=== PATIENT | male | born 1955 | race Caucasian/White ===

== ENCOUNTER 2017-06-11 16:09 | Inpatient (IN) | payer BC ==
--- NOTE | 2017-06-11 16:47 | EKG ---
Test Date: 2017-06-11 Test Time: 16:30:48 Catalyst Recovery Operator: ALLISON MEASUREMENT RESULTS: Intervals: Rate: 144 WA: QRSD: 104 QT: 330 QTc: 510 [place]: P: WA: QRS: -12 T: 150 INTERPRETIVE STATEMENTS: Atrial fibrillation with rapid ventricular response Moderate voltage criteria for LVH, may be normal variant ST & T wave abnormality, consider lateral ischemia or digitalis effect Abnormal ECG Compared to ECG 11/07/2006 06:21:15 Possible ischemia now present Sinus rhythm no longer present Atrial premature complex(es) no longer present Prolonged QT interval no longer present ST (T wave) deviation still present Electronically Signed On 06-11-17 16:46:35 CDT by Ricardo Garcia
[2017-06-11] MEDS ORDERED: METOPROLOL TARTRATE 5 MG/5 ML INJ IV ONE (17:02)
[2017-06-11 17:13] LABS: Protime INR 1.41
[2017-06-11 17:23] LABS: Potassium 3.2 mEq/L (3.6-5.0)
[2017-06-11 17:29] LABS: Bilirubin Direct 1.4 mg/dL (0-0.2); Bilirubin Total 3.2 mg/dL (0.3-1.2); Magnesium 1.8 mg/dL (1.8-2.5)
[2017-06-11 17:32] LABS: CKMB Creatine Kinase MB 4.8 ng/ml (0.3-4.0)
[2017-06-11 17:59] LABS: Thyroid Stimulating Hormone 2.31 uIU/mL (0.34-5.60)
--- NOTE | 2017-06-11 18:02 | RAD REPORT ---
EXAM DESCRIPTION: RAD - Chest Single View - 06/11/2017 5:35 pm CLINICAL HISTORY: Chest pain COMPARISON: CT imaging April 2017 TECHNIQUE: AP portable chest image was obtained 1721 hours . FINDINGS: Small to moderate right pleural effusion is present similar to the April CT study. Trachea is midline. Right lung base atelectasis is present. Minimal infiltrate could be masked. Left lung fi eld is clear. Heart size within normal limits. No pneumothorax. No gross bony abnormality seen. No ac rahul aortic findings suspected. IMPRESSION: Small to moderate right pleural effusion and right base atelectasis are similar to a [facility] 16 CT chest.
--- NOTE | 2017-06-11 18:43 | ER ---
Nurse's Notes [facility] Name: Tex Vergara Age: 61 yrs Sex: Male : 1955 Arrival Date: 06/11/2017 Time: 16:11 Bed 6 Private MD: Diagnosis: Persistent atrial fibrillation;Dyspnea, unspecified Presentation: 06/11 16:17 Presenting complaint: Patient states: I had a EKG an my PCP on Sunday and my rate was la1 145, she told me to come in to the ER but I thought she meant that they would call me when I should come in so I am just making it now. Pt reports fatigue, dizziness at home. Transition of care: patient was not received from another setting of care. Onset of symptoms was June 11, 2017. Initial Sepsis Screen: Does the patient meet any 2 criteria? No. Patient's initial sepsis screen is negative. Does the patient have a suspected source of infection? No. Patient initial sepsis screen negative. Care prior to arrival: None. 16:17 Method Of Arrival: Ambulatory la1 16:17 Acuity: SUMMER 2 la1 Historical: - Allergies: 16:18 No Known Allergies; la1 - PMHx: 16:18 Hypertension; la1 - Immunization history:: Adult Immunizations up to date. - Social history:: Smoking status: Patient uses tobacco products, smokes one pack cigarettes per day. - Family history:: not pertinent. - Hospitalizations: : No recent hospitalization is reported. Screenin:40 Abuse screen: Denies threats or abuse. Denies injuries from another. Nutritional sg screening: No deficits noted. Tuberculosis screening: No symptoms or risk factors identified. Never had TB. Fall Risk None identified. Assessment: 16:40 General: Appears in no apparent distress. comfortable, well groomed, well developed, sg well nourished, Behavior is calm, cooperative, appropriate for age. Pain: Denies pain. Neuro: Level of Consciousness is awake, alert, obeys commands, Oriented to person, place, time, situation, Master Control Engineer are equal bilaterally Moves all extremities. Full function Speech is normal, Facial symmetry appears normal. Cardiovascular: Heart tones S1 S2 present Capillary refill is brisk in bilateral fingers Patient's skin is warm and dry. Chest pain is denied. Respiratory: Airway is patent Respiratory effort is even, unlabored, Respiratory pattern is regular, symmetrical, Breath sounds are clear. GI: No signs and/or symptoms were reported involving the gastrointestinal system. : No signs and/or symptoms were reported regarding the genitourinary system. EENT: No deficits noted. Derm: Skin is normal. Musculoskeletal: No signs and/or symptoms reported regarding the musculoskeletal system. 20:31 Reassessment: report given to Lisa MARQUEZ. bb Vital Signs: 16:19 BP 135 / 105; Pulse 146; Resp 19; Temp 98.9; Pulse Ox 100% on R/A; Weight 86.18 kg; la1 Height 5 ft. 8 in. (172.72 cm); 17:21 BP 143 / 103; Pulse 113 MON; Resp 18 S; Pulse Ox 99% on R/A; sg 18:08 BP 133 / 96; Pulse 102; Resp 18; Pulse Ox 100% on R/A; jb1 19:46 BP 135 / 93; Pulse 110; Resp 24; Temp 98.4; Pulse Ox 96% on R/A; Pain 0/10; ak1 16:19 Body Mass Index 28.89 (86.18 kg, 172.72 cm) la1 17:21 A fib sg ED Course: 16:11 Patient arrived in ED. as 16:18 Triage completed. la1 16:19 Arm band placed on right wrist. la1 16:22 Wale Concepcion MD is Attending Physician. rn 16:49 EKG done, by rail technician. reviewed by Wale Concepcion MD. at1 16:57 Nando Mobley, ALMA is Primary Nurse. sg 17:34 X-ray completed. Portable x-ray completed in exam room. Patient tolerated procedure mh1 well. 17:36 XRAY Chest (1 view) In Process Unspecified. EDMS 18:43 Avel Joyner MD is Hospitalizing Provider. rn 19:08 Urine collected: clean catch specimen, cloudy, tea colored. jb1 19:42 No provider procedures requiring assistance completed. IV is patent, 20g right AC tl1 placed prior to my care.. Patient admitted, IV remains in place. 19:47 Patient has correct armband on for positive identification. Placed in gown. Bed in low ak1 position. Call light in reach. Side rails up X 1. head of english on. Pulse ox on. NIBP on. Administered Medications: 16:55 Drug: Metoprolol 5 mg Route: IVP; Site: right antecubital; sg 17:21 Drug: Metoprolol 5 mg Route: IVP; Site: right antecubital; sg 17:45 Drug: Metoprolol 5 mg Route: IVP; Site: right antecubital; sg 19:00 Drug: Potassium Chloride 40 mEq Route: PO; tl1 Outcome: 18:43 Decision to Hospitalize by Provider. rn 19:47 Admitted to Tele accompanied by tech, family with patient, via wheelchair, with chart. ak1 19:47 Condition: stable 19:47 Instructed on the need for admit. 20:36 Patient left the ED. bb Signatures: Dispatcher [employer] EDMS Matt Brody jb1 Nando Mobley RN RN sg Leona Varghese 1 Alix Whitkaer Brenda, RN RN bb Wale Concepcion MD MD rn gonzales, Amanda, interior design program chair EKG Tat1 Kavon Kim RN RN la1 Jessica Barrera RN RN tl1 Kierra Rodriguez RN RN ak1
--- NOTE | 2017-06-11 18:43 | EDPHYS ---
Physician Documentation [facility] Name: Tex Vergara Age: 61 yrs Sex: Male : 1955 Arrival Date: 06/11/2017 Time: 16:11 Bed 6 Private MD: ED Physician Wale Concepcion HPI: 06/11 18:40 This 61 yrs old Male presents to ER via Ambulatory with complaints of rn Abnormal EKG. 18:40 The patient presents with a history of heart racing. Onset: The symptoms/episode rn began/occurred 4 day(s) ago. Modifying factors: The symptoms are aggravated by light activity. Severity of symptoms: At their worst the symptoms were moderate in the emergency department the symptoms are unchanged. The patient has not experienced similar symptoms in the past. States palpitations and heart racing, for 3-4 days, seen by pcp, told to come to ER last Sunday, patient was confused, so didn't come in, came in today, reports not any worse but hasn't gotten better, + dyspnea on exertion, no chest pain. . Historical: - Allergies: 16:18 No Known Allergies; la1 - PMHx: 16:18 Hypertension; la1 - Immunization history:: Adult Immunizations up to date. - Social history:: Smoking status: Patient uses tobacco products, smokes one pack cigarettes per day. - Family history:: not pertinent. - Hospitalizations: : No recent hospitalization is reported. ROS: 18:40 Constitutional: Negative for fever, chills, and weight loss, Eyes: Negative for injury, rn pain, redness, and discharge, Neck: Negative for injury, pain, and swelling, Cardiovascular: Negative for edema Respiratory: Negative for shortness of breath, cough, wheezing, and pleuritic chest pain, Abdomen/GI: Negative for abdominal pain, nausea, vomiting, diarrhea, and constipation, Back: Negative for injury and pain, MS/Extremity: Negative for injury and deformity, Skin: Negative for injury, rash, and discoloration, Neuro: Negative for headache, weakness, numbness, tingling, and seizure. Exam: 18:40 Constitutional: This is a well developed, well nourished patient who is awake, alert, rn and in no acute distress. Head/Face: Normocephalic, atraumatic. Eyes: Pupils equal round and reactive to light, extra-ocular motions intact. Lids and lashes normal. Conjunctiva and sclera are non-icteric and not injected. Cornea within normal limits. Periorbital areas with no swelling, redness, or edema. Neck: Trachea midline, no thyromegaly or masses palpated, and no cervical lymphadenopathy. Supple, full range of motion without nuchal rigidity, or vertebral point tenderness. No Meningismus. Cardiovascular: tachycardic, irregular, no murmur Respiratory: Lungs have equal breath sounds bilaterally, clear to auscultation and percussion. No rales, rhonchi or wheezes noted. No increased work of breathing, no retractions or nasal flaring. Abdomen/GI: Soft, non-tender, with normal bowel sounds. No distension or tympany. No guarding or rebound. No evidence of tenderness throughout. MS/ Extremity: Pulses equal, no cyanosis. Neurovascular intact. Full, normal range of motion. Equal circumference. Neuro: Awake and alert, GCS 15, oriented to person, place, time, and situation. Cranial nerves II-XII grossly intact. Motor strength 5/5 in all extremities. Sensory grossly intact. Cerebellar exam normal. Vital Signs: 16:19 BP 135 / 105; Pulse 146; Resp 19; Temp 98.9; Pulse Ox 100% on R/A; Weight 86.18 kg; la1 Height 5 ft. 8 in. (172.72 cm); 17:21 BP 143 / 103; Pulse 113 MON; Resp 18 S; Pulse Ox 99% on R/A; sg 18:08 BP 133 / 96; Pulse 102; Resp 18; Pulse Ox 100% on R/A; jb1 19:46 BP 135 / 93; Pulse 110; Resp 24; Temp 98.4; Pulse Ox 96% on R/A; Pain 0/10; ak1 16:19 Body Mass Index 28.89 (86.18 kg, 172.72 cm) la1 17:21 A fib sg MDM: 16:22 Patient medically screened. rn 18:40 Differential diagnosis: arrythmia, dehydration, stress disorder. Data reviewed: vital rn signs, nurses notes, lab test result(s), EKG, and as a result, I will admit patient. Counseling: I had a detailed discussion with the patient and/or guardian regarding: the historical points, exam findings, and any diagnostic results supporting the discharge/admit diagnosis, lab results, radiology results, the need for further work-up and treatment in the hospital. Response to treatment: the patient's symptoms have markedly improved after treatment, and as a result, I will admit patient. Admission orders: after a detailed discussion of the patient's condition and case, the admit orders are written by me. 06/11 16:35 Order name: Basic Metabolic Panel; Complete Time: 18:09 rn 06/11 16:35 Order name: CBC with Diff rn 06/11 16:35 Order name: Ckmb; Complete Time: 18:09 rn 06/11 16:35 Order name: CPK; Complete Time: 18:09 rn 06/11 16:35 Order name: LFT's; Complete Time: 18: rn 06/11 16:35 Order name: Magnesium; Complete Time: 18: rn 06/11 16:35 Order name: PT-INR; Complete Time: 17:37 rn 06/11 16:35 Order name: Ptt, Activated; Complete Time: 17:37 rn 06/11 16:35 Order name: Troponin (emerg Dept Use Only); Complete Time: 17:37 rn 06/11 16:35 Order name: TSH; Complete Time: 18:09 rn 06/11 16:35 Order name: T4 Free; Complete Time: 18: rn 06/11 18:53 Order name: Comprehensive Metabolic Panel EDMS 06/11 18:53 Order name: Comprehensive Metabolic Panel EDMS 06/11 16:35 Order name: XRAY Chest (1 view); Complete Time: 18:09 rn 06/11 16:35 Order name: EKG; Complete Time: 16:39 rn 06/11 18:53 Order name: CONS Pharmacy Consult EDMS 06/11 18:53 Order name: Comprehensive Metabolic Panel EDMS 06/11 18:53 Order name: Comprehensive Metabolic Panel EDMS 06/11 18:53 Order name: Magnesium EDMS 06/11 18:53 Order name: Magnesium EDMS 06/11 18:54 Order name: Urinalysis EDMS 06/11 18:54 Order name: CBC with Automated Diff EDMS 06/11 18:54 Order name: CBC with Automated Diff EDMS 06/11 18:54 Order name: CBC with Automated Diff EDMS 06/11 18:54 Order name: CBC with Automated Diff EDMS 06/11 19:13 Order name: Urine Dipstick--Ancillary (enter results) em1 06/11 19:20 Order name: Urine Dipstick-Ancillary EDSD 06/11 16:35 Order name: Cardiac monitoring; Complete Time: 16:56 rn 06/11 16:35 Order name: EKG - Nurse/Tech; Complete Time: 19:09 rn 06/11 16:35 Order name: IV Saline Lock; Complete Time: 16:56 rn 06/11 16:35 Order name: Labs collected and sent; Complete Time: 16:56 rn 06/11 16:35 Order name: O2 Per Protocol; Complete Time: 16:56 rn 06/11 16:35 Order name: O2 Sat Monitoring; Complete Time: 16:56 rn 06/11 16:35 Order name: Urine Dipstick-Ancillary (obtain specimen); Complete Time: 19:08 rn 06/11 18:53 Order name: CONS Physician Consult EDSD 06/11 18:54 Order name: Heart Healthy EDSD Administered Medications: 16:55 Drug: Metoprolol 5 mg Route: IVP; Site: right antecubital; sg 17:21 Drug: Metoprolol 5 mg Route: IVP; Site: right antecubital; sg 17:45 Drug: Metoprolol 5 mg Route: IVP; Site: right antecubital; sg 19:00 Drug: Potassium Chloride 40 mEq Route: PO; tl1 Disposition: 06/11/17 18:43 Hospitalization ordered by Avel Joyner for Inpatient Admission. Preliminary diagnosis are Persistent atrial fibrillation, Dyspnea, unspecified. - Bed requested for Telemetry/MedSurg (Inpatient). - Status is Inpatient Admission. bb - Condition is Stable. - Problem is new. - Symptoms have improved. UTI on Admission? No Signatures: Dispatcher [employer] EDSD Leona Mahan RN RN mw Gay, Steven RN ALMA sg Anyi Petersen RN RN bb Nieto, Roman, MD MD rn Attema, Lee, RN RN la1 Jessica Barrera RN RN tl1 Corrections: (The following items were deleted from the chart) 17:05 16:39 BNP+C.LAB.BRZ ordered. [facility] EDSD
[2017-06-11] MEDS ORDERED: ONDANSETRON 4 MG/2 ML VIAL IV PRN (18:49)
[2017-06-11] MEDS ORDERED: ACETAMINOPHEN 500 MG TAB PO PRN (18:49)
[2017-06-11] MEDS ORDERED: METOPROLOL TARTRATE 5 MG/5 ML INJ IV PRN (18:53)
[2017-06-11] MEDS ORDERED: POTASSIUM CL SA 10 MEQ TAB PO ONE (18:57)
[2017-06-11 18:58] LABS: Absolute Lymphocytes (CBC) 1.7 K/uL (0.7-4.9); Absolute Neutrophil 4.9 K/uL (1.8-8.0); Basophils % 1.2 % (0-1.3); Eosinophils % 2.2 % (0-4.4); Hematocrit 48.2 % (39.6-49.0); MCH 25.4 pg (27.0-35.0); MCV 77.4 fL (80-100); MPV 8.6 fL (7.6-11.3); Monocytes % 12.7 % (3.3-12.3); RBC Red Blood Cell Count 6.23 M/uL (4.33-5.43)
[2017-06-11] MEDS: NA CHLORIDE 0.9% 1,000 ML IV SCH ×2 (19:00→21:50)
[2017-06-11 19:20] LABS: Urine Blood 1+ (NEG); Urine Glucose NEGATIVE (NEG); Urine Protein 3+ (NEG); Urine Specific Gravity 1.025 (1.005-1.030); Urine pH 6.5 (5.0-7.0)
--- NOTE | 2017-06-11 20:33 | P.HP ---
Certification for Inpatient Patient admitted to: Inpatient With expected LOS: >2 Midnights Practitioner: I am a practitioner with admitting privileges, knowledge of patient current condition, hospital course, and medical plan of care. Services: Services provided to patient in accordance with Admission requirements found in Title 42 Section 412.3 of the Code of Federal Regulations Patient History Date of Service: 06/11/17 Reason for admission: new onset A.Fib History of Present Illness: Mr Vergara is a 61 years old man with history of HTN, who start about 3-4 weeks ago with palpitations. He has been feeling that his heart is racing with minimal exercise. He has had SOB as well, being worse in the last few days. He denied any fever or chills. He went to see his PCP last 3 days ago, and was referred to come to ED for evaluation. The patient was confused with the advise and came today. He denied any chest pain associated with his symptoms. Lab work is remarkable for elevated bilirubin, alk phos, elevated AST, TSH within normal limits. He drinks 5 or more beers on daily basis. He denied any abdominal pain. Allergies No Known Allergies Allergy (Unverified 06/11/17 20:11) - Past Medical/Surgical History -: HTN -: chronic back pain Past Surgical History: Reviewed- Non-Contributory - Family History Family History: Reviewed- Non-Contributory - Social History Smoking Status: Current every day smoker Counseled patient to stop smoking for: less than 10 minutes Smoking therapy provided: Yes Patient receptive to therapy: Yes Alcohol use: Yes CD- Drugs: No Place of Residence: Home Review of Systems 10-point ROS is otherwise unremarkable Physical Examination - Physical Exam General: Alert, In no apparent distress HEENT: PERRLA, Mucous membr. moist/pink, EOMI, Sclerae nonicteric Neck: Supple, 2+ carotid pulse no bruit, No LAD, Without JVD or thyroid abnormality Respiratory: Normal air movement, Diminished (right base) Cardiovascular: Regular rate/rhythm, Normal S1 S2 Gastrointestinal: Normal bowel sounds, Tenderness (mild tenderness to palpation RUQ) Musculoskeletal: No tenderness Integumentary: No rashes Neurological: Normal speech, Normal strength at 5/5 x4 extr, Normal tone, Normal affect Lymphatics: No axilla or inguinal lymphadenopathy - Studies Laboratory Data (last 24 hrs) 06/11/17 18:40: WBC 8.0, Hgb 15.8, Hct 48.2, Plt Count 229 06/11/17 16:50: PT 16.7 H, INR 1.41, APTT 22.1 L 06/11/17 16:50: B-Natriuretic Peptide Cancelled 06/11/17 16:50: Sodium 132 L, Potassium 3.2 L, BUN 18, Creatinine 1.28 H, Glucose 89, Magnesium 1.8, Total Bilirubin 3.2 H, AST 73 H, ALT 44, Alkaline Phosphatase 157 H Assessment and Plan - Problems (Diagnosis) (1) New onset atrial fibrillation Current Visit: Yes Status: Acute (2) HTN (hypertension) Current Visit: Yes Status: Acute Qualifiers: Hypertension type: essential hypertension Qualified Code(s): I10 - Essential (primary) hypertension (3) Abnormal liver function Current Visit: Yes Status: Acute (4) Chronic back pain Current Visit: Yes Status: Acute Qualifiers: Back pain location: back pain in unspecified location Back pain laterality : unspecified Qualified Code(s): M54.9 - Dorsalgia, unspecified; G89.29 - Other chronic pain; G89.29 - Other chronic pain (5) Tobacco abuse Current Visit: Yes Status: Acute - Plan Mr Vergara will be admitted to the hospital due to new onset atrial fibrillation. HR is about 120's at the moment, will add oral metoprolol, he has been started on lovenox full dose, for eventual RICO and CV, cardiology consulted. Will order abdominal US to evaluated biliary tree. - Advance Directives Does patient have a Living Will: No Does patient have a Durable POA for Healthcare: No - Code Status/Comfort Care Code Status Assessed: Yes Code Status: Full Code
[2017-06-11] MEDS ORDERED: ENOXAPARIN 100 MG/ML SYR SQ SCH (21:00)
[2017-06-11 21:17] VITALS: BMI 28.8
[2017-06-11] MEDS: METOPROLOL TAR 25 MG TAB PO SCH (22:00)
[2017-06-11 22:23] LABS: Urine Appearance CLEAR; Urine Color DK YELLOW; Urine Glucose NEGATIVE (NEG)
[2017-06-11 22:24] LABS: Urine Bilirubin 2+ (NEG); Urine Blood 2+ (NEG); Urine Protein 3+ (NEG)
[2017-06-11 22:25] LABS: Urine Microscopic Reflex ORDER UMIC
[2017-06-11 22:32] LABS: Urine Bacteria <20 /HPF (NONE SEEN); Urine RBC 20-50 /HPF (NONE SEEN)
[2017-06-11 22:33] LABS: Urine Culture Reflex Order NOT NEEDED
[2017-06-11] MEDS: ENOXAPARIN 100 MG/ML SYR SQ SCH (23:15)
[2017-06-12] MEDS: NA CHLORIDE 0.9% 1,000 ML IV SCH (05:58)
[2017-06-12] MEDS: METOPROLOL TAR 25 MG TAB PO SCH (05:58)
[2017-06-12 06:10] LABS: Absolute Lymphocytes (CBC) 1.4 K/uL (0.7-4.9); Absolute Monocytes 0.7 K/uL (0.1-1.3); Absolute Neutrophil 4.3 K/uL (1.8-8.0); Basophils % 1.3 % (0-1.3); Eosinophils % 1.3 % (0-4.4); Hematocrit 48.2 % (39.6-49.0); MCH 24.8 pg (27.0-35.0); MCV 78.6 fL (80-100); MPV 9.1 fL (7.6-11.3); Monocytes % 11.2 % (3.3-12.3); RBC Red Blood Cell Count 6.13 M/uL (4.33-5.43)
[2017-06-12 06:26] LABS: Albumin 2.5 g/dL (3.2-5.5); Bilirubin Total 3.8 mg/dL (0.3-1.2); Potassium 3.9 mEq/L (3.6-5.0); Protein, Total 6.1 g/dL (6.0-8.3)
[2017-06-12] MEDS ORDERED: POTASSIUM CL SA 10 MEQ TAB PO ONE (06:49)
[2017-06-12] MEDS: ENOXAPARIN 100 MG/ML SYR SQ SCH (08:57)
--- NOTE | 2017-06-12 09:15 | RAD REPORT ---
EXAM DESCRIPTION: US - Abdomen Exam Complete - 06/12/2017 7:50 am CLINICAL HISTORY: Abnormal liver function COMPARISON: CT chest May 11, CT abdomen March 15 FINDINGS: Gallbladder size is normal. Multiple small mobile gallstones are identified. No wall thick ening or pericholecystic fluid. Common bile duct is 5 mm, normal with no common duct stone identified . No focal lesion identified within the liver parenchyma. No capsular nodularity. Portal vein was dif ficult to evaluate. No portal vein thrombus identifiable. No splenomegaly or focal splenic process se en. The pancreas is obscured. No pancreatic abnormality seen on the February CT study. No hydronephrosis or suspicious mass in either kidney. A small 11 mm right renal cyst is identified. Aorta is too obscured for assessment. No aneurysm or acute finding in February. No bulky lymphadenopat hy. Right pleural effusion is identified only partially imaged. Small amount of ascites is identified. IMPRESSION: Pleural effusion incompletely assessed. Small quantity of ascites identified. No hepatosplenomegaly or focal lesions identified. No nodular liver capsule or other suspicious liver finding. Multiple small gallstones without acute gallbladder or biliary tree finding. Pancreas and aorta are obscured. No abnormalities were seen in February.
[2017-06-12 10:05] VITALS: O2SAT 94
[2017-06-12] MEDS ORDERED: TRAMADOL HCL 50 MG TAB PO PRN (10:45)
[2017-06-12] MEDS ORDERED: BENZONATATE 100 MG CAP PO PRN (11:00)
[2017-06-12] MEDS ORDERED: CELECOXIB 100 MG CAPSULE PO PRN (11:00)
--- NOTE | 2017-06-12 11:15 | PN ---
Date of Progress Note: 06/12/2017 Subjective: The patient is seen and examined, chart reviewed, and case discussed with RN. The patie nt states he feels about the same, still in atrial fibrillation. Review of Systems: Negative except as above. Medications: Reviewed. Physical Examination: Vital Signs: Temperature 98.3, heart rate 109, blood pressure 141/87, respirations 20, O2 94% on franco m air. General: Awake, alert, oriented x3. No acute distress. CV: S1, S2. Irregularly irregular. Peripheral pulses present. No murmurs. Respiratory: Moving air well bilaterally. No wheezing. Gastrointestinal: Abdomen is soft, nontender, and nondistended. Positive bowel sounds. Extremities: No clubbing, cyanosis, or edema. Neurologic: Nonfocal. Laboratory Data: Sodium 135, potassium 3.9, chloride 101, CO2 26, BUN 21, creatinine 1.11, glucose 7 5, calcium 8.6, magnesium 2. Total bilirubin 3.8, AST 74, ALT 42, alkaline phosphatase 136, albumin 2.5. WBC 6.7, H and H 15.2 and 48.2, platelets 259. Abdominal ultrasound shows pleural effusion inc ompletely assessed, small quantity of ascites identified. No hepatomegaly or splenomegaly or focal l esions identified. No nodular liver capsule or other suspicious liver finding. Multiple small galls tones without acute gallbladder or biliary tree finding. Pancreas and aorta are obscured. No abnorm alities were seen in February for comparison. Assessment And Plan: A 61-year-old male with: 1.New onset atrial fibrillation, now rate controlled. Initially was in rapid ventricular rate. We will continue beta-blockers. Echocardiogram is pending. Appreciate Dr. Monsalve's input. 2.Mild elevated troponin level secondary to new onset atrial fibrillation. No chest pain. 3.Essential hypertension. We will resume home medications. 4.Abnormal LFTs of unclear etiology. Ultrasound of the liver does not show any abnormalities. No b iliary tree dilation. 5.Acute kidney injury, resolved. We will continue with IV fluids. 6.Hypokalemia, corrected. We will continue to monitor. 7.Hyponatremia, improved. 8.Chronic back pain, midline with sciatica. We will continue pain medications. 9.Nicotine dependence with cigarette smoking. Counseled. 10.Osteoarthritis, generalized. 11.Gastrointestinal and deep venous thrombosis prophylaxis addressed with PPI and Lovenox. Plan: Continue Lovenox therapeutic dose. Follow up on echocardiogram. The patient will need to be switched to oral anticoagulants before discharge. We will follow up with Cardiology. NENA Voice ID: [id number] Report ID: [id number]
--- NOTE | 2017-06-12 12:15 | CON ---
Date of Consultation: 06/12/[address] Joyner service on 06/11/2017. Reason For Consultation: Atrial fibrillation. History Of Present Illness: Mr. Vergara is a 61-year-old white male. He actually has an appointment yoana chinchilla with Dr. Garcia. Has seen Dr. Garcia in the past for a possible aneurysm, but apparently workup did not show that he had one. He went to his physician yesterday because of sinus problem, was foun d to have atrial fibrillation that is asymptomatic, was sent to the emergency room and was admitted. He denied any heart symptoms. Past Medical History: Includes hypertension. Allergies: NONE. Review of Systems: Negative. Social History: Negative. Family History: Negative. The patient has been placed on metoprolol since he was admitted and in at rial fibrillation at a rate of 100. Physical Examination: Vital Signs: Stable. Afebrile. Atrial fibrillation at 144 when he came in. HEENT: Negative. Neck: Supple. No bruit. Chest: Clear. Cardiac: Revealed atrial fibrillation. Abdomen: Benign. Extremities: No clubbing, cyanosis, or edema. Diagnostic Data: Creatinine is 1.28. Chest x-ray showed a small pleural effusion. Potassium 3.2, t roponin of 0.04. Impression And Plan: 1.Atrial fibrillation. Agree with metoprolol. I think the patient can go home on beta-blockers and an anticoagulant, preferably Eliquis considering his renal insufficiency 5 mg b.i.d. He has an appo intment today with Dr. Garcia. I will cancel that for 2 weeks at which time I think we should have a n outpatient Lexiscan if he has not had one and if he does not convert with beta scarlett such as Beta pace we will consider cardioversion. 2.Hypertension, well controlled. 3.Renal insufficiency. 4.Small right pleural effusion. 5.Elevated troponin secondary to tachycardia. 6.Hypokalemia that needs to be corrected. I will discuss the case with Dr. Joyner. LAY/ELIUDL Voice ID: [id number] Report ID: [id number]
[2017-06-12 12:17] VITALS: BP 127/89; TEMP 98.4
--- NOTE | 2017-06-12 12:25 | ECHO ---
HEIGHT: 5 ft 8 in WEIGHT: 190 lb 0 oz DATE OF STUDY: 06/02/[address]: Dmitry Marmolejo MD 2-DIMENSIONAL: YES M.MODE: YES DOPPLER: YES COLOR FLOW: YES TDS: PORTABLE: DEFINITY: BUBBLE STUDY: DIAGNOSIS: ATRIAL FIBRILLATION CARDIAC HISTORY: CATHERIZATION: NO SURGERY: YES PROSTHETIC VALVE: YES PACEMAKER: NO MEASUREMENTS (cm) DIASTOLIC (NORMALS) SYSTOLIC (NORMALS) IVSd 0.9 (0.6-1.2) LA Diam 5.0 (1.9-4.0) LVEF 50-55% LVIDd 4.5 (3.5-5.7) LVIDs 3.6 (2.0-3.5) %FS 21% LVPWd 0.9 (0.6-1.2) Ao Diam 4.0 (2.0-3.7) 2 DIMENSIONAL ASSESSMENT: RIGHT ATRIUM: DILATED LEFT ATRIUM: DILATED RIGHT VENTRICLE: NORMAL LEFT VENTRICLE: NORMAL TRICUSPID VALVE: NORMAL MITRAL VALVE: THICKENED CALCIFIED RING, PROBABLE RING ANNULOPLASTY PULMONIC VALVE: NORMAL AORTIC VALVE: BIO-PROSTHETIC PERICARDIAL EFFUSION: NONE AORTIC ROOT: LEFT VENTRICULAR WALL MOTION: NORMAL (LOWER LIMIT OF NORMAL LEFT VENTRICULAR EJECTION FRACTION) DOPPLER/COLOR FLOW: MODERATE MITRAL REGURGITATION. MILD MITRAL AND TRICUSPID REGURGITATION. ESTIMATED RIGHT VENTRICULAR SYSTOLIC PRESSURE 40 mmHg (MILD PULMONARY HYPERTENSION). NO SIGNIFICANT AORTIC STENOSIS. COMMENTS: NORMAL LEFT VENTRICULAR EJECTION FRACTION. DILATED LEFT AND RIGHT ATRIUM. PROBABLE BIO-PROSTHETIC VALVE AORTIC VALVE WITH MILD AORTIC REGURGITATION. NO AORTIC STENOSIS. NO MITRAL STENOSIS. MILD MITRAL REGURGITATION. MILD TRICUSPID REGURGITATION. MILD PULMONARY HYPERTENSION. LARGE RIGHT PLEURAL EFFUSION. TECHNOLOGIST: KARINA PRETTY
[2017-06-12] MEDS ORDERED: GABAPENTIN 300 MG CAP PO SCH (14:00)
--- NOTE | 2017-06-12 16:13 | P.DS ---
Admission Date: 06/11/17 Discharge Date: 06/12/17 Disposition: ROUTINE DISCHARGE Discharge Condition: FAIR Reason for Admission: new onset A.Fib Consultations: Cardiology Dr. Monsalve - Problems (1) Abnormal liver function Onset Date: 06/12/17 Status: Acute (2) Chronic back pain Onset Date: 06/12/17 Status: Acute Qualifiers: Back pain location: back pain in unspecified location Back pain laterality : unspecified Qualified Code(s): M54.9 - Dorsalgia, unspecified; G89.29 - Other chronic pain; G89.29 - Other chronic pain (3) HTN (hypertension) Onset Date: 06/12/17 Status: Acute Qualifiers: Hypertension type: essential hypertension Qualified Code(s): I10 - Essential (primary) hypertension (4) New onset atrial fibrillation Onset Date: 06/12/17 Status: Acute (5) Tobacco abuse Onset Date: 06/12/17 Status: Acute Brief History of Present Illness: From H and P Mr Vergara is a 61 years old man with history of HTN, who start about 3-4 weeks ago with palpitations. He has been feeling that his heart is racing with minimal exercise. He has had SOB as well, being worse in the last few days. He denied any fever or chills. He went to see his PCP last 3 days ago, and was referred to come to ED for evaluation. The patient was confused with the advise and came today. He denied any chest pain associated with his symptoms. Lab work is remarkable for elevated bilirubin, alk phos, elevated AST, TSH within normal limits. He drinks 5 or more beers on daily basis. He denied any abdominal pain. Hospital Course: Patient is a 61-year-old male who was admitted to the hospital for AFib with RVR , new onset. Patient was started on beta-blockers which improved his rate however patient stayed in atrial fibrillation. Cardiology was consulted and patient was evaluated. Patient recently saw Dr. Garcia in his office and had a recent echocardiogram which was normal. Patient to the did not have any chest pain. Did have mild troponin elevation which was secondary to the a AFib. The patient was started on anticoagulation with Lovenox and was switched over to Eliquis as outpatient. Patient otherwise did well over the course of the hospital stay. Patient was then cleared for discharge from cardiology standpoint. Patient will follow up with Dr. Garcia in his office in 2 weeks to have outpatient stress test. Patient was counseled extensively regarding smoking cessation and alcohol cessation. Patient did have some mild electrolyte abnormalities which were corrected. His TSH level was normal. Patient did have some mild acute kidney injury which was corrected with IV fluids. Patient was instructed to stop his Celebrex. Vital Signs/Physical Exam: Temp Pulse Resp BP Pulse Ox 98.4 F 102 H 20 127/89 94 06/12/17 12:00 06/12/17 12:00 06/12/17 12:00 06/12/17 12:00 06/12/17 12:00 Other Physical/Emotional Findings: PLEASE SEE PROGRESS NOTE DICTATED ON DAY OF DISCHARGE FOR PHYSICAL EXAM FINDINGS Laboratory Data at Discharge: WBC 6.7 K/uL (4.3-10.9) D 06/12/17 05:23 Hgb 15.2 g/dL (13.6-17.9) 06/12/17 05:23 Hct 48.2 % (39.6-49.0) 06/12/17 05:23 Plt Count 259 K/uL (152-406) 06/12/17 05:23 PT 16.7 SECONDS (9.5-12.5) H 06/11/17 16:50 INR 1.41 06/11/17 16:50 APTT 22.1 SECONDS (24.3-36.9) L 06/11/17 16:50 Sodium 135 mEq/L (135-145) 06/12/17 05:23 Potassium 3.9 mEq/L (3.6-5.0) 06/12/17 05:23 BUN 21 mg/dL (6-20) H 06/12/17 05:23 Creatinine 1.11 mg/dL (0.61-1.24) 06/12/17 05:23 Glucose 75 mg/dL (65-120) 06/12/17 05:23 Magnesium 2.0 mg/dL (1.8-2.5) 06/12/17 05:23 Total Bilirubin 3.8 mg/dL (0.3-1.2) H 06/12/17 05:23 AST 74 IU/L (10-42) H 06/12/17 05:23 ALT 42 IU/L (10-60) 06/12/17 05:23 Alkaline Phosphatase 136 IU/L (42-121) H 06/12/17 05:23 B-Natriuretic Peptide Cancelled 06/11/17 16:50 Home Medications: Amoxicillin [Amoxil] 1 tab PO BID 06/12/17 Apixaban [Eliquis] 5 mg PO BID #60 tablet 06/12/17 Benzonatate 1 cap PO TIDP PRN 06/12/17 Cyanocobalamin [Vitamin B-12*] 500 mcg PO DAILY 06/12/17 Fluticasone Propionate [Flovent Diskus] 1 spray JELENA BID 06/12/17 Folic Acid 1 mg PO DAILY 06/12/17 Gabapentin [Gralise] 1 tab PO TID 06/12/17 Hydrochlorothiazide [Hydrochlorothiazide*] 12.5 mg PO DAILY 06/12/17 Lisinopril 1 tab PO DAILY 06/12/17 Metoprolol Tartrate 50 mg PO BID #60 tablet 06/12/17 Potassium Gluconate 550 mg PO DAILY 06/12/17 Tramadol HCl [Ultram] 1 tab PO BIDP PRN 06/12/17 New Medications: Apixaban [Eliquis] 5 mg PO BID #60 tablet Metoprolol Tartrate 50 mg PO BID #60 tablet Patient Discharge Instructions: Follow up with PCP in 3 3 days. Follow up with rehab tech Dr. Garcia in 2 weeks. Return to ER for worsening condition Diet: AHA Activity: Ad mara Time spent managing pt's care (in minutes): 37
[2017-06-12] MEDS ORDERED: HOME MED 1 EA UNK (Fluticasone Propionate [Flovent Diskus] 1 SPRAY) NAS SCH (21:00)
[2017-06-13] MEDS ORDERED: FOLIC ACID 1 MG TABLET PO SCH (09:00)
[2017-06-13] MEDS ORDERED: CYANOCOBALAMIN 1,000 MCG TAB PO SCH (09:00)
[2017-06-13] MEDS ORDERED: POTASSIUM GLUCONATE 550 MG PO SCH (09:00)
[2017-06-13] MEDS ORDERED: LISINOPRIL 10 MG TAB PO SCH (09:00)
== END 2017-06-12 14:33 | disposition home or self-care (01) | DRG 309 ==
LOC: ER 16:09 → ERHOLD 18:43 → 4TH 20:13
PROVIDERS: ADMIT Family Medicine; ATTEND Internal Medicine
DX: I48.91 Unspecified atrial fibrillation (principal); N17.9 Acute kidney failure, unspecified; E87.1 Hypo-osmolality and hyponatremia; I10 Essential (primary) hypertension; F17.210 Nicotine dependence, cigarettes, uncomplicated; R94.5 Abnormal results of liver function studies; M54.9 Dorsalgia, unspecified; E87.6 Hypokalemia; M54.30 Sciatica, unspecified side; M15.9 Polyosteoarthritis, unspecified
CPT/HCPCS: 36415; 71045; 76700; 80048; 80053; 80076; 81003; 81015; 82550; 82553; 83735; 84439; 84443; 84484; 85025; 85610; 85730; 93005; 93306; 94760; 96374; 99285; J1650; J7030

== ENCOUNTER 2017-06-14 08:26 | Emergency (ER) | payer BC ==
[2017-06-14] MEDS ORDERED: NA CHLORIDE 0.9% 500 ML ONE (08:57)
--- NOTE | 2017-06-14 09:14 | EKG ---
Test Date: 2017-06-14 Test Time: 08:52:12 Vat Washer: SILVIA MEASUREMENT RESULTS: Intervals: Rate: 98 DC: QRSD: 108 QT: 380 QTc: 485 [place]: P: DC: QRS: 1 T: 187 INTERPRETIVE STATEMENTS: Atrial fibrillation Minimal voltage criteria for LVH, may be normal variant ST & T wave abnormality, consider inferolateral ischemia Prolonged QT Abnormal ECG Compared to ECG 06/11/2017 16:30:48 Prolonged QT interval now present ST (T wave) deviation still present Possible ischemia still present Electronically Signed On 06-14-17 09:13:26 CDT by Gabriel Monsalve
[2017-06-14 09:30] LABS: Absolute Lymphocytes (CBC) 1.3 K/uL (0.7-4.9); Absolute Monocytes 0.9 K/uL (0.1-1.3); Absolute Neutrophil 3.9 K/uL (1.8-8.0); Eosinophils % 2.5 % (0-4.4); Hematocrit 50.5 % (39.6-49.0); Lymphocytes % 20.5 % (15.3-44.8); MCH 25.2 pg (27.0-35.0); MCV 77.5 fL (80-100); MPV 8.7 fL (7.6-11.3); Monocytes % 13.8 % (3.3-12.3); RBC Red Blood Cell Count 6.51 M/uL (4.33-5.43)
[2017-06-14 09:34] LABS: Protime INR 2.78
[2017-06-14 09:35] LABS: Potassium 4.1 mEq/L (3.6-5.0)
--- NOTE | 2017-06-14 09:41 | ER ---
Nurse's Notes [facility] Name: Tex Vergara Age: 61 yrs Sex: Male : 1955 Arrival Date: 06/14/2017 Time: 08:28 Bed 6 Private MD: out of town, doctor Diagnosis: Chronic obstructive pulmonary disease, unspecified;Chronic atrial fibrillation Presentation: 06/14 08:39 Presenting complaint: Patient states: shortness of breath x 2 weeks. Pt was seen in ER ss three days ago and admitted and then discharged the next day. Pt has follow up appointment tomorrow, but reports shortness of breath is just too bad to wait. Transition of care: patient was not received from another setting of care. Onset of symptoms was May 31, 2017. Initial Sepsis Screen: Does the patient meet any 2 criteria? HR > 90 bpm. Does the patient have a suspected source of infection? No. Patient's initial sepsis screen is negative. Care prior to arrival: None. 08:39 Method Of Arrival: Ambulatory ss 08:39 Acuity: SUMMER 3 ss Triage Assessment: 10:12 General: Appears in no apparent distress. Respiratory: Onset: The symptoms/episode tw2 began/occurred 2 weeks ago,see here 3 days ago, the patient has mild shortness of breath. Historical: - Allergies: 08:37 No Known Allergies; tw2 - Home Meds: 09:45 Eliquis 5 mg oral tab 1 tab 2 times per day [Active]; metoprolol tartrate 50 mg Oral tw2 tab 1 tab 2 times per day [Active]; amoxicillin 875 mg Oral tab 1 tab every 12 hours [Active]; benzonatate 200 mg oral cap 1 cap 3 times per day [Active]; fluticasone 50 mcg/actuation nasal spsn 2 sprays once daily [Active]; hydrochlorothiazide 12.5 mg Oral tab 1 tab once daily [Active]; Celebrex 200 mg Oral cap 1 cap 2 times per day [Active]; folic acid 1 mg Oral tab 1 tab once daily [Active]; lisinopril 10 mg Oral tab 1 tab once daily [Active]; gabapentin 300 mg oral cap 1 cap 3 times per day [Active]; Vitamin B-12 500 mcg Oral tab [Active]; - PMHx: 08:37 Hypertension; tw2 09:45 Atrial Fib; tw2 - Immunization history:: Adult Immunizations up to date. - Social history:: Smoking status: Patient uses tobacco products, smokes one pack cigarettes per day. Screenin:12 Abuse screen: Denies threats or abuse. Nutritional screening: No deficits noted. tw2 Tuberculosis screening: No symptoms or risk factors identified. Fall Risk None identified. Assessment: 08:42 General: Appears uncomfortable, Behavior is cooperative, appropriate for age. Pain: tw2 Denies pain. 09:53 Reassessment: Patient appears in no apparent distress at this time. No changes from tw2 previously documented assessment. Patient and/or family updated on plan of care and expected duration. Pain level reassessed. Patient is alert, oriented x 3, equal unlabored respirations, skin warm/dry/pink. 09:53 Neuro: Level of Consciousness is awake, alert, obeys commands, Oriented to person, tw2 place, time, situation. Cardiovascular: Denies chest pain, shortness of breath, Rhythm is atrial fibrillation. Respiratory: Reports shortness of breath at rest Airway is patent Respiratory effort is even, unlabored, Respiratory pattern is regular, symmetrical, Breath sounds are diminished bilaterally. GI: No signs and/or symptoms were reported involving the gastrointestinal system. Abdomen is flat, Bowel sounds present X 4 quads. : No signs and/or symptoms were reported regarding the genitourinary system. EENT: No signs and/or symptoms were reported regarding the EENT system. Derm: No signs and/or symptoms reported regarding the dermatologic system. Skin is intact, is healthy with good turgor, Skin temperature is warm. Musculoskeletal: Range of motion: intact in all extremities. Vital Signs: 08:39 BP 137 / 97; Pulse 103; Resp 21; Temp 97.4(TE); Pulse Ox 96% on R/A; Weight 86.18 kg; ss Height 5 ft. 8 in. (172.72 cm); Pain 0/10; 09:45 BP 140 / 96; Pulse 98; Resp 22; Pulse Ox 94% ; tw2 10:12 Pulse Ox 97% on 2 lpm NC; tw2 10:15 BP 143 / 98; Pulse 112; Resp 17; Pulse Ox 96% on R/A; tw2 11:12 BP 139 / 96; Pulse 95; Resp 17; Pulse Ox 95% on R/A; tw2 08:39 Body Mass Index 28.89 (86.18 kg, 172.72 cm) ss 09:45 pt placed on o2 via nc at this time, will continue to monitor. tw2 ED Course: 08:28 Patient arrived in ED. mr 08:28 out of town, doctor is Private Physician. mr 08:39 Arm band placed on right wrist. ss 08:40 Call light in reach. Adult w/ patient. monitor and storage bin tender on. Pulse ox on. NIBP on. Warm tw2 blanket given. 08:41 Triage completed. ss 08:42 Caroline Rondon, ALMA is Primary Nurse. tw2 08:42 Peter Peacock MD is Attending Physician. wendy 08:58 EKG done, by process engineering technician. reviewed by Peter Peacock MD. tc 09:11 No provider procedures requiring assistance completed. Inserted saline lock: 22 gauge tw2 in left antecubital area, using aseptic technique. Blood collected. 09:17 XRAY Chest (1 view) In Process Unspecified. EDMS 09:36 Blood Culture Adult (2) Sent. tw2 09:39 Valencia French MD is Hospitalizing Provider. wendy 10:54 Gabriel Monsalve MD is Referral Physician. rp3 10:55 Apolinar Pierre MD is Referral Physician. rp3 11:13 IV discontinued, intact, bleeding controlled, No redness/swelling at site. Pressure tw2 dressing applied. Administered Medications: 09:11 Drug: NS 0.9% 1000 ml Route: IV; Rate: 75 ml/hr; Site: left antecubital; tw2 11:11 Follow up: Response: No adverse reaction; IV Status: Order to discontinue infusion tw2 09:52 Drug: Lasix 20 mg Route: IVP; Site: left antecubital; tw2 11:11 Follow up: Response: No adverse reaction tw2 09:53 Drug: Lopressor (metoprolol TARTRATE) 50 mg Route: PO; tw2 11:11 Follow up: Response: No adverse reaction tw2 Outcome: 09:41 Decision to Hospitalize by Provider. wendy 10:56 Discharge ordered by . rp3 11:13 Discharged to home ambulatory, with significant other. tw2 11:13 Condition: stable 11:13 Discharge instructions given to patient, significant other, Instructed on discharge instructions, follow up and referral plans. medication usage, Demonstrated understanding of instructions, follow-up care, medications, Prescriptions given X 1. 11:14 Patient left the ED. tw2 Signatures: Dispatcher [employer] EDMS Peter Peacock MD MD cha Rivera, Maria mr Smirch, Shelby, ALMA RN Funmilayo Rubio, amusement park worker EKG Ttc Caroline Rondon RN RN tw2 Valencia French MD MD rp3 Corrections: (The following items were deleted from the chart) 09:54 08:42 General: Appears uncomfortable, Behavior is cooperative, appropriate for age, tw2 tw2
--- NOTE | 2017-06-14 09:41 | EDPHYS ---
Physician Documentation [facility] Name: Tex Vergara Age: 61 yrs Sex: Male : 1955 Arrival Date: 06/14/2017 Time: 08:28 Bed 6 Private MD: out of town, doctor ED Physician Peter Peacock HPI: 06/14 09:32 This 61 yrs old Male presents to ER via Ambulatory with complaints of wendy Breathing Difficulty. 09:32 The patient has shortness of breath at rest, with light activity. Onset: The wendy symptoms/episode began/occurred 2 day(s) ago. Duration: The symptoms are continuous, and are steadily getting worse. The patient's shortness of breath is aggravated by supine position, walking, is alleviated by rest, sitting up, application of supplemental oxygen. Associated signs and symptoms: The patient has no apparent associated signs or symptoms. Severity of symptoms: At their worst the symptoms were mild in the emergency department the symptoms are unchanged. The patient has not experienced similar symptoms in the past. Historical: - Allergies: 08:37 No Known Allergies; tw2 - Home Meds: 09:45 Eliquis 5 mg oral tab 1 tab 2 times per day [Active]; metoprolol tartrate 50 mg Oral tw2 tab 1 tab 2 times per day [Active]; amoxicillin 875 mg Oral tab 1 tab every 12 hours [Active]; benzonatate 200 mg oral cap 1 cap 3 times per day [Active]; fluticasone 50 mcg/actuation nasal spsn 2 sprays once daily [Active]; hydrochlorothiazide 12.5 mg Oral tab 1 tab once daily [Active]; Celebrex 200 mg Oral cap 1 cap 2 times per day [Active]; folic acid 1 mg Oral tab 1 tab once daily [Active]; lisinopril 10 mg Oral tab 1 tab once daily [Active]; gabapentin 300 mg oral cap 1 cap 3 times per day [Active]; Vitamin B-12 500 mcg Oral tab [Active]; - PMHx: 08:37 Hypertension; tw2 09:45 Atrial Fib; tw2 - Immunization history:: Adult Immunizations up to date. - Social history:: Smoking status: Patient uses tobacco products, smokes one pack cigarettes per day. ROS: 09:32 Constitutional: Negative for fever, chills, and weight loss, Eyes: Negative for injury, wendy pain, redness, and discharge, ENT: Negative for injury, pain, and discharge, Neck: Negative for injury, pain, and swelling, Cardiovascular: Negative for chest pain, palpitations, and edema, Abdomen/GI: Negative for abdominal pain, nausea, vomiting, diarrhea, and constipation, Back: Negative for injury and pain, : Negative for injury, bleeding, discharge, and swelling, Skin: Negative for injury, rash, and discoloration, Neuro: Negative for headache, weakness, numbness, tingling, and seizure, Psych: Negative for depression, anxiety, suicide ideation, homicidal ideation, and hallucinations, Allergy/Immunology: Negative for hives, rash, and allergies, Endocrine: Negative for neck swelling, polydipsia, polyuria, polyphagia, and marked weight changes, Hematologic/Lymphatic: Negative for swollen nodes, abnormal bleeding, and unusual bruising. 09:32 Respiratory: Positive for cough, orthopnea, shortness of breath. 09:32 MS/extremity: Positive for swelling, of the right leg and left leg. Exam: 09:32 Constitutional: This is a well developed, well nourished patient who is awake, alert, wendy and in no acute distress. Head/Face: Normocephalic, atraumatic. Eyes: Pupils equal round and reactive to light, extra-ocular motions intact. Lids and lashes normal. Conjunctiva and sclera are non-icteric and not injected. Cornea within normal limits. Periorbital areas with no swelling, redness, or edema. ENT: Nares patent. No nasal discharge, no septal abnormalities noted. Tympanic membranes are normal and external auditory canals are clear. Oropharynx with no redness, swelling, or masses, exudates, or evidence of obstruction, uvula midline. Mucous membranes moist. Neck: Trachea midline, no thyromegaly or masses palpated, and no cervical lymphadenopathy. Supple, full range of motion without nuchal rigidity, or vertebral point tenderness. No Meningismus. Chest/axilla: Normal chest wall appearance and motion. Nontender with no deformity. No lesions are appreciated. Cardiovascular: Regular rate and rhythm with a normal S1 and S2. No gallops, murmurs, or rubs. Normal PMI, no JVD. No pulse deficits. Abdomen/GI: Soft, non-tender, with normal bowel sounds. No distension or tympany. No guarding or rebound. No evidence of tenderness throughout. Back: No spinal tenderness. No costovertebral tenderness. Full range of motion. Male : Normal genitalia with no discharge or lesions. Skin: Warm, dry with normal turgor. Normal color with no rashes, no lesions, and no evidence of cellulitis. Neuro: Awake and alert, GCS 15, oriented to person, place, time, and situation. Cranial nerves II-XII grossly intact. Motor strength 5/5 in all extremities. Sensory grossly intact. Cerebellar exam normal. Normal gait. Psych: Awake, alert, with orientation to person, place and time. Behavior, mood, and affect are within normal limits. 09:32 Respiratory: the patient does not display signs of respiratory distress, Respirations: no acute changes, Breath sounds: rales, that are mild, are heard in the left posterior lower lobe, right posterior middle lobe and right posterior lower lobe, decreased breath sounds, rhonchi. Vital Signs: 08:39 BP 137 / 97; Pulse 103; Resp 21; Temp 97.4(TE); Pulse Ox 96% on R/A; Weight 86.18 kg; ss Height 5 ft. 8 in. (172.72 cm); Pain 0/10; 09:45 BP 140 / 96; Pulse 98; Resp 22; Pulse Ox 94% ; tw2 10:12 Pulse Ox 97% on 2 lpm NC; tw2 10:15 BP 143 / 98; Pulse 112; Resp 17; Pulse Ox 96% on R/A; tw2 11:12 BP 139 / 96; Pulse 95; Resp 17; Pulse Ox 95% on R/A; tw2 08:39 Body Mass Index 28.89 (86.18 kg, 172.72 cm) 09:45 pt placed on o2 via nc at this time, will continue to monitor. tw2 MDM: 08:42 Patient medically screened. [facility] 09:32 Data reviewed: vital signs, nurses notes, lab test result(s), EKG, radiologic studies, [facility] plain films. 06/14 08:44 Order name: Basic Metabolic Panel; Complete Time: 10:13 [facility] 06/14 08:44 Order name: BNP [facility] 06/14 08:44 Order name: CBC with Diff; Complete Time: 09:34 [facility] 06/14 08:44 Order name: Ckmb; Complete Time: 10:13 [facility] 06/14 08:44 Order name: CPK; Complete Time: 10:13 [facility] 06/14 08:44 Order name: LFT's; Complete Time: 10:13 [facility] 06/14 08:44 Order name: Magnesium; Complete Time: 10:13 06/14 08:44 Order name: PT-INR; Complete Time: 10:13 wendy 06/14 08:44 Order name: Ptt, Activated; Complete Time: 10:13 [facility] 06/14 08:44 Order name: Troponin (emerg Dept Use Only); Complete Time: 10:13 [facility] 06/14 08:44 Order name: Blood Culture Adult (2) 06/14 08:44 Order name: Lipase; Complete Time: 10:13 [facility] 06/14 08:44 Order name: Urine Culture 06/14 09:31 Order name: TSH 06/14 08:44 Order name: XRAY Chest (1 view) 06/14 08:44 Order name: EKG; Complete Time: 08:44 [facility] 06/14 08:44 Order name: Cardiac monitoring; Complete Time: 08:56 [facility] 06/14 08:44 Order name: EKG - Nurse/Tech; Complete Time: 08:56 [facility] 06/14 08:44 Order name: IV Saline Lock; Complete Time: 09:12 [facility] 06/14 08:44 Order name: Labs collected and sent; Complete Time: 09:12 [facility] 06/14 08:44 Order name: O2 Per Protocol; Complete Time: 08:56 [facility] 06/14 08:44 Order name: O2 Sat Monitoring; Complete Time: 08:56 [facility] 06/14 10:48 Order name: Urine Dipstick--Ancillary (enter results) mw2 Administered Medications: 09:11 Drug: NS 0.9% 1000 ml Route: IV; Rate: 75 ml/hr; Site: left antecubital; tw2 11:11 Follow up: Response: No adverse reaction; IV Status: Order to discontinue infusion tw2 09:52 Drug: Lasix 20 mg Route: IVP; Site: left antecubital; tw2 11:11 Follow up: Response: No adverse reaction tw2 09:53 Drug: Lopressor (metoprolol TARTRATE) 50 mg Route: PO; tw2 11:11 Follow up: Response: No adverse reaction tw2 Disposition: 04/19/18 10:56 Discharged to Home. Impression: Chronic obstructive pulmonary disease, unspecified, Chronic atrial fibrillation. - Condition is Stable. - Discharge Instructions: Chronic Obstructive Pulmonary Disease, Smoking Cessation. - Prescriptions for Spiriva with HandiHaler 18 mcg Inhalation capsule, w/inhalation device - inhale 1 capsule by INHALATION route once daily; 1 Cartridge. Xopenex HFA 45 mcg/actuation Inhalation HFA aerosol inhaler - inhale 2 puff by INHALATION route every 4 hours; 1 Cartridge. - Medication Reconciliation Form, Thank You Letter, Antibiotic Education, Prescription Opioid Use form. - Follow up: Gabriel Monsalve MD; When: 06/18/2017. Follow up: Apolinar Pierre MD; When: 1 week. - Problem is chronic. - Symptoms are resolved. Signatures: Dispatcher [employer] EDMS Peter Peacock MD MD cha Smirch, Shelby, RN RN ss Peter Luong PA PA cp Wise, Tara, RN RN tw2 Valencia French MD MD rp3 Corrections: (The following items were deleted from the chart) 09:39 09:31 EC Echo Doppler W/Color Flow+[id number] ordered. EDMS EDMS
[2017-06-14 09:42] LABS: Albumin 2.9 g/dL (3.2-5.5); Bilirubin Direct 1.9 mg/dL (0-0.2); Bilirubin Total 4.3 mg/dL (0.3-1.2); Magnesium 1.9 mg/dL (1.8-2.5); Protein, Total 6.9 g/dL (6.0-8.3)
[2017-06-14] MEDS ORDERED: FUROSEMIDE 20 MG/ 2ML VIAL ONE (09:47)
[2017-06-14] MEDS ORDERED: METOPROLOL TAR 50 MG TAB ONE (09:47)
--- NOTE | 2017-06-14 10:23 | RAD REPORT ---
EXAM DESCRIPTION: RAD - Chest Single View - 06/14/2017 9:20 am CLINICAL HISTORY: Cough SOB COMPARISON: 06/11/2017 FINDINGS: Portable technique limits examination quality. Right-sided pleural and parenchymal opacity appears unchanged. Trace left pleural fluid. Mild interst itial pulmonary edema is present. The heart is mildly enlarged in size with sternotomy wires present. No displaced fractures. IMPRESSION: No significant change in the appearance of the chest since 06/11/2017.
[2017-06-14 11:20] VITALS: TEMP 97.4
[2017-06-14 11:25] VITALS: BP 139/96; O2SAT 95
[2017-06-14 11:47] LABS: Urine Blood 2+ (NEG); Urine Glucose NEGATIVE (NEG); Urine Protein 2+ (NEG); Urine Specific Gravity 1.025 (1.005-1.030)
== END 2017-06-14 11:14 | disposition home or self-care (01) ==
LOC: ER 08:26 → ERHOLD 09:41 → UNDOADMIN 09:41 → ER 11:14
DX: J44.9 Chronic obstructive pulmonary disease, unspecified (principal); I48.2 Chronic atrial fibrillation; I10 Essential (primary) hypertension; F17.210 Nicotine dependence, cigarettes, uncomplicated; Z79.01 Long term (current) use of anticoagulants
CPT/HCPCS: 36415; 71045; 80048; 80076; 81003; 82550; 82553; 83690; 83735; 83880; 84443; 84484; 85025; 85610; 85730; 87040; 87086; 87088; 93005; 96361; 96374; 99285; J1940

== ENCOUNTER 2017-12-08 01:13 | Emergency (ER) | payer BC ==
[2017-12-08] MEDS ORDERED: KETOROLAC 30 MG/ML INJ ONE (01:40)
[2017-12-08] MEDS ORDERED: DIAZEPAM 10 MG/2 ML INJ SYRINGE ONE (01:42)
--- NOTE | 2017-12-08 02:30 | ER ---
Nurse's Notes [facility] Name: Tex Vergara Age: 62 yrs Sex: Male : 1955 Arrival Date: 12/08/2017 Time: 01:14 Bed 6 Private MD: Diagnosis: Sciatica, right side Presentation: 12/08 01:16 Presenting complaint: EMS states: they were toned out for report of pt having low back bb pain radiating down right leg pt states he had appointment on Sunday to have his back injected pt sees pain management and takes hydrocodone but pain got worse and he could not take it. Transition of care: patient was not received from another setting of care. Onset of symptoms was December 08, 2017. Risk Assessment: Do you want to hurt yourself or someone else? Patient reports no desire to harm self or others. Initial Sepsis Screen: Does the patient meet any 2 criteria? No. Patient's initial sepsis screen is negative. Does the patient have a suspected source of infection? No. Patient's initial sepsis screen is negative. Care prior to arrival: None. 01:16 Method Of Arrival: EMS: [facility] bb 01:16 Acuity: SUMMER 4 bb Historical: - Allergies: 01:24 No Known Allergies; bb - Home Meds: 01:24 Eliquis 5 mg Oral tab 1 tab 2 times per day [Active]; folic acid 1 mg Oral tab 1 tab bb once daily [Active]; gabapentin 300 mg Oral cap 1 cap 3 times per day [Active]; metoprolol tartrate 100 mg oral tab 1 tab 2 times per day [Active]; diltiazem HCl 120 mg Oral cpER 1 cap once daily [Active]; Vitamin B-12 500 mcg Oral tab [Active]; Multiple Vitamins oral oral [Active]; furosemide 40 mg Oral tab 1 tab 2 times per day [Active]; potassium chloride 20 mEq Oral TbER 1 tab once daily [Active]; hydrocodone-acetaminophen 7.5-325 mg Oral tab 1 tab every 4-6 hours [Active]; - PMHx: 01:24 Atrial Fib; Hypertension; bb 01:24 COPD; bb - PSHx: 01:24 CABG; bb - Immunization history:: Adult Immunizations unknown. - Social history:: Smoking status: Patient uses tobacco products, smokes one-half pack cigarettes per day, Patient/guardian denies using alcohol, street drugs, pt recently stopped drinking ETOH. - Ebola Screening: : No symptoms or risks identified at this time. - Family history:: not pertinent. - Hospitalizations: : No recent hospitalization is reported. Screenin:18 Abuse screen: Denies threats or abuse. Nutritional screening: No deficits noted. jd3 Tuberculosis screening: No symptoms or risk factors identified. Fall Risk Ambulatory Aid- None/Bed Rest/Nurse Assist (0 pts). Gait- Weak (10 pts.). Mental Status- Oriented to own ability (0 pts). Total Jason Fall Scale indicates No Risk (0-24 pts). Assessment: 01:15 General: Appears in no apparent distress. uncomfortable, Behavior is calm, cooperative, jd3 appropriate for age. Pain: Complains of pain in back Pain radiates to right leg Pain currently is 8 out of 10 on a pain scale. Quality of pain is described as sharp, shooting. Neuro: Level of Consciousness is awake, alert, obeys commands, Oriented to person, place, time, situation, Appropriate for age. Cardiovascular: Denies chest pain, Capillary refill < 3 seconds Patient's skin is warm and dry. Respiratory: Airway is patent Respiratory effort is even, unlabored, Respiratory pattern is regular, symmetrical, Denies shortness of breath. GI: Abdomen is round non-distended, Patient currently denies abdominal pain, diarrhea, nausea, vomiting. : No signs and/or symptoms were reported regarding the genitourinary system. EENT: No signs and/or symptoms were reported regarding the EENT system. Derm: Skin is intact, Skin is dry, Skin is normal, Skin temperature is warm. Musculoskeletal: Circulation, motion, and sensation intact. Range of motion: limited in right hip. 02:11 Reassessment: Patient appears in no apparent distress at this time. Patient and/or jd3 family updated on plan of care and expected duration. Pain level reassessed. Patient is alert, oriented x 3, equal unlabored respirations, skin warm/dry/pink. Patient states feeling better. Vital Signs: 01:24 BP 115 / 64; Pulse 86; Resp 16 S; Temp 97.9(O); Pulse Ox 97% on R/A; Weight 81.65 kg bb (R); Height 5 ft. 8 in. (172.72 cm); Pain 8/10; 02:11 BP 108 / 60; Pulse 77; Resp 16 S; Pulse Ox 97% on R/A; jd3 02:31 BP 123 / 84; Pulse 82; Resp 16; Pulse Ox 100% on R/A; ak1 01:24 Body Mass Index 27.37 (81.65 kg, 172.72 cm) ED Course: 01:14 Patient arrived in ED. jd3 01:17 Patient has correct armband on for positive identification. Bed in low position. Call jd3 light in reach. Side rails up X2. 01:18 Arm band placed on. jd3 01:19 Triage completed. 01:29 Raffi Tran MD is Attending Physician. ga 01:29 Peter Luong PA is PHCP. amarjit 01:29 Raheem Castillo RN is Primary Nurse. jd3 02:31 No provider procedures requiring assistance completed. Patient did not have IV access ak1 during this emergency room visit. Administered Medications: 01:43 Drug: TORadol 60 mg Route: IM; Site: left deltoid; jd3 02:14 Follow up: Response: No adverse reaction jd3 01:44 Drug: Valium 5 mg Route: IM; Site: right deltoid; jd3 02:14 Follow up: Response: No adverse reaction jd3 Outcome: 02:30 Discharge ordered by . 02:31 Condition: stable ak1 02:34 Discharged to home via wheelchair, with family. ak1 02:34 Discharge instructions given to patient, family, Instructed on discharge instructions, follow up and referral plans. no drinking with medication, no driving heavy equipment, medication usage, Demonstrated understanding of instructions, follow-up care, medications, Prescriptions given X 1. 02:44 Patient left the ED. jd3 Signatures: Anyi Petersen RN RN Kierra Castorena RN RN ak1 Peter Luong PA PA cp Appiah, William, MD MD wa Davies, Jonathon, RN RN jd3 Corrections: (The following items were deleted from the chart) 02:15 02:11 Reassessment: Patient appears in no apparent distress at this time. Patient jd3 and/or family updated on plan of care and expected duration. Pain level reassessed. Patient is alert, oriented x 3, equal unlabored respirations, skin warm/dry/pink. jd3
--- NOTE | 2017-12-08 02:30 | EDPHYS ---
Physician Documentation [facility] Name: Tex Vergara Age: 62 yrs Sex: Male : 1955 Arrival Date: 12/08/2017 Time: 01:14 Bed 6 Private MD: ED Physician Raffi Tran HPI: 12/08 02:24 This 62 yrs old Male presents to ER via EMS with complaints of R lower back wa pain that radiates down R leg. 02:24 The patient presents with pain that is chronic, with no known mechanism of injury. The wa symptoms are located in the right lower back. The pain radiates to the right leg. The problem was sustained from a chronic condition. Onset: The symptoms/episode began/occurred 6 month(s) ago, under pain management. states worse tonight. has appt to get "shots" in the back within the next 2 days. denies incontinence or fever. Modifying factors: The patient symptoms are alleviated by nothing, the patient symptoms are aggravated by nothing. Associated signs and symptoms: Pertinent negatives: abdominal pain, fever, nausea, numbness, tingling, vomiting, weakness. Severity of symptoms: At their worst the symptoms were moderate, in the emergency department the symptoms are actually worse. The patient has experienced similar episodes in the past. The patient has not recently seen a physician. Historical: - Allergies: 01:24 No Known Allergies; bb - Home Meds: 01:24 Eliquis 5 mg Oral tab 1 tab 2 times per day [Active]; folic acid 1 mg Oral tab 1 tab bb once daily [Active]; gabapentin 300 mg Oral cap 1 cap 3 times per day [Active]; metoprolol tartrate 100 mg oral tab 1 tab 2 times per day [Active]; diltiazem HCl 120 mg Oral cpER 1 cap once daily [Active]; Vitamin B-12 500 mcg Oral tab [Active]; Multiple Vitamins oral oral [Active]; furosemide 40 mg Oral tab 1 tab 2 times per day [Active]; potassium chloride 20 mEq Oral TbER 1 tab once daily [Active]; hydrocodone-acetaminophen 7.5-325 mg Oral tab 1 tab every 4-6 hours [Active]; - PMHx: 01:24 Atrial Fib; Hypertension; bb 01:24 COPD; bb - PSHx: 01:24 CABG; bb - Immunization history:: Adult Immunizations unknown. - Social history:: Smoking status: Patient uses tobacco products, smokes one-half pack cigarettes per day, Patient/guardian denies using alcohol, street drugs, pt recently stopped drinking ETOH. - Ebola Screening: : No symptoms or risks identified at this time. - Family history:: not pertinent. - Hospitalizations: : No recent hospitalization is reported. ROS: 02:27 Constitutional: Negative for fever, chills, and weight loss, Eyes: Negative for injury, wa pain, redness, and discharge, ENT: Negative for injury, pain, and discharge, Neck: Negative for injury, pain, and swelling, Cardiovascular: Negative for chest pain, palpitations, and edema, Respiratory: Negative for shortness of breath, cough, wheezing, and pleuritic chest pain, Abdomen/GI: Negative for abdominal pain, nausea, vomiting, diarrhea, and constipation, : Negative for injury, bleeding, discharge, and swelling, MS/Extremity: Negative for injury and deformity, Skin: Negative for injury, rash, and discoloration. Exam: 02:27 Constitutional: This is a well developed, well nourished patient who is awake, alert, wa and in no acute distress. Head/Face: Normocephalic, atraumatic. Eyes: Pupils equal round and reactive to light, extra-ocular motions intact. Lids and lashes normal. Conjunctiva and sclera are non-icteric and not injected. Cornea within normal limits. Periorbital areas with no swelling, redness, or edema. ENT: Nares patent. No nasal discharge, no septal abnormalities noted. Tympanic membranes are normal and external auditory canals are clear. Oropharynx with no redness, swelling, or masses, exudates, or evidence of obstruction, uvula midline. Mucous membranes moist. Neck: Trachea midline, no thyromegaly or masses palpated, and no cervical lymphadenopathy. Supple, full range of motion without nuchal rigidity, or vertebral point tenderness. No Meningismus. Chest/axilla: Normal chest wall appearance and motion. Nontender with no deformity. No lesions are appreciated. Cardiovascular: Regular rate and rhythm with a normal S1 and S2. No gallops, murmurs, or rubs. Normal PMI, no JVD. No pulse deficits. Respiratory: Lungs have equal breath sounds bilaterally, clear to auscultation and percussion. No rales, rhonchi or wheezes noted. No increased work of breathing, no retractions or nasal flaring. Abdomen/GI: Soft, non-tender, with normal bowel sounds. No distension or tympany. No guarding or rebound. No evidence of tenderness throughout. Back: No spinal tenderness. No costovertebral tenderness. Full range of motion. Skin: Warm, dry with normal turgor. Normal color with no rashes, no lesions, and no evidence of cellulitis. MS/ Extremity: Pulses equal, no cyanosis. Neurovascular intact. Full, normal range of motion. Psych: Awake, alert, with orientation to person, place and time. Behavior, mood, and affect are within normal limits. 02:27 Neuro: Mentation: is normal, Cranial nerves: grossly normal, Motor: is normal, noted positive R LE SLR. Vital Signs: 01:24 BP 115 / 64; Pulse 86; Resp 16 S; Temp 97.9(O); Pulse Ox 97% on R/A; Weight 81.65 kg bb (R); Height 5 ft. 8 in. (172.72 cm); Pain 8/10; 02:11 BP 108 / 60; Pulse 77; Resp 16 S; Pulse Ox 97% on R/A; jd3 02:31 BP 123 / 84; Pulse 82; Resp 16; Pulse Ox 100% on R/A; ak1 01:24 Body Mass Index 27.37 (81.65 kg, 172.72 cm) MDM: 01:29 Patient medically screened. wa 02:28 Differential diagnosis: sciatica, Herniated disc spinal stenosis., pt already had MRI wa and under pain management. no worrisome acute factors assoc with his pain. will treat symptoms and reassess. Data reviewed: vital signs, nurses notes. Administered Medications: 01:43 Drug: TORadol 60 mg Route: IM; Site: left deltoid; jd3 02:14 Follow up: Response: No adverse reaction jd3 01:44 Drug: Valium 5 mg Route: IM; Site: right deltoid; jd3 02:14 Follow up: Response: No adverse reaction jd3 Disposition: 12/08/17 02:30 Discharged to Home. Impression: Sciatica, right side. - Condition is Stable. - Discharge Instructions: Sciatica, [id number]. - Prescriptions for Valium 5 mg Oral Tablet - take 1 tablet by ORAL route At bedtime As needed; 6 tablet. - Medication Reconciliation Form, Thank You Letter, Antibiotic Education, Prescription Opioid Use form. - Follow up: Private Physician; When: 2 - 3 days; Reason: Recheck today's complaints. - Problem is new. - Symptoms have improved. - Notes: continue your medication as prescribed. follow up with your doctor as discussed for further evaluation Signatures: Anyi Petersen RN RN bb Raffi Tran MD MD wa Davies, Jonathon, RN RN jd3 Corrections: (The following items were deleted from the chart) 02:44 02:30 12/08/2017 02:30 Discharged to Home. Impression: Sciatica, right side. Condition jd3 is Stable. Forms are Medication Reconciliation Form, Thank You Letter, Antibiotic Education, Prescription Opioid Use. Follow up: Private Physician; When: 2 - 3 days; Reason: Recheck today's complaints. Problem is new. Symptoms have improved. heriberto
[2017-12-08 02:49] VITALS: TEMP 97.9
[2017-12-08 02:51] VITALS: BP 123/84; O2SAT 100
== END 2017-12-08 02:44 | disposition home or self-care (01) ==
LOC: ER 01:13
DX: M54.31 Sciatica, right side (principal); I10 Essential (primary) hypertension; J44.9 Chronic obstructive pulmonary disease, unspecified; I48.91 Unspecified atrial fibrillation; Z95.1 Presence of aortocoronary bypass graft
CPT/HCPCS: 96372; 99283; J3360

== ENCOUNTER 2018-05-16 06:21 | Day surgery (SDC) | payer BC ==
[2018-05-15 12:06] LABS: Absolute Lymphocytes (CBC) 1.8 K/uL (0.7-4.9); Absolute Neutrophil 3.5 K/uL (1.8-8.0); Basophils % 1.2 % (0-1.3); Eosinophils % 4.7 % (0-4.4); Hematocrit 45.4 % (39.6-49.0); Lymphocytes % 26.3 % (15.3-44.8); MPV 8.8 fL (7.6-11.3); RBC Red Blood Cell Count 5.97 M/uL (4.33-5.43)
[2018-05-15 12:08] LABS: Protime INR 1.35
[2018-05-15 12:14] LABS: Potassium 3.6 mmol/L (3.5-5.1)
--- NOTE | 2018-05-15 13:00 | RAD REPORT ---
EXAM DESCRIPTION: RAD - Chest Pa And Lat (2 Views) - 05/15/2018 12:48 pm CLINICAL HISTORY: preop Chest pain. COMPARISON: Chest Pa And Lat (2 Views) dated 09/12/2017; Chest Single View dated 06/14/2017; Chest Sin gle View dated 06/11/2017 FINDINGS: A moderate right pleural effusion is seen, larger than on the 2018 comparative study. A sm all left pleural effusion is present. Mild interstitial pulmonary edema seen. The heart is mildly enl arged in size with aortic atherosclerosis. Sternotomy wires present. IMPRESSION: Mild CHF with a small left and a moderate right pleural effusion.
--- OUTSIDE RECORDS SUMMARY | 2018-05-16 06:23 | XMS REPORT ---
:1955 [facility] Address [address] [place] [address] [address] Care Team Providers Name Role Phone Unavailable Unavailable Unavailable Problems This patient has no known problems. Allergies, Adverse Reactions, Alerts This patient has no known allergies or adverse reactions. Medications This patient has no known medications.
[2018-05-16] MEDS ORDERED: NA CHLORIDE 0.9% 500 ML ONE (07:12)
[2018-05-16] MEDS ORDERED: MIDAZOLAM HCL 5 MG/5 ML INJ ONE ×2 (07:40→08:06)
[2018-05-16 10:01] VITALS: BP 129/57; O2SAT 93
[2018-05-16 10:45] VITALS: TEMP 97.3
--- NOTE | 2018-05-16 16:42 | OP ---
Surgeon: Gabriel Monsalve MD Disc Inspector: Annamarie Gao. Indications For Procedure: This is a patient of 62, has a history of hypertension, congestive heart failure, neuropathy, and atrial fibrillation and coronary artery disease. His atrial fibrillation monae s been symptomatic on beta-blockers, Cardizem, and Eliquis, rate in the 110-130. Admitted today for cardioversion. Description Of Procedure: He was given 7 mg of Versed for sedation. One shock of 200 joules convert ed him to normal sinus rhythm. There were no blood loss. No complications. Final Diagnosis: Atrial fibrillation, status post successful cardioversion to sinus rhythm. Plan: We will continue his beta-scarlett, calcium scarlett, and Eliquis. He will come see me in the o ffice in the next 2-4 weeks. He will be going home today. Total conscious sedation was 30 minutes. LAY/ALICE Voice ID: [id number] Report ID: [id number]
--- NOTE | 2018-05-16 17:08 | EKG ---
Test Date: 2018-05-16 Test Time: 08:13:28 Professor Of Business Administration: ALLISON MEASUREMENT RESULTS: Intervals: Rate: 57 GA: 198 QRSD: 118 QT: 496 QTc: 482 [place]: P: 84 GA: 198 QRS: 11 T: 210 INTERPRETIVE STATEMENTS: Sinus bradycardia Left ventricular hypertrophy with QRS widening and repolarization abnormality Prolonged QT Abnormal ECG Compared to ECG 06/14/2017 08:52:12 Atrial fibrillation no longer present Electronically Signed On 05-16-18 17:07:32 CDT by Ricardo Garcia
== END 2018-05-16 10:45 | disposition home or self-care (01) ==
LOC: CCL 06:21
DX: I48.91 Unspecified atrial fibrillation (principal); I25.10 Atherosclerotic heart disease of native coronary artery without angina pectoris; I11.0 Hypertensive heart disease with heart failure; I50.30 Unspecified diastolic (congestive) heart failure; G62.9 Polyneuropathy, unspecified; Z79.01 Long term (current) use of anticoagulants; Z79.899 Other long term (current) drug therapy
CPT/HCPCS: 36415; 71046; 80048; 85025; 85610; 85730; 92960; 93005; J2250

== ENCOUNTER 2018-12-23 22:56 | Emergency (ER) | payer BC, SELFPAY ==
--- NOTE | 2018-12-24 00:08 | ER ---
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 pressure dressing applied. Transition of care: patient was not received from another setting of care. Onset of symptoms was December 23, 2018. Risk Assessment: Do you want to hurt yourself or someone else? Patient reports no desire to harm self or others. Initial Sepsis Screen: Does the patient meet any 2 criteria? No. Patient's initial sepsis screen is negative. Does the patient have a suspected source of infection? No. Patient's initial sepsis screen is negative. Care prior to arrival: None. 23:04 Method Of Arrival: EMS: [facility] ak1 23:04 Acuity: SUMMER 4 ak1 Triage Assessment: 23:06 General: Appears in no apparent distress. Behavior is calm, cooperative. Pain: Denies ak1 pain. EENT: No signs and/or symptoms were reported regarding the EENT system. Neuro: No deficits noted. Cardiovascular: No deficits noted. Respiratory: No deficits noted. GI: No signs and/or symptoms were reported involving the gastrointestinal system. : No signs and/or symptoms were reported regarding the genitourinary system. Derm: Wound noted right leg Other: bleeding controlled with pressure bandage. Musculoskeletal: No signs and/or symptoms reported regarding the musculoskeletal system. Historical: - Allergies: 23:06 No Known Allergies; ak1 - Home Meds: 23:06 diltiazem HCl 120 mg Oral cpER 1 cap once daily [Active]; Eliquis 5 mg Oral tab 1 tab 2 ak1 times per day [Active]; folic acid 1 mg Oral tab 1 tab once daily [Active]; furosemide 40 mg Oral tab 1 tab 2 times per day [Active]; gabapentin 300 mg Oral cap 1 cap 3 times per day [Active]; hydrocodone-acetaminophen 7.5-325 mg Oral tab 1 tab every 4-6 hours [Active]; metoprolol tartrate 100 mg Oral tab 1 tab 2 times per day [Active]; Multiple Vitamins Oral [Active]; potassium chloride 20 mEq Oral TbER 1 tab once daily [Active]; Vitamin B-12 500 mcg Oral tab [Active]; - PMHx: 23:06 Atrial Fib; Hypertension; COPD; ak1 - PSHx: 23:06 CABG; ak1 - Immunization history:: Adult Immunizations unknown. - Social history:: Smoking status: Patient uses tobacco products, smokes one-half pack cigarettes per day. - Ebola Screening: : No symptoms or risks identified at this time. Screenin:07 Abuse screen: Denies threats or abuse. Denies injuries from another. Nutritional ak1 screening: No deficits noted. Tuberculosis screening: No symptoms or risk factors identified. Fall Risk None identified. Assessment: 23:08 Reassessment: Patient appears in no apparent distress at this time. No changes from ak1 previously documented assessment. pt informed by Dr. Hooker of the wait for 30 minuets with pressure dressing to stop bleeding. will reassess in 30 minuets. 12/24 00:00 Reassessment: Patient appears in no apparent distress at this time. bleeding has ak1 stopped, pressure dressing removed and bandaid applied. Dr. Hooker notified. Patient states symptoms have improved. Vital Signs: 12/23 23:03 BP 118 / 72; Pulse 89; Resp 18; Temp 97.9; Pulse Ox 97% on R/A; Weight 86.18 kg (R); ak1 Height 5 ft. 9 in. (175.26 cm) (R); Pain 0/10; 23:27 BP 115 / 71; Pulse 84; Resp 18; Pulse Ox 96% ; ak1 12/24 00:01 BP 118 / 68; Pulse 79; Resp 16; Pulse Ox 96% on R/A; ak1 12/23 23:03 Body Mass Index 28.06 (86.18 kg, 175.26 cm) ak1 ED Course: 12/23 23:02 Patient arrived in ED. ak1 23:03 Benito Hooker MD is Attending Physician. tw4 23:03 Arm band placed on Patient placed in an exam room, on a stretcher, on pulse oximetry, ak1 Patient notified of wait time. 23:05 Triage completed. ak1 23:07 Patient has correct armband on for positive identification. Bed in low position. Call ak light in reach. Side rails up X 1. Side rails up X2. Pulse ox on. NIBP on. Door closed. Lights dimmed. Warm blanket given. 23:09 Kierra Rodriguez, RN is Primary Nurse. ak 12/24 00:23 No provider procedures requiring assistance completed. Patient did not have IV access [facility] during this emergency room visit. Administered Medications: No medications were administered Outcome: 00:06 Discharge ordered by . tw4 00:23 Discharged to home ambulatory, pt went to ER6 to sit with his who is also in the [facility] ER. 00:23 Condition: improved 00:23 Discharge instructions given to patient, Instructed on discharge instructions, follow up and referral plans. Demonstrated understanding of instructions, follow-up care. 00:24 Patient left the ED. [facility] Signatures: Kierra Rodriguez, RN RN [facility] Benito Hooker, MD [place]ER[place] tw4
--- NOTE | 2018-12-24 00:25 | EDPHYS ---
Physician Documentation [facility] Name: Tex Vergara Age: 63 yrs Sex: Male : 1955 Arrival Date: 12/23/2018 Time: 23:02 Bed 7 Private MD: ED Physician Benito Hooker HPI: 12/24 00:23 This 63 yrs old Male presents to ER via EMS with complaints of varicose vein tw4 bleeding. 00:23 The patient presents with an injury. The complaints affect the right leija. Context: The tw4 problem was sustained at home, resulted from an unknown cause. Onset: The symptoms/episode began/occurred just prior to arrival. Modifying factors: The symptoms are alleviated by nothing. the symptoms are aggravated by nothing. Treatment prior to arrival includes: laura wrap. The patient has not experienced similar symptoms in the past. Historical: - Allergies: 12/23 23:06 No Known Allergies; ak1 - Home Meds: 23:06 diltiazem HCl 120 mg Oral cpER 1 cap once daily [Active]; Eliquis 5 mg Oral tab 1 tab 2 ak1 times per day [Active]; folic acid 1 mg Oral tab 1 tab once daily [Active]; furosemide 40 mg Oral tab 1 tab 2 times per day [Active]; gabapentin 300 mg Oral cap 1 cap 3 times per day [Active]; hydrocodone-acetaminophen 7.5-325 mg Oral tab 1 tab every 4-6 hours [Active]; metoprolol tartrate 100 mg Oral tab 1 tab 2 times per day [Active]; Multiple Vitamins Oral [Active]; potassium chloride 20 mEq Oral TbER 1 tab once daily [Active]; Vitamin B-12 500 mcg Oral tab [Active]; - PMHx: 23:06 Atrial Fib; Hypertension; COPD; ak1 - PSHx: 23:06 CABG; ak1 - Immunization history:: Adult Immunizations unknown. - Social history:: Smoking status: Patient uses tobacco products, smokes one-half pack cigarettes per day. - Ebola Screening: : No symptoms or risks identified at this time. ROS: 12/24 00:23 Constitutional: Negative for fever, chills, and weight loss, Eyes: Negative for injury, tw4 pain, redness, and discharge, Cardiovascular: Negative for chest pain, palpitations, and edema, Respiratory: Negative for shortness of breath, cough, wheezing, and pleuritic chest pain, Abdomen/GI: Negative for abdominal pain, nausea, vomiting, diarrhea, and constipation, Skin: Negative for injury, rash, and discoloration, Neuro: Negative for headache, weakness, numbness, tingling, and seizure. MS/extremity: Positive for injury or acute deformity, abrasion, Negative for bite, contusion, deformity, ecchymosis, erythema, laceration, puncture, rash. Exam: 00:23 Constitutional: This is a well developed, well nourished patient who is awake, alert, tw4 and in no acute distress. Head/Face: Normocephalic, atraumatic. Chest/axilla: Normal chest wall appearance and motion. Nontender with no deformity. No lesions are appreciated. Cardiovascular: Regular rate and rhythm with a normal S1 and S2. No gallops, murmurs, or rubs. Normal PMI, no JVD. No pulse deficits. Respiratory: Lungs have equal breath sounds bilaterally, clear to auscultation and percussion. No rales, rhonchi or wheezes noted. No increased work of breathing, no retractions or nasal flaring. Abdomen/GI: Soft, non-tender, with normal bowel sounds. No distension or tympany. No guarding or rebound. No evidence of tenderness throughout. Back: No spinal tenderness. No costovertebral tenderness. Full range of motion. Neuro: Awake and alert, GCS 15, oriented to person, place, time, and situation. Cranial nerves II-XII grossly intact. Motor strength 5/5 in all extremities. Sensory grossly intact. Cerebellar exam normal. Normal gait. 00:23 Musculoskeletal/extremity: Extremities: noted in the right leija: abrasion, small amount of bleeding from varicose vein, ROM: no acute changes. Vital Signs: 12/23 23:03 BP 118 / 72; Pulse 89; Resp 18; Temp 97.9; Pulse Ox 97% on R/A; Weight 86.18 kg (R); ak1 Height 5 ft. 9 in. (175.26 cm) (R); Pain 0/10; 23:27 BP 115 / 71; Pulse 84; Resp 18; Pulse Ox 96% ; ak1 12/24 00:01 BP 118 / 68; Pulse 79; Resp 16; Pulse Ox 96% on R/A; ak1 12/23 23:03 Body Mass Index 28.06 (86.18 kg, 175.26 cm) ak1 MDM: 12/23 23:03 Patient medically screened. tw4 12/24 00:23 Differential diagnosis: dislocation, closed fracture. Data reviewed: vital signs, tw4 nurses notes. Data interpreted: Pulse oximetry: Interpretation: normal. Counseling: I had a detailed discussion with the patient and/or guardian regarding: the historical points, exam findings, and any diagnostic results supporting the discharge/admit diagnosis. 00:25 Special discussion: I discussed with the patient/guardian in detail that at this point tw4 there is no indication for admission to the hospital. It is understood, however, that if the symptoms persist or worsen the patient needs to return immediately for re-evaluation. ED course: no active bleeding noted after pressure dressing applied and removed. Administered Medications: No medications were administered Disposition: 12/24/18 00:06 Discharged to Home. 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 - Condition is Stable. - Discharge Instructions: Varicose Veins, Bleeding Varicose Veins. - Medication Reconciliation Form, Thank You Letter, Antibiotic Education, Prescription Opioid Use form. - Follow up: Private Physician; When: Upon discharge from the Emergency Department; Reason: Recheck today's complaints, Continuance of care. - Problem is new. - Symptoms have improved. Signatures: Kierra Rodriguez RN RN ak1 Benito Hooker MD MD tw4 Corrections: (The following items were deleted from the chart) 00:24 00:06 12/24/2018 00:06 Discharged to Home. Impression: Varicose veins of right lower ak1 extremities with other complications. Condition is Stable. Forms are Medication Reconciliation Form, Thank You Letter, Antibiotic Education, Prescription Opioid Use. Follow up: Private Physician; When: Upon discharge from the Emergency Department; Reason: Recheck today's complaints, Continuance of care. Problem is new. Symptoms have improved. tw4
[2018-12-24 00:48] VITALS: TEMP 97.9
[2018-12-24 00:49] VITALS: O2SAT 96
[2018-12-24 00:50] VITALS: BP 118/68
== END 2018-12-24 00:24 | disposition home or self-care (01) ==
LOC: ER 22:56
DX: I83.891 Varicose veins of right lower extremity with other complications (principal); I10 Essential (primary) hypertension; F17.210 Nicotine dependence, cigarettes, uncomplicated
CPT/HCPCS: 99283

== ENCOUNTER 2019-01-21 12:08 | Emergency (ER) | payer SELFPAY ==
--- OUTSIDE RECORDS SUMMARY | 2019-01-21 12:10 | XMS REPORT ---
:1955 [facility] Address [address] [place] [address] Dr. Neely[address] [place] [id number] Care Team Providers Name Role Phone Unavailable Unavailable Unavailable Problems This patient has no known problems. Allergies, Adverse Reactions, Alerts This patient has no known allergies or adverse reactions. Medications This patient has no known medications.
--- NOTE | 2019-01-21 12:27 | RAD REPORT ---
EXAM DESCRIPTION: CT - Ct Stroke Brain Wo Cont - 01/21/2019 12:21 pm CLINICAL HISTORY: APHASIA CVA symptomology COMPARISON: No comparisons TECHNIQUE: All CT scans are performed using dose optimization technique as appropriate and may inclu de automated exposure control or mA/KV adjustment according to patient size. FINDINGS: No intracranial hemorrhage, hydrocephalus or extra-axial fluid collection.Small area of gl iosis is noted right frontal region.No areas of brain edema or evidence of midline shift. The paranasal sinuses and mastoids are clear. The calvarium is intact. IMPRESSION: No acute intracranial abnormality. If there is continued clinical concern for CVA, MR i maging of the brain would be recommended. The findings were discussed with Dr. Pedro in the emergency room On 01/21/2019 at 12:19 p.m. by tel ephone.
[2019-01-21 12:33] LABS: Absolute Lymphocytes (CBC) 1.7 K/uL (0.7-4.9); Basophils % 1.3 % (0-1.3); Hematocrit 40.6 % (39.6-49.0); Lymphocytes % 21.4 % (15.3-44.8); MPV 8.1 fL (7.6-11.3); RBC Red Blood Cell Count 5.23 M/uL (4.33-5.43)
[2019-01-21 12:43] LABS: Protime INR 1.2
[2019-01-21 13:02] LABS: ALT/SGPT 43 U/L (12-78); AST/SGOT 31 U/L (15-37); Albumin 2.6 g/dL (3.4-5.0); Alkaline Phosphatase 229 U/L (45-117); BUN Blood Urea Nitrogen 11 mg/dL (7-18); Bicarbonate 35 mmol/L (21-32); Bilirubin Direct 0.9 mg/dL (0-0.2); Bilirubin Total 1.5 mg/dL (0.2-1.0); Glucose Level 87 mg/dL (74-106); Magnesium 1.9 mg/dL (1.8-2.4); Protein, Total 7.5 g/dL (6.4-8.2); Sodium Level 136 mmol/L (136-145); Troponin (Emerg Dept Use Only) < 0.02 ng/mL (0.0-0.045)
--- NOTE | 2019-01-21 13:16 | RAD REPORT ---
EXAM DESCRIPTION: RAD - Chest Single View - 01/21/2019 1:07 pm CLINICAL HISTORY: cva Chest pain. COMPARISON: Chest Pa And Lat (2 Views) dated 05/15/2018; Chest Pa And Lat (2 Views) dated 09/12/2017; Chest Single View dated 06/14/2017; Chest Single View dated 06/11/2017 FINDINGS: Portable technique limits examination quality. Small left and a moderate right pleural effusion is noted. Mild interstitial pulmonary edema seen. Th e heart is moderately enlarged with sternotomy wires present. No displaced fractures.
--- NOTE | 2019-01-21 13:23 | RAD REPORT ---
EXAM DESCRIPTION: CT - Head angio - 01/21/2019 1:13 pm CLINICAL HISTORY: cva Headache, CVA symptomology COMPARISON: Ct Stroke Brain Wo Cont dated 01/21/2019; Chest Pa And Lat (2 Views) dated 05/15/2018 TECHNIQUE: CT angiography of the head was performed with MIPs. All CT scans are performed using dose optimization technique as appropriate and may include automated exposure control or mA/KV adjustment according to patient size. FINDINGS: No evidence of aneurysm is detected. No flow-limiting stenosis or vascular malformation id entified. Antegrade flow is seen in the vertebral arteries. The vertebral arteries are codominant. The visualized dural venous sinuses are patent. IMPRESSION: No significant flow abnormality is detected.
--- NOTE | 2019-01-21 13:31 | RAD REPORT ---
EXAM DESCRIPTION: CT - Neck Angio - 01/21/2019 1:17 pm CLINICAL HISTORY: r/o large vessel occlusion CVA symptomology COMPARISON: No comparisons TECHNIQUE: CT angiography of the neck vessels was performed with MIPs. All CT scans are performed using dose optimization technique as appropriate and may include automated exposure control or mA/KV adjustment according to patient size. FINDINGS: A left aortic arch is identified with normal three vessel configuration of the great vesse ls. No significant flow abnormality is seen of the common carotid bilaterally. Heavy mixed plaquing is seen involving the proximal right internal carotid artery. There is evidence of significant stenosis of the right carotid bulb estimated at 90-95% based on NASCET criteria. Moderate hard plaquing is seen proximal left internal carotid artery. Stenosis is estimated at less t edward 50% involving the left carotid bulb. Normal flow is seen within both vertebral arteries. Bilateral pleural effusions noted. IMPRESSION: Significant stenosis (greater than 90%) is suspected involving the right carotid bulb re lated to prominent mixed plaquing.
--- NOTE | 2019-01-21 14:12 | ER ---
Nurse's Notes [facility] Name: Tex Vergara Age: 63 yrs Sex: Male : 1955 Arrival Date: 01/21/2019 Time: 12:09 Bed 7 Private MD: Diagnosis: Cerebral infarction Presentation: 01/21 12:33 Presenting complaint: Patient states: Woke up feeling completely normal, on the way to [facility] work and stopped at the store and was fumbling with trying to get his wallet out, didn't feel right and symptoms worsened. Pt now c/o right sided weakness, garbled speech noted, denies VILLAR, denies nausea. Pt reports being out of Eliquis for the past week or so. Transition of care: patient was not received from another setting of care. An acute neurological deficit is present. The charge nurse has been notified. Pre-hospital glucose is not applicable to this patient. Onset of symptoms was January 21, 2019 at 07:30. Risk Assessment: Do you want to hurt yourself or someone else? Patient reports no desire to harm self or others. Initial Sepsis Screen: Does the patient meet any 2 criteria? No. Patient's initial sepsis screen is negative. Does the patient have a suspected source of infection? No. Patient's initial sepsis screen is negative. Care prior to arrival: None. 12:33 Method Of Arrival: Ambulatory [facility] 12:33 Acuity: SUMMER 2 [facility] Triage Assessment: 12:30 The onset of the patients symptoms was January 21, 2019 at 07:30. General: Appears in jl7 no apparent distress. uncomfortable, Behavior is calm, cooperative, appropriate for age. Pain: Denies pain. Neuro: Level of Consciousness is awake, alert, obeys commands, Oriented to person, place, time, situation, Composition Roofer are weak on right Moves all extremities. Weakness in right Speech is slurred, with expressive aphasia noted, Facial droop on right, Intact Reports weakness. Cardiovascular: Denies chest pain, Heart tones present Patient's skin is warm and dry. Respiratory: Airway is patent Respiratory effort is even, unlabored, Respiratory pattern is regular, symmetrical, Breath sounds are clear bilaterally. Denies shortness of breath. GI: Abdomen is non-distended, Patient currently denies diarrhea, nausea, vomiting. : No signs and/or symptoms were reported regarding the genitourinary system. Derm: Skin is pink, warm \T\ dry. Stroke Activation: Symtpom onset >3 hours and < 6 hours Physician: Stroke Attending; Name: ; Notified At: ; Arrived At: Physician: Chief Stroke Resident; Name: ; Notified At: ; Arrived At: Physician: Stroke Resident; Name: ; Notified At: ; Arrived At: Physician: ED Attending; Name: Pedro; Notified At: ; Arrived At: Physician: ED Resident; Name: ; Notified At: ; Arrived At: Historical: - Allergies: 12:43 No Known Allergies; jl7 - Home Meds: 12:43 furosemide 40 mg Oral tab 1 tab 2 times per day [Active]; metoprolol tartrate 100 mg jl7 Oral tab 1 tab 2 times per day [Active]; diltiazem HCl 120 mg Oral cpER 1 cap once daily [Active]; folic acid 1 mg Oral tab 1 tab once daily [Active]; gabapentin 300 mg Oral cap 1 cap 3 times per day [Active]; Eliquis 5 mg Oral tab 1 tab 2 times per day [Active]; metolazone 5 mg oral tab [Active]; magnesium oxide 400 mg Oral cap [Active]; - PMHx: 12:43 Atrial Fib; COPD; Hypertension; jl7 - PSHx: 12:43 CABG; jl7 - Immunization history:: Adult Immunizations unknown. - Social history:: Smoking status: Patient uses tobacco products, smokes one-half pack cigarettes per day, Patient uses alcohol, on a daily basis. claims drinking about a 6 pack/day. - Ebola Screening: : No symptoms or risks identified at this time. Screenin:49 Abuse screen: Denies threats or abuse. Denies injuries from another. Nutritional jl7 screening: No deficits noted. Tuberculosis screening: No symptoms or risk factors identified. Fall Risk Secondary diagnosis (15 points) CVA, IV access (20 points). Assessment: 12:12 Reassessment: Pt to CT via wheelchair. jl7 12:20 VAN Scoring: Arm Drift: Minor drift Visual Disturbance: No visual disturbance noted. jl7 Aphasia: Expressive aphasia noted. Provider notified of +VAN scoring. The patient has not been NPO before screening. The patient is currently on the following diet: Regular The patient is alert, and able to follow commands. The patient exhibits slurred or garbled speech. Provider notified of the indication for Speech Therapy consult. The patient is exhibiting difficulty speaking. Provider notified of the indication for Speech Therapy consult. The patient does not exhibit difficulty understanding words. The patient is able to swallow own secretions with no drooling or need for suction. Patient tolerated one teaspoon of water. No drooling, immediate coughing, gurgling, or clearing of the throat was noted. The patient did not tolerate 90mL of water. Drooling, immediate coughing, gurgling, or clearing of the throat was noted. Bedside swallow screening discontinued. Patient kept NPO until cleared by Speech Therapy or Physician. The patient failed the bedside swallow screening. The patient will be kept NPO until cleared by Speech Therapy or Physician. Provider notified of bedside swallow screening results: Alessandro CHAMBERS. T-PA (Activase) Screening: Contraindications: Patient reports onset of signs and symptoms of stroke greater than 6 hours ago: No. 12:20 General: Appears uncomfortable, Behavior is calm, cooperative, appropriate for age. jl7 Pain: Denies pain. Neuro: Level of Consciousness is awake, alert, obeys commands, Oriented to person, place, time, situation, Composition Roofer are weak on right Speech is slurred, with expressive aphasia noted, Facial droop on right. Cardiovascular: Heart tones present Patient's skin is warm and dry. Respiratory: Airway is patent Respiratory effort is even, unlabored, Respiratory pattern is regular, symmetrical, Breath sounds are clear bilaterally. GI: No signs and/or symptoms were reported involving the gastrointestinal system. : No signs and/or symptoms were reported regarding the genitourinary system. Derm: Skin is pink, warm \T\ dry. 13:30 Reassessment: Patient appears in no apparent distress at this time. No changes from jl7 previously documented assessment. Patient and/or family updated on plan of care and expected duration. Pain level reassessed. Patient is alert, oriented x 3, equal unlabored respirations, skin warm/dry/pink. 14:30 Reassessment: Patient appears in no apparent distress at this time. No changes from jl7 previously documented assessment. Patient and/or family updated on plan of care and expected duration. Pain level reassessed. Patient is alert, oriented x 3, equal unlabored respirations, skin warm/dry/pink. 15:30 Reassessment: Patient appears in no apparent distress at this time. No changes from jl7 previously documented assessment. Patient and/or family updated on plan of care and expected duration. Pain level reassessed. Patient is alert, oriented x 3, equal unlabored respirations, skin warm/dry/pink. 16:35 Reassessment: Patient appears in no apparent distress at this time. No changes from jl7 previously documented assessment. Patient and/or family updated on plan of care and expected duration. Pain level reassessed. Patient is alert, oriented x 3, equal unlabored respirations, skin warm/dry/pink. 17:55 Reassessment: Patient appears in no apparent distress at this time. No changes from jl7 previously documented assessment. Patient and/or family updated on plan of care and expected duration. Pain level reassessed. Patient is alert, oriented x 3, equal unlabored respirations, skin warm/dry/pink. 18:00 Reassessment: [facility] at bedside to transport pt. jl7 Vital Signs: 12:30 BP 114 / 65; Pulse 86; Resp 16 S; Temp 98.9(O); Pulse Ox 95% on R/A; Pain 0/10; jl7 13:00 BP 113 / 69; Pulse 75; Resp 16 S; Pulse Ox 95% on R/A; jl7 13:30 BP 128 / 74; Pulse 77; Resp 16 S; Pulse Ox 95% on R/A; jl7 14:00 BP 126 / 73; Pulse 66; Resp 16 S; Pulse Ox 95% on R/A; jl7 14:30 BP 139 / 83; Pulse 66; Resp 16 S; Pulse Ox 95% on R/A; jl7 15:30 BP 125 / 59; Pulse 78; Resp 16 S; Pulse Ox 95% on R/A; jl7 16:35 BP 127 / 78; Pulse 73; Resp 16; Pulse Ox 94% on R/A; jl7 17:54 BP 135 / 79; Pulse 74; Resp 16 S; Pulse Ox 96% on R/A; jl7 NIH Stroke Scale Scores: 12:20 NIHSS Score: 7 jl7 12:24 NIHSS Score: 6 jr8 ED Course: 12:09 Patient arrived in ED. as 12:12 [facility] jr8 12:12 Edmund Pedro MD is Attending Physician. jr8 12:16 CT Stroke Brain w/o Contrast In Process Unspecified. EDMS 12:26 Ryan Patel, [facility] is Primary Nurse. jl7 12:30 Initial lab(s) drawn, by me, sent to lab. Inserted saline lock: 20 gauge in right jl7 antecubital area, using aseptic technique. Blood collected. 12:30 Arm band placed on right wrist. jl7 12:35 Inserted saline lock: 20 gauge in left forearm, using aseptic technique. jl7 12:38 EKG done, by technical engineer. reviewed by Alessandro CHAMBERS. sm3 12:40 Triage completed. jl7 12:49 Patient has correct armband on for positive identification. Placed in gown. Bed in low jl7 position. Call light in reach. Side rails up X2. manager monitoring on. Pulse ox on. NIBP on. Warm blanket given. 13:08 Stroke CXR 1 View In Process Unspecified. EDMS 13:14 CT Head Angio In Process Unspecified. EDMS 13:14 Neck Angio In Process Unspecified. EDMS 15:55 No provider procedures requiring assistance completed. jl7 15:55 Assisted with urinal. jl7 18:00 Patient transferred, IV remains in place. intact, No redness/swelling at site. jl7 Administered Medications: 14:41 Drug: Aspirin 81 mg {Note: Pt chewed medication per VO from ERP.} Route: PO; jl7 16:38 Follow up: Response: No adverse reaction jl7 Point of Care Testing: Blood Glucose: 12:30 Blood Glucose: 87 mg/dL; jl7 Ranges: Outcome: 14:12 ER care complete, transfer ordered by . jr8 18:00 Transferred by ground EMS to [facility], Transfer form completed. jl7 X-rays sent w/ patient. 18:00 Condition: stable 18:00 Discharge instructions given to patient, family, Instructed on the need for transfer, Demonstrated understanding of instructions. 18:01 Patient left the ED. jl7 NIH Stroke Scale - NIH Stroke Score Date: 01/21/2019 Time: 12:20 Total Score = 7 1a. Level of Consciousness (LOC) - 0(Alert) 1b. Level of Consciousness (LOC) (Year \T\ Age) - 0(Both) 1c. LOC Commands (Open \T\ Closes Eyes/Macroeconomics Professor) - 0(Both) 2. Best Gaze (Lateral Gaze Paresis) - 0(Normal) 3. Visual Field Loss - 0(No visual loss) 4. Facial Palsy - 1(Minor Paralysis) 5a. Left Arm: Motor (10-second hold) - 0(No drift) 5b. Right Arm: Motor (10-second hold) - 1(Drift) 6a. Left Leg: Motor (5-second hold - always test supine) - 0(No drift) 6b. Right Leg: Motor (5-second hold - always test supine) - 1(Drift) 7. Limb Ataxia (finger/nose \T\ heel/leija - test with eyes open) - 2(Present in two limbs) 8. Sensory Loss (pinprick arms/legs/face) - 0(Normal) 9. Best Language: Aphasia (description/naming/reading) - 1(Mild to moderate aphasia) 10. Dysarthria (speech clarity - read or repeat words) - 1(Mild to Moderate) 11. Extinction and Inattention (visual/tactile/auditory/spatial/personal) - 0(No abnormality) Initials: jl7 NIH Stroke Scale - NIH Stroke Score Date: 01/21/2019 Time: 12:24 Total Score = 6 1a. Level of Consciousness (LOC) - 0(Alert) 1b. Level of Consciousness (LOC) (Year \T\ Age) - 0(Both) 1c. LOC Commands (Open \T\ Closes Eyes/Macroeconomics Professor) - 0(Both) 2. Best Gaze (Lateral Gaze Paresis) - 0(Normal) 3. Visual Field Loss - 0(No visual loss) 4. Facial Palsy - 0(Normal) 5a. Left Arm: Motor (10-second hold) - 0(No drift) 5b. Right Arm: Motor (10-second hold) - 1(Drift) 6a. Left Leg: Motor (5-second hold - always test supine) - 0(No drift) 6b. Right Leg: Motor (5-second hold - always test supine) - 2(Drift, some effort against gravity) 7. Limb Ataxia (finger/nose \T\ heel/leija - test with eyes open) - 2(Present in two limbs) 8. Sensory Loss (pinprick arms/legs/face) - 0(Normal) 9. Best Language: Aphasia (description/naming/reading) - 0(No aphasia) 10. Dysarthria (speech clarity - read or repeat words) - 1(Mild to Moderate) 11. Extinction and Inattention (visual/tactile/auditory/spatial/personal) - 0(No abnormality) Initials: jr8 Signatures: Dispatcher [employer] Alix Holley Josh, PA PA jr8 Ryan Patel RN RN jl7 Lauren Parr 3
--- NOTE | 2019-01-21 14:13 | EDPHYS ---
Physician Documentation [facility] Name: Tex Vergara Age: 63 yrs Sex: Male : 1955 Arrival Date: 01/21/2019 Time: 12:09 Bed 7 Private MD: ED Physician Edmund Pedro HPI: 01/21 13:06 This 63 yrs old Male presents to ER via Ambulatory with complaints of jr8 Numbness, Slurred Speech, Leg Swelling. 13:06 The patient's problem is reported as dysphasia, slurred speech, weakness, in the right jr8 upper extremity, in the right lower extremity. Onset: The symptoms/episode began/occurred acutely, today, at 07:30. Duration: The episode is continuous. Context: the episode(s) was witnessed, by family. The symptoms are alleviated by nothing. The symptoms are aggravated by nothing. Associated signs and symptoms: The patient has no apparent associated signs or symptoms. Severity of symptoms: At their worst the symptoms were moderate in the emergency department the symptoms are unchanged. Patient's baseline: Neuro: alert and fully oriented, Motor: no deficits, Ambulation: walks without assistance, Speech: normal. The patient has not experienced similar symptoms in the past. The patient has not recently seen a physician. Patient came home from work this AM. Around 0730 noticed he was having hard time grasping things with right hand. Since then had developed with speech difficulty and weakness to right side. Had went to lay down for a while. Upon waking saw that it was worsening. Came to ED at that time. History of Atrial fib. Has been off of his eliquis for over a week . Historical: - Allergies: 12:43 No Known Allergies; jl7 - Home Meds: 12:43 furosemide 40 mg Oral tab 1 tab 2 times per day [Active]; metoprolol tartrate 100 mg jl7 Oral tab 1 tab 2 times per day [Active]; diltiazem HCl 120 mg Oral cpER 1 cap once daily [Active]; folic acid 1 mg Oral tab 1 tab once daily [Active]; gabapentin 300 mg Oral cap 1 cap 3 times per day [Active]; Eliquis 5 mg Oral tab 1 tab 2 times per day [Active]; metolazone 5 mg oral tab [Active]; magnesium oxide 400 mg Oral cap [Active]; - PMHx: 12:43 Atrial Fib; COPD; Hypertension; jl7 - PSHx: 12:43 CABG; jl7 - Immunization history:: Adult Immunizations unknown. - Social history:: Smoking status: Patient uses tobacco products, smokes one-half pack cigarettes per day, Patient uses alcohol, on a daily basis. claims drinking about a 6 pack/day. - Ebola Screening: : No symptoms or risks identified at this time. ROS: 13:09 Eyes: Negative for injury, pain, redness, and discharge, ENT: Negative for injury, jr8 pain, and discharge, Neck: Negative for injury, pain, and swelling, Cardiovascular: Negative for chest pain, palpitations, and edema, Respiratory: Negative for shortness of breath, cough, wheezing, and pleuritic chest pain, Abdomen/GI: Negative for abdominal pain, nausea, vomiting, diarrhea, and constipation, Back: Negative for injury and pain, MS/Extremity: Negative for injury and deformity, Skin: Negative for injury, rash, and discoloration. 13:09 Neuro: Positive for speech changes, weakness. Exam: 12:24 Eyes: Pupils equal round and reactive to light, extra-ocular motions intact. Lids and jr8 lashes normal. Conjunctiva and sclera are non-icteric and not injected. Cornea within normal limits. Periorbital areas with no swelling, redness, or edema. ENT: Nares patent. No nasal discharge, no septal abnormalities noted. Tympanic membranes are normal and external auditory canals are clear. Oropharynx with no redness, swelling, or masses, exudates, or evidence of obstruction, uvula midline. Mucous membranes moist. Neck: Trachea midline, no thyromegaly or masses palpated, and no cervical lymphadenopathy. Supple, full range of motion without nuchal rigidity, or vertebral point tenderness. No Meningismus. Cardiovascular: Regular rate and rhythm with a normal S1 and S2. No gallops, murmurs, or rubs. Normal PMI, no JVD. No pulse deficits. Respiratory: Lungs have equal breath sounds bilaterally, clear to auscultation and percussion. No rales, rhonchi or wheezes noted. No increased work of breathing, no retractions or nasal flaring. Abdomen/GI: Soft, non-tender, with normal bowel sounds. No distension or tympany. No guarding or rebound. No evidence of tenderness throughout. Back: No spinal tenderness. No costovertebral tenderness. Full range of motion. Skin: Warm, dry with normal turgor. Normal color with no rashes, no lesions, and no evidence of cellulitis. MS/ Extremity: Pulses equal, no cyanosis. Neurovascular intact. Full, normal range of motion. 12:24 Neuro: Orientation: to person, place \T\ time. Mentation: is normal, Memory: is normal, Cranial nerves: CN I not tested, CN II- XII are normal as tested, visual contreras are intact. extraocular movements are intact, Facial palsy and sensory deficits are absent. Speech is dysarthric, slurred, Tongue strength is normal, Cerebellar function: dysmetria is noted on the right, the patient is unable to track right heel to left leija, Motor: moves all fours, strength is 5/5 in the left hand, left foot, left arm and left leg, strength is 4/5 in the right hand and right arm, Strength is 3/5 in the right leg, Sensation: no obvious gross deficits, Gait: not tested. seizure activity, is not displayed by the patient, Abnormal movements: there are no abnormal movements. 12:27 Radiologist reports: Negative for acute findings jr8 Vital Signs: 12:30 BP 114 / 65; Pulse 86; Resp 16 S; Temp 98.9(O); Pulse Ox 95% on R/A; Pain 0/10; jl7 13:00 BP 113 / 69; Pulse 75; Resp 16 S; Pulse Ox 95% on R/A; jl7 13:30 BP 128 / 74; Pulse 77; Resp 16 S; Pulse Ox 95% on R/A; jl7 14:00 BP 126 / 73; Pulse 66; Resp 16 S; Pulse Ox 95% on R/A; jl7 14:30 BP 139 / 83; Pulse 66; Resp 16 S; Pulse Ox 95% on R/A; jl7 15:30 BP 125 / 59; Pulse 78; Resp 16 S; Pulse Ox 95% on R/A; jl7 16:35 BP 127 / 78; Pulse 73; Resp 16; Pulse Ox 94% on R/A; jl7 17:54 BP 135 / 79; Pulse 74; Resp 16 S; Pulse Ox 96% on R/A; jl7 NIH Stroke Scale Scores: 12:20 NIHSS Score: 7 jl7 12:24 NIHSS Score: 6 jr8 MDM: 12:12 Patient medically screened. [facility] 13:05 ED course: Patient outside tPA window as symptom onset was at 0730 this morning. Ruling jr8 out large vessel occlusion to determine if patient is thrombectomy candidate . 13:57 Data reviewed: vital signs, nurses notes, lab test result(s), EKG, radiologic studies, [facility] CT scan, plain films. Data interpreted: Pulse oximetry: on room air is 95 %. Interpretation: normal. Counseling: I had a detailed discussion with the patient and/or guardian regarding: the historical points, exam findings, and any diagnostic results supporting the discharge/admit diagnosis, lab results, radiology results, the need to transfer to another facility, for higher level of care. ED course: Discussed case with Dr. Morris. Would like to transfer to higher level of care based on carotid examination and significant stenosis to see if they could more urgently do endovascular stenting . 14:10 ED course: Dr. Bower called and accepted patient for neuro consult . [facility] 01/21 12:13 Order name: Hepatic Function; Complete Time: 13:04 [facility] 01/21 12:13 Order name: Troponin (emerg Dept Use Only); Complete Time: 13:04 [facility] 01/21 12:13 Order name: Magnesium; Complete Time: 13:04 [facility] 01/21 12:13 Order name: Basic Metabolic Panel; Complete Time: 13:04 [facility] 01/21 12:13 Order name: CBC with Diff; Complete Time: 12:47 [facility] 01/21 12:13 Order name: Protime (+inr); Complete Time: 12:50 [facility] 01/21 12:13 Order name: Ptt, Activated; Complete Time: 12:50 [facility] 01/21 12:13 Order name: CT Stroke Brain w/o Contrast; Complete Time: 12:30 [facility] 01/21 12:13 Order name: Stroke CXR 1 View; Complete Time: 13:19 [facility] 01/21 12:13 Order name: EKG; Complete Time: 12:14 [facility] 01/21 12:24 Order name: CT Head Angio; Complete Time: 13:51 [facility] 01/21 12:28 Order name: Neck Angio; Complete Time: 13:51 [facility] 01/21 12:33 Order name: Glucose, Ancillary Testing; Complete Time: 12:47 [facility] 01/21 12:13 Order name: Accucheck; Complete Time: 12:51 [facility] 01/21 12:13 Order name: Cardiac monitoring; Complete Time: 12:42 [facility] 01/21 12:13 Order name: EKG - Nurse/Tech; Complete Time: 12:42 8 01/21 12:13 Order name: IV Saline Lock; Complete Time: 12:50 [facility] 01/21 12:13 Order name: Labs collected and sent; Complete Time: 12:49 8 01/21 12:13 Order name: NPO; Complete Time: 12:49 8 01/21 12:13 Order name: O2 Per Protocol; Complete Time: 12:49 [facility] 01/21 12:13 Order name: O2 Sat Monitoring; Complete Time: 12:49 [facility] 01/21 12:13 Order name: Stroke Swallow Screen; Complete Time: 12:51 jr Administered Medications: 14:41 Drug: Aspirin 81 mg {Note: Pt chewed medication per VO from ERP.} Route: PO; [facility] 16:38 Follow up: Response: No adverse reaction [facility] Point of Care Testing: Blood Glucose: 12:30 Blood Glucose: 87 mg/dL; [facility] Ranges: Critical Glucose Levels:Adult <50 mg/dl or >400 mg/dl <40 mg/dl or >180 mg/dl Disposition: 01/21/19 14:12 Transfer ordered to [facility]. Diagnosis is Cerebral infarction. - Reason for transfer: Higher level of care. - Accepting physician is [facility]. - Condition is Stable. - Problem is new. - Symptoms have improved. NIH Stroke Scale - NIH Stroke Score Date: 01/21/2019 Time: 12:20 Total Score = 7 1a. Level of Consciousness (LOC) - 0(Alert) 1b. Level of Consciousness (LOC) (Year \T\ Age) - 0(Both) 1c. LOC Commands (Open \T\ Closes Eyes/Kiln Drawer) - 0(Both) 2. Best Gaze (Lateral Gaze Paresis) - 0(Normal) 3. Visual Field Loss - 0(No visual loss) 4. Facial Palsy - 1(Minor Paralysis) 5a. Left Arm: Motor (10-second hold) - 0(No drift) 5b. Right Arm: Motor (10-second hold) - 1(Drift) 6a. Left Leg: Motor (5-second hold - always test supine) - 0(No drift) 6b. Right Leg: Motor (5-second hold - always test supine) - 1(Drift) 7. Limb Ataxia (finger/nose \T\ heel/leija - test with eyes open) - 2(Present in two limbs) 8. Sensory Loss (pinprick arms/legs/face) - 0(Normal) 9. Best Language: Aphasia (description/naming/reading) - 1(Mild to moderate aphasia) 10. Dysarthria (speech clarity - read or repeat words) - 1(Mild to Moderate) 11. Extinction and Inattention (visual/tactile/auditory/spatial/personal) - 0(No abnormality) Initials: jl7 NIH Stroke Scale - NIH Stroke Score Date: 01/21/2019 Time: 12:24 Total Score = 6 1a. Level of Consciousness (LOC) - 0(Alert) 1b. Level of Consciousness (LOC) (Year \T\ Age) - 0(Both) 1c. LOC Commands (Open \T\ Closes Eyes/Kiln Drawer) - 0(Both) 2. Best Gaze (Lateral Gaze Paresis) - 0(Normal) 3. Visual Field Loss - 0(No visual loss) 4. Facial Palsy - 0(Normal) 5a. Left Arm: Motor (10-second hold) - 0(No drift) 5b. Right Arm: Motor (10-second hold) - 1(Drift) 6a. Left Leg: Motor (5-second hold - always test supine) - 0(No drift) 6b. Right Leg: Motor (5-second hold - always test supine) - 2(Drift, some effort against gravity) 7. Limb Ataxia (finger/nose \T\ heel/leija - test with eyes open) - 2(Present in two limbs) 8. Sensory Loss (pinprick arms/legs/face) - 0(Normal) 9. Best Language: Aphasia (description/naming/reading) - 0(No aphasia) 10. Dysarthria (speech clarity - read or repeat words) - 1(Mild to Moderate) 11. Extinction and Inattention (visual/tactile/auditory/spatial/personal) - 0(No abnormality) Initials: jr8 Addendum: 01/26/2019 17:35 Co-signature as Attending Physician, Edmund Pedro MD Did not see or evaluate ps1 the patient. Signing the chart for administrative purposes. Not an endorsement of care provided. . Signatures: Dispatcher [employer] Alessandro Del Valle PA PA jr8 Ryan Patel RN RN jl7 Edmund Pedro MD MD ps1 Corrections: (The following items were deleted from the chart) 01/21 18:01 14:12 01/21/2019 14:12 Transfer ordered to [facility]. jl7 Diagnosis is Cerebral infarction. Reason for transfer: Higher level of care. Accepting physician is [facility]. Condition is Stable. Problem is new. Symptoms have improved. jr8
--- NOTE | 2019-01-21 16:31 | EKG ---
Test Date: 2019-01-21 Test Time: 12:33:37 Doffer: MCKENZIE MEASUREMENT RESULTS: Intervals: Rate: 80 ME: QRSD: 114 QT: 464 QTc: 535 [place]: P: ME: QRS: 4 T: 3 INTERPRETIVE STATEMENTS: Atrial fibrillation Incomplete left bundle branch block Moderate voltage criteria for LVH, may be normal variant Nonspecific ST and T wave abnormality Prolonged QT Abnormal ECG Compared to ECG 05/16/2018 08:13:28 Left bundle-branch block now present ST (T wave) deviation now present Sinus bradycardia no longer present Early repolarization no longer present Electronically Signed On 01-21-19 16:30:06 AUDIO VISUAL TECHNICIAN by Gabriel Monsalve
[2019-01-21 18:19] VITALS: TEMP 98.9
[2019-01-21 18:29] VITALS: BP 135/79; O2SAT 96
== END 2019-01-21 18:01 | disposition short-term general hospital (02) ==
LOC: ER 12:08
DX: I63.9 Cerebral infarction, unspecified (principal); R29.707 NIHSS score 7; I10 Essential (primary) hypertension; I48.91 Unspecified atrial fibrillation; J44.9 Chronic obstructive pulmonary disease, unspecified; F17.210 Nicotine dependence, cigarettes, uncomplicated; Z79.01 Long term (current) use of anticoagulants; Z95.1 Presence of aortocoronary bypass graft
CPT/HCPCS: 36415; 70450; 70496; 70498; 71045; 80048; 80076; 82947; 83735; 84484; 85025; 85610; 85730; 93005; 99285; Q9967

== ENCOUNTER 2019-03-11 09:11 | Inpatient (IN) | payer OTHER, SELFPAY ==
--- OUTSIDE RECORDS SUMMARY | 2019-03-11 09:13 | XMS REPORT ---
:1955 Author Organization [facility] Address [address] [place] [address] Dr. [address] [place] [address] Care Team Providers Name Role Phone CAITY CHAUDHARI Unavailable Unavailable Problems This patient has no known problems. Allergies, Adverse Reactions, Alerts This patient has no known allergies or adverse reactions. Medications This patient has no known medications. Results Test Description Test Time Test Comments Text Results Atomic Results Result Comments MAGNESIUM 2019-01-24 09:16:00 Test Item Value Reference Range Comments MAGNESIUM (BEAKER) (test hfmu=224) 1.7 mg/dL 1.6-2.6 [id number] 09:16:00 Test Item Value Reference Range Comments PHOSPHORUS (BEAKER) (test wclm=708) 4.2 mg/dL 2.3-4.7 BASIC METABOLIC [id number] 05:44:00 Test Item Value Reference Range Comments SODIUM (BEAKER) (test 137 meq/L 136-145 apoz=640) POTASSIUM (BEAKER) (test 3.6 meq/L 3.5-5.1 tint=426) CHLORIDE (BEAKER) (test 101 meq/L 98-107 tkgf=794) CO2 (BEAKER) (test 31 meq/L 22-29 gxkb=121) BLOOD UREA NITROGEN 10 mg/dL 7-21 (BEAKER) (test qbks=312) CREATININE (BEAKER) (test 0.75 mg/dL 0.57-1.25 lfmf=967) GLUCOSE RANDOM (BEAKER) 79 mg/dL 70-105 (test qelf=604) CALCIUM (BEAKER) (test 9.6 mg/dL 8.4-10.2 iyfv=177) EGFR (BEAKER) (test 105 mL/min/1.73 sq m ESTIMATED GFR IS NOT mcpv=4205) ACCURATE CREATININE CLEARANCE IN PREDICTING GLOMERULAR FILTRATION RATE. ESTIMATED GFR IS NOT APPLICABLE FOR DIALYSIS PATIENTS. CBC W/PLT COUNT & AUTO [id number] 05:29:00 Test Item Value Reference Range Comments WHITE BLOOD CELL COUNT (BEAKER) (test qlve=716) 7.9 K/ L 3.5-10.5 RED BLOOD CELL COUNT (BEAKER) (test ynov=207) 5.45 M/ L 4.63-6.08 HEMOGLOBIN (BEAKER) (test cdoz=268) 13.9 GM/DL 13.7-17.5 HEMATOCRIT (BEAKER) (test arzp=433) 42.6 % 40.1-51.0 MEAN CORPUSCULAR VOLUME (BEAKER) (test wasc=567) 78.2 fL 79.0-92.2 MEAN CORPUSCULAR HEMOGLOBIN (BEAKER) (test 25.5 pg 25.7-32.2 atax=175) MEAN CORPUSCULAR HEMOGLOBIN CONC (BEAKER) (test 32.6 GM/DL 32.3-36.5 rsnn=274) RED CELL DISTRIBUTION WIDTH (BEAKER) (test 16.1 % 11.6-14.4 itrk=648) PLATELET COUNT (BEAKER) (test rzst=735) 400 K/CU MM 150-450 MEAN PLATELET VOLUME (BEAKER) (test rzag=016) 10.0 fL 9.4-12.4 NUCLEATED RED BLOOD CELLS (BEAKER) (test 0 /100 WBC 0-0 lsvm=123) NEUTROPHILS RELATIVE PERCENT (BEAKER) (test 58 % bixu=156) LYMPHOCYTES RELATIVE PERCENT (BEAKER) (test 23 % pzux=787) MONOCYTES RELATIVE PERCENT (BEAKER) (test 13 % idqw=298) EOSINOPHILS RELATIVE PERCENT (BEAKER) (test 4 % xsml=699) BASOPHILS RELATIVE PERCENT (BEAKER) (test 1 % opsq=277) NEUTROPHILS ABSOLUTE COUNT (BEAKER) (test 4.62 K/ L 1.78-5.38 atkl=849) LYMPHOCYTES ABSOLUTE COUNT (BEAKER) (test 1.85 K/ L 1.32-3.57 xtnl=527) MONOCYTES ABSOLUTE COUNT (BEAKER) (test 0.99 K/ L 0.30-0.82 jdmk=503) EOSINOPHILS ABSOLUTE COUNT (BEAKER) (test 0.33 K/ L 0.04-0.54 gqwv=735) BASOPHILS ABSOLUTE COUNT (BEAKER) (test 0.09 K/ L 0.01-0.08 yrwh=609) IMMATURE GRANULOCYTES-RELATIVE PERCENT (BEAKER) 0 % 0-1 (test vxhd=9034) TROPONIN [id number] 22:36:00 Test Item Value Reference Range Comments TROPONIN I (BEAKER) (test ujrj=784) 0.05 ng/mL 0.00-0.03 Troponin I (TnI) levels must be interpreted in the context of the presenting symptoms and the clinical findings. Elevated TnI levels indicate myocardial damage, but are not specific for ischemic heart disease. Elevated TnI levels are seen in patients with other cardiac conditions (including myocarditis and congestive heart failure), and slight TnI elevations occur in patients with other conditions, including sepsis, renal failure, acidosis, acute neurological disease, and persistent tachyarrhythmia.TROPONIN [id number] 16:36:00 Test Item Value Reference Range Comments TROPONIN I (BEAKER) (test andv=779) 0.02 ng/mL 0.00-0.03 Troponin I (TnI) levels must be interpreted in the context of the presenting symptoms and the clinical findings. Elevated TnI levels indicate myocardial damage, but are not specific for ischemic heart disease. Elevated TnI levels are seen in patients with other cardiac conditions (including myocarditis and congestive heart failure), and slight TnI elevations occur in patients with other conditions, including sepsis, renal failure, acidosis, acute neurological disease, and persistent tachyarrhythmia.TSH/FREE T4 IF [id number] 10:58 :00 Test Item Value Reference Range Comments THYROID STIMULATING HORMONE (BEAKER) (test 1.16 uIU/mL 0.35-4.94 ryrn=366) TROPONIN [id number] 10:44:00 Test Item Value Reference Range Comments TROPONIN I (BEAKER) (test zdxi=890) 0.02 ng/mL 0.00-0.03 Troponin I (TnI) levels must be interpreted in the context of the presenting symptoms and the clinical findings. Elevated TnI levels indicate myocardial damage, but are not specific for ischemic heart disease. Elevated TnI levels are seen in patients with other cardiac conditions (including myocarditis and congestive heart failure), and slight TnI elevations occur in patients with other conditions, including sepsis, renal failure, acidosis, acute neurological disease, and persistent tachyarrhythmia.B-TYPE NATRIURETIC FACTOR (BNP) 10:44:00 Test Item Value Reference Range Comments B-TYPE NATRIURETIC PEPTIDE (BEAKER) (test 597 pg/mL 0-100 bvyq=813) [id number] 10:05:00 Test Item Value Reference Range Comments MAGNESIUM (BEAKER) (test gvbg=915) 1.7 mg/dL 1.6-2.6 MR, MRA, BRAIN, WITHOUT [id number] 08:26:00FINAL REPORT MRV Head CLINICAL HISTORY:Stroke, follow upconcern for transverse sinus thrombosis, need MRV please TECHNIQUE: MRV of the head utilizing 2-D time- of-flight technique. COMPARISON: CTA 01/22/2019 FINDINGS: There is an irregular filling defect within the medial aspect of the left transverse sinus, corresponding with the abnormality seen on yesterday's CTA. The other major dural venous sinuses in the brain are patent. IMPRESSION: Filling defect within the medial aspect of the left transverse sinus remains concerning for venous thrombosis. Signed: Simran Rajan MDReport Verified Date/Time: 01/23/2019 08: 26:36 08: 26 AMBASIC METABOLIC [id number] 05:55:00 Test Item Value Reference Range Comments SODIUM (BEAKER) (test 137 meq/L 136-145 adxn=382) POTASSIUM (BEAKER) (test 3.2 meq/L 3.5-5.1 nwun=786) CHLORIDE (BEAKER) (test 100 meq/L 98-107 toji=471) CO2 (BEAKER) (test 30 meq/L 22-29 xbhn=537) BLOOD UREA NITROGEN 9 mg/dL 7-21 (BEAKER) (test njea=117) CREATININE (BEAKER) (test 0.80 mg/dL 0.57-1.25 eyng=201) GLUCOSE RANDOM (BEAKER) 93 mg/dL 70-105 (test ehln=812) CALCIUM (BEAKER) (test 9.3 mg/dL 8.4-10.2 upnd=003) EGFR (BEAKER) (test 97 mL/min/1.73 sq m ESTIMATED GFR IS NOT sudq=2556) ACCURATE CREATININE CLEARANCE IN PREDICTING GLOMERULAR FILTRATION RATE. ESTIMATED GFR IS NOT APPLICABLE FOR DIALYSIS PATIENTS. CBC W/PLT COUNT & AUTO [id number] 05:34:00 Test Item Value Reference Range Comments WHITE BLOOD CELL COUNT (BEAKER) (test zidi=537) 7.3 K/ L 3.5-10.5 RED BLOOD CELL COUNT (BEAKER) (test aiux=851) 5.34 M/ L 4.63-6.08 HEMOGLOBIN (BEAKER) (test lxqg=540) 13.4 GM/DL 13.7-17.5 HEMATOCRIT (BEAKER) (test pabc=897) 41.5 % 40.1-51.0 MEAN CORPUSCULAR VOLUME (BEAKER) (test zkgu=485) 77.7 fL 79.0-92.2 MEAN CORPUSCULAR HEMOGLOBIN (BEAKER) (test 25.1 pg 25.7-32.2 bxss=813) MEAN CORPUSCULAR HEMOGLOBIN CONC (BEAKER) (test 32.3 GM/DL 32.3-36.5 rzro=981) RED CELL DISTRIBUTION WIDTH (BEAKER) (test 15.6 % 11.6-14.4 kfqu=327) PLATELET COUNT (BEAKER) (test vxdi=079) 374 K/CU MM 150-450 MEAN PLATELET VOLUME (BEAKER) (test surc=191) 9.9 fL 9.4-12.4 NUCLEATED RED BLOOD CELLS (BEAKER) (test 0 /100 WBC 0-0 edhn=458) NEUTROPHILS RELATIVE PERCENT (BEAKER) (test 60 % rwfm=974) LYMPHOCYTES RELATIVE PERCENT (BEAKER) (test 23 % fqvx=531) MONOCYTES RELATIVE PERCENT (BEAKER) (test 11 % hjyi=473) EOSINOPHILS RELATIVE PERCENT (BEAKER) (test 4 % zfch=596) BASOPHILS RELATIVE PERCENT (BEAKER) (test 1 % ksbg=269) NEUTROPHILS ABSOLUTE COUNT (BEAKER) (test 4.38 K/ L 1.78-5.38 blzn=828) LYMPHOCYTES ABSOLUTE COUNT (BEAKER) (test 1.69 K/ L 1.32-3.57 qovd=035) MONOCYTES ABSOLUTE COUNT (BEAKER) (test 0.77 K/ L 0.30-0.82 idpi=662) EOSINOPHILS ABSOLUTE COUNT (BEAKER) (test 0.32 K/ L 0.04-0.54 vidz=370) BASOPHILS ABSOLUTE COUNT (BEAKER) (test 0.08 K/ L 0.01-0.08 ipin=175) IMMATURE GRANULOCYTES-RELATIVE PERCENT (BEAKER) 0 % 0-1 (test ijgk=2365) [id number] 20:49:00 Test Item Value Reference Range Comments POTASSIUM (BEAKER) (test jmey=947) 2.8 meq/L 3.5-5.1 MR, BRAIN, WITHOUT [id number] 19:25:00Reason for exam:->Ischemic Stroke EvaluationFINAL REPORT MR, BRAIN, WITHOUT CONTRAST INDICATION: Stroke, follow upIschemic Stroke Evaluation TECHNIQUE: Multiplanar, multisequence MR imaging of the brain without intravenouscontrast. COMPARISON: Same day CTA head and neck FINDINGS: Intracranial: There are multifocal areasof restricted diffusion within the left frontal, temporal, and parietal lobes. Scattered foci of T2 prolongation within the periventricular and subcortical white matter are a nonspecific finding commonly attributed to chronic small vessel ischemic disease. No intracranial hemorrhage. Generalized cerebral atrophy with ex vacuo dilatation of the ventricular system proportionate to sulci. No mass effect. No hydrocephalus. Visualized intracranial flow voids are of normal course and caliber. Sinuses: Mild mucosal thickening in the paranasal sinuses. Small right mastoid effusion. Orbits: Globes are intact. Calvarium \T\ scalp: Unremarkable. IMPRESSION:Multifocal acute infarcts within the left frontal, temporal, and parietal lobes.No acute intracranial hemorrhage. These findings were discussed with Dr.ALOK RICH on 01/22/2019 7:14 PM. Signed: Simran Rajan Verified Date/Time: 19:25:11 Electronically signed by: SIMRAN RAJAN MD on 07:25 PMCT, CTANGIO [id number] 19:16:00FINAL REPORT CLINICAL HISTORY: Neuro deficit, acute, stroke suspected TECHNIQUE: Initially, noncontrast head CT images were performed. Contiguous contrast- enhanced axial images through the neck followed by axial images through the head with coronal and sagittal reformations to assess the arterial circulation. 3-D reconstructions were performed using a volume rendered technique separately on a workstation. This exam was performed according to the departmental dose optimizationprogram which includes automated exposure control, adjustment of the mA and/or kV according to the patient size, and/or use of an iterative reconstruction technique. Stenosis evaluation reported in compliance with NASCET criteria. COMPARISON: None FINDINGS: CTA head:There is no CT evidence of acute infarct or hemorrhage. There is no hydrocephalus or midline shift. Scattered foci of hypoattenuation within the periventricular and subcortical white matter are a nonspecific finding commonly attributed to chronic small vessel ischemic disease. The skull is intact. No intracranial aneurysm, focal stenosis, or proximal branch vessel occlusion. There is an apparent filling defect within the medial aspect of the left transverse sinus. Remainder of the major dural venous sinuses are patent. CTA neck:Aorta: Aneurysmal ascending aorta measuring up to 4.9 cm in diameter. Great vessel origins: No occlusionor high-grade stenosis. Carotid arteries: Atherosclerosis at the right carotid bifurcation resultingin approximately 95% focal stenosis of the right ICA. Less than 50% focal stenosis of the left ICA. Vertebral arteries: No occlusion or high-grade stenosis. Moderate degenerative changes of the cervical spine. Cervical soft tissues are unremarkable. Moderate right and small left pleural effusions IMPRESSION:1.No CT evidence of acute intracranial hemorrhage or territorial infarct. Please see the separate report for the subsequent brain MRI.2.Filling defect within the medial aspect of the left transverse sinus concerning for venous thrombosis.3.Aneurysmal ascending aorta measuring at least 4.9 cm.4.Moderate right and small left pleural effusions. These findings were discussed with Dr. JOSUE RICH on 01/22/2019 7:14 PM. Signed: Simran Rajan MDRmer[facility] Verified Date/Time: 01/22/2019 19:16:06 CT, CAROTID, [id number] 19:16:00FINAL REPORT CLINICAL HISTORY: Neuro deficit, acute, stroke suspected TECHNIQUE: Initially, noncontrast head CT images were performed. Contiguous contrast-enhanced axial images through the neck followed by axial images through the head with coronal and sagittal reformations to assess the arterial circulation. 3-D reconstructions were performed using a volume rendered technique separately on a workstation. This exam was performed according to the departmental dose optimizationprogram which includes automated exposure control, adjustment of the mA and/or kV according to the patient size, and/or use of an iterative reconstruction technique. Stenosis evaluation reported in compliance with NASCET criteria. COMPARISON: None FINDINGS: CTA head :There is no CT evidence of acute infarct or hemorrhage. There is no hydrocephalus or midline shift. Scattered foci of hypoattenuation within the periventricular and subcortical white matter are a nonspecific finding commonly attributed to chronic small vessel ischemic disease. The skull is intact. No intracranial aneurysm, focal stenosis, or proximal branch vessel occlusion. There is an apparent filling defect within the medial aspect of the left transverse sinus. Remainder of the major dural venous sinuses are patent. CTA neck:Aorta: Aneurysmal ascending aorta measuring up to 4.9 cm in diameter. Great vessel origins: No occlusionor high-grade stenosis. Carotid arteries: Atherosclerosis at the right carotid bifurcation resultingin approximately 95% focal stenosis of the right ICA. Less than 50% focal stenosis of the left ICA. Vertebral arteries: No occlusion or high-grade stenosis. Moderate degenerative changes of the cervical spine. Cervical soft tissues are unremarkable. Moderate right and small left pleural effusions IMPRESSION:1.No CT evidence of acute intracranial hemorrhage or territorial infarct. Please see the separate report for the subsequent brain MRI.2.Filling defect within the medial aspect of the left transverse sinus concerning for venous thrombosis.3.Aneurysmal ascending aorta measuring at least 4.9 cm.4.Moderate right and small left pleural effusions. These findings were discussed with Dr. JOSUE RICH on 01/22/2019 7 :14 PM. Signed: Simran Rajan MDReport Verified Date/Time: 01/22/2019 19:16: 06 [id number] 11:47:00 Test Item Value Reference Range Comments RPR SCREEN (BEAKER) (test sluq=417) Nonreactive Nonreactive [id number] 08:23:00 Test Item Value Reference Range Comments MAGNESIUM (BEAKER) (test xjgi=317) 1.7 mg/dL 1.6-2.6 FastingHEMOGLOBIN [id number] 08:10:00 Test Item Value Reference Range Comments HEMOGLOBIN A1C (BEAKER) (test uzqk=163) 5.7 % 4.3-6.1 FastingLIPID [id number] 05:15:00 Test Item Value Reference Range Comments TRIGLYCERIDES (MACYAKER) (test xvju=909) 56 mg/dL CHOLESTEROL (BEAKER) (test zbbx=104) 79 mg/dL HDL CHOLESTEROL (BEAKER) (test xkzk=019) 23 mg/dL LDL CHOLESTEROL CALCULATED (MACYAKER) (test jbon=320) 45 mg/dL Triglyceride Reference Range: Low Risk <150 Borderline 150- 199 High Risk 200-499 Very High Risk >=500Cholesterol Reference Range: Low Risk <200 Borderline 200-239 High Risk > 240HDL Cholesterol Reference Range: Low Risk >=60 High Risk <40LDL Cholesterol Reference Range: Optimal <100 Near Optimal 100-129 Borderline 130-159 High 160-189 Very High >=190 FastingTROPONIN [id number] 05:11:00 Test Item Value Reference Range Comments TROPONIN I (BEAKER) (test dldc=802) 0.02 ng/mL 0.00-0.03 Troponin I (TnI) levels must be interpreted in the context of the presenting symptoms and the clinical findings. Elevated TnI levels indicate myocardial damage, but are not specific for ischemic heart disease. Elevated TnI levels are seen in patients with other cardiac conditions (including myocarditis and congestive heart failure), and slight TnI elevations occur in patients with other conditions, including sepsis, renal failure, acidosis, acute neurological disease, and persistent tachyarrhythmia.FastingVITAMIN B12 AND [id number] 04:01:00 Test Item Value Reference Range Comments VITAMIN B12 (BEAKER) (test ztxd=245) 1973 pg/mL 213-816 FOLATE (BEAKER) (test gsjm=400) 18.5 ng/mL >=7.0 TSH/FREE T4 IF [id number] 03:48:00 Test Item Value Reference Range Comments THYROID STIMULATING HORMONE (BEAKER) (test 1.38 uIU/mL 0.35-4.94 wdrx=114) TROPONIN [id number] 00:15:00 Test Item Value Reference Range Comments TROPONIN I (BEAKER) (test zypk=854) 0.02 ng/mL 0.00-0.03 Troponin I (TnI) levels must be interpreted in the context of the presenting symptoms and the clinical findings. Elevated TnI levels indicate myocardial damage, but are not specific for ischemic heart disease. Elevated TnI levels are seen in patients with other cardiac conditions (including myocarditis and congestive heart failure), and slight TnI elevations occur in patients with other conditions, including sepsis, renal failure, acidosis, acute neurological disease, and persistent tachyarrhythmia.BASIC METABOLIC [id number] 00:11:00 Test Item Value Reference Range Comments SODIUM (BEAKER) (test 133 meq/L 136-145 asjk=527) POTASSIUM (BEAKER) (test 2.7 meq/L 3.5-5.1 dkrq=002) CHLORIDE (BEAKER) (test 95 meq/L 98-107 picf=205) CO2 (BEAKER) (test 28 meq/L 22-29 qwjd=146) BLOOD UREA NITROGEN 9 mg/dL 7-21 (BEAKER) (test rqjt=778) CREATININE (BEAKER) (test 0.82 mg/dL 0.57-1.25 fjgp=084) GLUCOSE RANDOM (BEAKER) 139 mg/dL 70-105 (test llyp=072) CALCIUM (BEAKER) (test 9.3 mg/dL 8.4-10.2 sbxb=314) EGFR (BEAKER) (test 95 mL/min/1.73 sq m ESTIMATED GFR IS NOT cnzb=0739) ACCURATE CREATININE CLEARANCE IN PREDICTING GLOMERULAR FILTRATION RATE. ESTIMATED GFR IS NOT APPLICABLE FOR DIALYSIS PATIENTS. Specimen slightly ictericPROTHROMBIN TIME/[id number] 23:48:00 Test Item Value Reference Range Comments PROTIME (BEAKER) (test cusk=038) 14.8 seconds 11.9-14.2 INR (BEAKER) (test gyou=932) 1.2 <=5.9 Effective 07/24/2018: PT Reference Range ChangeNew: 11.9-14.2 Previous: 11.7- 14.7RECOMMENDED COUMADIN/WARFARIN INR THERAPY RANGESSTANDARD DOSE: 2.0-3.0 Includes: PROPHYLAXIS for venous thrombosis, systemic embolization; TREATMENT for venous thrombosis and/or pulmonary embolus.HIGH RISK: Target INR is2.5-3.5 for patients wiht mechanical heart valves.RAD, CHEST, 1 VIEW, NON [id number] 23:46:00Reason for exam:->strokeShould this be performed at the bedside?-& gt;YesFINAL REPORT INDICATION: stroke TECHNIQUE: Chest radiograph, single view, portable technique. FINDINGS / IMPRESSION: Patient is status post median sternotomy.Heart shadow is enlarged and there is a small right pleural effusion.No overt pulmonary edema, discrete pneumonia, or pneumothorax is demonstrated.Osseous structures unremarkable. Signed: Shyam Grant MDReport VerifiedDate/Time: 01/21/2019 23:46:27 Reading Location: [facility] [id number] Consult Reading Room CBC W/PLT COUNT & AUTO [id number] 23:39:00 Test Item Value Reference Range Comments WHITE BLOOD CELL COUNT (BEAKER) (test duqh=179) 8.0 K/ L 3.5-10.5 RED BLOOD CELL COUNT (BEAKER) (test izmz=258) 5.36 M/ L 4.63-6.08 HEMOGLOBIN (BEAKER) (test ultt=352) 13.5 GM/DL 13.7-17.5 HEMATOCRIT (BEAKER) (test aciu=995) 41.6 % 40.1-51.0 MEAN CORPUSCULAR VOLUME (BEAKER) (test fpbz=943) 77.6 fL 79.0-92.2 MEAN CORPUSCULAR HEMOGLOBIN (BEAKER) (test 25.2 pg 25.7-32.2 tfgf=362) MEAN CORPUSCULAR HEMOGLOBIN CONC (BEAKER) (test 32.5 GM/DL 32.3-36.5 muyl=173) RED CELL DISTRIBUTION WIDTH (BEAKER) (test 15.1 % 11.6-14.4 irha=738) PLATELET COUNT (BEAKER) (test bvsd=057) 376 K/CU MM 150-450 MEAN PLATELET VOLUME (BEAKER) (test kdth=894) 9.7 fL 9.4-12.4 NUCLEATED RED BLOOD CELLS (BEAKER) (test 0 /100 WBC 0-0 uevv=118) NEUTROPHILS RELATIVE PERCENT (BEAKER) (test 66 % ijjj=601) LYMPHOCYTES RELATIVE PERCENT (BEAKER) (test 19 % jqdu=161) MONOCYTES RELATIVE PERCENT (BEAKER) (test 10 % rliz=267) EOSINOPHILS RELATIVE PERCENT (BEAKER) (test 3 % huqo=602) BASOPHILS RELATIVE PERCENT (BEAKER) (test 1 % lcid=214) NEUTROPHILS ABSOLUTE COUNT (BEAKER) (test 5.30 K/ L 1.78-5.38 hgzv=860) LYMPHOCYTES ABSOLUTE COUNT (BEAKER) (test 1.52 K/ L 1.32-3.57 agyt=423) MONOCYTES ABSOLUTE COUNT (BEAKER) (test 0.78 K/ L 0.30-0.82 lymv=817) EOSINOPHILS ABSOLUTE COUNT (BEAKER) (test 0.24 K/ L 0.04-0.54 mozh=220) BASOPHILS ABSOLUTE COUNT (BEAKER) (test 0.08 K/ L 0.01-0.08 qeqd=890) IMMATURE GRANULOCYTES-RELATIVE PERCENT (BEAKER) 1 % 0-1 (test ymyc=0141)
[2019-03-11] MEDS ORDERED: DIGOXIN 0.25 MG/ML AMP ONE (09:43)
[2019-03-11] MEDS ORDERED: FUROSEMIDE 40 MG/4 ML VIAL ONE (09:43)
[2019-03-11 09:59] LABS: Absolute Lymphocytes (CBC) 1.1 K/uL (0.7-4.9); Basophils % 0.3 % (0-1.3); Hematocrit 40.5 % (39.6-49.0); Lymphocytes % 9.1 % (15.3-44.8); MPV 9.3 fL (7.6-11.3); RBC Red Blood Cell Count 5.38 M/uL (4.33-5.43)
[2019-03-11 10:04] LABS: Protime INR 2.2
--- NOTE | 2019-03-11 10:19 | RAD REPORT ---
EXAM DESCRIPTION: RAD - Chest Single View - 03/11/2019 9:43 am CLINICAL HISTORY: COUGH Chest pain. COMPARISON: Chest Single View dated 01/21/2019; Chest Pa And Lat (2 Views) dated 05/15/2018; Chest Pa And Lat (2 Views) dated 09/12/2017; Chest Single View dated 06/14/2017 FINDINGS: Portable technique limits examination quality. Mild interstitial pulmonary edema is seen. Moderate right pleural effusion. Trace left pleural effusi on. The heart is mildly enlarged in size. Aortic atherosclerosis. Sternotomy wires present.
[2019-03-11 10:34] LABS: Albumin 2.2 g/dL (3.4-5.0); Bilirubin Direct 3.7 mg/dL (0-0.2); Bilirubin Total 5.7 mg/dL (0.2-1.0); Magnesium 2.4 mg/dL (1.8-2.4); Thyroid Stimulating Hormone 1.19 uIU/mL (0.360-3.740); Troponin (Emerg Dept Use Only) 0.06 ng/mL (0.0-0.045)
[2019-03-11 10:36] LABS: Potassium 2.7 mmol/L (3.5-5.1)
[2019-03-11 11:10] LABS: Urine Blood 1+ (NEG); Urine Glucose NEGATIVE (NEG); Urine Protein TRACE (NEG); Urine Specific Gravity 1.005 (1.005-1.030)
[2019-03-11] MEDS ORDERED: METHYLPREDNISOLONE 125 MG INJ ONE (11:16)
[2019-03-11] MEDS ORDERED: LEVALBUTEROL 1.25 MG/3 ML NEB ONE (11:17)
[2019-03-11] MEDS ORDERED: KCL 20 MEQ/100 mL IVPB 20 MEQ/100 ML BAG IV ONE (11:17)
[2019-03-11] MEDS ORDERED: IPRATROPIUM BROM 0.5MG/2.5ML ONE (11:17)
[2019-03-11] MEDS ORDERED: POTASSIUM 25 MEQ EFFERV TAB ONE (11:17)
[2019-03-11] MEDS ORDERED: FAMOTIDINE 20 MG/2 ML VIAL IV ONE (11:17)
--- NOTE | 2019-03-11 12:02 | ER ---
Nurse's Notes [facility] Name: Tex Vergara Age: 63 yrs Sex: Male : 1955 Arrival Date: 03/11/2019 Time: : Bed 7 Private MD: Diagnosis: Dyspnea;Pleural effusion in conditions classified elsewhere;Atrial fibrillation and flutter-with rvr;Edema, unspecified;Unspecified combined systolic (congestive) and diastolic (congestive) heart failure;Unspecified kidney failure;Chronic obstructive pulmonary disease with (acute) exacerbation Presentation: 03/11 09:24 Presenting complaint: Patient states: was sent from Dr. Garcia's office for SOB, cough, iw leg swelling, takes lasix. Transition of care: patient was not received from another setting of care. Onset of symptoms was March 11, 2019. Risk Assessment: Do you want to hurt yourself or someone else? Patient reports no desire to harm self or others. Initial Sepsis Screen: Does the patient meet any 2 criteria?. Care prior to arrival: None. 09:24 Method Of Arrival: Wheelchair iw 09:24 Acuity: SUMMER 2 iw 09:24 Initial Sepsis Screen: Does the patient have a suspected source of infection? No. aa5 Patient's initial sepsis screen is negative. Historical: - Allergies: : No Known Allergies; iw - Home Meds: : diltiazem HCl 120 mg Oral cpER 1 cap once daily [Active]; Eliquis 5 mg Oral tab 1 tab 2 iw times per day [Active]; folic acid 1 mg Oral tab 1 tab once daily [Active]; furosemide 40 mg Oral tab 1 tab 2 times per day [Active]; gabapentin 300 mg Oral cap 1 cap 3 times per day [Active]; hydrocodone-acetaminophen 7.5-325 mg Oral tab 1 tab every 4-6 hours [Active]; magnesium oxide 400 mg Oral cap [Active]; metolazone 5 mg Oral tab [Active]; metoprolol tartrate 100 mg Oral tab 1 tab 2 times per day [Active]; Multiple Vitamins Oral [Active]; potassium chloride 20 mEq Oral TbER 1 tab once daily [Active]; Vitamin B-12 500 mcg Oral tab [Active]; - PMHx: : Atrial Fib; COPD; Hypertension; iw - PSHx: :27 CABG; iw - Immunization history:: Adult Immunizations up to date. - Social history:: Smoking status: Patient uses tobacco products, denies chronic smoking, but will smoke occasionally. - Ebola Screening: : Patient negative for fever greater than or equal to 101.5 degrees Fahrenheit, and additional compatible Ebola Virus Disease symptoms Patient denies exposure to infectious person Patient denies travel to an Ebola-affected area in the 21 days before illness onset No symptoms or risks identified at this time. - Family history:: not pertinent. Screenin:30 Abuse screen: Denies threats or abuse. Nutritional screening: No deficits noted. em Tuberculosis screening: No symptoms or risk factors identified. Fall Risk None identified. Assessment: 09:30 General: Appears in no apparent distress. uncomfortable, Behavior is calm, cooperative, em appropriate for age, Denies fever. Pain: Complains of pain in right leg and left leg Pain currently is 2 out of 10 on a pain scale. Neuro: Level of Consciousness is awake, alert, obeys commands, Oriented to person, place, time, situation, Appropriate for age. Cardiovascular: Reports shortness of breath, Denies chest pain, Capillary refill < 3 seconds Patient's skin is warm and dry. Edema is 3+ to left ankle, left foot, right ankle and right foot pitting to left ankle, left foot, right ankle and right foot Rhythm is atrial fibrillation with rapid ventricular response. Respiratory: Airway is patent Respiratory effort is even, shallow, Respiratory pattern is tachypnea Breath sounds are diminished bilaterally. Derm: Skin is intact, is healthy with good turgor, Skin is pink, warm \T\ dry. Musculoskeletal: Capillary refill < 3 seconds, Range of motion: intact in all extremities. 10:30 Reassessment: Patient appears in no apparent distress at this time. Patient and/or em family updated on plan of care and expected duration. Pain level reassessed. respirations even unlabored, tachypneic, skin pink warm and dry Patient states symptoms have improved. 11:30 Reassessment: Patient appears in no apparent distress at this time. respirations even em unlabored, tachypneic, skin pink warm and dry. 13:30 Reassessment: Patient appears in no apparent distress at this time. Patient and/or em family updated on plan of care and expected duration. Pain level reassessed. respirations even unlabored, tachypneic, skin pink warm and dry Patient states symptoms have improved. 14:33 Reassessment: Patient appears in no apparent distress at this time. Patient and/or em family updated on plan of care and expected duration. Pain level reassessed. Patient is alert, oriented x 3, equal unlabored respirations, skin warm/dry/pink. respirations even unlabored, tachypneic, skin pink warm and dry Patient denies pain at this time. Patient states feeling better. Vital Signs: 09:27 BP 98 / 84; Pulse 117; Resp 24 S; Temp 98.6(O); Pulse Ox 91% on R/A; Weight 79.38 kg; iw Height 5 ft. 8 in. (172.72 cm); Pain 2/10; 09:45 BP 134 / 85; Pulse 118; Resp 30; Pulse Ox 97% on 2 lpm NC; em 10:30 BP 107 / 59; Pulse 113; Resp 28; Pulse Ox 97% on 2 lpm NC; em 11:30 BP 125 / 74; Pulse 105; Resp 30; Pulse Ox 100% on Nebulizer Mask; em 12:23 BP 119 / 58; Pulse 117; Resp 27; Pulse Ox 94% on 2 lpm NC; em 13:30 BP 97 / 57; Pulse 117; Resp 26; Pulse Ox 99% on R/A; Pain 0/10; em 14:37 BP 111 / 68; Pulse 110; Resp 24; Pulse Ox 96% on 2 lpm NC; Pain 0/10; em 09:27 Body Mass Index 26.61 (79.38 kg, 172.72 cm) iw ED Course: 09:14 Patient arrived in ED. mr 09:25 Triage completed. iw 09:29 Peter Peacock MD is Attending Physician. wendy 09:30 Arm band placed on. iw 09:30 Patient has correct armband on for positive identification. Placed in gown. Bed in low em position. Call light in reach. Side rails up X2. classroom monitor on. Pulse ox on. NIBP on. 09:35 Lj Mills, RN is Primary Nurse. em 09:35 Initial lab(s) drawn, by me, sent to lab. Inserted saline lock: 20 gauge in right em antecubital area, using aseptic technique. Blood collected. 09:41 XRAY Chest (1 view) In Process Unspecified. EDMS 09:43 EKG done, by automotive paint technician. reviewed by Peter Peacock MD. at1 11:59 John Ramos MD is Hospitalizing Provider. [facility] 14:45 No provider procedures requiring assistance completed. Patient admitted, IV remains in em place. Administered Medications: 09:44 Drug: Lasix 40 mg Route: IVP; Site: right antecubital; em 10:41 Follow up: Response: No adverse reaction em 09:46 Drug: Digoxin 0.5 mg Route: IVP; Site: right antecubital; em 10:41 Follow up: Response: No adverse reaction; No change in condition em 11:22 Drug: Potassium Effervescent Tablet 50 mEq Route: PO; em 12:24 Follow up: Response: No adverse reaction em 11:25 Drug: Xopenex 2.5 mg Route: Inhalation; em 12:24 Follow up: Response: No adverse reaction; Marked relief of symptoms em 11:25 Drug: AtroVENT Aerosol 0.5 mg Route: Inhalation; em 12:24 Follow up: Response: No adverse reaction; Marked relief of symptoms em 11:26 Drug: SOLU-Medrol 125 mg Route: IVP; Site: right antecubital; em 12:24 Follow up: Response: No adverse reaction em 11:27 Drug: Pepcid 20 mg Route: IVP; Site: right antecubital; em 12:25 Follow up: Response: No adverse reaction em 11:30 Drug: Potassium Chloride 20 mEq Route: IV; Rate: per protocol; Site: right antecubital; em 14:38 Follow up: Response: No adverse reaction; IV Status: Completed infusion; IV Intake: 50mlem Intake: 14:38 IV: 50ml; Total: 50ml. em Output: 10:41 Urine: 300ml (Voided); Total: 300ml. em 14:37 Urine: 800ml (Voided); Total: 1100ml. em Outcome: 12:02 Decision to Hospitalize by Provider. [facility] 14:45 Admitted to Tele accompanied by tech, via wheelchair, room 402, Report called to shelly Schumacher RN 14:45 Condition: good 14:45 Instructed on the need for admit, Demonstrated understanding of instructions. 14:54 Patient left the ED. iw Signatures: Dispatcher [employer] Peter Prieto MD MD cha Rivera, Anna mr MillsLj, ALMA RN em Peggy Ruggiero RN RN iw Jo Vasquez RN RN aa5 Estella Young, product mgmt dev manager EKG Tat1 Corrections: (The following items were deleted from the chart) 11:11 10:30 BP 107 / 59; Pulse 28bpm; Resp 16bpm; Pulse Ox 97% 2 lpm Nasal Cannula; em em 12:09 09:30 Cardiovascular: Reports shortness of breath, Denies chest pain, Capillary refill em < 3 seconds Patient's skin is warm and dry. Rhythm is atrial fibrillation with rapid ventricular response em 14:43 11:30 Reassessment: Patient appears in no apparent distress at this time. respirations em even unlabored, tachypneic, skin pink warm and dry em
--- NOTE | 2019-03-11 12:02 | EDPHYS ---
Physician Documentation [facility] Name: Tex Vergara Age: 63 yrs Sex: Male : 1955 Arrival Date: 03/11/2019 Time: : Bed 7 Private MD: ED Physician Peter Peacock HPI: 03/11 11:06 This 63 yrs old Male presents to ER via Wheelchair with complaints of wendy Shortness Of Breath, Leg Swelling. 11:06 The patient has shortness of breath at rest, with light activity. Onset: The wendy symptoms/episode began/occurred 3 day(s) ago. Duration: The symptoms are continuous, and are steadily getting worse. The patient's shortness of breath has no apparent modifying factors. Associated signs and symptoms: Pertinent positives: non-productive cough. Severity of symptoms: At their worst the symptoms were mild moderate in the emergency department the symptoms are unchanged. The patient has not experienced similar symptoms in the past. Historical: - Allergies: : No Known Allergies; iw - Home Meds: diltiazem HCl 120 mg Oral cpER 1 cap once daily [Active]; Eliquis 5 mg Oral tab 1 tab 2 iw times per day [Active]; folic acid 1 mg Oral tab 1 tab once daily [Active]; furosemide 40 mg Oral tab 1 tab 2 times per day [Active]; gabapentin 300 mg Oral cap 1 cap 3 times per day [Active]; hydrocodone-acetaminophen 7.5-325 mg Oral tab 1 tab every 4-6 hours [Active]; magnesium oxide 400 mg Oral cap [Active]; metolazone 5 mg Oral tab [Active]; metoprolol tartrate 100 mg Oral tab 1 tab 2 times per day [Active]; Multiple Vitamins Oral [Active]; potassium chloride 20 mEq Oral TbER 1 tab once daily [Active]; Vitamin B-12 500 mcg Oral tab [Active]; - PMHx: Atrial Fib; COPD; Hypertension; iw - PSHx: CABG; iw - Immunization history:: Adult Immunizations up to date. - Social history:: Smoking status: Patient uses tobacco products, denies chronic smoking, but will smoke occasionally. - Ebola Screening: : Patient negative for fever greater than or equal to 101.5 degrees Fahrenheit, and additional compatible Ebola Virus Disease symptoms Patient denies exposure to infectious person Patient denies travel to an Ebola-affected area in the 21 days before illness onset No symptoms or risks identified at this time. - Family history:: not pertinent. ROS: 11:06 Constitutional: Negative for fever, chills, and weight loss, Eyes: Negative for injury, wendy pain, redness, and discharge, ENT: Negative for injury, pain, and discharge, Neck: Negative for injury, pain, and swelling, Abdomen/GI: Negative for abdominal pain, nausea, vomiting, diarrhea, and constipation, Back: Negative for injury and pain, : Negative for injury, bleeding, discharge, and swelling, Skin: Negative for injury, rash, and discoloration, Neuro: Negative for headache, weakness, numbness, tingling, and seizure. 11:06 Cardiovascular: Positive for palpitations. 11:06 Respiratory: Positive for cough, shortness of breath, wheezing, inspiratory, expiratory. 11:06 Abdomen/GI: Positive for abdominal distension. 11:06 MS/extremity: Positive for swelling, of the right leg and left leg. Exam: 11:06 Constitutional: This is a well developed, well nourished patient who is awake, alert, wendy and in no acute distress. Head/Face: Normocephalic, atraumatic. Eyes: Pupils equal round and reactive to light, extra-ocular motions intact. Lids and lashes normal. Conjunctiva and sclera are non-icteric and not injected. Cornea within normal limits. Periorbital areas with no swelling, redness, or edema. ENT: Nares patent. No nasal discharge, no septal abnormalities noted. Tympanic membranes are normal and external auditory canals are clear. Oropharynx with no redness, swelling, or masses, exudates, or evidence of obstruction, uvula midline. Mucous membranes moist. Neck: Trachea midline, no thyromegaly or masses palpated, and no cervical lymphadenopathy. Supple, full range of motion without nuchal rigidity, or vertebral point tenderness. No Meningismus. Chest/axilla: Normal chest wall appearance and motion. Nontender with no deformity. No lesions are appreciated. Back: No spinal tenderness. No costovertebral tenderness. Full range of motion. Male : Normal genitalia with no discharge or lesions. Skin: Warm, dry with normal turgor. Normal color with no rashes, no lesions, and no evidence of cellulitis. Neuro: Awake and alert, GCS 15, oriented to person, place, time, and situation. Cranial nerves II-XII grossly intact. Motor strength 5/5 in all extremities. Sensory grossly intact. Cerebellar exam normal. Normal gait. Psych: Awake, alert, with orientation to person, place and time. Behavior, mood, and affect are within normal limits. 11:06 Cardiovascular: Rate: tachycardic, Rhythm: irregularly irregular, Pulses: Pulses are 4+ in bilateral radial, brachial, femoral, popliteal, posterior tibial and and dorsalis pedis arteries.. Heart sounds: normal, Edema: 3+ edema to level of left midcalf and right midcalf, JVD: is noted bilaterally, to 2 cm. Vital Signs: 09:27 BP 98 / 84; Pulse 117; Resp 24 S; Temp 98.6(O); Pulse Ox 91% on R/A; Weight 79.38 kg; iw Height 5 ft. 8 in. (172.72 cm); Pain 2/10; 09:45 BP 134 / 85; Pulse 118; Resp 30; Pulse Ox 97% on 2 lpm NC; em 10:30 BP 107 / 59; Pulse 113; Resp 28; Pulse Ox 97% on 2 lpm NC; em 11:30 BP 125 / 74; Pulse 105; Resp 30; Pulse Ox 100% on Nebulizer Mask; em 12:23 BP 119 / 58; Pulse 117; Resp 27; Pulse Ox 94% on 2 lpm NC; em 13:30 BP 97 / 57; Pulse 117; Resp 26; Pulse Ox 99% on R/A; Pain 0/10; em 14:37 BP 111 / 68; Pulse 110; Resp 24; Pulse Ox 96% on 2 lpm NC; Pain 0/10; em 09:27 Body Mass Index 26.61 (79.38 kg, 172.72 cm) iw MDM: 09:29 Patient medically screened. [facility] 11:09 Data reviewed: vital signs, nurses notes, lab test result(s), EKG, radiologic studies, wendy plain films. 03/11 09:32 Order name: Basic Metabolic Panel [facility] 03/11 09:32 Order name: CBC with Diff; Complete Time: 11:09 [facility] 03/11 09:32 Order name: LFT's; Complete Time: 11: [facility] 03/11 09:32 Order name: Magnesium; Complete Time: 11:09 [facility] 03/11 09:32 Order name: NT PRO-BNP; Complete Time: 11:09 wendy 03/11 09:32 Order name: PT-INR; Complete Time: 11:09 [facility] 03/11 09:32 Order name: Troponin (emerg Dept Use Only); Complete Time: 11:09 [facility] 03/11 09:32 Order name: XRAY Chest (1 view); Complete Time: 11:09 wendy 03/11 09:32 Order name: TSH; Complete Time: 11:09 [facility] 03/11 09:32 Order name: Basic Metabolic Panel; Complete Time: 11:09 ED[facility] 03/11 10:40 Order name: Urine Dipstick--Ancillary (enter results); Complete Time: 11:56 03/11 11:04 Order name: AMMONIA [facility] 03/11 09:32 Order name: EKG; Complete Time: 09:33 [facility] 03/11 09:32 Order name: Cardiac monitoring; Complete Time: 09:35 [facility] 03/11 09:32 Order name: EKG - Nurse/Tech; Complete Time: 09:36 [facility] 03/11 09:32 Order name: IV Saline Lock; Complete Time: 09:36 [facility] 03/11 09:32 Order name: Labs collected and sent; Complete Time: 09:36 [facility] 03/11 09:32 Order name: O2 Per Protocol; Complete Time: 09:35 [facility] 03/11 09:32 Order name: O2 Sat Monitoring; Complete Time: 09:35 [facility] 03/11 09:32 Order name: Urine Dipstick-Ancillary (obtain specimen); Complete Time: 10:42 [facility] Administered Medications: 09:44 Drug: Lasix 40 mg Route: IVP; Site: right antecubital; em 10:41 Follow up: Response: No adverse reaction em 09:46 Drug: Digoxin 0.5 mg Route: IVP; Site: right antecubital; em 10:41 Follow up: Response: No adverse reaction; No change in condition em 11:22 Drug: Potassium Effervescent Tablet 50 mEq Route: PO; em 12:24 Follow up: Response: No adverse reaction em 11:25 Drug: Xopenex 2.5 mg Route: Inhalation; em 12:24 Follow up: Response: No adverse reaction; Marked relief of symptoms em 11:25 Drug: AtroVENT Aerosol 0.5 mg Route: Inhalation; em 12:24 Follow up: Response: No adverse reaction; Marked relief of symptoms em 11:26 Drug: SOLU-Medrol 125 mg Route: IVP; Site: right antecubital; em 12:24 Follow up: Response: No adverse reaction em 11:27 Drug: Pepcid 20 mg Route: IVP; Site: right antecubital; em 12:25 Follow up: Response: No adverse reaction em 11:30 Drug: Potassium Chloride 20 mEq Route: IV; Rate: per protocol; Site: right antecubital; em 14:38 Follow up: Response: No adverse reaction; IV Status: Completed infusion; IV Intake: 50mlem Disposition: 03/11/19 12:02 Hospitalization ordered by John Ramos for Inpatient Admission. Preliminary diagnosis are Dyspnea, Pleural effusion in conditions classified elsewhere, Atrial fibrillation and flutter - with rvr, Edema, unspecified, Unspecified combined systolic (congestive) and diastolic (congestive) heart failure, Unspecified kidney failure, Chronic obstructive pulmonary disease with (acute) exacerbation. - Bed requested for Telemetry/MedSurg (Inpatient). - Status is Inpatient Admission. iw - Condition is Stable. - Problem is new. - Symptoms have improved. UTI on Admission? No Signatures: Dispatcher [employer] Peter Prieto MD MD cha Munoz, Edgar, RN RN em Williams, Irene, RN RN Davin Ziegler RN RN ja1 Corrections: (The following items were deleted from the chart) 12:06 12:02 Hospitalization Ordered by John Ramos MD for Inpatient Admission. Preliminary wendy diagnosis is Dyspnea; Pleural effusion in conditions classified elsewhere; Atrial fibrillation and flutter - with rvr; Edema, unspecified; Unspecified combined systolic (congestive) and diastolic (congestive) heart failure; Unspecified kidney failure. Bed requested for Telemetry/MedSurg (Inpatient). Status is Inpatient Admission. Condition is Stable. Problem is new. Symptoms have improved. UTI on Admission? No. wendy 14:22 12:06 03/11/2019 12:02 Hospitalization Ordered by John Ramos MD for Inpatient ja1 Admission. Preliminary diagnosis is Dyspnea; Pleural effusion in conditions classified elsewhere; Atrial fibrillation and flutter - with rvr; Edema, unspecified; Unspecified combined systolic (congestive) and diastolic (congestive) heart failure; Unspecified kidney failure; Chronic obstructive pulmonary disease with (acute) exacerbation. Bed requested for Telemetry/MedSurg (Inpatient). Status is Inpatient Admission. Condition is Stable. Problem is new. Symptoms have improved. UTI on Admission? No. wendy 14:54 14:22 03/11/2019 12:02 Hospitalization Ordered by John Ramos MD for Inpatient iw Admission. Preliminary diagnosis is Dyspnea; Pleural effusion in conditions classified elsewhere; Atrial fibrillation and flutter - with rvr; Edema, unspecified; Unspecified combined systolic (congestive) and diastolic (congestive) heart failure; Unspecified kidney failure; Chronic obstructive pulmonary disease with (acute) exacerbation. Bed requested for Telemetry/MedSurg (Inpatient). Status is Inpatient Admission. Condition is Stable. Problem is new. Symptoms have improved. UTI on Admission? No. ja1
[2019-03-11] MEDS ORDERED: TRAMADOL HCL 50 MG TAB PO PRN (14:11)
--- NOTE | 2019-03-11 14:17 | P.HP ---
Patient History Date of Service: 03/11/19 Reason for admission: Bilateral lower extremities swelling and pain History of Present Illness: Mr. Vergara is a 63-year-old male with a history of CHF, AFib on no oral anti coagulation with presented to the ER for complaints of increasing bilateral lower extremity edema and pain. Patient is on Lasix had formal eye reports compliance. He has maintained a low-sodium diet,however not a fluid restriction. he is unable to remember that except for timing of the increase in swelling of pain. Patient has been driving to [place] daily and has a sedentary lifestyle. He also endorses shortness of breath, orthopnea, PND. He denies any chest pain. He has a mild nonproductive cough. He denies any fever nor chills. He drinks 3-4 cans of beer due on the daily basis. Denies any prior history of DTs. Allergies No Known Allergies Allergy (Verified 05/15/18 11:25) Home Medications: Amoxicillin [Amoxil] 1 tab PO BID 06/12/17 Apixaban [Eliquis] 5 mg PO BID #60 tablet 06/12/17 Benzonatate 1 cap PO TIDP PRN 06/12/17 Cyanocobalamin [Vitamin B-12*] 500 mcg PO DAILY 06/12/17 Fluticasone Propionate [Flovent Diskus] 1 spray JELENA BID 06/12/17 Folic Acid 1 mg PO DAILY 06/12/17 Gabapentin [Gralise] 1 tab PO TID 06/12/17 Metoprolol Tartrate 50 mg PO BID #60 tablet 06/12/17 Potassium Gluconate 550 mg PO DAILY 06/12/17 Tramadol HCl [Ultram] 1 tab PO BIDP PRN 06/12/17 hydroCHLOROthiazide [Hydrochlorothiazide*] 12.5 mg PO DAILY 06/12/17 lisinopriL [Lisinopril] 1 tab PO DAILY 06/12/17 - Past Medical/Surgical History Diabetic: No -: HTN -: chronic back pain -: CHF -: Afib on OAC -: back -: open heart sx - Family History Family History: Reviewed- Non-Contributory - Social History Smoking Status: Current every day smoker Alcohol use: Yes CD- Drugs: No Caffeine use: Yes Review of Systems 10-point ROS is otherwise unremarkable Respiratory: Cough, Shortness of Breath, SOB with Excertion Cardiovascular: Orthopnea, Paroxysmal Noc. Dyspnea, Edema Physical Examination - Physical Exam General: Alert, In no apparent distress HEENT: Atraumatic, Normocephalic, PERRLA Neck: Supple, 2+ carotid pulse no bruit, JVD distended Respiratory: Diminished, Crackles/rales, Inspiratory wheezes Cardiovascular: Normal S1 S2, No rubs, Edema (3+ b/l le) Gastrointestinal: Normal bowel sounds, Soft and benign, Distended Musculoskeletal: No clubbing, Swelling Integumentary: No rashes, No breakdown Neurological: Normal gait, Normal speech, Sensation intact, Normal affect - Studies Laboratory Data (last 24 hrs) 03/11/19 09:35: PT 25.2 H, INR 2.20 03/11/19 09:35: WBC 12.4 H, Hgb 13.2 L, Hct 40.5, Plt Count 266 03/11/19 09:35: Sodium 138, Potassium 2.7 L*, BUN 38 H, Creatinine 1.40 H, Glucose 91, Magnesium 2.4 D, Total Bilirubin 5.7 H*, AST 25, ALT 15, Alkaline Phosphatase 109 Imagings Data: Chest Xray- Mild interstitial pulmonary edema is seen. Moderate right pleural effusion. Trace left pleural effusion. The heart is mildly enlarged in size. Aortic atherosclerosis. Sternotomy wires present. Assessment and Plan - Plan Mr Vergara is a 63-year-old presented with bilateral lower extremity swelling and pain. #Acute decompensated congestive heart failure (unknown type)-elevated BNP, chest x-ray with pulmonary vascular congestion. Patient is noncompliant with fluid restriction at home. Continues to drink heavily. -initiate ICU Lasix 40 mg b.i.d.. -monitor strict I's and o's, fluid restriction, low-salt diet. -Echocardiogram. -Trop is borderline elevated, will trend. He denies any chest pain. -interventional tech on consult. #Moderate RL Pleural effusion-will attempt to use diuretics, if no improvement, consult IR for thoracentesis -continue supplemental oxygen. #Bilateral lower extremity swelling - very significant. Patient however is on oral anti coagulation. -given significant high risk, venous Doppler to rule out acute DVT. - close monitoring. #Atrial fibrillation-rate is currently uncontrolled, remains between 100 - 120. -continue on beta-scarlett -continue on oral anticoagulation given high chads Vasc score #Alcohol abuse-denies any history of alcohol withdrawal while. Intends to reduce alcohol use. -will place on CIWA protocol. -replace multivitamin. -alcohol use may be driving atrial fibrillation, discussed extensively with patient. # tobacco use-smoking cessation strongly advised. # Leukocytosis-rule out underlining pneumonia. -monitor vital signs. -trend leukocytosis. May be reactive. #Hypokalemia-replaced by recheck BMP. #Acute kidney injury- likely prerenal azotemia in the setting of decompensated heart failure. -creatinine currently 1.4. Continue Lasix. -monitor input and output -avoid nephrotoxins. -trend creatinine. DVT prophylaxis-patient is currently on Eliquis. Patient is full code. Disposition-inpatient admission. - Advance Directives Does patient have a Living Will: No Does patient have a Durable POA for Healthcare: No
[2019-03-11] MEDS ORDERED: POTASSIUM CL SA 10 MEQ TAB PO ONE (14:25)
[2019-03-11 15:32] VITALS: BMI 26.6
[2019-03-11 16:07] LABS: Absolute Lymphocytes (CBC) 0.4 K/uL (0.7-4.9); Basophils % 0.3 % (0-1.3); Hematocrit 37.7 % (39.6-49.0); Lymphocytes % 3.7 % (15.3-44.8); MPV 9.3 fL (7.6-11.3); RBC Red Blood Cell Count 5.06 M/uL (4.33-5.43)
[2019-03-11] MEDS: FUROSEMIDE 40 MG/4 ML VIAL IV SCH (16:09)
[2019-03-11 16:39] LABS: Magnesium 2.1 mg/dL (1.8-2.4); Troponin I 0.05 ng/mL (0.0-0.045)
[2019-03-11 16:46] LABS: Blood Morphology Comment NOTED (NOT SEEN); Platelet Estimate ADEQ; Urine White Blood Cell Casts OK
[2019-03-11 16:47] LABS: Poikilocytosis 1+
[2019-03-11 18:18] LABS: Potassium 3.1 mmol/L (3.5-5.1)
--- NOTE | 2019-03-11 18:35 | RAD REPORT ---
EXAM DESCRIPTION: US - Extrem Venous W Compress Mat - 03/11/2019 6:29 pm CLINICAL HISTORY: bilateral LE swelling Bilateral leg edema and swelling. COMPARISON: No comparisons TECHNIQUE: Real-time sonographic interrogation of the left and right lower extremity deep venous sys tems was performed. FINDINGS: Normal compressibility, flow augmentation, phasic flow and spontaneous flow is identified in both the left and right lower extremity deep venous systems. IMPRESSION: No sonographic evidence of left or right lower extremity deep venous thrombosis.
[2019-03-11] MEDS: HOME MED 1 EA UNK (Fluticasone Propionate [Flovent Diskus] 1 SPRAY) NAS SCH (20:41)
[2019-03-11] MEDS: GABAPENTIN 300 MG CAP PO SCH (20:42)
[2019-03-11] MEDS: APIXABAN 5 MG TABLET PO SCH (20:42)
--- NOTE | 2019-03-11 20:56 | EKG ---
Test Date: 2019-03-11 Test Time: 09:31:00 Claim Trainee: ALLISON MEASUREMENT RESULTS: Intervals: Rate: 117 HI: QRSD: 118 QT: 376 QTc: 524 [place]: P: HI: QRS: -3 T: 156 INTERPRETIVE STATEMENTS: Atrial fibrillation with rapid ventricular response with premature ventricular or aberrantly conducted complexes Left ventricular hypertrophy with QRS widening ST & T wave abnormality, consider lateral ischemia or digitalis effect Abnormal ECG Compared to ECG 01/21/2019 12:33:37 Ventricular premature complex(es) now present Possible ischemia now present Left bundle-branch block no longer present Prolonged QT interval no longer present ST (T wave) deviation still present Electronically Signed On 03-11-19 20:54:57 TOBACCO DRYING MACHINE OPERATOR by Gabriel Monsalve
[2019-03-11] MEDS ORDERED: METOPROLOL TAR 50 MG TAB PO SCH (21:00)
[2019-03-11] MEDS ORDERED: GABAPENTIN PO SCH (21:00)
[2019-03-12 04:23] LABS: Absolute Lymphocytes (CBC) 0.9 K/uL (0.7-4.9); Basophils % 0.1 % (0-1.3); Hematocrit 41.8 % (39.6-49.0); Lymphocytes % 5.6 % (15.3-44.8); MPV 9.4 fL (7.6-11.3); RBC Red Blood Cell Count 5.56 M/uL (4.33-5.43)
[2019-03-12 04:39] LABS: Magnesium 2.3 mg/dL (1.8-2.4); Potassium 3.4 mmol/L (3.5-5.1)
[2019-03-12] MEDS ORDERED: POTASSIUM CL SA 10 MEQ TAB PO ONE ×2 (08:18→21:29)
[2019-03-12] MEDS: FUROSEMIDE 40 MG/4 ML VIAL IV SCH ×2 (09:00→17:45)
[2019-03-12] MEDS: POTASSIUM GLUCONATE 550 MG PO SCH (09:00)
[2019-03-12] MEDS: HOME MED 1 EA UNK (Fluticasone Propionate [Flovent Diskus] 1 SPRAY) NAS SCH ×2 (09:00→21:00)
[2019-03-12 09:30] LABS: Arterial Blood Carboxyhemoglob 2.2 % (0-1.5); Blood Gas Oxyhemoglobin 89.5 % (94-97)
[2019-03-12] MEDS: METOPROLOL TAR 50 MG TAB PO SCH ×2 (10:05→21:18)
[2019-03-12] MEDS: APIXABAN 5 MG TABLET PO SCH ×2 (10:13→21:18)
[2019-03-12] MEDS: CYANOCOBALAMIN 1,000 MCG TAB PO SCH (10:13)
[2019-03-12] MEDS: GABAPENTIN 300 MG CAP PO SCH ×3 (10:13→21:18)
[2019-03-12] MEDS: FOLIC ACID 1 MG TABLET PO SCH (10:14)
[2019-03-12] MEDS: DILTIAZEM HCL 120 MG SR CAP PO SCH (10:24)
[2019-03-12] MEDS: CEFTRIAXONE/SWI 1gm 1 GM/10 ML SYR IV SCH (10:26)
[2019-03-12] MEDS: AZITHROMYCIN IV 500 MG in NA CHLORIDE 0.9% 250 ML IVPB SCH (10:26)
--- NOTE | 2019-03-12 11:56 | P.PN ---
Subjective Date of Service: 03/12/19 Chief Complaint: Bilateral lower extremities swelling and pain Improving. Less SOB. Off NC and tolerating. Physical Examination - Vital Signs Temperature: 97.0 F Blood Pressure: 111/64 Pulse: 90 Respirations: 28 Pulse Ox (%): 93 - Physical Exam General: Alert, In no apparent distress HEENT: Atraumatic, PERRLA, EOMI Neck: Supple, JVD not distended Respiratory: Diminished, Crackles/rales Cardiovascular: Regular rate/rhythm, Normal S1 S2, Edema Gastrointestinal: Normal bowel sounds, No tenderness Musculoskeletal: No tenderness, Swelling Integumentary: No rashes Neurological: Normal speech, Normal tone, Normal affect Lymphatics: No axilla or inguinal lymphadenopathy - Studies Laboratory Tests 03/12/19 03/12/19 03:41 03:41 WBC 16.2 H D RBC 5.56 H Hgb 13.7 Hct 41.8 MCV 75.3 L MCH 24.6 L Plt Count 341 D Sodium 141 Potassium 3.4 L Chloride 94 L Carbon Dioxide 43 H* Creatinine 1.35 H Glucose 138 H Medications List Reviewed: Yes Assessment And Plan - Plan Mr Vergara is a 63-year-old presented with bilateral lower extremity swelling and pain. #Acute decompensated congestive heart failure (unknown type)-elevated BNP, chest x-ray with pulmonary vascular congestion. Patient is noncompliant with fluid restriction at home. Continues to drink alcohol heavily. -Continue Lasix 40 mg IV b.i.d.. -monitor strict I's and o's, fluid restriction, low-salt diet. -Echocardiogram. -Trop is borderline elevated, will trend. He denies any chest pain. -boom crane operator on consult. #Moderate RL Pleural effusion-will attempt to use diuretics, if no improvement, consult IR for thoracentesis -continue supplemental oxygen. #Bilateral lower extremity swelling - ruled out DVT #Atrial fibrillation-rate is currently uncontrolled, remains between 100 - 120. -continue on beta-scarlett -continue on oral anticoagulation given high chads Vasc score #Alcohol abuse-denies any history of alcohol withdrawal. Intends to reduce alcohol use. -on CIWA protocol. -replace multivitamin. -alcohol use may be driving atrial fibrillation, discussed extensively with patient. # tobacco use-smoking cessation strongly advised. # CAP- leukocytosis. -Procal elevated -initiated on abx -duoneb, pulm toileting -monitor vital signs. #Hypokalemia-replaced. #Acute kidney injury- likely prerenal azotemia in the setting of decompensated heart failure. -creatinine currently 1.3. Continue Lasix. -monitor input and output -avoid nephrotoxins. -trend creatinine. DVT prophylaxis-patient is currently on Eliquis. Patient is full code. Disposition-pending clinical improvement.
--- NOTE | 2019-03-12 12:31 | ECHO ---
HEIGHT: 5 ft 8 in WEIGHT: 175 lb 0 oz DATE OF STUDY: 03/12/[address]: Gabriel Monsalve MD 2-DIMENSIONAL: YES M.MODE: YES DOPPLER: YES COLOR FLOW: YES TDS: YES PORTABLE: NO DEFINITY: NO BUBBLE STUDY: NO DIAGNOSIS: CONGESTIVE HEART FAILURE CARDIAC HISTORY: CATHERIZATION: NO SURGERY: YES PROSTHETIC VALVE: NO PACEMAKER: NO MEASUREMENTS (cm) DIASTOLIC (NORMALS) SYSTOLIC (NORMALS) IVSd 1.2 (0.6-1.2) LA Diam (1.9-4.0) LVEF 68% LVIDd 3.3 (3.5-5.7) LVIDs 2.1 (2.0-3.5) %FS 37% LVPWd 1.4 (0.6-1.2) Ao Diam 3.1 (2.0-3.7) 2 DIMENSIONAL ASSESSMENT: RIGHT ATRIUM: NORMAL LEFT ATRIUM: DILATED RIGHT VENTRICLE: NORMAL LEFT VENTRICLE: NORMAL TRICUSPID VALVE: NORMAL MITRAL VALVE: SEE COMMENTS PULMONIC VALVE: NORMAL AORTIC VALVE: BIOPROSTHETIC, SCLEROTIC PERICARDIAL EFFUSION: NONE AORTIC ROOT: NORMAL LEFT VENTRICULAR WALL MOTION: NORMAL. DOPPLER/COLOR FLOW: MILD TRICUSPID REGURGITATION. NORMAL RIGHT VENTRICULAR SYSTOLIC PRESSURE. NO AORTIC REGURGITATION OR AORTIC STENOSIS. COMMENTS: NORMAL LEFT VENTRICULAR EJECTION FRACTION. DILATED LEFT ATRIUM. MITRAL VALVE ANNULUS IS THICKENED, CONSISTENT WITH MITRAL ANNULAR RING SURGERY. BIOPROSTHETIC AORTIC VALVE WITH NO AORTIC STENOSIS OR AORTIC REGURGITATION. TECHNOLOGIST: RENNY BRIONES
--- NOTE | 2019-03-12 13:16 | CON ---
History Of Present Illness: Mr. Vergara came to the hospital with leg swelling and shortness of breath . Mr. Vergara has a history of chronic atrial fibrillation, history of bioprosthetic aortic valve repl acement, ring annuloplasty repair without bypasses sometime in the remote past. He has chronic heart failure and seems to be poorly compliant with medications. He gets Lasix doses and it does not soun d like he is following a low sodium diet. 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 He was a cigarette smoker in the past, presently not. Last time, we did an echocardiogram, it was in May 2017, it showed that the bioprosthetic aortic valve was good. Eject ion fraction was 5. He had a cardioversion in April 2017, but immediately went back into atrial fibr illation, so we consider chronic atrial fibrillation and is treated with Eliquis, diltiazem, and meto prolol to control the heart rate. He is on a low dose of oral Lasix 40 mg twice a day, but he still manages to get quite short of breath. Physical Examination: General: He is alert, oriented, comfortable, not in acute distress. Lungs: Reveal markedly decreased breath sounds on the right up in the apex. There are some crackles on the left. Heart: Irregularly irregular. There is an abnormal heart tone consistent with a bioprosthetic aorti c valve. No diastolic or systolic murmur is appreciated. Abdomen: Soft. Extremities: 2+ edema. Imaging: A chest x-ray reveals sternotomy wires reveal what I considered to be a large right pleural effusion, small left pleural effusion. No infiltrate. Assessment And Plan: I think the patient has a pleural effusion, probably from heart failure. I am going to ask that Dr. Pierre to see him and consider tapping that. I think if we given the right a mount of diuretics, it is unlikely were to recur, but it is really fairly sizable effusion. We will see what Dr. Pierre thinks of it, but I think it would help his respiratory problem, overall status to tap the fluid, but he needs to be on a significant diuresis long-term and follow a low-sodium t. Troponin of 0.05. He really does not like to be concerned that this is an acute coronary syndrom e, patient may have ST changes or chest pain reveal that to make us call this an PR. MITCHELL/ALICE Voice ID: [id number] Report ID: [id number]
[2019-03-12] MEDS: ALBUTEROL 2.5 MG/3 ML NEB SOL NEB SCH ×2 (13:52→22:00)
[2019-03-13] MEDS: ALBUTEROL 2.5 MG/3 ML NEB SOL NEB SCH ×4 (02:15→20:30)
[2019-03-13 04:33] LABS: Absolute Lymphocytes (CBC) 0.9 K/uL (0.7-4.9); Basophils % 0.1 % (0-1.3); Hematocrit 37.6 % (39.6-49.0); Lymphocytes % 5.4 % (15.3-44.8); MPV 9.6 fL (7.6-11.3); RBC Red Blood Cell Count 4.99 M/uL (4.33-5.43)
[2019-03-13 04:56] LABS: Potassium 3.5 mmol/L (3.5-5.1)
[2019-03-13 05:19] LABS: Blood Morphology Comment NOTED (NOT SEEN); Burr Cells 2+; Platelet Estimate ADEQ
[2019-03-13] MEDS: POTASSIUM GLUCONATE 550 MG PO SCH (07:29)
[2019-03-13] MEDS: HOME MED 1 EA UNK (Fluticasone Propionate [Flovent Diskus] 1 SPRAY) NAS SCH ×2 (07:29→20:35)
[2019-03-13] MEDS: APIXABAN 5 MG TABLET PO SCH (07:52)
[2019-03-13] MEDS: DILTIAZEM HCL 120 MG SR CAP PO SCH (07:52)
[2019-03-13] MEDS: FOLIC ACID 1 MG TABLET PO SCH (07:53)
[2019-03-13] MEDS: GABAPENTIN 300 MG CAP PO SCH ×3 (07:53→20:34)
[2019-03-13] MEDS: CEFTRIAXONE/SWI 1gm 1 GM/10 ML SYR IV SCH (07:54)
[2019-03-13] MEDS: AZITHROMYCIN IV 500 MG in NA CHLORIDE 0.9% 250 ML IVPB SCH (07:55)
[2019-03-13] MEDS: METOPROLOL TAR 50 MG TAB PO SCH ×2 (07:56→20:39)
[2019-03-13] MEDS: CYANOCOBALAMIN 1,000 MCG TAB PO SCH (08:00)
[2019-03-13] MEDS: FUROSEMIDE 40 MG/4 ML VIAL IV SCH ×2 (08:00→16:33)
--- NOTE | 2019-03-13 12:20 | P.PN ---
Subjective Date of Service: 03/13/19 Chief Complaint: Bilateral lower extremities swelling and pain No significant improvement in last 24 hours. Afebrile Physical Examination - Vital Signs Temperature: 97.9 F Blood Pressure: 108/64 Pulse: 87 Respirations: 18 Pulse Ox (%): 96 - Physical Exam General: Alert, In no apparent distress HEENT: Atraumatic, PERRLA, EOMI Neck: Supple, JVD not distended Respiratory: Diminished, Expiratory wheezes, Rhonchi/gurgles Cardiovascular: Regular rate/rhythm, Normal S1 S2, Edema Gastrointestinal: Normal bowel sounds, No tenderness Musculoskeletal: No swelling, No tenderness Integumentary: No rashes Neurological: Normal speech, Normal tone, Normal affect Lymphatics: No axilla or inguinal lymphadenopathy - Studies Medications List Reviewed: Yes Assessment And Plan - Plan Mr Vergara is a 63-year-old presented with bilateral lower extremity swelling and pain. #Acute decompensated congestive heart failure (unknown type)-elevated BNP, chest x-ray with pulmonary vascular congestion. Patient is noncompliant with fluid restriction at home. -Continue Lasix 40 mg IV b.i.d.. -monitor strict I's and o's, fluid restriction, low-salt diet. -Echocardiogram. -Trop is borderline elevated, will trend. He denies any chest pain. -car chaser on consult. #Moderate RL Pleural effusion- -continue supplemental oxygen. -Repeat Chest US today. hold eliquis - pulm on consult #Bilateral lower extremity swelling - ruled out DVT #Atrial fibrillation-rate is currently uncontrolled, remains between 100 - 120. -continue on beta-scarlett -hold on oral anticoagulation given high chads Vasc score #Alcohol abuse-denies any history of alcohol withdrawal. Intends to reduce alcohol use. -on CIWA protocol. -replace multivitamin. -alcohol use may be driving atrial fibrillation, discussed extensively with patient. # tobacco use-smoking cessation strongly advised. # CAP- leukocytosis. -Procal elevated -initiated on abx; will escalate given worsening leukocytosis -cher nichole toileting -monitor vital signs. #Hypokalemia-replaced. #Acute kidney injury- likely prerenal azotemia in the setting of decompensated heart failure. -improved. Continue Lasix. -monitor input and output -avoid nephrotoxins. -trend creatinine. DVT prophylaxis-SCD Patient is full code. Disposition-pending clinical improvement.
[2019-03-13] MEDS: VANCOMYCIN 1.5 GM in NA CHLORIDE 0.9% 500 ML IVPB SCH (13:00)
--- NOTE | 2019-03-13 13:34 | RAD REPORT ---
EXAM DESCRIPTION: US - Chest - 03/13/2019 1:28 pm CLINICAL HISTORY: evaluate pleural effusion COMPARISON: Chest Single View dated 03/11/2019 FINDINGS: Bilateral pleural effusions are present, small on the left and moderate on the right. Ther e are multiple thick septa throughout the effusions with atelectatic lung compatible with significant loculation. IMPRESSION: Significantly loculated pleural effusions are present, larger on the right.
[2019-03-13] MEDS: PIPER/TAZO/NS 3.375gm 3.375 GM/100 ML BAG IVPB SCH (16:00)
--- NOTE | 2019-03-13 20:55 | PN ---
Date of Progress Note: 03/13/2019 History: Mr. Vergara was admitted on March 11, 2019, with congestive heart failure. He is on calciu m channel blockers, beta blockers, Eliquis for atrial fibrillation. He has bilateral pleural effusio n, probably secondary to congestive heart failure. Echocardiogram showed normal ejection fraction, d iastolic dysfunction. He is status post bioprosthetic aortic valve replacement that appeared to be n ormal. He is on appropriate regimen from a CHF standpoint. Dr. Pierre's consult is pending. Ther e is a possibility that he may need thoracentesis. We will leave that up to Dr. Pierre. From a ca rdiac standpoint, we will continue present regimen. LAY/ALICE Voice ID: [id number] Report ID: [id number]
[2019-03-14] MEDS: ALBUTEROL 2.5 MG/3 ML NEB SOL NEB SCH ×2 (01:45→08:00)
[2019-03-14] MEDS: PIPER/TAZO/NS 3.375gm 3.375 GM/100 ML BAG IVPB SCH ×3 (01:55→17:21)
[2019-03-14 05:20] LABS: Potassium 3.1 mmol/L (3.5-5.1)
[2019-03-14] MEDS: VANCOMYCIN 1.5 GM in NA CHLORIDE 0.9% 500 ML IVPB SCH (07:58)
[2019-03-14] MEDS: POTASSIUM GLUCONATE 550 MG PO SCH (09:00)
[2019-03-14] MEDS: HOME MED 1 EA UNK (Fluticasone Propionate [Flovent Diskus] 1 SPRAY) NAS SCH ×2 (09:00→21:00)
[2019-03-14 09:33] LABS: Absolute Lymphocytes (CBC) 1.1 K/uL (0.7-4.9); Basophils % 0.5 % (0-1.3); Hematocrit 40.5 % (39.6-49.0); Lymphocytes % 7.4 % (15.3-44.8); MPV 9.3 fL (7.6-11.3); RBC Red Blood Cell Count 5.31 M/uL (4.33-5.43)
[2019-03-14] MEDS: FOLIC ACID 1 MG TABLET PO SCH (09:49)
[2019-03-14] MEDS: FUROSEMIDE 40 MG/4 ML VIAL IV SCH ×2 (09:49→17:21)
[2019-03-14] MEDS: GABAPENTIN 300 MG CAP PO SCH ×3 (09:49→20:49)
[2019-03-14] MEDS: DILTIAZEM HCL 120 MG SR CAP PO SCH (09:49)
[2019-03-14] MEDS: METOPROLOL TAR 50 MG TAB PO SCH ×2 (09:49→20:49)
[2019-03-14] MEDS: CYANOCOBALAMIN 1,000 MCG TAB PO SCH (09:51)
[2019-03-14] MEDS: METOLAZONE 5 MG TABLET PO SCH (09:53)
[2019-03-14 10:23] LABS: Anisocytosis 1+; Blood Morphology Comment NOTED (NOT SEEN); Platelet Estimate ADEQ; Poikilocytosis 1+; Target Cells 1+
--- NOTE | 2019-03-14 10:33 | P.PN ---
Subjective Date of Service: 03/14/19 Chief Complaint: Bilateral lower extremities swelling and pain Stable, slow improvement. Afebrile Physical Examination - Vital Signs Temperature: 97 F Blood Pressure: 110/62 Pulse: 102 Respirations: 18 Pulse Ox (%): 92 - Physical Exam General: Alert, In no apparent distress HEENT: Atraumatic, PERRLA, EOMI Neck: Supple, JVD not distended Respiratory: Diminished, Crackles/rales, Expiratory wheezes Cardiovascular: Normal S1 S2, Edema, Irregular heart rate/rhythm Gastrointestinal: Normal bowel sounds, No tenderness Musculoskeletal: No tenderness, Swelling Integumentary: No rashes Neurological: Normal speech, Normal tone, Normal affect Lymphatics: No axilla or inguinal lymphadenopathy - Studies Laboratory Tests 03/14/19 03/14/19 04:26 09:11 WBC 15.2 H Hgb 13.1 L MCV 76.2 L RDW 16.2 H Plt Count 386 Sodium 141 Potassium 3.1 L Carbon Dioxide 41 H* BUN 36 H Creatinine 1.06 Estimated GFR 70 L Calcium 8.1 L Microbiology Data (last 24 hrs): Microbiology 03/13/19 13:58 Blood - Blood Anaerobic Blood Culture - Final Medications List Reviewed: Yes Assessment And Plan - Plan Mr Vergara is a 63-year-old presented with bilateral lower extremity swelling and pain. #Acute decompensated congestive heart failure preserved EF-elevated BNP, chest x -ray with pulmonary vascular congestion. Patient is noncompliant with fluid restriction at home. -Continue Lasix 40 mg IV b.i.d.; metolazone -monitor strict I's and o's, fluid restriction, low-salt diet. -Echocardiogram report noted -Nursing not recording output accurately -Trop is borderline elevated. He denies any chest pain. -malt house kiln operator on consult. #Moderate RL Pleural effusion- -continue supplemental oxygen. -for thoracentesis, Eliquis is on hold - pulm on consult #Bilateral lower extremity swelling - ruled out DVT #Atrial fibrillation-rate is currently uncontrolled, remains between 100 - 120. -continue on beta-scarlett -hold on oral anticoagulation given high chads Vasc score #Alcohol abuse-denies any history of alcohol withdrawal. Intends to reduce alcohol use. -on CIWA protocol. -replace multivitamin. -alcohol use may be driving atrial fibrillation, discussed extensively with patient. # tobacco use-smoking cessation strongly advised. # CAP- leukocytosis. -Procal elevated -abx escalated to broad spectrum due to persistent leukocytosis, now improving -cher nichole toileting -monitor vital signs. #Hypokalemia-replaced. #Acute kidney injury- likely prerenal azotemia in the setting of decompensated heart failure. -improved. Continue Lasix. -monitor input and output -avoid nephrotoxins. -improved. #Metabolic alkalosis- compensatory for chronic resp acidosis. DVT prophylaxis-SCD Patient is full code. Disposition-pending clinical improvement.
--- NOTE | 2019-03-14 12:43 | P.CNS ---
Date of Consult: 03/14/19 Reason for Consult: Pleural effusion Chief Complaint: Bilateral lower extremities swelling and pain History of Present Illness: Patient is 63 years of age evaluated by me for a right-sided pleural effusion very poor historian he said he came to the emergency room as he felt funny this found to have lower extremity edema with significant right-sided pleural effusion denies any shortness of breath cough sputum hemoptysis chest pain no fever or chills Patient has atrial fibrillation is anti coagulated blood cultures are negative Allergies No Known Allergies Allergy (Verified 05/15/18 11:25) Home Medications: Apixaban [Eliquis] 5 mg PO BID 03/11/19 Cyanocobalamin (Vitamin B-12) [Vitamin B-12] 500 mcg PO DAILY 03/11/19 Folic Acid 1 mg PO DAILY 03/11/19 Furosemide 40 mg PO BID 03/11/19 Gabapentin 300 mg PO TID 03/11/19 Hydrocodone Bit/Acetaminophen [Hydrocodon-Acetaminoph 7.5-325] 1 tab PO Q6HP PRN 03/11/19 Magnesium Oxide 400 mg PO DAILY 03/11/19 Metoprolol Tartrate 100 mg PO BID 03/11/19 Multivitamin [Multivitamins] 1 cap PO DAILY 03/11/19 Potassium Chloride [K-Dur] 40 meq PO DAILY 03/11/19 dilTIAZem HCL [Diltiazem HCl] 120 mg PO DAILY 03/11/19 metOLazone [Metolazone] 5 mg PO SEECOM 03/11/19 - Past Medical/Surgical History Diabetic: No -: Hypertension -: Chronic back pain -: CHF -: Atrial Fibrillation -: Mild Stroke -: Back surgery -: CABG - Family History Mother Medical History: Heart disease Notes: Multiple strokes - Social History Smoking Status: Current some day smoker Alcohol use: Yes CD- Drugs: No Caffeine use: Yes Place of Residence: Home Review of Systems 10-point ROS is otherwise unremarkable General: Weakness Cardiovascular: Edema Physical Examination Temp Pulse Resp BP Pulse Ox 97 F 102 H 18 110/62 92 03/14/19 10:33 03/14/19 10:33 03/14/19 10:33 03/14/19 10:33 03/14/19 10:33 General: Alert, In no apparent distress Neck: Supple Respiratory: Diminished (Diminished air entry the right base) Cardiovascular: Normal pulses, Normal S1 S2, Edema Gastrointestinal: Normal bowel sounds, Soft and benign - Problems (1) Pleural effusion Current Visit: Yes Status: Acute Plan: Patient is 63 years of age admitted with worsening dyspnea lower extremity edema was found to have a worsening of his right-sided pleural effusion sick chronic pleural effusion shows multi loculation patient has a mild microcytic anemia white count is elevated vital signs stable no fever patient has had repair to was both his mitral and aortic valve hypoxic hypercapnic presumed underlying COPD blood cultures negative continue with the present antibiotics will need a thoracentesis patient is on Eliquis which will be placed on a hold he does have a multi loculated effusion by ultrasound and have radiology do ultrasound-guided thoracentesis planned for Sunday may have underlying COPD I have added schedule bronchodilators
[2019-03-14] MEDS ORDERED: ALBUTEROL 2.5 MG/3 ML NEB SOL NEB PRN (12:49)
[2019-03-14] MEDS ORDERED: POTASSIUM CL SA 10 MEQ TAB PO ONE (13:10)
[2019-03-14] MEDS: IPRATROPIUM BROM 0.5MG/2.5ML NEB SCH ×2 (15:55→23:30)
[2019-03-14] MEDS ORDERED: chlordiazePOXIDE HCl 25 MG CAP PO SCH (18:00)
[2019-03-14] MEDS: chlordiazePOXIDE HCl 5 MG CAP PO SCH (20:50)
[2019-03-14] MEDS: ARFORMOTEROL TARTRATE 15 MCG/2 ML VIAL.NEB NEB SCH (23:30)
[2019-03-15] MEDS: VANCOMYCIN 1.5 GM in NA CHLORIDE 0.9% 500 ML IVPB SCH ×2 (00:51→19:42)
[2019-03-15] MEDS: PIPER/TAZO/NS 3.375gm 3.375 GM/100 ML BAG IVPB SCH ×3 (00:51→17:00)
[2019-03-15 07:02] LABS: Potassium 3.4 mmol/L (3.5-5.1)
[2019-03-15] MEDS: IPRATROPIUM BROM 0.5MG/2.5ML NEB SCH ×2 (07:50→15:30)
[2019-03-15] MEDS: ARFORMOTEROL TARTRATE 15 MCG/2 ML VIAL.NEB NEB SCH ×2 (07:50→21:10)
[2019-03-15] MEDS: METOPROLOL TAR 50 MG TAB PO SCH ×2 (08:46→20:30)
[2019-03-15] MEDS: FUROSEMIDE 40 MG/4 ML VIAL IV SCH ×2 (08:46→17:16)
[2019-03-15] MEDS: CYANOCOBALAMIN 1,000 MCG TAB PO SCH (08:46)
[2019-03-15] MEDS: FOLIC ACID 1 MG TABLET PO SCH (08:46)
[2019-03-15] MEDS: GABAPENTIN 300 MG CAP PO SCH ×3 (08:46→20:30)
[2019-03-15] MEDS: DILTIAZEM HCL 120 MG SR CAP PO SCH (08:52)
[2019-03-15] MEDS: chlordiazePOXIDE HCl 5 MG CAP PO SCH ×2 (08:52→13:26)
[2019-03-15] MEDS: POTASSIUM GLUCONATE 550 MG PO SCH (08:53)
[2019-03-15] MEDS: HOME MED 1 EA UNK (Fluticasone Propionate [Flovent Diskus] 1 SPRAY) NAS SCH ×2 (08:53→20:30)
[2019-03-15 11:36] LABS: Absolute Lymphocytes (CBC) 0.9 K/uL (0.7-4.9); Basophils % 0.3 % (0-1.3); Hematocrit 42.6 % (39.6-49.0); MPV 9.1 fL (7.6-11.3)
[2019-03-15 11:55] LABS: Blood Morphology Comment NOT SEEN (NOT SEEN); Platelet Estimate ADEQ
--- NOTE | 2019-03-15 13:12 | P.PN ---
Subjective Date of Service: 03/15/19 Chief Complaint: Bilateral lower extremities swelling and pain Subjective: Other (more confused, fidgety) Disoriented. Confused, answered minimal question Physical Examination - Vital Signs Temperature: 97.8 F Blood Pressure: 160/80 Pulse: 72 Respirations: 20 Pulse Ox (%): 95 - Physical Exam General: Alert, Confused HEENT: Atraumatic, PERRLA, EOMI Neck: Supple, JVD distended Respiratory: Diminished, Crackles/rales, Inspiratory wheezes Cardiovascular: Normal S1 S2, Irregular heart rate/rhythm Gastrointestinal: Normal bowel sounds, No tenderness Musculoskeletal: No tenderness Integumentary: No rashes Neurological: Other (confused, tremors) Lymphatics: No axilla or inguinal lymphadenopathy - Studies Laboratory Tests 03/15/19 03/15/19 05:30 11:25 MCV 76.1 L MCH 24.5 L RDW 16.6 H Neutrophils % 83.5 H Sodium 142 Potassium 3.4 L Carbon Dioxide 42 H* Estimated GFR 76 L Calcium 8.1 L Medications List Reviewed: Yes Assessment And Plan - Plan Mr Vergara is a 63-year-old presented with bilateral lower extremity swelling and pain. #Acute decompensated congestive heart failure preserved EF-elevated BNP, chest x -ray with pulmonary vascular congestion. Patient was noncompliant with fluid restriction at home. -Continue Lasix 40 mg IV b.i.d.; metolazone -monitor strict I's and o's, fluid restriction, low-salt diet. -Echocardiogram report noted -Nursing not recording output accurately -Trop is borderline elevated. He denies any chest pain. 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 #Moderate RL Pleural effusion- -continue supplemental oxygen. -for thoracentesis, planned on sunday, Ramosis is on hold - pulm on consult #Bilateral lower extremity swelling - ruled out DVT #Atrial fibrillation-rate is currently controlled. -continue on beta-scarlett -hold on oral anticoagulation given high chads Vasc score #Alcohol abuse-denies any history of alcohol withdrawal. Intends to reduce alcohol use. -now on obvious withdrawal. On CIWA monitoring -Librium -replace multivitamin. -alcohol use may be driving atrial fibrillation, discussed extensively with patient. # tobacco use-smoking cessation strongly advised. # CAP- leukocytosis. -Procal elevated -abx escalated to broad spectrum due to persistent leukocytosis. suspect Pleural effusion may be parapneumonic -duoneb, pulm toileting -monitor vital signs. #Hypokalemia-replaced. #Acute kidney injury- likely prerenal azotemia in the setting of decompensated heart failure. -improved. Continue Lasix. -monitor input and output -avoid nephrotoxins. -improved. #Metabolic alkalosis- compensatory for chronic resp acidosis. -worsening. will give 1 dose of diamox. DVT prophylaxis-SCD Patient is full code. Disposition-pending clinical improvement.
[2019-03-15] MEDS ORDERED: ACETAZOLAMIDE 500 MG IV IV ONE (14:00)
[2019-03-15 18:32] LABS: Potassium 2.9 mmol/L (3.5-5.1)
[2019-03-15] MEDS: KCL 20 MEQ/100 mL IVPB 20 MEQ/100 ML BAG IV SCH ×2 (20:29→22:37)
[2019-03-15] MEDS: ENOXAPARIN 80 MG/0.8 ML SQ SCH (20:30)
[2019-03-15] MEDS ORDERED: NA CHLORIDE 0.9% 500 ML ONE (22:18)
[2019-03-15 23:42] LABS: Arterial Blood Carboxyhemoglob 2.1 % (0-1.5); Blood Gas Oxyhemoglobin 91.9 % (94-97); Blood O2 Saturation 94.4 % (92-98.5)
[2019-03-16] MEDS: KCL 20 MEQ/100 mL IVPB 20 MEQ/100 ML BAG IV SCH (00:36)
[2019-03-16] MEDS: PIPER/TAZO/NS 3.375gm 3.375 GM/100 ML BAG IVPB SCH ×3 (01:35→17:00)
[2019-03-16] MEDS: IPRATROPIUM BROM 0.5MG/2.5ML NEB SCH (01:45)
[2019-03-16 07:03] LABS: Potassium 2.9 mmol/L (3.5-5.1)
[2019-03-16] MEDS ORDERED: IPRATROPIUM BROM 0.5MG/2.5ML NEB PRN (07:47)
[2019-03-16] MEDS ORDERED: POTASSIUM PHOSPHATE 40 MEQ in NS 500 ML IV ONE (08:00)
[2019-03-16] MEDS: ENOXAPARIN 80 MG/0.8 ML SQ SCH (08:37)
[2019-03-16] MEDS: DILTIAZEM HCL 120 MG SR CAP PO SCH (08:37)
[2019-03-16] MEDS: FOLIC ACID 1 MG TABLET PO SCH (08:38)
[2019-03-16] MEDS: CYANOCOBALAMIN 1,000 MCG TAB PO SCH ×2 (08:38→09:51)
[2019-03-16] MEDS: METOPROLOL TAR 50 MG TAB PO SCH ×2 (08:39→21:05)
[2019-03-16] MEDS: POTASSIUM GLUCONATE 550 MG PO SCH (08:39)
[2019-03-16] MEDS: FUROSEMIDE 40 MG/4 ML VIAL IV SCH (08:40)
[2019-03-16] MEDS: HOME MED 1 EA UNK (Fluticasone Propionate [Flovent Diskus] 1 SPRAY) NAS SCH ×2 (08:40→21:00)
[2019-03-16] MEDS: GABAPENTIN 300 MG CAP PO SCH ×3 (08:40→21:05)
[2019-03-16] MEDS ORDERED: HOME MED 1 EA UNK (Multivitamin [Multivitamins] 1 CAP) PO SCH (09:00)
[2019-03-16] MEDS ORDERED: CYANOCOBALAMIN 500 MCG PO SCH (09:00)
[2019-03-16] MEDS: THIAMINE HCL 100 MG TABLET PO SCH (09:49)
[2019-03-16] MEDS: MULTIVITAMIN TAB PO SCH (09:49)
[2019-03-16] MEDS: MAGNESIUM OXIDE 400 MG TAB PO SCH (09:49)
[2019-03-16] MEDS: ARFORMOTEROL TARTRATE 15 MCG/2 ML VIAL.NEB NEB SCH ×2 (10:35→20:30)
--- NOTE | 2019-03-16 10:43 | RAD REPORT ---
EXAM DESCRIPTION: RAD - Chest Pa And Lat (2 Views) - 03/16/2019 9:25 am CLINICAL HISTORY: Large right pleural effusion COMPARISON: Chest Single View dated 03/11/2019; Chest Single View dated 01/21/2019; Chest dated 2019 Chest ultrasound March 13 TECHNIQUE: Frontal and lateral views of the chest were obtained. FINDINGS: The lungs are normal volume Large right pleural effusion again noted. This is stable in size from comparison. Small to moderate pleural effusion on the left. Both show no be loculated at so nography. Heart size normal. Vascular engorgement is present. No acute bony finding noted. No aortic abnormali ty. IMPRESSION: Small a moderate left pleural effusion and large right pleural effusion. Chest sonography showed a bilateral pleural effusions to be loculated. Vascular engorgement. Failure/volume overload not excluded.
--- NOTE | 2019-03-16 10:47 | P.PN ---
Subjective Date of Service: 03/16/19 Chief Complaint: Bilateral lower extremities swelling and pain Subjective: Other (Nurses report patient is doing better. Less agitation and tremors. Patient is more alert. Able to answer questions and is cooperative.) Physical Examination - Vital Signs Temperature: 97 F Blood Pressure: 141/92 Pulse: 94 Respirations: 18 Pulse Ox (%): 96 - Physical Exam General: Alert, Cooperative, Other (Mild tremors noted but stable.) HEENT: Atraumatic Neck: Supple Respiratory: Diminished (Decreased to the right side), Expiratory wheezes Cardiovascular: Normal pulses, Regular rate/rhythm Gastrointestinal: Normal bowel sounds, No tenderness, No masses, No rebound, No guarding Musculoskeletal: No erythema, No tenderness, No warmth Integumentary: No erythema, No warmth, No cyanosis Neurological: Normal speech, Normal strength at 5/5 x4 extr, Normal tone, Normal affect - Studies Medications List Reviewed: Yes Assessment & Plan Discharge Plan: Home Plan to discharge in: 24 Hours Physician Review Additional Text: Medical problem list: Edema to the lower extremity, shortness of breath secondary to acute on chronic diastolic CHF complicated with multi loculated right pleural effusion and possible right-sided pneumonia History of mitral annular reamed surgery and bioprosthetic aortic valve Atrial fibrillation on chronic anti coagulation therapy COPD Hypertension Acute renal injury with hyponatremia Alcohol abuse with possible withdrawal Tobacco abuse Mild protein malnutrition related to alcohol abuse Hyponatremia Plan: Edema to the lower extremity, shortness of breath secondary to acute on chronic diastolic CHF complicated with multi loculated right pleural effusion and possible right-sided pneumonia: Will check chest x-ray today. Pro calcitonin improved. Will adjust IV antibiotic therapy. Continue with diuresis. Discontinue IV fluids. Echocardiogram reviewed. Ultrasound-guided thoracentesis scheduled for tomorrow. Will discuss further with pulmonology. Will continue to monitor for alcohol withdrawal. Continue with thiamine and folic acid. Chronic anti coagulation held in preparation for thoracentesis. Will maintain sats above 93%. Continue COPD medication. Anticipate discharge in the next 24-48 hr with clinical improvement. History of mitral annular reamed surgery and bioprosthetic aortic valve: Continue with medications. Atrial fibrillation on chronic anti coagulation therapy: Continue with medication. Oral chronic anti coagulation therapy held in preparation for thoracentesis. Continue with Lovenox. Hypertension: Restart home medication. COPD: Continue with COPD medication. Patient may require oxygen at discharge. Acute renal injury with hyponatremia: Will replace electrolytes. Renal function now back to baseline. Alcohol abuse with possible withdrawal: Will monitor for withdrawal. Will continue with thiamine and folic acid. Alcohol cessation addressed in detail. Case discussed with family who was present today. Tobacco abuse: Will provide nicotine patch as needed. Mild protein malnutrition related to alcohol abuse: Encourage intake. Time Spent Managing Pts Care (In Minutes): 55
[2019-03-16] MEDS ORDERED: NA CHLORIDE 0.9% 100 ML with POTASSIUM CL 10 MEQ IV ONE ×2 (13:00)
[2019-03-16] MEDS: FUROSEMIDE 40 MG TABLET PO SCH (16:15)
[2019-03-16 19:11] LABS: Potassium 3.2 mmol/L (3.5-5.1)
[2019-03-16] MEDS ORDERED: HEPARIN/D5W 25,000 UNIT/500 ML BAG IV SCH (21:00)
[2019-03-16] MEDS ORDERED: POTASSIUM CL SA 10 MEQ TAB PO ONE (21:00)
[2019-03-16 21:30] LABS: Absolute Lymphocytes (CBC) 1.4 K/uL (0.7-4.9); Basophils % 0.5 % (0-1.3); Hematocrit 41.8 % (39.6-49.0); Lymphocytes % 7.4 % (15.3-44.8); MPV 9.2 fL (7.6-11.3); RBC Red Blood Cell Count 5.46 M/uL (4.33-5.43)
[2019-03-16 21:39] LABS: Protime INR 1.46
[2019-03-17] MEDS: PIPER/TAZO/NS 3.375gm 3.375 GM/100 ML BAG IVPB SCH ×3 (00:45→16:00)
[2019-03-17 02:30] LABS: Protime INR 1.41
[2019-03-17 05:09] LABS: Absolute Lymphocytes (CBC) 1.3 K/uL (0.7-4.9); Basophils % 0.1 % (0-1.3); Hematocrit 40.1 % (39.6-49.0); Lymphocytes % 7.5 % (15.3-44.8); MPV 9.2 fL (7.6-11.3); RBC Red Blood Cell Count 5.19 M/uL (4.33-5.43)
[2019-03-17 05:19] LABS: Magnesium 2.2 mg/dL (1.8-2.4); Potassium 3.1 mmol/L (3.5-5.1)
[2019-03-17 05:24] LABS: Albumin 1.7 g/dL (3.4-5.0); Bilirubin Direct 1.7 mg/dL (0-0.2); Bilirubin Total 2.4 mg/dL (0.2-1.0); Protein, Total 6.2 g/dL (6.4-8.2)
[2019-03-17] MEDS: KCL 20 MEQ/100 mL IVPB 20 MEQ/100 ML BAG IV SCH ×2 (06:12→08:01)
[2019-03-17] MEDS: MULTIVITAMIN TAB PO SCH (08:02)
[2019-03-17] MEDS: FOLIC ACID 1 MG TABLET PO SCH (08:02)
[2019-03-17] MEDS: METOPROLOL TAR 50 MG TAB PO SCH ×3 (08:02→21:26)
[2019-03-17] MEDS: MAGNESIUM OXIDE 400 MG TAB PO SCH (08:02)
[2019-03-17] MEDS: FUROSEMIDE 40 MG TABLET PO SCH ×2 (08:02→16:23)
[2019-03-17] MEDS: DILTIAZEM HCL 120 MG SR CAP PO SCH (08:03)
[2019-03-17] MEDS: THIAMINE HCL 100 MG TABLET PO SCH (08:03)
[2019-03-17] MEDS: CYANOCOBALAMIN 1,000 MCG TAB PO SCH ×2 (08:03)
[2019-03-17] MEDS: POTASSIUM GLUCONATE 550 MG PO SCH (08:03)
[2019-03-17] MEDS: HOME MED 1 EA UNK (Fluticasone Propionate [Flovent Diskus] 1 SPRAY) NAS SCH ×2 (08:03→21:00)
[2019-03-17] MEDS: ARFORMOTEROL TARTRATE 15 MCG/2 ML VIAL.NEB NEB SCH ×2 (08:20→21:00)
--- NOTE | 2019-03-17 08:59 | RAD REPORT ---
EXAM DESCRIPTION: CT - Head Brain Wo Cont - 03/17/2019 8:51 am CLINICAL HISTORY: AMS Headache, drowsiness COMPARISON: Head angio dated 01/21/2019; Ct Stroke Brain Wo Cont dated 01/21/2019 TECHNIQUE: All CT scans are performed using dose optimization technique as appropriate and may inclu de automated exposure control or mA/KV adjustment according to patient size. FINDINGS: No intracranial hemorrhage, hydrocephalus or extra-axial fluid collection.7 mm old right f rontal lobe area of gliosis, unchanged.No areas of brain edema or evidence of midline shift. The paranasal sinuses and mastoids are clear. The calvarium is intact. IMPRESSION: No acute intracranial abnormality.
--- NOTE | 2019-03-17 11:35 | P.PN ---
Subjective Date of Service: 03/17/19 Primary Care Provider: Unknown Chief Complaint: Bilateral lower extremities swelling and pain Subjective: Other (Patient with more fatigued. Patient scheduled to have ultrasound-guided thoracentesis.) Physical Examination - Vital Signs Temperature: 97.0 F Blood Pressure: 112/73 Pulse: 86 Respirations: 18 Pulse Ox (%): 96 - Physical Exam General: Alert, Other (Increased fatigue) HEENT: Atraumatic Neck: Supple Respiratory: Diminished (Diminished to the bases) Cardiovascular: Irregular heart rate/rhythm (a fib rate controlled. ) Gastrointestinal: Normal bowel sounds, Non-distended, No masses, No rebound, No guarding Integumentary: Tenderness/swelling (Edema noted to the lower extremity) Neurological: Normal speech, Normal strength at 5/5 x4 extr, Normal tone - Studies Medications List Reviewed: Yes Assessment & Plan Discharge Plan: Home Plan to discharge in: 24 Hours Physician Review Additional Text: Medical problem list: Edema to the lower extremity, shortness of breath secondary to acute on chronic diastolic CHF complicated with multi loculated right pleural effusion and possible right-sided pneumonia History of mitral annular reamed surgery and bioprosthetic aortic valve Atrial fibrillation on chronic anti coagulation therapy COPD Hypertension Acute renal injury with hyponatremia Alcohol abuse with possible withdrawal Tobacco abuse Mild protein malnutrition related to alcohol abuse Hyponatremia Plan: Edema to the lower extremity, shortness of breath secondary to acute on chronic diastolic CHF complicated with multi loculated right pleural effusion and possible right-sided pneumonia: Patient will have ultrasound-guided thoracentesis. Continue with IV antibiotic therapy. Continue with diuresis. Will discuss further with pulmonology. Echocardiogram reviewed. Will continue to monitor for alcohol withdrawal. Continue with thiamine and folic acid. Chronic anti coagulation held in preparation for thoracentesis. Will maintain sats above 93%. Continue COPD medication. Anticipate discharge in the next 24- 48 hr with clinical improvement. History of mitral annular reamed surgery and bioprosthetic aortic valve: Continue with medications. Atrial fibrillation on chronic anti coagulation therapy: Continue with medication. Oral chronic anti coagulation therapy held in preparation for thoracentesis. Continue with Lovenox. Hypertension: Continue home medication. COPD: Continue with COPD medication. Patient may require oxygen at discharge. Will discuss with pulmonology Acute renal injury with hyponatremia: Will continue to replace electrolytes. Renal function now back to baseline. Alcohol abuse with possible withdrawal: Will monitor for withdrawal. Will continue with thiamine and folic acid. Alcohol cessation addressed in detail. Case discussed with family who was present today. Tobacco abuse: Will provide nicotine patch as needed. Mild protein malnutrition related to alcohol abuse: Encourage intake. Time Spent Managing Pts Care (In Minutes): 55
--- NOTE | 2019-03-17 13:51 | RAD REPORT ---
EXAM DESCRIPTION: US - Chest - 03/17/2019 1:40 pm CLINICAL HISTORY: pleural effusion COMPARISON: Chest Pa And Lat (2 Views) dated 03/16/2019 FINDINGS: Real-time sonography was performed of the left and right chest to evaluate for possible th oracentesis procedure. Small to moderate pleural effusions are again seen bilaterally, however the pleural effusions demonst rate significant loculation with thickened septa and atelectatic lung. Because of this, ultrasound-gu ided thoracentesis was deferred. IMPRESSION: Significantly loculated small to moderate-sized bilateral pleural effusions are present.
[2019-03-17] MEDS ORDERED: FUROSEMIDE 20 MG TABLET PO ONE (17:09)
[2019-03-17] MEDS ORDERED: HEPARIN/D5W 25,000 UNIT/500 ML BAG IV SCH (19:00)
[2019-03-17 20:53] LABS: Basophils % 0.4 % (0-1.3); Hematocrit 40.6 % (39.6-49.0); Lymphocytes % 6.3 % (15.3-44.8); RBC Red Blood Cell Count 5.26 M/uL (4.33-5.43)
[2019-03-17 20:54] LABS: Protime INR 1.52
[2019-03-17 21:30] LABS: Blood Morphology Comment NOTED (NOT SEEN); Burr Cells 2+; Platelet Estimate ADEQ
[2019-03-17] MEDS: LORazepam 2 MG/ML VIAL IV PRN (21:40)
[2019-03-17] MEDS ORDERED: LORAZEPAM 0.5 MG TABLET PO PRN (21:58)
[2019-03-18] MEDS: PIPER/TAZO/NS 3.375gm 3.375 GM/100 ML BAG IVPB SCH ×3 (00:03→17:51)
[2019-03-18] MEDS ORDERED: LORazepam 2 MG/ML VIAL IV ONE (00:24)
[2019-03-18 06:25] LABS: Absolute Lymphocytes (CBC) 1.1 K/uL (0.7-4.9); Basophils % 0.3 % (0-1.3); Hematocrit 39.5 % (39.6-49.0); Lymphocytes % 7.7 % (15.3-44.8); MPV 9.2 fL (7.6-11.3); RBC Red Blood Cell Count 5.22 M/uL (4.33-5.43)
[2019-03-18] MEDS: ARFORMOTEROL TARTRATE 15 MCG/2 ML VIAL.NEB NEB SCH ×2 (07:50→20:25)
--- NOTE | 2019-03-18 08:47 | P.PN ---
Subjective Date of Service: 03/18/19 Primary Care Provider: Unknown Chief Complaint: Bilateral lower extremities swelling and pain Subjective: Other (Patient confused.) Physical Examination - Vital Signs Temperature: 97.9 F Blood Pressure: 130/72 Pulse: 122 Respirations: 20 Pulse Ox (%): 94 - Physical Exam General: Other (Patient confused. Difficult or row [place] likely from hypercapnia) HEENT: Atraumatic Neck: Supple Respiratory: Diminished (Bile a) Cardiovascular: Irregular heart rate/rhythm (AFib rate around 100) Gastrointestinal: Normal bowel sounds, Non-distended, No tenderness, No masses Musculoskeletal: No tenderness, No warmth Integumentary: No erythema, No warmth, No cyanosis Neurological: Other (Patient confuse. Mild tremors noted.) - Studies Medications List Reviewed: Yes Assessment & Plan Discharge Plan: Transfer Plan to discharge in: 24 Hours Physician Review Additional Text: Medical problem list: Encephalopathy with acute on chronic respiratory failure with hypercapnia likely secondary to multifactorial reasons: Acute on chronic systolic CHF, multi loculated right pleural effusions bilateral with pneumonia, and COPD exacerbation History of mitral annular reamed surgery and bioprosthetic aortic valve Atrial fibrillation on chronic anti coagulation therapy Hypertension Acute renal injury with hypernatremia and hypokalemia Alcohol abuse with possible withdrawal Tobacco abuse Mild protein malnutrition related to alcohol abuse Hyponatremia Plan: Encephalopathy with acute on chronic respiratory failure with hypercapnia likely secondary to multifactorial reasons: Acute on chronic systolic CHF, multi loculated right pleural effusions bilateral with pneumonia, and COPD exacerbation: Patient difficult to arouse this morning. Likely related to hypercapnia. Poor inspiration and expiration noted. Case discussed with pulmonology. Will transfer patient to the ICU. Will get ABG. Will start BiPAP. If his condition continues to decline patient may require intubation. Will continue to monitor closely. Will update transfer center. Case discussed at length with card of vascular surgery and hospitalist at [facility]. They agreed for transfer for VATS procedure. Will update transfer center and hospitalist. Respiratory to maintain sats above 93%. Continue to monitor closely. Await further recommendations from pulmonology. Case discussed with family. Acute renal injury with hypernatremia and hypokalemia: Patient likely with over diuresis. Will start IV fluids. Hold the diuretic therapy. Continue monitor closely. Will consult Nephrology to further monitor fluids. History of mitral annular reamed surgery and bioprosthetic aortic valve: Patient currently on heparin drip in preparation for likely VATS procedure. Oral anti coagulation has been held. Atrial fibrillation on chronic anti coagulation therapy: Patient on heparin drip in preparation for VATS procedure. Oral anti coagulation therapy held. Hypertension: Continue home medication. Alcohol abuse with possible withdrawal: Will monitor for withdrawal. Still with slight tremors. Will continue with thiamine and folic acid. Alcohol cessation addressed in detail. Tobacco abuse: Will provide nicotine patch as needed. Mild protein malnutrition related to alcohol abuse: Encourage intake. Time Spent Managing Pts Care (In Minutes): 55
[2019-03-18] MEDS: MAGNESIUM OXIDE 400 MG TAB PO SCH (09:00)
[2019-03-18] MEDS: DILTIAZEM HCL 120 MG SR CAP PO SCH (09:00)
[2019-03-18] MEDS: THIAMINE HCL 100 MG TABLET PO SCH (09:00)
[2019-03-18] MEDS: METOPROLOL TAR 50 MG TAB PO SCH (09:00)
[2019-03-18] MEDS: MULTIVITAMIN TAB PO SCH (09:00)
[2019-03-18] MEDS: FOLIC ACID 1 MG TABLET PO SCH (09:00)
[2019-03-18] MEDS: HOME MED 1 EA UNK (Fluticasone Propionate [Flovent Diskus] 1 SPRAY) NAS SCH ×2 (09:00→20:01)
[2019-03-18] MEDS: POTASSIUM GLUCONATE 550 MG PO SCH (09:00)
[2019-03-18] MEDS: CYANOCOBALAMIN 1,000 MCG TAB PO SCH ×2 (09:00)
[2019-03-18] MEDS: METOLAZONE 5 MG TABLET PO SCH (09:00)
[2019-03-18] MEDS: D5W 1,000 ML IV SCH ×2 (09:00→21:58)
[2019-03-18 09:08] LABS: Blood Gas Oxyhemoglobin 92.8 % (94-97); Blood O2 Saturation 95.1 % (92-98.5)
[2019-03-18] MEDS: METOPROLOL TARTRATE 5 MG/5 ML INJ IV SCH ×3 (10:30→21:57)
[2019-03-18] MEDS: MULTIVITAMINS IV SCH (10:30)
[2019-03-18] MEDS: FOLIC ACID IV SCH (10:30)
[2019-03-18] MEDS: THIAMINE HCL IV SCH (10:30)
[2019-03-18] MEDS: D5W IV SCH (10:30)
[2019-03-18] MEDS: KCL 20 MEQ/100 mL IVPB 20 MEQ/100 ML BAG IV SCH ×2 (10:31→12:34)
[2019-03-18] MEDS: ENOXAPARIN 100 MG/ML SYR SQ SCH (12:17)
[2019-03-18] MEDS ORDERED: HALOPERIDOL LACT 5 MG/ML INJ IV PRN (12:17)
[2019-03-18] MEDS ORDERED: Pharmacy Consult 1 EA XX PRN (12:18)
--- NOTE | 2019-03-18 12:18 | P.PN ---
Subjective Date of Service: 03/18/19 Primary Care Provider: Unknown Chief Complaint: AMS WOrse unresponsive. Tx to ICU. Pt delirious. Ativan last night. ETON withdrawal. Hypernatremia Review of Systems is unable to be obtained Physical Examination - Vital Signs Temperature: 97.9 F Blood Pressure: 118/67 Pulse: 113 Respirations: 20 Pulse Ox (%): 94 - Physical Exam General: Delirious, Unresponsive Neck: Supple Respiratory: Clear to auscultation bilaterally, Diminished (R side) Cardiovascular: Normal S1 S2, Edema - Studies Medications List Reviewed: Yes Assessment & Plan - Problems (Diagnosis) (1) Pleural effusion Current Visit: Yes Status: Acute Plan: Pt will needs VATS .procedure. Multiloculated effusion wiht elevated WBA. CW Zosyn and add Vanc Hypernatremia. D5 water. Dc Lasix. change ot Lovenox HAldol (2) Respiratory failure Current Visit: Yes Status: Acute Plan: probably has COPD. CW bronchodilators. Refusal to keep BIPAP. No change in Co2. Stable to transfer change to Lovenox Qualifiers: Chronicity: chronic Respiratory failure complication: hypoxia and hypercapnia Qualified Code(s): J96.11 - Chronic respiratory failure with hypoxia; J96.12 - Chronic respiratory failure with hypercapnia Physician Review Additional Text: Medical problem list: Encephalopathy with acute on chronic respiratory failure with hypercapnia likely secondary to multifactorial reasons: Acute on chronic systolic CHF, multi loculated right pleural effusions bilateral with pneumonia, and COPD exacerbation History of mitral annular reamed surgery and bioprosthetic aortic valve Atrial fibrillation on chronic anti coagulation therapy Hypertension Acute renal injury with hypernatremia and hypokalemia Alcohol abuse with possible withdrawal Tobacco abuse Mild protein malnutrition related to alcohol abuse Hyponatremia Plan: Encephalopathy with acute on chronic respiratory failure with hypercapnia likely secondary to multifactorial reasons: Acute on chronic systolic CHF, multi loculated right pleural effusions bilateral with pneumonia, and COPD exacerbation: Patient difficult to arouse this morning. Likely related to hypercapnia. Poor inspiration and expiration noted. Case discussed with pulmonology. Will transfer patient to the ICU. Will get ABG. Will start BiPAP. If his condition continues to decline patient may require intubation. Will continue to monitor closely. Will update transfer center. Case discussed at length with card of vascular surgery and hospitalist at [facility]. They agreed for transfer for VATS procedure. Will update transfer center and hospitalist. Respiratory to maintain sats above 93%. Continue to monitor closely. Await further recommendations from pulmonology. Case discussed with family. Acute renal injury with hypernatremia and hypokalemia: Patient likely with over diuresis. Will start IV fluids. Hold the diuretic therapy. Continue monitor closely. Will consult Nephrology to further monitor fluids. History of mitral annular reamed surgery and bioprosthetic aortic valve: Patient currently on heparin drip in preparation for likely VATS procedure. Oral anti coagulation has been held. Atrial fibrillation on chronic anti coagulation therapy: Patient on heparin drip in preparation for VATS procedure. Oral anti coagulation therapy held. Hypertension: Continue home medication. Alcohol abuse with possible withdrawal: Will monitor for withdrawal. Still with slight tremors. Will continue with thiamine and folic acid. Alcohol cessation addressed in detail. Tobacco abuse: Will provide nicotine patch as needed. Mild protein malnutrition related to alcohol abuse: Encourage intake.
[2019-03-18] MEDS: CYANOCOBALAMIN 1000MCG/ML INJ IM SCH (12:35)
[2019-03-18] MEDS: LORazepam 2 MG/ML VIAL IV PRN (13:36)
[2019-03-18] MEDS ORDERED: RSI MEDICATION KIT IV ONE (14:13)
[2019-03-18] MEDS ORDERED: propofoL 1,000 MG/100 ML VIAL IV ONE (14:14)
[2019-03-18] MEDS ORDERED: FENTANYL CITR 100 MCG/2 ML IV PRN (14:59)
[2019-03-18] MEDS ORDERED: MIDAZOLAM HCL 2 MG/2 ML INJ IV PRN (14:59)
[2019-03-18] MEDS ORDERED: propofoL 1,000 MG/100 ML VIAL IV PRN ×2 (14:59→20:08)
[2019-03-18] MEDS ORDERED: LORazepam 2 MG/ML VIAL IV PRN (14:59)
[2019-03-18] MEDS ORDERED: SUCCINYLCHOLINE 20 MG/ML (10 ML) IV ONE (15:12)
--- NOTE | 2019-03-18 15:33 | RAD REPORT ---
EXAM DESCRIPTION: RAD - Chest Single View - 03/18/2019 3:27 pm CLINICAL HISTORY: E-tube Placement Chest pain. COMPARISON: Chest Pa And Lat (2 Views) dated 03/16/2019; Chest Single View dated 03/11/2019; Chest Sin gle View dated 01/21/2019; Chest Pa And Lat (2 Views) dated 05/15/2018 FINDINGS: Portable technique limits examination quality. Tip of the ET tube is at the level of the shruthi. Enteric tube tip extends into the upper abdomen. Mi ld improvement in bilateral pleural effusion size seen.Cardiac size is mildly prominent with sternoto my wires present.
[2019-03-18] MEDS: VANCOMYCIN 1.5 GM in NA CHLORIDE 0.9% 500 ML IVPB SCH (15:51)
[2019-03-18] MEDS ORDERED: POTASSIUM 25 MEQ EFFERV TAB FT ONE (21:25)
[2019-03-19] MEDS: ENOXAPARIN 100 MG/ML SYR SQ SCH ×2 (00:06→10:27)
[2019-03-19] MEDS: PIPER/TAZO/NS 3.375gm 3.375 GM/100 ML BAG IVPB SCH ×3 (00:46→16:01)
[2019-03-19] MEDS: METOPROLOL TARTRATE 5 MG/5 ML INJ IV SCH ×3 (05:20→15:45)
[2019-03-19 05:30] LABS: Absolute Lymphocytes (CBC) 1.4 K/uL (0.7-4.9); Basophils % 0.7 % (0-1.3); Hematocrit 35.8 % (39.6-49.0); Lymphocytes % 9.5 % (15.3-44.8); MPV 9.1 fL (7.6-11.3); RBC Red Blood Cell Count 4.77 M/uL (4.33-5.43)
[2019-03-19 05:39] LABS: Magnesium 2.3 mg/dL (1.8-2.4); Potassium 3.2 mmol/L (3.5-5.1)
[2019-03-19 06:07] LABS: Arterial Blood Carboxyhemoglob 1.8 % (0-1.5); Blood Gas Oxyhemoglobin 95.4 % (94-97); Blood O2 Saturation 97.6 % (92-98.5)
[2019-03-19] MEDS: VANCOMYCIN 1.5 GM in NA CHLORIDE 0.9% 500 ML IVPB SCH (06:29)
--- NOTE | 2019-03-19 08:05 | RAD REPORT ---
EXAM DESCRIPTION: [place] Single View03/19/2019 5:54 am CLINICAL HISTORY: Pleural effusion COMPARISON: March 18 the FINDINGS: Endotracheal tube has its tip at the shruthi. Nasogastric tube is present the stomach. Moderate loculated pleural effusions without significant change. The bibasilar opacities could either represent a combination of atelectasis and pneumonia or atelecta sis.
--- NOTE | 2019-03-19 08:28 | P.PN ---
Subjective Date of Service: 03/19/19 Primary Care Provider: Unknown Chief Complaint: Respiratory failure Patient was intubated yesterday due to agitation stable awaiting transfer to a tertiary care hospital Review of Systems is unable to be obtained Physical Examination - Vital Signs Temperature: 97.5 F Blood Pressure: 104/58 Pulse: 100 Respirations: 20 Pulse Ox (%): 99 - Physical Exam General: Unresponsive Respiratory: Diminished (Diminished air entry right worse than the left) Cardiovascular: Regular rate/rhythm, Normal S1 S2, Edema - Studies Medications List Reviewed: Yes Assessment & Plan - Problems (Diagnosis) (1) Pleural effusion Current Visit: Yes Status: Acute Plan: Continue with the Zosyn and vancomycin waiting transfer (2) Respiratory failure Current Visit: Yes Status: Acute Plan: Patient intubated yesterday has bilateral pleural effusion Dc me that D5 water renal function has improved at spironolactone start tube feeds continue with IV thymine wean off propofol use Ativan history of alcohol withdrawal Qualifiers: Chronicity: chronic Respiratory failure complication: hypoxia and hypercapnia Qualified Code(s): J96.11 - Chronic respiratory failure with hypoxia; J96.12 - Chronic respiratory failure with hypercapnia Physician Review Additional Text: Medical problem list: Encephalopathy with acute on chronic respiratory failure with hypercapnia likely secondary to multifactorial reasons: Acute on chronic systolic CHF, multi loculated right pleural effusions bilateral with pneumonia, and COPD exacerbation History of mitral annular reamed surgery and bioprosthetic aortic valve Atrial fibrillation on chronic anti coagulation therapy Hypertension Acute renal injury with hypernatremia and hypokalemia Alcohol abuse with possible withdrawal Tobacco abuse Mild protein malnutrition related to alcohol abuse Hyponatremia Plan: Encephalopathy with acute on chronic respiratory failure with hypercapnia likely secondary to multifactorial reasons: Acute on chronic systolic CHF, multi loculated right pleural effusions bilateral with pneumonia, and COPD exacerbation: Patient difficult to arouse this morning. Likely related to hypercapnia. Poor inspiration and expiration noted. Case discussed with pulmonology. Will transfer patient to the ICU. Will get ABG. Will start BiPAP. If his condition continues to decline patient may require intubation. Will continue to monitor closely. Will update transfer center. Case discussed at length with card of vascular surgery and hospitalist at [facility]. They agreed for transfer for VATS procedure. Will update transfer center and hospitalist. Respiratory to maintain sats above 93%. Continue to monitor closely. Await further recommendations from pulmonology. Case discussed with family. Acute renal injury with hypernatremia and hypokalemia: Patient likely with over diuresis. Will start IV fluids. Hold the diuretic therapy. Continue monitor closely. Will consult Nephrology to further monitor fluids. History of mitral annular reamed surgery and bioprosthetic aortic valve: Patient currently on heparin drip in preparation for likely VATS procedure. Oral anti coagulation has been held. Atrial fibrillation on chronic anti coagulation therapy: Patient on heparin drip in preparation for VATS procedure. Oral anti coagulation therapy held. Hypertension: Continue home medication. Alcohol abuse with possible withdrawal: Will monitor for withdrawal. Still with slight tremors. Will continue with thiamine and folic acid. Alcohol cessation addressed in detail. Tobacco abuse: Will provide nicotine patch as needed. Mild protein malnutrition related to alcohol abuse: Encourage intake.
[2019-03-19] MEDS: ARFORMOTEROL TARTRATE 15 MCG/2 ML VIAL.NEB NEB SCH ×2 (08:36→19:35)
[2019-03-19] MEDS ORDERED: SPIRONOLACTONE 25 MG TABLET PO SCH (09:00)
[2019-03-19] MEDS ORDERED: THIAMINE 200 MG/2 ML INJ IVP SCH (09:00)
[2019-03-19] MEDS: HOME MED 1 EA UNK (Fluticasone Propionate [Flovent Diskus] 1 SPRAY) NAS SCH (09:00)
[2019-03-19] MEDS: POTASSIUM GLUCONATE 550 MG PO SCH (09:00)
[2019-03-19] MEDS: DILTIAZEM HCL 120 MG SR CAP PO SCH (09:00)
[2019-03-19] MEDS: D5W IV SCH (10:26)
[2019-03-19] MEDS: THIAMINE HCL IV SCH (10:26)
[2019-03-19] MEDS: MULTIVITAMINS IV SCH (10:26)
[2019-03-19] MEDS: FOLIC ACID IV SCH (10:26)
[2019-03-19] MEDS: CYANOCOBALAMIN 1000MCG/ML INJ IM SCH (10:28)
[2019-03-19] MEDS: MAGNESIUM OXIDE 400 MG TAB PO SCH (10:31)
[2019-03-19] MEDS ORDERED: POTASSIUM 25 MEQ EFFERV TAB PO ONE ×2 (10:39→18:27)
--- NOTE | 2019-03-19 11:40 | P.PN ---
Subjective Date of Service: 03/19/19 Primary Care Provider: Unknown Chief Complaint: Respiratory failure Subjective: Other (Patient remains intubated. Overall stable. Still waiting on bed for transfer to [facility].) Physical Examination - Vital Signs Temperature: 97.5 F Blood Pressure: 121/64 Pulse: 100 Respirations: 10 Pulse Ox (%): 97 - Physical Exam General: Other (Patient intubated and sedated) HEENT: Atraumatic Neck: Supple Respiratory: Crackles/rales (To the bases) Cardiovascular: Irregular heart rate/rhythm (AFib rate controlled) Gastrointestinal: Normal bowel sounds, Soft and benign, Non-distended Integumentary: Tenderness/swelling (Some edema to the lower extremities noted.) - Studies Medications List Reviewed: Yes Assessment & Plan Discharge Plan: Transfer Plan to discharge in: 24 Hours Physician Review Additional Text: Medical problem list: Encephalopathy with acute on chronic respiratory failure with hypercapnia likely secondary to multifactorial reasons: Acute on chronic systolic CHF, multi loculated right pleural effusions bilateral with pneumonia, and COPD exacerbation History of mitral annular reamed surgery and bioprosthetic aortic valve Atrial fibrillation on chronic anti coagulation therapy Hypertension Acute renal injury with hypernatremia and hypokalemia Alcohol abuse with possible withdrawal Tobacco abuse Mild protein malnutrition related to alcohol abuse Hyponatremia Plan: Encephalopathy with acute on chronic respiratory failure with hypercapnia likely secondary to multifactorial reasons: Acute on chronic systolic CHF, multi loculated right pleural effusions bilateral with pneumonia, COPD exacerbation, and medication: Patient was intubated yesterday due to worsening shortness of breath. Patient stable at this time. Patient remains sedated. Continue IV cefepime and vancomycin. Pharmacy to monitor and adjust. Pulmonology plans to wean off. Blood cultures still negative. Awaiting transfer to [facility]. Patient will require fax. Case discussed at length with CT surgery and corporate giving manager yesterday. Will continue to update. Anticipate transferred today once bed available. Acute renal injury with hypernatremia and hypokalemia: This has improved. Nephrology making adjustments to medications. History of mitral annular reamed surgery and bioprosthetic aortic valve: Patient now on Lovenox. Oral anti coagulation therapy has been held. This is in preparation for VATS procedure. Atrial fibrillation on chronic anti coagulation therapy: Patient on Lovenox in preparation for VATS procedure. Oral anti coagulation therapy held. Hypertension: IV medication initiated. Alcohol abuse with possible withdrawal: Patient intubated and sedated. Will continue with thiamine and folic acid. Alcohol cessation addressed in detail. Tobacco abuse: Will continue with nicotine patch as needed. Mild protein malnutrition related to alcohol abuse: Encourage intake. Will discuss with pulmonology on providing tube feeds. Time Spent Managing Pts Care (In Minutes): 55
[2019-03-19 15:37] VITALS: TEMP 97.7
--- NOTE | 2019-03-19 18:11 | P.DS ---
Admission Date: 03/11/19 Discharge Date: 03/19/19 Primary Care Provider: Unknown Disposition: TRANSFER TO [facility] Discharge Condition: FAIR Reason for Admission: Respiratory failure Consultations: Pulmonology-Dr. Pierre Cardiology-Dr. Garcia Procedures: CT head COMPARISON: Head angio dated 01/21/2019; Ct Stroke Brain Wo Cont dated 2018 TECHNIQUE: All CT scans are performed using dose optimization technique as appropriate and may include automated exposure control or mA/KV adjustment according to patient size. FINDINGS: No intracranial hemorrhage, hydrocephalus or extra-axial fluid collection.7 mm old right frontal lobe area of gliosis, unchanged.No areas of brain edema or evidence of midline shift. The paranasal sinuses and mastoids are clear. The calvarium is intact. IMPRESSION: No acute intracranial abnormality. Chest x-ray FINDINGS: The lungs are normal volume Large right pleural effusion again noted. This is stable in size from comparison. Small to moderate pleural effusion on the left. Both show no be loculated at sonography. Heart size normal. Vascular engorgement is present. No acute bony finding noted. No aortic abnormality. IMPRESSION: Small a moderate left pleural effusion and large right pleural effusion. Chest sonography showed a bilateral pleural effusions to be loculated. Vascular engorgement. Failure/volume overload not excluded. Follow up chest x-ray COMPARISON: March 18 the FINDINGS: Endotracheal tube has its tip at the shruthi. Nasogastric tube is present the stomach. Moderate loculated pleural effusions without significant change. The bibasilar opacities could either represent a combination of atelectasis and pneumonia or atelectasis. Chest Ultrasound COMPARISON: Chest Single View dated 03/11/2019 FINDINGS: Bilateral pleural effusions are present, small on the left and moderate on the right. There are multiple thick septa throughout the effusions with atelectatic lung compatible with significant loculation. 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 Patient found to have bilateral pleural effusions that appeared loculated with possible pneumonia. Patient was admitted for further evaluation. Hospital Course: Patient presented with encephalopathy. During the course of his stay, his progress was complicated. Patient was found to have multi loculated right pleural effusions with bilateral pneumonia. Patient was seen by pulmonology, cardiology. There was planned for thoracentesis. This was not able to be done due to the multiple loculations. Transfer process was initiated for VATS procedure. This was discussed with CT surgery and intensive this at [facility]. Patient accepted for transfer. Transfer was held due to lack of beds. During that time patient developed acute on chronic respiratory failure with hypercapnia likely related to acute on chronic systolic CHF, multi loculated pleural effusions with bilateral pneumonia and COPD exacerbation. The patient was intubated and stabilize. A bed was finally available. Patient will be transferred to [facility]. Patient will be further evaluated by CT surgery and diet assistant. Patient will likely have VATS procedure for further treatment. Other conditions treated included acute renal injury with hypernatremic and hypokalemia. Patient was seen by nephrology. Medications adjusted. Patient given IV fluids. This has remained stable with improvement. Patient has history of mitral annular ring knee surgery with bioprostatic aortic valve. Patient was seen by Cardiology during the course of his stay. Patient had been on chronic anti coagulation therapy. This was switched over to heparin and eventually Lovenox in preparation for thoracentesis which could not be done here. At discharge patient currently on Lovenox in preparation for VATS procedure. Patient with history of atrial fibrillation. As mentioned above patient currently on Lovenox at this time in preparation for VATS. Patient takes oral anti coagulation therapy as an outpatient. Patient will likely continue with medication at final discharge. Patient also with history of alcohol abuse. Patient likely had alcohol withdrawal. This led to his intubation due to increase agitation. Patient currently intubated at this time. Patient with protein malnutrition. Patient will need dietary evaluation at discharge. Vital Signs/Physical Exam: Temp Pulse Resp BP Pulse Ox 97.7 F 101 H 12 119/76 96 03/19/19 16:00 03/19/19 16:00 03/19/19 16:00 03/19/19 16:00 03/19/19 16:00 General: Other (Patient intubated and sedated) HEENT: Atraumatic Neck: Supple Respiratory: Crackles/rales Cardiovascular: Irregular heart rate/rhythm (AFib rate controlled) Gastrointestinal: Normal bowel sounds Laboratory Data at Discharge: WBC 14.2 K/uL (4.3-10.9) H 03/19/19 05:08 Hgb 11.8 g/dL (13.6-17.9) L 03/19/19 05:08 Hct 35.8 % (39.6-49.0) L 03/19/19 05:08 Plt Count 353 K/uL (152-406) 03/19/19 05:08 PT 17.7 SECONDS (9.5-12.5) H 03/17/19 20:34 INR 1.52 03/17/19 20:34 APTT 48.8 SECONDS (24.3-36.9) H 03/18/19 09:25 Sodium 145 mmol/L (136-145) 03/19/19 05:08 Potassium 2.7 mmol/L (3.5-5.1) L* 03/19/19 17:02 BUN 25 mg/dL (7-18) H 03/19/19 05:08 Creatinine 1.09 mg/dL (0.55-1.3) 03/19/19 05:08 Glucose 104 mg/dL (74-106) 03/19/19 05:08 Magnesium 2.3 mg/dL (1.8-2.4) 03/19/19 05:08 Total Bilirubin 2.4 mg/dL (0.2-1.0) H 03/17/19 04:25 AST 16 U/L (15-37) 03/17/19 04:25 ALT 14 U/L (12-78) 03/17/19 04:25 Alkaline Phosphatase 96 U/L (45-117) 03/17/19 04:25 Troponin I 0.05 ng/mL (0.0-0.045) H 03/11/19 15:44 Home Medications: Apixaban [Eliquis] 5 mg PO BID 03/11/19 Cyanocobalamin (Vitamin B-12) [Vitamin B-12] 500 mcg PO DAILY 03/11/19 Folic Acid 1 mg PO DAILY 03/11/19 Furosemide 40 mg PO BID 03/11/19 Gabapentin 300 mg PO TID 03/11/19 Hydrocodone Bit/Acetaminophen [Hydrocodon-Acetaminoph 7.5-325] 1 tab PO Q6HP PRN 03/11/19 Magnesium Oxide 400 mg PO DAILY 03/11/19 Metoprolol Tartrate 100 mg PO BID 03/11/19 Multivitamin [Multivitamins] 1 cap PO DAILY 03/11/19 Potassium Chloride [K-Dur] 40 meq PO DAILY 03/11/19 [id number] HCL [Diltiazem HCl] 120 mg PO DAILY 03/11/19 metOLazone [Metolazone] 5 mg PO SEECOM 03/11/19 Patient Discharge Instructions: Patient be transferred to [facility] for VATS procedure. Case discussed with diet assistant and CT surgery. Continue current medication. Patient currently intubated and sedated. Diet: NPO Activity: Bedrest Time spent managing pt's care (in minutes): 55
[2019-03-19 21:12] VITALS: BP 114/53
[2019-03-19 21:24] VITALS: O2SAT 98
== END 2019-03-19 21:45 | disposition short-term general hospital (02) | DRG 208 ==
LOC: ER 09:11 → ERHOLD 14:06 → 4TH 14:46 → 3RD-ICU 03-18 08:46
PROVIDERS: ADMIT Hospitalist; ATTEND Family Medicine
PROC: 0BH17EZ Insertion of Endotracheal Airway into Trachea, Via Natural or Artificial Opening (ICD-10-PCS; principal; 2019-03-18)
PROC: 5A1945Z Respiratory Ventilation, 24-96 Consecutive Hours (ICD-10-PCS; 2019-03-18)
DX: J96.22 Acute and chronic respiratory failure with hypercapnia (principal); I50.33 Acute on chronic diastolic (congestive) heart failure; J18.9 Pneumonia, unspecified organism; N17.9 Acute kidney failure, unspecified; E44.1 Mild protein-calorie malnutrition; E87.3 Alkalosis; F10.239 Alcohol dependence with withdrawal, unspecified; G93.40 Encephalopathy, unspecified; J44.1 Chronic obstructive pulmonary disease with (acute) exacerbation; E87.4 Mixed disorder of acid-base balance; I48.20 Chronic atrial fibrillation, unspecified; E87.1 Hypo-osmolality and hyponatremia; I11.0 Hypertensive heart disease with heart failure; E87.6 Hypokalemia; M54.9 Dorsalgia, unspecified; F17.210 Nicotine dependence, cigarettes, uncomplicated; Z68.28 Body mass index [BMI] 28.0-28.9, adult; Z79.01 Long term (current) use of anticoagulants
CPT/HCPCS: 36415; 70450; 71045; 71046; 76604; 80048; 80076; 80202; 81003; 82140; 82805; 83735; 83880; 84132; 84145; 84443; 84484; 85025; 85610; 85730; 87040; 87070; 87205; 93005; 93306; 93970; 94003; 94640; 94660; 96365; 96366; 96375; 97116; 97161; 97530; 99285; J0330; J0456; J0696; J1120; J1160; J1630; J1650; J1940; J2543; J2704; J2930; J3411; J3420; J7030; J7040; J7605

== ENCOUNTER 2019-05-30 12:35 | Emergency (ER) | payer OTHER ==
--- OUTSIDE RECORDS SUMMARY | 2019-05-30 12:50 | XMS REPORT ---
:1955 [facility] Smith [address] [place] [id number] Care Team Providers Name Role Phone BRITTON CARDONA Unavailable Unavailable CAITY CHAUDHARI Unavailable Unavailable Problems This patient has no known problems. Allergies, Adverse Reactions, Alerts This patient has no known allergies or adverse reactions. Medications This patient has no known medications. Results Test Description Test Time Test Comments Text Results Atomic Results Result Comments AFB CULTURE + SMEAR (NON-SPUTUM) 2019-05-26 15:52:00 Test Item Value Reference Range Comments CULTURE (BEAKER) (test ghqr=1751) No acid-fast bacilli isolated in 42 days AFB SMEAR (BEAKER) (test bdpm=189) No acid fast bacilli seen AFB CULTURE + SMEAR (NON-SPUTUM)2019-05-26 15:52:00 Test Item Value Reference Range Comments CULTURE (BEAKER) (test No acid-fast bacilli isolated emze=8029) in 42 days AFB SMEAR (BEAKER) (test No acid fast bacilli seen cibw=186) AFB CULTURE + SMEAR (NON-SPUTUM)2019-05-26 15:52:00 Test Item Value Reference Range Comments CULTURE (BEAKER) (test No acid-fast bacilli isolated kizk=4107) in 42 days AFB SMEAR (BEAKER) (test No acid fast bacilli seen qazl=958) AFB CULTURE + SMEAR (NON-SPUTUM)2019-05-26 15:52:00 Test Item Value Reference Range Comments CULTURE (BEAKER) (test No acid-fast bacilli isolated dxjw=3097) in 42 days AFB SMEAR (BEAKER) (test No acid fast bacilli seen mwwr=602) AFB CULTURE + SMEAR (NON-SPUTUM)2019-05-26 15:52:00 Test Item Value Reference Range Comments CULTURE (BEAKER) (test No acid-fast bacilli isolated gxyb=1873) in 42 days AFB SMEAR (BEAKER) (test No acid fast bacilli seen odaw=141) AFB CULTURE + SMEAR (NON-SPUTUM)2019-05-26 15:52:00 Test Item Value Reference Range Comments CULTURE (BEAKER) (test No acid-fast bacilli isolated woyv=7455) in 42 days AFB SMEAR (BEAKER) (test No acid fast bacilli seen xheh=702) FUNGUS CULTURE + [id number] 16:19:00 Test Item Value Reference Range Comments CULTURE (BEAKER) (test No fungus isolated in 28 days mhme=7558) FUNGUS SMEAR (BEAKER) (test No fungi seen waci=5052) FUNGUS CULTURE + [id number] 16:19:00 Test Item Value Reference Range Comments CULTURE (BEAKER) (test No fungus isolated in 28 days kbtr=2936) FUNGUS SMEAR (BEAKER) (test <1+ yeast toox=8395) FUNGUS CULTURE + [id number] 16:19:00 Test Item Value Reference Range Comments CULTURE (BEAKER) (test No fungus isolated in 28 days jtsg=9648) FUNGUS SMEAR (BEAKER) (test <1+ yeast hjpp=7930) FUNGUS CULTURE + [id number] 16:19:00 Test Item Value Reference Range Comments CULTURE (BEAKER) (test No fungus isolated in 28 days qrjm=3559) FUNGUS SMEAR (BEAKER) (test No fungi seen vcoq=9946) FUNGUS CULTURE + [id number] 16:19:00 Test Item Value Reference Range Comments CULTURE (BEAKER) (test No fungus isolated in 28 days imwj=0422) FUNGUS SMEAR (BEAKER) (test <1+ yeast efej=2566) RAD, CHEST, 2 [id number] 08:51:00Reason for Exam:->PLEURAL EFFUSIONFINAL REPORT EXAMINATION: PA and lateral views of the chest. COMPARISON: 04/25/2019 CLINICAL HISTORY: Follow-up pleural effusion, status post VATS. DISCUSSION: The lungs arewell inflated. Interval improvement in right basilar airspace disease relative to 04/25/2019. Large lucency in the right lower hemithorax may represent a bulla or pneumatocele. No new consolidations. Small bilateral pleural effusions, right larger than left, stable. Right lateral pleural thickening likely postsurgical. Cardiomediastinal contour is stable with atherosclerotic calcification of the thoracic aorta and multiple median sternotomy wires. No acute osseous abnormality. Gastrostomy catheter partially visualized projecting over the left upper quadrant. IMPRESSION: Interval improvement in rightlower lobe airspace disease with residual bulla or pneumatocele in the right lower chest. Stable small bilateral pleural effusions and probable reactive right pleural change. Signed: Fredi Hua MDReport Verified Date/Time: 05/09/2019 08:51:36 Reading Location: [facility] Reading Room [address] [place] [address] AFB CULTURE + SMEAR (NON-SPUTUM)2019-05-06 22:55:00 Test Item Value Reference Range Comments CULTURE (BEAKER) (test No acid-fast bacilli isolated qtsp=3235) in 42 days AFB SMEAR (BEAKER) (test No acid fast bacilli seen oqbg=040) AFB CULTURE + SMEAR (NON-SPUTUM)2019-05-06 22:55:00 Test Item Value Reference Range Comments CULTURE (BEAKER) (test No acid-fast bacilli isolated yxud=7388) in 42 days AFB SMEAR (BEAKER) (test No acid fast bacilli seen nixc=275) AFB CULTURE + SMEAR (NON-SPUTUM)2019-05-06 22:55:00 Test Item Value Reference Range Comments CULTURE (BEAKER) (test No acid-fast bacilli isolated szpq=0910) in 42 days AFB SMEAR (BEAKER) (test No acid fast bacilli seen kdmf=863) AFB CULTURE + SMEAR (NON-SPUTUM)2019-05-06 22:55:00 Test Item Value Reference Range Comments CULTURE (BEAKER) (test No acid-fast bacilli isolated szrk=0033) in 42 days AFB SMEAR (BEAKER) (test No acid fast bacilli seen hmbi=863) FUNGUS CULTURE + [id number] 17:35:00 Test Item Value Reference Range Comments CULTURE (BEAKER) (test nzxn=5736) <1+ Ana albicans FUNGUS SMEAR (BEAKER) (test No fungi seen eqej=7692) RAD, CHEST, 1 VIEW, NON [id number] 08:25:00Reason for exam:->s/p R VATSShould this be performed at the bedside?->YesFINAL REPORT RAD, CHEST, 1 VIEW, NON DEPT INDICATION: s/p R VATS COMPARISON: Prior day's exam FINDINGS: Portable frontal view of the chest. IMPRESSION: Limited by underpenetration.Support Lines: None. Lungs and pleura: Consolidative airspace disease and tracking effusion on the right are unchanged. There is a persistent trace left effusion. No pneumothorax.Heart and mediastinum: Stable contours. Stable surgical changes.Additional findings: None. Signed: JR Jara Robert MDReport Verified Date/Time: 04/25/2019 08:25:05 Reading Location: [facility] Radiology Reading Room CBC W/PLT COUNT & AUTO [id number] 07:17:00 Test Item Value Reference Range Comments WHITE BLOOD CELL COUNT (BEAKER) (test nldu=038) 10.6 K/ L 3.5-10.5 RED BLOOD CELL COUNT (BEAKER) (test lali=260) 3.46 M/ L 4.63-6.08 HEMOGLOBIN (BEAKER) (test nlux=306) 9.9 GM/DL 13.7-17.5 HEMATOCRIT (BEAKER) (test fqmw=337) 31.8 % 40.1-51.0 MEAN CORPUSCULAR VOLUME (BEAKER) (test kqhz=768) 91.9 fL 79.0-92.2 MEAN CORPUSCULAR HEMOGLOBIN (BEAKER) (test 28.6 pg 25.7-32.2 ssua=518) MEAN CORPUSCULAR HEMOGLOBIN CONC (BEAKER) (test 31.1 GM/DL 32.3-36.5 ctbe=362) RED CELL DISTRIBUTION WIDTH (BEAKER) (test 18.6 % 11.6-14.4 zetm=286) PLATELET COUNT (BEAKER) (test tfvc=792) 295 K/CU MM 150-450 MEAN PLATELET VOLUME (BEAKER) (test xzwu=592) 11.6 fL 9.4-12.4 NUCLEATED RED BLOOD CELLS (BEAKER) (test 0 /100 WBC 0-0 ykni=275) NEUTROPHILS RELATIVE PERCENT (BEAKER) (test 68 % ueqz=116) LYMPHOCYTES RELATIVE PERCENT (BEAKER) (test 17 % vlgd=239) MONOCYTES RELATIVE PERCENT (BEAKER) (test 10 % insd=395) EOSINOPHILS RELATIVE PERCENT (BEAKER) (test 4 % ovdw=753) BASOPHILS RELATIVE PERCENT (BEAKER) (test 1 % bgey=986) NEUTROPHILS ABSOLUTE COUNT (BEAKER) (test 7.18 K/ L 1.78-5.38 dlqm=530) LYMPHOCYTES ABSOLUTE COUNT (BEAKER) (test 1.77 K/ L 1.32-3.57 ouku=832) MONOCYTES ABSOLUTE COUNT (BEAKER) (test 1.06 K/ L 0.30-0.82 lbrm=772) EOSINOPHILS ABSOLUTE COUNT (BEAKER) (test 0.47 K/ L 0.04-0.54 ytnc=900) BASOPHILS ABSOLUTE COUNT (BEAKER) (test 0.05 K/ L 0.01-0.08 tsyi=126) IMMATURE GRANULOCYTES-RELATIVE PERCENT (BEAKER) 1 % 0-1 (test bxlg=8533) [id number] 06:30:00 Test Item Value Reference Range Comments PHOSPHORUS (BEAKER) (test zrqx=656) 2.6 mg/dL 2.3-4.7 Collection Development Librarian ID - PIBECKY [id number] 06:30:00 Test Item Value Reference Range Comments MAGNESIUM (BEAKER) (test vvbg=028) 1.7 mg/dL 1.6-2.6 Collection Development Librarian ID - EMILIE LBASIC METABOLIC [id number] 06:30:00 Test Item Value Reference Range Comments SODIUM (BEAKER) (test 144 meq/L 136-145 pamq=133) POTASSIUM (BEAKER) (test 3.3 meq/L 3.5-5.1 zrfr=199) CHLORIDE (BEAKER) (test 110 meq/L 98-107 wtyy=137) CO2 (BEAKER) (test 29 meq/L 22-29 hypm=571) BLOOD UREA NITROGEN 22 mg/dL 7-21 (BEAKER) (test lznn=352) CREATININE (BEAKER) (test 0.74 mg/dL 0.57-1.25 ludc=166) GLUCOSE RANDOM (BEAKER) 127 mg/dL 70-105 (test bvvx=826) CALCIUM (BEAKER) (test 7.7 mg/dL 8.4-10.2 itqx=586) EGFR (BEAKER) (test 106 mL/min/1.73 sq m ESTIMATED GFR IS NOT tnwd=7532) ACCURATE CREATININE CLEARANCE IN PREDICTING GLOMERULAR FILTRATION RATE. ESTIMATED GFR IS NOT APPLICABLE FOR DIALYSIS PATIENTS. Collection Development Librarian ANGELI PHAN LRAD, CHEST, 1 VIEW, NON [id number] 09:38:00Reason for exam:->s/p R VATSShould this be performed at the bedside?->YesFINAL REPORT TECHNIQUE: Single view of the chest. COMPARISON: Chest X-ray performed one day earlier FINDINGS: Right-sided pleural-parenchymal disease again noted, stable. There is a small left pleural effusion. Lungs otherwise grossly clear. No gross pneumothorax.No gross new lung parenchymal changes. Cardiac silhouette is enlarged. Postsurgical changes in the mediastinum noted. IMPRESSION: 1. No significant interval change. Signed: Aiden Greer MDReport Verified Date/Time: 04/24/2019 09:38:07 Reading Location: [facility] Radiology Reading Room Electronically signed by: AIDEN GREER M.D. on 09:38 AMBASIC METABOLIC [id number] 06:26:00 Test Item Value Reference Range Comments SODIUM (BEAKER) (test 143 meq/L 136-145 kksj=342) POTASSIUM (BEAKER) (test 3.4 meq/L 3.5-5.1 kiow=715) CHLORIDE (BEAKER) (test 110 meq/L 98-107 omiz=840) CO2 (BEAKER) (test 27 meq/L 22-29 bokk=204) BLOOD UREA NITROGEN 23 mg/dL 7-21 (BEAKER) (test sbxg=986) CREATININE (BEAKER) (test 0.77 mg/dL 0.57-1.25 tnya=820) GLUCOSE RANDOM (BEAKER) 115 mg/dL 70-105 (test ogwp=780) CALCIUM (BEAKER) (test 7.6 mg/dL 8.4-10.2 akkg=933) EGFR (BEAKER) (test 102 mL/min/1.73 sq m ESTIMATED GFR IS NOT uzug=8780) ACCURATE CREATININE CLEARANCE IN PREDICTING GLOMERULAR FILTRATION RATE. ESTIMATED GFR IS NOT APPLICABLE FOR DIALYSIS PATIENTS. Collection Development Librarian ANGELI Sultana PHAN LSpecimen slightly [id number] 06:19:00 Test Item Value Reference Range Comments PHOSPHORUS (BEAKER) (test toxx=711) 3.3 mg/dL 2.3-4.7 Collection Development Librarian ID - EMILIE [id number] 06:19:00 Test Item Value Reference Range Comments MAGNESIUM (BEAKER) (test dhdu=942) 1.8 mg/dL 1.6-2.6 Collection Development Librarian ID - EMILIE LCBC W/PLT COUNT & AUTO [id number] 04:39:00 Test Item Value Reference Range Comments WHITE BLOOD CELL COUNT (BEAKER) (test qhui=737) 10.8 K/ L 3.5-10.5 RED BLOOD CELL COUNT (BEAKER) (test kktp=148) 3.54 M/ L 4.63-6.08 HEMOGLOBIN (BEAKER) (test eype=430) 9.8 GM/DL 13.7-17.5 HEMATOCRIT (BEAKER) (test pfzb=065) 32.8 % 40.1-51.0 MEAN CORPUSCULAR VOLUME (BEAKER) (test gniu=355) 92.7 fL 79.0-92.2 MEAN CORPUSCULAR HEMOGLOBIN (BEAKER) (test 27.7 pg 25.7-32.2 pycl=106) MEAN CORPUSCULAR HEMOGLOBIN CONC (BEAKER) (test 29.9 GM/DL 32.3-36.5 pzif=122) RED CELL DISTRIBUTION WIDTH (BEAKER) (test 18.7 % 11.6-14.4 ptia=467) PLATELET COUNT (BEAKER) (test ihiz=151) 287 K/CU MM 150-450 MEAN PLATELET VOLUME (BEAKER) (test yjwv=862) 10.5 fL 9.4-12.4 NUCLEATED RED BLOOD CELLS (BEAKER) (test 0 /100 WBC 0-0 lntz=024) NEUTROPHILS RELATIVE PERCENT (BEAKER) (test 62 % zilk=553) LYMPHOCYTES RELATIVE PERCENT (BEAKER) (test 24 % iabq=003) MONOCYTES RELATIVE PERCENT (BEAKER) (test 9 % qcap=425) EOSINOPHILS RELATIVE PERCENT (BEAKER) (test 5 % zaxp=924) BASOPHILS RELATIVE PERCENT (BEAKER) (test 1 % hdcd=972) NEUTROPHILS ABSOLUTE COUNT (BEAKER) (test 6.66 K/ L 1.78-5.38 bwlc=004) LYMPHOCYTES ABSOLUTE COUNT (BEAKER) (test 2.53 K/ L 1.32-3.57 vlmr=097) MONOCYTES ABSOLUTE COUNT (BEAKER) (test 0.96 K/ L 0.30-0.82 qshs=258) EOSINOPHILS ABSOLUTE COUNT (BEAKER) (test 0.54 K/ L 0.04-0.54 muhr=491) BASOPHILS ABSOLUTE COUNT (BEAKER) (test 0.05 K/ L 0.01-0.08 vscs=269) IMMATURE GRANULOCYTES-RELATIVE PERCENT (BEAKER) 0 % 0-1 (test qpdh=4407) FL, ESOPH, SWALLOW FUNCTION, WITH CINE OR [id number] 14:55:00Reason for exam:->dysphagiaFINAL REPORT Modified barium swallow exam with speech pathology service CLINICAL HISTORY: dysphagia IMPRESSION: Please see the speech pathology service report for details. Barium contrast of multiple consistencies is given to the patient to swallow. Fluoroscopic observation is performed during swallowing. Small aspiration on honey consistency. Fluoro time: 0.9 minutes Number of images: 19 Signed: Maine Moncada Verified Date/Time: 04/23/2019 14:55:57 Reading Location: [address] RAD , CHEST, 1 VIEW, NON [id number] 14:41:00Reason for exam:->s/p ct removalShould this be performed at the bedside?->YesFINAL REPORT RAD, CHEST, 1 VIEW, NON DEPT INDICATION: s/p ct removal COMPARISON: 7 hours prior FINDINGS: Portable frontal view of the chest. IMPRESSION: Support Lines: Right thoracostomy tube has been removed. Lungs and pleura: Unchanged interstitial and pleural opacities. Novisible pneumothorax.Heart and mediastinum: Stable contours. Stable surgical changes.Additional findings: None. Signed: JR Jara Robert MDReport Verified Date/Time: 04/23/2019 14:41:23 Reading Location: [facility] Radiology Reading Room RAD, CHEST, 1 VIEW, NON [id number] 09:12:00Reason for exam:->s/p R VATSShould this be performed at the bedside?->YesFINAL REPORT RAD , CHEST, 1 VIEW, NON DEPT INDICATION: s/p R VATS COMPARISON: Prior day's exam FINDINGS: Portable frontal view of the chest. IMPRESSION: Support Lines: Basilar thoracostomy tube on the right is grossly unchanged given differences in patient positioning. Lungs and pleura: Coarsened interstitial markings again noted bilaterally, improved on the right but remain present. Small right effusion tracking laterally to the apex. No pneumothorax.Heart and mediastinum: Stable contours. Stable surgical changes.Additional findings: None. Signed: JR Jara Robert MDRepanni Verified Date/Time: 04/23/2019 09:12:53 Reading Location: [facility] Radiology Reading Room BASIC METABOLIC [id number] 05:25:00 Test Item Value Reference Range Comments SODIUM (BEAKER) (test 144 meq/L 136-145 xksg=903) POTASSIUM (BEAKER) (test 3.3 meq/L 3.5-5.1 myrr=207) CHLORIDE (BEAKER) (test 111 meq/L 98-107 npij=939) CO2 (BEAKER) (test 29 meq/L 22-29 vuhm=366) BLOOD UREA NITROGEN 24 mg/dL 7-21 (BEAKER) (test cftu=389) CREATININE (BEAKER) (test 0.78 mg/dL 0.57-1.25 gioo=746) GLUCOSE RANDOM (BEAKER) 118 mg/dL 70-105 (test stdd=437) CALCIUM (BEAKER) (test 7.5 mg/dL 8.4-10.2 lqdd=898) EGFR (BEAKER) (test 100 mL/min/1.73 sq m ESTIMATED GFR IS NOT sqsx=7512) ACCURATE CREATININE CLEARANCE IN PREDICTING GLOMERULAR FILTRATION RATE. ESTIMATED GFR IS NOT APPLICABLE FOR DIALYSIS PATIENTS. Collection Development Librarian ID - ELISSA [id number] 05:24:00 Test Item Value Reference Range Comments PREALBUMIN (BEAKER) (test dgzl=609) 7 mg/dL 14-45 Collection Development Librarian ID - ELISSA [id number] 05:23:00 Test Item Value Reference Range Comments PHOSPHORUS (BEAKER) (test fixz=997) 2.8 mg/dL 2.3-4.7 Collection Development Librarian ID - ELISSA [id number] 05:23:00 Test Item Value Reference Range Comments MAGNESIUM (BEAKER) (test jxle=047) 1.9 mg/dL 1.6-2.6 Collection Development Librarian ID - ELISSA MCBC W/PLT COUNT & AUTO [id number] 04:58:00 Test Item Value Reference Range Comments WHITE BLOOD CELL COUNT (BEAKER) (test myda=070) 11.1 K/ L 3.5-10.5 RED BLOOD CELL COUNT (BEAKER) (test uzrn=490) 3.34 M/ L 4.63-6.08 HEMOGLOBIN (BEAKER) (test skyj=499) 9.4 GM/DL 13.7-17.5 HEMATOCRIT (BEAKER) (test bonu=521) 30.7 % 40.1-51.0 MEAN CORPUSCULAR VOLUME (BEAKER) (test cuzj=354) 91.9 fL 79.0-92.2 MEAN CORPUSCULAR HEMOGLOBIN (BEAKER) (test 28.1 pg 25.7-32.2 bgpp=697) MEAN CORPUSCULAR HEMOGLOBIN CONC (BEAKER) (test 30.6 GM/DL 32.3-36.5 zagg=525) RED CELL DISTRIBUTION WIDTH (BEAKER) (test 19.0 % 11.6-14.4 ymqq=826) PLATELET COUNT (BEAKER) (test rtmb=343) 271 K/CU MM 150-450 MEAN PLATELET VOLUME (BEAKER) (test pcmu=903) 10.9 fL 9.4-12.4 NUCLEATED RED BLOOD CELLS (BEAKER) (test 0 /100 WBC 0-0 liwh=804) NEUTROPHILS RELATIVE PERCENT (BEAKER) (test 66 % hvmu=203) LYMPHOCYTES RELATIVE PERCENT (BEAKER) (test 19 % abdi=016) MONOCYTES RELATIVE PERCENT (BEAKER) (test 11 % unja=521) EOSINOPHILS RELATIVE PERCENT (BEAKER) (test 4 % wskl=429) BASOPHILS RELATIVE PERCENT (BEAKER) (test 1 % pegf=088) NEUTROPHILS ABSOLUTE COUNT (BEAKER) (test 7.29 K/ L 1.78-5.38 kass=137) LYMPHOCYTES ABSOLUTE COUNT (BEAKER) (test 2.15 K/ L 1.32-3.57 xdzd=487) MONOCYTES ABSOLUTE COUNT (BEAKER) (test 1.16 K/ L 0.30-0.82 qfyi=047) EOSINOPHILS ABSOLUTE COUNT (BEAKER) (test 0.40 K/ L 0.04-0.54 zhxg=460) BASOPHILS ABSOLUTE COUNT (BEAKER) (test 0.05 K/ L 0.01-0.08 zays=040) IMMATURE GRANULOCYTES-RELATIVE PERCENT (BEAKER) 1 % 0-1 (test uonj=3589) RAD, CHEST, 1 VIEW, NON [id number] 10:13:00Reason for exam:->s/p R VATSShould this be performed at the bedside?->YesFINAL REPORT RAD, CHEST, 1 VIEW, NON DEPT INDICATION: s/p R VATS COMPARISON: Prior day's exam FINDINGS: Portable frontal view of the chest. IMPRESSION: Support Lines: A singlethoracostomy tube on the right has been removed. Basilar tube remains in place. Lungs and pleura: Diffuse airspace and interstitial disease on the right again noted with decreased apical pleural capping compared to the prior day. Bilateral pleural effusions noted, greater on the right. No visible pneumothorax.Heart and mediastinum: Stable contours. Stable surgical changes.Additional findings: None. Signed: JR Jara Robert MDReport Verified Date/Time: 04/22/2019 10:13:43 Reading Location: [facility] Radiology Reading Room Electronically signed by: CHRISTIE JARA on 10:13 AMBASIC METABOLIC [id number] 04:59:00 Test Item Value Reference Range Comments SODIUM (BEAKER) (test 146 meq/L 136-145 nnsh=940) POTASSIUM (BEAKER) (test 4.0 meq/L 3.5-5.1 neth=135) CHLORIDE (BEAKER) (test 115 meq/L 98-107 jrfq=103) CO2 (BEAKER) (test 29 meq/L 22-29 yprd=873) BLOOD UREA NITROGEN 21 mg/dL 7-21 (BEAKER) (test envq=699) CREATININE (BEAKER) (test 0.74 mg/dL 0.57-1.25 fcfk=708) GLUCOSE RANDOM (BEAKER) 108 mg/dL 70-105 (test qafn=279) CALCIUM (BEAKER) (test 7.5 mg/dL 8.4-10.2 vsfx=868) EGFR (BEAKER) (test 106 mL/min/1.73 sq m ESTIMATED GFR IS NOT enme=6318) ACCURATE CREATININE CLEARANCE IN PREDICTING GLOMERULAR FILTRATION RATE. ESTIMATED GFR IS NOT APPLICABLE FOR DIALYSIS PATIENTS. Collection Development Librarian ID - ELISSA [id number] 04:57:00 Test Item Value Reference Range Comments PHOSPHORUS (BEAKER) (test jazn=479) 2.7 mg/dL 2.3-4.7 Collection Development Librarian ID - ELISSA [id number] 04:57:00 Test Item Value Reference Range Comments MAGNESIUM (BEAKER) (test ymoy=740) 1.9 mg/dL 1.6-2.6 Collection Development Librarian ID - ELISSA MCBC W/PLT COUNT & AUTO [id number] 03:33:00 Test Item Value Reference Range Comments WHITE BLOOD CELL COUNT (BEAKER) (test xhde=328) 10.5 K/ L 3.5-10.5 RED BLOOD CELL COUNT (BEAKER) (test kvov=055) 3.53 M/ L 4.63-6.08 HEMOGLOBIN (BEAKER) (test uqdr=316) 10.0 GM/DL 13.7-17.5 HEMATOCRIT (BEAKER) (test hgzt=059) 32.8 % 40.1-51.0 MEAN CORPUSCULAR VOLUME (BEAKER) (test ipmx=596) 92.9 fL 79.0-92.2 MEAN CORPUSCULAR HEMOGLOBIN (BEAKER) (test 28.3 pg 25.7-32.2 rxyk=456) MEAN CORPUSCULAR HEMOGLOBIN CONC (BEAKER) (test 30.5 GM/DL 32.3-36.5 kryi=213) RED CELL DISTRIBUTION WIDTH (BEAKER) (test 19.2 % 11.6-14.4 ywrp=555) PLATELET COUNT (BEAKER) (test omom=321) 272 K/CU MM 150-450 MEAN PLATELET VOLUME (BEAKER) (test mbil=788) 11.1 fL 9.4-12.4 NUCLEATED RED BLOOD CELLS (BEAKER) (test 0 /100 WBC 0-0 iguy=115) NEUTROPHILS RELATIVE PERCENT (BEAKER) (test 67 % kpiw=385) LYMPHOCYTES RELATIVE PERCENT (BEAKER) (test 18 % npyv=229) MONOCYTES RELATIVE PERCENT (BEAKER) (test 11 % gdrf=301) EOSINOPHILS RELATIVE PERCENT (BEAKER) (test 5 % jdec=281) BASOPHILS RELATIVE PERCENT (BEAKER) (test 1 % wjwi=232) NEUTROPHILS ABSOLUTE COUNT (BEAKER) (test 7.00 K/ L 1.78-5.38 hcuc=065) LYMPHOCYTES ABSOLUTE COUNT (BEAKER) (test 1.84 K/ L 1.32-3.57 wkqj=217) MONOCYTES ABSOLUTE COUNT (BEAKER) (test 1.10 K/ L 0.30-0.82 vxoo=846) EOSINOPHILS ABSOLUTE COUNT (BEAKER) (test 0.47 K/ L 0.04-0.54 kybz=845) BASOPHILS ABSOLUTE COUNT (BEAKER) (test 0.06 K/ L 0.01-0.08 zlee=306) IMMATURE GRANULOCYTES-RELATIVE PERCENT (BEAKER) 0 % 0-1 (test sanp=6381) ANAEROBIC [id number] 17:25:00 Test Item Value Reference Range Comments CULTURE (BEAKER) (test tqqx=3981) No anaerobes isolated ANAEROBIC [id number] 17:24:00 Test Item Value Reference Range Comments CULTURE (BEAKER) (test anyp=1253) No anaerobes isolated ANAEROBIC [id number] 17:24:00 Test Item Value Reference Range Comments CULTURE (BEAKER) (test nnza=7589) No anaerobes isolated ANAEROBIC [id number] 17:23:00 Test Item Value Reference Range Comments CULTURE (BEAKER) (test mpas=3451) No anaerobes isolated ANAEROBIC [id number] 17:23:00 Test Item Value Reference Range Comments CULTURE (BEAKER) (test ohuy=2825) No anaerobes isolated BASIC METABOLIC [id number] 12:47:00 Test Item Value Reference Range Comments SODIUM (BEAKER) (test 146 meq/L 136-145 mssk=740) POTASSIUM (BEAKER) (test 3.8 meq/L 3.5-5.1 Specimen slightly kksp=572) hemolyzed CHLORIDE (BEAKER) (test 111 meq/L 98-107 amqg=505) CO2 (BEAKER) (test 31 meq/L 22-29 aijn=824) BLOOD UREA NITROGEN 23 mg/dL 7-21 (BEAKER) (test utnv=507) CREATININE (BEAKER) (test 0.71 mg/dL 0.57-1.25 Specimen slightly ekgl=254) hemolyzed GLUCOSE RANDOM (BEAKER) 92 mg/dL 70-105 (test bpjf=522) CALCIUM (BEAKER) (test 7.5 mg/dL 8.4-10.2 xpiu=901) EGFR (BEAKER) (test 112 mL/min/1.73 sq m ESTIMATED GFR IS NOT prkx=1167) ACCURATE CREATININE CLEARANCE IN PREDICTING GLOMERULAR FILTRATION RATE. ESTIMATED GFR IS NOT APPLICABLE FOR DIALYSIS PATIENTS. Collection Development Librarian ID - SONIA [id number] 12:46:00 Test Item Value Reference Range Comments MAGNESIUM (BEAKER) (test 2.2 mg/dL 1.6-2.6 Specimen slightly hemolyzed gfhg=195) Collection Development Librarian ID Sultana SONIA FBASIC METABOLIC [id number] 05:36:00 Test Item Value Reference Range Comments SODIUM (BEAKER) (test 144 meq/L 136-145 wfvg=851) POTASSIUM (BEAKER) (test 3.4 meq/L 3.5-5.1 wcqv=024) CHLORIDE (BEAKER) (test 111 meq/L 98-107 rmtd=381) CO2 (BEAKER) (test 28 meq/L 22-29 exhu=218) BLOOD UREA NITROGEN 22 mg/dL 7-21 (BEAKER) (test eoqc=847) CREATININE (BEAKER) (test 0.71 mg/dL 0.57-1.25 yfgl=613) GLUCOSE RANDOM (BEAKER) 102 mg/dL 70-105 (test vwwi=405) CALCIUM (BEAKER) (test 7.4 mg/dL 8.4-10.2 nfgi=310) EGFR (BEAKER) (test 112 mL/min/1.73 sq m ESTIMATED GFR IS NOT pwjw=7993) ACCURATE CREATININE CLEARANCE IN PREDICTING GLOMERULAR FILTRATION RATE. ESTIMATED GFR IS NOT APPLICABLE FOR DIALYSIS PATIENTS. Collection Development Librarian ID Sultana FLORES [id number] 05:32:00 Test Item Value Reference Range Comments PHOSPHORUS (BEAKER) (test ergr=550) 3.4 mg/dL 2.3-4.7 Collection Development Librarian ID - SANDRA [id number] 05:32:00 Test Item Value Reference Range Comments MAGNESIUM (BEAKER) (test ceff=718) 2.0 mg/dL 1.6-2.6 Collection Development Librarian ID - SANDRA WCBC W/PLT COUNT & AUTO [id number] 05:07:00 Test Item Value Reference Range Comments WHITE BLOOD CELL COUNT (BEAKER) (test qykd=402) 7.3 K/ L 3.5-10.5 RED BLOOD CELL COUNT (BEAKER) (test srgb=367) 3.51 M/ L 4.63-6.08 HEMOGLOBIN (BEAKER) (test fgxk=848) 10.0 GM/DL 13.7-17.5 HEMATOCRIT (BEAKER) (test sxrn=654) 32.5 % 40.1-51.0 MEAN CORPUSCULAR VOLUME (BEAKER) (test qctd=319) 92.6 fL 79.0-92.2 MEAN CORPUSCULAR HEMOGLOBIN (BEAKER) (test 28.5 pg 25.7-32.2 twao=039) MEAN CORPUSCULAR HEMOGLOBIN CONC (BEAKER) (test 30.8 GM/DL 32.3-36.5 khup=240) RED CELL DISTRIBUTION WIDTH (BEAKER) (test 19.0 % 11.6-14.4 vcvo=686) PLATELET COUNT (BEAKER) (test lrbj=140) 221 K/CU MM 150-450 MEAN PLATELET VOLUME (BEAKER) (test icjm=604) 10.6 fL 9.4-12.4 NUCLEATED RED BLOOD CELLS (BEAKER) (test 0 /100 WBC 0-0 aggo=978) NEUTROPHILS RELATIVE PERCENT (BEAKER) (test 47 % giro=082) LYMPHOCYTES RELATIVE PERCENT (BEAKER) (test 32 % cuex=223) MONOCYTES RELATIVE PERCENT (BEAKER) (test 13 % iopi=491) EOSINOPHILS RELATIVE PERCENT (BEAKER) (test 7 % revu=260) BASOPHILS RELATIVE PERCENT (BEAKER) (test 1 % zsis=853) NEUTROPHILS ABSOLUTE COUNT (BEAKER) (test 3.43 K/ L 1.78-5.38 kzlw=467) LYMPHOCYTES ABSOLUTE COUNT (BEAKER) (test 2.31 K/ L 1.32-3.57 yome=309) MONOCYTES ABSOLUTE COUNT (BEAKER) (test 0.95 K/ L 0.30-0.82 fenw=732) EOSINOPHILS ABSOLUTE COUNT (BEAKER) (test 0.54 K/ L 0.04-0.54 mtmp=093) BASOPHILS ABSOLUTE COUNT (BEAKER) (test 0.04 K/ L 0.01-0.08 wyac=117) IMMATURE GRANULOCYTES-RELATIVE PERCENT (BEAKER) 0 % 0-1 (test vsrm=9927) RAD, CHEST, 1 VIEW, NON [id number] 04:30:00Reason for exam:->s/p R VATSShould this be performed at the bedside?->YesFINAL REPORT RAD, CHEST, 1 VIEW, NON DEPT INDICATION: s/p R VATS COMPARISON: Prior day's exam FINDINGS: Portable frontal view of the chest. IMPRESSION: Support Lines: A right chest tube has been removed. Other two right chest tubes are stable. Lungs and pleura: Unchanged right greater than left parenchymal opacities and small right pleural effusion. No discernible pneumothorax.Heart and mediastinum: Stable contours. Stable surgical changes.Additional findings: None. Signed:Tomasa Luque MDReport Verified Date/Time: 04/21/2019 04:30:21 BASIC METABOLIC [id number] 16:21:00 Test Item Value Reference Range Comments SODIUM (BEAKER) (test 146 meq/L 136-145 kudu=426) POTASSIUM (BEAKER) (test 3.6 meq/L 3.5-5.1 irpb=899) CHLORIDE (BEAKER) (test 111 meq/L 98-107 issp=043) CO2 (BEAKER) (test 32 meq/L 22-29 opcm=670) BLOOD UREA NITROGEN 22 mg/dL 7-21 (BEAKER) (test hohp=492) CREATININE (BEAKER) (test 0.74 mg/dL 0.57-1.25 hwfg=811) GLUCOSE RANDOM (BEAKER) 118 mg/dL 70-105 (test kzxq=348) CALCIUM (BEAKER) (test 7.7 mg/dL 8.4-10.2 ccud=118) EGFR (BEAKER) (test 106 mL/min/1.73 sq m ESTIMATED GFR IS NOT ezph=1558) ACCURATE CREATININE CLEARANCE IN PREDICTING GLOMERULAR FILTRATION RATE. ESTIMATED GFR IS NOT APPLICABLE FOR DIALYSIS PATIENTS. Collection Development Librarian ID - SONIA [id number] 15:52:00 Test Item Value Reference Range Comments PHOSPHORUS (BEAKER) (test jmlj=562) 2.7 mg/dL 2.3-4.7 Collection Development Librarian ID - SONIA [id number] 15:52:00 Test Item Value Reference Range Comments MAGNESIUM (BEAKER) (test ghpg=104) 2.0 mg/dL 1.6-2.6 Collection Development Librarian ID - SONIA FCBC W/PLT COUNT & AUTO [id number] 15:27: 00 Test Item Value Reference Range Comments WHITE BLOOD CELL COUNT (BEAKER) (test iouh=583) 8.5 K/ L 3.5-10.5 RED BLOOD CELL COUNT (BEAKER) (test pwcg=655) 3.26 M/ L 4.63-6.08 HEMOGLOBIN (BEAKER) (test rngr=798) 9.4 GM/DL 13.7-17.5 HEMATOCRIT (BEAKER) (test ehxl=246) 29.4 % 40.1-51.0 MEAN CORPUSCULAR VOLUME (BEAKER) (test owys=089) 90.2 fL 79.0-92.2 MEAN CORPUSCULAR HEMOGLOBIN (BEAKER) (test 28.8 pg 25.7-32.2 iknj=961) MEAN CORPUSCULAR HEMOGLOBIN CONC (BEAKER) (test 32.0 GM/DL 32.3-36.5 wfpk=764) RED CELL DISTRIBUTION WIDTH (BEAKER) (test 18.8 % 11.6-14.4 tyju=799) PLATELET COUNT (BEAKER) (test dccp=989) 244 K/CU MM 150-450 MEAN PLATELET VOLUME (BEAKER) (test cwhw=915) 10.6 fL 9.4-12.4 NUCLEATED RED BLOOD CELLS (BEAKER) (test 0 /100 WBC 0-0 eybo=803) NEUTROPHILS RELATIVE PERCENT (BEAKER) (test 60 % ysqn=852) LYMPHOCYTES RELATIVE PERCENT (BEAKER) (test 22 % xvkq=533) MONOCYTES RELATIVE PERCENT (BEAKER) (test 13 % xzaa=520) EOSINOPHILS RELATIVE PERCENT (BEAKER) (test 4 % rqhk=225) BASOPHILS RELATIVE PERCENT (BEAKER) (test 1 % jfnt=663) NEUTROPHILS ABSOLUTE COUNT (BEAKER) (test 5.10 K/ L 1.78-5.38 ivoc=588) LYMPHOCYTES ABSOLUTE COUNT (BEAKER) (test 1.84 K/ L 1.32-3.57 bwzc=506) MONOCYTES ABSOLUTE COUNT (BEAKER) (test 1.11 K/ L 0.30-0.82 oyah=035) EOSINOPHILS ABSOLUTE COUNT (BEAKER) (test 0.37 K/ L 0.04-0.54 gwbb=055) BASOPHILS ABSOLUTE COUNT (BEAKER) (test 0.04 K/ L 0.01-0.08 qlqy=018) IMMATURE GRANULOCYTES-RELATIVE PERCENT (BEAKER) 0 % 0-1 (test gvtm=9801) POCT-GLUCOSE [id number] 12:28:00 Test Item Value Reference Range Comments POC-GLUCOSE METER (BEAKER) 104 mg/dL 70-110 : TESTED AT [address] (test jelw=9411) [facility], [address]: Collection Development Librarian/Cloth Shrinker HH=[id number] for JON OLIVA RAD, CHEST, 1 VIEW, NON [id number] 08:05:00Reason for exam:->s/p R VATSShould this be performed at the bedside?->YesFINAL REPORT RAD, CHEST, 1 VIEW, NON DEPT INDICATION: s/p R VATS COMPARISON: Prior day's exam FINDINGS: Portable frontal view of the chest. IMPRESSION: Support Lines: Bilateral chest tubes and sternotomy wires are unchanged. Lungs and pleura: Layering effusions, pulmonary edema and trace right apical pneumothorax are unchanged Heart and mediastinum: Stable contours. Additional findings: None. Signed: Alicia Garcia MDRepanni Verified Date/Time: 04/20/2019 08:05:30 Reading Location: [facility] C013 Neuro Reading Room BASIC METABOLIC [id number] 05:14:00 Test Item Value Reference Range Comments SODIUM (BEAKER) (test 143 meq/L 136-145 xelc=281) POTASSIUM (BEAKER) (test 3.7 meq/L 3.5-5.1 grbw=528) CHLORIDE (BEAKER) (test 112 meq/L 98-107 bmhp=797) CO2 (BEAKER) (test 27 meq/L 22-29 fnhw=426) BLOOD UREA NITROGEN 24 mg/dL 7-21 (BEAKER) (test nyea=618) CREATININE (BEAKER) (test 0.70 mg/dL 0.57-1.25 grso=766) GLUCOSE RANDOM (BEAKER) 129 mg/dL 70-105 (test yhin=284) CALCIUM (BEAKER) (test 7.4 mg/dL 8.4-10.2 fehh=197) EGFR (BEAKER) (test 114 mL/min/1.73 sq m ESTIMATED GFR IS NOT egaj=0470) ACCURATE CREATININE CLEARANCE IN PREDICTING GLOMERULAR FILTRATION RATE. ESTIMATED GFR IS NOT APPLICABLE FOR DIALYSIS PATIENTS. Collection Development Librarian ID - [id number] 04:57:00 Test Item Value Reference Range Comments PHOSPHORUS (BEAKER) (test atqk=755) 3.9 mg/dL 2.3-4.7 Collection Development Librarian ID - [id number] 04:57:00 Test Item Value Reference Range Comments MAGNESIUM (BEAKER) (test ektb=844) 2.2 mg/dL 1.6-2.6 Collection Development Librarian ID - DBCBC W/PLT COUNT & AUTO [id number] 03:45:00 Test Item Value Reference Range Comments WHITE BLOOD CELL COUNT (BEAKER) (test zvdu=687) 7.0 K/ L 3.5-10.5 RED BLOOD CELL COUNT (BEAKER) (test hmhn=465) 3.09 M/ L 4.63-6.08 HEMOGLOBIN (BEAKER) (test txvg=136) 8.6 GM/DL 13.7-17.5 HEMATOCRIT (BEAKER) (test fphw=642) 28.5 % 40.1-51.0 MEAN CORPUSCULAR VOLUME (BEAKER) (test rtnx=901) 92.2 fL 79.0-92.2 MEAN CORPUSCULAR HEMOGLOBIN (BEAKER) (test 27.8 pg 25.7-32.2 hmgq=264) MEAN CORPUSCULAR HEMOGLOBIN CONC (BEAKER) (test 30.2 GM/DL 32.3-36.5 vhcs=825) RED CELL DISTRIBUTION WIDTH (BEAKER) (test 18.8 % 11.6-14.4 suoo=910) PLATELET COUNT (BEAKER) (test rsgr=226) 203 K/CU MM 150-450 MEAN PLATELET VOLUME (BEAKER) (test bilx=047) 10.7 fL 9.4-12.4 NUCLEATED RED BLOOD CELLS (BEAKER) (test 0 /100 WBC 0-0 ouzg=448) NEUTROPHILS RELATIVE PERCENT (BEAKER) (test 62 % yewk=111) LYMPHOCYTES RELATIVE PERCENT (BEAKER) (test 20 % fnor=057) MONOCYTES RELATIVE PERCENT (BEAKER) (test 12 % hmam=610) EOSINOPHILS RELATIVE PERCENT (BEAKER) (test 5 % pfxt=797) BASOPHILS RELATIVE PERCENT (BEAKER) (test 1 % uwyf=005) NEUTROPHILS ABSOLUTE COUNT (BEAKER) (test 4.33 K/ L 1.78-5.38 uger=038) LYMPHOCYTES ABSOLUTE COUNT (BEAKER) (test 1.43 K/ L 1.32-3.57 wudq=064) MONOCYTES ABSOLUTE COUNT (BEAKER) (test 0.86 K/ L 0.30-0.82 emje=770) EOSINOPHILS ABSOLUTE COUNT (BEAKER) (test 0.32 K/ L 0.04-0.54 smhg=198) BASOPHILS ABSOLUTE COUNT (BEAKER) (test 0.04 K/ L 0.01-0.08 zeua=536) IMMATURE GRANULOCYTES-RELATIVE PERCENT (BEAKER) 0 % 0-1 (test mybz=9189) POCT-GLUCOSE [id number] 00:19:00 Test Item Value Reference Range Comments POC-GLUCOSE METER (BEAKER) 115 mg/dL 70-110 : TESTED AT [facility] [address] [facility] (test lhzd=9902) [facility], [address]: Collection Development Librarian/Cloth Shrinker ET=[id number] for DANTE, SENORA FUNGUS CULTURE + [id number] 18:47:00 Test Item Value Reference Range Comments CULTURE (BEAKER) (test No fungus isolated in 28 days tapz=6289) FUNGUS SMEAR (BEAKER) (test No fungi seen tcfk=5308) FUNGUS CULTURE + [id number] 18:47:00 Test Item Value Reference Range Comments CULTURE (BEAKER) (test No fungus isolated in 28 days oukm=3796) FUNGUS SMEAR (BEAKER) (test No fungi seen cfdy=3498) FUNGUS CULTURE + [id number] 18:35:00 Test Item Value Reference Range Comments CULTURE (BEAKER) (test No fungus isolated in 28 days cwci=3942) FUNGUS SMEAR (BEAKER) (test No fungi seen rhlu=1287) [id number] 18:02:00 Test Item Value Reference Range Comments PHOSPHORUS (BEAKER) (test gpwh=398) 1.3 mg/dL 2.3-4.7 Collection Development Librarian ID - SONIA FBASIC METABOLIC [id number] 17:59:00 Test Item Value Reference Range Comments SODIUM (BEAKER) (test 144 meq/L 136-145 dywr=966) POTASSIUM (BEAKER) (test 3.7 meq/L 3.5-5.1 juwb=417) CHLORIDE (BEAKER) (test 111 meq/L 98-107 pmqv=127) CO2 (BEAKER) (test 30 meq/L 22-29 blgq=377) BLOOD UREA NITROGEN 24 mg/dL 7-21 (BEAKER) (test ivia=103) CREATININE (BEAKER) (test 0.71 mg/dL 0.57-1.25 xqxp=122) GLUCOSE RANDOM (BEAKER) 119 mg/dL 70-105 (test bmdn=999) CALCIUM (BEAKER) (test 7.8 mg/dL 8.4-10.2 cobh=157) EGFR (BEAKER) (test 112 mL/min/1.73 sq m ESTIMATED GFR IS NOT qfqq=0879) ACCURATE CREATININE CLEARANCE IN PREDICTING GLOMERULAR FILTRATION RATE. ESTIMATED GFR IS NOT APPLICABLE FOR DIALYSIS PATIENTS. Collection Development Librarian ID - SONIA [id number] 17:58:00 Test Item Value Reference Range Comments MAGNESIUM (BEAKER) (test momz=250) 2.1 mg/dL 1.6-2.6 Collection Development Librarian ID - SONIA FCBC W/PLT COUNT & AUTO [id number] 17:41: 00 Test Item Value Reference Range Comments WHITE BLOOD CELL COUNT (BEAKER) (test ufnf=295) 8.7 K/ L 3.5-10.5 RED BLOOD CELL COUNT (BEAKER) (test rilu=329) 3.36 M/ L 4.63-6.08 HEMOGLOBIN (BEAKER) (test swnq=631) 9.7 GM/DL 13.7-17.5 HEMATOCRIT (BEAKER) (test dscv=419) 29.9 % 40.1-51.0 MEAN CORPUSCULAR VOLUME (BEAKER) (test shfj=205) 89.0 fL 79.0-92.2 MEAN CORPUSCULAR HEMOGLOBIN (BEAKER) (test 28.9 pg 25.7-32.2 tfau=029) MEAN CORPUSCULAR HEMOGLOBIN CONC (BEAKER) (test 32.4 GM/DL 32.3-36.5 snyr=567) RED CELL DISTRIBUTION WIDTH (BEAKER) (test 18.6 % 11.6-14.4 idim=868) PLATELET COUNT (BEAKER) (test ljiq=680) 223 K/CU MM 150-450 MEAN PLATELET VOLUME (BEAKER) (test mpfn=649) 10.8 fL 9.4-12.4 NUCLEATED RED BLOOD CELLS (BEAKER) (test 0 /100 WBC 0-0 dkux=301) NEUTROPHILS RELATIVE PERCENT (BEAKER) (test 63 % umjs=073) LYMPHOCYTES RELATIVE PERCENT (BEAKER) (test 21 % dtnx=242) MONOCYTES RELATIVE PERCENT (BEAKER) (test 13 % eufu=583) EOSINOPHILS RELATIVE PERCENT (BEAKER) (test 2 % azzn=863) BASOPHILS RELATIVE PERCENT (BEAKER) (test 0 % gwil=457) NEUTROPHILS ABSOLUTE COUNT (BEAKER) (test 5.48 K/ L 1.78-5.38 vvtf=113) LYMPHOCYTES ABSOLUTE COUNT (BEAKER) (test 1.81 K/ L 1.32-3.57 bfib=469) MONOCYTES ABSOLUTE COUNT (BEAKER) (test 1.15 K/ L 0.30-0.82 lomt=103) EOSINOPHILS ABSOLUTE COUNT (BEAKER) (test 0.19 K/ L 0.04-0.54 vwvm=490) BASOPHILS ABSOLUTE COUNT (BEAKER) (test 0.03 K/ L 0.01-0.08 ftsz=222) IMMATURE GRANULOCYTES-RELATIVE PERCENT (BEAKER) 0 % 0-1 (test vfgb=1398) RAD, CHEST, 1 VIEW, NON [id number] 09:28:00Reason for exam:->s/p R VATSShould this be performed at the bedside?->YesFINAL REPORT RAD, CHEST, 1 VIEW, NON DEPT INDICATION: s/p R VATS COMPARISON: Prior day's exam FINDINGS: Portable frontal view of the chest. IMPRESSION: Support Lines: Two right-sided chest tubes and sternotomy wires Lungs and pleura: Layering right effusion, trace right apical pneumothorax and coarse interstitial opacities throughout the lungs are all unchanged Heart and mediastinum: Stable contours. Stable surgical changes.Additional findings: None. Signed: Alicia GarciaMDReport Verified Date/Time: 04/19/2019 09:28:51 Reading Location: [facility] C013V Neuro Reading Room BASIC METABOLIC [id number] 04:18:00 Test Item Value Reference Range Comments SODIUM (BEAKER) (test 144 meq/L 136-145 eldo=110) POTASSIUM (BEAKER) (test 3.7 meq/L 3.5-5.1 Specimen slightly vcur=430) hemolyzed CHLORIDE (BEAKER) (test 111 meq/L 98-107 vqwj=818) CO2 (BEAKER) (test 28 meq/L 22-29 cwtr=598) BLOOD UREA NITROGEN 26 mg/dL 7-21 (BEAKER) (test yrlk=103) CREATININE (BEAKER) (test 0.73 mg/dL 0.57-1.25 Specimen slightly mbub=154) hemolyzed GLUCOSE RANDOM (BEAKER) 116 mg/dL 70-105 (test myoa=610) CALCIUM (BEAKER) (test 7.7 mg/dL 8.4-10.2 frhr=443) EGFR (BEAKER) (test 108 mL/min/1.73 sq m ESTIMATED GFR IS NOT qqxh=6425) ACCURATE CREATININE CLEARANCE IN PREDICTING GLOMERULAR FILTRATION RATE. ESTIMATED GFR IS NOT APPLICABLE FOR DIALYSIS PATIENTS. Collection Development Librarian ID - ELISSA [id number] 04:16:00 Test Item Value Reference Range Comments MAGNESIUM (BEAKER) (test 1.8 mg/dL 1.6-2.6 Specimen slightly hemolyzed qzhu=450) Collection Development Librarian ID - ELISSA [id number] 04:16:00 Test Item Value Reference Range Comments PHOSPHORUS (BEAKER) (test 1.9 mg/dL 2.3-4.7 Specimen slightly hemolyzed npnx=588) Collection Development Librarian ID - ELISSA MCBC W/PLT COUNT & AUTO [id number] 03:48:00 Test Item Value Reference Range Comments WHITE BLOOD CELL COUNT (BEAKER) (test qweo=611) 7.9 K/ L 3.5-10.5 RED BLOOD CELL COUNT (BEAKER) (test xvrr=613) 3.01 M/ L 4.63-6.08 HEMOGLOBIN (BEAKER) (test ceqr=646) 8.5 GM/DL 13.7-17.5 HEMATOCRIT (BEAKER) (test qxpg=920) 26.6 % 40.1-51.0 MEAN CORPUSCULAR VOLUME (BEAKER) (test ncco=022) 88.4 fL 79.0-92.2 MEAN CORPUSCULAR HEMOGLOBIN (BEAKER) (test 28.2 pg 25.7-32.2 nqng=199) MEAN CORPUSCULAR HEMOGLOBIN CONC (BEAKER) (test 32.0 GM/DL 32.3-36.5 vvmg=852) RED CELL DISTRIBUTION WIDTH (BEAKER) (test 18.3 % 11.6-14.4 nbbp=769) PLATELET COUNT (BEAKER) (test aiwo=969) 196 K/CU MM 150-450 MEAN PLATELET VOLUME (BEAKER) (test njll=200) 11.5 fL 9.4-12.4 NUCLEATED RED BLOOD CELLS (BEAKER) (test 0 /100 WBC 0-0 derb=165) NEUTROPHILS RELATIVE PERCENT (BEAKER) (test 67 % tkdg=134) LYMPHOCYTES RELATIVE PERCENT (BEAKER) (test 18 % vxdj=946) MONOCYTES RELATIVE PERCENT (BEAKER) (test 12 % agew=089) EOSINOPHILS RELATIVE PERCENT (BEAKER) (test 3 % hdsa=368) BASOPHILS RELATIVE PERCENT (BEAKER) (test 0 % wook=267) NEUTROPHILS ABSOLUTE COUNT (BEAKER) (test 5.32 K/ L 1.78-5.38 npxr=927) LYMPHOCYTES ABSOLUTE COUNT (BEAKER) (test 1.39 K/ L 1.32-3.57 mqub=840) MONOCYTES ABSOLUTE COUNT (BEAKER) (test 0.97 K/ L 0.30-0.82 pacd=473) EOSINOPHILS ABSOLUTE COUNT (BEAKER) (test 0.21 K/ L 0.04-0.54 ormb=900) BASOPHILS ABSOLUTE COUNT (BEAKER) (test 0.03 K/ L 0.01-0.08 asjm=493) IMMATURE GRANULOCYTES-RELATIVE PERCENT (BEAKER) 0 % 0-1 (test atlc=8556) POCT-GLUCOSE [id number] 00:35:00 Test Item Value Reference Range Comments POC-GLUCOSE METER (BEAKER) 104 mg/dL 70-110 : TESTED AT [facility] [address] [facility] (test hgmf=2840) [facility], [address]: Collection Development Librarian/Cloth Shrinker [id number] for NEEL HOWELL BASIC METABOLIC [id number] 19:39:00 Test Item Value Reference Range Comments SODIUM (BEAKER) (test 142 meq/L 136-145 wcxu=726) POTASSIUM (BEAKER) (test 3.6 meq/L 3.5-5.1 abnq=747) CHLORIDE (BEAKER) (test 111 meq/L 98-107 zftr=140) CO2 (BEAKER) (test 26 meq/L 22-29 rsew=362) BLOOD UREA NITROGEN 28 mg/dL 7-21 (BEAKER) (test vgfc=838) CREATININE (BEAKER) (test 0.74 mg/dL 0.57-1.25 qpnb=201) GLUCOSE RANDOM (BEAKER) 112 mg/dL 70-105 (test jbva=026) CALCIUM (BEAKER) (test 7.7 mg/dL 8.4-10.2 rnra=812) EGFR (BEAKER) (test 106 mL/min/1.73 sq m ESTIMATED GFR IS NOT mepc=1947) ACCURATE CREATININE CLEARANCE IN PREDICTING GLOMERULAR FILTRATION RATE. ESTIMATED GFR IS NOT APPLICABLE FOR DIALYSIS PATIENTS. Collection Development Librarian ID - [id number] 19:37:00 Test Item Value Reference Range Comments PHOSPHORUS (BEAKER) (test buiw=461) 1.8 mg/dL 2.3-4.7 Collection Development Librarian ID - [id number] 19:37:00 Test Item Value Reference Range Comments MAGNESIUM (BEAKER) (test gmwn=894) 1.8 mg/dL 1.6-2.6 Collection Development Librarian ID - DBPOCT-GLUCOSE [id number] 18:39:00 Test Item Value Reference Range Comments POC-GLUCOSE METER (BEAKER) 115 mg/dL 70-110 : Notified RN/MD: TESTED AT (test zehp=2201) [facility] [address] [facility], [address]: Collection Development Librarian/Cloth Shrinker [id number] for Renetta Bates CBC W/PLT COUNT & AUTO [id number] 18:15:00 Test Item Value Reference Range Comments WHITE BLOOD CELL COUNT (BEAKER) (test ulfl=192) 8.7 K/ L 3.5-10.5 RED BLOOD CELL COUNT (BEAKER) (test hevg=733) 3.07 M/ L 4.63-6.08 HEMOGLOBIN (BEAKER) (test suga=909) 8.6 GM/DL 13.7-17.5 HEMATOCRIT (BEAKER) (test zrgb=181) 27.2 % 40.1-51.0 MEAN CORPUSCULAR VOLUME (BEAKER) (test puhr=083) 88.6 fL 79.0-92.2 MEAN CORPUSCULAR HEMOGLOBIN (BEAKER) (test 28.0 pg 25.7-32.2 sugf=361) MEAN CORPUSCULAR HEMOGLOBIN CONC (BEAKER) (test 31.6 GM/DL 32.3-36.5 pjva=684) RED CELL DISTRIBUTION WIDTH (BEAKER) (test 18.0 % 11.6-14.4 evvk=079) PLATELET COUNT (BEAKER) (test emsp=551) 170 K/CU MM 150-450 MEAN PLATELET VOLUME (BEAKER) (test jdtp=061) 10.9 fL 9.4-12.4 NUCLEATED RED BLOOD CELLS (BEAKER) (test 0 /100 WBC 0-0 foct=204) NEUTROPHILS RELATIVE PERCENT (BEAKER) (test 70 % ibnf=907) LYMPHOCYTES RELATIVE PERCENT (BEAKER) (test 17 % zjsu=789) MONOCYTES RELATIVE PERCENT (BEAKER) (test 12 % ixxj=496) EOSINOPHILS RELATIVE PERCENT (BEAKER) (test 2 % dios=382) BASOPHILS RELATIVE PERCENT (BEAKER) (test 0 % lhha=061) NEUTROPHILS ABSOLUTE COUNT (BEAKER) (test 6.07 K/ L 1.78-5.38 hdtk=226) LYMPHOCYTES ABSOLUTE COUNT (BEAKER) (test 1.43 K/ L 1.32-3.57 ikzw=099) MONOCYTES ABSOLUTE COUNT (BEAKER) (test 1.00 K/ L 0.30-0.82 cvxz=546) EOSINOPHILS ABSOLUTE COUNT (BEAKER) (test 0.13 K/ L 0.04-0.54 tvva=487) BASOPHILS ABSOLUTE COUNT (BEAKER) (test 0.02 K/ L 0.01-0.08 gahr=678) IMMATURE GRANULOCYTES-RELATIVE PERCENT (BEAKER) 1 % 0-1 (test wmhz=1283) SURGICALLY OBTAINED CULTURE + GRAM [id number] 16:40:00 Test Item Value Reference Range Comments CULTURE (BEAKER) (test pfnv=9098) No growth GRAM STAIN RESULT (BEAKER) (test 1+ WBCs vpmh=4705) GRAM STAIN RESULT (BEAKER) (test No organisms seen xkck=10982) SURGICALLY OBTAINED CULTURE + GRAM [id number] 16:40:00 Test Item Value Reference Range Comments CULTURE (BEAKER) (test dxjk=0150) No growth GRAM STAIN RESULT (BEAKER) (test 1+ WBCs awel=7345) GRAM STAIN RESULT (BEAKER) (test No organisms seen sqay=74027) SURGICALLY OBTAINED CULTURE + GRAM [id number] 16:40:00 Test Item Value Reference Range Comments CULTURE (BEAKER) (test mspl=2602) No growth GRAM STAIN RESULT (BEAKER) (test 1+ WBCs andj=1920) GRAM STAIN RESULT (BEAKER) (test No organisms seen jchf=99330) SURGICALLY OBTAINED CULTURE + GRAM [id number] 16:40:00 Test Item Value Reference Range Comments CULTURE (BEAKER) (test tbut=8015) No growth GRAM STAIN RESULT (BEAKER) (test 1+ WBCs mpfr=1782) GRAM STAIN RESULT (BEAKER) (test No organisms seen oydq=45012) SURGICALLY OBTAINED CULTURE + GRAM [id number] 16:40:00 Test Item Value Reference Range Comments CULTURE (BEAKER) (test nlxz=0973) No growth GRAM STAIN RESULT (BEAKER) (test 1+ WBCs sfwp=8326) GRAM STAIN RESULT (BEAKER) (test No organisms seen asil=84033) POCT-GLUCOSE [id number] 11:57:00 Test Item Value Reference Range Comments POC-GLUCOSE METER (BEAKER) 126 mg/dL 70-110 : Notified RN/MD: TESTED AT (test idir=7617) [facility] [address] [facility], [id number]: Collection Development Librarian/Cloth Shrinker FX=[id number] for Renetta Bates RAD, CHEST, 1 VIEW, NON [id number] 10:13:00Reason for exam:->s/p R VATSShould this be performed at the bedside?->YesFINAL REPORT CLINICAL HISTORY: s/p R VATS TECHNIQUE: 1 view of the chest. COMPARISON : 04/17/2019 IMPRESSION: The ETT and three right-sided chest tubes appear unchanged position. There is no pneumothorax. Right hemithorax pleural- parenchymal opacity is unchanged. Left lung base opacity and a small left pleural effusion are also unchanged. The cardiomediastinal silhouette is magnified by technique with sternotomy wires. Signed: Jenny Rosado MDReport Verified Date/Time: 04/18/2019 10:13:43 Reading Location: [facility] Radiology Reading Room Electronically signed by: JENNY ROSADO M.D. on 10:13 AMPOCT-GLUCOSE [id number] 06:07:00 Test Item Value Reference Range Comments POC-GLUCOSE METER (BEAKER) 136 mg/dL 70-110 : TESTED AT [facility] [address] [facility] (test uksg=0998) [facility], [id number]: Collection Development Librarian/Cloth Shrinker [id number] for John Gifford BASIC METABOLIC [id number] 03:23:00 Test Item Value Reference Range Comments SODIUM (BEAKER) (test 140 meq/L 136-145 zbjj=810) POTASSIUM (BEAKER) (test 4.1 meq/L 3.5-5.1 ntle=822) CHLORIDE (BEAKER) (test 112 meq/L 98-107 sdhg=032) CO2 (BEAKER) (test 23 meq/L 22-29 glnm=123) BLOOD UREA NITROGEN 31 mg/dL 7-21 (BEAKER) (test mgcx=098) CREATININE (BEAKER) (test 0.92 mg/dL 0.57-1.25 mepi=743) GLUCOSE RANDOM (BEAKER) 136 mg/dL 70-105 (test rpyg=745) CALCIUM (BEAKER) (test 7.6 mg/dL 8.4-10.2 vpzi=473) EGFR (BEAKER) (test 83 mL/min/1.73 sq m ESTIMATED GFR IS NOT sobq=2090) ACCURATE CREATININE CLEARANCE IN PREDICTING GLOMERULAR FILTRATION RATE. ESTIMATED GFR IS NOT APPLICABLE FOR DIALYSIS PATIENTS. Collection Development Librarian ID - ELISSA [id number] 03:09:00 Test Item Value Reference Range Comments PHOSPHORUS (BEAKER) (test zfxd=076) 2.9 mg/dL 2.3-4.7 Collection Development Librarian ID - ELISSA [id number] 03:09:00 Test Item Value Reference Range Comments MAGNESIUM (BEAKER) (test uvns=394) 2.0 mg/dL 1.6-2.6 Collection Development Librarian ID - ELISSA MBLOOD GAS, [id number] 02:53:00 Test Item Value Reference Range Comments PH ARTERIAL (BEAKER) (test uhen=067) 7.43 7.35-7.45 PCO2 ARTERIAL (BEAKER) (test jjuq=223) 39 mmHg 35-45 PO2 ARTERIAL (BEAKER) (test avqw=525) 165 mmHg 80-90 O2 SATURATION ARTERIAL (BEAKER) (test qzma=888) 99.1 % 96.0-97.0 HCO3 ARTERIAL (BEAKER) (test fnvi=625) 25 mmol/L 21-29 BASE EXCESS ARTERIAL (BEAKER) (test ebym=857) 0.6 mmol/L -2.0-3.0 PATIENT TEMPERATURE (BEAKER) (test dtbl=3773) 37.2 C FIO2 (BEAKER) (test vtwk=1261) 40.0 % CBC W/PLT COUNT & AUTO [id number] 02:51:00 Test Item Value Reference Range Comments WHITE BLOOD CELL COUNT (BEAKER) (test bhvb=549) 7.5 K/ L 3.5-10.5 RED BLOOD CELL COUNT (BEAKER) (test awny=365) 2.78 M/ L 4.63-6.08 HEMOGLOBIN (BEAKER) (test ruhb=593) 8.0 GM/DL 13.7-17.5 HEMATOCRIT (BEAKER) (test vheh=316) 24.8 % 40.1-51.0 MEAN CORPUSCULAR VOLUME (BEAKER) (test skwe=893) 89.2 fL 79.0-92.2 MEAN CORPUSCULAR HEMOGLOBIN (BEAKER) (test 28.8 pg 25.7-32.2 zoud=029) MEAN CORPUSCULAR HEMOGLOBIN CONC (BEAKER) (test 32.3 GM/DL 32.3-36.5 hheb=811) RED CELL DISTRIBUTION WIDTH (BEAKER) (test 18.1 % 11.6-14.4 rnvh=097) PLATELET COUNT (BEAKER) (test sshi=467) 125 K/CU MM 150-450 MEAN PLATELET VOLUME (BEAKER) (test ekrx=983) 11.9 fL 9.4-12.4 NUCLEATED RED BLOOD CELLS (BEAKER) (test 0 /100 WBC 0-0 kwzh=473) NEUTROPHILS RELATIVE PERCENT (BEAKER) (test 64 % opkz=583) LYMPHOCYTES RELATIVE PERCENT (BEAKER) (test 21 % tumd=249) MONOCYTES RELATIVE PERCENT (BEAKER) (test 11 % kruk=868) EOSINOPHILS RELATIVE PERCENT (BEAKER) (test 4 % dbbc=040) BASOPHILS RELATIVE PERCENT (BEAKER) (test 0 % konc=011) NEUTROPHILS ABSOLUTE COUNT (BEAKER) (test 4.79 K/ L 1.78-5.38 uvat=347) LYMPHOCYTES ABSOLUTE COUNT (BEAKER) (test 1.53 K/ L 1.32-3.57 rkjz=407) MONOCYTES ABSOLUTE COUNT (BEAKER) (test 0.84 K/ L 0.30-0.82 qliz=738) EOSINOPHILS ABSOLUTE COUNT (BEAKER) (test 0.27 K/ L 0.04-0.54 qcpi=132) BASOPHILS ABSOLUTE COUNT (BEAKER) (test 0.02 K/ L 0.01-0.08 ibsi=418) IMMATURE GRANULOCYTES-RELATIVE PERCENT (BEAKER) 0 % 0-1 (test yfuj=6027) POCT-GLUCOSE [id number] 00:31:00 Test Item Value Reference Range Comments POC-GLUCOSE METER (BEAKER) 121 mg/dL 70-110 : TESTED AT [facility] [address] [facility] (test dvjm=6395) [facility], [id number]: Collection Development Librarian/Cloth Shrinker GI=[id number] for CINDAJOCELINECHRISTINA CLARKE POCT-GLUCOSE [id number] 18:46:00 Test Item Value Reference Range Comments POC-GLUCOSE METER (BEAKER) 114 mg/dL 70-110 : TESTED AT [facility] [address] [facility] (test earv=9621) [facility], [address]: Collection Development Librarian/Cloth Shrinker [id number] for DRU BONILLA METABOLIC [id number] 17:17:00 Test Item Value Reference Range Comments SODIUM (BEAKER) (test 138 meq/L 136-145 wwqi=797) POTASSIUM (BEAKER) (test 4.1 meq/L 3.5-5.1 kbtv=534) CHLORIDE (BEAKER) (test 111 meq/L 98-107 qnpl=425) CO2 (BEAKER) (test 24 meq/L 22-29 zctg=066) BLOOD UREA NITROGEN 33 mg/dL 7-21 (BEAKER) (test dlnt=371) CREATININE (BEAKER) (test 1.02 mg/dL 0.57-1.25 uybe=205) GLUCOSE RANDOM (BEAKER) 104 mg/dL 70-105 (test nlso=518) CALCIUM (BEAKER) (test 7.7 mg/dL 8.4-10.2 ynxi=225) EGFR (BEAKER) (test 74 mL/min/1.73 sq m ESTIMATED GFR IS NOT xktd=8416) ACCURATE CREATININE CLEARANCE IN PREDICTING GLOMERULAR FILTRATION RATE. ESTIMATED GFR IS NOT APPLICABLE FOR DIALYSIS PATIENTS. Collection Development Librarian ID - BSSpecimen slightly [id number] 17:14:00 Test Item Value Reference Range Comments PHOSPHORUS (BEAKER) (test jbmp=591) 4.2 mg/dL 2.3-4.7 Collection Development Librarian ID - [id number] 17:14:00 Test Item Value Reference Range Comments MAGNESIUM (BEAKER) (test hzmi=926) 2.1 mg/dL 1.6-2.6 Collection Development Librarian ID - BSCBC W/PLT COUNT & AUTO [id number] 16:29:00 Test Item Value Reference Range Comments WHITE BLOOD CELL COUNT (BEAKER) (test zvla=812) 7.9 K/ L 3.5-10.5 RED BLOOD CELL COUNT (BEAKER) (test aimb=680) 2.96 M/ L 4.63-6.08 HEMOGLOBIN (BEAKER) (test kkew=443) 8.4 GM/DL 13.7-17.5 HEMATOCRIT (BEAKER) (test cpwt=768) 26.2 % 40.1-51.0 MEAN CORPUSCULAR VOLUME (BEAKER) (test tlje=829) 88.5 fL 79.0-92.2 MEAN CORPUSCULAR HEMOGLOBIN (BEAKER) (test 28.4 pg 25.7-32.2 gaeq=242) MEAN CORPUSCULAR HEMOGLOBIN CONC (BEAKER) (test 32.1 GM/DL 32.3-36.5 raxh=172) RED CELL DISTRIBUTION WIDTH (BEAKER) (test 17.8 % 11.6-14.4 iuqq=123) PLATELET COUNT (BEAKER) (test ktwa=472) 121 K/CU MM 150-450 MEAN PLATELET VOLUME (BEAKER) (test xoji=382) 11.0 fL 9.4-12.4 NUCLEATED RED BLOOD CELLS (BEAKER) (test 0 /100 WBC 0-0 eegp=773) NEUTROPHILS RELATIVE PERCENT (BEAKER) (test 68 % tttr=910) LYMPHOCYTES RELATIVE PERCENT (BEAKER) (test 18 % csxd=670) MONOCYTES RELATIVE PERCENT (BEAKER) (test 10 % putz=217) EOSINOPHILS RELATIVE PERCENT (BEAKER) (test 4 % cgde=077) BASOPHILS RELATIVE PERCENT (BEAKER) (test 0 % lrwb=633) NEUTROPHILS ABSOLUTE COUNT (BEAKER) (test 5.37 K/ L 1.78-5.38 snsb=614) LYMPHOCYTES ABSOLUTE COUNT (BEAKER) (test 1.39 K/ L 1.32-3.57 vinv=156) MONOCYTES ABSOLUTE COUNT (BEAKER) (test 0.81 K/ L 0.30-0.82 pcpe=602) EOSINOPHILS ABSOLUTE COUNT (BEAKER) (test 0.29 K/ L 0.04-0.54 myno=678) BASOPHILS ABSOLUTE COUNT (BEAKER) (test 0.01 K/ L 0.01-0.08 ytya=397) IMMATURE GRANULOCYTES-RELATIVE PERCENT (BEAKER) 0 % 0-1 (test pvbw=0137) BLOOD GAS, [id number] 16:23:00 Test Item Value Reference Range Comments PH ARTERIAL (BEAKER) (test eiuj=543) 7.41 7.35-7.45 PCO2 ARTERIAL (BEAKER) (test brig=176) 41 mmHg 35-45 PO2 ARTERIAL (BEAKER) (test laol=211) 174 mmHg 80-90 O2 SATURATION ARTERIAL (BEAKER) (test lirz=890) 99.2 % 96.0-97.0 HCO3 ARTERIAL (BEAKER) (test bdyb=006) 25 mmol/L 21-29 BASE EXCESS ARTERIAL (BEAKER) (test jjrb=126) 0.4 mmol/L -2.0-3.0 PATIENT TEMPERATURE (BEAKER) (test hrbi=3059) 37.0 C FIO2 (BEAKER) (test nqhv=9438) 40.0 % POCT-GLUCOSE [id number] 13:26:00 Test Item Value Reference Range Comments POC-GLUCOSE METER (BEAKER) 94 mg/dL 70-110 : TESTED AT [facility] [address] [facility] (test hqob=3666) [facility], [address]: Collection Development Librarian/Cloth Shrinker AO=[id number] for NATO RODRIGUEZ BRONCHIAL CULTURE + GRAM [id number] 11:54:00 Test Item Value Reference Range Comments CULTURE (BEAKER) (test jbzc=9870) No growth GRAM STAIN RESULT (BEAKER) (test 1+ WBCs mttn=3112) GRAM STAIN RESULT (BEAKER) (test No organisms seen avvy=69843) TISSUE [id number] 11:43:00Surgical Pathology Report Case: [id number] Authorizing Provider: Fernando Andrews MD Collected: 04/14/2019 1654 Ordering Location: [facility] Received: 04/15/2019 0933 PERIOPERATIVE SERVICES Pathologist: Gay Puentes MD Specimens: A) - Pleura, PARIETAL PLEURA B) -Lung, Right Lower Lobe, Right lower lobe C) - Lung, Right Middle Lobe, Right middle lobe D) - Lung,Right Upper Lobe, Right upper lobe A. PLEURA, RIGHT, PARIETALPLEURA, DECORTICATION: - CHRONIC FIBROSING PLEURITIS. - NEGATIVE FOR MALIGNANCYB. LUNG, RIGHT LOWER LOBE, DECORTICATION: - CHRONIC FIBROSING PLEURITIS WITH FOCAL ACUTE INFLAMMATION. - LUNG PARENCHYMA WITH FEATURES OF ORGANIZING PNEUMONIA. - NEGATIVE FOR MALIGNANCYC. LUNG, RIGHT MIDDLE LOBE, DECORTICATION: - CHRONIC FIBROSING PLEURITIS. - NEGATIVE FOR MALIGNANCY.D. LUNG, RIGHT UPPER LOBE, DECORTICATION: - CHRONIC FIBROSING PLEURITIS. - NEGATIVE FOR MALIGNANCY. - LUNG PARENCHYMA WITH NO SIGNIFICANT DIAGNOSTIC ALTERATION. Signing Pathologist Direct Phone Line: [phone] signed by Gay Puentes MD on 04/17/2019 at 11:43 [id number] X 4Empyema, right.A. Pleura. B. Lung, right lower lobe. C. Lung, right middle lobe. D. Lung, right upper lobe A. Received in formalin labeled with the patient's name, accession number and "parietal pleura" is a 1.5 x 0.8 x 0.1 cm portion of devlin-pink fibromembranous tissue, which is entirely submitted in A1.B. Received in formalin labeled with the patient's name, accession number and "right lower lobe" is a 4.0 x 3.0 x 0.3 cm portion of devlin-pink, focally hemorrhagic, fibromembranous tissue, which is entirely submitted in B1-B3. C. Received in formalin labeled with the patient's name, accession number and "lung, right middle lobe" is a 3.5 x 0.5 x 0.3 cm portion of devlin-pink fibromembranous tissue, which is entirely submittedin C1. D. Received in formalin labeled with the patient's name, accession number and "right upper lobe" is a 2.3 x 0.7 x 0.2 cm devlin-pink fibromembranous tissue, which is entirely submitted in D1. PA/ewPerformed.[facility], Department of Pathology, [address] [place] [address], [facility], [facility], [address] [place] [address], [facility], [facility] of Path[facility], [address] [place] [address], Tel RAD, CHEST, 1 VIEW, NON [id number] 10:13:00Reason for exam:->s/ p R VATSShould this be performed at the bedside?->YesFINAL REPORT History: Status post VATS Comparison: 04/16/2019 Findings: Right- sided chest tube remain in place, without evidence of a pneumothorax. Small right pleural effusion versus mild pleural reaction. There is persistent atelectasis in the lower right lung. There is mild interstitial pulmonary edema bilaterally. Minimal left pleural effusion. The cardiac shadow is partially obscured. Endotracheal tube tip is 5 cm proximal to the shruthi. Signed: Fredi Lucas MDReport Verified Date/Time: 04/17/2019 10:13:50 Reading Location: [facility] Radiology Reading Room Electronically signed by: FREDI LUCAS MD on 10:13 AMPOCT-GLUCOSE [id number] 05:44:00 Test Item Value Reference Range Comments POC-GLUCOSE METER (BEAKER) 99 mg/dL 70-110 : TESTED AT [facility] [address] [facility] (test uswq=0920) [facility], [address]: Collection Development Librarian/Cloth Shrinker [id number] for CLARKE FRAIRE BASIC METABOLIC [id number] 04:57:00 Test Item Value Reference Range Comments SODIUM (BEAKER) (test 138 meq/L 136-145 zxna=700) POTASSIUM (BEAKER) (test 4.4 meq/L 3.5-5.1 lymo=094) CHLORIDE (BEAKER) (test 112 meq/L 98-107 ylvb=276) CO2 (BEAKER) (test 21 meq/L 22-29 osto=243) BLOOD UREA NITROGEN 33 mg/dL 7-21 (BEAKER) (test ysnm=230) CREATININE (BEAKER) (test 1.12 mg/dL 0.57-1.25 reby=928) GLUCOSE RANDOM (BEAKER) 98 mg/dL 70-105 (test qygx=549) CALCIUM (BEAKER) (test 7.4 mg/dL 8.4-10.2 grgl=907) EGFR (BEAKER) (test 66 mL/min/1.73 sq m ESTIMATED GFR IS NOT nlrd=5123) ACCURATE CREATININE CLEARANCE IN PREDICTING GLOMERULAR FILTRATION RATE. ESTIMATED GFR IS NOT APPLICABLE FOR DIALYSIS PATIENTS. Collection Development Librarian ID - [id number] 04:36:00 Test Item Value Reference Range Comments PHOSPHORUS (BEAKER) (test kqos=331) 3.8 mg/dL 2.3-4.7 Collection Development Librarian ID - [id number] 04:36:00 Test Item Value Reference Range Comments MAGNESIUM (BEAKER) (test lyoc=231) 2.3 mg/dL 1.6-2.6 Collection Development Librarian ID - [id number] 04:08:00 Test Item Value Reference Range Comments PARTIAL THROMBOPLASTIN TIME (BEAKER) (test 41.6 seconds 22.5-36.0 vjcm=971) PROTHROMBIN [id number] 04:07:00 Test Item Value Reference Range Comments PROTIME (BEAKER) (test jola=779) 18.0 seconds 11.9-14.2 INR (BEAKER) (test yksp=465) 1.5 <=5.9 Effective 07/24/2018: PT Reference Range ChangeNew: 11.9-14.2 Previous: 11.7- 14.7RECOMMENDED COUMADIN/WARFARIN INR THERAPY RANGESSTANDARD DOSE: 2.0-3.0 Includes: PROPHYLAXIS for venous thrombosis, systemic embolization; TREATMENT for venous thrombosis and/or pulmonary embolus.HIGH RISK: Target INR is2.5-3.5 for patients wiht mechanical heart valves.BLOOD GAS, [id number] 04:02:00 Test Item Value Reference Range Comments PH ARTERIAL (BEAKER) (test ijrs=926) 7.53 7.35-7.45 PCO2 ARTERIAL (BEAKER) (test ciol=805) 30 mmHg 35-45 PO2 ARTERIAL (BEAKER) (test kxti=624) 183 mmHg 80-90 O2 SATURATION ARTERIAL (BEAKER) (test lzcy=794) 99.4 % 96.0-97.0 HCO3 ARTERIAL (BEAKER) (test jteq=382) 24 mmol/L 21-29 BASE EXCESS ARTERIAL (BEAKER) (test fjrh=119) 1.5 mmol/L -2.0-3.0 PATIENT TEMPERATURE (BEAKER) (test mncq=4248) 37.0 C FIO2 (BEAKER) (test mexj=7022) 40.0 % CBC W/PLT COUNT & AUTO [id number] 03:56:00 Test Item Value Reference Range Comments WHITE BLOOD CELL COUNT (BEAKER) (test nfqb=345) 8.0 K/ L 3.5-10.5 RED BLOOD CELL COUNT (BEAKER) (test ouiv=852) 2.56 M/ L 4.63-6.08 HEMOGLOBIN (BEAKER) (test bnhx=373) 7.2 GM/DL 13.7-17.5 HEMATOCRIT (BEAKER) (test jdft=286) 22.4 % 40.1-51.0 MEAN CORPUSCULAR VOLUME (BEAKER) (test wihb=273) 87.5 fL 79.0-92.2 MEAN CORPUSCULAR HEMOGLOBIN (BEAKER) (test 28.1 pg 25.7-32.2 klit=350) MEAN CORPUSCULAR HEMOGLOBIN CONC (BEAKER) (test 32.1 GM/DL 32.3-36.5 syon=000) RED CELL DISTRIBUTION WIDTH (BEAKER) (test 18.2 % 11.6-14.4 sqek=988) PLATELET COUNT (BEAKER) (test rfyb=997) 113 K/CU MM 150-450 MEAN PLATELET VOLUME (BEAKER) (test tmjm=452) 11.4 fL 9.4-12.4 NUCLEATED RED BLOOD CELLS (BEAKER) (test 0 /100 WBC 0-0 kkwg=371) NEUTROPHILS RELATIVE PERCENT (BEAKER) (test 65 % hupp=629) LYMPHOCYTES RELATIVE PERCENT (BEAKER) (test 20 % bfza=216) MONOCYTES RELATIVE PERCENT (BEAKER) (test 11 % qiqj=446) EOSINOPHILS RELATIVE PERCENT (BEAKER) (test 4 % fsxk=062) BASOPHILS RELATIVE PERCENT (BEAKER) (test 0 % yemh=823) NEUTROPHILS ABSOLUTE COUNT (BEAKER) (test 5.21 K/ L 1.78-5.38 wnml=817) LYMPHOCYTES ABSOLUTE COUNT (BEAKER) (test 1.59 K/ L 1.32-3.57 zrfq=293) MONOCYTES ABSOLUTE COUNT (BEAKER) (test 0.91 K/ L 0.30-0.82 kqzd=321) EOSINOPHILS ABSOLUTE COUNT (BEAKER) (test 0.28 K/ L 0.04-0.54 zfvt=740) BASOPHILS ABSOLUTE COUNT (BEAKER) (test 0.02 K/ L 0.01-0.08 edmy=318) IMMATURE GRANULOCYTES-RELATIVE PERCENT (BEAKER) 0 % 0-1 (test rkgn=1706) HEMOGLOBIN AND [id number] 00:46:00 Test Item Value Reference Range Comments HEMOGLOBIN (BEAKER) (test tuha=734) 7.7 GM/DL 13.7-17.5 HEMATOCRIT (BEAKER) (test toag=879) 23.6 % 40.1-51.0 Collection Development Librarian ID - [id number]-GLUCOSE [id number] 00:22:00 Test Item Value Reference Range Comments POC-GLUCOSE METER (BEAKER) 98 mg/dL 70-110 : TESTED AT [address] (test gzzk=6316) [facility], [address]: Collection Development Librarian/Cloth Shrinker PP=[id number] for SANDRA WILSON POCT-GLUCOSE [id number] 19:03:00 Test Item Value Reference Range Comments POC-GLUCOSE METER (BEAKER) 93 mg/dL 70-110 : TESTED AT [facility] [address] [facility] (test pcuw=7919) [facility], [address]: Collection Development Librarian/Cloth Shrinker JK=[id number] for DRU BONILLA BASIC METABOLIC [id number] 17:08:00 Test Item Value Reference Range Comments SODIUM (BEAKER) (test 139 meq/L 136-145 snnm=024) POTASSIUM (BEAKER) (test 4.9 meq/L 3.5-5.1 Specimen slightly gyqn=417) hemolyzed CHLORIDE (BEAKER) (test 113 meq/L 98-107 qduy=335) CO2 (BEAKER) (test 23 meq/L 22-29 pzsd=427) BLOOD UREA NITROGEN 31 mg/dL 7-21 (BEAKER) (test bhbf=377) CREATININE (BEAKER) (test 1.21 mg/dL 0.57-1.25 Specimen slightly yyml=939) hemolyzed GLUCOSE RANDOM (BEAKER) 96 mg/dL 70-105 (test erfk=624) CALCIUM (BEAKER) (test 7.7 mg/dL 8.4-10.2 xyup=364) EGFR (BEAKER) (test 60 mL/min/1.73 sq m ESTIMATED GFR IS NOT foya=0057) ACCURATE CREATININE CLEARANCE IN PREDICTING GLOMERULAR FILTRATION RATE. ESTIMATED GFR IS NOT APPLICABLE FOR DIALYSIS PATIENTS. Collection Development Librarian ID - [id number] 17:06:00 Test Item Value Reference Range Comments PHOSPHORUS (BEAKER) (test 4.5 mg/dL 2.3-4.7 Specimen slightly hemolyzed jasj=345) Collection Development Librarian ID - BSCBC W/PLT COUNT & AUTO [id number] 16:39:00 Test Item Value Reference Range Comments WHITE BLOOD CELL COUNT (BEAKER) (test xmbb=243) 9.5 K/ L 3.5-10.5 RED BLOOD CELL COUNT (BEAKER) (test eicu=261) 2.78 M/ L 4.63-6.08 HEMOGLOBIN (BEAKER) (test lmpu=051) 7.9 GM/DL 13.7-17.5 HEMATOCRIT (BEAKER) (test bvbo=010) 23.8 % 40.1-51.0 MEAN CORPUSCULAR VOLUME (BEAKER) (test nifi=150) 85.6 fL 79.0-92.2 MEAN CORPUSCULAR HEMOGLOBIN (BEAKER) (test 28.4 pg 25.7-32.2 ecgd=643) MEAN CORPUSCULAR HEMOGLOBIN CONC (BEAKER) (test 33.2 GM/DL 32.3-36.5 pobq=907) RED CELL DISTRIBUTION WIDTH (BEAKER) (test 17.8 % 11.6-14.4 vsot=433) PLATELET COUNT (BEAKER) (test awdf=227) 133 K/CU MM 150-450 MEAN PLATELET VOLUME (BEAKER) (test fwmn=676) 11.9 fL 9.4-12.4 NUCLEATED RED BLOOD CELLS (BEAKER) (test 0 /100 WBC 0-0 jock=158) NEUTROPHILS RELATIVE PERCENT (BEAKER) (test 66 % fmic=157) LYMPHOCYTES RELATIVE PERCENT (BEAKER) (test 18 % dvdi=405) MONOCYTES RELATIVE PERCENT (BEAKER) (test 13 % zrwp=040) EOSINOPHILS RELATIVE PERCENT (BEAKER) (test 3 % lfrp=681) BASOPHILS RELATIVE PERCENT (BEAKER) (test 0 % aowl=084) NEUTROPHILS ABSOLUTE COUNT (BEAKER) (test 6.31 K/ L 1.78-5.38 uste=723) LYMPHOCYTES ABSOLUTE COUNT (BEAKER) (test 1.66 K/ L 1.32-3.57 jrkk=467) MONOCYTES ABSOLUTE COUNT (BEAKER) (test 1.20 K/ L 0.30-0.82 unmy=740) EOSINOPHILS ABSOLUTE COUNT (BEAKER) (test 0.26 K/ L 0.04-0.54 ywiy=886) BASOPHILS ABSOLUTE COUNT (BEAKER) (test 0.03 K/ L 0.01-0.08 ipbz=690) IMMATURE GRANULOCYTES-RELATIVE PERCENT (BEAKER) 1 % 0-1 (test ptaw=9153) BLOOD GAS, [id number] 16:16:00 Test Item Value Reference Range Comments PH ARTERIAL (BEAKER) (test ppvn=570) 7.44 7.35-7.45 PCO2 ARTERIAL (BEAKER) (test trev=033) 35 mmHg 35-45 PO2 ARTERIAL (BEAKER) (test ckhu=650) 182 mmHg 80-90 O2 SATURATION ARTERIAL (BEAKER) (test tdiw=545) 99.3 % 96.0-97.0 HCO3 ARTERIAL (BEAKER) (test kfhu=890) 24 mmol/L 21-29 BASE EXCESS ARTERIAL (BEAKER) (test jrrr=422) -0.3 mmol/L -2.0-3.0 PATIENT TEMPERATURE (BEAKER) (test ttoa=5686) 37.0 C FIO2 (BEAKER) (test tmlk=4731) 40.0 % POCT-GLUCOSE [id number] 13:36:00 Test Item Value Reference Range Comments POC-GLUCOSE METER (BEAKER) 93 mg/dL 70-110 : TESTED AT [facility] [address] [facility] (test woor=6045) [facility], [address]: Collection Development Librarian/Cloth Shrinker DB=[id number] for MYLES BRITT HEMOGLOBIN AND [id number] 09:42:00 Test Item Value Reference Range Comments HEMOGLOBIN (BEAKER) (test tzuv=052) 8.0 GM/DL 13.7-17.5 HEMATOCRIT (BEAKER) (test zite=174) 24.1 % 40.1-51.0 Collection Development Librarian ID - [id number], CHEST, 1 VIEW, NON [id number] 06:37:00Reason for exam :->s/p R VATSShould this be performed at the bedside?->YesFINAL REPORT CLINICAL INDICATION: Postop Comparison: 04/15/2019 1353 hours The cardiomediastinal contours are stable. Central pulmonary vascular prominence and right greater thanleft parenchymal and pleural opacities are unchanged. There is no pneumothorax. Support lines are stable. Signed: Reji Tyler MDReport Verified Date/Time: 04/16/2019 06:37:16 BASIC METABOLIC [id number] 04:45:00 Test Item Value Reference Range Comments SODIUM (BEAKER) (test 139 meq/L 136-145 wzkv=193) POTASSIUM (BEAKER) (test 5.0 meq/L 3.5-5.1 zrvq=322) CHLORIDE (BEAKER) (test 112 meq/L 98-107 onuh=551) CO2 (BEAKER) (test 21 meq/L 22-29 ckzb=637) BLOOD UREA NITROGEN 25 mg/dL 7-21 (BEAKER) (test hhxr=264) CREATININE (BEAKER) (test 1.19 mg/dL 0.57-1.25 vdiz=528) GLUCOSE RANDOM (BEAKER) 119 mg/dL 70-105 (test ycim=347) CALCIUM (BEAKER) (test 7.5 mg/dL 8.4-10.2 vcfr=638) EGFR (BEAKER) (test 62 mL/min/1.73 sq m ESTIMATED GFR IS NOT mrwz=1082) ACCURATE CREATININE CLEARANCE IN PREDICTING GLOMERULAR FILTRATION RATE. ESTIMATED GFR IS NOT APPLICABLE FOR DIALYSIS PATIENTS. Collection Development Librarian ID - DBSpecimen slightly [id number] 04:26:00 Test Item Value Reference Range Comments PHOSPHORUS (BEAKER) (test ckzd=826) 5.1 mg/dL 2.3-4.7 Collection Development Librarian ID - [id number] 04:26:00 Test Item Value Reference Range Comments MAGNESIUM (BEAKER) (test qvpw=585) 2.2 mg/dL 1.6-2.6 Collection Development Librarian ID - [id number] 04:09:00 Test Item Value Reference Range Comments PARTIAL THROMBOPLASTIN TIME (BEAKER) (test 35.4 seconds 22.5-36.0 sxgd=440) PROTHROMBIN [id number] 04:08:00 Test Item Value Reference Range Comments PROTIME (BEAKER) (test mpsz=516) 17.5 seconds 11.9-14.2 INR (BEAKER) (test drdb=956) 1.5 <=5.9 Effective 07/24/2018: PT Reference Range ChangeNew: 11.9-14.2 Previous: 11.7- 14.7RECOMMENDED COUMADIN/WARFARIN INR THERAPY RANGESSTANDARD DOSE: 2.0-3.0 Includes: PROPHYLAXIS for venous thrombosis, systemic embolization; TREATMENT for venous thrombosis and/or pulmonary embolus.HIGH RISK: Target INR is2.5-3.5 for patients wiht mechanical heart valves.CBC W/PLT COUNT & AUTO [id number] 03:57:00 Test Item Value Reference Range Comments WHITE BLOOD CELL COUNT (BEAKER) (test lqbk=645) 9.4 K/ L 3.5-10.5 RED BLOOD CELL COUNT (BEAKER) (test asmt=624) 2.94 M/ L 4.63-6.08 HEMOGLOBIN (BEAKER) (test uvcj=956) 8.2 GM/DL 13.7-17.5 HEMATOCRIT (BEAKER) (test rffa=953) 24.9 % 40.1-51.0 MEAN CORPUSCULAR VOLUME (BEAKER) (test btkk=381) 84.7 fL 79.0-92.2 MEAN CORPUSCULAR HEMOGLOBIN (BEAKER) (test 27.9 pg 25.7-32.2 fasu=981) MEAN CORPUSCULAR HEMOGLOBIN CONC (BEAKER) (test 32.9 GM/DL 32.3-36.5 xucx=815) RED CELL DISTRIBUTION WIDTH (BEAKER) (test 17.6 % 11.6-14.4 btic=686) PLATELET COUNT (BEAKER) (test hcyl=318) 125 K/CU MM 150-450 MEAN PLATELET VOLUME (BEAKER) (test uefv=244) 11.6 fL 9.4-12.4 NUCLEATED RED BLOOD CELLS (BEAKER) (test 0 /100 WBC 0-0 mixg=288) NEUTROPHILS RELATIVE PERCENT (BEAKER) (test 63 % prwt=525) LYMPHOCYTES RELATIVE PERCENT (BEAKER) (test 20 % bzec=823) MONOCYTES RELATIVE PERCENT (BEAKER) (test 15 % wjtl=533) EOSINOPHILS RELATIVE PERCENT (BEAKER) (test 2 % hlow=589) BASOPHILS RELATIVE PERCENT (BEAKER) (test 0 % pnos=666) NEUTROPHILS ABSOLUTE COUNT (BEAKER) (test 5.94 K/ L 1.78-5.38 djmb=963) LYMPHOCYTES ABSOLUTE COUNT (BEAKER) (test 1.83 K/ L 1.32-3.57 zcoo=107) MONOCYTES ABSOLUTE COUNT (BEAKER) (test 1.38 K/ L 0.30-0.82 hupv=750) EOSINOPHILS ABSOLUTE COUNT (BEAKER) (test 0.17 K/ L 0.04-0.54 luwq=996) BASOPHILS ABSOLUTE COUNT (BEAKER) (test 0.03 K/ L 0.01-0.08 ucsg=980) IMMATURE GRANULOCYTES-RELATIVE PERCENT (BEAKER) 1 % 0-1 (test smkf=6658) CALCIUM, [id number] 03:44:00 Test Item Value Reference Range Comments CALCIUM IONIZED (BEAKER) (test retg=832) 1.09 mmol/L 1.12-1.27 PH, BLOOD (BEAKER) (test xlcf=3245) 7.44 BLOOD GAS, [id number] 03:44:00 Test Item Value Reference Range Comments PH ARTERIAL (BEAKER) (test gyva=696) 7.44 7.35-7.45 PCO2 ARTERIAL (BEAKER) (test acps=680) 35 mmHg 35-45 PO2 ARTERIAL (BEAKER) (test zntn=380) 159 mmHg 80-90 O2 SATURATION ARTERIAL (BEAKER) (test kuxf=383) 99.1 % 96.0-97.0 HCO3 ARTERIAL (BEAKER) (test mheu=989) 23 mmol/L 21-29 BASE EXCESS ARTERIAL (BEAKER) (test bykj=454) -1.1 mmol/L -2.0-3.0 PATIENT TEMPERATURE (BEAKER) (test dpqf=8531) 37.0 C FIO2 (BEAKER) (test mmxu=5154) 40.0 % POCT-GLUCOSE [id number] 23:26:00 Test Item Value Reference Range Comments POC-GLUCOSE METER (BEAKER) 117 mg/dL 70-110 : TESTED AT [facility] [address] [place] [address] (test yunh=3431) [facility], [id number]: Collection Development Librarian/Cloth Shrinker IH=[id number] for NEEL HOWELL CBC W/PLT COUNT & AUTO [id number] 23:13:00 Test Item Value Reference Range Comments WHITE BLOOD CELL COUNT (BEAKER) (test qocu=481) 8.6 K/ L 3.5-10.5 RED BLOOD CELL COUNT (BEAKER) (test wuwx=726) 2.40 M/ L 4.63-6.08 HEMOGLOBIN (BEAKER) (test wtqu=907) 6.7 GM/DL 13.7-17.5 HEMATOCRIT (BEAKER) (test szct=705) 20.6 % 40.1-51.0 MEAN CORPUSCULAR VOLUME (BEAKER) (test wmip=740) 85.8 fL 79.0-92.2 MEAN CORPUSCULAR HEMOGLOBIN (BEAKER) (test 27.9 pg 25.7-32.2 bfbe=962) MEAN CORPUSCULAR HEMOGLOBIN CONC (BEAKER) (test 32.5 GM/DL 32.3-36.5 gnkt=602) RED CELL DISTRIBUTION WIDTH (BEAKER) (test 18.2 % 11.6-14.4 azny=939) PLATELET COUNT (BEAKER) (test kymr=951) 128 K/CU MM 150-450 MEAN PLATELET VOLUME (BEAKER) (test mbfa=134) 12.0 fL 9.4-12.4 NUCLEATED RED BLOOD CELLS (BEAKER) (test 0 /100 WBC 0-0 syxu=415) NEUTROPHILS RELATIVE PERCENT (BEAKER) (test 65 % zxrq=117) LYMPHOCYTES RELATIVE PERCENT (BEAKER) (test 19 % qppv=786) MONOCYTES RELATIVE PERCENT (BEAKER) (test 14 % fcip=966) EOSINOPHILS RELATIVE PERCENT (BEAKER) (test 2 % uzzd=206) BASOPHILS RELATIVE PERCENT (BEAKER) (test 0 % fkqa=157) NEUTROPHILS ABSOLUTE COUNT (BEAKER) (test 5.56 K/ L 1.78-5.38 wlmw=128) LYMPHOCYTES ABSOLUTE COUNT (BEAKER) (test 1.66 K/ L 1.32-3.57 bwvi=094) MONOCYTES ABSOLUTE COUNT (BEAKER) (test 1.19 K/ L 0.30-0.82 rvhr=321) EOSINOPHILS ABSOLUTE COUNT (BEAKER) (test 0.15 K/ L 0.04-0.54 hngz=878) BASOPHILS ABSOLUTE COUNT (BEAKER) (test 0.03 K/ L 0.01-0.08 pdbh=121) IMMATURE GRANULOCYTES-RELATIVE PERCENT (BEAKER) 1 % 0-1 (test cnoh=7814) BASIC METABOLIC [id number] 16:33:00 Test Item Value Reference Range Comments SODIUM (BEAKER) (test 139 meq/L 136-145 vpqg=950) POTASSIUM (BEAKER) (test 4.6 meq/L 3.5-5.1 ifum=568) CHLORIDE (BEAKER) (test 112 meq/L 98-107 sqgt=965) CO2 (BEAKER) (test 21 meq/L 22-29 bqrs=669) BLOOD UREA NITROGEN 22 mg/dL 7-21 (BEAKER) (test qddx=453) CREATININE (BEAKER) (test 1.12 mg/dL 0.57-1.25 ktvh=493) GLUCOSE RANDOM (BEAKER) 133 mg/dL 70-105 (test gxzh=059) CALCIUM (BEAKER) (test 7.6 mg/dL 8.4-10.2 jvte=099) EGFR (BEAKER) (test 66 mL/min/1.73 sq m ESTIMATED GFR IS NOT mdql=0023) ACCURATE CREATININE CLEARANCE IN PREDICTING GLOMERULAR FILTRATION RATE. ESTIMATED GFR IS NOT APPLICABLE FOR DIALYSIS PATIENTS. Collection Development Librarian ID - JOSE [id number] 16:29:00 Test Item Value Reference Range Comments PHOSPHORUS (BEAKER) (test aazg=357) 5.0 mg/dL 2.3-4.7 Collection Development Librarian ID - JOSE EBLOOD GAS, [id number] 16:18:00 Test Item Value Reference Range Comments PH ARTERIAL (BEAKER) (test jtae=631) 7.38 7.35-7.45 PCO2 ARTERIAL (BEAKER) (test aqgf=050) 38 mmHg 35-45 PO2 ARTERIAL (BEAKER) (test gwho=564) 192 mmHg 80-90 O2 SATURATION ARTERIAL (BEAKER) (test jkbe=534) 99.3 % 96.0-97.0 HCO3 ARTERIAL (BEAKER) (test goct=446) 22 mmol/L 21-29 BASE EXCESS ARTERIAL (BEAKER) (test qudb=081) -2.9 mmol/L -2.0-3.0 PATIENT TEMPERATURE (BEAKER) (test qwnd=9030) 37.0 C FIO2 (BEAKER) (test ihlg=5032) 45.0 % CBC W/PLT COUNT & AUTO [id number] 16:17:00 Test Item Value Reference Range Comments WHITE BLOOD CELL COUNT (BEAKER) (test jgmk=578) 7.6 K/ L 3.5-10.5 RED BLOOD CELL COUNT (BEAKER) (test xhfa=602) 2.39 M/ L 4.63-6.08 HEMOGLOBIN (BEAKER) (test mjmt=068) 6.7 GM/DL 13.7-17.5 HEMATOCRIT (BEAKER) (test nzsh=467) 20.1 % 40.1-51.0 MEAN CORPUSCULAR VOLUME (BEAKER) (test avtm=673) 84.1 fL 79.0-92.2 MEAN CORPUSCULAR HEMOGLOBIN (BEAKER) (test 28.0 pg 25.7-32.2 phwp=223) MEAN CORPUSCULAR HEMOGLOBIN CONC (BEAKER) (test 33.3 GM/DL 32.3-36.5 kjor=269) RED CELL DISTRIBUTION WIDTH (BEAKER) (test 18.4 % 11.6-14.4 odei=220) PLATELET COUNT (BEAKER) (test xpfg=751) 121 K/CU MM 150-450 MEAN PLATELET VOLUME (BEAKER) (test dhii=198) 11.9 fL 9.4-12.4 NUCLEATED RED BLOOD CELLS (BEAKER) (test 0 /100 WBC 0-0 jilg=251) NEUTROPHILS RELATIVE PERCENT (BEAKER) (test 67 % bzeg=837) LYMPHOCYTES RELATIVE PERCENT (BEAKER) (test 18 % lusx=690) MONOCYTES RELATIVE PERCENT (BEAKER) (test 13 % xibs=158) EOSINOPHILS RELATIVE PERCENT (BEAKER) (test 1 % xzpk=395) BASOPHILS RELATIVE PERCENT (BEAKER) (test 1 % euch=237) NEUTROPHILS ABSOLUTE COUNT (BEAKER) (test 5.07 K/ L 1.78-5.38 ustz=947) LYMPHOCYTES ABSOLUTE COUNT (BEAKER) (test 1.36 K/ L 1.32-3.57 simo=016) MONOCYTES ABSOLUTE COUNT (BEAKER) (test 0.97 K/ L 0.30-0.82 ezap=066) EOSINOPHILS ABSOLUTE COUNT (BEAKER) (test 0.08 K/ L 0.04-0.54 jpsh=123) BASOPHILS ABSOLUTE COUNT (BEAKER) (test 0.04 K/ L 0.01-0.08 dpht=956) IMMATURE GRANULOCYTES-RELATIVE PERCENT (BEAKER) 1 % 0-1 (test cvfi=5487) RAD, CHEST, 1 VIEW, NON [id number] 14:28:00Reason for exam:-> hemothoraxShould this be performed at the bedside?->YesFINAL REPORT Chest, one view. HISTORY: hemothorax COMPARISON: Radiograph from 04/15/2019 IMPRESSION: The three right chest tubes are in place. The endotracheal tube is unchangedposition. The right pneumothorax has resolved. There is still some residual right lateral effusion. The right basilar atelectasis has decreased. Pulmonary venous congestion. The cardiac silhouette is unchanged. No acute bony abnormality. A gastrostomy tube overlies the gastric body. Signed: Dandre Cruz Verified Date/Time: 04/15/2019 14:28: 00 Reading Location: [facility] Radiology Reading Room SPIN/CONCENTRATION [id number] 14:00:00 Test Item Value Reference Range Comments CONCENTRATION CHARGED (BEAKER) (test rlan=7646) Done THROMBOELASTOGRAPH (TEG)2019-04-15 13:00:00 Test Item Value Reference Range Comments TEG ACTIVATED CLOTTING TIME (BEAKER) (test 5.0 minutes 4.0-7.0 uozv=3398) TEG FIBRINOGEN ACTIVITY (BEAKER) (test 75.9 degrees 61.0-73.0 tcvg=0118) TEG PLT. AGGREGATION (BEAKER) (test kutf=4543) 69.6 MM 55.0-65.0 TEG FIBRINOLYSIS (BEAKER) (test zkbk=2953) 0.1 % 0.0-5.0 TGH ACTIVATED CLOTTING TIME (BEAKER) (test 5.1 minutes 4.0-7.0 yaco=4470) TGH FIBRINOGEN ACTIVITY (BEAKER) (test 76.0 degrees 61.0-73.0 uqgt=2869) TGH PLT. AGGREGATION (BEAKER) (test oizm=9875) 65.7 MM 55.0-65.0 TGH FIBRINOLYSIS (BEAKER) (test lzvm=7040) 4.1 % 0.0-5.0 [id number] 11:47:00Medical Cytology Report Case: [id number] Authorizing Provider: Fernando Andrews MD Collected: 04/14/2019 1548 Ordering Location: [facility] Received: 04/15/2019 0913 PERIOPERATIVE SERVICES Pathologist: Sean Piedra MD Specimen: Pleural , Right, Multi loculated pleural effusions RIGHT PLEURAL FLUID (CYTOSPINS): - NEGATIVE FOR MALIGNANCY PREDOMINANTLY BLOOD Signing Pathologist Direct Phone Line: [phone] signed by Sean Piedra MD on 04/15/2019 at 11:47 [id number] multi loculated pleural effusions, pneumonia, acute respiratory failureRIGHT PLEURAL [id number] mls bloody; 4 cytospinsCollected: [id number]: [id number] [facility],Department of Pathology, [address] [place] [id number], [facility], Department of Path[facility], [address] [place] [address] , [facility], Department of [facility], [address] [place] [address], HIXQ-GLUCOSE [id number] 11:33:00 Test Item Value Reference Range Comments POC-GLUCOSE METER (BEAKER) 113 mg/dL 70-110 : TESTED AT [address] (test hnku=9396) [facility], [address]: Collection Development Librarian/Cloth Shrinker GO=[id number] for JIGNA PENN CBC W/PLT COUNT & AUTO [id number] 09:14:00 Test Item Value Reference Range Comments WHITE BLOOD CELL COUNT (BEAKER) (test gmwr=662) 6.3 K/ L 3.5-10.5 RED BLOOD CELL COUNT (BEAKER) (test ziez=753) 2.19 M/ L 4.63-6.08 HEMOGLOBIN (BEAKER) (test qmla=555) 6.0 GM/DL 13.7-17.5 HEMATOCRIT (BEAKER) (test gmfu=658) 18.5 % 40.1-51.0 MEAN CORPUSCULAR VOLUME (BEAKER) (test tpdh=042) 84.5 fL 79.0-92.2 MEAN CORPUSCULAR HEMOGLOBIN (BEAKER) (test 27.4 pg 25.7-32.2 znoq=437) MEAN CORPUSCULAR HEMOGLOBIN CONC (BEAKER) (test 32.4 GM/DL 32.3-36.5 kzub=538) RED CELL DISTRIBUTION WIDTH (BEAKER) (test 19.7 % 11.6-14.4 fmnt=869) PLATELET COUNT (BEAKER) (test gswh=811) 109 K/CU MM 150-450 MEAN PLATELET VOLUME (BEAKER) (test vipx=892) 11.5 fL 9.4-12.4 NUCLEATED RED BLOOD CELLS (BEAKER) (test 0 /100 WBC 0-0 bhys=382) NEUTROPHILS RELATIVE PERCENT (BEAKER) (test 65 % cmfb=336) LYMPHOCYTES RELATIVE PERCENT (BEAKER) (test 23 % ccvz=799) MONOCYTES RELATIVE PERCENT (BEAKER) (test 10 % ednf=938) EOSINOPHILS RELATIVE PERCENT (BEAKER) (test 1 % mwhv=131) BASOPHILS RELATIVE PERCENT (BEAKER) (test 0 % jfsh=610) NEUTROPHILS ABSOLUTE COUNT (BEAKER) (test 4.10 K/ L 1.78-5.38 nnyo=819) LYMPHOCYTES ABSOLUTE COUNT (BEAKER) (test 1.48 K/ L 1.32-3.57 ydjl=609) MONOCYTES ABSOLUTE COUNT (BEAKER) (test 0.63 K/ L 0.30-0.82 wetl=694) EOSINOPHILS ABSOLUTE COUNT (BEAKER) (test 0.07 K/ L 0.04-0.54 ebhx=498) BASOPHILS ABSOLUTE COUNT (BEAKER) (test 0.02 K/ L 0.01-0.08 etvi=802) IMMATURE GRANULOCYTES-RELATIVE PERCENT (BEAKER) 0 % 0-1 (test wlsx=1787) CALCIUM, [id number] 06:51:00 Test Item Value Reference Range Comments CALCIUM IONIZED (BEAKER) (test xppf=452) 1.11 mmol/L 1.12-1.27 PH, BLOOD (BEAKER) (test kguj=3555) 7.47 RAD, CHEST, 1 VIEW, NON [id number] 05:32:00Reason for exam:->s/p R VATSShould this be performed at the bedside?->YesFINAL REPORT CLINICAL INDICATION: Postop Comparison: 04/14/2019 2032 hours The cardiomediastinal contours are stable. Right-sided parenchymal and pleural opacities are similar toprevious. A small right pneumothorax is noted at the lateral mid to upper chest. Support lines are stable. Signed: Reji Tyler MDRepcox branson Verified Date/Time: 04/15/2019 05:32:15 BLOOD GAS, [id number] 05:01 :00 Test Item Value Reference Range Comments PH ARTERIAL (BEAKER) (test ccqt=513) 7.47 7.35-7.45 PCO2 ARTERIAL (BEAKER) (test wraw=777) 35 mmHg 35-45 PO2 ARTERIAL (BEAKER) (test ywfn=578) 200 mmHg 80-90 O2 SATURATION ARTERIAL (BEAKER) (test qhax=577) 99.4 % 96.0-97.0 HCO3 ARTERIAL (BEAKER) (test izyj=969) 25 mmol/L 21-29 BASE EXCESS ARTERIAL (BEAKER) (test blhm=043) 0.9 mmol/L -2.0-3.0 PATIENT TEMPERATURE (BEAKER) (test itaw=0213) 37.0 C FIO2 (BEAKER) (test mtlx=0644) 100.0 % BASIC METABOLIC [id number] 04:56:00 Test Item Value Reference Range Comments SODIUM (BEAKER) (test 139 meq/L 136-145 jzec=294) POTASSIUM (BEAKER) (test 4.7 meq/L 3.5-5.1 xgbp=152) CHLORIDE (BEAKER) (test 112 meq/L 98-107 yvcc=014) CO2 (BEAKER) (test 24 meq/L 22-29 xacv=903) BLOOD UREA NITROGEN 19 mg/dL 7-21 (BEAKER) (test obrp=566) CREATININE (BEAKER) (test 0.97 mg/dL 0.57-1.25 hqpj=599) GLUCOSE RANDOM (BEAKER) 115 mg/dL 70-105 (test bezh=160) CALCIUM (BEAKER) (test 7.7 mg/dL 8.4-10.2 uaxt=694) EGFR (BEAKER) (test 78 mL/min/1.73 sq m ESTIMATED GFR IS NOT rzrc=5933) ACCURATE CREATININE CLEARANCE IN PREDICTING GLOMERULAR FILTRATION RATE. ESTIMATED GFR IS NOT APPLICABLE FOR DIALYSIS PATIENTS. Collection Development Librarian ID - ELISSA MLACTIC ACID, [id number] 04:56:00 Test Item Value Reference Range Comments LACTATE BLOOD ARTERIAL (2) (BEAKER) (test 1.2 mmol/L 0.5-2.2 fftp=6142) Collection Development Librarian ID - ELISSA [id number] 04:53:00 Test Item Value Reference Range Comments PHOSPHORUS (BEAKER) (test uyxw=455) 4.3 mg/dL 2.3-4.7 Collection Development Librarian ID - ELISSA [id number] 04:53:00 Test Item Value Reference Range Comments MAGNESIUM (BEAKER) (test wnjm=249) 2.0 mg/dL 1.6-2.6 Collection Development Librarian ANGELI OBWERS [facility] W/PLT COUNT & AUTO [id number] 04:41:00 Test Item Value Reference Range Comments WHITE BLOOD CELL COUNT (BEAKER) (test thrt=952) 7.8 K/ L 3.5-10.5 RED BLOOD CELL COUNT (BEAKER) (test zgyg=791) 1.97 M/ L 4.63-6.08 HEMOGLOBIN (BEAKER) (test nofu=783) 5.2 GM/DL 13.7-17.5 HEMATOCRIT (BEAKER) (test fedi=948) 16.5 % 40.1-51.0 MEAN CORPUSCULAR VOLUME (BEAKER) (test xwry=492) 83.8 fL 79.0-92.2 MEAN CORPUSCULAR HEMOGLOBIN (BEAKER) (test 26.4 pg 25.7-32.2 vhrb=675) MEAN CORPUSCULAR HEMOGLOBIN CONC (BEAKER) (test 31.5 GM/DL 32.3-36.5 vjao=379) RED CELL DISTRIBUTION WIDTH (BEAKER) (test 20.7 % 11.6-14.4 tdli=043) PLATELET COUNT (BEAKER) (test qahy=464) 125 K/CU MM 150-450 MEAN PLATELET VOLUME (BEAKER) (test jzfr=329) 12.1 fL 9.4-12.4 NUCLEATED RED BLOOD CELLS (BEAKER) (test 0 /100 WBC 0-0 aojf=461) NEUTROPHILS RELATIVE PERCENT (BEAKER) (test 69 % ocup=243) LYMPHOCYTES RELATIVE PERCENT (BEAKER) (test 21 % vfcm=365) MONOCYTES RELATIVE PERCENT (BEAKER) (test 9 % xbob=880) EOSINOPHILS RELATIVE PERCENT (BEAKER) (test 1 % bjbj=184) BASOPHILS RELATIVE PERCENT (BEAKER) (test 0 % vmei=302) NEUTROPHILS ABSOLUTE COUNT (BEAKER) (test 5.36 K/ L 1.78-5.38 crsf=700) LYMPHOCYTES ABSOLUTE COUNT (BEAKER) (test 1.66 K/ L 1.32-3.57 xjfa=841) MONOCYTES ABSOLUTE COUNT (BEAKER) (test 0.67 K/ L 0.30-0.82 epqx=984) EOSINOPHILS ABSOLUTE COUNT (BEAKER) (test 0.06 K/ L 0.04-0.54 vuye=609) BASOPHILS ABSOLUTE COUNT (BEAKER) (test 0.01 K/ L 0.01-0.08 mstr=148) IMMATURE GRANULOCYTES-RELATIVE PERCENT (BEAKER) 0 % 0-1 (test appb=8253) [id number] 02:37:00 Test Item Value Reference Range Comments FIBRINOGEN LEVEL (BEAKER) (test leip=949) 177 mg/dl 225-434 PT/[id number] 02:37:00 Test Item Value Reference Range Comments PROTIME (BEAKER) (test yxgf=540) 19.8 seconds 11.9-14.2 INR (BEAKER) (test bbvj=191) 1.7 <=5.9 PARTIAL THROMBOPLASTIN TIME (BEAKER) (test 41.1 seconds 22.5-36.0 wnph=171) Effective 07/24/2018: PT Reference Range ChangeNew: 11.9-14.2 Previous: 11.7- 14.7RECOMMENDED COUMADIN/WARFARIN INR THERAPY RANGESSTANDARD DOSE: 2.0-3.0 Includes: PROPHYLAXIS for venous thrombosis, systemic embolization; TREATMENT for venous thrombosis and/or pulmonary embolus.HIGH RISK: Target INR is2.5-3.5 for patients wiht mechanical heart valves.[id number] 02:37:00 Test Item Value Reference Range Comments PARTIAL THROMBOPLASTIN TIME (BEAKER) (test 41.1 seconds 22.5-36.0 lcvx=556) PROTHROMBIN TIME/[id number] 02:36:00 Test Item Value Reference Range Comments PROTIME (BEAKER) (test mrhl=522) 19.8 seconds 11.9-14.2 INR (BEAKER) (test gbhd=829) 1.7 <=5.9 Effective 07/24/2018: PT Reference Range ChangeNew: 11.9-14.2 Previous: 11.7- 14.7RECOMMENDED COUMADIN/WARFARIN INR THERAPY RANGESSTANDARD DOSE: 2.0-3.0 Includes: PROPHYLAXIS for venous thrombosis, systemic embolization; TREATMENT for venous thrombosis and/or pulmonary embolus.HIGH RISK: Target INR is2.5-3.5 for patients wiht mechanical heart valves.CBC W/PLT COUNT & AUTO [id number] 01:17:00 Test Item Value Reference Range Comments WHITE BLOOD CELL COUNT (BEAKER) 10.9 K/ L 3.5-10.5 (test ewct=960) RED BLOOD CELL COUNT (BEAKER) 1.74 M/ L 4.63-6.08 (test pwka=724) HEMOGLOBIN (BEAKER) (test 4.4 GM/DL 13.7-17.5 Post surgery specimen per jcoe=997) [id number]. HEMATOCRIT (BEAKER) (test 14.6 % 40.1-51.0 djfc=310) MEAN CORPUSCULAR VOLUME 83.9 fL 79.0-92.2 (BEAKER) (test kfwf=676) MEAN CORPUSCULAR HEMOGLOBIN 25.3 pg 25.7-32.2 (BEAKER) (test lqfb=077) MEAN CORPUSCULAR HEMOGLOBIN 30.1 GM/DL 32.3-36.5 CONC (BEAKER) (test jfup=990) RED CELL DISTRIBUTION WIDTH 21.8 % 11.6-14.4 (BEAKER) (test gpso=501) PLATELET COUNT (BEAKER) (test 130 K/CU MM 150-450 hibu=151) MEAN PLATELET VOLUME (BEAKER) 11.9 fL 9.4-12.4 (test lwcb=836) NUCLEATED RED BLOOD CELLS 0 /100 WBC 0-0 (BEAKER) (test wiai=369) NEUTROPHILS RELATIVE PERCENT 79 % (BEAKER) (test lwex=683) LYMPHOCYTES RELATIVE PERCENT 14 % (BEAKER) (test ewhi=959) MONOCYTES RELATIVE PERCENT 7 % (BEAKER) (test dhnv=671) EOSINOPHILS RELATIVE PERCENT 0 % (BEAKER) (test dgdl=520) BASOPHILS RELATIVE PERCENT 0 % (BEAKER) (test bwqp=052) NEUTROPHILS ABSOLUTE COUNT 8.60 K/ L 1.78-5.38 (BEAKER) (test mvtz=038) LYMPHOCYTES ABSOLUTE COUNT 1.48 K/ L 1.32-3.57 (BEAKER) (test qcbg=094) MONOCYTES ABSOLUTE COUNT 0.73 K/ L 0.30-0.82 (BEAKER) (test onlb=463) EOSINOPHILS ABSOLUTE COUNT 0.04 K/ L 0.04-0.54 (BEAKER) (test lvcw=381) BASOPHILS ABSOLUTE COUNT 0.01 K/ L 0.01-0.08 (BEAKER) (test dzjo=567) IMMATURE GRANULOCYTES-RELATIVE 1 % 0-1 PERCENT (BEAKER) (test yaof=2207) [id number] 00:58:00 Test Item Value Reference Range Comments CORTISOL, TOTAL (BEAKER) (test beaq=0690) 10.6 ug/dL 3.7-19.4 Collection Development Librarian ID - BSPOCT-GLUCOSE [id number] 00:35:00 Test Item Value Reference Range Comments POC-GLUCOSE METER (BEAKER) 105 mg/dL 70-110 : TESTED AT [facility] [address] [facility] (test yizu=3220) [facility], [address]: Collection Development Librarian/Cloth Shrinker CI=[id number] for Yuli Powell, CHEST, 1 VIEW, NON [id number] 22:34:00On arrival to [facility] for exam :->s/p R VATS decorticationShould this be performed at the bedside?-> YesFINAL REPORT TECHNIQUE: Frontal view of the chest. INDICATION: s/p R VATS decortication COMPARISON:10 hours prior IMPRESSION:Lines and hardware: ET tube terminates 5.8 cm above the shruthi. Three right-sided chest tubes in place. Intact median sternotomy wires.Heart and mediastinum: Stable.Lungs and pleura: Scattered right atelectasis and postsurgical changes. Overall improved ventilation. Small right pleural effusion. Probable right lateral ex vacuo pneumothorax.Soft tissues and bones: No acute abnormality. Postsurgical right lateral chest soft tissue changes. Signed: Dav Garcia MDReport Verified Date/Time: 04/14/2019 22:34:49 Reading Location: [facility] B1 [id number] Consult Reading Room [id number] 20:24:00 Test Item Value Reference Range Comments PHOSPHORUS (BEAKER) (test xefy=184) 4.0 mg/dL 2.3-4.7 Collection Development Librarian ID - [id number] 20:24:00 Test Item Value Reference Range Comments MAGNESIUM (BEAKER) (test pybh=167) 1.8 mg/dL 1.6-2.6 Collection Development Librarian ID - BSBLOOD GAS, [id number] 20:22:00 Test Item Value Reference Range Comments PH ARTERIAL (BEAKER) (test kncc=010) 7.44 7.35-7.45 PCO2 ARTERIAL (BEAKER) (test detb=383) 39 mmHg 35-45 PO2 ARTERIAL (BEAKER) (test iezh=959) 220 mmHg 80-90 O2 SATURATION ARTERIAL (BEAKER) (test lqug=648) 99.5 % 96.0-97.0 HCO3 ARTERIAL (BEAKER) (test dzsc=613) 26 mmol/L 21-29 BASE EXCESS ARTERIAL (BEAKER) (test nqyq=012) 1.5 mmol/L -2.0-3.0 PATIENT TEMPERATURE (BEAKER) (test dcgw=8898) 36.8 C FIO2 (BEAKER) (test wyvk=4349) 80.0 % CALCIUM, [id number] 20:19:00 Test Item Value Reference Range Comments CALCIUM IONIZED (BEAKER) (test mpit=875) 1.23 mmol/L 1.12-1.27 PH, BLOOD (BEAKER) (test ftxc=1375) 7.44 COMPREHENSIVE METABOLIC [id number] 19:53:00 Test Item Value Reference Range Comments TOTAL PROTEIN (BEAKER) 5.5 gm/dL 6.0-8.3 (test yesg=691) ALBUMIN (BEAKER) (test 1.8 g/dL 3.5-5.0 iiiy=2394) ALKALINE PHOSPHATASE 157 U/L 40-150 (BEAKER) (test vcwc=626) BILIRUBIN TOTAL (BEAKER) 1.0 mg/dL 0.2-1.2 (test nmqm=788) SODIUM (BEAKER) (test 141 meq/L 136-145 hhea=504) POTASSIUM (BEAKER) (test 3.6 meq/L 3.5-5.1 ocef=202) CHLORIDE (BEAKER) (test 107 meq/L 98-107 xagg=155) CO2 (BEAKER) (test 25 meq/L 22-29 ixkz=307) BLOOD UREA NITROGEN 16 mg/dL 7-21 (BEAKER) (test sdjq=527) CREATININE (BEAKER) (test 0.88 mg/dL 0.57-1.25 gbbn=506) GLUCOSE RANDOM (BEAKER) 99 mg/dL 70-105 (test acmj=836) CALCIUM (BEAKER) (test 7.7 mg/dL 8.4-10.2 olox=501) AST (SGOT) (BEAKER) (test 38 U/L 5-34 nmyz=760) ALT (SGPT) (BEAKER) (test 30 U/L 6-55 gfpz=946) EGFR (BEAKER) (test 87 mL/min/1.73 sq m ESTIMATED GFR IS NOT aeta=7661) ACCURATE CREATININE CLEARANCE IN PREDICTING GLOMERULAR FILTRATION RATE. ESTIMATED GFR IS NOT APPLICABLE FOR DIALYSIS PATIENTS. Collection Development Librarian ID - BSBLOOD GAS, [id number] 17:56:00 Test Item Value Reference Range Comments PH ARTERIAL (BEAKER) (test cxnu=131) 7.48 7.35-7.45 PCO2 ARTERIAL (BEAKER) (test vxzb=548) 37 mmHg 35-45 PO2 ARTERIAL (BEAKER) (test dwvj=210) 391 mmHg 80-90 O2 SATURATION ARTERIAL (BEAKER) (test prpk=831) 99.8 % 96.0-97.0 HCO3 ARTERIAL (BEAKER) (test lgdh=383) 27 mmol/L 21-29 BASE EXCESS ARTERIAL (BEAKER) (test kahs=686) 2.8 mmol/L -2.0-3.0 PATIENT TEMPERATURE (BEAKER) (test pogz=1636) 36.0 C FIO2 (BEAKER) (test vfdi=5945) 100.0 % CALCIUM, [id number] 17:56:00 Test Item Value Reference Range Comments CALCIUM IONIZED (BEAKER) (test dflr=689) 1.30 mmol/L 1.12-1.27 PH, BLOOD (BEAKER) (test rlgm=1552) 7.46 POTASSIUM-STAT [id number] 17:56:00 Test Item Value Reference Range Comments POTASSIUM (BEAKER) (test xabu=681) 3.4 meq/L 3.6-5.5 HGB/HCT (H&H) - STAT [id number] 17:56:00 Test Item Value Reference Range Comments HEMOGLOBIN (BEAKER) (test fouq=782) 9.0 g/dL 13.0-16.8 HEMATOCRIT (BEAKER) (test azgq=835) 26.0 % 40.0-50.0 GLUCOSE-STAT [id number] 17:55:00 Test Item Value Reference Range Comments GLUCOSE RANDOM (BEAKER) (test zagx=687) 100 mg/dL 70-110 SODIUM NA-STAT [id number] 17:55:00 Test Item Value Reference Range Comments SODIUM (BEAKER) (test mphc=584) 138 meq/L 135-148 BLOOD GAS, [id number] 16:42:00 Test Item Value Reference Range Comments PH ARTERIAL (BEAKER) (test azti=748) 7.52 7.35-7.45 PCO2 ARTERIAL (BEAKER) (test jdcv=031) 35 mmHg 35-45 PO2 ARTERIAL (BEAKER) (test dpso=369) 263 mmHg 80-90 O2 SATURATION ARTERIAL (BEAKER) (test cooh=725) 99.7 % 96.0-97.0 HCO3 ARTERIAL (BEAKER) (test cjut=448) 28 mmol/L 21-29 BASE EXCESS ARTERIAL (BEAKER) (test awrl=270) 5.1 mmol/L -2.0-3.0 PATIENT TEMPERATURE (BEAKER) (test mzzv=1531) 36.2 C FIO2 (BEAKER) (test eqba=2104) 100.0 % POTASSIUM-STAT [id number] 16:42:00 Test Item Value Reference Range Comments POTASSIUM (BEAKER) (test yxcw=941) 3.4 meq/L 3.6-5.5 HGB/HCT (H&H) - STAT [id number] 16:42:00 Test Item Value Reference Range Comments HEMOGLOBIN (BEAKER) (test grhn=165) 10.1 g/dL 13.0-16.8 HEMATOCRIT (BEAKER) (test fvyc=209) 30.0 % 40.0-50.0 CALCIUM, [id number] 16:41:00 Test Item Value Reference Range Comments CALCIUM IONIZED (BEAKER) (test bjqe=101) 1.12 mmol/L 1.12-1.27 PH, BLOOD (BEAKER) (test rrvo=6052) 7.51 GLUCOSE-STAT [id number] 16:39:00 Test Item Value Reference Range Comments GLUCOSE RANDOM (BEAKER) (test vodh=807) 104 mg/dL 70-110 SODIUM NA-STAT [id number] 16:39:00 Test Item Value Reference Range Comments SODIUM (BEAKER) (test myuw=024) 137 meq/L 135-148 GLUCOSE-STAT [id number] 15:31:00 Test Item Value Reference Range Comments GLUCOSE RANDOM (BEAKER) (test ztcg=373) 92 mg/dL 70-110 SODIUM NA-STAT [id number] 15:31:00 Test Item Value Reference Range Comments SODIUM (BEAKER) (test cayt=939) 135 meq/L 135-148 CALCIUM, [id number] 15:31:00 Test Item Value Reference Range Comments CALCIUM IONIZED (BEAKER) (test atdd=775) 1.07 mmol/L 1.12-1.27 PH, BLOOD (BEAKER) (test cuuk=0258) 7.55 BLOOD GAS, [id number] 15:31:00 Test Item Value Reference Range Comments PH ARTERIAL (BEAKER) (test yqgj=844) 7.55 7.35-7.45 PCO2 ARTERIAL (BEAKER) (test jedy=883) 33 mmHg 35-45 PO2 ARTERIAL (BEAKER) (test qfyo=220) 390 mmHg 80-90 O2 SATURATION ARTERIAL (BEAKER) (test dqly=294) 99.9 % 96.0-97.0 HCO3 ARTERIAL (BEAKER) (test miqz=907) 28 mmol/L 21-29 BASE EXCESS ARTERIAL (BEAKER) (test wrjt=036) 5.3 mmol/L -2.0-3.0 PATIENT TEMPERATURE (BEAKER) (test ajnm=2804) 36.3 C FIO2 (BEAKER) (test pijg=8026) 100.0 % POTASSIUM-STAT [id number] 15:31:00 Test Item Value Reference Range Comments POTASSIUM (BEAKER) (test kyuf=804) 3.4 meq/L 3.6-5.5 HGB/HCT (H&H) - STAT [id number] 15:31:00 Test Item Value Reference Range Comments HEMOGLOBIN (BEAKER) (test ehxb=724) 10.2 g/dL 13.0-16.8 HEMATOCRIT (BEAKER) (test qkfc=521) 30.0 % 40.0-50.0 RAD, CHEST, 1 VIEW, NON [id number] 10:51:00Reason for exam:->eval pleural effusionsShould this be performed at the bedside?->YesFINAL REPORT EXAM: Frontal chest radiograph HISTORY PROVIDED: Evaluate pleural effusions COMPARISON: 04/13/2019 IMPRESSION:There is persistent near complete opacification of the right hemithorax which may be partially explained by a large pleural effusion as well as atelectasis and/or airspace disease. A small left pleural effusion persists. There are persistent interstitial opacities in the left lung which may reflect edema or atypical pneumonitis. No discernible pneumothorax.The cardiac silhouette remains partially obscured. There is atherosclerotic calcification of the aorta. Sternotomy wires are again noted. No acute osseous abnormality. A catheter remains projecting over the right upper quadrant of the abdomen. Signed: Fredi Maldonado MDReport Verified Date/Time: 04/14/2019 10:51:03 Reading Location: [facility] Electronically signed by: FREDI MALDONADO on 10:51 AMBASIC METABOLIC [id number] 01:52:00 Test Item Value Reference Range Comments SODIUM (BEAKER) (test 138 meq/L 136-145 ximn=318) POTASSIUM (BEAKER) (test 3.5 meq/L 3.5-5.1 wwzf=445) CHLORIDE (BEAKER) (test 105 meq/L 98-107 bydw=498) CO2 (BEAKER) (test 29 meq/L 22-29 wdyi=288) BLOOD UREA NITROGEN 16 mg/dL 7-21 (BEAKER) (test hfjt=671) CREATININE (BEAKER) (test 0.86 mg/dL 0.57-1.25 ltnw=560) GLUCOSE RANDOM (BEAKER) 109 mg/dL 70-105 (test idxj=455) CALCIUM (BEAKER) (test 7.6 mg/dL 8.4-10.2 aezx=880) EGFR (BEAKER) (test 90 mL/min/1.73 sq m ESTIMATED GFR IS NOT ayoi=8836) ACCURATE CREATININE CLEARANCE IN PREDICTING GLOMERULAR FILTRATION RATE. ESTIMATED GFR IS NOT APPLICABLE FOR DIALYSIS PATIENTS. Collection Development Librarian ID - PIAYA [id number] 01:51:00 Test Item Value Reference Range Comments PHOSPHORUS (BEAKER) (test ktqr=967) 2.8 mg/dL 2.3-4.7 Collection Development Librarian ID - EMILIE [id number] 01:51:00 Test Item Value Reference Range Comments MAGNESIUM (BEAKER) (test nfrg=574) 2.1 mg/dL 1.6-2.6 Collection Development Librarian ID [employer] PHAN LCBC W/PLT COUNT & AUTO [id number] 01:30:00 Test Item Value Reference Range Comments WHITE BLOOD CELL COUNT (BEAKER) (test pmiw=393) 6.4 K/ L 3.5-10.5 RED BLOOD CELL COUNT (BEAKER) (test okmc=578) 4.04 M/ L 4.63-6.08 HEMOGLOBIN (BEAKER) (test zuas=230) 10.4 GM/DL 13.7-17.5 HEMATOCRIT (BEAKER) (test dmwj=077) 33.4 % 40.1-51.0 MEAN CORPUSCULAR VOLUME (BEAKER) (test evko=759) 82.7 fL 79.0-92.2 MEAN CORPUSCULAR HEMOGLOBIN (BEAKER) (test 25.7 pg 25.7-32.2 ivhn=130) MEAN CORPUSCULAR HEMOGLOBIN CONC (BEAKER) (test 31.1 GM/DL 32.3-36.5 nili=603) RED CELL DISTRIBUTION WIDTH (BEAKER) (test 23.1 % 11.6-14.4 yzsu=143) PLATELET COUNT (BEAKER) (test fuvd=415) 183 K/CU MM 150-450 MEAN PLATELET VOLUME (BEAKER) (test ipnv=407) 11.9 fL 9.4-12.4 NUCLEATED RED BLOOD CELLS (BEAKER) (test 0 /100 WBC 0-0 ivlk=015) NEUTROPHILS RELATIVE PERCENT (BEAKER) (test 50 % sunq=770) LYMPHOCYTES RELATIVE PERCENT (BEAKER) (test 34 % lyzw=982) MONOCYTES RELATIVE PERCENT (BEAKER) (test 12 % nmhe=476) EOSINOPHILS RELATIVE PERCENT (BEAKER) (test 3 % pfzw=442) BASOPHILS RELATIVE PERCENT (BEAKER) (test 1 % xdpn=141) NEUTROPHILS ABSOLUTE COUNT (BEAKER) (test 3.19 K/ L 1.78-5.38 bcpu=376) LYMPHOCYTES ABSOLUTE COUNT (BEAKER) (test 2.13 K/ L 1.32-3.57 gecy=952) MONOCYTES ABSOLUTE COUNT (BEAKER) (test 0.77 K/ L 0.30-0.82 ihmd=443) EOSINOPHILS ABSOLUTE COUNT (BEAKER) (test 0.21 K/ L 0.04-0.54 mubx=474) BASOPHILS ABSOLUTE COUNT (BEAKER) (test 0.04 K/ L 0.01-0.08 oytf=523) IMMATURE GRANULOCYTES-RELATIVE PERCENT (BEAKER) 0 % 0-1 (test afld=3175) PROTHROMBIN TIME/[id number] 01:26:00 Test Item Value Reference Range Comments PROTIME (BEAKER) (test faox=302) 14.7 seconds 11.9-14.2 INR (BEAKER) (test uald=845) 1.2 <=5.9 Effective 07/24/2018: PT Reference Range ChangeNew: 11.9-14.2 Previous: 11.7- 14.7RECOMMENDED COUMADIN/WARFARIN INR THERAPY RANGESSTANDARD DOSE: 2.0-3.0 Includes: PROPHYLAXIS for venous thrombosis, systemic embolization; TREATMENT for venous thrombosis and/or pulmonary embolus.HIGH RISK: Target INR is2.5-3.5 for patients wiht mechanical heart valves.POCT-GLUCOSE [id number] 20:47:00 Test Item Value Reference Range Comments POC-GLUCOSE METER (BEAKER) 114 mg/dL 70-110 : TESTED AT [address] (test chpf=3104) [facility], [id number]: Collection Development Librarian/Cloth Shrinker IG=[id number] for ALBERTINA [place] POCT-GLUCOSE [id number] 17:43:00 Test Item Value Reference Range Comments POC-GLUCOSE METER (BEAKER) 117 mg/dL 70-110 : TESTED AT [address] (test nojs=9347) [facility], [address]: Collection Development Librarian/Cloth Shrinker [id number] for AMALIA COOPER POCT-GLUCOSE [id number] 12:16:00 Test Item Value Reference Range Comments POC-GLUCOSE METER (BEAKER) 111 mg/dL 70-110 : TESTED AT [address] (test hrat=5927) [facility], [address]: Collection Development Librarian/Cloth Shrinker [id number] for AMALIA COOPER RAD, CHEST, 1 VIEW, NON [id number] 08:47:00Reason for exam:->right pleural effusion s/p TPAShould this be performed at the bedside?->YesFINAL REPORT History: Right pleural effusion, status post TPA Comparison: 04/12/2019, 04/11/2019 Findings: Interval increase in opacity in the right hemithorax. While a portion ofthis may be due to an increase in the patient's right pleural effusion, some of this appears to be secondary to progressive right lung collapse. Minimal left pleural effusion. No pneumothorax. Mild vascular congestion. The cardiac shadow is partially obscured. Sternotomy wires are present. A catheter projects in the right upper quadrant of the abdomen. Signed: Fredi Lucas MDReport Verified Date/Time: 08:47:02 Reading Location: [address] Transitional Reading Room BASIC METABOLIC [id number] 06:13:00 Test Item Value Reference Range Comments SODIUM (BEAKER) (test 139 meq/L 136-145 dplq=380) POTASSIUM (BEAKER) (test 3.3 meq/L 3.5-5.1 grtr=086) CHLORIDE (BEAKER) (test 106 meq/L 98-107 oiir=614) CO2 (BEAKER) (test 28 meq/L 22-29 bhgc=932) BLOOD UREA NITROGEN 15 mg/dL 7-21 (BEAKER) (test amrg=618) CREATININE (BEAKER) (test 0.82 mg/dL 0.57-1.25 yhdi=858) GLUCOSE RANDOM (BEAKER) 98 mg/dL 70-105 (test vtvt=547) CALCIUM (BEAKER) (test 7.6 mg/dL 8.4-10.2 zavk=294) EGFR (BEAKER) (test 95 mL/min/1.73 sq m ESTIMATED GFR IS NOT jykr=9053) ACCURATE CREATININE CLEARANCE IN PREDICTING GLOMERULAR FILTRATION RATE. ESTIMATED GFR IS NOT APPLICABLE FOR DIALYSIS PATIENTS. Collection Development Librarian ID - [facility] [id number] 06:12:00 Test Item Value Reference Range Comments TOTAL PROTEIN (BEAKER) (test swve=889) 5.5 gm/dL 6.0-8.3 ALBUMIN (BEAKER) (test zlrl=2207) 1.8 g/dL 3.5-5.0 BILIRUBIN TOTAL (BEAKER) (test ybsb=388) 1.1 mg/dL 0.2-1.2 BILIRUBIN DIRECT (BEAKER) (test obuj=694) 0.7 mg/dL 0.1-0.5 ALKALINE PHOSPHATASE (BEAKER) (test rluf=771) 157 U/L 40-150 AST (SGOT) (BEAKER) (test jafa=831) 38 U/L 5-34 ALT (SGPT) (BEAKER) (test mtqs=454) 34 U/L 6-55 Collection Development Librarian ID - KENNPOCT-GLUCOSE [id number] 06:10:00 Test Item Value Reference Range Comments POC-GLUCOSE METER (BEAKER) 126 mg/dL 70-110 : TESTED AT [facility] [address] [facility] (test upon=8085) [facility], [address]: Collection Development Librarian/Cloth Shrinker [id number] for QUIQUE MOTLEY CBC W/PLT COUNT & AUTO [id number] 06:07:00 Test Item Value Reference Range Comments WHITE BLOOD CELL COUNT (BEAKER) (test bqke=415) 7.1 K/ L 3.5-10.5 RED BLOOD CELL COUNT (BEAKER) (test lpgh=379) 3.79 M/ L 4.63-6.08 HEMOGLOBIN (BEAKER) (test gyxo=007) 9.7 GM/DL 13.7-17.5 HEMATOCRIT (BEAKER) (test iaff=137) 31.6 % 40.1-51.0 MEAN CORPUSCULAR VOLUME (BEAKER) (test hzgl=126) 83.4 fL 79.0-92.2 MEAN CORPUSCULAR HEMOGLOBIN (BEAKER) (test 25.6 pg 25.7-32.2 gguo=848) MEAN CORPUSCULAR HEMOGLOBIN CONC (BEAKER) (test 30.7 GM/DL 32.3-36.5 zpht=243) RED CELL DISTRIBUTION WIDTH (BEAKER) (test 23.4 % 11.6-14.4 dtip=089) PLATELET COUNT (BEAKER) (test eygg=014) 171 K/CU MM 150-450 MEAN PLATELET VOLUME (BEAKER) (test lmoc=590) 12.2 fL 9.4-12.4 NUCLEATED RED BLOOD CELLS (BEAKER) (test 0 /100 WBC 0-0 fbrf=689) NEUTROPHILS RELATIVE PERCENT (BEAKER) (test 56 % abfu=086) LYMPHOCYTES RELATIVE PERCENT (BEAKER) (test 28 % khex=259) MONOCYTES RELATIVE PERCENT (BEAKER) (test 13 % rwkj=412) EOSINOPHILS RELATIVE PERCENT (BEAKER) (test 3 % eyky=005) BASOPHILS RELATIVE PERCENT (BEAKER) (test 0 % kzjf=339) NEUTROPHILS ABSOLUTE COUNT (BEAKER) (test 3.95 K/ L 1.78-5.38 vcea=405) LYMPHOCYTES ABSOLUTE COUNT (BEAKER) (test 1.96 K/ L 1.32-3.57 kkua=666) MONOCYTES ABSOLUTE COUNT (BEAKER) (test 0.90 K/ L 0.30-0.82 rind=760) EOSINOPHILS ABSOLUTE COUNT (BEAKER) (test 0.20 K/ L 0.04-0.54 wmvc=731) BASOPHILS ABSOLUTE COUNT (BEAKER) (test 0.03 K/ L 0.01-0.08 acpd=633) IMMATURE GRANULOCYTES-RELATIVE PERCENT (BEAKER) 0 % 0-1 (test csoy=8712) [id number] 06:07:00 Test Item Value Reference Range Comments PHOSPHORUS (BEAKER) (test cdat=599) 3.0 mg/dL 2.3-4.7 Collection Development Librarian ID - [id number] 06:07:00 Test Item Value Reference Range Comments MAGNESIUM (BEAKER) (test pfiy=420) 2.1 mg/dL 1.6-2.6 Collection Development Librarian ID - [id number] 05:52:00 Test Item Value Reference Range Comments PARTIAL THROMBOPLASTIN TIME (BEAKER) (test 32.7 seconds 22.5-36.0 oesq=070) POCT-GLUCOSE [id number] 17:32:00 Test Item Value Reference Range Comments POC-GLUCOSE METER (BEAKER) 83 mg/dL 70-110 : TESTED AT [facility] [address] [facility] (test dzrj=5852) [facility], [address]: Collection Development Librarian/Cloth Shrinker [id number] for MARQUIS LIZ BODY FLUID CULTURE + GRAM [id number] 14:07:00 Test Item Value Reference Range Comments CULTURE (BEAKER) (test oeyg=4347) No growth GRAM STAIN RESULT (BEAKER) (test <1+ WBCs dlrx=3296) GRAM STAIN RESULT (BEAKER) (test <1+ gram negative rods kgxg=16108) POCT-GLUCOSE [id number] 12:20:00 Test Item Value Reference Range Comments POC-GLUCOSE METER (BEAKER) 84 mg/dL 70-110 : TESTED AT [facility] [address] (test xwbk=5670) [facility], [address]: Collection Development Librarian/Cloth Shrinker [id number] for MARQUIS LIZ RAD, CHEST, 1 VIEW, NON [id number] 07:44:00Reason for exam:->eval pleural effusionsShould this be performed at the bedside?->YesFINAL REPORT TECHNIQUE: Frontal view of the chest. INDICATION: 63-year -old man with pleural effusions. COMPARISON: Chest radiograph 04/11/2019. FINDINGS: LINES/TUBES: Unchanged. LUNGS/PLEURA: Increased pleural and/or airspace opacities on the right. Persistent mild patchy airspace opacities in the left lower lung zone. Persistent central pulmonary venous congestion. No pneumothorax. HEART AND MEDIASTINUM: The cardiomediastinal silhouette is unchanged. Atherosclerotic calcifications in the thoracic aorta. SOFT TISSUES AND BONES: Unchanged median sternotomy wires. Soft tissuesare unremarkable. IMPRESSION:Worsened pleural and/or airspace opacities on the right. Otherwise, nosignificant change since 04/11/2019. Signed: Tonie Rivaseport Verified Date/Time: 04/12/201907:44:33 Reading Location: [address] Body Reading Room BASIC METABOLIC [id number] 06:46:00 Test Item Value Reference Range Comments SODIUM (BEAKER) (test 142 meq/L 136-145 pbrg=994) POTASSIUM (BEAKER) (test 3.2 meq/L 3.5-5.1 nnao=661) CHLORIDE (BEAKER) (test 107 meq/L 98-107 zycm=421) CO2 (BEAKER) (test 29 meq/L 22-29 nigh=064) BLOOD UREA NITROGEN 18 mg/dL 7-21 (BEAKER) (test hjvn=060) CREATININE (BEAKER) (test 0.89 mg/dL 0.57-1.25 pluw=084) GLUCOSE RANDOM (BEAKER) 80 mg/dL 70-105 (test wkns=292) CALCIUM (BEAKER) (test 7.4 mg/dL 8.4-10.2 dsjy=274) EGFR (BEAKER) (test 86 mL/min/1.73 sq m ESTIMATED GFR IS NOT pqcg=2650) ACCURATE CREATININE CLEARANCE IN PREDICTING GLOMERULAR FILTRATION RATE. ESTIMATED GFR IS NOT APPLICABLE FOR DIALYSIS PATIENTS. Collection Development Librarian ID - ELISSA [facility]BC W/PLT COUNT & AUTO [id number] 06:45:00 Test Item Value Reference Range Comments WHITE BLOOD CELL COUNT (BEAKER) (test cmku=384) 5.6 K/ L 3.5-10.5 RED BLOOD CELL COUNT (BEAKER) (test lzlm=028) 3.39 M/ L 4.63-6.08 HEMOGLOBIN (BEAKER) (test ktzh=047) 8.6 GM/DL 13.7-17.5 HEMATOCRIT (BEAKER) (test zgny=345) 28.2 % 40.1-51.0 MEAN CORPUSCULAR VOLUME (BEAKER) (test tkts=240) 83.2 fL 79.0-92.2 MEAN CORPUSCULAR HEMOGLOBIN (BEAKER) (test 25.4 pg 25.7-32.2 zvxe=347) MEAN CORPUSCULAR HEMOGLOBIN CONC (BEAKER) (test 30.5 GM/DL 32.3-36.5 aiak=427) RED CELL DISTRIBUTION WIDTH (BEAKER) (test 23.5 % 11.6-14.4 loig=860) PLATELET COUNT (BEAKER) (test unre=179) 171 K/CU MM 150-450 MEAN PLATELET VOLUME (BEAKER) (test aivk=836) 12.2 fL 9.4-12.4 NUCLEATED RED BLOOD CELLS (BEAKER) (test 0 /100 WBC 0-0 uouc=916) NEUTROPHILS RELATIVE PERCENT (BEAKER) (test 49 % unvt=361) LYMPHOCYTES RELATIVE PERCENT (BEAKER) (test 33 % vzmi=914) MONOCYTES RELATIVE PERCENT (BEAKER) (test 13 % qgkh=614) EOSINOPHILS RELATIVE PERCENT (BEAKER) (test 5 % edhu=344) BASOPHILS RELATIVE PERCENT (BEAKER) (test 1 % qsco=985) NEUTROPHILS ABSOLUTE COUNT (BEAKER) (test 2.74 K/ L 1.78-5.38 ufmo=894) LYMPHOCYTES ABSOLUTE COUNT (BEAKER) (test 1.82 K/ L 1.32-3.57 ajaz=095) MONOCYTES ABSOLUTE COUNT (BEAKER) (test 0.72 K/ L 0.30-0.82 eksc=806) EOSINOPHILS ABSOLUTE COUNT (BEAKER) (test 0.25 K/ L 0.04-0.54 nsjz=356) BASOPHILS ABSOLUTE COUNT (BEAKER) (test 0.03 K/ L 0.01-0.08 slwg=089) IMMATURE GRANULOCYTES-RELATIVE PERCENT (BEAKER) 0 % 0-1 (test mivl=6432) [id number] 06:45:00 Test Item Value Reference Range Comments PHOSPHORUS (BEAKER) (test dbqd=528) 3.8 mg/dL 2.3-4.7 Collection Development Librarian ID - ELISSA [id number] 06:45:00 Test Item Value Reference Range Comments MAGNESIUM (BEAKER) (test yvnj=384) 2.1 mg/dL 1.6-2.6 Collection Development Librarian ID - ELISSA MPOCT-GLUCOSE [id number] 05:33:00 Test Item Value Reference Range Comments POC-GLUCOSE METER (BEAKER) 78 mg/dL 70-110 : TESTED AT [address] (test bzql=7110) [facility], [address]: Collection Development Librarian/Cloth Shrinker [id number]=[id number] for SIOBHAN, BARI POCT-GLUCOSE [id number] 00:19:00 Test Item Value Reference Range Comments POC-GLUCOSE METER (BEAKER) 78 mg/dL 70-110 : Notified RN/MD: TESTED AT (test yvec=7278) [address], [address]: Collection Development Librarian/Cloth Shrinker [id number] for SIOBHAN, BARI POCT-GLUCOSE [id number] 17:51:00 Test Item Value Reference Range Comments POC-GLUCOSE METER (BEAKER) 89 mg/dL 70-110 : TESTED AT [address] (test cfqp=7202) [facility], [address]: Collection Development Librarian/Cloth Shrinker VG=[id number] for RADHA CLAROS RAD, CHEST, 1 VIEW, NON [id number] 13:20:00Reason for exam:->eval pleural effusionsShould this be performed at the bedside?->YesFINAL REPORT RAD, CHEST, 1 VIEW, NON DEPT INDICATION: eval pleural effusions COMPARISON: Prior day's exam FINDINGS: Portable frontal view of the chest. IMPRESSION: Support Lines: Feeding tube has been removed. Lungs and pleura: Unchanged airspace and pleural opacities. Pleural catheter is stable.Heart and mediastinum: Stable contours. Stable surgical changes.Additional findings: None. Signed: JR Jara Robert MDRepanni Verified Date/Time: 04/11/2019 13:20:58 ReadingLocation: [facility] Reading Room Electronically signed by: CHRISTIE JARA on 01:20 PMPOCT-GLUCOSE [id number] 12:21:00 Test Item Value Reference Range Comments POC-GLUCOSE METER (BEAKER) 82 mg/dL 70-110 : TESTED AT [address] (test aoyx=5285) [facility], [address]: Collection Development Librarian/Cloth Shrinker EB=[id number] for RADHA CLAROS POCT-GLUCOSE [id number] 10:51:00 Test Item Value Reference Range Comments POC-GLUCOSE METER (BEAKER) 84 mg/dL 70-110 : TESTED AT [address] (test sibs=8466) [facility], [address]: Collection Development Librarian/Cloth Shrinker [id number] for DUSTIN MKIE BASIC METABOLIC [id number] 08:47:00 Test Item Value Reference Range Comments SODIUM (BEAKER) (test 139 meq/L 136-145 djyg=163) POTASSIUM (BEAKER) (test 3.2 meq/L 3.5-5.1 ubjs=040) CHLORIDE (BEAKER) (test 105 meq/L 98-107 epio=407) CO2 (BEAKER) (test 27 meq/L 22-29 uddx=789) BLOOD UREA NITROGEN 23 mg/dL 7-21 (BEAKER) (test klxs=507) CREATININE (BEAKER) (test 0.88 mg/dL 0.57-1.25 zkpa=015) GLUCOSE RANDOM (BEAKER) 81 mg/dL 70-105 (test bmtx=574) CALCIUM (BEAKER) (test 7.0 mg/dL 8.4-10.2 fxxu=268) EGFR (BEAKER) (test 87 mL/min/1.73 sq m ESTIMATED GFR IS NOT pmhh=1067) ACCURATE CREATININE CLEARANCE IN PREDICTING GLOMERULAR FILTRATION RATE. ESTIMATED GFR IS NOT APPLICABLE FOR DIALYSIS PATIENTS. Collection Development Librarian ID - SONIA [id number] 08:46:00 Test Item Value Reference Range Comments PHOSPHORUS (BEAKER) (test jswl=136) 3.3 mg/dL 2.3-4.7 Collection Development Librarian ID - SONIA [id number] 08:46:00 Test Item Value Reference Range Comments MAGNESIUM (BEAKER) (test malh=571) 2.2 mg/dL 1.6-2.6 Collection Development Librarian ID - SONIA FPOCT-GLUCOSE [id number] 07:13:00 Test Item Value Reference Range Comments POC-GLUCOSE METER (BEAKER) 84 mg/dL 70-110 : TESTED AT [facility] [address] [facility] (test wojx=6789) [facility], [address]: Collection Development Librarian/Cloth Shrinker [id number] for MARÍA DERAS CBC W/PLT COUNT & AUTO [id number] 06:26:00 Test Item Value Reference Range Comments WHITE BLOOD CELL COUNT (BEAKER) (test jbmb=083) 5.6 K/ L 3.5-10.5 RED BLOOD CELL COUNT (BEAKER) (test zfxa=492) 3.50 M/ L 4.63-6.08 HEMOGLOBIN (BEAKER) (test ursd=545) 9.0 GM/DL 13.7-17.5 HEMATOCRIT (BEAKER) (test magd=116) 29.0 % 40.1-51.0 MEAN CORPUSCULAR VOLUME (BEAKER) (test vwtj=209) 82.9 fL 79.0-92.2 MEAN CORPUSCULAR HEMOGLOBIN (BEAKER) (test 25.7 pg 25.7-32.2 mcbq=295) MEAN CORPUSCULAR HEMOGLOBIN CONC (BEAKER) (test 31.0 GM/DL 32.3-36.5 tzih=756) RED CELL DISTRIBUTION WIDTH (BEAKER) (test 23.6 % 11.6-14.4 miot=901) PLATELET COUNT (BEAKER) (test urmg=710) 153 K/CU MM 150-450 MEAN PLATELET VOLUME (BEAKER) (test xdsu=413) 12.0 fL 9.4-12.4 NUCLEATED RED BLOOD CELLS (BEAKER) (test 0 /100 WBC 0-0 uirz=150) NEUTROPHILS RELATIVE PERCENT (BEAKER) (test 45 % ueny=070) LYMPHOCYTES RELATIVE PERCENT (BEAKER) (test 38 % uewx=443) MONOCYTES RELATIVE PERCENT (BEAKER) (test 11 % bjan=999) EOSINOPHILS RELATIVE PERCENT (BEAKER) (test 5 % qoyq=629) BASOPHILS RELATIVE PERCENT (BEAKER) (test 1 % zrfl=414) NEUTROPHILS ABSOLUTE COUNT (BEAKER) (test 2.52 K/ L 1.78-5.38 ypym=535) LYMPHOCYTES ABSOLUTE COUNT (BEAKER) (test 2.15 K/ L 1.32-3.57 uzye=469) MONOCYTES ABSOLUTE COUNT (BEAKER) (test 0.64 K/ L 0.30-0.82 yxcn=992) EOSINOPHILS ABSOLUTE COUNT (BEAKER) (test 0.28 K/ L 0.04-0.54 kotj=077) BASOPHILS ABSOLUTE COUNT (BEAKER) (test 0.03 K/ L 0.01-0.08 rdtq=874) IMMATURE GRANULOCYTES-RELATIVE PERCENT (BEAKER) 0 % 0-1 (test pbch=2992) PROTHROMBIN [id number] 06:22:00 Test Item Value Reference Range Comments PROTIME (BEAKER) (test bmnq=472) 14.4 seconds 11.9-14.2 INR (BEAKER) (test enot=058) 1.2 <=5.9 Effective 07/24/2018: PT Reference Range ChangeNew: 11.9-14.2 Previous: 11.7- 14.7RECOMMENDED COUMADIN/WARFARIN INR THERAPY RANGESSTANDARD DOSE: 2.0-3.0 Includes: PROPHYLAXIS for venous thrombosis, systemic embolization; TREATMENT for venous thrombosis and/or pulmonary embolus.HIGH RISK: Target INR is2.5-3.5 for patients wiht mechanical heart valves.POCT-GLUCOSE [id number] 00:28:00 Test Item Value Reference Range Comments POC-GLUCOSE METER (BEAKER) 97 mg/dL 70-110 : TESTED AT [address] (test xwoe=0955) [facility], [address]: Collection Development Librarian/Cloth Shrinker [id number] for MARÍA DERAS POCT-GLUCOSE [id number] 15:14:00 Test Item Value Reference Range Comments POC-GLUCOSE METER (BEAKER) 97 mg/dL 70-110 : TESTED AT [facility] [address] (test qorl=7163) [facility], [address]: Collection Development Librarian/Cloth Shrinker XD=[id number] for JAVIER CORTEZ RAD, CHEST, 1 VIEW, NON [id number] 09:36:00Reason for exam:->eval pleural effusionsShould this be performed at the bedside?->YesFINAL REPORT RAD, CHEST, 1 VIEW, NON DEPT INDICATION: eval pleural effusions COMPARISON: Prior day's exam FINDINGS: Portable frontal view of the chest. IMPRESSION: Support Lines: Visible portions of the feeding tube are intact. Lungs and pleura: Stable large right and small left pleural effusion superimposed over interstitial congestion. No pneumothorax.Heart and mediastinum : Stable contours. Stable surgical changes.Additional findings: None. Signed: JR Jara Robert MDReport Verified Date/Time: 04/10/2019 09:36:48 Reading Location: [facility] Radiology ReadingRoom BASIC METABOLIC [id number] 06:20:00 Test Item Value Reference Range Comments SODIUM (BEAKER) (test 140 meq/L 136-145 mwam=371) POTASSIUM (BEAKER) (test 3.5 meq/L 3.5-5.1 lalg=109) CHLORIDE (BEAKER) (test 106 meq/L 98-107 kqtd=831) CO2 (BEAKER) (test 31 meq/L 22-29 djqe=945) BLOOD UREA NITROGEN 25 mg/dL 7-21 (BEAKER) (test cppq=762) CREATININE (BEAKER) (test 0.80 mg/dL 0.57-1.25 jodn=504) GLUCOSE RANDOM (BEAKER) 113 mg/dL 70-105 (test rxpv=378) CALCIUM (BEAKER) (test 7.2 mg/dL 8.4-10.2 etld=930) EGFR (BEAKER) (test 97 mL/min/1.73 sq m ESTIMATED GFR IS NOT duvv=7757) ACCURATE CREATININE CLEARANCE IN PREDICTING GLOMERULAR FILTRATION RATE. ESTIMATED GFR IS NOT APPLICABLE FOR DIALYSIS PATIENTS. Collection Development Librarian ID - [id number] 06:06:00 Test Item Value Reference Range Comments PHOSPHORUS (BEAKER) (test fvhr=154) 3.7 mg/dL 2.3-4.7 Collection Development Librarian ID - [id number] 06:06:00 Test Item Value Reference Range Comments MAGNESIUM (BEAKER) (test xyqn=011) 2.0 mg/dL 1.6-2.6 Collection Development Librarian ID - LACBC W/PLT COUNT & AUTO [id number] 05:54:00 Test Item Value Reference Range Comments WHITE BLOOD CELL COUNT (BEAKER) (test eddk=005) 5.8 K/ L 3.5-10.5 RED BLOOD CELL COUNT (BEAKER) (test dnbv=858) 3.55 M/ L 4.63-6.08 HEMOGLOBIN (BEAKER) (test lbxy=241) 9.1 GM/DL 13.7-17.5 HEMATOCRIT (BEAKER) (test dubk=643) 29.4 % 40.1-51.0 MEAN CORPUSCULAR VOLUME (BEAKER) (test psyc=916) 82.8 fL 79.0-92.2 MEAN CORPUSCULAR HEMOGLOBIN (BEAKER) (test 25.6 pg 25.7-32.2 kxvj=401) MEAN CORPUSCULAR HEMOGLOBIN CONC (BEAKER) (test 31.0 GM/DL 32.3-36.5 zutz=194) RED CELL DISTRIBUTION WIDTH (BEAKER) (test 23.8 % 11.6-14.4 mdzi=050) PLATELET COUNT (BEAKER) (test kwpw=578) 161 K/CU MM 150-450 MEAN PLATELET VOLUME (BEAKER) (test nidk=304) 11.8 fL 9.4-12.4 NUCLEATED RED BLOOD CELLS (BEAKER) (test 0 /100 WBC 0-0 pedq=418) NEUTROPHILS RELATIVE PERCENT (BEAKER) (test 48 % afil=733) LYMPHOCYTES RELATIVE PERCENT (BEAKER) (test 35 % sfzm=778) MONOCYTES RELATIVE PERCENT (BEAKER) (test 12 % endh=029) EOSINOPHILS RELATIVE PERCENT (BEAKER) (test 4 % cebq=486) BASOPHILS RELATIVE PERCENT (BEAKER) (test 0 % bdwj=164) NEUTROPHILS ABSOLUTE COUNT (BEAKER) (test 2.79 K/ L 1.78-5.38 gtwk=180) LYMPHOCYTES ABSOLUTE COUNT (BEAKER) (test 2.02 K/ L 1.32-3.57 ryrh=563) MONOCYTES ABSOLUTE COUNT (BEAKER) (test 0.70 K/ L 0.30-0.82 qcjn=566) EOSINOPHILS ABSOLUTE COUNT (BEAKER) (test 0.24 K/ L 0.04-0.54 pqkb=470) BASOPHILS ABSOLUTE COUNT (BEAKER) (test 0.02 K/ L 0.01-0.08 cbni=200) IMMATURE GRANULOCYTES-RELATIVE PERCENT (BEAKER) 0 % 0-1 (test qfjg=3565) POCT-GLUCOSE [id number] 00:49:00 Test Item Value Reference Range Comments POC-GLUCOSE METER (BEAKER) 113 mg/dL 70-110 : TESTED AT [address] (test rwtn=7173) [facility], [address]: Collection Development Librarian/Cloth Shrinker [id number] for ALBERTINA COLLADO POCT-GLUCOSE [id number] 17:50:00 Test Item Value Reference Range Comments POC-GLUCOSE METER (BEAKER) 86 mg/dL 70-110 : TESTED AT [address] (test djow=5918) [facility], [address]: Collection Development Librarian/Cloth Shrinker [id number] for MARQUIS LIZ ESOPH, SWALLOW FUNCTION, WITH CINE OR [id number] 16:22:00Reason for exam:->dysphagia, on TFsFINAL REPORT Modified barium swallow exam with speech pathology service CLINICAL HISTORY: dysphagia, on TFs IMPRESSION: Please see the speech pathology service report for details. Barium contrast of multiple consistencies is given to the patient to swallow. Fluoroscopic observation is performed during swallowing. Small aspiration with residual within the proximal trachea on multiple consistencies. Fluoro time: 0.5 minutes Number of images: 8 Signed: Nova Salazarort Verified Date/ Time: 04/09/2019 16:22:18 Reading Location: [facility] Reading Room POCT-GLUCOSE [id number] 12:00:00 Test Item Value Reference Range Comments POC-GLUCOSE METER (BEAKER) 97 mg/dL 70-110 : TESTED AT [facility] [address] (test lslz=3896) [facility], [address]: Collection Development Librarian/Cloth Shrinker [id number] for PRISCILLA GARCIA POCT-GLUCOSE [id number] 09:53:00 Test Item Value Reference Range Comments POC-GLUCOSE METER (BEAKER) 102 mg/dL 70-110 : TESTED AT [address] (test niqs=4750) [facility], [address]: Collection Development Librarian/Cloth Shrinker [id number] for PRISCILLA GARCIA RAD, CHEST, 1 VIEW, NON [id number] 07:20:00Reason for exam:->eval pleural effusionsShould this be performed at the bedside?->YesFINAL REPORT RAD, CHEST, 1 VIEW, NON DEPT INDICATION: eval pleural effusions COMPARISON: Prior day's exam FINDINGS: Portable frontal view of the chest. IMPRESSION: Support Lines: Feeding tube is intact where visible. Right pigtail catheter demonstrates unchanged position.Lungs and pleura: Persistent coarsened interstitial markings. Trace left and moderate to large right effusions. No pneumothorax.Heart and mediastinum: Stable contours. Stable surgical changes.Additional findings: None. Signed: JR Jara Robert MDReport Verified Date/Time: 04/09/2019 07:20:55 Reading Location: [facility] Radiology Reading Room Electronically signed by: CHRISTIE Piña 04/09/2019 07:20 [id number] 06:48:00 Test Item Value Reference Range Comments PHOSPHORUS (BEAKER) (test yvtb=150) 2.8 mg/dL 2.3-4.7 Collection Development Librarian ID - [id number] 06:48:00 Test Item Value Reference Range Comments MAGNESIUM (BEAKER) (test ffff=257) 1.8 mg/dL 1.6-2.6 Collection Development Librarian ID - GALAPBASIC METABOLIC [id number] 06:48:00 Test Item Value Reference Range Comments SODIUM (BEAKER) (test 141 meq/L 136-145 cpwn=146) POTASSIUM (BEAKER) (test 3.3 meq/L 3.5-5.1 ttzp=321) CHLORIDE (BEAKER) (test 106 meq/L 98-107 yyua=795) CO2 (BEAKER) (test 31 meq/L 22-29 irzz=727) BLOOD UREA NITROGEN 27 mg/dL 7-21 (BEAKER) (test hhki=686) CREATININE (BEAKER) (test 0.73 mg/dL 0.57-1.25 ljkk=777) GLUCOSE RANDOM (BEAKER) 85 mg/dL 70-105 (test ffkm=591) CALCIUM (BEAKER) (test 7.2 mg/dL 8.4-10.2 zdhp=241) EGFR (BEAKER) (test 108 mL/min/1.73 sq m ESTIMATED GFR IS NOT bqzo=6771) ACCURATE CREATININE CLEARANCE IN PREDICTING GLOMERULAR FILTRATION RATE. ESTIMATED GFR IS NOT APPLICABLE FOR DIALYSIS PATIENTS. Collection Development Librarian ID - GALAPCBC W/PLT COUNT & AUTO [id number] 06:39:00 Test Item Value Reference Range Comments WHITE BLOOD CELL COUNT (BEAKER) (test enaf=824) 7.0 K/ L 3.5-10.5 RED BLOOD CELL COUNT (BEAKER) (test jski=142) 3.87 M/ L 4.63-6.08 HEMOGLOBIN (BEAKER) (test ugnv=259) 9.6 GM/DL 13.7-17.5 HEMATOCRIT (BEAKER) (test ffil=837) 32.3 % 40.1-51.0 MEAN CORPUSCULAR VOLUME (BEAKER) (test knhu=616) 83.5 fL 79.0-92.2 MEAN CORPUSCULAR HEMOGLOBIN (BEAKER) (test 24.8 pg 25.7-32.2 ukyx=243) MEAN CORPUSCULAR HEMOGLOBIN CONC (BEAKER) (test 29.7 GM/DL 32.3-36.5 gfjg=447) RED CELL DISTRIBUTION WIDTH (BEAKER) (test 24.4 % 11.6-14.4 cvso=443) PLATELET COUNT (BEAKER) (test uycp=621) 183 K/CU MM 150-450 MEAN PLATELET VOLUME (BEAKER) (test dqjj=391) 12.0 fL 9.4-12.4 NUCLEATED RED BLOOD CELLS (BEAKER) (test 0 /100 WBC 0-0 aydo=183) NEUTROPHILS RELATIVE PERCENT (BEAKER) (test 42 % okcp=357) LYMPHOCYTES RELATIVE PERCENT (BEAKER) (test 39 % uekn=962) MONOCYTES RELATIVE PERCENT (BEAKER) (test 13 % uigw=570) EOSINOPHILS RELATIVE PERCENT (BEAKER) (test 6 % rgfb=070) BASOPHILS RELATIVE PERCENT (BEAKER) (test 0 % xuxd=833) NEUTROPHILS ABSOLUTE COUNT (BEAKER) (test 2.91 K/ L 1.78-5.38 vgut=767) LYMPHOCYTES ABSOLUTE COUNT (BEAKER) (test 2.73 K/ L 1.32-3.57 ufqy=668) MONOCYTES ABSOLUTE COUNT (BEAKER) (test 0.88 K/ L 0.30-0.82 cjbb=574) EOSINOPHILS ABSOLUTE COUNT (BEAKER) (test 0.41 K/ L 0.04-0.54 epiz=134) BASOPHILS ABSOLUTE COUNT (BEAKER) (test 0.03 K/ L 0.01-0.08 pfnz=556) IMMATURE GRANULOCYTES-RELATIVE PERCENT (BEAKER) 0 % 0-1 (test odlw=9743) POCT-GLUCOSE [id number] 06:29:00 Test Item Value Reference Range Comments POC-GLUCOSE METER (BEAKER) 70 mg/dL 70-110 : TESTED AT [address] (test krnv=9189) [facility], [address]: Collection Development Librarian/Cloth Shrinker [id number] for SAURAV HENSON POCT-GLUCOSE [id number] 05:40:00 Test Item Value Reference Range Comments POC-GLUCOSE METER (BEAKER) 90 mg/dL 70-110 : TESTED AT [address] (test kogd=0052) [facility], [address]: Collection Development Librarian/Cloth Shrinker [id number] for AMIE GARCIA POCT-GLUCOSE [id number] 17:57:00 Test Item Value Reference Range Comments POC-GLUCOSE METER (BEAKER) 90 mg/dL 70-110 : TESTED AT [address] (test bbbh=0033) [facility], [address]: Collection Development Librarian/Cloth Shrinker [id number] for MARQUIS LIZ POCT-GLUCOSE [id number] 12:47:00 Test Item Value Reference Range Comments POC-GLUCOSE METER (BEAKER) 97 mg/dL 70-110 : TESTED AT [address] (test wgbd=3493) [facility], [address]: Collection Development Librarian/Cloth Shrinker [id number] for JAVIER CORTEZ RAD, CHEST, 1 VIEW, NON [id number] 07:33:00Reason for exam:->eval pleural effusionsShould this be performed at the bedside?->YesFINAL REPORT RAD, CHEST, 1 VIEW, NON DEPT INDICATION: eval pleural effusions COMPARISON: Prior day's exam FINDINGS: Portable frontal view of the chest. IMPRESSION: Support Lines: The feeding tube is intact where visible. Lungs and pleura: Increasing right effusion. Persistentbilateral interstitial congestion. Trace left effusion. No pneumothorax.Heart and mediastinum: Stable contours. Stable surgical changes.Additional findings: None. Signed: JR Jara Robert MDReport Verified Date/Time: 04/08/2019 07:33:22 Reading Location: [facility] Radiology Reading Room POCT-GLUCOSE [id number] 05: 33:00 Test Item Value Reference Range Comments POC-GLUCOSE METER (BEAKER) 97 mg/dL 70-110 : TESTED AT [address] (test apvv=9409) [facility], [address]: Collection Development Librarian/Cloth Shrinker [id number] for ELIAZAR GASTELUM BASIC METABOLIC [id number] 05:33:00 Test Item Value Reference Range Comments SODIUM (BEAKER) (test 145 meq/L 136-145 zovl=888) POTASSIUM (BEAKER) (test 3.5 meq/L 3.5-5.1 fcwy=930) CHLORIDE (BEAKER) (test 110 meq/L 98-107 uucq=069) CO2 (BEAKER) (test 32 meq/L 22-29 djph=027) BLOOD UREA NITROGEN 28 mg/dL 7-21 (BEAKER) (test avsd=184) CREATININE (BEAKER) (test 0.76 mg/dL 0.57-1.25 mowj=950) GLUCOSE RANDOM (BEAKER) 97 mg/dL 70-105 (test ldpl=504) CALCIUM (BEAKER) (test 7.5 mg/dL 8.4-10.2 ntui=663) EGFR (BEAKER) (test 103 mL/min/1.73 sq m ESTIMATED GFR IS NOT wull=6432) ACCURATE CREATININE CLEARANCE IN PREDICTING GLOMERULAR FILTRATION RATE. ESTIMATED GFR IS NOT APPLICABLE FOR DIALYSIS PATIENTS. Collection Development Librarian ID - [id number] 05:16:00 Test Item Value Reference Range Comments PHOSPHORUS (BEAKER) (test dzjy=244) 2.5 mg/dL 2.3-4.7 Collection Development Librarian ID - [id number] 05:16:00 Test Item Value Reference Range Comments MAGNESIUM (BEAKER) (test xrmd=904) 1.9 mg/dL 1.6-2.6 Collection Development Librarian ID - GALAPCBC W/PLT COUNT & AUTO [id number] 05:10:00 Test Item Value Reference Range Comments WHITE BLOOD CELL COUNT (BEAKER) (test crgg=158) 6.8 K/ L 3.5-10.5 RED BLOOD CELL COUNT (BEAKER) (test dydb=544) 4.00 M/ L 4.63-6.08 HEMOGLOBIN (BEAKER) (test bphy=477) 9.9 GM/DL 13.7-17.5 HEMATOCRIT (BEAKER) (test rpdx=833) 34.3 % 40.1-51.0 MEAN CORPUSCULAR VOLUME (BEAKER) (test mgok=922) 85.8 fL 79.0-92.2 MEAN CORPUSCULAR HEMOGLOBIN (BEAKER) (test 24.8 pg 25.7-32.2 fska=445) MEAN CORPUSCULAR HEMOGLOBIN CONC (BEAKER) (test 28.9 GM/DL 32.3-36.5 jfvq=022) RED CELL DISTRIBUTION WIDTH (BEAKER) (test 25.2 % 11.6-14.4 krip=005) PLATELET COUNT (BEAKER) (test hery=900) 190 K/CU MM 150-450 MEAN PLATELET VOLUME (BEAKER) (test thfw=028) 11.8 fL 9.4-12.4 NUCLEATED RED BLOOD CELLS (BEAKER) (test 0 /100 WBC 0-0 ylwb=738) NEUTROPHILS RELATIVE PERCENT (BEAKER) (test 44 % iuas=465) LYMPHOCYTES RELATIVE PERCENT (BEAKER) (test 36 % ftva=196) MONOCYTES RELATIVE PERCENT (BEAKER) (test 13 % chgp=396) EOSINOPHILS RELATIVE PERCENT (BEAKER) (test 7 % vfdg=897) BASOPHILS RELATIVE PERCENT (BEAKER) (test 0 % qbgd=917) NEUTROPHILS ABSOLUTE COUNT (BEAKER) (test 2.97 K/ L 1.78-5.38 mopz=105) LYMPHOCYTES ABSOLUTE COUNT (BEAKER) (test 2.40 K/ L 1.32-3.57 swgs=117) MONOCYTES ABSOLUTE COUNT (BEAKER) (test 0.87 K/ L 0.30-0.82 lipk=567) EOSINOPHILS ABSOLUTE COUNT (BEAKER) (test 0.48 K/ L 0.04-0.54 xbme=268) BASOPHILS ABSOLUTE COUNT (BEAKER) (test 0.02 K/ L 0.01-0.08 kfei=861) IMMATURE GRANULOCYTES-RELATIVE PERCENT (BEAKER) 0 % 0-1 (test elll=4092) POCT-GLUCOSE [id number] 00:34:00 Test Item Value Reference Range Comments POC-GLUCOSE METER (BEAKER) 111 mg/dL 70-110 : TESTED AT [address] (test sduj=5702) [facility], [address]: Collection Development Librarian/Cloth Shrinker [id number] for ELIAZAR GASTELUM BASIC METABOLIC [id number] 18:38:00 Test Item Value Reference Range Comments SODIUM (BEAKER) (test 150 meq/L 136-145 szyc=929) POTASSIUM (BEAKER) (test 3.7 meq/L 3.5-5.1 Specimen slightly xtru=642) hemolyzed CHLORIDE (BEAKER) (test 113 meq/L 98-107 pgeq=324) CO2 (BEAKER) (test 34 meq/L 22-29 fjbv=438) BLOOD UREA NITROGEN 30 mg/dL 7-21 (BEAKER) (test setc=507) CREATININE (BEAKER) (test 0.81 mg/dL 0.57-1.25 Specimen slightly grxl=745) hemolyzed GLUCOSE RANDOM (BEAKER) 100 mg/dL 70-105 (test fweg=387) CALCIUM (BEAKER) (test 7.8 mg/dL 8.4-10.2 dpfz=017) EGFR (BEAKER) (test 96 mL/min/1.73 sq m ESTIMATED GFR IS NOT qxep=5527) ACCURATE CREATININE CLEARANCE IN PREDICTING GLOMERULAR FILTRATION RATE. ESTIMATED GFR IS NOT APPLICABLE FOR DIALYSIS PATIENTS. Collection Development Librarian ID - BSPOCT-GLUCOSE [id number] 17:48:00 Test Item Value Reference Range Comments POC-GLUCOSE METER (BEAKER) 113 mg/dL 70-110 : TESTED AT [facility] [address] (test benu=5467) [facility], [address]: Collection Development Librarian/Cloth Shrinker YN=[id number] for MARQUIS LIZ FUNGUS CULTURE + [id number] 17:33:00 Test Item Value Reference Range Comments CULTURE (BEAKER) (test Same organism has been isolated eyvh=0905) from cultures(s) of the same body site and collection date. Repeat identification and susceptibility testing performed only after consultation with the clinical microbiology laboratory. FUNGUS SMEAR (BEAKER) No fungi seen (test kuyt=5358) Refer to previous culture of Ana albicansPOCT-GLUCOSE [id number] 11:47: 00 Test Item Value Reference Range Comments POC-GLUCOSE METER (BEAKER) 102 mg/dL 70-110 : TESTED AT [address] (test plff=8909) [facility], [address]: Collection Development Librarian/Cloth Shrinker [id number] for MARQUIS LIZ RAD, CHEST, 1 VIEW, NON [id number] 11:26:00Reason for exam:->S/p L chest tube removalFINAL REPORT RAD, CHEST, 1 VIEW, NON DEPT INDICATION: S/p L chest tube removal COMPARISON: One hour prior FINDINGS: Portable frontal view of the chest. IMPRESSION: Support Lines: S drainage tube is been removed. Remaining support hardware is stable. Left PICC again noted to terminate in the axillary region.Lungs and pleura: Unchanged airspace and pleural opacities. No pneumothorax.Heart and mediastinum: Stable contours. Stable surgical changes.Additional findings: None. Signed: JR Jara Robert MDReport Verified Date/Time: 04/07/2019 11:26:55 Reading Location: [facility] Radiology Reading Room RAD, CHEST, 1 VIEW, NON [id number] 10:15: 00Reason for exam:->eval pleural effusionsShould this be performed at the bedside?->YesFINAL REPORT RAD, CHEST, 1 VIEW, NON DEPT INDICATION: eval pleural effusions COMPARISON: Prior day's exam FINDINGS: Portable frontal view of the chest. IMPRESSION: Support Lines: Stable small caliber pigtail catheter is at the bases bilaterally. Lungs and pleura: Slightly decreased right effusion. No visible pneumothorax on either side. Scattered subsegmental atelectasis bilaterally.Heart and mediastinum: Stable contours. Stable surgical changes.Additional findings: None. Signed: JR Marek, Christie HEARNeport Verified Date/Time: 04/07/2019 10:15:23 Reading Location: [facility] Radiology Reading Room 10:15 [id number] 08:15:00 Test Item Value Reference Range Comments PHOSPHORUS (BEAKER) (test jwzs=172) 3.3 mg/dL 2.3-4.7 Collection Development Librarian ID - PHILIP [id number] 08:15:00 Test Item Value Reference Range Comments MAGNESIUM (BEAKER) (test ytic=435) 2.0 mg/dL 1.6-2.6 Collection Development Librarian ID - PHILIP CBASIC METABOLIC [id number] 08:15:00 Test Item Value Reference Range Comments SODIUM (BEAKER) (test 151 meq/L 136-145 fdna=897) POTASSIUM (BEAKER) (test 4.1 meq/L 3.5-5.1 nkai=066) CHLORIDE (BEAKER) (test 114 meq/L 98-107 msub=462) CO2 (BEAKER) (test 33 meq/L 22-29 wjiv=796) BLOOD UREA NITROGEN 31 mg/dL 7-21 (BEAKER) (test mtyl=334) CREATININE (BEAKER) (test 0.80 mg/dL 0.57-1.25 uydf=996) GLUCOSE RANDOM (BEAKER) 77 mg/dL 70-105 (test rihm=116) CALCIUM (BEAKER) (test 8.1 mg/dL 8.4-10.2 wijt=939) EGFR (BEAKER) (test 97 mL/min/1.73 sq m ESTIMATED GFR IS NOT vrms=8208) ACCURATE CREATININE CLEARANCE IN PREDICTING GLOMERULAR FILTRATION RATE. ESTIMATED GFR IS NOT APPLICABLE FOR DIALYSIS PATIENTS. Collection Development Librarian ID - PHILIP CCBC W/PLT COUNT & AUTO [id number] 07:40:00 Test Item Value Reference Range Comments WHITE BLOOD CELL COUNT (BEAKER) (test akso=977) 6.7 K/ L 3.5-10.5 RED BLOOD CELL COUNT (BEAKER) (test seel=151) 4.01 M/ L 4.63-6.08 HEMOGLOBIN (BEAKER) (test dgtj=532) 10.1 GM/DL 13.7-17.5 HEMATOCRIT (BEAKER) (test uwzd=675) 35.0 % 40.1-51.0 MEAN CORPUSCULAR VOLUME (BEAKER) (test jyvk=971) 87.3 fL 79.0-92.2 MEAN CORPUSCULAR HEMOGLOBIN (BEAKER) (test 25.2 pg 25.7-32.2 fmez=709) MEAN CORPUSCULAR HEMOGLOBIN CONC (BEAKER) (test 28.9 GM/DL 32.3-36.5 mxdq=402) RED CELL DISTRIBUTION WIDTH (BEAKER) (test 26.0 % 11.6-14.4 ahmp=966) PLATELET COUNT (BEAKER) (test pklg=697) 209 K/CU MM 150-450 MEAN PLATELET VOLUME (BEAKER) (test lgpz=685) 12.0 fL 9.4-12.4 NUCLEATED RED BLOOD CELLS (BEAKER) (test 0 /100 WBC 0-0 zwte=735) NEUTROPHILS RELATIVE PERCENT (BEAKER) (test 45 % dwfs=499) LYMPHOCYTES RELATIVE PERCENT (BEAKER) (test 31 % wrug=723) MONOCYTES RELATIVE PERCENT (BEAKER) (test 15 % tqjf=555) EOSINOPHILS RELATIVE PERCENT (BEAKER) (test 8 % qnpk=626) BASOPHILS RELATIVE PERCENT (BEAKER) (test 1 % sbwg=471) NEUTROPHILS ABSOLUTE COUNT (BEAKER) (test 3.00 K/ L 1.78-5.38 zfmg=367) LYMPHOCYTES ABSOLUTE COUNT (BEAKER) (test 2.08 K/ L 1.32-3.57 lfpa=273) MONOCYTES ABSOLUTE COUNT (BEAKER) (test 0.98 K/ L 0.30-0.82 pisj=685) EOSINOPHILS ABSOLUTE COUNT (BEAKER) (test 0.55 K/ L 0.04-0.54 efza=169) BASOPHILS ABSOLUTE COUNT (BEAKER) (test 0.03 K/ L 0.01-0.08 qphr=815) IMMATURE GRANULOCYTES-RELATIVE PERCENT (BEAKER) 0 % 0-1 (test lzgh=1868) POCT-GLUCOSE [id number] 06:50:00 Test Item Value Reference Range Comments POC-GLUCOSE METER (BEAKER) 92 mg/dL 70-110 : TESTED AT [address] (test pcit=9723) [facility], [address]: Collection Development Librarian/Cloth Shrinker [id number] for ELIAZAR GASTELUM POCT-GLUCOSE [id number] 00:17:00 Test Item Value Reference Range Comments POC-GLUCOSE METER (BEAKER) 109 mg/dL 70-110 : TESTED AT [address] (test bybb=3584) [facility], [address]: Collection Development Librarian/Cloth Shrinker VZ=[id number] for ELIAZAR GASTELUM POCT-GLUCOSE [id number] 18:05:00 Test Item Value Reference Range Comments POC-GLUCOSE METER (BEAKER) 100 mg/dL 70-110 : TESTED AT [address] (test fpso=2025) [facility], [address]: Collection Development Librarian/Cloth Shrinker [id number] for RICARDO LARSON POCT-GLUCOSE [id number] 18:05:00 Test Item Value Reference Range Comments POC-GLUCOSE METER (BEAKER) 90 mg/dL 70-110 : TESTED AT [address] (test lsuq=7802) [facility], [address]: Collection Development Librarian/Cloth Shrinker [id number] for EVANS ELLINGTON BASIC METABOLIC [id number] 17:33:00 Test Item Value Reference Range Comments SODIUM (BEAKER) (test 151 meq/L 136-145 jsvg=060) POTASSIUM (BEAKER) (test 3.3 meq/L 3.5-5.1 rmnc=455) CHLORIDE (BEAKER) (test 112 meq/L 98-107 vyde=954) CO2 (BEAKER) (test 36 meq/L 22-29 yvza=135) BLOOD UREA NITROGEN 30 mg/dL 7-21 (BEAKER) (test ditd=745) CREATININE (BEAKER) (test 0.85 mg/dL 0.57-1.25 fibb=997) GLUCOSE RANDOM (BEAKER) 102 mg/dL 70-105 (test mafj=908) CALCIUM (BEAKER) (test 8.0 mg/dL 8.4-10.2 szsd=088) EGFR (BEAKER) (test 91 mL/min/1.73 sq m ESTIMATED GFR IS NOT ihas=3384) ACCURATE CREATININE CLEARANCE IN PREDICTING GLOMERULAR FILTRATION RATE. ESTIMATED GFR IS NOT APPLICABLE FOR DIALYSIS PATIENTS. Collection Development Librarian ID - ALMA WRAD, CHEST, 1 VIEW, NON [id number] 08:21:00Reason for exam:->eval pleural effusionsShould this be performed at the bedside?-> YesFINAL REPORT RAD, CHEST, 1 VIEW, NON DEPT CLINICAL INDICATION: eval pleural effusions TECHNIQUE: AP view of the chest COMPARISON: Radiograph 04/05/2019 FINDINGS: Support devices are unchanged. Persistent small to moderate right pleural effusion and trace left pleural effusion, notsignificantly changed. No new focal consolidation or pneumothorax. Cardiomediastinal silhouette, ana lilia, and pulmonary vasculature are unchanged. IMPRESSION:No significant interval change. Signed: Simran Rajaneport Verified Date/Time: 04/06/2019 08:21:47 [id number] 07:38:00 Test Item Value Reference Range Comments PHOSPHORUS (BEAKER) (test xsps=634) 3.7 mg/dL 2.3-4.7 Collection Development Librarian ID - SONIA [id number] 07:38:00 Test Item Value Reference Range Comments MAGNESIUM (BEAKER) (test acqh=981) 2.1 mg/dL 1.6-2.6 Collection Development Librarian ID - SONIA FBASIC METABOLIC [id number] 07:38:00 Test Item Value Reference Range Comments SODIUM (BEAKER) (test 150 meq/L 136-145 bwaj=340) POTASSIUM (BEAKER) (test 3.6 meq/L 3.5-5.1 bqbl=292) CHLORIDE (BEAKER) (test 114 meq/L 98-107 kgry=284) CO2 (BEAKER) (test 32 meq/L 22-29 quhz=646) BLOOD UREA NITROGEN 31 mg/dL 7-21 (BEAKER) (test cehn=373) CREATININE (BEAKER) (test 0.88 mg/dL 0.57-1.25 ixca=776) GLUCOSE RANDOM (BEAKER) 88 mg/dL 70-105 (test uoqc=187) CALCIUM (BEAKER) (test 8.1 mg/dL 8.4-10.2 yoww=874) EGFR (BEAKER) (test 87 mL/min/1.73 sq m ESTIMATED GFR IS NOT qztu=6529) ACCURATE CREATININE CLEARANCE IN PREDICTING GLOMERULAR FILTRATION RATE. ESTIMATED GFR IS NOT APPLICABLE FOR DIALYSIS PATIENTS. Collection Development Librarian ID - SONIA FCBC W/PLT COUNT & AUTO [id number] 07:35: 00 Test Item Value Reference Range Comments WHITE BLOOD CELL COUNT (BEAKER) (test agco=516) 7.0 K/ L 3.5-10.5 RED BLOOD CELL COUNT (BEAKER) (test vdff=630) 3.98 M/ L 4.63-6.08 HEMOGLOBIN (BEAKER) (test mywe=116) 9.9 GM/DL 13.7-17.5 HEMATOCRIT (BEAKER) (test cxzt=757) 34.3 % 40.1-51.0 MEAN CORPUSCULAR VOLUME (BEAKER) (test ibin=929) 86.2 fL 79.0-92.2 MEAN CORPUSCULAR HEMOGLOBIN (BEAKER) (test 24.9 pg 25.7-32.2 gkie=896) MEAN CORPUSCULAR HEMOGLOBIN CONC (BEAKER) (test 28.9 GM/DL 32.3-36.5 mlni=846) RED CELL DISTRIBUTION WIDTH (BEAKER) (test 26.5 % 11.6-14.4 ohkb=505) PLATELET COUNT (BEAKER) (test jszn=152) 212 K/CU MM 150-450 MEAN PLATELET VOLUME (BEAKER) (test nqey=841) 11.4 fL 9.4-12.4 NUCLEATED RED BLOOD CELLS (BEAKER) (test 0 /100 WBC 0-0 ovrw=540) NEUTROPHILS RELATIVE PERCENT (BEAKER) (test 49 % htxc=763) LYMPHOCYTES RELATIVE PERCENT (BEAKER) (test 31 % msfe=951) MONOCYTES RELATIVE PERCENT (BEAKER) (test 12 % yuoq=068) EOSINOPHILS RELATIVE PERCENT (BEAKER) (test 8 % rpkb=786) BASOPHILS RELATIVE PERCENT (BEAKER) (test 0 % lhft=646) NEUTROPHILS ABSOLUTE COUNT (BEAKER) (test 3.41 K/ L 1.78-5.38 jgro=089) LYMPHOCYTES ABSOLUTE COUNT (BEAKER) (test 2.14 K/ L 1.32-3.57 teco=930) MONOCYTES ABSOLUTE COUNT (BEAKER) (test 0.86 K/ L 0.30-0.82 luai=486) EOSINOPHILS ABSOLUTE COUNT (BEAKER) (test 0.53 K/ L 0.04-0.54 yfeh=999) BASOPHILS ABSOLUTE COUNT (BEAKER) (test 0.02 K/ L 0.01-0.08 hlfk=893) IMMATURE GRANULOCYTES-RELATIVE PERCENT (BEAKER) 0 % 0-1 (test tbyj=7289) POCT-GLUCOSE [id number] 05:27:00 Test Item Value Reference Range Comments POC-GLUCOSE METER (BEAKER) 89 mg/dL 70-110 : TESTED AT [facility] [address] [facility] (test ghwz=1270) [facility], [address]: Collection Development Librarian/Cloth Shrinker GJ=[id number] for CANDIOD VILLATORO BASIC METABOLIC [id number] 17:09:00 Test Item Value Reference Range Comments SODIUM (BEAKER) (test 152 meq/L 136-145 erum=073) POTASSIUM (BEAKER) (test 3.5 meq/L 3.5-5.1 mkzg=592) CHLORIDE (BEAKER) (test 114 meq/L 98-107 vixd=937) CO2 (BEAKER) (test 34 meq/L 22-29 jhcq=419) BLOOD UREA NITROGEN 32 mg/dL 7-21 (BEAKER) (test ezce=061) CREATININE (BEAKER) (test 0.79 mg/dL 0.57-1.25 nqlm=028) GLUCOSE RANDOM (BEAKER) 85 mg/dL 70-105 (test mpll=056) CALCIUM (BEAKER) (test 8.1 mg/dL 8.4-10.2 rrcz=439) EGFR (BEAKER) (test 99 mL/min/1.73 sq m ESTIMATED GFR IS NOT vzjc=9167) ACCURATE CREATININE CLEARANCE IN PREDICTING GLOMERULAR FILTRATION RATE. ESTIMATED GFR IS NOT APPLICABLE FOR DIALYSIS PATIENTS. Collection Development Librarian ID - ELISSA MPOCT-GLUCOSE [id number] 11:34:00 Test Item Value Reference Range Comments POC-GLUCOSE METER (BEAKER) 104 mg/dL 70-110 : TESTED AT [facility] [address] (test seur=5220) [facility], [address]: Collection Development Librarian/Cloth Shrinker [id number] for JIGNA PENN BASIC METABOLIC [id number] 05:51:00 Test Item Value Reference Range Comments SODIUM (BEAKER) (test 150 meq/L 136-145 chbd=240) POTASSIUM (BEAKER) (test 3.5 meq/L 3.5-5.1 zblr=888) CHLORIDE (BEAKER) (test 115 meq/L 98-107 yasy=863) CO2 (BEAKER) (test 31 meq/L 22-29 mlgt=932) BLOOD UREA NITROGEN 35 mg/dL 7-21 (BEAKER) (test dfpk=325) CREATININE (BEAKER) (test 0.78 mg/dL 0.57-1.25 rrtr=387) GLUCOSE RANDOM (BEAKER) 86 mg/dL 70-105 (test tdut=375) CALCIUM (BEAKER) (test 7.9 mg/dL 8.4-10.2 idal=805) EGFR (BEAKER) (test 100 mL/min/1.73 sq m ESTIMATED GFR IS NOT iiax=8645) ACCURATE CREATININE CLEARANCE IN PREDICTING GLOMERULAR FILTRATION RATE. ESTIMATED GFR IS NOT APPLICABLE FOR DIALYSIS PATIENTS. Collection Development Librarian ID - ELISSA [id number] 05:43:00 Test Item Value Reference Range Comments PHOSPHORUS (BEAKER) (test vive=986) 3.5 mg/dL 2.3-4.7 Collection Development Librarian ID - ELISSA [id number] 05:43:00 Test Item Value Reference Range Comments MAGNESIUM (BEAKER) (test ntjk=752) 1.9 mg/dL 1.6-2.6 Collection Development Librarian ID - ELISSA MCBC W/PLT COUNT & AUTO [id number] 05:28:00 Test Item Value Reference Range Comments WHITE BLOOD CELL COUNT (BEAKER) (test rywm=974) 7.7 K/ L 3.5-10.5 RED BLOOD CELL COUNT (BEAKER) (test lynu=407) 3.54 M/ L 4.63-6.08 HEMOGLOBIN (BEAKER) (test nepc=652) 9.1 GM/DL 13.7-17.5 HEMATOCRIT (BEAKER) (test smrs=720) 29.8 % 40.1-51.0 MEAN CORPUSCULAR VOLUME (BEAKER) (test emyq=011) 84.2 fL 79.0-92.2 MEAN CORPUSCULAR HEMOGLOBIN (BEAKER) (test 25.7 pg 25.7-32.2 mept=623) MEAN CORPUSCULAR HEMOGLOBIN CONC (BEAKER) (test 30.5 GM/DL 32.3-36.5 cbrf=876) RED CELL DISTRIBUTION WIDTH (BEAKER) (test 26.5 % 11.6-14.4 sdwq=276) PLATELET COUNT (BEAKER) (test kxlf=621) 196 K/CU MM 150-450 MEAN PLATELET VOLUME (BEAKER) (test xkbz=894) 11.5 fL 9.4-12.4 NUCLEATED RED BLOOD CELLS (BEAKER) (test 0 /100 WBC 0-0 grxt=494) NEUTROPHILS RELATIVE PERCENT (BEAKER) (test 58 % idaq=319) LYMPHOCYTES RELATIVE PERCENT (BEAKER) (test 22 % yukp=285) MONOCYTES RELATIVE PERCENT (BEAKER) (test 12 % teny=472) EOSINOPHILS RELATIVE PERCENT (BEAKER) (test 7 % seaq=597) BASOPHILS RELATIVE PERCENT (BEAKER) (test 0 % aiwj=301) NEUTROPHILS ABSOLUTE COUNT (BEAKER) (test 4.49 K/ L 1.78-5.38 cgyc=134) LYMPHOCYTES ABSOLUTE COUNT (BEAKER) (test 1.71 K/ L 1.32-3.57 cwpc=555) MONOCYTES ABSOLUTE COUNT (BEAKER) (test 0.93 K/ L 0.30-0.82 ixeh=081) EOSINOPHILS ABSOLUTE COUNT (BEAKER) (test 0.53 K/ L 0.04-0.54 wowc=815) BASOPHILS ABSOLUTE COUNT (BEAKER) (test 0.02 K/ L 0.01-0.08 ugpf=208) IMMATURE GRANULOCYTES-RELATIVE PERCENT (BEAKER) 0 % 0-1 (test lyjw=8647) RAD, CHEST, 1 VIEW, NON [id number] 04:46:00Reason for exam:->eval pleural effusionsShould this be performed at the bedside?->YesFINAL REPORT RAD, CHEST, 1 VIEW, NON DEPT INDICATION: eval pleural effusions COMPARISON: April 04, 2019 FINDINGS: Portable frontal view of the chest. IMPRESSION: Support Lines: Enteric tube tip overlies the distal duodenum. Bilateral pigtail chest tubes are similar in appearance. Stable left axillary catheter.Lungs and pleura: Small right pleural effusion which appears loculated is stable. Suspected small left pleural effusion is unchanged. Stable interstitial opacities.Heart and mediastinum: Stable contours. Additional findings: None. Signed: Rashad Stiles MDReport Verified Date/Time: 2019 04:46:52 Electronically signed by: RASHAD STILES MD on 2019 04:46 AMPOCT-GLUCOSE [id number] 23:55:00 Test Item Value Reference Range Comments POC-GLUCOSE METER (BEAKER) 103 mg/dL 70-110 : TESTED AT [address] (test nepe=3242) [place] [id number]: Collection Development Librarian/Cloth Shrinker [id number] for ANN BOLDENTALISHA FUNGUS CULTURE + [id number] 18:09:00 Test Item Value Reference Range Comments CULTURE (BEAKER) (test pdiv=4914) 2+ Ana albicans FUNGUS SMEAR (BEAKER) (test No fungi seen hnon=9507) RAD, ABDOMEN/KUB, 1 VIEW [id number] 18:03:00Reason for exam:->TFFINAL REPORT Abdomen date 04/04/2019 Comment: Frontal view of the abdomen demonstrates a feeding tube present with tip noted in the descending duodenum. Signed: Tomasa Fosseport Verified Date/Time: 2019 18:03:16 Reading Location: [facility] [id number] Consult Reading Room POCT-GLUCOSE [id number] 17:54:00 Test Item Value Reference Range Comments POC-GLUCOSE METER (BEAKER) 82 mg/dL 70-110 : TESTED AT [address] (test hspn=3157) [facility], [facility]: Collection Development Librarian/Cloth Shrinker [id number] for ISABELA GILMORE BASIC METABOLIC [id number] 17:40:00 Test Item Value Reference Range Comments SODIUM (BEAKER) (test 149 meq/L 136-145 ixlv=604) POTASSIUM (BEAKER) (test 3.6 meq/L 3.5-5.1 Specimen slightly bnmu=556) hemolyzed CHLORIDE (BEAKER) (test 112 meq/L 98-107 ojeo=506) CO2 (BEAKER) (test 30 meq/L 22-29 jpgi=234) BLOOD UREA NITROGEN 38 mg/dL 7-21 (BEAKER) (test esgn=370) CREATININE (BEAKER) (test 0.95 mg/dL 0.57-1.25 Specimen slightly fdvr=534) hemolyzed GLUCOSE RANDOM (BEAKER) 90 mg/dL 70-105 (test ynct=378) CALCIUM (BEAKER) (test 8.2 mg/dL 8.4-10.2 kwne=646) EGFR (BEAKER) (test 80 mL/min/1.73 sq m ESTIMATED GFR IS NOT ojlm=3212) ACCURATE CREATININE CLEARANCE IN PREDICTING GLOMERULAR FILTRATION RATE. ESTIMATED GFR IS NOT APPLICABLE FOR DIALYSIS PATIENTS. Collection Development Librarian ID - [id number], ABDOMEN/KUB, 1 VIEW [id number] 15:46:00Reason for exam:-& gt;korpak placementFINAL REPORT RAD, ABDOMEN/KUB, 1 VIEW AP CLINICAL INDICATION: korpak placement COMPARISON: None TECHNIQUE: Single, frontal radiograph of the abdomen. FINDINGS: Feeding tube tip overlies the GE junction/proximal stomach. Chest tube projects over the right upper quadrant most likely within the dependent right pleural space. Correlation with clinical history may be obtained. The bowel gas pattern is nonspecific, but nonobstructive. The regional skeleton is intact. IMPRESSION: Nonspecific, nonobstructive bowel gas pattern. Signed: Alicia Garciaepcox [place] Verified Date /Time: 04/04/2019 15:46:45 Reading Location: [facility] Radiology Reading Room 03: 46 PMPOCT-GLUCOSE [id number] 12:21:00 Test Item Value Reference Range Comments POC-GLUCOSE METER (BEAKER) 94 mg/dL 70-110 : TESTED AT [facility] [address] [facility] (test xbxe=1950) [facility], [id number]: Collection Development Librarian/Cloth Shrinker [id number] for ISABELA GILMORE RAD, CHEST, 1 VIEW, NON [id number] 08:56:00Reason for exam:->eval pleural effusion, CT in placeShould this be performed at the bedside?-> YesFINAL REPORT RAD, CHEST, 1 VIEW, NON DEPT INDICATION: eval pleural effusion, CT in place COMPARISON: Prior day's exam FINDINGS: Portable frontal view of the chest. IMPRESSION:Support Lines: Stable. Lungs and pleura: Unchanged airspace and pleural opacities. No pneumothorax.Heart and mediastinum: Stable contours. Stable surgical changes.Additional findings: None. Signed: Alicia Garcia MDReport Verified Date/Time: 04/04/2019 08:56:32 Reading Location: [facility] Radiology Reading Room CBC W/PLT COUNT & AUTO [id number] 06:20:00 Test Item Value Reference Range Comments WHITE BLOOD CELL COUNT (BEAKER) (test fwtm=901) 9.9 K/ L 3.5-10.5 RED BLOOD CELL COUNT (BEAKER) (test hxem=758) 3.87 M/ L 4.63-6.08 HEMOGLOBIN (BEAKER) (test yrba=277) 9.7 GM/DL 13.7-17.5 HEMATOCRIT (BEAKER) (test weud=636) 32.8 % 40.1-51.0 MEAN CORPUSCULAR VOLUME (BEAKER) (test ddzh=431) 84.8 fL 79.0-92.2 MEAN CORPUSCULAR HEMOGLOBIN (BEAKER) (test 25.1 pg 25.7-32.2 scta=339) MEAN CORPUSCULAR HEMOGLOBIN CONC (BEAKER) (test 29.6 GM/DL 32.3-36.5 jjeo=421) RED CELL DISTRIBUTION WIDTH (BEAKER) (test 26.1 % 11.6-14.4 ikhi=615) PLATELET COUNT (BEAKER) (test slkn=265) 240 K/CU MM 150-450 MEAN PLATELET VOLUME (BEAKER) (test piyq=592) 12.4 fL 9.4-12.4 NUCLEATED RED BLOOD CELLS (BEAKER) (test 0 /100 WBC 0-0 sexd=036) NEUTROPHILS RELATIVE PERCENT (BEAKER) (test 65 % cyfb=212) LYMPHOCYTES RELATIVE PERCENT (BEAKER) (test 18 % ogix=678) MONOCYTES RELATIVE PERCENT (BEAKER) (test 10 % chty=914) EOSINOPHILS RELATIVE PERCENT (BEAKER) (test 7 % xlnr=423) BASOPHILS RELATIVE PERCENT (BEAKER) (test 0 % vocm=335) NEUTROPHILS ABSOLUTE COUNT (BEAKER) (test 6.40 K/ L 1.78-5.38 dyrd=180) LYMPHOCYTES ABSOLUTE COUNT (BEAKER) (test 1.80 K/ L 1.32-3.57 czcn=454) MONOCYTES ABSOLUTE COUNT (BEAKER) (test 1.00 K/ L 0.30-0.82 mgmv=400) EOSINOPHILS ABSOLUTE COUNT (BEAKER) (test 0.65 K/ L 0.04-0.54 mpdx=723) BASOPHILS ABSOLUTE COUNT (BEAKER) (test 0.03 K/ L 0.01-0.08 kimk=518) IMMATURE GRANULOCYTES-RELATIVE PERCENT (BEAKER) 0 % 0-1 (test qhfh=7866) POCT-GLUCOSE [id number] 05:41:00 Test Item Value Reference Range Comments POC-GLUCOSE METER (BEAKER) 107 mg/dL 70-110 : TESTED AT [facility] [address] [facility] (test abgx=4921) [facility], [address]: Collection Development Librarian/Cloth Shrinker [id number] for EDISON BENDER [id number] 05:17:00 Test Item Value Reference Range Comments PHOSPHORUS (BEAKER) (test tgkj=815) 4.2 mg/dL 2.3-4.7 Collection Development Librarian ID - ELISSA [id number] 05:17:00 Test Item Value Reference Range Comments MAGNESIUM (BEAKER) (test djmo=100) 1.9 mg/dL 1.6-2.6 Collection Development Librarian ID - ELISSA MBASIC METABOLIC [id number] 05:17:00 Test Item Value Reference Range Comments SODIUM (BEAKER) (test 148 meq/L 136-145 pcxh=423) POTASSIUM (BEAKER) (test 4.1 meq/L 3.5-5.1 sbzo=383) CHLORIDE (BEAKER) (test 115 meq/L 98-107 dwut=659) CO2 (BEAKER) (test 32 meq/L 22-29 pogs=556) BLOOD UREA NITROGEN 39 mg/dL 7-21 (BEAKER) (test iwqw=108) CREATININE (BEAKER) (test 0.90 mg/dL 0.57-1.25 ssez=498) GLUCOSE RANDOM (BEAKER) 121 mg/dL 70-105 (test hpnb=929) CALCIUM (BEAKER) (test 8.2 mg/dL 8.4-10.2 spsw=082) EGFR (BEAKER) (test 85 mL/min/1.73 sq m ESTIMATED GFR IS NOT gqrd=0517) ACCURATE CREATININE CLEARANCE IN PREDICTING GLOMERULAR FILTRATION RATE. ESTIMATED GFR IS NOT APPLICABLE FOR DIALYSIS PATIENTS. Collection Development Librarian ID - ELISSA MPOCT-GLUCOSE [id number] 00:06:00 Test Item Value Reference Range Comments POC-GLUCOSE METER (BEAKER) 109 mg/dL 70-110 : TESTED AT [address] (test zerc=9604) [facility], [address]: Collection Development Librarian/Cloth Shrinker [id number] for EDISON BENDER [id number] 20:00:00 Test Item Value Reference Range Comments MAGNESIUM (BEAKER) (test 1.9 mg/dL 1.6-2.6 Specimen slightly hemolyzed pjhe=364) Collection Development Librarian ID - BSPOCT-GLUCOSE [id number] 17:14:00 Test Item Value Reference Range Comments POC-GLUCOSE METER (BEAKER) 114 mg/dL 70-110 : TESTED AT [address] (test yfzy=2228) [facility], [address]: Collection Development Librarian/Cloth Shrinker [id number] for COLLIN GARNICA BASIC METABOLIC [id number] 16:17:00 Test Item Value Reference Range Comments SODIUM (BEAKER) (test 149 meq/L 136-145 gofd=996) POTASSIUM (BEAKER) (test 4.0 meq/L 3.5-5.1 Specimen slightly acuq=967) hemolyzed CHLORIDE (BEAKER) (test 114 meq/L 98-107 kaix=259) CO2 (BEAKER) (test 32 meq/L 22-29 rjcj=246) BLOOD UREA NITROGEN 40 mg/dL 7-21 (BEAKER) (test yqoh=599) CREATININE (BEAKER) (test 0.91 mg/dL 0.57-1.25 Specimen slightly bszu=284) hemolyzed GLUCOSE RANDOM (BEAKER) 107 mg/dL 70-105 (test ptqb=220) CALCIUM (BEAKER) (test 8.3 mg/dL 8.4-10.2 zmsg=995) EGFR (BEAKER) (test 84 mL/min/1.73 sq m ESTIMATED GFR IS NOT axef=8194) ACCURATE CREATININE CLEARANCE IN PREDICTING GLOMERULAR FILTRATION RATE. ESTIMATED GFR IS NOT APPLICABLE FOR DIALYSIS PATIENTS. Collection Development Librarian ID - BSPOCT-GLUCOSE [id number] 12:20:00 Test Item Value Reference Range Comments POC-GLUCOSE METER (BEAKER) 108 mg/dL 70-110 : TESTED AT [address] (test brge=2236) [facility], [address]: Collection Development Librarian/Cloth Shrinker [id number] for STEFANI LAWLER POCT-GLUCOSE [id number] 06:08:00 Test Item Value Reference Range Comments POC-GLUCOSE METER (BEAKER) 96 mg/dL 70-110 : TESTED AT [address] (test ftrv=2661) [facility], [address]: Collection Development Librarian/Cloth Shrinker [id number] for JACKSON BOLDEN RAD, CHEST, 1 VIEW, NON [id number] 05:49:00Reason for exam:->chest tubesShould this be performed at the bedside?->YesFINAL REPORT Chest one view. Clinical history: chest tubes Comparison: Chestradiograph 04/02/2019. Technique: A single frontal view of the chest was obtained. Findings: There has been interval removal of endotracheal tube.There is a pigtail catheter overlying the right lung base/right upper quadrant. There is a pigtail chest tube overlying the left lung base. There is a left axillary line. There is a feeding tube overlying the stomach. The cardiomediastinal contours are stable. There is pulmonary interstitial edema with small bilateral pleural effusions. There is no pneumothorax. Signed: Nakia Goldsteineport Verified Date/Time: 04/03/2019 05:49:51 [id number] 02:46:00 Test Item Value Reference Range Comments PHOSPHORUS (BEAKER) (test jeqb=151) 3.1 mg/dL 2.3-4.7 Collection Development Librarian ID - SANDRA [id number] 02:46:00 Test Item Value Reference Range Comments MAGNESIUM (BEAKER) (test qcdl=180) 1.8 mg/dL 1.6-2.6 Collection Development Librarian ANGELI FLORES WBASIC METABOLIC [id number] 02:46:00 Test Item Value Reference Range Comments SODIUM (BEAKER) (test 148 meq/L 136-145 navf=382) POTASSIUM (BEAKER) (test 3.3 meq/L 3.5-5.1 firb=237) CHLORIDE (BEAKER) (test 114 meq/L 98-107 dgqn=405) CO2 (BEAKER) (test 32 meq/L 22-29 zscy=412) BLOOD UREA NITROGEN 42 mg/dL 7-21 (BEAKER) (test qlig=047) CREATININE (BEAKER) (test 0.87 mg/dL 0.57-1.25 kssq=405) GLUCOSE RANDOM (BEAKER) 107 mg/dL 70-105 (test erjj=908) CALCIUM (BEAKER) (test 8.3 mg/dL 8.4-10.2 qhly=520) EGFR (BEAKER) (test 88 mL/min/1.73 sq m ESTIMATED GFR IS NOT shhq=3209) ACCURATE CREATININE CLEARANCE IN PREDICTING GLOMERULAR FILTRATION RATE. ESTIMATED GFR IS NOT APPLICABLE FOR DIALYSIS PATIENTS. Collection Development Librarian ANGELI FLORES WCBC W/PLT COUNT & AUTO [id number] 02:35:00 Test Item Value Reference Range Comments WHITE BLOOD CELL COUNT (BEAKER) (test rrwv=577) 10.4 K/ L 3.5-10.5 RED BLOOD CELL COUNT (BEAKER) (test gzwi=272) 3.64 M/ L 4.63-6.08 HEMOGLOBIN (BEAKER) (test ptth=641) 9.1 GM/DL 13.7-17.5 HEMATOCRIT (BEAKER) (test jmmt=756) 29.6 % 40.1-51.0 MEAN CORPUSCULAR VOLUME (BEAKER) (test xzdz=064) 81.3 fL 79.0-92.2 MEAN CORPUSCULAR HEMOGLOBIN (BEAKER) (test 25.0 pg 25.7-32.2 dxrh=870) MEAN CORPUSCULAR HEMOGLOBIN CONC (BEAKER) (test 30.7 GM/DL 32.3-36.5 ttyz=506) RED CELL DISTRIBUTION WIDTH (BEAKER) (test 25.7 % 11.6-14.4 byyk=317) PLATELET COUNT (BEAKER) (test naiu=495) 220 K/CU MM 150-450 MEAN PLATELET VOLUME (BEAKER) (test hyzj=705) 12.2 fL 9.4-12.4 NUCLEATED RED BLOOD CELLS (BEAKER) (test 0 /100 WBC 0-0 yxjs=458) NEUTROPHILS RELATIVE PERCENT (BEAKER) (test 64 % ahkn=504) LYMPHOCYTES RELATIVE PERCENT (BEAKER) (test 19 % zvru=633) MONOCYTES RELATIVE PERCENT (BEAKER) (test 10 % ljdm=554) EOSINOPHILS RELATIVE PERCENT (BEAKER) (test 6 % wsgv=756) BASOPHILS RELATIVE PERCENT (BEAKER) (test 0 % vtnl=937) NEUTROPHILS ABSOLUTE COUNT (BEAKER) (test 6.67 K/ L 1.78-5.38 jges=805) LYMPHOCYTES ABSOLUTE COUNT (BEAKER) (test 1.95 K/ L 1.32-3.57 gcth=342) MONOCYTES ABSOLUTE COUNT (BEAKER) (test 1.05 K/ L 0.30-0.82 zlgu=522) EOSINOPHILS ABSOLUTE COUNT (BEAKER) (test 0.63 K/ L 0.04-0.54 xqaz=917) BASOPHILS ABSOLUTE COUNT (BEAKER) (test 0.04 K/ L 0.01-0.08 mhga=121) IMMATURE GRANULOCYTES-RELATIVE PERCENT (BEAKER) 0 % 0-1 (test sjse=9353) POCT-GLUCOSE [id number] 00:12:00 Test Item Value Reference Range Comments POC-GLUCOSE METER (BEAKER) 87 mg/dL 70-110 : TESTED AT [address] (test deiv=4758) [facility], [address]: Collection Development Librarian/Cloth Shrinker [id number] for JACKSON BOLDEN [id number] 23:01:00 Test Item Value Reference Range Comments PARTIAL THROMBOPLASTIN TIME (BEAKER) (test 88.0 seconds 22.5-36.0 tncw=293) BASIC METABOLIC [id number] 18:04:00 Test Item Value Reference Range Comments SODIUM (BEAKER) (test 146 meq/L 136-145 wdhm=549) POTASSIUM (BEAKER) (test 4.5 meq/L 3.5-5.1 Specimen slightly lsld=312) hemolyzed CHLORIDE (BEAKER) (test 113 meq/L 98-107 yrot=609) CO2 (BEAKER) (test 26 meq/L 22-29 turg=169) BLOOD UREA NITROGEN 43 mg/dL 7-21 (BEAKER) (test pgwk=386) CREATININE (BEAKER) (test 1.01 mg/dL 0.57-1.25 Specimen slightly cjrg=770) hemolyzed GLUCOSE RANDOM (BEAKER) 93 mg/dL 70-105 (test oczc=087) CALCIUM (BEAKER) (test 8.7 mg/dL 8.4-10.2 tdck=056) EGFR (BEAKER) (test 74 mL/min/1.73 sq m ESTIMATED GFR IS NOT qcmz=0328) ACCURATE CREATININE CLEARANCE IN PREDICTING GLOMERULAR FILTRATION RATE. ESTIMATED GFR IS NOT APPLICABLE FOR DIALYSIS PATIENTS. Collection Development Librarian ID - [id number] 17:41:00 Test Item Value Reference Range Comments PARTIAL THROMBOPLASTIN TIME (BEAKER) (test 75.2 seconds 22.5-36.0 pzlf=690) POCT-GLUCOSE [id number] 17:38:00 Test Item Value Reference Range Comments POC-GLUCOSE METER (BEAKER) 100 mg/dL 70-110 : TESTED AT [address] (test nebc=7838) [facility], [address]: Collection Development Librarian/Cloth Shrinker [id number] for ELADIA GARCIA POCT-GLUCOSE [id number] 12:31:00 Test Item Value Reference Range Comments POC-GLUCOSE METER (BEAKER) 88 mg/dL 70-110 : TESTED AT [address] (test dnpm=1870) [facility], [address]: Collection Development Librarian/Cloth Shrinker [id number]=[id number] for ELADIA GARCIA RAD, CHEST, 1 VIEW, NON [id number] 09:47:00Reason for exam:->naShould this be performed at the bedside?->YesFINAL REPORT Comparison: 04/01/2019 TECHNIQUE: Single view of the chest FINDINGS: Patchy interstitial opacities and small pleural effusions, right greater than left are stable. No gross pneumothorax. Interval removal of right internal jugular central line. Remaining support lines and tubes are stable. Signed: Aiden Greer MDReport Verified Date/Time: 04/02/2019 09:47:11 Reading Location: [facility] Radiology Reading Room Electronically signed by: AIDEN GREER M.D. on 06/201909:47 [id number] 08:29:00 Test Item Value Reference Range Comments PARTIAL THROMBOPLASTIN TIME (BEAKER) (test 41.5 seconds 22.5-36.0 njjc=562) POCT-GLUCOSE [id number] 05:53:00 Test Item Value Reference Range Comments POC-GLUCOSE METER (BEAKER) 96 mg/dL 70-110 : TESTED AT [facility] [address] [facility] (test rlla=5918) [place] [id number]: Collection Development Librarian/Cloth Shrinker [id number] for ARIES BOLDENL [id number] 02:06:00 Test Item Value Reference Range Comments PARTIAL THROMBOPLASTIN TIME (BEAKER) (test 75.8 seconds 22.5-36.0 dwhn=277) [id number] 01:58:00 Test Item Value Reference Range Comments PHOSPHORUS (BEAKER) (test dwob=637) 3.3 mg/dL 2.3-4.7 Collection Development Librarian ID - [id number] 01:58:00 Test Item Value Reference Range Comments MAGNESIUM (BEAKER) (test igle=059) 1.8 mg/dL 1.6-2.6 Collection Development Librarian ID - ASBASIC METABOLIC [id number] 01:58:00 Test Item Value Reference Range Comments SODIUM (BEAKER) (test 146 meq/L 136-145 pbpn=288) POTASSIUM (BEAKER) (test 3.3 meq/L 3.5-5.1 gkdu=286) CHLORIDE (BEAKER) (test 112 meq/L 98-107 qwso=789) CO2 (BEAKER) (test 28 meq/L 22-29 uppk=428) BLOOD UREA NITROGEN 54 mg/dL 7-21 (BEAKER) (test sdry=465) CREATININE (BEAKER) (test 0.95 mg/dL 0.57-1.25 vban=756) GLUCOSE RANDOM (BEAKER) 101 mg/dL 70-105 (test kquw=038) CALCIUM (BEAKER) (test 8.2 mg/dL 8.4-10.2 oqxd=668) EGFR (BEAKER) (test 80 mL/min/1.73 sq m ESTIMATED GFR IS NOT fkxx=7278) ACCURATE CREATININE CLEARANCE IN PREDICTING GLOMERULAR FILTRATION RATE. ESTIMATED GFR IS NOT APPLICABLE FOR DIALYSIS PATIENTS. Collection Development Librarian ID - ASBLOOD GAS, [id number] 01:35:00 Test Item Value Reference Range Comments PH ARTERIAL (BEAKER) (test pulf=512) 7.56 7.35-7.45 PCO2 ARTERIAL (BEAKER) (test snsn=411) 35 mmHg 35-45 PO2 ARTERIAL (BEAKER) (test yshg=239) 90 mmHg 80-90 O2 SATURATION ARTERIAL (BEAKER) (test eywp=700) 97.9 % 96.0-97.0 HCO3 ARTERIAL (BEAKER) (test ppwu=060) 31 mmol/L 21-29 BASE EXCESS ARTERIAL (BEAKER) (test ierq=122) 7.7 mmol/L -2.0-3.0 PATIENT TEMPERATURE (BEAKER) (test fyyw=0723) 36.4 C FIO2 (BEAKER) (test kfiz=8743) 21.0 % CBC W/PLT COUNT & AUTO [id number] 01:35:00 Test Item Value Reference Range Comments WHITE BLOOD CELL COUNT (BEAKER) (test wseq=035) 12.2 K/ L 3.5-10.5 RED BLOOD CELL COUNT (BEAKER) (test xfmu=592) 3.47 M/ L 4.63-6.08 HEMOGLOBIN (BEAKER) (test hxyq=278) 8.9 GM/DL 13.7-17.5 HEMATOCRIT (BEAKER) (test svjr=212) 28.2 % 40.1-51.0 MEAN CORPUSCULAR VOLUME (BEAKER) (test ixwb=372) 81.3 fL 79.0-92.2 MEAN CORPUSCULAR HEMOGLOBIN (BEAKER) (test 25.6 pg 25.7-32.2 gxnj=639) MEAN CORPUSCULAR HEMOGLOBIN CONC (BEAKER) (test 31.6 GM/DL 32.3-36.5 iiyw=217) RED CELL DISTRIBUTION WIDTH (BEAKER) (test 26.0 % 11.6-14.4 bzee=341) PLATELET COUNT (BEAKER) (test klof=548) 218 K/CU MM 150-450 MEAN PLATELET VOLUME (BEAKER) (test azam=912) 12.4 fL 9.4-12.4 NUCLEATED RED BLOOD CELLS (BEAKER) (test 0 /100 WBC 0-0 ytiq=405) NEUTROPHILS RELATIVE PERCENT (BEAKER) (test 65 % gtnt=497) LYMPHOCYTES RELATIVE PERCENT (BEAKER) (test 19 % efdc=905) MONOCYTES RELATIVE PERCENT (BEAKER) (test 9 % aacw=798) EOSINOPHILS RELATIVE PERCENT (BEAKER) (test 6 % ghnm=380) BASOPHILS RELATIVE PERCENT (BEAKER) (test 0 % tmwj=300) NEUTROPHILS ABSOLUTE COUNT (BEAKER) (test 7.89 K/ L 1.78-5.38 zipk=909) LYMPHOCYTES ABSOLUTE COUNT (BEAKER) (test 2.30 K/ L 1.32-3.57 eqsn=801) MONOCYTES ABSOLUTE COUNT (BEAKER) (test 1.13 K/ L 0.30-0.82 esku=605) EOSINOPHILS ABSOLUTE COUNT (BEAKER) (test 0.76 K/ L 0.04-0.54 tfoa=005) BASOPHILS ABSOLUTE COUNT (BEAKER) (test 0.02 K/ L 0.01-0.08 hmjh=833) IMMATURE GRANULOCYTES-RELATIVE PERCENT (BEAKER) 1 % 0-1 (test amwh=4260) POCT-GLUCOSE [id number] 00:00:00 Test Item Value Reference Range Comments POC-GLUCOSE METER (BEAKER) 100 mg/dL 70-110 : TESTED AT [facility] [address] [facility] (test vzfc=4091) [facility], [address]: Collection Development Librarian/Cloth Shrinker [id number] for ANN BOLDENTXBecca BASIC METABOLIC [id number] 19:33:00 Test Item Value Reference Range Comments SODIUM (BEAKER) (test 148 meq/L 136-145 zsqx=024) POTASSIUM (BEAKER) (test 4.3 meq/L 3.5-5.1 Specimen slightly prcp=817) hemolyzed CHLORIDE (BEAKER) (test 113 meq/L 98-107 twuz=705) CO2 (BEAKER) (test 31 meq/L 22-29 wsfu=723) BLOOD UREA NITROGEN 52 mg/dL 7-21 (BEAKER) (test kije=918) CREATININE (BEAKER) (test 1.07 mg/dL 0.57-1.25 Specimen slightly xnti=859) hemolyzed GLUCOSE RANDOM (BEAKER) 98 mg/dL 70-105 (test baho=468) CALCIUM (BEAKER) (test 8.5 mg/dL 8.4-10.2 ogbh=968) EGFR (BEAKER) (test 70 mL/min/1.73 sq m ESTIMATED GFR IS NOT wtbz=9595) ACCURATE CREATININE CLEARANCE IN PREDICTING GLOMERULAR FILTRATION RATE. ESTIMATED GFR IS NOT APPLICABLE FOR DIALYSIS PATIENTS. Collection Development Librarian ID - [id number] 19:04:00 Test Item Value Reference Range Comments PARTIAL THROMBOPLASTIN TIME (BEAKER) (test 57.5 seconds 22.5-36.0 yfnm=806) POCT-GLUCOSE [id number] 18:18:00 Test Item Value Reference Range Comments POC-GLUCOSE METER (BEAKER) 105 mg/dL 70-110 : TESTED AT [address] (test ubed=0367) [facility], [address]: Collection Development Librarian/Cloth Shrinker [id number] for ELADIA GARCIA POCT-GLUCOSE [id number] 11:54:00 Test Item Value Reference Range Comments POC-GLUCOSE METER (BEAKER) 90 mg/dL 70-110 : TESTED AT [address] (test bprp=7032) [facility], [address]: Collection Development Librarian/Cloth Shrinker YI=[id number] for ELADIA GARCIA [id number] 11:32:00 Test Item Value Reference Range Comments PARTIAL THROMBOPLASTIN TIME (BEAKER) (test 70.7 seconds 22.5-36.0 hmik=291) RAD, CHEST, 1 VIEW, NON [id number] 10:46:00Reason for exam:->CT in placeShould this be performed at the bedside?->YesFINAL REPORT RAD, CHEST, 1 VIEW, NON DEPT INDICATION: CT in place COMPARISON:Prior day's exam FINDINGS: Portable frontal view of the chest. IMPRESSION: Support Lines: Bilateral pigtail catheters, right IJ catheter, ET tube, and NG tube are unchanged without evidence of malpositioning Lungs and pleura: Bilateral effusions are not significantly changed No pneumothorax.Heart and mediastinum: Stable contours. Stable surgical changes.Additional findings: None. Signed: Alicia Garcia Verified Date/Time: 04/01/2019 10:46:42 Reading Location: [facility] Reading Room LEGIONELLA [id number] 10:17: 00 Test Item Value Reference Range Comments CULTURE (BEAKER) (test No Legionella species isolated otts=7727) POCT-GLUCOSE [id number] 06:39:00 Test Item Value Reference Range Comments POC-GLUCOSE METER (BEAKER) 100 mg/dL 70-110 : TESTED AT [facility] [address] [facility] (test sqad=4076) [facility], [address]: Collection Development Librarian/Cloth Shrinker [id number] for SUGU, SHEENAMOL [id number] 04:13:00 Test Item Value Reference Range Comments PARTIAL THROMBOPLASTIN TIME (BEAKER) (test 108.7 seconds 22.5-36.0 sbxn=602) BLOOD GAS, [id number] 04:03:00 Test Item Value Reference Range Comments PH ARTERIAL (BEAKER) (test srgb=070) 7.54 7.35-7.45 PCO2 ARTERIAL (BEAKER) (test ooqv=108) 36 mmHg 35-45 PO2 ARTERIAL (BEAKER) (test bcvc=003) 79 mmHg 80-90 O2 SATURATION ARTERIAL (BEAKER) (test rxqt=358) 97.2 % 96.0-97.0 HCO3 ARTERIAL (BEAKER) (test omyt=980) 31 mmol/L 21-29 BASE EXCESS ARTERIAL (BEAKER) (test kpzl=453) 7.2 mmol/L -2.0-3.0 PATIENT TEMPERATURE (BEAKER) (test hkhl=3223) 36.0 C FIO2 (BEAKER) (test llqq=3327) 21.0 % [id number] 03:53:00 Test Item Value Reference Range Comments PHOSPHORUS (BEAKER) (test umeh=625) 3.9 mg/dL 2.3-4.7 Collection Development Librarian ID - ELISSA [id number] 03:53:00 Test Item Value Reference Range Comments MAGNESIUM (BEAKER) (test ncof=773) 2.1 mg/dL 1.6-2.6 Collection Development Librarian ID - ELISSA MBASIC METABOLIC [id number] 03:53:00 Test Item Value Reference Range Comments SODIUM (BEAKER) (test 147 meq/L 136-145 ylid=337) POTASSIUM (BEAKER) (test 3.8 meq/L 3.5-5.1 nmtb=240) CHLORIDE (BEAKER) (test 114 meq/L 98-107 qqpj=689) CO2 (BEAKER) (test 28 meq/L 22-29 ugvu=276) BLOOD UREA NITROGEN 56 mg/dL 7-21 (BEAKER) (test zgyf=885) CREATININE (BEAKER) (test 0.96 mg/dL 0.57-1.25 ekrj=196) GLUCOSE RANDOM (BEAKER) 112 mg/dL 70-105 (test cnyz=194) CALCIUM (BEAKER) (test 8.4 mg/dL 8.4-10.2 ogkr=138) EGFR (BEAKER) (test 79 mL/min/1.73 sq m ESTIMATED GFR IS NOT arjb=8360) ACCURATE CREATININE CLEARANCE IN PREDICTING GLOMERULAR FILTRATION RATE. ESTIMATED GFR IS NOT APPLICABLE FOR DIALYSIS PATIENTS. Collection Development Librarian ID - ELISSA [facility] W/PLT COUNT & AUTO [id number] 03:44:00 Test Item Value Reference Range Comments WHITE BLOOD CELL COUNT (BEAKER) (test aazy=936) 10.7 K/ L 3.5-10.5 RED BLOOD CELL COUNT (BEAKER) (test oqja=770) 3.62 M/ L 4.63-6.08 HEMOGLOBIN (BEAKER) (test gpqt=998) 9.0 GM/DL 13.7-17.5 HEMATOCRIT (BEAKER) (test uitq=932) 29.7 % 40.1-51.0 MEAN CORPUSCULAR VOLUME (BEAKER) (test eozz=900) 82.0 fL 79.0-92.2 MEAN CORPUSCULAR HEMOGLOBIN (BEAKER) (test 24.9 pg 25.7-32.2 irxe=867) MEAN CORPUSCULAR HEMOGLOBIN CONC (BEAKER) (test 30.3 GM/DL 32.3-36.5 lpoh=778) RED CELL DISTRIBUTION WIDTH (BEAKER) (test 25.5 % 11.6-14.4 iqvd=396) PLATELET COUNT (BEAKER) (test lbhz=743) 226 K/CU MM 150-450 MEAN PLATELET VOLUME (BEAKER) (test ftuf=866) 11.9 fL 9.4-12.4 NUCLEATED RED BLOOD CELLS (BEAKER) (test 0 /100 WBC 0-0 nzdy=414) NEUTROPHILS RELATIVE PERCENT (BEAKER) (test 72 % xjqk=205) LYMPHOCYTES RELATIVE PERCENT (BEAKER) (test 16 % jlpu=617) MONOCYTES RELATIVE PERCENT (BEAKER) (test 7 % zxlo=808) EOSINOPHILS RELATIVE PERCENT (BEAKER) (test 4 % nzxo=947) BASOPHILS RELATIVE PERCENT (BEAKER) (test 0 % fkjn=627) NEUTROPHILS ABSOLUTE COUNT (BEAKER) (test 7.72 K/ L 1.78-5.38 qvjf=867) LYMPHOCYTES ABSOLUTE COUNT (BEAKER) (test 1.69 K/ L 1.32-3.57 kpdb=676) MONOCYTES ABSOLUTE COUNT (BEAKER) (test 0.75 K/ L 0.30-0.82 tksm=613) EOSINOPHILS ABSOLUTE COUNT (BEAKER) (test 0.43 K/ L 0.04-0.54 ifgb=003) BASOPHILS ABSOLUTE COUNT (BEAKER) (test 0.03 K/ L 0.01-0.08 ewzh=490) IMMATURE GRANULOCYTES-RELATIVE PERCENT (BEAKER) 1 % 0-1 (test wvsx=2949) POCT-GLUCOSE [id number] 00:02:00 Test Item Value Reference Range Comments POC-GLUCOSE METER (BEAKER) 87 mg/dL 70-110 : TESTED AT [address] (test atak=0743) [place] [id number]: Collection Development Librarian/Cloth Shrinker [id number] for SUGU, SHEENAMOL [id number] 22:40:00 Test Item Value Reference Range Comments PARTIAL THROMBOPLASTIN TIME (BEAKER) (test 43.8 seconds 22.5-36.0 xymt=906) [id number] 20:55:00 Test Item Value Reference Range Comments PARTIAL THROMBOPLASTIN TIME (BEAKER) (test 115.9 seconds 22.5-36.0 zyfk=655) POCT-GLUCOSE [id number] 18:19:00 Test Item Value Reference Range Comments POC-GLUCOSE METER (BEAKER) 92 mg/dL 70-110 : TESTED AT [address] (test qkzi=6747) [place] [address]: Collection Development Librarian/Cloth Shrinker [id number] for ELADIA GARCIA [id number] 16:03:00Medical Cytology Report Case: [id number] Authorizing Provider: Jerald Bartlett Collected: 03/28/2019 08Kayli Whitney MD OrderingLocation: [place] [address] ICU Received: 2019 1332 Pathologist: Lexus Robbins MD Specimen: Pleural PLEURAL FLUID ( CYTOSPINS): - RARE REACTIVE MESOTHELIAL CELLS PRESENT IN A BACKGROUND OF ABUNDANT ACUTE INFLAMMATION Signing Pathologist Direct Phone Line: [phone] effusion; HFpEF, bioprosthetic valve, COPD, Afib, and chronic right pleural effusion who presented to OSH on 03/11 w/ respiratory failure and now bilateral pleural effusionsPLEURAL FLUID (LATERALITY NOT DESIGNATED) Received 20 ml dark orange fluidPrepared 4 cytospinsCollected: [id number]: [id number].[facility], Department of Pathology, [address] [place] [id number], [facility], [facility], [address] [place] [id number], [facility], [facility] of [facility], [address] [place] [address], [id number] 14:43:00 Test Item Value Reference Range Comments TROPONIN I (BEAKER) (test ngud=113) 0.20 ng/mL 0.00-0.03 Troponin I (TnI) levels must [...] failure, acidosis, acute neurological disease, and persistent tachyarrhythmia.Collection Development Librarian ID - SONIA FCOMPREHENSIVE METABOLIC [id number] 14:39:00 Test Item Value Reference Range Comments TOTAL PROTEIN (BEAKER) 5.3 gm/dL 6.0-8.3 (test ekyj=122) ALBUMIN (BEAKER) (test 1.7 g/dL 3.5-5.0 cfhq=4922) ALKALINE PHOSPHATASE 101 U/L 40-150 (BEAKER) (test awmm=259) BILIRUBIN TOTAL (BEAKER) 1.8 mg/dL 0.2-1.2 (test uaqg=149) SODIUM (BEAKER) (test 149 meq/L 136-145 cnba=225) POTASSIUM (BEAKER) (test 3.8 meq/L 3.5-5.1 rxkl=275) CHLORIDE (BEAKER) (test 113 meq/L 98-107 ppgg=388) CO2 (BEAKER) (test 30 meq/L 22-29 dkku=316) BLOOD UREA NITROGEN 54 mg/dL 7-21 (BEAKER) (test bcpf=999) CREATININE (BEAKER) (test 0.97 mg/dL 0.57-1.25 fysz=050) GLUCOSE RANDOM (BEAKER) 103 mg/dL 70-105 (test eexd=867) CALCIUM (BEAKER) (test 8.8 mg/dL 8.4-10.2 cyqv=328) AST (SGOT) (BEAKER) (test 45 U/L 5-34 xtij=550) ALT (SGPT) (BEAKER) (test 32 U/L 6-55 hujg=123) EGFR (BEAKER) (test 78 mL/min/1.73 sq m ESTIMATED GFR IS NOT gtzz=5209) ACCURATE CREATININE CLEARANCE IN PREDICTING GLOMERULAR FILTRATION RATE. ESTIMATED GFR IS NOT APPLICABLE FOR DIALYSIS PATIENTS. Collection Development Librarian ID [facility] [id number] 14:33:00 Test Item Value Reference Range Comments PHOSPHORUS (BEAKER) (test yyxe=712) 3.7 mg/dL 2.3-4.7 Collection Development Librarian ID [facility] [id number] 14:33:00 Test Item Value Reference Range Comments MAGNESIUM (BEAKER) (test emgk=497) 2.1 mg/dL 1.6-2.6 Collection Development Librarian ID [facility] FBASIC METABOLIC [id number] 14:33:00 Test Item Value Reference Range Comments SODIUM (BEAKER) (test 149 meq/L 136-145 gndm=081) POTASSIUM (BEAKER) (test 3.8 meq/L 3.5-5.1 tsbq=745) CHLORIDE (BEAKER) (test 113 meq/L 98-107 guwi=450) CO2 (BEAKER) (test 30 meq/L 22-29 orku=484) BLOOD UREA NITROGEN 54 mg/dL 7-21 (BEAKER) (test spgt=532) CREATININE (BEAKER) (test 0.97 mg/dL 0.57-1.25 ugpg=369) GLUCOSE RANDOM (BEAKER) 103 mg/dL 70-105 (test flxz=328) CALCIUM (BEAKER) (test 8.8 mg/dL 8.4-10.2 mfwa=330) EGFR (BEAKER) (test 78 mL/min/1.73 sq m ESTIMATED GFR IS NOT svjd=0685) ACCURATE CREATININE CLEARANCE IN PREDICTING GLOMERULAR FILTRATION RATE. ESTIMATED GFR IS NOT APPLICABLE FOR DIALYSIS PATIENTS. [id number] 14:31:00 Test Item Value Reference Range Comments PROTIME (BEAKER) (test oecm=883) 17.0 seconds 11.9-14.2 INR (BEAKER) (test vdcd=149) 1.4 <=5.9 PARTIAL THROMBOPLASTIN TIME (BEAKER) (test 68.3 seconds 22.5-36.0 zvnm=272) Effective 07/24/2018: PT Reference Range ChangeNew: 11.9-14.2 Previous: 11.7- 14.7RECOMMENDED COUMADIN/WARFARIN INR THERAPY RANGESSTANDARD DOSE: 2.0-3.0 Includes: PROPHYLAXIS for venous thrombosis, systemic embolization; TREATMENT for venous thrombosis and/or pulmonary embolus.HIGH RISK: Target INR is2.5-3.5 for patients wiht mechanical heart valves.[id number] 14:31:00 Test Item Value Reference Range Comments PARTIAL THROMBOPLASTIN TIME (BEAKER) (test 68.3 seconds 22.5-36.0 bgll=069) LACTIC ACID, [id number] 14:30:00 Test Item Value Reference Range Comments LACTATE BLOOD VENOUS (2) (BEAKER) (test 1.7 mmol/L 0.5-2.2 dilj=2707) Collection Development Librarian ID - SONIA THURMAN, CHEST, 1 VIEW, NON [id number] 12:14:00Reason for exam:->CT in placeShould this be performed at the bedside?->YesFINAL REPORT EXAM: Frontal chest radiograph HISTORY PROVIDED: Chest tube in place COMPARISON: 03/30/2019 IMPRESSION:Support lines and tubes are in unchanged position. No significant change is seen in the right greater than left small bilateral pleural effusions and pulmonary vascular congestion with bilateral interstitial and airspace opacities. No discernible pneumothorax. The cardiac silhouette remains enlarged. Sternotomy wires are again noted. No acute osseous abnormality. Signed: Fredi Maldonado Verified Date/Time: 12:14:06 Reading Location: [facility] Mammo Reading Room POCT- GLUCOSE [id number] 12:02:00 Test Item Value Reference Range Comments POC-GLUCOSE METER (Picture Production CompanySHAYLA) 97 mg/dL 70-110 : TESTED AT [address] (test kjdu=5736) [facility], [id number]: Collection Development Librarian/Cloth Shrinker [id number] for ELADIA GARCIA RAD, ABDOMEN/KUB, 1 VIEW [id number] 11:36:00Reason for exam:->NGT placementFINAL REPORT RAD, ABDOMEN/KUB, 1 VIEW AP INDICATION: NGT placement COMPARISON: None TECHNIQUE: Limited portable radiograph of the lower chest and upper abdomen was acquired for purposes of evaluating nasogastric tube placement FINDINGS:Nasogastric tube tip overlies the stomach Signed: Alicia Garcia Verified Date/Time: 03/31/2019 11: 36:59 Reading Location: [facility] Radiology Reading Room TROPONIN [id number] 10:05:00 Test Item Value Reference Range Comments TROPONIN I (BEAKER) (test pfym=686) 0.25 ng/mL 0.00-0.03 Troponin I (TnI) levels must [...] failure, acidosis, acute neurological disease, and persistent tachyarrhythmia.Collection Development Librarian ID - SONIA [id number] 07:11:00 Test Item Value Reference Range Comments PARTIAL THROMBOPLASTIN TIME (BEAKER) (test 44.8 seconds 22.5-36.0 scjx=441) BLOOD GAS, [id number] 06:56:00 Test Item Value Reference Range Comments PH ARTERIAL (BEAKER) (test zqky=964) 7.48 7.35-7.45 PCO2 ARTERIAL (BEAKER) (test swyq=257) 41 mmHg 35-45 PO2 ARTERIAL (BEAKER) (test tmlz=037) 186 mmHg 80-90 O2 SATURATION ARTERIAL (BEAKER) (test andm=577) 99.4 % 96.0-97.0 HCO3 ARTERIAL (BEAKER) (test qsvu=359) 30 mmol/L 21-29 BASE EXCESS ARTERIAL (BEAKER) (test sujd=426) 5.8 mmol/L -2.0-3.0 PATIENT TEMPERATURE (BEAKER) (test tfsy=9670) 36.5 C FIO2 (BEAKER) (test tvsq=9489) 40.0 % BASIC METABOLIC [id number] 06:08:00 Test Item Value Reference Range Comments SODIUM (BEAKER) (test 150 meq/L 136-145 tmrm=160) POTASSIUM (BEAKER) (test 4.1 meq/L 3.5-5.1 iedf=372) CHLORIDE (BEAKER) (test 116 meq/L 98-107 ctwv=283) CO2 (BEAKER) (test 29 meq/L 22-29 ujsm=891) BLOOD UREA NITROGEN 54 mg/dL 7-21 (BEAKER) (test tdpp=848) CREATININE (BEAKER) (test 1.02 mg/dL 0.57-1.25 ubst=110) GLUCOSE RANDOM (BEAKER) 95 mg/dL 70-105 (test rxms=775) CALCIUM (BEAKER) (test 9.0 mg/dL 8.4-10.2 wgme=733) EGFR (BEAKER) (test 74 mL/min/1.73 sq m ESTIMATED GFR IS NOT rjwt=6272) ACCURATE CREATININE CLEARANCE IN PREDICTING GLOMERULAR FILTRATION RATE. ESTIMATED GFR IS NOT APPLICABLE FOR DIALYSIS PATIENTS. Collection Development Librarian ID [employer] PHAN MARIVELOCT-GLUCOSE [id number] 05:52:00 Test Item Value Reference Range Comments POC-GLUCOSE METER (BEAKER) 89 mg/dL 70-110 : TESTED AT [facility] [address] (test bxmi=2071) [facility], [address]: Collection Development Librarian/Cloth Shrinker [id number]=[id number] for EDISON BENDER [id number] 05:29:00 Test Item Value Reference Range Comments PARTIAL THROMBOPLASTIN TIME (BEAKER) (test 111.7 seconds 22.5-36.0 hlcs=794) [id number] 05:27:00 Test Item Value Reference Range Comments PHOSPHORUS (BEAKER) (test xyqt=790) 3.6 mg/dL 2.3-4.7 Collection Development Librarian ID - PIAYA [id number] 05:27:00 Test Item Value Reference Range Comments MAGNESIUM (BEAKER) (test zjrd=897) 2.1 mg/dL 1.6-2.6 Collection Development Librarian ID - PIBECKY LLACTIC ACID, [id number] 04:56:00 Test Item Value Reference Range Comments LACTATE BLOOD VENOUS (2) (BEAKER) (test 1.8 mmol/L 0.5-2.2 puht=6947) Collection Development Librarian ID - EMILIE LCBC W/PLT COUNT & AUTO [id number] 04:41:00 Test Item Value Reference Range Comments WHITE BLOOD CELL COUNT 13.4 K/ L 3.5-10.5 (BEAKER) (test gyag=386) RED BLOOD CELL COUNT (BEAKER) 3.65 M/ L 4.63-6.08 (test kbdj=894) HEMOGLOBIN (BEAKER) (test 9.2 GM/DL 13.7-17.5 nrud=580) HEMATOCRIT (BEAKER) (test 29.6 % 40.1-51.0 vcyg=739) MEAN CORPUSCULAR VOLUME 81.1 fL 79.0-92.2 Discordant MCV results (BEAKER) (test qgbl=846) compared to previous results; clinical correlation required. MEAN CORPUSCULAR HEMOGLOBIN 25.2 pg 25.7-32.2 (BEAKER) (test ebvl=951) MEAN CORPUSCULAR HEMOGLOBIN 31.1 GM/DL 32.3-36.5 CONC (BEAKER) (test nljb=665) RED CELL DISTRIBUTION WIDTH 24.4 % 11.6-14.4 (BEAKER) (test qzvz=937) PLATELET COUNT (BEAKER) (test 226 K/CU MM 150-450 xcgv=661) MEAN PLATELET VOLUME (BEAKER) 12.8 fL 9.4-12.4 (test kubj=392) NUCLEATED RED BLOOD CELLS 0 /100 WBC 0-0 (BEAKER) (test xrmm=007) NEUTROPHILS RELATIVE PERCENT 82 % (BEAKER) (test gvuw=306) LYMPHOCYTES RELATIVE PERCENT 11 % (BEAKER) (test buxg=112) MONOCYTES RELATIVE PERCENT 6 % (BEAKER) (test jdjf=214) EOSINOPHILS RELATIVE PERCENT 1 % (BEAKER) (test vgcw=748) BASOPHILS RELATIVE PERCENT 0 % (BEAKER) (test htnq=508) NEUTROPHILS ABSOLUTE COUNT 10.95 K/ L 1.78-5.38 (BEAKER) (test ctct=310) LYMPHOCYTES ABSOLUTE COUNT 1.48 K/ L 1.32-3.57 (BEAKER) (test jbjz=363) MONOCYTES ABSOLUTE COUNT 0.80 K/ L 0.30-0.82 (BEAKER) (test efzy=170) EOSINOPHILS ABSOLUTE COUNT 0.07 K/ L 0.04-0.54 (BEAKER) (test svni=249) BASOPHILS ABSOLUTE COUNT 0.02 K/ L 0.01-0.08 (BEAKER) (test irqd=185) IMMATURE 1 % 0-1 GRANULOCYTES-RELATIVE PERCENT (BEAKER) (test nrda=2864) BLOOD GAS, [id number] 04:30:00 Test Item Value Reference Range Comments PH ARTERIAL (BEAKER) (test ehbd=685) 7.60 7.35-7.45 PCO2 ARTERIAL (BEAKER) (test ipri=039) 29 mmHg 35-45 PO2 ARTERIAL (BEAKER) (test dcxn=515) 198 mmHg 80-90 O2 SATURATION ARTERIAL (BEAKER) (test pijx=542) 99.5 % 96.0-97.0 HCO3 ARTERIAL (BEAKER) (test vofl=885) 27 mmol/L 21-29 BASE EXCESS ARTERIAL (BEAKER) (test gjed=559) 5.6 mmol/L -2.0-3.0 PATIENT TEMPERATURE (BEAKER) (test ysds=6487) 36.5 C FIO2 (BEAKER) (test opae=5659) 40.0 % CT, BRAIN, WITHOUT [id number] 04:20:00FINAL REPORT EXAM: CT, BRAIN, WITHOUT CONTRAST CLINICAL INDICATION: Cerebral hemorrhage suspected. TECHNIQUE: CT images from skull base to vertex without IV contrast. This exam was performed according to the departmental dose optimization program which includes automated exposure control, adjustment of the mA and/or kV according to the patient size, and/or use of an iterative reconstruction technique. COMPARISON: 03/24/2019 FINDINGS: Parenchyma: No evidence of acute infarction. Chronic lacunar infarction within the anterior right amador radiata adjacent to the right frontal horn, as before. No hemorrhage. Patchy areas of hypoattenuation are present in the cerebral white matter that are nonspecific but compatible with mild chronic microvascular ischemic changes. Extra-axial Collection: None Ventricular System: No hydrocephalus Osseous Structures: No acute osseous abnormality. Included Orbits: Normal Paranasal Sinuses: Predominantly clear. There is a small osteoma in the left frontal sinus. Tympanomastoid Cavities: Partial bilateral mastoid effusions, nonspecific in the setting of intubation. Other: None IMPRESSION: 1. No acute abnormality on CT head without contrast. 2. Remote lacunar infarction in the right amador radiata and background of mild chronic deep white matter ischemic changes. If there is persistent clinical concern for intracranial pathology, MR examination is recommended for further characterization. Signed: Tomasa Luque [facility] VerifiedDate/Time: 03/31/2019 04:20:24 TROPONIN [id number] 02:38:00 Test Item Value Reference Range Comments TROPONIN I (MACYAKER) (test tkpo=710) 0.22 ng/mL 0.00-0.03 Troponin I (TnI) levels must [...] failure, acidosis, acute neurological disease, and persistent tachyarrhythmia.Collection Development Librarian ID - PIAYA LB-TYPE NATRIURETIC FACTOR (BNP)2019-03-31 02:23:00 Test Item Value Reference Range Comments B-TYPE NATRIURETIC PEPTIDE (BEAKER) (test 1761 pg/mL 0-100 aphg=567) Collection Development Librarian ID - EMILIE LLACTIC ACID, [id number] 02:14:00 Test Item Value Reference Range Comments LACTATE BLOOD VENOUS (2) (BEAKER) (test 1.8 mmol/L 0.5-2.2 fhyr=1551) Collection Development Librarian ID - EMILIE LPOCT-GLUCOSE [id number] 00:30:00 Test Item Value Reference Range Comments POC-GLUCOSE METER (BEAKER) 94 mg/dL 70-110 : TESTED AT [facility] [address] [facility] (test mplr=7864) [facility], [address]: Collection Development Librarian/Cloth Shrinker [id number] for EDISON BENDER CT, CHEST WITH IV CONTRAST- PE TEST [id number] 00:25:00FINAL REPORT Comparison: CT chest dated 03/17/2019 Indication: 53-year -old male with acute chest pain, hypoxia, and shortness of breath clinically suspicious for acute pulmonary embolism. Technique: Precontrast axial images were obtained at pulmonary trunk level for the purpose of monitoring subsequent IV contrast. Postcontrast axial images of the chest were obtained from above the arch level to the lower chest at maximum enhancement of the pulmonary artery. This exam was performed according to the departmental dose optimization program which includes automated exposure control, adjustment of the mA and/or kV according to the patient size, and/or use of an iterative reconstruction technique. Findings: Vascular: The study is diagnostic to the level of the segmental pulmonary arteries. Pulmonary arteries: No evidence of acute or chronic pulmonary embolism. Specifically,the pulmonary arteries are widely patent, without evidence for filling defect or vascular cutoff. The pulmonary arteries are normal in size. Thoracic aorta: Aneurysmal dilatation of the ascending thoracic aorta measuring up to 4.9 cm. Pulmonary veins: Normal configuration. Coronary arteries: Normal configuration with mild atherosclerotic calcifications. Systemic veins: No identified thrombus. Right IJ central venous catheter with tip terminating in the SVC. Chest: Lungs/pleura : Moderate paraseptal and centrilobular emphysematous changes. Small right anterior pneumothorax. Trace gas in the left pleural space with bilateral pleural pigtail catheters noted. Bilateral lower lobe dependent atelectasis. Small bilateral pleural effusions. Tree-in-bud groundglass airspace opacities bilaterally however predominantly in the right lower lobe with bronchial wall thickening and scattered mucous plugging. Interlobular septal thickening. Findings may reflect sequela of aspiration however pneumonia should be excluded clinically. Mediastinum/ana lilia: Multiple prominent mediastinal lymph nodes, for example the left lower paratracheal lymph node measuring 1.3 cm in short axis, unchanged in the interval. The endotracheal tube terminates approximately 2.0 cm above the shruthi the level of the T5 vertebral body. Retained secretions in the bilateral bronchials and trachea.. Thyroid gland is unremarkable. The esophagus is normal in caliber. Heart: The cardiac chambers demonstrate normal atrioventricular and ventriculoarterial concordance, and systemic and pulmonary venous return. Global cardiomegaly. No pericardial effusion. Mitral annular calcifications. Underfilling of the left atrial appendage may be due to timing of contrast however correlate with echocardiogram to exclude thrombus. Mixing artifact in the right atrium limits evaluation for presence of thrombus. Axillae/subcutaneous soft tissues: Multiple prominent bilateral axillary lymph nodes may be reactive. Total body anasarca.. No suspicious subcutaneous nodules or fluid collections. Visualized upper abdomen: Enlarged perisplenic varices. Enteric tube is seen terminating in the gastric antrum. Nodular contour of the liver . Small volume intra-abdominal ascites. Bones: No aggressive osseous lesions or acute fractures. Multilevel degenerative changes in thoracic spine. Postsurgical changes of a median sternotomy. Acute right anterior lateral fourth through seventh rib fractures with fracture through the costochondral cartilage of the anterior eighth right rib. Impression: No evidence for acute or chronic pulmonary embolism. Ascending thoracic aortic aneurysm. Small right anterior pneumothorax and tiny focus of gas in the left pleural space with bilateral pleural pigtail catheters in place. Tree-in-bud groundglass airspace opacities bilaterally with bronchial wall thickening and scattered mucous plugging may reflect sequela of aspiration however pneumonia should be excluded clinically. Global cardiomegaly. Underfilling of the left atrial appendage may be due to timing of contrast however correlate with echocardiogram to exclude thrombus. Acute right anterior lateral fourth through seventh rib fractures with fracture through the costochondral cartilage of the anterior eighth right rib. Signed: Gunjan Hanson Verified Date/Time: 00:25:44 Electronically signed by: GUNJAN HANSON MD on 04/2019 12:25 [id number] 21:46:00 Test Item Value Reference Range Comments MAGNESIUM (BEAKER) (test ajrw=585) 2.1 mg/dL 1.6-2.6 Collection Development Librarian ID - KENNCOMPREHENSIVE METABOLIC [id number] 21:46:00 Test Item Value Reference Range Comments TOTAL PROTEIN (BEAKER) 4.4 gm/dL 6.0-8.3 (test mumh=242) ALBUMIN (BEAKER) (test 1.4 g/dL 3.5-5.0 siyn=4173) ALKALINE PHOSPHATASE 123 U/L 40-150 (BEAKER) (test spjc=146) BILIRUBIN TOTAL (BEAKER) 1.2 mg/dL 0.2-1.2 (test chyd=996) SODIUM (BEAKER) (test 148 meq/L 136-145 xpnp=400) POTASSIUM (BEAKER) (test 4.8 meq/L 3.5-5.1 vcrb=367) CHLORIDE (BEAKER) (test 119 meq/L 98-107 vqzk=028) CO2 (BEAKER) (test 27 meq/L 22-29 arad=770) BLOOD UREA NITROGEN 54 mg/dL 7-21 (BEAKER) (test kjiv=408) CREATININE (BEAKER) (test 1.12 mg/dL 0.57-1.25 cbpe=364) GLUCOSE RANDOM (BEAKER) 360 mg/dL 70-105 (test okmh=498) CALCIUM (BEAKER) (test 12.3 mg/dL 8.4-10.2 wcmd=753) AST (SGOT) (BEAKER) (test 38 U/L 5-34 mgkm=919) ALT (SGPT) (BEAKER) (test 24 U/L 6-55 yhkt=506) EGFR (BEAKER) (test 66 mL/min/1.73 sq m ESTIMATED GFR IS NOT nkpu=1900) ACCURATE CREATININE CLEARANCE IN PREDICTING GLOMERULAR FILTRATION RATE. ESTIMATED GFR IS NOT APPLICABLE FOR DIALYSIS PATIENTS. Collection Development Librarian ID - NTPOperator ID - KAUSHIKVENITA [id number] 21:23:00 Test Item Value Reference Range Comments TROPONIN I (BEAKER) (test uwhe=356) 0.11 ng/mL 0.00-0.03 Troponin I (TnI) levels must [...] failure, acidosis, acute neurological disease, and persistent tachyarrhythmia.Collection Development Librarian ID - [id number] 21 :21:00 Test Item Value Reference Range Comments PHOSPHORUS (BEAKER) (test mvum=965) 4.5 mg/dL 2.3-4.7 Collection Development Librarian ID - NTPLACTIC ACID, [id number] 21:15:00 Test Item Value Reference Range Comments LACTATE BLOOD VENOUS (2) (BEAKER) (test 4.5 mmol/L 0.5-2.2 fsho=8791) Collection Development Librarian ID - NTPRAD, CHEST, 1 VIEW, NON [id number] 21:13:00Reason for exam: ->cardiac arrestShould this be performed at the bedside?->YesFINAL REPORT RAD, CHEST, 1 VIEW, NON DEPT INDICATION: cardiac arrest COMPARISON: Prior day's exam FINDINGS: Portable frontal view of the chest. IMPRESSION: Support Lines: Interval intubation with endotracheal tube terminating 3.0 cm above the shruthi. Otherwise unchanged support apparatus. Lungs and pleura: Improved aeration of the right lung with persistent heterogeneous airspace opacities bilaterally, pulmonary vascular congestion and small right greater than left pleural effusion. No pneumothorax.Heart and mediastinum: Stable contours. Stable surgical changes.Additional findings: None. Signed: Gunjan Hansonanni Verified Date/Time: 03/30/2019 21:13 :13 POCT-CALCIUM [id number] 20:57:00 Test Item Value Reference Range Comments POC-CALCIUM IONIZED (BEAKER) 1.63 mmol/L 1.12-1.27 TESTED AT [address] (test qgzc=8940) [place] [address] [id number] 20:57:00 Test Item Value Reference Range Comments POC-HEMATOCRIT (BEAKER) (test 28 % 40-50 TESTED AT [address] ckvn=1326) [place] [address] [id number] 20:57:00 Test Item Value Reference Range Comments POC-HEMOGLOBIN (BEAKER) 9.5 g/dL 13.0-16.8 TESTED AT [address] (test gowd=9765) [place] [id number] AT [place] [address] POCT-BLOOD GASES, [id number] 20:56:00 Test Item Value Reference Range Comments TEMP, CELSIUS-POC (BEAKER) 36.1 (test fvfm=3488) FIO2-POC (BEAKER) (test 100 TESTED AT [address] bywk=2915) [place] [address] PH, ARTERIAL-POC (BEAKER) 7.320 7.350-7.450 (test kdcd=8454) PCO2, ARTERIAL-POC (BEAKER) 61.8 mm Hg 35.0-45.0 (test zasb=5964) PO2, ARTERIAL-POC (BEAKER) 409.0 mm Hg 80.0-90.0 (test johz=6442) SO2, ARTERIAL-POC (BEAKER) 100.0 % 96.0-97.0 (test vvav=1501) HCO3, ARTERIAL-POC (BEAKER) 32.2 meq/L 21.0-29.0 (test qacq=6258) BASE EXCESS, ARTERIAL-POC 6.0 meq/L -2.0-3.0 (BEAKER) (test cidu=0169) [id number] 20:56:00 Test Item Value Reference Range Comments POC-SODIUM (BEAKER) (test 147 meq/L 135-148 TESTED AT [address] wqpy=8700) [place] [address] [id number] 20:56:00 Test Item Value Reference Range Comments POC-POTASSIUM (BEAKER) (test 4.1 meq/L 3.6-5.5 TESTED AT [address] qurm=9913) [place] [address] [id number] 20:56:00 Test Item Value Reference Range Comments POC-GLUCOSE (BEAKER) (test 249 mg/dL 70-110 TESTED AT [address] rvif=4875) [place] [address] CBC W/PLT COUNT & AUTO [id number] 20:54:00 Test Item Value Reference Range Comments WHITE BLOOD CELL COUNT (BEAKER) (test zcrj=414) 12.9 K/ L 3.5-10.5 RED BLOOD CELL COUNT (BEAKER) (test wujc=083) 3.71 M/ L 4.63-6.08 HEMOGLOBIN (BEAKER) (test lqat=354) 9.4 GM/DL 13.7-17.5 HEMATOCRIT (BEAKER) (test iimh=905) 31.6 % 40.1-51.0 MEAN CORPUSCULAR VOLUME (BEAKER) (test xzdu=833) 85.2 fL 79.0-92.2 MEAN CORPUSCULAR HEMOGLOBIN (BEAKER) (test 25.3 pg 25.7-32.2 eqpy=214) MEAN CORPUSCULAR HEMOGLOBIN CONC (BEAKER) (test 29.7 GM/DL 32.3-36.5 ykhc=006) RED CELL DISTRIBUTION WIDTH (BEAKER) (test 24.5 % 11.6-14.4 lipq=459) PLATELET COUNT (BEAKER) (test bios=711) 226 K/CU MM 150-450 MEAN PLATELET VOLUME (BEAKER) (test lakm=962) 12.8 fL 9.4-12.4 NUCLEATED RED BLOOD CELLS (BEAKER) (test 1 /100 WBC 0-0 sjgk=947) NEUTROPHILS RELATIVE PERCENT (BEAKER) (test 60 % kyie=404) LYMPHOCYTES RELATIVE PERCENT (BEAKER) (test 28 % dbcb=783) MONOCYTES RELATIVE PERCENT (BEAKER) (test 7 % epty=371) EOSINOPHILS RELATIVE PERCENT (BEAKER) (test 2 % gmvm=365) BASOPHILS RELATIVE PERCENT (BEAKER) (test 0 % qzof=909) NEUTROPHILS ABSOLUTE COUNT (BEAKER) (test 7.74 K/ L 1.78-5.38 vofq=964) LYMPHOCYTES ABSOLUTE COUNT (BEAKER) (test 3.63 K/ L 1.32-3.57 kjrj=907) MONOCYTES ABSOLUTE COUNT (BEAKER) (test 0.90 K/ L 0.30-0.82 vvtd=270) EOSINOPHILS ABSOLUTE COUNT (BEAKER) (test 0.24 K/ L 0.04-0.54 nnrc=372) BASOPHILS ABSOLUTE COUNT (BEAKER) (test 0.04 K/ L 0.01-0.08 hesi=144) IMMATURE GRANULOCYTES-RELATIVE PERCENT (BEAKER) 3 % 0-1 (test jhmi=4693) [id number] 18:34:00 Test Item Value Reference Range Comments PARTIAL THROMBOPLASTIN TIME (BEAKER) (test 74.5 seconds 22.5-36.0 odew=094) POCT-GLUCOSE [id number] 18:06:00 Test Item Value Reference Range Comments POC-GLUCOSE METER (BEAKER) 123 mg/dL 70-110 : TESTED AT [address] (test bunv=2320) [facility], [address]: Collection Development Librarian/Cloth Shrinker [id number] for CRYSTAL LIZAMA BASIC METABOLIC [id number] 16:18:00 Test Item Value Reference Range Comments SODIUM (BEAKER) (test 149 meq/L 136-145 crqm=127) POTASSIUM (BEAKER) (test 4.5 meq/L 3.5-5.1 dpzf=132) CHLORIDE (BEAKER) (test 116 meq/L 98-107 aqau=928) CO2 (BEAKER) (test 30 meq/L 22-29 sbhs=840) BLOOD UREA NITROGEN 54 mg/dL 7-21 (BEAKER) (test onwc=768) CREATININE (BEAKER) (test 0.99 mg/dL 0.57-1.25 zcje=707) GLUCOSE RANDOM (BEAKER) 126 mg/dL 70-105 (test bpdj=666) CALCIUM (BEAKER) (test 8.2 mg/dL 8.4-10.2 fmgq=939) EGFR (BEAKER) (test 76 mL/min/1.73 sq m ESTIMATED GFR IS NOT pixq=4129) ACCURATE CREATININE CLEARANCE IN PREDICTING GLOMERULAR FILTRATION RATE. ESTIMATED GFR IS NOT APPLICABLE FOR DIALYSIS PATIENTS. Collection Development Librarian ID - [id number] 12:36:00 Test Item Value Reference Range Comments PARTIAL THROMBOPLASTIN TIME (BEAKER) (test 80.4 seconds 22.5-36.0 tfbu=729) POCT-GLUCOSE [id number] 12:00:00 Test Item Value Reference Range Comments POC-GLUCOSE METER (BEAKER) 116 mg/dL 70-110 : TESTED AT [facility] [address] [facility] (test xavf=7653) [facility], [id number]: Collection Development Librarian/Cloth Shrinker [id number] for ISABELA GILMORE BLOOD [id number] 11:00:00 Test Item Value Reference Range Comments CULTURE (BEAKER) (test kiue=2649) No growth in 5 days BLOOD [id number] 11:00:00 Test Item Value Reference Range Comments CULTURE (BEAKER) (test odyw=2341) No growth in 5 days RAD, CHEST, 1 VIEW, NON [id number] 10:31:00Reason for exam:->CT in placeShould this be performed at the bedside?->YesFINAL REPORT Comparison: 03/29/2019 TECHNIQUE: Single view of the chest FINDINGS: There is increased opacification in the right hemithorax when compared to the previous exam, whilesome of this could be artifactual, due to positioning and technique, worsening pleural effusion/consolidation is suspected. Prominent interstitial markings in the left lung are grossly stable. No pneumothorax. Support lines and tubes are stable. Signed: Aiden Greer MDReport Verified Date/ Time: 03/30/2019 10:31:51 Reading Location: [address] Transitional Reading Room [id number] 06:59:00 Test Item Value Reference Range Comments PARTIAL THROMBOPLASTIN TIME (BEAKER) (test 53.3 seconds 22.5-36.0 zhgh=519) POCT-GLUCOSE [id number] 06:06:00 Test Item Value Reference Range Comments POC-GLUCOSE METER (BEAKER) 103 mg/dL 70-110 : TESTED AT [address] (test yuni=4880) [facility], [address]: Collection Development Librarian/Cloth Shrinker [id number] for SILVIO STROUD [id number] 05:16:00 Test Item Value Reference Range Comments PHOSPHORUS (BEAKER) (test samq=626) 3.4 mg/dL 2.3-4.7 Collection Development Librarian ID - EMILIE [id number] 05:16:00 Test Item Value Reference Range Comments MAGNESIUM (BEAKER) (test fioo=533) 2.2 mg/dL 1.6-2.6 Collection Development Librarian ID - EMILIE LBASIC METABOLIC [id number] 05:16:00 Test Item Value Reference Range Comments SODIUM (BEAKER) (test 150 meq/L 136-145 vgta=070) POTASSIUM (BEAKER) (test 4.0 meq/L 3.5-5.1 tzhx=185) CHLORIDE (BEAKER) (test 118 meq/L 98-107 enam=826) CO2 (BEAKER) (test 29 meq/L 22-29 ccui=111) BLOOD UREA NITROGEN 51 mg/dL 7-21 (BEAKER) (test qmom=501) CREATININE (BEAKER) (test 0.90 mg/dL 0.57-1.25 rzgs=931) GLUCOSE RANDOM (BEAKER) 121 mg/dL 70-105 (test vuyu=431) CALCIUM (BEAKER) (test 8.2 mg/dL 8.4-10.2 zekm=865) EGFR (BEAKER) (test 85 mL/min/1.73 sq m ESTIMATED GFR IS NOT jvsx=8456) ACCURATE CREATININE CLEARANCE IN PREDICTING GLOMERULAR FILTRATION RATE. ESTIMATED GFR IS NOT APPLICABLE FOR DIALYSIS PATIENTS. Collection Development Librarian ID - PIAYA [id number] 05:13:00 Test Item Value Reference Range Comments PARTIAL THROMBOPLASTIN TIME (BEAKER) (test 118.9 seconds 22.5-36.0 iucv=269) CBC W/PLT COUNT & AUTO [id number] 04:58:00 Test Item Value Reference Range Comments WHITE BLOOD CELL COUNT (BEAKER) (test tjjg=724) 9.0 K/ L 3.5-10.5 RED BLOOD CELL COUNT (BEAKER) (test xqak=250) 3.85 M/ L 4.63-6.08 HEMOGLOBIN (BEAKER) (test fiui=090) 9.8 GM/DL 13.7-17.5 HEMATOCRIT (BEAKER) (test gyte=037) 31.6 % 40.1-51.0 MEAN CORPUSCULAR VOLUME (BEAKER) (test hxhj=276) 82.1 fL 79.0-92.2 MEAN CORPUSCULAR HEMOGLOBIN (BEAKER) (test 25.5 pg 25.7-32.2 zuuw=683) MEAN CORPUSCULAR HEMOGLOBIN CONC (BEAKER) (test 31.0 GM/DL 32.3-36.5 sygf=770) RED CELL DISTRIBUTION WIDTH (BEAKER) (test 24.5 % 11.6-14.4 aajp=885) PLATELET COUNT (BEAKER) (test igle=058) 224 K/CU MM 150-450 MEAN PLATELET VOLUME (BEAKER) (test ldpl=352) 11.9 fL 9.4-12.4 NUCLEATED RED BLOOD CELLS (BEAKER) (test 0 /100 WBC 0-0 guut=464) NEUTROPHILS RELATIVE PERCENT (BEAKER) (test 73 % agtj=792) LYMPHOCYTES RELATIVE PERCENT (BEAKER) (test 14 % wppo=745) MONOCYTES RELATIVE PERCENT (BEAKER) (test 9 % fcft=490) EOSINOPHILS RELATIVE PERCENT (BEAKER) (test 3 % brml=790) BASOPHILS RELATIVE PERCENT (BEAKER) (test 0 % gvwe=167) NEUTROPHILS ABSOLUTE COUNT (BEAKER) (test 6.58 K/ L 1.78-5.38 mohu=262) LYMPHOCYTES ABSOLUTE COUNT (BEAKER) (test 1.27 K/ L 1.32-3.57 jupe=937) MONOCYTES ABSOLUTE COUNT (BEAKER) (test 0.78 K/ L 0.30-0.82 jtev=631) EOSINOPHILS ABSOLUTE COUNT (BEAKER) (test 0.29 K/ L 0.04-0.54 qigt=670) BASOPHILS ABSOLUTE COUNT (BEAKER) (test 0.03 K/ L 0.01-0.08 mgbv=303) IMMATURE GRANULOCYTES-RELATIVE PERCENT (BEAKER) 0 % 0-1 (test dqnr=7889) POCT-GLUCOSE [id number] 00:28:00 Test Item Value Reference Range Comments POC-GLUCOSE METER (BEAKER) 108 mg/dL 70-110 : TESTED AT [address] (test kotw=4736) [facility], [address]: Collection Development Librarian/Cloth Shrinker [id number] for SILVIO STROUD POCT-GLUCOSE [id number] 18:26:00 Test Item Value Reference Range Comments POC-GLUCOSE METER (BEAKER) 90 mg/dL 70-110 : TESTED AT [facility] [address] [facility] (test wmds=0506) [facility], [address]: Collection Development Librarian/Cloth Shrinker [id number] for ISABELA GILMORE BASIC METABOLIC [id number] 12:56:00 Test Item Value Reference Range Comments SODIUM (BEAKER) (test 149 meq/L 136-145 xorh=034) POTASSIUM (BEAKER) (test 3.9 meq/L 3.5-5.1 wzcp=734) CHLORIDE (BEAKER) (test 116 meq/L 98-107 svoe=436) CO2 (BEAKER) (test 28 meq/L 22-29 rovs=270) BLOOD UREA NITROGEN 59 mg/dL 7-21 (BEAKER) (test nkdb=775) CREATININE (BEAKER) (test 1.00 mg/dL 0.57-1.25 ybmn=050) GLUCOSE RANDOM (BEAKER) 112 mg/dL 70-105 (test nnva=546) CALCIUM (BEAKER) (test 7.9 mg/dL 8.4-10.2 qbue=597) EGFR (BEAKER) (test 75 mL/min/1.73 sq m ESTIMATED GFR IS NOT kjiy=5010) ACCURATE CREATININE CLEARANCE IN PREDICTING GLOMERULAR FILTRATION RATE. ESTIMATED GFR IS NOT APPLICABLE FOR DIALYSIS PATIENTS. Collection Development Librarian ID - PIAYA LPOCT-GLUCOSE [id number] 12:30:00 Test Item Value Reference Range Comments POC-GLUCOSE METER (BEAKER) 109 mg/dL 70-110 : TESTED AT [address] (test kbcw=9332) [facility], [address]: Collection Development Librarian/Cloth Shrinker [id number] for ISABELA GILMORE RAD, CHEST, 1 VIEW, NON [id number] 09:49:00Reason for exam:->ETT, chest tubesShould this be performed at the bedside?->YesFINAL REPORT Comparison: 03/28/2019 TECHNIQUE: Single view of the chest FINDINGS: Exam is limited as the lower chest is partially outside of the field of view. Interval removal ofendotracheal tube. It is uncertain if the right-sided pleural drainage catheter is in place since this portion of the chest is outside of the field of view. Remaining support lines and tubes grossly appear to be stable. No other significant change. No gross pneumothorax. Interstitial opacities bilaterally along with pleural effusions are grossly stable. Signed: Aiden Greer MDReport Verified Date/Time: 03/29/2019 09:49:18 Reading Location: [address] Transitional Reading Room POCT-GLUCOSE [id number] 06:12:00 Test Item Value Reference Range Comments POC-GLUCOSE METER (BEAKER) 115 mg/dL 70-110 : TESTED AT [facility] [address] (test yyqe=2689) [place], [address]: Collection Development Librarian/Cloth Shrinker [id number] for JESSICA BUSBY BASIC METABOLIC [id number] 04:51:00 Test Item Value Reference Range Comments SODIUM (BEAKER) (test 150 meq/L 136-145 dskq=621) POTASSIUM (BEAKER) (test 4.1 meq/L 3.5-5.1 umbt=402) CHLORIDE (BEAKER) (test 117 meq/L 98-107 oinv=931) CO2 (BEAKER) (test 30 meq/L 22-29 qvkc=562) BLOOD UREA NITROGEN 66 mg/dL 7-21 (BEAKER) (test xuol=194) CREATININE (BEAKER) (test 1.16 mg/dL 0.57-1.25 fxxk=235) GLUCOSE RANDOM (BEAKER) 114 mg/dL 70-105 (test akbq=560) CALCIUM (BEAKER) (test 7.9 mg/dL 8.4-10.2 dkzv=005) EGFR (BEAKER) (test 63 mL/min/1.73 sq m ESTIMATED GFR IS NOT bksn=4097) ACCURATE CREATININE CLEARANCE IN PREDICTING GLOMERULAR FILTRATION RATE. ESTIMATED GFR IS NOT APPLICABLE FOR DIALYSIS PATIENTS. Collection Development Librarian ID - PIAYA LCBC W/PLT COUNT & AUTO [id number] 04:44:00 Test Item Value Reference Range Comments WHITE BLOOD CELL COUNT (BEAKER) (test lamm=233) 9.6 K/ L 3.5-10.5 RED BLOOD CELL COUNT (BEAKER) (test jglk=063) 3.63 M/ L 4.63-6.08 HEMOGLOBIN (BEAKER) (test kpnb=340) 9.1 GM/DL 13.7-17.5 HEMATOCRIT (BEAKER) (test whfr=153) 29.3 % 40.1-51.0 MEAN CORPUSCULAR VOLUME (BEAKER) (test bsid=567) 80.7 fL 79.0-92.2 MEAN CORPUSCULAR HEMOGLOBIN (BEAKER) (test 25.1 pg 25.7-32.2 sjpr=247) MEAN CORPUSCULAR HEMOGLOBIN CONC (BEAKER) (test 31.1 GM/DL 32.3-36.5 rouh=308) RED CELL DISTRIBUTION WIDTH (BEAKER) (test 22.9 % 11.6-14.4 iuye=190) PLATELET COUNT (BEAKER) (test buqy=158) 223 K/CU MM 150-450 MEAN PLATELET VOLUME (BEAKER) (test qxmh=160) 11.7 fL 9.4-12.4 NUCLEATED RED BLOOD CELLS (BEAKER) (test 0 /100 WBC 0-0 rltp=667) NEUTROPHILS RELATIVE PERCENT (BEAKER) (test 73 % bdva=306) LYMPHOCYTES RELATIVE PERCENT (BEAKER) (test 13 % wkir=029) MONOCYTES RELATIVE PERCENT (BEAKER) (test 9 % mbgh=053) EOSINOPHILS RELATIVE PERCENT (BEAKER) (test 4 % xldm=672) BASOPHILS RELATIVE PERCENT (BEAKER) (test 0 % bsng=973) NEUTROPHILS ABSOLUTE COUNT (BEAKER) (test 6.96 K/ L 1.78-5.38 cdxf=859) LYMPHOCYTES ABSOLUTE COUNT (BEAKER) (test 1.28 K/ L 1.32-3.57 rwmf=714) MONOCYTES ABSOLUTE COUNT (BEAKER) (test 0.81 K/ L 0.30-0.82 jlud=505) EOSINOPHILS ABSOLUTE COUNT (BEAKER) (test 0.41 K/ L 0.04-0.54 gvge=778) BASOPHILS ABSOLUTE COUNT (BEAKER) (test 0.03 K/ L 0.01-0.08 qdum=195) IMMATURE GRANULOCYTES-RELATIVE PERCENT (BEAKER) 1 % 0-1 (test qsqh=0538) [id number] 04:43:00 Test Item Value Reference Range Comments PHOSPHORUS (BEAKER) (test qitm=509) 4.4 mg/dL 2.3-4.7 Collection Development Librarian ID - LCBECKY [id number] 04:43:00 Test Item Value Reference Range Comments MAGNESIUM (BEAKER) (test wqcw=959) 2.2 mg/dL 1.6-2.6 Collection Development Librarian ID - EMILIE [id number] 04:39:00 Test Item Value Reference Range Comments PARTIAL THROMBOPLASTIN TIME (BEAKER) (test 83.9 seconds 22.5-36.0 bweq=558) POCT-GLUCOSE [id number] 00:34:00 Test Item Value Reference Range Comments POC-GLUCOSE METER (BEAKER) 112 mg/dL 70-110 : TESTED AT [facility] [address] [facility] (test pqhl=7740) [facility], [address]: Collection Development Librarian/Cloth Shrinker [id number] for JESSICA BUSBY VANCOMYCIN LEVEL, [id number] 23:23:00 Test Item Value Reference Range Comments VANCOMYCIN TROUGH (BEAKER) (test jire=999) 17.0 ug/mL 10.0-20.0 Collection Development Librarian ID - [id number] 21:15:00 Test Item Value Reference Range Comments PARTIAL THROMBOPLASTIN TIME (BEAKER) (test 84.7 seconds 22.5-36.0 wzdu=357) POCT-GLUCOSE [id number] 17:46:00 Test Item Value Reference Range Comments POC-GLUCOSE METER (BEAKER) 110 mg/dL 70-110 : TESTED AT [facility] [address] [facility] (test vxon=8025) [facility], [address]: Collection Development Librarian/Cloth Shrinker [id number] for SLIME GRIFFIN BASIC METABOLIC [id number] 16:41:00 Test Item Value Reference Range Comments SODIUM (BEAKER) (test 149 meq/L 136-145 ugpl=268) POTASSIUM (BEAKER) (test 4.4 meq/L 3.5-5.1 vcgb=651) CHLORIDE (BEAKER) (test 115 meq/L 98-107 ulpj=906) CO2 (BEAKER) (test 32 meq/L 22-29 dhqc=716) BLOOD UREA NITROGEN 68 mg/dL 7-21 (BEAKER) (test crvm=930) CREATININE (BEAKER) (test 1.25 mg/dL 0.57-1.25 jtva=978) GLUCOSE RANDOM (BEAKER) 116 mg/dL 70-105 (test naan=228) CALCIUM (BEAKER) (test 7.8 mg/dL 8.4-10.2 rint=211) EGFR (BEAKER) (test 58 mL/min/1.73 sq m ESTIMATED GFR IS NOT zoxc=6166) ACCURATE CREATININE CLEARANCE IN PREDICTING GLOMERULAR FILTRATION RATE. ESTIMATED GFR IS NOT APPLICABLE FOR DIALYSIS PATIENTS. Collection Development Librarian ID - AAHAMIDANG, DRAINAGE TUBE CHANGE (GASTRO, NEPHRO OR BILIARY)03-28 14:57:00Reason for exam:->Right chest tube no longer in pleural space, please replaceFINAL REPORT Fluoroscopic guided replacement of a right chest tube. History: Patient's right chest tube has been retracted and is poorly draining.. Modality: Fluoroscopy Sedation: None Anesthesia: Two percent Lidocaine without epinephrine. Approach: Existing right chest tube Estimated blood loss: < 5 cc. Specimen: None. still operator helper: Nato Dang MD. Mica Miner Blasting: Lauren. Fluoroscopy Time: 0.5 min.Reference Air Kerma (Ka, r): 17.2 mGy. Technique: Informed written consent was obtained. Discussion of risks, benefits, and alternativeswere made with the patient's family. The patient's family expressed understanding and agreed to proceed. A universal timeout was performed prior to starting the procedure. All elements maximal sterile barrier technique was utilized for this procedure, including utilization of sterile scrub solution for skin prep, a large sterile sheet to cover the areas of the patient that were not prepped, and hand hygiene, mask, head covering, and sterile gown for performing radiologist and scrub technologist. A guidewire was inserted through the patient's existing right chest tube under fluoroscopic control and into the right pleural space. The existing chest tube was then removed over the guidewire. A new 8.5 Argentine Cook multipurpose drainage catheter was advanced over the guidewire and into the right pleural space. The guidewire was removed and the pigtail was locked. Serosanguineous fluid was aspirated.The catheter was connected to a atrium pleura vac and secured to patient's skin with 2-0 silk. The patient tolerated the procedure well without evidence of immediate competition. Impression: Technically successful and uncomplicated fluoroscopic guided exchange of a right pleural pigtail drainage catheter. Signed: Nato Dang MDReport Verified Date/Time: 03/28/2019 14:57:26 Reading Location: [place] [address] Angio Body Reading Room Electronically signed by: NATO DANG on 2019 02:57 [id number] 14:39:00 Test Item Value Reference Range Comments PARTIAL THROMBOPLASTIN TIME (BEAKER) (test 77.6 seconds 22.5-36.0 rwkf=847) POCT-GLUCOSE [id number] 13:05:00 Test Item Value Reference Range Comments POC-GLUCOSE METER (BEAKER) 96 mg/dL 70-110 : TESTED AT [facility] [address] (test anwn=0228) [place], [address]: Collection Development Librarian/Cloth Shrinker [id number] for SLIME GRIFFIN RAD, CHEST, 1 VIEW, NON [id number] 06:59:00Reason for exam:->ETT, chest tubesShould this be performed at the bedside?->YesFINAL REPORT RAD, CHEST, 1 VIEW, NON DEPT INDICATION: ETT, chest tubes COMPARISON: Prior day's exam FINDINGS: Portable frontal view of the chest. IMPRESSION: Support Lines: Stable. Lungs and pleura: Unchanged airspace and pleural opacities. Questionable trace right pneumothorax. No pneumothorax is visible on the left.Heart and mediastinum: Stable contours. Stable surgical changes.Additional findings: None. Signed: JR Jara Robert MDReport Verified Date/Time: 03/28/2019 06:59:41 Reading Location: [facility] Radiology Reading Room Electronically signed by: CHRISTIE JRAA on 06:59 [id number] 06:54:00 Test Item Value Reference Range Comments PARTIAL THROMBOPLASTIN TIME (BEAKER) (test 36.3 seconds 22.5-36.0 gnul=899) [id number] 05:09:00 Test Item Value Reference Range Comments PARTIAL THROMBOPLASTIN TIME (BEAKER) (test 111.4 seconds 22.5-36.0 cwot=498) [id number] 05:05:00 Test Item Value Reference Range Comments PHOSPHORUS (BEAKER) (test wwcb=574) 5.0 mg/dL 2.3-4.7 Collection Development Librarian ID - SANDRA [id number] 05:05:00 Test Item Value Reference Range Comments MAGNESIUM (BEAKER) (test doki=330) 2.2 mg/dL 1.6-2.6 Collection Development Librarian ID - SANDRA WBASIC METABOLIC [id number] 05:05:00 Test Item Value Reference Range Comments SODIUM (BEAKER) (test 146 meq/L 136-145 abzx=677) POTASSIUM (BEAKER) (test 4.7 meq/L 3.5-5.1 kqtc=535) CHLORIDE (BEAKER) (test 114 meq/L 98-107 jgkw=972) CO2 (BEAKER) (test 29 meq/L 22-29 ibsk=848) BLOOD UREA NITROGEN 74 mg/dL 7-21 (BEAKER) (test gvrq=228) CREATININE (BEAKER) (test 1.40 mg/dL 0.57-1.25 enig=782) GLUCOSE RANDOM (BEAKER) 123 mg/dL 70-105 (test kwzx=971) CALCIUM (BEAKER) (test 7.9 mg/dL 8.4-10.2 fhmh=211) EGFR (BEAKER) (test 51 mL/min/1.73 sq m ESTIMATED GFR IS NOT wutl=1095) ACCURATE CREATININE CLEARANCE IN PREDICTING GLOMERULAR FILTRATION RATE. ESTIMATED GFR IS NOT APPLICABLE FOR DIALYSIS PATIENTS. Collection Development Librarian ID - SANDRA WCBC W/PLT COUNT & AUTO [id number] 05:01:00 Test Item Value Reference Range Comments WHITE BLOOD CELL COUNT (BEAKER) (test idhh=482) 14.5 K/ L 3.5-10.5 RED BLOOD CELL COUNT (BEAKER) (test njxc=563) 3.98 M/ L 4.63-6.08 HEMOGLOBIN (BEAKER) (test ugxs=157) 10.1 GM/DL 13.7-17.5 HEMATOCRIT (BEAKER) (test lrkk=971) 31.2 % 40.1-51.0 MEAN CORPUSCULAR VOLUME (BEAKER) (test bkqf=531) 78.4 fL 79.0-92.2 MEAN CORPUSCULAR HEMOGLOBIN (BEAKER) (test 25.4 pg 25.7-32.2 hpim=500) MEAN CORPUSCULAR HEMOGLOBIN CONC (BEAKER) (test 32.4 GM/DL 32.3-36.5 ncjm=745) RED CELL DISTRIBUTION WIDTH (BEAKER) (test 22.4 % 11.6-14.4 stgb=764) PLATELET COUNT (BEAKER) (test cjtu=152) 272 K/CU MM 150-450 MEAN PLATELET VOLUME (BEAKER) (test cjuc=090) 11.9 fL 9.4-12.4 NUCLEATED RED BLOOD CELLS (BEAKER) (test 0 /100 WBC 0-0 fugm=976) NEUTROPHILS RELATIVE PERCENT (BEAKER) (test 76 % tzfm=585) LYMPHOCYTES RELATIVE PERCENT (BEAKER) (test 13 % ouun=736) MONOCYTES RELATIVE PERCENT (BEAKER) (test 8 % jjyk=474) EOSINOPHILS RELATIVE PERCENT (BEAKER) (test 3 % jnww=820) BASOPHILS RELATIVE PERCENT (BEAKER) (test 0 % hira=528) NEUTROPHILS ABSOLUTE COUNT (BEAKER) (test 10.93 K/ L 1.78-5.38 gvsq=495) LYMPHOCYTES ABSOLUTE COUNT (BEAKER) (test 1.82 K/ L 1.32-3.57 iaxc=172) MONOCYTES ABSOLUTE COUNT (BEAKER) (test 1.18 K/ L 0.30-0.82 evvf=103) EOSINOPHILS ABSOLUTE COUNT (BEAKER) (test 0.36 K/ L 0.04-0.54 pfim=525) BASOPHILS ABSOLUTE COUNT (BEAKER) (test 0.05 K/ L 0.01-0.08 hyxy=380) IMMATURE GRANULOCYTES-RELATIVE PERCENT (BEAKER) 1 % 0-1 (test szye=6205) POCT-GLUCOSE [id number] 00:25:00 Test Item Value Reference Range Comments POC-GLUCOSE METER (BEAKER) 114 mg/dL 70-110 : TESTED AT [facility] [address] [facility] (test jufj=6362) [facility], [address]: Collection Development Librarian/Cloth Shrinker [id number] for EDISON BENDER POCT-GLUCOSE [id number] 17:52:00 Test Item Value Reference Range Comments POC-GLUCOSE METER (BEAKER) 111 mg/dL 70-110 : TESTED AT [place] [id number] [facility] (test ghmi=2507) [facility], [address]: Collection Development Librarian/Cloth Shrinker [id number] for ELADIA GARCIA BASIC METABOLIC [id number] 17:02:00 Test Item Value Reference Range Comments SODIUM (BEAKER) (test 147 meq/L 136-145 eymy=258) POTASSIUM (BEAKER) (test 4.6 meq/L 3.5-5.1 fkfp=566) CHLORIDE (BEAKER) (test 113 meq/L 98-107 wqkn=854) CO2 (BEAKER) (test 32 meq/L 22-29 blzp=667) BLOOD UREA NITROGEN 73 mg/dL 7-21 (BEAKER) (test prdp=017) CREATININE (BEAKER) (test 1.31 mg/dL 0.57-1.25 vglx=123) GLUCOSE RANDOM (BEAKER) 117 mg/dL 70-105 (test juvz=250) CALCIUM (BEAKER) (test 7.9 mg/dL 8.4-10.2 hykp=117) EGFR (BEAKER) (test 55 mL/min/1.73 sq m ESTIMATED GFR IS NOT dgha=2061) ACCURATE CREATININE CLEARANCE IN PREDICTING GLOMERULAR FILTRATION RATE. ESTIMATED GFR IS NOT APPLICABLE FOR DIALYSIS PATIENTS. Collection Development Librarian ID - [id number] 12:34:00 Test Item Value Reference Range Comments PARTIAL THROMBOPLASTIN TIME (BEAKER) (test 82.8 seconds 22.5-36.0 sxhc=655) SPUTUM CULTURE + GRAM [id number] 11:50:00 Test Item Value Reference Range Comments CULTURE (BEAKER) (test ljxb=2472) See comment GRAM STAIN RESULT (BEAKER) (test 4+ WBCs jjwx=3618) GRAM STAIN RESULT (BEAKER) (test 0-5 epithelial cells lgji=927596) GRAM STAIN RESULT (BEAKER) (test No organisms seen wjms=538036) 2+ YeastNo Normal respiratory rigo presentPOCT-GLUCOSE [id number] 11:42:00 Test Item Value Reference Range Comments POC-GLUCOSE METER (BEAKER) 117 mg/dL 70-110 : Pt. refused rpt tst: TESTED (test zurb=6851) AT [address], [address]: Collection Development Librarian/Cloth Shrinker [id number] for ELADIA GARCIA BLOOD [id number] 11:00:00 Test Item Value Reference Range Comments CULTURE (BEAKER) (test mjyp=0752) No growth in 5 days BLOOD [id number] 11:00:00 Test Item Value Reference Range Comments CULTURE (BEAKER) (test zctl=9675) No growth in 5 days RAD, CHEST, 1 VIEW, NON [id number] 06:18:00Reason for exam:->ETT, chest tubesShould this be performed at the bedside?->YesFINAL REPORT RAD, CHEST, 1 VIEW, NON DEPT INDICATION: ETT, chest tubes COMPARISON: Prior day's exam FINDINGS: Portable frontal view of the chest. IMPRESSION: Support Lines: Stable. Lungs and pleura: Unchanged bilateral small pleural effusions and scattered interstitial opacities. No pneumothorax.Heart and mediastinum: Stable contours. Stable surgical changes.Additional findings: None. Signed: Tomasa Luqueeport Verified Date/Time: 03/27/2019 06:18:48 [id number] 06:00:00 Test Item Value Reference Range Comments PARTIAL THROMBOPLASTIN TIME (BEAKER) (test 82.3 seconds 22.5-36.0 rttf=033) BASIC METABOLIC [id number] 05:35:00 Test Item Value Reference Range Comments SODIUM (BEAKER) (test 145 meq/L 136-145 swxj=019) POTASSIUM (BEAKER) (test 4.4 meq/L 3.5-5.1 vckx=089) CHLORIDE (BEAKER) (test 112 meq/L 98-107 xtfw=394) CO2 (BEAKER) (test 26 meq/L 22-29 gugu=674) BLOOD UREA NITROGEN 79 mg/dL 7-21 (BEAKER) (test yrtf=777) CREATININE (BEAKER) (test 1.39 mg/dL 0.57-1.25 xwcz=395) GLUCOSE RANDOM (BEAKER) 120 mg/dL 70-105 (test krtw=194) CALCIUM (BEAKER) (test 7.9 mg/dL 8.4-10.2 gfgm=920) EGFR (BEAKER) (test 51 mL/min/1.73 sq m ESTIMATED GFR IS NOT rubb=1655) ACCURATE CREATININE CLEARANCE IN PREDICTING GLOMERULAR FILTRATION RATE. ESTIMATED GFR IS NOT APPLICABLE FOR DIALYSIS PATIENTS. Collection Development Librarian ID - ELISSA MSpecimen slightly [id number] 05:33:00 Test Item Value Reference Range Comments PHOSPHORUS (BEAKER) (test fogm=317) 4.7 mg/dL 2.3-4.7 Collection Development Librarian ID - ELISSA [id number] 05:33:00 Test Item Value Reference Range Comments MAGNESIUM (BEAKER) (test gfog=811) 2.2 mg/dL 1.6-2.6 Collection Development Librarian ID - ELISSA [facility] W/PLT COUNT & AUTO [id number] 05:19:00 Test Item Value Reference Range Comments WHITE BLOOD CELL COUNT (BEAKER) (test mcxk=725) 15.8 K/ L 3.5-10.5 RED BLOOD CELL COUNT (BEAKER) (test lwcc=965) 4.00 M/ L 4.63-6.08 HEMOGLOBIN (BEAKER) (test ldlj=881) 9.9 GM/DL 13.7-17.5 HEMATOCRIT (BEAKER) (test hjwo=846) 31.5 % 40.1-51.0 MEAN CORPUSCULAR VOLUME (BEAKER) (test qels=555) 78.8 fL 79.0-92.2 MEAN CORPUSCULAR HEMOGLOBIN (BEAKER) (test 24.8 pg 25.7-32.2 xqku=629) MEAN CORPUSCULAR HEMOGLOBIN CONC (BEAKER) (test 31.4 GM/DL 32.3-36.5 bpdr=822) RED CELL DISTRIBUTION WIDTH (BEAKER) (test 21.5 % 11.6-14.4 tush=135) PLATELET COUNT (BEAKER) (test ngtb=370) 266 K/CU MM 150-450 MEAN PLATELET VOLUME (BEAKER) (test sqws=514) 11.7 fL 9.4-12.4 NUCLEATED RED BLOOD CELLS (BEAKER) (test 0 /100 WBC 0-0 kdpl=278) NEUTROPHILS RELATIVE PERCENT (BEAKER) (test 77 % ilkp=255) LYMPHOCYTES RELATIVE PERCENT (BEAKER) (test 12 % jzqc=023) MONOCYTES RELATIVE PERCENT (BEAKER) (test 8 % lnnb=322) EOSINOPHILS RELATIVE PERCENT (BEAKER) (test 2 % zglt=650) BASOPHILS RELATIVE PERCENT (BEAKER) (test 0 % lbqs=375) NEUTROPHILS ABSOLUTE COUNT (BEAKER) (test 12.15 K/ L 1.78-5.38 mnmg=892) LYMPHOCYTES ABSOLUTE COUNT (BEAKER) (test 1.94 K/ L 1.32-3.57 bwsl=645) MONOCYTES ABSOLUTE COUNT (BEAKER) (test 1.24 K/ L 0.30-0.82 tgjb=029) EOSINOPHILS ABSOLUTE COUNT (BEAKER) (test 0.28 K/ L 0.04-0.54 gfsf=706) BASOPHILS ABSOLUTE COUNT (BEAKER) (test 0.05 K/ L 0.01-0.08 uuqr=638) IMMATURE GRANULOCYTES-RELATIVE PERCENT (BEAKER) 1 % 0-1 (test socx=4676) POCT-GLUCOSE [id number] 05:17:00 Test Item Value Reference Range Comments POC-GLUCOSE METER (BEAKER) 118 mg/dL 70-110 : TESTED AT [facility] [id number] [facility] (test vino=6048) [facility], [id number]: Collection Development Librarian/Cloth Shrinker [id number] for NEDA TEIXEIRA [id number] 20:41:00 Test Item Value Reference Range Comments PARTIAL THROMBOPLASTIN TIME (BEAKER) (test 36.4 seconds 22.5-36.0 inrm=009) POCT-GLUCOSE [id number] 18:31:00 Test Item Value Reference Range Comments POC-GLUCOSE METER (BEAKER) 97 mg/dL 70-110 : TESTED AT [place] [id number] [facility] (test pdyg=7239) [facility], [id number]: Collection Development Librarian/Cloth Shrinker [id number] for ISABELA GILMORE BASIC METABOLIC [id number] 18:22:00 Test Item Value Reference Range Comments SODIUM (BEAKER) (test 146 meq/L 136-145 wcio=212) POTASSIUM (BEAKER) (test 4.4 meq/L 3.5-5.1 ykcb=600) CHLORIDE (BEAKER) (test 112 meq/L 98-107 jrna=144) CO2 (BEAKER) (test 31 meq/L 22-29 haaf=528) BLOOD UREA NITROGEN 79 mg/dL 7-21 (BEAKER) (test dler=482) CREATININE (BEAKER) (test 1.49 mg/dL 0.57-1.25 qiza=212) GLUCOSE RANDOM (BEAKER) 124 mg/dL 70-105 (test rykk=847) CALCIUM (BEAKER) (test 7.9 mg/dL 8.4-10.2 jmaw=504) EGFR (BEAKER) (test 47 mL/min/1.73 sq m ESTIMATED GFR IS NOT wmnn=7383) ACCURATE CREATININE CLEARANCE IN PREDICTING GLOMERULAR FILTRATION RATE. ESTIMATED GFR IS NOT APPLICABLE FOR DIALYSIS PATIENTS. Collection Development Librarian ID - BSSpecimen slightly [id number] 13:23:00 Test Item Value Reference Range Comments PARTIAL THROMBOPLASTIN TIME (BEAKER) (test 40.6 seconds 22.5-36.0 yopj=566) POCT-GLUCOSE [id number] 12:06:00 Test Item Value Reference Range Comments POC-GLUCOSE METER (BEAKER) 113 mg/dL 70-110 : TESTED AT [facility] [address] (test znar=3038) [facility], [address]: Collection Development Librarian/Cloth Shrinker [id number] for ISABELA GILMORE [id number] 10:59:00 Test Item Value Reference Range Comments PARTIAL THROMBOPLASTIN TIME (BEAKER) (test 61.4 seconds 22.5-36.0 lumb=322) POCT-GLUCOSE [id number] 06:53:00 Test Item Value Reference Range Comments POC-GLUCOSE METER (BEAKER) 112 mg/dL 70-110 : TESTED AT [address] (test xxsw=6267) [facility], [address]: Collection Development Librarian/Cloth Shrinker [id number] for FAUSTO MITCHELL, CHEST, 1 VIEW, NON [id number] 05:01:00Reason for exam:->intubated w / empyemaShould this be performed at the bedside?->YesFINAL REPORT Chest one view. Clinical history: intubated w/ empyema Comparison : Chest radiograph 03/25/2019, 402:00 PM. Technique: A single frontal view of the chest was obtained. Findings: There are median sternotomy wires. Support lines and tubes are in satisfactory positions. The cardiomediastinal contours are stable. There are small loculated bilateral pleural effusions, mildly decreased on the left. There are bibasilar opacities which may represent atelectasis/or pneumonia. There is pulmonary vessel congestion. There is no pneumothorax. Signed: Nakia Goldstein MDReportVerified Date/Time: 03/26/2019 05:01:34 05 :01 [id number] 03:48:00 Test Item Value Reference Range Comments PHOSPHORUS (BEAKER) (test liue=355) 3.9 mg/dL 2.3-4.7 Collection Development Librarian ID - ELISSA [id number] 03:48:00 Test Item Value Reference Range Comments MAGNESIUM (BEAKER) (test tomd=558) 2.1 mg/dL 1.6-2.6 Collection Development Librarian ID - ELISSA MBASIC METABOLIC [id number] 03:48:00 Test Item Value Reference Range Comments SODIUM (BEAKER) (test 147 meq/L 136-145 vmoq=937) POTASSIUM (BEAKER) (test 4.4 meq/L 3.5-5.1 fjee=118) CHLORIDE (BEAKER) (test 112 meq/L 98-107 zcwd=734) CO2 (BEAKER) (test 31 meq/L 22-29 pkoc=469) BLOOD UREA NITROGEN 74 mg/dL 7-21 (BEAKER) (test qkht=027) CREATININE (BEAKER) (test 1.40 mg/dL 0.57-1.25 sriz=220) GLUCOSE RANDOM (BEAKER) 120 mg/dL 70-105 (test ouyt=133) CALCIUM (BEAKER) (test 8.0 mg/dL 8.4-10.2 nwlo=754) EGFR (BEAKER) (test 51 mL/min/1.73 sq m ESTIMATED GFR IS NOT bcnw=0811) ACCURATE CREATININE CLEARANCE IN PREDICTING GLOMERULAR FILTRATION RATE. ESTIMATED GFR IS NOT APPLICABLE FOR DIALYSIS PATIENTS. Collection Development Librarian ID - ELISSA MSpecimen slightly [id number] 03:23:00 Test Item Value Reference Range Comments PARTIAL THROMBOPLASTIN TIME (BEAKER) (test 98.7 seconds 22.5-36.0 fdfh=488) BLOOD GAS, [id number] 03:22:00 Test Item Value Reference Range Comments PH ARTERIAL (BEAKER) (test qubk=712) 7.48 7.35-7.45 PCO2 ARTERIAL (BEAKER) (test gfoq=240) 42 mmHg 35-45 PO2 ARTERIAL (BEAKER) (test lyyn=393) 128 mmHg 80-90 O2 SATURATION ARTERIAL (BEAKER) (test rnse=199) 98.7 % 96.0-97.0 HCO3 ARTERIAL (BEAKER) (test xrso=615) 30 mmol/L 21-29 BASE EXCESS ARTERIAL (BEAKER) (test sdul=230) 6.4 mmol/L -2.0-3.0 PATIENT TEMPERATURE (BEAKER) (test wzop=7845) 37.6 C FIO2 (BEAKER) (test wtaz=4815) 30.0 % CBC W/PLT COUNT & AUTO [id number] 03:14:00 Test Item Value Reference Range Comments WHITE BLOOD CELL COUNT (BEAKER) (test fxxs=225) 16.5 K/ L 3.5-10.5 RED BLOOD CELL COUNT (BEAKER) (test ysou=539) 4.07 M/ L 4.63-6.08 HEMOGLOBIN (BEAKER) (test nbud=176) 10.2 GM/DL 13.7-17.5 HEMATOCRIT (BEAKER) (test hbeo=608) 31.5 % 40.1-51.0 MEAN CORPUSCULAR VOLUME (BEAKER) (test dfvx=368) 77.4 fL 79.0-92.2 MEAN CORPUSCULAR HEMOGLOBIN (BEAKER) (test 25.1 pg 25.7-32.2 cjbp=591) MEAN CORPUSCULAR HEMOGLOBIN CONC (BEAKER) (test 32.4 GM/DL 32.3-36.5 gfbo=610) RED CELL DISTRIBUTION WIDTH (BEAKER) (test 20.6 % 11.6-14.4 ebos=031) PLATELET COUNT (BEAKER) (test olhm=638) 265 K/CU MM 150-450 MEAN PLATELET VOLUME (BEAKER) (test bqxg=296) 12.0 fL 9.4-12.4 NUCLEATED RED BLOOD CELLS (BEAKER) (test 0 /100 WBC 0-0 vudd=632) NEUTROPHILS RELATIVE PERCENT (BEAKER) (test 76 % birc=842) LYMPHOCYTES RELATIVE PERCENT (BEAKER) (test 12 % tuip=530) MONOCYTES RELATIVE PERCENT (BEAKER) (test 9 % itko=146) EOSINOPHILS RELATIVE PERCENT (BEAKER) (test 2 % esuu=912) BASOPHILS RELATIVE PERCENT (BEAKER) (test 0 % qyhu=680) NEUTROPHILS ABSOLUTE COUNT (BEAKER) (test 12.53 K/ L 1.78-5.38 xbxq=876) LYMPHOCYTES ABSOLUTE COUNT (BEAKER) (test 2.00 K/ L 1.32-3.57 ollf=920) MONOCYTES ABSOLUTE COUNT (BEAKER) (test 1.49 K/ L 0.30-0.82 diug=599) EOSINOPHILS ABSOLUTE COUNT (BEAKER) (test 0.24 K/ L 0.04-0.54 wfzm=585) BASOPHILS ABSOLUTE COUNT (BEAKER) (test 0.05 K/ L 0.01-0.08 lbnw=099) IMMATURE GRANULOCYTES-RELATIVE PERCENT (BEAKER) 1 % 0-1 (test uzyz=9064) POCT-GLUCOSE [id number] 00:13:00 Test Item Value Reference Range Comments POC-GLUCOSE METER (BEAKER) 115 mg/dL 70-110 : TESTED AT [facility] [address] (test phrz=9699) [facility], [address]: Collection Development Librarian/Cloth Shrinker [id number] for Barbara Reid BASIC METABOLIC [id number] 20:31:00 Test Item Value Reference Range Comments SODIUM (BEAKER) (test 148 meq/L 136-145 lgzl=501) POTASSIUM (BEAKER) (test 4.3 meq/L 3.5-5.1 jzlk=789) CHLORIDE (BEAKER) (test 112 meq/L 98-107 gbev=861) CO2 (BEAKER) (test 32 meq/L 22-29 ndsb=440) BLOOD UREA NITROGEN 74 mg/dL 7-21 (BEAKER) (test cupp=528) CREATININE (BEAKER) (test 1.44 mg/dL 0.57-1.25 jomh=434) GLUCOSE RANDOM (BEAKER) 129 mg/dL 70-105 (test xxlj=248) CALCIUM (BEAKER) (test 8.2 mg/dL 8.4-10.2 lkgt=405) EGFR (BEAKER) (test 49 mL/min/1.73 sq m ESTIMATED GFR IS NOT ugey=1915) ACCURATE CREATININE CLEARANCE IN PREDICTING GLOMERULAR FILTRATION RATE. ESTIMATED GFR IS NOT APPLICABLE FOR DIALYSIS PATIENTS. Collection Development Librarian ID - BSSpecimen slightly ictericCT, CHEST, WITHOUT [id number] 18:26:00FINAL REPORT CT of the Chest, abdomen and pelvis dated 03/25/2019 COMPARISON:March 20, 2019 Clinical information: Pleural effusion Comment: Axial images of the chest, abdomen, and pelvis were obtained from thoracic inlet to the pubic symphysis without GI or intravenous contrast. This exam was performed according to our departmental dose- optimization program, which includes automated exposure control, adjustment of the mA and/or kV according to patient size and/or use of interactive reconstruction technique. Heart is normal in size. Ascending thoracic aorta is enlargedmeasuring 5.2 cm in size. Descending thoracic aorta measures 2.6 cm. Atherosclerotic calcification is seen in the thoracic aorta and coronary arteries. Great vessels are unremarkable. No adenopathy in the mediastinum or perihilar region. Trachea and mainstem bronchi are patent. There is small left pleural effusion and moderate right pleural effusion. A pigtail chest tube has been placed on the left.There is interval decrease in the amount of flow bilateral pleural effusion more pronounced on the left. Subsegmental atelectasis is seen in right and both lower lobes. The rest of the lungs are clear.Liver is normal in size. Spleen is minimally enlarged measuring 12.1 x 5.7 x 10.9 cm. Enlarged collateral veins are seen in the splenic hilum. There is splenorenal shunt. No focal lesion is seen in theliver or the spleen. Gallbladder is contracted. No gallstone or biliary dilatation is noted. Pancreas and adrenals are unremarkable. Both kidneys are normal in size. No hydronephrosis, hydroureter, orurolithiasis is noted. A 5 mm hemorrhagic cyst is seen in the upper pole right kidney. The small andlarge bowel are unremarkable. Appendix is not visualized. Prostate is normal in size. The urinary bladder is contracted. There is nonspecific soft tissue stranding in the presacral pelvis. Atherosclerotic calcification is seen in the abdominal aorta and bilateral iliac arteries. Impression: 1. Interval decrease in the amount of bilateral pleural effusion.2. Splenomegaly.3. Portal hypertension with splenorenal shunt.4. Soft tissue stranding in the presacral pelvis.5. No loculated fluid collection in the abdomen or pelvis to suggest abscess.5. Ascending thoracic aortic aneurysm. Signed: [facility] Verified Date/ Time: 03/25/2019 18:26:29 Reading Location: [facility] C013Y CT Body Reading Room CT, [id number] 18:26:00FINAL REPORT CT of the Chest, abdomen and pelvis dated 03/25/2019 COMPARISON:March 20, 2019 Clinical information: Pleural effusion Comment: Axial images of the chest, abdomen, and pelvis were obtained from thoracic inlet to the pubic symphysis without GI or intravenous contrast. This exam was performed according to our departmental dose-optimization program, which includes automated exposure control, adjustment of the mA and/or kV according to patient size and/or use of interactive reconstruction technique. Heart is normal in size. Ascending thoracic aorta is enlargedmeasuring 5.2 cm in size. Descending thoracic aorta measures 2.6 cm. Atherosclerotic calcification is seen in the thoracic aorta and coronary arteries. Great vessels are unremarkable. No adenopathy in the mediastinum or perihilar region. Trachea and mainstem bronchi are patent. There is small left pleural effusion and moderate right pleural effusion. A pigtail chest tube has been placed on the left.There is interval decrease in the amount of flow bilateral pleural effusion more pronounced on the left. Subsegmental atelectasis is seen in right and both lower lobes. The rest of the lungs are clear.Liver is normal in size. Spleen is minimally enlarged measuring 12.1 x 5.7 x 10.9 cm. Enlarged collateral veins are seen in the splenic hilum. There is splenorenal shunt. No focal lesion is seen in theliver or the spleen. Gallbladder is contracted. No gallstone or biliary dilatation is noted. Pancreas and adrenals are unremarkable. Both kidneys are normal in size. No hydronephrosis, hydroureter, orurolithiasis is noted. A 5 mm hemorrhagic cyst is seen in the upper pole right kidney. The small andlarge bowel are unremarkable. Appendix is not visualized. Prostate is normal in size. The urinary bladder is contracted. There is nonspecific soft tissue stranding in the presacral pelvis. Atherosclerotic calcification is seen in the abdominal aorta and bilateral iliac arteries. Impression: 1. Interval decrease in the amount of bilateral pleural effusion.2. Splenomegaly.3. Portal hypertension with splenorenal shunt.4. Soft tissue stranding in the presacral pelvis.5. No loculated fluid collection in the abdomen or pelvis to suggest abscess.5. Ascending thoracic aortic aneurysm. Signed: Tomasa Foss MDReport Verified Date/ Time: 03/25/2019 18:26:29 Reading Location: [facility] C013Y CT Body Reading Room POCT- GLUCOSE [id number] 18:22:00 Test Item Value Reference Range Comments POC-GLUCOSE METER (BEAKER) 95 mg/dL 70-110 : TESTED AT [address] (test uopc=7159) [facility], [address]: Collection Development Librarian/Cloth Shrinker [id number] for ISABELA GILMORE RAD, CHEST, 1 VIEW, NON [id number] 16:20:00Reason for exam:->Central Line PlacementShould this be performed at the bedside?->YesFINAL REPORT Chest, portable AP view History: Central line placement Comparison: Earlier the same day at four 3:00 AM IMPRESSION: There is been interval insertion of a right internal jugular central venous catheter. The catheter tip terminates over the distal SVC. The endotracheal tube is in good position with the distal tip terminating approximately 3.2 cm above the shruthi. There is no pneumothorax. The heart is stably enlarged. Bilateral pleural effusions are present, right greater than left. A left basilar pigtail chest tube is in place. Signed: Nato Dang MDReport Verified Date/Time: 2019 16:20:19 Reading Location: [address] Consult Reading Room [id number] 15:56:00 Test Item Value Reference Range Comments PARTIAL THROMBOPLASTIN TIME (BEAKER) (test 83.0 seconds 22.5-36.0 sfua=782) BRONCHIAL CULTURE + GRAM [id number] 12:23:00 Test Item Value Reference Range Comments CULTURE (BEAKER) (test See comment jvsi=3383) GRAM STAIN RESULT (BEAKER) (test 4+ WBCs kbme=4911) GRAM STAIN RESULT (BEAKER) (test <1+ yeast with pseudohyphae sefd=915629) 2+ Yeast with feetNo Normal respiratory rigo presentBASIC METABOLIC [id number] 12:08:00 Test Item Value Reference Range Comments SODIUM (BEAKER) (test 148 meq/L 136-145 xmeg=075) POTASSIUM (BEAKER) (test 4.3 meq/L 3.5-5.1 eafn=270) CHLORIDE (BEAKER) (test 113 meq/L 98-107 jnxy=641) CO2 (BEAKER) (test 31 meq/L 22-29 ybpr=918) BLOOD UREA NITROGEN 71 mg/dL 7-21 (BEAKER) (test evvb=767) CREATININE (BEAKER) (test 1.30 mg/dL 0.57-1.25 tgak=621) GLUCOSE RANDOM (BEAKER) 118 mg/dL 70-105 (test bfev=644) CALCIUM (BEAKER) (test 8.0 mg/dL 8.4-10.2 ctay=367) EGFR (BEAKER) (test 56 mL/min/1.73 sq m ESTIMATED GFR IS NOT pjwa=2014) ACCURATE CREATININE CLEARANCE IN PREDICTING GLOMERULAR FILTRATION RATE. ESTIMATED GFR IS NOT APPLICABLE FOR DIALYSIS PATIENTS. Collection Development Librarian ID - LENNY BALBIROOD GAS, [id number] 12:00:00 Test Item Value Reference Range Comments PH ARTERIAL (BEAKER) (test qmnq=304) 7.48 7.35-7.45 PCO2 ARTERIAL (BEAKER) (test dokg=602) 43 mmHg 35-45 PO2 ARTERIAL (BEAKER) (test yilk=764) 247 mmHg 80-90 O2 SATURATION ARTERIAL (BEAKER) (test xkxh=054) 99.6 % 96.0-97.0 HCO3 ARTERIAL (BEAKER) (test nuhv=585) 31 mmol/L 21-29 BASE EXCESS ARTERIAL (BEAKER) (test nrgy=645) 6.6 mmol/L -2.0-3.0 PATIENT TEMPERATURE (BEAKER) (test bvjp=5979) 37.3 C FIO2 (BEAKER) (test isen=3352) 30.0 % POCT-GLUCOSE [id number] 11:51:00 Test Item Value Reference Range Comments POC-GLUCOSE METER (BEAKER) 114 mg/dL 70-110 : TESTED AT [facility] [address] [facility] [facility] (test zsdd=0139) [facility], [address]: Collection Development Librarian/Cloth Shrinker [id number] for GILMORE, ISABELA BODY FLUID CULTURE + GRAM [id number] 10:54:00 Test Item Value Reference Range Comments CULTURE (BEAKER) (test fpgm=6119) No growth GRAM STAIN RESULT (BEAKER) (test 2+ WBCs ydfj=6757) GRAM STAIN RESULT (BEAKER) (test No organisms seen xowp=95381) BODY FLUID CULTURE + GRAM [id number] 10:54:00 Test Item Value Reference Range Comments CULTURE (BEAKER) (test vkgi=1464) No growth GRAM STAIN RESULT (BEAKER) (test 1+ WBCs ekbt=8074) GRAM STAIN RESULT (BEAKER) (test No organisms seen bmry=55366) URINALYSIS W/ REFLEX URINE [id number] 10:03:00 Test Item Value Reference Range Comments COLOR (BEAKER) (test kxwu=622) Yellow CLARITY (BEAKER) (test lotl=894) Hazy SPECIFIC GRAVITY UA (BEAKER) (test wvyq=930) 1.018 1.001-1.035 PH UA (BEAKER) (test rkun=164) 5.5 5.0-8.0 PROTEIN UA (BEAKER) (test fysj=841) 50 mg/dL Negative GLUCOSE UA (BEAKER) (test cplv=196) Negative Negative KETONES UA (BEAKER) (test abtt=279) Negative Negative BILIRUBIN UA (BEAKER) (test jsil=170) Negative Negative BLOOD UA (BEAKER) (test qlai=237) Small Negative NITRITE UA (BEAKER) (test lkxq=989) Negative Negative LEUKOCYTE ESTERASE UA (BEAKER) (test vfgp=390) Large Negative UROBILINOGEN UA (BEAKER) (test bdcu=574) 6.0 mg/dL 0.2-1.0 RBC UA (BEAKER) (test zxkt=441) < /HPF WBC UA (BEAKER) (test ejpu=151) 54 /HPF BACTERIA (BEAKER) (test nyam=261) Few MUCUS (BEAKER) (test umph=7149) Few SQUAMOUS EPITHELIAL (BEAKER) (test szcb=064) < /HPF HYALINE CASTS (BEAKER) (test sjtt=215) 1 /LPF SOURCE(BEAKER) (test lktd=6900) Collection Development Librarian ID - [auto]Collection Development Librarian ID - [id number] 09:58:00 Test Item Value Reference Range Comments PARTIAL THROMBOPLASTIN TIME (BEAKER) (test 83.1 seconds 22.5-36.0 ihik=312) BLOOD [id number] 07:00:00 Test Item Value Reference Range Comments CULTURE (BEAKER) (test sfyh=2245) No growth in 5 days RAD, CHEST, 1 VIEW, NON [id number] 06:48:00Reason for exam:->intubated w / empyemaShould this be performed at the bedside?->YesFINAL REPORT RAD, CHEST, 1 VIEW, NON DEPT INDICATION: intubated w/ empyema COMPARISON: Exam from 10 hours prior FINDINGS: Portable frontal view of the chest. IMPRESSION: Support Lines: Stable endotracheal tube and enteric tube. Stable pigtail chest catheter at the left chest base. Lungs and pleura: Unchanged right basilar airspace opacities and small pleural effusion. Unchanged trace left pleural effusion with adjacent atelectasis or airspace infiltrate. No pneumothorax.Heart and mediastinum: Stable contours. Stable surgical changes.Additional findings: None. Signed: Tomasa Luque MDReport Verified Date/Time: 03/25/2019 06:48:46 POCT-GLUCOSE [id number] 06:17:00 Test Item Value Reference Range Comments POC-GLUCOSE METER (BEAKER) 101 mg/dL 70-110 : TESTED AT [address] (test gayr=2199) [facility], [address]: Collection Development Librarian/Cloth Shrinker [id number] for JACKSON BOLDEN CBC W/PLT COUNT & AUTO [id number] 04:23:00 Test Item Value Reference Range Comments WHITE BLOOD CELL COUNT (BEAKER) (test ldri=203) 16.5 K/ L 3.5-10.5 RED BLOOD CELL COUNT (BEAKER) (test snyt=439) 4.28 M/ L 4.63-6.08 HEMOGLOBIN (BEAKER) (test nuch=523) 10.6 GM/DL 13.7-17.5 HEMATOCRIT (BEAKER) (test oorz=113) 33.2 % 40.1-51.0 MEAN CORPUSCULAR VOLUME (BEAKER) (test jtaf=719) 77.6 fL 79.0-92.2 MEAN CORPUSCULAR HEMOGLOBIN (BEAKER) (test 24.8 pg 25.7-32.2 qhon=355) MEAN CORPUSCULAR HEMOGLOBIN CONC (BEAKER) (test 31.9 GM/DL 32.3-36.5 xggv=949) RED CELL DISTRIBUTION WIDTH (BEAKER) (test 21.1 % 11.6-14.4 embm=969) PLATELET COUNT (BEAKER) (test fmxq=405) 230 K/CU MM 150-450 MEAN PLATELET VOLUME (BEAKER) (test ivan=000) 12.8 fL 9.4-12.4 NUCLEATED RED BLOOD CELLS (BEAKER) (test 0 /100 WBC 0-0 fpvo=004) NEUTROPHILS RELATIVE PERCENT (BEAKER) (test 79 % nssl=329) LYMPHOCYTES RELATIVE PERCENT (BEAKER) (test 10 % zrtj=243) MONOCYTES RELATIVE PERCENT (BEAKER) (test 8 % akms=828) EOSINOPHILS RELATIVE PERCENT (BEAKER) (test 2 % vhin=724) BASOPHILS RELATIVE PERCENT (BEAKER) (test 0 % lxgg=560) NEUTROPHILS ABSOLUTE COUNT (BEAKER) (test 12.98 K/ L 1.78-5.38 sjoo=993) LYMPHOCYTES ABSOLUTE COUNT (BEAKER) (test 1.72 K/ L 1.32-3.57 xxhv=557) MONOCYTES ABSOLUTE COUNT (BEAKER) (test 1.33 K/ L 0.30-0.82 gqpk=096) EOSINOPHILS ABSOLUTE COUNT (BEAKER) (test 0.29 K/ L 0.04-0.54 kmfu=981) BASOPHILS ABSOLUTE COUNT (BEAKER) (test 0.05 K/ L 0.01-0.08 tkhu=797) IMMATURE GRANULOCYTES-RELATIVE PERCENT (BEAKER) 1 % 0-1 (test vpzd=0268) BLOOD [id number] 04:02:00 Test Item Value Reference Range Comments CULTURE (BEAKER) (test agth=2758) No growth in 5 days BASIC METABOLIC [id number] 03:59:00 Test Item Value Reference Range Comments SODIUM (BEAKER) (test 146 meq/L 136-145 kecz=879) POTASSIUM (BEAKER) (test 4.3 meq/L 3.5-5.1 hbyc=057) CHLORIDE (BEAKER) (test 112 meq/L 98-107 acne=602) CO2 (BEAKER) (test 29 meq/L 22-29 kxly=172) BLOOD UREA NITROGEN 72 mg/dL 7-21 (BEAKER) (test xdlx=602) CREATININE (BEAKER) (test 1.29 mg/dL 0.57-1.25 zvdw=413) GLUCOSE RANDOM (BEAKER) 113 mg/dL 70-105 (test jabx=085) CALCIUM (BEAKER) (test 7.8 mg/dL 8.4-10.2 qqpl=778) EGFR (BEAKER) (test 56 mL/min/1.73 sq m ESTIMATED GFR IS NOT cdjm=5008) ACCURATE CREATININE CLEARANCE IN PREDICTING GLOMERULAR FILTRATION RATE. ESTIMATED GFR IS NOT APPLICABLE FOR DIALYSIS PATIENTS. Collection Development Librarian ID - ELISSA MSpecimen slightly [id number] 03:57:00 Test Item Value Reference Range Comments PHOSPHORUS (BEAKER) (test vebt=534) 2.8 mg/dL 2.3-4.7 Collection Development Librarian ID - ELISSA [id number] 03:57:00 Test Item Value Reference Range Comments MAGNESIUM (BEAKER) (test ufhg=603) 2.0 mg/dL 1.6-2.6 Collection Development Librarian ID - ELISSA [id number] 03:30:00 Test Item Value Reference Range Comments PARTIAL THROMBOPLASTIN TIME (BEAKER) (test 63.6 seconds 22.5-36.0 wbpk=335) POCT-GLUCOSE [id number] 00:15:00 Test Item Value Reference Range Comments POC-GLUCOSE METER (BEAKER) 110 mg/dL 70-110 : TESTED AT [address] (test geky=5770) [facility], [address]: Collection Development Librarian/Cloth Shrinker [id number] for SUGU, RENETTAENAMOL [id number] 21:11:00 Test Item Value Reference Range Comments PARTIAL THROMBOPLASTIN TIME (BEAKER) (test 68.8 seconds 22.5-36.0 qlqb=704) BASIC METABOLIC [id number] 21:09:00 Test Item Value Reference Range Comments SODIUM (BEAKER) (test 147 meq/L 136-145 syrw=862) POTASSIUM (BEAKER) (test 4.3 meq/L 3.5-5.1 hmga=592) CHLORIDE (BEAKER) (test 111 meq/L 98-107 ufvb=666) CO2 (BEAKER) (test 33 meq/L 22-29 asiz=864) BLOOD UREA NITROGEN 66 mg/dL 7-21 (BEAKER) (test vaus=763) CREATININE (BEAKER) (test 1.44 mg/dL 0.57-1.25 uezv=718) GLUCOSE RANDOM (BEAKER) 121 mg/dL 70-105 (test zwml=354) CALCIUM (BEAKER) (test 8.3 mg/dL 8.4-10.2 fyiy=191) EGFR (BEAKER) (test 49 mL/min/1.73 sq m ESTIMATED GFR IS NOT pumt=5891) ACCURATE CREATININE CLEARANCE IN PREDICTING GLOMERULAR FILTRATION RATE. ESTIMATED GFR IS NOT APPLICABLE FOR DIALYSIS PATIENTS. Collection Development Librarian ID - JOSE milton ictericRAD, ABDOMEN/KUB, 1 VIEW [id number] 19:29:00Reason for exam:->NGT fell outAddendum BeginsREPORT STATUS:A Two views were obtained. Signed: Nova Salazar MDReport Verified Date/Time: 03/24/2019 19:29:02 Reading Location: [address] Consult Reading RoomAddendum EndsFINAL REPORT Abdomen. HISTORY: Nasogastric tube fell out. COMPARISON STUDY: None available FINDINGS: A single supine view the abdomen demonstrates a nasogastric tube in place, the tip projecting over the distal stomach. No dilated loops of bowel are seen. Degenerative changes are noted. This film is insensitive for the detection of free air. Signed: Nova Salazar MDReport Verified Date/Time: 19:24:17 Reading Location: [facility] C0[facility] Consult Reading Room POCT- GLUCOSE [id number] 18:19:00 Test Item Value Reference Range Comments POC-GLUCOSE METER (BEAKER) 97 mg/dL 70-110 : TESTED AT [address] (test eukx=2994) [facility], [address]: Collection Development Librarian/Cloth Shrinker UX=[id number] for GILMORE, ISABELA RAD, CHEST, 1 VIEW, NON [id number] 18:11:00Reason for exam:->Chest tube placement, possible dislodgementShould this be performed at the bedside?-> YesFINAL REPORT Portable chest. CLINICAL HISTORY: Chest tube placement, possibledislodgement. COMPARISON STUDY: March 24, 2019. FINDINGS: The cardiac silhouette is enlarged. Sternotomy wires are seen. The pulmonary parenchyma demonstrates a mild to moderate right-sided pleural effusion with adjacent atelectasis or consolidation. A left pigtail catheter chest tube remains more medially situated but still projecting over the thorax on this single view. The nasogastric tube and endotracheal tube are unchanged. No pneumothorax is seen. Degenerative changes are noted. IMPRESSION: Left-sided pigtail catheter more medially situated than on previous but still projecting over the thorax on this single view. No other significant change. Signed: Nova Salazar MDReport Verified Date/Time: 03/24/2019 18:11:57 Reading Location: [address] Consult Reading Room BODY FLUID CULTURE + GRAM [id number] 16:09:00 Test Item Value Reference Range Comments CULTURE (BEAKER) (test pquc=2171) No growth GRAM STAIN RESULT (BEAKER) (test 1+ White blood cells seen gybi=1682) GRAM STAIN RESULT (BEAKER) (test No organisms seen jcsl=[id number]) BRONCHIAL CULTURE + GRAM [id number] 14:05:00 Test Item Value Reference Range Comments CULTURE (BEAKER) (test mmby=7968) No growth GRAM STAIN RESULT (BEAKER) (test <1+ WBCs mfxf=7412) GRAM STAIN RESULT (BEAKER) (test No organisms seen zwqz=[id number]) BASIC METABOLIC [id number] 13:09:00 Test Item Value Reference Range Comments SODIUM (BEAKER) (test 146 meq/L 136-145 rmej=886) POTASSIUM (BEAKER) (test 4.3 meq/L 3.5-5.1 ucik=532) CHLORIDE (BEAKER) (test 112 meq/L 98-107 mfuv=233) CO2 (BEAKER) (test 31 meq/L 22-29 lsjf=243) BLOOD UREA NITROGEN 63 mg/dL 7-21 (BEAKER) (test xhzx=132) CREATININE (BEAKER) (test 1.42 mg/dL 0.57-1.25 uiao=940) GLUCOSE RANDOM (BEAKER) 119 mg/dL 70-105 (test smnm=156) CALCIUM (BEAKER) (test 8.1 mg/dL 8.4-10.2 hnxh=633) EGFR (BEAKER) (test 50 mL/min/1.73 sq m ESTIMATED GFR IS NOT etyu=8927) ACCURATE CREATININE CLEARANCE IN PREDICTING GLOMERULAR FILTRATION RATE. ESTIMATED GFR IS NOT APPLICABLE FOR DIALYSIS PATIENTS. Collection Development Librarian ID - SONIA [id number] 13:04:00 Test Item Value Reference Range Comments PARTIAL THROMBOPLASTIN TIME (BEAKER) (test 58.9 seconds 22.5-36.0 yzys=622) EEG EXTENDED MONITORING, 40-60 [id number] 12:32:00For STAT EEG- after 5 PM weekdays, weekends and holidays, page the on-call EEG TechReason for exam:-& gt;Concern for Subclinical StatusShould this be performed at the bedside?-> YesDate(s) of EE03/24/2019 DATE OF REPORT: 03/24/2019ACC: [id number] Number: [id number] Location: Inpatient ICUStart time: 03/24/2019 10:42Stop time : 03/24/2019 11:23ICD-10: R56.9 CPT Code: 22648 HISTORY: 63 y.o. male with hypertension, diastolic heart failure, chronic kidney disease who was transferred to [facility] for effusions and remains altered with concern for subclinical status epilepticus. MEDICATIONS THAT COULD AFFECT EEG: Dexmedetomidine TECHNICAL SUMMARY: This is a digital video-EEG recorded with 32 input channels reviewed with bipolar and referential montages using the modified combinatorial system nomenclature. DESCRIPTION OF RECORD: During the maximally stimulated state, the background is symmetric and predominately populated with 2-6 Hz activity. There was no posterior dominant rhythm seen. The EEG background is spontaneously reactive and reactive to external stimulation. Poorly formed symmetric sleep structures are sporadically seen. There are occasional generalized broad based discharges with frontocentral predominance that occur with a periodic pattern of 1 to 1.5cycles per second. SIGNIFICANT VIDEO EVENTS: None SIGNIFICANT ELECTROCARDIOGRAM EVENTS: Irregularlyirregular, average HR 85. HV: Hyperventilation was not performed. PHOTIC STIMULATION: Photic stimulation was done from 1-33 Hz; no photic driving was seen; photoparoxysmal responses were absent. IMPRESSION: This is an abnormal video EEG due to: 1) Generalized slowing of background rhythms, mild-moderate. 2) Occasional, generalized periodic discharges (1 - 1.5 cycles per second) CLINICAL CORRELATION: Generalized slowing as seen in this record is consistent with an etiology non-specific mild to moderate encephalopathy. Generalized periodic discharges are a non-specific findings or cortical irritability and can be seen in the setting of ischemia, inflammation, aftermath of earlier seizure activity, other [employer] insult, or toxic- metabolic derangements. An EEG without epileptiform discharges does not exclude the possibility of epilepsy. If the clinical suspicion of epilepsy remains, consider additional EEG recordings. Nando Metz MDNeurophysiology Fellow Elia Martinez M.D., FARIDA, FAAN, FAESProfessor of Neurology, [facility]. Vincent Medical CenterDirector, [facility] Epilepsy CenterJohn Saab [facility] at [place], [place] POCT-GLUCOSE [id number] 12:29:00 Test Item Value Reference Range Comments POC-GLUCOSE METER (BEAKER) 109 mg/dL 70-110 : TESTED AT [address] (test ilin=7921) [facility], [address]: Collection Development Librarian/Cloth Shrinker [id number] for ISABELA GILMORE BLOOD GAS, [id number] 12:11:00 Test Item Value Reference Range Comments PH ARTERIAL (BEAKER) (test obqs=748) 7.47 7.35-7.45 PCO2 ARTERIAL (BEAKER) (test mnyh=486) 46 mmHg 35-45 PO2 ARTERIAL (BEAKER) (test mzcb=161) 96 mmHg 80-90 O2 SATURATION ARTERIAL (BEAKER) (test uuqj=544) 97.7 % 96.0-97.0 HCO3 ARTERIAL (BEAKER) (test qzxy=134) 33 mmol/L 21-29 BASE EXCESS ARTERIAL (BEAKER) (test tllg=312) 7.9 mmol/L -2.0-3.0 PATIENT TEMPERATURE (BEAKER) (test vhqj=8332) 36.8 C FIO2 (BEAKER) (test djbn=1255) 30.0 % POCT-GLUCOSE [id number] 06:09:00 Test Item Value Reference Range Comments POC-GLUCOSE METER (BEAKER) 122 mg/dL 70-110 : TESTED AT [address] (test dsnp=2257) [facility], [address]: Collection Development Librarian/Cloth Shrinker [id number] for EDISON BENDER BLOOD GAS, [id number] 05:35:00 Test Item Value Reference Range Comments PH ARTERIAL (BEAKER) (test nzlh=169) 7.50 7.35-7.45 PCO2 ARTERIAL (BEAKER) (test cphe=521) 40 mmHg 35-45 PO2 ARTERIAL (BEAKER) (test ofqu=157) 107 mmHg 80-90 O2 SATURATION ARTERIAL (BEAKER) (test hdek=026) 98.3 % 96.0-97.0 HCO3 ARTERIAL (BEAKER) (test tfvp=978) 31 mmol/L 21-29 BASE EXCESS ARTERIAL (BEAKER) (test ajbv=438) 6.9 mmol/L -2.0-3.0 PATIENT TEMPERATURE (BEAKER) (test pnhw=6857) 37.0 C FIO2 (BEAKER) (test gjmh=1418) 30.0 % [id number] 05:09:00 Test Item Value Reference Range Comments PHOSPHORUS (BEAKER) (test xmoc=177) 3.2 mg/dL 2.3-4.7 Collection Development Librarian ID - SANDRA [id number] 05:09:00 Test Item Value Reference Range Comments MAGNESIUM (BEAKER) (test rklk=751) 1.9 mg/dL 1.6-2.6 Collection Development Librarian ID - SANDRA WBASIC METABOLIC [id number] 05:09:00 Test Item Value Reference Range Comments SODIUM (BEAKER) (test 147 meq/L 136-145 rixx=463) POTASSIUM (BEAKER) (test 4.2 meq/L 3.5-5.1 bveh=414) CHLORIDE (BEAKER) (test 114 meq/L 98-107 byco=642) CO2 (BEAKER) (test 30 meq/L 22-29 htyz=126) BLOOD UREA NITROGEN 61 mg/dL 7-21 (BEAKER) (test wokw=084) CREATININE (BEAKER) (test 1.52 mg/dL 0.57-1.25 upib=915) GLUCOSE RANDOM (BEAKER) 120 mg/dL 70-105 (test wwqb=614) CALCIUM (BEAKER) (test 8.1 mg/dL 8.4-10.2 bhad=606) EGFR (BEAKER) (test 46 mL/min/1.73 sq m ESTIMATED GFR IS NOT lgph=9583) ACCURATE CREATININE CLEARANCE IN PREDICTING GLOMERULAR FILTRATION RATE. ESTIMATED GFR IS NOT APPLICABLE FOR DIALYSIS PATIENTS. Collection Development Librarian ID Sultana FLORES WSpecimen slightly [id number] 04:59:00 Test Item Value Reference Range Comments PARTIAL THROMBOPLASTIN TIME (BEAKER) (test 61.1 seconds 22.5-36.0 ahrd=817) CBC W/PLT COUNT & AUTO [id number] 04:52:00 Test Item Value Reference Range Comments WHITE BLOOD CELL COUNT (BEAKER) (test pkwl=281) 18.3 K/ L 3.5-10.5 RED BLOOD CELL COUNT (BEAKER) (test wugh=838) 4.19 M/ L 4.63-6.08 HEMOGLOBIN (BEAKER) (test qgme=476) 10.1 GM/DL 13.7-17.5 HEMATOCRIT (BEAKER) (test bfjz=548) 32.3 % 40.1-51.0 MEAN CORPUSCULAR VOLUME (BEAKER) (test inwx=306) 77.1 fL 79.0-92.2 MEAN CORPUSCULAR HEMOGLOBIN (BEAKER) (test 24.1 pg 25.7-32.2 hzqf=112) MEAN CORPUSCULAR HEMOGLOBIN CONC (BEAKER) (test 31.3 GM/DL 32.3-36.5 etlk=160) RED CELL DISTRIBUTION WIDTH (BEAKER) (test 19.8 % 11.6-14.4 ixym=886) PLATELET COUNT (BEAKER) (test chvf=541) 252 K/CU MM 150-450 MEAN PLATELET VOLUME (BEAKER) (test szmp=467) 12.2 fL 9.4-12.4 NUCLEATED RED BLOOD CELLS (BEAKER) (test 0 /100 WBC 0-0 rgxj=849) NEUTROPHILS RELATIVE PERCENT (BEAKER) (test 82 % uijk=074) LYMPHOCYTES RELATIVE PERCENT (BEAKER) (test 9 % sber=671) MONOCYTES RELATIVE PERCENT (BEAKER) (test 8 % ntwd=817) EOSINOPHILS RELATIVE PERCENT (BEAKER) (test 1 % kocd=809) BASOPHILS RELATIVE PERCENT (BEAKER) (test 0 % fiqc=701) NEUTROPHILS ABSOLUTE COUNT (BEAKER) (test 15.00 K/ L 1.78-5.38 skvp=426) LYMPHOCYTES ABSOLUTE COUNT (BEAKER) (test 1.56 K/ L 1.32-3.57 fxnx=381) MONOCYTES ABSOLUTE COUNT (BEAKER) (test 1.37 K/ L 0.30-0.82 qhzu=018) EOSINOPHILS ABSOLUTE COUNT (BEAKER) (test 0.17 K/ L 0.04-0.54 imld=725) BASOPHILS ABSOLUTE COUNT (BEAKER) (test 0.04 K/ L 0.01-0.08 tgit=994) IMMATURE GRANULOCYTES-RELATIVE PERCENT (BEAKER) 1 % 0-1 (test ocnl=8295) RAD, CHEST, 1 VIEW, NON [id number] 03:57:00Reason for exam:->intubated w / empyemaShould this be performed at the bedside?->YesFINAL REPORT RAD, CHEST, 1 VIEW, NON DEPT INDICATION: intubated w/ empyema COMPARISON: Prior day's exam FINDINGS: Portable frontal view of the chest. IMPRESSION: Support Lines: Stable. Lungs and pleura: Unchanged airspace and pleural opacities given variation in positioning. No pneumothorax.Heart and mediastinum: Stable contours. Additional findings: None. Signed: Tomasa Luque MDReport Verified Date/Time: 03/24/2019 03:57:49 VANCOMYCIN LEVEL, [id number] 01:53:00 Test Item Value Reference Range Comments VANCOMYCIN TROUGH (BEAKER) (test fljk=606) 17.9 ug/mL 10.0-20.0 Collection Development Librarian ID - SANDRA ALVAREZT, BRAIN, WITHOUT [id number] 01:31:00FINAL REPORT EXAM: CT head without contrast. CLINICAL HISTORY: acute encephalopathy COMPARISON: Head CT 01/22/2019 TECHNIQUE: CT images of the head were obtained without intravenous contrast. This exam was performed according to our departmental dose optimization program whichincludes automated exposure control, adjustment of the mA and/or kV according to patient's size and/or use of iterative reconstructive technique. FINDINGS: There is generalized parenchymal atrophy.There is a chronic lacunar infarct in the right centrum semiovale. There are mild white matter microvascular ischemic changes. There is intracranial calcific atherosclerosis.There is no acute intracranial hemorrhage , extra-axial fluid collection, mass effect, herniation, hydrocephalus or large demarcated acute territorial infarct. The basal cisterns are patent. The visualized orbits are normal. There areindwelling endotracheal and nasogastric tubes. There is mild sphenoid sinus mucosal thickening. Thevisualized tympanomastoid cavities are clear. The skull base and calvarium are intact. IMPRESSION:Mild white matter microvascular ischemic changes. Chronic right centrum semiovale lacunar infarct. No CT evidence of an acute intracranial process. MRI may be performed for further evaluation if clinical suspicion for acute intracranial pathology persists. Signed: Nakia Goldstein MDReport Verified Date/Time: 03/24/2019 01:31:09 POCT-GLUCOSE [id number] 00:17:00 Test Item Value Reference Range Comments POC-GLUCOSE METER (BEAKER) 122 mg/dL 70-110 : TESTED AT [facility] [address] (test zsac=1996) [facility], [address]: Collection Development Librarian/Cloth Shrinker [id number] for YUILA EDISON BASIC METABOLIC [id number] 21:04:00 Test Item Value Reference Range Comments SODIUM (BEAKER) (test 146 meq/L 136-145 eifg=957) POTASSIUM (BEAKER) (test 4.2 meq/L 3.5-5.1 ezuz=383) CHLORIDE (BEAKER) (test 111 meq/L 98-107 xyan=175) CO2 (BEAKER) (test 29 meq/L 22-29 hmun=101) BLOOD UREA NITROGEN 57 mg/dL 7-21 (BEAKER) (test sdye=872) CREATININE (BEAKER) (test 1.55 mg/dL 0.57-1.25 zxqi=820) GLUCOSE RANDOM (BEAKER) 116 mg/dL 70-105 (test nubl=320) CALCIUM (BEAKER) (test 7.8 mg/dL 8.4-10.2 kera=333) EGFR (BEAKER) (test 45 mL/min/1.73 sq m ESTIMATED GFR IS NOT pxyc=9666) ACCURATE CREATININE CLEARANCE IN PREDICTING GLOMERULAR FILTRATION RATE. ESTIMATED GFR IS NOT APPLICABLE FOR DIALYSIS PATIENTS. Collection Development Librarian ID - Nicholas milton ictericBASIC METABOLIC [id number] 16:30 :00 Test Item Value Reference Range Comments SODIUM (BEAKER) (test 148 meq/L 136-145 mpam=437) POTASSIUM (BEAKER) (test 4.2 meq/L 3.5-5.1 aasp=074) CHLORIDE (BEAKER) (test 111 meq/L 98-107 ztgp=892) CO2 (BEAKER) (test 32 meq/L 22-29 miow=480) BLOOD UREA NITROGEN 56 mg/dL 7-21 (BEAKER) (test qybx=412) CREATININE (BEAKER) (test 1.60 mg/dL 0.57-1.25 obbp=783) GLUCOSE RANDOM (BEAKER) 117 mg/dL 70-105 (test kzap=328) CALCIUM (BEAKER) (test 7.9 mg/dL 8.4-10.2 ialu=307) EGFR (BEAKER) (test 44 mL/min/1.73 sq m ESTIMATED GFR IS NOT xdxg=9628) ACCURATE CREATININE CLEARANCE IN PREDICTING GLOMERULAR FILTRATION RATE. ESTIMATED GFR IS NOT APPLICABLE FOR DIALYSIS PATIENTS. Collection Development Librarian ANGELI MARQUEZ WHEPATIC FUNCTION [id number] 16:22:00 Test Item Value Reference Range Comments TOTAL PROTEIN (BEAKER) (test tflb=977) 5.3 gm/dL 6.0-8.3 ALBUMIN (BEAKER) (test kjzd=3103) 2.4 g/dL 3.5-5.0 BILIRUBIN TOTAL (BEAKER) (test mvye=756) 2.6 mg/dL 0.2-1.2 BILIRUBIN DIRECT (BEAKER) (test jgjw=137) 1.7 mg/dL 0.1-0.5 ALKALINE PHOSPHATASE (BEAKER) (test yxam=162) 59 U/L 40-150 AST (SGOT) (BEAKER) (test gven=553) 24 U/L 5-34 ALT (SGPT) (BEAKER) (test yiix=841) 7 U/L 6-55 Collection Development Librarian ANGELI MARQUEZ [id number] 16:05:00 Test Item Value Reference Range Comments AMMONIA (BEAKER) (test owsp=646) 29 mol/L 18-72 Collection Development Librarian ANGELI MARQUEZ WMRSA [id number] 11:27:00 Test Item Value Reference Range Comments CULTURE (BEAKER) (test iwxv=7173) No MRSA isolated CBC W/PLT COUNT & AUTO [id number] 10:18:00 Test Item Value Reference Range Comments WHITE BLOOD CELL COUNT (BEAKER) (test bzkv=333) 24.4 K/ L 3.5-10.5 RED BLOOD CELL COUNT (BEAKER) (test jgeo=802) 4.32 M/ L 4.63-6.08 HEMOGLOBIN (BEAKER) (test nyjz=514) 10.4 GM/DL 13.7-17.5 HEMATOCRIT (BEAKER) (test jxiz=866) 33.1 % 40.1-51.0 MEAN CORPUSCULAR VOLUME (BEAKER) (test apem=206) 76.6 fL 79.0-92.2 MEAN CORPUSCULAR HEMOGLOBIN (BEAKER) (test 24.1 pg 25.7-32.2 vpfu=345) MEAN CORPUSCULAR HEMOGLOBIN CONC (BEAKER) (test 31.4 GM/DL 32.3-36.5 xvkg=837) RED CELL DISTRIBUTION WIDTH (BEAKER) (test 19.4 % 11.6-14.4 gbso=070) PLATELET COUNT (BEAKER) (test awsc=071) 250 K/CU MM 150-450 MEAN PLATELET VOLUME (BEAKER) (test inyc=461) 11.9 fL 9.4-12.4 NUCLEATED RED BLOOD CELLS (BEAKER) (test 0 /100 WBC 0-0 rxqr=218) (CELLAVISION MANUAL DIFF)[id number] 10:18:00 Test Item Value Reference Range Comments NEUTROPHILS - REL (CELLAVISION)(BEAKER) (test 93 % dsen=3156) LYMPHOCYTES - REL (CELLAVISION)(BEAKER) (test 4 % pdzn=4800) MONOCYTES - REL (CELLAVISION)(BEAKER) (test 2 % cpvu=7826) ATYPICAL LYMPHOCYTES - REL (CELLAVISION)(BEAKER) 1 % 0-0 (test xlle=0094) NEUTROPHILS - ABS (CELLAVISION)(BEAKER) (test 22.69 K/ul 1.78-5.38 zkss=6635) LYMPHOCYTES - ABS (CELLAVISION)(BEAKER) (test 0.98 K/ul 1.32-3.57 ooer=0174) MONOCYTES - ABS (CELLAVISION)(BEAKER) (test 0.49 K/uL 0.30-0.82 qrkp=4994) ATYPICAL LYMPHOCYTES - ABS (CELLAVISION)(BEAKER) 0.24 K/uL 0.00-0.00 (test ewsk=6039) TOTAL COUNTED (BEAKER) (test fbbm=8079) 100 WBC MORPHOLOGY (BEAKER) (test uxse=422) Normal PLT MORPHOLOGY (BEAKER) (test bvff=142) Normal ANISOCYTOSIS (BEAKER) (test ynpe=667) 1+ few POIKILOCYTES (BEAKER) (test hham=205) 1+ few OVALOCYTES (BEAKER) (test gdos=639) 1+ few BAN CELLS (BEAKER) (test bpfo=096) 1+ few ARTIFACT (CELLAVISION)(BEAKER) (test wmhw=7330) Present PLATELET CONCENTRATION (CELLAVISION)(BEAKER) Adequate (test cqut=0827) Collection Development Librarian ID - Mariela OverholtUser comments: Slide comments:SPIN/CONCENTRATION [id number] 10:03:00 Test Item Value Reference Range Comments CONCENTRATION CHARGED (BEAKER) (test gldf=0425) Done SPIN/CONCENTRATION [id number] 10:03:00 Test Item Value Reference Range Comments CONCENTRATION CHARGED (BEAKER) (test ihpz=7409) Done SPIN/CONCENTRATION [id number] 10:03:00 Test Item Value Reference Range Comments CONCENTRATION CHARGED (BEAKER) (test cwwh=7017) Done [id number] 07:00:00 Test Item Value Reference Range Comments PARTIAL THROMBOPLASTIN TIME (BEAKER) (test 70.1 seconds 22.5-36.0 ihil=577) [id number] 06:46:00 Test Item Value Reference Range Comments PHOSPHORUS (BEAKER) (test qtqt=556) 2.8 mg/dL 2.3-4.7 Collection Development Librarian ID - SANDRA [id number] 06:46:00 Test Item Value Reference Range Comments MAGNESIUM (BEAKER) (test sbqt=931) 1.9 mg/dL 1.6-2.6 Collection Development Librarian ID - SANDRA WBASIC METABOLIC [id number] 06:46:00 Test Item Value Reference Range Comments SODIUM (BEAKER) (test 146 meq/L 136-145 rmud=454) POTASSIUM (BEAKER) (test 3.7 meq/L 3.5-5.1 ywkv=241) CHLORIDE (BEAKER) (test 110 meq/L 98-107 ppeq=108) CO2 (BEAKER) (test 30 meq/L 22-29 jvgz=871) BLOOD UREA NITROGEN 51 mg/dL 7-21 (BEAKER) (test mpae=172) CREATININE (BEAKER) (test 1.50 mg/dL 0.57-1.25 hnvb=762) GLUCOSE RANDOM (BEAKER) 138 mg/dL 70-105 (test fnib=068) CALCIUM (BEAKER) (test 8.0 mg/dL 8.4-10.2 jjhj=654) EGFR (BEAKER) (test 47 mL/min/1.73 sq m ESTIMATED GFR IS NOT rmxn=5873) ACCURATE CREATININE CLEARANCE IN PREDICTING GLOMERULAR FILTRATION RATE. ESTIMATED GFR IS NOT APPLICABLE FOR DIALYSIS PATIENTS. Collection Development Librarian ID - SANDRA SEWELLlolananda slightly ictericBLOOD GAS, [id number] 06: 18:00 Test Item Value Reference Range Comments PH ARTERIAL (BEAKER) (test pqka=351) 7.53 7.35-7.45 PCO2 ARTERIAL (BEAKER) (test gndh=357) 38 mmHg 35-45 PO2 ARTERIAL (BEAKER) (test cfwl=313) 83 mmHg 80-90 O2 SATURATION ARTERIAL (BEAKER) (test qjub=367) 97.2 % 96.0-97.0 HCO3 ARTERIAL (BEAKER) (test ywfh=628) 31 mmol/L 21-29 BASE EXCESS ARTERIAL (BEAKER) (test nnsb=176) 7.8 mmol/L -2.0-3.0 PATIENT TEMPERATURE (BEAKER) (test xkak=3256) 37.0 C FIO2 (BEAKER) (test kgmu=7515) 30.0 % POCT-GLUCOSE [id number] 05:36:00 Test Item Value Reference Range Comments POC-GLUCOSE METER (BEAKER) 122 mg/dL 70-110 : TESTED AT [facility] [address] (test nrxm=1181) [facility], [address]: Collection Development Librarian/Cloth Shrinker XM=[id number] for EDISON BENDER [id number] 00:47:00 Test Item Value Reference Range Comments PARTIAL THROMBOPLASTIN TIME (BEAKER) (test 62.9 seconds 22.5-36.0 lpnn=620) POCT-GLUCOSE [id number] 00:39:00 Test Item Value Reference Range Comments POC-GLUCOSE METER (BEAKER) 131 mg/dL 70-110 : TESTED AT [facility] [address] (test kzwv=9369) [facility], [address]: Collection Development Librarian/Cloth Shrinker PL=[id number] for EDISON BENDER BASIC METABOLIC [id number] 20:51:00 Test Item Value Reference Range Comments SODIUM (BEAKER) (test 147 meq/L 136-145 lyrw=999) POTASSIUM (BEAKER) (test 4.2 meq/L 3.5-5.1 fnqu=206) CHLORIDE (BEAKER) (test 108 meq/L 98-107 ylki=212) CO2 (BEAKER) (test 35 meq/L 22-29 uwxw=962) BLOOD UREA NITROGEN 43 mg/dL 7-21 (BEAKER) (test uybh=134) CREATININE (BEAKER) (test 1.59 mg/dL 0.57-1.25 ohxm=979) GLUCOSE RANDOM (BEAKER) 133 mg/dL 70-105 (test uewj=985) CALCIUM (BEAKER) (test 8.2 mg/dL 8.4-10.2 mmec=322) EGFR (BEAKER) (test 44 mL/min/1.73 sq m ESTIMATED GFR IS NOT bqro=3257) ACCURATE CREATININE CLEARANCE IN PREDICTING GLOMERULAR FILTRATION RATE. ESTIMATED GFR IS NOT APPLICABLE FOR DIALYSIS PATIENTS. Collection Development Librarian ID - ELISSA MSpecimen slightly ictericPT/[id number] 17:40:00 Test Item Value Reference Range Comments PROTIME (BEAKER) (test bylb=423) 20.2 seconds 11.9-14.2 INR (BEAKER) (test funk=315) 1.8 <=5.9 PARTIAL THROMBOPLASTIN TIME (BEAKER) (test 38.3 seconds 22.5-36.0 knbo=874) Effective 07/24/2018: PT Reference Range ChangeNew: 11.9-14.2 Previous: 11.7- 14.7RECOMMENDED COUMADIN/WARFARIN INR THERAPY RANGESSTANDARD DOSE: 2.0-3.0 Includes: PROPHYLAXIS for venous thrombosis, systemic embolization; TREATMENT for venous thrombosis and/or pulmonary embolus.HIGH RISK: Target INR is2.5-3.5 for patients wiht mechanical heart valves.BODY FLUID CELL COUNT WITH [id number] 17:31:00 Test Item Value Reference Range Comments APPEARANCE FLUID (BEAKER) (test qlqx=357) Bloody Clear COLOR FLUID (BEAKER) (test zqes=128) Red Colorless, Straw RBC FLUID (BEAKER) (test yhmh=821) 17[address] /cu mm <=1 ADJUSTED WBC FLUID (BEAKER) (test irxh=7091) 8467 /cu mm <=5 LINING CELLS (BEAKER) (test nhoq=7098) 85 /cu mm <=1 NEUTROPHILS FLUID (BEAKER) (test inhf=8062) 94 % LYMPHS FLUID (BEAKER) (test zcrl=644) 4 % MONO/MACROPHAGE FLUID (BEAKER) (test utoh=366) 1 % EOSINOPHILS FLUID (BEAKER) (test ihdk=902) 1 % BASO FLUID (BEAKER) (test zvko=714) 0 % CONTAINER BODY FLUID (BEAKER) (test fmlr=0295) EDTA Tube BODY FLUID CELL COUNT WITH [id number] 17:22:00 Test Item Value Reference Range Comments APPEARANCE FLUID (BEAKER) (test unhs=006) Bloody Clear COLOR FLUID (BEAKER) (test dhud=277) Red Colorless, Straw RBC FLUID (BEAKER) (test jldd=095) 24455 /cu mm <=1 ADJUSTED WBC FLUID (BEAKER) (test kpwl=9319) 79699 /cu mm <=5 LINING CELLS (BEAKER) (test rlgh=5087) 364 /cu mm <=1 NEUTROPHILS FLUID (BEAKER) (test dysr=6237) 85 % LYMPHS FLUID (BEAKER) (test mlng=378) 4 % MONO/MACROPHAGE FLUID (BEAKER) (test vqgl=321) 10 % EOSINOPHILS FLUID (BEAKER) (test daot=615) 1 % BASO FLUID (BEAKER) (test vzty=454) 0 % CONTAINER BODY FLUID (BEAKER) (test neec=4505) EDTA Tube SPUTUM CULTURE + GRAM [id number] 13:08:00 Test Item Value Reference Range Comments CULTURE (BEAKER) (test khcb=5396) See comment GRAM STAIN RESULT (BEAKER) (test 2+ WBCs zlqe=2437) GRAM STAIN RESULT (BEAKER) (test 0-5 epithelial cells nqud=329924) GRAM STAIN RESULT (BEAKER) (test No organisms seen seeg=381821) <1+ YeastNo Normal respiratory rigo presentBASIC METABOLIC [id number] 10:04:00 Test Item Value Reference Range Comments SODIUM (BEAKER) (test 147 meq/L 136-145 znsw=396) POTASSIUM (BEAKER) (test 3.5 meq/L 3.5-5.1 drkl=352) CHLORIDE (BEAKER) (test 105 meq/L 98-107 hcss=723) CO2 (BEAKER) (test 34 meq/L 22-29 gupu=644) BLOOD UREA NITROGEN 39 mg/dL 7-21 (BEAKER) (test qgkp=856) CREATININE (BEAKER) (test 1.42 mg/dL 0.57-1.25 qkcm=852) GLUCOSE RANDOM (BEAKER) 101 mg/dL 70-105 (test boqa=656) CALCIUM (BEAKER) (test 8.6 mg/dL 8.4-10.2 prvm=844) EGFR (BEAKER) (test 50 mL/min/1.73 sq m ESTIMATED GFR IS NOT nuvf=1841) ACCURATE CREATININE CLEARANCE IN PREDICTING GLOMERULAR FILTRATION RATE. ESTIMATED GFR IS NOT APPLICABLE FOR DIALYSIS PATIENTS. Collection Development Librarian ID - ELISSA MSpecimen slightly [id number] 10:02:00 Test Item Value Reference Range Comments PARTIAL THROMBOPLASTIN TIME (BEAKER) (test 35.5 seconds 22.5-36.0 taaz=436) 6 hours after starting heparin infusion and as indicated per sliding scaleRAD, CHEST, 1 VIEW, NON [id number] 09:09:00Reason for exam:->intubated, bilateral chest tubesShould this be performed at the bedside?->YesFINAL REPORT Portable chest. CLINICAL HISTORY: intubated, bilateral chest tubes. COMPARISON STUDY: March 20, 2019. FINDINGS: The cardiac silhouette is enlarged. Sternotomy wires are seen. The pulmonary parenchyma demonstrates increased interstitial and airspace opacities with pulmonary venous congestion and bibasilar atelectasis or consolidation with a small left and mild to moderate right pleural effusion, similar to previous. The support lines and tubes are unchanged. No pneumothorax is seen. Degenerative changes are noted. IMPRESSION: No significant change. Signed: Nova Salazar MDReport Verified Date/Time: 03/22/2019 09:09:11 Reading Location: [facility] B1 C013X Ortho Consult Reading Room POCT-GLUCOSE [id number] 06:06: 00 Test Item Value Reference Range Comments POC-GLUCOSE METER (BEAKER) 105 mg/dL 70-110 : TESTED AT [facility] [address] [facility] (test ydtg=7126) [facility], [id number]: Collection Development Librarian/Cloth Shrinker CT=[id number] for EDISON BENDER VANCOMYCIN LEVEL, [id number] 02:59:00 Test Item Value Reference Range Comments VANCOMYCIN TROUGH (BEAKER) (test clzp=635) 15.2 ug/mL 10.0-20.0 Collection Development Librarian ID - JOSE [id number] 02:42:00 Test Item Value Reference Range Comments PHOSPHORUS (BEAKER) (test dult=275) 3.8 mg/dL 2.3-4.7 Collection Development Librarian ID - JOSE [id number] 02:42:00 Test Item Value Reference Range Comments MAGNESIUM (BEAKER) (test daap=472) 2.0 mg/dL 1.6-2.6 Collection Development Librarian ID - JOSE EBASIC METABOLIC [id number] 02:42:00 Test Item Value Reference Range Comments SODIUM (BEAKER) (test 144 meq/L 136-145 umwq=485) POTASSIUM (BEAKER) (test 4.2 meq/L 3.5-5.1 qyjx=553) CHLORIDE (BEAKER) (test 103 meq/L 98-107 pltj=871) CO2 (BEAKER) (test 35 meq/L 22-29 cxlf=859) BLOOD UREA NITROGEN 39 mg/dL 7-21 (BEAKER) (test yphi=178) CREATININE (BEAKER) (test 1.57 mg/dL 0.57-1.25 kzee=815) GLUCOSE RANDOM (BEAKER) 103 mg/dL 70-105 (test gqkf=883) CALCIUM (BEAKER) (test 8.5 mg/dL 8.4-10.2 auvh=308) EGFR (BEAKER) (test 45 mL/min/1.73 sq m ESTIMATED GFR IS NOT rmrc=8053) ACCURATE CREATININE CLEARANCE IN PREDICTING GLOMERULAR FILTRATION RATE. ESTIMATED GFR IS NOT APPLICABLE FOR DIALYSIS PATIENTS. Collection Development Librarian ID - JOSE milton ictericCBC W/PLT COUNT & AUTO [id number] 02:27:00 Test Item Value Reference Range Comments WHITE BLOOD CELL COUNT (BEAKER) (test xjae=608) 16.4 K/ L 3.5-10.5 RED BLOOD CELL COUNT (BEAKER) (test dmlh=237) 4.03 M/ L 4.63-6.08 HEMOGLOBIN (BEAKER) (test nqiz=431) 10.1 GM/DL 13.7-17.5 HEMATOCRIT (BEAKER) (test dpjc=215) 31.0 % 40.1-51.0 MEAN CORPUSCULAR VOLUME (BEAKER) (test apzb=042) 76.9 fL 79.0-92.2 MEAN CORPUSCULAR HEMOGLOBIN (BEAKER) (test 25.1 pg 25.7-32.2 ftdh=673) MEAN CORPUSCULAR HEMOGLOBIN CONC (BEAKER) (test 32.6 GM/DL 32.3-36.5 yejs=439) RED CELL DISTRIBUTION WIDTH (BEAKER) (test 18.8 % 11.6-14.4 hfde=303) PLATELET COUNT (BEAKER) (test jjss=025) 255 K/CU MM 150-450 MEAN PLATELET VOLUME (BEAKER) (test relu=168) 11.2 fL 9.4-12.4 NUCLEATED RED BLOOD CELLS (BEAKER) (test 0 /100 WBC 0-0 ohaj=050) NEUTROPHILS RELATIVE PERCENT (BEAKER) (test 79 % ehnk=620) LYMPHOCYTES RELATIVE PERCENT (BEAKER) (test 11 % pkxw=845) MONOCYTES RELATIVE PERCENT (BEAKER) (test 9 % aobo=895) EOSINOPHILS RELATIVE PERCENT (BEAKER) (test 1 % xqeh=483) BASOPHILS RELATIVE PERCENT (BEAKER) (test 0 % snjk=638) NEUTROPHILS ABSOLUTE COUNT (BEAKER) (test 12.95 K/ L 1.78-5.38 mvzx=834) LYMPHOCYTES ABSOLUTE COUNT (BEAKER) (test 1.77 K/ L 1.32-3.57 cfgh=557) MONOCYTES ABSOLUTE COUNT (BEAKER) (test 1.41 K/ L 0.30-0.82 kjer=231) EOSINOPHILS ABSOLUTE COUNT (BEAKER) (test 0.13 K/ L 0.04-0.54 olsa=701) BASOPHILS ABSOLUTE COUNT (BEAKER) (test 0.02 K/ L 0.01-0.08 atti=360) IMMATURE GRANULOCYTES-RELATIVE PERCENT (BEAKER) 1 % 0-1 (test kjxi=7772) POCT-GLUCOSE [id number] 00:42:00 Test Item Value Reference Range Comments POC-GLUCOSE METER (BEAKER) 95 mg/dL 70-110 : TESTED AT [facility] [address] [facility] (test xkwp=3497) [facility], [address]: Collection Development Librarian/Cloth Shrinker [id number] for EDISON BENDER BASIC METABOLIC [id number] 22:23:00 Test Item Value Reference Range Comments SODIUM (BEAKER) (test 146 meq/L 136-145 chxh=256) POTASSIUM (BEAKER) (test 3.3 meq/L 3.5-5.1 idzj=210) CHLORIDE (BEAKER) (test 104 meq/L 98-107 rsmv=256) CO2 (BEAKER) (test 34 meq/L 22-29 vlec=709) BLOOD UREA NITROGEN 37 mg/dL 7-21 (BEAKER) (test rkcc=360) CREATININE (BEAKER) (test 1.47 mg/dL 0.57-1.25 jtcg=149) GLUCOSE RANDOM (BEAKER) 98 mg/dL 70-105 (test gfft=153) CALCIUM (BEAKER) (test 7.8 mg/dL 8.4-10.2 slyt=328) EGFR (BEAKER) (test 48 mL/min/1.73 sq m ESTIMATED GFR IS NOT tnhj=7205) ACCURATE CREATININE CLEARANCE IN PREDICTING GLOMERULAR FILTRATION RATE. ESTIMATED GFR IS NOT APPLICABLE FOR DIALYSIS PATIENTS. Collection Development Librarian ID - BSSpecimen slightly ictericBODY FLUID CELL COUNT WITH [id number] 20:29:00 Test Item Value Reference Range Comments APPEARANCE FLUID (BEAKER) (test drrg=144) Hazy Clear COLOR FLUID (BEAKER) (test eaiq=972) Kierra Colorless, Straw RBC FLUID (BEAKER) (test acfj=964) 956[address] /cu mm <=1 ADJUSTED WBC FLUID (BEAKER) (test iucn=9854) 2461 /cu mm <=5 LINING CELLS (BEAKER) (test wvyt=5958) 0 /cu mm <=1 NEUTROPHILS FLUID (BEAKER) (test perp=6852) 66 % LYMPHS FLUID (BEAKER) (test rdks=920) 17 % MONO/MACROPHAGE FLUID (BEAKER) (test iofo=040) 17 % EOSINOPHILS FLUID (BEAKER) (test xqaz=524) 0 % BASO FLUID (BEAKER) (test iqyg=215) 0 % CONTAINER BODY FLUID (BEAKER) (test sjrh=3081) EDTA Tube U/S, DRAINAGE, CHEST, WITH TUBE [id number] 19:48:00Please place a 3- way stopcock on the pigtail chest tube so we can do dornase bid Reason for exam: ->large right sided loculated pleural effusion Anesthesia:->NoneFINAL REPORT Ultrasound guided insertion of bilateral pigtail chest tube catheters. History: Bilateral loculated pleural effusions. Modality: Ultrasound Sedation: None Anesthesia: Two percent Lidocaine without epinephrine. Approach: Bilateral mid axillary line Estimated blood loss: < 5 cc. Specimen: Left bedside. still operator helper: Nato Dang MD. Mica Miner Blasting: None. Technique: Informed written consent was obtained. Discussion of risks, benefits, and alternatives were made with the patient's family. The patient's family expressed understanding and agreed to proceed. A universal timeout was performed prior to starting the procedure. All elements maximal sterile barrier technique was utilized for this procedure, including utilization of sterile scrub solution for skin prep, a large sterile sheet to cover the areas of the patient that were not prepped, and hand hygiene, mask, head covering, and sterile gown for performing radiologist and scrub technologist. Ultrasound of the patient's right chest demonstrated a large loculated right pleural effusion. The right axillary line was marked, prepped with correcting, draped in the usual sterile fashion. After local anesthesia was achieved with lidocaine small skin incision was made along the right midaxillary line at a low intercostal space. Under direct ultrasound guidance an 8 Argentine skater pigtail drain was advanced into the right pleural effusion under direct ultrasound guidance. Once the drain was within the pleural space the catheter was advanced off the trocar and the pigtail was formed within the pleural fluid. The catheter was secured to the patient's skin with 2-0 silk and connected to a atrium pleura vac. Attention was then turned to the patient's left chest and an 8 Argentine skater pigtail drain was placed in a similar fashion and connected to the atrium pleura. The patient tolerated the procedure well without evidence of immediate competition. Impression: Technically successful and uncomplicated placement of bilateral pigtail chest tubes under ultrasound guidance. Signed: Nato Dang MDReport Verified Date/Time: 03/21/2019 19:48:47 Reading Location: [facility] [address] [facility] Body Reading Room Electronically signed by: NATO DANG on 2019 07:48 PMRESPIRATORY PANEL [id number] 12:39:00 Test Item Value Reference Range Comments HUMAN METAPNEUMOVIRUS (BEAKER) (test Not detected Not detected, Equivocal nlbb=8006) RHINOVIRUS (BEAKER) (test pjff=8247) Not detected Not detected, Equivocal INFLUENZA A (BEAKER) (test ungd=6507) Not detected Not detected, Equivocal INFLUENZA A (NO SUBTYPE) (test tvqq=0489) INFLUENZA A SUBTYPE H1 (BEAKER) (test xvrj=5461) INFLUENZA A SUBTYPE H3 (BEAKER) (test bddb=3304) INFLUENZA A SUBTYPE H1-2009 (BEAKER) (test slxg=7533) INFLUENZA B (BEAKER) (test dguf=0831) Not detected Not detected, Equivocal RESPIRATORY SYNCYTIAL VIRUS (BEAKER) Not detected Not detected, Equivocal (test kacd=8834) PARAINFLUENZA VIRUS 1 (BEAKER) (test Not detected Not detected, Equivocal yqyv=2770) PARAINFLUENZA VIRUS 2 (BEAKER) (test Not detected Not detected, Equivocal piar=1265) PARAINFLUENZA VIRUS 3 (BEAKER) (test Not detected Not detected, Equivocal qajr=2701) PARAINFLUENZA VIRUS 4 (BEAKER) (test Not detected Not detected, Equivocal ildf=8255) ADENOVIRUS (BEAKER) (test fzdm=4230) Not detected Not detected, Equivocal CORONAVIRUS 229E (BEAKER) (test Not detected Not detected, Equivocal gtek=3493) CORONAVIRUS HKU1 (BEAKER) (test Not detected Not detected, Equivocal snld=2704) CORONAVIRUS NL63 (BEAKER) (test Not detected Not detected, Equivocal djdk=4263) CORONAVIRUS OC43 (BEAKER) (test Not detected Not detected, Equivocal rggp=1273) BORDETELLA PERTUSSIS (BEAKER) (test Not detected Not detected, Equivocal nvqf=0424) CHLAMYDOPHILA PNEUMONIAE (BEAKER) (test Not detected Not detected, Equivocal zhax=1422) MYCOPLASMA PNEUMONIAE (BEAKER) (test Not detected Not detected, Equivocal vcam=6299) Other viruses and bacteria not targeted by this PCR panel cannot be excluded; therefore clinical correlation and follow up of serology, culture results, and other molecular studies is required. The results are not intended to be used as the sole means for clinical diagnosis or patient management decisions. This sample was tested at the [facility] Molecular Diagnostics Laboratory using the BioEx[employer] Specialty ProteinsArray Respiratory Panel. It is FDA cleared and has been verified and approved by the [facility] Molecular Diagnostics Laboratory for clinical use on nasopharyngeal swab specimens.The performance of the FilmArrayRP has not been established in individuals who received influenza vaccine. Recent administration ofa nasal influenza vaccine may cause false positive results for Influenza A and/orInfluenza B.VITAMIN B12 AND [id number] 10:20:00 Test Item Value Reference Range Comments VITAMIN B12 (BEAKER) (test jyqm=576) > pg/mL 213-816 FOLATE (BEAKER) (test hses=387) 17.3 ng/mL >=7.0 Collection Development Librarian ID - ELISSA [id number] 10:16:00 Test Item Value Reference Range Comments FERRITIN (BEAKER) (test cpid=210) 1076 ng/mL 5-275 Collection Development Librarian ID - ELISSA [id number] 09:41:00 Test Item Value Reference Range Comments MAGNESIUM (BEAKER) (test uhac=576) 2.0 mg/dL 1.6-2.6 Collection Development Librarian ID - ELISSA MBASIC METABOLIC [id number] 09:41:00 Test Item Value Reference Range Comments SODIUM (BEAKER) (test 144 meq/L 136-145 nwon=006) POTASSIUM (BEAKER) (test 3.9 meq/L 3.5-5.1 juio=095) CHLORIDE (BEAKER) (test 102 meq/L 98-107 ykqj=659) CO2 (BEAKER) (test 39 meq/L 22-29 yzxo=322) BLOOD UREA NITROGEN 34 mg/dL 7-21 (BEAKER) (test qgut=743) CREATININE (BEAKER) (test 1.36 mg/dL 0.57-1.25 ncnw=377) GLUCOSE RANDOM (BEAKER) 94 mg/dL 70-105 (test kunm=453) CALCIUM (BEAKER) (test 8.0 mg/dL 8.4-10.2 iefr=633) EGFR (BEAKER) (test 53 mL/min/1.73 sq m ESTIMATED GFR IS NOT nibk=1735) ACCURATE CREATININE CLEARANCE IN PREDICTING GLOMERULAR FILTRATION RATE. ESTIMATED GFR IS NOT APPLICABLE FOR DIALYSIS PATIENTS. Collection Development Librarian ID - ELISSA MSpecimen slightly ictericLACTATE DEHYDROGENASE (LDH) 09:41:00 Test Item Value Reference Range Comments LACTATE DEHYDROGENASE (BEAKER) (test pbdo=694) 300 U/L 125-220 Collection Development Librarian ID - ELISSA DANIELLE, TIBC, % SAT. (WITHOUT FERRITIN)2019-03-21 09:39:00 Test Item Value Reference Range Comments IRON (BEAKER) (test bhqq=358) 39.0 ug/dL 40.0-160.0 TOTAL IRON BINDING CAPACITY (BEAKER) (test 113 ug/dL 250-450 uqen=501) IRON % SATURATION (2) (BEAKER) (test nrei=3364) 35 % 20-55 Collection Development Librarian ID - ELISSA MRAPID INFLUENZA A&B [id number] 09:34:00 Test Item Value Reference Range Comments RAPID INFLUENZA A AG (BEAKER) (test Negative Negative, Inconclusive uhzn=8558) RAPID INFLUENZA B AG (BEAKER) (test Negative Negative, Inconclusive mbwq=9670) RETICULOCYTE [id number] 09:20:00 Test Item Value Reference Range Comments RETICULOCYTE COUNT PCT (BEAKER) (test ffjm=830) 1.9 % 0.5-1.8 Collection Development Librarian ID - 6000CBC W/PLT COUNT & AUTO [id number] 08:50:00 Test Item Value Reference Range Comments WHITE BLOOD CELL COUNT (BEAKER) (test ozfq=063) 17.8 K/ L 3.5-10.5 RED BLOOD CELL COUNT (BEAKER) (test ceck=537) 4.58 M/ L 4.63-6.08 HEMOGLOBIN (BEAKER) (test ycjd=173) 11.3 GM/DL 13.7-17.5 HEMATOCRIT (BEAKER) (test awcq=925) 35.2 % 40.1-51.0 MEAN CORPUSCULAR VOLUME (BEAKER) (test hqbl=106) 76.9 fL 79.0-92.2 MEAN CORPUSCULAR HEMOGLOBIN (BEAKER) (test 24.7 pg 25.7-32.2 xbgo=745) MEAN CORPUSCULAR HEMOGLOBIN CONC (BEAKER) (test 32.1 GM/DL 32.3-36.5 axro=040) RED CELL DISTRIBUTION WIDTH (BEAKER) (test 19.0 % 11.6-14.4 dfsy=151) PLATELET COUNT (BEAKER) (test gqlg=628) 339 K/CU MM 150-450 MEAN PLATELET VOLUME (BEAKER) (test mtbv=151) 11.1 fL 9.4-12.4 NUCLEATED RED BLOOD CELLS (BEAKER) (test 0 /100 WBC 0-0 kdrw=874) (CELLAVISION MANUAL DIFF)2019-03-21 08:50:00 Test Item Value Reference Range Comments NEUTROPHILS - REL (CELLAVISION)(BEAKER) (test 88 % mtvx=8051) LYMPHOCYTES - REL (CELLAVISION)(BEAKER) (test 1 % mami=7768) MONOCYTES - REL (CELLAVISION)(BEAKER) (test 5 % zaso=2161) EOSINOPHILS - REL (CELLAVISION)(BEAKER) (test 4 % vulb=5545) BANDS - REL (CELLAVISION)(BEAKER) (test 2 % 0-10 esnd=4302) NEUTROPHILS - ABS (CELLAVISION)(BEAKER) (test 15.66 K/ul 1.78-5.38 kfli=5792) LYMPHOCYTES - ABS (CELLAVISION)(BEAKER) (test 0.18 K/ul 1.32-3.57 vblr=6128) MONOCYTES - ABS (CELLAVISION)(BEAKER) (test 0.89 K/uL 0.30-0.82 cgvf=6287) EOSINOPHILS - ABS (CELLAVISION)(BEAKER) (test 0.71 K/uL 0.04-0.54 unlo=9364) BANDS - ABS (CELLAVISION)(BEAKER) (test 0.36 K/uL 0.00-0.80 xbua=1585) TOTAL COUNTED (BEAKER) (test csnx=5153) 100 WBC MORPHOLOGY (BEAKER) (test mlvz=302) Normal PLT MORPHOLOGY (BEAKER) (test nhyq=504) Normal POLYCHROMATOPHILLIC RBCS(BEAKER) (test mbrj=879) 1+ few ANISOCYTOSIS (BEAKER) (test glqa=061) 1+ few POIKILOCYTES (BEAKER) (test fhzu=879) 2+ moderate BAN CELLS (BEAKER) (test cmgb=308) 2+ moderate ARTIFACT (CELLAVISION)(BEAKER) (test bfyh=4370) Present PLATELET CONCENTRATION (CELLAVISION)(BEAKER) Adequate (test jlxf=4147) Collection Development Librarian ID - Mariela OverholtUser comments: Slide comments:POCT-GLUCOSE [id number] 05:45:00 Test Item Value Reference Range Comments POC-GLUCOSE METER (BEAKER) 89 mg/dL 70-110 : TESTED AT [facility] [address] [facility] (test trew=8836) [facility], [address]: Collection Development Librarian/Cloth Shrinker [id number] for EDISON BENDER U/S, ABDOMINAL, [id number] 05:36:00Abdomen limited area? Add comment if clarification is needed.->Right upper quadrantReason for exam:-> hyperbilirubinemiaShould this be performed at the bedside?->YesFINAL REPORT TECHNIQUE: Grayscale ultrasound of the right abdomen. INDICATION: hyperbilirubinemia. COMPARISON: None. FINDINGS: MIDLINE VASCULATURE : The visualized inferior vena cava is patent. Portal vein is patent. The maximum visualized aortic diameter is 2.2 cm. LIVER: Smooth liver contour. No focal lesions. The main portal vein measures 0.6 cm. BILIARY:Gallbladder: No gallstones or sludge. No gallbladder wall thickening, pericholecystic fluid, or distention. Negative sonographic Jonas sign.Common bile duct measures 0.4 cm, within normal limits. No intrahepatic biliary ductal dilatation. PANCREAS: Incompletely visualized due to overlying bowel gas. PERITONEUM: No free fluid. RIGHT KIDNEY: Normal in size. No hydronephrosis. No sonographically evident solid mass lesion. OTHER: Partially imaged right pleural effusion with septations. IMPRESSION:Right pleural effusion with septations. Otherwise, unremarkable ultrasound of the right upper quadrant. Signed: [facility]a [facility] Verified Date/Time: 03/21/2019 05:36:04 [id number] 03:16:00 Test Item Value Reference Range Comments MAGNESIUM (BEAKER) (test 2.1 mg/dL 1.6-2.6 Specimen slightly hemolyzed oadw=955) Collection Development Librarian ID - ELISSA [id number] 03:16:00 Test Item Value Reference Range Comments PHOSPHORUS (BEAKER) (test 4.4 mg/dL 2.3-4.7 Specimen slightly hemolyzed jeln=923) Collection Development Librarian ID - ELISSA [id number] 02:32:00 Test Item Value Reference Range Comments MAGNESIUM (BEAKER) (test 2.1 mg/dL 1.6-2.6 Specimen slightly hemolyzed guem=693) Collection Development Librarian ID - ALEM BBASIC METABOLIC [id number] 01:30:00 Test Item Value Reference Range Comments SODIUM (BEAKER) (test 141 meq/L 136-145 htrd=072) POTASSIUM (BEAKER) (test 3.7 meq/L 3.5-5.1 ykpx=361) CHLORIDE (BEAKER) (test 102 meq/L 98-107 cgzu=460) CO2 (BEAKER) (test 33 meq/L 22-29 bazv=339) BLOOD UREA NITROGEN 32 mg/dL 7-21 (BEAKER) (test qqkb=949) CREATININE (BEAKER) (test 1.28 mg/dL 0.57-1.25 ptfx=803) GLUCOSE RANDOM (BEAKER) 109 mg/dL 70-105 (test npqg=358) CALCIUM (BEAKER) (test 7.6 mg/dL 8.4-10.2 delf=516) EGFR (BEAKER) (test 57 mL/min/1.73 sq m ESTIMATED GFR IS NOT ogbj=8506) ACCURATE CREATININE CLEARANCE IN PREDICTING GLOMERULAR FILTRATION RATE. ESTIMATED GFR IS NOT APPLICABLE FOR DIALYSIS PATIENTS. Collection Development Librarian ID - ALEM BSpecimen slightly ictericPOCT-GLUCOSE [id number] 23:58: 00 Test Item Value Reference Range Comments POC-GLUCOSE METER (BEAKER) 114 mg/dL 70-110 : [facility] AT [facility] [address] [facility] (test luwc=6013) [facility], [address]: Collection Development Librarian/Cloth Shrinker [id number] for EDISON BENDER [id number] 20:21:00 Test Item Value Reference Range Comments MAGNESIUM (BEAKER) (test caag=837) 2.1 mg/dL 1.6-2.6 Collection Development Librarian ID - ALEM BPOCT-GLUCOSE [id number] 18:23:00 Test Item Value Reference Range Comments POC-GLUCOSE METER (BEAKER) 98 mg/dL 70-110 : TESTED AT [facility] [address] [facility] (test qctv=9569) [facility], [address]: Collection Development Librarian/Cloth Shrinker [id number] for ISABELA GILMORE BASIC METABOLIC [id number] 17:43:00 Test Item Value Reference Range Comments SODIUM (BEAKER) (test 142 meq/L 136-145 axuo=407) POTASSIUM (BEAKER) (test 3.3 meq/L 3.5-5.1 ozwl=273) CHLORIDE (BEAKER) (test 100 meq/L 98-107 xvjb=147) CO2 (BEAKER) (test 37 meq/L 22-29 zriu=305) BLOOD UREA NITROGEN 29 mg/dL 7-21 (BEAKER) (test qvgl=230) CREATININE (BEAKER) (test 1.22 mg/dL 0.57-1.25 beys=625) GLUCOSE RANDOM (BEAKER) 104 mg/dL 70-105 (test pwnj=576) CALCIUM (BEAKER) (test 8.0 mg/dL 8.4-10.2 icxg=392) EGFR (BEAKER) (test 60 mL/min/1.73 sq m ESTIMATED GFR IS NOT wyuu=2512) ACCURATE CREATININE CLEARANCE IN PREDICTING GLOMERULAR FILTRATION RATE. ESTIMATED GFR IS NOT APPLICABLE FOR DIALYSIS PATIENTS. Collection Development Librarian ID - AAHAMIDSpecimen slightly ictericBLOOD GAS, [id number] 16: 45:00 Test Item Value Reference Range Comments PH ARTERIAL (BEAKER) (test ixoq=544) 7.50 7.35-7.45 PCO2 ARTERIAL (BEAKER) (test efwh=617) 49 mmHg 35-45 PO2 ARTERIAL (BEAKER) (test jvdp=076) 87 mmHg 80-90 O2 SATURATION ARTERIAL (BEAKER) (test swmb=740) 97.0 % 96.0-97.0 HCO3 ARTERIAL (BEAKER) (test axob=695) 38 mmol/L 21-29 BASE EXCESS ARTERIAL (BEAKER) (test xuvl=208) 12.9 mmol/L -2.0-3.0 PATIENT TEMPERATURE (BEAKER) (test giyq=9024) 37.5 C FIO2 (BEAKER) (test gqyc=8940) 30.0 % CT, CHEST, WITHOUT [id number] 14:58:00FINAL REPORT CT of the Chest dated 03/20/2019 CLINICAL INFORMATION: Pleural effusion Comment: Axial images of the chest were obtained from thoracic inlet to the upper abdomen without intravenous contrast. This exam was performed according to our departmental dose-optimization program, which includes automated exposure control, adjustment of the mA and/or kV according to patient size and/or use of interactive reconstruction technique. Heart is in upper limits of normal in size. Ascending thoracic aorta is enlarged measuring 5.2 cm in diameter. Descending thoracic aorta measures 2.6 cm. Atherosclerotic calcification is seen in the thoracic aorta and coronary arteries. Great vessels are unremarkable. No adenopathy in the mediastinum or perihilar region. Trachea and mainstem bronchi are patent. There is moderate to large bilateral pleural effusion. Subsegmental atelectasis is seen in the lingula, right mid, and both lower lobes. The rest of the lungs are clear. No nodular, mass lesion, or airspace disease is seen. Visualized upper abdomen demonstrates no focal lesion.Impression: 1. Ascending thoracic with ascending thoracic aortic aneurysm. 2. Bilateral pleural effusion with lingula, right mid, and bibasilar compressive atelectasis. Signed: Tomasa Foss Verified Date/Time: 03/20 14:58:27 Reading Location: [facility] C013Y CT Body Reading Room VANCOMYCIN LEVEL, [id number] 13:36:00 Test Item Value Reference Range Comments VANCOMYCIN TROUGH (BEAKER) (test cept=987) 24.0 ug/mL 10.0-20.0 Collection Development Librarian ID - BSPOCT-GLUCOSE [id number] 12:46:00 Test Item Value Reference Range Comments POC-GLUCOSE METER (BEAKER) 87 mg/dL 70-110 : TESTED AT [address] (test hcnh=8850) [facility], [address]: Collection Development Librarian/Cloth Shrinker [id number] for ISABELA GILMORE HEMOGLOBIN [id number] 09:33:00 Test Item Value Reference Range Comments HEMOGLOBIN A1C (BEAKER) (test guro=336) 6.2 % 4.3-6.1 OSMOLALITY, [id number] 07:32:00 Test Item Value Reference Range Comments OSMOLALITY URINE (BEAKER) (test dfyo=511) 540 mOsm/kg 40-1,400 TROPONIN [id number] 06:34:00 Test Item Value Reference Range Comments TROPONIN I (BEAKER) (test yhdx=191) 0.03 ng/mL 0.00-0.03 Troponin I (TnI) levels must [...] failure, acidosis, acute neurological disease, and persistent tachyarrhythmia.Collection Development Librarian ID - SANDRA WLACTIC ACID, [id number] 06:14:00 Test Item Value Reference Range Comments LACTATE BLOOD VENOUS (2) (BEAKER) (test 2.0 mmol/L 0.5-2.2 dvrn=6983) Collection Development Librarian ID - SANDRA WSpecimen slightly ictericPOCT-GLUCOSE [id number] 05:56 :00 Test Item Value Reference Range Comments POC-GLUCOSE METER (AKER) 86 mg/dL 70-110 : TESTED AT [address] (test mjux=1671) [facility], [address]: Collection Development Librarian/Cloth Shrinker KZ=[id number] for CHARLEEN VILCHIS CBC W/PLT COUNT & AUTO [id number] 05:35:00 Test Item Value Reference Range Comments WHITE BLOOD CELL COUNT (BEAKER) (test xjcz=905) 14.8 K/ L 3.5-10.5 RED BLOOD CELL COUNT (BEAKER) (test hrxw=443) 5.03 M/ L 4.63-6.08 HEMOGLOBIN (BEAKER) (test tlrh=399) 12.3 GM/DL 13.7-17.5 HEMATOCRIT (BEAKER) (test tozj=945) 37.7 % 40.1-51.0 MEAN CORPUSCULAR VOLUME (BEAKER) (test icsq=915) 75.0 fL 79.0-92.2 MEAN CORPUSCULAR HEMOGLOBIN (BEAKER) (test 24.5 pg 25.7-32.2 bxks=389) MEAN CORPUSCULAR HEMOGLOBIN CONC (BEAKER) (test 32.6 GM/DL 32.3-36.5 rrtk=065) RED CELL DISTRIBUTION WIDTH (BEAKER) (test 18.7 % 11.6-14.4 dyyr=205) PLATELET COUNT (BEAKER) (test nzle=181) 357 K/CU MM 150-450 MEAN PLATELET VOLUME (BEAKER) (test tkhv=247) 11.4 fL 9.4-12.4 NUCLEATED RED BLOOD CELLS (BEAKER) (test 0 /100 WBC 0-0 unmz=734) NEUTROPHILS RELATIVE PERCENT (BEAKER) (test 78 % nles=594) LYMPHOCYTES RELATIVE PERCENT (BEAKER) (test 12 % zzpb=444) MONOCYTES RELATIVE PERCENT (BEAKER) (test 8 % ebzy=713) EOSINOPHILS RELATIVE PERCENT (BEAKER) (test 1 % khrx=484) BASOPHILS RELATIVE PERCENT (BEAKER) (test 0 % ahjt=880) NEUTROPHILS ABSOLUTE COUNT (BEAKER) (test 11.57 K/ L 1.78-5.38 lvix=449) LYMPHOCYTES ABSOLUTE COUNT (BEAKER) (test 1.70 K/ L 1.32-3.57 aztk=843) MONOCYTES ABSOLUTE COUNT (BEAKER) (test 1.25 K/ L 0.30-0.82 nrss=930) EOSINOPHILS ABSOLUTE COUNT (BEAKER) (test 0.14 K/ L 0.04-0.54 wcey=502) BASOPHILS ABSOLUTE COUNT (BEAKER) (test 0.02 K/ L 0.01-0.08 cmle=139) IMMATURE GRANULOCYTES-RELATIVE PERCENT (BEAKER) 1 % 0-1 (test ygmz=8754) URINALYSIS W/ REFLEX URINE [id number] 04:38:00 Test Item Value Reference Range Comments COLOR (BEAKER) (test cwiv=381) Dark Yellow CLARITY (BEAKER) (test rscu=097) Clear SPECIFIC GRAVITY UA (BEAKER) (test ybla=288) 1.024 1.001-1.035 PH UA (BEAKER) (test osam=975) 8.0 5.0-8.0 PROTEIN UA (BEAKER) (test dgti=817) 50 mg/dL Negative GLUCOSE UA (BEAKER) (test uxoo=423) Negative Negative KETONES UA (BEAKER) (test odne=856) Negative Negative BILIRUBIN UA (BEAKER) (test cwmt=580) Positive Negative BLOOD UA (BEAKER) (test anxn=530) Negative Negative NITRITE UA (BEAKER) (test vxzb=705) Negative Negative LEUKOCYTE ESTERASE UA (BEAKER) (test oddp=248) Moderate Negative UROBILINOGEN UA (BEAKER) (test jdee=180) > mg/dL 0.2-1.0 RBC UA (BEAKER) (test jsht=206) 10 /HPF WBC UA (BEAKER) (test rpid=710) 18 /HPF SQUAMOUS EPITHELIAL (BEAKER) (test xmlt=432) < /HPF SOURCE(BEAKER) (test cttu=8367) Collection Development Librarian ID - [auto]Collection Development Librarian ID - techRAD, CHEST, 1 VIEW, NON [id number] 04: 29:00Reason for exam:->pneumonia, COPD exac, CHF exacShould this be performed at the bedside?->YesFINAL REPORT Chest one view. Clinical history: pneumonia, COPD exac, CHF exac Comparison: Chest radiograph 01/21/2019. Technique: A single frontal view of the chest was obtained. Findings:The patient is status post median sternotomy. Endotracheal and feeding tubes are in satisfactory positions. There is stable enlargement of the cardiac silhouette. There are small to moderatebilateral pleural effusions with associated compressive atelectasis; superimposed pneumonia cannot be excluded. There are bilateral congestive changes. There is no pneumothorax. Signed: Nakia Goldsteineport Verified Date/Time: 03/20/2019 04:29:54 BLOOD GAS, [id number] 04:12:00 Test Item Value Reference Range Comments PH ARTERIAL (BEAKER) (test vezu=697) 7.53 7.35-7.45 PCO2 ARTERIAL (BEAKER) (test ryxg=376) 44 mmHg 35-45 PO2 ARTERIAL (BEAKER) (test ryhk=861) 81 mmHg 80-90 O2 SATURATION ARTERIAL (BEAKER) (test nzgy=485) 96.9 % 96.0-97.0 HCO3 ARTERIAL (BEAKER) (test qewe=361) 36 mmol/L 21-29 BASE EXCESS ARTERIAL (BEAKER) (test oicb=964) 11.3 mmol/L -2.0-3.0 PATIENT TEMPERATURE (BEAKER) (test qpbn=7346) 37.0 C FIO2 (BEAKER) (test dyle=2399) 30.0 % TSH/FREE T4 IF [id number] 04:07:00 Test Item Value Reference Range Comments THYROID STIMULATING HORMONE (BEAKER) (test 3.06 uIU/mL 0.35-4.94 hbmh=159) Collection Development Librarian ID - BSTROPONIN [id number] 03:57:00 Test Item Value Reference Range Comments TROPONIN I (BEAKER) (test datu=386) 0.05 ng/mL 0.00-0.03 Troponin I (TnI) levels [...] failure, acidosis, acute neurological disease, and persistent tachyarrhythmia.Collection Development Librarian ID - SANDRA WB-TYPE NATRIURETIC FACTOR (BNP)2019-03-20 03:53:00 Test Item Value Reference Range Comments B-TYPE NATRIURETIC PEPTIDE (BEAKER) (test 907 pg/mL 0-100 vmps=995) Collection Development Librarian ID - BSBASIC METABOLIC [id number] 03:52:00 Test Item Value Reference Range Comments SODIUM (BEAKER) (test 142 meq/L 136-145 sapd=765) POTASSIUM (BEAKER) (test 3.6 meq/L 3.5-5.1 Specimen slightly byha=109) hemolyzed CHLORIDE (BEAKER) (test 100 meq/L 98-107 gmlq=873) CO2 (BEAKER) (test 35 meq/L 22-29 edtd=050) BLOOD UREA NITROGEN 24 mg/dL 7-21 (BEAKER) (test tfvh=543) CREATININE (BEAKER) (test 0.90 mg/dL 0.57-1.25 Specimen slightly pxmm=741) hemolyzed GLUCOSE RANDOM (BEAKER) 86 mg/dL 70-105 (test kdfo=813) CALCIUM (BEAKER) (test 7.7 mg/dL 8.4-10.2 ymhc=198) EGFR (BEAKER) (test 85 mL/min/1.73 sq m ESTIMATED GFR IS NOT ipyk=1096) ACCURATE CREATININE CLEARANCE IN PREDICTING GLOMERULAR FILTRATION RATE. ESTIMATED GFR IS NOT APPLICABLE FOR DIALYSIS PATIENTS. Collection Development Librarian ID Sultana Christiansen slightly ictericHEPATIC FUNCTION [id number] 03:52:00 Test Item Value Reference Range Comments TOTAL PROTEIN (BEAKER) (test 5.9 gm/dL 6.0-8.3 Specimen slightly hemolyzed kneh=139) ALBUMIN (BEAKER) (test 1.7 g/dL 3.5-5.0 Specimen slightly hemolyzed vjiu=4681) BILIRUBIN TOTAL (BEAKER) (test 3.2 mg/dL 0.2-1.2 Specimen slightly hemolyzed ptje=878) BILIRUBIN DIRECT (BEAKER) (test 2.1 mg/dL 0.1-0.5 Specimen slightly hemolyzed krri=184) ALKALINE PHOSPHATASE (BEAKER) 100 U/L 40-150 (test cnwp=695) AST (SGOT) (BEAKER) (test 31 U/L 5-34 Specimen slightly hemolyzed gkfy=726) ALT (SGPT) (BEAKER) (test 12 U/L 6-55 Specimen slightly hemolyzed hiii=230) Collection Development Librarian ID Sultana Christiansen slightly ictericLIPID [id number] 03:52:00 Test Item Value Reference Range Comments TRIGLYCERIDES (BEAKER) (test 60 mg/dL Specimen slightly hemolyzed domh=894) CHOLESTEROL (BEAKER) (test 55 mg/dL Specimen slightly hemolyzed dqfq=254) HDL CHOLESTEROL (BEAKER) (test 15 mg/dL njkk=023) LDL CHOLESTEROL CALCULATED 28 mg/dL (BEAKER) (test nhtc=936) Triglyceride Reference Range: Low Risk <150 Borderline 150- 199 High Risk 200-499 Very High Risk >=500Cholesterol Reference Range: Low Risk <200 Borderline 200-239 High Risk > 240HDL Cholesterol Reference Range: Low Risk >=60 High Risk <40LDL Cholesterol Reference Range: Optimal <100 Near Optimal 100-129 Borderline 130-159 High 160-189 Very High >=190 Collection Development Librarian ID - CHRISTINEpecimecely slightly ictericVANCOMYCIN LEVEL, [id number] 03:51:00 Test Item Value Reference Range Comments VANCOMYCIN RANDOM (BEAKER) (test zfpg=203) 52.3 ug/mL Reference Range: No NormalsOperator ID - SANDRA [id number] 03:49:00 Test Item Value Reference Range Comments MAGNESIUM (BEAKER) (test 2.1 mg/dL 1.6-2.6 Specimen slightly hemolyzed bewi=285) Collection Development Librarian ID - SANDRA [id number] 03:49:00 Test Item Value Reference Range Comments PHOSPHORUS (BEAKER) (test 3.0 mg/dL 2.3-4.7 Specimen slightly hemolyzed vkyz=974) Collection Development Librarian ID - SANDRA [id number] 03:36:00 Test Item Value Reference Range Comments FIBRINOGEN LEVEL (BEAKER) (test bxpl=363) 492 mg/dl 225-434 [id number] 03:36:00 Test Item Value Reference Range Comments PROTIME (BEAKER) (test snyz=547) 17.9 seconds 11.9-14.2 INR (BEAKER) (test ngel=303) 1.5 <=5.9 PARTIAL THROMBOPLASTIN TIME (BEAKER) (test 37.6 seconds 22.5-36.0 isdy=723) Effective 07/24/2018: PT Reference Range ChangeNew: 11.9-14.2 Previous: 11.7- 14.7RECOMMENDED COUMADIN/WARFARIN INR THERAPY RANGESSTANDARD DOSE: 2.0-3.0 Includes: PROPHYLAXIS for venous thrombosis, systemic embolization; TREATMENT for venous thrombosis and/or pulmonary embolus.HIGH RISK: Target INR is2.5-3.5 for patients wiht mechanical heart valves.PROTHROMBIN [id number] 03:35: 00 Test Item Value Reference Range Comments PROTIME (BEAKER) (test skku=866) 17.9 seconds 11.9-14.2 INR (BEAKER) (test bpxw=495) 1.5 <=5.9 Effective 07/24/2018: PT Reference Range ChangeNew: 11.9-14.2 Previous: 11.7- 14.7RECOMMENDED COUMADIN/WARFARIN INR THERAPY RANGESSTANDARD DOSE: 2.0-3.0 Includes: PROPHYLAXIS for venous thrombosis, systemic embolization; TREATMENT for venous thrombosis and/or pulmonary embolus.HIGH RISK: Target INR is2.5-3.5 for patients wiht mechanical heart valves.SODIUM, RANDOM [id number] 03:33: 00 Test Item Value Reference Range Comments SODIUM URINE (BEAKER) (test seux=192) < meq/L Reference Range: No NormalsOperator ID - BSCHLORIDE, RANDOM [id number] 03: 33:00 Test Item Value Reference Range Comments CHLORIDE URINE (BEAKER) (test nniw=685) < meq/L Reference Range: No NormalsOperator ID - BSCREATININE, RANDOM [id number] 03 :32:00 Test Item Value Reference Range Comments CREATININE URINE (BEAKER) (test elsm=681) 120.7 mg/dL Reference Range: No NormalsOperator ID - BSPROTEIN, RANDOM [id number] 03:32 :00 Test Item Value Reference Range Comments PROTEIN, URINE (BEAKER) (test gbkc=4919) 72 mg/dL 0-14 Collection Development Librarian ID - BSUREA NITROGEN, RANDOM [id number] 03:32:00 Test Item Value Reference Range Comments UREA NITROGEN URINE (BEAKER) (test laxa=805) 915 mg/dL Reference Range: No NormalsOperator ID - BSSTREP PNEUMONIAE [id number] 03 :31:00 Test Item Value Reference Range Comments STREP PNEUMONIAE ANTIGEN Presumptive negative for Presumptive negative for (BEAKER) (test pneumococcal pneumonia - pneumococcal pneumonia - gyir=2802) see comment see commen Presumptive negative for pneumococcal pneumonia, suggesting no current or recent pneumococcal infection. Infection due to S. pneumoniae cannot be ruled out since the antigen present in the sample may be below the detection limit of the test.LEGIONELLA ANTIGEN, [id number] 03:30:00 Test Item Value Reference Range Comments L. PNEUMOPHILA SEROGP 1 Negative - see Negative for L. UR AG (BEAKER) (test comment pneumophila serogroup 1 qnef=8379) antigen, suggesting no recent or current infection with this serogroup. Legionellosis cannot be ruled out since other serogroups and species may cause disease. POCT-GLUCOSE [id number] 00:50:00 Test Item Value Reference Range Comments POC-GLUCOSE METER (BEAKER) 87 mg/dL 70-110 : TESTED AT [facility] [address] (test ukxp=9053) [facility], [id number]: Collection Development Librarian/Cloth Shrinker LV=[id number] for CHARLEEN VILCHIS [id number] 09:16:00 Test Item Value Reference Range Comments MAGNESIUM (BEAKER) (test rcce=916) 1.7 mg/dL 1.6-2.6 [id number] 09:16:00 Test Item Value Reference Range Comments PHOSPHORUS (BEAKER) (test scvh=297) 4.2 mg/dL 2.3-4.7 BASIC METABOLIC [id number] 05:44:00 Test Item Value Reference Range Comments SODIUM (BEAKER) (test 137 meq/L 136-145 zlva=104) POTASSIUM (BEAKER) (test 3.6 meq/L 3.5-5.1 xgyz=986) CHLORIDE (BEAKER) (test 101 meq/L 98-107 rmbi=616) CO2 (BEAKER) (test 31 meq/L 22-29 lzec=504) BLOOD UREA NITROGEN 10 mg/dL 7-21 (BEAKER) (test nurn=465) CREATININE (BEAKER) (test 0.75 mg/dL 0.57-1.25 ofus=722) GLUCOSE RANDOM (BEAKER) 79 mg/dL 70-105 (test mqey=292) CALCIUM (BEAKER) (test 9.6 mg/dL 8.4-10.2 ovhy=051) EGFR (BEAKER) (test 105 mL/min/1.73 sq m ESTIMATED GFR IS NOT ktkz=9862) ACCURATE CREATININE CLEARANCE IN PREDICTING GLOMERULAR FILTRATION RATE. ESTIMATED GFR IS NOT APPLICABLE FOR DIALYSIS PATIENTS. CBC W/PLT COUNT & AUTO [id number] 05:29:00 Test Item Value Reference Range Comments WHITE BLOOD CELL COUNT (BEAKER) (test ltdx=266) 7.9 K/ L 3.5-10.5 RED BLOOD CELL COUNT (BEAKER) (test jopt=732) 5.45 M/ L 4.63-6.08 HEMOGLOBIN (BEAKER) (test hquu=753) 13.9 GM/DL 13.7-17.5 HEMATOCRIT (BEAKER) (test sshr=460) 42.6 % 40.1-51.0 MEAN CORPUSCULAR VOLUME (BEAKER) (test oefj=713) 78.2 fL 79.0-92.2 MEAN CORPUSCULAR HEMOGLOBIN (BEAKER) (test 25.5 pg 25.7-32.2 jcyb=281) MEAN CORPUSCULAR HEMOGLOBIN CONC (BEAKER) (test 32.6 GM/DL 32.3-36.5 hqxh=118) RED CELL DISTRIBUTION WIDTH (BEAKER) (test 16.1 % 11.6-14.4 lpmw=990) PLATELET COUNT (BEAKER) (test pprl=453) 400 K/CU MM 150-450 MEAN PLATELET VOLUME (BEAKER) (test huli=699) 10.0 fL 9.4-12.4 NUCLEATED RED BLOOD CELLS (BEAKER) (test 0 /100 WBC 0-0 aavf=336) NEUTROPHILS RELATIVE PERCENT (BEAKER) (test 58 % bpxx=843) LYMPHOCYTES RELATIVE PERCENT (BEAKER) (test 23 % fffj=128) MONOCYTES RELATIVE PERCENT (BEAKER) (test 13 % cqje=050) EOSINOPHILS RELATIVE PERCENT (BEAKER) (test 4 % sfqe=152) BASOPHILS RELATIVE PERCENT (BEAKER) (test 1 % wrte=017) NEUTROPHILS ABSOLUTE COUNT (BEAKER) (test 4.62 K/ L 1.78-5.38 bmbm=644) LYMPHOCYTES ABSOLUTE COUNT (BEAKER) (test 1.85 K/ L 1.32-3.57 rnjy=087) MONOCYTES ABSOLUTE COUNT (BEAKER) (test 0.99 K/ L 0.30-0.82 lagk=809) EOSINOPHILS ABSOLUTE COUNT (BEAKER) (test 0.33 K/ L 0.04-0.54 iiff=006) BASOPHILS ABSOLUTE COUNT (BEAKER) (test 0.09 K/ L 0.01-0.08 tmmb=319) IMMATURE GRANULOCYTES-RELATIVE PERCENT (BEAKER) 0 % 0-1 (test upfr=0539) TROPONIN [id number] 22:36:00 Test Item Value Reference Range Comments TROPONIN I (BEAKER) (test joev=699) 0.05 ng/mL 0.00-0.03 Troponin I (TnI) levels [...] acidosis, acute neurological disease, and persistent tachyarrhythmia.TROPONIN [id number] 16:36:00 Test Item Value Reference Range Comments TROPONIN I (BEAKER) (test fzix=966) 0.02 ng/mL 0.00-0.03 Troponin I (TnI) levels [...] neurological disease, and persistent tachyarrhythmia.TSH/FREE T4 IF [id number] 10:58 :00 Test Item Value Reference Range Comments THYROID STIMULATING HORMONE (BEAKER) (test 1.16 uIU/mL 0.35-4.94 fowj=472) TROPONIN [id number] 10:44:00 Test Item Value Reference Range Comments TROPONIN I (BEAKER) (test ohmp=602) 0.02 ng/mL 0.00-0.03 Troponin I (TnI) levels [...] NATRIURETIC PEPTIDE (BEAKER) (test 597 pg/mL 0-100 xqxj=316) [id number] 10:05:00 Test Item Value Reference Range Comments MAGNESIUM (BEAKER) (test pdvx=169) 1.7 mg/dL 1.6-2.6 MR, MRA, BRAIN, WITHOUT [id number] 08:26:00FINAL REPORT MRV Head CLINICAL HISTORY:Stroke, follow [...] remains concerning for venous thrombosis. Signed: Simran Rajaneport Verified Date/Time: 01/23/2019 08: 26:36 08: 26 AMBASIC METABOLIC [id number] 05:55:00 Test Item Value Reference Range Comments SODIUM (BEAKER) (test 137 meq/L 136-145 vjvg=264) POTASSIUM (BEAKER) (test 3.2 meq/L 3.5-5.1 axqg=494) CHLORIDE (BEAKER) (test 100 meq/L 98-107 ekqi=191) CO2 (BEAKER) (test 30 meq/L 22-29 gosu=188) BLOOD UREA NITROGEN 9 mg/dL 7-21 (BEAKER) (test sqyu=492) CREATININE (BEAKER) (test 0.80 mg/dL 0.57-1.25 omdy=860) GLUCOSE RANDOM (BEAKER) 93 mg/dL 70-105 (test jjpr=335) CALCIUM (BEAKER) (test 9.3 mg/dL 8.4-10.2 pdfg=247) EGFR (BEAKER) (test 97 mL/min/1.73 sq m ESTIMATED GFR IS NOT uysy=6189) ACCURATE CREATININE CLEARANCE IN PREDICTING GLOMERULAR FILTRATION RATE. ESTIMATED GFR IS NOT APPLICABLE FOR DIALYSIS PATIENTS. CBC W/PLT COUNT & AUTO [id number] 05:34:00 Test Item Value Reference Range Comments WHITE BLOOD CELL COUNT (BEAKER) (test dmhz=741) 7.3 K/ L 3.5-10.5 RED BLOOD CELL COUNT (BEAKER) (test sxba=725) 5.34 M/ L 4.63-6.08 HEMOGLOBIN (BEAKER) (test fhuw=766) 13.4 GM/DL 13.7-17.5 HEMATOCRIT (BEAKER) (test ljpj=522) 41.5 % 40.1-51.0 MEAN CORPUSCULAR VOLUME (BEAKER) (test pepr=494) 77.7 fL 79.0-92.2 MEAN CORPUSCULAR HEMOGLOBIN (BEAKER) (test 25.1 pg 25.7-32.2 ecoq=242) MEAN CORPUSCULAR HEMOGLOBIN CONC (BEAKER) (test 32.3 GM/DL 32.3-36.5 fkta=108) RED CELL DISTRIBUTION WIDTH (BEAKER) (test 15.6 % 11.6-14.4 vleu=272) PLATELET COUNT (BEAKER) (test oqve=272) 374 K/CU MM 150-450 MEAN PLATELET VOLUME (BEAKER) (test xnxt=904) 9.9 fL 9.4-12.4 NUCLEATED RED BLOOD CELLS (BEAKER) (test 0 /100 WBC 0-0 goeo=063) NEUTROPHILS RELATIVE PERCENT (BEAKER) (test 60 % zfpd=431) LYMPHOCYTES RELATIVE PERCENT (BEAKER) (test 23 % ekwr=601) MONOCYTES RELATIVE PERCENT (BEAKER) (test 11 % npcg=552) EOSINOPHILS RELATIVE PERCENT (BEAKER) (test 4 % pkjx=734) BASOPHILS RELATIVE PERCENT (BEAKER) (test 1 % gucv=858) NEUTROPHILS ABSOLUTE COUNT (BEAKER) (test 4.38 K/ L 1.78-5.38 irny=696) LYMPHOCYTES ABSOLUTE COUNT (BEAKER) (test 1.69 K/ L 1.32-3.57 tcxq=822) MONOCYTES ABSOLUTE COUNT (BEAKER) (test 0.77 K/ L 0.30-0.82 udhv=084) EOSINOPHILS ABSOLUTE COUNT (BEAKER) (test 0.32 K/ L 0.04-0.54 svag=324) BASOPHILS ABSOLUTE COUNT (BEAKER) (test 0.08 K/ L 0.01-0.08 hkdm=355) IMMATURE GRANULOCYTES-RELATIVE PERCENT (BEAKER) 0 % 0-1 (test setp=7169) [id number] 20:49:00 Test Item Value Reference Range Comments POTASSIUM (BEAKER) (test eonx=649) 2.8 meq/L 3.5-5.1 MR, BRAIN, WITHOUT [id number] 19:25:00Reason for exam:->Ischemic Stroke EvaluationFINAL REPORT MR, [...] mastoid effusion. Orbits: Globes are intact. Calvarium \\T\\ scalp: Unremarkable. IMPRESSION:Multifocal acute infarcts within the left frontal, temporal, and parietal lobes.No acute intracranial hemorrhage. These findings were discussed with Dr.ALOK RICH on 01/22/2019 7:14 PM. Signed: Simran Rajan Verified Date/Time: 19:25:11 Electronically signed by: SIMRAN RAJAN MD on 07:25 [facility], [facility] [id number] 19:16:00FINAL REPORT CLINICAL HISTORY: Neuro deficit, acute, [...] on 01/22/2019 7:14 PM. Signed: Simran Rajan MDReport Verified Date/Time: 01/22/2019 19:16:06 AS B. [facility]AN CENTERT, CAROTID, [id number] 19:16:00FINAL REPORT CLINICAL HISTORY: Neuro deficit, [...] Rajan MDReport Verified Date/Time: 01/22/2019 19:16: 06 [id number] 11:47:00 Test Item Value Reference Range Comments RPR SCREEN (BEAKER) (test cfvv=359) Nonreactive Nonreactive [id number] 08:23:00 Test Item Value Reference Range Comments MAGNESIUM (BEAKER) (test ildb=867) 1.7 mg/dL 1.6-2.6 FastingHEMOGLOBIN [id number] 08:10:00 Test Item Value Reference Range Comments HEMOGLOBIN A1C (BEAKER) (test tpis=785) 5.7 % 4.3-6.1 FastingLIPID [id number] 05:15:00 Test Item Value Reference Range Comments TRIGLYCERIDES (BEAKER) (test tjyc=156) 56 mg/dL CHOLESTEROL (BEAKER) (test avuk=760) 79 mg/dL HDL CHOLESTEROL (BEAKER) (test ncma=837) 23 mg/dL LDL CHOLESTEROL CALCULATED (BEAKER) (test rdnp=230) 45 mg/dL Triglyceride Reference Range: Low Risk <150 Borderline 150- 199 High Risk 200-499 Very High Risk >=500Cholesterol Reference Range: Low Risk <200 Borderline 200-239 High Risk > 240HDL Cholesterol Reference Range: Low Risk >=60 High Risk <40LDL Cholesterol Reference Range: Optimal <100 Near Optimal 100-129 Borderline 130-159 High 160-189 Very High >=190 FastingTROPONIN [id number] 05:11:00 Test Item Value Reference Range Comments TROPONIN I (BEAKER) (test cvim=135) 0.02 ng/mL 0.00-0.03 Troponin I (TnI) levels [...] neurological disease, and persistent tachyarrhythmia.FastingVITAMIN B12 AND [id number] 04:01:00 Test Item Value Reference Range Comments VITAMIN B12 (BEAKER) (test aezg=736) 1973 pg/mL 213-816 FOLATE (BEAKER) (test luop=410) 18.5 ng/mL >=7.0 TSH/FREE T4 IF [id number] 03:48:00 Test Item Value Reference Range Comments THYROID STIMULATING HORMONE (BEAKER) (test 1.38 uIU/mL 0.35-4.94 yrpu=021) TROPONIN [id number] 00:15:00 Test Item Value Reference Range Comments TROPONIN I (BEAKER) (test lhtd=129) 0.02 ng/mL 0.00-0.03 Troponin I (TnI) levels [...] acute neurological disease, and persistent tachyarrhythmia.BASIC METABOLIC [id number] 00:11:00 Test Item Value Reference Range Comments SODIUM (BEAKER) (test 133 meq/L 136-145 euyr=459) POTASSIUM (BEAKER) (test 2.7 meq/L 3.5-5.1 eskj=592) CHLORIDE (BEAKER) (test 95 meq/L 98-107 whbi=771) CO2 (BEAKER) (test 28 meq/L 22-29 qrrh=794) BLOOD UREA NITROGEN 9 mg/dL 7-21 (BEAKER) (test oicx=538) CREATININE (BEAKER) (test 0.82 mg/dL 0.57-1.25 dsvf=514) GLUCOSE RANDOM (BEAKER) 139 mg/dL 70-105 (test ujkc=336) CALCIUM (BEAKER) (test 9.3 mg/dL 8.4-10.2 mdpu=745) EGFR (BEAKER) (test 95 mL/min/1.73 sq m ESTIMATED GFR IS NOT esia=2349) ACCURATE CREATININE CLEARANCE IN PREDICTING GLOMERULAR FILTRATION RATE. ESTIMATED GFR IS NOT APPLICABLE FOR DIALYSIS PATIENTS. Specimen slightly ictericPROTHROMBIN [id number] 23:48:00 Test Item Value Reference Range Comments PROTIME (BEAKER) (test rnth=503) 14.8 seconds 11.9-14.2 INR (BEAKER) (test hxlx=175) 1.2 <=5.9 Effective 07/24/2018: PT Reference Range ChangeNew: 11.9-14.2 Previous: 11.7- 14.7RECOMMENDED COUMADIN/WARFARIN INR THERAPY RANGESSTANDARD DOSE: 2.0-3.0 Includes: PROPHYLAXIS for venous thrombosis, systemic embolization; TREATMENT for venous thrombosis and/or pulmonary embolus.HIGH RISK: Target INR is2.5-3.5 for patients wiht mechanical heart valves.RAD, CHEST, 1 VIEW, NON [id number] 23:46:00Reason for exam:->strokeShould this be performed at the bedside?-& gt;YesFINAL REPORT INDICATION: stroke TECHNIQUE: Chest radiograph, single view, portable technique. FINDINGS / IMPRESSION: Patient is status post median sternotomy.Heart shadow is enlarged and there is a small right pleural effusion.No overt pulmonary edema, discrete pneumonia, or pneumothorax is demonstrated.Osseous structures unremarkable. Signed: Shyam Granteport VerifiedDate/Time: 01/21/2019 23:46:27 Reading Location: [facility] B1 [id number] Consult Reading Room CBC W/PLT COUNT & AUTO [id number] 23:39:00 Test Item Value Reference Range Comments WHITE BLOOD CELL COUNT (BEAKER) (test ttek=409) 8.0 K/ L 3.5-10.5 RED BLOOD CELL COUNT (BEAKER) (test jdzs=815) 5.36 M/ L 4.63-6.08 HEMOGLOBIN (BEAKER) (test bobz=587) 13.5 GM/DL 13.7-17.5 HEMATOCRIT (BEAKER) (test jkrt=949) 41.6 % 40.1-51.0 MEAN CORPUSCULAR VOLUME (BEAKER) (test xbkt=100) 77.6 fL 79.0-92.2 MEAN CORPUSCULAR HEMOGLOBIN (BEAKER) (test 25.2 pg 25.7-32.2 gyol=661) MEAN CORPUSCULAR HEMOGLOBIN CONC (BEAKER) (test 32.5 GM/DL 32.3-36.5 bgev=531) RED CELL DISTRIBUTION WIDTH (BEAKER) (test 15.1 % 11.6-14.4 ycwr=837) PLATELET COUNT (BEAKER) (test bceu=649) 376 K/CU MM 150-450 MEAN PLATELET VOLUME (BEAKER) (test tyag=257) 9.7 fL 9.4-12.4 NUCLEATED RED BLOOD CELLS (BEAKER) (test 0 /100 WBC 0-0 tuaf=380) NEUTROPHILS RELATIVE PERCENT (BEAKER) (test 66 % uibq=052) LYMPHOCYTES RELATIVE PERCENT (BEAKER) (test 19 % iowf=567) MONOCYTES RELATIVE PERCENT (BEAKER) (test 10 % okxm=518) EOSINOPHILS RELATIVE PERCENT (BEAKER) (test 3 % ifbx=526) BASOPHILS RELATIVE PERCENT (BEAKER) (test 1 % ghmq=171) NEUTROPHILS ABSOLUTE COUNT (BEAKER) (test 5.30 K/ L 1.78-5.38 wxea=082) LYMPHOCYTES ABSOLUTE COUNT (BEAKER) (test 1.52 K/ L 1.32-3.57 fwoy=516) MONOCYTES ABSOLUTE COUNT (BEAKER) (test 0.78 K/ L 0.30-0.82 pnoq=625) EOSINOPHILS ABSOLUTE COUNT (BEAKER) (test 0.24 K/ L 0.04-0.54 sikd=337) BASOPHILS ABSOLUTE COUNT (BEAKER) (test 0.08 K/ L 0.01-0.08 hipl=966) IMMATURE GRANULOCYTES-RELATIVE PERCENT (BEAKER) 1 % 0-1 (test hbcy=9322)
--- OUTSIDE RECORDS SUMMARY | 2019-05-30 12:50 | XMS REPORT | Summary of Care ---
:1955 Author Organization [facility] Address [address] [place] [address] Care Team Providers Name Role Phone Kinjal Edmond MD Primary Care Provider Reason for Visit Reason Comments Refill Request Encounter Details Date Type Department Care Team Description 05/26/2019 Refill [facility] Family Medicine Kinjal Edmond MD Refill Request - [address] [place] [phone] [place] [address] Allergies No Known Allergiesdocumented as of this encounter (statuses as of 05/26/2019) Medications Medication Sig Dispensed Refills Start Date End Date Status vitamin B-12 Take 1,000 0 Active (VITAMIN B-12) mcg by mouth 1,000 mcg tablet daily. apixaban (ELIQUIS) Take 1 tablet 60 tablet 5 11/12/2018 Active 5 mg by mouth 2 tabletIndications: (two) times Chronic atrial daily. fibrillation metOLazone 5 mg 1 tablet PO 10 tablet 5 11/12/2018 Active tabletIndications: TWICE WEEKLY Medication refill ON TU AND SUN magnesium oxide 400 Take 1 tablet 30 tablet 11/12/2018 Active mg (241.3 mg by mouth magnesium) daily. tabletIndications: Medication refill KCL 20 mEq Take 1 tablet 30 tablet 11/12/2018 Active tabletIndications: by mouth Medication refill daily. FOLIC ACID 1 mg TAKE ONE 30 tablet 5 12/06/2018 Active tabletIndications: TABLET BY Folate deficiency MOUTH DAILY FLUTICASONE SPRAY 2 16 g 0 12/24/2018 Active PROPIONATE 50 SPRAYS INTO mcg/actuation nasal EACH NOSTRIL sprayIndications: EVERY DAY Medication refill gabapentin 300 mg TAKE ONE 90 capsule 1 12/24/2018 Active capsuleIndications: CAPSULE BY Medication refill MOUTH THREE TIMES A DAY diltiazem 120 mg 24 Take 1 90 capsule 1 01/15/2019 Active hr capsule by capsuleIndications: mouth daily. Essential hypertension metoprolol Take 1 tablet 180 tablet 0 02/21/2019 Active succinate XL 100 mg by mouth 2 24 hr (two) times tabletIndications: daily. Medication refill FUROSEMIDE 40 mg TAKE 1 TABLET 180 tablet 1 05/26/2019 Active tabletIndications: BY MOUTH Medication refill EVERY MORNING AND 1 TABLET EVERY EVENING furosemide (LASIX) Take 1 tablet 180 tablet 1 01/15/2019 05/26/2019 Discontinued 40 mg by mouth tabletIndications: every morning Medication refill and evening. documented as of this encounter (statuses as of 05/26/2019) Active Problems Problem Noted Date Low TSH level 11/13/2018 Cholelithiasis 06/04/2018 Fatty liver 06/04/2018 Pleural effusion on right 06/04/2018 Nephrolithiasis 06/04/2018 Alcohol use 05/13/2018 Red eyes 05/13/2018 Hypokalemia 10/11/2017 Acute on chronic diastolic congestive heart failure 10/10/2017 Hypotension 09/24/2017 COPD (chronic obstructive pulmonary disease) 07/19/2017 Atrial fibrillation with RVR 06/11/2017 Bilateral renal cysts 10/07/2016 Renal insufficiency 10/04/2016 Pulmonary nodules 04/12/2016 Overview: DUE FOR FOLLOW-UP SCREENING CHEST CT 03/2017. Aortic aneurysm, thoracic 04/12/2016 Heart disease 04/12/2016 Erythrocytosis 12/27/2015 Essential hypertension 12/24/2015 Chronic low back pain, unspecified back pain laterality, with sciatica 2015 presence unspecified Chronic pain of both knees 12/24/2015 Tobacco use 12/24/2015 B12 deficiency Folic acid deficiency Abnormal LFTs documented as of this encounter (statuses as of 05/26/2019) Social History Tobacco Use Types Packs/Day Years Used Date Current Every Day Smoker 1.5 30 Smokeless Tobacco: Never Used Alcohol Use Drinks/Week oz/Week Comments Yes 7 Cans of beer 7.0 0 Standard drinks or equivalent Sex Assigned at Date Recorded Not on file Job Start Date Occupation Industry Not on file Not on file Not on file Travel History Travel Start Travel End No recent travel history available. documented as of this encounter Last Filed Vital Signs Not on filedocumented in this encounter Plan of Treatment Health Maintenance Due Date Last Done Comments PNEUMOCOCCAL 0-64 YEARS COMBINED SERIES (1 of 1 - 1960 PPSV23) DTaP,Tdap,and Td Vaccines (1 - Tdap) 1965 COLONOSCOPY 2004 Zoster Recombinant Vaccine (SHINGRIX) (1 of 2) 2004 LUNG CANCER SCREEN: Recommended for age 55-80 with 30 04/07/2017 04/07/2016 + pack year history INFLUENZA VACCINE (#1) 2018 HEPATITIS C (HCV) SCREEN Completed 03/28/2016 documented as of this encounter Goals Goal Patient Goal Associated Recent Patient-Stated? Author Type Problems Progress Quit using Tobacco Use No [place], tobacco Wondiful A, (cigarettes, MD smokeless, etc) documented as of this encounter Results Not on filedocumented in this encounter Visit Diagnoses Diagnosis Medication refill Issue of repeat prescriptions documented in this encounter Insurance Payer Benefit Plan / Group Subscriber ID Effective Dates Phone Address Type MULTIPLAN MULTIPL[employer]IC [id number] 2018-Present PPO documented as of this encounter
--- OUTSIDE RECORDS SUMMARY | 2019-05-30 12:50 | XMS REPORT | Summary of Care ---
:1955 Author Organization [facility] [place] [address] Care Team Providers Name Role Phone Betsy Carvalho MD Primary Care Provider Reason for Visit Reason Comments Follow Up Consult, Test & Treat (Routine) Status Reason Specialty Diagnoses / Referred By Referred To Procedures Contact Contact Incomplete Thoracic Surgery Diagnoses POV w CXR - s/w [facility] at [facility] [place] Referral, Self Fernando Andrews, Procedures [place] OFFICE CONSULTATION NEW/ESTAB PATIENT 15 MIN POST OP [address] [place] [address] [address] [place] [address] Encounter Details Date Type Department Care Team Description 05/08/2019 Office Visit [facility] Fernando Andrews MD Follow Up Thoracic Surgery [address] [place] [address] [address] 6[address] Floor, [address] [place] [address] [place] [address] [phone] Allergies No Known Allergiesdocumented as of this encounter (statuses as of 05/09/2019) Medications Medication Sig Dispensed Refills Start Date End Date Status amoxicillin (AMOXIL) 875 Take 875 mg 0 Active MG tablet by mouth daily. Apixaban (ELIQUIS) 5 MG Take 5 mg by 0 Active TABS mouth daily. hydrochlorothiazide Take 12.5 mg 0 Active (MICROZIDE) 12.5 MG by mouth capsule daily. gabapentin (NEURONTIN) 300 Take 300 mg 0 Active MG capsule by mouth daily. lisinopril (PRINIVIL, Take 10 mg 0 Active ZESTRIL) 10 MG tablet by mouth daily. amiodarone (PACERONE) 400 Take 400 mg 0 04/26/2019 07/25/2019 Active MG tablet by mouth daily. fluconazole (DIFLUCAN) 200 Take 200 mg 0 04/26/2019 Active MG tablet by mouth daily. atorvastatin (LIPITOR) 80 Take 80 mg 0 04/26/2019 Active MG tablet by mouth daily. quetiapine (SEROQUEL) 25 Take 25 mg 0 04/26/2019 Active MG tablet by mouth daily. Night metoprolol (LOPRESSOR) 25 Take 25 mg 0 04/26/2019 Active MG tablet by mouth daily. furosemide (LASIX) 40 MG Take 40 mg 0 04/26/2019 Active tablet by mouth daily. folic acid (FOLVITE) 1 MG Take 1 mg by 0 04/26/2019 Active tablet mouth daily. potassium chloride SA 0 04/26/2019 Active (K-DUR, KLOR-CON M20) 20 MEQ tablet midodrine (PROAMATINE) 5 Take 5 mg by 0 04/26/2019 Active MG tablet mouth daily. pantoprazole (PROTONIX) 40 Take 40 mg 0 04/26/2019 Active MG tablet by mouth daily. documented as of this encounter (statuses as of 05/09/2019) Active Problems Not on filedocumented as of this encounter (statuses as of 05/09/2019) Social History Tobacco Use Types Packs/Day Years Used Date Never Assessed Sex Assigned at Date Recorded Not on file Job Start Date Occupation Industry Not on file Not on file Not on file Travel History Travel Start Travel End No recent travel history available. documented as of this encounter Last Filed Vital Signs Vital Sign Reading Time Taken Comments Blood Pressure 99/62 05/08/2019 10:52 AM CDT Pulse 92 05/08/2019 10:52 AM CDT Temperature 37.2 C (98.9 F) 05/08/2019 10:52 AM CDT Respiratory Rate - - Oxygen Saturation - - Inhaled Oxygen Concentration - - Weight 70.8 kg (156 lb) 05/08/2019 10:52 AM CDT Height 172.7 cm (5' 8") 05/08/2019 10:52 AM CDT Body Mass Index 23.72 05/08/2019 10:52 AM CDT documented in this encounter Progress Notes Fernando Andrews MD - 05/08/2019 11:30 AM CDTThoracic Surgery Attending Note I, Dr. Fernando Andrews, personally performed the services described in this documentation, ascribed by Adelaide Lambert, Thoracic Surgery GEOSCIENTIST, in my presence, and it is both accurate and complete. In brief, he is a 63 year old man who was admitted from an outside hospital on with bilateral pleural effusions. His left effusion resolved with pleural drainage. His right sided effusion failed fibrinolytics and a repeat pleural fluid analysis was positive for Gram negative rods. Consequently, on , I performed a right VATS decortication. Cultures were negative. Pathology demonstrated chronic fibrosing pleuritis; there was no evidence of malignancy. He was discharged to a SNF and returns for his postoperative visit. He denies pain, fevers, chills, cough, dyspnea or other complaints. He states he would like to go home. He remains on tube feeds. His chest tube stitch was removed. A chest xray was obtained today. The images were reviewed by me. A stable postoperative appearanceis noted. In summary, Mr. Vergara is doing well 3 weeks after a right VATS decortication for a loculated effusion. He will followup with me on an as needed basis. Fernando Andrews M.D. Adelaide Rodriguez NP-C - 05/08/2019 11:30 AM CDT [facility] THORACIC SURGERY CLINIC FOLLOW UP SUBJECTIVE: Tex Vergara is a 63 y.o. male who presents today for 2 week follow-up s/p flexible bronchoscopy, right thoracoscopic total lung decortication and washout conducted on 04/14/19. Briefly, Mr. Vergara was admitted to an outside hospital for multifocal pneumonia and worsening bilateral pleural effusions. He was transferred to [facility] on 03/20/[address] chest revealing bilateral pleural effusions. Bilateral pleural pigtail catheters along with thrombolytics through a RT-sidedchest tube helped his drainage, but due to his recurrent right-sided pleural effusions and gram stain that returned positive for gram-negative rods it was recommended by Dr. Andrews to proceed with decortication and washout. He returns today after surgery and hospital stay, stating that he is doing well. Path reports revealed samples from the right parietal pleura, RUL, RML and RLL are chronic fibrosing pleuritis. He is not currently taking any pain medications and is still being tube fed. He wants to know when he can leave his SNF; he would like to go home to his family. He denies any cough, fever, chills , skin changes,shortness of breath or any additional complaints at this time. REVIEW OF SYSTEMS: 14 point review of symptoms is negative except for the complaints noted above. PHYSICAL EXAM: Blood pressure 99/62, pulse 92, temperature 98.9 F (37.2 C), temperature source Oral, height 5' 8" (1.727 m), weight 156 lb (70.8 kg). Body mass index is 23.72 kg/m. Overall well-appearing, comfortable, and in no distress. No difficulty in climbing upon the exam room table. Sclera are anicteric and mucous membrane are moist. No evidence of cervical, supraclavicular, or axillary lymphadenopathy. Symmetric bilateral chest excursion, with no chest wall tenderness. Clear breath sounds in all posterior bilateral lung contreras. Normal cardiac examination without murmurs or rubs. Right thoracoscopic incisions well Approximated and healed. No redness or drainage noted. Abdomen is soft, nontender, and non distended. No upper extremity swelling or clubbing. No lower extremity edema. Skin exam is normal. Neurologic exam is nonfocal and gait is normal. PROCEDURE: 04/14/2019 1. Bronchoscopy and bronchoalveolar lavage. 2. Right thoracoscopic total lung decortication and washout PATHOLOGY: 04/14/19: DIAGNOSIS A. PLEURA, RIGHT, PARIETAL PLEURA, DECORTICATION: - CHRONIC FIBROSING PLEURITIS. - NEGATIVE FOR MALIGNANCY B. LUNG, RIGHT LOWER LOBE, DECORTICATION: - CHRONIC FIBROSING PLEURITIS WITH FOCAL ACUTE INFLAMMATION. - LUNG PARENCHYMA WITH FEATURES OF ORGANIZING PNEUMONIA. - NEGATIVE FOR MALIGNANCY C. LUNG, RIGHT MIDDLE LOBE, DECORTICATION: - CHRONIC FIBROSING PLEURITIS. - NEGATIVE FOR MALIGNANCY. D. LUNG, RIGHT UPPER LOBE, DECORTICATION: - CHRONIC FIBROSING PLEURITIS. - NEGATIVE FOR MALIGNANCY. - LUNG PARENCHYMA WITH NO SIGNIFICANT DIAGNOSTIC ALTERATION. Signing Pathologist Direct Phone Line: [phone] RIM STUDIES: CXR (05/08/19): Stable postoperative apperance IMPRESSION & RECOMMENDATIONS: Tex Vergara is a 63 y.o. male here for 2 week follow-up s/p flexible bronchoscopy, right thoracoscopic total lung decortication and washout conducted on 04/14/19. Patient was seen and assessed today in clinic. He is doing well since surgery and states that he is not currently experiencing any pain. Sutures were removed today at his chest tube sites. The incisionsites are healing well and show no signs of infection. An order for a chest x-ray was given to him; he is going downstairs to receive the x-ray after the clinic visit. Additionally, he is instructed tofollow-up with the physician in charge of the SNF placement to coordinate discharge from the facility. He is instructed to return to the clinic here on an as needed basis and call if any additional symptoms or concerns arise. He verbalized agreement with treatment plan and has no additional concerns at this time. IAdelaide NP-C, am scribing for, and in the presence of, Dr. Andrews. LYLY Ledezma Thoracic Surgery documented in this encounter Plan of Treatment Health Maintenance Due Date Last Done Comments COLON CANCER SCREENING: COLONOSCOPY 1955 TETANUS SHOT (ADULT) 1969 HEPATITIS C SCREENING 1972 HIV SCREENING 1972 FLU VACCINE > 6 MONTHS 09/26/2018 documented as of this encounter Results Not on filedocumented in this encounter Visit Diagnoses Diagnosis Pleural effusion - Primary Unspecified pleural effusion documented in this encounter Insurance Payer Benefit Plan / Subscriber ID Effective Dates Phone Address Type Group [facility] - xxxxxxxxxxx 2019-Presen [address] [place] [address] documented as of this encounter
--- OUTSIDE RECORDS SUMMARY | 2019-05-30 12:51 | XMS REPORT | Summary of Care ---
:1955 Author Organization [facility] Address [address] [place] [address] Care Team Providers Name Role Phone Kinjal Edmond MD Primary Care Provider Reason for Visit Reason Comments Refill Request Encounter Details Date Type Department Care Team Description 05/27/[address] [facility] Family Medicine Kinjal Edmond MD Refill Request - [address] [place] [address] [place] [address] Allergies No Known Allergiesdocumented as of this encounter (statuses as of 05/27/2019) Medications Medication Sig Dispensed Refills Start Date End Date Status vitamin B-12 (VITAMIN Take 1,000 mcg by 0 Active B-12) 1,000 mcg tablet mouth daily. apixaban (ELIQUIS) 5 Take 1 tablet by 60 tablet 5 11/12/2018 Active mg tabletIndications: mouth 2 (two) Chronic atrial times daily. fibrillation metOLazone 5 mg 1 tablet PO TWICE 10 tablet 5 11/12/2018 Active tabletIndications: WEEKLY ON Medication refill AND FRI magnesium oxide 400 mg Take 1 tablet by 30 tablet 11/12/2018 Active (241.3 mg magnesium) mouth daily. tabletIndications: Medication refill KCL 20 mEq Take 1 tablet by 30 tablet 11/12/2018 Active tabletIndications: mouth daily. Medication refill FOLIC ACID 1 mg TAKE ONE TABLET 30 tablet 5 12/06/2018 Active tabletIndications: BY MOUTH DAILY Folate deficiency FLUTICASONE PROPIONATE SPRAY 2 SPRAYS 16 g 0 12/24/2018 Active 50 mcg/actuation nasal INTO EACH NOSTRIL sprayIndications: EVERY DAY Medication refill gabapentin 300 mg TAKE ONE CAPSULE 90 capsule 1 12/24/2018 Active capsuleIndications: BY MOUTH THREE Medication refill TIMES A DAY diltiazem 120 mg 24 hr Take 1 capsule by 90 capsule 1 01/15/2019 Active capsuleIndications: mouth daily. Essential hypertension metoprolol succinate Take 1 tablet by 180 tablet 0 02/21/2019 Active XL 100 mg 24 hr mouth 2 (two) tabletIndications: times daily. Medication refill FUROSEMIDE 40 mg TAKE 1 TABLET BY 180 tablet 1 05/26/2019 Active tabletIndications: MOUTH EVERY Medication refill MORNING AND 1 TABLET EVERY EVENING documented as of this encounter (statuses as of 05/27/2019) Active Problems Problem Noted Date Low TSH [...] as of this encounter (statuses as of 05/27/2019) Social History Tobacco Use Types Packs/Day Years [...] filedocumented in this encounter Plan of Treatment Date Type Specialty Care Team Description 05/27/2019 Telemedicine Visit Family Medicine Kinjal Edmond MD [address] [place] [phone] Health Maintenance Due Date Last Done Comments [...] Problems Progress Quit using Tobacco Use No neftali Edmond, (cigarettes, smokeless, etc) documented as of this encounter Results Not on filedocumented in this encounter Visit Diagnoses Diagnosis Medication refill Issue of repeat prescriptions documented in this encounter Insurance Payer Benefit Plan / Group Subscriber ID Effective Dates Phone Address Type MULTIPLAN MULTIPL[employer] GENERIC [id number] 2018-Present PPO documented as of this encounter
--- OUTSIDE RECORDS SUMMARY | 2019-05-30 12:51 | XMS REPORT | Summary of Care ---
:1955 Author Organization [facility] Address [address] [place] [address] Care Team Providers Name Role Phone Dominic Sanchez Primary Care Provider Reason for Visit Reason Comments Erroneous encounter-disregard Encounter Details Date Type Department Care Team Description 05/27/2019 Telemedicine Visit [facility] Feli Joshrhys ERRONEOUS Pediatric and Adult MD Thanh ENCOUNTER--DISREGAR Primary Care- [facility] [address] [facility] [place] (Primary Dx) [place] [address] [facility] [address] , [address] [place], [place] [phone] [address] (Fax) [phone] Allergies No Known Allergiesdocumented as of this encounter (statuses as of 05/27/2019) Medications Medication Sig Dispensed Refills Start Date End Date Status vitamin B-12 (VITAMIN Take 1,000 mcg by 0 Active B-12) 1,000 mcg tablet mouth daily. apixaban (ELIQUIS) 5 Take 1 tablet by 60 tablet 11/12/2018 Active mg tabletIndications: mouth 2 (two) Chronic atrial times daily. fibrillation metOLazone 5 mg 1 tablet PO TWICE 10 tablet 11/12/2018 Active tabletIndications: WEEKLY ON Medication refill AND FRI magnesium oxide 400 mg Take 1 tablet by 30 tablet 11/12/2018 Active (241.3 mg magnesium) mouth daily. tabletIndications: Medication refill KCL 20 mEq Take 1 tablet by 30 tablet 11/12/2018 Active tabletIndications: mouth daily. Medication refill FOLIC ACID 1 mg TAKE ONE TABLET 30 tablet 12/06/2018 Active tabletIndications: BY MOUTH DAILY Folate [...] Signs Not on filedocumented in this encounter Progress Notes Kinjal Edmond MD - 05/27/2019 3:30 PM CDTPatient has new PCP: Dominic Sanchez MD in [place] (Internal Medicine), so he declined hospital follow-up telehealth visit and is seeing Dr. Sanchez later this week. PCP updated in [facility]. Appointment cancelled. documented in this encounter Plan of Treatment [...] filedocumented in this encounter Visit Diagnoses Diagnosis ERRONEOUS ENCOUNTER--DISREGARD - Primary documented in this encounter documented as of this encounter
--- OUTSIDE RECORDS SUMMARY | 2019-05-30 12:51 | XMS REPORT | Summary of Care ---
:1955 Author Organization [facility] Address [address] [place] [id number] Care Team Providers Name Role Phone Dominic Sanchez Primary Care Provider Reason for Visit Reason Comments Refill Request Encounter Details Date Type Department Care Team Description 05/29/2019 Refill [facility] Family Medicine Kinjal Edmond MD Refill Request - [address] [address] [place] [address] Allergies No Known Allergiesdocumented as of this encounter (statuses as of 05/29/2019) Medications Medication Sig Dispensed Refills Start Date [...] as of this encounter (statuses as of 05/29/2019) Active Problems Problem Noted Date Low TSH [...] as of this encounter (statuses as of 05/29/2019) Social History Tobacco Use Types Packs/Day Years [...] Problems Progress Quit using Tobacco Use No [place], tobacco Wondiful A, (cigarettes, MD smokeless, etc) documented as of this encounter Results Not on filedocumented in this encounter Visit Diagnoses Diagnosis Medication refill Issue of repeat prescriptions documented in this encounter Insurance Payer Benefit Plan / Group Subscriber ID Effective Dates Phone Address Type MULTIPLAN MULTIPLAN GENERIC [id number] 2018-Present PPO documented as of this encounter
[2019-05-30 13:03] LABS: Absolute Lymphocytes (CBC) 1.7 K/uL (0.7-4.9); Basophils % 0.7 % (0-1.3); Hematocrit 36.3 % (39.6-49.0); Lymphocytes % 12.1 % (15.3-44.8); MPV 9.1 fL (7.6-11.3); RBC Red Blood Cell Count 4.39 M/uL (4.33-5.43)
[2019-05-30 13:10] LABS: Protime INR 1.31
[2019-05-30] MEDS ORDERED: FUROSEMIDE 40 MG/4 ML VIAL ONE (13:10)
[2019-05-30] MEDS ORDERED: FUROSEMIDE 20 MG/ 2ML VIAL ONE (13:10)
[2019-05-30 13:30] LABS: Urine Blood 2+ (NEG); Urine Glucose NEGATIVE (NEG); Urine Protein NEGATIVE (NEG); Urine pH 6.5 (5.0-7.0)
--- NOTE | 2019-05-30 13:39 | RAD REPORT ---
EXAM DESCRIPTION: RAD - Chest Single View - 05/30/2019 1:16 pm CLINICAL HISTORY: DYSPNEA COMPARISON: Portable chest March 19, ultrasound March 17 TECHNIQUE: AP portable chest image was obtained 05/30/2019 1:16 pm . FINDINGS: A 6-8 centimeter cystic cavity has developed in the right lung base. Pleural effusion is s till present. Prior ultrasound showed loculation of pleural effusions. It is unknown if the patient u nderwent any interventional procedure at an outside facility. There are no imaging studies at this [facility] to indicate an interventional procedure. Right base cystic cavity could be from a pneumothorax . Cystic cavity of the lung parenchyma related to infectious/inflammatory process is possible. There may be communication between a loculated pleural cystic cavity in the lung parenchyma. Trachea remains midline. Small left pleural effusion is present. Central vasculature and lung marking s are mildly prominent. Heart size is upper normal. Patient likely has right middle lobe atelectasis. No left-sided pneumothorax. No acute bony abnormality seen. No acute aortic findings suspected. IMPRESSION: Large cystic cavity has developed in the right lung base. No history available regarding possible intervention of previously detailed loculated right base pleural effusion. The cystic cavity could be a contain pneumothorax. Communication between the lung parenchyma and a lo culated pleural cavity could account for the development of air. Central vasculature and lung markings are prominent. Patient may have a component of failure or volum e overload. Right middle lobe atelectasis.
[2019-05-30 13:40] LABS: Albumin 1.4 g/dL (3.4-5.0); Bilirubin Direct 0.5 mg/dL (0-0.2); Bilirubin Total 0.9 mg/dL (0.2-1.0); Protein, Total 6.8 g/dL (6.4-8.2); Troponin (Emerg Dept Use Only) 0.06 ng/mL (0.0-0.045)
[2019-05-30 13:43] LABS: Urine Bacteria <20 /HPF (NONE SEEN); Urine Culture Reflex Order REFLEXED; Urine RBC <5 /HPF (NONE SEEN)
[2019-05-30] MEDS ORDERED: CEFTRIAXONE/SWI 1gm 1 GM/10 ML SYR ONE (13:45)
[2019-05-30] MEDS ORDERED: VANCOMYCIN/NS 1 gm 1 GM/250 ML BAG IVPB ONE ×2 (13:45→14:00)
[2019-05-30 13:46] LABS: Potassium 2.7 mmol/L (3.5-5.1)
[2019-05-30 14:08] LABS: Anisocytosis 1+; Blood Morphology Comment NOTED (NOT SEEN); Platelet Estimate ADEQ; Urine White Blood Cell Casts OK
[2019-05-30] MEDS ORDERED: LACTULOSE 20 GM/30 ML UCUP ONE (14:15)
[2019-05-30] MEDS ORDERED: KCL 20 MEQ/100 mL IVPB 20 MEQ/100 ML BAG IV ONE (14:15)
[2019-05-30] MEDS ORDERED: ALBUMIN HUMAN 25% 100 ML IV ONE (14:21)
--- NOTE | 2019-05-30 14:41 | RAD REPORT ---
EXAM DESCRIPTION: CT - Chest Abdomen Pelvis W Cont - 05/30/2019 2:07 pm CLINICAL HISTORY: Abdominal distention;Dyspnea COMPARISON: Chest dated 03/17/2019; Chest Single View dated 05/30/2019; Chest Single View dated 03/18/19; Chest Pa And Lat (2 Views) dated 03/16/2019 TECHNIQUE: Following dynamic enhancement using 100 milliliters nonionic IV contrast, axial imaging o f the chest, abdomen and pelvis was performed. Biphasic technique was utilized through the abdomen. Oral contrast administered. All CT scans are performed using dose optimization technique as appropriate and may include automated exposure control or mA/KV adjustment according to patient size. FINDINGS: No focal abnormality in the left lung field. A small left pleural effusion is present. No left-sided pneumothorax. Borderline to mild cardiomegaly is present without pericardial effusion. Mil d fibrotic stranding present in the left lung field. Right apex emphysematous changes are present. No acute infiltrate of the right upper lobe. There is c omplete right lower lobe and right middle lobe atelectasis. Patient has a large hydropneumothorax in the lower right lung field. This measures 14 centimeter CC x 18 cm AP x 10 cm TR. Slightly thickened and irregular pleura present. There is a small amount of air in the deep subcutaneous soft tissues ne ar the chest wall at the anterior right fifth intercostal space. No midline shift. It is unknown what if any interventional procedure may have been performed. Loculated right base pleural effusion was p reviously diagnosed in this patient. No significant aortic or pulmonary arterial tree finding. Mediastinal and hilar regions show no mass or abnormal lymphadenopathy. No chest wall mass or axillary lymphadenopathy. Fluid retention is seen in the subcutaneous fatty tissues of the lower chest. This fluid retention in the subcu fat continues into the abdomen and pelvis. The liver, spleen and pancreas show no suspicious findings. Gallbladder and biliary tree are without acute finding. A gallstone is present. Gallstones can be occult on CT imaging. Symmetric renal funct ion is seen with no mass or hydronephrosis. No adrenal abnormalities. Urinary bladder is contracted a round a Martinez catheter. No dilated bowel loops or focal bowel wall thickening. No acute GI findings seen. PEG tube is in plac e. No acute gastric finding. No peritoneal or retroperitoneal free air. No pneumatosis. Trace amount of free fluid is present in t he dependent portion of the pelvis. No acute or destructive bony process. No significant vascular findings. IMPRESSION: Large 14 cm CC x 18 cm AP x 10 cm TR hydropneumothorax mid and lower right lung field. T here is complete right middle lobe and right lower lobe atelectasis. Small left pleural effusion. Small amount of air is seen in the deep subcutaneous tissues near the right fifth inner costal space. It is uncertain what interventional procedure if any may have been performed at this facility or at an outside facility. The subcu air may be related to prior chest tube placement. Pneumothorax may bee n related to chest tube. Hydropneumothorax related to a lung parenchymal rent or tear cannot be exclu ded. Empyema not excluded but felt to be on likely. No acute for signet finding in the abdomen or pelvis.
--- NOTE | 2019-05-30 16:01 | EDPHYS ---
Physician Documentation [facility] Name: Tex Vergara Age: 63 yrs Sex: Male : 1955 Arrival Date: 05/30/2019 Time: 12:37 Bed 5 Private MD: ED Physician Wale Concepcion HPI: 05/29 16:24 This 63 yrs old Male presents to ER via EMS with complaints of Altered Mental jr8 Status. 16:24 The patient presents with confusion, decreased mental status. Onset: The jr8 symptoms/episode began/occurred acutely, today. Possible causes: unknown. Associated signs and symptoms: Pertinent positives: edema. Current symptoms: In the emergency department the patient's symptoms are unchanged from the initial presentation. Patient's baseline: Neuro: alert and fully oriented, Motor: no deficits, Ambulation: walks without assistance, Speech: normal. The patient has not experienced similar symptoms in the past. The patient has not recently seen a physician. Family stated that he was released end of March after being in [facility] for pneumonia, pleural effusion. Stated that they had to do VATS procedure on him. Started running fever and arrested. Was successfully resuscitated and recovered. Sent home. Over the past several days noticed increased swelling but now having confusion. Denies Liver disease history or renal problems . Historical: - Allergies: 12:42 No Known Allergies; jl7 - Home Meds: 12:42 diltiazem HCl 120 mg Oral cpER 1 cap once daily [Active]; Eliquis 5 mg Oral tab 1 tab 2 jl7 times per day [Active]; folic acid 1 mg Oral tab 1 tab once daily [Active]; furosemide 40 mg Oral tab 1 tab 2 times per day [Active]; gabapentin 300 mg Oral cap 1 cap 3 times per day [Active]; hydrocodone-acetaminophen 7.5-325 mg Oral tab 1 tab every 4-6 hours [Active]; magnesium oxide 400 mg Oral cap [Active]; metolazone 5 mg Oral tab [Active]; metoprolol tartrate 100 mg Oral tab 1 tab 2 times per day [Active]; potassium chloride 20 mEq Oral TbER 1 tab once daily [Active]; Multiple Vitamins Oral [Active]; Vitamin B-12 500 mcg Oral tab [Active]; - PMHx: 12:42 Atrial Fib; COPD; Hypertension; TIA; CHF; jl7 - PSHx: 12:42 CABG; feeding tube; jl7 - Immunization history:: Adult Immunizations unknown. - Social history:: Smoking status: unknown. ROS: 16:24 Unable to obtain ROS due to altered mental status. jr8 Exam: 16:24 Eyes: Pupils equal round and reactive to light, extra-ocular motions intact. Lids and jr8 lashes normal. Conjunctiva and sclera are icteric but not injected. Cornea within normal limits. Periorbital areas with no swelling, redness, or edema. ENT: Nares patent. No nasal discharge, no septal abnormalities noted. Tympanic membranes are normal and external auditory canals are clear. Oropharynx with no redness, swelling, or masses, exudates, or evidence of obstruction, uvula midline. Mucous membranes moist. Neck: Trachea midline, no thyromegaly or masses palpated, and no cervical lymphadenopathy. Supple, full range of motion without nuchal rigidity, or vertebral point tenderness. No Meningismus. Cardiovascular: Irregularly irregluar rhythm with normal rate with a normal S1 and S2. No gallops, murmurs, or rubs. Normal PMI, no JVD. No pulse deficits. 3+ pitting edema from lower extremities to mid abdomen Respiratory: Patient with absent breath sounds right lower and mid lobe. Normal breath sounds left side. No increase work of breathing or tachypnea present Abdomen/GI: Soft, non-tender, with normal bowel sounds. Obese in appearance with pitting edema. G-Tube in place. Patent and without discharge or erythema Skin: Warm, dry with normal turgor. Normal color with no rashes, no lesions, and no evidence of cellulitis. MS/ Extremity: Pulses equal, no cyanosis. Neurovascular intact. Full, normal range of motion. 16:24 Neuro: Orientation: to person, place, Not oriented to time, situation, Mentation: able to follow commands, slow to respond, confused, Memory: immediate memory is intact, remote memory is impaired, recent memory is impaired, Cranial nerves: CN I not tested, CN II- XII are normal as tested, extraocular movements are intact, Speech is slowed, Tongue strength is normal, Motor: moves all fours, Sensation: no obvious gross deficits, seizure activity, is not displayed by the patient, Abnormal movements: resting tremor, is located in the right arm and left arm. Vital Signs: 12:37 BP 108 / 65; Pulse 74; Resp 19 S; Temp 97.8(O); Pulse Ox 98% on R/A; jl7 13:50 BP 108 / 68; Pulse 85; Resp 18; Pulse Ox 100% on R/A; em 14:59 BP 108 / 72; Pulse 92; Resp 18; Pulse Ox 96% on R/A; em 15:32 BP 118 / 63; Pulse 86; Resp 16; Pulse Ox 95% on R/A; em 16:47 BP 113 / 63; Pulse 87; Resp 20 S; Pulse Ox 97% on R/A; em 13:50 A fib em Sienna Coma Score: 16:24 Eye Response: spontaneous(4). Verbal Response: confused(4). Motor Response: obeys jr commands(6). Total: 14. MDM: 12:37 Patient medically screened. jr8 15:54 Data reviewed: vital signs, nurses notes, lab test result(s), EKG, radiologic studies, jr8 CT scan, plain films. Data interpreted: Pulse oximetry: on room air is 96 %. Interpretation: normal. Counseling: I had a detailed discussion with the patient and/or guardian regarding: the historical points, exam findings, and any diagnostic results supporting the discharge/admit diagnosis, lab results, radiology results, the need to transfer to another facility, for higher level of care, [facility] does not immediately have the required specialist. 05/29 12:38 Order name: Basic Metabolic Panel; Complete Time: 13:48 05/29 12:38 Order name: Blood Culture Adult (2) 05/29 12:38 Order name: CBC with Diff; Complete Time: 14:11 05/29 12:38 Order name: CPK; Complete Time: 13:48 jr8 05/29 12:38 Order name: Lactate; Complete Time: 13:32 jr8 05/29 12:38 Order name: LFT's; Complete Time: 13:48 jr8 05/29 12:38 Order name: Lipase; Complete Time: 13:48 jr8 05/29 12:38 Order name: Procalcitonin; Complete Time: 13:38 8 05/29 12:38 Order name: Protime (+inr); Complete Time: 13:32 jr8 05/29 12:38 Order name: Ptt, Activated; Complete Time: 13:32 8 05/29 12:38 Order name: Troponin (emerg Dept Use Only); Complete Time: 13:48 8 05/29 12:38 Order name: Urine Microscopic Only; Complete Time: 13:45 8 05/29 12:38 Order name: AMMONIA; Complete Time: 13:16 8 05/29 13:05 Order name: Glucose, Ancillary Testing; Complete Time: 13:10 [facility] 05/29 12:38 Order name: Chest Single View XRAY; Complete Time: 13:43 8 05/29 12:38 Order name: Accucheck; Complete Time: 13:00 8 05/29 12:38 Order name: Cardiac monitoring; Complete Time: 13:00 8 05/29 12:38 Order name: EKG - Nurse/Tech; Complete Time: 13:00 8 05/29 13:25 Order name: Urine Dipstick--Ancillary (enter results); Complete Time: 13:32 05/29 13:45 Order name: Urine Culture [facility] 05/29 13:53 Order name: CT Chest, Abdomen, Pelvis - W/Contrast; Complete Time: 14:46 8 05/29 15:23 Interpretation: Abnormal. [facility] 05/29 14:08 Order name: CBC Smear Scan; Complete Time: 14:11 [facility] 05/29 16:00 Order name: Lactate Sepsis 2 HR Follow-up; Complete Time: 16:07 EDMS 05/29 16:15 Order name: CT Head Brain wo Cont; Complete Time: 16:53 8 05/29 12:38 Order name: IV Saline Lock - Large Bore; Complete Time: 13:00 8 05/29 12:38 Order name: Labs collected and sent; Complete Time: 13:00 8 05/29 12:38 Order name: O2 Per Protocol; Complete Time: 13:00 8 05/29 12:38 Order name: O2 Sat Monitoring; Complete Time: 13:00 [facility] 05/29 12:38 Order name: Urine Dipstick-Ancillary (obtain specimen); Complete Time: 13:27 8 05/29 13:21 Order name: Amrtinez; Complete Time: 13:21 em Administered Medications: 13:19 Drug: Lasix 60 mg Route: IVP; Site: left antecubital; em 13:48 Follow up: Response: No adverse reaction em 13:45 Drug: Rocephin 1 grams Route: IV; Rate: calculated rate; Site: left antecubital; em 13:50 Follow up: Response: No adverse reaction; IV Status: Completed infusion; IV Intake: 10mlem 13:55 Drug: vancoMYCIN 1 grams Route: IVPB; Infused Over: 2 hrs; Site: left antecubital; em 16:32 Follow up: Response: No adverse reaction; IV Status: Completed infusion; IV Intake: em 250ml 14:36 Drug: Albumin 25 grams Volume: 100 ml; Route: IVPB; Site: right wrist; em 15:36 Follow up: Response: No adverse reaction; IV Status: Completed infusion; IV Intake: 50mlem 14:45 Drug: Lactulose 30 grams {Note: given via G-tube, aspirated and returned GI contents, em flushed with 15 cc of tap water.} Volume: 45 ml; Route: PO; 15:34 Follow up: Response: No adverse reaction em 15:37 Drug: Potassium Chloride 20 mEq Route: IV; Rate: calculated rate; Site: right wrist; em Point of Care Testing: Blood Glucose: 13:49 Blood Glucose: 82 mg/dL; em Ranges: Critical Glucose Levels:Adult <50 mg/dl or >400 mg/dl <40 mg/dl or >180 mg/dl Disposition: 05/30 07:08 Co-signature as Attending Physician, Wale Concepcion MD. rn Disposition: 05/30/19 16:01 Transfer ordered to [facility]. Diagnosis are Altered mental status, unspecified, Hepatic Encephalopathy, Acute and subacute hepatic failure, Hydropneumothorax. - Reason for transfer: Higher level of care. - Accepting physician is Dr. Meredith. - Condition is Fair. - Problem is new. - Symptoms are unchanged. Signatures: Dispatcher [employer] Lj Hall RN RN Wale Phillip MD MD rn Roszak, Josh, PA PA jr8 Ryan Patel RN RN jl7 Dayana Muir Corrections: (The following items were deleted from the chart) 05/29 16:32 16:01 05/30/2019 16:01 Transfer ordered to [facility]. jr8 Diagnosis is Altered mental status, unspecified; Hepatic Encephalopathy; Acute and subacute hepatic failure; Hydropneumothorax. Reason for transfer: Higher level of care. Accepting physician is [facility] . Condition is Fair. Problem is new. Symptoms are unchanged. jr8 18:04 16:32 05/30/2019 16:01 Transfer ordered to [facility]. eb Diagnosis is Altered mental status, unspecified; Hepatic Encephalopathy; Acute and subacute hepatic failure; Hydropneumothorax. Reason for transfer: Higher level of care. Accepting physician is Dr. Meredith. Condition is Fair. Problem is new. Symptoms are unchanged. jr8
--- NOTE | 2019-05-30 16:01 | ER ---
Nurse's Notes [facility] Name: Tex Vergara Age: 63 yrs Sex: Male : 1955 Arrival Date: 05/30/2019 Time: 12:37 Bed 5 Private MD: Diagnosis: Altered mental status, unspecified;Hepatic Encephalopathy;Acute and subacute hepatic failure;Hydropneumothorax Presentation: 05/29 12:37 Chief complaint: EMS states: Toned out by family reporting he's not acting right; on jl7 arrival pt tried to drink his own urine a couple times, pt is oriented to person and place. Coronavirus screen: Patient denies fever greater than 100.4F, cough, shortness of breath, or difficulty breathing. Proceed with normal triage process. Ebola Screen: No symptoms or risks identified at this time. Initial Sepsis Screen: Does the patient meet any 2 criteria? No. Patient's initial sepsis screen is negative. Does the patient have a suspected source of infection? No. Patient's initial sepsis screen is negative. Risk Assessment: Do you want to hurt yourself or someone else? Patient reports no desire to harm self or others. Onset of symptoms is unknown. Care prior to arrival: None. 12:37 Method Of Arrival: EMS: [facility] 7 12:37 Acuity: [facility] 3 jl7 Triage Assessment: 12:42 General: Appears in no apparent distress. uncomfortable, ill, Behavior is cooperative. jl7 Pain: Denies pain. Neuro: Level of Consciousness is awake, alert, obeys commands, confused, Oriented to person, place. Historical: - Allergies: 12:42 No Known Allergies; jl7 - Home Meds: 12:42 diltiazem HCl 120 mg Oral cpER 1 cap once daily [Active]; Eliquis 5 mg Oral tab 1 tab 2 jl7 times per day [Active]; folic acid 1 mg Oral tab 1 tab once daily [Active]; furosemide 40 mg Oral tab 1 tab 2 times per day [Active]; gabapentin 300 mg Oral cap 1 cap 3 times per day [Active]; hydrocodone-acetaminophen 7.5-325 mg Oral tab 1 tab every 4-6 hours [Active]; magnesium oxide 400 mg Oral cap [Active]; metolazone 5 mg Oral tab [Active]; metoprolol tartrate 100 mg Oral tab 1 tab 2 times per day [Active]; potassium chloride 20 mEq Oral TbER 1 tab once daily [Active]; Multiple Vitamins Oral [Active]; Vitamin B-12 500 mcg Oral tab [Active]; - PMHx: 12:42 Atrial Fib; COPD; Hypertension; TIA; CHF; jl7 - PSHx: 12:42 CABG; feeding tube; jl7 - Immunization history:: Adult Immunizations unknown. - Social history:: Smoking status: unknown. Screenin:50 Abuse screen: Denies threats or abuse. Nutritional screening: No deficits noted. em Tuberculosis screening: No symptoms or risk factors identified. Fall Risk Secondary diagnosis (15 points) TIA, IV access (20 points). Mental Status- Overestimates/Forgets Limitations (15 pts.). Total Jason Fall Scale indicates High Risk Score (45 or more points). Assessment: 12:37 General: Appears in no apparent distress. comfortable, Behavior is calm, drowsy, Denies em fever. Pain: Denies pain. Neuro: Level of Consciousness is awake, alert, obeys commands, Oriented to person, place, situation, Deputy Director Of Finance are equal bilaterally Moves all extremities. Speech is normal, Facial symmetry appears normal. Cardiovascular: Denies chest pain, shortness of breath, Capillary refill < 3 seconds Patient's skin is warm and dry. Edema pitting to waist, pubic area, left upper thigh, left lower thigh, left midcalf, left ankle, left foot, left toes, right upper thigh, right lower thigh, right midcalf, right ankle, right foot and right toes Rhythm is atrial fibrillation. Respiratory: Airway is patent Respiratory effort is even, unlabored, Respiratory pattern is regular, symmetrical, Breath sounds are diminished bilaterally. Denies cough, shortness of breath. GI: Abdomen is flat, PEG tube in place, clamped. Site clean. Site with drainage. Patient currently denies abdominal pain. Derm: Skin is intact, is fragile, is thin, Skin is pink, warm \T\ dry. Musculoskeletal: Capillary refill < 3 seconds, Range of motion: intact in all extremities. 13:15 Reassessment: Patient appears in no apparent distress at this time. symptoms have not em improved. 14:03 Reassessment: Patient appears in no apparent distress at this time. wheeled to CT via em stretcher. 15:11 Reassessment: Patient appears in no apparent distress at this time. pt alert to verbal em stimuli, denies pain, resting comfortable with eyes closed, pt symptoms have not improved. 15:30 Reassessment: repeat lactate sent to lab. em 16:28 Reassessment: transferring hospital request head CT then will be transferred, pt em wheeled to CT. 17:08 Reassessment: report given to ALMA Begum at [facility], pending EMS transportation. em 17:50 Reassessment: Patient appears in no apparent distress at this time. report given to em EMS. Vital Signs: 12:37 BP 108 / 65; Pulse 74; Resp 19 S; Temp 97.8(O); Pulse Ox 98% on R/A; jl7 13:50 BP 108 / 68; Pulse 85; Resp 18; Pulse Ox 100% on R/A; em 14:59 BP 108 / 72; Pulse 92; Resp 18; Pulse Ox 96% on R/A; em 15:32 BP 118 / 63; Pulse 86; Resp 16; Pulse Ox 95% on R/A; em 16:47 BP 113 / 63; Pulse 87; Resp 20 S; Pulse Ox 97% on R/A; em 13:50 A fib em Reading Coma Score: 16:24 Eye Response: spontaneous(4). Verbal Response: confused(4). Motor Response: obeys jr8 commands(6). Total: 14. ED Course: 12:37 Patient arrived in ED. jl7 12:37 [facility] jr8 12:37 Wale Concepcion MD is Attending Physician. jr8 12:39 Triage completed. jl7 12:42 Arm band placed on right wrist. jl7 12:52 Inserted saline lock: 20 gauge in left antecubital area, using aseptic technique. Blood em collected. 12:52 Initial lab(s) drawn, by me, sent to lab. First set of blood cultures drawn by me. em 12:58 Lj Mills, ALMA is Primary Nurse. em 12:59 Patient has correct armband on for positive identification. Bed in low position. Call em light in reach. Side rails up X2. awake overnight monitor on. Pulse ox on. NIBP on. 13:15 Second set of blood cultures drawn by me. em 13:15 Martinez cath inserted, using sterile technique, 14 Fr., by me, balloon inflated, returned em clear yellow urine. Patient tolerated well. 13:16 Chest Single View XRAY In Process Unspecified. EDMS 13:33 EKG done, by refrigerating technician. reviewed by Alessandro CHAMBERS. at1 14:[address] via stretcher. md1 14:07 CT Chest, Abdomen, Pelvis - W/Contrast In Process Unspecified. EDMS 14:35 Inserted saline lock: 20 gauge in right wrist, using aseptic technique. em 15:14 initiated a transfer with Dayana Pteersen from the [facility]. eb 15:30 Repeat lab(s) drawn. by me, sent to lab. dh3 15:44 connected the GI radiation control technician for [facility] with Alessandro CHAMBERS for patient transfer eb consultation. 16:[address] Meredith the hospitalist radiation control technician for [facility] with Alessandro CHAMBERS for eb patient transfer consultation. 16:28 15 minute extension requested by Malini from the [facility]. eb 16:30 administrative approval given by Rocio Gifford/ patient has been accepted to [facility] 7 [address] Aretha rm 27/ Dr. Meredith has accepted the patient in transfer/ report to be called to [phone]. 16:46 CT Head Brain wo Cont In Process Unspecified. EDMS 17:50 No provider procedures requiring assistance completed. Patient transferred, IV remains em in place. Administered Medications: 13:19 Drug: Lasix 60 mg Route: IVP; Site: left antecubital; em 13:48 Follow up: Response: No adverse reaction em 13:45 Drug: Rocephin 1 grams Route: IV; Rate: calculated rate; Site: left antecubital; em 13:50 Follow up: Response: No adverse reaction; IV Status: Completed infusion; IV Intake: 10mlem 13:55 Drug: vancoMYCIN 1 grams Route: IVPB; Infused Over: 2 hrs; Site: left antecubital; em 16:32 Follow up: Response: No adverse reaction; IV Status: Completed infusion; IV Intake: em 250ml 14:36 Drug: Albumin 25 grams Volume: 100 ml; Route: IVPB; Site: right wrist; em 15:36 Follow up: Response: No adverse reaction; IV Status: Completed infusion; IV Intake: 50mlem 14:45 Drug: Lactulose 30 grams {Note: given via G-tube, aspirated and returned GI contents, em flushed with 15 cc of tap water.} Volume: 45 ml; Route: PO; 15:34 Follow up: Response: No adverse reaction em 15:37 Drug: Potassium Chloride 20 mEq Route: IV; Rate: calculated rate; Site: right wrist; em Point of Care Testing: Blood Glucose: 13:49 Blood Glucose: 82 mg/dL; em Ranges: Intake: 13:50 IV: 10ml; Total: 10ml. em 15:36 IV: 50ml; Total: 60ml. em 16:32 IV: 250ml; Total: 310ml. em Output: 14:59 Urine: 1000ml (Martinez); Total: 1000ml. em 16:47 Urine: 650ml (Martinez); Total: 1650ml. em Outcome: 16:01 ER care complete, transfer ordered by MD. huerta 17:50 Transferred by ground EMS to [facility], Transfer form completed. em X-rays sent w/ patient. 17:50 Condition: stable 17:50 Instructed on the need for transfer, Demonstrated understanding of instructions. 18:04 Patient left the ED. eb Signatures: Dispatcher [employer] Lj Hall RN RN em Alessandro Garcia PA PA jr8 Estella Young, fishing tackle repairer EKG Tat1 Ryan Patel RN RN jl7 Britany Carvajal 3 Dayana Muir Mikaela md1 Corrections: (The following items were deleted from the chart) 13:49 12:55 Blood Glucose: Blood Glucose Reading=81 mg/dL. em em 15:17 14:45 Lactulose 30 grams 45 ml PO 45 ml em em 16:13 15:44 connected the senior engineering manager radiation control technician for [facility] with Alessandro CHAMBERS for patient eb transfer consultation. eb 17:39 15:11 Reassessment: Patient appears in no apparent distress at this time. pt alert to em verbal stimuli, denies pain, resting comfortable with eyes closed Patient states symptoms have not improved. em
--- NOTE | 2019-05-30 16:58 | RAD REPORT ---
EXAM DESCRIPTION: CT - Head Brain Wo Cont - 05/30/2019 4:46 pm CLINICAL HISTORY: MENTAL STATUS CHANGE, transient alteration of awareness COMPARISON: Head Brain Wo Cont dated 03/17/2019 TECHNIQUE: Axial 5 mm thick images of the head were obtained without IV contrast. All CT scans are performed using dose optimization technique as appropriate and may include automated exposure control or mA/KV adjustment according to patient size. FINDINGS: No intracranial hemorrhage, mass, edema or shift of mid-line structures. No acute cortical based infarction. No cortical edema or sulcal effacement. Volume loss is minimal. Ventricles are in proportion. Patchy chronic ischemic changes again noted. Focal 7 mm area of diminished attenuation in the right frontal lobe white matter has not changed over this relatively short interval. Contrast is present from a prior contrast CT study. Mastoid air cells and visualized portions of the paranasal sinuses are clear. No acute bony findings. IMPRESSION: Negative non-contrast CT head examination. No significant change from the March 17 study.
[2019-05-30 18:23] VITALS: TEMP 97.8
[2019-05-30 18:28] VITALS: BP 113/63; O2SAT 97
--- NOTE | 2019-06-01 14:24 | EKG ---
Test Date: 2019-05-30 Test Time: 13:27:23 Rehabilitation Specialist: ALLISON MEASUREMENT RESULTS: Intervals: Rate: 95 IA: QRSD: 128 QT: 388 QTc: 487 [place]: P: IA: QRS: 16 T: 179 INTERPRETIVE STATEMENTS: Atrial fibrillation Left ventricular hypertrophy with QRS widening Nonspecific T wave abnormality, probably digitalis effect Abnormal ECG Compared to ECG 03/11/2019 09:31:00 T-wave abnormality now present Ventricular premature complex(es) no longer present ST (T wave) deviation no longer present Possible ischemia no longer present Electronically Signed On 06-01-19 14:22:54 CDT by Gabriel Monsalve
== END 2019-05-30 18:04 | disposition short-term general hospital (02) ==
LOC: ER 12:35
DX: K72.00 Acute and subacute hepatic failure without coma (principal); J94.8 Other specified pleural conditions; I10 Essential (primary) hypertension; I48.91 Unspecified atrial fibrillation; J44.9 Chronic obstructive pulmonary disease, unspecified; I50.9 Heart failure, unspecified; Z79.01 Long term (current) use of anticoagulants; Z95.1 Presence of aortocoronary bypass graft
CPT/HCPCS: 96365; 96368; 87040 ×2; 85025; 87086; 80048; 36415; 82140; 82550; 85610; 82947; 80076; 83605 ×2; 85730; 84484; 83690; 84145; 70450; 71260; 74177; 71045; 51702; 96375; 99285; 96366; Q9967; J1940 ×2; J3370; J0696; P9047; 81003; 81015; 87088; 93005

== ENCOUNTER 2019-07-04 17:45 | Emergency (ER) | payer OTHER ==
--- OUTSIDE RECORDS SUMMARY | 2019-07-04 18:04 | XMS REPORT ---
:1955 Author Organization [facility] t Address [address] [place] [address] [place] [address] Care Team Providers Name Role Phone Mukesh PALAFOX Unavailable Unavailable EDILMA CARDONA Unavailable Unavailable FARA Unavailable Unavailable Problems This patient has no known problems. Allergies, Adverse Reactions, Alerts This patient has no known allergies or adverse reactions. Medications This patient has no known medications. Results Test Description Test Time Test Comments Text Results Atomic Results Result Comments POCT-GLUCOSE METER 2019-06-09 18:49:00 Test Item Value Reference Range Comments POC-GLUCOSE METER (BEAKER) 72 mg/dL 70-110 : HEIDI JACOBS AT [facility] [address] [facility] (test code = 1538) [place], [address]: Op erator/Research Intern ID = [id number] for RYAN AVILA POCT-GLUCOSE [id number] 13:07:00 Test Item Value Reference Range Comments POC-GLUCOSE METER (BEAKER) 83 mg/dL 70-110 : HEIDI ANNIE AT [facility] [address] [facility] (test code = 1538) [place], [address]: Billing Auditor/Technic juana ID = [id number] for HOUSTON ECHOLS COMPREHENSIVE METABOLIC [id number] 12:12:00 Test Item Value Reference Range Comments TOTAL PROTEIN (BEAKER) 6.7 gm/dL 6.0-8.3 Specimen slightly (test code = 770) hemolyzed ALBUMIN (BEAKER) (test 2.1 g/dL 3.5-5.0 Specimen slightly code = 1145) hemolyzed ALKALINE PHOSPHATASE 202 U/L 40-150 (BEAKER) (test code = 346) BILIRUBIN TOTAL (BEAKER) 1.2 mg/dL 0.2-1.2 Specime n slightly (test code = 377) hemolyzed SODIUM (BEAKER) (test code 142 meq/L 136-145 = 381) POTASSIUM (BEAKER) (test 4.4 meq/L 3.5-5.1 Specime n slightly code = 379) hemolyzed CHLORIDE (BEAKER) (test 107 meq/L 98-107 code = 382) CO2 (BEAKER) (test code = 30 meq/L 22-29 355) BLOOD UREA NITROGEN 25 mg/dL 7-21 (BEAKER) (test code = 354) CREATININE (BEAKER) (test 0.76 mg/dL 0.57-1.25 Specim en slightly code = 358) hemolyzed GLUCOSE RANDOM (BEAKER) 108 mg/dL 70-105 (test code = 652) CALCIUM (BEAKER) (test 7.9 mg/dL 8.4-10.2 code = 697) AST (SGOT) (BEAKER) (test 77 U/L 5-34 Specim en slightly code = 353) hemolyzed ALT (SGPT) (BEAKER) (test 86 U/L 6-55 Specim en slightly code = 347) hemolyzed EGFR (BEAKER) (test code = 103 mL/min/1.73 sq ES TIMATED GFR IS NOT 1092) m ACCURATE CREA TININE CLEARANCE IN PRE DICTING GLOMERULAR FILTR ATION RATE. ESTIMATED GFR IS NOT APPLICABLE F OR DIALYSIS PATIENT S. Billing Auditor ID - ELISSA MPOCT-GLUCOSE [id number] 06:17:00 Test Item Value Reference Range Comments POC-GLUCOSE METER (BEAKER) 105 mg/dL 70-110 : HEIDI ANNIE AT [address] (test code = 1538) [facility], [address]: Billing Auditor/Technic juana ID = [id number] for BERRIOS, V ICTORIA POCT-GLUCOSE [id number] 23:52:00 Test Item Value Reference Range Comments POC-GLUCOSE METER (BEAKER) 97 mg/dL 70-110 : HEIDI ANNIE AT [address] (test code = 1538) [facility], [address]: Billing Auditor/Technic juana ID = [id number] for BERRIOS, V ICTORIA POCT-GLUCOSE [id number] 18:31:00 Test Item Value Reference Range Comments POC-GLUCOSE METER (BEAKER) 102 mg/dL 70-110 : HEIDI ANNIE AT [address] (test code = 1538) [facility], [address]: Billing Auditor/Technic juana ID = [id number] for CARRILLO JESUS POCT-GLUCOSE [id number] 17:27:00 Test Item Value Reference Range Comments POC-GLUCOSE METER (BEAKER) 106 mg/dL 70-110 : HEIDI ANNIE AT [address] (test code = 1538) [facility], [address]: Billing Auditor/Technic juana ID = [id number] for BRENDON KEY POCT-GLUCOSE [id number] 23:31:00 Test Item Value Reference Range Comments POC-GLUCOSE METER (BEAKER) 101 mg/dL 70-110 : HEIDI ANNIE AT [address] (test code = 1538) [facility], [address]: Billing Auditor/Technic juana ID = [id number] for BRENDON KEY ALAN POCT-GLUCOSE [id number] 18:53:00 Test Item Value Reference Range Comments POC-GLUCOSE METER (BEAKER) 89 mg/dL 70-110 : HEIDI ANNIE AT [address] (test code = 1538) [facility], [address]: Billing Auditor/Technic juana ID = [id number] for JAX ORTIZ POCT-GLUCOSE [id number] 17:25:00 Test Item Value Reference Range Comments POC-GLUCOSE METER (BEAKER) 67 mg/dL 70-110 : HEIDI ANNIE AT [address] (test code = 1538) [facility], [address]: Billing Auditor/Technic juana ID = [id number] for DE LA ROSA-SMI TH, KIRSTEN POCT-GLUCOSE [id number] 14:28:00 Test Item Value Reference Range Comments POC-GLUCOSE METER (BEAKER) 88 mg/dL 70-110 : HEIDI ANNIE AT [address] (test code = 1538) [facility], [address]: Billing Auditor/Technic juana ID = [id number] for DE LA ROSA-SMI TH, KIRSTEN POCT-GLUCOSE [id number] 06:27:00 Test Item Value Reference Range Comments POC-GLUCOSE METER (BEAKER) 101 mg/dL 70-110 : HEIDI ANNIE AT [address] (test code = 1538) [facility], [address]: Billing Auditor/Technic juana ID = [id number] for BRENDON KEY POCT-GLUCOSE [id number] 23:55:00 Test Item Value Reference Range Comments POC-GLUCOSE METER (BEAKER) 97 mg/dL 70-110 : HEIDI ANNIE AT [address] (test code = 1538) [facility], [address]: Billing Auditor/Technic juana ID = [id number] for BRENDON KEY POCT-GLUCOSE [id number] 17:59:00 Test Item Value Reference Range Comments POC-GLUCOSE METER (BEAKER) 92 mg/dL 70-110 : HEIDI ANNIE AT [address] (test code = 1538) [facility], [address]: Billing Auditor/Technic juana ID = [id number] for Leeanna Norwood POCT-GLUCOSE [id number] 12:15:00 Test Item Value Reference Range Comments POC-GLUCOSE METER (BEAKER) 103 mg/dL 70-110 : HEIDI ANNIE AT [address] (test code = 1538) [facility], [address]: Billing Auditor/Technic juana ID = [id number] for Leeanna Norwood POCT-GLUCOSE [id number] 05:55:00 Test Item Value Reference Range Comments POC-GLUCOSE METER (BEAKER) 105 mg/dL 70-110 : HEIDI ANNIE AT [address] (test code = 1538) [facility], [address]: Billing Auditor/Technic juana ID = [id number] for CHARLIE AHMET COMPREHENSIVE METABOLIC [id number] 04:31:00 Test Item Value Reference Range Comments TOTAL PROTEIN (BEAKER) 6.0 gm/dL 6.0-8.3 (test code = 770) ALBUMIN (BEAKER) (test 1.9 g/dL 3.5-5.0 code = 1145) ALKALINE PHOSPHATASE 179 U/L 40-150 (BEAKER) (test code = 346) BILIRUBIN TOTAL (BEAKER) 1.0 mg/dL 0.2-1.2 (test code = 377) SODIUM (BEAKER) (test code 145 meq/L 136-145 = 381) POTASSIUM (BEAKER) (test 3.7 meq/L 3.5-5.1 code = 379) CHLORIDE (BEAKER) (test 103 meq/L 98-107 code = 382) CO2 (BEAKER) (test code = 36 meq/L 22-29 355) BLOOD UREA NITROGEN 28 mg/dL 7-21 (BEAKER) (test code = 354) CREATININE (BEAKER) (test 0.90 mg/dL 0.57-1.25 code = 358) GLUCOSE RANDOM (BEAKER) 95 mg/dL 70-105 (test code = 652) CALCIUM (BEAKER) (test 7.8 mg/dL 8.4-10.2 code = 697) AST (SGOT) (BEAKER) (test 80 U/L 5-34 code = 353) ALT (SGPT) (BEAKER) (test 116 U/L 6-55 code = 347) EGFR (BEAKER) (test code = 85 mL/min/1.73 sq m E STIMATED GFR IS NOT 1092) ACCURATE CREA TININE CLEARANCE IN PRE DICTING GLOMERULAR FILTR ATION RATE. ESTIMATED GFR IS NOT APPLICABLE F OR DIALYSIS PATIENT S. Billing Auditor ID - SANDRA WPOCT-GLUCOSE [id number] 00:14:00 Test Item Value Reference Range Comments POC-GLUCOSE METER (BEAKER) 106 mg/dL 70-110 : HEIDI ANNIE AT [address] (test code = 1538) [facility], [address]: Billing Auditor/Technic juana ID = [id number] for UEMARU, AHMET POCT-GLUCOSE [id number] 19:00:00 Test Item Value Reference Range Comments POC-GLUCOSE METER (BEAKER) 111 mg/dL 70-110 : HEIDI ANNIE AT [address] (test code = 1538) [facility], [address]: Billing Auditor/Technic juana ID = [id number] for JESUS, ABIG AIL POCT-GLUCOSE [id number] 17:05:00 Test Item Value Reference Range Comments POC-GLUCOSE METER (BEAKER) 101 mg/dL 70-110 : HEIDI ANNIE AT [address] (test code = 1538) [facility], [address]: Billing Auditor/Technic juana ID = [id number] for JESUS, ABIG AIL [id number] 17:03:00 Test Item Value Reference Range Comments POTASSIUM (BEAKER) (test code = 379) 3.9 meq/L 3.5-5.1 Billing Auditor ID - BSBLOOD [id number] 10:00:00 Test Item Value Reference Range Comments CULTURE (BEAKER) (test code = 1095) No growth in 5 days BASIC METABOLIC [id number] 06:28:00 Test Item Value Reference Range Comments SODIUM (BEAKER) (test 145 meq/L 136-145 code = 381) POTASSIUM (BEAKER) (test 3.0 meq/L 3.5-5.1 code = 379) CHLORIDE (BEAKER) (test 101 meq/L 98-107 code = 382) CO2 (BEAKER) (test code = 38 meq/L 22-29 355) BLOOD UREA NITROGEN 28 mg/dL 7-21 (BEAKER) (test code = 354) CREATININE (BEAKER) (test 0.87 mg/dL 0.57-1.25 code = 358) GLUCOSE RANDOM (BEAKER) 110 mg/dL 70-105 (test code = 652) CALCIUM (BEAKER) (test 7.9 mg/dL 8.4-10.2 code = 697) EGFR (BEAKER) (test code 88 mL/min/1.73 sq m EST IMATED GFR IS NOT = 1092) ACCURATE CREA TININE CLEARANCE IN PRE DICTING GLOMERULAR FILTR ATION RATE. ESTIMATED GFR IS NOT APPLICABLE F OR DIALYSIS PATIENT S. Billing Auditor ID - PIAYA LPOCT-GLUCOSE [id number] 06:13:00 Test Item Value Reference Range Comments POC-GLUCOSE METER (BEAKER) 119 mg/dL 70-110 : HEIDI ANNIE AT [address] (test code = 1538) [facility], [address]: Billing Auditor/Technic juana ID = [id number] for UEMARU, AHMET BLOOD [id number] 03:01:00 Test Item Value Reference Range Comments CULTURE (BEAKER) (test code = 1095) No growth in 5 days POCT-GLUCOSE [id number] 00:16:00 Test Item Value Reference Range Comments POC-GLUCOSE METER (BEAKER) 92 mg/dL 70-110 : HEIDI ANNIE AT [address] (test code = 1538) [facility], [address]: Billing Auditor/Technic juana ID = [id number] for UEMARU, AHMET POCT-GLUCOSE [id number] 17:55:00 Test Item Value Reference Range Comments POC-GLUCOSE METER (BEAKER) 104 mg/dL 70-110 : HEIDI ANNIE AT [address] (test code = 1538) [facility], [address]: Billing Auditor/Technic juana ID = [id number] for SANAZ ALONSOL A FL, AMAURYOPH, SWALLOW FUNCTION, WITH CINE OR [id number] 15:08:00Reason for exam:->dysphagiaFINAL REPORT EXAMINATION: Modified barium swallow study INDICATION: Dysphagia. COMPARISON: Modified barium swallow of 04/22/2019. TECHNIQUE: The examination was performed in conjunction with speech pathology. Varying consistencies of barium was administered under lateral fluoroscopic observation. Fluoroscopy time: 1.4 minutesNumber of images: 4 IMPRESSION: There was some degree of laryngeal penetration and aspiration with all of the textures of the administered barium. Please refer to speech pathologist's note from same date for further description. Signed: Fredi Lucas MDReport Verified Date/Time: 06/04/2019 15:08:42 Reading Location: [address] Transitional Reading Room POCT-GLUCOSE [id number] 11:56:00 Test Item Value Reference Range Comments POC-GLUCOSE METER (BEAKER) 111 mg/dL 70-110 : HEDII ANNIE AT [address] (test code = 1538) [facility], [address]: Billing Auditor/Technic juana ID = [id number] for STEPAN ALONSO A POCT-GLUCOSE [id number] 06:18:00 Test Item Value Reference Range Comments POC-GLUCOSE METER (BEAKER) 110 mg/dL 70-110 : HEIDI ANNIE AT [address] (test code = 1538) [facility], [address]: Billing Auditor/Technic juana ID = [id number] for Marisela BERRIOS COMPREHENSIVE METABOLIC [id number] 05:51:00 Test Item Value Reference Range Comments TOTAL PROTEIN (BEAKER) 6.1 gm/dL 6.0-8.3 (test code = 770) ALBUMIN (BEAKER) (test 2.0 g/dL 3.5-5.0 code = 1145) ALKALINE PHOSPHATASE 176 U/L 40-150 (BEAKER) (test code = 346) BILIRUBIN TOTAL (BEAKER) 1.0 mg/dL 0.2-1.2 (test code = 377) SODIUM (BEAKER) (test code 144 meq/L 136-145 = 381) POTASSIUM (BEAKER) (test 2.8 meq/L 3.5-5.1 code = 379) CHLORIDE (BEAKER) (test 98 meq/L 98-107 code = 382) CO2 (BEAKER) (test code = 40 meq/L 22-29 355) BLOOD UREA NITROGEN 26 mg/dL 7-21 (BEAKER) (test code = 354) CREATININE (BEAKER) (test 0.98 mg/dL 0.57-1.25 code = 358) GLUCOSE RANDOM (BEAKER) 114 mg/dL 70-105 (test code = 652) CALCIUM (BEAKER) (test 8.4 mg/dL 8.4-10.2 code = 697) AST (SGOT) (BEAKER) (test 90 U/L 5-34 code = 353) ALT (SGPT) (BEAKER) (test 151 U/L 6-55 code = 347) EGFR (BEAKER) (test code = 77 mL/min/1.73 sq m E STIMATED GFR IS NOT 1092) ACCURATE CREA TININE CLEARANCE IN PRE DICTING GLOMERULAR FILTR ATION RATE. ESTIMATED GFR IS NOT APPLICABLE F OR DIALYSIS PATIENT S. Billing Auditor ID - ELISSA MCBC W/PLT COUNT & AUTO [id number] 05:29:00 Test Item Value Reference Range Comments WHITE BLOOD CELL COUNT (BEAKER) (test code = 13.3 K/ L 3.5 -10.5 775) RED BLOOD CELL COUNT (BEAKER) (test code = 761) 4.12 M/ L 4.63-6.08 HEMOGLOBIN (BEAKER) (test code = 410) 10.8 GM/DL 13.7-17.5 HEMATOCRIT (BEAKER) (test code = 411) 35.6 % 40.1-51.0 MEAN CORPUSCULAR VOLUME (BEAKER) (test code = 86.4 fL 79 .0-92.2 753) MEAN CORPUSCULAR HEMOGLOBIN (BEAKER) (test code 26.2 pg 25.7-32.2 = 751) MEAN CORPUSCULAR HEMOGLOBIN CONC (BEAKER) (test 30.3 GM/DL 32.3-36.5 code = 752) RED CELL DISTRIBUTION WIDTH (BEAKER) (test code 20.1 % 11.6-14.4 = 412) PLATELET COUNT (BEAKER) (test code = 756) 240 K/CU MM 150-45 0 MEAN PLATELET VOLUME (BEAKER) (test code = 754) 12.3 fL 9.4-12.4 NUCLEATED RED BLOOD CELLS (BEAKER) (test code = 0 /100 WBC 0-0 413) NEUTROPHILS RELATIVE PERCENT (BEAKER) (test code 71 % = 429) LYMPHOCYTES RELATIVE PERCENT (BEAKER) (test code 16 % = 430) MONOCYTES RELATIVE PERCENT (BEAKER) (test code = 9 % 431) EOSINOPHILS RELATIVE PERCENT (BEAKER) (test code 3 % = 432) BASOPHILS RELATIVE PERCENT (BEAKER) (test code = 1 % 437) NEUTROPHILS ABSOLUTE COUNT (BEAKER) (test code = 9.45 K/ L 1.78-5.38 670) LYMPHOCYTES ABSOLUTE COUNT (BEAKER) (test code = 2.08 K/ L 1.32-3.57 414) MONOCYTES ABSOLUTE COUNT (BEAKER) (test code = 1.24 K/ L 0 .30-0.82 415) EOSINOPHILS ABSOLUTE COUNT (BEAKER) (test code = 0.43 K/ L 0.04-0.54 416) BASOPHILS ABSOLUTE COUNT (BEAKER) (test code = 0.07 K/ L 0 .01-0.08 417) IMMATURE GRANULOCYTES-RELATIVE PERCENT (BEAKER) 0 % 0-1 (test code = 2801) U/S, ABDOMINAL, [id number] 04:00:00Abdomen limited area? Add comment if clarification is needed.->LiverReason for exam:->elevatedLFTsFINAL REPORT History: Elevated LFTs Abdominal ultrasound dated 06/04/2019 Comparison: 03/20/2019 Comment: Real-time transabdominal ultrasound of the right upper quadrant abdomen was performed. Liver: 14.1 cm , normal. Normal echogenicity. No focal lesions. Gallbladder: No gallstones. No gallbladder wall thickening. No perocholecystic fluid.. No sonographic Jonas's sign. Biliary tree: No intrahepatic ductal dilatation. CBD: 5 mm. MPV: 8 mm Pancreas: Unremarkable. Right kidney: 11.1 x 6.2 x 5.5 cm. Normal echogenicity. No ascites is present in the abdomen. The visualized abdominal aorta is normal in caliber. The IVC and Hepatic veins are patent. Impression: No ultrasound abn ormality to explain the patient's elevated LFTs. Signed: Reji Tyler MDReport Verified Date/Time:06/04/2019 04:00:37 POCT-GLUCOSE [id number] 23:50:00 Test Item Value Reference Range Comments POC-GLUCOSE METER (BEAKER) 115 mg/dL 70-110 : HEIDI ANNIE AT [address] (test code = 1538) [facility], [address]: Billing Auditor/Technic juana ID = [id number] for AGUSTINA Marisela ICTORIA POCT-GLUCOSE [id number] 18:03:00 Test Item Value Reference Range Comments POC-GLUCOSE METER (BEAKER) 126 mg/dL 70-110 : HEIDI ANNIE AT [address] (test code = 1538) [facility], [address]: Billing Auditor/Technic juana ID = [id number] for DRU BONILLA [id number] 15:27:00 Test Item Value Reference Range Comments AMMONIA (BEAKER) (test code = 348) 82 mol/L 18-72 Billing Auditor ID - BSMRSA [id number] 12:47:00 Test Item Value Reference Range Comments CULTURE (BEAKER) (test code = 1095) No MRSA isolated POCT-GLUCOSE [id number] 12:25:00 Test Item Value Reference Range Comments POC-GLUCOSE METER (BEAKER) 123 mg/dL 70-110 : HEIDI ANNIE AT [address] (test code = 1538) [facility], [address]: Billing Auditor/Technic juana ID = [id number] for DRU BONILLA POCT-GLUCOSE [id number] 06:32:00 Test Item Value Reference Range Comments POC-GLUCOSE METER (BEAKER) 106 mg/dL 70-110 : HEIDI ANNIE AT [address] (test code = 1538) [facility], [address]: Billing Auditor/Technic juana ID = [id number] for Marisela BERRIOS [id number] 06:13:00 Test Item Value Reference Range Comments MAGNESIUM (BEAKER) (test code = 2.2 mg/dL 1.6-2.6 Specimen slightly hemolyzed 627) Billing Auditor ID - BSCOMPREHENSIVE METABOLIC [id number] 06:13:00 Test Item Value Reference Range Comments TOTAL PROTEIN (BEAKER) 6.4 gm/dL 6.0-8.3 Specimen slightly (test code = 770) hemolyzed ALBUMIN (BEAKER) (test 2.1 g/dL 3.5-5.0 Specimen slightly code = 1145) hemolyzed ALKALINE PHOSPHATASE 176 U/L 40-150 (BEAKER) (test code = 346) BILIRUBIN TOTAL (BEAKER) 1.0 mg/dL 0.2-1.2 Specime n slightly (test code = 377) hemolyzed SODIUM (BEAKER) (test code 143 meq/L 136-145 = 381) POTASSIUM (BEAKER) (test 3.5 meq/L 3.5-5.1 Specime n slightly code = 379) hemolyzed CHLORIDE (BEAKER) (test 97 meq/L 98-107 code = 382) CO2 (BEAKER) (test code = 39 meq/L 22-29 355) BLOOD UREA NITROGEN 26 mg/dL 7-21 (BEAKER) (test code = 354) CREATININE (BEAKER) (test 1.03 mg/dL 0.57-1.25 Specim en slightly code = 358) hemolyzed GLUCOSE RANDOM (BEAKER) 114 mg/dL 70-105 (test code = 652) CALCIUM (BEAKER) (test 8.6 mg/dL 8.4-10.2 code = 697) AST (SGOT) (BEAKER) (test 129 U/L 5-34 Specim en slightly code = 353) hemolyzed ALT (SGPT) (BEAKER) (test 183 U/L 6-55 Specim en slightly code = 347) hemolyzed EGFR (BEAKER) (test code = 73 mL/min/1.73 sq m E STIMATED GFR IS NOT 1092) ACCURATE CREA TININE CLEARANCE IN PRE DICTING GLOMERULAR FILTR ATION RATE. ESTIMATED GFR IS NOT APPLICABLE F OR DIALYSIS PATIENT S. Billing Auditor ID - BSCBC W/PLT COUNT & AUTO [id number] 05:58:00 Test Item Value Reference Range Comments WHITE BLOOD CELL COUNT (BEAKER) (test code = 13.4 K/ L 3.5 -10.5 775) RED BLOOD CELL COUNT (BEAKER) (test code = 761) 4.21 M/ L 4.63-6.08 HEMOGLOBIN (BEAKER) (test code = 410) 10.6 GM/DL 13.7-17.5 HEMATOCRIT (BEAKER) (test code = 411) 35.7 % 40.1-51.0 MEAN CORPUSCULAR VOLUME (BEAKER) (test code = 84.8 fL 79 .0-92.2 753) MEAN CORPUSCULAR HEMOGLOBIN (BEAKER) (test code 25.2 pg 25.7-32.2 = 751) MEAN CORPUSCULAR HEMOGLOBIN CONC (BEAKER) (test 29.7 GM/DL 32.3-36.5 code = 752) RED CELL DISTRIBUTION WIDTH (BEAKER) (test code 20.0 % 11.6-14.4 = 412) PLATELET COUNT (BEAKER) (test code = 756) 241 K/CU MM 150-45 0 MEAN PLATELET VOLUME (BEAKER) (test code = 754) 11.6 fL 9.4-12.4 NUCLEATED RED BLOOD CELLS (BEAKER) (test code = 0 /100 WBC 0-0 413) NEUTROPHILS RELATIVE PERCENT (BEAKER) (test code 74 % = 429) LYMPHOCYTES RELATIVE PERCENT (BEAKER) (test code 12 % = 430) MONOCYTES RELATIVE PERCENT (BEAKER) (test code = 11 % 431) EOSINOPHILS RELATIVE PERCENT (BEAKER) (test code 2 % = 432) BASOPHILS RELATIVE PERCENT (BEAKER) (test code = 1 % 437) NEUTROPHILS ABSOLUTE COUNT (BEAKER) (test code = 9.92 K/ L 1.78-5.38 670) LYMPHOCYTES ABSOLUTE COUNT (BEAKER) (test code = 1.61 K/ L 1.32-3.57 414) MONOCYTES ABSOLUTE COUNT (BEAKER) (test code = 1.50 K/ L 0 .30-0.82 415) EOSINOPHILS ABSOLUTE COUNT (BEAKER) (test code = 0.28 K/ L 0.04-0.54 416) BASOPHILS ABSOLUTE COUNT (BEAKER) (test code = 0.08 K/ L 0 .01-0.08 417) IMMATURE GRANULOCYTES-RELATIVE PERCENT (BEAKER) 0 % 0-1 (test code = 2801) POCT-GLUCOSE [id number] 00:22:00 Test Item Value Reference Range Comments POC-GLUCOSE METER (BEAKER) 133 mg/dL 70-110 : HEIDI ANNIE AT [facility] [address] [place] (test code = 1538) [facility], [address]: Billing Auditor/Technic juana ID = [id number] for Marisela BERRIOS POCT-GLUCOSE [id number] 18:09:00 Test Item Value Reference Range Comments POC-GLUCOSE METER (BEAKER) 129 mg/dL 70-110 : HEIDI ANNIE AT [address] (test code = 1538) [facility], [address]: Billing Auditor/Technic juana ID = [id number] for HOUSTON ECHOLS BASIC METABOLIC [id number] 16:10:00 Test Item Value Reference Range Comments SODIUM (BEAKER) (test 145 meq/L 136-145 code = 381) POTASSIUM (BEAKER) (test 4.4 meq/L 3.5-5.1 Specime n moderately code = 379) hemolyzed CHLORIDE (BEAKER) (test 94 meq/L 98-107 code = 382) CO2 (BEAKER) (test code = 43 meq/L 22-29 355) BLOOD UREA NITROGEN 27 mg/dL 7-21 (BEAKER) (test code = 354) CREATININE (BEAKER) (test 1.30 mg/dL 0.57-1.25 Specim en moderately code = 358) hemolyzed GLUCOSE RANDOM (BEAKER) 108 mg/dL 70-105 (test code = 652) CALCIUM (BEAKER) (test 9.1 mg/dL 8.4-10.2 code = 697) EGFR (BEAKER) (test code 56 mL/min/1.73 sq m EST IMATED GFR IS NOT = 1092) ACCURATE CREA TININE CLEARANCE IN PRE DICTING GLOMERULAR FILTR ATION RATE. ESTIMATED GFR IS NOT APPLICABLE F OR DIALYSIS PATIENT S. Billing Auditor ID - BSPOCT-GLUCOSE [id number] 12:41:00 Test Item Value Reference Range Comments POC-GLUCOSE METER (BEAKER) 120 mg/dL 70-110 : HEIDI ANNIE AT [facility] [address], [place] (test code = 1538) [facility]: Billing Auditor/Technic juana ID = [id number] for [place] ECHOLS BLOOD GAS, [id number] 08:24:00 Test Item Value Reference Range Comments PH ARTERIAL (BEAKER) (test code = 383) 7.57 7.35-7.45 PCO2 ARTERIAL (BEAKER) (test code = 384) 50 mmHg 35-45 PO2 ARTERIAL (BEAKER) (test code = 385) 68 mmHg 80-90 O2 SATURATION ARTERIAL (BEAKER) (test code = 95.6 % 96. 0-97.0 386) HCO3 ARTERIAL (BEAKER) (test code = 388) 45 mmol/L 21-29 BASE EXCESS ARTERIAL (BEAKER) (test code = 387) 20.4 mmol/L -2.0-3.0 PATIENT TEMPERATURE (BEAKER) (test code = 1818) 36.7 C FIO2 (BEAKER) (test code = 1819) 21.0 % POCT-GLUCOSE [id number] 08:22:00 Test Item Value Reference Range Comments POC-GLUCOSE METER (BEAKER) 143 mg/dL 70-110 : HEIDI ANNIE AT [facility] [address], [place] (test code = 1538) [facility]: Billing Auditor/Technic juana ID = [id number] for MSIBI, MNCED JODI [id number] 03:10:00 Test Item Value Reference Range Comments MAGNESIUM (BEAKER) (test code = 627) 1.9 mg/dL 1.6-2.6 Billing Auditor ID - SANDRA WCOMPREHENSIVE METABOLIC [id number] 02:30:00 Test Item Value Reference Range Comments TOTAL PROTEIN (BEAKER) 6.2 gm/dL 6.0-8.3 (test code = 770) ALBUMIN (BEAKER) (test 1.9 g/dL 3.5-5.0 code = 1145) ALKALINE PHOSPHATASE 169 U/L 40-150 (BEAKER) (test code = 346) BILIRUBIN TOTAL (BEAKER) 1.2 mg/dL 0.2-1.2 (test code = 377) SODIUM (BEAKER) (test code 145 meq/L 136-145 = 381) POTASSIUM (BEAKER) (test 2.6 meq/L 3.5-5.1 code = 379) CHLORIDE (BEAKER) (test 95 meq/L 98-107 code = 382) CO2 (BEAKER) (test code = 42 meq/L 22-29 355) BLOOD UREA NITROGEN 31 mg/dL 7-21 (BEAKER) (test code = 354) CREATININE (BEAKER) (test 1.09 mg/dL 0.57-1.25 code = 358) GLUCOSE RANDOM (BEAKER) 112 mg/dL 70-105 (test code = 652) CALCIUM (BEAKER) (test 8.7 mg/dL 8.4-10.2 code = 697) AST (SGOT) (BEAKER) (test 136 U/L 5-34 code = 353) ALT (SGPT) (BEAKER) (test 186 U/L 6-55 code = 347) EGFR (BEAKER) (test code = 68 mL/min/1.73 sq m E STIMATED GFR IS NOT 1092) ACCURATE CREA TININE CLEARANCE IN PRE DICTING GLOMERULAR FILTR ATION RATE. ESTIMATED GFR IS NOT APPLICABLE F OR DIALYSIS PATIENT S. Billing Auditor ID - SANDRA WVANCOMYCIN LEVEL, [id number] 02:22:00 Test Item Value Reference Range Comments VANCOMYCIN TROUGH (BEAKER) (test code = 522) 32.2 ug/mL 10. 0-20.0 Billing Auditor ID - SANDRA WCBC W/PLT COUNT & AUTO [id number] 02:07:00 Test Item Value Reference Range Comments WHITE BLOOD CELL COUNT (BEAKER) (test code = 12.0 K/ L 3.5 -10.5 775) RED BLOOD CELL COUNT (BEAKER) (test code = 761) 4.11 M/ L 4.63-6.08 HEMOGLOBIN (BEAKER) (test code = 410) 10.7 GM/DL 13.7-17.5 HEMATOCRIT (BEAKER) (test code = 411) 34.6 % 40.1-51.0 MEAN CORPUSCULAR VOLUME (BEAKER) (test code = 84.2 fL 79 .0-92.2 753) MEAN CORPUSCULAR HEMOGLOBIN (BEAKER) (test code 26.0 pg 25.7-32.2 = 751) MEAN CORPUSCULAR HEMOGLOBIN CONC (BEAKER) (test 30.9 GM/DL 32.3-36.5 code = 752) RED CELL DISTRIBUTION WIDTH (BEAKER) (test code 20.0 % 11.6-14.4 = 412) PLATELET COUNT (BEAKER) (test code = 756) 238 K/CU MM 150-45 0 MEAN PLATELET VOLUME (BEAKER) (test code = 754) 11.2 fL 9.4-12.4 NUCLEATED RED BLOOD CELLS (BEAKER) (test code = 0 /100 WBC 0-0 413) NEUTROPHILS RELATIVE PERCENT (BEAKER) (test code 75 % = 429) LYMPHOCYTES RELATIVE PERCENT (BEAKER) (test code 13 % = 430) MONOCYTES RELATIVE PERCENT (BEAKER) (test code = 10 % 431) EOSINOPHILS RELATIVE PERCENT (BEAKER) (test code 1 % = 432) BASOPHILS RELATIVE PERCENT (BEAKER) (test code = 1 % 437) NEUTROPHILS ABSOLUTE COUNT (BEAKER) (test code = 8.96 K/ L 1.78-5.38 670) LYMPHOCYTES ABSOLUTE COUNT (BEAKER) (test code = 1.50 K/ L 1.32-3.57 414) MONOCYTES ABSOLUTE COUNT (BEAKER) (test code = 1.21 K/ L 0 .30-0.82 415) EOSINOPHILS ABSOLUTE COUNT (BEAKER) (test code = 0.17 K/ L 0.04-0.54 416) BASOPHILS ABSOLUTE COUNT (BEAKER) (test code = 0.06 K/ L 0 .01-0.08 417) IMMATURE GRANULOCYTES-RELATIVE PERCENT (BEAKER) 0 % 0-1 (test code = 2801) POCT-GLUCOSE [id number] 23:29:00 Test Item Value Reference Range Comments POC-GLUCOSE METER (BEAKER) 93 mg/dL 70-110 : HEIDI ANNIE AT [address] (test code = 1538) [facility], [address]: Billing Auditor/Technic juana ID = [id number] for MSIBI, MNCED JODI POCT-GLUCOSE [id number] 18:01:00 Test Item Value Reference Range Comments POC-GLUCOSE METER (BEAKER) 80 mg/dL 70-110 : HEIDI ANNIE AT [address] (test code = 1538) [facility], [address]: Billing Auditor/Technic juana ID = [id number] for STEPAN ALONSO A POCT-GLUCOSE [id number] 12:05:00 Test Item Value Reference Range Comments POC-GLUCOSE METER (BEAKER) 77 mg/dL 70-110 : HEIDI ANNIE AT [facility] [address] (test code = 1538) [place], [address]: Billing Auditor/Technic juana ID = [id number] for STEPAN ALONSO BASIC METABOLIC [id number] 11:33:00 Test Item Value Reference Range Comments SODIUM (BEAKER) (test 147 meq/L 136-145 code = 381) POTASSIUM (BEAKER) (test 2.5 meq/L 3.5-5.1 code = 379) CHLORIDE (BEAKER) (test 97 meq/L 98-107 code = 382) CO2 (BEAKER) (test code = 41 meq/L 22-29 355) BLOOD UREA NITROGEN 32 mg/dL 7-21 (BEAKER) (test code = 354) CREATININE (BEAKER) (test 1.07 mg/dL 0.57-1.25 code = 358) GLUCOSE RANDOM (BEAKER) 89 mg/dL 70-105 (test code = 652) CALCIUM (BEAKER) (test 9.0 mg/dL 8.4-10.2 code = 697) EGFR (BEAKER) (test code 70 mL/min/1.73 sq m EST IMATED GFR IS NOT = 1092) ACCURATE CREA TININE CLEARANCE IN PRE DICTING GLOMERULAR FILTR ATION RATE. ESTIMATED GFR IS NOT APPLICABLE F OR DIALYSIS PATIENT S. Billing Auditor ID Sultana SCOTT [id number] 11:30:00 Test Item Value Reference Range Comments PHOSPHORUS (BEAKER) (test code = 604) 4.3 mg/dL 2.3-4.7 Billing Auditor ID Sultana SCOTT [id number] 11:30:00 Test Item Value Reference Range Comments MAGNESIUM (BEAKER) (test code = 627) 1.7 mg/dL 1.6-2.6 Billing Auditor ID Sultana SCOTT FCBC W/PLT COUNT & AUTO [id number] 11:20:00 Test Item Value Reference Range Comments WHITE BLOOD CELL COUNT (BEAKER) (test code = 11.1 K/ L 3.5 -10.5 775) RED BLOOD CELL COUNT (BEAKER) (test code = 761) 4.03 M/ L 4.63-6.08 HEMOGLOBIN (BEAKER) (test code = 410) 10.7 GM/DL 13.7-17.5 HEMATOCRIT (BEAKER) (test code = 411) 34.4 % 40.1-51.0 MEAN CORPUSCULAR VOLUME (BEAKER) (test code = 85.4 fL 79 .0-92.2 753) MEAN CORPUSCULAR HEMOGLOBIN (BEAKER) (test code 26.6 pg 25.7-32.2 = 751) MEAN CORPUSCULAR HEMOGLOBIN CONC (BEAKER) (test 31.1 GM/DL 32.3-36.5 code = 752) RED CELL DISTRIBUTION WIDTH (BEAKER) (test code 20.2 % 11.6-14.4 = 412) PLATELET COUNT (BEAKER) (test code = 756) 230 K/CU MM 150-45 0 MEAN PLATELET VOLUME (BEAKER) (test code = 754) 12.0 fL 9.4-12.4 NUCLEATED RED BLOOD CELLS (BEAKER) (test code = 0 /100 WBC 0-0 413) NEUTROPHILS RELATIVE PERCENT (BEAKER) (test code 73 % = 429) LYMPHOCYTES RELATIVE PERCENT (BEAKER) (test code 14 % = 430) MONOCYTES RELATIVE PERCENT (BEAKER) (test code = 12 % 431) EOSINOPHILS RELATIVE PERCENT (BEAKER) (test code 1 % = 432) BASOPHILS RELATIVE PERCENT (BEAKER) (test code = 1 % 437) NEUTROPHILS ABSOLUTE COUNT (BEAKER) (test code = 8.08 K/ L 1.78-5.38 670) LYMPHOCYTES ABSOLUTE COUNT (BEAKER) (test code = 1.55 K/ L 1.32-3.57 414) MONOCYTES ABSOLUTE COUNT (BEAKER) (test code = 1.28 K/ L 0 .30-0.82 415) EOSINOPHILS ABSOLUTE COUNT (BEAKER) (test code = 0.12 K/ L 0.04-0.54 416) BASOPHILS ABSOLUTE COUNT (BEAKER) (test code = 0.05 K/ L 0 .01-0.08 417) IMMATURE GRANULOCYTES-RELATIVE PERCENT (BEAKER) 0 % 0-1 (test code = 2801) POCT-GLUCOSE [id number] 07:42:00 Test Item Value Reference Range Comments POC-GLUCOSE METER (BEAKER) 82 mg/dL 70-110 : HEIDI ANNIE AT [address] (test code = 1538) [facility], [address]: Billing Auditor/Technic juana ID = [id number] for BRENDON KEY POCT-GLUCOSE [id number] 23:33:00 Test Item Value Reference Range Comments POC-GLUCOSE METER (BEAKER) 90 mg/dL 70-110 : HEIDI ANNIE AT [address] (test code = 1538) [facility], [address]: Billing Auditor/Technic juana ID = [id number] for BRENDON KEY ALAN POCT-GLUCOSE [id number] 18:34:00 Test Item Value Reference Range Comments POC-GLUCOSE METER (BEAKER) 83 mg/dL 70-110 : HEIDI ANNIE AT [address] (test code = 1538) [facility], [address]: Billing Auditor/Technic juana ID = [id number] for ALONSO, STEPAN A POCT-GLUCOSE [id number] 18:27:00 Test Item Value Reference Range Comments POC-GLUCOSE METER (BEAKER) 88 mg/dL 70-110 : HEIDI ANNIE AT [address] (test code = 1538) [facility], [address]: Billing Auditor/Technic juana ID = [id number] for ALONSO, STEPAN A POCT-GLUCOSE [id number] 18:22:00 Test Item Value Reference Range Comments POC-GLUCOSE METER (BEAKER) 84 mg/dL 70-110 : HEIDI ANNIE AT [address] (test code = 1538) [facility], [address]: Billing Auditor/Technic juana ID = [id number] for Marisela BERRIOS PROTHROMBIN [id number] 11:01:00 Test Item Value Reference Range Comments PROTIME (BEAKER) (test code = 759) 17.8 seconds 11.9-14.2 INR (BEAKER) (test code = 370) 1.5 <=5.9 Effective 07/24/2018: PT Reference Range ChangeNew: 11.9-14.2 Previous: 11.7- 14.7RECOMMENDED COUMADIN/WARFARIN INR THERAPY RANGESSTANDARD DOSE: 2.0-3.0 Includes: PROPHYLAXIS for venous thrombosis, systemic embolization; TREATMENT for venous thrombosis and/or pulmonary embolus.HIGH RISK: Target INR is2.5-3.5 for patients wiht mechanical heart valves.HEPATITIS PANEL, [id number] 09:24:00 Test Item Value Reference Range Comments HEPATITIS A IGM ANTIBODY (BEAKER) (test code = Reactive N onreactive 498) HEPATITIS B CORE IGM ANTIBODY (BEAKER) (test Nonreactive Non reactive code = 645) HEPATITIS C ANTIBODY (BEAKER) (test code = 367) Nonreactive Nonreactive HEPATITIS B SURFACE ANTIGEN (2) (BEAKER) (test Nonreactive N onreactive code = 2585) Billing Auditor ID - SONIA FB-TYPE NATRIURETIC FACTOR (BNP)2019-05-31 09:06:00 Test Item Value Reference Range Comments B-TYPE NATRIURETIC PEPTIDE (BEAKER) (test code = 1536 pg/mL 0-100 700) Billing Auditor ID - [place] WCOMPREHENSIVE METABOLIC [id number] 09:02:00 Test Item Value Reference Range Comments TOTAL PROTEIN (BEAKER) 6.7 gm/dL 6.0-8.3 Specimen moderately (test code = 770) hemolyzed ALBUMIN (BEAKER) (test 2.2 g/dL 3.5-5.0 Specimen moderately code = 1145) hemolyzed ALKALINE PHOSPHATASE 190 U/L 40-150 (BEAKER) (test code = 346) BILIRUBIN TOTAL (BEAKER) 1.3 mg/dL 0.2-1.2 Specime n moderately (test code = 377) hemolyzed SODIUM (BEAKER) (test code 143 meq/L 136-145 = 381) POTASSIUM (BEAKER) (test 3.8 meq/L 3.5-5.1 Specime n moderately code = 379) hemolyzed CHLORIDE (BEAKER) (test 99 meq/L 98-107 code = 382) CO2 (BEAKER) (test code = 35 meq/L 22-29 355) BLOOD UREA NITROGEN 42 mg/dL 7-21 (BEAKER) (test code = 354) CREATININE (BEAKER) (test 1.10 mg/dL 0.57-1.25 Specim en moderately code = 358) hemolyzed GLUCOSE RANDOM (BEAKER) 84 mg/dL 70-105 (test code = 652) CALCIUM (BEAKER) (test 8.9 mg/dL 8.4-10.2 code = 697) AST (SGOT) (BEAKER) (test 231 U/L 5-34 Specim en moderately code = 353) hemolyzed ALT (SGPT) (BEAKER) (test 254 U/L 6-55 Specim en moderately code = 347) hemolyzed EGFR (BEAKER) (test code = 67 mL/min/1.73 sq m E STIMATED GFR IS NOT 1092) ACCURATE CREA TININE CLEARANCE IN PRE DICTING GLOMERULAR FILTR ATION RATE. ESTIMATED GFR IS NOT APPLICABLE F OR DIALYSIS PATIENT S. Billing Auditor ID - [place] WVANCOMYCIN LEVEL, [id number] 08:59:00 Test Item Value Reference Range Comments VANCOMYCIN RANDOM (BEAKER) (test code = 523) 18.6 ug/mL Reference Range: No NormalsOperator ID - [place] WCBC W/PLT COUNT & AUTO [id number] 08:43:00 Test Item Value Reference Range Comments WHITE BLOOD CELL COUNT (BEAKER) (test code = 12.0 K/ L 3.5 -10.5 775) RED BLOOD CELL COUNT (BEAKER) (test code = 761) 4.13 M/ L 4.63-6.08 HEMOGLOBIN (BEAKER) (test code = 410) 10.9 GM/DL 13.7-17.5 HEMATOCRIT (BEAKER) (test code = 411) 35.9 % 40.1-51.0 MEAN CORPUSCULAR VOLUME (BEAKER) (test code = 86.9 fL 79 .0-92.2 753) MEAN CORPUSCULAR HEMOGLOBIN (BEAKER) (test code 26.4 pg 25.7-32.2 = 751) MEAN CORPUSCULAR HEMOGLOBIN CONC (BEAKER) (test 30.4 GM/DL 32.3-36.5 code = 752) RED CELL DISTRIBUTION WIDTH (BEAKER) (test code 20.0 % 11.6-14.4 = 412) PLATELET COUNT (BEAKER) (test code = 756) 167 K/CU MM 150-45 0 MEAN PLATELET VOLUME (BEAKER) (test code = 754) 11.6 fL 9.4-12.4 NUCLEATED RED BLOOD CELLS (BEAKER) (test code = 0 /100 WBC 0-0 413) NEUTROPHILS RELATIVE PERCENT (BEAKER) (test code 74 % = 429) LYMPHOCYTES RELATIVE PERCENT (BEAKER) (test code 16 % = 430) MONOCYTES RELATIVE PERCENT (BEAKER) (test code = 9 % 431) EOSINOPHILS RELATIVE PERCENT (BEAKER) (test code 1 % = 432) BASOPHILS RELATIVE PERCENT (BEAKER) (test code = 1 % 437) NEUTROPHILS ABSOLUTE COUNT (BEAKER) (test code = 8.78 K/ L 1.78-5.38 670) LYMPHOCYTES ABSOLUTE COUNT (BEAKER) (test code = 1.85 K/ L 1.32-3.57 414) MONOCYTES ABSOLUTE COUNT (BEAKER) (test code = 1.08 K/ L 0 .30-0.82 415) EOSINOPHILS ABSOLUTE COUNT (BEAKER) (test code = 0.13 K/ L 0.04-0.54 416) BASOPHILS ABSOLUTE COUNT (BEAKER) (test code = 0.07 K/ L 0 .01-0.08 417) IMMATURE GRANULOCYTES-RELATIVE PERCENT (BEAKER) 0 % 0-1 (test code = 2801) CREATININE, RANDOM [id number] 05:47:00 Test Item Value Reference Range Comments CREATININE URINE (BEAKER) (test code = 375) 24.9 mg/dL Reference Range: No NormalsOperator ID - PIAYA LSODIUM, RANDOM [id number] 05:47:00 Test Item Value Reference Range Comments SODIUM URINE (BEAKER) (test code = 243) 59 meq/L Reference Range: No NormalsOperator ID - PIAYA LUREA NITROGEN, RANDOM URINE 2019-05-31 05:47:00 Test Item Value Reference Range Comments UREA NITROGEN URINE (BEAKER) (test code = 538) 332 mg/dL Reference Range: No NormalsOperator ID - PIAYA LPOCT-GLUCOSE [id number] 00:03:00 Test Item Value Reference Range Comments POC-GLUCOSE METER (BEAKER) 89 mg/dL 70-110 : HEIDI ANNIE AT [facility] [address] [place] (test code = 1538) [place], [address]: Billing Auditor/Technic juana ID = [id number] for Marisela BERRIOS RAD, CHEST, 1 VIEW, NON [id number] 22:00:00Reason for exam:->Pt with noted OSH R sided effusion. Need portable image to compare with our last image. pt with prior surgery.Should this be performed at the bedside?->YesFINAL REPORT History: Right-sided effusion noted on outside imaging. Comparison: 05/08/2019 Findings: A single view of the chest is submitted. The cardiac silhouette is within normal limits for size. There is atherosclerotic calcification of the aorta. Sternotomy wires are in place. There is central vascular engorgement and bilateral interstitial and patchy airspace opacity, similar to previous and suggest a combination of atelectasis, edema and scarring. Pneumonitis should be excluded clinically. There is a moderately sized, loculated hydropneumothorax on the right, which appears similar when compared to previous. A small left pleural effusion is present. There is no acute bony abnormality. A gastrostomy tube bulb overlies the left upper quadrant. Signed: Reji Tyler MDReport Verified Date/Time: 05/30/2019 22:00:23 COMPREHENSIVE METABOLIC [id number] 21:22:00 Test Item Value Reference Range Comments TOTAL PROTEIN (BEAKER) 6.3 gm/dL 6.0-8.3 (test code = 770) ALBUMIN (BEAKER) (test 2.2 g/dL 3.5-5.0 code = 1145) ALKALINE PHOSPHATASE 195 U/L 40-150 (BEAKER) (test code = 346) BILIRUBIN TOTAL (BEAKER) 1.1 mg/dL 0.2-1.2 (test code = 377) SODIUM (BEAKER) (test code 142 meq/L 136-145 = 381) POTASSIUM (BEAKER) (test 2.8 meq/L 3.5-5.1 code = 379) CHLORIDE (BEAKER) (test 97 meq/L 98-107 code = 382) CO2 (BEAKER) (test code = 37 meq/L 22-29 355) BLOOD UREA NITROGEN 43 mg/dL 7-21 (BEAKER) (test code = 354) CREATININE (BEAKER) (test 1.09 mg/dL 0.57-1.25 code = 358) GLUCOSE RANDOM (BEAKER) 89 mg/dL 70-105 (test code = 652) CALCIUM (BEAKER) (test 8.5 mg/dL 8.4-10.2 code = 697) AST (SGOT) (BEAKER) (test 215 U/L 5-34 code = 353) ALT (SGPT) (BEAKER) (test 250 U/L 6-55 code = 347) EGFR (BEAKER) (test code = 68 mL/min/1.73 sq m E STIMATED GFR IS NOT 1092) ACCURATE CREA TININE CLEARANCE IN PRE DICTING GLOMERULAR FILTR ATION RATE. ESTIMATED GFR IS NOT APPLICABLE F OR DIALYSIS PATIENT S. Billing Auditor ID - CDPPROTHROMBIN TIME/[id number] 21:14:00 Test Item Value Reference Range Comments PROTIME (BEAKER) (test code = 759) 17.7 seconds 11.9-14.2 INR (BEAKER) (test code = 370) 1.5 <=5.9 Effective 07/24/2018: PT Reference Range ChangeNew: 11.9-14.2 Previous: 11.7- 14.7RECOMMENDED COUMADIN/WARFARIN INR THERAPY RANGESSTANDARD DOSE: 2.0-3.0 Includes: PROPHYLAXIS for venous thrombosis, systemic embolization; TREATMENT for venous thrombosis and/or pulmonary embolus.HIGH RISK: Target INR is2.5-3.5 for patients wiht mechanical heart valves.CBC W/PLT COUNT & AUTO [id number] 21:08:00 Test Item Value Reference Range Comments WHITE BLOOD CELL COUNT (BEAKER) (test code = 13.5 K/ L 3.5 -10.5 775) RED BLOOD CELL COUNT (BEAKER) (test code = 761) 3.99 M/ L 4.63-6.08 HEMOGLOBIN (BEAKER) (test code = 410) 10.3 GM/DL 13.7-17.5 HEMATOCRIT (BEAKER) (test code = 411) 33.7 % 40.1-51.0 MEAN CORPUSCULAR VOLUME (BEAKER) (test code = 84.5 fL 79 .0-92.2 753) MEAN CORPUSCULAR HEMOGLOBIN (BEAKER) (test code 25.8 pg 25.7-32.2 = 751) MEAN CORPUSCULAR HEMOGLOBIN CONC (BEAKER) (test 30.6 GM/DL 32.3-36.5 code = 752) RED CELL DISTRIBUTION WIDTH (BEAKER) (test code 19.8 % 11.6-14.4 = 412) PLATELET COUNT (BEAKER) (test code = 756) 208 K/CU MM 150-45 0 MEAN PLATELET VOLUME (BEAKER) (test code = 754) 11.1 fL 9.4-12.4 NUCLEATED RED BLOOD CELLS (BEAKER) (test code = 0 /100 WBC 0-0 413) NEUTROPHILS RELATIVE PERCENT (BEAKER) (test code 80 % = 429) LYMPHOCYTES RELATIVE PERCENT (BEAKER) (test code 10 % = 430) MONOCYTES RELATIVE PERCENT (BEAKER) (test code = 8 % 431) EOSINOPHILS RELATIVE PERCENT (BEAKER) (test code 1 % = 432) BASOPHILS RELATIVE PERCENT (BEAKER) (test code = 0 % 437) NEUTROPHILS ABSOLUTE COUNT (BEAKER) (test code = 10.80 K/ L 1.78-5.38 670) LYMPHOCYTES ABSOLUTE COUNT (BEAKER) (test code = 1.40 K/ L 1.32-3.57 414) MONOCYTES ABSOLUTE COUNT (BEAKER) (test code = 1.02 K/ L 0 .30-0.82 415) EOSINOPHILS ABSOLUTE COUNT (BEAKER) (test code = 0.14 K/ L 0.04-0.54 416) BASOPHILS ABSOLUTE COUNT (BEAKER) (test code = 0.06 K/ L 0 .01-0.08 417) IMMATURE GRANULOCYTES-RELATIVE PERCENT (BEAKER) 0 % 0-1 (test code = 2801) AFB CULTURE + SMEAR (NON-SPUTUM)2019-05-26 15:52:00 Test Item Value Reference Range Comments CULTURE (BEAKER) (test code = No acid-fast bacilli isolated 1095) in 42 days AFB SMEAR (BEAKER) (test code No acid fast bacilli seen = 994) AFB CULTURE + SMEAR (NON-SPUTUM)2019-05-26 15:52:00 Test Item Value Reference Range Comments CULTURE (BEAKER) (test code = No acid-fast bacilli isolated 1095) in 42 days AFB SMEAR (BEAKER) (test code No acid fast bacilli seen = 994) AFB CULTURE + SMEAR (NON-SPUTUM)2019-05-26 15:52:00 Test Item Value Reference Range Comments CULTURE (BEAKER) (test code = No acid-fast bacilli isolated 1095) in 42 days AFB SMEAR (BEAKER) (test code No acid fast bacilli seen = 994) AFB CULTURE + SMEAR (NON-SPUTUM)2019-05-26 15:52:00 Test Item Value Reference Range Comments CULTURE (BEAKER) (test code = No acid-fast bacilli isolated 1095) in 42 days AFB SMEAR (BEAKER) (test code No acid fast bacilli seen = 994) AFB CULTURE + SMEAR (NON-SPUTUM)2019-05-26 15:52:00 Test Item Value Reference Range Comments CULTURE (BEAKER) (test code = No acid-fast bacilli isolated 1095) in 42 days AFB SMEAR (BEAKER) (test code No acid fast bacilli seen = 994) AFB CULTURE + SMEAR (NON-SPUTUM)2019-05-26 15:52:00 Test Item Value Reference Range Comments CULTURE (BEAKER) (test code = No acid-fast bacilli isolated 1095) in 42 days AFB SMEAR (BEAKER) (test code No acid fast bacilli seen = 994) FUNGUS CULTURE + [id number] 16:19:00 Test Item Value Reference Range Comments CULTURE (BEAKER) (test code = No fungus isolated in 28 days 1095) FUNGUS SMEAR (BEAKER) (test No fungi seen code = 1406) FUNGUS CULTURE + [id number] 16:19:00 Test Item Value Reference Range Comments CULTURE (BEAKER) (test code = No fungus isolated in 28 days 1095) FUNGUS SMEAR (BEAKER) (test <1+ yeast code = 1406) FUNGUS CULTURE + [id number] 16:19:00 Test Item Value Reference Range Comments CULTURE (BEAKER) (test code = No fungus isolated in 28 days 1095) FUNGUS SMEAR (BEAKER) (test <1+ yeast code = 1406) FUNGUS CULTURE + [id number] 16:19:00 Test Item Value Reference Range Comments CULTURE (BEAKER) (test code = No fungus isolated in 28 days 1095) FUNGUS SMEAR (BEAKER) (test No fungi seen code = 1406) FUNGUS CULTURE + [id number] 16:19:00 Test Item Value Reference Range Comments CULTURE (BEAKER) (test code = No fungus isolated in 28 days 1095) FUNGUS SMEAR (BEAKER) (test <1+ yeast code = 1406) RAD, CHEST, 2 [id number] 08:51:00Reason for Exam:->PLEURAL EFFUSIONFINAL REPORT EXAMINATION: PA [...] reactive right pleural change. Signed: Fredi Hua Verified Date/Time: 05/09/2019 08:51:36 Reading Location: [facility] Reading Room [address] [place] [address] AFB CULTURE + SMEAR (NON-SPUTUM)2019-05-06 22:55:00 Test Item Value Reference Range Comments CULTURE (BEAKER) (test code = No acid-fast bacilli isolated 1095) in 42 days AFB SMEAR (BEAKER) (test code No acid fast bacilli seen = 994) AFB CULTURE + SMEAR (NON-SPUTUM)2019-05-06 22:55:00 Test Item Value Reference Range Comments CULTURE (BEAKER) (test code = No acid-fast bacilli isolated 1095) in 42 days AFB SMEAR (BEAKER) (test code No acid fast bacilli seen = 994) AFB CULTURE + SMEAR (NON-SPUTUM)2019-05-06 22:55:00 Test Item Value Reference Range Comments CULTURE (BEAKER) (test code = No acid-fast bacilli isolated 1095) in 42 days AFB SMEAR (BEAKER) (test code No acid fast bacilli seen = 994) AFB CULTURE + SMEAR (NON-SPUTUM)2019-05-06 22:55:00 Test Item Value Reference Range Comments CULTURE (BEAKER) (test code = No acid-fast bacilli isolated 1095) in 42 days AFB SMEAR (BEAKER) (test code No acid fast bacilli seen = 994) FUNGUS CULTURE + [id number] 17:35:00 Test Item Value Reference Range Comments CULTURE (BEAKER) (test code = <1 + Ana albicans 1095) FUNGUS SMEAR (BEAKER) (test code = No fungi seen 1406) RAD, CHEST, 1 VIEW, NON [id number] 08:25:00Reason for exam:->s/p R VATSShould this be [...] MDReport Verified Date/Time: 04/25/2019 08:25:05 Reading Location: [facility] Radiology Reading Room CBC W/PLT COUNT & AUTO [id number] 07:17:00 Test Item Value Reference Range Comments WHITE BLOOD CELL COUNT (BEAKER) (test code = 10.6 K/ L 3.5 -10.5 775) RED BLOOD CELL COUNT (BEAKER) (test code = 761) 3.46 M/ L 4.63-6.08 HEMOGLOBIN (BEAKER) (test code = 410) 9.9 GM/DL 13.7-17.5 HEMATOCRIT (BEAKER) (test code = 411) 31.8 % 40.1-51.0 MEAN CORPUSCULAR VOLUME (BEAKER) (test code = 91.9 fL 79 .0-92.2 753) MEAN CORPUSCULAR HEMOGLOBIN (BEAKER) (test code 28.6 pg 25.7-32.2 = 751) MEAN CORPUSCULAR HEMOGLOBIN CONC (BEAKER) (test 31.1 GM/DL 32.3-36.5 code = 752) RED CELL DISTRIBUTION WIDTH (BEAKER) (test code 18.6 % 11.6-14.4 = 412) PLATELET COUNT (BEAKER) (test code = 756) 295 K/CU MM 150-45 0 MEAN PLATELET VOLUME (BEAKER) (test code = 754) 11.6 fL 9.4-12.4 NUCLEATED RED BLOOD CELLS (BEAKER) (test code = 0 /100 WBC 0-0 413) NEUTROPHILS RELATIVE PERCENT (BEAKER) (test code 68 % = 429) LYMPHOCYTES RELATIVE PERCENT (BEAKER) (test code 17 % = 430) MONOCYTES RELATIVE PERCENT (BEAKER) (test code = 10 % 431) EOSINOPHILS RELATIVE PERCENT (BEAKER) (test code 4 % = 432) BASOPHILS RELATIVE PERCENT (BEAKER) (test code = 1 % 437) NEUTROPHILS ABSOLUTE COUNT (BEAKER) (test code = 7.18 K/ L 1.78-5.38 670) LYMPHOCYTES ABSOLUTE COUNT (BEAKER) (test code = 1.77 K/ L 1.32-3.57 414) MONOCYTES ABSOLUTE COUNT (BEAKER) (test code = 1.06 K/ L 0 .30-0.82 415) EOSINOPHILS ABSOLUTE COUNT (BEAKER) (test code = 0.47 K/ L 0.04-0.54 416) BASOPHILS ABSOLUTE COUNT (BEAKER) (test code = 0.05 K/ L 0 .01-0.08 417) IMMATURE GRANULOCYTES-RELATIVE PERCENT (BEAKER) 1 % 0-1 (test code = 2801) [id number] 06:30:00 Test Item Value Reference Range Comments PHOSPHORUS (BEAKER) (test code = 604) 2.6 mg/dL 2.3-4.7 Billing Auditor ID - PIAYA [id number] 06:30:00 Test Item Value Reference Range Comments MAGNESIUM (BEAKER) (test code = 627) 1.7 mg/dL 1.6-2.6 Billing Auditor ID - PIAYA LBASIC METABOLIC [id number] 06:30:00 Test Item Value Reference Range Comments SODIUM (BEAKER) (test 144 meq/L 136-145 code = 381) POTASSIUM (BEAKER) (test 3.3 meq/L 3.5-5.1 code = 379) CHLORIDE (BEAKER) (test 110 meq/L 98-107 code = 382) CO2 (BEAKER) (test code = 29 meq/L 22-29 355) BLOOD UREA NITROGEN 22 mg/dL 7-21 (BEAKER) (test code = 354) CREATININE (BEAKER) (test 0.74 mg/dL 0.57-1.25 code = 358) GLUCOSE RANDOM (BEAKER) 127 mg/dL 70-105 (test code = 652) CALCIUM (BEAKER) (test 7.7 mg/dL 8.4-10.2 code = 697) EGFR (BEAKER) (test code 106 mL/min/1.73 sq m ES TIMATED GFR IS NOT = 1092) ACCURATE CREA TININE CLEARANCE IN PRE DICTING GLOMERULAR FILTR ATION RATE. ESTIMATED GFR IS NOT APPLICABLE F OR DIALYSIS PATIENT S. Billing Auditor ID - EMILIE LRAD, CHEST, 1 VIEW, NON [id number] 09:38:00Reason for exam:->s/p R VATSShould this be [...] 1. No significant interval change. Signed: Aiden Willett MDReport Verified Date/Time: 04/24/2019 09:38:07 Reading Location: [facility] Radiology Reading Room BASIC METABOLIC [id number] 06:26:00 Test Item Value Reference Range Comments SODIUM (BEAKER) (test 143 meq/L 136-145 code = 381) POTASSIUM (BEAKER) (test 3.4 meq/L 3.5-5.1 code = 379) CHLORIDE (BEAKER) (test 110 meq/L 98-107 code = 382) CO2 (BEAKER) (test code = 27 meq/L 22-29 355) BLOOD UREA NITROGEN 23 mg/dL 7-21 (BEAKER) (test code = 354) CREATININE (BEAKER) (test 0.77 mg/dL 0.57-1.25 code = 358) GLUCOSE RANDOM (BEAKER) 115 mg/dL 70-105 (test code = 652) CALCIUM (BEAKER) (test 7.6 mg/dL 8.4-10.2 code = 697) EGFR (BEAKER) (test code 102 mL/min/1.73 sq m ES TIMATED GFR IS NOT = 1092) ACCURATE CREA TININE CLEARANCE IN PRE DICTING GLOMERULAR FILTR ATION RATE. ESTIMATED GFR IS NOT APPLICABLE F OR DIALYSIS PATIENT S. Billing Auditor ID - EMILIE LSpecimen slightly [id number] 06:19:00 Test Item Value Reference Range Comments PHOSPHORUS (BEAKER) (test code = 604) 3.3 mg/dL 2.3-4.7 Billing Auditor ID - EMILIE [id number] 06:19:00 Test Item Value Reference Range Comments MAGNESIUM (BEAKER) (test code = 627) 1.8 mg/dL 1.6-2.6 Billing Auditor ID - EMILIE LCBC W/PLT COUNT & AUTO [id number] 04:39:00 Test Item Value Reference Range Comments WHITE BLOOD CELL COUNT (BEAKER) (test code = 10.8 K/ L 3.5 -10.5 775) RED BLOOD CELL COUNT (BEAKER) (test code = 761) 3.54 M/ L 4.63-6.08 HEMOGLOBIN (BEAKER) (test code = 410) 9.8 GM/DL 13.7-17.5 HEMATOCRIT (BEAKER) (test code = 411) 32.8 % 40.1-51.0 MEAN CORPUSCULAR VOLUME (BEAKER) (test code = 92.7 fL 79 .0-92.2 753) MEAN CORPUSCULAR HEMOGLOBIN (BEAKER) (test code 27.7 pg 25.7-32.2 = 751) MEAN CORPUSCULAR HEMOGLOBIN CONC (BEAKER) (test 29.9 GM/DL 32.3-36.5 code = 752) RED CELL DISTRIBUTION WIDTH (BEAKER) (test code 18.7 % 11.6-14.4 = 412) PLATELET COUNT (BEAKER) (test code = 756) 287 K/CU MM 150-45 0 MEAN PLATELET VOLUME (BEAKER) (test code = 754) 10.5 fL 9.4-12.4 NUCLEATED RED BLOOD CELLS (BEAKER) (test code = 0 /100 WBC 0-0 413) NEUTROPHILS RELATIVE PERCENT (BEAKER) (test code 62 % = 429) LYMPHOCYTES RELATIVE PERCENT (BEAKER) (test code 24 % = 430) MONOCYTES RELATIVE PERCENT (BEAKER) (test code = 9 % 431) EOSINOPHILS RELATIVE PERCENT (BEAKER) (test code 5 % = 432) BASOPHILS RELATIVE PERCENT (BEAKER) (test code = 1 % 437) NEUTROPHILS ABSOLUTE COUNT (BEAKER) (test code = 6.66 K/ L 1.78-5.38 670) LYMPHOCYTES ABSOLUTE COUNT (BEAKER) (test code = 2.53 K/ L 1.32-3.57 414) MONOCYTES ABSOLUTE COUNT (BEAKER) (test code = 0.96 K/ L 0 .30-0.82 415) EOSINOPHILS ABSOLUTE COUNT (BEAKER) (test code = 0.54 K/ L 0.04-0.54 416) BASOPHILS ABSOLUTE COUNT (BEAKER) (test code = 0.05 K/ L 0 .01-0.08 417) IMMATURE GRANULOCYTES-RELATIVE PERCENT (BEAKER) 0 % 0-1 (test code = 2801) FL, ESOPH, SWALLOW FUNCTION, WITH CINE OR [id number] 14:55:00Reason for exam:->dysphagiaFINAL REPORT Modified barium swallow exam with speech pathology service CLINICAL HISTORY: dysphagia IMPRESSION: Please see the speech pathology service report for details. Barium contrast of multiple consistencies is given to the patient to swallow. Fluoroscopic observation is performed during swallowing. Small aspiration on honey consistency. Fluoro time: 0.9 minutes Number of images: 19 Signed: Maien Moncada MDRort Verified Date/Time: 04/23/2019 14:55:57 Reading Location: [address] , CHEST, 1 VIEW, NON [id number] 14:41:00Reason for exam:->s/p ct removalShould this be [...] MDReport Verified Date/Time: 04/23/2019 14:41:23 Reading Location: [facility] Radiology Reading Room RAD, CHEST, 1 VIEW, NON [id number] 09:12:00Reason for exam:->s/p R VATSShould this be [...] JR Jara Robert MDReport Verified Date/Time: 04/23/2019 09:12:53 Reading Location: [facility] Radiology Reading Room BASIC METABOLIC [id number] 05:25:00 Test Item Value Reference Range Comments SODIUM (BEAKER) (test 144 meq/L 136-145 code = 381) POTASSIUM (BEAKER) (test 3.3 meq/L 3.5-5.1 code = 379) CHLORIDE (BEAKER) (test 111 meq/L 98-107 code = 382) CO2 (BEAKER) (test code = 29 meq/L 22-29 355) BLOOD UREA NITROGEN 24 mg/dL 7-21 (BEAKER) (test code = 354) CREATININE (BEAKER) (test 0.78 mg/dL 0.57-1.25 code = 358) GLUCOSE RANDOM (BEAKER) 118 mg/dL 70-105 (test code = 652) CALCIUM (BEAKER) (test 7.5 mg/dL 8.4-10.2 code = 697) EGFR (BEAKER) (test code 100 mL/min/1.73 sq m ES TIMATED GFR IS NOT = 1092) ACCURATE CREA TININE CLEARANCE IN PRE DICTING GLOMERULAR FILTR ATION RATE. ESTIMATED GFR IS NOT APPLICABLE F OR DIALYSIS PATIENT S. Billing Auditor ID - ELISSA [id number] 05:24:00 Test Item Value Reference Range Comments PREALBUMIN (BEAKER) (test code = 586) 7 mg/dL 14-45 Billing Auditor ID - ELISSA [id number] 05:23:00 Test Item Value Reference Range Comments PHOSPHORUS (BEAKER) (test code = 604) 2.8 mg/dL 2.3-4.7 Billing Auditor ID - ELISSA [id number] 05:23:00 Test Item Value Reference Range Comments MAGNESIUM (BEAKER) (test code = 627) 1.9 mg/dL 1.6-2.6 Billing Auditor ID - ELISSA MCBC W/PLT COUNT & AUTO [id number] 04:58:00 Test Item Value Reference Range Comments WHITE BLOOD CELL COUNT (BEAKER) (test code = 11.1 K/ L 3.5 -10.5 775) RED BLOOD CELL COUNT (BEAKER) (test code = 761) 3.34 M/ L 4.63-6.08 HEMOGLOBIN (BEAKER) (test code = 410) 9.4 GM/DL 13.7-17.5 HEMATOCRIT (BEAKER) (test code = 411) 30.7 % 40.1-51.0 MEAN CORPUSCULAR VOLUME (BEAKER) (test code = 91.9 fL 79 .0-92.2 753) MEAN CORPUSCULAR HEMOGLOBIN (BEAKER) (test code 28.1 pg 25.7-32.2 = 751) MEAN CORPUSCULAR HEMOGLOBIN CONC (BEAKER) (test 30.6 GM/DL 32.3-36.5 code = 752) RED CELL DISTRIBUTION WIDTH (BEAKER) (test code 19.0 % 11.6-14.4 = 412) PLATELET COUNT (BEAKER) (test code = 756) 271 K/CU MM 150-45 0 MEAN PLATELET VOLUME (BEAKER) (test code = 754) 10.9 fL 9.4-12.4 NUCLEATED RED BLOOD CELLS (BEAKER) (test code = 0 /100 WBC 0-0 413) NEUTROPHILS RELATIVE PERCENT (BEAKER) (test code 66 % = 429) LYMPHOCYTES RELATIVE PERCENT (BEAKER) (test code 19 % = 430) MONOCYTES RELATIVE PERCENT (BEAKER) (test code = 11 % 431) EOSINOPHILS RELATIVE PERCENT (BEAKER) (test code 4 % = 432) BASOPHILS RELATIVE PERCENT (BEAKER) (test code = 1 % 437) NEUTROPHILS ABSOLUTE COUNT (BEAKER) (test code = 7.29 K/ L 1.78-5.38 670) LYMPHOCYTES ABSOLUTE COUNT (BEAKER) (test code = 2.15 K/ L 1.32-3.57 414) MONOCYTES ABSOLUTE COUNT (BEAKER) (test code = 1.16 K/ L 0 .30-0.82 415) EOSINOPHILS ABSOLUTE COUNT (BEAKER) (test code = 0.40 K/ L 0.04-0.54 416) BASOPHILS ABSOLUTE COUNT (BEAKER) (test code = 0.05 K/ L 0 .01-0.08 417) IMMATURE GRANULOCYTES-RELATIVE PERCENT (BEAKER) 1 % 0-1 (test code = 2801) RAD, CHEST, 1 VIEW, NON [id number] 10:13:00Reason for exam:->s/p R VATSShould this be [...] MDReport Verified Date/Time: 04/22/2019 10:13:43 Reading Location: [facility] Radiology Reading Room 10:13 AMBASIC METABOLIC [id number] 04:59:00 Test Item Value Reference Range Comments SODIUM (BEAKER) (test 146 meq/L 136-145 code = 381) POTASSIUM (BEAKER) (test 4.0 meq/L 3.5-5.1 code = 379) CHLORIDE (BEAKER) (test 115 meq/L 98-107 code = 382) CO2 (BEAKER) (test code = 29 meq/L 22-29 355) BLOOD UREA NITROGEN 21 mg/dL 7-21 (BEAKER) (test code = 354) CREATININE (BEAKER) (test 0.74 mg/dL 0.57-1.25 code = 358) GLUCOSE RANDOM (BEAKER) 108 mg/dL 70-105 (test code = 652) CALCIUM (BEAKER) (test 7.5 mg/dL 8.4-10.2 code = 697) EGFR (BEAKER) (test code 106 mL/min/1.73 sq m ES TIMATED GFR IS NOT = 1092) ACCURATE CREA TININE CLEARANCE IN PRE DICTING GLOMERULAR FILTR ATION RATE. ESTIMATED GFR IS NOT APPLICABLE F OR DIALYSIS PATIENT S. Billing Auditor ID - ELISSA [id number] 04:57:00 Test Item Value Reference Range Comments PHOSPHORUS (BEAKER) (test code = 604) 2.7 mg/dL 2.3-4.7 Billing Auditor ID - ELISSA [id number] 04:57:00 Test Item Value Reference Range Comments MAGNESIUM (BEAKER) (test code = 627) 1.9 mg/dL 1.6-2.6 Billing Auditor ID - ELISSA MCBC W/PLT COUNT & AUTO [id number] 03:33:00 Test Item Value Reference Range Comments WHITE BLOOD CELL COUNT (BEAKER) (test code = 10.5 K/ L 3.5 -10.5 775) RED BLOOD CELL COUNT (BEAKER) (test code = 761) 3.53 M/ L 4.63-6.08 HEMOGLOBIN (BEAKER) (test code = 410) 10.0 GM/DL 13.7-17.5 HEMATOCRIT (BEAKER) (test code = 411) 32.8 % 40.1-51.0 MEAN CORPUSCULAR VOLUME (BEAKER) (test code = 92.9 fL 79 .0-92.2 753) MEAN CORPUSCULAR HEMOGLOBIN (BEAKER) (test code 28.3 pg 25.7-32.2 = 751) MEAN CORPUSCULAR HEMOGLOBIN CONC (BEAKER) (test 30.5 GM/DL 32.3-36.5 code = 752) RED CELL DISTRIBUTION WIDTH (BEAKER) (test code 19.2 % 11.6-14.4 = 412) PLATELET COUNT (BEAKER) (test code = 756) 272 K/CU MM 150-45 0 MEAN PLATELET VOLUME (BEAKER) (test code = 754) 11.1 fL 9.4-12.4 NUCLEATED RED BLOOD CELLS (BEAKER) (test code = 0 /100 WBC 0-0 413) NEUTROPHILS RELATIVE PERCENT (BEAKER) (test code 67 % = 429) LYMPHOCYTES RELATIVE PERCENT (BEAKER) (test code 18 % = 430) MONOCYTES RELATIVE PERCENT (BEAKER) (test code = 11 % 431) EOSINOPHILS RELATIVE PERCENT (BEAKER) (test code 5 % = 432) BASOPHILS RELATIVE PERCENT (BEAKER) (test code = 1 % 437) NEUTROPHILS ABSOLUTE COUNT (BEAKER) (test code = 7.00 K/ L 1.78-5.38 670) LYMPHOCYTES ABSOLUTE COUNT (BEAKER) (test code = 1.84 K/ L 1.32-3.57 414) MONOCYTES ABSOLUTE COUNT (BEAKER) (test code = 1.10 K/ L 0 .30-0.82 415) EOSINOPHILS ABSOLUTE COUNT (BEAKER) (test code = 0.47 K/ L 0.04-0.54 416) BASOPHILS ABSOLUTE COUNT (BEAKER) (test code = 0.06 K/ L 0 .01-0.08 417) IMMATURE GRANULOCYTES-RELATIVE PERCENT (BEAKER) 0 % 0-1 (test code = 2801) ANAEROBIC [id number] 17:25:00 Test Item Value Reference Range Comments CULTURE (BEAKER) (test code = 1095) No anaerobes isolated ANAEROBIC [id number] 17:24:00 Test Item Value Reference Range Comments CULTURE (BEAKER) (test code = 1095) No anaerobes isolated ANAEROBIC [id number] 17:24:00 Test Item Value Reference Range Comments CULTURE (BEAKER) (test code = 1095) No anaerobes isolated ANAEROBIC [id number] 17:23:00 Test Item Value Reference Range Comments CULTURE (BEAKER) (test code = 1095) No anaerobes isolated ANAEROBIC [id number] 17:23:00 Test Item Value Reference Range Comments CULTURE (BEAKER) (test code = 1095) No anaerobes isolated BASIC METABOLIC [id number] 12:47:00 Test Item Value Reference Range Comments SODIUM (BEAKER) (test 146 meq/L 136-145 code = 381) POTASSIUM (BEAKER) (test 3.8 meq/L 3.5-5.1 Specime n slightly code = 379) hemolyzed CHLORIDE (BEAKER) (test 111 meq/L 98-107 code = 382) CO2 (BEAKER) (test code = 31 meq/L 22-29 355) BLOOD UREA NITROGEN 23 mg/dL 7-21 (BEAKER) (test code = 354) CREATININE (BEAKER) (test 0.71 mg/dL 0.57-1.25 Specim en slightly code = 358) hemolyzed GLUCOSE RANDOM (BEAKER) 92 mg/dL 70-105 (test code = 652) CALCIUM (BEAKER) (test 7.5 mg/dL 8.4-10.2 code = 697) EGFR (BEAKER) (test code 112 mL/min/1.73 sq m ES TIMATED GFR IS NOT = 1092) ACCURATE CREA TININE CLEARANCE IN PRE DICTING GLOMERULAR FILTR ATION RATE. ESTIMATED GFR IS NOT APPLICABLE F OR DIALYSIS PATIENT S. Billing Auditor ID Sultana SCOTT [id number] 12:46:00 Test Item Value Reference Range Comments MAGNESIUM (BEAKER) (test code = 2.2 mg/dL 1.6-2.6 Specimen slightly hemolyzed 627) Billing Auditor ID Sultana SCOTT FBASIC METABOLIC [id number] 05:36:00 Test Item Value Reference Range Comments SODIUM (BEAKER) (test 144 meq/L 136-145 code = 381) POTASSIUM (BEAKER) (test 3.4 meq/L 3.5-5.1 code = 379) CHLORIDE (BEAKER) (test 111 meq/L 98-107 code = 382) CO2 (BEAKER) (test code = 28 meq/L 22-29 355) BLOOD UREA NITROGEN 22 mg/dL 7-21 (BEAKER) (test code = 354) CREATININE (BEAKER) (test 0.71 mg/dL 0.57-1.25 code = 358) GLUCOSE RANDOM (BEAKER) 102 mg/dL 70-105 (test code = 652) CALCIUM (BEAKER) (test 7.4 mg/dL 8.4-10.2 code = 697) EGFR (BEAKER) (test code 112 mL/min/1.73 sq m ES TIMATED GFR IS NOT = 1092) ACCURATE CREA TININE CLEARANCE IN PRE DICTING GLOMERULAR FILTR ATION RATE. ESTIMATED GFR IS NOT APPLICABLE F OR DIALYSIS PATIENT S. Billing Auditor ID - SANDRA [id number] 05:32:00 Test Item Value Reference Range Comments PHOSPHORUS (BEAKER) (test code = 604) 3.4 mg/dL 2.3-4.7 Billing Auditor ID - SANDRA [id number] 05:32:00 Test Item Value Reference Range Comments MAGNESIUM (BEAKER) (test code = 627) 2.0 mg/dL 1.6-2.6 Billing Auditor ID - SANDRA WCBC W/PLT COUNT & AUTO [id number] 05:07:00 Test Item Value Reference Range Comments WHITE BLOOD CELL COUNT (BEAKER) (test code = 7.3 K/ L 3.5 -10.5 775) RED BLOOD CELL COUNT (BEAKER) (test code = 761) 3.51 M/ L 4.63-6.08 HEMOGLOBIN (BEAKER) (test code = 410) 10.0 GM/DL 13.7-17.5 HEMATOCRIT (BEAKER) (test code = 411) 32.5 % 40.1-51.0 MEAN CORPUSCULAR VOLUME (BEAKER) (test code = 92.6 fL 79 .0-92.2 753) MEAN CORPUSCULAR HEMOGLOBIN (BEAKER) (test code 28.5 pg 25.7-32.2 = 751) MEAN CORPUSCULAR HEMOGLOBIN CONC (BEAKER) (test 30.8 GM/DL 32.3-36.5 code = 752) RED CELL DISTRIBUTION WIDTH (BEAKER) (test code 19.0 % 11.6-14.4 = 412) PLATELET COUNT (BEAKER) (test code = 756) 221 K/CU MM 150-45 0 MEAN PLATELET VOLUME (BEAKER) (test code = 754) 10.6 fL 9.4-12.4 NUCLEATED RED BLOOD CELLS (BEAKER) (test code = 0 /100 WBC 0-0 413) NEUTROPHILS RELATIVE PERCENT (BEAKER) (test code 47 % = 429) LYMPHOCYTES RELATIVE PERCENT (BEAKER) (test code 32 % = 430) MONOCYTES RELATIVE PERCENT (BEAKER) (test code = 13 % 431) EOSINOPHILS RELATIVE PERCENT (BEAKER) (test code 7 % = 432) BASOPHILS RELATIVE PERCENT (BEAKER) (test code = 1 % 437) NEUTROPHILS ABSOLUTE COUNT (BEAKER) (test code = 3.43 K/ L 1.78-5.38 670) LYMPHOCYTES ABSOLUTE COUNT (BEAKER) (test code = 2.31 K/ L 1.32-3.57 414) MONOCYTES ABSOLUTE COUNT (BEAKER) (test code = 0.95 K/ L 0 .30-0.82 415) EOSINOPHILS ABSOLUTE COUNT (BEAKER) (test code = 0.54 K/ L 0.04-0.54 416) BASOPHILS ABSOLUTE COUNT (BEAKER) (test code = 0.04 K/ L 0 .01-0.08 417) IMMATURE GRANULOCYTES-RELATIVE PERCENT (BEAKER) 0 % 0-1 (test code = 2801) RAD, CHEST, 1 VIEW, NON [id number] 04:30:00Reason for exam:->s/p R VATSShould this be [...] Stable surgical changes.Additional findings: None. Signed:Tomasa Luque MDRepcrittenton behavioral health Verified Date/Time: 04/21/2019 04:30:21 BASIC METABOLIC [id number] 16:21:00 Test Item Value Reference Range Comments SODIUM (BEAKER) (test 146 meq/L 136-145 code = 381) POTASSIUM (BEAKER) (test 3.6 meq/L 3.5-5.1 code = 379) CHLORIDE (BEAKER) (test 111 meq/L 98-107 code = 382) CO2 (BEAKER) (test code = 32 meq/L 22-29 355) BLOOD UREA NITROGEN 22 mg/dL 7-21 (BEAKER) (test code = 354) CREATININE (BEAKER) (test 0.74 mg/dL 0.57-1.25 code = 358) GLUCOSE RANDOM (BEAKER) 118 mg/dL 70-105 (test code = 652) CALCIUM (BEAKER) (test 7.7 mg/dL 8.4-10.2 code = 697) EGFR (BEAKER) (test code 106 mL/min/1.73 sq m ES TIMATED GFR IS NOT = 1092) ACCURATE CREA TININE CLEARANCE IN PRE DICTING GLOMERULAR FILTR ATION RATE. ESTIMATED GFR IS NOT APPLICABLE F OR DIALYSIS PATIENT S. Billing Auditor ID Sultana SCOTT [id number] 15:52:00 Test Item Value Reference Range Comments PHOSPHORUS (BEAKER) (test code = 604) 2.7 mg/dL 2.3-4.7 Billing Auditor ID Sultana SCOTT [id number] 15:52:00 Test Item Value Reference Range Comments MAGNESIUM (BEAKER) (test code = 627) 2.0 mg/dL 1.6-2.6 Billing Auditor ID Sultana SCOTT FCBC W/PLT COUNT & AUTO [id number] 15:27:00 Test Item Value Reference Range Comments WHITE BLOOD CELL COUNT (BEAKER) (test code = 8.5 K/ L 3.5 -10.5 775) RED BLOOD CELL COUNT (BEAKER) (test code = 761) 3.26 M/ L 4.63-6.08 HEMOGLOBIN (BEAKER) (test code = 410) 9.4 GM/DL 13.7-17.5 HEMATOCRIT (BEAKER) (test code = 411) 29.4 % 40.1-51.0 MEAN CORPUSCULAR VOLUME (BEAKER) (test code = 90.2 fL 79 .0-92.2 753) MEAN CORPUSCULAR HEMOGLOBIN (BEAKER) (test code 28.8 pg 25.7-32.2 = 751) MEAN CORPUSCULAR HEMOGLOBIN CONC (BEAKER) (test 32.0 GM/DL 32.3-36.5 code = 752) RED CELL DISTRIBUTION WIDTH (BEAKER) (test code 18.8 % 11.6-14.4 = 412) PLATELET COUNT (BEAKER) (test code = 756) 244 K/CU MM 150-45 0 MEAN PLATELET VOLUME (BEAKER) (test code = 754) 10.6 fL 9.4-12.4 NUCLEATED RED BLOOD CELLS (BEAKER) (test code = 0 /100 WBC 0-0 413) NEUTROPHILS RELATIVE PERCENT (BEAKER) (test code 60 % = 429) LYMPHOCYTES RELATIVE PERCENT (BEAKER) (test code 22 % = 430) MONOCYTES RELATIVE PERCENT (BEAKER) (test code = 13 % 431) EOSINOPHILS RELATIVE PERCENT (BEAKER) (test code 4 % = 432) BASOPHILS RELATIVE PERCENT (BEAKER) (test code = 1 % 437) NEUTROPHILS ABSOLUTE COUNT (BEAKER) (test code = 5.10 K/ L 1.78-5.38 670) LYMPHOCYTES ABSOLUTE COUNT (BEAKER) (test code = 1.84 K/ L 1.32-3.57 414) MONOCYTES ABSOLUTE COUNT (BEAKER) (test code = 1.11 K/ L 0 .30-0.82 415) EOSINOPHILS ABSOLUTE COUNT (BEAKER) (test code = 0.37 K/ L 0.04-0.54 416) BASOPHILS ABSOLUTE COUNT (BEAKER) (test code = 0.04 K/ L 0 .01-0.08 417) IMMATURE GRANULOCYTES-RELATIVE PERCENT (BEAKER) 0 % 0-1 (test code = 2801) POCT-GLUCOSE [id number] 12:28:00 Test Item Value Reference Range Comments POC-GLUCOSE METER (BEAKER) 104 mg/dL 70-110 : HEIDI ANNIE AT [facility] [address] (test code = 1538) [place], [address]: Billing Auditor/Technic juana ID = [id number] for PJ, JON RAD, CHEST, 1 VIEW, NON [id number] 08:05:00Reason for exam:->s/p R VATSShould this be [...] Stable contours. Additional findings: None. Signed: Alicia Garciaeport Verified Date/Time: 04/20/2019 08:05:30 Reading Location: [facility] C013V Neuro Reading Room BASIC METABOLIC PANEL 2019-04-20 05:14:00 Test Item Value Reference Range Comments SODIUM (BEAKER) (test 143 meq/L 136-145 code = 381) POTASSIUM (BEAKER) (test 3.7 meq/L 3.5-5.1 code = 379) CHLORIDE (BEAKER) (test 112 meq/L 98-107 code = 382) CO2 (BEAKER) (test code = 27 meq/L 22-29 355) BLOOD UREA NITROGEN 24 mg/dL 7-21 (BEAKER) (test code = 354) CREATININE (BEAKER) (test 0.70 mg/dL 0.57-1.25 code = 358) GLUCOSE RANDOM (BEAKER) 129 mg/dL 70-105 (test code = 652) CALCIUM (BEAKER) (test 7.4 mg/dL 8.4-10.2 code = 697) EGFR (BEAKER) (test code 114 mL/min/1.73 sq m ES TIMATED GFR IS NOT = 1092) ACCURATE CREA TININE CLEARANCE IN PRE DICTING GLOMERULAR FILTR ATION RATE. ESTIMATED GFR IS NOT APPLICABLE F OR DIALYSIS PATIENT S. Billing Auditor ID - [id number] 04:57:00 Test Item Value Reference Range Comments PHOSPHORUS (BEAKER) (test code = 604) 3.9 mg/dL 2.3-4.7 Billing Auditor ID - [id number] 04:57:00 Test Item Value Reference Range Comments MAGNESIUM (BEAKER) (test code = 627) 2.2 mg/dL 1.6-2.6 Billing Auditor ID - DBCBC W/PLT COUNT & AUTO [id number] 03:45:00 Test Item Value Reference Range Comments WHITE BLOOD CELL COUNT (BEAKER) (test code = 7.0 K/ L 3.5 -10.5 775) RED BLOOD CELL COUNT (BEAKER) (test code = 761) 3.09 M/ L 4.63-6.08 HEMOGLOBIN (BEAKER) (test code = 410) 8.6 GM/DL 13.7-17.5 HEMATOCRIT (BEAKER) (test code = 411) 28.5 % 40.1-51.0 MEAN CORPUSCULAR VOLUME (BEAKER) (test code = 92.2 fL 79 .0-92.2 753) MEAN CORPUSCULAR HEMOGLOBIN (BEAKER) (test code 27.8 pg 25.7-32.2 = 751) MEAN CORPUSCULAR HEMOGLOBIN CONC (BEAKER) (test 30.2 GM/DL 32.3-36.5 code = 752) RED CELL DISTRIBUTION WIDTH (BEAKER) (test code 18.8 % 11.6-14.4 = 412) PLATELET COUNT (BEAKER) (test code = 756) 203 K/CU MM 150-45 0 MEAN PLATELET VOLUME (BEAKER) (test code = 754) 10.7 fL 9.4-12.4 NUCLEATED RED BLOOD CELLS (BEAKER) (test code = 0 /100 WBC 0-0 413) NEUTROPHILS RELATIVE PERCENT (BEAKER) (test code 62 % = 429) LYMPHOCYTES RELATIVE PERCENT (BEAKER) (test code 20 % = 430) MONOCYTES RELATIVE PERCENT (BEAKER) (test code = 12 % 431) EOSINOPHILS RELATIVE PERCENT (BEAKER) (test code 5 % = 432) BASOPHILS RELATIVE PERCENT (BEAKER) (test code = 1 % 437) NEUTROPHILS ABSOLUTE COUNT (BEAKER) (test code = 4.33 K/ L 1.78-5.38 670) LYMPHOCYTES ABSOLUTE COUNT (BEAKER) (test code = 1.43 K/ L 1.32-3.57 414) MONOCYTES ABSOLUTE COUNT (BEAKER) (test code = 0.86 K/ L 0 .30-0.82 415) EOSINOPHILS ABSOLUTE COUNT (BEAKER) (test code = 0.32 K/ L 0.04-0.54 416) BASOPHILS ABSOLUTE COUNT (BEAKER) (test code = 0.04 K/ L 0 .01-0.08 417) IMMATURE GRANULOCYTES-RELATIVE PERCENT (BEAKER) 0 % 0-1 (test code = 2801) POCT-GLUCOSE [id number] 00:19:00 Test Item Value Reference Range Comments POC-GLUCOSE METER (BEAKER) 115 mg/dL 70-110 : [facility] [address] [facility] (test code = 1538[facility] [place], [address]: Billing Auditor/Technic juana ID = [id number] for DANTE, SENORA FUNGUS CULTURE + [id number] 18:47:00 Test Item Value Reference Range Comments CULTURE (BEAKER) (test code = No fungus isolated in 28 days 1095) FUNGUS SMEAR (BEAKER) (test No fungi seen code = 1406) FUNGUS CULTURE + [id number] 18:47:00 Test Item Value Reference Range Comments CULTURE (BEAKER) (test code = No fungus isolated in 28 days 1095) FUNGUS SMEAR (BEAKER) (test No fungi seen code = 1406) FUNGUS CULTURE + [id number] 18:35:00 Test Item Value Reference Range Comments CULTURE (BEAKER) (test code = No fungus isolated in 28 days 1095) FUNGUS SMEAR (BEAKER) (test No fungi seen code = 1406) [id number] 18:02:00 Test Item Value Reference Range Comments PHOSPHORUS (BEAKER) (test code = 604) 1.3 mg/dL 2.3-4.7 Billing Auditor ID - SONIA FBASIC METABOLIC [id number] 17:59:00 Test Item Value Reference Range Comments SODIUM (BEAKER) (test 144 meq/L 136-145 code = 381) POTASSIUM (BEAKER) (test 3.7 meq/L 3.5-5.1 code = 379) CHLORIDE (BEAKER) (test 111 meq/L 98-107 code = 382) CO2 (BEAKER) (test code = 30 meq/L 22-29 355) BLOOD UREA NITROGEN 24 mg/dL 7-21 (BEAKER) (test code = 354) CREATININE (BEAKER) (test 0.71 mg/dL 0.57-1.25 code = 358) GLUCOSE RANDOM (BEAKER) 119 mg/dL 70-105 (test code = 652) CALCIUM (BEAKER) (test 7.8 mg/dL 8.4-10.2 code = 697) EGFR (BEAKER) (test code 112 mL/min/1.73 sq m ES TIMATED GFR IS NOT = 1092) ACCURATE CREA TININE CLEARANCE IN PRE DICTING GLOMERULAR FILTR ATION RATE. ESTIMATED GFR IS NOT APPLICABLE F OR DIALYSIS PATIENT S. Billing Auditor ID - SONIA [id number] 17:58:00 Test Item Value Reference Range Comments MAGNESIUM (BEAKER) (test code = 627) 2.1 mg/dL 1.6-2.6 Billing Auditor ID - SONIA FCBC W/PLT COUNT & AUTO [id number] 17:41:00 Test Item Value Reference Range Comments WHITE BLOOD CELL COUNT (BEAKER) (test code = 8.7 K/ L 3.5 -10.5 775) RED BLOOD CELL COUNT (BEAKER) (test code = 761) 3.36 M/ L 4.63-6.08 HEMOGLOBIN (BEAKER) (test code = 410) 9.7 GM/DL 13.7-17.5 HEMATOCRIT (BEAKER) (test code = 411) 29.9 % 40.1-51.0 MEAN CORPUSCULAR VOLUME (BEAKER) (test code = 89.0 fL 79 .0-92.2 753) MEAN CORPUSCULAR HEMOGLOBIN (BEAKER) (test code 28.9 pg 25.7-32.2 = 751) MEAN CORPUSCULAR HEMOGLOBIN CONC (BEAKER) (test 32.4 GM/DL 32.3-36.5 code = 752) RED CELL DISTRIBUTION WIDTH (BEAKER) (test code 18.6 % 11.6-14.4 = 412) PLATELET COUNT (BEAKER) (test code = 756) 223 K/CU MM 150-45 0 MEAN PLATELET VOLUME (BEAKER) (test code = 754) 10.8 fL 9.4-12.4 NUCLEATED RED BLOOD CELLS (BEAKER) (test code = 0 /100 WBC 0-0 413) NEUTROPHILS RELATIVE PERCENT (BEAKER) (test code 63 % = 429) LYMPHOCYTES RELATIVE PERCENT (BEAKER) (test code 21 % = 430) MONOCYTES RELATIVE PERCENT (BEAKER) (test code = 13 % 431) EOSINOPHILS RELATIVE PERCENT (BEAKER) (test code 2 % = 432) BASOPHILS RELATIVE PERCENT (BEAKER) (test code = 0 % 437) NEUTROPHILS ABSOLUTE COUNT (BEAKER) (test code = 5.48 K/ L 1.78-5.38 670) LYMPHOCYTES ABSOLUTE COUNT (BEAKER) (test code = 1.81 K/ L 1.32-3.57 414) MONOCYTES ABSOLUTE COUNT (BEAKER) (test code = 1.15 K/ L 0 .30-0.82 415) EOSINOPHILS ABSOLUTE COUNT (BEAKER) (test code = 0.19 K/ L 0.04-0.54 416) BASOPHILS ABSOLUTE COUNT (BEAKER) (test code = 0.03 K/ L 0 .01-0.08 417) IMMATURE GRANULOCYTES-RELATIVE PERCENT (BEAKER) 0 % 0-1 (test code = 2801) RAD, CHEST, 1 VIEW, NON [id number] 09:28:00Reason for exam:->s/p R VATSShould this be [...] GarciaMDReport Verified Date/Time: 04/19/2019 09:28:51 Reading Location: [address] Neuro Reading Room BASIC METABOLIC [id number] 04:18:00 Test Item Value Reference Range Comments SODIUM (BEAKER) (test 144 meq/L 136-145 code = 381) POTASSIUM (BEAKER) (test 3.7 meq/L 3.5-5.1 Specime n slightly code = 379) hemolyzed CHLORIDE (BEAKER) (test 111 meq/L 98-107 code = 382) CO2 (BEAKER) (test code = 28 meq/L 22-29 355) BLOOD UREA NITROGEN 26 mg/dL 7-21 (BEAKER) (test code = 354) CREATININE (BEAKER) (test 0.73 mg/dL 0.57-1.25 Specim en slightly code = 358) hemolyzed GLUCOSE RANDOM (BEAKER) 116 mg/dL 70-105 (test code = 652) CALCIUM (BEAKER) (test 7.7 mg/dL 8.4-10.2 code = 697) EGFR (BEAKER) (test code 108 mL/min/1.73 sq m ES TIMATED GFR IS NOT = 1092) ACCURATE CREA TININE CLEARANCE IN PRE DICTING GLOMERULAR FILTR ATION RATE. ESTIMATED GFR IS NOT APPLICABLE F OR DIALYSIS PATIENT S. Billing Auditor ID - ELISSA [id number] 04:16:00 Test Item Value Reference Range Comments MAGNESIUM (BEAKER) (test code = 1.8 mg/dL 1.6-2.6 Specimen slightly hemolyzed 627) Billing Auditor ID - ELISSA [id number] 04:16:00 Test Item Value Reference Range Comments PHOSPHORUS (BEAKER) (test code 1.9 mg/dL 2.3-4.7 S pecimen slightly hemolyzed = 604) Billing Auditor ID - ELISSA MCBC W/PLT COUNT & AUTO [id number] 03:48:00 Test Item Value Reference Range Comments WHITE BLOOD CELL COUNT (BEAKER) (test code = 7.9 K/ L 3.5 -10.5 775) RED BLOOD CELL COUNT (BEAKER) (test code = 761) 3.01 M/ L 4.63-6.08 HEMOGLOBIN (BEAKER) (test code = 410) 8.5 GM/DL 13.7-17.5 HEMATOCRIT (BEAKER) (test code = 411) 26.6 % 40.1-51.0 MEAN CORPUSCULAR VOLUME (BEAKER) (test code = 88.4 fL 79 .0-92.2 753) MEAN CORPUSCULAR HEMOGLOBIN (BEAKER) (test code 28.2 pg 25.7-32.2 = 751) MEAN CORPUSCULAR HEMOGLOBIN CONC (BEAKER) (test 32.0 GM/DL 32.3-36.5 code = 752) RED CELL DISTRIBUTION WIDTH (BEAKER) (test code 18.3 % 11.6-14.4 = 412) PLATELET COUNT (BEAKER) (test code = 756) 196 K/CU MM 150-45 0 MEAN PLATELET VOLUME (BEAKER) (test code = 754) 11.5 fL 9.4-12.4 NUCLEATED RED BLOOD CELLS (BEAKER) (test code = 0 /100 WBC 0-0 413) NEUTROPHILS RELATIVE PERCENT (BEAKER) (test code 67 % = 429) LYMPHOCYTES RELATIVE PERCENT (BEAKER) (test code 18 % = 430) MONOCYTES RELATIVE PERCENT (BEAKER) (test code = 12 % 431) EOSINOPHILS RELATIVE PERCENT (BEAKER) (test code 3 % = 432) BASOPHILS RELATIVE PERCENT (BEAKER) (test code = 0 % 437) NEUTROPHILS ABSOLUTE COUNT (BEAKER) (test code = 5.32 K/ L 1.78-5.38 670) LYMPHOCYTES ABSOLUTE COUNT (BEAKER) (test code = 1.39 K/ L 1.32-3.57 414) MONOCYTES ABSOLUTE COUNT (BEAKER) (test code = 0.97 K/ L 0 .30-0.82 415) EOSINOPHILS ABSOLUTE COUNT (BEAKER) (test code = 0.21 K/ L 0.04-0.54 416) BASOPHILS ABSOLUTE COUNT (BEAKER) (test code = 0.03 K/ L 0 .01-0.08 417) IMMATURE GRANULOCYTES-RELATIVE PERCENT (BEAKER) 0 % 0-1 (test code = 2801) POCT-GLUCOSE [id number] 00:35:00 Test Item Value Reference Range Comments POC-GLUCOSE METER (BEAKER) 104 mg/dL 70-110 : HEIDI ANNIE AT [facility] [address], [place] (test code = 1538) [facility], [address]: Billing Auditor/Technic juana ID = [id number] for MESATANESHAORRTANNA BASIC METABOLIC [id number] 19:39:00 Test Item Value Reference Range Comments SODIUM (BEAKER) (test 142 meq/L 136-145 code = 381) POTASSIUM (BEAKER) (test 3.6 meq/L 3.5-5.1 code = 379) CHLORIDE (BEAKER) (test 111 meq/L 98-107 code = 382) CO2 (BEAKER) (test code = 26 meq/L 22-29 355) BLOOD UREA NITROGEN 28 mg/dL 7-21 (BEAKER) (test code = 354) CREATININE (BEAKER) (test 0.74 mg/dL 0.57-1.25 code = 358) GLUCOSE RANDOM (BEAKER) 112 mg/dL 70-105 (test code = 652) CALCIUM (BEAKER) (test 7.7 mg/dL 8.4-10.2 code = 697) EGFR (BEAKER) (test code 106 mL/min/1.73 sq m ES TIMATED GFR IS NOT = 1092) ACCURATE CREA TININE CLEARANCE IN PRE DICTING GLOMERULAR FILTR ATION RATE. ESTIMATED GFR IS NOT APPLICABLE F OR DIALYSIS PATIENT S. Billing Auditor ID - [id number] 19:37:00 Test Item Value Reference Range Comments PHOSPHORUS (BEAKER) (test code = 604) 1.8 mg/dL 2.3-4.7 Billing Auditor ID - [id number] 19:37:00 Test Item Value Reference Range Comments MAGNESIUM (BEAKER) (test code = 627) 1.8 mg/dL 1.6-2.6 Billing Auditor ID - DBPOCT-GLUCOSE [id number] 18:39:00 Test Item Value Reference Range Comments POC-GLUCOSE METER (BEAKER) 115 mg/dL 70-110 : Not ified RN/MD: TESTED AT (test code = 1538) [facility] [address] [facility], [address]: Billing Auditor/ Research Intern ID = [id number] for Simmo ns, Renetta CBC W/PLT COUNT & AUTO [id number] 18:15:00 Test Item Value Reference Range Comments WHITE BLOOD CELL COUNT (BEAKER) (test code = 8.7 K/ L 3.5 -10.5 775) RED BLOOD CELL COUNT (BEAKER) (test code = 761) 3.07 M/ L 4.63-6.08 HEMOGLOBIN (BEAKER) (test code = 410) 8.6 GM/DL 13.7-17.5 HEMATOCRIT (BEAKER) (test code = 411) 27.2 % 40.1-51.0 MEAN CORPUSCULAR VOLUME (BEAKER) (test code = 88.6 fL 79 .0-92.2 753) MEAN CORPUSCULAR HEMOGLOBIN (BEAKER) (test code 28.0 pg 25.7-32.2 = 751) MEAN CORPUSCULAR HEMOGLOBIN CONC (BEAKER) (test 31.6 GM/DL 32.3-36.5 code = 752) RED CELL DISTRIBUTION WIDTH (BEAKER) (test code 18.0 % 11.6-14.4 = 412) PLATELET COUNT (BEAKER) (test code = 756) 170 K/CU MM 150-45 0 MEAN PLATELET VOLUME (BEAKER) (test code = 754) 10.9 fL 9.4-12.4 NUCLEATED RED BLOOD CELLS (BEAKER) (test code = 0 /100 WBC 0-0 413) NEUTROPHILS RELATIVE PERCENT (BEAKER) (test code 70 % = 429) LYMPHOCYTES RELATIVE PERCENT (BEAKER) (test code 17 % = 430) MONOCYTES RELATIVE PERCENT (BEAKER) (test code = 12 % 431) EOSINOPHILS RELATIVE PERCENT (BEAKER) (test code 2 % = 432) BASOPHILS RELATIVE PERCENT (BEAKER) (test code = 0 % 437) NEUTROPHILS ABSOLUTE COUNT (BEAKER) (test code = 6.07 K/ L 1.78-5.38 670) LYMPHOCYTES ABSOLUTE COUNT (BEAKER) (test code = 1.43 K/ L 1.32-3.57 414) MONOCYTES ABSOLUTE COUNT (BEAKER) (test code = 1.00 K/ L 0 .30-0.82 415) EOSINOPHILS ABSOLUTE COUNT (BEAKER) (test code = 0.13 K/ L 0.04-0.54 416) BASOPHILS ABSOLUTE COUNT (BEAKER) (test code = 0.02 K/ L 0 .01-0.08 417) IMMATURE GRANULOCYTES-RELATIVE PERCENT (BEAKER) 1 % 0-1 (test code = 2801) SURGICALLY OBTAINED CULTURE + GRAM [id number] 16:40:00 Test Item Value Reference Range Comments CULTURE (BEAKER) (test code = 1095) No growth GRAM STAIN RESULT (BEAKER) (test code = 1+ WBCs 1123) GRAM STAIN RESULT (BEAKER) (test code = No organisms seen 54286) SURGICALLY OBTAINED CULTURE + GRAM [id number] 16:40:00 Test Item Value Reference Range Comments CULTURE (BEAKER) (test code = 1095) No growth GRAM STAIN RESULT (BEAKER) (test code = 1+ WBCs 1123) GRAM STAIN RESULT (BEAKER) (test code = No organisms seen 82093) SURGICALLY OBTAINED CULTURE + GRAM [id number] 16:40:00 Test Item Value Reference Range Comments CULTURE (BEAKER) (test code = 1095) No growth GRAM STAIN RESULT (BEAKER) (test code = 1+ WBCs 1123) GRAM STAIN RESULT (BEAKER) (test code = No organisms seen 70734) SURGICALLY OBTAINED CULTURE + GRAM [id number] 16:40:00 Test Item Value Reference Range Comments CULTURE (BEAKER) (test code = 1095) No growth GRAM STAIN RESULT (BEAKER) (test code = 1+ WBCs 1123) GRAM STAIN RESULT (BEAKER) (test code = No organisms seen 03284) SURGICALLY OBTAINED CULTURE + GRAM [id number] 16:40:00 Test Item Value Reference Range Comments CULTURE (BEAKER) (test code = 1095) No growth GRAM STAIN RESULT (BEAKER) (test code = 1+ WBCs 1123) GRAM STAIN RESULT (BEAKER) (test code = No organisms seen 79431) POCT-GLUCOSE [id number] 11:57:00 Test Item Value Reference Range Comments POC-GLUCOSE METER (BEAKER) 126 mg/dL 70-110 : Not ified RN/MD: TESTED AT (test code = 1538) [facility] [address] [facility], [address]: Billing Auditor/ Research Intern ID = [id number] for Keaton cordero, Renetta RAD, CHEST, 1 VIEW, NON [id number] 10:13:00Reason for exam:->s/p R VATSShould this be performed at the bedside?->YesFINAL REPORT CLINICAL HISTORY: s/p R VATS TECHNIQUE: 1 view of the chest. COMP ARISON: 04/17/2019 IMPRESSION: The ETT and three right-sided chest tubes appear unchanged position. There is no pneumothorax. Right hemithorax pleural- parenchymal opacity is unchanged. Left lung base opacity and a small left pleural effusion are also unchanged. The cardiomediastinal silhouette is magnif ied by technique with sternotomy wires. Signed: Jenny Rosado MDReport Verified Date/Time: 04/18/2019 10:13:43 Reading Location: [facility] Radiology Reading Room POCT-GLUCOSE [id number] 06:07:00 Test Item Value Reference Range Comments POC-GLUCOSE METER (BEAKER) 136 mg/dL 70-110 : HEIDI JACOBS AT [facility] [address] (test code = 1538) [place], [address]: Billing Auditor/Technic juana ID = [id number] for Chris Gifford BASIC METABOLIC [id number] 03:23:00 Test Item Value Reference Range Comments SODIUM (BEAKER) (test 140 meq/L 136-145 code = 381) POTASSIUM (BEAKER) (test 4.1 meq/L 3.5-5.1 code = 379) CHLORIDE (BEAKER) (test 112 meq/L 98-107 code = 382) CO2 (BEAKER) (test code = 23 meq/L 22-29 355) BLOOD UREA NITROGEN 31 mg/dL 7-21 (BEAKER) (test code = 354) CREATININE (BEAKER) (test 0.92 mg/dL 0.57-1.25 code = 358) GLUCOSE RANDOM (BEAKER) 136 mg/dL 70-105 (test code = 652) CALCIUM (BEAKER) (test 7.6 mg/dL 8.4-10.2 code = 697) EGFR (BEAKER) (test code 83 mL/min/1.73 sq m EST IMATED GFR IS NOT = 1092) ACCURATE CREA TININE CLEARANCE IN PRE DICTING GLOMERULAR FILTR ATION RATE. ESTIMATED GFR IS NOT APPLICABLE F OR DIALYSIS PATIENT S. Billing Auditor ID - ELISSA [id number] 03:09:00 Test Item Value Reference Range Comments PHOSPHORUS (BEAKER) (test code = 604) 2.9 mg/dL 2.3-4.7 Billing Auditor ID - ELISSA [id number] 03:09:00 Test Item Value Reference Range Comments MAGNESIUM (BEAKER) (test code = 627) 2.0 mg/dL 1.6-2.6 Billing Auditor ID - ELISSA MBLOOD GAS, [id number] 02:53:00 Test Item Value Reference Range Comments PH ARTERIAL (BEAKER) (test code = 383) 7.43 7.35-7.45 PCO2 ARTERIAL (BEAKER) (test code = 384) 39 mmHg 35-45 PO2 ARTERIAL (BEAKER) (test code = 385) 165 mmHg 80-90 O2 SATURATION ARTERIAL (BEAKER) (test code = 386) 99.1 % 96.0-97.0 HCO3 ARTERIAL (BEAKER) (test code = 388) 25 mmol/L 21-29 BASE EXCESS ARTERIAL (BEAKER) (test code = 387) 0.6 mmol/L -2.0-3.0 PATIENT TEMPERATURE (BEAKER) (test code = 1818) 37.2 C FIO2 (BEAKER) (test code = 1819) 40.0 % CBC W/PLT COUNT & AUTO [id number] 02:51:00 Test Item Value Reference Range Comments WHITE BLOOD CELL COUNT (BEAKER) (test code = 7.5 K/ L 3.5 -10.5 775) RED BLOOD CELL COUNT (BEAKER) (test code = 761) 2.78 M/ L 4.63-6.08 HEMOGLOBIN (BEAKER) (test code = 410) 8.0 GM/DL 13.7-17.5 HEMATOCRIT (BEAKER) (test code = 411) 24.8 % 40.1-51.0 MEAN CORPUSCULAR VOLUME (BEAKER) (test code = 89.2 fL 79 .0-92.2 753) MEAN CORPUSCULAR HEMOGLOBIN (BEAKER) (test code 28.8 pg 25.7-32.2 = 751) MEAN CORPUSCULAR HEMOGLOBIN CONC (BEAKER) (test 32.3 GM/DL 32.3-36.5 code = 752) RED CELL DISTRIBUTION WIDTH (BEAKER) (test code 18.1 % 11.6-14.4 = 412) PLATELET COUNT (BEAKER) (test code = 756) 125 K/CU MM 150-45 0 MEAN PLATELET VOLUME (BEAKER) (test code = 754) 11.9 fL 9.4-12.4 NUCLEATED RED BLOOD CELLS (BEAKER) (test code = 0 /100 WBC 0-0 413) NEUTROPHILS RELATIVE PERCENT (BEAKER) (test code 64 % = 429) LYMPHOCYTES RELATIVE PERCENT (BEAKER) (test code 21 % = 430) MONOCYTES RELATIVE PERCENT (BEAKER) (test code = 11 % 431) EOSINOPHILS RELATIVE PERCENT (BEAKER) (test code 4 % = 432) BASOPHILS RELATIVE PERCENT (BEAKER) (test code = 0 % 437) NEUTROPHILS ABSOLUTE COUNT (BEAKER) (test code = 4.79 K/ L 1.78-5.38 670) LYMPHOCYTES ABSOLUTE COUNT (BEAKER) (test code = 1.53 K/ L 1.32-3.57 414) MONOCYTES ABSOLUTE COUNT (BEAKER) (test code = 0.84 K/ L 0 .30-0.82 415) EOSINOPHILS ABSOLUTE COUNT (BEAKER) (test code = 0.27 K/ L 0.04-0.54 416) BASOPHILS ABSOLUTE COUNT (BEAKER) (test code = 0.02 K/ L 0 .01-0.08 417) IMMATURE GRANULOCYTES-RELATIVE PERCENT (BEAKER) 0 % 0-1 (test code = 2801) POCT-GLUCOSE [id number] 00:31:00 Test Item Value Reference Range Comments POC-GLUCOSE METER (BEAKER) 121 mg/dL 70-110 : HEIDI JACOBS AT [address] (test code = 1538) [facility], [address]: Billing Auditor/Technic juana ID = [id number] for CLARKE FRAIRE POCT-GLUCOSE [id number] 18:46:00 Test Item Value Reference Range Comments POC-GLUCOSE METER (BEAKER) 114 mg/dL 70-110 : HEIDI ANNIE AT [address] (test code = 1538) [facility], [address]: Billing Auditor/Technic juana ID = [id number] for DRU BONILLA BASIC METABOLIC [id number] 17:17:00 Test Item Value Reference Range Comments SODIUM (BEAKER) (test 138 meq/L 136-145 code = 381) POTASSIUM (BEAKER) (test 4.1 meq/L 3.5-5.1 code = 379) CHLORIDE (BEAKER) (test 111 meq/L 98-107 code = 382) CO2 (BEAKER) (test code = 24 meq/L 22-29 355) BLOOD UREA NITROGEN 33 mg/dL 7-21 (BEAKER) (test code = 354) CREATININE (BEAKER) (test 1.02 mg/dL 0.57-1.25 code = 358) GLUCOSE RANDOM (BEAKER) 104 mg/dL 70-105 (test code = 652) CALCIUM (BEAKER) (test 7.7 mg/dL 8.4-10.2 code = 697) EGFR (BEAKER) (test code 74 mL/min/1.73 sq m EST IMATED GFR IS NOT = 1092) ACCURATE CREA TININE CLEARANCE IN PRE DICTING GLOMERULAR FILTR ATION RATE. ESTIMATED GFR IS NOT APPLICABLE F OR DIALYSIS PATIENT S. Billing Auditor ID - BSSpecimen slightly [id number] 17:14:00 Test Item Value Reference Range Comments PHOSPHORUS (BEAKER) (test code = 604) 4.2 mg/dL 2.3-4.7 Billing Auditor ID - [id number] 17:14:00 Test Item Value Reference Range Comments MAGNESIUM (BEAKER) (test code = 627) 2.1 mg/dL 1.6-2.6 Billing Auditor ID - BSCBC W/PLT COUNT & AUTO [id number] 16:29:00 Test Item Value Reference Range Comments WHITE BLOOD CELL COUNT (BEAKER) (test code = 7.9 K/ L 3.5 -10.5 775) RED BLOOD CELL COUNT (BEAKER) (test code = 761) 2.96 M/ L 4.63-6.08 HEMOGLOBIN (BEAKER) (test code = 410) 8.4 GM/DL 13.7-17.5 HEMATOCRIT (BEAKER) (test code = 411) 26.2 % 40.1-51.0 MEAN CORPUSCULAR VOLUME (BEAKER) (test code = 88.5 fL 79 .0-92.2 753) MEAN CORPUSCULAR HEMOGLOBIN (BEAKER) (test code 28.4 pg 25.7-32.2 = 751) MEAN CORPUSCULAR HEMOGLOBIN CONC (BEAKER) (test 32.1 GM/DL 32.3-36.5 code = 752) RED CELL DISTRIBUTION WIDTH (BEAKER) (test code 17.8 % 11.6-14.4 = 412) PLATELET COUNT (BEAKER) (test code = 756) 121 K/CU MM 150-45 0 MEAN PLATELET VOLUME (BEAKER) (test code = 754) 11.0 fL 9.4-12.4 NUCLEATED RED BLOOD CELLS (BEAKER) (test code = 0 /100 WBC 0-0 413) NEUTROPHILS RELATIVE PERCENT (BEAKER) (test code 68 % = 429) LYMPHOCYTES RELATIVE PERCENT (BEAKER) (test code 18 % = 430) MONOCYTES RELATIVE PERCENT (BEAKER) (test code = 10 % 431) EOSINOPHILS RELATIVE PERCENT (BEAKER) (test code 4 % = 432) BASOPHILS RELATIVE PERCENT (BEAKER) (test code = 0 % 437) NEUTROPHILS ABSOLUTE COUNT (BEAKER) (test code = 5.37 K/ L 1.78-5.38 670) LYMPHOCYTES ABSOLUTE COUNT (BEAKER) (test code = 1.39 K/ L 1.32-3.57 414) MONOCYTES ABSOLUTE COUNT (BEAKER) (test code = 0.81 K/ L 0 .30-0.82 415) EOSINOPHILS ABSOLUTE COUNT (BEAKER) (test code = 0.29 K/ L 0.04-0.54 416) BASOPHILS ABSOLUTE COUNT (BEAKER) (test code = 0.01 K/ L 0 .01-0.08 417) IMMATURE GRANULOCYTES-RELATIVE PERCENT (BEAKER) 0 % 0-1 (test code = 2801) BLOOD GAS, [id number] 16:23:00 Test Item Value Reference Range Comments PH ARTERIAL (BEAKER) (test code = 383) 7.41 7.35-7.45 PCO2 ARTERIAL (BEAKER) (test code = 384) 41 mmHg 35-45 PO2 ARTERIAL (BEAKER) (test code = 385) 174 mmHg 80-90 O2 SATURATION ARTERIAL (BEAKER) (test code = 386) 99.2 % 96.0-97.0 HCO3 ARTERIAL (BEAKER) (test code = 388) 25 mmol/L 21-29 BASE EXCESS ARTERIAL (BEAKER) (test code = 387) 0.4 mmol/L -2.0-3.0 PATIENT TEMPERATURE (BEAKER) (test code = 1818) 37.0 C FIO2 (BEAKER) (test code = 1819) 40.0 % POCT-GLUCOSE [id number] 13:26:00 Test Item Value Reference Range Comments POC-GLUCOSE METER (BEAKER) 94 mg/dL 70-110 : HEIDI ANNIE AT [facility] [address] (test code = 1538) [place], [address]: Billing Auditor/Technic juana ID = [id number] for JOSIAH RODRIGUEZ SA BRONCHIAL CULTURE + GRAM [id number] 11:54:00 Test Item Value Reference Range Comments CULTURE (BEAKER) (test code = 1095) No growth GRAM STAIN RESULT (BEAKER) (test code = 1+ WBCs 1123) GRAM STAIN RESULT (BEAKER) (test code = No organisms seen 05397) TISSUE [id number] 11:43:00Surgical Pathology Report Case: [id number] Authorizing Provider: Fernando Andrews MD Collected: 04/14/2019 1654 Ordering Location: [facility] Received: 04/15/2019 0933 PERIOPERATIVE SERVICES Pathologist: Gay [...] PLEURITIS WITH FOCAL ACUTE INFLAMMATION. - LUNG P ARENCHYMA WITH FEATURES OF ORGANIZING PNEUMONIA. - NEGATIVE FOR MALIGNANCYC. LUNG, RIGHT MIDDLE LOBE, DECORTICATION: - CHRONIC FIBROSING PLEURITIS. - NEGATIVE FOR MALIGNANCY.D. LUNG, RIGHT UPPER LOBE, DECORTICATION: - CHRONIC FIBROSING PLEURITIS. - NEGATIVE FOR MALIGNANCY. - LUNG PARENCHYMA WITH NO SIGNIFICANT DIAGNOSTIC ALTERATION. Signing Pathologist Direct Phone Line: [phone] signed by Gay Puentes MD on 04/17/2019 at 11:43 [id number] X 4Empyema, right.A. Pleura. B. Lung, right [...] patient's name, accession number and "right upper lob e" is a 2.3 x 0.7 x 0.2 cm devlin-pink fibromembranous tissue, which is entirely submitted in D1. PA/ewPerformed.[facility], Department of Pathology, [address] [place] [address], [facility], [facility], [address] [place] [address], [facility], [facility] of [facility], [address] [place] [address], YHL, CHEST, 1 VIEW, NON [id number] 10:13:00Reason for exam:->s/p R VATSShould this be performed at the bedside?->YesFINAL REPORT History: Status post VATS Comparison: 04/16/2019 Findings: Right-sided chest tube remain in place, without evidence of a pneumothorax. Small right pleural effusion ve rsus mild pleural reaction. There is persistent atelectasis in the lower right lung. There is mild interstitial pulmonary edema bilaterally. Minimal left pleural effusion. The cardiac shadow is partially obscured. Endotracheal tube tip is 5 cm proximal to the shruthi. Signed: Fredi Lucas MDReport Verified Date/Time: 04/17/2019 10:13:50 Reading Location: [facility] Radiology Reading Room POCT- GLUCOSE [id number] 05:44:00 Test Item Value Reference Range Comments POC-GLUCOSE METER (BEAKER) 99 mg/dL 70-110 : HEIDI ANNIE AT [address] (test code = 1538) [facility], [address]: Billing Auditor/Technic juana ID = [id number] for ARHUNMWUNDE, OSAZE BASIC METABOLIC [id number] 04:57:00 Test Item Value Reference Range Comments SODIUM (BEAKER) (test 138 meq/L 136-145 code = 381) POTASSIUM (BEAKER) (test 4.4 meq/L 3.5-5.1 code = 379) CHLORIDE (BEAKER) (test 112 meq/L 98-107 code = 382) CO2 (BEAKER) (test code = 21 meq/L 22-29 355) BLOOD UREA NITROGEN 33 mg/dL 7-21 (BEAKER) (test code = 354) CREATININE (BEAKER) (test 1.12 mg/dL 0.57-1.25 code = 358) GLUCOSE RANDOM (BEAKER) 98 mg/dL 70-105 (test code = 652) CALCIUM (BEAKER) (test 7.4 mg/dL 8.4-10.2 code = 697) EGFR (BEAKER) (test code 66 mL/min/1.73 sq m EST IMATED GFR IS NOT = 1092) ACCURATE CREA TININE CLEARANCE IN PRE DICTING GLOMERULAR FILTR ATION RATE. ESTIMATED GFR IS NOT APPLICABLE F OR DIALYSIS PATIENT S. Billing Auditor ID - [id number] 04:36:00 Test Item Value Reference Range Comments PHOSPHORUS (BEAKER) (test code = 604) 3.8 mg/dL 2.3-4.7 Billing Auditor ID - [id number] 04:36:00 Test Item Value Reference Range Comments MAGNESIUM (BEAKER) (test code = 627) 2.3 mg/dL 1.6-2.6 Billing Auditor ID - [id number] 04:08:00 Test Item Value Reference Range Comments PARTIAL THROMBOPLASTIN TIME (BEAKER) (test code 41.6 seconds 22.5-36.0 = 760) PROTHROMBIN TIME/[id number] 04:07:00 Test Item Value Reference Range Comments PROTIME (BEAKER) (test code = 759) 18.0 seconds 11.9-14.2 INR (BEAKER) (test code = 370) 1.5 <=5.9 Effective 07/24/2018: PT Reference Range ChangeNew: 11.9-14.2 Previous: 11.7- 14.7RECOMMENDED COUMADIN/WARFARIN INR THERAPY RANGESSTANDARD DOSE: 2.0-3.0 Includes: PROPHYLAXIS for venous thrombosis, systemic embolization; TREATMENT for venous thrombosis and/or pulmonary embolus.HIGH RISK: Target INR is2.5-3.5 for patients wiht mechanical heart valves.BLOOD GAS, [id number] 04:02:00 Test Item Value Reference Range Comments PH ARTERIAL (BEAKER) (test code = 383) 7.53 7.35-7.45 PCO2 ARTERIAL (BEAKER) (test code = 384) 30 mmHg 35-45 PO2 ARTERIAL (BEAKER) (test code = 385) 183 mmHg 80-90 O2 SATURATION ARTERIAL (BEAKER) (test code = 386) 99.4 % 96.0-97.0 HCO3 ARTERIAL (BEAKER) (test code = 388) 24 mmol/L 21-29 BASE EXCESS ARTERIAL (BEAKER) (test code = 387) 1.5 mmol/L -2.0-3.0 PATIENT TEMPERATURE (BEAKER) (test code = 1818) 37.0 C FIO2 (BEAKER) (test code = 1819) 40.0 % CBC W/PLT COUNT & AUTO [id number] 03:56:00 Test Item Value Reference Range Comments WHITE BLOOD CELL COUNT (BEAKER) (test code = 8.0 K/ L 3.5 -10.5 775) RED BLOOD CELL COUNT (BEAKER) (test code = 761) 2.56 M/ L 4.63-6.08 HEMOGLOBIN (BEAKER) (test code = 410) 7.2 GM/DL 13.7-17.5 HEMATOCRIT (BEAKER) (test code = 411) 22.4 % 40.1-51.0 MEAN CORPUSCULAR VOLUME (BEAKER) (test code = 87.5 fL 79 .0-92.2 753) MEAN CORPUSCULAR HEMOGLOBIN (BEAKER) (test code 28.1 pg 25.7-32.2 = 751) MEAN CORPUSCULAR HEMOGLOBIN CONC (BEAKER) (test 32.1 GM/DL 32.3-36.5 code = 752) RED CELL DISTRIBUTION WIDTH (BEAKER) (test code 18.2 % 11.6-14.4 = 412) PLATELET COUNT (BEAKER) (test code = 756) 113 K/CU MM 150-45 0 MEAN PLATELET VOLUME (BEAKER) (test code = 754) 11.4 fL 9.4-12.4 NUCLEATED RED BLOOD CELLS (BEAKER) (test code = 0 /100 WBC 0-0 413) NEUTROPHILS RELATIVE PERCENT (BEAKER) (test code 65 % = 429) LYMPHOCYTES RELATIVE PERCENT (BEAKER) (test code 20 % = 430) MONOCYTES RELATIVE PERCENT (BEAKER) (test code = 11 % 431) EOSINOPHILS RELATIVE PERCENT (BEAKER) (test code 4 % = 432) BASOPHILS RELATIVE PERCENT (BEAKER) (test code = 0 % 437) NEUTROPHILS ABSOLUTE COUNT (BEAKER) (test code = 5.21 K/ L 1.78-5.38 670) LYMPHOCYTES ABSOLUTE COUNT (BEAKER) (test code = 1.59 K/ L 1.32-3.57 414) MONOCYTES ABSOLUTE COUNT (BEAKER) (test code = 0.91 K/ L 0 .30-0.82 415) EOSINOPHILS ABSOLUTE COUNT (BEAKER) (test code = 0.28 K/ L 0.04-0.54 416) BASOPHILS ABSOLUTE COUNT (BEAKER) (test code = 0.02 K/ L 0 .01-0.08 417) IMMATURE GRANULOCYTES-RELATIVE PERCENT (BEAKER) 0 % 0-1 (test code = 2801) HEMOGLOBIN AND [id number] 00:46:00 Test Item Value Reference Range Comments HEMOGLOBIN (BEAKER) (test code = 410) 7.7 GM/DL 13.7-17.5 HEMATOCRIT (BEAKER) (test code = 411) 23.6 % 40.1-51.0 Billing Auditor ID - [id number]-GLUCOSE [id number] 00:22:00 Test Item Value Reference Range Comments POC-GLUCOSE METER (BEAKER) 98 mg/dL 70-110 : HEIDI ANNIE AT [address] (test code = 1538) [facility], [facility] 30: Billing Auditor/Technic juana ID = [id number] for SANDRA WILSON POCT-GLUCOSE [id number] 19:03:00 Test Item Value Reference Range Comments POC-GLUCOSE METER (BEAKER) 93 mg/dL 70-110 : HEIDI ANNIE AT [place] [id number] [facility] [place] (test code = 1538) [facility], [facility] 30: Billing Auditor/Technic juana ID = [id number] for DRU BONILLA BASIC METABOLIC [id number] 17:08:00 Test Item Value Reference Range Comments SODIUM (BEAKER) (test 139 meq/L 136-145 code = 381) POTASSIUM (BEAKER) (test 4.9 meq/L 3.5-5.1 Specime n slightly code = 379) hemolyzed CHLORIDE (BEAKER) (test 113 meq/L 98-107 code = 382) CO2 (BEAKER) (test code = 23 meq/L 22-29 355) BLOOD UREA NITROGEN 31 mg/dL 7-21 (BEAKER) (test code = 354) CREATININE (BEAKER) (test 1.21 mg/dL 0.57-1.25 Specim en slightly code = 358) hemolyzed GLUCOSE RANDOM (BEAKER) 96 mg/dL 70-105 (test code = 652) CALCIUM (BEAKER) (test 7.7 mg/dL 8.4-10.2 code = 697) EGFR (BEAKER) (test code 60 mL/min/1.73 sq m EST IMATED GFR IS NOT = 1092) ACCURATE CREA TININE CLEARANCE IN PRE DICTING GLOMERULAR FILTR ATION RATE. ESTIMATED GFR IS NOT APPLICABLE F OR DIALYSIS PATIENT S. Billing Auditor ID - [id number] 17:06:00 Test Item Value Reference Range Comments PHOSPHORUS (BEAKER) (test code 4.5 mg/dL 2.3-4.7 S pecimen slightly hemolyzed = 604) Billing Auditor ID - BSCBC W/PLT COUNT & AUTO [id number] 16:39:00 Test Item Value Reference Range Comments WHITE BLOOD CELL COUNT (BEAKER) (test code = 9.5 K/ L 3.5 -10.5 775) RED BLOOD CELL COUNT (BEAKER) (test code = 761) 2.78 M/ L 4.63-6.08 HEMOGLOBIN (BEAKER) (test code = 410) 7.9 GM/DL 13.7-17.5 HEMATOCRIT (BEAKER) (test code = 411) 23.8 % 40.1-51.0 MEAN CORPUSCULAR VOLUME (BEAKER) (test code = 85.6 fL 79 .0-92.2 753) MEAN CORPUSCULAR HEMOGLOBIN (BEAKER) (test code 28.4 pg 25.7-32.2 = 751) MEAN CORPUSCULAR HEMOGLOBIN CONC (BEAKER) (test 33.2 GM/DL 32.3-36.5 code = 752) RED CELL DISTRIBUTION WIDTH (BEAKER) (test code 17.8 % 11.6-14.4 = 412) PLATELET COUNT (BEAKER) (test code = 756) 133 K/CU MM 150-45 0 MEAN PLATELET VOLUME (BEAKER) (test code = 754) 11.9 fL 9.4-12.4 NUCLEATED RED BLOOD CELLS (BEAKER) (test code = 0 /100 WBC 0-0 413) NEUTROPHILS RELATIVE PERCENT (BEAKER) (test code 66 % = 429) LYMPHOCYTES RELATIVE PERCENT (BEAKER) (test code 18 % = 430) MONOCYTES RELATIVE PERCENT (BEAKER) (test code = 13 % 431) EOSINOPHILS RELATIVE PERCENT (BEAKER) (test code 3 % = 432) BASOPHILS RELATIVE PERCENT (BEAKER) (test code = 0 % 437) NEUTROPHILS ABSOLUTE COUNT (BEAKER) (test code = 6.31 K/ L 1.78-5.38 670) LYMPHOCYTES ABSOLUTE COUNT (BEAKER) (test code = 1.66 K/ L 1.32-3.57 414) MONOCYTES ABSOLUTE COUNT (BEAKER) (test code = 1.20 K/ L 0 .30-0.82 415) EOSINOPHILS ABSOLUTE COUNT (BEAKER) (test code = 0.26 K/ L 0.04-0.54 416) BASOPHILS ABSOLUTE COUNT (BEAKER) (test code = 0.03 K/ L 0 .01-0.08 417) IMMATURE GRANULOCYTES-RELATIVE PERCENT (BEAKER) 1 % 0-1 (test code = 2801) BLOOD GAS, [id number] 16:16:00 Test Item Value Reference Range Comments PH ARTERIAL (BEAKER) (test code = 383) 7.44 7.35-7.45 PCO2 ARTERIAL (BEAKER) (test code = 384) 35 mmHg 35-45 PO2 ARTERIAL (BEAKER) (test code = 385) 182 mmHg 80-90 O2 SATURATION ARTERIAL (BEAKER) (test code = 99.3 % 96. 0-97.0 386) HCO3 ARTERIAL (BEAKER) (test code = 388) 24 mmol/L 21-29 BASE EXCESS ARTERIAL (BEAKER) (test code = 387) -0.3 mmol/L -2.0-3.0 PATIENT TEMPERATURE (BEAKER) (test code = 1818) 37.0 C FIO2 (BEAKER) (test code = 1819) 40.0 % POCT-GLUCOSE [id number] 13:36:00 Test Item Value Reference Range Comments POC-GLUCOSE METER (BEAKER) 93 mg/dL 70-110 : HEIDI ANNIE AT [facility] [id number] (test code = 1538) [place] [place], [address]: Billing Auditor/Technic juana ID = [id number] for MARISOL BRITT HEMOGLOBIN AND [id number] 09:42:00 Test Item Value Reference Range Comments HEMOGLOBIN (BEAKER) (test code = 410) 8.0 GM/DL 13.7-17.5 HEMATOCRIT (BEAKER) (test code = 411) 24.1 % 40.1-51.0 Billing Auditor ID - [id number], CHEST, 1 VIEW, NON [id number] 06:37:00Reason for exam:->s/p R VATSShould this be performed at the bedside?->YesFINAL REPORT CLINICAL INDICATION: Postop Comparison: 04/15/2019 1353 hours The cardiomediastinal contours are stable. Central pulmonary vascular prominence and right greater thanleft parenchymal and pleural opacities are unchanged. There is no pneumothorax. Support lines are stable. Signed: Reji Tyler MDReport Verified Date/Time: 04/16/2019 06:37:16 Electronically sig lalita by: REJI TYLER M.D. on 04/16/2019 06:37 AMBASIC METABOLIC PANEL 2019-04-16 04:45:00 Test Item Value Reference Range Comments SODIUM (BEAKER) (test 139 meq/L 136-145 code = 381) POTASSIUM (BEAKER) (test 5.0 meq/L 3.5-5.1 code = 379) CHLORIDE (BEAKER) (test 112 meq/L 98-107 code = 382) CO2 (BEAKER) (test code = 21 meq/L 22-29 355) BLOOD UREA NITROGEN 25 mg/dL 7-21 (BEAKER) (test code = 354) CREATININE (BEAKER) (test 1.19 mg/dL 0.57-1.25 code = 358) GLUCOSE RANDOM (BEAKER) 119 mg/dL 70-105 (test code = 652) CALCIUM (BEAKER) (test 7.5 mg/dL 8.4-10.2 code = 697) EGFR (BEAKER) (test code 62 mL/min/1.73 sq m EST IMATED GFR IS NOT = 1092) ACCURATE CREA TININE CLEARANCE IN PRE DICTING GLOMERULAR FILTR ATION RATE. ESTIMATED GFR IS NOT APPLICABLE F OR DIALYSIS PATIENT S. Billing Auditor ID - DBSpecimen slightly [id number] 04:26:00 Test Item Value Reference Range Comments PHOSPHORUS (BEAKER) (test code = 604) 5.1 mg/dL 2.3-4.7 Billing Auditor ID - [id number] 04:26:00 Test Item Value Reference Range Comments MAGNESIUM (BEAKER) (test code = 627) 2.2 mg/dL 1.6-2.6 Billing Auditor ID - [id number] 04:09:00 Test Item Value Reference Range Comments PARTIAL THROMBOPLASTIN TIME (BEAKER) (test code 35.4 seconds 22.5-36.0 = 760) PROTHROMBIN TIME/[id number] 04:08:00 Test Item Value Reference Range Comments PROTIME (BEAKER) (test code = 759) 17.5 seconds 11.9-14.2 INR (BEAKER) (test code = 370) 1.5 <=5.9 Effective 07/24/2018: PT Reference Range ChangeNew: 11.9-14.2 Previous: 11.7- 14.7RECOMMENDED COUMADIN/WARFARIN INR THERAPY RANGESSTANDARD DOSE: 2.0-3.0 Includes: PROPHYLAXIS for venous thrombosis, systemic embolization; TREATMENT for venous thrombosis and/or pulmonary embolus.HIGH RISK: Target INR is2.5-3.5 for patients wiht mechanical heart valves.CBC W/PLT COUNT & AUTO [id number] 03:57:00 Test Item Value Reference Range Comments WHITE BLOOD CELL COUNT (BEAKER) (test code = 9.4 K/ L 3.5 -10.5 775) RED BLOOD CELL COUNT (BEAKER) (test code = 761) 2.94 M/ L 4.63-6.08 HEMOGLOBIN (BEAKER) (test code = 410) 8.2 GM/DL 13.7-17.5 HEMATOCRIT (BEAKER) (test code = 411) 24.9 % 40.1-51.0 MEAN CORPUSCULAR VOLUME (BEAKER) (test code = 84.7 fL 79 .0-92.2 753) MEAN CORPUSCULAR HEMOGLOBIN (BEAKER) (test code 27.9 pg 25.7-32.2 = 751) MEAN CORPUSCULAR HEMOGLOBIN CONC (BEAKER) (test 32.9 GM/DL 32.3-36.5 code = 752) RED CELL DISTRIBUTION WIDTH (BEAKER) (test code 17.6 % 11.6-14.4 = 412) PLATELET COUNT (BEAKER) (test code = 756) 125 K/CU MM 150-45 0 MEAN PLATELET VOLUME (BEAKER) (test code = 754) 11.6 fL 9.4-12.4 NUCLEATED RED BLOOD CELLS (BEAKER) (test code = 0 /100 WBC 0-0 413) NEUTROPHILS RELATIVE PERCENT (BEAKER) (test code 63 % = 429) LYMPHOCYTES RELATIVE PERCENT (BEAKER) (test code 20 % = 430) MONOCYTES RELATIVE PERCENT (BEAKER) (test code = 15 % 431) EOSINOPHILS RELATIVE PERCENT (BEAKER) (test code 2 % = 432) BASOPHILS RELATIVE PERCENT (BEAKER) (test code = 0 % 437) NEUTROPHILS ABSOLUTE COUNT (BEAKER) (test code = 5.94 K/ L 1.78-5.38 670) LYMPHOCYTES ABSOLUTE COUNT (BEAKER) (test code = 1.83 K/ L 1.32-3.57 414) MONOCYTES ABSOLUTE COUNT (BEAKER) (test code = 1.38 K/ L 0 .30-0.82 415) EOSINOPHILS ABSOLUTE COUNT (BEAKER) (test code = 0.17 K/ L 0.04-0.54 416) BASOPHILS ABSOLUTE COUNT (BEAKER) (test code = 0.03 K/ L 0 .01-0.08 417) IMMATURE GRANULOCYTES-RELATIVE PERCENT (BEAKER) 1 % 0-1 (test code = 2801) CALCIUM, [id number] 03:44:00 Test Item Value Reference Range Comments CALCIUM IONIZED (BEAKER) (test code = 698) 1.09 mmol/L 1.12- 1.27 PH, BLOOD (BEAKER) (test code = 1810) 7.44 BLOOD GAS, [id number] 03:44:00 Test Item Value Reference Range Comments PH ARTERIAL (BEAKER) (test code = 383) 7.44 7.35-7.45 PCO2 ARTERIAL (BEAKER) (test code = 384) 35 mmHg 35-45 PO2 ARTERIAL (BEAKER) (test code = 385) 159 mmHg 80-90 O2 SATURATION ARTERIAL (BEAKER) (test code = 99.1 % 96. 0-97.0 386) HCO3 ARTERIAL (BEAKER) (test code = 388) 23 mmol/L 21-29 BASE EXCESS ARTERIAL (BEAKER) (test code = 387) -1.1 mmol/L -2.0-3.0 PATIENT TEMPERATURE (BEAKER) (test code = 1818) 37.0 C FIO2 (BEAKER) (test code = 1819) 40.0 % POCT-GLUCOSE [id number] 23:26:00 Test Item Value Reference Range Comments POC-GLUCOSE METER (BEAKER) 117 mg/dL 70-110 : HEIDI ANNIE AT [facility] [address], [place] (test code = 1538) [facility], [address]: Billing Auditor/Technic juana ID = [id number] for DANTE, NEEL CBC W/PLT COUNT & AUTO [id number] 23:13:00 Test Item Value Reference Range Comments WHITE BLOOD CELL COUNT (BEAKER) (test code = 8.6 K/ L 3.5 -10.5 775) RED BLOOD CELL COUNT (BEAKER) (test code = 761) 2.40 M/ L 4.63-6.08 HEMOGLOBIN (BEAKER) (test code = 410) 6.7 GM/DL 13.7-17.5 HEMATOCRIT (BEAKER) (test code = 411) 20.6 % 40.1-51.0 MEAN CORPUSCULAR VOLUME (BEAKER) (test code = 85.8 fL 79 .0-92.2 753) MEAN CORPUSCULAR HEMOGLOBIN (BEAKER) (test code 27.9 pg 25.7-32.2 = 751) MEAN CORPUSCULAR HEMOGLOBIN CONC (BEAKER) (test 32.5 GM/DL 32.3-36.5 code = 752) RED CELL DISTRIBUTION WIDTH (BEAKER) (test code 18.2 % 11.6-14.4 = 412) PLATELET COUNT (BEAKER) (test code = 756) 128 K/CU MM 150-45 0 MEAN PLATELET VOLUME (BEAKER) (test code = 754) 12.0 fL 9.4-12.4 NUCLEATED RED BLOOD CELLS (BEAKER) (test code = 0 /100 WBC 0-0 413) NEUTROPHILS RELATIVE PERCENT (BEAKER) (test code 65 % = 429) LYMPHOCYTES RELATIVE PERCENT (BEAKER) (test code 19 % = 430) MONOCYTES RELATIVE PERCENT (BEAKER) (test code = 14 % 431) EOSINOPHILS RELATIVE PERCENT (BEAKER) (test code 2 % = 432) BASOPHILS RELATIVE PERCENT (BEAKER) (test code = 0 % 437) NEUTROPHILS ABSOLUTE COUNT (BEAKER) (test code = 5.56 K/ L 1.78-5.38 670) LYMPHOCYTES ABSOLUTE COUNT (BEAKER) (test code = 1.66 K/ L 1.32-3.57 414) MONOCYTES ABSOLUTE COUNT (BEAKER) (test code = 1.19 K/ L 0 .30-0.82 415) EOSINOPHILS ABSOLUTE COUNT (BEAKER) (test code = 0.15 K/ L 0.04-0.54 416) BASOPHILS ABSOLUTE COUNT (BEAKER) (test code = 0.03 K/ L 0 .01-0.08 417) IMMATURE GRANULOCYTES-RELATIVE PERCENT (BEAKER) 1 % 0-1 (test code = 2801) BASIC METABOLIC [id number] 16:33:00 Test Item Value Reference Range Comments SODIUM (BEAKER) (test 139 meq/L 136-145 code = 381) POTASSIUM (BEAKER) (test 4.6 meq/L 3.5-5.1 code = 379) CHLORIDE (BEAKER) (test 112 meq/L 98-107 code = 382) CO2 (BEAKER) (test code = 21 meq/L 22-29 355) BLOOD UREA NITROGEN 22 mg/dL 7-21 (BEAKER) (test code = 354) CREATININE (BEAKER) (test 1.12 mg/dL 0.57-1.25 code = 358) GLUCOSE RANDOM (BEAKER) 133 mg/dL 70-105 (test code = 652) CALCIUM (BEAKER) (test 7.6 mg/dL 8.4-10.2 code = 697) EGFR (BEAKER) (test code 66 mL/min/1.73 sq m EST IMATED GFR IS NOT = 1092) ACCURATE CREA TININE CLEARANCE IN PRE DICTING GLOMERULAR FILTR ATION RATE. ESTIMATED GFR IS NOT APPLICABLE F OR DIALYSIS PATIENT S. Billing Auditor ID - JOSE [id number] 16:29:00 Test Item Value Reference Range Comments PHOSPHORUS (BEAKER) (test code = 604) 5.0 mg/dL 2.3-4.7 Billing Auditor ID - JOSE EBLOOD GAS, [id number] 16:18:00 Test Item Value Reference Range Comments PH ARTERIAL (BEAKER) (test code = 383) 7.38 7.35-7.45 PCO2 ARTERIAL (BEAKER) (test code = 384) 38 mmHg 35-45 PO2 ARTERIAL (BEAKER) (test code = 385) 192 mmHg 80-90 O2 SATURATION ARTERIAL (BEAKER) (test code = 99.3 % 96. 0-97.0 386) HCO3 ARTERIAL (BEAKER) (test code = 388) 22 mmol/L 21-29 BASE EXCESS ARTERIAL (BEAKER) (test code = 387) -2.9 mmol/L -2.0-3.0 PATIENT TEMPERATURE (BEAKER) (test code = 1818) 37.0 C FIO2 (BEAKER) (test code = 1819) 45.0 % CBC W/PLT COUNT & AUTO [id number] 16:17:00 Test Item Value Reference Range Comments WHITE BLOOD CELL COUNT (BEAKER) (test code = 7.6 K/ L 3.5 -10.5 775) RED BLOOD CELL COUNT (BEAKER) (test code = 761) 2.39 M/ L 4.63-6.08 HEMOGLOBIN (BEAKER) (test code = 410) 6.7 GM/DL 13.7-17.5 HEMATOCRIT (BEAKER) (test code = 411) 20.1 % 40.1-51.0 MEAN CORPUSCULAR VOLUME (BEAKER) (test code = 84.1 fL 79 .0-92.2 753) MEAN CORPUSCULAR HEMOGLOBIN (BEAKER) (test code 28.0 pg 25.7-32.2 = 751) MEAN CORPUSCULAR HEMOGLOBIN CONC (BEAKER) (test 33.3 GM/DL 32.3-36.5 code = 752) RED CELL DISTRIBUTION WIDTH (BEAKER) (test code 18.4 % 11.6-14.4 = 412) PLATELET COUNT (BEAKER) (test code = 756) 121 K/CU MM 150-45 0 MEAN PLATELET VOLUME (BEAKER) (test code = 754) 11.9 fL 9.4-12.4 NUCLEATED RED BLOOD CELLS (BEAKER) (test code = 0 /100 WBC 0-0 413) NEUTROPHILS RELATIVE PERCENT (BEAKER) (test code 67 % = 429) LYMPHOCYTES RELATIVE PERCENT (BEAKER) (test code 18 % = 430) MONOCYTES RELATIVE PERCENT (BEAKER) (test code = 13 % 431) EOSINOPHILS RELATIVE PERCENT (BEAKER) (test code 1 % = 432) BASOPHILS RELATIVE PERCENT (BEAKER) (test code = 1 % 437) NEUTROPHILS ABSOLUTE COUNT (BEAKER) (test code = 5.07 K/ L 1.78-5.38 670) LYMPHOCYTES ABSOLUTE COUNT (BEAKER) (test code = 1.36 K/ L 1.32-3.57 414) MONOCYTES ABSOLUTE COUNT (BEAKER) (test code = 0.97 K/ L 0 .30-0.82 415) EOSINOPHILS ABSOLUTE COUNT (BEAKER) (test code = 0.08 K/ L 0.04-0.54 416) BASOPHILS ABSOLUTE COUNT (BEAKER) (test code = 0.04 K/ L 0 .01-0.08 417) IMMATURE GRANULOCYTES-RELATIVE PERCENT (BEAKER) 1 % 0-1 (test code = 2801) RAD, CHEST, 1 VIEW, NON [id number] 14:28:00Reason for exam:- >hemothoraxShould this be performed at the bedside?->YesFINAL REPORT [...] body. Signed: Dandre Cruz Verified Date/Time: 04/15/2019 14:28:00 Reading Location: [facility] Radiology Reading Room SPIN/CONCENTRATION CHARGE 2019-04-15 14:00:00 Test Item Value Reference Range Comments CONCENTRATION CHARGED (BEAKER) (test code = 2657) Done THROMBOELASTOGRAPH (TEG)2019-04-15 13:00:00 Test Item Value Reference Range Comments TEG ACTIVATED CLOTTING TIME (BEAKER) (test code 5.0 minutes 4.0-7.0 = 1407) TEG FIBRINOGEN ACTIVITY (BEAKER) (test code = 75.9 degrees 61 .0-73.0 1408) TEG PLT. AGGREGATION (BEAKER) (test code = 69.6 MM 55.0- 65.0 1409) TEG FIBRINOLYSIS (BEAKER) (test code = 1410) 0.1 % 0.0 -5.0 TGH ACTIVATED CLOTTING TIME (BEAKER) (test code 5.1 minutes 4.0-7.0 = 1411) TGH FIBRINOGEN ACTIVITY (BEAKER) (test code = 76.0 degrees 61 .0-73.0 1412) TGH PLT. AGGREGATION (BEAKER) (test code = 65.7 MM 55.0- 65.0 1413) TGH FIBRINOLYSIS (BEAKER) (test code = 1414) 4.1 % 0.0 -5.0 [id number] 11:47:00Medical Cytology Report Case: [id number] Authorizing Provider: Fernando Andrews MD Collected: 04/14/2019 1548 Ordering Location: [facility] Received: 04/15/2019 0913 PERIOPERATIVE SERVICES Pathologist: Sean Piedra MD Specimen: Pleural, Right, Multi loculated pleural effusions RIGHT PLEURAL FLUID (CYTOSPINS): - NEGATIVE FOR MALIGNANCY PREDOMINANTLY BLOOD Signing Pathologist Direct Phone Line: [phone] signed by Sean Piedra MD on 04/15/2019 at 11:47 [id number] multi loculated pleural effusions, pneumonia, acute respiratory failureRIGHT PLEURAL [id number] mls bloody; 4 cytospinsCollected: [id number]: [id number]ll Children's Hospital,Department of Pathology, [address] [place] [id number], [facility], [facility], [address] [place] [address], [facility], [facility], [address] [place] [address], [place] [address], PBUW-GLUCOSE [id number] 11:33:00 Test Item Value Reference Range Comments POC-GLUCOSE METER (BEAKER) 113 mg/dL 70-110 : HEIID ANNIE AT [facility] [address] [place] [address] (test code = 1538) [facility], 7 [address]: Billing Auditor/Technic juana ID = [id number] for CAMERON PENN Thanh CBC W/PLT COUNT & AUTO [id number] 09:14:00 Test Item Value Reference Range Comments WHITE BLOOD CELL COUNT (BEAKER) (test code = 6.3 K/ L 3.5 -10.5 775) RED BLOOD CELL COUNT (BEAKER) (test code = 761) 2.19 M/ L 4.63-6.08 HEMOGLOBIN (BEAKER) (test code = 410) 6.0 GM/DL 13.7-17.5 HEMATOCRIT (BEAKER) (test code = 411) 18.5 % 40.1-51.0 MEAN CORPUSCULAR VOLUME (BEAKER) (test code = 84.5 fL 79 .0-92.2 753) MEAN CORPUSCULAR HEMOGLOBIN (BEAKER) (test code 27.4 pg 25.7-32.2 = 751) MEAN CORPUSCULAR HEMOGLOBIN CONC (BEAKER) (test 32.4 GM/DL 32.3-36.5 code = 752) RED CELL DISTRIBUTION WIDTH (BEAKER) (test code 19.7 % 11.6-14.4 = 412) PLATELET COUNT (BEAKER) (test code = 756) 109 K/CU MM 150-45 0 MEAN PLATELET VOLUME (BEAKER) (test code = 754) 11.5 fL 9.4-12.4 NUCLEATED RED BLOOD CELLS (BEAKER) (test code = 0 /100 WBC 0-0 413) NEUTROPHILS RELATIVE PERCENT (BEAKER) (test code 65 % = 429) LYMPHOCYTES RELATIVE PERCENT (BEAKER) (test code 23 % = 430) MONOCYTES RELATIVE PERCENT (BEAKER) (test code = 10 % 431) EOSINOPHILS RELATIVE PERCENT (BEAKER) (test code 1 % = 432) BASOPHILS RELATIVE PERCENT (BEAKER) (test code = 0 % 437) NEUTROPHILS ABSOLUTE COUNT (BEAKER) (test code = 4.10 K/ L 1.78-5.38 670) LYMPHOCYTES ABSOLUTE COUNT (BEAKER) (test code = 1.48 K/ L 1.32-3.57 414) MONOCYTES ABSOLUTE COUNT (BEAKER) (test code = 0.63 K/ L 0 .30-0.82 415) EOSINOPHILS ABSOLUTE COUNT (BEAKER) (test code = 0.07 K/ L 0.04-0.54 416) BASOPHILS ABSOLUTE COUNT (BEAKER) (test code = 0.02 K/ L 0 .01-0.08 417) IMMATURE GRANULOCYTES-RELATIVE PERCENT (BEAKER) 0 % 0-1 (test code = 2801) CALCIUM, [id number] 06:51:00 Test Item Value Reference Range Comments CALCIUM IONIZED (BEAKER) (test code = 698) 1.11 mmol/L 1.12- 1.27 PH, BLOOD (BEAKER) (test code = 1810) 7.47 RAD, CHEST, 1 VIEW, NON [id number] 05:32:00Reason for exam:->s/p R VATSShould this be performed at the bedside?->YesFINAL REPORT CLINICAL INDICATION: Postop Comparison: 04/14/2019 2032 hours The cardiomediastinal contours are stable. Right-sided parenchymal and pleural opacities are similar toprevious. A small right pneumothorax is noted at the lateral mid to upper chest. Support lines are stable. Signed: Reji Tyler MDReport Verified Date/Time: 04/15/2019 05:32:15 BLOOD GAS, [id number] 05:01:00 Test Item Value Reference Range Comments PH ARTERIAL (BEAKER) (test code = 383) 7.47 7.35-7.45 PCO2 ARTERIAL (BEAKER) (test code = 384) 35 mmHg 35-45 PO2 ARTERIAL (BEAKER) (test code = 385) 200 mmHg 80-90 O2 SATURATION ARTERIAL (BEAKER) (test code = 386) 99.4 % 96.0-97.0 HCO3 ARTERIAL (BEAKER) (test code = 388) 25 mmol/L 21-29 BASE EXCESS ARTERIAL (BEAKER) (test code = 387) 0.9 mmol/L -2.0-3.0 PATIENT TEMPERATURE (BEAKER) (test code = 1818) 37.0 C FIO2 (BEAKER) (test code = 1819) 100.0 % BASIC METABOLIC [id number] 04:56:00 Test Item Value Reference Range Comments SODIUM (BEAKER) (test 139 meq/L 136-145 code = 381) POTASSIUM (BEAKER) (test 4.7 meq/L 3.5-5.1 code = 379) CHLORIDE (BEAKER) (test 112 meq/L 98-107 code = 382) CO2 (BEAKER) (test code = 24 meq/L 22-29 355) BLOOD UREA NITROGEN 19 mg/dL 7-21 (BEAKER) (test code = 354) CREATININE (BEAKER) (test 0.97 mg/dL 0.57-1.25 code = 358) GLUCOSE RANDOM (BEAKER) 115 mg/dL 70-105 (test code = 652) CALCIUM (BEAKER) (test 7.7 mg/dL 8.4-10.2 code = 697) EGFR (BEAKER) (test code 78 mL/min/1.73 sq m EST IMATED GFR IS NOT = 1092) ACCURATE CREA TININE CLEARANCE IN PRE DICTING GLOMERULAR FILTR ATION RATE. ESTIMATED GFR IS NOT APPLICABLE F OR DIALYSIS PATIENT S. Billing Auditor ID - ELISSA MLACTIC ACID, [id number] 04:56:00 Test Item Value Reference Range Comments LACTATE BLOOD ARTERIAL (2) (BEAKER) (test code = 1.2 mmol/L 0.5-2.2 2874) Billing Auditor ID - ELISSA [id number] 04:53:00 Test Item Value Reference Range Comments PHOSPHORUS (BEAKER) (test code = 604) 4.3 mg/dL 2.3-4.7 Billing Auditor ID - ELISSA [id number] 04:53:00 Test Item Value Reference Range Comments MAGNESIUM (BEAKER) (test code = 627) 2.0 mg/dL 1.6-2.6 Billing Auditor ID - ELISSA MCBC W/PLT COUNT & AUTO [id number] 04:41:00 Test Item Value Reference Range Comments WHITE BLOOD CELL COUNT (BEAKER) (test code = 7.8 K/ L 3.5 -10.5 775) RED BLOOD CELL COUNT (BEAKER) (test code = 761) 1.97 M/ L 4.63-6.08 HEMOGLOBIN (BEAKER) (test code = 410) 5.2 GM/DL 13.7-17.5 HEMATOCRIT (BEAKER) (test code = 411) 16.5 % 40.1-51.0 MEAN CORPUSCULAR VOLUME (BEAKER) (test code = 83.8 fL 79 .0-92.2 753) MEAN CORPUSCULAR HEMOGLOBIN (BEAKER) (test code 26.4 pg 25.7-32.2 = 751) MEAN CORPUSCULAR HEMOGLOBIN CONC (BEAKER) (test 31.5 GM/DL 32.3-36.5 code = 752) RED CELL DISTRIBUTION WIDTH (BEAKER) (test code 20.7 % 11.6-14.4 = 412) PLATELET COUNT (BEAKER) (test code = 756) 125 K/CU MM 150-45 0 MEAN PLATELET VOLUME (BEAKER) (test code = 754) 12.1 fL 9.4-12.4 NUCLEATED RED BLOOD CELLS (BEAKER) (test code = 0 /100 WBC 0-0 413) NEUTROPHILS RELATIVE PERCENT (BEAKER) (test code 69 % = 429) LYMPHOCYTES RELATIVE PERCENT (BEAKER) (test code 21 % = 430) MONOCYTES RELATIVE PERCENT (BEAKER) (test code = 9 % 431) EOSINOPHILS RELATIVE PERCENT (BEAKER) (test code 1 % = 432) BASOPHILS RELATIVE PERCENT (BEAKER) (test code = 0 % 437) NEUTROPHILS ABSOLUTE COUNT (BEAKER) (test code = 5.36 K/ L 1.78-5.38 670) LYMPHOCYTES ABSOLUTE COUNT (BEAKER) (test code = 1.66 K/ L 1.32-3.57 414) MONOCYTES ABSOLUTE COUNT (BEAKER) (test code = 0.67 K/ L 0 .30-0.82 415) EOSINOPHILS ABSOLUTE COUNT (BEAKER) (test code = 0.06 K/ L 0.04-0.54 416) BASOPHILS ABSOLUTE COUNT (BEAKER) (test code = 0.01 K/ L 0 .01-0.08 417) IMMATURE GRANULOCYTES-RELATIVE PERCENT (BEAKER) 0 % 0-1 (test code = 2801) [id number] 02:37:00 Test Item Value Reference Range Comments FIBRINOGEN LEVEL (BEAKER) (test code = 658) 177 mg/dl 225- 434 [id number] 02:37:00 Test Item Value Reference Range Comments PROTIME (BEAKER) (test code = 759) 19.8 seconds 11.9-14.2 INR (BEAKER) (test code = 370) 1.7 <=5.9 PARTIAL THROMBOPLASTIN TIME (BEAKER) (test code 41.1 seconds 22.5-36.0 = 760) Effective 07/24/2018: PT Reference Range ChangeNew: 11.9-14.2 Previous: 11.7- 14.7RECOMMENDED COUMADIN/WARFARIN INR THERAPY RANGESSTANDARD DOSE: 2.0-3.0 Includes: PROPHYLAXIS for venous thrombosis, systemic embolization; TREATMENT for venous thrombosis and/or pulmonary embolus.HIGH RISK: Target INR is2.5-3.5 for patients wiht mechanical heart valves.[id number] 02:37:00 Test Item Value Reference Range Comments PARTIAL THROMBOPLASTIN TIME (BEAKER) (test code 41.1 seconds 22.5-36.0 = 760) PROTHROMBIN [id number] 02:36:00 Test Item Value Reference Range Comments PROTIME (BEAKER) (test code = 759) 19.8 seconds 11.9-14.2 INR (BEAKER) (test code = 370) 1.7 <=5.9 Effective 07/24/2018: PT Reference Range ChangeNew: 11.9-14.2 Previous: 11.7- 14.7RECOMMENDED COUMADIN/WARFARIN INR THERAPY RANGESSTANDARD DOSE: 2.0-3.0 Includes: PROPHYLAXIS for venous thrombosis, systemic embolization; TREATMENT for venous thrombosis and/or pulmonary embolus.HIGH RISK: Target INR is2.5-3.5 for patients wiht mechanical heart valves.CBC W/PLT COUNT & AUTO [id number] 01:17:00 Test Item Value Reference Range Comments WHITE BLOOD CELL COUNT (BEAKER) 10.9 K/ L 3.5-10.5 (test code = 775) RED BLOOD CELL COUNT (BEAKER) 1.74 M/ L 4.63-6.08 (test code = 761) HEMOGLOBIN (BEAKER) (test code 4.4 GM/DL 13.7-17.5 P ost surgery specimen per = 410) [id number]. HEMATOCRIT (BEAKER) (test code 14.6 % 40.1-51.0 = 411) MEAN CORPUSCULAR VOLUME 83.9 fL 79.0-92.2 (BEAKER) (test code = 753) MEAN CORPUSCULAR HEMOGLOBIN 25.3 pg 25.7-32.2 (BEAKER) (test code = 751) MEAN CORPUSCULAR HEMOGLOBIN 30.1 GM/DL 32.3-36.5 CONC (BEAKER) (test code = 752) RED CELL DISTRIBUTION WIDTH 21.8 % 11.6-14.4 (BEAKER) (test code = 412) PLATELET COUNT (BEAKER) (test 130 K/CU MM 150-450 code = 756) MEAN PLATELET VOLUME (BEAKER) 11.9 fL 9.4-12.4 (test code = 754) NUCLEATED RED BLOOD CELLS 0 /100 WBC 0-0 (BEAKER) (test code = 413) NEUTROPHILS RELATIVE PERCENT 79 % (BEAKER) (test code = 429) LYMPHOCYTES RELATIVE PERCENT 14 % (BEAKER) (test code = 430) MONOCYTES RELATIVE PERCENT 7 % (BEAKER) (test code = 431) EOSINOPHILS RELATIVE PERCENT 0 % (BEAKER) (test code = 432) BASOPHILS RELATIVE PERCENT 0 % (BEAKER) (test code = 437) NEUTROPHILS ABSOLUTE COUNT 8.60 K/ L 1.78-5.38 (BEAKER) (test code = 670) LYMPHOCYTES ABSOLUTE COUNT 1.48 K/ L 1.32-3.57 (BEAKER) (test code = 414) MONOCYTES ABSOLUTE COUNT 0.73 K/ L 0.30-0.82 (BEAKER) (test code = 415) EOSINOPHILS ABSOLUTE COUNT 0.04 K/ L 0.04-0.54 (BEAKER) (test code = 416) BASOPHILS ABSOLUTE COUNT 0.01 K/ L 0.01-0.08 (BEAKER) (test code = 417) IMMATURE GRANULOCYTES-RELATIVE 1 % 0-1 PERCENT (BEAKER) (test code = 2801) [id number] 00:58:00 Test Item Value Reference Range Comments CORTISOL, TOTAL (BEAKER) (test code = 2755) 10.6 ug/dL 3.7- 19.4 Billing Auditor ID - BSPOCT-GLUCOSE [id number] 00:35:00 Test Item Value Reference Range Comments POC-GLUCOSE METER (BEAKER) 105 mg/dL 70-110 : HEIDI ANNIE AT [facility] [id number] (test code = 1538) [facility], 7 30: Billing Auditor/Technic juana ID = [id number] for Juan M Powell RAD, CHEST, 1 VIEW, NON [id number] 22:34:00On arrival to [facility] for exam:->s/p R VATS decorticationShould this be performed at the doctors' hospital e?->YesFINAL REPORT TECHNIQUE: Frontal view of the chest. [...] MDReport Verified Date/Time: 04/14/2019 22:34:49 Reading Location: [facility] Consult Reading Room [id number] 20:24:00 Test Item Value Reference Range Comments PHOSPHORUS (BEAKER) (test code = 604) 4.0 mg/dL 2.3-4.7 Billing Auditor ID - [id number] 20:24:00 Test Item Value Reference Range Comments MAGNESIUM (BEAKER) (test code = 627) 1.8 mg/dL 1.6-2.6 Billing Auditor ID - BSBLOOD GAS, [id number] 20:22:00 Test Item Value Reference Range Comments PH ARTERIAL (BEAKER) (test code = 383) 7.44 7.35-7.45 PCO2 ARTERIAL (BEAKER) (test code = 384) 39 mmHg 35-45 PO2 ARTERIAL (BEAKER) (test code = 385) 220 mmHg 80-90 O2 SATURATION ARTERIAL (BEAKER) (test code = 386) 99.5 % 96.0-97.0 HCO3 ARTERIAL (BEAKER) (test code = 388) 26 mmol/L 21-29 BASE EXCESS ARTERIAL (BEAKER) (test code = 387) 1.5 mmol/L -2.0-3.0 PATIENT TEMPERATURE (BEAKER) (test code = 1818) 36.8 C FIO2 (BEAKER) (test code = 1819) 80.0 % CALCIUM, [id number] 20:19:00 Test Item Value Reference Range Comments CALCIUM IONIZED (BEAKER) (test code = 698) 1.23 mmol/L 1.12- 1.27 PH, BLOOD (BEAKER) (test code = 1810) 7.44 COMPREHENSIVE METABOLIC [id number] 19:53:00 Test Item Value Reference Range Comments TOTAL PROTEIN (BEAKER) 5.5 gm/dL 6.0-8.3 (test code = 770) ALBUMIN (BEAKER) (test 1.8 g/dL 3.5-5.0 code = 1145) ALKALINE PHOSPHATASE 157 U/L 40-150 (BEAKER) (test code = 346) BILIRUBIN TOTAL (BEAKER) 1.0 mg/dL 0.2-1.2 (test code = 377) SODIUM (BEAKER) (test code 141 meq/L 136-145 = 381) POTASSIUM (BEAKER) (test 3.6 meq/L 3.5-5.1 code = 379) CHLORIDE (BEAKER) (test 107 meq/L 98-107 code = 382) CO2 (BEAKER) (test code = 25 meq/L 22-29 355) BLOOD UREA NITROGEN 16 mg/dL 7-21 (BEAKER) (test code = 354) CREATININE (BEAKER) (test 0.88 mg/dL 0.57-1.25 code = 358) GLUCOSE RANDOM (BEAKER) 99 mg/dL 70-105 (test code = 652) CALCIUM (BEAKER) (test 7.7 mg/dL 8.4-10.2 code = 697) AST (SGOT) (BEAKER) (test 38 U/L 5-34 code = 353) ALT (SGPT) (BEAKER) (test 30 U/L 6-55 code = 347) EGFR (BEAKER) (test code = 87 mL/min/1.73 sq m E STIMATED GFR IS NOT 1092) ACCURATE CREA TININE CLEARANCE IN PRE DICTING GLOMERULAR FILTR ATION RATE. ESTIMATED GFR IS NOT APPLICABLE F OR DIALYSIS PATIENT S. Billing Auditor ID - BSBLOOD GAS, [id number] 17:56:00 Test Item Value Reference Range Comments PH ARTERIAL (BEAKER) (test code = 383) 7.48 7.35-7.45 PCO2 ARTERIAL (BEAKER) (test code = 384) 37 mmHg 35-45 PO2 ARTERIAL (BEAKER) (test code = 385) 391 mmHg 80-90 O2 SATURATION ARTERIAL (BEAKER) (test code = 386) 99.8 % 96.0-97.0 HCO3 ARTERIAL (BEAKER) (test code = 388) 27 mmol/L 21-29 BASE EXCESS ARTERIAL (BEAKER) (test code = 387) 2.8 mmol/L -2.0-3.0 PATIENT TEMPERATURE (BEAKER) (test code = 1818) 36.0 C FIO2 (BEAKER) (test code = 1819) 100.0 % CALCIUM, [id number] 17:56:00 Test Item Value Reference Range Comments CALCIUM IONIZED (BEAKER) (test code = 698) 1.30 mmol/L 1.12- 1.27 PH, BLOOD (BEAKER) (test code = 1810) 7.46 POTASSIUM-STAT [id number] 17:56:00 Test Item Value Reference Range Comments POTASSIUM (BEAKER) (test code = 379) 3.4 meq/L 3.6-5.5 HGB/HCT (H&H) - STAT [id number] 17:56:00 Test Item Value Reference Range Comments HEMOGLOBIN (BEAKER) (test code = 410) 9.0 g/dL 13.0-16.8 HEMATOCRIT (BEAKER) (test code = 411) 26.0 % 40.0-50.0 GLUCOSE-STAT [id number] 17:55:00 Test Item Value Reference Range Comments GLUCOSE RANDOM (BEAKER) (test code = 652) 100 mg/dL 70-110 SODIUM NA-STAT [id number] 17:55:00 Test Item Value Reference Range Comments SODIUM (BEAKER) (test code = 381) 138 meq/L 135-148 BLOOD GAS, [id number] 16:42:00 Test Item Value Reference Range Comments PH ARTERIAL (BEAKER) (test code = 383) 7.52 7.35-7.45 PCO2 ARTERIAL (BEAKER) (test code = 384) 35 mmHg 35-45 PO2 ARTERIAL (BEAKER) (test code = 385) 263 mmHg 80-90 O2 SATURATION ARTERIAL (BEAKER) (test code = 386) 99.7 % 96.0-97.0 HCO3 ARTERIAL (BEAKER) (test code = 388) 28 mmol/L 21-29 BASE EXCESS ARTERIAL (BEAKER) (test code = 387) 5.1 mmol/L -2.0-3.0 PATIENT TEMPERATURE (BEAKER) (test code = 1818) 36.2 C FIO2 (BEAKER) (test code = 1819) 100.0 % POTASSIUM-STAT [id number] 16:42:00 Test Item Value Reference Range Comments POTASSIUM (BEAKER) (test code = 379) 3.4 meq/L 3.6-5.5 HGB/HCT (H&H) - STAT [id number] 16:42:00 Test Item Value Reference Range Comments HEMOGLOBIN (BEAKER) (test code = 410) 10.1 g/dL 13.0-16.8 HEMATOCRIT (BEAKER) (test code = 411) 30.0 % 40.0-50.0 CALCIUM, [id number] 16:41:00 Test Item Value Reference Range Comments CALCIUM IONIZED (BEAKER) (test code = 698) 1.12 mmol/L 1.12- 1.27 PH, BLOOD (BEAKER) (test code = 1810) 7.51 GLUCOSE-STAT [id number] 16:39:00 Test Item Value Reference Range Comments GLUCOSE RANDOM (BEAKER) (test code = 652) 104 mg/dL 70-110 SODIUM NA-STAT [id number] 16:39:00 Test Item Value Reference Range Comments SODIUM (BEAKER) (test code = 381) 137 meq/L 135-148 GLUCOSE-STAT [id number] 15:31:00 Test Item Value Reference Range Comments GLUCOSE RANDOM (BEAKER) (test code = 652) 92 mg/dL 70-110 SODIUM NA-STAT [id number] 15:31:00 Test Item Value Reference Range Comments SODIUM (BEAKER) (test code = 381) 135 meq/L 135-148 CALCIUM, [id number] 15:31:00 Test Item Value Reference Range Comments CALCIUM IONIZED (BEAKER) (test code = 698) 1.07 mmol/L 1.12- 1.27 PH, BLOOD (BEAKER) (test code = 1810) 7.55 BLOOD GAS, [id number] 15:31:00 Test Item Value Reference Range Comments PH ARTERIAL (BEAKER) (test code = 383) 7.55 7.35-7.45 PCO2 ARTERIAL (BEAKER) (test code = 384) 33 mmHg 35-45 PO2 ARTERIAL (BEAKER) (test code = 385) 390 mmHg 80-90 O2 SATURATION ARTERIAL (BEAKER) (test code = 386) 99.9 % 96.0-97.0 HCO3 ARTERIAL (BEAKER) (test code = 388) 28 mmol/L 21-29 BASE EXCESS ARTERIAL (BEAKER) (test code = 387) 5.3 mmol/L -2.0-3.0 PATIENT TEMPERATURE (BEAKER) (test code = 1818) 36.3 C FIO2 (BEAKER) (test code = 1819) 100.0 % POTASSIUM-STAT [id number] 15:31:00 Test Item Value Reference Range Comments POTASSIUM (BEAKER) (test code = 379) 3.4 meq/L 3.6-5.5 HGB/HCT (H&H) - STAT [id number] 15:31:00 Test Item Value Reference Range Comments HEMOGLOBIN (BEAKER) (test code = 410) 10.2 g/dL 13.0-16.8 HEMATOCRIT (BEAKER) (test code = 411) 30.0 % 40.0-50.0 RAD, CHEST, 1 VIEW, NON [id number] 10:51:00Reason for exam:->eval pleural effusionsShould this be [...] MDReport Verified Date/Time: 04/14/2019 10:51:03 Reading Location: [facility] Women BASIC METABOLIC [id number] 01:52:00 Test Item Value Reference Range Comments SODIUM (BEAKER) (test 138 meq/L 136-145 code = 381) POTASSIUM (BEAKER) (test 3.5 meq/L 3.5-5.1 code = 379) CHLORIDE (BEAKER) (test 105 meq/L 98-107 code = 382) CO2 (BEAKER) (test code = 29 meq/L 22-29 355) BLOOD UREA NITROGEN 16 mg/dL 7-21 (BEAKER) (test code = 354) CREATININE (BEAKER) (test 0.86 mg/dL 0.57-1.25 code = 358) GLUCOSE RANDOM (BEAKER) 109 mg/dL 70-105 (test code = 652) CALCIUM (BEAKER) (test 7.6 mg/dL 8.4-10.2 code = 697) EGFR (BEAKER) (test code 90 mL/min/1.73 sq m EST IMATED GFR IS NOT = 1092) ACCURATE CREA TININE CLEARANCE IN PRE DICTING GLOMERULAR FILTR ATION RATE. ESTIMATED GFR IS NOT APPLICABLE F OR DIALYSIS PATIENT S. Billing Auditor ID - PIBECKY [id number] 01:51:00 Test Item Value Reference Range Comments PHOSPHORUS (BEAKER) (test code = 604) 2.8 mg/dL 2.3-4.7 Billing Auditor ID - EMILIE [id number] 01:51:00 Test Item Value Reference Range Comments MAGNESIUM (BEAKER) (test code = 627) 2.1 mg/dL 1.6-2.6 Billing Auditor ID - EMILIE LCBC W/PLT COUNT & AUTO [id number] 01:30:00 Test Item Value Reference Range Comments WHITE BLOOD CELL COUNT (BEAKER) (test code = 6.4 K/ L 3.5 -10.5 775) RED BLOOD CELL COUNT (BEAKER) (test code = 761) 4.04 M/ L 4.63-6.08 HEMOGLOBIN (BEAKER) (test code = 410) 10.4 GM/DL 13.7-17.5 HEMATOCRIT (BEAKER) (test code = 411) 33.4 % 40.1-51.0 MEAN CORPUSCULAR VOLUME (BEAKER) (test code = 82.7 fL 79 .0-92.2 753) MEAN CORPUSCULAR HEMOGLOBIN (BEAKER) (test code 25.7 pg 25.7-32.2 = 751) MEAN CORPUSCULAR HEMOGLOBIN CONC (BEAKER) (test 31.1 GM/DL 32.3-36.5 code = 752) RED CELL DISTRIBUTION WIDTH (BEAKER) (test code 23.1 % 11.6-14.4 = 412) PLATELET COUNT (BEAKER) (test code = 756) 183 K/CU MM 150-45 0 MEAN PLATELET VOLUME (BEAKER) (test code = 754) 11.9 fL 9.4-12.4 NUCLEATED RED BLOOD CELLS (BEAKER) (test code = 0 /100 WBC 0-0 413) NEUTROPHILS RELATIVE PERCENT (BEAKER) (test code 50 % = 429) LYMPHOCYTES RELATIVE PERCENT (BEAKER) (test code 34 % = 430) MONOCYTES RELATIVE PERCENT (BEAKER) (test code = 12 % 431) EOSINOPHILS RELATIVE PERCENT (BEAKER) (test code 3 % = 432) BASOPHILS RELATIVE PERCENT (BEAKER) (test code = 1 % 437) NEUTROPHILS ABSOLUTE COUNT (BEAKER) (test code = 3.19 K/ L 1.78-5.38 670) LYMPHOCYTES ABSOLUTE COUNT (BEAKER) (test code = 2.13 K/ L 1.32-3.57 414) MONOCYTES ABSOLUTE COUNT (BEAKER) (test code = 0.77 K/ L 0 .30-0.82 415) EOSINOPHILS ABSOLUTE COUNT (BEAKER) (test code = 0.21 K/ L 0.04-0.54 416) BASOPHILS ABSOLUTE COUNT (BEAKER) (test code = 0.04 K/ L 0 .01-0.08 417) IMMATURE GRANULOCYTES-RELATIVE PERCENT (BEAKER) 0 % 0-1 (test code = 2801) PROTHROMBIN [id number] 01:26:00 Test Item Value Reference Range Comments PROTIME (BEAKER) (test code = 759) 14.7 seconds 11.9-14.2 INR (BEAKER) (test code = 370) 1.2 <=5.9 Effective 07/24/2018: PT Reference Range ChangeNew: 11.9-14.2 Previous: 11.7- 14.7RECOMMENDED COUMADIN/WARFARIN INR THERAPY RANGESSTANDARD DOSE: 2.0-3.0 Includes: PROPHYLAXIS for venous thrombosis, systemic embolization; TREATMENT for venous thrombosis and/or pulmonary embolus.HIGH RISK: Target INR is2.5-3.5 for patients wiht mechanical heart valves.POCT-GLUCOSE [id number] 20:47:00 Test Item Value Reference Range Comments POC-GLUCOSE METER (BEAKER) 114 mg/dL 70-110 : HEIDI ANNIE AT [address] (test code = 1538) [facility], [address]: Billing Auditor/Technic juana ID = [id number] for MANUEL COLLADO POCT-GLUCOSE [id number] 17:43:00 Test Item Value Reference Range Comments POC-GLUCOSE METER (BEAKER) 117 mg/dL 70-110 : HEIDI ANNIE AT [address] (test code = 1538) [facility], [address]: Billing Auditor/Technic juana ID = [id number] for FREDERICK COOPER POCT-GLUCOSE [id number] 12:16:00 Test Item Value Reference Range Comments POC-GLUCOSE METER (BEAKER) 111 mg/dL 70-110 : HEIDI ANNIE AT [address] (test code = 1538) [facility], [address]: Billing Auditor/Technic juana ID = [id number] for FREDERICK COOPER RAD, CHEST, 1 VIEW, NON [id number] 08:47:00Reason for exam:->right pleural effusion s/p TPAShould [...] abdomen. Signed: Fredi Lucas MDReport Verified Date/Time: 04/13/2019 08:47:02 Reading Location: [facility] C013T Transitional Reading Room Electronically s igned by: FREDI LUCAS MD on 04/13/2019 08:47 AMBASIC METABOLIC PANEL 2019-04-13 06:13:00 Test Item Value Reference Range Comments SODIUM (BEAKER) (test 139 meq/L 136-145 code = 381) POTASSIUM (BEAKER) (test 3.3 meq/L 3.5-5.1 code = 379) CHLORIDE (BEAKER) (test 106 meq/L 98-107 code = 382) CO2 (BEAKER) (test code = 28 meq/L 22-29 355) BLOOD UREA NITROGEN 15 mg/dL 7-21 (BEAKER) (test code = 354) CREATININE (BEAKER) (test 0.82 mg/dL 0.57-1.25 code = 358) GLUCOSE RANDOM (BEAKER) 98 mg/dL 70-105 (test code = 652) CALCIUM (BEAKER) (test 7.6 mg/dL 8.4-10.2 code = 697) EGFR (BEAKER) (test code 95 mL/min/1.73 sq m EST IMATED GFR IS NOT = 1092) ACCURATE CREA TININE CLEARANCE IN PRE DICTING GLOMERULAR FILTR ATION RATE. ESTIMATED GFR IS NOT APPLICABLE F OR DIALYSIS PATIENT S. Billing Auditor ID - [facility] [id number] 06:12:00 Test Item Value Reference Range Comments TOTAL PROTEIN (BEAKER) (test code = 770) 5.5 gm/dL 6.0-8.3 ALBUMIN (BEAKER) (test code = 1145) 1.8 g/dL 3.5-5.0 BILIRUBIN TOTAL (BEAKER) (test code = 377) 1.1 mg/dL 0.2-1 .2 BILIRUBIN DIRECT (BEAKER) (test code = 706) 0.7 mg/dL 0.1- 0.5 ALKALINE PHOSPHATASE (BEAKER) (test code = 346) 157 U/L 40-150 AST (SGOT) (BEAKER) (test code = 353) 38 U/L 5-34 ALT (SGPT) (BEAKER) (test code = 347) 34 U/L 6-55 Billing Auditor ID - KENNPOCT-GLUCOSE [id number] 06:10:00 Test Item Value Reference Range Comments POC-GLUCOSE METER (BEAKER) 126 mg/dL 70-110 : HEIDI ANNIE AT [facility] [address] (test code = 1538) [place], [address]: Billing Auditor/Technic juana ID = [id number] for NORRIS MOTLEY ON CBC W/PLT COUNT & AUTO [id number] 06:07:00 Test Item Value Reference Range Comments WHITE BLOOD CELL COUNT (BEAKER) (test code = 7.1 K/ L 3.5 -10.5 775) RED BLOOD CELL COUNT (BEAKER) (test code = 761) 3.79 M/ L 4.63-6.08 HEMOGLOBIN (BEAKER) (test code = 410) 9.7 GM/DL 13.7-17.5 HEMATOCRIT (BEAKER) (test code = 411) 31.6 % 40.1-51.0 MEAN CORPUSCULAR VOLUME (BEAKER) (test code = 83.4 fL 79 .0-92.2 753) MEAN CORPUSCULAR HEMOGLOBIN (BEAKER) (test code 25.6 pg 25.7-32.2 = 751) MEAN CORPUSCULAR HEMOGLOBIN CONC (BEAKER) (test 30.7 GM/DL 32.3-36.5 code = 752) RED CELL DISTRIBUTION WIDTH (BEAKER) (test code 23.4 % 11.6-14.4 = 412) PLATELET COUNT (BEAKER) (test code = 756) 171 K/CU MM 150-45 0 MEAN PLATELET VOLUME (BEAKER) (test code = 754) 12.2 fL 9.4-12.4 NUCLEATED RED BLOOD CELLS (BEAKER) (test code = 0 /100 WBC 0-0 413) NEUTROPHILS RELATIVE PERCENT (BEAKER) (test code 56 % = 429) LYMPHOCYTES RELATIVE PERCENT (BEAKER) (test code 28 % = 430) MONOCYTES RELATIVE PERCENT (BEAKER) (test code = 13 % 431) EOSINOPHILS RELATIVE PERCENT (BEAKER) (test code 3 % = 432) BASOPHILS RELATIVE PERCENT (BEAKER) (test code = 0 % 437) NEUTROPHILS ABSOLUTE COUNT (BEAKER) (test code = 3.95 K/ L 1.78-5.38 670) LYMPHOCYTES ABSOLUTE COUNT (BEAKER) (test code = 1.96 K/ L 1.32-3.57 414) MONOCYTES ABSOLUTE COUNT (BEAKER) (test code = 0.90 K/ L 0 .30-0.82 415) EOSINOPHILS ABSOLUTE COUNT (BEAKER) (test code = 0.20 K/ L 0.04-0.54 416) BASOPHILS ABSOLUTE COUNT (BEAKER) (test code = 0.03 K/ L 0 .01-0.08 417) IMMATURE GRANULOCYTES-RELATIVE PERCENT (BEAKER) 0 % 0-1 (test code = 2801) [id number] 06:07:00 Test Item Value Reference Range Comments PHOSPHORUS (BEAKER) (test code = 604) 3.0 mg/dL 2.3-4.7 Billing Auditor ID - [id number] 06:07:00 Test Item Value Reference Range Comments MAGNESIUM (BEAKER) (test code = 627) 2.1 mg/dL 1.6-2.6 Billing Auditor ID - [id number] 05:52:00 Test Item Value Reference Range Comments PARTIAL THROMBOPLASTIN TIME (BEAKER) (test code 32.7 seconds 22.5-36.0 = 760) POCT-GLUCOSE [id number] 17:32:00 Test Item Value Reference Range Comments POC-GLUCOSE METER (BEAKER) 83 mg/dL 70-110 : HEIDI ANNIE AT [facility] [address] (test code = 1538) [place], [address]: Billing Auditor/Technic juana ID = [id number] for SHALONDA SOFIA A BODY FLUID CULTURE + GRAM [id number] 14:07:00 Test Item Value Reference Range Comments CULTURE (BEAKER) (test code = 1095) No growth GRAM STAIN RESULT (BEAKER) (test code <1+ WBCs = 1123) GRAM STAIN RESULT (BEAKER) (test code <1+ gram negative rods = 51754) POCT-GLUCOSE [id number] 12:20:00 Test Item Value Reference Range Comments POC-GLUCOSE METER (BEAKER) 84 mg/dL 70-110 : HEIDI ANNIE AT [facility] [address] (test code = 1538) [facility], [address]: Billing Auditor/Technic juana ID = [id number] for SOFIA LIZ RAD, CHEST, 1 VIEW, NON [id number] 07:44:00Reason for exam:->eval pleural effusionsShould this be performed at the bedside?->YesFINAL REPORT TECHNIQUE: Frontal view of the chest. INDICATION: 63-year-old man with pleural effusions. COMPARISON: Chest radiograph 04/11/2019. FINDINGS: LINES/TUBES: Unchanged. LUNGS/PLEURA: Increased pleural and/or airspace opacities on the right. Persistent mild patchy airspace opacities in the left lower lung zone. Persistent central pulmonary venous congestion. No pneumotho rax. HEART AND MEDIASTINUM: The cardiomediastinal silhouette is unchanged. Atherosclerotic calcifications in the thoracic aorta. SOFT TISSUES AND BONES: Unchanged median sternotomy wires. Soft tissuesare unremarkable. IMPRESSION:Worsened pleural and/or airspace opacities on the right. Otherwise, nosignificant change since 04/11/2019. Signed: Tonie Rivas Verified Date/Time: 04/12/201907:44:33 Reading Location: [address] Body Reading Room BASIC METABOLIC [id number] 06:46:00 Test Item Value Reference Range Comments SODIUM (BEAKER) (test 142 meq/L 136-145 code = 381) POTASSIUM (BEAKER) (test 3.2 meq/L 3.5-5.1 code = 379) CHLORIDE (BEAKER) (test 107 meq/L 98-107 code = 382) CO2 (BEAKER) (test code = 29 meq/L 22-29 355) BLOOD UREA NITROGEN 18 mg/dL 7-21 (BEAKER) (test code = 354) CREATININE (BEAKER) (test 0.89 mg/dL 0.57-1.25 code = 358) GLUCOSE RANDOM (BEAKER) 80 mg/dL 70-105 (test code = 652) CALCIUM (BEAKER) (test 7.4 mg/dL 8.4-10.2 code = 697) EGFR (BEAKER) (test code 86 mL/min/1.73 sq m EST IMATED GFR IS NOT = 1092) ACCURATE CREA TININE CLEARANCE IN PRE DICTING GLOMERULAR FILTR ATION RATE. ESTIMATED GFR IS NOT APPLICABLE F OR DIALYSIS PATIENT S. Billing Auditor ID - ELISSA MCBC W/PLT COUNT & AUTO [id number] 06:45:00 Test Item Value Reference Range Comments WHITE BLOOD CELL COUNT (BEAKER) (test code = 5.6 K/ L 3.5 -10.5 775) RED BLOOD CELL COUNT (BEAKER) (test code = 761) 3.39 M/ L 4.63-6.08 HEMOGLOBIN (BEAKER) (test code = 410) 8.6 GM/DL 13.7-17.5 HEMATOCRIT (BEAKER) (test code = 411) 28.2 % 40.1-51.0 MEAN CORPUSCULAR VOLUME (BEAKER) (test code = 83.2 fL 79 .0-92.2 753) MEAN CORPUSCULAR HEMOGLOBIN (BEAKER) (test code 25.4 pg 25.7-32.2 = 751) MEAN CORPUSCULAR HEMOGLOBIN CONC (BEAKER) (test 30.5 GM/DL 32.3-36.5 code = 752) RED CELL DISTRIBUTION WIDTH (BEAKER) (test code 23.5 % 11.6-14.4 = 412) PLATELET COUNT (BEAKER) (test code = 756) 171 K/CU MM 150-45 0 MEAN PLATELET VOLUME (BEAKER) (test code = 754) 12.2 fL 9.4-12.4 NUCLEATED RED BLOOD CELLS (BEAKER) (test code = 0 /100 WBC 0-0 413) NEUTROPHILS RELATIVE PERCENT (BEAKER) (test code 49 % = 429) LYMPHOCYTES RELATIVE PERCENT (BEAKER) (test code 33 % = 430) MONOCYTES RELATIVE PERCENT (BEAKER) (test code = 13 % 431) EOSINOPHILS RELATIVE PERCENT (BEAKER) (test code 5 % = 432) BASOPHILS RELATIVE PERCENT (BEAKER) (test code = 1 % 437) NEUTROPHILS ABSOLUTE COUNT (BEAKER) (test code = 2.74 K/ L 1.78-5.38 670) LYMPHOCYTES ABSOLUTE COUNT (BEAKER) (test code = 1.82 K/ L 1.32-3.57 414) MONOCYTES ABSOLUTE COUNT (BEAKER) (test code = 0.72 K/ L 0 .30-0.82 415) EOSINOPHILS ABSOLUTE COUNT (BEAKER) (test code = 0.25 K/ L 0.04-0.54 416) BASOPHILS ABSOLUTE COUNT (BEAKER) (test code = 0.03 K/ L 0 .01-0.08 417) IMMATURE GRANULOCYTES-RELATIVE PERCENT (BEAKER) 0 % 0-1 (test code = 2801) [id number] 06:45:00 Test Item Value Reference Range Comments PHOSPHORUS (BEAKER) (test code = 604) 3.8 mg/dL 2.3-4.7 Billing Auditor ID - ELISSA [id number] 06:45:00 Test Item Value Reference Range Comments MAGNESIUM (BEAKER) (test code = 627) 2.1 mg/dL 1.6-2.6 Billing Auditor ID - ELISSA MPOCT-GLUCOSE [id number] 05:33:00 Test Item Value Reference Range Comments POC-GLUCOSE METER (BEAKER) 78 mg/dL 70-110 : HEIDI JACOBS AT [address] (test code = 1538) [facility], [address]: Billing Auditor/Technic juana ID = [id number] for DESMOND MCCANN POCT-GLUCOSE [id number] 00:19:00 Test Item Value Reference Range Comments POC-GLUCOSE METER (BEAKER) 78 mg/dL 70-110 : Not ified RN/MD: TESTED AT (test code = 1538) [place] [address] [facility], [address]: Billing Auditor/ Research Intern ID = [id number] for BARI STAUFFER POCT-GLUCOSE [id number] 17:51:00 Test Item Value Reference Range Comments POC-GLUCOSE METER (BEAKER) 89 mg/dL 70-110 : HEIDI JACOBS AT [address] (test code = 1538) [facility], [address]: Billing Auditor/Technic juana ID = [id number] for RADHA CLAROS RAD, CHEST, 1 VIEW, NON [id number] 13:20:00Reason for exam:->eval pleural effusionsShould this be performed at the bedside?->YesFINAL REPORT RAD, CHEST, 1 VIEW, NON DEPT INDICATION: eval pleural effusions C OMPARISON: Prior day's exam FINDINGS: Portable frontal view of the chest. IMPRESSION: Support Lines: Feeding tube has been removed. Lungs and pleura: Unchanged airspace and pleural opacities. Pleural catheter is stable.Heart and mediastinum: Stable contours. Stable surgical changes.Additional findings: None. Signed: JR Jara Robert MDReport Verified Date/Time: 04/11/2019 13:20:58 ReadingLocation: [facility] Reading Room POCT-GLUCOSE METER 2019-04-11 12:21:00 Test Item Value Reference Range Comments POC-GLUCOSE METER (BEAKER) 82 mg/dL 70-110 : HEIDI ANNIE AT [address] (test code = 1538) [facility], [address]: Billing Auditor/Technic juana ID = [id number] for RADHA CLAROS POCT-GLUCOSE [id number] 10:51:00 Test Item Value Reference Range Comments POC-GLUCOSE METER (BEAKER) 84 mg/dL 70-110 : HEIDI ANNIE AT [address] (test code = 1538) [facility], [address]: Billing Auditor/Technic juana ID = [id number] for MKIE CHAN BASIC METABOLIC [id number] 08:47:00 Test Item Value Reference Range Comments SODIUM (BEAKER) (test 139 meq/L 136-145 code = 381) POTASSIUM (BEAKER) (test 3.2 meq/L 3.5-5.1 code = 379) CHLORIDE (BEAKER) (test 105 meq/L 98-107 code = 382) CO2 (BEAKER) (test code = 27 meq/L 22-29 355) BLOOD UREA NITROGEN 23 mg/dL 7-21 (BEAKER) (test code = 354) CREATININE (BEAKER) (test 0.88 mg/dL 0.57-1.25 code = 358) GLUCOSE RANDOM (BEAKER) 81 mg/dL 70-105 (test code = 652) CALCIUM (BEAKER) (test 7.0 mg/dL 8.4-10.2 code = 697) EGFR (BEAKER) (test code 87 mL/min/1.73 sq m EST IMATED GFR IS NOT = 1092) ACCURATE CREA TININE CLEARANCE IN PRE DICTING GLOMERULAR FILTR ATION RATE. ESTIMATED GFR IS NOT APPLICABLE F OR DIALYSIS PATIENT S. Billing Auditor ID - SONIA [id number] 08:46:00 Test Item Value Reference Range Comments PHOSPHORUS (BEAKER) (test code = 604) 3.3 mg/dL 2.3-4.7 Billing Auditor ID - SONIA [id number] 08:46:00 Test Item Value Reference Range Comments MAGNESIUM (BEAKER) (test code = 627) 2.2 mg/dL 1.6-2.6 Billing Auditor ID - SONIA FPOCT-GLUCOSE [id number] 07:13:00 Test Item Value Reference Range Comments POC-GLUCOSE METER (BEAKER) 84 mg/dL 70-110 : HEIDI ANNIE [facility] [address] [facility] (test code = 1538[facility] [place], [address]: Billing Auditor/Technic juana ID = [id number] for PAZ DERAS CBC W/PLT COUNT & AUTO [id number] 06:26:00 Test Item Value Reference Range Comments WHITE BLOOD CELL COUNT (BEAKER) (test code = 5.6 K/ L 3.5 -10.5 775) RED BLOOD CELL COUNT (BEAKER) (test code = 761) 3.50 M/ L 4.63-6.08 HEMOGLOBIN (BEAKER) (test code = 410) 9.0 GM/DL 13.7-17.5 HEMATOCRIT (BEAKER) (test code = 411) 29.0 % 40.1-51.0 MEAN CORPUSCULAR VOLUME (BEAKER) (test code = 82.9 fL 79 .0-92.2 753) MEAN CORPUSCULAR HEMOGLOBIN (BEAKER) (test code 25.7 pg 25.7-32.2 = 751) MEAN CORPUSCULAR HEMOGLOBIN CONC (BEAKER) (test 31.0 GM/DL 32.3-36.5 code = 752) RED CELL DISTRIBUTION WIDTH (BEAKER) (test code 23.6 % 11.6-14.4 = 412) PLATELET COUNT (BEAKER) (test code = 756) 153 K/CU MM 150-45 0 MEAN PLATELET VOLUME (BEAKER) (test code = 754) 12.0 fL 9.4-12.4 NUCLEATED RED BLOOD CELLS (BEAKER) (test code = 0 /100 WBC 0-0 413) NEUTROPHILS RELATIVE PERCENT (BEAKER) (test code 45 % = 429) LYMPHOCYTES RELATIVE PERCENT (BEAKER) (test code 38 % = 430) MONOCYTES RELATIVE PERCENT (BEAKER) (test code = 11 % 431) EOSINOPHILS RELATIVE PERCENT (BEAKER) (test code 5 % = 432) BASOPHILS RELATIVE PERCENT (BEAKER) (test code = 1 % 437) NEUTROPHILS ABSOLUTE COUNT (BEAKER) (test code = 2.52 K/ L 1.78-5.38 670) LYMPHOCYTES ABSOLUTE COUNT (BEAKER) (test code = 2.15 K/ L 1.32-3.57 414) MONOCYTES ABSOLUTE COUNT (BEAKER) (test code = 0.64 K/ L 0 .30-0.82 415) EOSINOPHILS ABSOLUTE COUNT (BEAKER) (test code = 0.28 K/ L 0.04-0.54 416) BASOPHILS ABSOLUTE COUNT (BEAKER) (test code = 0.03 K/ L 0 .01-0.08 417) IMMATURE GRANULOCYTES-RELATIVE PERCENT (BEAKER) 0 % 0-1 (test code = 2801) PROTHROMBIN TIME/[id number] 06:22:00 Test Item Value Reference Range Comments PROTIME (BEAKER) (test code = 759) 14.4 seconds 11.9-14.2 INR (BEAKER) (test code = 370) 1.2 <=5.9 Effective 07/24/2018: PT Reference Range ChangeNew: 11.9-14.2 Previous: 11.7- 14.7RECOMMENDED COUMADIN/WARFARIN INR THERAPY RANGESSTANDARD DOSE: 2.0-3.0 Includes: PROPHYLAXIS for venous thrombosis, systemic embolization; TREATMENT for venous thrombosis and/or pulmonary embolus.HIGH RISK: Target INR is2.5-3.5 for patients wiht mechanical heart valves.POCT-GLUCOSE [id number] 00:28:00 Test Item Value Reference Range Comments POC-GLUCOSE METER (BEAKER) 97 mg/dL 70-110 : HEIDI JACOBS AT [facility] [address], [place] (test code = 1538) [facility], [address] [facility]: Billing Auditor/Technic juana ID = [id number] for PAZ DERAS POCT-GLUCOSE [id number] 15:14:00 Test Item Value Reference Range Comments POC-GLUCOSE METER (BEAKER) 97 mg/dL 70-110 : HEIDI JACOBS AT [facility] [address], [place] (test code = 1538) [facility], [address]: Billing Auditor/Technic juana ID = [id number] for TERESA CORTEZ RAD, CHEST, 1 VIEW, NON [id number] 09:36:00Reason for exam:->eval pleural effusionsShould this be performed at the bedside?->YesFINAL REPORT RAD, CHEST, 1 VIEW, NON DEPT INDICATION: eval pleural effusions C OMPARISON: Prior day's exam FINDINGS: Portable frontal view of the chest. IMPRESSION: Support Lines: Visible portions of the feeding tube are intact. Lungs and pleura: Stable large right and small left pleural effusion superimposed over interstitial congestion. No pneumothorax.Heart and mediastinum: Stable contours. Stable surgical changes.Additional findings: None. Signed: JR Jara Robert MDReport Verified Date/Time: 04/10/2019 09:36:48 Reading Location: [facility] Radiology ReadingRoom BASIC METABOLIC PANEL 2019-04-10 06:20:00 Test Item Value Reference Range Comments SODIUM (BEAKER) (test 140 meq/L 136-145 code = 381) POTASSIUM (BEAKER) (test 3.5 meq/L 3.5-5.1 code = 379) CHLORIDE (BEAKER) (test 106 meq/L 98-107 code = 382) CO2 (BEAKER) (test code = 31 meq/L 22-29 355) BLOOD UREA NITROGEN 25 mg/dL 7-21 (BEAKER) (test code = 354) CREATININE (BEAKER) (test 0.80 mg/dL 0.57-1.25 code = 358) GLUCOSE RANDOM (BEAKER) 113 mg/dL 70-105 (test code = 652) CALCIUM (BEAKER) (test 7.2 mg/dL 8.4-10.2 code = 697) EGFR (BEAKER) (test code 97 mL/min/1.73 sq m EST IMATED GFR IS NOT = 1092) ACCURATE CREA TININE CLEARANCE IN PRE DICTING GLOMERULAR FILTR ATION RATE. ESTIMATED GFR IS NOT APPLICABLE F OR DIALYSIS PATIENT S. Billing Auditor ID - [id number] 06:06:00 Test Item Value Reference Range Comments PHOSPHORUS (BEAKER) (test code = 604) 3.7 mg/dL 2.3-4.7 Billing Auditor ID - [id number] 06:06:00 Test Item Value Reference Range Comments MAGNESIUM (BEAKER) (test code = 627) 2.0 mg/dL 1.6-2.6 Billing Auditor ID - LACBC W/PLT COUNT & AUTO [id number] 05:54:00 Test Item Value Reference Range Comments WHITE BLOOD CELL COUNT (BEAKER) (test code = 5.8 K/ L 3.5 -10.5 775) RED BLOOD CELL COUNT (BEAKER) (test code = 761) 3.55 M/ L 4.63-6.08 HEMOGLOBIN (BEAKER) (test code = 410) 9.1 GM/DL 13.7-17.5 HEMATOCRIT (BEAKER) (test code = 411) 29.4 % 40.1-51.0 MEAN CORPUSCULAR VOLUME (BEAKER) (test code = 82.8 fL 79 .0-92.2 753) MEAN CORPUSCULAR HEMOGLOBIN (BEAKER) (test code 25.6 pg 25.7-32.2 = 751) MEAN CORPUSCULAR HEMOGLOBIN CONC (BEAKER) (test 31.0 GM/DL 32.3-36.5 code = 752) RED CELL DISTRIBUTION WIDTH (BEAKER) (test code 23.8 % 11.6-14.4 = 412) PLATELET COUNT (BEAKER) (test code = 756) 161 K/CU MM 150-45 0 MEAN PLATELET VOLUME (BEAKER) (test code = 754) 11.8 fL 9.4-12.4 NUCLEATED RED BLOOD CELLS (BEAKER) (test code = 0 /100 WBC 0-0 413) NEUTROPHILS RELATIVE PERCENT (BEAKER) (test code 48 % = 429) LYMPHOCYTES RELATIVE PERCENT (BEAKER) (test code 35 % = 430) MONOCYTES RELATIVE PERCENT (BEAKER) (test code = 12 % 431) EOSINOPHILS RELATIVE PERCENT (BEAKER) (test code 4 % = 432) BASOPHILS RELATIVE PERCENT (BEAKER) (test code = 0 % 437) NEUTROPHILS ABSOLUTE COUNT (BEAKER) (test code = 2.79 K/ L 1.78-5.38 670) LYMPHOCYTES ABSOLUTE COUNT (BEAKER) (test code = 2.02 K/ L 1.32-3.57 414) MONOCYTES ABSOLUTE COUNT (BEAKER) (test code = 0.70 K/ L 0 .30-0.82 415) EOSINOPHILS ABSOLUTE COUNT (BEAKER) (test code = 0.24 K/ L 0.04-0.54 416) BASOPHILS ABSOLUTE COUNT (BEAKER) (test code = 0.02 K/ L 0 .01-0.08 417) IMMATURE GRANULOCYTES-RELATIVE PERCENT (BEAKER) 0 % 0-1 (test code = 2801) POCT-GLUCOSE [id number] 00:49:00 Test Item Value Reference Range Comments POC-GLUCOSE METER (BEAKER) 113 mg/dL 70-110 : HEIDI ANNIE AT [address] (test code = 1538) [facility], [address]: Billing Auditor/Technic juana ID = [id number] for MANUEL COLLADO POCT-GLUCOSE [id number] 17:50:00 Test Item Value Reference Range Comments POC-GLUCOSE METER (BEAKER) 86 mg/dL 70-110 : HEIDI ANNIE AT [address] (test code = 1538) [facility], [address]: Billing Auditor/Technic juana ID = [id number] for SHALONDA, NAD A FL, ESOPH, SWALLOW FUNCTION, WITH CINE OR [id number] 16:22:00Reason for exam:->dysphagia, on TFsFINAL REPORT Modified [...] minutes Number of images: 8 Signed: Nova Salazareport Verified Date/Time: 04/09/2019 16:22:18 Reading Location: [facility] Radiology Reading Room POCT-GLUCOSE [id number] 12:00:00 Test Item Value Reference Range Comments POC-GLUCOSE METER (BEAKER) 97 mg/dL 70-110 : HEIDI ANNIE AT [address] (test code = 1538) [facility], [address]: Billing Auditor/Technic juana ID = [id number] for GARCIA, PRISCILLA POCT-GLUCOSE [id number] 09:53:00 Test Item Value Reference Range Comments POC-GLUCOSE METER (BEAKER) 102 mg/dL 70-110 : HEIDI ANNIE AT [address] (test code = 1538) [facility], [address]: Billing Auditor/Technic juana ID = [id number] for GARCIA, PRISCILLA RAD, CHEST, 1 VIEW, NON [id number] 07:20:00Reason for exam:->eval pleural effusionsShould this be performed at the bedside?->YesFINAL REPORT RAD, CHEST, 1 VIEW, NON DEPT INDICATION: eval pleural effusions C OMPARISON: Prior day's exam FINDINGS: Portable frontal view of the chest. IMPRESSION: Support Lines: Feeding tube is intact where visible. Right pigtail catheter demonstrates unchanged position.Lungs and pleura: Persistent coarsened interstitial markings. Trace left and moderate to large right effusions. No pneumothorax.Heart and mediastinum: Stable contours. Stable surgical changes.Additional findings: None. Signed: JR Jara Robert MDReport Verified Date/Time: 04/09/2019 07:20:55 Reading Location: [facility] Radiology Reading Room Electronically signed by: CHRISTIE Piña 04/09/2019 07:20 [id number] 06:48:00 Test Item Value Reference Range Comments PHOSPHORUS (BEAKER) (test code = 604) 2.8 mg/dL 2.3-4.7 Billing Auditor ID - [id number] 06:48:00 Test Item Value Reference Range Comments MAGNESIUM (BEAKER) (test code = 627) 1.8 mg/dL 1.6-2.6 Billing Auditor ID - VIRGINIEAPBASIC METABOLIC [id number] 06:48:00 Test Item Value Reference Range Comments SODIUM (BEAKER) (test 141 meq/L 136-145 code = 381) POTASSIUM (BEAKER) (test 3.3 meq/L 3.5-5.1 code = 379) CHLORIDE (BEAKER) (test 106 meq/L 98-107 code = 382) CO2 (BEAKER) (test code = 31 meq/L 22-29 355) BLOOD UREA NITROGEN 27 mg/dL 7-21 (BEAKER) (test code = 354) CREATININE (BEAKER) (test 0.73 mg/dL 0.57-1.25 code = 358) GLUCOSE RANDOM (BEAKER) 85 mg/dL 70-105 (test code = 652) CALCIUM (BEAKER) (test 7.2 mg/dL 8.4-10.2 code = 697) EGFR (BEAKER) (test code 108 mL/min/1.73 sq m ES TIMATED GFR IS NOT = 1092) ACCURATE CREA TININE CLEARANCE IN PRE DICTING GLOMERULAR FILTR ATION RATE. ESTIMATED GFR IS NOT APPLICABLE F OR DIALYSIS PATIENT S. Billing Auditor ID - GALAPCBC W/PLT COUNT & AUTO [id number] 06:39:00 Test Item Value Reference Range Comments WHITE BLOOD CELL COUNT (BEAKER) (test code = 7.0 K/ L 3.5 -10.5 775) RED BLOOD CELL COUNT (BEAKER) (test code = 761) 3.87 M/ L 4.63-6.08 HEMOGLOBIN (BEAKER) (test code = 410) 9.6 GM/DL 13.7-17.5 HEMATOCRIT (BEAKER) (test code = 411) 32.3 % 40.1-51.0 MEAN CORPUSCULAR VOLUME (BEAKER) (test code = 83.5 fL 79 .0-92.2 753) MEAN CORPUSCULAR HEMOGLOBIN (BEAKER) (test code 24.8 pg 25.7-32.2 = 751) MEAN CORPUSCULAR HEMOGLOBIN CONC (BEAKER) (test 29.7 GM/DL 32.3-36.5 code = 752) RED CELL DISTRIBUTION WIDTH (BEAKER) (test code 24.4 % 11.6-14.4 = 412) PLATELET COUNT (BEAKER) (test code = 756) 183 K/CU MM 150-45 0 MEAN PLATELET VOLUME (BEAKER) (test code = 754) 12.0 fL 9.4-12.4 NUCLEATED RED BLOOD CELLS (BEAKER) (test code = 0 /100 WBC 0-0 413) NEUTROPHILS RELATIVE PERCENT (BEAKER) (test code 42 % = 429) LYMPHOCYTES RELATIVE PERCENT (BEAKER) (test code 39 % = 430) MONOCYTES RELATIVE PERCENT (BEAKER) (test code = 13 % 431) EOSINOPHILS RELATIVE PERCENT (BEAKER) (test code 6 % = 432) BASOPHILS RELATIVE PERCENT (BEAKER) (test code = 0 % 437) NEUTROPHILS ABSOLUTE COUNT (BEAKER) (test code = 2.91 K/ L 1.78-5.38 670) LYMPHOCYTES ABSOLUTE COUNT (BEAKER) (test code = 2.73 K/ L 1.32-3.57 414) MONOCYTES ABSOLUTE COUNT (BEAKER) (test code = 0.88 K/ L 0 .30-0.82 415) EOSINOPHILS ABSOLUTE COUNT (BEAKER) (test code = 0.41 K/ L 0.04-0.54 416) BASOPHILS ABSOLUTE COUNT (BEAKER) (test code = 0.03 K/ L 0 .01-0.08 417) IMMATURE GRANULOCYTES-RELATIVE PERCENT (BEAKER) 0 % 0-1 (test code = 2801) POCT-GLUCOSE [id number] 06:29:00 Test Item Value Reference Range Comments POC-GLUCOSE METER (BEAKER) 70 mg/dL 70-110 : HEIDI ANNIE AT [address] (test code = 1538) [facility], [address]: Billing Auditor/Technic juana ID = [id number] for SHANON HENSON POCT-GLUCOSE [id number] 05:40:00 Test Item Value Reference Range Comments POC-GLUCOSE METER (BEAKER) 90 mg/dL 70-110 : HEIDI ANNIE AT [place] [id number] [facility] [place] (test code = 1538) [facility], [address]: Billing Auditor/Technic juana ID = [id number] for KENNY GARCIA POCT-GLUCOSE [id number] 17:57:00 Test Item Value Reference Range Comments POC-GLUCOSE METER (BEAKER) 90 mg/dL 70-110 : HEIDI JACOBS AT [facility] [address] [facility] [place] (test code = 1538) [facility], [address]: Billing Auditor/Technic juana ID = [id number] for SOFIA LIZ POCT-GLUCOSE [id number] 12:47:00 Test Item Value Reference Range Comments POC-GLUCOSE METER (BEAKER) 97 mg/dL 70-110 : HEIDI JACOBS AT [address] (test code = 1538) [facility], [address]: Billing Auditor/Technic juana ID = [id number] for TERESA CORTEZ RAD, CHEST, 1 VIEW, NON [id number] 07:33:00Reason for exam:->eval pleural effusionsShould this be performed at the bedside?->YesFINAL REPORT RAD, CHEST, 1 VIEW, NON DEPT INDICATION: eval pleural effusions C OMPARISON: Prior day's exam FINDINGS: Portable frontal view of the chest. IMPRESSION: Support Lines: The feeding tube is intact where visible. Lungs and pleura: Increasing right effusion. Persistentbilateral interstitial congestion. Trace left effusion. No pneumothorax.Heart and mediastinum: Stable contours. Stable surgical changes.Additional findings: None. Signed: JR Jara Robert MDReport Verified Date/Time: 04/08/2019 07:33:22 Reading Location: [facility] Radiology Reading Room POCT-GLUCOSE [id number] 05:33:00 Test Item Value Reference Range Comments POC-GLUCOSE METER (BEAKER) 97 mg/dL 70-110 : HEIDI JACOBS AT [address] (test code = 1538) [facility], [address]: Billing Auditor/Technic juana ID = [id number] for BIANKA GASTELUM LUCRECIA BASIC METABOLIC [id number] 05:33:00 Test Item Value Reference Range Comments SODIUM (BEAKER) (test 145 meq/L 136-145 code = 381) POTASSIUM (BEAKER) (test 3.5 meq/L 3.5-5.1 code = 379) CHLORIDE (BEAKER) (test 110 meq/L 98-107 code = 382) CO2 (BEAKER) (test code = 32 meq/L 22-29 355) BLOOD UREA NITROGEN 28 mg/dL 7-21 (BEAKER) (test code = 354) CREATININE (BEAKER) (test 0.76 mg/dL 0.57-1.25 code = 358) GLUCOSE RANDOM (BEAKER) 97 mg/dL 70-105 (test code = 652) CALCIUM (BEAKER) (test 7.5 mg/dL 8.4-10.2 code = 697) EGFR (BEAKER) (test code 103 mL/min/1.73 sq m ES TIMATED GFR IS NOT = 1092) ACCURATE CREA TININE CLEARANCE IN PRE DICTING GLOMERULAR FILTR ATION RATE. ESTIMATED GFR IS NOT APPLICABLE F OR DIALYSIS PATIENT S. Billing Auditor ID - [id number] 05:16:00 Test Item Value Reference Range Comments PHOSPHORUS (BEAKER) (test code = 604) 2.5 mg/dL 2.3-4.7 Billing Auditor ID - [id number] 05:16:00 Test Item Value Reference Range Comments MAGNESIUM (BEAKER) (test code = 627) 1.9 mg/dL 1.6-2.6 Billing Auditor ID - GALAPCBC W/PLT COUNT & AUTO [id number] 05:10:00 Test Item Value Reference Range Comments WHITE BLOOD CELL COUNT (BEAKER) (test code = 6.8 K/ L 3.5 -10.5 775) RED BLOOD CELL COUNT (BEAKER) (test code = 761) 4.00 M/ L 4.63-6.08 HEMOGLOBIN (BEAKER) (test code = 410) 9.9 GM/DL 13.7-17.5 HEMATOCRIT (BEAKER) (test code = 411) 34.3 % 40.1-51.0 MEAN CORPUSCULAR VOLUME (BEAKER) (test code = 85.8 fL 79 .0-92.2 753) MEAN CORPUSCULAR HEMOGLOBIN (BEAKER) (test code 24.8 pg 25.7-32.2 = 751) MEAN CORPUSCULAR HEMOGLOBIN CONC (BEAKER) (test 28.9 GM/DL 32.3-36.5 code = 752) RED CELL DISTRIBUTION WIDTH (BEAKER) (test code 25.2 % 11.6-14.4 = 412) PLATELET COUNT (BEAKER) (test code = 756) 190 K/CU MM 150-45 0 MEAN PLATELET VOLUME (BEAKER) (test code = 754) 11.8 fL 9.4-12.4 NUCLEATED RED BLOOD CELLS (BEAKER) (test code = 0 /100 WBC 0-0 413) NEUTROPHILS RELATIVE PERCENT (BEAKER) (test code 44 % = 429) LYMPHOCYTES RELATIVE PERCENT (BEAKER) (test code 36 % = 430) MONOCYTES RELATIVE PERCENT (BEAKER) (test code = 13 % 431) EOSINOPHILS RELATIVE PERCENT (BEAKER) (test code 7 % = 432) BASOPHILS RELATIVE PERCENT (BEAKER) (test code = 0 % 437) NEUTROPHILS ABSOLUTE COUNT (BEAKER) (test code = 2.97 K/ L 1.78-5.38 670) LYMPHOCYTES ABSOLUTE COUNT (BEAKER) (test code = 2.40 K/ L 1.32-3.57 414) MONOCYTES ABSOLUTE COUNT (BEAKER) (test code = 0.87 K/ L 0 .30-0.82 415) EOSINOPHILS ABSOLUTE COUNT (BEAKER) (test code = 0.48 K/ L 0.04-0.54 416) BASOPHILS ABSOLUTE COUNT (BEAKER) (test code = 0.02 K/ L 0 .01-0.08 417) IMMATURE GRANULOCYTES-RELATIVE PERCENT (BEAKER) 0 % 0-1 (test code = 2801) POCT-GLUCOSE [id number] 00:34:00 Test Item Value Reference Range Comments POC-GLUCOSE METER (BEAKER) 111 mg/dL 70-110 : HEIDI ANNIE AT [facility] [address] [facility] [place] (test code = 1538) [place], [address]: Billing Auditor/Technic juana ID = [id number] for BIANKA GASTELUM LUCRECIA BASIC METABOLIC [id number] 18:38:00 Test Item Value Reference Range Comments SODIUM (BEAKER) (test 150 meq/L 136-145 code = 381) POTASSIUM (BEAKER) (test 3.7 meq/L 3.5-5.1 Specime n slightly code = 379) hemolyzed CHLORIDE (BEAKER) (test 113 meq/L 98-107 code = 382) CO2 (BEAKER) (test code = 34 meq/L 22-29 355) BLOOD UREA NITROGEN 30 mg/dL 7-21 (BEAKER) (test code = 354) CREATININE (BEAKER) (test 0.81 mg/dL 0.57-1.25 Specim en slightly code = 358) hemolyzed GLUCOSE RANDOM (BEAKER) 100 mg/dL 70-105 (test code = 652) CALCIUM (BEAKER) (test 7.8 mg/dL 8.4-10.2 code = 697) EGFR (BEAKER) (test code 96 mL/min/1.73 sq m EST IMATED GFR IS NOT = 1092) ACCURATE CREA TININE CLEARANCE IN PRE DICTING GLOMERULAR FILTR ATION RATE. ESTIMATED GFR IS NOT APPLICABLE F OR DIALYSIS PATIENT S. Billing Auditor ID - BSPOCT-GLUCOSE [id number] 17:48:00 Test Item Value Reference Range Comments POC-GLUCOSE METER (BEAKER) 113 mg/dL 70-110 : HEIDI ANNIE AT [facility] [address] [facility] [place] (test code = 1538) [facility], [address]: Billing Auditor/Technic juana ID = [id number] for STOMILADYSIC, NAD A FUNGUS CULTURE + [id number] 17:33:00 Test Item Value Reference Range Comments CULTURE (BEAKER) (test Same orga nism has been isolated code = 1095) from cultures(s) of the same body site and co llection date. Repeat identific ation and susceptibility t esting performed only a fter consultation wit h the clinical microbiology lab oratory. FUNGUS SMEAR (BEAKER) No fungi seen (test code = 1406) Refer to previous culture of Ana albicansPOCT-GLUCOSE [id number] 11:47:00 Test Item Value Reference Range Comments POC-GLUCOSE METER (BEAKER) 102 mg/dL 70-110 : HEIDI ANNIE AT [facility] [address] [facility] [place] (test code = 1538) [facility], [address]: Billing Auditor/Technic juana ID = [id number] for STOJCIC, NAD A RAD, CHEST, 1 VIEW, NON [id number] 11:26:00Reason for exam:->S/p L chest tube removalFINAL [...] MDReport Verified Date/Time: 04/07/2019 11:26:55 Reading Location: [facility] Radiology Reading Room RAD, CHEST, 1 VIEW, NON [id number] 10:15:00Reason for exam:->eval pleural effusionsShould this be performed [...] JR Jara Robert MDReport Verified Date/Time: 04/07/2019 10:15:23 Reading Location: [facility] Radiology Reading Room 10:15 [id number] 08:15:00 Test Item Value Reference Range Comments PHOSPHORUS (BEAKER) (test code = 604) 3.3 mg/dL 2.3-4.7 Billing Auditor ID - PHILIP [id number] 08:15:00 Test Item Value Reference Range Comments MAGNESIUM (BEAKER) (test code = 627) 2.0 mg/dL 1.6-2.6 Billing Auditor ID - PHILIP CBASIC METABOLIC [id number] 08:15:00 Test Item Value Reference Range Comments SODIUM (BEAKER) (test 151 meq/L 136-145 code = 381) POTASSIUM (BEAKER) (test 4.1 meq/L 3.5-5.1 code = 379) CHLORIDE (BEAKER) (test 114 meq/L 98-107 code = 382) CO2 (BEAKER) (test code = 33 meq/L 22-29 355) BLOOD UREA NITROGEN 31 mg/dL 7-21 (BEAKER) (test code = 354) CREATININE (BEAKER) (test 0.80 mg/dL 0.57-1.25 code = 358) GLUCOSE RANDOM (BEAKER) 77 mg/dL 70-105 (test code = 652) CALCIUM (BEAKER) (test 8.1 mg/dL 8.4-10.2 code = 697) EGFR (BEAKER) (test code 97 mL/min/1.73 sq m EST IMATED GFR IS NOT = 1092) ACCURATE CREA TININE CLEARANCE IN PRE DICTING GLOMERULAR FILTR ATION RATE. ESTIMATED GFR IS NOT APPLICABLE F OR DIALYSIS PATIENT S. Billing Auditor - PHILIP CCBC W/PLT COUNT & AUTO [id number] 07:40:00 Test Item Value Reference Range Comments WHITE BLOOD CELL COUNT (BEAKER) (test code = 6.7 K/ L 3.5 -10.5 775) RED BLOOD CELL COUNT (BEAKER) (test code = 761) 4.01 M/ L 4.63-6.08 HEMOGLOBIN (BEAKER) (test code = 410) 10.1 GM/DL 13.7-17.5 HEMATOCRIT (BEAKER) (test code = 411) 35.0 % 40.1-51.0 MEAN CORPUSCULAR VOLUME (BEAKER) (test code = 87.3 fL 79 .0-92.2 753) MEAN CORPUSCULAR HEMOGLOBIN (BEAKER) (test code 25.2 pg 25.7-32.2 = 751) MEAN CORPUSCULAR HEMOGLOBIN CONC (BEAKER) (test 28.9 GM/DL 32.3-36.5 code = 752) RED CELL DISTRIBUTION WIDTH (BEAKER) (test code 26.0 % 11.6-14.4 = 412) PLATELET COUNT (BEAKER) (test code = 756) 209 K/CU MM 150-45 0 MEAN PLATELET VOLUME (BEAKER) (test code = 754) 12.0 fL 9.4-12.4 NUCLEATED RED BLOOD CELLS (BEAKER) (test code = 0 /100 WBC 0-0 413) NEUTROPHILS RELATIVE PERCENT (BEAKER) (test code 45 % = 429) LYMPHOCYTES RELATIVE PERCENT (BEAKER) (test code 31 % = 430) MONOCYTES RELATIVE PERCENT (BEAKER) (test code = 15 % 431) EOSINOPHILS RELATIVE PERCENT (BEAKER) (test code 8 % = 432) BASOPHILS RELATIVE PERCENT (BEAKER) (test code = 1 % 437) NEUTROPHILS ABSOLUTE COUNT (BEAKER) (test code = 3.00 K/ L 1.78-5.38 670) LYMPHOCYTES ABSOLUTE COUNT (BEAKER) (test code = 2.08 K/ L 1.32-3.57 414) MONOCYTES ABSOLUTE COUNT (BEAKER) (test code = 0.98 K/ L 0 .30-0.82 415) EOSINOPHILS ABSOLUTE COUNT (BEAKER) (test code = 0.55 K/ L 0.04-0.54 416) BASOPHILS ABSOLUTE COUNT (BEAKER) (test code = 0.03 K/ L 0 .01-0.08 417) IMMATURE GRANULOCYTES-RELATIVE PERCENT (BEAKER) 0 % 0-1 (test code = 2801) POCT-GLUCOSE [id number] 06:50:00 Test Item Value Reference Range Comments POC-GLUCOSE METER (BEAKER) 92 mg/dL 70-110 : HEIDI ANNIE AT [address] (test code = 1538) [facility], [address]: Billing Auditor/Technic juana ID = [id number] for ORIANA, BIANKA IA POCT-GLUCOSE [id number] 00:17:00 Test Item Value Reference Range Comments POC-GLUCOSE METER (BEAKER) 109 mg/dL 70-110 : HEIDI ANNIE AT [address] (test code = 1538) [facility], [address]: Billing Auditor/Technic juana ID = [id number] for ORIANA, BIANKA [place] POCT-GLUCOSE [id number] 18:05:00 Test Item Value Reference Range Comments POC-GLUCOSE METER (BEAKER) 100 mg/dL 70-110 : HEIDI ANNIE AT [address] (test code = 1538) [facility], [address]: Billing Auditor/Technic juana ID = [id number] for PHILIP LARSON POCT-GLUCOSE [id number] 18:05:00 Test Item Value Reference Range Comments POC-GLUCOSE METER (BEAKER) 90 mg/dL 70-110 : HEIDI ANNIE AT [facility] [address] (test code = 1538) [place], [address]: Billing Auditor/Technic juana ID = [id number] for SHAILESH ELLINGTON BASIC METABOLIC [id number] 17:33:00 Test Item Value Reference Range Comments SODIUM (BEAKER) (test 151 meq/L 136-145 code = 381) POTASSIUM (BEAKER) (test 3.3 meq/L 3.5-5.1 code = 379) CHLORIDE (BEAKER) (test 112 meq/L 98-107 code = 382) CO2 (BEAKER) (test code = 36 meq/L 22-29 355) BLOOD UREA NITROGEN 30 mg/dL 7-21 (BEAKER) (test code = 354) CREATININE (BEAKER) (test 0.85 mg/dL 0.57-1.25 code = 358) GLUCOSE RANDOM (BEAKER) 102 mg/dL 70-105 (test code = 652) CALCIUM (BEAKER) (test 8.0 mg/dL 8.4-10.2 code = 697) EGFR (BEAKER) (test code 91 mL/min/1.73 sq m EST IMATED GFR IS NOT = 1092) ACCURATE CREA TININE CLEARANCE IN PRE DICTING GLOMERULAR FILTR ATION RATE. ESTIMATED GFR IS NOT APPLICABLE F OR DIALYSIS PATIENT S. Billing Auditor ID - ALMA MITCHELL, CHEST, 1 VIEW, NON [id number] 08:21:00Reason for exam:->eval pleural effusionsShould this be performed at the bedside?->Yes FINAL REPORT RAD, CHEST, 1 VIEW, NON DEPT CLINICAL INDICATION: eval pleural effusions TECHNIQUE: AP view of the chest COMPARISON: Radiograph 04/05/2019 FINDINGS: Support devices are unchanged. Persistent small to moderate right pleural effusion and trace left pleural effusion, not significantly changed. No new focal consolidation or pneumothorax. Cardiomediastinal silhouette, ana lilia, and pulmonary vasculature are unchanged. IMPRESSION:No significant interval change. Signed: Simran Rajan Verified Date/Time: 04/06/2019 08:21:47 [id number] 07:38:00 Test Item Value Reference Range Comments PHOSPHORUS (BEAKER) (test code = 604) 3.7 mg/dL 2.3-4.7 Billing Auditor ID Sultana SCOTT [id number] 07:38:00 Test Item Value Reference Range Comments MAGNESIUM (BEAKER) (test code = 627) 2.1 mg/dL 1.6-2.6 Billing Auditor ID Sultana SCOTT FBASIC METABOLIC [id number] 07:38:00 Test Item Value Reference Range Comments SODIUM (BEAKER) (test 150 meq/L 136-145 code = 381) POTASSIUM (BEAKER) (test 3.6 meq/L 3.5-5.1 code = 379) CHLORIDE (BEAKER) (test 114 meq/L 98-107 code = 382) CO2 (BEAKER) (test code = 32 meq/L 22-29 355) BLOOD UREA NITROGEN 31 mg/dL 7-21 (BEAKER) (test code = 354) CREATININE (BEAKER) (test 0.88 mg/dL 0.57-1.25 code = 358) GLUCOSE RANDOM (BEAKER) 88 mg/dL 70-105 (test code = 652) CALCIUM (BEAKER) (test 8.1 mg/dL 8.4-10.2 code = 697) EGFR (BEAKER) (test code 87 mL/min/1.73 sq m EST IMATED GFR IS NOT = 1092) ACCURATE CREA TININE CLEARANCE IN PRE DICTING GLOMERULAR FILTR ATION RATE. ESTIMATED GFR IS NOT APPLICABLE F OR DIALYSIS PATIENT S. Billing Auditor ANGELI SCOTT FCBC W/PLT COUNT & AUTO [id number] 07:35:00 Test Item Value Reference Range Comments WHITE BLOOD CELL COUNT (BEAKER) (test code = 7.0 K/ L 3.5 -10.5 775) RED BLOOD CELL COUNT (BEAKER) (test code = 761) 3.98 M/ L 4.63-6.08 HEMOGLOBIN (BEAKER) (test code = 410) 9.9 GM/DL 13.7-17.5 HEMATOCRIT (BEAKER) (test code = 411) 34.3 % 40.1-51.0 MEAN CORPUSCULAR VOLUME (BEAKER) (test code = 86.2 fL 79 .0-92.2 753) MEAN CORPUSCULAR HEMOGLOBIN (BEAKER) (test code 24.9 pg 25.7-32.2 = 751) MEAN CORPUSCULAR HEMOGLOBIN CONC (BEAKER) (test 28.9 GM/DL 32.3-36.5 code = 752) RED CELL DISTRIBUTION WIDTH (BEAKER) (test code 26.5 % 11.6-14.4 = 412) PLATELET COUNT (BEAKER) (test code = 756) 212 K/CU MM 150-45 0 MEAN PLATELET VOLUME (BEAKER) (test code = 754) 11.4 fL 9.4-12.4 NUCLEATED RED BLOOD CELLS (BEAKER) (test code = 0 /100 WBC 0-0 413) NEUTROPHILS RELATIVE PERCENT (BEAKER) (test code 49 % = 429) LYMPHOCYTES RELATIVE PERCENT (BEAKER) (test code 31 % = 430) MONOCYTES RELATIVE PERCENT (BEAKER) (test code = 12 % 431) EOSINOPHILS RELATIVE PERCENT (BEAKER) (test code 8 % = 432) BASOPHILS RELATIVE PERCENT (BEAKER) (test code = 0 % 437) NEUTROPHILS ABSOLUTE COUNT (BEAKER) (test code = 3.41 K/ L 1.78-5.38 670) LYMPHOCYTES ABSOLUTE COUNT (BEAKER) (test code = 2.14 K/ L 1.32-3.57 414) MONOCYTES ABSOLUTE COUNT (BEAKER) (test code = 0.86 K/ L 0 .30-0.82 415) EOSINOPHILS ABSOLUTE COUNT (BEAKER) (test code = 0.53 K/ L 0.04-0.54 416) BASOPHILS ABSOLUTE COUNT (BEAKER) (test code = 0.02 K/ L 0 .01-0.08 417) IMMATURE GRANULOCYTES-RELATIVE PERCENT (BEAKER) 0 % 0-1 (test code = 2801) POCT-GLUCOSE [id number] 05:27:00 Test Item Value Reference Range Comments POC-GLUCOSE METER (BEAKER) 89 mg/dL 70-110 : HEID[facility] ANN[facility] [address] [facility] (test code = 1538) [facility] [address]: Billing Auditor/Technic juana ID = [id number] for BONY VILLATORO [facility] [employer] [id number] 17:09:00 Test Item Value Reference Range Comments SODIUM (BEAKER) (test 152 meq/L 136-145 code = 381) POTASSIUM (BEAKER) (test 3.5 meq/L 3.5-5.1 code = 379) CHLORIDE (BEAKER) (test 114 meq/L 98-107 code = 382) CO2 (BEAKER) (test code = 34 meq/L 22-29 355) BLOOD UREA NITROGEN 32 mg/dL 7-21 (BEAKER) (test code = 354) CREATININE (BEAKER) (test 0.79 mg/dL 0.57-1.25 code = 358) GLUCOSE RANDOM (BEAKER) 85 mg/dL 70-105 (test code = 652) CALCIUM (BEAKER) (test 8.1 mg/dL 8.4-10.2 code = 697) EGFR (BEAKER) (test code 99 mL/min/1.73 sq m EST IMATED GFR IS NOT = 1092) ACCURATE CREA TININE CLEARANCE IN PRE DICTING GLOMERULAR FILTR ATION RATE. ESTIMATED GFR IS NOT APPLICABLE F OR DIALYSIS PATIENT S. Billing Auditor ID - ELISSA MPOCT-GLUCOSE [id number] 11:34:00 Test Item Value Reference Range Comments POC-GLUCOSE METER (BEAKER) 104 mg/dL 70-110 : HEIDI ANNIE AT [facility] [address] [facility] (test code = 1538) [place], [address]: Billing Auditor/Technic juana ID = [id number] for [facility] [employer] [id number] 05:51:00 Test Item Value Reference Range Comments SODIUM (BEAKER) (test 150 meq/L 136-145 code = 381) POTASSIUM (BEAKER) (test 3.5 meq/L 3.5-5.1 code = 379) CHLORIDE (BEAKER) (test 115 meq/L 98-107 code = 382) CO2 (BEAKER) (test code = 31 meq/L 22-29 355) BLOOD UREA NITROGEN 35 mg/dL 7-21 (BEAKER) (test code = 354) CREATININE (BEAKER) (test 0.78 mg/dL 0.57-1.25 code = 358) GLUCOSE RANDOM (BEAKER) 86 mg/dL 70-105 (test code = 652) CALCIUM (BEAKER) (test 7.9 mg/dL 8.4-10.2 code = 697) EGFR (BEAKER) (test code 100 mL/min/1.73 sq m ES TIMATED GFR IS NOT = 1092) ACCURATE CREA TININE CLEARANCE IN PRE DICTING GLOMERULAR FILTR ATION RATE. ESTIMATED GFR IS NOT APPLICABLE F OR DIALYSIS PATIENT S. Billing Auditor ID - ELISSA [id number] 05:43:00 Test Item Value Reference Range Comments PHOSPHORUS (BEAKER) (test code = 604) 3.5 mg/dL 2.3-4.7 Billing Auditor ID - ELISSA [id number] 05:43:00 Test Item Value Reference Range Comments MAGNESIUM (BEAKER) (test code = 627) 1.9 mg/dL 1.6-2.6 Billing Auditor ID - ELISSA MCBC W/PLT COUNT & AUTO [id number] 05:28:00 Test Item Value Reference Range Comments WHITE BLOOD CELL COUNT (BEAKER) (test code = 7.7 K/ L 3.5 -10.5 775) RED BLOOD CELL COUNT (BEAKER) (test code = 761) 3.54 M/ L 4.63-6.08 HEMOGLOBIN (BEAKER) (test code = 410) 9.1 GM/DL 13.7-17.5 HEMATOCRIT (BEAKER) (test code = 411) 29.8 % 40.1-51.0 MEAN CORPUSCULAR VOLUME (BEAKER) (test code = 84.2 fL 79 .0-92.2 753) MEAN CORPUSCULAR HEMOGLOBIN (BEAKER) (test code 25.7 pg 25.7-32.2 = 751) MEAN CORPUSCULAR HEMOGLOBIN CONC (BEAKER) (test 30.5 GM/DL 32.3-36.5 code = 752) RED CELL DISTRIBUTION WIDTH (BEAKER) (test code 26.5 % 11.6-14.4 = 412) PLATELET COUNT (BEAKER) (test code = 756) 196 K/CU MM 150-45 0 MEAN PLATELET VOLUME (BEAKER) (test code = 754) 11.5 fL 9.4-12.4 NUCLEATED RED BLOOD CELLS (BEAKER) (test code = 0 /100 WBC 0-0 413) NEUTROPHILS RELATIVE PERCENT (BEAKER) (test code 58 % = 429) LYMPHOCYTES RELATIVE PERCENT (BEAKER) (test code 22 % = 430) MONOCYTES RELATIVE PERCENT (BEAKER) (test code = 12 % 431) EOSINOPHILS RELATIVE PERCENT (BEAKER) (test code 7 % = 432) BASOPHILS RELATIVE PERCENT (BEAKER) (test code = 0 % 437) NEUTROPHILS ABSOLUTE COUNT (BEAKER) (test code = 4.49 K/ L 1.78-5.38 670) LYMPHOCYTES ABSOLUTE COUNT (BEAKER) (test code = 1.71 K/ L 1.32-3.57 414) MONOCYTES ABSOLUTE COUNT (BEAKER) (test code = 0.93 K/ L 0 .30-0.82 415) EOSINOPHILS ABSOLUTE COUNT (BEAKER) (test code = 0.53 K/ L 0.04-0.54 416) BASOPHILS ABSOLUTE COUNT (BEAKER) (test code = 0.02 K/ L 0 .01-0.08 417) IMMATURE GRANULOCYTES-RELATIVE PERCENT (BEAKER) 0 % 0-1 (test code = 2801) RAD, CHEST, 1 VIEW, NON [id number] 04:46:00Reason for exam:->eval pleural effusionsShould this be performed at the bedside?->YesFINAL REPORT RAD, CHEST, 1 VIEW, NON DEPT INDICATION: eval pleural effusions C OMPARISON: April 04, 2019 FINDINGS: Portable frontal view [...] None. Signed: Rashad Stiles MDReport Verified Date/Time: 04/05/2019 04:46:52 POCT-GLUCOSE [id number] 23:55:00 Test Item Value Reference Range Comments POC-GLUCOSE METER (BEAKER) 103 mg/dL 70-110 : [facility] AT [facility] [address], [place] (test code = 1538) [facility], [address]: Billing Auditor/Technic juana ID = [id number] for ANN BOLDEN MOL FUNGUS CULTURE + [id number] 18:09:00 Test Item Value Reference Range Comments CULTURE (BEAKER) (test code = 1095) 2+ Ana albicans FUNGUS SMEAR (BEAKER) (test code = No fungi seen 1406) RAD, ABDOMEN/KUB, 1 VIEW [id number] 18:03:00Reason for exam:->TFFINAL REPORT Abdomen date 04/04/2019 Comment: Frontal view of the abdomen demonstrates a feeding tube present with tip noted in the descending duodenum. Signed: Tomasa Foss MDReport Verified Date/Time: 04/04/2019 18:03:16 Reading Location: [facility] [id number] Consult Reading Room POCT-GLUCOSE [id number] 17:54:00 Test Item Value Reference Range Comments POC-GLUCOSE METER (BEAKER) 82 mg/dL 70-110 : [facility] AT [facility] [address] [place] (test code = 1538) [facility], [address]: Billing Auditor/Technic juana ID = [id number] for YAMIL GILMORE OE BASIC METABOLIC [id number] 17:40:00 Test Item Value Reference Range Comments SODIUM (BEAKER) (test 149 meq/L 136-145 code = 381) POTASSIUM (BEAKER) (test 3.6 meq/L 3.5-5.1 Specime n slightly code = 379) hemolyzed CHLORIDE (BEAKER) (test 112 meq/L 98-107 code = 382) CO2 (BEAKER) (test code = 30 meq/L 22-29 355) BLOOD UREA NITROGEN 38 mg/dL 7-21 (BEAKER) (test code = 354) CREATININE (BEAKER) (test 0.95 mg/dL 0.57-1.25 Specim en slightly code = 358) hemolyzed GLUCOSE RANDOM (BEAKER) 90 mg/dL 70-105 (test code = 652) CALCIUM (BEAKER) (test 8.2 mg/dL 8.4-10.2 code = 697) EGFR (BEAKER) (test code 80 mL/min/1.73 sq m EST IMATED GFR IS NOT = 1092) ACCURATE CREA TININE CLEARANCE IN PRE DICTING GLOMERULAR FILTR ATION RATE. ESTIMATED GFR IS NOT APPLICABLE F OR DIALYSIS PATIENT S. Billing Auditor ID - BSRAD, ABDOMEN/KUB, 1 VIEW [id number] 15:46:00Reason for exam:- >korpak placementFINAL REPORT RAD, ABDOMEN/KUB, 1 VIEW AP [...] Nonspecific, nonobstructive bowel gas pattern. Signed: Alicia Garcia Verified Date/Time: 04/04/2019 15:46:45 Reading Location: [facility] Radiology Reading Room POCT-GLUCOSE [id number] 12:21:00 Test Item Value Reference Range Comments POC-GLUCOSE METER (BEAKER) 94 mg/dL 70-110 : [facility] ANNIE AT [facility] [address] [place] [address] (test code = 1538) [facility], [address]: Billing Auditor/Technic juana ID = [id number] for YAMIL GILMORE OE RAD, CHEST, 1 VIEW, NON [id number] 08:56:00Reason for exam:->eval pleural effusion, CT in placeShould this be performed at the bedside?->YesFINAL REPORT RAD, CHEST, 1 VIEW, NON DEPT INDICATION: eval pleural effusion, CT in place COMPARISON: Prior day's exam FINDINGS: Portable frontal view of the chest. IMPRESSION:Support Lines: Stable. Lungs and pleura: Unchanged airspace and pleural opacities. No pneumothorax.Heart and mediastinum: Stable contours. Stable surgical changes.Additional findings: None. Signed: Alicia Infante Verified Date/Time: 04/04/2019 08:56:32 Reading Location: [facility] Radiology Reading Room CBC W/PLT COUNT & AUTO DIFFERENTIAL 2019-04-04 06:20:00 Test Item Value Reference Range Comments WHITE BLOOD CELL COUNT (BEAKER) (test code = 9.9 K/ L 3.5 -10.5 775) RED BLOOD CELL COUNT (BEAKER) (test code = 761) 3.87 M/ L 4.63-6.08 HEMOGLOBIN (BEAKER) (test code = 410) 9.7 GM/DL 13.7-17.5 HEMATOCRIT (BEAKER) (test code = 411) 32.8 % 40.1-51.0 MEAN CORPUSCULAR VOLUME (BEAKER) (test code = 84.8 fL 79 .0-92.2 753) MEAN CORPUSCULAR HEMOGLOBIN (BEAKER) (test code 25.1 pg 25.7-32.2 = 751) MEAN CORPUSCULAR HEMOGLOBIN CONC (BEAKER) (test 29.6 GM/DL 32.3-36.5 code = 752) RED CELL DISTRIBUTION WIDTH (BEAKER) (test code 26.1 % 11.6-14.4 = 412) PLATELET COUNT (BEAKER) (test code = 756) 240 K/CU MM 150-45 0 MEAN PLATELET VOLUME (BEAKER) (test code = 754) 12.4 fL 9.4-12.4 NUCLEATED RED BLOOD CELLS (BEAKER) (test code = 0 /100 WBC 0-0 413) NEUTROPHILS RELATIVE PERCENT (BEAKER) (test code 65 % = 429) LYMPHOCYTES RELATIVE PERCENT (BEAKER) (test code 18 % = 430) MONOCYTES RELATIVE PERCENT (BEAKER) (test code = 10 % 431) EOSINOPHILS RELATIVE PERCENT (BEAKER) (test code 7 % = 432) BASOPHILS RELATIVE PERCENT (BEAKER) (test code = 0 % 437) NEUTROPHILS ABSOLUTE COUNT (BEAKER) (test code = 6.40 K/ L 1.78-5.38 670) LYMPHOCYTES ABSOLUTE COUNT (BEAKER) (test code = 1.80 K/ L 1.32-3.57 414) MONOCYTES ABSOLUTE COUNT (BEAKER) (test code = 1.00 K/ L 0 .30-0.82 415) EOSINOPHILS ABSOLUTE COUNT (BEAKER) (test code = 0.65 K/ L 0.04-0.54 416) BASOPHILS ABSOLUTE COUNT (BEAKER) (test code = 0.03 K/ L 0 .01-0.08 417) IMMATURE GRANULOCYTES-RELATIVE PERCENT (BEAKER) 0 % 0-1 (test code = 2801) POCT-GLUCOSE [id number] 05:41:00 Test Item Value Reference Range Comments POC-GLUCOSE METER (BEAKER) 107 mg/dL 70-110 : [facility] AT [facility] [address], [place] (test code = 1538) [facility], [address]: Billing Auditor/Technic juana ID = [id number] for RAVI BENDER [id number] 05:17:00 Test Item Value Reference Range Comments PHOSPHORUS (BEAKER) (test code = 604) 4.2 mg/dL 2.3-4.7 Billing Auditor ID - ELISSA [id number] 05:17:00 Test Item Value Reference Range Comments MAGNESIUM (BEAKER) (test code = 627) 1.9 mg/dL 1.6-2.6 Billing Auditor ID - ELISSA MBASIC METABOLIC [id number] 05:17:00 Test Item Value Reference Range Comments SODIUM (BEAKER) (test 148 meq/L 136-145 code = 381) POTASSIUM (BEAKER) (test 4.1 meq/L 3.5-5.1 code = 379) CHLORIDE (BEAKER) (test 115 meq/L 98-107 code = 382) CO2 (BEAKER) (test code = 32 meq/L 22-29 355) BLOOD UREA NITROGEN 39 mg/dL 7-21 (BEAKER) (test code = 354) CREATININE (BEAKER) (test 0.90 mg/dL 0.57-1.25 code = 358) GLUCOSE RANDOM (BEAKER) 121 mg/dL 70-105 (test code = 652) CALCIUM (BEAKER) (test 8.2 mg/dL 8.4-10.2 code = 697) EGFR (BEAKER) (test code 85 mL/min/1.73 sq m EST IMATED GFR IS NOT = 1092) ACCURATE CREA TININE CLEARANCE IN PRE DICTING GLOMERULAR FILTR ATION RATE. ESTIMATED GFR IS NOT APPLICABLE F OR DIALYSIS PATIENT S. Billing Auditor ID - ELISSA MPOCT-GLUCOSE [id number] 00:06:00 Test Item Value Reference Range Comments POC-GLUCOSE METER (BEAKER) 109 mg/dL 70-110 : [facility] ANN[facility] AT [facility] [address] [place] (test code = 1538) [facility], [address]: Billing Auditor/Technic juana ID = [id number] for RAVI BENDER [id number] 20:00:00 Test Item Value Reference Range Comments MAGNESIUM (BEAKER) (test code = 1.9 mg/dL 1.6-2.6 Specimen slightly hemolyzed 627) Billing Auditor ID - BSPOCT-GLUCOSE [id number] 17:14:00 Test Item Value Reference Range Comments POC-GLUCOSE METER (BEAKER) 114 mg/dL 70-110 : [facility] ANNIE AT [facility] [address] [place] (test code = 1538) [facility], [address]: Billing Auditor/Technic juana ID = [id number] for ELOISA GARNICA BASIC METABOLIC [id number] 16:17:00 Test Item Value Reference Range Comments SODIUM (BEAKER) (test 149 meq/L 136-145 code = 381) POTASSIUM (BEAKER) (test 4.0 meq/L 3.5-5.1 Specime n slightly code = 379) hemolyzed CHLORIDE (BEAKER) (test 114 meq/L 98-107 code = 382) CO2 (BEAKER) (test code = 32 meq/L 22-29 355) BLOOD UREA NITROGEN 40 mg/dL 7-21 (BEAKER) (test code = 354) CREATININE (BEAKER) (test 0.91 mg/dL 0.57-1.25 Specim en slightly code = 358) hemolyzed GLUCOSE RANDOM (BEAKER) 107 mg/dL 70-105 (test code = 652) CALCIUM (BEAKER) (test 8.3 mg/dL 8.4-10.2 code = 697) EGFR (BEAKER) (test code 84 mL/min/1.73 sq m EST IMATED GFR IS NOT = 1092) ACCURATE CREA TININE CLEARANCE IN PRE DICTING GLOMERULAR FILTR ATION RATE. ESTIMATED GFR IS NOT APPLICABLE F OR DIALYSIS PATIENT S. Billing Auditor ID - BSPOCT-GLUCOSE [id number] 12:20:00 Test Item Value Reference Range Comments POC-GLUCOSE METER (BEAKER) 108 mg/dL 70-110 : [facility] AT [facility] [address] [place] (test code = 1538) [facility], [address]: Billing Auditor/Technic juana ID = [id number] for CATHRYN LAWLER TO POCT-GLUCOSE [id number] 06:08:00 Test Item Value Reference Range Comments POC-GLUCOSE METER (BEAKER) 96 mg/dL 70-110 : [facility] AT [facility] [address] (test code = 1538) [place], [address]: Billing Auditor/Technic juana ID = [id number] for ANN BOLDEN, CHEST, 1 VIEW, NON [id number] 05:49:00Reason for exam:->chest tubesShould this be performed at the bedside?->YesFINAL REPORT Chest one view. Clinical history: chest tubes Comparison: Chest radiograph 04/02/2019. Technique: A single frontal view of [...] effusions. There is no pneumothorax. Signed: Nakia Goldsteinepc[facility] Verified Date/Time: 04/03/2019 05:49:51 [id number] 02:46:00 Test Item Value Reference Range Comments PHOSPHORUS (BEAKER) (test code = 604) 3.1 mg/dL 2.3-4.7 Billing Auditor ID - SANDRA [id number] 02:46:00 Test Item Value Reference Range Comments MAGNESIUM (BEAKER) (test code = 627) 1.8 mg/dL 1.6-2.6 Billing Auditor ID - SANDRA WBASIC METABOLIC [id number] 02:46:00 Test Item Value Reference Range Comments SODIUM (BEAKER) (test 148 meq/L 136-145 code = 381) POTASSIUM (BEAKER) (test 3.3 meq/L 3.5-5.1 code = 379) CHLORIDE (BEAKER) (test 114 meq/L 98-107 code = 382) CO2 (BEAKER) (test code = 32 meq/L 22-29 355) BLOOD UREA NITROGEN 42 mg/dL 7-21 (BEAKER) (test code = 354) CREATININE (BEAKER) (test 0.87 mg/dL 0.57-1.25 code = 358) GLUCOSE RANDOM (BEAKER) 107 mg/dL 70-105 (test code = 652) CALCIUM (BEAKER) (test 8.3 mg/dL 8.4-10.2 code = 697) EGFR (BEAKER) (test code 88 mL/min/1.73 sq m EST IMATED GFR IS NOT = 1092) ACCURATE CREA TININE CLEARANCE IN PRE DICTING GLOMERULAR FILTR ATION RATE. ESTIMATED GFR IS NOT APPLICABLE F OR DIALYSIS PATIENT S. Billing Auditor ID - SANDRA WCBC W/PLT COUNT & AUTO [id number] 02:35:00 Test Item Value Reference Range Comments WHITE BLOOD CELL COUNT (BEAKER) (test code = 10.4 K/ L 3.5 -10.5 775) RED BLOOD CELL COUNT (BEAKER) (test code = 761) 3.64 M/ L 4.63-6.08 HEMOGLOBIN (BEAKER) (test code = 410) 9.1 GM/DL 13.7-17.5 HEMATOCRIT (BEAKER) (test code = 411) 29.6 % 40.1-51.0 MEAN CORPUSCULAR VOLUME (BEAKER) (test code = 81.3 fL 79 .0-92.2 753) MEAN CORPUSCULAR HEMOGLOBIN (BEAKER) (test code 25.0 pg 25.7-32.2 = 751) MEAN CORPUSCULAR HEMOGLOBIN CONC (BEAKER) (test 30.7 GM/DL 32.3-36.5 code = 752) RED CELL DISTRIBUTION WIDTH (BEAKER) (test code 25.7 % 11.6-14.4 = 412) PLATELET COUNT (BEAKER) (test code = 756) 220 K/CU MM 150-45 0 MEAN PLATELET VOLUME (BEAKER) (test code = 754) 12.2 fL 9.4-12.4 NUCLEATED RED BLOOD CELLS (BEAKER) (test code = 0 /100 WBC 0-0 413) NEUTROPHILS RELATIVE PERCENT (BEAKER) (test code 64 % = 429) LYMPHOCYTES RELATIVE PERCENT (BEAKER) (test code 19 % = 430) MONOCYTES RELATIVE PERCENT (BEAKER) (test code = 10 % 431) EOSINOPHILS RELATIVE PERCENT (BEAKER) (test code 6 % = 432) BASOPHILS RELATIVE PERCENT (BEAKER) (test code = 0 % 437) NEUTROPHILS ABSOLUTE COUNT (BEAKER) (test code = 6.67 K/ L 1.78-5.38 670) LYMPHOCYTES ABSOLUTE COUNT (BEAKER) (test code = 1.95 K/ L 1.32-3.57 414) MONOCYTES ABSOLUTE COUNT (BEAKER) (test code = 1.05 K/ L 0 .30-0.82 415) EOSINOPHILS ABSOLUTE COUNT (BEAKER) (test code = 0.63 K/ L 0.04-0.54 416) BASOPHILS ABSOLUTE COUNT (BEAKER) (test code = 0.04 K/ L 0 .01-0.08 417) IMMATURE GRANULOCYTES-RELATIVE PERCENT (BEAKER) 0 % 0-1 (test code = 2801) POCT-GLUCOSE [id number] 00:12:00 Test Item Value Reference Range Comments POC-GLUCOSE METER (BEAKER) 87 mg/dL 70-110 : [facility] AT [facility] [address] [place] (test code = 1538) [facility], [address]: Billing Auditor/Technic juana ID = [id number] for ANN BOLDEN [id number] 23:01:00 Test Item Value Reference Range Comments PARTIAL THROMBOPLASTIN TIME (BEAKER) (test code 88.0 seconds 22.5-36.0 = 760) BASIC METABOLIC [id number] 18:04:00 Test Item Value Reference Range Comments SODIUM (BEAKER) (test 146 meq/L 136-145 code = 381) POTASSIUM (BEAKER) (test 4.5 meq/L 3.5-5.1 Specime n slightly code = 379) hemolyzed CHLORIDE (BEAKER) (test 113 meq/L 98-107 code = 382) CO2 (BEAKER) (test code = 26 meq/L 22-29 355) BLOOD UREA NITROGEN 43 mg/dL 7-21 (BEAKER) (test code = 354) CREATININE (BEAKER) (test 1.01 mg/dL 0.57-1.25 Specim en slightly code = 358) hemolyzed GLUCOSE RANDOM (BEAKER) 93 mg/dL 70-105 (test code = 652) CALCIUM (BEAKER) (test 8.7 mg/dL 8.4-10.2 code = 697) EGFR (BEAKER) (test code 74 mL/min/1.73 sq m EST IMATED GFR IS NOT = 1092) ACCURATE CREA TININE CLEARANCE IN PRE DICTING GLOMERULAR FILTR ATION RATE. ESTIMATED GFR IS NOT APPLICABLE F OR DIALYSIS PATIENT S. Billing Auditor ID - [id number] 17:41:00 Test Item Value Reference Range Comments PARTIAL THROMBOPLASTIN TIME (BEAKER) (test code 75.2 seconds 22.5-36.0 = 760) POCT-GLUCOSE [id number] 17:38:00 Test Item Value Reference Range Comments POC-GLUCOSE METER (BEAKER) 100 mg/dL 70-110 : HEIDI ANNIE AT [address] (test code = 1538) [facility], [address]: Billing Auditor/Technic juana ID = [id number] for COURTNEY GARCIA POCT-GLUCOSE [id number] 12:31:00 Test Item Value Reference Range Comments POC-GLUCOSE METER (BEAKER) 88 mg/dL 70-110 : HEIDI ANNIE AT [address] (test code = 1538) [facility], [address]: Billing Auditor/Technic juana ID = [id number] for COURTNEY GARCIA RAD, CHEST, 1 VIEW, NON [id number] 09:47:00Reason for exam:->naShould this be performed at the bedside?->YesFINAL REPORT Comparison: 04/01/2019 TECHNIQUE: Single view of the chest FINDINGS: Patchy interstitial opacities and small pleural effusions, right greater than left are stable. No gross pneumothorax. Interval removal of right internal jugular central line. Remaining support lines and tubes are stable. Signed: Aiden Willett MDReport Verified Date/Time: 04/02/2019 09:47:11 Reading Location: [facility] Radiology Reading Room 09:47 [id number] 08:29:00 Test Item Value Reference Range Comments PARTIAL THROMBOPLASTIN TIME (BEAKER) (test code 41.5 seconds 22.5-36.0 = 760) POCT-GLUCOSE [id number] 05:53:00 Test Item Value Reference Range Comments POC-GLUCOSE METER (BEAKER) 96 mg/dL 70-110 : [facility]ID[facility] ANNIE AT [facility] [address] (test code = 1538) [place], [address]: Billing Auditor/Technic juana ID = [id number] for ANN BOLDEN [id number] 02:06:00 Test Item Value Reference Range Comments PARTIAL THROMBOPLASTIN TIME (BEAKER) (test code 75.8 seconds 22.5-36.0 = 760) [id number] 01:58:00 Test Item Value Reference Range Comments PHOSPHORUS (BEAKER) (test code = 604) 3.3 mg/dL 2.3-4.7 Billing Auditor ID - [id number] 01:58:00 Test Item Value Reference Range Comments MAGNESIUM (BEAKER) (test code = 627) 1.8 mg/dL 1.6-2.6 Billing Auditor ID - ASBASIC METABOLIC [id number] 01:58:00 Test Item Value Reference Range Comments SODIUM (BEAKER) (test 146 meq/L 136-145 code = 381) POTASSIUM (BEAKER) (test 3.3 meq/L 3.5-5.1 code = 379) CHLORIDE (BEAKER) (test 112 meq/L 98-107 code = 382) CO2 (BEAKER) (test code = 28 meq/L 22-29 355) BLOOD UREA NITROGEN 54 mg/dL 7-21 (BEAKER) (test code = 354) CREATININE (BEAKER) (test 0.95 mg/dL 0.57-1.25 code = 358) GLUCOSE RANDOM (BEAKER) 101 mg/dL 70-105 (test code = 652) CALCIUM (BEAKER) (test 8.2 mg/dL 8.4-10.2 code = 697) EGFR (BEAKER) (test code 80 mL/min/1.73 sq m EST IMATED GFR IS NOT = 1092) ACCURATE CREA TININE CLEARANCE IN PRE DICTING GLOMERULAR FILTR ATION RATE. ESTIMATED GFR IS NOT APPLICABLE F OR DIALYSIS PATIENT S. Billing Auditor ID - ASBLOOD GAS, [id number] 01:35:00 Test Item Value Reference Range Comments PH ARTERIAL (BEAKER) (test code = 383) 7.56 7.35-7.45 PCO2 ARTERIAL (BEAKER) (test code = 384) 35 mmHg 35-45 PO2 ARTERIAL (BEAKER) (test code = 385) 90 mmHg 80-90 O2 SATURATION ARTERIAL (BEAKER) (test code = 386) 97.9 % 96.0-97.0 HCO3 ARTERIAL (BEAKER) (test code = 388) 31 mmol/L 21-29 BASE EXCESS ARTERIAL (BEAKER) (test code = 387) 7.7 mmol/L -2.0-3.0 PATIENT TEMPERATURE (BEAKER) (test code = 1818) 36.4 C FIO2 (BEAKER) (test code = 1819) 21.0 % CBC W/PLT COUNT & AUTO [id number] 01:35:00 Test Item Value Reference Range Comments WHITE BLOOD CELL COUNT (BEAKER) (test code = 12.2 K/ L 3.5 -10.5 775) RED BLOOD CELL COUNT (BEAKER) (test code = 761) 3.47 M/ L 4.63-6.08 HEMOGLOBIN (BEAKER) (test code = 410) 8.9 GM/DL 13.7-17.5 HEMATOCRIT (BEAKER) (test code = 411) 28.2 % 40.1-51.0 MEAN CORPUSCULAR VOLUME (BEAKER) (test code = 81.3 fL 79 .0-92.2 753) MEAN CORPUSCULAR HEMOGLOBIN (BEAKER) (test code 25.6 pg 25.7-32.2 = 751) MEAN CORPUSCULAR HEMOGLOBIN CONC (BEAKER) (test 31.6 GM/DL 32.3-36.5 code = 752) RED CELL DISTRIBUTION WIDTH (BEAKER) (test code 26.0 % 11.6-14.4 = 412) PLATELET COUNT (BEAKER) (test code = 756) 218 K/CU MM 150-45 0 MEAN PLATELET VOLUME (BEAKER) (test code = 754) 12.4 fL 9.4-12.4 NUCLEATED RED BLOOD CELLS (BEAKER) (test code = 0 /100 WBC 0-0 413) NEUTROPHILS RELATIVE PERCENT (BEAKER) (test code 65 % = 429) LYMPHOCYTES RELATIVE PERCENT (BEAKER) (test code 19 % = 430) MONOCYTES RELATIVE PERCENT (BEAKER) (test code = 9 % 431) EOSINOPHILS RELATIVE PERCENT (BEAKER) (test code 6 % = 432) BASOPHILS RELATIVE PERCENT (BEAKER) (test code = 0 % 437) NEUTROPHILS ABSOLUTE COUNT (BEAKER) (test code = 7.89 K/ L 1.78-5.38 670) LYMPHOCYTES ABSOLUTE COUNT (BEAKER) (test code = 2.30 K/ L 1.32-3.57 414) MONOCYTES ABSOLUTE COUNT (BEAKER) (test code = 1.13 K/ L 0 .30-0.82 415) EOSINOPHILS ABSOLUTE COUNT (BEAKER) (test code = 0.76 K/ L 0.04-0.54 416) BASOPHILS ABSOLUTE COUNT (BEAKER) (test code = 0.02 K/ L 0 .01-0.08 417) IMMATURE GRANULOCYTES-RELATIVE PERCENT (BEAKER) 1 % 0-1 (test code = 2801) POCT-GLUCOSE [id number] 00:00:00 Test Item Value Reference Range Comments POC-GLUCOSE METER (BEAKER) 100 mg/dL 70-110 : [facility]IDI ANN[facility] [address] [facility]test code = 1538) [facility] Billing Auditor/Technic juana ID = [id number] for ANN BOLDEN BASIC METABOLIC [id number] 19:33:00 Test Item Value Reference Range Comments SODIUM (BEAKER) (test 148 meq/L 136-145 code = 381) POTASSIUM (BEAKER) (test 4.3 meq/L 3.5-5.1 Specime n slightly code = 379) hemolyzed CHLORIDE (BEAKER) (test 113 meq/L 98-107 code = 382) CO2 (BEAKER) (test code = 31 meq/L 22-29 355) BLOOD UREA NITROGEN 52 mg/dL 7-21 (BEAKER) (test code = 354) CREATININE (BEAKER) (test 1.07 mg/dL 0.57-1.25 Specim en slightly code = 358) hemolyzed GLUCOSE RANDOM (BEAKER) 98 mg/dL 70-105 (test code = 652) CALCIUM (BEAKER) (test 8.5 mg/dL 8.4-10.2 code = 697) EGFR (BEAKER) (test code 70 mL/min/1.73 sq m EST IMATED GFR IS NOT = 1092) ACCURATE CREA TININE CLEARANCE IN PRE DICTING GLOMERULAR FILTR ATION RATE. ESTIMATED GFR IS NOT APPLICABLE F OR DIALYSIS PATIENT S. Billing Auditor ID - [id number] 19:04:00 Test Item Value Reference Range Comments PARTIAL THROMBOPLASTIN TIME (BEAKER) (test code 57.5 seconds 22.5-36.0 = 760) POCT-GLUCOSE [id number] 18:18:00 Test Item Value Reference Range Comments POC-GLUCOSE METER (BEAKER) 105 mg/dL 70-110 : HEIDI ANNIE AT [address] (test code = 1538) [facility] Billing Auditor/Technic juana ID = [id number] for COURTNEY GARCIA POCT-GLUCOSE [id number] 11:54:00 Test Item Value Reference Range Comments POC-GLUCOSE METER (BEAKER) 90 mg/dL 70-110 : HEIDI ANNIE AT [address] (test code = 1538) [facility]: Billing Auditor/Technic juana ID = [id number] for COURTNEY GARCIA [id number] 11:32:00 Test Item Value Reference Range Comments PARTIAL THROMBOPLASTIN TIME (BEAKER) (test code 70.7 seconds 22.5-36.0 = 760) RAD, CHEST, 1 VIEW, NON [id number] 10:46:00Reason for exam:->CT in placeShould this be [...] Garcia Verified Date/Time: 04/01/2019 10:46:42 Reading Location: [facility] Radiology Reading Room LEGIONELLA [id number] 10:17:00 Test Item Value Reference Range Comments CULTURE (BEAKER) (test code = No Legionella species isolated 1095) POCT-GLUCOSE [id number] 06:39:00 Test Item Value Reference Range Comments POC-GLUCOSE METER (BEAKER) 100 mg/dL 70-110 : HEIDI ANNIE AT [facility] [address] (test code = 1538) [place], [address]: Billing Auditor/Technic juana ID = [id number] for ANN BOLDEN [id number] 04:13:00 Test Item Value Reference Range Comments PARTIAL THROMBOPLASTIN TIME (BEAKER) (test 108.7 seconds 22.5- 36.0 code = 760) BLOOD GAS, [id number] 04:03:00 Test Item Value Reference Range Comments PH ARTERIAL (BEAKER) (test code = 383) 7.54 7.35-7.45 PCO2 ARTERIAL (BEAKER) (test code = 384) 36 mmHg 35-45 PO2 ARTERIAL (BEAKER) (test code = 385) 79 mmHg 80-90 O2 SATURATION ARTERIAL (BEAKER) (test code = 386) 97.2 % 96.0-97.0 HCO3 ARTERIAL (BEAKER) (test code = 388) 31 mmol/L 21-29 BASE EXCESS ARTERIAL (BEAKER) (test code = 387) 7.2 mmol/L -2.0-3.0 PATIENT TEMPERATURE (BEAKER) (test code = 1818) 36.0 C FIO2 (BEAKER) (test code = 1819) 21.0 % [id number] 03:53:00 Test Item Value Reference Range Comments PHOSPHORUS (BEAKER) (test code = 604) 3.9 mg/dL 2.3-4.7 Billing Auditor ID - ELISSA [id number] 03:53:00 Test Item Value Reference Range Comments MAGNESIUM (BEAKER) (test code = 627) 2.1 mg/dL 1.6-2.6 Billing Auditor ID - ELISSA MBASIC METABOLIC [id number] 03:53:00 Test Item Value Reference Range Comments SODIUM (BEAKER) (test 147 meq/L 136-145 code = 381) POTASSIUM (BEAKER) (test 3.8 meq/L 3.5-5.1 code = 379) CHLORIDE (BEAKER) (test 114 meq/L 98-107 code = 382) CO2 (BEAKER) (test code = 28 meq/L 22-29 355) BLOOD UREA NITROGEN 56 mg/dL 7-21 (BEAKER) (test code = 354) CREATININE (BEAKER) (test 0.96 mg/dL 0.57-1.25 code = 358) GLUCOSE RANDOM (BEAKER) 112 mg/dL 70-105 (test code = 652) CALCIUM (BEAKER) (test 8.4 mg/dL 8.4-10.2 code = 697) EGFR (BEAKER) (test code 79 mL/min/1.73 sq m EST IMATED GFR IS NOT = 1092) ACCURATE CREA TININE CLEARANCE IN PRE DICTING GLOMERULAR FILTR ATION RATE. ESTIMATED GFR IS NOT APPLICABLE F OR DIALYSIS PATIENT S. Billing Auditor ID - ELISSA MCBC W/PLT COUNT & AUTO [id number] 03:44:00 Test Item Value Reference Range Comments WHITE BLOOD CELL COUNT (BEAKER) (test code = 10.7 K/ L 3.5 -10.5 775) RED BLOOD CELL COUNT (BEAKER) (test code = 761) 3.62 M/ L 4.63-6.08 HEMOGLOBIN (BEAKER) (test code = 410) 9.0 GM/DL 13.7-17.5 HEMATOCRIT (BEAKER) (test code = 411) 29.7 % 40.1-51.0 MEAN CORPUSCULAR VOLUME (BEAKER) (test code = 82.0 fL 79 .0-92.2 753) MEAN CORPUSCULAR HEMOGLOBIN (BEAKER) (test code 24.9 pg 25.7-32.2 = 751) MEAN CORPUSCULAR HEMOGLOBIN CONC (BEAKER) (test 30.3 GM/DL 32.3-36.5 code = 752) RED CELL DISTRIBUTION WIDTH (BEAKER) (test code 25.5 % 11.6-14.4 = 412) PLATELET COUNT (BEAKER) (test code = 756) 226 K/CU MM 150-45 0 MEAN PLATELET VOLUME (BEAKER) (test code = 754) 11.9 fL 9.4-12.4 NUCLEATED RED BLOOD CELLS (BEAKER) (test code = 0 /100 WBC 0-0 413) NEUTROPHILS RELATIVE PERCENT (BEAKER) (test code 72 % = 429) LYMPHOCYTES RELATIVE PERCENT (BEAKER) (test code 16 % = 430) MONOCYTES RELATIVE PERCENT (BEAKER) (test code = 7 % 431) EOSINOPHILS RELATIVE PERCENT (BEAKER) (test code 4 % = 432) BASOPHILS RELATIVE PERCENT (BEAKER) (test code = 0 % 437) NEUTROPHILS ABSOLUTE COUNT (BEAKER) (test code = 7.72 K/ L 1.78-5.38 670) LYMPHOCYTES ABSOLUTE COUNT (BEAKER) (test code = 1.69 K/ L 1.32-3.57 414) MONOCYTES ABSOLUTE COUNT (BEAKER) (test code = 0.75 K/ L 0 .30-0.82 415) EOSINOPHILS ABSOLUTE COUNT (BEAKER) (test code = 0.43 K/ L 0.04-0.54 416) BASOPHILS ABSOLUTE COUNT (BEAKER) (test code = 0.03 K/ L 0 .01-0.08 417) IMMATURE GRANULOCYTES-RELATIVE PERCENT (BEAKER) 1 % 0-1 (test code = 2801) POCT-GLUCOSE [id number] 00:02:00 Test Item Value Reference Range Comments POC-GLUCOSE METER (BEAKER) 87 mg/dL 70-110 : HEIDI ANNIE AT [address] (test code = 1538) [facility], [address]: Billing Auditor/Technic juana ID = [id number] for ANN BOLDEN [id number] 22:40:00 Test Item Value Reference Range Comments PARTIAL THROMBOPLASTIN TIME (BEAKER) (test code 43.8 seconds 22.5-36.0 = 760) [id number] 20:55:00 Test Item Value Reference Range Comments PARTIAL THROMBOPLASTIN TIME (BEAKER) (test 115.9 seconds 22.5- 36.0 code = 760) POCT-GLUCOSE [id number] 18:19:00 Test Item Value Reference Range Comments POC-GLUCOSE METER (BEAKER) 92 mg/dL 70-110 : HEIDI ANNIE AT [address] (test code = 1538) [facility], 7 [address]: Billing Auditor/Technic juana ID = [id number] for COURTNEY GARCIA [id number] 16:03:00Medical Cytology Report Case: [id number] Authorizing Provider: Jerald Bartlett Collected: 03/28/2019 08Kayli Whitney MD Ordering Location: [place] [address] ICU Received: 03/28/2019 1332 Pathologist: Lexus Robbins MD Specimen: Pleural PLEURAL FLUID (CYTOSPINS): - RARE REACTIVE MESOTHELIAL CELLS PRESENT IN A BACKGROUND OF ABUNDANT ACUTE INFLAMMATION Signing Pathologist Direct Phone Line: [phone] signed by Lexus Robbins MD on 03/31/2019 at 4:03 [id number] effusion; HFpEF, bioprosthetic valve, COPD, Afib, and chronic right pleural effusion who presented to OSH on 03/11 w/ respiratory failure and now bilateral pleural effusionsPLEURAL FLUID (LATERALITY NOT DESIGNATED)Received 20 ml dark orange fluidPrepared 4 cytospinsCollected: [id number]: [id number].[facility], Department of Pa thology, [address] [place] [address], [facility], [facility], [address] [place] [address], [facility], Department of [facility]ology, [address] [place] [address], [id number] 2019-03-31 14:43:00 Test Item Value Reference Range Comments TROPONIN I (BEAKER) (test code = 397) 0.20 ng/mL 0.00-0.03 Troponin I (TnI) levels [...] failure, acidosis, acute neurological disease, and persistent tachyarrhythmia.Billing Auditor ID - [facility] FCOMPREHENSIVE METABOLIC [id number] 14:39:00 Test Item Value Reference Range Comments TOTAL PROTEIN (BEAKER) 5.3 gm/dL 6.0-8.3 (test code = 770) ALBUMIN (BEAKER) (test 1.7 g/dL 3.5-5.0 code = 1145) ALKALINE PHOSPHATASE 101 U/L 40-150 (BEAKER) (test code = 346) BILIRUBIN TOTAL (BEAKER) 1.8 mg/dL 0.2-1.2 (test code = 377) SODIUM (BEAKER) (test code 149 meq/L 136-145 = 381) POTASSIUM (BEAKER) (test 3.8 meq/L 3.5-5.1 code = 379) CHLORIDE (BEAKER) (test 113 meq/L 98-107 code = 382) CO2 (BEAKER) (test code = 30 meq/L 22-29 355) BLOOD UREA NITROGEN 54 mg/dL 7-21 (BEAKER) (test code = 354) CREATININE (BEAKER) (test 0.97 mg/dL 0.57-1.25 code = 358) GLUCOSE RANDOM (BEAKER) 103 mg/dL 70-105 (test code = 652) CALCIUM (BEAKER) (test 8.8 mg/dL 8.4-10.2 code = 697) AST (SGOT) (BEAKER) (test 45 U/L 5-34 code = 353) ALT (SGPT) (BEAKER) (test 32 U/L 6-55 code = 347) EGFR (BEAKER) (test code = 78 mL/min/1.73 sq m E STIMATED GFR IS NOT 1092) ACCURATE CREA TININE CLEARANCE IN PRE DICTING GLOMERULAR FILTR ATION RATE. ESTIMATED GFR IS NOT APPLICABLE F OR DIALYSIS PATIENT S. Billing Auditor ID Sultana SCOTT [id number] 14:33:00 Test Item Value Reference Range Comments PHOSPHORUS (BEAKER) (test code = 604) 3.7 mg/dL 2.3-4.7 Billing Auditor ID Sultana SCOTT [id number] 14:33:00 Test Item Value Reference Range Comments MAGNESIUM (BEAKER) (test code = 627) 2.1 mg/dL 1.6-2.6 Billing Auditor ID Sultana SCOTT FBASIC METABOLIC [id number] 14:33:00 Test Item Value Reference Range Comments SODIUM (BEAKER) (test 149 meq/L 136-145 code = 381) POTASSIUM (BEAKER) (test 3.8 meq/L 3.5-5.1 code = 379) CHLORIDE (BEAKER) (test 113 meq/L 98-107 code = 382) CO2 (BEAKER) (test code = 30 meq/L 22-29 355) BLOOD UREA NITROGEN 54 mg/dL 7-21 (BEAKER) (test code = 354) CREATININE (BEAKER) (test 0.97 mg/dL 0.57-1.25 code = 358) GLUCOSE RANDOM (BEAKER) 103 mg/dL 70-105 (test code = 652) CALCIUM (BEAKER) (test 8.8 mg/dL 8.4-10.2 code = 697) EGFR (BEAKER) (test code 78 mL/min/1.73 sq m EST IMATED GFR IS NOT = 1092) ACCURATE CREA TININE CLEARANCE IN PRE DICTING GLOMERULAR FILTR ATION RATE. ESTIMATED GFR IS NOT APPLICABLE F OR DIALYSIS PATIENT S. PT/[id number] 14:31:00 Test Item Value Reference Range Comments PROTIME (BEAKER) (test code = 759) 17.0 seconds 11.9-14.2 INR (BEAKER) (test code = 370) 1.4 <=5.9 PARTIAL THROMBOPLASTIN TIME (BEAKER) (test code 68.3 seconds 22.5-36.0 = 760) Effective 07/24/2018: PT Reference Range ChangeNew: 11.9-14.2 Previous: 11.7- 14.7RECOMMENDED COUMADIN/WARFARIN INR THERAPY RANGESSTANDARD DOSE: 2.0-3.0 Includes: PROPHYLAXIS for venous thrombosis, systemic embolization; TREATMENT for venous thrombosis and/or pulmonary embolus.HIGH RISK: Target INR is2.5-3.5 for patients wiht mechanical heart valves.[id number] 14:31:00 Test Item Value Reference Range Comments PARTIAL THROMBOPLASTIN TIME (BEAKER) (test code 68.3 seconds 22.5-36.0 = 760) LACTIC ACID, [id number] 14:30:00 Test Item Value Reference Range Comments LACTATE BLOOD VENOUS (2) (BEAKER) (test code = 1.7 mmol/L 0 .5-2.2 9790) Billing Auditor ID - SONIA THURMAN, CHEST, 1 VIEW, NON [id number] 12:14:00Reason for exam:->CT in placeShould this be [...] osseous abnormality. Signed: Fredi Maldonado Verified Date/Time: 03/31/2019 12:14:06 Reading Location: [facility] Mammo Reading Room POCT-GLUCOSE [id number] 12:02:00 Test Item Value Reference Range Comments POC-GLUCOSE METER (Intrinsic LifeSciencesAKER) 97 mg/dL 70-110 : HEIDI ANNIE AT [facility] [address] [place] [address] (test code = 1538) [facility], [address]: Billing Auditor/Technic juana ID = [id number] for COURTNEY GARCIA RAD, ABDOMEN/KUB, 1 VIEW [id number] 11:36:00Reason for exam:->NGT placement FINAL REPORT RAD, ABDOMEN/KUB, 1 VIEW AP INDICATION: NGT placement COMPARISON: None TECHNIQUE: Limited portable radiograph of the lower chest and upper abdomen was acquired for purposes of evaluating nasogastric tube placement FINDINGS:Nasogastric tube tip overlies the stomach Signed: Alicia Garcia Verified Date/Time: 03/31/2019 11:36:59 Reading Location: [facility] Radiology Reading Room TROPONIN [id number] 10:05:00 Test Item Value Reference Range Comments TROPONIN I (BEAKER) (test code = 397) 0.25 ng/mL 0.00-0.03 Troponin I (TnI) levels [...] failure, acidosis, acute neurological disease, and persistent tachyarrhythmia.Billing Auditor ID - SONIA [id number] 07:11:00 Test Item Value Reference Range Comments PARTIAL THROMBOPLASTIN TIME (BEAKER) (test code 44.8 seconds 22.5-36.0 = 760) BLOOD GAS, [id number] 06:56:00 Test Item Value Reference Range Comments PH ARTERIAL (BEAKER) (test code = 383) 7.48 7.35-7.45 PCO2 ARTERIAL (BEAKER) (test code = 384) 41 mmHg 35-45 PO2 ARTERIAL (BEAKER) (test code = 385) 186 mmHg 80-90 O2 SATURATION ARTERIAL (BEAKER) (test code = 386) 99.4 % 96.0-97.0 HCO3 ARTERIAL (BEAKER) (test code = 388) 30 mmol/L 21-29 BASE EXCESS ARTERIAL (BEAKER) (test code = 387) 5.8 mmol/L -2.0-3.0 PATIENT TEMPERATURE (BEAKER) (test code = 1818) 36.5 C FIO2 (BEAKER) (test code = 1819) 40.0 % BASIC METABOLIC [id number] 06:08:00 Test Item Value Reference Range Comments SODIUM (BEAKER) (test 150 meq/L 136-145 code = 381) POTASSIUM (BEAKER) (test 4.1 meq/L 3.5-5.1 code = 379) CHLORIDE (BEAKER) (test 116 meq/L 98-107 code = 382) CO2 (BEAKER) (test code = 29 meq/L 22-29 355) BLOOD UREA NITROGEN 54 mg/dL 7-21 (BEAKER) (test code = 354) CREATININE (BEAKER) (test 1.02 mg/dL 0.57-1.25 code = 358) GLUCOSE RANDOM (BEAKER) 95 mg/dL 70-105 (test code = 652) CALCIUM (BEAKER) (test 9.0 mg/dL 8.4-10.2 code = 697) EGFR (BEAKER) (test code 74 mL/min/1.73 sq m EST IMATED GFR IS NOT = 1092) ACCURATE CREA TININE CLEARANCE IN PRE DICTING GLOMERULAR FILTR ATION RATE. ESTIMATED GFR IS NOT APPLICABLE F OR DIALYSIS PATIENT S. Billing Auditor ID - PIAYA LPOCT-GLUCOSE [id number] 05:52:00 Test Item Value Reference Range Comments POC-GLUCOSE METER (BEAKER) 89 mg/dL 70-110 : HEIDI ANNIE AT [facility] [address] (test code = 1538) [place], [address]: Billing Auditor/Technic juana ID = [id number] for RAVI BENDER [id number] 05:29:00 Test Item Value Reference Range Comments PARTIAL THROMBOPLASTIN TIME (BEAKER) (test 111.7 seconds 22.5- 36.0 code = 760) [id number] 05:27:00 Test Item Value Reference Range Comments PHOSPHORUS (BEAKER) (test code = 604) 3.6 mg/dL 2.3-4.7 Billing Auditor ID - PIAYA [id number] 05:27:00 Test Item Value Reference Range Comments MAGNESIUM (BEAKER) (test code = 627) 2.1 mg/dL 1.6-2.6 Billing Auditor ID - PIAYA LLACTIC ACID, [id number] 04:56:00 Test Item Value Reference Range Comments LACTATE BLOOD VENOUS (2) (BEAKER) (test code = 1.8 mmol/L 0 .5-2.2 6382) Billing Auditor ID - PIBECKY LCBC W/PLT COUNT & AUTO [id number] 04:41:00 Test Item Value Reference Range Comments WHITE BLOOD CELL COUNT 13.4 K/ L 3.5-10.5 (BEAKER) (test code = 775) RED BLOOD CELL COUNT (BEAKER) 3.65 M/ L 4.63-6.08 (test code = 761) HEMOGLOBIN (BEAKER) (test 9.2 GM/DL 13.7-17.5 code = 410) HEMATOCRIT (BEAKER) (test 29.6 % 40.1-51.0 code = 411) MEAN CORPUSCULAR VOLUME 81.1 fL 79.0-92.2 Discorda nt MCV results (BEAKER) (test code = 753) aiden red to previous results; clinica l correlation requ ired. MEAN CORPUSCULAR HEMOGLOBIN 25.2 pg 25.7-32.2 (BEAKER) (test code = 751) MEAN CORPUSCULAR HEMOGLOBIN 31.1 GM/DL 32.3-36.5 CONC (BEAKER) (test code = 752) RED CELL DISTRIBUTION WIDTH 24.4 % 11.6-14.4 (BEAKER) (test code = 412) PLATELET COUNT (BEAKER) (test 226 K/CU MM 150-450 code = 756) MEAN PLATELET VOLUME (BEAKER) 12.8 fL 9.4-12.4 (test code = 754) NUCLEATED RED BLOOD CELLS 0 /100 WBC 0-0 (BEAKER) (test code = 413) NEUTROPHILS RELATIVE PERCENT 82 % (BEAKER) (test code = 429) LYMPHOCYTES RELATIVE PERCENT 11 % (BEAKER) (test code = 430) MONOCYTES RELATIVE PERCENT 6 % (BEAKER) (test code = 431) EOSINOPHILS RELATIVE PERCENT 1 % (BEAKER) (test code = 432) BASOPHILS RELATIVE PERCENT 0 % (BEAKER) (test code = 437) NEUTROPHILS ABSOLUTE COUNT 10.95 K/ L 1.78-5.38 (BEAKER) (test code = 670) LYMPHOCYTES ABSOLUTE COUNT 1.48 K/ L 1.32-3.57 (BEAKER) (test code = 414) MONOCYTES ABSOLUTE COUNT 0.80 K/ L 0.30-0.82 (BEAKER) (test code = 415) EOSINOPHILS ABSOLUTE COUNT 0.07 K/ L 0.04-0.54 (BEAKER) (test code = 416) BASOPHILS ABSOLUTE COUNT 0.02 K/ L 0.01-0.08 (BEAKER) (test code = 417) IMMATURE 1 % 0-1 GRANULOCYTES-RELATIVE PERCENT (BEAKER) (test code = 2801) BLOOD GAS, [id number] 04:30:00 Test Item Value Reference Range Comments PH ARTERIAL (BEAKER) (test code = 383) 7.60 7.35-7.45 PCO2 ARTERIAL (BEAKER) (test code = 384) 29 mmHg 35-45 PO2 ARTERIAL (BEAKER) (test code = 385) 198 mmHg 80-90 O2 SATURATION ARTERIAL (BEAKER) (test code = 386) 99.5 % 96.0-97.0 HCO3 ARTERIAL (BEAKER) (test code = 388) 27 mmol/L 21-29 BASE EXCESS ARTERIAL (BEAKER) (test code = 387) 5.6 mmol/L -2.0-3.0 PATIENT TEMPERATURE (BEAKER) (test code = 1818) 36.5 C FIO2 (BEAKER) (test code = 1819) 40.0 % CT, BRAIN, WITHOUT [id number] 04:20:00FINAL REPORT EXAM: CT, BRAIN, WITHOUT CONTRAST CLINICAL INDICATION: Cerebral h emorrhage suspected. TECHNIQUE: CT images from skull base [...] of hypoattenuation are present in the cerebral whi te matter that are nonspecific but compatible with [...] recommended for further characterization. Signed: Tomasa Luque [facility] VerifiedDate/Time: 03/31/2019 04:20:24 TROPONIN I 2019-03-31 02:38:00 Test Item Value Reference Range Comments TROPONIN I (YELITZA) (test code = 397) 0.22 ng/mL 0.00-0.03 Troponin I (TnI) levels [...] failure, acidosis, acute neurological disease, and persistent tachyarrhythmia.Billing Auditor ID - PIAYA LB-TYPE NATRIURETIC FACTOR (BNP)2019-03-31 02:23:00 Test Item Value Reference Range Comments B-TYPE NATRIURETIC PEPTIDE (BEAKER) (test code = 1761 pg/mL 0-100 700) Billing Auditor ID - EMILIE LLACTIC ACID, [id number] 02:14:00 Test Item Value Reference Range Comments LACTATE BLOOD VENOUS (2) (YELITZA) (test code = 1.8 mmol/L 0 .5-2.2 2872) Billing Auditor ID - EMILIE LPOCT-GLUCOSE [id number] 00:30:00 Test Item Value Reference Range Comments POC-GLUCOSE METER (YELITZA) 94 mg/dL 70-110 : HEIDI ANNIE AT [facility] [address], [place] (test code = 1538) [facility], [address]: Billing Auditor/Technic juana ID = [id number] for RAVI BENDERCely CT, CHEST WITH IV CONTRAST- PE TEST [id number] 00:25:00FINAL REPORT Comparison: CT chest dated 03/17/2019 Indication: 53-year-old male with acute chest pain, hypoxia, and [...] with tip terminating in the SVC. Chest: Lungs/pleura: Moderate paraseptal and centrilobular emphysematous changes. Small [...] anterior eighth right rib. Signed: Gunjan Hanson MDReport Verified Date/Time: 03/31/2019 00:25:44 [id number] 21:46:00 Test Item Value Reference Range Comments MAGNESIUM (BEAKER) (test code = 627) 2.1 mg/dL 1.6-2.6 Billing Auditor ID - KENNCOMPREHENSIVE METABOLIC [id number] 21:46:00 Test Item Value Reference Range Comments TOTAL PROTEIN (BEAKER) 4.4 gm/dL 6.0-8.3 (test code = 770) ALBUMIN (BEAKER) (test 1.4 g/dL 3.5-5.0 code = 1145) ALKALINE PHOSPHATASE 123 U/L 40-150 (BEAKER) (test code = 346) BILIRUBIN TOTAL (BEAKER) 1.2 mg/dL 0.2-1.2 (test code = 377) SODIUM (BEAKER) (test code 148 meq/L 136-145 = 381) POTASSIUM (BEAKER) (test 4.8 meq/L 3.5-5.1 code = 379) CHLORIDE (BEAKER) (test 119 meq/L 98-107 code = 382) CO2 (BEAKER) (test code = 27 meq/L 22-29 355) BLOOD UREA NITROGEN 54 mg/dL 7-21 (BEAKER) (test code = 354) CREATININE (BEAKER) (test 1.12 mg/dL 0.57-1.25 code = 358) GLUCOSE RANDOM (BEAKER) 360 mg/dL 70-105 (test code = 652) CALCIUM (BEAKER) (test 12.3 mg/dL 8.4-10.2 code = 697) AST (SGOT) (BEAKER) (test 38 U/L 5-34 code = 353) ALT (SGPT) (BEAKER) (test 24 U/L 6-55 code = 347) EGFR (BEAKER) (test code = 66 mL/min/1.73 sq m E STIMATED GFR IS NOT 1092) ACCURATE CREA TININE CLEARANCE IN PRE DICTING GLOMERULAR FILTR ATION RATE. ESTIMATED GFR IS NOT APPLICABLE F OR DIALYSIS PATIENT S. Billing Auditor ID - NTPOperator ID - KAUSHIKVENITA [id number] 21:23:00 Test Item Value Reference Range Comments TROPONIN I (BEAKER) (test code = 397) 0.11 ng/mL 0.00-0.03 Troponin I (TnI) levels [...] failure, acidosis, acute neurological disease, and persistent tachyarrhythmia.Billing Auditor ID - [id number] 21:21:00 Test Item Value Reference Range Comments PHOSPHORUS (BEAKER) (test code = 604) 4.5 mg/dL 2.3-4.7 Billing Auditor ID - NTPLACTIC ACID, [id number] 21:15:00 Test Item Value Reference Range Comments LACTATE BLOOD VENOUS (2) (BEAKER) (test code = 4.5 mmol/L 0 .5-2.2 2872) Billing Auditor ID - NTPRAD, CHEST, 1 VIEW, NON [id number] 21:13:00Reason for exam:->cardiac arrestShould this be performed at the bedside?->YesFINAL [...] Stable surgical changes.Additional findings: None. Signed: Gunjan Hanson [facility] Verified Date/Time: 03/30/2019 21:13:13 -CALCIUM [id number] 20:57:00 Test Item Value Reference Range Comments POC-CALCIUM IONIZED (BEAKER) 1.63 mmol/L 1.12-1.27 HEIDI ANNIE AT [facility] [address] (test code = 1536) [place] [address] [id number] 20:57:00 Test Item Value Reference Range Comments POC-HEMATOCRIT (BEAKER) (test 28 % 40-50 TE STED AT [address] code = 1857) [facility] [address] [id number] 20:57:00 Test Item Value Reference Range Comments POC-HEMOGLOBIN (BEAKER) 9.5 g/dL 13.0-16.8 TESTED A T [address] (test code = 1856) [facility] [address] [place] [address] POCT-BLOOD GASES, [id number] 20:56:00 Test Item Value Reference Range Comments TEMP, CELSIUS-POC (BEAKER) 36.1 (test code = 1834) FIO2-POC (BEAKER) (test 100 TESTED A T [address] code = 1835) [facility] [address] PH, ARTERIAL-POC (BEAKER) 7.320 7.350-7.450 (test code = 1836) PCO2, ARTERIAL-POC (BEAKER) 61.8 mm Hg 35.0-45.0 (test code = 1837) PO2, ARTERIAL-POC (BEAKER) 409.0 mm Hg 80.0-90.0 (test code = 1838) SO2, ARTERIAL-POC (BEAKER) 100.0 % 96.0-97.0 (test code = 1839) HCO3, ARTERIAL-POC (BEAKER) 32.2 meq/L 21.0-29.0 (test code = 1840) BASE EXCESS, ARTERIAL-POC 6.0 meq/L -2.0-3.0 (BEAKER) (test code = 1841) [id number] 20:56:00 Test Item Value Reference Range Comments POC-SODIUM (BEAKER) (test 147 meq/L 135-148 TESTED AT [address] code = 1542) [facility] [address] [id number] 20:56:00 Test Item Value Reference Range Comments POC-POTASSIUM (BEAKER) (test 4.1 meq/L 3.6-5.5 HEIDI ANNIE AT [address] code = 1540) [place] [id number] 20:56:00 Test Item Value Reference Range Comments POC-GLUCOSE (BEAKER) (test 249 mg/dL 70-110 TESTE D AT [facility] [address] code = 1855) [place] [address] CBC W/PLT COUNT & AUTO [id number] 20:54:00 Test Item Value Reference Range Comments WHITE BLOOD CELL COUNT (BEAKER) (test code = 12.9 K/ L 3.5 -10.5 775) RED BLOOD CELL COUNT (BEAKER) (test code = 761) 3.71 M/ L 4.63-6.08 HEMOGLOBIN (BEAKER) (test code = 410) 9.4 GM/DL 13.7-17.5 HEMATOCRIT (BEAKER) (test code = 411) 31.6 % 40.1-51.0 MEAN CORPUSCULAR VOLUME (BEAKER) (test code = 85.2 fL 79 .0-92.2 753) MEAN CORPUSCULAR HEMOGLOBIN (BEAKER) (test code 25.3 pg 25.7-32.2 = 751) MEAN CORPUSCULAR HEMOGLOBIN CONC (BEAKER) (test 29.7 GM/DL 32.3-36.5 code = 752) RED CELL DISTRIBUTION WIDTH (BEAKER) (test code 24.5 % 11.6-14.4 = 412) PLATELET COUNT (BEAKER) (test code = 756) 226 K/CU MM 150-45 0 MEAN PLATELET VOLUME (BEAKER) (test code = 754) 12.8 fL 9.4-12.4 NUCLEATED RED BLOOD CELLS (BEAKER) (test code = 1 /100 WBC 0-0 413) NEUTROPHILS RELATIVE PERCENT (BEAKER) (test code 60 % = 429) LYMPHOCYTES RELATIVE PERCENT (BEAKER) (test code 28 % = 430) MONOCYTES RELATIVE PERCENT (BEAKER) (test code = 7 % 431) EOSINOPHILS RELATIVE PERCENT (BEAKER) (test code 2 % = 432) BASOPHILS RELATIVE PERCENT (BEAKER) (test code = 0 % 437) NEUTROPHILS ABSOLUTE COUNT (BEAKER) (test code = 7.74 K/ L 1.78-5.38 670) LYMPHOCYTES ABSOLUTE COUNT (BEAKER) (test code = 3.63 K/ L 1.32-3.57 414) MONOCYTES ABSOLUTE COUNT (BEAKER) (test code = 0.90 K/ L 0 .30-0.82 415) EOSINOPHILS ABSOLUTE COUNT (BEAKER) (test code = 0.24 K/ L 0.04-0.54 416) BASOPHILS ABSOLUTE COUNT (BEAKER) (test code = 0.04 K/ L 0 .01-0.08 417) IMMATURE GRANULOCYTES-RELATIVE PERCENT (BEAKER) 3 % 0-1 (test code = 2801) [id number] 18:34:00 Test Item Value Reference Range Comments PARTIAL THROMBOPLASTIN TIME (BEAKER) (test code 74.5 seconds 22.5-36.0 = 760) POCT-GLUCOSE [id number] 18:06:00 Test Item Value Reference Range Comments POC-GLUCOSE METER (BEAKER) 123 mg/dL 70-110 : HEIDI ANNIE AT [facility] [address] (test code = 1538) [place], [address]: Billing Auditor/Technic juana ID = [id number] for CRYSTAL LIZAMA BASIC METABOLIC [id number] 16:18:00 Test Item Value Reference Range Comments SODIUM (BEAKER) (test 149 meq/L 136-145 code = 381) POTASSIUM (BEAKER) (test 4.5 meq/L 3.5-5.1 code = 379) CHLORIDE (BEAKER) (test 116 meq/L 98-107 code = 382) CO2 (BEAKER) (test code = 30 meq/L 22-29 355) BLOOD UREA NITROGEN 54 mg/dL 7-21 (BEAKER) (test code = 354) CREATININE (BEAKER) (test 0.99 mg/dL 0.57-1.25 code = 358) GLUCOSE RANDOM (BEAKER) 126 mg/dL 70-105 (test code = 652) CALCIUM (BEAKER) (test 8.2 mg/dL 8.4-10.2 code = 697) EGFR (BEAKER) (test code 76 mL/min/1.73 sq m EST IMATED GFR IS NOT = 1092) ACCURATE CREA TININE CLEARANCE IN PRE DICTING GLOMERULAR FILTR ATION RATE. ESTIMATED GFR IS NOT APPLICABLE F OR DIALYSIS PATIENT S. Billing Auditor ID - [id number] 12:36:00 Test Item Value Reference Range Comments PARTIAL THROMBOPLASTIN TIME (BEAKER) (test code 80.4 seconds 22.5-36.0 = 760) POCT-GLUCOSE [id number] 12:00:00 Test Item Value Reference Range Comments POC-GLUCOSE METER (BEAKER) 116 mg/dL 70-110 : HEIDI ANNIE AT [facility] [address] [place] (test code = 1538) [facility], [address]: Billing Auditor/Technic juana ID = [id number] for YAMIL GILMORE BLOOD [id number] 11:00:00 Test Item Value Reference Range Comments CULTURE (BEAKER) (test code = 1095) No growth in 5 days BLOOD [id number] 11:00:00 Test Item Value Reference Range Comments CULTURE (BEAKER) (test code = 1095) No growth in 5 days RAD, CHEST, 1 VIEW, NON [id number] 10:31:00Reason for exam:->CT in placeShould this be [...] lines and tubes are stable. Signed: Aiden Willett MDReport Verified Date/Time: 03/30/2019 10:31:51 Reading Location: [address] Transitional Reading Room [id number] 06:59:00 Test Item Value Reference Range Comments PARTIAL THROMBOPLASTIN TIME (BEAKER) (test code 53.3 seconds 22.5-36.0 = 760) POCT-GLUCOSE [id number] 06:06:00 Test Item Value Reference Range Comments POC-GLUCOSE METER (BEAKER) 103 mg/dL 70-110 : HEIDI ANNIE AT [facility] [address] [place] (test code = 1538) [facility] [address]: Billing Auditor/Technic juana ID = [id number] for ADALID STROUD MMA [id number] 05:16:00 Test Item Value Reference Range Comments PHOSPHORUS (BEAKER) (test code = 604) 3.4 mg/dL 2.3-4.7 Billing Auditor ID - EMILIE [id number] 05:16:00 Test Item Value Reference Range Comments MAGNESIUM (BEAKER) (test code = 627) 2.2 mg/dL 1.6-2.6 Billing Auditor ID Sultana AWANASIC METABOLIC [id number] 05:16:00 Test Item Value Reference Range Comments SODIUM (BEAKER) (test 150 meq/L 136-145 code = 381) POTASSIUM (BEAKER) (test 4.0 meq/L 3.5-5.1 code = 379) CHLORIDE (BEAKER) (test 118 meq/L 98-107 code = 382) CO2 (BEAKER) (test code = 29 meq/L 22-29 355) BLOOD UREA NITROGEN 51 mg/dL 7-21 (BEAKER) (test code = 354) CREATININE (BEAKER) (test 0.90 mg/dL 0.57-1.25 code = 358) GLUCOSE RANDOM (BEAKER) 121 mg/dL 70-105 (test code = 652) CALCIUM (BEAKER) (test 8.2 mg/dL 8.4-10.2 code = 697) EGFR (BEAKER) (test code 85 mL/min/1.73 sq m EST IMATED GFR IS NOT = 1092) ACCURATE CREA TININE CLEARANCE IN PRE DICTING GLOMERULAR FILTR ATION RATE. ESTIMATED GFR IS NOT APPLICABLE F OR DIALYSIS PATIENT S. Billing Auditor ID Sultana PHAN [id number] 05:13:00 Test Item Value Reference Range Comments PARTIAL THROMBOPLASTIN TIME (BEAKER) (test 118.9 seconds 22.5- 36.0 code = 760) CBC W/PLT COUNT & AUTO [id number] 04:58:00 Test Item Value Reference Range Comments WHITE BLOOD CELL COUNT (BEAKER) (test code = 9.0 K/ L 3.5 -10.5 775) RED BLOOD CELL COUNT (BEAKER) (test code = 761) 3.85 M/ L 4.63-6.08 HEMOGLOBIN (BEAKER) (test code = 410) 9.8 GM/DL 13.7-17.5 HEMATOCRIT (BEAKER) (test code = 411) 31.6 % 40.1-51.0 MEAN CORPUSCULAR VOLUME (BEAKER) (test code = 82.1 fL 79 .0-92.2 753) MEAN CORPUSCULAR HEMOGLOBIN (BEAKER) (test code 25.5 pg 25.7-32.2 = 751) MEAN CORPUSCULAR HEMOGLOBIN CONC (BEAKER) (test 31.0 GM/DL 32.3-36.5 code = 752) RED CELL DISTRIBUTION WIDTH (BEAKER) (test code 24.5 % 11.6-14.4 = 412) PLATELET COUNT (BEAKER) (test code = 756) 224 K/CU MM 150-45 0 MEAN PLATELET VOLUME (BEAKER) (test code = 754) 11.9 fL 9.4-12.4 NUCLEATED RED BLOOD CELLS (BEAKER) (test code = 0 /100 WBC 0-0 413) NEUTROPHILS RELATIVE PERCENT (BEAKER) (test code 73 % = 429) LYMPHOCYTES RELATIVE PERCENT (BEAKER) (test code 14 % = 430) MONOCYTES RELATIVE PERCENT (BEAKER) (test code = 9 % 431) EOSINOPHILS RELATIVE PERCENT (BEAKER) (test code 3 % = 432) BASOPHILS RELATIVE PERCENT (BEAKER) (test code = 0 % 437) NEUTROPHILS ABSOLUTE COUNT (BEAKER) (test code = 6.58 K/ L 1.78-5.38 670) LYMPHOCYTES ABSOLUTE COUNT (BEAKER) (test code = 1.27 K/ L 1.32-3.57 414) MONOCYTES ABSOLUTE COUNT (BEAKER) (test code = 0.78 K/ L 0 .30-0.82 415) EOSINOPHILS ABSOLUTE COUNT (BEAKER) (test code = 0.29 K/ L 0.04-0.54 416) BASOPHILS ABSOLUTE COUNT (BEAKER) (test code = 0.03 K/ L 0 .01-0.08 417) IMMATURE GRANULOCYTES-RELATIVE PERCENT (BEAKER) 0 % 0-1 (test code = 2801) POCT-GLUCOSE [id number] 00:28:00 Test Item Value Reference Range Comments POC-GLUCOSE METER (BEAKER) 108 mg/dL 70-110 : HEIDI JACOBS AT [address] (test code = 1538) [facility], [address]: Billing Auditor/Technic juana ID = [id number] for ADALID STROUD POCT-GLUCOSE [id number] 18:26:00 Test Item Value Reference Range Comments POC-GLUCOSE METER (BEAKER) 90 mg/dL 70-110 : HEIDI JACOBS AT [place] [id number] [facility] [place] (test code = 1538) [facility], [address]: Billing Auditor/Technic juana ID = [id number] for YAMIL GILMORE BASIC METABOLIC [id number] 12:56:00 Test Item Value Reference Range Comments SODIUM (BEAKER) (test 149 meq/L 136-145 code = 381) POTASSIUM (BEAKER) (test 3.9 meq/L 3.5-5.1 code = 379) CHLORIDE (BEAKER) (test 116 meq/L 98-107 code = 382) CO2 (BEAKER) (test code = 28 meq/L 22-29 355) BLOOD UREA NITROGEN 59 mg/dL 7-21 (BEAKER) (test code = 354) CREATININE (BEAKER) (test 1.00 mg/dL 0.57-1.25 code = 358) GLUCOSE RANDOM (BEAKER) 112 mg/dL 70-105 (test code = 652) CALCIUM (BEAKER) (test 7.9 mg/dL 8.4-10.2 code = 697) EGFR (BEAKER) (test code 75 mL/min/1.73 sq m EST IMATED GFR IS NOT = 1092) ACCURATE CREA TININE CLEARANCE IN PRE DICTING GLOMERULAR FILTR ATION RATE. ESTIMATED GFR IS NOT APPLICABLE F OR DIALYSIS PATIENT S. Billing Auditor ID - PIAYA LPOCT-GLUCOSE [id number] 12:30:00 Test Item Value Reference Range Comments POC-GLUCOSE METER (BEAKER) 109 mg/dL 70-110 : HIEDI ANNIE AT [facility] [address] [facility] [place] (test code = 1538) [facility], [address]: Billing Auditor/Technic juana ID = [id number] for YAMIL GILMORE RAD, CHEST, 1 VIEW, NON [id number] 09:49:00Reason for exam:->ETT, chest tubesShould this be [...] significant change. No gross pneumothorax. Interstitial opacities bilatera lly along with pleural effusions are grossly stable. Signed: Aiden Willett MDReport Verified Date/Time: 03/29/2019 09:49:18 Reading Location: [address] Transitional Reading Room POCT-GLUCOSE [id number] 06:12:00 Test Item Value Reference Range Comments POC-GLUCOSE METER (BEAKER) 115 mg/dL 70-110 : HEIDI ANNIE AT [facility] [address] [facility] [place] (test code = 1538) [place], [address]: Billing Auditor/Technic juana ID = [id number] for GAYLE BUSBY [facility] BASIC METABOLIC [id number] 04:51:00 Test Item Value Reference Range Comments SODIUM (BEAKER) (test 150 meq/L 136-145 code = 381) POTASSIUM (BEAKER) (test 4.1 meq/L 3.5-5.1 code = 379) CHLORIDE (BEAKER) (test 117 meq/L 98-107 code = 382) CO2 (BEAKER) (test code = 30 meq/L 22-29 355) BLOOD UREA NITROGEN 66 mg/dL 7-21 (BEAKER) (test code = 354) CREATININE (BEAKER) (test 1.16 mg/dL 0.57-1.25 code = 358) GLUCOSE RANDOM (BEAKER) 114 mg/dL 70-105 (test code = 652) CALCIUM (BEAKER) (test 7.9 mg/dL 8.4-10.2 code = 697) EGFR (BEAKER) (test code 63 mL/min/1.73 sq m EST IMATED GFR IS NOT = 1092) ACCURATE CREA TININE CLEARANCE IN PRE DICTING GLOMERULAR FILTR ATION RATE. ESTIMATED GFR IS NOT APPLICABLE F OR DIALYSIS PATIENT S. Billing Auditor ID - PIAYA LCBC W/PLT COUNT & AUTO [id number] 04:44:00 Test Item Value Reference Range Comments WHITE BLOOD CELL COUNT (BEAKER) (test code = 9.6 K/ L 3.5 -10.5 775) RED BLOOD CELL COUNT (BEAKER) (test code = 761) 3.63 M/ L 4.63-6.08 HEMOGLOBIN (BEAKER) (test code = 410) 9.1 GM/DL 13.7-17.5 HEMATOCRIT (BEAKER) (test code = 411) 29.3 % 40.1-51.0 MEAN CORPUSCULAR VOLUME (BEAKER) (test code = 80.7 fL 79 .0-92.2 753) MEAN CORPUSCULAR HEMOGLOBIN (BEAKER) (test code 25.1 pg 25.7-32.2 = 751) MEAN CORPUSCULAR HEMOGLOBIN CONC (BEAKER) (test 31.1 GM/DL 32.3-36.5 code = 752) RED CELL DISTRIBUTION WIDTH (BEAKER) (test code 22.9 % 11.6-14.4 = 412) PLATELET COUNT (BEAKER) (test code = 756) 223 K/CU MM 150-45 0 MEAN PLATELET VOLUME (BEAKER) (test code = 754) 11.7 fL 9.4-12.4 NUCLEATED RED BLOOD CELLS (BEAKER) (test code = 0 /100 WBC 0-0 413) NEUTROPHILS RELATIVE PERCENT (BEAKER) (test code 73 % = 429) LYMPHOCYTES RELATIVE PERCENT (BEAKER) (test code 13 % = 430) MONOCYTES RELATIVE PERCENT (BEAKER) (test code = 9 % 431) EOSINOPHILS RELATIVE PERCENT (BEAKER) (test code 4 % = 432) BASOPHILS RELATIVE PERCENT (BEAKER) (test code = 0 % 437) NEUTROPHILS ABSOLUTE COUNT (BEAKER) (test code = 6.96 K/ L 1.78-5.38 670) LYMPHOCYTES ABSOLUTE COUNT (BEAKER) (test code = 1.28 K/ L 1.32-3.57 414) MONOCYTES ABSOLUTE COUNT (BEAKER) (test code = 0.81 K/ L 0 .30-0.82 415) EOSINOPHILS ABSOLUTE COUNT (BEAKER) (test code = 0.41 K/ L 0.04-0.54 416) BASOPHILS ABSOLUTE COUNT (BEAKER) (test code = 0.03 K/ L 0 .01-0.08 417) IMMATURE GRANULOCYTES-RELATIVE PERCENT (BEAKER) 1 % 0-1 (test code = 2801) [id number] 04:43:00 Test Item Value Reference Range Comments PHOSPHORUS (BEAKER) (test code = 604) 4.4 mg/dL 2.3-4.7 Billing Auditor ID - LCBECKY [id number] 04:43:00 Test Item Value Reference Range Comments MAGNESIUM (BEAKER) (test code = 627) 2.2 mg/dL 1.6-2.6 Billing Auditor ID - LCBECKY [id number] 04:39:00 Test Item Value Reference Range Comments PARTIAL THROMBOPLASTIN TIME (BEAKER) (test code 83.9 seconds 22.5-36.0 = 760) POCT-GLUCOSE [id number] 00:34:00 Test Item Value Reference Range Comments POC-GLUCOSE METER (BEAKER) 112 mg/dL 70-110 : HEIDI ANNIE AT [address] (test code = 1538) [facility], [address]: Billing Auditor/Technic juana ID = [id number] for GAYLE BUSBY VANCOMYCIN LEVEL, [id number] 23:23:00 Test Item Value Reference Range Comments VANCOMYCIN TROUGH (BEAKER) (test code = 522) 17.0 ug/mL 10. 0-20.0 Billing Auditor ID - [id number] 21:15:00 Test Item Value Reference Range Comments PARTIAL THROMBOPLASTIN TIME (BEAKER) (test code 84.7 seconds 22.5-36.0 = 760) POCT-GLUCOSE [id number] 17:46:00 Test Item Value Reference Range Comments POC-GLUCOSE METER (BEAKER) 110 mg/dL 70-110 : HEIDI ANNIE AT [address] (test code = 1538) [facility], [address]: Billing Auditor/Technic juana ID = [id number] for CELIA GRIFFIN BASIC METABOLIC [id number] 16:41:00 Test Item Value Reference Range Comments SODIUM (BEAKER) (test 149 meq/L 136-145 code = 381) POTASSIUM (BEAKER) (test 4.4 meq/L 3.5-5.1 code = 379) CHLORIDE (BEAKER) (test 115 meq/L 98-107 code = 382) CO2 (BEAKER) (test code = 32 meq/L 22-29 355) BLOOD UREA NITROGEN 68 mg/dL 7-21 (BEAKER) (test code = 354) CREATININE (BEAKER) (test 1.25 mg/dL 0.57-1.25 code = 358) GLUCOSE RANDOM (BEAKER) 116 mg/dL 70-105 (test code = 652) CALCIUM (BEAKER) (test 7.8 mg/dL 8.4-10.2 code = 697) EGFR (BEAKER) (test code 58 mL/min/1.73 sq m EST IMATED GFR IS NOT = 1092) ACCURATE CREA TININE CLEARANCE IN PRE DICTING GLOMERULAR FILTR ATION RATE. ESTIMATED GFR IS NOT APPLICABLE F OR DIALYSIS PATIENT S. Billing Auditor ID - AAHAMIDANG, DRAINAGE TUBE CHANGE (GASTRO, NEPHRO OR BILIARY) 2019-03-28 14:57:00Reason for exam:->Right chest tube no longer in pleural space, please replaceFINAL REPORT Fluoroscopic guided replacement of a right chest tube. History: Patient's right chest tube has been retracted and is poorly draining.. Modality: Fluoroscopy Sedation: None Anesthesi a: Two percent Lidocaine without epinephrine. Approach: Existing right chest tube Estimated blood loss: < 5 cc. Specimen: None. molded goods operator: Nato Dang MD. Track Sweeper: Lauren. Fluoroscopy Time: 0.5 min.Reference Air Kerma [...] removed over the guidewire. A new 8.5 Malay Cook multipurpose drainage catheter was advanced over [...] pleural pigtail drainage catheter. Signed: Nato Dang Verified Date/Time: 03/28/2019 14:57:26 Reading Location: [facility] P048 Angio Body Reading Room APTT 2019-03-28 14:39:00 Test Item Value Reference Range Comments PARTIAL THROMBOPLASTIN TIME (BEAKER) (test code 77.6 seconds 22.5-36.0 = 760) POCT-GLUCOSE [id number] 13:05:00 Test Item Value Reference Range Comments POC-GLUCOSE METER (BEAKER) 96 mg/dL 70-110 : HEIDI ANNIE AT [facility] [address] [facility] [place] (test code = 1538) [facility], 7 [address]: Billing Auditor/Technic juana ID = [id number] for CELIA GRIFFIN RAD, CHEST, 1 VIEW, NON [id number] 06:59:00Reason for exam:->ETT, chest tubesShould this be performed at the bedside?->YesFINAL REPORT RAD, CHEST, 1 VIEW, NON DEPT INDICATION: ETT, chest tubes COMPARISON: Prior day's exam FINDINGS: Portable frontal view of the chest. IMPRESSION: Support Lines: Stable. Lungs and pleura: Unchanged airspace and pleural opacities. Questionable trace right pneumothorax. No pneumothorax is visible on the left.Heart and mediastinum: Stable contours. Stable surgical wendy nges.Additional findings: None. Signed: JR Jara Robert MDReport Verified Date/Time: 03/28/2019 06:59:41 Reading Location: [facility] Radiology Reading Room [id number] 06:54:00 Test Item Value Reference Range Comments PARTIAL THROMBOPLASTIN TIME (BEAKER) (test code 36.3 seconds 22.5-36.0 = 760) [id number] 05:09:00 Test Item Value Reference Range Comments PARTIAL THROMBOPLASTIN TIME (BEAKER) (test 111.4 seconds 22.5- 36.0 code = 760) [id number] 05:05:00 Test Item Value Reference Range Comments PHOSPHORUS (BEAKER) (test code = 604) 5.0 mg/dL 2.3-4.7 Billing Auditor ID - SANDRA [id number] 05:05:00 Test Item Value Reference Range Comments MAGNESIUM (BEAKER) (test code = 627) 2.2 mg/dL 1.6-2.6 Billing Auditor ID Sultana FLORES WBASIC METABOLIC [id number] 05:05:00 Test Item Value Reference Range Comments SODIUM (BEAKER) (test 146 meq/L 136-145 code = 381) POTASSIUM (BEAKER) (test 4.7 meq/L 3.5-5.1 code = 379) CHLORIDE (BEAKER) (test 114 meq/L 98-107 code = 382) CO2 (BEAKER) (test code = 29 meq/L 22-29 355) BLOOD UREA NITROGEN 74 mg/dL 7-21 (BEAKER) (test code = 354) CREATININE (BEAKER) (test 1.40 mg/dL 0.57-1.25 code = 358) GLUCOSE RANDOM (BEAKER) 123 mg/dL 70-105 (test code = 652) CALCIUM (BEAKER) (test 7.9 mg/dL 8.4-10.2 code = 697) EGFR (BEAKER) (test code 51 mL/min/1.73 sq m EST IMATED GFR IS NOT = 1092) ACCURATE CREA TININE CLEARANCE IN PRE DICTING GLOMERULAR FILTR ATION RATE. ESTIMATED GFR IS NOT APPLICABLE F OR DIALYSIS PATIENT S. Billing Auditor ID Sultana FLORES WCBC W/PLT COUNT & AUTO [id number] 05:01:00 Test Item Value Reference Range Comments WHITE BLOOD CELL COUNT (BEAKER) (test code = 14.5 K/ L 3.5 -10.5 775) RED BLOOD CELL COUNT (BEAKER) (test code = 761) 3.98 M/ L 4.63-6.08 HEMOGLOBIN (BEAKER) (test code = 410) 10.1 GM/DL 13.7-17.5 HEMATOCRIT (BEAKER) (test code = 411) 31.2 % 40.1-51.0 MEAN CORPUSCULAR VOLUME (BEAKER) (test code = 78.4 fL 79 .0-92.2 753) MEAN CORPUSCULAR HEMOGLOBIN (BEAKER) (test code 25.4 pg 25.7-32.2 = 751) MEAN CORPUSCULAR HEMOGLOBIN CONC (BEAKER) (test 32.4 GM/DL 32.3-36.5 code = 752) RED CELL DISTRIBUTION WIDTH (BEAKER) (test code 22.4 % 11.6-14.4 = 412) PLATELET COUNT (BEAKER) (test code = 756) 272 K/CU MM 150-45 0 MEAN PLATELET VOLUME (BEAKER) (test code = 754) 11.9 fL 9.4-12.4 NUCLEATED RED BLOOD CELLS (BEAKER) (test code = 0 /100 WBC 0-0 413) NEUTROPHILS RELATIVE PERCENT (BEAKER) (test code 76 % = 429) LYMPHOCYTES RELATIVE PERCENT (BEAKER) (test code 13 % = 430) MONOCYTES RELATIVE PERCENT (BEAKER) (test code = 8 % 431) EOSINOPHILS RELATIVE PERCENT (BEAKER) (test code 3 % = 432) BASOPHILS RELATIVE PERCENT (BEAKER) (test code = 0 % 437) NEUTROPHILS ABSOLUTE COUNT (BEAKER) (test code = 10.93 K/ L 1.78-5.38 670) LYMPHOCYTES ABSOLUTE COUNT (BEAKER) (test code = 1.82 K/ L 1.32-3.57 414) MONOCYTES ABSOLUTE COUNT (BEAKER) (test code = 1.18 K/ L 0 .30-0.82 415) EOSINOPHILS ABSOLUTE COUNT (BEAKER) (test code = 0.36 K/ L 0.04-0.54 416) BASOPHILS ABSOLUTE COUNT (BEAKER) (test code = 0.05 K/ L 0 .01-0.08 417) IMMATURE GRANULOCYTES-RELATIVE PERCENT (BEAKER) 1 % 0-1 (test code = 2801) POCT-GLUCOSE [id number] 00:25:00 Test Item Value Reference Range Comments POC-GLUCOSE METER (BEAKER) 114 mg/dL 70-110 : HEIDI JACOBS AT [facility] [address] (test code = 1538) [facility], [address]: Billing Auditor/Technic juana ID = [id number] for RAVI BENDER KRYSTLE POCT-GLUCOSE [id number] 17:52:00 Test Item Value Reference Range Comments POC-GLUCOSE METER (BEAKER) 111 mg/dL 70-110 : HEIDI JACOBS AT [facility] [address] [facility] [place] (test code = 1538) [facility], [address]: Billing Auditor/Technic juana ID = [id number] for COURTNEY GARCIA BASIC METABOLIC [id number] 17:02:00 Test Item Value Reference Range Comments SODIUM (BEAKER) (test 147 meq/L 136-145 code = 381) POTASSIUM (BEAKER) (test 4.6 meq/L 3.5-5.1 code = 379) CHLORIDE (BEAKER) (test 113 meq/L 98-107 code = 382) CO2 (BEAKER) (test code = 32 meq/L 22-29 355) BLOOD UREA NITROGEN 73 mg/dL 7-21 (BEAKER) (test code = 354) CREATININE (BEAKER) (test 1.31 mg/dL 0.57-1.25 code = 358) GLUCOSE RANDOM (BEAKER) 117 mg/dL 70-105 (test code = 652) CALCIUM (BEAKER) (test 7.9 mg/dL 8.4-10.2 code = 697) EGFR (BEAKER) (test code 55 mL/min/1.73 sq m EST IMATED GFR IS NOT = 1092) ACCURATE CREA TININE CLEARANCE IN PRE DICTING GLOMERULAR FILTR ATION RATE. ESTIMATED GFR IS NOT APPLICABLE F OR DIALYSIS PATIENT S. Billing Auditor ID - [id number] 12:34:00 Test Item Value Reference Range Comments PARTIAL THROMBOPLASTIN TIME (BEAKER) (test code 82.8 seconds 22.5-36.0 = 760) SPUTUM CULTURE + GRAM [id number] 11:50:00 Test Item Value Reference Range Comments CULTURE (BEAKER) (test code = 1095) See comment GRAM STAIN RESULT (BEAKER) (test code = 4+ WBCs 1123) GRAM STAIN RESULT (BEAKER) (test code = 0-5 epithelial cells [id number]) GRAM STAIN RESULT (BEAKER) (test code = No organisms seen [id number]) 2+ YeastNo Normal respiratory rigo presentPOCT-GLUCOSE [id number] 11:42:00 Test Item Value Reference Range Comments POC-GLUCOSE METER (BEAKER) 117 mg/dL 70-110 : Pt. refused rpt tst: TESTED (test code = 1538) AT [facility] [address] [facility], [address]: Opera tor/Research Intern ID = [id number] for ELADIA GARCIA BLOOD [id number] 11:00:00 Test Item Value Reference Range Comments CULTURE (BEAKER) (test code = 1095) No growth in 5 days BLOOD [id number] 11:00:00 Test Item Value Reference Range Comments CULTURE (BEAKER) (test code = 1095) No growth in 5 days RAD, CHEST, 1 VIEW, NON [id number] 06:18:00Reason for exam:->ETT, chest tubesShould this be [...] None. Signed: Tomasa Luque MDReport Verified Date/Time: 03/27/2019 06:18:48 [id number] 06:00:00 Test Item Value Reference Range Comments PARTIAL THROMBOPLASTIN TIME (BEAKER) (test code 82.3 seconds 22.5-36.0 = 760) BASIC METABOLIC [id number] 05:35:00 Test Item Value Reference Range Comments SODIUM (BEAKER) (test 145 meq/L 136-145 code = 381) POTASSIUM (BEAKER) (test 4.4 meq/L 3.5-5.1 code = 379) CHLORIDE (BEAKER) (test 112 meq/L 98-107 code = 382) CO2 (BEAKER) (test code = 26 meq/L 22-29 355) BLOOD UREA NITROGEN 79 mg/dL 7-21 (BEAKER) (test code = 354) CREATININE (BEAKER) (test 1.39 mg/dL 0.57-1.25 code = 358) GLUCOSE RANDOM (BEAKER) 120 mg/dL 70-105 (test code = 652) CALCIUM (BEAKER) (test 7.9 mg/dL 8.4-10.2 code = 697) EGFR (BEAKER) (test code 51 mL/min/1.73 sq m EST IMATED GFR IS NOT = 1092) ACCURATE CREA TININE CLEARANCE IN PRE DICTING GLOMERULAR FILTR ATION RATE. ESTIMATED GFR IS NOT APPLICABLE F OR DIALYSIS PATIENT S. Billing Auditor ID - ELISSA MSpecimen slightly [id number] 05:33:00 Test Item Value Reference Range Comments PHOSPHORUS (BEAKER) (test code = 604) 4.7 mg/dL 2.3-4.7 Billing Auditor ID - ELISSA [id number] 05:33:00 Test Item Value Reference Range Comments MAGNESIUM (BEAKER) (test code = 627) 2.2 mg/dL 1.6-2.6 Billing Auditor ID - ELISSA MCBC W/PLT COUNT & AUTO [id number] 05:19:00 Test Item Value Reference Range Comments WHITE BLOOD CELL COUNT (BEAKER) (test code = 15.8 K/ L 3.5 -10.5 775) RED BLOOD CELL COUNT (BEAKER) (test code = 761) 4.00 M/ L 4.63-6.08 HEMOGLOBIN (BEAKER) (test code = 410) 9.9 GM/DL 13.7-17.5 HEMATOCRIT (BEAKER) (test code = 411) 31.5 % 40.1-51.0 MEAN CORPUSCULAR VOLUME (BEAKER) (test code = 78.8 fL 79 .0-92.2 753) MEAN CORPUSCULAR HEMOGLOBIN (BEAKER) (test code 24.8 pg 25.7-32.2 = 751) MEAN CORPUSCULAR HEMOGLOBIN CONC (BEAKER) (test 31.4 GM/DL 32.3-36.5 code = 752) RED CELL DISTRIBUTION WIDTH (BEAKER) (test code 21.5 % 11.6-14.4 = 412) PLATELET COUNT (BEAKER) (test code = 756) 266 K/CU MM 150-45 0 MEAN PLATELET VOLUME (BEAKER) (test code = 754) 11.7 fL 9.4-12.4 NUCLEATED RED BLOOD CELLS (BEAKER) (test code = 0 /100 WBC 0-0 413) NEUTROPHILS RELATIVE PERCENT (BEAKER) (test code 77 % = 429) LYMPHOCYTES RELATIVE PERCENT (BEAKER) (test code 12 % = 430) MONOCYTES RELATIVE PERCENT (BEAKER) (test code = 8 % 431) EOSINOPHILS RELATIVE PERCENT (BEAKER) (test code 2 % = 432) BASOPHILS RELATIVE PERCENT (BEAKER) (test code = 0 % 437) NEUTROPHILS ABSOLUTE COUNT (BEAKER) (test code = 12.15 K/ L 1.78-5.38 670) LYMPHOCYTES ABSOLUTE COUNT (BEAKER) (test code = 1.94 K/ L 1.32-3.57 414) MONOCYTES ABSOLUTE COUNT (BEAKER) (test code = 1.24 K/ L 0 .30-0.82 415) EOSINOPHILS ABSOLUTE COUNT (BEAKER) (test code = 0.28 K/ L 0.04-0.54 416) BASOPHILS ABSOLUTE COUNT (BEAKER) (test code = 0.05 K/ L 0 .01-0.08 417) IMMATURE GRANULOCYTES-RELATIVE PERCENT (BEAKER) 1 % 0-1 (test code = 2801) POCT-GLUCOSE [id number] 05:17:00 Test Item Value Reference Range Comments POC-GLUCOSE METER (BEAKER) 118 mg/dL 70-110 : HEIDI ANNIE AT [address] (test code = 1538) [facility], [address]: Billing Auditor/Technic juana ID = [id number] for OSCAR TEIXEIRA [id number] 20:41:00 Test Item Value Reference Range Comments PARTIAL THROMBOPLASTIN TIME (BEAKER) (test code 36.4 seconds 22.5-36.0 = 760) POCT-GLUCOSE [id number] 18:31:00 Test Item Value Reference Range Comments POC-GLUCOSE METER (BEAKER) 97 mg/dL 70-110 : HEIDI ANNIE AT [place] [id number] [facility] [place] (test code = 1538) [facility], [address]: Billing Auditor/Technic juana ID = [id number] for GILMOREYAMIL BASIC METABOLIC [id number] 18:22:00 Test Item Value Reference Range Comments SODIUM (BEAKER) (test 146 meq/L 136-145 code = 381) POTASSIUM (BEAKER) (test 4.4 meq/L 3.5-5.1 code = 379) CHLORIDE (BEAKER) (test 112 meq/L 98-107 code = 382) CO2 (BEAKER) (test code = 31 meq/L 22- 355) BLOOD UREA NITROGEN 79 mg/dL 7-21 (BEAKER) (test code = 354) CREATININE (BEAKER) (test 1.49 mg/dL 0.57-1.25 code = 358) GLUCOSE RANDOM (BEAKER) 124 mg/dL 70-105 (test code = 652) CALCIUM (BEAKER) (test 7.9 mg/dL 8.4-10.2 code = 697) EGFR (BEAKER) (test code 47 mL/min/1.73 sq m EST IMATED GFR IS NOT = 1092) ACCURATE CREA TININE CLEARANCE IN PRE DICTING GLOMERULAR FILTR ATION RATE. ESTIMATED GFR IS NOT APPLICABLE F OR DIALYSIS PATIENT S. Billing Auditor ID - BSSpecimen slightly [id number] 13:23:00 Test Item Value Reference Range Comments PARTIAL THROMBOPLASTIN TIME (BEAKER) (test code 40.6 seconds 22.5-36.0 = 760) POCT-GLUCOSE [id number] 12:06:00 Test Item Value Reference Range Comments POC-GLUCOSE METER (BEAKER) 113 mg/dL 70-110 : HEIDI ANNIE AT [facility] [address], [place] (test code = 1538) [facility], [address]: Billing Auditor/Technic juana ID = [id number] for YAMIL GILMORE SVITLANA [id number] 10:59:00 Test Item Value Reference Range Comments PARTIAL THROMBOPLASTIN TIME (BEAKER) (test code 61.4 seconds 22.5-36.0 = 760) POCT-GLUCOSE [id number] 06:53:00 Test Item Value Reference Range Comments POC-GLUCOSE METER (BEAKER) 112 mg/dL 70-110 : HEIDI ANNIE AT [place] [id number], [place] (test code = 1538) [facility], [address]: Billing Auditor/Technic juana ID = [id number] for ELSIE MITCHELL RAD, CHEST, 1 VIEW, NON [id number] 05:01:00Reason for exam:->intubated w/ empyemaShould this be performed at the bedside?->YesFINAL REPORT Chest one view. Clinical history: intubated w/ empyema Comparison: Chest radiograph 03/25/2019, 402:00 PM. Technique: A [...] Signed: Nakia Goldstein MDReportVerified Date/Time: 03/26/2019 05:01:34 [id number] 03:48:00 Test Item Value Reference Range Comments PHOSPHORUS (BEAKER) (test code = 604) 3.9 mg/dL 2.3-4.7 Billing Auditor ID - ELISSA [id number] 03:48:00 Test Item Value Reference Range Comments MAGNESIUM (BEAKER) (test code = 627) 2.1 mg/dL 1.6-2.6 Billing Auditor ID - ELISSA MBASIC METAB[employer]IC [id number] 03:48:00 Test Item Value Reference Range Comments SODIUM (BEAKER) (test 147 meq/L 136-145 code = 381) POTASSIUM (BEAKER) (test 4.4 meq/L 3.5-5.1 code = 379) CHLORIDE (BEAKER) (test 112 meq/L 98-107 code = 382) CO2 (BEAKER) (test code = 31 meq/L 22-29 355) BLOOD UREA NITROGEN 74 mg/dL 7-21 (BEAKER) (test code = 354) CREATININE (BEAKER) (test 1.40 mg/dL 0.57-1.25 code = 358) GLUCOSE RANDOM (BEAKER) 120 mg/dL 70-105 (test code = 652) CALCIUM (BEAKER) (test 8.0 mg/dL 8.4-10.2 code = 697) EGFR (BEAKER) (test code 51 mL/min/1.73 sq m EST IMATED GFR IS NOT = 1092) ACCURATE CREA TININE CLEARANCE IN PRE DICTING GLOMERULAR FILTR ATION RATE. ESTIMATED GFR IS NOT APPLICABLE F OR DIALYSIS PATIENT S. Billing Auditor ID - ELISSA MSpecimen slightly [id number] 03:23:00 Test Item Value Reference Range Comments PARTIAL THROMBOPLASTIN TIME (BEAKER) (test code 98.7 seconds 22.5-36.0 = 760) BLOOD GAS, [id number] 03:22:00 Test Item Value Reference Range Comments PH ARTERIAL (BEAKER) (test code = 383) 7.48 7.35-7.45 PCO2 ARTERIAL (BEAKER) (test code = 384) 42 mmHg 35-45 PO2 ARTERIAL (BEAKER) (test code = 385) 128 mmHg 80-90 O2 SATURATION ARTERIAL (BEAKER) (test code = 386) 98.7 % 96.0-97.0 HCO3 ARTERIAL (BEAKER) (test code = 388) 30 mmol/L 21-29 BASE EXCESS ARTERIAL (BEAKER) (test code = 387) 6.4 mmol/L -2.0-3.0 PATIENT TEMPERATURE (BEAKER) (test code = 1818) 37.6 C FIO2 (BEAKER) (test code = 1819) 30.0 % CBC W/PLT COUNT & AUTO [id number] 03:14:00 Test Item Value Reference Range Comments WHITE BLOOD CELL COUNT (BEAKER) (test code = 16.5 K/ L 3.5 -10.5 775) RED BLOOD CELL COUNT (BEAKER) (test code = 761) 4.07 M/ L 4.63-6.08 HEMOGLOBIN (BEAKER) (test code = 410) 10.2 GM/DL 13.7-17.5 HEMATOCRIT (BEAKER) (test code = 411) 31.5 % 40.1-51.0 MEAN CORPUSCULAR VOLUME (BEAKER) (test code = 77.4 fL 79 .0-92.2 753) MEAN CORPUSCULAR HEMOGLOBIN (BEAKER) (test code 25.1 pg 25.7-32.2 = 751) MEAN CORPUSCULAR HEMOGLOBIN CONC (BEAKER) (test 32.4 GM/DL 32.3-36.5 code = 752) RED CELL DISTRIBUTION WIDTH (BEAKER) (test code 20.6 % 11.6-14.4 = 412) PLATELET COUNT (BEAKER) (test code = 756) 265 K/CU MM 150-45 0 MEAN PLATELET VOLUME (BEAKER) (test code = 754) 12.0 fL 9.4-12.4 NUCLEATED RED BLOOD CELLS (BEAKER) (test code = 0 /100 WBC 0-0 413) NEUTROPHILS RELATIVE PERCENT (BEAKER) (test code 76 % = 429) LYMPHOCYTES RELATIVE PERCENT (BEAKER) (test code 12 % = 430) MONOCYTES RELATIVE PERCENT (BEAKER) (test code = 9 % 431) EOSINOPHILS RELATIVE PERCENT (BEAKER) (test code 2 % = 432) BASOPHILS RELATIVE PERCENT (BEAKER) (test code = 0 % 437) NEUTROPHILS ABSOLUTE COUNT (BEAKER) (test code = 12.53 K/ L 1.78-5.38 670) LYMPHOCYTES ABSOLUTE COUNT (BEAKER) (test code = 2.00 K/ L 1.32-3.57 414) MONOCYTES ABSOLUTE COUNT (BEAKER) (test code = 1.49 K/ L 0 .30-0.82 415) EOSINOPHILS ABSOLUTE COUNT (BEAKER) (test code = 0.24 K/ L 0.04-0.54 416) BASOPHILS ABSOLUTE COUNT (BEAKER) (test code = 0.05 K/ L 0 .01-0.08 417) IMMATURE GRANULOCYTES-RELATIVE PERCENT (BEAKER) 1 % 0-1 (test code = 2801) POCT-GLUCOSE [id number] 00:13:00 Test Item Value Reference Range Comments POC-GLUCOSE METER (BEAKER) 115 mg/dL 70-110 : HEIDI ANNIE AT [facility] [address] [place] (test code = 1538) [facility], [address]: Billing Auditor/Technic juana ID = [id number] for Aguilar Reid BASIC METABOLIC [id number] 20:31:00 Test Item Value Reference Range Comments SODIUM (BEAKER) (test 148 meq/L 136-145 code = 381) POTASSIUM (BEAKER) (test 4.3 meq/L 3.5-5.1 code = 379) CHLORIDE (BEAKER) (test 112 meq/L 98-107 code = 382) CO2 (BEAKER) (test code = 32 meq/L 22-29 355) BLOOD UREA NITROGEN 74 mg/dL 7-21 (BEAKER) (test code = 354) CREATININE (BEAKER) (test 1.44 mg/dL 0.57-1.25 code = 358) GLUCOSE RANDOM (BEAKER) 129 mg/dL 70-105 (test code = 652) CALCIUM (BEAKER) (test 8.2 mg/dL 8.4-10.2 code = 697) EGFR (MACYAKER) (test code 49 mL/min/1.73 sq m EST IMATED GFR IS NOT = 1092) ACCURATE CREA TININE CLEARANCE IN PRE DICTING GLOMERULAR FILTR ATION RATE. ESTIMATED GFR IS NOT APPLICABLE F OR DIALYSIS PATIENT S. Billing Auditor ID - BSSpecimen slightly ictericCT, CHEST, WITHOUT [id number] 18:26:00FINAL REPORT CT of the Chest, abdomen [...] aortic aneurysm. Signed: Tomasa Foss MDReport Verified Date/Time: 03/25/2019 18:26:29 Reading Location: [facility] B1 C013Y CT Body Reading Room CT, [id number] 18:26:00FINAL REPORT CT of the Chest, abdomen [...] aortic aneurysm. Signed: Tomasa Foss MDReport Verified Date/Time: 03/25/2019 18:26:29 Reading Location: [facility] C013Y CT Body Reading Room POCT-GLUCOSE [id number] 18:22:00 Test Item Value Reference Range Comments POC-GLUCOSE METER (BEAKER) 95 mg/dL 70-110 : HEIDI ANNIE AT [address] (test code = 1538) [facility], [address]: Billing Auditor/Technic juana ID = [id number] for GILMORE, CHL OE RAD, CHEST, 1 VIEW, NON [id number] 16:20:00Reason for exam:->Central Line PlacementShould this be performed at the bedside?->YesFINAL REPORT Chest, portable AP view History: Central line placement Compariso n: Earlier the same day at four 3:00 [...] tube is in place. Signed: Nato Dang MDRmercyort Verified Date/Time: 03/25/2019 16:20:19 Reading Location: [facility] C013W Consult Reading Room [id number] 15:56:00 Test Item Value Reference Range Comments PARTIAL THROMBOPLASTIN TIME (BEAKER) (test code 83.0 seconds 22.5-36.0 = 760) BRONCHIAL CULTURE + GRAM [id number] 12:23:00 Test Item Value Reference Range Comments CULTURE (BEAKER) (test code = See comment 1095) GRAM STAIN RESULT (BEAKER) (test 4+ WBCs code = 1123) GRAM STAIN RESULT (BEAKER) (test <1+ yeast with pseudohyphae code = 206103) 2+ Yeast with feetNo Normal respiratory rigo presentBASIC METABOLIC PANEL 2019-03-25 12:08:00 Test Item Value Reference Range Comments SODIUM (BEAKER) (test 148 meq/L 136-145 code = 381) POTASSIUM (BEAKER) (test 4.3 meq/L 3.5-5.1 code = 379) CHLORIDE (BEAKER) (test 113 meq/L 98-107 code = 382) CO2 (BEAKER) (test code = 31 meq/L 22-29 355) BLOOD UREA NITROGEN 71 mg/dL 7-21 (BEAKER) (test code = 354) CREATININE (BEAKER) (test 1.30 mg/dL 0.57-1.25 code = 358) GLUCOSE RANDOM (BEAKER) 118 mg/dL 70-105 (test code = 652) CALCIUM (BEAKER) (test 8.0 mg/dL 8.4-10.2 code = 697) EGFR (BEAKER) (test code 56 mL/min/1.73 sq m EST IMATED GFR IS NOT = 1092) ACCURATE CREA TININE CLEARANCE IN PRE DICTING GLOMERULAR FILTR ATION RATE. ESTIMATED GFR IS NOT APPLICABLE F OR DIALYSIS PATIENT S. Billing Auditor ID - LENNY MBLOOD GAS, [id number] 12:00:00 Test Item Value Reference Range Comments PH ARTERIAL (BEAKER) (test code = 383) 7.48 7.35-7.45 PCO2 ARTERIAL (BEAKER) (test code = 384) 43 mmHg 35-45 PO2 ARTERIAL (BEAKER) (test code = 385) 247 mmHg 80-90 O2 SATURATION ARTERIAL (BEAKER) (test code = 386) 99.6 % 96.0-97.0 HCO3 ARTERIAL (BEAKER) (test code = 388) 31 mmol/L 21-29 BASE EXCESS ARTERIAL (BEAKER) (test code = 387) 6.6 mmol/L -2.0-3.0 PATIENT TEMPERATURE (BEAKER) (test code = 1818) 37.3 C FIO2 (BEAKER) (test code = 1819) 30.0 % POCT-GLUCOSE [id number] 11:51:00 Test Item Value Reference Range Comments POC-GLUCOSE METER (BEAKER) 114 mg/dL 70-110 : HIEDI ANNIE AT [facility] [address], [place] (test code = 1538) [facility], [address]: Billing Auditor/Technic juana ID = [id number] for GILMORE, CHL OE BODY FLUID CULTURE + GRAM [id number] 10:54:00 Test Item Value Reference Range Comments CULTURE (BEAKER) (test code = 1095) No growth GRAM STAIN RESULT (BEAKER) (test code = 2+ WBCs 1123) GRAM STAIN RESULT (BEAKER) (test code = No organisms seen 33320) BODY FLUID CULTURE + GRAM [id number] 10:54:00 Test Item Value Reference Range Comments CULTURE (BEAKER) (test code = 1095) No growth GRAM STAIN RESULT (BEAKER) (test code = 1+ WBCs 1123) GRAM STAIN RESULT (BEAKER) (test code = No organisms seen 65836) URINALYSIS W/ REFLEX URINE [id number] 10:03:00 Test Item Value Reference Range Comments COLOR (BEAKER) (test code = 470) Yellow CLARITY (BEAKER) (test code = 469) Hazy SPECIFIC GRAVITY UA (BEAKER) (test code = 468) 1.018 1 .001-1.035 PH UA (BEAKER) (test code = 467) 5.5 5.0-8.0 PROTEIN UA (BEAKER) (test code = 464) 50 mg/dL Negative GLUCOSE UA (BEAKER) (test code = 365) Negative Negative KETONES UA (BEAKER) (test code = 371) Negative Negative BILIRUBIN UA (BEAKER) (test code = 462) Negative Negative BLOOD UA (BEAKER) (test code = 461) Small Negative NITRITE UA (BEAKER) (test code = 465) Negative Negative LEUKOCYTE ESTERASE UA (BEAKER) (test code = 466) Large Negative UROBILINOGEN UA (BEAKER) (test code = 463) 6.0 mg/dL 0.2-1 .0 RBC UA (BEAKER) (test code = 519) < /HPF WBC UA (BEAKER) (test code = 520) 54 /HPF BACTERIA (BEAKER) (test code = 517) Few MUCUS (BEAKER) (test code = 1574) Few SQUAMOUS EPITHELIAL (BEAKER) (test code = 516) < /HPF HYALINE CASTS (BEAKER) (test code = 514) 1 /LPF SOURCE(BEAKER) (test code = 2795) Billing Auditor ID - [auto]Billing Auditor ID - [id number] 09:58:00 Test Item Value Reference Range Comments PARTIAL THROMBOPLASTIN TIME (BEAKER) (test code 83.1 seconds 22.5-36.0 = 760) BLOOD [id number] 07:00:00 Test Item Value Reference Range Comments CULTURE (BEAKER) (test code = 1095) No growth in 5 days RAD, CHEST, 1 VIEW, NON [id number] 06:48:00Reason for exam:->intubated w/ empyemaShould this be performed at the bedside?->YesFINAL REPORT RAD, CHEST, 1 VIEW, NON DEPT INDICATION: intubated w/ empyema COM PARISON: Exam from 10 hours prior FINDINGS: Portable [...] Stable surgical changes.Additional findings: None. Signed: Tomasa Luqueepanni Verified Date/Time: 03/25/2019 06:48:46 POCT-GLUCOSE [id number] 06:17:00 Test Item Value Reference Range Comments POC-GLUCOSE METER (BEAKER) 101 mg/dL 70-110 : HEIDI ANNIE AT [facility] [address] [place] (test code = 1538) [place], [address]: Billing Auditor/Technic juana ID = [id number] for ANN BOLDEN CBC W/PLT COUNT & AUTO [id number] 04:23:00 Test Item Value Reference Range Comments WHITE BLOOD CELL COUNT (BEAKER) (test code = 16.5 K/ L 3.5 -10.5 775) RED BLOOD CELL COUNT (BEAKER) (test code = 761) 4.28 M/ L 4.63-6.08 HEMOGLOBIN (BEAKER) (test code = 410) 10.6 GM/DL 13.7-17.5 HEMATOCRIT (BEAKER) (test code = 411) 33.2 % 40.1-51.0 MEAN CORPUSCULAR VOLUME (BEAKER) (test code = 77.6 fL 79 .0-92.2 753) MEAN CORPUSCULAR HEMOGLOBIN (BEAKER) (test code 24.8 pg 25.7-32.2 = 751) MEAN CORPUSCULAR HEMOGLOBIN CONC (BEAKER) (test 31.9 GM/DL 32.3-36.5 code = 752) RED CELL DISTRIBUTION WIDTH (BEAKER) (test code 21.1 % 11.6-14.4 = 412) PLATELET COUNT (BEAKER) (test code = 756) 230 K/CU MM 150-45 0 MEAN PLATELET VOLUME (BEAKER) (test code = 754) 12.8 fL 9.4-12.4 NUCLEATED RED BLOOD CELLS (BEAKER) (test code = 0 /100 WBC 0-0 413) NEUTROPHILS RELATIVE PERCENT (BEAKER) (test code 79 % = 429) LYMPHOCYTES RELATIVE PERCENT (BEAKER) (test code 10 % = 430) MONOCYTES RELATIVE PERCENT (BEAKER) (test code = 8 % 431) EOSINOPHILS RELATIVE PERCENT (BEAKER) (test code 2 % = 432) BASOPHILS RELATIVE PERCENT (BEAKER) (test code = 0 % 437) NEUTROPHILS ABSOLUTE COUNT (BEAKER) (test code = 12.98 K/ L 1.78-5.38 670) LYMPHOCYTES ABSOLUTE COUNT (BEAKER) (test code = 1.72 K/ L 1.32-3.57 414) MONOCYTES ABSOLUTE COUNT (BEAKER) (test code = 1.33 K/ L 0 .30-0.82 415) EOSINOPHILS ABSOLUTE COUNT (BEAKER) (test code = 0.29 K/ L 0.04-0.54 416) BASOPHILS ABSOLUTE COUNT (BEAKER) (test code = 0.05 K/ L 0 .01-0.08 417) IMMATURE GRANULOCYTES-RELATIVE PERCENT (BEAKER) 1 % 0-1 (test code = 2801) BLOOD [id number] 04:02:00 Test Item Value Reference Range Comments CULTURE (BEAKER) (test code = 1095) No growth in 5 days BASIC METABOLIC [id number] 03:59:00 Test Item Value Reference Range Comments SODIUM (BEAKER) (test 146 meq/L 136-145 code = 381) POTASSIUM (BEAKER) (test 4.3 meq/L 3.5-5.1 code = 379) CHLORIDE (BEAKER) (test 112 meq/L 98-107 code = 382) CO2 (BEAKER) (test code = 29 meq/L 22-29 355) BLOOD UREA NITROGEN 72 mg/dL 7-21 (BEAKER) (test code = 354) CREATININE (BEAKER) (test 1.29 mg/dL 0.57-1.25 code = 358) GLUCOSE RANDOM (BEAKER) 113 mg/dL 70-105 (test code = 652) CALCIUM (BEAKER) (test 7.8 mg/dL 8.4-10.2 code = 697) EGFR (BEAKER) (test code 56 mL/min/1.73 sq m EST IMATED GFR IS NOT = 1092) ACCURATE CREA TININE CLEARANCE IN PRE DICTING GLOMERULAR FILTR ATION RATE. ESTIMATED GFR IS NOT APPLICABLE F OR DIALYSIS PATIENT S. Billing Auditor ID - ELISSA MSpecimen slightly [id number] 03:57:00 Test Item Value Reference Range Comments PHOSPHORUS (BEAKER) (test code = 604) 2.8 mg/dL 2.3-4.7 Billing Auditor ID - ELISSA [id number] 03:57:00 Test Item Value Reference Range Comments MAGNESIUM (BEAKER) (test code = 627) 2.0 mg/dL 1.6-2.6 Billing Auditor ID - ELISSA [id number] 03:30:00 Test Item Value Reference Range Comments PARTIAL THROMBOPLASTIN TIME (BEAKER) (test code 63.6 seconds 22.5-36.0 = 760) POCT-GLUCOSE [id number] 00:15:00 Test Item Value Reference Range Comments POC-GLUCOSE METER (BEAKER) 110 mg/dL 70-110 : HEIDI ANNIE AT [facility] [address] (test code = 1538) [place], [address]: Billing Auditor/Technic juana ID = [id number] for ANN BOLDEN [id number] 21:11:00 Test Item Value Reference Range Comments PARTIAL THROMBOPLASTIN TIME (BEAKER) (test code 68.8 seconds 22.5-36.0 = 760) BASIC METABOLIC [id number] 21:09:00 Test Item Value Reference Range Comments SODIUM (BEAKER) (test 147 meq/L 136-145 code = 381) POTASSIUM (BEAKER) (test 4.3 meq/L 3.5-5.1 code = 379) CHLORIDE (BEAKER) (test 111 meq/L 98-107 code = 382) CO2 (BEAKER) (test code = 33 meq/L 22-29 355) BLOOD UREA NITROGEN 66 mg/dL 7-21 (BEAKER) (test code = 354) CREATININE (BEAKER) (test 1.44 mg/dL 0.57-1.25 code = 358) GLUCOSE RANDOM (BEAKER) 121 mg/dL 70-105 (test code = 652) CALCIUM (BEAKER) (test 8.3 mg/dL 8.4-10.2 code = 697) EGFR (BEAKER) (test code 49 mL/min/1.73 sq m EST IMATED GFR IS NOT = 1092) ACCURATE CREA TININE CLEARANCE IN PRE DICTING GLOMERULAR FILTR ATION RATE. ESTIMATED GFR IS NOT APPLICABLE F OR DIALYSIS PATIENT S. Billing Auditor ID - JOSE Castellano slightly ictericRAD, ABDOMEN/KUB, 1 VIEW AP 2019-03-24 19:29:00Reason for exam:->NGT fell outAddendum BeginsREPORT STATUS:A Two views were obtained. Signed: Nova Salazar MDReport Verified Date/Time: 03/24/2019 19:29:02 Reading Location: [address] Consult Reading RoomAddendum EndsFINAL REPORT Abdomen. HISTORY: Nasogastric tube fell out. COMPARISON STUDY: None available FINDINGS: A single supine view the abdomen demonstrates a nasogastric tube in place, the tip projecting over the distal stomach. No dilated loops of bowel are seen. Degenerative changes are noted. This film is insensitive for the detection of free air. Signed: Nova Salazar MDReport Verified Date/Time: 03/24/2019 19:24:17 Reading Location: [facility] C013 Consult Reading Room POCT- GLUCOSE [id number] 18:19:00 Test Item Value Reference Range Comments POC-GLUCOSE METER (BEAKER) 97 mg/dL 70-110 : HEIDI ANNIE AT [facility] [address] [facility]test code = 1538[facility], [address]: Billing Auditor/Technic juana ID = [id number] for GILMORE, CHL OE RAD, CHEST, 1 VIEW, NON [id number] 18:11:00Reason for exam:->Chest tube placement, possible dislodgementShould this be performed at the bedside?->Yes FINAL REPORT Portable chest. CLINICAL HISTORY: Chest tube [...] MDReport Verified Date/Time: 03/24/2019 18:11:57 Reading Location: [facility] C013 Consult Reading Room BODY FLUID CULTURE + GRAM [id number] 16:09:00 Test Item Value Reference Range Comments CULTURE (BEAKER) (test code = No growth 1095) GRAM STAIN RESULT (BEAKER) (test 1+ White blood cells seen code = 1123) GRAM STAIN RESULT (BEAKER) (test No organisms seen code = 17866) BRONCHIAL CULTURE + GRAM [id number] 14:05:00 Test Item Value Reference Range Comments CULTURE (BEAKER) (test code = 1095) No growth GRAM STAIN RESULT (BEAKER) (test code = <1+ WBCs 1123) GRAM STAIN RESULT (BEAKER) (test code = No organisms seen 70078) BASIC METABOLIC [id number] 13:09:00 Test Item Value Reference Range Comments SODIUM (BEAKER) (test 146 meq/L 136-145 code = 381) POTASSIUM (BEAKER) (test 4.3 meq/L 3.5-5.1 code = 379) CHLORIDE (BEAKER) (test 112 meq/L 98-107 code = 382) CO2 (BEAKER) (test code = 31 meq/L 22-29 355) BLOOD UREA NITROGEN 63 mg/dL 7-21 (BEAKER) (test code = 354) CREATININE (BEAKER) (test 1.42 mg/dL 0.57-1.25 code = 358) GLUCOSE RANDOM (BEAKER) 119 mg/dL 70-105 (test code = 652) CALCIUM (BEAKER) (test 8.1 mg/dL 8.4-10.2 code = 697) EGFR (BEAKER) (test code 50 mL/min/1.73 sq m EST IMATED GFR IS NOT = 1092) ACCURATE CREA TININE CLEARANCE IN PRE DICTING GLOMERULAR FILTR ATION RATE. ESTIMATED GFR IS NOT APPLICABLE F OR DIALYSIS PATIENT S. Billing Auditor ID - SONIA [id number] 13:04:00 Test Item Value Reference Range Comments PARTIAL THROMBOPLASTIN TIME (BEAKER) (test code 58.9 seconds 22.5-36.0 = 760) EEG EXTENDED MONITORING, 40-60 [id number] 12:32:00For STAT EEG- after 5 PM weekdays, weekends and holidays, page the on-call EEG TechReason for exam:-& gt;Concern for Subclinical StatusShould this be performed at the bedside?->YesDate(s) of EE03/24/2019 DATE OF REPORT: 03/24/2019ACC: [id number] Number: [id number] Location: Inpatient ICUStart time: 03/24/2019 10:42Stop time: 03/24/2019 11:23ICD-10: R56.9 CPT Code: 54717 HISTORY: 63 y.o. male with hypertension, diastolic heart failure, chronic kidney disease who was transferred to [facility] for effusions and remains altered with concern for subclinical status epilepticus. MEDICATIONS THAT COULD AFFECT EEG: Dexmedetomidine TECHNICAL SUMMARY: This is a digital video-EEG recorded with 32 input channels reviewed with bipolar and referential montages using the modifie d combinatorial system nomenclature. DESCRIPTION OF RECORD: During [...] to: 1) Generalized slowing of background rhythms, mild- moderate. 2) Occasional, generalized periodic discharges (1 - 1.5 cycles per second) CLINICAL CORRELATION: Generalized slowing as seen in this record is consistent with an etiology non-specific mild to moderate encephalopathy. Generalized periodic discharges are a non-specific findings or cortical irritability and can be seen in the setting of ischemia, inflammation, aftermath of earlier seizure activity, other ALUM OPERATOR insult, or toxic-metabolic derangements. An EEG without epileptiform discharges does not exclude the possibility of epilepsy. If the clinical suspicion of epilepsy remains, consider additional EEG recordings. Nando Metz MDNeurophysiology Fellow Elia Martinez M.D., FACNS, FAAN, FAESProfessor of Neurology, [facility] College of MedicineDirector, [facility] Comprehensive Epilepsy CenterJohn Saab [facility]phys[facility] at [place], [place] -GLUCOSE [id number] 12:29:00 Test Item Value Reference Range Comments POC-GLUCOSE METER (BEAKER) 109 mg/dL 70-110 : HEIDI ANNIE AT [facility] [address] [place] (test code = 1538) [facility], [address]: Billing Auditor/Technic juana ID = [id number] for YAMIL GILMORE BLOOD GAS, [id number] 12:11:00 Test Item Value Reference Range Comments PH ARTERIAL (BEAKER) (test code = 383) 7.47 7.35-7.45 PCO2 ARTERIAL (BEAKER) (test code = 384) 46 mmHg 35-45 PO2 ARTERIAL (BEAKER) (test code = 385) 96 mmHg 80-90 O2 SATURATION ARTERIAL (BEAKER) (test code = 386) 97.7 % 96.0-97.0 HCO3 ARTERIAL (BEAKER) (test code = 388) 33 mmol/L 21-29 BASE EXCESS ARTERIAL (BEAKER) (test code = 387) 7.9 mmol/L -2.0-3.0 PATIENT TEMPERATURE (BEAKER) (test code = 1818) 36.8 C FIO2 (BEAKER) (test code = 1819) 30.0 % POCT-GLUCOSE [id number] 06:09:00 Test Item Value Reference Range Comments POC-GLUCOSE METER (BEAKER) 122 mg/dL 70-110 : HEIDI ANNIE AT [facility] [address] [place] (test code = 1538) [facility], [address]: Billing Auditor/Technic juana ID = [id number] for RAVI BENDER BLOOD GAS, [id number] 05:35:00 Test Item Value Reference Range Comments PH ARTERIAL (BEAKER) (test code = 383) 7.50 7.35-7.45 PCO2 ARTERIAL (BEAKER) (test code = 384) 40 mmHg 35-45 PO2 ARTERIAL (BEAKER) (test code = 385) 107 mmHg 80-90 O2 SATURATION ARTERIAL (BEAKER) (test code = 386) 98.3 % 96.0-97.0 HCO3 ARTERIAL (BEAKER) (test code = 388) 31 mmol/L 21-29 BASE EXCESS ARTERIAL (BEAKER) (test code = 387) 6.9 mmol/L -2.0-3.0 PATIENT TEMPERATURE (BEAKER) (test code = 1818) 37.0 C FIO2 (BEAKER) (test code = 1819) 30.0 % [id number] 05:09:00 Test Item Value Reference Range Comments PHOSPHORUS (BEAKER) (test code = 604) 3.2 mg/dL 2.3-4.7 Billing Auditor ID - SANDRA [id number] 05:09:00 Test Item Value Reference Range Comments MAGNESIUM (BEAKER) (test code = 627) 1.9 mg/dL 1.6-2.6 Billing Auditor ID - SANDRA WBASIC METABOLIC [id number] 05:09:00 Test Item Value Reference Range Comments SODIUM (BEAKER) (test 147 meq/L 136-145 code = 381) POTASSIUM (BEAKER) (test 4.2 meq/L 3.5-5.1 code = 379) CHLORIDE (BEAKER) (test 114 meq/L 98-107 code = 382) CO2 (BEAKER) (test code = 30 meq/L 22-29 355) BLOOD UREA NITROGEN 61 mg/dL 7-21 (BEAKER) (test code = 354) CREATININE (BEAKER) (test 1.52 mg/dL 0.57-1.25 code = 358) GLUCOSE RANDOM (BEAKER) 120 mg/dL 70-105 (test code = 652) CALCIUM (BEAKER) (test 8.1 mg/dL 8.4-10.2 code = 697) EGFR (BEAKER) (test code 46 mL/min/1.73 sq m EST IMATED GFR IS NOT = 1092) ACCURATE CREA TININE CLEARANCE IN PRE DICTING GLOMERULAR FILTR ATION RATE. ESTIMATED GFR IS NOT APPLICABLE F OR DIALYSIS PATIENT S. Billing Auditor ID Sultana FLORES WSpecimen slightly [id number] 04:59:00 Test Item Value Reference Range Comments PARTIAL THROMBOPLASTIN TIME (BEAKER) (test code 61.1 seconds 22.5-36.0 = 760) CBC W/PLT COUNT & AUTO [id number] 04:52:00 Test Item Value Reference Range Comments WHITE BLOOD CELL COUNT (BEAKER) (test code = 18.3 K/ L 3.5 -10.5 775) RED BLOOD CELL COUNT (BEAKER) (test code = 761) 4.19 M/ L 4.63-6.08 HEMOGLOBIN (BEAKER) (test code = 410) 10.1 GM/DL 13.7-17.5 HEMATOCRIT (BEAKER) (test code = 411) 32.3 % 40.1-51.0 MEAN CORPUSCULAR VOLUME (BEAKER) (test code = 77.1 fL 79 .0-92.2 753) MEAN CORPUSCULAR HEMOGLOBIN (BEAKER) (test code 24.1 pg 25.7-32.2 = 751) MEAN CORPUSCULAR HEMOGLOBIN CONC (BEAKER) (test 31.3 GM/DL 32.3-36.5 code = 752) RED CELL DISTRIBUTION WIDTH (BEAKER) (test code 19.8 % 11.6-14.4 = 412) PLATELET COUNT (BEAKER) (test code = 756) 252 K/CU MM 150-45 0 MEAN PLATELET VOLUME (BEAKER) (test code = 754) 12.2 fL 9.4-12.4 NUCLEATED RED BLOOD CELLS (BEAKER) (test code = 0 /100 WBC 0-0 413) NEUTROPHILS RELATIVE PERCENT (BEAKER) (test code 82 % = 429) LYMPHOCYTES RELATIVE PERCENT (BEAKER) (test code 9 % = 430) MONOCYTES RELATIVE PERCENT (BEAKER) (test code = 8 % 431) EOSINOPHILS RELATIVE PERCENT (BEAKER) (test code 1 % = 432) BASOPHILS RELATIVE PERCENT (BEAKER) (test code = 0 % 437) NEUTROPHILS ABSOLUTE COUNT (BEAKER) (test code = 15.00 K/ L 1.78-5.38 670) LYMPHOCYTES ABSOLUTE COUNT (BEAKER) (test code = 1.56 K/ L 1.32-3.57 414) MONOCYTES ABSOLUTE COUNT (BEAKER) (test code = 1.37 K/ L 0 .30-0.82 415) EOSINOPHILS ABSOLUTE COUNT (BEAKER) (test code = 0.17 K/ L 0.04-0.54 416) BASOPHILS ABSOLUTE COUNT (BEAKER) (test code = 0.04 K/ L 0 .01-0.08 417) IMMATURE GRANULOCYTES-RELATIVE PERCENT (BEAKER) 1 % 0-1 (test code = 2801) RAD, CHEST, 1 VIEW, NON [id number] 03:57:00Reason for exam:->intubated w/ empyemaShould this be performed at the bedside?->YesFINAL REPORT RAD, CHEST, 1 VIEW, NON DEPT INDICATION: intubated w/ empyema COM PARISON: Prior day's exam FINDINGS: Portable frontal view of the chest. IMPRESSION: Support Lines: Stable. Lungs and pleura: Unchanged airspace and pleural opacities given variation in positioning. No pneumothorax.Heart and mediastinum: Stable contours. Additional findings: None. Signed: Tomasa Luque Verified Date/Time: 03/24/2019 03:57:49 VANCOMYCIN LEVEL, [id number] 01:53:00 Test Item Value Reference Range Comments VANCOMYCIN TROUGH (BEAKER) (test code = 522) 17.9 ug/mL 10. 0-20.0 Billing Auditor ID - SANDRA KIMT, BRAIN, WITHOUT [id number] 01:31:00FINAL REPORT EXAM: CT head without contrast. [...] intracranial calcific atherosclerosis.There is no acute intracranial hemorrhage, extra-axial fluid collection, mass effect, herniation, hydrocephalus [...] for acute intracranial pathology persists. Signed: Nakia Goldsteinort Verified Date/Time: 03/24/2019 01:31:09 POCT-GLUCOSE [id number] 00:17:00 Test Item Value Reference Range Comments POC-GLUCOSE METER (BEAKER) 122 mg/dL 70-110 : HEIDI ANNIE AT [facility] [address] (test code = 1538) [place], [address]: Billing Auditor/Technic juana ID = [id number] for RAVI BENDER BASIC METABOLIC [id number] 21:04:00 Test Item Value Reference Range Comments SODIUM (BEAKER) (test 146 meq/L 136-145 code = 381) POTASSIUM (BEAKER) (test 4.2 meq/L 3.5-5.1 code = 379) CHLORIDE (BEAKER) (test 111 meq/L 98-107 code = 382) CO2 (BEAKER) (test code = 29 meq/L 22-29 355) BLOOD UREA NITROGEN 57 mg/dL 7-21 (BEAKER) (test code = 354) CREATININE (BEAKER) (test 1.55 mg/dL 0.57-1.25 code = 358) GLUCOSE RANDOM (BEAKER) 116 mg/dL 70-105 (test code = 652) CALCIUM (BEAKER) (test 7.8 mg/dL 8.4-10.2 code = 697) EGFR (BEAKER) (test code 45 mL/min/1.73 sq m EST IMATED GFR IS NOT = 1092) ACCURATE CREA TININE CLEARANCE IN PRE DICTING GLOMERULAR FILTR ATION RATE. ESTIMATED GFR IS NOT APPLICABLE F OR DIALYSIS PATIENT S. Billing Auditor ID - KENNSpecimen slightly ictericBASIC METABOLIC [id number] 16:30:00 Test Item Value Reference Range Comments SODIUM (BEAKER) (test 148 meq/L 136-145 code = 381) POTASSIUM (BEAKER) (test 4.2 meq/L 3.5-5.1 code = 379) CHLORIDE (BEAKER) (test 111 meq/L 98-107 code = 382) CO2 (BEAKER) (test code = 32 meq/L 22-29 355) BLOOD UREA NITROGEN 56 mg/dL 7-21 (BEAKER) (test code = 354) CREATININE (BEAKER) (test 1.60 mg/dL 0.57-1.25 code = 358) GLUCOSE RANDOM (BEAKER) 117 mg/dL 70-105 (test code = 652) CALCIUM (BEAKER) (test 7.9 mg/dL 8.4-10.2 code = 697) EGFR (BEAKER) (test code 44 mL/min/1.73 sq m EST IMATED GFR IS NOT = 1092) ACCURATE CREA TININE CLEARANCE IN PRE DICTING GLOMERULAR FILTR ATION RATE. ESTIMATED GFR IS NOT APPLICABLE F OR DIALYSIS PATIENT S. Billing Auditor ID Sultana MARQUEZ WHEPATIC FUNCTION [id number] 16:22:00 Test Item Value Reference Range Comments TOTAL PROTEIN (BEAKER) (test code = 770) 5.3 gm/dL 6.0-8.3 ALBUMIN (BEAKER) (test code = 1145) 2.4 g/dL 3.5-5.0 BILIRUBIN TOTAL (BEAKER) (test code = 377) 2.6 mg/dL 0.2-1 .2 BILIRUBIN DIRECT (BEAKER) (test code = 706) 1.7 mg/dL 0.1- 0.5 ALKALINE PHOSPHATASE (BEAKER) (test code = 346) 59 U/L 40-150 AST (SGOT) (BEAKER) (test code = 353) 24 U/L 5-34 ALT (SGPT) (BEAKER) (test code = 347) 7 U/L 6-55 Billing Auditor ID - ALMA [id number] 16:05:00 Test Item Value Reference Range Comments AMMONIA (BEAKER) (test code = 348) 29 mol/L 18-72 Billing Auditor ID Sultana MARQUEZ WMRSA [id number] 11:27:00 Test Item Value Reference Range Comments CULTURE (BEAKER) (test code = 1095) No MRSA isolated CBC W/PLT COUNT & AUTO [id number] 10:18:00 Test Item Value Reference Range Comments WHITE BLOOD CELL COUNT (BEAKER) (test code = 24.4 K/ L 3.5 -10.5 775) RED BLOOD CELL COUNT (BEAKER) (test code = 761) 4.32 M/ L 4.63-6.08 HEMOGLOBIN (BEAKER) (test code = 410) 10.4 GM/DL 13.7-17.5 HEMATOCRIT (BEAKER) (test code = 411) 33.1 % 40.1-51.0 MEAN CORPUSCULAR VOLUME (BEAKER) (test code = 76.6 fL 79 .0-92.2 753) MEAN CORPUSCULAR HEMOGLOBIN (BEAKER) (test code 24.1 pg 25.7-32.2 = 751) MEAN CORPUSCULAR HEMOGLOBIN CONC (BEAKER) (test 31.4 GM/DL 32.3-36.5 code = 752) RED CELL DISTRIBUTION WIDTH (BEAKER) (test code 19.4 % 11.6-14.4 = 412) PLATELET COUNT (BEAKER) (test code = 756) 250 K/CU MM 150-45 0 MEAN PLATELET VOLUME (BEAKER) (test code = 754) 11.9 fL 9.4-12.4 NUCLEATED RED BLOOD CELLS (BEAKER) (test code = 0 /100 WBC 0-0 413) (CELLAVISION MANUAL DIFF)2019-03-23 10:18:00 Test Item Value Reference Range Comments NEUTROPHILS - REL (CELLAVISION)(BEAKER) (test 93 % code = 2816) LYMPHOCYTES - REL (CELLAVISION)(BEAKER) (test 4 % code = 2817) MONOCYTES - REL (CELLAVISION)(BEAKER) (test code 2 % = 2818) ATYPICAL LYMPHOCYTES - REL (CELLAVISION)(BEAKER) 1 % 0-0 (test code = 2829) NEUTROPHILS - ABS (CELLAVISION)(BEAKER) (test 22.69 K/ul 1. 78-5.38 code = 2830) LYMPHOCYTES - ABS (CELLAVISION)(BEAKER) (test 0.98 K/ul 1. 32-3.57 code = 2831) MONOCYTES - ABS (CELLAVISION)(BEAKER) (test code 0.49 K/uL 0.30-0.82 = 2832) ATYPICAL LYMPHOCYTES - ABS (CELLAVISION)(BEAKER) 0.24 K/uL 0.00-0.00 (test code = 2858) TOTAL COUNTED (BEAKER) (test code = 1351) 100 WBC MORPHOLOGY (BEAKER) (test code = 487) Normal PLT MORPHOLOGY (BEAKER) (test code = 486) Normal ANISOCYTOSIS (BEAKER) (test code = 961) 1+ few POIKILOCYTES (BEAKER) (test code = 966) 1+ few OVALOCYTES (BEAKER) (test code = 477) 1+ few BAN CELLS (BEAKER) (test code = 474) 1+ few ARTIFACT (CELLAVISION)(BEAKER) (test code = 3432) Present PLATELET CONCENTRATION (CELLAVISION)(BEAKER) Adequate (test code = 3438) Billing Auditor ID Sultana Sierra OverholtUser comments: Slide comments:SPIN/CONCENTRATION [id number] 10:03:00 Test Item Value Reference Range Comments CONCENTRATION CHARGED (BEAKER) (test code = 2657) Done SPIN/CONCENTRATION [id number] 10:03:00 Test Item Value Reference Range Comments CONCENTRATION CHARGED (BEAKER) (test code = 2657) Done SPIN/CONCENTRATION [id number] 10:03:00 Test Item Value Reference Range Comments CONCENTRATION CHARGED (BEAKER) (test code = 2657) Done [id number] 07:00:00 Test Item Value Reference Range Comments PARTIAL THROMBOPLASTIN TIME (BEAKER) (test code 70.1 seconds 22.5-36.0 = 760) [id number] 06:46:00 Test Item Value Reference Range Comments PHOSPHORUS (BEAKER) (test code = 604) 2.8 mg/dL 2.3-4.7 Billing Auditor ID - SANDRA [id number] 06:46:00 Test Item Value Reference Range Comments MAGNESIUM (BEAKER) (test code = 627) 1.9 mg/dL 1.6-2.6 Billing Auditor ID - SANDRA WBASIC METABOLIC [id number] 06:46:00 Test Item Value Reference Range Comments SODIUM (BEAKER) (test 146 meq/L 136-145 code = 381) POTASSIUM (BEAKER) (test 3.7 meq/L 3.5-5.1 code = 379) CHLORIDE (BEAKER) (test 110 meq/L 98-107 code = 382) CO2 (BEAKER) (test code = 30 meq/L 22-29 355) BLOOD UREA NITROGEN 51 mg/dL 7-21 (BEAKER) (test code = 354) CREATININE (BEAKER) (test 1.50 mg/dL 0.57-1.25 code = 358) GLUCOSE RANDOM (BEAKER) 138 mg/dL 70-105 (test code = 652) CALCIUM (BEAKER) (test 8.0 mg/dL 8.4-10.2 code = 697) EGFR (BEAKER) (test code 47 mL/min/1.73 sq m EST IMATED GFR IS NOT = 1092) ACCURATE CREA TININE CLEARANCE IN PRE DICTING GLOMERULAR FILTR ATION RATE. ESTIMATED GFR IS NOT APPLICABLE F OR DIALYSIS PATIENT S. Billing Auditor ID - SANDRA WSpecimecely slightly ictericBLOOD GAS, [id number] 06:18:00 Test Item Value Reference Range Comments PH ARTERIAL (BEAKER) (test code = 383) 7.53 7.35-7.45 PCO2 ARTERIAL (BEAKER) (test code = 384) 38 mmHg 35-45 PO2 ARTERIAL (BEAKER) (test code = 385) 83 mmHg 80-90 O2 SATURATION ARTERIAL (BEAKER) (test code = 386) 97.2 % 96.0-97.0 HCO3 ARTERIAL (BEAKER) (test code = 388) 31 mmol/L 21-29 BASE EXCESS ARTERIAL (BEAKER) (test code = 387) 7.8 mmol/L -2.0-3.0 PATIENT TEMPERATURE (BEAKER) (test code = 1818) 37.0 C FIO2 (BEAKER) (test code = 1819) 30.0 % POCT-GLUCOSE [id number] 05:36:00 Test Item Value Reference Range Comments POC-GLUCOSE METER (BEAKER) 122 mg/dL 70-110 : HEIDI ANNIE AT [address] (test code = 1538) [facility] [address]: Billing Auditor/Technic juana ID = [id number] for RAVI BENDER [id number] 00:47:00 Test Item Value Reference Range Comments PARTIAL THROMBOPLASTIN TIME (BEAKER) (test code 62.9 seconds 22.5-36.0 = 760) POCT-GLUCOSE [id number] 00:39:00 Test Item Value Reference Range Comments POC-GLUCOSE METER (BEAKER) 131 mg/dL 70-110 : HEIDI ANNIE AT [address] (test code = 1538) [facility] [address]: Billing Auditor/Technic juana ID = [id number] for RAVI BENDER BASIC METABOLIC [id number] 20:51:00 Test Item Value Reference Range Comments SODIUM (BEAKER) (test 147 meq/L 136-145 code = 381) POTASSIUM (BEAKER) (test 4.2 meq/L 3.5-5.1 code = 379) CHLORIDE (BEAKER) (test 108 meq/L 98-107 code = 382) CO2 (BEAKER) (test code = 35 meq/L 22-29 355) BLOOD UREA NITROGEN 43 mg/dL 7-21 (BEAKER) (test code = 354) CREATININE (BEAKER) (test 1.59 mg/dL 0.57-1.25 code = 358) GLUCOSE RANDOM (BEAKER) 133 mg/dL 70-105 (test code = 652) CALCIUM (BEAKER) (test 8.2 mg/dL 8.4-10.2 code = 697) EGFR (BEAKER) (test code 44 mL/min/1.73 sq m EST IMATED GFR IS NOT = 1092) ACCURATE CREA TININE CLEARANCE IN PRE DICTING GLOMERULAR FILTR ATION RATE. ESTIMATED GFR IS NOT APPLICABLE F OR DIALYSIS PATIENT S. Billing Auditor ID - ELISSA MSpecimen slightly ictericPT/[id number] 17:40:00 Test Item Value Reference Range Comments PROTIME (BEAKER) (test code = 759) 20.2 seconds 11.9-14.2 INR (BEAKER) (test code = 370) 1.8 <=5.9 PARTIAL THROMBOPLASTIN TIME (BEAKER) (test code 38.3 seconds 22.5-36.0 = 760) Effective 07/24/2018: PT Reference Range ChangeNew: 11.9-14.2 Previous: 11.7- 14.7RECOMMENDED COUMADIN/WARFARIN INR THERAPY RANGESSTANDARD DOSE: 2.0-3.0 Includes: PROPHYLAXIS for venous thrombosis, systemic embolization; TREATMENT for venous thrombosis and/or pulmonary embolus.HIGH RISK: Target INR is2.5-3.5 for patients wiht mechanical heart valves.BODY FLUID CELL COUNT WITH [id number] 17:31:00 Test Item Value Reference Range Comments APPEARANCE FLUID (BEAKER) (test code = 510) Bloody Laurita r COLOR FLUID (BEAKER) (test code = 511) Red Colorless , Straw RBC FLUID (BEAKER) (test code = 513) 55848 /cu mm <=1 ADJUSTED WBC FLUID (BEAKER) (test code = 1691) 8467 /cu mm < =5 LINING CELLS (BEAKER) (test code = 1590) 85 /cu mm <=1 NEUTROPHILS FLUID (BEAKER) (test code = 1656) 94 % LYMPHS FLUID (BEAKER) (test code = 488) 4 % MONO/MACROPHAGE FLUID (BEAKER) (test code = 1 % 489) EOSINOPHILS FLUID (BEAKER) (test code = 491) 1 % BASO FLUID (BEAKER) (test code = 492) 0 % CONTAINER BODY FLUID (BEAKER) (test code = EDTA Tube 2873) BODY FLUID CELL COUNT WITH [id number] 17:22:00 Test Item Value Reference Range Comments APPEARANCE FLUID (BEAKER) (test code = 510) Bloody Laurita r COLOR FLUID (BEAKER) (test code = 511) Red Colorless , Straw RBC FLUID (BEAKER) (test code = 513) 43443 /cu mm <=1 ADJUSTED WBC FLUID (BEAKER) (test code = 1691) 75235 /cu mm < =5 LINING CELLS (BEAKER) (test code = 1590) 364 /cu mm <=1 NEUTROPHILS FLUID (BEAKER) (test code = 1656) 85 % LYMPHS FLUID (BEAKER) (test code = 488) 4 % MONO/MACROPHAGE FLUID (BEAKER) (test code = 10 % 489) EOSINOPHILS FLUID (BEAKER) (test code = 491) 1 % BASO FLUID (BEAKER) (test code = 492) 0 % CONTAINER BODY FLUID (BEAKER) (test code = EDTA Tube 2873) SPUTUM CULTURE + GRAM [id number] 13:08:00 Test Item Value Reference Range Comments CULTURE (BEAKER) (test code = 1095) See comment GRAM STAIN RESULT (BEAKER) (test code = 2+ WBCs 1123) GRAM STAIN RESULT (BEAKER) (test code = 0-5 epithelial cells [id number]) GRAM STAIN RESULT (BEAKER) (test code = No organisms seen 246618) <1+ YeastNo Normal respiratory rigo presentBASIC METABOLIC [id number] 10:04:00 Test Item Value Reference Range Comments SODIUM (BEAKER) (test 147 meq/L 136-145 code = 381) POTASSIUM (BEAKER) (test 3.5 meq/L 3.5-5.1 code = 379) CHLORIDE (BEAKER) (test 105 meq/L 98-107 code = 382) CO2 (BEAKER) (test code = 34 meq/L 22-29 355) BLOOD UREA NITROGEN 39 mg/dL 7-21 (BEAKER) (test code = 354) CREATININE (BEAKER) (test 1.42 mg/dL 0.57-1.25 code = 358) GLUCOSE RANDOM (BEAKER) 101 mg/dL 70-105 (test code = 652) CALCIUM (BEAKER) (test 8.6 mg/dL 8.4-10.2 code = 697) EGFR (BEAKER) (test code 50 mL/min/1.73 sq m EST IMATED GFR IS NOT = 1092) ACCURATE CREA TININE CLEARANCE IN PRE DICTING GLOMERULAR FILTR ATION RATE. ESTIMATED GFR IS NOT APPLICABLE F OR DIALYSIS PATIENT S. Billing Auditor ID - ELISSA MSpecimen slightly [id number] 10:02:00 Test Item Value Reference Range Comments PARTIAL THROMBOPLASTIN TIME (BEAKER) (test code 35.5 seconds 22.5-36.0 = 760) 6 hours after starting heparin infusion and as indicated per sliding scaleRAD, CHEST, 1 VIEW, NON [id number] 09:09:00Reason for exam:->intubated, bilateral chest tubesShould this [...] noted. IMPRESSION: No significant change. Signed: Nova Salazareport Verified Date/Time: 03/22/2019 09:09:11 Reading Location: [facility] [id number] Ortho Consult Reading Room POCT-GLUCOSE [id number] 06:06:00 Test Item Value Reference Range Comments POC-GLUCOSE METER (BEAKER) 105 mg/dL 70-110 : HEIDI ANNIE AT [facility] [address] (test code = 1538) [place], [address]: Billing Auditor/Technic juana ID = [id number] for RAVI BENDER VANCOMYCIN LEVEL, [id number] 02:59:00 Test Item Value Reference Range Comments VANCOMYCIN TROUGH (BEAKER) (test code = 522) 15.2 ug/mL 10. 0-20.0 Billing Auditor ID - JOSE [id number] 02:42:00 Test Item Value Reference Range Comments PHOSPHORUS (BEAKER) (test code = 604) 3.8 mg/dL 2.3-4.7 Billing Auditor ID - JOSE [id number] 02:42:00 Test Item Value Reference Range Comments MAGNESIUM (BEAKER) (test code = 627) 2.0 mg/dL 1.6-2.6 Billing Auditor ID - JOSE EBASIC METABOLIC [id number] 02:42:00 Test Item Value Reference Range Comments SODIUM (BEAKER) (test 144 meq/L 136-145 code = 381) POTASSIUM (BEAKER) (test 4.2 meq/L 3.5-5.1 code = 379) CHLORIDE (BEAKER) (test 103 meq/L 98-107 code = 382) CO2 (BEAKER) (test code = 35 meq/L 22-29 355) BLOOD UREA NITROGEN 39 mg/dL 7-21 (BEAKER) (test code = 354) CREATININE (BEAKER) (test 1.57 mg/dL 0.57-1.25 code = 358) GLUCOSE RANDOM (BEAKER) 103 mg/dL 70-105 (test code = 652) CALCIUM (BEAKER) (test 8.5 mg/dL 8.4-10.2 code = 697) EGFR (BEAKER) (test code 45 mL/min/1.73 sq m EST IMATED GFR IS NOT = 1092) ACCURATE CREA TININE CLEARANCE IN PRE DICTING GLOMERULAR FILTR ATION RATE. ESTIMATED GFR IS NOT APPLICABLE F OR DIALYSIS PATIENT S. Billing Auditor ID - JOSE ESpecimen slightly ictericCBC W/PLT COUNT & AUTO [id number] 02:27:00 Test Item Value Reference Range Comments WHITE BLOOD CELL COUNT (BEAKER) (test code = 16.4 K/ L 3.5 -10.5 775) RED BLOOD CELL COUNT (BEAKER) (test code = 761) 4.03 M/ L 4.63-6.08 HEMOGLOBIN (BEAKER) (test code = 410) 10.1 GM/DL 13.7-17.5 HEMATOCRIT (BEAKER) (test code = 411) 31.0 % 40.1-51.0 MEAN CORPUSCULAR VOLUME (BEAKER) (test code = 76.9 fL 79 .0-92.2 753) MEAN CORPUSCULAR HEMOGLOBIN (BEAKER) (test code 25.1 pg 25.7-32.2 = 751) MEAN CORPUSCULAR HEMOGLOBIN CONC (BEAKER) (test 32.6 GM/DL 32.3-36.5 code = 752) RED CELL DISTRIBUTION WIDTH (BEAKER) (test code 18.8 % 11.6-14.4 = 412) PLATELET COUNT (BEAKER) (test code = 756) 255 K/CU MM 150-45 0 MEAN PLATELET VOLUME (BEAKER) (test code = 754) 11.2 fL 9.4-12.4 NUCLEATED RED BLOOD CELLS (BEAKER) (test code = 0 /100 WBC 0-0 413) NEUTROPHILS RELATIVE PERCENT (BEAKER) (test code 79 % = 429) LYMPHOCYTES RELATIVE PERCENT (BEAKER) (test code 11 % = 430) MONOCYTES RELATIVE PERCENT (BEAKER) (test code = 9 % 431) EOSINOPHILS RELATIVE PERCENT (BEAKER) (test code 1 % = 432) BASOPHILS RELATIVE PERCENT (BEAKER) (test code = 0 % 437) NEUTROPHILS ABSOLUTE COUNT (BEAKER) (test code = 12.95 K/ L 1.78-5.38 670) LYMPHOCYTES ABSOLUTE COUNT (BEAKER) (test code = 1.77 K/ L 1.32-3.57 414) MONOCYTES ABSOLUTE COUNT (BEAKER) (test code = 1.41 K/ L 0 .30-0.82 415) EOSINOPHILS ABSOLUTE COUNT (BEAKER) (test code = 0.13 K/ L 0.04-0.54 416) BASOPHILS ABSOLUTE COUNT (BEAKER) (test code = 0.02 K/ L 0 .01-0.08 417) IMMATURE GRANULOCYTES-RELATIVE PERCENT (BEAKER) 1 % 0-1 (test code = 2801) POCT-GLUCOSE [id number] 00:42:00 Test Item Value Reference Range Comments POC-GLUCOSE METER (BEAKER) 95 mg/dL 70-110 : HEIDI JACOBS AT [facility] [address] (test code = 1538) [place], [address]: Billing Auditor/Technic juana ID = [id number] for RAVI BENDER BASIC METABOLIC [id number] 22:23:00 Test Item Value Reference Range Comments SODIUM (BEAKER) (test 146 meq/L 136-145 code = 381) POTASSIUM (BEAKER) (test 3.3 meq/L 3.5-5.1 code = 379) CHLORIDE (BEAKER) (test 104 meq/L 98-107 code = 382) CO2 (BEAKER) (test code = 34 meq/L 22-29 355) BLOOD UREA NITROGEN 37 mg/dL 7-21 (BEAKER) (test code = 354) CREATININE (BEAKER) (test 1.47 mg/dL 0.57-1.25 code = 358) GLUCOSE RANDOM (BEAKER) 98 mg/dL 70-105 (test code = 652) CALCIUM (BEAKER) (test 7.8 mg/dL 8.4-10.2 code = 697) EGFR (BEAKER) (test code 48 mL/min/1.73 sq m EST IMATED GFR IS NOT = 1092) ACCURATE CREA TININE CLEARANCE IN PRE DICTING GLOMERULAR FILTR ATION RATE. ESTIMATED GFR IS NOT APPLICABLE F OR DIALYSIS PATIENT S. Billing Auditor ID - BSSpecimen slightly ictericBODY FLUID CELL COUNT WITH DIFFERENTIAL 2019-03-21 20:29:00 Test Item Value Reference Range Comments APPEARANCE FLUID (BEAKER) (test code = 510) Hazy Laurita r COLOR FLUID (BEAKER) (test code = 511) Kierra Colorless , Straw RBC FLUID (BEAKER) (test code = 513) 99815 /cu mm <=1 ADJUSTED WBC FLUID (BEAKER) (test code = 1691) 2461 /cu mm < =5 LINING CELLS (BEAKER) (test code = 1590) 0 /cu mm <=1 NEUTROPHILS FLUID (BEAKER) (test code = 1656) 66 % LYMPHS FLUID (BEAKER) (test code = 488) 17 % MONO/MACROPHAGE FLUID (BEAKER) (test code = 17 % 489) EOSINOPHILS FLUID (BEAKER) (test code = 491) 0 % BASO FLUID (BEAKER) (test code = 492) 0 % CONTAINER BODY FLUID (BEAKER) (test code = EDTA Tube 2873) U/S, DRAINAGE, CHEST, WITH TUBE [id number] 19:48:00Please place a 3-way stopcock on the pigtail chest tube so we can do dornase bid Reason for exam:->large right sided loculated pleural effusion Anesthesia:->NoneFINAL REPORT Ultrasound guided insertion of bilateral pigtail chest tube catheters. History: Bilateral loculated pleural effusions. Modality: Ultrasound Sedation: None Anesthesia: Two percent Lidocaine without epinephrine. Approach: Bilateral mid axillary line Estimated blood loss: < 5 cc. Specimen: Left bedside. molded goods operator: Nato Dang MD. Track Sweeper: None. Technique: Informed written consent was obtained. [...] space. Under direct ultrasound guidance an 8 Malay skater pigtail drain was advanced into the [...] the patient's left chest and an 8 Malay skater pigtail drain was placed in a similar fashion and connected to the atrium pleura. The patient tolerated the procedure well without evidence of immediate competition. Impression: Te chnically successful and uncomplicated placement of bilateral pigtail chest tubes under ultrasound guidance. Signed: Nato Dang MDReport Verified Date/Time: 03/21/2019 19:48:47 Reading Location: [address] Body Reading Room RESPIRATORY PANEL [id number] 12:39:00 Test Item Value Reference Range Comments HUMAN METAPNEUMOVIRUS (BEAKER) (test Not detected Not detecte d, Equivocal code = 2683) RHINOVIRUS (BEAKER) (test code = 2684) Not detected Not detec annie, Equivocal INFLUENZA A (BEAKER) (test code = 2685) Not detected Not dete cted, Equivocal INFLUENZA A (NO SUBTYPE) (test code = 3606) INFLUENZA A SUBTYPE H1 (BEAKER) (test code = 2686) INFLUENZA A SUBTYPE H3 (BEAKER) (test code = 2687) INFLUENZA A SUBTYPE H1-2009 (BEAKER) (test code = 3198) INFLUENZA B (BEAKER) (test code = 2688) Not detected Not dete cted, Equivocal RESPIRATORY SYNCYTIAL VIRUS (BEAKER) Not detected Not detecte d, Equivocal (test code = 3199) PARAINFLUENZA VIRUS 1 (BEAKER) (test Not detected Not detecte d, Equivocal code = 2691) PARAINFLUENZA VIRUS 2 (BEAKER) (test Not detected Not detecte d, Equivocal code = 2692) PARAINFLUENZA VIRUS 3 (BEAKER) (test Not detected Not detecte d, Equivocal code = 2693) PARAINFLUENZA VIRUS 4 (BEAKER) (test Not detected Not detecte d, Equivocal code = 3200) ADENOVIRUS (BEAKER) (test code = 2694) Not detected Not detec annie, Equivocal CORONAVIRUS 229E (BEAKER) (test code = Not detected Not detec annie, Equivocal 3201) CORONAVIRUS HKU1 (BEAKER) (test code = Not detected Not detec annie, Equivocal 3202) CORONAVIRUS NL63 (BEAKER) (test code = Not detected Not detec annie, Equivocal 3203) CORONAVIRUS OC43 (BEAKER) (test code = Not detected Not detec annie, Equivocal 3204) BORDETELLA PERTUSSIS (BEAKER) (test Not detected Not detected , Equivocal code = 3205) CHLAMYDOPHILA PNEUMONIAE (BEAKER) (test Not detected Not dete cted, Equivocal code = 3206) MYCOPLASMA PNEUMONIAE (BEAKER) (test Not detected Not detecte d, Equivocal code = 3207) Other viruses and bacteria not targeted by this PCR panel cannot be excluded; therefore clinical correlation and follow up of serology, culture results, and other molecular studies is required. The results are not intended to be used as the sole means for clinical diagnosis or patient management decisions. This sample was tested at the [facility] using the [employer] Service[employer] Respiratory Panel. It is FDA cleared and has been verified and approved by the [facility] for clinical use on nasopharyngeal swab specimens.The performance of the FilmArrayRP has not been established in individuals who received influenza vaccine. Recent administration ofa nasal influenza vaccine may cause false positive results for Influenza A and/orInfluenza B.VITAMIN B12 AND [id number] 10:20:00 Test Item Value Reference Range Comments VITAMIN B12 (BEAKER) (test code = 774) > pg/mL 213-816 FOLATE (BEAKER) (test code = 362) 17.3 ng/mL >=7.0 Billing Auditor ID - ELISSA [id number] 10:16:00 Test Item Value Reference Range Comments FERRITIN (BEAKER) (test code = 361) 1076 ng/mL 5-275 Billing Auditor ID - ELISSA [id number] 09:41:00 Test Item Value Reference Range Comments MAGNESIUM (BEAKER) (test code = 627) 2.0 mg/dL 1.6-2.6 Billing Auditor ID - ELISSA MBASIC METABOLIC [id number] 09:41:00 Test Item Value Reference Range Comments SODIUM (BEAKER) (test 144 meq/L 136-145 code = 381) POTASSIUM (BEAKER) (test 3.9 meq/L 3.5-5.1 code = 379) CHLORIDE (BEAKER) (test 102 meq/L 98-107 code = 382) CO2 (BEAKER) (test code = 39 meq/L 22-29 355) BLOOD UREA NITROGEN 34 mg/dL 7-21 (BEAKER) (test code = 354) CREATININE (BEAKER) (test 1.36 mg/dL 0.57-1.25 code = 358) GLUCOSE RANDOM (BEAKER) 94 mg/dL 70-105 (test code = 652) CALCIUM (BEAKER) (test 8.0 mg/dL 8.4-10.2 code = 697) EGFR (BEAKER) (test code 53 mL/min/1.73 sq m EST IMATED GFR IS NOT = 1092) ACCURATE CREA TININE CLEARANCE IN PRE DICTING GLOMERULAR FILTR ATION RATE. ESTIMATED GFR IS NOT APPLICABLE F OR DIALYSIS PATIENT S. Billing Auditor ID - ELISSA MSpecimen slightly ictericLACTATE DEHYDROGENASE (LDH) 2019-03-21 09:41:00 Test Item Value Reference Range Comments LACTATE DEHYDROGENASE (BEAKER) (test code = 635) 300 U/L 125-220 Billing Auditor ID - ELISSA DANIELLE, TIBC, % SAT. (WITHOUT FERRITIN)2019-03-21 09:39:00 Test Item Value Reference Range Comments IRON (BEAKER) (test code = 547) 39.0 ug/dL 40.0-160.0 TOTAL IRON BINDING CAPACITY (BEAKER) (test code = 113 ug/dL 250-450 769) IRON % SATURATION (2) (BEAKER) (test code = 2590) 35 % 20-55 Billing Auditor ID - ELISSA MRAPID INFLUENZA A&B [id number] 09:34:00 Test Item Value Reference Range Comments RAPID INFLUENZA A AG (BEAKER) (test code = Negative Negat azra, Inconclusive 1622) RAPID INFLUENZA B AG (BEAKER) (test code = Negative Negat azra, Inconclusive 1623) RETICULOCYTE [id number] 09:20:00 Test Item Value Reference Range Comments RETICULOCYTE COUNT PCT (BEAKER) (test code = 575) 1.9 % 0.5-1.8 Billing Auditor ID - [id number] W/PLT COUNT & AUTO [id number] 08:50:00 Test Item Value Reference Range Comments WHITE BLOOD CELL COUNT (BEAKER) (test code = 17.8 K/ L 3.5 -10.5 775) RED BLOOD CELL COUNT (BEAKER) (test code = 761) 4.58 M/ L 4.63-6.08 HEMOGLOBIN (BEAKER) (test code = 410) 11.3 GM/DL 13.7-17.5 HEMATOCRIT (BEAKER) (test code = 411) 35.2 % 40.1-51.0 MEAN CORPUSCULAR VOLUME (BEAKER) (test code = 76.9 fL 79 .0-92.2 753) MEAN CORPUSCULAR HEMOGLOBIN (BEAKER) (test code 24.7 pg 25.7-32.2 = 751) MEAN CORPUSCULAR HEMOGLOBIN CONC (BEAKER) (test 32.1 GM/DL 32.3-36.5 code = 752) RED CELL DISTRIBUTION WIDTH (BEAKER) (test code 19.0 % 11.6-14.4 = 412) PLATELET COUNT (BEAKER) (test code = 756) 339 K/CU MM 150-45 0 MEAN PLATELET VOLUME (BEAKER) (test code = 754) 11.1 fL 9.4-12.4 NUCLEATED RED BLOOD CELLS (BEAKER) (test code = 0 /100 WBC 0-0 413) (CELLAVISION MANUAL DIFF)2019-03-21 08:50:00 Test Item Value Reference Range Comments NEUTROPHILS - REL (CELLAVISION)(BEAKER) (test 88 % code = 2816) LYMPHOCYTES - REL (CELLAVISION)(BEAKER) (test 1 % code = 2817) MONOCYTES - REL (CELLAVISION)(BEAKER) (test code 5 % = 2818) EOSINOPHILS - REL (CELLAVISION)(BEAKER) (test 4 % code = 2819) BANDS - REL (CELLAVISION)(BEAKER) (test code = 2 % 0 -10 2826) NEUTROPHILS - ABS (CELLAVISION)(BEAKER) (test 15.66 K/ul 1. 78-5.38 code = 2830) LYMPHOCYTES - ABS (CELLAVISION)(BEAKER) (test 0.18 K/ul 1. 32-3.57 code = 2831) MONOCYTES - ABS (CELLAVISION)(BEAKER) (test code 0.89 K/uL 0.30-0.82 = 2832) EOSINOPHILS - ABS (CELLAVISION)(BEAKER) (test 0.71 K/uL 0. 04-0.54 code = 2834) BANDS - ABS (CELLAVISION)(BEAKER) (test code = 0.36 K/uL 0 .00-0.80 2840) TOTAL COUNTED (BEAKER) (test code = 1351) 100 WBC MORPHOLOGY (BEAKER) (test code = 487) Normal PLT MORPHOLOGY (BEAKER) (test code = 486) Normal POLYCHROMATOPHILLIC RBCS(BEAKER) (test code = 1+ few 478) ANISOCYTOSIS (BEAKER) (test code = 961) 1+ few POIKILOCYTES (BEAKER) (test code = 966) 2+ moderate BAN CELLS (BEAKER) (test code = 474) 2+ moderate ARTIFACT (CELLAVISION)(BEAKER) (test code = Present 3432) PLATELET CONCENTRATION (CELLAVISION)(BEAKER) Adequate (test code = 3438) Billing Auditor ID - Mariela OverholtUser comments: Slide comments:POCT-GLUCOSE METER 2019-03-21 05:45:00 Test Item Value Reference Range Comments POC-GLUCOSE METER (BEAKER) 89 mg/dL 70-110 : HEIDI ANNIE AT [facility] [address], [place] (test code = 1538) [facility], [address]30: Billing Auditor/Technic juana ID = [id number] for RAVI BENDER U/S, ABDOMINAL, [id number] 05:36:00Abdomen limited area? Add comment if clarification is needed.->Right upper quadrantReason for exam:- >hyperbilirubinemiaShould this be performed at the bedside?->YesFINAL REPORT TECHNIQUE: Grayscale ultrasound of the right abdomen. INDICATION: hyperbilirubinemia. COMPARISON: None. FINDINGS: MIDLINE VASCULATURE: The visualized inferior vena cava is patent. [...] ultrasound of the right upper quadrant. Signed: Rebel, Tomasa MD Report Verified Date/Time: 03/21/2019 05:36:04 [id number] 03:16:00 Test Item Value Reference Range Comments MAGNESIUM (BEAKER) (test code = 2.1 mg/dL 1.6-2.6 Specimen slightly hemolyzed 627) Billing Auditor ID - ELISSA [id number] 03:16:00 Test Item Value Reference Range Comments PHOSPHORUS (BEAKER) (test code 4.4 mg/dL 2.3-4.7 S pecimen slightly hemolyzed = 604) Billing Auditor ID - ELISSA [id number] 02:32:00 Test Item Value Reference Range Comments MAGNESIUM (BEAKER) (test code = 2.1 mg/dL 1.6-2.6 Specimen slightly hemolyzed 627) Billing Auditor ID - ALEM BBASIC METABOLIC [id number] 01:30:00 Test Item Value Reference Range Comments SODIUM (BEAKER) (test 141 meq/L 136-145 code = 381) POTASSIUM (BEAKER) (test 3.7 meq/L 3.5-5.1 code = 379) CHLORIDE (BEAKER) (test 102 meq/L 98-107 code = 382) CO2 (BEAKER) (test code = 33 meq/L 22-29 355) BLOOD UREA NITROGEN 32 mg/dL 7-21 (BEAKER) (test code = 354) CREATININE (BEAKER) (test 1.28 mg/dL 0.57-1.25 code = 358) GLUCOSE RANDOM (BEAKER) 109 mg/dL 70-105 (test code = 652) CALCIUM (BEAKER) (test 7.6 mg/dL 8.4-10.2 code = 697) EGFR (BEAKER) (test code 57 mL/min/1.73 sq m EST IMATED GFR IS NOT = 1092) ACCURATE CREA TININE CLEARANCE IN PRE DICTING GLOMERULAR FILTR ATION RATE. ESTIMATED GFR IS NOT APPLICABLE F OR DIALYSIS PATIENT S. Billing Auditor ID - ALEM BSpecimen slightly ictericPOCT-GLUCOSE [id number] 23:58:00 Test Item Value Reference Range Comments POC-GLUCOSE METER (BEAKER) 114 mg/dL 70-110 : [facility] AT [facility] [address] [facility] (test code = 1538) [facility], [address]: Billing Auditor/Technic juana ID = [id number] for RAVI BENDER [id number] 20:21:00 Test Item Value Reference Range Comments MAGNESIUM (BEAKER) (test code = 627) 2.1 mg/dL 1.6-2.6 Billing Auditor ID - ALEM BPOCT-GLUCOSE [id number] 18:23:00 Test Item Value Reference Range Comments POC-GLUCOSE METER (BEAKER) 98 mg/dL 70-110 : [facility] AT [facility] [address] [facility] (test code = 1538) [facility], [address]: Billing Auditor/Technic juana ID = [id number] for YAMIL GILMORE BASIC METABOLIC [id number] 17:43:00 Test Item Value Reference Range Comments SODIUM (BEAKER) (test 142 meq/L 136-145 code = 381) POTASSIUM (BEAKER) (test 3.3 meq/L 3.5-5.1 code = 379) CHLORIDE (BEAKER) (test 100 meq/L 98-107 code = 382) CO2 (BEAKER) (test code = 37 meq/L 22-29 355) BLOOD UREA NITROGEN 29 mg/dL 7-21 (BEAKER) (test code = 354) CREATININE (BEAKER) (test 1.22 mg/dL 0.57-1.25 code = 358) GLUCOSE RANDOM (BEAKER) 104 mg/dL 70-105 (test code = 652) CALCIUM (BEAKER) (test 8.0 mg/dL 8.4-10.2 code = 697) EGFR (BEAKER) (test code 60 mL/min/1.73 sq m EST IMATED GFR IS NOT = 1092) ACCURATE CREA TININE CLEARANCE IN PRE DICTING GLOMERULAR FILTR ATION RATE. ESTIMATED GFR IS NOT APPLICABLE F OR DIALYSIS PATIENT S. Billing Auditor ID - AAHAMIDSpecimen slightly ictericBLOOD GAS, [id number] 16:45:00 Test Item Value Reference Range Comments PH ARTERIAL (BEAKER) (test code = 383) 7.50 7.35-7.45 PCO2 ARTERIAL (BEAKER) (test code = 384) 49 mmHg 35-45 PO2 ARTERIAL (BEAKER) (test code = 385) 87 mmHg 80-90 O2 SATURATION ARTERIAL (BEAKER) (test code = 97.0 % 96. 0-97.0 386) HCO3 ARTERIAL (BEAKER) (test code = 388) 38 mmol/L 21-29 BASE EXCESS ARTERIAL (BEAKER) (test code = 387) 12.9 mmol/L -2.0-3.0 PATIENT TEMPERATURE (BEAKER) (test code = 1818) 37.5 C FIO2 (BEAKER) (test code = 1819) 30.0 % CT, CHEST, WITHOUT [id number] 14:58:00FINAL REPORT CT of the Chest dated [...] seen. Visualized upper abdomen demonstrates no focal lesion. Impression: 1. Ascending thoracic with ascending thoracic aortic aneurysm. 2. Bilateral pleural effusion with lingula, right mid, and bibasilar compressive atelectasis. Signed: Tomasa [place] Verified Date/Time: 03/20/2019 14:58:27 Reading Location: [facility] C013Y CT Body Reading Room VANCOMYCIN LEVEL, TROUGH 2019-03-20 13:36:00 Test Item Value Reference Range Comments VANCOMYCIN TROUGH (BEAKER) (test code = 522) 24.0 ug/mL 10. 0-20.0 Billing Auditor ID - BSPOCT-GLUCOSE [id number] 12:46:00 Test Item Value Reference Range Comments POC-GLUCOSE METER (BEAKER) 87 mg/dL 70-110 : HEIDI ANNIE AT [address] (test code = 1538) [facility], [address]: Billing Auditor/Technic ujana ID = [id number] for YAMIL GILMORE HEMOGLOBIN [id number] 09:33:00 Test Item Value Reference Range Comments HEMOGLOBIN A1C (BEAKER) (test code = 368) 6.2 % 4.3-6. 1 OSMOLALITY, [id number] 07:32:00 Test Item Value Reference Range Comments OSMOLALITY URINE (BEAKER) (test code = 614) 540 mOsm/kg 40-1 ,400 TROPONIN [id number] 06:34:00 Test Item Value Reference Range Comments TROPONIN I (BEAKER) (test code = 397) 0.03 ng/mL 0.00-0.03 Troponin I (TnI) levels [...] failure, acidosis, acute neurological disease, and persistent tachyarrhythmia.Billing Auditor ID - SANDRA WLACTIC ACID, VENOUS 2019-03-20 06:14:00 Test Item Value Reference Range Comments LACTATE BLOOD VENOUS (2) (BEAKER) (test code = 2.0 mmol/L 0 .5-2.2 2872) Billing Auditor ID - SANDRA WSpecimen slightly ictericPOCT-GLUCOSE [id number] 05:56:00 Test Item Value Reference Range Comments POC-GLUCOSE METER (BEAKER) 86 mg/dL 70-110 : HEIDI ANNIE AT [address] (test code = 1538) [facility], [address]: Billing Auditor/Technic juana ID = [id number] for SONAM VILCHIS CBC W/PLT COUNT & AUTO [id number] 05:35:00 Test Item Value Reference Range Comments WHITE BLOOD CELL COUNT (BEAKER) (test code = 14.8 K/ L 3.5 -10.5 775) RED BLOOD CELL COUNT (BEAKER) (test code = 761) 5.03 M/ L 4.63-6.08 HEMOGLOBIN (BEAKER) (test code = 410) 12.3 GM/DL 13.7-17.5 HEMATOCRIT (BEAKER) (test code = 411) 37.7 % 40.1-51.0 MEAN CORPUSCULAR VOLUME (BEAKER) (test code = 75.0 fL 79 .0-92.2 753) MEAN CORPUSCULAR HEMOGLOBIN (BEAKER) (test code 24.5 pg 25.7-32.2 = 751) MEAN CORPUSCULAR HEMOGLOBIN CONC (BEAKER) (test 32.6 GM/DL 32.3-36.5 code = 752) RED CELL DISTRIBUTION WIDTH (BEAKER) (test code 18.7 % 11.6-14.4 = 412) PLATELET COUNT (BEAKER) (test code = 756) 357 K/CU MM 150-45 0 MEAN PLATELET VOLUME (BEAKER) (test code = 754) 11.4 fL 9.4-12.4 NUCLEATED RED BLOOD CELLS (BEAKER) (test code = 0 /100 WBC 0-0 413) NEUTROPHILS RELATIVE PERCENT (BEAKER) (test code 78 % = 429) LYMPHOCYTES RELATIVE PERCENT (BEAKER) (test code 12 % = 430) MONOCYTES RELATIVE PERCENT (BEAKER) (test code = 8 % 431) EOSINOPHILS RELATIVE PERCENT (BEAKER) (test code 1 % = 432) BASOPHILS RELATIVE PERCENT (BEAKER) (test code = 0 % 437) NEUTROPHILS ABSOLUTE COUNT (BEAKER) (test code = 11.57 K/ L 1.78-5.38 670) LYMPHOCYTES ABSOLUTE COUNT (BEAKER) (test code = 1.70 K/ L 1.32-3.57 414) MONOCYTES ABSOLUTE COUNT (BEAKER) (test code = 1.25 K/ L 0 .30-0.82 415) EOSINOPHILS ABSOLUTE COUNT (BEAKER) (test code = 0.14 K/ L 0.04-0.54 416) BASOPHILS ABSOLUTE COUNT (BEAKER) (test code = 0.02 K/ L 0 .01-0.08 417) IMMATURE GRANULOCYTES-RELATIVE PERCENT (BEAKER) 1 % 0-1 (test code = 2801) URINALYSIS W/ REFLEX URINE [id number] 04:38:00 Test Item Value Reference Range Comments COLOR (BEAKER) (test code = 470) Dark Yellow CLARITY (BEAKER) (test code = 469) Clear SPECIFIC GRAVITY UA (BEAKER) (test code = 468) 1.024 1 .001-1.035 PH UA (BEAKER) (test code = 467) 8.0 5.0-8.0 PROTEIN UA (BEAKER) (test code = 464) 50 mg/dL Negative GLUCOSE UA (BEAKER) (test code = 365) Negative Negative KETONES UA (BEAKER) (test code = 371) Negative Negative BILIRUBIN UA (BEAKER) (test code = 462) Positive Negative BLOOD UA (BEAKER) (test code = 461) Negative Negative NITRITE UA (BEAKER) (test code = 465) Negative Negative LEUKOCYTE ESTERASE UA (BEAKER) (test code = 466) Moderate Negative UROBILINOGEN UA (BEAKER) (test code = 463) > mg/dL 0.2-1 .0 RBC UA (BEAKER) (test code = 519) 10 /HPF WBC UA (BEAKER) (test code = 520) 18 /HPF SQUAMOUS EPITHELIAL (BEAKER) (test code = 516) < /HPF SOURCE(BEAKER) (test code = 2795) Billing Auditor ID - [auto]Billing Auditor ID - techRAD, CHEST, 1 VIEW, NON [id number] 04:29:00Reason for exam:->pneumonia, COPD exac, CHF exacShould this [...] changes. There is no pneumothorax. Signed: Nakia Goldstein Verified Date/Time: 03/20/2019 04:29:54 BLOOD GAS, [id number] 04:12:00 Test Item Value Reference Range Comments PH ARTERIAL (BEAKER) (test code = 383) 7.53 7.35-7.45 PCO2 ARTERIAL (BEAKER) (test code = 384) 44 mmHg 35-45 PO2 ARTERIAL (BEAKER) (test code = 385) 81 mmHg 80-90 O2 SATURATION ARTERIAL (BEAKER) (test code = 96.9 % 96. 0-97.0 386) HCO3 ARTERIAL (BEAKER) (test code = 388) 36 mmol/L 21-29 BASE EXCESS ARTERIAL (BEAKER) (test code = 387) 11.3 mmol/L -2.0-3.0 PATIENT TEMPERATURE (BEAKER) (test code = 1818) 37.0 C FIO2 (BEAKER) (test code = 1819) 30.0 % TSH/FREE T4 IF [id number] 04:07:00 Test Item Value Reference Range Comments THYROID STIMULATING HORMONE (BEAKER) (test code 3.06 uIU/mL 0.35-4.94 = 772) Billing Auditor ID - BSTROPONIN [id number] 03:57:00 Test Item Value Reference Range Comments TROPONIN I (BEAKER) (test code = 397) 0.05 ng/mL 0.00-0.03 Troponin I (TnI) levels [...] failure, acidosis, acute neurological disease, and persistent tachyarrhythmia.Billing Auditor ID - SANDRA WB-TYPE NATRIURETIC FACTOR (BNP)2019-03-20 03:53:00 Test Item Value Reference Range Comments B-TYPE NATRIURETIC PEPTIDE (BEAKER) (test code = 907 pg/mL 0-100 700) Billing Auditor ID - BSBASIC METABOLIC [id number] 03:52:00 Test Item Value Reference Range Comments SODIUM (BEAKER) (test 142 meq/L 136-145 code = 381) POTASSIUM (BEAKER) (test 3.6 meq/L 3.5-5.1 Specime n slightly code = 379) hemolyzed CHLORIDE (BEAKER) (test 100 meq/L 98-107 code = 382) CO2 (BEAKER) (test code = 35 meq/L 22-29 355) BLOOD UREA NITROGEN 24 mg/dL 7-21 (BEAKER) (test code = 354) CREATININE (BEAKER) (test 0.90 mg/dL 0.57-1.25 Specim en slightly code = 358) hemolyzed GLUCOSE RANDOM (BEAKER) 86 mg/dL 70-105 (test code = 652) CALCIUM (BEAKER) (test 7.7 mg/dL 8.4-10.2 code = 697) EGFR (BEAKER) (test code 85 mL/min/1.73 sq m EST IMATED GFR IS NOT = 1092) ACCURATE CREA TININE CLEARANCE IN PRE DICTING GLOMERULAR FILTR ATION RATE. ESTIMATED GFR IS NOT APPLICABLE F OR DIALYSIS PATIENT S. Billing Auditor ID - SANDRA Christiansen slightly ictericHEPATIC FUNCTION [id number] 03:52:00 Test Item Value Reference Range Comments TOTAL PROTEIN (BEAKER) (test 5.9 gm/dL 6.0-8.3 Spe cimen slightly hemolyzed code = 770) ALBUMIN (BEAKER) (test code = 1.7 g/dL 3.5-5.0 Sp ecimen slightly hemolyzed 1145) BILIRUBIN TOTAL (BEAKER) (test 3.2 mg/dL 0.2-1.2 S pecimen slightly hemolyzed code = 377) BILIRUBIN DIRECT (BEAKER) (test 2.1 mg/dL 0.1-0.5 Specimen slightly hemolyzed code = 706) ALKALINE PHOSPHATASE (BEAKER) 100 U/L 40-150 (test code = 346) AST (SGOT) (BEAKER) (test code 31 U/L 5-34 S pecimen slightly hemolyzed = 353) ALT (SGPT) (BEAKER) (test code 12 U/L 6-55 S pecimen slightly hemolyzed = 347) Billing Auditor ID - SANDRA Kuldip slightly ictericLIPID [id number] 03:52:00 Test Item Value Reference Range Comments TRIGLYCERIDES (BEAKER) (test 60 mg/dL Spe cimen slightly hemolyzed code = 540) CHOLESTEROL (BEAKER) (test code 55 mg/dL Specimen slightly hemolyzed = 631) HDL CHOLESTEROL (BEAKER) (test 15 mg/dL code = 976) LDL CHOLESTEROL CALCULATED 28 mg/dL (BEAKER) (test code = 633) Triglyceride Reference Range: Low Risk <150 Borderline 150-199 High Risk 200-499 Very High Risk >=500Cholesterol Reference Range: Low Risk <200 Borderline 200-239 High Risk >240HDL Cholesterol Reference Range: Low Risk >=60 High Risk <40LDL Cholesterol Reference Range: Optimal <100 Near Optimal 100-129 Borderline 130-159 High 160-189 Very High >=190 Billing Auditor ID - SANDRAWSpecimecely slightly ictericVANCOMYCIN LEVEL, RANDOM 2019-03-20 03:51:00 Test Item Value Reference Range Comments VANCOMYCIN RANDOM (BEAKER) (test code = 523) 52.3 ug/mL Reference Range: No NormalsOperator ID Sultana FLORES [id number] 03:49:00 Test Item Value Reference Range Comments MAGNESIUM (BEAKER) (test code = 2.1 mg/dL 1.6-2.6 Specimen slightly hemolyzed 627) Billing Auditor ID - SANDRA [id number] 03:49:00 Test Item Value Reference Range Comments PHOSPHORUS (BEAKER) (test code 3.0 mg/dL 2.3-4.7 S pecimen slightly hemolyzed = 604) Billing Auditor ID - SANDRA [id number] 03:36:00 Test Item Value Reference Range Comments FIBRINOGEN LEVEL (BEAKER) (test code = 658) 492 mg/dl 225- 434 PT/[id number] 03:36:00 Test Item Value Reference Range Comments PROTIME (BEAKER) (test code = 759) 17.9 seconds 11.9-14.2 INR (BEAKER) (test code = 370) 1.5 <=5.9 PARTIAL THROMBOPLASTIN TIME (BEAKER) (test code 37.6 seconds 22.5-36.0 = 760) Effective 07/24/2018: PT Reference Range ChangeNew: 11.9-14.2 Previous: 11.7- 14.7RECOMMENDED COUMADIN/WARFARIN INR THERAPY RANGESSTANDARD DOSE: 2.0-3.0 Includes: PROPHYLAXIS for venous thrombosis, systemic embolization; TREATMENT for venous thrombosis and/or pulmonary embolus.HIGH RISK: Target INR is2.5-3.5 for patients wiht mechanical heart valves.PROTHROMBIN [id number] 03:35:00 Test Item Value Reference Range Comments PROTIME (BEAKER) (test code = 759) 17.9 seconds 11.9-14.2 INR (BEAKER) (test code = 370) 1.5 <=5.9 Effective 07/24/2018: PT Reference Range ChangeNew: 11.9-14.2 Previous: 11.7- 14.7RECOMMENDED COUMADIN/WARFARIN INR THERAPY RANGESSTANDARD DOSE: 2.0-3.0 Includes: PROPHYLAXIS for venous thrombosis, systemic embolization; TREATMENT for venous thrombosis and/or pulmonary embolus.HIGH RISK: Target INR is2.5-3.5 for patients wiht mechanical heart valves.SODIUM, RANDOM [id number] 03:33:00 Test Item Value Reference Range Comments SODIUM URINE (BEAKER) (test code = 243) < meq/L Reference Range: No NormalsOperator ID - BSCHLORIDE, RANDOM [id number] 03:33:00 Test Item Value Reference Range Comments CHLORIDE URINE (BEAKER) (test code = 682) < meq/L Reference Range: No NormalsOperator ID - BSCREATININE, RANDOM [id number] 03:32:00 Test Item Value Reference Range Comments CREATININE URINE (BEAKER) (test code = 375) 120.7 mg/dL Reference Range: No NormalsOperator ID - BSPROTEIN, RANDOM [id number] 03:32:00 Test Item Value Reference Range Comments PROTEIN, URINE (BEAKER) (test code = 1569) 72 mg/dL 0-14 Billing Auditor ID - BSUREA NITROGEN, RANDOM [id number] 03:32:00 Test Item Value Reference Range Comments UREA NITROGEN URINE (BEAKER) (test code = 538) 915 mg/dL Reference Range: No NormalsOperator ID - BSSTREP PNEUMONIAE [id number] 03:31:00 Test Item Value Reference Range Comments STREP PNEUMONIAE ANTIGEN Presumptive negative for Presumptive ne gative for (BEAKER) (test code = pneumococcal pneumonia - pneumococcal pneu monia - 1615) see comment see commen Presumptive negative for pneumococcal pneumonia, suggesting no current or recent pneumococcal infection. Infection due to S. pneumoniae cannot be ruled out since the antigen present in the sample may be below the detection limit of the test.LEGIONELLA ANTIGEN, [id number] 03:30:00 Test Item Value Reference Range Comments L. PNEUMOPHILA SEROGP 1 Negative - see Negative for L. UR AG (BEAKER) (test comment pneumophila serogroup 1 code = 1156) antigen, suggest ing no recent or curren t infection with t his serogroup. Legio nellosis cannot be ruled out since other serogroups and species may caus e disease. POCT-GLUCOSE [id number] 00:50:00 Test Item Value Reference Range Comments POC-GLUCOSE METER (BEAKER) 87 mg/dL 70-110 : [facility]IE AT [facility] [address] [facility] [place] (test code = 1538) [facility], [address]: Billing Auditor/Technic juana ID = [id number] for SONAM VILCHIS [id number] 09:16:00 Test Item Value Reference Range Comments MAGNESIUM (BEAKER) (test code = 627) 1.7 mg/dL 1.6-2.6 [id number] 09:16:00 Test Item Value Reference Range Comments PHOSPHORUS (BEAKER) (test code = 604) 4.2 mg/dL 2.3-4.7 BASIC METABOLIC [id number] 05:44:00 Test Item Value Reference Range Comments SODIUM (BEAKER) (test 137 meq/L 136-145 code = 381) POTASSIUM (BEAKER) (test 3.6 meq/L 3.5-5.1 code = 379) CHLORIDE (BEAKER) (test 101 meq/L 98-107 code = 382) CO2 (BEAKER) (test code = 31 meq/L 22-29 355) BLOOD UREA NITROGEN 10 mg/dL 7-21 (BEAKER) (test code = 354) CREATININE (BEAKER) (test 0.75 mg/dL 0.57-1.25 code = 358) GLUCOSE RANDOM (BEAKER) 79 mg/dL 70-105 (test code = 652) CALCIUM (BEAKER) (test 9.6 mg/dL 8.4-10.2 code = 697) EGFR (BEAKER) (test code 105 mL/min/1.73 sq m ES TIMATED GFR IS NOT = 1092) ACCURATE CREA TININE CLEARANCE IN PRE DICTING GLOMERULAR FILTR ATION RATE. ESTIMATED GFR IS NOT APPLICABLE F OR DIALYSIS PATIENT S. CBC W/PLT COUNT & AUTO [id number] 05:29:00 Test Item Value Reference Range Comments WHITE BLOOD CELL COUNT (BEAKER) (test code = 7.9 K/ L 3.5 -10.5 775) RED BLOOD CELL COUNT (BEAKER) (test code = 761) 5.45 M/ L 4.63-6.08 HEMOGLOBIN (BEAKER) (test code = 410) 13.9 GM/DL 13.7-17.5 HEMATOCRIT (BEAKER) (test code = 411) 42.6 % 40.1-51.0 MEAN CORPUSCULAR VOLUME (BEAKER) (test code = 78.2 fL 79 .0-92.2 753) MEAN CORPUSCULAR HEMOGLOBIN (BEAKER) (test code 25.5 pg 25.7-32.2 = 751) MEAN CORPUSCULAR HEMOGLOBIN CONC (BEAKER) (test 32.6 GM/DL 32.3-36.5 code = 752) RED CELL DISTRIBUTION WIDTH (BEAKER) (test code 16.1 % 11.6-14.4 = 412) PLATELET COUNT (BEAKER) (test code = 756) 400 K/CU MM 150-45 0 MEAN PLATELET VOLUME (BEAKER) (test code = 754) 10.0 fL 9.4-12.4 NUCLEATED RED BLOOD CELLS (BEAKER) (test code = 0 /100 WBC 0-0 413) NEUTROPHILS RELATIVE PERCENT (BEAKER) (test code 58 % = 429) LYMPHOCYTES RELATIVE PERCENT (BEAKER) (test code 23 % = 430) MONOCYTES RELATIVE PERCENT (BEAKER) (test code = 13 % 431) EOSINOPHILS RELATIVE PERCENT (BEAKER) (test code 4 % = 432) BASOPHILS RELATIVE PERCENT (BEAKER) (test code = 1 % 437) NEUTROPHILS ABSOLUTE COUNT (BEAKER) (test code = 4.62 K/ L 1.78-5.38 670) LYMPHOCYTES ABSOLUTE COUNT (BEAKER) (test code = 1.85 K/ L 1.32-3.57 414) MONOCYTES ABSOLUTE COUNT (BEAKER) (test code = 0.99 K/ L 0 .30-0.82 415) EOSINOPHILS ABSOLUTE COUNT (BEAKER) (test code = 0.33 K/ L 0.04-0.54 416) BASOPHILS ABSOLUTE COUNT (BEAKER) (test code = 0.09 K/ L 0 .01-0.08 417) IMMATURE GRANULOCYTES-RELATIVE PERCENT (BEAKER) 0 % 0-1 (test code = 2801) TROPONIN [id number] 22:36:00 Test Item Value Reference Range Comments TROPONIN I (BEAKER) (test code = 397) 0.05 ng/mL 0.00-0.03 Troponin I (TnI) levels [...] acidosis, acute neurological disease, and persistent tachyarrhythmia.TROPONIN [id number] 16:36:00 Test Item Value Reference Range Comments TROPONIN I (BEAKER) (test code = 397) 0.02 ng/mL 0.00-0.03 Troponin I (TnI) levels [...] neurological disease, and persistent tachyarrhythmia.TSH/FREE T4 IF [id number] 10:58:00 Test Item Value Reference Range Comments THYROID STIMULATING HORMONE (BEAKER) (test code 1.16 uIU/mL 0.35-4.94 = 772) TROPONIN [id number] 10:44:00 Test Item Value Reference Range Comments TROPONIN I (BEAKER) (test code = 397) 0.02 ng/mL 0.00-0.03 Troponin I (TnI) levels [...] disease, and persistent tachyarrhythmia.B-TYPE NATRIURETIC FACTOR (BNP) 2019-01-23 10:44:00 Test Item Value Reference Range Comments B-TYPE NATRIURETIC PEPTIDE (BEAKER) (test code = 597 pg/mL 0-100 700) [id number] 10:05:00 Test Item Value Reference Range Comments MAGNESIUM (BEAKER) (test code = 627) 1.7 mg/dL 1.6-2.6 MR, MRA, BRAIN, WITHOUT [id number] 08:26:00FINAL REPORT MRV Head CLINICAL HISTORY:Stroke, follow upconcern for transverse sinus thrombosis, need MRV please TECHNIQUE: MRV of the head utilizing 2-D wobf-cn-nvcnhx technique. COMPARISON: CTA 01/22/2019 FINDINGS: There is an irregular filling defect within the medial aspect of the left transverse sinus, corresponding with the abnormality seen on yesterday's CTA. The other major dural venous sinuses in the brain are patent. IMPRESSION: Filling defect within the medial aspect of the left transverse sinus remains concerning for venous thrombosis. Signed: [facility] Verified Date/Time: 01/23/2019 08:26:36 BASIC METABOLIC [id number] 05:55:00 Test Item Value Reference Range Comments SODIUM (BEAKER) (test 137 meq/L 136-145 code = 381) POTASSIUM (BEAKER) (test 3.2 meq/L 3.5-5.1 code = 379) CHLORIDE (BEAKER) (test 100 meq/L 98-107 code = 382) CO2 (BEAKER) (test code = 30 meq/L 22-29 355) BLOOD UREA NITROGEN 9 mg/dL 7-21 (BEAKER) (test code = 354) CREATININE (BEAKER) (test 0.80 mg/dL 0.57-1.25 code = 358) GLUCOSE RANDOM (BEAKER) 93 mg/dL 70-105 (test code = 652) CALCIUM (BEAKER) (test 9.3 mg/dL 8.4-10.2 code = 697) EGFR (BEAKER) (test code 97 mL/min/1.73 sq m EST IMATED GFR IS NOT = 1092) ACCURATE CREA TININE CLEARANCE IN PRE DICTING GLOMERULAR FILTR ATION RATE. ESTIMATED GFR IS NOT APPLICABLE F OR DIALYSIS PATIENT S. CBC W/PLT COUNT & AUTO [id number] 05:34:00 Test Item Value Reference Range Comments WHITE BLOOD CELL COUNT (BEAKER) (test code = 7.3 K/ L 3.5 -10.5 775) RED BLOOD CELL COUNT (BEAKER) (test code = 761) 5.34 M/ L 4.63-6.08 HEMOGLOBIN (BEAKER) (test code = 410) 13.4 GM/DL 13.7-17.5 HEMATOCRIT (BEAKER) (test code = 411) 41.5 % 40.1-51.0 MEAN CORPUSCULAR VOLUME (BEAKER) (test code = 77.7 fL 79 .0-92.2 753) MEAN CORPUSCULAR HEMOGLOBIN (BEAKER) (test code 25.1 pg 25.7-32.2 = 751) MEAN CORPUSCULAR HEMOGLOBIN CONC (BEAKER) (test 32.3 GM/DL 32.3-36.5 code = 752) RED CELL DISTRIBUTION WIDTH (BEAKER) (test code 15.6 % 11.6-14.4 = 412) PLATELET COUNT (BEAKER) (test code = 756) 374 K/CU MM 150-45 0 MEAN PLATELET VOLUME (BEAKER) (test code = 754) 9.9 fL 9.4-12.4 NUCLEATED RED BLOOD CELLS (BEAKER) (test code = 0 /100 WBC 0-0 413) NEUTROPHILS RELATIVE PERCENT (BEAKER) (test code 60 % = 429) LYMPHOCYTES RELATIVE PERCENT (BEAKER) (test code 23 % = 430) MONOCYTES RELATIVE PERCENT (BEAKER) (test code = 11 % 431) EOSINOPHILS RELATIVE PERCENT (BEAKER) (test code 4 % = 432) BASOPHILS RELATIVE PERCENT (BEAKER) (test code = 1 % 437) NEUTROPHILS ABSOLUTE COUNT (BEAKER) (test code = 4.38 K/ L 1.78-5.38 670) LYMPHOCYTES ABSOLUTE COUNT (BEAKER) (test code = 1.69 K/ L 1.32-3.57 414) MONOCYTES ABSOLUTE COUNT (BEAKER) (test code = 0.77 K/ L 0 .30-0.82 415) EOSINOPHILS ABSOLUTE COUNT (BEAKER) (test code = 0.32 K/ L 0.04-0.54 416) BASOPHILS ABSOLUTE COUNT (BEAKER) (test code = 0.08 K/ L 0 .01-0.08 417) IMMATURE GRANULOCYTES-RELATIVE PERCENT (BEAKER) 0 % 0-1 (test code = 2801) [id number] 20:49:00 Test Item Value Reference Range Comments POTASSIUM (BEAKER) (test code = 379) 2.8 meq/L 3.5-5.1 MR, BRAIN, WITHOUT [id number] 19:25:00Reason for exam:->Ischemic Stroke EvaluationFINAL REPORT MR, [...] 7:14 PM. Signed: Simran Rajan Verified Date/Time: 01/22/2019 19:25:11 [facility] CTANGIO [id number] 19:16:00FINAL REPORT CLINICAL HISTORY: Neuro deficit, acute, [...] Moderate right and small left pleural effusions IM PRESSION:1.No CT evidence of acute intracranial hemorrhage or territorial infarct. Please see the separate report for the subsequent brain MRI.2.Filling defect within the medial aspect of the left transverse sinus concerning for venous thrombosis.3.Aneurysmal ascending aorta measuring at least 4.9 cm.4 .Moderate right and small left pleural effusions. These findings were discussed with Dr. JOSUE RICH on 01/22/2019 7:14 PM. Signed: Simran Rajan Verified Date/Time: 01/22/2019 19:16:06 CT, CAROTID, [id number] 19:16:00 FINAL REPORT CLINICAL HISTORY: Neuro deficit, acute, stroke suspected TECHNIQUE: Initially, noncontrast head CT images were performed. Contiguous contrast-enhanced axial images through the neck followed by axial images through the head with coronal and sagittal reformations to as sess the arterial circulation. 3-D reconstructions were performed [...] 50% focal stenosis of the left ICA. V ertebral arteries: No occlusion or high-grade stenosis. Moderate [...] Simran Rajan MDReport Verified Date/Time: 01/22/2019 19:16:06 [id number] 11:47:00 Test Item Value Reference Range Comments RPR SCREEN (BEAKER) (test code = 420) Nonreactive Nonreactiv e [id number] 08:23:00 Test Item Value Reference Range Comments MAGNESIUM (BEAKER) (test code = 627) 1.7 mg/dL 1.6-2.6 FastingHEMOGLOBIN [id number] 08:10:00 Test Item Value Reference Range Comments HEMOGLOBIN A1C (BEAKER) (test code = 368) 5.7 % 4.3-6. 1 FastingLIPID [id number] 05:15:00 Test Item Value Reference Range Comments TRIGLYCERIDES (BEAKER) (test code = 540) 56 mg/dL CHOLESTEROL (BEAKER) (test code = 631) 79 mg/dL HDL CHOLESTEROL (BEAKER) (test code = 976) 23 mg/dL LDL CHOLESTEROL CALCULATED (BEAKER) (test code = 45 mg/dL 633) Triglyceride Reference Range: Low Risk <150 Borderline 150-199 High Risk 200-499 Very High Risk >=500Cholesterol Reference Range: Low Risk <200 Borderline 200-239 High Risk >240HDL Cholesterol Reference Range: Low Risk >=60 High Risk <40LDL Cholesterol Reference Range: Optimal <100 Near Optimal 100-129 Borderline 130-159 High 160-189 Very High >=190 FastingTROPONIN [id number] 05:11:00 Test Item Value Reference Range Comments TROPONIN I (BEAKER) (test code = 397) 0.02 ng/mL 0.00-0.03 Troponin I (TnI) levels [...] neurological disease, and persistent tachyarrhythmia.FastingVITAMIN B12 AND [id number] 04:01:00 Test Item Value Reference Range Comments VITAMIN B12 (BEAKER) (test code = 774) 1973 pg/mL 213-816 FOLATE (BEAKER) (test code = 362) 18.5 ng/mL >=7.0 TSH/FREE T4 IF [id number] 03:48:00 Test Item Value Reference Range Comments THYROID STIMULATING HORMONE (BEAKER) (test code 1.38 uIU/mL 0.35-4.94 = 772) TROPONIN [id number] 00:15:00 Test Item Value Reference Range Comments TROPONIN I (BEAKER) (test code = 397) 0.02 ng/mL 0.00-0.03 Troponin I (TnI) levels [...] acute neurological disease, and persistent tachyarrhythmia.BASIC METABOLIC [id number] 00:11:00 Test Item Value Reference Range Comments SODIUM (BEAKER) (test 133 meq/L 136-145 code = 381) POTASSIUM (BEAKER) (test 2.7 meq/L 3.5-5.1 code = 379) CHLORIDE (BEAKER) (test 95 meq/L 98-107 code = 382) CO2 (BEAKER) (test code = 28 meq/L 22-29 355) BLOOD UREA NITROGEN 9 mg/dL 7-21 (BEAKER) (test code = 354) CREATININE (BEAKER) (test 0.82 mg/dL 0.57-1.25 code = 358) GLUCOSE RANDOM (BEAKER) 139 mg/dL 70-105 (test code = 652) CALCIUM (BEAKER) (test 9.3 mg/dL 8.4-10.2 code = 697) EGFR (BEAKER) (test code 95 mL/min/1.73 sq m EST IMATED GFR IS NOT = 1092) ACCURATE CREA TININE CLEARANCE IN PRE DICTING GLOMERULAR FILTR ATION RATE. ESTIMATED GFR IS NOT APPLICABLE F OR DIALYSIS PATIENT S. Specimen slightly ictericPROTHROMBIN TIME/[id number] 23:48:00 Test Item Value Reference Range Comments PROTIME (BEAKER) (test code = 759) 14.8 seconds 11.9-14.2 INR (BEAKER) (test code = 370) 1.2 <=5.9 Effective 07/24/2018: PT Reference Range ChangeNew: 11.9-14.2 Previous: 11.7- 14.7RECOMMENDED COUMADIN/WARFARIN INR THERAPY RANGESSTANDARD DOSE: 2.0-3.0 Includes: PROPHYLAXIS for venous thrombosis, systemic embolization; TREATMENT for venous thrombosis and/or pulmonary embolus.HIGH RISK: Target INR is2.5-3.5 for patients wiht mechanical heart valves.RAD, CHEST, 1 VIEW, NON [id number] 23:46:00Reason for exam:->strokeShould this be performed at the bedside?->YesFINAL REPORT INDICATION: stroke TECHNIQUE: Chest radiograph, single view, portable technique. FINDINGS / IMPRESSION: Patient is status post median sternotomy.Heart shadow is enlarged and there is a small right pleural effusion.No overt pulmonary edema, discrete pneumonia, or pneumothorax is demonstrated.Osseous structures unremarkable. Signed: Shyam Grant VerifiedDate/Time: 01/21/2019 23:46:27 Reading Location: [address] Consult Reading Room CBC W/PLT COUNT & AUTO [id number] 23:39:00 Test Item Value Reference Range Comments WHITE BLOOD CELL COUNT (BEAKER) (test code = 8.0 K/ L 3.5 -10.5 775) RED BLOOD CELL COUNT (BEAKER) (test code = 761) 5.36 M/ L 4.63-6.08 HEMOGLOBIN (BEAKER) (test code = 410) 13.5 GM/DL 13.7-17.5 HEMATOCRIT (BEAKER) (test code = 411) 41.6 % 40.1-51.0 MEAN CORPUSCULAR VOLUME (BEAKER) (test code = 77.6 fL 79 .0-92.2 753) MEAN CORPUSCULAR HEMOGLOBIN (BEAKER) (test code 25.2 pg 25.7-32.2 = 751) MEAN CORPUSCULAR HEMOGLOBIN CONC (BEAKER) (test 32.5 GM/DL 32.3-36.5 code = 752) RED CELL DISTRIBUTION WIDTH (BEAKER) (test code 15.1 % 11.6-14.4 = 412) PLATELET COUNT (BEAKER) (test code = 756) 376 K/CU MM 150-45 0 MEAN PLATELET VOLUME (BEAKER) (test code = 754) 9.7 fL 9.4-12.4 NUCLEATED RED BLOOD CELLS (BEAKER) (test code = 0 /100 WBC 0-0 413) NEUTROPHILS RELATIVE PERCENT (BEAKER) (test code 66 % = 429) LYMPHOCYTES RELATIVE PERCENT (BEAKER) (test code 19 % = 430) MONOCYTES RELATIVE PERCENT (BEAKER) (test code = 10 % 431) EOSINOPHILS RELATIVE PERCENT (BEAKER) (test code 3 % = 432) BASOPHILS RELATIVE PERCENT (BEAKER) (test code = 1 % 437) NEUTROPHILS ABSOLUTE COUNT (BEAKER) (test code = 5.30 K/ L 1.78-5.38 670) LYMPHOCYTES ABSOLUTE COUNT (BEAKER) (test code = 1.52 K/ L 1.32-3.57 414) MONOCYTES ABSOLUTE COUNT (BEAKER) (test code = 0.78 K/ L 0 .30-0.82 415) EOSINOPHILS ABSOLUTE COUNT (BEAKER) (test code = 0.24 K/ L 0.04-0.54 416) BASOPHILS ABSOLUTE COUNT (BEAKER) (test code = 0.08 K/ L 0 .01-0.08 417) IMMATURE GRANULOCYTES-RELATIVE PERCENT (BEAKER) 1 % 0-1 (test code = 2801)
--- OUTSIDE RECORDS SUMMARY | 2019-07-04 18:05 | XMS REPORT | Summary of Care ---
:1955 Author Organization [facility] - [facility] Address [address] [place] [id number] Care Team Providers Name Role Phone Dominic Sanchez Primary Care Provider Kinjal Edmond MD Primary Care Provider Reason for Visit Reason Comments Appointment 1wk hosp fu appt Encounter Details Date Type Department Care Team Description 06/18/2019 Telephone [facility] Family Kinjal Edmond A ppointment (1wk [facility] fu appt) [address] [place] [address] [place] [phone] Allergies No Known Allergiesdocumented as of this encounter (statuses as of 06/20/2019) Medications Medication Sig Dispensed Refills Start Date [...] Take 1 tablet by 30 tablet 11/12/2018 A ctive tabletIndications: mouth daily. Medication refill FOLIC ACID [...] Take 1 capsule by 90 capsule 1 01/16/20 19 Active capsuleIndications: mouth daily. Essential hypertension metoprolol succinate Take 1 tablet by 180 tablet 0 02/21/2019 Active XL 100 mg 24 hr mouth 2 (two) tabletIndications: times daily. Medication refill FUROSEMIDE 40 mg TAKE 1 TABLET BY 180 tablet 1 05/26/2019 Active tabletIndications: MOUTH EVERY Medication refill MORNING AND 1 TABLET EVERY EVENING documented as of this encounter (statuses as of 06/20/2019) Active Problems Problem Noted Date Low TSH level 11/13/2018 Cholelithiasis 06/04/2018 Fatty liver 06/04/2018 Pleural effusion on right 06/04/2018 Nephrolithiasis 06/04/2018 Alcohol use 05/13/2018 Red eyes 05/13/2018 Hypokalemia 10/11/2017 Acute on chronic diastolic congestive heart failure Hypotension 09/24/2017 COPD (chronic obstructive pulmonary disease) 8 Atrial fibrillation with RVR 06/11/2017 Bilateral renal cysts 10/07/2016 Renal insufficiency 10/04/2016 Pulmonary nodules 04/12/2016 Overview: DUE FOR FOLLOW-UP SCREENING CHEST CT 03/30 018. Aortic aneurysm, thoracic 04/12/2016 Heart disease 04/12/2016 Erythrocytosis 12/27/2015 Essential hypertension 12/24/2015 Chronic low back pain, unspecified back pain lateralit y, with sciatica 12/24/2015 presence unspecified Chronic pain of both knees 12/24/2015 Tobacco use 12/24/2015 B12 deficiency Folic acid deficiency Abnormal LFTs documented as of this encounter (statuses as of 06/20/2019) Social History Tobacco Use Types Packs/Day Years [...] Treatment Date Type Specialty Care Team Description 06/23/2019 Telemedicine Visit Family Medicine Irina Edmond MD [address] [phone] Health Maintenance Due Date Last Done Comments [...] Problems Progress Quit using Tobacco Use No Feli, tobacco Kinjal Law, (cigarettes, smokeless, etc) documented as of this encounter Results Not on filedocumented in this encounter Insurance Payer Benefit Plan / Group Subscriber ID Effective Dates Phone Address Type [employer] [id number] 2018-Present PPO documented as of this encounter
--- NOTE | 2019-07-04 19:06 | RAD REPORT ---
EXAM DESCRIPTION: RAD - Hand Right 3 View - 07/04/2019 6:56 pm CLINICAL HISTORY: Right hand pain status post injury FINDINGS: Bandage overlies the fifth digit obscuring detail. No gross fracture or dislocation
[2019-07-04] MEDS ORDERED: BUPIVACAINE 0.5% PF 10 ML VIAL ONE (19:26)
[2019-07-04] MEDS ORDERED: LIDOCAINE 1% 20 ML MDV ONE (19:26)
--- NOTE | 2019-07-04 20:33 | EDPHYS ---
Physician Documentation [facility] Name: Tex Vergara Age: 63 yrs Sex: Male : 1955 Arrival Date: 07/04/2019 Time: 17:47 Bed 15 Private MD: ED Physician Gopal Rasmussen HPI: 07/03 19:00 This 63 yrs old Male presents to ER via Wheelchair with complaints of Finger cp laceration. Historical: - Allergies: 18:00 No Known Allergies; sv - PMHx: 18:00 Atrial Fib; CHF; COPD; Hypertension; TIA; sv - PSHx: 18:00 CABG; feeding tube; sv ROS: 19:05 Skin: Positive for laceration(s), of the distal phalanx collins side right small finger. cp 19:05 Constitutional: Negative for fever. cp 19:05 Neck: Negative for pain with movement, pain at rest. 19:05 Cardiovascular: Negative for chest pain. 19:05 Respiratory: Negative for shortness of breath. 19:05 Abdomen/GI: Negative for abdominal pain. 19:05 Neuro: Negative for altered mental status, loss of consciousness, syncope. 19:05 All other systems are negative. Exam: 19:15 Constitutional: The patient appears in no acute distress, alert, awake, non-toxic, well cp developed, frail. 19:15 Head/Face: Normocephalic, atraumatic. cp 19:15 Musculoskeletal/extremity: Extremities: grossly normal except: noted in the distal phalanx right small finger: ecchymosis, laceration, pain, swelling, tenderness, Perfusion: the extremity is pink, with brisk capillary refill, Sensation intact. Vital Signs: 18:00 BP 142 / 64; Pulse 64; Resp 16; Temp 97.7(O); Pulse Ox 95% ; Height 5 ft. 8 in. (172.72 sv cm); 21:00 BP 136 / 68; Pulse 84; Resp 16; Pulse Ox 97% on R/A; Pain 0/10; jb4 Laceration: 20:20 Wound Repair of 2.5cm ( 1.0in ) subcutaneous laceration to distal phalanx collins side cp right small finger. Irregularly shaped.. Distal neuro/vascular/tendon intact. Anesthesia: Digital block administered with 5 mls of Lido/Marcaine. Wound prep: Moderate cleansing by me, Wound irrigation by me. Skin closed with 10 5-0 Prolene using simple sutures and sterile technique. Dressed with tube gauze, finger splint. Patient tolerated well. MDM: 18:49 Patient medically screened. [facility] 19:00 Differential diagnosis: dislocation, open fracture, contusion, laceration. cp 20:32 Data reviewed: vital signs, nurses notes, radiologic studies, plain films. cp 20:32 Counseling: I had a detailed discussion with the patient and/or guardian regarding: the cp historical points, exam findings, and any diagnostic results supporting the discharge/admit diagnosis, radiology results, the need for outpatient follow up, a family practitioner, to return to the emergency department if symptoms worsen or persist or if there are any questions or concerns that arise at home. Response to treatment: the patient's symptoms have markedly improved after treatment, and as a result, I will discharge patient. 07/03 18:05 Order name: Hand Right 3 View XRAY; Complete Time: 19:09 sv 07/03 19:09 Interpretation: Report reviewed. 07/03 19:10 Order name: Dressing - Wound; Complete Time: 21:01 cp 07/03 19:10 Order name: Gloves, Sterile; Complete Time: 19:25 cp 07/03 19:10 Order name: Setup Suture Tray; Complete Time: 19:24 cp Administered Medications: 19:50 Drug: Lidocaine (1 %) 10 ml {Note: Addministered by ER provider .} Volume: 20 ml; jb4 Route: Infiltration; 20:20 Follow up: Response: No adverse reaction jb4 19:50 Drug: Marcaine (0.5 %) 10 ml {Note: Administered by ER provider..} Volume: 10 ml; jb4 Route: Infiltration; 20:20 Follow up: Response: No adverse reaction jb4 Disposition: 20:45 Chart complete. 07/04 04:01 Co-signature as Attending Physician, Gopal Rasmussen MD. pkl Disposition: 07/04/19 20:33 Discharged to Home. Impression: Laceration without foreign body of finger without damage to nail - right fifth finger. - Condition is Stable. - Discharge Instructions: Laceration Care, Adult. - Prescriptions for Keflex 500 mg Oral Capsule - take 1 capsule by ORAL route every 8 hours for 10 days; 30 capsule. Tramadol 50 mg Oral Tablet - take 1 tablet by ORAL route every 8 hours as needed; 12 tablet. - Medication Reconciliation Form, Thank You Letter, Antibiotic Education, Prescription Opioid Use form. - Follow up: Private Physician; When: 10 - 14 days; Reason: Staple/Suture removal. - Problem is new. - Symptoms have improved. Signatures: Dispatcher [employer] Lyn Fragsoo RN RN sv Anderson, Corey, MD MD cha Lam, Pin, MD MD pkl Page, Corey, PA PA Brett Rodríguez RN RN jb4 Corrections: (The following items were deleted from the chart) 07/03 20:19 20:15 Dressing - Wound ordered. cp jb4 21:01 20:33 07/04/2019 20:33 Discharged to Home. Impression: Laceration without foreign body jb4 of finger without damage to nail - right fifth finger. Condition is Stable. Forms are Medication Reconciliation Form, Thank You Letter, Antibiotic Education, Prescription Opioid Use. Follow up: Private Physician; When: 10 - 14 days; Reason: Staple/Suture removal. Problem is new. Symptoms have improved. cp
--- NOTE | 2019-07-04 20:33 | ER ---
Nurse's Notes [facility] Name: Tex Vergara Age: 63 yrs Sex: Male : 1955 Arrival Date: 07/04/2019 Time: 17:47 Bed 15 Private MD: Diagnosis: Laceration without foreign body of finger without damage to nail-right fifth finger Presentation: 07/03 17:53 Chief complaint: Patient states: right 5th digit laceration after falling this morning sv at 0300 and got it caught in between furniture at home. Pt is on Eliquis. Coronavirus screen: Proceed with normal triage. Patient denies a cough. Patient denies shortness of breath or difficulty breathing. Patient denies measured and/or subjective temperature greater than 100.4F prior to today's visit. Patient denies travel on a cruise ship or to a country the [facility] currently lists as an affected area. Patient denies contact with known and/or suspected case of COVID-19. Ebola Screen: No symptoms or risks identified at this time. Risk Assessment: Do you want to hurt yourself or someone else? Patient reports no desire to harm self or others. Onset of symptoms was July 04, 2019 at 03:00. 17:53 Method Of Arrival: Wheelchair sv 17:53 Acuity: SUMMER 3 sv 18:00 Initial Sepsis Screen: Does the patient meet any 2 criteria? No. Patient's initial sv sepsis screen is negative. Does the patient have a suspected source of infection? No. Patient's initial sepsis screen is negative. Triage Assessment: 18:05 General: Appears in no apparent distress. comfortable, Behavior is calm, cooperative, sv appropriate for age. Pain: Complains of pain in right little finger. Neuro: Level of Consciousness is awake, alert, obeys commands. Respiratory: Respiratory effort is even, unlabored. Injury Description: Laceration sustained to right little finger is 0.5 to 2.5 cm long, was sustained 12-24 hours ago. a small amount of bleeding noted at this time. Historical: - Allergies: 18:00 No Known Allergies; sv - PMHx: 18:00 Atrial Fib; CHF; COPD; Hypertension; TIA; sv - PSHx: 18:00 CABG; feeding tube; sv Screenin:00 Abuse screen: Denies threats or abuse. Nutritional screening: No deficits noted. jb4 Tuberculosis screening: No symptoms or risk factors identified. Fall Risk Secondary diagnosis (15 points) impaired mobility, Gait- Weak (10 pts.). Total Jason Fall Scale indicates Low Risk Score (25-44 pts). Fall prevention measures have been instituted. Side Rails Up X 2 Placed close to Nursing Station Frequent Obs/Assesments occuring Family Present and informed to notify staff if they need to leave bedside As available Patient and Family Educated on Fall Prevention Program and strategies. Assessment: 19:00 General: Appears in no apparent distress. comfortable, Behavior is calm, cooperative, jb4 appropriate for age. Pain: Denies pain. Neuro: Level of Consciousness is awake, alert, obeys commands, Oriented to person, place, time, situation. Cardiovascular: Patient's skin is warm and dry. Respiratory: Airway is patent Respiratory effort is even, unlabored, Respiratory pattern is regular, symmetrical. GI: No signs and/or symptoms were reported involving the gastrointestinal system. : No signs and/or symptoms were reported regarding the genitourinary system. EENT: No signs and/or symptoms were reported regarding the EENT system. Derm: Skin is pink, warm \T\ dry. Musculoskeletal: Circulation, motion, and sensation intact. Range of motion: intact in all extremities. Injury Description: Laceration sustained to right little finger. 20:00 Reassessment: Patient appears in no apparent distress at this time. Patient and/or jb4 family updated on plan of care and expected duration. Pain level reassessed. Patient is alert, oriented x 3, equal unlabored respirations, skin warm/dry/pink. 21:00 Reassessment: Patient appears in no apparent distress at this time. Patient and/or jb4 family updated on plan of care and expected duration. Pain level reassessed. Patient is alert, oriented x 3, equal unlabored respirations, skin warm/dry/pink. Vital Signs: 18:00 BP 142 / 64; Pulse 64; Resp 16; Temp 97.7(O); Pulse Ox 95% ; Height 5 ft. 8 in. (172.72 sv cm); 21:00 BP 136 / 68; Pulse 84; Resp 16; Pulse Ox 97% on R/A; Pain 0/10; jb4 ED Course: 17:47 Patient arrived in ED. mr 17:53 Bandage applied. sv 17:59 Triage completed. sv 18:00 Arm band placed on. sv 18:45 Peter Luong PA is PHCP. cp 18:45 Peter Peacock MD is Attending Physician. cp 18:50 Lj Mills, RN is Primary Nurse. em 18:56 Hand Right 3 View XRAY In Process Unspecified. EDMS 19:00 Patient has correct armband on for positive identification. Bed in low position. Call jb4 light in reach. Side rails up X 1. Pulse ox on. NIBP on. 19:20 Gopal Rasmussen MD is Attending Physician. cp 19:50 Assist provider with laceration repair on right little finger that was 2.5 cm. or less jb4 using sutures. Set up tray. Performed by Peter CHAMBERS Dressed with Kerlix, Patient tolerated well. 21:00 Patient did not have IV access during this emergency room visit. jb4 Administered Medications: 19:50 Drug: Lidocaine (1 %) 10 ml {Note: Addministered by ER provider .} Volume: 20 ml; jb4 Route: Infiltration; 20:20 Follow up: Response: No adverse reaction jb4 19:50 Drug: Marcaine (0.5 %) 10 ml {Note: Administered by ER provider..} Volume: 10 ml; jb4 Route: Infiltration; 20:20 Follow up: Response: No adverse reaction jb4 Outcome: 20:33 Discharge ordered by MD. cp 21:00 Discharged to home via wheelchair, with family. jb4 21:00 Condition: stable 21:00 Discharge instructions given to patient, family, Instructed on discharge instructions, follow up and referral plans. medication usage, Demonstrated understanding of instructions, follow-up care, medications, Prescriptions given X 2. 21:01 Patient left the ED. jb4 Signatures: Dispatcher [employer] Lyn Fragoso RN RN Anna Fong mr Lj Mills, RN RN Peter Luong PA PA cp Bryson, James, ALMA RN jb4 Corrections: (The following items were deleted from the chart) 18:07 17:53 Chief complaint: Patient states: right 5th digit laceration after falling this sv morning and got it caught in between furniture at home. sv
[2019-07-04 21:27] VITALS: BP 142/64; TEMP 97.7; O2SAT 95
== END 2019-07-04 21:01 | disposition home or self-care (01) ==
LOC: ER 17:45
PROC: 0JQJ0ZZ Repair Right Hand Subcutaneous Tissue and Fascia, Open Approach (ICD-10-PCS; principal; 2019-07-04)
DX: S61.216A Laceration without foreign body of right little finger without damage to nail, initial encounter (principal); W19.XXXA Unspecified fall, initial encounter; Y93.9 Activity, unspecified; Y92.009 Unspecified place in unspecified non-institutional (private) residence as the place of occurrence of the external cause; I10 Essential (primary) hypertension; Z95.1 Presence of aortocoronary bypass graft
CPT/HCPCS: 99284

== ENCOUNTER 2019-07-16 14:13 | Emergency (ER) | payer OTHER ==
--- NOTE | 2019-07-16 14:55 | ER ---
Nurse's Notes [facility] Name: Tex Vergara Age: 63 yrs Sex: Male : 1955 Arrival Date: 07/16/2019 Time: 14:14 Bed 11 Private MD: Diagnosis: Encounter for removal of sutures Presentation: 07/15 14:51 Chief complaint: Patient states: need to get sutures removed from finger that were dm5 placed on 07/04/19. Coronavirus screen: Proceed with normal triage. Patient denies a cough. Patient denies shortness of breath or difficulty breathing. Patient denies measured and/or subjective temperature greater than 100.4F prior to today's visit. Patient denies travel on a cruise ship or to a country the [facility] currently lists as an affected area. Patient denies contact with known and/or suspected case of COVID-19. Ebola Screen: Patient negative for fever greater than or equal to 101.5 degrees Fahrenheit, and additional compatible Ebola Virus Disease symptoms Patient denies exposure to infectious person. Patient denies travel to an Ebola-affected area in the 21 days before illness onset. No symptoms or risks identified at this time. Initial Sepsis Screen: Does the patient meet any 2 criteria? No. Patient's initial sepsis screen is negative. Does the patient have a suspected source of infection? No. Patient's initial sepsis screen is negative. Risk Assessment: Do you want to hurt yourself or someone else? Patient reports no desire to harm self or others. Onset of symptoms was July 04, 2019. 14:51 Method Of Arrival: Ambulatory dm5 14:51 Acuity: SUMMER 5 dm5 Historical: - Allergies: 14:54 No Known Allergies; dm5 - PMHx: 14:54 Atrial Fib; CHF; COPD; Hypertension; TIA; dm5 - PSHx: 14:54 CABG; dm5 - Immunization history:: Adult Immunizations up to date. - Social history:: Smoking status: unknown. Screenin:16 Abuse screen: Denies threats or abuse. Denies injuries from another. Nutritional iw screening: No deficits noted. Tuberculosis screening: No symptoms or risk factors identified. Fall Risk Fall in past 12 months (25 points). Assessment: 15:00 General: Appears in no apparent distress. Behavior is calm, cooperative. Pain: Denies iw pain. Neuro: Level of Consciousness is awake, alert, obeys commands, Oriented to person, place, time, situation, Moves all extremities. Cardiovascular: Patient's skin is warm and dry. Respiratory: Respiratory effort is even, unlabored, Respiratory pattern is regular. Derm: Skin is fragile, is thin. Musculoskeletal: Range of motion: intact in all extremities. Injury Description: lac repair to right pinky finger, sutures removed by TANIA Dey, wound dressed. Vital Signs: 15:00 BP 134 / 75; Pulse 84; Resp 16; Temp 98.1; Pulse Ox 100% on R/A; Pain 0/10; iw ED Course: 14:14 Patient arrived in ED. ag5 14:34 Yissel Díaz FNP-C is [facility]. kb 14:34 Carlos Olivier MD is Attending Physician. kb 14:51 Evelin Doll, RN is Primary Nurse. dm5 14:53 Triage completed. dm5 14:57 Arm band placed on right wrist. dm5 15:00 Patient has correct armband on for positive identification. iw 15:16 No provider procedures requiring assistance completed. Patient did not have IV access iw during this emergency room visit. Administered Medications: No medications were administered Outcome: 14:54 Discharge ordered by MD. kb 15:16 Discharged to home via wheelchair. iw 15:16 Condition: good 15:16 Discharge instructions given to patient, Instructed on discharge instructions, follow up and referral plans. Demonstrated understanding of instructions, follow-up care. 15:16 No charge visit due to suture removal. 15:17 Patient left the ED. iw Signatures: Yissel Díaz FNP-C FNP-Ckb Markwardt, Deana, RN RN 5 Peggy Ruggiero RN RN Marco A Bañuelos ag5
--- NOTE | 2019-07-16 14:55 | EDPHYS ---
Physician Documentation [facility] Name: Tex Vergara Age: 63 yrs Sex: Male : 1955 Arrival Date: 07/16/2019 Time: 14:14 Bed 11 Private MD: ED Physician Carlos Olivier HPI: 07/15 14:55 This 63 yrs old Male presents to ER via Ambulatory with complaints of Suture kb Removal. 14:54 The patient has The patient has sutures on the palmar aspect of distal phalanx of right kb little finger. The patient has not experienced similar symptoms in the past. The patient has not recently seen a physician. 14:55 Previous treatment: The patient was initially treated 12 day(s) ago, the care was kb rendered at [facility], Treatment type: The patient's original treatment included sutures. Sutures/leighann progress: The patient has no c/o's. The wound is well-healing with no redness, swelling, discharge, or dehiscence reported. Historical: - Allergies: 14:54 No Known Allergies; dm5 - PMHx: 14:54 Atrial Fib; CHF; COPD; Hypertension; TIA; dm5 - PSHx: 14:54 CABG; dm5 - Immunization history:: Adult Immunizations up to date. - Social history:: Smoking status: unknown. ROS: 14:55 Constitutional: Negative for fever, chills, and weight loss, Cardiovascular: Negative kb for chest pain, palpitations, and edema, Respiratory: Negative for shortness of breath, cough, wheezing, and pleuritic chest pain, Abdomen/GI: Negative for abdominal pain, nausea, vomiting, diarrhea, and constipation, MS/Extremity: Negative for injury and deformity, Neuro: Negative for headache, weakness, numbness, tingling, and seizure. 14:55 Skin: Positive for sutures in place. Exam: 14:55 Constitutional: This is a well developed, well nourished patient who is awake, alert, kb and in no acute distress. Head/Face: Normocephalic, atraumatic. Chest/axilla: Normal chest wall appearance and motion. Nontender with no deformity. No lesions are appreciated. Cardiovascular: Regular rate and rhythm with a normal S1 and S2. No gallops, murmurs, or rubs. Normal PMI, no JVD. No pulse deficits. Respiratory: Lungs have equal breath sounds bilaterally, clear to auscultation and percussion. No rales, rhonchi or wheezes noted. No increased work of breathing, no retractions or nasal flaring. Abdomen/GI: Soft, non-tender, with normal bowel sounds. No distension or tympany. No guarding or rebound. No evidence of tenderness throughout. MS/ Extremity: Pulses equal, no cyanosis. Neurovascular intact. Full, normal range of motion. Neuro: Awake and alert, GCS 15, oriented to person, place, time, and situation. Cranial nerves II-XII grossly intact. Motor strength 5/5 in all extremities. Sensory grossly intact. Cerebellar exam normal. Normal gait. 14:55 Skin: Wound recheck: Suture laceration closure: the wound is healing well, the edges are well approximated, no evidence of dehiscence, no drainage, no erythema, no swelling. Vital Signs: 15:00 BP 134 / 75; Pulse 84; Resp 16; Temp 98.1; Pulse Ox 100% on R/A; Pain 0/10; iw Procedures: 14:55 Suture/Staple removal: Removed 10 sutures, from palmar aspect of distal phalanx of kb right little finger, site appears well healed, Patient tolerated well. MDM: 14:37 Patient medically screened. kb 14:58 Data reviewed: vital signs, nurses notes. Data interpreted: Pulse oximetry: on room air kb is 100 %. Interpretation: normal. Counseling: I had a detailed discussion with the patient and/or guardian regarding: the historical points, exam findings, and any diagnostic results supporting the discharge/admit diagnosis, the need for outpatient follow up, a family practitioner, to return to the emergency department if symptoms worsen or persist or if there are any questions or concerns that arise at home. Administered Medications: No medications were administered Disposition: 07/16 09:15 Co-signature as Attending Physician, Carlos Olivier MD I agree with the assessment and kdr plan of care. Disposition: 07/16/19 14:54 Discharged to Home. Impression: Encounter for removal of sutures. - Condition is Stable. - Discharge Instructions: Suture Removal, Care After. - Medication Reconciliation Form, Thank You Letter, Antibiotic Education, Prescription Opioid Use form. - Follow up: Emergency Department; When: As needed; Reason: Worsening of condition. Follow up: Private Physician; When: 2 - 3 days; Reason: Recheck today's complaints, Continuance of care, Re-evaluation by your physician. Signatures: Yissel Díaz FNP-C FNP-Evelin Olmstead, RN RN dm5 Carlos Olivier MD MD kdr Peggy Ruggiero RN RN iw Corrections: (The following items were deleted from the chart) 07/15 14:56 14:54 The patient has kb kb 15:17 14:54 07/16/2019 14:54 Discharged to Home. Impression: Encounter for removal of iw sutures. Condition is Stable. Forms are Medication Reconciliation Form, Thank You Letter, Antibiotic Education, Prescription Opioid Use. Follow up: Emergency Department; When: As needed; Reason: Worsening of condition. Follow up: Private Physician; When: 2 - 3 days; Reason: Recheck today's complaints, Continuance of care, Re-evaluation by your physician. kb
[2019-07-16 15:23] VITALS: BP 134/75; TEMP 98.1; O2SAT 100
--- OUTSIDE RECORDS SUMMARY | 2019-07-16 15:25 | XMS REPORT | Clinical Summary ---
:1955 Author Organization [facility] Address [address] [place] [address] Care Team Providers Name Role Phone Pcp, No Primary Care Provider Unavailable Allergies No Known Allergies Medications Medication Sig Dispensed Refills Start Date End Date Status furosemide (LASIX) Take 40 mg by 0 Active 40 MG tablet mouth 2 (two) times daily. folic acid Take 1 mg by 0 Active (FOLVITE) 1 MG mouth daily. tablet amiodarone Take 1 tablet 90 tablet 0 04/26/2019 07/25/2019 Act azra (PACERONE) 400 MG (400 mg tablet total) by mouth daily for 90 days. apixaban (ELIQUIS) Take 1 tablet 180 tablet 0 04/25/201907/23 Active 5 mg Tab tablet (5 mg total) by mouth 2 (two) times daily for 90 days. aspirin 81 MG Take 1 tablet 90 tablet 0 04/26/2019 07/25/2019 Active chewable tablet (81 mg total) by mouth daily for 90 days. metoprolol tartrate Take 1 tablet 180 tablet 0 04/25/201906/27 Active (LOPRESSOR) 25 MG (25 mg total) tablet by mouth 2 (two) times daily for 90 days. midodrine Take 1 tablet 270 tablet 0 04/25/2019 07/24/2019 Act azra (PROAMATINE) 5 MG (5 mg total) tablet by mouth 3 (three) times daily for 90 days. atorvastatin Take 0.5 15 tablet 11 06/09/2019 06/08/2020 Activ e (LIPITOR) 80 MG tablets (40 tablet mg total) by mouth nightly. potassium chloride Take 1 tablet 30 tablet 11 06/09/20192020 Active SA (K-DUR,KLOR-CON) (20 mEq 20 MEQ tablet total) by mouth daily. thiamine 100 MG Take 1 tablet 30 tablet 11 06/09/2019 1 Active tablet (100 mg total) by mouth daily. lactulose 30 mLs (20 g 0 06/09/2019 Active (CHRONULAC) 20 total) by gram/30 mL solution G-tube route daily as needed (constipation ). dilTIAZem Take 120 mg 0 04/25/2019 Discont inued (CARDIZEM) 120 MG by mouth tablet daily. metOLazone Take 5 mg by 0 04/25/2019 Disco ntinued (ZAROXOLYN) 5 MG mouth twice a tabletIndications: week. hypertension, takes it Sunday and Sunday magnesium oxide Take 400 mg 0 04/25/2019 D iscontinued (MAG-OX) 400 mg by mouth (241.3 mg daily. magnesium) tablet gabapentin Take 300 mg 0 04/25/2019 Discon tinued (NEURONTIN) 300 MG by mouth 3 capsule (three) times daily. metoprolol Take 100 mg 0 04/25/2019 Discon tinued (TOPROL-XL) 100 MG by mouth 2 24 hr (two) times tabletIndications: daily. hypertension apixaban (ELIQUIS) Take 1 tablet 60 tablet 1 01/24/20192018 5 mg Tab tablet (5 mg total) by mouth 2 (two) times daily for 30 days. nicotine (NICODERM Place 1 patch 28 patch 0 01/25/20192018 CQ) 14 mg/24 hr onto the skin patch daily for 30 days. thiamine 100 MG Take 1 tablet 30 tablet 11 01/25/2019 0 Discontinued tablet (100 mg total) by mouth daily. atorvastatin Take 1 tablet 30 tablet 11 01/24/2019 06/09/2019 D iscontinued (LIPITOR) 80 MG (80 mg total) tablet by mouth nightly. potassium chloride Take 2 60 tablet 11 01/25/2019 06/09/2019 Discontinued SA (K-DUR,KLOR-CON) tablets (40 20 MEQ tablet mEq total) by mouth daily. pantoprazole Take 1 tablet 90 tablet 0 04/26/2019 06/02/2019 D iscontinued (PROTONIX) 40 MG (40 mg total) tablet by mouth daily for 90 days. QUEtiapine Take 1 tablet 30 tablet 0 04/25/2019 05/25/2019 Exp ired (SEROQUEL) 25 MG (25 mg total) tablet by mouth nightly for 30 days. fluconazole Take 1 tablet 4 tablet 0 04/25/2019 04/29/2019 Ex pired (DIFLUCAN) 200 MG (200 mg tablet total) by mouth daily for 4 days. metOLazone Take 5 mg by 0 06/09/2019 Disco ntinued (ZAROXOLYN) 5 MG mouth twice a tablet week On Sunday and Sunday . QUEtiapine Take 12.5 mg 0 06/09/2019 Disco ntinued (SEROQUEL) 25 MG by mouth tablet nightly. dilTIAZem (DILACOR Take 120 mg 0 0 Discontinued XR) 120 MG 24 hr by mouth capsule daily. gabapentin Take 300 mg 0 06/09/2019 Discon tinued (NEURONTIN) 300 MG by mouth 3 capsule (three) times daily. magnesium oxide Take 400 mg 0 06/09/2019 D iscontinued (MAG-OX) 400 mg by mouth (241.3 mg daily. magnesium) tablet Active Problems Problem Noted Date Volume overload 05/30/2019 Delirium 04/20/2019 Dysphagia 04/19/2019 Severe protein-calorie malnutrition 04/19/2019 COPD (chronic obstructive pulmonary disease) 0 CKD (chronic kidney disease) stage 2, GFR 60-89 ml/min 04/19/2019 Atelectasis 04/04/2019 Acute on chronic diastolic CHF (congestive heart failu re), NYHA class 4 03/21/2019 Atrial fibrillation 03/21/2019 Pneumonia 03/21/2019 Hydropneumothorax 03/21/2019 Acute metabolic encephalopathy 03/20/2019 Acute respiratory failure with hypoxia and hypercapnia 03/19/2019 Hypovolemic shock Resolved Problems Problem Noted Date Resolved Date History of alcohol use disorder 04/19/2019 05/30/19 20 Stroke (cerebrum) 01/21/2019 05/30/2019 Encounters Date Type Specialty Care Team Description 05/31/2019 Orders Only General Internal Medicine 05/30/2019 Hospital Encounter Intensive Care Serafin Meredith Acute metabolic encephalopathy; Sultana Mayorga MD Acute on chronic diastolic CHF (congesti ve heart failure), NYHA class 4 (HCC); 06/09/2019 Liza Ray Chronic atrial fibrillation; Simran Licona, Dysphagia, u nspecified type; Hydropneumothorax; Alberto, Chimkama Acute respirat ory failure with hypoxia and hypercapnia (HCC); MD Ammy Simple chronic bronchitis (HCC); France Drake History of alcohol use disorder; MD Leonor Severe protein- calorie malnutrition (HCC); Metabolic alkal osis; Elevated liver function tests 05/30/2019 Telephone Critical Care Petrona Fountain, Gjql-[id number] Call Medicine 05/08/2019 Hospital Encounter Radiology Manoje, [place] Pleural effusion Nia 05/08/2019 Outside Orders Central Scheduling Manoje, Adelaide Pleura l effusion Nia (Primary Dx) 04/23/2019 Travel 04/14/2019 Surgery Fernando Andrews THORACOSCOPY MD Bob (VATS),DECORTIC ATION 04/14/2019 Anesthesia Event Elham Holguin MD 04/11/2019 Anesthesia Event Gastroenterology Quiana Chavez, [employer] 04/11/2019 Surgery Gastroenterology Gabriel Peña UPPER END OSCOPYGARRICK MD 03/20/2019 Orders Only General Internal Medicine 03/19/2019 Hospital Encounter Cardiology Robb, Hypovolem ic shock (HCC) (Primary Dx); - Britton Acute hypercapn ic respiratory failure (HCC); 04/25/2019 MD Johnnie Cerebrovascular accident (CVA), unspecif ied mechanism (HCC); Tomer Lora Acute metaboli c encephalopathy; MD Evelyn Longstanding persistent atrial fibrillat ion; Laya Tabares, Moderate pr otein-calorie malnutrition (HCC); Jerald Whitney, Acute on chr onic diastolic CHF (congestive heart failure), NYHA class 4 (HCC); Atrial fibrillation with RVR (HCC); Jean Marie, Leukocytosis, u nspecified type; Britton Other specified hypotension; MD Irineo Chronic pleural effusion; Areli Hong MD Bilateral pleural effusion; Nalvíctor, Yahaira Acute respirato ry failure with hypoxia and hypercapnia (HCC); MD Sangita Aspiration pneumonia, unspecified aspira tion pneumonia type, unspecified laterality, unspecified part of lung (HCC); Bharti Kamara MD Acute on chronic respiratory failure wit h hypoxia and hypercapnia (HCC); Fernando Andrews Cardiac arrest (HCC); MD Bob Pleural effusio n; Oropharyngeal d ysphagia; Encounter for P EG (percutaneous endoscopic gastrostomy) (HCC); Acute hypoxemic respiratory failure (HCC); Other shock (HC C); Paroxysmal atri al fibrillation (HCC); Acute blood los s anemia; Hypophosphatemi a; Acute pulmonary edema (HCC) 03/18/2019 Telephone Critical Care Robb, transfer Medicine Britton Blair MD 01/22/2019 Travel 01/21/2019 Hospital Encounter General Internal Lynn, Stefania rovascular accident (CVA), unspecified mechanism (HCC) (Primary Dx); - Medicine MD Inna PAF (paroxysmal atrial fibrillation) (HC C); 01/24/2019 Yesenia Hamilton of CABG MD Isabel Mora Alok, MD 01/21/2019 Documentation Internal Medicine Inna Bailey MD after 07/15/2018 Family History Medical History Relation Name Comments Hypertension Father Diabetes Mother Relation Name Status Comments Father Mother Social History Tobacco Use Types Packs/Day Years Used Date Current Every Day Smoker Cigarettes 2 52 Sta rted: 01/21/1967 Smokeless Tobacco: Never Used Tobacco Cessation: Ready to Quit: No; Co unseling Given: Yes Comments: patient not ready to quit smok ing Alcohol Use Drinks/Week oz/Week Comments Yes 28 Cans of beer 16.8 4 cans of beer e very evening Alcohol Habits Answer Date Recorded How often do you have a drink containing 4 or more times a w douglas 01/21/2019 alcohol? How many drinks containing alcohol do you have 3 or 4 01/21/2019 on a typical day when you are drinking? How often do you have six or more drinks on one Not asked occasion? Sex Assigned at Date Recorded Not on file Job Start Date Occupation Industry Not on file Not on file Not on file Travel History Travel Start Travel End No recent travel history available. Last Filed Vital Signs Vital Sign Reading Time Taken Blood Pressure 134/89 06/09/2019 8:05 PM CDT Pulse 90 06/09/2019 8:05 PM CDT Temperature 36.6 C (97.9 F) 06/09/2019 8:00 PM CDT Respiratory Rate 22 06/09/2019 8:00 PM CDT Oxygen Saturation 98% 06/09/2019 8:00 PM CDT Inhaled Oxygen Concentration 21% 06/02/2019 8:10 AM CDT Weight 71.1 kg (156 lb 12 oz) 06/09/2019 6:00 AM CDT Height 175.3 cm (5' 9") 06/02/2019 6:00 AM CDT Body Mass Index 23.15 06/09/2019 6:00 AM CDT Plan of Treatment Health Maintenance Due Date Last Done Comments COLON CANCER SCREENING COLONOSCOPY 1955 PNEUMOCOCCAL VACCINE 2-64 YEARS AT RISK (1 of - 1960 PPSV23) INFLUENZA VACCINE (Season Ended) 2019 Procedures Procedure Name Priority Date/Time Associated Comments Diagnosis RHYTHM STRIP - SCAN 07/02/2019 12:50 PM CDT REPORT OF PROCEDURE - 07/02/2019 12:50 ENDOSCOPY SCAN PM CDT RHYTHM STRIP - SCAN 06/12/2019 2:00 PM CDT RHYTHM STRIP - SCAN 06/12/2019 2:00 PM CDT POCT-GLUCOSE METER Routine 06/09/2019 6:23 Resul ts for PM CDT this procedure are in the results section. POCT-GLUCOSE METER Routine 06/09/2019 12:40 Resul ts for PM CDT this procedure are in the results section. COMPREHENSIVE METABOLIC Routine 06/09/2019 11:30 Results for PANEL AM CDT this procedure are in the results section. POCT-GLUCOSE METER Routine 06/09/2019 5:42 Resul ts for AM CDT this procedure are in the results section. POCT-GLUCOSE METER Routine 06/08/2019 11:32 Resul ts for PM CDT this procedure are in the results section. POCT-GLUCOSE METER Routine 06/08/2019 6:13 Resul ts for PM CDT this procedure are in the results section. POCT-GLUCOSE METER Routine 06/08/2019 5:26 Resul ts for AM CDT this procedure are in the results section. POCT-GLUCOSE METER Routine 06/07/2019 11:19 Resul ts for PM CDT this procedure are in the results section. POCT-GLUCOSE METER Routine 06/07/2019 6:41 Resul ts for PM CDT this procedure are in the results section. POCT-GLUCOSE METER Routine 06/07/2019 5:14 Resul ts for PM CDT this procedure are in the results section. POCT-GLUCOSE METER Routine 06/07/2019 2:17 Resul ts for PM CDT this procedure are in the results section. POCT-GLUCOSE METER Routine 06/07/2019 6:16 Resul ts for AM CDT this procedure are in the results section. POCT-GLUCOSE METER Routine 06/06/2019 11:38 Resul ts for PM CDT this procedure are in the results section. POCT-GLUCOSE METER Routine 06/06/2019 5:48 Resul ts for PM CDT this procedure are in the results section. POCT-GLUCOSE METER Routine 06/06/2019 12:00 Resul ts for PM CDT this procedure are in the results section. POCT-GLUCOSE METER Routine 06/06/2019 5:44 Resul ts for AM CDT this procedure are in the results section. COMPREHENSIVE METABOLIC Routine 06/06/2019 3:50 Results for PANEL AM CDT this procedure are in the results section. POCT-GLUCOSE METER Routine 06/05/2019 11:58 Resul ts for PM CDT this procedure are in the results section. POCT-GLUCOSE METER Routine 06/05/2019 4:45 Resul ts for PM CDT this procedure are in the results section. POTASSIUM Routine 06/05/2019 4:31 Results for PM CDT this procedure are in the results section. POCT-GLUCOSE METER Routine 06/05/2019 12:17 Resul ts for PM CDT this procedure are in the results section. POCT-GLUCOSE METER Routine 06/05/2019 6:01 Resul ts for AM CDT this procedure are in the results section. BASIC METABOLIC PANEL (7) Routine 06/05/2019 6:01 Results for AM CDT this procedure are in the results section. POCT-GLUCOSE METER Routine 06/05/2019 12:03 Resul ts for AM CDT this procedure are in the results section. POCT-GLUCOSE METER Routine 06/04/2019 5:43 Resul ts for PM CDT this procedure are in the results section. XR ESOPH SWALLOW FUNCTION Routine 06/04/2019 2:45 Results for W/CINE VIDEO PM CDT this procedure are in the results section. POCT-GLUCOSE METER Routine 06/04/2019 11:44 Resul ts for AM CDT this procedure are in the results section. POCT-GLUCOSE METER Routine 06/04/2019 6:06 Resul ts for AM CDT this procedure are in the results section. CBC W/PLT COUNT & AUTO Routine 06/04/2019 5:15 R esults for DIFFERENTIAL AM CDT this procedure are in the results section. COMPREHENSIVE METABOLIC Routine 06/04/2019 5:15 Results for PANEL AM CDT this procedure are in the results section. CBC W/PLT COUNT & AUTO Routine 06/04/2019 5:15 R esults for DIFFERENTIAL AM CDT this procedure are in the results section. US ABDOMEN LIMITED Routine 06/04/2019 2:10 Resul ts for AM CDT this procedure are in the results section. POCT-GLUCOSE METER Routine 06/03/2019 11:38 Resul ts for PM CDT this procedure are in the results section. POCT-GLUCOSE METER Routine 06/03/2019 5:47 Resul ts for PM CDT this procedure are in the results section. AMMONIA CHRISSIE 06/03/2019 2:56 Results for PM CDT this procedure are in the results section. POCT-GLUCOSE METER Routine 06/03/2019 12:09 Resul ts for PM CDT this procedure are in the results section. POCT-GLUCOSE METER Routine 06/03/2019 6:21 Resul ts for AM CDT this procedure are in the results section. CBC W/PLT COUNT & AUTO Routine 06/03/2019 5:25 R esults for DIFFERENTIAL AM CDT this procedure are in the results section. MAGNESIUM Routine 06/03/2019 5:25 Results for AM CDT this procedure are in the results section. COMPREHENSIVE METABOLIC Routine 06/03/2019 5:25 Results for PANEL AM CDT this procedure are in the results section. CBC W/PLT COUNT & AUTO Routine 06/03/2019 5:25 R esults for DIFFERENTIAL AM CDT this procedure are in the results section. POCT-GLUCOSE METER Routine 06/03/2019 12:10 Resul ts for AM CDT this procedure are in the results section. POCT-GLUCOSE METER Routine 06/02/2019 5:53 Resul ts for PM CDT this procedure are in the results section. BASIC METABOLIC PANEL (7) Routine 06/02/2019 3:03 Results for PM CDT this procedure are in the results section. POCT-GLUCOSE METER Routine 06/02/2019 12:29 Resul ts for PM CDT this procedure are in the results section. BLOOD GAS, ARTERIAL Routine 06/02/2019 8:15 Resu lts for AM CDT this procedure are in the results section. POCT-GLUCOSE METER Routine 06/02/2019 5:38 Resul ts for AM CDT this procedure are in the results section. CBC W/PLT COUNT & AUTO Routine 06/02/2019 1:24 R esults for DIFFERENTIAL AM CDT this procedure are in the results section. MAGNESIUM STAT Add-on 06/02/2019 1:24 Results for AM CDT this procedure are in the results section. COMPREHENSIVE METABOLIC Routine 06/02/2019 1:24 Results for PANEL AM CDT this procedure are in the results section. CBC W/PLT COUNT & AUTO Routine 06/02/2019 1:24 R esults for DIFFERENTIAL AM CDT this procedure are in the results section. VANCOMYCIN LEVEL, TROUGH Timed 06/02/2019 1:24 Results for AM CDT this procedure are in the results section. POCT-GLUCOSE METER Routine 06/01/2019 11:14 Resul ts for PM CDT this procedure are in the results section. ECHOCARDIOGRAM REPORT - 06/01/2019 9:20 SCAN PM CDT POCT-GLUCOSE METER Routine 06/01/2019 5:49 Resul ts for PM CDT this procedure are in the results section. 2D ECHO W/ DOPPLER Routine 06/01/2019 2:50 Resul ts for (CW/PW/COLOR) PM CDT this procedure are in the results section. POCT-GLUCOSE METER Routine 06/01/2019 11:54 Resul ts for AM CDT this procedure are in the results section. MRSA SCREEN Routine 06/01/2019 10:47 Results for AM CDT this procedure are in the results section. CBC W/PLT COUNT & AUTO Routine 06/01/2019 10:46 R esults for DIFFERENTIAL AM CDT this procedure are in the results section. PHOSPHORUS Routine 06/01/2019 10:46 Results for AM CDT this procedure are in the results section. MAGNESIUM Routine 06/01/2019 10:46 Results for AM CDT this procedure are in the results section. BASIC METABOLIC PANEL (7) Routine 06/01/2019 10:46 Results for AM CDT this procedure are in the results section. CBC W/PLT COUNT & AUTO Routine 06/01/2019 10:46 R esults for DIFFERENTIAL AM CDT this procedure are in the results section. POCT-GLUCOSE METER Routine 06/01/2019 5:37 Resul ts for AM CDT this procedure are in the results section. POCT-GLUCOSE METER Routine 05/31/2019 11:21 Resul ts for PM CDT this procedure are in the results section. POCT-GLUCOSE METER Routine 05/31/2019 5:44 Resul ts for PM CDT this procedure are in the results section. POCT-GLUCOSE METER Routine 05/31/2019 11:21 Resul ts for AM CDT this procedure are in the results section. PROTHROMBIN TIME/INR Routine 05/31/2019 10:31 Res ults for AM CDT this procedure are in the results section. HEPATITIS PANEL, ACUTE Routine 05/31/2019 8:24 R esults for AM CDT this procedure are in the results section. CBC W/PLT COUNT & AUTO Routine 05/31/2019 8:23 R esults for DIFFERENTIAL AM CDT this procedure are in the results section. CBC W/PLT COUNT & AUTO Routine 05/31/2019 8:23 R esults for DIFFERENTIAL AM CDT this procedure are in the results section. B-TYPE NATRIURETIC FACTOR Routine 05/31/2019 8:23 Results for (BNP) AM CDT this procedure are in the results section. COMPREHENSIVE METABOLIC Routine 05/31/2019 8:23 Results for PANEL AM CDT this procedure are in the results section. VANCOMYCIN LEVEL, RANDOM Routine 05/31/2019 8:23 Results for AM CDT this procedure are in the results section. BLOOD CULTURE Routine 05/31/2019 8:22 Results fo r AM CDT this procedure are in the results section. ECG 12-LEAD Routine 05/31/2019 7:21 Results for AM CDT this procedure are in the results section. POCT-GLUCOSE METER Routine 05/31/2019 5:54 Resul ts for AM CDT this procedure are in the results section. CREATININE, RANDOM URINE Routine 05/31/2019 3:26 Results for AM CDT this procedure are in the results section. UREA NITROGEN, RANDOM Routine 05/31/2019 3:26 Re sults for URINE AM CDT this procedure are in the results section. SODIUM, RANDOM URINE Routine 05/31/2019 3:26 Res ults for AM CDT this procedure are in the results section. BLOOD CULTURE Routine 05/31/2019 12:25 Results fo r AM CDT this procedure are in the results section. POCT-GLUCOSE METER Routine 05/30/2019 11:51 Resul ts for PM CDT this procedure are in the results section. XR CHEST 1 VIEW Routine 05/30/2019 9:03 Results for PORTABLE/BEDSIDE PM CDT this proced ure are in the results section. CBC W/PLT COUNT & AUTO Routine 05/30/2019 8:55 R esults for DIFFERENTIAL PM CDT this procedure are in the results section. PROTHROMBIN TIME/INR Routine 05/30/2019 8:55 Res ults for PM CDT this procedure are in the results section. COMPREHENSIVE METABOLIC Routine 05/30/2019 8:55 Results for PANEL PM CDT this procedure are in the results section. CBC W/PLT COUNT & AUTO Routine 05/30/2019 8:55 R esults for DIFFERENTIAL PM CDT this procedure are in the results section. ECG 12-LEAD Routine 05/30/2019 7:25 Results for PM CDT this procedure are in the results section. XR CHEST 2 VIEWS Routine 05/08/2019 12:14 Pleural effusion Res ults for PM CDT this procedure are in the results section. RHYTHM STRIP - SCAN 05/01/2019 5:29 PM [employer] RHYTHM STRIP - SCAN 04/28/2019 3:01 PM [employer] RHYTHM STRIP - SCAN 04/28/2019 3:01 PM [employer] XR CHEST 1 VIEW Routine 04/25/2019 6:45 Results for PORTABLE/BEDSIDE AM [employer] this proced ure are in the results section. CBC W/PLT COUNT & AUTO Routine 04/25/2019 4:52 R esults for DIFFERENTIAL AM [employer] this procedure are in the results section. PHOSPHORUS Routine 04/25/2019 4:52 Results for AM [employer] this procedure are in the results section. MAGNESIUM Routine 04/25/2019 4:52 Results for AM [employer] this procedure are in the results section. CBC W/PLT COUNT & AUTO Routine 04/25/2019 4:52 R esults for DIFFERENTIAL AM [employer] this procedure are in the results section. BASIC METABOLIC PANEL (7) Routine 04/25/2019 4:52 Results for AM [employer] this procedure are in the results section. XR CHEST 1 VIEW Routine 04/24/2019 6:56 Results for PORTABLE/BEDSIDE AM [employer] this proced ure are in the results section. CBC W/PLT COUNT & AUTO Routine 04/24/2019 4:11 R esults for DIFFERENTIAL AM [employer] this procedure are in the results section. PHOSPHORUS Routine 04/24/2019 4:11 Results for AM [employer] this procedure are in the results section. MAGNESIUM Routine 04/24/2019 4:11 Results for AM [employer] this procedure are in the results section. CBC W/PLT COUNT & AUTO Routine 04/24/2019 4:11 R esults for DIFFERENTIAL AM [employer] this procedure are in the results section. BASIC METABOLIC PANEL (7) Routine 04/24/2019 4:11 Results for AM [employer] this procedure are in the results section. XR CHEST 1 VIEW Routine 04/23/2019 1:57 Results for PORTABLE/BEDSIDE PM [employer] this proced ure are in the results section. XR CHEST 1 VIEW Routine 04/23/2019 6:31 Results for PORTABLE/BEDSIDE AM [employer] this proced ure are in the results section. CBC W/PLT COUNT & AUTO Routine 04/23/2019 3:53 R esults for DIFFERENTIAL AM [employer] this procedure are in the results section. PREALBUMIN Routine 04/23/2019 3:53 Results for AM [employer] this procedure are in the results section. PHOSPHORUS Routine 04/23/2019 3:53 Results for AM [employer] this procedure are in the results section. MAGNESIUM Routine 04/23/2019 3:53 Results for AM [employer] this procedure are in the results section. CBC W/PLT COUNT & AUTO Routine 04/23/2019 3:53 R esults for DIFFERENTIAL AM [employer] this procedure are in the results section. BASIC METABOLIC PANEL (7) Routine 04/23/2019 3:53 Results for AM [employer] this procedure are in the results section. XR ESOPH SWALLOW FUNCTION Routine 04/22/2019 2:30 Results for W/CINE VIDEO PM [employer] this procedure are in the results section. XR CHEST 1 VIEW Routine 04/22/2019 5:49 Results for PORTABLE/BEDSIDE AM [employer] this proced ure are in the results section. PHOSPHORUS Routine 04/22/2019 4:02 Results for AM [employer] this procedure are in the results section. MAGNESIUM Routine 04/22/2019 4:02 Results for AM [employer] this procedure are in the results section. BASIC METABOLIC PANEL (7) Routine 04/22/2019 4:02 Results for AM [employer] this procedure are in the results section. CBC W/PLT COUNT & AUTO Routine 04/22/2019 3:23 R esults for DIFFERENTIAL AM [employer] this procedure are in the results section. CBC W/PLT COUNT & AUTO Routine 04/22/2019 3:23 R esults for DIFFERENTIAL AM [employer] this procedure are in the results section. MAGNESIUM Routine 04/21/2019 12:23 Results for PM [employer] this procedure are in the results section. BASIC METABOLIC PANEL (7) Routine 04/21/2019 12:23 Results for PM [employer] this procedure are in the results section. XR CHEST 1 VIEW Routine 04/21/2019 3:59 Results for PORTABLE/BEDSIDE AM [employer] this proced ure are in the results section. PHOSPHORUS Routine 04/21/2019 3:43 Results for AM [employer] this procedure are in the results section. MAGNESIUM Routine 04/21/2019 3:43 Results for AM [employer] this procedure are in the results section. BASIC METABOLIC PANEL (7) Routine 04/21/2019 3:43 Results for AM [employer] this procedure are in the results section. CBC W/PLT COUNT & AUTO Routine 04/21/2019 3:42 R esults for DIFFERENTIAL AM [employer] this procedure are in the results section. CBC W/PLT COUNT & AUTO Routine 04/21/2019 3:42 R esults for DIFFERENTIAL AM [employer] this procedure are in the results section. CBC W/PLT COUNT & AUTO Routine 04/20/2019 3:19 R esults for DIFFERENTIAL PM [employer] this procedure are in the results section. MAGNESIUM Routine 04/20/2019 3:19 Results for PM [employer] this procedure are in the results section. CBC W/PLT COUNT & AUTO Routine 04/20/2019 3:19 R esults for DIFFERENTIAL PM [employer] this procedure are in the results section. PHOSPHORUS Routine 04/20/2019 3:19 Results for PM [employer] this procedure are in the results section. BASIC METABOLIC PANEL (7) Routine 04/20/2019 3:19 Results for PM [employer] this procedure are in the results section. POCT-GLUCOSE METER Routine 04/20/2019 12:17 Resul ts for PM [employer] this procedure are in the results section. XR CHEST 1 VIEW Routine 04/20/2019 5:50 Results for PORTABLE/BEDSIDE AM [employer] this proced ure are in the results section. CBC W/PLT COUNT & AUTO Routine 04/20/2019 3:21 R esults for DIFFERENTIAL AM [employer] this procedure are in the results section. MAGNESIUM Routine 04/20/2019 3:21 Results for AM [employer] this procedure are in the results section. CBC W/PLT COUNT & AUTO Routine 04/20/2019 3:21 R esults for DIFFERENTIAL AM [employer] this procedure are in the results section. PHOSPHORUS Routine 04/20/2019 3:21 Results for AM [employer] this procedure are in the results section. BASIC METABOLIC PANEL (7) Routine 04/20/2019 3:21 Results for AM [employer] this procedure are in the results section. POCT-GLUCOSE METER Routine 04/20/2019 12:07 Resul ts for AM [employer] this procedure are in the results section. TRANSFUSION SERVICE 04/19/2019 6:02 REPORT - SCAN PM [employer] CBC W/PLT COUNT & AUTO Routine 04/19/2019 5:34 R esults for DIFFERENTIAL PM [employer] this procedure are in the results section. MAGNESIUM Routine 04/19/2019 5:34 Results for PM [employer] this procedure are in the results section. CBC W/PLT COUNT & AUTO Routine 04/19/2019 5:34 R esults for DIFFERENTIAL PM [employer] this procedure are in the results section. PHOSPHORUS Routine 04/19/2019 5:34 Results for PM [employer] this procedure are in the results section. BASIC METABOLIC PANEL (7) Routine 04/19/2019 5:34 Results for PM [employer] this procedure are in the results section. XR CHEST 1 VIEW Routine 04/19/2019 5:48 Results for PORTABLE/BEDSIDE AM [employer] this proced ure are in the results section. CBC W/PLT COUNT & AUTO Routine 04/19/2019 3:26 R esults for DIFFERENTIAL AM [employer] this procedure are in the results section. MAGNESIUM Routine 04/19/2019 3:26 Results for AM [employer] this procedure are in the results section. CBC W/PLT COUNT & AUTO Routine 04/19/2019 3:26 R esults for DIFFERENTIAL AM [employer] this procedure are in the results section. PHOSPHORUS Routine 04/19/2019 3:26 Results for AM [employer] this procedure are in the results section. BASIC METABOLIC PANEL (7) Routine 04/19/2019 3:26 Results for AM [employer] this procedure are in the results section. POCT-GLUCOSE METER Routine 04/19/2019 12:23 Resul ts for AM [employer] this procedure are in the results section. PREPARE LEUKO-REDUCED RBC Routine 04/18/2019 11:54 Results for PM [employer] this procedure are in the results section. POCT-GLUCOSE METER Routine 04/18/2019 6:27 Resul ts for PM [employer] this procedure are in the results section. TRANSFUSION SERVICE 04/18/2019 6:02 REPORT - SCAN PM [employer] CBC W/PLT COUNT & AUTO Routine 04/18/2019 6:02 R esults for DIFFERENTIAL PM [employer] this procedure are in the results section. MAGNESIUM Routine 04/18/2019 6:02 Results for PM [employer] this procedure are in the results section. CBC W/PLT COUNT & AUTO Routine 04/18/2019 6:02 R esults for DIFFERENTIAL PM [employer] this procedure are in the results section. PHOSPHORUS Routine 04/18/2019 6:02 Results for PM [employer] this procedure are in the results section. BASIC METABOLIC PANEL (7) Routine 04/18/2019 6:02 Results for PM [employer] this procedure are in the results section. POCT-GLUCOSE METER Routine 04/18/2019 11:46 Resul ts for AM [employer] this procedure are in the results section. POCT-GLUCOSE METER Routine 04/18/2019 5:54 Resul ts for AM [employer] this procedure are in the results section. XR CHEST 1 VIEW Routine 04/18/2019 5:36 Results for PORTABLE/BEDSIDE AM [employer] this proced ure are in the results section. BLOOD GAS, ARTERIAL Routine 04/18/2019 2:37 Resu lts for AM [employer] this procedure are in the results section. CBC W/PLT COUNT & AUTO Routine 04/18/2019 2:36 R esults for DIFFERENTIAL AM [employer] this procedure are in the results section. MAGNESIUM Routine 04/18/2019 2:36 Results for AM [employer] this procedure are in the results section. CBC W/PLT COUNT & AUTO Routine 04/18/2019 2:36 R esults for DIFFERENTIAL AM [employer] this procedure are in the results section. PHOSPHORUS Routine 04/18/2019 2:36 Results for AM [employer] this procedure are in the results section. BASIC METABOLIC PANEL (7) Routine 04/18/2019 2:36 Results for AM [employer] this procedure are in the results section. POCT-GLUCOSE METER Routine 04/18/2019 12:19 Resul ts for AM [employer] this procedure are in the results section. POCT-GLUCOSE METER Routine 04/17/2019 6:30 Resul ts for PM [employer] this procedure are in the results section. TRANSFUSION SERVICE 04/17/2019 5:52 REPORT - SCAN PM [employer] BLOOD GAS, ARTERIAL Routine 04/17/2019 4:17 Resu lts for PM [employer] this procedure are in the results section. CBC W/PLT COUNT & AUTO Routine 04/17/2019 4:16 R esults for DIFFERENTIAL PM [employer] this procedure are in the results section. MAGNESIUM Routine 04/17/2019 4:16 Results for PM [employer] this procedure are in the results section. CBC W/PLT COUNT & AUTO Routine 04/17/2019 4:16 R esults for DIFFERENTIAL PM [employer] this procedure are in the results section. PHOSPHORUS Routine 04/17/2019 4:16 Results for PM [employer] this procedure are in the results section. BASIC METABOLIC PANEL (7) Routine 04/17/2019 4:16 Results for PM [employer] this procedure are in the results section. POCT-GLUCOSE METER Routine 04/17/2019 1:14 Resul ts for PM [employer] this procedure are in the results section. TRANSFUSE LEUKO-REDUCED Routine 04/17/2019 11:41 RED BLOOD CELLS AM [employer] XR CHEST 1 VIEW Routine 04/17/2019 6:07 Results for PORTABLE/BEDSIDE AM [employer] this proced ure are in the results section. POCT-GLUCOSE METER Routine 04/17/2019 5:32 Resul ts for AM [employer] this procedure are in the results section. CBC W/PLT COUNT & AUTO Routine 04/17/2019 3:30 R esults for DIFFERENTIAL AM [employer] this procedure are in the results section. MAGNESIUM Routine 04/17/2019 3:30 Results for AM [employer] this procedure are in the results section. APTT Routine 04/17/2019 3:30 Results for AM [employer] this procedure are in the results section. PROTHROMBIN TIME/INR Routine 04/17/2019 3:30 Res ults for AM [employer] this procedure are in the results section. CBC W/PLT COUNT & AUTO Routine 04/17/2019 3:30 R esults for DIFFERENTIAL AM [employer] this procedure are in the results section. PHOSPHORUS Routine 04/17/2019 3:30 Results for AM [employer] this procedure are in the results section. BASIC METABOLIC PANEL (7) Routine 04/17/2019 3:30 Results for AM [employer] this procedure are in the results section. BLOOD GAS, ARTERIAL Routine 04/17/2019 3:30 Resu lts for AM [employer] this procedure are in the results section. HEMOGLOBIN AND HEMATOCRIT STAT 04/17/2019 12:27 Results for AM [employer] this procedure are in the results section. POCT-GLUCOSE METER Routine 04/17/2019 12:10 Resul ts for AM [employer] this procedure are in the results section. PREPARE LEUKO-REDUCED RBC STAT 04/16/2019 11:54 Results for PM [employer] this procedure are in the results section. PREPARE LEUKO-REDUCED RBC STAT 04/16/2019 11:54 Results for PM [employer] this procedure are in the results section. PREPARE LEUKO-REDUCED RBC STAT 04/16/2019 11:54 Results for PM [employer] this procedure are in the results section. PREPARE PLASMA STAT 04/16/2019 11:54 Results f or PM [employer] this procedure are in the results section. PREPARE CRYOPRECIPITATE Routine 04/16/2019 11:54 Results for PM [employer] this procedure are in the results section. PREPARE LEUKO-REDUCED RBC Routine 04/16/2019 11:54 Results for PM [employer] this procedure are in the results section. PREPARE LEUKO-REDUCED RBC Routine 04/16/2019 11:54 Results for PM [employer] this procedure are in the results section. PERIPHERAL VASCULAR 04/16/2019 9:23 REPORT - SCAN PM [employer] POCT-GLUCOSE METER Routine 04/16/2019 6:48 Resul ts for PM [employer] this procedure are in the results section. TRANSFUSION SERVICE 04/16/2019 5:52 REPORT - SCAN PM [employer] CBC W/PLT COUNT & AUTO Routine 04/16/2019 4:02 R esults for DIFFERENTIAL PM [employer] this procedure are in the results section. BASIC METABOLIC PANEL (7) Routine 04/16/2019 4:02 Results for PM [employer] this procedure are in the results section. CBC W/PLT COUNT & AUTO Routine 04/16/2019 4:02 R esults for DIFFERENTIAL PM [employer] this procedure are in the results section. PHOSPHORUS Routine 04/16/2019 4:02 Results for PM [employer] this procedure are in the results section. BLOOD GAS, ARTERIAL Routine 04/16/2019 4:02 Resu lts for PM [employer] this procedure are in the results section. POCT-GLUCOSE METER Routine 04/16/2019 1:24 Resul ts for PM [employer] this procedure are in the results section. HEMOGLOBIN AND HEMATOCRIT Routine 04/16/2019 9:09 Results for AM [employer] this procedure are in the results section. XR CHEST 1 VIEW Routine 04/16/2019 3:46 Results for PORTABLE/BEDSIDE AM [employer] this proced ure are in the results section. CBC W/PLT COUNT & AUTO Routine 04/16/2019 3:28 R esults for DIFFERENTIAL AM [employer] this procedure are in the results section. CALCIUM, IONIZED STAT 04/16/2019 3:28 Results for AM [employer] this procedure are in the results section. APTT Routine 04/16/2019 3:28 Results for AM [employer] this procedure are in the results section. PROTHROMBIN TIME/INR Routine 04/16/2019 3:28 Res ults for AM [employer] this procedure are in the results section. CBC W/PLT COUNT & AUTO Routine 04/16/2019 3:28 R esults for DIFFERENTIAL AM [employer] this procedure are in the results section. PHOSPHORUS Routine 04/16/2019 3:28 Results for AM [employer] this procedure are in the results section. BASIC METABOLIC PANEL (7) Routine 04/16/2019 3:28 Results for AM [employer] this procedure are in the results section. MAGNESIUM Routine 04/16/2019 3:28 Results for AM [employer] this procedure are in the results section. BLOOD GAS, ARTERIAL Routine 04/16/2019 3:24 Resu lts for AM [employer] this procedure are in the results section. TRANSFUSE LEUKO-REDUCED Routine 04/16/2019 1:54 RED BLOOD CELLS AM [employer] POCT-GLUCOSE METER Routine 04/15/2019 11:14 Resul ts for PM [employer] this procedure are in the results section. CBC W/PLT COUNT & AUTO Routine 04/15/2019 10:51 R esults for DIFFERENTIAL PM [employer] this procedure are in the results section. CBC W/PLT COUNT & AUTO Routine 04/15/2019 10:51 R esults for DIFFERENTIAL PM [employer] this procedure are in the results section. TRANSFUSE LEUKO-REDUCED Routine 04/15/2019 9:45 RED BLOOD CELLS PM [employer] TRANSFUSION SERVICE 04/15/2019 6:08 REPORT - SCAN PM [employer] US GUIDE, VASCULAR ACCESS Routine 04/15/2019 5:48 Hypovolemic shock Results for PM [employer] (HCC) this procedure are in the results section. INSERT NON-TUNNEL CV CATH Routine 04/15/2019 5:48 Hypovolemic shock Results for PM [employer] (HCC) this procedure are in the results section. BLOOD GAS, ARTERIAL Routine 04/15/2019 4:04 Resu lts for PM [employer] this procedure are in the results section. CBC W/PLT COUNT & AUTO Routine 04/15/2019 4:03 R esults for DIFFERENTIAL PM [employer] this procedure are in the results section. CBC W/PLT COUNT & AUTO Routine 04/15/2019 4:03 R esults for DIFFERENTIAL PM [employer] this procedure are in the results section. PHOSPHORUS Routine 04/15/2019 4:03 Results for PM [employer] this procedure are in the results section. BASIC METABOLIC PANEL (7) Routine 04/15/2019 4:03 Results for PM [employer] this procedure are in the results section. TRANSFUSE LEUKO-REDUCED STAT 04/15/2019 2:21 RED BLOOD CELLS PM [employer] XR CHEST 1 VIEW STAT 04/15/2019 2:01 Results for PORTABLE/BEDSIDE PM [employer] this proced ure are in the results section. VENOUS DOPPLER ARM, LEFT CHRISSIE 04/15/2019 11:30 Results for AM [employer] this procedure are in the results section. THROMBOELASTOGRAPH (TEG) STAT 04/15/2019 11:28 Results for AM [employer] this procedure are in the results section. POCT-GLUCOSE METER Routine 04/15/2019 11:22 Resul ts for AM [employer] this procedure are in the results section. TRANSFUSE PLASMA Routine 04/15/2019 11:03 AM [employer] ECG 12-LEAD Routine 04/15/2019 10:36 AM [employer] Procedure Note - Interface, External Ris In - 04/15/2019 10:41 AM [employer] Ventricular Rate 51 BPM Atrial Rate 51 BPM QRS Duration 118 ms Q-T Interval 492 ms QTC Calculation(Bazett) 453 ms P [place] 63 degrees R [place] 23 degrees T [place] 5 degrees Sinus bradycardia Septal infarct , age undeter mined Abnormal ECG When compared with ECG of 12:19, Septal infarct is now Presen t Nonspecific T wave abnormali ty now evident in Lateral leads ECG 12-LEAD STAT 04/15/2019 10:36 AM Results for this [employer] procedure are i n the results section. ECG 12-LEAD Routine 04/15/2019 10:35 AM Results for this [employer] procedure are i n the results section. TRANSFUSE Routine 04/15/2019 9:22 AM CRYOPRECIPITATE [employer] CBC W/PLT COUNT & AUTO STAT 04/15/2019 8:52 AM Results for this DIFFERENTIAL [employer] procedure are i n the results section. CBC W/PLT COUNT & AUTO STAT 04/15/2019 8:52 AM Results for this DIFFERENTIAL [employer] procedure are i n the results section. TRANSFUSE LEUKO-REDUCED Routine 04/15/2019 7:56 AM RED BLOOD CELLS [employer] TRANSFUSE LEUKO-REDUCED Routine 04/15/2019 6:24 AM RED BLOOD CELLS [employer] XR CHEST 1 VIEW Routine 04/15/2019 4:38 AM Resul ts for this PORTABLE/BEDSIDE [employer] procedure a re in the results section. BLOOD GAS, ARTERIAL Routine 04/15/2019 4:07 AM R esults for this [employer] procedure are i n the results section. CBC W/PLT COUNT & AUTO Routine 04/15/2019 4:05 AM Results for this DIFFERENTIAL [employer] procedure are i n the results section. CBC W/PLT COUNT & AUTO Routine 04/15/2019 4:05 AM Results for this DIFFERENTIAL [employer] procedure are i n the results section. CALCIUM, IONIZED Routine 04/15/2019 4:05 AM Resu lts for this [employer] procedure are i n the results section. LACTIC ACID, ARTERIAL Routine 04/15/2019 4:05 AM Results for this [employer] procedure are i n the results section. PHOSPHORUS Routine 04/15/2019 4:05 AM Results for this [employer] procedure are i n the results section. BASIC METABOLIC PANEL Routine 04/15/2019 4:05 AM Results for this (7) [employer] procedure are i n the results section. MAGNESIUM Routine 04/15/2019 4:05 AM Results for this [employer] procedure are i n the results section. TRANSFUSE LEUKO-REDUCED Routine 04/15/2019 3:39 AM RED BLOOD CELLS [employer] TRANSFUSE LEUKO-REDUCED Routine 04/15/2019 2:17 AM RED BLOOD CELLS [employer] FIBRINOGEN Routine 04/15/2019 1:58 AM Results for this [employer] procedure are i n the results section. PT/APTT STAT 04/15/2019 1:58 AM Results for this [employer] procedure are i n the results section. APTT Routine 04/15/2019 1:58 AM Results for this [employer] procedure are i n the results section. PROTHROMBIN TIME/INR Routine 04/15/2019 1:58 AM Results for this [employer] procedure are i n the results section. POCT-GLUCOSE METER Routine 04/15/2019 12:23 AM Re sults for this [employer] procedure are i n the results section. CBC W/PLT COUNT & AUTO Routine 04/15/2019 12:07 AM Results for this DIFFERENTIAL [employer] procedure are i n the results section. CBC W/PLT COUNT & AUTO Routine 04/15/2019 12:07 AM Results for this DIFFERENTIAL [employer] procedure are i n the results section. CORTISOL Routine 04/15/2019 12:07 AM Results for this [employer] procedure are i n the results section. XR CHEST 1 VIEW STAT 04/14/2019 8:32 PM Resul ts for this PORTABLE/BEDSIDE [employer] procedure a re in the results section. BLOOD GAS, ARTERIAL STAT 04/14/2019 8:00 PM R esults for this [employer] procedure are i n the results section. CALCIUM, IONIZED Routine 04/14/2019 7:57 PM Resu lts for this [employer] procedure are i n the results section. PHOSPHORUS Routine 04/14/2019 7:57 PM Results for this [employer] procedure are i n the results section. MAGNESIUM Routine 04/14/2019 7:57 PM Results for this [employer] procedure are i n the results section. AFB CULTURE + SMEAR Routine 04/14/2019 6:48 PM R esults for this (NON-SPUTUM) [employer] procedure are i n the results section. FUNGUS CULTURE + SMEAR Routine 04/14/2019 6:48 PM Results for this [employer] procedure are i n the results section. SPIN/CONCENTRATION Routine 04/14/2019 6:48 PM Re sults for this CHARGE [employer] procedure are i n the results section. BRONCHIAL CULTURE + GRAM Routine 04/14/2019 6:48 PM Results for this STAIN [employer] procedure are i n the results section. HGB/HCT (H&H) - STAT LAB STAT 04/14/2019 5:49 PM Results for this [employer] procedure are i n the results section. GLUCOSE-STAT LAB STAT 04/14/2019 5:49 PM Resu lts for this [employer] procedure are i n the results section. POTASSIUM-STAT LAB STAT 04/14/2019 5:49 PM Re sults for this [employer] procedure are i n the results section. SODIUM NA-STAT LAB STAT 04/14/2019 5:49 PM Re sults for this [employer] procedure are i n the results section. BLOOD GAS, ARTERIAL STAT 04/14/2019 5:49 PM R esults for this [employer] procedure are i n the results section. CALCIUM, IONIZED STAT 04/14/2019 5:49 PM Resu lts for this [employer] procedure are i n the results section. RRL CRITICAL LABS STAT 04/14/2019 5:49 PM Res ults for this (ABG,NA,K,H&H,GLUCOSE) [employer] proce dure are in the results section. SURGICALLY OBTAINED Routine 04/14/2019 5:15 PM R esults for this CULTURE + GRAM STAIN [employer] procedu re are in the results section. FUNGUS CULTURE + SMEAR Routine 04/14/2019 5:15 PM Results for this [employer] procedure are i n the results section. ANAEROBIC CULTURE Routine 04/14/2019 5:15 PM Res ults for this [employer] procedure are i n the results section. AFB CULTURE + SMEAR Routine 04/14/2019 5:15 PM R esults for this (NON-SPUTUM) [employer] procedure are i n the results section. SURGICALLY OBTAINED Routine 04/14/2019 5:10 PM R esults for this CULTURE + GRAM STAIN [employer] procedu re are in the results section. FUNGUS CULTURE + SMEAR Routine 04/14/2019 5:10 PM Results for this [employer] procedure are i n the results section. ANAEROBIC CULTURE Routine 04/14/2019 5:10 PM Res ults for this [employer] procedure are i n the results section. AFB CULTURE + SMEAR Routine 04/14/2019 5:10 PM R esults for this (NON-SPUTUM) [employer] procedure are i n the results section. FUNGUS CULTURE + SMEAR Routine 04/14/2019 5:08 PM Results for this [employer] procedure are i n the results section. SURGICALLY OBTAINED Routine 04/14/2019 5:08 PM R esults for this CULTURE + GRAM STAIN [employer] procedu re are in the results section. ANAEROBIC CULTURE Routine 04/14/2019 5:08 PM Res ults for this [employer] procedure are i n the results section. AFB CULTURE + SMEAR Routine 04/14/2019 5:08 PM R esults for this (NON-SPUTUM) [employer] procedure are i n the results section. SURGICALLY OBTAINED Routine 04/14/2019 5:00 PM R esults for this CULTURE + GRAM STAIN [employer] procedu re are in the results section. FUNGUS CULTURE + SMEAR Routine 04/14/2019 5:00 PM Results for this [employer] procedure are i n the results section. ANAEROBIC CULTURE Routine 04/14/2019 5:00 PM Res ults for this [employer] procedure are i n the results section. AFB CULTURE + SMEAR Routine 04/14/2019 5:00 PM R esults for this (NON-SPUTUM) [employer] procedure are i n the results section. TISSUE EXAM AP Routine 04/14/2019 4:54 PM Results for this [employer] procedure are i n the results section. HGB/HCT (H&H) - STAT LAB STAT 04/14/2019 4:30 PM Results for this [employer] procedure are i n the results section. GLUCOSE-STAT LAB STAT 04/14/2019 4:30 PM Resu lts for this [employer] procedure are i n the results section. POTASSIUM-STAT LAB STAT 04/14/2019 4:30 PM Re sults for this [employer] procedure are i n the results section. SODIUM NA-STAT LAB STAT 04/14/2019 4:30 PM Re sults for this [employer] procedure are i n the results section. BLOOD GAS, ARTERIAL STAT 04/14/2019 4:30 PM R esults for this [employer] procedure are i n the results section. CALCIUM, IONIZED STAT 04/14/2019 4:30 PM Resu lts for this [employer] procedure are i n the results section. RRL CRITICAL LABS STAT 04/14/2019 4:30 PM Res ults for this (ABG,NA,K,H&H,GLUCOSE) [employer] proce dure are in the results section. CYTOLOGY AP Routine 04/14/2019 3:48 PM Results for this [employer] procedure are i n the results section. ANAEROBIC CULTURE Routine 04/14/2019 3:41 PM Res ults for this [employer] procedure are i n the results section. FUNGUS CULTURE + SMEAR Routine 04/14/2019 3:41 PM Results for this [employer] procedure are i n the results section. AFB CULTURE + SMEAR Routine 04/14/2019 3:41 PM R esults for this (NON-SPUTUM) [employer] procedure are i n the results section. SURGICALLY OBTAINED Routine 04/14/2019 3:41 PM R esults for this CULTURE + GRAM STAIN [employer] procedu re are in the results section. HGB/HCT (H&H) - STAT LAB STAT 04/14/2019 3:24 PM Results for this [employer] procedure are i n the results section. GLUCOSE-STAT LAB STAT 04/14/2019 3:24 PM Resu lts for this [employer] procedure are i n the results section. POTASSIUM-STAT LAB STAT 04/14/2019 3:24 PM Re sults for this [employer] procedure are i n the results section. SODIUM NA-STAT LAB STAT 04/14/2019 3:24 PM Re sults for this [employer] procedure are i n the results section. BLOOD GAS, ARTERIAL STAT 04/14/2019 3:24 PM R esults for this [employer] procedure are i n the results section. CALCIUM, IONIZED STAT 04/14/2019 3:24 PM Resu lts for this [employer] procedure are i n the results section. RRL CRITICAL LABS STAT 04/14/2019 3:24 PM Res ults for this (ABG,NA,K,H&H,GLUCOSE) [employer] proce dure are in the results section. BRONCHOSCOPY 04/14/2019 1:25 PM Empyema, right [employer] (HCC) THORACOSCOPY 04/14/2019 1:25 PM Empyema, right (VATS),DECORTICATION [employer] (HCC) ECG 12-LEAD Routine 04/14/2019 12:19 PM [employer] Procedure Note - Interface, External Ris In - 04/14/2019 12:20 PM [employer] Ventricular Rate 45 BPM Atrial Rate 45 BPM P-R Interval 178 ms QRS Duration 118 ms Q-T Interval 542 ms QTC Calculation(Bazett) 468 ms P [place] 67 degrees R [place] 20 degrees T [place] -1 degrees Sinus bradycardia Left ventricular hypertrophy with QRS widening Nonspecific ST abnormality Abnormal ECG When compared with ECG of 08:09, Sinus rhythm has replaced At rial fibrillation Vent. rate has decreased BY [address] now depressed in Anterior leads T wave inversion now evident in Inferior leads Nonspecific T wave abnormali ty no longer evident in Lateral leads ECG 12-LEAD STAT 04/14/2019 12:19 Results for this PM [employer] procedure are i n the results section. XR CHEST 1 VIEW Routine 04/14/2019 10:05 Results for this PORTABLE/BEDSIDE AM [employer] procedure a re in the results section. CBC W/PLT COUNT & AUTO Routine 04/14/2019 1:01 R esults for this DIFFERENTIAL AM [employer] procedure are i n the results section. TYPE AND SCREEN, Routine 04/14/2019 1:01 Results for this AUTOMATED AM [employer] procedure are i n the results section. COMPREHENSIVE Add-On 04/14/2019 1:01 Results fo r this METABOLIC PANEL AM [employer] procedure ar e in the results section. PROTHROMBIN TIME/INR Routine 04/14/2019 1:01 Res ults for this AM [employer] procedure are i n the results section. BASIC METABOLIC PANEL Routine 04/14/2019 1:01 Re sults for this (7) AM [employer] procedure are i n the results section. PHOSPHORUS Routine 04/14/2019 1:01 Results for this AM [employer] procedure are i n the results section. MAGNESIUM Routine 04/14/2019 1:01 Results for this AM [employer] procedure are i n the results section. CBC W/PLT COUNT & AUTO Routine 04/14/2019 1:01 R esults for this DIFFERENTIAL AM [employer] procedure are i n the results section. POCT-GLUCOSE METER Routine 04/13/2019 7:57 Resul ts for this PM [employer] procedure are i n the results section. POCT-GLUCOSE METER Routine 04/13/2019 5:17 Resul ts for this PM [employer] procedure are i n the results section. POCT-GLUCOSE METER Routine 04/13/2019 11:52 Resul ts for this AM [employer] procedure are i n the results section. XR CHEST 1 VIEW Routine 04/13/2019 8:26 Results for this PORTABLE/BEDSIDE AM [employer] procedure a re in the results section. POCT-GLUCOSE METER Routine 04/13/2019 5:58 Resul ts for this AM [employer] procedure are i n the results section. CBC W/PLT COUNT & AUTO Routine 04/13/2019 4:50 R esults for this DIFFERENTIAL AM [employer] procedure are i n the results section. CBC W/PLT COUNT & AUTO Routine 04/13/2019 4:50 R esults for this DIFFERENTIAL AM [employer] procedure are i n the results section. HEPATIC FUNCTION PANEL Routine 04/13/2019 4:39 R esults for this AM [employer] procedure are i n the results section. BASIC METABOLIC PANEL Routine 04/13/2019 4:39 Re sults for this (7) AM [employer] procedure are i n the results section. PHOSPHORUS Routine 04/13/2019 4:39 Results for this AM [employer] procedure are i n the results section. MAGNESIUM Routine 04/13/2019 4:39 Results for this AM [employer] procedure are i n the results section. APTT Routine 04/13/2019 4:29 Results for this AM [employer] procedure are i n the results section. POCT-GLUCOSE METER Routine 04/12/2019 5:20 Resul ts for this PM [employer] procedure are i n the results section. POCT-GLUCOSE METER Routine 04/12/2019 12:05 Resul ts for this PM [employer] procedure are i n the results section. XR CHEST 1 VIEW Routine 04/12/2019 6:43 Results for this PORTABLE/BEDSIDE AM [employer] procedure a re in the results section. POCT-GLUCOSE METER Routine 04/12/2019 5:21 Resul ts for this AM [employer] procedure are i n the results section. CBC W/PLT COUNT & AUTO Routine 04/12/2019 5:17 R esults for this DIFFERENTIAL AM [employer] procedure are i n the results section. BASIC METABOLIC PANEL Routine 04/12/2019 5:17 Re sults for this (7) AM [employer] procedure are i n the results section. PHOSPHORUS Routine 04/12/2019 5:17 Results for this AM [employer] procedure are i n the results section. MAGNESIUM Routine 04/12/2019 5:17 Results for this AM [employer] procedure are i n the results section. CBC W/PLT COUNT & AUTO Routine 04/12/2019 5:17 R esults for this DIFFERENTIAL AM [employer] procedure are i n the results section. POCT-GLUCOSE METER Routine 04/12/2019 12:04 Resul ts for this AM [employer] procedure are i n the results section. POCT-GLUCOSE METER Routine 04/11/2019 5:35 Resul ts for this PM [employer] procedure are i n the results section. XR CHEST 1 VIEW Routine 04/11/2019 1:04 Results for this PORTABLE/BEDSIDE PM [employer] procedure a re in the results section. POCT-GLUCOSE METER Routine 04/11/2019 12:09 Resul ts for this PM [employer] procedure are i n the results section. POCT-GLUCOSE METER Routine 04/11/2019 10:39 Resul ts for this AM [employer] procedure are i n the results section. REPORT OF PROCEDURE - 04/11/2019 10:15 ENDOSCOPY URL AM [employer] UPPER ENDOSCOPY,PEG 04/11/2019 9:00 Dysphagia, AM [employer] unspecified type POCT-GLUCOSE METER Routine 04/11/2019 7:01 Resul ts for this AM [employer] procedure are i n the results section. CBC W/PLT COUNT & AUTO Routine 04/11/2019 5:28 R esults for this DIFFERENTIAL AM [employer] procedure are i n the results section. PROTHROMBIN TIME/INR Routine 04/11/2019 5:28 Res ults for this AM [employer] procedure are i n the results section. BASIC METABOLIC PANEL Routine 04/11/2019 5:28 Re sults for this (7) AM [employer] procedure are i n the results section. PHOSPHORUS Routine 04/11/2019 5:28 Results for this AM [employer] procedure are i n the results section. MAGNESIUM Routine 04/11/2019 5:28 Results for this AM [employer] procedure are i n the results section. CBC W/PLT COUNT & AUTO Routine 04/11/2019 5:28 R esults for this DIFFERENTIAL AM [employer] procedure are i n the results section. POCT-GLUCOSE METER Routine 04/11/2019 12:16 Resul ts for this AM [employer] procedure are i n the results section. POCT-GLUCOSE METER Routine 04/10/2019 2:51 Resul ts for this PM [employer] procedure are i n the results section. XR CHEST 1 VIEW Routine 04/10/2019 9:16 Results for this PORTABLE/BEDSIDE AM [employer] procedure a re in the results section. CBC W/PLT COUNT & AUTO Routine 04/10/2019 4:41 R esults for this DIFFERENTIAL AM [employer] procedure are i n the results section. BASIC METABOLIC PANEL Routine 04/10/2019 4:41 Re sults for this (7) AM [employer] procedure are i n the results section. PHOSPHORUS Routine 04/10/2019 4:41 Results for this AM [employer] procedure are i n the results section. MAGNESIUM Routine 04/10/2019 4:41 Results for this AM [employer] procedure are i n the results section. CBC W/PLT COUNT & AUTO Routine 04/10/2019 4:41 R esults for this DIFFERENTIAL AM [employer] procedure are i n the results section. POCT-GLUCOSE METER Routine 04/10/2019 12:37 Resul ts for this AM [employer] procedure are i n the results section. POCT-GLUCOSE METER Routine 04/09/2019 5:19 Resul ts for this PM [employer] procedure are i n the results section. XR ESOPH SWALLOW Routine 04/09/2019 1:56 Results for this FUNCTION W/CINE VIDEO PM [employer] proced ure are in the results section. BODY FLUID CULTURE + CHRISSIE 04/09/2019 12:10 Res ults for this GRAM STAIN PM [employer] procedure are i n the results section. POCT-GLUCOSE METER Routine 04/09/2019 11:47 Resul ts for this AM [employer] procedure are i n the results section. POCT-GLUCOSE METER Routine 04/09/2019 9:21 Resul ts for this AM [employer] procedure are i n the results section. XR CHEST 1 VIEW Routine 04/09/2019 6:51 Results for this PORTABLE/BEDSIDE AM [employer] procedure a re in the results section. POCT-GLUCOSE METER Routine 04/09/2019 6:16 Resul ts for this AM [employer] procedure are i n the results section. CBC W/PLT COUNT & AUTO Routine 04/09/2019 5:32 R esults for this DIFFERENTIAL AM [employer] procedure are i n the results section. BASIC METABOLIC PANEL Routine 04/09/2019 5:32 Re sults for this (7) AM [employer] procedure are i n the results section. PHOSPHORUS Routine 04/09/2019 5:32 Results for this AM [employer] procedure are i n the results section. MAGNESIUM Routine 04/09/2019 5:32 Results for this AM [employer] procedure are i n the results section. CBC W/PLT COUNT & AUTO Routine 04/09/2019 5:32 R esults for this DIFFERENTIAL AM [employer] procedure are i n the results section. POCT-GLUCOSE METER Routine 04/09/2019 1:56 Resul ts for this AM [employer] procedure are i n the results section. POCT-GLUCOSE METER Routine 04/08/2019 5:45 Resul ts for this PM [employer] procedure are i n the results section. POCT-GLUCOSE METER Routine 04/08/2019 12:36 Resul ts for this PM [employer] procedure are i n the results section. XR CHEST 1 VIEW Routine 04/08/2019 6:25 Results for this PORTABLE/BEDSIDE AM [employer] procedure a re in the results section. POCT-GLUCOSE METER Routine 04/08/2019 5:17 Resul ts for this AM [employer] procedure are i n the results section. CBC W/PLT COUNT & AUTO Routine 04/08/2019 4:12 R esults for this DIFFERENTIAL AM [employer] procedure are i n the results section. BASIC METABOLIC PANEL Routine 04/08/2019 4:12 Re sults for this (7) AM [employer] procedure are i n the results section. PHOSPHORUS Routine 04/08/2019 4:12 Results for this AM [employer] procedure are i n the results section. MAGNESIUM Routine 04/08/2019 4:12 Results for this AM [employer] procedure are i n the results section. CBC W/PLT COUNT & AUTO Routine 04/08/2019 4:12 R esults for this DIFFERENTIAL AM [employer] procedure are i n the results section. POCT-GLUCOSE METER Routine 04/08/2019 12:22 Resul ts for this AM [employer] procedure are i n the results section. BASIC METABOLIC PANEL Routine 04/07/2019 6:08 Re sults for this (7) PM [employer] procedure are i n the results section. POCT-GLUCOSE METER Routine 04/07/2019 5:36 Resul ts for this PM [employer] procedure are i n the results section. POCT-GLUCOSE METER Routine 04/07/2019 11:35 Resul ts for this AM [employer] procedure are i n the results section. XR CHEST 1 VIEW STAT 04/07/2019 11:21 Results for this PORTABLE/BEDSIDE AM [employer] procedure a re in the results section. XR CHEST 1 VIEW Routine 04/07/2019 9:52 Results for this PORTABLE/BEDSIDE AM [employer] procedure a re in the results section. POCT-GLUCOSE METER Routine 04/07/2019 6:38 Resul ts for this AM [employer] procedure are i n the results section. CBC W/PLT COUNT & AUTO Routine 04/07/2019 6:07 R esults for this DIFFERENTIAL AM [employer] procedure are i n the results section. BASIC METABOLIC PANEL Routine 04/07/2019 6:07 Re sults for this (7) AM [employer] procedure are i n the results section. PHOSPHORUS Routine 04/07/2019 6:07 Results for this AM [employer] procedure are i n the results section. MAGNESIUM Routine 04/07/2019 6:07 Results for this AM [employer] procedure are i n the results section. CBC W/PLT COUNT & AUTO Routine 04/07/2019 6:07 R esults for this DIFFERENTIAL AM [employer] procedure are i n the results section. POCT-GLUCOSE METER Routine 04/06/2019 11:48 Resul ts for this PM [employer] procedure are i n the results section. POCT-GLUCOSE METER Routine 04/06/2019 5:17 Resul ts for this PM [employer] procedure are i n the results section. BASIC METABOLIC PANEL Routine 04/06/2019 4:40 Re sults for this (7) PM [employer] procedure are i n the results section. POCT-GLUCOSE METER Routine 04/06/2019 12:37 Resul ts for this PM [employer] procedure are i n the results section. XR CHEST 1 VIEW Routine 04/06/2019 6:49 Results for this PORTABLE/BEDSIDE AM [employer] procedure a re in the results section. CBC W/PLT COUNT & AUTO Routine 04/06/2019 6:33 R esults for this DIFFERENTIAL AM [employer] procedure are i n the results section. BASIC METABOLIC PANEL Routine 04/06/2019 6:33 Re sults for this (7) AM [employer] procedure are i n the results section. PHOSPHORUS Routine 04/06/2019 6:33 Results for this AM [employer] procedure are i n the results section. MAGNESIUM Routine 04/06/2019 6:33 Results for this AM [employer] procedure are i n the results section. CBC W/PLT COUNT & AUTO Routine 04/06/2019 6:33 R esults for this DIFFERENTIAL AM [employer] procedure are i n the results section. POCT-GLUCOSE METER Routine 04/06/2019 5:15 Resul ts for this AM [employer] procedure are i n the results section. BASIC METABOLIC PANEL Routine 04/05/2019 4:43 Re sults for this (7) PM [employer] procedure are i n the results section. POCT-GLUCOSE METER Routine 04/05/2019 11:21 Resul ts for this AM [employer] procedure are i n the results section. CBC W/PLT COUNT & AUTO Routine 04/05/2019 4:50 R esults for this DIFFERENTIAL AM [employer] procedure are i n the results section. BASIC METABOLIC PANEL Routine 04/05/2019 4:50 Re sults for this (7) AM [employer] procedure are i n the results section. PHOSPHORUS Routine 04/05/2019 4:50 Results for this AM [employer] procedure are i n the results section. MAGNESIUM Routine 04/05/2019 4:50 Results for this AM [employer] procedure are i n the results section. CBC W/PLT COUNT & AUTO Routine 04/05/2019 4:50 R esults for this DIFFERENTIAL AM [employer] procedure are i n the results section. XR CHEST 1 VIEW Routine 04/05/2019 1:58 Results for this PORTABLE/BEDSIDE AM [employer] procedure a re in the results section. POCT-GLUCOSE METER Routine 04/04/2019 11:42 Resul ts for this PM [employer] procedure are i n the results section. POCT-GLUCOSE METER Routine 04/04/2019 5:43 Resul ts for this PM [employer] procedure are i n the results section. BASIC METABOLIC PANEL Routine 04/04/2019 4:28 Re sults for this (7) PM [employer] procedure are i n the results section. XR ABDOMEN / KUB 1 STAT 04/04/2019 3:58 Resul ts for this VIEW PM [employer] procedure are i n the results section. XR ABDOMEN / KUB 1 STAT 04/04/2019 3:39 Resul ts for this VIEW PM [employer] procedure are i n the results section. POCT-GLUCOSE METER Routine 04/04/2019 12:09 Resul ts for this PM [employer] procedure are i n the results section. XR CHEST 1 VIEW STAT 04/04/2019 8:30 Results for this PORTABLE/BEDSIDE AM [employer] procedure a re in the results section. POCT-GLUCOSE METER Routine 04/04/2019 5:29 Resul ts for this AM [employer] procedure are i n the results section. CBC W/PLT COUNT & AUTO Routine 04/04/2019 4:42 R esults for this DIFFERENTIAL AM [employer] procedure are i n the results section. BASIC METABOLIC PANEL Routine 04/04/2019 4:42 Re sults for this (7) AM [employer] procedure are i n the results section. PHOSPHORUS Routine 04/04/2019 4:42 Results for this AM [employer] procedure are i n the results section. MAGNESIUM Routine 04/04/2019 4:42 Results for this AM [employer] procedure are i n the results section. CBC W/PLT COUNT & AUTO Routine 04/04/2019 4:42 R esults for this DIFFERENTIAL AM [employer] procedure are i n the results section. POCT-GLUCOSE METER Routine 04/03/2019 11:54 Resul ts for this PM [employer] procedure are i n the results section. POCT-GLUCOSE METER Routine 04/03/2019 5:02 Resul ts for this PM [employer] procedure are i n the results section. MAGNESIUM Add-On 04/03/2019 3:27 Results for this PM [employer] procedure are i n the results section. BASIC METABOLIC PANEL Routine 04/03/2019 3:27 Re sults for this (7) PM [employer] procedure are i n the results section. POCT-GLUCOSE METER Routine 04/03/2019 12:07 Resul ts for this PM [employer] procedure are i n the results section. POCT-GLUCOSE METER Routine 04/03/2019 5:53 Resul ts for this AM [employer] procedure are i n the results section. XR CHEST 1 VIEW CHRSISIE 04/03/2019 5:14 Results for this PORTABLE/BEDSIDE AM [employer] procedure a re in the results section. CBC W/PLT COUNT & AUTO Routine 04/03/2019 2:13 R esults for this DIFFERENTIAL AM [employer] procedure are i n the results section. BASIC METABOLIC PANEL Routine 04/03/2019 2:13 Re sults for this (7) AM [employer] procedure are i n the results section. PHOSPHORUS Routine 04/03/2019 2:13 Results for this AM [employer] procedure are i n the results section. MAGNESIUM Routine 04/03/2019 2:13 Results for this AM [employer] procedure are i n the results section. CBC W/PLT COUNT & AUTO Routine 04/03/2019 2:13 R esults for this DIFFERENTIAL AM [employer] procedure are i n the results section. POCT-GLUCOSE METER Routine 04/02/2019 11:54 Resul ts for this PM [employer] procedure are i n the results section. APTT Routine 04/02/2019 10:44 Results for this PM [employer] procedure are i n the results section. POCT-GLUCOSE METER Routine 04/02/2019 5:26 Resul ts for this PM [employer] procedure are i n the results section. APTT Routine 04/02/2019 4:42 Results for this PM [employer] procedure are i n the results section. BASIC METABOLIC PANEL Routine 04/02/2019 4:42 Re sults for this (7) PM [employer] procedure are i n the results section. POCT-GLUCOSE METER Routine 04/02/2019 12:20 Resul ts for this PM [employer] procedure are i n the results section. APTT Routine 04/02/2019 8:12 Results for this AM [employer] procedure are i n the results section. XR CHEST 1 VIEW Routine 04/02/2019 6:02 Results for this PORTABLE/BEDSIDE AM [employer] procedure a re in the results section. POCT-GLUCOSE METER Routine 04/02/2019 5:34 Resul ts for this AM [employer] procedure are i n the results section. APTT Routine 04/02/2019 1:20 Results for this AM [employer] procedure are i n the results section. BLOOD GAS, ARTERIAL Routine 04/02/2019 1:19 Resu lts for this AM [employer] procedure are i n the results section. CBC W/PLT COUNT & AUTO Routine 04/02/2019 1:18 R esults for this DIFFERENTIAL AM [employer] procedure are i n the results section. BASIC METABOLIC PANEL Routine 04/02/2019 1:18 Re sults for this (7) AM [employer] procedure are i n the results section. PHOSPHORUS Routine 04/02/2019 1:18 Results for this AM [employer] procedure are i n the results section. MAGNESIUM Routine 04/02/2019 1:18 Results for this AM [employer] procedure are i n the results section. CBC W/PLT COUNT & AUTO Routine 04/02/2019 1:18 R esults for this DIFFERENTIAL AM [employer] procedure are i n the results section. POCT-GLUCOSE METER Routine 04/01/2019 11:48 Resul ts for this PM [employer] procedure are i n the results section. BASIC METABOLIC PANEL Routine 04/01/2019 7:06 Re sults for this (7) PM [employer] procedure are i n the results section. APTT Routine 04/01/2019 6:47 Results for this PM [employer] procedure are i n the results section. POCT-GLUCOSE METER Routine 04/01/2019 5:51 Resul ts for this PM [employer] procedure are i n the results section. POCT-GLUCOSE METER Routine 04/01/2019 11:41 Resul ts for this AM [employer] procedure are i n the results section. APTT Routine 04/01/2019 11:07 Results for this AM [employer] procedure are i n the results section. POCT-GLUCOSE METER Routine 04/01/2019 6:26 Resul ts for this AM [employer] procedure are i n the results section. XR CHEST 1 VIEW Routine 04/01/2019 5:07 Results for this PORTABLE/BEDSIDE AM [employer] procedure a re in the results section. BLOOD GAS, ARTERIAL Routine 04/01/2019 3:25 Resu lts for this AM [employer] procedure are i n the results section. CBC W/PLT COUNT & AUTO Routine 04/01/2019 3:23 R esults for this DIFFERENTIAL AM [employer] procedure are i n the results section. APTT Routine 04/01/2019 3:23 Results for this AM [employer] procedure are i n the results section. BASIC METABOLIC PANEL Routine 04/01/2019 3:23 Re sults for this (7) AM [employer] procedure are i n the results section. PHOSPHORUS Routine 04/01/2019 3:23 Results for this AM [employer] procedure are i n the results section. MAGNESIUM Routine 04/01/2019 3:23 Results for this AM [employer] procedure are i n the results section. CBC W/PLT COUNT & AUTO Routine 04/01/2019 3:23 R esults for this DIFFERENTIAL AM [employer] procedure are i n the results section. POCT-GLUCOSE METER Routine 03/31/2019 11:51 Resul ts for this PM [employer] procedure are i n the results section. APTT Routine 03/31/2019 10:13 Results for this PM [employer] procedure are i n the results section. APTT Routine 03/31/2019 7:52 Results for this PM [employer] procedure are i n the results section. POCT-GLUCOSE METER Routine 03/31/2019 6:08 Resul ts for this PM [employer] procedure are i n the results section. APTT Routine 03/31/2019 1:59 Results for this PM [employer] procedure are i n the results section. BASIC METABOLIC PANEL Routine 03/31/2019 1:59 Re sults for this (7) PM [employer] procedure are i n the results section. LACTIC ACID, VENOUS Routine 03/31/2019 1:59 Resu lts for this PM [employer] procedure are i n the results section. PHOSPHORUS STAT 03/31/2019 1:59 Results for this PM [employer] procedure are i n the results section. MAGNESIUM STAT 03/31/2019 1:59 Results for this PM [employer] procedure are i n the results section. PT/APTT STAT 03/31/2019 1:59 Results for this PM [employer] procedure are i n the results section. COMPREHENSIVE STAT 03/31/2019 1:59 Results fo r this METABOLIC PANEL PM [employer] procedure ar e in the results section. TROPONIN I STAT 03/31/2019 1:59 Results for this PM [facility] [employer]ISH[employer] procedure are i n the results section. POCT-GLUCOSE METER Routine 03/31/2019 11:50 Resul ts for this AM [employer] [employer] procedure are i n the results section. XR ABDOMEN / KUB 1 STAT 03/31/2019 11:33 Resul ts for this VIEW [employer] [employer] procedure are i n the results section. TROPONIN I Routine 03/31/2019 9:12 Results for this [employer] procedure are i n the results section. APTT Routine 03/31/2019 6:42 Results for this [employer] procedure are i n the results section. BLOOD GAS, ARTERIAL Routine 03/31/2019 6:42 Resu lts for this [employer] procedure are i n the results section. POCT-GLUCOSE METER Routine 03/31/2019 5:40 Resul ts for this [employer] procedure are i n the results section. XR CHEST 1 VIEW Routine 03/31/2019 5:29 Results for this PORTABLE/BEDSIDE [employer] [employer] procedure a re in the results section. APTT Routine 03/31/2019 4:20 Results for this [employer] procedure are i n the results section. BLOOD GAS, ARTERIAL Routine 03/31/2019 3:52 Resu lts for this [employer] procedure are i n the results section. CBC W/PLT COUNT & AUTO Routine 03/31/2019 3:51 R esults for this DIFFERENTIAL [employer] procedure are i n the results section. BASIC METABOLIC PANEL Routine 03/31/2019 3:51 Re sults for this (7) [employer] procedure are i n the results section. PHOSPHORUS Routine 03/31/2019 3:51 Results for this [employer] procedure are i n the results section. MAGNESIUM Routine 03/31/2019 3:51 Results for this [employer] procedure are i n the results section. CBC W/PLT COUNT & AUTO Routine 03/31/2019 3:51 R esults for this DIFFERENTIAL [employer] procedure are i n the results section. LACTIC ACID, VENOUS STAT 03/31/2019 3:51 Resu lts for this [employer] procedure are i n the results section. TROPONIN I Routine 03/31/2019 1:30 Results for this [employer] procedure are i n the results section. LACTIC ACID, VENOUS Routine 03/31/2019 1:30 Resu lts for this [employer] procedure are i n the results section. B-TYPE NATRIURETIC STAT 03/31/2019 1:30 Resul ts for this FACTOR (BNP) [employer] [facility] [employer] procedure are i n the results section. POCT-GLUCOSE METER Routine 03/31/2019 12:17 Resul ts for this [employer] procedure are i n the results section. CT BRAIN WITHOUT IV Routine 03/30/2019 11:54 Resu lts for this CONTRAST [facility] [employer] [employer] procedure are i n the results section. CT CHEST PE TEST Routine 03/30/2019 11:54 Results for this DESIGN [employer] [employer] procedure are i n the results section. POCT-HEMOGLOBIN Routine 03/30/2019 8:53 Results for this [employer] procedure are i n the results section. POCT-HEMATOCRIT Routine 03/30/2019 8:53 Results for this [employer] procedure are i n the results section. POCT-CALCIUM IONIZED Routine 03/30/2019 8:53 Res ults for this [employer] procedure are i n the results section. POCT-GLUCOSE Routine 03/30/2019 8:53 Results for this [employer] procedure are i n the results section. POCT-POTASSIUM Routine 03/30/2019 8:53 Results f or this [employer] procedure are i n the results section. POCT-SODIUM Routine 03/30/2019 8:53 Results for this [employer] procedure are i n the results section. POCT-BLOOD GASES, Routine 03/30/2019 8:53 Result s for this ARTERIAL [employer] [employer] procedure are i n the results section. CBC W/PLT COUNT & AUTO STAT 03/30/2019 8:44 R esults for this DIFFERENTIAL [employer] procedure are i n the results section. LACTIC ACID, VENOUS Routine 03/30/2019 8:44 Resu lts for this [employer] procedure are i n the results section. PHOSPHORUS STAT 03/30/2019 8:44 Results for this [employer] procedure are i n the results section. MAGNESIUM STAT 03/30/2019 8:44 Results for this [employer] procedure are i n the results section. TROPONIN I STAT 03/30/2019 8:44 Results for this [employer] procedure are i n the results section. COMPREHENSIVE STAT 03/30/2019 8:44 Results fo r this METABOLIC PANEL [employer] procedure ar e in the results section. CBC W/PLT COUNT & AUTO STAT 03/30/2019 8:44 R esults for this DIFFERENTIAL [employer] procedure are i n the results section. XR CHEST 1 VIEW STAT 03/30/2019 8:34 Results for this PORTABLE/BEDSIDE [employer] procedure a re in the results section. APTT Routine 03/30/2019 5:57 Results for this [employer] procedure are i n the results section. POCT-GLUCOSE METER Routine 03/30/2019 5:54 Resul ts for this [employer] procedure are i n the results section. BASIC METABOLIC PANEL Routine 03/30/2019 3:46 Re sults for this (7) [employer] procedure are i n the results section. APTT Routine 03/30/2019 12:08 Results for this [employer] procedure are i n the results section. POCT-GLUCOSE METER Routine 03/30/2019 11:49 Resul ts for this [employer] procedure are i n the results section. XR CHEST 1 VIEW Routine 03/30/2019 7:47 Results for this PORTABLE/BEDSIDE [employer] [employer] procedure a re in the results section. APTT Routine 03/30/2019 6:32 Results for this [employer] procedure are i n the results section. POCT-GLUCOSE METER Routine 03/30/2019 5:55 Resul ts for this [employer] procedure are i n the results section. CBC W/PLT COUNT & AUTO Routine 03/30/2019 4:31 R esults for this DIFFERENTIAL [employer] procedure are i n the results section. APTT Routine 03/30/2019 4:31 Results for this [employer] procedure are i n the results section. BASIC METABOLIC PANEL Routine 03/30/2019 4:31 Re sults for this (7) [employer] procedure are i n the results section. PHOSPHORUS Routine 03/30/2019 4:31 Results for this [employer] procedure are i n the results section. MAGNESIUM Routine 03/30/2019 4:31 Results for this [employer] procedure are i n the results section. CBC W/PLT COUNT & AUTO Routine 03/30/2019 4:31 R esults for this DIFFERENTIAL [employer] procedure are i n the results section. POCT-GLUCOSE METER Routine 03/30/2019 12:16 Resul ts for this [employer] procedure are i n the results section. POCT-GLUCOSE METER Routine 03/29/2019 6:14 Resul ts for this [employer] procedure are i n the results section. BASIC METABOLIC PANEL Routine 03/29/2019 12:20 Re sults for this (7) [employer] procedure are i n the results section. POCT-GLUCOSE METER Routine 03/29/2019 12:18 Resul ts for this [employer] procedure are i n the results section. POCT-GLUCOSE METER Routine 03/29/2019 6:00 Resul ts for this [employer] procedure are i n the results section. XR CHEST 1 VIEW Routine 03/29/2019 4:42 Results for this PORTABLE/BEDSIDE [employer] procedure a re in the results section. APTT Routine 03/29/2019 3:33 Results for this [employer] procedure are i n the results section. CBC W/PLT COUNT & AUTO Routine 03/29/2019 3:30 R esults for this DIFFERENTIAL [employer] procedure are i n the results section. BASIC METABOLIC PANEL Routine 03/29/2019 3:30 Re sults for this (7) [employer] procedure are i n the results section. PHOSPHORUS Routine 03/29/2019 3:30 Results for this [employer] procedure are i n the results section. MAGNESIUM Routine 03/29/2019 3:30 Results for this [employer] procedure are i n the results section. CBC W/PLT COUNT & AUTO Routine 03/29/2019 3:30 R esults for this DIFFERENTIAL [employer] procedure are i n the results section. POCT-GLUCOSE METER Routine 03/29/2019 12:23 Resul ts for this [employer] procedure are i n the results section. APTT Routine 03/28/2019 8:25 Results for this [employer] procedure are i n the results section. VANCOMYCIN LEVEL, Timed 03/28/2019 8:25 Result s for this TROUGH [employer] procedure are i n the results section. POCT-GLUCOSE METER Routine 03/28/2019 5:33 Resul ts for this [employer] procedure are i n the results section. BASIC METABOLIC PANEL Routine 03/28/2019 4:03 Re sults for this (7) [employer] procedure are i n the results section. APTT Routine 03/28/2019 2:03 Results for this [employer] procedure are i n the results section. POCT-GLUCOSE METER Routine 03/28/2019 12:26 Resul ts for this [employer] procedure are i n the results section. CYTOLOGY AP Routine 03/28/2019 8:03 Results for this [employer] procedure are i n the results section. APTT Routine 03/28/2019 6:30 Results for this [employer] procedure are i n the results section. CBC W/PLT COUNT & AUTO Routine 03/28/2019 4:21 R esults for this DIFFERENTIAL [employer] procedure are i n the results section. APTT Routine 03/28/2019 4:21 Results for this [employer] procedure are i n the results section. BASIC METABOLIC PANEL Routine 03/28/2019 4:21 Re sults for this (7) [employer] procedure are i n the results section. PHOSPHORUS Routine 03/28/2019 4:21 Results for this [employer] procedure are i n the results section. MAGNESIUM Routine 03/28/2019 4:21 Results for this [employer] procedure are i n the results section. CBC W/PLT COUNT & AUTO Routine 03/28/2019 4:21 R esults for this DIFFERENTIAL [employer] procedure are i n the results section. XR CHEST 1 VIEW Routine 03/28/2019 3:24 Results for this PORTABLE/BEDSIDE [employer] procedure a re in the results section. POCT-GLUCOSE METER Routine 03/28/2019 12:13 Resul ts for this [employer] procedure are i n the results section. POCT-GLUCOSE METER Routine 03/27/2019 5:40 Resul ts for this [employer] procedure are i n the results section. BASIC METABOLIC PANEL Routine 03/27/2019 4:05 Re sults for this (7) [employer] procedure are i n the results section. APTT Routine 03/27/2019 12:05 Results for this [employer] procedure are i n the results section. POCT-GLUCOSE METER Routine 03/27/2019 11:31 Resul ts for this [employer] procedure are i n the results section. APTT Routine 03/27/2019 5:34 Results for this [employer] procedure are i n the results section. POCT-GLUCOSE METER Routine 03/27/2019 5:05 Resul ts for this [employer] procedure are i n the results section. CBC W/PLT COUNT & AUTO Routine 03/27/2019 4:32 R esults for this DIFFERENTIAL [employer] procedure are i n the results section. BASIC METABOLIC PANEL Routine 03/27/2019 4:32 Re sults for this (7) [employer] procedure are i n the results section. PHOSPHORUS Routine 03/27/2019 4:32 Results for this [employer] procedure are i n the results section. MAGNESIUM Routine 03/27/2019 4:32 Results for this [employer] procedure are i n the results section. CBC W/PLT COUNT & AUTO Routine 03/27/2019 4:32 R esults for this DIFFERENTIAL [employer] procedure are i n the results section. XR CHEST 1 VIEW Routine 03/27/2019 3:54 Results for this PORTABLE/BEDSIDE [employer] procedure a re in the results section. ECHOCARDIOGRAM REPORT 03/26/2019 9:11 - SCAN [employer] APTT Routine 03/26/2019 8:13 Results for this [employer] procedure are i n the results section. IR DRAINAGE CATHETER CHRISSIE 03/26/2019 7:30 Res ults for this CHANGE [employer] procedure are i n the results section. POCT-GLUCOSE METER Routine 03/26/2019 6:20 Resul ts for this [employer] procedure are i n the results section. BASIC METABOLIC PANEL Routine 03/26/2019 5:33 Re sults for this (7) [employer] procedure are i n the results section. APTT Routine 03/26/2019 12:53 Results for this [employer] procedure are i n the results section. POCT-GLUCOSE METER Routine 03/26/2019 11:54 Resul ts for this [employer] procedure are i n the results section. APTT Routine 03/26/2019 10:27 Results for this [employer] procedure are i n the results section. POCT-GLUCOSE METER Routine 03/26/2019 6:42 Resul ts for this [employer] procedure are i n the results section. XR CHEST 1 VIEW Routine 03/26/2019 3:58 Results for this PORTABLE/BEDSIDE [employer] procedure a re in the results section. BLOOD GAS, ARTERIAL Routine 03/26/2019 3:08 Resu lts for this [employer] procedure are i n the results section. CBC W/PLT COUNT & AUTO Routine 03/26/2019 3:00 R esults for this DIFFERENTIAL [employer] procedure are i n the results section. APTT Routine 03/26/2019 3:00 Results for this [employer] procedure are i n the results section. BASIC METABOLIC PANEL Routine 03/26/2019 3:00 Re sults for this (7) [employer] procedure are i n the results section. PHOSPHORUS Routine 03/26/2019 3:00 Results for this [employer] procedure are i n the results section. MAGNESIUM Routine 03/26/2019 3:00 Results for this [employer] procedure are i n the results section. CBC W/PLT COUNT & AUTO Routine 03/26/2019 3:00 R esults for this DIFFERENTIAL [employer] procedure are i n the results section. POCT-GLUCOSE METER Routine 03/26/2019 12:02 Resul ts for this [employer] procedure are i n the results section. BASIC METABOLIC PANEL Routine 03/25/2019 8:05 Re sults for this (7) [employer] procedure are i n the results section. 2D ECHO W/ DOPPLER STAT 03/25/2019 7:04 Resul ts for this (CW/PW/COLOR) [employer] procedure are in the results section. POCT-GLUCOSE METER Routine 03/25/2019 6:10 Resul ts for this [employer] procedure are i n the results section. CT ABDOMEN/PELVIS STAT 03/25/2019 6:00 Result s for this WITHOUT IV CONTRAST [employer] procedur e are in the results section. CT CHEST WITHOUT IV STAT 03/25/2019 6:00 Resu lts for this CONTRAST [employer] procedure are i n the results section. XR CHEST 1 VIEW STAT 03/25/2019 4:10 Results for this PORTABLE/BEDSIDE [employer] procedure a re in the results section. APTT Routine 03/25/2019 3:30 Results for this [employer] procedure are i n the results section. BASIC METABOLIC PANEL Routine 03/25/2019 11:46 Re sults for this (7) [employer] procedure are i n the results section. BLOOD GAS, ARTERIAL Routine 03/25/2019 11:43 Resu lts for this [employer] procedure are i n the results section. POCT-GLUCOSE METER Routine 03/25/2019 11:40 Resul ts for this [employer] procedure are i n the results section. APTT Routine 03/25/2019 9:33 Results for this [employer] procedure are i n the results section. BLOOD CULTURE Routine 03/25/2019 9:32 Results fo r this [employer] procedure are i n the results section. BLOOD CULTURE Routine 03/25/2019 9:32 Results fo r this [employer] procedure are i n the results section. URINALYSIS W/ REFLEX Routine 03/25/2019 9:08 Res ults for this URINE CULTURE [employer] procedure are in the results section. URINE CULTURE Routine 03/25/2019 9:08 Results fo r this [employer] procedure are i n the results section. SPUTUM CULTURE + GRAM Routine 03/25/2019 9:08 Re sults for this STAIN [employer] procedure are i n the results section. ECG 12-LEAD STAT 03/25/2019 8:09 Results for this [employer] procedure are i n the results section. POCT-GLUCOSE METER Routine 03/25/2019 6:06 Resul ts for this [employer] procedure are i n the results section. XR CHEST 1 VIEW Routine 03/25/2019 4:03 Results for this PORTABLE/BEDSIDE [employer] procedure a re in the results section. BASIC METABOLIC PANEL Routine 03/25/2019 3:30 Re sults for this (7) [employer] procedure are i n the results section. PHOSPHORUS Routine 03/25/2019 3:30 Results for this [employer] procedure are i n the results section. MAGNESIUM Routine 03/25/2019 3:30 Results for this [employer] procedure are i n the results section. CBC W/PLT COUNT & AUTO Routine 03/25/2019 3:09 R esults for this DIFFERENTIAL [employer] procedure are i n the results section. APTT Routine 03/25/2019 3:09 Results for this [employer] procedure are i n the results section. CBC W/PLT COUNT & AUTO Routine 03/25/2019 3:09 R esults for this DIFFERENTIAL [employer] procedure are i n the results section. POCT-GLUCOSE METER Routine 03/25/2019 12:01 Resul ts for this [employer] procedure are i n the results section. APTT Routine 03/24/2019 8:31 Results for this [employer] procedure are i n the results section. BASIC METABOLIC PANEL Routine 03/24/2019 8:31 Re sults for this (7) [employer] procedure are i n the results section. POCT-GLUCOSE METER Routine 03/24/2019 6:07 Resul ts for this [employer] procedure are i n the results section. XR ABDOMEN / KUB 1 STAT 03/24/2019 5:12 Resul ts for this VIEW [employer] procedure are i n the results section. XR CHEST 1 VIEW STAT 03/24/2019 5:12 Results for this PORTABLE/BEDSIDE [employer] procedure a re in the results section. APTT Routine 03/24/2019 12:36 Results for this [employer] procedure are i n the results section. BASIC METABOLIC PANEL Routine 03/24/2019 12:36 Re sults for this (7) [employer] procedure are i n the results section. POCT-GLUCOSE METER Routine 03/24/2019 12:17 Resul ts for this [employer] procedure are i n the results section. BLOOD GAS, ARTERIAL Routine 03/24/2019 12:04 Resu lts for this [employer] procedure are i n the results section. EEG EXTENDED STAT 03/24/2019 11:23 Results for this MONITORING 40 - 60 [employer] procedure are in MINUTES the results section. POCT-GLUCOSE METER Routine 03/24/2019 5:58 Resul ts for this [employer] procedure are i n the results section. BLOOD GAS, ARTERIAL STAT 03/24/2019 4:29 Resu lts for this [employer] procedure are i n the results section. APTT Routine 03/24/2019 4:25 Results for this [employer] procedure are i n the results section. CBC W/PLT COUNT & AUTO Routine 03/24/2019 4:10 R esults for this DIFFERENTIAL [employer] procedure are i n the results section. BASIC METABOLIC PANEL Routine 03/24/2019 4:10 Re sults for this (7) [employer] procedure are i n the results section. PHOSPHORUS Routine 03/24/2019 4:10 Results for this [employer] procedure are i n the results section. MAGNESIUM Routine 03/24/2019 4:10 Results for this [employer] procedure are i n the results section. CBC W/PLT COUNT & AUTO Routine 03/24/2019 4:10 R esults for this DIFFERENTIAL [employer] procedure are i n the results section. XR CHEST 1 VIEW Routine 03/24/2019 3:00 Results for this PORTABLE/BEDSIDE [employer] procedure a re in the results section. CT BRAIN WITHOUT IV Routine 03/24/2019 1:12 Resu lts for this CONTRAST [employer] procedure are i n the results section. POCT-GLUCOSE METER Routine 03/24/2019 12:05 Resul ts for this [employer] procedure are i n the results section. VANCOMYCIN LEVEL, Timed 03/23/2019 11:59 Result s for this TROUGH [employer] procedure are i n the results section. BASIC METABOLIC PANEL Routine 03/23/2019 7:44 Re sults for this (7) [employer] procedure are i n the results section. AMMONIA STAT 03/23/2019 3:55 Results for this [employer] procedure are i n the results section. HEPATIC FUNCTION PANEL Routine 03/23/2019 3:55 R esults for this [employer] procedure are i n the results section. BASIC METABOLIC PANEL Routine 03/23/2019 3:55 Re sults for this (7) [employer] procedure are i n the results section. (CELLAVISION MANUAL Routine 03/23/2019 5:58 Resu lts for this DIFF) [employer] procedure are i n the results section. CBC W/PLT COUNT & AUTO Routine 03/23/2019 5:58 R esults for this DIFFERENTIAL [employer] procedure are i n the results section. BLOOD GAS, ARTERIAL Routine 03/23/2019 5:58 Resu lts for this [employer] procedure are i n the results section. APTT Routine 03/23/2019 5:58 Results for this [employer] procedure are i n the results section. BASIC METABOLIC PANEL Routine 03/23/2019 5:58 Re sults for this (7) [employer] procedure are i n the results section. PHOSPHORUS Routine 03/23/2019 5:58 Results for this [employer] procedure are i n the results section. MAGNESIUM Routine 03/23/2019 5:58 Results for this [employer] procedure are i n the results section. CBC W/PLT COUNT & AUTO Routine 03/23/2019 5:58 R esults for this DIFFERENTIAL [employer] procedure are i n the results section. POCT-GLUCOSE METER Routine 03/23/2019 5:24 Resul ts for this [employer] procedure are i n the results section. POCT-GLUCOSE METER Routine 03/23/2019 12:09 Resul ts for this [employer] procedure are i n the results section. APTT Routine 03/22/2019 11:35 Results for this [employer] procedure are i n the results section. BASIC METABOLIC PANEL Routine 03/22/2019 8:05 Re sults for this (7) [employer] procedure are i n the results section. PT/APTT Routine 03/22/2019 5:15 Results for this [employer] procedure are i n the results section. SPIN/CONCENTRATION Routine 03/22/2019 2:37 Resul ts for this CHARGE [employer] procedure are i n the results section. FUNGUS CULTURE + Routine 03/22/2019 2:37 Results for this SMEAR [employer] procedure are i n the results section. BODY FLUID CELL COUNT Routine 03/22/2019 2:37 Re sults for this WITH DIFFERENTIAL [employer] procedure are in the results section. AFB CULTURE + SMEAR Routine 03/22/2019 2:37 Resu lts for this (NON-SPUTUM) [employer] procedure are i n the results section. TRIGLYCERIDES, PLEURAL Routine 03/22/2019 2:36 R esults for this FLUID [employer] procedure are i n the results section. PROTEIN, TOTAL, Routine 03/22/2019 2:36 Results for this PLEURAL FLUID [employer] procedure are in the results section. PH, BODY FLUID Routine 03/22/2019 2:36 Results f or this [employer] procedure are i n the results section. LACTATE DEHYDROGENASE Routine 03/22/2019 2:36 Re sults for this (LD), PLEURAL FLUID [employer] procedur e are in the results section. GLUCOSE PLEURAL FLUID Routine 03/22/2019 2:36 Re sults for this [employer] procedure are i n the results section. BODY FLUID CULTURE + Routine 03/22/2019 2:36 Res ults for this GRAM STAIN [employer] procedure are i n the results section. ADENOSINE DEAMINASE, Routine 03/22/2019 2:36 Res ults for this FLUID [employer] procedure are i n the results section. TRIGLYCERIDES, PLEURAL Routine 03/22/2019 2:35 R esults for this FLUID [employer] procedure are i n the results section. PH, BODY FLUID Routine 03/22/2019 2:35 Results f or this [employer] procedure are i n the results section. PROTEIN, TOTAL, Routine 03/22/2019 2:35 Results for this PLEURAL FLUID PM [employer] procedure are in the results section. LACTATE DEHYDROGENASE Routine 03/22/2019 2:35 Re sults for this (LD), PLEURAL FLUID [employer] procedur e are in the results section. GLUCOSE PLEURAL FLUID Routine 03/22/2019 2:35 Re sults for this PM [employer] procedure are i n the results section. FUNGUS CULTURE + Routine 03/22/2019 2:35 Results for this SMEAR [employer] procedure are i n the results section. BODY FLUID CULTURE + Routine 03/22/2019 2:35 Res ults for this GRAM STAIN PM [employer] procedure are i n the results section. BODY FLUID CELL COUNT Routine 03/22/2019 2:35 Re sults for this WITH DIFFERENTIAL PM [employer] procedure are in the results section. ALBUMIN PLEURAL FLUID Routine 03/22/2019 2:35 Re sults for this PM [employer] procedure are i n the results section. AFB CULTURE + SMEAR Routine 03/22/2019 2:35 Resu lts for this (NON-SPUTUM) PM [employer] procedure are i n the results section. ADENOSINE DEAMINASE, Routine 03/22/2019 2:35 Res ults for this FLUID [employer] procedure are i n the results section. SPIN/CONCENTRATION Routine 03/22/2019 2:32 Resul ts for this CHARGE [employer] procedure are i n the results section. SPIN/CONCENTRATION Routine 03/22/2019 2:32 Resul ts for this CHARGE [employer] procedure are i n the results section. AFB CULTURE + SMEAR CHRISSIE 03/22/2019 2:32 Resu lts for this (NON-SPUTUM) [employer] procedure are i n the results section. LEGIONELLA CULTURE Routine 03/22/2019 2:32 Resul ts for this [employer] procedure are i n the results section. FUNGUS CULTURE + CHRISSIE 03/22/2019 2:32 Results for this SMEAR [employer] procedure are i n the results section. BRONCHIAL CULTURE + CHRISSIE 03/22/2019 2:32 Resu lts for this GRAM STAIN [employer] procedure are i n the results section. FUNGUS CULTURE + Routine 03/22/2019 2:32 Results for this SMEAR [employer] procedure are i n the results section. AFB CULTURE + SMEAR Routine 03/22/2019 2:32 Resu lts for this (NON-SPUTUM) [employer] procedure are i n the results section. BRONCHIAL CULTURE + Routine 03/22/2019 2:32 Resu lts for this GRAM STAIN [employer] procedure are i n the results section. APTT Routine 03/22/2019 9:35 Results for this AM [employer] procedure are i n the results section. BASIC METABOLIC PANEL Routine 03/22/2019 9:35 Re sults for this (7) [employer] procedure are i n the results section. BLOOD CULTURE Routine 03/22/2019 9:35 Results fo r this AM [employer] procedure are i n the results section. BLOOD CULTURE Routine 03/22/2019 9:35 Results fo r this [employer] procedure are i n the results section. XR CHEST 1 VIEW Routine 03/22/2019 8:09 Results for this PORTABLE/BEDSIDE AM [employer] procedure a re in the results section. POCT-GLUCOSE METER Routine 03/22/2019 5:53 Resul ts for this [employer] procedure are i n the results section. CBC W/PLT COUNT & AUTO Routine 03/22/2019 1:58 R esults for this DIFFERENTIAL AM [employer] procedure are i n the results section. BASIC METABOLIC PANEL Routine 03/22/2019 1:58 Re sults for this (7) [employer] procedure are i n the results section. PHOSPHORUS Routine 03/22/2019 1:58 Results for this AM [employer] procedure are i n the results section. CBC W/PLT COUNT & AUTO Routine 03/22/2019 1:58 R esults for this DIFFERENTIAL AM [employer] procedure are i n the results section. MAGNESIUM STAT 03/22/2019 1:58 Results for this AM [employer] procedure are i n the results section. VANCOMYCIN LEVEL, Routine 03/22/2019 1:58 Result s for this TROUGH [employer] procedure are i n the results section. POCT-GLUCOSE METER Routine 03/22/2019 12:30 Resul ts for this AM [employer] procedure are i n the results section. BASIC METABOLIC PANEL Routine 03/21/2019 9:52 Re sults for this (7) PM [employer] procedure are i n the results section. TRANSFUSION SERVICE 03/21/2019 9:06 REPORT - SCAN PM [employer] BODY FLUID CULTURE + Routine 03/21/2019 7:34 Res ults for this GRAM STAIN [employer] procedure are i n the results section. TRIGLYCERIDES, PLEURAL Routine 03/21/2019 7:10 R esults for this FLUID [employer] procedure are i n the results section. PROTEIN, TOTAL, Routine 03/21/2019 7:10 Results for this PLEURAL FLUID PM [employer] procedure are in the results section. PH, BODY FLUID Routine 03/21/2019 7:10 Results f or this PM [employer] procedure are i n the results section. FUNGUS CULTURE + Routine 03/21/2019 7:10 Results for this SMEAR [employer] procedure are i n the results section. BODY FLUID CELL COUNT Routine 03/21/2019 7:10 Re sults for this WITH DIFFERENTIAL PM [employer] procedure are in the results section. LACTATE DEHYDROGENASE Routine 03/21/2019 7:09 Re sults for this (LD), PLEURAL FLUID [employer] procedur e are in the results section. GLUCOSE PLEURAL FLUID Routine 03/21/2019 7:09 Re sults for this [employer] procedure are i n the results section. ALBUMIN PLEURAL FLUID Routine 03/21/2019 7:09 Re sults for this [employer] procedure are i n the results section. US DRAINAGE CHEST WITH STAT 03/21/2019 6:25 R esults for this TUBE INSERTION PM [employer] procedure are in the results section. RETICULOCYTE COUNT Routine 03/21/2019 8:50 Resul ts for this AM [employer] procedure are i n the results section. RESPIRATORY PANEL SLHS Routine 03/21/2019 8:50 R esults for this AM [employer] procedure are i n the results section. RAPID INFLUENZA A&B STAT 03/21/2019 8:50 Resu lts for this SCREEN [employer] procedure are i n the results section. MRSA SCREEN STAT 03/21/2019 8:50 Results for this [employer] procedure are i n the results section. MAGNESIUM Add-On 03/21/2019 8:49 Results for this [employer] procedure are i n the results section. BASIC METABOLIC PANEL Routine 03/21/2019 8:49 Re sults for this (7) [employer] procedure are i n the results section. VITAMIN B12 AND FOLATE Routine 03/21/2019 8:49 R esults for this [employer] procedure are i n the results section. LACTATE DEHYDROGENASE Routine 03/21/2019 8:49 Re sults for this (LDH) AM [employer] procedure are i n the results section. IRON, TIBC, % SAT. Routine 03/21/2019 8:49 Resul ts for this (WITHOUT FERRITIN) [employer] procedure are in the results section. FERRITIN Routine 03/21/2019 8:49 Results for this [employer] procedure are i n the results section. POCT-GLUCOSE METER Routine 03/21/2019 5:34 Resul ts for this [employer] procedure are i n the results section. US ABDOMEN LIMITED Routine 03/21/2019 3:55 Resul ts for this [employer] procedure are i n the results section. (CELLAVISION MANUAL Routine 03/21/2019 2:03 Resu lts for this DIFF) [employer] procedure are i n the results section. CBC W/PLT COUNT & AUTO Routine 03/21/2019 2:03 R esults for this DIFFERENTIAL AM [employer] procedure are i n the results section. PHOSPHORUS Routine 03/21/2019 2:03 Results for this [employer] procedure are i n the results section. MAGNESIUM Routine 03/21/2019 2:03 Results for this [employer] procedure are i n the results section. CBC W/PLT COUNT & AUTO Routine 03/21/2019 2:03 R esults for this DIFFERENTIAL AM [employer] procedure are i n the results section. MAGNESIUM STAT Add-on 03/21/2019 12:18 Results for this [employer] procedure are i n the results section. BASIC METABOLIC PANEL Routine 03/21/2019 12:18 Re sults for this (7) [employer] procedure are i n the results section. POCT-GLUCOSE METER Routine 03/20/2019 11:46 Resul ts for this PM [employer] procedure are i n the results section. ECHOCARDIOGRAM REPORT 03/20/2019 9:22 - SCAN [employer] POCT-GLUCOSE METER Routine 03/20/2019 6:11 Resul ts for this [employer] procedure are i n the results section. BLOOD GAS, ARTERIAL STAT 03/20/2019 4:34 Resu lts for this [employer] procedure are i n the results section. MAGNESIUM STAT Add-on 03/20/2019 4:33 Results for this [employer] procedure are i n the results section. BASIC METABOLIC PANEL Routine 03/20/2019 4:33 Re sults for this (7) [employer] procedure are i n the results section. VANCOMYCIN LEVEL, STAT 03/20/2019 12:58 Result s for this TROUGH [employer] procedure are i n the results section. ECG 12-LEAD Routine 03/20/2019 12:42 PM [employer] Procedure Note - Interface, External Ris In - 03/20/2019 1:04 PM [employer] Ventricular Rate 95 BPM Atrial Rate 326 BPM QRS Duration 106 ms Q-T Interval 362 ms QTC Calculation(Bazett) 454 ms R [place] 15 degrees T [place] 134 degrees Atrial fibrillation Minimal voltage criteria for LVH, may be normal variant Nonspecific ST and T wave ab normality , probably digitalis effect Abnormal ECG When compared with ECG of 00:28, T wave inversion no longer e vident in Anterior leads ECG 12-LEAD Routine 03/20/2019 12:42 PM [employer] Resu lts for this procedure are i n the results section . POCT-GLUCOSE METER Routine 03/20/2019 12:14 PM [employer] Results for this procedure are i n the results section . 2D ECHO W/ DOPPLER STAT 03/20/2019 11:05 AM [employer] Results for this (CW/PW/COLOR) procedure are in the results section . CT CHEST WITHOUT IV STAT 03/20/2019 10:45 AM [employer] Results for this CONTRAST procedure are i n the results section . SPUTUM CULTURE + GRAM STAIN Routine 03/20/2019 6:31 AM [employer] Results for this procedure are i n the results section . TROPONIN I Routine 03/20/2019 5:49 AM [employer] Resu lts for this procedure are i n the results section . ABORH, MANUAL STAT 03/20/2019 5:48 AM [employer] Res ults for this procedure are i n the results section . POCT-GLUCOSE METER Routine 03/20/2019 5:44 AM [employer] Results for this procedure are i n the results section . XR CHEST 1 VIEW STAT 03/20/2019 4:05 AM [employer] R esults for this PORTABLE/BEDSIDE procedure a re in the results section . BLOOD GAS, ARTERIAL STAT 03/20/2019 3:14 AM [employer] Results for this procedure are i n the results section . BLOOD CULTURE Routine 03/20/2019 3:08 AM [employer] Res ults for this procedure are i n the results section . BLOOD CULTURE Routine 03/20/2019 3:08 AM [employer] Res ults for this procedure are i n the results section . TYPE AND SCREEN, AUTOMATED STAT 03/20/2019 3:00 AM [employer] Results for this procedure are i n the results section . FIBRINOGEN STAT 03/20/2019 3:00 AM [employer] Resu lts for this procedure are i n the results section . LACTIC ACID, VENOUS STAT 03/20/2019 3:00 AM [employer] Results for this procedure are i n the results section . PT/APTT Routine 03/20/2019 3:00 AM [employer] Resu lts for this procedure are i n the results section . PROTHROMBIN TIME/INR Routine 03/20/2019 3:00 AM [employer] Results for this procedure are i n the results section . TSH/FREE T4 IF INDICATED Routine 03/20/2019 3:00 AM [employer] Results for this procedure are i n the results section . HEMOGLOBIN A1C Routine 03/20/2019 3:00 AM [employer] Re sults for this procedure are i n the results section . B-TYPE NATRIURETIC FACTOR STAT 03/20/2019 3:00 AM [employer] Results for this (BNP) procedure are i n the results section . VANCOMYCIN LEVEL, RANDOM Routine 03/20/2019 3:00 AM [employer] Results for this procedure are i n the results section . CBC W/PLT COUNT & AUTO Routine 03/20/2019 2:59 AM [employer] Results for this DIFFERENTIAL procedure are i n the results section . CBC W/PLT COUNT & AUTO Routine 03/20/2019 2:59 AM [employer] Results for this DIFFERENTIAL procedure are i n the results section . LIPID PANEL Routine 03/20/2019 2:59 AM [employer] Resu lts for this procedure are i n the results section . TROPONIN I Routine 03/20/2019 2:59 AM [employer] Resu lts for this procedure are i n the results section . PHOSPHORUS STAT 03/20/2019 2:59 AM [employer] Resu lts for this procedure are i n the results section . MAGNESIUM STAT 03/20/2019 2:59 AM [employer] Resu lts for this procedure are i n the results section . HEPATIC FUNCTION PANEL STAT 03/20/2019 2:59 AM [employer] Results for this procedure are i n the results section . BASIC METABOLIC PANEL (7) STAT 03/20/2019 2:59 AM [employer] Results for this procedure are i n the results section . LEGIONELLA URINE ANTIGEN Routine 03/20/2019 2:23 AM [employer] Results for this procedure are i n the results section . STREP PNEUMONIAE ANTIGEN Routine 03/20/2019 2:23 AM [employer] Results for this procedure are i n the results section . URINALYSIS W/ REFLEX URINE Routine 03/20/2019 2:22 AM [employer] Results for this CULTURE procedure are i n the results section . OSMOLALITY, URINE Routine 03/20/2019 2:22 AM [employer] Results for this procedure are i n the results section . PROTEIN, RANDOM URINE Routine 03/20/2019 2:22 AM [employer] Results for this procedure are i n the results section . UREA NITROGEN, RANDOM URINE Routine 03/20/2019 2:22 AM [employer] Results for this procedure are i n the results section . CREATININE, RANDOM URINE Routine 03/20/2019 2:22 AM [employer] Results for this procedure are i n the results section . CHLORIDE, RANDOM URINE Routine 03/20/2019 2:22 AM [employer] Results for this procedure are i n the results section . SODIUM, RANDOM URINE Routine 03/20/2019 2:22 AM [employer] Results for this procedure are i n the results section . URINE CULTURE Routine 03/20/2019 2:22 AM [employer] Res ults for this procedure are i n the results section . POCT-GLUCOSE METER Routine 03/20/2019 12:39 AM [employer] Results for this procedure are i n the results section . ECG 12-LEAD Routine 03/20/2019 12:28 AM [employer] Procedure Note - Interface, External Ris In - 03/20/2019 1:55 [employer] Ventricular Rate 125 BPM Atrial Rate 129 BPM QRS Duration 106 ms Q-T Interval 356 ms QTC Calculation(Bazett) 513 ms R [place] 15 degrees T [place] 168 degrees Atrial fibrillation with rap id ventricular response with premature ventricular or aberrantly conducted complexes ST & T wave abnormality, con gut dropper anterolateral ischemia or digitalis effect Abnormal ECG When compared with ECG of 09:00, ST now depressed in Anterior leads Nonspecific T wave abnormali ty has replaced inverted T waves in Inferior leads T wave inversion now evident in Anterior leads ECG 12-LEAD Routine 03/20/2019 12:28 AM [employer] Resu lts for this procedure are i n the results section . REPORT OF PROCEDURE - 01/28/2019 1:40 PM [employer] ENDOSCOPY SCAN RHYTHM STRIP - SCAN 01/28/2019 1:40 PM [employer] CBC W/PLT COUNT & AUTO Routine 01/24/2019 4:31 AM [employer] Results for this DIFFERENTIAL procedure are i n the results section . PHOSPHORUS STAT Add-on 01/24/2019 4:31 AM [employer] Resu lts for this procedure are i n the results section . MAGNESIUM STAT Add-on 01/24/2019 4:31 AM [employer] Resu lts for this procedure are i n the results section . BASIC METABOLIC PANEL (7) Routine 01/24/2019 4:31 AM [employer] Results for this procedure are i n the results section . CBC W/PLT COUNT & AUTO Routine 01/24/2019 4:31 AM [employer] Results for this DIFFERENTIAL procedure are i n the results section . TROPONIN I STAT 01/23/2019 9:59 PM [employer] Resu lts for this procedure are i n the results section . ECHOCARDIOGRAM REPORT - 01/23/2019 9:21 PM [employer] SCAN TROPONIN I STAT 01/23/2019 4:02 PM [employer] Resu lts for this procedure are i n the results section . B-TYPE NATRIURETIC FACTOR STAT 01/23/2019 10:13 AM [employer] Results for this (BNP) procedure are i n the results section . TROPONIN I STAT 01/23/2019 10:13 AM [employer] Resu lts for this procedure are i n the results section . TSH/FREE T4 IF INDICATED CHRISSIE 01/23/2019 10:13 AM [employer] Results for this procedure are i n the results section . ECG 12-LEAD STAT 01/23/2019 9:00 AM [employer] Resu lts for this procedure are i n the results section . MRA HEAD WITHOUT IV STAT 01/23/2019 8:01 AM [employer] Results for this CONTRAST procedure are i n the results section . CBC W/PLT COUNT & AUTO Routine 01/23/2019 4:59 AM [employer] Results for this DIFFERENTIAL procedure are i n the results section . MAGNESIUM STAT Add-on 01/23/2019 4:59 AM [employer] Resu lts for this procedure are i n the results section . BASIC METABOLIC PANEL (7) Routine 01/23/2019 4:59 AM [employer] Results for this procedure are i n the results section . CBC W/PLT COUNT & AUTO Routine 01/23/2019 4:59 AM [employer] Results for this DIFFERENTIAL procedure are i n the results section . POTASSIUM Routine 01/22/2019 7:43 PM [employer] Resu lts for this procedure are i n the results section . MR BRAIN WITHOUT IV Routine 01/22/2019 6:11 PM [employer] Results for this CONTRAST procedure are i n the results section . CT/CTA CAROTID Routine 01/22/2019 4:59 PM [employer] Re sults for this procedure are i n the results section . CTA BRAIN Routine 01/22/2019 4:59 PM [employer] Resu lts for this procedure are i n the results section . 2D ECHO W/ DOPPLER Routine 01/22/2019 1:16 PM [employer] Results for this (CW/PW/COLOR) procedure are in the results section . MAGNESIUM STAT Add-on 01/22/2019 4:17 AM [employer] Resu lts for this procedure are i n the results section . TROPONIN I Routine 01/22/2019 4:17 AM [employer] Resu lts for this procedure are i n the results section . HEMOGLOBIN A1C Routine 01/22/2019 4:17 AM [employer] Re sults for this procedure are i n the results section . LIPID PANEL Routine 01/22/2019 4:17 AM [employer] Resu lts for this procedure are i n the results section . CBC W/PLT COUNT & AUTO Routine 01/21/2019 11:26 PM [employer] Results for this DIFFERENTIAL procedure are i n the results section . PROTHROMBIN TIME/INR Routine 01/21/2019 11:26 PM [employer] Results for this procedure are i n the results section . VITAMIN B12 AND FOLATE Routine 01/21/2019 11:26 PM [employer] Results for this procedure are i n the results section . RPR Routine 01/21/2019 11:26 PM [employer] Resu lts for this procedure are i n the results section . TSH/FREE T4 IF INDICATED Routine 01/21/2019 11:26 PM [employer] Results for this procedure are i n the results section . TROPONIN I Routine 01/21/2019 11:26 PM [employer] Resu lts for this procedure are i n the results section . CBC W/PLT COUNT & AUTO Routine 01/21/2019 11:26 PM [employer] Results for this DIFFERENTIAL procedure are i n the results section . BASIC METABOLIC PANEL (7) Routine 01/21/2019 11:26 PM [employer] Results for this procedure are i n the results section . XR CHEST 1 VIEW Routine 01/21/2019 11:19 PM [employer] R esults for this PORTABLE/BEDSIDE procedure a re in the results section . after 07/15/2018 Results RHYTHM STRIP - SCAN (07/02/2019 12:50 PM CDT)Only the most recent of7 results within the time period is included. Narrative Performed At This result has an attachment that is no t available. EKG-SCANNED (07/02/2019 12:50 PM CDT)Only the most recent of2 resultswithin the time period is included. Narrative Performed At This result has an attachment that is no t available. POC-Glucose meter (06/09/2019 6:23 PM CDT)Only the most recent of145 results within the time period is included. POC-Glucose Meter 72Comment: : TESTED AT 70 - 110 mg/dL [facility] [address] [facility], [id number]: General Forecaster/Burial Agent ID = [id number] for RYAN ECHOLS Specimen Blood Performing Organization Address City/State/Zipcode Phone Number [address] [address] [place] Comprehensive metabolic panel (06/09/2019 11:30 AM CDT)Only the most recent of10 resultswithin the time period is included. Protein, Total 6.7Comment: Specimen 6.0 - 8.3 gm/dL [facility] slightly hemolyzed [facility] Albumin 2.1 (L)Comment: Specimen 3.5 - 5.0 g/dL [facility] slightly hemolyzed [facility] Alkaline Phosphatase 202 (H) 40 - 150 U/L [facility] MED[facility] ER Total Bilirubin 1.2Comment: Specimen 0.2 - 1.2 mg/dL [facility] slightly hemolyzed [facility] Sodium 142 136 - 145 meq/L [facility] ALTH [facility] MEDICAL [facility] ER Potassium 4.4Comment: Specimen 3.5 - 5.1 meq/L [facility] slightly hemolyzed [facility] Chloride 107 98 - 107 meq/L [facility] MEDICAL [facility] ER CO2 30 (H) 22 - 29 meq/L [facility] ALTH [facility] MEDICAL [facility] ER BUN 25 (H) 7 - 21 mg/dL [facility] ALTH [facility] MEDICAL [facility] ER Creatinine 0.76Comment: Specimen 0.57 - 1.25 mg/dL [facility] slightly hemolyzed [facility] Glucose 108 (H) 70 - 105 mg/dL [facility] ALTH [facility] MEDICAL [facility] ER Calcium 7.9 (L) 8.4 - 10.2 mg/dL [facility] MEDICAL [facility] ER AST 77 (H)Comment: Specimen 5 - 34 U/L [facility] slightly hemolyzed [facility] ALT 86 (H)Comment: Specimen 6 - 55 U/L [facility] slightly hemolyzed [facility] C [facility] EGFR 103Comment: ESTIMATED mL/min/1.73 sq m [facility] GFR IS NOT ACCURATE [facility] CREATININE CLEARANCE IN PREDICTING GLOMERULAR FILTRATION RATE. ESTIMATED GFR IS NOT APPLICABLE FOR DIALYSIS PATIENTS. Specimen Blood Narrative Performed At General Forecaster ID - ELISSA M [facility] Performing Organization Address City/[facility]/Zipcode Phone Number [address] [address] CENTER Potassium (06/05/2019 4:31 PM CDT)Only the most recent of2 resultswithin the time period is included. Potassium 3.9 3.5 - 5.1 meq/L [facility] Specimen Blood Narrative Performed At General Forecaster ID - BS [facility] Performing Organization Address City/[facility]/Zipcode Phone Number [address] [address] CENTER Basic Metabolic Panel (06/05/2019 6:01 AM CDT)Only the most recent of74 results within the time period is included. Sodium 145 136 - 145 meq/L [facility] Potassium 3.0 (L) 3.5 - 5.1 meq/L [facility] Chloride 101 98 - 107 meq/L [facility] CO2 38 (H) 22 - 29 meq/L [facility] BUN 28 (H) 7 - 21 mg/dL [facility] Creatinine 0.87 0.57 - 1.25 mg/dL [facility] Glucose 110 (H) 70 - 105 mg/dL [facility] Calcium 7.9 (L) 8.4 - 10.2 mg/dL [facility] EGFR 88Comment: ESTIMATED GFR IS mL/min/1.73 sq m [facility] NOT ACCURATE CREATININE [facility] CLEARANCE IN PREDICTING GLOMERULAR FILTRATION RATE. ESTIMATED GFR IS NOT APPLICABLE FOR DIALYSIS PATIENTS. Specimen Blood Narrative Performed At General Forecaster ID - PIAYA L [facility] Performing Organization Address City/State/Zipcode Phone Number [facility] [address] [place] [address] [facility] esoph swallow funct with cine video (06/04/2019 2:45 PM CDT)Only the most recent of3 resultswithin the time period is included. Specimen Narrative Performed At FINAL REPORT RIS EXAMINATION: Modified barium swallow juan carlos dy INDICATION: Dysphagia. COMPARISON: Modified barium swallow of . TECHNIQUE: The examination was performed in conjunction with speech pathology. Varying consistencies of vira um was administered under lateral fluoroscopic observation. Fluoroscopy time: 1.4 minutes Number of images: 4 IMPRESSION: There was some degree of lar yngeal penetration and aspiration with all of the textures of t he administered barium. Please refer to speech pathologist's not e from same date for further description. Signed: Fredi Lucas MD Report Verified Date/Time:06/04/2019 15:08:42 Reading Location: [address] Reading Room Procedure Note Interface, External Ris In - 06/09/2019 4:56 PM CDT FINAL REPORT EXAMINATION: Modified barium swallow juan carlos dy INDICATION: Dysphagia. COMPARISON: Modified barium swallow of . TECHNIQUE: The examination was performed in conjunction with speech pathology. Varying consistencies of vira um was administered under lateral fluoroscopic observation. Fluoroscopy time: 1.4 minutes Number of images: 4 IMPRESSION: There was some degree of lar yngeal penetration and aspiration with all of the textures of t he administered barium. Please refer to speech pathologist's not e from same date for further description. Signed: Fredi Lucas MD Report Verified Date/Time: 06/04/2019 1 5:08:42 Reading Location: [address] Reading Room Performing Organization Address City/State/Zipcode Phone Number GE RIS CBC with platelet count + automated diff (06/04/2019 5:15 AM CDT)Only the most recent of56 resultswithin the time period is included. WBC 13.3 (H) 3.5 - 10.5 K/L [facility] RBC 4.12 (L) 4.63 - 6.08 M/L [facility] Hemoglobin 10.8 (L) 13.7 - 17.5 GM/DL [facility] Hematocrit 35.6 (L) 40.1 - 51.0 % [facility] MCV 86.4 79.0 - 92.[address] [facility] MCH 26.2 25.7 - 32.[address] [facility] MCHC 30.3 (L) 32.3 - 36.5 GM/DL [facility] RDW 20.1 (H) 11.6 - 14.4 % [facility] Platelets 240 150 - 450 K/CU MM [facility] MPV 12.3 9.4 - 12.[address] [facility] nRBC 0 0 - 0 /100 WBC [facility] % Neutros 71 % [facility] % Lymphs 16 % [facility] % Monos 9 % [facility] % Eos 3 % [facility] % Baso 1 % [facility] # Neutros 9.45 (H) 1.78 - 5.38 K/L [facility] # Lymphs 2.08 1.32 - 3.57 K/L [facility] # Monos 1.24 (H) 0.30 - 0.82 K/L [facility] # Eos 0.43 0.04 - 0.54 K/L [facility] # Baso 0.07 0.01 - 0.08 K/L [facility] Immature Granulocytes-Relative 0 0 - 1 % C [facility] Specimen Blood Performing Organization Address City/State/Zipcode Phone Number [facility] [address] [place] [address] [place] US abdomen limited (06/04/2019 2:10 AM CDT)Only the most recent of2 results within the time period is included. Specimen Narrative Performed At FINAL REPORT H-art (WPP) History: Elevated LFTs Abdominal ultrasound dated 06/04/2019 Comparison: 03/20/2019 Comment:Real-time transabdominal ult rasound of the right upper quadrant abdomen was performed. Liver: 14.1 cm , normal. Normal echogeni city. No focal lesions. Gallbladder: No gallstones. No gallbladd er wall thickening. No perocholecystic fluid.. No sonographic M urphy's sign. Biliary tree: No intrahepatic ductal dil atation. CBD: 5 mm. MPV: 8 mm Pancreas: Unremarkable. Right kidney: 11.1 x 6.2 x 5.5 cm. Viviana l echogenicity. No ascites is present in the abdomen. The visualized abdominal aorta is normal in caliber. The IVC and Hepatic veins are patent. Impression: No ultrasound abnormality to explain the patient's elevated LFTs. Signed: Reji Tyler MD Report Verified Date/Time:06/04/2019 04:00:37 Procedure Note Interface, External Ris In - 06/04/2019 4:02 AM CDT FINAL REPORT History: Elevated LFTs Abdominal ultrasound dated 06/04/2019 Comparison: 03/20/2019 Comment: Real-time transabdominal ultra sound of the right upper quadrant abdomen was performed. Liver: 14.1 cm , normal. Normal echogeni city. No focal lesions. Gallbladder: No gallstones. No gallbladd er wall thickening. No perocholecystic fluid.. No sonographic M urphy's sign. Biliary tree: No intrahepatic ductal dil atation. CBD: 5 mm. MPV: 8 mm Pancreas: Unremarkable. Right kidney: 11.1 x 6.2 x 5.5 cm. Viviana l echogenicity. No ascites is present in the abdomen. The visualized abdominal aorta is normal in caliber. The IVC and Hepatic veins are patent. Impression: No ultrasound abnormality to explain the patient's elevated LFTs. Signed: Reji Tyler MD Report Verified Date/Time: 06/04/2019 0 4:00:37 Performing Organization Address City/[facility] Phone Number RIS Ammonia (06/03/2019 2:56 PM CDT)Only the most recent of2 resultswithin the time period is included. Ammonia 82 (H) 18 - 72 mol/L [facility] Specimen Blood Narrative Performed At General Forecaster ID - BS [facility] Performing Organization Address City/[facility]/Zipcode Phone Number [facility] [address] [place] [address] CENTER Magnesium (06/03/2019 5:25 AM CDT)Only the most recent of55 resultswithin the time period is included. Magnesium 2.2Comment: Specimen slightly 1.6 - 2.6 mg/dL [facility] hemolyzed [facility] Specimen Blood Narrative Performed At General Forecaster ID - BS [facility] Performing Organization Address [facility]/Zipcode Phone Number [place] [phone] [place] [address] [place] Blood gas, arterial (06/02/2019 8:15 AM CDT)Only the most recent of23 results within the time period is included. pH, Arterial 7.57 (H) 7.35 - 7.45 [facility] pCO2, Arterial 50 (H) 35 - 45 mmHg [facility] pO2, Arterial 68 (L) 80 - 90 mmHg [facility] O2 Sat, Arterial 95.6 (L) 96.0 - 97.0 % [facility] HCO3, Arterial 45 (HH) 21 - 29 mmol/L [facility] Base Excess, Arterial 20.4 (H) -2.0 - 3.0 mmol/L [facility] Patient Temperature 36.7 C [facility] FIO2 21.0 % [facility] Specimen Blood, Arterial Performing Organization Address City/State/Zipcode Phone Number [address] [address] [place] Vancomycin level, trough (06/02/2019 1:24 AM CDT)Only the most recent of5 resultswithin the time period is included. Vancomycin Tr 32.2 (HH) 10.0 - 20.0 ug/mL [facility] Specimen Blood Narrative Performed At General Forecaster ID - SANDRA Richards [facility] Performing Organization Address City/State/Zipcode Phone Number [address] [address] [place] ECHOCARDIOGRAM REPORT - SCAN (06/01/2019 9:20 PM CDT) Narrative Performed At This result has an attachment that is no t available. 2D Echo W/Doppler(CW/PW/Color) (06/01/2019 2:50 PM CDT) Ejection Fraction [facility] ECHO HEAR TLAB [facility] Specimen Narrative Performed At Transthoracic Echocardiography Report (T TE) [facility] ECHO HEARTLAB [facility] Demographics Patient Roya Valdes of Study06/01/2019 Male Visit [id number] Unknown Room [id number] Number Date of 1955Referring PhysicianOle Dominguez MD Age 63 year(s)Rechecker Isael Middleton Statistician Mathematical Aliya Yee Interpreting Stephan Conklin MD Procedure Type of Study TTE procedure:2DECHO W DOPPLER(CW/PW/COLOR) (Routine) Indications:Shortness of breath. Clinical History HGB 10.7 HCT 34.4 % AFIB COPD HTN CORONARY ARTERY BYPASS GRAFT MITRAL VALVULOPLASTY TISSUE AVR Contrast Medium: Definity. Amount - 2 ml Height: 69 inches Weight: 73.94 kg (163 lbs) BSA: 1.89 m^2 BMI: 24.07 kg/m^2 HR: 94 bpm BP: 135/70 mmHg Summary The left ventricle is chamber size (by vol index) is normal (male - LVED vol - 34-74ml/m2). All of the LV segments contract normally . Septal motion is paradoxical post cardiac surgery. LVEF by Palumbo's method of disk assessment is normal (>60%) . Degree of diastolic dysfunction (LAP assessment) is inconclusive due to MV annuloplasty . A biologic tissue AoV prosthesis is vis ualized . A trace of aortic regurgitation. The prosthetic AoV appears well-seated with normal function by Doppler. AoV dimensionless obstructive index (DOI)) is 0.83 . Peak Grad 4.86mmHg ,Mean Grad 2.43mmHg . No significant pericardial effusion is visualized. MV annuloplasty ring is present . Trace mitral regurgitation. Acceptable MV inflow gradients s/p MV annuloplasty. Mean 5.16mmHg. Unable to estimate peak systolic PA pressure; inadequate TR velocity signal. Signature Findings Left Ventricle The left ventricle is chamber size (by vol index) is normal (male - LVED vol - 34-74ml/m2). No rmal LV wall thickness. Al l of the LV segments contract normally . Gl obal LV systolic function normal . LV EF by Palumbo's method of disk assessmen t is no rmal (>60%) . Th e LVEF was measured using Palumbo's bi-p josé luis me thod of disk . LV endocardium is adequately visualized wit h IV ul trasound enhancing agent. De gree of diastolic dysfunction (LAP asses sment) is in conclusive due to MV annuloplasty . Left AtriumLA size is severely enlarged (>48 ml/m2) . Right VentricleRV is partially visualized. Th e right ventricular chamber size and sys tolic fu nction appears within normal limits. Right Atrium RA cavity size is normal . Aortic Valve A biologic tissue AoV prosthesis is visualized . A trace of aortic regurgitation. Th e prosthetic AoV appears well-seated wit h normal fu nction by Doppler. Ao V dimensionless obstructive index (DOI)) is 0.83 . Peak Grad 4.86mmHg ,Mean Grad 2.43mmHg . Mitral Valve MV annuloplasty ring is present . Tr laura mitral regurgitation. Ac ceptable MV inflow gradients s/p MV joel loplasty. Me an 5.16mmHg. Tricuspid ValveUnable to estimate peak systolic PA pressure; in adequate TR velocity signal. Pulmonic Valve Normal PV structure and function. AortaAortic root size (Sinus of Valsalva diameter) i s mi ldly dilated. 3.8 cm. PericardiumNo significant pericardial effusion is visualized. IVC/SVC/PA/PV/PleuralThe estimated RA pressure by IVC dynamics 16-20mmHg . Chambers/Structures Left Atrium LA Volume: 97.09 ml LA Area: 29.78 cm^2 LA Vol. Index: 51 ml/m^2 Left Ventricle LVIDd: 4.53 cm LVEDV:143.73 ml LV Septum Diastolic: 0.91 cm LV PW Diastolic: 0.99 cm LVEDV Palumbo's:87.32 ml LVESV Palumbo's:28.71 ml LVEF Palumbo's: 67.1 % LVEDVI: 46 ml/m^2 LVESVI: 15 ml/m^2 LVOT Diameter: 2.01 cm Right Atrium RA Vol. (Sngl Plane): 4 6.78 ml Right Ventricle RVOT VTI: 14.02 cm Aorta Ao Root S of Isabell.: 3.79 cm Doppler/Quantitative Measurements Mitral Valve Mean Velocity: 1.01 m/s Mean Gradient: 5.16 mmHgArea (continuity): 1.5 cm^2 MV VTI: 34.79 cm MV Jordin. Peak: 1.83 m/s Aortic Valve Peak Velocity: 1.1 m/s Mean Velocity: 0.71 m/s Peak Gradient: 4.86 mmHg Mean Gradient: 2.43 mmHg AV Area (continuity): 2.62 cm^2 AV VTI: 19.91 cm AV DVI: 0.83 LVOT Peak Velocity: 0.96 m/s Peak Gradient: 3.65 mmHg Mean Velocity: 0.62 m/s Mean Gradient: 1.84 mmHg LVOT Diameter: 2.01 cmLVOT VTI: 16.43 cm LVOT Area: 3.17 cm^2LVOT SV:52.11 ml LVOT CO: 4.9 l/minLVOT CI: 2.59 l/min/m^2 Procedure Note Interface, External Ris In - 06/01/2019 5:21 PM CDT Transthoracic Echocardiography Report (TTE) Demographics Patient Name JOHN VERGARA Date of Study 06/01/2019 Gender Male Visit Number [id number] Race Unknown Room [facility] [id number] Number Date of 1955 Referri Physician Ole Dominguez MD Age 63 year(s) Sonogra pher Abed Kane Statistician Mathematical Aliya Yee Interpr eting Isaac Gonzalez MD Procedure Type of Study TTE procedure:2DECHO W DOPPLE R(CW/PW/COLOR) (Routine) Indications:Shortness of breath. Clinical History HGB 10.7 HCT 34.4 % AFIB COPD HTN CORONARY ARTERY BYPASS GRAFT MITRAL VALVULOPLASTY TISSUE AVR Contrast Medium: Definity. Amount - 2 ml Height: 69 inches Weight: 73.94 kg (163 lbs) BSA: 1.89 m^2 BMI: 24.07 kg/m^2 HR: 94 bpm BP: 135/70 mmHg Summary The left ventricle is chamber size (by vol index) is normal (male - LVED vol - 34-74ml/m2). All of the LV segments contract normall y . Septal motion is paradoxical post cardiac surgery. LVEF by Palumbo's method of disk assessment is normal (>60%) . Degree of diastolic dysfunction (LAP as sessment) is inconclusive due to MV annuloplasty . A biologic tissue AoV prosthesis is vis ualized . A trace of aortic regurgitation. The prosthetic AoV appears well-seated with normal function by Doppler. AoV dimensionless obstructive index (DO I)) is 0.83 . Peak Grad 4.86mmHg ,Mean Grad 2.43mmHg . No significant pericardial effusion is visualized. MV annuloplasty ring is present . Trace mitral regurgitation. Acceptable MV inflow gradients s/p MV a nnuloplasty. Mean 5.16mmHg. Unable to estimate peak systolic PA pre ssure; inadequate TR velocity signal. Signature Findings Left Ventricle The left ventric le is chamber size (by vol index) is normal (male - LVED vol - 34-74ml/m2). Normal LV wall t hickness. All of the LV se gments contract normally . Global LV systol ic function normal . LVEF by Palumbo' s method of disk assessment is normal (>60%) . The LVEF was nichole sured using Palumbo's bi-plane method of disk . LV endocardium i s adequately visualized with IV ultrasound enhan cing agent. Degree of diasto lic dysfunction (LAP assessment) is inconclusive due to MV annuloplasty . Left Atrium LA size is sever laine enlarged (>48 ml/m2) . Right Ventricle RV is partially visualized. The right ventri cular chamber size and systolic function appears within normal limits. Right Atrium RA cavity size i s normal . Aortic Valve A biologic tissu e AoV prosthesis is visualized . A trace of aorti c regurgitation. The prosthetic A oV appears well-seated with normal function by Dopp ler. AoV dimensionles s obstructive index (DOI)) is 0.83 . Peak Grad 4.86 mmHg ,Mean Grad 2.43mmHg . Mitral Valve MV annuloplasty ring is present . Trace mitral reg urgitation. Acceptable MV in flow gradients s/p MV annuloplasty. Mean 5.16mmHg. Tricuspid Valve Unable to estima te peak systolic PA pressure; inadequate TR ve locity signal. Pulmonic Valve Normal PV struct ure and function. Aorta Aortic root size (Sinus of Valsalva diameter) is mildly dilated. 3.8 cm. Pericardium No significant p ericardial effusion is visualized. IVC/SVC/PA/PV/Pleural The estimated RA pressure by IVC dynamics 16-20mmHg . Chambers/Structures Left Atrium LA Volume: 97.09 ml LA Area: 29.78 cm^2 LA Vol. Index: 51 ml/m^2 Left Ventricle LVIDd: 4.53 cm LVEDV:143.73 ml LV Septum Diastolic: 0.91 cm LV PW Diastolic: 0.99 cm LVEDV Palumbo's:87.32 ml LVESV Palumbo's:28.71 ml LVEF Plaumbo's: 67.1 % LVEDVI: 46 ml/m^2 LVESVI: 15 ml/m^2 LVOT Diameter: 2.01 cm Right Atrium RA Vol. (Sngl Plane): 46.78 ml Right Ventricle RVOT VTI: 14.02 cm Aorta Ao Root S of Isabell.: 3.79 cm Doppler/Quantitative Measurements Mitral Valve Mean Velocity: 1.01 m/s Mean Gradient: 5.16 mmHg Are a (continuity): 1.5 cm^2 MV VTI: 34.79 cm MV Jordin. Peak: 1.83 m/s Aortic Valve Peak Velocity: 1.1 m/s Mean Velocity: 0.71 m/s Peak Gradient: 4.86 mmHg Mean Gradient: 2.43 mmHg AV Area (continuity): 2.62 cm^2 AV VTI: 19.91 cm AV DVI: 0.83 LVOT Peak Velocity: 0.96 m/s Pea k Gradient: 3.65 mmHg Mean Velocity: 0.62 m/s Nichole n Gradient: 1.84 mmHg LVOT Diameter: 2.01 cm LVO T VTI: 16.43 cm LVOT Area: 3.17 cm^2 LVO T SV:52.11 ml LVOT CO: 4.9 l/min LVO T CI: 2.59 l/min/m^2 Performing Organization Address City/[facility]/Zipcode Phone Number [facility] ECHO HEARTLAB MKCKESSON CPACS MRSA screen (06/01/2019 10:47 AM CDT)Only the most recent of2 resultswithin the time period is included. Result No MRSA isolated [facility] Specimen Nasal Performing Organization Address [facility] Phone Number [address] [address] CENTER Phosphorus (06/01/2019 10:46 AM CDT)Only the most recent of48 resultswithin the time period is included. Phosphorus 4.3 2.3 - 4.7 mg/dL [facility] Specimen Blood Narrative Performed At General Forecaster ID - CAR[place] F [facility] Performing Organization Address [facility] Phone Number [address] [address] [facility] Prothrombin time/INR (05/31/2019 10:31 AM CDT)Only the most recent of9 results within the time period is included. Protime 17.8 (H) 11.9 - 14.2 seconds [facility] INR 1.5 <=5.9 [facility] Specimen Blood Narrative Performed At Effective 07/24/2018: PT Reference Range [facility] Change New: 11.9-14.2Previous: 11.7-14.7 RECOMMENDED COUMADIN/WARFARIN INR THERAPY RANGES STANDARD DOSE: 2.0-3.0Includes: PROPHYLAXIS for venous thrombosis, systemic embolization; TREATMENT for venous thrombosis and/or pulmonary embolus. HIGH RISK: Target INR is 2.5-3.5 for patients wiht mechanical heart valves. Performing Organization Address City/State/Zipcode Phone Number [address] [address] CENTER Hepatitis panel, acute (05/31/2019 8:24 AM CDT) Hep A IgM Reactive (A) Nonreactive [facility] Hep B C IgM Nonreactive Nonreactive [facility] Hepatitis C Ab Nonreactive Nonreactive [facility] HBsAg Screen Nonreactive Nonreactive [facility] Specimen Blood Narrative Performed At General Forecaster ID - SONIA Lloyd [facility] Performing Organization Address City/[facility] Phone Number [address] [address] C[facility] B-type Natriuretic Factor (BNP) (05/31/2019 8:23 AM CDT)Only the most recent of 4 resultswithin the time period is included. BNP 1,536 (H) 0 - 100 pg/mL [facility] Specimen Blood Narrative Performed At General Forecaster ID - ALMA Richards [facility] Performing Organization Address City/[facility] Phone Number [address] [address] CENTER Vancomycin level, random (05/31/2019 8:23 AM CDT)Only the most recent of2 resultswithin the time period is included. Vancomycin Rm 18.6 ug/mL [facility] Specimen Blood Narrative Performed At Reference Range: No Normals [facility] General Forecaster ID - ALMA Richards Performing Organization Address City/[facility]/Zipcode Phone Number [facility] [address] [place] [address] [place] Blood Culture - Routine (Right Venipuncture) (05/31/2019 8:22 AM CDT)Only the most recent of8 resultswithin the time period is included. Result No growth in 5 days [facility] Specimen Blood Performing Organization Address [facility] Phone Number [facility] [address] [place] [address] [place] ECG 12 lead (05/31/2019 7:21 AM CDT)Only the most recent of9 resultswithin the time period is included. Specimen Narrative Performed At Ventricular Rate 83 BPM GE MUSE Atrial Rate 76 BPM QRS Duration 122 ms Q-T Interval 376 ms QTC Calculation(Bazett) 441 ms R [place] 9 degrees T [place] 168 degrees Atrial fibrillation Left ventricular hypertrophy with QRS wi dening Nonspecific ST and T wave abnormality Abnormal ECG When compared with ECG of 30-MAY-2019 19 :25, No significant change was found Confirmed by MD SANAZ, GETACHEW ([id number]) on 06/02/2019 7 :02:10 AM Procedure Note Interface, External Ris In - 06/02/2019 7:02 AM CDT Ventricular Rate 83 BPM Atrial Rate 76 BPM QRS Duration 122 ms Q-T Interval 376 ms QTC Calculation(Bazett) 441 ms R [place] 9 degrees T [place] 168 degrees Atrial fibrillation Left ventricular hypertrophy with QRS wi dening Nonspecific ST and T wave abnormality Abnormal ECG When compared with ECG of 30-MAY-2019 19 :25, No significant change was found Confirmed by MD YO YOCHAI ([id number]) on 06/02/2019 7:02:10 AM Performing Organization Address City/State/Zipcode Phone Number GE MUSE Urea Nitrogen, random urine (05/31/2019 3:26 AM CDT)Only the most recent of2 resultswithin the time period is included. Urea Nitrogen, Ur 332 mg/dL [facility] Specimen Urine Narrative Performed At Reference Range: No Normals [facility] General Forecaster ID - PIAYA L Performing Organization Address [facility]/Zipcode Phone Number [address] [address] [place] Sodium, random urine (05/31/2019 3:26 AM CDT)Only the most recent of2 results within the time period is included. Sodium Urine 59 meq/L [facility] Specimen Urine Narrative Performed At Reference Range: No Normals [facility] General Forecaster ID - PIAYA L Performing Organization Address [facility] [address] [place] Creatinine, random urine (05/31/2019 3:26 AM CDT)Only the most recent of2 resultswithin the time period is included. Creatinine, Ur 24.9 mg/dL [facility] Specimen Urine Narrative Performed At Reference Range: No Normals [facility] [facility] General Forecaster ID - PIAYA L Performing Organization Address [facility] Phone Number [address] [address] CENTER XR chest 1 view portable / bedside (05/30/2019 9:03 PM CDT)Only the most recent of44 resultswithin the time period is included. Specimen Narrative Performed At FINAL REPORT [facility] History: Right-sided effusion noted on o utside imaging. Comparison: 05/08/2019 Findings: A single view of the chest is submitted. The cardiac silhouette is within normal limits for size. There is atherosclerotic calcification of the aor ta. Sternotomy wires are in place. There is central vascular engorgement an d bilateral interstitial and patchy airspace opacity, similar to prev ious and suggest a combination of atelectasis, edema and sc arring. Pneumonitis should be excluded clinically. There is a moderately sized, loculated h ydropneumothorax on the right, which appears similar when compar ed to previous. A small left pleural effusion is present . There is no acute bony abnormality. A gastrostomy tube bulb overlies the lef t upper quadrant. Signed: Reji Tyler MD Report Verified Date/Time:05/30/2019 22:00:23 Procedure Note Interface, External Ris In - 05/30/2019 10:02 PM CDT FINAL REPORT History: Right-sided effusion noted on o utside imaging. Comparison: 05/08/2019 Findings: A single view of the chest is submitted. The cardiac silhouette is within normal limits for size. There is atherosclerotic calcification of the aor ta. Sternotomy wires are in place. There is central vascular engorgement an d bilateral interstitial and patchy airspace opacity, similar to prev ious and suggest a combination of atelectasis, edema and sc arring. Pneumonitis should be excluded clinically. There is a moderately sized, loculated h ydropneumothorax on the right, which appears similar when compar ed to previous. A small left pleural effusion is present . There is no acute bony abnormality. A gastrostomy tube bulb overlies the lef t upper quadrant. Signed: Reji Tyler MD Report Verified Date/Time: 05/30/2019 2 2:00:23 Performing Organization Address City/State/Zipcode Phone Number [facility]) XR chest 2 views (05/08/2019 12:14 PM CDT) Specimen Narrative Performed At FINAL REPORT [facility] ([facility]) EXAMINATION: PA and lateral views of the chest. COMPARISON: 04/25/2019 CLINICAL HISTORY:Follow-up pleural e ffusion, status post VATS. DISCUSSION: The lungs are well inflated. Interval im provement in right basilar airspace disease relative to 04/25/2019. Large lucency in the right lower hemithorax may represent a bulla o r pneumatocele. No new consolidations. Small bilateral pleural effusions, right larger than left, stable. Right lateral pleural thic kening likely postsurgical. Cardiomediastinal contour is stable with atherosclerotic calcification of the thoracic aorta and multiple median sternotomy wires. No acute osseous abnormality. Gastrostomy catheter partially visualize d projecting over the left upper quadrant. IMPRESSION: Interval improvement in right lower lobe airspace disease with residual bulla or pneumatocele in the ri ght lower chest. Stable small bilateral pleural effusions and probable reactive right pleural change. Signed: Fredi Hua MD Report Verified Date/Time:05/09/2019 08:51:36 Reading Location: [facility] Dennise rodrigo 1 - B01.627 Procedure Note Interface, External Ris In - 05/09/2019 8:53 AM CDT FINAL REPORT EXAMINATION: PA and lateral views of the chest. COMPARISON: 04/25/2019 CLINICAL HISTORY: Follow-up pleural eff usion, status post VATS. DISCUSSION: The lungs are well inflated. Interval im provement in right basilar airspace disease relative to 04/25/2019. Large lucency in the right lower hemithorax may represent a bulla o r pneumatocele. No new consolidations. Small bilateral pleural effusions, right larger than left, stable. Right lateral pleural thic kening likely postsurgical. Cardiomediastinal contour is stable with atherosclerotic calcification of the thoracic aorta and multiple median sternotomy wires. No acute osseous abnormality. Gastrostomy catheter partially visualize d projecting over the left upper quadrant. IMPRESSION: Interval improvement in right lower lobe airspace disease with residual bulla or pneumatocele in the ri ght lower chest. Stable small bilateral pleural effusions and probable reactive right pleural change. Signed: Fredi Hua MD Report Verified Date/Time: 05/09/2019 0 8:51:36 Reading Location: [facility] Dennise wallace 1 - B01.627 Performing Organization Address City/State/Zipcode Phone Number [facility] Prealbumin (04/23/2019 3:53 AM HARDWOOD FLOOR FINISHER) Prealbumin 7 (L) 14 - 45 mg/dL [facility] [place] Specimen Blood Narrative Performed At General Forecaster ID - ELISSA Wallace [facility] Performing Organization Address City/State/Zipcode Phone Number [address] [phone] [place] TRANSFUSION SERVICE REPORT - SCAN (04/19/2019 6:02 PM HARDWOOD FLOOR FINISHER)Only the most recent of6 resultswithin the time period is included. Narrative Performed At This result has an attachment that is no t available. Prepare Leuko-Red RBC (04/18/2019 11:54 PM HARDWOOD FLOOR FINISHER)Only the most recent of6 results within the time period is included. CROSSMATCH COMPATIBLE SAFETRACE TX Unit ABO A Neg SAFETRACE TX UNIT NUMBER [id number] SAFETRACE TX Status TX_TIMEINCHART S[place] Blood Bank Product RED BLOOD CELLS SAFETRACE [place] PRODUCT CODE [id number] [place] Specimen Other Performing Organization Address [facility] Phone Number [place] Transfuse Leuko-Red RBC (04/17/2019 11:41 AM HARDWOOD FLOOR FINISHER)Only the most recent of14 resultswithin the time period is included.aPTT (04/17/2019 3:30 AM HARDWOOD FLOOR FINISHER)Only the most recent of40 resultswithin the time period is included. PTT 41.6 (H) 22.5 - 36.0 seconds [facility] Specimen Blood Performing Organization Address [facility] Phone Number [address] [address] [place] Hemoglobin and hematocrit (04/17/2019 12:27 AM HARDWOOD FLOOR FINISHER)Only the most recent of2 resultswithin the time period is included. Hemoglobin 7.7 (L) 13.7 - 17.5 GM/DL [facility] Hematocrit 23.6 (L) 40.1 - 51.0 % [facility] Specimen Blood Narrative Performed At General Forecaster ID - [id number] [facility] Performing Organization Address [facility]/Zipcode Phone Number [address] [address] [place] Prepare plasma (04/16/2019 11:54 PM HARDWOOD FLOOR FINISHER) Unit ABO A Pos SAFETRACE TX UNIT NUMBER [id number] SAFETRACE TX Status TX_TIMEINCHART SAFETRACE TX Blood Bank Product FFP SAFETRACE TX PRODUCT CODE [id number] SAF[place]ACE [place] Specimen Blood Performing Organization Address [facility] Phone Number SAFETRACE [place] Prepare cryoprecipitate (04/16/2019 11:54 PM HARDWOOD FLOOR FINISHER) Unit ABO A Pos SAFETRACE TX UNIT NUMBER [id number] SAFETRACE TX Status TX_TIMEINCHART SAFETRACE TX Blood Bank Product CRYOPRECIPITATE SAFETRACE TX PRODUCT CODE [id number] SAFETRACE [place] Specimen Blood Performing Organization Address City/[facility] Phone Number S[place] PERIPHERAL VASCULAR REPORT - SCAN (04/16/2019 9:23 PM HARDWOOD FLOOR FINISHER) Narrative Performed At This result has an attachment that is no t available. Calcium, Ionized (04/16/2019 3:28 AM HARDWOOD FLOOR FINISHER)Only the most recent of6 resultswithin the time period is included. Calcium, Ion 1.09 (L) 1.12 - 1.27 mmol/L [facility] pH, Blood 7.44 [facility] Specimen Blood Performing Organization Address [facility] Phone Number [facility] [address] [place] [address] CENTER Central Line (04/15/2019 5:48 PM HARDWOOD FLOOR FINISHER) Narrative Performed At Enoch Chung NP 5:50 PM Central Line Date/Time: 04/15/2019 5:48 PM Performed by: Enoch Chung NP Authorized by: Enoch Chung NP Consent: The procedure was performed in an emergent situation. Site marked: the operative site was iman ed Imaging studies: imaging studies availab le (Ultrasound) Required items: required blood products, implants, devices, and special equipment available Patient identity confirmed: arm band, pr ovided demographic data, hospital-assigned identification number and anonymous protocol, patient vented/unresponsive Time out: Immediately prior to procedure a "time out" was called to verify the correct patient, procedure, equipmen t, academic support specialist and site/side marked as required. Indications: vascular access Preparation: skin prepped with 2% chlorh exidine Skin prep agent dried: skin prep agent completely drie d prior to procedure Sterile barriers: all five maximum steri le barriers used - cap, mask, sterile gown, sterile gloves, and large sterile sheet Hand hygiene: hand hygiene performed dami or to central venous catheter insertion Location details: right femoral Site selection rationale: Vascular acces s for blood and vasopressors suddenly lost, had to place line emergen tly for access Catheter type: triple lumen Catheter size: 7 Fr Pre-procedure: landmarks identified Ultrasound guidance: yes Sterile ultrasound techniques: sterile gel and sterile probe covers were used Number of attempts: 1 Successful placement: yes Post-procedure: line sutured Assessment: blood return through all por ts and free fluid flow Patient tolerance: Patient tolerated the procedure wel l with no immediate complications Immediate Post-Procedure Note Date/Time: 04/15/2019 8:00 AM Assistants to the procedure: None Pre-procedure diagnosis: Hypovolemic Corina ck Post-procedure diagnosis: Hypovolemic sh ock Procedures Performed: Central Line Specimens removed: None Estimated blood loss (mL): None Complications: None Type of anesthesia: None Grafts or Implants: None Venous doppler arm, left (04/15/2019 11:30 AM HARDWOOD FLOOR FINISHER) [facility] ECHO HEAR TLAB [facility] Specimen Impressions Performed At [facility] Left Impression 1. There is total deep venous obstruction in the brachial veins. 2. There is partial deep venous obstruction in the subclavian and axillary veins. 3. There is no deep venous obstruction in the jugular, radial or ulnar veins. 4. There is total superficial venous obstruction in the cephalic vein. 5. The basilic vein could not be visualized due to a line placement. Conclusions Summary Venous duplex imaging and compression of the left upper extremity was performed. The veins were adequately visualized. The left deep venous system was positive with acute thrombosis. The left superficial venous system was positive with acute thrombus . Signature Velocities are measured in cm/s ; Diameters are measured in cm Narrative Performed At LAB - Upper Extremities Veins [facility] Demographics Patient Name JOHN VERGARA Date of Study04/15/2019 [id number] Visit Number [id number] Gender Male Accession Number [id number] Date of Birth1955 [facility] Room [id number] TANIA Patten SonographerAidee Ruggiero, RVTInterpreting Alyssa Cabrera Procedure Type of Study: Veins: Upper Extremities Veins, VENOUS DOPPLER ARM, LEFT. Indications for Study:LUE swelling . Patient Status:CHRISSIE. Study Location:Portable. Technical Quality:Technically Difficult. - Results were reported to:DR DEVYN KUMAR. Risk Factors History of Disease + +----+ + !Diagnosis !Date!Comments ! + +----+ + !History/Risk Factors: !!CHF, AFIB, stroke, COPD, HTN! + +----+ + Procedure Note Interface, External Ris In - 04/16/2019 10:57 AM HARDWOOD FLOOR FINISHER PV LAB - Upper Extremities Veins Demographics Patient Name JOHN VERGARA ate of Study 04/15/2019 A [employer] 63 Visit Number [id number] G amalia Male Accession Number [id number] D ate of 1955 Referring Alicia howard Number [id number] Physician TANIA Mccracken Rechecker Aidee Ruggiero, SABRINAT I nterpreting Pearl Cabrera MD Procedure Type of Study: Veins: Upper Extremities Veins, VENOUS DOPPLER ARM, LEFT. Indications for Study:LUE swelling . Patient Status:CHRISSIE. Study Location:Portable. Technical Quality:Technically Difficult. - Results were reported to:DR CHUNG . Risk Factors History of Disease + +----+------- + !Diagnosis !Date!Comment s ! + +----+------- + !History/Risk Factors: ! !CHF, AF IB, stroke, COPD, HTN ! + +----+------- + Impressions Left Impression 1. There is total deep venous obstructio n in the brachial veins. 2. There is partial deep venous obstruct ion in the subclavian and axillary veins. 3. There is no deep venous obstruction i n the jugular, radial or ulnar veins. 4. There is total superficial venous obs truction in the cephalic vein. 5. The basilic vein could not be visuali zed due to a line placement. Conclusions Summary Venous duplex imaging and compression o f the left upper extremity was performed. The veins were adequately vi sualized. The left deep venous system was positive with acute thrombos is. The left superficial venous system was positive with acute thrombus . Signature Velocities are measured in cm/s ; Diamet ers are measured in cm Performing Organization Address City/State/Zipcode Phone Number [facility] Thromboelastograph (TEG) (04/15/2019 11:28 AM HARDWOOD FLOOR FINISHER) TEG Activated Clotting Time 5.0 4.0 - 7.0 minutes [facility] TEG Fibrinogen Activity 75.9 (H) 61.0 - 73.0 degrees [facility] TEG Platelet Aggregation 69.6 (H) 55.0 - 65.0 MM [facility] TEG Fibrinolysis 0.1 0.0 - 5.0 % [facility] TEG-H Activated Clotting Time 5.1 4.0 - 7.0 minutes [facility] TEG-H Fibrinogen Activity 76.0 (H) 61.0 - 73.0 degrees [facility] TEG-H Platelet Aggregation 65.7 (H) 55.0 - 65.0 MM [facility] TEG-H Fibrinolysis 4.1 0.0 - 5.0 % [facility] Specimen Blood Performing Organization Address City/[facility]/Zipcode Phone Number [place] [phone] [place] [address] CENTER Transfuse plasma (04/15/2019 11:03 AM HARDWOOD FLOOR FINISHER)Only the most recent of2 resultswithin the time period is included.Transfuse cryoprecipitate (04/15/2019 9:22 AM HARDWOOD FLOOR FINISHER) Only the most recent of2 resultswithin the time period is included.Lactic Acid, Arterial (04/15/2019 4:05 AM HARDWOOD FLOOR FINISHER) Lactate, Art 1.2 0.5 - 2.2 mmol/L [facility] Specimen Blood, Arterial Narrative Performed At General Forecaster ANGELI - ELISSA Wallace [facility] Performing Organization Address [facility] Phone Number [address] [address] CENTER PT/aPTT (04/15/2019 1:58 AM HARDWOOD FLOOR FINISHER)Only the most recent of4 resultswithin the time period is included. Protime 19.8 (H) 11.9 - 14.2 seconds [facility] INR 1.7 <=5.9 [facility] PTT 41.1 (H) 22.5 - 36.0 seconds [facility] Specimen Blood Narrative Performed At Effective 07/24/2018: PT Reference Range [facility] Change New: 11.9-14.2Previous: 11.7-14.7 RECOMMENDED COUMADIN/WARFARIN INR THERAPY RANGES STANDARD DOSE: 2.0-3.0Includes: PROPHYLAXIS for venous thrombosis, systemic embolization; TREATMENT for venous thrombosis and/or pulmonary embolus. HIGH RISK: Target INR is 2.5-3.5 for patients wiht mechanical heart valves. Performing Organization Address City/[facility] Phone Number [address] [address] CENTER Fibrinogen (04/15/2019 1:58 AM HARDWOOD FLOOR FINISHER)Only the most recent of2 resultswithin the time period is included. Fibrinogen 177 (L) 225 - 434 mg/dl [facility] Specimen Blood Performing Organization Address [facility] Phone Number [address] [address] CENTER Cortisol (04/15/2019 12:07 AM HARDWOOD FLOOR FINISHER) Cortisol, Total 10.6 3.7 - 19.4 ug/dL [facility] Specimen Blood Narrative Performed At General Forecaster ID - BS [facility] Performing Organization Address [facility] Phone Number [address] [address] CENTER AFB culture + smear (non-sputum) (04/14/2019 6:48 PM HARDWOOD FLOOR FINISHER)Only the most recent of10 resultswithin the time period is included. Result No acid-fast bacilli isolated in [facility] 42 days CENTER AFB Smear No acid fast bacilli seen [facility] Specimen BAL Performing Organization Address [facility] Phone Number [address] [address] CENTER Fungus culture + smear (04/14/2019 6:48 PM HARDWOOD FLOOR FINISHER)Only the most recent of11 resultswithin the time period is included. Result <1+ Ana albicans (A) [facility] Fungus Smear No fungi seen [facility] Specimen BAL Performing Organization Address [facility] Phone Number [address] [address] CENTER SPIN/CONCENTRATION CHARGE (04/14/2019 6:48 PM HARDWOOD FLOOR FINISHER)Only the most recent of4 resultswithin the time period is included. Concentration charged Done [facility] Specimen BAL Performing Organization Address [facility] Phone Number [address] [address] [place] Bronchial culture + gram stain (04/14/2019 6:48 PM HARDWOOD FLOOR FINISHER)Only the most recent of3 resultswithin the time period is included. Result No growth [facility] Gram Stain Result 1+ WBCs [facility] Gram Stain Result No organisms seen [facility] Specimen BAL Performing Organization Address [facility] Phone Number [address] [address] [place] Potassium-Stat Lab (04/14/2019 5:49 PM HARDWOOD FLOOR FINISHER)Only the most recent of3 results within the time period is included. Potassium 3.4 (L) 3.6 - 5.5 meq/L [facility] Specimen Blood, Arterial Performing Organization Address [facility] Phone Number [address] [address] [place] Sodium Na-Stat Lab (04/14/2019 5:49 PM HARDWOOD FLOOR FINISHER)Only the most recent of3 results within the time period is included. Sodium 138 135 - 148 meq/L [facility] Specimen Blood, Arterial Performing Organization Address [facility] Phone Number [address] [address] [place] Glucose-Stat Lab (04/14/2019 5:49 PM HARDWOOD FLOOR FINISHER)Only the most recent of3 resultswithin the time period is included. Glucose 100 70 - 110 mg/dL [facility] Specimen Blood, Arterial Performing Organization Address City[facility] Phone Number [address] [address] [place] HGB/HCT (H&H)-Stat Lab (04/14/2019 5:49 PM HARDWOOD FLOOR FINISHER)Only the most recent of3 resultswithin the time period is included. Hemoglobin 9.0 (L) 13.0 - 16.8 g/dL [facility] Hematocrit 26.0 (L) 40.0 - 50.0 % [facility] Specimen Blood, Arterial Performing Organization Address [facility] Phone Number [address] [address] [place] Anaerobic culture (04/14/2019 5:15 PM HARDWOOD FLOOR FINISHER)Only the most recent of5 results within the time period is included. Result No anaerobes isolated [facility] Specimen Tissue Performing Organization Address [facility] Phone Number [address] [address] [place] Surgically obtained culture + gram stain (04/14/2019 5:15 PM HARDWOOD FLOOR FINISHER)Only the most recent of5 resultswithin the time period is included. Result No growth [facility] Gram Stain Result 1+ WBCs [facility] Gram Stain Result No organisms seen [facility] Specimen Tissue Performing Organization Address [facility] Phone Number [address] [address] [place] Tissue Exam (04/14/2019 4:54 PM HARDWOOD FLOOR FINISHER) Case Report Surgical Pathology Report Case: [id number] [facility] Authorizing Provider:Fernando Esquivel MD Collected: 04/14/[address] [place] [address] [facility] Received:04/15/2019 0933 PERIOPERATIVE SERVICES Pathologist: Gay Puentes MD Specimens: A) - Pleura, PARIETAL PLEURA B) - Lung, Right Lower Lobe, Right lower lobe C) - Lung, Right Middle Lobe, Right middle lobe D) - Lung, Right Upper Lobe, Right upper lobe DIAGNOSIS [facility] ALTH A. PLEURA, RIGHT, PARIETAL PLEURA, DECORTICATION : [facility] - CHRONIC FIBROSING PLEURITIS. - NEGATIVE FOR MALIGNANCY B. LUNG, RIGHT LOWER LOBE, DECORTICATION: - CHRONIC FIBROSING PLEURITIS WITH FOCAL ACU TE INFLAMMATION. - LUNG PARENCHYMA WITH FEATURES OF ORGANIZIN G PNEUMONIA. - NEGATIVE FOR MALIGNANCY C. LUNG, RIGHT MIDDLE LOBE, DECORTICATION: - CHRONIC FIBROSING PLEURITIS. - NEGATIVE FOR MALIGNANCY. D. LUNG, RIGHT UPPER LOBE, DECORTICATION: - CHRONIC FIBROSING PLEURITIS. - NEGATIVE FOR MALIGNANCY. - LUNG PARENCHYMA WITH NO SIGNIFICANT DIAGNO STIC ALTERATION. Signing Pathologist Direct Phone Line: CPT Code(s) 40050 X 4 [facility] ALTH [facility] CLINICAL HISTORY Empyema, right. [facility] SPECIMEN SOURCE A. Pleura. B. Lung, right [facility] lower lobe. C. Lung, right [facility] middle lobe. D. Lung, right upper lobe GROSS DESCRIPTION A. Received in formalin labe led with the patient's name, accession number and "parietal pleura" is a 1.5 x 0.8 x 0.1 cm portion of devlin- pink fibromembranous tissue, which is entirely submitted in A1. [facility] B. Received in formalin labe led with the patient's name, accession number and "right lower lobe" is a 4.0 x 3.0 x 0.3 cm portion of devlin-pink, focally hemorrhagic, fibromembranous tissue, which is entirely submitted in B1-B3. C. Received in formalin labe led with the patient's name, accession number and "lung, right middle lobe" is a 3.5 x 0.5 x 0.3 cm portion of devlin-pink fibromembranous tissue, which is entirely submitted in C1. D. Received in formalin labe led with the patient's name, accession number and "right upper lobe" is a 2.3 x 0.7 x 0.2 cm devlin-pink fibromembranous tissue, which is entirely submitted in D1. PA/ew MICROSCOPIC DESCRIPTION Performed. [facility] ER Gross assessment was [facility] performed at [place], Department of [facility] Pathology, [address] [place] [id number], Technical component was [facility] performed at [place], Department of [facility] Pathology, [address] [place] [id number], Professional component [facility] was performed at [place], Department of [facility] Pathology, [address] [place] [address], Specimen Tissue Tissue - Structure of lower lobe of righ t lung (body structure) Tissue - Structure of middle lobe of rig ht lung (body structure) Tissue - Structure of upper lobe of righ t lung (body structure) Performing Organization Address City/State/Zipcode Phone Number [address] [phone] [place] Cytology (04/14/2019 3:48 PM [employer] FLOOR FINISHER)Only the most recent of2 resultswithin the time period is included. Case Report Medical Cytology Report Case: [id number] [facility] Authorizing Provider:Fernando Esquivel MD Collected: 04/14/2019 1548 [facility] Ordering Location: [facility] Received:04/15/2019 0913 [facility] Pathologist: Sean Piedra MD Specimen:Pleural, Ri ght, Multi loculated pleural effusions DIAGNOSIS RIGHT PLEURAL FLUID (CYTOSPINS): [facility] - NEGATIVE FOR MALIGNANCY [facility] PREDOMINANTLY BLOOD Signing Pathologist Direct Phone Line: CPT Code(s) 39802 [facility] CLINICAL DATA Right multi loculated [facility] pleural effusions, [facility] pneumonia, acute respiratory failure SPECIMEN SOURCE RIGHT PLEURAL FLUID [facility] GROSS DESCRIPTION 750 mls bloody; 4 cytospins CH I [facility] Collected: [id number] [facility] MEDICAL CE NTER Received: [id number] STATEMENT OF ADEQUACY Satisfactory [facility] ER Gross assessment was [facility] performed at [place], Department of [facility] Pathology, [address] [place] [address], Technical component was [facility] performed at [place], Department of [facility] Pathology, [address] [place] [address], Professional component was [facility] performed at [place], Department of [facility] Pathology, [address] [place] [address], Specimen Body Fluid Narrative Performed At This result has an attachment that is no t available. Performing Organization Address City/[facility] Phone Number [address] [address] CENTER Type and screen, automated (04/14/2019 1:01 AM [employer] FLOOR FINISHER)Only the most recent of2 resultswithin the time period is included. ABO/RH AUTOMATED (BEAKER) A NEGATIVE [facility] Ab Scrn NEGATIVE [facility] Specimen Blood Performing Organization Address City/[facility] Phone Number [address] [address] Hepatic function panel (04/13/2019 4:39 AM [employer] FLOOR FINISHER)Only the most recent of3 results within the time period is included. Protein, Total 5.5 (L) 6.0 - 8.3 gm/dL [facility] Albumin 1.8 (L) 3.5 - 5.0 g/dL [facility] Total Bilirubin 1.1 0.2 - 1.2 mg/dL [facility] Bilirubin, Direct 0.7 (H) 0.1 - 0.5 mg/dL [facility] Alkaline Phosphatase 157 (H) 40 - 150 U/L [facility] AST 38 (H) 5 - 34 U/L [facility] ALT 34 6 - 55 U/L [facility] Specimen Blood Narrative Performed At General Forecaster ID - CHELSEY [facility] Performing Organization Address City/[facility]/Zipcode Phone Number [address] [address] CENTER REPORT OF PROCEDURE - ENDOSCOPY URL (04/11/2019 10:15 AM [employer] FLOOR FINISHER) Narrative Performed At This result has an attachment that is no t available. Body fluid culture + gram stain (04/09/2019 12:10 PM [employer] FLOOR FINISHER)Only the most recent of 4 resultswithin the time period is included. Result No growth [facility] Gram Stain Result <1+ WBCs [facility] Gram Stain Result <1+ gram negative rods [facility] Specimen Body Fluid Performing Organization Address City/[facility]/Zipcode Phone Number [address] [address] CENTER XR abdomen / KUB 1 view (04/04/2019 3:58 PM [employer] FLOOR FINISHER)Only the most recent of4 resultswithin the time period is included. Specimen Narrative Performed At FINAL REPORT GE RIS Abdomen date 04/04/2019 Comment:Frontal view of the abdomen demonstrates a feeding tube present with tip noted in the descending duodenum. Signed: Tomasa Foss MD Report Verified Date/Time:04/04/2019 18:03:16 Reading Location: [address] Procedure Note Interface, External Ris In - 04/04/2019 6:05 PM H[employer] FLOOR FINISHER FINAL REPORT Abdomen date 04/04/2019 Comment: Frontal view of the abdomen de monstrates a feeding tube present with tip noted in the descending duodenum. Signed: Tomasa Foss MD Report Verified Date/Time: 04/04/2019 1 8:03:16 Reading Location: [facility] [address] [place] [address] Performing Organization Address City/[facility]/Zipcode Phone Number GE RIS Troponin I (03/31/2019 1:59 PM [employer] FLOOR FINISHER)Only the most recent of11 resultswithin the time period is included. Troponin I 0.20 (HH) 0.00 - 0.03 ng/mL [facility] Specimen Blood Narrative Performed At Troponin I (TnI) levels must be interpreted [facility] in the context of the presenting symptoms and the clinical findings. Elevated TnI levels indicate myocardial damage, but are not specific for ischemic heart disease. Elevated TnI levels are seen in patients with other cardiac conditions (including myocarditis and congestive heart failure), and slight TnI elevations occur in patients with other conditions, including sepsis, renal failure, acidosis, acute neurological disease, and persistent tachyarrhythmia. General Forecaster ID - SONIA Lloyd Performing Organization Address [facility] Phone Number [address] [address] CENTER Lactic acid, venous (03/31/2019 1:59 PM [employer] FLOOR FINISHER)Only the most recent of5 results within the time period is included. Lactate, Venous 1.7 0.5 - 2.2 mmol/L [facility] Specimen Blood Narrative Performed At General Forecaster ID - SONIA Lloyd [facility] Performing Organization Address [facility]/Zipcode Phone Number [address] chest for pulmonary embolus (03/30/2019 11:54 PM [employer] FLOOR FINISHER) Specimen Narrative Performed At FINAL REPORT GE RIS Comparison: CT chest dated 03/17/2019 Indication: 53-year-old male with acute chest pain, hypoxia, and shortness of breath clinically suspiciou s for acute pulmonary embolism. Technique: Precontrast axial images were obtained a t pulmonary trunk level for the purpose of monitoring subsequent IV contrast.Postcontrast axial images of the chest were obtained from a gold the arch level to the lower chest at maximum enhancement of th e pulmonary artery. This exam was performed according to the [facility] dose optimization program which includes automated exposure contro l, adjustment of the mA and/or kV according to the patient size, and/or use of an iterative reconstruction technique. Findings: Vascular: The study is diagnostic to the level of the segmental pulmonary arteries. Pulmonary arteries: No evidence of acute or chronic pulmonary embolism.Specifically, the pulmonary arteries are widely patent, without evidence for filling defect or v ascular cutoff. The pulmonary arteries are normal in size. Thoracic aorta: Aneurysmal dilatation of the ascending thoracic aorta measuring up to 4.9 cm. Pulmonary veins: Normal configuration. Coronary arteries: Normal configuration with mild atherosclerotic calcifications. Systemic veins: No identified thrombus. Right IJ central venous catheter with tip terminating in the SVC . Chest: Lungs/pleura: Moderate paraseptal and ce ntrilobular emphysematous changes. Small right anterior pneumothor ax. Trace gas in the left pleural space with bilateral pleural pig tail catheters noted. Bilateral lower lobe dependent atelectas is. Small bilateral pleural effusions. Tree-in-bud groundglass airsp laura opacities bilaterally however predominantly in the right lower lobe with bronchial wall thickening and scattered mucous plugging . Interlobular septal thickening. Findings may reflect sequela of aspiration however pneumonia should be excluded clinically. Mediastinum/ana lilia: Multiple prominent med iastinal lymph nodes, for example the left lower paratracheal lymp h node measuring 1.3 cm in short axis, unchanged in the interval. T he endotracheal tube terminates approximately 2.0 cm above th e shruthi the level of the T5 vertebral body. Retained secretions in t he bilateral bronchials and trachea.. Thyroid gland is unremarkable. The esophagus is normal in caliber. Heart: The cardiac chambers demonstr ate normal atrioventricular and ventriculoarterial concordance, and syst emic and pulmonary venous return. Global cardiomegaly.No peric ardial effusion. Mitral annular calcifications. Underfilling of the left atrial appendage may be due to timing of contrast however correlate with echocardiogram to exclude thrombus. Mixing artifact in the right atrium limits evaluation for presence of thrombus. Axillae/subcutaneous soft tissues: Multi ple prominent bilateral axillary lymph nodes may be reactive. To cayla body anasarca.. No suspicious subcutaneous nodules or fluid collections. Visualized upper abdomen: Enlarged peris plenic varices. Enteric tube is seen terminating in the gastric antru m. Nodular contour of the liver . Small volume intra-abdominal asc ites. Bones: No aggressive osseous lesions or acute fractures. Multilevel degenerative changes in thoracic spine. Postsurgical changes of a median sternotomy. Acute right anterior lateral fourth through seventh rib fractures with fracture thro ugh the costochondral cartilage of the anterior eighth right r ib. Impression: No evidence for acute or chronic pulmona ry embolism. Ascending thoracic aortic aneurysm. Small right anterior pneumothorax and ti ny focus of gas in the left pleural space with bilateral pleural pig tail catheters in place. Tree-in-bud groundglass airspace opaciti es bilaterally with bronchial wall thickening and scattered mucous plu gging may reflect sequela of aspiration however pneumonia should be e xcluded clinically. Global cardiomegaly. Underfilling of the left atrial appendag e may be due to timing of contrast however correlate with echocard iogram to exclude thrombus. Acute right anterior lateral fourth thr ough seventh rib fractures with fracture through the costochondral cartilage of the anterior eighth right rib. Signed: Gunjan Hanson MD Report Verified Date/Time:03/31/2019 00:25:44 Procedure Note Interface, External Ris In - 03/31/2019 12:29 AM [employer] FLOOR FINISHER FINAL REPORT Comparison: CT chest dated 03/17/2019 Indication: 53-year-old male with acute chest pain, hypoxia, and shortness of breath clinically suspiciou s for acute pulmonary embolism. Technique: Precontrast axial images were obtained a t pulmonary trunk level for the purpose of monitoring subsequent IV contrast. Postcontrast axial images of the chest were obtained from a gold the arch level to the lower chest at maximum enhancement of th e pulmonary artery. This exam was performed according to the [facility] dose optimization program which includes automated exposure contro l, adjustment of the mA and/or kV according to the patient size, and/or use of an iterative reconstruction technique. Findings: Vascular: The study is diagnostic to the level of the segmental pulmonary arteries. Pulmonary arteries: No evidence of acute or chronic pulmonary embolism. Specifically, the pulmonary a rteries are widely patent, without evidence for filling defect or v ascular cutoff. The pulmonary arteries are normal in size. Thoracic aorta: Aneurysmal dilatation of the ascending thoracic aorta measuring up to 4.9 cm. Pulmonary veins: Normal configuration. Coronary arteries: Normal configuration with mild atherosclerotic calcifications. Systemic veins: No identified thrombus. Right IJ central venous catheter with tip terminating in the SVC . Chest: Lungs/pleura: Moderate paraseptal and ce ntrilobular emphysematous changes. Small right anterior pneumothor ax. Trace gas in the left pleural space with bilateral pleural pig tail catheters noted. Bilateral lower lobe dependent atelectas is. Small bilateral pleural effusions. Tree-in-bud groundglass airsp laura opacities bilaterally however predominantly in the right lower lobe with bronchial wall thickening and scattered mucous plugging . Interlobular septal thickening. Findings may reflect sequela of aspiration however pneumonia should be excluded clinically. Mediastinum/ana lilia: Multiple prominent med iastinal lymph nodes, for example the left lower paratracheal lymp h node measuring 1.3 cm in short axis, unchanged in the interval. T he endotracheal tube terminates approximately 2.0 cm above th e shruthi the level of the T5 vertebral body. Retained secretions in t he bilateral bronchials and trachea.. Thyroid gland is unremarkable. The esophagus is normal in caliber. Heart: The cardiac chambers demonstrat e normal atrioventricular and ventriculoarterial concordance, and syst emic and pulmonary venous return. Global cardiomegaly. No pericar dial effusion. Mitral annular calcifications. Underfilling of the left atrial appendage may be due to timing of contrast however correlate with echocardiogram to exclude thrombus. Mixing artifact in the right atrium limits evaluation for presence of thrombus. Axillae/subcutaneous soft tissues: Multi ple prominent bilateral axillary lymph nodes may be reactive. To cayla body anasarca.. No suspicious subcutaneous nodules or fluid collections. Visualized upper abdomen: Enlarged peris plenic varices. Enteric tube is seen terminating in the gastric antru m. Nodular contour of the liver . Small volume intra-abdominal asc ites. Bones: No aggressive osseous lesions or acute fractures. Multilevel degenerative changes in thoracic spine. Postsurgical changes of a median sternotomy. Acute right anterior lateral fourth through seventh rib fractures with fracture thro ugh the costochondral cartilage of the anterior eighth right r ib. Impression: No evidence for acute or chronic pulmona ry embolism. Ascending thoracic aortic aneurysm. Small right anterior pneumothorax and ti ny focus of gas in the left pleural space with bilateral pleural pig tail catheters in place. Tree-in-bud groundglass airspace opaciti es bilaterally with bronchial wall thickening and scattered mucous plu gging may reflect sequela of aspiration however pneumonia should be e xcluded clinically. Global cardiomegaly. Underfilling of the left atrial appendag e may be due to timing of contrast however correlate with echocard iogram to exclude thrombus. Acute right anterior lateral fourth thr ough seventh rib fractures with fracture through the costochondral cartilage of the anterior eighth right rib. Signed: Gunjan Hanson MD Report Verified Date/Time: 03/31/2019 0 0:25:44 Performing Organization Address City/State/Zipcode Phone Number H-art ([facility]) CT brain without IV contrast (03/30/2019 11:54 PM [employer] FLOOR FINISHER)Only the most recent of2 resultswithin the time period is included. Specimen Narrative Performed At FINAL REPORT [facility] ([facility]) EXAM: CT, BRAIN, WITHOUT CONTRAST CLINICAL INDICATION: Cerebral hemorrhage suspected. TECHNIQUE:CT images from skull base to vertex without IV contrast. This exam was performed according to the departmental dose optimization program which includes auto mated exposure control, adjustment of the mA and/or kV according to the patient size, and/or use of an iterative reconstruction techn ique. COMPARISON: 03/24/2019 FINDINGS: Parenchyma: No evidence of acute infarct ion. Chronic lacunar infarction within the anterior right cor tatyana radiata adjacent to the right frontal horn, as before. No hemorr darwin. Patchy areas of hypoattenuation are present in the cereb ral white matter that are nonspecific but compatible with mild chr onic microvascular ischemic changes. Extra-axial Collection:None Ventricular System:No hydrocephalus Osseous Structures:No acute osseous abnormality. Included Orbits: Normal Paranasal Sinuses:Predominantly shital r. There is a small osteoma in the left frontal sinus. Tympanomastoid Cavities:Partial bila teral mastoid effusions, nonspecific in the setting of intubation . Other:None IMPRESSION: 1. No acute abnormality on CT head witho ut contrast. 2. Remote lacunar infarction in the righ t amador radiata and background of mild chronic deep white ma tter ischemic changes. If there is persistent clinical concern for intracranial pathology, MR examination is recommended for furthe r characterization. Signed: Tomasa Luque MD Report Verified Date/Time:03/31/2019 04:20:24 Procedure Note Interface, External Ris In - 03/31/2019 4:22 AM [employer] FLOOR FINISHER FINAL REPORT EXAM: CT, BRAIN, WITHOUT CONTRAST CLINICAL INDICATION: Cerebral hemorrhage suspected. TECHNIQUE: CT images from skull base to vertex without IV contrast. This exam was performed according to the departmental dose optimization program which includes auto mated exposure control, adjustment of the mA and/or kV according to the patient size, and/or use of an iterative reconstruction techn ique. COMPARISON: 03/24/2019 FINDINGS: Parenchyma: No evidence of acute infarct ion. Chronic lacunar infarction within the anterior right cor tatyana radiata adjacent to the right frontal horn, as before. No hemorr darwin. Patchy areas of hypoattenuation are present in the cereb ral white matter that are nonspecific but compatible with mild chr onic microvascular ischemic changes. Extra-axial Collection: None Ventricular System: No hydrocephalus Osseous Structures: No acute osseous ab normality. Included Orbits: Normal Paranasal Sinuses: Predominantly clear. There is a small osteoma in the left frontal sinus. Tympanomastoid Cavities: Partial bilate ral mastoid effusions, nonspecific in the setting of intubation . Other: None IMPRESSION: 1. No acute abnormality on CT head witho ut contrast. 2. Remote lacunar infarction in the righ t amador radiata and background of mild chronic deep white ma tter ischemic changes. If there is persistent clinical concern for intracranial pathology, MR examination is recommended for furthe r characterization. Signed: Tomasa Luque MD Report Verified Date/Time: 03/31/2019 0 4:20:24 Performing Organization Address City/State/Zipcode Phone Number [facility] POCT-HEMATOCRIT (03/30/2019 8:53 PM H[employer] FLOOR FINISHER) POC-Hematocrit 28 (L)Comment: TESTED AT 40 - 50 % [facility] [address] [facility] [address] Specimen Blood Performing Organization Address City/[facility]/Zipcode Phone Number [address] [address] [place] POCT-HEMOGLOBIN (03/30/2019 8:53 PM HARDWOOD FLOOR FINISHER) POC-Hemoglobin 9.5 (L)Comment: TESTED AT 13.0 - 16.8 g/dL [address] [address]SFPWPZ AT [address] [address] Specimen Blood Performing Organization Address City/[facility]/Zipcode Phone Number [address] [address] [place] POCT-GLUCOSE (03/30/2019 8:53 PM HARD[employer] FLOOR FINISHER) POC-Glucose 249 (H)Comment: TESTED AT 70 - 110 mg/dL [address] [address] Specimen Blood Performing Organization Address [facility] Phone Number [address] [address] [place] POC-Sodium (03/30/2019 8:53 PM HARDWOOD FLOOR FINISHER) POC-Sodium 147Comment: TESTED AT [facility] 135 - 148 meq/L [address] [address] Specimen Blood Performing Organization Address City/[facility]/Zipcode Phone Number [address] [address] [place] POC-Potassium (03/30/2019 8:53 PM HARDWOOD FLOOR FINISHER) POC-Potassium 4.1Comment: TESTED AT [facility] 3.6 - 5.5 meq/L [address] [address] Specimen Blood Performing Organization Address [facility]/Zipcode Phone Number [address] [address] [place] POC-Calcium ionized (03/30/2019 8:53 PM HARDWOOD FLOOR FINISHER) POC-Calcium Ionized 1.63 ()Comment: 1.12 - 1.27 mmol/L [facility] TESTED AT [address] [address] Specimen Blood Performing Organization Address [facility] Phone Number [address] [address] [place] POC-Blood gases, arterial (03/30/2019 8:53 PM HARDWOOD FLOOR FINISHER) Temp. Celsius-POC 36.1 [facility] FIO2-POC 100Comment: TESTED AT [address] [address] pH, Arterial-POC 7.320 (L) 7.350 - 7.450 [facility] PCO2, Arterial-POC 61.8 (H) 35.0 - 45.0 mm Hg [facility] PO2, Arterial-POC 409.0 (H) 80.0 - 90.0 mm Hg [facility] SO2, Arterial-POC 100.0 (H) 96.0 - 97.0 % [facility] HCO3, Arterilal-POC 32.2 (H) 21.0 - 29.0 meq/L [facility] BE, Arterial-POC 6.0 (H) -2.0 - 3.0 meq/L [facility] Specimen Blood Performing Organization Address City/[facility]/Zipcode Phone Number [address] [address] [place] ECHOCARDIOGRAM REPORT - SCAN (03/26/2019 9:11 PM HARDWO[employer] FLOOR FINISHER) Narrative Performed At This result has an attachment that is no t available. IR Drainage Catheter Change (03/26/2019 7:30 PM HARDWO[employer] FLOOR FINISHER) Specimen Narrative Performed At FINAL REPORT Cerelink Fluoroscopic guided replacement of a right chest tube. History: Patient's right chest tube has been retracted and is poorly draining.. Modality: Fluoroscopy Sedation: None Anesthesia:Two percent Lidocaine without epinephrine. Approach:Existing right chest tube Estimated blood loss:< 5 cc. Specimen: None. header set up operator: Nato Dang MD. Senior Service Aide: Lauren. Fluoroscopy Time: 0.5 min. Reference Air Kerma (Ka, r): 17.2 mGy. Technique: Informed written consent was obtained. D iscussion of risks, benefits, and alternatives were made with the kevin ent's family. The patient's family expressed understanding and agree d to proceed.A universal timeout was performed prior to starting the procedure.All elements maximal sterile barrier technique was ut ilized for this procedure, including utilization of sterile scrub s olution for skin prep, a large sterile sheet to cover the areas o f the patient that were not prepped, and hand hygiene, mask, head co vering, and sterile gown for performing radiologist and scrub technol ogist. A guidewire was inserted through the pat ient's existing right chest tube under fluoroscopic control and into the right pleural space. The existing chest tube was then removed ove r the guidewire. A new 8.5 [place] Cook multipurpose drainage cathet er was advanced over the guidewire and into the right pleural spa ce. The guidewire was removed and the pigtail was locked. Serosanguine ous fluid was aspirated. The catheter was connected to a atrium pleur a vac and secured to patient's skin with 2-0 silk. The patien t tolerated the procedure well without evidence of immediate compe tition. Impression: Technically successful and uncomplicated fluoroscopic guided exchange of a right pleural pigtail drainage catheter. Signed: Nato Dang MD Report Verified Date/Time:03/28/2019 14:57:26 Reading Location: [place] [address] Angio Body Reading Room Procedure Note Interface, External Ris In - 03/28/2019 2:59 PM [employer] FINISHER FINAL REPORT Fluoroscopic guided replacement of a ri ght chest tube. History: Patient's right chest tube has been retracted and is poorly draining.. Modality: Fluoroscopy Sedation: None Anesthesia: Two percent Lidocaine witho ut epinephrine. Approach: Existing right chest tube Estimated blood loss: < 5 cc. Specimen: None. header set up operator: Nato Dang MD. Senior Service Aide[facility]. Fluoroscopy Time: 0.5 min. Reference Air Kerma (Ka, r): 17.2 mGy. Technique: Informed written consent was obtained. D iscussion of risks, benefits, and alternatives were made with the kevin ent's family. The patient's family expressed understanding and agree d to proceed. A universal timeout was performed prior to starting the procedure. All elements maximal sterile barrier technique was ut ilized for this procedure, including utilization of sterile scrub s olution for skin prep, a large sterile sheet to cover the areas o f the patient that were not prepped, and hand hygiene, mask, head co vering, and sterile gown for performing radiologist and scrub technol ogist. A guidewire was inserted through the pat ient's existing right chest tube under fluoroscopic control and into the right pleural space. The existing chest tube was then removed ove r the guidewire. A new 8.5 [place] Cook multipurpose drainage cathet er was advanced over the guidewire and into the right pleural spa ce. The guidewire was removed and the pigtail was locked. Serosanguine ous fluid was aspirated. The catheter was connected to a atrium pleur a vac and secured to patient's skin with 2-0 silk. The patien t tolerated the procedure well without evidence of immediate compe tition. Impression: Technically successful and uncomplicated fluoroscopic guided exchange of a right pleural pigtail drainage cath eter. Signed: Nato Dang MD Report Verified Date/Time: 03/28/2019 1 4:57:26 Reading Location: [facility] B1 P048 Angio Body Reading Room Performing Organization Address City/State/Zipcode Phone Number [facility] ([facility]) 2D Echo W/Doppler(CW/PW/Color) (03/25/2019 7:04 PM [employer]OR FINISHER) Ejection Fraction [facility] ECHO HEAR TLAB [employer] [facility] Specimen Narrative Performed At Transthoracic Echocardiography Report (T TE) [facility] ECHO HEARTLAB MKCKSellbr[facility]ON [facility] Demographics Patient JOHN Valdes Date of Study03/25/2019 Gender Male Visit [id number] Race Luis Carlos tran [id number] Number Date of 1955 Referring PhysicianJerald Christensen Age 63 year(s) SonographerAbimael muro Interpreting Carlos Alberto Estrada MD Physician Procedure Type of Study TTE procedure:2DECHO W DOPPLER(CW/PW/COLOR) (STAT) Indications:Hypotension or hemodynamic instability. Clinical History HGB 10.6 HCT 33.2 % AFIB, COPD, HTN, BYPASS 1970, MV VALVULOPLASTY, AVR (TISSUE), HFpEF, CHRONIC PLEURAL EFFUSION, BILATERAL CHEST TUBES, INTUBATED AND SUPINE Contrast Medium: Definity. Amount - 3 ml Height: 69 inches Weight: 107.05 kg (236 lbs) BSA: 2.22 m^2 BMI: 34.85 kg/m^2 HR: 109 bpm BP: 90/58 mmHg Summary 1. The left ventricle is chamber size (by vol index) is normal with no evidence of LV hypertrophy. All of the LV segments are hyperkinetic . LVEF by Palumbo's method of disk assessment is increased (>70%) . LV diastolic function is indeterminate. 2. RV not well visualized. Normal size and function in limited views. 3. LA size is moderately enlarged . 4. s/p bioprosthetic AVR well seated with expected gradients (peak velocity 1.2 m/s, mean gradient 2 mmHg). Trace aortic regurgitation. 5. Moderate mitral annular calcification. Mitral valve mean gradient 5 mmHg at heart rate of 120 bpm. 6. Unable to estimate peak systolic PA pressure; inadequate TR velocity signal. Previous Study In comparison with the prior exam on 03/20/2019 there are no significant changes. Signature Findings Rhythm/BPIrregular rhythm during the exam. Left Ventricle The left ventricle is chamber size (by vol index) is normal. No evidence of LV hypertrophy. Al l of the LV segments are hyperkinetic . LV EF by Palumbo's method of disk assessmen t is in creased (>70%) . LV diastolic function is indeterminate. Left AtriumLA size is moderately enlarged . Right VentricleRV not well visualized. Normal size and function in li mited views. Right Atrium RA size is normal. Aortic Valve s/p bioprosthetic AVR well seated with expec annie gr adients (peak velocity 1.2 m/s, mean gra dient 2 mm Hg). Trace aortic regurgitation. Mitral Valve Moderate mitral annular calcification. Mi tral valve mean gradient 5 mmHg at heart rate of 12 0 bpm. Tricuspid ValveThe tricuspid valve is not well visualized. Un able to estimate peak systolic PA pressu re; in adequate TR velocity signal. Pulmonic Valve PV is not well visualized. A trace of pulmonary regurgitation. No evidence of PV stenosis. AortaAortic root size (SInus of Valsalva diameter) i s no rmal . PericardiumNo significant pericardial effusion is visualized. IVC/SVC/PA/PV/PleuralThe inferior vena cava size is increased . Chambers/Structures Left Atrium LA Volume: 94.64 ml LA Area: 27.88 cm^2 LA Vol. Index: 43 ml/m^2 Left Ventricle LVIDd: 3.88 cm LVEDV:97.2 ml LV Septum Diastolic: 0.99 cm LV PW Diastolic: 0.95 cm LVEDV Palumbo's:53.37 ml LVESV Palumbo's:11.86 ml LVEF Palumbo's: 77.8 % LVEDVI: 24 ml/m^2 LVES : 5 ml/m^2 LVOT Diameter: 2.02 cm Right Atrium RA Area: 15 .25 cm^2 Vena Cava IVC Expirium: 2.49 cm Doppler/Quantitative Measurements Mitral Valve Mean Velocity: 1.1 m/s Mean Gradient: 5.7 mmHgArea (continuity): 1.73 cm^2 MV VTI: 34 .75 cm MV Jordin. Peak: 1.67 m/s Tissue Doppler E' Lateral Velocity: 0.08 m/s Aortic Valve Peak Velocity: 1.21 m/sMean Velocity: 0.73 m/s Peak Gradient: 5.86 mmHg Mean Gradient: 2.63 mmHg AV Area (continuity): 3.1 cm^2 AV VTI: 19.37 cm AV DVI: 0.97 LVOT Peak Velocity: 1.04 m/s Peak Gradient: 4.34 mmHg Mean Velocity: 0.74 m/s Mean Gradient: 2.43 mmHg LVOT Diameter: 2.02 cmLVOT VTI: 18.77 cm LVOT Area: 3.2 cm^2 LVOT SV:60.12 ml LVOT CO: 6.55 l/min LVOT CI: 2.95 l/min/m^2 Tricuspid Valve Procedure Note Interface, External Ris In - 03/26/2019 8:35 AM [employer] FINISHER Transthoracic Echocardiography Report (TTE) Demographics Patient Name JOHN VERGARA Date of Study 03/25/2019 Gender Male Visit Number [id number] Race Unknown Room Num [facility] 7102 Number Date of 1955 Eileen perdomo Physician Jerald Christensen Age 63 year(s) Sonograp her Abimael Jimenez [facility] dyan Carlos Alberto Estrada MD Physicia n Procedure Type of Study TTE procedure:2DECHO W DOPPLE R(CW/PW/COLOR) (STAT) Indications:Hypotension or hemodynamic i nstability. Clinical History HGB 10.6 HCT 33.2 % AFIB, COPD, HTN, BYPASS 1970, MV VALVULO PLASTY, AVR (TISSUE), HFpEF, CHRONIC PLEURAL EFFUSION, BILATERAL CHEST TUBES, INTUBATED AND SUPINE Contrast Medium: Definity. Amount - 3 ml Height: 69 inches Weight: 107.05 kg (236 lbs) BSA: 2.22 m^2 BMI: 34.85 kg/m^2 HR: 109 bpm BP: 90/58 mmHg Summary 1. The left ventricle is chamber size ( by vol index) is normal with no evidence of LV hypertrophy. All of the LV segments are hyperkinetic . LVEF by Palumbo's method of disk assess ment is increased (>70%) . LV diastolic function is indeterminate. 2. RV not well visualized. Normal size and function in limited views. 3. LA size is moderately enlarged . 4. s/p bioprosthetic AVR well seated wi th expected gradients (peak velocity 1.2 m/s, mean gradient 2 mmHg) . Trace aortic regurgitation. 5. Moderate mitral annular calcificatio n. Mitral valve mean gradient 5 mmHg at heart rate of 120 bpm. 6. Unable to estimate peak systolic PA pressure; inadequate TR velocity signal. Previous Study In comparison with the prior exam on there are no significant changes. Signature Findings Rhythm/BP Irregular rhythm during the exam. Left Ventricle The left ventric le is chamber size (by vol index) is normal. No evidence of L V hypertrophy. All of the LV se gments are hyperkinetic . LVEF by Palumbo' s method of disk assessment is increased (>70%) . LV diastolic fun ction is indeterminate. Left Atrium LA size is moder ately enlarged . Right Ventricle RV not well visu alized. Normal size and function in limited views. Right Atrium RA size is viviana l. Aortic Valve s/p bioprostheti c AVR well seated with expected gradients (peak velocity 1.2 m/s, mean gradient 2 mmHg). Trace aor tic regurgitation. Mitral Valve Moderate mitral annular calcification. Mitral valve nichole n gradient 5 mmHg at heart rate of 120 bpm. Tricuspid Valve The tricuspid va lve is not well visualized. Unable to estima te peak systolic PA pressure; inadequate TR ve locity signal. Pulmonic Valve PV is not well v isualized. A trace of pulmo nary regurgitation. No evidence of P V stenosis. Aorta Aortic root size (SInus of Valsalva diameter) is normal . Pericardium No significant p ericardial effusion is visualized. IVC/SVC/PA/PV/Pleural The inferior kali a cava size is increased . Chambers/Structures Left Atrium LA Volume: 94.64 ml LA Area: 27.88 cm^2 LA Vol. Index: 43 ml/m^2 Left Ventricle LVIDd: 3.88 cm LVEDV:97.2 ml LV Septum Diastolic: 0.99 cm LV PW Diastolic: 0.95 cm LVEDV Palumbo's:53.37 ml LVESV Palumbo's:11.86 ml LVEF Palumbo's: 77.8 % LVEDVI: 24 ml/m^2 LVESVI: 5 ml/m^2 LVOT Diameter: 2.02 cm Right Atrium RA Area: 15.25 cm^2 Vena Cava IVC Expirium: 2.49 cm Doppler/Quantitative Measurements Mitral Valve Mean Velocity: 1.1 m/s Mean Gradient: 5.7 mmHg Area (continuity): 1.73 cm^2 MV VTI: 34.75 cm MV Jordin. Peak: 1.67 m/s Tissue Doppler E' Lateral Velocity: 0.08 m/s Aortic Valve Peak Velocity: 1.21 m/s Mean Velocity: 0.73 m/s Peak Gradient: 5.86 mmHg Mean Gradient: 2.63 mmHg AV Area (continuity): 3.1 cm^2 AV VTI: 19.37 cm AV DVI: 0.97 LVOT Peak Velocity: 1.04 m/s Pea k Gradient: 4.34 mmHg Mean Velocity: 0.74 m/s Nichole n Gradient: 2.43 mmHg LVOT Diameter: 2.02 cm LVO T VTI: 18.77 cm LVOT Area: 3.2 cm^2 LVO T SV:60.12 ml LVOT CO: 6.55 l/min LVO T CI: 2.95 l/min/m^2 Tricuspid Valve Performing Organization Address City/State/Zipcode Phone Number [facility] ECHO HEARTLAB [facility] CT chest without IV contrast (03/25/2019 6:00 PM [employer]LOOR FINISHER)Only the most recent of2 resultswithin the time period is included. Specimen Narrative Performed At FINAL REPORT [facility] ([facility]) CT of the Chest, abdomen and pelvis date d 03/25/2019 COMPARISON: March 20, 2019 Clinical information: Pleural effusion Comment:Axial images of the chest, a bdomen, and pelvis were obtained from thoracic inlet to the pubi c symphysis without GI or intravenous contrast. This exam was performed according to our departmental dose-optimization program, which include s automated exposure control, adjustment of the mA and/or kV according to patient size and/or use of interactive reconstruction technique. Heart is normal in size. Ascending thora cic aorta is enlarged measuring 5.2 cm in size. Descending tho racic aorta measures 2.6 cm. Atherosclerotic calcification is seen in the thoracic aorta and coronary arteries. Great vessels are unr emarkable. No adenopathy in the mediastinum or perihilar region. Tra becky and mainstem bronchi are patent. There is small left pleural effusion and moderate right pleural effusion. A pigtail chest tube has been placed on the left. There is interval decrease in the amount of flow bilateral pleural effusion more pronounced on the left. Subsegmental atelectasis is seen in righ t and both lower lobes. The rest of the lungs are clear. Liver is normal in size. Spleen is minim ally enlarged measuring 12.1 x 5.7 x 10.9 cm. Enlarged collateral vei ns are seen in the splenic hilum. There is splenorenal shunt. No fo saleem lesion is seen in the liver or the spleen. Gallbladder is cont racted. No gallstone or biliary dilatation is noted. Pancreas an d adrenals are unremarkable. Both kidneys are normal in size.No h ydronephrosis, hydroureter, or urolithiasis is noted. A 5 mm hemorrhagi c cyst is seen in the upper pole right kidney. The small and large bowel are unremarkab le. Appendix is not visualized. Prostate is normal in size. The urinary bladder is contracted. There is nonspecific soft tissue strandi ng in the presacral pelvis. Atherosclerotic calcification is seen in the abdominal aorta and bilateral iliac arteries. Impression: 1. Interval decrease in the amount of bi lateral pleural effusion. 2. Splenomegaly. 3. Portal hypertension with splenorenal shunt. 4. Soft tissue stranding in the presacra l pelvis. 5. No loculated fluid collection in the abdomen or pelvis to suggest abscess. 5. Ascending thoracic aortic aneurysm. Signed: Tomasa Foss MD Report Verified Date/Time:03/25/2019 18:26:29 Reading Location: [facility] C013Y CT Body R [facility] Room Procedure Note Interface, External Ris In - 03/25/2019 6:29 PM [employer] F[employer] FINISHER FINAL REPORT CT of the Chest, abdomen and pelvis date d 03/25/2019 COMPARISON: March 20, 2019 Clinical information: Pleural effusion Comment: Axial images of the chest, abd omen, and pelvis were obtained from thoracic inlet to the pubi c symphysis without GI or intravenous contrast. This exam was performed according to our departmental dose-optimization program, which include s automated exposure control, adjustment of the mA and/or kV according to patient size and/or use of interactive reconstruction technique. Heart is normal in size. Ascending thora cic aorta is enlarged measuring 5.2 cm in size. Descending tho racic aorta measures 2.6 cm. Atherosclerotic calcification is seen in the thoracic aorta and coronary arteries. Great vessels are unr emarkable. No adenopathy in the mediastinum or perihilar region. Tra becky and mainstem bronchi are patent. There is small left pleural effusion and moderate right pleural effusion. A pigtail chest tube has been placed on the left. There is interval decrease in the amount of flow bilateral pleural effusion more pronounced on the left. Subsegmental atelectasis is seen in righ t and both lower lobes. The rest of the lungs are clear. Liver is normal in size. Spleen is minim ally enlarged measuring 12.1 x 5.7 x 10.9 cm. Enlarged collateral vei ns are seen in the splenic hilum. There is splenorenal shunt. No fo saleem lesion is seen in the liver or the spleen. Gallbladder is cont racted. No gallstone or biliary dilatation is noted. Pancreas an d adrenals are unremarkable. Both kidneys are normal in size. No hyd ronephrosis, hydroureter, or urolithiasis is noted. A 5 mm hemorrhagi c cyst is seen in the upper pole right kidney. The small and large bowel are unremarkab le. Appendix is not visualized. Prostate is normal in size. The urinary bladder is contracted. There is nonspecific soft tissue strandi ng in the presacral pelvis. Atherosclerotic calcification is seen in the abdominal aorta and bilateral iliac arteries. Impression: 1. Interval decrease in the amount of bi lateral pleural effusion. 2. Splenomegaly. 3. Portal hypertension with splenorenal shunt. 4. Soft tissue stranding in the presacra l pelvis. 5. No loculated fluid collection in the abdomen or pelvis to suggest abscess. 5. Ascending thoracic aortic aneurysm. Signed: Tomasa Foss MD Report Verified Date/Time: 03/25/2019 1 8:26:29 Reading Location: [facility] B1 C013Y CT Body R eading Room Performing Organization Address City/State/Zipcode Phone Number [facility] ([facility]) CT abdomen/pelvis without iv contrast (03/25/2019 6:00 PM H[employer] FLOOR FINISHER) Specimen Narrative Performed At FINAL REPORT [facility] ([facility]) CT of the Chest, abdomen and pelvis date d 03/25/2019 COMPARISON: March 20, 2019 Clinical information: Pleural effusion Comment:Axial images of the chest, a bdomen, and pelvis were obtained from thoracic inlet to the pubi c symphysis without GI or intravenous contrast. This exam was performed according to our departmental dose-optimization program, which include s automated exposure control, adjustment of the mA and/or kV according to patient size and/or use of interactive reconstruction technique. Heart is normal in size. Ascending thora cic aorta is enlarged measuring 5.2 cm in size. Descending tho racic aorta measures 2.6 cm. Atherosclerotic calcification is seen in the thoracic aorta and coronary arteries. Great vessels are unr emarkable. No adenopathy in the mediastinum or perihilar region. Tra becky and mainstem bronchi are patent. There is small left pleural effusion and moderate right pleural effusion. A pigtail chest tube has been placed on the left. There is interval decrease in the amount of flow bilateral pleural effusion more pronounced on the left. Subsegmental atelectasis is seen in righ t and both lower lobes. The rest of the lungs are clear. Liver is normal in size. Spleen is minim ally enlarged measuring 12.1 x 5.7 x 10.9 cm. Enlarged collateral vei ns are seen in the splenic hilum. There is splenorenal shunt. No fo saleem lesion is seen in the liver or the spleen. Gallbladder is cont racted. No gallstone or biliary dilatation is noted. Pancreas an d adrenals are unremarkable. Both kidneys are normal in size.No h ydronephrosis, hydroureter, or urolithiasis is noted. A 5 mm hemorrhagi c cyst is seen in the upper pole right kidney. The small and large bowel are unremarkab le. Appendix is not visualized. Prostate is normal in size. The urinary bladder is contracted. There is nonspecific soft tissue strandi ng in the presacral pelvis. Atherosclerotic calcification is seen in the abdominal aorta and bilateral iliac arteries. Impression: 1. Interval decrease in the amount of bi lateral pleural effusion. 2. Splenomegaly. 3. Portal hypertension with splenorenal shunt. 4. Soft tissue stranding in the presacra l pelvis. 5. No loculated fluid collection in the abdomen or pelvis to suggest abscess. 5. Ascending thoracic aortic aneurysm. Signed: Tomasa Foss MD Report Verified Date/Time:03/25/2019 18:26:29 Reading Location: [facility] C013Y CT Body R eading Room Procedure Note Interface, External Ris In - 03/25/2019 6:29 PM H[employer] FLOOR FINISHER FINAL REPORT CT of the Chest, abdomen and pelvis date d 03/25/2019 COMPARISON: March 20, 2019 Clinical information: Pleural effusion Comment: Axial images of the chest, abd omen, and pelvis were obtained from thoracic inlet to the pubi c symphysis without GI or intravenous contrast. This exam was performed according to our departmental dose-optimization program, which include s automated exposure control, adjustment of the mA and/or kV according to patient size and/or use of interactive reconstruction technique. Heart is normal in size. Ascending thora cic aorta is enlarged measuring 5.2 cm in size. Descending tho racic aorta measures 2.6 cm. Atherosclerotic calcification is seen in the thoracic aorta and coronary arteries. Great vessels are unr emarkable. No adenopathy in the mediastinum or perihilar region. Tra becky and mainstem bronchi are patent. There is small left pleural effusion and moderate right pleural effusion. A pigtail chest tube has been placed on the left. There is interval decrease in the amount of flow bilateral pleural effusion more pronounced on the left. Subsegmental atelectasis is seen in righ t and both lower lobes. The rest of the lungs are clear. Liver is normal in size. Spleen is minim ally enlarged measuring 12.1 x 5.7 x 10.9 cm. Enlarged collateral vei ns are seen in the splenic hilum. There is splenorenal shunt. No fo saleem lesion is seen in the liver or the spleen. Gallbladder is cont racted. No gallstone or biliary dilatation is noted. Pancreas an d adrenals are unremarkable. Both kidneys are normal in size. No hyd ronephrosis, hydroureter, or urolithiasis is noted. A 5 mm hemorrhagi c cyst is seen in the upper pole right kidney. The small and large bowel are unremarkab le. Appendix is not visualized. Prostate is normal in size. The urinary bladder is contracted. There is nonspecific soft tissue strandi ng in the presacral pelvis. Atherosclerotic calcification is seen in the abdominal aorta and bilateral iliac arteries. Impression: 1. Interval decrease in the amount of bi lateral pleural effusion. 2. Splenomegaly. 3. Portal hypertension with splenorenal shunt. 4. Soft tissue stranding in the presacra l pelvis. 5. No loculated fluid collection in the abdomen or pelvis to suggest abscess. 5. Ascending thoracic aortic aneurysm. Signed: Tomasa Foss MD Report Verified Date/Time: 03/25/2019 1 8:26:29 Reading Location: [facility] B1 C013Y CT Body R ding Room Performing Organization Address City/State/Zipcode Phone Number GE RIS Urinalysis w/Microscopic + Reflex to Culture (03/25/2019 9:08 AM [employer] F[employer]OR FINISHER)Only the most recent of2 resultswithin the time period is included. Color, UA Yellow [facility] Clarity, UA Hazy [facility] Specific [place], UA 1.018 1.001 - 1.035 [facility] pH, UA 5.5 5.0 - 8.0 [facility] Protein, UA 50 mg/dL (A) Negative [facility] Glucose, UA Negative Negative [facility] Ketones, UA Negative Negative [facility] Bilirubin, UA Negative Negative [facility] Blood, UA Small (A) Negative [facility] Nitrite, UA Negative Negative [facility] Leukocytes, UA Large (A) Negative [facility] Urobilinogen, UA 6.0 (H) 0.2 - 1.0 mg/dL [facility] RBC, UA <1 /HPF [facility] WBC, UA 54 /HPF [facility] Bacteria, UA Few [facility] Mucus Few [facility] Squam Epithel, UA <1 /HPF [facility] Hyaline Casts, UA 1 /LPF [facility] Specimen Source [facility] Specimen Urine Narrative Performed At General Forecaster ID - [[id number]] [facility] General Forecaster ID - [email or web address] Performing Organization Address City/[facility]/Zipcode Phone Number [address] [address] [place] Sputum Culture + Gram Stain (03/25/2019 9:08 AM [employer]OR FINISHER)Only the most recent of2 resultswithin the time period is included. Result See comment [facility] Gram Stain Result 4+ WBCs [facility] Gram Stain Result 0-5 epithelial cells [facility] Gram Stain Result No organisms seen [facility] Specimen Sputum Narrative Performed At 2+ Yeast [facility] No Normal respiratory rigo present Performing Organization Address City/State/Zipcode Phone Number [address] [id number] [place] Urine culture (03/25/2019 9:08 AM HARDWOOD FLOOR FINISHER)Only the most recent of2 resultswithin the time period is included. Result No growth [facility] Specimen Urine Performing Organization Address City/State/Zipcode Phone Number [facility] [address] [place] [address] CENTER EEG EXTENDED MONITORING 40 - 60 MINUTES (03/24/2019 11:23 AM HARDWOOD FLOOR FINISHER) Specimen Narrative Performed At Date(s) of EE03/24/2019 GE RIS DATE OF REPORT:03/24/2019 ACC: [id number] EEG Number: [id number] Test Location: Inpatient ICU Start time: 03/24/2019 10:42 Stop time: 03/24/2019 11:23 ICD-10: R56.9 CPT Code: 80838 HISTORY: 63 y.o. male with hypertens ion, diastolic heart failure, chronic kidney disease who was transferr ed to [facility] for effusions and remains altered with concern for subclin ical status epilepticus. MEDICATIONS THAT COULD AFFECT EEG:De xmedetomidine TECHNICAL SUMMARY: This is a digital video-EEG recorded wit h 32 input channels reviewed with bipolar and referential montages us ing the modified combinatorial system nomenclature. DESCRIPTION OF RECORD: During the maximally stimulated state, t he background is symmetric and predominately populated with 2-6 Hz activity. There was no posterior dominant rhythm seen. The EEG background is spontaneously reactive and reactive to external stimul ation. Poorly formed symmetric sleep structures are sporadica lly seen. There are occasional generalized broad based disch arges with frontocentral predominance that occur with a periodic pattern of 1 to 1.5 cycles per second. SIGNIFICANT VIDEO EVENTS: None SIGNIFICANT ELECTROCARDIOGRAM EVENTS: Ir regularly irregular, average HR 85. HV: Hyperventilation was not performed. PHOTIC STIMULATION: Photic stimulation w as done from 1-33 Hz; no photic driving was seen; photoparoxysmal responses were absent. IMPRESSION: This is an abnormal video EE G due to: 1) Generalized s lowing of background rhythms, mild-moderate. 2) Occasional, generalized per iodic discharges (1 - 1.5 cycles per second) CLINICAL CORRELATION: Generalized slowin g as seen in this record is consistent with an etiology non-specific mild to moderate encephalopathy. Generalized periodic dis charges are a non-specific findings or cortical irritability and ca n be seen in the setting of ischemia, inflammation, aftermath of ear lier seizure activity, other BOWLING ALLEY ATTENDANT insult, or toxic-metabolic derangeme nts. An EEG without epileptiform discharges does not exclude the possibili ty of epilepsy. If the clinical suspicion of epilepsy re spencer, consider additional EEG recordings. Nando Metz MD Neurophysiology Fellow Elia Martinez M.D., FACNS, FAAN, CALIN Syed Professor of Neurology, [facility] Medicine Director, [facility] Comprehensiv e Epilepsy Center Head, [facility] at [place], [place] Procedure Note Interface, External Ris In - 03/24/2019 12:32 PM HARDWOOD FLOOR FINISHER Date(s) of EE03/24/2019 DATE OF REPORT: 03/24/2019 ACC: [id number] EEG Number: [id number] Test Location: Inpatient ICU Start time: 03/24/2019 10:42 Stop time: 03/24/2019 11:23 ICD-10: R56.9 CPT Code: 13947 HISTORY: 63 y.o. male with hypertensio n, diastolic heart failure, chronic kidney disease who was transferr ed to [facility] for effusions and remains altered with concern for subclin ical status epilepticus. MEDICATIONS THAT COULD AFFECT EEG: Dexm edetomidine TECHNICAL SUMMARY: This is a digital video-EEG recorded wit h 32 input channels reviewed with bipolar and referential montages us ing the modified combinatorial system nomenclature. DESCRIPTION OF RECORD: During the maximally stimulated state, t he background is symmetric and predominately populated with 2-6 Hz activity. There was no posterior dominant rhythm seen. The EEG background is spontaneously reactive and reactive to external stimul ation. Poorly formed symmetric sleep structures are sporadica lly seen. There are occasional generalized broad based disch arges with frontocentral predominance that occur with a periodic pattern of 1 to 1.5 cycles per second. SIGNIFICANT VIDEO EVENTS: None SIGNIFICANT ELECTROCARDIOGRAM EVENTS: Ir regularly irregular, average HR 85. HV: Hyperventilation was not performed. PHOTIC STIMULATION: Photic stimulation w as done from 1-33 Hz; no photic driving was seen; photoparoxysmal responses were absent. IMPRESSION: This is an abnormal video EE G due to: 1) Generalized slowing of ba ckground rhythms, mild-moderate. 2) Occasional, generalized p eriodic discharges (1 - 1.5 cycles per second) CLINICAL CORRELATION: Generalized slowin g as seen in this record is consistent with an etiology non-specific mild to moderate encephalopathy. Generalized periodic dis charges are a non-specific findings or cortical irritability and ca n be seen in the setting of ischemia, inflammation, aftermath of ear lier seizure activity, other BOWLING ALLEY ATTENDANT insult, or toxic-metabolic derangeme nts. An EEG without epileptiform discharges does not exclude the possibility of epilepsy. If the clinical suspicion of epilepsy re spencer, consider additional EEG recordings. Nando Metz MD Neurophysiology Fellow Elia Martinez M.D., FACNS, FAAN, CALIN S Professor of Neurology, [facility] Director, [facility] Head, [facility] at [place], [place] Performing Organization Address City/State/Zipcode Phone Number GE RIS Manual Differential (03/23/2019 5:58 AM HARDWOOD FLOOR FINISHER)Only the most recent of2 results within the time period is included. % Neutros 93 % [facility] % Lymphs 4 % [facility] % Monos 2 % [facility] % Atypical Lymphs 1 (H) 0 - 0 % [facility] # Neutros 22.69 (H) 1.78 - 5.38 K/ul [facility] # Lymphs 0.98 (L) 1.32 - 3.57 K/ul [facility] # Monos 0.49 0.30 - 0.82 K/uL [facility] # Atypical Lymphs 0.24 (H) 0.00 - 0.00 K/uL [facility] Total Counted 100 [facility] WBC Morphology Normal [facility] Platelet Morphology Normal [facility] Anisocytosis 1+ few [facility] Poikilocytes 1+ few [facility] Oval[facility] 1+ few [facility] Rei Cells 1+ few [facility] Artifact Present [facility] Platelet Conc Adequate [facility] Specimen Blood Narrative Performed At General Forecaster ID - Mariela Overholt [facility] User comments: Slide comments: Performing Organization Address City/State/[facility] Phone Number [facility] [address] [place] [phone] [address] Body fluid cell count with differential (03/22/2019 2:37 PM HARDWOOD FLOOR FINISHER)Only the most recent of3 resultswithin the time period is included. Appearance Bloody (A) Clear [facility] Color Red (A) Colorless, Straw [facility] RBCs 88,000 (H) <=1 /cu mm [facility] Adjusted WBC Count 36,367 (H) <=5 /cu mm [facility] Lining Cells 364 (H) <=1 /cu mm [facility] % Segs 85 % [facility] % Lymphs 4 % [facility] % Monos 10 % [facility] % Eos 1 % [facility] % Baso 0 % [facility] Container Body Fluid EDTA Tube [facility] Specimen Body Fluid Performing Organization Address City/State/Zipcode Phone Number [facility] [address] [place] [address] [address] Triglycerides, Pleural Fluid (03/22/2019 2:36 PM HARDWOOD FLOOR FINISHER)Only the most recent of3 resultswithin the time period is included. TRIGLYCERIDES, PLEURAL 35 See Note: mg/dL [facility] FLUID Comment: INCORPORATED Reference Range: CHYLOUS: >110 NONCHYLOUS:<50 SAMPLE SLIGHTLY LIPEMIC. SAMPLE MODERATELY HEMOLYZED. Specimen Body Fluid Narrative Performed At Performing Lab [facility] E[facility] [employer] [address] [place] [address] Alia Luna MD, PhD, SOTO Performing Organization Address [facility] Phone Number [facility] [employer] [place], [place] [address] INCORPORATED [address] Protein, Total, Pleural Fluid (03/22/2019 2:36 PM HARDWOOD FLOOR FINISHER)Only the most recent of3 resultswithin the time period is included. PROTEIN, TOTAL, PLEURAL FLUID 2.6 [facility] Specimen Body Fluid Performing Organization Address [facility] [place] [address] [place] [address] [address] Lactate Dehydrogenase (LD), Pleural Fluid (03/22/2019 2:36 PM HARDWOOD FLOOR FINISHER)Only the most recent of3 resultswithin the time period is included. Lactate Dehydrogenase >1300 See Note: U/L [facility] (LD), Pleural Fluid Comment: INCORPORATED Reference Range: TRANSUDATE:<113 EXUDATE: >113 SAMPLE SLIGHTLY LIPEMIC. SAMPLE MODERATELY HEMOLYZED. This fluid sample was received hemolyzed in the laboratory. Even minimal hemolysis causes significant increase in LD due to high levels of this enzyme in red cells. Please interpret result with cauti on. RESULTS CONFIRMED BY REPEAT ANALYSIS. Specimen Body Fluid Narrative Performed At Performing Lab [facility] [employer] [address] [address] [place] [address] Alia Luna MD, PhD, SOTO Performing Organization Address [facility] Phone Number [facility] [employer] [place] [address] [employer]ORPORATED [address] [address] Glucose Pleural Fluid (03/22/2019 2:36 PM HARDWOOD FLOOR FINISHER)Only the most recent of3 results within the time period is included. Glucose, Pleural Fluid 29 mg/dL [facility] Comment: INCORPORATED SAMPLE SLIGHTLY LIPEMIC. SAMPLE MODERATELY HEMOLYZED. Reference range approximates that found in serum . Specimen Body Fluid Narrative Performed At Performing Lab [facility] E[facility] [employer] [facility] [place] [address] [address] [place] [address] Alia Luna MD, PhD, SOTO Performing Organization Address City/[facility] Phone Number [facility] [place] [address] pH, body fluid (03/22/2019 2:36 PM HARDWOOD FLOOR FINISHER)Only the most recent of3 resultswithin the time period is included. pH, Body Fluid 7.5 [facility] PH FLUID TYPE Body fluid [facility] Comment: Reference range: Reference ranges have not been established on is type of fluid for this test. Specimen Body Fluid Narrative Performed At Performing Lab [facility] *RYLEY Prong [place] [employer] [place], [address] [place] [address] Dr. GuillenHOMEWORTH, [place] Pearl Kent MD, PhD Performing Organization Address [facility] Phone Number [facility] [place] [address] [employer]OR[employer]ATED [address] [address] Adenosine Deaminase, Fluid (03/22/2019 2:36 PM HARDWOOD FLOOR FINISHER)Only the most recent of2 resultswithin the time period is included. Adenosine Deaminase 39.6 (H) <9.2 U/L [facility] Comment: INCORPORATED REFERENCE INTERVAL: ADENOSINE DEAMINASE Tuberculosismean 92 .1 U/L Metastatic malignancies mean 23.3 U/L Mesotheliomas mean 34.9 U/L Pulmonary embolismmean 23.8 U/L Lymphomamea n 64.3 U/L This test was performed using a kit that has not been cleared or approved by the FDA.The analytical performance characteristics of this test have been determined by [facility] [place]This test s hould not be used for diagnosis without confirmation b y other medically established means. Specimen Body Fluid Narrative Performed At Performing Lab [employer] [facility] [address] [employer] [place], [address] [place] [address] Dr. Guillen [place] Pearl Kent MD, PhD Performing Organization Address [facility] Phone Number [facility] [place] [address] INCORPORATED [address] [address] Albumin Pleural Fluid (03/22/2019 2:35 PM HARDWOOD FLOOR FINISHER)Only the most recent of2 results within the time period is included. Albumin, Pleural Fluid 0.8 [facility] Specimen Body Fluid Performing Organization Address City/State/Zipcode Phone Number [facility], [place], [place] [address] INCORPORATED [address] [facility] Legionella culture (03/22/2019 2:32 PM HARDWOOD FLOOR FINISHER) Result No Legionella species isolated C [facility] Specimen BAL Performing Organization Address City/State/Zipcode Phone Number [facility] [address] [place] [address] CENTER US drainage chest with tube insertion (03/21/2019 6:25 PM HARDWOOD FLOOR FINISHER) Specimen Narrative Performed At FINAL REPORT [facility] Ultrasound guided insertion of bilatera l pigtail chest tube catheters. History: Bilateral loculated pleural effusions. Modality: Ultrasound Sedation: None Anesthesia:Two percent Lidocaine without epinephrine. Approach:Bilateral mid axillary line Estimated blood loss:< 5 cc. Specimen: Left bedside. header set up operator: Nato Dang MD. Senior Service Aide: None. Technique: Informed written consent was obtained. D iscussion of risks, benefits, and alternatives were made with the kevin ent's family. The patient's family expressed understanding and agree d to proceed.A universal timeout was performed prior to starting the procedure.All elements maximal sterile barrier technique was ut ilized for this procedure, including utilization of sterile scrub s olution for skin prep, a large sterile sheet to cover the areas o f the patient that were not prepped, and hand hygiene, mask, head co vering, and sterile gown for performing radiologist and scrub technol ogist. Ultrasound of the patient's right chest demonstrated a large loculated right pleural effusion. The [facility] axillary line was marked, prepped with correcting, draped in the u sual sterile fashion. After local anesthesia was achieved with lidoc tiera small skin incision was made along the right midaxillary line at a low intercostal space. Under direct ultrasound guidance an [address] [facility] pigtail drain was advanced into the right pleural effusion under direct ultrasound guidance. Once the drain was within the pleural space the catheter was advanced off the trocar and the pigt ail was formed within the pleural fluid. The catheter was secured to the patient's skin with 2-0 silk and connected to a atrium pleur a vac. Attention was then turned to the patient 's left chest and an 8 [place] skater pigtail drain was placed in a sim ilar fashion and connected to the atrium pleura. The patient tolerated the procedure well without evidence of immediate competition. Impression: Technically successful and uncomplicated placement of bilateral pigtail chest tubes under ultrasound guidance. Signed: Nato Dang MD Report Verified Date/Time:03/21/2019 19:48:47 Reading Location: [place] [address] Angio Body Reading Room Procedure Note Interface, External Ris In - 03/21/2019 7:50 PM HARDWOOD FLOOR FINISHER FINAL REPORT Ultrasound guided insertion of bilatera l pigtail chest tube catheters. History: Bilateral loculated pleural eff usions. Modality: Ultrasound Sedation: None Anesthesia: Two percent Lidocaine witho ut epinephrine. Approach: Bilateral mid axillary line Estimated blood loss: < 5 cc. Specimen: Left bedside. header set up operator: Nato Dang MD. Senior Service Aide: None. Technique: Informed written consent was obtained. D iscussion of risks, benefits, and alternatives were made with the kevin ent's family. The patient's family expressed understanding and agree d to proceed. A universal timeout was performed prior to starting the procedure. All elements maximal sterile barrier technique was ut ilized for this procedure, including utilization of sterile scrub s olution for skin prep, a large sterile sheet to cover the areas o f the patient that were not prepped, and hand hygiene, mask, head co vering, and sterile gown for performing radiologist and scrub technol ogist. Ultrasound of the patient's right chest demonstrated a large loculated right pleural effusion. The [facility] axillary line was marked, prepped with correcting, draped in the u sual sterile fashion. After local anesthesia was achieved with lidoc tiera small skin incision was made along the right midaxillary line at a low intercostal space. Under direct ultrasound guidance an 8 Fr ench skater pigtail drain was advanced into the right pleural effusion under direct ultrasound guidance. Once the drain was within the pleural space the catheter was advanced off the trocar and the pigt ail was formed within the pleural fluid. The catheter was secured to the patient's skin with 2-0 silk and connected to a atrium pleur a vac. Attention was then turned to the patient 's left chest and an 8 [place] skater pigtail drain was placed in a sim ilar fashion and connected to the atrium pleura. The patient tolerated the procedure well without evidence of immediate competition. Impression: Technically successful and uncomplicated placement of bilateral pigtail chest tubes under ultrasound es dance. Signed: Nato Dang MD Report Verified Date/Time: 03/21/2019 1 9:48:47 Reading Location: [facility] B1 P048 Angio Body Reading Room Performing Organization Address City/State/Zipcode Phone Number RIS Respiratory Panel [facility] (03/21/2019 8:50 AM HARDWOOD FLOOR FINISHER) Human Metapneumovirus Not detected Not detected, [facility] [employer] [facility] Rhinovirus Not detected Not detected, [facility] [employer] [facility] Influenza A Not detected Not detected, [facility] [employer] [facility] INFLUENZA A (NO SUBTYPE) [facility] Influenza [facility] subtype H1 [facility] Influenza A Subtype H3 [facility] Influenza A Subtype H1-2009 [facility] Influenza B Not detected Not detected, [facility] [employer] [facility] Respiratory Syncytial Virus Not detected Not detected, [facility] Equivocal [facility] Parainfluenza Virus 1 Not detected Not detected, [facility] Equivocal [facility] Parainfluenza Virus 2 Not detected Not detected, [facility] Equ[employer] [facility] Parainfluenza virus 3 Not detected Not detected, [facility] Equ[employer] [facility] Parainfluenza Virus 4 Not detected Not detected, [facility] [employer] [facility] Adenovirus Not detected Not detected, [facility] [employer] [facility] Coronavirus 229E Not detected Not detected, [facility] Equ[employer]ocal [facility] Coronavirus HKU1 Not detected Not detected, [facility] [facility] Coronavirus NL63 Not detected Not detected, [facility] Equ[employer] [facility] Coronavirus OC43 Not detected Not detected, [facility] Equivocal [facility] Bordetella Pertussis Not detected Not detected, [facility] Equivocal [facility] Chlamydophila Pneumoniae Not detected Not detected, [facility] Equivocal [facility] Mycoplasma Pneumoniae Not detected Not detected, [facility] Equ[employer] [facility] Specimen Nasopharyngeal Narrative Performed At Other viruses and bacteria not targeted by [facility] this PCR panel cannot be excluded; therefore clinical correlation and follow up of serology, culture results, and other molecular studies is required. The results are not intended to be used as the sole means for clinical diagnosis or patient management decisions. This sample was tested at the [facility] using the [employer] FilmArray Respiratory Panel. It is FDA cleared and has been verified and approved by the [facility] for clinical use on nasopharyngeal swab specimens. The performance of the FilmArray RP has not been established in individuals who received influenza vaccine.Recent administration of a nasal influenza vaccine may cause false positive results for Influenza A and/or Influenza B. Performing Organization Address City/[facility]/Zipcode Phone Number [address] [address] CENTER Reticulocyte count (03/21/2019 8:50 AM HARDWOOD FLOOR FINISHER) % Retic 1.9 (H) 0.5 - 1.8 % [facility] Specimen Blood Narrative Performed At General Forecaster ID - [id number] [facility] ICAL CENTER Performing Organization Address City/[facility]/Zipcode Phone Number [address] [address] CENTER Rapid Influenza A&B Screen (03/21/2019 8:50 AM HARDWOOD FLOOR FINISHER) Rapid Influenza A Antigen Negative Negative, Inconclusive [facility] Rapid influenza B Antigen Negative Negative, Inconclusive [facility] Specimen Nasal Performing Organization Address City/[facility] Phone Number [address] [address] CENTER Vitamin B12 and Folate (03/21/2019 8:49 AM HARDWOOD FLOOR FINISHER)Only the most recent of2 results within the time period is included. Vitamin B12 >2000 (H) 213 - 816 pg/mL [facility] Folate 17.3 >=7.0 ng/mL [facility] Specimen Blood Narrative Performed At General Forecaster ID - ELISSA Wallace [facility] Performing Organization Address [facility] Phone Number [address] [address] CENTER Iron, TIBC, % sat. (without ferritin) (03/21/2019 8:49 AM HARDWOOD FLOOR FINISHER) Iron 39.0 (L) 40.0 - 160.0 ug/dL [facility] [facility] [place] TIBC 113 (L) 250 - 450 ug/dL [facility] Iron % Saturation 35 20 - 55 % [facility] [place] Specimen Blood Narrative Performed At General Forecaster ID - ELISSA Wallace [facility] Performing Organization Address City[facility] Phone Number [address] [address] CENTER Lactate dehydrogenase (LDH) (03/21/2019 8:49 AM [employer] FLOOR FINISHER) LDH 300 (H) 125 - 220 U/L [facility] Specimen Blood Narrative Performed At General Forecaster ID - ELISSA Wallace [facility] Performing Organization Address City/[facility]/Zipcode Phone Number [address] [address] [place] Ferritin (03/21/2019 8:49 AM [employer] FLOOR FINISHER) Ferritin 1,076 (H) 5 - 275 ng/mL [facility] Specimen Blood Narrative Performed At General Forecaster ID - ELISSA Wallace [facility] Performing Organization Address City/State/Zipcode Phone Number [facility] [address] [place] [address] [place] ECHOCARDIOGRAM REPORT - SCAN (03/20/2019 9:22 PM [employer] FLOOR FINISHER) Narrative Performed At This result has an attachment that is no t available. 2D Echo W/Doppler(CW/PW/Color) (03/20/2019 11:05 AM [employer]OR FINISHER) Ejection Fraction [facility] ECHO HEAR TLAB [facility] Specimen Narrative Performed At Transthoracic Echocardiography Report (T TE) [facility] ECHO HEARTLAB [facility] Demographics Patient JOHN Valdes Date of Study03/20/2019 Gender Male Visit [id number] Race Unk nown [id number] Number Date of 1955 Referring Physician Age 63 year(s) SonographNapoleon alvarado RDCS Interpreting Ziyad Bentley MD Physician Procedure Type of Study TTE procedure:2DECHO W DOPPLER(CW/PW/COLOR) (STAT) Indications:Sustained or non sustained Afib, SVT or VT. Clinical History AFIB;COPD;HTN;BYPASS 1970;MV VALVULOPLASTY;AVR(TISSUE) Height: 69 inches Weight: 92.08 kg (203 lbs) BSA: 2.08 m^2 BMI: 29.98 kg/m^2 HR: 110 bpm BP: 118/78 mmHg Summary The left ventricle is chamber size (by PSLAX dimension) is normal (male - LVIDd 4.2-5.8cm) . Septal motion is abnormal, likely related to prior cardiac surgery . All of the other LV segments contract normally . Estimated LVEF by qualitative assessment is normal (>60%) . Degree of diastolic dysfunction (LAP assessment) is inconclusive due to annular calcification . Mild aortic stenosis. AoV area at rest by continuity equation is in the range of 1.7cm2. Preserved stroke volum e. There is mild aortic regurgitation. Mild mitral regurgitation. 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 MV area by continuity is in the range of 2.0 cm2 Unable to estimate peak systolic PA pressure; inadequate TR velocity signal. Previous Study In comparison with the prior exam on 01/22/2019 there are no significant changes. Signature Findings Left Ventricle The left ventricle is chamber size (by PSLAX di mension) is normal (male - LVIDd 4.2-5.8 cm) . Mi ld septal hypertrophy. Se ptal motion is abnormal, likely related to prior ca rdiac surgery . All of the other LV segm ents co ntract normally . Gl obal LV systolic function normal . Es timated LVEF by qualitative assessment i s normal (> 60%) . De gree of diastolic dysfunction (LAP asses sment) is in conclusive due to annular calcification . Left AtriumLA size is moderately enlarged (42-48 ml/m2) . Right VentricleNormal RV size and function. Right Atrium RA cavity size is enlarged but severity assessment is unreliable . Aortic Valve [id number] AoV cusp calcification. Mi ld aortic stenosis. AoV area at rest by co ntinuity equation is in the range of 1.7 cm2. Pr eserved stroke volume. Th ere is mild aortic regurgitation. Mitral Valve Mild MV leaflet thickening. Se giles mitral annular and subvalvular ca lcification. Mi ld mitral regurgitation. Mi ld mitral stenosis secondary to MAC. MV area by co ntinuity is in the range of 2.0 cm2 Tricuspid ValveTV is not well visualized. Un able to estimate peak systolic PA pressu re; in adequate TR velocity signal. Pulmonic Valve Normal PV structure and function. PericardiumNo significant pericardial effusion is visualized. IVC/SVC/PA/PV/PleuralThe estimated RA pressure by IVC dynamics 16-20mmHg . A left pleural effusion is noted. Chambers/Structures Left Atrium LA Volume: 96.7 mlLA Area: 23.47 cm^2 LA Vol. Index: 46 ml/m^2 Left Ventricle LVIDd: 4.11 cm LVEDV:74.5 ml LVIDs: 3.06 cm LVESV:28.77 ml LV Septum Diastolic: 1.18 cm LVEF 2D Cube: 58.5 % LV PW Diastolic: 1.07 cm LV FS: 25.6 % LVOT Diameter: 1.94 cm LVEF: 61.4 % Doppler/Quantitative Measurements Mitral Valve Mean Velocity: 1.18 m/s Mean Gradient: 6.42 mmHg Area (continuity): 2.01 cm^2 MV VTI: 32.85 cm MV Jordin. Peak: 1.74 m/s Aortic Valve Peak Velocity: 2.13 m/sMean Velocity: 1.42 m/s Peak Gradient: 18.16 mmHgMean Gradient: 9.51 mmHg AV Area (continuity): 1.66 cm^2 AV VTI: 39.87 cm AV DVI: 0.56 LVOT Peak Velocity: 1.26 m/s Peak Gradient: 6.31 mmHg Mean Velocity: 0.82 m/s Mean Gradient: 3.29 mmHg LVOT Diameter: 1.94 cmLVOT VTI: 22.39 cm LVOT Area: 2.96 cm^2LVOT SV:66.15 ml LVOT CO: 7.28 l/min LVOT CI: 3.5 l/min/m^2 Procedure Note Interface, External Ris In - 03/20/2019 3:29 PM [employer] FINISHER Transthoracic Echocardiography Report (TTE) Demographics Patient Name JOHN VERGARA Date of Study 03/20/2019 Gender Male Visit Number [id number] Race Unknown Room Num [facility] 7102 Number Date of 1955 Referrin conor Physician Age 63 year(s) Sonograp her Gabrielle Melhem RDCS [facility] Ziyad Bentley MD Physicia n Procedure Type of Study TTE procedure:2DECHO W LIANG R(CW/PW/COLOR) (STAT) Indications:Sustained or non sustained A fib, SVT or VT. Clinical History AFIB;COPD;HTN;BYPASS 1970;MV VALVULOPLAS TY;AVR(TISSUE) Height: 69 inches Weight: 92.08 kg (203 lbs) BSA: 2.08 m^2 BMI: 29.98 kg/m^2 HR: 110 bpm BP: 118/78 mmHg Summary The left ventricle is chamber size (by PSLAX dimension) is normal (male - LVIDd 4.2-5.8cm) . Septal motion is abn ormal, likely related to prior cardiac surgery . All of the other LV s egments contract normally . Estimated LVEF by qualitative assessmen t is normal (>60%) . Degree of diastolic dysfunction (LAP as sessment) is inconclusive due to annular calcification . Mild aortic stenosis. AoV area at rest by continuity equation is in the range of 1.7cm2. Preserved stroke volum e. There is mild aortic regurgitation. Mild mitral regurgitation. 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 MV area by continuity is in the range of 2.0 cm2 Unable to estimate peak systolic PA pre ssure; inadequate TR velocity signal. Previous Study In comparison with the prior exam on there are no significant changes. Signature Findings Left Ventricle The left ventric le is chamber size (by PSLAX dimension) is no rmal (male - LVIDd 4.2-5.8cm) . Mild septal hype rtrophy. Septal motion is abnormal, likely related to prior cardiac surgery . All of the other LV segments contract normall y . Global LV systol ic function normal . Estimated LVEF b y qualitative assessment is normal (>60%) . Degree of diasto lic dysfunction (LAP assessment) is inconclusive due to annular calcification . Left Atrium LA size is moder ately enlarged (42-48 ml/m2) . Right Ventricle Normal RV size a nd function. Right Atrium RA cavity size i s enlarged but severity assessment is unreliable . Aortic Valve [id number] AoV cusp calcification. Mild aortic sten osis. AoV area at rest by continuity equat ion is in the range of 1.7cm2. Preserved stroke volume. There is mild ao rtic regurgitation. Mitral Valve Mild MV leaflet thickening. Severe mitral an nular and subvalvular calcification. Mild mitral regu rgitation. Mild mitral sten osis secondary to MAC. MV area by continuity is in the range of 2.0 cm2 Tricuspid Valve TV is not well v isualized. Unable to estima te peak systolic PA pressure; inadequate TR ve locity signal. Pulmonic Valve Normal PV struct ure and function. Pericardium No significant p ericardial effusion is visualized. IVC/SVC/PA/PV/Pleural The estimated RA pressure by IVC dynamics 16-20mmHg . A left pleural e ffusion is noted. Chambers/Structures Left Atrium LA Volume: 96.7 ml LA Area: 23.47 cm^2 LA Vol. Index: 46 ml/m^2 Left Ventricle LVIDd: 4.11 cm LVEDV:74.5 ml LVIDs: 3.06 cm LVESV:28.77 ml LV Septum Diastolic: 1.18 cm LVEF 2D Cube: 58.5 % LV PW Diastolic: 1.07 cm LV FS: 25.6 % LVOT Diameter: 1.94 cm LVEF: 61.4 % Doppler/Quantitative Measurements Mitral Valve Mean Velocity: 1.18 m/s Mean Gradient: 6.42 mmHg Area (continuity): 2.01 cm^2 MV V TI: 32.85 cm MV Jordin. Peak: 1.74 m/s Aortic Valve Peak Velocity: 2.13 m/s Mean Velocity: 1.42 m/s Peak Gradient: 18.16 mmHg Mean Gradient: 9.51 mmHg AV Area (continuity): 1.66 cm^2 AV VTI: 39.87 cm AV DVI: 0.56 LVOT Peak Velocity: 1.26 m/s Pea k Gradient: 6.31 mmHg Mean Velocity: 0.82 m/s Nichole n Gradient: 3.29 mmHg LVOT Diameter: 1.94 cm LVO T VTI: 22.39 cm LVOT Area: 2.96 cm^2 LVO T SV:66.15 ml LVOT CO: 7.28 l/min LVO T CI: 3.5 l/min/m^2 Performing Organization Address City/[facility]/Zipcode Phone Number [facility] ECHO HEARTLAB [facility], manual (03/20/2019 5:48 AM [employer] FLOOR FINISHER) ABO Grouping [facility] Rh Factor NEG [facility] Specimen Blood Performing Organization Address [facility] Phone Number [address] [address] TSH/Free T4 If Indicated (03/20/2019 3:00 AM [employer] F[employer]OR FINISHER)Only the most recent of3 resultswithin the time period is included. TSH 3.06 0.35 - 4.94 uIU/mL [facility] [place] Specimen Blood Narrative Performed At General Forecaster ID - BS [facility] Performing Organization Address [facility] Phone Number [address] [address] CENTER Hemoglobin A1c (03/20/2019 3:00 AM [employer] FLOOR FINISHER)Only the most recent of2 resultswithin the time period is included. Hemoglobin A1C 6.2 (H) 4.3 - 6.1 % [facility] Specimen Blood Performing Organization Address [facility] Phone Number [address] [address] CENTER Lipid panel (03/20/2019 2:59 AM [employer] FLOOR FINISHER)Only the most recent of2 resultswithin the time period is included. Triglycerides 60Comment: Specimen slightly mg/dL [facility] hemolyzed [facility] [place] Cholesterol 55Comment: Specimen slightly mg/dL [facility] hemolyzed [facility] HDL 15 mg/dL [facility] LDL Calculated 28 mg/dL [facility] Specimen Blood Narrative Performed At Triglyceride Reference Range: [facility] Low Risk <150 [id number] High Risk 200-499 Very High Risk>=500 Cholesterol Reference Range: Low Risk <200 [id number] High Risk>240 HDL Cholesterol Reference Range: Low Risk >=60 High Risk <40 LDL Cholesterol Reference Range: Optimal<100 Near [id number] [id number] Cpux201-857 Very High >=190 General Forecaster ID - SANDRA Richards Specimen slightly icteric Performing Organization Address City/[facility]/Zipcode Phone Number [address] [address] [place] Strep pneumoniae antigen (03/20/2019 2:23 AM [employer] FLOOR FINISHER) Strep pneumoniae Presumptive negative Presumptive negative [facility] Antigen for pneumococcal for pneumococcal [facility] pneumonia - see comment pneumonia - see CENTER comment, Presumptive negative for pneumococcal meningitis - see comment Specimen Urine Narrative Performed At Presumptive negative for pneumococcal [facility] pneumonia, suggesting no current or recent pneumococcal infection. Infection due to S. pneumoniae cannot be ruled out since the antigen present in the sample may be below the detection limit of the test. Performing Organization Address City/[facility] Phone Number [address] [address] [place] Legionella antigen, urine (03/20/2019 2:23 AM [employer] FLOOR FINISHER) Legionella Urine Antigen Negative - see [facility] commentComment: Negative [facility] for L. pneumophila serogroup 1 antigen, suggesting no recent or current infection with this serogroup. Legionellosis cannot be ruled out since other serogroups and species may cause disease. Specimen Urine Performing Organization Address [facility]/Zipcode Phone Number [address] [address] CENTER Protein, random urine (03/20/2019 2:22 AM [employer] FLOOR FINISHER) Protein, Urine 72 (H) 0 - 14 mg/dL [facility] Specimen Urine Narrative Performed At General Forecaster ID - BS [facility] Performing Organization Address [facility]/Zipcode Phone Number [address] [phone] [place] Osmolality, urine (03/20/2019 2:22 AM [employer] FLOOR FINISHER) Osmolality, Ur 540 40-1,400 mOsm/kg [facility] Specimen Urine Performing Organization Address [facility]/Zipcode Phone Number [address] [address] [place] Chloride, random urine (03/20/2019 2:22 AM [employer] FLOOR FINISHER) ChlorideUr <20 meq/L [facility] Specimen Urine Narrative Performed At Reference Range: No Normals [facility] [place] General Forecaster ID - BS Performing Organization Address [facility] Phone Number [address] [address] [place] ECHOCARDIOGRAM REPORT - SCAN (01/23/2019 9:21 PM [employer] FLOOR FINISHER) Narrative Performed At This result has an attachment that is no t available. MRA head without IV contrast (01/23/2019 8:01 AM [employer] FLOOR FINISHER) Specimen Narrative Performed At FINAL REPORT [facility] MRV Head CLINICAL HISTORY:Stroke, follow up concern for transverse sinus thrombosis, need MRV please TECHNIQUE: MRV of the head utilizing 2-D [id number]-[id number] technique. COMPARISON: CTA 01/22/2019 FINDINGS: There is an irregular filling defect wit hin the medial aspect of the left transverse sinus, corresponding wit h the abnormality seen on yesterday's CTA. The other major dural v enous sinuses in the brain are patent. IMPRESSION: Filling defect within the medial aspect of the left transverse sinus remains concerning for venous thrombosis . Signed: Simran Rajan MD Report Verified Date/Time:01/23/2019 08:26:36 Procedure Note Interface, External Ris In - 01/23/2019 8:29 AM [employer] FLOOR FINISHER FINAL REPORT MRV Head CLINICAL HISTORY:Stroke, follow up concern for transverse sinus thrombosis, need MRV please TECHNIQUE: MRV of the head utilizing 2-D [id number] technique. COMPARISON: CTA 01/22/2019 FINDINGS: There is an irregular filling defect wit hin the medial aspect of the left transverse sinus, corresponding wit h the abnormality seen on yesterday's CTA. The other major dural v enous sinuses in the brain are patent. IMPRESSION: Filling defect within the medial aspect of the left transverse sinus remains concerning for venous thrombosis . Signed: Simran Rajan MD Report Verified Date/Time: 01/23/2019 0 8:26:36 Performing Organization Address City/State/Zipcode Phone Number [facility] ([facility]) MR brain without IV contrast (01/22/2019 6:11 PM [employer] FLOOR FINISHER) Specimen Narrative Performed At FINAL REPORT [facility] ([facility]) MR, BRAIN, WITHOUT CONTRAST INDICATION: Stroke, follow up Ischemic Stroke Evaluation TECHNIQUE: Multiplanar, multisequence MR imaging of the brain without intravenous contrast. COMPARISON: Same day CTA head and neck FINDINGS: Intracranial: There are multifocal areas of restricted diffusion within the left frontal, temporal, and p arietal lobes. Scattered foci of T2 prolongation within the periventri cular and subcortical white matter are a nonspecific finding commonl y attributed to chronic small vessel ischemic disease. No intracranial hemorrhage. Generalized cerebral atrophy with ex vacuo dilatatio n of the ventricular system proportionate to sulci. No mass effect. No hydrocephalus. Visualized intracranial flow voids are of normal co urse and caliber. Sinuses: Mild mucosal thickening in the paranasal sinuses. Small right mastoid effusion. Orbits: Globes are intact. Calvarium \\T\\ scalp: Unremarkable. IMPRESSION: Multifocal acute infarcts within the lef t frontal, temporal, and parietal lobes. No acute intracranial hemorrhage. These findings were discussed with Dr. Thanh RICH on 01/22/2019 7:14 PM. Signed: Simran Rajan MD Report Verified Date/Time:01/22/2019 19:25:11 Procedure Note Interface, External Ris In - 01/22/2019 7:28 PM [employer] FLOOR FINISHER FINAL REPORT MR, BRAIN, WITHOUT CONTRAST INDICATION: Stroke, follow up Ischemic Stroke Evaluation TECHNIQUE: Multiplanar, multisequence MR imaging of the brain without intravenous contrast. COMPARISON: Same day CTA head and neck FINDINGS: Intracranial: There are multifocal areas of restricted diffusion within the left frontal, temporal, and p arietal lobes. Scattered foci of T2 prolongation within the periventri cular and subcortical white matter are a nonspecific finding commonl y attributed to chronic small vessel ischemic disease. No intracranial hemorrhage. Generalized cerebral atrophy with ex vacuo dilatatio n of the ventricular system proportionate to sulci. No mass effect. No hydrocephalus. Visualized intracranial flow voids are of normal co urse and caliber. Sinuses: Mild mucosal thickening in the paranasal sinuses. Small right mastoid effusion. Orbits: Globes are intact. Calvarium \\T\\ scalp: Unremarkable. IMPRESSION: Multifocal acute infarcts within the lef t frontal, temporal, and parietal lobes. No acute intracranial hemorrhage. These findings were discussed with Dr. Thanh RICH on 01/22/2019 7:14 PM. Signed: Simran Rajan MD Report Verified Date/Time: 01/22/2019 1 9:25:11 Performing Organization Address City/State/Zipcode Phone Number [facility] ([facility]) CTA carotid (01/22/2019 4:59 PM [employer] FLOOR FINISHER) Specimen Narrative Performed At FINAL REPORT [facility] ([facility]) CLINICAL HISTORY: Neuro deficit, acute, stroke suspected TECHNIQUE: Initially, noncontrast head C T images were performed. Contiguous contrast-enhanced axial image s through the neck followed by axial images through the head with co elina and sagittal reformations to assess the arterial circ ulation. 3-D reconstructions were performed using a volume rendered t echnique separately on a workstation. This exam was performed according to the departmental dose optimization program which includes auto mated exposure control, adjustment of the mA and/or kV according to the patient size, and/or use of an iterative reconstruction techn ique. Stenosis evaluation reported in complian ce with NASCET criteria. COMPARISON: None FINDINGS: CTA head: There is no CT evidence of acute infarct or hemorrhage. There is no hydrocephalus or midline shift. Scattere d foci of hypoattenuation within the periventricular and subcortic al white matter are a nonspecific finding commonly attributed to chronic small vessel ischemic disease. The skull is intact. No intracranial aneurysm, focal stenosis , or proximal branch vessel occlusion. There is an apparent filling defect with in the medial aspect of the left transverse sinus. Remainder of the major dural venous sinuses are patent. CTA neck: Aorta: Aneurysmal ascending aorta measur ing up to 4.9 cm in diameter. Great vessel origins: No occlusion or hi gh-grade stenosis. Carotid arteries: Atherosclerosis at the right carotid bifurcation resulting in approximately 95% focal alcon nosis of the right ICA. Less than 50% focal stenosis of the left ICA. Vertebral arteries: No occlusion or high -grade stenosis. Moderate degenerative changes of the cer vical spine. Cervical soft tissues are unremarkable. Moderate right and small left pleural effusions IMPRESSION: 1.No CT evidence of acute intracranial h emorrhage or territorial infarct. Please see the separate report for the subsequent brain MRI. 2.Filling defect within the medial aspec t of the left transverse sinus concerning for venous thrombosis. 3.Aneurysmal ascending aorta measuring a t least 4.9 cm. 4.Moderate right and small left pleural effusions. These findings were discussed with Dr. Thanh RICH on 01/22/2019 7:14 PM. Signed: Simran Rajan MD Report Verified Date/Time:01/22/2019 19:16:06 Procedure Note Interface, External Ris In - 01/24/2019 2:56 PM [employer] FLOOR FINISHER FINAL REPORT CLINICAL HISTORY: Neuro deficit, acute, stroke suspected TECHNIQUE: Initially, noncontrast head C T images were performed. Contiguous contrast-enhanced axial image s through the neck followed by axial images through the head with co elnia and sagittal reformations to assess the arterial circ ulation. 3-D reconstructions were performed using a volume rendered t echnique separately on a workstation. This exam was performed according to the departmental dose optimization program which includes auto mated exposure control, adjustment of the mA and/or kV according to the patient size, and/or use of an iterative reconstruction techn ique. Stenosis evaluation reported in complian ce with NASCET criteria. COMPARISON: None FINDINGS: CTA head: There is no CT evidence of acute infarct or hemorrhage. There is no hydrocephalus or midline shift. Scattere d foci of hypoattenuation within the periventricular and subcortic al white matter are a nonspecific finding commonly attributed to chronic small vessel ischemic disease. The skull is intact. No intracranial aneurysm, focal stenosis , or proximal branch vessel occlusion. There is an apparent filling defect with in the medial aspect of the left transverse sinus. Remainder of the major dural venous sinuses are patent. CTA neck: Aorta: Aneurysmal ascending aorta measur ing up to 4.9 cm in diameter. Great vessel origins: No occlusion or hi gh-grade stenosis. Carotid arteries: Atherosclerosis at the right carotid bifurcation resulting in approximately 95% focal alcon nosis of the right ICA. Less than 50% focal stenosis of the left ICA. Vertebral arteries: No occlusion or high -grade stenosis. Moderate degenerative changes of the cer vical spine. Cervical soft tissues are unremarkable. Moderate right and small left pleural effusions IMPRESSION: 1.No CT evidence of acute intracranial h emorrhage or territorial infarct. Please see the separate report for the subsequent brain MRI. 2.Filling defect within the medial aspec t of the left transverse sinus concerning for venous thrombosis. 3.Aneurysmal ascending aorta measuring a t least 4.9 cm. 4.Moderate right and small left pleural effusions. These findings were discussed with Dr. Thanh RICH on 01/22/2019 7:14 PM. Signed: Simran Rajan MD Report Verified Date/Time: 01/22/2019 1 9:16:06 Performing Organization Address City/State/Zipcode Phone Number [facility] ([facility]) CTA brain (01/22/2019 4:59 PM [employer] FLOOR FINISHER) Specimen Narrative Performed At FINAL REPORT [facility] ([facility]) CLINICAL HISTORY: Neuro deficit, acute, stroke suspected TECHNIQUE: Initially, noncontrast head C T images were performed. Contiguous contrast-enhanced axial image s through the neck followed by axial images through the head with co elina and sagittal reformations to assess the arterial circ ulation. 3-D reconstructions were performed using a volume rendered t echnique separately on a workstation. This exam was performed according to the departmental dose optimization program which includes auto mated exposure control, adjustment of the mA and/or kV according to the patient size, and/or use of an iterative reconstruction techn ique. Stenosis evaluation reported in complian ce with NASCET criteria. COMPARISON: None FINDINGS: CTA head: There is no CT evidence of acute infarct or hemorrhage. There is no hydrocephalus or midline shift. Scattere d foci of hypoattenuation within the periventricular and subcortic al white matter are a nonspecific finding commonly attributed to chronic small vessel ischemic disease. The skull is intact. No intracranial aneurysm, focal stenosis , or proximal branch vessel occlusion. There is an apparent filling defect with in the medial aspect of the left transverse sinus. Remainder of the major dural venous sinuses are patent. CTA neck: Aorta: Aneurysmal ascending aorta measur ing up to 4.9 cm in diameter. Great vessel origins: No occlusion or hi gh-grade stenosis. Carotid arteries: Atherosclerosis at the right carotid bifurcation resulting in approximately 95% focal alcon nosis of the right ICA. Less than 50% focal stenosis of the left ICA. Vertebral arteries: No occlusion or high -grade stenosis. Moderate degenerative changes of the cer vical spine. Cervical soft tissues are unremarkable. Moderate right and small left pleural effusions IMPRESSION: 1.No CT evidence of acute intracranial h emorrhage or territorial infarct. Please see the separate report for the subsequent brain MRI. 2.Filling defect within the medial aspec t of the left transverse sinus concerning for venous thrombosis. 3.Aneurysmal ascending aorta measuring a t least 4.9 cm. 4.Moderate right and small left pleural effusions. These findings were discussed with Dr. Thanh RICH on 01/22/2019 7:14 PM. Signed: Simran Rajan MD Report Verified Date/Time:01/22/2019 19:16:06 Procedure Note Interface, External Ris In - 01/22/2019 7:18 PM [employer] FINAL REPORT CLINICAL HISTORY: Neuro deficit, acute, stroke suspected TECHNIQUE: Initially, noncontrast head C T images were performed. Contiguous contrast-enhanced axial image s through the neck followed by axial images through the head with co elina and sagittal reformations to assess the arterial circ ulation. 3-D reconstructions were performed using a volume rendered t echnique separately on a workstation. This exam was performed according to the departmental dose optimization program which includes auto mated exposure control, adjustment of the mA and/or kV according to the patient size, and/or use of an iterative reconstruction techn ique. Stenosis evaluation reported in complian ce with NASCET criteria. COMPARISON: None FINDINGS: CTA head: There is no CT evidence of acute infarct or hemorrhage. There is no hydrocephalus or midline shift. Scattere d foci of hypoattenuation within the periventricular and subcortic al white matter are a nonspecific finding commonly attributed to chronic small vessel ischemic disease. The skull is intact. No intracranial aneurysm, focal stenosis , or proximal branch vessel occlusion. There is an apparent filling defect with in the medial aspect of the left transverse sinus. Remainder of the major dural venous sinuses are patent. CTA neck: Aorta: Aneurysmal ascending aorta measur ing up to 4.9 cm in diameter. Great vessel origins: No occlusion or hi gh-grade stenosis. Carotid arteries: Atherosclerosis at the right carotid bifurcation resulting in approximately 95% focal alcon nosis of the right ICA. Less than 50% focal stenosis of the left ICA. Vertebral arteries: No occlusion or high -grade stenosis. Moderate degenerative changes of the cer vical spine. Cervical soft tissues are unremarkable. Moderate right and small left pleural effusions IMPRESSION: 1.No CT evidence of acute intracranial h emorrhage or territorial infarct. Please see the separate report for the subsequent brain MRI. 2.Filling defect within the medial aspec t of the left transverse sinus concerning for venous thrombosis. 3.Aneurysmal ascending aorta measuring a t least 4.9 cm. 4.Moderate right and small left pleural effusions. These findings were discussed with Dr. Thanh RICH on 01/22/2019 7:14 PM. Signed: Simran Rajan MD Report Verified Date/Time: 01/22/2019 1 9:16:06 Performing Organization Address City/State/Zipcode Phone Number [facility] ([facility]) Transthoracic 2D echo w/ doppler (cw/pw/color) (01/22/2019 1:16 PM [employer]) Ejection Fraction [facility] ECHO HEAR TLAB MKCKESSON CPACS Specimen Narrative Performed At Transthoracic Echocardiography Report (T TE) [facility] ECHO HEARTLAB [facility] Demographics Patient JOHN Valdes Date of Study01/22/2019 Gender Male Visit [id number] Race Unknown [id number] Number Date of 1955 ReferringCHRISTOPHER HAMILTON Physician Age 63 year(s) SonographerCity of Hope, [place] Fredi Eller NB, RDCS,RVT,RDMS Statistician Mathematical Aliya YeeInterpreting Lyn Mike MD [facility] Physician Procedure Type of Study TTE procedure:2DECHO W DOPPLER(CW/PW/COLOR) Indications:Suspected cardiac source of emboli. Clinical History A-FIB,COPD,HTN,CABG GRAFT (1969) Height: 69 inches Weight: 85.73 kg (189 lbs) BSA: 2.02 m^2 BMI: 27.91 kg/m^2 HR: 74 bpm BP: 135/67 mmHg Summary 1. Normal LV size and function. Estimated LVEF is normal (>60%) . 2. Normal RV size and function. 3. Mild aortic stenosis. AoV area at rest by continuity equation is in the range of 1.82 cm2. 4. Mild mitral regurgitation. 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 5. Aortic root size (Sinus of Valsalva diameter) is mildly dilated 3.6 cm. Proximal ascending aorta size moderately dilated . 4.2 cm Previous Study No prior exam available for comparison. Signature Findings Rhythm/BPAtrial fibrillation with rapid ventricular re sponse. Left Ventricle The left ventricle is chamber size (by PSLAX di mension) is normal (male - LVIDd 4.2-5.8 cm) . Mi ld concentric LV hypertrophy. Se ptal motion is abnormal, likely related to prior ca rdiac surgery . All of the other LV segm ents co ntract normally . Gl obal LV systolic function normal . Es timated LVEF by qualitative assessment i s normal (> 60%) . De gree of diastolic dysfunction (LAP asses sment) is in conclusive due to annular calcification . Left AtriumLA size is severely enlarged (>48 ml/m2) . Right VentricleNormal RV size and function. Right Atrium RA cavity size is enlarged but severity assessment is unreliable . Aortic Valve Knsl-gq-jfdcrpmj AoV cusp calcification. Mi ld aortic stenosis. Ao V area at rest by continuity equation is in the ra nge of 1.82 cm2. Preserved stroke volume . Mitral Valve Mild MV leaflet thickening. Se giles mitral annular and subvalvular ca lcification. Mi ld mitral regurgitation. Mi cl-ln-muegeapa mitral stenosis secondary to MAC. MV area by planimetry is in the range of 1. 49 cm2 MV area by continuity is 1.5 cm2 Tricuspid ValveTV is not well visualized. Pulmonic Valve Normal PV structure and function. AortaAortic root size (Sinus of Valsalva diameter) i s mi ldly dilated 3.6 cm. Proximal ascending aorta si ze moderately dilated . 4.2 cm PericardiumNo significant pericardial effusion is visualized. IVC/SVC/PA/PV/PleuralThe inferior vena cava size is increased . Th e estimated RA pressure by IVC dynamics 11-15mmHg . Chambers/Structures Left Atrium LA Volume: 106.86 mlLA Area: 29.39 cm^2 LA Vol. Index: 53 ml/m^2 Left Ventricle LVIDd: 4.7 cm LV Septum Diastolic: 1.18 cm LV PW Diastolic: 1.19 cm LVOT Diameter: 2.05 cm Aorta Ao Root S of Isabell.: 3.6 cmAscending Aorta: 4.19 cm Doppler/Quantitative Measurements Mitral Valve P1/2t: 148 msec Mean Velocity: 0.9 m/s Mean Gradient: 4.07 mmHg Area (continuity): 1.35 cm^2 MV Area (PHT): 1.49 cm^2 MV VTI: 48.94 cm MV Jordin. Peak: 1.6 m/s Aortic Valve Peak Velocity: 1.74 m/s Mean Velocity: 1.23 m/s Peak Gradient: 12.11 mmHg Mean Gradient: 6.7 mmHg AV Area (continuity): 1.82 cm^2 AV VTI: 36.24 cm AV DVI: 0.55 LVOT Peak Velocity: 0.93 m/s Peak Gradient: 3.42 mmHg Mean Velocity: 0.67 m/s Mean Gradient: 2.09 mmHg LVOT Diameter: 2.05 cmLVOT VTI: 20.02 cm LVOT Area: 3.3 cm^2 LVOT SV:66.05 ml LVOT CO: 4.89 l/min LVOT CI: 2.42 l/min/m^2 Procedure Note Interface, External Ris In - 01/23/2019 10:36 AM [employer] Transthoracic Echocardiography Report (TTE) Demographics Patient Name JOHN VERGARA Date of St udy 01/22/2019 Gender Male Visit Number [id number] Race Unknown [place] [id number] Number Date of 1955 Referring BRITTON HAMILTON Physician Age 63 year(s) Sonographe r Johnny [facility] Fredi Eller, NB, RDCS,RVT,RDMS Statistician Mathematical MD Isaac Espinosa Physician Procedure Type of Study TTE procedure:2DECHO W DOPPLE R(CW/PW/COLOR) Indications:Suspected cardiac source of emboli. Clinical History A-FIB,COPD,HTN,CABG GRAFT (1969) Height: 69 inches Weight: 85.73 kg (189 lbs) BSA: 2.02 m^2 BMI: 27.91 kg/m^2 HR: 74 bpm BP: 135/67 mmHg Summary 1. Normal LV size and function. Estimat ed LVEF is normal (>60%) . 2. Normal RV size and function. 3. Mild aortic stenosis. AoV area at re st by continuity equation is in the range of 1.82 cm2. 4. Mild mitral regurgitation. Mild-to-m oderate mitral stenosis secondary to MAC. 5. Aortic root size (Sinus of Valsalva diameter) is mildly dilated 3.6 cm. Proximal ascending aorta size moderatel y dilated . 4.2 cm Previous Study No prior exam available for comparison. Signature Findings Rhythm/BP Atrial fibrillat ion with rapid ventricular response. Left Ventricle The left ventric le is chamber size (by PSLAX dimension) is no rmal (male - LVIDd 4.2-5.8cm) . Mild concentric LV hypertrophy. Septal motion is abnormal, likely related to prior cardiac surgery . All of the other LV segments contract normall y . Global LV systol ic function normal . Estimated LVEF b y qualitative assessment is normal (>60%) . Degree of diasto lic dysfunction (LAP assessment) is inconclusive due to annular calcification . Left Atrium LA size is sever laine enlarged (>48 ml/m2) . Right Ventricle Normal RV size a nd function. Right Atrium RA cavity size i s enlarged but severity assessment is unreliable . Aortic Valve Xbwo-qw-myaxechp AoV cusp calcification. Mild aortic sten osis. AoV area at rest by continuity equation is in the range of 1.82 cm 2. Preserved stroke volume. Mitral Valve Mild MV leaflet thickening. Severe mitral an nular and subvalvular calcification. Mild mitral regu rgitation. Gqym-gq-xbphardx mitral stenosis secondary to MAC. MV area by plani metry is in the range of 1.49 cm2 MV area by edna nuity is 1.5 cm2 Tricuspid Valve TV is not well v isualized. Pulmonic Valve Normal PV struct ure and function. Aorta Aortic root size (Sinus of Valsalva diameter) is mildly dilated 3 .6 cm. Proximal ascending aorta size moderately dilated . 4.2 cm Pericardium No significant p ericardial effusion is visualized. IVC/SVC/PA/PV/Pleural The inferior kali a cava size is increased . The estimated RA pressure by IVC dynamics 11-15mmHg . Chambers/Structures Left Atrium LA Volume: 106.86 ml LA Area: 29.39 cm^2 LA Vol. Index: 53 ml/m^2 Left Ventricle LVIDd: 4.7 cm LV Septum Diastolic: 1.18 cm LV PW Diastolic: 1.19 cm LVOT Diameter: 2.05 cm Aorta Ao Root S of Isabell.: 3.6 cm Ascending Aorta: 4.19 cm Doppler/Quantitative Measurements Mitral Valve P1/2t: 148 msec Mean Velocity: 0.9 m/s Mean Gradient: 4.07 mmHg Area (continuity): 1.35 cm^2 MV Area (PHT): 1.49 cm^2 MV V TI: 48.94 cm MV Jordin. Peak: 1.6 m/s Aortic Valve Peak Velocity: 1.74 m/s Mean Velocity: 1.23 m/s Peak Gradient: 12.11 mmHg Mean Gradient: 6.7 mmHg AV Area (continuity): 1.82 cm^2 AV VTI: 36.24 cm AV DVI: 0.55 LVOT Peak Velocity: 0.93 m/s Pea k Gradient: 3.42 mmHg Mean Velocity: 0.67 m/s Nichole n Gradient: 2.09 mmHg LVOT Diameter: 2.05 cm LVO T VTI: 20.02 cm LVOT Area: 3.3 cm^2 LVO T SV:66.05 ml LVOT CO: 4.89 l/min LVO T CI: 2.42 l/min/m^2 Performing Organization Address City/[facility]/Zipcode Phone Number [facility] ECHO HEARTLAB [facility] (01/21/2019 11:26 PM [employer]) RPR Nonreactive Nonreactive [facility] Specimen Blood Performing Organization Address City/[facility]/Zipcode Phone Number [address] [address] CENTER after 07/15/2018 Insurance Payer Benefit Plan / Group Subscriber ID Type Phone A nena DAIGLE xxxxxxxxxxx Advance Directives For more information, please contact:[address] [phone] Code Status Date Activated Date Inactivated Comments Full Code 05/30/2019 8:01 PM 06/09/2019 10:53 PM This code status was determined by: Patient Full Code 03/19/2019 11:39 PM 04/25/2019 7:15 PM This code status was determined by: Patient Full Code 01/21/2019 8:37 PM 01/24/2019 4:42 PM This code status was determined by: Patient
--- OUTSIDE RECORDS SUMMARY | 2019-07-16 15:37 | XMS REPORT ---
:1955 Author Organization [facility] t Address [address] [place] [address] Care Team Providers Name Role Phone Thnah Edmond MD Attending Clinician Mukesh PALAFOX Attending Clinician Unavailable Darryl CAMERON Attending Clinician EDILMA CARDONA Attending Clinician Unavailable FARA Attending Clinician Unavailable Doctor Unassigned, Name Attending Clinician Unavailable SIMRAN HORNE Admitting Clinician Unavailable EDILMA CARDONA Admitting Clinician Unavailable HILARIO Admitting Clinician Unavailable Problems This patient has no known problems. Allergies, Adverse Reactions, Alerts This patient has no known allergies or adverse reactions. Medications This patient has no known medications. Procedures This patient has no known procedures. Encounters Start End Encounter Admission Attending Care Care Encounter Source Date/Time Date/Time Type Type Clinicians Facility Department ID 2019-07-14 2019-07-14 [facility] [id number] 00:00:00 00:00:00 [facility] [id number] [place] [id number] Professio [phone] nal [address] 2019-06-18 2019-06-18 Telephone [facility] [id number] 00:00:00 00:00:00 [facility] [id number] [place] [id number] Professio [phone] nal [address] One 2019-05-29 2019-05-29 [facility] 1.2.840.114 [id number] 00:00:00 00:00:00 [facility] [id number] [place] [id number] Professio [phone] [address] 2019-05-27 2019-05-27 Telemedici [facility] 1.2.840.114 [id number] 15:30:00 15:50:00 ne Visit [facility] [place] 350.1.13.10 [place] [id number] Professio [phone] [address] 2019-05-27 2019-05-27 [facility] 1.2.840.114 [id number] 00:00:00 00:00:00 [facility] [id number] [place] [id number] Professio [phone] [address] 2019-05-26 2019-05-26 [facility] 1.2.840.114 [id number] 00:00:00 00:00:00 [facility] 350.1.13.10 [place] [id number] Professio [phone] [address] 2019-05-08 2019-05-08 Office Darryl, [facility] 1.2.840.114 [id number] 10:44:48 16:34:59 Visit Fernando AMBULATOR 350.1.13.21 Y 0.2.7.2.686 [id number] [id number] 2018-11-12 2018-11-12 Orders Doctor HYACINTH 1.2.840.114 [id number] 00:00:00 00:00:00 Only Unassigned, MARIO 350.1.13.10 [place] [facility] [phone] [id number] 2018-11-06 2018-11-06 Telephone [facility] 1.2.840.114 [id number] 00:00:00 00:00:00 [facility] 350.1.13.10 [place] [id number] Professio [phone] nal 0[address] One 2018-10-29 2018-10-29 Telephone [facility] 1.2.840.114 [id number] 00:00:00 00:00:00 [facility] 350.1.13.10 [place] 4.2.7.2.686 Professio [phone] nal [facility] Office Building One 2018-09-19 2018-09-19 Refill [facility] 1.2.840.114 [id number] 00:00:00 00:00:00 [facility] 350.1.13.10 [place] 4.2.7.2.686 Professio [phone] [place] [address] [address] One Results Test Description Test Time Test Comments Results Result Comments Source POCT-GLUCOSE METER 2019-06-09 18:49:00 Test Item Value Reference Range Interpretation Comme nts POC-GLUCOSE METER ([facility]) 72 mg/dL 70-110 : TESTED AT [facility] 67[address] [facility] (test code = 1538) [facility], [address]: Metal Tube Cutter/Techni aaron ID = [id number] for RYAN ECHOLS POCT-GLUCOSE [id number] 13:07:00 Test Item Value Reference Range Interpretation Comments POC-GLUCOSE METER 83 mg/dL 70-110 : TESTED A [facility] 67[facility] (test code = ILDA Calvert [facility], 1538) [address]: Metal Tube Cutter/Techni aaron ID = [id number] for RYAN NICE COMPREHENSIVE METABOLIC [id number] 12:12:00 Test Item Value Reference Range Interpretation Comments TOTAL PROTEIN 6.7 gm/dL 6.0-8.3 Specimen sligh tly (BEAKER) (test code = hemoly zed 770) ALBUMIN (BEAKER) 2.1 g/dL 3.5-5.0 L Specimen sl ightly (test code = 1145) hemolyzed ALKALINE PHOSPHATASE 202 U/L 40-150 H (BEAKER) (test code = 346) BILIRUBIN TOTAL 1.2 mg/dL 0.2-1.2 Specimen sli ghtly (BEAKER) (test code = hemoly zed 377) SODIUM (BEAKER) (test 142 meq/L 136-145 code = 381) POTASSIUM (BEAKER) 4.4 meq/L 3.5-5.1 Specimen slightly (test code = 379) hemolyzed CHLORIDE (BEAKER) 107 meq/L 98-107 (test code = 382) CO2 (BEAKER) (test 30 meq/L 22-29 H code = 355) BLOOD UREA NITROGEN 25 mg/dL 7-21 H (BEAKER) (test code = 354) CREATININE (BEAKER) 0.76 mg/dL 0.57-1.25 Specimen slightly (test code = 358) hemolyzed GLUCOSE RANDOM 108 mg/dL 70-105 H (BEAKER) (test code = 652) CALCIUM (BEAKER) 7.9 mg/dL 8.4-10.2 L (test code = 697) AST (SGOT) (BEAKER) 77 U/L 5-34 H Specimen slightly (test code = 353) hemolyzed ALT (SGPT) (BEAKER) 86 U/L 6-55 H Specimen slightly (test code = 347) hemolyzed EGFR (BEAKER) (test 103 ESTIMATE D GFR IS code = 1092) mL/min/1.73 sq NOT ACCURA TE m CREATININE CLEARANCE IN PREDICTING GLOMERULAR FILTRATION RATE . ESTIMATED GFR I S NOT APPLICABLE FOR DIALYSIS PATIEN TS. Metal Tube Cutter ID - ELISSA MPOCT-GLUCOSE [id number] 06:17:00 Test Item Value Reference Range Interpretation Comments POC-GLUCOSE METER 105 mg/dL 70-110 : TESTED A T [facility] 6720 (BEAKER) (test code = [facility], 153) [address]: Metal Tube Cutter/Techni aaron ID = [id number] for ELIDIA VALDES POCT-GLUCOSE [id number] 23:52:00 Test Item Value Reference Range Interpretation Comments POC-GLUCOSE METER 97 mg/dL 70-110 : TESTED A T [facility] 6720 (BEAKER) (test code = [facility], 1538) [address]: Metal Tube Cutter/Techni aaron ID = [id number] for ELIDIA BLACKWOOD POCT-GLUCOSE [id number] 18:31:00 Test Item Value Reference Range Interpretation Comments POC-GLUCOSE METER 102 mg/dL 70-110 : TESTED A T [facility] 6720 (BEAKER) (test code = [facility], 1538) [address]: Metal Tube Cutter/Techni aaron ID = [id number] for CO RTEZ, JOSY POCT-GLUCOSE [id number] 17:27:00 Test Item Value Reference Range Interpretation Comments POC-GLUCOSE METER 106 mg/dL 70-110 : TESTED A T [facility] 6720 (BEAKER) (test code = [facility], 153) [address]: Metal Tube Cutter/Techni aaron ID = [id number] for RA GLAND, LATOYA POCT-GLUCOSE [id number] 23:31:00 Test Item Value Reference Range Interpretation Comments POC-GLUCOSE METER 101 mg/dL 70-110 : TESTED A T [facility] 6720 (BEAKER) (test code = [facility], 153) [address]: Metal Tube Cutter/Techni aaron ID = [id number] for RA GLAND, LATOYA POCT-GLUCOSE [id number] 18:53:00 Test Item Value Reference Range Interpretation Comments POC-GLUCOSE METER 89 mg/dL 70-110 : TESTED A T [facility] 6720 (BEAKER) (test code [facility], [address]: = 1538) Metal Tube Cutter/Techni aaron ID = [id number] for VALORIE HONG, JAX POCT-GLUCOSE [id number] 17:25:00 Test Item Value Reference Range Interpretation Comments POC-GLUCOSE METER 67 mg/dL 70-110 L : TESTED A T [facility] 6720 (BEAKER) (test code = [facility], 153) [address]: Metal Tube Cutter/Techni aaron ID = [id number] for DE LA ROSA-DELUNA, KIRSTEN POCT-GLUCOSE [id number] 14:28:00 Test Item Value Reference Range Interpretation Comments POC-GLUCOSE METER 88 mg/dL 70-110 : TESTED A T [facility] 6720 (BEAKER) (test code = [facility], 153) [address]: Metal Tube Cutter/Techni aaron ID = [id number] for DE LA ROSA-DELUNA, KIRSTEN POCT-GLUCOSE [id number] 06:27:00 Test Item Value Reference Range Interpretation Comments POC-GLUCOSE METER 101 mg/dL 70-110 : TESTED A T [facility] 6720 (BEAKER) (test code = [facility], 1538) [address]: Metal Tube Cutter/Techni aaron ID = [id number] for RA GLAND, LATOYA POCT-GLUCOSE [id number] 23:55:00 Test Item Value Reference Range Interpretation Comments POC-GLUCOSE METER 97 mg/dL 70-110 : TESTED A T [facility] 6720 (BEAKER) (test code = [facility], 153) [address]: Metal Tube Cutter/Techni aaron ID = [id number] for RAGL AND, LATOYA POCT-GLUCOSE [id number] 17:59:00 Test Item Value Reference Range Interpretation Comments POC-GLUCOSE METER 92 mg/dL 70-110 : TESTED A T [facility] 6720 (BEAKER) (test code = [facility], 1538) [address]: Metal Tube Cutter/Techni aaron ID = [id number] for Cuco, Leeanna POCT-GLUCOSE [id number] 12:15:00 Test Item Value Reference Range Interpretation Comments POC-GLUCOSE METER 103 mg/dL 70-110 : TESTED A T [facility] 6720 (BEAKER) (test code = [facility], [facility]8) [address]: Metal Tube Cutter/Techni aaron ID = [id number] for Ree d, Leeanna POCT-GLUCOSE [id number] 05:55:00 Test Item Value Reference Range Interpretation Comments POC-GLUCOSE METER 105 mg/dL 70-110 : TESTED A T [facility] 6720 (BEAKER) (test code = [facility], [facility]8) [address]: Metal Tube Cutter/Techni aaron ID = [id number] for AHMET CASTELLANOS COMPREHENSIVE METABOLIC [id number] 04:31:00 Test Item Value Reference Range Interpretation Comments TOTAL PROTEIN 6.0 gm/dL 6.0-8.3 (BEAKER) (test code = 770) ALBUMIN (BEAKER) 1.9 g/dL 3.5-5.0 L (test code = 1145) ALKALINE PHOSPHATASE 179 U/L 40-150 H (BEAKER) (test code = 346) BILIRUBIN TOTAL 1.0 mg/dL 0.2-1.2 (BEAKER) (test code = 377) SODIUM (BEAKER) (test 145 meq/L 136-145 code = 381) POTASSIUM (BEAKER) 3.7 meq/L 3.5-5.1 (test code = 379) CHLORIDE (BEAKER) 103 meq/L 98-107 (test code = 382) CO2 (BEAKER) (test 36 meq/L 22-29 H code = 355) BLOOD UREA NITROGEN 28 mg/dL 7-21 H (BEAKER) (test code = 354) CREATININE (BEAKER) 0.90 mg/dL 0.57-1.25 (test code = 358) GLUCOSE RANDOM 95 mg/dL 70-105 (BEAKER) (test code = 652) CALCIUM (BEAKER) 7.8 mg/dL 8.4-10.2 L (test code = 697) AST (SGOT) (BEAKER) 80 U/L 5-34 H (test code = 353) ALT (SGPT) (BEAKER) 116 U/L 6-55 H (test code = 347) EGFR (BEAKER) (test 85 mL/min/1.73 ESTIMA ARLENE GFR IS code = 1092) sq m NOT ACCURATE CREATININE CLEARANCE IN PREDICTING GLOMERULAR FILTRATION RATE . ESTIMATED GFR I S NOT APPLICABLE FOR DIALYSIS PATIEN TS. Metal Tube Cutter ID - SANDRA WPOCT-GLUCOSE [id number] 00:14:00 Test Item Value Reference Range Interpretation Comments POC-GLUCOSE METER 106 mg/dL 70-110 : TESTED A T [facility] 6720 (BEAKER) (test code = [facility], 153) [address]: Metal Tube Cutter/Techni aaron ID = [id number] for UE COSME, AHMET POCT-GLUCOSE [id number] 19:00:00 Test Item Value Reference Range Interpretation Comments POC-GLUCOSE METER 111 mg/dL 70-110 H : TESTED A T [facility] 6720 (BEAKER) (test code = [facility], 1538) [address]: Metal Tube Cutter/Techni aaron ID = [id number] for CO RTEZ, JOSY POCT-GLUCOSE [id number] 17:05:00 Test Item Value Reference Range Interpretation Comments POC-GLUCOSE METER 101 mg/dL 70-110 : TESTED A T [facility] 6720 (BEAKER) (test code = [facility], 1538) [address]: Metal Tube Cutter/Techni aaron ID = [id number] for CO RTEZ, JOSY [id number] 17:03:00 Test Item Value Reference Range Interpretation Comments POTASSIUM (BEAKER) (test code = 3.9 meq/L 3.5-5.1 379) Metal Tube Cutter ID - BSBLOOD [id number] 10:00:00 Test Item Value Reference Range Interpretation Comments CULTURE (BEAKER) (test No growth in 5 days code = 1095) BASIC METABOLIC [id number] 06:28:00 Test Item Value Reference Range Interpretation Comments SODIUM (BEAKER) 145 meq/L 136-145 (test code = 381) POTASSIUM (BEAKER) 3.0 meq/L 3.5-5.1 L (test code = 379) CHLORIDE (BEAKER) 101 meq/L 98-107 (test code = 382) CO2 (BEAKER) (test 38 meq/L 22-29 H code = 355) BLOOD UREA NITROGEN 28 mg/dL 7-21 H (BEAKER) (test code = 354) CREATININE (BEAKER) 0.87 mg/dL 0.57-1.25 (test code = 358) GLUCOSE RANDOM 110 mg/dL 70-105 H (BEAKER) (test code = 652) CALCIUM (BEAKER) 7.9 mg/dL 8.4-10.2 L (test code = 697) EGFR (BEAKER) (test 88 mL/min/1.73 ESTIMA ARLENE GFR IS code = 1092) sq m NOT ACCURATE CREATININE CLEARANCE IN PREDICTING GLOMERULAR FILTRATION RATE . ESTIMATED GFR I S NOT APPLICABLE FOR DIALYSIS PATIEN TS. Metal Tube Cutter ID - PIAYA LPOCT-GLUCOSE [id number] 06:13:00 Test Item Value Reference Range Interpretation Comments POC-GLUCOSE METER 119 mg/dL 70-110 H : TESTED A T [facility] 6720 (BEAKER) (test code = [facility] [employer] [facility], 1538) [address]: Metal Tube Cutter/Techni aaron ID = [id number] for UE COSME, AHMET BLOOD [id number] 03:01:00 Test Item Value Reference Range Interpretation Comments CULTURE (BEAKER) (test No growth in 5 days code = 1095) POCT-GLUCOSE [id number] 00:16:00 Test Item Value Reference Range Interpretation Comments POC-GLUCOSE METER 92 mg/dL 70-110 : TESTED A T [facility] 6720 (BEAKER) (test code = [facility] [employer] [facility], 1538) [address]: Metal Tube Cutter/Techni aaron ID = [id number] for UEMA RU, AHMET POCT-GLUCOSE [id number] 17:55:00 Test Item Value Reference Range Interpretation Comments POC-GLUCOSE METER 104 mg/dL 70-110 : TESTED A T [facility] 6720 (BEAKER) (test code = DOROTANC [employer] [facility], 1538) [address]: Metal Tube Cutter/Techni aaron ID = [id number] for AN GEM [place] FL, ESOPH, SWALLOW FUNCTION, WITH CINE OR [id number] 15:08:00Reason for exam:->dysphagiaFINAL REPORT EXAMINATION: Modified barium [...] same date for further description. Signed: Fredi Lucasort Verified Date/Time: 06/04/2019 15:08:42 Reading Location: [address] Reading Room POCT-GLUCOSE [id number] 11:56:00 Test Item Value Reference Range Interpretation Comments POC-GLUCOSE METER 111 mg/dL 70-110 H : TESTED A T [facility] 6720 (BEAKER) (test code = [facility], 153) [address]: Metal Tube Cutter/Techni aaron ID = [id number] for AN GEM CUMMINGS POCT-GLUCOSE [id number] 06:18:00 Test Item Value Reference Range Interpretation Comments POC-GLUCOSE METER 110 mg/dL 70-110 : TESTED A T [facility] 6720 (BEAKER) (test code = [facility], 153) 117[address]: Metal Tube Cutter/Techni aaron ID = [id number] for DO SIMS ELIDIA COMPREHENSIVE METABOLIC [id number] 05:51:00 Test Item Value Reference Range Interpretation Comments TOTAL PROTEIN 6.1 gm/dL 6.0-8.3 (BEAKER) (test code = 770) ALBUMIN (BEAKER) 2.0 g/dL 3.5-5.0 L (test code = 1145) ALKALINE PHOSPHATASE 176 U/L 40-150 H (BEAKER) (test code = 346) BILIRUBIN TOTAL 1.0 mg/dL 0.2-1.2 (BEAKER) (test code = 377) SODIUM (BEAKER) (test 144 meq/L 136-145 code = 381) POTASSIUM (BEAKER) 2.8 meq/L 3.5-5.1 L (test code = 379) CHLORIDE (BEAKER) 98 meq/L 98-107 (test code = 382) CO2 (BEAKER) (test 40 meq/L 22-29 HH code = 355) BLOOD UREA NITROGEN 26 mg/dL 7-21 H (BEAKER) (test code = 354) CREATININE (BEAKER) 0.98 mg/dL 0.57-1.25 (test code = 358) GLUCOSE RANDOM 114 mg/dL 70-105 H (BEAKER) (test code = 652) CALCIUM (BEAKER) 8.4 mg/dL 8.4-10.2 (test code = 697) AST (SGOT) (BEAKER) 90 U/L 5-34 H (test code = 353) ALT (SGPT) (BEAKER) 151 U/L 6-55 H (test code = 347) EGFR (BEAKER) (test 77 mL/min/1.73 ESTIMA ARLENE GFR IS code = 1092) sq m NOT ACCURATE CREATININE CLEARANCE IN PREDICTING GLOMERULAR FILTRATION RATE . ESTIMATED GFR I S NOT APPLICABLE FOR DIALYSIS PATIEN TS. Metal Tube Cutter ID - ELISSA [facility] W/PLT COUNT & AUTO [id number] 05:29:00 Test Item Value Reference Range Interpretation Comments WHITE BLOOD CELL COUNT (BEAKER) 13.3 K/ L 3.5-10.5 H (test code = 775) RED BLOOD CELL COUNT (BEAKER) 4.12 M/ L 4.63-6.08 L (test code = 761) HEMOGLOBIN (BEAKER) (test code = 10.8 GM/DL 13.7-17.5 L 410) HEMATOCRIT (BEAKER) (test code = 35.6 % 40.1-51.0 L 411) MEAN CORPUSCULAR VOLUME (BEAKER) 86.4 fL 79.0-92.2 (test code = 753) MEAN CORPUSCULAR HEMOGLOBIN 26.2 pg 25.7-32.2 (BEAKER) (test code = 751) MEAN CORPUSCULAR HEMOGLOBIN CONC 30.3 GM/DL 32.3-36.5 L (BEAKER) (test code = 752) RED CELL DISTRIBUTION WIDTH 20.1 % 11.6-14.4 H (BEAKER) (test code = 412) PLATELET COUNT (BEAKER) (test 240 K/CU MM 150-450 code = 756) MEAN PLATELET VOLUME (BEAKER) 12.3 fL 9.4-12.4 (test code = 754) NUCLEATED RED BLOOD CELLS 0 /100 WBC 0-0 (BEAKER) (test code = 413) NEUTROPHILS RELATIVE PERCENT 71 % (BEAKER) (test code = 429) LYMPHOCYTES RELATIVE PERCENT 16 % (BEAKER) (test code = 430) MONOCYTES RELATIVE PERCENT 9 % (BEAKER) (test code = 431) EOSINOPHILS RELATIVE PERCENT 3 % (BEAKER) (test code = 432) BASOPHILS RELATIVE PERCENT 1 % (BEAKER) (test code = 437) NEUTROPHILS ABSOLUTE COUNT 9.45 K/ L 1.78-5.38 H (BEAKER) (test code = 670) LYMPHOCYTES ABSOLUTE COUNT 2.08 K/ L 1.32-3.57 (BEAKER) (test code = 414) MONOCYTES ABSOLUTE COUNT (BEAKER) 1.24 K/ L 0.30-0.82 H (test code = 415) EOSINOPHILS ABSOLUTE COUNT 0.43 K/ L 0.04-0.54 (BEAKER) (test code = 416) BASOPHILS ABSOLUTE COUNT (BEAKER) 0.07 K/ L 0.01-0.08 (test code = 417) IMMATURE GRANULOCYTES-RELATIVE 0 % 0-1 PERCENT (BEAKER) (test code = 2801) U/S, ABDOMINAL, [id number] 04:00:00Abdomen limited area? Add comment if clarification [...] Reji Tyler MDReport Verified Date/Time:06/04/2019 04:00:37 POCT-GLUCOSE [id number] 23:50:00 Test Item Value Reference Range Interpretation Comments POC-GLUCOSE METER 115 mg/dL 70-110 H : TESTED A T [facility] 6720 (BEAKER) (test code = [facility], 1538) 90[address]: Metal Tube Cutter/Techni aaron ID = [id number] for ELIDIA VALDES POCT-GLUCOSE [id number] 18:03:00 Test Item Value Reference Range Interpretation Comments POC-GLUCOSE METER 126 mg/dL 70-110 H : TESTED A T [facility] 6720 (BEAKER) (test code = [facility], 1538) 300[address]: Metal Tube Cutter/Techni aaron ID = [id number] for BRENDON BONILLA [id number] 15:27:00 Test Item Value Reference Range Interpretation Comments AMMONIA (BEAKER) (test code = 348) 82 mol/L 18-72 H Metal Tube Cutter ID - BSMRSA [id number] 12:47:00 Test Item Value Reference Range Interpretation Comments CULTURE (BEAKER) (test code No MRSA isolated = 1095) POCT-GLUCOSE [id number] 12:25:00 Test Item Value Reference Range Interpretation Comments POC-GLUCOSE METER 123 mg/dL 70-110 H : TESTED A T [facility] 6720 (BEAKER) (test code = [facility], 1538) 19466: Metal Tube Cutter/Techni aaron ID = [id number] for BRENDON BONILLA POCT-GLUCOSE [id number] 06:32:00 Test Item Value Reference Range Interpretation Comments POC-GLUCOSE METER 106 mg/dL 70-110 : TESTED [facility] T [facility] 6720 (BEAKER) (test code = [place], 1538) [address]: Metal Tube Cutter/Techni aaron ID = [id number] for ELIDIA VALDES [id number] 06:13:00 Test Item Value Reference Range Interpretation Comments MAGNESIUM (BEAKER) 2.2 mg/dL 1.6-2.6 Specimen slightly (test code = 627) hemolyzed Metal Tube Cutter ID - BSCOMPREHENSIVE METABOLIC [id number] 06:13:00 Test Item Value Reference Range Interpretation Comments TOTAL PROTEIN 6.4 gm/dL 6.0-8.3 Specimen sligh tly (BEAKER) (test code = hemoly zed 770) ALBUMIN (BEAKER) 2.1 g/dL 3.5-5.0 L Specimen sl ightly (test code = 1145) hemolyzed ALKALINE PHOSPHATASE 176 U/L 40-150 H (BEAKER) (test code = 346) BILIRUBIN TOTAL 1.0 mg/dL 0.2-1.2 Specimen sli ghtly (BEAKER) (test code = hemoly zed 377) SODIUM (BEAKER) (test 143 meq/L 136-145 code = 381) POTASSIUM (BEAKER) 3.5 meq/L 3.5-5.1 Specimen slightly (test code = 379) hemolyzed CHLORIDE (BEAKER) 97 meq/L 98-107 L (test code = 382) CO2 (BEAKER) (test 39 meq/L 22-29 H code = 355) BLOOD UREA NITROGEN 26 mg/dL 7-21 H (BEAKER) (test code = 354) CREATININE (BEAKER) 1.03 mg/dL 0.57-1.25 Specimen slightly (test code = 358) hemolyzed GLUCOSE RANDOM 114 mg/dL 70-105 H (BEAKER) (test code = 652) CALCIUM (BEAKER) 8.6 mg/dL 8.4-10.2 (test code = 697) AST (SGOT) (BEAKER) 129 U/L 5-34 H Specimen slightly (test code = 353) hemolyzed ALT (SGPT) (BEAKER) 183 U/L 6-55 H Specimen slightly (test code = 347) hemolyzed EGFR (BEAKER) (test 73 mL/min/1.73 ESTIMA ARLENE GFR IS code = 1092) sq m NOT ACCURATE CREATININE CLEARANCE IN PREDICTING GLOMERULAR FILTRATION RATE . ESTIMATED GFR I S NOT APPLICABLE FOR DIALYSIS PATIEN TS. Metal Tube Cutter ID - BSCBC W/PLT COUNT & AUTO [id number] 05:58:00 Test Item Value Reference Range Interpretation Comments WHITE BLOOD CELL COUNT (BEAKER) 13.4 K/ L 3.5-10.5 H (test code = 775) RED BLOOD CELL COUNT (BEAKER) 4.21 M/ L 4.63-6.08 L (test code = 761) HEMOGLOBIN (BEAKER) (test code = 10.6 GM/DL 13.7-17.5 L 410) HEMATOCRIT (BEAKER) (test code = 35.7 % 40.1-51.0 L 411) MEAN CORPUSCULAR VOLUME (BEAKER) 84.8 fL 79.0-92.2 (test code = 753) MEAN CORPUSCULAR HEMOGLOBIN 25.2 pg 25.7-32.2 L (BEAKER) (test code = 751) MEAN CORPUSCULAR HEMOGLOBIN CONC 29.7 GM/DL 32.3-36.5 L (BEAKER) (test code = 752) RED CELL DISTRIBUTION WIDTH 20.0 % 11.6-14.4 H (BEAKER) (test code = 412) PLATELET COUNT (BEAKER) (test 241 K/CU MM 150-450 code = 756) MEAN PLATELET VOLUME (BEAKER) 11.6 fL 9.4-12.4 (test code = 754) NUCLEATED RED BLOOD CELLS 0 /100 WBC 0-0 (BEAKER) (test code = 413) NEUTROPHILS RELATIVE PERCENT 74 % (BEAKER) (test code = 429) LYMPHOCYTES RELATIVE PERCENT 12 % (BEAKER) (test code = 430) MONOCYTES RELATIVE PERCENT 11 % (BEAKER) (test code = 431) EOSINOPHILS RELATIVE PERCENT 2 % (BEAKER) (test code = 432) BASOPHILS RELATIVE PERCENT 1 % (BEAKER) (test code = 437) NEUTROPHILS ABSOLUTE COUNT 9.92 K/ L 1.78-5.38 H (BEAKER) (test code = 670) LYMPHOCYTES ABSOLUTE COUNT 1.61 K/ L 1.32-3.57 (BEAKER) (test code = 414) MONOCYTES ABSOLUTE COUNT (BEAKER) 1.50 K/ L 0.30-0.82 H (test code = 415) EOSINOPHILS ABSOLUTE COUNT 0.28 K/ L 0.04-0.54 (BEAKER) (test code = 416) BASOPHILS ABSOLUTE COUNT (BEAKER) 0.08 K/ L 0.01-0.08 (test code = 417) IMMATURE GRANULOCYTES-RELATIVE 0 % 0-1 PERCENT (BEAKER) (test code = 2801) POCT-GLUCOSE [id number] 00:22:00 Test Item Value Reference Range Interpretation Comments POC-GLUCOSE METER 133 mg/dL 70-110 H : TESTED A T [facility] 6720 (BEAKER) (test code = [facility], 1538) [id number]: Metal Tube Cutter/Techni aaron ID = [id number] for ELIDIA VALDES POCT-GLUCOSE [id number] 18:09:00 Test Item Value Reference Range Interpretation Comments POC-GLUCOSE METER 129 mg/dL 70-110 H : TESTED A T [facility] 6720 (BEAKER) (test code = [facility] [place], 1538) [id number]: Metal Tube Cutter/Techni aaron ID = [id number] for [place]ON MALLORYLEY BASIC METABOLIC [id number] 16:10:00 Test Item Value Reference Range Interpretation Comments SODIUM (BEAKER) 145 meq/L 136-145 (test code = 381) POTASSIUM (BEAKER) 4.4 meq/L 3.5-5.1 Specimen moderately (test code = 379) hemolyzed CHLORIDE (BEAKER) 94 meq/L 98-107 L (test code = 382) CO2 (BEAKER) (test 43 meq/L 22-29 HH code = 355) BLOOD UREA NITROGEN 27 mg/dL 7-21 H (BEAKER) (test code = 354) CREATININE (BEAKER) 1.30 mg/dL 0.57-1.25 H Specimen moderately (test code = 358) hemolyzed GLUCOSE RANDOM 108 mg/dL 70-105 H (BEAKER) (test code = 652) CALCIUM (BEAKER) 9.1 mg/dL 8.4-10.2 (test code = 697) EGFR (BEAKER) (test 56 mL/min/1.73 ESTIMA ARLENE GFR IS code = 1092) sq m NOT ACCURATE CREATININE CLEARANCE IN PREDICTING GLOMERULAR FILTRATION RATE . ESTIMATED GFR I S NOT APPLICABLE FOR DIALYSIS PATIEN TS. Metal Tube Cutter ID - BSPOCT-GLUCOSE [id number] 12:41:00 Test Item Value Reference Range Interpretation Comments POC-GLUCOSE METER 120 mg/dL 70-110 H : TESTED A T [facility] 6720 (BEAKER) (test code = [facility], 1538) [id number]: Metal Tube Cutter/Techni aaron ID = [id number] for RYAN MALLORY BLOOD GAS, [id number] 08:24:00 Test Item Value Reference Range Interpretation Comments PH ARTERIAL (BEAKER) (test code = 7.57 7.35-7.45 H 383) PCO2 ARTERIAL (BEAKER) (test code 50 mmHg 35-45 H = 384) PO2 ARTERIAL (BEAKER) (test code 68 mmHg 80-90 L = 385) O2 SATURATION ARTERIAL (BEAKER) 95.6 % 96.0-97.0 L (test code = 386) HCO3 ARTERIAL (BEAKER) (test code 45 mmol/L 21-29 HH = 388) BASE EXCESS ARTERIAL (BEAKER) 20.4 mmol/L -2.0-3.0 H (test code = 387) PATIENT TEMPERATURE (BEAKER) 36.7 C (test code = 1818) FIO2 (BEAKER) (test code = 1819) 21.0 % POCT-GLUCOSE [id number] 08:22:00 Test Item Value Reference Range Interpretation Comments POC-GLUCOSE METER 143 mg/dL 70-110 H : TESTED A T [facility] 6720 (BEAKER) (test code = [facility], 1538) 113[address]: Metal Tube Cutter/Techni aaron ID = [id number] for SELENE LERMA [id number] 03:10:00 Test Item Value Reference Range Interpretation Comments MAGNESIUM (BEAKER) (test code = 1.9 mg/dL 1.6-2.6 627) Metal Tube Cutter ID - SANDRA WCOMPREHENSIVE METABOLIC [id number] 02:30:00 Test Item Value Reference Range Interpretation Comments TOTAL PROTEIN 6.2 gm/dL 6.0-8.3 (BEAKER) (test code = 770) ALBUMIN (BEAKER) 1.9 g/dL 3.5-5.0 L (test code = 1145) ALKALINE PHOSPHATASE 169 U/L 40-150 H (BEAKER) (test code = 346) BILIRUBIN TOTAL 1.2 mg/dL 0.2-1.2 (BEAKER) (test code = 377) SODIUM (BEAKER) (test 145 meq/L 136-145 code = 381) POTASSIUM (BEAKER) 2.6 meq/L 3.5-5.1 LL (test code = 379) CHLORIDE (BEAKER) 95 meq/L 98-107 L (test code = 382) CO2 (BEAKER) (test 42 meq/L 22-29 HH code = 355) BLOOD UREA NITROGEN 31 mg/dL 7-21 H (BEAKER) (test code = 354) CREATININE (BEAKER) 1.09 mg/dL 0.57-1.25 (test code = 358) GLUCOSE RANDOM 112 mg/dL 70-105 H (BEAKER) (test code = 652) CALCIUM (BEAKER) 8.7 mg/dL 8.4-10.2 (test code = 697) AST (SGOT) (BEAKER) 136 U/L 5-34 H (test code = 353) ALT (SGPT) (BEAKER) 186 U/L 6-55 H (test code = 347) EGFR (BEAKER) (test 68 mL/min/1.73 ESTIMA ARLENE GFR IS code = 1092) sq m NOT ACCURATE CREATININE CLEARANCE IN PREDICTING GLOMERULAR FILTRATION RATE . ESTIMATED GFR I S NOT APPLICABLE FOR DIALYSIS PATIEN TS. Metal Tube Cutter ID Sultana FLORES WVANCOMYCIN LEVEL, [id number] 02:22:00 Test Item Value Reference Range Interpretation Comments VANCOMYCIN TROUGH (BEAKER) (test 32.2 ug/mL 10.0-20.0 HH code = 522) Metal Tube Cutter ID - SANDRA WCBC W/PLT COUNT & AUTO [id number] 02:07:00 Test Item Value Reference Range Interpretation Comments WHITE BLOOD CELL COUNT (BEAKER) 12.0 K/ L 3.5-10.5 H (test code = 775) RED BLOOD CELL COUNT (BEAKER) 4.11 M/ L 4.63-6.08 L (test code = 761) HEMOGLOBIN (BEAKER) (test code = 10.7 GM/DL 13.7-17.5 L 410) HEMATOCRIT (BEAKER) (test code = 34.6 % 40.1-51.0 L 411) MEAN CORPUSCULAR VOLUME (BEAKER) 84.2 fL 79.0-92.2 (test code = 753) MEAN CORPUSCULAR HEMOGLOBIN 26.0 pg 25.7-32.2 (BEAKER) (test code = 751) MEAN CORPUSCULAR HEMOGLOBIN CONC 30.9 GM/DL 32.3-36.5 L (BEAKER) (test code = 752) RED CELL DISTRIBUTION WIDTH 20.0 % 11.6-14.4 H (BEAKER) (test code = 412) PLATELET COUNT (BEAKER) (test 238 K/CU MM 150-450 code = 756) MEAN PLATELET VOLUME (BEAKER) 11.2 fL 9.4-12.4 (test code = 754) NUCLEATED RED BLOOD CELLS 0 /100 WBC 0-0 (BEAKER) (test code = 413) NEUTROPHILS RELATIVE PERCENT 75 % (BEAKER) (test code = 429) LYMPHOCYTES RELATIVE PERCENT 13 % (BEAKER) (test code = 430) MONOCYTES RELATIVE PERCENT 10 % (BEAKER) (test code = 431) EOSINOPHILS RELATIVE PERCENT 1 % (BEAKER) (test code = 432) BASOPHILS RELATIVE PERCENT 1 % (BEAKER) (test code = 437) NEUTROPHILS ABSOLUTE COUNT 8.96 K/ L 1.78-5.38 H (BEAKER) (test code = 670) LYMPHOCYTES ABSOLUTE COUNT 1.50 K/ L 1.32-3.57 (BEAKER) (test code = 414) MONOCYTES ABSOLUTE COUNT (BEAKER) 1.21 K/ L 0.30-0.82 H (test code = 415) EOSINOPHILS ABSOLUTE COUNT 0.17 K/ L 0.04-0.54 (BEAKER) (test code = 416) BASOPHILS ABSOLUTE COUNT (BEAKER) 0.06 K/ L 0.01-0.08 (test code = 417) IMMATURE GRANULOCYTES-RELATIVE 0 % 0-1 PERCENT (BEAKER) (test code = 2801) POCT-GLUCOSE [id number] 23:29:00 Test Item Value Reference Range Interpretation Comments POC-GLUCOSE METER 93 mg/dL 70-110 : TESTED A T [facility] 6720 (BEAKER) (test code = [facility] [place], 1538) 47470: Metal Tube Cutter/Techni aaron ID = [id number] for MSIB I, MNCEDISI POCT-GLUCOSE [id number] 18:01:00 Test Item Value Reference Range Interpretation Comments POC-GLUCOSE METER 80 mg/dL 70-110 : TESTED A T [facility] 6720 (BEAKER) (test code = [facility], 1538) 69949: Metal Tube Cutter/Techni aaron ID = [id number] for GEM MOREJON POCT-GLUCOSE [id number] 12:05:00 Test Item Value Reference Range Interpretation Comments POC-GLUCOSE METER 77 mg/dL 70-110 : TESTED A T [facility] 6720 (BEAKER) (test code = [facility], 1538) 82610: Metal Tube Cutter/Techni aaron ID = [id number] for GEM MOREJON BASIC METABOLIC [id number] 11:33:00 Test Item Value Reference Range Interpretation Comments SODIUM (BEAKER) 147 meq/L 136-145 H (test code = 381) POTASSIUM (BEAKER) 2.5 meq/L 3.5-5.1 LL (test code = 379) CHLORIDE (BEAKER) 97 meq/L 98-107 L (test code = 382) CO2 (BEAKER) (test 41 meq/L 22-29 HH code = 355) BLOOD UREA NITROGEN 32 mg/dL 7-21 H (BEAKER) (test code = 354) CREATININE (BEAKER) 1.07 mg/dL 0.57-1.25 (test code = 358) GLUCOSE RANDOM 89 mg/dL 70-105 (BEAKER) (test code = 652) CALCIUM (BEAKER) 9.0 mg/dL 8.4-10.2 (test code = 697) EGFR (BEAKER) (test 70 mL/min/1.73 ESTIMA ARLENE GFR IS code = 1092) sq m NOT ACCURATE CREATININE CLEARANCE IN PREDICTING GLOMERULAR FILTRATION RATE . ESTIMATED GFR I S NOT APPLICABLE FOR DIALYSIS PATIEN TS. Metal Tube Cutter ID - SONIA [id number] 11:30:00 Test Item Value Reference Range Interpretation Comments PHOSPHORUS (BEAKER) (test code = 4.3 mg/dL 2.3-4.7 604) Metal Tube Cutter ID Sultana SCOTT [id number] 11:30:00 Test Item Value Reference Range Interpretation Comments MAGNESIUM (BEAKER) (test code = 1.7 mg/dL 1.6-2.6 627) Metal Tube Cutter ID - SONIA FCBC W/PLT COUNT & AUTO [id number] 11:20:00 Test Item Value Reference Range Interpretation Comments WHITE BLOOD CELL COUNT (BEAKER) 11.1 K/ L 3.5-10.5 H (test code = 775) RED BLOOD CELL COUNT (BEAKER) 4.03 M/ L 4.63-6.08 L (test code = 761) HEMOGLOBIN (BEAKER) (test code = 10.7 GM/DL 13.7-17.5 L 410) HEMATOCRIT (BEAKER) (test code = 34.4 % 40.1-51.0 L 411) MEAN CORPUSCULAR VOLUME (BEAKER) 85.4 fL 79.0-92.2 (test code = 753) MEAN CORPUSCULAR HEMOGLOBIN 26.6 pg 25.7-32.2 (BEAKER) (test code = 751) MEAN CORPUSCULAR HEMOGLOBIN CONC 31.1 GM/DL 32.3-36.5 L (BEAKER) (test code = 752) RED CELL DISTRIBUTION WIDTH 20.2 % 11.6-14.4 H (BEAKER) (test code = 412) PLATELET COUNT (BEAKER) (test 230 K/CU MM 150-450 code = 756) MEAN PLATELET VOLUME (BEAKER) 12.0 fL 9.4-12.4 (test code = 754) NUCLEATED RED BLOOD CELLS 0 /100 WBC 0-0 (BEAKER) (test code = 413) NEUTROPHILS RELATIVE PERCENT 73 % (BEAKER) (test code = 429) LYMPHOCYTES RELATIVE PERCENT 14 % (BEAKER) (test code = 430) MONOCYTES RELATIVE PERCENT 12 % (BEAKER) (test code = 431) EOSINOPHILS RELATIVE PERCENT 1 % (BEAKER) (test code = 432) BASOPHILS RELATIVE PERCENT 1 % (BEAKER) (test code = 437) NEUTROPHILS ABSOLUTE COUNT 8.08 K/ L 1.78-5.38 H (BEAKER) (test code = 670) LYMPHOCYTES ABSOLUTE COUNT 1.55 K/ L 1.32-3.57 (BEAKER) (test code = 414) MONOCYTES ABSOLUTE COUNT (BEAKER) 1.28 K/ L 0.30-0.82 H (test code = 415) EOSINOPHILS ABSOLUTE COUNT 0.12 K/ L 0.04-0.54 (BEAKER) (test code = 416) BASOPHILS ABSOLUTE COUNT (AKER) 0.05 K/ L 0.01-0.08 (test code = 417) IMMATURE GRANULOCYTES-RELATIVE 0 % 0-1 PERCENT (BEAKER) (test code = 2801) POCT-GLUCOSE [id number] 07:42:00 Test Item Value Reference Range Interpretation Comments POC-GLUCOSE METER 82 mg/dL 70-110 : [facility] (test code = [facility], [facility]8) 22542: Metal Tube Cutter/Techni aaron ID = [id number] for RAGL AND, LATOYA POCT-GLUCOSE [id number] 23:33:00 Test Item Value Reference Range Interpretation Comments POC-GLUCOSE METER 90 mg/dL 70-110 : TESTED A T [facility] 6720 (BEAKER) (test code = [facility], [facility]8) 36709: Metal Tube Cutter/Techni aaron ID = [id number] for RAGL AND, LATOYA POCT-GLUCOSE [id number] 18:34:00 Test Item Value Reference Range Interpretation Comments POC-GLUCOSE METER 83 mg/dL 70-110 : TESTED A T [facility] 6720 (BEAKER) (test code = [facility], 1538) 94083: Metal Tube Cutter/Techni aaron ID = [id number] for ANGU LO, GEM POCT-GLUCOSE [id number] 18:27:00 Test Item Value Reference Range Interpretation Comments POC-GLUCOSE METER 88 mg/dL 70-110 : [facility] 67[facility] (test code = [facility], 1538) 08286: Metal Tube Cutter/Techni aaron ID = [id number] for ANGU LO, GEM POCT-GLUCOSE [id number] 18:22:00 Test Item Value Reference Range Interpretation Comments POC-GLUCOSE METER 84 mg/dL 70-110 : TESTED A T [facility] 6720 (BEAKER) (test code = [facility], 1538) 54626: Metal Tube Cutter/Techni aaron ID = [id number] for ELIDAI BLACKWOOD PROTHROMBIN [id number] 11:01:00 Test Item Value Reference Range Interpretation Comments PROTIME (BEAKER) (test code = 17.8 seconds 11.9-14.2 H 759) INR (BEAKER) (test code = 370) 1.5 <=5.9 Effective 07/24/2018: PT Reference Range ChangeNew: 11.9-14.2 Previous: 11.7- 14.7RECOMMENDED COUMADIN/WARFARIN INR THERAPY RANGESSTANDARD DOSE: 2.0-3.0 Includes: PROPHYLAXIS for venous thrombosis, systemic embolization; TREATMENT for venous thrombosis and/or pulmonary embolus.HIGH RISK: Target INR is2.5-3.5 for patients wiht mechanical heart valves.HEPATITIS PANEL, [id number] 09:24:00 Test Item Value Reference Range Interpretation Comments HEPATITIS A IGM ANTIBODY (BEAKER) Reactive Nonreactive A (test code = 498) HEPATITIS B CORE IGM ANTIBODY Nonreactive Nonreactive (BEAKER) (test code = 645) HEPATITIS C ANTIBODY (BEAKER) Nonreactive Nonreactive (test code = 367) HEPATITIS B SURFACE ANTIGEN (2) Nonreactive Nonreactive (BEAKER) (test code = 2585) Metal Tube Cutter ID - SONIA FB-TYPE NATRIURETIC FACTOR (BNP)2019-05-31 09:06:00 Test Item Value Reference Range Interpretation Comments B-TYPE NATRIURETIC PEPTIDE 1536 pg/mL 0-100 H (BEAKER) (test code = 700) Metal Tube Cutter ID - ALMA WCOMPREHENSIVE METABOLIC [id number] 09:02:00 Test Item Value Reference Range Interpretation Comments TOTAL PROTEIN 6.7 gm/dL 6.0-8.3 Specimen moder ately (BEAKER) (test code = hemoly zed 770) ALBUMIN (BEAKER) 2.2 g/dL 3.5-5.0 L Specimen mo derately (test code = 1145) hemolyzed ALKALINE PHOSPHATASE 190 U/L 40-150 H (BEAKER) (test code = 346) BILIRUBIN TOTAL 1.3 mg/dL 0.2-1.2 H Specimen mod erately (BEAKER) (test code = hemoly zed 377) SODIUM (BEAKER) (test 143 meq/L 136-145 code = 381) POTASSIUM (BEAKER) 3.8 meq/L 3.5-5.1 Specimen moderately (test code = 379) hemolyzed CHLORIDE (BEAKER) 99 meq/L 98-107 (test code = 382) CO2 (BEAKER) (test 35 meq/L 22-29 H code = 355) BLOOD UREA NITROGEN 42 mg/dL 7-21 H (BEAKER) (test code = 354) CREATININE (BEAKER) 1.10 mg/dL 0.57-1.25 Specimen moderately (test code = 358) hemolyzed GLUCOSE RANDOM 84 mg/dL 70-105 (BEAKER) (test code = 652) CALCIUM (BEAKER) 8.9 mg/dL 8.4-10.2 (test code = 697) AST (SGOT) (BEAKER) 231 U/L 5-34 H Specimen moderately (test code = 353) hemolyzed ALT (SGPT) (BEAKER) 254 U/L 6-55 H Specimen moderately (test code = 347) hemolyzed EGFR (BEAKER) (test 67 mL/min/1.73 ESTIMA ARLENE GFR IS code = 1092) sq m NOT ACCURATE CREATININE CLEARANCE IN PREDICTING GLOMERULAR FILTRATION RATE . ESTIMATED GFR I S NOT APPLICABLE FOR DIALYSIS PATIEN TS. Metal Tube Cutter ID - ALMA WVANCOMYCIN LEVEL, [id number] 08:59:00 Test Item Value Reference Range Interpretation Comments VANCOMYCIN RANDOM (BEAKER) (test 18.6 ug/mL code = 523) Reference Range: No NormalsOperator ID - ALMA WCBC W/PLT COUNT & AUTO [id number] 08:43:00 Test Item Value Reference Range Interpretation Comments WHITE BLOOD CELL COUNT (BEAKER) 12.0 K/ L 3.5-10.5 H (test code = 775) RED BLOOD CELL COUNT (BEAKER) 4.13 M/ L 4.63-6.08 L (test code = 761) HEMOGLOBIN (BEAKER) (test code = 10.9 GM/DL 13.7-17.5 L 410) HEMATOCRIT (BEAKER) (test code = 35.9 % 40.1-51.0 L 411) MEAN CORPUSCULAR VOLUME (BEAKER) 86.9 fL 79.0-92.2 (test code = 753) MEAN CORPUSCULAR HEMOGLOBIN 26.4 pg 25.7-32.2 (BEAKER) (test code = 751) MEAN CORPUSCULAR HEMOGLOBIN CONC 30.4 GM/DL 32.3-36.5 L (BEAKER) (test code = 752) RED CELL DISTRIBUTION WIDTH 20.0 % 11.6-14.4 H (BEAKER) (test code = 412) PLATELET COUNT (BEAKER) (test 167 K/CU MM 150-450 code = 756) MEAN PLATELET VOLUME (BEAKER) 11.6 fL 9.4-12.4 (test code = 754) NUCLEATED RED BLOOD CELLS 0 /100 WBC 0-0 (BEAKER) (test code = 413) NEUTROPHILS RELATIVE PERCENT 74 % (BEAKER) (test code = 429) LYMPHOCYTES RELATIVE PERCENT 16 % (BEAKER) (test code = 430) MONOCYTES RELATIVE PERCENT 9 % (BEAKER) (test code = 431) EOSINOPHILS RELATIVE PERCENT 1 % (BEAKER) (test code = 432) BASOPHILS RELATIVE PERCENT 1 % (BEAKER) (test code = 437) NEUTROPHILS ABSOLUTE COUNT 8.78 K/ L 1.78-5.38 H (BEAKER) (test code = 670) LYMPHOCYTES ABSOLUTE COUNT 1.85 K/ L 1.32-3.57 (BEAKER) (test code = 414) MONOCYTES ABSOLUTE COUNT (BEAKER) 1.08 K/ L 0.30-0.82 H (test code = 415) EOSINOPHILS ABSOLUTE COUNT 0.13 K/ L 0.04-0.54 (BEAKER) (test code = 416) BASOPHILS ABSOLUTE COUNT (BEAKER) 0.07 K/ L 0.01-0.08 (test code = 417) IMMATURE GRANULOCYTES-RELATIVE 0 % 0-1 PERCENT (BEAKER) (test code = 2801) CREATININE, RANDOM [id number] 05:47:00 Test Item Value Reference Range Interpretation Comments CREATININE URINE (BEAKER) (test 24.9 mg/dL code = 375) Reference Range: No NormalsOperator ID - PIAYA LSODIUM, RANDOM [id number] 05:47:00 Test Item Value Reference Range Interpretation Comments SODIUM URINE (BEAKER) (test code = 59 meq/L 243) Reference Range: No NormalsOperator ID - PIAYA LUREA NITROGEN, RANDOM URINE 2019-05-31 05:47:00 Test Item Value Reference Range Interpretation Comments UREA NITROGEN URINE (BEAKER) (test 332 mg/dL code = 538) Reference Range: No NormalsOperator ID - PIAYA LPOCT-GLUCOSE [id number] 00:03:00 Test Item Value Reference Range Interpretation Comments POC-GLUCOSE METER 89 mg/dL 70-110 : TESTED A T [facility] 6720 (BEAKER) (test code = [facility] [place], 1538) 08180: Metal Tube Cutter/Techni aaron ID = [id number] for ELIDIA BLACKWOOD RAD, CHEST, 1 VIEW, NON [id number] 22:00:00Reason for exam:->Pt with noted OSH R [...] MDReport Verified Date/Time: 05/30/2019 22:00:23 COMPREHENSIVE METABOLIC [id number] 21:22:00 Test Item Value Reference Range Interpretation Comments TOTAL PROTEIN 6.3 gm/dL 6.0-8.3 (BEAKER) (test code = 770) ALBUMIN (BEAKER) 2.2 g/dL 3.5-5.0 L (test code = 1145) ALKALINE PHOSPHATASE 195 U/L 40-150 H (BEAKER) (test code = 346) BILIRUBIN TOTAL 1.1 mg/dL 0.2-1.2 (BEAKER) (test code = 377) SODIUM (BEAKER) (test 142 meq/L 136-145 code = 381) POTASSIUM (BEAKER) 2.8 meq/L 3.5-5.1 L (test code = 379) CHLORIDE (BEAKER) 97 meq/L 98-107 L (test code = 382) CO2 (BEAKER) (test 37 meq/L 22-29 H code = 355) BLOOD UREA NITROGEN 43 mg/dL 7-21 H (BEAKER) (test code = 354) CREATININE (BEAKER) 1.09 mg/dL 0.57-1.25 (test code = 358) GLUCOSE RANDOM 89 mg/dL 70-105 (BEAKER) (test code = 652) CALCIUM (BEAKER) 8.5 mg/dL 8.4-10.2 (test code = 697) AST (SGOT) (BEAKER) 215 U/L 5-34 H (test code = 353) ALT (SGPT) (BEAKER) 250 U/L 6-55 H (test code = 347) EGFR (BEAKER) (test 68 mL/min/1.73 ESTIMA ARLENE GFR IS code = 1092) sq m NOT ACCURATE CREATININE CLEARANCE IN PREDICTING GLOMERULAR FILTRATION RATE . ESTIMATED GFR I S NOT APPLICABLE FOR DIALYSIS PATIEN TS. Metal Tube Cutter ID - CDPPROTHROMBIN [id number] 21:14:00 Test Item Value Reference Range Interpretation Comments PROTIME (BEAKER) (test code = 17.7 seconds 11.9-14.2 H 759) INR (BEAKER) (test code = 370) 1.5 <=5.9 Effective 07/24/2018: PT Reference Range ChangeNew: 11.9-14.2 Previous: 11.7- 14.7RECOMMENDED COUMADIN/WARFARIN INR THERAPY RANGESSTANDARD DOSE: 2.0-3.0 Includes: PROPHYLAXIS for venous thrombosis, systemic embolization; TREATMENT for venous thrombosis and/or pulmonary embolus.HIGH RISK: Target INR is2.5-3.5 for patients wiht mechanical heart valves.CBC W/PLT COUNT & AUTO [id number] 21:08:00 Test Item Value Reference Range Interpretation Comments WHITE BLOOD CELL COUNT (BEAKER) 13.5 K/ L 3.5-10.5 H (test code = 775) RED BLOOD CELL COUNT (BEAKER) 3.99 M/ L 4.63-6.08 L (test code = 761) HEMOGLOBIN (BEAKER) (test code = 10.3 GM/DL 13.7-17.5 L 410) HEMATOCRIT (BEAKER) (test code = 33.7 % 40.1-51.0 L 411) MEAN CORPUSCULAR VOLUME (BEAKER) 84.5 fL 79.0-92.2 (test code = 753) MEAN CORPUSCULAR HEMOGLOBIN 25.8 pg 25.7-32.2 (BEAKER) (test code = 751) MEAN CORPUSCULAR HEMOGLOBIN CONC 30.6 GM/DL 32.3-36.5 L (BEAKER) (test code = 752) RED CELL DISTRIBUTION WIDTH 19.8 % 11.6-14.4 H (BEAKER) (test code = 412) PLATELET COUNT (BEAKER) (test 208 K/CU MM 150-450 code = 756) MEAN PLATELET VOLUME (BEAKER) 11.1 fL 9.4-12.4 (test code = 754) NUCLEATED RED BLOOD CELLS 0 /100 WBC 0-0 (BEAKER) (test code = 413) NEUTROPHILS RELATIVE PERCENT 80 % (BEAKER) (test code = 429) LYMPHOCYTES RELATIVE PERCENT 10 % (BEAKER) (test code = 430) MONOCYTES RELATIVE PERCENT 8 % (BEAKER) (test code = 431) EOSINOPHILS RELATIVE PERCENT 1 % (BEAKER) (test code = 432) BASOPHILS RELATIVE PERCENT 0 % (BEAKER) (test code = 437) NEUTROPHILS ABSOLUTE COUNT 10.80 K/ L 1.78-5.38 H (BEAKER) (test code = 670) LYMPHOCYTES ABSOLUTE COUNT 1.40 K/ L 1.32-3.57 (BEAKER) (test code = 414) MONOCYTES ABSOLUTE COUNT (BEAKER) 1.02 K/ L 0.30-0.82 H (test code = 415) EOSINOPHILS ABSOLUTE COUNT 0.14 K/ L 0.04-0.54 (BEAKER) (test code = 416) BASOPHILS ABSOLUTE COUNT (BEAKER) 0.06 K/ L 0.01-0.08 (test code = 417) IMMATURE GRANULOCYTES-RELATIVE 0 % 0-1 PERCENT (BEAKER) (test code = 2801) AFB CULTURE + SMEAR (NON-SPUTUM)2019-05-26 15:52:00 Test Item Value Reference Range Interpretation Comments CULTURE (BEAKER) (test No acid-fast bacilli code = 1095) isolated in 42 days AFB SMEAR (BEAKER) No acid fast bacilli (test code = 994) seen AFB CULTURE + SMEAR (NON-SPUTUM)2019-05-26 15:52:00 Test Item Value Reference Range Interpretation Comments CULTURE (BEAKER) (test No acid-fast bacilli code = 1095) isolated in 42 days AFB SMEAR (BEAKER) No acid fast bacilli (test code = 994) seen AFB CULTURE + SMEAR (NON-SPUTUM)2019-05-26 15:52:00 Test Item Value Reference Range Interpretation Comments CULTURE (BEAKER) (test No acid-fast bacilli code = 1095) isolated in 42 days AFB SMEAR (BEAKER) No acid fast bacilli (test code = 994) seen AFB CULTURE + SMEAR (NON-SPUTUM)2019-05-26 15:52:00 Test Item Value Reference Range Interpretation Comments CULTURE (BEAKER) (test No acid-fast bacilli code = 1095) isolated in 42 days AFB SMEAR (BEAKER) No acid fast bacilli (test code = 994) seen AFB CULTURE + SMEAR (NON-SPUTUM)2019-05-26 15:52:00 Test Item Value Reference Range Interpretation Comments CULTURE (BEAKER) (test No acid-fast bacilli code = 1095) isolated in 42 days AFB SMEAR (BEAKER) No acid fast bacilli (test code = 994) seen AFB CULTURE + SMEAR (NON-SPUTUM)2019-05-26 15:52:00 Test Item Value Reference Range Interpretation Comments CULTURE (BEAKER) (test No acid-fast bacilli code = 1095) isolated in 42 days AFB SMEAR (BEAKER) No acid fast bacilli (test code = 994) seen FUNGUS CULTURE + [id number] 16:19:00 Test Item Value Reference Range Interpretation Comments CULTURE (BEAKER) (test No fungus isolated in code = 1095) 28 days FUNGUS SMEAR (BEAKER) No fungi seen (test code = 1406) FUNGUS CULTURE + [id number] 16:19:00 Test Item Value Reference Range Interpretation Comments CULTURE (BEAKER) (test No fungus isolated in code = 1095) 28 days FUNGUS SMEAR (BEAKER) <1+ yeast (test code = 1406) FUNGUS CULTURE + [id number] 16:19:00 Test Item Value Reference Range Interpretation Comments CULTURE (BEAKER) (test No fungus isolated in code = 1095) 28 days FUNGUS SMEAR (BEAKER) <1+ yeast (test code = 1406) FUNGUS CULTURE + [id number] 16:19:00 Test Item Value Reference Range Interpretation Comments CULTURE (BEAKER) (test No fungus isolated in code = 1095) 28 days FUNGUS SMEAR (BEAKER) No fungi seen (test code = 1406) FUNGUS CULTURE + [id number] 16:19:00 Test Item Value Reference Range Interpretation Comments CULTURE (BEAKER) (test No fungus isolated in code = 1095) 28 days FUNGUS SMEAR (BEAKER) <1+ yeast (test code = 1406) RAD, CHEST, 2 [id number] 08:51:00Reason for Exam:->PLEURAL EFFUSIONFINAL REPORT EXAMINATION: PA [...] reactive right pleural change. Signed: Fredi Hua MDRepkansas city [facility] medical center Verified Date/Time: 05/09/2019 08:51:36 Reading Location: [facility] Reading Room [address] [place] [address] AFB CULTURE + SMEAR (NON-SPUTUM)2019-05-06 22:55:00 Test Item Value Reference Range Interpretation Comments CULTURE (BEAKER) (test No acid-fast bacilli code = 1095) isolated in 42 days AFB SMEAR (BEAKER) No acid fast bacilli (test code = 994) seen AFB CULTURE + SMEAR (NON-SPUTUM)2019-05-06 22:55:00 Test Item Value Reference Range Interpretation Comments CULTURE (BEAKER) (test No acid-fast bacilli code = 1095) isolated in 42 days AFB SMEAR (BEAKER) No acid fast bacilli (test code = 994) seen AFB CULTURE + SMEAR (NON-SPUTUM)2019-05-06 22:55:00 Test Item Value Reference Range Interpretation Comments CULTURE (BEAKER) (test No acid-fast bacilli code = 1095) isolated in 42 days AFB SMEAR (BEAKER) No acid fast bacilli (test code = 994) seen AFB CULTURE + SMEAR (NON-SPUTUM)2019-05-06 22:55:00 Test Item Value Reference Range Interpretation Comments CULTURE (BEAKER) (test No acid-fast bacilli code = 1095) isolated in 42 days AFB SMEAR (BEAKER) No acid fast bacilli (test code = 994) seen FUNGUS CULTURE + [id number] 17:35:00 Test Item Value Reference Range Interpretation Comments CULTURE (BEAKER) A <1+ Ana albicans (test code = 1095) FUNGUS SMEAR No fungi seen (BEAKER) (test code = 1406) RAD, CHEST, 1 VIEW, NON [id number] 08:25:00Reason for exam:->s/p R VATSShould this be [...] MDReport Verified Date/Time: 04/25/2019 08:25:05 Reading Location: [facility] Radiology Reading Room CBC W/PLT COUNT & AUTO [id number] 07:17:00 Test Item Value Reference Range Interpretation Comments WHITE BLOOD CELL COUNT (BEAKER) 10.6 K/ L 3.5-10.5 H (test code = 775) RED BLOOD CELL COUNT (BEAKER) 3.46 M/ L 4.63-6.08 L (test code = 761) HEMOGLOBIN (BEAKER) (test code = 9.9 GM/DL 13.7-17.5 L 410) HEMATOCRIT (BEAKER) (test code = 31.8 % 40.1-51.0 L 411) MEAN CORPUSCULAR VOLUME (BEAKER) 91.9 fL 79.0-92.2 (test code = 753) MEAN CORPUSCULAR HEMOGLOBIN 28.6 pg 25.7-32.2 (BEAKER) (test code = 751) MEAN CORPUSCULAR HEMOGLOBIN CONC 31.1 GM/DL 32.3-36.5 L (BEAKER) (test code = 752) RED CELL DISTRIBUTION WIDTH 18.6 % 11.6-14.4 H (BEAKER) (test code = 412) PLATELET COUNT (BEAKER) (test 295 K/CU MM 150-450 code = 756) MEAN PLATELET VOLUME (BEAKER) 11.6 fL 9.4-12.4 (test code = 754) NUCLEATED RED BLOOD CELLS 0 /100 WBC 0-0 (BEAKER) (test code = 413) NEUTROPHILS RELATIVE PERCENT 68 % (BEAKER) (test code = 429) LYMPHOCYTES RELATIVE PERCENT 17 % (BEAKER) (test code = 430) MONOCYTES RELATIVE PERCENT 10 % (BEAKER) (test code = 431) EOSINOPHILS RELATIVE PERCENT 4 % (BEAKER) (test code = 432) BASOPHILS RELATIVE PERCENT 1 % (BEAKER) (test code = 437) NEUTROPHILS ABSOLUTE COUNT 7.18 K/ L 1.78-5.38 H (BEAKER) (test code = 670) LYMPHOCYTES ABSOLUTE COUNT 1.77 K/ L 1.32-3.57 (BEAKER) (test code = 414) MONOCYTES ABSOLUTE COUNT (BEAKER) 1.06 K/ L 0.30-0.82 H (test code = 415) EOSINOPHILS ABSOLUTE COUNT 0.47 K/ L 0.04-0.54 (BEAKER) (test code = 416) BASOPHILS ABSOLUTE COUNT (BEAKER) 0.05 K/ L 0.01-0.08 (test code = 417) IMMATURE GRANULOCYTES-RELATIVE 1 % 0-1 PERCENT (BEAKER) (test code = 2801) [id number] 06:30:00 Test Item Value Reference Range Interpretation Comments PHOSPHORUS (BEAKER) (test code = 2.6 mg/dL 2.3-4.7 604) Metal Tube Cutter ID - EMILIE [id number] 06:30:00 Test Item Value Reference Range Interpretation Comments MAGNESIUM (BEAKER) (test code = 1.7 mg/dL 1.6-2.6 627) Metal Tube Cutter ID - EMILIE LBASIC METABOLIC [id number] 06:30:00 Test Item Value Reference Range Interpretation Comments SODIUM (BEAKER) 144 meq/L 136-145 (test code = 381) POTASSIUM (BEAKER) 3.3 meq/L 3.5-5.1 L (test code = 379) CHLORIDE (BEAKER) 110 meq/L 98-107 H (test code = 382) CO2 (BEAKER) (test 29 meq/L 22-29 code = 355) BLOOD UREA NITROGEN 22 mg/dL 7-21 H (BEAKER) (test code = 354) CREATININE (BEAKER) 0.74 mg/dL 0.57-1.25 (test code = 358) GLUCOSE RANDOM 127 mg/dL 70-105 H (BEAKER) (test code = 652) CALCIUM (BEAKER) 7.7 mg/dL 8.4-10.2 L (test code = 697) EGFR (BEAKER) (test 106 mL/min/1.73 ESTIM ATED GFR IS code = 1092) sq m NOT ACCURATE CREATININE CLEARANCE IN PREDICTING GLOMERULAR FILTRATION RATE . ESTIMATED GFR I S NOT APPLICABLE FOR DIALYSIS PATIEN TS. Metal Tube Cutter ID - EMILIE LRAD, CHEST, 1 VIEW, NON [id number] 09:38:00Reason for exam:->s/p R VATSShould this be [...] MDReport Verified Date/Time: 04/24/2019 09:38:07 Reading Location: [facility] Radiology Reading Room BASIC METABOLIC [id number] 06:26:00 Test Item Value Reference Range Interpretation Comments SODIUM (BEAKER) 143 meq/L 136-145 (test code = 381) POTASSIUM (BEAKER) 3.4 meq/L 3.5-5.1 L (test code = 379) CHLORIDE (BEAKER) 110 meq/L 98-107 H (test code = 382) CO2 (BEAKER) (test 27 meq/L 22-29 code = 355) BLOOD UREA NITROGEN 23 mg/dL 7-21 H (BEAKER) (test code = 354) CREATININE (BEAKER) 0.77 mg/dL 0.57-1.25 (test code = 358) GLUCOSE RANDOM 115 mg/dL 70-105 H (BEAKER) (test code = 652) CALCIUM (BEAKER) 7.6 mg/dL 8.4-10.2 L (test code = 697) EGFR (BEAKER) (test 102 mL/min/1.73 ESTIM ATED GFR IS code = 1092) sq m NOT ACCURATE CREATININE CLEARANCE IN PREDICTING GLOMERULAR FILTRATION RATE . ESTIMATED GFR I S NOT APPLICABLE FOR DIALYSIS PATIEN TS. Metal Tube Cutter ID - EMILIE LSpecimen slightly [id number] 06:19:00 Test Item Value Reference Range Interpretation Comments PHOSPHORUS (BEAKER) (test code = 3.3 mg/dL 2.3-4.7 604) Metal Tube Cutter ID - EMILIE [id number] 06:19:00 Test Item Value Reference Range Interpretation Comments MAGNESIUM (BEAKER) (test code = 1.8 mg/dL 1.6-2.6 627) Metal Tube Cutter ID - EMILIE LCBC W/PLT COUNT & AUTO [id number] 04:39:00 Test Item Value Reference Range Interpretation Comments WHITE BLOOD CELL COUNT (BEAKER) 10.8 K/ L 3.5-10.5 H (test code = 775) RED BLOOD CELL COUNT (BEAKER) 3.54 M/ L 4.63-6.08 L (test code = 761) HEMOGLOBIN (BEAKER) (test code = 9.8 GM/DL 13.7-17.5 L 410) HEMATOCRIT (BEAKER) (test code = 32.8 % 40.1-51.0 L 411) MEAN CORPUSCULAR VOLUME (BEAKER) 92.7 fL 79.0-92.2 H (test code = 753) MEAN CORPUSCULAR HEMOGLOBIN 27.7 pg 25.7-32.2 (BEAKER) (test code = 751) MEAN CORPUSCULAR HEMOGLOBIN CONC 29.9 GM/DL 32.3-36.5 L (BEAKER) (test code = 752) RED CELL DISTRIBUTION WIDTH 18.7 % 11.6-14.4 H (BEAKER) (test code = 412) PLATELET COUNT (BEAKER) (test 287 K/CU MM 150-450 code = 756) MEAN PLATELET VOLUME (BEAKER) 10.5 fL 9.4-12.4 (test code = 754) NUCLEATED RED BLOOD CELLS 0 /100 WBC 0-0 (BEAKER) (test code = 413) NEUTROPHILS RELATIVE PERCENT 62 % (BEAKER) (test code = 429) LYMPHOCYTES RELATIVE PERCENT 24 % (BEAKER) (test code = 430) MONOCYTES RELATIVE PERCENT 9 % (BEAKER) (test code = 431) EOSINOPHILS RELATIVE PERCENT 5 % (BEAKER) (test code = 432) BASOPHILS RELATIVE PERCENT 1 % (BEAKER) (test code = 437) NEUTROPHILS ABSOLUTE COUNT 6.66 K/ L 1.78-5.38 H (BEAKER) (test code = 670) LYMPHOCYTES ABSOLUTE COUNT 2.53 K/ L 1.32-3.57 (BEAKER) (test code = 414) MONOCYTES ABSOLUTE COUNT (BEAKER) 0.96 K/ L 0.30-0.82 H (test code = 415) EOSINOPHILS ABSOLUTE COUNT 0.54 K/ L 0.04-0.54 (BEAKER) (test code = 416) BASOPHILS ABSOLUTE COUNT (BEAKER) 0.05 K/ L 0.01-0.08 (test code = 417) IMMATURE GRANULOCYTES-RELATIVE 0 % 0-1 PERCENT (BEAKER) (test code = 2801) FL, ESOPH, SWALLOW FUNCTION, WITH CINE OR [id number] 14:55:00Reason for exam:->dysphagiaFINAL REPORT Modified barium swallow [...] [place] Verified Date/Time: 04/23/2019 14:55:57 [facility] [address] [facility] [place] [facility] [place] [place], NON [id number] 14:41:00Reason for exam:->s/p ct removalShould this be [...] MDReport Verified Date/Time: 04/23/2019 14:41:23 Reading Location: [facility] Reading Room RAD, CHEST, 1 VIEW, NON [id number] 09:12:00Reason for exam:->s/p R VATSShould this be [...] MDReport Verified Date/Time: 04/23/2019 09:12:53 Reading Location: [facility] Radiology Reading Room BASIC METABOLIC [id number] 05:25:00 Test Item Value Reference Range Interpretation Comments SODIUM (BEAKER) 144 meq/L 136-145 (test code = 381) POTASSIUM (BEAKER) 3.3 meq/L 3.5-5.1 L (test code = 379) CHLORIDE (BEAKER) 111 meq/L 98-107 H (test code = 382) CO2 (BEAKER) (test 29 meq/L 22-29 code = 355) BLOOD UREA NITROGEN 24 mg/dL 7-21 H (BEAKER) (test code = 354) CREATININE (BEAKER) 0.78 mg/dL 0.57-1.25 (test code = 358) GLUCOSE RANDOM 118 mg/dL 70-105 H (BEAKER) (test code = 652) CALCIUM (BEAKER) 7.5 mg/dL 8.4-10.2 L (test code = 697) EGFR (BEAKER) (test 100 mL/min/1.73 ESTIM ATED GFR IS code = 1092) sq m NOT ACCURATE CREATININE CLEARANCE IN PREDICTING GLOMERULAR FILTRATION RATE . ESTIMATED GFR I S NOT APPLICABLE FOR DIALYSIS PATIEN TS. Metal Tube Cutter ID - ELISSA [id number] 05:24:00 Test Item Value Reference Range Interpretation Comments PREALBUMIN (BEAKER) (test code = 586) 7 mg/dL 14-45 L Metal Tube Cutter ID - ELISSA [id number] 05:23:00 Test Item Value Reference Range Interpretation Comments PHOSPHORUS (BEAKER) (test code = 2.8 mg/dL 2.3-4.7 604) Metal Tube Cutter ID - ELISSA [id number] 05:23:00 Test Item Value Reference Range Interpretation Comments MAGNESIUM (BEAKER) (test code = 1.9 mg/dL 1.6-2.6 627) Metal Tube Cutter ID - ELISSA MCBC W/PLT COUNT & AUTO [id number] 04:58:00 Test Item Value Reference Range Interpretation Comments WHITE BLOOD CELL COUNT (BEAKER) 11.1 K/ L 3.5-10.5 H (test code = 775) RED BLOOD CELL COUNT (BEAKER) 3.34 M/ L 4.63-6.08 L (test code = 761) HEMOGLOBIN (BEAKER) (test code = 9.4 GM/DL 13.7-17.5 L 410) HEMATOCRIT (BEAKER) (test code = 30.7 % 40.1-51.0 L 411) MEAN CORPUSCULAR VOLUME (BEAKER) 91.9 fL 79.0-92.2 (test code = 753) MEAN CORPUSCULAR HEMOGLOBIN 28.1 pg 25.7-32.2 (BEAKER) (test code = 751) MEAN CORPUSCULAR HEMOGLOBIN CONC 30.6 GM/DL 32.3-36.5 L (BEAKER) (test code = 752) RED CELL DISTRIBUTION WIDTH 19.0 % 11.6-14.4 H (BEAKER) (test code = 412) PLATELET COUNT (BEAKER) (test 271 K/CU MM 150-450 code = 756) MEAN PLATELET VOLUME (BEAKER) 10.9 fL 9.4-12.4 (test code = 754) NUCLEATED RED BLOOD CELLS 0 /100 WBC 0-0 (BEAKER) (test code = 413) NEUTROPHILS RELATIVE PERCENT 66 % (BEAKER) (test code = 429) LYMPHOCYTES RELATIVE PERCENT 19 % (BEAKER) (test code = 430) MONOCYTES RELATIVE PERCENT 11 % (BEAKER) (test code = 431) EOSINOPHILS RELATIVE PERCENT 4 % (BEAKER) (test code = 432) BASOPHILS RELATIVE PERCENT 1 % (BEAKER) (test code = 437) NEUTROPHILS ABSOLUTE COUNT 7.29 K/ L 1.78-5.38 H (BEAKER) (test code = 670) LYMPHOCYTES ABSOLUTE COUNT 2.15 K/ L 1.32-3.57 (BEAKER) (test code = 414) MONOCYTES ABSOLUTE COUNT (BEAKER) 1.16 K/ L 0.30-0.82 H (test code = 415) EOSINOPHILS ABSOLUTE COUNT 0.40 K/ L 0.04-0.54 (BEAKER) (test code = 416) BASOPHILS ABSOLUTE COUNT (BEAKER) 0.05 K/ L 0.01-0.08 (test code = 417) IMMATURE GRANULOCYTES-RELATIVE 1 % 0-1 PERCENT (BEAKER) (test code = 2801) RAD, CHEST, 1 VIEW, NON [id number] 10:13:00Reason for exam:->s/p R VATSShould this be [...] Signed: JR Jara Robert MDRepanni Verified Date/Time: 04/22/2019 10:13:43 Reading Location: [facility] Radiology Reading Room 10:13 AMBASIC METABOLIC [id number] 04:59:00 Test Item Value Reference Range Interpretation Comments SODIUM (BEAKER) 146 meq/L 136-145 H (test code = 381) POTASSIUM (BEAKER) 4.0 meq/L 3.5-5.1 (test code = 379) CHLORIDE (BEAKER) 115 meq/L 98-107 H (test code = 382) CO2 (BEAKER) (test 29 meq/L 22-29 code = 355) BLOOD UREA NITROGEN 21 mg/dL 7-21 (BEAKER) (test code = 354) CREATININE (BEAKER) 0.74 mg/dL 0.57-1.25 (test code = 358) GLUCOSE RANDOM 108 mg/dL 70-105 H (BEAKER) (test code = 652) CALCIUM (BEAKER) 7.5 mg/dL 8.4-10.2 L (test code = 697) EGFR (BEAKER) (test 106 mL/min/1.73 ESTIM ATED GFR IS code = 1092) sq m NOT ACCURATE CREATININE CLEARANCE IN PREDICTING GLOMERULAR FILTRATION RATE . ESTIMATED GFR I S NOT APPLICABLE FOR DIALYSIS PATIEN TS. Metal Tube Cutter ID - ELISSA [id number] 04:57:00 Test Item Value Reference Range Interpretation Comments PHOSPHORUS (BEAKER) (test code = 2.7 mg/dL 2.3-4.7 604) Metal Tube Cutter ID - ELISSA [id number] 04:57:00 Test Item Value Reference Range Interpretation Comments MAGNESIUM (BEAKER) (test code = 1.9 mg/dL 1.6-2.6 627) Metal Tube Cutter ID - ELISSA MCBC W/PLT COUNT & AUTO [id number] 03:33:00 Test Item Value Reference Range Interpretation Comments WHITE BLOOD CELL COUNT (BEAKER) 10.5 K/ L 3.5-10.5 (test code = 775) RED BLOOD CELL COUNT (BEAKER) 3.53 M/ L 4.63-6.08 L (test code = 761) HEMOGLOBIN (BEAKER) (test code = 10.0 GM/DL 13.7-17.5 L 410) HEMATOCRIT (BEAKER) (test code = 32.8 % 40.1-51.0 L 411) MEAN CORPUSCULAR VOLUME (BEAKER) 92.9 fL 79.0-92.2 H (test code = 753) MEAN CORPUSCULAR HEMOGLOBIN 28.3 pg 25.7-32.2 (BEAKER) (test code = 751) MEAN CORPUSCULAR HEMOGLOBIN CONC 30.5 GM/DL 32.3-36.5 L (BEAKER) (test code = 752) RED CELL DISTRIBUTION WIDTH 19.2 % 11.6-14.4 H (BEAKER) (test code = 412) PLATELET COUNT (BEAKER) (test 272 K/CU MM 150-450 code = 756) MEAN PLATELET VOLUME (BEAKER) 11.1 fL 9.4-12.4 (test code = 754) NUCLEATED RED BLOOD CELLS 0 /100 WBC 0-0 (BEAKER) (test code = 413) NEUTROPHILS RELATIVE PERCENT 67 % (BEAKER) (test code = 429) LYMPHOCYTES RELATIVE PERCENT 18 % (BEAKER) (test code = 430) MONOCYTES RELATIVE PERCENT 11 % (BEAKER) (test code = 431) EOSINOPHILS RELATIVE PERCENT 5 % (BEAKER) (test code = 432) BASOPHILS RELATIVE PERCENT 1 % (BEAKER) (test code = 437) NEUTROPHILS ABSOLUTE COUNT 7.00 K/ L 1.78-5.38 H (BEAKER) (test code = 670) LYMPHOCYTES ABSOLUTE COUNT 1.84 K/ L 1.32-3.57 (BEAKER) (test code = 414) MONOCYTES ABSOLUTE COUNT (BEAKER) 1.10 K/ L 0.30-0.82 H (test code = 415) EOSINOPHILS ABSOLUTE COUNT 0.47 K/ L 0.04-0.54 (BEAKER) (test code = 416) BASOPHILS ABSOLUTE COUNT (BEAKER) 0.06 K/ L 0.01-0.08 (test code = 417) IMMATURE GRANULOCYTES-RELATIVE 0 % 0-1 PERCENT (BEAKER) (test code = 2801) ANAEROBIC [id number] 17:25:00 Test Item Value Reference Range Interpretation Comments CULTURE (BEAKER) (test No anaerobes isolated code = 1095) ANAEROBIC [id number] 17:24:00 Test Item Value Reference Range Interpretation Comments CULTURE (BEAKER) (test No anaerobes isolated code = 1095) ANAEROBIC [id number] 17:24:00 Test Item Value Reference Range Interpretation Comments CULTURE (BEAKER) (test No anaerobes isolated code = 1095) ANAEROBIC [id number] 17:23:00 Test Item Value Reference Range Interpretation Comments CULTURE (BEAKER) (test No anaerobes isolated code = 1095) ANAEROBIC [id number] 17:23:00 Test Item Value Reference Range Interpretation Comments CULTURE (BEAKER) (test No anaerobes isolated code = 1095) BASIC METABOLIC [id number] 12:47:00 Test Item Value Reference Range Interpretation Comments SODIUM (BEAKER) 146 meq/L 136-145 H (test code = 381) POTASSIUM (BEAKER) 3.8 meq/L 3.5-5.1 Specimen slightly (test code = 379) hemolyzed CHLORIDE (BEAKER) 111 meq/L 98-107 H (test code = 382) CO2 (BEAKER) (test 31 meq/L 22-29 H code = 355) BLOOD UREA NITROGEN 23 mg/dL 7-21 H (BEAKER) (test code = 354) CREATININE (BEAKER) 0.71 mg/dL 0.57-1.25 Specimen slightly (test code = 358) hemolyzed GLUCOSE RANDOM 92 mg/dL 70-105 (BEAKER) (test code = 652) CALCIUM (BEAKER) 7.5 mg/dL 8.4-10.2 L (test code = 697) EGFR (BEAKER) (test 112 mL/min/1.73 ESTIM ATED GFR IS code = 1092) sq m NOT ACCURATE CREATININE CLEARANCE IN PREDICTING GLOMERULAR FILTRATION RATE . ESTIMATED GFR I S NOT APPLICABLE FOR DIALYSIS PATIEN TS. Metal Tube Cutter ID Sultana SCOTT [id number] 12:46:00 Test Item Value Reference Range Interpretation Comments MAGNESIUM (BEAKER) 2.2 mg/dL 1.6-2.6 Specimen slightly (test code = 627) hemolyzed Metal Tube Cutter ID Sultana SCOTT FBASIC METABOLIC [id number] 05:36:00 Test Item Value Reference Range Interpretation Comments SODIUM (BEAKER) 144 meq/L 136-145 (test code = 381) POTASSIUM (BEAKER) 3.4 meq/L 3.5-5.1 L (test code = 379) CHLORIDE (BEAKER) 111 meq/L 98-107 H (test code = 382) CO2 (BEAKER) (test 28 meq/L 22-29 code = 355) BLOOD UREA NITROGEN 22 mg/dL 7-21 H (BEAKER) (test code = 354) CREATININE (BEAKER) 0.71 mg/dL 0.57-1.25 (test code = 358) GLUCOSE RANDOM 102 mg/dL 70-105 (BEAKER) (test code = 652) CALCIUM (BEAKER) 7.4 mg/dL 8.4-10.2 L (test code = 697) EGFR (BEAKER) (test 112 mL/min/1.73 ESTIM ATED GFR IS code = 1092) sq m NOT ACCURATE CREATININE CLEARANCE IN PREDICTING GLOMERULAR FILTRATION RATE . ESTIMATED GFR I S NOT APPLICABLE FOR DIALYSIS PATIEN TS. Metal Tube Cutter ID Sultana FLORES [id number] 05:32:00 Test Item Value Reference Range Interpretation Comments PHOSPHORUS (BEAKER) (test code = 3.4 mg/dL 2.3-4.7 604) Metal Tube Cutter ID Sultana FLORES [id number] 05:32:00 Test Item Value Reference Range Interpretation Comments MAGNESIUM (BEAKER) (test code = 2.0 mg/dL 1.6-2.6 627) Metal Tube Cutter ID Sultana FLORES WCBC W/PLT COUNT & AUTO [id number] 05:07:00 Test Item Value Reference Range Interpretation Comments WHITE BLOOD CELL COUNT (BEAKER) 7.3 K/ L 3.5-10.5 (test code = 775) RED BLOOD CELL COUNT (BEAKER) 3.51 M/ L 4.63-6.08 L (test code = 761) HEMOGLOBIN (BEAKER) (test code = 10.0 GM/DL 13.7-17.5 L 410) HEMATOCRIT (BEAKER) (test code = 32.5 % 40.1-51.0 L 411) MEAN CORPUSCULAR VOLUME (BEAKER) 92.6 fL 79.0-92.2 H (test code = 753) MEAN CORPUSCULAR HEMOGLOBIN 28.5 pg 25.7-32.2 (BEAKER) (test code = 751) MEAN CORPUSCULAR HEMOGLOBIN CONC 30.8 GM/DL 32.3-36.5 L (BEAKER) (test code = 752) RED CELL DISTRIBUTION WIDTH 19.0 % 11.6-14.4 H (BEAKER) (test code = 412) PLATELET COUNT (BEAKER) (test 221 K/CU MM 150-450 code = 756) MEAN PLATELET VOLUME (BEAKER) 10.6 fL 9.4-12.4 (test code = 754) NUCLEATED RED BLOOD CELLS 0 /100 WBC 0-0 (BEAKER) (test code = 413) NEUTROPHILS RELATIVE PERCENT 47 % (BEAKER) (test code = 429) LYMPHOCYTES RELATIVE PERCENT 32 % (BEAKER) (test code = 430) MONOCYTES RELATIVE PERCENT 13 % (BEAKER) (test code = 431) EOSINOPHILS RELATIVE PERCENT 7 % (BEAKER) (test code = 432) BASOPHILS RELATIVE PERCENT 1 % (BEAKER) (test code = 437) NEUTROPHILS ABSOLUTE COUNT 3.43 K/ L 1.78-5.38 (BEAKER) (test code = 670) LYMPHOCYTES ABSOLUTE COUNT 2.31 K/ L 1.32-3.57 (BEAKER) (test code = 414) MONOCYTES ABSOLUTE COUNT (BEAKER) 0.95 K/ L 0.30-0.82 H (test code = 415) EOSINOPHILS ABSOLUTE COUNT 0.54 K/ L 0.04-0.54 (BEAKER) (test code = 416) BASOPHILS ABSOLUTE COUNT (BEAKER) 0.04 K/ L 0.01-0.08 (test code = 417) IMMATURE GRANULOCYTES-RELATIVE 0 % 0-1 PERCENT (BEAKER) (test code = 2801) RAD, CHEST, 1 VIEW, NON [id number] 04:30:00Reason for exam:->s/p R VATSShould this be [...] MDReport Verified Date/Time: 04/21/2019 04:30:21 BASIC METABOLIC [id number] 16:21:00 Test Item Value Reference Range Interpretation Comments SODIUM (BEAKER) 146 meq/L 136-145 H (test code = 381) POTASSIUM (BEAKER) 3.6 meq/L 3.5-5.1 (test code = 379) CHLORIDE (BEAKER) 111 meq/L 98-107 H (test code = 382) CO2 (BEAKER) (test 32 meq/L 22-29 H code = 355) BLOOD UREA NITROGEN 22 mg/dL 7-21 H (BEAKER) (test code = 354) CREATININE (BEAKER) 0.74 mg/dL 0.57-1.25 (test code = 358) GLUCOSE RANDOM 118 mg/dL 70-105 H (BEAKER) (test code = 652) CALCIUM (BEAKER) 7.7 mg/dL 8.4-10.2 L (test code = 697) EGFR (BEAKER) (test 106 mL/min/1.73 ESTIM ATED GFR IS code = 1092) sq m NOT ACCURATE CREATININE CLEARANCE IN PREDICTING GLOMERULAR FILTRATION RATE . ESTIMATED GFR I S NOT APPLICABLE FOR DIALYSIS PATIEN TS. Metal Tube Cutter ID - SONIA [id number] 15:52:00 Test Item Value Reference Range Interpretation Comments PHOSPHORUS (BEAKER) (test code = 2.7 mg/dL 2.3-4.7 604) Metal Tube Cutter ID - SONIA [id number] 15:52:00 Test Item Value Reference Range Interpretation Comments MAGNESIUM (BEAKER) (test code = 2.0 mg/dL 1.6-2.6 627) Metal Tube Cutter ID - SONIA FCBC W/PLT COUNT & AUTO [id number] 15:27:00 Test Item Value Reference Range Interpretation Comments WHITE BLOOD CELL COUNT (BEAKER) 8.5 K/ L 3.5-10.5 (test code = 775) RED BLOOD CELL COUNT (BEAKER) 3.26 M/ L 4.63-6.08 L (test code = 761) HEMOGLOBIN (BEAKER) (test code = 9.4 GM/DL 13.7-17.5 L 410) HEMATOCRIT (BEAKER) (test code = 29.4 % 40.1-51.0 L 411) MEAN CORPUSCULAR VOLUME (BEAKER) 90.2 fL 79.0-92.2 (test code = 753) MEAN CORPUSCULAR HEMOGLOBIN 28.8 pg 25.7-32.2 (BEAKER) (test code = 751) MEAN CORPUSCULAR HEMOGLOBIN CONC 32.0 GM/DL 32.3-36.5 L (BEAKER) (test code = 752) RED CELL DISTRIBUTION WIDTH 18.8 % 11.6-14.4 H (BEAKER) (test code = 412) PLATELET COUNT (BEAKER) (test 244 K/CU MM 150-450 code = 756) MEAN PLATELET VOLUME (BEAKER) 10.6 fL 9.4-12.4 (test code = 754) NUCLEATED RED BLOOD CELLS 0 /100 WBC 0-0 (BEAKER) (test code = 413) NEUTROPHILS RELATIVE PERCENT 60 % (BEAKER) (test code = 429) LYMPHOCYTES RELATIVE PERCENT 22 % (BEAKER) (test code = 430) MONOCYTES RELATIVE PERCENT 13 % (BEAKER) (test code = 431) EOSINOPHILS RELATIVE PERCENT 4 % (BEAKER) (test code = 432) BASOPHILS RELATIVE PERCENT 1 % (BEAKER) (test code = 437) NEUTROPHILS ABSOLUTE COUNT 5.10 K/ L 1.78-5.38 (BEAKER) (test code = 670) LYMPHOCYTES ABSOLUTE COUNT 1.84 K/ L 1.32-3.57 (BEAKER) (test code = 414) MONOCYTES ABSOLUTE COUNT (BEAKER) 1.11 K/ L 0.30-0.82 H (test code = 415) EOSINOPHILS ABSOLUTE COUNT 0.37 K/ L 0.04-0.54 (BEAKER) (test code = 416) BASOPHILS ABSOLUTE COUNT (BEAKER) 0.04 K/ L 0.01-0.08 (test code = 417) IMMATURE GRANULOCYTES-RELATIVE 0 % 0-1 PERCENT (BEAKER) (test code = 2801) POCT-GLUCOSE [id number] 12:28:00 Test Item Value Reference Range Interpretation Comments POC-GLUCOSE METER 104 mg/dL 70-110 : TESTED A T BSC 6720 (BEAKER) (test code = [place], 1538) [address]: Metal Tube Cutter/Techni aaron ID = [id number] for [facility] RAD, CHEST, 1 VIEW, NON [id number] 08:05:00Reason for exam:->s/p R VATSShould this be [...] contours. Additional findings: None. Signed: Alicia Garcia Verified Date/Time: 04/20/2019 08:05:30 Reading Location: [address] Neuro Reading Room BASIC METABOLIC PANEL 2019-04-20 05:14:00 Test Item Value Reference Range Interpretation Comments SODIUM (BEAKER) 143 meq/L 136-145 (test code = 381) POTASSIUM (BEAKER) 3.7 meq/L 3.5-5.1 (test code = 379) CHLORIDE (BEAKER) 112 meq/L 98-107 H (test code = 382) CO2 (BEAKER) (test 27 meq/L 22-29 code = 355) BLOOD UREA NITROGEN 24 mg/dL 7-21 H (BEAKER) (test code = 354) CREATININE (BEAKER) 0.70 mg/dL 0.57-1.25 (test code = 358) GLUCOSE RANDOM 129 mg/dL 70-105 H (BEAKER) (test code = 652) CALCIUM (BEAKER) 7.4 mg/dL 8.4-10.2 L (test code = 697) EGFR (BEAKER) (test 114 mL/min/1.73 ESTIM ATED GFR IS code = 1092) sq m NOT ACCURATE CREATININE CLEARANCE IN PREDICTING GLOMERULAR FILTRATION RATE . ESTIMATED GFR I S NOT APPLICABLE FOR DIALYSIS PATIEN TS. Metal Tube Cutter ID - [id number] 04:57:00 Test Item Value Reference Range Interpretation Comments PHOSPHORUS (BEAKER) (test code = 3.9 mg/dL 2.3-4.7 604) Metal Tube Cutter ID - [id number] 04:57:00 Test Item Value Reference Range Interpretation Comments MAGNESIUM (BEAKER) (test code = 2.2 mg/dL 1.6-2.6 627) Metal Tube Cutter ID - DBCBC W/PLT COUNT & AUTO [id number] 03:45:00 Test Item Value Reference Range Interpretation Comments WHITE BLOOD CELL COUNT (BEAKER) 7.0 K/ L 3.5-10.5 (test code = 775) RED BLOOD CELL COUNT (BEAKER) 3.09 M/ L 4.63-6.08 L (test code = 761) HEMOGLOBIN (BEAKER) (test code = 8.6 GM/DL 13.7-17.5 L 410) HEMATOCRIT (BEAKER) (test code = 28.5 % 40.1-51.0 L 411) MEAN CORPUSCULAR VOLUME (BEAKER) 92.2 fL 79.0-92.2 (test code = 753) MEAN CORPUSCULAR HEMOGLOBIN 27.8 pg 25.7-32.2 (BEAKER) (test code = 751) MEAN CORPUSCULAR HEMOGLOBIN CONC 30.2 GM/DL 32.3-36.5 L (BEAKER) (test code = 752) RED CELL DISTRIBUTION WIDTH 18.8 % 11.6-14.4 H (BEAKER) (test code = 412) PLATELET COUNT (BEAKER) (test 203 K/CU MM 150-450 code = 756) MEAN PLATELET VOLUME (BEAKER) 10.7 fL 9.4-12.4 (test code = 754) NUCLEATED RED BLOOD CELLS 0 /100 WBC 0-0 (BEAKER) (test code = 413) NEUTROPHILS RELATIVE PERCENT 62 % (BEAKER) (test code = 429) LYMPHOCYTES RELATIVE PERCENT 20 % (BEAKER) (test code = 430) MONOCYTES RELATIVE PERCENT 12 % (BEAKER) (test code = 431) EOSINOPHILS RELATIVE PERCENT 5 % (BEAKER) (test code = 432) BASOPHILS RELATIVE PERCENT 1 % (BEAKER) (test code = 437) NEUTROPHILS ABSOLUTE COUNT 4.33 K/ L 1.78-5.38 (BEAKER) (test code = 670) LYMPHOCYTES ABSOLUTE COUNT 1.43 K/ L 1.32-3.57 (BEAKER) (test code = 414) MONOCYTES ABSOLUTE COUNT (BEAKER) 0.86 K/ L 0.30-0.82 H (test code = 415) EOSINOPHILS ABSOLUTE COUNT 0.32 K/ L 0.04-0.54 (BEAKER) (test code = 416) BASOPHILS ABSOLUTE COUNT (BEAKER) 0.04 K/ L 0.01-0.08 (test code = 417) IMMATURE GRANULOCYTES-RELATIVE 0 % 0-1 PERCENT (BEAKER) (test code = 2801) POCT-GLUCOSE [id number] 00:19:00 Test Item Value Reference Range Interpretation Comments POC-GLUCOSE METER 115 mg/dL 70-110 H : TESTED A T [facility] 6720 (BEAKER) (test code = ILDA Calvert [facility], 1538) [address]: Metal Tube Cutter/Techni aaron ID = [id number] for SD MS, SENORA FUNGUS CULTURE + [id number] 18:47:00 Test Item Value Reference Range Interpretation Comments CULTURE (BEAKER) (test No fungus isolated in code = 1095) 28 days FUNGUS SMEAR (BEAKER) No fungi seen (test code = 1406) FUNGUS CULTURE + [id number] 18:47:00 Test Item Value Reference Range Interpretation Comments CULTURE (BEAKER) (test No fungus isolated in code = 1095) 28 days FUNGUS SMEAR (BEAKER) No fungi seen (test code = 1406) FUNGUS CULTURE + [id number] 18:35:00 Test Item Value Reference Range Interpretation Comments CULTURE (BEAKER) (test No fungus isolated in code = 1095) 28 days FUNGUS SMEAR (BEAKER) No fungi seen (test code = 1406) [id number] 18:02:00 Test Item Value Reference Range Interpretation Comments PHOSPHORUS (BEAKER) (test code = 1.3 mg/dL 2.3-4.7 LL 604) [employer] T[employer] ANGELI SCOTT FBASIC METABOLIC [id number] 17:59:00 Test Item Value Reference Range Interpretation Comments SODIUM (BEAKER) 144 meq/L 136-145 (test code = 381) POTASSIUM (BEAKER) 3.7 meq/L 3.5-5.1 (test code = 379) CHLORIDE (BEAKER) 111 meq/L 98-107 H (test code = 382) CO2 (BEAKER) (test 30 meq/L 22-29 H code = 355) BLOOD UREA NITROGEN 24 mg/dL 7-21 H (BEAKER) (test code = 354) CREATININE (BEAKER) 0.71 mg/dL 0.57-1.25 (test code = 358) GLUCOSE RANDOM 119 mg/dL 70-105 H (BEAKER) (test code = 652) CALCIUM (BEAKER) 7.8 mg/dL 8.4-10.2 L (test code = 697) EGFR (BEAKER) (test 112 mL/min/1.73 ESTIM ATED GFR IS code = 1092) sq m NOT ACCURATE CREATININE CLEARANCE IN PREDICTING GLOMERULAR FILTRATION RATE . ESTIMATED GFR I S NOT APPLICABLE FOR DIALYSIS PATIEN TS. [employer] ANGELI SCOTT [id number] 17:58:00 Test Item Value Reference Range Interpretation Comments MAGNESIUM (BEAKER) (test code = 2.1 mg/dL 1.6-2.6 627) [employer] T[employer] ANGELI SCOTT FCBC W/PLT COUNT & AUTO [id number] 17:41:00 Test Item Value Reference Range Interpretation Comments WHITE BLOOD CELL COUNT (BEAKER) 8.7 K/ L 3.5-10.5 (test code = 775) RED BLOOD CELL COUNT (BEAKER) 3.36 M/ L 4.63-6.08 L (test code = 761) HEMOGLOBIN (BEAKER) (test code = 9.7 GM/DL 13.7-17.5 L 410) HEMATOCRIT (BEAKER) (test code = 29.9 % 40.1-51.0 L 411) MEAN CORPUSCULAR VOLUME (BEAKER) 89.0 fL 79.0-92.2 (test code = 753) MEAN CORPUSCULAR HEMOGLOBIN 28.9 pg 25.7-32.2 (BEAKER) (test code = 751) MEAN CORPUSCULAR HEMOGLOBIN CONC 32.4 GM/DL 32.3-36.5 (BEAKER) (test code = 752) RED CELL DISTRIBUTION WIDTH 18.6 % 11.6-14.4 H (BEAKER) (test code = 412) PLATELET COUNT (BEAKER) (test 223 K/CU MM 150-450 code = 756) MEAN PLATELET VOLUME (BEAKER) 10.8 fL 9.4-12.4 (test code = 754) NUCLEATED RED BLOOD CELLS 0 /100 WBC 0-0 (BEAKER) (test code = 413) NEUTROPHILS RELATIVE PERCENT 63 % (BEAKER) (test code = 429) LYMPHOCYTES RELATIVE PERCENT 21 % (BEAKER) (test code = 430) MONOCYTES RELATIVE PERCENT 13 % (BEAKER) (test code = 431) EOSINOPHILS RELATIVE PERCENT 2 % (BEAKER) (test code = 432) BASOPHILS RELATIVE PERCENT 0 % (BEAKER) (test code = 437) NEUTROPHILS ABSOLUTE COUNT 5.48 K/ L 1.78-5.38 H (BEAKER) (test code = 670) LYMPHOCYTES ABSOLUTE COUNT 1.81 K/ L 1.32-3.57 (BEAKER) (test code = 414) MONOCYTES ABSOLUTE COUNT (BEAKER) 1.15 K/ L 0.30-0.82 H (test code = 415) EOSINOPHILS ABSOLUTE COUNT 0.19 K/ L 0.04-0.54 (BEAKER) (test code = 416) BASOPHILS ABSOLUTE COUNT (BEAKER) 0.03 K/ L 0.01-0.08 (test code = 417) IMMATURE GRANULOCYTES-RELATIVE 0 % 0-1 PERCENT (BEAKER) (test code = 2801) RAD, CHEST, 1 VIEW, NON [id number] 09:28:00Reason for exam:->s/p R VATSShould this be [...] GarciaMDReport Verified Date/Time: 04/19/2019 09:28:51 Reading Location: [facility] C013V Neuro Reading Room BASIC METABOLIC [id number] 04:18:00 Test Item Value Reference Range Interpretation Comments SODIUM (BEAKER) 144 meq/L 136-145 (test code = 381) POTASSIUM (BEAKER) 3.7 meq/L 3.5-5.1 Specimen slightly (test code = 379) hemolyzed CHLORIDE (BEAKER) 111 meq/L 98-107 H (test code = 382) CO2 (BEAKER) (test 28 meq/L 22-29 code = 355) BLOOD UREA NITROGEN 26 mg/dL 7-21 H (BEAKER) (test code = 354) CREATININE (BEAKER) 0.73 mg/dL 0.57-1.25 Specimen slightly (test code = 358) hemolyzed GLUCOSE RANDOM 116 mg/dL 70-105 H (BEAKER) (test code = 652) CALCIUM (BEAKER) 7.7 mg/dL 8.4-10.2 L (test code = 697) EGFR (BEAKER) (test 108 mL/min/1.73 ESTIM ATED GFR IS code = 1092) sq m NOT ACCURATE CREATININE CLEARANCE IN PREDICTING GLOMERULAR FILTRATION RATE . ESTIMATED GFR I S NOT APPLICABLE FOR DIALYSIS PATIEN TS. Metal Tube Cutter ID - ELISSA [id number] 04:16:00 Test Item Value Reference Range Interpretation Comments MAGNESIUM (BEAKER) 1.8 mg/dL 1.6-2.6 Specimen slightly (test code = 627) hemolyzed Metal Tube Cutter ID - ELISSA [id number] 04:16:00 Test Item Value Reference Range Interpretation Comments PHOSPHORUS (BEAKER) 1.9 mg/dL 2.3-4.7 L Specimen slightly (test code = 604) hemolyzed Metal Tube Cutter ID - ELISSA MCBC W/PLT COUNT & AUTO [id number] 03:48:00 Test Item Value Reference Range Interpretation Comments WHITE BLOOD CELL COUNT (BEAKER) 7.9 K/ L 3.5-10.5 (test code = 775) RED BLOOD CELL COUNT (BEAKER) 3.01 M/ L 4.63-6.08 L (test code = 761) HEMOGLOBIN (BEAKER) (test code = 8.5 GM/DL 13.7-17.5 L 410) HEMATOCRIT (BEAKER) (test code = 26.6 % 40.1-51.0 L 411) MEAN CORPUSCULAR VOLUME (BEAKER) 88.4 fL 79.0-92.2 (test code = 753) MEAN CORPUSCULAR HEMOGLOBIN 28.2 pg 25.7-32.2 (BEAKER) (test code = 751) MEAN CORPUSCULAR HEMOGLOBIN CONC 32.0 GM/DL 32.3-36.5 L (BEAKER) (test code = 752) RED CELL DISTRIBUTION WIDTH 18.3 % 11.6-14.4 H (BEAKER) (test code = 412) PLATELET COUNT (BEAKER) (test 196 K/CU MM 150-450 code = 756) MEAN PLATELET VOLUME (BEAKER) 11.5 fL 9.4-12.4 (test code = 754) NUCLEATED RED BLOOD CELLS 0 /100 WBC 0-0 (BEAKER) (test code = 413) NEUTROPHILS RELATIVE PERCENT 67 % (BEAKER) (test code = 429) LYMPHOCYTES RELATIVE PERCENT 18 % (BEAKER) (test code = 430) MONOCYTES RELATIVE PERCENT 12 % (BEAKER) (test code = 431) EOSINOPHILS RELATIVE PERCENT 3 % (BEAKER) (test code = 432) BASOPHILS RELATIVE PERCENT 0 % (BEAKER) (test code = 437) NEUTROPHILS ABSOLUTE COUNT 5.32 K/ L 1.78-5.38 (BEAKER) (test code = 670) LYMPHOCYTES ABSOLUTE COUNT 1.39 K/ L 1.32-3.57 (BEAKER) (test code = 414) MONOCYTES ABSOLUTE COUNT (BEAKER) 0.97 K/ L 0.30-0.82 H (test code = 415) EOSINOPHILS ABSOLUTE COUNT 0.21 K/ L 0.04-0.54 (BEAKER) (test code = 416) BASOPHILS ABSOLUTE COUNT (BEAKER) 0.03 K/ L 0.01-0.08 (test code = 417) IMMATURE GRANULOCYTES-RELATIVE 0 % 0-1 PERCENT (BEAKER) (test code = 2801) POCT-GLUCOSE [id number] 00:35:00 Test Item Value Reference Range Interpretation Comments POC-GLUCOSE METER 104 mg/dL 70-110 : TESTED [facility] (BEAKER) (test code = [place], 1538) [address]: Metal Tube Cutter/Techni aaron ID = [id number] for SD MS, SENORA BASIC METABOLIC [id number] 19:39:00 Test Item Value Reference Range Interpretation Comments SODIUM (BEAKER) 142 meq/L 136-145 (test code = 381) POTASSIUM (BEAKER) 3.6 meq/L 3.5-5.1 (test code = 379) CHLORIDE (BEAKER) 111 meq/L 98-107 H (test code = 382) CO2 (BEAKER) (test 26 meq/L 22-29 code = 355) BLOOD UREA NITROGEN 28 mg/dL 7-21 H (BEAKER) (test code = 354) CREATININE (BEAKER) 0.74 mg/dL 0.57-1.25 (test code = 358) GLUCOSE RANDOM 112 mg/dL 70-105 H (BEAKER) (test code = 652) CALCIUM (BEAKER) 7.7 mg/dL 8.4-10.2 L (test code = 697) EGFR (BEAKER) (test 106 mL/min/1.73 ESTIM ATED GFR IS code = 1092) sq m NOT ACCURATE CREATININE CLEARANCE IN PREDICTING GLOMERULAR FILTRATION RATE . ESTIMATED GFR I S NOT APPLICABLE FOR DIALYSIS PATIEN TS. Metal Tube Cutter ID - [id number] 19:37:00 Test Item Value Reference Range Interpretation Comments PHOSPHORUS (BEAKER) (test code = 1.8 mg/dL 2.3-4.7 L 604) Metal Tube Cutter ID - [id number] 19:37:00 Test Item Value Reference Range Interpretation Comments MAGNESIUM (BEAKER) (test code = 1.8 mg/dL 1.6-2.6 627) Metal Tube Cutter ID - DBPOCT-GLUCOSE [id number] 18:39:00 Test Item Value Reference Range Interpretation Comments POC-GLUCOSE METER 115 mg/dL 70-110 H : Notified RN/MD: (BEAKER) (test code = TESTED AT [facility] 67[facility] 1538) [facility], [address]: Metal Tube Cutter/Techni aaron ID = [id number] for Renetta Guerrier CBC W/PLT COUNT & AUTO [id number] 18:15:00 Test Item Value Reference Range Interpretation Comments WHITE BLOOD CELL COUNT (BEAKER) 8.7 K/ L 3.5-10.5 (test code = 775) RED BLOOD CELL COUNT (BEAKER) 3.07 M/ L 4.63-6.08 L (test code = 761) HEMOGLOBIN (BEAKER) (test code = 8.6 GM/DL 13.7-17.5 L 410) HEMATOCRIT (BEAKER) (test code = 27.2 % 40.1-51.0 L 411) MEAN CORPUSCULAR VOLUME (BEAKER) 88.6 fL 79.0-92.2 (test code = 753) MEAN CORPUSCULAR HEMOGLOBIN 28.0 pg 25.7-32.2 (BEAKER) (test code = 751) MEAN CORPUSCULAR HEMOGLOBIN CONC 31.6 GM/DL 32.3-36.5 L (BEAKER) (test code = 752) RED CELL DISTRIBUTION WIDTH 18.0 % 11.6-14.4 H (BEAKER) (test code = 412) PLATELET COUNT (BEAKER) (test 170 K/CU MM 150-450 code = 756) MEAN PLATELET VOLUME (BEAKER) 10.9 fL 9.4-12.4 (test code = 754) NUCLEATED RED BLOOD CELLS 0 /100 WBC 0-0 (BEAKER) (test code = 413) NEUTROPHILS RELATIVE PERCENT 70 % (BEAKER) (test code = 429) LYMPHOCYTES RELATIVE PERCENT 17 % (BEAKER) (test code = 430) MONOCYTES RELATIVE PERCENT 12 % (BEAKER) (test code = 431) EOSINOPHILS RELATIVE PERCENT 2 % (BEAKER) (test code = 432) BASOPHILS RELATIVE PERCENT 0 % (BEAKER) (test code = 437) NEUTROPHILS ABSOLUTE COUNT 6.07 K/ L 1.78-5.38 H (BEAKER) (test code = 670) LYMPHOCYTES ABSOLUTE COUNT 1.43 K/ L 1.32-3.57 (BEAKER) (test code = 414) MONOCYTES ABSOLUTE COUNT (BEAKER) 1.00 K/ L 0.30-0.82 H (test code = 415) EOSINOPHILS ABSOLUTE COUNT 0.13 K/ L 0.04-0.54 (BEAKER) (test code = 416) BASOPHILS ABSOLUTE COUNT (BEAKER) 0.02 K/ L 0.01-0.08 (test code = 417) IMMATURE GRANULOCYTES-RELATIVE 1 % 0-1 PERCENT (BEAKER) (test code = 2801) SURGICALLY OBTAINED CULTURE + GRAM [id number] 16:40:00 Test Item Value Reference Range Interpretation Comments CULTURE (BEAKER) (test code No growth = 1095) GRAM STAIN RESULT (BEAKER) 1+ WBCs (test code = 1123) GRAM STAIN RESULT (BEAKER) No organisms seen (test code = 76335) SURGICALLY OBTAINED CULTURE + GRAM [id number] 16:40:00 Test Item Value Reference Range Interpretation Comments CULTURE (BEAKER) (test code No growth = 1095) GRAM STAIN RESULT (BEAKER) 1+ WBCs (test code = 1123) GRAM STAIN RESULT (BEAKER) No organisms seen (test code = 57627) SURGICALLY OBTAINED CULTURE + GRAM [id number] 16:40:00 Test Item Value Reference Range Interpretation Comments CULTURE (BEAKER) (test code No growth = 1095) GRAM STAIN RESULT (BEAKER) 1+ WBCs (test code = 1123) GRAM STAIN RESULT (BEAKER) No organisms seen (test code = 27565) SURGICALLY OBTAINED CULTURE + GRAM [id number] 16:40:00 Test Item Value Reference Range Interpretation Comments CULTURE (BEAKER) (test code No growth = 1095) GRAM STAIN RESULT (BEAKER) 1+ WBCs (test code = 1123) GRAM STAIN RESULT (BEAKER) No organisms seen (test code = 68470) SURGICALLY OBTAINED CULTURE + GRAM [id number] 16:40:00 Test Item Value Reference Range Interpretation Comments CULTURE (BEAKER) (test code No growth = 1095) GRAM STAIN RESULT (BEAKER) 1+ WBCs (test code = 1123) GRAM STAIN RESULT (BEAKER) No organisms seen (test code = 83501) POCT-GLUCOSE [id number] 11:57:00 Test Item Value Reference Range Interpretation Comments POC-GLUCOSE METER 126 mg/dL 70-110 H : Notified RN/MD: (BEAKER) (test code = TESTED AT [facility] 67[facility] 1538) [facility], [address]: Metal Tube Cutter/Techni aaron ID = [id number] for Si Renetta cain RAD, CHEST, 1 VIEW, NON [id number] 10:13:00Reason for exam:->s/p R VATSShould this be [...] by technique with sternotomy wires. Signed: Jenny Rosadoort Verified Date/Time: 04/18/2019 10:13:43 Reading Location: [facility] Radiology Reading Room POCT-GLUCOSE [id number] 06:07:00 Test Item Value Reference Range Interpretation Comments POC-GLUCOSE METER 136 mg/dL 70-110 H : TESTED A T [facility] (BEAKER) (test code = ILDA Calvert [facility], 1538) [address]: Metal Tube Cutter/Techni aaron ID = [id number] for Ed wards, John BASIC METABOLIC [id number] 03:23:00 Test Item Value Reference Range Interpretation Comments SODIUM (BEAKER) 140 meq/L 136-145 (test code = 381) POTASSIUM (BEAKER) 4.1 meq/L 3.5-5.1 (test code = 379) CHLORIDE (BEAKER) 112 meq/L 98-107 H (test code = 382) CO2 (BEAKER) (test 23 meq/L 22-29 code = 355) BLOOD UREA NITROGEN 31 mg/dL 7-21 H (BEAKER) (test code = 354) CREATININE (BEAKER) 0.92 mg/dL 0.57-1.25 (test code = 358) GLUCOSE RANDOM 136 mg/dL 70-105 H (BEAKER) (test code = 652) CALCIUM (BEAKER) 7.6 mg/dL 8.4-10.2 L (test code = 697) EGFR (BEAKER) (test 83 mL/min/1.73 ESTIMA ARLENE GFR IS code = 1092) sq m NOT ACCURATE CREATININE CLEARANCE IN PREDICTING GLOMERULAR FILTRATION RATE . ESTIMATED GFR I S NOT APPLICABLE FOR DIALYSIS PATIEN TS. Metal Tube Cutter ID - ELISSA [id number] 03:09:00 Test Item Value Reference Range Interpretation Comments PHOSPHORUS (BEAKER) (test code = 2.9 mg/dL 2.3-4.7 604) Metal Tube Cutter ID - ELISSA [id number] 03:09:00 Test Item Value Reference Range Interpretation Comments MAGNESIUM (BEAKER) (test code = 2.0 mg/dL 1.6-2.6 627) Metal Tube Cutter ID - ELISSA MBLOOD GAS, [id number] 02:53:00 Test Item Value Reference Range Interpretation Comments PH ARTERIAL (BEAKER) (test code = 7.43 7.35-7.45 383) PCO2 ARTERIAL (BEAKER) (test code 39 mmHg 35-45 = 384) PO2 ARTERIAL (BEAKER) (test code = 165 mmHg 80-90 H 385) O2 SATURATION ARTERIAL (BEAKER) 99.1 % 96.0-97.0 H (test code = 386) HCO3 ARTERIAL (BEAKER) (test code 25 mmol/L 21-29 = 388) BASE EXCESS ARTERIAL (BEAKER) 0.6 mmol/L -2.0-3.0 (test code = 387) PATIENT TEMPERATURE (BEAKER) (test 37.2 C code = 1818) FIO2 (BEAKER) (test code = 1819) 40.0 % CBC W/PLT COUNT & AUTO [id number] 02:51:00 Test Item Value Reference Range Interpretation Comments WHITE BLOOD CELL COUNT (BEAKER) 7.5 K/ L 3.5-10.5 (test code = 775) RED BLOOD CELL COUNT (BEAKER) 2.78 M/ L 4.63-6.08 L (test code = 761) HEMOGLOBIN (BEAKER) (test code = 8.0 GM/DL 13.7-17.5 L 410) HEMATOCRIT (BEAKER) (test code = 24.8 % 40.1-51.0 L 411) MEAN CORPUSCULAR VOLUME (BEAKER) 89.2 fL 79.0-92.2 (test code = 753) MEAN CORPUSCULAR HEMOGLOBIN 28.8 pg 25.7-32.2 (BEAKER) (test code = 751) MEAN CORPUSCULAR HEMOGLOBIN CONC 32.3 GM/DL 32.3-36.5 (BEAKER) (test code = 752) RED CELL DISTRIBUTION WIDTH 18.1 % 11.6-14.4 H (BEAKER) (test code = 412) PLATELET COUNT (BEAKER) (test 125 K/CU MM 150-450 L code = 756) MEAN PLATELET VOLUME (BEAKER) 11.9 fL 9.4-12.4 (test code = 754) NUCLEATED RED BLOOD CELLS 0 /100 WBC 0-0 (BEAKER) (test code = 413) NEUTROPHILS RELATIVE PERCENT 64 % (BEAKER) (test code = 429) LYMPHOCYTES RELATIVE PERCENT 21 % (BEAKER) (test code = 430) MONOCYTES RELATIVE PERCENT 11 % (BEAKER) (test code = 431) EOSINOPHILS RELATIVE PERCENT 4 % (BEAKER) (test code = 432) BASOPHILS RELATIVE PERCENT 0 % (BEAKER) (test code = 437) NEUTROPHILS ABSOLUTE COUNT 4.79 K/ L 1.78-5.38 (BEAKER) (test code = 670) LYMPHOCYTES ABSOLUTE COUNT 1.53 K/ L 1.32-3.57 (BEAKER) (test code = 414) MONOCYTES ABSOLUTE COUNT (BEAKER) 0.84 K/ L 0.30-0.82 H (test code = 415) EOSINOPHILS ABSOLUTE COUNT 0.27 K/ L 0.04-0.54 (BEAKER) (test code = 416) BASOPHILS ABSOLUTE COUNT (BEAKER) 0.02 K/ L 0.01-0.08 (test code = 417) IMMATURE GRANULOCYTES-RELATIVE 0 % 0-1 PERCENT (BEAKER) (test code = 2801) POCT-GLUCOSE [id number] 00:31:00 Test Item Value Reference Range Interpretation Comments POC-GLUCOSE METER 121 mg/dL 70-110 H : TESTED [facility] (BEAKER) (test code = ILDA [place], 1538) [address]: Metal Tube Cutter/Techni aaron ID = [id number] for ARHUNMWUNDE, OS AZE POCT-GLUCOSE [id number] 18:46:00 Test Item Value Reference Range Interpretation Comments POC-GLUCOSE METER 114 mg/dL 70-110 H : TESTED A T [facility] [address] (BEAKER) (test code = ILDA [place], 1538) [address]: Metal Tube Cutter/Techni aaron ID = [id number] for BRENDON BONILLA BASIC METABOLIC [id number] 17:17:00 Test Item Value Reference Range Interpretation Comments SODIUM (BEAKER) 138 meq/L 136-145 (test code = 381) POTASSIUM (BEAKER) 4.1 meq/L 3.5-5.1 (test code = 379) CHLORIDE (BEAKER) 111 meq/L 98-107 H (test code = 382) CO2 (BEAKER) (test 24 meq/L 22-29 code = 355) BLOOD UREA NITROGEN 33 mg/dL 7-21 H (BEAKER) (test code = 354) CREATININE (BEAKER) 1.02 mg/dL 0.57-1.25 (test code = 358) GLUCOSE RANDOM 104 mg/dL 70-105 (BEAKER) (test code = 652) CALCIUM (BEAKER) 7.7 mg/dL 8.4-10.2 L (test code = 697) EGFR (BEAKER) (test 74 mL/min/1.73 ESTIMA ARLENE GFR IS code = 1092) sq m NOT ACCURATE CREATININE CLEARANCE IN PREDICTING GLOMERULAR FILTRATION RATE . ESTIMATED GFR I S NOT APPLICABLE FOR DIALYSIS PATIEN TS. Metal Tube Cutter ID - BSSpecimen slightly [id number] 17:14:00 Test Item Value Reference Range Interpretation Comments PHOSPHORUS (BEAKER) (test code = 4.2 mg/dL 2.3-4.7 604) Metal Tube Cutter ID - [id number] 17:14:00 Test Item Value Reference Range Interpretation Comments MAGNESIUM (BEAKER) (test code = 2.1 mg/dL 1.6-2.6 627) Metal Tube Cutter ID - BSCBC W/PLT COUNT & AUTO [id number] 16:29:00 Test Item Value Reference Range Interpretation Comments WHITE BLOOD CELL COUNT (BEAKER) 7.9 K/ L 3.5-10.5 (test code = 775) RED BLOOD CELL COUNT (BEAKER) 2.96 M/ L 4.63-6.08 L (test code = 761) HEMOGLOBIN (BEAKER) (test code = 8.4 GM/DL 13.7-17.5 L 410) HEMATOCRIT (BEAKER) (test code = 26.2 % 40.1-51.0 L 411) MEAN CORPUSCULAR VOLUME (BEAKER) 88.5 fL 79.0-92.2 (test code = 753) MEAN CORPUSCULAR HEMOGLOBIN 28.4 pg 25.7-32.2 (BEAKER) (test code = 751) MEAN CORPUSCULAR HEMOGLOBIN CONC 32.1 GM/DL 32.3-36.5 L (BEAKER) (test code = 752) RED CELL DISTRIBUTION WIDTH 17.8 % 11.6-14.4 H (BEAKER) (test code = 412) PLATELET COUNT (BEAKER) (test 121 K/CU MM 150-450 L code = 756) MEAN PLATELET VOLUME (BEAKER) 11.0 fL 9.4-12.4 (test code = 754) NUCLEATED RED BLOOD CELLS 0 /100 WBC 0-0 (BEAKER) (test code = 413) NEUTROPHILS RELATIVE PERCENT 68 % (BEAKER) (test code = 429) LYMPHOCYTES RELATIVE PERCENT 18 % (BEAKER) (test code = 430) MONOCYTES RELATIVE PERCENT 10 % (BEAKER) (test code = 431) EOSINOPHILS RELATIVE PERCENT 4 % (BEAKER) (test code = 432) BASOPHILS RELATIVE PERCENT 0 % (BEAKER) (test code = 437) NEUTROPHILS ABSOLUTE COUNT 5.37 K/ L 1.78-5.38 (BEAKER) (test code = 670) LYMPHOCYTES ABSOLUTE COUNT 1.39 K/ L 1.32-3.57 (BEAKER) (test code = 414) MONOCYTES ABSOLUTE COUNT (BEAKER) 0.81 K/ L 0.30-0.82 (test code = 415) EOSINOPHILS ABSOLUTE COUNT 0.29 K/ L 0.04-0.54 (BEAKER) (test code = 416) BASOPHILS ABSOLUTE COUNT (BEAKER) 0.01 K/ L 0.01-0.08 (test code = 417) IMMATURE GRANULOCYTES-RELATIVE 0 % 0-1 PERCENT (BEAKER) (test code = 2801) BLOOD GAS, [id number] 16:23:00 Test Item Value Reference Range Interpretation Comments PH ARTERIAL (BEAKER) (test code = 7.41 7.35-7.45 383) PCO2 ARTERIAL (BEAKER) (test code 41 mmHg 35-45 = 384) PO2 ARTERIAL (BEAKER) (test code = 174 mmHg 80-90 H 385) O2 SATURATION ARTERIAL (BEAKER) 99.2 % 96.0-97.0 H (test code = 386) HCO3 ARTERIAL (BEAKER) (test code 25 mmol/L 21-29 = 388) BASE EXCESS ARTERIAL (BEAKER) 0.4 mmol/L -2.0-3.0 (test code = 387) PATIENT TEMPERATURE (BEAKER) (test 37.0 C code = 1818) FIO2 (BEAKER) (test code = 1819) 40.0 % POCT-GLUCOSE [id number] 13:26:00 Test Item Value Reference Range Interpretation Comments POC-GLUCOSE METER 94 mg/dL 70-110 : TESTED A T [facility] (BEAKER) (test code = ILDA Calvert [facility], 1538) [address]: Metal Tube Cutter/Techni aaron ID = [id number] for SIBA I, ANNESSA BRONCHIAL CULTURE + GRAM [id number] 11:54:00 Test Item Value Reference Range Interpretation Comments CULTURE (BEAKER) (test code No growth = 1095) GRAM STAIN RESULT (BEAKER) 1+ WBCs (test code = 1123) GRAM STAIN RESULT (BEAKER) No organisms seen (test code = 51791) TISSUE [id number] 11:43:00Surgical Pathology Report Case: [id number] Authorizing Provider: Fernando Andrews MD Collected: 04/14/2019 4744 Ordering Location: [facility] Received: 04/15/2019 0924 PERIOPERATIVE SERVICES Pathologist: Gay Puentes MD Specimens: [...] DIAGNOSTIC ALTERATION. Signing Pathologist Direct Phone Line: [phone] signed by Gay Puentes MD on 04/17/2019 at 11:43 [id number] X 4Empyema, right.A. Pleura. B. Lung, right [...] tissue, which is entirely submitted in D1. PA/ewPerformed.[facility], Department of Pathology, [address] [place] [address], [facility], [address] [place] [address], [facility], [facility], [address] [place] [address], OLC, CHEST, 1 VIEW, NON [id number] 10:13:00Reason for exam:->s/p R VATSShould this be [...] MDReport Verified Date/Time: 04/17/2019 10:13:50 Reading Location: [facility] Radiology Reading Room POCT- GLUCOSE [id number] 05:44:00 Test Item Value Reference Range Interpretation Comments POC-GLUCOSE METER 99 mg/dL 70-110 : TESTED A T [facility] (BEAKER) (test code = ILDA Cal[place], 1538) [address]: Metal Tube Cutter/Techni aaron ID = [id number] for CLARKE RILEY BASIC METABOLIC [id number] 04:57:00 Test Item Value Reference Range Interpretation Comments SODIUM (BEAKER) 138 meq/L 136-145 (test code = 381) POTASSIUM (BEAKER) 4.4 meq/L 3.5-5.1 (test code = 379) CHLORIDE (BEAKER) 112 meq/L 98-107 H (test code = 382) CO2 (BEAKER) (test 21 meq/L 22-29 L code = 355) BLOOD UREA NITROGEN 33 mg/dL 7-21 H (BEAKER) (test code = 354) CREATININE (BEAKER) 1.12 mg/dL 0.57-1.25 (test code = 358) GLUCOSE RANDOM 98 mg/dL 70-105 (BEAKER) (test code = 652) CALCIUM (BEAKER) 7.4 mg/dL 8.4-10.2 L (test code = 697) EGFR (BEAKER) (test 66 mL/min/1.73 ESTIMA ARLENE GFR IS code = 1092) sq m NOT ACCURATE CREATININE CLEARANCE IN PREDICTING GLOMERULAR FILTRATION RATE . ESTIMATED GFR I S NOT APPLICABLE FOR DIALYSIS PATIEN TS. Metal Tube Cutter ID - [id number] 04:36:00 Test Item Value Reference Range Interpretation Comments PHOSPHORUS (BEAKER) (test code = 3.8 mg/dL 2.3-4.7 604) Metal Tube Cutter ID - [id number] 04:36:00 Test Item Value Reference Range Interpretation Comments MAGNESIUM (BEAKER) (test code = 2.3 mg/dL 1.6-2.6 627) Metal Tube Cutter ID - [id number] 04:08:00 Test Item Value Reference Range Interpretation Comments PARTIAL THROMBOPLASTIN TIME 41.6 seconds 22.5-36.0 H (BEAKER) (test code = 760) PROTHROMBIN [id number] 04:07:00 Test Item Value Reference Range Interpretation Comments PROTIME (BEAKER) (test code = 18.0 seconds 11.9-14.2 H 759) INR (BEAKER) (test code = 370) 1.5 <=5.9 Effective 07/24/2018: PT Reference Range ChangeNew: 11.9-14.2 Previous: 11.7- 14.7RECOMMENDED COUMADIN/WARFARIN INR THERAPY RANGESSTANDARD DOSE: 2.0-3.0 Includes: PROPHYLAXIS for venous thrombosis, systemic embolization; TREATMENT for venous thrombosis and/or pulmonary embolus.HIGH RISK: Target INR is2.5-3.5 for patients wiht mechanical heart valves.BLOOD GAS, [id number] 04:02:00 Test Item Value Reference Range Interpretation Comments PH ARTERIAL (BEAKER) (test code = 7.53 7.35-7.45 H 383) PCO2 ARTERIAL (BEAKER) (test code 30 mmHg 35-45 L = 384) PO2 ARTERIAL (BEAKER) (test code = 183 mmHg 80-90 H 385) O2 SATURATION ARTERIAL (BEAKER) 99.4 % 96.0-97.0 H (test code = 386) HCO3 ARTERIAL (BEAKER) (test code 24 mmol/L 21-29 = 388) BASE EXCESS ARTERIAL (BEAKER) 1.5 mmol/L -2.0-3.0 (test code = 387) PATIENT TEMPERATURE (BEAKER) (test 37.0 C code = 1818) FIO2 (BEAKER) (test code = 1819) 40.0 % CBC W/PLT COUNT & AUTO [id number] 03:56:00 Test Item Value Reference Range Interpretation Comments WHITE BLOOD CELL COUNT (BEAKER) 8.0 K/ L 3.5-10.5 (test code = 775) RED BLOOD CELL COUNT (BEAKER) 2.56 M/ L 4.63-6.08 L (test code = 761) HEMOGLOBIN (BEAKER) (test code = 7.2 GM/DL 13.7-17.5 L 410) HEMATOCRIT (BEAKER) (test code = 22.4 % 40.1-51.0 L 411) MEAN CORPUSCULAR VOLUME (BEAKER) 87.5 fL 79.0-92.2 (test code = 753) MEAN CORPUSCULAR HEMOGLOBIN 28.1 pg 25.7-32.2 (BEAKER) (test code = 751) MEAN CORPUSCULAR HEMOGLOBIN CONC 32.1 GM/DL 32.3-36.5 L (BEAKER) (test code = 752) RED CELL DISTRIBUTION WIDTH 18.2 % 11.6-14.4 H (BEAKER) (test code = 412) PLATELET COUNT (BEAKER) (test 113 K/CU MM 150-450 L code = 756) MEAN PLATELET VOLUME (BEAKER) 11.4 fL 9.4-12.4 (test code = 754) NUCLEATED RED BLOOD CELLS 0 /100 WBC 0-0 (BEAKER) (test code = 413) NEUTROPHILS RELATIVE PERCENT 65 % (BEAKER) (test code = 429) LYMPHOCYTES RELATIVE PERCENT 20 % (BEAKER) (test code = 430) MONOCYTES RELATIVE PERCENT 11 % (BEAKER) (test code = 431) EOSINOPHILS RELATIVE PERCENT 4 % (BEAKER) (test code = 432) BASOPHILS RELATIVE PERCENT 0 % (BEAKER) (test code = 437) NEUTROPHILS ABSOLUTE COUNT 5.21 K/ L 1.78-5.38 (BEAKER) (test code = 670) LYMPHOCYTES ABSOLUTE COUNT 1.59 K/ L 1.32-3.57 (BEAKER) (test code = 414) MONOCYTES ABSOLUTE COUNT (BEAKER) 0.91 K/ L 0.30-0.82 H (test code = 415) EOSINOPHILS ABSOLUTE COUNT 0.28 K/ L 0.04-0.54 (BEAKER) (test code = 416) BASOPHILS ABSOLUTE COUNT (BEAKER) 0.02 K/ L 0.01-0.08 (test code = 417) IMMATURE GRANULOCYTES-RELATIVE 0 % 0-1 PERCENT (BEAKER) (test code = 2801) HEMOGLOBIN AND [id number] 00:46:00 Test Item Value Reference Range Interpretation Comments HEMOGLOBIN (BEAKER) (test code = 7.7 GM/DL 13.7-17.5 L 410) HEMATOCRIT (BEAKER) (test code = 23.6 % 40.1-51.0 L 411) Metal Tube Cutter ID - [id number] 00:22:00 Test Item Value Reference Range Interpretation Comments POC-GLUCOSE METER 98 mg/dL 70-110 : TESTED A T [facility] 6720 (BEAKER) (test code = [facility], 1538) [address]: Metal Tube Cutter/Techni aaron ID = [id number] for SANDRA FERNANDEZ POCT-GLUCOSE [id number] 19:03:00 Test Item Value Reference Range Interpretation Comments POC-GLUCOSE METER 93 mg/dL 70-110 : TESTED A T [facility] 6720 (BEAKER) (test code = [facility] Fer[facility]ics [facility], 1538) [address]: Metal Tube Cutter/Techni aaron ID = [id number] for DRU MONTE BASIC METABOLIC [id number] 17:08:00 Test Item Value Reference Range Interpretation Comments SODIUM (BEAKER) 139 meq/L 136-145 (test code = 381) POTASSIUM (BEAKER) 4.9 meq/L 3.5-5.1 Specimen slightly (test code = 379) hemolyzed CHLORIDE (BEAKER) 113 meq/L 98-107 H (test code = 382) CO2 (BEAKER) (test 23 meq/L 22-29 code = 355) BLOOD UREA NITROGEN 31 mg/dL 7-21 H (BEAKER) (test code = 354) CREATININE (BEAKER) 1.21 mg/dL 0.57-1.25 Specimen slightly (test code = 358) hemolyzed GLUCOSE RANDOM 96 mg/dL 70-105 (BEAKER) (test code = 652) CALCIUM (BEAKER) 7.7 mg/dL 8.4-10.2 L (test code = 697) EGFR (BEAKER) (test 60 mL/min/1.73 ESTIMA ARLENE GFR IS code = 1092) sq m NOT ACCURATE CREATININE CLEARANCE IN PREDICTING GLOMERULAR FILTRATION RATE . ESTIMATED GFR I S NOT APPLICABLE FOR DIALYSIS PATIEN TS. Metal Tube Cutter ID - [id number] 17:06:00 Test Item Value Reference Range Interpretation Comments PHOSPHORUS (BEAKER) 4.5 mg/dL 2.3-4.7 Specimen slightly (test code = 604) hemolyzed Metal Tube Cutter ID - BSCBC W/PLT COUNT & AUTO [id number] 16:39:00 Test Item Value Reference Range Interpretation Comments WHITE BLOOD CELL COUNT (BEAKER) 9.5 K/ L 3.5-10.5 (test code = 775) RED BLOOD CELL COUNT (BEAKER) 2.78 M/ L 4.63-6.08 L (test code = 761) HEMOGLOBIN (BEAKER) (test code = 7.9 GM/DL 13.7-17.5 L 410) HEMATOCRIT (BEAKER) (test code = 23.8 % 40.1-51.0 L 411) MEAN CORPUSCULAR VOLUME (BEAKER) 85.6 fL 79.0-92.2 (test code = 753) MEAN CORPUSCULAR HEMOGLOBIN 28.4 pg 25.7-32.2 (BEAKER) (test code = 751) MEAN CORPUSCULAR HEMOGLOBIN CONC 33.2 GM/DL 32.3-36.5 (BEAKER) (test code = 752) RED CELL DISTRIBUTION WIDTH 17.8 % 11.6-14.4 H (BEAKER) (test code = 412) PLATELET COUNT (BEAKER) (test 133 K/CU MM 150-450 L code = 756) MEAN PLATELET VOLUME (BEAKER) 11.9 fL 9.4-12.4 (test code = 754) NUCLEATED RED BLOOD CELLS 0 /100 WBC 0-0 (BEAKER) (test code = 413) NEUTROPHILS RELATIVE PERCENT 66 % (BEAKER) (test code = 429) LYMPHOCYTES RELATIVE PERCENT 18 % (BEAKER) (test code = 430) MONOCYTES RELATIVE PERCENT 13 % (BEAKER) (test code = 431) EOSINOPHILS RELATIVE PERCENT 3 % (BEAKER) (test code = 432) BASOPHILS RELATIVE PERCENT 0 % (BEAKER) (test code = 437) NEUTROPHILS ABSOLUTE COUNT 6.31 K/ L 1.78-5.38 H (BEAKER) (test code = 670) LYMPHOCYTES ABSOLUTE COUNT 1.66 K/ L 1.32-3.57 (BEAKER) (test code = 414) MONOCYTES ABSOLUTE COUNT (BEAKER) 1.20 K/ L 0.30-0.82 H (test code = 415) EOSINOPHILS ABSOLUTE COUNT 0.26 K/ L 0.04-0.54 (BEAKER) (test code = 416) BASOPHILS ABSOLUTE COUNT (BEAKER) 0.03 K/ L 0.01-0.08 (test code = 417) IMMATURE GRANULOCYTES-RELATIVE 1 % 0-1 PERCENT (BEAKER) (test code = 2801) BLOOD GAS, [id number] 16:16:00 Test Item Value Reference Range Interpretation Comments PH ARTERIAL (BEAKER) (test code = 7.44 7.35-7.45 383) PCO2 ARTERIAL (BEAKER) (test code 35 mmHg 35-45 = 384) PO2 ARTERIAL (BEAKER) (test code 182 mmHg 80-90 H = 385) O2 SATURATION ARTERIAL (BEAKER) 99.3 % 96.0-97.0 H (test code = 386) HCO3 ARTERIAL (BEAKER) (test code 24 mmol/L 21-29 = 388) BASE EXCESS ARTERIAL (BEAKER) -0.3 mmol/L -2.0-3.0 (test code = 387) PATIENT TEMPERATURE (BEAKER) 37.0 C (test code = 1818) FIO2 (BEAKER) (test code = 1819) 40.0 % POCT-GLUCOSE [id number] 13:36:00 Test Item Value Reference Range Interpretation Comments POC-GLUCOSE METER 93 mg/dL 70-110 : TESTED A T [facility] (BEAKER) (test code = ILDA [place], 1538) [id number]: Metal Tube Cutter/Techni aaron ID = [id number] for BLOU NT, MYLES HEMOGLOBIN AND [id number] 09:42:00 Test Item Value Reference Range Interpretation Comments HEMOGLOBIN (BEAKER) (test code = 8.0 GM/DL 13.7-17.5 L 410) HEMATOCRIT (BEAKER) (test code = 24.1 % 40.1-51.0 L 411) Metal Tube Cutter ID - [id number], CHEST, 1 VIEW, NON [id number] 06:37:00Reason for exam:->s/p R VATSShould this be [...] 2019-04-16 04:45:00 Test Item Value Reference Range Interpretation Comments SODIUM (BEAKER) 139 meq/L 136-145 (test code = 381) POTASSIUM (BEAKER) 5.0 meq/L 3.5-5.1 (test code = 379) CHLORIDE (BEAKER) 112 meq/L 98-107 H (test code = 382) CO2 (BEAKER) (test 21 meq/L 22-29 L code = 355) BLOOD UREA NITROGEN 25 mg/dL 7-21 H (BEAKER) (test code = 354) CREATININE (BEAKER) 1.19 mg/dL 0.57-1.25 (test code = 358) GLUCOSE RANDOM 119 mg/dL 70-105 H (BEAKER) (test code = 652) CALCIUM (BEAKER) 7.5 mg/dL 8.4-10.2 L (test code = 697) EGFR (BEAKER) (test 62 mL/min/1.73 ESTIMA ARLENE GFR IS code = 1092) sq m NOT ACCURATE CREATININE CLEARANCE IN PREDICTING GLOMERULAR FILTRATION RATE . ESTIMATED GFR I S NOT APPLICABLE FOR DIALYSIS PATIEN TS. Metal Tube Cutter ID - DBSpecimen slightly [id number] 04:26:00 Test Item Value Reference Range Interpretation Comments PHOSPHORUS (BEAKER) (test code = 5.1 mg/dL 2.3-4.7 H 604) Metal Tube Cutter ID - [id number] 04:26:00 Test Item Value Reference Range Interpretation Comments MAGNESIUM (BEAKER) (test code = 2.2 mg/dL 1.6-2.6 627) Metal Tube Cutter ID - [id number] 04:09:00 Test Item Value Reference Range Interpretation Comments PARTIAL THROMBOPLASTIN TIME 35.4 seconds 22.5-36.0 (BEAKER) (test code = 760) PROTHROMBIN TIME/[id number] 04:08:00 Test Item Value Reference Range Interpretation Comments PROTIME (BEAKER) (test code = 17.5 seconds 11.9-14.2 H 759) INR (BEAKER) (test code = 370) 1.5 <=5.9 Effective 07/24/2018: PT Reference Range ChangeNew: 11.9-14.2 Previous: 11.7- 14.7RECOMMENDED COUMADIN/WARFARIN INR THERAPY RANGESSTANDARD DOSE: 2.0-3.0 Includes: PROPHYLAXIS for venous thrombosis, systemic embolization; TREATMENT for venous thrombosis and/or pulmonary embolus.HIGH RISK: Target INR is2.5-3.5 for patients wiht mechanical heart valves.CBC W/PLT COUNT & AUTO [id number] 03:57:00 Test Item Value Reference Range Interpretation Comments WHITE BLOOD CELL COUNT (BEAKER) 9.4 K/ L 3.5-10.5 (test code = 775) RED BLOOD CELL COUNT (BEAKER) 2.94 M/ L 4.63-6.08 L (test code = 761) HEMOGLOBIN (BEAKER) (test code = 8.2 GM/DL 13.7-17.5 L 410) HEMATOCRIT (BEAKER) (test code = 24.9 % 40.1-51.0 L 411) MEAN CORPUSCULAR VOLUME (BEAKER) 84.7 fL 79.0-92.2 (test code = 753) MEAN CORPUSCULAR HEMOGLOBIN 27.9 pg 25.7-32.2 (BEAKER) (test code = 751) MEAN CORPUSCULAR HEMOGLOBIN CONC 32.9 GM/DL 32.3-36.5 (BEAKER) (test code = 752) RED CELL DISTRIBUTION WIDTH 17.6 % 11.6-14.4 H (BEAKER) (test code = 412) PLATELET COUNT (BEAKER) (test 125 K/CU MM 150-450 L code = 756) MEAN PLATELET VOLUME (BEAKER) 11.6 fL 9.4-12.4 (test code = 754) NUCLEATED RED BLOOD CELLS 0 /100 WBC 0-0 (BEAKER) (test code = 413) NEUTROPHILS RELATIVE PERCENT 63 % (BEAKER) (test code = 429) LYMPHOCYTES RELATIVE PERCENT 20 % (BEAKER) (test code = 430) MONOCYTES RELATIVE PERCENT 15 % (BEAKER) (test code = 431) EOSINOPHILS RELATIVE PERCENT 2 % (BEAKER) (test code = 432) BASOPHILS RELATIVE PERCENT 0 % (BEAKER) (test code = 437) NEUTROPHILS ABSOLUTE COUNT 5.94 K/ L 1.78-5.38 H (BEAKER) (test code = 670) LYMPHOCYTES ABSOLUTE COUNT 1.83 K/ L 1.32-3.57 (BEAKER) (test code = 414) MONOCYTES ABSOLUTE COUNT (BEAKER) 1.38 K/ L 0.30-0.82 H (test code = 415) EOSINOPHILS ABSOLUTE COUNT 0.17 K/ L 0.04-0.54 (BEAKER) (test code = 416) BASOPHILS ABSOLUTE COUNT (BEAKER) 0.03 K/ L 0.01-0.08 (test code = 417) IMMATURE GRANULOCYTES-RELATIVE 1 % 0-1 PERCENT (BEAKER) (test code = 2801) CALCIUM, [id number] 03:44:00 Test Item Value Reference Range Interpretation Comments CALCIUM IONIZED (BEAKER) (test 1.09 mmol/L 1.12-1.27 L code = 698) PH, BLOOD (BEAKER) (test code = 7.44 1810) BLOOD GAS, [id number] 03:44:00 Test Item Value Reference Range Interpretation Comments PH ARTERIAL (BEAKER) (test code = 7.44 7.35-7.45 383) PCO2 ARTERIAL (BEAKER) (test code 35 mmHg 35-45 = 384) PO2 ARTERIAL (BEAKER) (test code 159 mmHg 80-90 H = 385) O2 SATURATION ARTERIAL (BEAKER) 99.1 % 96.0-97.0 H (test code = 386) HCO3 ARTERIAL (BEAKER) (test code 23 mmol/L 21-29 = 388) BASE EXCESS ARTERIAL (BEAKER) -1.1 mmol/L -2.0-3.0 (test code = 387) PATIENT TEMPERATURE (BEAKER) 37.0 C (test code = 1818) FIO2 (BEAKER) (test code = 1819) 40.0 % POCT-GLUCOSE [id number] 23:26:00 Test Item Value Reference Range Interpretation Comments POC-GLUCOSE METER 117 mg/dL 70-110 H : TESTED A T [facility] (BEAKER) (test code = ILDA [place], 1538) [id number]: Metal Tube Cutter/Techni aaron ID = [id number] for NEEL DAVALOS MS CBC W/PLT COUNT & AUTO [id number] 23:13:00 Test Item Value Reference Range Interpretation Comments WHITE BLOOD CELL COUNT (BEAKER) 8.6 K/ L 3.5-10.5 (test code = 775) RED BLOOD CELL COUNT (BEAKER) 2.40 M/ L 4.63-6.08 L (test code = 761) HEMOGLOBIN (BEAKER) (test code = 6.7 GM/DL 13.7-17.5 L 410) HEMATOCRIT (BEAKER) (test code = 20.6 % 40.1-51.0 L 411) MEAN CORPUSCULAR VOLUME (BEAKER) 85.8 fL 79.0-92.2 (test code = 753) MEAN CORPUSCULAR HEMOGLOBIN 27.9 pg 25.7-32.2 (BEAKER) (test code = 751) MEAN CORPUSCULAR HEMOGLOBIN CONC 32.5 GM/DL 32.3-36.5 (BEAKER) (test code = 752) RED CELL DISTRIBUTION WIDTH 18.2 % 11.6-14.4 H (BEAKER) (test code = 412) PLATELET COUNT (BEAKER) (test 128 K/CU MM 150-450 L code = 756) MEAN PLATELET VOLUME (BEAKER) 12.0 fL 9.4-12.4 (test code = 754) NUCLEATED RED BLOOD CELLS 0 /100 WBC 0-0 (BEAKER) (test code = 413) NEUTROPHILS RELATIVE PERCENT 65 % (BEAKER) (test code = 429) LYMPHOCYTES RELATIVE PERCENT 19 % (BEAKER) (test code = 430) MONOCYTES RELATIVE PERCENT 14 % (BEAKER) (test code = 431) EOSINOPHILS RELATIVE PERCENT 2 % (BEAKER) (test code = 432) BASOPHILS RELATIVE PERCENT 0 % (BEAKER) (test code = 437) NEUTROPHILS ABSOLUTE COUNT 5.56 K/ L 1.78-5.38 H (BEAKER) (test code = 670) LYMPHOCYTES ABSOLUTE COUNT 1.66 K/ L 1.32-3.57 (BEAKER) (test code = 414) MONOCYTES ABSOLUTE COUNT (BEAKER) 1.19 K/ L 0.30-0.82 H (test code = 415) EOSINOPHILS ABSOLUTE COUNT 0.15 K/ L 0.04-0.54 (BEAKER) (test code = 416) BASOPHILS ABSOLUTE COUNT (BEAKER) 0.03 K/ L 0.01-0.08 (test code = 417) IMMATURE GRANULOCYTES-RELATIVE 1 % 0-1 PERCENT (BEAKER) (test code = 2801) BASIC METABOLIC [id number] 16:33:00 Test Item Value Reference Range Interpretation Comments SODIUM (BEAKER) 139 meq/L 136-145 (test code = 381) POTASSIUM (BEAKER) 4.6 meq/L 3.5-5.1 (test code = 379) CHLORIDE (BEAKER) 112 meq/L 98-107 H (test code = 382) CO2 (BEAKER) (test 21 meq/L 22-29 L code = 355) BLOOD UREA NITROGEN 22 mg/dL 7-21 H (BEAKER) (test code = 354) CREATININE (BEAKER) 1.12 mg/dL 0.57-1.25 (test code = 358) GLUCOSE RANDOM 133 mg/dL 70-105 H (BEAKER) (test code = 652) CALCIUM (BEAKER) 7.6 mg/dL 8.4-10.2 L (test code = 697) EGFR (BEAKER) (test 66 mL/min/1.73 ESTIMA ARLENE GFR IS code = 1092) sq m NOT ACCURATE CREATININE CLEARANCE IN PREDICTING GLOMERULAR FILTRATION RATE . ESTIMATED GFR I S NOT APPLICABLE FOR DIALYSIS PATIEN TS. Metal Tube Cutter ID - JOSE [id number] 16:29:00 Test Item Value Reference Range Interpretation Comments PHOSPHORUS (BEAKER) (test code = 5.0 mg/dL 2.3-4.7 H 604) Metal Tube Cutter ID - JOSE EBLOOD GAS, [id number] 16:18:00 Test Item Value Reference Range Interpretation Comments PH ARTERIAL (BEAKER) (test code = 7.38 7.35-7.45 383) PCO2 ARTERIAL (BEAKER) (test code 38 mmHg 35-45 = 384) PO2 ARTERIAL (BEAKER) (test code 192 mmHg 80-90 H = 385) O2 SATURATION ARTERIAL (BEAKER) 99.3 % 96.0-97.0 H (test code = 386) HCO3 ARTERIAL (BEAKER) (test code 22 mmol/L 21-29 = 388) BASE EXCESS ARTERIAL (BEAKER) -2.9 mmol/L -2.0-3.0 L (test code = 387) PATIENT TEMPERATURE (BEAKER) 37.0 C (test code = 1818) FIO2 (BEAKER) (test code = 1819) 45.0 % CBC W/PLT COUNT & AUTO [id number] 16:17:00 Test Item Value Reference Range Interpretation Comments WHITE BLOOD CELL COUNT (BEAKER) 7.6 K/ L 3.5-10.5 (test code = 775) RED BLOOD CELL COUNT (BEAKER) 2.39 M/ L 4.63-6.08 L (test code = 761) HEMOGLOBIN (BEAKER) (test code = 6.7 GM/DL 13.7-17.5 L 410) HEMATOCRIT (BEAKER) (test code = 20.1 % 40.1-51.0 L 411) MEAN CORPUSCULAR VOLUME (BEAKER) 84.1 fL 79.0-92.2 (test code = 753) MEAN CORPUSCULAR HEMOGLOBIN 28.0 pg 25.7-32.2 (BEAKER) (test code = 751) MEAN CORPUSCULAR HEMOGLOBIN CONC 33.3 GM/DL 32.3-36.5 (BEAKER) (test code = 752) RED CELL DISTRIBUTION WIDTH 18.4 % 11.6-14.4 H (BEAKER) (test code = 412) PLATELET COUNT (BEAKER) (test 121 K/CU MM 150-450 L code = 756) MEAN PLATELET VOLUME (BEAKER) 11.9 fL 9.4-12.4 (test code = 754) NUCLEATED RED BLOOD CELLS 0 /100 WBC 0-0 (BEAKER) (test code = 413) NEUTROPHILS RELATIVE PERCENT 67 % (BEAKER) (test code = 429) LYMPHOCYTES RELATIVE PERCENT 18 % (BEAKER) (test code = 430) MONOCYTES RELATIVE PERCENT 13 % (BEAKER) (test code = 431) EOSINOPHILS RELATIVE PERCENT 1 % (BEAKER) (test code = 432) BASOPHILS RELATIVE PERCENT 1 % (BEAKER) (test code = 437) NEUTROPHILS ABSOLUTE COUNT 5.07 K/ L 1.78-5.38 (BEAKER) (test code = 670) LYMPHOCYTES ABSOLUTE COUNT 1.36 K/ L 1.32-3.57 (BEAKER) (test code = 414) MONOCYTES ABSOLUTE COUNT (BEAKER) 0.97 K/ L 0.30-0.82 H (test code = 415) EOSINOPHILS ABSOLUTE COUNT 0.08 K/ L 0.04-0.54 (BEAKER) (test code = 416) BASOPHILS ABSOLUTE COUNT (BEAKER) 0.04 K/ L 0.01-0.08 (test code = 417) IMMATURE GRANULOCYTES-RELATIVE 1 % 0-1 PERCENT (BEAKER) (test code = 2801) RAD, CHEST, 1 VIEW, NON [id number] 14:28:00Reason for exam:- >hemothoraxShould this be performed [...] Cruz Verified Date/Time: 04/15/2019 14:28:00 Reading Location: [facility] Radiology Reading Room SPIN/CONCENTRATION CHARGE 2019-04-15 14:00:00 Test Item Value Reference Range Interpretation Comments CONCENTRATION CHARGED (BEAKER) (test Done code = 2657) THROMBOELASTOGRAPH (TEG)2019-04-15 13:00:00 Test Item Value Reference Range Interpretation Comments TEG ACTIVATED CLOTTING TIME 5.0 minutes 4.0-7.0 (BEAKER) (test code = 1407) TEG FIBRINOGEN ACTIVITY (BEAKER) 75.9 degrees 61.0-73.0 H (test code = 1408) TEG PLT. AGGREGATION (BEAKER) 69.6 MM 55.0-65.0 H (test code = 1409) TEG FIBRINOLYSIS (BEAKER) (test 0.1 % 0.0-5.0 code = 1410) TGH ACTIVATED CLOTTING TIME 5.1 minutes 4.0-7.0 (BEAKER) (test code = 1411) TGH FIBRINOGEN ACTIVITY (BEAKER) 76.0 degrees 61.0-73.0 H (test code = 1412) TGH PLT. AGGREGATION (BEAKER) 65.7 MM 55.0-65.0 H (test code = 1413) TGH FIBRINOLYSIS (BEAKER) (test 4.1 % 0.0-5.0 code = 1414) [id number] 11:47:00Medical Cytology Report Case: [id number] Authorizing Provider: Fernando Andrews MD Collected: 04/14/2019 1548 Ordering Location: [facility] Received: 04/15/2019 0913 PERIOPERATIVE SERVICES Pathologist: Sean Piedra MD Specimen: Pleural, Right, Multi loculated pleural effusions RIGHT PLEURAL FLUID (CYTOSPINS): - NEGATIVE FOR MALIGNANCY PREDOMINANTLY BLOOD Signing Pathologist Direct Phone Line: [phone] signed by Sean Piedra MD on 04/15/2019 at 11:47 [id number] multi loculated pleural effusions, pneumonia, acute respiratory failureRIGHT PLEURAL [id number] mls bloody; 4 cytospinsCollected: [id number]: [id number] [facility],Department of [facility]ology, [address] [place] [address], [facility], Department of Pathology, [address] [place] [address], [facility]Mar[facility], Department of Pathology, [address] [place] [address], GSBZ-GLUCOSE [id number] 11:33:00 Test Item Value Reference Range Interpretation Comments POC-GLUCOSE METER 113 mg/dL 70-110 H : TESTED A T [facility] (BEAKER) (test code = ILDA Calvert [facility], 1538) [address]: Metal Tube Cutter/Techni aaron ID = [id number] for JIGNA ALEJANDRE CBC W/PLT COUNT & AUTO [id number] 09:14:00 Test Item Value Reference Range Interpretation Comments WHITE BLOOD CELL COUNT (BEAKER) 6.3 K/ L 3.5-10.5 (test code = 775) RED BLOOD CELL COUNT (BEAKER) 2.19 M/ L 4.63-6.08 L (test code = 761) HEMOGLOBIN (BEAKER) (test code = 6.0 GM/DL 13.7-17.5 LL 410) HEMATOCRIT (BEAKER) (test code = 18.5 % 40.1-51.0 L 411) MEAN CORPUSCULAR VOLUME (BEAKER) 84.5 fL 79.0-92.2 (test code = 753) MEAN CORPUSCULAR HEMOGLOBIN 27.4 pg 25.7-32.2 (BEAKER) (test code = 751) MEAN CORPUSCULAR HEMOGLOBIN CONC 32.4 GM/DL 32.3-36.5 (BEAKER) (test code = 752) RED CELL DISTRIBUTION WIDTH 19.7 % 11.6-14.4 H (BEAKER) (test code = 412) PLATELET COUNT (BEAKER) (test 109 K/CU MM 150-450 L code = 756) MEAN PLATELET VOLUME (BEAKER) 11.5 fL 9.4-12.4 (test code = 754) NUCLEATED RED BLOOD CELLS 0 /100 WBC 0-0 (BEAKER) (test code = 413) NEUTROPHILS RELATIVE PERCENT 65 % (BEAKER) (test code = 429) LYMPHOCYTES RELATIVE PERCENT 23 % (BEAKER) (test code = 430) MONOCYTES RELATIVE PERCENT 10 % (BEAKER) (test code = 431) EOSINOPHILS RELATIVE PERCENT 1 % (BEAKER) (test code = 432) BASOPHILS RELATIVE PERCENT 0 % (BEAKER) (test code = 437) NEUTROPHILS ABSOLUTE COUNT 4.10 K/ L 1.78-5.38 (BEAKER) (test code = 670) LYMPHOCYTES ABSOLUTE COUNT 1.48 K/ L 1.32-3.57 (BEAKER) (test code = 414) MONOCYTES ABSOLUTE COUNT (BEAKER) 0.63 K/ L 0.30-0.82 (test code = 415) EOSINOPHILS ABSOLUTE COUNT 0.07 K/ L 0.04-0.54 (BEAKER) (test code = 416) BASOPHILS ABSOLUTE COUNT (BEAKER) 0.02 K/ L 0.01-0.08 (test code = 417) IMMATURE GRANULOCYTES-RELATIVE 0 % 0-1 PERCENT (BEAKER) (test code = 2801) CALCIUM, [id number] 06:51:00 Test Item Value Reference Range Interpretation Comments CALCIUM IONIZED (BEAKER) (test 1.11 mmol/L 1.12-1.27 L code = 698) PH, BLOOD (BEAKER) (test code = 7.47 1810) RAD, CHEST, 1 VIEW, NON [id number] 05:32:00Reason for exam:->s/p R VATSShould this be performed at the bedside?->YesFINAL REPORT CLINICAL INDICATION: Postop Comparison: 04/14/20192 hours The cardiomediastinal contours are stable. Right-sided parenchymal and pleural opacities are similar toprevious. A small right pneumothorax is noted at the lateral mid to upper chest. Support lines are stable. Signed: Reji Tyler MDReport Verified Date/Time: 04/15/2019 05:32:15 BLOOD GAS, [id number] 05:01:00 Test Item Value Reference Range Interpretation Comments PH ARTERIAL (BEAKER) (test code = 7.47 7.35-7.45 H 383) PCO2 ARTERIAL (BEAKER) (test code 35 mmHg 35-45 = 384) PO2 ARTERIAL (BEAKER) (test code = 200 mmHg 80-90 H 385) O2 SATURATION ARTERIAL (BEAKER) 99.4 % 96.0-97.0 H (test code = 386) HCO3 ARTERIAL (BEAKER) (test code 25 mmol/L 21-29 = 388) BASE EXCESS ARTERIAL (BEAKER) 0.9 mmol/L -2.0-3.0 (test code = 387) PATIENT TEMPERATURE (BEAKER) (test 37.0 C code = 1818) FIO2 (BEAKER) (test code = 1819) 100.0 % BASIC METABOLIC [id number] 04:56:00 Test Item Value Reference Range Interpretation Comments SODIUM (BEAKER) 139 meq/L 136-145 (test code = 381) POTASSIUM (BEAKER) 4.7 meq/L 3.5-5.1 (test code = 379) CHLORIDE (BEAKER) 112 meq/L 98-107 H (test code = 382) CO2 (BEAKER) (test 24 meq/L 22-29 code = 355) BLOOD UREA NITROGEN 19 mg/dL 7-21 (BEAKER) (test code = 354) CREATININE (BEAKER) 0.97 mg/dL 0.57-1.25 (test code = 358) GLUCOSE RANDOM 115 mg/dL 70-105 H (BEAKER) (test code = 652) CALCIUM (BEAKER) 7.7 mg/dL 8.4-10.2 L (test code = 697) EGFR (BEAKER) (test 78 mL/min/1.73 ESTIMA ARLENE GFR IS code = 1092) sq m NOT ACCURATE CREATININE CLEARANCE IN PREDICTING GLOMERULAR FILTRATION RATE . ESTIMATED GFR I S NOT APPLICABLE FOR DIALYSIS PATIEN TS. Metal Tube Cutter ID - ELISSA MLACTIC ACID, [id number] 04:56:00 Test Item Value Reference Range Interpretation Comments LACTATE BLOOD ARTERIAL (2) 1.2 mmol/L 0.5-2.2 (BEAKER) (test code = 2874) Metal Tube Cutter ID - ELISSA [id number] 04:53:00 Test Item Value Reference Range Interpretation Comments PHOSPHORUS (BEAKER) (test code = 4.3 mg/dL 2.3-4.7 604) Metal Tube Cutter ID - ELISSA [id number] 04:53:00 Test Item Value Reference Range Interpretation Comments MAGNESIUM (BEAKER) (test code = 2.0 mg/dL 1.6-2.6 627) Metal Tube Cutter ID - ELISSA MCBC W/PLT COUNT & AUTO [id number] 04:41:00 Test Item Value Reference Range Interpretation Comments WHITE BLOOD CELL COUNT (BEAKER) 7.8 K/ L 3.5-10.5 (test code = 775) RED BLOOD CELL COUNT (BEAKER) 1.97 M/ L 4.63-6.08 L (test code = 761) HEMOGLOBIN (BEAKER) (test code = 5.2 GM/DL 13.7-17.5 LL 410) HEMATOCRIT (BEAKER) (test code = 16.5 % 40.1-51.0 L 411) MEAN CORPUSCULAR VOLUME (BEAKER) 83.8 fL 79.0-92.2 (test code = 753) MEAN CORPUSCULAR HEMOGLOBIN 26.4 pg 25.7-32.2 (BEAKER) (test code = 751) MEAN CORPUSCULAR HEMOGLOBIN CONC 31.5 GM/DL 32.3-36.5 L (BEAKER) (test code = 752) RED CELL DISTRIBUTION WIDTH 20.7 % 11.6-14.4 H (BEAKER) (test code = 412) PLATELET COUNT (BEAKER) (test 125 K/CU MM 150-450 L code = 756) MEAN PLATELET VOLUME (BEAKER) 12.1 fL 9.4-12.4 (test code = 754) NUCLEATED RED BLOOD CELLS 0 /100 WBC 0-0 (BEAKER) (test code = 413) NEUTROPHILS RELATIVE PERCENT 69 % (BEAKER) (test code = 429) LYMPHOCYTES RELATIVE PERCENT 21 % (BEAKER) (test code = 430) MONOCYTES RELATIVE PERCENT 9 % (BEAKER) (test code = 431) EOSINOPHILS RELATIVE PERCENT 1 % (BEAKER) (test code = 432) BASOPHILS RELATIVE PERCENT 0 % (BEAKER) (test code = 437) NEUTROPHILS ABSOLUTE COUNT 5.36 K/ L 1.78-5.38 (BEAKER) (test code = 670) LYMPHOCYTES ABSOLUTE COUNT 1.66 K/ L 1.32-3.57 (BEAKER) (test code = 414) MONOCYTES ABSOLUTE COUNT (BEAKER) 0.67 K/ L 0.30-0.82 (test code = 415) EOSINOPHILS ABSOLUTE COUNT 0.06 K/ L 0.04-0.54 (BEAKER) (test code = 416) BASOPHILS ABSOLUTE COUNT (BEAKER) 0.01 K/ L 0.01-0.08 (test code = 417) IMMATURE GRANULOCYTES-RELATIVE 0 % 0-1 PERCENT (BEAKER) (test code = 2801) [id number] 02:37:00 Test Item Value Reference Range Interpretation Comments FIBRINOGEN LEVEL (BEAKER) (test 177 mg/dl 225-434 L code = 658) [id number] 02:37:00 Test Item Value Reference Range Interpretation Comments PROTIME (BEAKER) (test code = 19.8 seconds 11.9-14.2 H 759) INR (BEAKER) (test code = 370) 1.7 <=5.9 PARTIAL THROMBOPLASTIN TIME 41.1 seconds 22.5-36.0 H (BEAKER) (test code = 760) Effective 07/24/2018: PT Reference Range ChangeNew: 11.9-14.2 Previous: 11.7- 14.7RECOMMENDED COUMADIN/WARFARIN INR THERAPY RANGESSTANDARD DOSE: 2.0-3.0 Includes: PROPHYLAXIS for venous thrombosis, systemic embolization; TREATMENT for venous thrombosis and/or pulmonary embolus.HIGH RISK: Target INR is2.5-3.5 for patients wiht mechanical heart valves.[id number] 02:37:00 Test Item Value Reference Range Interpretation Comments PARTIAL THROMBOPLASTIN TIME 41.1 seconds 22.5-36.0 H (BEAKER) (test code = 760) PROTHROMBIN [id number] 02:36:00 Test Item Value Reference Range Interpretation Comments PROTIME (BEAKER) (test code = 19.8 seconds 11.9-14.2 H 759) INR (BEAKER) (test code = 370) 1.7 <=5.9 Effective 07/24/2018: PT Reference Range ChangeNew: 11.9-14.2 Previous: 11.7- 14.7RECOMMENDED COUMADIN/WARFARIN INR THERAPY RANGESSTANDARD DOSE: 2.0-3.0 Includes: PROPHYLAXIS for venous thrombosis, systemic embolization; TREATMENT for venous thrombosis and/or pulmonary embolus.HIGH RISK: Target INR is2.5-3.5 for patients wiht mechanical heart valves.CBC W/PLT COUNT & AUTO [id number] 01:17:00 Test Item Value Reference Range Interpretation Comments WHITE BLOOD CELL COUNT 10.9 K/ L 3.5-10.5 H (BEAKER) (test code = 775) RED BLOOD CELL COUNT 1.74 M/ L 4.63-6.08 L (BEAKER) (test code = 761) HEMOGLOBIN (BEAKER) 4.4 GM/DL 13.7-17.5 LL [facility] (test code = 410) specimen p er [id number]. HEMATOCRIT (BEAKER) 14.6 % 40.1-51.0 L (test code = 411) MEAN CORPUSCULAR VOLUME 83.9 fL 79.0-92.2 (BEAKER) (test code = 753) MEAN CORPUSCULAR 25.3 pg 25.7-32.2 L HEMOGLOBIN (BEAKER) (test code = 751) MEAN CORPUSCULAR 30.1 GM/DL 32.3-36.5 L HEMOGLOBIN CONC (BEAKER) (test code = 752) RED CELL DISTRIBUTION 21.8 % 11.6-14.4 H WIDTH (BEAKER) (test code = 412) PLATELET COUNT (BEAKER) 130 K/CU MM 150-450 L (test code = 756) MEAN PLATELET VOLUME 11.9 fL 9.4-12.4 (BEAKER) (test code = 754) NUCLEATED RED BLOOD 0 /100 WBC 0-0 CELLS (BEAKER) (test code = 413) NEUTROPHILS RELATIVE 79 % PERCENT (BEAKER) (test code = 429) LYMPHOCYTES RELATIVE 14 % PERCENT (BEAKER) (test code = 430) MONOCYTES RELATIVE 7 % PERCENT (BEAKER) (test code = 431) EOSINOPHILS RELATIVE 0 % PERCENT (BEAKER) (test code = 432) BASOPHILS RELATIVE 0 % PERCENT (BEAKER) (test code = 437) NEUTROPHILS ABSOLUTE 8.60 K/ L 1.78-5.38 H COUNT (BEAKER) (test code = 670) LYMPHOCYTES ABSOLUTE 1.48 K/ L 1.32-3.57 COUNT (BEAKER) (test code = 414) MONOCYTES ABSOLUTE 0.73 K/ L 0.30-0.82 COUNT (BEAKER) (test code = 415) EOSINOPHILS ABSOLUTE 0.04 K/ L 0.04-0.54 COUNT (BEAKER) (test code = 416) BASOPHILS ABSOLUTE 0.01 K/ L 0.01-0.08 COUNT (BEAKER) (test code = 417) IMMATURE 1 % 0-1 GRANULOCYTES-RELATIVE PERCENT (BEAKER) (test code = 2801) [id number] 00:58:00 Test Item Value Reference Range Interpretation Comments CORTISOL, TOTAL (BEAKER) (test 10.6 ug/dL 3.7-19.4 code = 2755) Metal Tube Cutter ID - BSPOCT-GLUCOSE [id number] 00:35:00 Test Item Value Reference Range Interpretation Comments POC-GLUCOSE METER 105 mg/dL 70-110 : [facility] ([facility] (test code = ILDA ROBLERO [place], 1538) [address]: Metal Tube Cutter/Techni aaron ID = [id number] for Yuli Conklin RAD, CHEST, 1 VIEW, NON [id number] 22:34:00On arrival to [facility] for exam:->s/p R VATS decorticationShould this [facility]?->YesFINAL REPORT TECHNIQUE: Frontal view of the [...] MDReport Verified Date/Time: 04/14/2019 22:34:49 Reading Location: [address] Consult Reading Room [id number] 20:24:00 Test Item Value Reference Range Interpretation Comments PHOSPHORUS (BEAKER) (test code = 4.0 mg/dL 2.3-4.7 604) Metal Tube Cutter ID - [id number] 20:24:00 Test Item Value Reference Range Interpretation Comments MAGNESIUM (BEAKER) (test code = 1.8 mg/dL 1.6-2.6 627) Metal Tube Cutter ID - BSBLOOD GAS, [id number] 20:22:00 Test Item Value Reference Range Interpretation Comments PH ARTERIAL (BEAKER) (test code = 7.44 7.35-7.45 383) PCO2 ARTERIAL (BEAKER) (test code 39 mmHg 35-45 = 384) PO2 ARTERIAL (BEAKER) (test code = 220 mmHg 80-90 H 385) O2 SATURATION ARTERIAL (BEAKER) 99.5 % 96.0-97.0 H (test code = 386) HCO3 ARTERIAL (BEAKER) (test code 26 mmol/L 21-29 = 388) BASE EXCESS ARTERIAL (BEAKER) 1.5 mmol/L -2.0-3.0 (test code = 387) PATIENT TEMPERATURE (BEAKER) (test 36.8 C code = 1818) FIO2 (BEAKER) (test code = 1819) 80.0 % CALCIUM, [id number] 20:19:00 Test Item Value Reference Range Interpretation Comments CALCIUM IONIZED (BEAKER) (test 1.23 mmol/L 1.12-1.27 code = 698) PH, BLOOD (BEAKER) (test code = 7.44 1810) COMPREHENSIVE METABOLIC [id number] 19:53:00 Test Item Value Reference Range Interpretation Comments TOTAL PROTEIN 5.5 gm/dL 6.0-8.3 L (BEAKER) (test code = 770) ALBUMIN (BEAKER) 1.8 g/dL 3.5-5.0 L (test code = 1145) ALKALINE PHOSPHATASE 157 U/L 40-150 H (BEAKER) (test code = 346) BILIRUBIN TOTAL 1.0 mg/dL 0.2-1.2 (BEAKER) (test code = 377) SODIUM (BEAKER) (test 141 meq/L 136-145 code = 381) POTASSIUM (BEAKER) 3.6 meq/L 3.5-5.1 (test code = 379) CHLORIDE (BEAKER) 107 meq/L 98-107 (test code = 382) CO2 (BEAKER) (test 25 meq/L 22-29 code = 355) BLOOD UREA NITROGEN 16 mg/dL 7-21 (BEAKER) (test code = 354) CREATININE (BEAKER) 0.88 mg/dL 0.57-1.25 (test code = 358) GLUCOSE RANDOM 99 mg/dL 70-105 (BEAKER) (test code = 652) CALCIUM (BEAKER) 7.7 mg/dL 8.4-10.2 L (test code = 697) AST (SGOT) (BEAKER) 38 U/L 5-34 H (test code = 353) ALT (SGPT) (BEAKER) 30 U/L 6-55 (test code = 347) EGFR (BEAKER) (test 87 mL/min/1.73 ESTIMA ARLENE GFR IS code = 1092) sq m NOT ACCURATE CREATININE CLEARANCE IN PREDICTING GLOMERULAR FILTRATION RATE . ESTIMATED GFR I S NOT APPLICABLE FOR DIALYSIS PATIEN TS. Metal Tube Cutter ID - BSBLOOD GAS, [id number] 17:56:00 Test Item Value Reference Range Interpretation Comments PH ARTERIAL (BEAKER) (test code = 7.48 7.35-7.45 H 383) PCO2 ARTERIAL (BEAKER) (test code 37 mmHg 35-45 = 384) PO2 ARTERIAL (BEAKER) (test code = 391 mmHg 80-90 H 385) O2 SATURATION ARTERIAL (BEAKER) 99.8 % 96.0-97.0 H (test code = 386) HCO3 ARTERIAL (BEAKER) (test code 27 mmol/L 21-29 = 388) BASE EXCESS ARTERIAL (BEAKER) 2.8 mmol/L -2.0-3.0 (test code = 387) PATIENT TEMPERATURE (BEAKER) (test 36.0 C code = 1818) FIO2 (BEAKER) (test code = 1819) 100.0 % CALCIUM, [id number] 17:56:00 Test Item Value Reference Range Interpretation Comments CALCIUM IONIZED (BEAKER) (test 1.30 mmol/L 1.12-1.27 H code = 698) PH, BLOOD (BEAKER) (test code = 7.46 1810) POTASSIUM-STAT [id number] 17:56:00 Test Item Value Reference Range Interpretation Comments POTASSIUM (BEAKER) (test code = 3.4 meq/L 3.6-5.5 L 379) HGB/HCT (H&H) - STAT [id number] 17:56:00 Test Item Value Reference Range Interpretation Comments HEMOGLOBIN (BEAKER) (test code = 9.0 g/dL 13.0-16.8 L 410) HEMATOCRIT (BEAKER) (test code = 26.0 % 40.0-50.0 L 411) GLUCOSE-STAT [id number] 17:55:00 Test Item Value Reference Range Interpretation Comments GLUCOSE RANDOM (BEAKER) (test code 100 mg/dL 70-110 = 652) SODIUM NA-STAT [id number] 17:55:00 Test Item Value Reference Range Interpretation Comments SODIUM (BEAKER) (test code = 381) 138 meq/L 135-148 BLOOD GAS, [id number] 16:42:00 Test Item Value Reference Range Interpretation Comments PH ARTERIAL (BEAKER) (test code = 7.52 7.35-7.45 H 383) PCO2 ARTERIAL (BEAKER) (test code 35 mmHg 35-45 = 384) PO2 ARTERIAL (BEAKER) (test code = 263 mmHg 80-90 H 385) O2 SATURATION ARTERIAL (BEAKER) 99.7 % 96.0-97.0 H (test code = 386) HCO3 ARTERIAL (BEAKER) (test code 28 mmol/L 21-29 = 388) BASE EXCESS ARTERIAL (BEAKER) 5.1 mmol/L -2.0-3.0 H (test code = 387) PATIENT TEMPERATURE (BEAKER) (test 36.2 C code = 1818) FIO2 (BEAKER) (test code = 1819) 100.0 % POTASSIUM-STAT [id number] 16:42:00 Test Item Value Reference Range Interpretation Comments POTASSIUM (BEAKER) (test code = 3.4 meq/L 3.6-5.5 L 379) HGB/HCT (H&H) - STAT [id number] 16:42:00 Test Item Value Reference Range Interpretation Comments HEMOGLOBIN (BEAKER) (test code = 10.1 g/dL 13.0-16.8 L 410) HEMATOCRIT (BEAKER) (test code = 30.0 % 40.0-50.0 L 411) CALCIUM, [id number] 16:41:00 Test Item Value Reference Range Interpretation Comments CALCIUM IONIZED (BEAKER) (test 1.12 mmol/L 1.12-1.27 code = 698) PH, BLOOD (BEAKER) (test code = 7.51 1810) GLUCOSE-STAT [id number] 16:39:00 Test Item Value Reference Range Interpretation Comments GLUCOSE RANDOM (BEAKER) (test code 104 mg/dL 70-110 = 652) SODIUM NA-STAT [id number] 16:39:00 Test Item Value Reference Range Interpretation Comments SODIUM (BEAKER) (test code = 381) 137 meq/L 135-148 GLUCOSE-STAT [id number] 15:31:00 Test Item Value Reference Range Interpretation Comments GLUCOSE RANDOM (BEAKER) (test code = 92 mg/dL 70-110 652) SODIUM NA-STAT [id number] 15:31:00 Test Item Value Reference Range Interpretation Comments SODIUM (BEAKER) (test code = 381) 135 meq/L 135-148 CALCIUM, [id number] 15:31:00 Test Item Value Reference Range Interpretation Comments CALCIUM IONIZED (BEAKER) (test 1.07 mmol/L 1.12-1.27 L code = 698) PH, BLOOD (BEAKER) (test code = 7.55 1810) BLOOD GAS, [id number] 15:31:00 Test Item Value Reference Range Interpretation Comments PH ARTERIAL (BEAKER) (test code = 7.55 7.35-7.45 H 383) PCO2 ARTERIAL (BEAKER) (test code 33 mmHg 35-45 L = 384) PO2 ARTERIAL (BEAKER) (test code = 390 mmHg 80-90 H 385) O2 SATURATION ARTERIAL (BEAKER) 99.9 % 96.0-97.0 H (test code = 386) HCO3 ARTERIAL (BEAKER) (test code 28 mmol/L 21-29 = 388) BASE EXCESS ARTERIAL (BEAKER) 5.3 mmol/L -2.0-3.0 H (test code = 387) PATIENT TEMPERATURE (BEAKER) (test 36.3 C code = 1818) FIO2 (BEAKER) (test code = 1819) 100.0 % POTASSIUM-STAT [id number] 15:31:00 Test Item Value Reference Range Interpretation Comments POTASSIUM (BEAKER) (test code = 3.4 meq/L 3.6-5.5 L 379) HGB/HCT (H&H) - STAT [id number] 15:31:00 Test Item Value Reference Range Interpretation Comments HEMOGLOBIN (BEAKER) (test code = 10.2 g/dL 13.0-16.8 L 410) HEMATOCRIT (BEAKER) (test code = 30.0 % 40.0-50.0 L 411) RAD, CHEST, 1 VIEW, NON [id number] 10:51:00Reason for exam:->eval pleural effusionsShould this be [...] right upper quadrant of the abdomen. Signed: Frdei Maldonado MDReport Verified Date/Time: 04/14/2019 10:51:03 Reading Location: [facility] Women BASIC METABOLIC [id number] 01:52:00 Test Item Value Reference Range Interpretation Comments SODIUM (BEAKER) 138 meq/L 136-145 (test code = 381) POTASSIUM (BEAKER) 3.5 meq/L 3.5-5.1 (test code = 379) CHLORIDE (BEAKER) 105 meq/L 98-107 (test code = 382) CO2 (BEAKER) (test 29 meq/L 22-29 code = 355) BLOOD UREA NITROGEN 16 mg/dL 7-21 (BEAKER) (test code = 354) CREATININE (BEAKER) 0.86 mg/dL 0.57-1.25 (test code = 358) GLUCOSE RANDOM 109 mg/dL 70-105 H (BEAKER) (test code = 652) CALCIUM (BEAKER) 7.6 mg/dL 8.4-10.2 L (test code = 697) EGFR (BEAKER) (test 90 mL/min/1.73 ESTIMA ARLENE GFR IS code = 1092) sq m NOT ACCURATE CREATININE CLEARANCE IN PREDICTING GLOMERULAR FILTRATION RATE . ESTIMATED GFR I S NOT APPLICABLE FOR DIALYSIS PATIEN TS. Metal Tube Cutter ID - PIBECKY [id number] 01:51:00 Test Item Value Reference Range Interpretation Comments PHOSPHORUS (BEAKER) (test code = 2.8 mg/dL 2.3-4.7 604) Metal Tube Cutter ID - PIBECKY [id number] 01:51:00 Test Item Value Reference Range Interpretation Comments MAGNESIUM (BEAKER) (test code = 2.1 mg/dL 1.6-2.6 627) Metal Tube Cutter ID - EMILIE LCBC W/PLT COUNT & AUTO [id number] 01:30:00 Test Item Value Reference Range Interpretation Comments WHITE BLOOD CELL COUNT (BEAKER) 6.4 K/ L 3.5-10.5 (test code = 775) RED BLOOD CELL COUNT (BEAKER) 4.04 M/ L 4.63-6.08 L (test code = 761) HEMOGLOBIN (BEAKER) (test code = 10.4 GM/DL 13.7-17.5 L 410) HEMATOCRIT (BEAKER) (test code = 33.4 % 40.1-51.0 L 411) MEAN CORPUSCULAR VOLUME (BEAKER) 82.7 fL 79.0-92.2 (test code = 753) MEAN CORPUSCULAR HEMOGLOBIN 25.7 pg 25.7-32.2 (BEAKER) (test code = 751) MEAN CORPUSCULAR HEMOGLOBIN CONC 31.1 GM/DL 32.3-36.5 L (BEAKER) (test code = 752) RED CELL DISTRIBUTION WIDTH 23.1 % 11.6-14.4 H (BEAKER) (test code = 412) PLATELET COUNT (BEAKER) (test 183 K/CU MM 150-450 code = 756) MEAN PLATELET VOLUME (BEAKER) 11.9 fL 9.4-12.4 (test code = 754) NUCLEATED RED BLOOD CELLS 0 /100 WBC 0-0 (BEAKER) (test code = 413) NEUTROPHILS RELATIVE PERCENT 50 % (BEAKER) (test code = 429) LYMPHOCYTES RELATIVE PERCENT 34 % (BEAKER) (test code = 430) MONOCYTES RELATIVE PERCENT 12 % (BEAKER) (test code = 431) EOSINOPHILS RELATIVE PERCENT 3 % (BEAKER) (test code = 432) BASOPHILS RELATIVE PERCENT 1 % (BEAKER) (test code = 437) NEUTROPHILS ABSOLUTE COUNT 3.19 K/ L 1.78-5.38 (BEAKER) (test code = 670) LYMPHOCYTES ABSOLUTE COUNT 2.13 K/ L 1.32-3.57 (BEAKER) (test code = 414) MONOCYTES ABSOLUTE COUNT (BEAKER) 0.77 K/ L 0.30-0.82 (test code = 415) EOSINOPHILS ABSOLUTE COUNT 0.21 K/ L 0.04-0.54 (BEAKER) (test code = 416) BASOPHILS ABSOLUTE COUNT (BEAKER) 0.04 K/ L 0.01-0.08 (test code = 417) IMMATURE GRANULOCYTES-RELATIVE 0 % 0-1 PERCENT (BEAKER) (test code = 2801) PROTHROMBIN [id number] 01:26:00 Test Item Value Reference Range Interpretation Comments PROTIME (BEAKER) (test code = 14.7 seconds 11.9-14.2 H 759) INR (BEAKER) (test code = 370) 1.2 <=5.9 Effective 07/24/2018: PT Reference Range ChangeNew: 11.9-14.2 Previous: 11.7- 14.7RECOMMENDED COUMADIN/WARFARIN INR THERAPY RANGESSTANDARD DOSE: 2.0-3.0 Includes: PROPHYLAXIS for venous thrombosis, systemic embolization; TREATMENT for venous thrombosis and/or pulmonary embolus.HIGH RISK: Target INR is2.5-3.5 for patients wiht mechanical heart valves.POCT-GLUCOSE [id number] 20:47:00 Test Item Value Reference Range Interpretation Comments POC-GLUCOSE METER 114 mg/dL 70-110 H : TESTED A T [facility] 6720 (BEAKER) (test code = ILDA Calvert [facility], 1538) 137[address]: Metal Tube Cutter/Techni aaron ID = [id number] for CL ARK, ALBERTINA POCT-GLUCOSE [id number] 17:43:00 Test Item Value Reference Range Interpretation Comments POC-GLUCOSE METER 117 mg/dL 70-110 H : TESTED A T [facility] 6720 (BEAKER) (test code [facility], = 1538) [address]: Metal Tube Cutter/Techni aaron ID = [id number] for LEWI S, LATANDRIA POCT-GLUCOSE [id number] 12:16:00 Test Item Value Reference Range Interpretation Comments POC-GLUCOSE METER 111 mg/dL 70-110 H : TESTED A T [facility] 6720 (BEAKER) (test code [facility], = 1538) [address]: Metal Tube Cutter/Techni aaron ID = [id number] for LEWI S, [place] RAD, CHEST, 1 VIEW, NON [id number] 08:47:00Reason for exam:->right pleural effusion s/p TPAShould [...] MDReport Verified Date/Time: 04/13/2019 08:47:02 Reading Location: [address] Transitional Reading Room Electronically s igned by: FREDI LUCAS MD on 04/13/2019 08:47 AMBASIC METABOLIC PANEL 2019-04-13 06:13:00 Test Item Value Reference Range Interpretation Comments SODIUM (BEAKER) 139 meq/L 136-145 (test code = 381) POTASSIUM (BEAKER) 3.3 meq/L 3.5-5.1 L (test code = 379) CHLORIDE (BEAKER) 106 meq/L 98-107 (test code = 382) CO2 (BEAKER) (test 28 meq/L 22-29 code = 355) BLOOD UREA NITROGEN 15 mg/dL 7-21 (BEAKER) (test code = 354) CREATININE (BEAKER) 0.82 mg/dL 0.57-1.25 (test code = 358) GLUCOSE RANDOM 98 mg/dL 70-105 (BEAKER) (test code = 652) CALCIUM (BEAKER) 7.6 mg/dL 8.4-10.2 L (test code = 697) EGFR (BEAKER) (test 95 mL/min/1.73 ESTIMA ARLENE GFR IS code = 1092) sq m NOT ACCURATE CREATININE CLEARANCE IN PREDICTING GLOMERULAR FILTRATION RATE . ESTIMATED GFR I S NOT APPLICABLE FOR DIALYSIS PATIEN TS. Metal Tube Cutter ID - [facility] [id number] 06:12:00 Test Item Value Reference Range Interpretation Comments TOTAL PROTEIN (BEAKER) (test code = 5.5 gm/dL 6.0-8.3 L 770) ALBUMIN (BEAKER) (test code = 1145) 1.8 g/dL 3.5-5.0 L BILIRUBIN TOTAL (BEAKER) (test code 1.1 mg/dL 0.2-1.2 = 377) BILIRUBIN DIRECT (BEAKER) (test 0.7 mg/dL 0.1-0.5 H code = 706) ALKALINE PHOSPHATASE (BEAKER) (test 157 U/L 40-150 H code = 346) AST (SGOT) (BEAKER) (test code = 38 U/L 5-34 H 353) ALT (SGPT) (BEAKER) (test code = 34 U/L 6-55 347) Metal Tube Cutter ID - KENNPOCT-GLUCOSE [id number] 06:10:00 Test Item Value Reference Range Interpretation Comments POC-GLUCOSE METER 126 mg/dL 70-110 H : TESTED A T [facility] 6720 (BEAKER) (test code = [place], 1538) [address]: Metal Tube Cutter/Techni aaron ID = [id number] for CH UA, HENRISON CBC W/PLT COUNT & AUTO [id number] 06:07:00 Test Item Value Reference Range Interpretation Comments WHITE BLOOD CELL COUNT (BEAKER) 7.1 K/ L 3.5-10.5 (test code = 775) RED BLOOD CELL COUNT (BEAKER) 3.79 M/ L 4.63-6.08 L (test code = 761) HEMOGLOBIN (BEAKER) (test code = 9.7 GM/DL 13.7-17.5 L 410) HEMATOCRIT (BEAKER) (test code = 31.6 % 40.1-51.0 L 411) MEAN CORPUSCULAR VOLUME (BEAKER) 83.4 fL 79.0-92.2 (test code = 753) MEAN CORPUSCULAR HEMOGLOBIN 25.6 pg 25.7-32.2 L (BEAKER) (test code = 751) MEAN CORPUSCULAR HEMOGLOBIN CONC 30.7 GM/DL 32.3-36.5 L (BEAKER) (test code = 752) RED CELL DISTRIBUTION WIDTH 23.4 % 11.6-14.4 H (BEAKER) (test code = 412) PLATELET COUNT (BEAKER) (test 171 K/CU MM 150-450 code = 756) MEAN PLATELET VOLUME (BEAKER) 12.2 fL 9.4-12.4 (test code = 754) NUCLEATED RED BLOOD CELLS 0 /100 WBC 0-0 (BEAKER) (test code = 413) NEUTROPHILS RELATIVE PERCENT 56 % (BEAKER) (test code = 429) LYMPHOCYTES RELATIVE PERCENT 28 % (BEAKER) (test code = 430) MONOCYTES RELATIVE PERCENT 13 % (BEAKER) (test code = 431) EOSINOPHILS RELATIVE PERCENT 3 % (BEAKER) (test code = 432) BASOPHILS RELATIVE PERCENT 0 % (BEAKER) (test code = 437) NEUTROPHILS ABSOLUTE COUNT 3.95 K/ L 1.78-5.38 (BEAKER) (test code = 670) LYMPHOCYTES ABSOLUTE COUNT 1.96 K/ L 1.32-3.57 (BEAKER) (test code = 414) MONOCYTES ABSOLUTE COUNT (BEAKER) 0.90 K/ L 0.30-0.82 H (test code = 415) EOSINOPHILS ABSOLUTE COUNT 0.20 K/ L 0.04-0.54 (BEAKER) (test code = 416) BASOPHILS ABSOLUTE COUNT (BEAKER) 0.03 K/ L 0.01-0.08 (test code = 417) IMMATURE GRANULOCYTES-RELATIVE 0 % 0-1 PERCENT (BEAKER) (test code = 2801) [id number] 06:07:00 Test Item Value Reference Range Interpretation Comments PHOSPHORUS (BEAKER) (test code = 3.0 mg/dL 2.3-4.7 604) Metal Tube Cutter ID - [id number] 06:07:00 Test Item Value Reference Range Interpretation Comments MAGNESIUM (BEAKER) (test code = 2.1 mg/dL 1.6-2.6 627) Metal Tube Cutter ID - [id number] 05:52:00 Test Item Value Reference Range Interpretation Comments PARTIAL THROMBOPLASTIN TIME 32.7 seconds 22.5-36.0 (BEAKER) (test code = 760) POCT-GLUCOSE [id number] 17:32:00 Test Item Value Reference Range Interpretation Comments POC-GLUCOSE METER 83 mg/dL 70-110 : TESTED A T [facility] 6720 (BEAKER) (test code = [facility], 1538) 42[address]: Metal Tube Cutter/Techni aaron ID = [id number] for STOJ CIC, NADA BODY FLUID CULTURE + GRAM [id number] 14:07:00 Test Item Value Reference Range Interpretation Comments CULTURE (BEAKER) (test No growth code = 1095) GRAM STAIN RESULT <1+ WBCs (BEAKER) (test code = 1123) GRAM STAIN RESULT <1+ gram negative rods (BEAKER) (test code = 84808) POCT-GLUCOSE [id number] 12:20:00 Test Item Value Reference Range Interpretation Comments POC-GLUCOSE METER 84 mg/dL 70-110 : TESTED A T [facility] 67[facility] (BEAKER) (test code = [place], 1538) [address]: Metal Tube Cutter/Techni aaron ID = [id number] for MARQUIS DE ANDA CIC RAD, CHEST, 1 VIEW, NON [id number] 07:44:00Reason for exam:->eval pleural effusionsShould this be [...] nosignificant change since 04/11/2019. Signed: Tonie Rivas MDReport Verified Date/Time: 04/12/201907:44:33 Reading Location: [facility] C013Y CT Body Reading Room BASIC METABOLIC [id number] 06:46:00 Test Item Value Reference Range Interpretation Comments SODIUM (BEAKER) 142 meq/L 136-145 (test code = 381) POTASSIUM (BEAKER) 3.2 meq/L 3.5-5.1 L (test code = 379) CHLORIDE (BEAKER) 107 meq/L 98-107 (test code = 382) CO2 (BEAKER) (test 29 meq/L 22-29 code = 355) BLOOD UREA NITROGEN 18 mg/dL 7-21 (BEAKER) (test code = 354) CREATININE (BEAKER) 0.89 mg/dL 0.57-1.25 (test code = 358) GLUCOSE RANDOM 80 mg/dL 70-105 (BEAKER) (test code = 652) CALCIUM (BEAKER) 7.4 mg/dL 8.4-10.2 L (test code = 697) EGFR (BEAKER) (test 86 mL/min/1.73 ESTIMA ARLENE GFR IS code = 1092) sq m NOT ACCURATE CREATININE CLEARANCE IN PREDICTING GLOMERULAR FILTRATION RATE . ESTIMATED GFR I S NOT APPLICABLE FOR DIALYSIS PATIEN TS. Metal Tube Cutter ID - ELISSA MCBC W/PLT COUNT & AUTO [id number] 06:45:00 Test Item Value Reference Range Interpretation Comments WHITE BLOOD CELL COUNT (BEAKER) 5.6 K/ L 3.5-10.5 (test code = 775) RED BLOOD CELL COUNT (BEAKER) 3.39 M/ L 4.63-6.08 L (test code = 761) HEMOGLOBIN (BEAKER) (test code = 8.6 GM/DL 13.7-17.5 L 410) HEMATOCRIT (BEAKER) (test code = 28.2 % 40.1-51.0 L 411) MEAN CORPUSCULAR VOLUME (BEAKER) 83.2 fL 79.0-92.2 (test code = 753) MEAN CORPUSCULAR HEMOGLOBIN 25.4 pg 25.7-32.2 L (BEAKER) (test code = 751) MEAN CORPUSCULAR HEMOGLOBIN CONC 30.5 GM/DL 32.3-36.5 L (BEAKER) (test code = 752) RED CELL DISTRIBUTION WIDTH 23.5 % 11.6-14.4 H (BEAKER) (test code = 412) PLATELET COUNT (BEAKER) (test 171 K/CU MM 150-450 code = 756) MEAN PLATELET VOLUME (BEAKER) 12.2 fL 9.4-12.4 (test code = 754) NUCLEATED RED BLOOD CELLS 0 /100 WBC 0-0 (BEAKER) (test code = 413) NEUTROPHILS RELATIVE PERCENT 49 % (BEAKER) (test code = 429) LYMPHOCYTES RELATIVE PERCENT 33 % (BEAKER) (test code = 430) MONOCYTES RELATIVE PERCENT 13 % (BEAKER) (test code = 431) EOSINOPHILS RELATIVE PERCENT 5 % (BEAKER) (test code = 432) BASOPHILS RELATIVE PERCENT 1 % (BEAKER) (test code = 437) NEUTROPHILS ABSOLUTE COUNT 2.74 K/ L 1.78-5.38 (BEAKER) (test code = 670) LYMPHOCYTES ABSOLUTE COUNT 1.82 K/ L 1.32-3.57 (BEAKER) (test code = 414) MONOCYTES ABSOLUTE COUNT (BEAKER) 0.72 K/ L 0.30-0.82 (test code = 415) EOSINOPHILS ABSOLUTE COUNT 0.25 K/ L 0.04-0.54 (BEAKER) (test code = 416) BASOPHILS ABSOLUTE COUNT (BEAKER) 0.03 K/ L 0.01-0.08 (test code = 417) IMMATURE GRANULOCYTES-RELATIVE 0 % 0-1 PERCENT (BEAKER) (test code = 2801) [id number] 06:45:00 Test Item Value Reference Range Interpretation Comments PHOSPHORUS (BEAKER) (test code = 3.8 mg/dL 2.3-4.7 604) Metal Tube Cutter ID - ELISSA [id number] 06:45:00 Test Item Value Reference Range Interpretation Comments MAGNESIUM (BEAKER) (test code = 2.1 mg/dL 1.6-2.6 627) Metal Tube Cutter ID - ELISSA MPOCT-GLUCOSE [id number] 05:33:00 Test Item Value Reference Range Interpretation Comments POC-GLUCOSE METER 78 mg/dL 70-110 : TESTED A T [facility] 6720 (BEAKER) (test code = [facility] [employer] [facility], 1538) [address]: Metal Tube Cutter/Techni aaron ID = [id number] for LEGA SPI, BARI POCT-GLUCOSE [id number] 00:19:00 Test Item Value Reference Range Interpretation Comments POC-GLUCOSE METER 78 mg/dL 70-110 : Notified RN/MD: TESTED (BEAKER) (test code = AT [facility] 67[address] [facility] 1538) [facility], 7[address]: Metal Tube Cutter/Techni aaron ID = [id number] for LEGA SPI, BARI POCT-GLUCOSE [id number] 17:51:00 Test Item Value Reference Range Interpretation Comments POC-GLUCOSE METER 89 mg/dL 70-110 : TESTED A T [facility] 6720 (BEAKER) (test code = [facility], 1538) [address]: Metal Tube Cutter/Techni aaron ID = [id number] for RADHA CLAROS RAD, CHEST, 1 VIEW, NON [id number] 13:20:00Reason for exam:->eval pleural effusionsShould this be [...] 2019-04-11 12:21:00 Test Item Value Reference Range Interpretation Comments POC-GLUCOSE METER 82 mg/dL 70-110 : TESTED A T [facility] 6720 (BEAKER) (test code = [employer] [facility], 1538) [address]: Metal Tube Cutter/Techni aaron ID = [id number] for RADHA CLAROS POCT-GLUCOSE [id number] 10:51:00 Test Item Value Reference Range Interpretation Comments POC-GLUCOSE METER 84 mg/dL 70-110 : TESTED A T [facility] 6720 (BEAKER) (test code = [employer] [place], 1538) 31740: Metal Tube Cutter/Techni aaron ID = [id number] for MIKE DAVIDSON BASIC METABOLIC [id number] 08:47:00 Test Item Value Reference Range Interpretation Comments SODIUM (BEAKER) 139 meq/L 136-145 (test code = 381) POTASSIUM (BEAKER) 3.2 meq/L 3.5-5.1 L (test code = 379) CHLORIDE (BEAKER) 105 meq/L 98-107 (test code = 382) CO2 (BEAKER) (test 27 meq/L 22-29 code = 355) BLOOD UREA NITROGEN 23 mg/dL 7-21 H (BEAKER) (test code = 354) CREATININE (BEAKER) 0.88 mg/dL 0.57-1.25 (test code = 358) GLUCOSE RANDOM 81 mg/dL 70-105 (BEAKER) (test code = 652) CALCIUM (BEAKER) 7.0 mg/dL 8.4-10.2 L (test code = 697) EGFR (BEAKER) (test 87 mL/min/1.73 ESTIMA ARLENE GFR IS code = 1092) sq m NOT ACCURATE CREATININE CLEARANCE IN PREDICTING GLOMERULAR FILTRATION RATE . ESTIMATED GFR I S NOT APPLICABLE FOR DIALYSIS PATIEN TS. Metal Tube Cutter ID - SONIA [id number] 08:46:00 Test Item Value Reference Range Interpretation Comments PHOSPHORUS (BEAKER) (test code = 3.3 mg/dL 2.3-4.7 604) Metal Tube Cutter ID - SONIA [id number] 08:46:00 Test Item Value Reference Range Interpretation Comments MAGNESIUM (BEAKER) (test code = 2.2 mg/dL 1.6-2.6 627) Metal Tube Cutter ID - SONIA FPOCT-GLUCOSE [id number] 07:13:00 Test Item Value Reference Range Interpretation Comments POC-GLUCOSE METER 84 mg/dL 70-110 : TESTED A T [facility] 67[facility] (BEAKER) (test code = [place], 1538) [id number]: Metal Tube Cutter/Techni aaron ID = [id number] for SUBL ET, MARÍA CBC W/PLT COUNT & AUTO [id number] 06:26:00 Test Item Value Reference Range Interpretation Comments WHITE BLOOD CELL COUNT (BEAKER) 5.6 K/ L 3.5-10.5 (test code = 775) RED BLOOD CELL COUNT (BEAKER) 3.50 M/ L 4.63-6.08 L (test code = 761) HEMOGLOBIN (BEAKER) (test code = 9.0 GM/DL 13.7-17.5 L 410) HEMATOCRIT (BEAKER) (test code = 29.0 % 40.1-51.0 L 411) MEAN CORPUSCULAR VOLUME (BEAKER) 82.9 fL 79.0-92.2 (test code = 753) MEAN CORPUSCULAR HEMOGLOBIN 25.7 pg 25.7-32.2 (BEAKER) (test code = 751) MEAN CORPUSCULAR HEMOGLOBIN CONC 31.0 GM/DL 32.3-36.5 L (BEAKER) (test code = 752) RED CELL DISTRIBUTION WIDTH 23.6 % 11.6-14.4 H (BEAKER) (test code = 412) PLATELET COUNT (BEAKER) (test 153 K/CU MM 150-450 code = 756) MEAN PLATELET VOLUME (BEAKER) 12.0 fL 9.4-12.4 (test code = 754) NUCLEATED RED BLOOD CELLS 0 /100 WBC 0-0 (BEAKER) (test code = 413) NEUTROPHILS RELATIVE PERCENT 45 % (BEAKER) (test code = 429) LYMPHOCYTES RELATIVE PERCENT 38 % (BEAKER) (test code = 430) MONOCYTES RELATIVE PERCENT 11 % (BEAKER) (test code = 431) EOSINOPHILS RELATIVE PERCENT 5 % (BEAKER) (test code = 432) BASOPHILS RELATIVE PERCENT 1 % (BEAKER) (test code = 437) NEUTROPHILS ABSOLUTE COUNT 2.52 K/ L 1.78-5.38 (BEAKER) (test code = 670) LYMPHOCYTES ABSOLUTE COUNT 2.15 K/ L 1.32-3.57 (BEAKER) (test code = 414) MONOCYTES ABSOLUTE COUNT (BEAKER) 0.64 K/ L 0.30-0.82 (test code = 415) EOSINOPHILS ABSOLUTE COUNT 0.28 K/ L 0.04-0.54 (BEAKER) (test code = 416) BASOPHILS ABSOLUTE COUNT (BEAKER) 0.03 K/ L 0.01-0.08 (test code = 417) IMMATURE GRANULOCYTES-RELATIVE 0 % 0-1 PERCENT (BEAKER) (test code = 2801) PROTHROMBIN TIME/[id number] 06:22:00 Test Item Value Reference Range Interpretation Comments PROTIME (BEAKER) (test code = 14.4 seconds 11.9-14.2 H 759) INR (BEAKER) (test code = 370) 1.2 <=5.9 Effective 07/24/2018: PT Reference Range ChangeNew: 11.9-14.2 Previous: 11.7- 14.7RECOMMENDED COUMADIN/WARFARIN INR THERAPY RANGESSTANDARD DOSE: 2.0-3.0 Includes: PROPHYLAXIS for venous thrombosis, systemic embolization; TREATMENT for venous thrombosis and/or pulmonary embolus.HIGH RISK: Target INR is2.5-3.5 for patients wiht mechanical heart valves.POCT-GLUCOSE [id number] 00:28:00 Test Item Value Reference Range Interpretation Comments POC-GLUCOSE METER 97 mg/dL 70-110 : TESTED Thanh T [facility] 6720 (BEAKER) (test code = ILDA Calvert [facility], 1538) [id number]: Metal Tube Cutter/Techni aaron ID = [id number] for MARÍA DON POCT-GLUCOSE [id number] 15:14:00 Test Item Value Reference Range Interpretation Comments POC-GLUCOSE METER 97 mg/dL 70-110 : TESTED A T [facility] 6720 (BEAKER) (test code = ILDA Calvert [facility], 1538) [id number]: Metal Tube Cutter/Techni aaron ID = [id number] for JAVIER IVY RAD, CHEST, 1 VIEW, NON [id number] 09:36:00Reason for exam:->eval pleural effusionsShould this be [...] MDReport Verified Date/Time: 04/10/2019 09:36:48 Reading Location: [facility] Radiology ReadingRoom BASIC METABOLIC PANEL 2019-04-10 06:20:00 Test Item Value Reference Range Interpretation Comments SODIUM (BEAKER) 140 meq/L 136-145 (test code = 381) POTASSIUM (BEAKER) 3.5 meq/L 3.5-5.1 (test code = 379) CHLORIDE (BEAKER) 106 meq/L 98-107 (test code = 382) CO2 (BEAKER) (test 31 meq/L 22-29 H code = 355) BLOOD UREA NITROGEN 25 mg/dL 7-21 H (BEAKER) (test code = 354) CREATININE (BEAKER) 0.80 mg/dL 0.57-1.25 (test code = 358) GLUCOSE RANDOM 113 mg/dL 70-105 H (BEAKER) (test code = 652) CALCIUM (BEAKER) 7.2 mg/dL 8.4-10.2 L (test code = 697) EGFR (BEAKER) (test 97 mL/min/1.73 ESTIMA ARLENE GFR IS code = 1092) sq m NOT ACCURATE CREATININE CLEARANCE IN PREDICTING GLOMERULAR FILTRATION RATE . ESTIMATED GFR I S NOT APPLICABLE FOR DIALYSIS PATIEN TS. Metal Tube Cutter ID - [id number] 06:06:00 Test Item Value Reference Range Interpretation Comments PHOSPHORUS (BEAKER) (test code = 3.7 mg/dL 2.3-4.7 604) Metal Tube Cutter ID - [id number] 06:06:00 Test Item Value Reference Range Interpretation Comments MAGNESIUM (BEAKER) (test code = 2.0 mg/dL 1.6-2.6 627) Metal Tube Cutter ID - LACBC W/PLT COUNT & AUTO [id number] 05:54:00 Test Item Value Reference Range Interpretation Comments WHITE BLOOD CELL COUNT (BEAKER) 5.8 K/ L 3.5-10.5 (test code = 775) RED BLOOD CELL COUNT (BEAKER) 3.55 M/ L 4.63-6.08 L (test code = 761) HEMOGLOBIN (BEAKER) (test code = 9.1 GM/DL 13.7-17.5 L 410) HEMATOCRIT (BEAKER) (test code = 29.4 % 40.1-51.0 L 411) MEAN CORPUSCULAR VOLUME (BEAKER) 82.8 fL 79.0-92.2 (test code = 753) MEAN CORPUSCULAR HEMOGLOBIN 25.6 pg 25.7-32.2 L (BEAKER) (test code = 751) MEAN CORPUSCULAR HEMOGLOBIN CONC 31.0 GM/DL 32.3-36.5 L (BEAKER) (test code = 752) RED CELL DISTRIBUTION WIDTH 23.8 % 11.6-14.4 H (BEAKER) (test code = 412) PLATELET COUNT (BEAKER) (test 161 K/CU MM 150-450 code = 756) MEAN PLATELET VOLUME (BEAKER) 11.8 fL 9.4-12.4 (test code = 754) NUCLEATED RED BLOOD CELLS 0 /100 WBC 0-0 (BEAKER) (test code = 413) NEUTROPHILS RELATIVE PERCENT 48 % (BEAKER) (test code = 429) LYMPHOCYTES RELATIVE PERCENT 35 % (BEAKER) (test code = 430) MONOCYTES RELATIVE PERCENT 12 % (BEAKER) (test code = 431) EOSINOPHILS RELATIVE PERCENT 4 % (BEAKER) (test code = 432) BASOPHILS RELATIVE PERCENT 0 % (BEAKER) (test code = 437) NEUTROPHILS ABSOLUTE COUNT 2.79 K/ L 1.78-5.38 (BEAKER) (test code = 670) LYMPHOCYTES ABSOLUTE COUNT 2.02 K/ L 1.32-3.57 (BEAKER) (test code = 414) MONOCYTES ABSOLUTE COUNT (BEAKER) 0.70 K/ L 0.30-0.82 (test code = 415) EOSINOPHILS ABSOLUTE COUNT 0.24 K/ L 0.04-0.54 (BEAKER) (test code = 416) BASOPHILS ABSOLUTE COUNT (BEAKER) 0.02 K/ L 0.01-0.08 (test code = 417) IMMATURE GRANULOCYTES-RELATIVE 0 % 0-1 PERCENT (BEAKER) (test code = 2801) POCT-GLUCOSE [id number] 00:49:00 Test Item Value Reference Range Interpretation Comments POC-GLUCOSE METER 113 mg/dL 70-110 H : TESTED A T [facility] 6720 (BEAKER) (test code = [facility], 1538) 26937: Metal Tube Cutter/Techni aaron ID = [id number] for ALBERTINA MEADE POCT-GLUCOSE [id number] 17:50:00 Test Item Value Reference Range Interpretation Comments POC-GLUCOSE METER 86 mg/dL 70-110 : TESTED A T [facility] 6720 (BEAKER) (test code = Meludia [facility], 1538) 00294: Metal Tube Cutter/Techni aaron ID = [id number] for STOJ CIC, NADA FL, ESOPH, SWALLOW FUNCTION, WITH CINE OR [id number] 16:22:00Reason for exam:->dysphagia, on TFsFINAL REPORT Modified [...] minutes Number of images: 8 Signed: Nova Salazar Verified Date/Time: 04/09/2019 16:22:18 Reading Location: [facility] Radiology Reading Room POCT-GLUCOSE [id number] 12:00:00 Test Item Value Reference Range Interpretation Comments POC-GLUCOSE METER 97 mg/dL 70-110 : TESTED A T [facility] 6720 ([facility]) (test code = [facility], 1538) 95381: Metal Tube Cutter/Techni aaron ID = [id number] for DUON G, PRISCILLA POCT-GLUCOSE [id number] 09:53:00 Test Item Value Reference Range Interpretation Comments POC-GLUCOSE METER 102 mg/dL 70-110 : [facility] (test code = DOROTANE Enrike [facility], 1538) 34189: Metal Tube Cutter/Techni aaron ID = [id number] for DU GILBERTO, PRISCILLA RAD, CHEST, 1 VIEW, NON [id number] 07:20:00Reason for exam:->eval pleural effusionsShould this be [...] MDReport Verified Date/Time: 04/09/2019 07:20:55 Reading Location: [facility] Radiology Reading Room Electronically signed by: CHRISTIE Piña 04/09/2019 07:20 [id number] 06:48:00 Test Item Value Reference Range Interpretation Comments PHOSPHORUS (BEAKER) (test code = 2.8 mg/dL 2.3-4.7 604) Metal Tube Cutter ID - [id number] 06:48:00 Test Item Value Reference Range Interpretation Comments MAGNESIUM (BEAKER) (test code = 1.8 mg/dL 1.6-2.6 627) Metal Tube Cutter ID - GALAPBASIC METABOLIC [id number] 06:48:00 Test Item Value Reference Range Interpretation Comments SODIUM (BEAKER) 141 meq/L 136-145 (test code = 381) POTASSIUM (BEAKER) 3.3 meq/L 3.5-5.1 L (test code = 379) CHLORIDE (BEAKER) 106 meq/L 98-107 (test code = 382) CO2 (BEAKER) (test 31 meq/L 22-29 H code = 355) BLOOD UREA NITROGEN 27 mg/dL 7-21 H (BEAKER) (test code = 354) CREATININE (BEAKER) 0.73 mg/dL 0.57-1.25 (test code = 358) GLUCOSE RANDOM 85 mg/dL 70-105 (BEAKER) (test code = 652) CALCIUM (BEAKER) 7.2 mg/dL 8.4-10.2 L (test code = 697) EGFR (BEAKER) (test 108 mL/min/1.73 ESTIM ATED GFR IS code = 1092) sq m NOT ACCURATE CREATININE CLEARANCE IN PREDICTING GLOMERULAR FILTRATION RATE . ESTIMATED GFR I S NOT APPLICABLE FOR DIALYSIS PATIEN TS. Metal Tube Cutter ID - GALAPCBC W/PLT COUNT & AUTO [id number] 06:39:00 Test Item Value Reference Range Interpretation Comments WHITE BLOOD CELL COUNT (BEAKER) 7.0 K/ L 3.5-10.5 (test code = 775) RED BLOOD CELL COUNT (BEAKER) 3.87 M/ L 4.63-6.08 L (test code = 761) HEMOGLOBIN (BEAKER) (test code = 9.6 GM/DL 13.7-17.5 L 410) HEMATOCRIT (BEAKER) (test code = 32.3 % 40.1-51.0 L 411) MEAN CORPUSCULAR VOLUME (BEAKER) 83.5 fL 79.0-92.2 (test code = 753) MEAN CORPUSCULAR HEMOGLOBIN 24.8 pg 25.7-32.2 L (BEAKER) (test code = 751) MEAN CORPUSCULAR HEMOGLOBIN CONC 29.7 GM/DL 32.3-36.5 L (BEAKER) (test code = 752) RED CELL DISTRIBUTION WIDTH 24.4 % 11.6-14.4 H (BEAKER) (test code = 412) PLATELET COUNT (BEAKER) (test 183 K/CU MM 150-450 code = 756) MEAN PLATELET VOLUME (BEAKER) 12.0 fL 9.4-12.4 (test code = 754) NUCLEATED RED BLOOD CELLS 0 /100 WBC 0-0 (BEAKER) (test code = 413) NEUTROPHILS RELATIVE PERCENT 42 % (BEAKER) (test code = 429) LYMPHOCYTES RELATIVE PERCENT 39 % (BEAKER) (test code = 430) MONOCYTES RELATIVE PERCENT 13 % (BEAKER) (test code = 431) EOSINOPHILS RELATIVE PERCENT 6 % (BEAKER) (test code = 432) BASOPHILS RELATIVE PERCENT 0 % (BEAKER) (test code = 437) NEUTROPHILS ABSOLUTE COUNT 2.91 K/ L 1.78-5.38 (BEAKER) (test code = 670) LYMPHOCYTES ABSOLUTE COUNT 2.73 K/ L 1.32-3.57 (BEAKER) (test code = 414) MONOCYTES ABSOLUTE COUNT (BEAKER) 0.88 K/ L 0.30-0.82 H (test code = 415) EOSINOPHILS ABSOLUTE COUNT 0.41 K/ L 0.04-0.54 (BEAKER) (test code = 416) BASOPHILS ABSOLUTE COUNT (BEAKER) 0.03 K/ L 0.01-0.08 (test code = 417) IMMATURE GRANULOCYTES-RELATIVE 0 % 0-1 PERCENT (BEAKER) (test code = 2801) POCT-GLUCOSE [id number] 06:29:00 Test Item Value Reference Range Interpretation Comments POC-GLUCOSE METER 70 mg/dL 70-110 : TESTED A T [facility] 6720 (BEAKER) (test code = [facility], 1538) 77379: Metal Tube Cutter/Techni aaron ID = [id number] for SAURAV GRIMM POCT-GLUCOSE [id number] 05:40:00 Test Item Value Reference Range Interpretation Comments POC-GLUCOSE METER 90 mg/dL 70-110 : TESTED A T [facility] 6720 (BEAKER) (test code = [facility], 1538) 53672: Metal Tube Cutter/Techni aaron ID = [id number] for AMIE KEARNEY POCT-GLUCOSE [id number] 17:57:00 Test Item Value Reference Range Interpretation Comments POC-GLUCOSE METER 90 mg/dL 70-110 : TESTED A T [facility] 6720 (BEAKER) (test code = ILDA Calvert [facility], 153) 49375: Metal Tube Cutter/Techni aaron ID = [id number] for MARQUIS DE ANDA CIC POCT-GLUCOSE [id number] 12:47:00 Test Item Value Reference Range Interpretation Comments POC-GLUCOSE METER 97 mg/dL 70-110 : TESTED A T [facility] 6720 (BEAKER) (test code = DOROTANC Enrike [facility], 153) 45966: Metal Tube Cutter/Techni aaron ID = [id number] for JAVIER IVY RAD, CHEST, 1 VIEW, NON [id number] 07:33:00Reason for exam:->eval pleural effusionsShould this be [...] MDReport Verified Date/Time: 04/08/2019 07:33:22 Reading Location: [facility] Radiology Reading Room POCT-GLUCOSE [id number] 05:33:00 Test Item Value Reference Range Interpretation Comments POC-GLUCOSE METER 97 mg/dL 70-110 : TESTED A T [facility] 6720 (BEAKER) (test code = ILDA Calvert [facility], 153) 10296: Metal Tube Cutter/Techni aaron ID = [id number] for ELIAZAR DEY BASIC METABOLIC [id number] 05:33:00 Test Item Value Reference Range Interpretation Comments SODIUM (BEAKER) 145 meq/L 136-145 (test code = 381) POTASSIUM (BEAKER) 3.5 meq/L 3.5-5.1 (test code = 379) CHLORIDE (BEAKER) 110 meq/L 98-107 H (test code = 382) CO2 (BEAKER) (test 32 meq/L 22-29 H code = 355) BLOOD UREA NITROGEN 28 mg/dL 7-21 H (BEAKER) (test code = 354) CREATININE (BEAKER) 0.76 mg/dL 0.57-1.25 (test code = 358) GLUCOSE RANDOM 97 mg/dL 70-105 (BEAKER) (test code = 652) CALCIUM (BEAKER) 7.5 mg/dL 8.4-10.2 L (test code = 697) EGFR (BEAKER) (test 103 mL/min/1.73 ESTIM ATED GFR IS code = 1092) sq m NOT ACCURATE CREATININE CLEARANCE IN PREDICTING GLOMERULAR FILTRATION RATE . ESTIMATED GFR I S NOT APPLICABLE FOR DIALYSIS PATIEN TS. Metal Tube Cutter ID - [id number] 05:16:00 Test Item Value Reference Range Interpretation Comments PHOSPHORUS (BEAKER) (test code = 2.5 mg/dL 2.3-4.7 604) Metal Tube Cutter ID - [id number] 05:16:00 Test Item Value Reference Range Interpretation Comments MAGNESIUM (BEAKER) (test code = 1.9 mg/dL 1.6-2.6 627) Metal Tube Cutter ID - GALAPCBC W/PLT COUNT & AUTO [id number] 05:10:00 Test Item Value Reference Range Interpretation Comments WHITE BLOOD CELL COUNT (BEAKER) 6.8 K/ L 3.5-10.5 (test code = 775) RED BLOOD CELL COUNT (BEAKER) 4.00 M/ L 4.63-6.08 L (test code = 761) HEMOGLOBIN (BEAKER) (test code = 9.9 GM/DL 13.7-17.5 L 410) HEMATOCRIT (BEAKER) (test code = 34.3 % 40.1-51.0 L 411) MEAN CORPUSCULAR VOLUME (BEAKER) 85.8 fL 79.0-92.2 (test code = 753) MEAN CORPUSCULAR HEMOGLOBIN 24.8 pg 25.7-32.2 L (BEAKER) (test code = 751) MEAN CORPUSCULAR HEMOGLOBIN CONC 28.9 GM/DL 32.3-36.5 L (BEAKER) (test code = 752) RED CELL DISTRIBUTION WIDTH 25.2 % 11.6-14.4 H (BEAKER) (test code = 412) PLATELET COUNT (BEAKER) (test 190 K/CU MM 150-450 code = 756) MEAN PLATELET VOLUME (BEAKER) 11.8 fL 9.4-12.4 (test code = 754) NUCLEATED RED BLOOD CELLS 0 /100 WBC 0-0 (BEAKER) (test code = 413) NEUTROPHILS RELATIVE PERCENT 44 % (BEAKER) (test code = 429) LYMPHOCYTES RELATIVE PERCENT 36 % (BEAKER) (test code = 430) MONOCYTES RELATIVE PERCENT 13 % (BEAKER) (test code = 431) EOSINOPHILS RELATIVE PERCENT 7 % (BEAKER) (test code = 432) BASOPHILS RELATIVE PERCENT 0 % (BEAKER) (test code = 437) NEUTROPHILS ABSOLUTE COUNT 2.97 K/ L 1.78-5.38 (BEAKER) (test code = 670) LYMPHOCYTES ABSOLUTE COUNT 2.40 K/ L 1.32-3.57 (BEAKER) (test code = 414) MONOCYTES ABSOLUTE COUNT (BEAKER) 0.87 K/ L 0.30-0.82 H (test code = 415) EOSINOPHILS ABSOLUTE COUNT 0.48 K/ L 0.04-0.54 (BEAKER) (test code = 416) BASOPHILS ABSOLUTE COUNT (BEAKER) 0.02 K/ L 0.01-0.08 (test code = 417) IMMATURE GRANULOCYTES-RELATIVE 0 % 0-1 PERCENT (BEAKER) (test code = 2801) POCT-GLUCOSE [id number] 00:34:00 Test Item Value Reference Range Interpretation Comments POC-GLUCOSE METER 111 mg/dL 70-110 H : [facility] (test code = [place], 1538) 20273: Metal Tube Cutter/Techni aaron ID = [id number] for ELIAZAR ANAND BASIC METABOLIC [id number] 18:38:00 Test Item Value Reference Range Interpretation Comments SODIUM (BEAKER) 150 meq/L 136-145 H (test code = 381) POTASSIUM (BEAKER) 3.7 meq/L 3.5-5.1 Specimen slightly (test code = 379) hemolyzed CHLORIDE (BEAKER) 113 meq/L 98-107 H (test code = 382) CO2 (BEAKER) (test 34 meq/L 22-29 H code = 355) BLOOD UREA NITROGEN 30 mg/dL 7-21 H (BEAKER) (test code = 354) CREATININE (BEAKER) 0.81 mg/dL 0.57-1.25 Specimen slightly (test code = 358) hemolyzed GLUCOSE RANDOM 100 mg/dL 70-105 (BEAKER) (test code = 652) CALCIUM (BEAKER) 7.8 mg/dL 8.4-10.2 L (test code = 697) EGFR (BEAKER) (test 96 mL/min/1.73 ESTIMA ARLENE GFR IS code = 1092) sq m NOT ACCURATE CREATININE CLEARANCE IN PREDICTING GLOMERULAR FILTRATION RATE . ESTIMATED GFR I S NOT APPLICABLE FOR DIALYSIS PATIEN TS. Metal Tube Cutter ID - BSPOCT-GLUCOSE [id number] 17:48:00 Test Item Value Reference Range Interpretation Comments POC-GLUCOSE METER 113 mg/dL 70-110 H : TESTED A T [facility] 6720 ([employer]) (test code = [employer] [facility], 1538) 92761: Metal Tube Cutter/Techni aaron ID = [id number] for MARQUIS SMITH FUNGUS CULTURE + [id number] 17:33:00 Test Item Value Reference Range Interpretation Comments CULTURE (BEAKER) A Same organi sm has been (test code = isolated from 1095) cultures(s) of the same body site and collection date . Repeat identification and susceptibility testing performed only after consultation wi th the clinical microb iology laboratory. FUNGUS SMEAR No fungi seen (BEAKER) (test code = 1406) Refer to previous culture of Ana albicansPOCT-GLUCOSE [id number] 11:47:00 Test Item Value Reference Range Interpretation Comments POC-GLUCOSE METER 102 mg/dL 70-110 : TESTED A T [facility] 6720 ([place]) (test code = [facility] [employer] [facility], 1538) 28176: Metal Tube Cutter/Techni aaron ID = [id number] ST ELZA, NADA RAD, CHEST, 1 VIEW, NON [id number] 11:26:00Reason for exam:->S/p L chest tube removalFINAL [...] MDReport Verified Date/Time: 04/07/2019 11:26:55 Reading Location: [facility] Radiology Reading Room RAD, CHEST, 1 VIEW, NON [id number] 10:15:00Reason for exam:->eval pleural effusionsShould this be [...] MDReport Verified Date/Time: 04/07/2019 10:15:23 Reading Location: [facility] Radiology Reading Room 10:15 [id number] 08:15:00 Test Item Value Reference Range Interpretation Comments PHOSPHORUS (BEAKER) (test code = 3.3 mg/dL 2.3-4.7 604) Metal Tube Cutter ID - PHILIP [id number] 08:15:00 Test Item Value Reference Range Interpretation Comments MAGNESIUM (BEAKER) (test code = 2.0 mg/dL 1.6-2.6 627) Metal Tube Cutter ID - PHILIP CBASIC METABOLIC [id number] 08:15:00 Test Item Value Reference Range Interpretation Comments SODIUM (BEAKER) 151 meq/L 136-145 H (test code = 381) POTASSIUM (BEAKER) 4.1 meq/L 3.5-5.1 (test code = 379) CHLORIDE (BEAKER) 114 meq/L 98-107 H (test code = 382) CO2 (BEAKER) (test 33 meq/L 22-29 H code = 355) BLOOD UREA NITROGEN 31 mg/dL 7-21 H (BEAKER) (test code = 354) CREATININE (BEAKER) 0.80 mg/dL 0.57-1.25 (test code = 358) GLUCOSE RANDOM 77 mg/dL 70-105 (BEAKER) (test code = 652) CALCIUM (BEAKER) 8.1 mg/dL 8.4-10.2 L (test code = 697) EGFR (BEAKER) (test 97 mL/min/1.73 ESTIMA ARLENE GFR IS code = 1092) sq m NOT ACCURATE CREATININE CLEARANCE IN PREDICTING GLOMERULAR FILTRATION RATE . ESTIMATED GFR I S NOT APPLICABLE FOR DIALYSIS PATIEN TS. Metal Tube Cutter ID - FEB CCBC W/PLT COUNT & AUTO [id number] 07:40:00 Test Item Value Reference Range Interpretation Comments WHITE BLOOD CELL COUNT (BEAKER) 6.7 K/ L 3.5-10.5 (test code = 775) RED BLOOD CELL COUNT (BEAKER) 4.01 M/ L 4.63-6.08 L (test code = 761) HEMOGLOBIN (BEAKER) (test code = 10.1 GM/DL 13.7-17.5 L 410) HEMATOCRIT (BEAKER) (test code = 35.0 % 40.1-51.0 L 411) MEAN CORPUSCULAR VOLUME (BEAKER) 87.3 fL 79.0-92.2 (test code = 753) MEAN CORPUSCULAR HEMOGLOBIN 25.2 pg 25.7-32.2 L (BEAKER) (test code = 751) MEAN CORPUSCULAR HEMOGLOBIN CONC 28.9 GM/DL 32.3-36.5 L (BEAKER) (test code = 752) RED CELL DISTRIBUTION WIDTH 26.0 % 11.6-14.4 H (BEAKER) (test code = 412) PLATELET COUNT (BEAKER) (test 209 K/CU MM 150-450 code = 756) MEAN PLATELET VOLUME (BEAKER) 12.0 fL 9.4-12.4 (test code = 754) NUCLEATED RED BLOOD CELLS 0 /100 WBC 0-0 (BEAKER) (test code = 413) NEUTROPHILS RELATIVE PERCENT 45 % (BEAKER) (test code = 429) LYMPHOCYTES RELATIVE PERCENT 31 % (BEAKER) (test code = 430) MONOCYTES RELATIVE PERCENT 15 % (BEAKER) (test code = 431) EOSINOPHILS RELATIVE PERCENT 8 % (BEAKER) (test code = 432) BASOPHILS RELATIVE PERCENT 1 % (BEAKER) (test code = 437) NEUTROPHILS ABSOLUTE COUNT 3.00 K/ L 1.78-5.38 (BEAKER) (test code = 670) LYMPHOCYTES ABSOLUTE COUNT 2.08 K/ L 1.32-3.57 (BEAKER) (test code = 414) MONOCYTES ABSOLUTE COUNT (BEAKER) 0.98 K/ L 0.30-0.82 H (test code = 415) EOSINOPHILS ABSOLUTE COUNT 0.55 K/ L 0.04-0.54 H (BEAKER) (test code = 416) BASOPHILS ABSOLUTE COUNT (BEAKER) 0.03 K/ L 0.01-0.08 (test code = 417) IMMATURE GRANULOCYTES-RELATIVE 0 % 0-1 PERCENT (BEAKER) (test code = 2801) POCT-GLUCOSE [id number] 06:50:00 Test Item Value Reference Range Interpretation Comments POC-GLUCOSE METER 92 mg/dL 70-110 : TESTED A T [facility] 6720 (BEAKER) (test code = [facility], 153) 75535: Metal Tube Cutter/Techni aaron ID = [id number] for MORENITA KUMAR, ELIAZAR POCT-GLUCOSE [id number] 00:17:00 Test Item Value Reference Range Interpretation Comments POC-GLUCOSE METER 109 mg/dL 70-110 : TESTED A T [facility] 6720 (BEAKER) (test code = [facility], 1538) 14431: Metal Tube Cutter/Techni aaron ID = [id number] for CHASEAmi, ELIAZAR POCT-GLUCOSE [id number] 18:05:00 Test Item Value Reference Range Interpretation Comments POC-GLUCOSE METER 100 mg/dL 70-110 : TESTED A T [facility] 6720 (BEAKER) (test code = [facility], 1538) 19486: Metal Tube Cutter/Techni aaron ID = [id number] for RICARDO KEMP POCT-GLUCOSE [id number] 18:05:00 Test Item Value Reference Range Interpretation Comments POC-GLUCOSE METER 90 mg/dL 70-110 : TESTED A T [facility] 6720 (BEAKER) (test code = [facility] [place], 1538) 03631: Metal Tube Cutter/Techni aaron ID = [id number] for EVANS MYERS BASIC METABOLIC [id number] 17:33:00 Test Item Value Reference Range Interpretation Comments SODIUM (BEAKER) 151 meq/L 136-145 H (test code = 381) POTASSIUM (BEAKER) 3.3 meq/L 3.5-5.1 L (test code = 379) CHLORIDE (BEAKER) 112 meq/L 98-107 H (test code = 382) CO2 (BEAKER) (test 36 meq/L 22-29 H code = 355) BLOOD UREA NITROGEN 30 mg/dL 7-21 H (BEAKER) (test code = 354) CREATININE (BEAKER) 0.85 mg/dL 0.57-1.25 (test code = 358) GLUCOSE RANDOM 102 mg/dL 70-105 (BEAKER) (test code = 652) CALCIUM (BEAKER) 8.0 mg/dL 8.4-10.2 L (test code = 697) EGFR (BEAKER) (test 91 mL/min/1.73 ESTIMA ARLENE GFR IS code = 1092) sq m NOT ACCURATE CREATININE CLEARANCE IN PREDICTING GLOMERULAR FILTRATION RATE . ESTIMATED GFR I S NOT APPLICABLE FOR DIALYSIS PATIEN TS. Metal Tube Cutter ID - ALMA STEPHEN, CHEST, 1 VIEW, NON [id number] 08:21:00Reason for exam:->eval pleural effusionsShould this be [...] are unchanged. IMPRESSION:No significant interval change. Signed: Meservy, Simran MDReport Verified Date/Time: 04/06/2019 08:21:47 [id number] 07:38:00 Test Item Value Reference Range Interpretation Comments PHOSPHORUS (BEAKER) (test code = 3.7 mg/dL 2.3-4.7 604) Metal Tube Cutter ID Sultana SONIA [id number] 07:38:00 Test Item Value Reference Range Interpretation Comments MAGNESIUM (BEAKER) (test code = 2.1 mg/dL 1.6-2.6 627) Metal Tube Cutter ID - SONIA FBASIC METABOLIC [id number] 07:38:00 Test Item Value Reference Range Interpretation Comments SODIUM (BEAKER) 150 meq/L 136-145 H (test code = 381) POTASSIUM (BEAKER) 3.6 meq/L 3.5-5.1 (test code = 379) CHLORIDE (BEAKER) 114 meq/L 98-107 H (test code = 382) CO2 (BEAKER) (test 32 meq/L 22-29 H code = 355) BLOOD UREA NITROGEN 31 mg/dL 7-21 H (BEAKER) (test code = 354) CREATININE (BEAKER) 0.88 mg/dL 0.57-1.25 (test code = 358) GLUCOSE RANDOM 88 mg/dL 70-105 (BEAKER) (test code = 652) CALCIUM (BEAKER) 8.1 mg/dL 8.4-10.2 L (test code = 697) EGFR (BEAKER) (test 87 mL/min/1.73 ESTIMA ARLENE GFR IS code = 1092) sq m NOT ACCURATE CREATININE CLEARANCE IN PREDICTING GLOMERULAR FILTRATION RATE . ESTIMATED GFR I S NOT APPLICABLE FOR DIALYSIS PATIEN TS. Metal Tube [employer]utter ID [employer] SONIA FCBC W/PLT COUNT & AUTO [id number] 07:35:00 Test Item Value Reference Range Interpretation Comments WHITE BLOOD CELL COUNT (BEAKER) 7.0 K/ L 3.5-10.5 (test code = 775) RED BLOOD CELL COUNT (BEAKER) 3.98 M/ L 4.63-6.08 L (test code = 761) HEMOGLOBIN (BEAKER) (test code = 9.9 GM/DL 13.7-17.5 L 410) HEMATOCRIT (BEAKER) (test code = 34.3 % 40.1-51.0 L 411) MEAN CORPUSCULAR VOLUME (BEAKER) 86.2 fL 79.0-92.2 (test code = 753) MEAN CORPUSCULAR HEMOGLOBIN 24.9 pg 25.7-32.2 L (BEAKER) (test code = 751) MEAN CORPUSCULAR HEMOGLOBIN CONC 28.9 GM/DL 32.3-36.5 L (BEAKER) (test code = 752) RED CELL DISTRIBUTION WIDTH 26.5 % 11.6-14.4 H (BEAKER) (test code = 412) PLATELET COUNT (BEAKER) (test 212 K/CU MM 150-450 code = 756) MEAN PLATELET VOLUME (BEAKER) 11.4 fL 9.4-12.4 (test code = 754) NUCLEATED RED BLOOD CELLS 0 /100 WBC 0-0 (BEAKER) (test code = 413) NEUTROPHILS RELATIVE PERCENT 49 % (BEAKER) (test code = 429) LYMPHOCYTES RELATIVE PERCENT 31 % (BEAKER) (test code = 430) MONOCYTES RELATIVE PERCENT 12 % (BEAKER) (test code = 431) EOSINOPHILS RELATIVE PERCENT 8 % (BEAKER) (test code = 432) BASOPHILS RELATIVE PERCENT 0 % (BEAKER) (test code = 437) NEUTROPHILS ABSOLUTE COUNT 3.41 K/ L 1.78-5.38 (BEAKER) (test code = 670) LYMPHOCYTES ABSOLUTE COUNT 2.14 K/ L 1.32-3.57 (BEAKER) (test code = 414) MONOCYTES ABSOLUTE COUNT (BEAKER) 0.86 K/ L 0.30-0.82 H (test code = 415) EOSINOPHILS ABSOLUTE COUNT 0.53 K/ L 0.04-0.54 (BEAKER) (test code = 416) BASOPHILS ABSOLUTE COUNT (BEAKER) 0.02 K/ L 0.01-0.08 (test code = 417) IMMATURE GRANULOCYTES-RELATIVE 0 % 0-1 PERCENT (BEAKER) (test code = 2801) POCT-GLUCOSE [id number] 05:27:00 Test Item Value Reference Range Interpretation Comments POC-GLUCOSE METER 89 mg/dL 70-110 : TESTED A T [facility] (BEAKER) (test code = ILDA [place], 1538) [id number]: Metal Tube Cutter/Techni aaron ID = [id number] for CANDIDO LEMUS BAS[employer] METABOLIC [id number] 17:09:00 Test Item Value Reference Range Interpretation Comments SODIUM (BEAKER) 152 meq/L 136-145 H (test code = 381) POTASSIUM (BEAKER) 3.5 meq/L 3.5-5.1 (test code = 379) CHLORIDE (BEAKER) 114 meq/L 98-107 H (test code = 382) CO2 (BEAKER) (test 34 meq/L 22-29 H code = 355) BLOOD UREA NITROGEN 32 mg/dL 7-21 H (BEAKER) (test code = 354) CREATININE (BEAKER) 0.79 mg/dL 0.57-1.25 (test code = 358) GLUCOSE RANDOM 85 mg/dL 70-105 (BEAKER) (test code = 652) CALCIUM (BEAKER) 8.1 mg/dL 8.4-10.2 L (test code = 697) EGFR (BEAKER) (test 99 mL/min/1.73 ESTIMA ARLENE GFR IS code = 1092) sq m NOT ACCURATE CREATININE CLEARANCE IN PREDICTING GLOMERULAR FILTRATION RATE . ESTIMATED GFR I S NOT APPLICABLE FOR DIALYSIS PATIEN TS. Metal Tube Cutter ID - ELISSA MPOCT-GLUCOSE [id number] 11:34:00 Test Item Value Reference Range Interpretation Comments POC-GLUCOSE METER 104 mg/dL 70-110 : TESTED A T [facility] (BEAKER) (test code = ILDA Calvert [facility], 1538) [id number]: Metal Tube Cutter/Techni aaron ID = [id number] for JIGNA ALEJANDRE [employer] MET[employer] [id number] 05:51:00 Test Item Value Reference Range Interpretation Comments SODIUM (BEAKER) 150 meq/L 136-145 H (test code = 381) POTASSIUM (BEAKER) 3.5 meq/L 3.5-5.1 (test code = 379) CHLORIDE (BEAKER) 115 meq/L 98-107 H (test code = 382) CO2 (BEAKER) (test 31 meq/L 22-29 H code = 355) BLOOD UREA NITROGEN 35 mg/dL 7-21 H (BEAKER) (test code = 354) CREATININE (BEAKER) 0.78 mg/dL 0.57-1.25 (test code = 358) GLUCOSE RANDOM 86 mg/dL 70-105 (BEAKER) (test code = 652) CALCIUM (BEAKER) 7.9 mg/dL 8.4-10.2 L (test code = 697) EGFR (BEAKER) (test 100 mL/min/1.73 ESTIM ATED GFR IS code = 1092) sq m NOT ACCURATE CREATININE CLEARANCE IN PREDICTING GLOMERULAR FILTRATION RATE . ESTIMATED GFR I S NOT APPLICABLE FOR DIALYSIS PATIEN TS. Metal Tube Cutter ID - ELISSA [id number] 05:43:00 Test Item Value Reference Range Interpretation Comments PHOSPHORUS (BEAKER) (test code = 3.5 mg/dL 2.3-4.7 604) Metal Tube Cutter ID - ELISSA [id number] 05:43:00 Test Item Value Reference Range Interpretation Comments MAGNESIUM (BEAKER) (test code = 1.9 mg/dL 1.6-2.6 627) Metal Tube Cutter ID - ELISSA MCBC W/PLT COUNT & AUTO [id number] 05:28:00 Test Item Value Reference Range Interpretation Comments WHITE BLOOD CELL COUNT (BEAKER) 7.7 K/ L 3.5-10.5 (test code = 775) RED BLOOD CELL COUNT (BEAKER) 3.54 M/ L 4.63-6.08 L (test code = 761) HEMOGLOBIN (BEAKER) (test code = 9.1 GM/DL 13.7-17.5 L 410) HEMATOCRIT (BEAKER) (test code = 29.8 % 40.1-51.0 L 411) MEAN CORPUSCULAR VOLUME (BEAKER) 84.2 fL 79.0-92.2 (test code = 753) MEAN CORPUSCULAR HEMOGLOBIN 25.7 pg 25.7-32.2 (BEAKER) (test code = 751) MEAN CORPUSCULAR HEMOGLOBIN CONC 30.5 GM/DL 32.3-36.5 L (BEAKER) (test code = 752) RED CELL DISTRIBUTION WIDTH 26.5 % 11.6-14.4 H (BEAKER) (test code = 412) PLATELET COUNT (BEAKER) (test 196 K/CU MM 150-450 code = 756) MEAN PLATELET VOLUME (BEAKER) 11.5 fL 9.4-12.4 (test code = 754) NUCLEATED RED BLOOD CELLS 0 /100 WBC 0-0 (BEAKER) (test code = 413) NEUTROPHILS RELATIVE PERCENT 58 % (BEAKER) (test code = 429) LYMPHOCYTES RELATIVE PERCENT 22 % (BEAKER) (test code = 430) MONOCYTES RELATIVE PERCENT 12 % (BEAKER) (test code = 431) EOSINOPHILS RELATIVE PERCENT 7 % (BEAKER) (test code = 432) BASOPHILS RELATIVE PERCENT 0 % (BEAKER) (test code = 437) NEUTROPHILS ABSOLUTE COUNT 4.49 K/ L 1.78-5.38 (BEAKER) (test code = 670) LYMPHOCYTES ABSOLUTE COUNT 1.71 K/ L 1.32-3.57 (BEAKER) (test code = 414) MONOCYTES ABSOLUTE COUNT (BEAKER) 0.93 K/ L 0.30-0.82 H (test code = 415) EOSINOPHILS ABSOLUTE COUNT 0.53 K/ L 0.04-0.54 (BEAKER) (test code = 416) BASOPHILS ABSOLUTE COUNT (BEAKER) 0.02 K/ L 0.01-0.08 (test code = 417) IMMATURE GRANULOCYTES-RELATIVE 0 % 0-1 PERCENT (BEAKER) (test code = 2801) RAD, CHEST, 1 VIEW, NON [id number] 04:46:00Reason for exam:->eval pleural effusionsShould this be [...] contours. Additional findings: None. Signed: Rashad Stiles Verified Date/Time: 04/05/2019 04:46:52 POCT-GLUCOSE [id number] 23:55:00 Test Item Value Reference Range Interpretation Comments POC-GLUCOSE METER 103 mg/dL 70-110 : TESTED A T [facility] (BEAKER) (test code [facility], = 1538) [address]: Metal Tube Cutter/Techni aaron ID = [id number] for JACKSON BOLDEN FUNGUS CULTURE + [id number] 18:09:00 Test Item Value Reference Range Interpretation Comments CULTURE (BEAKER) A 2+ Ana albicans (test code = 1095) FUNGUS SMEAR No fungi seen (BEAKER) (test code = 1406) RAD, ABDOMEN/KUB, 1 VIEW [id number] 18:03:00Reason for exam:->TFFINAL REPORT Abdomen date 04/04/2019 Comment: Frontal view of the abdomen demonstrates a feeding tube present with tip noted in the descending duodenum. Signed: Tomasa Foss MDReport Verified Date/Time: 04/04/2019 18:03:16 Reading Location: [address] Consult Reading Room POCT-GLUCOSE [id number] 17:54:00 Test Item Value Reference Range Interpretation Comments POC-GLUCOSE METER 82 mg/dL 70-110 : TESTED A T [facility] 6720 (BEAKER) (test code = ILDA Calvert [facility], 1538) 16[address]: Metal Tube Cutter/Techni aaron ID = [id number] for ISABELA LE BASIC METABOLIC [id number] 17:40:00 Test Item Value Reference Range Interpretation Comments SODIUM (BEAKER) 149 meq/L 136-145 H (test code = 381) POTASSIUM (BEAKER) 3.6 meq/L 3.5-5.1 Specimen slightly (test code = 379) hemolyzed CHLORIDE (BEAKER) 112 meq/L 98-107 H (test code = 382) CO2 (BEAKER) (test 30 meq/L 22-29 H code = 355) BLOOD UREA NITROGEN 38 mg/dL 7-21 H (BEAKER) (test code = 354) CREATININE (BEAKER) 0.95 mg/dL 0.57-1.25 Specimen slightly (test code = 358) hemolyzed GLUCOSE RANDOM 90 mg/dL 70-105 (BEAKER) (test code = 652) CALCIUM (BEAKER) 8.2 mg/dL 8.4-10.2 L (test code = 697) EGFR (BEAKER) (test 80 mL/min/1.73 ESTIMA ARLENE GFR IS code = 1092) sq m NOT ACCURATE CREATININE CLEARANCE IN PREDICTING GLOMERULAR FILTRATION RATE . ESTIMATED GFR I S NOT APPLICABLE FOR DIALYSIS PATIEN TS. Metal Tube Cutter ID - BSRAD, ABDOMEN/KUB, 1 VIEW [id number] 15:46:00Reason for exam:- >korpak placementFINAL REPORT RAD, [...] Garcia Verified Date/Time: 04/04/2019 15:46:45 Reading Location: [facility] Radiology Reading Room POCT-GLUCOSE [id number] 12:21:00 Test Item Value Reference Range Interpretation Comments POC-GLUCOSE METER 94 mg/dL 70-110 : TESTED [facility] T [facility] (test code = [place], 1538) 40912: Metal Tube Cutter/Techni aaron ID = [id number] for SAND ERS, ISABELA RAD, CHEST, 1 VIEW, NON [id number] 08:56:00Reason for exam:->eval pleural effusion, CT in [...] Infante Verified Date/Time: 04/04/2019 08:56:32 Reading Location: [facility] Radiology Reading Room CBC W/PLT COUNT & AUTO DIFFERENTIAL 2019-04-04 06:20:00 Test Item Value Reference Range Interpretation Comments WHITE BLOOD CELL COUNT (BEAKER) 9.9 K/ L 3.5-10.5 (test code = 775) RED BLOOD CELL COUNT (BEAKER) 3.87 M/ L 4.63-6.08 L (test code = 761) HEMOGLOBIN (BEAKER) (test code = 9.7 GM/DL 13.7-17.5 L 410) HEMATOCRIT (BEAKER) (test code = 32.8 % 40.1-51.0 L 411) MEAN CORPUSCULAR VOLUME (BEAKER) 84.8 fL 79.0-92.2 (test code = 753) MEAN CORPUSCULAR HEMOGLOBIN 25.1 pg 25.7-32.2 L (BEAKER) (test code = 751) MEAN CORPUSCULAR HEMOGLOBIN CONC 29.6 GM/DL 32.3-36.5 L (BEAKER) (test code = 752) RED CELL DISTRIBUTION WIDTH 26.1 % 11.6-14.4 H (BEAKER) (test code = 412) PLATELET COUNT (BEAKER) (test 240 K/CU MM 150-450 code = 756) MEAN PLATELET VOLUME (BEAKER) 12.4 fL 9.4-12.4 (test code = 754) NUCLEATED RED BLOOD CELLS 0 /100 WBC 0-0 (BEAKER) (test code = 413) NEUTROPHILS RELATIVE PERCENT 65 % (BEAKER) (test code = 429) LYMPHOCYTES RELATIVE PERCENT 18 % (BEAKER) (test code = 430) MONOCYTES RELATIVE PERCENT 10 % (BEAKER) (test code = 431) EOSINOPHILS RELATIVE PERCENT 7 % (BEAKER) (test code = 432) BASOPHILS RELATIVE PERCENT 0 % (BEAKER) (test code = 437) NEUTROPHILS ABSOLUTE COUNT 6.40 K/ L 1.78-5.38 H (BEAKER) (test code = 670) LYMPHOCYTES ABSOLUTE COUNT 1.80 K/ L 1.32-3.57 (BEAKER) (test code = 414) MONOCYTES ABSOLUTE COUNT (BEAKER) 1.00 K/ L 0.30-0.82 H (test code = 415) EOSINOPHILS ABSOLUTE COUNT 0.65 K/ L 0.04-0.54 H (BEAKER) (test code = 416) BASOPHILS ABSOLUTE COUNT (BEAKER) 0.03 K/ L 0.01-0.08 (test code = 417) IMMATURE GRANULOCYTES-RELATIVE 0 % 0-1 PERCENT (BEAKER) (test code = 2801) POCT-GLUCOSE [id number] 05:41:00 Test Item Value Reference Range Interpretation Comments POC-GLUCOSE METER 107 mg/dL 70-110 : TESTED A T [facility] (BEAKER) (test code = IL[place], 1538) [address]87[address]: Metal Tube Cutter/Techni aaron ID = [id number] for EDISON BELTRAN [id number] 05:17:00 Test Item Value Reference Range Interpretation Comments PHOSPHORUS (BEAKER) (test code = 4.2 mg/dL 2.3-4.7 604) Metal Tube Cutter ID - ELISSA [id number] 05:17:00 Test Item Value Reference Range Interpretation Comments MAGNESIUM (BEAKER) (test code = 1.9 mg/dL 1.6-2.6 627) Metal Tube Cutter ID - ELISSA MBASIC METABOLIC [id number] 05:17:00 Test Item Value Reference Range Interpretation Comments SODIUM (BEAKER) 148 meq/L 136-145 H (test code = 381) POTASSIUM (BEAKER) 4.1 meq/L 3.5-5.1 (test code = 379) CHLORIDE (BEAKER) 115 meq/L 98-107 H (test code = 382) CO2 (BEAKER) (test 32 meq/L 22-29 H code = 355) BLOOD UREA NITROGEN 39 mg/dL 7-21 H (BEAKER) (test code = 354) CREATININE (BEAKER) 0.90 mg/dL 0.57-1.25 (test code = 358) GLUCOSE RANDOM 121 mg/dL 70-105 H (BEAKER) (test code = 652) CALCIUM (BEAKER) 8.2 mg/dL 8.4-10.2 L (test code = 697) EGFR (BEAKER) (test 85 mL/min/1.73 ESTIMA ARLENE GFR IS code = 1092) sq m NOT ACCURATE CREATININE CLEARANCE IN PREDICTING GLOMERULAR FILTRATION RATE . ESTIMATED GFR I S NOT APPLICABLE FOR DIALYSIS PATIEN TS. Metal Tube Cutter ID - ELISSA MPOCT-GLUCOSE [id number] 00:06:00 Test Item Value Reference Range Interpretation Comments POC-GLUCOSE METER 109 mg/dL 70-110 : TESTED A T [facility] 6720 (BEAKER) (test code = [facility], 1538) 54724: Metal Tube Cutter/Techni aaron ID = [id number] for EDISON BELTRAN [id number] 20:00:00 Test Item Value Reference Range Interpretation Comments MAGNESIUM (BEAKER) 1.9 mg/dL 1.6-2.6 Specimen slightly (test code = 627) hemolyzed Metal Tube Cutter ID - BSPOCT-GLUCOSE [id number] 17:14:00 Test Item Value Reference Range Interpretation Comments POC-GLUCOSE METER 114 mg/dL 70-110 H : TESTED A T [facility] 6720 (BEAKER) (test code = [facility], 1538) 61144: Metal Tube Cutter/Techni aaron ID = [id number] for COLLIN ESCOBAR BASIC METABOLIC [id number] 16:17:00 Test Item Value Reference Range Interpretation Comments SODIUM (BEAKER) 149 meq/L 136-145 H (test code = 381) POTASSIUM (BEAKER) 4.0 meq/L 3.5-5.1 Specimen slightly (test code = 379) hemolyzed CHLORIDE (BEAKER) 114 meq/L 98-107 H (test code = 382) CO2 (BEAKER) (test 32 meq/L 22-29 H code = 355) BLOOD UREA NITROGEN 40 mg/dL 7-21 H (BEAKER) (test code = 354) CREATININE (BEAKER) 0.91 mg/dL 0.57-1.25 Specimen slightly (test code = 358) hemolyzed GLUCOSE RANDOM 107 mg/dL 70-105 H (BEAKER) (test code = 652) CALCIUM (BEAKER) 8.3 mg/dL 8.4-10.2 L (test code = 697) EGFR (BEAKER) (test 84 mL/min/1.73 ESTIMA ARLENE GFR IS code = 1092) sq m NOT ACCURATE CREATININE CLEARANCE IN PREDICTING GLOMERULAR FILTRATION RATE . ESTIMATED GFR I S NOT APPLICABLE FOR DIALYSIS PATIEN TS. Metal Tube Cutter ID - BSPOCT-GLUCOSE [id number] 12:20:00 Test Item Value Reference Range Interpretation Comments POC-GLUCOSE METER 108 mg/dL 70-110 : TESTED A T [facility] 6720 (BEAKER) (test code = ILDA Calvert [place], 1538) 095[address]: Metal Tube Cutter/Techni aaron ID = [id number] for STEFANI FARMER POCT-GLUCOSE [id number] 06:08:00 Test Item Value Reference Range Interpretation Comments POC-GLUCOSE METER 96 mg/dL 70-110 : TESTED A T [facility] 6720 (BEAKER) (test code = ILDA Calvert [facility], 1538) 86552: Metal Tube Cutter/Techni aaron ID = [id number] for SUGU ANNMOL RAD, CHEST, 1 VIEW, NON [id number] 05:49:00Reason for exam:->chest tubesShould this be performed [...] effusions. There is no pneumothorax. Signed: Nakia Goldstein MDRepk[facility] Verified Date/Time: 04/03/2019 05:49:51 [id number] 02:46:00 Test Item Value Reference Range Interpretation Comments PHOSPHORUS (BEAKER) (test code = 3.1 mg/dL 2.3-4.7 604) Metal Tube Cutter ID - SANDRA [id number] 02:46:00 Test Item Value Reference Range Interpretation Comments MAGNESIUM (BEAKER) (test code = 1.8 mg/dL 1.6-2.6 627) Metal Tube Cutter ID - SANDRA WBASIC METABOLIC [id number] 02:46:00 Test Item Value Reference Range Interpretation Comments SODIUM (BEAKER) 148 meq/L 136-145 H (test code = 381) POTASSIUM (BEAKER) 3.3 meq/L 3.5-5.1 L (test code = 379) CHLORIDE (BEAKER) 114 meq/L 98-107 H (test code = 382) CO2 (BEAKER) (test 32 meq/L 22-29 H code = 355) BLOOD UREA NITROGEN 42 mg/dL 7-21 H (BEAKER) (test code = 354) CREATININE (BEAKER) 0.87 mg/dL 0.57-1.25 (test code = 358) GLUCOSE RANDOM 107 mg/dL 70-105 H (BEAKER) (test code = 652) CALCIUM (BEAKER) 8.3 mg/dL 8.4-10.2 L (test code = 697) EGFR (BEAKER) (test 88 mL/min/1.73 ESTIMA ARLENE GFR IS code = 1092) sq m NOT ACCURATE CREATININE CLEARANCE IN PREDICTING GLOMERULAR FILTRATION RATE . ESTIMATED GFR I S NOT APPLICABLE FOR DIALYSIS PATIEN TS. Metal Tube Cutter ID - SANDRA WCBC W/PLT COUNT & AUTO [id number] 02:35:00 Test Item Value Reference Range Interpretation Comments WHITE BLOOD CELL COUNT (BEAKER) 10.4 K/ L 3.5-10.5 (test code = 775) RED BLOOD CELL COUNT (BEAKER) 3.64 M/ L 4.63-6.08 L (test code = 761) HEMOGLOBIN (BEAKER) (test code = 9.1 GM/DL 13.7-17.5 L 410) HEMATOCRIT (BEAKER) (test code = 29.6 % 40.1-51.0 L 411) MEAN CORPUSCULAR VOLUME (BEAKER) 81.3 fL 79.0-92.2 (test code = 753) MEAN CORPUSCULAR HEMOGLOBIN 25.0 pg 25.7-32.2 L (BEAKER) (test code = 751) MEAN CORPUSCULAR HEMOGLOBIN CONC 30.7 GM/DL 32.3-36.5 L (BEAKER) (test code = 752) RED CELL DISTRIBUTION WIDTH 25.7 % 11.6-14.4 H (BEAKER) (test code = 412) PLATELET COUNT (BEAKER) (test 220 K/CU MM 150-450 code = 756) MEAN PLATELET VOLUME (BEAKER) 12.2 fL 9.4-12.4 (test code = 754) NUCLEATED RED BLOOD CELLS 0 /100 WBC 0-0 (BEAKER) (test code = 413) NEUTROPHILS RELATIVE PERCENT 64 % (BEAKER) (test code = 429) LYMPHOCYTES RELATIVE PERCENT 19 % (BEAKER) (test code = 430) MONOCYTES RELATIVE PERCENT 10 % (BEAKER) (test code = 431) EOSINOPHILS RELATIVE PERCENT 6 % (BEAKER) (test code = 432) BASOPHILS RELATIVE PERCENT 0 % (BEAKER) (test code = 437) NEUTROPHILS ABSOLUTE COUNT 6.67 K/ L 1.78-5.38 H (BEAKER) (test code = 670) LYMPHOCYTES ABSOLUTE COUNT 1.95 K/ L 1.32-3.57 (BEAKER) (test code = 414) MONOCYTES ABSOLUTE COUNT (BEAKER) 1.05 K/ L 0.30-0.82 H (test code = 415) EOSINOPHILS ABSOLUTE COUNT 0.63 K/ L 0.04-0.54 H (BEAKER) (test code = 416) BASOPHILS ABSOLUTE COUNT (BEAKER) 0.04 K/ L 0.01-0.08 (test code = 417) IMMATURE GRANULOCYTES-RELATIVE 0 % 0-1 PERCENT (BEAKER) (test code = 2801) POCT-GLUCOSE [id number] 00:12:00 Test Item Value Reference Range Interpretation Comments POC-GLUCOSE METER 87 mg/dL 70-110 : TESTED A T [facility] (BEAKER) (test code = DOROTAJAVI Calvert [facility], 1538) 12354: Metal Tube Cutter/Techni aaron ID = [id number] for SUGU , SHEENAMOL [id number] 23:01:00 Test Item Value Reference Range Interpretation Comments PARTIAL THROMBOPLASTIN TIME 88.0 seconds 22.5-36.0 H (BEAKER) (test code = 760) BASIC METABOLIC [id number] 18:04:00 Test Item Value Reference Range Interpretation Comments SODIUM (BEAKER) 146 meq/L 136-145 H (test code = 381) POTASSIUM (BEAKER) 4.5 meq/L 3.5-5.1 Specimen slightly (test code = 379) hemolyzed CHLORIDE (BEAKER) 113 meq/L 98-107 H (test code = 382) CO2 (BEAKER) (test 26 meq/L 22-29 code = 355) BLOOD UREA NITROGEN 43 mg/dL 7-21 H (BEAKER) (test code = 354) CREATININE (BEAKER) 1.01 mg/dL 0.57-1.25 Specimen slightly (test code = 358) hemolyzed GLUCOSE RANDOM 93 mg/dL 70-105 (BEAKER) (test code = 652) CALCIUM (BEAKER) 8.7 mg/dL 8.4-10.2 (test code = 697) EGFR (BEAKER) (test 74 mL/min/1.73 ESTIMA ARLENE GFR IS code = 1092) sq m NOT ACCURATE CREATININE CLEARANCE IN PREDICTING GLOMERULAR FILTRATION RATE . ESTIMATED GFR I S NOT APPLICABLE FOR DIALYSIS PATIEN TS. Metal Tube Cutter ID - [id number] 17:41:00 Test Item Value Reference Range Interpretation Comments PARTIAL THROMBOPLASTIN TIME 75.2 seconds 22.5-36.0 H (BEAKER) (test code = 760) POCT-GLUCOSE [id number] 17:38:00 Test Item Value Reference Range Interpretation Comments POC-GLUCOSE METER 100 mg/dL 70-110 : TESTED A T [facility] 6720 ([facility]) (test code = [facility], 1538) 83721: Metal Tube Cutter/Techni aaron ID = [id number] for [place] ELADIA DICKENS POCT-GLUCOSE [id number] 12:31:00 Test Item Value Reference Range Interpretation Comments POC-GLUCOSE METER 88 mg/dL 70-110 : TESTED A T [facility] 6720 ([facility]) (test code = [facility], 1538) 50779: Metal Tube Cutter/Techni aaron ID = [id number] for WILL IAMS, ELADIA RAD, CHEST, 1 VIEW, NON [id number] 09:47:00Reason for exam:->naShould this be performed at the bedside?->YesFINAL REPORT Comparison: 04/01/2019 TECHNIQUE: Single view of the chest FINDINGS: Patchy interstitial opacities and small pleural effusions, right greater than left are stable. No gross pneumothorax. Interval removal of right internal jugular central line. Remaining support lines and tubes are stable. Signed: Aiden Willett MDReport Verified Date/Time: 04/02/2019 09:47:11 Reading Location: [facility] Radiology Reading Room 09:47 [id number] 08:29:00 Test Item Value Reference Range Interpretation Comments PARTIAL THROMBOPLASTIN TIME 41.5 seconds 22.5-36.0 H (BEAKER) (test code = 760) POCT-GLUCOSE [id number] 05:53:00 Test Item Value Reference Range Interpretation Comments POC-GLUCOSE METER 96 mg/dL 70-110 : TESTED A T [facility] (BEAKER) (test code = [place], 1538) 838[address]: Metal Tube Cutter/Techni aaron ID = [id number] for SUGU , SHEENAMOL [id number] 02:06:00 Test Item Value Reference Range Interpretation Comments PARTIAL THROMBOPLASTIN TIME 75.8 seconds 22.5-36.0 H (BEAKER) (test code = 760) [id number] 01:58:00 Test Item Value Reference Range Interpretation Comments PHOSPHORUS (BEAKER) (test code = 3.3 mg/dL 2.3-4.7 604) Metal Tube Cutter ID - [id number] 01:58:00 Test Item Value Reference Range Interpretation Comments MAGNESIUM (BEAKER) (test code = 1.8 mg/dL 1.6-2.6 627) Metal Tube Cutter ID - ASBASIC METABOLIC [id number] 01:58:00 Test Item Value Reference Range Interpretation Comments SODIUM (BEAKER) 146 meq/L 136-145 H (test code = 381) POTASSIUM (BEAKER) 3.3 meq/L 3.5-5.1 L (test code = 379) CHLORIDE (BEAKER) 112 meq/L 98-107 H (test code = 382) CO2 (BEAKER) (test 28 meq/L 22-29 code = 355) BLOOD UREA NITROGEN 54 mg/dL 7-21 H (BEAKER) (test code = 354) CREATININE (BEAKER) 0.95 mg/dL 0.57-1.25 (test code = 358) GLUCOSE RANDOM 101 mg/dL 70-105 (BEAKER) (test code = 652) CALCIUM (BEAKER) 8.2 mg/dL 8.4-10.2 L (test code = 697) EGFR (BEAKER) (test 80 mL/min/1.73 ESTIMA ARLENE GFR IS code = 1092) sq m NOT ACCURATE CREATININE CLEARANCE IN PREDICTING GLOMERULAR FILTRATION RATE . ESTIMATED GFR I S NOT APPLICABLE FOR DIALYSIS PATIEN TS. Metal Tube Cutter ID - ASBLOOD GAS, [id number] 01:35:00 Test Item Value Reference Range Interpretation Comments PH ARTERIAL (BEAKER) (test code = 7.56 7.35-7.45 H 383) PCO2 ARTERIAL (BEAKER) (test code 35 mmHg 35-45 = 384) PO2 ARTERIAL (BEAKER) (test code = 90 mmHg 80-90 385) O2 SATURATION ARTERIAL (BEAKER) 97.9 % 96.0-97.0 H (test code = 386) HCO3 ARTERIAL (BEAKER) (test code 31 mmol/L 21-29 H = 388) BASE EXCESS ARTERIAL (BEAKER) 7.7 mmol/L -2.0-3.0 H (test code = 387) PATIENT TEMPERATURE (BEAKER) (test 36.4 C code = 1818) FIO2 (BEAKER) (test code = 1819) 21.0 % CBC W/PLT COUNT & AUTO [id number] 01:35:00 Test Item Value Reference Range Interpretation Comments WHITE BLOOD CELL COUNT (BEAKER) 12.2 K/ L 3.5-10.5 H (test code = 775) RED BLOOD CELL COUNT (BEAKER) 3.47 M/ L 4.63-6.08 L (test code = 761) HEMOGLOBIN (BEAKER) (test code = 8.9 GM/DL 13.7-17.5 L 410) HEMATOCRIT (BEAKER) (test code = 28.2 % 40.1-51.0 L 411) MEAN CORPUSCULAR VOLUME (BEAKER) 81.3 fL 79.0-92.2 (test code = 753) MEAN CORPUSCULAR HEMOGLOBIN 25.6 pg 25.7-32.2 L (BEAKER) (test code = 751) MEAN CORPUSCULAR HEMOGLOBIN CONC 31.6 GM/DL 32.3-36.5 L (BEAKER) (test code = 752) RED CELL DISTRIBUTION WIDTH 26.0 % 11.6-14.4 H (BEAKER) (test code = 412) PLATELET COUNT (BEAKER) (test 218 K/CU MM 150-450 code = 756) MEAN PLATELET VOLUME (BEAKER) 12.4 fL 9.4-12.4 (test code = 754) NUCLEATED RED BLOOD CELLS 0 /100 WBC 0-0 (BEAKER) (test code = 413) NEUTROPHILS RELATIVE PERCENT 65 % (BEAKER) (test code = 429) LYMPHOCYTES RELATIVE PERCENT 19 % (BEAKER) (test code = 430) MONOCYTES RELATIVE PERCENT 9 % (BEAKER) (test code = 431) EOSINOPHILS RELATIVE PERCENT 6 % (BEAKER) (test code = 432) BASOPHILS RELATIVE PERCENT 0 % (BEAKER) (test code = 437) NEUTROPHILS ABSOLUTE COUNT 7.89 K/ L 1.78-5.38 H (BEAKER) (test code = 670) LYMPHOCYTES ABSOLUTE COUNT 2.30 K/ L 1.32-3.57 (BEAKER) (test code = 414) MONOCYTES ABSOLUTE COUNT (BEAKER) 1.13 K/ L 0.30-0.82 H (test code = 415) EOSINOPHILS ABSOLUTE COUNT 0.76 K/ L 0.04-0.54 H (BEAKER) (test code = 416) BASOPHILS ABSOLUTE COUNT (BEAKER) 0.02 K/ L 0.01-0.08 (test code = 417) IMMATURE GRANULOCYTES-RELATIVE 1 % 0-1 PERCENT (BEAKER) (test code = 2801) POCT-GLUCOSE [id number] 00:00:00 Test Item Value Reference Range Interpretation Comments POC-GLUCOSE METER 100 mg/dL 70-110 : [facility] (test code [facility], = 1538) 29553: Metal Tube Cutter/Techni aaron ID = [id number] for JACKSON BOLDEN BASIC METABOLIC [id number] 19:33:00 Test Item Value Reference Range Interpretation Comments SODIUM (BEAKER) 148 meq/L 136-145 H (test code = 381) POTASSIUM (BEAKER) 4.3 meq/L 3.5-5.1 Specimen slightly (test code = 379) hemolyzed CHLORIDE (BEAKER) 113 meq/L 98-107 H (test code = 382) CO2 (BEAKER) (test 31 meq/L 22-29 H code = 355) BLOOD UREA NITROGEN 52 mg/dL 7-21 H (BEAKER) (test code = 354) CREATININE (BEAKER) 1.07 mg/dL 0.57-1.25 Specimen slightly (test code = 358) hemolyzed GLUCOSE RANDOM 98 mg/dL 70-105 (BEAKER) (test code = 652) CALCIUM (BEAKER) 8.5 mg/dL 8.4-10.2 (test code = 697) EGFR (BEAKER) (test 70 mL/min/1.73 ESTIMA ARLENE GFR IS code = 1092) sq m NOT ACCURATE CREATININE CLEARANCE IN PREDICTING GLOMERULAR FILTRATION RATE . ESTIMATED GFR I S NOT APPLICABLE FOR DIALYSIS PATIEN TS. Metal Tube Cutter ID - [id number] 19:04:00 Test Item Value Reference Range Interpretation Comments PARTIAL THROMBOPLASTIN TIME 57.5 seconds 22.5-36.0 H (BEAKER) (test code = 760) POCT-GLUCOSE [id number] 18:18:00 Test Item Value Reference Range Interpretation Comments POC-GLUCOSE METER 105 mg/dL 70-110 : TESTED A T [facility] 67[address] ([place]) (test code = [facility], 1538) [address]: Metal Tube Cutter/Techni aaron ID = [id number] for [place] LLIAMS, ELADIA POCT-GLUCOSE [id number] 11:54:00 Test Item Value Reference Range Interpretation Comments POC-GLUCOSE METER 90 mg/dL 70-110 : TESTED A T [facility] [address] ([place]) (test code = [facility], 1538) [address]: Metal Tube Cutter/Techni aaron ID = [id number] for WILL IAMS, ELADIA [id number] 11:32:00 Test Item Value Reference Range Interpretation Comments PARTIAL THROMBOPLASTIN TIME 70.7 seconds 22.5-36.0 H ([facility]) (test code = 760) RAD, CHEST, 1 VIEW, NON [id number] 10:46:00Reason for exam:->CT in placeShould this be [...] None. Signed: Alicia Garcia MDReport Verified Date/Time: 04/01/2019 10:46:42 Reading Location: [facility] Radiology Reading Room LEGIONELLA [id number] 10:17:00 Test Item Value Reference Range Interpretation Comments CULTURE (BEAKER) No Legionella species (test code = 1095) isolated POCT-GLUCOSE [id number] 06:39:00 Test Item Value Reference Range Interpretation Comments POC-GLUCOSE METER 100 mg/dL 70-110 : [facility] (test code [facility], = 1538) [id number]: Metal Tube Cutter/Techni aaron ID = [id number] for SUGU , SHEENAMOL [id number] 04:13:00 Test Item Value Reference Range Interpretation Comments PARTIAL THROMBOPLASTIN TIME 108.7 seconds 22.5-36.0 H (BEAKER) (test code = 760) BLOOD GAS, [id number] 04:03:00 Test Item Value Reference Range Interpretation Comments PH ARTERIAL (BEAKER) (test code = 7.54 7.35-7.45 H 383) PCO2 ARTERIAL (BEAKER) (test code 36 mmHg 35-45 = 384) PO2 ARTERIAL (BEAKER) (test code = 79 mmHg 80-90 L 385) O2 SATURATION ARTERIAL (BEAKER) 97.2 % 96.0-97.0 H (test code = 386) HCO3 ARTERIAL (BEAKER) (test code 31 mmol/L 21-29 H = 388) BASE EXCESS ARTERIAL (BEAKER) 7.2 mmol/L -2.0-3.0 H (test code = 387) PATIENT TEMPERATURE (BEAKER) (test 36.0 C code = 1818) FIO2 (BEAKER) (test code = 1819) 21.0 % [id number] 03:53:00 Test Item Value Reference Range Interpretation Comments PHOSPHORUS (BEAKER) (test code = 3.9 mg/dL 2.3-4.7 604) Metal Tube Cutter ID - ELISSA [id number] 03:53:00 Test Item Value Reference Range Interpretation Comments MAGNESIUM (BEAKER) (test code = 2.1 mg/dL 1.6-2.6 627) Metal Tube Cutter ID - ELISSA MBASIC METABOLIC [id number] 03:53:00 Test Item Value Reference Range Interpretation Comments SODIUM (BEAKER) 147 meq/L 136-145 H (test code = 381) POTASSIUM (BEAKER) 3.8 meq/L 3.5-5.1 (test code = 379) CHLORIDE (BEAKER) 114 meq/L 98-107 H (test code = 382) CO2 (BEAKER) (test 28 meq/L 22-29 code = 355) BLOOD UREA NITROGEN 56 mg/dL 7-21 H (BEAKER) (test code = 354) CREATININE (BEAKER) 0.96 mg/dL 0.57-1.25 (test code = 358) GLUCOSE RANDOM 112 mg/dL 70-105 H (BEAKER) (test code = 652) CALCIUM (BEAKER) 8.4 mg/dL 8.4-10.2 (test code = 697) EGFR (BEAKER) (test 79 mL/min/1.73 ESTIMA ARLENE GFR IS code = 1092) sq m NOT ACCURATE CREATININE CLEARANCE IN PREDICTING GLOMERULAR FILTRATION RATE . ESTIMATED GFR I S NOT APPLICABLE FOR DIALYSIS PATIEN TS. Metal Tube Cutter ID - ELISSA MCBC W/PLT COUNT & AUTO [id number] 03:44:00 Test Item Value Reference Range Interpretation Comments WHITE BLOOD CELL COUNT (BEAKER) 10.7 K/ L 3.5-10.5 H (test code = 775) RED BLOOD CELL COUNT (BEAKER) 3.62 M/ L 4.63-6.08 L (test code = 761) HEMOGLOBIN (BEAKER) (test code = 9.0 GM/DL 13.7-17.5 L 410) HEMATOCRIT (BEAKER) (test code = 29.7 % 40.1-51.0 L 411) MEAN CORPUSCULAR VOLUME (BEAKER) 82.0 fL 79.0-92.2 (test code = 753) MEAN CORPUSCULAR HEMOGLOBIN 24.9 pg 25.7-32.2 L (BEAKER) (test code = 751) MEAN CORPUSCULAR HEMOGLOBIN CONC 30.3 GM/DL 32.3-36.5 L (BEAKER) (test code = 752) RED CELL DISTRIBUTION WIDTH 25.5 % 11.6-14.4 H (BEAKER) (test code = 412) PLATELET COUNT (BEAKER) (test 226 K/CU MM 150-450 code = 756) MEAN PLATELET VOLUME (BEAKER) 11.9 fL 9.4-12.4 (test code = 754) NUCLEATED RED BLOOD CELLS 0 /100 WBC 0-0 (BEAKER) (test code = 413) NEUTROPHILS RELATIVE PERCENT 72 % (BEAKER) (test code = 429) LYMPHOCYTES RELATIVE PERCENT 16 % (BEAKER) (test code = 430) MONOCYTES RELATIVE PERCENT 7 % (BEAKER) (test code = 431) EOSINOPHILS RELATIVE PERCENT 4 % (BEAKER) (test code = 432) BASOPHILS RELATIVE PERCENT 0 % (BEAKER) (test code = 437) NEUTROPHILS ABSOLUTE COUNT 7.72 K/ L 1.78-5.38 H (BEAKER) (test code = 670) LYMPHOCYTES ABSOLUTE COUNT 1.69 K/ L 1.32-3.57 (BEAKER) (test code = 414) MONOCYTES ABSOLUTE COUNT (BEAKER) 0.75 K/ L 0.30-0.82 (test code = 415) EOSINOPHILS ABSOLUTE COUNT 0.43 K/ L 0.04-0.54 (BEAKER) (test code = 416) BASOPHILS ABSOLUTE COUNT (BEAKER) 0.03 K/ L 0.01-0.08 (test code = 417) IMMATURE GRANULOCYTES-RELATIVE 1 % 0-1 PERCENT (BEAKER) (test code = 2801) POCT-GLUCOSE [id number] 00:02:00 Test Item Value Reference Range Interpretation Comments POC-GLUCOSE METER 87 mg/dL 70-110 : TESTED A T [facility] 6720 (BEAKER) (test code = ILDA Calvert [facility], 1538) [id number]: Metal Tube Cutter/Techni aaron ID = [id number] for SUGU , SHEENAMOL [id number] 22:40:00 Test Item Value Reference Range Interpretation Comments PARTIAL THROMBOPLASTIN TIME 43.8 seconds 22.5-36.0 H (BEAKER) (test code = 760) [id number] 20:55:00 Test Item Value Reference Range Interpretation Comments PARTIAL THROMBOPLASTIN TIME 115.9 seconds 22.5-36.0 H (BEAKER) (test code = 760) POCT-GLUCOSE [id number] 18:19:00 Test Item Value Reference Range Interpretation Comments POC-GLUCOSE METER 92 mg/dL 70-110 : TESTED A T [facility] 67[facility] (YELITZA) (test code = ILDA Calvert [facility], 1538) [id number]: Metal Tube Cutter/Techni aaron ID = [id number] for ELADIA KEARNEY [id number] 16:03:00Medical Cytology Report Case: [id number] Authorizing Provider: Jerald Bartlett Collected: 03/28/2019 08Kayli Whitney MD Ordering Location: [place] [address] ICU Received: 03/28/2019 1332 Pathologist: Lexus Robbins MD Specimen: Pleural PLEURAL FLUID (CYTOSPINS): - RARE REACTIVE MESOTHELIAL CELLS PRESENT IN A BACKGROUND OF ABUNDANT ACUTE INFLAMMATION Signing Pathologist Direct Phone Line: [phone] signed by Lexus Robbins MD on 03/31/2019 at 4:03 [id number] effusion; HFpEF, bioprosthetic valve, COPD, Afib, and chronic right pleural effusion who presented to OSH on 03/11 w/ respiratory failure and now bilateral pleural effusionsPLEURAL FLUID (LATERALITY NOT DESIGNATED)Received 20 ml dark orange fluidPrepared 4 cytospinsCollected: [id number]: [id number].[facility], Department of Pa thology, [address] [place] [address], [facility]bMar[facility], Department of Pathology, [address] [place] [address], NcamwwMarinHealth [facility], Department of Pathology, [address] [place] [address], DJDPYSCU I 2019-03-31 14:43:00 Test Item Value Reference Range Interpretation Comments TROPONIN I (YELITZA) (test code = 0.20 ng/mL 0.00-0.03 [facility]) Troponin I (TnI) levels must be interpreted [...] failure, acidosis, acute neurological disease, and persistent tachyarrhythmia.Metal Tube Cutter ID Sultana SCOTT FCOMPREHENSIVE METABOLIC [id number] 14:39:00 Test Item Value Reference Range Interpretation Comments TOTAL PROTEIN 5.3 gm/dL 6.0-8.3 L (BEAKER) (test code = 770) ALBUMIN (BEAKER) 1.7 g/dL 3.5-5.0 L (test code = 1145) ALKALINE PHOSPHATASE 101 U/L 40-150 (BEAKER) (test code = 346) BILIRUBIN TOTAL 1.8 mg/dL 0.2-1.2 H (BEAKER) (test code = 377) SODIUM (BEAKER) (test 149 meq/L 136-145 H code = 381) POTASSIUM (BEAKER) 3.8 meq/L 3.5-5.1 (test code = 379) CHLORIDE (BEAKER) 113 meq/L 98-107 H (test code = 382) CO2 (BEAKER) (test 30 meq/L 22-29 H code = 355) BLOOD UREA NITROGEN 54 mg/dL 7-21 H (BEAKER) (test code = 354) CREATININE (BEAKER) 0.97 mg/dL 0.57-1.25 (test code = 358) GLUCOSE RANDOM 103 mg/dL 70-105 (BEAKER) (test code = 652) CALCIUM (BEAKER) 8.8 mg/dL 8.4-10.2 (test code = 697) AST (SGOT) (BEAKER) 45 U/L 5-34 H (test code = 353) ALT (SGPT) (BEAKER) 32 U/L 6-55 (test code = 347) EGFR (BEAKER) (test 78 mL/min/1.73 ESTIMA ARLENE GFR IS code = 1092) sq m NOT ACCURATE CREATININE CLEARANCE IN PREDICTING GLOMERULAR FILTRATION RATE . ESTIMATED GFR I S NOT APPLICABLE FOR DIALYSIS PATIEN TS. Metal Tube Cutter ANGELI SCOTT [id number] 14:33:00 Test Item Value Reference Range Interpretation Comments PHOSPHORUS (BEAKER) (test code = 3.7 mg/dL 2.3-4.7 604) Metal Tube Cutter ID Sultana SCOTT [id number] 14:33:00 Test Item Value Reference Range Interpretation Comments MAGNESIUM (BEAKER) (test code = 2.1 mg/dL 1.6-2.6 627) Metal Tube Cutter ANGELI MELGARASIC METABOLIC [id number] 14:33:00 Test Item Value Reference Range Interpretation Comments SODIUM (BEAKER) 149 meq/L 136-145 H (test code = 381) POTASSIUM (BEAKER) 3.8 meq/L 3.5-5.1 (test code = 379) CHLORIDE (BEAKER) 113 meq/L 98-107 H (test code = 382) CO2 (BEAKER) (test 30 meq/L 22-29 H code = 355) BLOOD UREA NITROGEN 54 mg/dL 7-21 H (BEAKER) (test code = 354) CREATININE (BEAKER) 0.97 mg/dL 0.57-1.25 (test code = 358) GLUCOSE RANDOM 103 mg/dL 70-105 (BEAKER) (test code = 652) CALCIUM (BEAKER) 8.8 mg/dL 8.4-10.2 (test code = 697) EGFR (BEAKER) (test 78 mL/min/1.73 ESTIMA ARLENE GFR IS code = 1092) sq m NOT ACCURATE CREATININE CLEARANCE IN PREDICTING GLOMERULAR FILTRATION RATE . ESTIMATED GFR I S NOT APPLICABLE FOR DIALYSIS PATIEN TS. [id number] 14:31:00 Test Item Value Reference Range Interpretation Comments PROTIME (BEAKER) (test code = 17.0 seconds 11.9-14.2 H 759) INR (BEAKER) (test code = 370) 1.4 <=5.9 PARTIAL THROMBOPLASTIN TIME 68.3 seconds 22.5-36.0 H (BEAKER) (test code = 760) Effective 07/24/2018: PT Reference Range ChangeNew: 11.9-14.2 Previous: 11.7- 14.7RECOMMENDED COUMADIN/WARFARIN INR THERAPY RANGESSTANDARD DOSE: 2.0-3.0 Includes: PROPHYLAXIS for venous thrombosis, systemic embolization; TREATMENT for venous thrombosis and/or pulmonary embolus.HIGH RISK: Target INR is2.5-3.5 for patients wiht mechanical heart valves.[id number] 14:31:00 Test Item Value Reference Range Interpretation Comments PARTIAL THROMBOPLASTIN TIME 68.3 seconds 22.5-36.0 H (BEAKER) (test code = 760) LACTIC ACID, [id number] 14:30:00 Test Item Value Reference Range Interpretation Comments LACTATE BLOOD VENOUS (2) (BEAKER) 1.7 mmol/L 0.5-2.2 (test code = 2872) Metal Tube Cutter ID - SONIA THURMAN, CHEST, 1 VIEW, NON [id number] 12:14:00Reason for exam:->CT in placeShould this be [...] Maldonado Verified Date/Time: 03/31/2019 12:14:06 Reading Location: [facility] Mammo Reading Room POCT-GLUCOSE [id number] 12:02:00 Test Item Value Reference Range Interpretation Comments POC-GLUCOSE METER 97 mg/dL 70-110 : [facility] (test code = IL[place], 1538) [address]: Metal Tube Cutter/Techni aaron ID = [id number] for WILL IAMS, ELADIA RAD, ABDOMEN/KUB, 1 VIEW [id number] 11:36:00Reason for exam:->NGT placement FINAL REPORT RAD, ABDOMEN/KUB, 1 VIEW AP INDICATION: NGT placement COMPARISON: None TECHNIQUE: Limited portable radiograph of the lower chest and upper abdomen was acquired for purposes of evaluating nasogastric tube placement FINDINGS:Nasogastric tube tip overlies the stomach Signed: Alicia Garcia Verified Date/Time: 03/31/2019 11:36:59 Reading Location: [facility] Radiology Reading Room TROPOLAVERNEN [id number] 10:05:00 Test Item Value Reference Range Interpretation Comments TROPONIN I (BEAKER) (test code = 0.25 ng/mL 0.00-0.03 HH 397) Troponin I (TnI) levels must be interpreted [...] failure, acidosis, acute neurological disease, and persistent tachyarrhythmia.Metal Tube Cutter ID - SONIA [id number] 07:11:00 Test Item Value Reference Range Interpretation Comments PARTIAL THROMBOPLASTIN TIME 44.8 seconds 22.5-36.0 H (BEAKER) (test code = 760) BLOOD GAS, [id number] 06:56:00 Test Item Value Reference Range Interpretation Comments PH ARTERIAL (BEAKER) (test code = 7.48 7.35-7.45 H 383) PCO2 ARTERIAL (BEAKER) (test code 41 mmHg 35-45 = 384) PO2 ARTERIAL (BEAKER) (test code = 186 mmHg 80-90 H 385) O2 SATURATION ARTERIAL (BEAKER) 99.4 % 96.0-97.0 H (test code = 386) HCO3 ARTERIAL (BEAKER) (test code 30 mmol/L 21-29 H = 388) BASE EXCESS ARTERIAL (BEAKER) 5.8 mmol/L -2.0-3.0 H (test code = 387) PATIENT TEMPERATURE (BEAKER) (test 36.5 C code = 1818) FIO2 (BEAKER) (test code = 1819) 40.0 % BASIC METABOLIC [id number] 06:08:00 Test Item Value Reference Range Interpretation Comments SODIUM (BEAKER) 150 meq/L 136-145 H (test code = 381) POTASSIUM (BEAKER) 4.1 meq/L 3.5-5.1 (test code = 379) CHLORIDE (BEAKER) 116 meq/L 98-107 H (test code = 382) CO2 (BEAKER) (test 29 meq/L 22-29 code = 355) BLOOD UREA NITROGEN 54 mg/dL 7-21 H (BEAKER) (test code = 354) CREATININE (BEAKER) 1.02 mg/dL 0.57-1.25 (test code = 358) GLUCOSE RANDOM 95 mg/dL 70-105 (BEAKER) (test code = 652) CALCIUM (BEAKER) 9.0 mg/dL 8.4-10.2 (test code = 697) EGFR (BEAKER) (test 74 mL/min/1.73 ESTIMA ARLENE GFR IS code = 1092) sq m NOT ACCURATE CREATININE CLEARANCE IN PREDICTING GLOMERULAR FILTRATION RATE . ESTIMATED GFR I S NOT APPLICABLE FOR DIALYSIS PATIEN TS. Metal Tube Cutter ID - EMILIE LPOCT-GLUCOSE [id number] 05:52:00 Test Item Value Reference Range Interpretation Comments POC-GLUCOSE METER 89 mg/dL 70-110 : TESTED A T [facility] (BEAKER) (test code = ILDA [place], 1538) 10[address]: Metal Tube Cutter/Techni aaron ID = [id number] for EDISON CALDWELL [id number] 05:29:00 Test Item Value Reference Range Interpretation Comments PARTIAL THROMBOPLASTIN TIME 111.7 seconds 22.5-36.0 H (BEAKER) (test code = 760) [id number] 05:27:00 Test Item Value Reference Range Interpretation Comments PHOSPHORUS (BEAKER) (test code = 3.6 mg/dL 2.3-4.7 604) Metal Tube Cutter ID - EMILIE [id number] 05:27:00 Test Item Value Reference Range Interpretation Comments MAGNESIUM (BEAKER) (test code = 2.1 mg/dL 1.6-2.6 627) Metal Tube Cutter ID Sultana PHAN LLACTIC ACID, [id number] 04:56:00 Test Item Value Reference Range Interpretation Comments LACTATE BLOOD VENOUS (2) (BEAKER) 1.8 mmol/L 0.5-2.2 (test code = 2872) Metal Tube Cutter ID Sultana PHAN LCBC W/PLT COUNT & AUTO [id number] 04:41:00 Test Item Value Reference Range Interpretation Comments WHITE BLOOD CELL COUNT 13.4 K/ L 3.5-10.5 H (BEAKER) (test code = 775) RED BLOOD CELL COUNT 3.65 M/ L 4.63-6.08 L (BEAKER) (test code = 761) HEMOGLOBIN (BEAKER) 9.2 GM/DL 13.7-17.5 L (test code = 410) HEMATOCRIT (BEAKER) 29.6 % 40.1-51.0 L (test code = 411) MEAN CORPUSCULAR 81.1 fL 79.0-92.2 Discordant MCV VOLUME (BEAKER) (test result s compared to code = 753) previous result s; clinical correl ation required. MEAN CORPUSCULAR 25.2 pg 25.7-32.2 L HEMOGLOBIN (BEAKER) (test code = 751) MEAN CORPUSCULAR 31.1 GM/DL 32.3-36.5 L HEMOGLOBIN CONC (BEAKER) (test code = 752) RED CELL DISTRIBUTION 24.4 % 11.6-14.4 H WIDTH (BEAKER) (test code = 412) PLATELET COUNT 226 K/CU MM 150-450 (BEAKER) (test code = 756) MEAN PLATELET VOLUME 12.8 fL 9.4-12.4 H (BEAKER) (test code = 754) NUCLEATED RED BLOOD 0 /100 WBC 0-0 CELLS (BEAKER) (test code = 413) NEUTROPHILS RELATIVE 82 % PERCENT (BEAKER) (test code = 429) LYMPHOCYTES RELATIVE 11 % PERCENT (BEAKER) (test code = 430) MONOCYTES RELATIVE 6 % PERCENT (BEAKER) (test code = 431) EOSINOPHILS RELATIVE 1 % PERCENT (BEAKER) (test code = 432) BASOPHILS RELATIVE 0 % PERCENT (BEAKER) (test code = 437) NEUTROPHILS ABSOLUTE 10.95 K/ L 1.78-5.38 H COUNT (BEAKER) (test code = 670) LYMPHOCYTES ABSOLUTE 1.48 K/ L 1.32-3.57 COUNT (BEAKER) (test code = 414) MONOCYTES ABSOLUTE 0.80 K/ L 0.30-0.82 COUNT (BEAKER) (test code = 415) EOSINOPHILS ABSOLUTE 0.07 K/ L 0.04-0.54 COUNT (BEAKER) (test code = 416) BASOPHILS ABSOLUTE 0.02 K/ L 0.01-0.08 COUNT (BEAKER) (test code = 417) IMMATURE 1 % 0-1 GRANULOCYTES-RELATIVE PERCENT (BEAKER) (test code = 2801) BLOOD GAS, [id number] 04:30:00 Test Item Value Reference Range Interpretation Comments PH ARTERIAL (BEAKER) (test code = 7.60 7.35-7.45 HH 383) PCO2 ARTERIAL (BEAKER) (test code 29 mmHg 35-45 L = 384) PO2 ARTERIAL (BEAKER) (test code = 198 mmHg 80-90 H 385) O2 SATURATION ARTERIAL (BEAKER) 99.5 % 96.0-97.0 H (test code = 386) HCO3 ARTERIAL (BEAKER) (test code 27 mmol/L 21-29 = 388) BASE EXCESS ARTERIAL (BEAKER) 5.6 mmol/L -2.0-3.0 H (test code = 387) PATIENT TEMPERATURE (BEAKER) (test 36.5 C code = 1818) FIO2 (BEAKER) (test code = 1819) 40.0 % CT, BRAIN, WITHOUT [id number] 04:20:00FINAL REPORT EXAM: CT, BRAIN, WITHOUT CONTRAST [...] recommended for further characterization. Signed: Tomasa Luque VerifiedDate/Time: 03/31/2019 04:20:24 TROPONIN I 2019-03-31 02:38:00 Test Item Value Reference Range Interpretation Comments TROPONIN I ([facility]) (test code = 0.22 ng/mL 0.00-0.03 397) Troponin I (TnI) levels must be interpreted [...] failure, acidosis, acute neurological disease, and persistent tachyarrhythmia.Metal Tube Cutter ID - EMILIE LB-TYPE NATRIURETIC FACTOR (BNP)2019-03-31 02:23:00 Test Item Value Reference Range Interpretation Comments B-TYPE NATRIURETIC PEPTIDE 1761 pg/mL 0-100 H ([facility]) (test code = 700) Metal Tube Cutter ID - LCBECKY LLACTIC ACID, [id number] 02:14:00 Test Item Value Reference Range Interpretation Comments LACTATE BLOOD VENOUS (2) ([facility]) 1.8 mmol/L 0.5-2.2 (test code = 2872) Metal Tube Cutter ID - EMILIE LPOCT-GLUCOSE [id number] 00:30:00 Test Item Value Reference Range Interpretation Comments POC-GLUCOSE METER 94 mg/dL 70-110 : [facility]) (test code = ILDA Calvert [facility], 1538) [address]: Metal Tube Cutter/Techni aaron ID = [id number] for OLENA Syed EDISON CT, CHEST WITH IV CONTRAST- PE TEST [id number] 00:25:00FINAL REPORT Comparison: CT chest dated 03/17/2019 [...] Gunjan Hanson MDReport Verified Date/Time: 03/31/2019 00:25:44 [id number] 21:46:00 Test Item Value Reference Range Interpretation Comments MAGNESIUM (BEAKER) (test code = 2.1 mg/dL 1.6-2.6 627) Metal Tube Cutter ID - KENNCOMPREHENSIVE METABOLIC [id number] 21:46:00 Test Item Value Reference Range Interpretation Comments TOTAL PROTEIN 4.4 gm/dL 6.0-8.3 L (BEAKER) (test code = 770) ALBUMIN (BEAKER) 1.4 g/dL 3.5-5.0 L (test code = 1145) ALKALINE PHOSPHATASE 123 U/L 40-150 (BEAKER) (test code = 346) BILIRUBIN TOTAL 1.2 mg/dL 0.2-1.2 (BEAKER) (test code = 377) SODIUM (BEAKER) (test 148 meq/L 136-145 H code = 381) POTASSIUM (BEAKER) 4.8 meq/L 3.5-5.1 (test code = 379) CHLORIDE (BEAKER) 119 meq/L 98-107 H (test code = 382) CO2 (BEAKER) (test 27 meq/L 22-29 code = 355) BLOOD UREA NITROGEN 54 mg/dL 7-21 H (BEAKER) (test code = 354) CREATININE (BEAKER) 1.12 mg/dL 0.57-1.25 (test code = 358) GLUCOSE RANDOM 360 mg/dL 70-105 H (BEAKER) (test code = 652) CALCIUM (BEAKER) 12.3 mg/dL 8.4-10.2 H (test code = 697) AST (SGOT) (BEAKER) 38 U/L 5-34 H (test code = 353) ALT (SGPT) (BEAKER) 24 U/L 6-55 (test code = 347) EGFR (BEAKER) (test 66 mL/min/1.73 ESTIMA ARLENE GFR IS code = 1092) sq m NOT ACCURATE CREATININE CLEARANCE IN PREDICTING GLOMERULAR FILTRATION RATE . ESTIMATED GFR I S NOT APPLICABLE FOR DIALYSIS PATIEN TS. Metal Tube Cutter ID - NTPOperator ID - KAUSHIKNTROPONIN [id number] 21:23:00 Test Item Value Reference Range Interpretation Comments TROPONIN I (BEAKER) (test code = 0.11 ng/mL 0.00-0.03 H 397) Troponin I (TnI) levels must be interpreted [...] failure, acidosis, acute neurological disease, and persistent tachyarrhythmia.Metal Tube Cutter ID - [id number] 21:21:00 Test Item Value Reference Range Interpretation Comments PHOSPHORUS (BEAKER) (test code = 4.5 mg/dL 2.3-4.7 604) Metal Tube Cutter ID - NTPLACTIC ACID, [id number] 21:15:00 Test Item Value Reference Range Interpretation Comments LACTATE BLOOD VENOUS (2) (BEAKER) 4.5 mmol/L 0.5-2.2 H (test code = 2872) Metal Tube Cutter ID - NTPRAD, CHEST, 1 VIEW, NON [id number] 21:13:00Reason for exam:->cardiac arrestShould this be performed [...] surgical changes.Additional findings: None. Signed: Gunjan Hanson Verified Date/Time: 03/30/2019 21:13:13 -CALCIUM [id number] 20:57:00 Test Item Value Reference Range Interpretation Comments POC-CALCIUM IONIZED 1.63 mmol/L 1.12-1.27 HH TESTED A T [place] [address] ([facility]) (test code = [facility] 1536) [address] [id number] 20:57:00 Test Item Value Reference Range Interpretation Comments POC-HEMATOCRIT 28 % 40-50 L TESTED AT [place] [address] ([facility]) (test code = [facility] [address] 1857) [id number] 20:57:00 Test Item Value Reference Range Interpretation Comments POC-HEMOGLOBIN 9.5 g/dL 13.0-16.8 L TESTED AT [place] [address] ([facility] (test code = [facility] 1856) [id number] AT [place] [id number] [place] [address] POCT-BLOOD GASES, [id number] 20:56:00 Test Item Value Reference Range Interpretation Comments TEMP, CELSIUS-POC 36.1 (BEAKER) (test code = 1834) FIO2-POC (BEAKER) 100 TESTED AT [place] [address] (test code = 1835) [facility] [place] [address] PH, ARTERIAL-POC 7.320 7.350-7.450 L (BEAKER) (test code = 1836) PCO2, ARTERIAL-POC 61.8 mm Hg 35.0-45.0 H (BEAKER) (test code = 1837) PO2, ARTERIAL-POC 409.0 mm Hg 80.0-90.0 H (BEAKER) (test code = 1838) SO2, ARTERIAL-POC 100.0 % 96.0-97.0 H (BEAKER) (test code = 1839) HCO3, ARTERIAL-POC 32.2 meq/L 21.0-29.0 H (BEAKER) (test code = 1840) BASE EXCESS, 6.0 meq/L -2.0-3.0 H ARTERIAL-POC (BEAKER) (test code = 1841) [id number] 20:56:00 Test Item Value Reference Range Interpretation Comments POC-SODIUM (BEAKER) 147 meq/L 135-[address] [facility] (test code = 1542) [facility] [place] [address] [id number] 20:56:00 Test Item Value Reference Range Interpretation Comments POC-POTASSIUM 4.1 meq/L 3.6-5.5 TESTED AT [facility] 67 (BEAKER) ([place] [address] = 1540) [id number] 20:56:00 Test Item Value Reference Range Interpretation Comments POC-GLUCOSE (BEAKER) 249 mg/dL 70-[address] [facility] (test code = 1855) [facility] [place] [address] CBC W/PLT COUNT & AUTO [id number] 20:54:00 Test Item Value Reference Range Interpretation Comments WHITE BLOOD CELL COUNT (BEAKER) 12.9 K/ L 3.5-10.5 H (test code = 775) RED BLOOD CELL COUNT (BEAKER) 3.71 M/ L 4.63-6.08 L (test code = 761) HEMOGLOBIN (BEAKER) (test code = 9.4 GM/DL 13.7-17.5 L 410) HEMATOCRIT (BEAKER) (test code = 31.6 % 40.1-51.0 L 411) MEAN CORPUSCULAR VOLUME (BEAKER) 85.2 fL 79.0-92.2 (test code = 753) MEAN CORPUSCULAR HEMOGLOBIN 25.3 pg 25.7-32.2 L (BEAKER) (test code = 751) MEAN CORPUSCULAR HEMOGLOBIN CONC 29.7 GM/DL 32.3-36.5 L (BEAKER) (test code = 752) RED CELL DISTRIBUTION WIDTH 24.5 % 11.6-14.4 H (BEAKER) (test code = 412) PLATELET COUNT (BEAKER) (test 226 K/CU MM 150-450 code = 756) MEAN PLATELET VOLUME (BEAKER) 12.8 fL 9.4-12.4 H (test code = 754) NUCLEATED RED BLOOD CELLS 1 /100 WBC 0-0 H (BEAKER) (test code = 413) NEUTROPHILS RELATIVE PERCENT 60 % (BEAKER) (test code = 429) LYMPHOCYTES RELATIVE PERCENT 28 % (BEAKER) (test code = 430) MONOCYTES RELATIVE PERCENT 7 % (BEAKER) (test code = 431) EOSINOPHILS RELATIVE PERCENT 2 % (BEAKER) (test code = 432) BASOPHILS RELATIVE PERCENT 0 % (BEAKER) (test code = 437) NEUTROPHILS ABSOLUTE COUNT 7.74 K/ L 1.78-5.38 H (BEAKER) (test code = 670) LYMPHOCYTES ABSOLUTE COUNT 3.63 K/ L 1.32-3.57 H (BEAKER) (test code = 414) MONOCYTES ABSOLUTE COUNT (BEAKER) 0.90 K/ L 0.30-0.82 H (test code = 415) EOSINOPHILS ABSOLUTE COUNT 0.24 K/ L 0.04-0.54 (BEAKER) (test code = 416) BASOPHILS ABSOLUTE COUNT (BEAKER) 0.04 K/ L 0.01-0.08 (test code = 417) IMMATURE GRANULOCYTES-RELATIVE 3 % 0-1 H PERCENT (BEAKER) (test code = 2801) [id number] 18:34:00 Test Item Value Reference Range Interpretation Comments PARTIAL THROMBOPLASTIN TIME 74.5 seconds 22.5-36.0 H (BEAKER) (test code = 760) POCT-GLUCOSE [id number] 18:06:00 Test Item Value Reference Range Interpretation Comments POC-GLUCOSE METER 123 mg/dL 70-110 H : TESTED A T [facility] 6720 (BEAKER) (test code = [facility], 1538) 39541: Metal Tube Cutter/Techni aaron ID = [id number] for VILLAR YES, CRYSTAL BASIC METABOLIC [id number] 16:18:00 Test Item Value Reference Range Interpretation Comments SODIUM (BEAKER) 149 meq/L 136-145 H (test code = 381) POTASSIUM (BEAKER) 4.5 meq/L 3.5-5.1 (test code = 379) CHLORIDE (BEAKER) 116 meq/L 98-107 H (test code = 382) CO2 (BEAKER) (test 30 meq/L 22-29 H code = 355) BLOOD UREA NITROGEN 54 mg/dL 7-21 H (BEAKER) (test code = 354) CREATININE (BEAKER) 0.99 mg/dL 0.57-1.25 (test code = 358) GLUCOSE RANDOM 126 mg/dL 70-105 H (BEAKER) (test code = 652) CALCIUM (BEAKER) 8.2 mg/dL 8.4-10.2 L (test code = 697) EGFR (BEAKER) (test 76 mL/min/1.73 ESTIMA ARLENE GFR IS code = 1092) sq m NOT ACCURATE CREATININE CLEARANCE IN PREDICTING GLOMERULAR FILTRATION RATE . ESTIMATED GFR I S NOT APPLICABLE FOR DIALYSIS PATIEN TS. Metal Tube Cutter ID - [id number] 12:36:00 Test Item Value Reference Range Interpretation Comments PARTIAL THROMBOPLASTIN TIME 80.4 seconds 22.5-36.0 H (BEAKER) (test code = 760) POCT-GLUCOSE [id number] 12:00:00 Test Item Value Reference Range Interpretation Comments POC-GLUCOSE METER 116 mg/dL 70-110 H : TESTED A T [facility] 6720 (BEAKER) (test code = [facility], 1538) 170[address]: Metal Tube Cutter/Techni aaron ID = [id number] for SA NDEDAISY, ISABELA BLOOD [id number] 11:00:00 Test Item Value Reference Range Interpretation Comments CULTURE (BEAKER) (test No growth in 5 days code = 1095) BLOOD [id number] 11:00:00 Test Item Value Reference Range Interpretation Comments CULTURE (BEAKER) (test No growth in 5 days code = 1095) RAD, CHEST, 1 VIEW, NON [id number] 10:31:00Reason for exam:->CT in placeShould this be [...] MDReport Verified Date/Time: 03/30/2019 10:31:51 Reading Location: [address] Transitional Reading Room [id number] 06:59:00 Test Item Value Reference Range Interpretation Comments PARTIAL THROMBOPLASTIN TIME 53.3 seconds 22.5-36.0 H (BEAKER) (test code = 760) POCT-GLUCOSE [id number] 06:06:00 Test Item Value Reference Range Interpretation Comments POC-GLUCOSE METER 103 mg/dL 70-110 : TESTED A T [facility] 6720 (BEAKER) (test code = [facility], 1538) [address]: Metal Tube Cutter/Techni aaron ID = [id number] for SILVIO BARRETT [id number] 05:16:00 Test Item Value Reference Range Interpretation Comments PHOSPHORUS (BEAKER) (test code = 3.4 mg/dL 2.3-4.7 604) Metal Tube Cutter ID [employer] PHAN [id number] 05:16:00 Test Item Value Reference Range Interpretation Comments MAGNESIUM (BEAKER) (test code = 2.2 mg/dL 1.6-2.6 627) Metal Tube Cutter ID - EMILIE LBASIC METABOLIC [id number] 05:16:00 Test Item Value Reference Range Interpretation Comments SODIUM (BEAKER) 150 meq/L 136-145 H (test code = 381) POTASSIUM (BEAKER) 4.0 meq/L 3.5-5.1 (test code = 379) CHLORIDE (BEAKER) 118 meq/L 98-107 H (test code = 382) CO2 (BEAKER) (test 29 meq/L 22-29 code = 355) BLOOD UREA NITROGEN 51 mg/dL 7-21 H (BEAKER) (test code = 354) CREATININE (BEAKER) 0.90 mg/dL 0.57-1.25 (test code = 358) GLUCOSE RANDOM 121 mg/dL 70-105 H (BEAKER) (test code = 652) CALCIUM (BEAKER) 8.2 mg/dL 8.4-10.2 L (test code = 697) EGFR (BEAKER) (test 85 mL/min/1.73 ESTIMA ARLENE GFR IS code = 1092) sq m NOT ACCURATE CREATININE CLEARANCE IN PREDICTING GLOMERULAR FILTRATION RATE . ESTIMATED GFR I S NOT APPLICABLE FOR DIALYSIS PATIEN TS. Metal Tube Cutter ID - PIAYA [id number] 05:13:00 Test Item Value Reference Range Interpretation Comments PARTIAL THROMBOPLASTIN TIME 118.9 seconds 22.5-36.0 H (BEAKER) (test code = 760) CBC W/PLT COUNT & AUTO [id number] 04:58:00 Test Item Value Reference Range Interpretation Comments WHITE BLOOD CELL COUNT (BEAKER) 9.0 K/ L 3.5-10.5 (test code = 775) RED BLOOD CELL COUNT (BEAKER) 3.85 M/ L 4.63-6.08 L (test code = 761) HEMOGLOBIN (BEAKER) (test code = 9.8 GM/DL 13.7-17.5 L 410) HEMATOCRIT (BEAKER) (test code = 31.6 % 40.1-51.0 L 411) MEAN CORPUSCULAR VOLUME (BEAKER) 82.1 fL 79.0-92.2 (test code = 753) MEAN CORPUSCULAR HEMOGLOBIN 25.5 pg 25.7-32.2 L (BEAKER) (test code = 751) MEAN CORPUSCULAR HEMOGLOBIN CONC 31.0 GM/DL 32.3-36.5 L (BEAKER) (test code = 752) RED CELL DISTRIBUTION WIDTH 24.5 % 11.6-14.4 H (BEAKER) (test code = 412) PLATELET COUNT (BEAKER) (test 224 K/CU MM 150-450 code = 756) MEAN PLATELET VOLUME (BEAKER) 11.9 fL 9.4-12.4 (test code = 754) NUCLEATED RED BLOOD CELLS 0 /100 WBC 0-0 (BEAKER) (test code = 413) NEUTROPHILS RELATIVE PERCENT 73 % (BEAKER) (test code = 429) LYMPHOCYTES RELATIVE PERCENT 14 % (BEAKER) (test code = 430) MONOCYTES RELATIVE PERCENT 9 % (BEAKER) (test code = 431) EOSINOPHILS RELATIVE PERCENT 3 % (BEAKER) (test code = 432) BASOPHILS RELATIVE PERCENT 0 % (BEAKER) (test code = 437) NEUTROPHILS ABSOLUTE COUNT 6.58 K/ L 1.78-5.38 H (BEAKER) (test code = 670) LYMPHOCYTES ABSOLUTE COUNT 1.27 K/ L 1.32-3.57 L (BEAKER) (test code = 414) MONOCYTES ABSOLUTE COUNT (BEAKER) 0.78 K/ L 0.30-0.82 (test code = 415) EOSINOPHILS ABSOLUTE COUNT 0.29 K/ L 0.04-0.54 (BEAKER) (test code = 416) BASOPHILS ABSOLUTE COUNT (BEAKER) 0.03 K/ L 0.01-0.08 (test code = 417) IMMATURE GRANULOCYTES-RELATIVE 0 % 0-1 PERCENT (BEAKER) (test code = 2801) POCT-GLUCOSE [id number] 00:28:00 Test Item Value Reference Range Interpretation Comments POC-GLUCOSE METER 108 mg/dL 70-110 : TESTED A T [facility] 6720 (BEAKER) (test code = [facility], 1538) [address]: Metal Tube Cutter/Techni aaron ID = [id number] for SILVIO BARRETT POCT-GLUCOSE [id number] 18:26:00 Test Item Value Reference Range Interpretation Comments POC-GLUCOSE METER 90 mg/dL 70-110 : TESTED A T [facility] 6720 (BEAKER) (test code = [facility] [employer] [facility], 1538) [address]: Metal Tube Cutter/Techni aaron ID = [id number] for ISABELA LE BASIC METABOLIC [id number] 12:56:00 Test Item Value Reference Range Interpretation Comments SODIUM (BEAKER) 149 meq/L 136-145 H (test code = 381) POTASSIUM (BEAKER) 3.9 meq/L 3.5-5.1 (test code = 379) CHLORIDE (BEAKER) 116 meq/L 98-107 H (test code = 382) CO2 (BEAKER) (test 28 meq/L 22-29 code = 355) BLOOD UREA NITROGEN 59 mg/dL 7-21 H (BEAKER) (test code = 354) CREATININE (BEAKER) 1.00 mg/dL 0.57-1.25 (test code = 358) GLUCOSE RANDOM 112 mg/dL 70-105 H (BEAKER) (test code = 652) CALCIUM (BEAKER) 7.9 mg/dL 8.4-10.2 L (test code = 697) EGFR (BEAKER) (test 75 mL/min/1.73 ESTIMA ARLENE GFR IS code = 1092) sq m NOT ACCURATE CREATININE CLEARANCE IN PREDICTING GLOMERULAR FILTRATION RATE . ESTIMATED GFR I S NOT APPLICABLE FOR DIALYSIS PATIEN TS. Metal Tube Cutter ID - PIAYA LPOCT-GLUCOSE [id number] 12:30:00 Test Item Value Reference Range Interpretation Comments POC-GLUCOSE METER 109 mg/dL 70-110 : TESTED A T [facility] 6720 (BEAKER) (test code = ILDA Calvert [facility], 1538) 859[address]: Metal Tube Cutter/Techni aaron ID = [id number] for SA NDERS, ISABELA RAD, CHEST, 1 VIEW, NON [id number] 09:49:00Reason for exam:->ETT, chest tubesShould this be [...] MDReport Verified Date/Time: 03/29/2019 09:49:18 Reading Location: [address] Transitional Reading Room POCT-GLUCOSE [id number] 06:12:00 Test Item Value Reference Range Interpretation Comments POC-GLUCOSE METER 115 mg/dL 70-110 H : TESTED A T [facility] 6720 (BEAKER) (test code = ILDA Calvert [facility], 1538) 40[address]: Metal Tube Cutter/Techni aaron ID = [id number] for EJSSICA KULKARNI BASIC METABOLIC [id number] 04:51:00 Test Item Value Reference Range Interpretation Comments SODIUM (BEAKER) 150 meq/L 136-145 H (test code = 381) POTASSIUM (BEAKER) 4.1 meq/L 3.5-5.1 (test code = 379) CHLORIDE (BEAKER) 117 meq/L 98-107 H (test code = 382) CO2 (BEAKER) (test 30 meq/L 22-29 H code = 355) BLOOD UREA NITROGEN 66 mg/dL 7-21 H (BEAKER) (test code = 354) CREATININE (BEAKER) 1.16 mg/dL 0.57-1.25 (test code = 358) GLUCOSE RANDOM 114 mg/dL 70-105 H (BEAKER) (test code = 652) CALCIUM (BEAKER) 7.9 mg/dL 8.4-10.2 L (test code = 697) EGFR (BEAKER) (test 63 mL/min/1.73 ESTIMA ARLENE GFR IS code = 1092) sq m NOT ACCURATE CREATININE CLEARANCE IN PREDICTING GLOMERULAR FILTRATION RATE . ESTIMATED GFR I S NOT APPLICABLE FOR DIALYSIS PATIEN TS. Metal Tube Cutter ID - PIAYA LCBC W/PLT COUNT & AUTO [id number] 04:44:00 Test Item Value Reference Range Interpretation Comments WHITE BLOOD CELL COUNT (BEAKER) 9.6 K/ L 3.5-10.5 (test code = 775) RED BLOOD CELL COUNT (BEAKER) 3.63 M/ L 4.63-6.08 L (test code = 761) HEMOGLOBIN (BEAKER) (test code = 9.1 GM/DL 13.7-17.5 L 410) HEMATOCRIT (BEAKER) (test code = 29.3 % 40.1-51.0 L 411) MEAN CORPUSCULAR VOLUME (BEAKER) 80.7 fL 79.0-92.2 (test code = 753) MEAN CORPUSCULAR HEMOGLOBIN 25.1 pg 25.7-32.2 L (BEAKER) (test code = 751) MEAN CORPUSCULAR HEMOGLOBIN CONC 31.1 GM/DL 32.3-36.5 L (BEAKER) (test code = 752) RED CELL DISTRIBUTION WIDTH 22.9 % 11.6-14.4 H (BEAKER) (test code = 412) PLATELET COUNT (BEAKER) (test 223 K/CU MM 150-450 code = 756) MEAN PLATELET VOLUME (BEAKER) 11.7 fL 9.4-12.4 (test code = 754) NUCLEATED RED BLOOD CELLS 0 /100 WBC 0-0 (BEAKER) (test code = 413) NEUTROPHILS RELATIVE PERCENT 73 % (BEAKER) (test code = 429) LYMPHOCYTES RELATIVE PERCENT 13 % (BEAKER) (test code = 430) MONOCYTES RELATIVE PERCENT 9 % (BEAKER) (test code = 431) EOSINOPHILS RELATIVE PERCENT 4 % (BEAKER) (test code = 432) BASOPHILS RELATIVE PERCENT 0 % (BEAKER) (test code = 437) NEUTROPHILS ABSOLUTE COUNT 6.96 K/ L 1.78-5.38 H (BEAKER) (test code = 670) LYMPHOCYTES ABSOLUTE COUNT 1.28 K/ L 1.32-3.57 L (BEAKER) (test code = 414) MONOCYTES ABSOLUTE COUNT (BEAKER) 0.81 K/ L 0.30-0.82 (test code = 415) EOSINOPHILS ABSOLUTE COUNT 0.41 K/ L 0.04-0.54 (BEAKER) (test code = 416) BASOPHILS ABSOLUTE COUNT (BEAKER) 0.03 K/ L 0.01-0.08 (test code = 417) IMMATURE GRANULOCYTES-RELATIVE 1 % 0-1 PERCENT (BEAKER) (test code = 2801) [id number] 04:43:00 Test Item Value Reference Range Interpretation Comments PHOSPHORUS (BEAKER) (test code = 4.4 mg/dL 2.3-4.7 604) Metal Tube Cutter ID - LCBECKY [id number] 04:43:00 Test Item Value Reference Range Interpretation Comments MAGNESIUM (BEAKER) (test code = 2.2 mg/dL 1.6-2.6 627) Metal Tube Cutter ID - LCBECKY [id number] 04:39:00 Test Item Value Reference Range Interpretation Comments PARTIAL THROMBOPLASTIN TIME 83.9 seconds 22.5-36.0 H (BEAKER) (test code = 760) POCT-GLUCOSE [id number] 00:34:00 Test Item Value Reference Range Interpretation Comments POC-GLUCOSE METER 112 mg/dL 70-110 H : TESTED A T [facility] 6720 (BEAKER) (test code = [place], 1538) [address]: Metal Tube Cutter/Techni aaron ID = [id number] for AUNG HILARIOJESSICA Rojo VANCOMYCIN LEVEL, [id number] 23:23:00 Test Item Value Reference Range Interpretation Comments VANCOMYCIN TROUGH (BEAKER) (test 17.0 ug/mL 10.0-20.0 code = 522) Metal Tube Cutter ID - [id number] 21:15:00 Test Item Value Reference Range Interpretation Comments PARTIAL THROMBOPLASTIN TIME 84.7 seconds 22.5-36.0 H (BEAKER) (test code = 760) POCT-GLUCOSE [id number] 17:46:00 Test Item Value Reference Range Interpretation Comments POC-GLUCOSE METER 110 mg/dL 70-110 : TESTED A T [facility] 6720 (BEAKER) (test code = [facility] [place], 1538) [address]: Metal Tube Cutter/Techni aaron ID = [id number] for SLIME COLEY BASIC METABOLIC [id number] 16:41:00 Test Item Value Reference Range Interpretation Comments SODIUM (BEAKER) 149 meq/L 136-145 H (test code = 381) POTASSIUM (BEAKER) 4.4 meq/L 3.5-5.1 (test code = 379) CHLORIDE (BEAKER) 115 meq/L 98-107 H (test code = 382) CO2 (BEAKER) (test 32 meq/L 22-29 H code = 355) BLOOD UREA NITROGEN 68 mg/dL 7-21 H (BEAKER) (test code = 354) CREATININE (BEAKER) 1.25 mg/dL 0.57-1.25 (test code = 358) GLUCOSE RANDOM 116 mg/dL 70-105 H (BEAKER) (test code = 652) CALCIUM (BEAKER) 7.8 mg/dL 8.4-10.2 L (test code = 697) EGFR (BEAKER) (test 58 mL/min/1.73 ESTIMA ARLENE GFR IS code = 1092) sq m NOT ACCURATE CREATININE CLEARANCE IN PREDICTING GLOMERULAR FILTRATION RATE . ESTIMATED GFR I S NOT APPLICABLE FOR DIALYSIS PATIEN TS. Metal Tube Cutter ID - AAHAMIDANG, DRAINAGE TUBE CHANGE (GASTRO, [...] blood loss: < 5 cc. Specimen: None. tread tuber machine operator: Nato Dang MD. Hemodialysis Charge Nurse: Lauren. Fluoroscopy Time: 0.5 min.Reference Air Kerma [...] removed over the guidewire. A new 8.5 Icelandic Cook multipurpose drainage catheter was advanced over [...] pleural pigtail drainage catheter. Signed: Nato Dang [facility] Verified Date/Time: 03/28/2019 14:57:26 Reading Location: [place] [address] Angio Body Reading Room APTT 2019-03-28 14:39:00 Test Item Value Reference Range Interpretation Comments PARTIAL THROMBOPLASTIN TIME 77.6 seconds 22.5-36.0 H [facility] (test code = 760) POCT-GLUCOSE [id number] 13:05:00 Test Item Value Reference Range Interpretation Comments POC-GLUCOSE METER 96 mg/dL 70-110 : TESTED A T [facility] 6720 ([facility]) (test code = [facility] [place], 1538) [address]: Metal Tube Cutter/Techni aaron ID = [id number] for ASAEL N, SLIME RAD, CHEST, 1 VIEW, NON [id number] 06:59:00Reason for exam:->ETT, chest tubesShould this be [...] MDReport Verified Date/Time: 03/28/2019 06:59:41 Reading Location: [facility] Radiology Reading Room [id number] 06:54:00 Test Item Value Reference Range Interpretation Comments PARTIAL THROMBOPLASTIN TIME 36.3 seconds 22.5-36.0 H (BEAKER) (test code = 760) [id number] 05:09:00 Test Item Value Reference Range Interpretation Comments PARTIAL THROMBOPLASTIN TIME 111.4 seconds 22.5-36.0 H (BEAKER) (test code = 760) [id number] 05:05:00 Test Item Value Reference Range Interpretation Comments PHOSPHORUS (BEAKER) (test code = 5.0 mg/dL 2.3-4.7 H 604) Metal Tube Cutter ID - SANDRA [id number] 05:05:00 Test Item Value Reference Range Interpretation Comments MAGNESIUM (BEAKER) (test code = 2.2 mg/dL 1.6-2.6 627) Metal Tube Cutter ID - SANDRA WBASIC METABOLIC [id number] 05:05:00 Test Item Value Reference Range Interpretation Comments SODIUM (BEAKER) 146 meq/L 136-145 H (test code = 381) POTASSIUM (BEAKER) 4.7 meq/L 3.5-5.1 (test code = 379) CHLORIDE (BEAKER) 114 meq/L 98-107 H (test code = 382) CO2 (BEAKER) (test 29 meq/L 22-29 code = 355) BLOOD UREA NITROGEN 74 mg/dL 7-21 H (BEAKER) (test code = 354) CREATININE (BEAKER) 1.40 mg/dL 0.57-1.25 H (test code = 358) GLUCOSE RANDOM 123 mg/dL 70-105 H (BEAKER) (test code = 652) CALCIUM (BEAKER) 7.9 mg/dL 8.4-10.2 L (test code = 697) EGFR (BEAKER) (test 51 mL/min/1.73 ESTIMA ARLENE GFR IS code = 1092) sq m NOT ACCURATE CREATININE CLEARANCE IN PREDICTING GLOMERULAR FILTRATION RATE . ESTIMATED GFR I S NOT APPLICABLE FOR DIALYSIS PATIEN TS. Metal Tube Cutter ID - SANDRA WCBC W/PLT COUNT & AUTO [id number] 05:01:00 Test Item Value Reference Range Interpretation Comments WHITE BLOOD CELL COUNT (BEAKER) 14.5 K/ L 3.5-10.5 H (test code = 775) RED BLOOD CELL COUNT (BEAKER) 3.98 M/ L 4.63-6.08 L (test code = 761) HEMOGLOBIN (BEAKER) (test code = 10.1 GM/DL 13.7-17.5 L 410) HEMATOCRIT (BEAKER) (test code = 31.2 % 40.1-51.0 L 411) MEAN CORPUSCULAR VOLUME (BEAKER) 78.4 fL 79.0-92.2 L (test code = 753) MEAN CORPUSCULAR HEMOGLOBIN 25.4 pg 25.7-32.2 L (BEAKER) (test code = 751) MEAN CORPUSCULAR HEMOGLOBIN CONC 32.4 GM/DL 32.3-36.5 (BEAKER) (test code = 752) RED CELL DISTRIBUTION WIDTH 22.4 % 11.6-14.4 H (BEAKER) (test code = 412) PLATELET COUNT (BEAKER) (test 272 K/CU MM 150-450 code = 756) MEAN PLATELET VOLUME (BEAKER) 11.9 fL 9.4-12.4 (test code = 754) NUCLEATED RED BLOOD CELLS 0 /100 WBC 0-0 (BEAKER) (test code = 413) NEUTROPHILS RELATIVE PERCENT 76 % (BEAKER) (test code = 429) LYMPHOCYTES RELATIVE PERCENT 13 % (BEAKER) (test code = 430) MONOCYTES RELATIVE PERCENT 8 % (BEAKER) (test code = 431) EOSINOPHILS RELATIVE PERCENT 3 % (BEAKER) (test code = 432) BASOPHILS RELATIVE PERCENT 0 % (BEAKER) (test code = 437) NEUTROPHILS ABSOLUTE COUNT 10.93 K/ L 1.78-5.38 H (BEAKER) (test code = 670) LYMPHOCYTES ABSOLUTE COUNT 1.82 K/ L 1.32-3.57 (BEAKER) (test code = 414) MONOCYTES ABSOLUTE COUNT (BEAKER) 1.18 K/ L 0.30-0.82 H (test code = 415) EOSINOPHILS ABSOLUTE COUNT 0.36 K/ L 0.04-0.54 (BEAKER) (test code = 416) BASOPHILS ABSOLUTE COUNT (BEAKER) 0.05 K/ L 0.01-0.08 (test code = 417) IMMATURE GRANULOCYTES-RELATIVE 1 % 0-1 PERCENT (BEAKER) (test code = 2801) POCT-GLUCOSE [id number] 00:25:00 Test Item Value Reference Range Interpretation Comments POC-GLUCOSE METER 114 mg/dL 70-110 H : TESTED A T [facility] 6720 (BEAKER) (test code = [facility], 1538) [address]: Metal Tube Cutter/Techni aaron ID = [id number] for EDISON BELTRAN POCT-GLUCOSE [id number] 17:52:00 Test Item Value Reference Range Interpretation Comments POC-GLUCOSE METER 111 mg/dL 70-110 H : TESTED A T [facility] 6720 (BEAKER) (test code = [facility], 1538) [address]252: Metal Tube Cutter/Techni aaron ID = [id number] for ELADIA WHELAN BASIC METABOLIC [id number] 17:02:00 Test Item Value Reference Range Interpretation Comments SODIUM (BEAKER) 147 meq/L 136-145 H (test code = 381) POTASSIUM (BEAKER) 4.6 meq/L 3.5-5.1 (test code = 379) CHLORIDE (BEAKER) 113 meq/L 98-107 H (test code = 382) CO2 (BEAKER) (test 32 meq/L 22-29 H code = 355) BLOOD UREA NITROGEN 73 mg/dL 7-21 H (BEAKER) (test code = 354) CREATININE (BEAKER) 1.31 mg/dL 0.57-1.25 H (test code = 358) GLUCOSE RANDOM 117 mg/dL 70-105 H (BEAKER) (test code = 652) CALCIUM (BEAKER) 7.9 mg/dL 8.4-10.2 L (test code = 697) EGFR (BEAKER) (test 55 mL/min/1.73 ESTIMA ARLENE GFR IS code = 1092) sq m NOT ACCURATE CREATININE CLEARANCE IN PREDICTING GLOMERULAR FILTRATION RATE . ESTIMATED GFR I S NOT APPLICABLE FOR DIALYSIS PATIEN TS. Metal Tube Cutter ID - [id number] 12:34:00 Test Item Value Reference Range Interpretation Comments PARTIAL THROMBOPLASTIN TIME 82.8 seconds 22.5-36.0 H (BEAKER) (test code = 760) SPUTUM CULTURE + GRAM [id number] 11:50:00 Test Item Value Reference Range Interpretation Comments CULTURE (BEAKER) (test See comment code = 1095) GRAM STAIN RESULT 4+ WBCs (BEAKER) (test code = 1123) GRAM STAIN RESULT 0-5 epithelial cells (BEAKER) (test code = 689177) GRAM STAIN RESULT No organisms seen (BEAKER) (test code = 633916) 2+ YeastNo Normal respiratory rigo presentPOCT-GLUCOSE [id number] 11:42:00 Test Item Value Reference Range Interpretation Comments POC-GLUCOSE METER 117 mg/dL 70-110 H : Pt. refu sed rpt tst: (BEAKER) (test code = TESTED AT [facility] 0215 7318) [facility], [address]: Metal Tube Cutter/Techni aaron ID = [id number] for ELADIA WHELAN BLOOD [id number] 11:00:00 Test Item Value Reference Range Interpretation Comments CULTURE (BEAKER) (test No growth in 5 days code = 1095) BLOOD [id number] 11:00:00 Test Item Value Reference Range Interpretation Comments CULTURE (BEAKER) (test No growth in 5 days code = 1095) RAD, CHEST, 1 VIEW, NON [id number] 06:18:00Reason for exam:->ETT, chest tubesShould this be [...] Signed: Tomasa [place] Verified Date/Time: 03/27/2019 06:18:48 [id number] 06:00:00 Test Item Value Reference Range Interpretation Comments PARTIAL THROMBOPLASTIN TIME 82.3 seconds 22.5-36.0 H (BEAKER) (test code = 760) BASIC METABOLIC [id number] 05:35:00 Test Item Value Reference Range Interpretation Comments SODIUM (BEAKER) 145 meq/L 136-145 (test code = 381) POTASSIUM (BEAKER) 4.4 meq/L 3.5-5.1 (test code = 379) CHLORIDE (BEAKER) 112 meq/L 98-107 H (test code = 382) CO2 (BEAKER) (test 26 meq/L 22-29 code = 355) BLOOD UREA NITROGEN 79 mg/dL 7-21 H (BEAKER) (test code = 354) CREATININE (BEAKER) 1.39 mg/dL 0.57-1.25 H (test code = 358) GLUCOSE RANDOM 120 mg/dL 70-105 H (BEAKER) (test code = 652) CALCIUM (BEAKER) 7.9 mg/dL 8.4-10.2 L (test code = 697) EGFR (BEAKER) (test 51 mL/min/1.73 ESTIMA ARLENE GFR IS code = 1092) sq m NOT ACCURATE CREATININE CLEARANCE IN PREDICTING GLOMERULAR FILTRATION RATE . ESTIMATED GFR I S NOT APPLICABLE FOR DIALYSIS PATIEN TS. Metal Tube Cutter ID - ELISSA MSpecimen slightly [id number] 05:33:00 Test Item Value Reference Range Interpretation Comments PHOSPHORUS (BEAKER) (test code = 4.7 mg/dL 2.3-4.7 604) Metal Tube Cutter ID - ELISSA [id number] 05:33:00 Test Item Value Reference Range Interpretation Comments MAGNESIUM (BEAKER) (test code = 2.2 mg/dL 1.6-2.6 627) Metal Tube Cutter ID - ELISSA MCBC W/PLT COUNT & AUTO [id number] 05:19:00 Test Item Value Reference Range Interpretation Comments WHITE BLOOD CELL COUNT (BEAKER) 15.8 K/ L 3.5-10.5 H (test code = 775) RED BLOOD CELL COUNT (BEAKER) 4.00 M/ L 4.63-6.08 L (test code = 761) HEMOGLOBIN (BEAKER) (test code = 9.9 GM/DL 13.7-17.5 L 410) HEMATOCRIT (BEAKER) (test code = 31.5 % 40.1-51.0 L 411) MEAN CORPUSCULAR VOLUME (BEAKER) 78.8 fL 79.0-92.2 L (test code = 753) MEAN CORPUSCULAR HEMOGLOBIN 24.8 pg 25.7-32.2 L (BEAKER) (test code = 751) MEAN CORPUSCULAR HEMOGLOBIN CONC 31.4 GM/DL 32.3-36.5 L (BEAKER) (test code = 752) RED CELL DISTRIBUTION WIDTH 21.5 % 11.6-14.4 H (BEAKER) (test code = 412) PLATELET COUNT (BEAKER) (test 266 K/CU MM 150-450 code = 756) MEAN PLATELET VOLUME (BEAKER) 11.7 fL 9.4-12.4 (test code = 754) NUCLEATED RED BLOOD CELLS 0 /100 WBC 0-0 (BEAKER) (test code = 413) NEUTROPHILS RELATIVE PERCENT 77 % (BEAKER) (test code = 429) LYMPHOCYTES RELATIVE PERCENT 12 % (BEAKER) (test code = 430) MONOCYTES RELATIVE PERCENT 8 % (BEAKER) (test code = 431) EOSINOPHILS RELATIVE PERCENT 2 % (BEAKER) (test code = 432) BASOPHILS RELATIVE PERCENT 0 % (BEAKER) (test code = 437) NEUTROPHILS ABSOLUTE COUNT 12.15 K/ L 1.78-5.38 H (BEAKER) (test code = 670) LYMPHOCYTES ABSOLUTE COUNT 1.94 K/ L 1.32-3.57 (BEAKER) (test code = 414) MONOCYTES ABSOLUTE COUNT (BEAKER) 1.24 K/ L 0.30-0.82 H (test code = 415) EOSINOPHILS ABSOLUTE COUNT 0.28 K/ L 0.04-0.54 (BEAKER) (test code = 416) BASOPHILS ABSOLUTE COUNT (BEAKER) 0.05 K/ L 0.01-0.08 (test code = 417) IMMATURE GRANULOCYTES-RELATIVE 1 % 0-1 PERCENT (BEAKER) (test code = 2801) POCT-GLUCOSE [id number] 05:17:00 Test Item Value Reference Range Interpretation Comments POC-GLUCOSE METER 118 mg/dL 70-110 H : TESTED A T [facility] 6720 (BEAKER) (test code = [facility], 1538) [address]: Metal Tube Cutter/Techni aaron ID = [id number] for NEDA GARLAND [id number] 20:41:00 Test Item Value Reference Range Interpretation Comments PARTIAL THROMBOPLASTIN TIME 36.4 seconds 22.5-36.0 H (BEAKER) (test code = 760) POCT-GLUCOSE [id number] 18:31:00 Test Item Value Reference Range Interpretation Comments POC-GLUCOSE METER 97 mg/dL 70-110 : TESTED A T [facility] 6720 (BEAKER) (test code = [facility], 1538) [address]: Metal Tube Cutter/Techni aaron ID = [id number] for ISABELA LE BASIC METABOLIC [id number] 18:22:00 Test Item Value Reference Range Interpretation Comments SODIUM (BEAKER) 146 meq/L 136-145 H (test code = 381) POTASSIUM (BEAKER) 4.4 meq/L 3.5-5.1 (test code = 379) CHLORIDE (BEAKER) 112 meq/L 98-107 H (test code = 382) CO2 (BEAKER) (test 31 meq/L 22-29 H code = 355) BLOOD UREA NITROGEN 79 mg/dL 7-21 H (BEAKER) (test code = 354) CREATININE (BEAKER) 1.49 mg/dL 0.57-1.25 H (test code = 358) GLUCOSE RANDOM 124 mg/dL 70-105 H (BEAKER) (test code = 652) CALCIUM (BEAKER) 7.9 mg/dL 8.4-10.2 L (test code = 697) EGFR (BEAKER) (test 47 mL/min/1.73 ESTIMA ARLENE GFR IS code = 1092) sq m NOT ACCURATE CREATININE CLEARANCE IN PREDICTING GLOMERULAR FILTRATION RATE . ESTIMATED GFR I S NOT APPLICABLE FOR DIALYSIS PATIEN TS. Metal Tube Cutter ID - BSSpecimen slightly [id number] 13:23:00 Test Item Value Reference Range Interpretation Comments PARTIAL THROMBOPLASTIN TIME 40.6 seconds 22.5-36.0 H (BEAKER) (test code = 760) POCT-GLUCOSE [id number] 12:06:00 Test Item Value Reference Range Interpretation Comments POC-GLUCOSE METER 113 mg/dL 70-110 H : TESTED A T [facility] 6720 (BEAKER) (test code = ILDA Calvert [facility], 1538) 00134: Metal Tube Cutter/Techni aaron ID = [id number] for IS[address] [id number] 10:59:00 Test Item Value Reference Range Interpretation Comments PARTIAL THROMBOPLASTIN TIME 61.4 seconds 22.5-36.0 H (BEAKER) (test code = 760) POCT-GLUCOSE [id number] 06:53:00 Test Item Value Reference Range Interpretation Comments POC-GLUCOSE METER 112 mg/dL 70-110 H : TESTED A T [facility] 6720 (BEAKER) (test code = ILAD Calvert [facility], 1538) [address]: Metal Tube Cutter/Techni aaron ID = [id number] for FAUSTO CAMPBELL RAD, CHEST, 1 VIEW, NON [id number] 05:01:00Reason for exam:->intubated w/ empyemaShould this be [...] Signed: Nakia Goldstein MDReportVerified Date/Time: 03/26/2019 05:01:34 [id number] 03:48:00 Test Item Value Reference Range Interpretation Comments PHOSPHORUS (BEAKER) (test code = 3.9 mg/dL 2.3-4.7 604) Metal Tube Cutter ID - ELISSA [id number] 03:48:00 Test Item Value Reference Range Interpretation Comments MAGNESIUM (BEAKER) (test code = 2.1 mg/dL 1.6-2.6 627) Metal Tube Cutter ID - ELISSA MBASIC METABOLIC [id number] 03:48:00 Test Item Value Reference Range Interpretation Comments SODIUM (BEAKER) 147 meq/L 136-145 H (test code = 381) POTASSIUM (BEAKER) 4.4 meq/L 3.5-5.1 (test code = 379) CHLORIDE (BEAKER) 112 meq/L 98-107 H (test code = 382) CO2 (BEAKER) (test 31 meq/L 22-29 H code = 355) BLOOD UREA NITROGEN 74 mg/dL 7-21 H (BEAKER) (test code = 354) CREATININE (BEAKER) 1.40 mg/dL 0.57-1.25 H (test code = 358) GLUCOSE RANDOM 120 mg/dL 70-105 H (BEAKER) (test code = 652) CALCIUM (BEAKER) 8.0 mg/dL 8.4-10.2 L (test code = 697) EGFR (BEAKER) (test 51 mL/min/1.73 ESTIMA ARLENE GFR IS code = 1092) sq m NOT ACCURATE CREATININE CLEARANCE IN PREDICTING GLOMERULAR FILTRATION RATE . ESTIMATED GFR I S NOT APPLICABLE FOR DIALYSIS PATIEN TS. Metal Tube Cutter ID - ELISSA MSpecimen slightly [id number] 03:23:00 Test Item Value Reference Range Interpretation Comments PARTIAL THROMBOPLASTIN TIME 98.7 seconds 22.5-36.0 H (BEAKER) (test code = 760) BLOOD GAS, [id number] 03:22:00 Test Item Value Reference Range Interpretation Comments PH ARTERIAL (BEAKER) (test code = 7.48 7.35-7.45 H 383) PCO2 ARTERIAL (BEAKER) (test code 42 mmHg 35-45 = 384) PO2 ARTERIAL (BEAKER) (test code = 128 mmHg 80-90 H 385) O2 SATURATION ARTERIAL (BEAKER) 98.7 % 96.0-97.0 H (test code = 386) HCO3 ARTERIAL (BEAKER) (test code 30 mmol/L 21-29 H = 388) BASE EXCESS ARTERIAL (BEAKER) 6.4 mmol/L -2.0-3.0 H (test code = 387) PATIENT TEMPERATURE (BEAKER) (test 37.6 C code = 1818) FIO2 (BEAKER) (test code = 1819) 30.0 % CBC W/PLT COUNT & AUTO [id number] 03:14:00 Test Item Value Reference Range Interpretation Comments WHITE BLOOD CELL COUNT (BEAKER) 16.5 K/ L 3.5-10.5 H (test code = 775) RED BLOOD CELL COUNT (BEAKER) 4.07 M/ L 4.63-6.08 L (test code = 761) HEMOGLOBIN (BEAKER) (test code = 10.2 GM/DL 13.7-17.5 L 410) HEMATOCRIT (BEAKER) (test code = 31.5 % 40.1-51.0 L 411) MEAN CORPUSCULAR VOLUME (BEAKER) 77.4 fL 79.0-92.2 L (test code = 753) MEAN CORPUSCULAR HEMOGLOBIN 25.1 pg 25.7-32.2 L (BEAKER) (test code = 751) MEAN CORPUSCULAR HEMOGLOBIN CONC 32.4 GM/DL 32.3-36.5 (BEAKER) (test code = 752) RED CELL DISTRIBUTION WIDTH 20.6 % 11.6-14.4 H (BEAKER) (test code = 412) PLATELET COUNT (BEAKER) (test 265 K/CU MM 150-450 code = 756) MEAN PLATELET VOLUME (BEAKER) 12.0 fL 9.4-12.4 (test code = 754) NUCLEATED RED BLOOD CELLS 0 /100 WBC 0-0 (BEAKER) (test code = 413) NEUTROPHILS RELATIVE PERCENT 76 % (BEAKER) (test code = 429) LYMPHOCYTES RELATIVE PERCENT 12 % (BEAKER) (test code = 430) MONOCYTES RELATIVE PERCENT 9 % (BEAKER) (test code = 431) EOSINOPHILS RELATIVE PERCENT 2 % (BEAKER) (test code = 432) BASOPHILS RELATIVE PERCENT 0 % (BEAKER) (test code = 437) NEUTROPHILS ABSOLUTE COUNT 12.53 K/ L 1.78-5.38 H (BEAKER) (test code = 670) LYMPHOCYTES ABSOLUTE COUNT 2.00 K/ L 1.32-3.57 (BEAKER) (test code = 414) MONOCYTES ABSOLUTE COUNT (BEAKER) 1.49 K/ L 0.30-0.82 H (test code = 415) EOSINOPHILS ABSOLUTE COUNT 0.24 K/ L 0.04-0.54 (BEAKER) (test code = 416) BASOPHILS ABSOLUTE COUNT (BEAKER) 0.05 K/ L 0.01-0.08 (test code = 417) IMMATURE GRANULOCYTES-RELATIVE 1 % 0-1 PERCENT (BEAKER) (test code = 2801) POCT-GLUCOSE [id number] 00:13:00 Test Item Value Reference Range Interpretation Comments POC-GLUCOSE METER 115 mg/dL 70-110 H : [facility] ([facility]) (test code = IL[place], 1538) [address]: Metal Tube Cutter/Techni aaron ID = [id number] for Barbara Grigsby BASIC METABOLIC [id number] 20:31:00 Test Item Value Reference Range Interpretation Comments SODIUM (BEAKER) 148 meq/L 136-145 H (test code = 381) POTASSIUM (BEAKER) 4.3 meq/L 3.5-5.1 (test code = 379) CHLORIDE (BEAKER) 112 meq/L 98-107 H (test code = 382) CO2 (BEAKER) (test 32 meq/L 22-29 H code = 355) BLOOD UREA NITROGEN 74 mg/dL 7-21 H (BEAKER) (test code = 354) CREATININE (BEAKER) 1.44 mg/dL 0.57-1.25 H (test code = 358) GLUCOSE RANDOM 129 mg/dL 70-105 H (BEAKER) (test code = 652) CALCIUM (BEAKER) 8.2 mg/dL 8.4-10.2 L (test code = 697) EGFR (BEAKER) (test 49 mL/min/1.73 ESTIMA ARLENE GFR IS code = 1092) sq m NOT ACCURATE CREATININE CLEARANCE IN PREDICTING GLOMERULAR FILTRATION RATE . ESTIMATED GFR I S NOT APPLICABLE FOR DIALYSIS PATIEN TS. Metal Tube Cutter ID - BSSpecimen slightly ictericCT, CHEST, WITHOUT [id number] 18:26:00FINAL REPORT CT of the Chest, abdomen [...] abscess.5. Ascending thoracic aortic aneurysm. Signed: Tomasa Fossort Verified Date/Time: 03/25/2019 18:26:29 Reading Location: [facility] C013Y CT Body Reading Room CT, [id number] 18:26:00FINAL REPORT CT of the Chest, abdomen [...] MDReport Verified Date/Time: 03/25/2019 18:26:29 Reading Location: [facility] C013Y CT Body Reading Room POCT-GLUCOSE [id number] 18:22:00 Test Item Value Reference Range Interpretation Comments POC-GLUCOSE METER 95 mg/dL 70-110 : TESTED A T [facility] 6720 (BEAKER) (test code = IL[place], 1538) [address]: Metal Tube Cutter/Techni aaron ID = [id number] for SAND ERS, ISABELA RAD, CHEST, 1 VIEW, NON [id number] 16:20:00Reason for exam:->Central Line PlacementShould this be [...] place. Signed: Nato Dang MDReport Verified Date/Time: 03/25/2019 16:20:19 Reading Location: [facility] C013W Consult Reading Room [id number] 15:56:00 Test Item Value Reference Range Interpretation Comments PARTIAL THROMBOPLASTIN TIME 83.0 seconds 22.5-36.0 H (BEAKER) (test code = 760) BRONCHIAL CULTURE + GRAM [id number] 12:23:00 Test Item Value Reference Range Interpretation Comments CULTURE (BEAKER) See comment (test code = 1095) GRAM STAIN RESULT 4+ WBCs (BEAKER) (test code = 1123) GRAM STAIN RESULT <1+ yeast with (BEAKER) (test code pseudohyphae = 762224) 2+ Yeast with feetNo Normal respiratory rigo presentBASIC METABOLIC PANEL 2019-03-25 12:08:00 Test Item Value Reference Range Interpretation Comments SODIUM (BEAKER) 148 meq/L 136-145 H (test code = 381) POTASSIUM (BEAKER) 4.3 meq/L 3.5-5.1 (test code = 379) CHLORIDE (BEAKER) 113 meq/L 98-107 H (test code = 382) CO2 (BEAKER) (test 31 meq/L 22-29 H code = 355) BLOOD UREA NITROGEN 71 mg/dL 7-21 H (BEAKER) (test code = 354) CREATININE (BEAKER) 1.30 mg/dL 0.57-1.25 H (test code = 358) GLUCOSE RANDOM 118 mg/dL 70-105 H (BEAKER) (test code = 652) CALCIUM (BEAKER) 8.0 mg/dL 8.4-10.2 L (test code = 697) EGFR (BEAKER) (test 56 mL/min/1.73 ESTIMA ARLENE GFR IS code = 1092) sq m NOT ACCURATE CREATININE CLEARANCE IN PREDICTING GLOMERULAR FILTRATION RATE . ESTIMATED GFR I S NOT APPLICABLE FOR DIALYSIS PATIEN TS. Metal Tube Cutter ID - LENNY MBLOOD GAS, [id number] 12:00:00 Test Item Value Reference Range Interpretation Comments PH ARTERIAL (BEAKER) (test code = 7.48 7.35-7.45 H 383) PCO2 ARTERIAL (BEAKER) (test code 43 mmHg 35-45 = 384) PO2 ARTERIAL (BEAKER) (test code = 247 mmHg 80-90 H 385) O2 SATURATION ARTERIAL (BEAKER) 99.6 % 96.0-97.0 H (test code = 386) HCO3 ARTERIAL (BEAKER) (test code 31 mmol/L 21-29 H = 388) BASE EXCESS ARTERIAL (BEAKER) 6.6 mmol/L -2.0-3.0 H (test code = 387) PATIENT TEMPERATURE (BEAKER) (test 37.3 C code = 1818) FIO2 (BEAKER) (test code = 1819) 30.0 % POCT-GLUCOSE [id number] 11:51:00 Test Item Value Reference Range Interpretation Comments POC-GLUCOSE METER 114 mg/dL 70-110 H : TESTED [facility] 6720 (BEAKER) (test code = IL[place]ERO [place], 1538) [address]: Metal Tube Cutter/Techni aaron ID = [id number] for SA NDERS, ISABELA BODY FLUID CULTURE + GRAM [id number] 10:54:00 Test Item Value Reference Range Interpretation Comments CULTURE (BEAKER) (test code No growth = 1095) GRAM STAIN RESULT (BEAKER) 2+ WBCs (test code = 1123) GRAM STAIN RESULT (BEAKER) No organisms seen (test code = 82225) BODY FLUID CULTURE + GRAM [id number] 10:54:00 Test Item Value Reference Range Interpretation Comments CULTURE (BEAKER) (test code No growth = 1095) GRAM STAIN RESULT (BEAKER) 1+ WBCs (test code = 1123) GRAM STAIN RESULT (BEAKER) No organisms seen (test code = 21488) URINALYSIS W/ REFLEX URINE [id number] 10:03:00 Test Item Value Reference Range Interpretation Comments COLOR (BEAKER) (test code = 470) Yellow CLARITY (BEAKER) (test code = 469) Hazy SPECIFIC GRAVITY UA (BEAKER) (test 1.018 1.001-1.035 code = 468) PH UA (BEAKER) (test code = 467) 5.5 5.0-8.0 PROTEIN UA (BEAKER) (test code = 50 mg/dL Negative A 464) GLUCOSE UA (BEAKER) (test code = Negative Negative 365) KETONES UA (BEAKER) (test code = Negative Negative 371) BILIRUBIN UA (BEAKER) (test code = Negative Negative 462) BLOOD UA (BEAKER) (test code = 461) Small Negative A NITRITE UA (BEAKER) (test code = Negative Negative 465) LEUKOCYTE ESTERASE UA (BEAKER) Large Negative A (test code = 466) UROBILINOGEN UA (BEAKER) (test code 6.0 mg/dL 0.2-1.0 H = 463) RBC UA (BEAKER) (test code = 519) < /HPF WBC UA (BEAKER) (test code = 520) 54 /HPF BACTERIA (BEAKER) (test code = 517) Few MUCUS (BEAKER) (test code = 1574) Few SQUAMOUS EPITHELIAL (BEAKER) (test < /HPF code = 516) HYALINE CASTS (BEAKER) (test code = 1 /LPF 514) SOURCE(BEAKER) (test code = 2795) Metal Tube Cutter ID - [auto]Metal Tube Cutter ID - [id number] 09:58:00 Test Item Value Reference Range Interpretation Comments PARTIAL THROMBOPLASTIN TIME 83.1 seconds 22.5-36.0 H (BEAKER) (test code = 760) BLOOD [id number] 07:00:00 Test Item Value Reference Range Interpretation Comments CULTURE (BEAKER) (test No growth in 5 days code = 1095) RAD, CHEST, 1 VIEW, NON [id number] 06:48:00Reason for exam:->intubated w/ empyemaShould this be [...] Stable surgical changes.Additional findings: None. Signed: [facility] Verified Date/Time: 03/25/2019 06:48:46 POCT-GLUCOSE [id number] 06:17:00 Test Item Value Reference Range Interpretation Comments POC-GLUCOSE METER 101 mg/dL 70-110 : TESTED A T [facility] 6720 (BEAKER) (test code [facility], = 1538) [address]: Metal Tube Cutter/Techni aaron ID = [id number] for SUGU , SHEENAMOL CBC W/PLT COUNT & AUTO [id number] 04:23:00 Test Item Value Reference Range Interpretation Comments WHITE BLOOD CELL COUNT (BEAKER) 16.5 K/ L 3.5-10.5 H (test code = 775) RED BLOOD CELL COUNT (BEAKER) 4.28 M/ L 4.63-6.08 L (test code = 761) HEMOGLOBIN (BEAKER) (test code = 10.6 GM/DL 13.7-17.5 L 410) HEMATOCRIT (BEAKER) (test code = 33.2 % 40.1-51.0 L 411) MEAN CORPUSCULAR VOLUME (BEAKER) 77.6 fL 79.0-92.2 L (test code = 753) MEAN CORPUSCULAR HEMOGLOBIN 24.8 pg 25.7-32.2 L (BEAKER) (test code = 751) MEAN CORPUSCULAR HEMOGLOBIN CONC 31.9 GM/DL 32.3-36.5 L (BEAKER) (test code = 752) RED CELL DISTRIBUTION WIDTH 21.1 % 11.6-14.4 H (BEAKER) (test code = 412) PLATELET COUNT (BEAKER) (test 230 K/CU MM 150-450 code = 756) MEAN PLATELET VOLUME (BEAKER) 12.8 fL 9.4-12.4 H (test code = 754) NUCLEATED RED BLOOD CELLS 0 /100 WBC 0-0 (BEAKER) (test code = 413) NEUTROPHILS RELATIVE PERCENT 79 % (BEAKER) (test code = 429) LYMPHOCYTES RELATIVE PERCENT 10 % (BEAKER) (test code = 430) MONOCYTES RELATIVE PERCENT 8 % (BEAKER) (test code = 431) EOSINOPHILS RELATIVE PERCENT 2 % (BEAKER) (test code = 432) BASOPHILS RELATIVE PERCENT 0 % (BEAKER) (test code = 437) NEUTROPHILS ABSOLUTE COUNT 12.98 K/ L 1.78-5.38 H (BEAKER) (test code = 670) LYMPHOCYTES ABSOLUTE COUNT 1.72 K/ L 1.32-3.57 (BEAKER) (test code = 414) MONOCYTES ABSOLUTE COUNT (BEAKER) 1.33 K/ L 0.30-0.82 H (test code = 415) EOSINOPHILS ABSOLUTE COUNT 0.29 K/ L 0.04-0.54 (BEAKER) (test code = 416) BASOPHILS ABSOLUTE COUNT (BEAKER) 0.05 K/ L 0.01-0.08 (test code = 417) IMMATURE GRANULOCYTES-RELATIVE 1 % 0-1 PERCENT (BEAKER) (test code = 2801) BLOOD [id number] 04:02:00 Test Item Value Reference Range Interpretation Comments CULTURE (BEAKER) (test No growth in 5 days code = 1095) BASIC METABOLIC [id number] 03:59:00 Test Item Value Reference Range Interpretation Comments SODIUM (BEAKER) 146 meq/L 136-145 H (test code = 381) POTASSIUM (BEAKER) 4.3 meq/L 3.5-5.1 (test code = 379) CHLORIDE (BEAKER) 112 meq/L 98-107 H (test code = 382) CO2 (BEAKER) (test 29 meq/L 22-29 code = 355) BLOOD UREA NITROGEN 72 mg/dL 7-21 H (BEAKER) (test code = 354) CREATININE (BEAKER) 1.29 mg/dL 0.57-1.25 H (test code = 358) GLUCOSE RANDOM 113 mg/dL 70-105 H (BEAKER) (test code = 652) CALCIUM (BEAKER) 7.8 mg/dL 8.4-10.2 L (test code = 697) EGFR (BEAKER) (test 56 mL/min/1.73 ESTIMA ARLENE GFR IS code = 1092) sq m NOT ACCURATE CREATININE CLEARANCE IN PREDICTING GLOMERULAR FILTRATION RATE . ESTIMATED GFR I S NOT APPLICABLE FOR DIALYSIS PATIEN TS. Metal Tube Cutter ID - ELISSA MSpecimen slightly [id number] 03:57:00 Test Item Value Reference Range Interpretation Comments PHOSPHORUS (BEAKER) (test code = 2.8 mg/dL 2.3-4.7 604) Metal Tube Cutter ID - ELISSA [id number] 03:57:00 Test Item Value Reference Range Interpretation Comments MAGNESIUM (BEAKER) (test code = 2.0 mg/dL 1.6-2.6 627) Metal Tube Cutter ID - ELISSA [id number] 03:30:00 Test Item Value Reference Range Interpretation Comments PARTIAL THROMBOPLASTIN TIME 63.6 seconds 22.5-36.0 H (BEAKER) (test code = 760) POCT-GLUCOSE [id number] 00:15:00 Test Item Value Reference Range Interpretation Comments POC-GLUCOSE METER 110 mg/dL 70-110 : TESTED A T [facility] 6720 (BEAKER) (test code [facility], = 1538) [address]: Metal Tube Cutter/Techni aaron ID = [id number] for SUGU , SHEENAMOL [id number] 21:11:00 Test Item Value Reference Range Interpretation Comments PARTIAL THROMBOPLASTIN TIME 68.8 seconds 22.5-36.0 H (BEAKER) (test code = 760) BASIC METABOLIC [id number] 21:09:00 Test Item Value Reference Range Interpretation Comments SODIUM (BEAKER) 147 meq/L 136-145 H (test code = 381) POTASSIUM (BEAKER) 4.3 meq/L 3.5-5.1 (test code = 379) CHLORIDE (BEAKER) 111 meq/L 98-107 H (test code = 382) CO2 (BEAKER) (test 33 meq/L 22-29 H code = 355) BLOOD UREA NITROGEN 66 mg/dL 7-21 H (BEAKER) (test code = 354) CREATININE (BEAKER) 1.44 mg/dL 0.57-1.25 H (test code = 358) GLUCOSE RANDOM 121 mg/dL 70-105 H (BEAKER) (test code = 652) CALCIUM (BEAKER) 8.3 mg/dL 8.4-10.2 L (test code = 697) EGFR (BEAKER) (test 49 mL/min/1.73 ESTIMA ARLENE GFR IS code = 1092) sq m NOT ACCURATE CREATININE CLEARANCE IN PREDICTING GLOMERULAR FILTRATION RATE . ESTIMATED GFR I S NOT APPLICABLE FOR DIALYSIS PATIEN TS. Metal Tube Cutter ID - JOSE Nona slightly ictericRAD, ABDOMEN/KUB, 1 VIEW AP 2019-03-24 19:29:00Reason for exam:->NGT fell outAddendum BeginsREPORT STATUS:A Two views were obtained. Signed: Nova Salazareport Verified Date/Time: 03/24/2019 19:29:02 Reading Location: [address] Consult Reading RoomAddendum EndsFINAL REPORT Abdomen. [...] MDReport Verified Date/Time: 03/24/2019 19:24:17 Reading Location: [address] Consult Reading Room POCT- GLUCOSE [id number] 18:19:00 Test Item Value Reference Range Interpretation Comments POC-GLUCOSE METER 97 mg/dL 70-110 : [facility] ([facility]ER[facility] (test code = IL[place], 1538) [address]: Metal Tube Cutter/Techni aaron ID = [id number] for SAND ERS, ISABELA RAD, CHEST, 1 VIEW, NON [id number] 18:11:00Reason for exam:->Chest tube placement, possible dislodgementShould [...] MDReport Verified Date/Time: 03/24/2019 18:11:57 Reading Location: [address] Consult Reading Room BODY FLUID CULTURE + GRAM [id number] 16:09:00 Test Item Value Reference Range Interpretation Comments CULTURE (BEAKER) (test No growth code = 1095) GRAM STAIN RESULT 1+ White blood cells (BEAKER) (test code = seen 1123) GRAM STAIN RESULT No organisms seen (BEAKER) (test code = 99857) BRONCHIAL CULTURE + GRAM [id number] 14:05:00 Test Item Value Reference Range Interpretation Comments CULTURE (BEAKER) (test code No growth = 1095) GRAM STAIN RESULT (BEAKER) <1+ WBCs (test code = 1123) GRAM STAIN RESULT (BEAKER) No organisms seen (test code = 23726) BASIC METABOLIC [id number] 13:09:00 Test Item Value Reference Range Interpretation Comments SODIUM (BEAKER) 146 meq/L 136-145 H (test code = 381) POTASSIUM (BEAKER) 4.3 meq/L 3.5-5.1 (test code = 379) CHLORIDE (BEAKER) 112 meq/L 98-107 H (test code = 382) CO2 (BEAKER) (test 31 meq/L 22-29 H code = 355) BLOOD UREA NITROGEN 63 mg/dL 7-21 H (BEAKER) (test code = 354) CREATININE (BEAKER) 1.42 mg/dL 0.57-1.25 H (test code = 358) GLUCOSE RANDOM 119 mg/dL 70-105 H (BEAKER) (test code = 652) CALCIUM (BEAKER) 8.1 mg/dL 8.4-10.2 L (test code = 697) EGFR (BEAKER) (test 50 mL/min/1.73 ESTIMA ARLENE GFR IS code = 1092) sq m NOT ACCURATE CREATININE CLEARANCE IN PREDICTING GLOMERULAR FILTRATION RATE . ESTIMATED GFR I S NOT APPLICABLE FOR DIALYSIS PATIEN TS. Metal Tube Cutter ID - SONIA [id number] 13:04:00 Test Item Value Reference Range Interpretation Comments PARTIAL THROMBOPLASTIN TIME 58.9 seconds 22.5-36.0 H (BEAKER) (test code = 760) EEG EXTENDED MONITORING, 40-60 [id number] 12:32:00For STAT EEG- after 5 PM weekdays, weekends and holidays, page the on-call EEG TechReason for exam:-& gt;Concern for Subclinical StatusShould this be performed at the bedside?->YesDate(s) of EE03/24/2019 DATE OF REPORT: 03/24/2019ACC: [id number] Number: [id number] Location: Inpatient ICUStart time: 03/24/2019 10:42Stop time: 03/24/2019 11:23ICD-10: R56.9 CPT Code: 31471 HISTORY: 63 y.o. male with hypertension, diastolic heart failure, chronic kidney disease who was transferred to [facility] for effusions and [...] inflammation, aftermath of earlier seizure activity, other FRONT OFFICE ASSISTANT insult, or toxic-metabolic derangements. An EEG without epileptiform discharges does not exclude the possibility of epilepsy. If the clinical suspicion of epilepsy remains, consider additional EEG recordings. Nando Metz MDNeurophysiology Fellow Elia Martinez M.D., FACDEB, FAAN, FAESProfessor of Neurology, [facility] [place]Director, [facility] Epilepsy CenterJohn Saab Neurophysiology Lab at [place], [place] -GLUCOSE [id number] 12:29:00 Test Item Value Reference Range Interpretation Comments POC-GLUCOSE METER 109 mg/dL 70-110 : TESTED A T [facility] 6720 (YELITZA) (test code = ILDA [place]BL[place], 1538) [address]: Metal Tube Cutter/Techni aaron ID = [id number] for SA ISABELA MONTILLA BLOOD GAS, [id number] 12:11:00 Test Item Value Reference Range Interpretation Comments PH ARTERIAL (YELITZA) (test code = 7.47 7.35-7.45 H 383) PCO2 ARTERIAL (BEAKER) (test code 46 mmHg 35-45 H = 384) PO2 ARTERIAL (BEAKER) (test code = 96 mmHg 80-90 H 385) O2 SATURATION ARTERIAL (BEAKER) 97.7 % 96.0-97.0 H (test code = 386) HCO3 ARTERIAL (BEAKER) (test code 33 mmol/L 21-29 H = 388) BASE EXCESS ARTERIAL (BEAKER) 7.9 mmol/L -2.0-3.0 H (test code = 387) PATIENT TEMPERATURE (BEAKER) (test 36.8 C code = 1818) FIO2 (BEAKER) (test code = 1819) 30.0 % POCT-GLUCOSE [id number] 06:09:00 Test Item Value Reference Range Interpretation Comments POC-GLUCOSE METER 122 mg/dL 70-110 H : [facility] ([facility] (test code = ILDA [place], 1538) [address]: Metal Tube Cutter/Techni aaron ID = [id number] for EDISON BELTRAN BLOOD GAS, [id number] 05:35:00 Test Item Value Reference Range Interpretation Comments PH ARTERIAL (BEAKER) (test code = 7.50 7.35-7.45 H 383) PCO2 ARTERIAL (BEAKER) (test code 40 mmHg 35-45 = 384) PO2 ARTERIAL (BEAKER) (test code = 107 mmHg 80-90 H 385) O2 SATURATION ARTERIAL (BEAKER) 98.3 % 96.0-97.0 H (test code = 386) HCO3 ARTERIAL (BEAKER) (test code 31 mmol/L 21-29 H = 388) BASE EXCESS ARTERIAL (BEAKER) 6.9 mmol/L -2.0-3.0 H (test code = 387) PATIENT TEMPERATURE (BEAKER) (test 37.0 C code = 1818) FIO2 (BEAKER) (test code = 1819) 30.0 % [id number] 05:09:00 Test Item Value Reference Range Interpretation Comments PHOSPHORUS (BEAKER) (test code = 3.2 mg/dL 2.3-4.7 604) Metal Tube Cutter ID - SANDRA [id number] 05:09:00 Test Item Value Reference Range Interpretation Comments MAGNESIUM (BEAKER) (test code = 1.9 mg/dL 1.6-2.6 627) Metal Tube Cutter ID Sultana FLORES WBASIC METABOLIC [id number] 05:09:00 Test Item Value Reference Range Interpretation Comments SODIUM (BEAKER) 147 meq/L 136-145 H (test code = 381) POTASSIUM (BEAKER) 4.2 meq/L 3.5-5.1 (test code = 379) CHLORIDE (BEAKER) 114 meq/L 98-107 H (test code = 382) CO2 (BEAKER) (test 30 meq/L 22-29 H code = 355) BLOOD UREA NITROGEN 61 mg/dL 7-21 H (BEAKER) (test code = 354) CREATININE (BEAKER) 1.52 mg/dL 0.57-1.25 H (test code = 358) GLUCOSE RANDOM 120 mg/dL 70-105 H (BEAKER) (test code = 652) CALCIUM (BEAKER) 8.1 mg/dL 8.4-10.2 L (test code = 697) EGFR (BEAKER) (test 46 mL/min/1.73 ESTIMA ARLENE GFR IS code = 1092) sq m NOT ACCURATE CREATININE CLEARANCE IN PREDICTING GLOMERULAR FILTRATION RATE . ESTIMATED GFR I S NOT APPLICABLE FOR DIALYSIS PATIEN TS. Metal Tube Cutter ID Sultana FLORES WSpecimen slightly [id number] 04:59:00 Test Item Value Reference Range Interpretation Comments PARTIAL THROMBOPLASTIN TIME 61.1 seconds 22.5-36.0 H (BEAKER) (test code = 760) CBC W/PLT COUNT & AUTO [id number] 04:52:00 Test Item Value Reference Range Interpretation Comments WHITE BLOOD CELL COUNT (BEAKER) 18.3 K/ L 3.5-10.5 H (test code = 775) RED BLOOD CELL COUNT (BEAKER) 4.19 M/ L 4.63-6.08 L (test code = 761) HEMOGLOBIN (BEAKER) (test code = 10.1 GM/DL 13.7-17.5 L 410) HEMATOCRIT (BEAKER) (test code = 32.3 % 40.1-51.0 L 411) MEAN CORPUSCULAR VOLUME (BEAKER) 77.1 fL 79.0-92.2 L (test code = 753) MEAN CORPUSCULAR HEMOGLOBIN 24.1 pg 25.7-32.2 L (BEAKER) (test code = 751) MEAN CORPUSCULAR HEMOGLOBIN CONC 31.3 GM/DL 32.3-36.5 L (BEAKER) (test code = 752) RED CELL DISTRIBUTION WIDTH 19.8 % 11.6-14.4 H (BEAKER) (test code = 412) PLATELET COUNT (BEAKER) (test 252 K/CU MM 150-450 code = 756) MEAN PLATELET VOLUME (BEAKER) 12.2 fL 9.4-12.4 (test code = 754) NUCLEATED RED BLOOD CELLS 0 /100 WBC 0-0 (BEAKER) (test code = 413) NEUTROPHILS RELATIVE PERCENT 82 % (BEAKER) (test code = 429) LYMPHOCYTES RELATIVE PERCENT 9 % (BEAKER) (test code = 430) MONOCYTES RELATIVE PERCENT 8 % (BEAKER) (test code = 431) EOSINOPHILS RELATIVE PERCENT 1 % (BEAKER) (test code = 432) BASOPHILS RELATIVE PERCENT 0 % (BEAKER) (test code = 437) NEUTROPHILS ABSOLUTE COUNT 15.00 K/ L 1.78-5.38 H (BEAKER) (test code = 670) LYMPHOCYTES ABSOLUTE COUNT 1.56 K/ L 1.32-3.57 (BEAKER) (test code = 414) MONOCYTES ABSOLUTE COUNT (BEAKER) 1.37 K/ L 0.30-0.82 H (test code = 415) EOSINOPHILS ABSOLUTE COUNT 0.17 K/ L 0.04-0.54 (BEAKER) (test code = 416) BASOPHILS ABSOLUTE COUNT (BEAKER) 0.04 K/ L 0.01-0.08 (test code = 417) IMMATURE GRANULOCYTES-RELATIVE 1 % 0-1 PERCENT (BEAKER) (test code = 2801) RAD, CHEST, 1 VIEW, NON [id number] 03:57:00Reason for exam:->intubated w/ empyemaShould this be [...] MDReport Verified Date/Time: 03/24/2019 03:57:49 VANCOMYCIN LEVEL, [id number] 01:53:00 Test Item Value Reference Range Interpretation Comments VANCOMYCIN TROUGH (BEAKER) (test 17.9 ug/mL 10.0-20.0 code = 522) Metal Tube Cutter ID - SANDRA WCT, BRAIN, WITHOUT [id number] 01:31:00FINAL REPORT EXAM: CT head without contrast. [...] Goldstein MDReport Verified Date/Time: 03/24/2019 01:31:09 POCT-GLUCOSE [id number] 00:17:00 Test Item Value Reference Range Interpretation Comments POC-GLUCOSE METER 122 mg/dL 70-110 H : TESTED A T [facility] (BEAKER) (test code = DOROTAJAVI ROBLERO ND, 1538) [address]59: Metal Tube Cutter/Techni aaron ID = [id number] for EDISON BELTRAN BASIC METABOLIC [id number] 21:04:00 Test Item Value Reference Range Interpretation Comments SODIUM (BEAKER) 146 meq/L 136-145 H (test code = 381) POTASSIUM (BEAKER) 4.2 meq/L 3.5-5.1 (test code = 379) CHLORIDE (BEAKER) 111 meq/L 98-107 H (test code = 382) CO2 (BEAKER) (test 29 meq/L 22-29 code = 355) BLOOD UREA NITROGEN 57 mg/dL 7-21 H (BEAKER) (test code = 354) CREATININE (BEAKER) 1.55 mg/dL 0.57-1.25 H (test code = 358) GLUCOSE RANDOM 116 mg/dL 70-105 H (BEAKER) (test code = 652) CALCIUM (BEAKER) 7.8 mg/dL 8.4-10.2 L (test code = 697) EGFR (BEAKER) (test 45 mL/min/1.73 ESTIMA ARLENE GFR IS code = 1092) sq m NOT ACCURATE CREATININE CLEARANCE IN PREDICTING GLOMERULAR FILTRATION RATE . ESTIMATED GFR I S NOT APPLICABLE FOR DIALYSIS PATIEN TS. Metal Tube Cutter ID - KENNSleana milton ictericBASIC METABOLIC [id number] 16:30:00 Test Item Value Reference Range Interpretation Comments SODIUM (BEAKER) 148 meq/L 136-145 H (test code = 381) POTASSIUM (BEAKER) 4.2 meq/L 3.5-5.1 (test code = 379) CHLORIDE (BEAKER) 111 meq/L 98-107 H (test code = 382) CO2 (BEAKER) (test 32 meq/L 22-29 H code = 355) BLOOD UREA NITROGEN 56 mg/dL 7-21 H (BEAKER) (test code = 354) CREATININE (BEAKER) 1.60 mg/dL 0.57-1.25 H (test code = 358) GLUCOSE RANDOM 117 mg/dL 70-105 H (BEAKER) (test code = 652) CALCIUM (BEAKER) 7.9 mg/dL 8.4-10.2 L (test code = 697) EGFR (BEAKER) (test 44 mL/min/1.73 ESTIMA ARLENE GFR IS code = 1092) sq m NOT ACCURATE CREATININE CLEARANCE IN PREDICTING GLOMERULAR FILTRATION RATE . ESTIMATED GFR I S NOT APPLICABLE FOR DIALYSIS PATIEN TS. Metal Tube Cutter ID - ALMA WHEPATIC FUNCTION [id number] 16:22:00 Test Item Value Reference Range Interpretation Comments TOTAL PROTEIN (BEAKER) (test code = 5.3 gm/dL 6.0-8.3 L 770) ALBUMIN (BEAKER) (test code = 1145) 2.4 g/dL 3.5-5.0 L BILIRUBIN TOTAL (BEAKER) (test code 2.6 mg/dL 0.2-1.2 H = 377) BILIRUBIN DIRECT (BEAKER) (test 1.7 mg/dL 0.1-0.5 H code = 706) ALKALINE PHOSPHATASE (BEAKER) (test 59 U/L 40-150 code = 346) AST (SGOT) (BEAKER) (test code = 24 U/L 5-34 353) ALT (SGPT) (BEAKER) (test code = 7 U/L 6-55 347) Metal Tube Cutter ID - ALMA [id number] 16:05:00 Test Item Value Reference Range Interpretation Comments AMMONIA (BEAKER) (test code = 348) 29 mol/L 18-72 Metal Tube Cutter ID - ALMA WMRSA [id number] 11:27:00 Test Item Value Reference Range Interpretation Comments CULTURE (BEAKER) (test code No MRSA isolated = 1095) CBC W/PLT COUNT & AUTO [id number] 10:18:00 Test Item Value Reference Range Interpretation Comments WHITE BLOOD CELL COUNT (BEAKER) 24.4 K/ L 3.5-10.5 H (test code = 775) RED BLOOD CELL COUNT (BEAKER) 4.32 M/ L 4.63-6.08 L (test code = 761) HEMOGLOBIN (BEAKER) (test code = 10.4 GM/DL 13.7-17.5 L 410) HEMATOCRIT (BEAKER) (test code = 33.1 % 40.1-51.0 L 411) MEAN CORPUSCULAR VOLUME (BEAKER) 76.6 fL 79.0-92.2 L (test code = 753) MEAN CORPUSCULAR HEMOGLOBIN 24.1 pg 25.7-32.2 L (BEAKER) (test code = 751) MEAN CORPUSCULAR HEMOGLOBIN CONC 31.4 GM/DL 32.3-36.5 L (BEAKER) (test code = 752) RED CELL DISTRIBUTION WIDTH 19.4 % 11.6-14.4 H (BEAKER) (test code = 412) PLATELET COUNT (BEAKER) (test 250 K/CU MM 150-450 code = 756) MEAN PLATELET VOLUME (BEAKER) 11.9 fL 9.4-12.4 (test code = 754) NUCLEATED RED BLOOD CELLS 0 /100 WBC 0-0 (BEAKER) (test code = 413) (CELLAVISION MANUAL DIFF)2019-03-23 10:18:00 Test Item Value Reference Range Interpretation Comments NEUTROPHILS - REL 93 % (CELLAVISION)(BEAKER) (test code = 2816) LYMPHOCYTES - REL 4 % (CELLAVISION)(BEAKER) (test code = 2817) MONOCYTES - REL 2 % (CELLAVISION)(BEAKER) (test code = 2818) ATYPICAL LYMPHOCYTES - REL 1 % 0-0 H (CELLAVISION)(BEAKER) (test code = 2829) NEUTROPHILS - ABS 22.69 K/ul 1.78-5.38 H (CELLAVISION)(BEAKER) (test code = 2830) LYMPHOCYTES - ABS 0.98 K/ul 1.32-3.57 L (CELLAVISION)(BEAKER) (test code = 2831) MONOCYTES - ABS 0.49 K/uL 0.30-0.82 (CELLAVISION)(BEAKER) (test code = 2832) ATYPICAL LYMPHOCYTES - ABS 0.24 K/uL 0.00-0.00 H (CELLAVISION)(BEAKER) (test code = 2858) TOTAL COUNTED (BEAKER) (test code 100 = 1351) WBC MORPHOLOGY (BEAKER) (test code Normal = 487) PLT MORPHOLOGY (BEAKER) (test code Normal = 486) ANISOCYTOSIS (BEAKER) (test code = 1+ few 961) POIKILOCYTES (BEAKER) (test code = 1+ few 966) OVALOCYTES (BEAKER) (test code = 1+ few 477) BAN CELLS (BEAKER) (test code = 1+ few 474) ARTIFACT (CELLAVISION)(BEAKER) Present (test code = 3432) PLATELET CONCENTRATION Adequate (CELLAVISION)(BEAKER) (test code = 3438) Metal Tube Cutter ID Sultana Sierra OverholtUser comments: Slide comments:SPIN/CONCENTRATION [id number] 10:03:00 Test Item Value Reference Range Interpretation Comments CONCENTRATION CHARGED (BEAKER) (test Done code = 2657) SPIN/CONCENTRATION [id number] 10:03:00 Test Item Value Reference Range Interpretation Comments CONCENTRATION CHARGED (BEAKER) (test Done code = 2657) SPIN/CONCENTRATION [id number] 10:03:00 Test Item Value Reference Range Interpretation Comments CONCENTRATION CHARGED (BEAKER) (test Done code = 2657) [id number] 07:00:00 Test Item Value Reference Range Interpretation Comments PARTIAL THROMBOPLASTIN TIME 70.1 seconds 22.5-36.0 H (BEAKER) (test code = 760) [id number] 06:46:00 Test Item Value Reference Range Interpretation Comments PHOSPHORUS (BEAKER) (test code = 2.8 mg/dL 2.3-4.7 604) Metal Tube Cutter ID Sultana FLORES [id number] 06:46:00 Test Item Value Reference Range Interpretation Comments MAGNESIUM (BEAKER) (test code = 1.9 mg/dL 1.6-2.6 627) Metal Tube Cutter ID Sultana FLORES WBASIC METABOLIC [id number] 06:46:00 Test Item Value Reference Range Interpretation Comments SODIUM (BEAKER) 146 meq/L 136-145 H (test code = 381) POTASSIUM (BEAKER) 3.7 meq/L 3.5-5.1 (test code = 379) CHLORIDE (BEAKER) 110 meq/L 98-107 H (test code = 382) CO2 (BEAKER) (test 30 meq/L 22-29 H code = 355) BLOOD UREA NITROGEN 51 mg/dL 7-21 H (BEAKER) (test code = 354) CREATININE (BEAKER) 1.50 mg/dL 0.57-1.25 H (test code = 358) GLUCOSE RANDOM 138 mg/dL 70-105 H (BEAKER) (test code = 652) CALCIUM (BEAKER) 8.0 mg/dL 8.4-10.2 L (test code = 697) EGFR (BEAKER) (test 47 mL/min/1.73 ESTIMA ARLENE GFR IS code = 1092) sq m NOT ACCURATE CREATININE CLEARANCE IN PREDICTING GLOMERULAR FILTRATION RATE . ESTIMATED GFR I S NOT APPLICABLE FOR DIALYSIS PATIEN TS. Metal Tube Cutter ID - SANDRA Christiansen slightly ictericBLOOD GAS, [id number] 06:18:00 Test Item Value Reference Range Interpretation Comments PH ARTERIAL (BEAKER) (test code = 7.53 7.35-7.45 H 383) PCO2 ARTERIAL (BEAKER) (test code 38 mmHg 35-45 = 384) PO2 ARTERIAL (BEAKER) (test code = 83 mmHg 80-90 385) O2 SATURATION ARTERIAL (BEAKER) 97.2 % 96.0-97.0 H (test code = 386) HCO3 ARTERIAL (BEAKER) (test code 31 mmol/L 21-29 H = 388) BASE EXCESS ARTERIAL (BEAKER) 7.8 mmol/L -2.0-3.0 H (test code = 387) PATIENT TEMPERATURE (BEAKER) (test 37.0 C code = 1818) FIO2 (BEAKER) (test code = 1819) 30.0 % POCT-GLUCOSE [id number] 05:36:00 Test Item Value Reference Range Interpretation Comments POC-GLUCOSE METER 122 mg/dL 70-110 H : TESTED A T [facility] 6720 (BEAKER) (test code = [facility], 1538) [id number]: Metal Tube Cutter/Techni aaron ID = [id number] for EDISON BELTRAN [id number] 00:47:00 Test Item Value Reference Range Interpretation Comments PARTIAL THROMBOPLASTIN TIME 62.9 seconds 22.5-36.0 H (BEAKER) (test code = 760) POCT-GLUCOSE [id number] 00:39:00 Test Item Value Reference Range Interpretation Comments POC-GLUCOSE METER 131 mg/dL 70-110 H : TESTED A T [facility] 6720 (BEAKER) (test code = [facility] [employer] [facility], 1538) [id number]: Metal Tube Cutter/Techni aaron ID = [id number] for EDISON BELTRAN BASIC METABOLIC [id number] 20:51:00 Test Item Value Reference Range Interpretation Comments SODIUM (BEAKER) 147 meq/L 136-145 H (test code = 381) POTASSIUM (BEAKER) 4.2 meq/L 3.5-5.1 (test code = 379) CHLORIDE (BEAKER) 108 meq/L 98-107 H (test code = 382) CO2 (BEAKER) (test 35 meq/L 22-29 H code = 355) BLOOD UREA NITROGEN 43 mg/dL 7-21 H (BEAKER) (test code = 354) CREATININE (BEAKER) 1.59 mg/dL 0.57-1.25 H (test code = 358) GLUCOSE RANDOM 133 mg/dL 70-105 H (BEAKER) (test code = 652) CALCIUM (BEAKER) 8.2 mg/dL 8.4-10.2 L (test code = 697) EGFR (BEAKER) (test 44 mL/min/1.73 ESTIMA ARLENE GFR IS code = 1092) sq m NOT ACCURATE CREATININE CLEARANCE IN PREDICTING GLOMERULAR FILTRATION RATE . ESTIMATED GFR I S NOT APPLICABLE FOR DIALYSIS PATIEN TS. Metal Tube Cutter ID - ELISSA MSpecimen slightly ictericPT/[id number] 17:40:00 Test Item Value Reference Range Interpretation Comments PROTIME (BEAKER) (test code = 20.2 seconds 11.9-14.2 H 759) INR (BEAKER) (test code = 370) 1.8 <=5.9 PARTIAL THROMBOPLASTIN TIME 38.3 seconds 22.5-36.0 H (BEAKER) (test code = 760) Effective 07/24/2018: PT Reference Range ChangeNew: 11.9-14.2 Previous: 11.7- 14.7RECOMMENDED COUMADIN/WARFARIN INR THERAPY RANGESSTANDARD DOSE: 2.0-3.0 Includes: PROPHYLAXIS for venous thrombosis, systemic embolization; TREATMENT for venous thrombosis and/or pulmonary embolus.HIGH RISK: Target INR is2.5-3.5 for patients wiht mechanical heart valves.BODY FLUID CELL COUNT WITH [id number] 17:31:00 Test Item Value Reference Range Interpretation Comments APPEARANCE FLUID (BEAKER) (test Bloody Clear A code = 510) COLOR FLUID (BEAKER) (test code Red Colorless, Straw A = 511) RBC FLUID (BEAKER) (test code = 31783 /cu mm <=1 H 513) ADJUSTED WBC FLUID (BEAKER) 8467 /cu mm <=5 H (test code = 1691) LINING CELLS (BEAKER) (test 85 /cu mm <=1 H code = 1590) NEUTROPHILS FLUID (BEAKER) 94 % (test code = 1656) LYMPHS FLUID (BEAKER) (test 4 % code = 488) MONO/MACROPHAGE FLUID (BEAKER) 1 % (test code = 489) EOSINOPHILS FLUID (BEAKER) 1 % (test code = 491) BASO FLUID (BEAKER) (test code 0 % = 492) CONTAINER BODY FLUID (BEAKER) EDTA Tube (test code = 2873) BODY FLUID CELL COUNT WITH [id number] 17:22:00 Test Item Value Reference Range Interpretation Comments APPEARANCE FLUID (BEAKER) (test Bloody Clear A code = 510) COLOR FLUID (BEAKER) (test code Red Colorless, Straw A = 511) RBC FLUID (BEAKER) (test code = 83046 /cu mm <=1 H 513) ADJUSTED WBC FLUID (BEAKER) 47983 /cu mm <=5 H (test code = 1691) LINING CELLS (BEAKER) (test 364 /cu mm <=1 H code = 1590) NEUTROPHILS FLUID (BEAKER) 85 % (test code = 1656) LYMPHS FLUID (BEAKER) (test 4 % code = 488) MONO/MACROPHAGE FLUID (BEAKER) 10 % (test code = 489) EOSINOPHILS FLUID (BEAKER) 1 % (test code = 491) BASO FLUID (BEAKER) (test code 0 % = 492) CONTAINER BODY FLUID (BEAKER) EDTA Tube (test code = 2873) SPUTUM CULTURE + GRAM [id number] 13:08:00 Test Item Value Reference Range Interpretation Comments CULTURE (BEAKER) (test See comment code = 1095) GRAM STAIN RESULT 2+ WBCs (BEAKER) (test code = 1123) GRAM STAIN RESULT 0-5 epithelial cells (BEAKER) (test code = 866136) GRAM STAIN RESULT No organisms seen (BEAKER) (test code = 056995) <1+ YeastNo Normal respiratory rigo presentBASIC METABOLIC [id number] 10:04:00 Test Item Value Reference Range Interpretation Comments SODIUM (BEAKER) 147 meq/L 136-145 H (test code = 381) POTASSIUM (BEAKER) 3.5 meq/L 3.5-5.1 (test code = 379) CHLORIDE (BEAKER) 105 meq/L 98-107 (test code = 382) CO2 (BEAKER) (test 34 meq/L 22-29 H code = 355) BLOOD UREA NITROGEN 39 mg/dL 7-21 H (BEAKER) (test code = 354) CREATININE (BEAKER) 1.42 mg/dL 0.57-1.25 H (test code = 358) GLUCOSE RANDOM 101 mg/dL 70-105 (BEAKER) (test code = 652) CALCIUM (BEAKER) 8.6 mg/dL 8.4-10.2 (test code = 697) EGFR (BEAKER) (test 50 mL/min/1.73 ESTIMA ARLENE GFR IS code = 1092) sq m NOT ACCURATE CREATININE CLEARANCE IN PREDICTING GLOMERULAR FILTRATION RATE . ESTIMATED GFR I S NOT APPLICABLE FOR DIALYSIS PATIEN TS. Metal Tube Cutter ID - ELISSA MSpecimen slightly [id number] 10:02:00 Test Item Value Reference Range Interpretation Comments PARTIAL THROMBOPLASTIN TIME 35.5 seconds 22.5-36.0 (BEAKER) (test code = 760) 6 hours after starting heparin infusion and as indicated per sliding scaleRAD, CHEST, 1 VIEW, NON [id number] 09:09:00Reason for exam:->intubated, bilateral chest tubesShould this [...] IMPRESSION: No significant change. Signed: Nova Salazar Verified Date/Time: 03/22/2019 09:09:11 Reading Location: [facility] [id number] [facility] Consult Reading Room POCT-GLUCOSE [id number] 06:06:00 Test Item Value Reference Range Interpretation Comments POC-GLUCOSE METER 105 mg/dL 70-110 : [facility] (test code = [place], 1538) [id number]: Metal Tube Cutter/Techni aaron ID = [id number] for EDISON BELTRAN VANCOMYCIN LEVEL, [id number] 02:59:00 Test Item Value Reference Range Interpretation Comments VANCOMYCIN TROUGH (BEAKER) (test 15.2 ug/mL 10.0-20.0 code = 522) Metal Tube Cutter ID - JOSE [id number] 02:42:00 Test Item Value Reference Range Interpretation Comments PHOSPHORUS (BEAKER) (test code = 3.8 mg/dL 2.3-4.7 604) Metal Tube Cutter ID - JOSE [id number] 02:42:00 Test Item Value Reference Range Interpretation Comments MAGNESIUM (BEAKER) (test code = 2.0 mg/dL 1.6-2.6 627) Metal Tube Cutter ID - JOSE EBASIC METABOLIC [id number] 02:42:00 Test Item Value Reference Range Interpretation Comments SODIUM (BEAKER) 144 meq/L 136-145 (test code = 381) POTASSIUM (BEAKER) 4.2 meq/L 3.5-5.1 (test code = 379) CHLORIDE (BEAKER) 103 meq/L 98-107 (test code = 382) CO2 (BEAKER) (test 35 meq/L 22-29 H code = 355) BLOOD UREA NITROGEN 39 mg/dL 7-21 H (BEAKER) (test code = 354) CREATININE (BEAKER) 1.57 mg/dL 0.57-1.25 H (test code = 358) GLUCOSE RANDOM 103 mg/dL 70-105 (BEAKER) (test code = 652) CALCIUM (BEAKER) 8.5 mg/dL 8.4-10.2 (test code = 697) EGFR (BEAKER) (test 45 mL/min/1.73 ESTIMA ARLENE GFR IS code = 1092) sq m NOT ACCURATE CREATININE CLEARANCE IN PREDICTING GLOMERULAR FILTRATION RATE . ESTIMATED GFR I S NOT APPLICABLE FOR DIALYSIS PATIEN TS. Metal Tube Cutter ID - JOSE Rose Mariecely slightly ictericCBC W/PLT COUNT & AUTO [id number] 02:27:00 Test Item Value Reference Range Interpretation Comments WHITE BLOOD CELL COUNT (BEAKER) 16.4 K/ L 3.5-10.5 H (test code = 775) RED BLOOD CELL COUNT (BEAKER) 4.03 M/ L 4.63-6.08 L (test code = 761) HEMOGLOBIN (BEAKER) (test code = 10.1 GM/DL 13.7-17.5 L 410) HEMATOCRIT (BEAKER) (test code = 31.0 % 40.1-51.0 L 411) MEAN CORPUSCULAR VOLUME (BEAKER) 76.9 fL 79.0-92.2 L (test code = 753) MEAN CORPUSCULAR HEMOGLOBIN 25.1 pg 25.7-32.2 L (BEAKER) (test code = 751) MEAN CORPUSCULAR HEMOGLOBIN CONC 32.6 GM/DL 32.3-36.5 (BEAKER) (test code = 752) RED CELL DISTRIBUTION WIDTH 18.8 % 11.6-14.4 H (BEAKER) (test code = 412) PLATELET COUNT (BEAKER) (test 255 K/CU MM 150-450 code = 756) MEAN PLATELET VOLUME (BEAKER) 11.2 fL 9.4-12.4 (test code = 754) NUCLEATED RED BLOOD CELLS 0 /100 WBC 0-0 (BEAKER) (test code = 413) NEUTROPHILS RELATIVE PERCENT 79 % (BEAKER) (test code = 429) LYMPHOCYTES RELATIVE PERCENT 11 % (BEAKER) (test code = 430) MONOCYTES RELATIVE PERCENT 9 % (BEAKER) (test code = 431) EOSINOPHILS RELATIVE PERCENT 1 % (BEAKER) (test code = 432) BASOPHILS RELATIVE PERCENT 0 % (BEAKER) (test code = 437) NEUTROPHILS ABSOLUTE COUNT 12.95 K/ L 1.78-5.38 H (BEAKER) (test code = 670) LYMPHOCYTES ABSOLUTE COUNT 1.77 K/ L 1.32-3.57 (BEAKER) (test code = 414) MONOCYTES ABSOLUTE COUNT (BEAKER) 1.41 K/ L 0.30-0.82 H (test code = 415) EOSINOPHILS ABSOLUTE COUNT 0.13 K/ L 0.04-0.54 (BEAKER) (test code = 416) BASOPHILS ABSOLUTE COUNT (BEAKER) 0.02 K/ L 0.01-0.08 (test code = 417) IMMATURE GRANULOCYTES-RELATIVE 1 % 0-1 PERCENT (BEAKER) (test code = 2801) POCT-GLUCOSE [id number] 00:42:00 Test Item Value Reference Range Interpretation Comments POC-GLUCOSE METER 95 mg/dL 70-110 : [facility] (test code = [place], 1538) [id number]: Metal Tube Cutter/Techni aaron ID = [id number] for EDISON CALDWELL BASIC METABOLIC [id number] 22:23:00 Test Item Value Reference Range Interpretation Comments SODIUM (BEAKER) 146 meq/L 136-145 H (test code = 381) POTASSIUM (BEAKER) 3.3 meq/L 3.5-5.1 L (test code = 379) CHLORIDE (BEAKER) 104 meq/L 98-107 (test code = 382) CO2 (BEAKER) (test 34 meq/L 22-29 H code = 355) BLOOD UREA NITROGEN 37 mg/dL 7-21 H (BEAKER) (test code = 354) CREATININE (BEAKER) 1.47 mg/dL 0.57-1.25 H (test code = 358) GLUCOSE RANDOM 98 mg/dL 70-105 (BEAKER) (test code = 652) CALCIUM (BEAKER) 7.8 mg/dL 8.4-10.2 L (test code = 697) EGFR (BEAKER) (test 48 mL/min/1.73 ESTIMA ARLENE GFR IS code = 1092) sq m NOT ACCURATE CREATININE CLEARANCE IN PREDICTING GLOMERULAR FILTRATION RATE . ESTIMATED GFR I S NOT APPLICABLE FOR DIALYSIS PATIEN TS. Metal Tube Cutter ID - BSSpecimen slightly ictericBODY FLUID CELL COUNT WITH DIFFERENTIAL 2019-03-21 20:29:00 Test Item Value Reference Range Interpretation Comments APPEARANCE FLUID (BEAKER) (test Hazy Clear A code = 510) COLOR FLUID (BEAKER) (test code Kierra Colorless, Straw A = 511) RBC FLUID (BEAKER) (test code = 93220 /cu mm <=1 H 513) ADJUSTED WBC FLUID (BEAKER) 2461 /cu mm <=5 H (test code = 1691) LINING CELLS (BEAKER) (test 0 /cu mm <=1 code = 1590) NEUTROPHILS FLUID (BEAKER) 66 % (test code = 1656) LYMPHS FLUID (BEAKER) (test 17 % code = 488) MONO/MACROPHAGE FLUID (BEAKER) 17 % (test code = 489) EOSINOPHILS FLUID (BEAKER) 0 % (test code = 491) BASO FLUID (BEAKER) (test code 0 % = 492) CONTAINER BODY FLUID (BEAKER) EDTA Tube (test code = 2873) U/S, DRAINAGE, CHEST, WITH TUBE [id number] 19:48:00Please place a 3-way stopcock on the [...] loss: < 5 cc. Specimen: Left bedside. tread tuber machine operator: Nato Dang MD. Hemodialysis Charge Nurse: None. Technique: Informed written consent was obtained. [...] space. Under direct ultrasound guidance an 8 Icelandic skater pigtail drain was advanced into the [...] the patient's left chest and an 8 Icelandic skater pigtail drain was placed in a similar fashion and connected to the atrium pleura. The patient tolerated the procedure well without evidence of immediate competition. Impression: Te chnically successful and uncomplicated placement of bilateral pigtail chest tubes under ultrasound guidance. Signed: Nato Dang MDReport Verified Date/Time: 03/21/2019 19:48:47 Reading Location: [facility] [address] [employer] Body Reading Room RESPIRATORY PANEL [id number] 12:39:00 Test Item Value Reference Range Interpretation Comments HUMAN METAPNEUMOVIRUS Not detected Not detected, (BEAKER) (test code = 2683) Equivocal RHINOVIRUS (BEAKER) (test Not detected Not detected, code = 2684) Equivocal INFLUENZA A (BEAKER) (test Not detected Not detected, code = 2685) Equivocal INFLUENZA A (NO SUBTYPE) (test code = 3606) INFLUENZA A SUBTYPE H1 (BEAKER) (test code = 2686) INFLUENZA A SUBTYPE H3 (BEAKER) (test code = 2687) INFLUENZA A SUBTYPE H1-2009 (BEAKER) (test code = 3198) INFLUENZA B (BEAKER) (test Not detected Not detected, code = 2688) Equivocal RESPIRATORY SYNCYTIAL VIRUS Not detected Not detected, (BEAKER) (test code = 3199) Equivocal PARAINFLUENZA VIRUS 1 Not detected Not detected, (BEAKER) (test code = 2691) Equivocal PARAINFLUENZA VIRUS 2 Not detected Not detected, (BEAKER) (test code = 2692) Equivocal PARAINFLUENZA VIRUS 3 Not detected Not detected, (BEAKER) (test code = 2693) Equivocal PARAINFLUENZA VIRUS 4 Not detected Not detected, (BEAKER) (test code = 3200) Equivocal ADENOVIRUS (BEAKER) (test Not detected Not detected, code = 2694) Equivocal CORONAVIRUS 229E (BEAKER) Not detected Not detected, (test code = 3201) Equivocal CORONAVIRUS HKU1 (BEAKER) Not detected Not detected, (test code = 3202) Equivocal CORONAVIRUS NL63 (BEAKER) Not detected Not detected, (test code = 3203) Equivocal CORONAVIRUS OC43 (BEAKER) Not detected Not detected, (test code = 3204) Equivocal BORDETELLA PERTUSSIS Not detected Not detected, (BEAKER) (test code = 3205) Equivocal CHLAMYDOPHILA PNEUMONIAE Not detected Not detected, (BEAKER) (test code = 3206) Equivocal MYCOPLASMA PNEUMONIAE Not detected Not detected, (BEAKER) (test code = 3207) Equivocal Other viruses and bacteria not targeted by this PCR panel cannot be excluded; therefore clinical correlation and follow up of serology, culture results, and other molecular studies is required. The results are not intended to be used as the sole means for clinical diagnosis or patient management decisions. This sample was tested at the [facility] using the R + B GroupArray Respiratory Panel. It is FDA cleared and has been verified and approved by the [facility] for clinical use on nasopharyngeal swab specimens.The performance of the FilmArrayRP has not been established in individuals who received influenza vaccine. Recent administration ofa nasal influenza vaccine may cause false positive results for Influenza A and/orInfluenza B.VITAMIN B12 AND [id number] 10:20:00 Test Item Value Reference Range Interpretation Comments VITAMIN B12 (BEAKER) (test code = > pg/mL 213-816 H 774) FOLATE (BEAKER) (test code = 362) 17.3 ng/mL >=7.0 Metal Tube Cutter ID - ELISSA [id number] 10:16:00 Test Item Value Reference Range Interpretation Comments FERRITIN (BEAKER) (test code = 1076 ng/mL 5-275 H 361) Metal Tube Cutter ID - ELISSA [id number] 09:41:00 Test Item Value Reference Range Interpretation Comments MAGNESIUM (BEAKER) (test code = 2.0 mg/dL 1.6-2.6 627) Metal Tube Cutter ID - ELISSA MBASIC METABOLIC [id number] 09:41:00 Test Item Value Reference Range Interpretation Comments SODIUM (BEAKER) 144 meq/L 136-145 (test code = 381) POTASSIUM (BEAKER) 3.9 meq/L 3.5-5.1 (test code = 379) CHLORIDE (BEAKER) 102 meq/L 98-107 (test code = 382) CO2 (BEAKER) (test 39 meq/L 22-29 H code = 355) BLOOD UREA NITROGEN 34 mg/dL 7-21 H (BEAKER) (test code = 354) CREATININE (BEAKER) 1.36 mg/dL 0.57-1.25 H (test code = 358) GLUCOSE RANDOM 94 mg/dL 70-105 (BEAKER) (test code = 652) CALCIUM (BEAKER) 8.0 mg/dL 8.4-10.2 L (test code = 697) EGFR (BEAKER) (test 53 mL/min/1.73 ESTIMA ARLENE GFR IS code = 1092) sq m NOT ACCURATE CREATININE CLEARANCE IN PREDICTING GLOMERULAR FILTRATION RATE . ESTIMATED GFR I S NOT APPLICABLE FOR DIALYSIS PATIEN TS. Metal Tube Cutter ID - ELISSA MSpecimen slightly ictericLACTATE DEHYDROGENASE (LDH) 2019-03-21 09:41:00 Test Item Value Reference Range Interpretation Comments LACTATE DEHYDROGENASE (BEAKER) (test 300 U/L 125-220 H code = 635) Metal Tube Cutter ID - ELISSA DANIELLE, TIBC, % SAT. (WITHOUT FERRITIN)2019-03-21 09:39:00 Test Item Value Reference Range Interpretation Comments IRON (BEAKER) (test code = 547) 39.0 ug/dL 40.0-160.0 L TOTAL IRON BINDING CAPACITY 113 ug/dL 250-450 L (BEAKER) (test code = 769) IRON % SATURATION (2) (BEAKER) 35 % 20-55 (test code = 2590) Metal Tube Cutter ID - ELISSA MRAPID INFLUENZA A&B [id number] 09:34:00 Test Item Value Reference Range Interpretation Comments RAPID INFLUENZA A AG (BEAKER) Negative Negative, Inconclusive (test code = 1622) RAPID INFLUENZA B AG (BEAKER) Negative Negative, Inconclusive (test code = 1623) RETICULOCYTE [id number] 09:20:00 Test Item Value Reference Range Interpretation Comments RETICULOCYTE COUNT PCT (BEAKER) (test 1.9 % 0.5-1.8 H code = 575) Metal Tube Cutter ID - [id number] W/PLT COUNT & AUTO [id number] 08:50:00 Test Item Value Reference Range Interpretation Comments WHITE BLOOD CELL COUNT (BEAKER) 17.8 K/ L 3.5-10.5 H (test code = 775) RED BLOOD CELL COUNT (BEAKER) 4.58 M/ L 4.63-6.08 L (test code = 761) HEMOGLOBIN (BEAKER) (test code = 11.3 GM/DL 13.7-17.5 L 410) HEMATOCRIT (BEAKER) (test code = 35.2 % 40.1-51.0 L 411) MEAN CORPUSCULAR VOLUME (BEAKER) 76.9 fL 79.0-92.2 L (test code = 753) MEAN CORPUSCULAR HEMOGLOBIN 24.7 pg 25.7-32.2 L (BEAKER) (test code = 751) MEAN CORPUSCULAR HEMOGLOBIN CONC 32.1 GM/DL 32.3-36.5 L (BEAKER) (test code = 752) RED CELL DISTRIBUTION WIDTH 19.0 % 11.6-14.4 H (BEAKER) (test code = 412) PLATELET COUNT (BEAKER) (test 339 K/CU MM 150-450 code = 756) MEAN PLATELET VOLUME (BEAKER) 11.1 fL 9.4-12.4 (test code = 754) NUCLEATED RED BLOOD CELLS 0 /100 WBC 0-0 (BEAKER) (test code = 413) (CELLAVISION MANUAL DIFF)2019-03-21 08:50:00 Test Item Value Reference Range Interpretation Comments NEUTROPHILS - REL 88 % (CELLAVISION)(BEAKER) (test code = 2816) LYMPHOCYTES - REL 1 % (CELLAVISION)(BEAKER) (test code = 2817) MONOCYTES - REL 5 % (CELLAVISION)(BEAKER) (test code = 2818) EOSINOPHILS - REL 4 % (CELLAVISION)(BEAKER) (test code = 2819) BANDS - REL (CELLAVISION)(BEAKER) 2 % 0-10 (test code = 2826) NEUTROPHILS - ABS 15.66 K/ul 1.78-5.38 H (CELLAVISION)(BEAKER) (test code = 2830) LYMPHOCYTES - ABS 0.18 K/ul 1.32-3.57 L (CELLAVISION)(BEAKER) (test code = 2831) MONOCYTES - ABS 0.89 K/uL 0.30-0.82 H (CELLAVISION)(BEAKER) (test code = 2832) EOSINOPHILS - ABS 0.71 K/uL 0.04-0.54 H (CELLAVISION)(BEAKER) (test code = 2834) BANDS - ABS (CELLAVISION)(BEAKER) 0.36 K/uL 0.00-0.80 (test code = 2840) TOTAL COUNTED (BEAKER) (test code 100 = 1351) WBC MORPHOLOGY (BEAKER) (test Normal code = 487) PLT MORPHOLOGY (BEAKER) (test Normal code = 486) POLYCHROMATOPHILLIC RBCS(BEAKER) 1+ few (test code = 478) ANISOCYTOSIS (BEAKER) (test code 1+ few = 961) POIKILOCYTES (BEAKER) (test code 2+ moderate = 966) BAN CELLS (BEAKER) (test code = 2+ moderate 474) ARTIFACT (CELLAVISION)(BEAKER) Present (test code = 3432) PLATELET CONCENTRATION Adequate (CELLAVISION)(BEAKER) (test code = 3438) Metal Tube Cutter ID - Mariela OverholtUser comments: Slide comments:POCT-GLUCOSE METER 2019-03-21 05:45:00 Test Item Value Reference Range Interpretation Comments POC-GLUCOSE METER 89 mg/dL 70-110 : TESTED A T BSC 6720 (BEAKER) (test code = ILDA Calvert [facility], 1538) [address]: Metal Tube Cutter/Techni aaron ID = [id number] for EDISON CALDWELL U/S, ABDOMINAL, [id number] 05:36:00Abdomen limited area? Add comment if clarification [...] of the right upper quadrant. Signed: Tomasa Luque MD Report Verified Date/Time: 03/21/2019 05:36:04 [id number] 03:16:00 Test Item Value Reference Range Interpretation Comments MAGNESIUM (BEAKER) 2.1 mg/dL 1.6-2.6 Specimen slightly (test code = 627) hemolyzed Metal Tube Cutter ID - ELISSA [id number] 03:16:00 Test Item Value Reference Range Interpretation Comments PHOSPHORUS (BEAKER) 4.4 mg/dL 2.3-4.7 Specimen slightly (test code = 604) hemolyzed Metal Tube Cutter ID - ELISSA [id number] 02:32:00 Test Item Value Reference Range Interpretation Comments MAGNESIUM (BEAKER) 2.1 mg/dL 1.6-2.6 Specimen slightly (test code = 627) hemolyzed Metal Tube Cutter ID - ALEM BBASIC METABOLIC [id number] 01:30:00 Test Item Value Reference Range Interpretation Comments SODIUM (BEAKER) 141 meq/L 136-145 (test code = 381) POTASSIUM (BEAKER) 3.7 meq/L 3.5-5.1 (test code = 379) CHLORIDE (BEAKER) 102 meq/L 98-107 (test code = 382) CO2 (BEAKER) (test 33 meq/L 22-29 H code = 355) BLOOD UREA NITROGEN 32 mg/dL 7-21 H (BEAKER) (test code = 354) CREATININE (BEAKER) 1.28 mg/dL 0.57-1.25 H (test code = 358) GLUCOSE RANDOM 109 mg/dL 70-105 H (BEAKER) (test code = 652) CALCIUM (BEAKER) 7.6 mg/dL 8.4-10.2 L (test code = 697) EGFR (BEAKER) (test 57 mL/min/1.73 ESTIMA ARLENE GFR IS code = 1092) sq m NOT ACCURATE CREATININE CLEARANCE IN PREDICTING GLOMERULAR FILTRATION RATE . ESTIMATED GFR I S NOT APPLICABLE FOR DIALYSIS PATIEN TS. Metal Tube Cutter ID - ALEM BSpecimen slightly ictericPOCT-GLUCOSE [id number] 23:58:00 Test Item Value Reference Range Interpretation Comments POC-GLUCOSE METER 114 mg/dL 70-110 H : TESTED A T [facility] 6720 (BEAKER) (test code = [facility], 1538) [id number]: Metal Tube Cutter/Techni aaron ID = [id number] for EDISON BELTRAN [id number] 20:21:00 Test Item Value Reference Range Interpretation Comments MAGNESIUM (BEAKER) (test code = 2.1 mg/dL 1.6-2.6 627) Metal Tube Cutter ID - ALEM BPOCT-GLUCOSE [id number] 18:23:00 Test Item Value Reference Range Interpretation Comments POC-GLUCOSE METER 98 mg/dL 70-110 : TESTED A T [facility] 6720 (BEAKER) (test code = [facility] [place], 1538) [id number]: Metal Tube Cutter/Techni aaron ID = [id number] for ISABELA LE BASIC METABOLIC [id number] 17:43:00 Test Item Value Reference Range Interpretation Comments SODIUM (BEAKER) 142 meq/L 136-145 (test code = 381) POTASSIUM (BEAKER) 3.3 meq/L 3.5-5.1 L (test code = 379) CHLORIDE (BEAKER) 100 meq/L 98-107 (test code = 382) CO2 (BEAKER) (test 37 meq/L 22-29 H code = 355) BLOOD UREA NITROGEN 29 mg/dL 7-21 H (BEAKER) (test code = 354) CREATININE (BEAKER) 1.22 mg/dL 0.57-1.25 (test code = 358) GLUCOSE RANDOM 104 mg/dL 70-105 (BEAKER) (test code = 652) CALCIUM (BEAKER) 8.0 mg/dL 8.4-10.2 L (test code = 697) EGFR (BEAKER) (test 60 mL/min/1.73 ESTIMA ARLENE GFR IS code = 1092) sq m NOT ACCURATE CREATININE CLEARANCE IN PREDICTING GLOMERULAR FILTRATION RATE . ESTIMATED GFR I S NOT APPLICABLE FOR DIALYSIS PATIEN TS. Metal Tube Cutter ID - AAHAMIDSpecimen slightly ictericBLOOD GAS, [id number] 16:45:00 Test Item Value Reference Range Interpretation Comments PH ARTERIAL (BEAKER) (test code = 7.50 7.35-7.45 H 383) PCO2 ARTERIAL (BEAKER) (test code 49 mmHg 35-45 H = 384) PO2 ARTERIAL (BEAKER) (test code 87 mmHg 80-90 = 385) O2 SATURATION ARTERIAL (BEAKER) 97.0 % 96.0-97.0 (test code = 386) HCO3 ARTERIAL (BEAKER) (test code 38 mmol/L 21-29 H = 388) BASE EXCESS ARTERIAL (BEAKER) 12.9 mmol/L -2.0-3.0 H (test code = 387) PATIENT TEMPERATURE (BEAKER) 37.5 C (test code = 1818) FIO2 (BEAKER) (test code = 1819) 30.0 % CT, CHEST, WITHOUT [id number] 14:58:00FINAL REPORT CT of the Chest dated [...] [place] Verified Date/Time: 03/20/2019 14:58:27 Reading Location: [facility] C013Y CT Body Reading Room VANCOMYCIN LEVEL, TROUGH 2019-03-20 13:36:00 Test Item Value Reference Range Interpretation Comments VANCOMYCIN TROUGH (BEAKER) (test 24.0 ug/mL 10.0-20.0 H code = 522) Metal Tube Cutter ID - BSPOCT-GLUCOSE [id number] 12:46:00 Test Item Value Reference Range Interpretation Comments POC-GLUCOSE METER 87 mg/dL 70-110 : TESTED A T [facility] 6720 (BEAKER) (test code = [facility], 1538) [id number]: Metal Tube Cutter/Techni aaron ID = [id number] for ISABELA LE HEMOGLOBIN [id number] 09:33:00 Test Item Value Reference Range Interpretation Comments HEMOGLOBIN A1C (BEAKER) (test code = 6.2 % 4.3-6.1 H 368) OSMOLALITY, [id number] 07:32:00 Test Item Value Reference Range Interpretation Comments OSMOLALITY URINE (BEAKER) (test 540 mOsm/kg 40-1,400 code = 614) TROPONIN [id number] 06:34:00 Test Item Value Reference Range Interpretation Comments TROPONIN I (BEAKER) (test code = 0.03 ng/mL 0.00-0.03 397) Troponin I (TnI) levels must be interpreted [...] failure, acidosis, acute neurological disease, and persistent tachyarrhythmia.Metal Tube Cutter ID - SANDRA WLACTIC ACID, VENOUS 2019-03-20 06:14:00 Test Item Value Reference Range Interpretation Comments LACTATE BLOOD VENOUS (2) (BEAKER) 2.0 mmol/L 0.5-2.2 (test code = 2872) Metal Tube Cutter ID - SANDRA WSpecimen slightly ictericPOCT-GLUCOSE [id number] 05:56:00 Test Item Value Reference Range Interpretation Comments POC-GLUCOSE METER 86 mg/dL 70-110 : TESTED A T [facility] 6720 (BEAKER) (test code = IL[facility], 1538) [id number]: Metal Tube Cutter/Techni aaron ID = [id number] for RENEE LAMDCHARLEEN CBC W/PLT COUNT & AUTO [id number] 05:35:00 Test Item Value Reference Range Interpretation Comments WHITE BLOOD CELL COUNT (BEAKER) 14.8 K/ L 3.5-10.5 H (test code = 775) RED BLOOD CELL COUNT (BEAKER) 5.03 M/ L 4.63-6.08 (test code = 761) HEMOGLOBIN (BEAKER) (test code = 12.3 GM/DL 13.7-17.5 L 410) HEMATOCRIT (BEAKER) (test code = 37.7 % 40.1-51.0 L 411) MEAN CORPUSCULAR VOLUME (BEAKER) 75.0 fL 79.0-92.2 L (test code = 753) MEAN CORPUSCULAR HEMOGLOBIN 24.5 pg 25.7-32.2 L (BEAKER) (test code = 751) MEAN CORPUSCULAR HEMOGLOBIN CONC 32.6 GM/DL 32.3-36.5 (BEAKER) (test code = 752) RED CELL DISTRIBUTION WIDTH 18.7 % 11.6-14.4 H (BEAKER) (test code = 412) PLATELET COUNT (BEAKER) (test 357 K/CU MM 150-450 code = 756) MEAN PLATELET VOLUME (BEAKER) 11.4 fL 9.4-12.4 (test code = 754) NUCLEATED RED BLOOD CELLS 0 /100 WBC 0-0 (BEAKER) (test code = 413) NEUTROPHILS RELATIVE PERCENT 78 % (BEAKER) (test code = 429) LYMPHOCYTES RELATIVE PERCENT 12 % (BEAKER) (test code = 430) MONOCYTES RELATIVE PERCENT 8 % (BEAKER) (test code = 431) EOSINOPHILS RELATIVE PERCENT 1 % (BEAKER) (test code = 432) BASOPHILS RELATIVE PERCENT 0 % (BEAKER) (test code = 437) NEUTROPHILS ABSOLUTE COUNT 11.57 K/ L 1.78-5.38 H (BEAKER) (test code = 670) LYMPHOCYTES ABSOLUTE COUNT 1.70 K/ L 1.32-3.57 (BEAKER) (test code = 414) MONOCYTES ABSOLUTE COUNT (BEAKER) 1.25 K/ L 0.30-0.82 H (test code = 415) EOSINOPHILS ABSOLUTE COUNT 0.14 K/ L 0.04-0.54 (BEAKER) (test code = 416) BASOPHILS ABSOLUTE COUNT (BEAKER) 0.02 K/ L 0.01-0.08 (test code = 417) IMMATURE GRANULOCYTES-RELATIVE 1 % 0-1 PERCENT (BEAKER) (test code = 2801) URINALYSIS W/ REFLEX URINE [id number] 04:38:00 Test Item Value Reference Range Interpretation Comments COLOR (BEAKER) (test code = 470) Dark Yellow CLARITY (BEAKER) (test code = Clear 469) SPECIFIC GRAVITY UA (BEAKER) 1.024 1.001-1.035 (test code = 468) PH UA (BEAKER) (test code = 467) 8.0 5.0-8.0 PROTEIN UA (BEAKER) (test code = 50 mg/dL Negative A 464) GLUCOSE UA (BEAKER) (test code = Negative Negative 365) KETONES UA (BEAKER) (test code = Negative Negative 371) BILIRUBIN UA (BEAKER) (test code Positive Negative A = 462) BLOOD UA (BEAKER) (test code = Negative Negative 461) NITRITE UA (BEAKER) (test code = Negative Negative 465) LEUKOCYTE ESTERASE UA (BEAKER) Moderate Negative A (test code = 466) UROBILINOGEN UA (BEAKER) (test > mg/dL 0.2-1.0 H code = 463) RBC UA (BEAKER) (test code = 519) 10 /HPF WBC UA (BEAKER) (test code = 520) 18 /HPF SQUAMOUS EPITHELIAL (BEAKER) < /HPF (test code = 516) SOURCE(BEAKER) (test code = 2795) Metal Tube Cutter ID - [auto]Metal Tube Cutter ID - techRAD, CHEST, 1 VIEW, NON [id number] 04:29:00Reason for exam:->pneumonia, COPD exac, CHF exacShould [...] There is no pneumothorax. Signed: Nakia Goldstein [facility] Verified Date/Time: 03/20/2019 04:29:54 BLOOD GAS, [id number] 04:12:00 Test Item Value Reference Range Interpretation Comments PH ARTERIAL (BEAKER) (test code = 7.53 7.35-7.45 H 383) PCO2 ARTERIAL (BEAKER) (test code 44 mmHg 35-45 = 384) PO2 ARTERIAL (BEAKER) (test code 81 mmHg 80-90 = 385) O2 SATURATION ARTERIAL (BEAKER) 96.9 % 96.0-97.0 (test code = 386) HCO3 ARTERIAL (BEAKER) (test code 36 mmol/L 21-29 H = 388) BASE EXCESS ARTERIAL (BEAKER) 11.3 mmol/L -2.0-3.0 H (test code = 387) PATIENT TEMPERATURE (BEAKER) 37.0 C (test code = 1818) FIO2 (BEAKER) (test code = 1819) 30.0 % TSH/FREE T4 IF [id number] 04:07:00 Test Item Value Reference Range Interpretation Comments THYROID STIMULATING HORMONE 3.06 uIU/mL 0.35-4.94 (BEAKER) (test code = 772) Metal Tube Cutter ID - BSTROPONIN [id number] 03:57:00 Test Item Value Reference Range Interpretation Comments TROPONIN I (BEAKER) (test code = 0.05 ng/mL 0.00-0.03 H 397) Troponin I (TnI) levels must be interpreted [...] failure, acidosis, acute neurological disease, and persistent tachyarrhythmia.Metal Tube Cutter ID - SANDRA WB-TYPE NATRIURETIC FACTOR (BNP)2019-03-20 03:53:00 Test Item Value Reference Range Interpretation Comments B-TYPE NATRIURETIC PEPTIDE (BEAKER) 907 pg/mL 0-100 H (test code = 700) Metal Tube Cutter ID - BSBASIC METABOLIC [id number] 03:52:00 Test Item Value Reference Range Interpretation Comments SODIUM (BEAKER) 142 meq/L 136-145 (test code = 381) POTASSIUM (BEAKER) 3.6 meq/L 3.5-5.1 Specimen slightly (test code = 379) hemolyzed CHLORIDE (BEAKER) 100 meq/L 98-107 (test code = 382) CO2 (BEAKER) (test 35 meq/L 22-29 H code = 355) BLOOD UREA NITROGEN 24 mg/dL 7-21 H (BEAKER) (test code = 354) CREATININE (BEAKER) 0.90 mg/dL 0.57-1.25 Specimen slightly (test code = 358) hemolyzed GLUCOSE RANDOM 86 mg/dL 70-105 (BEAKER) (test code = 652) CALCIUM (BEAKER) 7.7 mg/dL 8.4-10.2 L (test code = 697) EGFR (BEAKER) (test 85 mL/min/1.73 ESTIMA ARLENE GFR IS code = 1092) sq m NOT ACCURATE CREATININE CLEARANCE IN PREDICTING GLOMERULAR FILTRATION RATE . ESTIMATED GFR I S NOT APPLICABLE FOR DIALYSIS PATIEN TS. Metal Tube Cutter ID - SANDRA WSpecimen slightly ictericHEPATIC FUNCTION [id number] 03:52:00 Test Item Value Reference Range Interpretation Comments TOTAL PROTEIN (BEAKER) 5.9 gm/dL 6.0-8.3 L Speci men slightly (test code = 770) hemolyzed ALBUMIN (BEAKER) (test 1.7 g/dL 3.5-5.0 L Speci men slightly code = 1145) hemolyzed BILIRUBIN TOTAL 3.2 mg/dL 0.2-1.2 H Specimen sli ghtly (BEAKER) (test code = hemoly zed 377) BILIRUBIN DIRECT 2.1 mg/dL 0.1-0.5 H Specimen sl ightly (BEAKER) (test code = hemoly zed 706) ALKALINE PHOSPHATASE 100 U/L 40-150 (BEAKER) (test code = 346) AST (SGOT) (BEAKER) 31 U/L 5-34 Specimen slightly (test code = 353) hemolyzed ALT (SGPT) (BEAKER) 12 U/L 6-55 Specimen slightly (test code = 347) hemolyzed Metal Tube Cutter ID - SANDRA SEWELLpecimen slightly ictericLIPID [id number] 03:52:00 Test Item Value Reference Range Interpretation Comments TRIGLYCERIDES (BEAKER) 60 mg/dL Speci men slightly (test code = 540) hemolyzed CHOLESTEROL (BEAKER) 55 mg/dL Specime n slightly (test code = 631) hemolyzed HDL CHOLESTEROL (BEAKER) 15 mg/dL (test code = 976) LDL CHOLESTEROL 28 mg/dL CALCULATED (BEAKER) (test code = 633) Triglyceride Reference Range: Low Risk <150 Borderline 150-199 High Risk 200-499 Very High Risk >=500Cholesterol Reference Range: Low Risk <200 Borderline 200-239 High Risk >240HDL Cholesterol Reference Range: Low Risk >=60 High Risk <40LDL Cholesterol Reference Range: Optimal <100 Near Optimal 100-129 Borderline 130-159 High 160-189 Very High >=190 Metal Tube Cutter ID - SANDRAWSpecimen slightly ictericVANCOMYCIN LEVEL, RANDOM 2019-03-20 03:51:00 Test Item Value Reference Range Interpretation Comments VANCOMYCIN RANDOM (BEAKER) (test 52.3 ug/mL code = 523) Reference Range: No NormalsOperator ID Sultana FLORES [id number] 03:49:00 Test Item Value Reference Range Interpretation Comments MAGNESIUM (BEAKER) 2.1 mg/dL 1.6-2.6 Specimen slightly (test code = 627) hemolyzed Metal Tube Cutter ID - SANDRA [id number] 03:49:00 Test Item Value Reference Range Interpretation Comments PHOSPHORUS (BEAKER) 3.0 mg/dL 2.3-4.7 Specimen slightly (test code = 604) hemolyzed Metal Tube Cutter ID - SANDRA [id number] 03:36:00 Test Item Value Reference Range Interpretation Comments FIBRINOGEN LEVEL (BEAKER) (test 492 mg/dl 225-434 H code = 658) PT/[id number] 03:36:00 Test Item Value Reference Range Interpretation Comments PROTIME (BEAKER) (test code = 17.9 seconds 11.9-14.2 H 759) INR (BEAKER) (test code = 370) 1.5 <=5.9 PARTIAL THROMBOPLASTIN TIME 37.6 seconds 22.5-36.0 H (BEAKER) (test code = 760) Effective 07/24/2018: PT Reference Range ChangeNew: 11.9-14.2 Previous: 11.7- 14.7RECOMMENDED COUMADIN/WARFARIN INR THERAPY RANGESSTANDARD DOSE: 2.0-3.0 Includes: PROPHYLAXIS for venous thrombosis, systemic embolization; TREATMENT for venous thrombosis and/or pulmonary embolus.HIGH RISK: Target INR is2.5-3.5 for patients wiht mechanical heart valves.PROTHROMBIN TIME/[id number] 03:35:00 Test Item Value Reference Range Interpretation Comments PROTIME (BEAKER) (test code = 17.9 seconds 11.9-14.2 H 759) INR (BEAKER) (test code = 370) 1.5 <=5.9 Effective 07/24/2018: PT Reference Range ChangeNew: 11.9-14.2 Previous: 11.7- 14.7RECOMMENDED COUMADIN/WARFARIN INR THERAPY RANGESSTANDARD DOSE: 2.0-3.0 Includes: PROPHYLAXIS for venous thrombosis, systemic embolization; TREATMENT for venous thrombosis and/or pulmonary embolus.HIGH RISK: Target INR is2.5-3.5 for patients wiht mechanical heart valves.SODIUM, RANDOM [id number] 03:33:00 Test Item Value Reference Range Interpretation Comments SODIUM URINE (BEAKER) (test code = < meq/L 243) Reference Range: No NormalsOperator ID - BSCHLORIDE, RANDOM [id number] 03:33:00 Test Item Value Reference Range Interpretation Comments CHLORIDE URINE (BEAKER) (test code = < meq/L 682) Reference Range: No NormalsOperator ID - BSCREATININE, RANDOM [id number] 03:32:00 Test Item Value Reference Range Interpretation Comments CREATININE URINE (BEAKER) (test 120.7 mg/dL code = 375) Reference Range: No NormalsOperator ID - BSPROTEIN, RANDOM [id number] 03:32:00 Test Item Value Reference Range Interpretation Comments PROTEIN, URINE (BEAKER) (test code = 72 mg/dL 0-14 H 1569) Metal Tube Cutter ID - BSUREA NITROGEN, RANDOM [id number] 03:32:00 Test Item Value Reference Range Interpretation Comments UREA NITROGEN URINE (BEAKER) (test 915 mg/dL code = 538) Reference Range: No NormalsOperator ID - BSSTREP PNEUMONIAE [id number] 03:31:00 Test Item Value Reference Range Interpretation Comments STREP PNEUMONIAE Presumptive negative Presumptive negative ANTIGEN (BEAKER) for pneumococcal for pneumococcal (test code = 1615) pneumonia - see pneumonia - see comment commen Presumptive negative for pneumococcal pneumonia, suggesting no current or recent pneumococcal infection. Infection due to S. pneumoniae cannot be ruled out since the antigen present in the sample may be below the detection limit of the test.LEGIONELLA ANTIGEN, [id number] 03:30:00 Test Item Value Reference Range Interpretation Comments L. PNEUMOPHILA Negative - see Negative fo r L. SEROGP 1 UR AG comment pneumophila (BEAKER) (test code serogrou p 1 antigen, = 1156) suggesting no r ecent or current infe ction with this serog roup. Legionellosis c annot be ruled out si nce other serogroup s and species may cau se disease. POCT-GLUCOSE [id number] 00:50:00 Test Item Value Reference Range Interpretation Comments POC-GLUCOSE METER 87 mg/dL 70-110 : TESTED A T [facility] 6720 (BEAKER) (test code = [place], 1538) [address]: Metal Tube Cutter/Techni aaron ID = [id number] for CHARLEEN OLIVER [id number] 09:16:00 Test Item Value Reference Range Interpretation Comments MAGNESIUM (BEAKER) (test code = 1.7 mg/dL 1.6-2.6 627) [id number] 09:16:00 Test Item Value Reference Range Interpretation Comments PHOSPHORUS (BEAKER) (test code = 4.2 mg/dL 2.3-4.7 604) BASIC METABOLIC [id number] 05:44:00 Test Item Value Reference Range Interpretation Comments SODIUM (BEAKER) 137 meq/L 136-145 (test code = 381) POTASSIUM (BEAKER) 3.6 meq/L 3.5-5.1 (test code = 379) CHLORIDE (BEAKER) 101 meq/L 98-107 (test code = 382) CO2 (BEAKER) (test 31 meq/L 22-29 H code = 355) BLOOD UREA NITROGEN 10 mg/dL 7-21 (BEAKER) (test code = 354) CREATININE (BEAKER) 0.75 mg/dL 0.57-1.25 (test code = 358) GLUCOSE RANDOM 79 mg/dL 70-105 (BEAKER) (test code = 652) CALCIUM (BEAKER) 9.6 mg/dL 8.4-10.2 (test code = 697) EGFR (BEAKER) (test 105 mL/min/1.73 ESTIM ATED GFR IS code = 1092) sq m NOT ACCURATE CREATININE CLEARANCE IN PREDICTING GLOMERULAR FILTRATION RATE . ESTIMATED GFR I S NOT APPLICABLE FOR DIALYSIS PATIEN TS. CBC W/PLT COUNT & AUTO [id number] 05:29:00 Test Item Value Reference Range Interpretation Comments WHITE BLOOD CELL COUNT (BEAKER) 7.9 K/ L 3.5-10.5 (test code = 775) RED BLOOD CELL COUNT (BEAKER) 5.45 M/ L 4.63-6.08 (test code = 761) HEMOGLOBIN (BEAKER) (test code = 13.9 GM/DL 13.7-17.5 410) HEMATOCRIT (BEAKER) (test code = 42.6 % 40.1-51.0 411) MEAN CORPUSCULAR VOLUME (BEAKER) 78.2 fL 79.0-92.2 L (test code = 753) MEAN CORPUSCULAR HEMOGLOBIN 25.5 pg 25.7-32.2 L (BEAKER) (test code = 751) MEAN CORPUSCULAR HEMOGLOBIN CONC 32.6 GM/DL 32.3-36.5 (BEAKER) (test code = 752) RED CELL DISTRIBUTION WIDTH 16.1 % 11.6-14.4 H (BEAKER) (test code = 412) PLATELET COUNT (BEAKER) (test 400 K/CU MM 150-450 code = 756) MEAN PLATELET VOLUME (BEAKER) 10.0 fL 9.4-12.4 (test code = 754) NUCLEATED RED BLOOD CELLS 0 /100 WBC 0-0 (BEAKER) (test code = 413) NEUTROPHILS RELATIVE PERCENT 58 % (BEAKER) (test code = 429) LYMPHOCYTES RELATIVE PERCENT 23 % (BEAKER) (test code = 430) MONOCYTES RELATIVE PERCENT 13 % (BEAKER) (test code = 431) EOSINOPHILS RELATIVE PERCENT 4 % (BEAKER) (test code = 432) BASOPHILS RELATIVE PERCENT 1 % (BEAKER) (test code = 437) NEUTROPHILS ABSOLUTE COUNT 4.62 K/ L 1.78-5.38 (BEAKER) (test code = 670) LYMPHOCYTES ABSOLUTE COUNT 1.85 K/ L 1.32-3.57 (BEAKER) (test code = 414) MONOCYTES ABSOLUTE COUNT (BEAKER) 0.99 K/ L 0.30-0.82 H (test code = 415) EOSINOPHILS ABSOLUTE COUNT 0.33 K/ L 0.04-0.54 (BEAKER) (test code = 416) BASOPHILS ABSOLUTE COUNT (BEAKER) 0.09 K/ L 0.01-0.08 H (test code = 417) IMMATURE GRANULOCYTES-RELATIVE 0 % 0-1 PERCENT (BEAKER) (test code = 2801) TROPONIN [id number] 22:36:00 Test Item Value Reference Range Interpretation Comments TROPONIN I (BEAKER) (test code = 0.05 ng/mL 0.00-0.03 H 397) Troponin I (TnI) levels must be interpreted [...] acidosis, acute neurological disease, and persistent tachyarrhythmia.TROPONIN [id number] 16:36:00 Test Item Value Reference Range Interpretation Comments TROPONIN I (BEAKER) (test code = 0.02 ng/mL 0.00-0.03 397) Troponin I (TnI) levels must be interpreted [...] neurological disease, and persistent tachyarrhythmia.TSH/FREE T4 IF [id number] 10:58:00 Test Item Value Reference Range Interpretation Comments THYROID STIMULATING HORMONE 1.16 uIU/mL 0.35-4.94 (BEAKER) (test code = 772) TROPONIN [id number] 10:44:00 Test Item Value Reference Range Interpretation Comments TROPONIN I (BEAKER) (test code = 0.02 ng/mL 0.00-0.03 397) Troponin I (TnI) levels must be interpreted [...] 2019-01-23 10:44:00 Test Item Value Reference Range Interpretation Comments B-TYPE NATRIURETIC PEPTIDE (BEAKER) 597 pg/mL 0-100 H (test code = 700) [id number] 10:05:00 Test Item Value Reference Range Interpretation Comments MAGNESIUM (BEAKER) (test code = 1.7 mg/dL 1.6-2.6 627) MR, MRA, BRAIN, WITHOUT [id number] 08:26:00FINAL REPORT MRV Head CLINICAL HISTORY:Stroke, follow upconcern for transverse sinus thrombosis, need MRV please TECHNIQUE: MRV of the head utilizing 2-D nkcq-gp-kogvoh technique. COMPARISON: CTA 01/22/2019 FINDINGS: There is an irregular filling defect within the medial aspect of the left transverse sinus, corresponding with the abnormality seen on yesterday's CTA. The other major dural venous sinuses in the brain are patent. IMPRESSION: Filling defect within the medial aspect of the left transverse sinus remains concerning for venous thrombosis. Signed: Simran Rajan [facility] Verified Date/Time: 01/23/2019 08:26:36 BASIC METABOLIC [id number] 05:55:00 Test Item Value Reference Range Interpretation Comments SODIUM (BEAKER) 137 meq/L 136-145 (test code = 381) POTASSIUM (BEAKER) 3.2 meq/L 3.5-5.1 L (test code = 379) CHLORIDE (BEAKER) 100 meq/L 98-107 (test code = 382) CO2 (BEAKER) (test 30 meq/L 22-29 H code = 355) BLOOD UREA NITROGEN 9 mg/dL 7-21 (BEAKER) (test code = 354) CREATININE (BEAKER) 0.80 mg/dL 0.57-1.25 (test code = 358) GLUCOSE RANDOM 93 mg/dL 70-105 (BEAKER) (test code = 652) CALCIUM (BEAKER) 9.3 mg/dL 8.4-10.2 (test code = 697) EGFR (BEAKER) (test 97 mL/min/1.73 ESTIMA ARLENE GFR IS code = 1092) sq m NOT ACCURATE CREATININE CLEARANCE IN PREDICTING GLOMERULAR FILTRATION RATE . ESTIMATED GFR I S NOT APPLICABLE FOR DIALYSIS PATIEN TS. CBC W/PLT COUNT & AUTO [id number] 05:34:00 Test Item Value Reference Range Interpretation Comments WHITE BLOOD CELL COUNT (BEAKER) 7.3 K/ L 3.5-10.5 (test code = 775) RED BLOOD CELL COUNT (BEAKER) 5.34 M/ L 4.63-6.08 (test code = 761) HEMOGLOBIN (BEAKER) (test code = 13.4 GM/DL 13.7-17.5 L 410) HEMATOCRIT (BEAKER) (test code = 41.5 % 40.1-51.0 411) MEAN CORPUSCULAR VOLUME (BEAKER) 77.7 fL 79.0-92.2 L (test code = 753) MEAN CORPUSCULAR HEMOGLOBIN 25.1 pg 25.7-32.2 L (BEAKER) (test code = 751) MEAN CORPUSCULAR HEMOGLOBIN CONC 32.3 GM/DL 32.3-36.5 (BEAKER) (test code = 752) RED CELL DISTRIBUTION WIDTH 15.6 % 11.6-14.4 H (BEAKER) (test code = 412) PLATELET COUNT (BEAKER) (test 374 K/CU MM 150-450 code = 756) MEAN PLATELET VOLUME (BEAKER) 9.9 fL 9.4-12.4 (test code = 754) NUCLEATED RED BLOOD CELLS 0 /100 WBC 0-0 (BEAKER) (test code = 413) NEUTROPHILS RELATIVE PERCENT 60 % (BEAKER) (test code = 429) LYMPHOCYTES RELATIVE PERCENT 23 % (BEAKER) (test code = 430) MONOCYTES RELATIVE PERCENT 11 % (BEAKER) (test code = 431) EOSINOPHILS RELATIVE PERCENT 4 % (BEAKER) (test code = 432) BASOPHILS RELATIVE PERCENT 1 % (BEAKER) (test code = 437) NEUTROPHILS ABSOLUTE COUNT 4.38 K/ L 1.78-5.38 (BEAKER) (test code = 670) LYMPHOCYTES ABSOLUTE COUNT 1.69 K/ L 1.32-3.57 (BEAKER) (test code = 414) MONOCYTES ABSOLUTE COUNT (BEAKER) 0.77 K/ L 0.30-0.82 (test code = 415) EOSINOPHILS ABSOLUTE COUNT 0.32 K/ L 0.04-0.54 (BEAKER) (test code = 416) BASOPHILS ABSOLUTE COUNT (BEAKER) 0.08 K/ L 0.01-0.08 (test code = 417) IMMATURE GRANULOCYTES-RELATIVE 0 % 0-1 PERCENT (BEAKER) (test code = 2801) [id number] 20:49:00 Test Item Value Reference Range Interpretation Comments POTASSIUM (BEAKER) (test code = 2.8 meq/L 3.5-5.1 L 379) MR, BRAIN, WITHOUT [id number] 19:25:00Reason for exam:->Ischemic Stroke EvaluationFINAL REPORT MR, [...] Signed: Simran Rajan MDReport Verified Date/Time: 01/22/2019 19:25:11 CT, [facility] [id number] 19:16:00FINAL REPORT CLINICAL HISTORY: Neuro deficit, acute, [...] Simran Rajan MDReport Verified Date/Time: 01/22/2019 19:16:06 CT, [facility], [id number] 19:16:00 FINAL REPORT CLINICAL HISTORY: Neuro deficit, [...] Simran Rajan MDReport Verified Date/Time: 01/22/2019 19:16:06 [id number] 11:47:00 Test Item Value Reference Range Interpretation Comments RPR SCREEN (BEAKER) (test code = Nonreactive Nonreactive 420) [id number] 08:23:00 Test Item Value Reference Range Interpretation Comments MAGNESIUM (BEAKER) (test code = 1.7 mg/dL 1.6-2.6 627) FastingHEMOGLOBIN [id number] 08:10:00 Test Item Value Reference Range Interpretation Comments HEMOGLOBIN A1C (BEAKER) (test code = 5.7 % 4.3-6.1 368) FastingLIPID [id number] 05:15:00 Test Item Value Reference Range Interpretation Comments TRIGLYCERIDES (BEAKER) (test code = 56 mg/dL 540) CHOLESTEROL (BEAKER) (test code = 79 mg/dL 631) HDL CHOLESTEROL (BEAKER) (test code 23 mg/dL = 976) LDL CHOLESTEROL CALCULATED (BEAKER) 45 mg/dL (test code = 633) Triglyceride Reference Range: Low Risk <150 Borderline 150-199 High Risk 200-499 Very High Risk >=500Cholesterol Reference Range: Low Risk <200 Borderline 200-239 High Risk >240HDL Cholesterol Reference Range: Low Risk >=60 High Risk <40LDL Cholesterol Reference Range: Optimal <100 Near Optimal 100-129 Borderline 130-159 High 160-189 Very High >=190 FastingTROPONIN [id number] 05:11:00 Test Item Value Reference Range Interpretation Comments TROPONIN I (BEAKER) (test code = 0.02 ng/mL 0.00-0.03 397) Troponin I (TnI) levels must be interpreted [...] neurological disease, and persistent tachyarrhythmia.FastingVITAMIN B12 AND [id number] 04:01:00 Test Item Value Reference Range Interpretation Comments VITAMIN B12 (BEAKER) (test code = 1973 pg/mL 213-816 H 774) FOLATE (BEAKER) (test code = 362) 18.5 ng/mL >=7.0 TSH/FREE T4 IF [id number] 03:48:00 Test Item Value Reference Range Interpretation Comments THYROID STIMULATING HORMONE 1.38 uIU/mL 0.35-4.94 (BEAKER) (test code = 772) TROPONIN [id number] 00:15:00 Test Item Value Reference Range Interpretation Comments TROPONIN I (BEAKER) (test code = 0.02 ng/mL 0.00-0.03 397) Troponin I (TnI) levels must be interpreted [...] acute neurological disease, and persistent tachyarrhythmia.BASIC METABOLIC [id number] 00:11:00 Test Item Value Reference Range Interpretation Comments SODIUM (BEAKER) 133 meq/L 136-145 L (test code = 381) POTASSIUM (BEAKER) 2.7 meq/L 3.5-5.1 L (test code = 379) CHLORIDE (BEAKER) 95 meq/L 98-107 L (test code = 382) CO2 (BEAKER) (test 28 meq/L 22-29 code = 355) BLOOD UREA NITROGEN 9 mg/dL 7-21 (BEAKER) (test code = 354) CREATININE (BEAKER) 0.82 mg/dL 0.57-1.25 (test code = 358) GLUCOSE RANDOM 139 mg/dL 70-105 H (BEAKER) (test code = 652) CALCIUM (BEAKER) 9.3 mg/dL 8.4-10.2 (test code = 697) EGFR (BEAKER) (test 95 mL/min/1.73 ESTIMA ARLENE GFR IS code = 1092) sq m NOT ACCURATE CREATININE CLEARANCE IN PREDICTING GLOMERULAR FILTRATION RATE . ESTIMATED GFR I S NOT APPLICABLE FOR DIALYSIS PATIEN TS. Specimen slightly ictericPROTHROMBIN [id number] 23:48:00 Test Item Value Reference Range Interpretation Comments PROTIME (BEAKER) (test code = 14.8 seconds 11.9-14.2 H 759) INR (BEAKER) (test code = 370) 1.2 <=5.9 Effective 07/24/2018: PT Reference Range ChangeNew: 11.9-14.2 Previous: 11.7- 14.7RECOMMENDED COUMADIN/WARFARIN INR THERAPY RANGESSTANDARD DOSE: 2.0-3.0 Includes: PROPHYLAXIS for venous thrombosis, systemic embolization; TREATMENT for venous thrombosis and/or pulmonary embolus.HIGH RISK: Target INR is2.5-3.5 for patients wiht mechanical heart valves.RAD, CHEST, 1 VIEW, NON [id number] 23:46:00Reason for exam:->strokeShould this be performed at the bedside?->YesFINAL REPORT INDICATION: stroke TECHNIQUE: Chest radiograph, single view, portable technique. FINDINGS / IMPRESSION: Patient is status post median sternotomy.Heart shadow is enlarged and there is a small right pleural effusion.No overt pulmonary edema, discrete pneumonia, or pneumothorax is demonstrated.Osseous structures unremarkable. Signed: Shyam Grant MDReport VerifiedDate/Time: 01/21/2019 23:46:27 Reading Location: [address] Consult Reading Room CBC W/PLT COUNT & AUTO [id number] 23:39:00 Test Item Value Reference Range Interpretation Comments WHITE BLOOD CELL COUNT (BEAKER) 8.0 K/ L 3.5-10.5 (test code = 775) RED BLOOD CELL COUNT (BEAKER) 5.36 M/ L 4.63-6.08 (test code = 761) HEMOGLOBIN (BEAKER) (test code = 13.5 GM/DL 13.7-17.5 L 410) HEMATOCRIT (BEAKER) (test code = 41.6 % 40.1-51.0 411) MEAN CORPUSCULAR VOLUME (BEAKER) 77.6 fL 79.0-92.2 L (test code = 753) MEAN CORPUSCULAR HEMOGLOBIN 25.2 pg 25.7-32.2 L (BEAKER) (test code = 751) MEAN CORPUSCULAR HEMOGLOBIN CONC 32.5 GM/DL 32.3-36.5 (BEAKER) (test code = 752) RED CELL DISTRIBUTION WIDTH 15.1 % 11.6-14.4 H (BEAKER) (test code = 412) PLATELET COUNT (BEAKER) (test 376 K/CU MM 150-450 code = 756) MEAN PLATELET VOLUME (BEAKER) 9.7 fL 9.4-12.4 (test code = 754) NUCLEATED RED BLOOD CELLS 0 /100 WBC 0-0 (BEAKER) (test code = 413) NEUTROPHILS RELATIVE PERCENT 66 % (BEAKER) (test code = 429) LYMPHOCYTES RELATIVE PERCENT 19 % (BEAKER) (test code = 430) MONOCYTES RELATIVE PERCENT 10 % (BEAKER) (test code = 431) EOSINOPHILS RELATIVE PERCENT 3 % (BEAKER) (test code = 432) BASOPHILS RELATIVE PERCENT 1 % (BEAKER) (test code = 437) NEUTROPHILS ABSOLUTE COUNT 5.30 K/ L 1.78-5.38 (BEAKER) (test code = 670) LYMPHOCYTES ABSOLUTE COUNT 1.52 K/ L 1.32-3.57 (BEAKER) (test code = 414) MONOCYTES ABSOLUTE COUNT (BEAKER) 0.78 K/ L 0.30-0.82 (test code = 415) EOSINOPHILS ABSOLUTE COUNT 0.24 K/ L 0.04-0.54 (BEAKER) (test code = 416) BASOPHILS ABSOLUTE COUNT (BEAKER) 0.08 K/ L 0.01-0.08 (test code = 417) IMMATURE GRANULOCYTES-RELATIVE 1 % 0-1 PERCENT (BEAKER) (test code = 2513)
--- OUTSIDE RECORDS SUMMARY | 2019-07-16 15:38 | XMS REPORT | Summary of Care ---
:1955 Author Organization [facility] Address [address] [place] [id number] Care Team Providers Name Role Phone Dominic Sanchez Unavailable Reason for Visit Reason Comments Refill Request Encounter Details Date Type Department Care Team Description 07/14/2019 Refill [facility] Kinjal Snell MD Refill Request - [address] [place] [address] [place] [phone] Allergies No Known Allergiesdocumented as of this encounter (statuses as of 07/14/2019) Medications Medication Sig Dispensed Refills Start Date [...] as of this encounter (statuses as of 07/14/2019) Active Problems Problem Noted Date Low TSH [...] as of this encounter (statuses as of 07/14/2019) Social History Tobacco Use Types Packs/Day Years [...] 04/07/2016 + pack year history INFLUENZA VACCINE (Season Ended) 2019 HEPATITIS C (HCV) SCREEN Completed 03/28/2016 documented as of this encounter Goals Goal Patient Goal Associated Recent Patient-Stated? Author Type Problems Progress Quit using Tobacco Use No Feli, tobacco Wondiful A, (cigarettes, MD smokeless, etc) documented as of this encounter Results Not on filedocumented in this encounter Insurance Payer Benefit Plan / Group Subscriber ID Effective Dates Phone Address Type [employer] [id number] 2018-Present PPO documented as of this encounter
== END 2019-07-16 15:17 | disposition home or self-care (01) ==
LOC: ER 14:13
DX: Z48.02 Encounter for removal of sutures (principal)

== ENCOUNTER 2019-08-21 18:39 | Inpatient (IN) | payer OTHER ==
--- OUTSIDE RECORDS SUMMARY | 2019-08-21 18:52 | XMS REPORT | Clinical Summary ---
:1955 Author Organization [facility] Address [address] [place] [address] Care Team Providers Name Role Phone Pcp, No Primary Care Provider Unavailable Allergies No Known Allergies Medications Medication Sig Dispensed Refills Start Date End Date Status furosemide (LASIX) Take 40 mg by 0 Active 40 MG tablet mouth 2 (two) times daily. folic acid Take 1 mg by 0 Active (FOLVITE) 1 MG mouth daily. tablet atorvastatin Take 0.5 15 tablet 11 06/09/2019 [...] 5 MG mouth twice a tabletIndications: week. high blood pressure, takes it Sunday and Sunday magnesium oxide Take 400 mg 0 04/25/2019 D iscontinued (MAG-OX) 400 mg by mouth (241.3 mg daily. magnesium) tablet gabapentin Take 300 mg 0 04/25/2019 Discon tinued (NEURONTIN) 300 MG by mouth 3 capsule (three) times daily. metoprolol Take 100 mg 0 04/25/2019 Discon tinued (TOPROL-XL) 100 MG by mouth 2 24 hr (two) times tabletIndications: daily. high blood pressure apixaban (ELIQUIS) Take 1 tablet 60 tablet [...] MEQ tablet mEq total) by mouth daily. amiodarone Take 1 tablet 90 tablet 0 04/26/2019 07/25/2019 Exp ired (PACERONE) 400 MG (400 mg tablet total) by mouth daily for 90 days. apixaban (ELIQUIS) Take 1 tablet 180 tablet 0 04/25/201907/23 5 mg Tab tablet (5 mg total) by mouth 2 (two) times daily for 90 days. aspirin 81 MG Take 1 tablet 90 tablet 0 04/26/2019 07/25/2019 chewable tablet (81 mg total) by mouth daily for 90 days. metoprolol tartrate Take 1 tablet 180 tablet 0 04/25/201906/27 (LOPRESSOR) 25 MG (25 mg total) tablet by mouth 2 (two) times daily for 90 days. midodrine Take 1 tablet 270 tablet 0 04/25/2019 07/24/2019 Exp ired (PROAMATINE) 5 MG (5 mg total) tablet by mouth 3 (three) times daily for 90 days. pantoprazole Take 1 tablet 90 tablet 0 [...] heart failure), NYHA class 4 (HCC); 06/09/2019 Liaz Ray Chronic atrial fibrillation; Simran Licona, Dysphagia, u nspecified type; Hydropneumothorax; Alberto, [place] Acute respirat ory failure with hypoxia and hypercapnia (HCC); MD Ammy Simple chronic bronchitis ([facility]); France Drake History of alcohol use disorder; MD Leonor Severe protein- calorie malnutrition (HCC); Metabolic alkal osis; Elevated liver function tests 05/30/2019 Telephone Critical Care Petrona Fountain, [id number] Call Medicine 05/08/2019 Hospital Encounter Radiology Manoje, [place] Pleural effusion Nia 05/08/2019 Outside Orders Central Scheduling Manoje, [place] Pleura l effusion Nia (Primary Dx) 04/23/2019 Travel 04/14/2019 Surgery Fernando Andrews THORACOSCOPY MD Bob (VATS),DECORTIC ATION 04/14/2019 Anesthesia Event Elham Holguin MD 04/11/2019 Anesthesia Event Gastroenterology Quiana Chavez, ONLINE COMMUNICATIONS SPECIALIST 04/11/2019 Surgery Gastroenterology Gabriel Peña UPPER END OSCOPY,PEG MD Kadeem 03/20/2019 Orders Only General Internal Medicine 03/19/2019 Hospital Encounter Cardiology Robb, Hypovolem ic shock (HCC) (Primary Dx); - Britton Acute hypercapn ic respiratory failure (HCC); 04/25/2019 MD Johnnie Cerebrovascular accident (CVA), unspecif ied mechanism ([facility]); Tomer Lora Acute metaboli c encephalopathy; MD Evelyn Longstanding persistent atrial fibrillat ion; Laya Tabares, Moderate pr otein-calorie malnutrition (HCC); Jerald Whitney, Acute on chr onic diastolic CHF (congestive heart failure), NYHA class 4 ([facility]); Atrial fibrillation with RVR ([facility]); Jean Marie Leukocytosis, u nspecified type; Britton Other specified hypotension; MD Irineo Chronic pleural effusion; Areli Hong MD Bilateral pleural effusion; Nalam, Yahaira Acute respirato ry failure with hypoxia and hypercapnia ([facility]); MD Sangita Aspiration pneumonia, unspecified aspira tion pneumonia type, unspecified laterality, unspecified part of lung ([facility]); Bharti Kamara MD Acute on chronic respiratory [...] PAF (paroxysmal atrial fibrillation) (HC C); 01/24/2019 Joy, Hx of CABG MD Isabel Mora Alok, MD 01/21/2019 Documentation Internal Medicine Inna Bailey MD after 08/20/2018 Family History Medical History Relation Name Comments [...] containing 4 or more times a w [place] 01/21/2019 alcohol? How many drinks containing alcohol [...] RHYTHM STRIP - SCAN 05/01/2019 5:29 PM WET MILLING WHEEL OPERATOR RHYTHM STRIP - SCAN 04/28/2019 3:01 PM WET MILLING WHEEL OPERATOR RHYTHM STRIP - SCAN 04/28/2019 3:01 PM WET MILLING WHEEL OPERATOR XR CHEST 1 VIEW Routine 04/25/2019 6:45 Results for PORTABLE/BEDSIDE AM WET MILLING WHEEL OPERATOR this proced ure are in the results section. CBC W/PLT COUNT & AUTO Routine 04/25/2019 4:52 R esults for DIFFERENTIAL AM WET MILLING WHEEL OPERATOR this procedure are in the results section. PHOSPHORUS Routine 04/25/2019 4:52 Results for AM WET MILLING WHEEL OPERATOR this procedure are in the results section. MAGNESIUM Routine 04/25/2019 4:52 Results for AM WET MILLING WHEEL OPERATOR this procedure are in the results section. CBC W/PLT COUNT & AUTO Routine 04/25/2019 4:52 R esults for DIFFERENTIAL AM WET MILLING WHEEL OPERATOR this procedure are in the results section. BASIC METABOLIC PANEL (7) Routine 04/25/2019 4:52 Results for AM WET MILLING WHEEL OPERATOR this procedure are in the results section. XR CHEST 1 VIEW Routine 04/24/2019 6:56 Results for PORTABLE/BEDSIDE AM WET MILLING WHEEL OPERATOR this proced ure are in the results section. CBC W/PLT COUNT & AUTO Routine 04/24/2019 4:11 R esults for DIFFERENTIAL AM WET MILLING WHEEL OPERATOR this procedure are in the results section. PHOSPHORUS Routine 04/24/2019 4:11 Results for AM WET MILLING WHEEL OPERATOR this procedure are in the results section. MAGNESIUM Routine 04/24/2019 4:11 Results for AM WET MILLING WHEEL OPERATOR this procedure are in the results section. CBC W/PLT COUNT & AUTO Routine 04/24/2019 4:11 R esults for DIFFERENTIAL AM WET MILLING WHEEL OPERATOR this procedure are in the results section. BASIC METABOLIC PANEL (7) Routine 04/24/2019 4:11 Results for AM WET MILLING WHEEL OPERATOR this procedure are in the results section. XR CHEST 1 VIEW Routine 04/23/2019 1:57 Results for PORTABLE/BEDSIDE PM WET MILLING WHEEL OPERATOR this proced ure are in the results section. XR CHEST 1 VIEW Routine 04/23/2019 6:31 Results for PORTABLE/BEDSIDE AM WET MILLING WHEEL OPERATOR this proced ure are in the results section. CBC W/PLT COUNT & AUTO Routine 04/23/2019 3:53 R esults for DIFFERENTIAL AM WET MILLING WHEEL OPERATOR this procedure are in the results section. PREALBUMIN Routine 04/23/2019 3:53 Results for AM WET MILLING WHEEL OPERATOR this procedure are in the results section. PHOSPHORUS Routine 04/23/2019 3:53 Results for AM WET MILLING WHEEL OPERATOR this procedure are in the results section. MAGNESIUM Routine 04/23/2019 3:53 Results for AM WET MILLING WHEEL OPERATOR this procedure are in the results section. CBC W/PLT COUNT & AUTO Routine 04/23/2019 3:53 R esults for DIFFERENTIAL AM WET MILLING WHEEL OPERATOR this procedure are in the results section. BASIC METABOLIC PANEL (7) Routine 04/23/2019 3:53 Results for AM WET MILLING WHEEL OPERATOR this procedure are in the results section. XR ESOPH SWALLOW FUNCTION Routine 04/22/2019 2:30 Results for W/CINE VIDEO PM W[employer] MILLING WHEEL OPERATOR this procedure are in the results section. XR CHEST 1 VIEW Routine 04/22/2019 5:49 Results for PORTABLE/BEDSIDE AM WET MILLING WHEEL OPERATOR this proced ure are in the results section. PHOSPHORUS Routine 04/22/2019 4:02 Results for AM WET MILLING WHEEL OPERATOR this procedure are in the results section. MAGNESIUM Routine 04/22/2019 4:02 Results for AM WET MILLING WHEEL OPERATOR this procedure are in the results section. BASIC METABOLIC PANEL (7) Routine 04/22/2019 4:02 Results for AM WET MILLING WHEEL OPERATOR this procedure are in the results section. CBC W/PLT COUNT & AUTO Routine 04/22/2019 3:23 R esults for DIFFERENTIAL AM WET MILLING WHEEL OPERATOR this procedure are in the results section. CBC W/PLT COUNT & AUTO Routine 04/22/2019 3:23 R esults for DIFFERENTIAL AM WET MILLING WHEEL OPERATOR this procedure are in the results section. MAGNESIUM Routine 04/21/2019 12:23 Results for PM WET MILLING WHEEL OPERATOR this procedure are in the results section. BASIC METABOLIC PANEL (7) Routine 04/21/2019 12:23 Results for PM WET MILLING WHEEL OPERATOR this procedure are in the results section. XR CHEST 1 VIEW Routine 04/21/2019 3:59 Results for PORTABLE/BEDSIDE AM WET MILLING WHEEL OPERATOR this proced ure are in the results section. PHOSPHORUS Routine 04/21/2019 3:43 Results for AM WET MILLING WHEEL OPERATOR this procedure are in the results section. MAGNESIUM Routine 04/21/2019 3:43 Results for AM WET MILLING WHEEL OPERATOR this procedure are in the results section. BASIC METABOLIC PANEL (7) Routine 04/21/2019 3:43 Results for AM WET MILLING WHEEL OPERATOR this procedure are in the results section. CBC W/PLT COUNT & AUTO Routine 04/21/2019 3:42 R esults for DIFFERENTIAL AM WET MILLING WHEEL OPERATOR this procedure are in the results section. CBC W/PLT COUNT & AUTO Routine 04/21/2019 3:42 R esults for DIFFERENTIAL AM WET MILLING WHEEL OPERATOR this procedure are in the results section. CBC W/PLT COUNT & AUTO Routine 04/20/2019 3:19 R esults for DIFFERENTIAL PM WET MILLING WHEEL OPERATOR this procedure are in the results section. MAGNESIUM Routine 04/20/2019 3:19 Results for PM WET MILLING WHEEL OPERATOR this procedure are in the results section. CBC W/PLT COUNT & AUTO Routine 04/20/2019 3:19 R esults for DIFFERENTIAL PM WET MILLING WHEEL OPERATOR this procedure are in the results section. PHOSPHORUS Routine 04/20/2019 3:19 Results for PM WET MILLING WHEEL OPERATOR this procedure are in the results section. BASIC METABOLIC PANEL (7) Routine 04/20/2019 3:19 Results for PM WET MILLING WHEEL OPERATOR this procedure are in the results section. POCT-GLUCOSE METER Routine 04/20/2019 12:17 Resul ts for PM WET MILLING WHEEL OPERATOR this procedure are in the results section. XR CHEST 1 VIEW Routine 04/20/2019 5:50 Results for PORTABLE/BEDSIDE AM WET MILLING WHEEL OPERATOR this proced ure are in the results section. CBC W/PLT COUNT & AUTO Routine 04/20/2019 3:21 R esults for DIFFERENTIAL AM WET MILLING WHEEL OPERATOR this procedure are in the results section. MAGNESIUM Routine 04/20/2019 3:21 Results for AM WET MILLING WHEEL OPERATOR this procedure are in the results section. CBC W/PLT COUNT & AUTO Routine 04/20/2019 3:21 R esults for DIFFERENTIAL AM WET MILLING WHEEL OPERATOR this procedure are in the results section. PHOSPHORUS Routine 04/20/2019 3:21 Results for AM WET MILLING WHEEL OPERATOR this procedure are in the results section. BASIC METABOLIC PANEL (7) Routine 04/20/2019 3:21 Results for AM WET MILLING WHEEL OPERATOR this procedure are in the results section. POCT-GLUCOSE METER Routine 04/20/2019 12:07 Resul ts for AM WET MILLING WHEEL OPERATOR this procedure are in the results section. TRANSFUSION SERVICE 04/19/2019 6:02 REPORT - SCAN PM WET MILLING WHEEL OPERATOR CBC W/PLT COUNT & AUTO Routine 04/19/2019 5:34 R esults for DIFFERENTIAL PM WET MILLING WHEEL OPERATOR this procedure are in the results section. MAGNESIUM Routine 04/19/2019 5:34 Results for PM WET MILLING WHEEL OPERATOR this procedure are in the results section. CBC W/PLT COUNT & AUTO Routine 04/19/2019 5:34 R esults for DIFFERENTIAL PM WET MILLING WHEEL OPERATOR this procedure are in the results section. PHOSPHORUS Routine 04/19/2019 5:34 Results for PM WET MILLING WHEEL OPERATOR this procedure are in the results section. BASIC METABOLIC PANEL (7) Routine 04/19/2019 5:34 Results for PM WET MILLING WHEEL OPERATOR this procedure are in the results section. XR CHEST 1 VIEW Routine 04/19/2019 5:48 Results for PORTABLE/BEDSIDE AM WET MILLING WHEEL OPERATOR this proced ure are in the results section. CBC W/PLT COUNT & AUTO Routine 04/19/2019 3:26 R esults for DIFFERENTIAL AM WET MILLING WHEEL OPERATOR this procedure are in the results section. MAGNESIUM Routine 04/19/2019 3:26 Results for AM WET MILLING WHEEL OPERATOR this procedure are in the results section. CBC W/PLT COUNT & AUTO Routine 04/19/2019 3:26 R esults for DIFFERENTIAL AM WET MILLING WHEEL OPERATOR this procedure are in the results section. PHOSPHORUS Routine 04/19/2019 3:26 Results for AM WET MILLING WHEEL OPERATOR this procedure are in the results section. BASIC METABOLIC PANEL (7) Routine 04/19/2019 3:26 Results for AM WET MILLING WHEEL OPERATOR this procedure are in the results section. POCT-GLUCOSE METER Routine 04/19/2019 12:23 Resul ts for AM WET MILLING WHEEL OPERATOR this procedure are in the results section. PREPARE LEUKO-REDUCED RBC Routine 04/18/2019 11:54 Results for PM WET MILLING WHEEL OPERATOR this procedure are in the results section. POCT-GLUCOSE METER Routine 04/18/2019 6:27 Resul ts for PM WET MILLING WHEEL OPERATOR this procedure are in the results section. TRANSFUSION SERVICE 04/18/2019 6:02 REPORT - SCAN PM WET MILLING WHEEL OPERATOR CBC W/PLT COUNT & AUTO Routine 04/18/2019 6:02 R esults for DIFFERENTIAL PM WET MILLING WHEEL OPERATOR this procedure are in the results section. MAGNESIUM Routine 04/18/2019 6:02 Results for PM WET MILLING WHEEL OPERATOR this procedure are in the results section. CBC W/PLT COUNT & AUTO Routine 04/18/2019 6:02 R esults for DIFFERENTIAL PM WET MILLING WHEEL OPERATOR this procedure are in the results section. PHOSPHORUS Routine 04/18/2019 6:02 Results for PM WET MILLING WHEEL OPERATOR this procedure are in the results section. BASIC METABOLIC PANEL (7) Routine 04/18/2019 6:02 Results for PM WET MILLING WHEEL OPERATOR this procedure are in the results section. POCT-GLUCOSE METER Routine 04/18/2019 11:46 Resul ts for AM WET MILLING WHEEL OPERATOR this procedure are in the results section. POCT-GLUCOSE METER Routine 04/18/2019 5:54 Resul ts for AM WET MILLING WHEEL OPERATOR this procedure are in the results section. XR CHEST 1 VIEW Routine 04/18/2019 5:36 Results for PORTABLE/BEDSIDE AM WET MILLING WHEEL OPERATOR this proced ure are in the results section. BLOOD GAS, ARTERIAL Routine 04/18/2019 2:37 Resu lts for AM WET MILLING WHEEL OPERATOR this procedure are in the results section. CBC W/PLT COUNT & AUTO Routine 04/18/2019 2:36 R esults for DIFFERENTIAL AM WET MILLING WHEEL OPERATOR this procedure are in the results section. MAGNESIUM Routine 04/18/2019 2:36 Results for AM WET MILLING WHEEL OPERATOR this procedure are in the results section. CBC W/PLT COUNT & AUTO Routine 04/18/2019 2:36 R esults for DIFFERENTIAL AM WET MILLING WHEEL OPERATOR this procedure are in the results section. PHOSPHORUS Routine 04/18/2019 2:36 Results for AM WET MILLING WHEEL OPERATOR this procedure are in the results section. BASIC METABOLIC PANEL (7) Routine 04/18/2019 2:36 Results for AM WET MILLING WHEEL OPERATOR this procedure are in the results section. POCT-GLUCOSE METER Routine 04/18/2019 12:19 Resul ts for AM WET MILLING WHEEL OPERATOR this procedure are in the results section. POCT-GLUCOSE METER Routine 04/17/2019 6:30 Resul ts for PM WET MILLING WHEEL OPERATOR this procedure are in the results section. TRANSFUSION SERVICE 04/17/2019 5:52 REPORT - SCAN PM WET MILLING WHEEL OPERATOR BLOOD GAS, ARTERIAL Routine 04/17/2019 4:17 Resu lts for PM WET MILLING WHEEL OPERATOR this procedure are in the results section. CBC W/PLT COUNT & AUTO Routine 04/17/2019 4:16 R esults for DIFFERENTIAL PM WET MILLING WHEEL OPERATOR this procedure are in the results section. MAGNESIUM Routine 04/17/2019 4:16 Results for PM WET MILLING WHEEL OPERATOR this procedure are in the results section. CBC W/PLT COUNT & AUTO Routine 04/17/2019 4:16 R esults for DIFFERENTIAL PM WET MILLING WHEEL OPERATOR this procedure are in the results section. PHOSPHORUS Routine 04/17/2019 4:16 Results for PM WET MILLING WHEEL OPERATOR this procedure are in the results section. BASIC METABOLIC PANEL (7) Routine 04/17/2019 4:16 Results for PM WET MILLING WHEEL OPERATOR this procedure are in the results section. POCT-GLUCOSE METER Routine 04/17/2019 1:14 Resul ts for PM WET MILLING WHEEL OPERATOR this procedure are in the results section. TRANSFUSE LEUKO-REDUCED Routine 04/17/2019 11:41 RED BLOOD CELLS AM WET MILLING WHEEL OPERATOR XR CHEST 1 VIEW Routine 04/17/2019 6:07 Results for PORTABLE/BEDSIDE AM WET MILLING WHEEL OPERATOR this proced ure are in the results section. POCT-GLUCOSE METER Routine 04/17/2019 5:32 Resul ts for AM WET MILLING WHEEL OPERATOR this procedure are in the results section. CBC W/PLT COUNT & AUTO Routine 04/17/2019 3:30 R esults for DIFFERENTIAL AM WET MILLING WHEEL OPERATOR this procedure are in the results section. MAGNESIUM Routine 04/17/2019 3:30 Results for AM WET MILLING WHEEL OPERATOR this procedure are in the results section. APTT Routine 04/17/2019 3:30 Results for AM WET MILLING WHEEL OPERATOR this procedure are in the results section. PROTHROMBIN TIME/INR Routine 04/17/2019 3:30 Res ults for AM WET MILLING WHEEL OPERATOR this procedure are in the results section. CBC W/PLT COUNT & AUTO Routine 04/17/2019 3:30 R esults for DIFFERENTIAL AM WET MILLING WHEEL OPERATOR this procedure are in the results section. PHOSPHORUS Routine 04/17/2019 3:30 Results for AM WET MILLING WHEEL OPERATOR this procedure are in the results section. BASIC METABOLIC PANEL (7) Routine 04/17/2019 3:30 Results for AM WET MILLING WHEEL OPERATOR this procedure are in the results section. BLOOD GAS, ARTERIAL Routine 04/17/2019 3:30 Resu lts for AM WET MILLING WHEEL OPERATOR this procedure are in the results section. HEMOGLOBIN AND HEMATOCRIT STAT 04/17/2019 12:27 Results for AM WET MILLING WHEEL OPERATOR this procedure are in the results section. POCT-GLUCOSE METER Routine 04/17/2019 12:10 Resul ts for AM WET MILLING WHEEL OPERATOR this procedure are in the results section. PREPARE LEUKO-REDUCED RBC STAT 04/16/2019 11:54 Results for PM W[employer] MILLING WHEEL OPERATOR this procedure are in the results section. PREPARE LEUKO-REDUCED RBC STAT 04/16/2019 11:54 Results for PM WET MILLING WHEEL OPERATOR this procedure are in the results section. PREPARE LEUKO-REDUCED RBC STAT 04/16/2019 11:54 Results for PM WET MILLING WHEEL OPERATOR this procedure are in the results section. PREPARE PLASMA STAT 04/16/2019 11:54 Results f or PM WET MILLING WHEEL OPERATOR this procedure are in the results section. PREPARE CRYOPRECIPITATE Routine 04/16/2019 11:54 Results for PM WET MILLING WHEEL OPERATOR this procedure are in the results section. PREPARE LEUKO-REDUCED RBC Routine 04/16/2019 11:54 Results for PM WET MILLING WHEEL OPERATOR this procedure are in the results section. PREPARE LEUKO-REDUCED RBC Routine 04/16/2019 11:54 Results for PM WET MILLING WHEEL OPERATOR this procedure are in the results section. PERIPHERAL VASCULAR 04/16/2019 9:23 REPORT - SCAN PM WET MILLING WHEEL OPERATOR POCT-GLUCOSE METER Routine 04/16/2019 6:48 Resul ts for PM WET MILLING WHEEL OPERATOR this procedure are in the results section. TRANSFUSION SERVICE 04/16/2019 5:52 REPORT - SCAN PM WET MILLING WHEEL OPERATOR CBC W/PLT COUNT & AUTO Routine 04/16/2019 4:02 R esults for DIFFERENTIAL PM W[employer] MILLING WHEEL OPERATOR this procedure are in the results section. BASIC METABOLIC PANEL (7) Routine 04/16/2019 4:02 Results for PM WET MILLING WHEEL OPERATOR this procedure are in the results section. CBC W/PLT COUNT & AUTO Routine 04/16/2019 4:02 R esults for DIFFERENTIAL PM WET MILLING WHEEL OPERATOR this procedure are in the results section. PHOSPHORUS Routine 04/16/2019 4:02 Results for PM WET MILLING WHEEL OPERATOR this procedure are in the results section. BLOOD GAS, ARTERIAL Routine 04/16/2019 4:02 Resu lts for PM WET MILLING WHEEL OPERATOR this procedure are in the results section. POCT-GLUCOSE METER Routine 04/16/2019 1:24 Resul ts for PM WET MILLING WHEEL OPERATOR this procedure are in the results section. HEMOGLOBIN AND HEMATOCRIT Routine 04/16/2019 9:09 Results for AM WET MILLING WHEEL OPERATOR this procedure are in the results section. XR CHEST 1 VIEW Routine 04/16/2019 3:46 Results for PORTABLE/BEDSIDE AM WET MILLING WHEEL OPERATOR this proced ure are in the results section. CBC W/PLT COUNT & AUTO Routine 04/16/2019 3:28 R esults for DIFFERENTIAL AM WET MILLING WHEEL OPERATOR this procedure are in the results section. CALCIUM, IONIZED STAT 04/16/2019 3:28 Results for AM WET MILLING WHEEL OPERATOR this procedure are in the results section. APTT Routine 04/16/2019 3:28 Results for AM WET MILLING WHEEL OPERATOR this procedure are in the results section. PROTHROMBIN TIME/INR Routine 04/16/2019 3:28 Res ults for AM WET MILLING WHEEL OPERATOR this procedure are in the results section. CBC W/PLT COUNT & AUTO Routine 04/16/2019 3:28 R esults for DIFFERENTIAL AM WET MILLING WHEEL OPERATOR this procedure are in the results section. PHOSPHORUS Routine 04/16/2019 3:28 Results for AM WET MILLING WHEEL OPERATOR this procedure are in the results section. BASIC METABOLIC PANEL (7) Routine 04/16/2019 3:28 Results for AM WET MILLING WHEEL OPERATOR this procedure are in the results section. MAGNESIUM Routine 04/16/2019 3:28 Results for AM WET MILLING WHEEL OPERATOR this procedure are in the results section. BLOOD GAS, ARTERIAL Routine 04/16/2019 3:24 Resu lts for AM WET MILLING WHEEL OPERATOR this procedure are in the results section. TRANSFUSE LEUKO-REDUCED Routine 04/16/2019 1:54 RED BLOOD CELLS AM WET MILLING WHEEL OPERATOR POCT-GLUCOSE METER Routine 04/15/2019 11:14 Resul ts for PM WET MILLING WHEEL OPERATOR this procedure are in the results section. CBC W/PLT COUNT & AUTO Routine 04/15/2019 10:51 R esults for DIFFERENTIAL PM WET MILLING WHEEL OPERATOR this procedure are in the results section. CBC W/PLT COUNT & AUTO Routine 04/15/2019 10:51 R esults for DIFFERENTIAL PM WET MILLING WHEEL OPERATOR this procedure are in the results section. TRANSFUSE LEUKO-REDUCED Routine 04/15/2019 9:45 RED BLOOD CELLS PM WET MILLING WHEEL OPERATOR TRANSFUSION SERVICE 04/15/2019 6:08 REPORT - SCAN PM WET MILLING WHEEL OPERATOR US GUIDE, VASCULAR ACCESS Routine 04/15/2019 5:48 Hypovolemic shock Results for PM WET MILLING WHEEL OPERATOR (HCC) this procedure are in the results section. INSERT NON-TUNNEL CV CATH Routine 04/15/2019 5:48 Hypovolemic shock Results for PM WET MILLING WHEEL OPERATOR (HCC) this procedure are in the results section. BLOOD GAS, ARTERIAL Routine 04/15/2019 4:04 Resu lts for PM WET MILLING WHEEL OPERATOR this procedure are in the results section. CBC W/PLT COUNT & AUTO Routine 04/15/2019 4:03 R esults for DIFFERENTIAL PM WET MILLING WHEEL OPERATOR this procedure are in the results section. CBC W/PLT COUNT & AUTO Routine 04/15/2019 4:03 R esults for DIFFERENTIAL PM WET MILLING WHEEL OPERATOR this procedure are in the results section. PHOSPHORUS Routine 04/15/2019 4:03 Results for PM WET MILLING WHEEL OPERATOR this procedure are in the results section. BASIC METABOLIC PANEL (7) Routine 04/15/2019 4:03 Results for PM WET MILLING WHEEL OPERATOR this procedure are in the results section. TRANSFUSE LEUKO-REDUCED STAT 04/15/2019 2:21 RED BLOOD CELLS PM WET MILLING WHEEL OPERATOR XR CHEST 1 VIEW STAT 04/15/2019 2:01 Results for PORTABLE/BEDSIDE PM WET MILLING WHEEL OPERATOR this proced ure are in the results section. VENOUS DOPPLER ARM, LEFT CHRISSIE 04/15/2019 11:30 Results for AM WET MILLING WHEEL OPERATOR this procedure are in the results section. THROMBOELASTOGRAPH (TEG) STAT 04/15/2019 11:28 Results for AM WET MILLING WHEEL OPERATOR this procedure are in the results section. POCT-GLUCOSE METER Routine 04/15/2019 11:22 Resul ts for AM WET MILLING WHEEL OPERATOR this procedure are in the results section. TRANSFUSE PLASMA Routine 04/15/2019 11:03 AM WET MILLING WHEEL OPERATOR ECG 12-LEAD Routine 04/15/2019 10:36 AM WET MILLING WHEEL OPERATOR Procedure Note - Interface, External Ris In - 04/15/2019 10:41 AM WET MILLING WHEEL OPERATOR Ventricular Rate 51 BPM Atrial Rate 51 BPM QRS Duration 118 ms Q-T Interval 492 ms QTC Calculation(Bazett) 453 ms P [place] 63 degrees R [place] 23 degrees T [place] 5 degrees Sinus bradycardia Septal infarct , age undeter mined Abnormal ECG When compared with ECG of 12:19, Septal infarct is now Presen t Nonspecific T wave abnormali ty now evident in Lateral leads ECG 12-LEAD STAT 04/15/2019 10:36 AM Results for this WET MILLING WHEEL OPERATOR procedure are i n the results section. ECG 12-LEAD Routine 04/15/2019 10:35 AM Results for this WET MILLING WHEEL OPERATOR procedure are i n the results section. TRANSFUSE Routine 04/15/2019 9:22 AM CRYOPRECIPITATE WET MILLING WHEEL OPERATOR CBC W/PLT COUNT & AUTO STAT 04/15/2019 8:52 AM Results for this DIFFERENTIAL WET MILLING WHEEL OPERATOR procedure are i n the results section. CBC W/PLT COUNT & AUTO STAT 04/15/2019 8:52 AM Results for this DIFFERENTIAL WET MILLING WHEEL OPERATOR procedure are i n the results section. TRANSFUSE LEUKO-REDUCED Routine 04/15/2019 7:56 AM RED BLOOD CELLS WET MILLING WHEEL OPERATOR TRANSFUSE LEUKO-REDUCED Routine 04/15/2019 6:24 AM RED BLOOD CELLS WET MILLING WHEEL OPERATOR XR CHEST 1 VIEW Routine 04/15/2019 4:38 AM Resul ts for this PORTABLE/BEDSIDE WET MILLING WHEEL OPERATOR procedure a re in the results section. BLOOD GAS, ARTERIAL Routine 04/15/2019 4:07 AM R esults for this WET MILLING WHEEL OPERATOR procedure are i n the results section. CBC W/PLT COUNT & AUTO Routine 04/15/2019 4:05 AM Results for this DIFFERENTIAL WET MILLING WHEEL OPERATOR procedure are i n the results section. CBC W/PLT COUNT & AUTO Routine 04/15/2019 4:05 AM Results for this DIFFERENTIAL WET MILLING WHEEL OPERATOR procedure are i n the results section. CALCIUM, IONIZED Routine 04/15/2019 4:05 AM Resu lts for this W[employer] M[employer]ING WHEEL OPERATOR procedure are i n the results section. LACTIC ACID, ARTERIAL Routine 04/15/2019 4:05 AM Results for this W[employer] MILLING WHEEL OPERATOR procedure are i n the results section. PHOSPHORUS Routine 04/15/2019 4:05 AM Results for this WET MILLING WHEEL OPERATOR procedure are i n the results section. BASIC METABOLIC PANEL Routine 04/15/2019 4:05 AM Results for this (7) WET M[employer]ING WHEEL OPERATOR procedure are i n the results section. MAGNESIUM Routine 04/15/2019 4:05 AM Results for this WET MILLING WHEEL OPERATOR procedure are i n the results section. TRANSFUSE LEUKO-REDUCED Routine 04/15/2019 3:39 AM RED BLOOD CELLS WET MILLING WHEEL OPERATOR TRANSFUSE LEUKO-REDUCED Routine 04/15/2019 2:17 AM RED BLOOD CELLS WET MILLING WHEEL OPERATOR FIBRINOGEN Routine 04/15/2019 1:58 AM Results for this WET MILLING WHEEL OPERATOR procedure are i n the results section. PT/APTT STAT 04/15/2019 1:58 AM Results for this WET MILLING WHEEL OPERATOR procedure are i n the results section. APTT Routine 04/15/2019 1:58 AM Results for this W[employer] MILLING WHEEL OPERATOR procedure are i n the results section. PROTHROMBIN TIME/INR Routine 04/15/2019 1:58 AM Results for this WET MILLING WHEEL OPERATOR procedure are i n the results section. POCT-GLUCOSE METER Routine 04/15/2019 12:23 AM Re sults for this W[employer] MILLING WHEEL OPERATOR procedure are i n the results section. CBC W/PLT COUNT & AUTO Routine 04/15/2019 12:07 AM Results for this DIFFERENTIAL WET MILLING WHEEL OPERATOR procedure are i n the results section. CBC W/PLT COUNT & AUTO Routine 04/15/2019 12:07 AM Results for this DIFFERENTIAL W[employer] MILLING WHEEL OPERATOR procedure are i n the results section. CORTISOL Routine 04/15/2019 12:07 AM Results for this W[employer] M[employer]ING WHEEL OPERATOR procedure are i n the results section. XR CHEST 1 VIEW STAT 04/14/2019 8:32 PM Resul ts for this PORTABLE/BEDSIDE WET MILLING WHEEL OPERATOR procedure a re in the results section. BLOOD GAS, ARTERIAL STAT 04/14/2019 8:00 PM R esults for this W[employer] M[employer]ING WHEEL OPERATOR procedure are i n the results section. CALCIUM, IONIZED Routine 04/14/2019 7:57 PM Resu lts for this W[employer] M[employer]ING WHEEL OPERATOR procedure are i n the results section. PHOSPHORUS Routine 04/14/2019 7:57 PM Results for this WET M[employer]ING WHEEL OPERATOR procedure are i n the results section. MAGNESIUM Routine 04/14/2019 7:57 PM Results for this W[employer] MILLING WHEEL OPERATOR procedure are i n the results section. AFB CULTURE + SMEAR Routine 04/14/2019 6:48 PM R esults for this (NON-SPUTUM) WET M[employer]ING WHEEL OPERATOR procedure are i n the results section. FUNGUS CULTURE + SMEAR Routine 04/14/2019 6:48 PM Results for this WET M[employer]ING WHEEL OPERATOR procedure are i n the results section. SPIN/CONCENTRATION Routine 04/14/2019 6:48 PM Re sults for this CHARGE W[employer] M[employer]ING WHEEL OPERATOR procedure are i n the results section. BRONCHIAL CULTURE + GRAM Routine 04/14/2019 6:48 PM Results for this STAIN WET M[employer]ING WHEEL OPERATOR procedure are i n the results section. HGB/HCT (H&H) - STAT LAB STAT 04/14/2019 5:49 PM Results for this W[employer] M[employer]ING WHEEL OPERATOR procedure are i n the results section. GLUCOSE-STAT LAB STAT 04/14/2019 5:49 PM Resu lts for this W[employer] M[employer]ING WHEEL OPERATOR procedure are i n the results section. POTASSIUM-STAT LAB STAT 04/14/2019 5:49 PM Re sults for this W[employer] M[employer]ING WHEEL OPERATOR procedure are i n the results section. SODIUM NA-STAT LAB STAT 04/14/2019 5:49 PM Re sults for this WET M[employer]ING WHEEL OPERATOR procedure are i n the results section. BLOOD GAS, ARTERIAL STAT 04/14/2019 5:49 PM R esults for this WET MILLING WHEEL OPERATOR procedure are i n the results section. CALCIUM, IONIZED STAT 04/14/2019 5:49 PM Resu lts for this W[employer] M[employer]ING WHEEL OPERATOR procedure are i n the results section. RRL CRITICAL LABS STAT 04/14/2019 5:49 PM Res ults for this (ABG,NA,K,H&H,GLUCOSE) WET M[employer]ING WHEEL OPERATOR proce dure are in the results section. SURGICALLY OBTAINED Routine 04/14/2019 5:15 PM R esults for this CULTURE + GRAM STAIN W[employer] M[employer]ING WHEEL OPERATOR procedu re are in the results section. FUNGUS CULTURE + SMEAR Routine 04/14/2019 5:15 PM Results for this W[employer] M[employer]ING WHEEL OPERATOR procedure are i n the results section. ANAEROBIC CULTURE Routine 04/14/2019 5:15 PM Res ults for this W[employer] M[employer]ING WHEEL OPERATOR procedure are i n the results section. AFB CULTURE + SMEAR Routine 04/14/2019 5:15 PM R esults for this (NON-SPUTUM) WET MILLING WHEEL OPERATOR procedure are i n the results section. SURGICALLY OBTAINED Routine 04/14/2019 5:10 PM R esults for this CULTURE + GRAM STAIN W[employer] M[employer]ING WHEEL OPERATOR procedu re are in the results section. FUNGUS CULTURE + SMEAR Routine 04/14/2019 5:10 PM Results for this W[employer] M[employer]ING WHEEL OPERATOR procedure are i n the results section. ANAEROBIC CULTURE Routine 04/14/2019 5:10 PM Res ults for this W[employer] M[employer]ING WHEEL OPERATOR procedure are i n the results section. AFB CULTURE + SMEAR Routine 04/14/2019 5:10 PM R esults for this (NON-SPUTUM) WET MILLING WHEEL OPERATOR procedure are i n the results section. FUNGUS CULTURE + SMEAR Routine 04/14/2019 5:08 PM Results for this W[employer] M[employer]ING WHEEL OPERATOR procedure are i n the results section. SURGICALLY OBTAINED Routine 04/14/2019 5:08 PM R esults for this CULTURE + GRAM STAIN W[employer] M[employer]ING WHEEL OPERATOR procedu re are in the results section. ANAEROBIC CULTURE Routine 04/14/2019 5:08 PM Res ults for this WET MILLING WHEEL OPERATOR procedure are i n the results section. AFB CULTURE + SMEAR Routine 04/14/2019 5:08 PM R esults for this (NON-SPUTUM) WET MILLING WHEEL OPERATOR procedure are i n the results section. SURGICALLY OBTAINED Routine 04/14/2019 5:00 PM R esults for this CULTURE + GRAM STAIN W[employer] M[employer]ING WHEEL OPERATOR procedu re are in the results section. FUNGUS CULTURE + SMEAR Routine 04/14/2019 5:00 PM Results for this W[employer] M[employer]ING WHEEL OPERATOR procedure are i n the results section. ANAEROBIC CULTURE Routine 04/14/2019 5:00 PM Res ults for this W[employer] M[employer]ING WHEEL OPERATOR procedure are i n the results section. AFB CULTURE + SMEAR Routine 04/14/2019 5:00 PM R esults for this (NON-SPUTUM) WET MILLING WHEEL OPERATOR procedure are i n the results section. TISSUE EXAM AP Routine 04/14/2019 4:54 PM Results for this W[employer]ING WHEEL OPERATOR procedure are i n the results section. HGB/HCT (H&H) - STAT LAB STAT 04/14/2019 4:30 PM Results for this W[employer]ING WHEEL OPERATOR procedure are i n the results section. GLUCOSE-STAT LAB STAT 04/14/2019 4:30 PM Resu lts for this W[employer] M[employer]ING WHEEL OPERATOR procedure are i n the results section. POTASSIUM-STAT LAB STAT 04/14/2019 4:30 PM Re sults for this W[employer] M[employer]ING WHEEL OPERATOR procedure are i n the results section. SODIUM NA-STAT LAB STAT 04/14/2019 4:30 PM Re sults for this W[employer] M[employer]ING WHEEL OPERATOR procedure are i n the results section. BLOOD GAS, ARTERIAL STAT 04/14/2019 4:30 PM R esults for this W[employer] M[employer]ING WHEEL OPERATOR procedure are i n the results section. CALCIUM, IONIZED STAT 04/14/2019 4:30 PM Resu lts for this W[employer] M[employer]ING WHEEL OPERATOR procedure are i n the results section. RRL CRITICAL LABS STAT 04/14/2019 4:30 PM Res ults for this (ABG,NA,K,H&H,GLUCOSE) WET M[employer]ING WHEEL OPERATOR proce dure are in the results section. CYTOLOGY AP Routine 04/14/2019 3:48 PM Results for this W[employer] M[employer]ING WHEEL OPERATOR procedure are i n the results section. ANAEROBIC CULTURE Routine 04/14/2019 3:41 PM Res ults for this W[employer] M[employer]ING WHEEL OPERATOR procedure are i n the results section. FUNGUS CULTURE + SMEAR Routine 04/14/2019 3:41 PM Results for this W[employer] M[employer]ING WHEEL OPERATOR procedure are i n the results section. AFB CULTURE + SMEAR Routine 04/14/2019 3:41 PM R esults for this (NON-SPUTUM) WET MILLING WHEEL OPERATOR procedure are i n the results section. SURGICALLY OBTAINED Routine 04/14/2019 3:41 PM R esults for this CULTURE + GRAM STAIN W[employer] M[employer]ING WHEEL OPERATOR procedu re are in the results section. HGB/HCT (H&H) - STAT LAB STAT 04/14/2019 3:24 PM Results for this W[employer] M[employer]ING WHEEL OPERATOR procedure are i n the results section. GLUCOSE-STAT LAB STAT 04/14/2019 3:24 PM Resu lts for this W[employer] M[employer]ING WHEEL OPERATOR procedure are i n the results section. POTASSIUM-STAT LAB STAT 04/14/2019 3:24 PM Re sults for this W[employer] M[employer]ING WHEEL OPERATOR procedure are i n the results section. SODIUM NA-STAT LAB STAT 04/14/2019 3:24 PM Re sults for this W[employer] MILLING WHEEL OPERATOR procedure are i n the results section. BLOOD GAS, ARTERIAL STAT 04/14/2019 3:24 PM R esults for this W[employer] M[employer]ING WHEEL OPERATOR procedure are i n the results section. CALCIUM, IONIZED STAT 04/14/2019 3:24 PM Resu lts for this W[employer] M[employer]ING WHEEL OPERATOR procedure are i n the results section. RRL CRITICAL LABS STAT 04/14/2019 3:24 PM Res ults for this (ABG,NA,K,H&H,GLUCOSE) WET M[employer]ING WHEEL OPERATOR proce dure are in the results section. BRONCHOSCOPY 04/14/2019 1:25 PM Empyema, right WET MILLING WHEEL OPERATOR (HCC) THORACOSCOPY 04/14/2019 1:25 PM Empyema, right (VATS),DECORTICATION WET MILLING WHEEL OPERATOR (HCC) ECG 12-LEAD Routine 04/14/2019 12:19 PM WET MILLING WHEEL OPERATOR Procedure Note - Interface, External Ris In - 04/14/2019 12:20 PM WET MILLING WHEEL OPERATOR Ventricular Rate 45 BPM Atrial Rate 45 BPM P-R Interval 178 ms QRS Duration 118 ms Q-T Interval 542 ms QTC Calculation(Bazett) 468 ms P [place] 67 degrees R [place] 20 degrees T [place] -1 degrees Sinus bradycardia Left ventricular hypertrophy [...] STAT 04/14/2019 12:19 Results for this PM W[employer] M[employer]ING WHEEL OPERATOR procedure are i n the results section. XR CHEST 1 VIEW Routine 04/14/2019 10:05 Results for this PORTABLE/BEDSIDE AM W[employer] MILLING WHEEL OPERATOR procedure a re in the results section. CBC W/PLT COUNT & AUTO Routine 04/14/2019 1:01 R esults for this DIFFERENTIAL AM W[employer] M[employer]ING WHEEL OPERATOR procedure are i n the results section. TYPE AND SCREEN, Routine 04/14/2019 1:01 Results for this AUTOMATED AM W[employer] M[employer]ING WHEEL OPERATOR procedure are i n the results section. COMPREHENSIVE Add-On 04/14/2019 1:01 Results fo r this METABOLIC PANEL AM W[employer] M[employer]ING WHEEL OPERATOR procedure ar e in the results section. PROTHROMBIN TIME/INR Routine 04/14/2019 1:01 Res ults for this AM W[employer] M[employer]ING WHEEL OPERATOR procedure are i n the results section. BASIC METABOLIC PANEL Routine 04/14/2019 1:01 Re sults for this (7) AM W[employer] M[employer]ING WHEEL OPERATOR procedure are i n the results section. PHOSPHORUS Routine 04/14/2019 1:01 Results for this AM W[employer] M[employer]ING WHEEL OPERATOR procedure are i n the results section. MAGNESIUM Routine 04/14/2019 1:01 Results for this AM W[employer] M[employer]ING WHEEL OPERATOR procedure are i n the results section. CBC W/PLT COUNT & AUTO Routine 04/14/2019 1:01 R esults for this DIFFERENTIAL AM W[employer] M[employer]ING WHEEL OPERATOR procedure are i n the results section. POCT-GLUCOSE METER Routine 04/13/2019 7:57 Resul ts for this PM W[employer] M[employer]ING WHEEL OPERATOR procedure are i n the results section. POCT-GLUCOSE METER Routine 04/13/2019 5:17 Resul ts for this PM W[employer] M[employer]ING WHEEL OPERATOR procedure are i n the results section. POCT-GLUCOSE METER Routine 04/13/2019 11:52 Resul ts for this AM W[employer] M[employer]ING WHEEL OPERATOR procedure are i n the results section. XR CHEST 1 VIEW Routine 04/13/2019 8:26 Results for this PORTABLE/BEDSIDE AM W[employer] MILLING WHEEL OPERATOR procedure a re in the results section. POCT-GLUCOSE METER Routine 04/13/2019 5:58 Resul ts for this AM W[employer] M[employer]ING WHEEL OPERATOR procedure are i n the results section. CBC W/PLT COUNT & AUTO Routine 04/13/2019 4:50 R esults for this DIFFERENTIAL AM W[employer] M[employer]ING WHEEL OPERATOR procedure are i n the results section. CBC W/PLT COUNT & AUTO Routine 04/13/2019 4:50 R esults for this DIFFERENTIAL AM W[employer] M[employer]ING WHEEL OPERATOR procedure are i n the results section. HEPATIC FUNCTION PANEL Routine 04/13/2019 4:39 R esults for this AM W[employer] M[employer]ING WHEEL OPERATOR procedure are i n the results section. BASIC METABOLIC PANEL Routine 04/13/2019 4:39 Re sults for this (7) AM W[employer] M[employer]ING WHEEL OPERATOR procedure are i n the results section. PHOSPHORUS Routine 04/13/2019 4:39 Results for this AM W[employer] M[employer]ING WHEEL OPERATOR procedure are i n the results section. MAGNESIUM Routine 04/13/2019 4:39 Results for this AM W[employer] M[employer]ING WHEEL OPERATOR procedure are i n the results section. APTT Routine 04/13/2019 4:29 Results for this AM W[employer] M[employer]ING WHEEL OPERATOR procedure are i n the results section. POCT-GLUCOSE METER Routine 04/12/2019 5:20 Resul ts for this PM W[employer] M[employer]ING WHEEL OPERATOR procedure are i n the results section. POCT-GLUCOSE METER Routine 04/12/2019 12:05 Resul ts for this PM W[employer] M[employer]ING WHEEL OPERATOR procedure are i n the results section. XR CHEST 1 VIEW Routine 04/12/2019 6:43 Results for this PORTABLE/BEDSIDE AM W[employer] MILLING WHEEL OPERATOR procedure a re in the results section. POCT-GLUCOSE METER Routine 04/12/2019 5:21 Resul ts for this AM W[employer] MILLING WHEEL OPERATOR procedure are i n the results section. CBC W/PLT COUNT & AUTO Routine 04/12/2019 5:17 R esults for this DIFFERENTIAL AM W[employer] MILLING WHEEL OPERATOR procedure are i n the results section. BASIC METABOLIC PANEL Routine 04/12/2019 5:17 Re sults for this (7) AM W[employer] M[employer]ING WHEEL OPERATOR procedure are i n the results section. PHOSPHORUS Routine 04/12/2019 5:17 Results for this AM W[employer] MILLING WHEEL OPERATOR procedure are i n the results section. MAGNESIUM Routine 04/12/2019 5:17 Results for this AM W[employer] MILLING WHEEL OPERATOR procedure are i n the results section. CBC W/PLT COUNT & AUTO Routine 04/12/2019 5:17 R esults for this DIFFERENTIAL AM W[employer] MILLING WHEEL OPERATOR procedure are i n the results section. POCT-GLUCOSE METER Routine 04/12/2019 12:04 Resul ts for this AM W[employer] MILLING WHEEL OPERATOR procedure are i n the results section. POCT-GLUCOSE METER Routine 04/11/2019 5:35 Resul ts for this PM W[employer] MILLING WHEEL OPERATOR procedure are i n the results section. XR CHEST 1 VIEW Routine 04/11/2019 1:04 Results for this PORTABLE/BEDSIDE PM W[employer] MILLING WHEEL OPERATOR procedure a re in the results section. POCT-GLUCOSE METER Routine 04/11/2019 12:09 Resul ts for this PM W[employer] MILLING WHEEL OPERATOR procedure are i n the results section. POCT-GLUCOSE METER Routine 04/11/2019 10:39 Resul ts for this AM W[employer] M[employer]ING WHEEL OPERATOR procedure are i n the results section. REPORT OF PROCEDURE - 04/11/2019 10:15 ENDOSCOPY URL AM WET MILLING WHEEL OPERATOR UPPER ENDOSCOPY,PEG 04/11/2019 9:00 Dysphagia, AM WET MILLING WHEEL OPERATOR unspecified type POCT-GLUCOSE METER Routine 04/11/2019 7:01 Resul ts for this AM W[employer] MILLING WHEEL OPERATOR procedure are i n the results section. CBC W/PLT COUNT & AUTO Routine 04/11/2019 5:28 R esults for this DIFFERENTIAL AM W[employer] MILLING WHEEL OPERATOR procedure are i n the results section. PROTHROMBIN TIME/INR Routine 04/11/2019 5:28 Res ults for this AM W[employer] M[employer]ING WHEEL OPERATOR procedure are i n the results section. BASIC METABOLIC PANEL Routine 04/11/2019 5:28 Re sults for this (7) AM WET M[employer]ING WHEEL OPERATOR procedure are i n the results section. PHOSPHORUS Routine 04/11/2019 5:28 Results for this AM W[employer] MILLING WHEEL OPERATOR procedure are i n the results section. MAGNESIUM Routine 04/11/2019 5:28 Results for this AM W[employer] MILLING WHEEL OPERATOR procedure are i n the results section. CBC W/PLT COUNT & AUTO Routine 04/11/2019 5:28 R esults for this DIFFERENTIAL AM W[employer] MILLING WHEEL OPERATOR procedure are i n the results section. POCT-GLUCOSE METER Routine 04/11/2019 12:16 Resul ts for this AM W[employer] MILLING WHEEL OPERATOR procedure are i n the results section. POCT-GLUCOSE METER Routine 04/10/2019 2:51 Resul ts for this PM W[employer] M[employer]ING WHEEL OPERATOR procedure are i n the results section. XR CHEST 1 VIEW Routine 04/10/2019 9:16 Results for this PORTABLE/BEDSIDE AM WET MILLING WHEEL OPERATOR procedure a re in the results section. CBC W/PLT COUNT & AUTO Routine 04/10/2019 4:41 R esults for this DIFFERENTIAL AM W[employer] MILLING WHEEL OPERATOR procedure are i n the results section. BASIC METABOLIC PANEL Routine 04/10/2019 4:41 Re sults for this (7) AM WET MILLING WHEEL OPERATOR procedure are i n the results section. PHOSPHORUS Routine 04/10/2019 4:41 Results for this AM W[employer] MILLING WHEEL OPERATOR procedure are i n the results section. MAGNESIUM Routine 04/10/2019 4:41 Results for this AM W[employer] MILLING WHEEL OPERATOR procedure are i n the results section. CBC W/PLT COUNT & AUTO Routine 04/10/2019 4:41 R esults for this DIFFERENTIAL AM WET MILLING WHEEL OPERATOR procedure are i n the results section. POCT-GLUCOSE METER Routine 04/10/2019 12:37 Resul ts for this AM W[employer] M[employer]ING WHEEL OPERATOR procedure are i n the results section. POCT-GLUCOSE METER Routine 04/09/2019 5:19 Resul ts for this PM W[employer] M[employer]ING WHEEL OPERATOR procedure are i n the results section. XR ESOPH SWALLOW Routine 04/09/2019 1:56 Results for this FUNCTION W/CINE VIDEO PM WET MILLING WHEEL OPERATOR proced ure are in the results section. BODY FLUID CULTURE + CHRISSIE 04/09/2019 12:10 Res ults for this GRAM STAIN PM W[employer] MILLING WHEEL OPERATOR procedure are i n the results section. POCT-GLUCOSE METER Routine 04/09/2019 11:47 Resul ts for this AM W[employer] M[employer]ING WHEEL OPERATOR procedure are i n the results section. POCT-GLUCOSE METER Routine 04/09/2019 9:21 Resul ts for this AM W[employer] MILLING WHEEL OPERATOR procedure are i n the results section. XR CHEST 1 VIEW Routine 04/09/2019 6:51 Results for this PORTABLE/BEDSIDE AM WET MILLING WHEEL OPERATOR procedure a re in the results section. POCT-GLUCOSE METER Routine 04/09/2019 6:16 Resul ts for this AM W[employer] MILLING WHEEL OPERATOR procedure are i n the results section. CBC W/PLT COUNT & AUTO Routine 04/09/2019 5:32 R esults for this DIFFERENTIAL AM W[employer] MILLING WHEEL OPERATOR procedure are i n the results section. BASIC METABOLIC PANEL Routine 04/09/2019 5:32 Re sults for this (7) AM W[employer] M[employer]ING WHEEL OPERATOR procedure are i n the results section. PHOSPHORUS Routine 04/09/2019 5:32 Results for this AM W[employer] MILLING WHEEL OPERATOR procedure are i n the results section. MAGNESIUM Routine 04/09/2019 5:32 Results for this AM W[employer] MILLING WHEEL OPERATOR procedure are i n the results section. CBC W/PLT COUNT & AUTO Routine 04/09/2019 5:32 R esults for this DIFFERENTIAL AM W[employer] MILLING WHEEL OPERATOR procedure are i n the results section. POCT-GLUCOSE METER Routine 04/09/2019 1:56 Resul ts for this AM W[employer] MILLING WHEEL OPERATOR procedure are i n the results section. POCT-GLUCOSE METER Routine 04/08/2019 5:45 Resul ts for this PM W[employer] MILLING WHEEL OPERATOR procedure are i n the results section. POCT-GLUCOSE METER Routine 04/08/2019 12:36 Resul ts for this PM W[employer] MILLING WHEEL OPERATOR procedure are i n the results section. XR CHEST 1 VIEW Routine 04/08/2019 6:25 Results for this PORTABLE/BEDSIDE AM WET MILLING WHEEL OPERATOR procedure a re in the results section. POCT-GLUCOSE METER Routine 04/08/2019 5:17 Resul ts for this AM W[employer] MILLING WHEEL OPERATOR procedure are i n the results section. CBC W/PLT COUNT & AUTO Routine 04/08/2019 4:12 R esults for this DIFFERENTIAL AM W[employer] MILLING WHEEL OPERATOR procedure are i n the results section. BASIC METABOLIC PANEL Routine 04/08/2019 4:12 Re sults for this (7) AM W[employer] MILLING WHEEL OPERATOR procedure are i n the results section. PHOSPHORUS Routine 04/08/2019 4:12 Results for this AM W[employer] MILLING WHEEL OPERATOR procedure are i n the results section. MAGNESIUM Routine 04/08/2019 4:12 Results for this AM W[employer] MILLING WHEEL OPERATOR procedure are i n the results section. CBC W/PLT COUNT & AUTO Routine 04/08/2019 4:12 R esults for this DIFFERENTIAL AM W[employer] MILLING WHEEL OPERATOR procedure are i n the results section. POCT-GLUCOSE METER Routine 04/08/2019 12:22 Resul ts for this AM W[employer] MILLING WHEEL OPERATOR procedure are i n the results section. BASIC METABOLIC PANEL Routine 04/07/2019 6:08 Re sults for this (7) PM W[employer] MILLING WHEEL OPERATOR procedure are i n the results section. POCT-GLUCOSE METER Routine 04/07/2019 5:36 Resul ts for this PM W[employer] MILLING WHEEL OPERATOR procedure are i n the results section. POCT-GLUCOSE METER Routine 04/07/2019 11:35 Resul ts for this AM W[employer] MILLING WHEEL OPERATOR procedure are i n the results section. XR CHEST 1 VIEW STAT 04/07/2019 11:21 Results for this PORTABLE/BEDSIDE AM WET MILLING WHEEL OPERATOR procedure a re in the results section. XR CHEST 1 VIEW Routine 04/07/2019 9:52 Results for this PORTABLE/BEDSIDE AM WET MILLING WHEEL OPERATOR procedure a re in the results section. POCT-GLUCOSE METER Routine 04/07/2019 6:38 Resul ts for this AM W[employer] MILLING WHEEL OPERATOR procedure are i n the results section. CBC W/PLT COUNT & AUTO Routine 04/07/2019 6:07 R esults for this DIFFERENTIAL AM W[employer] MILLING WHEEL OPERATOR procedure are i n the results section. BASIC METABOLIC PANEL Routine 04/07/2019 6:07 Re sults for this (7) AM W[employer] MILLING WHEEL OPERATOR procedure are i n the results section. PHOSPHORUS Routine 04/07/2019 6:07 Results for this AM W[employer] MILLING WHEEL OPERATOR procedure are i n the results section. MAGNESIUM Routine 04/07/2019 6:07 Results for this AM W[employer] MILLING WHEEL OPERATOR procedure are i n the results section. CBC W/PLT COUNT & AUTO Routine 04/07/2019 6:07 R esults for this DIFFERENTIAL AM W[employer] MILLING WHEEL OPERATOR procedure are i n the results section. POCT-GLUCOSE METER Routine 04/06/2019 11:48 Resul ts for this PM W[employer] MILLING WHEEL OPERATOR procedure are i n the results section. POCT-GLUCOSE METER Routine 04/06/2019 5:17 Resul ts for this PM W[employer] MILLING WHEEL OPERATOR procedure are i n the results section. BASIC METABOLIC PANEL Routine 04/06/2019 4:40 Re sults for this (7) PM WET MILLING WHEEL OPERATOR procedure are i n the results section. POCT-GLUCOSE METER Routine 04/06/2019 12:37 Resul ts for this PM W[employer] MILLING WHEEL OPERATOR procedure are i n the results section. XR CHEST 1 VIEW Routine 04/06/2019 6:49 Results for this PORTABLE/BEDSIDE AM WET MILLING WHEEL OPERATOR procedure a re in the results section. CBC W/PLT COUNT & AUTO Routine 04/06/2019 6:33 R esults for this DIFFERENTIAL AM WET MILLING WHEEL OPERATOR procedure are i n the results section. BASIC METABOLIC PANEL Routine 04/06/2019 6:33 Re sults for this (7) AM WET MILLING WHEEL OPERATOR procedure are i n the results section. PHOSPHORUS Routine 04/06/2019 6:33 Results for this AM W[employer] MILLING WHEEL OPERATOR procedure are i n the results section. MAGNESIUM Routine 04/06/2019 6:33 Results for this AM WET MILLING WHEEL OPERATOR procedure are i n the results section. CBC W/PLT COUNT & AUTO Routine 04/06/2019 6:33 R esults for this DIFFERENTIAL AM WET MILLING WHEEL OPERATOR procedure are i n the results section. POCT-GLUCOSE METER Routine 04/06/2019 5:15 Resul ts for this AM WET MILLING WHEEL OPERATOR procedure are i n the results section. BASIC METABOLIC PANEL Routine 04/05/2019 4:43 Re sults for this (7) PM [employer]ING WHEEL [employer]PERATOR procedure are i n the results section. POCT-GLUCOSE METER Routine 04/05/2019 11:21 Resul ts for this AM [employer] M[employer]ING WHEEL OPERATOR procedure are i n the results section. CBC W/PLT COUNT & AUTO Routine 04/05/2019 4:50 R esults for this DIFFERENTIAL AM [employer]ING WHEEL OPERATOR procedure are i n the results section. BASIC METABOLIC PANEL Routine 04/05/2019 4:50 Re sults for this (7) AM [employer] WHEEL OPERATOR procedure are i n the results section. PHOSPHORUS Routine 04/05/2019 4:50 Results for this AM [employer]ING WHEEL OPERATOR procedure are i n the results section. MAGNESIUM Routine 04/05/2019 4:50 Results for this AM [employer] M[employer]ING WHEEL OPERATOR procedure are i n the results section. CBC W/PLT COUNT & AUTO Routine 04/05/2019 4:50 R esults for this DIFFERENTIAL AM [employer] WHEEL OPERATOR procedure are i n the results section. XR CHEST 1 VIEW Routine 04/05/2019 1:58 Results for this PORTABLE/BEDSIDE AM [employer]ING WHEEL OPERATOR procedure a re in the results section. POCT-GLUCOSE METER Routine 04/04/2019 11:42 Resul ts for this PM [employer]ING WHEEL OPERATOR procedure are i n the results section. POCT-GLUCOSE METER Routine 04/04/2019 5:43 Resul ts for this PM [employer]ING WHEEL OPERATOR procedure are i n the results section. BASIC METABOLIC PANEL Routine 04/04/2019 4:28 Re sults for this (7) PM [employer] WHEEL OPERATOR procedure are i n the results section. XR ABDOMEN / KUB 1 STAT 04/04/2019 3:58 Resul ts for this VIEW PM [employer]ING WHEEL OPERATOR procedure are i n the results section. XR ABDOMEN / KUB 1 STAT 04/04/2019 3:39 Resul ts for this VIEW PM [employer] M[employer]ING WHEEL OPERATOR procedure are i n the results section. POCT-GLUCOSE METER Routine 04/04/2019 12:09 Resul ts for this PM [employer]ING WHEEL OPERATOR procedure are i n the results section. XR CHEST 1 VIEW STAT 04/04/2019 8:30 Results for this PORTABLE/BEDSIDE AM [employer]ING WHEEL OPERATOR procedure a re in the results section. POCT-GLUCOSE METER Routine 04/04/2019 5:29 Resul ts for this AM [employer]ING WHEEL OPERATOR procedure are i n the results section. CBC W/PLT COUNT & AUTO Routine 04/04/2019 4:42 R esults for this DIFFERENTIAL AM [employer] WHEEL OPERATOR procedure are i n the results section. BASIC METABOLIC PANEL Routine 04/04/2019 4:42 Re sults for this (7) AM [employer] M[employer]ING WHEEL OPERATOR procedure are i n the results section. PHOSPHORUS Routine 04/04/2019 4:42 Results for this AM [employer] M[employer]ING WHEEL OPERATOR procedure are i n the results section. MAGNESIUM Routine 04/04/2019 4:42 Results for this AM [employer] M[employer]ING WHEEL OPERATOR procedure are i n the results section. CBC W/PLT COUNT & AUTO Routine 04/04/2019 4:42 R esults for this DIFFERENTIAL AM [employer] WHEEL OPERATOR procedure are i n the results section. POCT-GLUCOSE METER Routine 04/03/2019 11:54 Resul ts for this PM [employer]ING WHEEL OPERATOR procedure are i n the results section. POCT-GLUCOSE METER Routine 04/03/2019 5:02 Resul ts for this PM [employer] WHEEL OPERATOR procedure are i n the results section. MAGNESIUM Add-On 04/03/2019 3:27 Results for this PM [employer] M[employer]ING WHEEL OPERATOR procedure are i n the results section. BASIC METABOLIC PANEL Routine 04/03/2019 3:27 Re sults for this (7) PM [employer] WHEEL OPERATOR procedure are i n the results section. POCT-GLUCOSE METER Routine 04/03/2019 12:07 Resul ts for this PM [employer]ING WHEEL OPERATOR procedure are i n the results section. POCT-GLUCOSE METER Routine 04/03/2019 5:53 Resul ts for this AM [employer]ING WHEEL OPERATOR procedure are i n the results section. XR CHEST 1 VIEW CHRISSIE 04/03/2019 5:14 Results for this PORTABLE/BEDSIDE AM [employer]ING WHEEL OPERATOR procedure a re in the results section. CBC W/PLT COUNT & AUTO Routine 04/03/2019 2:13 R esults for this DIFFERENTIAL AM [employer] WHEEL OPERATOR procedure are i n the results section. BASIC METABOLIC PANEL Routine 04/03/2019 2:13 Re sults for this (7) AM [employer] WHEEL OPERATOR procedure are i n the results section. PHOSPHORUS Routine 04/03/2019 2:13 Results for this AM [employer]ING WHEEL OPERATOR procedure are i n the results section. MAGNESIUM Routine 04/03/2019 2:13 Results for this AM [employer]ING WHEEL OPERATOR procedure are i n the results section. CBC W/PLT COUNT & AUTO Routine 04/03/2019 2:13 R esults for this DIFFERENTIAL AM [employer] WHEEL OPERATOR procedure are i n the results section. POCT-GLUCOSE METER Routine 04/02/2019 11:54 Resul ts for this PM [employer] WHEEL OPERATOR procedure are i n the results section. APTT Routine 04/02/2019 10:44 Results for this PM [employer] WHEEL OPERATOR procedure are i n the results section. POCT-GLUCOSE METER Routine 04/02/2019 5:26 Resul ts for this PM [employer]ING WHEEL OPERATOR procedure are i n the results section. APTT Routine 04/02/2019 4:42 Results for this PM [employer]ING WHEEL OPERATOR procedure are i n the results section. BASIC METABOLIC PANEL Routine 04/02/2019 4:42 Re sults for this (7) PM [employer] WHEEL OPERATOR procedure are i n the results section. POCT-GLUCOSE METER Routine 04/02/2019 12:20 Resul ts for this PM [employer] WHEEL OPERATOR procedure are i n the results section. APTT Routine 04/02/2019 8:12 Results for this AM [employer]ING WHEEL OPERATOR procedure are i n the results section. XR CHEST 1 VIEW Routine 04/02/2019 6:02 Results for this PORTABLE/BEDSIDE AM [employer]ING WHEEL OPERATOR procedure a re in the results section. POCT-GLUCOSE METER Routine 04/02/2019 5:34 Resul ts for this AM [employer] WHEEL OPERATOR procedure are i n the results section. APTT Routine 04/02/2019 1:20 Results for this AM [employer]ING WHEEL OPERATOR procedure are i n the results section. BLOOD GAS, ARTERIAL Routine 04/02/2019 1:19 Resu lts for this AM [employer] WHE[employer] OPERATOR procedure are i n the results section. CBC W/PLT COUNT & AUTO Routine 04/02/2019 1:18 R esults for this DIFFERENTIAL AM [employer] WHEEL OPERATOR procedure are i n the results section. BASIC METABOLIC PANEL Routine 04/02/2019 1:18 Re sults for this (7) AM [employer] WHE[employer] OPERATOR procedure are i n the results section. PHOSPHORUS Routine 04/02/2019 1:18 Results for this AM [employer] WHEEL OPERATOR procedure are i n the results section. MAGNESIUM Routine 04/02/2019 1:18 Results for this AM [employer] WHEEL OPERATOR procedure are i n the results section. CBC W/PLT COUNT & AUTO Routine 04/02/2019 1:18 R esults for this DIFFERENTIAL AM [employer] WHEEL OPERATOR procedure are i n the results section. POCT-GLUCOSE METER Routine 04/01/2019 11:48 Resul ts for this PM [employer] WHEEL OPERATOR procedure are i n the results section. BASIC METABOLIC PANEL Routine 04/01/2019 7:06 Re sults for this (7) PM [employer] WHE[employer] OPERATOR procedure are i n the results section. APTT Routine 04/01/2019 6:47 Results for this PM [employer] WHEEL OPERATOR procedure are i n the results section. POCT-GLUCOSE METER Routine 04/01/2019 5:51 Resul ts for this PM [employer] WHEEL OPERATOR procedure are i n the results section. POCT-GLUCOSE METER Routine 04/01/2019 11:41 Resul ts for this AM [employer] WHEEL OPERATOR procedure are i n the results section. APTT Routine 04/01/2019 11:07 Results for this AM [employer] WHE[employer] OPERATOR procedure are i n the results section. POCT-GLUCOSE METER Routine 04/01/2019 6:26 Resul ts for this AM [employer] WHEEL OPERATOR procedure are i n the results section. XR CHEST 1 VIEW Routine 04/01/2019 5:07 Results for this PORTABLE/BEDSIDE AM [employer]ING WHEEL OPERATOR procedure a re in the results section. BLOOD GAS, ARTERIAL Routine 04/01/2019 3:25 Resu lts for this AM [employer] WHE[employer] OPERATOR procedure are i n the results section. CBC W/PLT COUNT & AUTO Routine 04/01/2019 3:23 R esults for this DIFFERENTIAL AM [employer] WHE[employer] OPERATOR procedure are i n the results section. APTT Routine 04/01/2019 3:23 Results for this AM [employer]ING WHEEL OPERATOR procedure are i n the results section. BASIC METABOLIC PANEL Routine 04/01/2019 3:23 Re sults for this (7) AM [employer] WHE[employer] OPERATOR procedure are i n the results section. PHOSPHORUS Routine 04/01/2019 3:23 Results for this AM [employer] WHE[employer] OPERATOR procedure are i n the results section. MAGNESIUM Routine 04/01/2019 3:23 Results for this AM [employer]ING WHEEL OPERATOR procedure are i n the results section. CBC W/PLT COUNT & AUTO Routine 04/01/2019 3:23 R esults for this DIFFERENTIAL AM [employer] WHEEL OPERATOR procedure are i n the results section. POCT-GLUCOSE METER Routine 03/31/2019 11:51 Resul ts for this PM [employer] WHE[employer] OPERATOR procedure are i n the results section. APTT Routine 03/31/2019 10:13 Results for this PM [employer]ING WHEEL OPERATOR procedure are i n the results section. APTT Routine 03/31/2019 7:52 Results for this PM [employer]ING WHEEL OPERATOR procedure are i n the results section. POCT-GLUCOSE METER Routine 03/31/2019 6:08 Resul ts for this PM [employer] WHE[employer] OPERATOR procedure are i n the results section. APTT Routine 03/31/2019 1:59 Results for this PM [employer]ING WHE[employer] OPERATOR procedure are i n the results section. BASIC METABOLIC PANEL Routine 03/31/2019 1:59 Re sults for this (7) PM [employer] WHE[employer] OPERATOR procedure are i n the results section. LACTIC ACID, VENOUS Routine 03/31/2019 1:59 Resu lts for this PM [employer] WHE[employer] OPERATOR procedure are i n the results section. PHOSPHORUS STAT 03/31/2019 1:59 Results for this PM [employer] WHEEL OPERATOR procedure are i n the results section. MAGNESIUM STAT 03/31/2019 1:59 Results for this PM [employer]ING WHEEL OPERATOR procedure are i n the results section. PT/APTT STAT 03/31/2019 1:59 Results for this PM [employer]ING WHEEL OPERATOR procedure are i n the results section. COMPREHENSIVE STAT 03/31/2019 1:59 Results fo r this METABOLIC PANEL PM [employer] WHEEL OPERATOR procedure ar e in the results section. TROPONIN I STAT 03/31/2019 1:59 Results for this PM [employer]ING WHEEL OPERATOR procedure are i n the results section. POCT-GLUCOSE METER Routine 03/31/2019 11:50 Resul ts for this AM [employer] WHE[employer] OPERATOR procedure are i n the results section. XR ABDOMEN / KUB 1 STAT 03/31/2019 11:33 Resul ts for this VIEW AM [employer] WHE[employer] OPERATOR procedure are i n the results section. TROPONIN I Routine 03/31/2019 9:12 Results for this AM [employer] WHEEL OPERATOR procedure are i n the results section. APTT Routine 03/31/2019 6:42 Results for this AM [employer]ING WHEEL OPERATOR procedure are i n the results section. BLOOD GAS, ARTERIAL Routine 03/31/2019 6:42 Resu lts for this AM [employer] WHE[employer] OPERATOR procedure are i n the results section. POCT-GLUCOSE METER Routine 03/31/2019 5:40 Resul ts for this AM [employer] WHEEL OPERATOR procedure are i n the results section. XR CHEST 1 VIEW Routine 03/31/2019 5:29 Results for this PORTABLE/BEDSIDE AM [employer] WHEEL OPERATOR procedure a re in the results section. APTT Routine 03/31/2019 4:20 Results for this AM [employer] WHEEL OPERATOR procedure are i n the results section. BLOOD GAS, ARTERIAL Routine 03/31/2019 3:52 Resu lts for this AM [employer] WHE[employer] OPERATOR procedure are i n the results section. CBC W/PLT COUNT & AUTO Routine 03/31/2019 3:51 R esults for this DIFFERENTIAL AM [employer] WHE[employer] OPERATOR procedure are i n the results section. BASIC METABOLIC PANEL Routine 03/31/2019 3:51 Re sults for this (7) AM [employer] WHE[employer] OPER[employer] procedure are i n the results section. PHOSPHORUS Routine 03/31/2019 3:51 Results for this AM [employer] WHE[employer] OPERATOR procedure are i n the results section. MAGNESIUM Routine 03/31/2019 3:51 Results for this AM [employer] WHEEL OPERATOR procedure are i n the results section. CBC W/PLT COUNT & AUTO Routine 03/31/2019 3:51 R esults for this DIFFERENTIAL AM [employer] WHE[employer] OPERATOR procedure are i n the results section. LACTIC ACID, VENOUS STAT 03/31/2019 3:51 Resu lts for this AM [employer] WHE[employer] OPERATOR procedure are i n the results section. TROPONIN I Routine 03/31/2019 1:30 Results for this AM [employer] WHE[employer] OPERATOR procedure are i n the results section. LACTIC ACID, VENOUS Routine 03/31/2019 1:30 Resu lts for this AM [employer] WHE[employer] OPERATOR procedure are i n the results section. B-TYPE NATRIURETIC STAT 03/31/2019 1:30 Resul ts for this FACTOR (BNP) AM [employer]ING WHEEL OPERATOR procedure are i n the results section. POCT-GLUCOSE METER Routine 03/31/2019 12:17 Resul ts for this AM [employer] WHE[employer] OPERATOR procedure are i n the results section. CT BRAIN WITHOUT IV Routine 03/30/2019 11:54 Resu lts for this CONTRAST PM [employer] WHE[employer] OPERATOR procedure are i n the results section. CT CHEST PE TEST Routine 03/30/2019 11:54 Results for this DESIGN PM [employer] WHE[employer] OPERATOR procedure are i n the results section. POCT-HEMOGLOBIN Routine 03/30/2019 8:53 Results for this PM [employer] WHE[employer] OPERATOR procedure are i n the results section. POCT-HEMATOCRIT Routine 03/30/2019 8:53 Results for this PM [employer] WHE[employer] OPERATOR procedure are i n the results section. POCT-CALCIUM IONIZED Routine 03/30/2019 8:53 Res ults for this PM [employer] WHE[employer] OPERATOR procedure are i n the results section. POCT-GLUCOSE Routine 03/30/2019 8:53 Results for this PM [employer] WHE[employer] OPERATOR procedure are i n the results section. POCT-POTASSIUM Routine 03/30/2019 8:53 Results f or this PM [employer] WHE[employer] OPERATOR procedure are i n the results section. POCT-SODIUM Routine 03/30/2019 8:53 Results for this PM [employer] WHEEL OPERATOR procedure are i n the results section. POCT-BLOOD GASES, Routine 03/30/2019 8:53 Result s for this ARTERIAL PM [employer] WHE[employer] OPERATOR procedure are i n the results section. CBC W/PLT COUNT & AUTO STAT 03/30/2019 8:44 R esults for this DIFFERENTIAL PM [employer] WHE[employer] OPERATOR procedure are i n the results section. LACTIC ACID, VENOUS Routine 03/30/2019 8:44 Resu lts for this PM [employer] WHE[employer] OPERATOR procedure are i n the results section. PHOSPHORUS STAT 03/30/2019 8:44 Results for this PM [employer]ING WHEEL OPERATOR procedure are i n the results section. MAGNESIUM STAT 03/30/2019 8:44 Results for this PM [employer]ING WHEEL OPERATOR procedure are i n the results section. TROPONIN I STAT 03/30/2019 8:44 Results for this PM [employer]ING WHEEL OPERATOR procedure are i n the results section. COMPREHENSIVE STAT 03/30/2019 8:44 Results fo r this METABOLIC PANEL PM [employer]ING WHEEL OPERATOR procedure ar e in the results section. CBC W/PLT COUNT & AUTO STAT 03/30/2019 8:44 R esults for this DIFFERENTIAL PM [employer]ING WHEEL OPERATOR procedure are i n the results section. XR CHEST 1 VIEW STAT 03/30/2019 8:34 Results for this PORTABLE/BEDSIDE PM [employer]ING WHEEL OPERATOR procedure a re in the results section. APTT Routine 03/30/2019 5:57 Results for this PM [employer] WHEEL OPERATOR procedure are i n the results section. POCT-GLUCOSE METER Routine 03/30/2019 5:54 Resul ts for this PM [employer] WHEEL OPERATOR procedure are i n the results section. BASIC METABOLIC PANEL Routine 03/30/2019 3:46 Re sults for this (7) PM [employer] WHEEL OPERATOR procedure are i n the results section. APTT Routine 03/30/2019 12:08 Results for this PM [employer]ING WHEEL OPERATOR procedure are i n the results section. POCT-GLUCOSE METER Routine 03/30/2019 11:49 Resul ts for this AM [employer]ING WHEEL OPERATOR procedure are i n the results section. XR CHEST 1 VIEW Routine 03/30/2019 7:47 Results for this PORTABLE/BEDSIDE AM [employer]ING WHEEL OPERATOR procedure a re in the results section. APTT Routine 03/30/2019 6:32 Results for this AM [employer] M[employer]ING WHEEL OPERATOR procedure are i n the results section. POCT-GLUCOSE METER Routine 03/30/2019 5:55 Resul ts for this AM [employer] M[employer]ING WHEEL OPERATOR procedure are i n the results section. CBC W/PLT COUNT & AUTO Routine 03/30/2019 4:31 R esults for this DIFFERENTIAL AM [employer]ING WHEEL OPERATOR procedure are i n the results section. APTT Routine 03/30/2019 4:31 Results for this AM W[employer] M[employer]ING WHEEL OPERATOR procedure are i n the results section. BASIC METABOLIC PANEL Routine 03/30/2019 4:31 Re sults for this (7) AM [employer] WHEEL OPERATOR procedure are i n the results section. PHOSPHORUS Routine 03/30/2019 4:31 Results for this AM [employer] M[employer]ING WHEEL OPERATOR procedure are i n the results section. MAGNESIUM Routine 03/30/2019 4:31 Results for this AM W[employer] M[employer]ING WHEEL OPERATOR procedure are i n the results section. CBC W/PLT COUNT & AUTO Routine 03/30/2019 4:31 R esults for this DIFFERENTIAL AM [employer] WHEEL OPERATOR procedure are i n the results section. POCT-GLUCOSE METER Routine 03/30/2019 12:16 Resul ts for this AM [employer]ING WHEEL OPERATOR procedure are i n the results section. POCT-GLUCOSE METER Routine 03/29/2019 6:14 Resul ts for this PM [employer]ING WHEEL OPERATOR procedure are i n the results section. BASIC METABOLIC PANEL Routine 03/29/2019 12:20 Re sults for this (7) PM [employer] WHEEL OPERATOR procedure are i n the results section. POCT-GLUCOSE METER Routine 03/29/2019 12:18 Resul ts for this PM [employer]ING WHEEL OPERATOR procedure are i n the results section. POCT-GLUCOSE METER Routine 03/29/2019 6:00 Resul ts for this AM [employer]ING WHEEL OPERATOR procedure are i n the results section. XR CHEST 1 VIEW Routine 03/29/2019 4:42 Results for this PORTABLE/BEDSIDE AM [employer]ING WHEEL OPERATOR procedure a re in the results section. APTT Routine 03/29/2019 3:33 Results for this AM [employer]ING WHEEL OPERATOR procedure are i n the results section. CBC W/PLT COUNT & AUTO Routine 03/29/2019 3:30 R esults for this DIFFERENTIAL AM [employer]ING WHEEL OPERATOR procedure are i n the results section. BASIC METABOLIC PANEL Routine 03/29/2019 3:30 Re sults for this (7) AM [employer] WHEEL OPERATOR procedure are i n the results section. PHOSPHORUS Routine 03/29/2019 3:30 Results for this AM [employer]ING WHEEL OPERATOR procedure are i n the results section. MAGNESIUM Routine 03/29/2019 3:30 Results for this AM [employer] M[employer]ING WHEEL OPERATOR procedure are i n the results section. CBC W/PLT COUNT & AUTO Routine 03/29/2019 3:30 R esults for this DIFFERENTIAL AM [employer]ING WHEEL OPERATOR procedure are i n the results section. POCT-GLUCOSE METER Routine 03/29/2019 12:23 Resul ts for this AM [employer] WHEEL OPERATOR procedure are i n the results section. APTT Routine 03/28/2019 8:25 Results for this PM [employer]ING WHEEL OPERATOR procedure are i n the results section. VANCOMYCIN LEVEL, Timed 03/28/2019 8:25 Result s for this TROUGH PM [employer] WHEEL OPERATOR procedure are i n the results section. POCT-GLUCOSE METER Routine 03/28/2019 5:33 Resul ts for this PM [employer] WHEEL OPERATOR procedure are i n the results section. BASIC METABOLIC PANEL Routine 03/28/2019 4:03 Re sults for this (7) PM [employer] WHEEL OPERATOR procedure are i n the results section. APTT Routine 03/28/2019 2:03 Results for this PM [employer]ING WHEEL OPERATOR procedure are i n the results section. POCT-GLUCOSE METER Routine 03/28/2019 12:26 Resul ts for this PM [employer] WHEEL OPERATOR procedure are i n the results section. CYTOLOGY AP Routine 03/28/2019 8:03 Results for this AM [employer] WHEEL OPERATOR procedure are i n the results section. APTT Routine 03/28/2019 6:30 Results for this AM [employer]ING WHEEL OPERATOR procedure are i n the results section. CBC W/PLT COUNT & AUTO Routine 03/28/2019 4:21 R esults for this DIFFERENTIAL AM [employer] WHEEL OPERATOR procedure are i n the results section. APTT Routine 03/28/2019 4:21 Results for this AM [employer] WHEEL OPERATOR procedure are i n the results section. BASIC METABOLIC PANEL Routine 03/28/2019 4:21 Re sults for this (7) AM [employer] WHEEL OPERATOR procedure are i n the results section. PHOSPHORUS Routine 03/28/2019 4:21 Results for this AM [employer]ING WHEEL OPERATOR procedure are i n the results section. MAGNESIUM Routine 03/28/2019 4:21 Results for this AM [employer]ING WHEEL OPERATOR procedure are i n the results section. CBC W/PLT COUNT & AUTO Routine 03/28/2019 4:21 R esults for this DIFFERENTIAL AM [employer]ING WHEEL OPERATOR procedure are i n the results section. XR CHEST 1 VIEW Routine 03/28/2019 3:24 Results for this PORTABLE/BEDSIDE AM [employer]ING WHEEL OPERATOR procedure a re in the results section. POCT-GLUCOSE METER Routine 03/28/2019 12:13 Resul ts for this AM [employer] WHEEL OPERATOR procedure are i n the results section. POCT-GLUCOSE METER Routine 03/27/2019 5:40 Resul ts for this PM [employer]ING WHEEL OPERATOR procedure are i n the results section. BASIC METABOLIC PANEL Routine 03/27/2019 4:05 Re sults for this (7) PM [employer]ING WHEEL OPERATOR procedure are i n the results section. APTT Routine 03/27/2019 12:05 Results for this PM [employer] M[employer]ING WHEEL OPERATOR procedure are i n the results section. POCT-GLUCOSE METER Routine 03/27/2019 11:31 Resul ts for this AM [employer]ING WHEEL OPERATOR procedure are i n the results section. APTT Routine 03/27/2019 5:34 Results for this AM [employer] M[employer]ING WHEEL OPERATOR procedure are i n the results section. POCT-GLUCOSE METER Routine 03/27/2019 5:05 Resul ts for this AM [employer]ING WHEEL OPERATOR procedure are i n the results section. CBC W/PLT COUNT & AUTO Routine 03/27/2019 4:32 R esults for this DIFFERENTIAL AM [employer]ING WHEEL OPERATOR procedure are i n the results section. BASIC METABOLIC PANEL Routine 03/27/2019 4:32 Re sults for this (7) AM [employer]ING WHEEL OPERATOR procedure are i n the results section. PHOSPHORUS Routine 03/27/2019 4:32 Results for this AM [employer] M[employer]ING WHEEL OPERATOR procedure are i n the results section. MAGNESIUM Routine 03/27/2019 4:32 Results for this AM [employer] M[employer]ING WHEEL OPERATOR procedure are i n the results section. CBC W/PLT COUNT & AUTO Routine 03/27/2019 4:32 R esults for this DIFFERENTIAL AM [employer]ING WHEEL OPERATOR procedure are i n the results section. XR CHEST 1 VIEW Routine 03/27/2019 3:54 Results for this PORTABLE/BEDSIDE AM [employer] M[employer]ING WHEEL OPERATOR procedure a re in the results section. ECHOCARDIOGRAM REPORT 03/26/2019 9:11 - SCAN PM [employer]ING WHEEL OPERATOR APTT Routine 03/26/2019 8:13 Results for this PM [employer] M[employer]ING WHEEL OPERATOR procedure are i n the results section. IR DRAINAGE CATHETER CHRISSIE 03/26/2019 7:30 Res ults for this CHANGE PM [employer]ING WHEEL OPERATOR procedure are i n the results section. POCT-GLUCOSE METER Routine 03/26/2019 6:20 Resul ts for this PM [employer]ING WHEEL OPERATOR procedure are i n the results section. BASIC METABOLIC PANEL Routine 03/26/2019 5:33 Re sults for this (7) PM [employer]ING WHEEL OPERATOR procedure are i n the results section. APTT Routine 03/26/2019 12:53 Results for this PM [employer] M[employer]ING WHEEL OPERATOR procedure are i n the results section. POCT-GLUCOSE METER Routine 03/26/2019 11:54 Resul ts for this AM [employer]ING WHEEL OPERATOR procedure are i n the results section. APTT Routine 03/26/2019 10:27 Results for this AM [employer] M[employer]ING WHEEL OPERATOR procedure are i n the results section. POCT-GLUCOSE METER Routine 03/26/2019 6:42 Resul ts for this AM W[employer] M[employer]ING WHEEL OPERATOR procedure are i n the results section. XR CHEST 1 VIEW Routine 03/26/2019 3:58 Results for this PORTABLE/BEDSIDE AM W[employer] M[employer]ING WHEEL OPERATOR procedure a re in the results section. BLOOD GAS, ARTERIAL Routine 03/26/2019 3:08 Resu lts for this AM W[employer] M[employer]ING WHEEL OPERATOR procedure are i n the results section. CBC W/PLT COUNT & AUTO Routine 03/26/2019 3:00 R esults for this DIFFERENTIAL AM [employer] WHEEL OPERATOR procedure are i n the results section. APTT Routine 03/26/2019 3:00 Results for this AM W[employer] M[employer]ING WHEEL OPERATOR procedure are i n the results section. BASIC METABOLIC PANEL Routine 03/26/2019 3:00 Re sults for this (7) AM [employer] M[employer]ING WHEEL OPERATOR procedure are i n the results section. PHOSPHORUS Routine 03/26/2019 3:00 Results for this AM [employer] M[employer]ING WHEEL OPERATOR procedure are i n the results section. MAGNESIUM Routine 03/26/2019 3:00 Results for this AM W[employer] M[employer]ING WHEEL OPERATOR procedure are i n the results section. CBC W/PLT COUNT & AUTO Routine 03/26/2019 3:00 R esults for this DIFFERENTIAL AM [employer] M[employer]ING WHEEL OPERATOR procedure are i n the results section. POCT-GLUCOSE METER Routine 03/26/2019 12:02 Resul ts for this AM WET MILLING WHEEL OPERATOR procedure are i n the results section. BASIC METABOLIC PANEL Routine 03/25/2019 8:05 Re sults for this (7) PM WET MILLING WHEEL OPERATOR procedure are i n the results section. 2D ECHO W/ DOPPLER STAT 03/25/2019 7:04 Resul ts for this (CW/PW/COLOR) PM WET MILLING WHEEL OPERATOR procedure are in the results section. POCT-GLUCOSE METER Routine 03/25/2019 6:10 Resul ts for this PM WET MILLING WHEEL OPERATOR procedure are i n the results section. CT ABDOMEN/PELVIS STAT 03/25/2019 6:00 Result s for this WITHOUT IV CONTRAST PM W[employer] MILLING WHEEL OPERATOR procedur e are in the results section. CT CHEST WITHOUT IV STAT 03/25/2019 6:00 Resu lts for this CONTRAST PM W[employer] MILLING WHEEL OPERATOR procedure are i n the results section. XR CHEST 1 VIEW STAT 03/25/2019 4:10 Results for this PORTABLE/BEDSIDE PM WET MILLING WHEEL OPERATOR procedure a re in the results section. APTT Routine 03/25/2019 3:30 Results for this PM W[employer] MILLING WHEEL OPERATOR procedure are i n the results section. BASIC METABOLIC PANEL Routine 03/25/2019 11:46 Re sults for this (7) AM WET MILLING WHEEL OPERATOR procedure are i n the results section. BLOOD GAS, ARTERIAL Routine 03/25/2019 11:43 Resu lts for this AM W[employer] MILLING WHEEL OPERATOR procedure are i n the results section. POCT-GLUCOSE METER Routine 03/25/2019 11:40 Resul ts for this AM W[employer] M[employer]ING WHEEL OPERATOR procedure are i n the results section. APTT Routine 03/25/2019 9:33 Results for this AM W[employer] MILLING WHEEL OPERATOR procedure are i n the results section. BLOOD CULTURE Routine 03/25/2019 9:32 Results fo r this AM W[employer] MILLING WHEEL OPERATOR procedure are i n the results section. BLOOD CULTURE Routine 03/25/2019 9:32 Results fo r this AM W[employer] MILLING WHEEL OPERATOR procedure are i n the results section. URINALYSIS W/ REFLEX Routine 03/25/2019 9:08 Res ults for this URINE CULTURE AM WET MILLING WHEEL OPERATOR procedure are in the results section. URINE CULTURE Routine 03/25/2019 9:08 Results fo r this AM W[employer] MILLING WHEEL OPERATOR procedure are i n the results section. SPUTUM CULTURE + GRAM Routine 03/25/2019 9:08 Re sults for this STAIN AM [employer] MILLING WHEEL OPERATOR procedure are i n the results section. ECG 12-LEAD STAT 03/25/2019 8:09 Results for this AM W[employer] MILLING WHEEL OPERATOR procedure are i n the results section. POCT-GLUCOSE METER Routine 03/25/2019 6:06 Resul ts for this AM W[employer] MILLING WHEEL OPERATOR procedure are i n the results section. XR CHEST 1 VIEW Routine 03/25/2019 4:03 Results for this PORTABLE/BEDSIDE AM W[employer] MILLING WHEEL OPERATOR procedure a re in the results section. BASIC METABOLIC PANEL Routine 03/25/2019 3:30 Re sults for this (7) AM W[employer] MILLING WHEEL OPERATOR procedure are i n the results section. PHOSPHORUS Routine 03/25/2019 3:30 Results for this AM W[employer] MILLING WHEEL OPERATOR procedure are i n the results section. MAGNESIUM Routine 03/25/2019 3:30 Results for this AM W[employer] MILLING WHEEL OPERATOR procedure are i n the results section. CBC W/PLT COUNT & AUTO Routine 03/25/2019 3:09 R esults for this DIFFERENTIAL AM W[employer] M[employer]ING WHEEL OPERATOR procedure are i n the results section. APTT Routine 03/25/2019 3:09 Results for this AM W[employer] M[employer]ING WHEEL OPERATOR procedure are i n the results section. CBC W/PLT COUNT & AUTO Routine 03/25/2019 3:09 R esults for this DIFFERENTIAL AM W[employer] M[employer]ING WHEEL OPERATOR procedure are i n the results section. POCT-GLUCOSE METER Routine 03/25/2019 12:01 Resul ts for this AM W[employer] M[employer]ING WHEEL OPERATOR procedure are i n the results section. APTT Routine 03/24/2019 8:31 Results for this PM W[employer] MILLING WHEEL OPERATOR procedure are i n the results section. BASIC METABOLIC PANEL Routine 03/24/2019 8:31 Re sults for this (7) PM W[employer] MILLING WHEEL OPERATOR procedure are i n the results section. POCT-GLUCOSE METER Routine 03/24/2019 6:07 Resul ts for this PM W[employer] MILLING WHEEL OPERATOR procedure are i n the results section. XR ABDOMEN / KUB 1 STAT 03/24/2019 5:12 Resul ts for this VIEW PM W[employer] MILLING WHEEL OPERATOR procedure are i n the results section. XR CHEST 1 VIEW STAT 03/24/2019 5:12 Results for this PORTABLE/BEDSIDE PM WET MILLING WHEEL OPERATOR procedure a re in the results section. APTT Routine 03/24/2019 12:36 Results for this PM W[employer] MILLING WHEEL OPERATOR procedure are i n the results section. BASIC METABOLIC PANEL Routine 03/24/2019 12:36 Re sults for this (7) PM W[employer] MILLING WHEEL OPERATOR procedure are i n the results section. POCT-GLUCOSE METER Routine 03/24/2019 12:17 Resul ts for this PM W[employer] MILLING WHEEL OPERATOR procedure are i n the results section. BLOOD GAS, ARTERIAL Routine 03/24/2019 12:04 Resu lts for this PM W[employer] MILLING WHEEL OPERATOR procedure are i n the results section. EEG EXTENDED STAT 03/24/2019 11:23 Results for this MONITORING 40 - 60 AM WET MILLING WHEEL OPERATOR procedure are in MINUTES the results section. POCT-GLUCOSE METER Routine 03/24/2019 5:58 Resul ts for this AM W[employer] MILLING WHEEL OPERATOR procedure are i n the results section. BLOOD GAS, ARTERIAL STAT 03/24/2019 4:29 Resu lts for this AM W[employer] MILLING WHEEL OPERATOR procedure are i n the results section. APTT Routine 03/24/2019 4:25 Results for this AM W[employer] MILLING WHEEL OPERATOR procedure are i n the results section. CBC W/PLT COUNT & AUTO Routine 03/24/2019 4:10 R esults for this DIFFERENTIAL AM W[employer] MILLING WHEEL OPERATOR procedure are i n the results section. BASIC METABOLIC PANEL Routine 03/24/2019 4:10 Re sults for this (7) AM W[employer] M[employer]ING WHEEL OPERATOR procedure are i n the results section. PHOSPHORUS Routine 03/24/2019 4:10 Results for this AM W[employer] MILLING WHEEL OPERATOR procedure are i n the results section. MAGNESIUM Routine 03/24/2019 4:10 Results for this AM W[employer] MILLING WHEEL OPERATOR procedure are i n the results section. CBC W/PLT COUNT & AUTO Routine 03/24/2019 4:10 R esults for this DIFFERENTIAL AM W[employer] MILLING WHEEL OPERATOR procedure are i n the results section. XR CHEST 1 VIEW Routine 03/24/2019 3:00 Results for this PORTABLE/BEDSIDE AM WET MILLING WHEEL OPERATOR procedure a re in the results section. CT BRAIN WITHOUT IV Routine 03/24/2019 1:12 Resu lts for this CONTRAST AM W[employer] M[employer]ING WHEEL OPERATOR procedure are i n the results section. POCT-GLUCOSE METER Routine 03/24/2019 12:05 Resul ts for this AM W[employer] MILLING WHEEL OPERATOR procedure are i n the results section. VANCOMYCIN LEVEL, Timed 03/23/2019 11:59 Result s for this TROUGH PM W[employer] MILLING WHEEL OPERATOR procedure are i n the results section. BASIC METABOLIC PANEL Routine 03/23/2019 7:44 Re sults for this (7) PM W[employer] M[employer]ING WHEEL OPERATOR procedure are i n the results section. AMMONIA STAT 03/23/2019 3:55 Results for this PM W[employer] MILLING WHEEL OPERATOR procedure are i n the results section. HEPATIC FUNCTION PANEL Routine 03/23/2019 3:55 R esults for this PM W[employer] MILLING WHEEL OPERATOR procedure are i n the results section. BASIC METABOLIC PANEL Routine 03/23/2019 3:55 Re sults for this (7) PM W[employer] MILLING WHEEL OPERATOR procedure are i n the results section. (CELLAVISION MANUAL Routine 03/23/2019 5:58 Resu lts for this DIFF) AM W[employer] MILLING WHEEL OPERATOR procedure are i n the results section. CBC W/PLT COUNT & AUTO Routine 03/23/2019 5:58 R esults for this DIFFERENTIAL AM W[employer] M[employer]ING WHEEL OPERATOR procedure are i n the results section. BLOOD GAS, ARTERIAL Routine 03/23/2019 5:58 Resu lts for this AM W[employer] M[employer]ING WHEEL OPERATOR procedure are i n the results section. APTT Routine 03/23/2019 5:58 Results for this AM W[employer] MILLING WHEEL OPERATOR procedure are i n the results section. BASIC METABOLIC PANEL Routine 03/23/2019 5:58 Re sults for this (7) AM W[employer] M[employer]ING WHEEL OPERATOR procedure are i n the results section. PHOSPHORUS Routine 03/23/2019 5:58 Results for this AM W[employer] MILLING WHEEL OPERATOR procedure are i n the results section. MAGNESIUM Routine 03/23/2019 5:58 Results for this AM W[employer] MILLING WHEEL OPERATOR procedure are i n the results section. CBC W/PLT COUNT & AUTO Routine 03/23/2019 5:58 R esults for this DIFFERENTIAL AM W[employer] MILLING WHEEL OPERATOR procedure are i n the results section. POCT-GLUCOSE METER Routine 03/23/2019 5:24 Resul ts for this AM W[employer] MILLING WHEEL OPERATOR procedure are i n the results section. POCT-GLUCOSE METER Routine 03/23/2019 12:09 Resul ts for this AM W[employer] M[employer]ING WHEEL OPERATOR procedure are i n the results section. APTT Routine 03/22/2019 11:35 Results for this PM W[employer] MILLING WHEEL OPERATOR procedure are i n the results section. BASIC METABOLIC PANEL Routine 03/22/2019 8:05 Re sults for this (7) PM W[employer] M[employer]ING WHEEL OPERATOR procedure are i n the results section. PT/APTT Routine 03/22/2019 5:15 Results for this PM W[employer] MILLING WHEEL OPERATOR procedure are i n the results section. SPIN/CONCENTRATION Routine 03/22/2019 2:37 Resul ts for this CHARGE PM W[employer] MILLING WHEEL OPERATOR procedure are i n the results section. FUNGUS CULTURE + Routine 03/22/2019 2:37 Results for this SMEAR PM [employer] M[employer]ING WHEEL OPERATOR procedure are i n the results section. BODY FLUID CELL COUNT Routine 03/22/2019 2:37 Re sults for this WITH DIFFERENTIAL PM W[employer] MILLING WHEEL OPERATOR procedure are in the results section. AFB CULTURE + SMEAR Routine 03/22/2019 2:37 Resu lts for this (NON-SPUTUM) PM WET MILLING WHEEL OPERATOR procedure are i n the results section. TRIGLYCERIDES, PLEURAL Routine 03/22/2019 2:36 R esults for this FLUID PM WET MILLING WHEEL OPERATOR procedure are i n the results section. PROTEIN, TOTAL, Routine 03/22/2019 2:36 Results for this PLEURAL FLUID PM WET MILLING WHEEL OPERATOR procedure are in the results section. PH, BODY FLUID Routine 03/22/2019 2:36 Results f or this PM W[employer] MILLING WHEEL OPERATOR procedure are i n the results section. LACTATE DEHYDROGENASE Routine 03/22/2019 2:36 Re sults for this (LD), PLEURAL FLUID PM WET MILLING WHEEL OPERATOR procedur e are in the results section. GLUCOSE PLEURAL FLUID Routine 03/22/2019 2:36 Re sults for this PM WET MILLING WHEEL OPERATOR procedure are i n the results section. BODY FLUID CULTURE + Routine 03/22/2019 2:36 Res ults for this GRAM STAIN PM W[employer] MILLING WHEEL OPERATOR procedure are i n the results section. ADENOSINE DEAMINASE, Routine 03/22/2019 2:36 Res ults for this FLUID PM WET MILLING WHEEL OPERATOR procedure are i n the results section. TRIGLYCERIDES, PLEURAL Routine 03/22/2019 2:35 R esults for this FLUID PM WET MILLING WHEEL OPERATOR procedure are i n the results section. PH, BODY FLUID Routine 03/22/2019 2:35 Results f or this PM W[employer] MILLING WHEEL OPERATOR procedure are i n the results section. PROTEIN, TOTAL, Routine 03/22/2019 2:35 Results for this PLEURAL FLUID PM WET MILLING WHEEL OPERATOR procedure are in the results section. LACTATE DEHYDROGENASE Routine 03/22/2019 2:35 Re sults for this (LD), PLEURAL FLUID PM WET MILLING WHEEL OPERATOR procedur e are in the results section. GLUCOSE PLEURAL FLUID Routine 03/22/2019 2:35 Re sults for this PM W[employer] MILLING WHEEL OPERATOR procedure are i n the results section. FUNGUS CULTURE + Routine 03/22/2019 2:35 Results for this SMEAR PM W[employer] MILLING WHEEL OPERATOR procedure are i n the results section. BODY FLUID CULTURE + Routine 03/22/2019 2:35 Res ults for this GRAM STAIN PM W[employer] MILLING WHEEL OPERATOR procedure are i n the results section. BODY FLUID CELL COUNT Routine 03/22/2019 2:35 Re sults for this WITH DIFFERENTIAL PM W[employer] MILLING WHEEL OPERATOR procedure are in the results section. ALBUMIN PLEURAL FLUID Routine 03/22/2019 2:35 Re sults for this PM W[employer] MILLING WHEEL OPERATOR procedure are i n the results section. AFB CULTURE + SMEAR Routine 03/22/2019 2:35 Resu lts for this (NON-SPUTUM) PM W[employer] MILLING WHEEL OPERATOR procedure are i n the results section. ADENOSINE DEAMINASE, Routine 03/22/2019 2:35 Res ults for this FLUID PM W[employer] MILLING WHEEL OPERATOR procedure are i n the results section. SPIN/CONCENTRATION Routine 03/22/2019 2:32 Resul ts for this CHARGE PM W[employer] MILLING WHEEL OPERATOR procedure are i n the results section. SPIN/CONCENTRATION Routine 03/22/2019 2:32 Resul ts for this CHARGE PM W[employer] MILLING WHEEL OPERATOR procedure are i n the results section. AFB CULTURE + SMEAR CHRISSIE 03/22/2019 2:32 Resu lts for this (NON-SPUTUM) PM W[employer] MILLING WHEEL OPERATOR procedure are i n the results section. LEGIONELLA CULTURE Routine 03/22/2019 2:32 Resul ts for this PM W[employer] MILLING WHEEL OPERATOR procedure are i n the results section. FUNGUS CULTURE + CHRISSIE 03/22/2019 2:32 Results for this SMEAR PM W[employer] M[employer]ING WHEEL OPERATOR procedure are i n the results section. BRONCHIAL CULTURE + CHRISSIE 03/22/2019 2:32 Resu lts for this GRAM STAIN PM WET MILLING WHEEL OPERATOR procedure are i n the results section. FUNGUS CULTURE + Routine 03/22/2019 2:32 Results for this SMEAR PM W[employer] M[employer]ING WHEEL OPERATOR procedure are i n the results section. AFB CULTURE + SMEAR Routine 03/22/2019 2:32 Resu lts for this (NON-SPUTUM) PM W[employer] MILLING WHEEL OPERATOR procedure are i n the results section. BRONCHIAL CULTURE + Routine 03/22/2019 2:32 Resu lts for this GRAM STAIN PM W[employer] MILLING WHEEL OPERATOR procedure are i n the results section. APTT Routine 03/22/2019 9:35 Results for this AM W[employer] M[employer]ING WHEEL OPERATOR procedure are i n the results section. BASIC METABOLIC PANEL Routine 03/22/2019 9:35 Re sults for this (7) AM W[employer] M[employer]ING WHEEL OPERATOR procedure are i n the results section. BLOOD CULTURE Routine 03/22/2019 9:35 Results fo r this AM W[employer] M[employer]ING WHEEL OPERATOR procedure are i n the results section. BLOOD CULTURE Routine 03/22/2019 9:35 Results fo r this AM W[employer] M[employer]ING WHEEL OPERATOR procedure are i n the results section. XR CHEST 1 VIEW Routine 03/22/2019 8:09 Results for this PORTABLE/BEDSIDE AM W[employer] MILLING WHEEL OPERATOR procedure a re in the results section. POCT-GLUCOSE METER Routine 03/22/2019 5:53 Resul ts for this AM W[employer] MILLING WHEEL OPERATOR procedure are i n the results section. CBC W/PLT COUNT & AUTO Routine 03/22/2019 1:58 R esults for this DIFFERENTIAL AM W[employer] M[employer]ING WHEEL OPERATOR procedure are i n the results section. BASIC METABOLIC PANEL Routine 03/22/2019 1:58 Re sults for this (7) AM W[employer] M[employer]ING WHEEL OPERATOR procedure are i n the results section. PHOSPHORUS Routine 03/22/2019 1:58 Results for this AM W[employer] MILLING WHEEL OPERATOR procedure are i n the results section. CBC W/PLT COUNT & AUTO Routine 03/22/2019 1:58 R esults for this DIFFERENTIAL AM W[employer] M[employer]ING WHEEL OPERATOR procedure are i n the results section. MAGNESIUM STAT 03/22/2019 1:58 Results for this AM WET MILLING WHEEL OPERATOR procedure are i n the results section. VANCOMYCIN LEVEL, Routine 03/22/2019 1:58 Result s for this TROUGH AM W[employer] M[employer]ING WHEEL OPERATOR procedure are i n the results section. POCT-GLUCOSE METER Routine 03/22/2019 12:30 Resul ts for this AM W[employer] MILLING WHEEL OPERATOR procedure are i n the results section. BASIC METABOLIC PANEL Routine 03/21/2019 9:52 Re sults for this (7) PM W[employer] MILLING WHEEL OPERATOR procedure are i n the results section. TRANSFUSION SERVICE 03/21/2019 9:06 REPORT - SCAN PM WET MILLING WHEEL OPERATOR BODY FLUID CULTURE + Routine 03/21/2019 7:34 Res ults for this GRAM STAIN PM W[employer] MILLING WHEEL OPERATOR procedure are i n the results section. TRIGLYCERIDES, PLEURAL Routine 03/21/2019 7:10 R esults for this FLUID PM W[employer] MILLING WHEEL OPERATOR procedure are i n the results section. PROTEIN, TOTAL, Routine 03/21/2019 7:10 Results for this PLEURAL FLUID PM WET MILLING WHEEL OPERATOR procedure are in the results section. PH, BODY FLUID Routine 03/21/2019 7:10 Results f or this PM W[employer] MILLING WHEEL OPERATOR procedure are i n the results section. FUNGUS CULTURE + Routine 03/21/2019 7:10 Results for this SMEAR PM W[employer] M[employer]ING WHEEL OPERATOR procedure are i n the results section. BODY FLUID CELL COUNT Routine 03/21/2019 7:10 Re sults for this WITH DIFFERENTIAL PM W[employer] MILLING WHEEL OPERATOR procedure are in the results section. LACTATE DEHYDROGENASE Routine 03/21/2019 7:09 Re sults for this (LD), PLEURAL FLUID PM WET MILLING WHEEL OPERATOR procedur e are in the results section. GLUCOSE PLEURAL FLUID Routine 03/21/2019 7:09 Re sults for this PM W[employer] MILLING WHEEL OPERATOR procedure are i n the results section. ALBUMIN PLEURAL FLUID Routine 03/21/2019 7:09 Re sults for this PM W[employer] MILLING WHEEL OPERATOR procedure are i n the results section. US DRAINAGE CHEST WITH STAT 03/21/2019 6:25 R esults for this TUBE INSERTION PM W[employer] MILLING WHEEL OPERATOR procedure are in the results section. RETICULOCYTE COUNT Routine 03/21/2019 8:50 Resul ts for this AM W[employer] MILLING WHEEL OPERATOR procedure are i n the results section. RESPIRATORY PANEL [facility] Routine 03/21/2019 8:50 R esults for this AM W[employer] MILLING WHEEL OPERATOR procedure are i n the results section. RAPID INFLUENZA A&B STAT 03/21/2019 8:50 Resu lts for this SCREEN AM W[employer] M[employer]ING WHEEL OPERATOR procedure are i n the results section. MRSA SCREEN STAT 03/21/2019 8:50 Results for this AM W[employer] MILLING WHEEL OPERATOR procedure are i n the results section. MAGNESIUM Add-On 03/21/2019 8:49 Results for this AM W[employer] MILLING WHEEL OPERATOR procedure are i n the results section. BASIC METABOLIC PANEL Routine 03/21/2019 8:49 Re sults for this (7) AM W[employer] M[employer]ING WHEEL OPERATOR procedure are i n the results section. VITAMIN B12 AND FOLATE Routine 03/21/2019 8:49 R esults for this AM W[employer] MILLING WHEEL OPERATOR procedure are i n the results section. LACTATE DEHYDROGENASE Routine 03/21/2019 8:49 Re sults for this (LDH) AM WET MILLING WHEEL OPERATOR procedure are i n the results section. IRON, TIBC, % SAT. Routine 03/21/2019 8:49 Resul ts for this (WITHOUT FERRITIN) AM WET MILLING WHEEL OPERATOR procedure are in the results section. FERRITIN Routine 03/21/2019 8:49 Results for this AM WET MILLING WHEEL OPERATOR procedure are i n the results section. POCT-GLUCOSE METER Routine 03/21/2019 5:34 Resul ts for this AM W[employer] MILLING WHEEL OPERATOR procedure are i n the results section. US ABDOMEN LIMITED Routine 03/21/2019 3:55 Resul ts for this AM W[employer] MILLING WHEEL OPERATOR procedure are i n the results section. (CELLAVISION MANUAL Routine 03/21/2019 2:03 Resu lts for this DIFF) AM W[employer] MILLING WHEEL OPERATOR procedure are i n the results section. CBC W/PLT COUNT & AUTO Routine 03/21/2019 2:03 R esults for this DIFFERENTIAL AM W[employer] M[employer]ING WHEEL OPERATOR procedure are i n the results section. PHOSPHORUS Routine 03/21/2019 2:03 Results for this AM W[employer] MILLING WHEEL OPERATOR procedure are i n the results section. MAGNESIUM Routine 03/21/2019 2:03 Results for this AM WET MILLING WHEEL OPERATOR procedure are i n the results section. CBC W/PLT COUNT & AUTO Routine 03/21/2019 2:03 R esults for this DIFFERENTIAL AM W[employer] M[employer]ING WHEEL OPERATOR procedure are i n the results section. MAGNESIUM STAT Add-on 03/21/2019 12:18 Results for this AM W[employer] MILLING WHEEL OPERATOR procedure are i n the results section. BASIC METABOLIC PANEL Routine 03/21/2019 12:18 Re sults for this (7) AM W[employer] M[employer]ING WHEEL OPERATOR procedure are i n the results section. POCT-GLUCOSE METER Routine 03/20/2019 11:46 Resul ts for this PM W[employer] MILLING WHEEL OPERATOR procedure are i n the results section. ECHOCARDIOGRAM REPORT 03/20/2019 9:22 - SCAN PM W[employer] MILLING WHEEL OPERATOR POCT-GLUCOSE METER Routine 03/20/2019 6:11 Resul ts for this PM W[employer] M[employer]ING WHEEL OPERATOR procedure are i n the results section. BLOOD GAS, ARTERIAL STAT 03/20/2019 4:34 Resu lts for this PM W[employer] MILLING WHEEL OPERATOR procedure are i n the results section. MAGNESIUM STAT Add-on 03/20/2019 4:33 Results for this PM W[employer] MILLING WHEEL OPERATOR procedure are i n the results section. BASIC METABOLIC PANEL Routine 03/20/2019 4:33 Re sults for this (7) PM W[employer] MILLING WHEEL OPERATOR procedure are i n the results section. VANCOMYCIN LEVEL, STAT 03/20/2019 12:58 Result s for this TROUGH PM W[employer] M[employer]ING WHEEL OPERATOR procedure are i n the results section. ECG 12-LEAD Routine 03/20/2019 12:42 PM WET MILLING WHEEL OPERATOR Procedure Note - Interface, External Ris In - 03/20/2019 1:04 PM WET MILLING WHEEL OPERATOR Ventricular Rate 95 BPM Atrial Rate 326 BPM QRS Duration 106 ms Q-T Interval 362 ms QTC Calculation(Bazett) 454 ms R [place] 15 degrees T [place] 134 degrees Atrial fibrillation Minimal voltage criteria for LVH, may be normal variant Nonspecific ST and T wave ab normality , probably digitalis effect Abnormal ECG When compared with ECG of 00:28, T wave inversion no longer e vident in Anterior leads ECG 12-LEAD Routine 03/20/2019 12:42 PM WET MILLING WHEEL OPERATOR Resu lts for this procedure are i n the results section . POCT-GLUCOSE METER Routine 03/20/2019 12:14 PM WET MILLING WHEEL OPERATOR Results for this procedure are i n the results section . 2D ECHO W/ DOPPLER STAT 03/20/2019 11:05 AM WET MILLING WHEEL OPERATOR Results for this (CW/PW/COLOR) procedure are in the results section . CT CHEST WITHOUT IV STAT 03/20/2019 10:45 AM WET MILLING WHEEL OPERATOR Results for this CONTRAST procedure are i n the results section . SPUTUM CULTURE + GRAM STAIN Routine 03/20/2019 6:31 AM WET MILLING WHEEL OPERATOR Results for this procedure are i n the results section . TROPONIN I Routine 03/20/2019 5:49 AM WET MILLING WHEEL OPERATOR Resu lts for this procedure are i n the results section . ABORH, MANUAL STAT 03/20/2019 5:48 AM WET MILLING WHEEL OPERATOR Res ults for this procedure are i n the results section . POCT-GLUCOSE METER Routine 03/20/2019 5:44 AM WET MILLING WHEEL OPERATOR Results for this procedure are i n the results section . XR CHEST 1 VIEW STAT 03/20/2019 4:05 AM WET MILLING WHEEL OPERATOR R esults for this PORTABLE/BEDSIDE procedure a re in the results section . BLOOD GAS, ARTERIAL STAT 03/20/2019 3:14 AM WET MILLING WHEEL OPERATOR Results for this procedure are i n the results section . BLOOD CULTURE Routine 03/20/2019 3:08 AM WET MILLING WHEEL OPERATOR Res ults for this procedure are i n the results section . BLOOD CULTURE Routine 03/20/2019 3:08 AM WET MILLING WHEEL OPERATOR Res ults for this procedure are i n the results section . TYPE AND SCREEN, AUTOMATED STAT 03/20/2019 3:00 AM WET MILLING WHEEL OPERATOR Results for this procedure are i n the results section . FIBRINOGEN STAT 03/20/2019 3:00 AM WET MILLING WHEEL OPERATOR Resu lts for this procedure are i n the results section . LACTIC ACID, VENOUS STAT 03/20/2019 3:00 AM WET MILLING WHEEL OPERATOR Results for this procedure are i n the results section . PT/APTT Routine 03/20/2019 3:00 AM WET MILLING WHEEL OPERATOR Resu lts for this procedure are i n the results section . PROTHROMBIN TIME/INR Routine 03/20/2019 3:00 AM WET MILLING WHEEL OPERATOR Results for this procedure are i n the results section . TSH/FREE T4 IF INDICATED Routine 03/20/2019 3:00 AM WET MILLING WHEEL OPERATOR Results for this procedure are i n the results section . HEMOGLOBIN A1C Routine 03/20/2019 3:00 AM WET MILLING WHEEL OPERATOR Re sults for this procedure are i n the results section . B-TYPE NATRIURETIC FACTOR STAT 03/20/2019 3:00 AM WET MILLING WHEEL OPERATOR Results for this (BNP) procedure are i n the results section . VANCOMYCIN LEVEL, RANDOM Routine 03/20/2019 3:00 AM WET MILLING WHEEL OPERATOR Results for this procedure are i n the results section . CBC W/PLT COUNT & AUTO Routine 03/20/2019 2:59 AM WET MILLING WHEEL OPERATOR Results for this DIFFERENTIAL procedure are i n the results section . CBC W/PLT COUNT & AUTO Routine 03/20/2019 2:59 AM WET MILLING WHEEL OPERATOR Results for this DIFFERENTIAL procedure are i n the results section . LIPID PANEL Routine 03/20/2019 2:59 AM WET MILLING WHEEL OPERATOR Resu lts for this procedure are i n the results section . TROPONIN I Routine 03/20/2019 2:59 AM WET MILLING WHEEL OPERATOR Resu lts for this procedure are i n the results section . PHOSPHORUS STAT 03/20/2019 2:59 AM WET MILLING WHEEL OPERATOR Resu lts for this procedure are i n the results section . MAGNESIUM STAT 03/20/2019 2:59 AM WET MILLING WHEEL OPERATOR Resu lts for this procedure are i n the results section . HEPATIC FUNCTION PANEL STAT 03/20/2019 2:59 AM WET MILLING WHEEL OPERATOR Results for this procedure are i n the results section . BASIC METABOLIC PANEL (7) STAT 03/20/2019 2:59 AM WET MILLING WHEEL OPERATOR Results for this procedure are i n the results section . LEGIONELLA URINE ANTIGEN Routine 03/20/2019 2:23 AM WET MILLING WHEEL OPERATOR Results for this procedure are i n the results section . STREP PNEUMONIAE ANTIGEN Routine 03/20/2019 2:23 AM WET MILLING WHEEL OPERATOR Results for this procedure are i n the results section . URINALYSIS W/ REFLEX URINE Routine 03/20/2019 2:22 AM WET MILLING WHEEL OPERATOR Results for this CULTURE procedure are i n the results section . OSMOLALITY, URINE Routine 03/20/2019 2:22 AM WET MILLING WHEEL OPERATOR Results for this procedure are i n the results section . PROTEIN, RANDOM URINE Routine 03/20/2019 2:22 AM WET MILLING WHEEL OPERATOR Results for this procedure are i n the results section . UREA NITROGEN, RANDOM URINE Routine 03/20/2019 2:22 AM WET MILLING WHEEL OPERATOR Results for this procedure are i n the results section . CREATININE, RANDOM URINE Routine 03/20/2019 2:22 AM WET MILLING WHEEL OPERATOR Results for this procedure are i n the results section . CHLORIDE, RANDOM URINE Routine 03/20/2019 2:22 AM WET MILLING WHEEL OPERATOR Results for this procedure are i n the results section . SODIUM, RANDOM URINE Routine 03/20/2019 2:22 AM WET MILLING WHEEL OPERATOR Results for this procedure are i n the results section . URINE CULTURE Routine 03/20/2019 2:22 AM WET MILLING WHEEL OPERATOR Res ults for this procedure are i n the results section . POCT-GLUCOSE METER Routine 03/20/2019 12:39 AM WET MILLING WHEEL OPERATOR Results for this procedure are i n the results section . ECG 12-LEAD Routine 03/20/2019 12:28 AM WET MILLING WHEEL OPERATOR Procedure Note - Interface, External Ris In - 03/20/2019 1:55 AM WET MILLING WHEEL OPERATOR Ventricular Rate 125 BPM Atrial Rate 129 BPM QRS Duration 106 ms Q-T Interval 356 ms QTC Calculation(Bazett) 513 ms R [place] 15 degrees T [place] 168 degrees Atrial fibrillation with rap id ventricular response with premature ventricular or aberrantly conducted complexes ST & T wave abnormality, con shelter director anterolateral ischemia or digitalis effect Abnormal ECG When compared with ECG of 09:00, ST now depressed in Anterior leads Nonspecific T wave abnormali ty has replaced inverted T waves in Inferior leads T wave inversion now evident in Anterior leads ECG 12-LEAD Routine 03/20/2019 12:28 AM WET MILLING WHEEL OPERATOR Resu lts for this procedure are i n the results section . REPORT OF PROCEDURE - 01/28/2019 1:40 PM WET MILLING WHEEL OPERATOR ENDOSCOPY SCAN RHYTHM STRIP - SCAN 01/28/2019 1:40 PM WET MILLING WHEEL OPERATOR CBC W/PLT COUNT & AUTO Routine 01/24/2019 4:31 AM WET MILLING WHEEL OPERATOR Results for this DIFFERENTIAL procedure are i n the results section . PHOSPHORUS STAT Add-on 01/24/2019 4:31 AM WET MILLING WHEEL OPERATOR Resu lts for this procedure are i n the results section . MAGNESIUM STAT Add-on 01/24/2019 4:31 AM WET MILLING WHEEL OPERATOR Resu lts for this procedure are i n the results section . BASIC METABOLIC PANEL (7) Routine 01/24/2019 4:31 AM WET MILLING WHEEL OPERATOR Results for this procedure are i n the results section . CBC W/PLT COUNT & AUTO Routine 01/24/2019 4:31 AM WET MILLING WHEEL OPERATOR Results for this DIFFERENTIAL procedure are i n the results section . TROPONIN I STAT 01/23/2019 9:59 PM WET MILLING WHEEL OPERATOR Resu lts for this procedure are i n the results section . ECHOCARDIOGRAM REPORT - 01/23/2019 9:21 PM WET MILLING WHEEL OPERATOR SCAN TROPONIN I STAT 01/23/2019 4:02 PM WET MILLING WHEEL OPERATOR Resu lts for this procedure are i n the results section . B-TYPE NATRIURETIC FACTOR STAT 01/23/2019 10:13 AM WET MILLING WHEEL OPERATOR Results for this (BNP) procedure are i n the results section . TROPONIN I STAT 01/23/2019 10:13 AM WET MILLING WHEEL OPERATOR Resu lts for this procedure are i n the results section . TSH/FREE T4 IF INDICATED CHRISSIE 01/23/2019 10:13 AM WET MILLING WHEEL OPERATOR Results for this procedure are i n the results section . ECG 12-LEAD STAT 01/23/2019 9:00 AM WET MILLING WHEEL OPERATOR Resu lts for this procedure are i n the results section . MRA HEAD WITHOUT IV STAT 01/23/2019 8:01 AM WET MILLING WHEEL OPERATOR Results for this CONTRAST procedure are i n the results section . CBC W/PLT COUNT & AUTO Routine 01/23/2019 4:59 AM WET MILLING WHEEL OPERATOR Results for this DIFFERENTIAL procedure are i n the results section . MAGNESIUM STAT Add-on 01/23/2019 4:59 AM WET MILLING WHEEL OPERATOR Resu lts for this procedure are i n the results section . BASIC METABOLIC PANEL (7) Routine 01/23/2019 4:59 AM WET MILLING WHEEL OPERATOR Results for this procedure are i n the results section . CBC W/PLT COUNT & AUTO Routine 01/23/2019 4:59 AM WET MILLING WHEEL OPERATOR Results for this DIFFERENTIAL procedure are i n the results section . POTASSIUM Routine 01/22/2019 7:43 PM WET MILLING WHEEL OPERATOR Resu lts for this procedure are i n the results section . MR BRAIN WITHOUT IV Routine 01/22/2019 6:11 PM WET MILLING WHEEL OPERATOR Results for this CONTRAST procedure are i n the results section . CT/CTA CAROTID Routine 01/22/2019 4:59 PM WET MILLING WHEEL OPERATOR Re sults for this procedure are i n the results section . CTA BRAIN Routine 01/22/2019 4:59 PM WET MILLING WHEEL OPERATOR Resu lts for this procedure are i n the results section . 2D ECHO W/ DOPPLER Routine 01/22/2019 1:16 PM WET MILLING WHEEL OPERATOR Results for this (CW/PW/COLOR) procedure are in the results section . MAGNESIUM STAT Add-on 01/22/2019 4:17 AM WET MILLING WHEEL OPERATOR Resu lts for this procedure are i n the results section . TROPONIN I Routine 01/22/2019 4:17 AM WET MILLING WHEEL OPERATOR Resu lts for this procedure are i n the results section . HEMOGLOBIN A1C Routine 01/22/2019 4:17 AM WET MILLING WHEEL OPERATOR Re sults for this procedure are i n the results section . LIPID PANEL Routine 01/22/2019 4:17 AM WET MILLING WHEEL OPERATOR Resu lts for this procedure are i n the results section . CBC W/PLT COUNT & AUTO Routine 01/21/2019 11:26 PM WET MILLING WHEEL OPERATOR Results for this DIFFERENTIAL procedure are i n the results section . PROTHROMBIN TIME/INR Routine 01/21/2019 11:26 PM WET MILLING WHEEL OPERATOR Results for this procedure are i n the results section . VITAMIN B12 AND FOLATE Routine 01/21/2019 11:26 PM WET MILLING WHEEL OPERATOR Results for this procedure are i n the results section . RPR Routine 01/21/2019 11:26 PM WET MILLING WHEEL OPERATOR Resu lts for this procedure are i n the results section . TSH/FREE T4 IF INDICATED Routine 01/21/2019 11:26 PM WET MILLING WHEEL OPERATOR Results for this procedure are i n the results section . TROPONIN I Routine 01/21/2019 11:26 PM WET MILLING WHEEL OPERATOR Resu lts for this procedure are i n the results section . CBC W/PLT COUNT & AUTO Routine 01/21/2019 11:26 PM WET MILLING WHEEL OPERATOR Results for this DIFFERENTIAL procedure are i n the results section . BASIC METABOLIC PANEL (7) Routine 01/21/2019 11:26 PM WET MILLING WHEEL OPERATOR Results for this procedure are i n the results section . XR CHEST 1 VIEW Routine 01/21/2019 11:19 PM WET MILLING WHEEL OPERATOR R esults for this PORTABLE/BEDSIDE procedure a re in the results section . after 08/20/2018 Results RHYTHM STRIP - SCAN (07/02/2019 12:50 [...] : TESTED AT 70 - 110 mg/dL [facility] [address] [facility], [id number]: Curriculum Assistant Principal/Machine Cloth Examiner ID = [id number] for RYAN ECHOLS Specimen Blood Performing Organization Address City/State/Zipcode Phone Number [address] [address] C[place] Comprehensive metabolic panel (06/09/2019 11:30 AM CDT)Only the most recent of10 resultswithin the time period is included. Protein, Total 6.7Comment: Specimen 6.0 - 8.3 gm/dL [facility] slightly hemolyzed [facility] Albumin 2.1 (L)Comment: Specimen 3.5 - 5.0 g/dL [facility] slightly hemolyzed [facility] Alkaline Phosphatase 202 (H) 40 - 150 U/L [facility] ER Total Bilirubin 1.2Comment: Specimen 0.2 - 1.2 mg/dL [facility] slightly hemolyzed [facility] Sodium 142 136 - 145 meq/L [facility] Potassium 4.4Comment: Specimen 3.5 - 5.1 meq/L [facility] slightly hemolyzed [facility] Chloride 107 98 - 107 meq/L [facility] ER CO2 30 (H) 22 - 29 meq/L [facility] BUN 25 (H) 7 - 21 mg/dL [facility] ER Creatinine 0.76Comment: Specimen 0.57 - 1.25 mg/dL [facility] slightly hemolyzed [facility] Glucose 108 (H) 70 - 105 mg/dL [facility] ER Calcium 7.9 (L) 8.4 - 10.2 mg/dL [facility] ER AST 77 (H)Comment: Specimen 5 - 34 U/L [facility] slightly hemolyzed [facility] ALT 86 (H)Comment: Specimen 6 - 55 U/L [facility] slightly hemolyzed [facility] EGFR 103Comment: ESTIMATED mL/min/1.73 sq [facility] GFR IS NOT ACCURATE [facility] CREATININE CLEARANCE IN PREDICTING GLOMERULAR FILTRATION RATE. ESTIMATED GFR IS NOT APPLICABLE FOR DIALYSIS PATIENTS. Specimen Blood Narrative Performed At Curriculum Assistant Principal ID - ELISSA M [facility] Performing Organization Address City/State/Zipcode Phone Number [address] [address] [place] Potassium (06/05/2019 4:31 PM CDT)Only the most recent of2 resultswithin the time period is included. Potassium 3.9 3.5 - 5.1 meq/L [facility] [place] Specimen Blood Narrative Performed At Curriculum Assistant Principal ID - BS [facility] Performing Organization Address City/State/Zipcode Phone Number [address] [address] [place] Basic Metabolic Panel (06/05/2019 6:01 AM CDT)Only the most recent of74 results within the time period is included. Sodium 145 136 - 145 meq/L [facility] [place] Potassium 3.0 (L) 3.5 - 5.1 meq/L [facility] [place] Chloride 101 98 - 107 meq/L [facility] [place] CO2 38 (H) 22 - 29 meq/L [facility] [place] BUN 28 (H) 7 - 21 mg/dL [facility] [place] Creatinine 0.87 0.57 - 1.25 mg/dL [facility] Glucose 110 (H) 70 - 105 mg/dL [facility] [place] Calcium 7.9 (L) 8.4 - 10.2 mg/dL [facility] EGFR 88Comment: ESTIMATED GFR IS mL/min/1.73 sq m [facility] NOT ACCURATE CREATININE [facility] CLEARANCE IN PREDICTING GLOMERULAR FILTRATION RATE. ESTIMATED GFR IS NOT APPLICABLE FOR DIALYSIS PATIENTS. Specimen Blood Narrative Performed At Curriculum Assistant Principal ID - PIAYA L [facility] Performing Organization Address City/State/Zipcode Phone Number [place] [phone] [place] [address] [facility] esoph swallow funct with cine video (06/04/2019 2:45 PM CDT)Only the most recent of3 resultswithin the time period is included. Specimen Narrative Performed At FINAL REPORT GE RIS EXAMINATION: Modified barium swallow juan carlos [...] Report Verified Date/Time:06/04/2019 15:08:42 Reading Location: [address] Reading Room Procedure Note Interface, External [...] Verified Date/Time: 06/04/2019 1 5:08:42 Reading Location: [facility] [id number] [facility] Reading Room Performing Organization Address City/State/Zipcode Phone Number GE RIS CBC with platelet count + automated diff (06/04/2019 5:15 AM CDT)Only the most recent of56 resultswithin the time period is included. WBC 13.3 (H) 3.5 - 10.5 K/L [facility] RBC 4.12 (L) 4.63 - 6.08 M/L [facility] Hemoglobin 10.8 (L) 13.7 - 17.5 GM/DL [facility] Hematocrit 35.6 (L) 40.1 - 51.0 % [facility] [place] MCV 86.4 79.0 - 92.[address] [facility] [place] MCH 26.2 25.7 - 32.[address] [facility] [place] MCHC 30.3 (L) 32.3 - 36.5 GM/DL [facility] RDW 20.1 (H) 11.6 - 14.4 % [facility] Platelets 240 150 - 450 K/CU MM [facility] MPV 12.3 9.4 - 12.4 fL [facility] nRBC 0 0 - 0 /100 WBC [facility] % Neutros 71 % [facility] % Lymphs 16 % [facility] % Monos 9 % [facility] % Eos 3 % [facility] % Baso 1 % [facility] # Neutros 9.45 (H) 1.78 - 5.38 K/L [facility] # Lymphs 2.08 1.32 - 3.57 K/L [facility] # Monos 1.24 (H) 0.30 - 0.82 K/L [facility] # Eos 0.43 0.04 - 0.54 K/L [facility] # Baso 0.07 0.01 - 0.08 K/L [facility] Immature Granulocytes-Relative 0 0 - 1 % C HI [facility] Specimen Blood Performing Organization Address City/State/Zipcode Phone Number [facility] [address] [place] [address] [place] US abdomen limited (06/04/2019 2:10 AM CDT)Only the most recent of2 results within the time period is included. Specimen Narrative Performed At FINAL REPORT ibabybox History: Elevated LFTs Abdominal ultrasound dated 06/04/2019 [...] Date/Time: 06/04/2019 0 4:00:37 Performing Organization Address [facility] Phone Number RIS Ammonia (06/03/2019 2:56 PM CDT)Only the most recent of2 resultswithin the time period is included. Ammonia 82 (H) 18 - 72 mol/L [facility] [place] Specimen Blood Narrative Performed At Curriculum Assistant Principal ID - BS [facility] Performing Organization Address [facility] Phone Number [facility] [address] [place] [phone] [place] Magnesium (06/03/2019 5:25 AM CDT)Only the most recent of55 resultswithin the time period is included. Magnesium 2.2Comment: Specimen slightly 1.6 - 2.6 mg/dL [facility] hemolyzed [facility] Specimen Blood Narrative Performed At Curriculum Assistant Principal ID - BS [facility] Performing Organization Address City/State/Zipcode Phone Number [facility] [address] [place] [address] CENTER Blood gas, arterial (06/02/2019 8:15 AM CDT)Only the most recent of23 results within the time period is included. pH, Arterial 7.57 (H) 7.35 - 7.[address] [facility] [place] pCO2, Arterial 50 (H) 35 - [address] [facility] [place] pO2, Arterial 68 (L) 80 - [address] [facility] [place] O2 Sat, Arterial 95.6 (L) 96.0 - 97.0 % [facility] HCO3, Arterial 45 (HH) 21 - 29 mmol/L [facility] [place] Base Excess, Arterial 20.4 (H) -2.0 - 3.0 mmol/L [facility] Patient Temperature 36.7 C [facility] FIO2 21.0 % [facility] [place] Specimen Blood, Arterial Performing Organization Address City/[facility] Cent[facility]ode Phone Number [facility] [address] [place] [address] [place] Vancomycin level, trough (06/02/2019 1:24 AM CDT)Only the most recent of5 resultswithin the time period is included. Vancomycin Tr 32.2 (HH) 10.0 - 20.0 ug/mL [facility] Specimen Blood Narrative Performed At Curriculum Assistant Principal ID - SANDRA Richards [facility] Performing Organization Address City/State/Zipcode Phone Number [place] [phone] [place] [address] [place] ECHOCARDIOGRAM REPORT - SCAN (06/01/2019 9:20 PM CDT) Narrative Performed At This result has an attachment that is no t available. 2D Echo W/Doppler(CW/PW/Color) (06/01/2019 2:50 PM CDT) Ejection Fraction [facility] ECHO HEAR TLAB [facility] Specimen Narrative Performed At Transthoracic Echocardiography Report (T TE) [facility] ECHO HEARTLAB [facility] Demographics Patient Roya Valdes of Study06/01/2019 Male Visit [id number] Unknown Room [id number] Number Date of 1955Referring PhysicianOle Dominguez MD Age 63 year(s)Tunneling Machine Operator Isael Middleton Bias Cutting Machine Operator Aliya Yee Interpreting Stephan Conklin MD Procedure [...] of Study 06/01/2019 Gender Male Visit Number [id number] Race Unknown [facility] C724 Number Date of 1955 Referri Physician Ole Dominguez MD Age 63 year(s) Sonogra pher Abed Kane Bias Cutting Machine Operator Izumesh Yee Interpr eting Isaac Gonzalez MD Procedure [...] T CI: 2.59 l/min/m^2 Performing Organization Address City/[facility] Centercode Phone Number [facility] ECHO HEARTLAB MKCKESSON CPACS MRSA screen (06/01/2019 10:47 AM CDT)Only the most recent of2 resultswithin the time period is included. Result No MRSA isolated [facility] Specimen Nasal Performing Organization Address City/[facility] Phone Number [address] [address] [place] Phosphorus (06/01/2019 10:46 AM CDT)Only the most recent of48 resultswithin the time period is included. Phosphorus 4.3 2.3 - 4.7 mg/dL [facility] [place] Specimen Blood Narrative Performed At Curriculum Assistant Principal ID - CAROLINA F [facility] Performing Organization Address [facility] Medical Centercode Phone Number [address] [address] [place] Prothrombin time/INR (05/31/2019 10:31 AM CDT)Only the most recent of9 results within the time period is included. Protime 17.8 (H) 11.9 - 14.2 seconds [facility] INR 1.5 <=5.[address] [facility] [place] Specimen Blood Narrative Performed At Effective 07/24/2018: PT Reference Range [facility] Change New: 11.9-14.2Previous: 11.7-14.7 RECOMMENDED COUMADIN/WARFARIN INR THERAPY RANGES STANDARD DOSE: 2.0-3.0Includes: PROPHYLAXIS for venous thrombosis, systemic embolization; TREATMENT for venous thrombosis and/or pulmonary embolus. HIGH RISK: Target INR is 2.5-3.5 for patients wiht mechanical heart valves. Performing Organization Address City/State/Zipcode Phone Number [address] [address] [place] Hepatitis panel, acute (05/31/2019 8:24 AM CDT) Hep A IgM Reactive (A) Nonreactive [facility] [place] Hep B C IgM Nonreactive Nonreactive [facility] [place] Hepatitis C Ab Nonreactive Nonreactive [facility] [place] HBsAg Screen Nonreactive Nonreactive [facility] [place] Specimen Blood Narrative Performed At Curriculum Assistant Principal ID - SONIA Lloyd [facility] Performing Organization Address City/[facility] Medical Centercode Phone Number [address] [address] [place] B-type Natriuretic Factor (BNP) (05/31/2019 8:23 AM CDT)Only the most recent of 4 resultswithin the time period is included. BNP 1,536 (H) 0 - 100 pg/mL [facility] [place] Specimen Blood Narrative Performed At Curriculum Assistant Principal ID - ALMA Richards [facility] Performing Organization Address City/[facility] Medical Centercode Phone Number [address] [address] [place] Vancomycin level, random (05/31/2019 8:23 AM CDT)Only the most recent of2 resultswithin the time period is included. Vancomycin Rm 18.6 ug/mL [facility] [place] Specimen Blood Narrative Performed At Reference Range: No Normals [facility] Curriculum Assistant Principal ID - ALMA Richards Performing Organization Address City/State/Zipcode Phone Number [facility] [address] [place] [address] [place] Blood Culture - Routine (Right Venipuncture) (05/31/2019 8:22 AM CDT)Only the most recent of8 resultswithin the time period is included. Result No growth in 5 days [facility] Specimen Blood Performing Organization Address [facility] Phone Number [facility] [address] [place] [address] [place] ECG 12 lead (05/31/2019 7:21 AM CDT)Only the most recent of9 resultswithin the time period is included. Specimen Narrative Performed At Ventricular Rate 83 BPM GE MUSE Atrial Rate 76 BPM QRS Duration 122 ms Q-T Interval 376 ms QTC Calculation(Bazett) 441 ms R [place] 9 degrees T [place] 168 degrees Atrial fibrillation Left ventricular hypertrophy with QRS wi dening Nonspecific ST and T wave abnormality Abnormal ECG When compared with ECG of 30-MAY-2019 19 :25, No significant change was found Confirmed by MD YO YOCHAI ([id number]) on 06/02/2019 7 :02:10 AM Procedure Note Interface, External Ris In - 06/02/2019 7:02 AM CDT Ventricular Rate 83 BPM Atrial Rate 76 BPM QRS Duration 122 ms Q-T Interval 376 ms QTC Calculation(Bazett) 441 ms R [place] 9 degrees T [place] 168 degrees Atrial fibrillation Left ventricular hypertrophy with QRS wi dening Nonspecific ST and T wave abnormality Abnormal ECG When compared with ECG of 30-MAY-2019 19 :25, No significant change was found Confirmed by MD YO YOCHAI ([id number]) on 06/02/2019 7:02:10 AM Performing Organization Address City/[facility]/Zipcode Phone Number GE MUSE Urea Nitrogen, random urine (05/31/2019 3:26 AM CDT)Only the most recent of2 resultswithin the time period is included. Urea Nitrogen, Ur 332 mg/dL [facility] Specimen Urine Narrative Performed At Reference Range: No Normals [facility] Curriculum Assistant Principal ID - PIAYA L Performing Organization Address [facility] Centercode Phone Number [address] [address] [place] Sodium, random urine (05/31/2019 3:26 AM CDT)Only the most recent of2 results within the time period is included. Sodium Urine 59 meq/L [facility] [place] Specimen Urine Narrative Performed At Reference Range: No Normals [facility] Curriculum Assistant Principal ID - PIAYA L Performing Organization Address [facility] [facility] Phone Number [address] [address] [place] Creatinine, random urine (05/31/2019 3:26 AM CDT)Only the most recent of2 resultswithin the time period is included. Creatinine, Ur 24.9 mg/dL [facility] [place] Specimen Urine Narrative Performed At Reference Range: No Normals [facility] Curriculum Assistant Principal ID - PIAYA L Performing Organization Address [facility] Phone Number [address] [address] [place] XR chest 1 view portable / bedside (05/30/2019 9:03 PM CDT)Only the most recent of44 resultswithin the time period is included. Specimen Narrative Performed At FINAL REPORT [facility] History: Right-sided effusion noted on o utside [...] 2:00:23 Performing Organization Address City/State/Zipcode Phone Number [facility] XR chest 2 views (05/08/2019 12:14 PM CDT) Specimen Narrative Performed At FINAL REPORT [facility] EXAMINATION: PA and lateral views of the [...] Verified Date/Time: 05/09/2019 0 8:51:36 Reading Location: Grid2020 Rad Reading Dennise wallace 1 - B01.627 Performing Organization Address City/[facility] Phone Number GE RIS Prealbumin (04/23/2019 3:53 AM WET MILLING WHEEL OPERATOR) Prealbumin 7 (L) 14 - 45 mg/dL [facility] [place] Specimen Blood Narrative Performed At Curriculum Assistant Principal ID - ELISSA Wallace [facility] Performing Organization Address City/[facility]/Zipcode Phone Number [address] [address] [place] TRANSFUSION SERVICE REPORT - SCAN (04/19/2019 6:02 PM WET MILLING WHEEL OPERATOR)Only the most recent of6 resultswithin the time period is included. Narrative Performed At This result has an attachment that is no t available. Prepare Leuko-Red RBC (04/18/2019 11:54 PM WET MILLING WHEEL OPERATOR)Only the most recent of6 results within the time period is included. CROSSMATCH COMPATIBLE SAFETRACE TX Unit ABO A Neg SAFETRACE TX UNIT NUMBER [id number] SAFET[place]ACE TX Status TX_TIMEINCHART [place] Blood Bank Product RED BLOOD CELLS SAF[place]ACE [place] PRODUCT CODE [id number] [place] Specimen Other Performing Organization Address [facility] Phone Number [place] Transfuse Leuko-Red RBC (04/17/2019 11:41 AM WET MILLING WHEEL OPERATOR)Only the most recent of14 resultswithin the time period is included.aPTT (04/17/2019 3:30 AM WET MILLING WHEEL OPERATOR)Only the most recent of40 resultswithin the time period is included. PTT 41.6 (H) 22.5 - 36.0 seconds [facility] Specimen Blood Performing Organization Address [facility] Phone Number [address] [address] [place] Hemoglobin and hematocrit (04/17/2019 12:27 AM WET MILLING WHEEL OPERATOR)Only the most recent of2 resultswithin the time period is included. Hemoglobin 7.7 (L) 13.7 - 17.5 GM/DL [facility] Hematocrit 23.6 (L) 40.1 - 51.0 % [facility] [place] Specimen Blood Narrative Performed At Curriculum Assistant Principal ID - [id number] [facility] Performing Organization Address [facility]/Zipcode Phone Number [address] [address] [place] Prepare plasma (04/16/2019 11:54 PM WET MILLING WHEEL OPERATOR) Unit ABO A Pos SAFETRACE [place] UNIT NUMBER [id number] SAFETRACE TX Status TX_TIMEINCHART [place]AF[place] Blood Bank Product FFP SAF[place]ACE [place] PRODUCT CODE [id number] [place] Specimen Blood Performing Organization Address [facility] Phone Number S[place] Prepare cryoprecipitate (04/16/2019 11:54 PM WET MILLING WHEEL OPERATOR) Unit ABO A Pos [place] UNIT NUMBER [id number] SAFETRACE [place] Status TX_TIMEINCHART [place] Blood Bank Product CRYOPRECIPITATE SAFETRACE [place] PRODUCT CODE [id number] [place] Specimen Blood Performing Organization Address City/[facility] Phone Number [place] PERIPHERAL VASCULAR REPORT - SCAN (04/16/2019 9:23 PM WET MILLING WHEEL OPERATOR) Narrative Performed At This result has an attachment that is no t available. Calcium, Ionized (04/16/2019 3:28 AM WET MILLING WHEEL OPERATOR)Only the most recent of6 resultswithin the time period is included. Calcium, Ion 1.09 (L) 1.12 - 1.27 mmol/L [facility] pH, Blood [address] [facility] [place] Specimen Blood Performing Organization Address City/[facility] Phone Number [facility] [address] [place] [address] CENTER Central Line (04/15/2019 5:48 PM WET MILLING WHEEL OPERATOR) Narrative Performed At Enoch Chung NP 5:50 [...] verify the correct patient, procedure, equipmen t, sales support coordinator and site/side marked as required. Indications: vascular [...] Venous doppler arm, left (04/15/2019 11:30 AM WET MILLING WHEEL OPERATOR) [facility] Specimen Impressions Performed At [facility] ECHO [facility]ART[facility] Left Impression 1. There is total deep [...] Upper Extremities Veins SLE ECHO HEART[facility] Demographics Patient Name JOHN VERGARA Date of Study04/15/2019 [id number] [id number] Visit Number [id number] Gender Male Accession Number [id number] Date of Birth1955 [facility] Room [id number] TANIA Patten SonographerAidee Ruggiero, RVTInterpreting Alyssa Cabrera [...] External Ris In - 04/16/2019 10:57 AM WET MILLING WHEEL OPERATOR PV LAB - Upper Extremities Veins Demographics Patient Name JOHN VERGARA ate of Study 04/15/2019 A Bux180 63 Visit Number [id number] G amalia Male Accession Number [id number] ate of 1955 Referring Alicia howard Number [id number] Physician TANIA Mccracken Tunneling Machine Operator Aidee Ruggiero, RVT I nterpreting Pearl Cabrera MD Procedure Type [...] City/State/Zipcode Phone Number [facility] ECHO HEART[facility] Thromboelastograph (TEG) (04/15/2019 11:28 AM WET MILLING WHEEL OPERATOR) TEG Activated Clotting Time 5.0 4.0 - 7.[address] [facility] TEG Fibrinogen Activity 75.9 (H) 61.0 - 73.0 degrees [facility] TEG Platelet Aggregation 69.6 (H) 55.0 - 65.0 MM [facility] TEG Fibrinolysis 0.1 0.0 - 5.0 % [facility] TEG-H Activated Clotting Time 5.1 4.0 - 7.0 minutes [facility] TEG-H Fibrinogen Activity 76.0 (H) 61.0 - 73.[address] [facility] TEG-H Platelet Aggregation 65.7 (H) 55.0 - 65.0 MM [facility] TEG-H Fibrinolysis 4.1 0.0 - 5.0 % [facility] Specimen Blood Performing Organization Address City/[facility]/Zipcode Phone Number [facility] [address] [place], [place] [id number] CENTER Transfuse plasma (04/15/2019 11:03 AM WET MILLING WHEEL OPERATOR)Only the most recent of2 resultswithin the time period is included.Transfuse cryoprecipitate (04/15/2019 9:22 AM WET MILLING WHEEL OPERATOR) Only the most recent of2 resultswithin the time period is included.Lactic Acid, Arterial (04/15/2019 4:05 AM WET MILLING WHEEL OPERATOR) Lactate, Art 1.2 0.5 - 2.2 mmol/L [facility] Specimen Blood, Arterial Narrative Performed At Curriculum Assistant Principal ANGELI Wallace [facility] Performing Organization Address [facility] Cent[facility]ode Phone Number [facility] [address] [place] [address] CENTER PT/aPTT (04/15/2019 1:58 AM WET MILLING WHEEL OPERATOR)Only the most recent of4 resultswithin the time period is included. Protime 19.8 (H) 11.9 - 14.2 seconds [facility] INR 1.7 <=5.[address] [facility] [place] PTT 41.1 (H) 22.5 - 36.0 seconds [facility] Specimen Blood Narrative Performed At Effective 07/24/2018: PT Reference Range [facility] Change New: 11.9-14.2Previous: 11.7-14.7 RECOMMENDED COUMADIN/WARFARIN INR THERAPY RANGES STANDARD DOSE: 2.0-3.0Includes: PROPHYLAXIS for venous thrombosis, systemic embolization; TREATMENT for venous thrombosis and/or pulmonary embolus. HIGH RISK: Target INR is 2.5-3.5 for patients wiht mechanical heart valves. Performing Organization Address City/[facility] Centercode Phone Number [facility] [address] [address] [place] Fibrinogen (04/15/2019 1:58 AM WET MILLING WHEEL OPERATOR)Only the most recent of2 resultswithin the time period is included. Fibrinogen 177 (L) 225 - 434 mg/dl [facility] [place] Specimen Blood Performing Organization Address [facility] Phone Number [address] [address] [place] Cortisol (04/15/2019 12:07 AM WET MILLING WHEEL OPERATOR) Cortisol, Total 10.6 3.7 - 19.4 ug/dL [facility] Specimen Blood Narrative Performed At Curriculum Assistant Principal ID - BS [facility] Performing Organization Address [facility] Phone Number [address] [address] [place] AFB culture + smear (non-sputum) (04/14/2019 6:48 PM WET MILLING WHEEL OPERATOR)Only the most recent of10 resultswithin the time period is included. Result No acid-fast bacilli isolated in [facility] 42 days CENTER AFB Smear No acid fast bacilli seen [facility] Specimen BAL Performing Organization Address [facility] Phone Number [address] [address] [place] Fungus culture + smear (04/14/2019 6:48 PM WET MILLING WHEEL OPERATOR)Only the most recent of11 resultswithin the time period is included. Result <1+ Ana albicans (A) [facility] Fungus Smear No fungi seen [facility] [place] Specimen BAL Performing Organization Address [facility] Phone Number [address] [address] [place] SPIN/CONCENTRATION CHARGE (04/14/2019 6:48 PM WET MILLING WHEEL OPERATOR)Only the most recent of4 resultswithin the time period is included. Concentration charged Done [facility] Specimen BAL Performing Organization Address City/[facility] Centercode Phone Number [address] [address] [place] Bronchial culture + gram stain (04/14/2019 6:48 PM WET MILLING WHEEL OPERATOR)Only the most recent of3 resultswithin the time period is included. Result No growth [facility] [place] Gram Stain Result 1+ WBCs [facility] Gram Stain Result No organisms seen [facility] Specimen BAL Performing Organization Address [facility] Phone Number [address] [address] [place] Potassium-Stat Lab (04/14/2019 5:49 PM WET MILLING WHEEL OPERATOR)Only the most recent of3 results within the time period is included. Potassium 3.4 (L) 3.6 - 5.5 meq/L [facility] [place] Specimen Blood, Arterial Performing Organization Address [facility] Phone Number [address] [address] [place] Sodium Na-Stat Lab (04/14/2019 5:49 PM WET MILLING WHEEL OPERATOR)Only the most recent of3 results within the time period is included. Sodium 138 135 - 148 meq/L [facility] [place] Specimen Blood, Arterial Performing Organization Address City/[facility] Centercode Phone Number [address] [address] [place] Glucose-Stat Lab (04/14/2019 5:49 PM WET MILLING WHEEL OPERATOR)Only the most recent of3 resultswithin the time period is included. Glucose 100 70 - 110 mg/dL [facility] [place] Specimen Blood, Arterial Performing Organization Address City/[facility]/Zipcode Phone Number [address] [address] [place] HGB/HCT (H&H)-Stat Lab (04/14/2019 5:49 PM WET MILLING WHEEL OPERATOR)Only the most recent of3 resultswithin the time period is included. Hemoglobin 9.0 (L) 13.0 - 16.8 g/dL [facility] Hematocrit 26.0 (L) 40.0 - 50.0 % [facility] [place] Specimen Blood, Arterial Performing Organization Address [facility] Phone Number [address] [address] [place] Anaerobic culture (04/14/2019 5:15 PM WET MILLING WHEEL OPERATOR)Only the most recent of5 results within the time period is included. Result No anaerobes isolated [facility] Specimen Tissue Performing Organization Address [facility] Phone Number [address] [address] [place] Surgically obtained culture + gram stain (04/14/2019 5:15 PM WET MILLING WHEEL OPERATOR)Only the most recent of5 resultswithin the time period is included. Result No growth [facility] [place] Gram Stain Result 1+ WBCs [facility] Gram Stain Result No organisms seen [facility] Specimen Tissue Performing Organization Address [facility] Phone Number [address] [address] [place] Tissue Exam (04/14/2019 4:54 PM WET MILLING WHEEL OPERATOR) Case Report Surgical Pathology Report Case: [id number] [facility] Authorizing Provider:Fernando Esquivel MD Collected: 04/14/[address] [place] [address] Ordering Location: [facility] Received:04/15/2019 0933 PERIOPERATIVE SERVICES Pathologist: Gay Puentes MD Specimens: A) - Pleura, PARIETAL PLEURA B) - Lung, Right Lower Lobe, Right lower lobe C) - Lung, Right Middle Lobe, Right middle lobe D) - Lung, Right Upper Lobe, Right upper lobe DIAGNOSIS [facility] A. PLEURA, RIGHT, PARIETAL PLEURA, DECORTICATION : [facility] - CHRONIC FIBROSING PLEURITIS. - NEGATIVE [...] STIC ALTERATION. Signing Pathologist Direct Phone Line: [phone] CPT Code(s) 42692 X 4 [facility] HE ALTH [facility] CLINICAL HISTORY Empyema, right. [facility] H [facility]ALTH [facility] SPECIMEN SOURCE A. Pleura. B. Lung, right [facility] lower lobe. C. Lung, right [facility] middle lobe. D. Lung, right upper lobe GROSS DESCRIPTION A. Received in formalin labe led with the patient's name, accession number and "parietal pleura" is a 1.5 x 0.8 x 0.1 cm portion of devlin- pink fibromembranous tissue, which is entirely submitted in A1. [facility] ER B. Received in formalin labe led with [...] submitted in D1. PA/ew MICROSCOPIC DESCRIPTION Performed. [facility] Gross assessment was [facility] HI [facility] performed at [place], Department of [facility] Pathology, [address] [place] [address], Technical component was [facility] performed at [place], Department of [facility] Pathology, [address] [place] [address], Professional component [facility] was performed at [place], Department of [facility] Pathology, [address] [place] [address], Specimen Tissue Tissue - Structure of lower lobe of righ t lung (body structure) Tissue - Structure of middle lobe of rig ht lung (body structure) Tissue - Structure of upper lobe of righ t lung (body structure) Performing Organization Address City/State/Zipcode Phone Number [address] [address] [place] Cytology (04/14/2019 3:48 PM WET MILLING WHEEL OPERATOR)Only the most recent of2 resultswithin the time period is included. Case Report Medical Cytology Report Case: [id number] [facility] Authorizing Provider:Fernando Esquivel MD Collected: 04/14/2019 1548 [facility] Ordering Location: [facility] Received:04/15/2019 0913 PERIOPERATIVE SERVICES Pathologist: Sean Piedra MD Specimen:Pleural, Ri ght, Multi loculated pleural effusions DIAGNOSIS RIGHT PLEURAL FLUID (CYTOSPINS): [facility] - NEGATIVE FOR MALIGNANCY [facility] PREDOMINANTLY BLOOD Signing Pathologist Direct Phone Line: CPT Code(s) 35291 [facility] ALTH [facility] CLINICAL DATA Right multi loculated [facility] pleural effusions, [facility] pneumonia, acute respiratory failure SPECIMEN SOURCE RIGHT PLEURAL FLUID [facility] GROSS DESCRIPTION 750 mls bloody; 4 cytospins [facility] Collected: [id number] [facility]ICAL [facility] Received: [id number] STATEMENT OF ADEQUACY Satisfactory [facility] ER Gross assessment was [facility] C [facility] performed at [place], Department of [facility] Pathology, [address] [place] [address], Technical component was [facility] performed at [place], Department of [facility] Pathology, [address] [place] [phone], Professional component was [facility] performed at [place], Department of [facility] Pathology, [address] [place] [address], Specimen Body Fluid Narrative Performed At This result has an attachment that is no t available. Performing Organization Address City/[facility] Centercode Phone Number [address] [address] CENTER Type and screen, automated (04/14/2019 1:01 AM WET MILLING WHEEL OPERATOR)Only the most recent of2 resultswithin the time period is included. ABO/RH AUTOMATED (BEAKER) A NEGATIVE [facility] Ab Scrn NEGATIVE [facility] Specimen Blood Performing Organization Address City/[facility] Centercode Phone Number [address] [address] Hepatic function panel (04/13/2019 4:39 AM WET MILLING WHEEL OPERATOR)Only the most recent of3 results within the time period is included. Protein, Total 5.5 (L) 6.0 - 8.3 gm/dL [facility] [place] Albumin 1.8 (L) 3.5 - 5.0 g/dL [facility] [place] Total Bilirubin 1.1 0.2 - 1.2 mg/dL [facility] Bilirubin, Direct 0.7 (H) 0.1 - 0.5 mg/dL [facility] Alkaline Phosphatase 157 (H) 40 - 150 U/L [facility] AST 38 (H) 5 - 34 U/L [facility] [place] ALT 34 6 - 55 U/L [facility] [place] Specimen Blood Narrative Performed At Curriculum Assistant Principal ID - CHELSEY [facility] Performing Organization Address City/[facility]/Zipcode Phone Number [facility] [address] [place] [address] CENTER REPORT OF PROCEDURE - ENDOSCOPY URL (04/11/2019 10:15 AM WET MILLING WHEEL OPERATOR) Narrative Performed At This result has an attachment that is no t available. Body fluid culture + gram stain (04/09/2019 12:10 PM WET MILLING WHEEL OPERATOR)Only the most recent of 4 resultswithin the time period is included. Result No growth [facility] [place] Gram Stain Result <1+ WBCs [facility] Gram Stain Result <1+ gram negative rods [facility] Specimen Body Fluid Performing Organization Address City/[facility]/Zipcode Phone Number [address] [address] CENTER XR abdomen / KUB 1 view (04/04/2019 3:58 PM WET MILLING WHEEL OPERATOR)Only the most recent of4 resultswithin the time period is included. Specimen Narrative Performed At FINAL REPORT GE RIS Abdomen date 04/04/2019 Comment:Frontal view of the abdomen demonstrates a feeding tube present with tip noted in the descending duodenum. Signed: Tomasa Foss MD Report Verified Date/Time:04/04/2019 18:03:16 Reading Location: [facility] C[facility] Procedure Note Interface, External Ris In - 04/04/2019 6:05 PM WET MILLING WHEEL OPERATOR FINAL REPORT Abdomen date 04/04/2019 Comment: Frontal view of the abdomen de monstrates a feeding tube present with tip noted in the descending duodenum. Signed: Tomasa Foss MD Report Verified Date/Time: 04/04/2019 1 8:03:16 Reading Location: [facility] C[facility] Performing Organization Address City/State/Zipcode Phone Number GE RIS Troponin I (03/31/2019 1:59 PM WET MILLING WHEEL OPERATOR)Only the most recent of11 resultswithin the time period is included. Troponin I 0.20 (HH) 0.00 - 0.03 ng/mL [facility] Specimen Blood Narrative Performed At Troponin I (TnI) levels must be interpreted [facility] in the context of the presenting symptoms and the clinical findings. Elevated TnI levels indicate myocardial damage, but are not specific for ischemic heart disease. Elevated TnI levels are seen in patients with other cardiac conditions (including myocarditis and congestive heart failure), and slight TnI elevations occur in patients with other conditions, including sepsis, renal failure, acidosis, acute neurological disease, and persistent tachyarrhythmia. Curriculum Assistant Principal ID - SONIA Lloyd Performing Organization Address City/[facility]/[place] [address] [place] Lactic acid, venous (03/31/2019 1:59 PM WET MILLING WHEEL OPERATOR)Only the most recent of5 results within the time period is included. Lactate, Venous 1.7 0.5 - 2.2 mmol/L [facility] Specimen Blood Narrative Performed At Curriculum Assistant Principal ID - SONIA Lloyd [facility] Performing Organization Address City/[facility]/Zipcode Phone Number [address] [address] chest for pulmonary embolus (03/30/2019 11:54 PM WET MILLING WHEEL OPERATOR) Specimen Narrative Performed At FINAL REPORT GE [...] This exam was performed according to the [facility] dose optimization program which includes automated [...] External Ris In - 03/31/2019 12:29 AM WET MILLING WHEEL OPERATOR FINAL REPORT Comparison: CT chest dated 03/17/2019 [...] This exam was performed according to the [facility] dose optimization program which includes automated [...] 0:25:44 Performing Organization Address City/State/Zipcode Phone Number ibabybox CT brain without IV contrast (03/30/2019 11:54 PM WET MILLING WHEEL OPERATOR)Only the most recent of2 resultswithin the time period is included. Specimen Narrative Performed At FINAL REPORT ibabybox EXAM: CT, BRAIN, WITHOUT CONTRAST CLINICAL INDICATION: [...] External Ris In - 03/31/2019 4:22 AM WET MILLING WHEEL OPERATOR FINAL REPORT EXAM: CT, BRAIN, WITHOUT CONTRAST [...] 4:20:24 Performing Organization Address City/State/Zipcode Phone Number [facility] POCT-HEMATOCRIT (03/30/2019 8:53 PM WET MILLING WHEEL OPERATOR) POC-Hematocrit 28 (L)Comment: TESTED AT 40 - 50 % [address] [facility] [address] Specimen Blood Performing Organization Address City/[facility]/Zipcode Phone Number [address] [address] [place] POCT-HEMOGLOBIN (03/30/2019 8:53 PM WET MILLING WHEEL OPERATOR) POC-Hemoglobin 9.5 (L)Comment: TESTED AT 13.0 - 16.8 g/dL [address] [place] [address]AHDYBG AT [address] [address] Specimen Blood Performing Organization Address [facility] Cent[facility]ode Phone Number [address] [address] [place] POCT-GLUCOSE (03/30/2019 8:53 PM WET MILLING WHEEL OPERATOR) POC-Glucose 249 (H)Comment: TESTED AT 70 - 110 mg/dL [address] [address] Specimen Blood Performing Organization Address [facility] Centercoma Phone Number [address] [address] [place] POC-Sodium (03/30/2019 8:53 PM WET MILLING WHEEL OPERATOR) POC-Sodium 147Comment: TESTED AT [facility] 135 - 148 meq/L [address] [address] Specimen Blood Performing Organization Address City/[facility] Medical Centercode Phone Number [address] [address] CENTER POC-Potassium (03/30/2019 8:53 PM WET MILLING WHEEL OPERATOR) POC-Potassium 4.1Comment: TESTED AT [facility] 3.6 - 5.5 meq/L [address] [address] Specimen Blood Performing Organization Address City/[facility]/Zipcode Phone Number [address] [address] [place] POC-Calcium ionized (03/30/2019 8:53 PM WET MILLING WHEEL OPERATOR) POC-Calcium Ionized 1.63 ()Comment: 1.12 - 1.27 mmol/L [facility] TESTED AT [address] [address] Specimen Blood Performing Organization Address [facility]/Zipcode Phone Number [address] [address] [place] POC-Blood gases, arterial (03/30/2019 8:53 PM WET MILLING WHEEL OPERATOR) Temp. Celsius-POC 36.1 [facility] FIO2-POC 100Comment: TESTED AT [address] [address] pH, Arterial-POC 7.320 (L) 7.350 - 7.450 [facility] PCO2, Arterial-POC 61.8 (H) 35.0 - 45.0 mm Hg [facility] PO2, Arterial-POC 409.0 (H) 80.0 - 90.0 mm Hg [facility] SO2, Arterial-POC 100.0 (H) 96.0 - 97.0 % [facility] HCO3, Arterilal-POC 32.2 (H) 21.0 - 29.0 meq/L [facility] BE, Arterial-POC 6.0 (H) -2.0 - 3.0 meq/L [facility] Specimen Blood Performing Organization Address City/[facility]/Zipcode Phone Number [address] [address] [place] ECHOCARDIOGRAM REPORT - SCAN (03/26/2019 9:11 PM WET MILLING WHEEL OPERATOR) Narrative Performed At This result has an attachment that is no t available. IR Drainage Catheter Change (03/26/2019 7:30 PM WET MILLING WHEEL OPERATOR) Specimen Narrative Performed At FINAL REPORT ibabybox Fluoroscopic guided replacement of a right chest tube. History: Patient's right chest tube has been retracted and is poorly draining.. Modality: Fluoroscopy Sedation: None Anesthesia:Two percent Lidocaine without epinephrine. Approach:Existing right chest tube Estimated blood loss:< 5 cc. Specimen: None. bulk system operator: Nato Dang MD. Enamel Finisher: Lauren. Fluoroscopy Time: 0.5 min. Reference Air [...] ove r the guidewire. A new 8.5 [place] Cook multipurpose drainage cathet er was advanced [...] MD Report Verified Date/Time:03/28/2019 14:57:26 Reading Location: [place] [address] Angio Body Reading Room Procedure Note Interface, External Ris In - 03/28/2019 2:59 PM WET MILLING WHEEL OPERATOR FINAL REPORT Fluoroscopic guided replacement of a ri ght chest tube. History: Patient's right chest tube has been retracted and is poorly draining.. Modality: Fluoroscopy Sedation: None Anesthesia: Two percent Lidocaine witho ut epinephrine. Approach: Existing right chest tube Estimated blood loss: < 5 cc. Specimen: None. bulk system operator: Nato Dang MD. Enamel Finisher: Lauren. Fluoroscopy Time: 0.5 min. Reference Air [...] ove r the guidewire. A new 8.5 [place] Cook multipurpose drainage cathet er was advanced [...] Verified Date/Time: 03/28/2019 1 4:57:26 Reading Location: [facility] B1 P048 Angio Body Reading Room Performing Organization Address City/State/Zipcode Phone Number [facility] 2D Echo W/Doppler(CW/PW/Color) (03/25/2019 7:04 PM WET MILLING WHEEL OPERATOR) Ejection Fraction [facility] ECHO HEAR TLAB MKCKIQzoneON CPA Specimen Narrative Performed At Transthoracic Echocardiography Report (T TE) [facility] ECHO HEARTLAB MKCKESSON CPACS Demographics Patient JOHN Valdes Date of Study03/25/2019 Gender Male Visit [id number] Race Luis Carlos tran [id number] Number Date of 1955 Referring PhysicianJerald Christensen [...] External Ris In - 03/26/2019 8:35 AM WET MILLING WHEEL OPERATOR Transthoracic Echocardiography Report (TTE) Demographics Patient Name JOHN VERGARA Date of Study 03/25/2019 Gender Male Visit Number [id number] Race Unknown Room [place] [address] Number Date of 1955 Refermatthias perdomo Physician Jerald Christensen Age 63 year(s) Sonograp her Abimael Estrada MD Physicia n Procedure Type of [...] cm LV PW Diastolic: 0.95 cm LVEDV Paulmbo's:53.37 ml LVESV Palumbo's:11.86 ml LVEF Palumbo's: 77.8 [...] City/State/Zipcode Phone Number [facility] ECHO HEARTLAB MKCKESSON [facility] CT chest without IV contrast (03/25/2019 6:00 PM WET MILLING WHEEL OPERATOR)Only the most recent of2 resultswithin the time period is included. Specimen Narrative Performed At FINAL REPORT ibabybox CT of the Chest, abdomen and pelvis [...] MD Report Verified Date/Time:03/25/2019 18:26:29 Reading Location: [facility] B1 C013Y CT Body R [facility] Procedure Note Interface, External Ris In - 03/25/2019 6:29 PM WET MILLING WHEEL OPERATOR FINAL REPORT CT of the Chest, abdomen [...] Verified Date/Time: 03/25/2019 1 8:26:29 Reading Location: [facility] B1 C013Y CT Body R eading Room Performing Organization Address City/State/Zipcode Phone Number [employer] CT abdomen/pelvis without iv contrast (03/25/2019 6:00 PM WET MILLING WHEEL OPERATOR) Specimen Narrative Performed At FINAL REPORT ibabybox CT of the Chest, abdomen and pelvis [...] MD Report Verified Date/Time:03/25/2019 18:26:29 Reading Location: [facility] C013Y CT Body R eading Room Procedure Note Interface, External Ris In - 03/25/2019 6:29 PM WET MILLING WHEEL OPERATOR FINAL REPORT CT of the Chest, abdomen [...] Verified Date/Time: 03/25/2019 1 8:26:29 Reading Location: [facility] B1 C013Y CT Body R ding Room Performing Organization Address City/State/Zipcode Phone Number GE RIS Urinalysis w/Microscopic + Reflex to Culture (03/25/2019 9:08 AM WET MILLING WHEEL OPERATOR)Only the most recent of2 resultswithin the time period is included. Color, UA Yellow [facility] [place] Clarity, UA Hazy [facility] Specific [place], UA 1.018 1.001 - 1.035 [facility] pH, UA 5.5 5.0 - 8.[address] [facility] [place] Protein, UA 50 mg/dL (A) Negative [facility] [place] Glucose, UA Negative Negative [facility] [place] Ketones, UA Negative Negative [facility] [place] Bilirubin, UA Negative Negative [facility] [place] Blood, UA Small (A) Negative [facility] Nitrite, UA Negative Negative [facility] Leukocytes, UA Large (A) Negative [facility] Urobilinogen, UA 6.0 (H) 0.2 - 1.0 mg/dL [facility] RBC, UA <1 /HPF [facility] WBC, UA 54 /HPF [facility] Bacteria, UA Few [facility] Mucus Few [facility] Squam Epithel, UA <1 /HPF [facility] Hyaline Casts, UA 1 /LPF [facility] Specimen Source [facility] [place] Specimen Urine Narrative Performed At Curriculum Assistant Principal ID - [auto] [facility] Curriculum Assistant Principal ID - [email or web address] Performing Organization Address City/[facility]/Zipcode Phone Number [address] [address] [place] Sputum Culture + Gram Stain (03/25/2019 9:08 AM WET MILLING WHEEL OPERATOR)Only the most recent of2 resultswithin the time period is included. Result See comment [facility] [place] Gram Stain Result 4+ WBCs [facility] Gram Stain Result 0-[address] [facility] Gram Stain Result No organisms seen [facility] Specimen Sputum Narrative Performed At 2+ Yeast [facility] No Normal respiratory rigo present Performing Organization Address City/State/Zipcode Phone Number [address] [address] [place] Urine culture (03/25/2019 9:08 AM WET MILLING WHEEL OPERATOR)Only the most recent of2 resultswithin the time period is included. Result No growth [facility] [place] Specimen Urine Performing Organization Address City/State/Zipcode Phone Number [facility] [address] [place] [address] CENTER EEG EXTENDED MONITORING 40 - 60 MINUTES (03/24/2019 11:23 AM WET MILLING WHEEL OPERATOR) Specimen Narrative Performed At Date(s) of EE03/24/2019 GE RIS DATE OF REPORT:03/24/2019 ACC: [id number] EEG Number: [id number] Test Location: Inpatient ICU Start time: 03/24/2019 10:42 Stop time: 03/24/2019 11:23 ICD-10: R56.9 CPT Code: 52698 HISTORY: 63 y.o. male with hypertens ion, diastolic heart failure, chronic kidney disease who was transferr ed to [facility] for effusions and remains altered with concern [...] aftermath of ear lier seizure activity, other PRODUCT SAFETY ADMINISTRATOR insult, or toxic-metabolic derangeme nts. An EEG without epileptiform discharges does not exclude the possibili ty of epilepsy. If the clinical suspicion of epilepsy re spencer, consider additional EEG recordings. Nando Metz MD Neurophysiology Fellow Elia Martinez M.D., FACDEB, FAAN, CALIN Syed Professor of Neurology, [facility] Medicine Director, [facility] Comprehensiv e Epilepsy Center Head, [facility] at [place], [place] Procedure Note Interface, External Ris In - 03/24/2019 12:32 PM WET MILLING WHEEL OPERATOR Date(s) of EE03/24/2019 DATE OF REPORT: 03/24/2019 ACC: [id number] EEG Number: [id number] Test Location: Inpatient ICU Start time: 03/24/2019 10:42 Stop time: 03/24/2019 11:23 ICD-10: R56.9 CPT Code: 51162 HISTORY: 63 y.o. male with hypertensio n, diastolic heart failure, chronic kidney disease who was transferr ed to [facility] for effusions and remains altered with concern [...] aftermath of ear lier seizure activity, other PRODUCT SAFETY ADMINISTRATOR insult, or toxic-metabolic derangeme nts. An EEG without epileptiform discharges does not exclude the possibility of epilepsy. If the clinical suspicion of epilepsy re spencer, consider additional EEG recordings. Nando Metz MD Neurophysiology Fellow Elia Martinez M.D., FACNS, FAAN, CALIN S Professor of Neurology, [facility] Director, [facility] Epilepsy Center Head, [facility] at [place], [place] Performing Organization Address City/State/Zipcode Phone Number GE RIS Manual Differential (03/23/2019 5:58 AM WET MILLING WHEEL OPERATOR)Only the most recent of2 results within the time period is included. % Neutros 93 % [facility] [place] % Lymphs 4 % [facility] [place] % Monos 2 % [facility] [place] % Atypical Lymphs 1 (H) 0 - 0 % [facility] # Neutros 22.69 (H) 1.78 - 5.38 K/ul [facility] # Lymphs 0.98 (L) 1.32 - 3.57 K/ul [facility] # Monos 0.49 0.30 - 0.82 K/uL [facility] # Atypical Lymphs 0.24 (H) 0.00 - 0.00 K/uL [facility] Total Counted [address] [facility] WBC Morphology Normal [facility] [place] Platelet Morphology Normal [facility] Anisocytosis 1+ few [facility] Poikilocytes 1+ few [facility] Ovalocytes 1+ few [facility] [place] Cells 1+ few [facility] Artifact Present [facility] Platelet Conc Adequate [facility] Specimen Blood Narrative Performed At Curriculum Assistant Principal ID - Mariela Overholt [facility] User comments: Slide comments: Performing Organization Address City/State/Zipcode Phone Number [facility] [address] [place] [address] CENTER Body fluid cell count with differential (03/22/2019 2:37 PM WET MILLING WHEEL OPERATOR)Only the most recent of3 resultswithin the time period is included. Appearance Bloody (A) Clear [facility] Color Red (A) Colorless, Straw [facility] RBCs 88,000 (H) <=1 /cu mm [facility] Adjusted WBC Count 36,367 (H) <=5 /cu mm [facility] Lining Cells 364 (H) <=1 /cu mm [facility] % Segs 85 % [facility] % Lymphs 4 % [facility] % Monos 10 % [facility] % Eos 1 % [facility] % Baso 0 % [facility] Container Body Fluid EDTA Tube [facility] Specimen Body Fluid Performing Organization Address City/State/Zipcode Phone Number [facility] [address] [place] [address] CENTER Triglycerides, Pleural Fluid (03/22/2019 2:36 PM WET MILLING WHEEL OPERATOR)Only the most recent of3 resultswithin the time period is included. TRIGLYCERIDES, PLEURAL 35 See Note: mg/dL [facility] FLUID Comment: INCORPORATED Reference Range: CHYLOUS: >110 NONCHYLOUS:<50 SAMPLE SLIGHTLY LIPEMIC. SAMPLE MODERATELY HEMOLYZED. Specimen Body Fluid Narrative Performed At Performing Lab [facility] EZ [facility] [address] [address] [place] [address] Alia Luna MD, PhD, SOTO Performing Organization Address [facility] Number [facility] [place] [address] INCORPORATED [address] [address] Protein, Total, Pleural Fluid (03/22/2019 2:36 PM WET MILLING WHEEL OPERATOR)Only the most recent of3 resultswithin the time period is included. PROTEIN, TOTAL, PLEURAL FLUID 2.6 [facility] Specimen Body Fluid Performing Organization Address [facility] [place], [place] [address] INCOR[place]ATED [address] [facility]moccas[facility] Lactate Dehydrogenase (LD), Pleural Fluid (03/22/2019 2:36 PM WET MILLING WHEEL OPERATOR)Only the most recent of3 resultswithin the time [...] Lab [facility] [address] [address] [place] [address] Alia Luna MD, PhD, SOTO Performing Organization Address [facility] Phone Number [employer] [place] [address] INCORPORATED [address] [address] Glucose Pleural Fluid (03/22/2019 2:36 PM WET MILLING WHEEL OPERATOR)Only the most recent of3 results within the time period is included. Glucose, Pleural Fluid 29 mg/dL [facility] Comment: INCORPORATED SAMPLE SLIGHTLY LIPEMIC. SAMPLE MODERATELY HEMOLYZED. Reference range approximates that found in serum . Specimen Body Fluid Narrative Performed At Performing Lab [employer] [facility] EZ [employer] [address] [address] [place] [address] Alia Lnua MD, PhD, SOTO Performing Organization Address City/[facility] Cent[facility]ode Phone Number [facility] [place] [address] [address] [facility] pH, body fluid (03/22/2019 2:36 PM WET MILLING WHEEL OPERATOR)Only the most recent of3 resultswithin the time period is included. pH, Body Fluid 7.5 [facility] PH FLUID TYPE Body fluid [facility] Comment: Reference range: Reference ranges have not been established on is type of fluid for this test. Specimen Body Fluid Narrative Performed At Performing Lab [employer] [facility] *[place] [employer] [facility] [place], [address] [place] [address] Dr. Guillen[place]ADY, [place] Pearl Kent MD, PhD Performing Organization Address [facility] Phone Number [employer] [place], [place] [address] [address] [facility] Adenosine Deaminase, Fluid (03/22/2019 2:36 PM WET MILLING WHEEL OPERATOR)Only the most recent of2 resultswithin the time [...] of this test have been determined by [place], [place].This test s hould not be used for diagnosis without confirmation b y other medically established means. Specimen Body Fluid Narrative Performed At Performing Lab [facility] [address] [employer] Cent[facility] [place], [address] [facility] Dr. Guillen [place] Pearl Kent MD, PhD Performing Organization Address [facility] Centercode Phone Number [place] [address] [address] [facility] Albumin Pleural Fluid (03/22/2019 2:35 PM WET MILLING WHEEL OPERATOR)Only the most recent of2 results within the time period is included. Albumin, Pleural Fluid 0.8 [facility] Specimen Body Fluid Performing Organization Address City/State/Zipcode Phone Number [facility], [place] [address] [address] [facility] Legionella culture (03/22/2019 2:32 PM WET MILLING WHEEL OPERATOR) Result No Legionella species isolated C HI [facility] Specimen BAL Performing Organization Address City/State/Zipcode Phone Number [place] [phone] [place] [address] CENTER US drainage chest with tube insertion (03/21/2019 6:25 PM WET MILLING WHEEL OPERATOR) Specimen Narrative Performed At FINAL REPORT [facility] Ultrasound guided insertion of bilatera l pigtail chest tube catheters. History: Bilateral loculated pleural effusions. Modality: Ultrasound Sedation: None Anesthesia:Two percent Lidocaine without epinephrine. Approach:Bilateral mid axillary line Estimated blood loss:< 5 cc. Specimen: Left bedside. bulk system operator: Nato Dang MD. Enamel Finisher: None. Technique: Informed written consent was obtained. [...] a large loculated right pleural effusion. The [facility] axillary line was marked, prepped with correcting, draped in the u sual sterile fashion. After local anesthesia was achieved with lidoc tiera small skin incision was made along the right midaxillary line at a low intercostal space. Under direct ultrasound guidance an 8 Fr [facility] skater pigtail drain was advanced into the [...] patient 's left chest and an 8 Yakut skater pigtail drain was placed in a sim ilar fashion and connected to the atrium pleura. The patient tolerated the procedure well without evidence of immediate competition. Impression: Technically successful and uncomplicated placement of bilateral pigtail chest tubes under ultrasound guidance. Signed: Nato Dang MD Report Verified Date/Time:03/21/2019 19:48:47 Reading Location: [place] [address] Angio Body Reading Room Procedure Note Interface, External Ris In - 03/21/2019 7:50 PM WET MILLING WHEEL OPERATOR FINAL REPORT Ultrasound guided insertion of bilatera l pigtail chest tube catheters. History: Bilateral loculated pleural eff usions. Modality: Ultrasound Sedation: None Anesthesia: Two percent Lidocaine witho ut epinephrine. Approach: Bilateral mid axillary line Estimated blood loss: < 5 cc. Specimen: Left bedside. bulk system operator: Nato Dang MD. Enamel Finisher: None. Technique: Informed written consent was obtained. [...] a large loculated right pleural effusion. The [facility] axillary line was marked, prepped with [...] patient 's left chest and an 8 Yakut skater pigtail drain was placed in a sim ilar fashion and connected to the atrium pleura. The patient tolerated the procedure well without evidence of immediate competition. Impression: Technically successful and uncomplicated placement of bilateral pigtail chest tubes under ultrasound es dance. Signed: Nato Dang MD Report Verified Date/Time: 03/21/2019 1 9:48:47 Reading Location: [facility] B1 P048 Angio Body Reading Room Performing Organization Address City/State/Zipcode Phone Number [facility] Respiratory Panel [facility] (03/21/2019 8:50 AM WET MILLING WHEEL OPERATOR) Human Metapneumovirus Not detected Not detected, [facility] [employer] [facility] Rhinovirus Not detected Not detected, [facility] [employer] [facility] Influenza A Not detected Not detected, [facility] [employer] [facility] INFLUENZA A (NO SUBTYPE) [facility] Influenza A subtype H1 [facility] ER Influenza A Subtype H3 [facility] Influenza A Subtype H1-2009 [facility] ER Influenza B Not detected Not detected, [facility] [employer] [facility] Respiratory Syncytial Virus Not detected Not detected, [facility] [employer] [facility] Parainfluenza Virus 1 Not detected Not detected, [facility] [employer] [facility] Parainfluenza Virus 2 Not detected Not detected, [facility] [employer] [facility] Parainfluenza virus 3 Not detected Not detected, [facility] [employer] [facility] Parainfluenza Virus 4 Not detected Not detected, [facility] [employer] [facility] Adenovirus Not detected Not detected, [facility] [facility] Coronavirus 229E Not detected Not detected, [facility]ocal [facility] Coronavirus HKU1 Not detected Not detected, [facility] Coronavirus NL63 Not detected Not detected, [facility] Coronavirus OC43 Not detected Not detected, [facility] Equ[facility]ocal [facility] Bordetella Pertussis Not detected Not detected, [facility] Equ[facility]ocal [facility] Chlamydophila Pneumoniae Not detected Not detected, [facility]ocal [facility] Mycoplasma Pneumoniae Not detected Not detected, [facility] Specimen Nasopharyngeal Narrative Performed At Other viruses and bacteria not targeted by [facility] this PCR panel cannot be excluded; therefore clinical correlation and follow up of serology, culture results, and other molecular studies is required. The results are not intended to be used as the sole means for clinical diagnosis or patient management decisions. This sample was tested at the [facility] using the [employer] FilmArray Respiratory Panel. It is FDA cleared and has been verified and approved by the [facility] for clinical use on nasopharyngeal swab specimens. The performance of the FilmArray RP has not been established in individuals who received influenza vaccine.Recent administration of a nasal influenza vaccine may cause false positive results for Influenza A and/or Influenza B. Performing Organization Address City/[facility] Cent[facility]ode Phone Number [address] [address] CENTER Reticulocyte count (03/21/2019 8:50 AM WET MILLING WHEEL OPERATOR) % Retic 1.9 (H) 0.5 - 1.8 % [facility] [place] Specimen Blood Narrative Performed At Curriculum Assistant Principal ID - [id number] [facility] Performing Organization Address [facility]/Zipcode Phone Number [address] [address] [place] Rapid Influenza A&B Screen (03/21/2019 8:50 AM WET MILLING WHEEL OPERATOR) Rapid Influenza A Antigen Negative Negative, Inconclusive [facility] Rapid influenza B Antigen Negative Negative, Inconclusive [facility] Specimen Nasal Performing Organization Address City/[facility] Medical Centercode Phone Number [address] [address] CENTER Vitamin B12 and Folate (03/21/2019 8:49 AM WET MILLING WHEEL OPERATOR)Only the most recent of2 results within the time period is included. Vitamin B12 >2000 (H) 213 - 816 pg/mL [facility] [place] Folate 17.3 >=7.0 ng/mL [facility] [place] Specimen Blood Narrative Performed At Curriculum Assistant Principal ID - ELISSA Wallace [facility] Performing Organization Address [facility] Centercoma Phone Number [address] [address] CENTER Iron, TIBC, % sat. (without ferritin) (03/21/2019 8:49 AM WET MILLING WHEEL OPERATOR) Iron 39.0 (L) 40.0 - 160.0 ug/dL [facility] TIBC 113 (L) 250 - 450 ug/dL [facility] [place] Iron % Saturation 35 20 - 55 % [facility] Specimen Blood Narrative Performed At Curriculum Assistant Principal ID - ELISSA Wallace [facility] Performing Organization Address City/[facility] Centercode Phone Number [address] [address] CENTER Lactate dehydrogenase (LDH) (03/21/2019 8:49 AM WET MILLING WHEEL OPERATOR) LDH 300 (H) 125 - 220 U/L [facility] [place] Specimen Blood Narrative Performed At Curriculum Assistant Principal ID - ELISSA Wallace [facility] Performing Organization Address City/[facility] Centercode Phone Number [address] [address] CENTER Ferritin (03/21/2019 8:49 AM WET MILLING WHEEL OPERATOR) Ferritin 1,076 (H) 5 - 275 ng/mL [facility] [place] Specimen Blood Narrative Performed At Curriculum Assistant Principal ID - ELISSA Wallace [facility] Performing Organization Address City/State/Zipcode Phone Number [address] [address] [place] ECHOCARDIOGRAM REPORT - SCAN (03/20/2019 9:22 PM WET MILLING WHEEL OPERATOR) Narrative Performed At This result has an attachment that is no t available. 2D Echo W/Doppler(CW/PW/Color) (03/20/2019 11:05 AM WET MILLING WHEEL OPERATOR) Ejection Fraction [facility] ECHO HEAR TLAB MKInRiverON [facility] Specimen Narrative Performed At Transthoracic Echocardiography Report (T TE) [facility] ECHO HEARTLAB MKCKESSON [facility] Demographics Patient JOHN Valdes Date of Study03/20/2019 Gender Male Visit [id number] Race Unk nown [id number] Number Date of 1955 Referring Physician Age [...] severity assessment is unreliable . Aortic Valve Stqg-ve-rtziwuej AoV cusp calcification. Mi ld aortic stenosis. [...] External Ris In - 03/20/2019 3:29 PM WET MILLING WHEEL OPERATOR Transthoracic Echocardiography Report (TTE) Demographics Patient Name JOHN VERGARA Date of Study 03/20/2019 Gender Male Visit Number [id number] Race Unknown Room Num [facility] 7102 Number Date of 1955 Eileen perdomo Physician Age 63 year(s) Sonograp her Gabrielle Mel[facility] Ziyad Bentley MD Physicia n Procedure [...] severity assessment is unreliable . Aortic Valve Slzd-ts-qpuormui AoV cusp calcification. Mild aortic sten osis. [...] T CI: 3.5 l/min/m^2 Performing Organization Address City/[facility]/Zipcode Phone Number [facility] ECHO HEARTLAB MKCKESSON CPACS ABORH, manual (03/20/2019 5:48 AM WET MILLING WHEEL OPERATOR) ABO Grouping A [facility] Rh Factor NEG [facility] Specimen Blood Performing Organization Address [facility] Center[facility] Phone Number [address] [address] TSH/Free T4 If Indicated (03/20/2019 3:00 AM WET MILLING WHEEL OPERATOR)Only the most recent of3 resultswithin the time period is included. TSH 3.06 0.35 - 4.94 uIU/mL [facility] Specimen Blood Narrative Performed At Curriculum Assistant Principal ID - BS [facility] Performing Organization Address [facility] Phone Number [address] [address] CENTER Hemoglobin A1c (03/20/2019 3:00 AM WET MILLING WHEEL OPERATOR)Only the most recent of2 resultswithin the time period is included. Hemoglobin A1C 6.2 (H) 4.3 - 6.1 % [facility] [place] Specimen Blood Performing Organization Address [facility] Centercode Phone Number [address] [address] CENTER Lipid panel (03/20/2019 2:59 AM WET MILLING WHEEL OPERATOR)Only the most recent of2 resultswithin the time period is included. Triglycerides 60Comment: Specimen slightly mg/dL [facility] hemolyzed [facility] [place] Cholesterol 55Comment: Specimen slightly mg/dL [facility] hemolyzed [facility] HDL 15 mg/dL [facility] [place] LDL Calculated 28 mg/dL [facility] [place] Specimen Blood Narrative Performed At Triglyceride Reference Range: [facility] Low Risk <150 [id number] High Risk 200-499 Very High Risk>=500 Cholesterol Reference Range: Low Risk <200 [id number] High Risk>240 HDL Cholesterol Reference Range: Low Risk >=60 High Risk <40 LDL Cholesterol Reference Range: Optimal<100 Near Ubwysae833-603 Uuouvyiuqk106-579 Vhin520-253 Very High >=190 Curriculum Assistant Principal ID - SANDRA Richards Specimen slightly icteric Performing Organization Address City/[facility]/Zipcode Phone Number [address] [address] CENTER Strep pneumoniae antigen (03/20/2019 2:23 AM WET MILLING WHEEL OPERATOR) Strep pneumoniae Presumptive negative Presumptive negative [facility] Antigen for pneumococcal for pneumococcal [facility] pneumonia - see comment pneumonia - see CENTER comment, Presumptive negative for pneumococcal meningitis - see comment Specimen Urine Narrative Performed At Presumptive negative for pneumococcal [facility] [place] pneumonia, suggesting no current or recent pneumococcal infection. Infection due to S. pneumoniae cannot be ruled out since the antigen present in the sample may be below the detection limit of the test. Performing Organization Address City/[facility] Centercode Phone Number [address] [address] [place] Legionella antigen, urine (03/20/2019 2:23 AM WET MILLING WHEEL OPERATOR) Legionella Urine Antigen Negative - see [facility] commentComment: Negative [facility] for L. pneumophila serogroup 1 antigen, suggesting no recent or current infection with this serogroup. Legionellosis cannot be ruled out since other serogroups and species may cause disease. Specimen Urine Performing Organization Address City/[facility]/Zipcode Phone Number [address] [address] CENTER Protein, random urine (03/20/2019 2:22 AM WET MILLING WHEEL OPERATOR) Protein, Urine 72 (H) 0 - 14 mg/dL [facility] [place] Specimen Urine Narrative Performed At Curriculum Assistant Principal ID - BS [facility] [place] Performing Organization Address City/[facility]/Zipcode Phone Number [address] [phone] [place] Osmolality, urine (03/20/2019 2:22 AM WET MILLING WHEEL OPERATOR) Osmolality, Ur 540 40-1,400 mOsm/kg [facility] Specimen Urine Performing Organization Address [facility] Centercode Phone Number [address] [address] [place] Chloride, random urine (03/20/2019 2:22 AM WET MILLING WHEEL OPERATOR) ChlorideUr <20 meq/L [facility] [place] Specimen Urine Narrative Performed At Reference Range: No Normals [facility] Curriculum Assistant Principal ID - BS Performing Organization Address City/[facility] Centercode Phone Number [address] [address] [place] ECHOCARDIOGRAM REPORT - SCAN (01/23/2019 9:21 PM WET MILLING WHEEL OPERATOR) Narrative Performed At This result has an attachment that is no t available. MRA head without IV contrast (01/23/2019 8:01 AM WET MILLING WHEEL OPERATOR) Specimen Narrative Performed At FINAL REPORT [facility] MRV Head CLINICAL HISTORY:Stroke, follow up concern for transverse sinus thrombosis, need MRV please TECHNIQUE: MRV of the head utilizing 2-D joeh-pm-gwevmr technique. COMPARISON: CTA 01/22/2019 FINDINGS: There is [...] External Ris In - 01/23/2019 8:29 AM WET MILLING WHEEL OPERATOR FINAL REPORT MRV Head CLINICAL HISTORY:Stroke, follow up concern for transverse sinus thrombosis, need MRV please TECHNIQUE: MRV of the head utilizing 2-D kuvx-dp-oxorkl technique. COMPARISON: CTA 01/22/2019 FINDINGS: There is [...] 8:26:36 Performing Organization Address City/State/Zipcode Phone Number [facility] MR brain without IV contrast (01/22/2019 6:11 PM WET MILLING WHEEL OPERATOR) Specimen Narrative Performed At FINAL REPORT [facility] MR, BRAIN, WITHOUT CONTRAST INDICATION: Stroke, follow [...] External Ris In - 01/22/2019 7:28 PM WET MILLING WHEEL OPERATOR FINAL REPORT MR, BRAIN, WITHOUT CONTRAST INDICATION: [...] 9:25:11 Performing Organization Address City/State/Zipcode Phone Number [employer] CTA carotid (01/22/2019 4:59 PM WET MILLING WHEEL OPERATOR) Specimen Narrative Performed At FINAL REPORT [employer] CLINICAL HISTORY: Neuro deficit, acute, stroke suspected [...] External Ris In - 01/24/2019 2:56 PM WET MILLING WHEEL OPERATOR FINAL REPORT CLINICAL HISTORY: Neuro deficit, acute, [...] 9:16:06 Performing Organization Address City/State/Zipcode Phone Number [facility] CTA brain (01/22/2019 4:59 PM WET MILLING WHEEL OPERATOR) Specimen Narrative Performed At FINAL REPORT [facility] CLINICAL HISTORY: Neuro deficit, acute, stroke suspected [...] External Ris In - 01/22/2019 7:18 PM WET MILLING WHEEL OPERATOR FINAL REPORT CLINICAL HISTORY: Neuro deficit, acute, [...] 9:16:06 Performing Organization Address City/State/Zipcode Phone Number [employer] Transthoracic 2D echo w/ doppler (cw/pw/color) (01/22/2019 1:16 PM WET MILLING WHEEL OPERATOR) Ejection Fraction [facility] E[facility] HEAR TLAB [facility] Specimen Narrative Performed At Transthoracic Echocardiography Report (T TE) [facility] ECHO HEARTLAB MKCKESSON [facility] Demographics Patient JOHN Valdes Date of Study01/22/2019 Gender Male Visit [id number] Race Unknown [id number] Number Date of 1955 ReferringCHRISTOPHER GOODRICH Physician Age 63 year(s) SonographerJohnny [facility] Fredi Eller, NB, RDCS,RVT,RDMS Bias Cutting Machine Operator Aliya YeeInterpreting Lyn Mike MD Ciolacely Physician Procedure Type of Study TTE procedure:2DECHO [...] of 1.82 cm2. 4. Mild mitral regurgitation. 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 5. Aortic [...] severity assessment is unreliable . Aortic Valve Jjop-hb-hbtsxzwm AoV cusp calcification. Mi ld aortic stenosis. Ao V area at rest by continuity equation is in the ra nge of 1.82 cm2. Preserved stroke volume . Mitral Valve Mild MV leaflet thickening. Se giles mitral annular and subvalvular ca lcification. Mi ld mitral regurgitation. Mi mj-xs-mgvsuaui mitral stenosis secondary to MAC. MV area [...] External Ris In - 01/23/2019 10:36 AM WET MILLING WHEEL OPERATOR Transthoracic Echocardiography Report (TTE) Demographics Patient Name JOHN VERGARA Date of St udy 01/22/2019 Gender Male Visit Number [id number] Race Unknown [place] [address] Number Date of 1955 Referring BRITTON GOODRICH Physician Age 63 year(s) Sonographe gracie Eller, NB, RDCS,RVT,RDMS Bias Cutting Machine Operator MD Isaac Espinosa Physician Procedure Type of [...] severity assessment is unreliable . Aortic Valve Pxjl-sr-bcjwxpag AoV cusp calcification. Mild aortic sten osis. AoV area at rest by continuity equation is in the range of 1.82 cm 2. Preserved stroke volume. Mitral Valve Mild MV leaflet thickening. Severe mitral an nular and subvalvular calcification. Mild mitral regu rgitation. Hbae-wj-embyxahe mitral stenosis secondary to MAC. MV area [...] T CI: 2.42 l/min/m^2 Performing Organization Address City/State/Zipcode Phone Number [facility] ECHO HEARTLAB MKCKESSON [facility] RPR (01/21/2019 11:26 PM WET MILLING WHEEL OPERATOR) RPR Nonreactive Nonreactive [facility] [place] Specimen Blood Performing Organization Address City/State/Zipcode Phone Number [facility] [address] [place] [address] CENTER after 08/20/2018 Insurance Payer Benefit Plan / Group Subscriber ID Type Phone A nena DAIGLE xxxxxxxxxxx Advance Directives For more information, please contact:[address] [phone] Code Status Date Activated Date Inactivated Comments Full Code 05/30/2019 8:01 PM 06/09/2019 10:53 PM This code status was determined by: Patient Full Code 03/19/2019 11:39 PM 04/25/2019 7:15 PM This code status was determined by: Patient Full Code 01/21/2019 8:37 PM 01/24/2019 4:42 PM This code status was determined by: Patient
--- OUTSIDE RECORDS SUMMARY | 2019-08-21 19:25 | XMS REPORT | Continuity of Care Document ---
:1955 Author Organization [facility] t Address [address] [place]. [address] [place] [id number] Care Team Providers Name Role Phone Pcp Primary Care Physician Unavailable Thanh Edmond MD Attending Clinician Doctor Unassigned, Name Attending Clinician Unavailable Mukesh Palafox MD Attending Clinician Delaney Horne MD Attending Clinician Ammy Dominguez MD Attending Clinician Leonor Drake MD Attending Clinician Mukesh PALAFOX Attending Clinician Unavailable Essie CAMERON Attending Clinician Nia Lambert Attending Clinician Darryl CAMERON Attending Clinician EDILMA ZAMUDIO Attending Clinician Unavailable Edilma Zamudio MD Attending Clinician Evelyn Lora MD Attending Clinician Laya Tabares MD, Devonte Attending Clinician [phone] Irineo Aj MD Attending Clinician Hal CAMERON Attending Clinician Sangita Breaux MD Attending Clinician Anh CAMERON Attending Clinician Bob Andrews MD Attending Clinician Checo Holguin MD Attending Clinician Miranda Chavez CRNA Attending Clinician [phone] Kadeem Peña MD Attending Clinician Fara CAMERON Attending Clinician Ricardo Hamilton MD Attending Clinician Hilario CAMERON Attending Clinician FARA Attending Clinician Unavailable DELANEY HORNE Admitting Clinician Unavailable EDILMA ZAMUDIO Admitting Clinician Unavailable HILARIO Admitting Clinician Unavailable Payers Payer Name Policy Policy Number Effective Expiration Source Type Date Date AMBETTERAMBETTER xxxxxxxxxxx [facility] Problems Condition Condition Condition Status Onset Resolution Last Treating Co mments Source Name Details Category Date Date Treatment Clinician Date Volume Volume Disease Active 2020-[address] [facility] overload overload 4-03 [facility]: Medical 00 [place] Delirium Delirium Disease Active 2020- [facility] Medical 00 [place] Dysphagia Dysphagia Disease Active 2020-[address] [facility] 2-22 [facility] - 00:00: Medical 00 [place] Severe Severe Disease Active 2020-[address] [facility] [address] protein-ca protein-ca 2-22 [facility] - mk mk 00:00: Medical malnutriti malnutriti 00 Ce nter on on COPD COPD Disease Active 2020-[address] [facility] (chronic (chronic 2-22 [facility] - obstructiv obstructiv 00:00: Me dical e e 00 Center pulmonary pulmonary disease) disease) CKD CKD Disease Active 2020-[address] [facility] (chronic (chronic 2-22 [facility] - kidney kidney 00:00: Medical disease) disease) 00 Center stage 2, stage 2, GFR 60-89 GFR 60-89 ml/min ml/min Atelectasi Atelectasi Disease Active 2020-[address] [facility] s 2-07 [facility] - 00:00: Medical 00 Center Acute on Acute on Disease Active 2020-0 [facility] chronic chronic 1-24 [facility] - diastolic diastolic 00:00: Medi saleem CHF CHF 00 Center (congestiv (congestiv e heart e heart failure), failure), NYHA class NYHA class 4 4 Atrial Atrial Disease Active [facility] fibrillati fibrillati -24 [facility] - on on 00:00: Medical 00 Center Pneumonia Pneumonia Disease Active [facility] -24 [facility] - 00:00: Medical 00 [place] Hydropneum Hydropneum Disease Active [facility] othorax othorax 24 [facility] - 00:00: Medical 00 Center Acute Acute Disease Active [facility] metabolic metabolic - [facility] - encephalop encephalop 00:00: Me dical athy athy 00 Center Acute Acute Disease Active [facility] respirator respirator 03-19 [facility] - y failure y failure 00:00: Medi saleem with with 00 Center hypoxia hypoxia and and hypercapni hypercapni a a Hypovolemi Hypovolemi Disease Active [facility] c shock c shock [facility] History of Past Illness Condition Condition Condition Status Onset Resolution Last Treating Co mments Source Name Details Category Date Date Treatment Clinician Date History of History of Disease Resolve 2019-05-30 2019-05-[address] [facility] alcohol alcohol d 2- 00:00:00 21:53:29 [facility] - use use 00:00: Medical disorder disorder 00 Center Stroke Stroke Disease Resolve 2018-022019-05-30 2019-05-[address] [facility] (cerebrum) (cerebrum) d - 00:00:00 21:53:21 [facility] - 00:[facility]: Medical 00 Center Allergies, Adverse Reactions, Alerts This patient has no known allergies or adverse reactions. Family History Family Member Diagnosis Comments Start Date Stop Date Source Natural father Hypertension [facility] Natural mother Diabetes [facility] Social History Social Habit Start Date Stop Date Quantity Comments Source History of tobacco 1967-01-[address] [facility] - use 00:00:00 day smoker Medical Center History [facility] - Alcohol Binge Medical [address] Sex Assigned At [facility] Center Cigarettes smoked 2019-04-14 2019-04-[address] [facility] - current (pack per 00:00:00 00:00:00 Medical Center day) - Reported Cigarette 2019-04-14 2019-04-[address] [facility] - pack-years 00:00:00 00:00:00 [facility] Alcohol Comment 2019-03-20 2019-03-20 4 cans of beer [facility] - 00:[facility]:00 00:00:00 every evening [facility] [address] History [facility] 2019-01-21 2019-01-[address] [facility] - Alcohol Frequency 00:00:00 00:00:00 Medical Center History [facility] 2019-01-21 2019-01-[address] [facility] - Alcohol Std Drinks 00:00:00 00:00:00 Medica l [place] Tobacco Comment 2019-01-21 2019-01-[address] [facility] - 00:00:00 00:00:00 ready to quit Medical [address] smoking Smoking Status Start Date Stop Date Source Current every day smoker 2019-04-14 00:00:00 [facility] Medications Ordered Filled Start Stop Current Ordering Indication Dosage Frequency Signature Comments Components Source Medication Medication Date Date Medication? Clinician (SIG) Name Name gabapentin 2019- No 300mg [id number] Take [address] (NEURONTIN) 4-13 04-13 [id number] mg by [facility] - 300 MG 17:03: 00:00 3D mouth 3 Medical capsule 56 :00 (three) Center times daily. magnesium 2019- No 400mg QD Take [address] oxide - 04-13 mg by [facility] - (MAG-OX) 17:03: 00:00 mouth Medical 400 mg 56 :00 daily. [place] (241.3 mg magnesium) tablet metOLazone 2019- No 5mg Q.5W Take [address] (ZAROXOLYN) - 04-13 by mouth Melvina es - 5 MG tablet 17:03: 00:00 twice a Me dical 55 :00 week On [place] Sunday and Sunday . QUEtiapine 2019- No 12.5mg QD Take 12.[address] (SEROQUEL) 4-13 04-13 mg by [facility] - 25 MG 17:03: 00:00 mouth Medical tablet 55 :00 nightly. [place] dilTIAZem 2020- No 120mg QD Take [address] (DILACOR 4-13 04-13 mg by [facility] - XR) 120 MG 17:03: 00:00 mouth Medic al 24 hr 55 :00 daily. Center capsule lactulose Yes 20g 30 mLs ([address] (CHRONULAC) 4-13 g total) [facility] - 20 gram/30 00:00: by G-tube Me dical mL solution 00 route Center daily as needed (constipat ion). atorvastati 2020- Yes 40mg QD Take 0.[address] n (LIPITOR) 06-08- tablets [facility] - 80 MG 00:00: 23:59 (40 mg Medical tablet 00 :00 total) by Center mouth nightly. potassium 2020- Yes 20meq QD Take [address] chloride SA 06-08 tablet (20 L ukes - (K-DUR,KLOR 00:00: 23:59 mEq total) Medical -CON) 20 00 :00 by mouth Center MEQ tablet daily. thiamine 2020- Yes 100mg QD Take 1 [facility] 100 MG 06-08 tablet [facility] - tablet 00:00: 23:59 (100 mg Medical 00 :00 total) by Center mouth daily. amiodarone 2019- No 400mg QD Take [address] (PACERONE) 2- 05-29 tablet [facility] - 400 MG 00:00: 23:59 (400 mg Medical tablet 00 :00 total) by Center mouth daily for 90 days. aspirin 81 2019- No 81mg QD Take [address] MG chewable - 05-29 tablet (81 L ukes - tablet 00:00: 23:59 mg total) Medic al 00 :00 by mouth Center daily for 90 days. pantoprazol 2019- No 40mg QD Take [address] e 2- 04-06 tablet (40 [facility] - (PROTONIX) 00:00: 00:00 mg total) M edical 40 MG 00 :00 by mouth Center tablet daily for 90 days. dilTIAZem 2019- No 120mg QD Take [address] (CARDIZEM) 2-28 02-28 mg by [facility] - 120 MG 14:21: 00:00 mouth Medical tablet 16 :00 daily. Center metOLazone 2019- No high blood 5mg Q.5W Take [address] (ZAROXOLYN) 2-28 02-28 pressure by mouth [facility] - 5 MG tablet 14:21: 00:00 twice a Me dical 16 :00 week. Center magnesium 2019- No 400mg QD Take [address] oxide 04-25 mg by [facility] - (MAG-OX) 14:21: 00:00 mouth Medical 400 mg 16 :00 daily. Center (241.3 mg magnesium) tablet gabapentin No 300mg [id number] Take [address] (NEURONTIN) 04-25 [id number] mg by [facility] - 300 MG 14:21: 00:00 3D mouth 3 Medical capsule 16 :00 (three) Center times daily. metoprolol 2019- No high blood 100mg Q.5D Take [address] (TOPROL-XL) 04-25 pressure mg by E[facility]ie kes - 100 MG 24 14:21: 00:00 mouth 2 Medi saleem hr tablet 16 :00 (two) Center times daily. apixaban 2019- No 5mg Q.5D Take [address] (ELIQUIS) 5 04-25 tablet (5 [facility]ie kes - mg Tab 00:00: 23:59 mg total) Medic al tablet 00 :00 by mouth 2 Center (two) times daily for 90 days. metoprolol 2019- No 25mg Q.5D Take [address] tartrate 04-25 tablet (25 [facility] - (LOPRESSOR) 00:00: 23:59 mg total) Medical 25 MG 00 :00 by mouth 2 Center tablet (two) times daily for 90 days. midodrine 2019- No 5mg Q.[id number] Take [address] (PROAMATINE 04-25 [id number] tablet (5 [facility] - ) 5 MG 00:00: 23:59 3D mg total) Medic al tablet 00 :00 by mouth 3 Center (three) times daily for 90 days. QUEtiapine 2019- No 25mg QD Take [address] (SEROQUEL) 04-25 tablet (25 E[facility]ie kes - 25 MG 00:00: 23:59 mg total) Medica l tablet 00 :00 by mouth Center nightly for 30 days. fluconazole 2019- No 200mg QD Take [address] (DIFLUCAN) 04-25 03-03 tablet [facility] - 200 MG 00:00: 23:59 (200 mg Medical tablet 00 :00 total) by Center mouth daily for 4 days. potassium 2018-02- No 40meq QD Take [address] chloride SA 03-27 04-13 tablets [facility] - (K-DUR,KLOR 00:00: 00:00 (40 mEq Me dical -CON) 20 00 :00 total) by Center MEQ tablet mouth daily. thiamine 2018-02- No 100mg QD Take 1 [facility] 100 MG 03-27 04-06 tablet [facility] - tablet 00:00: 00:00 (100 mg Medical 00 :00 total) by Center mouth daily. nicotine 2018-02- 1{patch QD Place [address] (NICODERM 03-27 } patch onto Melvina es - CQ) 14 00:00: 23:59 the skin Medica l mg/24 hr 00 :00 daily for Center patch 30 days. atorvastati 2018-02- No 80mg QD Take [address] n (LIPITOR) 03-26- tablet (80 L ukes - 80 MG 00:00: 00:00 mg total) Medica l tablet 00 :00 by mouth Center nightly. apixaban 2018-02- No 5mg Q.5D Take [address] (ELIQUIS) 5 03-26 tablet (5 [facility]ie kes - mg Tab 00:00: 23:59 mg total) Medic al tablet 00 :00 by mouth 2 Center (two) times daily for 30 days. folic acid 2018-02 Yes 1mg QD Take [address] (FOLVITE) 1 03-23 by mouth [facility] - MG tablet 20:21: daily. Medica l 24 Center furosemide 2018-02 Yes 40mg Q.5D Take [address] (LASIX) 40 03-23 by mouth 2 Melvina es - MG tablet 20:21: (two) Medical 23 times Center daily. Vital Signs Vital Name Observation Time Observation Value Comments Source Systolic blood 2019-06-09 20:05:00 134 mm[Hg] [facility] Diastolic blood 2019-06-09 20:05:00 89 mm[Hg] [facility] Heart rate 2019-06-09 20:05:00 90 /min [facility] Body temperature 2019-06-09 20:00:00 36.61 Stephanie [facility] Respiratory rate 2019-06-09 20:00:00 22 /min [facility] Oxygen saturation in 2019-06-09 20:00:00 98 /min [facility] Arterial blood by Medical Ce nter Pulse oximetry Body weight Measured 2019-06-09 06:00:00 71.1 kg [facility] BMI 2019-06-09 06:00:00 23.15 kg/m2 [facility] Body height 2019-06-02 06:00:00 175.3 cm [facility] Procedures Procedure Date / Time Performing Clinician Source Performed RHYTHM STRIP - SCAN 2019-07-02 12:50:08 Provider, [facility] REPORT OF PROCEDURE - 2019-07-02 12:50:05 Provider, [facility] RHYTHM STRIP - SCAN 2019-06-12 14:00:10 Provider, [facility] RHYTHM STRIP - SCAN 2019-06-12 14:00:08 Provider, [facility] POCT-GLUCOSE METER 2019-06-09 18:23:00 France Drake [facility] POCT-GLUCOSE METER 2019-06-09 12:40:00 France Drake [facility] COMPREHENSIVE METABOLIC 2019-06-09 11:30:00 France Drake [facility] POCT-GLUCOSE METER 2019-06-09 05:42:00 France Drake [facility] POCT-GLUCOSE METER 2019-06-08 23:32:00 France Drake [facility] POCT-GLUCOSE METER 2019-06-08 18:13:00 France Drake [facility] POCT-GLUCOSE METER 2019-06-08 05:26:00 France Drake [facility] POCT-GLUCOSE METER 2019-06-07 23:19:00 Vidal France Galvez [facility] POCT-GLUCOSE METER 2019-06-07 18:41:00 Vidal, France [facility] POCT-GLUCOSE METER 2019-06-07 17:14:00 Vidal, France Galvez [facility] POCT-GLUCOSE METER 2019-06-07 14:17:00 Vidal, France Galvez [facility] POCT-GLUCOSE METER 2019-06-07 06:16:00 Vidal, France Galvez [facility] POCT-GLUCOSE METER 2019-06-06 23:38:00 Vidal, France [facility] POCT-GLUCOSE METER 2019-06-06 17:48:00 Vidal, France [facility] POCT-GLUCOSE METER 2019-06-06 12:00:00 Vidal France [facility] POCT-GLUCOSE METER 2019-06-06 05:44:00 Vidal France Galvez [facility] COMPREHENSIVE METABOLIC 2019-06-06 03:50:00 Vidal France Galvez [facility] POCT-GLUCOSE METER 2019-06-05 23:58:00 Vidal, France [facility] POCT-GLUCOSE METER 2019-06-05 16:45:00 Vidal France [facility] POTASSIUM 2019-06-05 16:31:00 Vidal France Galvez [facility] POCT-GLUCOSE METER 2019-06-05 12:17:00 Vidal France Galvez [facility] BASIC METABOLIC PANEL (7) 2019-06-05 06:01:00 France Drake [facility] POCT-GLUCOSE METER 2019-06-05 06:01:00 Vidal France [facility] POCT-GLUCOSE METER 2019-06-05 00:03:00 Vidal [facility] POCT-GLUCOSE METER 2019-06-04 17:43:00 Vidal [facility] XR ESOPH SWALLOW FUNCTION 2019-06-04 14:45:00 Serafin Palafox [facility] POCT-GLUCOSE METER 2019-06-04 11:44:00 Vidal [facility] POCT-GLUCOSE METER 2019-06-04 06:06:00 Vidal [facility] COMPREHENSIVE METABOLIC 2019-06-04 05:15:00 Alberto, Lawsondaniel Ammy [facility] CBC W/PLT COUNT & AUTO 2019-06-04 05:15:00 Alberto, Ole Welleri C [facility] US ABDOMEN LIMITED 2019-06-04 02:10:00 Vidal [facility] POCT-GLUCOSE METER 2019-06-03 23:38:00 Vidal [facility] POCT-GLUCOSE METER 2019-06-03 17:47:00 Vidal [facility] AMMONIA 2019-06-03 14:56:00 Vidal [facility] POCT-GLUCOSE METER 2019-06-03 12:09:00 Vidal [facility] POCT-GLUCOSE METER 2019-06-03 06:21:00 Serafin Palafox [facility] COMPREHENSIVE METABOLIC 2019-06-03 05:25:00 AlbertoOle savage [facility] MAGNESIUM 2019-06-03 05:25:00 Serafin Palafox [facility] CBC W/PLT COUNT & AUTO 2019-06-03 05:25:00 Alberto, Lawsondaniel Ammy [facility] POCT-GLUCOSE METER 2019-06-03 00:10:00 Serafin Palafox [facility] POCT-GLUCOSE METER 2019-06-02 17:53:00 Serafin Palafox [facility] BASIC METABOLIC PANEL (7) 2019-06-02 15:03:00 Serafin Palafox [facility] POCT-GLUCOSE METER 2019-06-02 12:29:00 Serafin Palafox [facility] BLOOD GAS, ARTERIAL 2019-06-02 08:15:00 Serafin Palafox [facility] POCT-GLUCOSE METER 2019-06-02 05:38:00 Serafin Palafox [facility] VANCOMYCIN LEVEL, TROUGH 2019-06-02 01:24:00 Val Mohr [facility] COMPREHENSIVE METABOLIC 2019-06-02 01:24:00 [facility] 2019-06-02 01:24:[address] [facility] CBC W/PLT COUNT & AUTO 2019-06-02 01:24:00 Alberto, Ole Boyd [facility] POCT-GLUCOSE METER 2019-06-01 23:14:00 Alberto, [facility] ECHOCARDIOGRAM REPORT - SCAN 2019-06-01 21:20:04 ProviderUday lt [facility] POCT-GLUCOSE METER 2019-06-01 17:49:00 Alberto, [facility] 2D ECHO W/ DOPPLER 2019-06-01 14:50:21 Alberto, [facility] [place]/PW/COLOR) [facility] POCT-GLUCOSE METER 2019-06-01 11:54:00 Alberto, [facility] MRSA SCREEN 2019-06-01 10:47:00 Val Mohr [facility] BASIC METABOLIC PANEL (7) 2019-06-01 10:46:00 Alberto, [facility] MAGNESIUM 2019-06-01 10:46:00 [facility] 2019-06-01 10:46:00 Alberto, [facility] CBC W/PLT COUNT & AUTO 2019-06-01 10:46:00 Alberto, [facility] POCT-GLUCOSE METER 2019-06-01 05:37:00 Alberto, [facility] POCT-GLUCOSE METER 2019-05-31 23:21:00 Alberto, [facility] POCT-GLUCOSE METER 2019-05-31 17:44:00 Alberto, [facility] POCT-GLUCOSE METER 2019-05-31 11:21:00 Alberto, [facility] PROTHROMBIN TIME/INR 2019-05-31 10:31:00 Manolo [facility] HEPATITIS PANEL, ACUTE 2019-05-31 08:24:00 Manolo [facility] VANCOMYCIN LEVEL, RANDOM 2019-05-31 08:23:00 John Mendenhall [facility] COMPREHENSIVE METABOLIC 2019-05-31 08:23:00 Manolo [facility] PANEL [facility] B-TYPE NATRIURETIC FACTOR 2019-05-31 08:23:00 Manolo [facility] (BNP) [facility] CBC W/PLT COUNT & AUTO 2019-05-31 08:23:00 Manolo [facility] DIFFERENTIAL [facility] BLOOD CULTURE 2019-05-31 08:22:00 Manolo [facility] ECG 12-LEAD 2019-05-31 07:21:40 Manolo [facility] POCT-GLUCOSE METER 2019-05-31 05:54:00 Liza Horne [facility] SODIUM, RANDOM URINE 2019-05-31 03:26:00 Manolo [facility] UREA NITROGEN, RANDOM URINE 2019-05-31 03:26:00 Manolo [facility] CREATININE, RANDOM URINE 2019-05-31 03:26:00 Manolo [facility] BLOOD CULTURE 2019-05-31 00:25:00 French [facility] POCT-GLUCOSE METER 2019-05-30 23:51:00 Liza Horne [facility] XR CHEST 1 VIEW 2019-05-30 21:03:00 French, [facility] PORTABLE/BEDSIDE [facility] COMPREHENSIVE METABOLIC 2019-05-30 20:55:00 French [facility] PANEL [facility] PROTHROMBIN TIME/INR 2019-05-30 20:55:00 French [facility] CBC W/PLT COUNT & AUTO 2019-05-30 20:55:00 French [facility] DIFFERENTIAL [facility] ECG 12-LEAD 2019-05-30 19:25:56 Unknown, H[facility] Doctor [facility] XR CHEST 2 VIEWS 2019-05-08 12:14:00 Adelaide Lambert [facility] RHYTHM STRIP - SCAN 2019-05-01 17:29:28 Provider, [facility] RHYTHM STRIP - SCAN 2019-04-28 15:01:14 Provider, [facility] RHYTHM STRIP - SCAN 2019-04-28 15:01:12 Provider, [facility] XR CHEST 1 VIEW 2019-04-25 06:45:00 Zhao Moreno [facility] PORTABLE/BEDSIDE [facility] BASIC METABOLIC PANEL (7) 2019-04-25 04:52:00 Gustavo George [facility] MAGNESIUM 2019-04-25 04:52:00 Gustavo George [facility] PHOSPHORUS 2019-04-25 04:52:00 Gustavo George [facility] CBC W/PLT COUNT & AUTO 2019-04-25 04:52:00 Gustavo George [facility] XR CHEST 1 VIEW 2019-04-24 06:56:00 Josh, [facility] PORTABLE/BEDSIDE Medical [place] BASIC METABOLIC PANEL (7) 2019-04-24 04:11:00 Gustavo George [facility] MAGNESIUM 2019-04-24 04:11:00 Gustavo George [facility] PHOSPHORUS 2019-04-24 04:11:00 Gustavo George [facility] CBC W/PLT COUNT & AUTO 2019-04-24 04:11:00 Gustavo George [facility] XR CHEST 1 VIEW 2019-04-23 13:57:00 [facility] PORTABLE/BEDSIDE [facility] XR CHEST 1 VIEW 2019-04-23 06:31:00 Josh [facility] BASIC METABOLIC PANEL (7) 2019-04-23 03:53:00 Gustavo George [facility] MAGNESIUM 2019-04-23 03:53:00 Gustavo George [facility] PHOSPHORUS 2019-04-23 03:53:00 Gustavo George [facility] PREALBUMIN 2019-04-23 03:53:00 [facility] W/PLT COUNT & AUTO 2019-04-23 03:53:00 Gustavo George [facility] XR ESOPH SWALLOW FUNCTION 2019-04-22 14:30:00 Yonathan Mccracken [facility] - W/CINE VIDEO [facility] XR CHEST 1 VIEW 2019-04-22 05:49:00 Josh [facility] BASIC METABOLIC PANEL (7) 2019-04-22 04:02:00 Gustavo George [facility] MAGNESIUM 2019-04-22 04:02:00 Gustavo George [facility] PHOSPHORUS 2019-04-22 04:02:00 Gustavo George [facility] CBC W/PLT COUNT & AUTO 2019-04-22 03:23:00 Gustavo George [facility] BASIC METABOLIC PANEL (7) 2019-04-21 12:23:[address] [facility] MAGNESIUM 2019-04-21 12:23:[address] [facility] XR CHEST 1 VIEW 2019-04-21 03:59:00 JoshZhao [facility] PORTABLE/BEDSIDE Medical [place] BASIC METABOLIC PANEL (7) 2019-04-21 03:43:00 Gustavo George Christie [facility] MAGNESIUM 2019-04-21 03:43:00 Gustavo George Christie [facility] PHOSPHORUS 2019-04-21 03:43:00 Gustavo George Christie [facility] CBC W/PLT COUNT & AUTO 2019-04-21 03:42:00 Gustavo George Christie VEN[facility] BASIC METABOLIC PANEL (7) 2019-04-20 15:19:00 Zhao Moreno [facility] PHOSPHORUS 2019-04-20 15:19:00 [facility] MAGNESIUM 2019-04-20 15:19:00 Sheldon [facility] CBC W/PLT COUNT & AUTO 2019-04-20 15:19:00 Zhao Moreno [facility] POCT-GLUCOSE METER 2019-04-20 12:17:00 Fernando Andrews [facility] XR CHEST 1 VIEW 2019-04-20 05:50:00 Zhao Moreno [facility] PORTABLE/BEDSIDE [facility] BASIC METABOLIC PANEL (7) 2019-04-20 03:21:00 Zhao Moreno [facility] PHOSPHORUS 2019-04-20 03:21:00 [facility] 2019-04-20 03:21:00 Sheldon [facility] CBC W/PLT COUNT & AUTO 2019-04-20 03:21:00 [facility] POCT-GLUCOSE METER 2019-04-20 00:07:00 Fernando Andrews [facility] TRANSFUSION SERVICE REPORT - 2019-04-19 18:02:04 Provider, Uday macias [facility] BASIC METABOLIC PANEL (7) 2019-04-19 17:34:00 Josh, Zhao [facility] PHOSPHORUS 2019-04-19 17:34:00 [facility] MAGNESIUM 2019-04-19 17:34:00 Sheldon [facility] CBC W/PLT COUNT & AUTO 2019-04-19 17:34:00 [facility] XR CHEST 1 VIEW 2019-04-19 05:48:00 [facility] PORTABLE/BEDSIDE [facility] BASIC METABOLIC PANEL (7) 2019-04-19 03:26:00 Zhao Moreno [facility] PHOSPHORUS 2019-04-19 03:26:00 [facility] MAGNESIUM 2019-04-19 03:26[facility]00 [facility] W[facility]T [facility] & AUTO 2019-04-19 03:26:00 [facility] POCT-GLUCOSE METER 2019-04-19 00:23:00 Fernando Andrews [facility] PREPARE LEUKO-REDUCED RBC 2019-04-18 23:54:[address] [facility] POCT-GLUCOSE METER 2019-04-18 18:27:00 Fernando Andrews [facility] TRANSFUSION SERVICE REPORT - 2019-04-18 18:02:42 Provider, Uday macias [facility] [facility] BASIC METABOLIC PANEL (7) 2019-04-18 18:02:00 Zhao Moreno [facility] PHOSPHORUS 2019-04-18 18:02:00 [facility] MAGNESIUM 2019-04-18 18:02:00 [facility] W[facility]PLT COUNT & AUTO 2019-04-18 18:02:00 Josh Zhao [facility] POCT-GLUCOSE METER 2019-04-18 11:46:00 Fernando Andrews [facility] POCT-GLUCOSE METER 2019-04-18 05:54:00 Fernando Andrews [facility] XR CHEST 1 VIEW 2019-04-18 05:36:[address] [facility] PORTABLE/BEDSIDE Medical Center BLOOD GAS, ARTERIAL 2019-04-18 02:37:00 Josh [facility] BASIC METABOLIC PANEL (7) 2019-04-18 02:36:00 [facility] 2019-04-18 02:36:00 Josh [facility] MAGNESIUM 2019-04-18 02:36:00 [facility] CBC W/PLT COUNT & AUTO 2019-04-18 02:36:00 Josh [facility] POCT-GLUCOSE METER 2019-04-18 00:19:00 Fernando Andrews [facility] POCT-GLUCOSE METER 2019-04-17 18:30:00 Fernando Andrews [facility] TRANSFUSION SERVICE REPORT - 2019-04-17 17:52:04 Uday Wilkes lt [facility] BLOOD GAS, ARTERIAL 2019-04-17 16:17:00 Josh [facility] BASIC METABOLIC PANEL (7) 2019-04-17 16:16:00 Josh Zhao [facility] PHOSPHORUS 2019-04-17 16:16:00 Josh[facility] MAGNESIUM 2019-04-17 16:16:00 Sheldon [facility] CBC W/PLT COUNT & AUTO 2019-04-17 16:16:00 [facility] POCT-GLUCOSE METER 2019-04-17 13:14:00 Fernando Andrews [facility] TRANSFUSE LEUKO-REDUCED RED 2019-04-17 11:41:31 Yonathan Mccracken [facility] BLOOD CELLS [facility] XR CHEST 1 VIEW 2019-04-17 06:07:00 Josh [facility]/BEDSIDE [facility] POCT-GLUCOSE METER 2019-04-17 05:32:00 Fernando Andrews [facility] BLOOD GAS, ARTERIAL 2019-04-17 03:30:00 [facility] BASIC METABOLIC PANEL (7) 2019-04-17 03:30:00 Josh [facility] PHOSPHORUS 2019-04-17 03:30:00 [facility] PROTHROMBIN TIME/INR 2019-04-17 03:30:00 [facility] APTT 2019-04-17 03:30:00 Josh [facility] MAGNESIUM 2019-04-17 03:30:[address] [facility] CBC W/PLT COUNT & AUTO 2019-04-17 03:30:00 [facility] HEMOGLOBIN AND HEMATOCRIT 2019-04-17 00:27:00 Celestina Estrada [facility] POCT-GLUCOSE METER 2019-04-17 00:10:00 Fernando Andrews [facility] PREPARE CRYOPRECIPITATE 2019-04-16 23:54:00 Sean [facility] PREPARE PLASMA 2019-04-16 23:54:00 Sean [facility] PREPARE LEUKO-REDUCED RBC 2019-04-16 23:54:[address] [facility] PERIPHERAL VASCULAR REPORT - 2019-04-16 21:23:26 Uday Wilkes lt [facility] POCT-GLUCOSE METER 2019-04-16 18:48:00 Fernando Andrews [facility] TRANSFUSION SERVICE REPORT - 2019-04-16 17:52:48 Uday Wilkes lt [facility] BLOOD GAS, ARTERIAL 2019-04-16 16:02:00 [facility] PHOSPHORUS 2019-04-16 16:02:00 [facility] BASIC METABOLIC PANEL (7) 2019-04-16 16:02:[address] [facility] CBC W/PLT COUNT & AUTO 2019-04-16 16:02:00 [facility] POCT-GLUCOSE METER 2019-04-16 13:24:00 Fernando Andrews [facility] HEMOGLOBIN AND HEMATOCRIT 2019-04-16 09:09:00 Sean [facility] XR CHEST 1 VIEW 2019-04-16 03:46:00 [facility] PORTABLE/BEDSIDE Medical Center MAGNESIUM 2019-04-16 03:28:00 Antonio Grace [facility] BASIC METABOLIC PANEL (7) 2019-04-16 03:28:00 [facility] PHOSPHORUS 2019-04-16 03:28:00 [facility] PROTHROMBIN TIME/INR 2019-04-16 03:28:00 [facility] APTT 2019-04-16 03:28:00 [facility] CALCIUM, IONIZED 2019-04-16 03:28:[address] [facility] CBC W/PLT COUNT & AUTO 2019-04-16 03:28:00 [facility] BLOOD GAS, ARTERIAL 2019-04-16 03:24:00 [facility] TRANSFUSE LEUKO-REDUCED RED 2019-04-16 01:54:16 Sean [facility] BLOOD CELLS [facility] POCT-GLUCOSE METER 2019-04-15 23:14:00 Fernando Andrews [facility] CBC W/PLT COUNT & AUTO 2019-04-15 22:51:00 Ceelstina Estrada [facility] TRANSFUSE LEUKO-REDUCED RED 2019-04-15 21:45:24 Yonathan Mccracken [facility] TRANSFUSION SERVICE REPORT - 2019-04-15 18:08:22 Provider, Uday macias [facility] US GUIDE, VASCULAR ACCESS 2019-04-15 17:48:[address] [facility] BLOOD GAS, ARTERIAL 2019-04-15 16:04:00 [facility] BASIC METABOLIC PANEL (7) 2019-04-15 16:03:00 Zhao Moreno [facility] PHOSPHORUS 2019-04-15 16:03:00 Zhao Moreno [facility] CBC W/PLT COUNT & AUTO 2019-04-15 16:03:00 Zhao Moreno Kunal [facility] TRANSFUSE LEUKO-REDUCED RED 2019-04-15 14:21:08 Enoch Chung [facility] XR CHEST 1 VIEW 2019-04-15 14:01:00 Enoch Chung [facility]/BEDSIDE [facility] VENOUS DOPPLER ARM, LEFT 2019-04-15 11:30:[address] [facility] THROMBOELASTOGRAPH (TEG) 2019-04-15 11:28:00 Enoch Chung [facility] POCT-GLUCOSE METER 2019-04-15 11:22:00 Fernando Andrews [facility] TRANSFUSE PLASMA 2019-04-15 11:03:06 Celestina Estrada [facility] ECG 12-LEAD 2019-04-15 10:36:36 Unknown, Hl7 Doctor [facility] ECG 12-LEAD 2019-04-15 10:35:51 Lucio Guillory [facility] TRANSFUSE CRYOPRECIPITATE 2019-04-15 09:22:40 Celestina Estrada [facility] CBC W/PLT COUNT & AUTO 2019-04-15 08:52:00 Enoch Chung [facility] TRANSFUSE LEUKO-REDUCED RED 2019-04-15 07:56:15 [facility]-REDUCED RED 2019-04-15 06:24:32 [facility] 2019-04-15 04:38:[address] [facility] PORTABLE/BEDSIDE Medical Center BLOOD GAS, ARTERIAL 2019-04-15 04:07:00 Josh [facility] MAGNESIUM 2019-04-15 04:05:00 Antonio Grace [facility] BASIC METABOLIC PANEL (7) 2019-04-15 04:05:00 AparnaamYahaira Sangita [facility] PHOSPHORUS 2019-04-15 04:05:00 [facility] LACTIC ACID, ARTERIAL 2019-04-15 04:05:00 Sean [facility] CALCIUM, IONIZED 2019-04-15 04:05:[address] [facility] CBC W/PLT COUNT & AUTO 2019-04-15 04:05:00 [facility] TRANSFUSE LEUKO-REDUCED RED 2019-04-15 03:39:[address] [facility] TRANSFUSE LEUKO-REDUCED RED 2019-04-15 02:17:[address] PROTHROMBIN TIME/INR 2019-04-15 01:58:00 [facility] PT/APTT 2019-04-15 01:58:00 Sean [facility] FIBRINOGEN 2019-04-15 01:58:00 [facility] POCT-GLUCOSE METER 2019-04-15 00:23:00 Bharti Kamara [facility] CORTISOL 2019-04-15 00:07:[address] [facility] CBC W/PLT COUNT & AUTO 2019-04-15 00:07:00 TerryJude S [facility] DIFFERENTIAL [facility] XR CHEST 1 VIEW 2019-04-14 20:32:[address] [facility] PORTABLE/BEDSIDE Medical Center BLOOD GAS, ARTERIAL 2019-04-14 20:00:00 lEma Estradanya [facility] MAGNESIUM 2019-04-14 19:57:00 [facility] PHOSPHORUS 2019-04-14 19:57:00 [facility] CALCIUM, IONIZED 2019-04-14 19:57:00 [facility] FUNGUS CULTURE + SMEAR 2019-04-14 18:48:03 DarrylFernando [facility] AFB CULTURE + SMEAR 2019-04-14 18:48:03 DarrylFernando [facility] (NON-SPUTUM) [facility] BRONCHIAL CULTURE + GRAM 2019-04-14 18:48:[address] [facility] SPIN/CONCENTRATION CHARGE 2019-04-14 18:48:00 Fernando Andrews [facility] CALCIUM, IONIZED 2019-04-14 17:49:02 Elham Holguin [facility] BLOOD GAS, ARTERIAL 2019-04-14 17:49:02 Elham Holguin [facility] SODIUM NA-STAT LAB 2019-04-14 17:49:02 Elham Holguin [facility] POTASSIUM-STAT LAB 2019-04-14 17:49:02 Elham Holguin [facility] GLUCOSE-STAT LAB 2019-04-14 17:49:02 Elham Holguin [facility] HGB/HCT (H&H) - STAT LAB 2019-04-14 17:49:02 Elham Holguin [facility] AFB CULTURE + SMEAR 2019-04-14 17:15:20 Darryl, Fernando [facility] (NON-SPUTUM) [facility] ANAEROBIC CULTURE 2019-04-14 17:15:20 [facility] FUNGUS CULTURE + SMEAR 2019-04-14 17:15:20 [facility] SURGICALLY OBTAINED CULTURE 2019-04-14 17:15:20 [facility] + GRAM STAIN [facility] AFB CULTURE + SMEAR 2019-04-14 17:10:41 [facility] (NON-SPUTUM) [facility] ANAEROBIC CULTURE 2019-04-14 17:10:41 [facility] FUNGUS CULTURE + SMEAR 2019-04-14 17:10:41 [facility] SURGICALLY OBTAINED CULTURE 2019-04-14 17:10:41 [facility] + GRAM STAIN [facility] AFB CULTURE + SMEAR 2019-04-14 17:08:01 DarrylFernando [facility] (NON-SPUTUM) [facility] ANAEROBIC CULTURE 2019-04-14 17:08:01 [facility] OB[facility] CULTURE 2019-04-14 17:08:01 Fernando Andrews [facility] + GRAM STAIN [facility] FUNGUS CULTURE + SMEAR 2019-04-14 17:08:01 DarrylFernando [facility] AFB CULTURE + SMEAR 2019-04-14 17:00:33 [facility] ([facility] ANAEROBIC CULTURE 2019-04-14 17:00:33 DarrylAlanwn [facility] FUNGUS CULTURE + SMEAR 2019-04-14 17:00:33 DarrylFernando [facility] SURGICALLY OBTAINED CULTURE 2019-04-14 17:00:33 DarrylFernando [facility] - + GRAM STAIN [facility] TISSUE EXAM 2019-04-14 16:54:00 Fernando Andrews [facility] CALCIUM, IONIZED 2019-04-14 16:30:09 Elham Holguin [facility] BLOOD GAS, ARTERIAL 2019-04-14 16:30:09 Elham Holguin [facility] SODIUM NA-STAT LAB 2019-04-14 16:30:09 Elham Holguin [facility] POTASSIUM-STAT LAB 2019-04-14 16:30:09 Elham Holguin [facility] GLUCOSE-STAT LAB 2019-04-14 16:30:09 Elham Holguin [facility] HGB/HCT (H&H) - STAT LAB 2019-04-14 16:30:09 Elham Holguin [facility] CYTOLOGY 2019-04-14 15:48:00 Fernando Andrews [facility] SURGICALLY OBTAINED CULTURE 2019-04-14 15:41:33 Fernando Andrews [facility] - + GRAM STAIN [facility] AFB CULTURE + SMEAR 2019-04-14 15:41:33 [facility] [place] FUNGUS CULTURE + SMEAR 2019-04-14 15:41:33 Alan Andrewswn [facility] ANAEROBIC CULTURE 2019-04-14 15:41:33 [facility], IONIZED 2019-04-14 15:24:34 Elham Holguin [facility] BLOOD GAS, ARTERIAL 2019-04-14 15:24:34 Elham Holguin [facility] SODIUM NA-STAT LAB 2019-04-14 15:24:34 Elham Holguin [facility] POTASSIUM-STAT LAB 2019-04-14 15:24:34 Elham Holguin [facility] GLUCOSE-STAT LAB 2019-04-14 15:24:34 Elham Holguin [facility] HGB/HCT (H&H) - STAT LAB 2019-04-14 15:24:34 Elham Holguin [facility] THORACOSCOPY 2019-04-14 13:25:00 Fernando Andrews [facility] (VATS),DECORTICATION Medical [address] BRONCHOSCOPY 2019-04-14 13:25:00 Fernando Andrews [facility] ECG 12-LEAD 2019-04-14 12:19:58 Unknown, Hl7 Doctor [facility] XR CHEST 1 VIEW 2019-04-14 10:05:00 Yonathan Mccracken [facility] PORTABLE/BEDSIDE [facility] MAGNESIUM 2019-04-14 01:01:00 Antonio Grace [facility] PHOSPHORUS 2019-04-14 01:01:00 Antonio Grace [facility] BASIC METABOLIC PANEL (7) 2019-04-14 01:01:00 Aparna [facility] PROTHROMBIN TIME/INR 2019-04-14 01:01:00 Aparna [facility] COMPREHENSIVE METABOLIC 2019-04-14 01:01:00 Zhao Moreno [facility] TYPE AND SCREEN, AUTOMATED 2019-04-14 01:01:00 Aparna [facility] CBC W/PLT COUNT & AUTO 2019-04-14 01:01:00 Antonio Grace [facility] POCT-GLUCOSE METER 2019-04-13 19:57:00 Nalam [facility] POCT-GLUCOSE METER 2019-04-13 17:17:00 Nalam, [facility] POCT-GLUCOSE METER 2019-04-13 11:52:00 [facility], [facility] XR CHEST 1 VIEW 2019-04-13 08:26:00 Jude Stewart [facility] PORTABLE/BEDSIDE [facility] POCT-GLUCOSE METER 2019-04-13 05:58:00 Nal, [facility] CBC W/PLT COUNT & AUTO 2019-04-13 04:50:00 Antonio Grace [facility] MAGNESIUM 2019-04-13 04:39:00 Antonio Grace [facility] PHOSPHORUS 2019-04-13 04:39:00 Antonio Grace [facility] BASIC METABOLIC PANEL (7) 2019-04-13 04:39:00 Nalam, [facility] HEPATIC FUNCTION PANEL 2019-04-13 04:39:00 Nalam, [facility] APTT 2019-04-13 04:29:00 Britton Renee [facility] POCT-GLUCOSE METER 2019-04-12 17:20:00 Nalam, [facility] POCT-GLUCOSE METER 2019-04-12 12:05:00 [facility], [facility] XR CHEST 1 VIEW 2019-04-12 06:43:00 Yonathan Mccracken [facility] - PORTABLE/BEDSIDE [facility] POCT-GLUCOSE METER 2019-04-12 05:21:00 Nalam, [facility] MAGNESIUM 2019-04-12 05:17:00 Antonio Grace [facility] PHOSPHORUS 2019-04-12 05:17:00 Sanjay Antonio Vladislav [facility] BASIC METABOLIC PANEL (7) 2019-04-12 05:17:00 [facility] CBC W/PLT COUNT & AUTO 2019-04-12 05:17:00 Antonio Grace [facility] POCT-GLUCOSE METER 2019-04-12 00:04:00 Nalam, [facility] POCT-GLUCOSE METER 2019-04-11 17:35:00 [facility], [facility] XR CHEST 1 VIEW 2019-04-11 13:04:00 Yonathan Mccracken [facility] - PORTABLE/BEDSIDE [facility] POCT-GLUCOSE METER 2019-04-11 12:09:00 Nalam, [facility] POCT-GLUCOSE METER 2019-04-11 10:39:00 [facility] REPORT OF PROCEDURE - 2019-04-11 10:15:36 Mariana [facility] UPPER [facility]OS[facility],PEG 2019-04-11 09:00:00 Gabriel Pe[facility] POCT-GLUCOSE METER 2019-04-11 07:01:00 [facility] 2019-04-11 05:28:00 Antonio Grace [facility] PHOSPHORUS 2019-04-11 05:28:00 Antonio Grace [facility] BASIC METABOLIC PANEL (7) 2019-04-11 05:28:00 [facility] PROTHROMBIN TIME/INR 2019-04-11 05:28:00 Reena Mayorga [facility] CBC W/PLT COUNT & AUTO 2019-04-11 05:28:[address] [facility] POCT-GLUCOSE METER 2019-04-11 00:16:00 Namita [facility] POCT-GLUCOSE METER 2019-04-10 14:51:00 [facility] CHEST 1 VIEW 2019-04-10 09:16:00 Yonathan Mccracken [facility] - PORTABLE/BEDSIDE [facility] MAGNESIUM 2019-04-10 04:41:00 Antonio Grace [facility] PHOSPHORUS 2019-04-10 04:41:00 Antonio Grace [facility] BASIC METABOLIC PANEL (7) 2019-04-10 04:41:00 Namita [facility] CBC W/PLT COUNT & AUTO 2019-04-10 04:41:[address] [facility] POCT-GLUCOSE METER 2019-04-10 00:37:00 Aparnaam [facility] POCT-GLUCOSE METER 2019-04-09 17:19:00 Aparna, [facility] XR ESOPH SWALLOW FUNCTION 2019-04-09 13:56:00 [facility] - /CINE [facility] BODY FLUID CULTURE + GRAM 2019-04-09 12:10:00 Yonathan Mccracken [facility] POCT-GLUCOSE METER 2019-04-09 11:47:00 Nalam, [facility] POCT-GLUCOSE METER 2019-04-09 09:21:00 Nalam, [facility] XR CHEST 1 VIEW 2019-04-09 06:51:00 Yonathan Mccracken [facility] POCT-GLUCOSE METER 2019-04-09 06:16:00 Aparnaam, [facility] MAGNESIUM 2019-04-09 05:32:00 Sanjay [facility] PHOSPHORUS 2019-04-09 05:32:00 Sanjay [facility] BASIC METABOLIC PANEL (7) 2019-04-09 05:32:00 [facility] CBC W/PLT COUNT & AUTO 2019-04-09 05:32:[address] [facility] POCT-GLUCOSE METER 2019-04-09 01:56:00 [facility]SE [facility] 2019-04-08 17:45:00 [facility] POCT-GLUCOSE METER 2019-04-08 12:36:00 [facility] XR CHEST 1 VIEW 2019-04-08 06:25:00 Yonathan Mccracken [facility] PORTABLE/[facility] POCT-GLUCOSE METER 2019-04-08 05:17:00 Nalam, [facility] MAGNESIUM 2019-04-08 04:12:00 Sanjay [facility] PHOSPHORUS 2019-04-08 04:12:00 Antonio Grace [facility] BASIC METABOLIC PANEL (7) 2019-04-08 04:12:00 [facility] W/PLT COUNT & AUTO 2019-04-08 04:12:00 Antonio Grace [facility] POCT-GLUCOSE METER 2019-04-08 00:22:00 Nalam [facility] BASIC METABOLIC PANEL (7) 2019-04-07 18:08:00 Sean Bates [facility] POCT-GLUCOSE METER 2019-04-07 17:36:00 Nalam, [facility] POCT-GLUCOSE METER 2019-04-07 11:35:00 Nalam, [facility] XR CHEST 1 VIEW 2019-04-07 11:21:00 Britton Dixon [facility] - PORTABLE/BEDSIDE [facility] XR CHEST 1 VIEW 2019-04-07 09:52:00 Yonathan Mccracken [facility] - PORTABLE/BEDSIDE [facility] POCT-GLUCOSE METER 2019-04-07 06:38:00 Nalam, [facility] MAGNESIUM 2019-04-07 06:07:00 Antonio Grace [facility] PHOSPHORUS 2019-04-07 06:07:00 Antonio Grace [facility] BASIC METABOLIC PANEL (7) 2019-04-07 06:07:00 Sean Bates [facility] CBC W/PLT COUNT & AUTO 2019-04-07 06:07:00 LisacarlitaAntonio yañez [facility] POCT-GLUCOSE METER 2019-04-06 23:48:00 Hal, [facility] POCT-GLUCOSE METER 2019-04-06 17:17:00 Hal, [facility] BASIC METABOLIC PANEL (7) 2019-04-06 16:40:00 Sean Bates [facility] POCT-GLUCOSE METER 2019-04-06 12:37:00 Hal, [facility] XR CHEST 1 VIEW 2019-04-06 06:49:00 [facility]BEDSIDE [facility] MAGNESIUM 2019-04-06 06:33:00 CombithsAntonio [facility] PHOSPHORUS 2019-04-06 06:33:00 Combiths [facility] BASIC METABOLIC PANEL (7) 2019-04-06 06:33:00 Jana [facility] CBC W/PLT COUNT & AUTO 2019-04-06 06:33:[address] [facility] POCT-GLUCOSE METER 2019-04-06 05:15:00 Hal, [facility] BASIC METABOLIC PANEL (7) 2019-04-05 16:43:00 Jana, [facility] POCT-GLUCOSE METER 2019-04-05 11:21:00 Hal, [facility] MAGNESIUM 2019-04-05 04:50:00 Combiths [facility] PHOSPHORUS 2019-04-05 04:50:00 Combiths [facility] BASIC METABOLIC PANEL (7) 2019-04-05 04:50:00 Jana [facility] CBC W/PLT COUNT & AUTO 2019-04-05 04:50:[address] [facility] XR CHEST 1 VIEW 2019-04-05 01:58:00 Nawaf [facility] PORTABLE/BEDSIDE [facility] POCT-GLUCOSE METER 2019-04-04 23:42:00 Hal, [facility] POCT-GLUCOSE METER 2019-04-04 17:43:00 Hal, [facility] BASIC METABOLIC PANEL (7) 2019-04-04 16:28:00 Jana, [facility] XR ABDOMEN / KUB 1 VIEW 2019-04-04 15:58:[address] [facility] XR ABDOMEN / KUB 1 VIEW 2019-04-04 15:39:[address] [facility] POCT-GLUCOSE METER 2019-04-04 12:09:00 Hal, [facility] XR CHEST 1 VIEW 2019-04-04 08:30:00 Yonathan Mccracken [facility] PORTABLE/BEDSIDE [facility] POCT-GLUCOSE METER 2019-04-04 05:29:00 Hal, [facility] MAGNESIUM 2019-04-04 04:42:00 Antonio Grace [facility] PHOSPHORUS 2019-04-04 04:42:00 Antonio Grace [facility] BASIC METABOLIC PANEL (7) 2019-04-04 04:42:00 Sean Bates [facility] CBC W/PLT COUNT & AUTO 2019-04-04 04:42:00 Antonio Grace [facility] POCT-GLUCOSE METER 2019-04-03 23:54:00 Hal, [facility] POCT-GLUCOSE METER 2019-04-03 17:02:00 Hal, [facility] BASIC METABOLIC PANEL (7) 2019-04-03 15:27:00 Sean Bates [facility] MAGNESIUM 2019-04-03 15:27:00 Carlos Alberto Caraballo [facility] POCT-GLUCOSE METER 2019-04-03 12:07:00 Jean Marie [facility] POCT-GLUCOSE METER 2019-04-03 05:53:00 Jean Marie [facility] XR CHEST 1 VIEW 2019-04-03 05:14:00 David Sellers [facility] PORTABLE/BEDSIDE [facility] MAGNESIUM 2019-04-03 02:13:00 Antonio Grace [facility] PHOSPHORUS 2019-04-03 02:13:00 Antonio Grace [facility] BASIC METABOLIC PANEL (7) 2019-04-03 02:13:00 Jana, Sean Jamie [facility] CBC W/PLT COUNT & AUTO 2019-04-03 02:13:00 Antonio Grace [facility] POCT-GLUCOSE METER 2019-04-02 23:54:00 Jean Marie [facility] APTT 2019-04-02 22:44:00 [facility] POCT-GLUCOSE METER 2019-04-02 17:26:00 Jean Marie [facility] BASIC METABOLIC PANEL (7) 2019-04-02 16:42:00 Sean Bates [facility] APTT 2019-04-02 16:42:00 [facility] POCT-GLUCOSE METER 2019-04-02 12:20:00 Jean Marie [facility] APTT 2019-04-02 08:12:00 [facility] XR CHEST 1 VIEW 2019-04-02 06:02:00 Carlos Alberto Caraballo [facility] - PORTABLE/BEDSIDE [facility] POCT-GLUCOSE METER 2019-04-02 05:34:00 Jean Marie [facility] APTT 2019-04-02 01:20:00 [facility] BLOOD GAS, ARTERIAL 2019-04-02 01:19:00 Lucio Guillory [facility] MAGNESIUM 2019-04-02 01:18:00 Antonio Grace [facility] PHOSPHORUS 2019-04-02 01:18:00 Antonio Grace [facility] BASIC METABOLIC PANEL (7) 2019-04-02 01:18:00 Sean Bates [facility] CBC W/PLT COUNT & AUTO 2019-04-02 01:18:00 Antonio Grace [facility] POCT-GLUCOSE METER 2019-04-01 23:48:00 Jean Marie [facility] BASIC METABOLIC PANEL (7) 2019-04-01 19:06:00 Sean Bates [facility] APTT 2019-04-01 18:47:00 Thelma [facility] Mackey [facility] POCT-GLUCOSE METER 2019-04-01 17:51:00 [facility] 2019-04-01 11:41:00 Jean Marie [facility]lorraine [facility] APTT 2019-04-01 11:07:00 Britton Renee [facility] POCT-GLUCOSE METER 2019-04-01 06:26:00 Jean Marie [facility] XR CHEST 1 VIEW 2019-04-01 05:07:00 Buddy Ford [facility] PORTABLE/BEDSIDE [facility] BLOOD GAS, ARTERIAL 2019-04-01 03:25:00 Lucio Guillory [facility] MAGNESIUM 2019-04-01 03:23:00 Antonio Grace [facility] PHOSPHORUS 2019-04-01 03:23:00 Antonio Grace [facility] BASIC METABOLIC PANEL (7) 2019-04-01 03:23:00 Sean Bates [facility] APTT 2019-04-01 03:23:00 Thelma [facility]lorraine Mackey [facility] CBC W/PLT COUNT & AUTO 2019-04-01 03:23:00 Antonio Grace [facility] POCT-GLUCOSE METER 2019-03-31 23:51:00 Jean Marie [facility] APTT 2019-03-31 22:13:00 Nemdeion [facility] Foundationhiwot Mackey [facility] APTT 2019-03-31 19:52:00 Thelma [facility]lorraine [facility] POCT-GLUCOSE METER 2019-03-31 18:08:00 [facility] TROPONIN I 2019-03-31 13:59:00 Carrol Burroughs [facility] COMPREHENSIVE METABOLIC 2019-03-31 13:59:00 Carrol Burroughs [facility] PT/APTT 2019-03-31 13:59:00 Carrol Burroughs [facility] MAGNESIUM 2019-03-31 13:59:00 NoCarrol moreau [facility] PHOSPHORUS 2019-03-31 13:59:00 NooriCarrol mckeon [facility] LACTIC ACID, VENOUS 2019-03-31 13:59:00 Lucio Guillory [facility] BASIC METABOLIC PANEL (7) 2019-03-31 13:59:00 Sean Bates [facility] APTT 2019-03-31 13:59:00 Britton Renee [facility] POCT-GLUCOSE METER 2019-03-31 11:50:00 Laya Tabares [facility] XR ABDOMEN / KUB 1 VIEW 2019-03-31 11:33:00 Britton Renee [facility] TROPONIN I 2019-03-31 09:12:00 Lucio Guillory [facility] BLOOD GAS, ARTERIAL 2019-03-31 06:42:00 Lucio Guillory [facility] APTT 2019-03-31 06:42:00 Britton Renee [facility] POCT-GLUCOSE METER 2019-03-31 05:40:00 Laya Tabares [facility] XR CHEST 1 VIEW 2019-03-31 05:29:00 Buddy Ford [facility] PORTABLE/BEDSIDE [facility] APTT 2019-03-31 04:20:00 Britton Renee [facility] BLOOD GAS, ARTERIAL 2019-03-31 03:52:00 Lucio Guillory [facility] LACTIC ACID, VENOUS 2019-03-31 03:51:00 Carrol Burroughs [facility] MAGNESIUM 2019-03-31 03:51:00 Antonio Grace [facility] PHOSPHORUS 2019-03-31 03:51:00 SanjayAntonio [facility] BASIC METABOLIC PANEL (7) 2019-03-31 03:51:00 Sean Bates [facility] CBC W/PLT COUNT & AUTO 2019-03-31 03:51:00 SanjayAntonio Vladislav [facility] B-TYPE NATRIURETIC FACTOR 2019-03-31 01:30:00 Carrol Burroughs [facility] ([facility]NP) [facility] LACTIC ACID, VENOUS 2019-03-31 01:30:00 [facility] 2019-03-31 01:30:00 Pastora [facility] POCT-GLUCOSE METER 2019-03-31 00:17:00 [facility] PE TEST DESIGN 2019-03-30 23:54:00 [facility] WITHOUT IV CONTRAST 2019-03-30 23:54:00 Lucio Guillory [facility] POCT-BLOOD GASES, ARTERIAL 2019-03-30 20:53:[address] [facility] POCT-SODIUM 2019-03-30 20:53:00 [facility] POCT-POTASSIUM 2019-03-30 20:53:00 Laya Tabares [facility] POCT-GLUCOSE 2019-03-30 20:53:00 [facility] POCT-CALCIUM IONIZED 2019-03-30 20:53:[address] [facility] POCT-HEMATOCRIT 2019-03-30 20:53:00 [facility] POCT-HEMOGLOBIN 2019-03-30 20:53:00 [facility] COMPREHENSIVE METABOLIC 2019-03-30 20:44:00 Carrol Burroughs [facility] TROPONIN I 2019-03-30 20:44:00 Manjeet Carrol Stephesn [facility] MAGNESIUM 2019-03-30 20:44:00 Manjeet Carrol Stephens [facility] PHOSPHORUS 2019-03-30 20:44:00 [facility]ID, VENOUS 2019-03-30 20:44:00 Britton Zamudio [facility] CBC W/PLT COUNT & AUTO 2019-03-30 20:44:00 Manjeet Carrol Stephens [facility] XR CHEST 1 VIEW 2019-03-30 20:34:00 Manjeet Carrol Stephens [facility] PORTABLE/BEDSIDE [facility] APTT 2019-03-30 17:57:00 Britton Renee [facility] POCT-GLUCOSE METER 2019-03-30 17:54:00 [facility] BASIC METABOLIC PANEL (7) 2019-03-30 15:46:00 Sean Bates [facility] APTT 2019-03-30 12:08:00 Britton Renee [facility] POCT-GLUCOSE METER 2019-03-30 11:49:[address] [facility] XR CHEST 1 VIEW 2019-03-30 07:47:00 Buddy Ford [facility] PORTABLE/BEDSIDE [facility] APTT 2019-03-30 06:32:00 Britton Renee [facility] POCT-GLUCOSE METER 2019-03-30 05:55:00 [facility]ESIUM 2019-03-30 04:31:00 Antonio Grace [facility] PHOSPHORUS 2019-03-30 04:31:00 Antonio Grace [facility] BASIC METABOLIC PANEL (7) 2019-03-30 04:31:00 Sean Bates eph [facility] APTT 2019-03-30 04:31:00 Britton Renee [facility] CBC W/PLT COUNT & AUTO 2019-03-30 04:31:00 Antonio Grace [facility] POCT-GLUCOSE METER 2019-03-30 00:16:00 [facility] POCT-GLUCOSE METER 2019-03-29 18:14:00 [facility] BASIC METABOLIC PANEL (7) 2019-03-29 12:20:00 Buddy Ford [facility] POCT-GLUCOSE METER 2019-03-29 12:18:00 [facility] POCT-GLUCOSE METER 2019-03-29 06:00:00 [facility]ST 1 VIEW 2019-03-29 04:42:00 Sean Bates [facility] PORTABLE/BEDSIDE [facility] APTT 2019-03-29 03:33:00 Britton Renee [facility] MAGNESIUM 2019-03-29 03:30:00 Antonio Grace [facility] PHOSPHORUS 2019-03-29 03:30:00 Antonio Grace [facility] BASIC METABOLIC PANEL (7) 2019-03-29 03:30:00 Sean Bates [facility] CBC W/PLT COUNT & AUTO 2019-03-29 03:30:00 Antonio Grace [facility] POCT-GLUCOSE METER 2019-03-29 00:23:00 [facility] VANCOMYCIN LEVEL, TROUGH 2019-03-28 20:25:00 Alexandrea Hoffman [facility] APTT 2019-03-28 20:25:00 Britton Renee [facility] POCT-GLUCOSE METER 2019-03-28 17:33:00 [facility] BASIC METABOLIC PANEL (7) 2019-03-28 16:03:00 Sean Bates [facility] APTT 2019-03-28 14:03:00 Britton Renee [facility] POCT-GLUCOSE METER 2019-03-28 12:26:00 Laya Tabares [facility] CYTOLOGY 2019-03-28 08:03:00 Britton Renee [facility] APTT 2019-03-28 06:30:00 Britton Renee [facility] MAGNESIUM 2019-03-28 04:21:00 Antonio Grace [facility] PHOSPHORUS 2019-03-28 04:21:00 Antonio Grace [facility] BASIC METABOLIC PANEL (7) 2019-03-28 04:21:00 Sean Bates [facility] APTT 2019-03-28 04:21:00 Britton Renee [facility] CBC W/PLT COUNT & AUTO 2019-03-28 04:21:00 Antonio Grace [facility] XR CHEST 1 VIEW 2019-03-28 03:24:00 [facility] POCT-GLUCOSE METER 2019-03-28 00:13:00 Laya Tabares [facility] POCT-GLUCOSE METER 2019-03-27 17:40:00 Laya Tabares [facility] BASIC METABOLIC PANEL (7) 2019-03-27 16:05:00 Sean Bates [facility] APTT 2019-03-27 12:05:00 Britton Renee [facility] POCT-GLUCOSE METER 2019-03-27 11:31:00 Laya Tabares [facility] APTT 2019-03-27 05:34:00 Britton Renee [facility] POCT-GLUCOSE METER 2019-03-27 05:05:00 Laya Tabares [facility] MAGNESIUM 2019-03-27 04:32:00 Antonio Grace [facility] PHOSPHORUS 2019-03-27 04:32:00 Antonio Grace [facility] BASIC METABOLIC PANEL (7) 2019-03-27 04:32:00 Sean Bates [facility] CBC W/PLT COUNT & AUTO 2019-03-27 04:32:00 Antonio Grace [facility] XR CHEST 1 VIEW 2019-03-27 03:54:00 Sean B[facility]es [facility] ECHOCARDIOGRAM REPORT - SCAN 2019-03-26 21:11:42 Uday Wilkes lt [facility] APTT 2019-03-26 20:13:00 Britton Renee [facility] IR DRAINAGE CATHETER CHANGE 2019-03-26 19:30:[address] [facility] POCT-GLUCOSE METER 2019-03-26 18:20:00 Laya Tabares [facility] BASIC METABOLIC PANEL (7) 2019-03-26 17:33:00 Britton Renee [facility] APTT 2019-03-26 12:53:00 Britton Renee [facility] POCT-GLUCOSE METER 2019-03-26 11:54:00 Laya Tabares [facility] APTT 2019-03-26 10:27:00 Britton Renee [facility] POCT-GLUCOSE METER 2019-03-26 06:42:00 Laya Tabares [facility] XR CHEST 1 VIEW 2019-03-26 03:58:00 Artur Ariza [facility] BLOOD GAS, ARTERIAL 2019-03-26 03:08:00 Antonio Grace [facility] MAGNESIUM 2019-03-26 03:00:00 Antonio Grace [facility] PHOSPHORUS 2019-03-26 03:00:00 Antonio Grace [facility] BASIC METABOLIC PANEL (7) 2019-03-26 03:00:00 Tomer Lora [facility] APTT 2019-03-26 03:00:00 Britton Renee [facility] CBC W/PLT COUNT & AUTO 2019-03-26 03:00:00 Antonio Grace [facility] POCT-GLUCOSE METER 2019-03-26 00:02:00 Laya Tabares [facility] BASIC METABOLIC PANEL (7) 2019-03-25 20:05:00 Tomer Lora [facility] 2D ECHO W/ DOPPLER 2019-03-25 19:04:43 [facility] (CW/PW/COLOR) [facility] POCT-GLUCOSE METER 2019-03-25 18:10:00 Laya Tabares [facility] CT CHEST WITHOUT IV CONTRAST 2019-03-25 18:00:00 [facility] Cely [facility] CT ABDOMEN/PELVIS WITHOUT IV 2019-03-25 18:00:00 [facility] XR CHEST 1 VIEW 2019-03-25 16:10:00 GucciBritton [facility] APTT 2019-03-25 15:30:00 [facility] Health[facility]on [facility] BASIC METABOLIC PANEL (7) 2019-03-25 11:46:00 Tomer Lora [facility] BLOOD GAS, ARTERIAL 2019-03-25 11:43:00 Broderick Nieto I [facility] POCT-GLUCOSE METER 2019-03-25 11:40:00 Laya Tabares [facility] APTT 2019-03-25 09:33:00 GucciBritton [facility] BLOOD CULTURE 2019-03-25 09:32:00 [facility] Mackey [facility] SPUTUM CULTURE + GRAM STAIN 2019-03-25 09:08:00 Dread Renee [facility] URINE CULTURE 2019-03-25 09:08:00 Britton Renee [facility] URINALYSIS W/ REFLEX URINE 2019-03-25 09:08:00 Steve Renee [facility] ECG 12-LEAD 2019-03-25 08:09:17 Britton Renee [facility] POCT-GLUCOSE METER 2019-03-25 06:06:00 Laya Tabares [facility] XR CHEST 1 VIEW 2019-03-25 04:03:00 Artur Ariza [facility] MAGNESIUM 2019-03-25 03:30:00 Antonio Grace [facility] PHOSPHORUS 2019-03-25 03:30:00 Antonio Grace [facility] BASIC METABOLIC PANEL (7) 2019-03-25 03:30:00 Tomer Lora [facility] APTT 2019-03-25 03:09:00 Britton Renee [facility] CBC W/PLT COUNT & AUTO 2019-03-25 03:09:00 Antonio Grace [facility] POCT-GLUCOSE METER 2019-03-25 00:01:00 Laya Tabares [facility] BASIC METABOLIC PANEL (7) 2019-03-24 20:31:00 Tomer Lora [facility] APTT 2019-03-24 20:31:00 Britton Renee [facility] POCT-GLUCOSE METER 2019-03-24 18:07:00 Laya Tabares [facility] XR CHEST 1 VIEW 2019-03-24 17:12:00 Aurelio Cassidy [facility] XR ABDOMEN / KUB 1 VIEW 2019-03-24 17:12:00 Aurelio Cassidy [facility] BASIC METABOLIC PANEL (7) 2019-03-24 12:36:00 Tomer Lora [facility] APTT 2019-03-24 12:36:00 Britton Renee [facility] POCT-GLUCOSE METER 2019-03-24 12:17:00 Laya Tabares [facility] BLOOD GAS, ARTERIAL 2019-03-24 12:04:00 Gerson Vonnierocio Ponce [facility] I [facility] EEG EXTENDED MONITORING 40 - 2019-03-24 11:23:00 NemehAden [facility] 60 MINUTES [facility] POCT-GLUCOSE METER 2019-03-24 05:58:00 Tomer Lora [facility] BLOOD GAS, ARTERIAL 2019-03-24 04:29:00 Fredi Acosta [facility] APTT 2019-03-24 04:25:00 Britton Renee [facility] MAGNESIUM 2019-03-24 04:10:00 Antonio Grace [facility] PHOSPHORUS 2019-03-24 04:10:00 Antonio Grace [facility] BASIC METABOLIC PANEL (7) 2019-03-24 04:10:00 Tomer Lora [facility] CBC W/PLT COUNT & AUTO 2019-03-24 04:10:00 Antonio Grace [facility] XR CHEST 1 VIEW 2019-03-24 03:00:00 Artur Ariza [facility] CT BRAIN WITHOUT IV CONTRAST 2019-03-24 01:12:00 Fredi Acosta [facility] POCT-GLUCOSE METER 2019-03-24 00:05:00 Tomer Lora [facility] VANCOMYCIN LEVEL, TROUGH 2019-03-23 23:59:00 Lina Adkins [facility] BASIC METABOLIC PANEL (7) 2019-03-23 19:44:00 Tomer Lora [facility] BASIC METABOLIC PANEL (7) 2019-03-23 15:55:00 Tomer Lora [facility] HEPATIC FUNCTION PANEL 2019-03-23 15:55:00 Tomer Lora [facility] AMMONIA 2019-03-23 15:55:00 Artur Ariza [facility] MAGNESIUM 2019-03-23 05:58:00 Antonio Grace [facility] PHOSPHORUS 2019-03-23 05:58:00 Antonio Grace [facility] BASIC METABOLIC PANEL (7) 2019-03-23 05:58:00 Tomer Lora [facility] APTT 2019-03-23 05:58:00 [facility] BLOOD GAS, ARTERIAL 2019-03-23 05:58:00 [facility] CBC W/PLT COUNT & AUTO 2019-03-23 05:58:00 Antonio Grace [facility] (CELLAVISION MANUAL DIFF) 2019-03-23 05:58:00 Antonio Grace [facility] POCT-GLUCOSE METER 2019-03-23 05:24:00 Tomer Lora [facility] POCT-GLUCOSE METER 2019-03-23 00:09:00 Tomer Lora [facility] APTT 2019-03-22 23:35:00 Britton Renee [facility] BASIC METABOLIC PANEL (7) 2019-03-22 20:05:00 Tomer Lora [facility] PT/APTT 2019-03-22 17:15:00 Tomer Lora [facility] AFB CULTURE + SMEAR 2019-03-22 14:37:00 Tomer Lora [facility] (NON-SPUTUM) [facility] BODY FLUID CELL COUNT WITH 2019-03-22 14:37:00 Tomer Lora [facility] FUNGUS CULTURE + SMEAR 2019-03-22 14:37:00 Tomer Lora [facility] SPIN/CONCENTRATION CHARGE 2019-03-22 14:37:00 Tomer Lora [facility] ADENOSINE DEAMINASE, FLUID 2019-03-22 14:36:00 Tomer Lora [facility] BODY FLUID CULTURE + GRAM 2019-03-22 14:36:[address] [facility] GLUCOSE PLEURAL FLUID 2019-03-22 14:36:00 Tomer Lora [facility] LACTATE DEHYDROGENASE (LD), 2019-03-22 14:36:00 Tomer Lora Ba [facility] PH, BODY FLUID 2019-03-22 14:36:00 Tomer Lora [facility] PROTEIN, TOTAL, PLEURAL 2019-03-22 14:36:00 Tomer Lora [facility] TRIGLYCERIDES, PLEURAL FLUID 2019-03-22 14:36:00 Tomer Lora [facility] ADENOSINE DEAMINASE, FLUID 2019-03-22 14:35:00 Tomer Lora [facility] AFB CULTURE + SMEAR 2019-03-22 14:35:00 Tomer Loar [facility] (NON-SPUTUM) [facility] ALBUMIN PLEURAL FLUID 2019-03-22 14:35:00 Tomer Lora [facility] BODY FLUID CELL COUNT WITH 2019-03-22 14:35:00 Tomer Lora [facility] BODY FLUID CULTURE + GRAM 2019-03-22 14:35:[address] [facility] FUNGUS CULTURE + SMEAR 2019-03-22 14:35:00 Tomer Lora [facility] GLUCOSE PLEURAL FLUID 2019-03-22 14:35:00 Tomer Lora [facility] LACTATE DEHYDROGENASE (LD), 2019-03-22 14:35:00 Tomer Lora Ba [facility] PROTEIN, TOTAL, PLEURAL 2019-03-22 14:35:00 Tomer Lora [facility] PH, BODY FLUID 2019-03-22 14:35:00 Tomer Lora [facility] TRIGLYCERIDES, PLEURAL FLUID 2019-03-22 14:35:00 Tomer Lora [facility] BRONCHIAL CULTURE + GRAM 2019-03-22 14:32:[address] [facility] FUNGUS CULTURE + SMEAR 2019-03-22 14:32:00 Tomer Lora [facility] LEGIONELLA CULTURE 2019-03-22 14:32:00 Tomer Lora [facility] AFB CULTURE + SMEAR 2019-03-22 14:32:00 Tomer Lora CH, I [facility] (NON-SPUTUM) [facility] SPIN/CONCENTRATION CHARGE 2019-03-22 14:32:00 Tomer Lora [facility] BLOOD CULTURE 2019-03-22 09:35:00 Britton Renee [facility] BASIC METABOLIC PANEL (7) 2019-03-22 09:35:00 Tomer Lora [facility] APTT 2019-03-22 09:35:00 Britton Renee [facility] XR CHEST 1 VIEW 2019-03-22 08:09:00 Antonio Grace [facility] PORTABLE/BEDSIDE Medical Center POCT-GLUCOSE METER 2019-03-22 05:53:00 Tomer Lora [facility] VANCOMYCIN LEVEL, TROUGH 2019-03-22 01:58:00 Josh Keri [facility] MAGNESIUM 2019-03-22 01:58:00 Antonio Grace [facility] PHOSPHORUS 2019-03-22 01:58:00 Antonio Grace [facility] BASIC METABOLIC PANEL (7) 2019-03-22 01:58:00 Tomer Lora [facility] CBC W/PLT COUNT & AUTO 2019-03-22 01:58:00 Antonio Grace [facility] POCT-GLUCOSE METER 2019-03-22 00:30:00 Tomer Lora [facility] BASIC METABOLIC PANEL (7) 2019-03-21 21:52:00 Tomer Lora [facility] TRANSFUSION SERVICE REPORT - 2019-03-21 21:06:03 Provider, Uday macias [facility] BODY FLUID CULTURE + GRAM 2019-03-21 19:34:00 Broderick Nieto [facility] BODY FLUID CELL COUNT WITH 2019-03-21 19:10:00 [facility] FUNGUS CULTURE + SMEAR 2019-03-21 19:10:00 Kishore [facility]ietomedisys health networkrocio [facility] PH, BODY FLUID 2019-03-21 19:10:00 Kishore Nietomedisys health networkrocio [facility] PROTEIN, TOTAL, PLEURAL 2019-03-21 19:10:00 [facility] TRIGLYCERIDES, PLEURAL FLUID 2019-03-21 19:10:00 Patricia Nieto [facility] ALBUMIN PLEURAL FLUID 2019-03-21 19:09:00 Kishore Nietomedisys health networkrocio [facility] GLUCOSE PLEURAL FLUID 2019-03-21 19:09:00 Kishore [facility]ietomedisys health networkrocio [facility] LACTATE DEHYDROGENASE (LD), 2019-03-21 19:09:00 Devon Nieto [facility] US DRAINAGE CHEST WITH TUBE 2019-03-21 18:25:00 Tomer Lora Ba [facility] MRSA SCREEN 2019-03-21 08:50:00 Britton Renee [facility] RAPID INFLUENZA A&B SCREEN 2019-03-21 08:50:00 Tomer Lora [facility] RESPIRATORY PANEL [facility] 2019-03-21 08:50:00 Tomer Lora [facility] RETICULOCYTE COUNT 2019-03-21 08:50:00 Tomer Lora [facility] FERRITIN 2019-03-21 08:49:00 Tomer Lora [facility] IRON, TIBC, % SAT. (WITHOUT 2019-03-21 08:49:00 Tomer Lora Baara [facility] LACTATE DEHYDROGENASE (LDH) 2019-03-21 08:49:00 [facility] FOLATE 2019-03-21 08:49:00 Tomer Lora [facility] BASIC METABOLIC PANEL (7) 2019-03-21 08:49:00 Tmoer Lora [facility] MAGNESIUM 2019-03-21 08:49:00 Tomer Lora [facility] POCT-GLUCOSE METER 2019-03-21 05:34:00 Tomer Lora [facility] US ABDOMEN LIMITED 2019-03-21 03:55:00 Antonio Grace [facility] MAGNESIUM 2019-03-21 02:03:00 Antonio Grace [facility] PHOSPHORUS 2019-03-21 02:03:00 Antonio Grace [facility] CBC W/PLT COUNT & AUTO 2019-03-21 02:03:00 Antonio Grace [facility] (CELLAVISION MANUAL DIFF) 2019-03-21 02:03:00 Antonio Grace [facility] BASIC METABOLIC PANEL (7) 2019-03-21 00:18:00 Broderick Nieto [facility] MAGNESIUM 2019-03-21 00:18:00 Antonio Grace [facility] POCT-GLUCOSE METER 2019-03-20 23:46:00 Tomer Lora [facility] ECHOCARDIOGRAM REPORT - SCAN 2019-03-20 21:22:37 Uday Wilkes lt [facility] POCT-GLUCOSE METER 2019-03-20 18:11:00 Tomer Lora [facility] BLOOD GAS, ARTERIAL 2019-03-20 16:34:00 Britton Renee [facility] BASIC METABOLIC PANEL (7) 2019-03-20 16:33:00 Broderick Nieto [facility] MAGNESIUM 2019-03-20 16:33:00 Antonio Grace [facility] VANCOMYCIN LEVEL, TROUGH 2019-03-20 12:58:00 Britton Renee [facility] ECG 12-LEAD 2019-03-20 12:42:24 Unknown, Hl7 Doctor [facility] POCT-GLUCOSE METER 2019-03-20 12:14:00 Guido Tomer [facility] 2D ECHO W/ DOPPLER 2019-03-20 11:05:52 Tomer Lora [facility] (CW/PW/COLOR) [facility] CT CHEST WITHOUT IV CONTRAST 2019-03-20 10:45:00 Aden Renee [facility] SPUTUM CULTURE + GRAM STAIN 2019-03-20 06:31:00 Antonio Grace [facility] TROPONIN I 2019-03-20 05:49:00 Antonio Grace [facility] ABORH, MANUAL 2019-03-20 05:48:00 Trista Salmeron [facility] POCT-GLUCOSE METER 2019-03-20 05:44:00 Tomer Lora [facility] XR CHEST 1 VIEW 2019-03-20 04:05:00 Antonio Grace [facility] BLOOD GAS, ARTERIAL 2019-03-20 03:14:00 Sanjay [facility] BLOOD CULTURE 2019-03-20 03:08:00 Sanjay Antonio Vladislva [facility] VANCOMYCIN LEVEL, RANDOM 2019-03-20 03:00:00 Antonio Grace [facility] B-TYPE NATRIURETIC FACTOR 2019-03-20 03:00:00 Antonio Grace [facility] (BNP) [facility] HEMOGLOBIN A1C 2019-03-20 03:00:00 Sanjay [facility] TSH/FREE T4 IF INDICATED 2019-03-20 03:00:00 Sanjay Antonio Vladislav [facility] PROTHROMBIN TIME/INR 2019-03-20 03:00:00 Sanjay [facility] PT/APTT 2019-03-20 03:00:00 Combiths [facility] LACTIC ACID, VENOUS 2019-03-20 03:00:00 Combiths, [facility] FIBRINOGEN 2019-03-20 03:00:00 Carlees [facility] TYPE AND SCREEN, AUTOMATED 2019-03-20 03:00:00 Sanjay [facility] BASIC METABOLIC PANEL (7) 2019-03-20 02:59:00 [facility] HEPATIC FUNCTION PANEL 2019-03-20 02:59:00 [facility], [facility] MAGNESIUM 2019-03-20 02:59:00 [facility] PHOSPHORUS 2019-03-20 02:59:00 [facility] TROPONIN I 2019-03-20 02:59:00 [facility] LIPID PANEL 2019-03-20 02:59:00 [facility] CBC W/PLT COUNT & AUTO 2019-03-20 02:59:[address] [facility] LEGIONELLA URINE ANTIGEN 2019-03-20 02:23:00 [facility] URINE CULTURE 2019-03-20 02:22:00 Sanjay [facility] SODIUM, RANDOM URINE 2019-03-20 02:22:00 [facility] CHLORIDE, RANDOM URINE 2019-03-20 02:22:00 [facility] CREATININE, RANDOM URINE 2019-03-20 02:22:00 [facility] UREA NITROGEN, RANDOM URINE 2019-03-20 02:22:00 [facility] PROTEIN, RANDOM URINE 2019-03-20 02:22:00 [facility] OSMOLALITY, URINE 2019-03-20 02:22:00 [facility] Antonio M [facility] URINALYSIS W/ REFLEX URINE 2019-03-20 02:22:00 Antonio Grace [facility] POCT-GLUCOSE METER 2019-03-20 00:39:00 Tomer Lora [facility] ECG 12-LEAD 2019-03-20 00:28:11 Unknown, Hl7 Doctor [facility] REPORT OF PROCEDURE - 2019-01-28 13:40:05 Provider, Default [facility] ENDOSCOPY SCAN Scanning [facility] RHYTHM STRIP - SCAN 2019-01-28 13:40:02 Provider, Formerly [facility] BASIC METABOLIC PANEL (7) 2019-01-24 04:31:00 Josue Rich [facility] MAGNESIUM 2019-01-24 04:31:00 Jose [facility] PHOSPHORUS 2019-01-24 04:31:00 Jose [facility] CBC W/PLT COUNT & AUTO 2019-01-24 04:31:00 Josue Rich [facility] TROPONIN I 2019-01-23 21:59:00 [facility] - SCAN 2019-01-23 21:21:25 ProviderUday [facility] TROPONIN I 2019-01-23 16:02:00 Josue Rich [facility] TSH/FREE T4 IF INDICATED 2019-01-23 10:13:00 [facility] 2019-01-23 10:13:00 Josue Rich [facility] B-TYPE NATRIURETIC FACTOR 2019-01-23 10:13:00 Josue Rich [facility] (BNP) [facility] ECG 12-LEAD 2019-01-23 09:00:25 Hilario [facility] MRA HEAD WITHOUT IV CONTRAST 2019-01-23 08:01:00 Josue Rich [facility] BASIC METABOLIC PANEL (7) 2019-01-23 04:59:00 Josue Rich CH, I [facility] MAGNESIUM 2019-01-23 04:59:00 Josue Rich [facility] CBC W/PLT COUNT & AUTO 2019-01-23 04:59:00 Josue Rich S [facility] POTASSIUM 2019-01-22 19:43:00 Josue Rich [facility] MR BRAIN WITHOUT IV CONTRAST 2019-01-22 18:11:00 Aden Hamilton [facility] CTA BRAIN 2019-01-22 16:59[facility] 2019-01-22 16:59:00 Laureano [facility] 2D ECHO W/ DOPPLER 2019-01-22 13:16:11 [facility] LIPID PANEL 2019-01-22 04:17:00 [facility] HEMOGLOBIN A1C 2019-01-22 04:17:00 [facility] TROPONIN I 2019-01-22 04:17:00 [facility] MAGNESIUM 2019-01-22 04:17:00 Hilario Josue [facility] BASIC METABOLIC PANEL (7) 2019-01-21 23:26:00 [facility] TROPONIN I 2019-01-21 23:26:00 [facility] TSH/FREE T4 IF INDICATED 2019-01-21 23:26:00 Iris Freeman [facility] RPR 2019-01-21 23:26:00 Iris Freeman [facility] VITAMIN B12 AND FOLATE 2019-01-21 23:26:00 Iris Freeman [facility] PROTHROMBIN TIME/INR 2019-01-21 23:26:00 Iris Freeman [facility] CBC W/PLT COUNT & AUTO 2019-01-21 23:26:00 Britton Hamilton CH I [facility] XR CHEST 1 VIEW 2019-01-21 23:19:00 Iris Freeman [facility] Plan of Care Planned Activity Planned Date Details Comments Source Future Scheduled 2019-10-28 [facility]00 (Season Ended) [code = Medic al Center INFLUENZA VACCINE (Season Ended)] Future Scheduled 1961 PNEUMOCOCCAL VACCINE [facility] - Test 00:00:00 2-64 YEARS AT RISK (1 Medica l Center of 1 - PPSV23) [code = PNEUMOCOCCAL VACCINE 2-64 YEARS AT RISK (1 of 1 - PPSV23)] Future Scheduled 1955 COLON CANCER SCREENING C [facility] - Test 00:00:00 COLONOSCOPY [code = [facility] COLON CANCER SCREENING COLONOSCOPY] Encounters Start End Encounter Admission Attending Care Care Encounter Source Date/Time Date/Time Type Type Clinicians Facility Department ID 2019-08-20 2019-08-20 [facility] [id number] 00:00:00 00:00:00 Kinjal Figueroa 350.1.13.10 [place] 4[facility]2.7.2.686 [id number] [address] 2019-08-08 2019-08-08 Orders Doctor HYACINTH [id number] 00:00:00 00:00:00 Only Unassigned, MARIO 350.1.13.10 [place] [facility] 4.2.7.2.686 [id number] 2019-08-07 2019-08-07 Office Feli [facility] [id number] 13:49:25 22:20:07 Visit Kinjal Figueroa 350.1.13.10 [place] 4.2.7.2.686 Professlili [id number] [address] 2019-05-08 2019-05-08 Office CORNELL Andrews [id number] 10:44:48 16:34:59 Visit Fernando AMBULATOR 350.1.13.21 Y 0.2.7.2.686 [id number] Results Test Description Test Time Test Comments Results Result Comments Source POC-Glucose meter 2019-06-09 18:49:00 Test Item Value Reference Range Interpretation Comme nts POC-Glucose Meter (test code = 72 mg/dL 70-110 : TESTED AT [facility] [address] [facility] 1538) [facility], 770 30: Senior It Security Analyst/Techni aaron ID = [id number] for RYAN ECHOLS Lab Interpretation (test code = Normal 43325-4) [facility] [id number] 18:49:00 Test Item Value Reference Range Interpretation Comments POC-GLUCOSE METER 72 mg/dL 70-110 : TESTED A T [facility] (BEAKER) (test code = [facility] Enrike [facility], 1538) 99782: Senior It Security Analyst/Techni aaron ID = [id number] for RYAN NICE POCT-GLUCOSE [id number] 13:07:00 Test Item Value Reference Range Interpretation Comments POC-GLUCOSE METER 83 mg/dL 70-110 : TESTED A T [facility] (BEAKER) (test code = [facility] Enrike [facility], 1538) 78231: Senior It Security Analyst/Techni aaron ID = [id number] for RYAN NICE Comprehensive metabolic [id number] 12:12:00 Test Item Value Reference Range Interpretation Comments Protein, Total (test 6.7 6.0- 8.3 gm/dL Speci men slightly code = 2885-2) hemolyzed Albumin (test code = 2.1 g/dL 3.5-5 L Specime n slightly 52487-3) hemolyzed Alkaline Phosphatase 202 U/L 40-150 H (test code = 6768-6) Total Bilirubin (test 1.2 mg/dL 0.2-1.2 Specim en slightly code = 1975-2) hemolyzed Sodium (test code = 142 meq/L 047-088 5547-2) Potassium (test code = 4.4 meq/L 3.5-5.1 Speci men slightly 2823-3) hemolyzed Chloride (test code = 107 meq/L 98-107 5-0) CO2 (test code = 30 meq/L 22-29 H 2028-9) BUN (test code = 25 mg/dL 7-21 H 3094-0) Creatinine (test code 0.76 mg/dL 0.57-1.25 Specim en slightly = 2160-0) hemolyzed Glucose (test code = 108 mg/dL 70-105 H 2345-7) Calcium (test code = 7.9 mg/dL 8.4-10.2 L 55527-7) AST (test code = 77 U/L 5-34 H Specimen sl ightly 1920-8) hemolyzed ALT (test code = 86 U/L 6-55 H Specimen sl ightly 1742-6) hemolyzed EGFR (test code = 103 mL/min/1.73 [place] [address]-4) NOT ACCURATE CREATININE CLEARANCE IN PREDICTING GLOMERULAR FILTRATION RATE . ESTIMATED GFR I S NOT APPLICABLE FOR DIALYSIS PATIENTS. DORI (test code = DORI) Senior It Security Analyst ID - ELISSA M Lab Interpretation Abnormal (test code = 70427-7) [facility] [id number] 12:12:00 Test Item Value Reference Range Interpretation [...] S NOT APPLICABLE FOR DIALYSIS PATIEN TS. Senior It Security Analyst ID - ELISSA MPOCT-GLUCOSE [id number] 06:17:00 Test Item Value Reference Range Interpretation Comments POC-GLUCOSE METER 105 mg/dL 70-110 : TESTED A T [facility] 67[address] ([facility]) (test code = [facility], [facility]) 57974: Senior It Security Analyst/Techni aaron ID = [id number] for DO MINGUEZ, ELIDIA POCT-GLUCOSE [id number] 23:52:00 Test Item Value Reference Range Interpretation Comments POC-GLUCOSE METER 97 mg/dL 70-110 : TESTED A T [facility] 67[address] ([facility]) (test code = [facility], [facility]) 08657: Senior It Security Analyst/Techni aaron ID = [id number] for DULCE BELLO, ELIDIA POCT-GLUCOSE [id number] 18:31:00 Test Item Value Reference Range Interpretation Comments POC-GLUCOSE METER 102 mg/dL 70-110 : TESTED A T [facility] [address] ([facility]) (test code = [facility], [facility]) 97769: Senior It Security Analyst/Techni aaron ID = [id number] for CO RTEZ, JOSY POCT-GLUCOSE [id number] 17:27:00 Test Item Value Reference Range Interpretation Comments POC-GLUCOSE METER 106 mg/dL 70-110 : TESTED A T [facility] [address] ([facility]) (test code = [facility], [facility]8) 81177: Senior It Security Analyst/Techni aaron ID = [id number] for RA JANY, LATOYA POCT-GLUCOSE [id number] 23:31:00 Test Item Value Reference Range Interpretation Comments POC-GLUCOSE METER 101 mg/dL 70-110 : TESTED A T [facility] 67[address] (BEAKER) (test code = [facility], 153) 81186: Senior It Security Analyst/Techni aaron ID = [id number] for RA GLAND, LATOYA POCT-GLUCOSE [id number] 18:53:00 Test Item Value Reference Range Interpretation Comments POC-GLUCOSE METER 89 mg/dL 70-110 : TESTED A T [facility] 6720 (BEAKER) (test code [facility], [address]: = 1538) Senior It Security Analyst/Techni aaron ID = [id number] for JAX CARDOSO POCT-GLUCOSE [id number] 17:25:00 Test Item Value Reference Range Interpretation Comments POC-GLUCOSE METER 67 mg/dL 70-110 L : TESTED A T [facility] 67[address] (BEAKER) (test code = [facility], 153) 03679: Senior It Security Analyst/Techni aaron ID = [id number] for DE L AROSA-DELUNA, KIRSTEN POCT-GLUCOSE [id number] 14:28:00 Test Item Value Reference Range Interpretation Comments POC-GLUCOSE METER 88 mg/dL 70-110 : TESTED A T [facility] 67[address] (BEAKER) (test code = [facility], 153) 88149: Senior It Security Analyst/Techni aaron ID = [id number] for DE LA ROSA-DELUNA, KIRSTEN POCT-GLUCOSE [id number] 06:27:00 Test Item Value Reference Range Interpretation Comments POC-GLUCOSE METER 101 mg/dL 70-110 : TESTED A T [facility] 67[address] (BEAKER) (test code = [facility], 1538) 19305: Senior It Security Analyst/Techni aaron ID = [id number] for RA GLAND, LATOYA POCT-GLUCOSE [id number] 23:55:00 Test Item Value Reference Range Interpretation Comments POC-GLUCOSE METER 97 mg/dL 70-110 : TESTED A T [facility] [address] (BEAKER) (test code = [facility], 153) 09839: Senior It Security Analyst/Techni aaron ID = [id number] for RAGL AND, LATOYA POCT-GLUCOSE [id number] 17:59:00 Test Item Value Reference Range Interpretation Comments POC-GLUCOSE METER 92 mg/dL 70-110 : TESTED A T [facility] [address] (BEAKER) (test code = [facility], 153) 83139: Senior It Security Analyst/Techni aaron ID = [id number] for Leeanna Norwood POCT-GLUCOSE [id number] 12:15:00 Test Item Value Reference Range Interpretation Comments POC-GLUCOSE METER 103 mg/dL 70-110 : TESTED A T [facility] [address] (BEAKER) (test code = [facility], 153) 45061: Senior It Security Analyst/Techni aaron ID = [id number] for Leeanna Kelley POCT-GLUCOSE [id number] 05:55:00 Test Item Value Reference Range Interpretation Comments POC-GLUCOSE METER 105 mg/dL 70-110 : TESTED A T [facility] [address] (BEAKER) (test code = [facility], 153) 41936: Senior It Security Analyst/Techni aaron ID = [id number] for AHMET CASTELLANOS COMPREHENSIVE METABOLIC [id number] 04:31:00 Test Item Value Reference Range Interpretation [...] S NOT APPLICABLE FOR DIALYSIS PATIEN TS. Senior It Security Analyst ID - SANDRA WPOCT-GLUCOSE [id number] 00:14:00 Test Item Value Reference Range Interpretation Comments POC-GLUCOSE METER 106 mg/dL 70-110 : TESTED A T [facility] [address] (BEAKER) (test code = [facility], 1538) 75937: Senior It Security Analyst/Techni aaron ID = [id number] for UE COSME, AHMET POCT-GLUCOSE [id number] 19:00:00 Test Item Value Reference Range Interpretation Comments POC-GLUCOSE METER 111 mg/dL 70-110 H : TESTED A T [facility] [address] (BEAKER) (test code = [facility], 1538) 55093: Senior It Security Analyst/Techni aaron ID = [id number] for CO RTEZ, JOSY POCT-GLUCOSE [id number] 17:05:00 Test Item Value Reference Range Interpretation Comments POC-GLUCOSE METER 101 mg/dL 70-110 : TESTED A T [facility] [address] (BEAKER) (test code = [facility], 1538) 01939: Senior It Security Analyst/Techni aaron ID = [id number] for CO RTEZ, JOSY [id number] 17:03:00 Test Item Value Reference Range Interpretation Comments Potassium (test code = 3.9 meq/L 3.5-5.1 2823-3) DORI (test code = DORI) Senior It Security Analyst ID - BS Lab Interpretation (test Normal code = 90575-3) [facility]2020-[facility] 17:03:00 Test Item Value Reference Range Interpretation Comments POTASSIUM (BEAKER) (test code = 3.9 meq/L 3.5-5.1 379) Senior It Security Analyst ID - BSBlood Culture - Routine (Right Venipuncture)2019-06-05 10:00:00 Test Item Value Reference Range Interpretation Comments Result (test code = No growth in 5 days 6463-4) [facility]BLOOD [id number] 10:00:00 Test Item Value Reference Range Interpretation Comments CULTURE (BEAKER) (test No growth in 5 days code = 1095) Basic Metabolic [id number] 06:28:00 Test Item Value Reference Range Interpretation Comments Sodium (test code = 145 meq/L 856-389 3142-2) Potassium (test code = 3.0 meq/L 3.5-5.1 L 2823-3) Chloride (test code = 101 meq/L 98-107 2075-0) CO2 (test code = 38 meq/L 22-29 H 2028-9) BUN (test code = 28 mg/dL 7-21 H 3094-0) Creatinine (test code 0.87 mg/dL 0.57-1.25 = 2160-0) Glucose (test code = 110 mg/dL 70-105 H 2345-7) Calcium (test code = 7.9 mg/dL 8.4-10.2 L 16203-7) EGFR (test code = 88 mL/min/1.73 [place] [address]-9) NOT ACCURATE CREATININE CLEARANCE IN PREDICTING GLOMERULAR FILTRATION RATE . ESTIMATED GFR I S NOT APPLICABLE FOR DIALYSIS PATIENTS. DORI (test code = DORI) Senior It Security Analyst ID - PIAYA L Lab Interpretation Abnormal (test code = 12133-1) [facility]BASIC [facility]OLIC [id number] 06:28:00 Test Item Value Reference Range Interpretation [...] S NOT APPLICABLE FOR DIALYSIS PATIEN TS. Senior It Security Analyst ID - PIAYA LPOCT-GLUCOSE [id number] 06:13:00 Test Item Value Reference Range Interpretation Comments POC-GLUCOSE METER 119 mg/dL 70-110 H : TESTED A T [facility] 67[address] (BEAKER) (test code = [facility], 1538) 11756: Senior It Security Analyst/Techni aaron ID = [id number] for UE COSME, AHMET BLOOD [id number] 03:01:00 Test Item Value Reference Range Interpretation Comments CULTURE ([employer]) (test No growth in 5 days code = 1095) POCT-GLUCOSE [id number] 00:16:00 Test Item Value Reference Range Interpretation Comments POC-GLUCOSE METER 92 mg/dL 70-110 : TESTED A T [facility] 67[address] ([place]) (test code = [facility], 1538) 44637: Senior It Security Analyst/Techni aaron ID = [id number] for UEMA RU, AHMET POCT-GLUCOSE [id number] 17:55:00 Test Item Value Reference Range Interpretation Comments POC-GLUCOSE METER 104 mg/dL 70-110 : TESTED A T [facility] 67[address] ([place]) (test code = [facility], 1538) 00005: Senior It Security Analyst/Techni aaron ID = [id number] for AN GULO, GEM FL, ESOPH, SWALLOW FUNCTION, WITH CINE OR [id number] 15:08:00Reason for exam:->dysphagiaFINAL REPORT EXAMINATION: Modified barium [...] date for further description. Signed: Fredi Lucas Verified Date/Time: 06/04/2019 15:08:42 Reading Location: [address] Transitional Reading Room [place] esoph swallow funct with cine [id number] 15:08:00 Interface, External Ris In - 06/09/2019 4:56 PM CDTFINAL REPORT EXAMINATION:Modified barium swallow study INDICATION: Dysphagia. COMPARISON: Modified [...] date for further description. Signed: Fredi Lucas Verified Date/Time: 06/04/2019 15:08:42 Reading Location: [address] Transitional Reading Room Electronically signed by: FREDI LUCAS MDon 06/04/2019 03:08 [facility] [id number] 11:56:00 Test Item Value Reference Range Interpretation Comments POC-GLUCOSE METER 111 mg/dL 70-110 H : TESTED A T [facility] 67[address] (BEAKER) (test code = [facility], 1538) 30008: Senior It Security Analyst/Techni aaron ID = [id number] for AN GEM CUMMINGS POCT-GLUCOSE [id number] 06:18:00 Test Item Value Reference Range Interpretation Comments POC-GLUCOSE METER 110 mg/dL 70-110 : TESTED A T [facility] [address] (BEAKER) (test code = [facility], 1538) 70476: Senior It Security Analyst/Techni aaron ID = [id number] for ELIDIA VALDES COMPREHENSIVE METABOLIC [id number] 05:51:00 Test Item Value Reference Range Interpretation [...] S NOT APPLICABLE FOR DIALYSIS PATIEN TS. Senior It Security Analyst ID - ELISSA MCBC with platelet count + automated [id number] 05:29:00 Test Item Value Reference Range Interpretation Comments WBC (test code = 6690-2) 13.3 3.5- 10.5 K/L H RBC (test code = 789-8) 4.12 4.63- 6.08 M/L L MCHC (test code = 786-4) 30.3 32.3- 36.5 GM/DL L Hematocrit (test code = 4544-3) 35.6 % 40.1-51 L MCV (test code = 787-2) 86.4 fL 79-92.2 MCH (test code = 785-6) 26.2 pg 25.7-32.2 RDW (test code = 788-0) 20.1 % 11.6-14.4 H Platelets (test code = 777-3) 240 150- 450 K/CU MM MPV (test code = 24938-2) 12.3 fL 9.4-12.4 nRBC (test code = 413) 0 0- 0 /100 WBC % Neutros (test code = 429) 71 % % Lymphs (test code = 430) 16 % % Monos (test code = 431) 9 % % Eos (test code = 432) 3 % % Baso (test code = 437) 1 % # Neutros (test code = 670) 9.45 1.78- 5.38 K/L H # Lymphs (test code = 414) 2.08 1.32- 3.57 K/L # Monos (test code = 415) 1.24 0.30- 0.82 K/L H # Eos (test code = 416) 0.43 0.04- 0.54 K/L # Baso (test code = 417) 0.07 0.01- 0.08 K/L Immature Granulocytes-Relative 0 % 0-1 (test code = 2801) Lab Interpretation (test code = Abnormal 25244-1) [facility] W/PLT COUNT & AUTO [id number] 05:29:00 Test Item Value Reference Range Interpretation [...] (BEAKER) (test code = 2801) U/S, ABDOMINAL, [id number] 04:00:00Abdomen limited area? Add comment if clarification [...] Signed: Reji Tyler MDReport Verified Date/Time:06/04/2019 04:00:37 US abdomen [id number] 04:00:00 Interface, External Ris In - 06/04/2019 4:02 AM CDTFINAL REPORT History: Elevated LFTs Abdominal ultrasound dated 06/04/2019 Comparison: 03/20/2019 Comment: Real-time transabdominal ultrasound of the right upper quadrant abdomen was performed. Liver: 14.1 cm , normal. Normal echogenicity. No focal lesions. Gallbladder: No gallstones. No gallbladder wall thickening. No perocholecystic fluid.. No sonographic Jonas's sign. Biliary tree: No intrahepatic ductal dilatation. CBD: 5mm. MPV: 8 mm Pancreas: Unremarkable. Right kidney: 11.1 x 6.2 x 5.5 cm. Normal echogenicity. No ascites is present in the abdomen. The visualized abdominal aorta is normal in caliber. The IVC and Hepatic veins are patent. Impression: No ultrasound abnormality to explain the patient's elevated LFTs.Signed: Reji Tyler Verified Date/Time: 06/04/2019 04:00:37 [facility] [id number] 23:50:00 Test Item Value Reference Range Interpretation Comments POC-GLUCOSE METER 115 mg/dL 70-110 H : TESTED A T [facility] 6720 (BEAKER) (test code = [facility], 1538) 97276: Senior It Security Analyst/Techni aaron ID = [id number] for CHANIELIDIA MACDONALD POCT-GLUCOSE [id number] 18:03:00 Test Item Value Reference Range Interpretation Comments POC-GLUCOSE METER 126 mg/dL 70-110 H : TESTED A T [facility] 67[address] (BEAKER) (test code = [facility], 1538) 46375: Senior It Security Analyst/Techni aaron ID = [id number] for CHAD, ALAN LIZETTE [id number] 15:27:00 Test Item Value Reference Range Interpretation Comments Ammonia (test code = 82 18- 72 mol/L H 92405-4) DORI (test code = DORI) Senior It Security Analyst ID - BS Lab Interpretation (test Abnormal code = 69192-6) [facility]2020-[facility] 15:27:00 Test Item Value Reference Range Interpretation Comments AMMONIA (BEAKER) (test code = 348) 82 mol/L 18-72 H Senior It Security Analyst ID - BSMRSA [id number] 12:47:00 Test Item Value Reference Range Interpretation Comments Result (test code = 6463-4) No MRSA isolated [facility] HospitalMR[facility] [id number] 12:47:00 Test Item Value Reference Range Interpretation Comments CULTURE (BEAKER) (test code No MRSA isolated = 1095) POCT-GLUCOSE [id number] 12:25:00 Test Item Value Reference Range Interpretation Comments POC-GLUCOSE METER 123 mg/dL 70-110 H : TESTED A T [facility] 6720 (BEAKER) (test code = [facility], 1538) 79133: Senior It Security Analyst/Techni aaron ID = [id number] for ALAN BONILLA POCT-GLUCOSE [id number] 06:32:00 Test Item Value Reference Range Interpretation Comments POC-GLUCOSE METER 106 mg/dL 70-110 : TESTED A T [facility] 6720 (BEAKER) (test code = [facility], 1538) 52633: Senior It Security Analyst/Techni aaron ID = [id number] for ELIDIA VALDES [id number] 06:13:00 Test Item Value Reference Range Interpretation Comments Magnesium (test code = 2.2 mg/dL 1.6-2.6 Speci men 86769-8) slightly hemolyzed DORI (test code = DORI) Senior It Security Analyst ID - BS Lab Interpretation Normal (test code = 75175-7) [facility]UM2020-04-07 06:13:00 Test Item Value Reference Range Interpretation Comments MAGNESIUM (BEAKER) 2.2 mg/dL 1.6-2.6 Specimen slightly (test code = 627) hemolyzed Senior It Security Analyst ID - BSCOMPREHENSIVE METABOLIC [id number] 06:13:00 Test Item Value Reference Range Interpretation [...] S NOT APPLICABLE FOR DIALYSIS PATIEN TS. Senior It Security Analyst ID - BSCBC W/PLT COUNT & AUTO [id number] 05:58:00 Test Item Value Reference Range Interpretation [...] PERCENT (BEAKER) (test code = 2801) POCT-GLUCOSE [id number] 00:22:00 Test Item Value Reference Range Interpretation Comments POC-GLUCOSE METER 133 mg/dL 70-110 H : TESTED A T [facility] 6720 (BEAKER) (test code = [facility] Enrike [facility], 1538) 78765: Senior It Security Analyst/Techni aaron ID = [id number] for ELIDIA VALDES POCT-GLUCOSE [id number] 18:09:00 Test Item Value Reference Range Interpretation Comments POC-GLUCOSE METER 129 mg/dL 70-110 H : TESTED A T [facility] 6720 (BEAKER) (test code = [facility], 1538) [address]: Senior It Security Analyst/Techni aaron ID = [id number] for DE NNIS, [place] BASIC METABOLIC [id number] 16:10:00 Test Item Value Reference Range Interpretation [...] S NOT APPLICABLE FOR DIALYSIS PATIEN TS. Senior It Security Analyst ID - BSPOCT-GLUCOSE [id number] 12:41:00 Test Item Value Reference Range Interpretation Comments POC-GLUCOSE METER 120 mg/dL 70-110 H : TESTED A T [facility] 6720 (BEAKER) (test code = [facility], 1538) [address]: Senior It Security Analyst/Techni aaron ID = [id number] for DE NNIS, RYAN Blood gas, [id number] 08:24:00 Test Item Value Reference Range Interpretation Comments pH, Arterial (test code = 2744-1) 7.57 7.35-7.45 H pCO2, Arterial (test code = 50 35- 45 mmHg H 2018-8) pO2, Arterial (test code = 68 80- 90 mmHg L 2703-7) O2 Sat, Arterial (test code = 95.6 % 96-97 L 2708-6) HCO3, Arterial (test code = 45 mmol/L 21-29 HH 1960-4) Base Excess, Arterial (test code 20.4 mmol/L -2-3 H = 1925-7) Patient Temperature (test code = 36.7 C 8310-5) FIO2 (test code = 1819) 21 % Lab Interpretation (test code = Abnormal 20514-3) [facility], [id number] 08:24:00 Test Item Value Reference Range Interpretation [...] (test code = 1819) 21.0 % POCT-GLUCOSE [id number] 08:22:00 Test Item Value Reference Range Interpretation Comments POC-GLUCOSE METER 143 mg/dL 70-110 H : TESTED A T [facility] 6720 (BEAKER) (test code = ILDA [place], 1538) [address]: Senior It Security Analyst/Techni aaron ID = [id number] for MS IBGENEVIEVE RojoISI ECG 12 [id number] 07:02:11Interface, External Ris In - 06/02/2019 7:02 AM CDTVentricular Rate 83 BPMAtrial Rate 76 BPMQRS Duration 122 msQ-T Interval 376 msQTC Calculation(Bazett) 441 msR [place] 9 degreesT [place] 168 degreesAtrial fibrillationLeft ventricular hypertrophy with QRS wideningNonspecific ST and T wave abnormalityAbnormal ECGWhen compared with ECG of 30-MAY-2019 19:25,No significant change was foundConfirmed by MD SANAZ, GETACHEW ([id number]) on 06/02/2019 7:02:10 [facility] 03:10:00 Test Item Value Reference Range Interpretation Comments MAGNESIUM (BEAKER) (test code = 1.9 mg/dL 1.6-2.6 627) Senior It Security Analyst ANGELI FLORES WCOMPREHENSIVE METABOLIC [id number] 02:30:00 Test Item Value Reference Range Interpretation [...] S NOT APPLICABLE FOR DIALYSIS PATIEN TS. Senior It Security Analyst ID - SANDRA WVancomycin level, [id number] 02:22:00 Test Item Value Reference Range Interpretation Comments Vancomycin Tr (test code = 32.2 ug/mL 10-20 4092-3) DORI (test code = DORI) Senior It Security Analyst ID - SANDRA W Lab Interpretation (test Abnormal code = 87062-6) [facility] HospitalVANCOMYCIN LEVEL, [id number] 02:22:00 Test Item Value Reference Range Interpretation Comments VANCOMYCIN TROUGH (BEAKER) (test 32.2 ug/mL 10.0-20.0 HH code = 522) Senior It Security Analyst ID - SANDRA WCBC W/PLT COUNT & AUTO [id number] 02:07:00 Test Item Value Reference Range Interpretation [...] PERCENT (BEAKER) (test code = 2801) POCT-GLUCOSE [id number] 23:29:00 Test Item Value Reference Range Interpretation Comments POC-GLUCOSE METER 93 mg/dL 70-110 : TESTED A T [facility] 6720 (BEAKER) (test code = [facility], 1538) 51882: Senior It Security Analyst/Techni aaron ID = [id number] for MSIB I, MNCEDISI POCT-GLUCOSE [id number] 18:01:00 Test Item Value Reference Range Interpretation Comments POC-GLUCOSE METER 80 mg/dL 70-110 : TESTED A T [facility] 6720 (BEAKER) (test code = [facility], 1538) 01781: Senior It Security Analyst/Techni aaron ID = [id number] for GEM MOREJON 2D Echo W/Doppler(CW/PW/Color)2019-06-01 17:21:41Ejection FractionSLEH ECHO HEARTLAB MKCKESSON CPACSInterface, External Ris In - 06/01/2019 5:21 PM C DTTransthoracic Echocardiography Report (TTE) Demographics Patient Name JOHN DELUNA Date of Study 06/01/2019 Gender Male Visit Number [id number] Race Unknown Room Number C724 Number Date of 1955 Referring Physician Ole Dominguez MD Age 63 year(s) 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 Amount - 2 mlHeight: 69 inches Weight: 73.94 kg (163 lbs) BSA: 1.89 m^2 BMI: 24.07 kg/m^2HR: 94 bpm BP: 135/70 mmHg Summary The left ventricle is chamber size (by vol index) is normal (male - LVED vol - 34-74ml/m2). All of the LVsegments contract normally . Septal motion is paradoxical post cardiac surgery. LVEF by Palumbo's method of disk assessment is normal (>60%) . Degree of diastolic dysfunction (LAP assessment) is inconclusive due to MV annuloplasty . A biologic tissue AoV prosthesis is visualized . A trace of aorticregurgitation. The prosthetic AoV appears well-seated with normal [...] LVED vol - 34-74ml/m2). Normal LV wall thickness. All of the LV segments contract normally . Global LV systolic function normal . LVEF by Palumbo's method of disk assessment is normal (>60%) . The LVEF was measured using Palumbo's bi-plane method of disk . LV endocardium is adequately visualized with IV ultrasound enhancing agent. Degree of diastolic dysfunction (LAP assessment) is inconclusive due to MV annuloplasty . Left Atrium LA size is severely enlarged (>48 ml/m2) . Right Ventricle RV is partially visualized. The right ventricular chamber size and systolic function appears within normal limits. Right Atrium RA cavity size is normal . Aortic Valve A biologic tissue AoV prosthesis is visualized . A trace of aortic regurgitation. The prosthetic AoV appears well-seated with normal functionby Doppler. AoV dimensionless obstructive index (DOI)) is 0.83 . Peak Grad 4.86mmHg ,Mean Grad 2.43mmHg . Mitral Valve MV annuloplasty ring is present . Trace mitral regurgitation. Acceptable MV inflow gradients s/p MV annuloplasty. Mean 5.16mmHg. Tricuspid Valve Unable to estimate peak systolic PA pressure; inadequate TR velocity signal. Pulmonic Valve Normal PV structure and function. Aorta Aortic root size (Sinus of Valsalva diameter) is mildly dilated. 3.8 cm. Pericardium No significant pericardial effusion is visualized. IVC/SVC/PA/PV/Pleural The estimated RA pressure by IVCdynamics 16-20mmHg . Chambers/Structures Left Atrium LA Volume: [...] Right Ventricle RVOT VTI: 14.02 cm Aorta AoRoot S of Isabell.: 3.79 cm Doppler/Quantitative Measurements Mitral Valve Mean Velocity: 1.01 m/s MeanGradient: 5.16 mmHg Area (continuity): 1.5 cm^2 MV VTI: 34.79 cm MV Jordin. Peak: 1.83 m/s Aortic Valve Peak Velocity: 1.1 m/s Mean Velocity: 0.71 m/s Peak Gradient: 4.86 mmHg Mean Gradient: 2.43 mmHg AV Area (continuity): 2.62 cm^2 AV VTI: 19.91 cm AV DVI: 0.83 LVOT Peak Velocity: 0.96 m/s Peak Gradient:3.65 mmHg Mean Velocity: 0.62 m/s Mean Gradient: 1.84 mmHg LVOT Diameter: 2.01 cm LVOT VTI: 16.43 cm LVOT Area: 3.17 cm^2 LVOT SV:52.11 ml LVOT CO: 4.9 l/min LVOT CI: 2.59 l/min/m^2[facility] HospitalPO[facility] 2019-06-01 12:05:00 Test Item Value Reference Range Interpretation Comments POC-GLUCOSE METER 77 mg/dL 70-110 : TESTED A T [facility] 6720 (BEAKER) (test code = [facility], 1538) 13265: Senior It Security Analyst/Techni aaron ID = [id number] for JUAN MILIANGEM BASIC METABOLIC [id number] 11:33:00 Test Item Value Reference Range Interpretation [...] S NOT APPLICABLE FOR DIALYSIS PATIEN TS. Senior It Security Analyst ID - SONIA [id number] 11:30:00 Test Item Value Reference Range Interpretation Comments Phosphorus (test code = 4.3 mg/dL 2.3-4.7 2777-1) DORI (test code = DORI) Senior It Security Analyst ID - SONIA F Lab Interpretation (test Normal code = 10296-3) [facility]PHOSPHORUS2020-04-05 11:30:00 Test Item Value Reference Range Interpretation Comments PHOSPHORUS (BEAKER) (test code = 4.3 mg/dL 2.3-4.7 604) Senior It Security Analyst ID - SONIA [id number] 11:30:00 Test Item Value Reference Range Interpretation Comments MAGNESIUM (BEAKER) (test code = 1.7 mg/dL 1.6-2.6 627) Senior It Security Analyst ID Sultana SCOTT FCBC W/PLT COUNT & AUTO [id number] 11:20:00 Test Item Value Reference Range Interpretation [...] PERCENT (BEAKER) (test code = 2801) POCT-GLUCOSE [id number] 07:42:00 Test Item Value Reference Range Interpretation Comments POC-GLUCOSE METER 82 mg/dL 70-110 : TESTED A T [facility] 6720 (BEAKER) (test code = [facility], [facility]8) 15217: Senior It Security Analyst/Techni aaron ID = [id number] for RAGL AND, LATOYA POCT-GLUCOSE [id number] 23:33:00 Test Item Value Reference Range Interpretation Comments POC-GLUCOSE METER 90 mg/dL 70-110 : TESTED A T [facility] 6720 (BEAKER) (test code = [facility], 1538) 02671: Senior It Security Analyst/Techni aaron ID = [id number] for RAGL AND, LATOYA POCT-GLUCOSE [id number] 18:34:00 Test Item Value Reference Range Interpretation Comments POC-GLUCOSE METER 83 mg/dL 70-110 : TESTED A T [facility] 6720 (BEAKER) (test code = [facility], 1538) 59093: Senior It Security Analyst/Techni aaron ID = [id number] for UMMU LO GEM POCT-GLUCOSE [id number] 18:27:00 Test Item Value Reference Range Interpretation Comments POC-GLUCOSE METER 88 mg/dL 70-110 : TESTED A T [facility] 6720 (BEAKER) (test code = [facility], 1538) [address]: Senior It Security Analyst/Techni aaron ID = [id number] for GEM MOREJON POCT-GLUCOSE [id number] 18:22:00 Test Item Value Reference Range Interpretation Comments POC-GLUCOSE METER 84 mg/dL 70-110 : TESTED A T [facility] 6720 (BEAKER) (test code = ILDA [facility] [facility], 1538) 40906: Senior It Security Analyst/Techni aaron ID = [id number] for ELIDIA BLACKWOOD Prothrombin time/[id number] 11:01:00 Test Item Value Reference Range Interpretation Comments Protime (test code = 17.8 11.9- 14.2 H 5902-2) seconds INR (test code = 1.5 <=5.9 6301-6) DORI (test code = DORI) Effective 07/24/2018: PT Reference Range ChangeNew: 11.9-14.2 Previous: 11.7-14.7 RECOMMENDED COUMADIN/WARFARIN INR THERAPY RANGESSTANDARD DOSE: 2.0-3.0 Includes: PROPHYLAXIS for venous thrombosis, systemic embolization; TREATMENT for venous thrombosis and/or pulmonary embolus.HIGH RISK: Target INR is 2.5-3.5 for patients wiht mechanical heart valves. Lab Interpretation Abnormal (test code = 70087-2) [facility] HospitalPROTHROMBIN TIME/[id number] 11:01:00 Test Item Value Reference Range Interpretation [...] INR is2.5-3.5 for patients wiht mechanical heart valves.Hepatitis panel, [id number] 09:24:00 Test Item Value Reference Range Interpretation Comments Hep A IgM (test code = Reactive Nonreactive A 22972-2) Hep B C IgM (test code = Nonreactive Nonreactive 72109-4) Hepatitis C Ab (test Nonreactive Nonreactive code = 73076-1) HBsAg Screen (test code Nonreactive Nonreactive = 5195-3) DORI (test code = DORI) Senior It Security Analyst ID - SONIA F Lab Interpretation (test Abnormal code = 51568-8) [facility] [place] HospitalHEPATITIS PANEL, [id number] 09:24:00 Test Item Value Reference Range Interpretation Comments HEPATITIS A IGM ANTIBODY (BEAKER) Reactive Nonreactive A (test code = 498) HEPATITIS B CORE IGM ANTIBODY Nonreactive Nonreactive (BEAKER) (test code = 645) HEPATITIS C ANTIBODY (BEAKER) Nonreactive Nonreactive (test code = 367) HEPATITIS B SURFACE ANTIGEN (2) Nonreactive Nonreactive (BEAKER) (test code = 2585) Senior It Security Analyst ID Sultana SCOTT FB-type Natriuretic Factor (BNP)2019-05-31 09:06:00 Test Item Value Reference Range Interpretation Comments BNP (test code = 19928-8) 1536 pg/mL 0-100 H DORI (test code = DORI) Senior It Security Analyst ID - ALMA W Lab Interpretation (test Abnormal code = 73319-1) [facility] HospitalB-TYPE NATRIURETIC FACTOR (BNP)2019-05-31 09:06:00 Test Item Value Reference Range Interpretation Comments B-TYPE NATRIURETIC PEPTIDE 1536 pg/mL 0-100 H (BEAKER) (test code = 700) Senior It Security Analyst ID Sultana MARQUEZ WCOMPREHENSIVE METABOLIC [id number] 09:02:00 Test Item Value Reference Range Interpretation [...] S NOT APPLICABLE FOR DIALYSIS PATIEN TS. Senior It Security Analyst ID Sultana RichardsVancomycin level, [id number] 08:59:00 Test Item Value Reference Range Interpretation Comments Vancomycin Rm (test 18.6 ug/mL code = 54931-2) DORI (test code = Reference Range: No DORI) NormalsOperator ID - ALMA Richards [facility] HospitalVANCOMYCIN LEVEL, [id number] 08:59:00 Test Item Value Reference Range Interpretation Comments VANCOMYCIN RANDOM (BEAKER) (test 18.6 ug/mL code = 523) Reference Range: No NormalsOperator ID Sultana MARQUEZ WCBC W/PLT COUNT & AUTO [id number] 08:43:00 Test Item Value Reference Range Interpretation [...] 0-1 PERCENT (BEAKER) (test code = 2801) Creatinine, random [id number] 05:47:00 Test Item Value Reference Range Interpretation Comments Creatinine, Ur 24.9 mg/dL (test code = 2161-8) DORI (test code = Reference Range: No DORI) NormalsOperator ID - EMILIE L [facility]odium[facility] random [id number] 05:47:00 Test Item Value Reference Range Interpretation Comments Sodium Urine (test 59 meq/L code = 2955-3) DORI (test code = Reference Range: No DORI) NormalsOperator ID - EMILIE Hudson [facility] HospitalUrea Nitrogen, random [id number] 05:47:00 Test Item Value Reference Range Interpretation Comments Urea Nitrogen, Ur 332 mg/dL (test code = 3095-7) DORI (test code = Reference Range: No DORI) NormalsOperator ID - EMILIE Hudson [facility] HospitalCREATININE, RANDOM [id number] 05:47:00 Test Item Value Reference Range Interpretation Comments CREATININE URINE (BEAKER) (test 24.9 mg/dL code = 375) Reference Range: No NormalsOperator ID - PIBECKY LSODIUM, RANDOM [id number] 05:47:00 Test Item Value Reference Range Interpretation Comments SODIUM URINE (BEAKER) (test code = 59 meq/L 243) Reference Range: No NormalsOperator ID - EMILIE LUREA NITROGEN, RANDOM URINE 2019-05-31 05:47:00 Test Item Value Reference Range Interpretation Comments UREA NITROGEN URINE (BEAKER) (test 332 mg/dL code = 538) Reference Range: No NormalsOperator ID - LCAYA LPOCT-GLUCOSE [id number] 00:03:00 Test Item Value Reference Range Interpretation Comments POC-GLUCOSE METER 89 mg/dL 70-110 : TESTED A T [facility] 6720 (BEAKER) (test code = IL[facility], 1538) 47[address]: Senior It Security Analyst/Techni aaron ID = [id number] for ELIDIA BLACKWOOD RAD, CHEST, 1 VIEW, NON [id number] 22:00:00Reason for exam:->Pt with noted OSH R [...] Reji Tyler MDReport Verified Date/Time: 05/30/2019 22:00:23 XR chest 1 view portable / [id number] 22:00:00Interface, External Ris In - 05/30/2019 10:02 PM CDTFINAL REPORT History: Right-sided effusion noted on outside [...] Reji Tyler MDReport Verified Date/Time: 05/30/2019 22:00:23 [facility]COM[facility] [id number] 21:22:00 Test Item Value Reference Range Interpretation [...] S NOT APPLICABLE FOR DIALYSIS PATIEN TS. Senior It Security Analyst ID - CDPPROTHROMBIN TIME/[id number] 21:14:00 Test Item Value Reference Range Interpretation [...] mechanical heart valves.CBC W/PLT COUNT & AUTO [id number] 21:08:00 Test Item Value Reference Range Interpretation [...] PERCENT (BEAKER) (test code = 2801) AFB culture + smear (non-sputum)2019-05-26 15:52:00 Test Item Value Reference Range Interpretation Comments Result (test code = No acid-fast bacilli 6463-4) isolated in 42 days AFB Smear (test code = No acid fast bacilli 63572-6) seen [facility]AFB [facility]ULTURE + SMEAR (NON-SPUTUM)2019-05-26 15:52:00 Test Item [...] code = 994) seen FUNGUS CULTURE + [id number] 16:19:00 Test Item Value Reference Range Interpretation Comments CULTURE (BEAKER) (test No fungus isolated in code = 1095) 28 days FUNGUS SMEAR (BEAKER) No fungi seen (test code = 1406) FUNGUS CULTURE + [id number] 16:19:00 Test Item Value Reference Range Interpretation Comments CULTURE (BEAKER) (test No fungus isolated in code = 1095) 28 days FUNGUS SMEAR (BEAKER) <1+ yeast (test code = 1406) FUNGUS CULTURE + [id number] 16:19:00 Test Item Value Reference Range Interpretation Comments CULTURE (BEAKER) (test No fungus isolated in code = 1095) 28 days FUNGUS SMEAR (BEAKER) <1+ yeast (test code = 1406) FUNGUS CULTURE + [id number] 16:19:00 Test Item Value Reference Range Interpretation Comments CULTURE (BEAKER) (test No fungus isolated in code = 1095) 28 days FUNGUS SMEAR (BEAKER) No fungi seen (test code = 1406) FUNGUS CULTURE + [id number] 16:19:00 Test Item Value Reference Range Interpretation Comments CULTURE (BEAKER) (test No fungus isolated in code = 1095) 28 days FUNGUS SMEAR (BEAKER) <1+ yeast (test code = 1406) RAD, CHEST, 2 [id number] 08:51:00Reason for Exam:->PLEURAL EFFUSIONFINAL REPORT EXAMINATION: PA [...] Hua Verified Date/Time: 05/09/2019 08:51:36 Reading Location: [employer] [facility] Reading Room [address] [place] [address] XR chest 2 [id number] 08:51:00Interface, External Ris In - 05/09/2019 8:53 AM CDTFINAL REPORT EXAMINATION: PA and lateral views of the chest. COMPARISON: 04/25/2019 CLINICAL HISTORY: Follow-up pleural effusion, status post VATS. DISCUSSION: The lungs are well inflated. Interval improvement in right basilar airspace [...] catheter partially visualized projecting over the left upperquadrant. IMPRESSION: Interval improvement in right lower lobe airspace disease with residual bulla or pneumatocele in the right lower chest. Stable small bilateral pleural effusions and probable reactive right pleural change. Signed: Fredi Hua Verified Date/Time: 05/09/2019 08:51:36 Reading Location: [employer] [facility] [address] [address] [facility] HospitalAF[facility] + SMEAR (NON-SPUTUM)2019-05-06 22:55:00 Test Item [...] fast bacilli (test code = 994) seen Fungus culture + [id number] 17:35:00 Test Item Value Reference Range Interpretation Comments Result (test code = <1+ Ana A 6463-4) albicans Fungus Smear (test code = No fungi seen 1406) Lab Interpretation (test Abnormal code = 27150-0) [facility] HospitalFUNGUS CULTURE + [id number] 17:35:00 Test Item Value Reference Range Interpretation Comments CULTURE (BEAKER) A <1+ Ana albicans (test code = 1095) FUNGUS SMEAR No fungi seen (BEAKER) (test code = 1406) RAD, CHEST, 1 VIEW, NON [id number] 08:25:00Reason for exam:->s/p R VATSShould this be [...] MDReport Verified Date/Time: 04/25/2019 08:25:05 Reading Location: [facility] Radiology Reading Room CBC W/PLT COUNT & AUTO [id number] 07:17:00 Test Item Value Reference Range Interpretation [...] 0-1 PERCENT (BEAKER) (test code = 2801) [id number] 06:30:00 Test Item Value Reference Range Interpretation Comments PHOSPHORUS (BEAKER) (test code = 2.6 mg/dL 2.3-4.7 604) Senior It Security Analyst ID Sultana PHAN [id number] 06:30:00 Test Item Value Reference Range Interpretation Comments MAGNESIUM (BEAKER) (test code = 1.7 mg/dL 1.6-2.6 627) Senior It Security Analyst ID Sultana PHAN LBASIC METABOLIC [id number] 06:30:00 Test Item Value Reference Range Interpretation [...] S NOT APPLICABLE FOR DIALYSIS PATIEN TS. Senior It Security Analyst ID Sultana PHAN LRAD, CHEST, 1 VIEW, NON [id number] 09:38:00Reason for exam:->s/p R VATSShould this be [...] IMPRESSION: 1. No significant interval change. Signed: Zoey, Aiden MDReport Verified Date/Time: 04/24/2019 09:38:07 Reading Location: [facility] Radiology Reading Room BASIC METABOLIC [id number] 06:26:00 Test Item Value Reference Range Interpretation [...] S NOT APPLICABLE FOR DIALYSIS PATIEN TS. Senior It Security Analyst ID Sultana PHAN LSpecimen slightly [id number] 06:19:00 Test Item Value Reference Range Interpretation Comments PHOSPHORUS (BEAKER) (test code = 3.3 mg/dL 2.3-4.7 604) Senior It Security Analyst ID - EMILIE [id number] 06:19:00 Test Item Value Reference Range Interpretation Comments MAGNESIUM (BEAKER) (test code = 1.8 mg/dL 1.6-2.6 627) Senior It Security Analyst ID - EMILIE LCBC W/PLT COUNT & AUTO [id number] 04:39:00 Test Item Value Reference Range Interpretation [...] FL, ESOPH, SWALLOW FUNCTION, WITH CINE OR [id number] 14:55:00Reason for exam:->dysphagiaFINAL REPORT Modified barium swallow exam with speech pathology service CLINICAL HISTORY: dysphagia IMPRESSION: Please see the speech pathology service report for details. Barium contrast of multiple consistencies is given to the patient to swallow. Fluoroscopic observation is performed during swallowing. Small aspiration on honey consistency. Fluoro time: 0.9 minutes Number of images: 19 Signed: Leonor Moncada Verified Date/Time: 04/23/2019 14:55:57 Reading Location: [address] [facility] , CHEST, 1 VIEW, NON [id number] 14:41:00Reason for exam:->s/p ct removalShould this be [...] MDReport Verified Date/Time: 04/23/2019 14:41:23 Reading Location: [facility] Radiology Reading Room RAD, CHEST, 1 VIEW, NON [id number] 09:12:00Reason for exam:->s/p R VATSShould this be [...] MDReport Verified Date/Time: 04/23/2019 09:12:53 Reading Location: [facility] Radiology Reading Room BASIC METABOLIC [id number] 05:25:00 Test Item Value Reference Range Interpretation [...] S NOT APPLICABLE FOR DIALYSIS PATIEN TS. Senior It Security Analyst ID - ELISSA [id number] 05:24:00 Test Item Value Reference Range Interpretation Comments Prealbumin (test code = 7 mg/dL 14-45 L 87254-5) DORI (test code = DORI) Senior It Security Analyst ID Sultana BOWERS M Lab Interpretation (test Abnormal code = 27307-7) [facility] HospitalPREALBUMIN2020-02-26 05:24:00 Test Item Value Reference Range Interpretation Comments PREALBUMIN (BEAKER) (test code = 586) 7 mg/dL 14-45 L Senior It Security Analyst ID - ELISSA [id number] 05:23:00 Test Item Value Reference Range Interpretation Comments PHOSPHORUS (BEAKER) (test code = 2.8 mg/dL 2.3-4.7 604) Senior It Security Analyst ID - ELISSA [id number] 05:23:00 Test Item Value Reference Range Interpretation Comments MAGNESIUM (BEAKER) (test code = 1.9 mg/dL 1.6-2.6 627) Senior It Security Analyst ID - ELISSA MCBC W/PLT COUNT & AUTO [id number] 04:58:00 Test Item Value Reference Range Interpretation [...] = 2801) RAD, CHEST, 1 VIEW, NON [id number] 10:13:00Reason for exam:->s/p R VATSShould this be [...] changes.Additional findings: None. Signed: JR Marek, Christie Sanz Verified Date/Time: 04/22/2019 10:13:43 Reading Location: [facility] Radiology Reading Room 10:13 AMBASIC METABOLIC [id number] 04:59:00 Test Item Value Reference Range Interpretation [...] S NOT APPLICABLE FOR DIALYSIS PATIEN TS. Senior It Security Analyst ID - ELISSA [id number] 04:57:00 Test Item Value Reference Range Interpretation Comments PHOSPHORUS (BEAKER) (test code = 2.7 mg/dL 2.3-4.7 604) Senior It Security Analyst ID - ELISSA [id number] 04:57:00 Test Item Value Reference Range Interpretation Comments MAGNESIUM (BEAKER) (test code = 1.9 mg/dL 1.6-2.6 627) Senior It Security Analyst ID - ELISSA MCBC W/PLT COUNT & AUTO [id number] 03:33:00 Test Item Value Reference Range Interpretation [...] 0-1 PERCENT (BEAKER) (test code = 2801) Anaerobic [id number] 17:25:00 Test Item Value Reference Range Interpretation Comments Result (test code = No anaerobes isolated 6463-4) [facility] [id number] 17:25:00 Test Item Value Reference Range Interpretation Comments CULTURE (BEAKER) (test No anaerobes isolated code = 1095) ANAEROBIC [id number] 17:24:00 Test Item Value Reference Range Interpretation Comments CULTURE (BEAKER) (test No anaerobes isolated code = 1095) ANAEROBIC [id number] 17:24:00 Test Item Value Reference Range Interpretation Comments CULTURE (BEAKER) (test No anaerobes isolated code = 1095) ANAEROBIC [id number] 17:23:00 Test Item Value Reference Range Interpretation Comments CULTURE (BEAKER) (test No anaerobes isolated code = 1095) ANAEROBIC [id number] 17:23:00 Test Item Value Reference Range Interpretation Comments CULTURE (BEAKER) (test No anaerobes isolated code = 1095) BASIC METABOLIC [id number] 12:47:00 Test Item Value Reference Range Interpretation [...] S NOT APPLICABLE FOR DIALYSIS PATIEN TS. Senior It Security Analyst ID Sultana SCOTT [id number] 12:46:00 Test Item Value Reference Range Interpretation Comments MAGNESIUM (BEAKER) 2.2 mg/dL 1.6-2.6 Specimen slightly (test code = 627) hemolyzed Senior It Security Analyst ID Sultana SCOTT FBASIC METABOLIC [id number] 05:36:00 Test Item Value Reference Range Interpretation [...] S NOT APPLICABLE FOR DIALYSIS PATIEN TS. Senior It Security Analyst ANGELI FLORES [id number] 05:32:00 Test Item Value Reference Range Interpretation Comments PHOSPHORUS (BEAKER) (test code = 3.4 mg/dL 2.3-4.7 604) Senior It Security Analyst ID - SANDRA [id number] 05:32:00 Test Item Value Reference Range Interpretation Comments MAGNESIUM (BEAKER) (test code = 2.0 mg/dL 1.6-2.6 627) Senior It Security Analyst ID - SANDRA WCBC W/PLT COUNT & AUTO [id number] 05:07:00 Test Item Value Reference Range Interpretation [...] = 2801) RAD, CHEST, 1 VIEW, NON [id number] 04:30:00Reason for exam:->s/p R VATSShould this be [...] MDReport Verified Date/Time: 04/21/2019 04:30:21 BASIC METABOLIC [id number] 16:21:00 Test Item Value Reference Range Interpretation [...] S NOT APPLICABLE FOR DIALYSIS PATIEN TS. Senior It Security Analyst ID - SONIA [id number] 15:52:00 Test Item Value Reference Range Interpretation Comments PHOSPHORUS (BEAKER) (test code = 2.7 mg/dL 2.3-4.7 604) Senior It Security Analyst ID - SONIA [id number] 15:52:00 Test Item Value Reference Range Interpretation Comments MAGNESIUM (BEAKER) (test code = 2.0 mg/dL 1.6-2.6 627) Senior It Security Analyst ID - SONIA FCBC W/PLT COUNT & AUTO [id number] 15:27:00 Test Item Value Reference Range Interpretation [...] PERCENT (BEAKER) (test code = 2801) POCT-GLUCOSE [id number] 12:28:00 Test Item Value Reference Range Interpretation Comments POC-GLUCOSE METER 104 mg/dL 70-110 : TESTED A T [facility] 6720 (BEAKER) (test code = [facility] [id number]: Senior It Security Analyst/Techni aaron ID = [id number] for JON ARCEO RAD, CHEST, 1 VIEW, NON [id number] 08:05:00Reason for exam:->s/p R VATSShould this be [...] mediastinum: Stable contours. Additional findings: None. Signed: Yonathan Garcia MDReport Verified Date/Time: 04/20/2019 08:05:30 Reading Location: [address] Neuro Reading Room BASIC METABOLIC PANEL [...] S NOT APPLICABLE FOR DIALYSIS PATIEN TS. Senior It Security Analyst ID - [id number] 04:57:00 Test Item Value Reference Range Interpretation Comments PHOSPHORUS (BEAKER) (test code = 3.9 mg/dL 2.3-4.7 604) Senior It Security Analyst ID - [id number] 04:57:00 Test Item Value Reference Range Interpretation Comments MAGNESIUM (BEAKER) (test code = 2.2 mg/dL 1.6-2.6 627) Senior It Security Analyst ID - DBCBC W/PLT COUNT & AUTO [id number] 03:45:00 Test Item Value Reference Range Interpretation [...] PERCENT (BEAKER) (test code = 2801) POCT-GLUCOSE [id number] 00:19:00 Test Item Value Reference Range Interpretation Comments POC-GLUCOSE METER 115 mg/dL 70-110 H : TESTED A T [facility] 6720 (BEAKER) (test code = ILDA [place], 1538) [id number]: Senior It Security Analyst/Techni aaron ID = [id number] for AR MS, SENORA FUNGUS CULTURE + [id number] 18:47:00 Test Item Value Reference Range Interpretation Comments CULTURE (BEAKER) (test No fungus isolated in code = 1095) 28 days FUNGUS SMEAR (BEAKER) No fungi seen (test code = 1406) FUNGUS CULTURE + [id number] 18:47:00 Test Item Value Reference Range Interpretation Comments CULTURE (BEAKER) (test No fungus isolated in code = 1095) 28 days FUNGUS SMEAR (BEAKER) No fungi seen (test code = 1406) FUNGUS CULTURE + [id number] 18:35:00 Test Item Value Reference Range Interpretation Comments CULTURE (BEAKER) (test No fungus isolated in code = 1095) 28 days FUNGUS SMEAR (BEAKER) No fungi seen (test code = 1406) [id number] 18:02:00 Test Item Value Reference Range Interpretation Comments PHOSPHORUS (BEAKER) (test code = 1.3 mg/dL 2.3-4.7 LL 604) Senior It Security Analyst ID Sultana SCOTT FBASIC METABOLIC [id number] 17:59:00 Test Item Value Reference Range Interpretation [...] S NOT APPLICABLE FOR DIALYSIS PATIEN TS. Senior It Security Analyst ID Sultana SCOTT [id number] 17:58:00 Test Item Value Reference Range Interpretation Comments MAGNESIUM (BEAKER) (test code = 2.1 mg/dL 1.6-2.6 627) Senior It Security Analyst ID Sultana SCOTT FCBC W/PLT COUNT & AUTO [id number] 17:41:00 Test Item Value Reference Range Interpretation [...] = 2801) RAD, CHEST, 1 VIEW, NON [id number] 09:28:00Reason for exam:->s/p R VATSShould this be [...] contours. Stable surgical changes.Additional findings: None. Signed: Yonathan GarciaMDReport Verified Date/Time: 04/19/2019 09:28:51 Reading Location: [address] Neuro Reading Room BASIC METABOLIC [id number] 04:18:00 Test Item Value Reference Range Interpretation [...] S NOT APPLICABLE FOR DIALYSIS PATIEN TS. Senior It Security Analyst ID - ELISSA [id number] 04:16:00 Test Item Value Reference Range Interpretation Comments MAGNESIUM (BEAKER) 1.8 mg/dL 1.6-2.6 Specimen slightly (test code = 627) hemolyzed Senior It Security Analyst ID - ELISSA [id number] 04:16:00 Test Item Value Reference Range Interpretation Comments PHOSPHORUS (BEAKER) 1.9 mg/dL 2.3-4.7 L Specimen slightly (test code = 604) hemolyzed Senior It Security Analyst ID - ELISSA MCBC W/PLT COUNT & AUTO [id number] 03:48:00 Test Item Value Reference Range Interpretation [...] PERCENT (BEAKER) (test code = 2801) POCT-GLUCOSE [id number] 00:35:00 Test Item Value Reference Range Interpretation Comments POC-GLUCOSE METER 104 mg/dL 70-110 : TESTED A T [facility] 6720 (BEAKER) (test code = ILDA [place], 1538) [address]: Senior It Security Analyst/Techni aaron ID = [id number] for [place] MS, NEEL Prepare Leuko-Red [id number] 23:54:00 Test Item Value Reference Range Interpretation Comments CROSSMATCH (test code = 2264) COMPATIBLE Unit ABO (test code = A Neg 3675053) UNIT NUMBER (test code = [id number] 934-0) Status (test code = 1175933) TX_TIMEINCHART Blood Bank Product (test code RED BLOOD CELLS = 2263) PRODUCT CODE (test code = [id number] 933-2) [facility] [id number] 19:39:00 Test Item Value Reference Range Interpretation [...] S NOT APPLICABLE FOR DIALYSIS PATIEN TS. Senior It Security Analyst ID - [id number] 19:37:00 Test Item Value Reference Range Interpretation Comments PHOSPHORUS (BEAKER) (test code = 1.8 mg/dL 2.3-4.7 L 604) Senior It Security Analyst ID - [id number] 19:37:00 Test Item Value Reference Range Interpretation Comments MAGNESIUM (BEAKER) (test code = 1.8 mg/dL 1.6-2.6 627) Senior It Security Analyst ID - DBPOCT-GLUCOSE [id number] 18:39:00 Test Item Value Reference Range Interpretation Comments POC-GLUCOSE METER 115 mg/dL 70-110 H : Notified RN/MD: (BEAKER) (test code = TESTED AT [facility] 4322 1797) [facility], [address]: Senior It Security Analyst/Techni aaron ID = [id number] for Renetta Guerrier CBC W/PLT COUNT & AUTO [id number] 18:15:00 Test Item Value Reference Range Interpretation [...] 0-1 PERCENT (BEAKER) (test code = 2801) Surgically obtained culture + gram [id number] 16:40:00 Test Item Value Reference Range Interpretation Comments Result (test code = 6463-4) No growth Gram Stain Result (test No organisms seen code = 1123) [facility] [id number] 16:40:00 Test Item Value Reference Range Interpretation Comments CULTURE (BEAKER) (test code No growth = 1095) GRAM STAIN RESULT (BEAKER) 1+ WBCs (test code = 1123) GRAM STAIN RESULT (BEAKER) No organisms seen (test code = 95037) SURGICALLY OBTAINED CULTURE + GRAM [id number] 16:40:00 Test Item Value Reference Range Interpretation Comments CULTURE (BEAKER) (test code No growth = 1095) GRAM STAIN RESULT (BEAKER) 1+ WBCs (test code = 1123) GRAM STAIN RESULT (BEAKER) No organisms seen (test code = 44716) SURGICALLY OBTAINED CULTURE + GRAM [id number] 16:40:00 Test Item Value Reference Range Interpretation Comments CULTURE (BEAKER) (test code No growth = 1095) GRAM STAIN RESULT (BEAKER) 1+ WBCs (test code = 1123) GRAM STAIN RESULT (BEAKER) No organisms seen (test code = 26096) SURGICALLY OBTAINED CULTURE + GRAM [id number] 16:40:00 Test Item Value Reference Range Interpretation Comments CULTURE (BEAKER) (test code No growth = 1095) GRAM STAIN RESULT (BEAKER) 1+ WBCs (test code = 1123) GRAM STAIN RESULT (BEAKER) No organisms seen (test code = 51126) SURGICALLY OBTAINED CULTURE + GRAM [id number] 16:40:00 Test Item Value Reference Range Interpretation Comments CULTURE (BEAKER) (test code No growth = 1095) GRAM STAIN RESULT (BEAKER) 1+ WBCs (test code = 1123) GRAM STAIN RESULT (BEAKER) No organisms seen (test code = 55443) POCT-GLUCOSE [id number] 11:57:00 Test Item Value Reference Range Interpretation Comments POC-GLUCOSE METER 126 mg/dL 70-110 H : Notified RN/MD: (YELITZA) (test code = TESTED AT [facility] 6720 1538) [facility], [address]: Senior It Security Analyst/Techni aaron ID = [id number] for Si mmshahana, Renetta RAD, CHEST, 1 VIEW, NON [id number] 10:13:00Reason for exam:->s/p R VATSShould this be performed at the bedside?->YesFINAL REPORT CLINICAL HISTORY: s/p R VATS TECHNIQUE: 1 view of the chest. [facility] IMPRESSION: The ETT and three right-sided chest tubes appear unchanged position. There is no pneumothorax. Right hemithorax pleural- parenchymal opacity is unchanged. Left lung base opacity and a small left pleural effusion are also unchanged. The cardiomediastinal silhouette is magnif ied by technique with sternotomy wires. Signed: Jenny Rosado MDReport Verified Date/Time: 04/18/2019 10:13:43 Reading Location: [facility] Radiology Reading Room POCT-GLUCOSE [id number] 06:07:00 Test Item Value Reference Range Interpretation Comments POC-GLUCOSE METER 136 mg/dL 70-110 H : TESTED A T [facility] 6720 (BEAKER) (test code = DOROTAJAVI [place], 1538) [address]: Senior It Security Analyst/Techni aaron ID = [id number] for Ed wards, Melbeta BASIC METABOLIC [id number] 03:23:00 Test Item Value Reference Range Interpretation [...] S NOT APPLICABLE FOR DIALYSIS PATIEN TS. Senior It Security Analyst ID - ELISSA [id number] 03:09:00 Test Item Value Reference Range Interpretation Comments PHOSPHORUS (BEAKER) (test code = 2.9 mg/dL 2.3-4.7 604) Senior It Security Analyst ID - ELISSA [id number] 03:09:00 Test Item Value Reference Range Interpretation Comments MAGNESIUM (BEAKER) (test code = 2.0 mg/dL 1.6-2.6 627) Senior It Security Analyst ID - ELISSA MBLOOD GAS, [id number] 02:53:00 Test Item Value Reference Range Interpretation [...] 40.0 % CBC W/PLT COUNT & AUTO [id number] 02:51:00 Test Item Value Reference Range Interpretation [...] PERCENT (BEAKER) (test code = 2801) POCT-GLUCOSE [id number] 00:31:00 Test Item Value Reference Range Interpretation Comments POC-GLUCOSE METER 121 mg/dL 70-110 H : TESTED A T [facility] 6720 (BEAKER) (test code = [facility], 1538) [address]: Senior It Security Analyst/Techni aaron ID = [id number] for NAYELY FRAIRE POCT-GLUCOSE [id number] 18:46:00 Test Item Value Reference Range Interpretation Comments POC-GLUCOSE METER 114 mg/dL 70-110 H : TESTED A T [facility] 6720 (BEAKER) (test code = [facility], 1538) [address]: Senior It Security Analyst/Techni aaron ID = [id number] for ALAN BONILLA BASIC METABOLIC [id number] 17:17:00 Test Item Value Reference Range Interpretation [...] S NOT APPLICABLE FOR DIALYSIS PATIEN TS. Senior It Security Analyst ID - BSSpecimen slightly [id number] 17:14:00 Test Item Value Reference Range Interpretation Comments PHOSPHORUS (BEAKER) (test code = 4.2 mg/dL 2.3-4.7 604) Senior It Security Analyst ID - [id number] 17:14:00 Test Item Value Reference Range Interpretation Comments MAGNESIUM (BEAKER) (test code = 2.1 mg/dL 1.6-2.6 627) Senior It Security Analyst ID - BSCBC W/PLT COUNT & AUTO [id number] 16:29:00 Test Item Value Reference Range Interpretation [...] (BEAKER) (test code = 2801) BLOOD GAS, [id number] 16:23:00 Test Item Value Reference Range Interpretation [...] (test code = 1819) 40.0 % POCT-GLUCOSE [id number] 13:26:00 Test Item Value Reference Range Interpretation Comments POC-GLUCOSE METER 94 mg/dL 70-110 : TESTED A T [facility] 6720 (BEAKER) (test code = [place], 1538) [address]: Senior It Security Analyst/Techni aaron ID = [id number] for [employer] FINCH Bronchial culture + gram [id number] 11:54:00 Test Item Value Reference Range Interpretation Comments Result (test code = 6463-4) No growth Gram Stain Result (test No organisms seen code = 1123) [facility] [id number] 11:54:00 Test Item Value Reference Range Interpretation Comments CULTURE (BEAKER) (test code No growth = 1095) GRAM STAIN RESULT (BEAKER) 1+ WBCs (test code = 1123) GRAM STAIN RESULT (BEAKER) No organisms seen (test code = 60961) Tissue [id number] 11:43:00 Test Item Value Reference Range Interpretation Comments Case Report (test code Surgical Pathology = 104) Report Case: [id number] Authorizing Provider: Fernando Andrews MD Collected: 04/14/2019 1654 Ordering Location: [facility] Received: 04/15/2019 0933 PERIOPERATIVE SERVICES Pathologist: Gay Puentes MD Specimens: A) - Pleura, PARIETAL PLEURA B) - Lung, Right Lower Lobe, Right lower lobe C) - Lung, Right Middle Lobe, Right middle lobe D) - Lung, Right Upper Lobe, Right upper lobe DIAGNOSIS (test code = v6cfwZYwCFOeg3egNQSgsLW 3220) uZzEwMzNcZnRuYmpcdWMxIH gpceIaJSpbe8IqU3WmMfToW FxhbnNpXGRlZmxhbmcxMDMz SME4vmIwSWYgWAzdGOZgCQy yMr1ptVAzbZaiFuSiJUXpf8 wodkRWblisvNw0d5otRUXbC aX8pKTmYGkeV6ebizUxnAJz PGXmMVr9vOfxUoSoRNNcn00 hbiBcZmNoYXJzZXQwIEFyaW NbY071w4mfd5qfkkYfkLZ9F OMlNZQ4HLtopfQdquO5RHiu bPMcHwZ4XNmgbeCfEHEeZ8M nRU5cRUmqdYWmXBSdH4sfBH LdCUvlYJDvHIgpoCNeEKD6k Xiyw8G5gTZpcUOkcTxeDxLp GlEmRQYCr5LcMSj6mNdmW9N fCMPiMhA6qSWwTKVsXIymUE MlXZOtugU1yB39JJfkeyW7y SIfz0Rua15cn584pD6kfJBt BXI8OFQzTNMqkQBkKKOlVPC 9QLYiaCTcG1o4ZeDbpYMrO4 I7CvNsyLIqW9V9PsWriENnA 5Y0IxCaeDTsVHFckOOsJz5y nYHvbAFpln4crv77KIO9w7S mdXgwOUB4UFE7IuJdMc4weS YyJDToZN4vOpEhaMEyDTUqz b90hRfyIAhohwMykL6fPiKo PY0ttWgub38eBUPkNO8igE7 vdq1yfxYsKThflGOnfDH3re veBEQ4BGIcwwRje3Iqi3ggC bHcaeWxW2trZ0LvZMQrODYu NFVyMyOzohRew4Tqv9LuoQU srCa8g6lgRQVvEOSupStyn6 zeWHA6DHIbN9I2nQCbk5mmX JreZUMicEN1hicxIMnrVWEu ynC4fgsdFRzsLNQddCY2oxo tHOqeMDWmGiR8abcdUIbuBR CdKLU4YCwuo592ICT2OGtvA mtwYWdlXHBnbmNvbnRccGdu ZGVjXHBsYWluXHBsYWluXGY hXYYeGbQpsOnrfYputX3vTs VjOqYxJXdqID9bRLXbB9kwg QWwXPUyDIYbL1dcPwYmtO9u aFxmMVxmczIwXHBhciBBLiB DNHECHlRaXHWSE1zRPNTIQJ JJRVRBTCBQTEVVUkEsIERFQ 40CUKpTEWEFG750DPDrrgJc ICAgLSBDSFJPTklDIEZJQlJ XY4tNSxLXKLSXBtaXJXXrXI BhciAgICAgLSBORUdBVElWR JHRX6VwSTDLADmKKK7SWYso YXJccGFyIEIuIExVTkcsIFJ YG5dJPOvQG5HGDHbHAkMuNT QJX14ZGMiHFWQRE517AIFgf iAgICAgLSBDSFJPTklDIEZJ SwKRR5sDUjAMKFJYFzbXECY hC8aIDUOAG8TKAJZIB0VRGD HVLmNLDF2XFHWSO51ePURkj qPaLLKrKSGOPP8NMPBKIlXY P7wXCGOxJ3sVRLWEZENMZJY EHfZFAjAHFpnOJpgfYT5XLC FJDBYNT19XQI4pqYVdDLJuM GPhCS2DK8ZWZYYDGODVQwSV OOxGS98LReTNEIWkgapsOFO fYg3tNWRGNmnfBvyPFUBoWS dDNGrFFJvURzZgFQPER28KY XdTLYEJD728WCWnanRdBCAo ULYZOTUZUumEGSPNEbYCU1v ORyBQTEVVUklUSVMuXHBhci AgICAgLSBORUdBVElWRSBGT 6BfICOHGOgEXW9CXB1xqIIq XHBhclxwYXJkXHBsYWluXGY wACCzEjNluPfleS9mHnQuPp XwNNyjOZ6hUNHbR5ixkYYxD RAiAICfH5kzKgVxhU8xyUwi MVxmczIwIEQuIExVTkcsIFJ RM6xXCAIIKLCMLMdDGhBhJI OZG15CSXaUXSJKF312BICxx lxxbFxwbGFpblxmMFxmczI0 XHBsYWluXGYxXGZzMjBcbGF uZzEwMzNcaGljaFxmMVxkYm GdTGNxBFhnH8jsNrHlDwCjL CAgICAgLSBDSFJPTklDIEZJ CzNYZ2qOGvZWTBOCIxwVTKP uXHBhciAgICAgLSBORUdBVE uHEXZDY6UlYTVHBEnHHR0BT D5mqDMgFSXvWIBkETzFTcfo KBBSIW7BHDtZZKXMPQPBBMt wbGFpblxmMlxmczIwXGxhbm atKCVlVRlwF9qlYgOhGYHvi SkiDjbpg5JgEGWpMKZpWjhn bjRiQPg0xoPvLV7TPECZP36 ZGuaLCW2UAZDQMWxMO5TNQV MgQUxURVJBVElPTlxwbGFpb lxmMVxmczIwXGxhbmcxMDMz MEkuL4mqFoEvEULyzVsiWHq ap8PxQQJdNNCdMellecXaJW 4boDehtR8lOqTcZrShEKsjD J1nKCJoS6nfoYPdQLIvCLKb M7plZqEddS5xjCooIMuawnV mXKJoodsxBVR8e7vliLUtRE NzdGUxODAwMFxhbnNpXGRlZ skvqntvAJGyWSD7odQmXFGr QXdvEINoGUueQj6nwOXfqCi tTxDkSVVof3cfegXNjpdkyK d0i7ecXGPdQeM6gVYwWMfrQ 4vproIcnGIuIBGkTUo1gL38 KYFyfR0ogIWiKEtalzKeZhT 6JOgsRNHhXjV0LEKxkXNmEB FaB3pgLISyIWccSKUtYRmzw VDvMWS5xXsko2M1fDUxhHJg mJxgFaMwHbCrTuCLy5UnCWs 0zBleE3QfQVZhKeE9bIBfZT SbWUjsFAXjHSKxmwQ7nA60A SzrsxC9lAXpy2Jew62sx556 aE5rbMNjGPE1MUKiJDGweUN jUBJeTJN2VCDkdISkU8txDO IdNJ2zawkrMHxeWEbvENNta HI3KLIiqIMfK8AgEEClYOvn VANkjkm5KvUuYy1bqKWmvNq rOHdpr4xjk2msjTLyFfe1KT AhIxHlUybsJWfay9Pwn6ioO SKaaz0yBCH3yOUavAfau2S1 sDFkMSWnlVYtGJLgAQ2fkPT vGAFpxO7mftovMJFdVhKbna hpZKXqjRmxucLkSk5zuFnqF BX1MQojO9kdzL5kZfQ1GMqa J8evrM0dIJw1QRtaTHOqkAD 6abM0OFAhyLAxP5PiiP3bWG HiCS6cxmb9a5aiQPU8SXspK HLrUxQ2tvH5CHXriVSxZLXz uCvsDIhbz507XCX3YcKzZJO ph9BtM2UdbVzfC16yuVvlO3 5gECGkyYmebH5gqMrirG0yR kQpTkLfHOmnpYolTM6dSBQe S1ouoUXhMQBkPVYfC8lhKmL ubK9azUmaTFwbmvHjNANsWa j7THWraADhFAXnJok4ZFGaW KFxN87teztbHEO3zB9yu1pu c7JbVSvdIFU0CLZeg87hEUv pucA0ISbiIz92LJwfVDO7BB mcBPO8kD== CPT Code(s) (test code x9gteSGkJOVesCWkAsUmYVW = 3357) uUTFzu8alJUCgtIHjXoRbUr NcZnRuYmpcdWMxXGRlZmYwe 3ptv310pSXoh5zrJDAhFeZ6 uGAnRGEprBCuX744p8rfi4c jfjEzcTA8YOAiIYV6ZPifeu UyjqE7DLtwlFCfSkP6JFgku xGkYLwmbwKzkzRqSao4RAPs S810ELG1qTrmg9wrGEE8QNX mRIMpSoDvOd7sgNFoS129NV PsGABZYPMnhOy2SVWthxRdd zKqlSFNk969G591s0ovCKUf noRljGjEqppyu9ftG829XLR hcGVydzEyMjQwXHBhcGVyaD R0MZUkSX9cdkkiLvLoBM5iu rwmEpNbAB9pmck8JzHxTX7u cmdiNzIwXGhlYWRlcnkwXGZ ks3PgedviEC4bE3Geg6Y9gH 9maXRcZGVmdGFiNzIwXGZvc e5siEFqIBhvm1UgYPC1hkI7 fJFtzCFsSWGyIL97Qgdtn3C qQfdcIYS6BVKvalKaf4Yyv7 qnCmFpyaZrJ4tgW1QiGKKyH WOiOCHfYfWtxmQka4Zfx9Zz sDTiyYi5t8cjHPEwNXRpbBa zj0afETA3PVYuO7L5uNHoi3 nnZIedJJLwxDA8njaeJBasB JCgzwZ8eeogDVxgYCZjcFL1 slhkNQcpMZJjAkJ4mlopLOg uDMPxRMA3QKirk501YQT2KL xzYmtwYWdlXHBnbmNvbnRcc GduZGVjXHBsYWluXHBsYWlu XGYwXGZzMjRccWxccGxhaW5 qTnXqLgZeWTwnMN1zPMRvM6 dxlASsLAHnGYBbN9fpAmHnx J9cdJtqGBbqzdRoEBz8LoH4 IFggNFxwYXJ9 CLINICAL HISTORY (test x4nruAViCFPgcIPrPoKpWGB code = 3356) kKTLpd3mvQOJibCOnMjJcCt NcZnRuYmpcdWMxXGRlZmYwe 6dav019eMEnu2psVSDgRjU9 wKUfBVXoqVYkJ116g8ffc0h wxfXanUV0CSHhFJT3XObzve TmrhF8LGpqmSWgQwY1SLabo nXqIZztmvNrphOdVxo9SRRe H094DGP3nWjuu3tcMZT3SDZ zSILdLkToFn7xrRYdQ333NR QnOSNKKHOxhAi4EHEollHsv cRsdAEOu761D141r1ufGEXu zqTvsAbEyezol4dmM761DJG hcGVydzEyMjQwXHBhcGVyaD A2ZZZvDQ8ahkrzIoMaMJ1gg kwxIcVgUG5uije4UgRxOZ8b cmdiNzIwXGhlYWRlcnkwXGZ gu1GxbadyFB5dN9Kdo2N2hN 9maXRcZGVmdGFiNzIwXGZvc l2weHZlGSibu6QrEUG3wbG0 tTIdxGXaYRRrBX10Vfchz4I tAzheDEH6TZXehxNmd9Oex7 wdYpTxuyZoH8fgY9CtBJHgX VDqHQZxDhFzldKtl9Cst6Pw nZGunZj5u0zxAIIhKCKztJv ik6lkYPL2ARZdI9N8vLWqf9 aaIUskSDFupIR3pfqzQHeuX RDgcwL3mfolBYfyMXLcjIC5 dtgdVSmzNRMoYoF5jimlTHt hICTaWXU0BHjyt579BHO5UU xzYmtwYWdlXHBnbmNvbnRcc GduZGVjXHBsYWluXHBsYWlu XGYwXGZzMjRccWxccGxhaW5 vLdEnFvEbCRnrHW8aRPDtK6 fklWWgUFZsSFIgR4alRdNzl D6cvLdvPXbytyBoZQDmxJod qMKnUTRzY6r2KssjLBY3 SPECIMEN SOURCE (test c5oxgDBpOVVodCQkFpJdQAN code = 3377) bXGUzd2cgMMCnqEZfUjXcQs NcZnRuYmpcdWMxXGRlZmYwe 1txr960cLMka1ulLZRtZjB6 vQGxMEVfaHAoL157v4lfh7t gbvRgpVB7DZGiQCV5IZhtuv MtidH7PRvnbSUoQdD3RZijd uHeUFnrgtNvemUhFhl3FERz D040CHQ0zKrqh5wsSPN0YOJ yNDNnWyRfWr6uzOOnY311WY QkZYKSAYLenAp4DWKfzfMcc jAtwFGSr555B315n6anYKWo okFnhOgQblsfa3lgG406MEJ hcGVydzEyMjQwXHBhcGVyaD M0SPJoLX4rdixeNsDnDM7cz murCoTnYV3rqvi9EyYnIU9f cmdiNzIwXGhlYWRlcnkwXGZ jx7MifgetWE3qF7Xtn4E7oO 9maXRcZGVmdGFiNzIwXGZvc r5khPFbFWabn2NnJOP2chR4 yQHsdBHmAEAgRD90Gzsvj1G xFyocAZQ1AFCvxmPop7Mwi4 cbQjGsknNoX0hcY0HxRGSuC HUdYLZfLgLrwnItw7Msf2Ib qJUcuCw5m6trMWRrSDVshPt ky5khBWF5IRLuU1D1vSPcp5 niIAyzOBGcwTL8jwqcMMvhB MQjbrG5lnzpGGgiNJCxfHI5 piavQMjpUFRmCcV5ibxpZPx yBICkWTY3ZZusa292FUT5LU xzYmtwYWdlXHBnbmNvbnRcc GduZGVjXHBsYWluXHBsYWlu XGYwXGZzMjRccWxccGxhaW5 mVmUzQhTvBFneXG0uOYKsD3 zsqHIkOMHtMPNaP5fpZxBtd P1paGolHYwouqLjAIYkQRBb HKAdZB9wEk1pIMZeLtfikfs qxFOdqO63IIOjgO5nKM9bXh 4gTHVuZywgcmlnaHQgbWlkZ KqyYSciJlUnFHCgWCn0qtpo QHQiY8y5ZCKwbMBcBOiqHrZ gXHBhcn0= GROSS DESCRIPTION u2dkyUOjKQHrhSGpCsGvYWZ (test code = 3366) rNVGes2vwLSAujBOhScEyFo NcZnRuYmpcdWMxXGRlZmYwe 1qku092iIDyd1yiHMEcYgQ3 oPXoZDIvxERmB511CCBiPHw pt3mgc2AzYLIgnLLkm7E6ZV FAiiqgpPy3bNjhU33sf7V6Y bqvV8jsWWUoSXLlK0NdTY2j HZQzPlu3RQD9XYY5EDRaIFR dF0SfGO5zOSTntZYvXGu7d1 byzExgGPGeWJE8w7tzNAdkh zPaLJ7mxv9szHg1t5qsgpCq RFBfYDFcpFVVQEOoF5IclJz xBs1uyBd6yYqkPvleHST1Xh e0FE9jsk85eek3pNnoXUIqc bciPyL6KTiiZANkbmpfUOr7 MFxtYXJnbDcyMFxtYXJncjc yMFxtYXJndDcyMFxtYXJnYj pyCGvaJXDtWYL1EDynf851E MN1SEequ0lyo4tjkAMiRyv8 DFXfDdPfAfchQVasp8Xtw2m mJCCmfg6gPAV5pRGynBefo2 S8nIIrUKMedZBqyuNoFQUbG gX8ZHgpBE4xta30EBIpLIF2 xa4rqGKowTixdhKklDCzZAt qY6EuPAEnl685CAJsQ4VlQH Tjv1F5spUdEkDhCGZnbLF5v zG2HGLeZYy0dNFchqN4xuTx mVMxH8sqbV61FlMcjNVzC6L qmA06WbJccDBhV0SiqZ04Oq QhzVEaA0IiaE01XxNdcFWrW PUyhOQuVs5paERyhDTdj3Zh eEKnUChgM38uo284GJKscgB oF0ygoHSnbovljXDuxwgyGU stayX4ZSt3fnUhzhjpsYzzk GFpblxmMVxmczIwXGxhbmcx UEOoZUciY6wgBySyJIMluZk wKZoae4AeJFDfXDYaYlIdFK 4kVaOzWFc9KDKvcB5lOb6bu UCmhV4ceORuSBtnOHU5uVVc OCFvEFRiLYIeKC99T8JcvxP zDExrPBBwHDOgdP0pCQ34cN JlciBhbmQgInBhcmlldGFsI HBsZXVyYSIgaXMgYSAxLjUg lGNpDxnagMJbZcEwV38lnA8 zjXnjkjNnByI7DW3dxKlbhq SovMAms87qoRYgUY5tzSAch Snas0KvFFZ4pGnleFPxewWq xgPzkuSiuDHsgVWvwRI2CCT rzL2jIFFpBIPurnweEMTtLz 5mSvBbVIu9IIFdcF4gSs2id BUtvW8eyKAsKLvbDBD2sVMt JCWzYDQbVFHiOJ47E0KktnC wUQidAAEuZZYotF5aXT00lU SasuOvqsPcWgZaW2x3AXema 3YhFVdaTnTuLQrzTGBdTS4c GUahUv9yRSvcHS3aXWXzZNJ bhmCxu86ka7OmtOBnFZDckx pnRIUpA9QpsEgcdYYmg4Zxt GFnaWMsIGZpYnJvbWVtYnJh sb29vuH3bTLcpRVhJArfaMF gJMoaVUMmyCftBZh8XHT5Cq 3cnSXpGNQwbwPURT4TJq3zM HBhclxwYXJccGFyZFxwbGFp rrhtXMfkpfC7AONaKEazFAV xXGZzMjBcbGFuZzEwMzNcaG ljaFxmMVxkYmNoXGYxXGxvY 2hcZjFcZnMyMCBDLiBSZWNl sLPcSNYfqdGxg1UvVHmgbcG sYWJlbGVkIHdpdGggdGhlIH GurInrcmEgbwDfLZ4dZKEyJ 1Pyf7Cxu02nmmByQwOuXSCa ZCAibHVuZywgcmlnaHQgbWl kZGxlIGxvYmUiIGlzIGEgMy 82KPedPJ10FQapSQ2iFGVaU MQojxExs68hy1WakUSxMOGy vyrmYxguif1vUQ7hazJnk0T hNHYfp4W4VFayc3fjX3fpmX DcSQ17cJGjfPmxh9LszBh9t GVkIGluIEMxLiBccGFyXHBh ciBELiBSZWNlaXZlZCBpbiB iw3CqWEcslpIcWHLfvCJnBO dpdGggdGhlIHBhdGllbnQnc vTbHM0dZGDmQ3Ajt4Kpq60z bnVtYmVyIGFuZCAicmlnaHQ kfIWjUQOixD9nCKQliDUqPV AyLjMgeCAwLjcgeCAwLjIgY 47rnXBhAQGhtcktIpgsyq5f DC4vtgHrz6UuQIThx0V0TBj it2hmC2cxwLByWH04lKYifG ohz7GgxGa5mJMyPGclULPlG oHQDX7dglBcsHNfnX== MICROSCOPIC l4vikFKjYJUlrAEyTxItFGS DESCRIPTION (test code rBIScv8vnHNKpgCSkXmSaFl = 3371) NcZnRuYmpcdWMxXGRlZmYwe 5hgv235aMCle4ngBEFgOtG5 cAHfLCGhuBFdN232y8dnx7o alcCxoTH0MQYsTAT7PUzdsm LxhbD8QFbjtQPbRdY4XXopc zYhFPrpzfDyhsQoZmo0EEYu S454LEF6kNxsd3aiEXT9RNQ yPZVeTcKbYd9bnZMqW594FT VtSFNINKYrfWo1GPOwaxOry nTamPTXn725Y083c5ebROCg hhEtlNgMuhjen1vuA674COA hcGVydzEyMjQwXHBhcGVyaD Q4FJBlUC8rxyiyFvPxAI6vl yqnPxPqLP8ymfn2NeDvAK6a cmdiNzIwXGhlYWRlcnkwXGZ uu0HcrhoeAG9oL6Ths8A7nX 9maXRcZGVmdGFiNzIwXGZvc y4zuJBuPKplj9DbUQM1dvU0 cRKdsNCfIUCaZI23Fkxpb0G vVcxhZZA4KHJbzgJgn6Mxl8 imHaGtzbDlV1cvD7MzEHMjT KQsZPVfAqYwvcOob9Etn8Df dMEwuHr1r6jtEZVzADIuqWt yi9jeCYL0GQGxT0B4iNWau2 dtFUybBPJatXS6nezuLUbpK QQzrkV4botvCDrcINHqvAU7 pgufFXvaLKEeSmG2bwsjAGr fPDVzNXT6BWhjo400FMX6DZ xzYmtwYWdlXHBnbmNvbnRcc GduZGVjXHBsYWluXHBsYWlu XGYwXGZzMjRccWxccGxhaW5 qWoQhIiLrBSdsNP5yXOWhS6 ocoQRxFAYfEFYfV7fyLuUfc Z1tdQbcJHffwpUwAAJfcjRw cu3tUF8axUUjpH== Gross assessment was [facility] performed at ([facility], code = 2777) Department of Pathology, [address] [place] [id number], Technical component [facility] was performed at ([facility], code = 2778) Department of Pathology, [address] [place] [id number], Professional component [facility] was performed at ([facility], code = 2779) Department of Pathology, [address] [place] [id number], [place] HospitalTISSUE [id number] 11:43:00Surgical Pathology Report Case: [id number] Authorizing Provider: Fernando Andrews MD Collected: 04/14/2019 1654 Ordering Location: [facility] Received: 04/15/2019 0933 PERIOPERATIVE SERVICES Pathologist: Gay Puentes MD Specimens: A) - Pleura, PARIETAL PLEURA B) -Lung, Right Lower Lobe, Right lower lobe C) - Lung, Right Middle Lobe, Right middle lobe D) - Lung,Right Upper Lobe, Right upper lobe A. PLEURA, RIGHT, PARIETAL PLEURA, DECORTICATION: - [...] DIAGNOSTIC ALTERATION. Signing Pathologist Direct Phone Line: [phone], right.A. Pleura. B. Lung, right [...] tissue, which is entirely submitted in D1. PA/ewPerformed.[facility], Department of Pathology, [address] [place] [address], [facility], Department of [facility]ology, [address] [place] [address], [facility], Department of Pathology, [address] [place] [address], FRL, CHEST, 1 VIEW, NON [id number] 10:13:00Reason for exam:->s/p R VATSShould this be [...] cm proximal to the shruthi. Signed: Fredi Lucaseport Verified Date/Time: 04/17/2019 10:13:50 Reading Location: [facility] Radiology Reading Room POCT- GLUCOSE [id number] 05:44:00 Test Item Value Reference Range Interpretation Comments POC-GLUCOSE METER 99 mg/dL 70-110 : TESTED A T [facility] 6720 (BEAKER) (test code = [facility] [id number]: Senior It Security Analyst/Techni aaron ID = [id number] for ARHU CLARKE MISTRY BASIC METABOLIC [id number] 04:57:00 Test Item Value Reference Range Interpretation [...] S NOT APPLICABLE FOR DIALYSIS PATIEN TS. Senior It Security Analyst ID - [id number] 04:36:00 Test Item Value Reference Range Interpretation Comments PHOSPHORUS (BEAKER) (test code = 3.8 mg/dL 2.3-4.7 604) Senior It Security Analyst ID - [id number] 04:36:00 Test Item Value Reference Range Interpretation Comments MAGNESIUM (BEAKER) (test code = 2.3 mg/dL 1.6-2.6 627) Senior It Security Analyst ID - [id number] 04:08:00 Test Item Value Reference Range Interpretation Comments PTT (test code = 02381-4) 41.6 22.5- 36.0 seconds H Lab Interpretation (test code = Abnormal 04484-4) [facility] 04:08[facility]00 Test Item Value Reference Range Interpretation Comments PARTIAL THROMBOPLASTIN TIME 41.6 seconds 22.5-36.0 H (BEAKER) (test code = 760) PROTHROMBIN TIME/[id number] 04:07:00 Test Item Value Reference Range Interpretation [...] for patients wiht mechanical heart valves.BLOOD GAS, [id number] 04:02:00 Test Item Value Reference Range Interpretation [...] 40.0 % CBC W/PLT COUNT & AUTO [id number] 03:56:00 Test Item Value Reference Range Interpretation [...] 0-1 PERCENT (BEAKER) (test code = 2801) Hemoglobin and [id number] 00:46:00 Test Item Value Reference Range Interpretation Comments Hemoglobin (test code = 7.7 13.7- 17.5 GM/DL L 786-4) Hematocrit (test code = 23.6 % 40.1-51 L 4544-3) DORI (test code = DORI) Senior It Security Analyst ID - [id number] Lab Interpretation (test Abnormal code = 52013-3) [facility]MO[facility] AND [id number] 00:46:00 Test Item Value Reference Range Interpretation Comments HEMOGLOBIN (BEAKER) (test code = 7.7 GM/DL 13.7-17.5 L 410) HEMATOCRIT (BEAKER) (test code = 23.6 % 40.1-51.0 L 411) Senior It Security Analyst ID - [id number]-GLUCOSE [id number] 00:22:00 Test Item Value Reference Range Interpretation Comments POC-GLUCOSE METER 98 mg/dL 70-110 : TESTED A T [facility] 6720 (BEAKER) (test code = ILDA [place], 1538) [address]: Senior It Security Analyst/Techni aaron ID = [id number] for SAGA Y, SANDRA Prepare [id number] 23:54:00 Test Item Value Reference Range Interpretation Comments Unit ABO (test code = A Pos 1184554) UNIT NUMBER (test code = [id number] 934-0) Status (test code = 3272312) TX_TIMEINCHART Blood Bank Product (test code CRYOPRECIPITATE = 2263) PRODUCT CODE (test code = K6793N68 933-2) [facility] [id number] 23:54:00 Test Item Value Reference Range Interpretation Comments Unit ABO (test code = 2083136) A Pos UNIT NUMBER (test code = [id number] 934-0) Status (test code = 0023298) TX_TIMEINCHART Blood Bank Product (test code FFP = 2263) PRODUCT CODE (test code = P5699Y53 933-2) [facility]POCT[facility]SE [id number] 19:03:00 Test Item Value Reference Range Interpretation Comments POC-GLUCOSE METER 93 mg/dL 70-110 : TESTED A T [facility] 6720 (BEAKER) (test code = ILDA [place], 1538) [address]: Senior It Security Analyst/Techni aaron ID = [id number] for DRU MONTE BASIC METABOLIC [id number] 17:08:00 Test Item Value Reference Range Interpretation [...] S NOT APPLICABLE FOR DIALYSIS PATIEN TS. Senior It Security Analyst ID - [id number] 17:06:00 Test Item Value Reference Range Interpretation Comments PHOSPHORUS (BEAKER) 4.5 mg/dL 2.3-4.7 Specimen slightly (test code = 604) hemolyzed Senior It Security Analyst ID - BSCBC W/PLT COUNT & AUTO [id number] 16:39:00 Test Item Value Reference Range Interpretation [...] (BEAKER) (test code = 2801) BLOOD GAS, [id number] 16:16:00 Test Item Value Reference Range Interpretation [...] (test code = 1819) 40.0 % POCT-GLUCOSE [id number] 13:36:00 Test Item Value Reference Range Interpretation Comments POC-GLUCOSE METER 93 mg/dL 70-110 : TESTED A T [facility] 6720 (BEAKER) (test code = IL[place], 1538) 21499: Senior It Security Analyst/Techni aaron ID = [id number] for SHANNON GRANADOS MYLES Venous doppler arm, [id number] 10:57:26Ejection FractionSLEH ECHO HEARTLAB MKCKESSON CPACS Left Impression1. There is total deep venous obstruction in the brachial veins.2. There is partial deep venous obstruction in the subclavian and axillaryveins.3. There is no deep venous obstruction in the jugular, radial or ulnarveins.4. There is total superficial venous obstruction in the cephalic vein.5. The basilic vein could not be visualized due to a line placement. Conclusions Summary Venous duplex imaging and compression of the left upper extremity was performed. The veins were adequately visualized. The left deep venous system was positive with acute thrombosis. The left superficial venous system was positive with acute thrombus. Signature Velocities are measured in cm/s ; Diameters are measured in cm Interface, External Ris In - 04/16/2019 10:57 AM CSTPV LAB - Upper Extremities Veins Demographics Patient Name JOHN DELUNA Date of Study 04/15/2019 Age 63 Visit Number [id number] Gender Male Accession Number [id number] Date of 1955 Referring Yonathan Najera Room Number 7A05 Physician Nawaf, TANIA Drupal Programmer Aidee Ruggiero, RVT Interpreting Asia Tapia, Physician ProcedureType of Study: Veins: Upper Extremities Veins, VENOUS DOPPLER ARM, LEFT. Indications for Study:LUE swelling .Patient Status:CHRISSIE.Study Location:Portable.Technical Quality:Technically Difficult. - Results were reported to:DR CHUNG.Risk FactorsHistory of Disease+ +----+ +!Diagnosis !Date!Comments !+------ +----+ +!History/Ri sk Factors: !!CHF, AFIB, stroke, COPD, HTN !+ +----+ +ImpressionsLeft Impression1. There is total deep venous obstruction in the brachial veins.2. There is partial deep venous obstruction in the subclavian and axillaryveins.3. There is no deep venous obstruction in the jugular, radial or ulnarveins.4. There is total superficial venous obstruction in the cephalic vein.5. The basilic vein could not be visualized due to a line placement.Conclusions Summary Venous duplex imaging and compression of the left upper extremity was performed. The veins were adequately visualized. The left deep venous system was positive with acute thrombosis. The left superficial venous system was positive with acute thrombus. Signature Velocities are measured in cm/s ; Diameters are measured in [facility] HEMOGLOBIN AND [id number] 09:42:00 Test Item Value Reference Range Interpretation Comments HEMOGLOBIN (BEAKER) (test code = 8.0 GM/DL 13.7-17.5 L 410) HEMATOCRIT (BEAKER) (test code = 24.1 % 40.1-51.0 L 411) Senior It Security Analyst ID - [id number], CHEST, 1 VIEW, NON [id number] 06:37:00Reason for exam:->s/p R VATSShould this be [...] S NOT APPLICABLE FOR DIALYSIS PATIEN TS. Senior It Security Analyst ID - DBSpecimen slightly vhoekfjTWJZOFCFVY4436-62-62 04:26:00 Test Item Value Reference Range Interpretation Comments PHOSPHORUS (BEAKER) (test code = 5.1 mg/dL 2.3-4.7 H 604) Senior It Security Analyst ID - [id number] 04:26:00 Test Item Value Reference Range Interpretation Comments MAGNESIUM (BEAKER) (test code = 2.2 mg/dL 1.6-2.6 627) Senior It Security Analyst ID - [id number] 04:09:00 Test Item Value Reference Range Interpretation Comments PARTIAL THROMBOPLASTIN TIME 35.4 seconds 22.5-36.0 (BEAKER) (test code = 760) PROTHROMBIN TIME/[id number] 04:08:00 Test Item Value Reference Range Interpretation [...] mechanical heart valves.CBC W/PLT COUNT & AUTO [id number] 03:57:00 Test Item Value Reference Range Interpretation [...] 0-1 PERCENT (BEAKER) (test code = 2801) Calcium, [id number] 03:44:00 Test Item Value Reference Range Interpretation Comments Calcium, Ion (test code = 1993-) 1.09 mmol/L 1.12-1.27 L pH, Blood (test code = 58066-3) 7.44 Lab Interpretation (test code = Abnormal 43017-2) [facility] HospitalCALCIUM, [id number] 03:44:00 Test Item Value Reference Range Interpretation Comments CALCIUM IONIZED (BEAKER) (test 1.09 mmol/L 1.12-1.27 L code = 698) PH, BLOOD (BEAKER) (test code = 7.44 1810) BLOOD GAS, [id number] 03:44:00 Test Item Value Reference Range Interpretation [...] (test code = 1819) 40.0 % POCT-GLUCOSE [id number] 23:26:00 Test Item Value Reference Range Interpretation Comments POC-GLUCOSE METER 117 mg/dL 70-110 H : TESTED A T [facility] 6720 (BEAKER) (test code = IL[place], 1538) 56897: Senior It Security Analyst/Techni aaron ID = [id number] for NEEL DAVALOS MS CBC W/PLT COUNT & AUTO [id number] 23:13:00 Test Item Value Reference Range Interpretation [...] 0-1 PERCENT (BEAKER) (test code = 2801) Central [id number] 17:48:17Enoch Chung NP 04/15/2019 5:50 PMCentral LineDate/Time: 04/15/2019 5:48 PMPerformed by: Enoch Chung NPAuthorized by: Enoch Chung NP Consent: The proced ure was performed in an emergent situation.Site marked: the operative site was markedImaging studies: imaging studies available (Ultrasound)Required items: required blood products, implants, devices, and special equipment availablePatient identity confirmed: arm band, provided demographic data, hospital-assigned identification number and anonymous protocol, patient vented/unresponsiveTime out: Immediately prior to procedure a "time out" was called to verify the correct patient, procedure, equipment,forestry support specialist and site/side marked as required.Indications: vascular accessPreparation: skin preppedwith 2% chlorhexidineSkin prep agent dried: skin prep agent completely dried prior to procedureSterile barriers: all five maximum sterile barriers used - cap, mask, sterile gown, sterile gloves, and large sterile sheetHand hygiene: hand hygiene performed prior to central venous catheter insertionLocation details: right femoralSite selection rationale: Vascular access for blood and vasopressors suddenly lost, had to place line emergently for accessCatheter type: triple lumenCatheter size: 7 FrPre-procedure: landmarks identifiedUltrasound guidance: yesSterile ultrasound techniques: sterile gel and sterile probe covers were usedNumber of attempts: 1Successful placement: yesPost-procedure: line suturedAssessment: blood return through all ports and free fluid flowPatient tolerance: Patient tolerated the procedure well with no immediate complicationsImmediate Post-Procedure Note Date/Time: 04/15/2019 8:00 AMAssistants to the procedure: NonePre-procedure diagnosis: Hypovolemic ShockPost-procedure diagnosis: Hypovolemic shockProcedures Performed: Central LineSpecimens removed: NoneEstimated blood loss (mL): NoneComplications: NoneType of anesthesia: NoneGrafts or Implants: NoneCHI Elast[facility] HospitalBASI METABOLIC [id number] 16:33:00 Test Item Value Reference Range Interpretation [...] S NOT APPLICABLE FOR DIALYSIS PATIEN TS. Senior It Security Analyst ID - JOSE [id number] 16:29:00 Test Item Value Reference Range Interpretation Comments PHOSPHORUS (BEAKER) (test code = 5.0 mg/dL 2.3-4.7 H 604) Senior It Security Analyst ID - JOSE EBLOOD GAS, [id number] 16:18:00 Test Item Value Reference Range Interpretation [...] 45.0 % CBC W/PLT COUNT & AUTO [id number] 16:17:00 Test Item Value Reference Range Interpretation [...] = 2801) RAD, CHEST, 1 VIEW, NON [id number] 14:28:00Reason for exam:- >hemothoraxShould this be performed [...] Cruz Verified Date/Time: 04/15/2019 14:28:00 Reading Location: [facility] Radiology Reading Room SPIN/CONCENTRATION CHARGE 2019-04-15 14:00:00 Test Item Value Reference Range Interpretation Comments Concentration charged (test code = Done 2657) [facility] [id number] 14:00:00 Test Item Value Reference Range Interpretation Comments CONCENTRATION CHARGED (BEAKER) (test Done code = 2657) Thromboelastograph (TEG)2019-04-15 13:00:00 Test Item Value Reference Range Interpretation Comments TEG Activated Clotting Time (test 5.0 4.0- 7.0 minutes code = 33679-7) TEG Fibrinogen Activity (test 75.9 61.0- 73.0 degrees H code = 43103-9) TEG Platelet Aggregation (test 69.6 55.0- 65.0 MM H code = 17241-2) TEG Fibrinolysis (test code = 0.1 % 0-5 64687-3) TEG-H Activated Clotting Time 5.1 4.0- 7.0 minutes (test code = 1411) TEG-H Fibrinogen Activity (test 76.0 61.0- 73.0 degrees H code = 1412) TEG-H Platelet Aggregation (test 65.7 55.0- 65.0 MM H code = 1413) TEG-H Fibrinolysis (test code = 4.1 % 0-5 1414) Lab Interpretation (test code = Abnormal 79614-8) [facility] HospitalTHROMBOELASTOGRAPH (TEG)2019-04-15 13:00:00 Test Item Value Reference Range [...] (test 4.1 % 0.0-5.0 code = 1414) [id number] 11:47:00 Test Item Value Reference Range Interpretation Comments Case Report (test code Medical Cytology Report = 104) Case: [id number] Authorizing Provider: Fernando Andrews MD Collected: 04/14/2019 1548 Ordering Location: [facility] Received: 04/15/2019 0913 PERIOPERATIVE SERVICES Pathologist: Sean Piedra MD Specimen: Pleural, Right, Multi loculated pleural effusions DIAGNOSIS (test code = q8xuvDAsYZMns3aaKKYavOC 3220) uZzEwMzNcZnRuYmpcdWMxIH opbsYeSQvyj6HkL1IwKkOcU FxhbnNpXGRlZmxhbmcxMDMz GZP5pcJdXXDmGAyxGZAqGBt wPv2umAGuuTouHrEcQAQjs0 ssqqIHivfnxYb4s3npFIOhX fO1iPKjTJmbV2hqorSuhUQb SYKsNNp0eO93NLUqoP8tiPS vBEjvvcLvTjS6VBqpTMGuRa N8WSPchQLoLEYuB0epAVHaI AxkFTXmHEvfaWCtMYB2oSdv k2K3pRHwwZFheFkoQhMfIiN iOCBKp2QcRQj4pTchB5UcQJ EeTyP0uRAfWUHdGYfqVMUyE TKmynM4hX99QDcrwbD8zDDx d5Zzz98up048eF9ueYKsXDP 4CULzLFJluGJrCZVhILV0VC KkqJKwG7q5TvUndJVzV7Q9P sCdvQOfU0D8VcArjZPyO0D7 RgGcsNPoKDIbaDMwEf3kmPW owTIsxh3irq88UBA1c7NyqE vyACT4QNI1DrQrCk2owQSmM JUbSF5bZjEkuHOiAOOzdk16 aSkgKPleqrHvmW0oNqZlQYH kfXLoMJDtAU0ruOCwGRSbiX 5ucmxjXHBnYnJkcmhlYWRcc ZrcyqNoQv9ppWbePOR0JEzh U2dasU0hJbW7HUyaF2mvcA0 uKZi9ANwnyUE2KWDkrE6aKO 1yzunjq2tzToBtIJ8ekcwsa 0lnMuKkAJ1fuch8v8xgDjDq LZ7httton1tqNkRuBKrsEFQ ajseqDZRcs8EsxbjxVHVzo3 BgU0YjyWlkL19onWttH22gA VPziRzztP5zfOffcG5rUmGc ZnMyNFxxbFxwbGFpblxmMVx mczIwXGxhbmcxMDMzXGhpY2 dwObUmHXByiZqbLRpzf6JbU GYxXGZzMjAgUklHSFQgUExF RWJYLGYTHGWVIIYbO6uFU1M RJU4ZMGqcbHelBAPyTSSpZR 5MF6YEKVBABLFPVxSNGJrPZ 05BTkNZXHBhciAgICAgIFBS NUJQTAgNXI7TFFmzHmxWD4A yaRMbtLkursYdDWalp9AePA qmWVFxPH0ihOnvWBHuJK6tA NXsU4asvI9hfsn7RcFlUBBh YsB2OGHppfE6Hhf3FXPdLRj lp0ynl6JnOEGiUEj5bAnjXt UjETQdf6ufrtQeQvNzKFKcI VIfDTRplZAzI800n0cxq6ny gfDbqDM1YTPkOGJ1EEqnkwV kcuF8JJfokRByXtG4OUguko RnSZatbdWyftOjQcc8LXVqE 909NKE6zGxjq5qmJDG3QQDc EKWqOmZqCe8qaNXdC317ILG iCHPFJMFsvQj2BAWozvYwre XznNLSv197H557x0suLGPju rOfuVpHddjjb2twW763NIPt cGVydzEyMjQwXHBhcGVyaDE 5DTIvIQ3hhzopCZneHQdvDV QsxtM3PRJqtNVvE2MvOBKmA L9xsvcaHGU4NJzbVOXjEDZ9 ZwGxZTIej2Dazyf5VuEvpj9 tsx27ZTA9h2AprEicIPP3NA L1SiUnVi6jcNNaKMPqGI7fK aRlzOWgGJOxjd99oAdnXIin IOI3YZKccqHni1Opv0pfTqL izaUbF2qpC8RbZYDrIAQiJN QiUdNdzyTem2Odl9GmwNEmv Gf7e3fiTHGgKYNnfUrhr8op LJU8OBOjlMFcB5qtcG5mGRJ lLP3dwgjji7uwLYlwLWraUU DzaGO5nmT6DQVquVXsU9Mic S3dBBMmJEydYWGwbqc0YwQl Xn7izFVxmUwaJUugAtjaAHy lXHBnbmNvbnRccGduZGVjXH BsYWluXHBsYWluXGYwXGZzM jRccWxcbGFuZzEwMzNcaGlj dImyTUsoSwLlTFKeCNwgE3i cQiRiCfPcQvm4ECNkjYQtAM NsRwb8JWOslKDlHFHVpGemy W7sOECltUqzxQ3deIH3YPIf zyOvjLKGtM5mUTNIgM8dKvR 5AeJtRgP6XRNiJWtMRQKoeo 19 CPT Code(s) (test code h2lcqSIaCSMhmICuXiKjKGD = 3357) cCDQrp5heOJXlmCSgJpXhEd NcZnRuYmpcdWMxXGRlZmYwe 7mle910dAYry6ukWIOvMxS2 zQZrYBNpzPTwT633l8vjb9z yqnKsoFW7SISvAVG4CRfryz QccoX1ZBxrePIlPnJ2CIsoz rGxMRfbiyFechCtDmy3HVDa E793GNT6lKotj6qkIFY3ZHS wUYArFhMuOo8bmYDfC714XD CwWJNXRFNpbBd1TYEcphFde zAaqMNPo945M536w3ovHEFj cxMwbHzFxpqwb7xgH770HSA hcGVydzEyMjQwXHBhcGVyaD P8KWAkAV0qwlzdWtAmFW0yc dswYqPdYS0wlrf2AmRuLW8l cmdiNzIwXGhlYWRlcnkwXGZ pm5OarxsgNO4eC6Mmi1T6fB 9maXRcZGVmdGFiNzIwXGZvc t7lhEIuGBtcw1WpDQT6ovO9 bODnsSYsMRKqNB70Vtqut9C fOxbkRVQ1MUThvdEle2Ffy2 neItFqymBcC1kcA8XwQAGxI QHiFHJfSlBnmaDeo2Noi7Et xOIscFa2e4vmOBCgCHYieDf zd5ebVVR4EWXiX5D8jEXdp8 nbYQxiJJJttON0sdvfYEtoK BLremQ0hnvlGHorCHMrvYR8 riqbJHxbGDNfJeZ2olcvIRc lZVUqPJM8CYvci682KAH5AO xzYmtwYWdlXHBnbmNvbnRcc GduZGVjXHBsYWluXHBsYWlu XGYwXGZzMjRccWxccGxhaW5 jDoUrYdKkORhfMR8bCFTpF8 sxuKIiWFBiQZLfQ8lxYuBfc T2klEjiPKqebyXjDLv8EZU4 XHBhcn0= CLINICAL DATA (test t2zhkENfPYBghYMnHtGsQNG code = 3355) zGEDbi6nqAUHjiMHoQtXuVl NcZnRuYmpcdWMxXGRlZmYwe 0kit602gMAmr0pwHJKqKtQ0 mBWtGWAuyPTfJ211QJUmBVu ks1kdo9DyBEXiuFYhw9A9ZT SDkjibhJe3fMveQ89ns4W9G adxE1vcTUNcPYIqD8AzUX9v OAJpPwl6GUX4IMO6WVAuPXQ qB2IvUO4oTXTqeZBxSNw2r3 rrdZroICPnXGV7m0qzDQppe jTpRJ5ngs6wyVr1t0gliaZv IILxVURkgYPVGRSaC2LpmDb lGu9wdHi2eXcxLcwpOWP0Tb r0OR0txl43fjb4lVcaHYEka qftBoN8MIleGTJbknspTPc3 MFxtYXJnbDcyMFxtYXJncjc yMFxtYXJndDcyMFxtYXJnYj kgAVgdFAHuVUL5BHfrh522J NU1DDxgo1oew8ivjFQpLcw4 LDVqGfOtAjkfTFink3Tpi7o vAJRleo9kKYA5kRSkqHdnj0 P4eCRxPSRjmDQsrwCeEMQvC wV5ZBojWH5cbu76TXIvHIR0 qr4xiHBtsKhjxyXyuJXeZOj nV2OsCOHbw553GRUrL7UnQD Zop6Z6faGuLvTuZFRdzAU2t sH4RHInXSd8uPBpwrL9afGj xIGmI8jqnT62HeRryDHhG6Y svR90TvPnsHLcR8LdgG79Ki PvkTUgF0FzyT12YaTvvIMtK GWhqCSnPs1giVOefIIss5Gl xCUaIZfpP76ca269UMVroaG hL2kotVBtkxippVJrkhdaOE rofrL6ICCsTCDuJIfwISEwL GZzMjBcbGFuZzEwMzNcaGlj cIfgKRznToBcRMYoNSgtI4g cZjFcZnMyMCBSaWdodCBtdW r9gIBml7F6dIA7RZPimJflj TNqfWTzIxY0w6bansJvUSSw COHtz17pAMmsTJH2mLUjoyQ zcGlyYXRvcnkgZmFpbHVyZV xwYXJ9 SPECIMEN SOURCE (test e7rowJJpHOMxdQOkJdKqIYJ code = 3377) xLSGid7hqBOUqoFNrZgZzQy NcZnRuYmpcdWMxXGRlZmYwe 3juj011pIGlb8dkNBVgYyQ8 nPNiXRGijZGkK006y9buv3i lvwTquQR9IWMnKMF3IWiasd GtfqF9JFqniMVdPqH3ACqfo hBwXEecupBpjeQaAuf7ULOd E145GUH0oUhnh4yrEBU4JYA oACHwKvLvEp0nvXRmC090XR HvAEOQCNJqzYp1PKHqhtLcj aAepATOe643S470u9nmUXEh whDhvFmKvaxoi2yiA494OKS hcGVydzEyMjQwXHBhcGVyaD N1MUKeTO9acldeMtMqFU0op rxzLhDuCU3xyms5TqQsPM2q cmdiNzIwXGhlYWRlcnkwXGZ jj9YtsmhjNO3kZ9Gpf7X8dN 9maXRcZGVmdGFiNzIwXGZvc y8wiUAqRClxi6SyGCW9dmW7 uVRiiMQtSSFgAR50Wvvyc7H hTxjhIZC4JCEknzPvl0Mnl7 ytIcZsrhFeK3ugL9WjVIHaP LWtANSrIcZijdOjg3Efl0So bIWykUj9p4fzUHCqABDrqOy ak4hqWCT5HWMwU2N0kDTns4 xrLKasBIDdwGG4rubwKSqhS RBqsrU8cshtEUnmXCUeuMM9 puofOUoqXQVpCiA9jddlLIr bOFMhAVU0PFsnp084LYD7BG xzYmtwYWdlXHBnbmNvbnRcc GduZGVjXHBsYWluXHBsYWlu XGYwXGZzMjRccWxccGxhaW5 qPwMdYiKyNXatHI3yYMOeF9 buwEZgTDNvQQYnP9fbToXzt N5fzDuqSDbmngYuYRLJE0dT IFBMRVVSQUwgRkxVSURccGF yfQ== GROSS DESCRIPTION m3oxvOZgXZLvnJVuRgChKAM (test code = 3366) rOYBqc0iaRXKssNHiSoLaUk NcZnRuYmpcdWMxXGRlZmYwe 4zly740pJHej6wdLYWoVyG6 eFWmYYGqeQBwT277TSGbCYv sw4wvy1FoUFMhgUTqb5T3GI KEmickdNo9jLjvY58ri6F8R cneO5fiWJJzBBQfT4BzPG2b GBTrKav3PCS2YUU8FGCqJTZ eF0OyHB4pCHWjvMRdXAy1t3 graDvoYLYnBTY7p5ldMVgjb jKjPZ0cjt3hmSl2g3xrrsWr SZRzVIHssBVWXHYaF1ZseNr dWv5oeDo4gMgbCpazTMK3It z5HD1lza31mas0iZjtYKJve itbAdX0AZhyBZYmvryaOFd7 MFxtYXJnbDcyMFxtYXJncjc yMFxtYXJndDcyMFxtYXJnYj tqWAawSYHjYTY0VXptd881M XH2VNrtl0okl6dalTVxKcx3 LZXkDpXaHuouYYphy2Ltq3x mKYEebh5fESD0fAEzfEztn2 A5jVFxWKVghDKvbkUgXVZiH yR6PQozQU8vom47AHGeREP9 un6nyZWsbYxrpiMiuNVpQCn eC3RrXYBgl819GLIiV4YvJR Owy1U2spHqSrPaWOKuvLM8a oQ4YHHuRWz1lLHcrbT5cuNg mKKqR7tztX03VzIzaHCtI9N pmE04DiXqeBVfF2ZhxQ70Ma LdhNOwY4BvyD63RrDypNOyF TBpgKEuXt2hmPLkaXLzf3Ty fVPkJAkzJ86as581DYLqfaG rT8ewnWMjlosphSOneolnOY qxvyI9XICaZTGaPHmuHNNhZ GZzMjJcbGFuZzEwMzNcaGlj qJfxSEasUcXtOGIxTLraR8e dMoQcAwWpWxX9MOQlhTdaJY Rlc06zaLdiPXBjfDSwa7Ddn xMnjVXtFPArrZwlP9NpWEqe MDIxNzIwXHBhciBSZWNlaXZ lZDogMDIxODIwXHBhcn0= STATEMENT OF ADEQUACY Satisfactory (test code = 2757) Gross assessment was [facility] performed at ([facility], code = 2777) Department of Pathology, [address] [place] [address], Technical component [facility] was performed at ([facility], code = 2778) Department of Pathology, [address] [place] [address], Professional component [facility] was performed at ([facility], code = 2779) Department of Pathology, [address] [place] [address], [facility] 11:47:00Medical Cytology Report Case: [id number] Aut horizing Provider: Fernando Andrews MD Collected: 04/14/2019 1548 Ordering Location: [facility] Received: 04/15/2019 0913 PERIOPERATIVE SERVICES Pathologist: Sean Piedra MD Specimen: Pleural, Right, Multi loculated pleural effusions RIGHT PLEURAL FLUID (CYTOSPINS): - NEGATIVE FOR MALIGNANCY PREDOMINANTLY BLOOD Signing Pathologist Direct Phone Line: [phone] signed by Sean Piedra MD on 04/15/2019 at 11:47 [id number] multi loculated pleural effusions, pneumonia, acute respiratory failureRIGHT PLEURAL SIJUE868 mls bloody; 4 cytospinsCollected: [id number]: [id number] [facility],Department of Pathology, [address] [place] [address], [facility], Department of Pathology, [address] [place] [address], [facility], Department of Pathology, [address] [place] [address], BUOK-GLUCOSE [id number] 11:33:00 Test Item Value Reference Range Interpretation Comments POC-GLUCOSE METER 113 mg/dL 70-110 H : TESTED A T [facility] 6720 (BEAKER) (test code = ILDA Enrike [place], 1538) [address]: Senior It Security Analyst/Techni aaron ID = [id number] for JIGNA ALEJANDRE CBC W/PLT COUNT & AUTO [id number] 09:14:00 Test Item Value Reference Range Interpretation [...] PERCENT (BEAKER) (test code = 2801) CALCIUM, [id number] 06:51:00 Test Item Value Reference Range Interpretation Comments CALCIUM IONIZED (BEAKER) (test 1.11 mmol/L 1.12-1.27 L code = 698) PH, BLOOD (BEAKER) (test code = 7.47 1810) RAD, CHEST, 1 VIEW, NON [id number] 05:32:00Reason for exam:->s/p R VATSShould this be performed at the bedside?->YesFINAL REPORT CLINICAL INDICATION: Postop Comparison: 04/14/20192031 hours The cardiomediastinal contours are stable. Right-sided parenchymal and pleural opacities are similar toprevious. A small right pneumothorax is noted at the lateral mid to upper chest. Support lines are stable. Signed: Reji Tyler MDRepthree [facility] Verified Date/Time: 04/15/2019 05:32:15 BLOOD GAS, [id number] 05:01:00 Test Item Value Reference Range Interpretation [...] (BEAKER) (test code = 1819) 100.0 % Lactic Acid, [id number] 04:56:00 Test Item Value Reference Range Interpretation Comments Lactate, Art (test code = 1.2 mmol/L 0.5-2.2 2874) DORI (test code = DORI) Senior It Security Analyst ANGELI [facility] Interpretation (test Normal code = 07484-0) [facility]OLIC [id number] 04:56:00 Test Item Value Reference Range Interpretation [...] S NOT APPLICABLE FOR DIALYSIS PATIEN TS. Senior It Security Analyst ID - ELISSA MLACTIC ACID, [id number] 04:56:00 Test Item Value Reference Range Interpretation Comments LACTATE BLOOD ARTERIAL (2) 1.2 mmol/L 0.5-2.2 (BEAKER) (test code = 2874) Senior It Security Analyst ID - ELISSA [id number] 04:53:00 Test Item Value Reference Range Interpretation Comments PHOSPHORUS (BEAKER) (test code = 4.3 mg/dL 2.3-4.7 604) Senior It Security Analyst ID - ELISSA [id number] 04:53:00 Test Item Value Reference Range Interpretation Comments MAGNESIUM (BEAKER) (test code = 2.0 mg/dL 1.6-2.6 627) Senior It Security Analyst ID - ELISSA MCBC W/PLT COUNT & AUTO [id number] 04:41:00 Test Item Value Reference Range Interpretation [...] 0-1 PERCENT (BEAKER) (test code = 2801) [id number] 02:37:00 Test Item Value Reference Range Interpretation Comments Fibrinogen (test code = 3255-7) 177 mg/dl 225-434 L Lab Interpretation (test code = Abnormal 05106-0) [id number] 02:37:00 Test Item Value Reference Range Interpretation Comments Protime (test code = 19.8 11.9- 14.2 H 5902-2) seconds INR (test code = 1.7 <=5.9 6301-6) PTT (test code = 41.1 22.5- 36.0 H 36780-1) seconds DORI (test code = DORI) Effective 07/24/2018: PT Reference Range ChangeNew: 11.9-14.2 Previous: 11.7-14.7 RECOMMENDED COUMADIN/WARFARIN INR THERAPY RANGESSTANDARD DOSE: 2.0-3.0 Includes: PROPHYLAXIS for venous thrombosis, systemic embolization; TREATMENT for venous thrombosis and/or pulmonary embolus.HIGH RISK: Target INR is 2.5-3.5 for patients wiht mechanical heart valves. Lab Interpretation Abnormal (test code = 84055-7) [facility] 02:37:00 Test Item Value Reference Range Interpretation Comments FIBRINOGEN LEVEL (BEAKER) (test 177 mg/dl 225-434 L code = 658) [id number] 02:37:00 Test Item Value Reference Range Interpretation [...] INR is2.5-3.5 for patients wiht mechanical heart valves.[id number] 02:37:00 Test Item Value Reference Range Interpretation Comments PARTIAL THROMBOPLASTIN TIME 41.1 seconds 22.5-36.0 H (BEAKER) (test code = 760) PROTHROMBIN TIME/[id number] 02:36:00 Test Item Value Reference Range Interpretation [...] mechanical heart valves.CBC W/PLT COUNT & AUTO [id number] 01:17:00 Test Item Value Reference Range Interpretation Comments WHITE BLOOD CELL COUNT 10.9 K/ L 3.5-10.5 H (BEAKER) (test code = 775) RED BLOOD CELL COUNT 1.74 M/ L 4.63-6.08 L (BEAKER) (test code = 761) HEMOGLOBIN (BEAKER) 4.4 GM/DL 13.7-17.5 LL [facility] (test code = 410) specimen p er B.no.[id number]. HEMATOCRIT (BEAKER) 14.6 % 40.1-51.0 L (test [...] GRANULOCYTES-RELATIVE PERCENT (BEAKER) (test code = 2801) [id number] 00:58:00 Test Item Value Reference Range Interpretation Comments Cortisol, Total (test code = 10.6 ug/dL 3.7-19.4 2755) DORI (test code = DORI) Senior It Security Analyst ID - BS Lab Interpretation (test Normal code = 56014-1) [facility] 00:58:00 Test Item Value Reference Range Interpretation Comments CORTISOL, TOTAL (BEAKER) (test 10.6 ug/dL 3.7-19.4 code = 2755) Senior It Security Analyst ID - BSPOCT-GLUCOSE [id number] 00:35:00 Test Item Value Reference Range Interpretation Comments POC-GLUCOSE METER 105 mg/dL 70-110 : TESTED A T [facility] (BEAKER) (test code = ILDA [place], 1538) 0[address]: Senior It Security Analyst/Techni aaron ID = [id number] for [facility] lloydYuli RAD, CHEST, 1 VIEW, NON [id number] 22:34:00[facility] arrival to [facility] for exam:->s/p R VATS decorticationShould this be performed at the [facility] e?->YesFINAL REPORT TECHNIQUE: Frontal view of [...] right lateral chest soft tissue changes. Signed: Anton Garciaeport Verified Date/Time: 04/14/2019 22:34:49 Reading Location: [address] Consult Reading Room [id number] 20:24:00 Test Item Value Reference Range Interpretation Comments PHOSPHORUS (BEAKER) (test code = 4.0 mg/dL 2.3-4.7 604) Senior It Security Analyst ID - [id number] 20:24:00 Test Item Value Reference Range Interpretation Comments MAGNESIUM (BEAKER) (test code = 1.8 mg/dL 1.6-2.6 627) Senior It Security Analyst ID - BSBLOOD GAS, [id number] 20:22:00 Test Item Value Reference Range Interpretation [...] (test code = 1819) 80.0 % CALCIUM, [id number] 20:19:00 Test Item Value Reference Range Interpretation Comments CALCIUM IONIZED (BEAKER) (test 1.23 mmol/L 1.12-1.27 code = 698) PH, BLOOD (BEAKER) (test code = 7.44 1810) COMPREHENSIVE METABOLIC [id number] 19:53:00 Test Item Value Reference Range Interpretation [...] S NOT APPLICABLE FOR DIALYSIS PATIEN TS. Senior It Security Analyst ID - BSHGB/HCT (H&H)-Stat [id number] 17:56:00 Test Item Value Reference Range Interpretation Comments Hemoglobin (test code = 786-4) 9.0 g/dL 13-16.8 L Hematocrit (test code = 4544-3) 26.0 % 40-50 L Lab Interpretation (test code = Abnormal 88113-1) [facility]assium-Stat [id number] 17:56:00 Test Item Value Reference Range Interpretation Comments Potassium (test code = 2823-3) 3.4 meq/L 3.6-5.5 L Lab Interpretation (test code = Abnormal 59856-2) [facility] HospitalBLOOD GAS, [id number] 17:56:00 Test Item Value Reference Range Interpretation [...] (test code = 1819) 100.0 % CALCIUM, [id number] 17:56:00 Test Item Value Reference Range Interpretation Comments CALCIUM IONIZED (BEAKER) (test 1.30 mmol/L 1.12-1.27 H code = 698) PH, BLOOD (BEAKER) (test code = 7.46 1810) POTASSIUM-STAT [id number] 17:56:00 Test Item Value Reference Range Interpretation Comments POTASSIUM (BEAKER) (test code = 3.4 meq/L 3.6-5.5 L 379) HGB/HCT (H&H) - STAT [id number] 17:56:00 Test Item Value Reference Range Interpretation Comments HEMOGLOBIN (BEAKER) (test code = 9.0 g/dL 13.0-16.8 L 410) HEMATOCRIT (BEAKER) (test code = 26.0 % 40.0-50.0 L 411) Glucose-Stat [id number] 17:55:00 Test Item Value Reference Range Interpretation Comments Glucose (test code = 2345-7) 100 mg/dL 70-110 Lab Interpretation (test code = Normal 06777-5) [facility] [id number] 17:55:00 Test Item Value Reference Range Interpretation Comments Sodium (test code = 2951-2) 138 meq/L 135-148 Lab Interpretation (test code = Normal 92533-0) [facility]SE-[facility] [id number] 17:55:00 Test Item Value Reference Range Interpretation Comments GLUCOSE RANDOM (BEAKER) (test code 100 mg/dL 70-110 = 652) SODIUM NA-STAT [id number] 17:55:00 Test Item Value Reference Range Interpretation Comments SODIUM (BEAKER) (test code = 381) 138 meq/L 135-148 BLOOD GAS, [id number] 16:42:00 Test Item Value Reference Range Interpretation [...] (test code = 1819) 100.0 % POTASSIUM-STAT [id number] 16:42:00 Test Item Value Reference Range Interpretation Comments POTASSIUM (BEAKER) (test code = 3.4 meq/L 3.6-5.5 L 379) HGB/HCT (H&H) - STAT [id number] 16:42:00 Test Item Value Reference Range Interpretation Comments HEMOGLOBIN (BEAKER) (test code = 10.1 g/dL 13.0-16.8 L 410) HEMATOCRIT (BEAKER) (test code = 30.0 % 40.0-50.0 L 411) CALCIUM, [id number] 16:41:00 Test Item Value Reference Range Interpretation Comments CALCIUM IONIZED (BEAKER) (test 1.12 mmol/L 1.12-1.27 code = 698) PH, BLOOD (BEAKER) (test code = 7.51 1810) GLUCOSE-STAT [id number] 16:39:00 Test Item Value Reference Range Interpretation Comments GLUCOSE RANDOM (BEAKER) (test code 104 mg/dL 70-110 = 652) SODIUM NA-STAT [id number] 16:39:00 Test Item Value Reference Range Interpretation Comments SODIUM (BEAKER) (test code = 381) 137 meq/L 135-148 GLUCOSE-STAT [id number] 15:31:00 Test Item Value Reference Range Interpretation Comments GLUCOSE RANDOM (BEAKER) (test code = 92 mg/dL 70-110 652) SODIUM NA-STAT [id number] 15:31:00 Test Item Value Reference Range Interpretation Comments SODIUM (BEAKER) (test code = 381) 135 meq/L 135-148 CALCIUM, [id number] 15:31:00 Test Item Value Reference Range Interpretation Comments CALCIUM IONIZED (BEAKER) (test 1.07 mmol/L 1.12-1.27 L code = 698) PH, BLOOD (BEAKER) (test code = 7.55 1810) BLOOD GAS, [id number] 15:31:00 Test Item Value Reference Range Interpretation [...] (test code = 1819) 100.0 % POTASSIUM-STAT [id number] 15:31:00 Test Item Value Reference Range Interpretation Comments POTASSIUM (BEAKER) (test code = 3.4 meq/L 3.6-5.5 L 379) HGB/HCT (H&H) - STAT [id number] 15:31:00 Test Item Value Reference Range Interpretation Comments HEMOGLOBIN (BEAKER) (test code = 10.2 g/dL 13.0-16.8 L 410) HEMATOCRIT (BEAKER) (test code = 30.0 % 40.0-50.0 L 411) RAD, CHEST, 1 VIEW, NON [id number] 10:51:00Reason for exam:->eval pleural effusionsShould this be [...] MDReport Verified Date/Time: 04/14/2019 10:51:03 Reading Location: [facility] Type and screen, automated 2019-04-14 02:31:00 Test Item Value Reference Range Interpretation Comments ABO/RH AUTOMATED (BEAKER) (test A NEGATIVE code = 2260) Ab Scrn (test code = 890-4) NEGATIVE [facility] [id number] 01:52:00 Test Item Value Reference Range Interpretation [...] S NOT APPLICABLE FOR DIALYSIS PATIEN TS. Senior It Security Analyst ID - EMILIE [id number] 01:51:00 Test Item Value Reference Range Interpretation Comments PHOSPHORUS (BEAKER) (test code = 2.8 mg/dL 2.3-4.7 604) Senior It Security Analyst ID - LCBECKY [id number] 01:51:00 Test Item Value Reference Range Interpretation Comments MAGNESIUM (BEAKER) (test code = 2.1 mg/dL 1.6-2.6 627) Senior It Security Analyst ID - EMILIE LCBC W/PLT COUNT & AUTO [id number] 01:30:00 Test Item Value Reference Range Interpretation [...] PERCENT (BEAKER) (test code = 2801) PROTHROMBIN [id number] 01:26:00 Test Item Value Reference Range Interpretation [...] is2.5-3.5 for patients wiht mechanical heart valves.POCT-GLUCOSE [id number] 20:47:00 Test Item Value Reference Range Interpretation Comments POC-GLUCOSE METER 114 mg/dL 70-110 H : TESTED A T [facility] 6720 (BEAKER) (test code = ILDA Calvert [facility], 1538) 02851: Senior It Security Analyst/Techni aaron ID = [id number] for ALBERTINA MEADE POCT-GLUCOSE [id number] 17:43:00 Test Item Value Reference Range Interpretation Comments POC-GLUCOSE METER 117 mg/dL 70-110 H : TESTED A T [facility] 6720 (BEAKER) (test code [facility], = 1538) 93795: Senior It Security Analyst/Techni aaron ID = [id number] for LEWI S, [place] POCT-GLUCOSE [id number] 12:16:00 Test Item Value Reference Range Interpretation Comments POC-GLUCOSE METER 111 mg/dL 70-110 H : TESTED A T [facility] 6720 (BEAKER) (test code [facility], = 1538) 31531: Senior It Security Analyst/Techni aaron ID = [id number] for LEWI S, [place] RAD, CHEST, 1 VIEW, NON [id number] 08:47:00Reason for exam:->right pleural effusion s/p TPAShould [...] upper quadrant of the abdomen. Signed: Fredi Lucaseport Verified Date/Time: 04/13/2019 08:47:02 Reading Location: [facility] C013T Transitional Reading Room Electronically s igned [...] S NOT APPLICABLE FOR DIALYSIS PATIEN TS. Senior It Security Analyst ID - KENWVepatic function [id number] 06:12:00 Test Item Value Reference Range Interpretation Comments Protein, Total (test code 5.5 6.0- 8.3 gm/dL L = 2885-2) Albumin (test code = 1.8 g/dL 3.5-5 L 41686-6) Total Bilirubin (test code 1.1 mg/dL 0.2-1.2 = 1975-2) Bilirubin, Direct (test 0.7 mg/dL 0.1-0.5 H code = 1968-7) Alkaline Phosphatase (test 157 U/L 40-150 H code = 6768-6) AST (test code = 1920-8) 38 U/L 5-34 H ALT (test code = 1742-6) 34 U/L 6-55 DORI (test code = DORI) Senior It Security Analyst ID - HCELSEY Lab Interpretation (test Abnormal code = 18721-9) [facility]AT[facility] FUNCTION [id number] 06:12:00 Test Item Value Reference Range Interpretation [...] (test code = 34 U/L 6-55 347) Senior It Security Analyst ID - KENNPOCT-GLUCOSE [id number] 06:10:00 Test Item Value Reference Range Interpretation Comments POC-GLUCOSE METER 126 mg/dL 70-110 H : TESTED A T [facility] (BEAKER) (test code = ILDA [place], 1538) 657[address]: Senior It Security Analyst/Techni aaron ID = [id number] for CH UA, HENRISON CBC W/PLT COUNT & AUTO [id number] 06:07:00 Test Item Value Reference Range Interpretation [...] 0-1 PERCENT (BEAKER) (test code = 2801) [id number] 06:07:00 Test Item Value Reference Range Interpretation Comments PHOSPHORUS (BEAKER) (test code = 3.0 mg/dL 2.3-4.7 604) Senior It Security Analyst ID - [id number] 06:07:00 Test Item Value Reference Range Interpretation Comments MAGNESIUM (BEAKER) (test code = 2.1 mg/dL 1.6-2.6 627) Senior It Security Analyst ID - [id number] 05:52:00 Test Item Value Reference Range Interpretation Comments PARTIAL THROMBOPLASTIN TIME 32.7 seconds 22.5-36.0 (BEAKER) (test code = 760) POCT-GLUCOSE [id number] 17:32:00 Test Item Value Reference Range Interpretation Comments POC-GLUCOSE METER 83 mg/dL 70-110 : TESTED A T [facility] 6720 (BEAKER) (test code = [place], 1538) 20311: Senior It Security Analyst/Techni aaron ID = [id number] for STOJ CIC, NADA Body fluid culture + gram [id number] 14:07:00 Test Item Value Reference Range Interpretation Comments Result (test code = No growth 6463-4) Gram Stain Result <1+ gram negative rods (test code = 1123) [facility] + GRAM [id number] 14:07:00 Test Item Value Reference Range Interpretation Comments CULTURE (BEAKER) (test No growth code = 1095) GRAM STAIN RESULT <1+ WBCs (BEAKER) (test code = 1123) GRAM STAIN RESULT <1+ gram negative rods (BEAKER) (test code = 99943) POCT-GLUCOSE [id number] 12:20:00 Test Item Value Reference Range Interpretation Comments POC-GLUCOSE METER 84 mg/dL 70-110 : TESTED A T [facility] (BEAKER) (test code = [place], 1538) 56857: Senior It Security Analyst/Techni aaron ID = [id number] for STOJ CIC, NADA RAD, CHEST, 1 VIEW, NON [id number] 07:44:00Reason for exam:->eval pleural effusionsShould this be [...] Rivas MDReport Verified Date/Time: 04/12/201907:44:33 Reading Location: [facility] C013Y CT Body Reading Room BASIC METABOLIC [id number] 06:46:00 Test Item Value Reference Range Interpretation [...] S NOT APPLICABLE FOR DIALYSIS PATIEN TS. Senior It Security Analyst ID - ELISSA MCBC W/PLT COUNT & AUTO [id number] 06:45:00 Test Item Value Reference Range Interpretation [...] 0-1 PERCENT (BEAKER) (test code = 2801) [id number] 06:45:00 Test Item Value Reference Range Interpretation Comments PHOSPHORUS (BEAKER) (test code = 3.8 mg/dL 2.3-4.7 604) Senior It Security Analyst ID - ELISSA [id number] 06:45:00 Test Item Value Reference Range Interpretation Comments MAGNESIUM (BEAKER) (test code = 2.1 mg/dL 1.6-2.6 627) Senior It Security Analyst ID - ELISSA MPOCT-GLUCOSE [id number] 05:33:00 Test Item Value Reference Range Interpretation Comments POC-GLUCOSE METER 78 mg/dL 70-110 : TESTED A T [facility] 6720 (BEAKER) (test code = ILDA Calvert [facility], 1538) 92680: Senior It Security Analyst/Techni aaron ID = [id number] for LEGA SPI, BARI POCT-GLUCOSE [id number] 00:19:00 Test Item Value Reference Range Interpretation Comments POC-GLUCOSE METER 78 mg/dL 70-110 : Notified RN/MD: TESTED (BEAKER) (test code = AT [facility] 67[address] [facility] 1538) [facility], 770 30: Senior It Security Analyst/Techni aaron ID = [id number] for LEGA SPI, BARI POCT-GLUCOSE [id number] 17:51:00 Test Item Value Reference Range Interpretation Comments POC-GLUCOSE METER 89 mg/dL 70-110 : TESTED A T [facility] 6720 (BEAKER) (test code = [facility] Enrike [facility], 1538) 78709: Senior It Security Analyst/Techni aaron ID = [id number] for RADHA CLAROS RAD, CHEST, 1 VIEW, NON [id number] 13:20:00Reason for exam:->eval pleural effusionsShould this be [...] Robert MDReport Verified Date/Time: 04/11/2019 13:20:58 ReadingLocation: [facility] Radiology Reading Room POCT-GLUCOSE METER 2019-04-11 12:21:00 Test Item Value Reference Range Interpretation Comments POC-GLUCOSE METER 82 mg/dL 70-110 : TESTED A T [facility] 6720 (BEAKER) (test code = [facility], 1538) 80323: Senior It Security Analyst/Techni aaron ID = [id number] for RADHA CLAROS POCT-GLUCOSE [id number] 10:51:00 Test Item Value Reference Range Interpretation Comments POC-GLUCOSE METER 84 mg/dL 70-110 : TESTED A T [facility] 6720 (BEAKER) (test code = [facility], 1538) 37744: Senior It Security Analyst/Techni aaron ID = [id number] for MIKE DAVIDSON BASIC METABOLIC [id number] 08:47:00 Test Item Value Reference Range Interpretation [...] S NOT APPLICABLE FOR DIALYSIS PATIEN TS. Senior It Security Analyst ID Sultana SCOTT [id number] 08:46:00 Test Item Value Reference Range Interpretation Comments PHOSPHORUS (BEAKER) (test code = 3.3 mg/dL 2.3-4.7 604) Senior It Security Analyst ID Sultana SCOTT [id number] 08:46:00 Test Item Value Reference Range Interpretation Comments MAGNESIUM (BEAKER) (test code = 2.2 mg/dL 1.6-2.6 627) Senior It Security Analyst ID Sultana LUIOCT-GLUCOSE [id number] 07:13:00 Test Item Value Reference Range Interpretation Comments POC-GLUCOSE METER 84 mg/dL 70-110 : TESTED A T [facility] 6720 (BEAKER) (test code = [place], 1538) 47753: Senior It Security Analyst/Techni aaron ID = [id number] for SUBL ET, MARÍA CBC W/PLT COUNT & AUTO [id number] 06:26:00 Test Item Value Reference Range Interpretation [...] PERCENT (BEAKER) (test code = 2801) PROTHROMBIN TIME/[id number] 06:22:00 Test Item Value Reference Range Interpretation [...] is2.5-3.5 for patients wiht mechanical heart valves.POCT-GLUCOSE [id number] 00:28:00 Test Item Value Reference Range Interpretation Comments POC-GLUCOSE METER 97 mg/dL 70-110 : TESTED A T [facility] 6720 (BEAKER) (test code = ILDA Cavlert [facility], 1538) 11029: Senior It Security Analyst/Techni aaron ID = [id number] for MARÍA DON POCT-GLUCOSE [id number] 15:14:00 Test Item Value Reference Range Interpretation Comments POC-GLUCOSE METER 97 mg/dL 70-110 : TESTED A T [facility] 6720 (BEAKER) (test code = ILDA Calvert [facility], 1538) 59004: Senior It Security Analyst/Techni aaron ID = [id number] for TONY Yañez JAVIER RAD, CHEST, 1 VIEW, NON [id number] 09:36:00Reason for exam:->eval pleural effusionsShould this be [...] MDReport Verified Date/Time: 04/10/2019 09:36:48 Reading Location: [facility] Radiology ReadingRoom BASIC METABOLIC PANEL 2019-04-10 06:20:00 [...] S NOT APPLICABLE FOR DIALYSIS PATIEN TS. Senior It Security Analyst ID - [id number] 06:06:00 Test Item Value Reference Range Interpretation Comments PHOSPHORUS (BEAKER) (test code = 3.7 mg/dL 2.3-4.7 604) Senior It Security Analyst ID - [id number] 06:06:00 Test Item Value Reference Range Interpretation Comments MAGNESIUM (BEAKER) (test code = 2.0 mg/dL 1.6-2.6 627) Senior It Security Analyst ID - LACBC W/PLT COUNT & AUTO [id number] 05:54:00 Test Item Value Reference Range Interpretation [...] PERCENT (BEAKER) (test code = 2801) POCT-GLUCOSE [id number] 00:49:00 Test Item Value Reference Range Interpretation Comments POC-GLUCOSE METER 113 mg/dL 70-110 H : TESTED A T [facility] 6720 (BEAKER) (test code = [facility], 153) 19746: Senior It Security Analyst/Techni aaron ID = [id number] for CL ARK, ALBERTINA POCT-GLUCOSE [id number] 17:50:00 Test Item Value Reference Range Interpretation Comments POC-GLUCOSE METER 86 mg/dL 70-110 : TESTED A T [facility] 6720 (BEAKER) (test code = [facility], 153) 78828: Senior It Security Analyst/Techni aaron ID = [id number] for STOJ CIC, NADA FL, ESOPH, SWALLOW FUNCTION, WITH CINE OR [id number] 16:22:00Reason for exam:->dysphagia, on TFsFINAL REPORT Modified [...] 0.5 minutes Number of images: 8 Signed: Edwin Salazar MDReport Verified Date/Time: 04/09/2019 16:22:18 Reading Location: [facility] Radiology Reading Room POCT-GLUCOSE [id number] 12:00:00 Test Item Value Reference Range Interpretation Comments POC-GLUCOSE METER 97 mg/dL 70-110 : TESTED A T [facility] 6720 (BEFlypeeps) (test code = [place] [facility], 1538) 69300: Senior It Security Analyst/Techni aaron ID = [id number] for DUON G, PRISCILLA POCT-GLUCOSE [id number] 09:53:00 Test Item Value Reference Range Interpretation Comments POC-GLUCOSE METER 102 mg/dL 70-110 : TESTED A T [facility] 6720 (BEFlypeeps) (test code = [place], 1538) 67355: Senior It Security Analyst/Techni aaron ID = [id number] for DU GILBERTO, PRISCILLA RAD, CHEST, 1 VIEW, NON [id number] 07:20:00Reason for exam:->eval pleural effusionsShould this be [...] changes.Additional findings: None. Signed: JR Marek, Christie Sanz Verified Date/Time: 04/09/2019 07:20:55 Reading Location: [facility] Radiology Reading Room Electronically signed by: CHRISTIE Piña 04/09/2019 07:20 [id number] 06:48:00 Test Item Value Reference Range Interpretation Comments PHOSPHORUS (BEAKER) (test code = 2.8 mg/dL 2.3-4.7 604) Senior It Security Analyst ID - [id number] 06:48:00 Test Item Value Reference Range Interpretation Comments MAGNESIUM (BEAKER) (test code = 1.8 mg/dL 1.6-2.6 627) Senior It Security Analyst ID - GALAPBASIC METABOLIC [id number] 06:48:00 Test Item Value Reference Range Interpretation [...] S NOT APPLICABLE FOR DIALYSIS PATIEN TS. Senior It Security Analyst ID - GALAPCBC W/PLT COUNT & AUTO [id number] 06:39:00 Test Item Value Reference Range Interpretation [...] PERCENT (BEAKER) (test code = 2801) POCT-GLUCOSE [id number] 06:29:00 Test Item Value Reference Range Interpretation Comments POC-GLUCOSE METER 70 mg/dL 70-110 : TESTED A T [facility] 6720 (BEAKER) (test code = [facility], 1538) 25856: Senior It Security Analyst/Techni aaron ID = [id number] for CARROLL GRIMMA POCT-GLUCOSE [id number] 05:40:00 Test Item Value Reference Range Interpretation Comments POC-GLUCOSE METER 90 mg/dL 70-110 : TESTED A T [facility] 6720 (BEAKER) (test code = [facility], 1538) 82623: Senior It Security Analyst/Techni aaron ID = [id number] for PEG BLUM AMIE POCT-GLUCOSE [id number] 17:57:00 Test Item Value Reference Range Interpretation Comments POC-GLUCOSE METER 90 mg/dL 70-110 : TESTED A T [facility] 6720 ([facility]) (test code = [facility], 1538) 76675: Senior It Security Analyst/Techni aaron ID = [id number] for ADILSON PRUITT, NADA POCT-GLUCOSE [id number] 12:47:00 Test Item Value Reference Range Interpretation Comments POC-GLUCOSE METER 97 mg/dL 70-110 : TESTED A T [facility] 6720 ([facility]) (test code = [facility], 1538) 98718: Senior It Security Analyst/Techni aaron ID = [id number] for JAVIER IVY RAD, CHEST, 1 VIEW, NON [id number] 07:33:00Reason for exam:->eval pleural effusionsShould this be [...] MDReport Verified Date/Time: 04/08/2019 07:33:22 Reading Location: [facility] Radiology Reading Room POCT-GLUCOSE [id number] 05:33:00 Test Item Value Reference Range Interpretation Comments POC-GLUCOSE METER 97 mg/dL 70-110 : [facility] (BEAKER) (test code = [place], 1538) [id number]: Senior It Security Analyst/Techni aaron ID = [id number] for ELIAZAR DEY BASIC METABOLIC [id number] 05:33:00 Test Item Value Reference Range Interpretation [...] S NOT APPLICABLE FOR DIALYSIS PATIEN TS. Senior It Security Analyst ID - [id number] 05:16:00 Test Item Value Reference Range Interpretation Comments PHOSPHORUS (BEAKER) (test code = 2.5 mg/dL 2.3-4.7 604) Senior It Security Analyst ID - [id number] 05:16:00 Test Item Value Reference Range Interpretation Comments MAGNESIUM (BEAKER) (test code = 1.9 mg/dL 1.6-2.6 627) Senior It Security Analyst ID - [id number] W/PLT COUNT & AUTO [id number] 05:10:00 Test Item Value Reference Range Interpretation [...] PERCENT (BEAKER) (test code = 2801) POCT-GLUCOSE [id number] 00:34:00 Test Item Value Reference Range Interpretation Comments POC-GLUCOSE METER 111 mg/dL 70-110 H : TESTED A T [facility] 6720 (BEAKER) (test code = [facility] [place], 1538) 257[address]: Senior It Security Analyst/Techni aaron ID = [id number] for ELIAZAR ANAND BASIC METABOLIC [id number] 18:38:00 Test Item Value Reference Range Interpretation [...] S NOT APPLICABLE FOR DIALYSIS PATIEN TS. Senior It Security Analyst ID - BSPOCT-GLUCOSE [id number] 17:48:00 Test Item Value Reference Range Interpretation Comments POC-GLUCOSE METER 113 mg/dL 70-110 H : TESTED A T [facility] 6720 (BEAKER) (test code = [facility] Enrike [place], 1538) 29584: Senior It Security Analyst/Techni aaron ID = [id number] for MARQUIS SMITH FUNGUS CULTURE + [id number] 17:33:00 Test Item Value Reference Range Interpretation [...] 1406) Refer to previous culture of Ana albicansAlbumin Pleural [id number] 16:52:00 Test Item Value Reference Range Interpretation Comments Albumin, Pleural Fluid (test code = 0.8 1748-3) [facility], [facility] [id number] 16:50:00 Test Item Value Reference Range Interpretation Comments PROTEIN, TOTAL, PLEURAL FLUID (test 2.6 code = 2882-9) [facility] [id number] 11:47:00 Test Item Value Reference Range Interpretation Comments POC-GLUCOSE METER 102 mg/dL 70-110 : TESTED A T [facility] 6720 (BEAKER) (test code = ILDA Calvert [facility], 1538) 96109: Senior It Security Analyst/Techni aaron ID = [id number] for MARQUIS SMITH RAD, CHEST, 1 VIEW, NON [id number] 11:26:00Reason for exam:->S/p L chest tube removalFINAL [...] MDReport Verified Date/Time: 04/07/2019 11:26:55 Reading Location: [facility] Radiology Reading Room RAD, CHEST, 1 VIEW, NON [id number] 10:15:00Reason for exam:->eval pleural effusionsShould this be [...] changes.Additional findings: None. Signed: JR Marek, Christie Sanz Verified Date/Time: 04/07/2019 10:15:23 Reading Location: [facility] Radiology Reading Room 10:15 [id number] 08:15:00 Test Item Value Reference Range Interpretation Comments PHOSPHORUS (BEAKER) (test code = 3.3 mg/dL 2.3-4.7 604) Senior It Security Analyst ID - PHILIP [id number] 08:15:00 Test Item Value Reference Range Interpretation Comments MAGNESIUM (BEAKER) (test code = 2.0 mg/dL 1.6-2.6 627) Senior It Security Analyst ID - PHILIP CBASIC METABOLIC [id number] 08:15:00 Test Item Value Reference Range Interpretation [...] S NOT APPLICABLE FOR DIALYSIS PATIEN TS. Senior It Security Analyst ID - PHILIP CCBC W/PLT COUNT & AUTO [id number] 07:40:00 Test Item Value Reference Range Interpretation [...] PERCENT (BEAKER) (test code = 2801) POCT-GLUCOSE [id number] 06:50:00 Test Item Value Reference Range Interpretation Comments POC-GLUCOSE METER 92 mg/dL 70-110 : TESTED A T [facility] 6720 (BEAKER) (test code = [facility], 1538) 06305: Senior It Security Analyst/Techni aaron ID = [id number] for ELIAZAR DEY POCT-GLUCOSE [id number] 00:17:00 Test Item Value Reference Range Interpretation Comments POC-GLUCOSE METER 109 mg/dL 70-110 : TESTED A T [facility] 6720 (BEAKER) (test code = [facility], 1538) 68220: Senior It Security Analyst/Techni aaron ID = [id number] for ELIAZAR ANAND POCT-GLUCOSE [id number] 18:05:00 Test Item Value Reference Range Interpretation Comments POC-GLUCOSE METER 100 mg/dL 70-110 : TESTED A T [facility] 6720 (BEAKER) (test code = [facility], 1538) 24461: Senior It Security Analyst/Techni aaron ID = [id number] for RICARDO KEMP POCT-GLUCOSE [id number] 18:05:00 Test Item Value Reference Range Interpretation Comments POC-GLUCOSE METER 90 mg/dL 70-110 : TESTED A T [facility] 6720 (BEAKER) (test code = [facility], 1538) 68204: Senior It Security Analyst/Techni aaron ID = [id number] for TORR ES, EVANS BASIC METABOLIC [id number] 17:33:00 Test Item Value Reference Range Interpretation [...] S NOT APPLICABLE FOR DIALYSIS PATIEN TS. Senior It Security Analyst ID - ALMA FERNANDEZAD, CHEST, 1 VIEW, NON [id number] 08:21:00Reason for exam:->eval pleural effusionsShould this be [...] are unchanged. IMPRESSION:No significant interval change. Signed: Delaney Rajanepanni Verified Date/Time: 04/06/2019 08:21:47 [id number] 07:38:00 Test Item Value Reference Range Interpretation Comments PHOSPHORUS (BEAKER) (test code = 3.7 mg/dL 2.3-4.7 604) Senior It Security Analyst ID - SONIA [id number] 07:38:00 Test Item Value Reference Range Interpretation Comments MAGNESIUM (BEAKER) (test code = 2.1 mg/dL 1.6-2.6 627) Senior It Security Analyst ID - SONIA FBASIC METABOLIC [id number] 07:38:00 Test Item Value Reference Range Interpretation [...] S NOT APPLICABLE FOR DIALYSIS PATIEN TS. Senior It Security Analyst ID - TALOGA FCBC W/PLT COUNT & AUTO [id number] 07:35:00 Test Item Value Reference Range Interpretation [...] PERCENT (BEAKER) (test code = 2801) POCT-GLUCOSE [id number] 05:27:00 Test Item Value Reference Range Interpretation Comments POC-GLUCOSE METER 89 mg/dL 70-110 : TESTED A T [facility] 6720 (BEAKER) (test code = [place], 1538) 57972: Senior It Security Analyst/Techni aaron ID = [id number] for CANDIDO LEMUS BASIC METABOLIC [id number] 17:09:00 Test Item Value Reference Range Interpretation [...] S NOT APPLICABLE FOR DIALYSIS PATIEN TS. Senior It Security Analyst ID - ELISSA MPOCT-GLUCOSE [id number] 11:34:00 Test Item Value Reference Range Interpretation Comments POC-GLUCOSE METER 104 mg/dL 70-110 : TESTED A T [facility] 6720 (BEAKER) (test code = [place], 1538) 89877: Senior It Security Analyst/Techni aaron ID = [id number] for JIGNA ALEJANDRE BASIC METABOLIC [id number] 05:51:00 Test Item Value Reference Range Interpretation [...] S NOT APPLICABLE FOR DIALYSIS PATIEN TS. Senior It Security Analyst ID - ELISSA [id number] 05:43:00 Test Item Value Reference Range Interpretation Comments PHOSPHORUS (BEAKER) (test code = 3.5 mg/dL 2.3-4.7 604) Senior It Security Analyst ID - ELISSA [id number] 05:43:00 Test Item Value Reference Range Interpretation Comments MAGNESIUM (BEAKER) (test code = 1.9 mg/dL 1.6-2.6 627) Senior It Security Analyst ID - ELISSA MCBC W/PLT COUNT & AUTO [id number] 05:28:00 Test Item Value Reference Range Interpretation [...] = 2801) RAD, CHEST, 1 VIEW, NON [id number] 04:46:00Reason for exam:->eval pleural effusionsShould this be [...] Stiles MDReport Verified Date/Time: 04/05/2019 04:46:52 POCT-GLUCOSE [id number] 23:55:00 Test Item Value Reference Range Interpretation Comments POC-GLUCOSE METER 103 mg/dL 70-110 : TESTED A T [facility] 6720 (BEAKER) (test code [facility], = 1538) 73270: Senior It Security Analyst/Techni aaron ID = [id number] for SUGU SHEENAMOL FUNGUS CULTURE + [id number] 18:09:00 Test Item Value Reference Range Interpretation Comments CULTURE (BEAKER) A 2+ Ana albicans (test code = 1095) FUNGUS SMEAR No fungi seen (BEAKER) (test code = 1406) RAD, ABDOMEN/KUB, 1 VIEW [id number] 18:03:00Reason for exam:->TFFINAL REPORT Abdomen date 04/04/2019 Comment: Frontal view of the abdomen demonstrates a feeding tube present with tip noted in the descending duodenum. Signed: Tomasa Foss MDReport Verified Date/Time: 04/04/2019 18:03:16 Reading Location: [address] Consult Reading Room XR abdomen / KUB 1 [id number] 18:03:00Interface, External Ris In - 04/04/2019 6:05 PM CSTFINAL REPORT Abdomen date04/04/2019 Comment: Frontal view of the abdomen demonstrates a feeding tube present with tip noted inthe descending duodenum. Signed: Tomasa Foss MDReport Verified Date/Time: 04/04/2019 18:03:16 Reading Location: [facility] [id number] 17:54:00 Test Item Value Reference Range Interpretation Comments POC-GLUCOSE METER 82 mg/dL 70-110 : TESTED A T [facility] 6720 (BEAKER) (test code = DOROTAJAVI [place], 1538) 10126: Senior It Security Analyst/Techni aaron ID = [id number] for MJ ERS, ISABELA BASIC METABOLIC [id number] 17:40:00 Test Item Value Reference Range Interpretation [...] S NOT APPLICABLE FOR DIALYSIS PATIEN TS. Senior It Security Analyst ID - BSRAD, ABDOMEN/KUB, 1 VIEW [id number] 15:46:00Reason for exam:- >korpak placementFINAL REPORT RAD, [...] IMPRESSION: Nonspecific, nonobstructive bowel gas pattern. Signed: Yonathan Garcia Verified Date/Time: 04/04/2019 15:46:45 Reading Location: [facility] Radiology Reading Room POCT-GLUCOSE [id number] 12:21:00 Test Item Value Reference Range Interpretation Comments POC-GLUCOSE METER 94 mg/dL 70-110 : TESTED A T [facility] 6720 (BEAKER) (test code = [place], 1538) 07990: Senior It Security Analyst/Techni aaron ID = [id number] for SAND ERS, ISABELA RAD, CHEST, 1 VIEW, NON [id number] 08:56:00Reason for exam:->eval pleural effusion, CT in placeShould this be performed at the bedside?->YesFINAL REPORT RAD, CHEST, 1 VIEW, NON DEPT INDICATION: eval pleural effusion, CT in place COMPARISON: Prior day's exam FINDINGS: Portable frontal view of the chest. IMPRESSION:Support Lines: Stable. Lungs and pleura: Unchanged airspace and pleural opacities. No pneumothorax.Heart and mediastinum: Stable contours. Stable surgical changes.Additional findings: None. Signed: Yonathan Infante Verified Date/Time: 04/04/2019 08:56:32 Reading Location: [facility] Radiology Reading Room CBC W/PLT COUNT [...] PERCENT (BEAKER) (test code = 2801) POCT-GLUCOSE [id number] 05:41:00 Test Item Value Reference Range Interpretation Comments POC-GLUCOSE METER 107 mg/dL 70-110 : TESTED [facility] 6720 (BEAKER) (test code = ILDA UMANA, 1538) 42598: Senior It Security Analyst/Techni aaron ID = [id number] for PRASHANTH FLYNN EDISON [id number] 05:17:00 Test Item Value Reference Range Interpretation Comments PHOSPHORUS (BEAKER) (test code = 4.2 mg/dL 2.3-4.7 604) Senior It Security Analyst ID - ELISSA [id number] 05:17:00 Test Item Value Reference Range Interpretation Comments MAGNESIUM (BEAKER) (test code = 1.9 mg/dL 1.6-2.6 627) Senior It Security Analyst ID - ELISSA MBASIC METABOLIC [id number] 05:17:00 Test Item Value Reference Range Interpretation [...] S NOT APPLICABLE FOR DIALYSIS PATIEN TS. Senior It Security Analyst ID - ELISSA MPOCT-GLUCOSE [id number] 00:06:00 Test Item Value Reference Range Interpretation Comments POC-GLUCOSE METER 109 mg/dL 70-110 : TESTED A T [facility] 6720 (BEAKER) (test code = [place], 1538) 41318: Senior It Security Analyst/Techni aaron ID = [id number] for EDISON BELTRAN [id number] 20:00:00 Test Item Value Reference Range Interpretation Comments MAGNESIUM (BEAKER) 1.9 mg/dL 1.6-2.6 Specimen slightly (test code = 627) hemolyzed Senior It Security Analyst ID - ANHOCT-GLUCOSE [id number] 17:14:00 Test Item Value Reference Range Interpretation Comments POC-GLUCOSE METER 114 mg/dL 70-110 H : TESTED A T [facility] 6720 (BEAKER) (test code = [facility], 1538) 87621: Senior It Security Analyst/Techni aaron ID = [id number] for COLLIN ESCOBAR BASIC METABOLIC [id number] 16:17:00 Test Item Value Reference Range Interpretation [...] S NOT APPLICABLE FOR DIALYSIS PATIEN TS. Senior It Security Analyst ID - BSPOCT-GLUCOSE [id number] 12:20:00 Test Item Value Reference Range Interpretation Comments POC-GLUCOSE METER 108 mg/dL 70-110 : TESTED A T [facility] 6720 (BEAKER) (test code = [facility], 1538) 52520: Senior It Security Analyst/Techni aaron ID = [id number] for ME NDIAYE STEFANI POCT-GLUCOSE [id number] 06:08:00 Test Item Value Reference Range Interpretation Comments POC-GLUCOSE METER 96 mg/dL 70-110 : TESTED A T [facility] 6720 (BEAKER) (test code = [facility], 1538) 66111: Senior It Security Analyst/Techni aaron ID = [id number] for SUGU , SHEENAMOL RAD, CHEST, 1 VIEW, NON [id number] 05:49:00Reason for exam:->chest tubesShould this be performed [...] Signed: Nakia Goldsteineport Verified Date/Time: 04/03/2019 05:49:51 [id number] 02:46:00 Test Item Value Reference Range Interpretation Comments PHOSPHORUS (BEAKER) (test code = 3.1 mg/dL 2.3-4.7 604) Senior It Security Analyst ID - SANDRA [id number] 02:46:00 Test Item Value Reference Range Interpretation Comments MAGNESIUM (BEAKER) (test code = 1.8 mg/dL 1.6-2.6 627) Senior It Security Analyst ID - SANDRA WBASIC METABOLIC [id number] 02:46:00 Test Item Value Reference Range Interpretation [...] S NOT APPLICABLE FOR DIALYSIS PATIEN TS. Senior It Security Analyst ID - SANDRA WCBC W/PLT COUNT & AUTO [id number] 02:35:00 Test Item Value Reference Range Interpretation [...] PERCENT (BEAKER) (test code = 2801) POCT-GLUCOSE [id number] 00:12:00 Test Item Value Reference Range Interpretation Comments POC-GLUCOSE METER 87 mg/dL 70-110 : TESTED A T [facility] 6720 (BEAKER) (test code = IL[place], 1538) 42506: Senior It Security Analyst/Techni aaron ID = [id number] for ARIES BOLDENL [id number] 23:01:00 Test Item Value Reference Range Interpretation Comments PARTIAL THROMBOPLASTIN TIME 88.0 seconds 22.5-36.0 H (BEAKER) (test code = 760) BASIC METABOLIC [id number] 18:04:00 Test Item Value Reference Range Interpretation [...] S NOT APPLICABLE FOR DIALYSIS PATIEN TS. Senior It Security Analyst ID - [id number] 17:41:00 Test Item Value Reference Range Interpretation Comments PARTIAL THROMBOPLASTIN TIME 75.2 seconds 22.5-36.0 H (BEAKER) (test code = 760) POCT-GLUCOSE [id number] 17:38:00 Test Item Value Reference Range Interpretation Comments POC-GLUCOSE METER 100 mg/dL 70-110 : TESTED A T [facility] 6720 (BEAKER) (test code = [facility], 1538) 57400: Senior It Security Analyst/Techni aaron ID = [id number] for ELADIA WHELAN POCT-GLUCOSE [id number] 12:31:00 Test Item Value Reference Range Interpretation Comments POC-GLUCOSE METER 88 mg/dL 70-110 : TESTED A T [facility] 6720 (BEAKER) (test code = [facility], 1538) 15818: Senior It Security Analyst/Techni aaron ID = [id number] for PEG BLUM ELADIA RAD, CHEST, 1 VIEW, NON [id number] 09:47:00Reason for exam:->naShould this be performed at the bedside?->YesFINAL REPORT Comparison: 04/01/2019 TECHNIQUE: Single view of the chest FINDINGS: Patchy interstitial opacities and small pleural effusions, right greater than left are stable. No gross pneumothorax. Interval removal of right internal jugular central line. Remaining support lines and tubes are stable. Signed: Aiden Gerer MDReport Verified Date/Time: 04/02/2019 09:47:11 Reading Location: [facility] Radiology Reading Room 09:47 [id number] 08:29:00 Test Item Value Reference Range Interpretation Comments PARTIAL THROMBOPLASTIN TIME 41.5 seconds 22.5-36.0 H (BEAKER) (test code = 760) POCT-GLUCOSE [id number] 05:53:00 Test Item Value Reference Range Interpretation Comments POC-GLUCOSE METER 96 mg/dL 70-110 : TESTED A T [facility] 6720 (BEAKER) (test code = [facility], 1538) 15859: Senior It Security Analyst/Techni aaron ID = [id number] for SUGU , SHEENAMOL [id number] 02:06:00 Test Item Value Reference Range Interpretation Comments PARTIAL THROMBOPLASTIN TIME 75.8 seconds 22.5-36.0 H (BEAKER) (test code = 760) [id number] 01:58:00 Test Item Value Reference Range Interpretation Comments PHOSPHORUS (BEAKER) (test code = 3.3 mg/dL 2.3-4.7 604) Senior It Security Analyst ID - [id number] 01:58:00 Test Item Value Reference Range Interpretation Comments MAGNESIUM (BEAKER) (test code = 1.8 mg/dL 1.6-2.6 627) Senior It Security Analyst ID - ASBASIC METABOLIC [id number] 01:58:00 Test Item Value Reference Range Interpretation [...] S NOT APPLICABLE FOR DIALYSIS PATIEN TS. Senior It Security Analyst ID - ASBLOOD GAS, [id number] 01:35:00 Test Item Value Reference Range Interpretation [...] 21.0 % CBC W/PLT COUNT & AUTO [id number] 01:35:00 Test Item Value Reference Range Interpretation [...] PERCENT (BEAKER) (test code = 2801) POCT-GLUCOSE [id number] 00:00:00 Test Item Value Reference Range Interpretation Comments POC-GLUCOSE METER 100 mg/dL 70-110 : TESTED A T [facility] 6720 (BEAKER) (test code [facility], = 1538) 79422: Senior It Security Analyst/Techni aaron ID = [id number] for SUGU , SHEENAMOL BASIC METABOLIC [id number] 19:33:00 Test Item Value Reference Range Interpretation [...] S NOT APPLICABLE FOR DIALYSIS PATIEN TS. Senior It Security Analyst ID - [id number] 19:04:00 Test Item Value Reference Range Interpretation Comments PARTIAL THROMBOPLASTIN TIME 57.5 seconds 22.5-36.0 H (BEAKER) (test code = 760) POCT-GLUCOSE [id number] 18:18:00 Test Item Value Reference Range Interpretation Comments POC-GLUCOSE METER 105 mg/dL 70-110 : TESTED A T [facility] 6720 (BEAKER) (test code = ILDA [place] [facility], 1538) 95216: Senior It Security Analyst/Techni aaron ID = [id number] for [place] LLIAMS ELADIA POCT-GLUCOSE [id number] 11:54:00 Test Item Value Reference Range Interpretation Comments POC-GLUCOSE METER 90 mg/dL 70-110 : TESTED A T [facility] 6720 (BEAKER) (test code = ILDA [place] [facility], 1538) 39497: Senior It Security Analyst/Techni aaron ID = [id number] for PEG IAMS, ELADIA [id number] 11:32:00 Test Item Value Reference Range Interpretation Comments PARTIAL THROMBOPLASTIN TIME 70.7 seconds 22.5-36.0 H (BEAKER) (test code = 760) RAD, CHEST, 1 VIEW, NON [id number] 10:46:00Reason for exam:->CT in placeShould this be [...] contours. Stable surgical changes.Additional findings: None. Signed: Yonathan Garcia MDRepanni Verified Date/Time: 04/01/2019 10:46:42 Reading Location: [facility] Radiology Reading Room Legionella [id number] 10:17:00 Test Item Value Reference Range Interpretation Comments Result (test code = No Legionella species 6463-4) isolated [facility] [id number] 10:17:00 Test Item Value Reference Range Interpretation Comments CULTURE (BEAKER) No Legionella species (test code = 1095) isolated POCT-GLUCOSE [id number] 06:39:00 Test Item Value Reference Range Interpretation Comments POC-GLUCOSE METER 100 mg/dL 70-110 : TESTED A T [facility] 6720 (BEAKER) (test code [facility]ANIEL [facility], = 1538) 69918: Senior It Security Analyst/Techni aaron ID = [id number] for SUGU , SHEENAMOL [id number] 04:13:00 Test Item Value Reference Range Interpretation Comments PARTIAL THROMBOPLASTIN TIME 108.7 seconds 22.5-36.0 H (BEAKER) (test code = 760) BLOOD GAS, [id number] 04:03:00 Test Item Value Reference Range Interpretation [...] (BEAKER) (test code = 1819) 21.0 % [id number] 03:53:00 Test Item Value Reference Range Interpretation Comments PHOSPHORUS (BEAKER) (test code = 3.9 mg/dL 2.3-4.7 604) Senior It Security Analyst ID - ELISSA [id number] 03:53:00 Test Item Value Reference Range Interpretation Comments MAGNESIUM (BEAKER) (test code = 2.1 mg/dL 1.6-2.6 627) Senior It Security Analyst ID - ELISSA MBASIC METABOLIC [id number] 03:53:00 Test Item Value Reference Range Interpretation [...] S NOT APPLICABLE FOR DIALYSIS PATIEN TS. Senior It Security Analyst ID - ELISSA MCBC W/PLT COUNT & AUTO [id number] 03:44:00 Test Item Value Reference Range Interpretation [...] PERCENT (BEAKER) (test code = 2801) POCT-GLUCOSE [id number] 00:02:00 Test Item Value Reference Range Interpretation Comments POC-GLUCOSE METER 87 mg/dL 70-110 : TESTED A T [facility] 6720 (BEAKER) (test code = [facility], 1538) 83011: Senior It Security Analyst/Techni aaron ID = [id number] for SUGU , SHEENAMOL [id number] 22:40:00 Test Item Value Reference Range Interpretation Comments PARTIAL THROMBOPLASTIN TIME 43.8 seconds 22.5-36.0 H (BEAKER) (test code = 760) [id number] 20:55:00 Test Item Value Reference Range Interpretation Comments PARTIAL THROMBOPLASTIN TIME 115.9 seconds 22.5-36.0 H (BEAKER) (test code = 760) POCT-GLUCOSE [id number] 18:19:00 Test Item Value Reference Range Interpretation Comments POC-GLUCOSE METER 92 mg/dL 70-110 : TESTED A T [facility] 6720 (BEAKER) (test code = [facility], 1538) 04993: Senior It Security Analyst/Techni aaron ID = [id number] for KEN KEARNEYA [id number] 16:03:00Medical Cytology Report Case: [id number] Authorizing Provider: Jerald Bartlett Collected: 03/28/2019 0803 MD Devonte Ordering Location: [place] [address] ICU Received: 03/28/2019 1332 Pathologist: Lexus Robbins MD Specimen: Pleural PLEURAL FLUID (CYTOSPINS): - RARE REACTIVE MESOTHELIAL CELLS PRESENT IN A BACKGROUND OF ABUNDANT ACUTE INFLAMMATION Signing Pathologist Direct Phone Line: [phone] signed by Lexus Robbins MD on 03/31/2019 at 4:03 [id number] effusion; HFpEF, bioprosthetic valve, COPD, Afib, and chronic right pleural effusion who presented to OSH on 03/11 w/ respiratory failure and now bilateral pleural effusionsPLEURAL FLUID (LATERALITY NOT DESIGNATED)Received 20 ml dark orange fluidPrepared 4 cytospinsCollected: [id number]: [id number].[facility], Department of Pa thology, [address] [place] [address], [facility], [facility] of [facility], [address] [place] [address], [facility], Department of Pathology, [address] [place] [address], Nbunhzea I 2019-03-31 14:43:00 Test Item Value Reference Range Interpretation Comments Troponin I (test code = 0.20 ng/mL 0-0.03 17681-4) DORI (test code = DORI) Troponin I (TnI) levels must be interpreted [...] failure, acidosis, acute neurological disease, and persistent tachyarrhythmia.Traceya [facility] F Lab Interpretation (test Abnormal code = 30113-5) [facility] [id number] 14:43:00 Test Item Value Reference Range Interpretation Comments TROPONIN I (BEAKER) (test code = 0.20 ng/mL 0.00-0.03 HH 397) Troponin I (TnI) [...] failure, acidosis, acute neurological disease, and persistent tachyarrhythmia.Senior It Security Analyst ID Sultana SCOTT FCOMPREHENSIVE METABOLIC [id number] 14:39:00 Test Item Value Reference Range Interpretation [...] S NOT APPLICABLE FOR DIALYSIS PATIEN TS. Senior It Security Analyst ANGELI SCOTT [id number] 14:33:00 Test Item Value Reference Range Interpretation Comments PHOSPHORUS (BEAKER) (test code = 3.7 mg/dL 2.3-4.7 604) Senior It Security Analyst ID - SONIA [id number] 14:33:00 Test Item Value Reference Range Interpretation Comments MAGNESIUM (BEAKER) (test code = 2.1 mg/dL 1.6-2.6 627) Senior It Security Analyst ID - SONIA FBASIC METABOLIC [id number] 14:33:00 Test Item Value Reference Range Interpretation [...] S NOT APPLICABLE FOR DIALYSIS PATIEN TS. [id number] 14:31:00 Test Item Value Reference Range Interpretation [...] INR is2.5-3.5 for patients wiht mechanical heart valves.[id number] 14:31:00 Test Item Value Reference Range Interpretation Comments PARTIAL THROMBOPLASTIN TIME 68.3 seconds 22.5-36.0 H (BEAKER) (test code = 760) Lactic acid, [id number] 14:30:00 Test Item Value Reference Range Interpretation Comments Lactate, Venous (test code 1.7 mmol/L 0.5-2.2 = 2872) DORI (test code = DORI) Senior It Security Analyst ID - SONIA F Lab Interpretation (test Normal code = 53611-3) [facility], [id number] 14:30:00 Test Item Value Reference Range Interpretation Comments LACTATE BLOOD VENOUS (2) (BEAKER) 1.7 mmol/L 0.5-2.2 (test code = 2872) Senior It Security Analyst ID - SONIA FRAD, CHEST, 1 VIEW, NON [id number] 12:14:00Reason for exam:->CT in placeShould this be [...] No acute osseous abnormality. Signed: Fredi Maldonado MDReport Verified Date/Time: 03/31/2019 12:14:06 Reading Location: [facility] Mammo Reading Room POCT-GLUCOSE [id number] 12:02:00 Test Item Value Reference Range Interpretation Comments POC-GLUCOSE METER 97 mg/dL 70-110 : TESTED A T [facility] 6720 (BEAKER) (test code = IL[place], 1538) [address]: Senior It Security Analyst/Techni aaron ID = [id number] for WILL IAMS, ELADIA RAD, ABDOMEN/KUB, 1 VIEW [id number] 11:36:00Reason for exam:->NGT placement FINAL REPORT RAD, ABDOMEN/KUB, 1 VIEW AP INDICATION: NGT placement COMPARISON: None TECHNIQUE: Limited portable radiograph of the lower chest and upper abdomen was acquired for purposes of evaluating nasogastric tube placement FINDINGS:Nasogastric tube tip overlies the stomach Signed: Yonathan Garcia MDReport Verified Date/Time: 03/31/2019 11:36:59 Reading Location: [facility] Radiology Reading Room TROPONIN [id number] 10:05:00 Test Item Value Reference Range Interpretation [...] failure, acidosis, acute neurological disease, and persistent tachyarrhythmia.Senior It Security Analyst ID - SONIA [id number] 07:11:00 Test Item Value Reference Range Interpretation Comments PARTIAL THROMBOPLASTIN TIME 44.8 seconds 22.5-36.0 H (BEAKER) (test code = 760) BLOOD GAS, [id number] 06:56:00 Test Item Value Reference Range Interpretation [...] code = 1819) 40.0 % BASIC METABOLIC [id number] 06:08:00 Test Item Value Reference Range Interpretation [...] S NOT APPLICABLE FOR DIALYSIS PATIEN TS. Senior It Security Analyst ID - EMILIE LPOCT-GLUCOSE [id number] 05:52:00 Test Item Value Reference Range Interpretation Comments POC-GLUCOSE METER 89 mg/dL 70-110 : [facility] (BEAKER[facility] (test code = ILDA Calvert [facility], 1538) 38255: Senior It Security Analyst/Techni aaron ID = [id number] for EDISON CALDWELL [id number] 05:29:00 Test Item Value Reference Range Interpretation Comments PARTIAL THROMBOPLASTIN TIME 111.7 seconds 22.5-36.0 H (BEAKER) (test code = 760) [id number] 05:27:00 Test Item Value Reference Range Interpretation Comments PHOSPHORUS (BEAKER) (test code = 3.6 mg/dL 2.3-4.7 604) Senior It Security Analyst ID - EMILIE [id number] 05:27:00 Test Item Value Reference Range Interpretation Comments MAGNESIUM (BEAKER) (test code = 2.1 mg/dL 1.6-2.6 627) Senior It Security Analyst ID - EMILIE LLACTIC ACID, [id number] 04:56:00 Test Item Value Reference Range Interpretation Comments LACTATE BLOOD VENOUS (2) (BEAKER) 1.8 mmol/L 0.5-2.2 (test code = 2872) Senior It Security Analyst ANGELI PHAN LCBC W/PLT COUNT & AUTO [id number] 04:41:00 Test Item Value Reference Range Interpretation [...] (BEAKER) (test code = 2801) BLOOD GAS, [id number] 04:30:00 Test Item Value Reference Range Interpretation [...] = 1819) 40.0 % CT, BRAIN, WITHOUT [id number] 04:20:00FINAL REPORT EXAM: CT, BRAIN, WITHOUT CONTRAST [...] characterization. Signed: Tomasa Luque VerifiedDate/Time: 03/31/2019 04:20:24 [facility] brain without IV [id number] 04:20:00Interface, External Ris In - 03/31/2019 4:22 AM CSTFINAL REPORT EXAM: CT, BRAIN, WITHOUT CONTRAST CLINICAL INDICATION: Cerebral hemorrhage suspected. TECHNIQUE: CT images fr om skull base to vertex without IV contrast. [...] recommended for further characterization. Signed: Tomasa Luque Verified Date/Time: 03/31/2019 04:20:24 Electronic ally signed by: TOMASA LUQUE MD on 03/31/2019 04:20 [facility] [id number] 02:38:00 Test Item Value Reference Range Interpretation Comments TROPONIN I ([facility]) (test code = 0.22 ng/mL [...] failure, acidosis, acute neurological disease, and persistent tachyarrhythmia.Senior It Security Analyst ID - LCBECKY LB-TYPE NATRIURETIC FACTOR (BNP)2019-03-31 02:23:00 Test Item Value Reference Range Interpretation Comments B-TYPE NATRIURETIC PEPTIDE 1761 pg/mL 0-100 H ([facility]) (test code = 700) Senior It Security Analyst ID - LCBECKY LLACTIC ACID, [id number] 02:14:00 Test Item Value Reference Range Interpretation Comments LACTATE BLOOD VENOUS (2) ([facility]) 1.8 mmol/L 0.5-2.2 (test code = 2872) Senior It Security Analyst ID - LCBECKY LPOCT-GLUCOSE [id number] 00:30:00 Test Item Value Reference Range Interpretation Comments POC-GLUCOSE METER 94 mg/dL 70-110 : TESTED A T [facility] 6720 ([facility]) (test code = ILDA Calvert [facility], 1538) 98139: Senior It Security Analyst/Techni aaron ID = [id number] for OLENA Yañez EDISON CT, CHEST WITH IV CONTRAST- PE TEST [id number] 00:25:00FINAL REPORT Comparison: CT chest dated 03/17/2019 [...] of the anterior eighth right rib. Signed: Amy Hanson MDReport Verified Date/Time: 03/31/2019 00:25:44 [facility] chest for pulmonary [id number] 00:25:00Interface, External Ris In - 03/31/2019 12:29 AM CSTFINAL REPORT Comparison:CT chest dated 03/17/2019 Indication: 53-year-old male with [...] an iterative reconstruction technique. Findings: Vascular: The studyis diagnostic to the level of the segmental pulmonary arteries. Pulmonary arteries: No evidence ofacute or chronic pulmonary embolism. Specifically, the pulmonary arteries are widely patent, without evidence for filling defect or vascular cutoff. The pulmonary arteries are normal in size. Thoracicaorta: Aneurysmal dilatation of the ascending thoracic aorta measuring up to 4.9 cm. Pulmonary veins: Normal configuration. Coronary arteries: Normal configuration with mild atherosclerotic calcifications. Systemic veins: No identified thrombus. Right IJ central venous catheter with tip terminating inthe SVC. Chest: Lungs/pleura: Moderate paraseptal and centrilobular [...] left lower paratracheal lymph node measuring 1.3 cmin short axis, unchanged in the interval. The [...] changes in thoracic spine. Postsurgical changes of amedian sternotomy. Acute right anterior lateral fourth through seventh rib fractures with fracture th rough the costochondral cartilage of the anterior eighth [...] may be due to timing of contrast medina jess correlate with echocardiogram to exclude thrombus. Acute right anterior lateral fourth through seventh rib fractures with fracture through the costochondral cartilage of the anterior eighth right rib. Signed: Amy Hanson [facility] Verified Date/Time: 03/31/2019 00:25:44 [id number] 21:46:00 Test Item Value Reference Range Interpretation Comments MAGNESIUM (BEAKER) (test code = 2.1 mg/dL 1.6-2.6 627) Senior It Security Analyst ID - KENNCOMPREHENSIVE METABOLIC [id number] 21:46:00 Test Item Value Reference Range Interpretation [...] S NOT APPLICABLE FOR DIALYSIS PATIEN TS. Senior It Security Analyst ID - NTPOperator ID - CLAYTON [id number] 21:23:00 Test Item Value Reference Range Interpretation [...] failure, acidosis, acute neurological disease, and persistent tachyarrhythmia.Senior It Security Analyst ID - [id number] 21:21:00 Test Item Value Reference Range Interpretation Comments PHOSPHORUS (BEAKER) (test code = 4.5 mg/dL 2.3-4.7 604) Senior It Security Analyst ID - NTPLACTIC ACID, [id number] 21:15:00 Test Item Value Reference Range Interpretation Comments LACTATE BLOOD VENOUS (2) (BEAKER) 4.5 mmol/L 0.5-2.2 H (test code = 2872) Senior It Security Analyst ID - NTPRAD, CHEST, 1 VIEW, NON [id number] 21:13:00Reason for exam:->cardiac arrestShould this be performed [...] contours. Stable surgical changes.Additional findings: None. Signed: Amy Hanson Verified Date/Time: 03/30/2019 21:13:13 POC- Calcium [id number] 20:57:00 Test Item Value Reference Range Interpretation Comments POC-Calcium Ionized 1.63 mmol/L 1.12-1.27 TESTED A T [facility] (test code = 1536) 67[address] [facility] 7703 0 Lab Interpretation (test Abnormal code = 49306-8) [id number] 20:57:00 Test Item Value Reference Range Interpretation Comments POC-Hemoglobin (test code 9.5 g/dL 13-16.8 L TE STED AT [facility] = 1856) [address] [place] [address] [id number] AT [facility] 67[address] [facility] 7703 0 Lab Interpretation (test Abnormal code = 44767-5) [facility][id number] 20:57:00 Test Item Value Reference Range Interpretation Comments POC-Hematocrit (test code 28 % 40-50 L TE STED AT [facility] = 1857) [address] [place] [address] 7703 0 Lab Interpretation (test Abnormal code = 64418-8) [facility] [id number] 20:57:00 Test Item Value Reference Range Interpretation Comments POC-CALCIUM IONIZED 1.63 mmol/L 1.12-1.27 HH TESTED A [place] [address] ([facility]) (test code = [facility] 1536) [address] [id number] 20:57:00 Test Item Value Reference Range Interpretation Comments POC-HEMATOCRIT 28 % 40-50 L TESTED AT [place] [address] ([facility]) (test code = [facility] [address] 1857) [id number] 20:57:00 Test Item Value Reference Range Interpretation Comments POC-HEMOGLOBIN 9.5 g/dL 13.0-16.8 L TESTED AT [place] [address] ([facility]) (test code = [facility] 1856) [id number] AT [facility] 6720 [facility] [address] POC-Blood gases, [id number] 20:56:00 Test Item Value Reference Range Interpretation Comments Temp. Celsius-POC (test 36.1 code = 1834) FIO2-POC (test code = 100 TESTED AT [facility] 1835) [address] [place] [address] 7703 0 pH, Arterial-POC (test 7.320 7.350-7.450 L code = 1836) PCO2, Arterial-POC (test 61.8 35.0- 45.0 mm Hg H code = 1837) PO2, Arterial-POC (test 409.0 80.0- 90.0 mm Hg H code = 1838) SO2, Arterial-POC (test 100.0 % 96-97 H code = 1839) HCO3, Arterilal-POC 32.2 meq/L 21-29 H (test code = 1840) BE, Arterial-POC (test 6.0 meq/L -2-3 H code = 1841) Lab Interpretation (test Abnormal code = 55558-3) [facility]-[id number] 20:56:00 Test Item Value Reference Range Interpretation Comments POC-Potassium (test code 4.1 meq/L 3.6-5.5 ABUNDIO ARLENE AT [facility] = 1540) [address] [place] [address] 7703 0 Lab Interpretation (test Normal code = 79626-9) [facility]-[id number] 20:56:00 Test Item Value Reference Range Interpretation Comments POC-Sodium (test code = 147 meq/L 135-148 TEST ED AT [facility] 1542) [address] [place] [address] 7703 0 Lab Interpretation (test Normal code = 81460-4) [facility]-[id number] 20:56:00 Test Item Value Reference Range Interpretation Comments POC-Glucose (test code = 249 mg/dL 70-110 H ABUNDIO ARLENE AT [facility] 1855) [address] [place] [address] 7703 0 Lab Interpretation (test Abnormal code = 51497-2) [facility]-BLOOD GASES, [id number] 20:56:00 Test Item Value Reference Range Interpretation Comments TEMP, CELSIUS-POC 36.1 (BEAKER) (test code = 1834) FIO2-POC (BEAKER) 100 TESTED AT [facility] 6720 (test code = 1835) [facility] [place] [address] PH, ARTERIAL-POC 7.320 7.350-7.450 L (BEAKER) (test [...] H ARTERIAL-POC (BEAKER) (test code = 1841) [id number] 20:56:00 Test Item Value Reference Range Interpretation Comments POC-SODIUM (BEAKER) 147 meq/L 135-148 TESTED A T [facility] 67 (test code = 1542) [facility] [address] [id number] 20:56:00 Test Item Value Reference Range Interpretation Comments POC-POTASSIUM 4.1 meq/L 3.6-5.5 TESTED AT [facility] 6720 (BEAKER) ([facility] [address] = 1540) [id number] 20:56:00 Test Item Value Reference Range Interpretation Comments POC-GLUCOSE (BEAKER) 249 mg/dL 70-110 H TESTED AT [facility] 67 (test code = 1855) DANIEL Sheikh [facility] [address] CBC W/PLT COUNT & AUTO [id number] 20:54:00 Test Item Value Reference Range Interpretation [...] H PERCENT (BEAKER) (test code = 2801) [id number] 18:34:00 Test Item Value Reference Range Interpretation Comments PARTIAL THROMBOPLASTIN TIME 74.5 seconds 22.5-36.0 H (BEAKER) (test code = 760) POCT-GLUCOSE [id number] 18:06:00 Test Item Value Reference Range Interpretation Comments POC-GLUCOSE METER 123 mg/dL 70-110 H : TESTED A T [facility] 6720 (BEAKER) (test code = IL[place], 1538) [address]: Senior It Security Analyst/Techni aaron ID = [id number] for VILLAR YES, CRYSTAL BASIC METABOLIC [id number] 16:18:00 Test Item Value Reference Range Interpretation [...] S NOT APPLICABLE FOR DIALYSIS PATIEN TS. Senior It Security Analyst ID - [id number] 12:36:00 Test Item Value Reference Range Interpretation Comments PARTIAL THROMBOPLASTIN TIME 80.4 seconds 22.5-36.0 H (BEAKER) (test code = 760) POCT-GLUCOSE [id number] 12:00:00 Test Item Value Reference Range Interpretation Comments POC-GLUCOSE METER 116 mg/dL 70-110 H : TESTED A T [facility] 6720 (BEAKER) (test code = DOROTAMS Enrike [facility], 1538) [address]: Senior It Security Analyst/Techni aaron ID = [id number] for SA NDERS, ISABELA BLOOD [id number] 11:00:00 Test Item Value Reference Range Interpretation Comments CULTURE (BEAKER) (test No growth in 5 days code = 1095) BLOOD [id number] 11:00:00 Test Item Value Reference Range Interpretation Comments CULTURE (BEAKER) (test No growth in 5 days code = 1095) RAD, CHEST, 1 VIEW, NON [id number] 10:31:00Reason for exam:->CT in placeShould this be [...] stable. Signed: Aiden Greer MDReport Verified Date/Time: 03/30/2019 10:31:51 Reading Location: [address] Transitional Reading Room [id number] 06:59:00 Test Item Value Reference Range Interpretation Comments PARTIAL THROMBOPLASTIN TIME 53.3 seconds 22.5-36.0 H (BEAKER) (test code = 760) POCT-GLUCOSE [id number] 06:06:00 Test Item Value Reference Range Interpretation Comments POC-GLUCOSE METER 103 mg/dL 70-110 : TESTED A T [facility] 6720 (BEAKER) (test code = [place], 1538) 62990: Senior It Security Analyst/Techni aaron ID = [id number] for SILVIO BARRETT [id number] 05:16:00 Test Item Value Reference Range Interpretation Comments PHOSPHORUS (BEAKER) (test code = 3.4 mg/dL 2.3-4.7 604) Senior It Security Analyst ID - EMILIE [id number] 05:16:00 Test Item Value Reference Range Interpretation Comments MAGNESIUM (BEAKER) (test code = 2.2 mg/dL 1.6-2.6 627) Senior It Security Analyst ID - EMILIE LBASIC METABOLIC [id number] 05:16:00 Test Item Value Reference Range Interpretation [...] S NOT APPLICABLE FOR DIALYSIS PATIEN TS. Senior It Security Analyst ID - PIAYA [id number] 05:13:00 Test Item Value Reference Range Interpretation Comments PARTIAL THROMBOPLASTIN TIME 118.9 seconds 22.5-36.0 H (BEAKER) (test code = 760) CBC W/PLT COUNT & AUTO [id number] 04:58:00 Test Item Value Reference Range Interpretation [...] PERCENT (BEAKER) (test code = 2801) POCT-GLUCOSE [id number] 00:28:00 Test Item Value Reference Range Interpretation Comments POC-GLUCOSE METER 108 mg/dL 70-110 : TESTED A T [facility] 6720 (BEAKER) (test code = [facility], 1538) [address]: Senior It Security Analyst/Techni aaron ID = [id number] for SILVIO BARRETT POCT-GLUCOSE [id number] 18:26:00 Test Item Value Reference Range Interpretation Comments POC-GLUCOSE METER 90 mg/dL 70-110 : TESTED A T [facility] 6720 (BEAKER) (test code = [facility], 1538) 56099: Senior It Security Analyst/Techni aaron ID = [id number] for ISABELA LE BASIC METABOLIC [id number] 12:56:00 Test Item Value Reference Range Interpretation [...] S NOT APPLICABLE FOR DIALYSIS PATIEN TS. Senior It Security Analyst ID - PIAYA LPOCT-GLUCOSE [id number] 12:30:00 Test Item Value Reference Range Interpretation Comments POC-GLUCOSE METER 109 mg/dL 70-110 : TESTED A T [facility] 6720 (BEAKER) (test code = [facility], 1538) 89170: Senior It Security Analyst/Techni aaron ID = [id number] for ISABELA STREET RAD, CHEST, 1 VIEW, NON [id number] 09:49:00Reason for exam:->ETT, chest tubesShould this be [...] MDReport Verified Date/Time: 03/29/2019 09:49:18 Reading Location: [address] Transitional Reading Room POCT-GLUCOSE [id number] 06:12:00 Test Item Value Reference Range Interpretation Comments POC-GLUCOSE METER 115 mg/dL 70-110 H : TESTED A T [facility] 6720 (BEAKER) (test code = [facility], 1538) 79461: Senior It Security Analyst/Techni aaron ID = [id number] for VAL KULKARNI BASIC METABOLIC [id number] 04:51:00 Test Item Value Reference Range Interpretation [...] S NOT APPLICABLE FOR DIALYSIS PATIEN TS. Senior It Security Analyst ID - PIAYA LCBC W/PLT COUNT & AUTO [id number] 04:44:00 Test Item Value Reference Range Interpretation [...] 0-1 PERCENT (BEAKER) (test code = 2801) [id number] 04:43:00 Test Item Value Reference Range Interpretation Comments PHOSPHORUS (BEAKER) (test code = 4.4 mg/dL 2.3-4.7 604) Senior It Security Analyst ID - LCBECKY [id number] 04:43:00 Test Item Value Reference Range Interpretation Comments MAGNESIUM (BEAKER) (test code = 2.2 mg/dL 1.6-2.6 627) Senior It Security Analyst ID - LCBECKY [id number] 04:39:00 Test Item Value Reference Range Interpretation Comments PARTIAL THROMBOPLASTIN TIME 83.9 seconds 22.5-36.0 H (BEAKER) (test code = 760) POCT-GLUCOSE [id number] 00:34:00 Test Item Value Reference Range Interpretation Comments POC-GLUCOSE METER 112 mg/dL 70-110 H : TESTED A T [facility] 6720 (BEAKER) (test code = [place], 1538) 68[address]: Senior It Security Analyst/Techni aaron ID = [id number] for VAL KULKARNI LEVEL, [id number] 23:23:00 Test Item Value Reference Range Interpretation Comments VANCOMYCIN TROUGH (BEAKER) (test 17.0 ug/mL 10.0-20.0 code = 522) Senior It Security Analyst ID - [id number] 21:15:00 Test Item Value Reference Range Interpretation Comments PARTIAL THROMBOPLASTIN TIME 84.7 seconds 22.5-36.0 H (BEAKER) (test code = 760) POCT-GLUCOSE [id number] 17:46:00 Test Item Value Reference Range Interpretation Comments POC-GLUCOSE METER 110 mg/dL 70-110 : TESTED A T [facility] 6720 (BEAKER) (test code = [place], 1538) 799[address]: Senior It Security Analyst/Techni aaron ID = [id number] for SLIME COLEY BASIC METABOLIC [id number] 16:41:00 Test Item Value Reference Range Interpretation [...] S NOT APPLICABLE FOR DIALYSIS PATIEN TS. Senior It Security Analyst ID - AARUDDY, DRAINAGE TUBE CHANGE (GASTRO, NEPHRO OR BILIARY) [...] blood loss: < 5 cc. Specimen: None. twisting machine operator: Nato Dang MD. Carton Folder: Lauren. Fluoroscopy Time: 0.5 min.Reference Air Kerma [...] removed over the guidewire. A new 8.5 [place] Cook multipurpose drainage catheter was advanced over [...] a right pleural pigtail drainage catheter. Signed: Ntao Dang MDReport Verified Date/Time: 03/28/2019 14:57:26 Reading Location: [facility] B1 P048 Angio Body Reading Room IR Drainage Catheter [id number] 14:57:00Interface, External Ris In - 03/28/2019 2:59 PM CSTFINAL REPORT Fluoroscopic guided replacement of a right chest tube. History: Patient's right chest tube has been retracted and is poorly draining.. Modality: Fluoroscopy Sedation: None Anesthesia: Two percent Lidocaine without epinephrine. Approach: Existing right chest tube Estimated blood loss: < 5 cc. Specimen: None. twisting machine operator: Nato Dang MD. [facility]. Fluoroscopy Time: 0.5 min.Reference Air Kerma (Ka, [...] prep, a large sterile sheet to cover theareas of the patient that were not prepped, and hand hygiene, mask, head covering, and sterile gown for performing radiologist and scrub technologist. A guidewire was inserted through the patient's existing right chest tube under fluoroscopic control and into the right pleural space. The existing chest tube was then removed over the guidewire. A new 8.5 [place] Cook multipurpose drainage catheter wasadvanced over the guidewire and into the right pleural space. The guidewire was removed and the pigtail was locked. Serosanguineous fluid was aspirated. The catheter was connected to a atrium pleura vac and secured to patient's skin with 2-0 silk. The patient tolerated the procedure well without evidence of immediate competition. Impression: Technically successful and uncomplicated fluoroscopic guided exchange of a right pleural pigtail drainage catheter. Signed: Nato Dang MDReport Verified Date/Time: 03/28/2019 14:57:26 Reading Location: [place] [address] Angio Body Reading Room [facility] [id number] 14:39:00 Test Item Value Reference Range Interpretation Comments PARTIAL THROMBOPLASTIN TIME 77.6 seconds 22.5-36.0 H (BEAKER) (test code = 760) POCT-GLUCOSE [id number] 13:05:00 Test Item Value Reference Range Interpretation Comments POC-GLUCOSE METER 96 mg/dL 70-110 : TESTED A T [facility] 6720 (BEAKER) (test code = [place], 1538) 732[address]: Senior It Security Analyst/Techni aaron ID = [id number] for ASAEL N, SLIME RAD, CHEST, 1 VIEW, NON [id number] 06:59:00Reason for exam:->ETT, chest tubesShould this be [...] MDReport Verified Date/Time: 03/28/2019 06:59:41 Reading Location: [facility] Radiology Reading Room [id number] 06:54:00 Test Item Value Reference Range Interpretation Comments PARTIAL THROMBOPLASTIN TIME 36.3 seconds 22.5-36.0 H (BEAKER) (test code = 760) [id number] 05:09:00 Test Item Value Reference Range Interpretation Comments PARTIAL THROMBOPLASTIN TIME 111.4 seconds 22.5-36.0 H (BEAKER) (test code = 760) [id number] 05:05:00 Test Item Value Reference Range Interpretation Comments PHOSPHORUS (BEAKER) (test code = 5.0 mg/dL 2.3-4.7 H 604) Senior It Security Analyst ID - SANDRA [id number] 05:05:00 Test Item Value Reference Range Interpretation Comments MAGNESIUM (BEAKER) (test code = 2.2 mg/dL 1.6-2.6 627) Senior It Security Analyst ID - SANDRA WBASIC METABOLIC [id number] 05:05:00 Test Item Value Reference Range Interpretation [...] S NOT APPLICABLE FOR DIALYSIS PATIEN TS. Senior It Security Analyst ID - SANDRA WCBC W/PLT COUNT & AUTO [id number] 05:01:00 Test Item Value Reference Range Interpretation [...] 0-1 PERCENT (BEAKER) (test code = 2801) pH, body [id number] 03:46:00 Test Item Value Reference Range Interpretation Comments pH, Body Fluid 7.5 (test code = 2748-2) PH FLUID TYPE Body fluid Reference (test code = range:Reference 81306-3) ranges have not been established on thistype of flu id for this test. DORI (test code Performing Lab = DORI) *RYLEY MONTA[facility], [address] [place] [address] Pearl Kent MD, PhD [facility] [id number] 00:25:00 Test Item Value Reference Range Interpretation Comments POC-GLUCOSE METER 114 mg/dL 70-110 H : TESTED A T [facility] 6720 (BEAKER) (test code = [facility], 1538) 22539: Senior It Security Analyst/Techni aaron ID = [id number] for EDISON BELTRAN POCT-GLUCOSE [id number] 17:52:00 Test Item Value Reference Range Interpretation Comments POC-GLUCOSE METER 111 mg/dL 70-110 H : TESTED A T [facility] 6720 (BEAKER) (test code = [facility], 1538) 91683: Senior It Security Analyst/Techni aaron ID = [id number] for [place] LLIAMS, ELADIA BASIC METABOLIC [id number] 17:02:00 Test Item Value Reference Range Interpretation [...] S NOT APPLICABLE FOR DIALYSIS PATIEN TS. Senior It Security Analyst ID - [id number] 12:34:00 Test Item Value Reference Range Interpretation Comments PARTIAL THROMBOPLASTIN TIME 82.8 seconds 22.5-36.0 H (BEAKER) (test code = 760) Sputum Culture + Gram [id number] 11:50:00 Test Item Value Reference Range Interpretation Comments Result (test code = See comment 6463-4) Gram Stain Result No organisms seen (test code = 1123) DORI (test code = 2+ YeastNo Normal DORI) respiratory rigo present [facility] [id number] 11:50:00 Test Item Value Reference Range Interpretation Comments CULTURE (BEAKER) (test See comment code = 1095) GRAM STAIN RESULT 4+ WBCs (BEAKER) (test code = 1123) GRAM STAIN RESULT 0-5 epithelial cells (BEAKER) (test code = 190865) GRAM STAIN RESULT No organisms seen (BEAKER) (test code = 580941) 2+ YeastNo Normal respiratory rigo presentPOCT-GLUCOSE [id number] 11:42:00 Test Item Value Reference Range Interpretation Comments POC-GLUCOSE METER 117 mg/dL 70-110 H : Pt. refu sed rpt tst: (BEAKER) (test code = TESTED AT [facility] 6794 1538) [place], [address]: Senior It Security Analyst/Techni aaron ID = [id number] for ELADIA WHELAN BLOOD [id number] 11:00:00 Test Item Value Reference Range Interpretation Comments CULTURE (BEAKER) (test No growth in 5 days code = 1095) BLOOD [id number] 11:00:00 Test Item Value Reference Range Interpretation Comments CULTURE (BEAKER) (test No growth in 5 days code = 1095) Adenosine Deaminase, [id number] 10:22:00 Test Item Value Reference Interpretation Comments Range Adenosine Deaminase 39.6 U/L <9.2 H REFERE NCE INTERVAL: (test code = ADENOSINE DEAMI NASE ) Tuberculosis mean 92.1 U/L Metastatic malignancies me an 23.3 U/L Mesotheli omas mean 34. 9 U/L Pulmonary embol ism mean 23.8 U/L Lymphoma mean 64.3 U/L This test was perfor med using a kit jennifer t has notbeen cleared or approved by the FDA. Theanalytical performance characteristics of thistest have b een determined by [employer] [place]. This test shouldnot be us ed for diagnosis witho ut confirmation by other medically estab lished means. DORI (test code = Performing Lab DORI) 15 [employer] [facility], [address] [place] [address] [place] [address] Pearl Kent MD, PhD Lab Interpretation Abnormal (test code = 04216-2) [facility], NON [id number] 06:18:00 Reason for exam:->ETT, chest tubesShould this be performed [...] Tomasa Luque MDReport Verified Date/Time: 03/27/2019 06:18:48 [id number] 06:00:00 Test Item Value Reference Range Interpretation Comments PARTIAL THROMBOPLASTIN TIME 82.3 seconds 22.5-36.0 H (BEAKER) (test code = 760) BASIC METABOLIC [id number] 05:35:00 Test Item Value Reference Range Interpretation [...] S NOT APPLICABLE FOR DIALYSIS PATIEN TS. Senior It Security Analyst ID - ELISSA MSpecimen slightly [id number] 05:33:00 Test Item Value Reference Range Interpretation Comments PHOSPHORUS (BEAKER) (test code = 4.7 mg/dL 2.3-4.7 604) Senior It Security Analyst ID - ELISSA [id number] 05:33:00 Test Item Value Reference Range Interpretation Comments MAGNESIUM (BEAKER) (test code = 2.2 mg/dL 1.6-2.6 627) Senior It Security Analyst ID - ELISSA MCBC W/PLT COUNT & AUTO [id number] 05:19:00 Test Item Value Reference Range Interpretation [...] PERCENT (BEAKER) (test code = 2801) POCT-GLUCOSE [id number] 05:17:00 Test Item Value Reference Range Interpretation Comments POC-GLUCOSE METER 118 mg/dL 70-110 H : TESTED A T [facility] 6720 (BEAKER) (test code = ILDA Calvert [facility], 1538) [address]: Senior It Security Analyst/Techni aaron ID = [id number] for NEDA GARLAND [id number] 20:41:00 Test Item Value Reference Range Interpretation Comments PARTIAL THROMBOPLASTIN TIME 36.4 seconds 22.5-36.0 H (BEAKER) (test code = 760) Glucose Pleural [id number] 19:27:00 Test Item Value Reference Range Interpretation Comments Glucose, 29 mg/dL SAMPLE SLIGHTLY Pleural Fluid LIPEMIC.SAMPLE (test code = MODERATELY 2346-5) HEMOLYZED. Refe rence range approxima abundio that found in s joseph. DORI (test code Performing Lab = DORI) EZ [facility] [address] [place] [address] Anne Luna MD, PhD, SOTO [facility] HospitalPOCT-GLUCOSE [id number] 18:31:00 Test Item Value Reference Range Interpretation Comments POC-GLUCOSE METER 97 mg/dL 70-110 : TESTED A T [facility] 6720 (BEAKER) (test code = ILDA Calvert [facility], 1538) [address]: Senior It Security Analyst/Techni aaron ID = [id number] for ISABELA LE BASIC METABOLIC [id number] 18:22:00 Test Item Value Reference Range Interpretation [...] S NOT APPLICABLE FOR DIALYSIS PATIEN TS. Senior It Security Analyst ID - BSSpecimen slightly ictericUrine [id number] 14:01:00 Test Item Value Reference Range Interpretation Comments Result (test code = 6463-4) No growth [id number] 13:23:00 Test Item Value Reference Range Interpretation Comments PARTIAL THROMBOPLASTIN TIME 40.6 seconds 22.5-36.0 H (BEAKER) (test code = 760) POCT-GLUCOSE [id number] 12:06:00 Test Item Value Reference Range Interpretation Comments POC-GLUCOSE METER 113 mg/dL 70-110 H : TESTED A T [facility] 6720 (BEAKER) (test code = ILDA Calvert [place], 1538) [address]: Senior It Security Analyst/Techni aaron ID = [id number] for ISABELA STREET [id number] 10:59:00 Test Item Value Reference Range Interpretation Comments PARTIAL THROMBOPLASTIN TIME 61.4 seconds 22.5-36.0 H (BEAKER) (test code = 760) 2D Echo W/Doppler(CW/PW/Color)2019-03-26 08:34:44Ejection FractionSLEH ECHO HEARTLAB MKCKESSON CPACSInterface, External Ris In - 03/26/2019 8:35 AM C STTransthoracic Echocardiography Report (TTE) Demographics Patient Name JOHN DELUNA Date of Study 03/25/2019 Gender Male Visit Number [id number] Race Unknown Room Number 7102 Number Date of 1955 Referring Physician Jerald Christensen Age 63 year(s) 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 Amount - 3 mlHeight:69 inches Weight: 107.05 kg (236 lbs) BSA: 2.22 m^2 BMI: 34.85kg/m^2HR: 109 bpm BP: 90/58 mmHg Summary 1. The left ventricle is chamber size (by vol index) is normal with no evidence of LV hypertrophy.All of the LV segments are hyperkinetic . LVEF by Aplumbo's method of disk assessment is increased (& gt;70%) . LV diastolic function is indeterminate. 2. [...] is normal. No evidence of LV hypertrophy. All of the LV segments are hyperkinetic . LVEF by Palumbo's method of disk assessment is increased (>70%) . LV diastolic function is indeterminate. Left Atrium LA size is moderately enlarged . Right Ventricle RV not well visualized. Normal size and function in limited views. Right Atrium RA size is normal. Aortic Valve s/p bioprosthetic AVR well seated with expected gradients (peak velocity 1.2 m/s, mean gradient 2 mmHg). Trace aortic regurgitation. Mitral Valve Moderate mitral annular calcification. Mitral valve mean gradient 5 mmHg at heart rate of 120 bpm. Tricuspid Valve The tricuspid valve is not well visualized. Unable to estimate peak systolic PA pressure; inadequate TR velocity signal. Pulmonic Valve PV is not well visualized. A trace of pulmonary regurgitation. No evidence of PV stenosis. Aorta Aortic root size (SInus of Valsalva diameter) is normal .Pericardium No significant pericardial effusion is visualized. IVC/SVC/PA/PV/Pleural The inferior vena cava size is increased . [...] mmHg Mean Gradient: 2.63 mmHg AV Area (continuity):3.1 cm^2 AV VTI: 19.37 cm AV DVI: 0.97 LVOT Peak Velocity: 1.04 m/s Peak Gradient: 4.34 mmHg Mean Velocity: 0.74 m/s Mean Gradient: 2.43 mmHg LVOT Diameter: 2.02 cm LVOT VTI: 18.77 cm LVOT Area: 3.2 cm^2 LVOT SV:60.12 ml LVOT CO: 6.55 l/min LVOT CI: 2.95 l/min/m^2 Tricuspid ValveCHI O'Connor Hospital-GLUCOSE METER 2019-03-26 06:53:00 Test Item Value Reference Range Interpretation Comments POC-GLUCOSE METER 112 mg/dL 70-110 H : TESTED A T [facility] 6720 (BEAKER) (test code = IL[place], 1538) [address]: Senior It Security Analyst/Techni aaron ID = [id number] for MO LC, FAUSTO RAD, CHEST, 1 VIEW, NON [id number] 05:01:00Reason for exam:->intubated w/ empyemaShould this be [...] Signed: Nakia Goldstein MDReportVerified Date/Time: 03/26/2019 05:01:34 [id number] 03:48:00 Test Item Value Reference Range Interpretation Comments PHOSPHORUS (BEAKER) (test code = 3.9 mg/dL 2.3-4.7 604) Senior It Security Analyst ID - ELISSA [id number] 03:48:00 Test Item Value Reference Range Interpretation Comments MAGNESIUM (BEAKER) (test code = 2.1 mg/dL 1.6-2.6 627) Senior It Security Analyst ID - ELISSA MBASIC METABOLIC [id number] 03:48:00 Test Item Value Reference Range Interpretation [...] S NOT APPLICABLE FOR DIALYSIS PATIEN TS. Senior It Security Analyst ID - ELISSA MSpecimen slightly [id number] 03:23:00 Test Item Value Reference Range Interpretation Comments PARTIAL THROMBOPLASTIN TIME 98.7 seconds 22.5-36.0 H (BEAKER) (test code = 760) BLOOD GAS, [id number] 03:22:00 Test Item Value Reference Range Interpretation [...] 30.0 % CBC W/PLT COUNT & AUTO [id number] 03:14:00 Test Item Value Reference Range Interpretation [...] PERCENT (BEAKER) (test code = 2801) POCT-GLUCOSE [id number] 00:13:00 Test Item Value Reference Range Interpretation Comments POC-GLUCOSE METER 115 mg/dL 70-110 H : TESTED A T [facility] 6720 (BEAKER) (test code = ILDA [place], 1538) [address]: Senior It Security Analyst/Techni aaron ID = [id number] for Barbara Grigsby BASIC METABOLIC [id number] 20:31:00 Test Item Value Reference Range Interpretation [...] S NOT APPLICABLE FOR DIALYSIS PATIEN TS. Senior It Security Analyst ID - BSSpecimen slightly ictericTriglycerides, Pleural [id number] 18:39:00 Test Item Value Reference Range Interpretation Comments TRIGLYCERIDES, 35 mg/dL See Note: Reference PLEURAL FLUID Range:CHYLOUS: (test code = >110NONCHYLOUS: 9619-8) <50SAMPLE SLIGH TLY LIPEMIC.SAMPLE MODERATELY HEMOLYZED. DORI (test code = Performing Lab DORI) EZ [employer] [facility] [address] [facility] [place] [address] Anne Luna MD, PhD, SOTO [facility] HospitalCT, CHEST, WITHOUT [id number] 18:26:00FINAL REPORT CT of the Chest, abdomen [...] Ascending thoracic aortic aneurysm. Signed: Tomasa Foss Verified Date/Time: 03/25/2019 18:26:29 Reading Location: [facility] C013[facility] CT Body Reading Room CT, [id number] 18:26:00FINAL REPORT CT of the Chest, abdomen [...] Ascending thoracic aortic aneurysm. Signed: Tomasa Foss Verified Date/Time: 03/25/2019 18:26:29 Reading Location: [facility] C013[facility] CT Body Reading Room CT abdomen/pelvis without iv [id number] 18:26:00Interface, External Ris In - 03/25/2019 6:[address] of the Chest, abdomen and pelvis dated 03/25/2019 COMPARISON: March 20, 2019 Clinical information: Pleural effusion Comment: Axial images of the chest, abdomen, and pelvis were obtained from thoracic inlet tothe pubic symphysis without GI or intravenous contrast. This exam was performed according to ourdepartmental dose-optimization program, which includes automated exposure control, adjustment of themA and/or kV according to patient size and/or use of interactive reconstruction technique. Heart is normal in size. Ascending thoracic aorta is enlarged measuring 5.2 cm in size. Descending thoracic aorta [...] is interval decrease in the amount of flowbilateral pleural effusion more pronounced on the left. Subsegmental atelectasis is seen in right and both lower lobes. The rest of the lungs are clear. Liver is normal in size. Spleen is minimally enlarged measuring 12.1 x 5.7 x 10.9 cm. Enlarged collateral veins are seen in the splenic hilum. There is splenorenal shunt. No focal lesion is seen in the liver or the spleen. Gallbladder is contracted. No gallstone or biliary dilatation is noted. Pancreas and adrenals are unremarkable. Both kidneys arenormal in size. No hydronephrosis, hydroureter, or urolithiasis is noted. A 5 mm hemorrhagic cyst is seen in the upper pole right kidney. The small and large bowel are unremarkable. Appendix is not visualized. Prostate is normal in size. The urinary bladder is contracted. There is nonspecific soft tissue stranding in the presacral pelvis. Atherosclerotic calcification is seen in the abdominal aorta a nd bilateral iliac arteries. Impression: 1. Interval decrease in the amount of bilateral pleural effusion.2. Splenomegaly.3. Portal hypertension with splenorenal shunt.4. Soft tissue stranding in the presacral pelvis.5. No loculated fluid collection in the abdomen or pelvis to suggest abscess.5. Ascend ing thoracic aortic aneurysm. Signed: Tomasa Foss MDReport Verified Date/Time: 03/25/2019 18:26:29 Reading Location: [facility] B1 C013Y CT Body Reading Room Electronically signed by: TOMASA FOSS M.D.on 03/25/2019 06:26 [facility] [id number] 18:26:00Interface, External Ris In - 03/25/2019 6:[address] of the Chest, abdomen and pelvis dated 03/25/2019 COMPARISON: March 20, 2019 Clinical information: Pleural effusion Comment: Axial images of the chest, abdomen, and pelvis were obtained from thoracic inlet tothe pubic symphysis without GI or intravenous contrast. This exam was performed according to ourdepartmental dose-optimization program, which includes automated exposure control, adjustment of themA and/or kV according to patient size and/or use of interactive reconstruction technique. Heart is normal in size. Ascending thoracic aorta is enlarged measuring 5.2 cm in size. Descending thoracic aorta [...] Liver is normal in size. Spleen is minimally enlarged measuring 12.1 x 5.7 x 10.9 cm. Enlarged collateral veins are seen in the splenic hilum. There is splenorenal shunt. No focal lesion is seen in the liver or the spleen. Gallbladder is contracted. No gallstone or biliary dilatation is noted. Pancreas and adrenals are unremarkable. Both kidneys arenormal in size. No hydronephrosis, hydroureter, or urolithiasis is noted. A 5 mm hemorrhagic cyst is seen in the upper pole right kidney. The small and large bowel are unremarkable. Appendix is not visualized. [...] MDReport Verified Date/Time: 03/25/2019 18:26:29 Reading Location: [facility] B[address] C[address] Body Reading Room Electronically signed by: TOMASA FOSS M.D.on 03/25/2019 06:26 [facility]PO[facility] [id number] 18:22:00 Test Item Value Reference Range Interpretation Comments POC-GLUCOSE METER 95 mg/dL 70-110 : TESTED A T [facility] 6720 (BEAKER) (test code = ILDA Calvert [facility], 1538) [address]: Senior It Security Analyst/Techni aaron ID = [id number] for SAND ERS, ISABELA Lactate Dehydrogenase (LD), Pleural [id number] 18:06:00 Test Item Value Reference Interpretation Comments Range Lactate >1300 See Note: U/L Reference Dehydrogenase (LD), Range:TR ANSUDATE: Pleural Fluid (test <113EXUD ATE: code = 22451-8) >113SAMPLE S LIGHTLY LIPEMIC.SAMPLE MODERATELY HEMOLYZED.This fluid sample was rece ived hemolyzed in e laboratory. Jeana n minimalhemolysi s causes signific ant increase in LD due to high levels of this enzymein red ce lls. Please interpre t result with caution.RESULTS CONFIRMED BY RE PEAT ANALYSIS. DORI (test code = Performing Lab DORI) EZ [facility] [address] [place] [address] Anne Luna MD, PhD, SOTO [facility]RAD, CHEST, 1 VIEW, NON [id number] 16:20:00 Reason for exam:->Central Line PlacementShould this be performed [...] MDReport Verified Date/Time: 03/25/2019 16:20:19 Reading Location: [facility] B1 C013W Consult Reading Room [id number] 15:56:00 Test Item Value Reference Range Interpretation Comments PARTIAL THROMBOPLASTIN TIME 83.0 seconds 22.5-36.0 H (BEAKER) (test code = 760) BRONCHIAL CULTURE + GRAM [id number] 12:23:00 Test Item Value Reference Range Interpretation Comments CULTURE (BEAKER) See comment (test code = 1095) GRAM STAIN RESULT 4+ WBCs (BEAKER) (test code = 1123) GRAM STAIN RESULT <1+ yeast with (BEAKER) (test code pseudohyphae = 586232) 2+ Yeast with feetNo Normal respiratory rigo [...] S NOT APPLICABLE FOR DIALYSIS PATIEN TS. Senior It Security Analyst ID - LENNY DONOVAN GAS, [id number] 12:00:00 Test Item Value Reference Range Interpretation [...] (test code = 1819) 30.0 % POCT-GLUCOSE [id number] 11:51:00 Test Item Value Reference Range Interpretation Comments POC-GLUCOSE METER 114 mg/dL 70-110 H : TESTED A T [facility] 6720 (BEAKER) (test code = ILDA [place], 1538) [address]: Senior It Security Analyst/Techni aaron ID = [id number] for SA MONTILLA, ISABELA BODY FLUID CULTURE + GRAM [id number] 10:54:00 Test Item Value Reference Range Interpretation Comments CULTURE (BEAKER) (test code No growth = 1095) GRAM STAIN RESULT (BEAKER) 2+ WBCs (test code = 1123) GRAM STAIN RESULT (BEAKER) No organisms seen (test code = 77346) BODY FLUID CULTURE + GRAM [id number] 10:54:00 Test Item Value Reference Range Interpretation Comments CULTURE (BEAKER) (test code No growth = 1095) GRAM STAIN RESULT (BEAKER) 1+ WBCs (test code = 1123) GRAM STAIN RESULT (BEAKER) No organisms seen (test code = 26525) Urinalysis w/Microscopic + Reflex to [id number] 10:03:00 Test Item Value Reference Range Interpretation Comments Color, UA (test code = Yellow 5778-6) Clarity, UA (test code = Hazy 5767-9) Specific Brimley, UA (test 1.018 1.001-1.035 code = 5811-5) pH, UA (test code = 5.5 5.0-8.0 5803-2) Protein, UA (test code = 50 mg/dL Negative A 32982-5) Glucose, UA (test code = Negative Negative 365) Ketones, UA (test code = Negative Negative 2514-8) Bilirubin, UA (test code = Negative Negative 71003-6) Blood, UA (test code = Small Negative A 82033-6) Nitrite, UA (test code = Negative Negative 5802-4) Leukocytes, UA (test code Large Negative A = 5799-2) Urobilinogen, UA (test 6.0 mg/dL 0.2-1 H code = 76109-3) RBC, UA (test code = <1 /HPF 78306-0) WBC, UA (test code = 54 /HPF 5821-4) Bacteria, UA (test code = Few 27066-3) Mucus (test code = 8247-9) Few Squam Epithel, UA (test <1 /HPF code = 67978-2) Hyaline Casts, UA (test 1 /LPF code = 95984-3) Specimen Source (test code = 2795) DORI (test code = DORI) Senior It Security Analyst ID - [auto]Senior It Security Analyst ID - ramya Lab Interpretation (test Abnormal code = 91036-5) [facility]/ REFLEX URINE [id number] 10:03:00 Test Item Value Reference Range Interpretation [...] /LPF 514) SOURCE(BEAKER) (test code = 2795) Senior It Security Analyst ID - [auto]Senior It Security Analyst ID - [id number] 09:58:00 Test Item Value Reference Range Interpretation Comments PARTIAL THROMBOPLASTIN TIME 83.1 seconds 22.5-36.0 H (BEAKER) (test code = 760) BLOOD [id number] 07:00:00 Test Item Value Reference Range Interpretation Comments CULTURE (BEAKER) (test No growth in 5 days code = 1095) RAD, CHEST, 1 VIEW, NON [id number] 06:48:00Reason for exam:->intubated w/ empyemaShould this be [...] findings: None. Signed: Tomasa Luqueeport Verified Date/Time: 03/25/2019 06:48:46 POCT-GLUCOSE [id number] 06:17:00 Test Item Value Reference Range Interpretation Comments POC-GLUCOSE METER 101 mg/dL 70-110 : TESTED A T [facility] 6720 (BEAKER) (test code [facility], = 1538) [address]: Senior It Security Analyst/Techni aaron ID = [id number] for JACKSON BOLDEN CBC W/PLT COUNT & AUTO [id number] 04:23:00 Test Item Value Reference Range Interpretation [...] PERCENT (BEAKER) (test code = 2801) BLOOD [id number] 04:02:00 Test Item Value Reference Range Interpretation Comments CULTURE (BEAKER) (test No growth in 5 days code = 1095) BASIC METABOLIC [id number] 03:59:00 Test Item Value Reference Range Interpretation [...] S NOT APPLICABLE FOR DIALYSIS PATIEN TS. Senior It Security Analyst ID - ELISSA MSpecimen slightly [id number] 03:57:00 Test Item Value Reference Range Interpretation Comments PHOSPHORUS (BEAKER) (test code = 2.8 mg/dL 2.3-4.7 604) Senior It Security Analyst ID - ELISSA [id number] 03:57:00 Test Item Value Reference Range Interpretation Comments MAGNESIUM (BEAKER) (test code = 2.0 mg/dL 1.6-2.6 627) Senior It Security Analyst ID - ELISSA [id number] 03:30:00 Test Item Value Reference Range Interpretation Comments PARTIAL THROMBOPLASTIN TIME 63.6 seconds 22.5-36.0 H (BEAKER) (test code = 760) POCT-GLUCOSE [id number] 00:15:00 Test Item Value Reference Range Interpretation Comments POC-GLUCOSE METER 110 mg/dL 70-110 : TESTED A T [facility] 6720 (BEAKER) (test [facility], = 1538) [address]: Senior It Security Analyst/Techni aaron ID = [id number] for SUGU , RENETTAENAMOL [id number] 21:11:00 Test Item Value Reference Range Interpretation Comments PARTIAL THROMBOPLASTIN TIME 68.8 seconds 22.5-36.0 H (BEAKER) (test code = 760) BASIC METABOLIC [id number] 21:09:00 Test Item Value Reference Range Interpretation [...] S NOT APPLICABLE FOR DIALYSIS PATIEN TS. Senior It Security Analyst ID - JOSE Castellano slightly ictericRAD, ABDOMEN/KUB, 1 VIEW AP 2019-03-24 19:29:00Reason for exam:->NGT fell outAddendum BeginsREPORT STATUS:A Two views were obtained. Signed: Edwin Salazar MDReport Verified Date/Time: 03/24/2019 19:29:02 Reading Location: [address] Consult Reading RoomAddendum EndsFINAL REPORT Abdomen. HISTORY: Nasogastric tube fell out. COMPARISON STUDY: None available FINDINGS: A single supine view the abdomen demonstrates a nasogastric tube in place, the tip projecting over the distal stomach. No dilated loops of bowel are seen. Degenerative changes are noted. This film is insensitive for the detection of free air. Signed: Edwin Salazar MDReport Verified Date/Time: 03/24/2019 19:24:17 Reading Location: [address] Consult Reading Room POCT- GLUCOSE [id number] 18:19:00 Test Item Value Reference Range Interpretation Comments POC-GLUCOSE METER 97 mg/dL 70-110 : TESTED A T [facility] 6720 (BEAKER) (test code = ILDA Calvert [facility], 1538) [address]: Senior It Security Analyst/Techni aaron ID = [id number] for SAND ERS, ISABELA RAD, CHEST, 1 VIEW, NON [id number] 18:11:00Reason for exam:->Chest tube placement, possible dislodgementShould [...] single view. No other significant change. Signed: Edwin Salazar MDReport Verified Date/Time: 03/24/2019 18:11:57 Reading Location: [address] Consult Reading Room BODY FLUID CULTURE + GRAM [id number] 16:09:00 Test Item Value Reference Range Interpretation Comments CULTURE (BEAKER) (test No growth code = 1095) GRAM STAIN RESULT 1+ White blood cells (BEAKER) (test code = seen 1123) GRAM STAIN RESULT No organisms seen (BEAKER) (test code = 47717) BRONCHIAL CULTURE + GRAM [id number] 14:05:00 Test Item Value Reference Range Interpretation Comments CULTURE (BEAKER) (test code No growth = 1095) GRAM STAIN RESULT (BEAKER) <1+ WBCs (test code = 1123) GRAM STAIN RESULT (BEAKER) No organisms seen (test code = 79785) BASIC METABOLIC [id number] 13:09:00 Test Item Value Reference Range Interpretation [...] S NOT APPLICABLE FOR DIALYSIS PATIEN TS. Senior It Security Analyst ID - SONIA [id number] 13:04:00 Test Item Value Reference Range Interpretation Comments PARTIAL THROMBOPLASTIN TIME 58.9 seconds 22.5-36.0 H (BEAKER) (test code = 760) EEG EXTENDED MONITORING, 40-60 [id number] 12:32:00For STAT EEG- after 5 PM weekdays, weekends and holidays, page the on-call EEG TechReason for exam:-& gt;Concern for Subclinical StatusShould this be performed at the bedside?->YesDate(s) of EE03/24/2019 DATE OF REPORT: 03/24/2019ACC: [id number] Number: [id number] Location: Inpatient ICUStart time: 03/24/2019 10:42Stop time: 03/24/2019 11:23ICD-10: R56.9 CPT Code: 43767 HISTORY: 63 y.o. male with hypertension, diastolic heart failure, chronic kidney disease who was transferred to [facility] for effusions and remains altered with concern for subclinical status epilepticus. MEDICATIONS THAT COULD AFFECT EEG: Dexmedetomidine TECHNICAL SUMMARY: This is a digital video-EEG recorded with 32 input channels reviewed with bipolar and referential montages using the modifie d [employer] system nomenclature. DESCRIPTION OF RECORD: During the [...] inflammation, aftermath of earlier seizure activity, other FRUIT AND VEGETABLE PARER insult, or toxic-metabolic derangements. An EEG without epileptiform discharges does not exclude the possibility of epilepsy. If the clinical suspicion of epilepsy remains, consider additional EEG recordings. Nando Metz MDNeurophysiology Fellow Taya Martinez M.D., FACNS, FAAN, FAESProfessor of Neurology, [facility] Osteopathic ClinicDirector, [facility] CenterJohn Saab [facility] at [place], [place] EXTENDED MONITORING 40 - 60 [id number] 12:32:00Interface, External Ris In - 03/24/2019 12:32 PM CSTDate(s) of EE03/24/2019 DATE OF REPORT: 03/24/2019ACC: [id number] Number: [id number] Location: Inpatient ICUStart time: 03/24/2019 10:42Stoptime: 03/24/2019 11:23ICD-10: R56.9 CPT Code: 60806 HISTORY: 63 y.o. male with hypertension, diastolic heart failure, chronic kidney disease who was transferred to [facility] for effusions and remains altered with concern for subclinical status epilepticus. MEDICATIONS THAT COULD AFFECT EEG: Dexmedetomidine TECHNICAL SUMMARY: This is a digital video-EEG recorded with 32 input channels reviewed with bipolar and referential montages using the modified combinatorial system nomenclature. DESCRIPTION OF RECORD: During the maximally stimulated state, the background is symmetric and predominately popu lated with 2-6 Hz activity. There was no posterior dominant rhythm seen. The EEG background is spontaneously reactive and reactive to external stimulation. Poorly formed symmetric sleep structures are sporadically seen. There are occasional generalized broad based discharges with frontocentral predominance that occur with a periodic pattern of 1 to 1.5 cycles per second. SIGNIFICANT VIDEO EVENTS: None SIGNIFICANT ELECTROCARDIOGRAM EVENTS: Irregularly irregular, average HR 85. HV: Hyperventilation was not performed. PHOTIC STIMULATION: Photic stimulation was done from 1-33 Hz; no photic driving was seen; photoparoxysmal responses were absent. IMPRESSION: This is an abnormal video EEG due to: 1) Generalized slowing of background rhythms, mild- moderate. 2) Occasional, generalized periodic discharges (1 - 1.5 cycles per second) CLINICAL CORRELATION: Generalized slowing asseen in this record is consistent with an etiology non-specific mild to moderate encephalopathy. Generalized periodic discharges are a non-specific findings or cortical irritability and can be seen in the setting of ischemia, inflammation, aftermath of earlier seizure activity, other FRUIT [employer] VEGETABLE PARER insult, or toxic-metabolic derangements. An EEG without epileptiform discharges does not exclude the possibility of epilepsy. If the clinical suspicion of epilepsy remains, consider additional EEG recordings. Nando Metz MDNeurophysiology Fellow Taya Martinez M.D., FACNS, FAAN, FAESProfessor of Neurology, [facility] HospitalDirector, [facility]ilepsy CenterJohn Saab Neuro[facility] at [place], [place] [facility] HospitalPOCT-GLUCOSE [id number] 12:29:00 Test Item Value Reference Range Interpretation Comments POC-GLUCOSE METER 109 mg/dL 70-110 : TESTED A T [facility] 6720 (BEAKER) (test code = [facility], 153) 91370: Senior It Security Analyst/Techni aaron ID = [id number] for SA NDERS, ISABELA BLOOD GAS, [id number] 12:11:00 Test Item Value Reference Range Interpretation [...] (test code = 1819) 30.0 % POCT-GLUCOSE [id number] 06:09:00 Test Item Value Reference Range Interpretation Comments POC-GLUCOSE METER 122 mg/dL 70-110 H : TESTED A T [facility] 6720 (BEAKER) (test code = [facility] VersionEye [facility], 153) 28850: Senior It Security Analyst/Techni aaron ID = [id number] for DA VIS, EDISON BLOOD GAS, [id number] 05:35:00 Test Item Value Reference Range Interpretation [...] (BEAKER) (test code = 1819) 30.0 % [id number] 05:09:00 Test Item Value Reference Range Interpretation Comments PHOSPHORUS (BEAKER) (test code = 3.2 mg/dL 2.3-4.7 604) Senior It Security Analyst ID - SANDRA [id number] 05:09:00 Test Item Value Reference Range Interpretation Comments MAGNESIUM (BEAKER) (test code = 1.9 mg/dL 1.6-2.6 627) Senior It Security Analyst ID - SANDRA WBASIC METABOLIC [id number] 05:09:00 Test Item Value Reference Range Interpretation [...] S NOT APPLICABLE FOR DIALYSIS PATIEN TS. Senior It Security Analyst ID - SANDRA WSpecimen slightly [id number] 04:59:00 Test Item Value Reference Range Interpretation Comments PARTIAL THROMBOPLASTIN TIME 61.1 seconds 22.5-36.0 H (BEAKER) (test code = 760) CBC W/PLT COUNT & AUTO [id number] 04:52:00 Test Item Value Reference Range Interpretation [...] = 2801) RAD, CHEST, 1 VIEW, NON [id number] 03:57:00Reason for exam:->intubated w/ empyemaShould this be [...] MDReport Verified Date/Time: 03/24/2019 03:57:49 VANCOMYCIN LEVEL, [id number] 01:53:00 Test Item Value Reference Range Interpretation Comments VANCOMYCIN TROUGH (BEAKER) (test 17.9 ug/mL 10.0-20.0 code = 522) Senior It Security Analyst ID - SANDRA WCT, BRAIN, WITHOUT [id number] 01:31:00FINAL REPORT EXAM: CT head without contrast. [...] Goldstein MDReport Verified Date/Time: 03/24/2019 01:31:09 POCT-GLUCOSE [id number] 00:17:00 Test Item Value Reference Range Interpretation Comments POC-GLUCOSE METER 122 mg/dL 70-110 H : TESTED A T [facility] 6720 (BEAKER) (test code = [facility] [place], 1538) [address]267: Senior It Security Analyst/Techni aaron ID = [id number] for EDISON BELTRAN BASIC METABOLIC [id number] 21:04:00 Test Item Value Reference Range Interpretation [...] S NOT APPLICABLE FOR DIALYSIS PATIEN TS. Senior It Security Analyst ID - Nicholas milton ictericBASIC METABOLIC [id number] 16:30:00 Test Item Value Reference Range Interpretation [...] S NOT APPLICABLE FOR DIALYSIS PATIEN TS. Senior It Security Analyst ID - ALMA WHEPATIC FUNCTION [id number] 16:22:00 Test Item Value Reference Range Interpretation [...] (test code = 7 U/L 6-55 347) Senior It Security Analyst ID - ALMA [id number] 16:05:00 Test Item Value Reference Range Interpretation Comments AMMONIA (BEAKER) (test code = 348) 29 mol/L 18-72 Senior It Security Analyst ID - ALMA HALEYRSA [id number] 11:27:00 Test Item Value Reference Range Interpretation Comments CULTURE (BEAKER) (test code No MRSA isolated = 1095) Manual [id number] 10:18:00 Test Item Value Reference Range Interpretation Comments % Neutros (test code = 93 % 2816) % Lymphs (test code = 4 % 2817) % Monos (test code = 2 % 2818) % Atypical Lymphs (test 1 % 0-0 H code = 2829) # Neutros (test code = 22.69 K/ul 1.78-5.38 H 2830) # Lymphs (test code = 0.98 K/ul 1.32-3.57 L 2831) # Monos (test code = 0.49 K/uL 0.3-0.82 2832) # Atypical Lymphs (test 0.24 K/uL 0-0 H code = 2858) Total Counted (test code 100 = 1351) WBC Morphology (test Normal code = 487) Platelet Morphology Normal (test code = 486) Anisocytosis (test code 1+ few = 961) Poikilocytes (test code 1+ few = 966) Ovalocytes (test code = 1+ few 477) Braithwaite Cells (test code = 1+ few 474) Artifact (test code = Present 3432) Platelet Conc (test code Adequate = 3438) DORI (test code = DORI) Senior It Security Analyst ID - Mariela OverholtUser comments: Slide comments: Lab Interpretation (test Abnormal code = 78850-7) [facility] W/PLT COUNT & AUTO [id number] 10:18:00 Test Item Value Reference Range Interpretation [...] CONCENTRATION Adequate (CELLAVISION)(BEAKER) (test code = 3438) Senior It Security Analyst ID Sultana Sierra OverholtUser comments: Slide comments:SPIN/CONCENTRATION [id number] 10:03:00 Test Item Value Reference Range Interpretation Comments CONCENTRATION CHARGED (BEAKER) (test Done code = 2657) SPIN/CONCENTRATION [id number] 10:03:00 Test Item Value Reference Range Interpretation Comments CONCENTRATION CHARGED (BEAKER) (test Done code = 2657) SPIN/CONCENTRATION [id number] 10:03:00 Test Item Value Reference Range Interpretation Comments CONCENTRATION CHARGED (BEAKER) (test Done code = 2657) [id number] 07:00:00 Test Item Value Reference Range Interpretation Comments PARTIAL THROMBOPLASTIN TIME 70.1 seconds 22.5-36.0 H (BEAKER) (test code = 760) [id number] 06:46:00 Test Item Value Reference Range Interpretation Comments PHOSPHORUS (BEAKER) (test code = 2.8 mg/dL 2.3-4.7 604) Senior It Security Analyst ID Sultana FLORES [id number] 06:46:00 Test Item Value Reference Range Interpretation Comments MAGNESIUM (BEAKER) (test code = 1.9 mg/dL 1.6-2.6 627) Senior It Security Analyst ID Sultana FLORES WBASIC METABOLIC [id number] 06:46:00 Test Item Value Reference Range Interpretation [...] S NOT APPLICABLE FOR DIALYSIS PATIEN TS. Senior It Security Analyst ID - SANDRA SEWELLpecimecely slightly ictericBLOOD GAS, [id number] 06:18:00 Test Item Value Reference Range Interpretation [...] (test code = 1819) 30.0 % POCT-GLUCOSE [id number] 05:36:00 Test Item Value Reference Range Interpretation Comments POC-GLUCOSE METER 122 mg/dL 70-110 H : TESTED A T [facility] 6720 (BEAKER) (test code = [facility], 1538) [address]66: Senior It Security Analyst/Techni aaron ID = [id number] for PRASHANTH FLYNN EDISON [id number] 00:47:00 Test Item Value Reference Range Interpretation Comments PARTIAL THROMBOPLASTIN TIME 62.9 seconds 22.5-36.0 H (BEAKER) (test code = 760) POCT-GLUCOSE [id number] 00:39:00 Test Item Value Reference Range Interpretation Comments POC-GLUCOSE METER 131 mg/dL 70-110 H : TESTED A T [facility] 6720 (BEAKER) (test code = [facility], 1538) 89981: Senior It Security Analyst/Techni aaron ID = [id number] for PRASHANTH FLYNN EDISON BASIC METABOLIC [id number] 20:51:00 Test Item Value Reference Range Interpretation [...] S NOT APPLICABLE FOR DIALYSIS PATIEN TS. Senior It Security Analyst ID - ELISSA MSpecimen slightly ictericPT/[id number] 17:40:00 Test Item Value Reference Range Interpretation [...] mechanical heart valves.BODY FLUID CELL COUNT WITH [id number] 17:31:00 Test Item Value Reference Range Interpretation Comments APPEARANCE FLUID (BEAKER) (test Bloody Clear A code = 510) COLOR FLUID (BEAKER) (test code Red Colorless, Straw A = 511) RBC FLUID (BEAKER) (test code = 26355 /cu mm <=1 H 513) ADJUSTED WBC [...] (BEAKER) EDTA Tube (test code = 2873) Body fluid cell count with [id number] 17:22:00 Test Item Value Reference Range Interpretation Comments Appearance (test code = 9335-1) Bloody Clear A Color (test code = 6824-7) Red Colorless, Straw A RBCs (test code = 52030-2) 31241 <=1 /cu mm H Adjusted WBC Count (test code = 06988 <=5 /cu mm H 81741-1) Lining Cells (test code = 74885-4) 364 <=1 /cu mm H % Segs (test code = 62696-4) 85 % % Lymphs (test code = 82204-3) 4 % % Monos (test code = 24905-4) 10 % % Eos (test code = 23035-8) 1 % % Baso (test code = 15446-1) 0 % Container Body Fluid (test code = EDTA Tube 2873) Lab Interpretation (test code = Abnormal 97811-7) [facility] HospitalBODY FLUID CELL COUNT WITH [id number] 17:22:00 Test Item Value Reference Range Interpretation Comments APPEARANCE FLUID (BEAKER) (test Bloody Clear A code = 510) COLOR FLUID (BEAKER) (test code Red Colorless, Straw A = 511) RBC FLUID (BEAKER) (test code = 78728 /cu mm <=1 H 513) ADJUSTED WBC FLUID (BEAKER) 82766 /cu mm <=5 H (test code = [...] code = 2873) SPUTUM CULTURE + GRAM [id number] 13:08:00 Test Item Value Reference Range Interpretation Comments CULTURE (BEAKER) (test See comment code = 1095) GRAM STAIN RESULT 2+ WBCs (BEAKER) (test code = 1123) GRAM STAIN RESULT 0-5 epithelial cells (BEAKER) (test code = 553344) GRAM STAIN RESULT No organisms seen (BEAKER) (test code = 693213) <1+ YeastNo Normal respiratory rigo presentBASIC METABOLIC [id number] 10:04:00 Test Item Value Reference Range Interpretation [...] S NOT APPLICABLE FOR DIALYSIS PATIEN TS. Senior It Security Analyst ID - ELISSA MSpecimen slightly [id number] 10:02:00 Test Item Value Reference Range Interpretation Comments PARTIAL THROMBOPLASTIN TIME 35.5 seconds 22.5-36.0 (BEAKER) (test code = 760) 6 hours after starting heparin infusion and as indicated per sliding scaleRAD, CHEST, 1 VIEW, NON [id number] 09:09:00Reason for exam:->intubated, bilateral chest tubesShould this [...] are noted. IMPRESSION: No significant change. Signed: Edwin Salazar MDReport Verified Date/Time: 03/22/2019 09:09:11 Reading Location: [address] Ortho Consult Reading Room POCT-GLUCOSE [id number] 06:06:00 Test Item Value Reference Range Interpretation Comments POC-GLUCOSE METER 105 mg/dL 70-110 : TESTED A T [facility] 6720 (BEAKER) (test code = [place], 1538) 814[address]: Senior It Security Analyst/Techni aaron ID = [id number] for SATISH BELTRANN VANCOMYCIN LEVEL, [id number] 02:59:00 Test Item Value Reference Range Interpretation Comments VANCOMYCIN TROUGH (BEAKER) (test 15.2 ug/mL 10.0-20.0 code = 522) Senior It Security Analyst ID - JOSE [id number] 02:42:00 Test Item Value Reference Range Interpretation Comments PHOSPHORUS (BEAKER) (test code = 3.8 mg/dL 2.3-4.7 604) Senior It Security Analyst ID - JOSE [id number] 02:42:00 Test Item Value Reference Range Interpretation Comments MAGNESIUM (BEAKER) (test code = 2.0 mg/dL 1.6-2.6 627) Senior It Security Analyst ID - JOSE EBASIC METABOLIC [id number] 02:42:00 Test Item Value Reference Range Interpretation [...] S NOT APPLICABLE FOR DIALYSIS PATIEN TS. Senior It Security Analyst ID - JOSE ESpecimen slightly ictericCBC W/PLT COUNT & AUTO [id number] 02:27:00 Test Item Value Reference Range Interpretation [...] PERCENT (BEAKER) (test code = 2801) POCT-GLUCOSE [id number] 00:42:00 Test Item Value Reference Range Interpretation Comments POC-GLUCOSE METER 95 mg/dL 70-110 : TESTED A T [facility] 6720 (BEAKER) (test code = ILDA Calvert [facility], 1538) 79688: Senior It Security Analyst/Techni aaron ID = [id number] for OLENA Kunal EDISON BASIC METABOLIC [id number] 22:23:00 Test Item Value Reference Range Interpretation [...] S NOT APPLICABLE FOR DIALYSIS PATIEN TS. Senior It Security Analyst ID - BSSpecimen slightly ictericBODY FLUID CELL COUNT WITH DIFFERENTIAL 2019-03-21 20:29:00 Test Item Value Reference Range Interpretation Comments APPEARANCE FLUID (BEAKER) (test Hazy Clear A code = 510) COLOR FLUID (BEAKER) (test code Kierra Colorless, Straw A = 511) RBC FLUID (BEAKER) (test code = 25267 /cu mm <=1 H 513) ADJUSTED WBC [...] = 2873) U/S, DRAINAGE, CHEST, WITH TUBE [id number] 19:48:00Please place a 3-way stopcock on the [...] loss: < 5 cc. Specimen: Left bedside. twisting machine operator: Nato Dang MD. Carton Folder: None. Technique: Informed written consent was obtained. [...] space. Under direct ultrasound guidance an 8 [place] skater pigtail drain was advanced into the [...] the patient's left chest and an 8 [place] skater pigtail drain was placed in a similar fashion and connected to the atrium pleura. The patient tolerated the procedure well without evidence of immediate competition. Impression: Te chnically successful and uncomplicated placement of bilateral pigtail chest tubes under ultrasound guidance. Signed: Nato Dang MDReport Verified Date/Time: 03/21/2019 19:48:47 Reading Location: [place] [address] Angio Body Reading Room US drainage chest with tube [id number] 19:48:00 Interface, External Ris In - 03/21/2019 7:50 PM CSTFINAL REPORT Ultrasound guided insertion of bilateral pigtail chest tube catheters. History: Bilateral loculated pleural effusions. Modality: Ultrasound Sedation: None Anesthesia: Two percent Lidocaine without epinephrine. Approach: Bilateral mid axillary line Estimated blood loss: < 5 cc. Specimen: Left bedside. twisting machine operator: Nato Dang MD. Carton Folder: None. Technique: Informed written consent was obtained. [...] right pleural effusion. The right axillary line wasmarked, prepped with correcting, draped in the usual sterile fashion. After local anesthesia was achieved with lidocaine small skin incision was made along the right midaxillary line at a low intercostal space. Under direct ultrasound guidance an 8 [place] skater pigtail drain was advanced into the right pleural effusion under direct ultrasound guidance. Once the drain was within the pleural space thecatheter was advanced off the trocar and the pigtail was formed within the pleural fluid. The catheter was secured to the patient's skin with 2-0 silk and connected to a atrium pleura vac. Attention was then turned to the patient's left chest and an 8 [place]oran skater pigtail drain was placed in a similar fashion and connected to the atrium pleura. The patient tolerated the procedure well without evidence of immediate competition. Impression: Technically successful and uncomplicated placementof bilateral pigtail chest tubes under ultrasound guidance. Signed: Rissa Dang MDReport Verified Date/Time: 03/21/2019 19:48:47 Reading Location: [facility] P[facility] Body Reading [facility] 2019-03-21 12:39:00 Test Item Value Reference Range Interpretation Comments Human Metapneumovirus Not detected Not detected, (test code = 90781-9) Equivocal Rhinovirus (test code = Not detected Not detected, 57911-3) Equivocal INFLUENZA A (NO Not detected Not detected, SUBTYPE) (test code = Equivocal 51998-9) Influenza A subtype H1 (test code = 95467-6) Influenza A Subtype H3 (test code = 09006-8) Influenza A Subtype H1-2009 (test code = 20016-1) Influenza B (test code Not detected Not detected, = 23780-8) Equivocal Respiratory Syncytial Not detected Not detected, Virus (test code = Equivocal 16321-5) Parainfluenza Virus 1 Not detected Not detected, (test code = 52229-2) Equivocal Parainfluenza Virus 2 Not detected Not detected, (test code = 56875-2) Equivocal Parainfluenza virus 3 Not detected Not detected, (test code = 00161-6) Equivocal Parainfluenza Virus 4 Not detected Not detected, (test code = 36147-2) Equivocal Adenovirus (test code = Not detected Not detected, 57158-5) Equivocal Coronavirus 229E (test Not detected Not detected, code = 10083-9) Equivocal Coronavirus HKU1 (test Not detected Not detected, code = 70556-6) Equivocal Coronavirus NL63 (test Not detected Not detected, code = 33728-6) Equivocal Coronavirus OC43 (test Not detected Not detected, code = 58600-3) Equivocal Bordetella Pertussis Not detected Not detected, (test code = 45288-4) Equivocal Chlamydophila Not detected Not detected, Pneumoniae (test code = Equivocal 18842-2) Mycoplasma Pneumoniae Not detected Not detected, (test code = 13052-5) Equivocal DORI (test code = DOIR) Other viruses and bacteria not targeted by this PCR panel cannot be excluded; therefore clinical correlation and follow up of serology, culture results, and other molecular studies is required. The results are not intended to be used as the sole means for clinical diagnosis or patient management decisions. This sample was tested at the [facility] Molecular Diagnostics Laboratory using the Powermat TechnologiesArray Respiratory Panel. It is FDA cleared and has been verified and approved by the [facility] for clinical use on nasopharyngeal swab specimens. The performance of the FilmArray RP has not been established in individuals who received influenza vaccine. Recent administration of a nasal influenza vaccine may cause false positive results for Influenza A and/orInfluenza B. [facility] [id number] 12:39:00 Test Item Value Reference Range Interpretation [...] decisions. This sample was tested at the [facility] using the Pow[employer]at TechnologiesArray Respiratory Panel. It is FDA cleared and has been verified and approved by the [facility] for clinical use on nasopharyngeal swab specimens.The performance of the FilmArrayRP has not been established in individuals who received influenza vaccine. Recent administration ofa nasal influenza vaccine may cause false positive results for Influenza A and/orInfluenza B.Vitamin B12 and [id number] 10:20:00 Test Item Value Reference Range Interpretation Comments Vitamin B12 (test code = >2000 213-816 H 2132-9) Folate (test code = 17.3 ng/mL >=7.0 2284-8) DORI (test code = DORI) Senior It Security Analyst ID Sultana Loomis Lab Interpretation (test Abnormal code = 84991-9) [facility] HospitalVITAMIN B12 AND [id number] 10:20:00 Test Item Value Reference Range Interpretation Comments VITAMIN B12 (BEAKER) (test code = > pg/mL 213-816 H 774) FOLATE (BEAKER) (test code = 362) 17.3 ng/mL >=7.0 Senior It Security Analyst ID - ELISSA [id number] 10:16:00 Test Item Value Reference Range Interpretation Comments Ferritin (test code = 1076 ng/mL 5-275 H 2276-4) DORI (test code = DORI) Senior It Security Analyst ID - ELISSA Loomis Lab Interpretation (test Abnormal code = 92119-8) [facility] HospitalFERRITIN2020-01-24 10:16:00 Test Item Value Reference Range Interpretation Comments FERRITIN (BEAKER) (test code = 1076 ng/mL 5-275 H 361) Senior It Security Analyst ID - ELISSA MLactate dehydrogenase (LDH)2019-03-21 09:41:00 Test Item Value Reference Range Interpretation Comments LDH (test code = 2532-0) 300 U/L 125-220 H DORI (test code = DORI) Senior It Security Analyst ID Sultana Loomis Lab Interpretation (test Abnormal code = 76653-8) [facility] HospitalMAGNESIUM2020-01-24 09:41:00 Test Item Value Reference Range Interpretation Comments MAGNESIUM (BEAKER) (test code = 2.0 mg/dL 1.6-2.6 627) Senior It Security Analyst ID - ELISSA MBASIC METABOLIC [id number] 09:41:00 Test Item Value Reference Range Interpretation [...] S NOT APPLICABLE FOR DIALYSIS PATIEN TS. Senior It Security Analyst ID - ELISSA MSpecimen slightly ictericLACTATE DEHYDROGENASE (LDH) 2019-03-21 09:41:00 Test Item Value Reference Range Interpretation Comments LACTATE DEHYDROGENASE (BEAKER) (test 300 U/L 125-220 H code = 635) Senior It Security Analyst ANGELI Weinberg ELISSAThanh Newby, TIBC, % sat. (without ferritin)2019-03-21 09:39:00 Test Item Value Reference Range Interpretation Comments Iron (test code = 2498-4) 39.0 ug/dL 40-160 L TIBC (test code = 2500-7) 113 ug/dL 250-450 L Iron % Saturation (test 35 % 20-55 code = 2502-3) DORI (test code = DORI) Senior It Security Analyst ID Sultana BOWERS Vladislav Lab Interpretation (test Abnormal code = 00923-2) [facility] HospitalIRON, TIBC, % SAT. (WITHOUT FERRITIN)2019-03-21 09:39:00 Test Item Value Reference Range Interpretation Comments IRON (BEAKER) (test code = 547) 39.0 ug/dL 40.0-160.0 L TOTAL IRON BINDING CAPACITY 113 ug/dL 250-450 L (BEAKER) (test code = 769) IRON % SATURATION (2) (BEAKER) 35 % 20-55 (test code = 2590) Senior It Security Analyst ID - ELISSA Thuan Influenza A&B [id number] 09:34:00 Test Item Value Reference Range Interpretation Comments Rapid Influenza A Antigen Negative Negative, Inconclusive (test code = 33853-6) Rapid influenza B Antigen Negative Negative, Inconclusive (test code = 50073-3) Lab Interpretation (test code Normal = 02215-2) [facility] HospitalRANATALIO INFLUENZA A&B [id number] 09:34:00 Test Item Value Reference Range Interpretation Comments RAPID INFLUENZA A AG (BEAKER) Negative Negative, Inconclusive (test code = 1622) RAPID INFLUENZA B AG (BEAKER) Negative Negative, Inconclusive (test code = 1623) Reticulocyte [id number] 09:20:00 Test Item Value Reference Range Interpretation Comments % Retic (test code = 1.9 % 0.5-1.8 H 59366-0) DORI (test code = DORI) Senior It Security Analyst ID - [id number] Lab Interpretation (test Abnormal code = 83362-1) [facility]ICULOCYTE [id number] 09:20:00 Test Item Value Reference Range Interpretation Comments RETICULOCYTE COUNT PCT (BEAKER) (test 1.9 % 0.5-1.8 H code = 575) Senior It Security Analyst ID - [id number] W/PLT COUNT & AUTO [id number] 08:50:00 Test Item Value Reference Range Interpretation [...] CONCENTRATION Adequate (CELLAVISION)(BEAKER) (test code = 3438) Senior It Security Analyst ID - Mariela OverholtUser comments: Slide comments:POCT-GLUCOSE METER 2019-03-21 05:45:00 Test Item Value Reference Range Interpretation Comments POC-GLUCOSE METER 89 mg/dL 70-110 : TESTED A T [facility] 6720 (BEAKER) (test code = ILDA Cal[facility] 1538) 34466: Senior It Security Analyst/Techni aaron ID = [id number] for EDISON CALDWELL U/S, ABDOMINAL, [id number] 05:36:00Abdomen limited area? Add comment if clarification [...] Luque MD Report Verified Date/Time: 03/21/2019 05:36:04 [id number] 03:16:00 Test Item Value Reference Range Interpretation Comments MAGNESIUM (BEAKER) 2.1 mg/dL 1.6-2.6 Specimen slightly (test code = 627) hemolyzed Senior It Security Analyst ID - ELISSA [id number] 03:16:00 Test Item Value Reference Range Interpretation Comments PHOSPHORUS (BEAKER) 4.4 mg/dL 2.3-4.7 Specimen slightly (test code = 604) hemolyzed Senior It Security Analyst ID - ELISSA [id number] 02:32:00 Test Item Value Reference Range Interpretation Comments MAGNESIUM (BEAKER) 2.1 mg/dL 1.6-2.6 Specimen slightly (test code = 627) hemolyzed Senior It Security Analyst ID - ALEM BBASIC METABOLIC [id number] 01:30:00 Test Item Value Reference Range Interpretation [...] S NOT APPLICABLE FOR DIALYSIS PATIEN TS. Senior It Security Analyst ID - ALEM BSpecimen slightly ictericPOCT-GLUCOSE [id number] 23:58:00 Test Item Value Reference Range Interpretation Comments POC-GLUCOSE METER 114 mg/dL 70-110 H : TESTED A T [facility] 6720 (BEAKER) (test code = [facility], 1538) 34193: Senior It Security Analyst/Techni aaron ID = [id number] for PRASHANTH RINASATISHN [id number] 20:21:00 Test Item Value Reference Range Interpretation Comments MAGNESIUM (BEAKER) (test code = 2.1 mg/dL 1.6-2.6 627) Senior It Security Analyst ID - ALEM BPOCT-GLUCOSE [id number] 18:23:00 Test Item Value Reference Range Interpretation Comments POC-GLUCOSE METER 98 mg/dL 70-110 : TESTED A T [facility] 6720 (BEAKER) (test code = [facility], 1538) 13534: Senior It Security Analyst/Techni aaron ID = [id number] for SAND ERS, ISABELA BASIC METABOLIC [id number] 17:43:00 Test Item Value Reference Range Interpretation [...] S NOT APPLICABLE FOR DIALYSIS PATIEN TS. Senior It Security Analyst ID - AAHAMIDSpecimen slightly ictericBLOOD GAS, [id number] 16:45:00 Test Item Value Reference Range Interpretation [...] (BEAKER) (test code = 1819) 30.0 % 2D Echo W/Doppler(CW/PW/Color)2019-03-20 15:29:10Ejection FractionSLEH ECHO HEARTLAB MKCKESSON CPACSInterface, External Ris In - 03/20/2019 3:29 PM C STTransthoracic Echocardiography Report (TTE) Demographics Patient Name JOHN DELUNA Date of Study 03/20/2019 Gender Male Visit Number [id number] Race Unknown Room Number 7102 Number Date of 1955 Referring Physician Age 63 year(s) Drupal Programmer Gabrielle Uzma [facility] Interpreting Ziyad Bentley MD Physician Procedure Type of Study TTE procedure:2DECHO W DOPPLER( CW/PW/COLOR) (STAT) Indications:Sustained or non sustained Afib, SVT or VT.Clinical HistoryAFIB;COPD;HTN;BYPASS 1970;MV VALVULOPLASTY;AVR(TISSUE)Height: 69 inches Weight: 92.08 kg (203 lbs) BSA: 2.08 m^2 BMI: 29.98 kg/m^2HR: 110 bpm BP: 118/78 mmHg Summary The [...] 1.7cm2. Preserved stroke volume. There is mild aortic regurgitation. Mild mitral [...] is normal (male - LVIDd 4.2-5.8cm) . Mild septal hypertrophy. Septal motion is abnormal, likely related to prior cardiac surgery . All of the other LV segments contract normally . Global LV systolic function normal . Estimated LVEF by qualitative assessment is normal (>60%) . Degree of diastolic dysfunction (LAP assessment) is inconclusive due to annular calcification . Left Atrium LA size is moderately enlarged (42-48 ml/m2) . Right Ventricle Normal RV size and function. Right Atrium RA cavity size is enlarged but severity assessmentis unreliable . Aortic Valve Rfwr-oj-flixpfyj AoV cusp calcification. Mild aortic stenosis. AoV area at rest by continuity equation is in the range of 1.7cm2. Preserved stroke volume. There is mild aortic regurgitation. Mitral Valve Mild MV leaflet thickening. Severe mitral annular and subvalvular calcification. Mild mitral regurgitation. 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 MV area by continuity is in the range of 2.0 cm2 Tricuspid Valve TV is not well visualized. Unable to estimate peak systolic PA pressure; inadequate TR velocity signal. Pulmonic Valve Normal PV structure and function. Pericardium No significant pericardial effusion is visualized. IVC/SVC/PA/PV/Pleural The estimated RA [...] m/s Peak Gradient: 18.16 mmHg Mean Gradient: 9.51mmHg AV Area (continuity): 1.66 cm^2 AV VTI: 39.87 cm AV DVI: 0.56 LVOT Peak Velocity: 1.26 m/s Peak Gradient: 6.31 mmHg Mean Velocity: 0.82 m/s Mean Gradient: 3.29 mmHg LVOTDiameter: 1.94 cm LVOT VTI: 22.39 cm LVOT Area: 2.96 cm^2 LVOT SV:66.15 ml LVOT CO: 7.28 l/min LVOT CI: 3.5 l/min/m^2[facility] HospitalCT, CHEST, WITHOUT [id number] 14:58:00FINAL REPORT CT of the Chest dated [...] and bibasilar compressive atelectasis. Signed: Tomasa Foss MDReport Verified Date/Time: 03/20/2019 14:58:27 Reading Location: [facility] [place] C[facility] CT Body Reading Room VANCOMYCIN LEVEL, TROUGH 2019-03-20 13:36:00 Test Item Value Reference Range Interpretation Comments VANCOMYCIN TROUGH (BEAKER) (test 24.0 ug/mL 10.0-20.0 H code = 522) Senior It Security Analyst ID - BSPOCT-GLUCOSE [id number] 12:46:00 Test Item Value Reference Range Interpretation Comments POC-GLUCOSE METER 87 mg/dL 70-110 : TESTED A T [facility] 6720 (BEAKER) (test code = IL[place], 1538) 627[address]: Senior It Security Analyst/Techni aaron ID = [id number] for ISABELA LE Hemoglobin [id number] 09:33:00 Test Item Value Reference Range Interpretation Comments Hemoglobin A1C (test code = 4548-4) 6.2 % 4.3-6.1 H Lab Interpretation (test code = Abnormal 96764-3) [facility] HospitalHEMOGLOBIN [id number] 09:33:00 Test Item Value Reference Range Interpretation Comments HEMOGLOBIN A1C (BEAKER) (test code = 6.2 % 4.3-6.1 H 368) Osmolality, [id number] 07:32:00 Test Item Value Reference Range Interpretation Comments Osmolality, Ur (test code = 2695-5) 540 40-1,400 mOsm/kg Lab Interpretation (test code = Normal 03065-4) [facility] HospitalOSMOLALITY, [id number] 07:32:00 Test Item Value Reference Range Interpretation Comments OSMOLALITY URINE (BEAKER) (test 540 mOsm/kg 40-1,400 code = 614) ABORH, [id number] 06:44:00 Test Item Value Reference Range Interpretation Comments ABO Grouping (test code = 2588) A Rh Factor (test code = 2589) NEG [facility] HospitalTROPONIN [id number] 06:34:00 Test Item Value Reference Range Interpretation [...] failure, acidosis, acute neurological disease, and persistent tachyarrhythmia.Senior It Security Analyst ID - SANDRA WLACTIC ACID, VENOUS 2019-03-20 06:14:00 Test Item Value Reference Range Interpretation Comments LACTATE BLOOD VENOUS (2) (BEAKER) 2.0 mmol/L 0.5-2.2 (test code = 2872) Senior It Security Analyst ID - SANDRA Christiansen slightly ictericPOCT-GLUCOSE [id number] 05:56:00 Test Item Value Reference Range Interpretation Comments POC-GLUCOSE METER 86 mg/dL 70-110 : TESTED A T [facility] 6720 (BEAKER) (test code = IL[place], 1538) [address]: Senior It Security Analyst/Techni aaron ID = [id number] for CHARLEEN OLIVER CBC W/PLT COUNT & AUTO [id number] 05:35:00 Test Item Value Reference Range Interpretation [...] code = 2801) URINALYSIS W/ REFLEX URINE [id number] 04:38:00 Test Item Value Reference Range Interpretation [...] = 516) SOURCE(BEAKER) (test code = 2795) Senior It Security Analyst ID - [auto]Senior It Security Analyst ID - techRAD, CHEST, 1 VIEW, NON [id number] 04:29:00Reason for exam:->pneumonia, COPD exac, CHF exacShould [...] Goldstein Verified Date/Time: 03/20/2019 04:29:54 BLOOD GAS, [id number] 04:12:00 Test Item Value Reference Range Interpretation [...] (BEAKER) (test code = 1819) 30.0 % TSH/Free T4 If [id number] 04:07:00 Test Item Value Reference Range Interpretation Comments TSH (test code = 33191-7) 3.06 0.35- 4.94 uIU/mL DORI (test code = DORI) Senior It Security Analyst ID - BS Lab Interpretation (test Normal code = 30547-6) [facility] HospitalTSH/FREE T4 IF [id number] 04:07:00 Test Item Value Reference Range Interpretation Comments THYROID STIMULATING HORMONE 3.06 uIU/mL 0.35-4.94 (BEAKER) (test code = 772) Senior It Security Analyst ID - BSTROPONIN [id number] 03:57:00 Test Item Value Reference Range Interpretation [...] failure, acidosis, acute neurological disease, and persistent tachyarrhythmia.Senior It Security Analyst ID - SANDRA WB-TYPE NATRIURETIC FACTOR (BNP)2019-03-20 03:53:00 Test Item Value Reference Range Interpretation Comments B-TYPE NATRIURETIC PEPTIDE (BEAKER) 907 pg/mL 0-100 H (test code = 700) Senior It Security Analyst ID - BSLipid [id number] 03:52:00 Test Item Value Reference Range Interpretation Comments Triglycerides (test 60 mg/dL Specimen code = 2571-8) slightly hemolyzed Cholesterol (test 55 mg/dL Specimen code = 2093-3) slightly hemolyzed HDL (test code = 15 mg/dL 5-9) LDL Calculated (test 28 mg/dL code = 95784-8) DORI (test code = Triglyceride DORI) Reference Range: Low Risk <150 Borderline 150-199 High Risk 200-499 Very High Risk >=500 Cholesterol Reference Range: Low Risk <200 Borderline 200-239 High Risk >240 HDL Cholesterol Reference Range: Low Risk >=60 High Risk <40 LDL Cholesterol Reference Range: Optimal <100 Near Optimal 100-129 Borderline 130-159 High 160-189 Very High >=190 Senior It Security Analyst ID - SANDRA WSpecimen slightly icteric [facility] HospitalBASI METABOLIC [id number] 03:52:00 Test Item Value Reference Range Interpretation [...] S NOT APPLICABLE FOR DIALYSIS PATIEN TS. Senior It Security Analyst ID - SANDRA SEWELLpecimecely slightly ictericHEPATIC FUNCTION [id number] 03:52:00 Test Item Value Reference Range Interpretation [...] Specimen slightly (test code = 347) hemolyzed Senior It Security Analyst ID - SANDRA Christiansen slightly ictericLIPID [id number] 03:52:00 Test Item Value Reference Range Interpretation [...] Borderline 130-159 High 160-189 Very High >=190 Senior It Security Analyst ID - SANDRAWSpecimen slightly ictericVANCOMYCIN LEVEL, RANDOM 2019-03-20 03:51:00 Test Item Value Reference Range Interpretation Comments VANCOMYCIN RANDOM (BEAKER) (test 52.3 ug/mL code = 523) Reference Range: No NormalsOperator ID Sultana FLORES [id number] 03:49:00 Test Item Value Reference Range Interpretation Comments MAGNESIUM (BEAKER) 2.1 mg/dL 1.6-2.6 Specimen slightly (test code = 627) hemolyzed Senior It Security Analyst ID Sultana FLORES [id number] 03:49:00 Test Item Value Reference Range Interpretation Comments PHOSPHORUS (BEAKER) 3.0 mg/dL 2.3-4.7 Specimen slightly (test code = 604) hemolyzed Senior It Security Analyst ID - SANDRA [id number] 03:36:00 Test Item Value Reference Range Interpretation Comments FIBRINOGEN LEVEL (BEAKER) (test 492 mg/dl 225-434 H code = 658) [id number] 03:36:00 Test Item Value Reference Range Interpretation [...] is2.5-3.5 for patients wiht mechanical heart valves.PROTHROMBIN TIME/[id number] 03:35:00 Test Item Value Reference Range Interpretation [...] INR is2.5-3.5 for patients wiht mechanical heart valves.Chloride, random [id number] 03:33:00 Test Item Value Reference Range Interpretation Comments ChlorideUr (test <20 meq/L code = 56883-8) DORI (test code = Reference Range: No DORI) NormalsOperator ID - BS [facility] HospitalODIUM, RANDOM [id number] 03:33:00 Test Item Value Reference Range Interpretation Comments SODIUM URINE (BEAKER) (test code = < meq/L 243) Reference Range: No NormalsOperator ID - BSCHLORIDE, RANDOM [id number] 03:33:00 Test Item Value Reference Range Interpretation Comments CHLORIDE URINE (BEAKER) (test code = < meq/L 682) Reference Range: No NormalsOperator ID - BSProtein, random [id number] 03:32:00 Test Item Value Reference Range Interpretation Comments Protein, Urine (test code = 72 mg/dL 0-14 H 2888-6) DORI (test code = DORI) Senior It Security Analyst ID - BS Lab Interpretation (test Abnormal code = 57284-2) [facility] HospitalCREATININE, RANDOM [id number] 03:32:00 Test Item Value Reference Range Interpretation Comments CREATININE URINE (BEAKER) (test 120.7 mg/dL code = 375) Reference Range: No NormalsOperator ID - BSPROTEIN, RANDOM [id number] 03:32:00 Test Item Value Reference Range Interpretation Comments PROTEIN, URINE (BEAKER) (test code = 72 mg/dL 0-14 H 1569) Senior It Security Analyst ID - BSUREA NITROGEN, RANDOM [id number] 03:32:00 Test Item Value Reference Range Interpretation Comments UREA NITROGEN URINE (BEAKER) (test 915 mg/dL code = 538) Reference Range: No NormalsOperator ID - BSStrep pneumoniae [id number] 03:31:00 Test Item Value Reference Range Interpretation Comments Strep pneumoniae Presumptive negative Presumptive Antigen (test code = [place] [address]-2) pneumonia - see pneumococcal comment pneumonia - see comment, Presumptive negative for pneumococcal meningitis DORI (test code = DORI) Presumptive negative for pneumococcal pneumonia, suggesting no current or recent pneumococcal infection. Infection due to S. pneumoniae cannot be ruled out since the antigen present in the sample may be below the detection limit of the test. Lab Interpretation Normal (test code = 41930-2) [facility] HospitalTREP PNEUMONIAE [id number] 03:31:00 Test Item Value Reference Range Interpretation [...] be below the detection limit of the test.Legionella antigen, [id number] 03:30:00 Test Item Value Reference Range Interpretation Comments Legionella Urine Negative - see Negative for L. Antigen (test code comment pneumophi la = 39868-7) serogroup 1 ant igen, suggesting no r ecent or current infe ction with this serog roup. Legionellosis c annot be ruled out si nce other serogroup s and species may cau se disease. [facility] HospitalLEGIONELLA ANTIGEN, [id number] 03:30:00 Test Item Value Reference Range Interpretation Comments L. PNEUMOPHILA Negative - see Negative fo r L. SEROGP 1 UR AG comment pneumophila (BEAKER) (test code serogrou p 1 antigen, = 1156) suggesting no r ecent or current infe ction with this serog roup. Legionellosis c annot be ruled out si nce other serogroup s and species may cau se disease. POCT-GLUCOSE [id number] 00:50:00 Test Item Value Reference Range Interpretation Comments POC-GLUCOSE METER 87 mg/dL 70-110 : TESTED A T [facility] 6720 (BEAKER) (test code = DOROTAJAVI [place], 1538) [address]: Senior It Security Analyst/Techni aaron ID = [id number] for CHARLEEN OLIVER [id number] 09:16:00 Test Item Value Reference Range Interpretation Comments MAGNESIUM (BEAKER) (test code = 1.7 mg/dL 1.6-2.6 627) [id number] 09:16:00 Test Item Value Reference Range Interpretation Comments PHOSPHORUS (BEAKER) (test code = 4.2 mg/dL 2.3-4.7 604) BASIC METABOLIC [id number] 05:44:00 Test Item Value Reference Range Interpretation [...] PATIEN TS. CBC W/PLT COUNT & AUTO [id number] 05:29:00 Test Item Value Reference Range Interpretation [...] PERCENT (BEAKER) (test code = 2801) TROPONIN [id number] 22:36:00 Test Item Value Reference Range Interpretation [...] acidosis, acute neurological disease, and persistent tachyarrhythmia.TROPONIN [id number] 16:36:00 Test Item Value Reference Range Interpretation [...] neurological disease, and persistent tachyarrhythmia.TSH/FREE T4 IF [id number] 10:58:00 Test Item Value Reference Range Interpretation Comments THYROID STIMULATING HORMONE 1.16 uIU/mL 0.35-4.94 (MACYAKER) (test code = 772) TROPONIN [id number] 10:44:00 Test Item Value Reference Range Interpretation [...] Reference Range Interpretation Comments B-TYPE NATRIURETIC PEPTIDE (MACYAKER) 597 pg/mL 0-100 H (test code = 700) Transthoracic 2D echo w/ doppler (cw/pw/color)2019-01-23 10:36:33Ejection FractionSLE ECHO HEARTLAB MKCKESSON CPACSInterface, External Ris In - 01/23/2019 10:36 AM CSTTransthoracic Echocardiography Report (TTE) Demographics Patient Name JOHN DELUNA Date of Study 01/22/2019 Gender Male Visit Number [id number] Race Unknown Room Number 2238 Number Date of 1955 Referring BRITTON HAMILTON Physician Age 63 year(s) Drupal Programmer Johnny Eller NB, RDCS,RVT,RDMS Head Of Sales Aliya Yee Interpreting Lyn Mike MD [place] Physician Procedure Type of Study TTE procedure:2DECHO W DOPPLER(CW/PW/COLOR) Indications:Suspected cardiac source of emboli.Clinical HistoryA-FIB,COPD,HTN,CABG GRAFT (1969)Height: 69 inches Weight: 85.73 kg (189 lbs) BSA: 2.02 m^2 BMI: 27.91 kg/m^2HR: 74 bpm BP: 135/67 mmHg Summary 1. Normal LV size and function. Estimated LVEF is normal (>60%) . 2. Normal RV size and function. 3. Mild aortic stenosis. AoV area at rest by continuity equation is in the range of 1.82 cm2. 4. Mild mitral regurgitation. Ygjh-pv-euqezxhd mitral stenosis secondary to MAC. 5. Aortic root size (Sinus of Valsalva diameter) is mildly dilated 3.6 cm. Proximal ascending aorta size moderately dilated . 4.2 cm Previous Study No prior exam available for comparison. Signature Findings Rhythm/BP Atrial fibrillation with rapid ventricular response. Left Ventricle The left ventricle is chamber size (by PSLAX dimension) is normal (male - LVIDd 4.2-5.8cm) . Mild concentric LV hypertrophy. Septal motion is abnormal, likely related to prior cardiac surgery . All of the other LV segments contract normally . Global LV systolic function normal . Estimated LVEF by qualitative assessment is normal (>60%) . Degree of diastolic dysfunction (LAP assessment)is inconclusive due to annular calcification . Left Atrium LA size is severely enlarged (>48 ml/m2) . Right Ventricle Normal RV size and function. Right Atrium RA cavity size is enlarged but severity assessment is unreliable . Aortic Valve Lxio-gh-aztwbfey AoV cusp calcification. Mild aortic stenosis. AoV area at rest by continuity equation is in the range of 1.82 cm2. Preserved stroke volume. Mitral Valve Mild MV leaflet thickening. Severe mitral annular and subvalvular calcification. Mild mitral regurgitation. Uimv-om-hxitugfc mitral stenosis secondary to MAC. MV area by planimetry is in the range of 1.49 cm2 MV area by continuity is 1.5 cm2 Tricuspid Valve TV is not well visualized. Pulmonic Valve Normal PV structure and function. Aorta Aortic root size(Sinus of Valsalva diameter) is mildly dilated 3.6 cm. Proximal ascending aorta size moderately dilated . 4.2 cm Pericardium No significant pericardial effusion is visualized. IVC/SVC/PA/PV/Pleural The inferior vena cava size is increased . The estimated [...] Mean Gradient: 2.09 mmHg LVOT Diameter: 2.05 cm LVOT VTI: 20.02 cm LVOT Area: 3.3 cm^2 LVOT SV:66.05 ml LVOT CO: 4.89 l/min LVOT CI: 2.42 l/min/m^2[facility] HospitalMAGNESIUM2019-11-28 10:05:00 Test Item Value Reference Range Interpretation Comments MAGNESIUM (BEAKER) (test code = 1.7 mg/dL 1.6-2.6 627) MR, MRA, BRAIN, WITHOUT [id number] 08:26:00FINAL REPORT MRV Head CLINICAL HISTORY:Stroke, follow upconcern for transverse sinus thrombosis, need MRV please TECHNIQUE: MRV of the head utilizing 2-D axtd-dj-qlfuqs technique. COMPARISON: CTA 01/22/2019 FINDINGS: There is an irregular filling defect within the medial aspect of the left transverse sinus, corresponding with the abnormality seen on yesterday's CTA. The other major dural venous sinuses in the brain are patent. IMPRESSION: Filling defect within the medial aspect of the left transverse sinus remains concerning for venous thrombosis. Signed: Delaney Rajan MDRepthree rivers healthcare Verified Date/Time: 01/23/2019 08:26:36 MRA head without IV [id number] 08:26:00Interface, External Ris In - 01/23/2019 8:29 AM CSTFINAL REPORT MRV Head CLIN ICAL HISTORY:Stroke, follow upconcern for transverse sinus thrombosis, need MRV please TECHNIQUE: MRV of the head utilizing 2-D mvvo-zc-kqnupa technique. COMPARISON: CTA 01/22/2019 FINDINGS: There is an irregular filling defect within the medial aspect of the left transverse sinus, corresponding with the abnormality seen on yesterday's CTA. The other major dural venous sinuses in the brain are patent. IMPRESSION: Filling defect within the medial aspect of the left transverse sinus remains concerningfor venous thrombosis. Signed: Delaney Rajan Verified Date/Time: 01/23/2019 08:26:36 [facility]BA[facility] METABOLIC [id number] 05:55:00 Test Item Value Reference Range Interpretation [...] PATIEN TS. CBC W/PLT COUNT & AUTO [id number] 05:34:00 Test Item Value Reference Range Interpretation [...] 0-1 PERCENT (BEAKER) (test code = 2801) [id number] 20:49:00 Test Item Value Reference Range Interpretation Comments POTASSIUM (BEAKER) (test code = 2.8 meq/L 3.5-5.1 L 379) MR, BRAIN, WITHOUT [id number] 19:25:00Reason for exam:->Ischemic Stroke EvaluationFINAL REPORT MR, [...] Dr.ALOK RICH on 01/22/2019 7:14 PM. Signed: Delaney Rajan Verified Date/Time: 01/22/2019 19:25:11 MR brain without IV [id number] 19:25:00Interface, External Ris In - 01/22/2019 7:28 PM CSTFINAL REPORT MR, BRAIN, WITHOUT CONTRAST INDICATION: Stroke, follow upIschemic Stroke Evaluation TECHNIQUE: Multiplanar, multisequence MR imaging of the brain without intravenous contrast. COMPARISON: Same day CTA head and neckFINDINGS: Intracranial: There are multifocal areas of restricted diffusion within the left frontal,temporal, and parietal lobes. Scattered foci of T2 prolongation within the periventricular and subcortical white matter are a nonspecific finding commonly attributed to chronic small vessel ischemic disease. No intracranial hemorrhage. Generalized cerebral atrophy with ex vacuo dilatation of the ventricular system proportionate to sulci. No mass effect. No hydrocephalus. Visualized intracranial flowvoids are of normal course and caliber. Sinuses: Mild mucosal thickening in the paranasal sinuses. Small right mastoid effusion. Orbits: Globes are intact. Calvarium \\T\\ scalp: Unremarkable. IMPRESSION:Multifocal acute infarcts within the left frontal, temporal, and parietal lobes.No acute intracranial hemorrhage. These findings were discussed with Dr. JOSUE RICH on 01/22/2019 7:14 PM. Signed: Delaney Rajan Verified Date/Time: 01/22/2019 19:25:11 [facility]CT[facility] [id number] 19:16:00FINAL REPORT CLINICAL HISTORY: Neuro deficit, acute, [...] JOSUE RICH on 01/22/2019 7:14 PM. Signed: Delaney Rajan MDRsaint francis [facility] Verified Date/Time: 01/22/2019 19:16:06 CT, CAROTID, [id number] 19:16:00FINAL REPORT CLINICAL HISTORY: Neuro deficit, acute, [...] JOSUE RICH on 01/22/2019 7:14 PM. Signed: Delaney Rajan MDReport Verified Date/Time: 01/22/2019 19:16:06 CTA [id number] 19:16:00Interface, External Ris In - 01/22/2019 7:18 PM CSTFINAL REPORT CLINICAL HISTORY: Neuro deficit, acute, stroke suspected TECHNIQUE: Initially, noncontrast head CT images were performed. Contiguous contrast-enhanced axial images through the neck followed by axial images through the head with coronal and sagittal reformations to assess the arterial circulation. 3-D reconstruction s were performed using a volume rendered technique [...] infarct or hemorrhage. There is no hydrocephalus ormidline shift. Scattered foci of hypoattenuation within the [...] diameter. Great vessel origins: No occlusion or high-grade stenosis. Carotid arteries: Atherosclerosis at the right carotid bifurcation resulting in approximately 95% focal stenosis of the rightICA. Less than 50% focal stenosis of the [...] JOSUE RICH on 01/22/2019 7:14 PM. Signed: Delaney Rajan MDReport Verified Date/Time: 01/22/2019 19:16:06 [facility] CTA [id number] 19:16:00Interface, External Ris In - 01/24/2019 2:56 PM CSTFINAL REPORT CLINICAL HISTORY: Neuro deficit, acute, stroke suspected TECHNIQUE: Initially, noncontrast head CT images were per formed. Contiguous contrast-enhanced axial images through the neck [...] infarct or hemorrhage. There is no hydrocephalus ormidline shift. Scattered foci of hypoattenuation within the [...] diameter. Great vessel origins: No occlusion or high-grade stenosis. Carotid arteries: Atheros clerosis at the right carotid bifurcation resulting in approximately 95% focal stenosis of the rightICA. Less than 50% focal stenosis of the [...] JOSUE RICH on 01/22/2019 7:14 PM. Signed: Meservy, Delaney MDReport Verified Date/Time: 01/22/2019 19:16:06 [facility] Test Item Value Reference Range Interpretation Comments RPR (test code = 63295-0) Nonreactive Nonreactive Lab Interpretation (test code = Normal 00648-8) [facility] Test Item Value Reference Range Interpretation Comments RPR SCREEN (BEAKER) (test code = Nonreactive Nonreactive 420) [id number] 08:23:00 Test Item Value Reference Range Interpretation Comments MAGNESIUM (BEAKER) (test code = 1.7 mg/dL 1.6-2.6 627) FastingHEMOGLOBIN [id number] 08:10:00 Test Item Value Reference Range Interpretation Comments HEMOGLOBIN A1C (BEAKER) (test code = 5.7 % 4.3-6.1 368) FastingLIPID [id number] 05:15:00 Test Item Value Reference Range Interpretation [...] 130-159 High 160-189 Very High >=190 FastingTROPONIN [id number] 05:11:00 Test Item Value Reference Range Interpretation [...] neurological disease, and persistent tachyarrhythmia.FastingVITAMIN B12 AND [id number] 04:01:00 Test Item Value Reference Range Interpretation Comments VITAMIN B12 (BEAKER) (test code = 1973 pg/mL 213-816 H 774) FOLATE (BEAKER) (test code = 362) 18.5 ng/mL >=7.0 TSH/FREE T4 IF [id number] 03:48:00 Test Item Value Reference Range Interpretation Comments THYROID STIMULATING HORMONE 1.38 uIU/mL 0.35-4.94 (BEAKER) (test code = 772) TROPONIN [id number] 00:15:00 Test Item Value Reference Range Interpretation [...] acute neurological disease, and persistent tachyarrhythmia.BASIC METABOLIC [id number] 00:11:00 Test Item Value Reference Range Interpretation [...] FOR DIALYSIS PATIEN TS. Specimen slightly ictericPROTHROMBIN TIME/[id number] 23:48:00 Test Item Value Reference Range Interpretation [...] mechanical heart valves.RAD, CHEST, 1 VIEW, NON [id number] 23:46:00Reason for exam:->strokeShould this be performed at the bedside?->YesFINAL REPORT INDICATION: stroke TECHNIQUE: Chest radiograph, single view, portable technique. FINDINGS / IMPRESSION: Patient is status post median sternotomy.Heart shadow is enlarged and there is a small right pleural effusion.No overt pulmonary edema, discrete pneumonia, or pneumothorax is demonstrated.Osseous structures unremarkable. Signed: Jesus Grant MDReport VerifiedDate/Time: 01/21/2019 23:46:27 Reading Location: [address] Consult Reading Room CBC W/PLT COUNT & AUTO [id number] 23:39:00 Test Item Value Reference Range Interpretation [...]
--- OUTSIDE RECORDS SUMMARY | 2019-08-21 19:26 | XMS REPORT | Summary of Care ---
:1955 Author Organization [facility] - [facility] Address [address] [place] [id number] Care Team Providers Name Role Phone Dominic Sanchez Unavailable Kinjal Edmond MD Primary Care Provider Reason for Visit Reason Comments Follow-up COPD Fall balance issues Encounter Details Date Type Department Care Team Description 08/07/2019 Office Visit [facility] Kinjal Edmond Difficulty walking (Primary Dx); Pediatric and Adult MD Thanh Dysphagia, unspecified type; Primary Care- [address] [place] [address] R Congestive heart failure, unspecified HF chronicity, unspecified heart failure type; [place], [place] Chronic obstructive pulmonar y disease, unspecified COPD type; [address] [place] [phone] Frequent falls; Drive, [address] Imbalance; [place], [place] [phone] Multiple skin t ears; [phone] (Fax) Status post CVA; [phone] Late effects of CVA (cerebrovascular accident); Gastrointestina l tube in situ; Tobacco use; History of alco holism; Atrial fibrilla tion with RVR; Insomnia, unspe cified type Allergies No Known Allergiesdocumented as of this encounter (statuses as of 08/07/2019) Medications Medication Sig Dispensed Refills Start Date End Date Status vitamin B-12 Take 1,000 0 Active (VITAMIN B-12) mcg by mouth 1,000 mcg tablet daily. apixaban (ELIQUIS) Take 1 60 tablet 5 11/12/2018 Active 5 mg tablet by tabletIndications: mouth 2 Chronic atrial (two) times fibrillation daily. FUROSEMIDE 40 mg TAKE 1 180 tablet 1 05/26/2019 A ctive tabletIndications: TABLET BY Medication refill MOUTH EVERY MORNING AND 1 TABLET EVERY EVENING amiodarone 200 mg TAKE 1 0 07/29/2019 A ctive tablet TABLET PER G TUBE TWICE A DAY aspirin 81 mg TAKE 1 0 07/29/2019 Activ e chewable tablet TABLET PER G TUBE EVERY DAY atorvastatin 40 mg TAKE 1 0 07/29/2019 Active tablet TABLET PER G TUBE AT BEDTIME buPROPion SR 100 TAKE 1 0 07/29/2019 Ac tive mg SR tablet TABLET PER G TUBE EVERY DAY ferrous sulfate Take 325 mg 0 07/29/2019 A ctive 325 mg (65 mg by mouth 2 iron) tablet (two) times daily. melatonin 3 mg TAKE 2 0 06/20/2019 Acti ve tablet TABLETS BY MOUTH AT BEDTIME midodrine 5 mg TAKE 1 0 07/29/2019 Acti ve tablet TABLET PER G TUBE 3 TIMES A DAY traZODone 50 mg Take 0.5-1 30 tablet 2 08/07/2019 Ac tive tabletIndications: tablets by Insomnia, mouth at unspecified type bedtime. metOLazone 5 mg 1 tablet PO 10 tablet 5 11/12/2018 D iscontinued tabletIndications: TWICE WEEKLY 0 (Discontinued by Medication refill ON AND another SUN clinician) magnesium oxide Take 1 30 tablet 5 11/12/2018 Dis continued 400 mg (241.3 mg tablet by 0 (Di scontinued by magnesium) mouth daily. anothe r tabletIndications: c linician) Medication refill KCL 20 mEq Take 1 30 tablet 5 11/12/2018 Disconti nued tabletIndications: tablet by 0 ( Discontinued by Medication refill mouth daily. another clinician) FOLIC ACID 1 mg TAKE ONE 30 tablet 5 12/06/2018 Dis continued tabletIndications: TABLET BY 0 ( Discontinued by Folate deficiency MOUTH DAILY another clinician) FLUTICASONE SPRAY 2 16 g 0 12/24/2018 Discont inued PROPIONATE 50 SPRAYS INTO 0 (Dis continued by mcg/actuation EACH NOSTRIL ano ther nasal EVERY DAY clinician) sprayIndications: Medication refill gabapentin 300 mg TAKE ONE 90 capsule 1 12/24/2018 Discontinued capsuleIndications CAPSULE BY 0 (Discontinued by : Medication MOUTH THREE anoth er refill TIMES A DAY clinicia n) diltiazem 120 mg Take 1 90 capsule 1 01/15/2019 D iscontinued 24 hr capsule by 0 (Disconti nued by capsuleIndications mouth daily. another : Essential clinicia n) hypertension metoprolol Take 1 180 tablet 0 02/21/2019 Discont inued succinate XL 100 tablet by 0 (Di scontinued by mg 24 hr mouth 2 another tabletIndications: (two) times clinician) Medication refill daily. documented as of this encounter (statuses as of 08/07/2019) Active Problems Problem Noted Date Low TSH [...] as of this encounter (statuses as of 08/07/2019) Social History Tobacco Use Types Packs/Day Years [...] Sign Reading Time Taken Comments Blood Pressure 149/77 08/07/2019 2:01 PM CDT Pulse 115 08/07/2019 2:01 PM CDT Temperature 37.2 C (99 F) 08/07/2019 2:01 PM CDT Respiratory Rate - - Oxygen Saturation 97% 08/07/2019 2:01 PM CDT Inhaled Oxygen Concentration - - Weight 66.7 kg (147 lb) 08/07/2019 2:01 PM CDT Height - - Body Mass Index 21.71 11/12/2018 8:45 AM CDT documented in this encounter Patient Instructions Patient InstructionsKinjal Edmond MD - 08/07/2019 1:45 PM CDT Patient Education Coronavirus Disease 2019 (COVID-19): Prevention The best prevention is to not have contact with the SARS-CoV-2 virus. There is no vaccine yet. Canceling travel and other outings Stay informed about COVID-19 in your area. Follow local instructions about being in public. Be awareof events in your community that may be postponed or canceled, such as school and sporting events. You may be advised not to attend public gatherings. You will be advised to stay at least 6 feet from others as much as possible. This is called "social distancing." You may be advised to stay at home and isolate yourself as much as possible if COVID-19 is in your area. You may hear terms such as "self isolate, "quarantine," stay at home, care home in place, and lockdown. The CDC advises that people should not travel to areas where there are COVID-19 outbreaks right now for any reason that is not urgent. For the most current CDC travel advisories, visit the CDC website at www.cdc.gov/coronavirus/2019- ncov/travelers.Dont go on cruises or do non-essential travel right now. When you are at home Wash your hands often. Use soap and clean, running water for at least 20 seconds. If you don't have access to soap and water, use an alcohol-based hand research project coordinator often. Make sure it has at least 60% alcohol. Don't touch your eyes, nose, or mouth unless you have clean hands. Dont kiss someone who is sick. If you need to cough or sneeze, do it into a tissue. Then throw the tissue into the trash. If youdon't have tissues, cough or sneeze into the bend of your elbow. When possible, don't touch "high-touch" shared surfaces such as doorknobs and handles, cabinet handles, and light switches. Clean frequently-touched home surfaces often with disinfectant. This includes desk surfaces, printers, phones, kitchen counters, tables, fridge door handle, bathroom surfaces, and any soiled surface. Closely follow disinfectant label instructions. Go to the CDCs detailed cleaning website at www.c dc.gov/coronavirus/2019-ncov/prepare/cleaning-disinfection.html. Check your home supplies. Consider keeping a 2-week supply of medicines, food, and other needed household items. Make a plan for childcare, work, and ways to stay in touch with others. Know who will help you ifyou get sick. Don't be around people who are sick. There is no evidence right now that animals spread SARS-CoV-2. But it's always a good idea to wash your hands after touching any animals. Don't touch animals that may be sick. Dont share eating or drinking utensils with sick people. If you leave home Stay at least 6 feet away from all people. When possible, don't touch "high-touch" public surfaces such as doorknobs and handles, cabinet handles, and light switches. If you touch these surfaces, try to clean them first with a disinfecting wipe. Or touch them using a tissue or paper towel. Use an alcohol-based hand research project coordinator often. Make sure it has at least 60% alcohol. Don't touch your eyes, nose, or mouth unless you have clean hands. If you need to cough or sneeze, do it into a tissue. Then throw the tissue into the trash. If youdon't have tissues, cough or sneeze into the bend of your elbow. Avoid public gatherings. The CDC advises wearing a cloth face mask in public. During a public health emergency, medical face masks may be reserved for healthcare workers. You may need to make a cloth face mask of your own. You can do this using a bandana, T- shirt, or other cloth. The CDC has instructions on how to make a mask. If you are at a work site Stay at least 6 feet away from all people. Don't shake hands with anyone. Dont have in-person meetings. Meet over phone or video. Wash your hands often. Use soap and clean, running water for at least 20 seconds. If you don't have access to soap and water, use an alcohol-based hand research project coordinator often. Make sure it has at least 60% alcohol. Don't touch your eyes, nose, or mouth unless you have clean hands. The CDC advises wearing a cloth face mask in public. During a public health emergency, medical face masks may be reserved for healthcare workers. You may need to make a cloth face mask of your own. You can do this using a bandana, T- shirt, or other cloth. The CDC has instructions on how to make a mask. When possible, don't touch "high-touch" public surfaces such as doorknobs and handles, cabinet handles, and light switches. If you touch these surfaces, clean them first with a disinfecting wipe. Ortouch them using a tissue or paper towel. Use office kailey one person at a time. Consider not having office coffee or tea, or group foods. Dont have meals in groups. Clean work surfaces often with disinfectant. This includes desk surfaces, photocopier, printer, phones, kitchen counters, fridge door handle, bathroom surfaces, and others. Dont touch other peoples personal work tools, such as phones, keyboards, pens, and other items. Dont touch other peoples eating or drinking utensils. If you need to cough or sneeze, do it into a tissue. Then throw the tissue into the trash. If youdon't have tissues, cough or sneeze into the bend of your elbow. If you feel sick in any way, go home and stay home. If you have been exposed to a person with COVID-19 If you've been exposed within that last 14 days to someone who is suspected of having COVID-19 or has tested positive for it: Call your healthcare provider and follow all instructions. Your activities and where you go likely will be restricted for up to 2 weeks. Check your community's instructions about activity restrictions. You may be directed to stay home, or "self-isolate." Take your temperature every morning and evening for at least 14 days. This is to check for fever.Keep a record of the readings. Watch for symptoms of the virus. Call your provider if you have symptoms. Call your provider first before going to any clinic or hospital. See the CDC's symptom return checker. Stay home if you are sick for any reason. When to call your healthcare provider Call your healthcare provider if think you have COVID-19 symptoms. These can include fever, cough, and trouble breathing. They may also include body aches, sore throat, or diarrhea. Dont go to a healthcare facility before speaking to a healthcare provider. Last modified date: 06/02/2019 [email or web address] last reviewed this educational content on 05/28/201919995408-7867 [employer]. [address] [place] [id number]. All rights reserved. This information is not intended as a substitute for professional medical care. Always follow your healthcare professional's instructions. documented in this encounter Progress Notes Kinjal Edmond MD - 08/07/2019 1:45 PM CDT Cc: Chief Complaint Patient presents with Follow-up Fall balance issues HPI Tex Vergara is a 63 year old male who presents today for a fall. He also would like to f/u on hisCOPD. He has had multiple hospitalizations at outside hospitals since I last saw him and even established with another PCP (Dr. Dominic Sanchez) in [place]. Thus it was somewhat perplexing that he followed-up here today but he and his granddaughter who accompanied him indicated our office is muchcloser so they paid arrieta to be seen by me (the other PCP is in his insurance [id number] I am not). Since his last visit the patient has suffered a stroke with several late effects including unsteady gait, impaired memory, and dysphagia. He now has a G-tube but often refuses tube feedings and eats per mouth instead. This often results in him coughing and choking. He initially had therapy including speech therapy via home health after his CVA, but he says all of his home health services have stopped due to the company was out of network with his insurance. He has had several falls since his stroke with the last being 3 days ago. He fell on his right sideand sustained skin wounds to his right back, right upper shoulder area, and right arm. His granddaughter has been applying Neosporin and clean gauze daily. He denies any head injury or loss of consciousness. He has a walker and wheelchair but more often uses the walker because he doesn't want anyone to have to push him in the wheelchair. His granddaughter has been living with him to help take care of him but has not been formally deemed his provider. [facility] has to take him to medical appointments, etc. He leaves the home very rarely due to his debility. He also has had trouble sleeping since he returned home from the hospital. He has trouble falling asleep and staying asleep. Melatonin and Z-quil haven't helped his symptoms. He denies anxiety, dysphoric mood, or SI. He has quit drinking since his stroke but continues to smoke (though he has cut down to 1ppw from 2ppd). Additionally he has not established with another Counseling Services Manager since his Counseling Services Manager Dr. aGrcia retired. He also has not been established with an outpatient Operations Representative. He requests help with thesereferrals. The following is an excerpt from the discharge summary from his last hospitalization at [facility] in May 2019: " [facility] Hospitalist Group Team 8 Discharge Summary Answering service # [phone] PATIENT NAME: Tex Vergara : 1955 AGE: 63 y.o. DATE OF ADMISSION: 05/30/2019 DATE OF DISCHARGE: 06/09/2019 DISCHARGE DIAGNOSES: Acute metabolic encephalopathy Acute on chronic diastolic HF Metabolic alkalosis H/o pleural effusion s/p VATS Chronic afib Dysphagia Hypokalemia CONSULTANTS: Pulmonary PROCEDURES: None BRIEF HOSPITAL COURSE: This is a 63yo M admitted with AMS and significant metabolic alkalosis. Suspect patient's lab abnormalities and menta status were due to inaccurate medication administration as his daughter was very confused about what meds he was supposed to be taking. Once electrolytes were corrected and pt was placed on the proper meds his mental status improved. Once accepted to inpatient rehab he was discharged DISCHARGE EXAM BP 134/89 | Pulse 90 | Temp 97.9 F (36.6 C) (Oral) | Resp 22 | Ht 1.753 m (5' 9") | Wt 71.1 kg (156 lb 12 oz) | SpO2 98% | BMI 23.15 kg/m General appearance: alert, appears stated age, cooperative and no distress Lungs: clear to auscultation bilaterally Heart: regular rate and rhythm, S1, S2 normal, no murmur, click, rub or gallop Abdomen: soft, non-tender; bowel sounds normal; no masses, no organomegaly Extremities: extremities normal, atraumatic, no cyanosis or edema Neurologic: Grossly normal DISCHARGE MEDICATIONS: Tex Vergara Home Medication Instructions KENDRA:[id number] Printed on:06/11/19 1050 Medication Information amiodarone (PACERONE) 400 MG tablet Take 1 tablet (400 mg total) by mouth daily for 90 days. apixaban (ELIQUIS) 5 mg Tab tablet Take 1 tablet (5 mg total) by mouth 2 (two) times daily for 90 days. aspirin 81 MG chewable tablet Take 1 tablet (81 mg total) by mouth daily for 90 days. atorvastatin (LIPITOR) 80 MG tablet Take 0.5 tablets (40 mg total) by mouth nightly. folic acid (FOLVITE) 1 MG tablet Take 1 mg by mouth daily. furosemide (LASIX) 40 MG tablet Take 40 mg by mouth 2 (two) times daily. lactulose (CHRONULAC) 20 gram/30 mL solution 30 mLs (20 g total) by G-tube route daily as needed (constipation). metoprolol tartrate (LOPRESSOR) 25 MG tablet Take 1 tablet (25 mg total) by mouth 2 (two) times daily for 90 days. midodrine (PROAMATINE) 5 MG tablet Take 1 tablet (5 mg total) by mouth 3 (three) times daily for 90 days. potassium chloride SA (K-DUR,KLOR-CON) 20 MEQ tablet Take 1 tablet (20 mEq total) by mouth daily. thiamine 100 MG tablet Take 1 tablet (100 mg total) by mouth daily. DISPOSITION: inpatient rehab DISCHARGE CONDITION: Fair DISCHARGE FOLLOW UP & INSTRUCTIONS: with PCP unless otherwise instructed in AVS Primary Care Physician Follow up in 2 week(s) " Allergies Tex has No Known Allergies. Medications Current Outpatient Medications: amiodarone 200 mg tablet, TAKE 1 TABLET PER G TUBE TWICE A DAY, Disp: , Rfl: aspirin 81 mg chewable tablet, TAKE 1 TABLET PER G TUBE EVERY DAY, Disp: , Rfl: atorvastatin 40 mg tablet, TAKE 1 TABLET PER G TUBE AT BEDTIME, Disp: , Rfl: buPROPion SR 100 mg SR tablet, TAKE 1 TABLET PER G TUBE EVERY DAY, Disp: , Rfl: ferrous sulfate 325 mg (65 mg iron) tablet, Take 325 mg by mouth 2 (two) times daily., Disp: , Rfl: melatonin 3 mg tablet, TAKE 2 TABLETS BY MOUTH AT BEDTIME, Disp: , Rfl: midodrine 5 mg tablet, TAKE 1 TABLET PER G TUBE 3 TIMES A DAY, Disp: , Rfl: traZODone 50 mg tablet, Take 0.5-1 tablets by mouth at bedtime., Disp: 30 tablet, Rfl: 2 FUROSEMIDE 40 mg tablet, TAKE 1 TABLET BY MOUTH EVERY MORNING AND 1 TABLET EVERY EVENING, Disp:180 tablet, Rfl: 1 apixaban (ELIQUIS) 5 mg tablet, Take 1 tablet by mouth 2 (two) times daily., Disp: 60 tablet, Rfl: 5 vitamin B-12 (VITAMIN B-12) 1,000 mcg tablet, Take 1,000 mcg by mouth daily., Disp: , Rfl: Histories Past Medical History: Diagnosis Date Abnormal LFTs Arthritis Atrial fibrillation with RVR 06/11/2017 B12 deficiency Bilateral renal cysts 10/07/2016 Cholelithiasis 06/04/2018 COPD (chronic obstructive pulmonary disease) 07/19/2017 Fatty liver 06/04/2018 Folic acid deficiency Heart disease 04/12/2016 History of staph infection affected his spine Hypertension Hypokalemia Insomnia due to medical condition chronic pain Nephrolithiasis 06/04/2018 Pleural effusion on right 06/04/2018 Past Surgical History: Procedure Laterality Date LA ANESTH,OPEN HEART SURGERY+PUMP TONSILLECTOMY Social History Socioeconomic History Marital status: Spouse name: Not on file Number of children: Not on file Years of education: Not on file Highest education level: Not on file Occupational History Not on file Social Needs Financial resource strain: Not on file Food insecurity: Worry: Not on file Inability: Not on file Transportation needs: Medical: Not on file Non-medical: Not on file Tobacco Use Smoking status: Current Every Day Smoker Packs/day: 1.50 Years: 30.00 Pack years: 45.00 Smokeless tobacco: Never Used Substance and Sexual Activity Alcohol use: Yes Alcohol/week: 7.0 standard drinks Types: 7 Cans of beer per week Drug use: No Sexual activity: Not on file Lifestyle Physical activity: Days per week: Not on file Minutes per session: Not on file Stress: Not on file Relationships Social connections: Talks on phone: Not on file Gets together: Not on file Attends uatsdin service: Not on file Active member of club or organization: Not on file Attends meetings of clubs or organizations: Not on file Relationship status: Not on file Intimate partner violence: Fear of current or ex partner: Not on file Emotionally abused: Not on file Physically abused: Not on file Forced sexual activity: Not on file Other Topics Concern Not on file Social History Narrative 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 He lives with his and [id number]. Family History Problem Relation Age of Onset Stroke Mother Cancer Father lung Musculoskeletal Father Other - see comments Sister lupus Diabetes Brother Hypertension Brother Arthritis Sister Review of Systems Constitutional: Negative. HENT: Negative. Eyes: Negative. Respiratory: Positive for cough and shortness of breath. Cardiovascular: Negative. Gastrointestinal: Negative. Genitourinary: Negative. Musculoskeletal: Positive for gait problem. Skin: Negative. Psychiatric/Behavioral: Positive for sleep disturbance. Endocrine: Endocrine negative Vital Signs BP (!) 149/77 | Pulse 115 | Temp 37.2 C (99 F) (Tympanic) | Wt 147 lb (66.7 kg) | SpO2 97% | BMI 21.71 kg/m Physical Exam Constitutional: He is oriented to person, place, and time. He appears well- developed and well-nourished. No distress. HENT: Head: Normocephalic. Mouth/Throat: Mucous membranes are normal. Eyes: Conjunctivae are normal. No scleral icterus. Neck: Neck supple. No thyromegaly present. Cardiovascular: Regular rhythm and intact distal pulses. Tachycardia present. Exam reveals no gallopand no friction rub. Murmur (III/, ruben) heard. Pulmonary/Chest: Effort normal and breath sounds normal. He has no wheezes. He has no rales. Abdominal: Soft. Bowel sounds are normal. He exhibits no distension and no mass. There is no tenderness. Musculoskeletal: He exhibits no edema. Lymphadenopathy: He has no cervical adenopathy. Neurological: He is alert and oriented to person, place, and time. He displays tremor. Gait abnormal. Skin: Skin is warm and dry. Ecchymosis noted. No rash noted. No pallor. Skin tears to the right lower back, right arm, and right shoulder area w/o signs of infection Psychiatric: He has a normal mood and affect. His behavior is normal. Cognition and memory are impaired. Nursing note and vitals reviewed. LABS: CBC CMP WBC (10*3/L) Date Value 05/13/2018 8.08 NA (mmol/L) Date Value 11/12/2018 144 RBC (10*6/L) Date Value 05/13/2018 5.85 (H) K (mmol/L) Date Value 11/12/2018 3.8 PLT (10*3/L) Date Value 05/13/2018 263 CALCIUM (mg/dL) Date Value 11/12/2018 9.3 HGB (g/dL) Date Value 05/13/2018 14.5 CL (mmol/L) Date Value 11/12/2018 100 HCT (%) Date Value 05/13/2018 44.6 BUN (mg/dL) Date Value 11/12/2018 12 LIPID PANEL CREATININE (mg/dL) Date Value 11/12/2018 0.86 CHOL (mg/dL) Date Value 11/12/2018 119 (L) GLUCOSE (mg/dL) Date Value 11/12/2018 95 LDL CHOL (mg/dL) Date Value 11/12/2018 68 CO2 TOTAL (mmol/L) Date Value 11/12/2018 32 (H) HDL (mg/dL) Date Value 11/12/2018 40 (L) ALBUMIN Date Value Ref Range Status 11/12/2018 3.6 3.5 - 5.0 g/dL Final TRIG (mg/dL) Date Value 11/12/2018 54 T PROTEIN Date Value Ref Range Status 11/12/2018 7.2 6.3 - 8.2 g/dL Final TSH TOTAL BILI Date Value Ref Range Status 11/12/2018 1.4 (H) 0.1 - 1.1 mg/dL Final TSH (mIU/L) Date Value 11/12/2018 0.20 (L) No components found for: BILIUNCOM No results found for: BILICONJ ALT(SGPT) Date Value Ref Range Status 11/12/2018 24 9 - 51 U/L Final AST(SGOT) Date Value Ref Range Status 11/12/2018 35 13 - 40 U/L Final ALK PHOS Date Value Ref Range Status 11/12/2018 145 (H) 34 - 122 U/L Final Assessment/Plan Diagnoses and all orders for this visit: Difficulty walking, Frequent falls, Imbalance, Status post CVA, Late effects of CVA (cerebrovascularaccident) Recommended that the patient avoid using his walker for now and he should be wheelchair-dependent until his PT and OT can be restarted. He also will need dietary aide teacher/provider services for assistance with his ADLs, transportation, etc. I explained that I can't order home health our outpatient therapy services for him given I am not his PCP. I encouraged him to f/u with his PCP CHRISSIE to discuss his needs. Dysphagia, unspecified type; Gastrointestinal tube in situ I discouraged the patient from eating orally given he has been told to use the G-tube exclusively due to his dysphagia and aspiration risk. I encouraged him to request Speech therapy services once [facility] is reinstated. Congestive heart failure, unspecified HF chronicity, unspecified heart failure type; Atrial fibrillation with RVR Recommended evaluation and management by a customer support specialist CHRISSIE. He was told to contact his PCP for an insurance referral very soon. Strong ER precautions were given for SOB, persistent palpitations, dizziness, syncope, cp, etc. Chronic obstructive pulmonary disease, unspecified COPD type Recommended evaluation and management by a Pulmonology specialist. He was told to contact his PCP for an insurance referral very soon. Multiple skin tears The wounds don't appear infected at this point and are very shallow, so I don't think oral antibiotic therapy will be needed. Continue topical antibiotic. Td is UTD. Keep the wound clean and dry. Icounseled the patient/caregiver to notify me right away if any signs/sxs of infection develop. Tobacco use Patient counseled and patient prefers to quit on his own. History of alcoholism Congratulated him on his sobriety and encouraged continued abstinence from EtOH. Insomnia, unspecified type Discussed the medication treatment options for the patient's sleep disorder. We decided upon a trial of trazodone. The potential side effects of this drug were reviewed and the patient voiced understanding. The patient declined referral for a sleep study or Psychiatry consultation. We discussed healthy ways of coping with insomnia including good sleep hygiene. Thyroid function testing is UTD. Follow-up has been scheduled but the patient understands he can follow-up even sooner if his insomnia symptoms don't improve or if other mental health issues develop. - traZODone 50 mg tablet; Take 0.5-1 tablets by mouth at bedtime. Plan of care, desired health behaviors, goals, Ddx, and any prescribed medications were discussed with the patient. This visit did not involve counseling and coordination that comprised more than 50% of the visit time. Education resources and self-management tools were provided and reviewed with the AVS. Patient/guardian/family verbalized understanding and agrees to the plan of care. Barriers tocare: None. Ability to manage care: Good. Advanced care planning (living will) information was not given/offered to the patient to review for discussion at a future visit. If applicable, the [facility] database was accessed to review any controlled substance prescription claims data. If the patient is taking prescribed medications, the [employer] prescription claims data in [employer] was reviewed to assess patient compliance with the medication treatment plan. COVID-19 precautions given including frequent handwashing, social distancing, cleaning and disinfecting, indications for testing, etc. Follow-up: Return if symptoms worsen or fail to improve, see PCP soon. Follow- up sooner if any problems or concerns. Scribe Attestation Sara Rojo , am scribing for, and in the presence of, Kinjal Edmond MD who performed the services described here-in. Sara Guerrero, August 07, 2019, 1:55 PM Physician Attestation I, Kinjal Edmond MD, personally performed the services described in this documentation , as scribed by, Sara Guerrero in my presence and it is both accurate and complete. Kinjal Edmond MD August 07, 2019, 1:55 PM documented in this encounter Plan of Treatment Health Maintenance Due Date Last Done Comments PNEUMOCOCCAL 0-64 YEARS COMBINED SERIES ( - 1960 PPSV23) DTaP,Tdap,and Td Vaccines (1 - Tdap) 1965 Depression Screening 1966 COLONOSCOPY 2004 Zoster Recombinant Vaccine (SHINGRIX) (1 of 2) 2004 LUNG CANCER SCREEN: Recommended for age 55-80 with 30 04/07/2017 04/07/2016 + pack year history INFLUENZA VACCINE (Season Ended) 2019 HEPATITIS C (HCV) SCREEN Completed 03/28/2016 documented as of this encounter Goals Goal Patient Goal Associated Recent Patient-Stated? Author Type Problems Progress Quit using Tobacco Use No [place], tobacco Wondiful A, (cigarettes, MD smokeless, etc) documented as of this encounter Results Not on filedocumented in this encounter Visit Diagnoses Diagnosis Difficulty walking - Primary Difficulty in walking Dysphagia, unspecified type Congestive heart failure, unspecified HF chronicity, unspecified heart failure type Chronic obstructive pulmonary disease, u nspecified COPD type Frequent falls Personal history of fall Imbalance Abnormality of gait Multiple skin tears Open wound(s) (multiple) of unspecified site(s), without mention of complication Status post CVA Transient ischemic attack (TIA), and cer ebral infarction without residual deficits Late effects of CVA (cerebrovascular acc ident) Unspecified late effects of cerebrovascu lar disease Gastrointestinal tube in situ Tobacco use Tobacco use disorder History of alcoholism Personal history of alcoholism Atrial fibrillation with RVR Atrial fibrillation Insomnia, unspecified type documented in this encounter
--- OUTSIDE RECORDS SUMMARY | 2019-08-21 19:27 | XMS REPORT | Summary of Care ---
:1955 Author Organization [facility] - [facility] Address [address] [place] [address] Care Team Providers Name Role Phone Dominic Sanchez Unavailable Kinjal Edmond MD Primary Care Provider Reason for Visit Reason Comments Follow-up COPD Fall balance issues Encounter Details Date Type Department Care Team Description 08/07/[address] [facility] Kinjal Edmond Difficulty walking (Primary Dx); Pediatric and Adult MD Thanh Dysphagia, unspecified type; Primary Care- [address] [place] [address] R Congestive heart failure, unspecified HF chronicity, unspecified heart failure type; [place], [place] Chronic obstructive pulmonar y disease, unspecified COPD type; [address] [place] [phone] Frequent falls; Drive, [address] [place]; [place], [place] [phone] Multiple skin t ears; [phone] (Fax) Status post CVA; [phone] Late effects of CVA (cerebrovascular accident); Gastrointestina [...] of 08/07/2019) Active Problems Problem Noted Date 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 The CDC advises [...] soap and water, use an alcohol-based hand yardage tufting machine operator often. Make sure it has at least [...] or paper towel. Use an alcohol-based hand yardage tufting machine operator often. Make sure it has at least [...] bandana, T- shirt, or other cloth. The [facility] has instructions on how to make a [...] soap and water, use an alcohol-based hand yardage tufting machine operator often. Make sure it has at least [...] bandana, T- shirt, or other cloth. The [facility] has instructions on how to make a [...] clinic or hospital. See the CDC's symptom fish checker. Stay home if you are sick for any reason. When to call your healthcare provider Call your healthcare provider if think you have COVID-19 symptoms. These can include fever, cough, and trouble breathing. They may also include body aches, sore throat, or diarrhea. Dont go to a healthcare facility before speaking to a healthcare provider. Last modified date: 06/02/2019 LuisReqlut lluvia reviewed this educational content on 05/28/201919996055-4174 The [employer]. [address] [place] [address]. All rights reserved. This information is not [...] with another PCP (Dr. Dominic Sanchez) in [place]. Thus it was somewhat perplexing that he followed-up here today but he and his granddaughter who accompanied him indicated our office is muchcloser so they paid arrieta to be seen by me (the other PCP is in his insurance [id number]-[id number] I am not). Since his last visit [...] his provider. She requests disabled parking privileges forohm to help when she has to take [...] Additionally he has not established with another R&D Lab Technician since his R&D Lab Technician Dr. Garcia retired. He also has not been established with an outpatient Black Top Roller. He requests help with thesereferrals. The following is an excerpt from the discharge summary from his last hospitalization at [facility] in May 2019: " [facility] Hospitalist Group Team 8 Discharge Summary Answering service # [phone] PATIENT NAME: Tex Vergara : 1955 AGE: [...] or edema Neurologic: Grossly normal DISCHARGE MEDICATIONS: Jai Tex Home Medication Instructions KENDRA:[id number] Printed on:06/11/19 1950 Medication Information amiodarone (PACERONE) 400 MG tablet [...] 06/04/2018 Past Surgical History: Procedure Laterality Date [place] ANESTH,OPEN HEART SURGERY+PUMP TONSILLECTOMY Social History Socioeconomic [...] file Gets together: Not on file Attends yazidism service: Not on file Active member of [...] file Social History Narrative 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 He lives with his and [id number]. Family History Problem Relation Age of Onset [...] can be restarted. He also will need radio personality/provider services for assistance with his ADLs, transportation, [...] him to [facility] Congestive heart failure, unspecified HF chronicity, unspecified heart failure type; Atrial fibrillation with RVR Recommended evaluation and management by a airport operations specialist CHRISSIE. He was told to contact [...] at a future visit. If applicable, the [facility] database was accessed to review any controlled substance prescription claims data. If the patient is taking prescribed medications, the [employer] prescription claims data in [employer] was reviewed to assess patient compliance with the medication treatment plan. COVID-19 precautions given including frequent handwashing, social distancing, cleaning and disinfecting, indications for testing, etc. Follow-up: Return if symptoms worsen or fail to improve, see PCP soon. Follow- up sooner if any problems or concerns. Scribe Attestation ISara , víctor scribing for, and in the presence of, [...] year history INFLUENZA VACCINE (Season Ended) 2019 Depression Screening 08/06/2020 08/07/2019 HEPATITIS C (HCV) SCREEN Completed 03/28/2016 documented as of this encounter Goals Goal Patient Goal Associated Recent Patient-Stated? Author Type Problems Progress Quit using Tobacco Use No [place], tobacco Wondiful A, (cigarettes, MD smokeless, etc) [...]
--- OUTSIDE RECORDS SUMMARY | 2019-08-21 19:27 | XMS REPORT | Summary of Care ---
:1955 Author Organization [facility] - [facility] Address [address] [place] [address] Care Team Providers Name Role Phone Dominic Sanchez Unavailable Kinjal Edmond MD Primary Care Provider Reason for Visit Reason Comments Follow-up COPD Fall balance issues Encounter Details Date Type Department Care Team Description 08/07/2019 Office Visit [facility] Kinjal Edmond Difficulty walking (Primary Dx); Pediatric and Adult MD Thanh Dysphagia, unspecified type; Primary Care- [address] [place] [address] R Congestive heart failure, unspecified HF chronicity, unspecified heart failure type; [place], [place] Chronic obstructive pulmonar y disease, unspecified COPD type; [address] [place] [phone] Frequent falls; [address], [address] [place]; [place], [place] [phone] Multiple skin t ears; [phone] (Fax) Status post CVA; [phone] Late effects of CVA (cerebrovascular accident); Gastrointestina [...] as "self isolate, "quarantine," stay at home, mcc in place, and lockdown. The CDC advises [...] soap and water, use an alcohol-based hand cigarette examiner often. Make sure it has at least [...] or paper towel. Use an alcohol-based hand cigarette examiner often. Make sure it has at least [...] soap and water, use an alcohol-based hand cigarette examiner often. Make sure it has at least [...] clinic or hospital. See the CDC's symptom lumber checker. Stay home if you are sick for any reason. When to call your healthcare provider Call your healthcare provider if think you have COVID-19 symptoms. These can include fever, cough, and trouble breathing. They may also include body aches, sore throat, or diarrhea. Dont go to a healthcare facility before speaking to a healthcare provider. Last modified date: 06/02/2019 [employer]ainers last reviewed this educational content on 05/28/201919991001-3012 The [employer]. [address] [place] [address]. All rights reserved. This information is not [...] with another PCP (Dr. Dominic Sanchez) in [place]. Thus it was somewhat perplexing that he followed-up here today but he and his granddaughter who accompanied him indicated our office is muchcloser so they paid arrieta to be seen by me (the other PCP is in his insurance [id number] I am not). Since his last visit [...] his provider. She requests disabled [facility] [place] [facility] help when she has to take [...] Additionally he has not established with another Statistics Teacher since his Statistics Teacher Dr. Garcia retired. He also has not been established with an outpatient Public Health Program Manager. He requests help with thesereferrals. The following is an excerpt from the discharge summary from his last hospitalization at [facility] in May 2019: " [facility] Hospitalist Group Team 8 Discharge Summary Answering service # [phone] PATIENT NAME: Tex Vergara : 1955 AGE: [...] DISCHARGE MEDICATIONS: Tex Vergara Home Medication Instructions KENDRA:[id number] Printed on:06/11/19 1051 Medication Information amiodarone (PACERONE) 400 MG tablet [...] 06/04/2018 Past Surgical History: Procedure Laterality Date OR ANESTH,OPEN HEART SURGERY+PUMP TONSILLECTOMY Social History Socioeconomic [...] file Gets together: Not on file Attends bahai service: Not on file Active member of [...] file Social History Narrative 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 He lives with his and [id number]-ji-whp. Family History Problem Relation Age of Onset [...] can be restarted. He also will need household personal assistant/provider services for assistance with his ADLs, transportation, [...] him to request Speech therapy services once [facility]. Congestive heart failure, unspecified HF chronicity, unspecified heart failure type; Atrial fibrillation with RVR Recommended evaluation and management by a forestry support specialist CHRISSIE. He was told to [...] at a future visit. If applicable, the [facility] database was accessed to review any controlled substance prescription claims data. If the patient is taking prescribed medications, the [employer] prescription claims data in [employer] was reviewed to assess patient compliance with [...] Problems Progress Quit using Tobacco Use No [place], tobacco Wondiful A, (cigarettes, MD smokeless, etc) [...]
--- OUTSIDE RECORDS SUMMARY | 2019-08-21 19:28 | XMS REPORT | Summary of Care ---
:1955 Author Organization [facility] - [facility] Address [address] [place] [address] Care Team Providers Name Role Phone Dominic Sanchez Unavailable Kinjal Edmond MD Primary Care Provider Reason for Visit Reason Comments Follow-up COPD Fall balance issues Encounter Details Date Type Department Care Team Description 08/07/2019 Office Visit [facility] Kinjal Edmond Difficulty walking (Primary Dx); Pediatric and Adult MD Thanh Dysphagia, unspecified type; Primary Care- [address] [place] [address] R Congestive heart failure, unspecified HF chronicity, unspecified heart failure type; [place], [place] Chronic obstructive pulmonar y disease, unspecified COPD type; [address] [place] [phone] Frequent falls; Drive, [address] [place]; [place], [place] [phone] Multiple skin t ears; [phone] (Fax) Status post CVA; [phone] Late effects of CVA (cerebrovascular accident); Gastrointestina [...] as "self isolate, "quarantine," stay at home, group home in place, and lockdown. The CDC [...] soap and water, use an alcohol-based hand instant potato processing supervisor often. Make sure it has at least [...] or paper towel. Use an alcohol-based hand instant potato processing supervisor often. Make sure it has at least [...] bandana, T- shirt, or other cloth. The [facility] has instructions on how to [...] soap and water, use an alcohol-based hand instant potato processing supervisor often. Make sure it has at least [...] bandana, T- shirt, or other cloth. The [facility] has instructions on how to [...] clinic or hospital. See the CDC's symptom card checker. Stay home if you are sick for any reason. When to call your healthcare provider Call your healthcare provider if think you have COVID-19 symptoms. These can include fever, cough, and trouble breathing. They may also include body aches, sore throat, or diarrhea. Dont go to a healthcare facility before speaking to a healthcare provider. Last modified date: 06/02/2019 LuisNovalact lluvia reviewed this educational content on 05/28/201919992470-7617 The [employer]. [address] [place] [address]. All rights reserved. This information is not [...] with another PCP (Dr. Dominic Sanchez) in [place]. Thus it was somewhat perplexing that he followed-up here today but he and his granddaughter who accompanied him indicated our office is muchcloser so they paid arrieta to be seen by me (the other PCP is in his insurance [id number] I am not). Since his last visit [...] his provider. She requests disabled parking privileges formsm to help when she has to take [...] Additionally he has not established with another Atmospheric Technician since his Atmospheric Technician Dr. Garcia retired. He also has not been established with an outpatient Software Quality Test Engineer. He requests help with thesereferrals. The following is an excerpt from the discharge summary from his last hospitalization at [facility] in May 2019: " [facility] Hospitalist Group Team 8 Discharge Summary Answering service # [phone] PATIENT NAME: Tex Vergara : 1955 AGE: [...] DISCHARGE MEDICATIONS: Jai Tex Home Medication Instructions KENDRA:[id number] Printed on:06/11/19 9890 Medication Information amiodarone (PACERONE) 400 MG tablet [...] 06/04/2018 Past Surgical History: Procedure Laterality Date ID ANESTH,OPEN HEART SURGERY+PUMP TONSILLECTOMY Social History Socioeconomic [...] file Gets together: Not on file Attends restorationism service: Not on file Active member of [...] file Social History Narrative 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 He lives with his and [id number]-nc-vmh. Family History Problem Relation Age of Onset [...] can be restarted. He also will need retail personal banker/provider services for assistance with his ADLs, transportation, [...] him to request Speech therapy services [facility]. Congestive heart failure, unspecified HF chronicity, unspecified heart failure type; Atrial fibrillation with RVR Recommended evaluation and management by a mechanical engineering specialist CHRISSIE. He was told to contact [...] at a future visit. If applicable, the [facility] database was accessed to review any controlled substance prescription claims data. If the patient is taking prescribed medications, the [facility] prescription claims data in [employer] was reviewed to assess patient compliance with [...] Problems Progress Quit using Tobacco Use No [place], tobacco Wondiful A, (cigarettes, MD smokeless, etc) [...]
--- OUTSIDE RECORDS SUMMARY | 2019-08-21 19:28 | XMS REPORT | Summary of Care ---
:1955 Author Organization [facility] - [facility] Address [address] [place] [address] Care Team Providers Name Role Phone Dominic Sanchez Unavailable Kinjal Edmond MD Primary Care Provider Encounter Details Date Type Department Care Team Description 08/08/2019 Orders Only [facility] Doctor Unassigned, No [address] [facility] [place] [address] [address] [place] [phone] Allergies No Known Allergiesdocumented as of this encounter (statuses as of 08/20/2019) Medications Medication Sig Dispensed Refills Start Date End Date Status vitamin B-12 (VITAMIN Take 1,000 mcg by 0 Active B-12) 1,000 mcg tablet mouth daily. apixaban (ELIQUIS) 5 Take 1 tablet by 60 tablet 5 11/12/2018 Active mg tabletIndications: mouth 2 (two) Chronic atrial times daily. fibrillation FUROSEMIDE 40 mg TAKE 1 TABLET BY 180 tablet 1 05/26/2019 Active tabletIndications: MOUTH EVERY Medication refill MORNING AND 1 TABLET EVERY EVENING amiodarone 200 mg TAKE 1 TABLET PER 0 07/29/2019 Active tablet G TUBE TWICE A DAY aspirin 81 mg chewable TAKE 1 TABLET PER 0 0 Active tablet G TUBE EVERY DAY atorvastatin 40 mg TAKE 1 TABLET PER 0 07/29/2019 Active tablet G TUBE AT BEDTIME buPROPion SR 100 mg SR TAKE 1 TABLET PER 0 0 Active tablet G TUBE EVERY DAY ferrous sulfate 325 mg Take 325 mg by 0 07/29/2019 Active (65 mg iron) tablet mouth 2 (two) times daily. melatonin 3 mg tablet TAKE 2 TABLETS BY 0 06/20/2019 Active MOUTH AT BEDTIME midodrine 5 mg tablet TAKE 1 TABLET PER 0 07/29/2019 Active G TUBE 3 TIMES A DAY traZODone 50 mg Take 0.5-1 30 tablet 2 08/07/2019 Ac tive tabletIndications: tablets by mouth Insomnia, unspecified at bedtime. type documented as of this encounter (statuses as of 08/20/2019) Active Problems Problem Noted Date Gastrostomy tube [...] as of this encounter (statuses as of 08/20/2019) Social History Tobacco Use Types Packs/Day Years [...] Comments PNEUMOCOCCAL 0-64 YEARS COMBINED SERIES (1 1960 of 1 - PPSV23) DTaP,Tdap,and Td Vaccines (1 - Tdap) 1965 COLONOSCOPY 2004 Zoster Recombinant Vaccine (SHINGRIX) (1 2004 of 2) LUNG CANCER SCREEN: Recommended for age 0204/07/2017 04/07/19 17 55-80 with 30 + pack year history INFLUENZA VACCINE (Season Ended) 2019 Depression Screening 08/06/2020 08/07/2019, 08/07/2019 HEPATITIS C (HCV) SCREEN Completed 03/28/2016 documented as of this encounter Goals Goal Patient Goal Associated Recent Patient-Stated? Author Type Problems Progress Quit using Tobacco Use No [place], tobacco Wondiful A, (cigarettes, MD smokeless, etc) documented as of this encounter Procedures Procedure Name Priority Date/Time Associated Diagnosis Comme nts PHYSICIAN CERTIFICATION Routine 08/08/2019 12:01 AM STATEMENT CDT documented in this encounter Results Not on filedocumented in this encounter
--- OUTSIDE RECORDS SUMMARY | 2019-08-21 19:29 | XMS REPORT | Summary of Care ---
:1955 Author Organization [facility] Address [address] [place] [address] Care Team Providers Name Role Phone Dominic Sanchez Unavailable Kinjal Edmond MD Primary Care Provider Reason for Visit Reason Comments Refill Request Encounter Details Date Type Department Care Team Description 08/20/2019 Refill [facility] Pediatric and Kinjal Jung MD Refill Request Adult Primary Care- [address] [place] [address] [place] [address], [phone] [address] [place] [phone] Allergies No Known Allergiesdocumented as of this [...] Problems Progress Quit using Tobacco Use No [place], tobacco Wondiful A, (cigarettes, MD smokeless, etc) documented as of this encounter Results Not on filedocumented in this encounter
--- NOTE | 2019-08-21 20:05 | RAD REPORT ---
EXAM DESCRIPTION: CT - Head Brain Wo Cont - 08/21/2019 7:58 pm CLINICAL HISTORY: CONFUSED, multiple falls COMPARISON: CT May 29 TECHNIQUE: Axial 5 mm thick images of the head were obtained without IV contrast. All CT scans are performed using dose optimization technique as appropriate and may include automated exposure control or mA/KV adjustment according to patient size. FINDINGS: No intracranial hemorrhage, mass, edema or shift of mid-line structures. No acute infarcti on changes seen. No cortical edema or sulcal effacement. Scattered chronic ischemic change seen in th e cerebral white matter similar to comparison. Volume loss is minimal. Ventricles are in proportion t o volume loss. Mastoid air cells and visualized portions of the paranasal sinuses are clear. No acute bony findings. IMPRESSION: Negative non-contrast CT head examination for acute finding. Above detailed findings similar to May 2019.
[2019-08-21 20:35] LABS: Absolute Lymphocytes (CBC) 1.7 K/uL (0.7-4.9); Basophils % 0.9 % (0-1.3); Hematocrit 36.6 % (39.6-49.0); Lymphocytes % 16.7 % (15.3-44.8); MPV 9.3 fL (7.6-11.3); RBC Red Blood Cell Count 4.62 M/uL (4.33-5.43)
[2019-08-21 20:48] LABS: ALT/SGPT 28 U/L (12-78); AST/SGOT 46 U/L (15-37); Albumin 2.4 g/dL (3.4-5.0); Alkaline Phosphatase 167 U/L (45-117); BUN Blood Urea Nitrogen 29 mg/dL (7-18); Bicarbonate 40 mmol/L (21-32); Bilirubin Direct 0.7 mg/dL (0-0.2); Bilirubin Total 1.3 mg/dL (0.2-1.0); CKMB Creatine Kinase MB 1.1 ng/mL (0.3-3.6); Creatine Phosphokinase 29 U/L (39-308); Glucose Level 88 mg/dL (74-106); Lipase 44 U/L (73-393); Magnesium 2.7 mg/dL (1.8-2.4); NT PRO-BNP 2762 pg/mL (<125); Protein, Total 7.9 g/dL (6.4-8.2); Sodium Level 136 mmol/L (136-145); Troponin (Emerg Dept Use Only) < 0.02 ng/mL (0.0-0.045)
[2019-08-21 20:50] LABS: Potassium 2.3 mmol/L (3.5-5.1)
[2019-08-21 21:00] LABS: Protime INR 1.77
[2019-08-21] MEDS ORDERED: POTASSIUM 25 MEQ EFFERV TAB ONE (21:00)
--- NOTE | 2019-08-21 21:22 | RAD REPORT ---
EXAM DESCRIPTION: CT - Spine Lumbar Wo Con - 08/21/2019 9:03 pm CLINICAL HISTORY: fall;Lower back pain COMPARISON: None. TECHNIQUE: Thin section axial imaging of the lumbar spine was performed. Sagittal and coronal recon struction images were generated and reviewed. All CT scans are performed using dose optimization technique as appropriate and may include automated exposure control or mA/KV adjustment according to patient size. FINDINGS: Slight wedging of the L1 body has not changed from May. Lumbar body height and alignment otherwise unremarkable and stable. Slight narrowing of the posterior aspect L1-2 disc space also sta ble. No fracture or pathologic bone process. Endplate degenerative change seen throughout the lumbar spine . Advanced facet joint degenerative changes are present. Central canal detail is inherently limited. Multilevel disc bulge changes are present without central canal herniation. No central spinal stenosis seen. Mild disc bulge in the right exit foramen L2-3. P rominent foraminal and extraforaminal bulging disc material on the right L3-4. Right foraminal stenos is is present. Circumferential bulging of disc material L4-5 without canal or significant foramen alcon nosis. Postsurgical changes are noted from right laminectomy. IMPRESSION: No fracture or acute vertebral body finding. No disc herniation or central spinal stenosis identifiable. Prominent protruding disc material in the right foramen an extraforaminal space on the right at L3-4. Right foraminal stenosis present. Lumbar findings do not appear to be grossly different from May comparison.
--- NOTE | 2019-08-21 21:27 | RAD REPORT ---
EXAM DESCRIPTION: CT - Thoracic Spine W/o Cont - 08/21/2019 9:03 pm CLINICAL HISTORY: Back pain, multiple falls COMPARISON: CT chest May 2019 TECHNIQUE: Axial 3 mm thick images of the thoracic spine were obtained with sagittal and coronal rec onstruction images generated and reviewed. All CT scans are performed using dose optimization technique as appropriate and may include automated exposure control or mA/KV adjustment according to patient size. FINDINGS: Thoracic body height and alignment have not changed from the May study. No thoracic acut e fracture changes identifiable. No lytic, sclerotic or expansile bony destructive process seen. Cent ral canal detail is inherently limited. No central spinal stenosis. No significant degree of foramina l stenosis seen. Disc herniation is not suspected. No paraspinal mass or hematoma. Patient has a loculated pleural effusion with minimal amounts of air. Patient previously had a very l arge right-sided hydropneumothorax. The air component appears substantially reduced. Most of the pleu ral effusion is obscured from the field of view. IMPRESSION: Thoracic spine degenerative change with no acute finding. Partially imaged loculated right-sided hydropneumothorax. This appears to have substantially diminish ed in size from May. This is only partially imaged on this study.
--- NOTE | 2019-08-21 22:56 | EDPHYS ---
Physician Documentation [facility] Name: Tex Vergara Age: 63 yrs Sex: Male : 1955 Arrival Date: 08/21/2019 Time: 18:46 Bed 5 Private MD: ED Physician Benito Hooker HPI: 08/20 22:33 This 63 yrs old Male presents to ER via Wheelchair with complaints of tw4 Confused, Fall Injury, Cough. 22:33 Details of fall: The patient fell from an upright position, while walking. Onset: The tw4 symptoms/episode began/occurred 1 week(s) ago. Associated injuries: The patient sustained upper back injury, injury to the low back. Severity of symptoms: At their worst the symptoms were moderate, in the emergency department the symptoms are unchanged. Unable to obtain HPI due to altered mental status, baseline dementia. The patient has not experienced similar symptoms in the past. Historical: - Allergies: 18:54 No Known Allergies; ll1 - PMHx: 18:54 COPD; Hypertension; TIA; CHF; Atrial Fib; ll1 - PSHx: 18:54 CABG; ll1 - Immunization history:: Adult Immunizations up to date. - Social history:: Smoking status: Patient reports the use of cigarette tobacco products, smokes one pack cigarettes per day. Patient/guardian denies using alcohol, street drugs. - Immunization history: Last tetanus immunization: unknown. ROS: 22:33 Constitutional: Negative for fever, chills, and weight loss, Eyes: Negative for injury, tw4 pain, redness, and discharge, Cardiovascular: Negative for chest pain, palpitations, and edema, Respiratory: Negative for shortness of breath, cough, wheezing, and pleuritic chest pain, Abdomen/GI: Negative for abdominal pain, nausea, vomiting, diarrhea, and constipation, Back: Negative for injury and pain, MS/Extremity: Negative for injury and deformity, Skin: Negative for injury, rash, and discoloration. 22:33 Neuro: Positive for altered mental status, near syncope, weakness, Negative for dizziness, gait disturbance, headache, hearing loss, numbness, seizure activity. Exam: 22:33 Constitutional: This is a well developed, well nourished patient who is awake, alert, tw4 and in no acute distress. Head/Face: Normocephalic, atraumatic. Cardiovascular: Regular rate and rhythm with a normal S1 and S2. No gallops, murmurs, or rubs. Normal PMI, no JVD. No pulse deficits. Respiratory: Lungs have equal breath sounds bilaterally, clear to auscultation and percussion. No rales, rhonchi or wheezes noted. No increased work of breathing, no retractions or nasal flaring. Abdomen/GI: Soft, non-tender, with normal bowel sounds. No distension or tympany. No guarding or rebound. No evidence of tenderness throughout. Back: No spinal tenderness. No costovertebral tenderness. Full range of motion. MS/ Extremity: Pulses equal, no cyanosis. Neurovascular intact. Full, normal range of motion. 22:33 Neuro: Orientation: to person, place. Vital Signs: 18:51 BP 109 / 58; Pulse 97; Resp 18; Temp 98.6; Pulse Ox 100% ; Pain 0/10; ll1 21:00 BP 122 / 74; Pulse 95; Resp 18; Pulse Ox 98% on R/A; rv 22:00 BP 119 / 72; Pulse 96; Resp 21; Pulse Ox 98% ; rv 23:00 BP 117 / 70; Pulse 92; Resp 21; Pulse Ox 98% on R/A; rv 08/21 00:00 BP 117 / 66; Pulse 94; Resp 23; Pulse Ox 98% on R/A; rv 00:54 BP 105 / 60; Pulse 88; Resp 20; Temp 98.5; Pulse Ox 97% on R/A; rv [place] Coma Score: 08/20 20:08 Eye Response: spontaneous(4). Verbal Response: oriented(5). Motor Response: obeys rv commands(6). Total: 15. Trauma Score (Adult): 20:08 Eye Response: spontaneous(1); Verbal Response: oriented(1); Motor Response: obeys rv commands(2); Systolic BP: > 89 mm Hg(4); Respiratory Rate: 10 to 29 per min(4); Sienna Score: 15; Trauma Score: 12 MDM: 19:12 Patient medically screened. tw4 22:51 Data reviewed: vital signs, nurses notes, lab test result(s), cardiac enzymes, CBC, tw4 hepatic panel, EKG, radiologic studies, CT scan, plain films. Data interpreted: Pulse oximetry: Interpretation: normal. Test interpretation: by ED physician or midlevel provider: ECG, plain radiologic studies. Counseling: I had a detailed discussion with the patient and/or guardian regarding: the historical points, exam findings, and any diagnostic results supporting the discharge/admit diagnosis. Physician consultation: Ziyad Ponce regarding admission, to the telemetry unit. patient's condition, and will see patient in ED. 08/20 19:26 Order name: Blood Culture Adult (2) 08/20 19:26 Order name: BMP; Complete Time: 22:41 08/20 19:26 Order name: CBC with Diff; Complete Time: 22:41 08/20 19:26 Order name: Ckmb; Complete Time: 22:42 08/20 19:26 Order name: CPK; Complete Time: 22:41 08/20 19:26 Order name: Hepatic Function; Complete Time: 22:41 08/20 19:26 Order name: Lipase; Complete Time: 22:41 08/20 19:26 Order name: Magnesium; Complete Time: 22:41 08/20 19:26 Order name: NT PRO-BNP; Complete Time: 22:41 08/20 19:26 Order name: PT-INR; Complete Time: 22:42 08/20 19:26 Order name: Ptt, Activated; Complete Time: 22:42 08/20 19:26 Order name: Troponin (emerg Dept Use Only); Complete Time: 22:42 08/20 19:26 Order name: COVID-19 08/20 19:26 Order name: Flu; Complete Time: 22:42 08/20 19:26 Order name: EKG; Complete Time: 19:27 08/20 19:26 Order name: Cardiac monitoring; Complete Time: 20:08/20 19:26 Order name: EKG - Nurse/Tech; Complete Time: 20:08/20 19:26 Order name: IV Saline Lock; Complete Time: 20:08/20 19:26 Order name: Labs collected and sent; Complete Time: 20:08/20 19:26 Order name: O2 Per Protocol; Complete Time: 20:08/20 19:26 Order name: O2 Sat Monitoring; Complete Time: 20:10 tw 08/20 19:26 Order name: CT Head Brain wo Cont; Complete Time: 22:42 tw4 08/20 19:26 Order name: CXR XRAY 08/20 19:26 Order name: Strep; Complete Time: 22:42 tw4 08/20 20:45 Order name: CT Lumbar Spine Wo Con; Complete Time: 22:42 tw4 08/20 20:45 Order name: CT Thoracic Spine Wo Cont; Complete Time: 22:42 tw4 08/20 20:59 Order name: Throat Culture [facility] 08/20 22:29 Order name: Urine Microscopic Only [facility] 08/20 22:53 Order name: Urine Dipstick--Ancillary (enter results) pa 08/20 19:26 Order name: Document PUI#; Complete Time: 20:10 tw08/20 19:26 Order name: Droplet/Contact Precautions; Complete Time: 20:10 [facility] 08/20 19:26 Order name: Notify Health Dept [phone]/ ; Complete Time: 20:10 [facility] 08/20 22:29 Order name: Urine Dipstick-Ancillary (obtain specimen); Complete Time: 22:50 tw4 EC:33 Rate is 93 beats/min. Rhythm is irregularly irregular with Left bundle branch block. tw4 QRS [place] is Normal. NH interval is normal. QRS interval is normal. No Q waves. T waves are Normal. No ST changes noted. Clinical impression: Atrial Fibrillation. Interpreted by me. Reviewed by me. Administered Medications: 21:21 Drug: Potassium Effervescent Tablet 50 mEq Route: PO; rv 08/21 00:55 Follow up: Response: No adverse reaction rv Disposition: 08/21/19 22:55 Hospitalization ordered by Ziyad Ponce for Inpatient Admission. Preliminary diagnosis are Hypokalemia, Altered mental status, unspecified. - Bed requested for Telemetry/MedSurg (Inpatient). - Status is Inpatient Admission. rv - Condition is Stable. - Problem is new. - Symptoms have improved. Signatures: Dispatcher [employer] Mirta Carrillo RN RN Benito Hooker MD MD tw4 Bran Redding RN RN rv Roque, Raymond, RN RN rr5 Mary Becerra RN RN ll1 Corrections: (The following items were deleted from the chart) 00:08/20 22:55 Hospitalization Ordered by Ziyad Ponce for Inpatient Admission. cg Preliminary diagnosis is Hypokalemia; Altered mental status, unspecified. Bed requested for Telemetry/MedSurg (Inpatient). Status is Inpatient Admission. Condition is Stable. Problem is new. Symptoms have improved. tw4 08/21 01:18 00:42 08/21/2019 22:55 Hospitalization Ordered by Ziyad Ponce for Inpatient rv Admission. Preliminary diagnosis is Hypokalemia; Altered mental status, unspecified. Bed requested for Telemetry/MedSurg (Inpatient). Status is Inpatient Admission. Condition is Stable. Problem is new. Symptoms have improved. cg
--- NOTE | 2019-08-21 22:56 | ER ---
Nurse's Notes [facility] Name: Tex Vergara Age: 63 yrs Sex: Male : 1955 Arrival Date: 08/21/2019 Time: 18:46 Bed 5 Private MD: Diagnosis: Hypokalemia;Altered mental status, unspecified Presentation: 08/20 18:51 Chief complaint: Patient states: Daughter brought him in for confusion, multiple falls ll1 today and cough. Daughter Sherrie [phone]. Patient is very confused. Skin tears to both arms noted. Coronavirus screen: Surgical mask placed on patient. Patient moved to private room, placed in contact and droplet isolation with eye protection until further assessment. Patient reports a cough. Patient denies shortness of breath or difficulty breathing. Patient denies measured and/or subjective temperature greater than 100.4F prior to today's visit. Patient denies travel on a cruise ship or to a country the [facility] currently lists as an affected area. Patient denies contact with known and/or suspected case of COVID-19. Ebola Screen: Patient denies travel to an Ebola-affected area in the 21 days before illness onset. Initial Sepsis Screen: Does the patient meet any 2 criteria? HR > 90 bpm. Risk Assessment: Do you want to hurt yourself or someone else? Patient reports no desire to harm self or others. Onset of symptoms is unknown. 18:51 Method Of Arrival: Wheelchair ll1 18:51 Acuity: SUMMER 2 ll1 20:08 Initial Sepsis Screen: Does the patient have a suspected source of infection? Yes: rv Productive cough/pneumonia. Historical: - Allergies: 18:54 No Known Allergies; ll1 - PMHx: 18:54 COPD; Hypertension; TIA; CHF; Atrial Fib; ll1 - PSHx: 18:54 CABG; ll1 - Immunization history:: Adult Immunizations up to date. - Social history:: Smoking status: Patient reports the use of cigarette tobacco products, smokes one pack cigarettes per day. Patient/guardian denies using alcohol, street drugs. - Immunization history: Last tetanus immunization: unknown. Screenin:07 Abuse screen: Denies threats or abuse. Denies injuries from another. Nutritional rv screening: No deficits noted. Tuberculosis screening: No symptoms or risk factors identified. Fall Risk Fall in past 12 months (25 points). Secondary diagnosis (15 points) impaired mobility, IV access (20 points). Ambulatory Aid- Crutches/Cane/Walker (15 pts). Gait- Weak (10 pts.). Mental Status- Overestimates/Forgets Limitations (15 pts.). Total Jason Fall Scale indicates High Risk Score (45 or more points). Fall prevention measures have been instituted. Side Rails Up X 2 Frequent Obs/Assessments Occuring As available patient and family educated on Fall Prevention Program and Strategies. Primary Survey: 20:07 NO uncontrolled hemorrhage observed. Breathing/Chest: Respiratory pattern: regular. rv Circulation: Cardiac rhythm: atrial fibrillation. Disability Alert. Exposure/Environment: There is no evidence of uncontrolled external bleeding. No obvious injuries are noted at this time. A warming method has been applied: A warm blanket has been provided to the patient. Assessment: 20:05 General: Appears uncomfortable, Behavior is calm, cooperative. Pain: Denies pain. rv Neuro: Level of Consciousness is awake, obeys commands, confused, Oriented to person, place, situation. Cardiovascular: Patient's skin is warm and dry. Rhythm is atrial fibrillation. Respiratory: Reports cough that is Airway is patent Respiratory effort is even, unlabored, Respiratory pattern is regular, Breath sounds are clear bilaterally. Derm: Skin has skin tears on both upper extremities. 20:53 Reassessment: brook from laboratory called K 2.3, ED provider aware with order made rr5 and carried out. Vital Signs: 18:51 BP 109 / 58; Pulse 97; Resp 18; Temp 98.6; Pulse Ox 100% ; Pain 0/10; ll1 21:00 BP 122 / 74; Pulse 95; Resp 18; Pulse Ox 98% on R/A; rv 22:00 BP 119 / 72; Pulse 96; Resp 21; Pulse Ox 98% ; rv 23:00 BP 117 / 70; Pulse 92; Resp 21; Pulse Ox 98% on R/A; rv 08/21 00:00 BP 117 / 66; Pulse 94; Resp 23; Pulse Ox 98% on R/A; rv 00:54 BP 105 / 60; Pulse 88; Resp 20; Temp 98.5; Pulse Ox 97% on R/A; rv [place] Coma Score: 08/20 20:08 Eye Response: spontaneous(4). Verbal Response: oriented(5). Motor Response: obeys rv commands(6). Total: 15. Trauma Score (Adult): 20:08 Eye Response: spontaneous(1); Verbal Response: oriented(1); Motor Response: obeys rv commands(2); Systolic BP: > 89 mm Hg(4); Respiratory Rate: 10 to 29 per min(4); Sienna Score: 15; Trauma Score: 12 ED Course: 18:46 Patient arrived in ED. mr 18:53 Triage completed. ll1 18:54 Arm band placed on Patient placed in an exam room, on a stretcher. ll1 19:08 Bran Redding, RN is Primary Nurse. rv 19:12 Benito Hooker MD is Attending Physician. tw4 19:40 Inserted saline lock: 18 gauge in right antecubital area, using aseptic technique. rv 19:56 CT Head Brain wo Cont In Process Unspecified. EDMS 20:03 Initial lab(s) drawn, by me, sent to lab. First set of blood cultures drawn by me. rv Inserted saline lock: 20 gauge in left antecubital area, using aseptic technique. Blood collected. 20:03 No provider procedures requiring assistance completed. Second set of blood cultures rv drawn by me. EKG done, by ED staff, reviewed by Benito Hooker MD. 20:07 Patient has correct armband on for positive identification. Bed in low position. Call rv light in reach. Side rails up X2. monitor technician on. Pulse ox on. NIBP on. 20:08 Patient maintains SpO2 saturation greater than 95% on room air. rv 20:16 CXR XRAY In Process Unspecified. EDMS 21:03 CT Lumbar Spine Wo Con In Process Unspecified. EDMS 21:03 CT Thoracic Spine Wo Cont In Process Unspecified. EDMS 22:55 Ziyad Ponce is Hospitalizing Provider. tw4 08/21 00:54 IV is patent, with fluids infusing freely, with good blood return, Patient admitted, IV rv remains in place. Administered Medications: 08/20 21:21 Drug: Potassium Effervescent Tablet 50 mEq Route: PO; rv 08/21 00:55 Follow up: Response: No adverse reaction rv Outcome: 08/20 22:55 Decision to Hospitalize by Provider. tw4 08/21 00:52 Admitted to Tele accompanied by tech, via stretcher, room 412, Report called to rv JIMENEZ MARQUEZ Condition: good Instructed on the need for admit. 01:18 Patient left the ED. rv Signatures: Dispatcher [employer] Anna Nunez Terrence, MD MD tw4 Bran Redding RN RN Ronnie De La Cruz RN RN rr5 Mary Becerra RN RN ll1
[2019-08-21 22:59] LABS: Urine Blood NEGATIVE (NEG); Urine Glucose NEGATIVE (NEG); Urine Protein NEGATIVE (NEG); Urine pH 7.5 (5.0-7.0)
[2019-08-21 23:42] LABS: Urine Bacteria <20 /HPF (NONE SEEN); Urine Culture Reflex Order NOT NEEDED; Urine RBC <5 /HPF (NONE SEEN); Urine Urothelial Cells <5 /HPF (NONE SEEN)
--- NOTE | 2019-08-22 00:31 | P.HP ---
Patient History Date of Service: 08/22/19 Reason for admission: Falls History of Present Illness: 63-year-old gentleman with a history of chronic atrial fibrillation on chronic anticoagulation presented emergency department with a complaint of multiple falls. Patient reports multiple falls over the last few days. He denied any shortness of breath or chest pain or any symptoms preceding the falls. He denies any dizziness. Workup in the ED revealed hypokalemia. CT images of the spine shows no acute disease, head CT shows no acute disease. Patient is placed under observation for further evaluation for the multiple falls. Allergies No Known Allergies Allergy (Verified 05/15/18 11:25) Home Medications: Apixaban [Eliquis] 5 mg PO BID 03/11/19 Cyanocobalamin (Vitamin B-12) [Vitamin B-12] 500 mcg PO DAILY 03/11/19 Folic Acid 1 mg PO DAILY 03/11/19 Furosemide 40 mg PO BID 03/11/19 Gabapentin 300 mg PO TID 03/11/19 Hydrocodone Bit/Acetaminophen [Hydrocodon-Acetaminoph 7.5-325] 1 tab PO Q6HP PRN 03/11/19 Magnesium Oxide 400 mg PO DAILY 03/11/19 Metoprolol Tartrate 100 mg PO BID 03/11/19 Multivitamin [Multivitamins] 1 cap PO DAILY 03/11/19 Potassium Chloride [K-Dur] 40 meq PO DAILY 03/11/19 dilTIAZem HCL [Diltiazem HCl] 120 mg PO DAILY 03/11/19 metOLazone [Metolazone] 5 mg PO SEECOM 03/11/19 - Past Medical/Surgical History Diabetic: No -: Hypertension -: Chronic back pain -: CHF -: Atrial Fibrillation -: Mild Stroke -: Back surgery -: CABG - Family History Mother -: Heart disease Notes: Multiple strokes - Social History Alcohol use: Yes CD- Drugs: No Caffeine use: Yes Review of Systems Other: Except as documented, all other systems reviewed and negative. Physical Examination - Physical Exam General: Alert, In no apparent distress HEENT: Normocephalic, Mucous membr. moist/pink, EOMI, Sclerae nonicteric Neck: Supple, JVD not distended Respiratory: Clear to auscultation bilaterally, Normal air movement Cardiovascular: No edema, Regular rate/rhythm, Normal S1 S2 Capillary refill: <2 Seconds Gastrointestinal: Normal bowel sounds, Soft and benign, Non-distended, No tenderness Musculoskeletal: No swelling, No erythema Integumentary: No rashes Neurological: Normal speech, Normal strength at 5/5 x4 extr - Studies Laboratory Data (last 24 hrs) 08/21/19 19:40: PT 20.7 H, INR 1.77, APTT 33.4 08/21/19 19:40: WBC 10.3, Hgb 11.7 L, Hct 36.6 L, Plt Count 268 08/21/19 19:40: Sodium 136, Potassium 2.3 L*, BUN 29 H, Creatinine 1.10, Glucose 88, Magnesium 2.7 H, Total Bilirubin 1.3 H, AST 46 H, ALT 28, Alkaline Phosphatase 167 H, Lipase 44 L Microbiology Data (last 24 hrs): 08/21/19 19:45 Throat Group A Streptococcus Rapid Screen - Final 08/21/19 19:45 Nasopharnyx Influenza Type A Antigen Screen - Final 08/21/19 19:45 Nasopharnyx Influenza Type B Antigen Screen - Final Assessment and Plan - Problems (Diagnosis) (1) Chronic atrial fibrillation Current Visit: Yes Status: Acute (2) Repeated falls Current Visit: Yes Status: Acute (3) Chronic anticoagulation Current Visit: Yes Status: Acute (4) Hypokalemia Current Visit: Yes Status: Acute (5) HTN (hypertension) Onset Date: 06/12/17 Current Visit: No Status: Acute Qualifiers: (6) Pleural effusion Current Visit: No Status: Acute - Plan Admit to the medical floor. Correct hypokalemia with IV and oral potassium supplementation. Trend troponin. Syncope workup with echo. PT and OT High risk for life-threatening bleed from the falls given he is on chronic anticoagulation. May probably need rehab placement. - Advance Directives Does patient have a Living Will: No Does patient have a Durable POA for Healthcare: No
[2019-08-22] MEDS ORDERED: NA CHLORIDE 0.9% 1,000 ML IV SCH (01:00)
[2019-08-22] MEDS ORDERED: POTASSIUM CL 40 MEQ in NA CHLORIDE 0.9% 500 ML IV SCH (01:00)
[2019-08-22 02:36] VITALS: BMI 22.4
[2019-08-22] MEDS: KCL 20 MEQ/100 mL IVPB 20 MEQ/100 ML BAG IV SCH ×5 (02:39→16:48)
--- NOTE | 2019-08-22 06:49 | EKG ---
Test Date: 2019-08-21 Test Time: 19:50:01 Associate Team Physician: RV MEASUREMENT RESULTS: Intervals: Rate: 93 NH: QRSD: 162 QT: 482 QTc: 599 [place]: P: NH: QRS: 13 T: 128 INTERPRETIVE STATEMENTS: Atrial fibrillation Left bundle branch block Abnormal ECG Compared to ECG 05/30/2019 13:27:23 Left bundle-branch block now present Left ventricular hypertrophy no longer present T-wave abnormality no longer present Electronically Signed On 08-22-19 06:47:57 CDT by Gabriel Monsalve
--- NOTE | 2019-08-22 07:09 | RAD REPORT ---
EXAM DESCRIPTION: RAD - Chest Single View - 08/21/2019 8:16 pm CLINICAL HISTORY: DYSPNEA COMPARISON: CT thoracic spine same date, portable chest May 2019, CT chest May 2019 TECHNIQUE: AP portable chest image was obtained 08/21/2019 8:16 pm . FINDINGS: Lung volumes are low. No acute left lung field finding. Prior imaging showed a large hydro pneumothorax on the right. This has significantly reduced in size. Minimal air component remains. Thi s is primarily a loculated fluid collection at the right base. Upper right lung field is clear of acu te disease. Heart size is upper normal. Pulmonary vasculature within normal limits. No measurable pneumothorax is seen. No acute bony abnormality seen. Aortic calcifications are present. Dilated ascending aorta is again noted. No gross change from comparison. IMPRESSION: Heart, vasculature and lung markings are less prominent than the prior study. No peripheral infectious consolidation seen. A mild component of failure or volume overload cannot be excluded. Previously detailed large right-sided hydropneumothorax has substantially reduced in size with little air component present. As clinical findings warrant, follow-up CT chest could be performed for further evaluation of the serena g parenchyma and loculated fluid collection.
[2019-08-22] MEDS: NA CHLORIDE 0.9% 1,000 ML IV SCH ×3 (09:52→23:40)
[2019-08-22 10:18] LABS: Urine Appearance CLEAR; Urine Bilirubin NEGATIVE (NEG); Urine Blood NEGATIVE (NEG); Urine Color YELLOW; Urine Glucose NEGATIVE (NEG); Urine Protein NEGATIVE (NEG)
[2019-08-22 10:20] LABS: Urine Microscopic Reflex NO UMIC
[2019-08-22] MEDS: APIXABAN 5 MG TABLET FT SCH ×2 (10:28→21:41)
[2019-08-22] MEDS: AMIODARONE HCL 200 MG TAB FT SCH ×2 (10:28→21:41)
[2019-08-22] MEDS: JEVITY 1.5 CAL LIQUID 1,000 ML BOT FT SCH ×4 (10:31→21:43)
[2019-08-22] MEDS: MIDODRINE HCL 5 MG TABLET FT SCH ×2 (14:06→21:40)
[2019-08-22] MEDS ORDERED: APIXABAN 5 MG TABLET PO SCH (21:00)
[2019-08-22] MEDS ORDERED: AMIODARONE HCL 200 MG TAB FT SCH (21:00)
[2019-08-22] MEDS: MELATONIN 5 MG TABLET PO SCH (21:40)
[2019-08-22] MEDS: ATORVASTATIN 40 MG TAB FT SCH (21:41)
[2019-08-22] MEDS ORDERED: POTASSIUM 25 MEQ EFFERV TAB PO ONE (22:38)
[2019-08-23 06:23] LABS: Absolute Lymphocytes (CBC) 1.4 K/uL (0.7-4.9); Basophils % 0.8 % (0-1.3); Hematocrit 36.7 % (39.6-49.0); Lymphocytes % 14.6 % (15.3-44.8); MPV 9.3 fL (7.6-11.3); RBC Red Blood Cell Count 4.66 M/uL (4.33-5.43)
[2019-08-23 06:28] LABS: BUN Blood Urea Nitrogen 18 mg/dL (7-18); Bicarbonate 37 mmol/L (21-32); Glucose Level 90 mg/dL (74-106); Magnesium 2.6 mg/dL (1.8-2.4); Phosphorus 2.5 mg/dL (2.5-4.9); Potassium 3.4 mmol/L (3.5-5.1); Sodium Level 139 mmol/L (136-145)
[2019-08-23] MEDS ORDERED: POTASSIUM CL SA 10 MEQ TAB PO ONE (08:17)
[2019-08-23] MEDS ORDERED: POTASSIUM 25 MEQ EFFERV TAB PO ONE ×2 (09:12→16:28)
[2019-08-23] MEDS: JEVITY 1.5 CAL LIQUID 1,000 ML BOT FT SCH ×5 (09:16→20:03)
[2019-08-23] MEDS: ASPIRIN 81 MG CHEWABLE TABLET FT SCH (09:18)
[2019-08-23] MEDS: MIDODRINE HCL 5 MG TABLET FT SCH ×3 (09:18→20:01)
[2019-08-23] MEDS: APIXABAN 5 MG TABLET FT SCH ×2 (09:18→20:01)
[2019-08-23] MEDS: AMIODARONE HCL 200 MG TAB FT SCH ×2 (09:18→20:01)
[2019-08-23] MEDS: NA CHLORIDE 0.9% 1,000 ML IV SCH (11:51)
--- NOTE | 2019-08-23 15:33 | P.PN ---
Subjective Date of Service: 08/23/19 Chief Complaint: Falls Subjective: No new changes (yet to work with PT) Physical Examination - Vital Signs Temperature: 97.5 F Blood Pressure: 112/57 Pulse: 104 Respirations: 18 Pulse Ox (%): 95 - Physical Exam General: Alert, In no apparent distress HEENT: Atraumatic, Normocephalic Neck: Supple, 2+ carotid pulse no bruit, JVD not distended Respiratory: Clear to auscultation bilaterally, Normal air movement Cardiovascular: No edema, Normal pulses, Regular rate/rhythm, Normal S1 S2 Gastrointestinal: Normal bowel sounds, Soft and benign, Non-distended Musculoskeletal: No clubbing, No swelling - Studies Microbiology Data (last 24 hrs): 08/21/19 19:45 Nasopharnyx Coronavirus COVID-19 PCR - Final Assessment & Plan - Problems (Diagnosis) (1) Chronic atrial fibrillation Current Visit: Yes Status: Acute (2) Hypokalemia Current Visit: Yes Status: Acute (3) Repeated falls Current Visit: Yes Status: Acute (4) HTN (hypertension) Onset Date: 06/12/17 Current Visit: No Status: Acute Qualifiers: (5) New onset atrial fibrillation Onset Date: 06/12/17 Current Visit: No Status: Acute Physician Review: Patient Assessed, Agree with Above Assessment and Plan Physician Review Additional Text: - improving potassium - will start kcl daily - follow PT eval , may need SNF since recurrent falls -c/w peg tube feeding
[2019-08-23] MEDS: NS KCL 20MEQ 20 MEQ/1,000 ML BAG IV SCH (17:35)
[2019-08-23] MEDS: MELATONIN 5 MG TABLET PO SCH (20:01)
[2019-08-23] MEDS: ATORVASTATIN 40 MG TAB FT SCH (20:01)
[2019-08-24 05:45] LABS: BUN Blood Urea Nitrogen 16 mg/dL (7-18); Bicarbonate 36 mmol/L (21-32); Glucose Level 90 mg/dL (74-106); Phosphorus 2.9 mg/dL (2.5-4.9); Potassium 3.7 mmol/L (3.5-5.1); Sodium Level 142 mmol/L (136-145)
[2019-08-24] MEDS: ASPIRIN 81 MG CHEWABLE TABLET FT SCH (08:27)
[2019-08-24] MEDS: AMIODARONE HCL 200 MG TAB FT SCH (08:27)
[2019-08-24] MEDS: APIXABAN 5 MG TABLET FT SCH (08:27)
[2019-08-24] MEDS: MIDODRINE HCL 5 MG TABLET FT SCH ×2 (08:27→14:42)
[2019-08-24] MEDS: JEVITY 1.5 CAL LIQUID 1,000 ML BOT FT SCH ×3 (08:28→14:42)
[2019-08-24] MEDS ORDERED: POTASSIUM CL SA 10 MEQ TAB PO SCH (09:00)
[2019-08-24] MEDS ORDERED: POTASSIUM 25 MEQ EFFERV TAB PO SCH (09:00)
[2019-08-24] MEDS: NS KCL 20MEQ 20 MEQ/1,000 ML BAG IV SCH (12:00)
[2019-08-24 12:48] VITALS: O2SAT 95
[2019-08-24 12:49] VITALS: BP 120/72; TEMP 97.2
--- NOTE | 2019-08-24 14:58 | P.DS ---
Admission Date: 08/22/19 Discharge Date: 08/24/19 Disposition: DC HOME/HOME HEALTH CARE Discharge Condition: FAIR Reason for Admission: Falls - Problems (1) Chronic atrial fibrillation Current Visit: Yes Status: Acute (2) Hypokalemia Current Visit: Yes Status: Acute (3) Repeated falls Current Visit: Yes Status: Acute (4) HTN (hypertension) Onset Date: 06/12/17 Current Visit: No Status: Acute Qualifiers: (5) New onset atrial fibrillation Onset Date: 06/12/17 Current Visit: No Status: Acute Brief History of Present Illness: History of Present Illness: 63-year-old gentleman with a history of chronic atrial fibrillation on chronic anticoagulation presented emergency department with a complaint of multiple falls. Patient reports multiple falls over the last few days. He denied any shortness of breath or chest pain or any symptoms preceding the falls. He denies any dizziness. Workup in the ED revealed hypokalemia. CT images of the spine shows no acute disease, head CT shows no acute disease. Patient is placed under observation for further evaluation for the multiple falls. Hospital Course: Patient with history of HTN, dysphagia, s/p PEG tube feeding, chronic hypokalemia admitted because of weakness and recurrent falls at home. On admission he was noted with hypokalemia with potassium of 2.3. Potassium has been repleted. Patient is ambulating with physical therapy now. He is tolerating p.o. well. He will discharge home with home PT. His home dose of potassium increase to 20 mEq b.i.d. Vital Signs/Physical Exam: Temp Pulse Resp BP Pulse Ox 97.2 F 112 H 19 120/72 96 08/24/19 12:08/24/19 12:08/24/19 12:08/24/19 12:08/24/19 12:00 General: Alert, In no apparent distress, Oriented x3 HEENT: Atraumatic, Normocephalic, PERRLA Neck: Supple, 2+ carotid pulse no bruit, JVD not distended Respiratory: Clear to auscultation bilaterally, Normal air movement Cardiovascular: No edema, Normal pulses, Regular rate/rhythm, Normal S1 S2 Gastrointestinal: Normal bowel sounds, Soft and benign, Non-distended Musculoskeletal: No clubbing, No swelling Neurological: Normal speech, Normal strength at 5/5 x4 extr Laboratory Data at Discharge: WBC 9.8 K/uL (4.3-10.9) 08/23/19 05:30 Hgb 11.5 g/dL (13.6-17.9) L 08/23/19 05:30 Hct 36.7 % (39.6-49.0) L 08/23/19 05:30 Plt Count 277 K/uL (152-406) 08/23/19 05:30 PT 20.7 SECONDS (9.5-12.5) H 08/21/19 19:40 INR 1.77 08/21/19 19:40 APTT 33.4 SECONDS (24.3-36.9) 08/21/19 19:40 Sodium 142 mmol/L (136-145) 08/24/19 05:14 Potassium 3.7 mmol/L (3.5-5.1) 08/24/19 05:14 BUN 16 mg/dL (7-18) 08/24/19 05:14 Creatinine 0.70 mg/dL (0.55-1.3) 08/24/19 05:14 Glucose 90 mg/dL (74-106) 08/24/19 05:14 Phosphorus 2.9 mg/dL (2.5-4.9) 08/24/19 05:14 Magnesium 2.6 mg/dL (1.8-2.4) H 08/23/19 05:30 Total Bilirubin 1.3 mg/dL (0.2-1.0) H 08/21/19 19:40 AST 46 U/L (15-37) H 08/21/19 19:40 ALT 28 U/L (12-78) 08/21/19 19:40 Alkaline Phosphatase 167 U/L (45-117) H 08/21/19 19:40 Troponin I 0.02 ng/mL (0.0-0.045) 08/22/19 05:10 Lipase 44 U/L (73-393) L 08/21/19 19:40 Home Medications: Apixaban [Eliquis] 5 mg PO BID 03/11/19 Furosemide 40 mg FT BID 03/11/19 Amiodarone HCl [Cordarone*] 200 mg FT BID 08/22/19 Aspirin Chewable [Aspirin Chewable*] 81 mg FT DAILY 08/22/19 Atorvastatin Calcium [Lipitor] 40 mg FT BEDTIME 08/22/19 Ferrous Sulfate [Ferrous Sulfate*] 325 mg FT BID 08/22/19 Ibuprofen [Children's Ibuprofen] 100 mg FT DAILY 08/22/19 Jevity 1.5 Barney [Jevity 1.5 Barney*] 240 ml FT 5XD 08/22/19 Melatonin 5 mg FT BEDTIME 08/22/19 Midodrine HCl [Proamatine*] 5 mg FT TID 08/22/19 Potassium Chloride 15 ml FT BID #400 ml 08/24/19 New Medications: Potassium Chloride 15 ml FT BID #400 ml Diet: Regular Activity: Fall precautions Time spent managing pt's care (in minutes): 35
== END 2019-08-24 16:53 | disposition home health service (06) | DRG 641 ==
LOC: ER 18:39 → ERHOLD 08-22 00:38 → 4TH 08-22 00:55 → 2ND 08-22 21:17
PROVIDERS: ADMIT Internal Medicine; ATTEND Internal Medicine
PROC: 8E0ZXY6 Isolation (ICD-10-PCS; principal; 2019-08-22)
DX: E87.6 Hypokalemia (principal); I48.20 Chronic atrial fibrillation, unspecified; I10 Essential (primary) hypertension; J44.9 Chronic obstructive pulmonary disease, unspecified; R05 Cough; Z79.01 Long term (current) use of anticoagulants; Z91.81 History of falling; Z79.891 Long term (current) use of opiate analgesic; Z79.899 Other long term (current) drug therapy; Z95.1 Presence of aortocoronary bypass graft; Z86.73 Personal history of transient ischemic attack (TIA), and cerebral infarction without residual deficits; Z93.1 Gastrostomy status; Z79.82 Long term (current) use of aspirin; Z20.828 Contact with and (suspected) exposure to other viral communicable diseases
CPT/HCPCS: 36415; 70450; 71045; 72128; 72131; 80048; 80076; 81003; 81015; 82550; 82553; 83690; 83735; 83880; 84100; 84132; 84443; 84484; 85025; 85610; 85730; 87040; 87070; 87081; 87804; 93005; 94760; 97112; 97116; 97161; 97530; 99285; J7030; U0002

== ENCOUNTER 2019-08-29 18:15 | Inpatient (IN) | payer OTHER ==
[2019-08-29] MEDS: Rifaximin 550 MG Tab PO SCH ×3 (00:30→21:00)
--- OUTSIDE RECORDS SUMMARY | 2019-08-29 18:22 | XMS REPORT | Clinical Summary ---
:1955 Author Organization [facility] Address [address] [place] [address] Care Team Providers Name Role Phone Pcp, [...] hypercapnia (HCC); MD Ammy Simple chronic bronchitis ([facility]); France Drake History of alcohol use disorder; MD Leonor Severe protein- calorie malnutrition (HCC); Metabolic alkal osis; Elevated liver function tests 05/30/2019 Telephone Critical Care Petrona Fountain, [id number] Call Medicine 05/08/2019 Hospital Encounter Radiology Manoje, [place] Pleural effusion Nia 05/08/2019 Outside Orders Central Scheduling Manoje, [place] Pleura l effusion Nia (Primary Dx) 04/23/2019 Travel 04/14/2019 Surgery Fernando Andrews THORACOSCOPY MD Bob (VATS),DECORTIC ATION 04/14/2019 Anesthesia Event Elham Holguin MD 04/11/2019 Anesthesia Event Gastroenterology Quiana Chavez, 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 04/11/2019 Surgery Gastroenterology Gabriel Peña UPPER END OSCOPY,PEG MD Kadeem 03/20/2019 Orders Only General Internal Medicine 03/19/2019 Hospital Encounter Cardiology Robb, Hypovolem ic shock (HCC) (Primary Dx); - Britton Acute hypercapn ic respiratory failure (HCC); 04/25/2019 MD Johnnie Cerebrovascular accident (CVA), unspecif ied mechanism ([facility]); Tomer Lora Acute metaboli c encephalopathy; MD Evelyn Longstanding persistent atrial fibrillat ion; Laya Tabares, Moderate pr otein-calorie malnutrition (HCC); Jerald Whitney, Acute on chr onic diastolic CHF (congestive heart failure), NYHA class 4 ([facility]); Atrial fibrillation with RVR ([facility]); Jean Marie Leukocytosis, u nspecified type; Britton Other specified hypotension; MD Irineo Chronic pleural effusion; Areli Hong MD Bilateral pleural effusion; Nalam, Yahaira Acute respirato ry failure with hypoxia and hypercapnia ([facility]); MD Sangita Aspiration pneumonia, unspecified aspira tion pneumonia type, unspecified laterality, unspecified part of lung ([facility]); Bharti Kamara MD Acute on chronic respiratory [...] Documentation Internal Medicine Inna Bailey MD after 08/28/2018 Family History Medical History Relation Name Comments [...] containing 4 or more times a w [place] 01/21/2019 alcohol? How many drinks containing alcohol [...] YEARS AT RISK (1 of 1 - 1960 PPSV23) INFLUENZA VACCINE (#1) 2019 Procedures Procedure Name Priority Date/Time Associated [...] RHYTHM STRIP - SCAN 05/01/2019 5:29 PM [employer] RHYTHM STRIP - SCAN 04/28/2019 3:01 PM [employer] RHYTHM STRIP - SCAN 04/28/2019 3:01 PM [employer] XR CHEST 1 VIEW Routine 04/25/2019 6:45 Results for PORTABLE/BEDSIDE AM [employer] this proced ure are in the results section. CBC W/PLT COUNT & AUTO Routine 04/25/2019 4:52 R esults for DIFFERENTIAL AM [employer] this procedure are in the results section. PHOSPHORUS Routine 04/25/2019 4:52 Results for AM [employer] this procedure are in the results section. MAGNESIUM Routine 04/25/2019 4:52 Results for AM [employer] this procedure are in the results section. CBC W/PLT COUNT & AUTO Routine 04/25/2019 4:52 R esults for DIFFERENTIAL AM [employer] this procedure are in the results section. BASIC METABOLIC PANEL (7) Routine 04/25/2019 4:52 Results for AM [employer] this procedure are in the results section. XR CHEST 1 VIEW Routine 04/24/2019 6:56 Results for PORTABLE/BEDSIDE AM [employer] this proced ure are in the results section. CBC W/PLT COUNT & AUTO Routine 04/24/2019 4:11 R esults for DIFFERENTIAL AM [employer] this procedure are in the results section. PHOSPHORUS Routine 04/24/2019 4:11 Results for AM [employer] this procedure are in the results section. MAGNESIUM Routine 04/24/2019 4:11 Results for AM [employer] this procedure are in the results section. CBC W/PLT COUNT & AUTO Routine 04/24/2019 4:11 R esults for DIFFERENTIAL AM [employer] this procedure are in the results section. BASIC METABOLIC PANEL (7) Routine 04/24/2019 4:11 Results for AM [employer] this procedure are in the results section. XR CHEST 1 VIEW Routine 04/23/2019 1:57 Results for PORTABLE/BEDSIDE PM [employer] this proced ure are in the results section. XR CHEST 1 VIEW Routine 04/23/2019 6:31 Results for PORTABLE/BEDSIDE AM [employer] this proced ure are in the results section. CBC W/PLT COUNT & AUTO Routine 04/23/2019 3:53 R esults for DIFFERENTIAL AM [employer] this procedure are in the results section. PREALBUMIN Routine 04/23/2019 3:53 Results for AM [employer] this procedure are in the results section. PHOSPHORUS Routine 04/23/2019 3:53 Results for AM [employer] this procedure are in the results section. MAGNESIUM Routine 04/23/2019 3:53 Results for AM [employer] this procedure are in the results section. CBC W/PLT COUNT & AUTO Routine 04/23/2019 3:53 R esults for DIFFERENTIAL AM [employer] this procedure are in the results section. BASIC METABOLIC PANEL (7) Routine 04/23/2019 3:53 Results for AM [employer] this procedure are in the results section. XR ESOPH SWALLOW FUNCTION Routine 04/22/2019 2:30 Results for W/CINE VIDEO PM [employer] this procedure are in the results section. XR CHEST 1 VIEW Routine 04/22/2019 5:49 Results for PORTABLE/BEDSIDE AM [employer] this proced ure are in the results section. PHOSPHORUS Routine 04/22/2019 4:02 Results for AM [employer] this procedure are in the results section. MAGNESIUM Routine 04/22/2019 4:02 Results for AM [employer] this procedure are in the results section. BASIC METABOLIC PANEL (7) Routine 04/22/2019 4:02 Results for AM [employer] this procedure are in the results section. CBC W/PLT COUNT & AUTO Routine 04/22/2019 3:23 R esults for DIFFERENTIAL AM [employer] this procedure are in the results section. CBC W/PLT COUNT & AUTO Routine 04/22/2019 3:23 R esults for DIFFERENTIAL AM [employer] this procedure are in the results section. MAGNESIUM Routine 04/21/2019 12:23 Results for PM [employer] this procedure are in the results section. BASIC METABOLIC PANEL (7) Routine 04/21/2019 12:23 Results for PM [employer] this procedure are in the results section. XR CHEST 1 VIEW Routine 04/21/2019 3:59 Results for PORTABLE/BEDSIDE AM [employer] this proced ure are in the results section. PHOSPHORUS Routine 04/21/2019 3:43 Results for AM [employer] this procedure are in the results section. MAGNESIUM Routine 04/21/2019 3:43 Results for AM [employer] this procedure are in the results section. BASIC METABOLIC PANEL (7) Routine 04/21/2019 3:43 Results for AM [employer] this procedure are in the results section. CBC W/PLT COUNT & AUTO Routine 04/21/2019 3:42 R esults for DIFFERENTIAL AM [employer] this procedure are in the results section. CBC W/PLT COUNT & AUTO Routine 04/21/2019 3:42 R esults for DIFFERENTIAL AM [employer] this procedure are in the results section. CBC W/PLT COUNT & AUTO Routine 04/20/2019 3:19 R esults for DIFFERENTIAL PM [employer] this procedure are in the results section. MAGNESIUM Routine 04/20/2019 3:19 Results for PM [employer] this procedure are in the results section. CBC W/PLT COUNT & AUTO Routine 04/20/2019 3:19 R esults for DIFFERENTIAL PM [employer] this procedure are in the results section. PHOSPHORUS Routine 04/20/2019 3:19 Results for PM [employer] this procedure are in the results section. BASIC METABOLIC PANEL (7) Routine 04/20/2019 3:19 Results for PM [employer] this procedure are in the results section. POCT-GLUCOSE METER Routine 04/20/2019 12:17 Resul ts for PM [employer] this procedure are in the results section. XR CHEST 1 VIEW Routine 04/20/2019 5:50 Results for PORTABLE/BEDSIDE AM [employer] this proced ure are in the results section. CBC W/PLT COUNT & AUTO Routine 04/20/2019 3:21 R esults for DIFFERENTIAL AM [employer] this procedure are in the results section. MAGNESIUM Routine 04/20/2019 3:21 Results for AM [employer] this procedure are in the results section. CBC W/PLT COUNT & AUTO Routine 04/20/2019 3:21 R esults for DIFFERENTIAL AM [employer] this procedure are in the results section. PHOSPHORUS Routine 04/20/2019 3:21 Results for AM [employer] this procedure are in the results section. BASIC METABOLIC PANEL (7) Routine 04/20/2019 3:21 Results for AM [employer] this procedure are in the results section. POCT-GLUCOSE METER Routine 04/20/2019 12:07 Resul ts for AM [employer] this procedure are in the results section. TRANSFUSION SERVICE 04/19/2019 6:02 REPORT - SCAN PM [employer] CBC W/PLT COUNT & AUTO Routine 04/19/2019 5:34 R esults for DIFFERENTIAL PM [employer] this procedure are in the results section. MAGNESIUM Routine 04/19/2019 5:34 Results for PM [employer] this procedure are in the results section. CBC W/PLT COUNT & AUTO Routine 04/19/2019 5:34 R esults for DIFFERENTIAL PM [employer] this procedure are in the results section. PHOSPHORUS Routine 04/19/2019 5:34 Results for PM [employer] this procedure are in the results section. BASIC METABOLIC PANEL (7) Routine 04/19/2019 5:34 Results for PM [employer] this procedure are in the results section. XR CHEST 1 VIEW Routine 04/19/2019 5:48 Results for PORTABLE/BEDSIDE AM [employer] this proced ure are in the results section. CBC W/PLT COUNT & AUTO Routine 04/19/2019 3:26 R esults for DIFFERENTIAL AM [employer] this procedure are in the results section. MAGNESIUM Routine 04/19/2019 3:26 Results for AM [employer] this procedure are in the results section. CBC W/PLT COUNT & AUTO Routine 04/19/2019 3:26 R esults for DIFFERENTIAL AM [employer] this procedure are in the results section. PHOSPHORUS Routine 04/19/2019 3:26 Results for AM [employer] this procedure are in the results section. BASIC METABOLIC PANEL (7) Routine 04/19/2019 3:26 Results for AM [employer] this procedure are in the results section. POCT-GLUCOSE METER Routine 04/19/2019 12:23 Resul ts for AM [employer] this procedure are in the results section. PREPARE LEUKO-REDUCED RBC Routine 04/18/2019 11:54 Results for PM [employer] this procedure are in the results section. POCT-GLUCOSE METER Routine 04/18/2019 6:27 Resul ts for PM [employer] this procedure are in the results section. TRANSFUSION SERVICE 04/18/2019 6:02 REPORT - SCAN PM [employer] CBC W/PLT COUNT & AUTO Routine 04/18/2019 6:02 R esults for DIFFERENTIAL PM [employer] this procedure are in the results section. MAGNESIUM Routine 04/18/2019 6:02 Results for PM [employer] this procedure are in the results section. CBC W/PLT COUNT & AUTO Routine 04/18/2019 6:02 R esults for DIFFERENTIAL PM [employer] this procedure are in the results section. PHOSPHORUS Routine 04/18/2019 6:02 Results for PM [employer] this procedure are in the results section. BASIC METABOLIC PANEL (7) Routine 04/18/2019 6:02 Results for PM [employer] this procedure are in the results section. POCT-GLUCOSE METER Routine 04/18/2019 11:46 Resul ts for AM [employer] this procedure are in the results section. POCT-GLUCOSE METER Routine 04/18/2019 5:54 Resul ts for AM [employer] this procedure are in the results section. XR CHEST 1 VIEW Routine 04/18/2019 5:36 Results for PORTABLE/BEDSIDE AM [employer] this proced ure are in the results section. BLOOD GAS, ARTERIAL Routine 04/18/2019 2:37 Resu lts for AM [employer] this procedure are in the results section. CBC W/PLT COUNT & AUTO Routine 04/18/2019 2:36 R esults for DIFFERENTIAL AM [employer] this procedure are in the results section. MAGNESIUM Routine 04/18/2019 2:36 Results for AM [employer] this procedure are in the results section. CBC W/PLT COUNT & AUTO Routine 04/18/2019 2:36 R esults for DIFFERENTIAL AM [employer] this procedure are in the results section. PHOSPHORUS Routine 04/18/2019 2:36 Results for AM [employer] this procedure are in the results section. BASIC METABOLIC PANEL (7) Routine 04/18/2019 2:36 Results for AM [employer] this procedure are in the results section. POCT-GLUCOSE METER Routine 04/18/2019 12:19 Resul ts for AM [employer] this procedure are in the results section. POCT-GLUCOSE METER Routine 04/17/2019 6:30 Resul ts for PM [employer] this procedure are in the results section. TRANSFUSION SERVICE 04/17/2019 5:52 REPORT - SCAN PM [employer] BLOOD GAS, ARTERIAL Routine 04/17/2019 4:17 Resu lts for PM [employer] this procedure are in the results section. CBC W/PLT COUNT & AUTO Routine 04/17/2019 4:16 R esults for DIFFERENTIAL PM [employer] this procedure are in the results section. MAGNESIUM Routine 04/17/2019 4:16 Results for PM [employer] this procedure are in the results section. CBC W/PLT COUNT & AUTO Routine 04/17/2019 4:16 R esults for DIFFERENTIAL PM [employer] this procedure are in the results section. PHOSPHORUS Routine 04/17/2019 4:16 Results for PM [employer] this procedure are in the results section. BASIC METABOLIC PANEL (7) Routine 04/17/2019 4:16 Results for PM [employer] this procedure are in the results section. POCT-GLUCOSE METER Routine 04/17/2019 1:14 Resul ts for PM [employer] this procedure are in the results section. TRANSFUSE LEUKO-REDUCED Routine 04/17/2019 11:41 RED BLOOD CELLS AM [employer] XR CHEST 1 VIEW Routine 04/17/2019 6:07 Results for PORTABLE/BEDSIDE AM [employer] this proced ure are in the results section. POCT-GLUCOSE METER Routine 04/17/2019 5:32 Resul ts for AM [employer] this procedure are in the results section. CBC W/PLT COUNT & AUTO Routine 04/17/2019 3:30 R esults for DIFFERENTIAL AM [employer] this procedure are in the results section. MAGNESIUM Routine 04/17/2019 3:30 Results for AM [employer] this procedure are in the results section. APTT Routine 04/17/2019 3:30 Results for AM [employer] this procedure are in the results section. PROTHROMBIN TIME/INR Routine 04/17/2019 3:30 Res ults for AM [employer] this procedure are in the results section. CBC W/PLT COUNT & AUTO Routine 04/17/2019 3:30 R esults for DIFFERENTIAL AM [employer] this procedure are in the results section. PHOSPHORUS Routine 04/17/2019 3:30 Results for AM [employer] this procedure are in the results section. BASIC METABOLIC PANEL (7) Routine 04/17/2019 3:30 Results for AM [employer] this procedure are in the results section. BLOOD GAS, ARTERIAL Routine 04/17/2019 3:30 Resu lts for AM [employer] this procedure are in the results section. HEMOGLOBIN AND HEMATOCRIT STAT 04/17/2019 12:27 Results for AM [employer] this procedure are in the results section. POCT-GLUCOSE METER Routine 04/17/2019 12:10 Resul ts for AM [employer] this procedure are in the results section. PREPARE LEUKO-REDUCED RBC STAT 04/16/2019 11:54 Results for PM [employer] this procedure are in the results section. PREPARE LEUKO-REDUCED RBC STAT 04/16/2019 11:54 Results for PM [employer] this procedure are in the results section. PREPARE LEUKO-REDUCED RBC STAT 04/16/2019 11:54 Results for PM [employer] this procedure are in the results section. PREPARE PLASMA STAT 04/16/2019 11:54 Results f or PM [employer] this procedure are in the results section. PREPARE CRYOPRECIPITATE Routine 04/16/2019 11:54 Results for PM [employer] this procedure are in the results section. PREPARE LEUKO-REDUCED RBC Routine 04/16/2019 11:54 Results for PM [employer] this procedure are in the results section. PREPARE LEUKO-REDUCED RBC Routine 04/16/2019 11:54 Results for PM [employer] this procedure are in the results section. PERIPHERAL VASCULAR 04/16/2019 9:23 REPORT - SCAN PM [employer] POCT-GLUCOSE METER Routine 04/16/2019 6:48 Resul ts for PM [employer] this procedure are in the results section. TRANSFUSION SERVICE 04/16/2019 5:52 REPORT - SCAN PM [employer] CBC W/PLT COUNT & AUTO Routine 04/16/2019 4:02 R esults for DIFFERENTIAL PM [employer] this procedure are in the results section. BASIC METABOLIC PANEL (7) Routine 04/16/2019 4:02 Results for PM [employer] this procedure are in the results section. CBC W/PLT COUNT & AUTO Routine 04/16/2019 4:02 R esults for DIFFERENTIAL PM [employer] this procedure are in the results section. PHOSPHORUS Routine 04/16/2019 4:02 Results for PM [employer] this procedure are in the results section. BLOOD GAS, ARTERIAL Routine 04/16/2019 4:02 Resu lts for PM [employer] this procedure are in the results section. POCT-GLUCOSE METER Routine 04/16/2019 1:24 Resul ts for PM [employer] this procedure are in the results section. HEMOGLOBIN AND HEMATOCRIT Routine 04/16/2019 9:09 Results for AM [employer] this procedure are in the results section. XR CHEST 1 VIEW Routine 04/16/2019 3:46 Results for PORTABLE/BEDSIDE AM [employer] this proced ure are in the results section. CBC W/PLT COUNT & AUTO Routine 04/16/2019 3:28 R esults for DIFFERENTIAL AM [employer] this procedure are in the results section. CALCIUM, IONIZED STAT 04/16/2019 3:28 Results for AM [employer] this procedure are in the results section. APTT Routine 04/16/2019 3:28 Results for AM [employer] this procedure are in the results section. PROTHROMBIN TIME/INR Routine 04/16/2019 3:28 Res ults for AM [employer] this procedure are in the results section. CBC W/PLT COUNT & AUTO Routine 04/16/2019 3:28 R esults for DIFFERENTIAL AM [employer] this procedure are in the results section. PHOSPHORUS Routine 04/16/2019 3:28 Results for AM [employer] this procedure are in the results section. BASIC METABOLIC PANEL (7) Routine 04/16/2019 3:28 Results for AM [employer] this procedure are in the results section. MAGNESIUM Routine 04/16/2019 3:28 Results for AM [employer] this procedure are in the results section. BLOOD GAS, ARTERIAL Routine 04/16/2019 3:24 Resu lts for AM [employer] this procedure are in the results section. TRANSFUSE LEUKO-REDUCED Routine 04/16/2019 1:54 RED BLOOD CELLS AM [employer] POCT-GLUCOSE METER Routine 04/15/2019 11:14 Resul ts for PM [employer] this procedure are in the results section. CBC W/PLT COUNT & AUTO Routine 04/15/2019 10:51 R esults for DIFFERENTIAL PM [employer] this procedure are in the results section. CBC W/PLT COUNT & AUTO Routine 04/15/2019 10:51 R esults for DIFFERENTIAL PM [employer] this procedure are in the results section. TRANSFUSE LEUKO-REDUCED Routine 04/15/2019 9:45 RED BLOOD CELLS PM [employer] TRANSFUSION SERVICE 04/15/2019 6:08 REPORT - SCAN PM [employer] US GUIDE, VASCULAR ACCESS Routine 04/15/2019 5:48 Hypovolemic shock Results for PM [employer] (HCC) this procedure are in the results section. INSERT NON-TUNNEL CV CATH Routine 04/15/2019 5:48 Hypovolemic shock Results for PM [employer] (HCC) this procedure are in the results section. BLOOD GAS, ARTERIAL Routine 04/15/2019 4:04 Resu lts for PM [employer] this procedure are in the results section. CBC W/PLT COUNT & AUTO Routine 04/15/2019 4:03 R esults for DIFFERENTIAL PM [employer] this procedure are in the results section. CBC W/PLT COUNT & AUTO Routine 04/15/2019 4:03 R esults for DIFFERENTIAL PM [employer] this procedure are in the results section. PHOSPHORUS Routine 04/15/2019 4:03 Results for PM [employer] this procedure are in the results section. BASIC METABOLIC PANEL (7) Routine 04/15/2019 4:03 Results for PM [employer] this procedure are in the results section. TRANSFUSE LEUKO-REDUCED STAT 04/15/2019 2:21 RED BLOOD CELLS PM [employer] XR CHEST 1 VIEW STAT 04/15/2019 2:01 Results for PORTABLE/BEDSIDE PM [employer] this proced ure are in the results section. VENOUS DOPPLER ARM, LEFT CHRISSIE 04/15/2019 11:30 Results for AM [employer] this procedure are in the results section. THROMBOELASTOGRAPH (TEG) STAT 04/15/2019 11:28 Results for AM [employer] this procedure are in the results section. POCT-GLUCOSE METER Routine 04/15/2019 11:22 Resul ts for AM [employer] this procedure are in the results section. TRANSFUSE PLASMA Routine 04/15/2019 11:03 AM [employer] ECG 12-LEAD Routine 04/15/2019 10:36 AM [employer] Procedure Note - Interface, External Ris In - 04/15/2019 10:41 AM [employer] Ventricular Rate 51 BPM Atrial Rate 51 BPM QRS Duration 118 ms Q-T Interval 492 ms QTC Calculation(Bazett) 453 ms P Butler 63 degrees R Butler 23 degrees T Butler 5 degrees Sinus bradycardia Septal infarct , age undeter mined Abnormal ECG When compared with ECG of 12:19, Septal infarct is now Presen t Nonspecific T wave abnormali ty now evident in Lateral leads ECG 12-LEAD STAT 04/15/2019 10:36 AM Results for this [employer] procedure are i n the results section. ECG 12-LEAD Routine 04/15/2019 10:35 AM Results for this [employer] procedure are i n the results section. TRANSFUSE Routine 04/15/2019 9:22 AM CRYOPRECIPITATE [employer] CBC W/PLT COUNT & AUTO STAT 04/15/2019 8:52 AM Results for this DIFFERENTIAL [employer] procedure are i n the results section. CBC W/PLT COUNT & AUTO STAT 04/15/2019 8:52 AM Results for this DIFFERENTIAL [employer] procedure are i n the results section. TRANSFUSE LEUKO-REDUCED Routine 04/15/2019 7:56 AM RED BLOOD CELLS [employer] TRANSFUSE LEUKO-REDUCED Routine 04/15/2019 6:24 AM RED BLOOD CELLS [employer] XR CHEST 1 VIEW Routine 04/15/2019 4:38 AM Resul ts for this PORTABLE/BEDSIDE [employer] procedure a re in the results section. BLOOD GAS, ARTERIAL Routine 04/15/2019 4:07 AM R esults for this [employer] procedure are i n the results section. CBC W/PLT COUNT & AUTO Routine 04/15/2019 4:05 AM Results for this DIFFERENTIAL [employer] procedure are i n the results section. CBC W/PLT COUNT & AUTO Routine 04/15/2019 4:05 AM Results for this DIFFERENTIAL [employer] procedure are i n the results section. CALCIUM, IONIZED Routine 04/15/2019 4:05 AM Resu lts for this [employer] procedure are i n the results section. LACTIC ACID, ARTERIAL Routine 04/15/2019 4:05 AM Results for this [employer] procedure are i n the results section. PHOSPHORUS Routine 04/15/2019 4:05 AM Results for this [employer] procedure are i n the results section. BASIC METABOLIC PANEL Routine 04/15/2019 4:05 AM Results for this (7) [employer] procedure are i n the results section. MAGNESIUM Routine 04/15/2019 4:05 AM Results for this [employer] procedure are i n the results section. TRANSFUSE LEUKO-REDUCED Routine 04/15/2019 3:39 AM RED BLOOD CELLS [employer] TRANSFUSE LEUKO-REDUCED Routine 04/15/2019 2:17 AM RED BLOOD CELLS [employer] FIBRINOGEN Routine 04/15/2019 1:58 AM Results for this [employer] procedure are i n the results section. PT/APTT STAT 04/15/2019 1:58 AM Results for this [employer] procedure are i n the results section. APTT Routine 04/15/2019 1:58 AM Results for this [employer] procedure are i n the results section. PROTHROMBIN TIME/INR Routine 04/15/2019 1:58 AM Results for this [employer] procedure are i n the results section. POCT-GLUCOSE METER Routine 04/15/2019 12:23 AM Re sults for this [employer] procedure are i n the results section. CBC W/PLT COUNT & AUTO Routine 04/15/2019 12:07 AM Results for this DIFFERENTIAL [employer] procedure are i n the results section. CBC W/PLT COUNT & AUTO Routine 04/15/2019 12:07 AM Results for this DIFFERENTIAL [employer] procedure are i n the results section. CORTISOL Routine 04/15/2019 12:07 AM Results for this [employer] procedure are i n the results section. XR CHEST 1 VIEW STAT 04/14/2019 8:32 PM Resul ts for this PORTABLE/BEDSIDE [employer] procedure a re in the results section. BLOOD GAS, ARTERIAL STAT 04/14/2019 8:00 PM R esults for this [employer] procedure are i n the results section. CALCIUM, IONIZED Routine 04/14/2019 7:57 PM Resu lts for this [employer] procedure are i n the results section. PHOSPHORUS Routine 04/14/2019 7:57 PM Results for this [employer] procedure are i n the results section. MAGNESIUM Routine 04/14/2019 7:57 PM Results for this [employer] procedure are i n the results section. AFB CULTURE + SMEAR Routine 04/14/2019 6:48 PM R esults for this (NON-SPUTUM) [employer] procedure are i n the results section. FUNGUS CULTURE + SMEAR Routine 04/14/2019 6:48 PM Results for this [employer] procedure are i n the results section. SPIN/CONCENTRATION Routine 04/14/2019 6:48 PM Re sults for this CHARGE [employer] procedure are i n the results section. BRONCHIAL CULTURE + GRAM Routine 04/14/2019 6:48 PM Results for this STAIN [employer] procedure are i n the results section. HGB/HCT (H&H) - STAT LAB STAT 04/14/2019 5:49 PM Results for this [employer] procedure are i n the results section. GLUCOSE-STAT LAB STAT 04/14/2019 5:49 PM Resu lts for this [employer] procedure are i n the results section. POTASSIUM-STAT LAB STAT 04/14/2019 5:49 PM Re sults for this [employer] procedure are i n the results section. SODIUM NA-STAT LAB STAT 04/14/2019 5:49 PM Re sults for this [employer] procedure are i n the results section. BLOOD GAS, ARTERIAL STAT 04/14/2019 5:49 PM R esults for this [employer] procedure are i n the results section. CALCIUM, IONIZED STAT 04/14/2019 5:49 PM Resu lts for this [employer] procedure are i n the results section. RRL CRITICAL LABS STAT 04/14/2019 5:49 PM Res ults for this (ABG,NA,K,H&H,GLUCOSE) [employer] proce dure are in the results section. SURGICALLY OBTAINED Routine 04/14/2019 5:15 PM R esults for this CULTURE + GRAM STAIN [employer] procedu re are in the results section. FUNGUS CULTURE + SMEAR Routine 04/14/2019 5:15 PM Results for this [employer] procedure are i n the results section. ANAEROBIC CULTURE Routine 04/14/2019 5:15 PM Res ults for this [employer] procedure are i n the results section. AFB CULTURE + SMEAR Routine 04/14/2019 5:15 PM R esults for this (NON-SPUTUM) [employer] procedure are i n the results section. SURGICALLY OBTAINED Routine 04/14/2019 5:10 PM R esults for this CULTURE + GRAM STAIN [employer] procedu re are in the results section. FUNGUS CULTURE + SMEAR Routine 04/14/2019 5:10 PM Results for this [employer] procedure are i n the results section. ANAEROBIC CULTURE Routine 04/14/2019 5:10 PM Res ults for this [employer] procedure are i n the results section. AFB CULTURE + SMEAR Routine 04/14/2019 5:10 PM R esults for this (NON-SPUTUM) [employer] procedure are i n the results section. FUNGUS CULTURE + SMEAR Routine 04/14/2019 5:08 PM Results for this [employer] procedure are i n the results section. SURGICALLY OBTAINED Routine 04/14/2019 5:08 PM R esults for this CULTURE + GRAM STAIN [employer] procedu re are in the results section. ANAEROBIC CULTURE Routine 04/14/2019 5:08 PM Res ults for this [employer] procedure are i n the results section. AFB CULTURE + SMEAR Routine 04/14/2019 5:08 PM R esults for this (NON-SPUTUM) [employer] procedure are i n the results section. SURGICALLY OBTAINED Routine 04/14/2019 5:00 PM R esults for this CULTURE + GRAM STAIN [employer] procedu re are in the results section. FUNGUS CULTURE + SMEAR Routine 04/14/2019 5:00 PM Results for this [employer] procedure are i n the results section. ANAEROBIC CULTURE Routine 04/14/2019 5:00 PM Res ults for this [employer] procedure are i n the results section. AFB CULTURE + SMEAR Routine 04/14/2019 5:00 PM R esults for this (NON-SPUTUM) [employer] procedure are i n the results section. TISSUE EXAM AP Routine 04/14/2019 4:54 PM Results for this [employer] procedure are i n the results section. HGB/HCT (H&H) - STAT LAB STAT 04/14/2019 4:30 PM Results for this [employer] procedure are i n the results section. GLUCOSE-STAT LAB STAT 04/14/2019 4:30 PM Resu lts for this [employer] procedure are i n the results section. POTASSIUM-STAT LAB STAT 04/14/2019 4:30 PM Re sults for this [employer] procedure are i n the results section. SODIUM NA-STAT LAB STAT 04/14/2019 4:30 PM Re sults for this [employer] procedure are i n the results section. BLOOD GAS, ARTERIAL STAT 04/14/2019 4:30 PM R esults for this [employer] procedure are i n the results section. CALCIUM, IONIZED STAT 04/14/2019 4:30 PM Resu lts for this [employer] procedure are i n the results section. RRL CRITICAL LABS STAT 04/14/2019 4:30 PM Res ults for this (ABG,NA,K,H&H,GLUCOSE) [employer] proce dure are in the results section. CYTOLOGY AP Routine 04/14/2019 3:48 PM Results for this [employer] procedure are i n the results section. ANAEROBIC CULTURE Routine 04/14/2019 3:41 PM Res ults for this [employer] procedure are i n the results section. FUNGUS CULTURE + SMEAR Routine 04/14/2019 3:41 PM Results for this [employer] procedure are i n the results section. AFB CULTURE + SMEAR Routine 04/14/2019 3:41 PM R esults for this (NON-SPUTUM) [employer] procedure are i n the results section. SURGICALLY OBTAINED Routine 04/14/2019 3:41 PM R esults for this CULTURE + GRAM STAIN [employer] procedu re are in the results section. HGB/HCT (H&H) - STAT LAB STAT 04/14/2019 3:24 PM Results for this [employer] procedure are i n the results section. GLUCOSE-STAT LAB STAT 04/14/2019 3:24 PM Resu lts for this [employer] procedure are i n the results section. POTASSIUM-STAT LAB STAT 04/14/2019 3:24 PM Re sults for this [employer] procedure are i n the results section. SODIUM NA-STAT LAB STAT 04/14/2019 3:24 PM Re sults for this [employer] procedure are i n the results section. BLOOD GAS, ARTERIAL STAT 04/14/2019 3:24 PM R esults for this [employer] procedure are i n the results section. CALCIUM, IONIZED STAT 04/14/2019 3:24 PM Resu lts for this [employer] procedure are i n the results section. RRL CRITICAL LABS STAT 04/14/2019 3:24 PM Res ults for this (ABG,NA,K,H&H,GLUCOSE) [employer] proce dure are in the results section. BRONCHOSCOPY 04/14/2019 1:25 PM Empyema, right [employer] (HCC) THORACOSCOPY 04/14/2019 1:25 PM Empyema, right (VATS),DECORTICATION [employer] (HCC) ECG 12-LEAD Routine 04/14/2019 12:19 PM [employer] Procedure Note - Interface, External Ris In - 04/14/2019 12:20 PM [employer] Ventricular Rate 45 BPM Atrial Rate 45 BPM P-R Interval 178 ms QRS Duration 118 ms Q-T Interval 542 ms QTC Calculation(Bazett) 468 ms P Butler 67 degrees R Butler 20 degrees T Butler -1 degrees Sinus bradycardia Left ventricular hypertrophy [...] STAT 04/14/2019 12:19 Results for this PM [employer] procedure are i n the results section. XR CHEST 1 VIEW Routine 04/14/2019 10:05 Results for this PORTABLE/BEDSIDE AM [employer] procedure a re in the results section. CBC W/PLT COUNT & AUTO Routine 04/14/2019 1:01 R esults for this DIFFERENTIAL AM [employer] procedure are i n the results section. TYPE AND SCREEN, Routine 04/14/2019 1:01 Results for this AUTOMATED AM [employer] procedure are i n the results section. COMPREHENSIVE Add-On 04/14/2019 1:01 Results fo r this METABOLIC PANEL AM [employer] procedure ar e in the results section. PROTHROMBIN TIME/INR Routine 04/14/2019 1:01 Res ults for this AM [employer] procedure are i n the results section. BASIC METABOLIC PANEL Routine 04/14/2019 1:01 Re sults for this (7) AM [employer] procedure are i n the results section. PHOSPHORUS Routine 04/14/2019 1:01 Results for this AM [employer] procedure are i n the results section. MAGNESIUM Routine 04/14/2019 1:01 Results for this AM [employer] procedure are i n the results section. CBC W/PLT COUNT & AUTO Routine 04/14/2019 1:01 R esults for this DIFFERENTIAL AM [employer] procedure are i n the results section. POCT-GLUCOSE METER Routine 04/13/2019 7:57 Resul ts for this PM [employer] procedure are i n the results section. POCT-GLUCOSE METER Routine 04/13/2019 5:17 Resul ts for this PM [employer] procedure are i n the results section. POCT-GLUCOSE METER Routine 04/13/2019 11:52 Resul ts for this AM [employer] procedure are i n the results section. XR CHEST 1 VIEW Routine 04/13/2019 8:26 Results for this PORTABLE/BEDSIDE AM [employer] procedure a re in the results section. POCT-GLUCOSE METER Routine 04/13/2019 5:58 Resul ts for this AM [employer] procedure are i n the results section. CBC W/PLT COUNT & AUTO Routine 04/13/2019 4:50 R esults for this DIFFERENTIAL AM [employer] procedure are i n the results section. CBC W/PLT COUNT & AUTO Routine 04/13/2019 4:50 R esults for this DIFFERENTIAL AM [employer] procedure are i n the results section. HEPATIC FUNCTION PANEL Routine 04/13/2019 4:39 R esults for this AM [employer] procedure are i n the results section. BASIC METABOLIC PANEL Routine 04/13/2019 4:39 Re sults for this (7) AM [employer] procedure are i n the results section. PHOSPHORUS Routine 04/13/2019 4:39 Results for this AM [employer] procedure are i n the results section. MAGNESIUM Routine 04/13/2019 4:39 Results for this AM [employer] procedure are i n the results section. APTT Routine 04/13/2019 4:29 Results for this AM [employer] procedure are i n the results section. POCT-GLUCOSE METER Routine 04/12/2019 5:20 Resul ts for this PM [employer] procedure are i n the results section. POCT-GLUCOSE METER Routine 04/12/2019 12:05 Resul ts for this PM [employer] procedure are i n the results section. XR CHEST 1 VIEW Routine 04/12/2019 6:43 Results for this PORTABLE/BEDSIDE AM [employer] procedure a re in the results section. POCT-GLUCOSE METER Routine 04/12/2019 5:21 Resul ts for this AM [employer] procedure are i n the results section. CBC W/PLT COUNT & AUTO Routine 04/12/2019 5:17 R esults for this DIFFERENTIAL AM [employer] procedure are i n the results section. BASIC METABOLIC PANEL Routine 04/12/2019 5:17 Re sults for this (7) AM [employer] procedure are i n the results section. PHOSPHORUS Routine 04/12/2019 5:17 Results for this AM [employer] procedure are i n the results section. MAGNESIUM Routine 04/12/2019 5:17 Results for this AM [employer] procedure are i n the results section. CBC W/PLT COUNT & AUTO Routine 04/12/2019 5:17 R esults for this DIFFERENTIAL AM [employer] procedure are i n the results section. POCT-GLUCOSE METER Routine 04/12/2019 12:04 Resul ts for this AM [employer] procedure are i n the results section. POCT-GLUCOSE METER Routine 04/11/2019 5:35 Resul ts for this PM [employer] procedure are i n the results section. XR CHEST 1 VIEW Routine 04/11/2019 1:04 Results for this PORTABLE/BEDSIDE PM [employer] procedure a re in the results section. POCT-GLUCOSE METER Routine 04/11/2019 12:09 Resul ts for this PM [employer] procedure are i n the results section. POCT-GLUCOSE METER Routine 04/11/2019 10:39 Resul ts for this AM [employer] procedure are i n the results section. REPORT OF PROCEDURE - 04/11/2019 10:15 ENDOSCOPY URL AM [employer] UPPER ENDOSCOPY,PEG 04/11/2019 9:00 Dysphagia, AM [employer] unspecified type POCT-GLUCOSE METER Routine 04/11/2019 7:01 Resul ts for this AM [employer] procedure are i n the results section. CBC W/PLT COUNT & AUTO Routine 04/11/2019 5:28 R esults for this DIFFERENTIAL AM [employer] procedure are i n the results section. PROTHROMBIN TIME/INR Routine 04/11/2019 5:28 Res ults for this AM [employer] procedure are i n the results section. BASIC METABOLIC PANEL Routine 04/11/2019 5:28 Re sults for this (7) AM [employer] procedure are i n the results section. PHOSPHORUS Routine 04/11/2019 5:28 Results for this AM [employer] procedure are i n the results section. MAGNESIUM Routine 04/11/2019 5:28 Results for this AM [employer] procedure are i n the results section. CBC W/PLT COUNT & AUTO Routine 04/11/2019 5:28 R esults for this DIFFERENTIAL AM [employer] procedure are i n the results section. POCT-GLUCOSE METER Routine 04/11/2019 12:16 Resul ts for this AM [employer] procedure are i n the results section. POCT-GLUCOSE METER Routine 04/10/2019 2:51 Resul ts for this PM [employer] procedure are i n the results section. XR CHEST 1 VIEW Routine 04/10/2019 9:16 Results for this PORTABLE/BEDSIDE AM [employer] procedure a re in the results section. CBC W/PLT COUNT & AUTO Routine 04/10/2019 4:41 R esults for this DIFFERENTIAL AM [employer] procedure are i n the results section. BASIC METABOLIC PANEL Routine 04/10/2019 4:41 Re sults for this (7) AM [employer] procedure are i n the results section. PHOSPHORUS Routine 04/10/2019 4:41 Results for this AM [employer] procedure are i n the results section. MAGNESIUM Routine 04/10/2019 4:41 Results for this AM [employer] procedure are i n the results section. CBC W/PLT COUNT & AUTO Routine 04/10/2019 4:41 R esults for this DIFFERENTIAL AM [employer] procedure are i n the results section. POCT-GLUCOSE METER Routine 04/10/2019 12:37 Resul ts for this AM [employer] procedure are i n the results section. POCT-GLUCOSE METER Routine 04/09/2019 5:19 Resul ts for this PM [employer] procedure are i n the results section. XR ESOPH SWALLOW Routine 04/09/2019 1:56 Results for this FUNCTION W/CINE VIDEO PM [employer] proced ure are in the results section. BODY FLUID CULTURE + CHRISSIE 04/09/2019 12:10 Res ults for this GRAM STAIN PM [employer] procedure are i n the results section. POCT-GLUCOSE METER Routine 04/09/2019 11:47 Resul ts for this AM [employer] procedure are i n the results section. POCT-GLUCOSE METER Routine 04/09/2019 9:21 Resul ts for this AM [employer] procedure are i n the results section. XR CHEST 1 VIEW Routine 04/09/2019 6:51 Results for this PORTABLE/BEDSIDE AM [employer] procedure a re in the results section. POCT-GLUCOSE METER Routine 04/09/2019 6:16 Resul ts for this AM [employer] procedure are i n the results section. CBC W/PLT COUNT & AUTO Routine 04/09/2019 5:32 R esults for this DIFFERENTIAL AM [employer] procedure are i n the results section. BASIC METABOLIC PANEL Routine 04/09/2019 5:32 Re sults for this (7) AM [employer] procedure are i n the results section. PHOSPHORUS Routine 04/09/2019 5:32 Results for this AM [employer] procedure are i n the results section. MAGNESIUM Routine 04/09/2019 5:32 Results for this AM [employer] procedure are i n the results section. CBC W/PLT COUNT & AUTO Routine 04/09/2019 5:32 R esults for this DIFFERENTIAL AM [employer] procedure are i n the results section. POCT-GLUCOSE METER Routine 04/09/2019 1:56 Resul ts for this AM [employer] procedure are i n the results section. POCT-GLUCOSE METER Routine 04/08/2019 5:45 Resul ts for this PM [employer] procedure are i n the results section. POCT-GLUCOSE METER Routine 04/08/2019 12:36 Resul ts for this PM [employer] procedure are i n the results section. XR CHEST 1 VIEW Routine 04/08/2019 6:25 Results for this PORTABLE/BEDSIDE AM [employer] procedure a re in the results section. POCT-GLUCOSE METER Routine 04/08/2019 5:17 Resul ts for this AM [employer] procedure are i n the results section. CBC W/PLT COUNT & AUTO Routine 04/08/2019 4:12 R esults for this DIFFERENTIAL AM [employer] procedure are i n the results section. BASIC METABOLIC PANEL Routine 04/08/2019 4:12 Re sults for this (7) AM [employer] procedure are i n the results section. PHOSPHORUS Routine 04/08/2019 4:12 Results for this AM [employer] procedure are i n the results section. MAGNESIUM Routine 04/08/2019 4:12 Results for this AM [employer] procedure are i n the results section. CBC W/PLT COUNT & AUTO Routine 04/08/2019 4:12 R esults for this DIFFERENTIAL AM [employer] procedure are i n the results section. POCT-GLUCOSE METER Routine 04/08/2019 12:22 Resul ts for this AM [employer] procedure are i n the results section. BASIC METABOLIC PANEL Routine 04/07/2019 6:08 Re sults for this (7) PM [employer] procedure are i n the results section. POCT-GLUCOSE METER Routine 04/07/2019 5:36 Resul ts for this PM [employer] procedure are i n the results section. POCT-GLUCOSE METER Routine 04/07/2019 11:35 Resul ts for this AM [employer] procedure are i n the results section. XR CHEST 1 VIEW STAT 04/07/2019 11:21 Results for this PORTABLE/BEDSIDE AM [employer] procedure a re in the results section. XR CHEST 1 VIEW Routine 04/07/2019 9:52 Results for this PORTABLE/BEDSIDE AM [employer] procedure a re in the results section. POCT-GLUCOSE METER Routine 04/07/2019 6:38 Resul ts for this AM [employer] procedure are i n the results section. CBC W/PLT COUNT & AUTO Routine 04/07/2019 6:07 R esults for this DIFFERENTIAL AM [employer] procedure are i n the results section. BASIC METABOLIC PANEL Routine 04/07/2019 6:07 Re sults for this (7) AM [employer] procedure are i n the results section. PHOSPHORUS Routine 04/07/2019 6:07 Results for this AM [employer] procedure are i n the results section. MAGNESIUM Routine 04/07/2019 6:07 Results for this AM [employer] procedure are i n the results section. CBC W/PLT COUNT & AUTO Routine 04/07/2019 6:07 R esults for this DIFFERENTIAL AM [employer] procedure are i n the results section. POCT-GLUCOSE METER Routine 04/06/2019 11:48 Resul ts for this PM [employer] procedure are i n the results section. POCT-GLUCOSE METER Routine 04/06/2019 5:17 Resul ts for this PM [employer] procedure are i n the results section. BASIC METABOLIC PANEL Routine 04/06/2019 4:40 Re sults for this (7) PM [employer] procedure are i n the results section. POCT-GLUCOSE METER Routine 04/06/2019 12:37 Resul ts for this PM [employer] procedure are i n the results section. XR CHEST 1 VIEW Routine 04/06/2019 6:49 Results for this PORTABLE/BEDSIDE AM [employer] procedure a re in the results section. CBC W/PLT COUNT & AUTO Routine 04/06/2019 6:33 R esults for this DIFFERENTIAL AM [employer] procedure are i n the results section. BASIC METABOLIC PANEL Routine 04/06/2019 6:33 Re sults for this (7) AM [employer] procedure are i n the results section. PHOSPHORUS Routine 04/06/2019 6:33 Results for this AM [employer] procedure are i n the results section. MAGNESIUM Routine 04/06/2019 6:33 Results for this AM [employer] procedure are i n the results section. CBC W/PLT COUNT & AUTO Routine 04/06/2019 6:33 R esults for this DIFFERENTIAL AM [employer] procedure are i n the results section. POCT-GLUCOSE METER Routine 04/06/2019 5:15 Resul ts for this AM [employer] procedure are i n the results section. BASIC METABOLIC PANEL Routine 04/05/2019 4:43 Re sults for this (7) PM [employer] procedure are i n the results section. POCT-GLUCOSE METER Routine 04/05/2019 11:21 Resul ts for this AM [employer] procedure are i n the results section. CBC W/PLT COUNT & AUTO Routine 04/05/2019 4:50 R esults for this DIFFERENTIAL AM [employer] procedure are i n the results section. BASIC METABOLIC PANEL Routine 04/05/2019 4:50 Re sults for this (7) AM [employer] procedure are i n the results section. PHOSPHORUS Routine 04/05/2019 4:50 Results for this AM [employer] procedure are i n the results section. MAGNESIUM Routine 04/05/2019 4:50 Results for this AM [employer] procedure are i n the results section. CBC W/PLT COUNT & AUTO Routine 04/05/2019 4:50 R esults for this DIFFERENTIAL AM [employer] procedure are i n the results section. XR CHEST 1 VIEW Routine 04/05/2019 1:58 Results for this PORTABLE/BEDSIDE AM [employer] procedure a re in the results section. POCT-GLUCOSE METER Routine 04/04/2019 11:42 Resul ts for this PM [employer] procedure are i n the results section. POCT-GLUCOSE METER Routine 04/04/2019 5:43 Resul ts for this PM [employer] procedure are i n the results section. BASIC METABOLIC PANEL Routine 04/04/2019 4:28 Re sults for this (7) PM [employer] procedure are i n the results section. XR ABDOMEN / KUB 1 STAT 04/04/2019 3:58 Resul ts for this VIEW PM [employer] procedure are i n the results section. XR ABDOMEN / KUB 1 STAT 04/04/2019 3:39 Resul ts for this VIEW PM [employer] procedure are i n the results section. POCT-GLUCOSE METER Routine 04/04/2019 12:09 Resul ts for this PM [employer] procedure are i n the results section. XR CHEST 1 VIEW STAT 04/04/2019 8:30 Results for this PORTABLE/BEDSIDE AM [employer] procedure a re in the results section. POCT-GLUCOSE METER Routine 04/04/2019 5:29 Resul ts for this AM [employer] procedure are i n the results section. CBC W/PLT COUNT & AUTO Routine 04/04/2019 4:42 R esults for this DIFFERENTIAL AM [employer] procedure are i n the results section. BASIC METABOLIC PANEL Routine 04/04/2019 4:42 Re sults for this (7) AM [employer] procedure are i n the results section. PHOSPHORUS Routine 04/04/2019 4:42 Results for this AM [employer] procedure are i n the results section. MAGNESIUM Routine 04/04/2019 4:42 Results for this AM [employer] procedure are i n the results section. CBC W/PLT COUNT & AUTO Routine 04/04/2019 4:42 R esults for this DIFFERENTIAL AM [employer] procedure are i n the results section. POCT-GLUCOSE METER Routine 04/03/2019 11:54 Resul ts for this PM [employer] procedure are i n the results section. POCT-GLUCOSE METER Routine 04/03/2019 5:02 Resul ts for this PM [employer] procedure are i n the results section. MAGNESIUM Add-On 04/03/2019 3:27 Results for this PM [employer] procedure are i n the results section. BASIC METABOLIC PANEL Routine 04/03/2019 3:27 Re sults for this (7) PM [employer] procedure are i n the results section. POCT-GLUCOSE METER Routine 04/03/2019 12:07 Resul ts for this PM [employer] procedure are i n the results section. POCT-GLUCOSE METER Routine 04/03/2019 5:53 Resul ts for this AM [employer] procedure are i n the results section. XR CHEST 1 VIEW CHRISSIE 04/03/2019 5:14 Results for this PORTABLE/BEDSIDE AM [employer] procedure a re in the results section. CBC W/PLT COUNT & AUTO Routine 04/03/2019 2:13 R esults for this DIFFERENTIAL AM [employer] procedure are i n the results section. BASIC METABOLIC PANEL Routine 04/03/2019 2:13 Re sults for this (7) AM [employer] procedure are i n the results section. PHOSPHORUS Routine 04/03/2019 2:13 Results for this AM [employer] procedure are i n the results section. MAGNESIUM Routine 04/03/2019 2:13 Results for this AM [employer] procedure are i n the results section. CBC W/PLT COUNT & AUTO Routine 04/03/2019 2:13 R esults for this DIFFERENTIAL AM [employer] procedure are i n the results section. POCT-GLUCOSE METER Routine 04/02/2019 11:54 Resul ts for this PM [employer] procedure are i n the results section. APTT Routine 04/02/2019 10:44 Results for this PM [employer] procedure are i n the results section. POCT-GLUCOSE METER Routine 04/02/2019 5:26 Resul ts for this PM [employer] procedure are i n the results section. APTT Routine 04/02/2019 4:42 Results for this PM [employer] procedure are i n the results section. BASIC METABOLIC PANEL Routine 04/02/2019 4:42 Re sults for this (7) [employer] procedure are i n the results section. POCT-GLUCOSE METER Routine 04/02/2019 12:20 Resul ts for this PM [employer] procedure are i n the results section. APTT Routine 04/02/2019 8:12 Results for this AM [employer] procedure are i n the results section. XR CHEST 1 VIEW Routine 04/02/2019 6:02 Results for this PORTABLE/BEDSIDE AM [employer] procedure a re in the results section. POCT-GLUCOSE METER Routine 04/02/2019 5:34 Resul ts for this AM [employer] procedure are i n the results section. APTT Routine 04/02/2019 1:20 Results for this AM [employer] procedure are i n the results section. BLOOD GAS, ARTERIAL Routine 04/02/2019 1:19 Resu lts for this AM [employer] procedure are i n the results section. CBC W/PLT COUNT & AUTO Routine 04/02/2019 1:18 R esults for this DIFFERENTIAL [employer] procedure are i n the results section. BASIC METABOLIC PANEL Routine 04/02/2019 1:18 Re sults for this (7) AM [employer] procedure are i n the results section. PHOSPHORUS Routine 04/02/2019 1:18 Results for this AM [employer] procedure are i n the results section. MAGNESIUM Routine 04/02/2019 1:18 Results for this AM [employer] procedure are i n the results section. CBC W/PLT COUNT & AUTO Routine 04/02/2019 1:18 R esults for this DIFFERENTIAL [employer] procedure are i n the results section. POCT-GLUCOSE METER Routine 04/01/2019 11:48 Resul ts for this PM [employer] procedure are i n the results section. BASIC METABOLIC PANEL Routine 04/01/2019 7:06 Re sults for this (7) [employer] procedure are i n the results section. APTT Routine 04/01/2019 6:47 Results for this PM [employer] procedure are i n the results section. POCT-GLUCOSE METER Routine 04/01/2019 5:51 Resul ts for this PM [employer] procedure are i n the results section. POCT-GLUCOSE METER Routine 04/01/2019 11:41 Resul ts for this AM [employer] procedure are i n the results section. APTT Routine 04/01/2019 11:07 Results for this AM [employer] procedure are i n the results section. POCT-GLUCOSE METER Routine 04/01/2019 6:26 Resul ts for this AM [employer] procedure are i n the results section. XR CHEST 1 VIEW Routine 04/01/2019 5:07 Results for this PORTABLE/BEDSIDE AM [employer] procedure a re in the results section. BLOOD GAS, ARTERIAL Routine 04/01/2019 3:25 Resu lts for this AM [employer] procedure are i n the results section. CBC W/PLT COUNT & AUTO Routine 04/01/2019 3:23 R esults for this DIFFERENTIAL [employer] procedure are i n the results section. APTT Routine 04/01/2019 3:23 Results for this AM [employer] procedure are i n the results section. BASIC METABOLIC PANEL Routine 04/01/2019 3:23 Re sults for this (7) AM [employer] procedure are i n the results section. PHOSPHORUS Routine 04/01/2019 3:23 Results for this AM [employer] procedure are i n the results section. MAGNESIUM Routine 04/01/2019 3:23 Results for this AM [employer] procedure are i n the results section. CBC W/PLT COUNT & AUTO Routine 04/01/2019 3:23 R esults for this DIFFERENTIAL AM [employer] procedure are i n the results section. POCT-GLUCOSE METER Routine 03/31/2019 11:51 Resul ts for this PM [employer] procedure are i n the results section. APTT Routine 03/31/2019 10:13 Results for this [employer] procedure are i n the results section. APTT Routine 03/31/2019 7:52 Results for this PM [employer] procedure are i n the results section. POCT-GLUCOSE METER Routine 03/31/2019 6:08 Resul ts for this PM [employer] procedure are i n the results section. APTT Routine 03/31/2019 1:59 Results for this PM [employer] procedure are i n the results section. BASIC METABOLIC PANEL Routine 03/31/2019 1:59 Re sults for this (7) PM [employer] procedure are i n the results section. LACTIC ACID, VENOUS Routine 03/31/2019 1:59 Resu lts for this PM [employer] procedure are i n the results section. PHOSPHORUS STAT 03/31/2019 1:59 Results for this PM [employer] procedure are i n the results section. MAGNESIUM STAT 03/31/2019 1:59 Results for this PM [employer] procedure are i n the results section. PT/APTT STAT 03/31/2019 1:59 Results for this PM [employer] procedure are i n the results section. COMPREHENSIVE STAT 03/31/2019 1:59 Results fo r this METABOLIC PANEL PM [employer] procedure ar e in the results section. TROPONIN I STAT 03/31/2019 1:59 Results for this PM [employer] procedure are i n the results section. POCT-GLUCOSE METER Routine 03/31/2019 11:50 Resul ts for this AM [employer] procedure are i n the results section. XR ABDOMEN / KUB 1 STAT 03/31/2019 11:33 Resul ts for this VIEW [employer] procedure are i n the results section. TROPONIN I Routine 03/31/2019 9:12 Results for this AM [employer] procedure are i n the results section. APTT Routine 03/31/2019 6:42 Results for this AM [employer] procedure are i n the results section. BLOOD GAS, ARTERIAL Routine 03/31/2019 6:42 Resu lts for this AM [employer] procedure are i n the results section. POCT-GLUCOSE METER Routine 03/31/2019 5:40 Resul ts for this AM [employer] procedure are i n the results section. XR CHEST 1 VIEW Routine 03/31/2019 5:29 Results for this PORTABLE/BEDSIDE AM [employer] procedure a re in the results section. APTT Routine 03/31/2019 4:20 Results for this AM [employer] procedure are i n the results section. BLOOD GAS, ARTERIAL Routine 03/31/2019 3:52 Resu lts for this AM [employer] procedure are i n the results section. CBC W/PLT COUNT & AUTO Routine 03/31/2019 3:51 R esults for this DIFFERENTIAL AM [employer] procedure are i n the results section. BASIC METABOLIC PANEL Routine 03/31/2019 3:51 Re sults for this (7) AM [employer] procedure are i n the results section. PHOSPHORUS Routine 03/31/2019 3:51 Results for this AM [employer] procedure are i n the results section. MAGNESIUM Routine 03/31/2019 3:51 Results for this AM [employer] procedure are i n the results section. CBC W/PLT COUNT & AUTO Routine 03/31/2019 3:51 R esults for this DIFFERENTIAL AM [employer] procedure are i n the results section. LACTIC ACID, VENOUS STAT 03/31/2019 3:51 Resu lts for this AM [employer] procedure are i n the results section. TROPONIN I Routine 03/31/2019 1:30 Results for this AM [employer] procedure are i n the results section. LACTIC ACID, VENOUS Routine 03/31/2019 1:30 Resu lts for this AM [employer] procedure are i n the results section. B-TYPE NATRIURETIC STAT 03/31/2019 1:30 Resul ts for this FACTOR (BNP) AM [employer] procedure are i n the results section. POCT-GLUCOSE METER Routine 03/31/2019 12:17 Resul ts for this AM [employer] procedure are i n the results section. CT BRAIN WITHOUT IV Routine 03/30/2019 11:54 Resu lts for this CONTRAST PM [employer] procedure are i n the results section. CT CHEST PE TEST Routine 03/30/2019 11:54 Results for this DESIGN [employer] procedure are i n the results section. POCT-HEMOGLOBIN Routine 03/30/2019 8:53 Results for this PM [employer] procedure are i n the results section. POCT-HEMATOCRIT Routine 03/30/2019 8:53 Results for this PM [employer] procedure are i n the results section. POCT-CALCIUM IONIZED Routine 03/30/2019 8:53 Res ults for this PM [employer] procedure are i n the results section. POCT-GLUCOSE Routine 03/30/2019 8:53 Results for this PM [employer] procedure are i n the results section. POCT-POTASSIUM Routine 03/30/2019 8:53 Results f or this PM [employer] procedure are i n the results section. POCT-SODIUM Routine 03/30/2019 8:53 Results for this PM [employer] procedure are i n the results section. POCT-BLOOD GASES, Routine 03/30/2019 8:53 Result s for this ARTERIAL PM [employer] procedure are i n the results section. CBC W/PLT COUNT & AUTO STAT 03/30/2019 8:44 R esults for this DIFFERENTIAL PM [employer] procedure are i n the results section. LACTIC ACID, VENOUS Routine 03/30/2019 8:44 Resu lts for this PM [employer] procedure are i n the results section. PHOSPHORUS STAT 03/30/2019 8:44 Results for this PM [employer] procedure are i n the results section. MAGNESIUM STAT 03/30/2019 8:44 Results for this PM [employer] procedure are i n the results section. TROPONIN I STAT 03/30/2019 8:44 Results for this PM [employer] procedure are i n the results section. COMPREHENSIVE STAT 03/30/2019 8:44 Results fo r this METABOLIC PANEL [employer] procedure ar e in the results section. CBC W/PLT COUNT & AUTO STAT 03/30/2019 8:44 R esults for this DIFFERENTIAL PM [employer] procedure are i n the results section. XR CHEST 1 VIEW STAT 03/30/2019 8:34 Results for this PORTABLE/BEDSIDE PM [employer] procedure a re in the results section. APTT Routine 03/30/2019 5:57 Results for this PM [employer] procedure are i n the results section. POCT-GLUCOSE METER Routine 03/30/2019 5:54 Resul ts for this PM [employer] procedure are i n the results section. BASIC METABOLIC PANEL Routine 03/30/2019 3:46 Re sults for this (7) [employer] procedure are i n the results section. APTT Routine 03/30/2019 12:08 Results for this PM [employer] procedure are i n the results section. POCT-GLUCOSE METER Routine 03/30/2019 11:49 Resul ts for this AM [employer] procedure are i n the results section. XR CHEST 1 VIEW Routine 03/30/2019 7:47 Results for this PORTABLE/BEDSIDE AM [employer] procedure a re in the results section. APTT Routine 03/30/2019 6:32 Results for this AM [employer] procedure are i n the results section. POCT-GLUCOSE METER Routine 03/30/2019 5:55 Resul ts for this AM [employer] procedure are i n the results section. CBC W/PLT COUNT & AUTO Routine 03/30/2019 4:31 R esults for this DIFFERENTIAL [employer] procedure are i n the results section. APTT Routine 03/30/2019 4:31 Results for this AM [employer] procedure are i n the results section. BASIC METABOLIC PANEL Routine 03/30/2019 4:31 Re sults for this (7) [employer] procedure are i n the results section. PHOSPHORUS Routine 03/30/2019 4:31 Results for this AM [employer] procedure are i n the results section. MAGNESIUM Routine 03/30/2019 4:31 Results for this AM [employer] procedure are i n the results section. CBC W/PLT COUNT & AUTO Routine 03/30/2019 4:31 R esults for this DIFFERENTIAL AM [employer] procedure are i n the results section. POCT-GLUCOSE METER Routine 03/30/2019 12:16 Resul ts for this AM [employer] procedure are i n the results section. POCT-GLUCOSE METER Routine 03/29/2019 6:14 Resul ts for this PM [employer] procedure are i n the results section. BASIC METABOLIC PANEL Routine 03/29/2019 12:20 Re sults for this (7) [employer] procedure are i n the results section. POCT-GLUCOSE METER Routine 03/29/2019 12:18 Resul ts for this PM [employer] procedure are i n the results section. POCT-GLUCOSE METER Routine 03/29/2019 6:00 Resul ts for this AM [employer] procedure are i n the results section. XR CHEST 1 VIEW Routine 03/29/2019 4:42 Results for this PORTABLE/BEDSIDE AM [employer] procedure a re in the results section. APTT Routine 03/29/2019 3:33 Results for this AM [employer] procedure are i n the results section. CBC W/PLT COUNT & AUTO Routine 03/29/2019 3:30 R esults for this DIFFERENTIAL [employer] procedure are i n the results section. BASIC METABOLIC PANEL Routine 03/29/2019 3:30 Re sults for this (7) [employer] procedure are i n the results section. PHOSPHORUS Routine 03/29/2019 3:30 Results for this AM [employer] procedure are i n the results section. MAGNESIUM Routine 03/29/2019 3:30 Results for this [employer] procedure are i n the results section. CBC W/PLT COUNT & AUTO Routine 03/29/2019 3:30 R esults for this DIFFERENTIAL [employer] procedure are i n the results section. POCT-GLUCOSE METER Routine 03/29/2019 12:23 Resul ts for this AM [employer] procedure are i n the results section. APTT Routine 03/28/2019 8:25 Results for this [employer] procedure are i n the results section. VANCOMYCIN LEVEL, Timed 03/28/2019 8:25 Result s for this TROUGH [employer] procedure are i n the results section. POCT-GLUCOSE METER Routine 03/28/2019 5:33 Resul ts for this [employer] procedure are i n the results section. BASIC METABOLIC PANEL Routine 03/28/2019 4:03 Re sults for this (7) [employer] procedure are i n the results section. APTT Routine 03/28/2019 2:03 Results for this [employer] procedure are i n the results section. POCT-GLUCOSE METER Routine 03/28/2019 12:26 Resul ts for this [employer] procedure are i n the results section. CYTOLOGY AP Routine 03/28/2019 8:03 Results for this [employer] procedure are i n the results section. APTT Routine 03/28/2019 6:30 Results for this [employer] procedure are i n the results section. CBC W/PLT COUNT & AUTO Routine 03/28/2019 4:21 R esults for this DIFFERENTIAL [employer] procedure are i n the results section. APTT Routine 03/28/2019 4:21 Results for this [employer] procedure are i n the results section. BASIC METABOLIC PANEL Routine 03/28/2019 4:21 Re sults for this (7) [employer] procedure are i n the results section. PHOSPHORUS Routine 03/28/2019 4:21 Results for this [employer] procedure are i n the results section. MAGNESIUM Routine 03/28/2019 4:21 Results for this [employer] procedure are i n the results section. CBC W/PLT COUNT & AUTO Routine 03/28/2019 4:21 R esults for this DIFFERENTIAL [employer] procedure are i n the results section. XR CHEST 1 VIEW Routine 03/28/2019 3:24 Results for this PORTABLE/BEDSIDE [employer] procedure a re in the results section. POCT-GLUCOSE METER Routine 03/28/2019 12:13 Resul ts for this [employer] procedure are i n the results section. POCT-GLUCOSE METER Routine 03/27/2019 5:40 Resul ts for this [employer] procedure are i n the results section. BASIC METABOLIC PANEL Routine 03/27/2019 4:05 Re sults for this (7) [employer] procedure are i n the results section. APTT Routine 03/27/2019 12:05 Results for this [employer] procedure are i n the results section. POCT-GLUCOSE METER Routine 03/27/2019 11:31 Resul ts for this [employer] procedure are i n the results section. APTT Routine 03/27/2019 5:34 Results for this [employer] procedure are i n the results section. POCT-GLUCOSE METER Routine 03/27/2019 5:05 Resul ts for this [employer] procedure are i n the results section. CBC W/PLT COUNT & AUTO Routine 03/27/2019 4:32 R esults for this DIFFERENTIAL [employer] procedure are i n the results section. BASIC METABOLIC PANEL Routine 03/27/2019 4:32 Re sults for this (7) [employer] procedure are i n the results section. PHOSPHORUS Routine 03/27/2019 4:32 Results for this [employer] procedure are i n the results section. MAGNESIUM Routine 03/27/2019 4:32 Results for this [employer] procedure are i n the results section. CBC W/PLT COUNT & AUTO Routine 03/27/2019 4:32 R esults for this DIFFERENTIAL [employer] procedure are i n the results section. XR CHEST 1 VIEW Routine 03/27/2019 3:54 Results for this PORTABLE/BEDSIDE [employer] procedure a re in the results section. ECHOCARDIOGRAM REPORT 03/26/2019 9:11 - SCAN [employer] APTT Routine 03/26/2019 8:13 Results for this [employer] procedure are i n the results section. IR DRAINAGE CATHETER CHRISSIE 03/26/2019 7:30 Res ults for this CHANGE [employer] procedure are i n the results section. POCT-GLUCOSE METER Routine 03/26/2019 6:20 Resul ts for this [employer] procedure are i n the results section. BASIC METABOLIC PANEL Routine 03/26/2019 5:33 Re sults for this (7) [employer] procedure are i n the results section. APTT Routine 03/26/2019 12:53 Results for this [employer] procedure are i n the results section. POCT-GLUCOSE METER Routine 03/26/2019 11:54 Resul ts for this [employer] procedure are i n the results section. APTT Routine 03/26/2019 10:27 Results for this [employer] procedure are i n the results section. POCT-GLUCOSE METER Routine 03/26/2019 6:42 Resul ts for this [employer] procedure are i n the results section. XR CHEST 1 VIEW Routine 03/26/2019 3:58 Results for this PORTABLE/BEDSIDE [employer] procedure a re in the results section. BLOOD GAS, ARTERIAL Routine 03/26/2019 3:08 Resu lts for this AM [employer] procedure are i n the results section. CBC W/PLT COUNT & AUTO Routine 03/26/2019 3:00 R esults for this DIFFERENTIAL [employer] procedure are i n the results section. APTT Routine 03/26/2019 3:00 Results for this [employer] procedure are i n the results section. BASIC METABOLIC PANEL Routine 03/26/2019 3:00 Re sults for this (7) [employer] procedure are i n the results section. PHOSPHORUS Routine 03/26/2019 3:00 Results for this AM [employer] procedure are i n the results section. MAGNESIUM Routine 03/26/2019 3:00 Results for this [employer] procedure are i n the results section. CBC W/PLT COUNT & AUTO Routine 03/26/2019 3:00 R esults for this DIFFERENTIAL [employer] procedure are i n the results section. POCT-GLUCOSE METER Routine 03/26/2019 12:02 Resul ts for this [employer] procedure are i n the results section. BASIC METABOLIC PANEL Routine 03/25/2019 8:05 Re sults for this (7) [employer] procedure are i n the results section. 2D ECHO W/ DOPPLER STAT 03/25/2019 7:04 Resul ts for this (CW/PW/COLOR) [employer] procedure are in the results section. POCT-GLUCOSE METER Routine 03/25/2019 6:10 Resul ts for this [employer] procedure are i n the results section. CT ABDOMEN/PELVIS STAT 03/25/2019 6:00 Result s for this WITHOUT IV CONTRAST [employer] procedur e are in the results section. CT CHEST WITHOUT IV STAT 03/25/2019 6:00 Resu lts for this CONTRAST [employer] procedure are i n the results section. XR CHEST 1 VIEW STAT 03/25/2019 4:10 Results for this PORTABLE/BEDSIDE [employer] procedure a re in the results section. APTT Routine 03/25/2019 3:30 Results for this [employer] procedure are i n the results section. BASIC METABOLIC PANEL Routine 03/25/2019 11:46 Re sults for this (7) [employer] procedure are i n the results section. BLOOD GAS, ARTERIAL Routine 03/25/2019 11:43 Resu lts for this [employer] procedure are i n the results section. POCT-GLUCOSE METER Routine 03/25/2019 11:40 Resul ts for this [employer] procedure are i n the results section. APTT Routine 03/25/2019 9:33 Results for this [employer] procedure are i n the results section. BLOOD CULTURE Routine 03/25/2019 9:32 Results fo r this [employer] procedure are i n the results section. BLOOD CULTURE Routine 03/25/2019 9:32 Results fo r this [employer] procedure are i n the results section. URINALYSIS W/ REFLEX Routine 03/25/2019 9:08 Res ults for this URINE CULTURE [employer] procedure are in the results section. URINE CULTURE Routine 03/25/2019 9:08 Results fo r this [employer] procedure are i n the results section. SPUTUM CULTURE + GRAM Routine 03/25/2019 9:08 Re sults for this STAIN [employer] procedure are i n the results section. ECG 12-LEAD STAT 03/25/2019 8:09 Results for this [employer] procedure are i n the results section. POCT-GLUCOSE METER Routine 03/25/2019 6:06 Resul ts for this [employer] procedure are i n the results section. XR CHEST 1 VIEW Routine 03/25/2019 4:03 Results for this PORTABLE/BEDSIDE [employer] procedure a re in the results section. BASIC METABOLIC PANEL Routine 03/25/2019 3:30 Re sults for this (7) [employer] procedure are i n the results section. PHOSPHORUS Routine 03/25/2019 3:30 Results for this [employer] procedure are i n the results section. MAGNESIUM Routine 03/25/2019 3:30 Results for this [employer] procedure are i n the results section. CBC W/PLT COUNT & AUTO Routine 03/25/2019 3:09 R esults for this DIFFERENTIAL [employer] procedure are i n the results section. APTT Routine 03/25/2019 3:09 Results for this [employer] procedure are i n the results section. CBC W/PLT COUNT & AUTO Routine 03/25/2019 3:09 R esults for this DIFFERENTIAL [employer] procedure are i n the results section. POCT-GLUCOSE METER Routine 03/25/2019 12:01 Resul ts for this [employer] procedure are i n the results section. APTT Routine 03/24/2019 8:31 Results for this [employer] procedure are i n the results section. BASIC METABOLIC PANEL Routine 03/24/2019 8:31 Re sults for this (7) [employer] procedure are i n the results section. POCT-GLUCOSE METER Routine 03/24/2019 6:07 Resul ts for this [employer] procedure are i n the results section. XR ABDOMEN / KUB 1 STAT 03/24/2019 5:12 Resul ts for this VIEW [employer] procedure are i n the results section. XR CHEST 1 VIEW STAT 03/24/2019 5:12 Results for this PORTABLE/BEDSIDE [employer] procedure a re in the results section. APTT Routine 03/24/2019 12:36 Results for this [employer] procedure are i n the results section. BASIC METABOLIC PANEL Routine 03/24/2019 12:36 Re sults for this (7) [employer] procedure are i n the results section. POCT-GLUCOSE METER Routine 03/24/2019 12:17 Resul ts for this [employer] procedure are i n the results section. BLOOD GAS, ARTERIAL Routine 03/24/2019 12:04 Resu lts for this [employer] procedure are i n the results section. EEG EXTENDED STAT 03/24/2019 11:23 Results for this MONITORING 40 - 60 AM [employer] procedure are in MINUTES the results section. POCT-GLUCOSE METER Routine 03/24/2019 5:58 Resul ts for this [employer] procedure are i n the results section. BLOOD GAS, ARTERIAL STAT 03/24/2019 4:29 Resu lts for this AM [employer] procedure are i n the results section. APTT Routine 03/24/2019 4:25 Results for this AM [employer] procedure are i n the results section. CBC W/PLT COUNT & AUTO Routine 03/24/2019 4:10 R esults for this DIFFERENTIAL [employer] procedure are i n the results section. BASIC METABOLIC PANEL Routine 03/24/2019 4:10 Re sults for this (7) AM [employer] procedure are i n the results section. PHOSPHORUS Routine 03/24/2019 4:10 Results for this AM [employer] procedure are i n the results section. MAGNESIUM Routine 03/24/2019 4:10 Results for this AM [employer] procedure are i n the results section. CBC W/PLT COUNT & AUTO Routine 03/24/2019 4:10 R esults for this DIFFERENTIAL [employer] procedure are i n the results section. XR CHEST 1 VIEW Routine 03/24/2019 3:00 Results for this PORTABLE/BEDSIDE AM [employer] procedure a re in the results section. CT BRAIN WITHOUT IV Routine 03/24/2019 1:12 Resu lts for this CONTRAST [employer] procedure are i n the results section. POCT-GLUCOSE METER Routine 03/24/2019 12:05 Resul ts for this AM [employer] procedure are i n the results section. VANCOMYCIN LEVEL, Timed 03/23/2019 11:59 Result s for this TROUGH PM [employer] procedure are i n the results section. BASIC METABOLIC PANEL Routine 03/23/2019 7:44 Re sults for this (7) [employer] procedure are i n the results section. AMMONIA STAT 03/23/2019 3:55 Results for this PM [employer] procedure are i n the results section. HEPATIC FUNCTION PANEL Routine 03/23/2019 3:55 R esults for this PM [employer] procedure are i n the results section. BASIC METABOLIC PANEL Routine 03/23/2019 3:55 Re sults for this (7) [employer] procedure are i n the results section. (CELLAVISION MANUAL Routine 03/23/2019 5:58 Resu lts for this DIFF) AM [employer] procedure are i n the results section. CBC W/PLT COUNT & AUTO Routine 03/23/2019 5:58 R esults for this DIFFERENTIAL [employer] procedure are i n the results section. BLOOD GAS, ARTERIAL Routine 03/23/2019 5:58 Resu lts for this AM [employer] procedure are i n the results section. APTT Routine 03/23/2019 5:58 Results for this AM [employer] procedure are i n the results section. BASIC METABOLIC PANEL Routine 03/23/2019 5:58 Re sults for this (7) [employer] procedure are i n the results section. PHOSPHORUS Routine 03/23/2019 5:58 Results for this AM [employer] procedure are i n the results section. MAGNESIUM Routine 03/23/2019 5:58 Results for this AM [employer] procedure are i n the results section. CBC W/PLT COUNT & AUTO Routine 03/23/2019 5:58 R esults for this DIFFERENTIAL [employer] procedure are i n the results section. POCT-GLUCOSE METER Routine 03/23/2019 5:24 Resul ts for this AM [employer] procedure are i n the results section. POCT-GLUCOSE METER Routine 03/23/2019 12:09 Resul ts for this [employer] procedure are i n the results section. APTT Routine 03/22/2019 11:35 Results for this [employer] procedure are i n the results section. BASIC METABOLIC PANEL Routine 03/22/2019 8:05 Re sults for this (7) [employer] procedure are i n the results section. PT/APTT Routine 03/22/2019 5:15 Results for this [employer] procedure are i n the results section. SPIN/CONCENTRATION Routine 03/22/2019 2:37 Resul ts for this CHARGE [employer] procedure are i n the results section. FUNGUS CULTURE + Routine 03/22/2019 2:37 Results for this SMEAR [employer] procedure are i n the results section. BODY FLUID CELL COUNT Routine 03/22/2019 2:37 Re sults for this WITH DIFFERENTIAL [employer] procedure are in the results section. AFB CULTURE + SMEAR Routine 03/22/2019 2:37 Resu lts for this (NON-SPUTUM) PM [employer] procedure are i n the results section. TRIGLYCERIDES, PLEURAL Routine 03/22/2019 2:36 R esults for this FLUID [employer] procedure are i n the results section. PROTEIN, TOTAL, Routine 03/22/2019 2:36 Results for this PLEURAL FLUID [employer] procedure are in the results section. PH, BODY FLUID Routine 03/22/2019 2:36 Results f or this PM [employer] procedure are i n the results section. LACTATE DEHYDROGENASE Routine 03/22/2019 2:36 Re sults for this (LD), PLEURAL FLUID [employer] procedur e are in the results section. GLUCOSE PLEURAL FLUID Routine 03/22/2019 2:36 Re sults for this [employer] procedure are i n the results section. BODY FLUID CULTURE + Routine 03/22/2019 2:36 Res ults for this GRAM STAIN [employer] procedure are i n the results section. ADENOSINE DEAMINASE, Routine 03/22/2019 2:36 Res ults for this FLUID [employer] procedure are i n the results section. TRIGLYCERIDES, PLEURAL Routine 03/22/2019 2:35 R esults for this FLUID [employer] procedure are i n the results section. PH, BODY FLUID Routine 03/22/2019 2:35 Results f or this PM [employer] procedure are i n the results section. PROTEIN, TOTAL, Routine 03/22/2019 2:35 Results for this PLEURAL FLUID [employer] procedure are in the results section. LACTATE DEHYDROGENASE Routine 03/22/2019 2:35 Re sults for this (LD), PLEURAL FLUID [employer] procedur e are in the results section. GLUCOSE PLEURAL FLUID Routine 03/22/2019 2:35 Re sults for this PM [employer] procedure are i n the results section. FUNGUS CULTURE + Routine 03/22/2019 2:35 Results for this SMEAR [employer] procedure are i n the results section. BODY FLUID CULTURE + Routine 03/22/2019 2:35 Res ults for this GRAM STAIN [employer] procedure are i n the results section. BODY FLUID CELL COUNT Routine 03/22/2019 2:35 Re sults for this WITH DIFFERENTIAL [employer] procedure are in the results section. ALBUMIN PLEURAL FLUID Routine 03/22/2019 2:35 Re sults for this [employer] procedure are i n the results section. AFB CULTURE + SMEAR Routine 03/22/2019 2:35 Resu lts for this (NON-SPUTUM) PM [employer] procedure are i n the results section. ADENOSINE DEAMINASE, Routine 03/22/2019 2:35 Res ults for this FLUID [employer] procedure are i n the results section. SPIN/CONCENTRATION Routine 03/22/2019 2:32 Resul ts for this CHARGE [employer] procedure are i n the results section. SPIN/CONCENTRATION Routine 03/22/2019 2:32 Resul ts for this CHARGE [employer] procedure are i n the results section. AFB CULTURE + SMEAR CHRISSIE 03/22/2019 2:32 Resu lts for this (NON-SPUTUM) PM [employer] procedure are i n the results section. LEGIONELLA CULTURE Routine 03/22/2019 2:32 Resul ts for this PM [employer] procedure are i n the results section. FUNGUS CULTURE + CHRISSIE 03/22/2019 2:32 Results for this SMEAR [employer] procedure are i n the results section. BRONCHIAL CULTURE + CHRISSIE 03/22/2019 2:32 Resu lts for this GRAM STAIN [employer] procedure are i n the results section. FUNGUS CULTURE + Routine 03/22/2019 2:32 Results for this SMEAR [employer] procedure are i n the results section. AFB CULTURE + SMEAR Routine 03/22/2019 2:32 Resu lts for this (NON-SPUTUM) PM [employer] procedure are i n the results section. BRONCHIAL CULTURE + Routine 03/22/2019 2:32 Resu lts for this GRAM STAIN [employer] procedure are i n the results section. APTT Routine 03/22/2019 9:35 Results for this AM [employer] procedure are i n the results section. BASIC METABOLIC PANEL Routine 03/22/2019 9:35 Re sults for this (7) [employer] procedure are i n the results section. BLOOD CULTURE Routine 03/22/2019 9:35 Results fo r this AM [employer] procedure are i n the results section. BLOOD CULTURE Routine 03/22/2019 9:35 Results fo r this AM [employer] procedure are i n the results section. XR CHEST 1 VIEW Routine 03/22/2019 8:09 Results for this PORTABLE/BEDSIDE [employer] procedure a re in the results section. POCT-GLUCOSE METER Routine 03/22/2019 5:53 Resul ts for this AM [employer] procedure are i n the results section. CBC W/PLT COUNT & AUTO Routine 03/22/2019 1:58 R esults for this DIFFERENTIAL [employer] procedure are i n the results section. BASIC METABOLIC PANEL Routine 03/22/2019 1:58 Re sults for this (7) [employer] procedure are i n the results section. PHOSPHORUS Routine 03/22/2019 1:58 Results for this AM [employer] procedure are i n the results section. CBC W/PLT COUNT & AUTO Routine 03/22/2019 1:58 R esults for this DIFFERENTIAL [employer] procedure are i n the results section. MAGNESIUM STAT 03/22/2019 1:58 Results for this AM [employer] procedure are i n the results section. VANCOMYCIN LEVEL, Routine 03/22/2019 1:58 Result s for this TROUGH [employer] procedure are i n the results section. POCT-GLUCOSE METER Routine 03/22/2019 12:30 Resul ts for this AM [employer] procedure are i n the results section. BASIC METABOLIC PANEL Routine 03/21/2019 9:52 Re sults for this (7) [employer] procedure are i n the results section. TRANSFUSION SERVICE 03/21/2019 9:06 REPORT - SCAN [employer] BODY FLUID CULTURE + Routine 03/21/2019 7:34 Res ults for this GRAM STAIN [employer] procedure are i n the results section. TRIGLYCERIDES, PLEURAL Routine 03/21/2019 7:10 R esults for this FLUID [employer] procedure are i n the results section. PROTEIN, TOTAL, Routine 03/21/2019 7:10 Results for this PLEURAL FLUID [employer] procedure are in the results section. PH, BODY FLUID Routine 03/21/2019 7:10 Results f or this PM [employer] procedure are i n the results section. FUNGUS CULTURE + Routine 03/21/2019 7:10 Results for this SMEAR [employer] procedure are i n the results section. BODY FLUID CELL COUNT Routine 03/21/2019 7:10 Re sults for this WITH DIFFERENTIAL [employer] procedure are in the results section. LACTATE DEHYDROGENASE Routine 03/21/2019 7:09 Re sults for this (LD), PLEURAL FLUID [employer] procedur e are in the results section. GLUCOSE PLEURAL FLUID Routine 03/21/2019 7:09 Re sults for this [employer] procedure are i n the results section. ALBUMIN PLEURAL FLUID Routine 03/21/2019 7:09 Re sults for this [employer] procedure are i n the results section. US DRAINAGE CHEST WITH STAT 03/21/2019 6:25 R esults for this TUBE INSERTION [employer] procedure are in the results section. RETICULOCYTE COUNT Routine 03/21/2019 8:50 Resul ts for this AM [employer] procedure are i n the results section. RESPIRATORY PANEL SLHS Routine 03/21/2019 8:50 R esults for this AM [employer] procedure are i n the results section. RAPID INFLUENZA A&B STAT 03/21/2019 8:50 Resu lts for this SCREEN [employer] procedure are i n the results section. MRSA SCREEN STAT 03/21/2019 8:50 Results for this [employer] procedure are i n the results section. MAGNESIUM Add-On 03/21/2019 8:49 Results for this [employer] procedure are i n the results section. BASIC METABOLIC PANEL Routine 03/21/2019 8:49 Re sults for this (7) [employer] procedure are i n the results section. VITAMIN B12 AND FOLATE Routine 03/21/2019 8:49 R esults for this AM [employer] procedure are i n the results section. LACTATE DEHYDROGENASE Routine 03/21/2019 8:49 Re sults for this (LDH) [employer] procedure are i n the results section. IRON, TIBC, % SAT. Routine 03/21/2019 8:49 Resul ts for this (WITHOUT FERRITIN) [employer] procedure are in the results section. FERRITIN Routine 03/21/2019 8:49 Results for this AM [employer] procedure are i n the results section. POCT-GLUCOSE METER Routine 03/21/2019 5:34 Resul ts for this [employer] procedure are i n the results section. US ABDOMEN LIMITED Routine 03/21/2019 3:55 Resul ts for this [employer] procedure are i n the results section. (CELLAVISION MANUAL Routine 03/21/2019 2:03 Resu lts for this DIFF) AM [employer] procedure are i n the results section. CBC W/PLT COUNT & AUTO Routine 03/21/2019 2:03 R esults for this DIFFERENTIAL [employer] procedure are i n the results section. PHOSPHORUS Routine 03/21/2019 2:03 Results for this [employer] procedure are i n the results section. MAGNESIUM Routine 03/21/2019 2:03 Results for this [employer] procedure are i n the results section. CBC W/PLT COUNT & AUTO Routine 03/21/2019 2:03 R esults for this DIFFERENTIAL [employer] procedure are i n the results section. MAGNESIUM STAT Add-on 03/21/2019 12:18 Results for this [employer] procedure are i n the results section. BASIC METABOLIC PANEL Routine 03/21/2019 12:18 Re sults for this (7) [employer] procedure are i n the results section. POCT-GLUCOSE METER Routine 03/20/2019 11:46 Resul ts for this PM [employer] procedure are i n the results section. ECHOCARDIOGRAM REPORT 03/20/2019 9:22 - SCAN [employer] POCT-GLUCOSE METER Routine 03/20/2019 6:11 Resul ts for this [employer] procedure are i n the results section. BLOOD GAS, ARTERIAL STAT 03/20/2019 4:34 Resu lts for this [employer] procedure are i n the results section. MAGNESIUM STAT Add-on 03/20/2019 4:33 Results for this [employer] procedure are i n the results section. BASIC METABOLIC PANEL Routine 03/20/2019 4:33 Re sults for this (7) [employer] procedure are i n the results section. VANCOMYCIN LEVEL, STAT 03/20/2019 12:58 Result s for this TROUGH [employer] procedure are i n the results section. ECG 12-LEAD Routine 03/20/2019 12:42 PM [employer] Procedure Note - Interface, External Ris In - 03/20/2019 1:04 PM [employer] Ventricular Rate 95 BPM Atrial Rate 326 BPM QRS Duration 106 ms Q-T Interval 362 ms QTC Calculation(Bazett) 454 ms R Butler 15 degrees T Butler 134 degrees Atrial fibrillation Minimal voltage criteria for LVH, may be normal variant Nonspecific ST and T wave ab normality , probably digitalis effect Abnormal ECG When compared with ECG of 00:28, T wave inversion no longer e vident in Anterior leads ECG 12-LEAD Routine 03/20/2019 12:42 PM [employer] Resu lts for this procedure are i n the results section . POCT-GLUCOSE METER Routine 03/20/2019 12:14 [employer] Results for this procedure are i n the results section . 2D ECHO W/ DOPPLER STAT 03/20/2019 11:05 [employer] Results for this (CW/PW/COLOR) procedure are in the results section . CT CHEST WITHOUT IV STAT 03/20/2019 10:45 AM [employer] Results for this CONTRAST procedure are i n the results section . SPUTUM CULTURE + GRAM STAIN Routine 03/20/2019 6:31 AM [employer] Results for this procedure are i n the results section . TROPONIN I Routine 03/20/2019 5:49 AM [employer] Resu lts for this procedure are i n the results section . ABORH, MANUAL STAT 03/20/2019 5:48 AM [employer] Res ults for this procedure are i n the results section . POCT-GLUCOSE METER Routine 03/20/2019 5:44 AM [employer] Results for this procedure are i n the results section . XR CHEST 1 VIEW STAT 03/20/2019 4:05 AM [employer] R esults for this PORTABLE/BEDSIDE procedure a re in the results section . BLOOD GAS, ARTERIAL STAT 03/20/2019 3:14 AM [employer] Results for this procedure are i n the results section . BLOOD CULTURE Routine 03/20/2019 3:08 AM [employer] Res ults for this procedure are i n the results section . BLOOD CULTURE Routine 03/20/2019 3:08 [employer] Res ults for this procedure are i n the results section . TYPE AND SCREEN, AUTOMATED STAT 03/20/2019 3:00 [employer] Results for this procedure are i n the results section . FIBRINOGEN STAT 03/20/2019 3:00 [employer] Resu lts for this procedure are i n the results section . LACTIC ACID, VENOUS STAT 03/20/2019 3:00 [employer] Results for this procedure are i n the results section . PT/APTT Routine 03/20/2019 3:00 AM [employer] Resu lts for this procedure are i n the results section . PROTHROMBIN TIME/INR Routine 03/20/2019 3:00 [employer] Results for this procedure are i n the results section . TSH/FREE T4 IF INDICATED Routine 03/20/2019 3:00 [employer] Results for this procedure are i n the results section . HEMOGLOBIN A1C Routine 03/20/2019 3:00 AM [employer] Re sults for this procedure are i n the results section . B-TYPE NATRIURETIC FACTOR STAT 03/20/2019 3:00 AM [employer] Results for this (BNP) procedure are i n the results section . VANCOMYCIN LEVEL, RANDOM Routine 03/20/2019 3:00 AM [employer] Results for this procedure are i n the results section . CBC W/PLT COUNT & AUTO Routine 03/20/2019 2:59 AM [employer] Results for this DIFFERENTIAL procedure are i n the results section . CBC W/PLT COUNT & AUTO Routine 03/20/2019 2:59 AM [employer] Results for this DIFFERENTIAL procedure are i n the results section . LIPID PANEL Routine 03/20/2019 2:59 AM [employer] Resu lts for this procedure are i n the results section . TROPONIN I Routine 03/20/2019 2:59 AM [employer] Resu lts for this procedure are i n the results section . PHOSPHORUS STAT 03/20/2019 2:59 AM [employer] Resu lts for this procedure are i n the results section . MAGNESIUM STAT 03/20/2019 2:59 AM [employer] Resu lts for this procedure are i n the results section . HEPATIC FUNCTION PANEL STAT 03/20/2019 2:59 AM [employer] Results for this procedure are i n the results section . BASIC METABOLIC PANEL (7) STAT 03/20/2019 2:59 AM [employer] Results for this procedure are i n the results section . LEGIONELLA URINE ANTIGEN Routine 03/20/2019 2:23 AM [employer] Results for this procedure are i n the results section . STREP PNEUMONIAE ANTIGEN Routine 03/20/2019 2:23 AM [employer] Results for this procedure are i n the results section . URINALYSIS W/ REFLEX URINE Routine 03/20/2019 2:22 AM [employer] Results for this CULTURE procedure are i n the results section . OSMOLALITY, URINE Routine 03/20/2019 2:22 AM [employer] Results for this procedure are i n the results section . PROTEIN, RANDOM URINE Routine 03/20/2019 2:22 AM [employer] Results for this procedure are i n the results section . UREA NITROGEN, RANDOM URINE Routine 03/20/2019 2:22 AM [employer] Results for this procedure are i n the results section . CREATININE, RANDOM URINE Routine 03/20/2019 2:22 AM [employer] Results for this procedure are i n the results section . CHLORIDE, RANDOM URINE Routine 03/20/2019 2:22 AM [employer] Results for this procedure are i n the results section . SODIUM, RANDOM URINE Routine 03/20/2019 2:22 AM [employer] Results for this procedure are i n the results section . URINE CULTURE Routine 03/20/2019 2:22 AM [employer] Res ults for this procedure are i n the results section . POCT-GLUCOSE METER Routine 03/20/2019 12:39 [employer] Results for this procedure are i n the results section . ECG 12-LEAD Routine 03/20/2019 12:28 [employer] Procedure Note - Interface, External Ris In - 03/20/2019 1:55 [employer] Ventricular Rate 125 BPM Atrial Rate 129 BPM QRS Duration 106 ms Q-T Interval 356 ms QTC Calculation(Bazett) 513 ms R Butler 15 degrees T Butler 168 degrees Atrial fibrillation with rap id ventricular response with premature ventricular or aberrantly conducted complexes ST & T wave abnormality, con back tufter anterolateral ischemia or digitalis effect Abnormal ECG When compared with ECG of 09:00, ST now depressed in Anterior leads Nonspecific T wave abnormali ty has replaced inverted T waves in Inferior leads T wave inversion now evident in Anterior leads ECG 12-LEAD Routine 03/20/2019 12:28 AM [employer] Resu lts for this procedure are i n the results section . REPORT OF PROCEDURE - 01/28/2019 1:40 PM [employer] ENDOSCOPY SCAN RHYTHM STRIP - SCAN 01/28/2019 1:40 PM [employer] CBC W/PLT COUNT & AUTO Routine 01/24/2019 4:31 AM [employer] Results for this DIFFERENTIAL procedure are i n the results section . PHOSPHORUS STAT Add-on 01/24/2019 4:31 AM [employer] Resu lts for this procedure are i n the results section . MAGNESIUM STAT Add-on 01/24/2019 4:31 AM [employer] Resu lts for this procedure are i n the results section . BASIC METABOLIC PANEL (7) Routine 01/24/2019 4:31 AM [employer] Results for this procedure are i n the results section . CBC W/PLT COUNT & AUTO Routine 01/24/2019 4:31 AM [employer] Results for this DIFFERENTIAL procedure are i n the results section . TROPONIN I STAT 01/23/2019 9:59 PM [employer] Resu lts for this procedure are i n the results section . ECHOCARDIOGRAM REPORT - 01/23/2019 9:21 PM [employer] SCAN TROPONIN I STAT 01/23/2019 4:02 PM [employer] Resu lts for this procedure are i n the results section . B-TYPE NATRIURETIC FACTOR STAT 01/23/2019 10:13 AM [employer] Results for this (BNP) procedure are i n the results section . TROPONIN I STAT 01/23/2019 10:13 AM [employer] Resu lts for this procedure are i n the results section . TSH/FREE T4 IF INDICATED CHRISSIE 01/23/2019 10:13 AM [employer] Results for this procedure are i n the results section . ECG 12-LEAD STAT 01/23/2019 9:00 AM [employer] Resu lts for this procedure are i n the results section . MRA HEAD WITHOUT IV STAT 01/23/2019 8:01 AM [employer] Results for this CONTRAST procedure are i n the results section . CBC W/PLT COUNT & AUTO Routine 01/23/2019 4:59 AM [employer] Results for this DIFFERENTIAL procedure are i n the results section . MAGNESIUM STAT Add-on 01/23/2019 4:59 AM [employer] Resu lts for this procedure are i n the results section . BASIC METABOLIC PANEL (7) Routine 01/23/2019 4:59 AM [employer] Results for this procedure are i n the results section . CBC W/PLT COUNT & AUTO Routine 01/23/2019 4:59 AM [employer] Results for this DIFFERENTIAL procedure are i n the results section . POTASSIUM Routine 01/22/2019 7:43 PM [employer] Resu lts for this procedure are i n the results section . MR BRAIN WITHOUT IV Routine 01/22/2019 6:11 PM [employer] Results for this CONTRAST procedure are i n the results section . CT/CTA CAROTID Routine 01/22/2019 4:59 PM [employer] Re sults for this procedure are i n the results section . CTA BRAIN Routine 01/22/2019 4:59 PM [employer] Resu lts for this procedure are i n the results section . 2D ECHO W/ DOPPLER Routine 01/22/2019 1:16 PM [employer] Results for this (CW/PW/COLOR) procedure are in the results section . MAGNESIUM STAT Add-on 01/22/2019 4:17 AM [employer] Resu lts for this procedure are i n the results section . TROPONIN I Routine 01/22/2019 4:17 AM [employer] Resu lts for this procedure are i n the results section . HEMOGLOBIN A1C Routine 01/22/2019 4:17 AM [employer] Re sults for this procedure are i n the results section . LIPID PANEL Routine 01/22/2019 4:17 AM [employer] Resu lts for this procedure are i n the results section . CBC W/PLT COUNT & AUTO Routine 01/21/2019 11:26 PM [employer] Results for this DIFFERENTIAL procedure are i n the results section . PROTHROMBIN TIME/INR Routine 01/21/2019 11:26 PM [employer] Results for this procedure are i n the results section . 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 RPR Routine 01/21/2019 11:26 PM MARKET GARDEN WORKER Resu lts for this procedure are i n the results section . TSH/FREE T4 IF INDICATED Routine 01/21/2019 11:26 PM MARKET GARDEN WORKER Results for this procedure are i n the results section . TROPONIN I Routine 01/21/2019 11:26 PM MARKET GARDEN WORKER Resu lts for this procedure are i n the results section . CBC W/PLT COUNT & AUTO Routine 01/21/2019 11:26 PM MARKET GARDEN WORKER Results for this DIFFERENTIAL procedure are i n the results section . BASIC METABOLIC PANEL (7) Routine 01/21/2019 11:26 PM MARKET GARDEN WORKER Results for this procedure are i n the results section . XR CHEST 1 VIEW Routine 01/21/2019 11:19 PM MARKET GARDEN WORKER R esults for this PORTABLE/BEDSIDE procedure a re in the results section . after 08/28/2018 Results RHYTHM STRIP - SCAN (07/02/2019 12:50 [...] : TESTED AT 70 - 110 mg/dL [facility] [address] [facility], [id number]: Clinical Research Tech/Boom Cat Operator ID = [id number] for RYAN ECHOLS Specimen Blood Performing Organization Address City/State/Zipcode Phone Number [address] [address] CENTER Comprehensive metabolic panel (06/09/2019 11:30 AM CDT)Only the most recent of10 resultswithin the time period is included. Protein, Total 6.7Comment: Specimen 6.0 - 8.3 gm/dL [facility] slightly hemolyzed [facility] Albumin 2.1 (L)Comment: Specimen 3.5 - 5.0 g/dL [facility] slightly hemolyzed [facility] Alkaline Phosphatase 202 (H) 40 - 150 U/L [facility] ER Total Bilirubin 1.2Comment: Specimen 0.2 - 1.2 mg/dL [facility] slightly hemolyzed [facility] Sodium 142 136 - 145 meq/L [facility] Potassium 4.4Comment: Specimen 3.5 - 5.1 meq/L [facility] slightly hemolyzed [facility] Chloride 107 98 - 107 meq/L [facility] ER CO2 30 (H) 22 - 29 meq/L [facility] BUN 25 (H) 7 - 21 mg/dL [facility] ER Creatinine 0.76Comment: Specimen 0.57 - 1.25 mg/dL [facility] slightly hemolyzed [facility] Glucose 108 (H) 70 - 105 mg/dL [facility] ER Calcium 7.9 (L) 8.4 - 10.2 mg/dL [facility] ER AST 77 (H)Comment: Specimen 5 - 34 U/L [facility] slightly hemolyzed [facility] ALT 86 (H)Comment: Specimen 6 - 55 U/L [facility] slightly hemolyzed [facility] EGFR 103Comment: ESTIMATED mL/min/1.73 sq [facility] GFR IS NOT ACCURATE [facility] CREATININE CLEARANCE IN PREDICTING GLOMERULAR FILTRATION RATE. ESTIMATED GFR IS NOT APPLICABLE FOR DIALYSIS PATIENTS. Specimen Blood Narrative Performed At Clinical Research Tech ID - ELISSA M [facility] Performing Organization Address City/State/Zipcode Phone Number [address] [address] [place] Potassium (06/05/2019 4:31 PM CDT)Only the most recent of2 resultswithin the time period is included. Potassium 3.9 3.5 - 5.1 meq/L [facility] Specimen Blood Narrative Performed At Clinical Research Tech ID - BS [facility] Performing Organization Address City/State/Zipcode Phone Number [address] [address] [place] Basic Metabolic Panel (06/05/2019 6:01 AM CDT)Only the most recent of74 results within the time period is included. Sodium 145 136 - 145 meq/L [facility] Potassium 3.0 (L) 3.5 - 5.1 meq/L [facility] Chloride 101 98 - 107 meq/L [facility] CO2 38 (H) 22 - 29 meq/L [facility] BUN 28 (H) 7 - 21 mg/dL [facility] Creatinine 0.87 0.57 - 1.25 mg/dL [facility] Glucose 110 (H) 70 - 105 mg/dL [facility] Calcium 7.9 (L) 8.4 - 10.2 mg/dL [facility] EGFR 88Comment: ESTIMATED GFR IS mL/min/1.73 sq m [facility] NOT ACCURATE CREATININE [facility] CLEARANCE IN PREDICTING GLOMERULAR FILTRATION RATE. ESTIMATED GFR IS NOT APPLICABLE FOR DIALYSIS PATIENTS. Specimen Blood Narrative Performed At Clinical Research Tech ID - PIAYA L [facility] Performing Organization Address City/State/Zipcode Phone Number [place] [phone] [place] [address] [facility] esoph swallow funct with cine video [...] MD Report Verified Date/Time:06/04/2019 15:08:42 Reading Location: [address] Reading Room Procedure Note Interface, External [...] Verified Date/Time: 06/04/2019 1 5:08:42 Reading Location: [facility] [id number] [facility] Reading Room Performing Organization Address City/State/Zipcode Phone Number GE RIS CBC with platelet count + automated diff (06/04/2019 5:15 AM CDT)Only the most recent of56 resultswithin the time period is included. WBC 13.3 (H) 3.5 - 10.5 K/L [facility] RBC 4.12 (L) 4.63 - 6.08 M/L [facility] Hemoglobin 10.8 (L) 13.7 - 17.5 GM/DL [facility] Hematocrit 35.6 (L) 40.1 - 51.0 % [facility] MCV 86.4 79.0 - 92.2 fL [facility] MCH 26.2 25.7 - 32.2 pg [facility] MCHC 30.3 (L) 32.3 - 36.5 GM/DL [facility] RDW 20.1 (H) 11.6 - 14.4 % [facility] Platelets 240 150 - 450 K/CU MM [facility] MPV 12.3 9.4 - 12.4 fL [facility] nRBC 0 0 - 0 /100 WBC [facility] % Neutros 71 % [facility] % Lymphs 16 % [facility] % Monos 9 % [facility] % Eos 3 % [facility] % Baso 1 % [facility] # Neutros 9.45 (H) 1.78 - 5.38 K/L [facility] # Lymphs 2.08 1.32 - 3.57 K/L [facility] # Monos 1.24 (H) 0.30 - 0.82 K/L [facility] # Eos 0.43 0.04 - 0.54 K/L [facility] # Baso 0.07 0.01 - 0.08 K/L [facility] Immature Granulocytes-Relative 0 0 - 1 % C HI [facility] Specimen Blood Performing Organization Address City/State/Zipcode Phone Number [facility] [address] [place] [address] [place] US abdomen limited (06/04/2019 2:10 AM CDT)Only the most recent of2 results within the time period is included. Specimen Narrative Performed At FINAL REPORT [facility] History: Elevated LFTs Abdominal ultrasound dated 06/04/2019 [...] Date/Time: 06/04/2019 0 4:00:37 Performing Organization Address [facility] Phone Number RIS Ammonia (06/03/2019 2:56 PM CDT)Only the most recent of2 resultswithin the time period is included. Ammonia 82 (H) 18 - 72 mol/L [facility] Specimen Blood Narrative Performed At Clinical Research Tech ID - BS [facility] Performing Organization Address [facility] Phone Number [facility] [address] [place] [address] CENTER Magnesium (06/03/2019 5:25 AM CDT)Only the most recent of55 resultswithin the time period is included. Magnesium 2.2Comment: Specimen slightly 1.6 - 2.6 mg/dL [facility] hemolyzed [facility] Specimen Blood Narrative Performed At Clinical Research Tech ID - BS [facility] Performing Organization Address City/State/Zipcode Phone Number [facility] [address] [place] [address] CENTER Blood gas, arterial (06/02/2019 8:15 AM CDT)Only the most recent of23 results within the time period is included. pH, Arterial 7.57 (H) 7.35 - 7.45 [facility] pCO2, Arterial 50 (H) 35 - 45 mmHg [facility] pO2, Arterial 68 (L) 80 - 90 mmHg [facility] O2 Sat, Arterial 95.6 (L) 96.0 - 97.0 % [facility] HCO3, Arterial 45 (HH) 21 - 29 mmol/L [facility] Base Excess, Arterial 20.4 (H) -2.0 - 3.0 mmol/L [facility] Patient Temperature 36.7 C [facility] FIO2 21.0 % [facility] Specimen Blood, Arterial Performing Organization Address City/[facility] Phone Number [facility] [address] [place] [address] [place] Vancomycin level, trough (06/02/2019 1:24 AM CDT)Only the most recent of5 resultswithin the time period is included. Vancomycin Tr 32.2 (HH) 10.0 - 20.0 ug/mL [facility] Specimen Blood Narrative Performed At Clinical Research Tech ID - SANDRA Richards [facility] Performing Organization Address City/State/Zipcode Phone Number [place] [phone] [place] [address] [place] ECHOCARDIOGRAM REPORT - SCAN (06/01/2019 9:20 PM CDT) Narrative Performed At This result has an attachment that is no t available. 2D Echo W/Doppler(CW/PW/Color) (06/01/2019 2:50 PM CDT) Ejection Fraction [facility] ECHO HEAR TLAB [facility] Specimen Narrative Performed At Transthoracic Echocardiography Report (T TE) [facility] ECHO [facility]LAB [facility] Demographics Patient Roya Valdes of Study06/01/2019 Male Visit [id number] Unknown Room [id number] Number Date of 1955Referring PhysicianOle Dominguez MD Age 63 year(s)Sulfonator Operator Isael Middleton Telescope Repairer Aliya Yee Interpreting Stephan Conklin MD Procedure [...] of Study 06/01/2019 Gender Male Visit Number [id number] Race Unknown [facility] C724 Number Date of 1955 Referri Physician Ole Dominguez MD Age 63 year(s) Sonogra pher Abed Kane Telescope Repairer Izumesh Yee Interpr eting Isaac Gonzalez MD [...] T CI: 2.59 l/min/m^2 Performing Organization Address City/[facility] Phone Number [facility] ECHO HEARTLAB [facility] MRSA screen (06/01/2019 10:47 AM CDT)Only the most recent of2 resultswithin the time period is included. Result No MRSA isolated [facility] Specimen Nasal Performing Organization Address City/[facility] Phone Number [address] [address] CENTER Phosphorus (06/01/2019 10:46 AM CDT)Only the most recent of48 resultswithin the time period is included. Phosphorus 4.3 2.3 - 4.7 mg/dL [facility] Specimen Blood Narrative Performed At Clinical Research Tech ID - CAROLINA F [facility] Performing Organization Address [facility] Phone Number [address] [address] CENTER Prothrombin time/INR (05/31/2019 10:31 AM CDT)Only the most recent of9 results within the time period is included. Protime 17.8 (H) 11.9 - 14.2 seconds [facility] INR 1.5 <=5.9 [facility] Specimen Blood Narrative Performed At Effective 07/24/2018: PT Reference Range [facility] Change New: 11.9-14.2Previous: 11.7-14.7 RECOMMENDED COUMADIN/WARFARIN INR THERAPY RANGES STANDARD DOSE: 2.0-3.0Includes: PROPHYLAXIS for venous thrombosis, systemic embolization; TREATMENT for venous thrombosis and/or pulmonary embolus. HIGH RISK: Target INR is 2.5-3.5 for patients wiht mechanical heart valves. Performing Organization Address City/State/Zipcode Phone Number [address] [address] C[place] Hepatitis panel, acute (05/31/2019 8:24 AM CDT) Hep A IgM Reactive (A) Nonreactive [facility] Hep B C IgM Nonreactive Nonreactive [facility] Hepatitis C Ab Nonreactive Nonreactive [facility] HBsAg Screen Nonreactive Nonreactive [facility] Specimen Blood Narrative Performed At Clinical Research Tech ID - SONIA Lloyd [facility] Performing Organization Address City/[facility] Phone Number [address] [address] CENTER B-type Natriuretic Factor (BNP) (05/31/2019 8:23 AM CDT)Only the most recent of 4 resultswithin the time period is included. BNP 1,536 (H) 0 - 100 pg/mL [facility] Specimen Blood Narrative Performed At Clinical Research Tech ID - ALMA Richards [facility] Performing Organization Address City/[facility] Phone Number [address] [address] CENTER Vancomycin level, random (05/31/2019 8:23 AM CDT)Only the most recent of2 resultswithin the time period is included. Vancomycin Rm 18.6 ug/mL [facility] Specimen Blood Narrative Performed At Reference Range: No Normals [facility] Clinical Research Tech ID - ALMA Richards Performing Organization Address City/State/Zipcode Phone Number [facility] [address] [place] [address] [place] Blood Culture - Routine (Right Venipuncture) (05/31/2019 8:22 AM CDT)Only the most recent of8 resultswithin the time period is included. Result No growth in 5 days [facility] Specimen Blood Performing Organization Address [facility] Phone Number [facility] [address] [place] [address] [place] ECG 12 lead (05/31/2019 7:21 AM CDT)Only the most recent of9 resultswithin the time period is included. Specimen Narrative Performed At Ventricular Rate 83 BPM GE MUSE Atrial Rate 76 BPM QRS Duration 122 ms Q-T Interval 376 ms QTC Calculation(Bazett) 441 ms R Butler 9 degrees T Butler 168 degrees Atrial fibrillation Left ventricular hypertrophy [...] 376 ms QTC Calculation(Bazett) 441 ms R Butler 9 degrees T Butler 168 degrees Atrial fibrillation Left ventricular hypertrophy with QRS wi dening Nonspecific ST and T wave abnormality Abnormal ECG When compared with ECG of 30-MAY-2019 19 :25, No significant change was found Confirmed by MD YO YOCHAI ([id number]) on 06/02/2019 7:02:10 AM Performing Organization Address City/[facility]/Zipcode Phone Number GE MUSE Urea Nitrogen, random urine (05/31/2019 3:26 AM CDT)Only the most recent of2 resultswithin the time period is included. Urea Nitrogen, Ur 332 mg/dL [facility] Specimen Urine Narrative Performed At Reference Range: No Normals [facility] Clinical Research Tech ID - PIAYA L Performing Organization Address [facility] Phone Number [address] [address] [place] Sodium, random urine (05/31/2019 3:26 AM CDT)Only the most recent of2 results within the time period is included. Sodium Urine 59 meq/L [facility] Specimen Urine Narrative Performed At Reference Range: No Normals [facility] Clinical Research Tech ID - PIAYA L Performing Organization Address [facility] Phone Number [address] [address] [place] Creatinine, random urine (05/31/2019 3:26 AM CDT)Only the most recent of2 resultswithin the time period is included. Creatinine, Ur 24.9 mg/dL [facility] Specimen Urine Narrative Performed At Reference Range: No Normals [facility] Clinical Research Tech ID - PIAYA L Performing Organization Address [facility] Phone Number [address] [address] [place] XR chest 1 view portable / bedside (05/30/2019 9:03 PM CDT)Only the most recent of44 resultswithin the time period is included. Specimen Narrative Performed At FINAL REPORT GE [facility] History: Right-sided effusion noted on o utside [...] 2:00:23 Performing Organization Address City/State/Zipcode Phone Number [facility] XR chest 2 views (05/08/2019 12:14 PM CDT) Specimen Narrative Performed At FINAL REPORT [facility] EXAMINATION: PA and lateral views of the [...] Verified Date/Time: 05/09/2019 0 8:51:36 Reading Location: [facility] Reading Dennise wallace 1 - B01.627 Performing Organization Address City/[facility] Phone Number GE RIS Prealbumin (04/23/2019 3:53 AM MARKET GARDEN WORKER) Prealbumin 7 (L) 14 - 45 mg/dL [facility] Specimen Blood Narrative Performed At Clinical Research Tech ID - ELISSA Wallace [facility] Performing Organization Address City/[facility]/Zipcode Phone Number [address] [address] [place] TRANSFUSION SERVICE REPORT - SCAN (04/19/2019 6:02 PM MARKET GARDEN WORKER)Only the most recent of6 resultswithin the time period is included. Narrative Performed At This result has an attachment that is no t available. Prepare Leuko-Red RBC (04/18/2019 11:54 PM MARKET GARDEN WORKER)Only the most recent of6 results within the time period is included. CROSSMATCH COMPATIBLE SAFETRACE TX Unit ABO A Neg SAFET[place]ACE TX UNIT NUMBER [id number] SAFETRACE TX Status TX_TIMEINCHART SAFET[place]ACE [place] Blood Bank Product RED BLOOD CELLS [place]AF[place]ACE [place] PRODUCT CODE [id number] [place] Specimen Other Performing Organization Address [facility] Phone Number SAFETRACE TX Transfuse Leuko-Red RBC (04/17/2019 11:41 AM MARKET GARDEN WORKER)Only the most recent of14 resultswithin the time period is included.aPTT (04/17/2019 3:30 AM MARKET GARDEN WORKER)Only the most recent of40 resultswithin the time period is included. PTT 41.6 (H) 22.5 - 36.0 seconds [facility] Specimen Blood Performing Organization Address [facility] Phone Number [address] [address] [place] Hemoglobin and hematocrit (04/17/2019 12:27 AM MARKET GARDEN WORKER)Only the most recent of2 resultswithin the time period is included. Hemoglobin 7.7 (L) 13.7 - 17.5 GM/DL [facility] Hematocrit 23.6 (L) 40.1 - 51.0 % [facility] Specimen Blood Narrative Performed At Clinical Research Tech ID - [id number] [facility] Performing Organization Address [facility]/Zipcode Phone Number [address] [address] [place] Prepare plasma (04/16/2019 11:54 PM MARKET GARDEN WORKER) Unit ABO A Pos SAFETRACE [place] UNIT NUMBER [id number] SAFETRACE TX Status TX_TIMEINCHART [place] Blood Bank Product FFP SAFET[place]ACE [place] PRODUCT CODE [id number] [place] Specimen Blood Performing Organization Address [facility] Phone Number SAFETRACE [place] Prepare cryoprecipitate (04/16/2019 11:54 PM MARKET GARDEN WORKER) Unit ABO A Pos [place] UNIT NUMBER [id number] SAFETRACE TX Status TX_TIMEINCHART SAFETRACE [place] Blood Bank Product CRYOPRECIPITATE SAFETRACE [place] PRODUCT CODE [id number] SAFETRACE [place] Specimen Blood Performing Organization Address City/[facility] Phone Number S[place]ACE [place] PERIPHERAL VASCULAR REPORT - SCAN (04/16/2019 9:23 PM MARKET GARDEN WORKER) Narrative Performed At This result has an attachment that is no t available. Calcium, Ionized (04/16/2019 3:28 AM MARKET GARDEN WORKER)Only the most recent of6 resultswithin the time period is included. Calcium, Ion 1.09 (L) 1.12 - 1.27 mmol/L [facility] pH, Blood 7.44 [facility] Specimen Blood Performing Organization Address City/[facility] Phone Number [facility] [address] [place] [address] CENTER Central Line (04/15/2019 5:48 PM MARKET GARDEN WORKER) Narrative Performed At Enoch Chung NP 5:50 [...] verify the correct patient, procedure, equipmen t, end user support specialist and site/side marked as required. [...] Venous doppler arm, left (04/15/2019 11:30 AM MARKET GARDEN WORKER) [facility] ER ECHO HEAR [facility] Specimen Impressions Performed At [facility] ECHO HEARTLAB [facility] Left Impression 1. There is total deep [...] Upper Extremities Veins [facility] ECHO HEARTLAB [facility] Demographics Patient Name JOHN VERGARA Date of Study04/15/2019 [id number] Visit Number [id number] Gender Male Accession Number [id number] Date of Birth1955 [facility] Room [id number] TANIA Patten SonographerAidee Ruggiero, RVTInterpreting Alyssa Cabrera [...] External Ris In - 04/16/2019 10:57 AM MARKET GARDEN WORKER PV LAB - Upper Extremities Veins Demographics Patient Name JOHN VERGARA ate of Study 04/15/2019 A [employer] 63 Visit Number [id number] G amalia Male Accession Number [id number] ate of 1955 Referring Alicia howard Number [id number] Physician TANIA Mccracken Sulfonator Operator Aidee Ruggiero, RVT I nterpreting Pearl [...] City/State/Zipcode Phone Number [facility] ECHO HEARTLAB [facility] Thromboelastograph (TEG) (04/15/2019 11:28 AM MARKET GARDEN WORKER) TEG Activated Clotting Time 5.0 4.0 - 7.0 minutes [facility] TEG Fibrinogen Activity 75.9 (H) 61.0 - 73.0 degrees [facility] TEG Platelet Aggregation 69.6 (H) 55.0 - 65.0 MM [facility] TEG Fibrinolysis 0.1 0.0 - 5.0 % [facility] TEG-H Activated Clotting Time 5.1 4.0 - 7.0 minutes [facility] TEG-H Fibrinogen Activity 76.0 (H) 61.0 - 73.0 degrees [facility] TEG-H Platelet Aggregation 65.7 (H) 55.0 - 65.0 MM [facility] TEG-H Fibrinolysis 4.1 0.0 - 5.0 % [facility] Specimen Blood Performing Organization Address City/[facility]/Zipcode Phone Number [facility] [address] [place], [place] [phone] CENTER Transfuse plasma (04/15/2019 11:03 AM MARKET GARDEN WORKER)Only the most recent of2 resultswithin the time period is included.Transfuse cryoprecipitate (04/15/2019 9:22 AM MARKET GARDEN WORKER) Only the most recent of2 resultswithin the time period is included.Lactic Acid, Arterial (04/15/2019 4:05 AM MARKET GARDEN WORKER) Lactate, Art 1.2 0.5 - 2.2 mmol/L [facility] Specimen Blood, Arterial Narrative Performed At Clinical Research Tech ANGELI Wallace [facility] Performing Organization Address [facility] Hospitalcode Phone Number [facility] [address] [place] [address] CENTER PT/aPTT (04/15/2019 1:58 AM MARKET GARDEN WORKER)Only the most recent of4 resultswithin the time period is included. Protime 19.8 (H) 11.9 - 14.2 seconds [facility] INR 1.7 <=5.9 [facility] PTT 41.1 (H) 22.5 - 36.0 seconds [facility] Specimen Blood Narrative Performed At Effective 07/24/2018: PT Reference Range [facility] Change New: 11.9-14.2Previous: 11.7-14.7 RECOMMENDED COUMADIN/WARFARIN INR THERAPY RANGES STANDARD DOSE: 2.0-3.0Includes: PROPHYLAXIS for venous thrombosis, systemic embolization; TREATMENT for venous thrombosis and/or pulmonary embolus. HIGH RISK: Target INR is 2.5-3.5 for patients wiht mechanical heart valves. Performing Organization Address City/[facility] Hospitalcode Phone Number [facility] [address] [address] [place] Fibrinogen (04/15/2019 1:58 AM MARKET GARDEN WORKER)Only the most recent of2 resultswithin the time period is included. Fibrinogen 177 (L) 225 - 434 mg/dl [facility] Specimen Blood Performing Organization Address [facility] Hospitalconv Phone Number [address] [address] [place] Cortisol (04/15/2019 12:07 AM MARKET GARDEN WORKER) Cortisol, Total 10.6 3.7 - 19.4 ug/dL [facility] Specimen Blood Narrative Performed At Clinical Research Tech ID - BS [facility] Performing Organization Address [facility] Hospitalconv Phone Number [address] [address] [place] AFB culture + smear (non-sputum) (04/14/2019 6:48 PM MARKET GARDEN WORKER)Only the most recent of10 resultswithin the time period is included. Result No acid-fast bacilli isolated in [facility] 42 days CENTER AFB Smear No acid fast bacilli seen [facility] Specimen BAL Performing Organization Address [facility] Phone Number [address] [address] [place] Fungus culture + smear (04/14/2019 6:48 PM MARKET GARDEN WORKER)Only the most recent of11 resultswithin the time period is included. Result <1+ Ana albicans (A) [facility] Fungus Smear No fungi seen [facility] Specimen BAL Performing Organization Address [facility] Phone Number [address] [address] [place] SPIN/CONCENTRATION CHARGE (04/14/2019 6:48 PM MARKET GARDEN WORKER)Only the most recent of4 resultswithin the time period is included. Concentration charged Done [facility] Specimen BAL Performing Organization Address City/[facility] Phone Number [address] [address] [place] Bronchial culture + gram stain (04/14/2019 6:48 PM MARKET GARDEN WORKER)Only the most recent of3 resultswithin the time period is included. Result No growth [facility] Gram Stain Result 1+ WBCs [facility] Gram Stain Result No organisms seen [facility] Specimen BAL Performing Organization Address [facility] Phone Number [address] [address] [place] Potassium-Stat Lab (04/14/2019 5:49 PM MARKET GARDEN WORKER)Only the most recent of3 results within the time period is included. Potassium 3.4 (L) 3.6 - 5.5 meq/L [facility] Specimen Blood, Arterial Performing Organization Address [facility]conv Phone Number [address] [address] [place] Sodium Na-Stat Lab (04/14/2019 5:49 PM MARKET GARDEN WORKER)Only the most recent of3 results within the time period is included. Sodium 138 135 - 148 meq/L [facility] Specimen Blood, Arterial Performing Organization Address City/[facility] Phone Number [address] [address] [place] Glucose-Stat Lab (04/14/2019 5:49 PM MARKET GARDEN WORKER)Only the most recent of3 resultswithin the time period is included. Glucose 100 70 - 110 mg/dL [facility] Specimen Blood, Arterial Performing Organization Address City/[facility]/Zipcode Phone Number [address] [address] [place] HGB/HCT (H&H)-Stat Lab (04/14/2019 5:49 PM MARKET GARDEN WORKER)Only the most recent of3 resultswithin the time period is included. Hemoglobin 9.0 (L) 13.0 - 16.8 g/dL [facility] Hematocrit 26.0 (L) 40.0 - 50.0 % [facility] Specimen Blood, Arterial Performing Organization Address [facility]conv Phone Number [address] [address] [place] Anaerobic culture (04/14/2019 5:15 PM MARKET GARDEN WORKER)Only the most recent of5 results within the time period is included. Result No anaerobes isolated [facility] Specimen Tissue Performing Organization Address [facility] Phone Number [address] [address] [place] Surgically obtained culture + gram stain (04/14/2019 5:15 PM MARKET GARDEN WORKER)Only the most recent of5 resultswithin the time period is included. Result No growth [facility] Gram Stain Result 1+ WBCs [facility] Gram Stain Result No organisms seen [facility] Specimen Tissue Performing Organization Address [facility] Phone Number [address] [address] [place] Tissue Exam (04/14/2019 4:54 PM MARKET GARDEN WORKER) Case Report Surgical Pathology Report Case: [id number] [facility] Authorizing Provider:Fernando Esquivel MD Collected: 04/14/[address] [place] [address] Ordering Location: [facility] Received:04/15/2019 0933 PERIOPERATIVE SERVICES Pathologist: Gay Puentes MD Specimens: A) - Pleura, PARIETAL PLEURA B) - Lung, Right Lower Lobe, Right lower lobe C) - Lung, Right Middle Lobe, Right middle lobe D) - Lung, Right Upper Lobe, Right upper lobe DIAGNOSIS [facility] ALTH A. PLEURA, RIGHT, PARIETAL PLEURA, DECORTICATION : [facility] - CHRONIC FIBROSING PLEURITIS. - NEGATIVE FOR [...] STIC ALTERATION. Signing Pathologist Direct Phone Line: [phone] CPT Code(s) 21544 X 4 [facility] HE ALTH [facility] CLINICAL HISTORY Empyema, right. [facility] H EALTH [facility] SPECIMEN SOURCE A. Pleura. B. Lung, right [facility] lower lobe. C. Lung, right [facility] middle lobe. D. Lung, right upper lobe GROSS DESCRIPTION A. Received in formalin labe led with the patient's name, accession number and "parietal pleura" is a 1.5 x 0.8 x 0.1 cm portion of devlin- pink fibromembranous tissue, which is entirely submitted in A1. [facility] ER B. Received in formalin labe led [...] submitted in D1. PA/ew MICROSCOPIC DESCRIPTION Performed. [facility] Gross assessment was [facility] HI [facility] performed at [place], Department of [facility] Pathology, [address] [place] [address], Technical component was [facility] performed at [place], Department of [facility] Pathology, [address] [place] [address], Professional component [facility] was performed at [place], Department of [facility] Pathology, [address] [place] [address], Specimen Tissue Tissue - Structure of lower lobe of righ t lung (body structure) Tissue - Structure of middle lobe of rig ht lung (body structure) Tissue - Structure of upper lobe of righ t lung (body structure) Performing Organization Address City/State/Zipcode Phone Number [address] [address] [place] Cytology (04/14/2019 3:48 PM MARKET GARDEN WORKER)Only the most recent of2 resultswithin the time period is included. Case Report Medical Cytology Report Case: [id number] [facility] Authorizing Provider:Fernando Esquivel MD Collected: 04/14/2019 1548 [facility] Ordering Location: [facility] Received:04/15/2019 0913 PERIOPERATIVE SERVICES Pathologist: Sean Piedra MD Specimen:Pleural, Ri ght, Multi loculated pleural effusions DIAGNOSIS RIGHT PLEURAL FLUID (CYTOSPINS): [facility] - NEGATIVE FOR MALIGNANCY [facility] PREDOMINANTLY BLOOD Signing Pathologist Direct Phone Line: CPT Code(s) [address]326 [facility] ALTH [facility] CLINICAL DATA Right multi loculated [facility] pleural effusions, [facility] pneumonia, acute respiratory failure SPECIMEN SOURCE RIGHT PLEURAL FLUID [facility] GROSS DESCRIPTION 750 mls bloody; 4 cytospins [facility] Collected: [id number] [facility] Received: [id number] STATEMENT OF ADEQUACY Satisfactory [facility] ER Gross assessment was [facility] C [facility] performed at [place], Department of [facility] Pathology, [address] [place] [address], Technical component was [facility] performed at [place], Department of [facility] Pathology, [address] [place] [address], Professional component was [facility] performed at [place], Department of [facility] Pathology, [address] [place] [address], Specimen Body Fluid Narrative Performed At This result has an attachment that is no t available. Performing Organization Address City/[facility]code Phone Number [address] [address] CENTER Type and screen, automated (04/14/2019 1:01 AM MARKET GARDEN WORKER)Only the most recent of2 resultswithin the time period is included. ABO/RH AUTOMATED (BEAKER) A NEGATIVE [facility] Ab Scrn NEGATIVE [facility] Specimen Blood Performing Organization Address City/[facility] Phone Number [address] [address] Hepatic function panel (04/13/2019 4:39 AM MARKET GARDEN WORKER)Only the most recent of3 results within the time period is included. Protein, Total 5.5 (L) 6.0 - 8.3 gm/dL [facility] Albumin 1.8 (L) 3.5 - 5.0 g/dL [facility] Total Bilirubin 1.1 0.2 - 1.2 mg/dL [facility] Bilirubin, Direct 0.7 (H) 0.1 - 0.5 mg/dL [facility] Alkaline Phosphatase 157 (H) 40 - 150 U/L [facility] AST 38 (H) 5 - 34 U/L [facility] ALT 34 6 - 55 U/L [facility] Specimen Blood Narrative Performed At Clinical Research Tech ID - CHELSEY [facility] Performing Organization Address City/[facility]/Zipcode Phone Number [facility] [address] [place] [address] CENTER REPORT OF PROCEDURE - ENDOSCOPY URL (04/11/2019 10:15 AM MARKET GARDEN WORKER) Narrative Performed At This result has an attachment that is no t available. Body fluid culture + gram stain (04/09/2019 12:10 PM MARKET GARDEN WORKER)Only the most recent of 4 resultswithin the time period is included. Result No growth [facility] Gram Stain Result <1+ WBCs [facility] Gram Stain Result <1+ gram negative rods [facility] Specimen Body Fluid Performing Organization Address City/[facility]/Zipcode Phone Number [address] [address] CENTER XR abdomen / KUB 1 view (04/04/2019 3:58 PM MARKET GARDEN WORKER)Only the most recent of4 resultswithin the time period is included. Specimen Narrative Performed At FINAL REPORT [facility] Abdomen date 04/04/2019 Comment:Frontal view of the abdomen demonstrates a feeding tube present with tip noted in the descending duodenum. Signed: Tomasa Foss MD Report Verified Date/Time:04/04/2019 18:03:16 Reading Location: [facility] C[address]W [facility] Procedure Note Interface, External Ris In - 04/04/2019 6:05 PM MARKET GARDEN WORKER FINAL REPORT Abdomen date 04/04/2019 Comment: Frontal view of the abdomen de monstrates a feeding tube present with tip noted in the descending duodenum. Signed: Tomasa Foss MD Report Verified Date/Time: 04/04/2019 1 8:03:16 Reading Location: [facility] C[address] Performing Organization Address City/State/Zipcode Phone Number [facility] Troponin I (03/31/2019 1:59 PM MARKET GARDEN WORKER)Only the most recent of11 resultswithin the time period is included. Troponin I 0.20 (HH) 0.00 - 0.03 ng/mL [facility] Specimen Blood Narrative Performed At Troponin I (TnI) levels must be interpreted [facility] in the context of the presenting symptoms and the clinical findings. Elevated TnI levels indicate myocardial damage, but are not specific for ischemic heart disease. Elevated TnI levels are seen in patients with other cardiac conditions (including myocarditis and congestive heart failure), and slight TnI elevations occur in patients with other conditions, including sepsis, renal failure, acidosis, acute neurological disease, and persistent tachyarrhythmia. Clinical Research Tech ID - SONIA Lloyd Performing Organization Address City/[facility]/[place] [address] [place] Lactic acid, venous (03/31/2019 1:59 PM MARKET GARDEN WORKER)Only the most recent of5 results within the time period is included. Lactate, Venous 1.7 0.5 - 2.2 mmol/L [facility] Specimen Blood Narrative Performed At Clinical Research Tech ID - SONIA Lloyd [facility] Performing Organization Address City/[facility]/Zipcode Phone Number [address] chest for pulmonary embolus (03/30/2019 11:54 PM MARKET GARDEN WORKER) Specimen Narrative Performed At FINAL REPORT GE [...] This exam was performed according to the [facility] dose optimization program which includes automated exposure [...] External Ris In - 03/31/2019 12:29 AM MARKET GARDEN WORKER FINAL REPORT Comparison: CT chest dated 03/17/2019 [...] This exam was performed according to the [facility] dose optimization program which includes automated exposure [...] 0:25:44 Performing Organization Address City/State/Zipcode Phone Number [facility] CT brain without IV contrast (03/30/2019 11:54 PM MARKET GARDEN WORKER)Only the most recent of2 resultswithin the time period is included. Specimen Narrative Performed At FINAL REPORT [facility] EXAM: CT, BRAIN, WITHOUT CONTRAST CLINICAL INDICATION: [...] External Ris In - 03/31/2019 4:22 AM MARKET GARDEN WORKER FINAL REPORT EXAM: CT, BRAIN, WITHOUT CONTRAST [...] 4:20:24 Performing Organization Address City/State/Zipcode Phone Number [facility] POCT-HEMATOCRIT (03/30/2019 8:53 PM MARKET GARDEN WORKER) POC-Hematocrit 28 (L)Comment: TESTED AT 40 - 50 % [address] [facility] [address] Specimen Blood Performing Organization Address City/[facility]/Zipcode Phone Number [address] [address] [place] POCT-HEMOGLOBIN (03/30/2019 8:53 PM MARKET GARDEN WORKER) POC-Hemoglobin 9.5 (L)Comment: TESTED AT 13.0 - 16.8 g/dL [address] [place] [address]IDTBIR AT [address] [address] Specimen Blood Performing Organization Address [facility] Phone Number [address] [address] [place] POCT-GLUCOSE (03/30/2019 8:53 PM MARKET GARDEN WORKER) POC-Glucose 249 (H)Comment: TESTED AT 70 - 110 mg/dL [address] [address] Specimen Blood Performing Organization Address [facility]conv Phone Number [address] [address] [place] POC-Sodium (03/30/2019 8:53 PM MARKET GARDEN WORKER) POC-Sodium 147Comment: TESTED AT [facility] 135 - 148 meq/L [address] [address] Specimen Blood Performing Organization Address City/[facility]code Phone Number [address] [address] CENTER POC-Potassium (03/30/2019 8:53 PM MARKET GARDEN WORKER) POC-Potassium 4.1Comment: TESTED AT [facility] 3.6 - 5.5 meq/L [address] [address] Specimen Blood Performing Organization Address City/[facility]/Zipcode Phone Number [address] [address] [place] POC-Calcium ionized (03/30/2019 8:53 PM MARKET GARDEN WORKER) POC-Calcium Ionized 1.63 ()Comment: 1.12 - 1.27 mmol/L [facility] TESTED AT [address] [address] Specimen Blood Performing Organization Address [facility]/Zipcode Phone Number [address] [address] [place] POC-Blood gases, arterial (03/30/2019 8:53 PM MARKET GARDEN WORKER) Temp. Celsius-POC 36.1 [facility] FIO2-POC 100Comment: TESTED AT [address] [address] pH, Arterial-POC 7.320 (L) 7.350 - 7.450 [facility] PCO2, Arterial-POC 61.8 (H) 35.0 - 45.0 mm Hg [facility] PO2, Arterial-POC 409.0 (H) 80.0 - 90.0 mm Hg [facility] SO2, Arterial-POC 100.0 (H) 96.0 - 97.0 % [facility] HCO3, Arterilal-POC 32.2 (H) 21.0 - 29.0 meq/L [facility] BE, Arterial-POC 6.0 (H) -2.0 - 3.0 meq/L [facility] Specimen Blood Performing Organization Address City/[facility]/Zipcode Phone Number [address] [address] [place] ECHOCARDIOGRAM REPORT - SCAN (03/26/2019 9:11 PM MARKET GARDEN WORKER) Narrative Performed At This result has an attachment that is no t available. IR Drainage Catheter Change (03/26/2019 7:30 PM MARKET GARDEN WORKER) Specimen Narrative Performed At FINAL REPORT [facility] Fluoroscopic guided replacement of a right chest tube. History: Patient's right chest tube has been retracted and is poorly draining.. Modality: Fluoroscopy Sedation: None Anesthesia:Two percent Lidocaine without epinephrine. Approach:Existing right chest tube Estimated blood loss:< 5 cc. Specimen: None. grind operator: Nato Dang MD. Car Record Clerk: Lauren. Fluoroscopy Time: 0.5 min. Reference Air [...] ove r the guidewire. A new 8.5 Brazilian Cook multipurpose drainage cathet er was advanced [...] MD Report Verified Date/Time:03/28/2019 14:57:26 Reading Location: [place] [address] Angio Body Reading Room Procedure Note Interface, External Ris In - 03/28/2019 2:59 PM MARKET GARDEN WORKER FINAL REPORT Fluoroscopic guided replacement of a ri ght chest tube. History: Patient's right chest tube has been retracted and is poorly draining.. Modality: Fluoroscopy Sedation: None Anesthesia: Two percent Lidocaine witho ut epinephrine. Approach: Existing right chest tube Estimated blood loss: < 5 cc. Specimen: None. grind operator: Nato Dang MD. Car Record Clerk: Lauren. Fluoroscopy Time: 0.5 min. Reference Air [...] ove r the guidewire. A new 8.5 Brazilian Cook multipurpose drainage cathet er was advanced [...] Verified Date/Time: 03/28/2019 1 4:57:26 Reading Location: [facility] B1 P048 Angio Body Reading Room Performing Organization Address City/State/Zipcode Phone Number [facility] 2D Echo W/Doppler(CW/PW/Color) (03/25/2019 7:04 PM MARKET GARDEN WORKER) Ejection Fraction [facility] ECHO HEAR TLAB [employer]ON CPA Specimen Narrative Performed At Transthoracic Echocardiography Report (T TE) [facility] ECHO HEARTLAB MKCKESSON CPACS Demographics Patient JOHN Valdes Date of Study03/25/2019 Gender Male Visit [id number] Race Luis Carlos tran [id number] Number Date of 1955 Referring PhysicianJerald Christensen [...] External Ris In - 03/26/2019 8:35 AM MARKET GARDEN WORKER Transthoracic Echocardiography Report (TTE) Demographics Patient Name JOHN VERGARA Date of Study 03/25/2019 Gender Male Visit Number [id number] Race Unknown Room [place] [address] Number Date of 1955 Refermatthias perdomo Physician [...] City/State/Zipcode Phone Number [facility] ECHO HEARTLAB MKCKESSON [facility] CT chest without IV contrast (03/25/2019 6:00 PM MARKET GARDEN WORKER)Only the most recent of2 resultswithin the time period is included. Specimen Narrative Performed At FINAL REPORT [facility] CT of the Chest, abdomen and pelvis [...] MD Report Verified Date/Time:03/25/2019 18:26:29 Reading Location: [facility] B1 C013Y CT Body R [facility] Procedure Note Interface, External Ris In - 03/25/2019 6:29 PM MARKET GARDEN WORKER FINAL REPORT CT of the Chest, abdomen [...] Verified Date/Time: 03/25/2019 1 8:26:29 Reading Location: [facility] B1 C013Y CT Body R eading Room Performing Organization Address City/State/Zipcode Phone Number [employer] CT abdomen/pelvis without iv contrast (03/25/2019 6:00 PM MARKET GARDEN WORKER) Specimen Narrative Performed At FINAL REPORT [facility] CT of the Chest, abdomen and pelvis [...] MD Report Verified Date/Time:03/25/2019 18:26:29 Reading Location: [facility] C013Y CT Body R eading Room Procedure Note Interface, External Ris In - 03/25/2019 6:29 PM MARKET GARDEN WORKER FINAL REPORT CT of the Chest, abdomen [...] Verified Date/Time: 03/25/2019 1 8:26:29 Reading Location: [facility] B1 C013Y CT Body R ding Room Performing Organization Address City/State/Zipcode Phone Number [facility] Urinalysis w/Microscopic + Reflex to Culture (03/25/2019 9:08 AM MARKET GARDEN WORKER)Only the most recent of2 resultswithin the time period is included. Color, UA Yellow [facility] Clarity, UA Hazy [facility] Specific [place], UA 1.018 1.001 - 1.035 [facility] pH, UA 5.5 5.0 - 8.0 [facility] Protein, UA 50 mg/dL (A) Negative [facility] Glucose, UA Negative Negative [facility] Ketones, UA Negative Negative [facility] Bilirubin, UA Negative Negative [facility] Blood, UA Small (A) Negative [facility] Nitrite, UA Negative Negative [facility] Leukocytes, UA Large (A) Negative [facility] Urobilinogen, UA 6.0 (H) 0.2 - 1.0 mg/dL [facility] RBC, UA <1 /HPF [facility] WBC, UA 54 /HPF [facility] Bacteria, UA Few [facility] Mucus Few [facility] Squam Epithel, UA <1 /HPF [facility] Hyaline Casts, UA 1 /LPF [facility] Specimen Source [facility] Specimen Urine Narrative Performed At Clinical Research Tech ID - [auto] [facility] Clinical Research Tech ID - [email or web address] Performing Organization Address City/[facility]/Zipcode Phone Number [address] [address] [place] Sputum Culture + Gram Stain (03/25/2019 9:08 AM MARKET GARDEN WORKER)Only the most recent of2 resultswithin the time period is included. Result See comment [facility] Gram Stain Result 4+ WBCs [facility] Gram Stain Result 0-5 epithelial cells [facility] Gram Stain Result No organisms seen [facility] Specimen Sputum Narrative Performed At 2+ Yeast [facility] No Normal respiratory rigo present Performing Organization Address City/State/Zipcode Phone Number [address] [address] [place] Urine culture (03/25/2019 9:08 AM MARKET GARDEN WORKER)Only the most recent of2 resultswithin the time period is included. Result No growth [facility] Specimen Urine Performing Organization Address City/State/Zipcode Phone Number [facility] [address] [place] [address] CENTER EEG EXTENDED MONITORING 40 - 60 MINUTES (03/24/2019 11:23 AM MARKET GARDEN WORKER) Specimen Narrative Performed At Date(s) of EE03/24/2019 GE RIS DATE OF REPORT:03/24/2019 ACC: [id number] EEG Number: [id number] Test Location: Inpatient ICU Start time: 03/24/2019 10:42 Stop time: 03/24/2019 11:23 ICD-10: R56.9 CPT Code: 06127 HISTORY: 63 y.o. male with hypertens ion, diastolic heart failure, chronic kidney disease who was transferr ed to [facility] for effusions and remains altered with [...] aftermath of ear lier seizure activity, other STORE CLERK CHECKER insult, or toxic-metabolic derangeme nts. An EEG without epileptiform discharges does not exclude the possibili ty of epilepsy. If the clinical suspicion of epilepsy re spencer, consider additional EEG recordings. Nando Metz MD Neurophysiology Fellow Elia Martinez M.D., FACDEB, FAAN, CALIN Syed Professor of Neurology, [facility] Medicine Director, [facility] Comprehensiv e Epilepsy Center Head, [facility] at [place], [place] Procedure Note Interface, External Ris In - 03/24/2019 12:32 PM MARKET GARDEN WORKER Date(s) of EE03/24/2019 DATE OF REPORT: 03/24/2019 ACC: [id number] EEG Number: [id number] Test Location: Inpatient ICU Start time: 03/24/2019 10:42 Stop time: 03/24/2019 11:23 ICD-10: R56.9 CPT Code: 85590 HISTORY: 63 y.o. male with hypertensio n, diastolic heart failure, chronic kidney disease who was transferr ed to [facility] for effusions and remains altered with [...] aftermath of ear lier seizure activity, other STORE CLERK CHECKER insult, or toxic-metabolic derangeme nts. An EEG without epileptiform discharges does not exclude the possibility of epilepsy. If the clinical suspicion of epilepsy re spencer, consider additional EEG recordings. Nando Metz MD Neurophysiology Fellow Elia Martinez M.D., FACNS, FAAN, CALIN S Professor of Neurology, [facility] Director, [facility] Epilepsy Center Head, John [facility] at [place], [place] Performing Organization Address City/State/Zipcode Phone Number GE RIS Manual Differential (03/23/2019 5:58 AM MARKET GARDEN WORKER)Only the most recent of2 results within the time period is included. % Neutros 93 % [facility] % Lymphs 4 % [facility] % Monos 2 % [facility] % Atypical Lymphs 1 (H) 0 - 0 % [facility] # Neutros 22.69 (H) 1.78 - 5.38 K/ul [facility] # Lymphs 0.98 (L) 1.32 - 3.57 K/ul [facility] # Monos 0.49 0.30 - 0.82 K/uL [facility] # Atypical Lymphs 0.24 (H) 0.00 - 0.00 K/uL [facility] Total Counted 100 [facility] WBC Morphology Normal [facility] Platelet Morphology Normal [facility] Anisocytosis 1+ few [facility] Poikilocytes 1+ few [facility] Ovalocytes 1+ few [facility] [place] Cells 1+ few [facility] Artifact Present [facility] Platelet Conc Adequate [facility] Specimen Blood Narrative Performed At Clinical Research Tech ID - Mariela Overholt [facility] User comments: Slide comments: Performing Organization Address City/State/Zipcode Phone Number [facility] [address] [place] [address] CENTER Body fluid cell count with differential (03/22/2019 2:37 PM MARKET GARDEN WORKER)Only the most recent of3 resultswithin the time period is included. Appearance Bloody (A) Clear [facility] Color Red (A) Colorless, Straw [facility] RBCs 88,000 (H) <=1 /cu mm [facility] Adjusted WBC Count 36,367 (H) <=5 /cu mm [facility] Lining Cells 364 (H) <=1 /cu mm [facility] LU[facility] HE [facility] % Segs 85 % [facility] % Lymphs 4 % [facility] % Monos 10 % [facility] % Eos 1 % [facility] % Baso 0 % [facility] Container Body Fluid EDTA Tube [facility] Specimen Body Fluid Performing Organization Address City/State/Zipcode Phone Number [facility] [address] [place] [address] CENTER Triglycerides, Pleural Fluid (03/22/2019 2:36 PM MARKET GARDEN WORKER)Only the most recent of3 resultswithin the time period is included. TRIGLYCERIDES, PLEURAL 35 See Note: mg/dL [facility] Comment: INCORPORATED Reference Range: CHYLOUS: >110 NONCHYLOUS:<50 SAMPLE SLIGHTLY LIPEMIC. SAMPLE MODERATELY HEMOLYZED. Specimen Body Fluid Narrative Performed At Performing Lab [facility] EZ [facility] [address] [address] [place] [address] Alia Luna MD, PhD, SOTO Performing Organization Address [facility] Number [facility] [place] [address] INCORPORATED [address] [address] Protein, Total, Pleural Fluid (03/22/2019 2:36 PM MARKET GARDEN WORKER)Only the most recent of3 resultswithin the time period is included. PROTEIN, TOTAL, PLEURAL FLUID 2.6 [facility] Specimen Body Fluid Performing Organization Address [facility] [place] [address] INCOR[place]ATED [address] [facility] Lactate Dehydrogenase (LD), Pleural Fluid (03/22/2019 2:36 PM MARKET GARDEN WORKER)Only the most recent of3 resultswithin the time [...] Lab [facility] E[facility] [address] [address] [place] [address] Alia Luna MD, PhD, SOTO Performing Organization Address [facility] Phone Number [employer] [place] [address] INCORPORATED [address] [address] Glucose Pleural Fluid (03/22/2019 2:36 PM MARKET GARDEN WORKER)Only the most recent of3 results within the time period is included. Glucose, Pleural Fluid 29 mg/dL [facility] Comment: INCORPORATED SAMPLE SLIGHTLY LIPEMIC. SAMPLE MODERATELY HEMOLYZED. Reference range approximates that found in serum . Specimen Body Fluid Narrative Performed At Performing Lab [facility] EZ [employer] Inst[facility] [address] [address] [place] [address] Alia Luna MD, PhD, SOTO Performing Organization Address City/[facility] Phone Number [facility] [place] [address] INCORPORATED [address] [facility] pH, body fluid (03/22/2019 2:36 PM MARKET GARDEN WORKER)Only the most recent of3 resultswithin the time period is included. pH, Body Fluid 7.5 [facility] PH FLUID TYPE Body fluid [facility] Comment: Reference range: Reference ranges have not been established on is type of fluid for this test. Specimen Body Fluid Narrative Performed At Performing Lab [facility] *RYLEY Carmudi Gordon [facility] [place], [address] [place] [address] Dr. [place] Pearl Kent MD, PhD Performing Organization Address [facility] Phone Number [facility] [place] [address] INCORPORATED [address] [facility] Adenosine Deaminase, Fluid (03/22/2019 2:36 PM MARKET GARDEN WORKER)Only the most recent of2 resultswithin the time [...] of this test have been determined by [employer] [place], [place].This test s hould not be used for diagnosis without confirmation b y other medically established means. Specimen Body Fluid Narrative Performed At Performing Lab [facility] [address] Gordon[address] [place], [address] [facility] [address] Guillen ID Pearl Kent MD, PhD Performing Organization Address [facility] Phone Number [place] [address] INCOR[place]ATED [address] [facility] Albumin Pleural Fluid (03/22/2019 2:35 PM MARKET GARDEN WORKER)Only the most recent of2 results within the time period is included. Albumin, Pleural Fluid 0.8 [facility] Specimen Body Fluid Performing Organization Address City/State/Zipcode Phone Number [facility], [place], [place] [address] INCORPORATED [address] [facility] Legionella culture (03/22/2019 2:32 PM MARKET GARDEN WORKER) Result No Legionella species isolated C [facility] Specimen BAL Performing Organization Address City/State/Zipcode Phone Number [place] [phone] [place] [address] CENTER US drainage chest with tube insertion (03/21/2019 6:25 PM MARKET GARDEN WORKER) Specimen Narrative Performed At FINAL REPORT [facility] Ultrasound guided insertion of bilatera l pigtail chest tube catheters. History: Bilateral loculated pleural effusions. Modality: Ultrasound Sedation: None Anesthesia:Two percent Lidocaine without epinephrine. Approach:Bilateral mid axillary line Estimated blood loss:< 5 cc. Specimen: Left bedside. grind operator: Nato Dang MD. Car Record Clerk: None. Technique: Informed written consent was obtained. [...] a large loculated right pleural effusion. The [facility] axillary line was marked, prepped with correcting, draped in the u sual sterile fashion. After local anesthesia was achieved with lidoc tiera small skin incision was made along the right midaxillary line at a low intercostal space. Under direct ultrasound guidance an 8 [facility] skater pigtail drain was advanced into [...] patient 's left chest and an 8 Brazilian skater pigtail drain was placed in a sim ilar fashion and connected to the atrium pleura. The patient tolerated the procedure well without evidence of immediate competition. Impression: Technically successful and uncomplicated placement of bilateral pigtail chest tubes under ultrasound guidance. Signed: Nato Dang MD Report Verified Date/Time:03/21/2019 19:48:47 Reading Location: [place] [address] Angio Body Reading Room Procedure Note Interface, External Ris In - 03/21/2019 7:50 PM MARKET GARDEN WORKER FINAL REPORT Ultrasound guided insertion of bilatera l pigtail chest tube catheters. History: Bilateral loculated pleural eff usions. Modality: Ultrasound Sedation: None Anesthesia: Two percent Lidocaine witho ut epinephrine. Approach: Bilateral mid axillary line Estimated blood loss: < 5 cc. Specimen: Left bedside. grind operator: Nato Dang MD. Car Record Clerk: None. Technique: Informed written consent was obtained. [...] a large loculated right pleural effusion. The [facility] axillary line was marked, prepped with correcting, [...] patient 's left chest and an 8 Brazilian skater pigtail drain was placed in a sim ilar fashion and connected to the [facility]rium pleura. The patient tolerated the procedure well without evidence of immediate competition. Impression: Technically successful and uncomplicated placement of bilateral pigtail chest tubes under ultrasound es dance. Signed: Nato Dang MD Report Verified Date/Time: 03/21/2019 1 9:48:47 Reading Location: [facility] B1 P048 Angio Body Reading Room Performing Organization Address City/State/Zipcode Phone Number [employer] Respiratory Panel [facility] (03/21/2019 8:50 AM MARKET GARDEN WORKER) Human Metapneumovirus Not detected Not detected, [facility] [employer] [facility] Rhinovirus Not detected Not detected, [facility] [employer] [facility] Influenza A Not detected Not detected, [facility] INFLUENZA A (NO SUBTYPE) [facility] ER Influenza A subtype H1 [facility] ER Influenza A Subtype H3 [facility] Influenza A Subtype H1-2009 [facility] ER Influenza B Not detected Not detected, [facility] [employer] [facility] Respiratory Syncytial Virus Not detected Not detected, [facility] [employer] [facility] Parainfluenza Virus 1 Not detected Not detected, [facility] [employer] [facility] ER Parainfluenza Virus 2 Not detected Not detected, [facility] [employer] [facility] ER Parainfluenza virus 3 Not detected Not detected, [facility] [employer] [facility] Parainfluenza Virus 4 Not detected Not detected, [facility] [employer] [facility] ER Adenovirus Not detected Not detected, [facility] [employer] [facility] Coronavirus 229E Not detected Not detected, [facility] [employer] [facility] ER Coronavirus HKU1 Not detected Not detected, [facility] [employer] [facility] ER Coronavirus NL63 Not detected Not detected, [facility] [employer] [facility] ER Coronavirus OC43 Not detected Not detected, [facility] [employer] [facility] Bordetella Pertussis Not detected Not detected, [facility] [employer] [facility] ER Chlamydophila Pneumoniae Not detected Not detected, [facility] [employer] [facility] Mycoplasma Pneumoniae Not detected Not detected, [facility] [employer] [facility] Specimen Nasopharyngeal Narrative Performed At Other viruses and bacteria not targeted by [facility] this PCR panel cannot be excluded; therefore clinical correlation and follow up of serology, culture results, and other molecular studies is required. The results are not intended to be used as the sole means for clinical diagnosis or patient management decisions. This sample was tested at the [facility] using the [employer] Film[employer] Respiratory Panel. It is FDA cleared and has been verified and approved by the [facility] for clinical use on nasopharyngeal swab specimens. The performance of the FilmArray RP has not been established in individuals who received influenza vaccine.Recent administration of a nasal influenza vaccine may cause false positive results for Influenza A and/or Influenza B. Performing Organization Address City/[facility] Phone Number [address] [address] CENTER Reticulocyte count (03/21/2019 8:50 AM MARKET GARDEN WORKER) % Retic 1.9 (H) 0.5 - 1.8 % [facility] Specimen Blood Narrative Performed At Clinical Research Tech ID - [id number] [facility] Performing Organization Address [facility]/Zipcode Phone Number [address] [address] [place] Rapid Influenza A&B Screen (03/21/2019 8:50 AM MARKET GARDEN WORKER) Rapid Influenza A Antigen Negative Negative, Inconclusive [facility] Rapid influenza B Antigen Negative Negative, Inconclusive [facility] Specimen Nasal Performing Organization Address City/[facility] Phone Number [address] [address] CENTER Vitamin B12 and Folate (03/21/2019 8:49 AM MARKET GARDEN WORKER)Only the most recent of2 results within the time period is included. Vitamin B12 >2000 (H) 213 - 816 pg/mL [facility] Folate 17.3 >=7.0 ng/mL [facility] Specimen Blood Narrative Performed At Clinical Research Tech ID - ELISSA Wallace [facility] Performing Organization Address [facility] Phone Number [address] [address] CENTER Iron, TIBC, % sat. (without ferritin) (03/21/2019 8:49 AM MARKET GARDEN WORKER) Iron 39.0 (L) 40.0 - 160.0 ug/dL [facility] TIBC 113 (L) 250 - 450 ug/dL [facility] Iron % Saturation 35 20 - 55 % [facility] Specimen Blood Narrative Performed At Clinical Research Tech ID - ELISSA Wallace [facility] Performing Organization Address City/[facility] Phone Number [address] [address] CENTER Lactate dehydrogenase (LDH) (03/21/2019 8:49 AM MARKET GARDEN WORKER) LDH 300 (H) 125 - 220 U/L [facility] Specimen Blood Narrative Performed At Clinical Research Tech ID - ELISSA Wallace [facility] Performing Organization Address City/[facility] Phone Number [address] [address] CENTER Ferritin (03/21/2019 8:49 AM MARKET GARDEN WORKER) Ferritin 1,076 (H) 5 - 275 ng/mL [facility] Specimen Blood Narrative Performed At Clinical Research Tech ID - ELISSA Wallace [facility] Performing Organization Address City/State/Zipcode Phone Number [address] [address] [place] ECHOCARDIOGRAM REPORT - SCAN (03/20/2019 9:22 PM MARKET GARDEN WORKER) Narrative Performed At This result has an attachment that is no t available. 2D Echo W/Doppler(CW/PW/Color) (03/20/2019 11:05 AM MARKET GARDEN WORKER) Ejection Fraction [facility] ECHO HEAR TLAB MKFutubankON [facility] Specimen Narrative Performed At Transthoracic Echocardiography Report (T TE) [facility] ECHO HEARTLAB MKCKESSON [facility] Demographics Patient JOHN Valdes Date of Study03/20/2019 Gender Male Visit [id number] Race Unk nown [id number] Number Date of 1955 Referring Physician Age [...] severity assessment is unreliable . Aortic Valve Bvnl-[id number] AoV cusp calcification. Mi ld aortic stenosis. [...] External Ris In - 03/20/2019 3:29 PM MARKET GARDEN WORKER Transthoracic Echocardiography Report (TTE) Demographics Patient Name JOHN VERGARA Date of Study 03/20/2019 Gender Male Visit Number [id number] Race Unknown Room Num [facility] 7102 Number Date of 1955 Eileen perdomo Physician Age 63 year(s) Sonograp her [facility] Ziyad Bentley MD Physicia n [...] severity assessment is unreliable . Aortic Valve Pjga-ob-pwbsfmsj AoV cusp calcification. Mild aortic sten osis. [...] T CI: 3.5 l/min/m^2 Performing Organization Address City/[facility]/Zipcode Phone Number [facility] ECHO HEARTLAB MKCKESSON CPACS ABORH, manual (03/20/2019 5:48 AM MARKET GARDEN WORKER) ABO Grouping A [facility] Rh Factor NEG [facility] Specimen Blood Performing Organization Address [facility] Hospitalconv Phone Number [address] [address] TSH/Free T4 If Indicated (03/20/2019 3:00 AM MARKET GARDEN WORKER)Only the most recent of3 resultswithin the time period is included. TSH 3.06 0.35 - 4.94 uIU/mL [facility] Specimen Blood Narrative Performed At Clinical Research Tech ID - BS [facility] Performing Organization Address [facility] Phone Number [address] [address] CENTER Hemoglobin A1c (03/20/2019 3:00 AM MARKET GARDEN WORKER)Only the most recent of2 resultswithin the time period is included. Hemoglobin A1C 6.2 (H) 4.3 - 6.1 % [facility] Specimen Blood Performing Organization Address [facility] Phone Number [address] [address] CENTER Lipid panel (03/20/2019 2:59 AM MARKET GARDEN WORKER)Only the most recent of2 resultswithin the time period is included. Triglycerides 60Comment: Specimen slightly mg/dL [facility] hemolyzed [facility] [place] Cholesterol 55Comment: Specimen slightly mg/dL [facility] hemolyzed [facility] HDL 15 mg/dL [facility] LDL Calculated 28 mg/dL [facility] Specimen Blood Narrative Performed At Triglyceride Reference Range: [facility] Low Risk <150 [id number] High Risk 200-499 Very High Risk>=500 Cholesterol Reference Range: Low Risk <200 [id number] High Risk>240 HDL Cholesterol Reference Range: Low Risk >=60 High Risk <40 LDL Cholesterol Reference Range: Optimal<100 Near [id number] [id number] [id number] Very High >=190 Clinical Research Tech ID - SANDRA Richards Specimen slightly icteric Performing Organization Address City/[facility]/Zipcode Phone Number [address] [address] CENTER Strep pneumoniae antigen (03/20/2019 2:23 AM MARKET GARDEN WORKER) Strep pneumoniae Presumptive negative Presumptive negative [facility] Antigen for pneumococcal for pneumococcal [facility] pneumonia - see comment pneumonia - see CENTER comment, Presumptive negative for pneumococcal meningitis - see comment Specimen Urine Narrative Performed At Presumptive negative for pneumococcal [facility] pneumonia, suggesting no current or recent pneumococcal infection. Infection due to S. pneumoniae cannot be ruled out since the antigen present in the sample may be below the detection limit of the test. Performing Organization Address City/[facility] Phone Number [address] [address] [place] Legionella antigen, urine (03/20/2019 2:23 AM [employer]) Legionella Urine Antigen Negative - see [facility] commentComment: Negative [facility] for L. pneumophila serogroup 1 antigen, suggesting no recent or current infection with this serogroup. Legionellosis cannot be ruled out since other serogroups and species may cause disease. Specimen Urine Performing Organization Address City/[facility]/Zipcode Phone Number [address] [address] C[place] Protein, random urine (03/20/2019 2:22 AM [employer]) Protein, Urine 72 (H) 0 - 14 mg/dL [facility] Specimen Urine Narrative Performed At Clinical Research Tech ID - BS [facility] ICAL [place] Performing Organization Address City/[facility]/Zipcode Phone Number [address] [phone] [place] Osmolality, urine (03/20/2019 2:22 AM [employer]) Osmolality, Ur 540 40-1,400 mOsm/kg [facility] Specimen Urine Performing Organization Address [facility] Phone Number [address] [address] [place] Chloride, random urine (03/20/2019 2:22 AM [employer]) ChlorideUr <20 meq/L [facility] Specimen Urine Narrative Performed At Reference Range: No Normals [facility] Clinical Research Tech ID - BS Performing Organization Address City/[facility] Phone Number [address] [address] [place] ECHOCARDIOGRAM REPORT - SCAN (01/23/2019 9:21 PM [employer]) Narrative Performed At This result has an attachment that is no t available. MRA head without IV contrast (01/23/2019 8:01 AM [employer]) Specimen Narrative Performed At FINAL REPORT [facility] MRV Head CLINICAL HISTORY:Stroke, follow up concern for transverse sinus thrombosis, need MRV please TECHNIQUE: MRV of the head utilizing 2-D nvhk-pt-pgiiin technique. COMPARISON: CTA 01/22/2019 FINDINGS: There is [...] External Ris In - 01/23/2019 8:29 AM [employer] FINAL REPORT MRV Head CLINICAL HISTORY:Stroke, follow up concern for transverse sinus thrombosis, need MRV please TECHNIQUE: MRV of the head utilizing 2-D lvzf-ke-mbgapk technique. COMPARISON: CTA 01/22/2019 FINDINGS: There is [...] 8:26:36 Performing Organization Address City/State/Zipcode Phone Number [facility] MR brain without IV contrast (01/22/2019 6:11 PM [employer]) Specimen Narrative Performed At FINAL REPORT [facility] MR, BRAIN, WITHOUT CONTRAST INDICATION: Stroke, follow [...] External Ris In - 01/22/2019 7:28 PM [employer] FINAL REPORT MR, BRAIN, WITHOUT CONTRAST INDICATION: [...] 9:25:11 Performing Organization Address City/State/Zipcode Phone Number [facility] CTA carotid (01/22/2019 4:59 PM [employer]) Specimen Narrative Performed At FINAL REPORT [facility] CLINICAL HISTORY: Neuro deficit, acute, stroke suspected [...] External Ris In - 01/24/2019 2:56 PM [employer] FINAL REPORT CLINICAL HISTORY: Neuro deficit, acute, [...] 9:16:06 Performing Organization Address City/State/Zipcode Phone Number [facility] CTA brain (01/22/2019 4:59 PM [employer] WORK[employer]) Specimen Narrative Performed At FINAL REPORT [facility] CLINICAL HISTORY: Neuro deficit, acute, stroke suspected [...] External Ris In - 01/22/2019 7:18 PM [employer] FINAL REPORT CLINICAL HISTORY: Neuro deficit, acute, [...] 9:16:06 Performing Organization Address City/State/Zipcode Phone Number [facility] Transthoracic 2D echo w/ doppler (cw/pw/color) (01/22/2019 1:16 PM [employer]) Ejection Fraction [facility] Specimen Narrative Performed At Transthoracic Echocardiography Report (T TE) [facility] Demographics Patient JOHN Valdes Date of Study01/22/2019 Gender Male Visit [id number] Race Unknown [id number] Number Date of 1955 ReferringCHRISTOPHER GOODRICH Physician Age 63 year(s) SonographerJohnny [facility] Fredi Eller, NB, RDCS,RVT,RDMS Telescope Repairer Aliya YeeInterpreting Lyn Mike MD Ciolacely Physician [...] of 1.82 cm2. 4. Mild mitral regurgitation. 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 5. Aortic [...] severity assessment is unreliable . Aortic Valve Fian-iz-ovpezptd AoV cusp calcification. Mi ld aortic stenosis. Ao V area at rest by continuity equation is in the ra nge of 1.82 cm2. Preserved stroke volume . Mitral Valve Mild MV leaflet thickening. Se giles mitral annular and subvalvular ca lcification. Mi ld mitral regurgitation. Mi yf-rq-waxykmqa mitral stenosis secondary to MAC. MV area [...] External Ris In - 01/23/2019 10:36 AM [employer] WORK[employer] Transthoracic Echocardiography Report (TTE) Demographics Patient Name JOHN VERGARA Date of St udy 01/22/2019 Gender Male Visit Number [id number] Race Unknown [place] [id number] Number Date of 1955 Referring BRITTON GOODRICH Physician Age 63 year(s) Sonographe gracie Eller, NB, RDCS,RVT,RDMS Telescope Repairer MD Isaac Espinosa Physician Procedure Type of [...] severity assessment is unreliable . Aortic Valve Qxem-of-nzxyjvnh AoV cusp calcification. Mild aortic sten osis. AoV area at rest by continuity equation is in the range of 1.82 cm 2. Preserved stroke volume. Mitral Valve Mild MV leaflet thickening. Severe mitral an nular and subvalvular calcification. Mild mitral regu rgitation. Updl-ml-srpmiava mitral stenosis secondary to MAC. MV area [...] City/State/Zipcode Phone Number [facility] RPR (01/21/2019 11:26 PM [employer] WORKER) RPR Nonreactive Nonreactive [facility] Specimen Blood Performing Organization Address City/State/Zipcode Phone Number [facility] [address] [place] [address] [place] after 08/28/2018 Insurance Payer Benefit Plan / Group Subscriber ID Type Phone A nena DAIGLE xxxxxxxxxxx Advance Directives For more information, please contact:[address] [phone] Code Status Date Activated Date Inactivated Comments Full Code 05/30/2019 8:01 PM 06/09/2019 10:53 PM This code status was determined by: Patient Full Code 03/19/2019 11:39 PM 04/25/2019 7:15 PM This code status was determined by: Patient Full Code 01/21/2019 8:37 PM 01/24/2019 4:42 PM This code status was determined by: Patient
--- OUTSIDE RECORDS SUMMARY | 2019-08-29 18:41 | XMS REPORT | Continuity of Care Document ---
:1955 Author Organization Formerly [facility] t Address [address] [place]. [address] [place] [id number] Care Team Providers Name Role Phone Pcp [...] Clinician Laya Tabares MD, Devonte Attending Clinician [phone] Irineo Aj MD Attending Clinician Hal CAMERON Attending Clinician Sangita Breaux MD Attending Clinician Anh CAMERON Attending Clinician Bob Andrews MD Attending Clinician Checo Holguin MD Attending Clinician Miranda Chavez CRNA Attending Clinician [phone] Kadeem Peña MD Attending Clinician Fara CAMERON Attending Clinician Ricardo Hamilton MD Attending Clinician Hilario CAMERON Attending Clinician FARA Attending Clinician Unavailable DELANEY HORNE Admitting Clinician Unavailable EDILMA ZAMUDIO Admitting Clinician Unavailable HILARIO Admitting Clinician Unavailable Payers Payer Name Policy Policy Number Effective Expiration Source Type Date Date AMBETTERAMBETTER xxxxxxxxxxx [facility]xxx [facility] Problems Condition Condition Condition Status Onset Resolution Last Treating Co mments Source Name Details Category Date Date Treatment Clinician Date Volume Volume Disease Active 2020-[address] [facility] overload [facility] 00 [facility] Delirium Delirium Disease Active 2020- [facility] Dysphagia Dysphagia Disease Active 2020-[address] [facility] 2-22 [facility] 00 [facility] Severe Severe Disease Active 2020-[address] [facility] [...] St -24 [facility] - 00:[facility]: [facility] 00 [facility] Hydropneum Hydropneum Disease Active C HI [facility] [...] C HI [facility] c shock c shock [facility] History of Past Illness Condition Condition [...] Date Stop Date Source Natural father Hypertension [facility] Natural mother Diabetes [facility] Social History Social Habit Start Date Stop Date Quantity Comments Source History of tobacco 1968-01-[address] [facility] - use 00:00:00 day smoker Medical Center History SDOH [facility] - Alcohol Binge [facility] [address] Sex Assigned At [facility] Cigarettes smoked 2019-04-14 2019-04-[address] [facility] - current (pack per 00:00:00 00:00:00 Medical Center day) - Reported Cigarette 2019-04-14 2019-04-[address] [facility] - pack-years 00:00:00 00:00:00 [facility] Alcohol Comment 2019-03-20 2019-03-20 4 cans of beer [facility]:00:00 every evening [address] History [facility] 2019-01-21 2019-01-[address] [facility] - Alcohol Frequency 00:00:00 00:00:00 Medical Center History [facility] 2019-01-21 2019-01-[address] [facility] - Alcohol Std Drinks 00:00:00 00:00:00 Medica l [facility] Tobacco Comment 2019-01-21 2019-01-[address] [facility] - 00:00:00 00:00:00 ready to quit Medical [address] smoking Smoking Status Start Date Stop Date Source Current every day smoker 2019-04-14 00:00:00 [facility] Medications Ordered Filled Start Stop Current Ordering Indication Dosage Frequency Signature Comments Components Source Medication Medication Date Date Medication? Clinician (SIG) Name Name gabapentin 2019- No 300mg [id number] Take [address] (NEURONTIN) 4-13 04-13 [id number] mg by [facility] - 300 MG 17:03: 00:00 3D mouth 3 Medical capsule 56 :00 (three) Center times daily. magnesium 2019- No 400mg QD Take [address] oxide - 04-13 mg by [facility] - (MAG-OX) 17:03: 00:00 mouth Medical 400 mg 56 :00 daily. [facility] (241.3 mg magnesium) tablet metOLazone 2019- No 5mg Q.5W Take [address] (ZAROXOLYN) - 04-13 by mouth Melvina es - 5 MG tablet 17:03: 00:00 twice a Me dical 55 :00 week On [facility] Sunday and Sunday . QUEtiapine 2019- No 12.5mg QD Take 12.[address] (SEROQUEL) 4-13 04-13 mg by [facility] - 25 MG 17:03: 00:00 mouth Medical tablet 55 :00 nightly. [facility] dilTIAZem 2020- No 120mg QD Take 120 [...] (241.3 mg magnesium) tablet gabapentin No 300mg Q.[id number] Take [address] (NEURONTIN) 04-25 [id number] mg by [facility] - 300 MG 14:21: [...] for 90 days. midodrine 2019- No 5mg [id number] Take [address] (PROAMATINE 04-25 [id number] tablet (5 [facility] - ) 5 MG [...] Center Heart rate 2019-06-09 20:05:00 90 /min [facility] Body temperature 2019-06-09 20:00:00 36.61 Stephanie [facility] Respiratory rate 2019-06-09 20:00:00 22 /min [facility] Oxygen saturation in 2019-06-09 20:00:00 98 /min [facility] Arterial blood by Medical Ce nter Pulse oximetry Body weight Measured 2019-06-09 06:00:00 71.1 kg [facility] BMI 2019-06-09 06:00:00 23.15 kg/m2 [facility] Body height 2019-06-02 06:00:00 175.3 cm [facility] Procedures Procedure Date / Time Performing Clinician Source Performed RHYTHM STRIP - SCAN 2019-07-02 12:50:08 Provider, [facility] REPORT OF PROCEDURE - 2019-07-02 12:50:05 Provider, [facility] RHYTHM STRIP - SCAN 2019-06-12 14:00:10 Provider, [facility] RHYTHM STRIP - SCAN 2019-06-12 14:00:08 Provider, [facility] POCT-GLUCOSE METER 2019-06-09 18:23:00 France Drake [facility] POCT-GLUCOSE METER 2019-06-09 12:40:00 France Drake [facility] COMPREHENSIVE METABOLIC 2019-06-09 11:30:00 France Drake [facility] POCT-GLUCOSE METER 2019-06-09 05:42:00 France Drake [facility] POCT-GLUCOSE METER 2019-06-08 23:32:00 France Drake [facility] POCT-GLUCOSE METER 2019-06-08 18:13:00 France Drake [facility] POCT-GLUCOSE METER 2019-06-08 05:26:00 France Drake [facility] POCT-GLUCOSE METER 2019-06-07 23:19:00 Vidal France Galvez [facility] POCT-GLUCOSE METER 2019-06-07 18:41:00 Vidal, [place] [facility] POCT-GLUCOSE METER 2019-06-07 17:14:00 Vidal, France Galvez [facility] POCT-GLUCOSE METER 2019-06-07 14:17:00 Vidal, France Galvez [facility] POCT-GLUCOSE METER 2019-06-07 06:16:00 Vidal, France Galvez [facility] POCT-GLUCOSE METER 2019-06-06 23:38:00 Vidal, [place] [facility] POCT-GLUCOSE METER 2019-06-06 17:48:00 Vidal, [place] [facility] POCT-GLUCOSE METER 2019-06-06 12:00:00 Vidal [facility] POCT-GLUCOSE METER 2019-06-06 05:44:00 Vidal France Galvez [facility] COMPREHENSIVE METABOLIC 2019-06-06 03:50:00 Vidal France Galvez [facility] POCT-GLUCOSE METER 2019-06-05 23:58:00 Vidal, [place] [facility] POCT-GLUCOSE METER 2019-06-05 16:45:00 Vidal [facility] POTASSIUM 2019-06-05 16:31:00 Vidal France Galvez [facility] POCT-GLUCOSE METER 2019-06-05 12:17:00 Vidal France Galvez [facility] BASIC METABOLIC PANEL (7) 2019-06-05 06:01:00 France Drake [facility] POCT-GLUCOSE METER 2019-06-05 06:01:00 Vidal [facility] POCT-GLUCOSE METER 2019-06-05 00:03:00 Vidal [facility] POCT-GLUCOSE METER 2019-06-04 17:43:00 Vidal [facility] XR ESOPH SWALLOW FUNCTION 2019-06-04 14:45:[address] [facility] POCT-GLUCOSE METER 2019-06-04 11:44:00 Vidal [facility] POCT-GLUCOSE METER 2019-06-04 06:06:00 Vidal [facility] COMPREHENSIVE METABOLIC 2019-06-04 05:15:00 Alberto, Lawsondaniel Ammy [facility] CBC W/PLT COUNT & AUTO 2019-06-04 05:15:00 Alberto, Ole Welleri C [facility] US ABDOMEN LIMITED 2019-06-04 02:10:00 Vidal [facility] POCT-GLUCOSE METER 2019-06-03 23:38:00 Vidal [facility] POCT-GLUCOSE METER 2019-06-03 17:47:00 Vidal [facility] AMMONIA 2019-06-03 14:56:00 Vidal [facility] POCT-GLUCOSE METER 2019-06-03 12:09:00 Vidal [facility] POCT-GLUCOSE METER 2019-06-03 06:21:00 Serafin Palafox [facility] COMPREHENSIVE METABOLIC 2019-06-03 05:25:00 AlbertoOle savage [facility] MAGNESIUM 2019-06-03 05:25:00 Serafin Palafox [facility] CBC W/PLT COUNT & AUTO 2019-06-03 05:25:00 Alberto, Lawsondaniel Ammy C [facility] POCT-GLUCOSE METER 2019-06-03 00:10:00 Serafin Palafox [facility] POCT-GLUCOSE METER 2019-06-02 17:53:00 Serafin Palafox [facility] BASIC METABOLIC PANEL (7) 2019-06-02 15:03:00 Serafin Palafox [facility] POCT-GLUCOSE METER 2019-06-02 12:29:00 Serafin Palafox [facility] BLOOD GAS, ARTERIAL 2019-06-02 08:15:00 Serafin Palafox [facility] POCT-GLUCOSE METER 2019-06-02 05:38:00 Serafin Palafox [facility] VANCOMYCIN LEVEL, TROUGH 2019-06-02 01:24:00 Val Mohr [facility] COMPREHENSIVE METABOLIC 2019-06-02 01:24:00 Alberto, [facility] MAGNESI[facility] 2019-06-02 01:24:00 Florencio Whitaker [facility] CBC W/PLT COUNT & AUTO 2019-06-02 01:24:00 Alberto, Ole Boyd [facility] POCT-GLUCOSE METER 2019-06-01 23:14:00 Alberto, [facility] ECHOCARDIOGRAM REPORT - SCAN 2019-06-01 21:20:04 ProviderUday lt [facility] POCT-GLUCOSE METER 2019-06-01 17:49:00 Alberto, [facility] 2D ECHO W/ DOPPLER 2019-06-01 14:50:21 Alberto, [facility] (CW/PW/COLOR) [facility] POCT-GLUCOSE METER 2019-06-01 11:54:00 Alberto, [facility] MRSA SCREEN 2019-06-01 10:47:00 aVl Mohr [facility] BASIC METABOLIC PANEL (7) 2019-06-01 10:46:00 Alberto, [facility] MAGNESIUM 2019-06-01 10:46:00 [facility] 2019-06-01 10:46:00 Alberto, [facility] CBC W/PLT COUNT & AUTO 2019-06-01 10:46:00 Alberto, [facility] POCT-GLUCOSE METER 2019-06-01 05:37:00 Alberto, [facility] POCT-GLUCOSE METER 2019-05-31 23:21:00 Alberto, [facility] POCT-GLUCOSE METER 2019-05-31 17:44:00 Alberto, [facility] POCT-GLUCOSE METER 2019-05-31 11:21:00 Alberto, [facility] PROTHROMBIN TIME/INR 2019-05-31 10:31:00 Manolo [facility] HEPATITIS PANEL, ACUTE 2019-05-31 08:24:00 Manolo [facility] VANCOMYCIN LEVEL, RANDOM 2019-05-31 08:23:00 John Mendenhall [facility] COMPREHENSIVE METABOLIC 2019-05-31 08:23:[address] [facility] PANEL [facility] B-TYPE NATRIURETIC FACTOR 2019-05-31 08:23:00 Manolo [facility] (BNP) [facility] CBC W/PLT COUNT & AUTO 2019-05-31 08:23:00 Manolo [facility] DIFFERENTIAL [facility] BLOOD CULTURE 2019-05-31 08:22:00 Manolo [facility] ECG 12-LEAD 2019-05-31 07:21:40 Manolo [facility] POCT-GLUCOSE METER 2019-05-31 05:54:00 Liza Horne [facility] SODIUM, RANDOM URINE 2019-05-31 03:26:00 Manolo [facility] UREA NITROGEN, RANDOM URINE 2019-05-31 03:26:00 Manolo [facility] CREATININE, RANDOM URINE 2019-05-31 03:26:00 Mnaolo [facility] BLOOD CULTURE 2019-05-31 00:25:00 French [facility] POCT-GLUCOSE METER 2019-05-30 23:51:00 Liza Horne [facility] XR CHEST 1 VIEW 2019-05-30 21:03:00 French, [facility] PORTABLE/BEDSIDE [facility] COMPREHENSIVE METABOLIC 2019-05-30 20:55:[address] [facility] PANEL [facility] PROTHROMBIN TIME/INR 2019-05-30 20:55:00 French [facility] CBC W/PLT COUNT & AUTO 2019-05-30 20:55:00 French [facility] DIFFERENTIAL [facility] ECG 12-LEAD 2019-05-30 19:25:56 Unknown, [facility] XR CHEST 2 VIEWS 2019-05-08 12:14:00 Adelaide Lambert [facility] RHYTHM STRIP - SCAN 2019-05-01 17:29:28 Provider, [facility] RHYTHM STRIP - SCAN 2019-04-28 15:01:14 Provider, [facility] RHYTHM STRIP - SCAN 2019-04-28 15:01:12 Provider, [facility] XR CHEST 1 VIEW 2019-04-25 06:45:[address] [facility] PORTABLE/BEDSIDE [facility] BASIC METABOLIC PANEL (7) 2019-04-25 04:52:00 Gustavo George [facility] MAGNESIUM 2019-04-25 04:52:00 Gustavo George [facility] PHOSPHORUS 2019-04-25 04:52:00 Gustavo George [facility] CBC W/PLT COUNT & AUTO 2019-04-25 04:52:00 Gustavo George [facility] XR CHEST 1 VIEW 2019-04-24 06:56:00 Josh, [facility] PORTABLE/BEDSIDE Medical [facility] BASIC METABOLIC PANEL (7) 2019-04-24 04:11:00 Gustavo George [facility] MAGNESIUM 2019-04-24 04:11:00 Gustavo George [facility] PHOSPHORUS 2019-04-24 04:11:00 Gustavo George [facility] CBC W/PLT COUNT & AUTO 2019-04-24 04:11:00 Gustavo George [facility] XR CHEST 1 VIEW 2019-04-23 13:57:[address] [facility]/BEDSIDE [facility] XR CHEST 1 VIEW 2019-04-23 06:31:00 Josh [facility] BASIC METABOLIC PANEL (7) 2019-04-23 03:53:00 Gustavo George [facility] MAGNESIUM 2019-04-23 03:53:00 Gustavo George [facility] PHOSPHORUS 2019-04-23 03:53:00 Gustavo George [facility] PREALBUMIN 2019-04-23 03:53:00 [facility] W/PLT COUNT & AUTO 2019-04-23 03:53:00 Gustavo George [facility] XR ESOPH SWALLOW FUNCTION 2019-04-22 14:30:00 Yonathan Mccarcken [facility] - W/CINE VIDEO [facility] XR CHEST 1 VIEW 2019-04-22 05:49:00 Josh [facility] BASIC METABOLIC PANEL (7) 2019-04-22 04:02:00 Gustavo George [facility] MAGNESIUM 2019-04-22 04:02:00 Gustavo George [facility] PHOSPHORUS 2019-04-22 04:02:00 Gustavo George [facility] CBC W/PLT COUNT & AUTO 2019-04-22 03:23:00 Gustavo George [facility] BASIC METABOLIC PANEL (7) 2019-04-21 12:23:00 Enoch Chung [facility] MAGNESIUM 2019-04-21 12:23:[address] [facility] XR CHEST 1 VIEW 2019-04-21 03:59:[address] [facility] PORTABLE/BEDSIDE Medical [facility] BASIC METABOLIC PANEL (7) 2019-04-21 03:43:00 Gustavo George Christie [facility] MAGNESIUM 2019-04-21 03:43:00 Gustavo George Christie [facility] PHOSPHORUS 2019-04-21 03:43:00 Gustavo George Christie [facility] CBC W/PLT COUNT & AUTO 2019-04-21 03:42:00 Gustavo George Christie VENKAT [facility] BASIC METABOLIC PANEL (7) 2019-04-20 15:19:00 Zhao Moreno [facility] PHOSPHORUS 2019-04-20 15:19:00 Josh [facility] MAGNESIUM 2019-04-20 15:19:00 Sheldon [facility] CBC W/PLT COUNT & AUTO 2019-04-20 15:19:00 Zhao Moreno [facility] POCT-GLUCOSE METER 2019-04-20 12:17:00 Fernando Andrews [facility] XR CHEST 1 VIEW 2019-04-20 05:50:[address] [facility] PORTABLE/BEDSIDE [facility] BASIC METABOLIC PANEL (7) 2019-04-20 03:21:00 Zhao Moreno [facility] PHOSPHORUS 2019-04-20 03:21:00 [facility] 2019-04-20 03:21:00 Sheldon [facility] CBC W/PLT COUNT & AUTO 2019-04-20 03:21:00 [facility] POCT-GLUCOSE METER 2019-04-20 00:07:00 Fernando Andrews [facility] TRANSFUSION SERVICE REPORT - 2019-04-19 18:02:04 Provider, Uday macias [facility] BASIC METABOLIC PANEL (7) 2019-04-19 17:34:00 Josh, [facility] PHOSPHORUS 2019-04-19 17:34:00 Josh [facility] MAGNESIUM 2019-04-19 17:34:00 Sheldon [facility] CBC W/PLT COUNT & AUTO 2019-04-19 17:34:00 [facility] XR CHEST 1 VIEW 2019-04-19 05:48:00 [facility] PORTABLE/BEDSIDE [facility] BASIC METABOLIC PANEL (7) 2019-04-19 03:26:00 Zhao Moreno [facility] PHOSPHORUS 2019-04-19 03:26:00 [facility] MAGNESIUM 2019-04-19 03:26:00 [facility] W/PLT COUNT & AUTO 2019-04-19 03:26:00 [facility] POCT-GLUCOSE METER 2019-04-19 00:23:00 Fernando Andrews [facility] PREPARE LEUKO-REDUCED RBC 2019-04-18 23:54:[address] [facility] POCT-GLUCOSE METER 2019-04-18 18:27:00 Fernando Andrews [facility] TRANSFUSION SERVICE REPORT - 2019-04-18 18:02:42 Provider, Uday macias [facility] BASIC METABOLIC PANEL (7) 2019-04-18 18:02:00 Zhao Moreno [facility] PHOSPHORUS 2019-04-18 18:02:00 [facility] MAGNESIUM 2019-04-18 18:02:00 [facility] CBC W/PLT COUNT & AUTO 2019-04-18 18:02:00 Josh Zhao [facility] POCT-GLUCOSE METER 2019-04-18 11:46:00 Fernando Andrews [facility] POCT-GLUCOSE METER 2019-04-18 05:54:00 Fernando Andrews [facility] XR CHEST 1 VIEW 2019-04-18 05:36:00 Josh [facility] PORTABLE/BEDSIDE Medical Center BLOOD GAS, ARTERIAL 2019-04-18 02:37:00 Josh [facility] BASIC METABOLIC PANEL (7) 2019-04-18 02:36:00 [facility] 2019-04-18 02:36:00 Josh [facility] MAGNESIUM 2019-04-18 02:36:00 [facility] CBC W/PLT COUNT & AUTO 2019-04-18 02:36:00 Josh [facility] POCT-GLUCOSE METER 2019-04-18 00:19:00 Fernando Andrews [facility] POCT-GLUCOSE METER 2019-04-17 18:30:00 Fernando Andrews [facility] TRANSFUSION SERVICE REPORT - 2019-04-17 17:52:04 Uday Wilkes lt [facility] BLOOD GAS, ARTERIAL 2019-04-17 16:17:00 Josh [facility] BASIC METABOLIC PANEL (7) 2019-04-17 16:16:00 Josh Zhao [facility] PHOSPHORUS 2019-04-17 16:16:00 Josh, [facility] MAGNESIUM 2019-04-17 16:16:00 Sheldon [facility] CBC W/PLT COUNT & AUTO 2019-04-17 16:16:00 [facility] POCT-GLUCOSE METER 2019-04-17 13:14:00 Fernando Andrews [facility] TRANSFUSE LEUKO-REDUCED RED 2019-04-17 11:41:[address] [facility] BLOOD CELLS [facility] XR CHEST 1 VIEW 2019-04-17 06:07:00 Josh [facility]/BEDSIDE [facility] POCT-GLUCOSE METER 2019-04-17 05:32:00 Fernando Andrews [facility] BLOOD GAS, ARTERIAL 2019-04-17 03:30:00 [facility] BASIC METABOLIC PANEL (7) 2019-04-17 03:30:00 Josh [facility] PHOSPHORUS 2019-04-17 03:30:00 [facility] PROTHROMBIN TIME/INR 2019-04-17 03:30:00 [facility] APTT 2019-04-17 03:30:00 Josh [facility] MAGNESIUM 2019-04-17 03:30:[address] [facility] CBC W/PLT COUNT & AUTO 2019-04-17 03:30:00 [facility] HEMOGLOBIN AND HEMATOCRIT 2019-04-17 00:27:00 Celestina Estrada [facility] POCT-GLUCOSE METER 2019-04-17 00:10:00 Fernando Andrews [facility] PREPARE CRYOPRECIPITATE 2019-04-16 23:54:00 Sean [facility] PREPARE PLASMA 2019-04-16 23:54:00 Sean [facility] PREPARE LEUKO-REDUCED RBC 2019-04-16 23:54:00 Enoch Chung [facility] PERIPHERAL VASCULAR REPORT - 2019-04-16 21:23:26 Uday Wilkes lt [facility] POCT-GLUCOSE METER 2019-04-16 18:48:00 Fernando Andrews [facility] TRANSFUSION SERVICE REPORT - 2019-04-16 17:52:48 Uday Wilkes lt [facility] BLOOD GAS, ARTERIAL 2019-04-16 16:02:00 [facility] PHOSPHORUS 2019-04-16 16:02:00 [facility] BASIC METABOLIC PANEL (7) 2019-04-16 16:02:00 Enoch Chung [facility] CBC W/PLT COUNT & AUTO 2019-04-16 16:02:00 [facility] POCT-GLUCOSE METER 2019-04-16 13:24:00 Fernando Andrews [facility] HEMOGLOBIN AND HEMATOCRIT 2019-04-16 09:09:00 Sean [facility] XR CHEST 1 VIEW 2019-04-16 03:46:00 [facility] PORTABLE/BEDSIDE Medical Center MAGNESIUM 2019-04-16 03:28:00 Antonio Grace [facility] BASIC METABOLIC PANEL (7) 2019-04-16 03:28:00 [facility] PHOSPHORUS 2019-04-16 03:28:00 [facility] PROTHROMBIN TIME/INR 2019-04-16 03:28:00 [facility] APTT 2019-04-16 03:28:00 [facility] CALCIUM, IONIZED 2019-04-16 03:28:00 Sean [facility] CBC W/PLT COUNT & AUTO 2019-04-16 03:28:00 [facility] BLOOD GAS, ARTERIAL 2019-04-16 03:24:00 [facility] TRANSFUSE LEUKO-REDUCED RED 2019-04-16 01:54:16 Sean [facility] BLOOD CELLS [facility] POCT-GLUCOSE METER 2019-04-15 23:14:00 Fernando Andrews [facility] CBC W/PLT COUNT & AUTO 2019-04-15 22:51:00 Celestina Estrada [facility] TRANSFUSE LEUKO-REDUCED RED 2019-04-15 21:45:24 Yonathan Mccracken [facility] TRANSFUSION SERVICE REPORT - 2019-04-15 18:08:22 Provider, Uday macias [facility] US GUIDE, VASCULAR ACCESS 2019-04-15 17:48:17 Enoch Chung [facility] BLOOD GAS, ARTERIAL 2019-04-15 16:04:00 [facility] BASIC METABOLIC PANEL (7) 2019-04-15 16:03:00 Zhao Moreno [facility] PHOSPHORUS 2019-04-15 16:03:00 Zhao Moreno [facility] CBC W/PLT COUNT & AUTO 2019-04-15 16:03:00 Zhao Moreno [facility] Kunal [facility] TRANSFUSE LEUKO-REDUCED RED 2019-04-15 14:21:08 Enoch Chung [facility] XR CHEST 1 VIEW 2019-04-15 14:01:00 Enoch Chung [facility]/BEDSIDE [facility] VENOUS DOPPLER ARM, LEFT 2019-04-15 11:30:[address] [facility] THROMBOELASTOGRAPH (TEG) 2019-04-15 11:28:00 Enoch Chung [facility] POCT-GLUCOSE METER 2019-04-15 11:22:00 Fernando Andrews [facility] TRANSFUSE PLASMA 2019-04-15 11:03:06 Celestina Estrada [facility] ECG 12-LEAD 2019-04-15 10:36:36 Unknown, Hl7 [facility] ECG 12-LEAD 2019-04-15 10:35:51 Lucio Guillory [facility] TRANSFUSE CRYOPRECIPITATE 2019-04-15 09:22:40 Celestina Estrada [facility] CBC W/PLT COUNT & AUTO 2019-04-15 08:52:[address] [facility] TRANSFUSE LEUKO-REDUCED RED 2019-04-15 [facility]56[facility]REDUCED RED 2019-04-15 06:24[facility] 2019-04-15 04:38:00 Josh [facility] PORTABLE[facility]BEDSIDE [facility] BLOOD GAS, ARTERIAL 2019-04-15 04:07:00 Josh [facility] MAGNESIUM 2019-04-15 04:05:00 Antonio Grace [facility] BASIC METABOLIC PANEL (7) 2019-04-15 04:05:00 AparnaamYahaira Sangita [facility] PHOSPHORUS 2019-04-15 04:05:00 Josh [facility] LACTIC ACID, ARTERIAL 2019-04-15 04:05:00 Sean [facility] CALCIUM, IONIZED 2019-04-15 04:05:00 Sean [facility] CBC W/PLT COUNT & AUTO 2019-04-15 04:05:00 Sean [facility] TRANSFUSE LEUKO-REDUCED RED 2019-04-15 03:39:38 Sean [facility] TRANSFUSE LEUKO-REDUCED RED 2019-04-15 02:17:38 Sean [facility] PROTHROMBIN TIME/INR 2019-04-15 01:58:00 Josh [facility] PT/APTT 2019-04-15 01:58:00 Sean [facility] FIBRINOGEN 2019-04-15 01:58:00 [facility] POCT-GLUCOSE METER 2019-04-15 00:23:00 Bharti Kamara [facility] CORTISOL 2019-04-15 00:07:00 Jude Stewart [facility] CBC W/PLT COUNT & AUTO 2019-04-15 00:07:00 TerryJude [facility] DIFFERENTIAL [facility] XR CHEST 1 VIEW 2019-04-14 20:32:00 Josh [facility] PORTABLE/BEDSIDE [facility] Center BLOOD GAS, ARTERIAL 2019-04-14 20:00:00 Elma Estradanya [facility] MAGNESIUM 2019-04-14 19:57:00 Josh [facility] PHOSPHORUS 2019-04-14 19:57:00 [facility] CALCIUM, IONIZED 2019-04-14 19:57:00 [facility] FUNGUS CULTURE + SMEAR 2019-04-14 18:48:03 DarrylFernando [facility] AFB CULTURE + SMEAR 2019-04-14 18:48:[address] [facility] (NON-SPUTUM) [facility] BRONCHIAL CULTURE + GRAM 2019-04-14 18:48:[address] [facility] [place] [place] SPIN/CONCENTRATION CHARGE 2019-04-14 18:48:00 Fernando Andrews [facility] CALCIUM, IONIZED 2019-04-14 17:49:02 Elham Holguin [facility] BLOOD GAS, ARTERIAL 2019-04-14 17:49:02 Elham Holguin [facility] SODIUM NA-STAT LAB 2019-04-14 17:49:02 Elham Holguin [facility] POTASSIUM-STAT LAB 2019-04-14 17:49:02 Elham Holguin [facility] GLUCOSE-STAT LAB 2019-04-14 17:49:02 Elham Holguin [facility] HGB/HCT (H&H) - STAT LAB 2019-04-14 17:49:02 Elham Holguin [facility] AFB CULTURE + SMEAR 2019-04-14 17:15:20 Darryl, Fernando [facility] (NON-SPUTUM) [facility] ANAEROBIC CULTURE 2019-04-14 17:15:20 [facility] FUNGUS CULTURE + SMEAR 2019-04-14 17:15:[address] [facility] [address] [facility] SURGICALLY OBTAINED CULTURE 2019-04-14 17:15:20 [facility] + GRAM STAIN [facility] AFB CULTURE + SMEAR 2019-04-14 17:10:41 [facility] (NON-SPUTUM) [facility] ANAEROBIC CULTURE 2019-04-14 17:10:41 [facility] FUNGUS CULTURE + SMEAR 2019-04-14 17:10:[address] [facility] SURGICALLY OBTAINED CULTURE 2019-04-14 17:10:41 [facility] + GRAM STAIN [facility] AFB CULTURE + SMEAR 2019-04-14 17:08:01 DarrylFernando [facility] (NON-SPUTUM) [facility] ANAEROBIC CULTURE 2019-04-14 17:08:01 [facility] CULTURE 2019-04-14 17:08:01 Fernando Andrews [facility] + GRAM STAIN [facility] FUNGUS CULTURE + SMEAR 2019-04-14 17:08:[address] [facility] AFB CULTURE + SMEAR 2019-04-14 17:00:33 [facility] ANAEROBIC CULTURE 2019-04-14 17:00:33 DarrylAlanwn [facility] FUNGUS CULTURE + SMEAR 2019-04-14 17:00:[address] [facility] SURGICALLY OBTAINED CULTURE 2019-04-14 17:00:33 DarrylFernando [facility] - + GRAM STAIN [facility] TISSUE EXAM 2019-04-14 16:54:00 Fernando Andrews [facility] CALCIUM, IONIZED 2019-04-14 16:30:09 Elham Holguin [facility] BLOOD GAS, ARTERIAL 2019-04-14 16:30:09 Elham Holguin [facility] SODIUM NA-STAT LAB 2019-04-14 16:30:09 Elham Holguin [facility] POTASSIUM-STAT LAB 2019-04-14 16:30:09 Elham Holguin [facility] GLUCOSE-STAT LAB 2019-04-14 16:30:09 Elham Holguin [facility] HGB/HCT (H&H) - STAT LAB 2019-04-14 16:30:09 Elham Holguin [facility] CYTOLOGY 2019-04-14 15:48:00 Fernando Andrews [facility] SURGICALLY OBTAINED CULTURE 2019-04-14 15:41:33 Fernando Andrews [facility] - + GRAM STAIN [facility] AFB CULTURE + SMEAR 2019-04-14 15:41:33 [facility] FUNGUS CULTURE + SMEAR 2019-04-14 15:41:[address] [facility] ANAEROBIC CULTURE 2019-04-14 15:41:33 [facility], IONIZED 2019-04-14 15:24:34 Elham Holguin [facility] BLOOD GAS, ARTERIAL 2019-04-14 15:24:34 Elham Holguin [facility] SODIUM NA-STAT LAB 2019-04-14 15:24:34 Elham Holguin [facility] POTASSIUM-STAT LAB 2019-04-14 15:24:34 Elham Holguin [facility] GLUCOSE-STAT LAB 2019-04-14 15:24:34 Elham Holguin [facility] HGB/HCT (H&H) - STAT LAB 2019-04-14 15:24:34 Elham Holguin [facility] THORACOSCOPY 2019-04-14 13:25:[address] [facility] (VATS),DECORTICATION Medical [address] ter BRONCHOSCOPY 2019-04-14 13:25:00 Fernando Andrews [facility] ECG 12-LEAD 2019-04-14 12:19:58 Unknown, Hl7 [facility] XR CHEST 1 VIEW 2019-04-14 10:05:[address] [facility] PORTABLE/BEDSIDE [facility] MAGNESIUM 2019-04-14 01:01:00 Antonio Grace [facility] PHOSPHORUS 2019-04-14 01:01:00 Antonio Grace [facility] BASIC METABOLIC PANEL (7) 2019-04-14 01:01:00 Aparna [facility] PROTHROMBIN TIME/INR 2019-04-14 01:01:00 Aparna [facility] COMPREHENSIVE METABOLIC 2019-04-14 01:01:00 Zhao Moreno [facility] TYPE AND SCREEN, AUTOMATED 2019-04-14 01:01:00 Aparna [facility] CBC W/PLT COUNT & AUTO 2019-04-14 01:01:00 Antonio Grace [facility] POCT-GLUCOSE METER 2019-04-13 19:57:00 Nalam [facility] POCT-GLUCOSE METER 2019-04-13 17:17:00 Nalam, [facility] POCT-GLUCOSE METER 2019-04-13 11:52:00 [facility], [facility] XR CHEST 1 VIEW 2019-04-13 08:26:[address] [facility] PORTABLE/BEDSIDE [facility] POCT-GLUCOSE METER 2019-04-13 05:58:00 Nal, [facility] CBC W/PLT COUNT & AUTO 2019-04-13 04:50:00 Antonio Grace [facility] MAGNESIUM 2019-04-13 04:39:00 Antonio Grace [facility] PHOSPHORUS 2019-04-13 04:39:00 Antonio Grace [facility] BASIC METABOLIC PANEL (7) 2019-04-13 04:39:00 Nalam, [facility] HEPATIC FUNCTION PANEL 2019-04-13 04:39:00 Nalam, [facility] APTT 2019-04-13 04:29:00 Britton Renee [facility] POCT-GLUCOSE METER 2019-04-12 17:20:00 Nalam, [facility] POCT-GLUCOSE METER 2019-04-12 12:05:00 [facility], [facility] XR CHEST 1 VIEW 2019-04-12 06:43:00 Yonathan Mccracken [facility] - PORTABLE/BEDSIDE [facility] POCT-GLUCOSE METER 2019-04-12 05:21:00 Nalam, [facility] MAGNESIUM 2019-04-12 05:17:00 Antonio Grace [facility] PHOSPHORUS 2019-04-12 05:17:00 Sanjay Antonio Vladislav [facility] BASIC METABOLIC PANEL (7) 2019-04-12 05:17:00 [facility] CBC W/PLT COUNT & AUTO 2019-04-12 05:17:00 Antonio Grace [facility] POCT-GLUCOSE METER 2019-04-12 00:04:00 Nalam, [facility] POCT-GLUCOSE METER 2019-04-11 17:35:00 [facility], [facility] XR CHEST 1 VIEW 2019-04-11 13:04:00 Yonathan Mccracken [facility] - PORTABLE/BEDSIDE [facility] POCT-GLUCOSE METER 2019-04-11 12:09:00 Nalam, [facility] POCT-GLUCOSE METER 2019-04-11 10:39:00 [facility] RE[facility] OF [facility]EDURE - 2019-04-11 10:15:36 Mariana [facility] 2019-04-11 09:00:00 Gabriel Peña [facility]Formerly [facility] POCT-GLUCOSE METER 2019-04-11 07:01:00 [facility] 2019-04-11 05:28:00 Antonio Grace [facility] PHOSPHORUS 2019-04-11 05:28:00 Antonio Grace [facility] BASIC METABOLIC PANEL (7) 2019-04-11 05:28:00 [facility] PROTHROMBIN TIME/INR 2019-04-11 05:28:[address] [facility] CBC W/PLT COUNT & AUTO 2019-04-11 05:28:[address] [facility] POCT-GLUCOSE METER 2019-04-11 00:16:00 Namita [facility] POCT-GLUCOSE METER 2019-04-10 14:51:00 [facility] 1 VIEW 2019-04-10 09:16:00 Yonathan Mccracken [facility] - PORTABLE/BEDSIDE [facility] MAGNESIUM 2019-04-10 04:41:00 Antonio Grace [facility] PHOSPHORUS 2019-04-10 04:41:00 Antonio Grace [facility] BASIC METABOLIC PANEL (7) 2019-04-10 04:41:00 Namita [facility] CBC W/PLT COUNT & AUTO 2019-04-10 04:41:[address] [facility] POCT-GLUCOSE METER 2019-04-10 00:37:00 Aparnaam [facility] POCT-GLUCOSE METER 2019-04-09 17:19:00 Aparna, [facility] XR ESOPH SWALLOW FUNCTION 2019-04-09 13:56:00 [facility], [facility] - /CINE [facility] BODY FLUID CULTURE + GRAM 2019-04-09 12:10:00 Yonathan Mccracken [facility] POCT-GLUCOSE METER 2019-04-09 11:47:00 Nalam, [facility] POCT-GLUCOSE METER 2019-04-09 09:21:00 Nalam, [facility] XR CHEST 1 VIEW 2019-04-09 06:51:00 Yonathan Mccracken [facility] POCT-GLUCOSE METER 2019-04-09 06:16:00 Aparnaam, [facility] MAGNESIUM 2019-04-09 05:32:00 Sanjay [facility] PHOSPHORUS 2019-04-09 05:32:00 Sanjay [facility] BASIC METABOLIC PANEL (7) 2019-04-09 05:32:00 [facility] CBC W/PLT COUNT & AUTO 2019-04-09 05:32:[address] [facility] POCT-GLUCOSE METER 2019-04-09 01:56:[facility] PO[facility]SE METER 2019-04-08 17:45:00 [facility] POCT-GLUCOSE METER 2019-04-08 12:36:00 [facility], [facility] XR CHEST 1 VIEW 2019-04-08 06:25:[address] [facility] PORTABLE/[facility] POCT-GLUCOSE METER 2019-04-08 05:17:00 Nalam, [facility] MAGNESIUM 2019-04-08 04:12:00 Sanjay [facility] PHOSPHORUS 2019-04-08 04:12:00 Antonio Grace [facility] BASIC METABOLIC PANEL (7) 2019-04-08 04:12:00 [facility] W/PLT COUNT & AUTO 2019-04-08 04:12:00 Antonio Grace [facility] POCT-GLUCOSE METER 2019-04-08 00:22:00 Nalam [facility] BASIC METABOLIC PANEL (7) 2019-04-07 18:08:00 Sean Bates [facility] POCT-GLUCOSE METER 2019-04-07 17:36:00 Nalam, [facility] POCT-GLUCOSE METER 2019-04-07 11:35:00 Nalam, [facility] XR CHEST 1 VIEW 2019-04-07 11:21:00 Britton Dixon [facility] - PORTABLE/BEDSIDE [facility] XR CHEST 1 VIEW 2019-04-07 09:52:00 Yonathan Mccracken [facility] - PORTABLE/BEDSIDE [facility] POCT-GLUCOSE METER 2019-04-07 06:38:00 Nalam, [facility] MAGNESIUM 2019-04-07 06:07:00 Antonio Grace [facility] PHOSPHORUS 2019-04-07 06:07:00 Antonio Grace [facility] BASIC METABOLIC PANEL (7) 2019-04-07 06:07:00 Sean Bates [facility] CBC W/PLT COUNT & AUTO 2019-04-07 06:07:00 LisacarlitaAntonio yañez [facility] POCT-GLUCOSE METER 2019-04-06 23:48:00 Hal, [facility] POCT-GLUCOSE METER 2019-04-06 17:17:00 Hal, [facility] BASIC METABOLIC PANEL (7) 2019-04-06 16:40:00 Sean Bates [facility] POCT-GLUCOSE METER 2019-04-06 12:37:00 Hal, [facility] XR CHEST 1 VIEW 2019-04-06 06:49:[address] [facility] PORT[facility]/BEDSIDE [facility] MAGNESIUM 2019-04-06 06:33:00 CombithsAntonio [facility] PHOSPHORUS 2019-04-06 06:33:00 Combiths [facility] BASIC METABOLIC PANEL (7) 2019-04-06 06:33:00 Jana [facility] CBC W/PLT COUNT & AUTO 2019-04-06 06:33:[address] [facility] POCT-GLUCOSE METER 2019-04-06 05:15:00 Hal, [facility] BASIC METABOLIC PANEL (7) 2019-04-05 16:43:00 Jana, [facility] POCT-GLUCOSE METER 2019-04-05 11:21:00 Hal, [facility] MAGNESIUM 2019-04-05 04:50:00 Combiths [facility] PHOSPHORUS 2019-04-05 04:50:00 Combiths [facility] BASIC METABOLIC PANEL (7) 2019-04-05 04:50:00 Jana [facility] CBC W/PLT COUNT & AUTO 2019-04-05 04:50:[address] [facility] XR CHEST 1 VIEW 2019-04-05 01:58:00 Nawaf [facility] PORTABLE/BEDSIDE [facility] POCT-GLUCOSE METER 2019-04-04 23:42:00 Hal, [facility] POCT-GLUCOSE METER 2019-04-04 17:43:00 Hal, [facility] BASIC METABOLIC PANEL (7) 2019-04-04 16:28:00 Jana, [facility] XR ABDOMEN / KUB 1 VIEW 2019-04-04 15:58:00 Buddy Ford [facility] XR ABDOMEN / KUB 1 VIEW 2019-04-04 15:39:00 Britton Aj [facility] POCT-GLUCOSE METER 2019-04-04 12:09:00 Hal, [facility] XR CHEST 1 VIEW 2019-04-04 08:30:[address] [facility] PORTABLE/BEDSIDE [facility] POCT-GLUCOSE METER 2019-04-04 05:29:00 Hal, [facility] MAGNESIUM 2019-04-04 04:42:00 Antonio Grace [facility] PHOSPHORUS 2019-04-04 04:42:00 Antonio Grace [facility] BASIC METABOLIC PANEL (7) 2019-04-04 04:42:00 Sean Bates [facility] CBC W/PLT COUNT & AUTO 2019-04-04 04:42:00 Antonio Grace [facility] POCT-GLUCOSE METER 2019-04-03 23:54:00 Hal, [facility] POCT-GLUCOSE METER 2019-04-03 17:02:00 Hal, [facility] BASIC METABOLIC PANEL (7) 2019-04-03 15:27:00 Sean Bates [facility] MAGNESIUM 2019-04-03 15:27:00 Carlos Alberto Caraballo [facility] POCT-GLUCOSE METER 2019-04-03 12:07:00 Jean Marie [facility] POCT-GLUCOSE METER 2019-04-03 05:53:00 Jean Marie [facility] XR CHEST 1 VIEW 2019-04-03 05:14:[address] [facility] PORTABLE/BEDSIDE [facility] MAGNESIUM 2019-04-03 02:13:00 Antonio Grace [facility] PHOSPHORUS 2019-04-03 02:13:00 Antonio Grace [facility] BASIC METABOLIC PANEL (7) 2019-04-03 02:13:00 Jana, Sean Jamie [facility] CBC W/PLT COUNT & AUTO 2019-04-03 02:13:00 Antonio Grace [facility] POCT-GLUCOSE METER 2019-04-02 23:54:00 Jean Marie [facility] APTT 2019-04-02 22:44:00 [facility] POCT-GLUCOSE METER 2019-04-02 17:26:00 Jean Marie [facility] BASIC METABOLIC PANEL (7) 2019-04-02 16:42:00 Sean Bates [facility] APTT 2019-04-02 16:42:00 [facility] POCT-GLUCOSE METER 2019-04-02 12:20:00 Jean Marie [facility] APTT 2019-04-02 08:12:00 [facility] XR CHEST 1 VIEW 2019-04-02 06:02:00 Carlos Alberto Caraballo [facility] - PORTABLE/BEDSIDE [facility] POCT-GLUCOSE METER 2019-04-02 05:34:00 Jean Marie [facility] APTT 2019-04-02 01:20:00 [facility] BLOOD GAS, ARTERIAL 2019-04-02 01:19:00 Lucio Guill[facility] MAGNESIUM 2019-04-02 01:18:00 Antonio Grace [facility] PHOSPHORUS 2019-04-02 01:18:00 Antonio Grace [facility] BASIC METABOLIC PANEL (7) 2019-04-02 01:18:00 Sean Bates [facility] CBC W/PLT COUNT & AUTO 2019-04-02 01:18:00 Antonio Grace [facility] POCT-GLUCOSE METER 2019-04-01 23:48:00 Jean Marie [facility] BASIC METABOLIC PANEL (7) 2019-04-01 19:06:00 Sean Bates [facility] APTT 2019-04-01 18:47:00 [facility]ma [facility] POCT-GLUCOSE METER 2019-04-01 17:51:00 [facility] PO[facility]SE METER 2019-04-01 11:41:00 Jean [facility] APTT 2019-04-01 11:07:00 Britton Renee [facility] POCT-GLUCOSE METER 2019-04-01 06:26:00 Jean Marie [facility] XR CHEST 1 VIEW 2019-04-01 05:07:[address] [facility] PORTABLE/BEDSIDE [facility] BLOOD GAS, ARTERIAL 2019-04-01 03:25:00 Lucio Guill[facility] MAGNESIUM 2019-04-01 03:23:00 Antonio Grace [facility] PHOSPHORUS 2019-04-01 03:23:00 Antonio Grace [facility] BASIC METABOLIC PANEL (7) 2019-04-01 03:23:00 Sean Bates [facility] APTT 2019-04-01 03:23:00 Thelma [facility] CBC W/PLT COUNT & AUTO 2019-04-01 03:23:00 Antonio Grace [facility] POCT-GLUCOSE METER 2019-03-31 23:51:00 Jean Marie [facility] APTT 2019-03-31 22:13:00 Nemdeion [facility] APTT 2019-03-31 19:52:00 Thelma [facility] POCT-GLUCOSE METER 2019-03-31 18:08:00 [facility] 2019-03-31 13:59:00 Carrol Burroughs [facility] COMPREHENSIVE METABOLIC 2019-03-31 13:59:00 Carrol Burroughs [facility] PT/APTT 2019-03-31 13:59:00 Carrol Burroughs [facility] MAGNESIUM 2019-03-31 13:59:00 NoCarrol moreau [facility] PHOSPHORUS 2019-03-31 13:59:00 NooriCarrol mckeon [facility] LACTIC ACID, VENOUS 2019-03-31 13:59:00 Lucio Guillory [facility] BASIC METABOLIC PANEL (7) 2019-03-31 13:59:00 Sean Bates [facility] APTT 2019-03-31 13:59:00 Britton Renee [facility] POCT-GLUCOSE METER 2019-03-31 11:50:00 Laya [facility] XR ABDOMEN / KUB 1 VIEW 2019-03-31 11:33:00 Britton Renee [facility] TROPONIN I 2019-03-31 09:12:00 Lucio Guillory [facility] BLOOD GAS, ARTERIAL 2019-03-31 06:42:00 Lucio Guillory [facility] APTT 2019-03-31 06:42:00 Britton Renee [facility] POCT-GLUCOSE METER 2019-03-31 05:40:00 Laya [facility] XR CHEST 1 VIEW 2019-03-31 05:29:[address] [facility] PORTABLE/BEDSIDE [facility] APTT 2019-03-31 04:20:00 Britton Renee [facility] BLOOD GAS, ARTERIAL 2019-03-31 03:52:00 Lucio Guillory [facility] LACTIC ACID, VENOUS 2019-03-31 03:51:00 Carrol Burroughs [facility] MAGNESIUM 2019-03-31 03:51:00 Antonio Grace [facility] PHOSPHORUS 2019-03-31 03:51:00 SanjayAntonio [facility] BASIC METABOLIC PANEL (7) 2019-03-31 03:51:00 Sean Bates [facility] CBC W/PLT COUNT & AUTO 2019-03-31 03:51:00 SanjayAntonio Vladislav [facility] B-TYPE NATRIURETIC FACTOR 2019-03-31 01:30:00 Carrol Burroughs [facility] (BNP) [facility] LACTIC ACID, VENOUS 2019-03-31 01:30:00 [facility]OPONIN I 2019-03-31 01:30:00 Pastora [facility] POCT-GLUCOSE METER 2019-03-31 00:17:00 [facility] PE TEST DESIGN 2019-03-30 23:54:[address] [facility] IV CONTRAST 2019-03-30 23:54:00 Lucio Guillory [facility] POCT-BLOOD GASES, ARTERIAL 2019-03-30 20:53:[address] [facility] POCT-SODIUM 2019-03-30 20:53:00 [facility] PO[facility]-POTASSIUM 2019-03-30 20:53:00 Laya [facility]ares [facility] POCT-GLUCOSE 2019-03-30 20:53:00 [facility] POCT-CALCIUM IONIZED 2019-03-30 20:53:[address] [facility] POCT-HEMATOCRIT 2019-03-30 20:53:00 [facility] POCT-HEMOGLOBIN 2019-03-30 20:53:00 [facility] COMPREHENSIVE METABOLIC 2019-03-30 20:44:00 Carrol Burroughs [facility] TROPONIN I 2019-03-30 20:44:00 Manjeet Carrol Stephens [facility] MAGNESIUM 2019-03-30 20:44:00 Manjeet Carrol Stephens [facility] PHOSPHORUS 2019-03-30 20:44:00 [facility] LACTIC ACID, VENOUS 2019-03-30 20:44:00 Britton Zamudio [facility] CBC W/PLT COUNT & AUTO 2019-03-30 20:44:00 Manjeet Carrol Stephens [facility] XR CHEST 1 VIEW 2019-03-30 20:34:[address] [facility] PORTABLE/BEDSIDE [facility] APTT 2019-03-30 17:57:00 Britton Renee [facility] POCT-GLUCOSE METER 2019-03-30 17:54:00 [facility] BASIC METABOLIC PANEL (7) 2019-03-30 15:46:00 Sean Bates [facility] APTT 2019-03-30 12:08:00 Britton Renee [facility] POCT-GLUCOSE METER 2019-03-30 11:49:00 Laya [facility] XR CHEST 1 VIEW 2019-03-30 07:47:[address] [facility] PORTABLE/BEDSIDE [facility] APTT 2019-03-30 06:32:00 Britton Renee [facility] POCT-GLUCOSE METER 2019-03-30 05:55:00 [facility] MAGNESIUM 2019-03-30 04:31:00 Antonio Grace [facility] PHOSPHORUS 2019-03-30 04:31:00 Antonio Grace [facility] BASIC METABOLIC PANEL (7) 2019-03-30 04:31:00 Sean Bates eph [facility] APTT 2019-03-30 04:31:00 Britton Reene [facility] CBC W/PLT COUNT & AUTO 2019-03-30 04:31:00 Antonio Grace [facility] POCT-GLUCOSE METER 2019-03-30 00:16:00 [facility] METER 2019-03-29 18:14:00 [facility] BASIC METABOLIC PANEL (7) 2019-03-29 12:20:00 Buddy Ford [facility] POCT-GLUCOSE METER 2019-03-29 12:18:00 [facility] POCT-GLUCOSE METER 2019-03-29 06:00:00 [facility] CHEST 1 VIEW 2019-03-29 04:42:[address] [facility] PORTABLE/BEDSIDE [facility] APTT 2019-03-29 03:33:00 Britton Renee [facility] MAGNESIUM 2019-03-29 03:30:00 Antonio Grace [facility] PHOSPHORUS 2019-03-29 03:30:00 Antonio Grace [facility] BASIC METABOLIC PANEL (7) 2019-03-29 03:30:00 Sean Bates [facility] CBC W/PLT COUNT & AUTO 2019-03-29 03:30:00 Antonio Grace [facility] POCT-GLUCOSE METER 2019-03-29 00:23:00 [facility] VANCOMYCIN LEVEL, TROUGH 2019-03-28 20:25:00 Alexandrea Hoffman [facility] APTT 2019-03-28 20:25:00 Britton Renee [facility] POCT-GLUCOSE METER 2019-03-28 17:33:00 [facility] BASIC METABOLIC PANEL (7) 2019-03-28 16:03:00 Sean Bates [facility] APTT 2019-03-28 14:03:00 Britton Renee [facility] POCT-GLUCOSE METER 2019-03-28 12:26:00 Laya Tabares [facility] CYTOLOGY 2019-03-28 08:03:00 Britton Renee [facility] APTT 2019-03-28 06:30:00 Britton Renee [facility] MAGNESIUM 2019-03-28 04:21:00 Antonio Grace [facility] PHOSPHORUS 2019-03-28 04:21:00 Antonio Grace [facility] BASIC METABOLIC PANEL (7) 2019-03-28 04:21:00 Sean Bates [facility] APTT 2019-03-28 04:21:00 Britton Renee [facility] CBC W/PLT COUNT & AUTO 2019-03-28 04:21:00 Antonio Grace [facility] XR CHEST 1 VIEW 2019-03-28 03:24:00 Sean Bates [facility]/BEDSIDE [facility] POCT-GLUCOSE METER 2019-03-28 00:13:00 Laya Tabares [facility] POCT-GLUCOSE METER 2019-03-27 17:40:00 Laya Tabares [facility] BASIC METABOLIC PANEL (7) 2019-03-27 16:05:00 Sean Bates [facility] APTT 2019-03-27 12:05:00 Britton Renee [facility] POCT-GLUCOSE METER 2019-03-27 11:31:00 Laya Tabares [facility] APTT 2019-03-27 05:34:00 Britton Renee [facility] POCT-GLUCOSE METER 2019-03-27 05:05:00 Laya Tabares [facility] MAGNESIUM 2019-03-27 04:32:00 Antonio Grace [facility] PHOSPHORUS 2019-03-27 04:32:00 Antonio Grace [facility] BASIC METABOLIC PANEL (7) 2019-03-27 04:32:00 Sean Bates [facility] CBC W/PLT COUNT & AUTO 2019-03-27 04:32:00 Antonio Grace [facility] XR CHEST 1 VIEW 2019-03-27 03:54:00 Sean Bates [facility]/BEDSIDE [facility] ECHOCARDIOGRAM REPORT - SCAN 2019-03-26 21:11:42 Uday Wilkes lt [facility] APTT 2019-03-26 20:13:00 Britton Renee [facility] IR DRAINAGE CATHETER CHANGE 2019-03-26 19:30:00 Yonathan Mccracken [facility] POCT-GLUCOSE METER 2019-03-26 18:20:00 Laya Tabares [facility] BASIC METABOLIC PANEL (7) 2019-03-26 17:33:00 Britton Renee [facility] APTT 2019-03-26 12:53:00 Britton Renee [facility] POCT-GLUCOSE METER 2019-03-26 11:54:00 Laya Tabares [facility] APTT 2019-03-26 10:27:00 Britton Renee [facility] POCT-GLUCOSE METER 2019-03-26 06:42:00 Laya Tabares [facility] XR CHEST 1 VIEW 2019-03-26 03:58:00 Artur Ariza [facility] BLOOD GAS, ARTERIAL 2019-03-26 03:08:00 Antonio Grace [facility] MAGNESIUM 2019-03-26 03:00:00 Antonio Grace [facility] PHOSPHORUS 2019-03-26 03:00:00 Antonio Grace [facility] BASIC METABOLIC PANEL (7) 2019-03-26 03:00:00 Tomer Lora [facility] APTT 2019-03-26 03:00:00 Britton Renee [facility] CBC W/PLT COUNT & AUTO 2019-03-26 03:00:00 Antonio Grace [facility] POCT-GLUCOSE METER 2019-03-26 00:02:00 Laya Tabares [facility] BASIC METABOLIC PANEL (7) 2019-03-25 20:05:00 Tomer Lora [facility] 2D ECHO W/ DOPPLER 2019-03-25 19:04:[address] [facility] ([facility]/PW/COLOR[facility] POCT-GLUCOSE METER 2019-03-25 18:10:00 Laya Tabares [facility] CHEST WITHOUT IV CONTRAST 2019-03-25 18:00:00 [facility] Cely [facility] CT ABDOMEN/PELVIS WITHOUT IV 2019-03-25 18:00:00 [facility] XR CHEST 1 VIEW 2019-03-25 16:10:00 GucciBritton [facility]/BEDSIDE [facility] APTT 2019-03-25 15:30:00 [facility] BASIC METABOLIC PANEL (7) 2019-03-25 11:46:00 Tomer Lora [facility] BLOOD GAS, ARTERIAL 2019-03-25 11:43:00 Broderick Nieto I [facility] POCT-GLUCOSE METER 2019-03-25 11:40:00 Laya Tabares [facility] APTT 2019-03-25 09:33:00 GucciBritton [facility] BLOOD CULTURE 2019-03-25 09:32:00 [facility] Mackey [facility] SPUTUM CULTURE + GRAM STAIN 2019-03-25 09:08:00 Dread Renee [facility] URINE CULTURE 2019-03-25 09:08:00 Britton Renee [facility] URINALYSIS W/ REFLEX URINE 2019-03-25 09:08:00 Steve Renee [facility] ECG 12-LEAD 2019-03-25 08:09:17 Britton Renee [facility] POCT-GLUCOSE METER 2019-03-25 06:06:00 Laya Tabares [facility] XR CHEST 1 VIEW 2019-03-25 04:03:00 Artur Ariza [facility] MAGNESIUM 2019-03-25 03:30:00 Antonio Grace [facility] PHOSPHORUS 2019-03-25 03:30:00 Antonio Grace [facility] BASIC METABOLIC PANEL (7) 2019-03-25 03:30:00 Tomer Lora [facility] APTT 2019-03-25 03:09:00 Britton Renee [facility] CBC W/PLT COUNT & AUTO 2019-03-25 03:09:00 Antonio Grace [facility] POCT-GLUCOSE METER 2019-03-25 00:01:00 Laya Tabares [facility] BASIC METABOLIC PANEL (7) 2019-03-24 20:31:00 Tomer Lora [facility] APTT 2019-03-24 20:31:00 Britton Renee [facility] POCT-GLUCOSE METER 2019-03-24 18:07:00 Laya Tabares [facility] XR CHEST 1 VIEW 2019-03-24 17:12:00 Aurelio Cassidy [facility]/BEDSIDE [facility] XR ABDOMEN / KUB 1 VIEW 2019-03-24 17:12:00 Aurelio Cassidy [facility] BASIC METABOLIC PANEL (7) 2019-03-24 12:36:00 Tomer Lora [facility] APTT 2019-03-24 12:36:00 Britton Renee [facility] POCT-GLUCOSE METER 2019-03-24 12:17:00 Laya Tabares [facility] BLOOD GAS, ARTERIAL 2019-03-24 12:04:00 Gerson Vonnierocio Ponce [facility] I [facility] EEG EXTENDED MONITORING 40 - 2019-03-24 11:23:[address] [facility] 60 MINUTES [facility] POCT-GLUCOSE METER 2019-03-24 05:58:00 Tomer Lora [facility] BLOOD GAS, ARTERIAL 2019-03-24 04:29:00 Fredi Acosta [facility] APTT 2019-03-24 04:25:00 Britton Renee [facility] MAGNESIUM 2019-03-24 04:10:00 Antonio Grace [facility] PHOSPHORUS 2019-03-24 04:10:00 Antonio Grace [facility] BASIC METABOLIC PANEL (7) 2019-03-24 04:10:00 Tomer Lora [facility] CBC W/PLT COUNT & AUTO 2019-03-24 04:10:00 Antonio Grace [facility] XR CHEST 1 VIEW 2019-03-24 03:00:00 Artur Ariza [facility] CT BRAIN WITHOUT IV CONTRAST 2019-03-24 01:12:00 Fredi Acosta [facility] POCT-GLUCOSE METER 2019-03-24 00:05:00 Tomer Lora [facility] VANCOMYCIN LEVEL, TROUGH 2019-03-23 23:59:00 Lina Adkins [facility] BASIC METABOLIC PANEL (7) 2019-03-23 19:44:00 Tomer Lora [facility] BASIC METABOLIC PANEL (7) 2019-03-23 15:55:00 Tomer Lora [facility] HEPATIC FUNCTION PANEL 2019-03-23 15:55:00 Tomer Lora [facility] AMMONIA 2019-03-23 15:55:00 Artur Ariza [facility] MAGNESIUM 2019-03-23 05:58:00 Antonio Grace [facility] PHOSPHORUS 2019-03-23 05:58:00 Antonio Grace [facility] BASIC METABOLIC PANEL (7) 2019-03-23 05:58:00 Tomer Lora [facility] APTT 2019-03-23 05:58:00 [facility] BLOOD GAS, ARTERIAL 2019-03-23 05:58:00 Essie [facility] CBC W/PLT COUNT & AUTO 2019-03-23 05:58:00 Antonio Grace [facility] (CELLAVISION MANUAL DIFF) 2019-03-23 05:58:00 Antonio Grace [facility] POCT-GLUCOSE METER 2019-03-23 05:24:00 Tomer Lora [facility] POCT-GLUCOSE METER 2019-03-23 00:09:00 Tomer Lora [facility] APTT 2019-03-22 23:35:00 Britton Renee [facility] BASIC METABOLIC PANEL (7) 2019-03-22 20:05:00 Tomer Lora [facility] PT/APTT 2019-03-22 17:15:00 Tomer Lora [facility] AFB CULTURE + SMEAR 2019-03-22 14:37:[address] [facility] (NON-SPUTUM) [facility] BODY FLUID CELL COUNT WITH 2019-03-22 14:37:00 Tomer Lora [facility] FUNGUS CULTURE + SMEAR 2019-03-22 14:37:00 Tomer Lora [facility] SPIN/CONCENTRATION CHARGE 2019-03-22 14:37:00 Tomer Lora [facility] ADENOSINE DEAMINASE, FLUID 2019-03-22 14:36:00 Tomer Lora [facility] BODY FLUID CULTURE + GRAM 2019-03-22 14:36:[address] [facility] [place] [place] GLUCOSE PLEURAL FLUID 2019-03-22 14:36:00 Tomer Lora [facility] LACTATE DEHYDROGENASE (LD), 2019-03-22 14:36:00 Tomer Lora Ba [facility] PH, BODY FLUID 2019-03-22 14:36:00 Tomer Lora [facility] PROTEIN, TOTAL, PLEURAL 2019-03-22 14:36:00 Tomer Lora [facility] TRIGLYCERIDES, PLEURAL FLUID 2019-03-22 14:36:00 Tomer Lora [facility] ADENOSINE DEAMINASE, FLUID 2019-03-22 14:35:00 Tomer Lora [facility] AFB CULTURE + SMEAR 2019-03-22 14:35:[address] [facility] (NON-SPUTUM) [facility] ALBUMIN PLEURAL FLUID 2019-03-22 14:35:00 Tomer Lora [facility] BODY FLUID CELL COUNT WITH 2019-03-22 14:35:00 Tomer Lora [facility] BODY FLUID CULTURE + GRAM 2019-03-22 14:35:[address] [facility] [place] [place] FUNGUS CULTURE + SMEAR 2019-03-22 14:35:00 Tomer Lora [facility] GLUCOSE PLEURAL FLUID 2019-03-22 14:35:00 Tomer Lora [facility] LACTATE DEHYDROGENASE (LD), 2019-03-22 14:35:00 Tomer Lora Ba [facility] PROTEIN, TOTAL, PLEURAL 2019-03-22 14:35:00 Tomer Lora [facility] PH, BODY FLUID 2019-03-22 14:35:00 Tomer Lora [facility] TRIGLYCERIDES, PLEURAL FLUID 2019-03-22 14:35:00 Tomer Lora [facility] BRONCHIAL CULTURE + GRAM 2019-03-22 14:32:00 Tomer Lora ra [facility] [place] [place] FUNGUS CULTURE + SMEAR 2019-03-22 14:32:00 Tomer Lora [facility] LEGIONELLA CULTURE 2019-03-22 14:32:00 Tomer Lora [facility] AFB CULTURE + SMEAR 2019-03-22 14:32:00 Tomer Lora CH, I [facility] (NON-SPUTUM) [facility] SPIN/CONCENTRATION CHARGE 2019-03-22 14:32:00 Tomer Lora [facility] BLOOD CULTURE 2019-03-22 09:35:00 Britton Renee [facility] BASIC METABOLIC PANEL (7) 2019-03-22 09:35:00 Tomer Lora [facility] APTT 2019-03-22 09:35:00 Britton Renee [facility] XR CHEST 1 VIEW 2019-03-22 08:09:[address] [facility] PORTABLE/BEDSIDE Medical Center POCT-GLUCOSE METER 2019-03-22 05:53:00 Tomer Lora [facility] VANCOMYCIN LEVEL, TROUGH 2019-03-22 01:58:00 Josh Keri [facility] MAGNESIUM 2019-03-22 01:58:00 Antonio rGace [facility] PHOSPHORUS 2019-03-22 01:58:00 Antonio Grace [facility] BASIC METABOLIC PANEL (7) 2019-03-22 01:58:00 Tomer Lora [facility] CBC W/PLT COUNT & AUTO 2019-03-22 01:58:00 Antonio Grace [facility] POCT-GLUCOSE METER 2019-03-22 00:30:00 Tomer Lora [facility] BASIC METABOLIC PANEL (7) 2019-03-21 21:52:00 Tomer Lora [facility] TRANSFUSION SERVICE REPORT - 2019-03-21 21:06:03 Provider, Uday macias [facility] BODY FLUID CULTURE + GRAM 2019-03-21 19:34:00 Broderick Nieto [facility] BODY FLUID CELL COUNT WITH 2019-03-21 19:10:00 [facility] FUNGUS CULTURE + SMEAR 2019-03-21 19:10:00 [facility] PH, BODY FLUID 2019-03-21 19:10:00 [facility]ore [facility] PROTEIN, TOTAL, PLEURAL 2019-03-21 19:10:00 [facility]erson [facility] TRIGLYCERIDES, PLEURAL FLUID 2019-03-21 19:10:00 Patricia Nieto [facility] ALBUMIN PLEURAL FLUID 2019-03-21 19:09:00 [facility] GLUCOSE PLEURAL FLUID 2019-03-21 19:09:00 [facility] LACTATE DEHYDROGENASE (LD), 2019-03-21 19:09:00 Devon Nieto [facility] US DRAINAGE CHEST WITH TUBE 2019-03-21 18:25:00 Tomer Lora Ba [facility] MRSA SCREEN 2019-03-21 08:50:00 Britton Renee [facility] RAPID INFLUENZA A&B SCREEN 2019-03-21 08:50:00 Tomer Lora [facility] RESPIRATORY PANEL [facility] 2019-03-21 08:50:00 Tomer Lora [facility] RETICULOCYTE COUNT 2019-03-21 08:50:00 Tomer Lora [facility] FERRITIN 2019-03-21 08:49:00 Tomer Lora [facility] IRON, TIBC, % SAT. (WITHOUT 2019-03-21 08:49:00 Tomer Lora Baara [facility] LACTATE DEHYDROGENASE (LDH) 2019-03-21 08:49:00 [facility] VIT[facility] B12 AND FOLATE 2019-03-21 08:49:00 Tomer Lora [facility] BASIC METABOLIC PANEL (7) 2019-03-21 08:49:00 Tomer Lora [facility] MAGNESIUM 2019-03-21 08:49:00 Tomer Lora [facility] POCT-GLUCOSE METER 2019-03-21 05:34:00 Tomer Lora [facility] US ABDOMEN LIMITED 2019-03-21 03:55:00 Antonio [facility] MAGNESIUM 2019-03-21 02:03:00 Antonio Grace [facility] PHOSPHORUS 2019-03-21 02:03:00 Antonio Grace [facility] CBC W/PLT COUNT & AUTO 2019-03-21 02:03:00 Antonio Grace [facility] (CELLAVISION MANUAL DIFF) 2019-03-21 02:03:00 Antonio Grace [facility] BASIC METABOLIC PANEL (7) 2019-03-21 00:18:00 Broderick Nieto [facility] MAGNESIUM 2019-03-21 00:18:00 Antonio Grace [facility] POCT-GLUCOSE METER 2019-03-20 23:46:00 Tomer Lora [facility] ECHOCARDIOGRAM REPORT - SCAN 2019-03-20 21:22:37 Uday Wilkes lt [facility] POCT-GLUCOSE METER 2019-03-20 18:11:00 Tomer Lora [facility] BLOOD GAS, ARTERIAL 2019-03-20 16:34:00 Britton Renee [facility] BASIC METABOLIC PANEL (7) 2019-03-20 16:33:00 Broderick Nieto [facility] MAGNESIUM 2019-03-20 16:33:00 Antonio Grace [facility] VANCOMYCIN LEVEL, TROUGH 2019-03-20 12:58:00 Britton Renee [facility] ECG 12-LEAD 2019-03-20 12:42:24 Unknown, Hl7 [facility] POCT-GLUCOSE METER 2019-03-20 12:14:00 Guido Tomer [facility] 2D ECHO W/ DOPPLER 2019-03-20 11:05:52 Tomer Lora [facility] (CW/PW/COLOR) [facility] CT CHEST WITHOUT IV CONTRAST 2019-03-20 10:45:00 Aden Renee [facility] SPUTUM CULTURE + GRAM STAIN 2019-03-20 06:31:00 Antonio Grace [facility] TROPONIN I 2019-03-20 05:49:00 Antonio Grace [facility] ABORH, MANUAL 2019-03-20 05:48:00 Trista Salmeron [facility] POCT-GLUCOSE METER 2019-03-20 05:44:00 Tomer Lora [facility] XR CHEST 1 VIEW 2019-03-20 04:05:00 Antonio Grace [facility]/BEDSIDE Medical Center BLOOD GAS, ARTERIAL 2019-03-20 03:14:00 Sanjay [facility] BLOOD CULTURE 2019-03-20 03:08:00 Sanjay Antonio Vladislav [facility] VANCOMYCIN LEVEL, RANDOM 2019-03-20 03:00:00 Antonio Grace [facility] B-TYPE NATRIURETIC FACTOR 2019-03-20 03:00:00 Antonio Grace [facility] (BNP) [facility] HEMOGLOBIN A1C 2019-03-20 03:00:00 Sanjay [facility] TSH/FREE T4 IF INDICATED 2019-03-20 03:00:00 Sanjay Antonio Vladislav [facility] PROTHROMBIN TIME/INR 2019-03-20 03:00:00 Sanjay [facility] PT/APTT 2019-03-20 03:00:00 Combiths [facility] LACTIC ACID, VENOUS 2019-03-20 03:00:00 Comb[facility], [facility] FIBRINOGEN 2019-03-20 03:00:00 Carlees [facility] TYPE AND SCREEN, AUTOMATED 2019-03-20 03:00:00 Sanjay [facility] BASIC METABOLIC PANEL (7) 2019-03-20 02:59:00 [facility] HEPATIC FUNCTION PANEL 2019-03-20 02:59:00 Comb[facility], [facility] MAGNESIUM 2019-03-20 02:59:00 [facility] PHOSPHORUS 2019-03-20 02:59:00 [facility] TROPONIN I 2019-03-20 02:59:00 [facility] LIPID PANEL 2019-03-20 02:59:00 [facility] CBC W/PLT COUNT & AUTO 2019-03-20 02:59:[address] [facility] LEGIONELLA URINE ANTIGEN 2019-03-20 02:23:00 Combiths [facility] URINE CULTURE 2019-03-20 02:22:00 Sanjay [facility] SODIUM, RANDOM URINE 2019-03-20 02:22:00 Combiths [facility] CHLORIDE, RANDOM URINE 2019-03-20 02:22:00 [facility] CREATININE, RANDOM URINE 2019-03-20 02:22:00 [facility] UREA NITROGEN, RANDOM URINE 2019-03-20 02:22:00 [facility] PROTEIN, RANDOM URINE 2019-03-20 02:22:00 [facility] OSMOLALITY, URINE 2019-03-20 02:22:00 Combiths Antonio [facility] URINALYSIS W/ REFLEX URINE 2019-03-20 02:22:00 Antonio Grace [facility] POCT-GLUCOSE METER 2019-03-20 00:39:00 Tomer Lora [facility] ECG 12-LEAD 2019-03-20 00:28:11 Unknown, Hl7 [facility] REPORT OF PROCEDURE - 2019-01-28 13:40:05 Provider, Default [facility] ENDOSCOPY SCAN Scanning [facility] RHYTHM STRIP - SCAN 2019-01-28 13:40:02 Provider, [facility] BASIC METABOLIC PANEL (7) 2019-01-24 04:31:00 Josue Rich [facility] MAGNESIUM 2019-01-24 04:31:00 Jose [facility] PHOSPHORUS 2019-01-24 04:31:00 Jose [facility] CBC W/PLT COUNT & AUTO 2019-01-24 04:31:00 Josue Rich [facility] TROPONIN I 2019-01-23 21:59:00 [facility] ECHOC[facility] REPORT - SCAN 2019-01-23 21:21:25 ProviderUday [facility] TROPONIN I 2019-01-23 16:02:00 Josue Rich [facility] TSH/FREE T4 IF INDICATED 2019-01-23 10:13:00 [facility]OP[facility] 2019-01-23 10:13:00 Josue Rich [facility] B-TYPE NATRIURETIC FACTOR 2019-01-23 10:13:[address] [facility] (BNP) [facility] ECG 12-LEAD 2019-01-23 09:00:[address] [facility] MRA HEAD WITHOUT IV CONTRAST 2019-01-23 08:01:00 Josue Rich [facility] BASIC METABOLIC PANEL (7) 2019-01-23 04:59:00 Josue Rich CH, I [facility] MAGNESIUM 2019-01-23 04:59:00 Josue Rich [facility] CBC W/PLT COUNT & AUTO 2019-01-23 04:59:00 Josue Rich [facility] POTASSIUM 2019-01-22 19:43:00 Josue Rich [facility] MR BRAIN WITHOUT IV CONTRAST 2019-01-22 18:11:00 Aden [facility] CTA BRAIN 2019-01-22 16:59:00 [facility] 2019-01-22 16:59:00 Laureano [facility] 2D ECHO W/ DOPPLER 2019-01-22 13:16[facility] LIPID PANEL 2019-01-22 04:17:00 [facility] HEMOGLOBIN A1C 2019-01-22 04:17:00 [facility] TROPONIN I 2019-01-22 04:17:00 [facility] MAGNESIUM 2019-01-22 04:17:00 Hilario Josue [facility] BASIC METABOLIC PANEL (7) 2019-01-21 23:26:00 [facility] TROPONIN I 2019-01-21 23:26:00 [facility] TSH/FREE T4 IF INDICATED 2019-01-21 23:26:00 Iris Freeman [facility] RPR 2019-01-21 23:26:00 Iris Freeman [facility] VITAMIN B12 AND FOLATE 2019-01-21 23:26:00 Iris Freeman [facility] PROTHROMBIN TIME/INR 2019-01-21 23:26:00 rIis Freeman [facility] CBC W/PLT COUNT & AUTO 2019-01-21 23:26:00 Britton Hamilton [facility] XR CHEST 1 VIEW 2019-01-21 23:19:00 Iris Freeman [facility] - PORTABLE/BEDSIDE Medical Center Plan of Care Planned Activity Planned Date Details Comments Source Future Scheduled 2019-10-28 INFLUENZA VACCINE (#1) [facility] 00:00:00 [code = INFLUENZA Medical Ce nter VACCINE (#1)] Future Scheduled [address] [facility] - Test 00:00:00 2-64 YEARS AT RISK (1 [facility] 1 - PPSV23) [code = PNEUMOCOCCAL VACCINE 2-64 YEARS AT RISK (1 of 1 - PPSV23)] Future Scheduled 1955 COLON CANCER SCREENING [facility] Test 00:00:00 COLONOSCOPY [code = [facility] COLON CANCER SCREENING COLONOSCOPY] Encounters Start End Encounter Admission Attending Care Care Encounter Source Date/Time Date/Time Type Type Clinicians Facility Department ID 2019-08-20 2019-08-20 Refill Feli [facility] [id number] 00:00:00 00:00:00 Kinjal Figueroa [id number] Latta [id number] [facility] [id number] [address] 2019-08-08 2019-08-08 Orders Doctor HYACINTH [id number] 00:00:00 00:00:00 Only Unassigned, MARIO [id number] [facility]lippin [facility] [id number] 2019-08-07 2019-08-07 Office Feli [facility] [id number] 13:49:25 22:20:07 Visit Kinjal Figueroa [id number] Latta [id number] Professlili [id number] [address] 2019-05-08 2019-05-08 Office CORNELL Andrews [id number] 10:44:48 16:34:59 Visit Fernando AMBULATOR [id number] Y [id number] Results Test Description Test Time Test Comments Results Result Comments Source POC-Glucose meter 2019-06-09 18:49:00 Test Item Value Reference Range Interpretation Comme nts POC-Glucose Meter (test code = 72 mg/dL 70-110 : TESTED AT [facility] [address] [facility] 1538) [facility], 770 30: Nutrition And Dietetics Instructor/Techni aaron ID = [id number] for ONESIMO RYAN Lab Interpretation (test code = Normal 39480-2) [facility] [id number] 18:49:00 Test Item Value Reference Range Interpretation Comments POC-GLUCOSE METER 72 mg/dL 70-110 : TESTED A T [facility] 6720 (BEAKER) (test code = ILDA Calvert [facility], 1538) [address]: Nutrition And Dietetics Instructor/Techni aaron ID = [id number] for RYAN NICE POCT-GLUCOSE [id number] 13:07:00 Test Item Value Reference Range Interpretation Comments POC-GLUCOSE METER 83 mg/dL 70-110 : TESTED A T [facility] 6720 (BEAKER) (test code = [facility] R [facility], 1538) [address]: Nutrition And Dietetics Instructor/Techni aaron ID = [id number] for RYAN NICE Comprehensive metabolic [id number] 12:12:00 Test Item Value Reference Range Interpretation Comments Protein, Total (test 6.7 6.0- 8.3 gm/dL Speci men slightly code = 2885-2) hemolyzed Albumin (test code = 2.1 g/dL 3.5-5 L Specime n slightly 94064-1) hemolyzed Alkaline Phosphatase 202 U/L 40-150 H (test code = 6768-6) Total Bilirubin (test 1.2 mg/dL 0.2-1.2 Specim en slightly code = 1975-2) hemolyzed Sodium (test code = 142 meq/L 874-685 0937-2) Potassium (test code = 4.4 meq/L 3.5-5.1 [...] (test code = 7.9 mg/dL 8.4-10.2 L 33402-8) AST (test code = 77 U/L 5-34 H Specimen sl ightly 1920-8) hemolyzed ALT (test code = 86 U/L 6-55 H Specimen sl ightly 1742-6) hemolyzed EGFR (test code = 103 mL/min/1.73 [place] [address]-6) NOT ACCURATE CREATININE CLEARANCE IN PREDICTING GLOMERULAR FILTRATION RATE . ESTIMATED GFR I S NOT APPLICABLE FOR DIALYSIS PATIENTS. DORI (test code = DORI) Nutrition And Dietetics Instructor ID - ELISSA M Lab Interpretation Abnormal (test code = 16414-8) [facility] HospitalCOMPREHENSIVE METABOLIC [id number] 12:12:00 Test Item Value Reference Range Interpretation [...] S NOT APPLICABLE FOR DIALYSIS PATIEN TS. Nutrition And Dietetics Instructor ID - ELISSA MPOCT-GLUCOSE [id number] 06:17:00 Test Item Value Reference Range Interpretation Comments POC-GLUCOSE METER 105 mg/dL 70-110 : TESTED A T [facility] 6720 ([facility]) (test code = [facility], [facility]) [address]: Nutrition And Dietetics Instructor/Techni aaron ID = [id number] for DO MINGUEZ, ELIDIA POCT-GLUCOSE [id number] 23:52:00 Test Item Value Reference Range Interpretation Comments POC-GLUCOSE METER 97 mg/dL 70-110 : TESTED A T [facility] 6720 ([facility]) (test code = [facility], [facility]) [address]: Nutrition And Dietetics Instructor/Techni aaron ID = [id number] for DULCE BELLO, ELIDIA POCT-GLUCOSE [id number] 18:31:00 Test Item Value Reference Range Interpretation Comments POC-GLUCOSE METER 102 mg/dL 70-110 : TESTED A T [facility] 6720 ([facility]) (test code = [facility], [facility]) [address]: Nutrition And Dietetics Instructor/Techni aaron ID = [id number] for CO RTEZ, JOSY POCT-GLUCOSE [id number] 17:27:00 Test Item Value Reference Range Interpretation Comments POC-GLUCOSE METER 106 mg/dL 70-110 : TESTED A T [facility] 6720 ([facility]) (test code = [facility], [facility]) [address]: Nutrition And Dietetics Instructor/Techni aaron ID = [id number] for RA JANY, LATOYA POCT-GLUCOSE [id number] 23:31:00 Test Item Value Reference Range Interpretation Comments POC-GLUCOSE METER 101 mg/dL 70-110 : TESTED A T [facility] 6720 (BEAKER) (test code = [facility], 153) [address]: Nutrition And Dietetics Instructor/Techni aaron ID = [id number] for RA GLAND, LATOYA POCT-GLUCOSE [id number] 18:53:00 Test Item Value Reference Range Interpretation Comments POC-GLUCOSE METER 89 mg/dL 70-110 : TESTED A T [facility] 6720 (BEAKER) (test code [facility], [address]: = 1538) Nutrition And Dietetics Instructor/Techni aaron ID = [id number] for JAX CARDOSO POCT-GLUCOSE [id number] 17:25:00 Test Item Value Reference Range Interpretation Comments POC-GLUCOSE METER 67 mg/dL 70-110 L : TESTED A T [facility] 6720 (BEAKER) (test code = [facility], 153) [address]: Nutrition And Dietetics Instructor/Techni aaron ID = [id number] for DE LA ROSA-DELUNA, KIRSTEN POCT-GLUCOSE [id number] 14:28:00 Test Item Value Reference Range Interpretation Comments POC-GLUCOSE METER 88 mg/dL 70-110 : TESTED A T [facility] 6720 (BEAKER) (test code = [facility], 153) [address]: Nutrition And Dietetics Instructor/Techni aaron ID = [id number] for DE LA ROSA-DELUNA, KIRSTEN POCT-GLUCOSE [id number] 06:27:00 Test Item Value Reference Range Interpretation Comments POC-GLUCOSE METER 101 mg/dL 70-110 : TESTED A T [facility] 6720 (BEAKER) (test code = [facility], 1538) [address]: Nutrition And Dietetics Instructor/Techni aaron ID = [id number] for RA GLAND, LATOYA POCT-GLUCOSE [id number] 23:55:00 Test Item Value Reference Range Interpretation Comments POC-GLUCOSE METER 97 mg/dL 70-110 : TESTED A T [facility] 6720 (BEAKER) (test code = [facility], 153) [address]: Nutrition And Dietetics Instructor/Techni aaron ID = [id number] for RAGL AND, LATOYA POCT-GLUCOSE [id number] 17:59:00 Test Item Value Reference Range Interpretation Comments POC-GLUCOSE METER 92 mg/dL 70-110 : TESTED A T [facility] 6720 (BEAKER) (test code = [facility], 1538) [address]: Nutrition And Dietetics Instructor/Techni aaron ID = [id number] for Leeanna Norwood POCT-GLUCOSE [id number] 12:15:00 Test Item Value Reference Range Interpretation Comments POC-GLUCOSE METER 103 mg/dL 70-110 : TESTED A T [facility] 6720 (BEAKER) (test code = [facility], 1538) [address]: Nutrition And Dietetics Instructor/Techni aaron ID = [id number] for Leeanna Kelley POCT-GLUCOSE [id number] 05:55:00 Test Item Value Reference Range Interpretation Comments POC-GLUCOSE METER 105 mg/dL 70-110 : TESTED A T [facility] 6720 (BEAKER) (test code = [facility], 153) [address]: Nutrition And Dietetics Instructor/Techni aaron ID = [id number] for AHMET CASTELLANOS COMPREHENSIVE METABOLIC [id number] 04:31:00 Test Item Value Reference Range Interpretation [...] S NOT APPLICABLE FOR DIALYSIS PATIEN TS. Nutrition And Dietetics Instructor ID - SANDRA WPOCT-GLUCOSE [id number] 00:14:00 Test Item Value Reference Range Interpretation Comments POC-GLUCOSE METER 106 mg/dL 70-110 : TESTED A T [facility] 6720 (BEAKER) (test code = [facility], 1538) [address]: Nutrition And Dietetics Instructor/Techni aaron ID = [id number] for UE COSME, AHMET POCT-GLUCOSE [id number] 19:00:00 Test Item Value Reference Range Interpretation Comments POC-GLUCOSE METER 111 mg/dL 70-110 H : TESTED A T [facility] 6720 (BEAKER) (test code = [facility], 1538) [address]: Nutrition And Dietetics Instructor/Techni aaron ID = [id number] for CO RTEZ, JOSY POCT-GLUCOSE [id number] 17:05:00 Test Item Value Reference Range Interpretation Comments POC-GLUCOSE METER 101 mg/dL 70-110 : TESTED A T [facility] 6720 (BEAKER) (test code = [facility], 1538) [address]: Nutrition And Dietetics Instructor/Techni aaron ID = [id number] for CO RTEZ, JOSY [id number] 17:03:00 Test Item Value Reference Range Interpretation Comments Potassium (test code = 3.9 meq/L 3.5-5.1 2823-3) DORI (test code = DORI) Nutrition And Dietetics Instructor ID - BS Lab Interpretation (test Normal code = 34898-1) [facility] HospitalPOTASSIUM2020-04-[facility] 17:03:00 Test Item Value Reference Range Interpretation Comments POTASSIUM (BEAKER) (test code = 3.9 meq/L 3.5-5.1 379) Nutrition And Dietetics Instructor ID - BSBlood Culture - Routine (Right Venipuncture)2019-06-05 10:00:00 Test Item Value Reference Range Interpretation Comments Result (test code = No growth in 5 days 6463-4) [facility] HospitalBLOOD [id number] 10:00:00 Test Item Value Reference Range Interpretation Comments CULTURE (BEAKER) (test No growth in 5 days code = 1095) Basic Metabolic [id number] 06:28:00 Test Item Value Reference Range Interpretation Comments Sodium (test code = 145 meq/L 025-724 5769-2) Potassium (test code = 3.0 meq/L 3.5-5.1 L 2823-3) Chloride (test code = 101 meq/L 98-107 2075-0) CO2 (test code = 38 meq/L 22-29 H 2028-9) BUN (test code = 28 mg/dL 7-21 H 3094-0) Creatinine (test code 0.87 mg/dL 0.57-1.25 = 2160-0) Glucose (test code = 110 mg/dL 70-105 H 2345-7) Calcium (test code = 7.9 mg/dL 8.4-10.2 L 81131-1) EGFR (test code = 88 mL/min/1.73 [place] [address]-0) NOT ACCURATE CREATININE CLEARANCE IN PREDICTING GLOMERULAR FILTRATION RATE . ESTIMATED GFR I S NOT APPLICABLE FOR DIALYSIS PATIENTS. DORI (test code = DORI) Nutrition And Dietetics Instructor ID - PIAYA L Lab Interpretation Abnormal (test code = 44699-6) [facility] HospitalBASIC METABOLIC [id number] 06:28:00 Test Item Value Reference Range Interpretation [...] S NOT APPLICABLE FOR DIALYSIS PATIEN TS. Nutrition And Dietetics Instructor ID - PIAYA LPOCT-GLUCOSE [id number] 06:13:00 Test Item Value Reference Range Interpretation Comments POC-GLUCOSE METER 119 mg/dL 70-110 H : TESTED A T [facility] 6720 (BEAKER) (test code = [facility], 1538) [address]: Nutrition And Dietetics Instructor/Techni aaron ID = [id number] for UE COSME, AHMET BLOOD [id number] 03:01:00 Test Item Value Reference Range Interpretation Comments CULTURE ([facility]) (test No growth in 5 days code = 1095) POCT-GLUCOSE [id number] 00:16:00 Test Item Value Reference Range Interpretation Comments POC-GLUCOSE METER 92 mg/dL 70-110 : TESTED A T [facility] 6720 (BEAKER) (test code = [facility], 1538) [address]: Nutrition And Dietetics Instructor/Techni aaron ID = [id number] for UEMA RU, AHMET POCT-GLUCOSE [id number] 17:55:00 Test Item Value Reference Range Interpretation Comments POC-GLUCOSE METER 104 mg/dL 70-110 : TESTED A T [facility] 6720 (BEAKER) (test code = [facility], 1538) [address]: Nutrition And Dietetics Instructor/Techni aaron ID = [id number] for AN GULO, GEM FL, ESOPH, SWALLOW FUNCTION, WITH CINE OR [id number] 15:08:00Reason for exam:->dysphagiaFINAL REPORT EXAMINATION: Modified barium [...] Lucas Verified Date/Time: 06/04/2019 15:08:42 Reading Location: [address] Transitional Reading Room [place] esoph swallow funct with cine [id number] 15:08:00 Interface, External Ris In - 06/09/2019 [...] Lucas Verified Date/Time: 06/04/2019 15:08:42 Reading Location: [address] Transitional Reading Room Electronically signed by: FREDI LUCAS MDon 06/04/2019 03:[facility] [id number] 11:56:00 Test Item Value Reference Range Interpretation Comments POC-GLUCOSE METER 111 mg/dL 70-110 H : TESTED A T [facility] 6720 (BEAKER) (test code = [facility], 1538) [address]: Nutrition And Dietetics Instructor/Techni aaron ID = [id number] for AN GEM CUMMINGS POCT-GLUCOSE [id number] 06:18:00 Test Item Value Reference Range Interpretation Comments POC-GLUCOSE METER 110 mg/dL 70-110 : TESTED A T [facility] 6720 (BEAKER) (test code = [facility], 1538) [address]: Nutrition And Dietetics Instructor/Techni aaron ID = [id number] for DO ELIDIA SIMS COMPREHENSIVE METABOLIC [id number] 05:51:00 Test Item Value Reference Range Interpretation [...] S NOT APPLICABLE FOR DIALYSIS PATIEN TS. Nutrition And Dietetics Instructor ID - ELISSA MCBC with platelet count + automated [id number] 05:29:00 Test Item Value Reference Range Interpretation [...] 450 K/CU MM MPV (test code = 68512-3) 12.3 fL 9.4-12.4 nRBC (test code = [...] 2801) Lab Interpretation (test code = Abnormal 94838-8) [facility] W/PLT COUNT & AUTO [id number] 05:29:00 Test Item Value Reference Range Interpretation [...] (BEAKER) (test code = 2801) U/S, ABDOMINAL, [id number] 04:00:00Abdomen limited area? Add comment if clarification [...] Tyler MDReport Verified Date/Time:06/04/2019 04:00:37 US abdomen [id number] 04:00:00 Interface, External Ris In - 06/04/2019 [...] LFTs.Signed: Reji Tyler Verified Date/Time: 06/04/2019 04:00:37 [facility] [id number] 23:50:00 Test Item Value Reference Range Interpretation Comments POC-GLUCOSE METER 115 mg/dL 70-110 H : TESTED A T [facility] 6720 (BEAKER) (test code = [facility], 1538) [address]: Nutrition And Dietetics Instructor/Techni aaron ID = [id number] for CHANIELIDIA MACDONALD POCT-GLUCOSE [id number] 18:03:00 Test Item Value Reference Range Interpretation Comments POC-GLUCOSE METER 126 mg/dL 70-110 H : TESTED A T [facility] 6720 (BEAKER) (test code = [facility], 1538) [address]: Nutrition And Dietetics Instructor/Techni aaron ID = [id number] for CHAD, SHA LIZETTE [id number] 15:27:00 Test Item Value Reference Range Interpretation Comments Ammonia (test code = 82 18- 72 mol/L H 58919-2) DORI (test code = DORI) Nutrition And Dietetics Instructor ID - BS Lab Interpretation (test Abnormal code = 94228-9) [facility] HospitalAMMONIA2020-04-07 15:27:00 Test Item Value Reference Range Interpretation Comments AMMONIA (BEAKER) (test code = 348) 82 mol/L 18-72 H Nutrition And Dietetics Instructor ID - BSMRSA [id number] 12:47:00 Test Item Value Reference Range Interpretation Comments Result (test code = 6463-4) No MRSA isolated [facility] HospitalMRSA [id number] 12:47:00 Test Item Value Reference Range Interpretation Comments CULTURE (BEAKER) (test code No MRSA isolated = 1095) POCT-GLUCOSE [id number] 12:25:00 Test Item Value Reference Range Interpretation Comments POC-GLUCOSE METER 123 mg/dL 70-110 H : TESTED A T [facility] 6720 (BEAKER) (test code = [facility], 1538) [address]: Nutrition And Dietetics Instructor/Techni aaron ID = [id number] for ALAN BONILLA POCT-GLUCOSE [id number] 06:32:00 Test Item Value Reference Range Interpretation Comments POC-GLUCOSE METER 106 mg/dL 70-110 : TESTED A T [facility] 6720 (BEAKER) (test code = [facility], 1538) 26746: Nutrition And Dietetics Instructor/Techni aaron ID = [id number] for ELIDIA VALDES [id number] 06:13:00 Test Item Value Reference Range Interpretation Comments Magnesium (test code = 2.2 mg/dL 1.6-2.6 Speci men 07856-8) slightly hemolyzed DORI (test code = DORI) Nutrition And Dietetics Instructor ID - BS Lab Interpretation Normal (test code = 67337-5) [facility] HospitalMAGNESIUM2020-04-07 06:13:00 Test Item Value Reference Range Interpretation Comments MAGNESIUM (BEAKER) 2.2 mg/dL 1.6-2.6 Specimen slightly (test code = 627) hemolyzed Nutrition And Dietetics Instructor ID - BSCOMPREHENSIVE METABOLIC [id number] 06:13:00 Test Item Value Reference Range Interpretation [...] S NOT APPLICABLE FOR DIALYSIS PATIEN TS. Nutrition And Dietetics Instructor ID - BSCBC W/PLT COUNT & AUTO [id number] 05:58:00 Test Item Value Reference Range Interpretation [...] PERCENT (BEAKER) (test code = 2801) POCT-GLUCOSE [id number] 00:22:00 Test Item Value Reference Range Interpretation Comments POC-GLUCOSE METER 133 mg/dL 70-110 H : TESTED A T [facility] 6720 (BEAKER) (test code = ILDA Calvert [facility], 1538) [address]: Nutrition And Dietetics Instructor/Techni aaron ID = [id number] for ELIDIA VALDES POCT-GLUCOSE [id number] 18:09:00 Test Item Value Reference Range Interpretation Comments POC-GLUCOSE METER 129 mg/dL 70-110 H : TESTED A T [facility] 6720 (BEAKER) (test code = [facility] Enrike [facility], 1538) [address]: Nutrition And Dietetics Instructor/Techni aaron ID = [id number] for DE NNIS, RYAN BASIC METABOLIC [id number] 16:10:00 Test Item Value Reference Range Interpretation [...] S NOT APPLICABLE FOR DIALYSIS PATIEN TS. Nutrition And Dietetics Instructor ID - BSPOCT-GLUCOSE [id number] 12:41:00 Test Item Value Reference Range Interpretation Comments POC-GLUCOSE METER 120 mg/dL 70-110 H : TESTED A T [facility] 6720 (BEAKER) (test code = [facility] Enrike [facility], 1538) [address]: Nutrition And Dietetics Instructor/Techni aaron ID = [id number] for DE NNIS, RYAN Blood gas, [id number] 08:24:00 Test Item Value Reference Range Interpretation [...] % Lab Interpretation (test code = Abnormal 11936-1) [facility] HospitalBLOOD GAS, [id number] 08:24:00 Test Item Value Reference Range Interpretation [...] (test code = 1819) 21.0 % POCT-GLUCOSE [id number] 08:22:00 Test Item Value Reference Range Interpretation Comments POC-GLUCOSE METER 143 mg/dL 70-110 H : TESTED A T [facility] 6720 (BEAKER) (test code = ILDA Enrike [place], 1538) [address]: Nutrition And Dietetics Instructor/Techni aaron ID = [id number] for SELENE LERMA ECG 12 [id number] 07:02:11Interface, External Ris In - 06/02/2019 7:02 AM CDTVentricular Rate 83 BPMAtrial Rate 76 BPMQRS Duration 122 msQ-T Interval 376 msQTC Calculation(Bazett) 441 msR [place] 9 degreesT [place] 168 degreesAtrial fibrillationLeft ventricular hypertrophy with QRS wideningNonspecific ST and T wave abnormalityAbnormal ECGWhen compared with ECG of 30-MAY-2019 19:25,No significant change was foundConfirmed by MD SANAZ, GETACHEW ([id number]) on 06/02/2019 7:02:10 [facility]MAGN[facility]UM2020-04-06 03:10:00 Test Item Value Reference Range Interpretation Comments MAGNESIUM (BEAKER) (test code = 1.9 mg/dL 1.6-2.6 627) Nutrition And Dietetics Instructor ID - SANDRA OMPREHENSIVE METABOLIC [id number] 02:30:00 Test Item Value Reference Range Interpretation [...] S NOT APPLICABLE FOR DIALYSIS PATIEN TS. Nutrition And Dietetics Instructor ID - SANDRA WVancomycin level, [id number] 02:22:00 Test Item Value Reference Range Interpretation Comments Vancomycin Tr (test code = 32.2 ug/mL 10-20 4092-3) DORI (test code = DORI) Nutrition And Dietetics Instructor ID - SANDRA W Lab Interpretation (test Abnormal code = 91327-8) [facility] HospitalVANCOMYCIN LEVEL, [id number] 02:22:00 Test Item Value Reference Range Interpretation Comments VANCOMYCIN TROUGH (BEAKER) (test 32.2 ug/mL 10.0-20.0 HH code = 522) Nutrition And Dietetics Instructor ID - SANDRA WCBC W/PLT COUNT & AUTO [id number] 02:07:00 Test Item Value Reference Range Interpretation [...] PERCENT (BEAKER) (test code = 2801) POCT-GLUCOSE [id number] 23:29:00 Test Item Value Reference Range Interpretation Comments POC-GLUCOSE METER 93 mg/dL 70-110 : TESTED A T [facility] 6720 (BEAKER) (test code = [facility], 1538) [address]: Nutrition And Dietetics Instructor/Techni aaron ID = [id number] for MSIB I, MNCEDISI POCT-GLUCOSE [id number] 18:01:00 Test Item Value Reference Range Interpretation Comments POC-GLUCOSE METER 80 mg/dL 70-110 : TESTED A T [facility] 6720 (BEAKER) (test code = 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 Abzabrina Kane Art History Professor Aliya Yee Interpreting Isaac Gonzalez Physician Procedure [...] CO: 4.9 l/min LVOT CI: 2.59 l/min/m^2[facility] 2019-06-01 12:05:00 Test Item Value Reference Range Interpretation Comments POC-GLUCOSE METER 77 mg/dL 70-110 : TESTED A T [facility] 6720 (BEAKER) (test code = ILDA Calvert [facility], 1538) 8[address]: Nutrition And Dietetics Instructor/Techni aaron ID = [id number] for UMMGEM JI BASIC METABOLIC [id number] 11:33:00 Test Item Value Reference Range Interpretation [...] S NOT APPLICABLE FOR DIALYSIS PATIEN TS. Nutrition And Dietetics Instructor ID - SONIA [id number] 11:30:00 Test Item Value Reference Range Interpretation Comments Phosphorus (test code = 4.3 mg/dL 2.3-4.7 2777-1) DORI (test code = DORI) Nutrition And Dietetics Instructor ID - SONIA F Lab Interpretation (test Normal code = 34868-9) [facility] HospitalPHOSPHORUS2020-04-05 11:30:00 Test Item Value Reference Range Interpretation Comments PHOSPHORUS (BEAKER) (test code = 4.3 mg/dL 2.3-4.7 604) Nutrition And Dietetics Instructor ID - SONIA [id number] 11:30:00 Test Item Value Reference Range Interpretation Comments MAGNESIUM (BEAKER) (test code = 1.7 mg/dL 1.6-2.6 627) Nutrition And Dietetics Instructor ID - SONIA FCBC W/PLT COUNT & AUTO [id number] 11:20:00 Test Item Value Reference Range Interpretation [...] PERCENT (BEAKER) (test code = 2801) POCT-GLUCOSE [id number] 07:42:00 Test Item Value Reference Range Interpretation Comments POC-GLUCOSE METER 82 mg/dL 70-110 : TESTED A T [facility] 6720 (BEAKER) (test code = [facility], 1538) 91427: Nutrition And Dietetics Instructor/Techni aaron ID = [id number] for RAGL AND, LATOYA POCT-GLUCOSE [id number] 23:33:00 Test Item Value Reference Range Interpretation Comments POC-GLUCOSE METER 90 mg/dL 70-110 : TESTED A T [facility] 6720 (BEAKER) (test code = [facility], 1538) 23571: Nutrition And Dietetics Instructor/Techni aaron ID = [id number] for RAGL AND, LATOYA POCT-GLUCOSE [id number] 18:34:00 Test Item Value Reference Range Interpretation Comments POC-GLUCOSE METER 83 mg/dL 70-110 : TESTED A T [facility] 6720 (BEAKER) (test code = [facility], 1538) 35598: Nutrition And Dietetics Instructor/Techni aaron ID = [id number] for ANGU LO, GEM POCT-GLUCOSE [id number] 18:27:00 Test Item Value Reference Range Interpretation Comments POC-GLUCOSE METER 88 mg/dL 70-110 : TESTED A T [facility] 6720 (BEAKER) (test code = ILDA Calvert [facility], 1538) 044[address]: Nutrition And Dietetics Instructor/Techni aaron ID = [id number] for GEM MOREJON POCT-GLUCOSE [id number] 18:22:00 Test Item Value Reference Range Interpretation Comments POC-GLUCOSE METER 84 mg/dL 70-110 : TESTED A T [facility] 6720 (BEAKER) (test code = ILDA Calvert [facility], 1538) 18792: Nutrition And Dietetics Instructor/Techni aaron ID = [id number] for ELIDIA BLACKWOOD Prothrombin time/[id number] 11:01:00 Test Item Value Reference Range Interpretation [...] valves. Lab Interpretation Abnormal (test code = 11744-5) [facility] HospitalPROTHROMBIN TIME/[id number] 11:01:00 Test Item Value Reference Range Interpretation [...] for patients wiht mechanical heart valves.Hepatitis panel, [id number] 09:24:00 Test Item Value Reference Range Interpretation Comments Hep A IgM (test code = Reactive Nonreactive A 62625-6) Hep B C IgM (test code = Nonreactive Nonreactive 38861-7) Hepatitis C Ab (test Nonreactive Nonreactive code = 99552-0) HBsAg Screen (test code Nonreactive Nonreactive = 5195-3) DORI (test code = DORI) Nutrition And Dietetics Instructor ID - SONIA F Lab Interpretation (test Abnormal code = 10810-4) [facility] HospitalHEPATITIS PANEL, [id number] 09:24:00 Test Item Value Reference Range Interpretation Comments HEPATITIS A IGM ANTIBODY (BEAKER) Reactive Nonreactive A (test code = 498) HEPATITIS B CORE IGM ANTIBODY Nonreactive Nonreactive (BEAKER) (test code = 645) HEPATITIS C ANTIBODY (BEAKER) Nonreactive Nonreactive (test code = 367) HEPATITIS B SURFACE ANTIGEN (2) Nonreactive Nonreactive (BEAKER) (test code = 2585) Nutrition And Dietetics Instructor ID - SONIA FB-type Natriuretic Factor (BNP)2019-05-31 09:06:00 Test Item Value Reference Range Interpretation Comments BNP (test code = 25325-4) 1536 pg/mL 0-100 H DORI (test code = DORI) Nutrition And Dietetics Instructor ID - ALMA W Lab Interpretation (test Abnormal code = 36914-9) [facility]2019-05-31 09:06:00 Test Item Value Reference Range Interpretation Comments B-TYPE NATRIURETIC PEPTIDE 1536 pg/mL 0-100 H (BEAKER) (test code = 700) Nutrition And Dietetics Instructor ID Sultana MARQUEZ WCOMPREHENSIVE METABOLIC [id number] 09:02:00 Test Item Value Reference Range Interpretation [...] S NOT APPLICABLE FOR DIALYSIS PATIEN TS. Nutrition And Dietetics Instructor ID Sultana RichardsVancomycin level, [id number] 08:59:00 Test Item Value Reference Range Interpretation Comments Vancomycin Rm (test 18.6 ug/mL code = 04163-6) DORI (test code = Reference Range: No DORI) NormalsOperator ID - ALMA Richards [facility] HospitalVANCOMYCIN LEVEL, [id number] 08:59:00 Test Item Value Reference Range Interpretation Comments VANCOMYCIN RANDOM (BEAKER) (test 18.6 ug/mL code = 523) Reference Range: No NormalsOperator ANGELI MARQUEZ WCBC W/PLT COUNT & AUTO [id number] 08:43:00 Test Item Value Reference Range Interpretation [...] (BEAKER) (test code = 2801) Creatinine, random [id number] 05:47:00 Test Item Value Reference Range Interpretation Comments Creatinine, Ur 24.9 mg/dL (test code = 2161-8) DORI (test code = Reference Range: No DORI) NormalsOperator ID - EMILIE L [facility] Centerodium, random [id number] 05:47:00 Test Item Value Reference Range Interpretation Comments Sodium Urine (test 59 meq/L code = 2955-3) DORI (test code = Reference Range: No DORI) NormalsOperator ID - EMILIE L [facility] HospitalUrea Nitrogen, random [id number] 05:47:00 Test Item Value Reference Range Interpretation Comments Urea Nitrogen, Ur 332 mg/dL (test code = 3095-7) DORI (test code = Reference Range: No DORI) NormalsOperator ID - EMILIE L [facility] HospitalCREATININE, RANDOM [id number] 05:47:00 Test Item Value Reference Range Interpretation Comments CREATININE URINE (BEAKER) (test 24.9 mg/dL code = 375) Reference Range: No NormalsOperator ID - PIAYA LSODIUM, RANDOM [id number] 05:47:00 Test Item Value Reference Range Interpretation Comments SODIUM URINE (BEAKER) (test code = 59 meq/L 243) Reference Range: No NormalsOperator ID - PIAYA LUREA NITROGEN, RANDOM URINE 2019-05-31 05:47:00 Test Item Value Reference Range Interpretation Comments UREA NITROGEN URINE (BEAKER) (test 332 mg/dL code = 538) Reference Range: No NormalsOperator ID - PIAYA LPOCT-GLUCOSE [id number] 00:03:00 Test Item Value Reference Range Interpretation Comments POC-GLUCOSE METER 89 mg/dL 70-110 : TESTED A T [facility] 6720 (BEAKER) (test code = ILDA Calvert [facility], 1538) [address]: Nutrition And Dietetics Instructor/Techni aaron ID = [id number] for ELIDIA BLACKWOOD RAD, CHEST, 1 VIEW, NON [id number] 22:00:00Reason for exam:->Pt with noted OSH R [...] 22:00:23 XR chest 1 view portable / [id number] 22:00:00Interface, External Ris In - 05/30/2019 10:02 [...] Reji Tyler MDReport Verified Date/Time: 05/30/2019 22:00:23 [facility] CenterCOMPRE[facility]ENSIVE METABOLIC [id number] 21:22:00 Test Item Value Reference Range Interpretation [...] S NOT APPLICABLE FOR DIALYSIS PATIEN TS. Nutrition And Dietetics Instructor ID - CDPPROTHROMBIN TIME/[id number] 21:14:00 Test Item Value Reference Range Interpretation [...] mechanical heart valves.CBC W/PLT COUNT & AUTO [id number] 21:08:00 Test Item Value Reference Range Interpretation [...] (test code = No acid fast bacilli 44615-3) seen [facility] HospitalAFB CULTURE + SMEAR (NON-SPUTUM)2019-05-26 15:52:00 Test [...] code = 994) seen FUNGUS CULTURE + [id number] 16:19:00 Test Item Value Reference Range Interpretation Comments CULTURE (BEAKER) (test No fungus isolated in code = 1095) 28 days FUNGUS SMEAR (BEAKER) No fungi seen (test code = 1406) FUNGUS CULTURE + [id number] 16:19:00 Test Item Value Reference Range Interpretation Comments CULTURE (BEAKER) (test No fungus isolated in code = 1095) 28 days FUNGUS SMEAR (BEAKER) <1+ yeast (test code = 1406) FUNGUS CULTURE + [id number] 16:19:00 Test Item Value Reference Range Interpretation Comments CULTURE (BEAKER) (test No fungus isolated in code = 1095) 28 days FUNGUS SMEAR (BEAKER) <1+ yeast (test code = 1406) FUNGUS CULTURE + [id number] 16:19:00 Test Item Value Reference Range Interpretation Comments CULTURE (BEAKER) (test No fungus isolated in code = 1095) 28 days FUNGUS SMEAR (BEAKER) No fungi seen (test code = 1406) FUNGUS CULTURE + [id number] 16:19:00 Test Item Value Reference Range Interpretation Comments CULTURE (BEAKER) (test No fungus isolated in code = 1095) 28 days FUNGUS SMEAR (BEAKER) <1+ yeast (test code = 1406) RAD, CHEST, 2 [id number] 08:51:00Reason for Exam:->PLEURAL EFFUSIONFINAL REPORT EXAMINATION: PA [...] Verified Date/Time: 05/09/2019 08:51:36 Reading Location: [facility] Reading Room [address] [place] [address] XR chest 2 [id number] 08:51:00Interface, External Ris In - 05/09/2019 8:53 [...] Verified Date/Time: 05/09/2019 08:51:36 Reading Location: [facility] Reading Room [address] [place] [address] [facility] ([facility]-SPUTUM)2019-05-06 22:55:00 Test [...] code = 994) seen Fungus culture + [id number] 17:35:00 Test Item Value Reference Range Interpretation Comments Result (test code = <1+ Ana A 6463-4) albicans Fungus Smear (test code = No fungi seen 1406) Lab Interpretation (test Abnormal code = 35530-8) [facility] HospitalFUNGUS CULTURE + [id number] 17:35:00 Test Item Value Reference Range Interpretation Comments CULTURE (BEAKER) A <1+ Ana albicans (test code = 1095) FUNGUS SMEAR No fungi seen (BEAKER) (test code = 1406) RAD, CHEST, 1 VIEW, NON [id number] 08:25:00Reason for exam:->s/p R VATSShould this be [...] MDReport Verified Date/Time: 04/25/2019 08:25:05 Reading Location: [facility] Radiology Reading Room CBC W/PLT COUNT & AUTO [id number] 07:17:00 Test Item Value Reference Range Interpretation [...] 0-1 PERCENT (BEAKER) (test code = 2801) [id number] 06:30:00 Test Item Value Reference Range Interpretation Comments PHOSPHORUS (BEAKER) (test code = 2.6 mg/dL 2.3-4.7 604) Nutrition And Dietetics Instructor ID Sultana PHAN [id number] 06:30:00 Test Item Value Reference Range Interpretation Comments MAGNESIUM (BEAKER) (test code = 1.7 mg/dL 1.6-2.6 627) Nutrition And Dietetics Instructor ID Sultana PHAN LBASIC METABOLIC [id number] 06:30:00 Test Item Value Reference Range Interpretation [...] S NOT APPLICABLE FOR DIALYSIS PATIEN TS. Nutrition And Dietetics Instructor ID - EMILIE LRAD, CHEST, 1 VIEW, NON [id number] 09:38:00Reason for exam:->s/p R VATSShould this be [...] MDReport Verified Date/Time: 04/24/2019 09:38:07 Reading Location: [facility] Radiology Reading Room BASIC METABOLIC [id number] 06:26:00 Test Item Value Reference Range Interpretation [...] S NOT APPLICABLE FOR DIALYSIS PATIEN TS. Nutrition And Dietetics Instructor ID - EMILIE LSpecimen slightly [id number] 06:19:00 Test Item Value Reference Range Interpretation Comments PHOSPHORUS (BEAKER) (test code = 3.3 mg/dL 2.3-4.7 604) Nutrition And Dietetics Instructor ID - EMILIE [id number] 06:19:00 Test Item Value Reference Range Interpretation Comments MAGNESIUM (BEAKER) (test code = 1.8 mg/dL 1.6-2.6 627) Nutrition And Dietetics Instructor ID - EMILIE LCBC W/PLT COUNT & AUTO [id number] 04:39:00 Test Item Value Reference Range Interpretation [...] FL, ESOPH, SWALLOW FUNCTION, WITH CINE OR [id number] 14:55:00Reason for exam:->dysphagiaFINAL REPORT Modified barium swallow [...] Moncada Verified Date/Time: 04/23/2019 14:55:57 Reading Location: [address] , CHEST, 1 VIEW, NON [id number] 14:41:00Reason for exam:->s/p ct removalShould this be [...] MDReport Verified Date/Time: 04/23/2019 14:41:23 Reading Location: [facility] Radiology Reading Room RAD, CHEST, 1 VIEW, NON [id number] 09:12:00Reason for exam:->s/p R VATSShould this be [...] MDReport Verified Date/Time: 04/23/2019 09:12:53 Reading Location: [facility] Radiology Reading Room BASIC METABOLIC [id number] 05:25:00 Test Item Value Reference Range Interpretation [...] S NOT APPLICABLE FOR DIALYSIS PATIEN TS. Nutrition And Dietetics Instructor ID - ELISSA [id number] 05:24:00 Test Item Value Reference Range Interpretation Comments Prealbumin (test code = 7 mg/dL 14-45 L 01574-7) DORI (test code = DORI) Nutrition And Dietetics Instructor ID - ELISSA M Lab Interpretation (test Abnormal code = 24970-5) [facility] HospitalPREALBUMIN2020-02-26 05:24:00 Test Item Value Reference Range Interpretation Comments PREALBUMIN (BEAKER) (test code = 586) 7 mg/dL 14-45 L Nutrition And Dietetics Instructor ID - ELISSA [id number] 05:23:00 Test Item Value Reference Range Interpretation Comments PHOSPHORUS (BEAKER) (test code = 2.8 mg/dL 2.3-4.7 604) Nutrition And Dietetics Instructor ID - ELISSA [id number] 05:23:00 Test Item Value Reference Range Interpretation Comments MAGNESIUM (BEAKER) (test code = 1.9 mg/dL 1.6-2.6 627) Nutrition And Dietetics Instructor ID - ELISSA MCBC W/PLT COUNT & AUTO [id number] 04:58:00 Test Item Value Reference Range Interpretation [...] = 2801) RAD, CHEST, 1 VIEW, NON [id number] 10:13:00Reason for exam:->s/p R VATSShould this be [...] Sanz Verified Date/Time: 04/22/2019 10:13:43 Reading Location: [facility] Radiology Reading Room 10:13 AMBASIC METABOLIC [id number] 04:59:00 Test Item Value Reference Range Interpretation [...] S NOT APPLICABLE FOR DIALYSIS PATIEN TS. Nutrition And Dietetics Instructor ID - ELISSA [id number] 04:57:00 Test Item Value Reference Range Interpretation Comments PHOSPHORUS (BEAKER) (test code = 2.7 mg/dL 2.3-4.7 604) Nutrition And Dietetics Instructor ID - ELISSA [id number] 04:57:00 Test Item Value Reference Range Interpretation Comments MAGNESIUM (BEAKER) (test code = 1.9 mg/dL 1.6-2.6 627) Nutrition And Dietetics Instructor ID - ELISSA MCBC W/PLT COUNT & AUTO [id number] 03:33:00 Test Item Value Reference Range Interpretation [...] PERCENT (BEAKER) (test code = 2801) Anaerobic [id number] 17:25:00 Test Item Value Reference Range Interpretation Comments Result (test code = No anaerobes isolated 6463-4) [facility] [id number] 17:25:00 Test Item Value Reference Range Interpretation Comments CULTURE (BEAKER) (test No anaerobes isolated code = 1095) ANAEROBIC [id number] 17:24:00 Test Item Value Reference Range Interpretation Comments CULTURE (BEAKER) (test No anaerobes isolated code = 1095) ANAEROBIC [id number] 17:24:00 Test Item Value Reference Range Interpretation Comments CULTURE (BEAKER) (test No anaerobes isolated code = 1095) ANAEROBIC [id number] 17:23:00 Test Item Value Reference Range Interpretation Comments CULTURE (BEAKER) (test No anaerobes isolated code = 1095) ANAEROBIC [id number] 17:23:00 Test Item Value Reference Range Interpretation Comments CULTURE (BEAKER) (test No anaerobes isolated code = 1095) BASIC METABOLIC [id number] 12:47:00 Test Item Value Reference Range Interpretation [...] S NOT APPLICABLE FOR DIALYSIS PATIEN TS. Nutrition And Dietetics Instructor ID Sultana SCOTT [id number] 12:46:00 Test Item Value Reference Range Interpretation Comments MAGNESIUM (BEAKER) 2.2 mg/dL 1.6-2.6 Specimen slightly (test code = 627) hemolyzed Nutrition And Dietetics Instructor ANGELI SCOTT FBASIC METABOLIC [id number] 05:36:00 Test Item Value Reference Range Interpretation [...] S NOT APPLICABLE FOR DIALYSIS PATIEN TS. Nutrition And Dietetics Instructor ANGELI Sultana JORDANNA [id number] 05:32:00 Test Item Value Reference Range Interpretation Comments PHOSPHORUS (BEAKER) (test code = 3.4 mg/dL 2.3-4.7 604) Nutrition And Dietetics Instructor ID - SANDRA [id number] 05:32:00 Test Item Value Reference Range Interpretation Comments MAGNESIUM (BEAKER) (test code = 2.0 mg/dL 1.6-2.6 627) Nutrition And Dietetics Instructor ID - SANDRA WCBC W/PLT COUNT & AUTO [id number] 05:07:00 Test Item Value Reference Range Interpretation [...] = 2801) RAD, CHEST, 1 VIEW, NON [id number] 04:30:00Reason for exam:->s/p R VATSShould this be [...] MDReport Verified Date/Time: 04/21/2019 04:30:21 BASIC METABOLIC [id number] 16:21:00 Test Item Value Reference Range Interpretation [...] S NOT APPLICABLE FOR DIALYSIS PATIEN TS. Nutrition And Dietetics Instructor ID - SONIA [id number] 15:52:00 Test Item Value Reference Range Interpretation Comments PHOSPHORUS (BEAKER) (test code = 2.7 mg/dL 2.3-4.7 604) Nutrition And Dietetics Instructor ID - SONIA [id number] 15:52:00 Test Item Value Reference Range Interpretation Comments MAGNESIUM (BEAKER) (test code = 2.0 mg/dL 1.6-2.6 627) Nutrition And Dietetics Instructor ID - SONIA FCBC W/PLT COUNT & AUTO [id number] 15:27:00 Test Item Value Reference Range Interpretation [...] PERCENT (BEAKER) (test code = 2801) POCT-GLUCOSE [id number] 12:28:00 Test Item Value Reference Range Interpretation Comments POC-GLUCOSE METER 104 mg/dL 70-110 : TESTED A T [facility] 6720 (BEAKER) (test code = ILDA Calvert [facility], 1538) [address]: Nutrition And Dietetics Instructor/Techni aaron ID = [id number] for JON ARCEO RAD, CHEST, 1 VIEW, NON [id number] 08:05:00Reason for exam:->s/p R VATSShould this be [...] MDReport Verified Date/Time: 04/20/2019 08:05:30 Reading Location: [address] Neuro Reading Room BASIC METABOLIC PANEL [...] S NOT APPLICABLE FOR DIALYSIS PATIEN TS. Nutrition And Dietetics Instructor ID - [id number] 04:57:00 Test Item Value Reference Range Interpretation Comments PHOSPHORUS (BEAKER) (test code = 3.9 mg/dL 2.3-4.7 604) Nutrition And Dietetics Instructor ID - [id number] 04:57:00 Test Item Value Reference Range Interpretation Comments MAGNESIUM (BEAKER) (test code = 2.2 mg/dL 1.6-2.6 627) Nutrition And Dietetics Instructor ID - DBCBC W/PLT COUNT & AUTO [id number] 03:45:00 Test Item Value Reference Range Interpretation [...] PERCENT (BEAKER) (test code = 2801) POCT-GLUCOSE [id number] 00:19:00 Test Item Value Reference Range Interpretation Comments POC-GLUCOSE METER 115 mg/dL 70-110 H : TESTED A T [facility] 6720 (BEAKER) (test code = ILDA [place], 1538) [address]: Nutrition And Dietetics Instructor/Techni aaron ID = [id number] for [place] MS, SENORA FUNGUS CULTURE + [id number] 18:47:00 Test Item Value Reference Range Interpretation Comments CULTURE (BEAKER) (test No fungus isolated in code = 1095) 28 days FUNGUS SMEAR (BEAKER) No fungi seen (test code = 1406) FUNGUS CULTURE + [id number] 18:47:00 Test Item Value Reference Range Interpretation Comments CULTURE (BEAKER) (test No fungus isolated in code = 1095) 28 days FUNGUS SMEAR (BEAKER) No fungi seen (test code = 1406) FUNGUS CULTURE + [id number] 18:35:00 Test Item Value Reference Range Interpretation Comments CULTURE (BEAKER) (test No fungus isolated in code = 1095) 28 days FUNGUS SMEAR (BEAKER) No fungi seen (test code = 1406) [id number] 18:02:00 Test Item Value Reference Range Interpretation Comments PHOSPHORUS (BEAKER) (test code = 1.3 mg/dL 2.3-4.7 LL 604) Nutrition And Dietetics Instructor ID Sultana SCOTT FBASIC METABOLIC [id number] 17:59:00 Test Item Value Reference Range Interpretation [...] S NOT APPLICABLE FOR DIALYSIS PATIEN TS. Nutrition And Dietetics Instructor ID Sultana SCOTT [id number] 17:58:00 Test Item Value Reference Range Interpretation Comments MAGNESIUM (BEAKER) (test code = 2.1 mg/dL 1.6-2.6 627) Nutrition And Dietetics Instructor ID Sultana SCOTT FCBC W/PLT COUNT & AUTO [id number] 17:41:00 Test Item Value Reference Range Interpretation [...] = 2801) RAD, CHEST, 1 VIEW, NON [id number] 09:28:00Reason for exam:->s/p R VATSShould this be [...] GarciaMDReport Verified Date/Time: 04/19/2019 09:28:51 Reading Location: [address] Neuro Reading Room BASIC METABOLIC [id number] 04:18:00 Test Item Value Reference Range Interpretation [...] S NOT APPLICABLE FOR DIALYSIS PATIEN TS. Nutrition And Dietetics Instructor ID - ELISSA [id number] 04:16:00 Test Item Value Reference Range Interpretation Comments MAGNESIUM (BEAKER) 1.8 mg/dL 1.6-2.6 Specimen slightly (test code = 627) hemolyzed Nutrition And Dietetics Instructor ID - ELISSA [id number] 04:16:00 Test Item Value Reference Range Interpretation Comments PHOSPHORUS (BEAKER) 1.9 mg/dL 2.3-4.7 L Specimen slightly (test code = 604) hemolyzed Nutrition And Dietetics Instructor ID - ELISSA MCBC W/PLT COUNT & AUTO [id number] 03:48:00 Test Item Value Reference Range Interpretation [...] PERCENT (BEAKER) (test code = 2801) POCT-GLUCOSE [id number] 00:35:00 Test Item Value Reference Range Interpretation Comments POC-GLUCOSE METER 104 mg/dL 70-110 : TESTED A T [facility] 6720 (BEAKER) (test code = ILDA [place], 1538) [address]: Nutrition And Dietetics Instructor/Techni aaron ID = [id number] for [place] , NEEL Prepare Leuko-Red [id number] 23:54:00 Test Item Value Reference Range Interpretation Comments CROSSMATCH (test code = 2264) COMPATIBLE Unit ABO (test code = A Neg 4290787) UNIT NUMBER (test code = [id number] 934-0) Status (test code = 4712395) TX_TIMEINCHART Blood Bank Product (test code RED BLOOD CELLS = 2263) PRODUCT CODE (test code = C6616F85 933-2) [facility] MET[facility]OLIC [id number] 19:39:00 Test Item Value Reference Range Interpretation [...] S NOT APPLICABLE FOR DIALYSIS PATIEN TS. Nutrition And Dietetics Instructor ID - [id number] 19:37:00 Test Item Value Reference Range Interpretation Comments PHOSPHORUS (BEAKER) (test code = 1.8 mg/dL 2.3-4.7 L 604) Nutrition And Dietetics Instructor ID - [id number] 19:37:00 Test Item Value Reference Range Interpretation Comments MAGNESIUM (BEAKER) (test code = 1.8 mg/dL 1.6-2.6 627) Nutrition And Dietetics Instructor ID - DBPOCT-GLUCOSE [id number] 18:39:00 Test Item Value Reference Range Interpretation Comments POC-GLUCOSE METER 115 mg/dL 70-110 H : Notified RN/MD: (BEAKER) (test code = TESTED AT [facility] 5101 8586) [facility], [address]: Nutrition And Dietetics Instructor/Techni aaron ID = [id number] for Renetta Guerrier CBC W/PLT COUNT & AUTO [id number] 18:15:00 Test Item Value Reference Range Interpretation [...] = 2801) Surgically obtained culture + gram [id number] 16:40:00 Test Item Value Reference Range Interpretation Comments Result (test code = 6463-4) No growth Gram Stain Result (test No organisms seen code = 1123) [facility] + GRAM [id number] 16:40:00 Test Item Value Reference Range Interpretation Comments CULTURE (BEAKER) (test code No growth = 1095) GRAM STAIN RESULT (BEAKER) 1+ WBCs (test code = 1123) GRAM STAIN RESULT (BEAKER) No organisms seen (test code = 75940) SURGICALLY OBTAINED CULTURE + GRAM [id number] 16:40:00 Test Item Value Reference Range Interpretation Comments CULTURE (BEAKER) (test code No growth = 1095) GRAM STAIN RESULT (BEAKER) 1+ WBCs (test code = 1123) GRAM STAIN RESULT (BEAKER) No organisms seen (test code = 63122) SURGICALLY OBTAINED CULTURE + GRAM [id number] 16:40:00 Test Item Value Reference Range Interpretation Comments CULTURE (BEAKER) (test code No growth = 1095) GRAM STAIN RESULT (BEAKER) 1+ WBCs (test code = 1123) GRAM STAIN RESULT (BEAKER) No organisms seen (test code = 55733) SURGICALLY OBTAINED CULTURE + GRAM [id number] 16:40:00 Test Item Value Reference Range Interpretation Comments CULTURE (BEAKER) (test code No growth = 1095) GRAM STAIN RESULT (BEAKER) 1+ WBCs (test code = 1123) GRAM STAIN RESULT (BEAKER) No organisms seen (test code = 27556) SURGICALLY OBTAINED CULTURE + GRAM [id number] 16:40:00 Test Item Value Reference Range Interpretation Comments CULTURE (BEAKER) (test code No growth = 1095) GRAM STAIN RESULT (BEAKER) 1+ WBCs (test code = 1123) GRAM STAIN RESULT (BEAKER) No organisms seen (test code = 21720) POCT-GLUCOSE [id number] 11:57:00 Test Item Value Reference Range Interpretation Comments POC-GLUCOSE METER 126 mg/dL 70-110 H : Notified RN/MD: (YELITZA) (test code = TESTED AT [facility] 6720 1538) [facility], [address]: Nutrition And Dietetics Instructor/Techni aaron ID = [id number] for Si mmshahana, Renetta RAD, CHEST, 1 VIEW, NON [id number] 10:13:00Reason for exam:->s/p R VATSShould this be [...] MDReport Verified Date/Time: 04/18/2019 10:13:43 Reading Location: [facility] Radiology Reading Room POCT-GLUCOSE [id number] 06:07:00 Test Item Value Reference Range Interpretation Comments POC-GLUCOSE METER 136 mg/dL 70-110 H : TESTED A T [facility] 6720 (BEAKER) (test code = ILDA [place], 1538) [address]: Nutrition And Dietetics Instructor/Techni aaron ID = [id number] for Ed wards, [place] BASIC METABOLIC [id number] 03:23:00 Test Item Value Reference Range Interpretation [...] S NOT APPLICABLE FOR DIALYSIS PATIEN TS. Nutrition And Dietetics Instructor ID - ELISSA [id number] 03:09:00 Test Item Value Reference Range Interpretation Comments PHOSPHORUS (BEAKER) (test code = 2.9 mg/dL 2.3-4.7 604) Nutrition And Dietetics Instructor ID - ELISSA [id number] 03:09:00 Test Item Value Reference Range Interpretation Comments MAGNESIUM (BEAKER) (test code = 2.0 mg/dL 1.6-2.6 627) Nutrition And Dietetics Instructor ID - ELISSA MBLOOD GAS, [id number] 02:53:00 Test Item Value Reference Range Interpretation [...] 40.0 % CBC W/PLT COUNT & AUTO [id number] 02:51:00 Test Item Value Reference Range Interpretation [...] PERCENT (BEAKER) (test code = 2801) POCT-GLUCOSE [id number] 00:31:00 Test Item Value Reference Range Interpretation Comments POC-GLUCOSE METER 121 mg/dL 70-110 H : TESTED A T [facility] 6720 (BEAKER) (test code = [facility], 1538) [address]: Nutrition And Dietetics Instructor/Techni aaron ID = [id number] for NAYELY FRAIRE POCT-GLUCOSE [id number] 18:46:00 Test Item Value Reference Range Interpretation Comments POC-GLUCOSE METER 114 mg/dL 70-110 H : TESTED A T [facility] 6720 (BEAKER) (test code = [facility], 1538) [address]: Nutrition And Dietetics Instructor/Techni aaron ID = [id number] for ALAN BONILLA BASIC METABOLIC [id number] 17:17:00 Test Item Value Reference Range Interpretation [...] S NOT APPLICABLE FOR DIALYSIS PATIEN TS. Nutrition And Dietetics Instructor ID - BSSpecimen slightly [id number] 17:14:00 Test Item Value Reference Range Interpretation Comments PHOSPHORUS (BEAKER) (test code = 4.2 mg/dL 2.3-4.7 604) Nutrition And Dietetics Instructor ID - [id number] 17:14:00 Test Item Value Reference Range Interpretation Comments MAGNESIUM (BEAKER) (test code = 2.1 mg/dL 1.6-2.6 627) Nutrition And Dietetics Instructor ID - BSCBC W/PLT COUNT & AUTO [id number] 16:29:00 Test Item Value Reference Range Interpretation [...] (BEAKER) (test code = 2801) BLOOD GAS, [id number] 16:23:00 Test Item Value Reference Range Interpretation [...] (test code = 1819) 40.0 % POCT-GLUCOSE [id number] 13:26:00 Test Item Value Reference Range Interpretation Comments POC-GLUCOSE METER 94 mg/dL 70-110 : TESTED A T [facility] 6720 (BEAKER) (test code = ILDA [place], 1538) [address]: Nutrition And Dietetics Instructor/Techni aaron ID = [id number] for [employer] FINCH Bronchial culture + gram [id number] 11:54:00 Test Item Value Reference Range Interpretation Comments Result (test code = 6463-4) No growth Gram Stain Result (test No organisms seen code = 1123) [facility] + GRAM [id number] 11:54:00 Test Item Value Reference Range Interpretation Comments CULTURE (BEAKER) (test code No growth = 1095) GRAM STAIN RESULT (BEAKER) 1+ WBCs (test code = 1123) GRAM STAIN RESULT (BEAKER) No organisms seen (test code = 30926) Tissue Mabi3507-18-73 11:43:00 Test Item Value Reference Range Interpretation Comments Case Report (test code Surgical Pathology = 104) Report Case: [id number] Authorizing Provider: Fernando Andrews MD Collected: 04/14/2019 1654 Ordering Location: [facility] Received: 04/15/2019 0933 PERIOPERATIVE SERVICES Pathologist: Gay Puentes MD Specimens: A) - Pleura, PARIETAL PLEURA B) - Lung, Right Lower Lobe, Right lower lobe C) - Lung, Right Middle Lobe, Right middle lobe D) - Lung, Right Upper Lobe, Right upper lobe DIAGNOSIS (test code = [id number] 3220) uZzEwMzNcZnRuYmpcdWMxIH baqqVtAFqwb0QgY5OhNvKkO FxhbnNpXGRlZmxhbmcxMDMz SLZ9swTtVOQkHPvqPUCiNCk oJm7bxSEslZzpJyBqCSHhi6 uavfPNltuzgOv0v6eoFEIpH pS7eENmVEfgG6sxyyQvgOTm GVBuPYg5yDvaKyOjTPMxs79 hbiBcZmNoYXJzZXQwIEFyaW WpB377n9zel4tlbqLcgQD6V ZXqJNT9EDxmfnHmjoU1KLec iAHsBiG8ELjaqlYiSPEnQ9L lUF6fAZknkSHrNBHvV0jgKV KcVXmiUFXvZNwnoPNlPJQ5y Bhua2M9rPZztZYpjGyeHrZc JdVqEBCFt5FvQZl5tKoqZ8D gGUYmKsZ1jCIaKHEbHIepYK WzRDEwdaG2uK92ZCprsaD5p PIvc3Cbd90wl469bA8ntICl MGI4VBXeKJAknZLuBGJzGWN 7IABrxHNwG6d2XeIeqEYlZ8 P3NxAuiSLuL6J2SoOfdKZvD 1D8BxXvgSEeOVZjmGGiDo4j cPDyvJAuch5wwg35AME1k3A jaQgkCTF5NPK6LhYsTf9slZ GyLSAgTI8kZzWthEBbIGIxb s28yMlzVMwptnCleK4tXnGl BU2leQiyy63cECMqRW0qnN8 uwt2sjoKvNMypqQPcwFL1px zrHZO7MLYrgcGxi4Zxa9yqC vWmhjFfI3wfO9BwYSAqJMDq AJXaMqNvncVxm0Zlo5WzpGS fwLs2c3rnWHKxRZApfQrcg3 fxELP4XGXvA8M9xKDrm8juE FezZYRhnYR4kzwhGIidDVUs amQ3dwmlNTcdQXGbvRL9ldv mWYbwSRPrQiK3qksdSMkzOJ QnOSK2FGkol422CNC0LRkjS mtwYWdlXHBnbmNvbnRccGdu ZGVjXHBsYWluXHBsYWluXGY bYDPlVmTlgHkqnTiucY9mSi XzEmPzFIgyHI6zEIYyZ3cta NBuIEJjXJBcQ6thTsMlvJ7s aFxmMVxmczIwXHBhciBBLiB BMNLHVsWtAOYLG4oTQHWTSW JJRVRBTCBQTEVVUkEsIERFQ 57MLOfYABTZO113ZHEffdLk ICAgLSBDSFJPTklDIEZJQlJ WK3tPLvRTUZBYOqbNQEMiIU BhciAgICAgLSBORUdBVElWR ODIV8FxLCATQVrNNB0DONwv YXJccGFyIEIuIExVTkcsIFJ NS3cYZKiSE9AZESxKNcCdQN DCX57NPAiIOUKXV926GPKab iAgICAgLSBDSFJPTklDIEZJ RqMVA1wXFdJCCZFLQrlRVNA tP6xYZOYVQ4CUPPXXV8NAUX DQImCILU2RLVOIV70jOYFks iTpEVRqKKBLKY6ATLCHWgCO R9uRELRkD2nTWECSXRKQTKY FOfIXTiMUHdpCUsmtZM7CWQ WOZFWMU54KYM4poQCgAFMzO FLpNU6KD7WVGATTZOCCIlHM CZoDA26ELuDISMIdxrkcAPN jEe5fMJHEVsynJxyNTODjGH xQKKvGBFsSUzIrEIACX90CL VnTOYLEV980TKWjdmThSXDf RGFXNERBEmgNOSBHOtBZS7d ORyBQTEVVUklUSVMuXHBhci AgICAgLSBORUdBVElWRSBGT 7LaAFZXVQkLTS7YPD1zqEMi XHBhclxwYXJkXHBsYWluXGY tARCiIoWokSvpoX5wTzKnFj PaPCecGS3rACJuL6tamFYwN XGsLYRyE1dhPbJhlR6uaUrq MVxmczIwIEQuIExVTkcsIFJ QF9yJXGETVLNHWNqVRiOkON VSE12TQEgROEBVB782UYZxu lxxbFxwbGFpblxmMFxmczI0 XHBsYWluXGYxXGZzMjBcbGF uZzEwMzNcaGljaFxmMVxkYm RwJGXiKZzyN8ugZhFlStPuP CAgICAgLSBDSFJPTklDIEZJ TkTLN3dURsLKLDWSPfyAZBW uXHBhciAgICAgLSBORUdBVE dMZJBLA1GpQEYXSPvJJC9OZ G7snBHzQZCaNTZaWWtHMycq VIRJCE6NGKsQYXMWWNWAGJw wbGFpblxmMlxmczIwXGxhbm omAUZnBZpoI2ueZrEhAZLqd DjmRtpdt4ArHGIeLZKaMstn rvItERf0tmQbMZ7CSAXEB59 BIfhHOB7XGZFOPWwLF6ZTKQ MgQUxURVJBVElPTlxwbGFpb lxmMVxmczIwXGxhbmcxMDMz WEonI5wsHbHwJHOsmBgvMZq um8KpYHEuAVOjChrblrLgBU 7cwIelrS8rOmUhYhNqQIvxY F9qSFDhB6lcnOFmHLPcGURh T0rxDiVvvG6mpUshJIyfeoN cFJOxvbgnEXV6p3zilGKvLH NzdGUxODAwMFxhbnNpXGRlZ ueljquiEKQbUBN8oiFlRFBk WRvwUEYdQGcaWr7acPIyoUd oTkDsHVDnv1etdeXHkumrtO w8b5dfUQStTeS2hCTmTByhF 5vueyRmySWwZKEkYNi3uA72 AQFwxG6idVAbSEkzvrCvDqT 1EIxrRSArHjI5VSJfnYWqIQ RnR6xoELIcYKioCWWrJFgnc SDeMAS4uUnfw9X8lOEpfCHd zYuhZmCvHqSmJeHAj4NfMYq 0yQtuC8DsKKDtZrX8jMDyJU WqNDvdAVEmEAMrsqY9pP18V TyfwiW1aYCmn6Gvy04aj367 qR8svGFmQGE7EMDiBZSrlAV gTGYtPIX1JRKrdPXyU3yiRG FcGO9gesjvKNmjHMveCHSlk VV4JEEewMFxI2PrFVQzZErt IJNadzj1YmIpEa7clLBomHh hAJwrs8odt9qmqIGaRvb1AH QbHhMwTdroYPzsw9Zwr1ilV MSjzb6qSAD6tENknFynu7L8 yOPfGFHftWXxDFDxEX9zoQC nLKTgzA3qsfoaBWIvSmYfvr rgLRZurWcgutIvVv1qqIrmN IR3LPjsY8sylE6qUtN3JBud J7yipY3gUXu3YWovLANjiEB 5aoZ8TPYutCVbA9KwvD0jTZ UtJI2ggat7p2jtPHN5RCndH XZgUdJ6wfK9LEElhJJcJRTe hWnoTKwsa399FKW2IrUqLFB jj1XrH0ZsxNiyD36kxHflO2 0eVCIgrKsnfZ6snYpokV1gS fRhTfCfPXmvcLfpRP3fDLUs V1dbiLPrKGMrBDPgD0ivAmX iuY6bfUctMTlfzdKpIMEgQm i0XUVyuOWwMWTdDxc7NFFmL TBeI72zabwgCJC0jY6rg3zc w8OtCVjuGXF5MFXgx80iZOj lzlX2TGxfKb89RHxhHXZ1HA jwTXG7iH== CPT Code(s) (test code h4akgKZtSTIpwPMkOgSbCLO = 3357) sJEUgn4irQHAbiMPuEgPiWy NcZnRuYmpcdWMxXGRlZmYwe 6wee025mCYaq9zbXJHhRqB4 jASaZTDhvGDiD285a5ozz9h bppFugBQ1FXSlDPQ2OAcecq IgkhL4XBnrcLNrVjK7ZUjhp ePfJWtzbwPpuxMzSmh4HPTw V889RXW3xBysp2erJIF3TYC nQLGrZnZeQg9lzEHnD106FN LwORFBMFKldBl2DYJpzaMal nCubWMHo919T328q0zmYUGb ypMjnUqNdpost9pgH630NPK hcGVydzEyMjQwXHBhcGVyaD R4IXDgBI8hmajuTyMcDM7fp zshLaBpTT8mjoa2AgYkYX2x cmdiNzIwXGhlYWRlcnkwXGZ ug5LfzahvLT8kK7Fdu1P6kD 9maXRcZGVmdGFiNzIwXGZvc a9wzMUbMHubx1NvCAK0ogS5 cYAguLPgJUBhDZ97Hxdwr8Z sYrolCXI1WAHsvaEgk3Tni1 itRlNmrdNdW8hcN7QfESHkZ EFoANFiGlYriqUkk0Ycm5Vu xYGixZc3l3atBZSoUZKjqQj ol1hoTUU7SUQnX4L4ePVre8 ddNMvmCWZdpJX0gtkxDZhaR MMmeiX0oyosPVryFVMemCL6 ingnMTxyJHTiHnR1jwibXVo tCTHkBIW8UGjqx720SWB6QN xzYmtwYWdlXHBnbmNvbnRcc GduZGVjXHBsYWluXHBsYWlu XGYwXGZzMjRccWxccGxhaW5 oTbApCiHqUZerHK9zYHEcN3 aznXVdGWHsMQZvR4ecScZys Y9gtJjaPSbbofYjXKv5RpS3 IFggNFxwYXJ9 CLINICAL HISTORY (test h1jmnWJnKPSszIRrOoKgRPI code = 3356) rAWRnm0wwBWDriVGdPhQxSw NcZnRuYmpcdWMxXGRlZmYwe 0xlv561oQWmk5mgIWVkMlX8 iSTaANIkrIHeZ688f3lvt3b jblGosYE0MPGsJLG3KKhvmx UfiqC0JFwgcVUuUpK5CDpxg xKbSZszlrTzelGhMax8ZGEy Q046EPK4iOhha6fkQXQ8KAQ sXEKgKxCtTm6nuBRxU265DZ IbQIRCHGNpiNg2KJYnfrLvu gZwtPZGo859D224p7ghGWYg lfLxpOfVlrlfj5qnQ885GPM hcGVydzEyMjQwXHBhcGVyaD K2IZEsQQ0cmoksWpEaMO5ae tgpCxBpXU0pawb6AjBySR5c cmdiNzIwXGhlYWRlcnkwXGZ dh1AykktqXR0rS1Gol7M7jW 9maXRcZGVmdGFiNzIwXGZvc t8fyMKtJMdbe8BsZFJ7daM8 dVMroQJeVSDuGU26Dbauf5R fBjliAYA6CDXrwvCzm1Tll2 upInMhscGsB8leX5BaESOrR EIlXZDjGnYlnoKqc0Kcc1Lv gWCksQk3b0nkMMYqUJHpdMw ei4zeYMX8DHObA5F1nQJtr7 sqCDbmQYFypAI0dovoJNeoS QZxvkY3corrXBtgMJVrpBF2 ykitPUyoFJSvQoP6pnenTVf oYIPdYTU4HAmrg856YCY1RV xzYmtwYWdlXHBnbmNvbnRcc GduZGVjXHBsYWluXHBsYWlu XGYwXGZzMjRccWxccGxhaW5 yJqAtYbFlQYuyPL4nUWInL9 bzzSBoLOXnCMUsM5xsHxGkx M1myXofTMogqhHkFKKtnUup eJCqOUZhQ9x8AgjpJGF2 SPECIMEN SOURCE (test s4jkbTWcIKIeoMEmHnFoUGD code = 3377) sKDAvh0efJNSoaWOwFlYdGx NcZnRuYmpcdWMxXGRlZmYwe 5tmb168sOIbr9xoOYAqUpY8 tVAoABTcmTIjR141q7hsu1f bprMqaQB6RVZkJKJ0VYvmjw TiujJ2WVhkbLOaOeR5LUppu rEkOSllgfXumsBlFdd8OZAz W280YMS2nKwdw1uzPNY0SMC cMIOhFpPsMs9rbBNkU991QP CzXDDJELRinUh9SWBhxpVtw rBqyWDTc619W176w8wmWINl wlRqdSuBdlobv7xjG670RYR hcGVydzEyMjQwXHBhcGVyaD C2EEPxPY7yxodnMeIaLH8di wxnMeMwYK7bnzi0TkUdOH0s cmdiNzIwXGhlYWRlcnkwXGZ vz1LqrwvbQL0uY0Teb6Y6pT 9maXRcZGVmdGFiNzIwXGZvc b0kiNYkRVgut8ZjXVX7ksA6 hPCdkVZkSFPqHC09Kzyqm8D iVlugDQV4HJLudaLwl4Sga7 guRrApviUiR5cvV3WnMFKaI ZQcOCJsZmVnsuUis3Yey2Li kWHcrKo9o6emJWHvIEDhuPw tb2tjTCQ9BSBvZ6P4lDHwa4 slRRyaHGTvdZS3jlspPBgbG EAcmsT2szdaDGgiLZZhyJE3 ojnmESjxDXDuBwP1qatmRHm rDKAkUTI4JLmxa920LUA3TA xzYmtwYWdlXHBnbmNvbnRcc GduZGVjXHBsYWluXHBsYWlu XGYwXGZzMjRccWxccGxhaW5 fGkCcXsGcUBbtCO4bYKEzV4 ezzARfXUQbQSQkK7qpUaMpt X8wbNinEKkzwnCoEMMqVNJa BVPrUV1eUb3lXFThSzpopdt ghFDxqF62DLOrcX2yAK1iPk 4gTHVuZywgcmlnaHQgbWlkZ XqbSScgXuWzZYWrRLm3umkn MXOoQ3x0HVPtrGDoGXraEmA gXHBhcn0= GROSS DESCRIPTION f8qufGHaTKXldUPoAlRePPL (test code = 3366) gMLJic8rmJFIfxOLoYuMdDs NcZnRuYmpcdWMxXGRlZmYwe 8nug513tIPjt8hmEEVnZoY0 cOJrOXVvfOEaU703KNSsCAs av9jce6PoZPRxmLYos6X3ZR WVspvfcVy1lUiyB48nc2P0B tqsE6jlHEVmXDZaG0IyRE5k ELHkOjj4GSG3TXW0VHQuOTO hJ1KwUW8oKQQshMYcCZg9s5 oabQgbUNFwTKN5w4dzDJfku aYhIV4eey0aoTp5h5fwzeKc LLHrDJUajGPZSMBiV1PoiSp vVp0fkMd5tCyfIbewARX1Df o3PX8qio33oxc1tNysMHRjz nloDzW9YKpxHREotizsRNn3 MFxtYXJnbDcyMFxtYXJncjc yMFxtYXJndDcyMFxtYXJnYj mnOUmgNJQpGVH0EBewg487O VP3GUqrh0gfj8misAYrXix2 UTGdItWuRkwqPNzhc3Onc7f gMINmtf4jSMT7xWQbmQyrh3 D3kLYfDDNdvCYvpkHiUAIjL zK7ESdyMZ3vvw93FGYtPOR2 su0cfGWgfQnetaRlaOMwBVh nX6StJPWvc982ZUMsX2RhWM Guz9M1reJbFvIrADTifOD8p rE6TJQjJQd3uXBbzoP3zmUb iHPnP6oeiC76KdXoqTMkN6S dfR96DuTxgOVqM1NhaM67Rh GbyEXoD1EakI06PaLnlBYuG JTilFJzAm8quPHnyTFil2Wd mXZzWOejY95xw317AQYcefD kG6ubkWUxuizgmEQqoczyZM ezbjG8XGm5icQmfjpfuOmlj GFpblxmMVxmczIwXGxhbmcx IDKqYVmoF2loWbReXNUcmQw oEMwgt4PqCERpWJFiZrDdGA 8qHwEvTTo0YCSuwH7hDj6nf COyaZ5zgTJcZSvfGOV5iJXb JURtPIYrVCPaGH01C7ToevX zPCyuUARdXLRzfQ2jGH52gB JlciBhbmQgInBhcmlldGFsI HBsZXVyYSIgaXMgYSAxLjUg iIJqEntvyLGnXbHkI58uyB9 pfLftzaVfJuM6II5abTrhxr ZycCXuk39zqNIyLU0cqDXhz Xcuy8FiICN2mOdfkPTvitAi osLpkmCscVYtpEFqiNI8TLF slX6iGGYxOXYppdulAMLjPl 9cZnZgSGm6TZYthY0dBv3iz SOfkT5xlPQoSHneQVB3xCVu AZWlBQXvCVSyTL81E3FhlhO uNBetGQEtQCLotW5oAP66uL XborMshcPhTwAfZ0j2UVflx 2CyFMlxSkMkTFgeEZQsOY0p RHxwRs1nJJeaSF9sPPKpOEM uoiNnv37lx1VcpCFuUBEvnf oyMCQnT8JsjMeegGJqt4Sbi GFnaWMsIGZpYnJvbWVtYnJh bj95mrR3bCKucYSpGPehiTJ gDAfqOTKkzQuyVAv8YQP5Fh 7gqCQbYNRbiiVURV7HCb6hI HBhclxwYXJccGFyZFxwbGFp qbcmIFzlthB4OMVaZOppXZO xXGZzMjBcbGFuZzEwMzNcaG ljaFxmMVxkYmNoXGYxXGxvY 2hcZjFcZnMyMCBDLiBSZWNl oBEoFDUhdwGvy2JsWHkdkxG sYWJlbGVkIHdpdGggdGhlIH HmzQknpeAeonTjXQ7rUGDuO 5Ndz3Pyl32gmeVzSiRdVCZf ZCAibHVuZywgcmlnaHQgbWl kZGxlIGxvYmUiIGlzIGEgMy 20FXnyBG16TIwsDZ7eKWAcU STqzyAwe09nl2VqsASaXZVs zvlfDhchkd0qCS1coqAek0W tCQLel8I4BJtvg7ffY9ptsH JsYZ41lDQmxZbgc4PenKf6r GVkIGluIEMxLiBccGFyXHBh ciBELiBSZWNlaXZlZCBpbiB mf8QbRAyebrDgLIJhnZKnPA dpdGggdGhlIHBhdGllbnQnc iGeBB7kLQBiH6Lvf6Lxn08j bnVtYmVyIGFuZCAicmlnaHQ ejYYqZVBfmV2gQTWfwDTgWZ AyLjMgeCAwLjcgeCAwLjIgY 86afGZuXQGwgesuFndstp6x UY9vmnVab3CfQUPil1G8GGk ti8xeT8leqIOhCT11iDUbbJ uek1AlrEl3iSHyXIzjCSPeX zMPLI8ikoEdvXUzxJ== MICROSCOPIC a2owxCLnWEOulMHjLnPiTCM DESCRIPTION (test code xWTToe8pxSUAdwAHzQhAfCh = 3371) NcZnRuYmpcdWMxXGRlZmYwe 1wbf349qQHfj3usVTQgUoV2 aNFoBGBaoGHyO663i6dxh1z rzmIxbSR8TESaLGD9EKjtat SbgkC9ZKnzqQKhMtT7DXvuq bKzLGerkxBycdUsCyu4YLTf D719YKH1jAnbb2fyIQB6EZD lXBFmLkVgSo7jlIAjG052CT DkKJWJSXZtsRm0KSOpguRto hHtkITZj053N315p1cmEUYv tcDvjYbQkqpru8elE833FYL hcGVydzEyMjQwXHBhcGVyaD X6BAZyHK6oxhoiMeQqEL2lq lwgCdKiUV9dzpj9JpHaTE3j cmdiNzIwXGhlYWRlcnkwXGZ vm8XhaircWQ1jS9Hzi2Z6rS 9maXRcZGVmdGFiNzIwXGZvc y6idYHhVZbvl2WtOGH6rfO7 hKMzjOTnICSvQM04Swgkk4G bNoweUMV3VFLvbdFsi1Bxj3 puHdHpqgDrP5whB8HeYNBsT IYwZPOsSnQgdlBik3Wek8Dm jDWdiBw6m7ieJWSjFFItjSc qe2jkMFQ6ZFFcT8P8rCNqb5 pdFIsmBYFhxDV7zrrjROlaD CNtjrJ4zdckKUviIFOcgHO7 srwhJQleXKGsUmW8jijhLBz tXLCzMQB9JYwdu785VFQ3IE xzYmtwYWdlXHBnbmNvbnRcc GduZGVjXHBsYWluXHBsYWlu XGYwXGZzMjRccWxccGxhaW5 aQaSnFuAtZWarRX1gZPPjV1 fwiXStUJTwZASrX0rtCwLtw D4yuRjjUQzwyuAdDKTcozMx jh8hSU9gzPSfzC== Gross assessment was [facility] performed at ([facility], code = 2777) Department of Pathology, [address] [place] [address], Technical component [facility] was performed at ([facility], code = 2778) Department of Pathology, [address] [place] [address], Professional component [facility] was performed at ([facility], code = 2779) Department of Pathology, [address] [place] [address], [facility] Hospital[facility] [id number] 11:43:00Surgical Pathology Report Case: [id number] Authorizing Provider: Fernando Andrews MD Collected: 04/14/2019 1654 Ordering Location: [facility] Received: 04/15/2019 0933 PERIOPERATIVE SERVICES Pathologist: [...] DIAGNOSTIC ALTERATION. Signing Pathologist Direct Phone Line: [phone] X [phone], right.A. Pleura. B. Lung, right [...] tissue, which is entirely submitted in D1. PA/ewPerformed.[facility], Department of Pathology, [address] [place] [address], [facility], [facility] of [facility]ology, [address] [place] [address], [facility], Department of Pathology, [address] [place] [address], SDY, CHEST, 1 VIEW, NON [id number] 10:13:00Reason for exam:->s/p R VATSShould this be [...] cm proximal to the shruthi. Signed: Fredi Lucasepanni Verified Date/Time: 04/17/2019 10:13:50 Reading Location: [facility] Radiology Reading Room POCT- GLUCOSE [id number] 05:44:00 Test Item Value Reference Range Interpretation Comments POC-GLUCOSE METER 99 mg/dL 70-110 : TESTED A T [facility] 6720 (BEAKER) (test code = ILDA Calvert [facility], 1538) [address]: Nutrition And Dietetics Instructor/Techni aaron ID = [id number] for CINDAU CLARKE MISTRY BASIC METABOLIC [id number] 04:57:00 Test Item Value Reference Range Interpretation [...] S NOT APPLICABLE FOR DIALYSIS PATIEN TS. Nutrition And Dietetics Instructor ID - [id number] 04:36:00 Test Item Value Reference Range Interpretation Comments PHOSPHORUS (BEAKER) (test code = 3.8 mg/dL 2.3-4.7 604) Nutrition And Dietetics Instructor ID - [id number] 04:36:00 Test Item Value Reference Range Interpretation Comments MAGNESIUM (BEAKER) (test code = 2.3 mg/dL 1.6-2.6 627) Nutrition And Dietetics Instructor ID - [id number] 04:08:00 Test Item Value Reference Range Interpretation Comments PTT (test code = 59558-6) 41.6 22.5- 36.0 seconds H Lab Interpretation (test code = Abnormal 18489-9) [facility]APTT[facility] 04:08:00 Test Item Value Reference Range Interpretation Comments PARTIAL THROMBOPLASTIN TIME 41.6 seconds 22.5-36.0 H (BEAKER) (test code = 760) PROTHROMBIN TIME/[id number] 04:07:00 Test Item Value Reference Range Interpretation [...] for patients wiht mechanical heart valves.BLOOD GAS, [id number] 04:02:00 Test Item Value Reference Range Interpretation [...] 40.0 % CBC W/PLT COUNT & AUTO [id number] 03:56:00 Test Item Value Reference Range Interpretation [...] (BEAKER) (test code = 2801) Hemoglobin and [id number] 00:46:00 Test Item Value Reference Range Interpretation Comments Hemoglobin (test code = 7.7 13.7- 17.5 GM/DL L 786-4) Hematocrit (test code = 23.6 % 40.1-51 L 4544-3) DORI (test code = DORI) Nutrition And Dietetics Instructor ID - [id number] Lab Interpretation (test Abnormal code = 82419-5) [facility] HospitalHEMOGLOBIN AND [id number] 00:46:00 Test Item Value Reference Range Interpretation Comments HEMOGLOBIN (BEAKER) (test code = 7.7 GM/DL 13.7-17.5 L 410) HEMATOCRIT (BEAKER) (test code = 23.6 % 40.1-51.0 L 411) Nutrition And Dietetics Instructor ID - [id number]-GLUCOSE OLDHZ4852-39-58 00:22:00 Test Item Value Reference Range Interpretation Comments POC-GLUCOSE METER 98 mg/dL 70-110 : TESTED A T [facility] 6720 (BEAKER) (test code = ILDA [place], 1538) [address]: Nutrition And Dietetics Instructor/Techni aaron ID = [id number] for SAGA Y, SANDRA Prepare [id number] 23:54:00 Test Item Value Reference Range Interpretation Comments Unit ABO (test code = A Pos 2321107) UNIT NUMBER (test code = [id number] 934-0) Status (test code = 8268717) TX_TIMEINCHART Blood Bank Product (test code CRYOPRECIPITATE = 2263) PRODUCT CODE (test code = G9343T87 933-2) [facility] HospitalPrepare [id number] 23:54:00 Test Item Value Reference Range Interpretation Comments Unit ABO (test code = 3778622) A Pos UNIT NUMBER (test code = [id number] 934-0) Status (test code = 6782754) TX_TIMEINCHART Blood Bank Product (test code FFP = 2263) PRODUCT CODE (test code = X0876G19 933-2) [facility] [id number] 19:03:00 Test Item Value Reference Range Interpretation Comments POC-GLUCOSE METER 93 mg/dL 70-110 : TESTED A T [facility] 6720 (BEAKER) (test code = IL[place], 1538) [address]: Nutrition And Dietetics Instructor/Techni aaron ID = [id number] for DRU MONTE BASIC METABOLIC [id number] 17:08:00 Test Item Value Reference Range Interpretation [...] S NOT APPLICABLE FOR DIALYSIS PATIEN TS. Nutrition And Dietetics Instructor ID - [id number] 17:06:00 Test Item Value Reference Range Interpretation Comments PHOSPHORUS (BEAKER) 4.5 mg/dL 2.3-4.7 Specimen slightly (test code = 604) hemolyzed Nutrition And Dietetics Instructor ID - BSCBC W/PLT COUNT & AUTO [id number] 16:39:00 Test Item Value Reference Range Interpretation [...] (BEAKER) (test code = 2801) BLOOD GAS, [id number] 16:16:00 Test Item Value Reference Range Interpretation [...] (test code = 1819) 40.0 % POCT-GLUCOSE [id number] 13:36:00 Test Item Value Reference Range Interpretation Comments POC-GLUCOSE METER 93 mg/dL 70-110 : TESTED A T [facility] 6720 (BEAKER) (test code = IL[place], 1538) [address]: Nutrition And Dietetics Instructor/Techni aaron ID = [id number] for SHANNON GRANADOS MYLES Venous doppler arm, [id number] 10:57:26Ejection FractionSLEH ECHO HEARTLAB MKCKESSON CPACS Left [...] of Study 04/15/2019 Age 63 Visit Number [id number] Gender Male Accession Number [id number] Date of 1955 Referring Yonathan Najera Room Number 7A05 Physician TANIA Mccracken Fretted Instrument Inspector Aidee Ruggiero, RVT Interpreting Asia Tapia, Physician [...] in cm/s ; Diameters are measured in [facility] HEMOGLOBIN AND [id number] 09:42:00 Test Item Value Reference Range Interpretation Comments HEMOGLOBIN (BEAKER) (test code = 8.0 GM/DL 13.7-17.5 L 410) HEMATOCRIT (BEAKER) (test code = 24.1 % 40.1-51.0 L 411) Nutrition And Dietetics Instructor ID - [id number], CHEST, 1 VIEW, NON [id number] 06:37:00Reason for exam:->s/p R VATSShould this be [...] S NOT APPLICABLE FOR DIALYSIS PATIEN TS. Nutrition And Dietetics Instructor ID - DBSpecimen slightly [id number] 04:26:00 Test Item Value Reference Range Interpretation Comments PHOSPHORUS (BEAKER) (test code = 5.1 mg/dL 2.3-4.7 H 604) Nutrition And Dietetics Instructor ID - [id number] 04:26:00 Test Item Value Reference Range Interpretation Comments MAGNESIUM (BEAKER) (test code = 2.2 mg/dL 1.6-2.6 627) Nutrition And Dietetics Instructor ID - [id number] 04:09:00 Test Item Value Reference Range Interpretation Comments PARTIAL THROMBOPLASTIN TIME 35.4 seconds 22.5-36.0 (BEAKER) (test code = 760) PROTHROMBIN TIME/[id number] 04:08:00 Test Item Value Reference Range Interpretation [...] mechanical heart valves.CBC W/PLT COUNT & AUTO [id number] 03:57:00 Test Item Value Reference Range Interpretation [...] PERCENT (BEAKER) (test code = 2801) Calcium, [id number] 03:44:00 Test Item Value Reference Range Interpretation Comments Calcium, Ion (test code = 1993-) 1.09 mmol/L 1.12-1.27 L pH, Blood (test code = 80109-3) 7.44 Lab Interpretation (test code = Abnormal 89354-4) [facility] HospitalCALCIUM, [id number] 03:44:00 Test Item Value Reference Range Interpretation Comments CALCIUM IONIZED (BEAKER) (test 1.09 mmol/L 1.12-1.27 L code = 698) PH, BLOOD (BEAKER) (test code = 7.44 1810) BLOOD GAS, [id number] 03:44:00 Test Item Value Reference Range Interpretation [...] (test code = 1819) 40.0 % POCT-GLUCOSE [id number] 23:26:00 Test Item Value Reference Range Interpretation Comments POC-GLUCOSE METER 117 mg/dL 70-110 H : TESTED A T [facility] 6720 (BEAKER) (test code = IL[place], 1538) [address]: Nutrition And Dietetics Instructor/Techni aaron ID = [id number] for NEEL DAVALOS MS CBC W/PLT COUNT & AUTO [id number] 23:13:00 Test Item Value Reference Range Interpretation [...] PERCENT (BEAKER) (test code = 2801) [place] [id number] 17:48:17Enoch Chung NP 04/15/2019 5:50 PMCentral LineDate/Time: [...] called to verify the correct patient, procedure, equipment,wan support specialist and site/side marked as required.Indications: [...] NoneType of anesthesia: NoneGrafts or Implants: NoneCHI [facility] HospitalBASI METABOLIC [id number] 16:33:00 Test Item Value Reference Range Interpretation [...] S NOT APPLICABLE FOR DIALYSIS PATIEN TS. Nutrition And Dietetics Instructor ID - JOSE [id number] 16:29:00 Test Item Value Reference Range Interpretation Comments PHOSPHORUS (BEAKER) (test code = 5.0 mg/dL 2.3-4.7 H 604) Nutrition And Dietetics Instructor ID - JOSE EBLOOD GAS, [id number] 16:18:00 Test Item Value Reference Range Interpretation [...] 45.0 % CBC W/PLT COUNT & AUTO [id number] 16:17:00 Test Item Value Reference Range Interpretation [...] = 2801) RAD, CHEST, 1 VIEW, NON [id number] 14:28:00Reason for exam:- >hemothoraxShould this be performed [...] Cruz Verified Date/Time: 04/15/2019 14:28:00 Reading Location: [facility] Radiology Reading Room SPIN/CONCENTRATION CHARGE 2019-04-15 14:00:00 Test Item Value Reference Range Interpretation Comments Concentration charged (test code = Done 2657) [facility] [id number] 14:00:00 Test Item Value Reference Range Interpretation Comments CONCENTRATION CHARGED (BEAKER) (test Done code = 2657) Thromboelastograph (TEG)2019-04-15 13:00:00 Test Item Value Reference Range Interpretation Comments TEG Activated Clotting Time (test 5.0 4.0- 7.0 minutes code = 96409-6) TEG Fibrinogen Activity (test 75.9 61.0- 73.0 degrees H code = 47442-8) TEG Platelet Aggregation (test 69.6 55.0- 65.0 MM H code = 52771-9) TEG Fibrinolysis (test code = 0.1 % 0-5 76921-7) TEG-H Activated Clotting Time 5.1 4.0- 7.0 minutes (test code = 1411) TEG-H Fibrinogen Activity (test 76.0 61.0- 73.0 degrees H code = 1412) TEG-H Platelet Aggregation (test 65.7 55.0- 65.0 MM H code = 1413) TEG-H Fibrinolysis (test code = 4.1 % 0-5 1414) Lab Interpretation (test code = Abnormal 42777-3) [facility] HospitalTHROMBOELASTOGRAPH (TEG)2019-04-15 13:00:00 Test Item Value Reference [...] (test 4.1 % 0.0-5.0 code = 1414) [id number] 11:47:00 Test Item Value Reference Range Interpretation Comments Case Report (test code Medical Cytology Report = 104) Case: [id number] Authorizing Provider: Fernando Andrews MD Collected: 04/14/2019 1548 Ordering Location: [facility] Received: 04/15/2019 0913 PERIOPERATIVE SERVICES Pathologist: Sean Piedra MD Specimen: Pleural, Right, Multi loculated pleural effusions DIAGNOSIS (test code = b2dgdGWvMUWow2fmKDVjlRS 3220) uZzEwMzNcZnRuYmpcdWMxIH izazFgSVnzu9OsM7DlQqErK FxhbnNpXGRlZmxhbmcxMDMz GVW5klGcRBQrAOmsCEZmAZa nNb4cwAQynGesViKzSSCpn0 lhhsXJqkillZs9j1naOSVeN hI1iCVdLMdfN0zvraWefCEa HPZzGQr8jZ13ROGvgP5asTG cSHwazeCaTuN4UKaoQYXxQc V4DMXxnLZuNVIbP1bnGNNtQ FecXOPtHPmhtSAoCZF0kCli w9Q3hVXamSIjxXguKwHlSgP mNMJBb2NkLWp8oJunO6TpGF QzBdX3jBJvRZVeOBqrIFBiR FGounU0wE14COejklL7yVHo e4Bxp08yr873iC1gsUIvEWW 8GZYsSNJumFRsHBHfESE7UY ZlaZNxR3y6RsFalXKeD5N6O eFyiJFlQ7T5IlZlbTYlN8B5 QiNebEWxWXOvbQOmNw8jgZS luOGzqi9ajl67AWV5x2MmiU vkNFU5LRV3SaMeAa8elSImC XMzKZ7wGxZxmEQlKWQmzm84 sGwdIVvfjzQfcI0yOyZoIDC wxWBuSQWbNS9taBCxEKRcjZ 5ucmxjXHBnYnJkcmhlYWRcc EzdmfJmYy5amIwhXUP0MGyn R8ddyH7rSgP0RHbbQ3lreS7 tUJq9PJguyLC4MBQymX0lHZ 3fimxms5ecTlOhWQ3hkmhwx 3pwVmHqUA9ikdy1a9usUdOz IC5ztdmza3kjIcTvPUjtCFJ vshjmFHLtx7BvoroiIWXgr8 YgP2ZbbItaB84laUuvQ12bD ILzrLoxsU3trMnsxM9mXsDa ZnMyNFxxbFxwbGFpblxmMVx mczIwXGxhbmcxMDMzXGhpY2 jrUoTtFWUivGlpQSndy5SnM GYxXGZzMjAgUklHSFQgUExF TJEZAQTKCHAKKTOjL1rGS2V PFV4GZCjclZhpAUEiVYFkPN 8JK8FDGDUFIVJMUqIQDHnVH 05BTkNZXHBhciAgICAgIFBS GROTYEuQWV7GSOyjDiyQX7Y yxMSfbEifaqNiNPeol1UzYW tePVJaIW2oxKccYSNlUR0fX OUyX8ajxE1ydgk4PdBtTEGe RgE5LMRlfiR4Fqg9AKNvTYk ef2swo6XfBGZnSLk5kUqwDf DwGDEjc4irfpDtOeNfYJOaU UCoJPYafVPfR976t7yki1ow nmLpiYW9IAYpFHG4ZNbjxbD ylkG1CZplrEYxMlD7PHmpom AkDRxsymLeaaEkLrc3TOSfE 370CZP2aYdvs1qwPIC2BPEy AOUbYqJpLf8qeLVxZ509SKJ uIXAQKRCrmJe5GNWogmOamn QynFELt321C256n2oqGUBco cUrcDaQolegy9qxV836KWPk cGVydzEyMjQwXHBhcGVyaDE 5YNWpBN9yxiqgBDkxDDboJP WpcoF0FELilYQiQ7EtZCKeI E7riqcnZTW4XCeuJMQyUSY2 PiYwMFNgp4Pdqav0KpGhfz6 mwl85UPM1k6LfeJoqGLE4MH B8VjBtQd1eoEZvEWXqKY8cU wMhsFNfVWIeup03gMydPTbw BBY0EIUykgVdk8Wsp6qrNpD hqbCnI1imT2McPOPgAIOxMQ QhVaOqsvYbt8Aee1CjfSLzw Fp0n7lzJRFoBKOqzIyoz3ce AXD9ZUVsjOSsQ2eecF9iTXS gRO6rjzkvj6abPSxcWFvrYX LgmLY2pkG1RIVnkSDmQ8Uzc C9uHMDbGByvHWPxivz3XwRf Xx7aoWPhwFyjAQtdOwbgKXi lXHBnbmNvbnRccGduZGVjXH BsYWluXHBsYWluXGYwXGZzM jRccWxcbGFuZzEwMzNcaGlj wSdrQUmeJeNyIIRcHBzdO9x aVuCdPuXxYpm5YUXvyJZlWR UnTeh9ENBdyGRjXHRBdFpru Z2qFAWxcNstfR4moOW0ZBUq xsWpvZRIxF8bGCZNcY1lOfR 0UtMuScM1LUOuZXlZAQGhcr 19 CPT Code(s) (test code s5wvmXLaDFRcuDCwTnCvTVH = 3357) eCIUql5lcEBJanYFeEhUsEx NcZnRuYmpcdWMxXGRlZmYwe 5jjs571aHUdu2xpNXJyZyV2 aPRpDEWekSGbJ472m0qrt0j shkOouDB5HQDvRWK7BLcnbd BxmiL8HTujkLAuBpZ6MJspn cExHArjujZxjbIvGpg6GDFs V525TNL9pOqhk9xsZBR4TSG kEMHkGwOmRy8mkPFdG296FY MeRUJOMBTnpNk8QDJvvuOij hOufEYAd436D168b2isHUYw luCzlPpKibkpf9gnL606ICQ hcGVydzEyMjQwXHBhcGVyaD C4MEEjZI7liohmBbTqAB4oy ubjXwSaZP7owfd1JjJbDF7p cmdiNzIwXGhlYWRlcnkwXGZ ub9GkgpbgEL2uV7Jqr2M4oO 9maXRcZGVmdGFiNzIwXGZvc t1pnAKtLKrtd2NvXVQ8koP1 kNRsiHTjIAYcPZ92Ytoes4Q vFherEFX3UUAadmLct4Adw8 niMkWtwcYuT2okB1HaZMSlL AJsGLHmGuZnjsBux7Jxn7Ad rDIswFp3g9agKKQlFCVhoWt fx6nwYAI7TVGfK1R0sNQfy7 ykVRrlHMRxcIP2sfeiKIvgK DQqxjQ1jqdsYEjwDXUhcBF6 skkjDJhfAYYiTbZ7ljknXWh jWBXoYAC9ZLskv352BVV7GT xzYmtwYWdlXHBnbmNvbnRcc GduZGVjXHBsYWluXHBsYWlu XGYwXGZzMjRccWxccGxhaW5 hXiWpPuJjXTlaVP1wHFBxC0 odcAZhNXEkCVUlK8isNwIkp W2lfPwvLIijavLkONi9ATX7 XHBhcn0= CLINICAL DATA (test s6gppWEvJMUdgBDmEjLuVLZ code = 3356) sKRNcd0dvMUHfrWJuYhHzYi NcZnRuYmpcdWMxXGRlZmYwe 7ykq821uQMtz4hhKNCuOwJ7 kILfMWOlbEWnJ153QLXnKMr jw2ciy3EcSFPckJTva2X4ZI ANisvlhHu0wNchB11zn6Y8F mwiV6tdBXHyRJFcK6WdSV9t PWRtNjo5ZBD9KHF0XXCmYSK mB7LwEW5eMSFoiVZqNFi5k6 qvsIkxCUEgHIF1c5zxHBdli uMdLY9gbz2rrUe3x8cvgvOq QXXkZTNziDGZHOMmL7YylZq bHw4krUq4yIrmAbrqHOK9Fo o1CJ9tgs97bsa2oFwyLBQqb ufvNfG1DByrMEBioarjBVq4 MFxtYXJnbDcyMFxtYXJncjc yMFxtYXJndDcyMFxtYXJnYj ioUQszANErOSE6TIwlv596U XH5MSjbp9srs0sgoAFlXrc4 WOLfGuIfBywpENdau5Nbm2q xLPIhst3kUMY2pGGuySysh6 Q2aSExQLYxvLNijwZpIMDgT fV7CAnuPW2hgw85VTVcNKW6 xe0zpDBtnEorolIbqMQdGSk kL1JgFDTbq421SPYmJ4AaTS Bnc1L4ddUdApYpUUHjoKI5t mQ3EISsXJx7xNKzooD8xqCp yAEdD4qefZ15FjKmnPExU9U slZ99TvGkhFZmZ6QedR53Ei TpcSLjA7UutO42JwXieXXmL JPvlNJaHx7okAOopWQtu4Oj pMVgIRanD40ao711VDTlkqZ xH5bydNZxfkkxmWGlblciBW lotqE3YVGeZFHjKFjxLDPtY GZzMjBcbGFuZzEwMzNcaGlj bSjcCWceXdGwYBSoRSmtI2s cZjFcZnMyMCBSaWdodCBtdW i9aDNfv6Y0vGR9UTVunFcyw POqkTXwFgU8w5ctkxCwTXLr IEReh35oDKotFZE4dAIrwsE zcGlyYXRvcnkgZmFpbHVyZV xwYXJ9 SPECIMEN SOURCE (test q5dbrEBwUEUdmKNzPhEqXHM code = 3377) qEWHor8eqDWKssKFvZgUgMg NcZnRuYmpcdWMxXGRlZmYwe 9mek431xFMaa6vdKTGsDaP9 uEBkJPDhgQCjS471y3lqh1z dwxNyiKQ7PJVpJNX8IXvvsg JtydF8IGrudDErJeD0HZbis dDuCOiimmFtkmAbYaw1WZYw Q854XHQ6wBxef2egQFC8FHP fIHLdRaVwVi7fvSFwI218ND XpZSCVLCTreNp2XOIyhzAji kYyrETVr878G906n9evCLKx ujWtqHhOdgrvy9zyO085KPV hcGVydzEyMjQwXHBhcGVyaD Z2WTWkRK1rcgplBeZiCK7ia boiKoJkNK1ouxt5DoAsCR7b cmdiNzIwXGhlYWRlcnkwXGZ ca4VinyikXD3gN9Dze3S1oZ 9maXRcZGVmdGFiNzIwXGZvc r7htKQhZOgja1MaMQF6okA1 aZFilYDyMYExXO68Wpvqi1Y xRkmkOBQ1ATYxohSoc1Seb7 gvKgVhnjXgI9cgG0TtYSOxM NKqLJVcGpOppyCyp6Zeu5Io fBXejJn8o7qoTIIvHSSftDa kz1mkQVY3DOHzN0X0vSRrt7 fuVLozTBJwrAO3kgokBEktG CSefvX3hpioUGhtXHQwnZY4 goufLWreKVOuEhE4plubNMs hZVIgRBT7ZVuop739NJB4UQ xzYmtwYWdlXHBnbmNvbnRcc GduZGVjXHBsYWluXHBsYWlu XGYwXGZzMjRccWxccGxhaW5 iZiKfKdCyBTksMB3eNKSzB2 utqIZwJFGqFBZzG0brQfPsv F5lpBsmSYqelfZgRFXJI7sU IFBMRVVSQUwgRkxVSURccGF yfQ== GROSS DESCRIPTION b2lwsGGbXDUcvCSjEeRbNII (test code = 3366) eKJQdd8jxCRMckVItUdAoRd NcZnRuYmpcdWMxXGRlZmYwe 8ruw560xYFxo5rnUBLsZrR6 dLGjYUQpdMApZ284QXFlTAa sc4kuf8YuMKUhkYTsh4V3WG EKiwmceCt3aBsyW79za4U3I rtaC5krJELeNCVaC6OyGF2o DOLpXzh9NQA1ERS5ZGVlZTC jR1KqIY5fEORejEHnXZh9e3 iduKxoSXUdOQJ1d9xoQHdzx sPfBP3gqy6euPj4h3vsyhZb PHZbYLPsiYZQFJUnI6VtjFi aYj4blPa9rVgrGdimBKI1Fc h4EQ2sbz69hxq4kZlaWKVct vpyThJ0DMriGJItxezaVQk8 MFxtYXJnbDcyMFxtYXJncjc yMFxtYXJndDcyMFxtYXJnYj imEBwxMNKxBJM9UWxjb831H AG7IEbuo8loi8oowPNdYek0 TQOrElZbRrpmMOisx9Goq3l kHTNkzn7cATI5zFDmiIbro3 V1jLAkCPGbnLRhllBpJWGmP jA7ONreFR7bnu22ZMAfFXI3 rw1hwUXmnIeoiaPioDSeDBd mP0FoAFRfw024ZRUdB5AaDM Uke7Z1uoRcEaXhGOOqqJM8y dD8OGWsFZj4iDPifgC2cdHl oHTtY8lxmG06StTpjZJcE8C tkE47BqFhzDRdK9EtgM08Ho IqzTZuC9NafN82OhPmvEYfE RXxiKLjBs6kzDZgcBItu0Al zYOhUCvqE62dj480OUFnwwZ hA9cgvEMhagazwJKjbukhCJ puigS4PMHgRGXbUYafFFZsC GZzMjJcbGFuZzEwMzNcaGlj pNmpABjdShHdDVNtVRouQ0e wAeQwUbPiAiS7JMPmpYatPO Hcc57fqNohNYMtfOEea1Msg vYstCOzURJfqNdoE2DqFRhi MDIxNzIwXHBhciBSZWNlaXZ lZDogMDIxODIwXHBhcn0= STATEMENT OF ADEQUACY Satisfactory (test code = 2757) Gross assessment was [facility] performed at ([facility], code = 2777) Department of Pathology, [address] [place] [address], Technical component [facility] was performed at ([facility], code = 2778) Department of Pathology, [address] [place] [address], Professional component [facility] was performed at ([facility], code = 2779) Department of Pathology, [address] [place] [address], [facility] 11:47:00Medical Cytology Report Case: [id number] Aut horizing Provider: Fernando Andrews MD Collected: 04/14/2019 1548 Ordering Location: [facility] Received: 04/15/2019 0913 PERIOPERATIVE SERVICES Pathologist: Sean Piedra MD Specimen: Pleural, Right, Multi loculated pleural effusions RIGHT PLEURAL FLUID (CYTOSPINS): - NEGATIVE FOR MALIGNANCY PREDOMINANTLY BLOOD Signing Pathologist Direct Phone Line: [phone] signed by Sean Piedra MD on 04/15/2019 at 11:47 [id number] multi loculated pleural effusions, pneumonia, acute respiratory failureRIGHT PLEURAL MLMRP386 mls bloody; 4 cytospinsCollected: [id number]: [id number],Department of Pathology, [address] [place] [address], [facility], [facility] of [facility]ology, [address] [place], [place] [address], [facility], Department of Pathology, [address] [place], [place] [address], DRER-GLUCOSE [id number] 11:33:00 Test Item Value Reference Range Interpretation Comments POC-GLUCOSE METER 113 mg/dL 70-110 H : TESTED A T [facility] 6720 (BEAKER) (test code = ILDA Cal[place], 1538) [address]: Nutrition And Dietetics Instructor/Techni aaron ID = [id number] for JIGNA ALEJANDRE CBC W/PLT COUNT & AUTO [id number] 09:14:00 Test Item Value Reference Range Interpretation [...] PERCENT (BEAKER) (test code = 2801) CALCIUM, [id number] 06:51:00 Test Item Value Reference Range Interpretation Comments CALCIUM IONIZED (BEAKER) (test 1.11 mmol/L 1.12-1.27 L code = 698) PH, BLOOD (BEAKER) (test code = 7.47 1810) RAD, CHEST, 1 VIEW, NON [id number] 05:32:00Reason for exam:->s/p R VATSShould this be performed at the bedside?->YesFINAL REPORT CLINICAL INDICATION: Postop Comparison: 04/14/20192031 hours The cardiomediastinal contours are stable. Right-sided parenchymal and pleural opacities are similar toprevious. A small right pneumothorax is noted at the lateral mid to upper chest. Support lines are stable. Signed: Reji Tyler [facility] Verified Date/Time: 04/15/2019 05:32:15 BLOOD GAS, [id number] 05:01:00 Test Item Value Reference Range Interpretation [...] code = 1819) 100.0 % Lactic Acid, [id number] 04:56:00 Test Item Value Reference Range Interpretation Comments Lactate, Art (test code = 1.2 mmol/L 0.5-2.2 2874) DORI (test code = DORI) Nutrition And Dietetics Instructor ANGELI BOWERS M Lab Interpretation (test Normal code = 89297-3) [facility] HospitalBASI METABOLIC [id number] 04:56:00 Test Item Value Reference Range Interpretation [...] S NOT APPLICABLE FOR DIALYSIS PATIEN TS. Nutrition And Dietetics Instructor ID - ELISSA MLACTIC ACID, [id number] 04:56:00 Test Item Value Reference Range Interpretation Comments LACTATE BLOOD ARTERIAL (2) 1.2 mmol/L 0.5-2.2 (BEAKER) (test code = 2874) Nutrition And Dietetics Instructor ID - ELISSA [id number] 04:53:00 Test Item Value Reference Range Interpretation Comments PHOSPHORUS (BEAKER) (test code = 4.3 mg/dL 2.3-4.7 604) Nutrition And Dietetics Instructor ID - ELISSA [id number] 04:53:00 Test Item Value Reference Range Interpretation Comments MAGNESIUM (BEAKER) (test code = 2.0 mg/dL 1.6-2.6 627) Nutrition And Dietetics Instructor ID - ELISSA MCBC W/PLT COUNT & AUTO [id number] 04:41:00 Test Item Value Reference Range Interpretation [...] 0-1 PERCENT (BEAKER) (test code = 2801) [id number] 02:37:00 Test Item Value Reference Range Interpretation Comments Fibrinogen (test code = 3255-7) 177 mg/dl 225-434 L Lab Interpretation (test code = Abnormal 60413-4) [facility] HospitalPT/[id number] 02:37:00 Test Item Value Reference Range Interpretation Comments Protime (test code = 19.8 11.9- 14.2 H 5902-2) seconds INR (test code = 1.7 <=5.9 6301-6) PTT (test code = 41.1 22.5- 36.0 H 93068-2) seconds DORI (test code = DORI) Effective 07/24/2018: PT Reference Range ChangeNew: 11.9-14.2 Previous: 11.7-14.7 RECOMMENDED COUMADIN/WARFARIN INR THERAPY RANGESSTANDARD DOSE: 2.0-3.0 Includes: PROPHYLAXIS for venous thrombosis, systemic embolization; TREATMENT for venous thrombosis and/or pulmonary embolus.HIGH RISK: Target INR is 2.5-3.5 for patients wiht mechanical heart valves. Lab Interpretation Abnormal (test code = 99199-7) [facility] HospitalFIBRINOGEN2020-02-18 02:37:00 Test Item Value Reference Range Interpretation Comments FIBRINOGEN LEVEL (BEAKER) (test 177 mg/dl 225-434 L code = 658) [id number] 02:37:00 Test Item Value Reference Range Interpretation [...] INR is2.5-3.5 for patients wiht mechanical heart valves.[id number] 02:37:00 Test Item Value Reference Range Interpretation Comments PARTIAL THROMBOPLASTIN TIME 41.1 seconds 22.5-36.0 H (BEAKER) (test code = 760) PROTHROMBIN TIME/[id number] 02:36:00 Test Item Value Reference Range Interpretation [...] mechanical heart valves.CBC W/PLT COUNT & AUTO [id number] 01:17:00 Test Item Value Reference Range Interpretation Comments WHITE BLOOD CELL COUNT 10.9 K/ L 3.5-10.5 H (BEAKER) (test code = 775) RED BLOOD CELL COUNT 1.74 M/ L 4.63-6.08 L (BEAKER) (test code = 761) HEMOGLOBIN (BEAKER) 4.4 GM/DL 13.7-17.5 LL Post jordy stevie (test code = 410) specimen p er B.no.[id number]. HEMATOCRIT (BEAKER) 14.6 % 40.1-51.0 L (test [...] GRANULOCYTES-RELATIVE PERCENT (BEAKER) (test code = 2801) [id number] 00:58:00 Test Item Value Reference Range Interpretation Comments Cortisol, Total (test code = 10.6 ug/dL 3.7-19.4 2755) DORI (test code = DORI) Nutrition And Dietetics Instructor ID - BS Lab Interpretation (test Normal code = 84394-0) [facility] HospitalCORTISOL2020-02-18 00:58:00 Test Item Value Reference Range Interpretation Comments CORTISOL, TOTAL (BEAKER) (test 10.6 ug/dL 3.7-19.4 code = 2755) Nutrition And Dietetics Instructor ID - BSPOCT-GLUCOSE [id number] 00:35:00 Test Item Value Reference Range Interpretation Comments POC-GLUCOSE METER 105 mg/dL 70-110 : TESTED A T [facility] 6720 (BEAKER) (test code = IL[place], 1538) [address]: Nutrition And Dietetics Instructor/Techni aaron ID = [id number] for gabinoYuli RAD, CHEST, 1 VIEW, NON [id number] 22:34:00On arrival to [facility] for exam:->s/p R VATS decorticationShould this be performed at the [facility] e?->YesFINAL REPORT TECHNIQUE: Frontal view of [...] lateral chest soft tissue changes. Signed: Anton Garcia MDReport Verified Date/Time: 04/14/2019 22:34:49 Reading Location: [address] Consult Reading Room [id number] 20:24:00 Test Item Value Reference Range Interpretation Comments PHOSPHORUS (BEAKER) (test code = 4.0 mg/dL 2.3-4.7 604) Nutrition And Dietetics Instructor ID - [id number] 20:24:00 Test Item Value Reference Range Interpretation Comments MAGNESIUM (BEAKER) (test code = 1.8 mg/dL 1.6-2.6 627) Nutrition And Dietetics Instructor ID - BSBLOOD GAS, [id number] 20:22:00 Test Item Value Reference Range Interpretation [...] (test code = 1819) 80.0 % CALCIUM, [id number] 20:19:00 Test Item Value Reference Range Interpretation Comments CALCIUM IONIZED (BEAKER) (test 1.23 mmol/L 1.12-1.27 code = 698) PH, BLOOD (BEAKER) (test code = 7.44 1810) COMPREHENSIVE METABOLIC [id number] 19:53:00 Test Item Value Reference Range Interpretation [...] S NOT APPLICABLE FOR DIALYSIS PATIEN TS. Nutrition And Dietetics Instructor ID - BSHGB/HCT (H&H)-Stat [id number] 17:56:00 Test Item Value Reference Range Interpretation Comments Hemoglobin (test code = 786-4) 9.0 g/dL 13-16.8 L Hematocrit (test code = 4544-3) 26.0 % 40-50 L Lab Interpretation (test code = Abnormal 97553-1) [facility] HospitalPotassium-Stat [id number] 17:56:00 Test Item Value Reference Range Interpretation Comments Potassium (test code = 2823-3) 3.4 meq/L 3.6-5.5 L Lab Interpretation (test code = Abnormal 73685-3) [facility] HospitalBLOOD GAS, [id number] 17:56:00 Test Item Value Reference Range Interpretation [...] (test code = 1819) 100.0 % CALCIUM, [id number] 17:56:00 Test Item Value Reference Range Interpretation Comments CALCIUM IONIZED (BEAKER) (test 1.30 mmol/L 1.12-1.27 H code = 698) PH, BLOOD (BEAKER) (test code = 7.46 1810) POTASSIUM-STAT [id number] 17:56:00 Test Item Value Reference Range Interpretation Comments POTASSIUM (BEAKER) (test code = 3.4 meq/L 3.6-5.5 L 379) HGB/HCT (H&H) - STAT [id number] 17:56:00 Test Item Value Reference Range Interpretation Comments HEMOGLOBIN (BEAKER) (test code = 9.0 g/dL 13.0-16.8 L 410) HEMATOCRIT (BEAKER) (test code = 26.0 % 40.0-50.0 L 411) Glucose-Stat [id number] 17:55:00 Test Item Value Reference Range Interpretation Comments Glucose (test code = 2345-7) 100 mg/dL 70-110 Lab Interpretation (test code = Normal 15595-6) [facility] [id number] 17:55:00 Test Item Value Reference Range Interpretation Comments Sodium (test code = 2951-2) 138 meq/L 135-148 Lab Interpretation (test code = Normal 41482-1) [facility] HospitalGLUCOSE-STAT [id number] 17:55:00 Test Item Value Reference Range Interpretation Comments GLUCOSE RANDOM (BEAKER) (test code 100 mg/dL 70-110 = 652) SODIUM NA-STAT [id number] 17:55:00 Test Item Value Reference Range Interpretation Comments SODIUM (BEAKER) (test code = 381) 138 meq/L 135-148 BLOOD GAS, [id number] 16:42:00 Test Item Value Reference Range Interpretation [...] (test code = 1819) 100.0 % POTASSIUM-STAT [id number] 16:42:00 Test Item Value Reference Range Interpretation Comments POTASSIUM (BEAKER) (test code = 3.4 meq/L 3.6-5.5 L 379) HGB/HCT (H&H) - STAT [id number] 16:42:00 Test Item Value Reference Range Interpretation Comments HEMOGLOBIN (BEAKER) (test code = 10.1 g/dL 13.0-16.8 L 410) HEMATOCRIT (BEAKER) (test code = 30.0 % 40.0-50.0 L 411) CALCIUM, [id number] 16:41:00 Test Item Value Reference Range Interpretation Comments CALCIUM IONIZED (BEAKER) (test 1.12 mmol/L 1.12-1.27 code = 698) PH, BLOOD (BEAKER) (test code = 7.51 1810) GLUCOSE-STAT [id number] 16:39:00 Test Item Value Reference Range Interpretation Comments GLUCOSE RANDOM (BEAKER) (test code 104 mg/dL 70-110 = 652) SODIUM NA-STAT [id number] 16:39:00 Test Item Value Reference Range Interpretation Comments SODIUM (BEAKER) (test code = 381) 137 meq/L 135-148 GLUCOSE-STAT [id number] 15:31:00 Test Item Value Reference Range Interpretation Comments GLUCOSE RANDOM (BEAKER) (test code = 92 mg/dL 70-110 652) SODIUM NA-STAT [id number] 15:31:00 Test Item Value Reference Range Interpretation Comments SODIUM (BEAKER) (test code = 381) 135 meq/L 135-148 CALCIUM, [id number] 15:31:00 Test Item Value Reference Range Interpretation Comments CALCIUM IONIZED (BEAKER) (test 1.07 mmol/L 1.12-1.27 L code = 698) PH, BLOOD (BEAKER) (test code = 7.55 1810) BLOOD GAS, [id number] 15:31:00 Test Item Value Reference Range Interpretation [...] (test code = 1819) 100.0 % POTASSIUM-STAT [id number] 15:31:00 Test Item Value Reference Range Interpretation Comments POTASSIUM (BEAKER) (test code = 3.4 meq/L 3.6-5.5 L 379) HGB/HCT (H&H) - STAT [id number] 15:31:00 Test Item Value Reference Range Interpretation Comments HEMOGLOBIN (BEAKER) (test code = 10.2 g/dL 13.0-16.8 L 410) HEMATOCRIT (BEAKER) (test code = 30.0 % 40.0-50.0 L 411) RAD, CHEST, 1 VIEW, NON [id number] 10:51:00Reason for exam:->eval pleural effusionsShould this be [...] MDReport Verified Date/Time: 04/14/2019 10:51:03 Reading Location: [facility] Type and screen, automated 2019-04-14 02:31:00 Test Item Value Reference Range Interpretation Comments ABO/RH AUTOMATED (BEAKER) (test A NEGATIVE code = 2260) Ab Scrn (test code = 890-4) NEGATIVE [facility] [id number] 01:52:00 Test Item Value Reference Range Interpretation [...] S NOT APPLICABLE FOR DIALYSIS PATIEN TS. Nutrition And Dietetics Instructor ID - EMILIE [id number] 01:51:00 Test Item Value Reference Range Interpretation Comments PHOSPHORUS (BEAKER) (test code = 2.8 mg/dL 2.3-4.7 604) Nutrition And Dietetics Instructor ID - LCBECKY [id number] 01:51:00 Test Item Value Reference Range Interpretation Comments MAGNESIUM (BEAKER) (test code = 2.1 mg/dL 1.6-2.6 627) Nutrition And Dietetics Instructor ID - EMILIE LCBC W/PLT COUNT & AUTO [id number] 01:30:00 Test Item Value Reference Range Interpretation [...] PERCENT (BEAKER) (test code = 2801) PROTHROMBIN TIME/[id number] 01:26:00 Test Item Value Reference Range Interpretation [...] is2.5-3.5 for patients wiht mechanical heart valves.POCT-GLUCOSE [id number] 20:47:00 Test Item Value Reference Range Interpretation Comments POC-GLUCOSE METER 114 mg/dL 70-110 H : TESTED A T [facility] 6720 (BEAKER) (test code = ILDA Calvert [facility], 1538) [address]: Nutrition And Dietetics Instructor/Techni aaron ID = [id number] for ALBERTINA MEADE POCT-GLUCOSE [id number] 17:43:00 Test Item Value Reference Range Interpretation Comments POC-GLUCOSE METER 117 mg/dL 70-110 H : TESTED A T [facility] 6720 (BEAKER) (test code [facility], = 1538) [address]: Nutrition And Dietetics Instructor/Techni aaron ID = [id number] for LEWI S, [place] POCT-GLUCOSE [id number] 12:16:00 Test Item Value Reference Range Interpretation Comments POC-GLUCOSE METER 111 mg/dL 70-110 H : TESTED A T [facility] 6720 (BEAKER) (test code [facility], = 1538) [address]: Nutrition And Dietetics Instructor/Techni aaron ID = [id number] for LEWI S, [place] RAD, CHEST, 1 VIEW, NON [id number] 08:47:00Reason for exam:->right pleural effusion s/p TPAShould [...] Lucaseport Verified Date/Time: 04/13/2019 08:47:02 Reading Location: [facility] C013T Transitional Reading Room Electronically s igned [...] S NOT APPLICABLE FOR DIALYSIS PATIEN TS. Nutrition And Dietetics Instructor ID - KENMNepatic function [id number] 06:12:00 Test Item Value Reference Range Interpretation Comments Protein, Total (test code 5.5 6.0- 8.3 gm/dL L = 2885-2) Albumin (test code = 1.8 g/dL 3.5-5 L 36968-4) Total Bilirubin (test code 1.1 mg/dL 0.2-1.2 = 1975-2) Bilirubin, Direct (test 0.7 mg/dL 0.1-0.5 H code = 1968-7) Alkaline Phosphatase (test 157 U/L 40-150 H code = 6768-6) AST (test code = 1920-8) 38 U/L 5-34 H ALT (test code = 1742-6) 34 U/L 6-55 DORI (test code = DORI) Nutrition And Dietetics Instructor ID - CHELSEY Lab Interpretation (test Abnormal code = 40441-3) [facility] HospitalHEPATIC FUNCTION [id number] 06:12:00 Test Item Value Reference Range Interpretation [...] (test code = 34 U/L 6-55 347) Nutrition And Dietetics Instructor ID - KENNPOCT-GLUCOSE [id number] 06:10:00 Test Item Value Reference Range Interpretation Comments POC-GLUCOSE METER 126 mg/dL 70-110 H : [facility] (BEAKER) (test code = IL[place], 1538) [address]: Nutrition And Dietetics Instructor/Techni aaron ID = [id number] for CH UA, HENRISON CBC W/PLT COUNT & AUTO [id number] 06:07:00 Test Item Value Reference Range Interpretation [...] 0-1 PERCENT (BEAKER) (test code = 2801) [id number] 06:07:00 Test Item Value Reference Range Interpretation Comments PHOSPHORUS (BEAKER) (test code = 3.0 mg/dL 2.3-4.7 604) Nutrition And Dietetics Instructor ID - [id number] 06:07:00 Test Item Value Reference Range Interpretation Comments MAGNESIUM (BEAKER) (test code = 2.1 mg/dL 1.6-2.6 627) Nutrition And Dietetics Instructor ID - [id number] 05:52:00 Test Item Value Reference Range Interpretation Comments PARTIAL THROMBOPLASTIN TIME 32.7 seconds 22.5-36.0 (BEAKER) (test code = 760) POCT-GLUCOSE [id number] 17:32:00 Test Item Value Reference Range Interpretation Comments POC-GLUCOSE METER 83 mg/dL 70-110 : TESTED A T [facility] 6720 (BEAKER) (test code = IL[place], 1538) [address]: Nutrition And Dietetics Instructor/Techni aaron ID = [id number] for STOJ CIC, NADA Body fluid culture + gram [id number] 14:07:00 Test Item Value Reference Range Interpretation Comments Result (test code = No growth 6463-4) Gram Stain Result <1+ gram negative rods (test code = 1123) [facility] HospitalBODY FLUID CULTURE + GRAM [id number] 14:07:00 Test Item Value Reference Range Interpretation Comments CULTURE (BEAKER) (test No growth code = 1095) GRAM STAIN RESULT <1+ WBCs (BEAKER) (test code = 1123) GRAM STAIN RESULT <1+ gram negative rods (BEAKER) (test code = 47442) POCT-GLUCOSE [id number] 12:20:00 Test Item Value Reference Range Interpretation Comments POC-GLUCOSE METER 84 mg/dL 70-110 : TESTED A T [facility] 6720 (BEAKER) (test code = ILDA [place], 1538) [address]: Nutrition And Dietetics Instructor/Techni aaron ID = [id number] for STOJ CIC, NADA RAD, CHEST, 1 VIEW, NON [id number] 07:44:00Reason for exam:->eval pleural effusionsShould this be [...] Rivas MDReport Verified Date/Time: 04/12/201907:44:33 Reading Location: [address] Body Reading Room BASIC METABOLIC [id number] 06:46:00 Test Item Value Reference Range Interpretation [...] S NOT APPLICABLE FOR DIALYSIS PATIEN TS. Nutrition And Dietetics Instructor ID - ELISSA [facility] W/PLT COUNT & AUTO [id number] 06:45:00 Test Item Value Reference Range Interpretation [...] 0-1 PERCENT (BEAKER) (test code = 2801) [id number] 06:45:00 Test Item Value Reference Range Interpretation Comments PHOSPHORUS (BEAKER) (test code = 3.8 mg/dL 2.3-4.7 604) Nutrition And Dietetics Instructor ID - ELISSA [id number] 06:45:00 Test Item Value Reference Range Interpretation Comments MAGNESIUM (BEAKER) (test code = 2.1 mg/dL 1.6-2.6 627) Nutrition And Dietetics Instructor ID - ELISSA MPOCT-GLUCOSE [id number] 05:33:00 Test Item Value Reference Range Interpretation Comments POC-GLUCOSE METER 78 mg/dL 70-110 : TESTED A T [facility] 6720 (BEAKER) (test code = ILDA Calvert [facility], 1538) [address]: Nutrition And Dietetics Instructor/Techni aaron ID = [id number] for LEGA SPI, BARI POCT-GLUCOSE [id number] 00:19:00 Test Item Value Reference Range Interpretation Comments POC-GLUCOSE METER 78 mg/dL 70-110 : Notified RN/MD: TESTED (BEAKER) (test code = AT [facility] [address] [facility] 1538) [facility], 770 30: Nutrition And Dietetics Instructor/Techni aaron ID = [id number] for LEGA SPI, BARI POCT-GLUCOSE [id number] 17:51:00 Test Item Value Reference Range Interpretation Comments POC-GLUCOSE METER 89 mg/dL 70-110 : TESTED A T [facility] 6720 (BEAKER) (test code = [facility], 1538) [address]: Nutrition And Dietetics Instructor/Techni aaron ID = [id number] for RADHA CLAROS RAD, CHEST, 1 VIEW, NON [id number] 13:20:00Reason for exam:->eval pleural effusionsShould this be [...] Robert MDReport Verified Date/Time: 04/11/2019 13:20:58 ReadingLocation: [facility] Radiology Reading Room POCT-GLUCOSE METER 2019-04-11 12:21:00 Test Item Value Reference Range Interpretation Comments POC-GLUCOSE METER 82 mg/dL 70-110 : TESTED A T [facility] 6720 (BEAKER) (test code = [facility], 1538) [address]: Nutrition And Dietetics Instructor/Techni aaron ID = [id number] for RADHA CLAROS POCT-GLUCOSE [id number] 10:51:00 Test Item Value Reference Range Interpretation Comments POC-GLUCOSE METER 84 mg/dL 70-110 : TESTED A T [facility] 6720 (BEAKER) (test code = [facility], 1538) [address]: Nutrition And Dietetics Instructor/Techni aaron ID = [id number] for DANIELLE MIKE KING BASIC METABOLIC [id number] 08:47:00 Test Item Value Reference Range Interpretation [...] S NOT APPLICABLE FOR DIALYSIS PATIEN TS. Nutrition And Dietetics Instructor ID Sultana SCOTT [id number] 08:46:00 Test Item Value Reference Range Interpretation Comments PHOSPHORUS (BEAKER) (test code = 3.3 mg/dL 2.3-4.7 604) Nutrition And Dietetics Instructor ID Sultana SCOTT [id number] 08:46:00 Test Item Value Reference Range Interpretation Comments MAGNESIUM (BEAKER) (test code = 2.2 mg/dL 1.6-2.6 627) Nutrition And Dietetics Instructor ID Sultana SCOTT FPOCT-GLUCOSE [id number] 07:13:00 Test Item Value Reference Range Interpretation Comments POC-GLUCOSE METER 84 mg/dL 70-110 : TESTED A T [facility] 6720 (BEAKER) (test code = ILDA [place], 1538) 70702: Nutrition And Dietetics Instructor/Techni aaron ID = [id number] for SUBL ET, MARÍA CBC W/PLT COUNT & AUTO [id number] 06:26:00 Test Item Value Reference Range Interpretation [...] PERCENT (BEAKER) (test code = 2801) PROTHROMBIN [id number] 06:22:00 Test Item Value Reference Range Interpretation [...] is2.5-3.5 for patients wiht mechanical heart valves.POCT-GLUCOSE [id number] 00:28:00 Test Item Value Reference Range Interpretation Comments POC-GLUCOSE METER 97 mg/dL 70-110 : TESTED A T [facility] 6720 (BEAKER) (test code = ILDA Calvert [facility], 1538) 54891: Nutrition And Dietetics Instructor/Techni aaron ID = [id number] for MARÍA DON POCT-GLUCOSE [id number] 15:14:00 Test Item Value Reference Range Interpretation Comments POC-GLUCOSE METER 97 mg/dL 70-110 : TESTED A T [facility] 6720 (BEAKER) (test code = ILDA Calvert [facility], 1538) 65413: Nutrition And Dietetics Instructor/Techni aaron ID = [id number] for TONY Yañez JAVIER RAD, CHEST, 1 VIEW, NON [id number] 09:36:00Reason for exam:->eval pleural effusionsShould this be [...] MDReport Verified Date/Time: 04/10/2019 09:36:48 Reading Location: [facility] Radiology ReadingRoom BASIC METABOLIC PANEL 2019-04-10 06:20:00 [...] S NOT APPLICABLE FOR DIALYSIS PATIEN TS. Nutrition And Dietetics Instructor ID - [id number] 06:06:00 Test Item Value Reference Range Interpretation Comments PHOSPHORUS (BEAKER) (test code = 3.7 mg/dL 2.3-4.7 604) Nutrition And Dietetics Instructor ID - [id number] 06:06:00 Test Item Value Reference Range Interpretation Comments MAGNESIUM (BEAKER) (test code = 2.0 mg/dL 1.6-2.6 627) Nutrition And Dietetics Instructor ID - LACBC W/PLT COUNT & AUTO [id number] 05:54:00 Test Item Value Reference Range Interpretation [...] PERCENT (BEAKER) (test code = 2801) POCT-GLUCOSE [id number] 00:49:00 Test Item Value Reference Range Interpretation Comments POC-GLUCOSE METER 113 mg/dL 70-110 H : TESTED A T [facility] 6720 (BEAKER) (test code = [facility], 153) 04183: Nutrition And Dietetics Instructor/Techni aaron ID = [id number] for CL ARK, ALBERTINA POCT-GLUCOSE [id number] 17:50:00 Test Item Value Reference Range Interpretation Comments POC-GLUCOSE METER 86 mg/dL 70-110 : TESTED A T [facility] 6720 (BEAKER) (test code = [facility], 153) 19496: Nutrition And Dietetics Instructor/Techni aaron ID = [id number] for STOJ CIC, NADA FL, ESOPH, SWALLOW FUNCTION, WITH CINE OR [id number] 16:22:00Reason for exam:->dysphagia, on TFsFINAL REPORT Modified [...] MDReport Verified Date/Time: 04/09/2019 16:22:18 Reading Location: [facility] Radiology Reading Room POCT-GLUCOSE [id number] 12:00:00 Test Item Value Reference Range Interpretation Comments POC-GLUCOSE METER 97 mg/dL 70-110 : TESTED A T [facility] 6720 (BECH Mack) (test code = [employer] [facility], 1538) 87214: Nutrition And Dietetics Instructor/Techni aaron ID = [id number] for DUON G, PRISCILLA POCT-GLUCOSE [id number] 09:53:00 Test Item Value Reference Range Interpretation Comments POC-GLUCOSE METER 102 mg/dL 70-110 : TESTED A T [facility] 6720 (BEAKER) (test code = [email or web address] [place], 1538) 45811: Nutrition And Dietetics Instructor/Techni aaron ID = [id number] for DU GILBERTO, PRISCILLA RAD, CHEST, 1 VIEW, NON [id number] 07:20:00Reason for exam:->eval pleural effusionsShould this be [...] Sanz Verified Date/Time: 04/09/2019 07:20:55 Reading Location: [facility] Radiology Reading Room Electronically signed by: CHRISTIE Piña 04/09/2019 07:20 [id number] 06:48:00 Test Item Value Reference Range Interpretation Comments PHOSPHORUS (BEAKER) (test code = 2.8 mg/dL 2.3-4.7 604) Nutrition And Dietetics Instructor ID - [id number] 06:48:00 Test Item Value Reference Range Interpretation Comments MAGNESIUM (BEAKER) (test code = 1.8 mg/dL 1.6-2.6 627) Nutrition And Dietetics Instructor ID - GALAPBASIC METABOLIC [id number] 06:48:00 Test Item Value Reference Range Interpretation [...] S NOT APPLICABLE FOR DIALYSIS PATIEN TS. Nutrition And Dietetics Instructor ID - GALAPCBC W/PLT COUNT & AUTO [id number] 06:39:00 Test Item Value Reference Range Interpretation [...] PERCENT (BEAKER) (test code = 2801) POCT-GLUCOSE [id number] 06:29:00 Test Item Value Reference Range Interpretation Comments POC-GLUCOSE METER 70 mg/dL 70-110 : TESTED A T [facility] 6720 (BEAKER) (test code = [facility], 1538) 73925: Nutrition And Dietetics Instructor/Techni aaron ID = [id number] for CARROLL GRIMMA POCT-GLUCOSE [id number] 05:40:00 Test Item Value Reference Range Interpretation Comments POC-GLUCOSE METER 90 mg/dL 70-110 : TESTED A T [facility] 6720 (BEAKER) (test code = [facility], 1538) 67604: Nutrition And Dietetics Instructor/Techni aaron ID = [id number] for VAN KEARNEYID POCT-GLUCOSE [id number] 17:57:00 Test Item Value Reference Range Interpretation Comments POC-GLUCOSE METER 90 mg/dL 70-110 : TESTED A T [facility] 6720 (BEAKER) (test code = [facility], 1538) 74267: Nutrition And Dietetics Instructor/Techni aaron ID = [id number] for ADILSON PRUITT, NADA POCT-GLUCOSE [id number] 12:47:00 Test Item Value Reference Range Interpretation Comments POC-GLUCOSE METER 97 mg/dL 70-110 : TESTED A T [facility] 6720 (BEAKER) (test code = [facility], 1538) 15102: Nutrition And Dietetics Instructor/Techni aaron ID = [id number] for JAVIER IVY RAD, CHEST, 1 VIEW, NON [id number] 07:33:00Reason for exam:->eval pleural effusionsShould this be [...] MDReport Verified Date/Time: 04/08/2019 07:33:22 Reading Location: [facility] Radiology Reading Room POCT-GLUCOSE [id number] 05:33:00 Test Item Value Reference Range Interpretation Comments POC-GLUCOSE METER 97 mg/dL 70-110 : TESTED A T [facility] 6720 (BEAKER) (test code = ILDA [place], 1538) 67895: Nutrition And Dietetics Instructor/Techni aaron ID = [id number] for ELIAZAR DEY BASIC METABOLIC [id number] 05:33:00 Test Item Value Reference Range Interpretation [...] S NOT APPLICABLE FOR DIALYSIS PATIEN TS. Nutrition And Dietetics Instructor ID - [id number] 05:16:00 Test Item Value Reference Range Interpretation Comments PHOSPHORUS (BEAKER) (test code = 2.5 mg/dL 2.3-4.7 604) Nutrition And Dietetics Instructor ID - [id number] 05:16:00 Test Item Value Reference Range Interpretation Comments MAGNESIUM (BEAKER) (test code = 1.9 mg/dL 1.6-2.6 627) Nutrition And Dietetics Instructor ID - GALAPCBC W/PLT COUNT & AUTO [id number] 05:10:00 Test Item Value Reference Range Interpretation [...] PERCENT (BEAKER) (test code = 2801) POCT-GLUCOSE [id number] 00:34:00 Test Item Value Reference Range Interpretation Comments POC-GLUCOSE METER 111 mg/dL 70-110 H : TESTED A T [facility] 6720 (BEAKER) (test code = [facility], 1538) 53672: Nutrition And Dietetics Instructor/Techni aaron ID = [id number] for ELIAZAR ANAND BASIC METABOLIC [id number] 18:38:00 Test Item Value Reference Range Interpretation [...] S NOT APPLICABLE FOR DIALYSIS PATIEN TS. Nutrition And Dietetics Instructor ID - BSPOCT-GLUCOSE [id number] 17:48:00 Test Item Value Reference Range Interpretation Comments POC-GLUCOSE METER 113 mg/dL 70-110 H : TESTED A T [facility] 6720 (BEAKER) (test code = [facility] [place], 1538) 47256: Nutrition And Dietetics Instructor/Techni aaron ID = [id number] for MARQUIS SMITH FUNGUS CULTURE + [id number] 17:33:00 Test Item Value Reference Range Interpretation Comments CULTURE (BEAKER) A Same organi sm has been (test code = isolated from 1095) cultures(s) of the same body site and collection date . Repeat identification and susceptibility testing performed only after consultation wi the clinical microb iology laboratory. FUNGUS SMEAR No fungi seen (BEAKER) (test code = 1406) Refer to previous culture of Ana albicansAlbumin Pleural [id number] 16:52:00 Test Item Value Reference Range Interpretation Comments Albumin, Pleural Fluid (test code = 0.8 1748-3) [facility] [id number] 16:50:00 Test Item Value Reference Range Interpretation Comments PROTEIN, TOTAL, PLEURAL FLUID (test 2.6 code = 2882-9) [facility] [id number] 11:47:00 Test Item Value Reference Range Interpretation Comments POC-GLUCOSE METER 102 mg/dL 70-110 : TESTED A T [facility] 6720 (BEAKER) (test code = ILDA Calvert [facility], 1538) 54276: Nutrition And Dietetics Instructor/Techni aaron ID = [id number] for MARQUIS SMITH RAD, CHEST, 1 VIEW, NON [id number] 11:26:00Reason for exam:->S/p L chest tube removalFINAL [...] MDReport Verified Date/Time: 04/07/2019 11:26:55 Reading Location: [facility] Radiology Reading Room RAD, CHEST, 1 VIEW, NON [id number] 10:15:00Reason for exam:->eval pleural effusionsShould this be [...] Sanz Verified Date/Time: 04/07/2019 10:15:23 Reading Location: [facility] Radiology Reading Room 10:15 [id number] 08:15:00 Test Item Value Reference Range Interpretation Comments PHOSPHORUS (BEAKER) (test code = 3.3 mg/dL 2.3-4.7 604) Nutrition And Dietetics Instructor ID - PHILIP [id number] 08:15:00 Test Item Value Reference Range Interpretation Comments MAGNESIUM (BEAKER) (test code = 2.0 mg/dL 1.6-2.6 627) Nutrition And Dietetics Instructor ID - PHILIP CBASIC METABOLIC [id number] 08:15:00 Test Item Value Reference Range Interpretation [...] S NOT APPLICABLE FOR DIALYSIS PATIEN TS. Nutrition And Dietetics Instructor ID - FEB CCBC W/PLT COUNT & AUTO [id number] 07:40:00 Test Item Value Reference Range Interpretation [...] PERCENT (BEAKER) (test code = 2801) POCT-GLUCOSE [id number] 06:50:00 Test Item Value Reference Range Interpretation Comments POC-GLUCOSE METER 92 mg/dL 70-110 : TESTED A T [facility] 6720 (BEAKER) (test code = [facility], 1538) 99749: Nutrition And Dietetics Instructor/Techni aaron ID = [id number] for ELIAZAR DEY POCT-GLUCOSE [id number] 00:17:00 Test Item Value Reference Range Interpretation Comments POC-GLUCOSE METER 109 mg/dL 70-110 : TESTED A T [facility] 6720 (BEAKER) (test code = [facility], 1538) 09492: Nutrition And Dietetics Instructor/Techni aaron ID = [id number] for ELIAZAR ANAND POCT-GLUCOSE [id number] 18:05:00 Test Item Value Reference Range Interpretation Comments POC-GLUCOSE METER 100 mg/dL 70-110 : TESTED A T [facility] 6720 (BEAKER) (test code = [facility], 1538) 48533: Nutrition And Dietetics Instructor/Techni aaron ID = [id number] for RICARDO KEMP POCT-GLUCOSE [id number] 18:05:00 Test Item Value Reference Range Interpretation Comments POC-GLUCOSE METER 90 mg/dL 70-110 : TESTED A T [facility] 6720 (BEAKER) (test code = [facility], 1538) 32026: Nutrition And Dietetics Instructor/Techni aaron ID = [id number] for TORR AMAURY, EVANS BASIC METABOLIC [id number] 17:33:00 Test Item Value Reference Range Interpretation [...] S NOT APPLICABLE FOR DIALYSIS PATIEN TS. Nutrition And Dietetics Instructor ID - ALMA FERNANDEZAD, CHEST, 1 VIEW, NON [id number] 08:21:00Reason for exam:->eval pleural effusionsShould this be [...] unchanged. IMPRESSION:No significant interval change. Signed: Delaney Rajan Verified Date/Time: 04/06/2019 08:21:47 [id number] 07:38:00 Test Item Value Reference Range Interpretation Comments PHOSPHORUS (BEAKER) (test code = 3.7 mg/dL 2.3-4.7 604) Nutrition And Dietetics Instructor ID - SONIA [id number] 07:38:00 Test Item Value Reference Range Interpretation Comments MAGNESIUM (BEAKER) (test code = 2.1 mg/dL 1.6-2.6 627) Nutrition And Dietetics Instructor ID - SONIA FBASIC METABOLIC [id number] 07:38:00 Test Item Value Reference Range Interpretation [...] S NOT APPLICABLE FOR DIALYSIS PATIEN TS. Nutrition And Dietetics Instructor ID - BATTIEST FCBC W/PLT COUNT & AUTO [id number] 07:35:00 Test Item Value Reference Range Interpretation [...] PERCENT (BEAKER) (test code = 2801) POCT-GLUCOSE [id number] 05:27:00 Test Item Value Reference Range Interpretation Comments POC-GLUCOSE METER 89 mg/dL 70-110 : TESTED A T [facility] 6720 (BEAKER) (test code = IL[place], 1538) 42761: Nutrition And Dietetics Instructor/Techni aaron ID = [id number] for CANDIDO LEMUS BASIC METABOLIC [id number] 17:09:00 Test Item Value Reference Range Interpretation [...] S NOT APPLICABLE FOR DIALYSIS PATIEN TS. Nutrition And Dietetics Instructor ID - ELISSA MPOCT-GLUCOSE [id number] 11:34:00 Test Item Value Reference Range Interpretation Comments POC-GLUCOSE METER 104 mg/dL 70-110 : TESTED A T [facility] 6720 (BEAKER) (test code = IL[place], 1538) 07404: Nutrition And Dietetics Instructor/Techni aaron ID = [id number] for JIGNA ALEJANDRE BASIC METABOLIC [id number] 05:51:00 Test Item Value Reference Range Interpretation [...] S NOT APPLICABLE FOR DIALYSIS PATIEN TS. Nutrition And Dietetics Instructor ID - ELISSA [id number] 05:43:00 Test Item Value Reference Range Interpretation Comments PHOSPHORUS (BEAKER) (test code = 3.5 mg/dL 2.3-4.7 604) Nutrition And Dietetics Instructor ID - ELISSA [id number] 05:43:00 Test Item Value Reference Range Interpretation Comments MAGNESIUM (BEAKER) (test code = 1.9 mg/dL 1.6-2.6 627) Nutrition And Dietetics Instructor ID - ELISSA MCBC W/PLT COUNT & AUTO [id number] 05:28:00 Test Item Value Reference Range Interpretation [...] = 2801) RAD, CHEST, 1 VIEW, NON [id number] 04:46:00Reason for exam:->eval pleural effusionsShould this be [...] Stiles MDReport Verified Date/Time: 04/05/2019 04:46:52 POCT-GLUCOSE [id number] 23:55:00 Test Item Value Reference Range Interpretation Comments POC-GLUCOSE METER 103 mg/dL 70-110 : TESTED A T [facility] 6720 (BEAKER) (test code [facility], = 1538) 39172: Nutrition And Dietetics Instructor/Techni aaron ID = [id number] for SUGU , SHEENAMOL FUNGUS CULTURE + [id number] 18:09:00 Test Item Value Reference Range Interpretation Comments CULTURE (BEAKER) A 2+ Ana albicans (test code = 1095) FUNGUS SMEAR No fungi seen (BEAKER) (test code = 1406) RAD, ABDOMEN/KUB, 1 VIEW [id number] 18:03:00Reason for exam:->TFFINAL REPORT Abdomen date 04/04/2019 Comment: Frontal view of the abdomen demonstrates a feeding tube present with tip noted in the descending duodenum. Signed: Tomasa [place] Verified Date/Time: 04/04/2019 18:03:16 Reading Location: [address] Consult Reading Room XR abdomen / KUB 1 [id number] 18:03:00Interface, External Ris In - 04/04/2019 6:05 PM CSTFINAL REPORT Abdomen date04/04/2019 Comment: Frontal view of the abdomen demonstrates a feeding tube present with tip noted inthe descending duodenum. Signed: Prudence, Tomasa MDReport Verified Date/Time: 04/04/2019 18:03:16 Reading Location: [facility] [id number] 17:54:00 Test Item Value Reference Range Interpretation Comments POC-GLUCOSE METER 82 mg/dL 70-110 : TESTED A T [facility] 6720 (BEAKER) (test code = [place], 1538) 52262: Nutrition And Dietetics Instructor/Techni aaron ID = [id number] for MJ ERS, ISABELA BASIC METABOLIC [id number] 17:40:00 Test Item Value Reference Range Interpretation [...] S NOT APPLICABLE FOR DIALYSIS PATIEN TS. Nutrition And Dietetics Instructor ID - BSRAD, ABDOMEN/KUB, 1 VIEW [id number] 15:46:00Reason for exam:- >korpak placementFINAL REPORT RAD, [...] Garcia Verified Date/Time: 04/04/2019 15:46:45 Reading Location: [facility] Radiology Reading Room POCT-GLUCOSE [id number] 12:21:00 Test Item Value Reference Range Interpretation Comments POC-GLUCOSE METER 94 mg/dL 70-110 : TESTED A T [facility] 6720 (BEAKER) (test code = ILDA [place], 1538) 83759: Nutrition And Dietetics Instructor/Techni aaron ID = [id number] for SAND ERS, ISABELA RAD, CHEST, 1 VIEW, NON [id number] 08:56:00Reason for exam:->eval pleural effusion, CT in [...] Infante Verified Date/Time: 04/04/2019 08:56:32 Reading Location: [facility] Radiology Reading Room CBC W/PLT COUNT & [...] PERCENT (BEAKER) (test code = 2801) POCT-GLUCOSE [id number] 05:41:00 Test Item Value Reference Range Interpretation Comments POC-GLUCOSE METER 107 mg/dL 70-110 : TESTED A T [facility] 6720 (BEAKER) (test code = [place], 1538) 64706: Nutrition And Dietetics Instructor/Techni aaron ID = [id number] for EDISON BELTRAN [id number] 05:17:00 Test Item Value Reference Range Interpretation Comments PHOSPHORUS (BEAKER) (test code = 4.2 mg/dL 2.3-4.7 604) Nutrition And Dietetics Instructor ID - ELISSA [id number] 05:17:00 Test Item Value Reference Range Interpretation Comments MAGNESIUM (BEAKER) (test code = 1.9 mg/dL 1.6-2.6 627) Nutrition And Dietetics Instructor ID - ELISSA MBASIC METABOLIC [id number] 05:17:00 Test Item Value Reference Range Interpretation [...] S NOT APPLICABLE FOR DIALYSIS PATIEN TS. Nutrition And Dietetics Instructor ID - ELISSA MPOCT-GLUCOSE [id number] 00:06:00 Test Item Value Reference Range Interpretation Comments POC-GLUCOSE METER 109 mg/dL 70-110 : TESTED A T [facility] 6720 (BEAKER) (test code = [place], 1538) 67378: Nutrition And Dietetics Instructor/Techni aaron ID = [id number] for EDISON BELTRAN [id number] 20:00:00 Test Item Value Reference Range Interpretation Comments MAGNESIUM (BEAKER) 1.9 mg/dL 1.6-2.6 Specimen slightly (test code = 627) hemolyzed Nutrition And Dietetics Instructor ANGELI KAMARAOCT-GLUCOSE [id number] 17:14:00 Test Item Value Reference Range Interpretation Comments POC-GLUCOSE METER 114 mg/dL 70-110 H : TESTED A T [facility] 6720 (BEAKER) (test code = [facility], 1538) 28991: Nutrition And Dietetics Instructor/Techni aaron ID = [id number] for COLLIN ESCOBAR BASIC METABOLIC [id number] 16:17:00 Test Item Value Reference Range Interpretation [...] S NOT APPLICABLE FOR DIALYSIS PATIEN TS. Nutrition And Dietetics Instructor ID - BSPOCT-GLUCOSE [id number] 12:20:00 Test Item Value Reference Range Interpretation Comments POC-GLUCOSE METER 108 mg/dL 70-110 : TESTED A T [facility] 6720 (BEAKER) (test code = [facility], 1538) 99124: Nutrition And Dietetics Instructor/Techni aaron ID = [id number] for ZELDA STEFANI POCT-GLUCOSE [id number] 06:08:00 Test Item Value Reference Range Interpretation Comments POC-GLUCOSE METER 96 mg/dL 70-110 : TESTED A T [facility] 6720 (BEAKER) (test code = [facility], 1538) 52878: Nutrition And Dietetics Instructor/Techni aaron ID = [id number] for SUGU , SHEENAMOL RAD, CHEST, 1 VIEW, NON [id number] 05:49:00Reason for exam:->chest tubesShould this be performed [...] effusions. There is no pneumothorax. Signed: [facility]ia [facility] Verified Date/Time: 04/03/2019 05:49:51 [id number] 02:46:00 Test Item Value Reference Range Interpretation Comments PHOSPHORUS (BEAKER) (test code = 3.1 mg/dL 2.3-4.7 604) Nutrition And Dietetics Instructor ID - SANDRA [id number] 02:46:00 Test Item Value Reference Range Interpretation Comments MAGNESIUM (BEAKER) (test code = 1.8 mg/dL 1.6-2.6 627) Nutrition And Dietetics Instructor ID - SANDRA WBASIC METABOLIC [id number] 02:46:00 Test Item Value Reference Range Interpretation [...] S NOT APPLICABLE FOR DIALYSIS PATIEN TS. Nutrition And Dietetics Instructor ID - SANDRA WCBC W/PLT COUNT & AUTO [id number] 02:35:00 Test Item Value Reference Range Interpretation [...] PERCENT (BEAKER) (test code = 2801) POCT-GLUCOSE [id number] 00:12:00 Test Item Value Reference Range Interpretation Comments POC-GLUCOSE METER 87 mg/dL 70-110 : TESTED A T [facility] 6720 (BEAKER) (test code = [place], 1538) 43448: Nutrition And Dietetics Instructor/Techni aaron ID = [id number] for ANN BOLDENMOL [id number] 23:01:00 Test Item Value Reference Range Interpretation Comments PARTIAL THROMBOPLASTIN TIME 88.0 seconds 22.5-36.0 H (BEAKER) (test code = 760) BASIC METABOLIC [id number] 18:04:00 Test Item Value Reference Range Interpretation [...] S NOT APPLICABLE FOR DIALYSIS PATIEN TS. Nutrition And Dietetics Instructor ID - [id number] 17:41:00 Test Item Value Reference Range Interpretation Comments PARTIAL THROMBOPLASTIN TIME 75.2 seconds 22.5-36.0 H (BEAKER) (test code = 760) POCT-GLUCOSE [id number] 17:38:00 Test Item Value Reference Range Interpretation Comments POC-GLUCOSE METER 100 mg/dL 70-110 : TESTED A T [facility] 6720 (BEAKER) (test code = [facility], 1538) 86286: Nutrition And Dietetics Instructor/Techni aaron ID = [id number] for ELADIA WHELAN POCT-GLUCOSE [id number] 12:31:00 Test Item Value Reference Range Interpretation Comments POC-GLUCOSE METER 88 mg/dL 70-110 : TESTED A T [facility] 6720 (BEAKER) (test code = [facility], 1538) 96493: Nutrition And Dietetics Instructor/Techni aaron ID = [id number] for KEN KEARNEYA RAD, CHEST, 1 VIEW, NON [id number] 09:47:00Reason for exam:->naShould this be performed at the bedside?->YesFINAL REPORT Comparison: 04/01/2019 TECHNIQUE: Single view of the chest FINDINGS: Patchy interstitial opacities and small pleural effusions, right greater than left are stable. No gross pneumothorax. Interval removal of right internal jugular central line. Remaining support lines and tubes are stable. Signed: Aiden Willett Verified Date/Time: 04/02/2019 09:47:11 Reading Location: [facility] Radiology Reading Room 09:47 [id number] 08:29:00 Test Item Value Reference Range Interpretation Comments PARTIAL THROMBOPLASTIN TIME 41.5 seconds 22.5-36.0 H (BEAKER) (test code = 760) POCT-GLUCOSE [id number] 05:53:00 Test Item Value Reference Range Interpretation Comments POC-GLUCOSE METER 96 mg/dL 70-110 : TESTED A T [facility] 6720 (BEAKER) (test code = [facility], 1538) 34923: Nutrition And Dietetics Instructor/Techni aaron ID = [id number] for SUGU , SHEENAMOL [id number] 02:06:00 Test Item Value Reference Range Interpretation Comments PARTIAL THROMBOPLASTIN TIME 75.8 seconds 22.5-36.0 H (BEAKER) (test code = 760) [id number] 01:58:00 Test Item Value Reference Range Interpretation Comments PHOSPHORUS (BEAKER) (test code = 3.3 mg/dL 2.3-4.7 604) Nutrition And Dietetics Instructor ID - [id number] 01:58:00 Test Item Value Reference Range Interpretation Comments MAGNESIUM (BEAKER) (test code = 1.8 mg/dL 1.6-2.6 627) Nutrition And Dietetics Instructor ID - ASBASIC METABOLIC [id number] 01:58:00 Test Item Value Reference Range Interpretation [...] S NOT APPLICABLE FOR DIALYSIS PATIEN TS. Nutrition And Dietetics Instructor ID - ASBLOOD GAS, [id number] 01:35:00 Test Item Value Reference Range Interpretation [...] 21.0 % CBC W/PLT COUNT & AUTO [id number] 01:35:00 Test Item Value Reference Range Interpretation [...] PERCENT (BEAKER) (test code = 2801) POCT-GLUCOSE [id number] 00:00:00 Test Item Value Reference Range Interpretation Comments POC-GLUCOSE METER 100 mg/dL 70-110 : TESTED A T [facility] 6720 (BEAKER) (test code [facility], = 1538) 08613: Nutrition And Dietetics Instructor/Techni aaron ID = [id number] for SUGU , SHEENAMOL BASIC METABOLIC [id number] 19:33:00 Test Item Value Reference Range Interpretation [...] S NOT APPLICABLE FOR DIALYSIS PATIEN TS. Nutrition And Dietetics Instructor ID - [id number] 19:04:00 Test Item Value Reference Range Interpretation Comments PARTIAL THROMBOPLASTIN TIME 57.5 seconds 22.5-36.0 H (BEAKER) (test code = 760) POCT-GLUCOSE [id number] 18:18:00 Test Item Value Reference Range Interpretation Comments POC-GLUCOSE METER 105 mg/dL 70-110 : TESTED A T [facility] 6720 (BEAKER) (test code = ILDA Calvert [facility], 1538) 74620: Nutrition And Dietetics Instructor/Techni aaron ID = [id number] for WI LLIAMS, ELADIA POCT-GLUCOSE [id number] 11:54:00 Test Item Value Reference Range Interpretation Comments POC-GLUCOSE METER 90 mg/dL 70-110 : TESTED A T [facility] 6720 (BEAKER) (test code = ILDA Calvert [facility], 1538) 214[address]: Nutrition And Dietetics Instructor/Techni aaron ID = [id number] for PEG IAMS, ELADIA [id number] 11:32:00 Test Item Value Reference Range Interpretation Comments PARTIAL THROMBOPLASTIN TIME 70.7 seconds 22.5-36.0 H (BEAKER) (test code = 760) RAD, CHEST, 1 VIEW, NON [id number] 10:46:00Reason for exam:->CT in placeShould this be [...] surgical changes.Additional findings: None. Signed: Yonathan Garcia MDReport Verified Date/Time: 04/01/2019 10:46:42 Reading Location: [facility] Radiology Reading Room Legionella [id number] 10:17:00 Test Item Value Reference Range Interpretation Comments Result (test code = No Legionella species 6463-4) isolated [facility] [id number] 10:17:00 Test Item Value Reference Range Interpretation Comments CULTURE (BEAKER) No Legionella species (test code = 1095) isolated POCT-GLUCOSE [id number] 06:39:00 Test Item Value Reference Range Interpretation Comments POC-GLUCOSE METER 100 mg/dL 70-110 : TESTED A T [facility] 6720 (BEAKER) (test code DANIEL [facility], = 1538) 43856: Nutrition And Dietetics Instructor/Techni aaron ID = [id number] for SUGU , SHEENAMOL [id number] 04:13:00 Test Item Value Reference Range Interpretation Comments PARTIAL THROMBOPLASTIN TIME 108.7 seconds 22.5-36.0 H (BEAKER) (test code = 760) BLOOD GAS, [id number] 04:03:00 Test Item Value Reference Range Interpretation [...] (BEAKER) (test code = 1819) 21.0 % [id number] 03:53:00 Test Item Value Reference Range Interpretation Comments PHOSPHORUS (BEAKER) (test code = 3.9 mg/dL 2.3-4.7 604) Nutrition And Dietetics Instructor ID - ELISSA [id number] 03:53:00 Test Item Value Reference Range Interpretation Comments MAGNESIUM (BEAKER) (test code = 2.1 mg/dL 1.6-2.6 627) Nutrition And Dietetics Instructor ID - ELISSA MBASIC METABOLIC [id number] 03:53:00 Test Item Value Reference Range Interpretation [...] S NOT APPLICABLE FOR DIALYSIS PATIEN TS. Nutrition And Dietetics Instructor ID - ELISSA MCBC W/PLT COUNT & AUTO [id number] 03:44:00 Test Item Value Reference Range Interpretation [...] PERCENT (BEAKER) (test code = 2801) POCT-GLUCOSE [id number] 00:02:00 Test Item Value Reference Range Interpretation Comments POC-GLUCOSE METER 87 mg/dL 70-110 : TESTED A T [facility] 6720 (BEAKER) (test code = [facility], 1538) 08351: Nutrition And Dietetics Instructor/Techni aaron ID = [id number] for SUGU , SHEENAMOL [id number] 22:40:00 Test Item Value Reference Range Interpretation Comments PARTIAL THROMBOPLASTIN TIME 43.8 seconds 22.5-36.0 H (BEAKER) (test code = 760) [id number] 20:55:00 Test Item Value Reference Range Interpretation Comments PARTIAL THROMBOPLASTIN TIME 115.9 seconds 22.5-36.0 H (BEAKER) (test code = 760) POCT-GLUCOSE [id number] 18:19:00 Test Item Value Reference Range Interpretation Comments POC-GLUCOSE METER 92 mg/dL 70-110 : TESTED A T [facility] 6720 (BEAKER) (test code = [facility], 1538) 21975: Nutrition And Dietetics Instructor/Techni aaron ID = [id number] for WILL VIKTORIAKENA [id number] 16:03:00Medical Cytology Report Case: [id number] Authorizing Provider: Jerald Bartlett Collected: 03/28/2019 0803 MD Devonte Ordering Location: [place] [address] ICU Received: 03/28/2019 1339 Pathologist: Lexus Robbins MD Specimen: Pleural PLEURAL FLUID (CYTOSPINS): - RARE REACTIVE MESOTHELIAL CELLS PRESENT IN A BACKGROUND OF ABUNDANT ACUTE INFLAMMATION Signing Pathologist Direct Phone Line: [phone] signed by Lexus Robbins MD on 03/31/2019 at 4:03 [id number] effusion; HFpEF, bioprosthetic valve, COPD, Afib, and chronic right pleural effusion who presented to OSH on 03/11 w/ respiratory failure and now bilateral pleural effusionsPLEURAL FLUID (LATERALITY NOT DESIGNATED)Received 20 ml dark orange fluidPrepared 4 cytospinsCollected: [id number]: [id number].[facility], Department of Pa thology, [address] [place] [address], [facility], [facility] of [facility]ology, [address] [place] [address], [facility], Department of Pathology, [address] [place] [address], Rfvrcoaa I 2019-03-31 14:43:00 Test Item Value Reference Range Interpretation Comments Troponin I (test code = 0.20 ng/mL 0-0.03 92274-1) DORI (test code = DORI) Troponin I [...] failure, acidosis, acute neurological disease, and persistent tachyarrhythmia.[facility] F Lab Interpretation (test Abnormal code = 63673-9) [facility] [id number] 14:43:00 Test Item Value Reference Range Interpretation Comments TROPONIN I (BEAKER) (test code = 0.20 ng/mL 0.00-0.03 397) Troponin I (TnI) levels [...] failure, acidosis, acute neurological disease, and persistent tachyarrhythmia.Nutrition And Dietetics Instructor ID Sultana SCOTT FCOMPREHENSIVE METABOLIC [id number] 14:39:00 Test Item Value Reference Range Interpretation [...] S NOT APPLICABLE FOR DIALYSIS PATIEN TS. Nutrition And Dietetics Instructor ANGELI SCOTT [id number] 14:33:00 Test Item Value Reference Range Interpretation Comments PHOSPHORUS (BEAKER) (test code = 3.7 mg/dL 2.3-4.7 604) Nutrition And Dietetics Instructor ID - SONIA [id number] 14:33:00 Test Item Value Reference Range Interpretation Comments MAGNESIUM (BEAKER) (test code = 2.1 mg/dL 1.6-2.6 627) Nutrition And Dietetics Instructor ID - SONIA FBASIC METABOLIC [id number] 14:33:00 Test Item Value Reference Range Interpretation [...] GFR I S NOT APPLICABLE FOR DIALYSIS DIVYA TS. [id number] 14:31:00 Test Item Value Reference Range Interpretation [...] INR is2.5-3.5 for patients wiht mechanical heart valves.[id number] 14:31:00 Test Item Value Reference Range Interpretation Comments PARTIAL THROMBOPLASTIN TIME 68.3 seconds 22.5-36.0 H (BEAKER) (test code = 760) Lactic acid, [id number] 14:30:00 Test Item Value Reference Range Interpretation Comments Lactate, Venous (test code 1.7 mmol/L 0.5-2.2 = 2872) DORI (test code = DORI) Nutrition And Dietetics Instructor ID - SONIA F Lab Interpretation (test Normal code = 67255-0) [facility] Hospital[facility]CT[facility] ACID, [id number] 14:30:00 Test Item Value Reference Range Interpretation Comments LACTATE BLOOD VENOUS (2) (BEAKER) 1.7 mmol/L 0.5-2.2 (test code = 2872) Nutrition And Dietetics Instructor ID - SONIA LAGUERRED, CHEST, 1 VIEW, NON [id number] 12:14:00Reason for exam:->CT in placeShould this be [...] Maldonado Verified Date/Time: 03/31/2019 12:14:06 Reading Location: [facility] Mammo Reading Room POCT-GLUCOSE [id number] 12:02:00 Test Item Value Reference Range Interpretation Comments POC-GLUCOSE METER 97 mg/dL 70-110 : TESTED A T [facility] 6720 (BEAKER) (test code = ILDA Enrike [place], 1538) [address]: Nutrition And Dietetics Instructor/Techni aaron ID = [id number] for WILL IAMS, ELADIA RAD, ABDOMEN/KUB, 1 VIEW [id number] 11:36:00Reason for exam:->NGT placement FINAL REPORT RAD, ABDOMEN/KUB, 1 VIEW AP INDICATION: NGT placement COMPARISON: None TECHNIQUE: Limited portable radiograph of the lower chest and upper abdomen was acquired for purposes of evaluating nasogastric tube placement FINDINGS:Nasogastric tube tip overlies the stomach Signed: Yonathan Garcia MDReport Verified Date/Time: 03/31/2019 11:36:59 Reading Location: [facility] Radiology Reading Room TROPONIN [id number] 10:05:00 Test Item Value Reference Range Interpretation [...] failure, acidosis, acute neurological disease, and persistent tachyarrhythmia.Nutrition And Dietetics Instructor ID - SONIA [id number] 07:11:00 Test Item Value Reference Range Interpretation Comments PARTIAL THROMBOPLASTIN TIME 44.8 seconds 22.5-36.0 H (BEAKER) (test code = 760) BLOOD GAS, [id number] 06:56:00 Test Item Value Reference Range Interpretation [...] code = 1819) 40.0 % BASIC METABOLIC [id number] 06:08:00 Test Item Value Reference Range Interpretation [...] S NOT APPLICABLE FOR DIALYSIS PATIEN TS. Nutrition And Dietetics Instructor ID - EMILIE LPOCT-GLUCOSE [id number] 05:52:00 Test Item Value Reference Range Interpretation Comments POC-GLUCOSE METER 89 mg/dL 70-110 : [facility] (BEAKER) (test code = ILDA Calvert [facility], 1538) 87544: Nutrition And Dietetics Instructor/Techni aaron ID = [id number] for EDISON CALDWELL [id number] 05:29:00 Test Item Value Reference Range Interpretation Comments PARTIAL THROMBOPLASTIN TIME 111.7 seconds 22.5-36.0 H (BEAKER) (test code = 760) [id number] 05:27:00 Test Item Value Reference Range Interpretation Comments PHOSPHORUS (BEAKER) (test code = 3.6 mg/dL 2.3-4.7 604) Nutrition And Dietetics Instructor ID - EMILIE [id number] 05:27:00 Test Item Value Reference Range Interpretation Comments MAGNESIUM (BEAKER) (test code = 2.1 mg/dL 1.6-2.6 627) Nutrition And Dietetics Instructor ID - EMILIE LLACTIC ACID, [id number] 04:56:00 Test Item Value Reference Range Interpretation Comments LACTATE BLOOD VENOUS (2) (BEAKER) 1.8 mmol/L 0.5-2.2 (test code = 2872) Nutrition And Dietetics Instructor ANGELI PHAN LCBC W/PLT COUNT & AUTO [id number] 04:41:00 Test Item Value Reference Range Interpretation [...] (BEAKER) (test code = 2801) BLOOD GAS, [id number] 04:30:00 Test Item Value Reference Range Interpretation [...] = 1819) 40.0 % CT, BRAIN, WITHOUT [id number] 04:20:00FINAL REPORT EXAM: CT, BRAIN, WITHOUT CONTRAST [...] characterization. Signed: Tomasa Luque VerifiedDate/Time: 03/31/2019 04:20:24 TH SYSTEM brain without IV [id number] 04:20:00Interface, External Ris In - 03/31/2019 4:22 [...] by: TOMASA LUQUE MD on 03/31/2019 04:20 [facility] [id number] 02:38:00 Test Item Value Reference Range Interpretation Comments TROPONIN I ([facility]) (test code = 0.22 ng/mL 0.00-0.03 [...] failure, acidosis, acute neurological disease, and persistent tachyarrhythmia.Nutrition And Dietetics Instructor ID - LCBECKY LB-TYPE NATRIURETIC FACTOR (BNP)2019-03-31 02:23:00 Test Item Value Reference Range Interpretation Comments B-TYPE NATRIURETIC PEPTIDE 1761 pg/mL 0-100 H ([facility]) (test code = 700) Nutrition And Dietetics Instructor ID - LCBECKY LLACTIC ACID, [id number] 02:14:00 Test Item Value Reference Range Interpretation Comments LACTATE BLOOD VENOUS (2) ([facility]) 1.8 mmol/L 0.5-2.2 (test code = 2872) Nutrition And Dietetics Instructor ID - LCBECKY LPOCT-GLUCOSE [id number] 00:30:00 Test Item Value Reference Range Interpretation Comments POC-GLUCOSE METER 94 mg/dL 70-110 : TESTED A T [facility] 6720 ([facility]) (test code = ILDA Calvert [facility], 1538) 01751: Nutrition And Dietetics Instructor/Techni aaron ID = [id number] for OLENA Yañez EDISON CT, CHEST WITH IV CONTRAST- PE TEST [id number] 00:25:00FINAL REPORT Comparison: CT chest dated 03/17/2019 [...] Amy Hanson MDReport Verified Date/Time: 03/31/2019 00:25:44 TH SYSTEM chest for pulmonary [id number] 00:25:00Interface, External Ris In - 03/31/2019 12:29 [...] anterior eighth right rib. Signed: Amy Hanson [facility] Verified Date/Time: 03/31/2019 00:25:44 [id number] 21:46:00 Test Item Value Reference Range Interpretation Comments MAGNESIUM (BEAKER) (test code = 2.1 mg/dL 1.6-2.6 627) Nutrition And Dietetics Instructor ID - KENNCOMPREHENSIVE METABOLIC [id number] 21:46:00 Test Item Value Reference Range Interpretation [...] S NOT APPLICABLE FOR DIALYSIS PATIEN TS. Nutrition And Dietetics Instructor ID - NTPOperator ID - VICENTEN [id number] 21:23:00 Test Item Value Reference Range Interpretation [...] failure, acidosis, acute neurological disease, and persistent tachyarrhythmia.Nutrition And Dietetics Instructor ID - [id number] 21:21:00 Test Item Value Reference Range Interpretation Comments PHOSPHORUS (BEAKER) (test code = 4.5 mg/dL 2.3-4.7 604) Nutrition And Dietetics Instructor ID - NTPLACTIC ACID, [id number] 21:15:00 Test Item Value Reference Range Interpretation Comments LACTATE BLOOD VENOUS (2) (BEAKER) 4.5 mmol/L 0.5-2.2 H (test code = 2872) Nutrition And Dietetics Instructor ID - NTPRAD, CHEST, 1 VIEW, NON [id number] 21:13:00Reason for exam:->cardiac arrestShould this be performed [...] Hanson Verified Date/Time: 03/30/2019 21:13:13 POC- Calcium [id number] 20:57:00 Test Item Value Reference Range Interpretation Comments POC-Calcium Ionized 1.63 mmol/L 1.12-1.27 [facility] code = 15[facility] 6720 [facility] 7703 0 Lab Interpretation (test Abnormal code = 60879-0) [facility] HospitalPOCT-[id number] 20:57:00 Test Item Value Reference Range Interpretation Comments POC-Hemoglobin (test code 9.5 g/dL 13-16.8 L TE STED AT [facility] = 1856) [address] [place] [address] [id number] AT [facility] 6720 [facility] 7703 0 Lab Interpretation (test Abnormal code = 22986-2) [facility] HospitalPOCT-[id number] 20:57:00 Test Item Value Reference Range Interpretation Comments POC-Hematocrit (test code 28 % 40-50 L TE STED AT [facility] = 1857) [address] [place] [address] 7703 0 Lab Interpretation (test Abnormal code = 36413-8) [facility] HospitalPO[facility]CALCIUM [id number] 20:57:00 Test Item Value Reference Range Interpretation Comments POC-CALCIUM IONIZED 1.63 mmol/L 1.12-1.27 TESTED A T [place] [address] ([facility]) (test code = [facility] 1536) [address] [id number] 20:57:00 Test Item Value Reference Range Interpretation Comments POC-HEMATOCRIT 28 % 40-50 L TESTED AT [place] [address] ([facility]) (test code = [facility] [address] 1857) [id number] 20:57:00 Test Item Value Reference Range Interpretation Comments POC-HEMOGLOBIN 9.5 g/dL 13.0-16.8 L TESTED AT [place] [address] ([facility]) (test code = [facility] 1856) 11459ATYBFE AT [facility] [address] [place] [address] POC-Blood gases, [id number] 20:56:00 Test Item Value Reference Range Interpretation Comments Temp. Celsius-POC (test 36.1 code = 1834) FIO2-POC (test code = 100 TESTED AT [facility] 1835) [address] [place] [address] 7703 0 pH, Arterial-POC (test 7.320 7.350-7.450 [...] 1841) Lab Interpretation (test Abnormal code = 78379-2) [facility]-[id number] 20:56:00 Test Item Value Reference Range Interpretation Comments POC-Potassium (test code 4.1 meq/L 3.6-5.5 ABUNDIO ARLENE AT [facility] = 1540) [address] [place] [address] 7703 0 Lab Interpretation (test Normal code = 52480-7) [facility]-[id number] 20:56:00 Test Item Value Reference Range Interpretation Comments POC-Sodium (test code = 147 meq/L 135-148 TEST ED AT [facility] 1542) [address] [place] [address] 7703 0 Lab Interpretation (test Normal code = 73481-8) [facility]-[id number] 20:56:00 Test Item Value Reference Range Interpretation Comments POC-Glucose (test code = 249 mg/dL 70-110 H ABUNDIO ARLENE AT [facility] 1855) [address] [place] [address] 7703 0 Lab Interpretation (test Abnormal code = 00770-8) [facility]-BLOOD GASES, [id number] 20:56:00 Test Item Value Reference Range Interpretation Comments TEMP, CELSIUS-POC 36.1 (BEAKER) (test code = 1834) FIO2-POC (BEAKER) 100 TESTED AT [facility] 6720 (test code = 1835) [place] [address] PH, ARTERIAL-POC 7.320 7.350-7.450 L (BEAKER) (test [...] H ARTERIAL-POC (BEAKER) (test code = 1841) [id number] 20:56:00 Test Item Value Reference Range Interpretation Comments POC-SODIUM (BEAKER) 147 meq/L 135-148 TESTED A T [facility] 67 (test code = 1542) DANIEL Sheikh [facility] [address] [id number] 20:56:00 Test Item Value Reference Range Interpretation Comments POC-POTASSIUM 4.1 meq/L 3.6-5.5 TESTED AT [facility] 6720 (BEAKER) (test code [facility] [address] = 1540) [id number] 20:56:00 Test Item Value Reference Range Interpretation Comments POC-GLUCOSE (BEAKER) 249 mg/dL 70-110 H TESTED AT [facility] 67 (test code = 1855) DANIEL Sheikh [facility] [address] CBC W/PLT COUNT & AUTO [id number] 20:54:00 Test Item Value Reference Range Interpretation [...] H PERCENT (BEAKER) (test code = 2801) [id number] 18:34:00 Test Item Value Reference Range Interpretation Comments PARTIAL THROMBOPLASTIN TIME 74.5 seconds 22.5-36.0 H (BEAKER) (test code = 760) POCT-GLUCOSE [id number] 18:06:00 Test Item Value Reference Range Interpretation Comments POC-GLUCOSE METER 123 mg/dL 70-110 H : TESTED A T [facility] 6720 (BEAKER) (test code = ILDA [facility], 1538) 725[address]: Nutrition And Dietetics Instructor/Techni aaron ID = [id number] for VILLAR YES, CRYSTAL BASIC METABOLIC [id number] 16:18:00 Test Item Value Reference Range Interpretation [...] S NOT APPLICABLE FOR DIALYSIS PATIEN TS. Nutrition And Dietetics Instructor ID - [id number] 12:36:00 Test Item Value Reference Range Interpretation Comments PARTIAL THROMBOPLASTIN TIME 80.4 seconds 22.5-36.0 H (BEAKER) (test code = 760) POCT-GLUCOSE [id number] 12:00:00 Test Item Value Reference Range Interpretation Comments POC-GLUCOSE METER 116 mg/dL 70-110 H : [facility] (BEAKER) (test code = ILDA Enrike [facility], 1538) [address]: Nutrition And Dietetics Instructor/Techni aaron ID = [id number] for SA NDERS, ISABELA BLOOD [id number] 11:00:00 Test Item Value Reference Range Interpretation Comments CULTURE (BEAKER) (test No growth in 5 days code = 1095) BLOOD [id number] 11:00:00 Test Item Value Reference Range Interpretation Comments CULTURE (BEAKER) (test No growth in 5 days code = 1095) RAD, CHEST, 1 VIEW, NON [id number] 10:31:00Reason for exam:->CT in placeShould this be [...] MDReport Verified Date/Time: 03/30/2019 10:31:51 Reading Location: [address] Transitional Reading Room [id number] 06:59:00 Test Item Value Reference Range Interpretation Comments PARTIAL THROMBOPLASTIN TIME 53.3 seconds 22.5-36.0 H (BEAKER) (test code = 760) POCT-GLUCOSE [id number] 06:06:00 Test Item Value Reference Range Interpretation Comments POC-GLUCOSE METER 103 mg/dL 70-110 : TESTED A T [facility] 6720 (BEAKER) (test code = IL[place], 1538) [address]: Nutrition And Dietetics Instructor/Techni aaron ID = [id number] for SILVIO BARRETT [id number] 05:16:00 Test Item Value Reference Range Interpretation Comments PHOSPHORUS (BEAKER) (test code = 3.4 mg/dL 2.3-4.7 604) Nutrition And Dietetics Instructor ID - EMILIE [id number] 05:16:00 Test Item Value Reference Range Interpretation Comments MAGNESIUM (BEAKER) (test code = 2.2 mg/dL 1.6-2.6 627) Nutrition And Dietetics Instructor ID - EMILIE LBASIC METABOLIC [id number] 05:16:00 Test Item Value Reference Range Interpretation [...] S NOT APPLICABLE FOR DIALYSIS PATIEN TS. Nutrition And Dietetics Instructor ID - PIAYA [id number] 05:13:00 Test Item Value Reference Range Interpretation Comments PARTIAL THROMBOPLASTIN TIME 118.9 seconds 22.5-36.0 H (BEAKER) (test code = 760) CBC W/PLT COUNT & AUTO [id number] 04:58:00 Test Item Value Reference Range Interpretation [...] PERCENT (BEAKER) (test code = 2801) POCT-GLUCOSE [id number] 00:28:00 Test Item Value Reference Range Interpretation Comments POC-GLUCOSE METER 108 mg/dL 70-110 : TESTED A T [facility] 6720 (BEAKER) (test code = [facility], 1538) [address]: Nutrition And Dietetics Instructor/Techni aaron ID = [id number] for SILVIO BARRETT POCT-GLUCOSE [id number] 18:26:00 Test Item Value Reference Range Interpretation Comments POC-GLUCOSE METER 90 mg/dL 70-110 : TESTED A T [facility] 6720 (BEAKER) (test code = [facility], 1538) [address]: Nutrition And Dietetics Instructor/Techni aaron ID = [id number] for ISABELA LE BASIC METABOLIC [id number] 12:56:00 Test Item Value Reference Range Interpretation [...] S NOT APPLICABLE FOR DIALYSIS PATIEN TS. Nutrition And Dietetics Instructor ID - PIAYA LPOCT-GLUCOSE [id number] 12:30:00 Test Item Value Reference Range Interpretation Comments POC-GLUCOSE METER 109 mg/dL 70-110 : TESTED A T [facility] 6720 ([employer]) (test code = [facility], 1538) [address]: Nutrition And Dietetics Instructor/Techni aaron ID = [id number] for SA VENCESRSYAMILOE RAD, CHEST, 1 VIEW, NON [id number] 09:49:00Reason for exam:->ETT, chest tubesShould this be [...] MDReport Verified Date/Time: 03/29/2019 09:49:18 Reading Location: [address] Transitional Reading Room POCT-GLUCOSE [id number] 06:12:00 Test Item Value Reference Range Interpretation Comments POC-GLUCOSE METER 115 mg/dL 70-110 H : TESTED A T [facility] 6720 ([facility]) (test code = [facility], 1538) 22449: Nutrition And Dietetics Instructor/Techni aaron ID = [id number] for VAL KULKARNI BASIC METABOLIC [id number] 04:51:00 Test Item Value Reference Range Interpretation [...] S NOT APPLICABLE FOR DIALYSIS PATIEN TS. Nutrition And Dietetics Instructor ID - PIAYA LCBC W/PLT COUNT & AUTO [id number] 04:44:00 Test Item Value Reference Range Interpretation [...] 0-1 PERCENT (BEAKER) (test code = 2801) [id number] 04:43:00 Test Item Value Reference Range Interpretation Comments PHOSPHORUS (BEAKER) (test code = 4.4 mg/dL 2.3-4.7 604) Nutrition And Dietetics Instructor ID - LCBECKY [id number] 04:43:00 Test Item Value Reference Range Interpretation Comments MAGNESIUM (BEAKER) (test code = 2.2 mg/dL 1.6-2.6 627) Nutrition And Dietetics Instructor ID - LCBECKY [id number] 04:39:00 Test Item Value Reference Range Interpretation Comments PARTIAL THROMBOPLASTIN TIME 83.9 seconds 22.5-36.0 H (BEAKER) (test code = 760) POCT-GLUCOSE [id number] 00:34:00 Test Item Value Reference Range Interpretation Comments POC-GLUCOSE METER 112 mg/dL 70-110 H : TESTED A T [facility] 6720 (BEAKER) (test code = [place], 1538) [address]: Nutrition And Dietetics Instructor/Techni aaron ID = [id number] for VAL KULKARNI VANCOMYCIN LEVEL, [id number] 23:23:00 Test Item Value Reference Range Interpretation Comments VANCOMYCIN TROUGH (BEAKER) (test 17.0 ug/mL 10.0-20.0 code = 522) Nutrition And Dietetics Instructor ID - [id number] 21:15:00 Test Item Value Reference Range Interpretation Comments PARTIAL THROMBOPLASTIN TIME 84.7 seconds 22.5-36.0 H (BEAKER) (test code = 760) POCT-GLUCOSE [id number] 17:46:00 Test Item Value Reference Range Interpretation Comments POC-GLUCOSE METER 110 mg/dL 70-110 : [facility] (BEAKER) (test code = [place], 1538) [address]: Nutrition And Dietetics Instructor/Techni aaron ID = [id number] for SLIME COLEY BASIC METABOLIC [id number] 16:41:00 Test Item Value Reference Range Interpretation [...] S NOT APPLICABLE FOR DIALYSIS PATIEN TS. Nutrition And Dietetics Instructor ID - AAFANNYIDANG, DRAINAGE TUBE CHANGE (GASTRO, NEPHRO OR BILIARY) [...] blood loss: < 5 cc. Specimen: None. substation operator helper generation: Nato Dang MD. Tow Motor Mechanic: Lauren. Fluoroscopy Time: 0.5 min.Reference Air Kerma [...] removed over the guidewire. A new 8.5 Welsh Cook multipurpose drainage catheter was advanced over [...] MDReport Verified Date/Time: 03/28/2019 14:57:26 Reading Location: [facility] B1 P048 Angio Body Reading Room IR Drainage Catheter [id number] 14:57:00Interface, External Ris In - 03/28/2019 2:59 PM CSTFINAL REPORT Fluoroscopic guided replacement of a right chest tube. History: Patient's right chest tube has been retracted and is poorly draining.. Modality: Fluoroscopy Sedation: None Anesthesia: Two percent Lidocaine without epinephrine. Approach: Existing right chest tube Estimated blood loss: < 5 cc. Specimen: None. substation operator helper generation: Nato Dang MD. Tow Motor Mechanic: [facility]. Fluoroscopy Time: 0.5 min.Reference Air Kerma (Ka, [...] removed over the guidewire. A new 8.5 Welsh Cook multipurpose drainage catheter wasadvanced over the [...] MDReport Verified Date/Time: 03/28/2019 14:57:26 Reading Location: [place] [address] [address] Body Reading [address] [facility] [id number] 14:39:00 Test Item Value Reference Range Interpretation Comments PARTIAL THROMBOPLASTIN TIME 77.6 seconds 22.5-36.0 H (BEAKER) (test code = 760) POCT-GLUCOSE [id number] 13:05:00 Test Item Value Reference Range Interpretation Comments POC-GLUCOSE METER 96 mg/dL 70-110 : TESTED A T [facility] 6720 (BEAKER) (test code = [place], 1538) [address]: Nutrition And Dietetics Instructor/Techni aaron ID = [id number] for SLIME RAMAN RAD, CHEST, 1 VIEW, NON [id number] 06:59:00Reason for exam:->ETT, chest tubesShould this be [...] MDReport Verified Date/Time: 03/28/2019 06:59:41 Reading Location: [facility] Radiology Reading Room [id number] 06:54:00 Test Item Value Reference Range Interpretation Comments PARTIAL THROMBOPLASTIN TIME 36.3 seconds 22.5-36.0 H (BEAKER) (test code = 760) [id number] 05:09:00 Test Item Value Reference Range Interpretation Comments PARTIAL THROMBOPLASTIN TIME 111.4 seconds 22.5-36.0 H (BEAKER) (test code = 760) [id number] 05:05:00 Test Item Value Reference Range Interpretation Comments PHOSPHORUS (BEAKER) (test code = 5.0 mg/dL 2.3-4.7 H 604) Nutrition And Dietetics Instructor ID - SANDRA [id number] 05:05:00 Test Item Value Reference Range Interpretation Comments MAGNESIUM (BEAKER) (test code = 2.2 mg/dL 1.6-2.6 627) Nutrition And Dietetics Instructor ID - SANDRA WBASIC METABOLIC [id number] 05:05:00 Test Item Value Reference Range Interpretation [...] S NOT APPLICABLE FOR DIALYSIS PATIEN TS. Nutrition And Dietetics Instructor ID - SANDRA WCBC W/PLT COUNT & AUTO [id number] 05:01:00 Test Item Value Reference Range Interpretation [...] (BEAKER) (test code = 2801) pH, body [id number] 03:46:00 Test Item Value Reference Range Interpretation Comments pH, Body Fluid 7.5 (test code = 2748-2) PH FLUID TYPE Body fluid Reference (test code = range:Reference 69743-9) ranges have not been established on thistype of flu id for this test. DORI (test code Performing Lab = DORI) *RYLEY [facility], [address] [place] [address] [place] [address] Pearl Kent MD, PhD [facility] [id number] 00:25:00 Test Item Value Reference Range Interpretation Comments POC-GLUCOSE METER 114 mg/dL 70-110 H : TESTED A T [facility] 6720 (BEAKER) (test code = [facility], 1538) [address]: Nutrition And Dietetics Instructor/Techni aaron ID = [id number] for EDISON BELTRAN POCT-GLUCOSE [id number] 17:52:00 Test Item Value Reference Range Interpretation Comments POC-GLUCOSE METER 111 mg/dL 70-110 H : TESTED A T [facility] 6720 (BEAKER) (test code = [facility], 1538) [address]: Nutrition And Dietetics Instructor/Techni aaron ID = [id number] for [place] LLIAMS, ELADIA BASIC METABOLIC [id number] 17:02:00 Test Item Value Reference Range Interpretation [...] S NOT APPLICABLE FOR DIALYSIS PATIEN TS. Nutrition And Dietetics Instructor ID - [id number] 12:34:00 Test Item Value Reference Range Interpretation Comments PARTIAL THROMBOPLASTIN TIME 82.8 seconds 22.5-36.0 H (BEAKER) (test code = 760) Sputum Culture + Gram [id number] 11:50:00 Test Item Value Reference Range Interpretation Comments Result (test code = See comment 6463-4) Gram Stain Result No organisms seen (test code = 1123) DORI (test code = 2+ YeastNo Normal DORI) respiratory [facility]o [facility] + [facility]AM [id number] 11:50:00 Test Item Value Reference Range Interpretation Comments CULTURE (BEAKER) (test See comment code = 1095) GRAM STAIN RESULT 4+ WBCs (BEAKER) (test code = 1123) GRAM STAIN RESULT 0-5 epithelial cells (BEAKER) (test code = 567477) GRAM STAIN RESULT No organisms seen (BEAKER) (test code = 522537) 2+ YeastNo Normal respiratory rigo presentPOCT-GLUCOSE [id number] 11:42:00 Test Item Value Reference Range Interpretation Comments POC-GLUCOSE METER 117 mg/dL 70-110 H : Pt. refu sed rpt tst: (BEAKER) (test code = TESTED AT [facility] 1056 6608) [place], [address]: Nutrition And Dietetics Instructor/Techni aaron ID = [id number] for ELADIA WHELAN BLOOD [id number] 11:00:00 Test Item Value Reference Range Interpretation Comments CULTURE (BEAKER) (test No growth in 5 days code = 1095) BLOOD [id number] 11:00:00 Test Item Value Reference Range Interpretation Comments CULTURE (BEAKER) (test No growth in 5 days code = 1095) Adenosine Deaminase, [id number] 10:22:00 Test Item Value Reference Interpretation Comments [...] of thistest have b een determined [place]. This test shouldnot be us ed for diagnosis witho ut confirmation by other medically estab lished means. DORI (test code = Performing Lab DORI) [address] [facility], [address] [place] [address] Pearl Kent MD, PhD Lab Interpretation Abnormal (test code = 83194-0) [facility]RAD[facility], 1 VIEW, NON [id number] 06:18:00 Reason for exam:->ETT, chest tubesShould this [...] surgical changes.Additional findings: None. Signed: Tomasa Luque Verified Date/Time: 03/27/2019 06:18:48 [id number] 06:00:00 Test Item Value Reference Range Interpretation Comments PARTIAL THROMBOPLASTIN TIME 82.3 seconds 22.5-36.0 H (BEAKER) (test code = 760) BASIC METABOLIC [id number] 05:35:00 Test Item Value Reference Range Interpretation [...] S NOT APPLICABLE FOR DIALYSIS PATIEN TS. Nutrition And Dietetics Instructor ID - ELISSA MSpecimen slightly [id number] 05:33:00 Test Item Value Reference Range Interpretation Comments PHOSPHORUS (BEAKER) (test code = 4.7 mg/dL 2.3-4.7 604) Nutrition And Dietetics Instructor ID - ELISSA [id number] 05:33:00 Test Item Value Reference Range Interpretation Comments MAGNESIUM (BEAKER) (test code = 2.2 mg/dL 1.6-2.6 627) Nutrition And Dietetics Instructor ID - ELISSA MCBC W/PLT COUNT & AUTO [id number] 05:19:00 Test Item Value Reference Range Interpretation [...] PERCENT (BEAKER) (test code = 2801) POCT-GLUCOSE [id number] 05:17:00 Test Item Value Reference Range Interpretation Comments POC-GLUCOSE METER 118 mg/dL 70-110 H : TESTED A T [facility] 6720 (BEAKER) (test code = ILDA Calvert [facility], 1538) [address]: Nutrition And Dietetics Instructor/Techni aaron ID = [id number] for NEDA GARLAND [id number] 20:41:00 Test Item Value Reference Range Interpretation Comments PARTIAL THROMBOPLASTIN TIME 36.4 seconds 22.5-36.0 H (BEAKER) (test code = 760) Glucose Pleural [id number] 19:27:00 Test Item Value Reference Range Interpretation Comments Glucose, 29 mg/dL SAMPLE SLIGHTLY Pleural Fluid LIPEMIC.SAMPLE (test code = MODERATELY 2346-5) HEMOLYZED. Refe rence range approxima abundio that found in s joseph. DORI (test code Performing Lab = DORI) EZ [facility] [address] [place] [address] Anne Luna MD, PhD, SOTO [facility] HospitalPOCT-GLUCOSE [id number] 18:31:00 Test Item Value Reference Range Interpretation Comments POC-GLUCOSE METER 97 mg/dL 70-110 : TESTED A T [facility] 6720 (BEAKER) (test code = ILDA Calvert [facility], 1538) [address]: Nutrition And Dietetics Instructor/Techni aaron ID = [id number] for ISABELA LE BASIC METABOLIC [id number] 18:22:00 Test Item Value Reference Range Interpretation [...] S NOT APPLICABLE FOR DIALYSIS PATIEN TS. Nutrition And Dietetics Instructor ID - BSSpecimen slightly ictericUrine [id number] 14:01:00 Test Item Value Reference Range Interpretation Comments Result (test code = 6463-4) No growth [id number] 13:23:00 Test Item Value Reference Range Interpretation Comments PARTIAL THROMBOPLASTIN TIME 40.6 seconds 22.5-36.0 H (BEAKER) (test code = 760) POCT-GLUCOSE [id number] 12:06:00 Test Item Value Reference Range Interpretation Comments POC-GLUCOSE METER 113 mg/dL 70-110 H : TESTED A T [facility] 6720 (SHAYLA) (test code = ILDA Enrike [facility], 1538) [address]: Nutrition And Dietetics Instructor/Techni aaron ID = [id number] for ISABELA STREET [id number] 10:59:00 Test Item Value Reference Range Interpretation Comments PARTIAL THROMBOPLASTIN TIME 61.4 seconds 22.5-36.0 H (BEAKER) (test code = 760) 2D Echo W/Doppler(CW/PW/Color)2019-03-26 08:34:44Ejection FractionSLEH ECHO HEARTLAB MKCKESSON CPACSInterface, External Ris In - 03/26/2019 8:35 AM C STTransthoracic Echocardiography Report (TTE) Demographics Patient Name JOHN DELUNA Date of Study 03/25/2019 Gender Male Visit Number [id number] Race Unknown Room Number 7102 Number Date of 1955 Referring Physician Jerald Christensen Age 63 year(s) Fretted Instrument Inspector Abimael Jimenez Interpreting Carlos Alberto Estrada MD [...] Palumbo's method of disk assessment is increased (& [...] l/min LVOT CI: 2.95 l/min/m^2 Tricuspid ValveCHI [facility] Phelps [facility] HospitalPOCT-GLUCOSE METER 2019-03-26 06:53:00 Test Item Value Reference Range Interpretation Comments POC-GLUCOSE METER 112 mg/dL 70-110 H : TESTED A T [facility] 6720 (BEAKER) (test code = IL[place], 1538) [address]: Nutrition And Dietetics Instructor/Techni aaron ID = [id number] for MO LC, FAUSTO RAD, CHEST, 1 VIEW, NON [id number] 05:01:00Reason for exam:->intubated w/ empyemaShould this be [...] Signed: Nakia Goldstein MDReportVerified Date/Time: 03/26/2019 05:01:34 [id number] 03:48:00 Test Item Value Reference Range Interpretation Comments PHOSPHORUS (BEAKER) (test code = 3.9 mg/dL 2.3-4.7 604) Nutrition And Dietetics Instructor ID - ELISSA [id number] 03:48:00 Test Item Value Reference Range Interpretation Comments MAGNESIUM (BEAKER) (test code = 2.1 mg/dL 1.6-2.6 627) Nutrition And Dietetics Instructor ID - ELISSA MBASIC METABOLIC [id number] 03:48:00 Test Item Value Reference Range Interpretation [...] S NOT APPLICABLE FOR DIALYSIS PATIEN TS. Nutrition And Dietetics Instructor ID - ELISSA MSpecimen slightly [id number] 03:23:00 Test Item Value Reference Range Interpretation Comments PARTIAL THROMBOPLASTIN TIME 98.7 seconds 22.5-36.0 H (BEAKER) (test code = 760) BLOOD GAS, [id number] 03:22:00 Test Item Value Reference Range Interpretation [...] 30.0 % CBC W/PLT COUNT & AUTO [id number] 03:14:00 Test Item Value Reference Range Interpretation [...] PERCENT (BEAKER) (test code = 2801) POCT-GLUCOSE [id number] 00:13:00 Test Item Value Reference Range Interpretation Comments POC-GLUCOSE METER 115 mg/dL 70-110 H : TESTED A T [facility] 6720 (BEAKER) (test code = [place], 1538) [address]: Nutrition And Dietetics Instructor/Techni aaron ID = [id number] for [place] Barbara villafuerte BASIC METABOLIC [id number] 20:31:00 Test Item Value Reference Range Interpretation [...] S NOT APPLICABLE FOR DIALYSIS PATIEN TS. Nutrition And Dietetics Instructor ID - BSSpecimen slightly ictericTriglycerides, Pleural [id number] 18:39:00 Test Item Value Reference Range Interpretation Comments TRIGLYCERIDES, 35 mg/dL See Note: Reference PLEURAL FLUID Range:CHYLOUS: (test code = >110NONCHYLOUS: 9619-8) <50SAMPLE SLIGH TLY LIPEMIC.SAMPLE MODERATELY HEMOLYZED. DORI (test code = Performing Lab DORI) EZ [facility] [address] [facility] [place] [address] Anne Luna MD, PhD, SOTO [facility] HospitalCT, CHEST, WITHOUT [id number] 18:26:00FINAL REPORT CT of the Chest, abdomen [...] Fossort Verified Date/Time: 03/25/2019 18:26:29 Reading Location: [facility] C013Y CT Body Reading Room CT, [id number] 18:26:00FINAL REPORT CT of the Chest, abdomen [...] Foss Verified Date/Time: 03/25/2019 18:26:29 Reading Location: [facility] C013Y CT Body Reading Room CT abdomen/pelvis without iv [id number] 18:26:00Interface, External Ris In - 03/25/2019 6:29 [...] MDReport Verified Date/Time: 03/25/2019 18:26:29 Reading Location: [facility] B1 C013Y CT Body Reading Room Electronically signed by: TOMASA FOSS M.D.on 03/25/2019 06:26 [facility] [id number] 18:26:00Interface, External Ris In - 03/25/2019 6:29 [...] MDReport Verified Date/Time: 03/25/2019 18:26:29 Reading Location: [facility] B1 C013Y CT Body Reading Room Electronically signed by: TOMASA FOSS M.D.on 03/25/2019 06:26 [facility]PO[facility] [id number] 18:22:00 Test Item Value Reference Range Interpretation Comments POC-GLUCOSE METER 95 mg/dL 70-110 : TESTED A T [facility] 6720 (BEAKER) (test code = ILDA Calvert [facility], 1538) [address]: Nutrition And Dietetics Instructor/Techni aaron ID = [id number] for SAND ERS, ISABELA Lactate Dehydrogenase (LD), Pleural [id number] 18:06:00 Test Item Value Reference Interpretation Comments Range Lactate >1300 See Note: U/L Reference Dehydrogenase (LD), Range:TR ANSUDATE: Pleural Fluid (test <113EXUD ATE: code = 17905-3) >113SAMPLE S LIGHTLY LIPEMIC.SAMPLE MODERATELY HEMOLYZED.This fluid sample was rece ived hemolyzed in e laboratory. Jeana n minimalhemolysi s causes signific ant increase in LD due to high levels of this enzymein red ce lls. Please interpre t result with caution.RESULTS CONFIRMED BY RE PEAT ANALYSIS. DORI (test code = Performing Lab DORI) EZ [facility] [address] [facility] [address] Anne Luna MD, PhD, SOTO [facility] HospitalRAD, CHEST, 1 VIEW, NON [id number] 16:20:00 Reason for exam:->Central Line PlacementShould this [...] MDReport Verified Date/Time: 03/25/2019 16:20:19 Reading Location: [facility] B1 C013W Consult Reading Room [id number] 15:56:00 Test Item Value Reference Range Interpretation Comments PARTIAL THROMBOPLASTIN TIME 83.0 seconds 22.5-36.0 H (BEAKER) (test code = 760) BRONCHIAL CULTURE + GRAM [id number] 12:23:00 Test Item Value Reference Range Interpretation Comments CULTURE (BEAKER) See comment (test code = 1095) GRAM STAIN RESULT 4+ WBCs (BEAKER) (test code = 1123) GRAM STAIN RESULT <1+ yeast with (BEAKER) (test code pseudohyphae = 530510) 2+ Yeast with feetNo Normal respiratory rigo [...] S NOT APPLICABLE FOR DIALYSIS PATIEN TS. Nutrition And Dietetics Instructor ID - LENNY DONOVAN GAS, [id number] 12:00:00 Test Item Value Reference Range Interpretation [...] (test code = 1819) 30.0 % POCT-GLUCOSE [id number] 11:51:00 Test Item Value Reference Range Interpretation Comments POC-GLUCOSE METER 114 mg/dL 70-110 H : [facility] (BEAKER) (test code = [place], 1538) [address]: Nutrition And Dietetics Instructor/Techni aaron ID = [id number] for SA MONTILLA, ISABELA BODY FLUID CULTURE + GRAM [id number] 10:54:00 Test Item Value Reference Range Interpretation Comments CULTURE (BEAKER) (test code No growth = 1095) GRAM STAIN RESULT (BEAKER) 2+ WBCs (test code = 1123) GRAM STAIN RESULT (BEAKER) No organisms seen (test code = 09259) BODY FLUID CULTURE + GRAM [id number] 10:54:00 Test Item Value Reference Range Interpretation Comments CULTURE (BEAKER) (test code No growth = 1095) GRAM STAIN RESULT (BEAKER) 1+ WBCs (test code = 1123) GRAM STAIN RESULT (BEAKER) No organisms seen (test code = 94386) Urinalysis w/Microscopic + Reflex to [id number] 10:03:00 Test Item Value Reference Range Interpretation Comments Color, UA (test code = Yellow 5778-6) Clarity, UA (test code = Hazy 5767-9) Specific [place], UA (test 1.018 1.001-1.035 code = 5811-5) pH, UA (test code = 5.5 5.0-8.0 5803-2) Protein, UA (test code = 50 mg/dL Negative A 36675-3) Glucose, UA (test code = Negative Negative 365) Ketones, UA (test code = Negative Negative 2514-8) Bilirubin, UA (test code = Negative Negative 18897-0) Blood, UA (test code = Small Negative A 78764-5) Nitrite, UA (test code = Negative Negative 5802-4) Leukocytes, UA (test code Large Negative A = 5799-2) Urobilinogen, UA (test 6.0 mg/dL 0.2-1 H code = 05348-1) RBC, UA (test code = <1 /HPF 79547-6) WBC, UA (test code = 54 /HPF 5821-4) Bacteria, UA (test code = Few 49366-7) Mucus (test code = 8247-9) Few Squam Epithel, UA (test <1 /HPF code = 31546-9) Hyaline Casts, UA (test 1 /LPF code = 91699-6) Specimen Source (test code = 2795) DORI (test code = DORI) Nutrition And Dietetics Instructor ID - [auto]Nutrition And Dietetics Instructor ID - ramya Lab Interpretation (test Abnormal code = 59130-2) [facility] HospitalURINALYSIS W/ REFLEX URINE [id number] 10:03:00 Test Item Value Reference Range Interpretation [...] /LPF 514) SOURCE(BEAKER) (test code = 2795) Nutrition And Dietetics Instructor ID - [auto]Nutrition And Dietetics Instructor ID - [id number] 09:58:00 Test Item Value Reference Range Interpretation Comments PARTIAL THROMBOPLASTIN TIME 83.1 seconds 22.5-36.0 H (BEAKER) (test code = 760) BLOOD [id number] 07:00:00 Test Item Value Reference Range Interpretation Comments CULTURE (BEAKER) (test No growth in 5 days code = 1095) RAD, CHEST, 1 VIEW, NON [id number] 06:48:00Reason for exam:->intubated w/ empyemaShould this be [...] Tomasa Luqueeport Verified Date/Time: 03/25/2019 06:48:46 POCT-GLUCOSE [id number] 06:17:00 Test Item Value Reference Range Interpretation Comments POC-GLUCOSE METER 101 mg/dL 70-110 : TESTED A T [facility] 6720 (BEAKER) (test code [facility], = 1538) [address]: Nutrition And Dietetics Instructor/Techni aaron ID = [id number] for JACKSON BOLDEN CBC W/PLT COUNT & AUTO [id number] 04:23:00 Test Item Value Reference Range Interpretation [...] PERCENT (BEAKER) (test code = 2801) BLOOD [id number] 04:02:00 Test Item Value Reference Range Interpretation Comments CULTURE (BEAKER) (test No growth in 5 days code = 1095) BASIC METABOLIC [id number] 03:59:00 Test Item Value Reference Range Interpretation [...] S NOT APPLICABLE FOR DIALYSIS PATIEN TS. Nutrition And Dietetics Instructor ID - ELISSA MSpecimen slightly [id number] 03:57:00 Test Item Value Reference Range Interpretation Comments PHOSPHORUS (BEAKER) (test code = 2.8 mg/dL 2.3-4.7 604) Nutrition And Dietetics Instructor ID - ELISSA [id number] 03:57:00 Test Item Value Reference Range Interpretation Comments MAGNESIUM (BEAKER) (test code = 2.0 mg/dL 1.6-2.6 627) Nutrition And Dietetics Instructor ID - ELISSA [id number] 03:30:00 Test Item Value Reference Range Interpretation Comments PARTIAL THROMBOPLASTIN TIME 63.6 seconds 22.5-36.0 H (BEAKER) (test code = 760) POCT-GLUCOSE [id number] 00:15:00 Test Item Value Reference Range Interpretation Comments POC-GLUCOSE METER 110 mg/dL 70-110 : TESTED A T [facility] 6720 (BEAKER) [facility] = 1538[facility] [address]: Nutrition And Dietetics Instructor/Techni aaron ID = [id number] for SUGU , SHEENAMOL [id number] 21:11:00 Test Item Value Reference Range Interpretation Comments PARTIAL THROMBOPLASTIN TIME 68.8 seconds 22.5-36.0 H (BEAKER) (test code = 760) BASIC METABOLIC [id number] 21:09:00 Test Item Value Reference Range Interpretation [...] S NOT APPLICABLE FOR DIALYSIS PATIEN TS. Nutrition And Dietetics Instructor ID - JOSE Castellano slightly ictericRAD, ABDOMEN/KUB, 1 VIEW AP 2019-03-24 19:29:00Reason for exam:->NGT fell outAddendum BeginsREPORT STATUS:A Two views were obtained. Signed: Edwin Salazar MDReport Verified Date/Time: 03/24/2019 19:29:02 Reading Location: [address] Consult Reading RoomAddendum EndsFINAL REPORT Abdomen. [...] MDReport Verified Date/Time: 03/24/2019 19:24:17 Reading Location: [address] Consult Reading Room POCT- GLUCOSE [id number] 18:19:00 Test Item Value Reference Range Interpretation Comments POC-GLUCOSE METER 97 mg/dL 70-110 : TESTED A T [facility] 6720 (BEAKER) (test code = ILDA Calvert [facility], 1538) [address]: Nutrition And Dietetics Instructor/Techni aaron ID = [id number] for SAND ERS, ISABELA RAD, CHEST, 1 VIEW, NON [id number] 18:11:00Reason for exam:->Chest tube placement, possible dislodgementShould [...] MDReport Verified Date/Time: 03/24/2019 18:11:57 Reading Location: [address] Consult Reading Room BODY FLUID CULTURE + GRAM [id number] 16:09:00 Test Item Value Reference Range Interpretation Comments CULTURE (BEAKER) (test No growth code = 1095) GRAM STAIN RESULT 1+ White blood cells (BEAKER) (test code = seen 1123) GRAM STAIN RESULT No organisms seen (BEAKER) (test code = 41510) BRONCHIAL CULTURE + GRAM [id number] 14:05:00 Test Item Value Reference Range Interpretation Comments CULTURE (BEAKER) (test code No growth = 1095) GRAM STAIN RESULT (BEAKER) <1+ WBCs (test code = 1123) GRAM STAIN RESULT (BEAKER) No organisms seen (test code = 91994) BASIC METABOLIC [id number] 13:09:00 Test Item Value Reference Range Interpretation [...] S NOT APPLICABLE FOR DIALYSIS PATIEN TS. Nutrition And Dietetics Instructor ID - SONIA [id number] 13:04:00 Test Item Value Reference Range Interpretation Comments PARTIAL THROMBOPLASTIN TIME 58.9 seconds 22.5-36.0 H (BEAKER) (test code = 760) EEG EXTENDED MONITORING, 40-60 [id number] 12:32:00For STAT EEG- after 5 PM weekdays, weekends and holidays, page the on-call EEG TechReason for exam:-& gt;Concern for Subclinical StatusShould this be performed at the bedside?->YesDate(s) of EE03/24/2019 DATE OF REPORT: 03/24/2019ACC: [id number] Number: [id number] Location: Inpatient ICUStart time: 03/24/2019 10:42Stop time: 03/24/2019 11:23ICD-10: R56.9 CPT Code: 00424 HISTORY: 63 y.o. male with hypertension, diastolic heart failure, chronic kidney disease who was transferred to [facility] for effusions and remains altered with concern for subclinical status epilepticus. MEDICATIONS THAT COULD AFFECT EEG: Dexmedetomidine TECHNICAL SUMMARY: This is a digital video-EEG recorded with 32 input channels reviewed with bipolar and referential montages using the modifie d cookdinner system nomenclature. DESCRIPTION OF RECORD: During the [...] inflammation, aftermath of earlier seizure activity, other IMPREGNATOR [employer] DRIER insult, or toxic-metabolic derangements. An EEG without epileptiform discharges does not exclude the possibility of epilepsy. If the clinical suspicion of epilepsy remains, consider additional EEG recordings. Nando Metz MDNeurophysiology Fellow Taya Martinez M.D., FACNS, FAAN, FAESProfessor of Neurology, [facility] College of [facility] Medical CenterDirector, [facility]ilepsy CenterJohn Saab [facility] at [place], [place] EXTENDED MONITORING 40 - 60 [id number] 12:32:00Interface, External Ris In - 03/24/2019 12:32 PM CSTDate(s) of EE03/24/2019 DATE OF REPORT: 03/24/2019ACC: [id number] Number: [id number] Location: Inpatient ICUStart time: 03/24/2019 10:42Stoptime: 03/24/2019 11:23ICD-10: R56.9 CPT Code: 35491 HISTORY: 63 y.o. male with hypertension, diastolic heart failure, chronic kidney disease who was transferred to [facility] for effusions and remains altered [...] inflammation, aftermath of earlier seizure activity, other IMP[employer]NATOR [employer] DRIER insult, or toxic-metabolic derangements. An EEG without epileptiform discharges does not exclude the possibility of epilepsy. If the clinical suspicion of epilepsy remains, consider additional EEG recordings. Nando Metz MDNeurophysiology Fellow Taya Martinez M.D., FACDEB, FAAN, FAESProfessor of Neurology, [facility] Memorial HospitalDirector, [facility]ilepsy CenterJohn Saab Neurophysiology Lab at [place], [place] [facility]ont HospitalPOCT-GLUCOSE [id number] 12:29:00 Test Item Value Reference Range Interpretation Comments POC-GLUCOSE METER 109 mg/dL 70-110 : TESTED A T [facility] 6720 (BEAKER) (test code = [facility], 153) 13028: Nutrition And Dietetics Instructor/Techni aaron ID = [id number] for SA NDERS, ISABELA BLOOD GAS, [id number] 12:11:00 Test Item Value Reference Range Interpretation [...] (test code = 1819) 30.0 % POCT-GLUCOSE [id number] 06:09:00 Test Item Value Reference Range Interpretation Comments POC-GLUCOSE METER 122 mg/dL 70-110 H : TESTED A T [facility] 6720 (BEAKER) (test code = [facility] [employer] [facility], 153) 90250: Nutrition And Dietetics Instructor/Techni aaron ID = [id number] for DA RINA EDISON BLOOD GAS, [id number] 05:35:00 Test Item Value Reference Range Interpretation [...] (BEAKER) (test code = 1819) 30.0 % [id number] 05:09:00 Test Item Value Reference Range Interpretation Comments PHOSPHORUS (BEAKER) (test code = 3.2 mg/dL 2.3-4.7 604) Nutrition And Dietetics Instructor ID - SANDRA [id number] 05:09:00 Test Item Value Reference Range Interpretation Comments MAGNESIUM (BEAKER) (test code = 1.9 mg/dL 1.6-2.6 627) Nutrition And Dietetics Instructor ID - SANDRA WBASIC METABOLIC [id number] 05:09:00 Test Item Value Reference Range Interpretation [...] S NOT APPLICABLE FOR DIALYSIS PATIEN TS. Nutrition And Dietetics Instructor ID - SANDRA WSpecimen slightly [id number] 04:59:00 Test Item Value Reference Range Interpretation Comments PARTIAL THROMBOPLASTIN TIME 61.1 seconds 22.5-36.0 H (BEAKER) (test code = 760) CBC W/PLT COUNT & AUTO [id number] 04:52:00 Test Item Value Reference Range Interpretation [...] = 2801) RAD, CHEST, 1 VIEW, NON [id number] 03:57:00Reason for exam:->intubated w/ empyemaShould this be [...] MDReport Verified Date/Time: 03/24/2019 03:57:49 VANCOMYCIN LEVEL, [id number] 01:53:00 Test Item Value Reference Range Interpretation Comments VANCOMYCIN TROUGH (BEAKER) (test 17.9 ug/mL 10.0-20.0 code = 522) Nutrition And Dietetics Instructor ID - SANDRA WCT, BRAIN, WITHOUT [id number] 01:31:00FINAL REPORT EXAM: CT head without contrast. [...] Goldstein MDReport Verified Date/Time: 03/24/2019 01:31:09 POCT-GLUCOSE [id number] 00:17:00 Test Item Value Reference Range Interpretation Comments POC-GLUCOSE METER 122 mg/dL 70-110 H : TESTED A T [facility] (test code = [facility], 1538) 03371: Nutrition And Dietetics Instructor/Techni aaron ID = [id number] for EDISON BELTRAN BASIC METABOLIC [id number] 21:04:00 Test Item Value Reference Range Interpretation [...] S NOT APPLICABLE FOR DIALYSIS PATIEN TS. Nutrition And Dietetics Instructor ID - Nicholas nolanericBASIC METABOLIC [id number] 16:30:00 Test Item Value Reference Range Interpretation [...] S NOT APPLICABLE FOR DIALYSIS PATIEN TS. Nutrition And Dietetics Instructor ID - ALMA WHEPATIC FUNCTION [id number] 16:22:00 Test Item Value Reference Range Interpretation [...] (test code = 7 U/L 6-55 347) Nutrition And Dietetics Instructor ID - ALMA [id number] 16:05:00 Test Item Value Reference Range Interpretation Comments AMMONIA (BEAKER) (test code = 348) 29 mol/L 18-72 Nutrition And Dietetics Instructor ID - ALMA WARNERA [id number] 11:27:00 Test Item Value Reference Range Interpretation Comments CULTURE (BEAKER) (test code No MRSA isolated = 1095) Manual [id number] 10:18:00 Test Item Value Reference Range Interpretation [...] Ovalocytes (test code = 1+ few 477) [place] Cells (test code = 1+ few 474) Artifact (test code = Present 3432) Platelet Conc (test code Adequate = 3438) DORI (test code = DORI) Nutrition And Dietetics Instructor ID - Mariela OverholtUser comments: Slide comments: Lab Interpretation (test Abnormal code = 53443-9) [facility] W/PLT COUNT & AUTO [id number] 10:18:00 Test Item Value Reference Range Interpretation [...] CONCENTRATION Adequate (CELLAVISION)(BEAKER) (test code = 3438) Nutrition And Dietetics Instructor ID Sultana Sierra OverholtUser comments: Slide comments:SPIN/CONCENTRATION [id number] 10:03:00 Test Item Value Reference Range Interpretation Comments CONCENTRATION CHARGED (BEAKER) (test Done code = 2657) SPIN/CONCENTRATION [id number] 10:03:00 Test Item Value Reference Range Interpretation Comments CONCENTRATION CHARGED (BEAKER) (test Done code = 2657) SPIN/CONCENTRATION [id number] 10:03:00 Test Item Value Reference Range Interpretation Comments CONCENTRATION CHARGED (BEAKER) (test Done code = 2657) [id number] 07:00:00 Test Item Value Reference Range Interpretation Comments PARTIAL THROMBOPLASTIN TIME 70.1 seconds 22.5-36.0 H (BEAKER) (test code = 760) [id number] 06:46:00 Test Item Value Reference Range Interpretation Comments PHOSPHORUS (BEAKER) (test code = 2.8 mg/dL 2.3-4.7 604) Nutrition And Dietetics Instructor ID Sultana FLORES [id number] 06:46:00 Test Item Value Reference Range Interpretation Comments MAGNESIUM (BEAKER) (test code = 1.9 mg/dL 1.6-2.6 627) Nutrition And Dietetics Instructor ID Sultana FLORES WBASIC METABOLIC [id number] 06:46:00 Test Item Value Reference Range Interpretation [...] S NOT APPLICABLE FOR DIALYSIS PATIEN TS. Nutrition And Dietetics Instructor ID - SANDRA SEWELLpecimecely slightly ictericBLOOD GAS, [id number] 06:18:00 Test Item Value Reference Range Interpretation [...] (test code = 1819) 30.0 % POCT-GLUCOSE [id number] 05:36:00 Test Item Value Reference Range Interpretation Comments POC-GLUCOSE METER 122 mg/dL 70-110 H : TESTED A T [facility] 6720 (BEAKER) (test code = [facility], 1538) 53369: Nutrition And Dietetics Instructor/Techni aaron ID = [id number] for PRASHANTH SATISH FLYNNN [id number] 00:47:00 Test Item Value Reference Range Interpretation Comments PARTIAL THROMBOPLASTIN TIME 62.9 seconds 22.5-36.0 H (BEAKER) (test code = 760) POCT-GLUCOSE [id number] 00:39:00 Test Item Value Reference Range Interpretation Comments POC-GLUCOSE METER 131 mg/dL 70-110 H : TESTED A T [facility] 6720 (BEAKER) (test code = [facility], 1538) 25281: Nutrition And Dietetics Instructor/Techni aaron ID = [id number] for DA RINA EDISON BASIC METABOLIC [id number] 20:51:00 Test Item Value Reference Range Interpretation [...] S NOT APPLICABLE FOR DIALYSIS PATIEN TS. Nutrition And Dietetics Instructor ID - ELISSA MSpecimen slightly ictericPT/[id number] 17:40:00 Test Item Value Reference Range Interpretation [...] mechanical heart valves.BODY FLUID CELL COUNT WITH [id number] 17:31:00 Test Item Value Reference Range Interpretation Comments APPEARANCE FLUID (BEAKER) (test Bloody Clear A code = 510) COLOR FLUID (BEAKER) (test code Red Colorless, Straw A = 511) RBC FLUID (BEAKER) (test code = 20739 /cu mm <=1 H 513) ADJUSTED WBC [...] = 2873) Body fluid cell count with [id number] 17:22:00 Test Item Value Reference Range Interpretation Comments Appearance (test code = 9335-1) Bloody Clear A Color (test code = 6824-7) Red Colorless, Straw A RBCs (test code = 47186-4) 26252 <=1 /cu mm H Adjusted WBC Count (test code = 31785 <=5 /cu mm H 70405-6) Lining Cells (test code = 21387-3) 364 <=1 /cu mm H % Segs (test code = 21884-4) 85 % % Lymphs (test code = 29548-2) 4 % % Monos (test code = 21471-7) 10 % % Eos (test code = 36020-0) 1 % % Baso (test code = 09409-1) 0 % Container Body Fluid (test code = EDTA Tube 2873) Lab Interpretation (test code = Abnormal 04830-6) [facility] HospitalBODY FLUID CELL COUNT WITH [id number] 17:22:00 Test Item Value Reference Range Interpretation Comments APPEARANCE FLUID (BEAKER) (test Bloody Clear A code = 510) COLOR FLUID (BEAKER) (test code Red Colorless, Straw A = 511) RBC FLUID (BEAKER) (test code = 92922 /cu mm <=1 H 513) ADJUSTED WBC FLUID (BEAKER) 65425 /cu mm <=5 H (test code = [...] code = 2873) SPUTUM CULTURE + GRAM [id number] 13:08:00 Test Item Value Reference Range Interpretation Comments CULTURE (BEAKER) (test See comment code = 1095) GRAM STAIN RESULT 2+ WBCs (BEAKER) (test code = 1123) GRAM STAIN RESULT 0-5 epithelial cells (BEAKER) (test code = 058665) GRAM STAIN RESULT No organisms seen (BEAKER) (test code = 347778) <1+ YeastNo Normal respiratory rigo presentBASIC METABOLIC [id number] 10:04:00 Test Item Value Reference Range Interpretation [...] S NOT APPLICABLE FOR DIALYSIS PATIEN TS. Nutrition And Dietetics Instructor ID - ELISSA MSpecimen slightly [id number] 10:02:00 Test Item Value Reference Range Interpretation Comments PARTIAL THROMBOPLASTIN TIME 35.5 seconds 22.5-36.0 (BEAKER) (test code = 760) 6 hours after starting heparin infusion and as indicated per sliding scaleRAD, CHEST, 1 VIEW, NON [id number] 09:09:00Reason for exam:->intubated, bilateral chest tubesShould this [...] MDReport Verified Date/Time: 03/22/2019 09:09:11 Reading Location: [address] Ortho Consult Reading Room POCT-GLUCOSE [id number] 06:06:00 Test Item Value Reference Range Interpretation Comments POC-GLUCOSE METER 105 mg/dL 70-110 : TESTED A T [facility] 6720 (BEAKER) (test code = [facility] [place], 1538) 33775: Nutrition And Dietetics Instructor/Techni aaron ID = [id number] for SATISH BELTRANN VANCOMYCIN LEVEL, [id number] 02:59:00 Test Item Value Reference Range Interpretation Comments VANCOMYCIN TROUGH (BEAKER) (test 15.2 ug/mL 10.0-20.0 code = 522) Nutrition And Dietetics Instructor ID - JOSE [id number] 02:42:00 Test Item Value Reference Range Interpretation Comments PHOSPHORUS (BEAKER) (test code = 3.8 mg/dL 2.3-4.7 604) Nutrition And Dietetics Instructor ID - JOSE [id number] 02:42:00 Test Item Value Reference Range Interpretation Comments MAGNESIUM (BEAKER) (test code = 2.0 mg/dL 1.6-2.6 627) Nutrition And Dietetics Instructor ID - JOSE EBASIC METABOLIC [id number] 02:42:00 Test Item Value Reference Range Interpretation [...] S NOT APPLICABLE FOR DIALYSIS PATIEN TS. Nutrition And Dietetics Instructor ID - JOSE ESpecimen slightly ictericCBC W/PLT COUNT & AUTO [id number] 02:27:00 Test Item Value Reference Range Interpretation [...] PERCENT (BEAKER) (test code = 2801) POCT-GLUCOSE [id number] 00:42:00 Test Item Value Reference Range Interpretation Comments POC-GLUCOSE METER 95 mg/dL 70-110 : TESTED A T [facility] 6720 (BEAKER) (test code = [facility], 1538) 46440: Nutrition And Dietetics Instructor/Techni aaron ID = [id number] for OLENA Kunal EDISON BASIC METABOLIC [id number] 22:23:00 Test Item Value Reference Range Interpretation [...] S NOT APPLICABLE FOR DIALYSIS PATIEN TS. Nutrition And Dietetics Instructor ID - BSSpecimen slightly ictericBODY FLUID CELL COUNT WITH DIFFERENTIAL 2019-03-21 20:29:00 Test Item Value Reference Range Interpretation Comments APPEARANCE FLUID (BEAKER) (test Hazy Clear A code = 510) COLOR FLUID (BEAKER) (test code Kierra Colorless, Straw A = 511) RBC FLUID (BEAKER) (test code = 45892 /cu mm <=1 H 513) ADJUSTED WBC [...] = 2873) U/S, DRAINAGE, CHEST, WITH TUBE [id number] 19:48:00Please place a 3-way stopcock on the [...] loss: < 5 cc. Specimen: Left bedside. substation operator helper generation: Nato Dang MD. Tow Motor Mechanic: None. Technique: Informed written consent was obtained. [...] space. Under direct ultrasound guidance an 8 Welsh skater pigtail drain was advanced into the [...] the patient's left chest and an 8 Welsh skater pigtail drain was placed in a similar fashion and connected to the atrium pleura. The patient tolerated the procedure well without evidence of immediate competition. Impression: Te chnically successful and uncomplicated placement of bilateral pigtail chest tubes under ultrasound guidance. Signed: Nato Dang MDReport Verified Date/Time: 03/21/2019 19:48:47 Reading Location: [place] [address] Angio Body Reading Room US drainage chest with tube [id number] 19:48:00 Interface, External Ris In - 03/21/2019 7:50 PM CSTFINAL REPORT Ultrasound guided insertion of bilateral pigtail chest tube catheters. History: Bilateral loculated pleural effusions. Modality: Ultrasound Sedation: None Anesthesia: Two percent Lidocaine without epinephrine. Approach: Bilateral mid axillary line Estimated blood loss: < 5 cc. Specimen: Left bedside. substation operator helper generation: Nato Dang MD. Tow Motor Mechanic: None. Technique: Informed written consent was obtained. [...] space. Under direct ultrasound guidance an 8 Welsh skater pigtail drain was advanced into the [...] the patient's left chest and an 8 Welsh skater pigtail drain was placed in a similar fashion and connected to the atrium pleura. The patient tolerated the procedure well without evidence of immediate competition. Impression: Technically successful and uncomplicated placementof bilateral pigtail chest tubes under ultrasound guidance. Signed: Rissa Dang MDReport Verified Date/Time: 03/21/2019 19:48:47 Reading Location: [facility] [address] [place] [address] [facility] 2019-03-21 12:39:00 Test Item Value Reference Range Interpretation Comments Human Metapneumovirus Not detected Not detected, (test code = 24130-6) Equivocal Rhinovirus (test code = Not detected Not detected, 94291-7) Equivocal INFLUENZA A (NO Not detected Not detected, SUBTYPE) (test code = Equivocal 38602-7) Influenza A subtype H1 (test code = 22716-1) Influenza A Subtype H3 (test code = 19840-0) Influenza A Subtype H1-2009 (test code = 47738-6) Influenza B (test code Not detected Not detected, = 57898-0) Equivocal Respiratory Syncytial Not detected Not detected, Virus (test code = Equivocal 33467-7) Parainfluenza Virus 1 Not detected Not detected, (test code = 48588-4) Equivocal Parainfluenza Virus 2 Not detected Not detected, (test code = 46502-1) Equivocal Parainfluenza virus 3 Not detected Not detected, (test code = 64589-0) Equivocal Parainfluenza Virus 4 Not detected Not detected, (test code = 96186-4) Equivocal Adenovirus (test code = Not detected Not detected, 18177-4) Equivocal Coronavirus 229E (test Not detected Not detected, code = 84402-8) Equivocal Coronavirus HKU1 (test Not detected Not detected, code = 19297-2) Equivocal Coronavirus NL63 (test Not detected Not detected, code = 42072-5) Equivocal Coronavirus OC43 (test Not detected Not detected, code = 95344-1) Equivocal Bordetella Pertussis Not detected Not detected, (test code = 12498-6) Equivocal Chlamydophila Not detected Not detected, Pneumoniae (test code = Equivocal 19708-6) Mycoplasma Pneumoniae Not detected Not detected, (test code = 20310-6) Equivocal DORI (test code = DORI) Other viruses and bacteria not targeted by this PCR panel cannot be excluded; therefore clinical correlation and follow up of serology, culture results, and other molecular studies is required. The results are not intended to be used as the sole means for clinical diagnosis or patient management decisions. This sample was tested at the [facility] Molecular Diagnostics Laboratory using the [employer] TechnologiesArray Respiratory Panel. It is FDA cleared and has been verified and approved by the [facility] Molecular Diagnostics Laboratory for clinical use on nasopharyngeal swab specimens. The performance of the FilmArray RP has not been established in individuals who received influenza vaccine. Recent administration of a nasal influenza vaccine may cause false positive results for Influenza A and/orInfluenza B. [facility]RES[facility] [id number] 12:39:00 Test Item Value Reference Range Interpretation [...] decisions. This sample was tested at the [facility] Molecular Diagnostics Laboratory using the [employer]Array Respiratory Panel. It is FDA cleared and has been verified and approved by the [facility] Molecular Diagnostics Laboratory for clinical use on nasopharyngeal swab specimens.The performance of the FilmArrayRP has not been established in individuals who received influenza vaccine. Recent administration ofa nasal influenza vaccine may cause false positive results for Influenza A and/orInfluenza B.Vitamin B12 and [id number] 10:20:00 Test Item Value Reference Range Interpretation Comments Vitamin B12 (test code = >2000 213-816 H 2132-9) Folate (test code = 17.3 ng/mL >=7.0 2284-8) DORI (test code = DORI) Nutrition And Dietetics Instructor ID Sultana Loomis Lab Interpretation (test Abnormal code = 03970-6) [facility] HospitalVITAMIN B12 AND [id number] 10:20:00 Test Item Value Reference Range Interpretation Comments VITAMIN B12 (BEAKER) (test code = > pg/mL 213-816 H 774) FOLATE (BEAKER) (test code = 362) 17.3 ng/mL >=7.0 Nutrition And Dietetics Instructor ID - ELISSA [id number] 10:16:00 Test Item Value Reference Range Interpretation Comments Ferritin (test code = 1076 ng/mL 5-275 H 2276-4) DORI (test code = DORI) Nutrition And Dietetics Instructor ID Sultana Loomis Lab Interpretation (test Abnormal code = 08392-2) [facility] HospitalFERRITIN2020-01-24 10:16:00 Test Item Value Reference Range Interpretation Comments FERRITIN (BEAKER) (test code = 1076 ng/mL 5-275 H 361) Nutrition And Dietetics Instructor ID - ELISSA MLactate dehydrogenase (LDH)2019-03-21 09:41:00 Test Item Value Reference Range Interpretation Comments LDH (test code = 2532-0) 300 U/L 125-220 H DORI (test code = DORI) Nutrition And Dietetics Instructor ANGELI Loomis Lab Interpretation (test Abnormal code = 23796-7) [facility] HospitalMAGNESIUM2020-01-24 09:41:00 Test Item Value Reference Range Interpretation Comments MAGNESIUM (BEAKER) (test code = 2.0 mg/dL 1.6-2.6 627) Nutrition And Dietetics Instructor ID - ELISSA MBASIC METABOLIC [id number] 09:41:00 Test Item Value Reference Range Interpretation [...] S NOT APPLICABLE FOR DIALYSIS PATIEN TS. Nutrition And Dietetics Instructor ID - ELISSA MSpecimen slightly ictericLACTATE DEHYDROGENASE (LDH) 2019-03-21 09:41:00 Test Item Value Reference Range Interpretation Comments LACTATE DEHYDROGENASE (BEAKER) (test 300 U/L 125-220 H code = 635) Nutrition And Dietetics Instructor ANGELI Newby, TIBC, % sat. (without ferritin)2019-03-21 09:39:00 Test Item Value Reference Range Interpretation Comments Iron (test code = 2498-4) 39.0 ug/dL 40-160 L TIBC (test code = 2500-7) 113 ug/dL 250-450 L Iron % Saturation (test 35 % 20-55 code = 2502-3) DORI (test code = DORI) Nutrition And Dietetics Instructor ID Sultana ELISSA Vladislav Lab Interpretation (test Abnormal code = 85508-3) [facility] HospitalIRON, TIBC, % SAT. (WITHOUT FERRITIN)2019-03-21 09:39:00 Test Item Value Reference Range Interpretation Comments IRON (BEAKER) (test code = 547) 39.0 ug/dL 40.0-160.0 L TOTAL IRON BINDING CAPACITY 113 ug/dL 250-450 L (BEAKER) (test code = 769) IRON % SATURATION (2) (BEAKER) 35 % 20-55 (test code = 2590) Nutrition And Dietetics Instructor ID - ELISSA Thuan Influenza A&B [id number] 09:34:00 Test Item Value Reference Range Interpretation Comments Rapid Influenza A Antigen Negative Negative, Inconclusive (test code = 78293-2) Rapid influenza B Antigen Negative Negative, Inconclusive (test code = 54420-2) Lab Interpretation (test code Normal = 10262-1) [facility] HospitalRACarlo INFLUENZA A&B [id number] 09:34:00 Test Item Value Reference Range Interpretation Comments RAPID INFLUENZA A AG (BEAKER) Negative Negative, Inconclusive (test code = 1622) RAPID INFLUENZA B AG (BEAKER) Negative Negative, Inconclusive (test code = 1623) Reticulocyte [id number] 09:20:00 Test Item Value Reference Range Interpretation Comments % Retic (test code = 1.9 % 0.5-1.8 H 19825-6) DORI (test code = DORI) Nutrition And Dietetics Instructor ID - [id number] Lab Interpretation (test Abnormal code = 08096-7) [facility] HospitalRETICULOCYTE [id number] 09:20:00 Test Item Value Reference Range Interpretation Comments RETICULOCYTE COUNT PCT (BEAKER) (test 1.9 % 0.5-1.8 H code = 575) Nutrition And Dietetics Instructor ID - [id number] W/PLT COUNT & AUTO [id number] 08:50:00 Test Item Value Reference Range Interpretation [...] CONCENTRATION Adequate (CELLAVISION)(BEAKER) (test code = 3438) Nutrition And Dietetics Instructor ID - Mariela OverholtUser comments: Slide comments:POCT-GLUCOSE METER 2019-03-21 05:45:00 Test Item Value Reference Range Interpretation Comments POC-GLUCOSE METER 89 mg/dL 70-110 : TESTED A T [facility] 6720 (BEAKER) (test code = [facility] [place], 1538) 23759: Nutrition And Dietetics Instructor/Techni aaron ID = [id number] for EDISON CALDWELL U/S, ABDOMINAL, [id number] 05:36:00Abdomen limited area? Add comment if clarification [...] Luque MD Report Verified Date/Time: 03/21/2019 05:36:04 [id number] 03:16:00 Test Item Value Reference Range Interpretation Comments MAGNESIUM (BEAKER) 2.1 mg/dL 1.6-2.6 Specimen slightly (test code = 627) hemolyzed Nutrition And Dietetics Instructor ID - ELISSA [id number] 03:16:00 Test Item Value Reference Range Interpretation Comments PHOSPHORUS (BEAKER) 4.4 mg/dL 2.3-4.7 Specimen slightly (test code = 604) hemolyzed Nutrition And Dietetics Instructor ID - ELISSA [id number] 02:32:00 Test Item Value Reference Range Interpretation Comments MAGNESIUM (BEAKER) 2.1 mg/dL 1.6-2.6 Specimen slightly (test code = 627) hemolyzed Nutrition And Dietetics Instructor ID - ALEM BBASIC METABOLIC [id number] 01:30:00 Test Item Value Reference Range Interpretation [...] S NOT APPLICABLE FOR DIALYSIS PATIEN TS. Nutrition And Dietetics Instructor ID - ALEM BSpecimen slightly ictericPOCT-GLUCOSE [id number] 23:58:00 Test Item Value Reference Range Interpretation Comments POC-GLUCOSE METER 114 mg/dL 70-110 H : TESTED A T [facility] 6720 (BEAKER) (test code = [facility], 1538) 57618: Nutrition And Dietetics Instructor/Techni aaron ID = [id number] for PRASHANTH RINASATISHN [id number] 20:21:00 Test Item Value Reference Range Interpretation Comments MAGNESIUM (BEAKER) (test code = 2.1 mg/dL 1.6-2.6 627) Nutrition And Dietetics Instructor ID - ALEM BPOCT-GLUCOSE [id number] 18:23:00 Test Item Value Reference Range Interpretation Comments POC-GLUCOSE METER 98 mg/dL 70-110 : TESTED A T [facility] 6720 (BEAKER) (test code = [facility], 1538) 43300: Nutrition And Dietetics Instructor/Techni aaron ID = [id number] for SAND ERS, ISABELA BASIC METABOLIC [id number] 17:43:00 Test Item Value Reference Range Interpretation [...] S NOT APPLICABLE FOR DIALYSIS PATIEN TS. 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 Aortic Valve Trnl-dp-dkmxofkz AoV cusp calcification. Mild aortic stenosis. AoV [...] CO: 7.28 l/min LVOT CI: 3.5 l/min/m^2[facility] HospitalCT, CHEST, WITHOUT [id number] 14:58:00FINAL REPORT CT of the Chest dated [...] MDReport Verified Date/Time: 03/20/2019 14:58:27 Reading Location: [facility] C013Y CT Body Reading Room VANCOMYCIN LEVEL, TROUGH 2019-03-20 13:36:00 Test Item Value Reference Range Interpretation Comments VANCOMYCIN TROUGH (BEAKER) (test 24.0 ug/mL 10.0-20.0 H code = 522) Nutrition And Dietetics Instructor ID - BSPOCT-GLUCOSE [id number] 12:46:00 Test Item Value Reference Range Interpretation Comments POC-GLUCOSE METER 87 mg/dL 70-110 : TESTED A T [facility] 6720 (BEAKER) (test code = ILDA [place], 1538) [address]: Nutrition And Dietetics Instructor/Techni aaron ID = [id number] for ISABELA LE Hemoglobin [id number] 09:33:00 Test Item Value Reference Range Interpretation Comments Hemoglobin A1C (test code = 4548-4) 6.2 % 4.3-6.1 H Lab Interpretation (test code = Abnormal 95427-1) [facility] [id number] 09:33:00 Test Item Value Reference Range Interpretation Comments HEMOGLOBIN A1C (BEAKER) (test code = 6.2 % 4.3-6.1 H 368) Osmolality, [id number] 07:32:00 Test Item Value Reference Range Interpretation Comments Osmolality, Ur (test code = 2695-5) 540 40-1,400 mOsm/kg Lab Interpretation (test code = Normal 32634-8) [facility] HospitalOSMOLALITY, [id number] 07:32:00 Test Item Value Reference Range Interpretation Comments OSMOLALITY URINE (BEAKER) (test 540 mOsm/kg 40-1,400 code = 614) ABORH, [id number] 06:44:00 Test Item Value Reference Range Interpretation Comments ABO Grouping (test code = 2588) A Rh Factor (test code = 2589) NEG [facility] HospitalTROPONIN [id number] 06:34:00 Test Item Value Reference Range Interpretation [...] failure, acidosis, acute neurological disease, and persistent tachyarrhythmia.Nutrition And Dietetics Instructor ID - SANDRA WLACTIC ACID, VENOUS 2019-03-20 06:14:00 Test Item Value Reference Range Interpretation Comments LACTATE BLOOD VENOUS (2) (BEAKER) 2.0 mmol/L 0.5-2.2 (test code = 2872) Nutrition And Dietetics Instructor ID - SANDRA Christiansen slightly ictericPOCT-GLUCOSE [id number] 05:56:00 Test Item Value Reference Range Interpretation Comments POC-GLUCOSE METER 86 mg/dL 70-110 : TESTED A T [facility] 6720 (BEAKER) (test code = ILDA [place], 1538) [address]: Nutrition And Dietetics Instructor/Techni aaron ID = [id number] for CHARLEEN OLIVER CBC W/PLT COUNT & AUTO [id number] 05:35:00 Test Item Value Reference Range Interpretation [...] code = 2801) URINALYSIS W/ REFLEX URINE [id number] 04:38:00 Test Item Value Reference Range Interpretation [...] = 516) SOURCE(BEAKER) (test code = 2795) Nutrition And Dietetics Instructor ID - [auto]Nutrition And Dietetics Instructor ID - techRAD, CHEST, 1 VIEW, NON [id number] 04:29:00Reason for exam:->pneumonia, COPD exac, CHF exacShould [...] Goldstein Verified Date/Time: 03/20/2019 04:29:54 BLOOD GAS, [id number] 04:12:00 Test Item Value Reference Range Interpretation [...] = 1819) 30.0 % TSH/Free T4 If [id number] 04:07:00 Test Item Value Reference Range Interpretation Comments TSH (test code = 91017-2) 3.06 0.35- 4.94 uIU/mL DORI (test code = DORI) Nutrition And Dietetics Instructor ID - BS Lab Interpretation (test Normal code = 59870-9) [facility] HospitalTSH/FREE T4 IF [id number] 04:07:00 Test Item Value Reference Range Interpretation Comments THYROID STIMULATING HORMONE 3.06 uIU/mL 0.35-4.94 (BEAKER) (test code = 772) Nutrition And Dietetics Instructor ID - SUJATHAROPONIN [id number] 03:57:00 Test Item Value Reference Range Interpretation [...] failure, acidosis, acute neurological disease, and persistent tachyarrhythmia.Nutrition And Dietetics Instructor ID - SANDRA WB-TYPE NATRIURETIC FACTOR (BNP)2019-03-20 03:53:00 Test Item Value Reference Range Interpretation Comments B-TYPE NATRIURETIC PEPTIDE (BEAKER) 907 pg/mL 0-100 H (test code = 700) Nutrition And Dietetics Instructor ID - BSLipid [id number] 03:52:00 Test Item Value Reference Range Interpretation Comments Triglycerides (test 60 mg/dL Specimen code = 2571-8) slightly hemolyzed Cholesterol (test 55 mg/dL Specimen code = 2093-3) slightly hemolyzed HDL (test code = 15 mg/dL 5-9) LDL Calculated (test 28 mg/dL code = 14250-5) DORI (test code = Triglyceride DORI) Reference Range: Low Risk <150 Borderline 150-199 High Risk 200-499 Very High Risk >=500 Cholesterol Reference Range: Low Risk <200 Borderline 200-239 High Risk >240 HDL Cholesterol Reference Range: Low Risk >=60 High Risk <40 LDL Cholesterol Reference Range: Optimal <100 Near Optimal 100-129 Borderline 130-159 High 160-189 Very High >=190 Nutrition And Dietetics Instructor ID - SANDRA WSpecimen slightly icteric [facility]BAS[facility]OLIC [id number] 03:52:00 Test Item Value Reference Range Interpretation [...] S NOT APPLICABLE FOR DIALYSIS PATIEN TS. Nutrition And Dietetics Instructor ID - SANDRA SEWELLannacely slightly ictericHEPATIC FUNCTION [id number] 03:52:00 Test Item Value Reference Range Interpretation [...] Specimen slightly (test code = 347) hemolyzed Nutrition And Dietetics Instructor ID - SANDRA Christiansen slightly ictericLIPID [id number] 03:52:00 Test Item Value Reference Range Interpretation [...] Borderline 130-159 High 160-189 Very High >=190 Nutrition And Dietetics Instructor ID - SANDRAWSpecimen slightly ictericVANCOMYCIN LEVEL, RANDOM 2019-03-20 03:51:00 Test Item Value Reference Range Interpretation Comments VANCOMYCIN RANDOM (BEAKER) (test 52.3 ug/mL code = 523) Reference Range: No NormalsOperator ID Sultana FLORES [id number] 03:49:00 Test Item Value Reference Range Interpretation Comments MAGNESIUM (BEAKER) 2.1 mg/dL 1.6-2.6 Specimen slightly (test code = 627) hemolyzed Nutrition And Dietetics Instructor ID - SANDRA [id number] 03:49:00 Test Item Value Reference Range Interpretation Comments PHOSPHORUS (BEAKER) 3.0 mg/dL 2.3-4.7 Specimen slightly (test code = 604) hemolyzed Nutrition And Dietetics Instructor ID - SANDRA [id number] 03:36:00 Test Item Value Reference Range Interpretation Comments FIBRINOGEN LEVEL (BEAKER) (test 492 mg/dl 225-434 H code = 658) [id number] 03:36:00 Test Item Value Reference Range Interpretation [...] is2.5-3.5 for patients wiht mechanical heart valves.PROTHROMBIN TIME/[id number] 03:35:00 Test Item Value Reference Range Interpretation [...] for patients wiht mechanical heart valves.Chloride, random [id number] 03:33:00 Test Item Value Reference Range Interpretation Comments ChlorideUr (test <20 meq/L code = 00899-1) DORI (test code = Reference Range: No DORI) NormalsOperator ID - BS [facility] CenterODIUM, RANDOM [id number] 03:33:00 Test Item Value Reference Range Interpretation Comments SODIUM URINE (BEAKER) (test code = < meq/L 243) Reference Range: No NormalsOperator ID - BSCHLORIDE, RANDOM [id number] 03:33:00 Test Item Value Reference Range Interpretation Comments CHLORIDE URINE (BEAKER) (test code = < meq/L 682) Reference Range: No NormalsOperator ID - BSProtein, random [id number] 03:32:00 Test Item Value Reference Range Interpretation Comments Protein, Urine (test code = 72 mg/dL 0-14 H 2888-6) DORI (test code = DORI) Nutrition And Dietetics Instructor ID - BS Lab Interpretation (test Abnormal code = 53002-4) [facility] HospitalCREATININE, RANDOM [id number] 03:32:00 Test Item Value Reference Range Interpretation Comments CREATININE URINE (BEAKER) (test 120.7 mg/dL code = 375) Reference Range: No NormalsOperator ID - BSPROTEIN, RANDOM [id number] 03:32:00 Test Item Value Reference Range Interpretation Comments PROTEIN, URINE (BEAKER) (test code = 72 mg/dL 0-14 H 1569) Nutrition And Dietetics Instructor ID - BSUREA NITROGEN, RANDOM [id number] 03:32:00 Test Item Value Reference Range Interpretation Comments UREA NITROGEN URINE (BEAKER) (test 915 mg/dL code = 538) Reference Range: No NormalsOperator ID - BSStrep pneumoniae [id number] 03:31:00 Test Item Value Reference Range Interpretation Comments Strep pneumoniae Presumptive negative Presumptive Antigen (test code = [place] [address]-3) pneumonia - see pneumococcal comment pneumonia - see comment, Presumptive negative for pneumococcal meningitis DORI (test code = DORI) Presumptive negative for pneumococcal pneumonia, suggesting no current or recent pneumococcal infection. Infection due to S. pneumoniae cannot be ruled out since the antigen present in the sample may be below the detection limit of the test. Lab Interpretation Normal (test code = 22251-6) [facility] CenterTREP PNEUMONIAE [id number] 03:31:00 Test Item Value Reference Range Interpretation [...] the detection limit of the test.Legionella antigen, [id number] 03:30:00 Test Item Value Reference Range Interpretation Comments Legionella Urine Negative - see Negative for L. Antigen (test code comment pneumophi la = 20366-4) serogroup 1 ant igen, suggesting no r ecent or current infe ction with this serog roup. Legionellosis c annot be ruled out si nce other serogroup s and species may cau se disease. [facility] HospitalLEGIONELLA ANTIGEN, [id number] 03:30:00 Test Item Value Reference Range Interpretation Comments L. PNEUMOPHILA Negative - see Negative fo r L. SEROGP 1 UR AG comment pneumophila (BEAKER) (test code serogrou p 1 antigen, = 1156) suggesting no r ecent or current infe ction with this serog roup. Legionellosis c annot be ruled out si nce other serogroup s and species may cau se disease. POCT-GLUCOSE [id number] 00:50:00 Test Item Value Reference Range Interpretation Comments POC-GLUCOSE METER 87 mg/dL 70-110 : TESTED A T [facility] 6720 (BEAKER) (test code = DOROTAJAVI [place], 1538) [address]: Nutrition And Dietetics Instructor/Techni aaron ID = [id number] for CHARLEEN OLIVER [id number] 09:16:00 Test Item Value Reference Range Interpretation Comments MAGNESIUM (BEAKER) (test code = 1.7 mg/dL 1.6-2.6 627) [id number] 09:16:00 Test Item Value Reference Range Interpretation Comments PHOSPHORUS (BEAKER) (test code = 4.2 mg/dL 2.3-4.7 604) BASIC METABOLIC [id number] 05:44:00 Test Item Value Reference Range Interpretation [...] PATIEN TS. CBC W/PLT COUNT & AUTO [id number] 05:29:00 Test Item Value Reference Range Interpretation [...] PERCENT (BEAKER) (test code = 2801) TROPONIN [id number] 22:36:00 Test Item Value Reference Range Interpretation [...] acidosis, acute neurological disease, and persistent tachyarrhythmia.TROPONIN [id number] 16:36:00 Test Item Value Reference Range Interpretation [...] neurological disease, and persistent tachyarrhythmia.TSH/FREE T4 IF [id number] 10:58:00 Test Item Value Reference Range Interpretation Comments THYROID STIMULATING HORMONE 1.16 uIU/mL 0.35-4.94 (BEAKER) (test code = 772) TROPONIN [id number] 10:44:00 Test Item Value Reference Range Interpretation [...] w/ doppler (cw/pw/color)2019-01-23 10:36:33Ejection FractionSLE ECHO HEARTLAB [facility]ITALESSON CPACSInterface, External Ris In - 01/23/2019 10:36 AM CSTTransthoracic Echocardiography Report (TTE) Demographics Patient Name JOHN DELUNA Date of Study 01/22/2019 Gender Male Visit Number [id number] Race Unknown Room Number 2238 Number Date of 1955 Referring BRITTON HAMILTON Physician Age 63 year(s) Fretted Instrument Inspector Johnny Eller NB, RDCS,RVT,RDMS Art History Professor Aliya Yee Interpreting Lyn Mike MD Ciolan [...] of 1.82 cm2. 4. Mild mitral regurgitation. Fsrz-xb-xmapdcne mitral stenosis secondary to MAC. 5. Aortic [...] severity assessment is unreliable . Aortic Valve Tlcf-gr-zthveyby AoV cusp calcification. Mild aortic stenosis. AoV area at rest by continuity equation is in the range of 1.82 cm2. Preserved stroke volume. Mitral Valve Mild MV leaflet thickening. Severe mitral annular and subvalvular calcification. Mild mitral regurgitation. Jiwu-ur-mwcbxznk mitral stenosis secondary to MAC. MV area [...] CO: 4.89 l/min LVOT CI: 2.42 l/min/m^2[facility] HospitalMAGNESIUM2019-11-28 10:05:00 Test Item Value Reference Range Interpretation Comments MAGNESIUM (BEAKER) (test code = 1.7 mg/dL 1.6-2.6 627) MR, MRA, BRAIN, WITHOUT [id number] 08:26:00FINAL REPORT MRV Head CLINICAL HISTORY:Stroke, follow upconcern for transverse sinus thrombosis, need MRV please TECHNIQUE: MRV of the head utilizing 2-D hkyu-zi-bfcdty technique. COMPARISON: CTA 01/22/2019 FINDINGS: There is an irregular filling defect within the medial aspect of the left transverse sinus, corresponding with the abnormality seen on yesterday's CTA. The other major dural venous sinuses in the brain are patent. IMPRESSION: Filling defect within the medial aspect of the left transverse sinus remains concerning for venous thrombosis. Signed: Delaney Rajan MDRepanni Verified Date/Time: 01/23/2019 08:26:36 MRA head without IV [id number] 08:26:00Interface, External Ris In - 01/23/2019 8:29 AM CSTFINAL REPORT MRV Head CLIN ICAL HISTORY:Stroke, follow upconcern for transverse sinus thrombosis, need MRV please TECHNIQUE: MRV of the head utilizing 2-D kqrb-eg-wskacn technique. COMPARISON: CTA 01/22/2019 FINDINGS: There is an irregular filling defect within the medial aspect of the left transverse sinus, corresponding with the abnormality seen on yesterday's CTA. The other major dural venous sinuses in the brain are patent. IMPRESSION: Filling defect within the medial aspect of the left transverse sinus remains concerningfor venous thrombosis. Signed: Delaney Rajan Verified Date/Time: 01/23/2019 08:26:36 [facility] [id number] 05:55:00 Test Item Value Reference Range Interpretation [...] PATIEN TS. CBC W/PLT COUNT & AUTO [id number] 05:34:00 Test Item Value Reference Range Interpretation [...] 0-1 PERCENT (BEAKER) (test code = 2801) [id number] 20:49:00 Test Item Value Reference Range Interpretation Comments POTASSIUM (BEAKER) (test code = 2.8 meq/L 3.5-5.1 L 379) MR, BRAIN, WITHOUT [id number] 19:25:00Reason for exam:->Ischemic Stroke EvaluationFINAL REPORT MR, [...] Date/Time: 01/22/2019 19:25:11 MR brain without IV [id number] 19:25:00Interface, External Ris In - 01/22/2019 7:28 [...] Signed: Delaney Rajan Verified Date/Time: 01/22/2019 19:25:11 [facility]CT[facility] [id number] 19:16:00FINAL REPORT CLINICAL HISTORY: Neuro deficit, acute, [...] PM. Signed: Delaney Rajan Verified Date/Time: 01/22/2019 19:16:06 CT, CAROTID, [id number] 19:16:00FINAL REPORT CLINICAL HISTORY: Neuro deficit, acute, [...] Delaney Rajan MDReport Verified Date/Time: 01/22/2019 19:16:06 [facility] [id number] 19:16:00Interface, External Ris In - 01/22/2019 7:18 [...] Delaney Rajan MDReport Verified Date/Time: 01/22/2019 19:16:06 [facility] CTA [id number] 19:16:00Interface, External Ris In - 01/24/2019 2:56 [...] Meservy, Delaney MDReport Verified Date/Time: 01/22/2019 19:16:06 [facility] CenterRPR2019-11-27 11:47:00 Test Item Value Reference Range Interpretation Comments RPR (test code = 64281-2) Nonreactive Nonreactive Lab Interpretation (test code = Normal 75870-6) [facility] HospitalRPR2019-11-27 11:47:00 Test Item Value Reference Range Interpretation Comments RPR SCREEN (BEAKER) (test code = Nonreactive Nonreactive 420) [id number] 08:23:00 Test Item Value Reference Range Interpretation Comments MAGNESIUM (BEAKER) (test code = 1.7 mg/dL 1.6-2.6 627) FastingHEMOGLOBIN [id number] 08:10:00 Test Item Value Reference Range Interpretation Comments HEMOGLOBIN A1C (BEAKER) (test code = 5.7 % 4.3-6.1 368) FastingLIPID [id number] 05:15:00 Test Item Value Reference Range Interpretation [...] 130-159 High 160-189 Very High >=190 FastingTROPONIN [id number] 05:11:00 Test Item Value Reference Range Interpretation [...] neurological disease, and persistent tachyarrhythmia.FastingVITAMIN B12 AND [id number] 04:01:00 Test Item Value Reference Range Interpretation Comments VITAMIN B12 (BEAKER) (test code = 1973 pg/mL 213-816 H 774) FOLATE (BEAKER) (test code = 362) 18.5 ng/mL >=7.0 TSH/FREE T4 IF [id number] 03:48:00 Test Item Value Reference Range Interpretation Comments THYROID STIMULATING HORMONE 1.38 uIU/mL 0.35-4.94 (BEAKER) (test code = 772) TROPONIN [id number] 00:15:00 Test Item Value Reference Range Interpretation [...] acute neurological disease, and persistent tachyarrhythmia.BASIC METABOLIC [id number] 00:11:00 Test Item Value Reference Range Interpretation [...] FOR DIALYSIS PATIEN TS. Specimen slightly ictericPROTHROMBIN TIME/[id number] 23:48:00 Test Item Value Reference Range Interpretation [...] mechanical heart valves.RAD, CHEST, 1 VIEW, NON [id number] 23:46:00Reason for exam:->strokeShould this be performed at the bedside?->YesFINAL REPORT INDICATION: stroke TECHNIQUE: Chest radiograph, single view, portable technique. FINDINGS / IMPRESSION: Patient is status post median sternotomy.Heart shadow is enlarged and there is a small right pleural effusion.No overt pulmonary edema, discrete pneumonia, or pneumothorax is demonstrated.Osseous structures unremarkable. Signed: Jesus Grantepanni VerifiedDate/Time: 01/21/2019 23:46:27 Reading Location: [address] Consult Reading Room CBC W/PLT COUNT & AUTO [id number] 23:39:00 Test Item Value Reference Range Interpretation [...]
[2019-08-29 19:37] LABS: Absolute Lymphocytes (CBC) 0.7 K/uL (0.7-4.9); Basophils % 0.3 % (0-1.3); Hematocrit 39.2 % (39.6-49.0); Lymphocytes % 5.1 % (15.3-44.8); RBC Red Blood Cell Count 5.01 M/uL (4.33-5.43)
--- NOTE | 2019-08-29 19:37 | RAD REPORT ---
EXAM DESCRIPTION: CT - Head Brain Wo Cont - 08/29/2019 7:11 pm CLINICAL HISTORY: CONFUSED, transient alteration of awareness COMPARISON: Head Brain Wo Cont dated 08/21/2019 TECHNIQUE: Axial 5 mm thick images of the head were obtained without IV contrast. All CT scans are performed using dose optimization technique as appropriate and may include automated exposure control or mA/KV adjustment according to patient size. FINDINGS: No intracranial hemorrhage, mass, edema or shift of mid-line structures. No acute infarcti on changes seen. No abnormal extra-axial fluid collections. Ventricles are normal. Atrophy changes ar e minimal. Chronic ischemic changes are scattered in the cerebral white matter. Mastoid air cells and visualized portions of the paranasal sinuses are clear. No acute bony findings. IMPRESSION: No acute intracranial finding identified. Patient has mild to moderate chronic ischemic change with minimal atrophy. No new findings from the short interval August 20 study.
[2019-08-29 19:57] LABS: Albumin 2.6 g/dL (3.4-5.0); Bilirubin Total 1.6 mg/dL (0.2-1.0); Protein, Total 7.9 g/dL (6.4-8.2)
[2019-08-29 20:05] LABS: Potassium 2.6 mmol/L (3.5-5.1)
[2019-08-29 20:07] LABS: Urine Blood NEGATIVE (NEG); Urine Glucose NEGATIVE (NEG); Urine Protein NEGATIVE (NEG); Urine pH 8.5 (5.0-7.0)
[2019-08-29 20:23] LABS: Blood Morphology Comment NOTED (NOT SEEN); Platelet Estimate ADEQ
[2019-08-29 20:40] LABS: Urine Bacteria <20 /HPF (NONE SEEN); Urine Culture Reflex Order NOT NEEDED; Urine RBC <5 /HPF (NONE SEEN)
--- NOTE | 2019-08-29 21:10 | RAD REPORT ---
EXAM DESCRIPTION: CT - Chest Abdomen Pelvis W Cont - 08/29/2019 8:28 pm CLINICAL HISTORY: ams, chest pain, abdominal pain COMPARISON: Chest Abdomen Pelvis W Cont dated 05/30/2019; Chest Single View dated 08/21/2019 TECHNIQUE: Following dynamic enhancement using 100 milliliters nonionic IV contrast, axial imaging o f the chest, abdomen and pelvis was performed. Biphasic technique was utilized through the abdomen. No oral contrast administered. All CT scans are performed using dose optimization technique as appropriate and may include automated exposure control or mA/KV adjustment according to patient size. FINDINGS: CT chest images have motion degradation. Minimal airspace opacities are present in the pos terior gutter on the left. Minimal left pleural effusion is present. Right lung base atelectasis mark ges are present. Patient has a loculated hydropneumothorax this a very small remnant of a much larger hydropneumothorax seen on the May imaging. Minimal airspace opacities are present in the posterior base on the right. Cardiomegaly is present. No pericardial effusion. Dilated ascending aorta to 5 cm noted similar to Ap ril. No acute aortic or pulmonary arterial tree finding. Mediastinal and hilar regions show no mass o r abnormal lymphadenopathy. No chest wall mass or axillary lymphadenopathy. No acute rib finding. No focal liver lesions seen. Liver capsule nodularity again noted. Pancreas and spleen show no suspic ious findings. Small gallstones seen in a normal-sized gallbladder. No biliary tree dilatation. Symme tric renal function is seen with no mass or hydronephrosis. No adrenal abnormalities. No urinary blad gilda abnormality. Numerous dilated varices seen in the upper abdomen. No gastric dilatation or wall thickening. PEG tube is in place with no acute component seen. No acute small bowel finding. No evidence of appendicitis. Diverticulosis is minimal. Moderately large stool volume fills the colon from cecum to mid descending colon. No acute GI process suspected. No free air , free fluid or focal inflammatory stranding. No mass or bulky lymphadenopathy. No acute or destructive bony process. No significant vascular findings. IMPRESSION: Patient has a loculated right-sided hydropneumothorax. This is a small fraction of the s ize that was seen on the May imaging. Patchy airspace opacities are present in both lung bases. Minimal left pleural effusion is present. C ardiomegaly is present. Minimal lung base infiltrates are possible. Failure/ volume overload possible as well. Large stool volume filling the majority of the colon. No acute CT abdomen or pelvis finding.
[2019-08-29] MEDS ORDERED: KCL 20 MEQ/100 mL IVPB 20 MEQ/100 ML BAG IV ONE (21:11)
[2019-08-29] MEDS ORDERED: NA CHLORIDE 0.9% 1,000 ML ONE (21:11)
--- NOTE | 2019-08-29 21:19 | RAD REPORT ---
EXAM DESCRIPTION: RAD - Chest Single View - 08/29/2019 8:45 pm CLINICAL HISTORY: COUGH COMPARISON: CT chest same date, portable chest August 20 TECHNIQUE: AP portable chest image was obtained 08/29/2019 8:45 pm . FINDINGS: Lung volumes are normal. Interstitial opacification is increased somewhat overall and card iomegaly is present. Patient may have a mild failure or volume overload. Vasculature is increased ove r comparison. Trachea is midline. Sternotomy wires are in place. Patient has a small right lung base hydropneumothorax. This is similar to the comparison study. No p neumothorax. No acute aortic findings suspected. IMPRESSION: Suspected CHF/volume overload. Right lung base remnant hydropneumothorax similar to the August 20 study.
--- NOTE | 2019-08-29 21:47 | EDPHYS ---
Physician Documentation [facility] Name: Tex Vergara Age: 63 yrs Sex: Male : 1955 Arrival Date: 08/29/2019 Time: 18:25 Bed 20 Private MD: ED Physician Ann Fowler HPI: 08/28 20:24 This 63 yrs old Male presents to ER via EMS with complaints of Altered Mental snw Status. 20:24 The patient presents with confusion, trouble concentrating. Onset: The symptoms/episode snw began/occurred gradually, and became persistent intermittently over some time, family concerned re: dementia. Possible causes: unknown. Associated signs and symptoms: The patient has no apparent associated signs or symptoms. Current symptoms: In the emergency department the patient's symptoms are unchanged from the initial presentation. Patient's baseline: Neuro: orientated to person, place, Motor: no deficits, Ambulation: walks without assistance. The patient has experienced similar episodes in the past. It is unknown whether or not the patient has recently seen a physician. Historical: - Allergies: 18:33 No Known Allergies; - Home Meds: 18:33 potassium chloride Oral [Active]; Eliquis 5 mg Oral tab 1 tab 2 times per day [Active]; Amiodarone Oral [Active]; midodrine oral oral [Active]; Furosemide Oral [Active]; Ferrous Sulfate Oral [Active]; Bupropion Oral [Active]; atorvastatin oral oral [Active]; Melatonin Oral [Active]; Aspirin Oral [Active]; - PMHx: 18:33 Atrial Fib; CHF; COPD; Hypertension; TIA; stroke; - PSHx: 18:33 peg tube; heart transplant; CABG; - Immunization history:: Adult Immunizations unknown. - Social history:: Smoking status: unknown. ROS: 20:30 Constitutional: Negative for fever, chills, and weight loss, Eyes: Negative for injury, snw pain, redness, and discharge, ENT: Negative for injury, pain, and discharge, Neck: Negative for injury, pain, and swelling, Cardiovascular: Negative for chest pain, palpitations, and edema, Respiratory: Negative for shortness of breath, cough, wheezing, and pleuritic chest pain, Abdomen/GI: Negative for abdominal pain, nausea, vomiting, diarrhea, and constipation, Back: Negative for injury and pain, : Negative for injury, bleeding, discharge, and swelling, MS/Extremity: Negative for injury and deformity, Skin: Negative for injury, rash, and discoloration. 20:30 Neuro: Positive for altered mental status. Exam: 20:30 Head/Face: Normocephalic, atraumatic. Eyes: Pupils equal round and reactive to light, snw extra-ocular motions intact. Lids and lashes normal. Conjunctiva and sclera are non-icteric and not injected. Cornea within normal limits. Periorbital areas with no swelling, redness, or edema. ENT: Nares patent. No nasal discharge, no septal abnormalities noted. Tympanic membranes are normal and external auditory canals are clear. Oropharynx with no redness, swelling, or masses, exudates, or evidence of obstruction, uvula midline. Mucous membranes moist. Neck: Trachea midline, no thyromegaly or masses palpated, and no cervical lymphadenopathy. Supple, full range of motion without nuchal rigidity, or vertebral point tenderness. No Meningismus. Chest/axilla: Normal chest wall appearance and motion. Nontender with no deformity. No lesions are appreciated. 20:30 Abdomen/GI: Soft, non-tender, with normal bowel sounds. No distension or tympany. No guarding or rebound. No evidence of tenderness throughout. Back: No spinal tenderness. No costovertebral tenderness. Full range of motion. Skin: Warm, dry with normal turgor. Normal color with no rashes, no lesions, and no evidence of cellulitis. 20:30 MS/ Extremity: Pulses equal, no cyanosis. Neurovascular intact. Full, normal range of motion. Psych: Awake, alert, with orientation to person, place and time. Behavior, mood, and affect are within normal limits. 20:30 Constitutional: The patient appears awake, oriented to person and place 20:30 Respiratory: the patient does not display signs of respiratory distress, Respirations: normal, Breath sounds: are clear throughout, occasional cough. 20:30 Neuro: Orientation: to person, place, Mentation: able to follow commands, Memory: immediate memory is impaired, remote memory is impaired, Cranial nerves: Cerebellar function: tremulous. Vital Signs: 18:12 BP 130 / 72; Pulse 106; Resp 22; Temp 99.2; Pulse Ox 97% on R/A; Pain 0/10; ah 19:00 BP 136 / 67; Pulse 101; Resp 26; Pulse Ox 95% ; ah 20:00 BP 117 / 57; Pulse 100; Resp 24; Pulse Ox 93% ; ah 21:00 BP 107 / 67; Pulse 103; Resp 25; Pulse Ox 94% ; ah 22:00 BP 117 / 65; Pulse 104; Resp 23; Pulse Ox 95% ; ah MDM: 19:24 Patient medically screened. snw 21:43 Data reviewed: vital signs, nurses notes. Data interpreted: Pulse oximetry: on room air snw is 97 %. Interpretation: normal. Counseling: I had a detailed discussion with the patient and/or guardian regarding: the historical points, exam findings, and any diagnostic results supporting the discharge/admit diagnosis, lab results, radiology results, the need for further work-up and treatment in the hospital. Response to treatment: There is no appreciated change of the patient's symptoms at this time. Physician consultation: Ann Banegas MD was called at 21:44, was contacted at 21:44, regarding admission, to the telemetry unit. and will see patient in inpatient room. 08/28 18:57 Order name: Urine Microscopic Only; Complete Time: 20:42 bp 08/28 18:57 Order name: CBC with Diff; Complete Time: 20:24 bp 08/28 18:57 Order name: CMP; Complete Time: 20:07 bp 08/28 19:27 Order name: AMMONIA; Complete Time: 20:04 ah 08/28 19:42 Order name: Manual Differential; Complete Time: 20:24 EDMS 08/28 20:04 Order name: Urine Dipstick--Ancillary (enter results); Complete Time: 20:08 mw2 08/28 22:04 Order name: COVID-19 [facility] 08/28 22:32 Order name: Comprehensive Metabolic Panel EDID 08/28 22:32 Order name: Comprehensive Metabolic Panel EDID 08/28 22:32 Order name: Lactate EDID 08/28 22:32 Order name: Lactate EDMS 08/28 22:32 Order name: Magnesium EDID 08/28 22:32 Order name: Magnesium EDMS 08/28 22:32 Order name: NT PRO-BNP EDID 08/28 18:57 Order name: CT Head Brain wo Cont; Complete Time: 19:52 bp 08/28 18:57 Order name: EKG; Complete Time: 18:58 bp 08/28 18:57 Order name: EKG - Nurse/Tech; Complete Time: 23:19 bp 08/28 18:57 Order name: Urine Dipstick-Ancillary (obtain specimen); Complete Time: 20:02 bp 08/28 20:07 Order name: Chest Single View XRAY; Complete Time: 21:24 snw 08/28 20:07 Order name: CT Chest, Abdomen, Pelvis - W/Contrast; Complete Time: 21:24 snw 08/28 22:32 Order name: NT PRO-BNP EDMS 08/28 22:32 Order name: Phosphorus EDMS 08/28 22:32 Order name: Phosphorus EDMS 08/28 22:32 Order name: Protime (+INR) EDMS 08/28 22:32 Order name: Protime (+INR) EDMS 08/28 22:32 Order name: PTT, Activated Partial Thromb EDMS EC:20 Rate is 107 beats/min. Rhythm is irregularly irregular. QRS [place] is Normal. QT interval snw is prolonged. Clinical impression: Atrial Fibrillation. Administered Medications: 21:10 Drug: NS 0.9% 1000 ml Route: IV; Rate: 125 ml/hr; Site: right antecubital; 23:19 Follow up: Response: No adverse reaction; IV Status: Completed infusion 21:10 Drug: Potassium Chloride 20 mEq Route: IV; Rate: calculated rate; Site: right antecubital; 23:18 Follow up: Response: No adverse reaction; IV Status: Completed infusion 22:00 Drug: Lactulose 20 grams Volume: 30 ml; Route: PO; 23:18 Follow up: Response: No adverse reaction Disposition: 08/29 18:36 Co-signature as Attending Physician, Ann Fowler MD. ma2 Disposition: 08/29/19 21:46 Hospitalization ordered by Ann Banegas for Inpatient Admission. Preliminary diagnosis are Encephalopathy, unspecified, Hypokalemia, Atrial fibrillation and flutter, Fluid overload, unspecified. - Bed requested for Telemetry/MedSurg (Inpatient). - Status is Inpatient Admission. ah - Condition is Stable. - Problem is an acute exacerbation. - Symptoms have worsened. Signatures: Dispatcher [facility] GUCCIID Leona Mahan RN RN mw Irma Mccann, BOWLING BALL MOLDER-C BOWLING BALL MOLDER-Csnw Kevin Acosta, RN RN Ann Fowler MD MD [facility] Odette Garcia RN RN Corrections: (The following items were deleted from the chart) 08/28 22:00 21:46 Hospitalization Ordered by Ann Banegas MD for Inpatient Admission. Preliminary diagnosis is Encephalopathy, unspecified; Hypokalemia; Atrial fibrillation and flutter; Fluid overload, unspecified. Bed requested for Telemetry/MedSurg (Inpatient). Status is Inpatient Admission. Condition is Stable. Problem is an acute exacerbation. Symptoms have worsened. snw 22:30 20:30 Cardiovascular: Rate: tachycardic, Rhythm: irregularly irregular, Pulses: no snw pulse deficits are appreciated, Heart sounds: normal, Edema: 2+ edema to level of left ankle and right ankle, snw 22:40 22:00 08/29/2019 21:46 Hospitalization Ordered by Ann Banegas MD for Inpatient Admission. Preliminary diagnosis is Encephalopathy, unspecified; Hypokalemia; Atrial fibrillation and flutter; Fluid overload, unspecified. Bed requested for Telemetry/MedSurg (Inpatient). Status is Inpatient Admission. Condition is Stable. Problem is an acute exacerbation. Symptoms have worsened. 23:48 22:40 08/29/2019 21:46 Hospitalization Ordered by Ann Banegas MD for Inpatient Admission. Preliminary diagnosis is Encephalopathy, unspecified; Hypokalemia; Atrial fibrillation and flutter; Fluid overload, unspecified. Bed requested for Telemetry/MedSurg (Inpatient). Status is Inpatient Admission. Condition is Stable. Problem is an acute exacerbation. Symptoms have worsened.
--- NOTE | 2019-08-29 21:47 | ER ---
Nurse's Notes [facility] Name: Tex Vergara Age: 63 yrs Sex: Male : 1955 Arrival Date: 08/29/2019 Time: 18:25 Bed 20 Private MD: Diagnosis: Encephalopathy, unspecified;Hypokalemia;Atrial fibrillation and flutter;Fluid overload, unspecified Presentation: 08/28 18:12 Chief complaint: EMS states: that family reports AMS since this morning. Alert to self only. BGL 115, 122/80, 99.4, 94%. Coronavirus screen: Proceed with normal triage. Ebola Screen: No symptoms or risks identified at this time. Initial Sepsis Screen: Does the patient meet any 2 criteria? No. Patient's initial sepsis screen is negative. Does the patient have a suspected source of infection? No. Patient's initial sepsis screen is negative. Risk Assessment: Do you want to hurt yourself or someone else? Patient reports no desire to harm self or others. Onset of symptoms was August 29, 2019. 18:12 Method Of Arrival: EMS: [facility] 18:12 Acuity: SUMMER 3 Historical: - Allergies: 18:33 No Known Allergies; - Home Meds: 18:33 potassium chloride Oral [Active]; Eliquis 5 mg Oral tab 1 tab 2 times per day [Active]; Amiodarone Oral [Active]; midodrine oral oral [Active]; Furosemide Oral [Active]; Ferrous Sulfate Oral [Active]; Bupropion Oral [Active]; atorvastatin oral oral [Active]; Melatonin Oral [Active]; Aspirin Oral [Active]; - PMHx: 18:33 Atrial Fib; CHF; COPD; Hypertension; TIA; stroke; - PSHx: 18:33 peg tube; heart transplant; CABG; - Immunization history:: Adult Immunizations unknown. - Social history:: Smoking status: unknown. Screenin:34 Abuse screen: Denies threats or abuse. Nutritional screening:. Tuberculosis screening: No symptoms or risk factors identified. Fall Risk None identified. Assessment: 18:35 General: Appears in no apparent distress. Behavior is calm, cooperative. Pain: Denies pain. Neuro: Level of Consciousness is awake, alert, obeys commands, Oriented to person, Environmental Department Manager are equal bilaterally. Cardiovascular: Heart tones S1 S2 absent Capillary refill < 3 seconds Patient's skin is warm and dry. Rhythm is atrial fibrillation. Respiratory: Airway is patent Respiratory effort is even, unlabored. GI: PEG tube in place, clamped. Site with drainage. Bowel sounds present X 4 quads. Derm: Skin is intact, is healthy with good turgor, Skin is. 19:06 Reassessment: Pt to radiology per stretcher for Ct scan. Vital Signs: 18:12 BP 130 / 72; Pulse 106; Resp 22; Temp 99.2; Pulse Ox 97% on R/A; Pain 0/10; ah 19:00 BP 136 / 67; Pulse 101; Resp 26; Pulse Ox 95% ; ah 20:00 BP 117 / 57; Pulse 100; Resp 24; Pulse Ox 93% ; 21:00 BP 107 / 67; Pulse 103; Resp 25; Pulse Ox 94% ; ah 22:00 BP 117 / 65; Pulse 104; Resp 23; Pulse Ox 95% ; ED Course: 18:25 Patient arrived in ED. 18:25 Odette Garcia, RN is Primary Nurse. 18:27 Triage completed. 18:35 Patient has correct armband on for positive identification. Bed in low position. Side rails up X2. set up worker on. Pulse ox on. NIBP on. 19:00 Inserted saline lock: 20 gauge in right antecubital area, using aseptic technique. 19:08 Irma Mccann FNP-C is [facility]. snw 19:08 Ann Fowler MD is Attending Physician. snw 19:11 CT Head Brain wo Cont In Process Unspecified. EDMS 19:50 Urine collected: straight cath specimen, clear, [place] colored, Amount Returned: 300mL. jp3 20:02 Warm blanket given. Verbal reassurance given. jp3 20:29 CT Chest, Abdomen, Pelvis - W/Contrast In Process Unspecified. EDMS 20:45 Chest Single View XRAY In Process Unspecified. EDMS 21:44 Ann Banegas MD is Hospitalizing Provider. snw 23:19 No provider procedures requiring assistance completed. Patient admitted, IV remains in ah place. Administered Medications: 21:10 Drug: NS 0.9% 1000 ml Route: IV; Rate: 125 ml/hr; Site: right antecubital; 23:19 Follow up: Response: No adverse reaction; IV Status: Completed infusion 21:10 Drug: Potassium Chloride 20 mEq Route: IV; Rate: calculated rate; Site: right antecubital; 23:18 Follow up: Response: No adverse reaction; IV Status: Completed infusion 22:00 Drug: Lactulose 20 grams Volume: 30 ml; Route: PO; 23:18 Follow up: Response: No adverse reaction Outcome: 21:46 Decision to Hospitalize by Provider. snw 23:33 Admitted to Med/surg accompanied by becky, via stretcher, room 402, with chart, Report called to [facility] 23:33 Condition: stable 23:33 Instructed on the need for admit. 23:48 Patient left the ED. Signatures: Dispatcher [employer] EDMS Irma Mccann, PREPPER-C PREPPER-Csnw Herbert Young jp3 Odette Garcia, RN RN
[2019-08-29] MEDS ORDERED: LACTULOSE 20 GM/30 ML UCUP ONE (21:56)
[2019-08-29] MEDS ORDERED: ONDANSETRON 4 MG/2 ML VIAL IV PRN (22:25)
[2019-08-29] MEDS ORDERED: ACETAMINOPHEN 500 MG TAB PO PRN (22:25)
[2019-08-29] MEDS: NA CHLORIDE 0.9% 1,000 ML IV SCH (23:00)
[2019-08-30] VITALS: O2SAT 95
[2019-08-30] MEDS: LACTULOSE 20 GM/30 ML UCUP PO SCH ×4 (00:30→17:35)
[2019-08-30] MEDS ORDERED: POTASSIUM 25 MEQ EFFERV TAB PO ONE (00:53)
[2019-08-30 02:31] VITALS: BMI 22.2
[2019-08-30] MEDS: KCL 20 MEQ/100 mL IVPB 20 MEQ/100 ML BAG IV SCH ×2 (03:15→05:32)
[2019-08-30] MEDS: NA CHLORIDE 0.9% 1,000 ML IV SCH ×3 (05:33→19:00)
[2019-08-30 06:39] LABS: Hematocrit 34.4 % (39.6-49.0); RBC Red Blood Cell Count 4.42 M/uL (4.33-5.43)
[2019-08-30 06:40] LABS: Absolute Lymphocytes (CBC) 1.6 K/uL (0.7-4.9); Basophils % 0.4 % (0-1.3); Lymphocytes % 10.7 % (15.3-44.8)
[2019-08-30 06:44] LABS: Protime INR 1.71
[2019-08-30 07:03] LABS: ALT/SGPT 29 U/L (12-78); AST/SGOT 39 U/L (15-37); Alkaline Phosphatase 126 U/L (45-117); BUN Blood Urea Nitrogen 22 mg/dL (7-18); Bicarbonate 37 mmol/L (21-32); Bilirubin Total 1.3 mg/dL (0.2-1.0); Glucose Level 91 mg/dL (74-106); Magnesium 2.6 mg/dL (1.8-2.4); NT PRO-BNP 3458 pg/mL (<125); Phosphorus 2.9 mg/dL (2.5-4.9); Protein, Total 6.4 g/dL (6.4-8.2); Sodium Level 140 mmol/L (136-145)
[2019-08-30 07:06] LABS: Potassium 2.3 mmol/L (3.5-5.1)
--- NOTE | 2019-08-30 07:39 | P.HP ---
Certification for Inpatient Patient admitted to: Inpatient With expected LOS: >2 Midnights Patient will require the following post-hospital care: None Practitioner: I am a practitioner with admitting privileges, knowledge of patient current condition, hospital course, and medical plan of care. Services: Services provided to patient in accordance with Admission requirements found in Title 42 Section 412.3 of the Code of Federal Regulations Patient History Date of Service: 08/30/19 Reason for admission: Questionable Hepatic encephalopathy History of Present Illness: Patient is a 63-year-old gentleman with a history of atrial fibrillation, who presents to the emergency room with questionable hepatic encephalopathy. Patient's mental status is altered and ammonia level was elevated. Patient also has severe hypokalemia. This is going to be supplemented. Will continue with the lactulose and review his home medications. He may benefit from spir onolactone if he is not on this. Will get Cardiology consultation as his coagulation profile is elevated. I am not sure if he had with no severely require similar dosing of Eliquis. Patient has no known history of liver disease. Initial concern was that he may have had into hepatic encephalopathy but there is no prior diagnosis of cirrhosis. His ammonia level is slightly elevated. Will use lactulose to try to bring this down. Will review his home medications and he may need further workup as an outpatient for questionable liver disease going forward. Allergies No Known Allergies Allergy (Verified 05/15/18 11:25) Home Medications: Apixaban [Eliquis] 5 mg PO BID 03/11/19 Furosemide 40 mg FT BID 03/11/19 Amiodarone HCl [Cordarone*] 200 mg FT BID 08/22/19 Aspirin Chewable [Aspirin Chewable*] 81 mg FT DAILY 08/22/19 Atorvastatin Calcium [Lipitor] 40 mg FT BEDTIME 08/22/19 Ferrous Sulfate [Ferrous Sulfate*] 325 mg FT BID 08/22/19 Midodrine HCl [Proamatine*] 5 mg FT TID 08/22/19 Bupropion HCl [Wellbutrin Sr] 100 mg FT DAILY 08/30/19 Potassium Chloride 15 ml FT DAILY 08/30/19 - Past Medical/Surgical History Diabetic: No -: Hypertension -: Chronic back pain -: CHF -: Atrial Fibrillation -: Mild Stroke -: Back surgery -: CABG -: PEG tube - Family History Mother Medical History: Heart disease Notes: Multiple strokes - Social History Smoking Status: Current every day smoker Alcohol use: Yes CD- Drugs: No Place of Residence: Home Review of Systems is unable to be obtained Physical Examination - Vital Signs Temperature: 98.2 F Blood Pressure: 105/57 Pulse: 90 Respirations: 20 Pulse Ox (%): 95 - Physical Exam General: Alert, In no apparent distress, Oriented x1, Confused HEENT: Atraumatic, PERRLA, Mucous membr. moist/pink, EOMI, Sclerae nonicteric Neck: Supple, 2+ carotid pulse no bruit, No LAD, Without JVD or thyroid abnormality Respiratory: Clear to auscultation bilaterally, Normal air movement Cardiovascular: Irregular heart rate/rhythm, Abnormal S1 S2 Gastrointestinal: Other (Peg tube is in place), Distended Musculoskeletal: No clubbing, No tenderness, Swelling Integumentary: No rashes Neurological: Normal speech, Normal tone, Sensation intact, Cranial nerves 3-12 intact, Normal affect, Abnormal gait, Abnormal strength Lymphatics: No axilla or inguinal lymphadenopathy - Studies Laboratory Data (last 24 hrs) 08/29/19 19:25: Sodium 136, Potassium 2.6 L*, BUN 28 H, Creatinine 1.03, Glucose 99, Total Bilirubin 1.6 H, AST 60 H, ALT 36, Alkaline Phosphatase 162 H 08/29/19 19:25: WBC 13.2 H D, Hgb 12.6 L, Hct 39.2 L, Plt Count 359 D Assessment & Plan - Problems (Diagnosis) (1) Alcohol use Current Visit: Yes Status: Acute (2) Abnormal liver function Onset Date: 06/12/17 Current Visit: No Status: Acute (3) Chronic anticoagulation Current Visit: No Status: Acute (4) Chronic atrial fibrillation Current Visit: No Status: Acute (5) Tobacco abuse Onset Date: 06/12/17 Current Visit: No Status: Acute - Plan Plan: 1. Continue lactulose and repeat ammonia level 2. Liver indices are abnormal including bilirubin, albumin, coagulation profile. Patient may have initial stages of liver disease. May need GI consultation 3. Continue PEG tube feedings; patient unsure as to why he has a PEG tube 4. COVID-19 pending 5. Continue with amiodarone at this time pending cardiology consultation. Patient also on Eliquis but his coagulation profile is abnormal. Discuss with Cardiology regarding long-term anti coagulation any anti arrhythmic use in a patient with questionable liver disease 6. Laxative for constipation 7. Correct potassium; electrolyte protocol in place 8. GI and DVT prophylaxis Discharge Plan: Home Plan to discharge in: Greater than 2 days - Advance Directives Does patient have a Living Will: No Does patient have a Durable POA for Healthcare: No - Code Status/Comfort Care Code Status Assessed: Yes Code Status: Full Code Critical Care: No Time Spent Managing PTS Care (In Minutes): 45
[2019-08-30] MEDS: HOME MED 1 EA UNK (Bupropion Hcl [Wellbutrin Sr] 100 MG) FT SCH (08:41)
[2019-08-30] MEDS: POTASSIUM CHLORIDE FT SCH (08:42)
--- NOTE | 2019-08-30 08:56 | EKG ---
Test Date: 2019-08-29 Test Time: 22:17:25 Laboratory Courier: CRYSTAL MEASUREMENT RESULTS: Intervals: Rate: 107 UT: QRSD: 162 QT: 404 QTc: 539 Plain: P: UT: QRS: 21 T: 188 INTERPRETIVE STATEMENTS: Atrial fibrillation with rapid ventricular response Left bundle branch block Abnormal ECG Compared to ECG 08/21/2019 19:50:01 No significant changes Electronically Signed On 08-30-19 08:55:11 CDT by Gbariel Monsalve
[2019-08-30] MEDS ORDERED: ENOXAPARIN 40 MG/0.4 ML SQ SCH (09:00)
[2019-08-30] MEDS ORDERED: FUROSEMIDE 40 MG TABLET FT SCH (09:00)
[2019-08-30] MEDS ORDERED: APIXABAN 5 MG TABLET FT SCH (09:00)
[2019-08-30] MEDS: AMIODARONE HCL 200 MG TAB FT SCH ×2 (10:06→21:47)
[2019-08-30] MEDS: ASPIRIN 81 MG CHEWABLE TABLET FT SCH (10:07)
[2019-08-30] MEDS: MIDODRINE HCL 5 MG TABLET FT SCH ×3 (10:10→21:48)
--- NOTE | 2019-08-30 10:16 | CON ---
Date of Consultation: 08/30/[address] Banegas on 08/29/2019. I saw the patient on 08/30/2019. Reason For Consultation: Hepatic encephalopathy and atrial fibrillation. History Of Present Illness: Mr. Vergara is a 63-year-old white male, has had an aortic valve replaceme nt, bioprosthetic when he was in his 20s. Has had history of congestive heart failure, COPD, CVA, hy pertension, TIA, and chronic atrial fibrillation. We did a cardioversion on him approximately few mo nths ago and he converted to sinus rhythm, but then he reverted back to atrial fibrillation. Now, he is on amiodarone and Eliquis. His heart rate is controlled at 90. He is really having no cardiac s ymptoms from it. He came in with hepatic encephalopathy, altered mental status that has improved ove rnight with hydration. He had a potassium of 2.3 that was supplemented. He does not have any chest pain, shortness of breath, PND, orthopnea, pedal edema, palpitations, or syncope. Denied any fever o r chills. Past Medical History: As stated above. Allergies: NONE. Review of Systems: Negative. Social History: Positive for previous alcohol and tobacco use. Medications: Include amiodarone, Eliquis, Lasix, and Lipitor. Review of Systems: Noncontributory. Family History: Noncontributory. Physical Examination: General: He was alert and oriented x3. He was in atrial fibrillation, rate of 80. He was afebrile. HEENT: Negative. Neck: Supple with no bruit. Chest: Clear. Cardiac: Revealed irregularly irregular rhythm and rate without any murmurs, gallops, or rubs. Abdomen: Benign. Extremities: Revealed no clubbing, cyanosis, or edema. Diagnostic Data: White count was 14,000. Potassium is 2.3. BNP was 3458. CT of his head was negat azra. Chest x-ray showed possible CHF. CT of the chest revealed a small right hydropneumothorax, whi ch is improved from previous CTs. Impression And Plan: 1.Chronic atrial fibrillation, rate controlled on amiodarone and Eliquis. I would not do any furthe r change in his therapy as far as that is concerned. 2.Hepatic encephalopathy. 3.Congestive heart failure, chronic diastolic. 4.Status post aortic valve replacement, bioprosthetic. Echocardiogram in February 2019 was okay. His other problems include chronic obstructive pulmonary disease, hypertension, history of cerebrovas cular accident and transient ischemic attack all of those are stable. Mr. Vergara is feeling well. He is asymptomatic right now. I would continue his present regimen and m susi sure he is supplemented with potassium. When he goes home, he should be on potassium supplement since he is taking Lasix. He can go home whenever it is okay with Dr. Banegas. I will be happy to see him as an outpatient. LAY/ALICE Voice ID: [id number] Report ID: [id number]
[2019-08-30 11:20] LABS: BUN Blood Urea Nitrogen 19 mg/dL (7-18); Bicarbonate 36 mmol/L (21-32); Glucose Level 80 mg/dL (74-106); Potassium 2.3 mmol/L (3.5-5.1); Sodium Level 140 mmol/L (136-145)
[2019-08-30] MEDS ORDERED: POTASSIUM CL IV SCH ×2 (14:00)
[2019-08-30] MEDS ORDERED: NA CHLORIDE 0.9% IV SCH ×2 (14:00)
[2019-08-30] MEDS ORDERED: POTASSIUM CL 40 MEQ in NA CHLORIDE 0.9% 500 ML IV SCH (15:00)
[2019-08-30] MEDS: KCL 10 MEQ/100 ML IVPB 10 MEQ/100 ML BAG IV SCH ×5 (19:00→23:00)
[2019-08-30] MEDS ORDERED: ATORVASTATIN 40 MG TAB FT SCH (21:00)
[2019-08-31] MEDS: KCL 10 MEQ/100 ML IVPB 10 MEQ/100 ML BAG IV SCH
[2019-08-31] MEDS: NA CHLORIDE 0.9% 1,000 ML IV SCH ×4 (00:21→21:03)
[2019-08-31] MEDS: LACTULOSE 20 GM/30 ML UCUP PO SCH ×4 (00:41→21:01)
[2019-08-31] MEDS: KCL 20 MEQ/100 mL IVPB 20 MEQ/100 ML BAG IV SCH ×2 (01:00→04:36)
[2019-08-31 07:12] LABS: Absolute Lymphocytes (CBC) 1.3 K/uL (0.7-4.9); Basophils % 1.2 % (0-1.3); Hematocrit 35.3 % (39.6-49.0); Lymphocytes % 16.6 % (15.3-44.8); MPV 9.2 fL (7.6-11.3); RBC Red Blood Cell Count 4.51 M/uL (4.33-5.43)
[2019-08-31 07:20] LABS: ALT/SGPT 32 U/L (12-78); AST/SGOT 55 U/L (15-37); Alkaline Phosphatase 130 U/L (45-117); BUN Blood Urea Nitrogen 13 mg/dL (7-18); Bicarbonate 31 mmol/L (21-32); Bilirubin Direct 0.8 mg/dL (0-0.2); Bilirubin Total 1.3 mg/dL (0.2-1.0); Glucose Level 77 mg/dL (74-106); Magnesium 2.1 mg/dL (1.8-2.4); NT PRO-BNP 3812 pg/mL (<125); Protein, Total 6.5 g/dL (6.4-8.2); Sodium Level 140 mmol/L (136-145); Troponin I 0.03 ng/mL (0.0-0.045)
[2019-08-31 07:26] LABS: Potassium 2.7 mmol/L (3.5-5.1)
[2019-08-31] MEDS ORDERED: POTASSIUM 25 MEQ EFFERV TAB PO ONE (08:00)
--- NOTE | 2019-08-31 08:58 | P.PN ---
Subjective Date of Service: 08/31/19 Subjective: No new changes, No C/O voiced, Improving Patient continues to improve. Patient has no new complaints. He has some confusion. Overall much better and possible discharge once his potassium is stabilize. Review of Systems 10-point ROS is otherwise unremarkable Physical Examination - Vital Signs Temperature: 97.9 F Blood Pressure: 128/63 Pulse: 90 Respirations: 16 Pulse Ox (%): 97 - Physical Exam General: Alert, In no apparent distress, Oriented x2, Confused Respiratory: Clear to auscultation bilaterally, Normal air movement Cardiovascular: Regular rate/rhythm, Normal S1 S2 Gastrointestinal: Normal bowel sounds, Soft and benign, No tenderness, No rebound, No guarding, Distended Musculoskeletal: No clubbing, No swelling, No tenderness Neurological: Normal tone, Sensation intact, Cranial nerves 3-12 intact - Studies Medications List Reviewed: Yes Assessment & Plan - Problems (Diagnosis) (1) Alcohol use Current Visit: Yes Status: Acute (2) Abnormal liver function Onset Date: 06/12/17 Current Visit: No Status: Acute (3) Chronic anticoagulation Current Visit: No Status: Acute (4) Chronic atrial fibrillation Current Visit: No Status: Acute (5) Tobacco abuse Onset Date: 06/12/17 Current Visit: No Status: Acute - Plan Plan: 1. Continue lactulose and repeat ammonia level 2. Liver indices are abnormal including bilirubin, albumin, coagulation profile. Patient may have initial stages of liver disease. May need GI consultation as an outpt 3. Continue PEG tube feedings; patient unsure as to why he has a PEG tube 4. COVID-19 pending 5. Continue with amiodarone at this time pending cardiology consultation. Patient also on Eliquis but his coagulation profile is abnormal. Discuss with Cardiology regarding long-term anti coagulation any anti arrhythmic use in a patient with questionable liver disease 6. Laxative for constipation 7. Correct potassium; electrolyte protocol in place 8. GI and DVT prophylaxis Discharge Plan: Home Plan to discharge in: Greater than 2 days - Advance Directives Does patient have a Living Will: No Does patient have a Durable POA for Healthcare: No - Code Status/Comfort Care Code Status: Full Code Critical Care: No Time Spent Managing PTS Care (In Minutes): 30
[2019-08-31] MEDS: POTASSIUM CHLORIDE FT SCH (09:00)
[2019-08-31] MEDS: HOME MED 1 EA UNK (Bupropion Hcl [Wellbutrin Sr] 100 MG) FT SCH (09:00)
[2019-08-31] MEDS: ASPIRIN 81 MG CHEWABLE TABLET FT SCH ×2 (09:00→09:37)
[2019-08-31] MEDS: POTASSIUM 25 MEQ EFFERV TAB PO SCH ×2 (09:36→21:00)
[2019-08-31] MEDS: MIDODRINE HCL 5 MG TABLET FT SCH ×3 (09:37→21:00)
[2019-08-31] MEDS: AMIODARONE HCL 200 MG TAB FT SCH ×2 (09:37→21:00)
[2019-08-31] MEDS: JEVITY 1.5 CAL LIQUID 1,000 ML BOT FT SCH ×4 (09:57→21:02)
[2019-08-31] MEDS: ASPIRIN 81 MG CHEWABLE TABLET PO SCH (12:12)
[2019-08-31] MEDS: APIXABAN 5 MG TABLET PO SCH ×2 (12:12→20:59)
[2019-08-31 13:10] LABS: Potassium 4.5 mmol/L (3.5-5.1)
[2019-09-01] MEDS: NA CHLORIDE 0.9% 1,000 ML IV SCH (01:00)
[2019-09-01 05:45] LABS: Absolute Lymphocytes (CBC) 1.5 K/uL (0.7-4.9); Basophils % 1.2 % (0-1.3); Lymphocytes % 15.1 % (15.3-44.8); MPV 8.6 fL (7.6-11.3); RBC Red Blood Cell Count 4.55 M/uL (4.33-5.43)
[2019-09-01 06:03] LABS: BUN Blood Urea Nitrogen 11 mg/dL (7-18); Bicarbonate 30 mmol/L (21-32); Glucose Level 90 mg/dL (74-106); Magnesium 2.2 mg/dL (1.8-2.4); Phosphorus 2.2 mg/dL (2.5-4.9); Potassium 3.2 mmol/L (3.5-5.1); Sodium Level 142 mmol/L (136-145)
[2019-09-01 06:08] LABS: Albumin 1.9 g/dL (3.4-5.0); Bilirubin Direct 0.6 mg/dL (0-0.2); Bilirubin Total 1.1 mg/dL (0.2-1.0); Protein, Total 6.2 g/dL (6.4-8.2)
[2019-09-01] MEDS ORDERED: FUROSEMIDE 40 MG TABLET FT ONE (07:49)
[2019-09-01] MEDS: MIDODRINE HCL 5 MG TABLET FT SCH (08:53)
[2019-09-01] MEDS: ASPIRIN 81 MG CHEWABLE TABLET PO SCH (08:53)
[2019-09-01] MEDS: APIXABAN 5 MG TABLET PO SCH (08:53)
[2019-09-01] MEDS: JEVITY 1.5 CAL LIQUID 1,000 ML BOT FT SCH (08:53)
[2019-09-01] MEDS: AMIODARONE HCL 200 MG TAB FT SCH (08:53)
[2019-09-01] MEDS: LACTULOSE 20 GM/30 ML UCUP PO SCH (08:53)
[2019-09-01 10:09] VITALS: BP 127/78; TEMP 98.1
--- NOTE | 2019-09-01 14:39 | ECHO ---
HEIGHT: 5 ft 8 in WEIGHT: 146 lb 3.2 oz DATE OF STUDY: 09/01/[address]: Gabriel Monsalve MD 2-DIMENSIONAL: YES M.MODE: YES DOPPLER: YES COLOR FLOW: YES TDS: NO PORTABLE: NO DEFINITY: NO BUBBLE STUDY: NO DIAGNOSIS: CONGESTIVE HEART FAILURE, AORTIC VALVE REPLACEMENT CARDIAC HISTORY: CATHERIZATION: SURGERY: PROSTHETIC VALVE: PACEMAKER: MEASUREMENTS (cm) DIASTOLIC (NORMALS) SYSTOLIC (NORMALS) IVSd 1.2 (0.6-1.2) LA Diam 3.5 (1.9-4.0) LVEF 65% LVIDd 3.3 (3.5-5.7) LVIDs 2.2 (2.0-3.5) %FS 34% LVPWd 1.2 (0.6-1.2) Ao Diam 2.6 (2.0-3.7) 2 DIMENSIONAL ASSESSMENT: RIGHT ATRIUM: NOT WELL SEEN LEFT ATRIUM: ENLARGED RIGHT VENTRICLE: NOT WELL SEEN LEFT VENTRICLE: NOT WELL SEEN TRICUSPID VALVE: NOT WELL SEEN MITRAL VALVE: NOT WELL SEEN PULMONIC VALVE: NOT WELL SEEN AORTIC VALVE: HEAVILY CALCIFIED PERICARDIAL EFFUSION: NONE AORTIC ROOT: NOT WELL SEEN LEFT VENTRICULAR WALL MOTION: VERY POOR STUDY. DOPPLER/COLOR FLOW: VERY POOR STUDY COMMENTS: VERY POOR STUDY, EVALUATION IS VERY LIMITED. HEAVILY CALCIFIED AORTIC VALVE AT MITRAL VALVE. RECOMMEND REPEAT STUYD/ OR TRANSESOPHAGEAL ECHOCARDIOGRAM. TECHNOLOGIST: MERRY PRETTY
== END 2019-09-01 10:04 | disposition home or self-care (01) | DRG 442 ==
LOC: ER 18:15 → ERHOLD 22:26 → 4TH 23:36 → 2ND 08-31 00:56
PROVIDERS: ADMIT Hospitalist; ATTEND Hospitalist
DX: K72.90 Hepatic failure, unspecified without coma (principal); I48.20 Chronic atrial fibrillation, unspecified; I50.32 Chronic diastolic (congestive) heart failure; J44.9 Chronic obstructive pulmonary disease, unspecified; I10 Essential (primary) hypertension; E87.6 Hypokalemia; R94.5 Abnormal results of liver function studies; F17.200 Nicotine dependence, unspecified, uncomplicated; Z72.89 Other problems related to lifestyle; Z79.01 Long term (current) use of anticoagulants; Z11.59 Encounter for screening for other viral diseases; Z86.73 Personal history of transient ischemic attack (TIA), and cerebral infarction without residual deficits
CPT/HCPCS: 36415; 70450; 71045; 71260; 74177; 80048; 80053; 80076; 81003; 81015; 82140; 82947; 83605; 83735; 83880; 84100; 84484; 85025; 85610; 85730; 93005; 93306; 96365; 96366; 99285; J3480; J7030; Q9967; U0002

== ENCOUNTER 2019-09-08 02:32 | Inpatient (IN) | payer OTHER ==
--- OUTSIDE RECORDS SUMMARY | 2019-09-08 02:43 | XMS REPORT | Clinical Summary ---
:1955 Author Organization [facility] Address [address] [place] [address] Care Team Providers Name Role Phone Pcp, [...] hypercapnia (HCC); MD Ammy Simple chronic bronchitis ([facility]); [place] Drake History of alcohol use disorder; MD Leonor Severe protein- calorie malnutrition (HCC); Metabolic alkal osis; Elevated liver function tests 05/30/2019 Telephone Critical Care Petrona Fountain, [id number] Call Medicine 05/08/2019 Hospital Encounter Radiology Manoje, [place] Pleural effusion Nia 05/08/2019 Outside Orders Central Scheduling Manoje, [place] Pleura l effusion Nia (Primary Dx) 04/23/2019 Travel 04/14/2019 Surgery Fernando Andrews THORACOSCOPY MD Bob (VATS),DECORTIC ATION 04/14/2019 Anesthesia Event Elham Holguin MD 04/11/2019 Anesthesia Event Gastroenterology Quiana Chavez, RAILCAR SWITCHMAN 04/11/2019 Surgery Gastroenterology Gabriel Peña UPPER END OSCOPY,PEG MD Kadeem 03/20/2019 Orders Only General Internal Medicine 03/19/2019 Hospital Encounter Cardiology Robb, Hypovolem ic shock (HCC) (Primary Dx); - Britton Acute hypercapn ic respiratory failure (HCC); 04/25/2019 MD Johnnie Cerebrovascular accident (CVA), unspecif ied mechanism ([facility]); Tomer Lora Acute metaboli c encephalopathy; MD Evelyn Longstanding persistent atrial fibrillat ion; Laya Tabares, Moderate pr otein-calorie malnutrition (HCC); Jerald Whitney, Acute on chr onic diastolic CHF (congestive heart failure), NYHA class 4 ([facility]); Atrial fibrillation with RVR ([facility]); Jean Marie Leukocytosis, u nspecified type; Britton Other specified hypotension; MD Irineo Chronic pleural effusion; Areli Hong MD Bilateral pleural effusion; Nalam, Yahaira Acute respirato ry failure with hypoxia and hypercapnia ([facility]); MD Sangita Aspiration pneumonia, unspecified aspira tion pneumonia type, unspecified laterality, unspecified part of lung ([facility]); Bharti Kamara MD Acute on chronic respiratory [...] Documentation Internal Medicine Inna Bailey MD after 09/07/2018 Family History Medical History Relation Name Comments [...] containing 4 or more times a w [place] 01/21/2019 alcohol? How many drinks containing alcohol [...] RHYTHM STRIP - SCAN 05/01/2019 5:29 PM APRON WORKER RHYTHM STRIP - SCAN 04/28/2019 3:01 PM APRON WORKER RHYTHM STRIP - SCAN 04/28/2019 3:01 PM APRON WORKER XR CHEST 1 VIEW Routine 04/25/2019 6:45 Results for PORTABLE/BEDSIDE AM APRON WORKER this proced ure are in the results section. CBC W/PLT COUNT & AUTO Routine 04/25/2019 4:52 R esults for DIFFERENTIAL AM APRON WORKER this procedure are in the results section. PHOSPHORUS Routine 04/25/2019 4:52 Results for AM APRON WORKER this procedure are in the results section. MAGNESIUM Routine 04/25/2019 4:52 Results for AM APRON WORKER this procedure are in the results section. CBC W/PLT COUNT & AUTO Routine 04/25/2019 4:52 R esults for DIFFERENTIAL AM APRON WORKER this procedure are in the results section. BASIC METABOLIC PANEL (7) Routine 04/25/2019 4:52 Results for AM APRON WORKER this procedure are in the results section. XR CHEST 1 VIEW Routine 04/24/2019 6:56 Results for PORTABLE/BEDSIDE AM APRON WORKER this proced ure are in the results section. CBC W/PLT COUNT & AUTO Routine 04/24/2019 4:11 R esults for DIFFERENTIAL AM APRON WORKER this procedure are in the results section. PHOSPHORUS Routine 04/24/2019 4:11 Results for AM APRON WORKER this procedure are in the results section. MAGNESIUM Routine 04/24/2019 4:11 Results for AM APRON WORKER this procedure are in the results section. CBC W/PLT COUNT & AUTO Routine 04/24/2019 4:11 R esults for DIFFERENTIAL AM APRON WORKER this procedure are in the results section. BASIC METABOLIC PANEL (7) Routine 04/24/2019 4:11 Results for AM APRON WORKER this procedure are in the results section. XR CHEST 1 VIEW Routine 04/23/2019 1:57 Results for PORTABLE/BEDSIDE PM APRON WORKER this proced ure are in the results section. XR CHEST 1 VIEW Routine 04/23/2019 6:31 Results for PORTABLE/BEDSIDE AM APRON WORKER this proced ure are in the results section. CBC W/PLT COUNT & AUTO Routine 04/23/2019 3:53 R esults for DIFFERENTIAL AM APRON WORKER this procedure are in the results section. PREALBUMIN Routine 04/23/2019 3:53 Results for AM APRON WORKER this procedure are in the results section. PHOSPHORUS Routine 04/23/2019 3:53 Results for AM APRON WORKER this procedure are in the results section. MAGNESIUM Routine 04/23/2019 3:53 Results for AM APRON WORKER this procedure are in the results section. CBC W/PLT COUNT & AUTO Routine 04/23/2019 3:53 R esults for DIFFERENTIAL AM APRON WORKER this procedure are in the results section. BASIC METABOLIC PANEL (7) Routine 04/23/2019 3:53 Results for AM APRON WORKER this procedure are in the results section. XR ESOPH SWALLOW FUNCTION Routine 04/22/2019 2:30 Results for W/CINE VIDEO PM APRON WORKER this procedure are in the results section. XR CHEST 1 VIEW Routine 04/22/2019 5:49 Results for PORTABLE/BEDSIDE AM APRON WORKER this proced ure are in the results section. PHOSPHORUS Routine 04/22/2019 4:02 Results for AM APRON WORKER this procedure are in the results section. MAGNESIUM Routine 04/22/2019 4:02 Results for AM APRON WORKER this procedure are in the results section. BASIC METABOLIC PANEL (7) Routine 04/22/2019 4:02 Results for AM APRON WORKER this procedure are in the results section. CBC W/PLT COUNT & AUTO Routine 04/22/2019 3:23 R esults for DIFFERENTIAL AM APRON WORKER this procedure are in the results section. CBC W/PLT COUNT & AUTO Routine 04/22/2019 3:23 R esults for DIFFERENTIAL AM APRON WORKER this procedure are in the results section. MAGNESIUM Routine 04/21/2019 12:23 Results for PM APRON WORKER this procedure are in the results section. BASIC METABOLIC PANEL (7) Routine 04/21/2019 12:23 Results for PM APRON WORKER this procedure are in the results section. XR CHEST 1 VIEW Routine 04/21/2019 3:59 Results for PORTABLE/BEDSIDE AM APRON WORKER this proced ure are in the results section. PHOSPHORUS Routine 04/21/2019 3:43 Results for AM APRON WORKER this procedure are in the results section. MAGNESIUM Routine 04/21/2019 3:43 Results for AM APRON WORKER this procedure are in the results section. BASIC METABOLIC PANEL (7) Routine 04/21/2019 3:43 Results for AM APRON WORKER this procedure are in the results section. CBC W/PLT COUNT & AUTO Routine 04/21/2019 3:42 R esults for DIFFERENTIAL AM APRON WORKER this procedure are in the results section. CBC W/PLT COUNT & AUTO Routine 04/21/2019 3:42 R esults for DIFFERENTIAL AM APRON WORKER this procedure are in the results section. CBC W/PLT COUNT & AUTO Routine 04/20/2019 3:19 R esults for DIFFERENTIAL PM APRON WORKER this procedure are in the results section. MAGNESIUM Routine 04/20/2019 3:19 Results for PM APRON WORKER this procedure are in the results section. CBC W/PLT COUNT & AUTO Routine 04/20/2019 3:19 R esults for DIFFERENTIAL PM APRON WORKER this procedure are in the results section. PHOSPHORUS Routine 04/20/2019 3:19 Results for PM APRON WORKER this procedure are in the results section. BASIC METABOLIC PANEL (7) Routine 04/20/2019 3:19 Results for PM APRON WORKER this procedure are in the results section. POCT-GLUCOSE METER Routine 04/20/2019 12:17 Resul ts for PM APRON WORKER this procedure are in the results section. XR CHEST 1 VIEW Routine 04/20/2019 5:50 Results for PORTABLE/BEDSIDE AM APRON WORKER this proced ure are in the results section. CBC W/PLT COUNT & AUTO Routine 04/20/2019 3:21 R esults for DIFFERENTIAL AM APRON WORKER this procedure are in the results section. MAGNESIUM Routine 04/20/2019 3:21 Results for AM APRON WORKER this procedure are in the results section. CBC W/PLT COUNT & AUTO Routine 04/20/2019 3:21 R esults for DIFFERENTIAL AM APRON WORKER this procedure are in the results section. PHOSPHORUS Routine 04/20/2019 3:21 Results for AM APRON WORKER this procedure are in the results section. BASIC METABOLIC PANEL (7) Routine 04/20/2019 3:21 Results for AM APRON WORKER this procedure are in the results section. POCT-GLUCOSE METER Routine 04/20/2019 12:07 Resul ts for AM APRON WORKER this procedure are in the results section. TRANSFUSION SERVICE 04/19/2019 6:02 REPORT - SCAN PM APRON WORKER CBC W/PLT COUNT & AUTO Routine 04/19/2019 5:34 R esults for DIFFERENTIAL PM APRON WORKER this procedure are in the results section. MAGNESIUM Routine 04/19/2019 5:34 Results for PM APRON WORKER this procedure are in the results section. CBC W/PLT COUNT & AUTO Routine 04/19/2019 5:34 R esults for DIFFERENTIAL PM APRON WORKER this procedure are in the results section. PHOSPHORUS Routine 04/19/2019 5:34 Results for PM APRON WORKER this procedure are in the results section. BASIC METABOLIC PANEL (7) Routine 04/19/2019 5:34 Results for PM APRON WORKER this procedure are in the results section. XR CHEST 1 VIEW Routine 04/19/2019 5:48 Results for PORTABLE/BEDSIDE AM APRON WORKER this proced ure are in the results section. CBC W/PLT COUNT & AUTO Routine 04/19/2019 3:26 R esults for DIFFERENTIAL AM APRON WORKER this procedure are in the results section. MAGNESIUM Routine 04/19/2019 3:26 Results for AM APRON WORKER this procedure are in the results section. CBC W/PLT COUNT & AUTO Routine 04/19/2019 3:26 R esults for DIFFERENTIAL AM APRON WORKER this procedure are in the results section. PHOSPHORUS Routine 04/19/2019 3:26 Results for AM APRON WORKER this procedure are in the results section. BASIC METABOLIC PANEL (7) Routine 04/19/2019 3:26 Results for AM APRON WORKER this procedure are in the results section. POCT-GLUCOSE METER Routine 04/19/2019 12:23 Resul ts for AM APRON WORKER this procedure are in the results section. PREPARE LEUKO-REDUCED RBC Routine 04/18/2019 11:54 Results for PM APRON WORKER this procedure are in the results section. POCT-GLUCOSE METER Routine 04/18/2019 6:27 Resul ts for PM APRON WORKER this procedure are in the results section. TRANSFUSION SERVICE 04/18/2019 6:02 REPORT - SCAN PM APRON WORKER CBC W/PLT COUNT & AUTO Routine 04/18/2019 6:02 R esults for DIFFERENTIAL PM APRON WORKER this procedure are in the results section. MAGNESIUM Routine 04/18/2019 6:02 Results for PM APRON WORKER this procedure are in the results section. CBC W/PLT COUNT & AUTO Routine 04/18/2019 6:02 R esults for DIFFERENTIAL PM APRON WORKER this procedure are in the results section. PHOSPHORUS Routine 04/18/2019 6:02 Results for PM APRON WORKER this procedure are in the results section. BASIC METABOLIC PANEL (7) Routine 04/18/2019 6:02 Results for PM APRON WORKER this procedure are in the results section. POCT-GLUCOSE METER Routine 04/18/2019 11:46 Resul ts for AM APRON WORKER this procedure are in the results section. POCT-GLUCOSE METER Routine 04/18/2019 5:54 Resul ts for AM APRON WORKER this procedure are in the results section. XR CHEST 1 VIEW Routine 04/18/2019 5:36 Results for PORTABLE/BEDSIDE AM APRON WORKER this proced ure are in the results section. BLOOD GAS, ARTERIAL Routine 04/18/2019 2:37 Resu lts for AM APRON WORKER this procedure are in the results section. CBC W/PLT COUNT & AUTO Routine 04/18/2019 2:36 R esults for DIFFERENTIAL AM APRON WORKER this procedure are in the results section. MAGNESIUM Routine 04/18/2019 2:36 Results for AM APRON WORKER this procedure are in the results section. CBC W/PLT COUNT & AUTO Routine 04/18/2019 2:36 R esults for DIFFERENTIAL AM APRON WORKER this procedure are in the results section. PHOSPHORUS Routine 04/18/2019 2:36 Results for AM APRON WORKER this procedure are in the results section. BASIC METABOLIC PANEL (7) Routine 04/18/2019 2:36 Results for AM APRON WORKER this procedure are in the results section. POCT-GLUCOSE METER Routine 04/18/2019 12:19 Resul ts for AM APRON WORKER this procedure are in the results section. POCT-GLUCOSE METER Routine 04/17/2019 6:30 Resul ts for PM APRON WORKER this procedure are in the results section. TRANSFUSION SERVICE 04/17/2019 5:52 REPORT - SCAN PM APRON WORKER BLOOD GAS, ARTERIAL Routine 04/17/2019 4:17 Resu lts for PM APRON WORKER this procedure are in the results section. CBC W/PLT COUNT & AUTO Routine 04/17/2019 4:16 R esults for DIFFERENTIAL PM APRON WORKER this procedure are in the results section. MAGNESIUM Routine 04/17/2019 4:16 Results for PM APRON WORKER this procedure are in the results section. CBC W/PLT COUNT & AUTO Routine 04/17/2019 4:16 R esults for DIFFERENTIAL PM APRON WORKER this procedure are in the results section. PHOSPHORUS Routine 04/17/2019 4:16 Results for PM APRON WORKER this procedure are in the results section. BASIC METABOLIC PANEL (7) Routine 04/17/2019 4:16 Results for PM APRON WORKER this procedure are in the results section. POCT-GLUCOSE METER Routine 04/17/2019 1:14 Resul ts for PM APRON WORKER this procedure are in the results section. TRANSFUSE LEUKO-REDUCED Routine 04/17/2019 11:41 RED BLOOD CELLS AM APRON WORKER XR CHEST 1 VIEW Routine 04/17/2019 6:07 Results for PORTABLE/BEDSIDE AM APRON WORKER this proced ure are in the results section. POCT-GLUCOSE METER Routine 04/17/2019 5:32 Resul ts for AM APRON WORKER this procedure are in the results section. CBC W/PLT COUNT & AUTO Routine 04/17/2019 3:30 R esults for DIFFERENTIAL AM APRON WORKER this procedure are in the results section. MAGNESIUM Routine 04/17/2019 3:30 Results for AM APRON WORKER this procedure are in the results section. APTT Routine 04/17/2019 3:30 Results for AM APRON WORKER this procedure are in the results section. PROTHROMBIN TIME/INR Routine 04/17/2019 3:30 Res ults for AM APRON WORKER this procedure are in the results section. CBC W/PLT COUNT & AUTO Routine 04/17/2019 3:30 R esults for DIFFERENTIAL AM APRON WORKER this procedure are in the results section. PHOSPHORUS Routine 04/17/2019 3:30 Results for AM APRON WORKER this procedure are in the results section. BASIC METABOLIC PANEL (7) Routine 04/17/2019 3:30 Results for AM APRON WORKER this procedure are in the results section. BLOOD GAS, ARTERIAL Routine 04/17/2019 3:30 Resu lts for AM APRON WORKER this procedure are in the results section. HEMOGLOBIN AND HEMATOCRIT STAT 04/17/2019 12:27 Results for AM APRON WORKER this procedure are in the results section. POCT-GLUCOSE METER Routine 04/17/2019 12:10 Resul ts for AM APRON WORKER this procedure are in the results section. PREPARE LEUKO-REDUCED RBC STAT 04/16/2019 11:54 Results for PM APRON WORKER this procedure are in the results section. PREPARE LEUKO-REDUCED RBC STAT 04/16/2019 11:54 Results for PM APRON WORKER this procedure are in the results section. PREPARE LEUKO-REDUCED RBC STAT 04/16/2019 11:54 Results for PM APRON WORKER this procedure are in the results section. PREPARE PLASMA STAT 04/16/2019 11:54 Results f or PM APRON WORKER this procedure are in the results section. PREPARE CRYOPRECIPITATE Routine 04/16/2019 11:54 Results for PM APRON WORKER this procedure are in the results section. PREPARE LEUKO-REDUCED RBC Routine 04/16/2019 11:54 Results for PM APRON WORKER this procedure are in the results section. PREPARE LEUKO-REDUCED RBC Routine 04/16/2019 11:54 Results for PM APRON WORKER this procedure are in the results section. PERIPHERAL VASCULAR 04/16/2019 9:23 REPORT - SCAN PM APRON WORKER POCT-GLUCOSE METER Routine 04/16/2019 6:48 Resul ts for PM APRON WORKER this procedure are in the results section. TRANSFUSION SERVICE 04/16/2019 5:52 REPORT - SCAN PM APRON WORKER CBC W/PLT COUNT & AUTO Routine 04/16/2019 4:02 R esults for DIFFERENTIAL PM APRON WORKER this procedure are in the results section. BASIC METABOLIC PANEL (7) Routine 04/16/2019 4:02 Results for PM APRON WORKER this procedure are in the results section. CBC W/PLT COUNT & AUTO Routine 04/16/2019 4:02 R esults for DIFFERENTIAL PM APRON WORKER this procedure are in the results section. PHOSPHORUS Routine 04/16/2019 4:02 Results for PM APRON WORKER this procedure are in the results section. BLOOD GAS, ARTERIAL Routine 04/16/2019 4:02 Resu lts for PM APRON WORKER this procedure are in the results section. POCT-GLUCOSE METER Routine 04/16/2019 1:24 Resul ts for PM APRON WORKER this procedure are in the results section. HEMOGLOBIN AND HEMATOCRIT Routine 04/16/2019 9:09 Results for AM APRON WORKER this procedure are in the results section. XR CHEST 1 VIEW Routine 04/16/2019 3:46 Results for PORTABLE/BEDSIDE AM APRON WORKER this proced ure are in the results section. CBC W/PLT COUNT & AUTO Routine 04/16/2019 3:28 R esults for DIFFERENTIAL AM APRON WORKER this procedure are in the results section. CALCIUM, IONIZED STAT 04/16/2019 3:28 Results for AM APRON WORKER this procedure are in the results section. APTT Routine 04/16/2019 3:28 Results for AM APRON WORKER this procedure are in the results section. PROTHROMBIN TIME/INR Routine 04/16/2019 3:28 Res ults for AM APRON WORKER this procedure are in the results section. CBC W/PLT COUNT & AUTO Routine 04/16/2019 3:28 R esults for DIFFERENTIAL AM APRON WORKER this procedure are in the results section. PHOSPHORUS Routine 04/16/2019 3:28 Results for AM APRON WORKER this procedure are in the results section. BASIC METABOLIC PANEL (7) Routine 04/16/2019 3:28 Results for AM APRON WORKER this procedure are in the results section. MAGNESIUM Routine 04/16/2019 3:28 Results for AM APRON WORKER this procedure are in the results section. BLOOD GAS, ARTERIAL Routine 04/16/2019 3:24 Resu lts for AM APRON WORKER this procedure are in the results section. TRANSFUSE LEUKO-REDUCED Routine 04/16/2019 1:54 RED BLOOD CELLS AM APRON WORKER POCT-GLUCOSE METER Routine 04/15/2019 11:14 Resul ts for PM APRON WORKER this procedure are in the results section. CBC W/PLT COUNT & AUTO Routine 04/15/2019 10:51 R esults for DIFFERENTIAL PM APRON WORKER this procedure are in the results section. CBC W/PLT COUNT & AUTO Routine 04/15/2019 10:51 R esults for DIFFERENTIAL PM APRON WORKER this procedure are in the results section. TRANSFUSE LEUKO-REDUCED Routine 04/15/2019 9:45 RED BLOOD CELLS PM APRON WORKER TRANSFUSION SERVICE 04/15/2019 6:08 REPORT - SCAN PM APRON WORKER US GUIDE, VASCULAR ACCESS Routine 04/15/2019 5:48 Hypovolemic shock Results for PM APRON WORKER (HCC) this procedure are in the results section. INSERT NON-TUNNEL CV CATH Routine 04/15/2019 5:48 Hypovolemic shock Results for PM APRON WORKER (HCC) this procedure are in the results section. BLOOD GAS, ARTERIAL Routine 04/15/2019 4:04 Resu lts for PM APRON WORKER this procedure are in the results section. CBC W/PLT COUNT & AUTO Routine 04/15/2019 4:03 R esults for DIFFERENTIAL PM APRON WORKER this procedure are in the results section. CBC W/PLT COUNT & AUTO Routine 04/15/2019 4:03 R esults for DIFFERENTIAL PM APRON WORKER this procedure are in the results section. PHOSPHORUS Routine 04/15/2019 4:03 Results for PM APRON WORKER this procedure are in the results section. BASIC METABOLIC PANEL (7) Routine 04/15/2019 4:03 Results for PM APRON WORKER this procedure are in the results section. TRANSFUSE LEUKO-REDUCED STAT 04/15/2019 2:21 RED BLOOD CELLS PM APRON WORKER XR CHEST 1 VIEW STAT 04/15/2019 2:01 Results for PORTABLE/BEDSIDE PM APRON WORKER this proced ure are in the results section. VENOUS DOPPLER ARM, LEFT CHRISSIE 04/15/2019 11:30 Results for AM APRON WORKER this procedure are in the results section. THROMBOELASTOGRAPH (TEG) STAT 04/15/2019 11:28 Results for AM APRON WORKER this procedure are in the results section. POCT-GLUCOSE METER Routine 04/15/2019 11:22 Resul ts for AM APRON WORKER this procedure are in the results section. TRANSFUSE PLASMA Routine 04/15/2019 11:03 AM APRON WORKER ECG 12-LEAD Routine 04/15/2019 10:36 AM APRON WORKER Procedure Note - Interface, External Ris In - 04/15/2019 10:41 AM APRON WORKER Ventricular Rate 51 BPM Atrial Rate 51 BPM QRS Duration 118 ms Q-T Interval 492 ms QTC Calculation(Bazett) 453 ms P [place] 63 degrees R [place] 23 degrees T [place] 5 degrees Sinus bradycardia Septal infarct , age undeter mined Abnormal ECG When compared with ECG of 12:19, Septal infarct is now Presen t Nonspecific T wave abnormali ty now evident in Lateral leads ECG 12-LEAD STAT 04/15/2019 10:36 AM Results for this APRON WORKER procedure are i n the results section. ECG 12-LEAD Routine 04/15/2019 10:35 AM Results for this APRON WORKER procedure are i n the results section. TRANSFUSE Routine 04/15/2019 9:22 AM CRYOPRECIPITATE APRON WORKER CBC W/PLT COUNT & AUTO STAT 04/15/2019 8:52 AM Results for this DIFFERENTIAL APRON WORKER procedure are i n the results section. CBC W/PLT COUNT & AUTO STAT 04/15/2019 8:52 AM Results for this DIFFERENTIAL APRON WORKER procedure are i n the results section. TRANSFUSE LEUKO-REDUCED Routine 04/15/2019 7:56 AM RED BLOOD CELLS APRON WORKER TRANSFUSE LEUKO-REDUCED Routine 04/15/2019 6:24 AM RED BLOOD CELLS APRON WORKER XR CHEST 1 VIEW Routine 04/15/2019 4:38 AM Resul ts for this PORTABLE/BEDSIDE APRON WORKER procedure a re in the results section. BLOOD GAS, ARTERIAL Routine 04/15/2019 4:07 AM R esults for this APRON WORKER procedure are i n the results section. CBC W/PLT COUNT & AUTO Routine 04/15/2019 4:05 AM Results for this DIFFERENTIAL APRON WORKER procedure are i n the results section. CBC W/PLT COUNT & AUTO Routine 04/15/2019 4:05 AM Results for this DIFFERENTIAL APRON WORKER procedure are i n the results section. CALCIUM, IONIZED Routine 04/15/2019 4:05 AM Resu lts for this APRON WORKER procedure are i n the results section. LACTIC ACID, ARTERIAL Routine 04/15/2019 4:05 AM Results for this APRON WORKER procedure are i n the results section. PHOSPHORUS Routine 04/15/2019 4:05 AM Results for this APRON WORKER procedure are i n the results section. BASIC METABOLIC PANEL Routine 04/15/2019 4:05 AM Results for this (7) APRON WORKER procedure are i n the results section. MAGNESIUM Routine 04/15/2019 4:05 AM Results for this APRON WORKER procedure are i n the results section. TRANSFUSE LEUKO-REDUCED Routine 04/15/2019 3:39 AM RED BLOOD CELLS APRON WORKER TRANSFUSE LEUKO-REDUCED Routine 04/15/2019 2:17 AM RED BLOOD CELLS APRON WORKER FIBRINOGEN Routine 04/15/2019 1:58 AM Results for this APRON WORKER procedure are i n the results section. PT/APTT STAT 04/15/2019 1:58 AM Results for this APRON WORKER procedure are i n the results section. APTT Routine 04/15/2019 1:58 AM Results for this APRON WORKER procedure are i n the results section. PROTHROMBIN TIME/INR Routine 04/15/2019 1:58 AM Results for this APRON WORKER procedure are i n the results section. POCT-GLUCOSE METER Routine 04/15/2019 12:23 AM Re sults for this APRON WORKER procedure are i n the results section. CBC W/PLT COUNT & AUTO Routine 04/15/2019 12:07 AM Results for this DIFFERENTIAL APRON WORKER procedure are i n the results section. CBC W/PLT COUNT & AUTO Routine 04/15/2019 12:07 AM Results for this DIFFERENTIAL APRON WORKER procedure are i n the results section. CORTISOL Routine 04/15/2019 12:07 AM Results for this APRON WORKER procedure are i n the results section. XR CHEST 1 VIEW STAT 04/14/2019 8:32 PM Resul ts for this PORTABLE/BEDSIDE APRON WORKER procedure a re in the results section. BLOOD GAS, ARTERIAL STAT 04/14/2019 8:00 PM R esults for this APRON WORKER procedure are i n the results section. CALCIUM, IONIZED Routine 04/14/2019 7:57 PM Resu lts for this APRON WORKER procedure are i n the results section. PHOSPHORUS Routine 04/14/2019 7:57 PM Results for this APRON WORKER procedure are i n the results section. MAGNESIUM Routine 04/14/2019 7:57 PM Results for this APRON WORKER procedure are i n the results section. AFB CULTURE + SMEAR Routine 04/14/2019 6:48 PM R esults for this (NON-SPUTUM) APRON WORKER procedure are i n the results section. FUNGUS CULTURE + SMEAR Routine 04/14/2019 6:48 PM Results for this APRON WORKER procedure are i n the results section. SPIN/CONCENTRATION Routine 04/14/2019 6:48 PM Re sults for this CHARGE APRON WORKER procedure are i n the results section. BRONCHIAL CULTURE + GRAM Routine 04/14/2019 6:48 PM Results for this STAIN APRON WORKER procedure are i n the results section. HGB/HCT (H&H) - STAT LAB STAT 04/14/2019 5:49 PM Results for this APRON WORKER procedure are i n the results section. GLUCOSE-STAT LAB STAT 04/14/2019 5:49 PM Resu lts for this APRON WORKER procedure are i n the results section. POTASSIUM-STAT LAB STAT 04/14/2019 5:49 PM Re sults for this APRON WORKER procedure are i n the results section. SODIUM NA-STAT LAB STAT 04/14/2019 5:49 PM Re sults for this APRON WORKER procedure are i n the results section. BLOOD GAS, ARTERIAL STAT 04/14/2019 5:49 PM R esults for this APRON WORKER procedure are i n the results section. CALCIUM, IONIZED STAT 04/14/2019 5:49 PM Resu lts for this APRON WORKER procedure are i n the results section. RRL CRITICAL LABS STAT 04/14/2019 5:49 PM Res ults for this (ABG,NA,K,H&H,GLUCOSE) APRON WORKER proce dure are in the results section. SURGICALLY OBTAINED Routine 04/14/2019 5:15 PM R esults for this CULTURE + GRAM STAIN APRON WORKER procedu re are in the results section. FUNGUS CULTURE + SMEAR Routine 04/14/2019 5:15 PM Results for this APRON WORKER procedure are i n the results section. ANAEROBIC CULTURE Routine 04/14/2019 5:15 PM Res ults for this APRON WORKER procedure are i n the results section. AFB CULTURE + SMEAR Routine 04/14/2019 5:15 PM R esults for this (NON-SPUTUM) APRON WORKER procedure are i n the results section. SURGICALLY OBTAINED Routine 04/14/2019 5:10 PM R esults for this CULTURE + GRAM STAIN APRON WORKER procedu re are in the results section. FUNGUS CULTURE + SMEAR Routine 04/14/2019 5:10 PM Results for this APRON WORKER procedure are i n the results section. ANAEROBIC CULTURE Routine 04/14/2019 5:10 PM Res ults for this APRON WORKER procedure are i n the results section. AFB CULTURE + SMEAR Routine 04/14/2019 5:10 PM R esults for this (NON-SPUTUM) APRON WORKER procedure are i n the results section. FUNGUS CULTURE + SMEAR Routine 04/14/2019 5:08 PM Results for this APRON WORKER procedure are i n the results section. SURGICALLY OBTAINED Routine 04/14/2019 5:08 PM R esults for this CULTURE + GRAM STAIN APRON WORKER procedu re are in the results section. ANAEROBIC CULTURE Routine 04/14/2019 5:08 PM Res ults for this APRON WORKER procedure are i n the results section. AFB CULTURE + SMEAR Routine 04/14/2019 5:08 PM R esults for this (NON-SPUTUM) APRON WORKER procedure are i n the results section. SURGICALLY OBTAINED Routine 04/14/2019 5:00 PM R esults for this CULTURE + GRAM STAIN APRON WORKER procedu re are in the results section. FUNGUS CULTURE + SMEAR Routine 04/14/2019 5:00 PM Results for this APRON WORKER procedure are i n the results section. ANAEROBIC CULTURE Routine 04/14/2019 5:00 PM Res ults for this APRON WORKER procedure are i n the results section. AFB CULTURE + SMEAR Routine 04/14/2019 5:00 PM R esults for this (NON-SPUTUM) APRON WORKER procedure are i n the results section. TISSUE EXAM AP Routine 04/14/2019 4:54 PM Results for this APRON WORKER procedure are i n the results section. HGB/HCT (H&H) - STAT LAB STAT 04/14/2019 4:30 PM Results for this APRON WORKER procedure are i n the results section. GLUCOSE-STAT LAB STAT 04/14/2019 4:30 PM Resu lts for this APRON WORKER procedure are i n the results section. POTASSIUM-STAT LAB STAT 04/14/2019 4:30 PM Re sults for this APRON WORKER procedure are i n the results section. SODIUM NA-STAT LAB STAT 04/14/2019 4:30 PM Re sults for this APRON WORKER procedure are i n the results section. BLOOD GAS, ARTERIAL STAT 04/14/2019 4:30 PM R esults for this APRON WORKER procedure are i n the results section. CALCIUM, IONIZED STAT 04/14/2019 4:30 PM Resu lts for this APRON WORKER procedure are i n the results section. RRL CRITICAL LABS STAT 04/14/2019 4:30 PM Res ults for this (ABG,NA,K,H&H,GLUCOSE) APRON WORKER proce dure are in the results section. CYTOLOGY AP Routine 04/14/2019 3:48 PM Results for this APRON WORKER procedure are i n the results section. ANAEROBIC CULTURE Routine 04/14/2019 3:41 PM Res ults for this APRON WORKER procedure are i n the results section. FUNGUS CULTURE + SMEAR Routine 04/14/2019 3:41 PM Results for this APRON WORKER procedure are i n the results section. AFB CULTURE + SMEAR Routine 04/14/2019 3:41 PM R esults for this (NON-SPUTUM) APRON WORKER procedure are i n the results section. SURGICALLY OBTAINED Routine 04/14/2019 3:41 PM R esults for this CULTURE + GRAM STAIN APRON WORKER procedu re are in the results section. HGB/HCT (H&H) - STAT LAB STAT 04/14/2019 3:24 PM Results for this APRON WORKER procedure are i n the results section. GLUCOSE-STAT LAB STAT 04/14/2019 3:24 PM Resu lts for this APRON WORKER procedure are i n the results section. POTASSIUM-STAT LAB STAT 04/14/2019 3:24 PM Re sults for this APRON WORKER procedure are i n the results section. SODIUM NA-STAT LAB STAT 04/14/2019 3:24 PM Re sults for this APRON WORKER procedure are i n the results section. BLOOD GAS, ARTERIAL STAT 04/14/2019 3:24 PM R esults for this APRON WORKER procedure are i n the results section. CALCIUM, IONIZED STAT 04/14/2019 3:24 PM Resu lts for this APRON WORKER procedure are i n the results section. RRL CRITICAL LABS STAT 04/14/2019 3:24 PM Res ults for this (ABG,NA,K,H&H,GLUCOSE) APRON WORKER proce dure are in the results section. BRONCHOSCOPY 04/14/2019 1:25 PM Empyema, right APRON WORKER (HCC) THORACOSCOPY 04/14/2019 1:25 PM Empyema, right (VATS),DECORTICATION APRON WORKER (HCC) ECG 12-LEAD Routine 04/14/2019 12:19 PM APRON WORKER Procedure Note - Interface, External Ris In - 04/14/2019 12:20 PM APRON WORKER Ventricular Rate 45 BPM Atrial Rate 45 BPM P-R Interval 178 ms QRS Duration 118 ms Q-T Interval 542 ms QTC Calculation(Bazett) 468 ms P [place] 67 degrees R [place] 20 degrees T [place] -1 degrees Sinus bradycardia Left ventricular hypertrophy [...] STAT 04/14/2019 12:19 Results for this PM APRON WORKER procedure are i n the results section. XR CHEST 1 VIEW Routine 04/14/2019 10:05 Results for this PORTABLE/BEDSIDE AM APRON WORKER procedure a re in the results section. CBC W/PLT COUNT & AUTO Routine 04/14/2019 1:01 R esults for this DIFFERENTIAL AM APRON WORKER procedure are i n the results section. TYPE AND SCREEN, Routine 04/14/2019 1:01 Results for this AUTOMATED AM APRON WORKER procedure are i n the results section. COMPREHENSIVE Add-On 04/14/2019 1:01 Results fo r this METABOLIC PANEL AM APRON WORKER procedure ar e in the results section. PROTHROMBIN TIME/INR Routine 04/14/2019 1:01 Res ults for this AM APRON WORKER procedure are i n the results section. BASIC METABOLIC PANEL Routine 04/14/2019 1:01 Re sults for this (7) AM APRON WORKER procedure are i n the results section. PHOSPHORUS Routine 04/14/2019 1:01 Results for this AM APRON WORKER procedure are i n the results section. MAGNESIUM Routine 04/14/2019 1:01 Results for this AM APRON WORKER procedure are i n the results section. CBC W/PLT COUNT & AUTO Routine 04/14/2019 1:01 R esults for this DIFFERENTIAL AM APRON WORKER procedure are i n the results section. POCT-GLUCOSE METER Routine 04/13/2019 7:57 Resul ts for this PM APRON WORKER procedure are i n the results section. POCT-GLUCOSE METER Routine 04/13/2019 5:17 Resul ts for this PM APRON WORKER procedure are i n the results section. POCT-GLUCOSE METER Routine 04/13/2019 11:52 Resul ts for this AM APRON WORKER procedure are i n the results section. XR CHEST 1 VIEW Routine 04/13/2019 8:26 Results for this PORTABLE/BEDSIDE AM APRON WORKER procedure a re in the results section. POCT-GLUCOSE METER Routine 04/13/2019 5:58 Resul ts for this AM APRON WORKER procedure are i n the results section. CBC W/PLT COUNT & AUTO Routine 04/13/2019 4:50 R esults for this DIFFERENTIAL AM APRON WORKER procedure are i n the results section. CBC W/PLT COUNT & AUTO Routine 04/13/2019 4:50 R esults for this DIFFERENTIAL AM APRON WORKER procedure are i n the results section. HEPATIC FUNCTION PANEL Routine 04/13/2019 4:39 R esults for this AM APRON WORKER procedure are i n the results section. BASIC METABOLIC PANEL Routine 04/13/2019 4:39 Re sults for this (7) AM APRON WORKER procedure are i n the results section. PHOSPHORUS Routine 04/13/2019 4:39 Results for this AM APRON WORKER procedure are i n the results section. MAGNESIUM Routine 04/13/2019 4:39 Results for this AM APRON WORKER procedure are i n the results section. APTT Routine 04/13/2019 4:29 Results for this AM APRON WORKER procedure are i n the results section. POCT-GLUCOSE METER Routine 04/12/2019 5:20 Resul ts for this PM APRON WORKER procedure are i n the results section. POCT-GLUCOSE METER Routine 04/12/2019 12:05 Resul ts for this PM APRON WORKER procedure are i n the results section. XR CHEST 1 VIEW Routine 04/12/2019 6:43 Results for this PORTABLE/BEDSIDE AM APRON WORKER procedure a re in the results section. POCT-GLUCOSE METER Routine 04/12/2019 5:21 Resul ts for this AM APRON WORKER procedure are i n the results section. CBC W/PLT COUNT & AUTO Routine 04/12/2019 5:17 R esults for this DIFFERENTIAL AM APRON WORKER procedure are i n the results section. BASIC METABOLIC PANEL Routine 04/12/2019 5:17 Re sults for this (7) AM APRON WORKER procedure are i n the results section. PHOSPHORUS Routine 04/12/2019 5:17 Results for this AM APRON WORKER procedure are i n the results section. MAGNESIUM Routine 04/12/2019 5:17 Results for this AM APRON WORKER procedure are i n the results section. CBC W/PLT COUNT & AUTO Routine 04/12/2019 5:17 R esults for this DIFFERENTIAL AM APRON WORKER procedure are i n the results section. POCT-GLUCOSE METER Routine 04/12/2019 12:04 Resul ts for this AM APRON WORKER procedure are i n the results section. POCT-GLUCOSE METER Routine 04/11/2019 5:35 Resul ts for this PM APRON WORKER procedure are i n the results section. XR CHEST 1 VIEW Routine 04/11/2019 1:04 Results for this PORTABLE/BEDSIDE PM APRON WORKER procedure a re in the results section. POCT-GLUCOSE METER Routine 04/11/2019 12:09 Resul ts for this PM APRON WORKER procedure are i n the results section. POCT-GLUCOSE METER Routine 04/11/2019 10:39 Resul ts for this AM APRON WORKER procedure are i n the results section. REPORT OF PROCEDURE - 04/11/2019 10:15 ENDOSCOPY URL AM APRON WORKER UPPER ENDOSCOPY,PEG 04/11/2019 9:00 Dysphagia, AM APRON WORKER unspecified type POCT-GLUCOSE METER Routine 04/11/2019 7:01 Resul ts for this AM APRON WORKER procedure are i n the results section. CBC W/PLT COUNT & AUTO Routine 04/11/2019 5:28 R esults for this DIFFERENTIAL AM APRON WORKER procedure are i n the results section. PROTHROMBIN TIME/INR Routine 04/11/2019 5:28 Res ults for this AM APRON WORKER procedure are i n the results section. BASIC METABOLIC PANEL Routine 04/11/2019 5:28 Re sults for this (7) AM APRON WORKER procedure are i n the results section. PHOSPHORUS Routine 04/11/2019 5:28 Results for this AM APRON WORKER procedure are i n the results section. MAGNESIUM Routine 04/11/2019 5:28 Results for this AM APRON WORKER procedure are i n the results section. CBC W/PLT COUNT & AUTO Routine 04/11/2019 5:28 R esults for this DIFFERENTIAL AM APRON WORKER procedure are i n the results section. POCT-GLUCOSE METER Routine 04/11/2019 12:16 Resul ts for this AM APRON WORKER procedure are i n the results section. POCT-GLUCOSE METER Routine 04/10/2019 2:51 Resul ts for this PM APRON WORKER procedure are i n the results section. XR CHEST 1 VIEW Routine 04/10/2019 9:16 Results for this PORTABLE/BEDSIDE AM APRON WORKER procedure a re in the results section. CBC W/PLT COUNT & AUTO Routine 04/10/2019 4:41 R esults for this DIFFERENTIAL AM APRON WORKER procedure are i n the results section. BASIC METABOLIC PANEL Routine 04/10/2019 4:41 Re sults for this (7) AM APRON WORKER procedure are i n the results section. PHOSPHORUS Routine 04/10/2019 4:41 Results for this AM APRON WORKER procedure are i n the results section. MAGNESIUM Routine 04/10/2019 4:41 Results for this AM APRON WORKER procedure are i n the results section. CBC W/PLT COUNT & AUTO Routine 04/10/2019 4:41 R esults for this DIFFERENTIAL AM APRON WORKER procedure are i n the results section. POCT-GLUCOSE METER Routine 04/10/2019 12:37 Resul ts for this AM APRON WORKER procedure are i n the results section. POCT-GLUCOSE METER Routine 04/09/2019 5:19 Resul ts for this PM APRON WORKER procedure are i n the results section. XR ESOPH SWALLOW Routine 04/09/2019 1:56 Results for this FUNCTION W/CINE VIDEO PM APRON WORKER proced ure are in the results section. BODY FLUID CULTURE + CHRISSIE 04/09/2019 12:10 Res ults for this GRAM STAIN PM APRON WORKER procedure are i n the results section. POCT-GLUCOSE METER Routine 04/09/2019 11:47 Resul ts for this AM APRON WORKER procedure are i n the results section. POCT-GLUCOSE METER Routine 04/09/2019 9:21 Resul ts for this AM APRON WORKER procedure are i n the results section. XR CHEST 1 VIEW Routine 04/09/2019 6:51 Results for this PORTABLE/BEDSIDE AM APRON WORKER procedure a re in the results section. POCT-GLUCOSE METER Routine 04/09/2019 6:16 Resul ts for this AM APRON WORKER procedure are i n the results section. CBC W/PLT COUNT & AUTO Routine 04/09/2019 5:32 R esults for this DIFFERENTIAL AM APRON WORKER procedure are i n the results section. BASIC METABOLIC PANEL Routine 04/09/2019 5:32 Re sults for this (7) AM APRON WORKER procedure are i n the results section. PHOSPHORUS Routine 04/09/2019 5:32 Results for this AM APRON WORKER procedure are i n the results section. MAGNESIUM Routine 04/09/2019 5:32 Results for this AM APRON WORKER procedure are i n the results section. CBC W/PLT COUNT & AUTO Routine 04/09/2019 5:32 R esults for this DIFFERENTIAL AM APRON WORKER procedure are i n the results section. POCT-GLUCOSE METER Routine 04/09/2019 1:56 Resul ts for this AM APRON WORKER procedure are i n the results section. POCT-GLUCOSE METER Routine 04/08/2019 5:45 Resul ts for this PM APRON WORKER procedure are i n the results section. POCT-GLUCOSE METER Routine 04/08/2019 12:36 Resul ts for this PM APRON WORKER procedure are i n the results section. XR CHEST 1 VIEW Routine 04/08/2019 6:25 Results for this PORTABLE/BEDSIDE AM APRON WORKER procedure a re in the results section. POCT-GLUCOSE METER Routine 04/08/2019 5:17 Resul ts for this AM APRON WORKER procedure are i n the results section. CBC W/PLT COUNT & AUTO Routine 04/08/2019 4:12 R esults for this DIFFERENTIAL AM APRON WORKER procedure are i n the results section. BASIC METABOLIC PANEL Routine 04/08/2019 4:12 Re sults for this (7) AM APRON WORKER procedure are i n the results section. PHOSPHORUS Routine 04/08/2019 4:12 Results for this AM APRON WORKER procedure are i n the results section. MAGNESIUM Routine 04/08/2019 4:12 Results for this AM APRON WORKER procedure are i n the results section. CBC W/PLT COUNT & AUTO Routine 04/08/2019 4:12 R esults for this DIFFERENTIAL AM APRON WORKER procedure are i n the results section. POCT-GLUCOSE METER Routine 04/08/2019 12:22 Resul ts for this AM APRON WORKER procedure are i n the results section. BASIC METABOLIC PANEL Routine 04/07/2019 6:08 Re sults for this (7) PM APRON WORKER procedure are i n the results section. POCT-GLUCOSE METER Routine 04/07/2019 5:36 Resul ts for this PM APRON WORKER procedure are i n the results section. POCT-GLUCOSE METER Routine 04/07/2019 11:35 Resul ts for this AM APRON WORKER procedure are i n the results section. XR CHEST 1 VIEW STAT 04/07/2019 11:21 Results for this PORTABLE/BEDSIDE AM APRON WORKER procedure a re in the results section. XR CHEST 1 VIEW Routine 04/07/2019 9:52 Results for this PORTABLE/BEDSIDE AM APRON WORKER procedure a re in the results section. POCT-GLUCOSE METER Routine 04/07/2019 6:38 Resul ts for this AM APRON WORKER procedure are i n the results section. CBC W/PLT COUNT & AUTO Routine 04/07/2019 6:07 R esults for this DIFFERENTIAL AM APRON WORKER procedure are i n the results section. BASIC METABOLIC PANEL Routine 04/07/2019 6:07 Re sults for this (7) AM APRON WORKER procedure are i n the results section. PHOSPHORUS Routine 04/07/2019 6:07 Results for this AM APRON WORKER procedure are i n the results section. MAGNESIUM Routine 04/07/2019 6:07 Results for this AM APRON WORKER procedure are i n the results section. CBC W/PLT COUNT & AUTO Routine 04/07/2019 6:07 R esults for this DIFFERENTIAL AM APRON WORKER procedure are i n the results section. POCT-GLUCOSE METER Routine 04/06/2019 11:48 Resul ts for this PM APRON WORKER procedure are i n the results section. POCT-GLUCOSE METER Routine 04/06/2019 5:17 Resul ts for this PM APRON WORKER procedure are i n the results section. BASIC METABOLIC PANEL Routine 04/06/2019 4:40 Re sults for this (7) PM APRON WORKER procedure are i n the results section. POCT-GLUCOSE METER Routine 04/06/2019 12:37 Resul ts for this PM APRON WORKER procedure are i n the results section. XR CHEST 1 VIEW Routine 04/06/2019 6:49 Results for this PORTABLE/BEDSIDE AM APRON WORKER procedure a re in the results section. CBC W/PLT COUNT & AUTO Routine 04/06/2019 6:33 R esults for this DIFFERENTIAL AM APRON WORKER procedure are i n the results section. BASIC METABOLIC PANEL Routine 04/06/2019 6:33 Re sults for this (7) AM APRON WORKER procedure are i n the results section. PHOSPHORUS Routine 04/06/2019 6:33 Results for this AM APRON WORKER procedure are i n the results section. MAGNESIUM Routine 04/06/2019 6:33 Results for this AM APRON WORKER procedure are i n the results section. CBC W/PLT COUNT & AUTO Routine 04/06/2019 6:33 R esults for this DIFFERENTIAL AM APRON WORKER procedure are i n the results section. POCT-GLUCOSE METER Routine 04/06/2019 5:15 Resul ts for this AM APRON WORKER procedure are i n the results section. BASIC METABOLIC PANEL Routine 04/05/2019 4:43 Re sults for this (7) PM APRON WORKER procedure are i n the results section. POCT-GLUCOSE METER Routine 04/05/2019 11:21 Resul ts for this AM APRON WORKER procedure are i n the results section. CBC W/PLT COUNT & AUTO Routine 04/05/2019 4:50 R esults for this DIFFERENTIAL AM APRON WORKER procedure are i n the results section. BASIC METABOLIC PANEL Routine 04/05/2019 4:50 Re sults for this (7) AM APRON WORKER procedure are i n the results section. PHOSPHORUS Routine 04/05/2019 4:50 Results for this AM APRON WORKER procedure are i n the results section. MAGNESIUM Routine 04/05/2019 4:50 Results for this AM APRON WORKER procedure are i n the results section. CBC W/PLT COUNT & AUTO Routine 04/05/2019 4:50 R esults for this DIFFERENTIAL AM APRON WORKER procedure are i n the results section. XR CHEST 1 VIEW Routine 04/05/2019 1:58 Results for this PORTABLE/BEDSIDE AM APRON WORKER procedure a re in the results section. POCT-GLUCOSE METER Routine 04/04/2019 11:42 Resul ts for this PM APRON WORKER procedure are i n the results section. POCT-GLUCOSE METER Routine 04/04/2019 5:43 Resul ts for this PM APRON WORKER procedure are i n the results section. BASIC METABOLIC PANEL Routine 04/04/2019 4:28 Re sults for this (7) PM APRON WORKER procedure are i n the results section. XR ABDOMEN / KUB 1 STAT 04/04/2019 3:58 Resul ts for this VIEW PM APRON WORKER procedure are i n the results section. XR ABDOMEN / KUB 1 STAT 04/04/2019 3:39 Resul ts for this VIEW PM APRON WORKER procedure are i n the results section. POCT-GLUCOSE METER Routine 04/04/2019 12:09 Resul ts for this PM APRON WORKER procedure are i n the results section. XR CHEST 1 VIEW STAT 04/04/2019 8:30 Results for this PORTABLE/BEDSIDE AM APRON WORKER procedure a re in the results section. POCT-GLUCOSE METER Routine 04/04/2019 5:29 Resul ts for this AM APRON WORKER procedure are i n the results section. CBC W/PLT COUNT & AUTO Routine 04/04/2019 4:42 R esults for this DIFFERENTIAL AM APRON WORKER procedure are i n the results section. BASIC METABOLIC PANEL Routine 04/04/2019 4:42 Re sults for this (7) AM APRON WORKER procedure are i n the results section. PHOSPHORUS Routine 04/04/2019 4:42 Results for this AM APRON WORKER procedure are i n the results section. MAGNESIUM Routine 04/04/2019 4:42 Results for this AM APRON WORKER procedure are i n the results section. CBC W/PLT COUNT & AUTO Routine 04/04/2019 4:42 R esults for this DIFFERENTIAL AM APRON WORKER procedure are i n the results section. POCT-GLUCOSE METER Routine 04/03/2019 11:54 Resul ts for this PM APRON WORKER procedure are i n the results section. POCT-GLUCOSE METER Routine 04/03/2019 5:02 Resul ts for this PM APRON WORKER procedure are i n the results section. MAGNESIUM Add-On 04/03/2019 3:27 Results for this PM APRON WORKER procedure are i n the results section. BASIC METABOLIC PANEL Routine 04/03/2019 3:27 Re sults for this (7) PM APRON WORKER procedure are i n the results section. POCT-GLUCOSE METER Routine 04/03/2019 12:07 Resul ts for this PM APRON WORKER procedure are i n the results section. POCT-GLUCOSE METER Routine 04/03/2019 5:53 Resul ts for this AM APRON WORKER procedure are i n the results section. XR CHEST 1 VIEW CHRISSIE 04/03/2019 5:14 Results for this PORTABLE/BEDSIDE AM APRON WORKER procedure a re in the results section. CBC W/PLT COUNT & AUTO Routine 04/03/2019 2:13 R esults for this DIFFERENTIAL AM APRON WORKER procedure are i n the results section. BASIC METABOLIC PANEL Routine 04/03/2019 2:13 Re sults for this (7) AM APRON WORKER procedure are i n the results section. PHOSPHORUS Routine 04/03/2019 2:13 Results for this AM APRON WORKER procedure are i n the results section. MAGNESIUM Routine 04/03/2019 2:13 Results for this AM APRON WORKER procedure are i n the results section. CBC W/PLT COUNT & AUTO Routine 04/03/2019 2:13 R esults for this DIFFERENTIAL AM APRON WORKER procedure are i n the results section. POCT-GLUCOSE METER Routine 04/02/2019 11:54 Resul ts for this PM APRON WORKER procedure are i n the results section. APTT Routine 04/02/2019 10:44 Results for this PM APRON WORKER procedure are i n the results section. POCT-GLUCOSE METER Routine 04/02/2019 5:26 Resul ts for this PM APRON WORKER procedure are i n the results section. APTT Routine 04/02/2019 4:42 Results for this PM APRON WORKER procedure are i n the results section. BASIC METABOLIC PANEL Routine 04/02/2019 4:42 Re sults for this (7) PM APRON WORKER procedure are i n the results section. POCT-GLUCOSE METER Routine 04/02/2019 12:20 Resul ts for this PM APRON WORKER procedure are i n the results section. APTT Routine 04/02/2019 8:12 Results for this AM APRON WORKER procedure are i n the results section. XR CHEST 1 VIEW Routine 04/02/2019 6:02 Results for this PORTABLE/BEDSIDE AM APRON WORKER procedure a re in the results section. POCT-GLUCOSE METER Routine 04/02/2019 5:34 Resul ts for this AM APRON WORKER procedure are i n the results section. APTT Routine 04/02/2019 1:20 Results for this AM APRON WORKER procedure are i n the results section. BLOOD GAS, ARTERIAL Routine 04/02/2019 1:19 Resu lts for this AM APRON WORKER procedure are i n the results section. CBC W/PLT COUNT & AUTO Routine 04/02/2019 1:18 R esults for this DIFFERENTIAL AM APRON WORKER procedure are i n the results section. BASIC METABOLIC PANEL Routine 04/02/2019 1:18 Re sults for this (7) AM APRON WORKER procedure are i n the results section. PHOSPHORUS Routine 04/02/2019 1:18 Results for this AM APRON WORKER procedure are i n the results section. MAGNESIUM Routine 04/02/2019 1:18 Results for this AM APRON WORKER procedure are i n the results section. CBC W/PLT COUNT & AUTO Routine 04/02/2019 1:18 R esults for this DIFFERENTIAL AM APRON WORKER procedure are i n the results section. POCT-GLUCOSE METER Routine 04/01/2019 11:48 Resul ts for this PM APRON WORKER procedure are i n the results section. BASIC METABOLIC PANEL Routine 04/01/2019 7:06 Re sults for this (7) PM APRON WORKER procedure are i n the results section. APTT Routine 04/01/2019 6:47 Results for this PM APRON WORKER procedure are i n the results section. POCT-GLUCOSE METER Routine 04/01/2019 5:51 Resul ts for this PM APRON WORKER procedure are i n the results section. POCT-GLUCOSE METER Routine 04/01/2019 11:41 Resul ts for this AM APRON WORKER procedure are i n the results section. APTT Routine 04/01/2019 11:07 Results for this AM APRON WORKER procedure are i n the results section. POCT-GLUCOSE METER Routine 04/01/2019 6:26 Resul ts for this AM [employer]ON WORK[employer] procedure are i n the results section. XR CHEST 1 VIEW Routine 04/01/2019 5:07 Results for this PORTABLE/BEDSIDE AM [employer]ON WORKER procedure a re in the results section. BLOOD GAS, ARTERIAL Routine 04/01/2019 3:25 Resu lts for this AM [employer] WORK[employer] procedure are i n the results section. CBC W/PLT COUNT & AUTO Routine 04/01/2019 3:23 R esults for this DIFFERENTIAL AM [employer] WORK[employer] procedure are i n the results section. APTT Routine 04/01/2019 3:23 Results for this AM [employer] WORK[employer] procedure are i n the results section. BASIC METABOLIC PANEL Routine 04/01/2019 3:23 Re sults for this (7) AM [employer] WORK[employer] procedure are i n the results section. PHOSPHORUS Routine 04/01/2019 3:23 Results for this AM [employer] WORK[employer] procedure are i n the results section. MAGNESIUM Routine 04/01/2019 3:23 Results for this AM [employer] WORK[employer] procedure are i n the results section. CBC W/PLT COUNT & AUTO Routine 04/01/2019 3:23 R esults for this DIFFERENTIAL AM [employer] WORK[employer] procedure are i n the results section. POCT-GLUCOSE METER Routine 03/31/2019 11:51 Resul ts for this PM [employer] WORK[employer] procedure are i n the results section. APTT Routine 03/31/2019 10:13 Results for this PM [employer] WORK[employer] procedure are i n the results section. APTT Routine 03/31/2019 7:52 Results for this PM [employer] WORK[employer] procedure are i n the results section. POCT-GLUCOSE METER Routine 03/31/2019 6:08 Resul ts for this PM [employer] WORK[employer] procedure are i n the results section. APTT Routine 03/31/2019 1:59 Results for this PM [employer] WORK[employer] procedure are i n the results section. BASIC METABOLIC PANEL Routine 03/31/2019 1:59 Re sults for this (7) PM [employer] WORK[employer] procedure are i n the results section. LACTIC ACID, VENOUS Routine 03/31/2019 1:59 Resu lts for this PM [employer] WORK[employer] procedure are i n the results section. PHOSPHORUS STAT 03/31/2019 1:59 Results for this PM [employer] WORK[employer] procedure are i n the results section. MAGNESIUM STAT 03/31/2019 1:59 Results for this PM [employer] WORK[employer] procedure are i n the results section. PT/APTT STAT 03/31/2019 1:59 Results for this PM [employer] WORK[employer] procedure are i n the results section. COMPREHENSIVE STAT 03/31/2019 1:59 Results fo r this METABOLIC PANEL PM [employer] WORK[employer] procedure ar e in the results section. TROPONIN I STAT 03/31/2019 1:59 Results for this PM [employer] WORK[employer] procedure are i n the results section. POCT-GLUCOSE METER Routine 03/31/2019 11:50 Resul ts for this AM [employer] WORK[employer] procedure are i n the results section. XR ABDOMEN / KUB 1 STAT 03/31/2019 11:33 Resul ts for this VIEW AM [employer] WORK[employer] procedure are i n the results section. TROPONIN I Routine 03/31/2019 9:12 Results for this AM [employer] WORK[employer] procedure are i n the results section. APTT Routine 03/31/2019 6:42 Results for this AM [employer] WORK[employer] procedure are i n the results section. BLOOD GAS, ARTERIAL Routine 03/31/2019 6:42 Resu lts for this AM [employer] WORK[employer] procedure are i n the results section. POCT-GLUCOSE METER Routine 03/31/2019 5:40 Resul ts for this AM [employer] WORK[employer] procedure are i n the results section. XR CHEST 1 VIEW Routine 03/31/2019 5:29 Results for this PORTABLE/BEDSIDE AM [employer] WORK[employer] procedure a re in the results section. APTT Routine 03/31/2019 4:20 Results for this AM [employer] WORK[employer] procedure are i n the results section. BLOOD GAS, ARTERIAL Routine 03/31/2019 3:52 Resu lts for this AM [employer] WORK[employer] procedure are i n the results section. CBC W/PLT COUNT & AUTO Routine 03/31/2019 3:51 R esults for this DIFFERENTIAL AM [employer] WORK[employer] procedure are i n the results section. BASIC METABOLIC PANEL Routine 03/31/2019 3:51 Re sults for this (7) AM [employer] WORK[employer] procedure are i n the results section. PHOSPHORUS Routine 03/31/2019 3:51 Results for this AM [employer] WORK[employer] procedure are i n the results section. MAGNESIUM Routine 03/31/2019 3:51 Results for this AM [employer] WORK[employer] procedure are i n the results section. CBC W/PLT COUNT & AUTO Routine 03/31/2019 3:51 R esults for this DIFFERENTIAL AM [employer] WORK[employer] procedure are i n the results section. LACTIC ACID, VENOUS STAT 03/31/2019 3:51 Resu lts for this AM [employer] WORK[employer] procedure are i n the results section. TROPONIN I Routine 03/31/2019 1:30 Results for this AM [employer] WORK[employer] procedure are i n the results section. LACTIC ACID, VENOUS Routine 03/31/2019 1:30 Resu lts for this AM [employer] WORK[employer] procedure are i n the results section. B-TYPE NATRIURETIC STAT 03/31/2019 1:30 Resul ts for this FACTOR (BNP) AM [employer] WORK[employer] procedure are i n the results section. POCT-GLUCOSE METER Routine 03/31/2019 12:17 Resul ts for this AM [employer] WORK[employer] procedure are i n the results section. CT BRAIN WITHOUT IV Routine 03/30/2019 11:54 Resu lts for this CONTRAST PM [employer] WORK[employer] procedure are i n the results section. CT CHEST PE TEST Routine 03/30/2019 11:54 Results for this DESIGN PM [employer] WORK[employer] procedure are i n the results section. POCT-HEMOGLOBIN Routine 03/30/2019 8:53 Results for this PM [employer] WORK[employer] procedure are i n the results section. POCT-HEMATOCRIT Routine 03/30/2019 8:53 Results for this PM [employer] WORK[employer] procedure are i n the results section. POCT-CALCIUM IONIZED Routine 03/30/2019 8:53 Res ults for this PM [employer] WORK[employer] procedure are i n the results section. POCT-GLUCOSE Routine 03/30/2019 8:53 Results for this PM [employer] WORK[employer] procedure are i n the results section. POCT-POTASSIUM Routine 03/30/2019 8:53 Results f or this PM [employer] WORKER procedure are i n the results section. POCT-SODIUM Routine 03/30/2019 8:53 Results for this PM [employer] WORK[employer] procedure are i n the results section. POCT-BLOOD GASES, Routine 03/30/2019 8:53 Result s for this ARTERIAL PM [employer] WORK[employer] procedure are i n the results section. CBC W/PLT COUNT & AUTO STAT 03/30/2019 8:44 R esults for this DIFFERENTIAL PM [employer] WORK[employer] procedure are i n the results section. LACTIC ACID, VENOUS Routine 03/30/2019 8:44 Resu lts for this PM [employer] WORK[employer] procedure are i n the results section. PHOSPHORUS STAT 03/30/2019 8:44 Results for this PM [employer] WORK[employer] procedure are i n the results section. MAGNESIUM STAT 03/30/2019 8:44 Results for this PM [employer] WORK[employer] procedure are i n the results section. TROPONIN I STAT 03/30/2019 8:44 Results for this PM [employer] WORK[employer] procedure are i n the results section. COMPREHENSIVE STAT 03/30/2019 8:44 Results fo r this METABOLIC PANEL PM [employer] WORK[employer] procedure ar e in the results section. CBC W/PLT COUNT & AUTO STAT 03/30/2019 8:44 R esults for this DIFFERENTIAL PM [employer] WORK[employer] procedure are i n the results section. XR CHEST 1 VIEW STAT 03/30/2019 8:34 Results for this PORTABLE/BEDSIDE PM [employer] WORKER procedure a re in the results section. APTT Routine 03/30/2019 5:57 Results for this PM [employer] WORK[employer] procedure are i n the results section. POCT-GLUCOSE METER Routine 03/30/2019 5:54 Resul ts for this PM [employer] WORK[employer] procedure are i n the results section. BASIC METABOLIC PANEL Routine 03/30/2019 3:46 Re sults for this (7) PM [employer] WORK[employer] procedure are i n the results section. APTT Routine 03/30/2019 12:08 Results for this PM [employer] WORK[employer] procedure are i n the results section. POCT-GLUCOSE METER Routine 03/30/2019 11:49 Resul ts for this AM [employer] WORK[employer] procedure are i n the results section. XR CHEST 1 VIEW Routine 03/30/2019 7:47 Results for this PORTABLE/BEDSIDE AM [employer] WORK[employer] procedure a re in the results section. APTT Routine 03/30/2019 6:32 Results for this AM [employer] WORK[employer] procedure are i n the results section. POCT-GLUCOSE METER Routine 03/30/2019 5:55 Resul ts for this AM [employer] WORK[employer] procedure are i n the results section. CBC W/PLT COUNT & AUTO Routine 03/30/2019 4:31 R esults for this DIFFERENTIAL AM [employer] WORK[employer] procedure are i n the results section. APTT Routine 03/30/2019 4:31 Results for this AM [employer] WORKER procedure are i n the results section. BASIC METABOLIC PANEL Routine 03/30/2019 4:31 Re sults for this (7) AM [employer] WORK[employer] procedure are i n the results section. PHOSPHORUS Routine 03/30/2019 4:31 Results for this AM [employer] WORKER procedure are i n the results section. MAGNESIUM Routine 03/30/2019 4:31 Results for this AM [employer] WORKER procedure are i n the results section. CBC W/PLT COUNT & AUTO Routine 03/30/2019 4:31 R esults for this DIFFERENTIAL AM [employer] WORK[employer] procedure are i n the results section. POCT-GLUCOSE METER Routine 03/30/2019 12:16 Resul ts for this AM [employer] WORK[employer] procedure are i n the results section. POCT-GLUCOSE METER Routine 03/29/2019 6:14 Resul ts for this PM [employer] WORK[employer] procedure are i n the results section. BASIC METABOLIC PANEL Routine 03/29/2019 12:20 Re sults for this (7) PM [employer] WORK[employer] procedure are i n the results section. POCT-GLUCOSE METER Routine 03/29/2019 12:18 Resul ts for this PM [employer] WORK[employer] procedure are i n the results section. POCT-GLUCOSE METER Routine 03/29/2019 6:00 Resul ts for this AM [employer] WORK[employer] procedure are i n the results section. XR CHEST 1 VIEW Routine 03/29/2019 4:42 Results for this PORTABLE/BEDSIDE AM [employer] WORKER procedure a re in the results section. APTT Routine 03/29/2019 3:33 Results for this AM [employer] WORK[employer] procedure are i n the results section. CBC W/PLT COUNT & AUTO Routine 03/29/2019 3:30 R esults for this DIFFERENTIAL AM [employer] WORK[employer] procedure are i n the results section. BASIC METABOLIC PANEL Routine 03/29/2019 3:30 Re sults for this (7) AM [employer] WORK[employer] procedure are i n the results section. PHOSPHORUS Routine 03/29/2019 3:30 Results for this AM [employer] WORKER procedure are i n the results section. MAGNESIUM Routine 03/29/2019 3:30 Results for this AM [employer] WORK[employer] procedure are i n the results section. CBC W/PLT COUNT & AUTO Routine 03/29/2019 3:30 R esults for this DIFFERENTIAL AM [employer] WORK[employer] procedure are i n the results section. POCT-GLUCOSE METER Routine 03/29/2019 12:23 Resul ts for this AM [employer] WORK[employer] procedure are i n the results section. APTT Routine 03/28/2019 8:25 Results for this PM [employer] WORK[employer] procedure are i n the results section. VANCOMYCIN LEVEL, Timed 03/28/2019 8:25 Result s for this TROUGH PM [employer] WORK[employer] procedure are i n the results section. POCT-GLUCOSE METER Routine 03/28/2019 5:33 Resul ts for this PM [employer] WORK[employer] procedure are i n the results section. BASIC METABOLIC PANEL Routine 03/28/2019 4:03 Re sults for this (7) PM [employer] WORK[employer] procedure are i n the results section. APTT Routine 03/28/2019 2:03 Results for this PM [employer] WORK[employer] procedure are i n the results section. POCT-GLUCOSE METER Routine 03/28/2019 12:26 Resul ts for this PM [employer] WORK[employer] procedure are i n the results section. CYTOLOGY AP Routine 03/28/2019 8:03 Results for this AM [employer] WORK[employer] procedure are i n the results section. APTT Routine 03/28/2019 6:30 Results for this AM [employer] WORK[employer] procedure are i n the results section. CBC W/PLT COUNT & AUTO Routine 03/28/2019 4:21 R esults for this DIFFERENTIAL AM [employer] WORK[employer] procedure are i n the results section. APTT Routine 03/28/2019 4:21 Results for this AM [employer] WORK[employer] procedure are i n the results section. BASIC METABOLIC PANEL Routine 03/28/2019 4:21 Re sults for this (7) AM [employer] WORK[employer] procedure are i n the results section. PHOSPHORUS Routine 03/28/2019 4:21 Results for this AM [employer] WORKER procedure are i n the results section. MAGNESIUM Routine 03/28/2019 4:21 Results for this AM [employer] WORK[employer] procedure are i n the results section. CBC W/PLT COUNT & AUTO Routine 03/28/2019 4:21 R esults for this DIFFERENTIAL AM [employer] WORK[employer] procedure are i n the results section. XR CHEST 1 VIEW Routine 03/28/2019 3:24 Results for this PORTABLE/BEDSIDE AM [employer] WORKER procedure a re in the results section. POCT-GLUCOSE METER Routine 03/28/2019 12:13 Resul ts for this AM [employer] WORK[employer] procedure are i n the results section. POCT-GLUCOSE METER Routine 03/27/2019 5:40 Resul ts for this PM [employer] WORK[employer] procedure are i n the results section. BASIC METABOLIC PANEL Routine 03/27/2019 4:05 Re sults for this (7) PM [employer] WORK[employer] procedure are i n the results section. APTT Routine 03/27/2019 12:05 Results for this PM [employer] WORK[employer] procedure are i n the results section. POCT-GLUCOSE METER Routine 03/27/2019 11:31 Resul ts for this AM [employer] WORK[employer] procedure are i n the results section. APTT Routine 03/27/2019 5:34 Results for this AM [employer] WORK[employer] procedure are i n the results section. POCT-GLUCOSE METER Routine 03/27/2019 5:05 Resul ts for this AM [employer] WORK[employer] procedure are i n the results section. CBC W/PLT COUNT & AUTO Routine 03/27/2019 4:32 R esults for this DIFFERENTIAL AM [employer] WORK[employer] procedure are i n the results section. BASIC METABOLIC PANEL Routine 03/27/2019 4:32 Re sults for this (7) AM [employer] WORK[employer] procedure are i n the results section. PHOSPHORUS Routine 03/27/2019 4:32 Results for this AM [employer] WORK[employer] procedure are i n the results section. MAGNESIUM Routine 03/27/2019 4:32 Results for this AM [employer] WORK[employer] procedure are i n the results section. CBC W/PLT COUNT & AUTO Routine 03/27/2019 4:32 R esults for this DIFFERENTIAL AM [employer] WORK[employer] procedure are i n the results section. XR CHEST 1 VIEW Routine 03/27/2019 3:54 Results for this PORTABLE/BEDSIDE AM [employer] WORK[employer] procedure a re in the results section. ECHOCARDIOGRAM REPORT 03/26/2019 9:11 - SCAN PM [employer]ON WORKER APTT Routine 03/26/2019 8:13 Results for this PM [employer] WORKER procedure are i n the results section. IR DRAINAGE CATHETER CHRISSIE 03/26/2019 7:30 Res ults for this CHANGE PM [employer] WORK[employer] procedure are i n the results section. POCT-GLUCOSE METER Routine 03/26/2019 6:20 Resul ts for this PM [employer] WORKER procedure are i n the results section. BASIC METABOLIC PANEL Routine 03/26/2019 5:33 Re sults for this (7) PM [employer] WORK[employer] procedure are i n the results section. APTT Routine 03/26/2019 12:53 Results for this PM [employer] WORK[employer] procedure are i n the results section. POCT-GLUCOSE METER Routine 03/26/2019 11:54 Resul ts for this AM [employer] WORK[employer] procedure are i n the results section. APTT Routine 03/26/2019 10:27 Results for this AM [employer] WORK[employer] procedure are i n the results section. POCT-GLUCOSE METER Routine 03/26/2019 6:42 Resul ts for this AM [employer] WORK[employer] procedure are i n the results section. XR CHEST 1 VIEW Routine 03/26/2019 3:58 Results for this PORTABLE/BEDSIDE AM [employer] WORK[employer] procedure a re in the results section. BLOOD GAS, ARTERIAL Routine 03/26/2019 3:08 Resu lts for this AM [employer] WORK[employer] procedure are i n the results section. CBC W/PLT COUNT & AUTO Routine 03/26/2019 3:00 R esults for this DIFFERENTIAL AM [employer] WORK[employer] procedure are i n the results section. APTT Routine 03/26/2019 3:00 Results for this AM [employer] WORK[employer] procedure are i n the results section. BASIC METABOLIC PANEL Routine 03/26/2019 3:00 Re sults for this (7) AM [employer] WORK[employer] procedure are i n the results section. PHOSPHORUS Routine 03/26/2019 3:00 Results for this AM [employer] WORK[employer] procedure are i n the results section. MAGNESIUM Routine 03/26/2019 3:00 Results for this AM [employer] WORK[employer] procedure are i n the results section. CBC W/PLT COUNT & AUTO Routine 03/26/2019 3:00 R esults for this DIFFERENTIAL AM [employer] WORK[employer] procedure are i n the results section. POCT-GLUCOSE METER Routine 03/26/2019 12:02 Resul ts for this AM [employer] WORK[employer] procedure are i n the results section. BASIC METABOLIC PANEL Routine 03/25/2019 8:05 Re sults for this (7) PM [employer] WORK[employer] procedure are i n the results section. 2D ECHO W/ DOPPLER STAT 03/25/2019 7:04 Resul ts for this (CW/PW/COLOR) PM [employer] WORK[employer] procedure are in the results section. POCT-GLUCOSE METER Routine 03/25/2019 6:10 Resul ts for this PM [employer] WORKER procedure are i n the results section. CT ABDOMEN/PELVIS STAT 03/25/2019 6:00 Result s for this WITHOUT IV CONTRAST PM [employer] WORK[employer] procedur e are in the results section. CT CHEST WITHOUT IV STAT 03/25/2019 6:00 Resu lts for this CONTRAST PM [employer] WORK[employer] procedure are i n the results section. XR CHEST 1 VIEW STAT 03/25/2019 4:10 Results for this PORTABLE/BEDSIDE PM [employer] WORK[employer] procedure a re in the results section. APTT Routine 03/25/2019 3:30 Results for this PM [employer] WORK[employer] procedure are i n the results section. BASIC METABOLIC PANEL Routine 03/25/2019 11:46 Re sults for this (7) AM [employer] WORK[employer] procedure are i n the results section. BLOOD GAS, ARTERIAL Routine 03/25/2019 11:43 Resu lts for this AM [employer] WORK[employer] procedure are i n the results section. POCT-GLUCOSE METER Routine 03/25/2019 11:40 Resul ts for this AM [employer] WORK[employer] procedure are i n the results section. APTT Routine 03/25/2019 9:33 Results for this AM [employer] WORK[employer] procedure are i n the results section. BLOOD CULTURE Routine 03/25/2019 9:32 Results fo r this AM [employer] WORK[employer] procedure are i n the results section. BLOOD CULTURE Routine 03/25/2019 9:32 Results fo r this AM [employer] WORK[employer] procedure are i n the results section. URINALYSIS W/ REFLEX Routine 03/25/2019 9:08 Res ults for this URINE CULTURE AM [employer] WORK[employer] procedure are in the results section. URINE CULTURE Routine 03/25/2019 9:08 Results fo r this AM [employer] WORK[employer] procedure are i n the results section. SPUTUM CULTURE + GRAM Routine 03/25/2019 9:08 Re sults for this STAIN AM [employer] WORK[employer] procedure are i n the results section. ECG 12-LEAD STAT 03/25/2019 8:09 Results for this AM [employer] WORK[employer] procedure are i n the results section. POCT-GLUCOSE METER Routine 03/25/2019 6:06 Resul ts for this AM [employer] WORK[employer] procedure are i n the results section. XR CHEST 1 VIEW Routine 03/25/2019 4:03 Results for this PORTABLE/BEDSIDE AM [employer] WORK[employer] procedure a re in the results section. BASIC METABOLIC PANEL Routine 03/25/2019 3:30 Re sults for this (7) AM [employer] WORK[employer] procedure are i n the results section. PHOSPHORUS Routine 03/25/2019 3:30 Results for this AM [employer] WORK[employer] procedure are i n the results section. MAGNESIUM Routine 03/25/2019 3:30 Results for this AM [employer] WORK[employer] procedure are i n the results section. CBC W/PLT COUNT & AUTO Routine 03/25/2019 3:09 R esults for this DIFFERENTIAL AM [employer] WORK[employer] procedure are i n the results section. APTT Routine 03/25/2019 3:09 Results for this AM [employer] WORK[employer] procedure are i n the results section. CBC W/PLT COUNT & AUTO Routine 03/25/2019 3:09 R esults for this DIFFERENTIAL AM [employer] WORK[employer] procedure are i n the results section. POCT-GLUCOSE METER Routine 03/25/2019 12:01 Resul ts for this AM [employer] WORK[employer] procedure are i n the results section. APTT Routine 03/24/2019 8:31 Results for this PM [employer] WORK[employer] procedure are i n the results section. BASIC METABOLIC PANEL Routine 03/24/2019 8:31 Re sults for this (7) PM [employer] WORK[employer] procedure are i n the results section. POCT-GLUCOSE METER Routine 03/24/2019 6:07 Resul ts for this PM [employer] WORK[employer] procedure are i n the results section. XR ABDOMEN / KUB 1 STAT 03/24/2019 5:12 Resul ts for this VIEW PM [employer] WORK[employer] procedure are i n the results section. XR CHEST 1 VIEW STAT 03/24/2019 5:12 Results for this PORTABLE/BEDSIDE PM [employer] WORK[employer] procedure a re in the results section. APTT Routine 03/24/2019 12:36 Results for this PM [employer] WORK[employer] procedure are i n the results section. BASIC METABOLIC PANEL Routine 03/24/2019 12:36 Re sults for this (7) PM [employer] WORK[employer] procedure are i n the results section. POCT-GLUCOSE METER Routine 03/24/2019 12:17 Resul ts for this PM [employer] WORK[employer] procedure are i n the results section. BLOOD GAS, ARTERIAL Routine 03/24/2019 12:04 Resu lts for this PM [employer] WORK[employer] procedure are i n the results section. EEG EXTENDED STAT 03/24/2019 11:23 Results for this MONITORING 40 - 60 AM [employer]ON WORKER procedure are in MINUTES the results section. POCT-GLUCOSE METER Routine 03/24/2019 5:58 Resul ts for this AM [employer] WORK[employer] procedure are i n the results section. BLOOD GAS, ARTERIAL STAT 03/24/2019 4:29 Resu lts for this AM [employer] WORK[employer] procedure are i n the results section. APTT Routine 03/24/2019 4:25 Results for this AM [employer] WORK[employer] procedure are i n the results section. CBC W/PLT COUNT & AUTO Routine 03/24/2019 4:10 R esults for this DIFFERENTIAL AM [employer] WORK[employer] procedure are i n the results section. BASIC METABOLIC PANEL Routine 03/24/2019 4:10 Re sults for this (7) AM [employer] WORK[employer] procedure are i n the results section. PHOSPHORUS Routine 03/24/2019 4:10 Results for this AM [employer] WORK[employer] procedure are i n the results section. MAGNESIUM Routine 03/24/2019 4:10 Results for this AM [employer] WORK[employer] procedure are i n the results section. CBC W/PLT COUNT & AUTO Routine 03/24/2019 4:10 R esults for this DIFFERENTIAL AM [employer] WORK[employer] procedure are i n the results section. XR CHEST 1 VIEW Routine 03/24/2019 3:00 Results for this PORTABLE/BEDSIDE AM [employer] WORK[employer] procedure a re in the results section. CT BRAIN WITHOUT IV Routine 03/24/2019 1:12 Resu lts for this CONTRAST AM [employer] WORK[employer] procedure are i n the results section. POCT-GLUCOSE METER Routine 03/24/2019 12:05 Resul ts for this AM [employer] WORK[employer] procedure are i n the results section. VANCOMYCIN LEVEL, Timed 03/23/2019 11:59 Result s for this TROUGH PM [employer] WORK[employer] procedure are i n the results section. BASIC METABOLIC PANEL Routine 03/23/2019 7:44 Re sults for this (7) PM [employer] WORK[employer] procedure are i n the results section. AMMONIA STAT 03/23/2019 3:55 Results for this PM [employer] WORK[employer] procedure are i n the results section. HEPATIC FUNCTION PANEL Routine 03/23/2019 3:55 R esults for this PM [employer] WORK[employer] procedure are i n the results section. BASIC METABOLIC PANEL Routine 03/23/2019 3:55 Re sults for this (7) PM [employer] WORK[employer] procedure are i n the results section. (CELLAVISION MANUAL Routine 03/23/2019 5:58 Resu lts for this DIFF) AM [employer] WORK[employer] procedure are i n the results section. CBC W/PLT COUNT & AUTO Routine 03/23/2019 5:58 R esults for this DIFFERENTIAL AM [employer] WORK[employer] procedure are i n the results section. BLOOD GAS, ARTERIAL Routine 03/23/2019 5:58 Resu lts for this AM [employer] WORK[employer] procedure are i n the results section. APTT Routine 03/23/2019 5:58 Results for this AM [employer] WORK[employer] procedure are i n the results section. BASIC METABOLIC PANEL Routine 03/23/2019 5:58 Re sults for this (7) AM [employer] WORK[employer] procedure are i n the results section. PHOSPHORUS Routine 03/23/2019 5:58 Results for this AM [employer] WORK[employer] procedure are i n the results section. MAGNESIUM Routine 03/23/2019 5:58 Results for this AM [employer] WORK[employer] procedure are i n the results section. CBC W/PLT COUNT & AUTO Routine 03/23/2019 5:58 R esults for this DIFFERENTIAL AM [employer] WORK[employer] procedure are i n the results section. POCT-GLUCOSE METER Routine 03/23/2019 5:24 Resul ts for this AM [employer] WORK[employer] procedure are i n the results section. POCT-GLUCOSE METER Routine 03/23/2019 12:09 Resul ts for this AM [employer] WORK[employer] procedure are i n the results section. APTT Routine 03/22/2019 11:35 Results for this PM [employer] WORK[employer] procedure are i n the results section. BASIC METABOLIC PANEL Routine 03/22/2019 8:05 Re sults for this (7) PM [employer] WORK[employer] procedure are i n the results section. PT/APTT Routine 03/22/2019 5:15 Results for this PM [employer] WORK[employer] procedure are i n the results section. SPIN/CONCENTRATION Routine 03/22/2019 2:37 Resul ts for this CHARGE PM [employer] WORK[employer] procedure are i n the results section. FUNGUS CULTURE + Routine 03/22/2019 2:37 Results for this SMEAR PM [employer] WORK[employer] procedure are i n the results section. BODY FLUID CELL COUNT Routine 03/22/2019 2:37 Re sults for this WITH DIFFERENTIAL PM [employer] WORK[employer] procedure are in the results section. AFB CULTURE + SMEAR Routine 03/22/2019 2:37 Resu lts for this (NON-SPUTUM) PM [employer] WORK[employer] procedure are i n the results section. TRIGLYCERIDES, PLEURAL Routine 03/22/2019 2:36 R esults for this FLUID PM [employer] WORK[employer] procedure are i n the results section. PROTEIN, TOTAL, Routine 03/22/2019 2:36 Results for this PLEURAL FLUID PM [employer] WORK[employer] procedure are in the results section. PH, BODY FLUID Routine 03/22/2019 2:36 Results f or this PM [employer] WORK[employer] procedure are i n the results section. LACTATE DEHYDROGENASE Routine 03/22/2019 2:36 Re sults for this (LD), PLEURAL FLUID PM [employer] WORK[employer] procedur e are in the results section. GLUCOSE PLEURAL FLUID Routine 03/22/2019 2:36 Re sults for this PM [employer] WORK[employer] procedure are i n the results section. BODY FLUID CULTURE + Routine 03/22/2019 2:36 Res ults for this GRAM STAIN PM [employer] WORK[employer] procedure are i n the results section. ADENOSINE DEAMINASE, Routine 03/22/2019 2:36 Res ults for this FLUID PM [employer] WORK[employer] procedure are i n the results section. TRIGLYCERIDES, PLEURAL Routine 03/22/2019 2:35 R esults for this FLUID PM APRON WORKER procedure are i n the results section. PH, BODY FLUID Routine 03/22/2019 2:35 Results f or this PM APRON WORKER procedure are i n the results section. PROTEIN, TOTAL, Routine 03/22/2019 2:35 Results for this PLEURAL FLUID PM APRON WORKER procedure are in the results section. LACTATE DEHYDROGENASE Routine 03/22/2019 2:35 Re sults for this (LD), PLEURAL FLUID PM APRON WORKER procedur e are in the results section. GLUCOSE PLEURAL FLUID Routine 03/22/2019 2:35 Re sults for this PM APRON WORKER procedure are i n the results section. FUNGUS CULTURE + Routine 03/22/2019 2:35 Results for this SMEAR PM APRON WORKER procedure are i n the results section. BODY FLUID CULTURE + Routine 03/22/2019 2:35 Res ults for this GRAM STAIN PM APRON WORKER procedure are i n the results section. BODY FLUID CELL COUNT Routine 03/22/2019 2:35 Re sults for this WITH DIFFERENTIAL PM APRON WORKER procedure are in the results section. ALBUMIN PLEURAL FLUID Routine 03/22/2019 2:35 Re sults for this PM APRON WORKER procedure are i n the results section. AFB CULTURE + SMEAR Routine 03/22/2019 2:35 Resu lts for this (NON-SPUTUM) PM APRON WORKER procedure are i n the results section. ADENOSINE DEAMINASE, Routine 03/22/2019 2:35 Res ults for this FLUID PM APRON WORKER procedure are i n the results section. SPIN/CONCENTRATION Routine 03/22/2019 2:32 Resul ts for this CHARGE PM APRON WORKER procedure are i n the results section. SPIN/CONCENTRATION Routine 03/22/2019 2:32 Resul ts for this CHARGE PM APRON WORKER procedure are i n the results section. AFB CULTURE + SMEAR CHRISSIE 03/22/2019 2:32 Resu lts for this (NON-SPUTUM) PM APRON WORKER procedure are i n the results section. LEGIONELLA CULTURE Routine 03/22/2019 2:32 Resul ts for this PM APRON WORKER procedure are i n the results section. FUNGUS CULTURE + CHRISSIE 03/22/2019 2:32 Results for this SMEAR PM APRON WORKER procedure are i n the results section. BRONCHIAL CULTURE + CHRISSIE 03/22/2019 2:32 Resu lts for this GRAM STAIN PM APRON WORKER procedure are i n the results section. FUNGUS CULTURE + Routine 03/22/2019 2:32 Results for this SMEAR PM APRON WORKER procedure are i n the results section. AFB CULTURE + SMEAR Routine 03/22/2019 2:32 Resu lts for this (NON-SPUTUM) PM APRON WORKER procedure are i n the results section. BRONCHIAL CULTURE + Routine 03/22/2019 2:32 Resu lts for this GRAM STAIN PM APRON WORKER procedure are i n the results section. APTT Routine 03/22/2019 9:35 Results for this AM APRON WORKER procedure are i n the results section. BASIC METABOLIC PANEL Routine 03/22/2019 9:35 Re sults for this (7) AM APRON WORKER procedure are i n the results section. BLOOD CULTURE Routine 03/22/2019 9:35 Results fo r this AM APRON WORKER procedure are i n the results section. BLOOD CULTURE Routine 03/22/2019 9:35 Results fo r this AM APRON WORKER procedure are i n the results section. XR CHEST 1 VIEW Routine 03/22/2019 8:09 Results for this PORTABLE/BEDSIDE AM APRON WORKER procedure a re in the results section. POCT-GLUCOSE METER Routine 03/22/2019 5:53 Resul ts for this AM APRON WORKER procedure are i n the results section. CBC W/PLT COUNT & AUTO Routine 03/22/2019 1:58 R esults for this DIFFERENTIAL AM APRON WORKER procedure are i n the results section. BASIC METABOLIC PANEL Routine 03/22/2019 1:58 Re sults for this (7) AM APRON WORKER procedure are i n the results section. PHOSPHORUS Routine 03/22/2019 1:58 Results for this AM APRON WORKER procedure are i n the results section. CBC W/PLT COUNT & AUTO Routine 03/22/2019 1:58 R esults for this DIFFERENTIAL AM APRON WORKER procedure are i n the results section. MAGNESIUM STAT 03/22/2019 1:58 Results for this AM APRON WORKER procedure are i n the results section. VANCOMYCIN LEVEL, Routine 03/22/2019 1:58 Result s for this TROUGH AM APRON WORKER procedure are i n the results section. POCT-GLUCOSE METER Routine 03/22/2019 12:30 Resul ts for this AM APRON WORKER procedure are i n the results section. BASIC METABOLIC PANEL Routine 03/21/2019 9:52 Re sults for this (7) PM APRON WORKER procedure are i n the results section. TRANSFUSION SERVICE 03/21/2019 9:06 REPORT - SCAN PM APRON WORKER BODY FLUID CULTURE + Routine 03/21/2019 7:34 Res ults for this GRAM STAIN PM APRON WORKER procedure are i n the results section. TRIGLYCERIDES, PLEURAL Routine 03/21/2019 7:10 R esults for this FLUID PM APRON WORKER procedure are i n the results section. PROTEIN, TOTAL, Routine 03/21/2019 7:10 Results for this PLEURAL FLUID PM APRON WORKER procedure are in the results section. PH, BODY FLUID Routine 03/21/2019 7:10 Results f or this PM APRON WORKER procedure are i n the results section. FUNGUS CULTURE + Routine 03/21/2019 7:10 Results for this SMEAR PM APRON WORKER procedure are i n the results section. BODY FLUID CELL COUNT Routine 03/21/2019 7:10 Re sults for this WITH DIFFERENTIAL PM APRON WORKER procedure are in the results section. LACTATE DEHYDROGENASE Routine 03/21/2019 7:09 Re sults for this (LD), PLEURAL FLUID PM APRON WORKER procedur e are in the results section. GLUCOSE PLEURAL FLUID Routine 03/21/2019 7:09 Re sults for this PM APRON WORKER procedure are i n the results section. ALBUMIN PLEURAL FLUID Routine 03/21/2019 7:09 Re sults for this PM APRON WORKER procedure are i n the results section. US DRAINAGE CHEST WITH STAT 03/21/2019 6:25 R esults for this TUBE INSERTION PM APRON WORKER procedure are in the results section. RETICULOCYTE COUNT Routine 03/21/2019 8:50 Resul ts for this AM APRON WORKER procedure are i n the results section. RESPIRATORY PANEL SLHS Routine 03/21/2019 8:50 R esults for this AM APRON WORKER procedure are i n the results section. RAPID INFLUENZA A&B STAT 03/21/2019 8:50 Resu lts for this SCREEN AM APRON WORKER procedure are i n the results section. MRSA SCREEN STAT 03/21/2019 8:50 Results for this AM APRON WORKER procedure are i n the results section. MAGNESIUM Add-On 03/21/2019 8:49 Results for this AM APRON WORKER procedure are i n the results section. BASIC METABOLIC PANEL Routine 03/21/2019 8:49 Re sults for this (7) AM APRON WORKER procedure are i n the results section. VITAMIN B12 AND FOLATE Routine 03/21/2019 8:49 R esults for this AM APRON WORKER procedure are i n the results section. LACTATE DEHYDROGENASE Routine 03/21/2019 8:49 Re sults for this (LDH) AM APRON WORKER procedure are i n the results section. IRON, TIBC, % SAT. Routine 03/21/2019 8:49 Resul ts for this (WITHOUT FERRITIN) AM APRON WORKER procedure are in the results section. FERRITIN Routine 03/21/2019 8:49 Results for this AM APRON WORKER procedure are i n the results section. POCT-GLUCOSE METER Routine 03/21/2019 5:34 Resul ts for this AM APRON WORKER procedure are i n the results section. US ABDOMEN LIMITED Routine 03/21/2019 3:55 Resul ts for this AM APRON WORKER procedure are i n the results section. (CELLAVISION MANUAL Routine 03/21/2019 2:03 Resu lts for this DIFF) AM APRON WORKER procedure are i n the results section. CBC W/PLT COUNT & AUTO Routine 03/21/2019 2:03 R esults for this DIFFERENTIAL AM APRON WORKER procedure are i n the results section. PHOSPHORUS Routine 03/21/2019 2:03 Results for this AM APRON WORKER procedure are i n the results section. MAGNESIUM Routine 03/21/2019 2:03 Results for this AM APRON WORKER procedure are i n the results section. CBC W/PLT COUNT & AUTO Routine 03/21/2019 2:03 R esults for this DIFFERENTIAL AM APRON WORKER procedure are i n the results section. MAGNESIUM STAT Add-on 03/21/2019 12:18 Results for this AM APRON WORKER procedure are i n the results section. BASIC METABOLIC PANEL Routine 03/21/2019 12:18 Re sults for this (7) AM APRON WORKER procedure are i n the results section. POCT-GLUCOSE METER Routine 03/20/2019 11:46 Resul ts for this PM APRON WORKER procedure are i n the results section. ECHOCARDIOGRAM REPORT 03/20/2019 9:22 - SCAN PM APRON WORKER POCT-GLUCOSE METER Routine 03/20/2019 6:11 Resul ts for this PM APRON WORKER procedure are i n the results section. BLOOD GAS, ARTERIAL STAT 03/20/2019 4:34 Resu lts for this PM APRON WORKER procedure are i n the results section. MAGNESIUM STAT Add-on 03/20/2019 4:33 Results for this PM APRON WORKER procedure are i n the results section. BASIC METABOLIC PANEL Routine 03/20/2019 4:33 Re sults for this (7) PM APRON WORKER procedure are i n the results section. VANCOMYCIN LEVEL, STAT 03/20/2019 12:58 Result s for this TROUGH PM APRON WORKER procedure are i n the results section. ECG 12-LEAD Routine 03/20/2019 12:42 PM APRON WORKER Procedure Note - Interface, External Ris In - 03/20/2019 1:04 PM APRON WORKER Ventricular Rate 95 BPM Atrial Rate 326 BPM QRS Duration 106 ms Q-T Interval 362 ms QTC Calculation(Bazett) 454 ms R [place] 15 degrees T [place] 134 degrees Atrial fibrillation Minimal voltage criteria for LVH, may be normal variant Nonspecific ST and T wave ab normality , probably digitalis effect Abnormal ECG When compared with ECG of 00:28, T wave inversion no longer e vident in Anterior leads ECG 12-LEAD Routine 03/20/2019 12:42 PM APRON WORKER Resu lts for this procedure are i n the results section . POCT-GLUCOSE METER Routine 03/20/2019 12:14 PM APRON WORKER Results for this procedure are i n the results section . 2D ECHO W/ DOPPLER STAT 03/20/2019 11:05 AM APRON WORKER Results for this (CW/PW/COLOR) procedure are in the results section . CT CHEST WITHOUT IV STAT 03/20/2019 10:45 AM APRON WORKER Results for this CONTRAST procedure are i n the results section . SPUTUM CULTURE + GRAM STAIN Routine 03/20/2019 6:31 AM APRON WORKER Results for this procedure are i n the results section . TROPONIN I Routine 03/20/2019 5:49 AM APRON WORKER Resu lts for this procedure are i n the results section . ABORH, MANUAL STAT 03/20/2019 5:48 AM APRON WORKER Res ults for this procedure are i n the results section . POCT-GLUCOSE METER Routine 03/20/2019 5:44 AM APRON WORKER Results for this procedure are i n the results section . XR CHEST 1 VIEW STAT 03/20/2019 4:05 AM APRON WORKER R esults for this PORTABLE/BEDSIDE procedure a re in the results section . BLOOD GAS, ARTERIAL STAT 03/20/2019 3:14 AM APRON WORKER Results for this procedure are i n the results section . BLOOD CULTURE Routine 03/20/2019 3:08 AM APRON WORKER Res ults for this procedure are i n the results section . BLOOD CULTURE Routine 03/20/2019 3:08 AM APRON WORKER Res ults for this procedure are i n the results section . TYPE AND SCREEN, AUTOMATED STAT 03/20/2019 3:00 AM APRON WORKER Results for this procedure are i n the results section . FIBRINOGEN STAT 03/20/2019 3:00 AM APRON WORKER Resu lts for this procedure are i n the results section . LACTIC ACID, VENOUS STAT 03/20/2019 3:00 AM APRON WORKER Results for this procedure are i n the results section . PT/APTT Routine 03/20/2019 3:00 AM APRON WORKER Resu lts for this procedure are i n the results section . PROTHROMBIN TIME/INR Routine 03/20/2019 3:00 AM APRON WORKER Results for this procedure are i n the results section . TSH/FREE T4 IF INDICATED Routine 03/20/2019 3:00 AM APRON WORKER Results for this procedure are i n the results section . HEMOGLOBIN A1C Routine 03/20/2019 3:00 AM APRON WORKER Re sults for this procedure are i n the results section . B-TYPE NATRIURETIC FACTOR STAT 03/20/2019 3:00 AM APRON WORKER Results for this (BNP) procedure are i n the results section . VANCOMYCIN LEVEL, RANDOM Routine 03/20/2019 3:00 AM APRON WORKER Results for this procedure are i n the results section . CBC W/PLT COUNT & AUTO Routine 03/20/2019 2:59 AM APRON WORKER Results for this DIFFERENTIAL procedure are i n the results section . CBC W/PLT COUNT & AUTO Routine 03/20/2019 2:59 AM APRON WORKER Results for this DIFFERENTIAL procedure are i n the results section . LIPID PANEL Routine 03/20/2019 2:59 AM APRON WORKER Resu lts for this procedure are i n the results section . TROPONIN I Routine 03/20/2019 2:59 AM APRON WORKER Resu lts for this procedure are i n the results section . PHOSPHORUS STAT 03/20/2019 2:59 AM APRON WORKER Resu lts for this procedure are i n the results section . MAGNESIUM STAT 03/20/2019 2:59 AM APRON WORKER Resu lts for this procedure are i n the results section . HEPATIC FUNCTION PANEL STAT 03/20/2019 2:59 AM APRON WORKER Results for this procedure are i n the results section . BASIC METABOLIC PANEL (7) STAT 03/20/2019 2:59 AM APRON WORKER Results for this procedure are i n the results section . LEGIONELLA URINE ANTIGEN Routine 03/20/2019 2:23 AM APRON WORKER Results for this procedure are i n the results section . STREP PNEUMONIAE ANTIGEN Routine 03/20/2019 2:23 AM APRON WORKER Results for this procedure are i n the results section . URINALYSIS W/ REFLEX URINE Routine 03/20/2019 2:22 AM APRON WORKER Results for this CULTURE procedure are i n the results section . OSMOLALITY, URINE Routine 03/20/2019 2:22 AM APRON WORKER Results for this procedure are i n the results section . PROTEIN, RANDOM URINE Routine 03/20/2019 2:22 AM APRON WORKER Results for this procedure are i n the results section . UREA NITROGEN, RANDOM URINE Routine 03/20/2019 2:22 AM APRON WORKER Results for this procedure are i n the results section . CREATININE, RANDOM URINE Routine 03/20/2019 2:22 AM APRON WORKER Results for this procedure are i n the results section . CHLORIDE, RANDOM URINE Routine 03/20/2019 2:22 AM APRON WORKER Results for this procedure are i n the results section . SODIUM, RANDOM URINE Routine 03/20/2019 2:22 AM APRON WORKER Results for this procedure are i n the results section . URINE CULTURE Routine 03/20/2019 2:22 AM APRON WORKER Res ults for this procedure are i n the results section . POCT-GLUCOSE METER Routine 03/20/2019 12:39 AM APRON WORKER Results for this procedure are i n the results section . ECG 12-LEAD Routine 03/20/2019 12:28 AM APRON WORKER Procedure Note - Interface, External Ris In - 03/20/2019 1:55 AM APRON WORKER Ventricular Rate 125 BPM Atrial Rate 129 BPM QRS Duration 106 ms Q-T Interval 356 ms QTC Calculation(Bazett) 513 ms R [place] 15 degrees T [place] 168 degrees Atrial fibrillation with rap id ventricular response with premature ventricular or aberrantly conducted complexes ST & T wave abnormality, con model and dye person anterolateral ischemia or digitalis effect Abnormal ECG When compared with ECG of 09:00, ST now depressed in Anterior leads Nonspecific T wave abnormali ty has replaced inverted T waves in Inferior leads T wave inversion now evident in Anterior leads ECG 12-LEAD Routine 03/20/2019 12:28 AM APRON WORKER Resu lts for this procedure are i n the results section . REPORT OF PROCEDURE - 01/28/2019 1:40 PM APRON WORKER ENDOSCOPY SCAN RHYTHM STRIP - SCAN 01/28/2019 1:40 PM APRON WORKER CBC W/PLT COUNT & AUTO Routine 01/24/2019 4:31 AM APRON WORKER Results for this DIFFERENTIAL procedure are i n the results section . PHOSPHORUS STAT Add-on 01/24/2019 4:31 AM APRON WORKER Resu lts for this procedure are i n the results section . MAGNESIUM STAT Add-on 01/24/2019 4:31 AM APRON WORKER Resu lts for this procedure are i n the results section . BASIC METABOLIC PANEL (7) Routine 01/24/2019 4:31 AM APRON WORKER Results for this procedure are i n the results section . CBC W/PLT COUNT & AUTO Routine 01/24/2019 4:31 AM APRON WORKER Results for this DIFFERENTIAL procedure are i n the results section . TROPONIN I STAT 01/23/2019 9:59 PM APRON WORKER Resu lts for this procedure are i n the results section . ECHOCARDIOGRAM REPORT - 01/23/2019 9:21 PM APRON WORKER SCAN TROPONIN I STAT 01/23/2019 4:02 PM APRON WORKER Resu lts for this procedure are i n the results section . B-TYPE NATRIURETIC FACTOR STAT 01/23/2019 10:13 AM APRON WORKER Results for this (BNP) procedure are i n the results section . TROPONIN I STAT 01/23/2019 10:13 AM APRON WORKER Resu lts for this procedure are i n the results section . TSH/FREE T4 IF INDICATED CHRISSIE 01/23/2019 10:13 AM APRON WORKER Results for this procedure are i n the results section . ECG 12-LEAD STAT 01/23/2019 9:00 AM APRON WORKER Resu lts for this procedure are i n the results section . MRA HEAD WITHOUT IV STAT 01/23/2019 8:01 AM APRON WORKER Results for this CONTRAST procedure are i n the results section . CBC W/PLT COUNT & AUTO Routine 01/23/2019 4:59 AM APRON WORKER Results for this DIFFERENTIAL procedure are i n the results section . MAGNESIUM STAT Add-on 01/23/2019 4:59 AM APRON WORKER Resu lts for this procedure are i n the results section . BASIC METABOLIC PANEL (7) Routine 01/23/2019 4:59 AM APRON WORKER Results for this procedure are i n the results section . CBC W/PLT COUNT & AUTO Routine 01/23/2019 4:59 AM APRON WORKER Results for this DIFFERENTIAL procedure are i n the results section . POTASSIUM Routine 01/22/2019 7:43 PM APRON WORKER Resu lts for this procedure are i n the results section . MR BRAIN WITHOUT IV Routine 01/22/2019 6:11 PM APRON WORKER Results for this CONTRAST procedure are i n the results section . CT/CTA CAROTID Routine 01/22/2019 4:59 PM APRON WORKER Re sults for this procedure are i n the results section . CTA BRAIN Routine 01/22/2019 4:59 PM APRON WORKER Resu lts for this procedure are i n the results section . 2D ECHO W/ DOPPLER Routine 01/22/2019 1:16 PM APRON WORKER Results for this (CW/PW/COLOR) procedure are in the results section . MAGNESIUM STAT Add-on 01/22/2019 4:17 AM APRON WORKER Resu lts for this procedure are i n the results section . TROPONIN I Routine 01/22/2019 4:17 AM APRON WORKER Resu lts for this procedure are i n the results section . HEMOGLOBIN A1C Routine 01/22/2019 4:17 AM APRON WORKER Re sults for this procedure are i n the results section . LIPID PANEL Routine 01/22/2019 4:17 AM APRON WORKER Resu lts for this procedure are i n the results section . CBC W/PLT COUNT & AUTO Routine 01/21/2019 11:26 PM APRON WORKER Results for this DIFFERENTIAL procedure are i n the results section . PROTHROMBIN TIME/INR Routine 01/21/2019 11:26 PM APRON WORKER Results for this procedure are i n the results section . VITAMIN B12 AND FOLATE Routine 01/21/2019 11:26 PM APRON WORKER Results for this procedure are i n the results section . RPR Routine 01/21/2019 11:26 PM APRON WORKER Resu lts for this procedure are i n the results section . TSH/FREE T4 IF INDICATED Routine 01/21/2019 11:26 PM APRON WORKER Results for this procedure are i n the results section . TROPONIN I Routine 01/21/2019 11:26 PM APRON WORKER Resu lts for this procedure are i n the results section . CBC W/PLT COUNT & AUTO Routine 01/21/2019 11:26 PM APRON WORKER Results for this DIFFERENTIAL procedure are i n the results section . BASIC METABOLIC PANEL (7) Routine 01/21/2019 11:26 PM APRON WORKER Results for this procedure are i n the results section . XR CHEST 1 VIEW Routine 01/21/2019 11:19 PM APRON WORKER R esults for this PORTABLE/BEDSIDE procedure a re in the results section . after 09/07/2018 Results RHYTHM STRIP - SCAN (07/02/2019 12:50 [...] : TESTED AT 70 - 110 mg/dL [facility] [address], [place], [address]: [employer] Employee/Ice Skating Instructor ID = [id number] for RYAN ECHOLS Specimen Blood Performing Organization Address City/State/Zipcode Phone Number [address] [address] CENTER Comprehensive metabolic panel (06/09/2019 11:30 AM CDT)Only the most recent of10 resultswithin the time period is included. Protein, Total 6.7Comment: Specimen 6.0 - 8.3 gm/dL [facility] slightly hemolyzed [facility] Albumin 2.1 (L)Comment: Specimen 3.5 - 5.0 g/dL [facility] slightly hemolyzed [facility] Alkaline Phosphatase 202 (H) 40 - 150 U/L [facility] Total Bilirubin 1.2Comment: Specimen 0.2 - 1.2 mg/dL [facility] slightly hemolyzed [facility] Sodium 142 136 - 145 meq/L [facility] Potassium 4.4Comment: Specimen 3.5 - 5.1 meq/L [facility] slightly hemolyzed [facility] Chloride 107 98 - 107 meq/L [facility] CO2 30 (H) 22 - 29 meq/L [facility] BUN 25 (H) 7 - 21 mg/dL [facility] Creatinine 0.76Comment: Specimen 0.57 - 1.25 mg/dL [facility] slightly hemolyzed [facility] Glucose 108 (H) 70 - 105 mg/dL [facility] Calcium 7.9 (L) 8.4 - 10.2 mg/dL [facility] AST 77 (H)Comment: Specimen 5 - 34 U/L [facility] slightly hemolyzed [facility] ALT 86 (H)Comment: Specimen 6 - 55 U/L [facility] slightly hemolyzed [facility] EGFR 103Comment: ESTIMATED mL/min/1.73 sq [facility] GFR IS NOT ACCURATE [facility] CREATININE CLEARANCE IN PREDICTING GLOMERULAR FILTRATION RATE. ESTIMATED GFR IS NOT APPLICABLE FOR DIALYSIS PATIENTS. Specimen Blood Narrative Performed At [employer] Employee ID - ELISSA M [facility] Performing Organization Address City/State/Zipcode Phone Number [address] [address] [place] Potassium (06/05/2019 4:31 PM CDT)Only the most recent of2 resultswithin the time period is included. Potassium 3.9 3.5 - 5.1 meq/L [facility] Specimen Blood Narrative Performed At [employer] Employee ID - BS [facility] Performing Organization Address City/State/Zipcode Phone Number [address] [address] [place] Basic Metabolic Panel (06/05/2019 6:01 AM CDT)Only the most recent of74 results within the time period is included. Sodium 145 136 - 145 meq/L [facility] Potassium 3.0 (L) 3.5 - 5.1 meq/L [facility] Chloride 101 98 - 107 meq/L [facility] CO2 38 (H) 22 - 29 meq/L [facility] BUN 28 (H) 7 - 21 mg/dL [facility] Creatinine 0.87 0.57 - 1.25 mg/dL [facility] Glucose 110 (H) 70 - 105 mg/dL [facility] Calcium 7.9 (L) 8.4 - 10.2 mg/dL [facility] EGFR 88Comment: ESTIMATED GFR IS mL/min/1.73 sq m [facility] NOT ACCURATE CREATININE [facility] CLEARANCE IN PREDICTING GLOMERULAR FILTRATION RATE. ESTIMATED GFR IS NOT APPLICABLE FOR DIALYSIS PATIENTS. Specimen Blood Narrative Performed At [employer] Employee ID - PIAYA L [facility] Performing Organization Address City/State/Zipcode Phone Number [place] [phone] [place] [address] [facility] esoph swallow funct with cine video (06/04/2019 [...] MD Report Verified Date/Time:06/04/2019 15:08:42 Reading Location: [address] Reading Room Procedure Note Interface, External [...] Verified Date/Time: 06/04/2019 1 5:08:42 Reading Location: [facility] [id number] [facility] Reading Room Performing Organization Address City/State/Zipcode Phone Number GE RIS CBC with platelet count + automated diff (06/04/2019 5:15 AM CDT)Only the most recent of56 resultswithin the time period is included. WBC 13.3 (H) 3.5 - 10.5 K/L [facility] RBC 4.12 (L) 4.63 - 6.08 M/L [facility] Hemoglobin 10.8 (L) 13.7 - 17.5 GM/DL [facility] Hematocrit 35.6 (L) 40.1 - 51.0 % [facility] MCV 86.4 79.0 - 92.2 fL [facility] MCH 26.2 25.7 - 32.2 pg [facility] MCHC 30.3 (L) 32.3 - 36.5 GM/DL [facility] RDW 20.1 (H) 11.6 - 14.4 % [facility] EMERGENCY DEPARTMENT Platelets 240 150 - 450 K/CU MM [facility] MPV 12.3 9.4 - 12.[address] [facility] EMERGENCY DEPARTMENT nRBC 0 0 - 0 /[address] [facility] EMERGENCY DEPARTMENT % Neutros 71 % [facility] EMERGENCY DEPARTMENT % Lymphs 16 % [facility] EMERGENCY DEPARTMENT % Monos 9 % [facility] % Eos 3 % [facility] % Baso 1 % [facility] # Neutros 9.45 (H) 1.78 - 5.38 K/L [facility] # Lymphs 2.08 1.32 - 3.57 K/L [facility] # Monos 1.24 (H) 0.30 - 0.82 K/L [facility] # Eos 0.43 0.04 - 0.54 K/L [facility] # Baso 0.07 0.01 - 0.08 K/L [facility] Immature Granulocytes-Relative 0 0 - 1 % C HI [facility] Specimen Blood Performing Organization Address City/State/Zipcode Phone Number [facility] [address] [place] [address] [place] US abdomen limited (06/04/2019 2:10 AM CDT)Only the most recent of2 results within the time period is included. Specimen Narrative Performed At FINAL REPORT [facility] History: Elevated LFTs Abdominal ultrasound dated 06/04/2019 [...] Date/Time: 06/04/2019 0 4:00:37 Performing Organization Address [facility] Phone Number RIS Ammonia (06/03/2019 2:56 PM CDT)Only the most recent of2 resultswithin the time period is included. Ammonia 82 (H) 18 - 72 mol/L [facility] Specimen Blood Narrative Performed At [employer] Employee ID - BS [facility] Performing Organization Address [facility] Phone Number [facility] MEDICAL [address] [place] [address] CENTER Magnesium (06/03/2019 5:25 AM CDT)Only the most recent of55 resultswithin the time period is included. Magnesium 2.2Comment: Specimen slightly 1.6 - 2.6 mg/dL [facility] I [facility] hemolyzed [facility] Specimen Blood Narrative Performed At [employer] Employee ID - BS [facility] Performing Organization Address City/State/Zipcode Phone Number [facility] [address] [place] [address] CENTER Blood gas, arterial (06/02/2019 8:15 AM CDT)Only the most recent of23 results within the time period is included. pH, Arterial 7.57 (H) 7.35 - 7.45 [facility] pCO2, Arterial 50 (H) 35 - 45 mmHg [facility] pO2, Arterial 68 (L) 80 - 90 mmHg [facility] O2 Sat, Arterial 95.6 (L) 96.0 - 97.0 % [facility] HCO3, Arterial 45 (HH) 21 - 29 mmol/L [facility] Base Excess, Arterial 20.4 (H) -2.0 - 3.0 mmol/L [facility] Patient Temperature 36.7 C [facility] FIO2 21.0 % [facility] Specimen Blood, Arterial Performing Organization Address City/[facility] Phone Number [facility] [address] [place] [address] [place] Vancomycin level, trough (06/02/2019 1:24 AM CDT)Only the most recent of5 resultswithin the time period is included. Vancomycin Tr 32.2 (HH) 10.0 - 20.0 ug/mL [facility] Specimen Blood Narrative Performed At [employer] Employee ID - SANDRA Richards [facility] Performing Organization Address City/State/Zipcode Phone Number [place] [phone] [place] [address] [place] ECHOCARDIOGRAM REPORT - SCAN (06/01/2019 9:20 PM CDT) Narrative Performed At This result has an attachment that is no t available. 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 Isael Middleton [employer] Box [employer]ic Aliya Yee Interpreting Stephan Conklin MD Procedure [...] of Study 06/01/2019 Gender Male Visit Number [id number] Race Unknown [facility] C724 Number Date of 1955 Referri Physician Ole Dominguez MD Age 63 year(s) 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 Result No MRSA isolated [facility] Specimen Nasal Performing Organization Address City/[facility] Phone Number [address] [address] CENTER Phosphorus (06/01/2019 10:46 AM CDT)Only the most recent of48 resultswithin the time period is included. Phosphorus 4.3 2.3 - 4.7 mg/dL [facility] Specimen Blood Narrative Performed At [employer] Employee ID - CAROLINA F [facility] Performing Organization Address [facility] Phone Number [address] [address] CENTER Prothrombin time/INR (05/31/2019 10:31 AM CDT)Only the most recent of9 results within the time period is included. Protime 17.8 (H) 11.9 - 14.2 seconds [facility] INR 1.5 <=5.9 [facility] Specimen Blood Narrative Performed At Effective 07/24/2018: PT Reference Range [facility] Change New: 11.9-14.2Previous: 11.7-14.7 RECOMMENDED COUMADIN/WARFARIN INR THERAPY RANGES STANDARD DOSE: 2.0-3.0Includes: PROPHYLAXIS for venous thrombosis, systemic embolization; TREATMENT for venous thrombosis and/or pulmonary embolus. HIGH RISK: Target INR is 2.5-3.5 for patients wiht mechanical heart valves. Performing Organization Address City/State/Zipcode Phone Number [address] [address] CENTER Hepatitis panel, acute (05/31/2019 8:24 AM CDT) Hep A IgM Reactive (A) Nonreactive [facility] Hep B C IgM Nonreactive Nonreactive [facility] Hepatitis C Ab Nonreactive Nonreactive [facility] HBsAg Screen Nonreactive Nonreactive [facility] Specimen Blood Narrative Performed At [employer] Employee ID - SONIA Lloyd [facility] Performing Organization Address City/[facility] Phone Number [address] [address] CENTER B-type Natriuretic Factor (BNP) (05/31/2019 8:23 AM CDT)Only the most recent of 4 resultswithin the time period is included. BNP 1,536 (H) 0 - 100 pg/mL [facility] Specimen Blood Narrative Performed At [employer] Employee ID - ALMA Richards [facility] Performing Organization Address City/[facility] Phone Number [address] [address] CENTER Vancomycin level, random (05/31/2019 8:23 AM CDT)Only the most recent of2 resultswithin the time period is included. Vancomycin Rm 18.6 ug/mL [facility] Specimen Blood Narrative Performed At Reference Range: No Normals [facility] [employer] Employee ID - ALMA Richards Performing Organization Address City/State/Zipcode Phone Number [facility] [address] [place] [address] [place] Blood Culture - Routine (Right Venipuncture) (05/31/2019 8:22 AM CDT)Only the most recent of8 resultswithin the time period is included. Result No growth in 5 days [facility] Specimen Blood Performing Organization Address [facility] Phone Number [facility] [address] [place] [address] [place] ECG 12 lead (05/31/2019 7:21 AM CDT)Only the most recent of9 resultswithin the time period is included. Specimen Narrative Performed At Ventricular Rate 83 BPM GE MUSE Atrial Rate 76 BPM QRS Duration 122 ms Q-T Interval 376 ms QTC Calculation(Bazett) 441 ms R [place] 9 degrees T [place] 168 degrees Atrial fibrillation Left ventricular hypertrophy [...] 376 ms QTC Calculation(Bazett) 441 ms R [place] 9 degrees T [place] 168 degrees Atrial fibrillation Left ventricular hypertrophy with QRS wi dening Nonspecific ST and T wave abnormality Abnormal ECG When compared with ECG of 30-MAY-2019 19 :25, No significant change was found Confirmed by MD YO YOCHAI ([id number]) on 06/02/2019 7:02:10 AM Performing Organization Address City/[facility]/Zipcode Phone Number GE MUSE Urea Nitrogen, random urine (05/31/2019 3:26 AM CDT)Only the most recent of2 resultswithin the time period is included. Urea Nitrogen, Ur 332 mg/dL [facility] Specimen Urine Narrative Performed At Reference Range: No Normals [facility] [employer] Employee ID - PIAYA L Performing Organization Address [facility] Phone Number [address] [address] [place] Sodium, random urine (05/31/2019 3:26 AM CDT)Only the most recent of2 results within the time period is included. Sodium Urine 59 meq/L [facility] Specimen Urine Narrative Performed At Reference Range: No Normals [facility] [employer] Employee ID - PIAYA L Performing Organization Address [facility] Phone Number [address] [address] [place] Creatinine, random urine (05/31/2019 3:26 AM CDT)Only the most recent of2 resultswithin the time period is included. Creatinine, Ur 24.9 mg/dL [facility] Specimen Urine Narrative Performed At Reference Range: No Normals [facility] [employer] Employee ID - PIAYA L Performing Organization Address [facility] Phone Number [address] [address] [place] XR chest 1 view portable / bedside (05/30/2019 9:03 PM CDT)Only the most recent of44 resultswithin the time period is included. Specimen Narrative Performed At FINAL REPORT [facility] History: Right-sided effusion noted on o utside [...] 2:00:23 Performing Organization Address City/State/Zipcode Phone Number [facility] XR chest 2 views (05/08/2019 12:14 PM CDT) Specimen Narrative Performed At FINAL REPORT [facility] EXAMINATION: PA and lateral views of the [...] Verified Date/Time: 05/09/2019 0 8:51:36 Reading Location: [employer] Rad Reading Dennise wallace 1 - B01.627 Performing Organization Address City/[facility] Phone Number GE RIS Prealbumin (04/23/2019 3:53 AM APRON WORKER) Prealbumin 7 (L) 14 - 45 mg/dL [facility] Specimen Blood Narrative Performed At [employer] Employee ID - ELISSA Wallace [facility] Performing Organization Address City/[facility]/Zipcode Phone Number [address] [address] [place] TRANSFUSION SERVICE REPORT - SCAN (04/19/2019 6:02 PM APRON WORKER)Only the most recent of6 resultswithin the time period is included. Narrative Performed At This result has an attachment that is no t available. Prepare Leuko-Red RBC (04/18/2019 11:54 PM APRON WORKER)Only the most recent of6 results within the time period is included. CROSSMATCH COMPATIBLE SAFETRACE TX Unit ABO A Neg [facility] [place] UNIT NUMBER [id number] SAFETRACE TX Status TX_TIMEINCHART [facility] [place] Blood Bank Product RED BLOOD CELLS [place] PRODUCT CODE [id number] [place] Specimen Other Performing Organization Address [facility] Phone Number SAF[place]ACE [place] Transfuse Leuko-Red RBC (04/17/2019 11:41 AM APRON WORKER)Only the most recent of14 resultswithin the time period is included.aPTT (04/17/2019 3:30 AM APRON WORKER)Only the most recent of40 resultswithin the time period is included. PTT 41.6 (H) 22.5 - 36.0 seconds [facility] Specimen Blood Performing Organization Address [facility] Phone Number [address] [address] [place] Hemoglobin and hematocrit (04/17/2019 12:27 AM APRON WORKER)Only the most recent of2 resultswithin the time period is included. Hemoglobin 7.7 (L) 13.7 - 17.5 GM/DL [facility] Hematocrit 23.6 (L) 40.1 - 51.0 % [facility] Specimen Blood Narrative Performed At [employer] Employee ID - [id number] [facility] Performing Organization Address [facility]/Zipcode Phone Number [address] [address] [place] Prepare plasma (04/16/2019 11:54 PM APRON WORKER) Unit ABO A Pos [place] UNIT NUMBER [id number] SAFETRACE TX Status TX_TIMEINCHART [facility] Blood Bank Product FFP SAF[place]ACE [place] PRODUCT CODE [id number] [place] Specimen Blood Performing Organization Address [facility] Phone Number [place] Prepare cryoprecipitate (04/16/2019 11:54 PM APRON WORKER) Unit ABO A Pos [place] UNIT NUMBER [id number] SAFETRACE TX Status TX_TIMEINCHART [facility] Blood Bank Product CRYOPRECIPITATE [place]AF[place] PRODUCT CODE [id number] [place] Specimen Blood Performing Organization Address City/[facility] Phone Number [place] PERIPHERAL VASCULAR REPORT - SCAN (04/16/2019 9:23 PM APRON WORKER) Narrative Performed At This result has an attachment that is no t available. Calcium, Ionized (04/16/2019 3:28 AM APRON WORKER)Only the most recent of6 resultswithin the time period is included. Calcium, Ion 1.09 (L) 1.12 - 1.27 mmol/L [facility] pH, Blood 7.44 [facility] Specimen Blood Performing Organization Address City/[facility] Phone Number [facility] [address] [place] [address] CENTER Central Line (04/15/2019 5:48 PM APRON WORKER) Narrative Performed At Enoch Chung NP [...] verify the correct patient, procedure, equipmen t, manager client support and site/side marked as required. Indications: vascular [...] Venous doppler arm, left (04/15/2019 11:30 AM APRON WORKER) [facility] ECHO [facility] Specimen Impressions Performed At [facility] ECHO HEARTLAB MKCKESSON [facility] Left Impression 1. There is total deep [...] Upper Extremities Veins [facility] ECHO HEARTLAB [facility] Demographics Patient Name JOHN VERGARA Date of Study04/15/2019 [id number] Visit Number [id number] Gender Male Accession Number [id number] Date of Birth1955 [facility] Room [id number] TANIA Patten SonographerAidee Ruggiero, RVTInterpreting Alyssa Cabrera [...] External Ris In - 04/16/2019 10:57 AM APRON WORKER PV LAB - Upper Extremities Veins Demographics Patient Name JOHN VERGARA ate of Study 04/15/2019 A [employer] 63 Visit Number [id number] G amalia Male Accession Number [id number] D ate of 1955 Referring Alicia howard Number [id number] Physician TANIA Mccracken Medical Staffing Coordinator Aidee Ruggiero, RVT I nterpreting Pearl Cabrera [...] City/State/Zipcode Phone Number [facility] ECHO HEARTLAB [facility] Thromboelastograph (TEG) (04/15/2019 11:28 AM APRON WORKER) TEG Activated Clotting Time 5.0 4.0 - 7.0 minutes [facility] TEG Fibrinogen Activity 75.9 (H) 61.0 - 73.0 degrees [facility] TEG Platelet Aggregation 69.6 (H) 55.0 - 65.0 MM [facility] TEG Fibrinolysis 0.1 0.0 - 5.0 % [facility] TEG-H Activated Clotting Time 5.1 4.0 - 7.0 minutes [facility] TEG-H Fibrinogen Activity 76.0 (H) 61.0 - 73.0 degrees [facility] TEG-H Platelet Aggregation 65.7 (H) 55.0 - 65.0 MM [facility] TEG-H Fibrinolysis 4.1 0.0 - 5.0 % [facility] Specimen Blood Performing Organization Address City/[facility]/Zipcode Phone Number [facility] [address] [place], [place] [phone] CENTER Transfuse plasma (04/15/2019 11:03 AM APRON WORKER)Only the most recent of2 resultswithin the time period is included.Transfuse cryoprecipitate (04/15/2019 9:22 AM APRON WORKER) Only the most recent of2 resultswithin the time period is included.Lactic Acid, Arterial (04/15/2019 4:05 AM APRON WORKER) Lactate, Art 1.2 0.5 - 2.2 mmol/L [facility] Specimen Blood, Arterial Narrative Performed At [employer] Employee ANGELI Wallace [facility] Performing Organization Address [facility] Phone Number [facility] [address] [place] [address] CENTER PT/aPTT (04/15/2019 1:58 AM APRON WORKER)Only the most recent of4 resultswithin the time period is included. Protime 19.8 (H) 11.9 - 14.2 seconds [facility] INR 1.7 <=5.9 [facility] PTT 41.1 (H) 22.5 - 36.0 seconds [facility] Specimen Blood Narrative Performed At Effective 07/24/2018: PT Reference Range [facility] Change New: 11.9-14.2Previous: 11.7-14.7 RECOMMENDED COUMADIN/WARFARIN INR THERAPY RANGES STANDARD DOSE: 2.0-3.0Includes: PROPHYLAXIS for venous thrombosis, systemic embolization; TREATMENT for venous thrombosis and/or pulmonary embolus. HIGH RISK: Target INR is 2.5-3.5 for patients wiht mechanical heart valves. Performing Organization Address City/[facility] Phone Number [facility] [address] [address] [place] Fibrinogen (04/15/2019 1:58 AM APRON WORKER)Only the most recent of2 resultswithin the time period is included. Fibrinogen 177 (L) 225 - 434 mg/dl [facility] Specimen Blood Performing Organization Address [facility] Phone Number [address] [address] [place] Cortisol (04/15/2019 12:07 AM APRON WORKER) Cortisol, Total 10.6 3.7 - 19.4 ug/dL [facility] Specimen Blood Narrative Performed At [employer] Employee ID - BS [facility] Performing Organization Address [facility] Phone Number [address] [address] [place] AFB culture + smear (non-sputum) (04/14/2019 6:48 PM APRON WORKER)Only the most recent of10 resultswithin the time period is included. Result No acid-fast bacilli isolated in [facility] 42 days CENTER AFB Smear No acid fast bacilli seen [facility] Specimen BAL Performing Organization Address [facility] Phone Number [address] [address] [place] Fungus culture + smear (04/14/2019 6:48 PM APRON WORKER)Only the most recent of11 resultswithin the time period is included. Result <1+ Ana albicans (A) [facility] Fungus Smear No fungi seen [facility] Specimen BAL Performing Organization Address [facility] Phone Number [address] [address] [place] SPIN/CONCENTRATION CHARGE (04/14/2019 6:48 PM APRON WORKER)Only the most recent of4 resultswithin the time period is included. Concentration charged Done [facility] Specimen BAL Performing Organization Address City/[facility] Phone Number [address] [address] [place] Bronchial culture + gram stain (04/14/2019 6:48 PM APRON WORKER)Only the most recent of3 resultswithin the time period is included. Result No growth [facility] Gram Stain Result 1+ WBCs [facility] Gram Stain Result No organisms seen [facility] Specimen BAL Performing Organization Address [facility] Phone Number [address] [address] [place] Potassium-Stat Lab (04/14/2019 5:49 PM APRON WORKER)Only the most recent of3 results within the time period is included. Potassium 3.4 (L) 3.6 - 5.5 meq/L [facility] Specimen Blood, Arterial Performing Organization Address [facility] Phone Number [address] [address] [place] Sodium Na-Stat Lab (04/14/2019 5:49 PM APRON WORKER)Only the most recent of3 results within the time period is included. Sodium 138 135 - 148 meq/L [facility] Specimen Blood, Arterial Performing Organization Address City/[facility] Phone Number [address] [address] [place] Glucose-Stat Lab (04/14/2019 5:49 PM APRON WORKER)Only the most recent of3 resultswithin the time period is included. Glucose 100 70 - 110 mg/dL [facility] Specimen Blood, Arterial Performing Organization Address City/[facility]/Zipcode Phone Number [address] [address] [place] HGB/HCT (H&H)-Stat Lab (04/14/2019 5:49 PM APRON WORKER)Only the most recent of3 resultswithin the time period is included. Hemoglobin 9.0 (L) 13.0 - 16.8 g/dL [facility] Hematocrit 26.0 (L) 40.0 - 50.0 % [facility] Specimen Blood, Arterial Performing Organization Address [facility] Phone Number [address] [address] [place] Anaerobic culture (04/14/2019 5:15 PM APRON WORKER)Only the most recent of5 results within the time period is included. Result No anaerobes isolated [facility] Specimen Tissue Performing Organization Address [facility] Phone Number [address] [address] [place] Surgically obtained culture + gram stain (04/14/2019 5:15 PM APRON WORKER)Only the most recent of5 resultswithin the time period is included. Result No growth [facility] Gram Stain Result 1+ WBCs [facility] Gram Stain Result No organisms seen [facility] Specimen Tissue Performing Organization Address [facility] Phone Number [address] [address] [place] Tissue Exam (04/14/2019 4:54 PM APRON WORKER) Case Report Surgical Pathology Report Case: [id number] [facility] Authorizing Provider:Fernando Esquivel MD Collected: 04/14/[address] [place] [address] Ordering Location: [facility] Received:04/15/2019 0933 PERIOPERATIVE SERVICES Pathologist: Gay Puentes MD Specimens: A) - Pleura, PARIETAL PLEURA B) - Lung, Right Lower Lobe, Right lower lobe C) - Lung, Right Middle Lobe, Right middle lobe D) - Lung, Right Upper Lobe, Right upper lobe DIAGNOSIS [facility] A. PLEURA, RIGHT, PARIETAL PLEURA, DECORTICATION : [facility] - CHRONIC FIBROSING PLEURITIS. - NEGATIVE [...] STIC ALTERATION. Signing Pathologist Direct Phone Line: [phone] CPT Code(s) 65645 X 4 [facility] HE ALTH [facility] CLINICAL HISTORY Empyema, right. [facility] H EALTH [facility] SPECIMEN SOURCE A. Pleura. B. Lung, right [facility] lower lobe. C. Lung, right [facility] middle lobe. D. Lung, right upper lobe GROSS DESCRIPTION A. Received in formalin labe led with the patient's name, accession number and "parietal pleura" is a 1.5 x 0.8 x 0.1 cm portion of devlin- pink fibromembranous tissue, which is entirely submitted in A1. [facility] ER B. Received in formalin labe led [...] submitted in D1. PA/ew MICROSCOPIC DESCRIPTION Performed. [facility] Gross assessment was [facility] performed at [place], Department of [facility] Pathology, [address] [place] [address], Technical component was [facility] performed at [place], Department of [facility] Pathology, [address] [place] [address], Professional component [facility] was performed at [place], Department of [facility] Pathology, [address] [place] [address], Specimen Tissue Tissue - Structure of lower lobe of righ t lung (body structure) Tissue - Structure of middle lobe of rig ht lung (body structure) Tissue - Structure of upper lobe of righ t lung (body structure) Performing Organization Address City/State/Zipcode Phone Number [address] [address] [place] Cytology (04/14/2019 3:48 PM APRON WORKER)Only the most recent of2 resultswithin the time period is included. Case Report Medical Cytology Report Case: [id number] [facility] Authorizing Provider:Fernando Esquivel MD Collected: 04/14/2019 1548 [facility] Ordering Location: [facility] Received:04/15/2019 0913 [facility] Pathologist: Sean Piedra MD Specimen:Pleural, Ri ght, Multi loculated pleural effusions DIAGNOSIS RIGHT PLEURAL FLUID (CYTOSPINS): [facility] - NEGATIVE FOR MALIGNANCY [facility] PREDOMINANTLY BLOOD Signing Pathologist Direct Phone Line: CPT Code(s) 74802 [facility] CLINICAL DATA Right multi loculated [facility] pleural effusions, [facility] pneumonia, acute respiratory failure SPECIMEN SOURCE RIGHT PLEURAL FLUID [facility] GROSS DESCRIPTION 750 mls bloody; 4 cytospins [facility] Collected: [id number] [facility] NTER Received: [id number] STATEMENT OF ADEQUACY Satisfactory [facility] ER Gross assessment was [facility] performed at [place], Department of [facility] Pathology, [address] [place] [address], Technical component was [facility] performed at [place], Department of [facility] Pathology, [address] [place] [address], Professional component was [facility] performed at [place], Department of [facility] Pathology, [address] [place] [address], Specimen Body Fluid Narrative Performed At This result has an attachment that is no t available. Performing Organization Address City/[facility] Phone Number [address] [address] CENTER Type and screen, automated (04/14/2019 1:01 AM APRON WORKER)Only the most recent of2 resultswithin the time period is included. ABO/RH AUTOMATED (BEAKER) A NEGATIVE [facility] Ab Scrn NEGATIVE [facility] Specimen Blood Performing Organization Address City/[facility] Hospitalcode Phone Number [address] [address] Hepatic function panel (04/13/2019 4:39 AM APRON WORKER)Only the most recent of3 results within the time period is included. Protein, Total 5.5 (L) 6.0 - 8.3 gm/dL [facility] Albumin 1.8 (L) 3.5 - 5.0 g/dL [facility] Total Bilirubin 1.1 0.2 - 1.2 mg/dL [facility] Bilirubin, Direct 0.7 (H) 0.1 - 0.5 mg/dL [facility] Alkaline Phosphatase 157 (H) 40 - 150 U/L [facility] AST 38 (H) 5 - 34 U/L [facility] ALT 34 6 - 55 U/L [facility] Specimen Blood Narrative Performed At [employer] Employee ID - CHELSEY [facility] Performing Organization Address City/[facility]/Zipcode Phone Number [facility] [address] [place] [address] CENTER REPORT OF PROCEDURE - ENDOSCOPY URL (04/11/2019 10:15 AM APRON WORKER) Narrative Performed At This result has an attachment that is no t available. Body fluid culture + gram stain (04/09/2019 12:10 PM APRON WORKER)Only the most recent of 4 resultswithin the time period is included. Result No growth [facility] Gram Stain Result <1+ WBCs [facility] Gram Stain Result <1+ gram negative rods [facility] Specimen Body Fluid Performing Organization Address City/[facility]/Zipcode Phone Number [address] [address] CENTER XR abdomen / KUB 1 view (04/04/2019 3:58 PM APRON WORKER)Only the most recent of4 resultswithin the time period is included. Specimen Narrative Performed At FINAL REPORT GE RIS Abdomen date 04/04/2019 Comment:Frontal view of the abdomen demonstrates a feeding tube present with tip noted in the descending duodenum. Signed: Tomasa Foss MD Report Verified Date/Time:04/04/2019 18:03:16 Reading Location: [facility] C013W [facility] Procedure Note Interface, External Ris In - 04/04/2019 6:05 PM APRON WORKER FINAL REPORT Abdomen date 04/04/2019 Comment: Frontal view of the abdomen de monstrates a feeding tube present with tip noted in the descending duodenum. Signed: Tomasa Foss MD Report Verified Date/Time: 04/04/2019 1 8:03:16 Reading Location: [facility] C013W [facility] Performing Organization Address City/State/Zipcode Phone Number GE RIS Troponin I (03/31/2019 1:59 PM APRON WORKER)Only the most recent of11 resultswithin the time period is included. Troponin I 0.20 (HH) 0.00 - 0.03 ng/mL [facility] Specimen Blood Narrative Performed At Troponin I (TnI) levels must be interpreted [facility] in the context of the presenting symptoms and the clinical findings. Elevated TnI levels indicate myocardial damage, but are not specific for ischemic heart disease. Elevated TnI levels are seen in patients with other cardiac conditions (including myocarditis and congestive heart failure), and slight TnI elevations occur in patients with other conditions, including sepsis, renal failure, acidosis, acute neurological disease, and persistent tachyarrhythmia. [employer] Employee ID - SONIA Lloyd Performing Organization Address City/[facility]/[place] [address] [place] Lactic acid, venous (03/31/2019 1:59 PM APRON WORKER)Only the most recent of5 results within the time period is included. Lactate, Venous 1.7 0.5 - 2.2 mmol/L [facility] Specimen Blood Narrative Performed At [employer] Employee ID - SONIA Lloyd [facility] Performing Organization Address City/[facility]/Zipcode Phone Number [address] [address] chest for pulmonary embolus (03/30/2019 11:54 PM APRON WORKER) Specimen Narrative Performed At FINAL REPORT [...] This exam was performed according to the [facility] dose optimization program which [...] External Ris In - 03/31/2019 12:29 AM APRON WORKER FINAL REPORT Comparison: CT chest dated [...] This exam was performed according to the [facility] dose optimization program which [...] 0:25:44 Performing Organization Address City/State/Zipcode Phone Number [facility] CT brain without IV contrast (03/30/2019 11:54 PM APRON WORKER)Only the most recent of2 resultswithin the time period is included. Specimen Narrative Performed At FINAL REPORT [facility] EXAM: CT, BRAIN, WITHOUT CONTRAST CLINICAL INDICATION: [...] External Ris In - 03/31/2019 4:22 AM APRON WORKER FINAL REPORT EXAM: CT, BRAIN, WITHOUT [...] 4:20:24 Performing Organization Address City/State/Zipcode Phone Number [facility] POCT-HEMATOCRIT (03/30/2019 8:53 PM APRON WORKER) POC-Hematocrit 28 (L)Comment: TESTED AT 40 - 50 % [address] [facility] [address] Specimen Blood Performing Organization Address City/[facility]/Zipcode Phone Number [address] [address] [place] POCT-HEMOGLOBIN (03/30/2019 8:53 PM APRON WORKER) POC-Hemoglobin 9.5 (L)Comment: TESTED AT 13.0 - 16.8 g/dL [address] [place] [address]E[place]UC AT [address] [address] Specimen Blood Performing Organization Address [facility] Phone Number [address] [address] [place] POCT-GLUCOSE (03/30/2019 8:53 PM APRON WORKER) POC-Glucose 249 (H)Comment: TESTED AT 70 - 110 mg/dL [address] [address] Specimen Blood Performing Organization Address [facility] Hospitalconc Phone Number [address] [address] [place] POC-Sodium (03/30/2019 8:53 PM APRON WORKER) POC-Sodium 147Comment: TESTED AT [facility] 135 - 148 meq/L [address] [address] Specimen Blood Performing Organization Address City/[facility] Phone Number [address] [address] CENTER POC-Potassium (03/30/2019 8:53 PM APRON WORKER) POC-Potassium 4.1Comment: TESTED AT [facility] 3.6 - 5.5 meq/L [address] [address] Specimen Blood Performing Organization Address City/[facility]/Zipcode Phone Number [address] [address] [place] POC-Calcium ionized (03/30/2019 8:53 PM APRON WORKER) POC-Calcium Ionized 1.63 ()Comment: 1.12 - 1.27 mmol/L [facility] TESTED AT [address] [address] Specimen Blood Performing Organization Address [facility]/Zipcode Phone Number [address] [address] [place] POC-Blood gases, arterial (03/30/2019 8:53 PM APRON WORKER) Temp. Celsius-POC 36.1 [facility] FIO2-POC 100Comment: TESTED AT [address] [address] pH, Arterial-POC 7.320 (L) 7.350 - 7.450 [facility] PCO2, Arterial-POC 61.8 (H) 35.0 - 45.0 mm Hg [facility] PO2, Arterial-POC 409.0 (H) 80.0 - 90.0 mm Hg [facility] SO2, Arterial-POC 100.0 (H) 96.0 - 97.0 % [facility] HCO3, Arterilal-POC 32.2 (H) 21.0 - 29.0 meq/L [facility] BE, Arterial-POC 6.0 (H) -2.0 - 3.0 meq/L [facility] Specimen Blood Performing Organization Address City/[facility]/Zipcode Phone Number [address] [address] [place] ECHOCARDIOGRAM REPORT - SCAN (03/26/2019 9:11 PM APRON WORKER) Narrative Performed At This result has an attachment that is no t available. IR Drainage Catheter Change (03/26/2019 7:30 PM APRON WORKER) Specimen Narrative Performed At FINAL REPORT [facility] Fluoroscopic guided replacement of a right chest tube. History: Patient's right chest tube has been retracted and is poorly draining.. Modality: Fluoroscopy Sedation: None Anesthesia:Two percent Lidocaine without epinephrine. Approach:Existing right chest tube Estimated blood loss:< 5 cc. Specimen: None. dye tub operator: Nato Dang MD. Supervisory Examiner: Lauren. Fluoroscopy Time: 0.5 min. Reference Air [...] ove r the guidewire. A new 8.5 [place]amese Cook multipurpose drainage cathet er was advanced [...] MD Report Verified Date/Time:03/28/2019 14:57:26 Reading Location: [place] [address] Angio Body Reading Room Procedure Note Interface, External Ris In - 03/28/2019 2:59 PM APRON WORKER FINAL REPORT Fluoroscopic guided replacement of a ri ght chest tube. History: Patient's right chest tube has been retracted and is poorly draining.. Modality: Fluoroscopy Sedation: None Anesthesia: Two percent Lidocaine witho ut epinephrine. Approach: Existing right chest tube Estimated blood loss: < 5 cc. Specimen: None. dye tub operator: Nato Dang MD. Supervisory Examiner: Lauren. Fluoroscopy Time: 0.5 min. Reference Air [...] ove r the guidewire. A new 8.5 [place] Cook multipurpose drainage cathet er was advanced [...] Verified Date/Time: 03/28/2019 1 4:57:26 Reading Location: [facility] B1 P048 Angio Body Reading Room Performing Organization Address City/State/Zipcode Phone Number [facility] 2D Echo W/Doppler(CW/PW/Color) (03/25/2019 7:04 PM APRON WORKER) Ejection Fraction [facility] ECHO HEAR TLAB MKCKReflexion HealthON CPA Specimen Narrative Performed At Transthoracic Echocardiography Report (T TE) [facility] ECHO HEARTLAB MKCKESSON CPACS Demographics Patient JOHN Valdes Date of Study03/25/2019 Gender Male Visit [id number] Race Luis Carlos tran [id number] Number Date of 1955 Referring PhysicianJerald Christensen [...] External Ris In - 03/26/2019 8:35 AM APRON WORKER Transthoracic Echocardiography Report (TTE) Demographics Patient Name JOHN VERGARA Date of Study 03/25/2019 Gender Male Visit Number [id number] Race Unknown Room [place] [address] Number Date of 1955 Refermatthias perdomo Physician [...] City/State/Zipcode Phone Number [facility] ECHO HEARTLAB MKCKESSON [facility] CT chest without IV contrast (03/25/2019 6:00 PM APRON WORKER)Only the most recent of2 resultswithin the time period is included. Specimen Narrative Performed At FINAL REPORT [facility] CT of the Chest, abdomen and pelvis [...] MD Report Verified Date/Time:03/25/2019 18:26:29 Reading Location: [facility] B1 C013Y CT Body R [facility] Procedure Note Interface, External Ris In - 03/25/2019 6:29 PM APRON WORKER FINAL REPORT CT of the Chest, [...] Verified Date/Time: 03/25/2019 1 8:26:29 Reading Location: [facility] B1 C013Y CT Body R eading Room Performing Organization Address City/State/Zipcode Phone Number GE PanelClaw CT abdomen/pelvis without iv contrast (03/25/2019 6:00 PM APRON WORKER) Specimen Narrative Performed At FINAL REPORT [facility] CT of the Chest, abdomen and pelvis [...] MD Report Verified Date/Time:03/25/2019 18:26:29 Reading Location: [facility] C013Y CT Body R eading Room Procedure Note Interface, External Ris In - 03/25/2019 6:29 PM APRON WORKER FINAL REPORT CT of the Chest, [...] Verified Date/Time: 03/25/2019 1 8:26:29 Reading Location: [facility] B1 C013Y CT Body R ding Room Performing Organization Address City/State/Zipcode Phone Number GE RIS Urinalysis w/Microscopic + Reflex to Culture (03/25/2019 9:08 AM APRON WORKER)Only the most recent of2 resultswithin the time period is included. Color, UA Yellow [facility] Clarity, UA Hazy [facility] Specific [place], UA 1.018 1.001 - 1.035 [facility] pH, UA 5.5 5.0 - 8.0 [facility] Protein, UA 50 mg/dL (A) Negative [facility] Glucose, UA Negative Negative [facility] Ketones, UA Negative Negative [facility] Bilirubin, UA Negative Negative [facility] Blood, UA Small (A) Negative [facility] Nitrite, UA Negative Negative [facility] Leukocytes, UA Large (A) Negative [facility] Urobilinogen, UA 6.0 (H) 0.2 - 1.0 mg/dL [facility] RBC, UA <1 /HPF [facility] WBC, UA 54 /HPF [facility] Bacteria, UA Few [facility] Mucus Few [facility] Squam Epithel, UA <1 /HPF [facility] Hyaline Casts, UA 1 /LPF [facility] Specimen Source [facility] Specimen Urine Narrative Performed At [employer] Employee ID - [auto] [facility] [employer] Employee ID - [email or web address] Performing Organization Address City/[facility]/Zipcode Phone Number [address] [address] [place] Sputum Culture + Gram Stain (03/25/2019 9:08 AM APRON WORKER)Only the most recent of2 resultswithin the time period is included. Result See comment [facility] Gram Stain Result 4+ WBCs [facility] Gram Stain Result 0-5 epithelial cells [facility] Gram Stain Result No organisms seen [facility] Specimen Sputum Narrative Performed At 2+ Yeast [facility] No Normal respiratory rigo present Performing Organization Address City/State/Zipcode Phone Number [address] [address] [place] Urine culture (03/25/2019 9:08 AM APRON WORKER)Only the most recent of2 resultswithin the time period is included. Result No growth [facility] Specimen Urine Performing Organization Address City/State/Zipcode Phone Number [facility] MEDICAL [address] [place] [address] CENTER EEG EXTENDED MONITORING 40 - 60 MINUTES (03/24/2019 11:23 AM APRON WORKER) Specimen Narrative Performed At Date(s) of EE03/24/2019 GE RIS DATE OF REPORT:03/24/2019 ACC: [id number] EEG Number: [id number] Test Location: Inpatient ICU Start time: 03/24/2019 10:42 Stop time: 03/24/2019 11:23 ICD-10: R56.9 CPT Code: 34563 HISTORY: 63 y.o. male with hypertens ion, diastolic heart failure, chronic kidney disease who was transferr ed to [facility] for effusions and remains altered [...] aftermath of ear lier seizure activity, other BOOM STICK WORKER insult, or toxic-metabolic derangeme nts. An EEG without epileptiform discharges does not exclude the possibili ty of epilepsy. If the clinical suspicion of epilepsy re spencer, consider additional EEG recordings. Nando eMtz MD Neurophysiology Fellow Elia Martinez M.D., FACDEB, FAAN, CALIN Syed Professor of Neurology, [facility] Medicine Director, [facility] Comprehensiv e Epilepsy Center Head, [facility] at [place], [place] Procedure Note Interface, External Ris In - 03/24/2019 12:32 PM APRON WORKER Date(s) of EE03/24/2019 DATE OF REPORT: 03/24/2019 ACC: [id number] EEG Number: [id number] Test Location: Inpatient ICU Start time: 03/24/2019 10:42 Stop time: 03/24/2019 11:23 ICD-10: R56.9 CPT Code: 54074 HISTORY: 63 y.o. male with hypertensio n, diastolic heart failure, chronic kidney disease who was transferr ed to [facility] for effusions and remains altered [...] aftermath of ear lier seizure activity, other BOOM STICK WORKER insult, or toxic-metabolic derangeme nts. An EEG without epileptiform discharges does not exclude the possibility of epilepsy. If the clinical suspicion of epilepsy re spencer, consider additional EEG recordings. Nando Metz MD Neurophysiology Fellow Elia Martinez M.D., FACNS, FAAN, CALIN S Professor of Neurology, [facility] Director, [facility] Epilepsy Center Head, [facility] at [place], [place] Performing Organization Address City/State/Zipcode Phone Number GE RIS Manual Differential (03/23/2019 5:58 AM APRON WORKER)Only the most recent of2 results within the time period is included. % Neutros 93 % [facility] % Lymphs 4 % [facility] % Monos 2 % [facility] % Atypical Lymphs 1 (H) 0 - 0 % [facility] # Neutros 22.69 (H) 1.78 - 5.38 K/ul [facility] # Lymphs 0.98 (L) 1.32 - 3.57 K/ul [facility] # Monos 0.49 0.30 - 0.82 K/uL [facility] # Atypical Lymphs 0.24 (H) 0.00 - 0.00 K/uL [facility] Total Counted 100 [facility] WBC Morphology Normal [facility] Platelet Morphology Normal [facility] Anisocytosis 1+ few [facility] Poikilocytes 1+ few [facility] Ovalocytes 1+ few [facility] [place] Cells 1+ few [facility] Artifact Present [facility] Platelet Conc Adequate [facility] Specimen Blood Narrative Performed At [employer] Employee ID - Mariela Overholt [facility] User comments: Slide comments: Performing Organization Address City/State/Zipcode Phone Number [facility] [address] [place] [address] CENTER Body fluid cell count with differential (03/22/2019 2:37 PM APRON WORKER)Only the most recent of3 resultswithin the time period is included. Appearance Bloody (A) Clear [facility] Color Red (A) Colorless, Straw [facility] RBCs 88,000 (H) <=1 /cu mm [facility] Adjusted WBC Count 36,367 (H) <=5 /cu mm [facility] Lining Cells 364 (H) <=1 /cu mm [facility] % Segs 85 % [facility] % Lymphs 4 % [facility] % Monos 10 % [facility] % Eos 1 % [facility]ENC[facility]PARTMENT % Baso 0 % [facility] Container Body Fluid EDTA Tube [facility] Specimen Body Fluid Performing Organization Address City/State/Zipcode Phone Number [facility] [address] [place] [address] CENTER Triglycerides, Pleural Fluid (03/22/2019 2:36 PM APRON WORKER)Only the most recent of3 resultswithin the time period is included. TRIGLYCERIDES, PLEURAL 35 See Note: mg/dL [facility] FL[facility] Comment: [facility]ATED Reference Range: CHYLOUS: >110 NONCHYLOUS:<50 SAMPLE SLIGHTLY LIPEMIC. SAMPLE MODERATELY HEMOLYZED. Specimen Body Fluid Narrative Performed At Performing Lab [facility] EZ [facility] [employer] [address] [address] [place] [address] Alia Luna MD, PhD, SOTO Performing Organization Address [facility] Number [facility] [employer] [address] INCORPORATED [address] [address] [employer] Protein, Total, Pleural Fluid (03/22/2019 2:36 PM APRON WORKER)Only the most recent of3 resultswithin the time period is included. PROTEIN, TOTAL, PLEURAL FLUID 2.6 [facility] Specimen Body Fluid Performing Organization Address [facility] [place] [address] INCOR[address]ATED [address] [address] [facility] Lactate Dehydrogenase (LD), Pleural Fluid (03/22/2019 2:36 PM APRON WORKER)Only the most recent of3 resultswithin the [...] Lab [facility] E[facility] [employer] [address] [address] [place] [address] Alia Luna MD, PhD, SOTO Performing Organization Address [facility] Phone Number [facility] [place] [address] INCORPORATED [address] [employer] Glucose Pleural Fluid (03/22/2019 2:36 PM APRON WORKER)Only the most recent of3 results within the time period is included. Glucose, Pleural Fluid 29 mg/dL [facility] Comment: INCORPORATED SAMPLE SLIGHTLY LIPEMIC. SAMPLE MODERATELY HEMOLYZED. Reference range approximates that found in serum . Specimen Body Fluid Narrative Performed At Performing Lab [facility]Z [address] [address] [place] [address] Alia Luna MD, PhD, SOTO Performing Organization Address City/[facility] Phone Number [facility] [employer] [place] [address] INCORPORATED [address] [facility] pH, body fluid (03/22/2019 2:36 PM APRON WORKER)Only the most recent of3 resultswithin the time period is included. pH, Body Fluid 7.5 [facility] PH FLUID TYPE Body fluid [facility] Comment: Reference range: Reference ranges have not been established on is type of fluid for this test. Specimen Body Fluid Narrative Performed At Performing Lab [facility] *RYLEY [employer] [place], [address] [place] [address] Dr. [place], [place] Pearl Kent MD, PhD Performing Organization Address [facility] Phone Number [facility] [place], [place] [address] INCORPORATED [address] [facility] Adenosine Deaminase, Fluid (03/22/2019 2:36 PM APRON WORKER)Only the most recent of2 resultswithin the [...] of this test have been determined by [facility], [place].This test s hould not be used for diagnosis without confirmation b y other medically established means. Specimen Body Fluid Narrative Performed At Performing Lab [facility] 15 [employer] [place], [address] [facility] [address] Guillen [place] Pearl Kent MD, PhD Performing Organization Address [facility] Hospital[facility] Phone Number [place] [address] INCORPORATED [address] [facility] Albumin Pleural Fluid (03/22/2019 2:35 PM APRON WORKER)Only the most recent of2 results within the time period is included. Albumin, Pleural Fluid 0.8 [facility] Specimen Body Fluid Performing Organization Address City/State/Zipcode Phone Number [facility], [place], [place] [address] INCORPORATED [address] [facility] Legionella culture (03/22/2019 2:32 PM APRON WORKER) Result No Legionella species isolated C HI [facility] Specimen BAL Performing Organization Address City/State/Zipcode Phone Number [place] [phone] [place] [address] CENTER US drainage chest with tube insertion (03/21/2019 6:25 PM APRON WORKER) Specimen Narrative Performed At FINAL REPORT [facility] Ultrasound guided insertion of bilatera l pigtail chest tube catheters. History: Bilateral loculated pleural effusions. Modality: Ultrasound Sedation: None Anesthesia:Two percent Lidocaine without epinephrine. Approach:Bilateral mid axillary line Estimated blood loss:< 5 cc. Specimen: Left bedside. dye tub operator: Nato Dang MD. Supervisory Examiner: None. Technique: Informed written consent was obtained. [...] a large loculated right pleural effusion. The [facility] axillary line was marked, prepped with correcting, draped in the u sual sterile fashion. After local anesthesia was achieved with lidoc tiera small skin incision was made along the right midaxillary line at a low intercostal space. Under direct ultrasound guidance an 8 [facility] skater pigtail drain was advanced into the [...] patient 's left chest and an 8 Surinamese skater pigtail drain was placed in a sim ilar fashion and connected to the atrium pleura. The patient tolerated the procedure well without evidence of immediate competition. Impression: Technically successful and uncomplicated placement of bilateral pigtail chest tubes under ultrasound guidance. Signed: Nato Dang MD Report Verified Date/Time:03/21/2019 19:48:47 Reading Location: [place] [address] Angio Body Reading Room Procedure Note Interface, External Ris In - 03/21/2019 7:50 PM APRON WORKER FINAL REPORT Ultrasound guided insertion of bilatera l pigtail chest tube catheters. History: Bilateral loculated pleural eff usions. Modality: Ultrasound Sedation: None Anesthesia: Two percent Lidocaine witho ut epinephrine. Approach: Bilateral mid axillary line Estimated blood loss: < 5 cc. Specimen: Left bedside. dye tub operator: Nato Dang MD. Supervisory Examiner: None. Technique: Informed written consent was obtained. D iscussion of risks, benefits, and alternatives were made with the ekvin ent's family. The patient's family expressed understanding [...] a large loculated right pleural effusion. The [facility] axillary line was marked, prepped with [...] patient 's left chest and an 8 Surinamese skater pigtail drain was placed in a sim ilar fashion and connected to the [facility]rium pleura. The patient tolerated the procedure well without evidence of immediate competition. Impression: Technically successful and uncomplicated placement of bilateral pigtail chest tubes under ultrasound es dance. Signed: Nato Dang MD Report Verified Date/Time: 03/21/2019 1 9:48:47 Reading Location: [facility] B1 P048 Angio Body Reading Room Performing Organization Address City/State/Zipcode Phone Number [facility] Respiratory Panel [facility] (03/21/2019 8:50 AM APRON WORKER) Human Metapneumovirus Not detected Not detected, [facility] [employer] [facility] Rhinovirus Not detected Not detected, [facility] Influenza A Not detected Not detected, [facility] INFLUENZA A (NO SUBTYPE) [facility] Influenza A subtype H1 [facility] Influenza A Subtype H3 [facility] Influenza A Subtype H1-2009 [facility] Influenza B Not detected Not detected, [facility] [employer] [facility] Respiratory Syncytial Virus Not detected Not detected, [facility] Equivocal [facility] Parainfluenza Virus 1 Not detected Not detected, [facility] Parainfluenza Virus 2 Not detected Not detected, [facility] [employer] [facility] Parainfluenza virus 3 Not detected Not detected, [facility] [employer] [facility] Parainfluenza Virus 4 Not detected Not detected, [facility] [employer] [facility] Adenovirus Not detected Not detected, [facility] Coronavirus 229E Not detected Not detected, [facility] Coronavirus HKU1 Not detected Not detected, [facility] [employer] [facility] Coronavirus NL63 Not detected Not detected, [facility] [employer] Coronavirus OC43 Not detected Not detected, [facility] [employer] [facility] Bordetella Pertussis Not detected Not detected, [facility] Chlamydophila Pneumoniae Not detected Not detected, [facility] [employer]ocal [facility] Mycoplasma Pneumoniae Not detected Not detected, [facility] [employer] [facility] Specimen Nasopharyngeal Narrative Performed At Other viruses and bacteria not targeted by [facility] this PCR panel cannot be excluded; therefore clinical correlation and follow up of serology, culture results, and other molecular studies is required. The results are not intended to be used as the sole means for clinical diagnosis or patient management decisions. This sample was tested at the [facility] using the [employer] FilmArray Respiratory Panel. It is FDA cleared and has been verified and approved by the [facility] for clinical use on nasopharyngeal swab specimens. The performance of the FilmArray RP has not been established in individuals who received influenza vaccine.Recent administration of a nasal influenza vaccine may cause false positive results for Influenza A and/or Influenza B. Performing Organization Address City/[facility] Phone Number [address] [address] CENTER Reticulocyte count (03/21/2019 8:50 AM APRON WORKER) % Retic 1.9 (H) 0.5 - 1.8 % [facility] Specimen Blood Narrative Performed At [employer] Employee ID - [id number] [facility] Performing Organization Address [facility]/Zipcode Phone Number [address] [address] [place] Rapid Influenza A&B Screen (03/21/2019 8:50 AM APRON WORKER) Rapid Influenza A Antigen Negative Negative, Inconclusive [facility] Rapid influenza B Antigen Negative Negative, Inconclusive [facility] Specimen Nasal Performing Organization Address City/[facility] Phone Number [address] [address] CENTER Vitamin B12 and Folate (03/21/2019 8:49 AM APRON WORKER)Only the most recent of2 results within the time period is included. Vitamin B12 >2000 (H) 213 - 816 pg/mL [facility] Folate 17.3 >=7.0 ng/mL [facility] Specimen Blood Narrative Performed At [employer] Employee ID - ELISSA Wallace [facility] Performing Organization Address [facility] Phone Number [address] [address] CENTER Iron, TIBC, % sat. (without ferritin) (03/21/2019 8:49 AM APRON WORKER) Iron 39.0 (L) 40.0 - 160.0 ug/dL [facility] TIBC 113 (L) 250 - 450 ug/dL [facility] Iron % Saturation 35 20 - 55 % [facility] Specimen Blood Narrative Performed At [employer] Employee ID - ELISSA Wallace [facility] Performing Organization Address City/[facility] Phone Number [address] [address] CENTER Lactate dehydrogenase (LDH) (03/21/2019 8:49 AM APRON WORKER) LDH 300 (H) 125 - 220 U/L [facility] Specimen Blood Narrative Performed At [employer] Employee ID - ELISSA Wallace [facility] Performing Organization Address City/[facility] Phone Number [address] [address] CENTER Ferritin (03/21/2019 8:49 AM APRON WORKER) Ferritin 1,076 (H) 5 - 275 ng/mL [facility] Specimen Blood Narrative Performed At [employer] Employee ID - ELISSA Wallace [facility] Performing Organization Address City/State/Zipcode Phone Number [address] [address] [place] ECHOCARDIOGRAM REPORT - SCAN (03/20/2019 9:22 PM APRON WORKER) Narrative Performed At This result has an attachment that is no t available. 2D Echo W/Doppler(CW/PW/Color) (03/20/2019 11:05 AM APRON WORKER) Ejection Fraction [facility] ECHO HEAR TLAB MKTwitty Natural ProductsON [facility] Specimen Narrative Performed At Transthoracic Echocardiography Report (T TE) [facility] ECHO HEARTLAB MKCKESSON [facility] Demographics Patient JOHN Valdes Date of Study03/20/2019 Gender Male Visit [id number] Race Unk nown [id number] Number Date of 1955 Referring Physician Age [...] severity assessment is unreliable . Aortic Valve Wirh-ek-znmthzmk AoV cusp calcification. Mi ld aortic stenosis. [...] External Ris In - 03/20/2019 3:29 PM APRON WORKER Transthoracic Echocardiography Report (TTE) Demographics Patient Name JOHN VERGARA Date of Study 03/20/2019 Gender Male Visit Number [id number] Race Unknown Room Num [facility] 7102 Number Date of 1955 Eileen perdomo Physician Age 63 year(s) Sonograp her [facility]hem [facility] Ziyad Bentley MD Physicia n Procedure Type [...] severity assessment is unreliable . Aortic Valve Ozco-me-velwkeyc AoV cusp calcification. Mild aortic sten osis. [...] T CI: 3.5 l/min/m^2 Performing Organization Address City/[facility]/Zipcode Phone Number [facility] ECHO HEARTLAB MKCKESSON CPACS ABORH, manual (03/20/2019 5:48 AM APRON WORKER) ABO Grouping A [facility] Rh Factor NEG [facility] Specimen Blood Performing Organization Address [facility] Phone Number [address] [address] TSH/Free T4 If Indicated (03/20/2019 3:00 AM APRON WORKER)Only the most recent of3 resultswithin the time period is included. TSH 3.06 0.35 - 4.94 uIU/mL [facility] Specimen Blood Narrative Performed At [employer] Employee ID - BS [facility] Performing Organization Address [facility] Phone Number [address] [address] CENTER Hemoglobin A1c (03/20/2019 3:00 AM APRON WORKER)Only the most recent of2 resultswithin the time period is included. Hemoglobin A1C 6.2 (H) 4.3 - 6.1 % [facility] Specimen Blood Performing Organization Address [facility] Phone Number [address] [address] CENTER Lipid panel (03/20/2019 2:59 AM APRON WORKER)Only the most recent of2 resultswithin the time period is included. Triglycerides 60Comment: Specimen slightly mg/dL [facility] hemolyzed MEDICAL [place] Cholesterol 55Comment: Specimen slightly mg/dL [facility] hemolyzed [facility] HDL 15 mg/dL [facility] LDL Calculated 28 mg/dL [facility] Specimen Blood Narrative Performed At Triglyceride Reference Range: [facility] Low Risk <150 [id number] High Risk 200-499 Very High Risk>=500 Cholesterol Reference Range: Low Risk <200 Bhrslftbil636-460 High Risk>240 HDL Cholesterol Reference Range: Low Risk >=60 High Risk <40 LDL Cholesterol Reference Range: Optimal<100 Near Bzrjzjf415-665 Qbowhoermd940-369 Ycnu656-999 Very High >=190 [employer] Employee ID - SANDRA Richards Specimen slightly icteric Performing Organization Address City/[facility]/Zipcode Phone Number [address] [address] CENTER Strep pneumoniae antigen (03/20/2019 2:23 AM APRON WORKER) Strep pneumoniae Presumptive negative Presumptive negative [facility] Antigen for pneumococcal for pneumococcal [facility] pneumonia - see comment pneumonia - see CENTER comment, Presumptive negative for pneumococcal meningitis - see comment Specimen Urine Narrative Performed At Presumptive negative for pneumococcal [facility] pneumonia, suggesting no current or recent pneumococcal infection. Infection due to S. pneumoniae cannot be ruled out since the antigen present in the sample may be below the detection limit of the test. Performing Organization Address City/[facility] Phone Number [address] [address] [place] Legionella antigen, urine (03/20/2019 2:23 AM APRON WORKER) Legionella Urine Antigen Negative - see [facility] commentComment: Negative [facility] for L. pneumophila serogroup 1 antigen, suggesting no recent or current infection with this serogroup. Legionellosis cannot be ruled out since other serogroups and species may cause disease. Specimen Urine Performing Organization Address City/[facility]/Zipcode Phone Number [address] [address] CENTER Protein, random urine (03/20/2019 2:22 AM APRON WORKER) Protein, Urine 72 (H) 0 - 14 mg/dL [facility] Specimen Urine Narrative Performed At [employer] Employee ID - BS [facility] ICAL [place] Performing Organization Address City/[facility]/Zipcode Phone Number [address] [phone] [place] Osmolality, urine (03/20/2019 2:22 AM APRON WORKER) Osmolality, Ur 540 40-1,400 mOsm/kg [facility] Specimen Urine Performing Organization Address [facility] Phone Number [address] [address] [place] Chloride, random urine (03/20/2019 2:22 AM APRON WORKER) ChlorideUr <20 meq/L [facility] Specimen Urine Narrative Performed At Reference Range: No Normals [facility] [employer] Employee ID - BS Performing Organization Address City/[facility] Phone Number [address] [address] [place] ECHOCARDIOGRAM REPORT - SCAN (01/23/2019 9:21 PM APRON WORKER) Narrative Performed At This result has an attachment that is no t available. MRA head without IV contrast (01/23/2019 8:01 AM APRON WORKER) Specimen Narrative Performed At FINAL REPORT [facility] MRV Head CLINICAL HISTORY:Stroke, follow up concern for transverse sinus thrombosis, need MRV please TECHNIQUE: MRV of the head utilizing 2-D bhah-kl-akwhpf technique. COMPARISON: CTA 01/22/2019 FINDINGS: There is [...] External Ris In - 01/23/2019 8:29 AM APRON WORKER FINAL REPORT MRV Head CLINICAL HISTORY:Stroke, follow up concern for transverse sinus thrombosis, need MRV please TECHNIQUE: MRV of the head utilizing 2-D ipvy-th-ynfozo technique. COMPARISON: CTA 01/22/2019 FINDINGS: There is [...] 8:26:36 Performing Organization Address City/State/Zipcode Phone Number [facility] MR brain without IV contrast (01/22/2019 6:11 PM APRON WORKER) Specimen Narrative Performed At FINAL REPORT [facility] MR, BRAIN, WITHOUT CONTRAST INDICATION: Stroke, follow [...] External Ris In - 01/22/2019 7:28 PM APRON WORKER FINAL REPORT MR, BRAIN, WITHOUT CONTRAST [...] 9:25:11 Performing Organization Address City/State/Zipcode Phone Number [facility] CTA carotid (01/22/2019 4:59 PM APRON WORKER) Specimen Narrative Performed At FINAL REPORT [facility] CLINICAL HISTORY: Neuro deficit, acute, stroke suspected [...] External Ris In - 01/24/2019 2:56 PM APRON WORKER FINAL REPORT CLINICAL HISTORY: Neuro deficit, [...] 9:16:06 Performing Organization Address City/State/Zipcode Phone Number [facility] CTA brain (01/22/2019 4:59 PM APRON WORKER) Specimen Narrative Performed At FINAL REPORT [facility] CLINICAL HISTORY: Neuro deficit, acute, stroke suspected [...] External Ris In - 01/22/2019 7:18 PM APRON WORKER FINAL REPORT CLINICAL HISTORY: Neuro deficit, [...] 9:16:06 Performing Organization Address City/State/Zipcode Phone Number [facility] Transthoracic 2D echo w/ doppler (cw/pw/color) (01/22/2019 1:16 PM APRON WORKER) Ejection Fraction [facility] ECHO HEAR TLAB CKESSON [facility] Specimen Narrative Performed At Transthoracic Echocardiography Report (T TE) [facility] ECHO HEARTLAB MKCKESSON [facility] Demographics Patient JOHN Valdes Date of Study01/22/2019 Gender Male Visit [id number] Race Unknown [id number] Number Date of 1955 ReferringCHRISTOPHER GOODRICH Physician Age 63 year(s) SonographerJohnny [facility] Fredi Eller, NB, RDCS,RVT,RDMS [employer] Aliya YeeInterpreting Lyn Mike MD Ciolacely Physician [...] of 1.82 cm2. 4. Mild mitral regurgitation. 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 5. Aortic [...] severity assessment is unreliable . Aortic Valve Lkcb-gg-ttzhxxcc AoV cusp calcification. Mi ld aortic stenosis. Ao V area at rest by continuity equation is in the ra nge of 1.82 cm2. Preserved stroke volume . Mitral Valve Mild MV leaflet thickening. Se giles mitral annular and subvalvular ca lcification. Mi ld mitral regurgitation. 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 MV area [...] External Ris In - 01/23/2019 10:36 AM APRON WORKER Transthoracic Echocardiography Report (TTE) Demographics Patient Name JOHN VERGARA Date of St udy 01/22/2019 Gender Male Visit Number [id number] Race Unknown [place] [address] Number Date of 1955 Referring BRITTON OGODRICH Physician Age 63 year(s) Sonographe gracie Eller, NB, RDCS,RVT,RDMS [employer]uke Box Mechanic MD Isaac Espinosa Physician Procedure Type of [...] severity assessment is unreliable . Aortic Valve Sjml-bw-xhulsgbb AoV cusp calcification. Mild aortic sten osis. AoV area at rest by continuity equation is in the range of 1.82 cm 2. Preserved stroke volume. Mitral Valve Mild MV leaflet thickening. Severe mitral an nular and subvalvular calcification. Mild mitral regu rgitation. Nlck-hi-jarylemm mitral stenosis secondary to MAC. MV area [...] City/State/Zipcode Phone Number [facility] ECHO HEARTLAB MKCKESSON [facility] RPR (01/21/2019 11:26 PM APRON WORKER) RPR Nonreactive Nonreactive [facility] Specimen Blood Performing Organization Address City/State/Zipcode Phone Number [facility] [address] [place] [address] CENTER after 09/07/2018 Insurance Payer Benefit Plan / Group Subscriber ID Type Phone A nena DAIGLE xxxxxxxxxxx Advance Directives For more information, please contact:[address] [phone] Code Status Date Activated Date Inactivated Comments Full Code 05/30/2019 8:01 PM 06/09/2019 10:53 PM This code status was determined by: Patient Full Code 03/19/2019 11:39 PM 04/25/2019 7:15 PM This code status was determined by: Patient Full Code 01/21/2019 8:37 PM 01/24/2019 4:42 PM This code status was determined by: Patient
--- OUTSIDE RECORDS SUMMARY | 2019-09-08 03:14 | XMS REPORT | Continuity of Care Document ---
:1955 Author Organization [facility] t Address [address] Smith [address] [place] [id number] Care Team Providers Name Role Phone Pcp [...] Clinician Laya Tabares MD, Devonte Attending Clinician [phone] Irineo Aj MD Attending Clinician Hal CAMERON Attending Clinician Sangita Breaux MD Attending Clinician Anh CAMERON Attending Clinician Bob Andrews MD Attending Clinician Checo Holguin MD Attending Clinician Miranda Chavez CRNA Attending Clinician [phone] Kadeem Peña MD Attending Clinician Fara CAMERON Attending Clinician Ricardo Hamilton MD Attending Clinician Hilario CAMERON Attending Clinician FARA Attending Clinician Unavailable DELANEY HORNE Admitting Clinician Unavailable EDILMA ZAMUDIO Admitting Clinician Unavailable HILARIO Admitting Clinician Unavailable Payers Payer Name Policy Policy Number Effective Expiration Source Type Date Date AMBETTERAMBETTER xxxxxxxxxxx [facility] SUPERIORxxxxxxxxxxx [facility] Problems Condition Condition Condition Status Onset Resolution Last Treating Co mments Source Name Details Category Date Date Treatment Clinician Date Volume Volume Disease Active 2020-[address] [facility] overload overload 4-03 [facility] Medical 00 [place] Delirium Delirium Disease Active 2020- [facility] 00 [place] Dysphagia Dysphagia Disease Active 2020-[address] 2-22 [facility] - [facility]: Medical 00 [place] Severe Severe Disease Active 2020-[address] [facility] [...] St -24 [facility] - 00:[facility]: Medical 00 [place] Hydropneum Hydropneum Disease Active C HI [facility] [...] C HI St c shock c shock [facility] History of Past Illness Condition Condition Condition [...] Date Stop Date Source Natural father Hypertension [facility] Natural mother Diabetes [facility] Social History Social Habit Start Date Stop Date Quantity Comments Source History of tobacco 1967-01-[address] [facility] - use 00:00:00 day smoker Medical Center History SDOH [facility] - Alcohol Binge [facility] [address] Sex Assigned At [facility] Center Cigarettes smoked 2019-04-14 2019-04-[address] [facility] - current (pack per 00:00:00 00:00:00 Medical Center day) - Reported Cigarette 2019-04-14 2019-04-[address] [facility] - pack-years 00:00:00 00:00:00 [facility] Alcohol Comment 2019-03-20 2019-03-20 4 cans of beer [facility]:00:00 every evening [facility] [address] History [facility] 2019-01-21 2019-01-[address] [facility] - Alcohol Frequency 00:00:00 00:00:00 Medical Center History [facility] 2019-01-21 2019-01-[address] [facility] - Alcohol Std Drinks 00:00:00 00:00:00 Medica l [place] Tobacco Comment 2019-01-21 2019-01-[address] [facility] - 00:00:00 00:00:00 ready to quit Medical [address] smoking Smoking Status Start Date Stop Date Source Current every day smoker 2019-04-14 00:00:00 [facility] Medications Ordered Filled Start Stop Current Ordering Indication Dosage Frequency Signature Comments Components Source Medication Medication Date Date Medication? Clinician (SIG) Name Name gabapentin 2019- No 300mg [id number] Take [address] (NEURONTIN) 4-13 04-13 [id number] mg by [facility] - 300 MG 17:03: 00:00 3D mouth 3 Medical capsule 56 :00 (three) Center times daily. magnesium 2019- No 400mg QD Take [address] oxide - 04-13 mg by [facility] - (MAG-OX) 17:03: 00:00 mouth Medical 400 mg 56 :00 daily. [place] (241.3 mg magnesium) tablet metOLazone 2019- No 5mg Q.5W Take [address] (ZAROXOLYN) - 04-13 by mouth [place]ina es - 5 MG tablet 17:03: 00:00 twice a Me dical 55 :00 week On [place] Sunday and Sunday . QUEtiapine 2019- No 12.5mg QD Take 12.[address] (SEROQUEL) 4-13 04-13 mg by [facility] - 25 MG 17:03: 00:00 mouth Medical tablet 55 :00 nightly. [place] dilTIAZem 2020- No 120mg QD Take 120 [...] Center daily as needed (constipat ion). atorvastati No 40mg QD Take 0.[address] n (LIPITOR) 06-08- tablets Luke s - 80 MG 00:00: 23:59 (40 mg Medical tablet 00 :00 total) by Center mouth nightly. potassium No 20meq QD Take [address] chloride SA 06-08 tablet (20 L ukes - (K-DUR,KLOR 00:00: 23:59 mEq total) Medical -CON) 20 00 :00 by mouth Center MEQ tablet daily. thiamine No 100mg QD Take 1 [facility] [...] (241.3 mg magnesium) tablet gabapentin No 300mg [id number] Take [address] (NEURONTIN) 04-25 [id number] mg by [facility] - 300 MG 14:21: [...] for 90 days. midodrine 2019- No 5mg [id number] Take [address] (PROAMATINE 04-25 [id number] tablet (5 [facility] - ) 5 MG [...] Center Heart rate 2019-06-09 20:05:00 90 /min [facility] Body temperature 2019-06-09 20:00:00 36.61 Stephanie [facility] Respiratory rate 2019-06-09 20:00:00 22 /min [facility] Oxygen saturation in 2019-06-09 20:00:00 98 /min [facility] Arterial blood by Medical Ce nter Pulse oximetry Body weight Measured 2019-06-09 06:00:00 71.1 kg [facility] BMI 2019-06-09 06:00:00 23.15 kg/m2 [facility] Body height 2019-06-02 06:00:00 175.3 cm [facility] Procedures Procedure Date / Time Performing Clinician Source Performed RHYTHM STRIP - SCAN 2019-07-02 12:50:08 Provider, [facility] REPORT OF PROCEDURE - 2019-07-02 12:50:05 Provider, [facility] RHYTHM STRIP - SCAN 2019-06-12 14:00:10 Provider, [facility] RHYTHM STRIP - SCAN 2019-06-12 14:00:08 Provider, [facility] POCT-GLUCOSE METER 2019-06-09 18:23:00 France Drake [facility] POCT-GLUCOSE METER 2019-06-09 12:40:00 France Drake [facility] COMPREHENSIVE METABOLIC 2019-06-09 11:30:[address] [facility] POCT-GLUCOSE METER 2019-06-09 05:42:00 France Drake [facility] POCT-GLUCOSE METER 2019-06-08 23:32:00 France Drake [facility] POCT-GLUCOSE METER 2019-06-08 18:13:00 France Drake [facility] POCT-GLUCOSE METER 2019-06-08 05:26:00 France Drake [facility] POCT-GLUCOSE METER 2019-06-07 23:19:00 Vidal France Galvez [facility] POCT-GLUCOSE METER 2019-06-07 18:41:00 Vidal, France [facility] POCT-GLUCOSE METER 2019-06-07 17:14:00 Vidal, France Galvez [facility] POCT-GLUCOSE METER 2019-06-07 14:17:00 Vidal, France Galvez [facility] POCT-GLUCOSE METER 2019-06-07 06:16:00 Vidal, France Galvez [facility] POCT-GLUCOSE METER 2019-06-06 23:38:00 Vidal, France [facility] POCT-GLUCOSE METER 2019-06-06 17:48:00 Vidal, France [facility] POCT-GLUCOSE METER 2019-06-06 12:00:00 Vidal France [facility] POCT-GLUCOSE METER 2019-06-06 05:44:00 Vidal France Galvez [facility] COMPREHENSIVE METABOLIC 2019-06-06 03:50:[address] [facility] POCT-GLUCOSE METER 2019-06-05 23:58:00 Vidal, France [facility] POCT-GLUCOSE METER 2019-06-05 16:45:00 Vidal France [facility] POTASSIUM 2019-06-05 16:31:00 Vidal France Galvez [facility] POCT-GLUCOSE METER 2019-06-05 12:17:00 Vidal France Galvez [facility] BASIC METABOLIC PANEL (7) 2019-06-05 06:01:00 France Drake [facility] POCT-GLUCOSE METER 2019-06-05 06:01:00 Vidal France [facility] POCT-GLUCOSE METER 2019-06-05 00:03:00 Vidal [facility] POCT-GLUCOSE METER 2019-06-04 17:43:00 Vidal [facility] XR ESOPH SWALLOW FUNCTION 2019-06-04 14:45:00 Serafin Palafox [facility] POCT-GLUCOSE METER 2019-06-04 11:44:00 Vidal [facility] POCT-GLUCOSE METER 2019-06-04 06:06:00 Vidal [facility] COMPREHENSIVE METABOLIC 2019-06-04 05:15:00 Alberto, Lawsondaniel Ammy [facility] CBC W/PLT COUNT & AUTO 2019-06-04 05:15:00 Alberto, Ole Welleri [facility] US ABDOMEN LIMITED 2019-06-04 02:10:00 Vidal [facility] POCT-GLUCOSE METER 2019-06-03 23:38:00 Vidal [facility] POCT-GLUCOSE METER 2019-06-03 17:47:00 Vidal [facility] AMMONIA 2019-06-03 14:56:00 Vidal [facility] POCT-GLUCOSE METER 2019-06-03 12:09:00 Vidal [facility] POCT-GLUCOSE METER 2019-06-03 06:21:00 Serafin Palafox [facility] COMPREHENSIVE METABOLIC 2019-06-03 05:25:[address] [facility] MAGNESIUM 2019-06-03 05:25:00 Serafin Palafox [facility] CBC W/PLT COUNT & AUTO 2019-06-03 05:25:00 Alberto, Lawsondaniel Ammy [facility] POCT-GLUCOSE METER 2019-06-03 00:10:00 Serafin Palafox [facility] POCT-GLUCOSE METER 2019-06-02 17:53:00 Serafin Palafox [facility] BASIC METABOLIC PANEL (7) 2019-06-02 15:03:00 Serafin Palafox [facility] POCT-GLUCOSE METER 2019-06-02 12:29:00 Serafin Palafox [facility] BLOOD GAS, ARTERIAL 2019-06-02 08:15:00 Serafin Palafox [facility] POCT-GLUCOSE METER 2019-06-02 05:38:00 Serafin Palafox [facility] VANCOMYCIN LEVEL, TROUGH 2019-06-02 01:24:00 Val Moh[facility] COMPREHENSIVE METABOLIC 2019-06-02 01:24:00 Alber[facility] MAGNESI[facility] 2019-06-02 01:24:[address] [facility] CBC W/PLT COUNT & AUTO 2019-06-02 01:24:00 Alberto, Ole Boyd [facility] POCT-GLUCOSE METER 2019-06-01 23:14:00 Alberto, [facility] ECHOCARDIOGRAM REPORT - SCAN 2019-06-01 21:20:04 ProviderUday lt [facility] POCT-GLUCOSE METER 2019-06-01 17:49:00 Alberto, [facility] 2D ECHO W/ DOPPLER 2019-06-01 14:50:21 Alberto, [facility] (CW/PW/COLOR) [facility] POCT-GLUCOSE METER 2019-06-01 11:54:00 Alberto, [facility] MRSA SCREEN 2019-06-01 10:47:00 Val Mohr [facility] BASIC METABOLIC PANEL (7) 2019-06-01 10:46:00 Alberto, [facility] MAGNESIUM 2019-06-01 10:46:00 Alberto, [facility] 2019-06-01 10:46:00 Alberto, [facility] CBC W/PLT COUNT & AUTO 2019-06-01 10:46:00 Alberto, [facility] POCT-GLUCOSE METER 2019-06-01 05:37:00 Alberto, [facility] POCT-GLUCOSE METER 2019-05-31 23:21:00 Alberto, [facility] POCT-GLUCOSE METER 2019-05-31 17:44:00 Alberto, [facility] POCT-GLUCOSE METER 2019-05-31 11:21:00 Alberto, [facility] PROTHROMBIN TIME/INR 2019-05-31 10:31:00 Manolo [facility] HEPATITIS PANEL, ACUTE 2019-05-31 08:24:00 Manolo [facility] VANCOMYCIN LEVEL, RANDOM 2019-05-31 08:23:00 John Mendenhall [facility] COMPREHENSIVE METABOLIC 2019-05-31 08:23:[address] [facility] PANEL [facility] B-TYPE NATRIURETIC FACTOR 2019-05-31 08:23:00 Manolo [facility] (BNP) [facility] CBC W/PLT COUNT & AUTO 2019-05-31 08:23:00 Manolo [facility] DIFFERENTIAL [facility] BLOOD CULTURE 2019-05-31 08:22:00 Manolo [facility] ECG 12-LEAD 2019-05-31 07:21:40 Manolo [facility] POCT-GLUCOSE METER 2019-05-31 05:54:00 Liza Horne [facility] SODIUM, RANDOM URINE 2019-05-31 03:26:00 Manolo [facility] UREA NITROGEN, RANDOM URINE 2019-05-31 03:26:00 Manolo [facility] CREATININE, RANDOM URINE 2019-05-31 03:26:00 Manolo [facility] BLOOD CULTURE 2019-05-31 00:25:00 French [facility] POCT-GLUCOSE METER 2019-05-30 23:51:00 Liza oHrne [facility] XR CHEST 1 VIEW 2019-05-30 21:03:00 French, [facility] PORTABLE/BEDSIDE [facility] COMPREHENSIVE METABOLIC 2019-05-30 20:55:[address] [facility] PANEL [facility] PROTHROMBIN TIME/INR 2019-05-30 20:55:00 French [facility] CBC W/PLT COUNT & AUTO 2019-05-30 20:55:00 French [facility] S [facility] DIFFERENTIAL [facility] ECG 12-LEAD 2019-05-30 19:25:56 Unknown, Hl7 Doctor [facility] XR CHEST 2 VIEWS 2019-05-08 12:14:00 Adelaide Lambert [facility] RHYTHM STRIP - SCAN 2019-05-01 17:29:28 Provider, [facility] RHYTHM STRIP - SCAN 2019-04-28 15:01:14 Provider, [facility] RHYTHM STRIP - SCAN 2019-04-28 15:01:12 Provider, [facility] XR CHEST 1 VIEW 2019-04-25 06:45:00 Zhao Moreno [facility] PORTABLE/BEDSIDE [facility] BASIC METABOLIC PANEL (7) 2019-04-25 04:52:00 Gustavo George [facility] MAGNESIUM 2019-04-25 04:52:00 Gustavo George [facility] PHOSPHORUS 2019-04-25 04:52:00 Gustavo George [facility] CBC W/PLT COUNT & AUTO 2019-04-25 04:52:00 Gustavo George [facility] XR CHEST 1 VIEW 2019-04-24 06:56:00 Josh, [facility] PORTABLE/BEDSIDE Medical [place] BASIC METABOLIC PANEL (7) 2019-04-24 04:11:00 Gustavo George [facility] MAGNESIUM 2019-04-24 04:11:00 Gustavo George [facility] PHOSPHORUS 2019-04-24 04:11:00 Gustavo George [facility] CBC W/PLT COUNT & AUTO 2019-04-24 04:11:00 Gustavo George [facility] XR CHEST 1 VIEW 2019-04-23 13:57:00 [facility] XR CHEST 1 VIEW 2019-04-23 06:31:00 Josh [facility] BASIC METABOLIC PANEL (7) 2019-04-23 03:53:00 Gustavo George [facility] MAGNESIUM 2019-04-23 03:53:00 Gustavo George [facility] PHOSPHORUS 2019-04-23 03:53:00 Gustavo George [facility] PREALBUMIN 2019-04-23 03:53:00 [facility] W/PLT COUNT & AUTO 2019-04-23 03:53:00 Gustavo George [facility] XR ESOPH SWALLOW FUNCTION 2019-04-22 14:30:00 Yonathan Mccracken [facility] - W/CINE VIDEO [facility] XR CHEST 1 VIEW 2019-04-22 05:49:00 Josh [facility] BASIC METABOLIC PANEL (7) 2019-04-22 04:02:00 Gustavo George [facility] MAGNESIUM 2019-04-22 04:02:00 Gustavo George [facility] PHOSPHORUS 2019-04-22 04:02:00 Gustavo George [facility] CBC W/PLT COUNT & AUTO 2019-04-22 03:23:00 Gustavo George [facility] BASIC METABOLIC PANEL (7) 2019-04-21 12:23:00 Enoch Chung [facility] MAGNESIUM 2019-04-21 12:23:00 Sheldon shantanu [facility] XR CHEST 1 VIEW 2019-04-21 03:59:00 JoshZhao [facility] PORTABLE/BEDSIDE Medical [place] BASIC METABOLIC PANEL (7) 2019-04-21 03:43:00 Gustavo George Christie [facility] MAGNESIUM 2019-04-21 03:43:00 Gustavo George Christie [facility] PHOSPHORUS 2019-04-21 03:43:00 Gustavo George Christie [facility] CBC W/PLT COUNT & AUTO 2019-04-21 03:42:[address] [facility] BASIC METABOLIC PANEL (7) 2019-04-20 15:19:00 Zhao Moreno [facility] PHOSPHORUS 2019-04-20 15:19:00 Josh [facility] MAGNESIUM 2019-04-20 15:19:00 Sheldon Haz[facility] CBC W/PLT COUNT & AUTO 2019-04-20 15:19:00 Zhao Moreno [facility] S [facility] POCT-GLUCOSE METER 2019-04-20 12:17:00 Fernando Andrews [facility] XR CHEST 1 VIEW 2019-04-20 05:50:00 Zhao Moreno [facility] PORTABLE/BEDSIDE [facility] BASIC METABOLIC PANEL (7) 2019-04-20 03:21:00 Zhao Moreno [facility] PHOSPHORUS 2019-04-20 03:21:00 [facility] 2019-04-20 03:21:00 Sheldon Hazel [facility] CBC W/PLT COUNT & AUTO 2019-04-20 03:21:00 [facility] POCT-GLUCOSE METER 2019-04-20 00:07:00 Fernando Andrews [facility] TRANSFUSION SERVICE REPORT - 2019-04-19 18:02:04 Provider, Uday macias [facility] BASIC METABOLIC PANEL (7) 2019-04-19 17:34:00 Josh, Zhao [facility] PHOSPHORUS 2019-04-19 17:34:00 Josh [facility] MAGNESIUM 2019-04-19 17:34:00 Sheldon [facility] CBC W/PLT COUNT & AUTO 2019-04-19 17:34:00 [facility] XR CHEST 1 VIEW 2019-04-19 05:48:00 [facility] PORTABLE/BEDSIDE [facility] BASIC METABOLIC PANEL (7) 2019-04-19 03:26:00 Zhao Moreno [facility] PHOSPHORUS 2019-04-19 03:26:00 [facility] MAGNESIUM 2019-04-19 03:26:00 [facility] W/[facility]T COUNT & AUTO 2019-04-19 03:26:00 [facility] POCT-GLUCOSE METER 2019-04-19 00:23:00 Fernando Andrews [facility] PREPARE LEUKO-REDUCED RBC 2019-04-18 23:54:[address] [facility] POCT-GLUCOSE METER 2019-04-18 18:27:00 Fernando nAdrews [facility] TRANSFUSION SERVICE REPORT - 2019-04-18 18:02:42 Provider, Uday macias [facility] BASIC METABOLIC PANEL (7) 2019-04-18 18:02:00 Zhao Moreno [facility] PHOSPHORUS 2019-04-18 18:02:00 [facility] MAGNESIUM 2019-04-18 18:02:00 [facility] CBC W/PLT COUNT & AUTO 2019-04-18 18:02:00 Josh Zhao [facility] POCT-GLUCOSE METER 2019-04-18 11:46:00 Fernando Andrews [facility] POCT-GLUCOSE METER 2019-04-18 05:54:00 Fernando Andrews [facility] XR CHEST 1 VIEW 2019-04-18 05:36:00 Josh [facility] PORTABLE/BEDSIDE Medical Center BLOOD GAS, ARTERIAL 2019-04-18 02:37:00 Josh [facility] BASIC METABOLIC PANEL (7) 2019-04-18 02:36:00 [facility] 2019-04-18 02:36:00 Josh [facility] MAGNESIUM 2019-04-18 02:36:00 [facility] CBC W/PLT COUNT & AUTO 2019-04-18 02:36:00 Josh [facility] POCT-GLUCOSE METER 2019-04-18 00:19:00 Fernando Andrews [facility] POCT-GLUCOSE METER 2019-04-17 18:30:00 Fernando Andrews [facility] TRANSFUSION SERVICE REPORT - 2019-04-17 17:52:04 Uday Wilkes lt [facility] BLOOD GAS, ARTERIAL 2019-04-17 16:17:00 Josh [facility] BASIC METABOLIC PANEL (7) 2019-04-17 16:16:00 Josh Zhao [facility] PHOSPHORUS 2019-04-17 16:16:00 Josh, [facility] MAGNESIUM 2019-04-17 16:16:00 Sheldon [facility] CBC W/PLT COUNT & AUTO 2019-04-17 16:16:00 [facility] POCT-GLUCOSE METER 2019-04-17 13:14:00 Fernando Andrews [facility] TRANSFUSE LEUKO-REDUCED RED 2019-04-17 11:41:31 Yonathan Mccracken [facility] BLOOD CELLS [facility] XR CHEST 1 VIEW 2019-04-17 06:07:00 Josh [facility]/BEDSIDE [facility] POCT-GLUCOSE METER 2019-04-17 05:32:00 Fernando Andrews [facility] BLOOD GAS, ARTERIAL 2019-04-17 03:30:00 [facility] BASIC METABOLIC PANEL (7) 2019-04-17 03:30:00 Josh [facility] PHOSPHORUS 2019-04-17 03:30:00 [facility] PROTHROMBIN TIME/INR 2019-04-17 03:30:00 [facility] APTT 2019-04-17 03:30:00 Josh [facility] MAGNESIUM 2019-04-17 03:30:00 Enoch Chung [facility] CBC W/PLT COUNT & AUTO 2019-04-17 03:30:00 [facility] HEMOGLOBIN AND HEMATOCRIT 2019-04-17 00:27:00 Celestina Estrada [facility] POCT-GLUCOSE METER 2019-04-17 00:10:00 Fernando Andrews [facility] PREPARE CRYOPRECIPITATE 2019-04-16 23:54:00 [facility] PREPARE PLASMA 2019-04-16 23:54:00 Sean [facility] PREPARE LEUKO-REDUCED RBC 2019-04-16 23:54:00 Enoch Chung [facility] PERIPHERAL VASCULAR REPORT - 2019-04-16 21:23:26 Uday Wilkes lt [facility] POCT-GLUCOSE METER 2019-04-16 18:48:00 Fernando Andrews [facility] TRANSFUSION SERVICE REPORT - 2019-04-16 17:52:48 Uday Wilkes lt [facility] BLOOD GAS, ARTERIAL 2019-04-16 16:02:00 [facility] PHOSPHORUS 2019-04-16 16:02:00 [facility] BASIC METABOLIC PANEL (7) 2019-04-16 16:02:00 Enoch Chung [facility] CBC W/PLT COUNT & AUTO 2019-04-16 16:02:00 [facility] POCT-GLUCOSE METER 2019-04-16 13:24:00 Fernando Andrews [facility] HEMOGLOBIN AND HEMATOCRIT 2019-04-16 09:09:00 Sean [facility] XR CHEST 1 VIEW 2019-04-16 03:46:00 [facility] PORTABLE/BEDSIDE Medical Center MAGNESIUM 2019-04-16 03:28:00 Antonio Grace [facility] BASIC METABOLIC PANEL (7) 2019-04-16 03:28:00 [facility] PHOSPHORUS 2019-04-16 03:28:00 [facility] PROTHROMBIN TIME/INR 2019-04-16 03:28:00 [facility] APTT 2019-04-16 03:28:00 [facility] CALCIUM, IONIZED 2019-04-16 03:28:00 Sean [facility] CBC W/PLT COUNT & AUTO 2019-04-16 03:28:00 [facility] BLOOD GAS, ARTERIAL 2019-04-16 03:24:00 [facility] TRANSFUSE LEUKO-REDUCED RED 2019-04-16 01:54:16 [facility] BLOOD CELLS [facility] POCT-GLUCOSE METER 2019-04-15 23:14:00 Fernando Andrews [facility] CBC W/PLT COUNT & AUTO 2019-04-15 22:51:00 Celestina Estrada [facility] TRANSFUSE LEUKO-REDUCED RED 2019-04-15 21:45:24 Yonathan Mccracken [facility] TRANSFUSION SERVICE REPORT - 2019-04-15 18:08:22 Provider, Uday macias [facility] US GUIDE, VASCULAR ACCESS 2019-04-15 17:48:17 Enoch Chung [facility] BLOOD GAS, ARTERIAL 2019-04-15 16:04:00 [facility] BASIC METABOLIC PANEL (7) 2019-04-15 16:03:00 Zhao Moreno [facility] PHOSPHORUS 2019-04-15 16:03:00 Zhao Moreno [facility] CBC W/PLT COUNT & AUTO 2019-04-15 16:03:00 Zhao Moreno [facility] Kunal [facility] TRANSFUSE LEUKO-REDUCED RED 2019-04-15 14:21:08 Enoch Chung [facility] XR CHEST 1 VIEW 2019-04-15 14:01:00 Enoch Chung [facility]/BEDSIDE [facility] VENOUS DOPPLER ARM, LEFT 2019-04-15 11:30:00 Yonathan Mccracken [facility] THROMBOELASTOGRAPH (TEG) 2019-04-15 11:28:00 Enoch Chung [facility] POCT-GLUCOSE METER 2019-04-15 11:22:00 Fernando Andrews [facility] TRANSFUSE PLASMA 2019-04-15 11:03:06 Celestina Estrada [facility] ECG 12-LEAD 2019-04-15 10:36:36 Unknown, Hl7 Doctor [facility] ECG 12-LEAD 2019-04-15 10:35:51 Lucio Guillory [facility] TRANSFUSE CRYOPRECIPITATE 2019-04-15 09:22:40 Celestina Estrada [facility] CBC W/PLT COUNT & AUTO 2019-04-15 08:52:00 Enoch Chung [facility] TRANSFUSE LEUKO-REDUCED RED 2019-04-15 07:56[facility] 2019-04-15 06:24[facility] 2019-04-15 04:38:00 Josh [facility] PORTABLE/BEDSIDE Medical Center BLOOD GAS, ARTERIAL 2019-04-15 04:07:00 Josh [facility] MAGNESIUM 2019-04-15 04:05:00 Antonio Grace [facility] BASIC METABOLIC PANEL (7) 2019-04-15 04:05:00 AparnaamYahaira Sangita [facility] PHOSPHORUS 2019-04-15 04:05:00 Josh [facility] LACTIC ACID, ARTERIAL 2019-04-15 04:05:00 Sean [facility] CALCIUM, IONIZED 2019-04-15 04:05:00 Sean [facility] CBC W/PLT COUNT & AUTO 2019-04-15 04:05:00 Sean [facility] TRANSFUSE LEUKO-REDUCED RED 2019-04-15 03:39:[address] [facility] TRANSFUSE LEUKO-REDUCED RED 2019-04-15 02:17:[address] [facility] PROTHROMBIN TIME/INR 2019-04-15 01:58:00 Josh [facility] PT/APTT 2019-04-15 01:58:00 Sean [facility] FIBRINOGEN 2019-04-15 01:58:00 [facility] POCT-GLUCOSE METER 2019-04-15 00:23:00 Bharti Kamara [facility] CORTISOL 2019-04-15 00:07:00 Jude Stewart [facility] CBC W/PLT COUNT & AUTO 2019-04-15 00:07:00 TerryJude [facility] S [facility] DIFFERENTIAL [facility] XR CHEST 1 VIEW 2019-04-14 20:32:00 Josh [facility] PORTABLE/BEDSIDE Medical Center BLOOD GAS, ARTERIAL 2019-04-14 20:00:00 Elma Estradanya [facility] MAGNESIUM 2019-04-14 19:57:00 Josh [facility] PHOSPHORUS 2019-04-14 19:57:00 [facility] CALCIUM, IONIZED 2019-04-14 19:57:00 [facility] FUNGUS CULTURE + SMEAR 2019-04-14 18:48:03 DarrylFernando [facility] AFB CULTURE + SMEAR 2019-04-14 18:48:03 DarrylFernando [facility] (NON-SPUTUM) [facility] BRONCHIAL CULTURE + GRAM 2019-04-14 18:48:00 Fernando Andrews [facility] SPIN/CONCENTRATION CHARGE 2019-04-14 18:48:00 Fernando Andrews [facility] CALCIUM, IONIZED 2019-04-14 17:49:02 Elham Holguin [facility] BLOOD GAS, ARTERIAL 2019-04-14 17:49:02 Elham Holguin [facility] SODIUM NA-STAT LAB 2019-04-14 17:49:02 Elham Holguin [facility] POTASSIUM-STAT LAB 2019-04-14 17:49:02 Elham Holguin [facility] GLUCOSE-STAT LAB 2019-04-14 17:49:02 Elham Holguin [facility] HGB/HCT (H&H) - STAT LAB 2019-04-14 17:49:02 Elham Holguin [facility] AFB CULTURE + SMEAR 2019-04-14 17:15:20 Darryl, Fernando [facility] (NON-SPUTUM) [facility] ANAEROBIC CULTURE 2019-04-14 17:15:20 [facility] FUNGUS CULTURE + SMEAR 2019-04-14 17:15:20 [facility] SURGICALLY OBTAINED CULTURE 2019-04-14 17:15:20 [facility] + GRAM STAIN [facility] AFB CULTURE + SMEAR 2019-04-14 17:10:41 [facility] (NON-SPUTUM) [facility] ANAEROBIC CULTURE 2019-04-14 17:10:41 [facility] FUNGUS CULTURE + SMEAR 2019-04-14 17:10:41 [facility] SURGICALLY OBTAINED CULTURE 2019-04-14 17:10:41 [facility] + GRAM STAIN [facility] AFB CULTURE + SMEAR 2019-04-14 17:08:01 DarrylFernando [facility] (NON-SPUTUM) [facility] ANAEROBIC CULTURE 2019-04-14 17:08:01 [facility] CULTURE 2019-04-14 17:08:01 Fernando Andrews [facility] + GRAM STAIN [facility] FUNGUS CULTURE + SMEAR 2019-04-14 17:08:01 DarrylFernando [facility] AFB CULTURE + SMEAR 2019-04-14 17:00:33 [facility] ANAEROBIC CULTURE 2019-04-14 17:00:33 DarrylAlanwn [facility] FUNGUS CULTURE + SMEAR 2019-04-14 17:00:33 DarrylFernando [facility] SURGICALLY OBTAINED CULTURE 2019-04-14 17:00:33 DarrylFernando [facility] - + GRAM STAIN [facility] TISSUE EXAM 2019-04-14 16:54:00 Fernando Andrews [facility] CALCIUM, IONIZED 2019-04-14 16:30:09 Elham Holguin [facility] BLOOD GAS, ARTERIAL 2019-04-14 16:30:09 Elham Holguin [facility] SODIUM NA-STAT LAB 2019-04-14 16:30:09 Elham Holguin [facility] POTASSIUM-STAT LAB 2019-04-14 16:30:09 Elham Holguin [facility] GLUCOSE-STAT LAB 2019-04-14 16:30:09 Elham Holguin [facility] HGB/HCT (H&H) - STAT LAB 2019-04-14 16:30:09 Elham Holguin [facility] CYTOLOGY 2019-04-14 15:48:00 Fernando Andrews [facility] SURGICALLY OBTAINED CULTURE 2019-04-14 15:41:33 Fernando Andrews [facility] - + GRAM STAIN [facility] AFB CULTURE + SMEAR 2019-04-14 15:41:33 [facility] Medical [place] FUNGUS CULTURE + SMEAR 2019-04-14 15:41:33 Alan Andrewswn [facility] ANAEROBIC CULTURE 2019-04-14 15:41:33 [facility] CALCI[facility], IONIZED 2019-04-14 15:24:34 Elham Holguin [facility] BLOOD GAS, ARTERIAL 2019-04-14 15:24:34 Elham Holguin [facility] SODIUM NA-STAT LAB 2019-04-14 15:24:34 Elham Holguin [facility] POTASSIUM-STAT LAB 2019-04-14 15:24:34 Elham Holguin [facility] GLUCOSE-STAT LAB 2019-04-14 15:24:34 Elham Holguin [facility] HGB/HCT (H&H) - STAT LAB 2019-04-14 15:24:34 Elham Holguin [facility] THORACOSCOPY 2019-04-14 13:25:00 Fernando Andrews [facility] (VATS),DECORTICATION Medical [address] BRONCHOSCOPY 2019-04-14 13:25:00 Fernando Andrews [facility] ECG 12-LEAD 2019-04-14 12:19:58 Unknown, Hl7 Doctor [facility] XR CHEST 1 VIEW 2019-04-14 10:05:00 Yonathan Mccracken [facility] PORTABLE/BEDSIDE [facility] MAGNESIUM 2019-04-14 01:01:00 Antonio Grace [facility] PHOSPHORUS 2019-04-14 01:01:00 Antonio Grace [facility] BASIC METABOLIC PANEL (7) 2019-04-14 01:01:00 Aparna [facility] PROTHROMBIN TIME/INR 2019-04-14 01:01:00 Aparna [facility] COMPREHENSIVE METABOLIC 2019-04-14 01:01:[address] [facility] TYPE AND SCREEN, AUTOMATED 2019-04-14 01:01:00 Aparna [facility] CBC W/PLT COUNT & AUTO 2019-04-14 01:01:00 Antonio Grace [facility] POCT-GLUCOSE METER 2019-04-13 19:57:00 Nalam [facility] POCT-GLUCOSE METER 2019-04-13 17:17:00 Nalam, [facility] POCT-GLUCOSE METER 2019-04-13 11:52:00 [facility], [facility] XR CHEST 1 VIEW 2019-04-13 08:26:00 Jude Stewart [facility] PORTABLE/BEDSIDE [facility] POCT-GLUCOSE METER 2019-04-13 05:58:00 Nal, [facility] CBC W/PLT COUNT & AUTO 2019-04-13 04:50:00 Antonio Grace [facility] MAGNESIUM 2019-04-13 04:39:00 Antonio Grace [facility] PHOSPHORUS 2019-04-13 04:39:00 Antonio Grace [facility] BASIC METABOLIC PANEL (7) 2019-04-13 04:39:00 Nalam, [facility] HEPATIC FUNCTION PANEL 2019-04-13 04:39:00 Nalam, [facility] APTT 2019-04-13 04:29:00 Britton Renee [facility] POCT-GLUCOSE METER 2019-04-12 17:20:00 Nalam, [facility] POCT-GLUCOSE METER 2019-04-12 12:05:00 [facility], [facility] XR CHEST 1 VIEW 2019-04-12 06:43:00 Yonathan Mccracken [facility] - PORTABLE/BEDSIDE [facility] POCT-GLUCOSE METER 2019-04-12 05:21:00 Nalam, [facility] MAGNESIUM 2019-04-12 05:17:00 Antonio Grace [facility] PHOSPHORUS 2019-04-12 05:17:00 Sanjay Antonio Vladislav [facility] BASIC METABOLIC PANEL (7) 2019-04-12 05:17:00 [facility] CBC W/PLT COUNT & AUTO 2019-04-12 05:17:00 Antonio Grace [facility] POCT-GLUCOSE METER 2019-04-12 00:04:00 Nalam, [facility] POCT-GLUCOSE METER 2019-04-11 17:35:00 [facility], [facility] XR CHEST 1 VIEW 2019-04-11 13:04:00 Yonathan Mccracken [facility] - PORTABLE/BEDSIDE [facility] POCT-GLUCOSE METER 2019-04-11 12:09:00 Nalam, [facility] POCT-GLUCOSE METER 2019-04-11 10:39:00 [facility]EDURE - 2019-04-11 10:15:36 Mariana [facility] - ENDOSCOPY [facility] UPPER ENDOSCOPY,PEG 2019-04-11 09:00:00 Gabriel Peña [facility] PO[facility]SE METER 2019-04-11 07:01:00 [facility] 2019-04-11 05:28:00 Antonio Grace [facility] PHOSPHORUS 2019-04-11 05:28:00 Antonio Grace [facility] BASIC METABOLIC PANEL (7) 2019-04-11 05:28:00 [facility] PROTHROMBIN TIME/INR 2019-04-11 05:28:00 Reena Mayorga [facility] CBC W/PLT COUNT & AUTO 2019-04-11 05:28:00 Sanjay [facility] POCT-GLUCOSE METER 2019-04-11 00:16:00 Namita [facility] POCT-GLUCOSE METER 2019-04-10 14:51:00 [facility] 1 VIEW 2019-04-10 09:16:00 Yonathan Mccracken [facility] - PORTABLE/BEDSIDE [facility] MAGNESIUM 2019-04-10 04:41:00 Antonio Grace [facility] PHOSPHORUS 2019-04-10 04:41:00 Antonio Grace [facility] BASIC METABOLIC PANEL (7) 2019-04-10 04:41:00 Namita [facility] CBC W/PLT COUNT & AUTO 2019-04-10 04:41:00 Sanjay [facility] POCT-GLUCOSE METER 2019-04-10 00:37:00 Aparnaam [facility] POCT-GLUCOSE METER 2019-04-09 17:19:00 Aparna, [facility] XR ESOPH SWALLOW FUNCTION 2019-04-09 13:56:00 [facility], [facility] - /CINE [facility] BODY FLUID CULTURE + GRAM 2019-04-09 12:10:00 Yonathan Mccracken [facility] POCT-GLUCOSE METER 2019-04-09 11:47:00 Nalam, [facility] POCT-GLUCOSE METER 2019-04-09 09:21:00 Nalam, [facility] XR CHEST 1 VIEW 2019-04-09 06:51:00 Yonathan Mccracken [facility] POCT-GLUCOSE METER 2019-04-09 06:16:00 Aparnaam, [facility] MAGNESIUM 2019-04-09 05:32:00 Sanjay [facility] PHOSPHORUS 2019-04-09 05:32:00 Sanjay [facility] BASIC METABOLIC PANEL (7) 2019-04-09 05:32:00 [facility] CBC W/PLT COUNT & AUTO 2019-04-09 05:32:00 Sanjay [facility] POCT-GLUCOSE METER 2019-04-09 01:56:00 [facility] POCT-GLUCOSE METER 2019-04-08 17:45:00 [facility] POCT-GLUCOSE METER 2019-04-08 12:36:00 [facility], [facility] XR CHEST 1 VIEW 2019-04-08 06:25:00 Yonathan Mccracken [facility] PORTABLE/[facility] POCT-GLUCOSE METER 2019-04-08 05:17:00 Nalam, [facility] MAGNESIUM 2019-04-08 04:12:00 Sanjay [facility] PHOSPHORUS 2019-04-08 04:12:00 Antonio Grace [facility] BASIC METABOLIC PANEL (7) 2019-04-08 04:12:00 [facility] W/PLT COUNT & AUTO 2019-04-08 04:12:00 Antonio Grace [facility] POCT-GLUCOSE METER 2019-04-08 00:22:00 Nalam [facility] BASIC METABOLIC PANEL (7) 2019-04-07 18:08:00 Sean Bates [facility] POCT-GLUCOSE METER 2019-04-07 17:36:00 Nalam, [facility] POCT-GLUCOSE METER 2019-04-07 11:35:00 Nalam, [facility] XR CHEST 1 VIEW 2019-04-07 11:21:[address] [facility] - PORTABLE/BEDSIDE [facility] XR CHEST 1 VIEW 2019-04-07 09:52:00 Yonathan Mccracken [facility] - PORTABLE/BEDSIDE [facility] POCT-GLUCOSE METER 2019-04-07 06:38:00 [facility]alam[facility] MAGN[facility]IUM 2019-04-07 06:07:00 Antonio Grace [facility] PHOSPHORUS 2019-04-07 06:07:00 Antonio Grace [facility] BASIC METABOLIC PANEL (7) 2019-04-07 06:07:00 Sean Bates [facility] CBC W/PLT COUNT & AUTO 2019-04-07 06:07:00 LisacarlitaAntonio yañez [facility] POCT-GLUCOSE METER 2019-04-06 23:48:00 Hal, [facility] POCT-GLUCOSE METER 2019-04-06 17:17:00 Hal, [facility] BASIC METABOLIC PANEL (7) 2019-04-06 16:40:00 Sean Bates [facility] POCT-GLUCOSE METER 2019-04-06 12:37:00 Hal, [facility] XR CHEST 1 VIEW 2019-04-06 06:49:00 [facility] MAGNESIUM 2019-04-06 06:33:00 CombithsAntonio [facility] PHOSPHORUS 2019-04-06 06:33:00 Combiths [facility] BASIC METABOLIC PANEL (7) 2019-04-06 06:33:00 Jana [facility] CBC W/PLT COUNT & AUTO 2019-04-06 06:33:00 Combiths [facility] POCT-GLUCOSE METER 2019-04-06 05:15:00 Hal, [facility] BASIC METABOLIC PANEL (7) 2019-04-05 16:43:00 Jana, [facility] POCT-GLUCOSE METER 2019-04-05 11:21:00 Hal, [facility] MAGNESIUM 2019-04-05 04:50:00 Combiths [facility] PHOSPHORUS 2019-04-05 04:50:00 Combiths [facility] BASIC METABOLIC PANEL (7) 2019-04-05 04:50:00 Jana [facility] CBC W/PLT COUNT & AUTO 2019-04-05 04:50:00 Sanjay [facility] XR CHEST 1 VIEW 2019-04-05 01:58:00 Nawaf [facility] PORTABLE/BEDSIDE [facility] POCT-GLUCOSE METER 2019-04-04 23:42:00 Hal, [facility] POCT-GLUCOSE METER 2019-04-04 17:43:00 Hal, [facility] BASIC METABOLIC PANEL (7) 2019-04-04 16:28:00 Jana, [facility] XR ABDOMEN / KUB 1 VIEW 2019-04-04 15:58:00 Buddy Ford [facility] XR ABDOMEN / KUB 1 VIEW 2019-04-04 15:39:00 Britton Aj [facility] POCT-GLUCOSE METER 2019-04-04 12:09:00 Hal, [facility] XR CHEST 1 VIEW 2019-04-04 08:30:00 Yonathan Mccracken [facility] PORTABLE/BEDSIDE [facility] POCT-GLUCOSE METER 2019-04-04 05:29:00 Hal, [facility] MAGNESIUM 2019-04-04 04:42:00 Antonio Grace [facility] PHOSPHORUS 2019-04-04 04:42:00 Antonio Grace [facility] BASIC METABOLIC PANEL (7) 2019-04-04 04:42:00 Sean Bates [facility] CBC W/PLT COUNT & AUTO 2019-04-04 04:42:00 Antonio Grace [facility] POCT-GLUCOSE METER 2019-04-03 23:54:00 Hal, [facility] POCT-GLUCOSE METER 2019-04-03 17:02:00 Hal, [facility] BASIC METABOLIC PANEL (7) 2019-04-03 15:27:00 Sean Bates [facility] MAGNESIUM 2019-04-03 15:27:00 Carlos Alberto Carab[facility] POCT-GLUCOSE METER 2019-04-03 12:07:00 Jean Marie [facility] POCT-GLUCOSE METER 2019-04-03 05:53:00 Jean Marie [facility] XR CHEST 1 VIEW 2019-04-03 05:14:00 David Sellers [facility] PORTABLE/BEDSIDE [facility] MAGNESIUM 2019-04-03 02:13:00 Antonio Grace [facility] PHOSPHORUS 2019-04-03 02:13:00 Antonio Grace [facility] BASIC METABOLIC PANEL (7) 2019-04-03 02:13:00 Jana, Sean Jamie [facility] CBC W/PLT COUNT & AUTO 2019-04-03 02:13:00 Antonio Grace [facility] POCT-GLUCOSE METER 2019-04-02 23:54:00 Jean Marie [facility] APTT 2019-04-02 22:44:00 [facility] POCT-GLUCOSE METER 2019-04-02 17:26:00 Jean Marie [facility] BASIC METABOLIC PANEL (7) 2019-04-02 16:42:00 Sean Bates [facility] APTT 2019-04-02 16:42:00 [facility] POCT-GLUCOSE METER 2019-04-02 12:20:00 Jean Marie [facility] APTT 2019-04-02 08:12:00 [facility] XR CHEST 1 VIEW 2019-04-02 06:02:00 Carlos Alberto Caraballo [facility] - PORTABLE/BEDSIDE [facility] POCT-GLUCOSE METER 2019-04-02 05:34:00 Jean Marie [facility] APTT 2019-04-02 01:20:00 [facility] BLOOD GAS, ARTERIAL 2019-04-02 01:19:00 Luico Guillory [facility] MAGNESIUM 2019-04-02 01:18:00 Antnoio Grace [facility] PHOSPHORUS 2019-04-02 01:18:00 Antonio Grace [facility] BASIC METABOLIC PANEL (7) 2019-04-02 01:18:00 Sean Bates [facility] CBC W/PLT COUNT & AUTO 2019-04-02 01:18:00 Antonio Grace [facility] POCT-GLUCOSE METER 2019-04-01 23:48:00 Jean Marie [facility] BASIC METABOLIC PANEL (7) 2019-04-01 19:06:00 Sean Bates [facility] APTT 2019-04-01 18:47:00 [facility] POCT-GLUCOSE METER 2019-04-01 17:51:00 [facility]read [facility] POCT-GLUCOSE METER 2019-04-01 11:41:00 Jean [facility] APTT 2019-04-01 11:07:00 Britton Renee [facility] POCT-GLUCOSE METER 2019-04-01 06:26:00 Jean Marie [facility] XR CHEST 1 VIEW 2019-04-01 05:07:00 Buddy Ford [facility] PORTABLE/BEDSIDE [facility] BLOOD GAS, ARTERIAL 2019-04-01 03:25:00 Lucoi Guillory [facility] MAGNESIUM 2019-04-01 03:23:00 Antonio Grace [facility] PHOSPHORUS 2019-04-01 03:23:00 Antonio Grace [facility] BASIC METABOLIC PANEL (7) 2019-04-01 03:23:00 Sean Bates [facility] APTT 2019-04-01 03:23:00 Thelma [facility] CBC W/PLT COUNT & AUTO 2019-04-01 03:23:00 Antonio Grace [facility] POCT-GLUCOSE METER 2019-03-31 23:51:00 Jean Marie [facility] APTT 2019-03-31 22:13:00 Nemdeion [facility] APTT 2019-03-31 19:52:00 Thelma [facility] POCT-GLUCOSE METER 2019-03-31 18:08:00 [facility] I 2019-03-31 13:59:00 Carrol Burroughs [facility] COMPREHENSIVE METABOLIC 2019-03-31 13:59:[address] [facility] PT/APTT 2019-03-31 13:59:00 Carrol Burroughs [facility] MAGNESIUM 2019-03-31 13:59:00 NoCarrol moreau [facility] PHOSPHORUS 2019-03-31 13:59:00 NooriCarrol mckeon [facility] LACTIC ACID, VENOUS 2019-03-31 13:59:00 Lucio Guillory [facility] BASIC METABOLIC PANEL (7) 2019-03-31 13:59:00 Sean Bates [facility] APTT 2019-03-31 13:59:00 Britton Renee [facility] POCT-GLUCOSE METER 2019-03-31 11:50:00 Laya Tabares [facility] XR ABDOMEN / KUB 1 VIEW 2019-03-31 11:33:00 Britton Renee [facility] TROPONIN I 2019-03-31 09:12:00 Lucio Guillory [facility] BLOOD GAS, ARTERIAL 2019-03-31 06:42:00 Lucio Guillory [facility] APTT 2019-03-31 06:42:00 Britton Renee [facility] POCT-GLUCOSE METER 2019-03-31 05:40:00 Laya Tabares [facility] XR CHEST 1 VIEW 2019-03-31 05:29:00 Buddy Ford [facility] PORTABLE/BEDSIDE [facility] APTT 2019-03-31 04:20:00 Britton Renee [facility] BLOOD GAS, ARTERIAL 2019-03-31 03:52:00 Lucio Guillory [facility] LACTIC ACID, VENOUS 2019-03-31 03:51:00 Carrol Burroughs [facility] MAGNESIUM 2019-03-31 03:51:00 Antonio Grace [facility] PHOSPHORUS 2019-03-31 03:51:00 SanjayAntonio [facility] BASIC METABOLIC PANEL (7) 2019-03-31 03:51:00 Sean Bates [facility] CBC W/PLT COUNT & AUTO 2019-03-31 03:51:00 SanjayAntonio Vladislav [facility] B-TYPE NATRIURETIC FACTOR 2019-03-31 01:30:00 Carrol Burroughs [facility] (BNP) [facility] LACTIC ACID, VENOUS 2019-03-31 01:30:00 [facility] 2019-03-31 01:30:00 Pastora [facility] POCT-GLUCOSE METER 2019-03-31 00:17:[address] [facility] TEST DESIGN 2019-03-30 23:54:[address] [facility]IN WITHOUT IV CONTRAST 2019-03-30 23:54:00 Lucio Guillory [facility] POCT-BLOOD GASES, ARTERIAL 2019-03-30 20:53:00 [facility] PO[facility]-SODIUM 2019-03-30 20:53:00 [facility] PO[facility]-POTASSIUM 2019-03-30 20:53:00 Laya Tabares [facility] POCT-GLUCOSE 2019-03-30 20:53:00 [facility] POCT-CALCIUM IONIZED 2019-03-30 20:53:00 [facility] POCT-HEMATOCRIT 2019-03-30 20:53:00 [facility] POCT-HEMOGLOBIN 2019-03-30 20:53:00 [facility] COMPREHENSIVE METABOLIC 2019-03-30 20:44:[address] [facility] TROPONIN I 2019-03-30 20:44:00 Manjeet Carrol Stephens [facility] MAGNESIUM 2019-03-30 20:44:00 Manjeet Carrol Stephens [facility] PHOSPHORUS 2019-03-30 20:44:00 [facility] LACT[facility]ID, VENOUS 2019-03-30 20:44:00 Britton Zamudio [facility] CBC W/PLT COUNT & AUTO 2019-03-30 20:44:00 Manjeet Car[facility] [place] [facility] CHEST 1 VIEW 2019-03-30 20:34:00 Manjeet Carrol Stephens [facility] PORTABLE/BEDSIDE [facility] APTT 2019-03-30 17:57:00 Britton Renee [facility] POCT-GLUCOSE METER 2019-03-30 17:54:00 [facility] BASIC [facility]ABOLIC PANEL (7) 2019-03-30 15:46:00 Sean Bates [facility] APTT 2019-03-30 12:08:00 Britton Renee [facility] POCT-GLUCOSE METER 2019-03-30 11:49:00 [facility]ST 1 VIEW 2019-03-30 07:47:00 Buddy Ford [facility] PORTABLE/BEDSIDE [facility] APTT 2019-03-30 06:32:00 Britton Renee [facility] POCT-GLUCOSE METER 2019-03-30 05:55:00 [facility] MAGNESIUM 2019-03-30 04:31:00 Antonio Grace [facility] PHOSPHORUS 2019-03-30 04:31:00 Antonio Grace [facility] BASIC METABOLIC PANEL (7) 2019-03-30 04:31:00 Sean Bates eph [facility] APTT 2019-03-30 04:31:00 Britton Renee [facility] CBC W/PLT COUNT & AUTO 2019-03-30 04:31:00 Antonio Grace [facility] POCT-GLUCOSE METER 2019-03-30 00:16:00 [facility] POCT-GLUCOSE METER 2019-03-29 18:14:00 [facility] BASIC METABOLIC PANEL (7) 2019-03-29 12:20:00 Buddy Ford [facility] POCT-GLUCOSE METER 2019-03-29 12:18:00 [facility] POCT-GLUCOSE METER 2019-03-29 06:00:00 [facility] 1 VIEW 2019-03-29 04:42:00 Sean Bates [facility] PORTABLE/BEDSIDE [facility] APTT 2019-03-29 03:33:00 Britton Renee [facility] MAGNESIUM 2019-03-29 03:30:00 Antonio Grace [facility] PHOSPHORUS 2019-03-29 03:30:00 Antonio Grace [facility] BASIC METABOLIC PANEL (7) 2019-03-29 03:30:00 Sean Bates [facility] CBC W/PLT COUNT & AUTO 2019-03-29 03:30:00 Antonio Grace [facility] POCT-GLUCOSE METER 2019-03-29 00:23:00 [facility] VANCOMYCIN LEVEL, TROUGH 2019-03-28 20:25:00 Alexandrea Hoffman [facility] APTT 2019-03-28 20:25:00 Britton Renee [facility] POCT-GLUCOSE METER 2019-03-28 17:33:00 [facility] BASIC METABOLIC PANEL (7) 2019-03-28 16:03:00 Sean Bates [facility] APTT 2019-03-28 14:03:00 Britton Renee [facility] POCT-GLUCOSE METER 2019-03-28 12:26:00 Laya Tabares [facility] CYTOLOGY 2019-03-28 08:03:00 Britton Renee [facility] APTT 2019-03-28 06:30:00 Britton Renee [facility] MAGNESIUM 2019-03-28 04:21:00 Antonio Grace [facility] PHOSPHORUS 2019-03-28 04:21:00 Antonio Grace [facility] BASIC METABOLIC PANEL (7) 2019-03-28 04:21:00 Sean Bates [facility] APTT 2019-03-28 04:21:00 Britton Renee [facility] CBC W/PLT COUNT & AUTO 2019-03-28 04:21:00 Antonio Grace [facility] XR CHEST 1 VIEW 2019-03-28 03:24:00 Sean Bates [facility]/BEDSIDE [facility] POCT-GLUCOSE METER 2019-03-28 00:13:00 Laya Tabares [facility] POCT-GLUCOSE METER 2019-03-27 17:40:00 Laya Tabares [facility] BASIC METABOLIC PANEL (7) 2019-03-27 16:05:00 Sean Bates [facility] APTT 2019-03-27 12:05:00 Britton Renee [facility] POCT-GLUCOSE METER 2019-03-27 11:31:00 Laya Tabares [facility] APTT 2019-03-27 05:34:00 Britton Renee [facility] POCT-GLUCOSE METER 2019-03-27 05:05:00 Laya Tabares [facility] MAGNESIUM 2019-03-27 04:32:00 Antonio Grace [facility] PHOSPHORUS 2019-03-27 04:32:00 Antonio Grace [facility] BASIC METABOLIC PANEL (7) 2019-03-27 04:32:00 Sean Bates [facility] CBC W/PLT COUNT & AUTO 2019-03-27 04:32:00 Antonio Grace [facility] XR CHEST 1 VIEW 2019-03-27 03:54:00 Sean Bates [facility]/BEDSIDE [facility] ECHOCARDIOGRAM REPORT - SCAN 2019-03-26 21:11:42 Uday Wilkes lt [facility] APTT 2019-03-26 20:13:00 Britton Renee [facility] IR DRAINAGE CATHETER CHANGE 2019-03-26 19:30:00 Yonathan Mccracken [facility] POCT-GLUCOSE METER 2019-03-26 18:20:00 Laya Tabares [facility] BASIC METABOLIC PANEL (7) 2019-03-26 17:33:00 Britton Renee [facility] APTT 2019-03-26 12:53:00 Britton Renee [facility] POCT-GLUCOSE METER 2019-03-26 11:54:00 Laya Tabares [facility] APTT 2019-03-26 10:27:00 Britton Renee [facility] POCT-GLUCOSE METER 2019-03-26 06:42:00 Laya Tabares [facility] XR CHEST 1 VIEW 2019-03-26 03:58:00 Artur Ariza [facility] BLOOD GAS, ARTERIAL 2019-03-26 03:08:00 Antonio Grace [facility] MAGNESIUM 2019-03-26 03:00:00 Antonio Grace [facility] PHOSPHORUS 2019-03-26 03:00:00 Antonio Grace [facility] BASIC METABOLIC PANEL (7) 2019-03-26 03:00:00 Tomer Lora [facility] APTT 2019-03-26 03:00:00 Britton Renee [facility] CBC W/PLT COUNT & AUTO 2019-03-26 03:00:00 Antonio Grace [facility] POCT-GLUCOSE METER 2019-03-26 00:02:00 Laya Tabares [facility] BASIC METABOLIC PANEL (7) 2019-03-25 20:05:00 Tomer Lora [facility] 2D ECHO W/ DOPPLER 2019-03-25 19:04:43 [facility] (CW/PW/COLOR) [facility] POCT-GLUCOSE METER 2019-03-25 18:10:00 Laya Tabares [facility] CT CHEST WITHOUT IV CONTRAST 2019-03-25 18:00:00 [facility] Cely [facility] CT ABDOMEN/PELVIS WITHOUT IV 2019-03-25 18:00:00 [facility] XR CHEST 1 VIEW 2019-03-25 16:10:00 GucciBritton [facility]/BEDSIDE [facility] APTT 2019-03-25 15:30:00 [facility] BASIC METABOLIC PANEL (7) 2019-03-25 11:46:00 Tomer Lora [facility] BLOOD GAS, ARTERIAL 2019-03-25 11:43:00 Broderick Nieto I [facility] POCT-GLUCOSE METER 2019-03-25 11:40:00 Laya Tabares [facility] APTT 2019-03-25 09:33:00 GucciBritton [facility] BLOOD CULTURE 2019-03-25 09:32:00 [facility] SPUTUM CULTURE + GRAM STAIN 2019-03-25 09:08:00 Dread Renee [facility] URINE CULTURE 2019-03-25 09:08:00 Britton Renee [facility] URINALYSIS W/ REFLEX URINE 2019-03-25 09:08:[address] [facility] ECG 12-LEAD 2019-03-25 08:09:17 Britton Renee [facility] POCT-GLUCOSE METER 2019-03-25 06:06:00 Laya Tabares [facility] XR CHEST 1 VIEW 2019-03-25 04:03:00 Artur Ariza [facility] MAGNESIUM 2019-03-25 03:30:00 Antonio Grace [facility] PHOSPHORUS 2019-03-25 03:30:00 Antonio Grace [facility] BASIC METABOLIC PANEL (7) 2019-03-25 03:30:00 Tomer Lora [facility] APTT 2019-03-25 03:09:00 Britton Renee [facility] CBC W/PLT COUNT & AUTO 2019-03-25 03:09:00 Antonio Grace [facility] POCT-GLUCOSE METER 2019-03-25 00:01:00 Laya Tabares [facility] BASIC METABOLIC PANEL (7) 2019-03-24 20:31:00 Tomer Lora [facility] APTT 2019-03-24 20:31:00 Britton Renee [facility] POCT-GLUCOSE METER 2019-03-24 18:07:00 Laya Tabares [facility] XR CHEST 1 VIEW 2019-03-24 17:12:00 Aurelio Cassidy [facility]/BEDSIDE [facility] XR ABDOMEN / KUB 1 VIEW 2019-03-24 17:12:00 Aurelio Cassidy [facility] BASIC METABOLIC PANEL (7) 2019-03-24 12:36:00 Tomer Lora [facility] APTT 2019-03-24 12:36:00 Britton Renee [facility] POCT-GLUCOSE METER 2019-03-24 12:17:00 Laya Tabares [facility] BLOOD GAS, ARTERIAL 2019-03-24 12:04:00 Gerson Vonnierocio Ponce CH I [facility] EEG EXTENDED MONITORING 40 - 2019-03-24 11:23:00 NemehAden [facility] 60 MINUTES [facility] POCT-GLUCOSE METER 2019-03-24 05:58:00 Tomer Lora [facility] BLOOD GAS, ARTERIAL 2019-03-24 04:29:00 Fredi Acosta [facility] APTT 2019-03-24 04:25:00 Britton Renee [facility] MAGNESIUM 2019-03-24 04:10:00 Antonio Grace [facility] PHOSPHORUS 2019-03-24 04:10:00 Antonio Grace [facility] BASIC METABOLIC PANEL (7) 2019-03-24 04:10:00 Tomer Lora [facility] CBC W/PLT COUNT & AUTO 2019-03-24 04:10:00 Antonio Grace [facility] XR CHEST 1 VIEW 2019-03-24 03:00:00 Artur Ariza [facility] CT BRAIN WITHOUT IV CONTRAST 2019-03-24 01:12:00 Fredi Acosta [facility] POCT-GLUCOSE METER 2019-03-24 00:05:00 Tomer Lora [facility] VANCOMYCIN LEVEL, TROUGH 2019-03-23 23:59:00 Lina Adkins [facility] BASIC METABOLIC PANEL (7) 2019-03-23 19:44:00 Tomer Lora [facility] BASIC METABOLIC PANEL (7) 2019-03-23 15:55:00 Tomer Lora [facility] HEPATIC FUNCTION PANEL 2019-03-23 15:55:00 Tomer Lora [facility] AMMONIA 2019-03-23 15:55:00 Artur Ariza [facility] MAGNESIUM 2019-03-23 05:58:00 Antonio Grace [facility] PHOSPHORUS 2019-03-23 05:58:00 Antonio Grace [facility] BASIC METABOLIC PANEL (7) 2019-03-23 05:58:00 Tomer Lora [facility] APTT 2019-03-23 05:58:00 [facility] BLOOD GAS, ARTERIAL 2019-03-23 05:58:00 Essie [facility] CBC W/PLT COUNT & AUTO 2019-03-23 05:58:00 Antonio Grace [facility] (CELLAVISION MANUAL DIFF) 2019-03-23 05:58:00 Antonio Grace [facility] POCT-GLUCOSE METER 2019-03-23 05:24:00 Tomer Lora [facility] POCT-GLUCOSE METER 2019-03-23 00:09:00 Tomer Lora [facility] APTT 2019-03-22 23:35:00 Britton Renee [facility] BASIC METABOLIC PANEL (7) 2019-03-22 20:05:00 Tomer Lora [facility] PT/APTT 2019-03-22 17:15:00 Tomer Lora [facility] AFB CULTURE + SMEAR 2019-03-22 14:37:[address] [facility] (NON-SPUTUM) [facility] BODY FLUID CELL COUNT WITH 2019-03-22 14:37:00 Tomer Lora [facility] FUNGUS CULTURE + SMEAR 2019-03-22 14:37:00 Tomer Lora [facility] SPIN/CONCENTRATION CHARGE 2019-03-22 14:37:00 Tomer Lora [facility] ADENOSINE DEAMINASE, FLUID 2019-03-22 14:36:00 Tomer Lora [facility] BODY FLUID CULTURE + GRAM 2019-03-22 14:36:00 Tomer Lora [facility] GLUCOSE PLEURAL FLUID 2019-03-22 14:36:00 Tomer Lora [facility] LACTATE DEHYDROGENASE (LD), 2019-03-22 14:36:00 Tomer Lora Ba [facility] PH, BODY FLUID 2019-03-22 14:36:00 Tomer Lora [facility] PROTEIN, TOTAL, PLEURAL 2019-03-22 14:36:00 Tomer Lora [facility] TRIGLYCERIDES, PLEURAL FLUID 2019-03-22 14:36:00 Tomer Lora [facility] ADENOSINE DEAMINASE, FLUID 2019-03-22 14:35:00 Tomer Lora [facility] AFB CULTURE + SMEAR 2019-03-22 14:35:00 Tomer Lora [facility] (NON-SPUTUM) [facility] ALBUMIN PLEURAL FLUID 2019-03-22 14:35:00 Tomer Lora [facility] BODY FLUID CELL COUNT WITH 2019-03-22 14:35:00 Tomer Lora [facility] BODY FLUID CULTURE + GRAM 2019-03-22 14:35:00 Tomer Lora [facility] FUNGUS CULTURE + SMEAR 2019-03-22 14:35:00 Tomer Lora [facility] GLUCOSE PLEURAL FLUID 2019-03-22 14:35:00 Tomer Lora [facility] LACTATE DEHYDROGENASE (LD), 2019-03-22 14:35:00 Tomer Lora Ba [facility] PROTEIN, TOTAL, PLEURAL 2019-03-22 14:35:00 Tomer Lora [facility] PH, BODY FLUID 2019-03-22 14:35:00 Tomer Lora [facility] TRIGLYCERIDES, PLEURAL FLUID 2019-03-22 14:35:00 Tomer Lora [facility] BRONCHIAL CULTURE + GRAM 2019-03-22 14:32:00 Tomer Lora ra [facility] FUNGUS CULTURE + SMEAR 2019-03-22 14:32:00 Tomer Lora [facility] LEGIONELLA CULTURE 2019-03-22 14:32:00 Tomer Lora [facility] AFB CULTURE + SMEAR 2019-03-22 14:32:00 Tomer Lora CH, I [facility] (NON-SPUTUM) [facility] SPIN/CONCENTRATION CHARGE 2019-03-22 14:32:00 Tomer Lora [facility] BLOOD CULTURE 2019-03-22 09:35:00 Britton Renee [facility] BASIC METABOLIC PANEL (7) 2019-03-22 09:35:00 Tomer Lora [facility] APTT 2019-03-22 09:35:00 Britton Renee [facility] XR CHEST 1 VIEW 2019-03-22 08:09:00 Antonio Grace [facility] PORTABLE/BEDSIDE [facility] POCT-GLUCOSE METER 2019-03-22 05:53:00 Tomer Lora [facility] VANCOMYCIN LEVEL, TROUGH 2019-03-22 01:58:00 Josh Keri [facility] MAGNESIUM 2019-03-22 01:58:00 Antonio Grace [facility] PHOSPHORUS 2019-03-22 01:58:00 Antonio Grace [facility] BASIC METABOLIC PANEL (7) 2019-03-22 01:58:00 Tomer Lora [facility] CBC W/PLT COUNT & AUTO 2019-03-22 01:58:00 Antonio Grace [facility] POCT-GLUCOSE METER 2019-03-22 00:30:00 Tomer Lora [facility] BASIC METABOLIC PANEL (7) 2019-03-21 21:52:00 Tomer Lora [facility] TRANSFUSION SERVICE REPORT - 2019-03-21 21:06:03 Provider, Uday macias [facility] BODY FLUID CULTURE + GRAM 2019-03-21 19:34:00 Broderick Nieto [facility] BODY FLUID CELL COUNT WITH 2019-03-21 19:10:00 [facility] FUNGUS CULTURE + SMEAR 2019-03-21 19:10:[address] [facility] PH, BODY FLUID 2019-03-21 19:10:00 Kishore [facility] PROTEIN, TOTAL, PLEURAL 2019-03-21 19:10:00 [facility] TRIGLYCERIDES, PLEURAL FLUID 2019-03-21 19:10:00 Patricia Nieto [facility] ALBUMIN PLEURAL FLUID 2019-03-21 19:09:00 Kishore [facility] GLUCOSE PLEURAL FLUID 2019-03-21 19:09:00 Kishore [facility] LACTATE DEHYDROGENASE (LD), 2019-03-21 19:09:00 Devon Nieto [facility] US DRAINAGE CHEST WITH TUBE 2019-03-21 18:25:00 Tomer Lora Ba [facility] MRSA SCREEN 2019-03-21 08:50:00 Britton Renee [facility] RAPID INFLUENZA A&B SCREEN 2019-03-21 08:50:00 Tomer Lora [facility] RESPIRATORY PANEL [facility] 2019-03-21 08:50:00 Tomer Lora [facility] RETICULOCYTE COUNT 2019-03-21 08:50:00 Tomer Lora [facility] FERRITIN 2019-03-21 08:49:00 Tomer Lora [facility] IRON, TIBC, % SAT. (WITHOUT 2019-03-21 08:49:00 Tomer Lora Baara [facility] LACTATE DEHYDROGENASE (LDH) 2019-03-21 08:49:00 [facility] VIT[facility] AND FOLATE 2019-03-21 08:49:00 Tomer Lora [facility] BASIC METABOLIC PANEL (7) 2019-03-21 08:49:00 Tomer Lora [facility] MAGNESIUM 2019-03-21 08:49:00 Tomer Lora [facility] POCT-GLUCOSE METER 2019-03-21 05:34:00 Tomer Lora [facility] US ABDOMEN LIMITED 2019-03-21 03:55:00 Antonio Grace [facility] MAGNESIUM 2019-03-21 02:03:00 Antonio Grace [facility] PHOSPHORUS 2019-03-21 02:03:00 Antonio Grace [facility] CBC W/PLT COUNT & AUTO 2019-03-21 02:03:00 Antonio Grace [facility] (CELLAVISION MANUAL DIFF) 2019-03-21 02:03:00 Antonio Grace [facility] BASIC METABOLIC PANEL (7) 2019-03-21 00:18:00 Broderick Nieto [facility] MAGNESIUM 2019-03-21 00:18:00 Antonio Grace [facility] POCT-GLUCOSE METER 2019-03-20 23:46:00 Tomer Lora [facility] ECHOCARDIOGRAM REPORT - SCAN 2019-03-20 21:22:37 Uday Wilkes lt [facility] POCT-GLUCOSE METER 2019-03-20 18:11:00 Tomer Lora [facility] BLOOD GAS, ARTERIAL 2019-03-20 16:34:00 Britton Renee [facility] BASIC METABOLIC PANEL (7) 2019-03-20 16:33:00 Broderick Nieto [facility] MAGNESIUM 2019-03-20 16:33:00 Antonio Grace [facility] VANCOMYCIN LEVEL, TROUGH 2019-03-20 12:58:00 Britton Renee [facility] ECG 12-LEAD 2019-03-20 12:42:24 Unknown, Hl7 Doctor [facility] POCT-GLUCOSE METER 2019-03-20 12:14:00 Guido Tomer [facility] 2D ECHO W/ DOPPLER 2019-03-20 11:05:52 Tomer Lora [facility] (CW/PW/COLOR) [facility] CT CHEST WITHOUT IV CONTRAST 2019-03-20 10:45:00 Aden Renee [facility] SPUTUM CULTURE + GRAM STAIN 2019-03-20 06:31:00 Antonio Grace [facility] TROPONIN I 2019-03-20 05:49:00 Antonio Grace [facility] ABORH, MANUAL 2019-03-20 05:48:00 Trista Salmeron [facility] POCT-GLUCOSE METER 2019-03-20 05:44:00 Tomer Lora [facility] XR CHEST 1 VIEW 2019-03-20 04:05:00 Antonio Grace [facility]/BEDSIDE Medical Center BLOOD GAS, ARTERIAL 2019-03-20 03:14:00 Sanjay [facility] BLOOD CULTURE 2019-03-20 03:08:00 Sanjay Antonio Vladislav [facility] VANCOMYCIN LEVEL, RANDOM 2019-03-20 03:00:00 Antonio Grace [facility] B-TYPE NATRIURETIC FACTOR 2019-03-20 03:00:00 Antonio Grace [facility] (BNP) [facility] HEMOGLOBIN A1C 2019-03-20 03:00:00 Sanjay [facility] TSH/FREE T4 IF INDICATED 2019-03-20 03:00:00 Sanjay Antonio Vladislav [facility] PROTHROMBIN TIME/INR 2019-03-20 03:00:00 Sanjay [facility] PT/APTT 2019-03-20 03:00:00 Combiths [facility] LACTIC ACID, VENOUS 2019-03-20 03:00:00 Combith[facility], [facility] FIBRINOGEN 2019-03-20 03:00:00 Carlees [facility] TYPE AND SCREEN, AUTOMATED 2019-03-20 03:00:00 Sanjay [facility] BASIC METABOLIC PANEL (7) 2019-03-20 02:59:00 Combiths [facility] HEPATIC FUNCTION PANEL 2019-03-20 02:59:00 [facility], [facility] MAGNESIUM 2019-03-20 02:59:00 [facility] PHOSPHORUS 2019-03-20 02:59:00 [facility] TROPONIN I 2019-03-20 02:59:00 [facility] LIPID PANEL 2019-03-20 02:59:00 [facility] CBC W/PLT COUNT & AUTO 2019-03-20 02:59:00 Combithkunal [facility] LEGIONELLA URINE ANTIGEN 2019-03-20 02:23:00 Combiths [facility] URINE CULTURE 2019-03-20 02:22:00 Sanjay [facility] SODIUM, RANDOM URINE 2019-03-20 02:22:00 [facility] CHLORIDE, RANDOM URINE 2019-03-20 02:22:00 [facility] CREATININE, RANDOM URINE 2019-03-20 02:22:00 [facility] UREA NITROGEN, RANDOM URINE 2019-03-20 02:22:00 [facility] PROTEIN, RANDOM URINE 2019-03-20 02:22:00 Combcarlitas [facility] OSMOLALITY, URINE 2019-03-20 02:22:00 Combiths Antonio M [facility] URINALYSIS W/ REFLEX URINE 2019-03-20 02:22:[address] [facility] POCT-GLUCOSE METER 2019-03-20 00:39:00 Tomer Lora [facility] ECG 12-LEAD 2019-03-20 00:28:11 Unknown, Hl7 Doctor [facility] REPORT OF PROCEDURE - 2019-01-28 13:40:05 Provider, Default [facility] ENDOSCOPY SCAN Scanning [facility] RHYTHM STRIP - SCAN 2019-01-28 13:40:02 Provider, [facility] BASIC METABOLIC PANEL (7) 2019-01-24 04:31:00 Josue Rich [facility] MAGNESIUM 2019-01-24 04:31:00 Jose [facility] PHOSPHORUS 2019-01-24 04:31:00 Jose [facility] CBC W/PLT COUNT & AUTO 2019-01-24 04:31:00 Josue Rich [facility] TROPONIN I 2019-01-23 21:59:00 [facility] ECHOC[facility]IO[facility] REPORT - SCAN 2019-01-23 21:21:25 [facility] TROPONIN I 2019-01-23 16:02:00 Josue Rich [facility] TSH/FREE T4 IF INDICATED 2019-01-23 10:13:00 [facility] TROP[facility] I 2019-01-23 10:13:00 Josue Rich [facility] B-TYPE NATRIURETIC FACTOR 2019-01-23 10:13:00 Josue Rich [facility] (BNP) [facility] ECG 12-LEAD 2019-01-23 09:00:25 Hilario [facility] MRA HEAD WITHOUT IV CONTRAST 2019-01-23 08:01:00 Josue Rich [facility] BASIC METABOLIC PANEL (7) 2019-01-23 04:59:00 Josue Rich CH, I [facility] MAGNESIUM 2019-01-23 04:59:00 Josue Rich [facility] CBC W/PLT COUNT & AUTO 2019-01-23 04:59:00 Josue Rich [facility] S [facility] POTASSIUM 2019-01-22 19:43:00 Josue Rich [facility] MR BRAIN WITHOUT IV CONTRAST 2019-01-22 18:11:00 Aden Hamilton [facility] CTA BRAIN 2019-01-22 16:59:00 [facility] 2019-01-22 16:59:00 Laureano [facility] 2D ECHO W/ DOPPLER 2019-01-22 13:16:[facility] (CW/PW/COLOR) [facility] LIPID PANEL 2019-01-22 04:17:00 [facility] HEMOGLOBIN A1C 2019-01-22 04:17:00 [facility] TROPONIN I 2019-01-22 04:17:00 [facility] MAGNESIUM 2019-01-22 04:17:00 Hilario Josue [facility] BASIC METABOLIC PANEL (7) 2019-01-21 23:26:00 [facility] TROPONIN I 2019-01-21 23:26:00 [facility] TSH/FREE T4 IF INDICATED 2019-01-21 23:26:00 Iris Freeman [facility] RPR 2019-01-21 23:26:00 Iris Freeman [facility] VITAMIN B12 AND FOLATE 2019-01-21 23:26:00 Iris Freeman [facility] PROTHROMBIN TIME/INR 2019-01-21 23:26:00 Iris Freeman [facility] CBC W/PLT COUNT & AUTO 2019-01-21 23:26:00 Britton Hamilton [facility] XR CHEST 1 VIEW 2019-01-21 23:19:00 Iris Freeman [facility] - PORTABLE/BEDSIDE Medical Center Plan of Care Planned Activity Planned Date Details Comments Source Future Scheduled 2019-10-28 INFLUENZA VACCINE (#1) [facility] - Test 00:00:00 [code = INFLUENZA Medical Ce nter VACCINE (#1)] Future Scheduled 1960 PNEUMOCOCCAL VACCINE [facility] - Test 00:00:00 2-64 YEARS AT RISK (1 [facility] of 1 - PPSV23) [code = PNEUMOCOCCAL VACCINE 2-64 YEARS AT RISK (1 of 1 - PPSV23)] Future Scheduled 1955 Screening for [facility] - Test 00:00:00 [facility] (procedure) [code = 394071047] Encounters Start End Encounter Admission Attending Care Care Encounter Source Date/Time Date/Time Type Type Clinicians Facility Department ID 2019-08-20 2019-08-20 Refill NATAN Edmond [id number] [id number] 00:00:00 00:00:00 Kinjal Figueroa 350.1.13.10 [place] 4.2.7.2.686 Profamador [id number] [address] 2019-08-08 2019-08-08 Orders Doctor HYACINTH [id number] 00:00:00 00:00:00 Only Unassigned, MARIO 350.1.13.10 [place] [facility] 4.2.7.2.686 [id number] 2019-08-07 2019-08-07 Office NATAN Edmond 1.2.840.114 [id number] 948 13:49:25 22:20:07 Visit Kinjal Figueroa 350.1.13.10 [place] 4.2.7.2.686 Professlili [id number] [address] 2019-05-08 2019-05-08 Office CORNELL Andrews 1.2.840.114 [id number] 10:44:48 16:34:59 Visit Fernando AMBULATOR 350.1.13.21 Y 0.2.7.2.686 [id number] Results Test Description Test Time Test Comments Results Result Comments Source POC-Glucose meter 2019-06-09 18:49:00 Test Item Value Reference Range Interpretation Comme nts POC-Glucose Meter (test code = 72 mg/dL 70-110 : [facility], 770 30: 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 ID = [id number] for HOUSTON ECHOLSLEY Lab Interpretation (test code = Normal 75909-7) [facility] [id number] 18:49:00 Test Item Value Reference Range Interpretation Comments POC-GLUCOSE METER 72 mg/dL 70-110 : TESTED A T [facility] (BEAKER) (test code = ILDA Calvert [facility], 1538) 16150: 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 ID = [id number] for RYAN NICE POCT-GLUCOSE [id number] 13:07:00 Test Item Value Reference Range Interpretation Comments POC-GLUCOSE METER 83 mg/dL 70-110 : TESTED A T [facility] (BEAKER) ([facility] = [facility], 1538) 9[address]20: 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 ID = [id number] for RYAN NICE Comprehensive metabolic [id number] 12:12:00 Test Item Value Reference Range Interpretation Comments Protein, Total (test 6.7 6.0- 8.3 gm/dL Speci men slightly code = 2885-2) hemolyzed Albumin (test code = 2.1 g/dL 3.5-5 L Specime n slightly 93724-1) hemolyzed Alkaline Phosphatase 202 U/L 40-150 H (test code = 6768-6) Total Bilirubin (test 1.2 mg/dL 0.2-1.2 Specim en slightly code = 1975-2) hemolyzed Sodium (test code = 142 meq/L 666-665 6972-2) Potassium (test code = 4.4 meq/L 3.5-5.1 Speci men slightly 2823-3) hemolyzed Chloride (test code = 107 meq/L 98-107 2075-0) CO2 (test code = 30 meq/L 22-29 H 2028-9) BUN (test code = 25 mg/dL 7-21 H 3094-0) Creatinine (test code 0.76 mg/dL 0.57-1.25 Specim en slightly = 2160-0) hemolyzed Glucose (test code = 108 mg/dL 70-105 H 2345-7) Calcium (test code = 7.9 mg/dL 8.4-10.2 L 13329-7) AST (test code = 77 U/L 5-34 H Specimen sl ightly 1920-8) hemolyzed ALT (test code = 86 U/L 6-55 H Specimen sl ightly 1742-6) hemolyzed EGFR (test code = 103 mL/min/1.73 [place] [address]-1) NOT ACCURATE CREATININE CLEARANCE IN PREDICTING GLOMERULAR FILTRATION RATE . ESTIMATED GFR I S NOT APPLICABLE FOR DIALYSIS PATIENTS. DORI (test code = DORI) Computer Installer ID - ELISSA M Lab Interpretation Abnormal (test code = 94829-6) [facility] [id number] 12:12:00 Test Item Value Reference Range Interpretation [...] S NOT APPLICABLE FOR DIALYSIS PATIEN TS. Computer Installer ID - ELISSA MPOCT-GLUCOSE [id number] 06:17:00 Test Item Value Reference Range Interpretation Comments POC-GLUCOSE METER 105 mg/dL 70-110 : TESTED A T [facility] ([facility]) (test code = [facility], [facility]) 65203: 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 ID = [id number] for DO MINGUEZ, ELIDIA POCT-GLUCOSE [id number] 23:52:00 Test Item Value Reference Range Interpretation Comments POC-GLUCOSE METER 97 mg/dL 70-110 : TESTED A T [facility] ([facility]) (test code = [facility], [facility]) 07839: 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 ID = [id number] for DULCE IVISROCHELLE, ELIDIA POCT-GLUCOSE [id number] 18:31:00 Test Item Value Reference Range Interpretation Comments POC-GLUCOSE METER 102 mg/dL 70-110 : TESTED A T [facility] (BEAKER) (test code = [facility], [facility]) 24720: 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 ID = [id number] for CO RTEZ, JOSY POCT-GLUCOSE [id number] 17:27:00 Test Item Value Reference Range Interpretation Comments POC-GLUCOSE METER 106 mg/dL 70-110 : [facility] (test code = [facility], [facility]8) 82277: 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 ID = [id number] for RA GLAND, LATOYA POCT-GLUCOSE [id number] 23:31:00 Test Item Value Reference Range Interpretation Comments POC-GLUCOSE METER 101 mg/dL 70-110 : TESTED A T [facility] (BEAKER) (test code = [facility], 153) 53404: 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 ID = [id number] for RA GLAND, LATOYA POCT-GLUCOSE [id number] 18:53:00 Test Item Value Reference Range Interpretation Comments POC-GLUCOSE METER 89 mg/dL 70-110 : TESTED A T [facility] (BEAKER) (test code [facility], 85[address]: = 1538) 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 ID = [id number] for VALORIE HONG JAX POCT-GLUCOSE [id number] 17:25:00 Test Item Value Reference Range Interpretation Comments POC-GLUCOSE METER 67 mg/dL 70-110 L : TESTED A T [facility]20 (BEAKER) (test code = [facility], 1538) 56367: 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 ID = [id number] for DE LA ROSA-DELUNA, KIRSTEN POCT-GLUCOSE [id number] 14:28:00 Test Item Value Reference Range Interpretation Comments POC-GLUCOSE METER 88 mg/dL 70-110 : TESTED A T [facility] (BEAKER) (test code = [facility], 153) 37408: 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 ID = [id number] for DE LA ROSA-DELUNA, KIRSTEN POCT-GLUCOSE [id number] 06:27:00 Test Item Value Reference Range Interpretation Comments POC-GLUCOSE METER 101 mg/dL 70-110 : TESTED A T [facility] (BEAKER) (test code = [facility], 1538) 99247: 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 ID = [id number] for RA GLAND, LATOYA POCT-GLUCOSE [id number] 23:55:00 Test Item Value Reference Range Interpretation Comments POC-GLUCOSE METER 97 mg/dL 70-110 : TESTED A T [facility] (BEAKER) (test code = [facility], 153) 22525: 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 ID = [id number] for RAGL AND, LATOYA POCT-GLUCOSE [id number] 17:59:00 Test Item Value Reference Range Interpretation Comments POC-GLUCOSE METER 92 mg/dL 70-110 : TESTED A T [facility] (BEAKER) (test code = [facility], 1538) 94326: 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 ID = [id number] for Leeanna Norwood POCT-GLUCOSE [id number] 12:15:00 Test Item Value Reference Range Interpretation Comments POC-GLUCOSE METER 103 mg/dL 70-110 : TESTED A T [facility] (BEAKER) (test code = [facility], 1538) 60578: 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 ID = [id number] for Leeanna Kelley POCT-GLUCOSE [id number] 05:55:00 Test Item Value Reference Range Interpretation Comments POC-GLUCOSE METER 105 mg/dL 70-110 : TESTED A T [facility] (BEAKER) (test code = [facility], 1538) 22808: 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 ID = [id number] for ANABEL AGUIAR AHMET COMPREHENSIVE METABOLIC [id number] 04:31:00 Test Item Value Reference Range Interpretation [...] S NOT APPLICABLE FOR DIALYSIS PATIEN TS. Computer Installer ID - SANDRA WPOCT-GLUCOSE [id number] 00:14:00 Test Item Value Reference Range Interpretation Comments POC-GLUCOSE METER 106 mg/dL 70-110 : TESTED A T [facility] (BEAKER) (test code = [facility], 1538) 11169: 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 ID = [id number] for UE COSME, AHMET POCT-GLUCOSE [id number] 19:00:00 Test Item Value Reference Range Interpretation Comments POC-GLUCOSE METER 111 mg/dL 70-110 H : TESTED A T [facility] (BEAKER) (test code = [facility], 1538) 20342: 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 ID = [id number] for CO RTEZ, JOSY POCT-GLUCOSE [id number] 17:05:00 Test Item Value Reference Range Interpretation Comments POC-GLUCOSE METER 101 mg/dL 70-110 : TESTED A T [facility] (BEAKER) (test code = [facility], 1538) 82727: 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 ID = [id number] for CO RTEZ, JOSY [id number] 17:03:00 Test Item Value Reference Range Interpretation Comments Potassium (test code = 3.9 meq/L 3.5-5.1 2823-3) DORI (test code = DORI) Computer Installer ID - BS Lab Interpretation (test Normal code = 41077-0) [facility]OT[facility]2020-[facility] 17:03:00 Test Item Value Reference Range Interpretation Comments POTASSIUM (BEAKER) (test code = 3.9 meq/L 3.5-5.1 379) Computer Installer ID - BSBlood Culture - Routine (Right Venipuncture)2019-06-05 10:00:00 Test Item Value Reference Range Interpretation Comments Result (test code = No growth in 5 days 6463-4) [facility]BLO[facility] [id number] 10:00:00 Test Item Value Reference Range Interpretation Comments CULTURE (BEAKER) (test No growth in 5 days code = 1095) Basic Metabolic [id number] 06:28:00 Test Item Value Reference Range Interpretation Comments Sodium (test code = 145 meq/L 607-975 3861-2) Potassium (test code = 3.0 meq/L 3.5-5.1 L 2823-3) Chloride (test code = 101 meq/L 98-107 2075-0) CO2 (test code = 38 meq/L 22-29 H 2028-9) BUN (test code = 28 mg/dL 7-21 H 3094-0) Creatinine (test code 0.87 mg/dL 0.57-1.25 = 2160-0) Glucose (test code = 110 mg/dL 70-105 H 2345-7) Calcium (test code = 7.9 mg/dL 8.4-10.2 L 92607-0) EGFR (test code = 88 mL/min/1.73 [place] [address]-7) NOT ACCURATE CREATININE CLEARANCE IN PREDICTING GLOMERULAR FILTRATION RATE . ESTIMATED GFR I S NOT APPLICABLE FOR DIALYSIS PATIENTS. DORI (test code = DORI) Computer Installer ID - PIAYA L Lab Interpretation Abnormal (test code = 01069-5) [facility] Hospital[facility]IC [facility]OLIC [id number] 06:28:00 Test Item Value Reference Range Interpretation [...] S NOT APPLICABLE FOR DIALYSIS PATIEN TS. Computer Installer ID - PIAYA LPOCT-GLUCOSE [id number] 06:13:00 Test Item Value Reference Range Interpretation Comments POC-GLUCOSE METER 119 mg/dL 70-110 H : TESTED A T [facility] (BEAKER) (test code = [facility], 1538) 17366: 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 ID = [id number] for UAHMET BRAY BLOOD [id number] 03:01:00 Test Item Value Reference Range Interpretation Comments CULTURE (BEAKER) (test No growth in 5 days code = 1095) POCT-GLUCOSE [id number] 00:16:00 Test Item Value Reference Range Interpretation Comments POC-GLUCOSE METER 92 mg/dL 70-110 : TESTED A T [facility] (BEAKER) (test code = [facility], 1538) 99930: 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 ID = [id number] for AHMET JONES POCT-GLUCOSE [id number] 17:55:00 Test Item Value Reference Range Interpretation Comments POC-GLUCOSE METER 104 mg/dL 70-110 : TESTED A T [facility] (BEAKER) (test code = [facility], 1538) 26749: 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 ID = [id number] for AN LAZARALOGEM FL, ESOPH, SWALLOW FUNCTION, WITH CINE OR [id number] 15:08:00Reason for exam:->dysphagiaFINAL REPORT EXAMINATION: Modified barium [...] Lucas Verified Date/Time: 06/04/2019 15:08:42 Reading Location: [address] Transitional Reading Room [place] esoph swallow funct with cine [id number] 15:08:00 Interface, External Ris In - 06/09/2019 [...] Lucas Verified Date/Time: 06/04/2019 15:08:42 Reading Location: [address] Transitional Reading Room Electronically signed by: FREDI LUCAS MDon 06/04/2019 03:08 [facility] [id number] 11:56:00 Test Item Value Reference Range Interpretation Comments POC-GLUCOSE METER 111 mg/dL 70-110 H : TESTED A T [facility] (BEAKER) (test code = [facility], 1538) 47568: 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 ID = [id number] for AN GEM CUMMINGS POCT-GLUCOSE [id number] 06:18:00 Test Item Value Reference Range Interpretation Comments POC-GLUCOSE METER 110 mg/dL 70-110 : TESTED A T [facility] (BEAKER) (test code = [facility], 1538) 56394: 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 ID = [id number] for DO ELIDIA SIMS COMPREHENSIVE METABOLIC [id number] 05:51:00 Test Item Value Reference Range Interpretation [...] S NOT APPLICABLE FOR DIALYSIS PATIEN TS. Computer Installer ID - ELISSA MCBC with platelet count + automated [id number] 05:29:00 Test Item Value Reference Range Interpretation [...] 450 K/CU MM MPV (test code = 24189-0) 12.3 fL 9.4-12.4 nRBC (test code = [...] 2801) Lab Interpretation (test code = Abnormal 52427-6) [facility] W/PLT COUNT & AUTO [id number] 05:29:00 Test Item Value Reference Range Interpretation [...] (BEAKER) (test code = 2801) U/S, ABDOMINAL, [id number] 04:00:00Abdomen limited area? Add comment if clarification [...] the patient's elevated LFTs. Signed: Reji Tyler Verified Date/Time:06/04/2019 04:00:37 US abdomen [id number] 04:00:00 Interface, External Ris In - 06/04/2019 [...] LFTs.Signed: Reji Tyler Verified Date/Time: 06/04/2019 04:00:37 [facility] [id number] 23:50:00 Test Item Value Reference Range Interpretation Comments POC-GLUCOSE METER 115 mg/dL 70-110 H : TESTED A T [facility] (iPowerUpAKER) (test code = [employer] [facility], 1538) 85149: 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 ID = [id number] for ELIDIA VALDES POCT-GLUCOSE [id number] 18:03:00 Test Item Value Reference Range Interpretation Comments POC-GLUCOSE METER 126 mg/dL 70-110 H : TESTED A T [facility] (BEAKER) (test code = [facility], 1538) 03186: 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 ID = [id number] for ALAN BONILLA LIZETTE [id number] 15:27:00 Test Item Value Reference Range Interpretation Comments Ammonia (test code = 82 18- 72 mol/L H 83060-0) DORI (test code = DORI) Computer Installer ID - BS Lab Interpretation (test Abnormal code = 98863-8) [facility] HospitalAMMONIA2020-04-07 15:27:00 Test Item Value Reference Range Interpretation Comments AMMONIA (BEAKER) (test code = 348) 82 mol/L 18-72 H Computer Installer ID - BSMRSA [id number] 12:47:00 Test Item Value Reference Range Interpretation Comments Result (test code = 6463-4) No MRSA isolated [facility] HospitalMRSA [id number] 12:47:00 Test Item Value Reference Range Interpretation Comments CULTURE (BEAKER) (test code No MRSA isolated = 1095) POCT-GLUCOSE [id number] 12:25:00 Test Item Value Reference Range Interpretation Comments POC-GLUCOSE METER 123 mg/dL 70-110 H : TESTED A T [facility] (BEAKER) (test code = [facility], 1538) 44034: 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 ID = [id number] for ALAN BONILLA POCT-GLUCOSE [id number] 06:32:00 Test Item Value Reference Range Interpretation Comments POC-GLUCOSE METER 106 mg/dL 70-110 : TESTED A T [facility] 6720 (BEAKER) (test code = [facility], 1538) 05590: 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 ID = [id number] for ELIDIA VALDES [id number] 06:13:00 Test Item Value Reference Range Interpretation Comments Magnesium (test code = 2.2 mg/dL 1.6-2.6 Speci men 93823-4) slightly hemolyzed DORI (test code = DORI) Computer Installer ID - BS Lab Interpretation Normal (test code = 06039-5) [facility]MAGNESIUM2020-04-07 06:13:00 Test Item Value Reference Range Interpretation Comments MAGNESIUM (BEAKER) 2.2 mg/dL 1.6-2.6 Specimen slightly (test code = 627) hemolyzed Computer Installer ID - BSCOMPREHENSIVE METABOLIC [id number] 06:13:00 Test Item Value Reference Range Interpretation [...] S NOT APPLICABLE FOR DIALYSIS PATIEN TS. Computer Installer ID - BSCBC W/PLT COUNT & AUTO [id number] 05:58:00 Test Item Value Reference Range Interpretation [...] PERCENT (BEAKER) (test code = 2801) POCT-GLUCOSE [id number] 00:22:00 Test Item Value Reference Range Interpretation Comments POC-GLUCOSE METER 133 mg/dL 70-110 H : TESTED A T [facility] 6720 (BEAKER) (test code = [facility], 1538) 03506: 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 ID = [id number] for ELIDIA VALDES POCT-GLUCOSE [id number] 18:09:00 Test Item Value Reference Range Interpretation Comments POC-GLUCOSE METER 129 mg/dL 70-110 H : TESTED A T [facility] (BEAKER) (test code = [facility], 1538) 66183: 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 ID = [id number] for DE NNIS, RYAN BASIC METABOLIC [id number] 16:10:00 Test Item Value Reference Range Interpretation [...] S NOT APPLICABLE FOR DIALYSIS PATIEN TS. Computer Installer ID - BSPOCT-GLUCOSE [id number] 12:41:00 Test Item Value Reference Range Interpretation Comments POC-GLUCOSE METER 120 mg/dL 70-110 H : TESTED A T [facility]20 (BEAKER) (test code = [facility], 1538) 30835: 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 ID = [id number] for DE NNIS, RYAN Blood gas, [id number] 08:24:00 Test Item Value Reference Range Interpretation Comments pH, Arterial (test code = 2744-1) 7.57 7.35-7.45 H pCO2, Arterial (test code = 50 35- 45 mmHg H 2019-8) pO2, Arterial (test code = 68 80- [...] % Lab Interpretation (test code = Abnormal 33247-5) [facility] GAS, [id number] 08:24:00 Test Item Value Reference Range Interpretation [...] (test code = 1819) 21.0 % POCT-GLUCOSE [id number] 08:22:00 Test Item Value Reference Range Interpretation Comments POC-GLUCOSE METER 143 mg/dL 70-110 H : TESTED A T [facility] (BEAKER) (test code = [facility]OT[facility]AVI [address] [facility], 1538) 01691: 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 ID = [id number] for MS IBI MNCEDISI ECG 12 [id number] 07:02:11Interface, External Ris In - 06/02/2019 7:02 AM CDTVentricular Rate 83 BPMAtrial Rate 76 BPMQRS Duration 122 msQ-T Interval 376 msQTC Calculation(Bazett) 441 msR [place] 9 degreesT [place] 168 degreesAtrial fibrillationLeft ventricular hypertrophy with QRS wideningNonspecific ST and T wave abnormalityAbnormal ECGWhen compared with ECG of 30-MAY-2019 19:25,No significant change was foundConfirmed by MD SANAZ, GETACHWE ([id number]) on 06/02/2019 7:02:10 [facility]2020-04-06 03:10:00 Test Item Value Reference Range Interpretation Comments MAGNESIUM (BEAKER) (test code = 1.9 mg/dL 1.6-2.6 627) Computer Installer ID - SANDRA WCOMPREHENSIVE METABOLIC [id number] 02:30:00 Test Item Value Reference Range Interpretation [...] S NOT APPLICABLE FOR DIALYSIS PATIEN TS. Computer Installer ID - SANDRA WVancomycin level, [id number] 02:22:00 Test Item Value Reference Range Interpretation Comments Vancomycin Tr (test code = 32.2 ug/mL 10-20 4092-3) DORI (test code = DORI) Computer Installer ID - SANDRA W Lab Interpretation (test Abnormal code = 70359-1) [facility] HospitalVANCOMYCIN LEVEL, [id number] 02:22:00 Test Item Value Reference Range Interpretation Comments VANCOMYCIN TROUGH (BEAKER) (test 32.2 ug/mL 10.0-20.0 code = 522) Computer Installer ID - SANDRA WCBC W/PLT COUNT & AUTO [id number] 02:07:00 Test Item Value Reference Range Interpretation [...] PERCENT (BEAKER) (test code = 2801) POCT-GLUCOSE [id number] 23:29:00 Test Item Value Reference Range Interpretation Comments POC-GLUCOSE METER 93 mg/dL 70-110 : TESTED A T [facility]20 (BEAKER) (test code = [facility], 1538) 63892: 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 ID = [id number] for MSIB I, MNCEDISI POCT-GLUCOSE [id number] 18:01:00 Test Item Value Reference Range Interpretation Comments POC-GLUCOSE METER 80 mg/dL 70-110 : TESTED A T [facility] (BEAKER) (test code = [facility], 1538) 14626: 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 ID = [id number] for GEM MOREJON 2D Echo W/Doppler(CW/PW/Color)2019-06-01 17:21:41Ejection FractionSLEH ECHO HEARTLAB MKCKESSON CPACSInterface, External Ris In - 06/01/2019 5:21 PM C DTTransthoracic Echocardiography Report (TTE) Demographics Patient Name JOHN DELUNA Date of Study 06/01/2019 Gender Male Visit Number [id number] Race Unknown Room Number C724 Number Date of 1955 Referring Physician Ole Dominguez MD Age 63 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(s) 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 Computer Installer ID Sultana SCOTT [id number] 11:30:00 Test Item Value Reference Range Interpretation Comments Phosphorus (test code = 4.3 mg/dL 2.3-4.7 2777-1) DORI (test code = DORI) Computer Installer ID - SONIA F Lab Interpretation (test Normal code = 01726-7) [facility]PHOSPHORUS2020-04-05 11:30:00 Test Item Value Reference Range Interpretation Comments PHOSPHORUS (BEAKER) (test code = 4.3 mg/dL 2.3-4.7 604) Computer Installer ID Sultana SCOTT [id number] 11:30:00 Test Item Value Reference Range Interpretation Comments MAGNESIUM (BEAKER) (test code = 1.7 mg/dL 1.6-2.6 627) Computer Installer ID Sultana SCOTT FCBC W/PLT COUNT & AUTO [id number] 11:20:00 Test Item Value Reference Range Interpretation [...] PERCENT (BEAKER) (test code = 2801) POCT-GLUCOSE [id number] 07:42:00 Test Item Value Reference Range Interpretation Comments POC-GLUCOSE METER 82 mg/dL 70-110 : TESTED A T [facility] 6720 (BEAKER) (test code = [facility], 1538) 40907: 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 ID = [id number] for RAGL AND, LATOYA POCT-GLUCOSE [id number] 23:33:00 Test Item Value Reference Range Interpretation Comments POC-GLUCOSE METER 90 mg/dL 70-110 : TESTED A T [facility] 6720 (BEAKER) (test code = [facility], 1538) 65076: 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 ID = [id number] for RAGL AND, LATOYA POCT-GLUCOSE [id number] 18:34:00 Test Item Value Reference Range Interpretation Comments POC-GLUCOSE METER 83 mg/dL 70-110 : TESTED A T [facility] 6720 (BEAKER) (test code = [facility], 1538) 08973: 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 ID = [id number] for ANGU LO, GEM POCT-GLUCOSE [id number] 18:27:00 Test Item Value Reference Range Interpretation Comments POC-GLUCOSE METER 88 mg/dL 70-110 : TESTED A T [facility] 6720 (BEAKER) (test code = ILDA Calvert [facility], 1538) 45976: 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 ID = [id number] for GEM MOREJON POCT-GLUCOSE [id number] 18:22:00 Test Item Value Reference Range Interpretation Comments POC-GLUCOSE METER 84 mg/dL 70-110 : TESTED A T [facility] 6720 (BEAKER) (test code = ILDA Calvert [facility], 1538) 74467: 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 ID = [id number] for ELIDIA BLACKWOOD Prothrombin time/[id number] 11:01:00 Test Item Value Reference Range Interpretation [...] valves. Lab Interpretation Abnormal (test code = 10842-2) [id number]:01:00 Test Item Value Reference Range Interpretation [...] for patients wiht mechanical heart valves.Hepatitis panel, [id number] 09:24:00 Test Item Value Reference Range Interpretation Comments Hep A IgM (test code = Reactive Nonreactive A 79959-6) Hep B C IgM (test code = Nonreactive Nonreactive 73482-1) Hepatitis C Ab (test Nonreactive Nonreactive code = 39938-2) HBsAg Screen (test code Nonreactive Nonreactive = 5195-3) DORI (test code = DORI) Computer Installer ID Sultana SCOTT F Lab Interpretation (test Abnormal code = 92952-8) [facility] [id number] 09:24:00 Test Item Value Reference Range Interpretation Comments HEPATITIS A IGM ANTIBODY (BEAKER) Reactive Nonreactive A (test code = 498) HEPATITIS B CORE IGM ANTIBODY Nonreactive Nonreactive (BEAKER) (test code = 645) HEPATITIS C ANTIBODY (BEAKER) Nonreactive Nonreactive (test code = 367) HEPATITIS B SURFACE ANTIGEN (2) Nonreactive Nonreactive (BEAKER) (test code = 2585) Computer Installer ID Sultana SCOTT FB-type Natriuretic Factor (BNP)2019-05-31 09:06:00 Test Item Value Reference Range Interpretation Comments BNP (test code = 13865-1) 1536 pg/mL 0-100 H DORI (test code = DORI) Computer Installer ID Sultana MARQUEZ W Lab Interpretation (test Abnormal code = 17523-2) [facility] (BNP)2019-05-31 09:06:00 Test Item Value Reference Range Interpretation Comments B-TYPE NATRIURETIC PEPTIDE 1536 pg/mL 0-100 H (BEAKER) (test code = 700) Computer Installer ID Sultana MARQUEZ WCOMPREHENSIVE METABOLIC [id number] 09:02:00 Test Item Value Reference Range Interpretation [...] S NOT APPLICABLE FOR DIALYSIS PATIEN TS. Computer Installer ID Sultana RichardsLake Worthcomycin level, [id number] 08:59:00 Test Item Value Reference Range Interpretation Comments Vancomycin Rm (test 18.6 ug/mL code = 53476-8) DORI (test code = Reference Range: No DORI) NormalsOperator ID - ALMA Richards [facility] HospitalY[facility] LEVEL, [id number] 08:59:00 Test Item Value Reference Range Interpretation Comments VANCOMYCIN RANDOM (BEAKER) (test 18.6 ug/mL code = 523) Reference Range: No NormalsOperator ID Sultana MARQUEZ WCBC W/PLT COUNT & AUTO [id number] 08:43:00 Test Item Value Reference Range Interpretation [...] (BEAKER) (test code = 2801) Creatinine, random [id number] 05:47:00 Test Item Value Reference Range Interpretation Comments Creatinine, Ur 24.9 mg/dL (test code = 2161-8) DORI (test code = Reference Range: No DORI) NormalsOperator ID - PIAYA L [facility], [facility] [id number] 05:47:00 Test Item Value Reference Range Interpretation Comments Sodium Urine (test 59 meq/L code = 2955-3) DORI (test code = Reference Range: No DORI) NormalsOperator ID - PIAYA L [facility] Nitrogen, random [id number] 05:47:00 Test Item Value Reference Range Interpretation Comments Urea Nitrogen, Ur 332 mg/dL (test code = 3095-7) DORI (test code = Reference Range: No DORI) NormalsOperator ID - PIAYA L [facility] HospitalCREATININE, RANDOM [id number] 05:47:00 Test Item Value Reference Range Interpretation Comments CREATININE URINE (BEAKER) (test 24.9 mg/dL code = 375) Reference Range: No NormalsOperator ID - PIAYA LSODIUM, RANDOM [id number] 05:47:00 Test Item Value Reference Range Interpretation Comments SODIUM URINE (BEAKER) (test code = 59 meq/L 243) Reference Range: No NormalsOperator ID - PIAYA LUREA NITROGEN, RANDOM URINE 2019-05-31 05:47:00 Test Item Value Reference Range Interpretation Comments UREA NITROGEN URINE (BEAKER) (test 332 mg/dL code = 538) Reference Range: No NormalsOperator ID - PIAYA LPOCT-GLUCOSE [id number] 00:03:00 Test Item Value Reference Range Interpretation Comments POC-GLUCOSE METER 89 mg/dL 70-110 : TESTED A T [facility] 6720 (BEAKER) (test code = ILDA aClvert [facility], 1538) [address]: 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 ID = [id number] for ELIDIA BLACKWOOD RAD, CHEST, 1 VIEW, NON [id number] 22:00:00Reason for exam:->Pt with noted OSH R [...] 22:00:23 XR chest 1 view portable / [id number] 22:00:00Interface, External Ris In - 05/30/2019 10:02 [...] Reji Tyler MDReport Verified Date/Time: 05/30/2019 22:00:23 [facility] [id number] 21:22:00 Test Item Value Reference Range Interpretation [...] S NOT APPLICABLE FOR DIALYSIS PATIEN TS. Computer Installer ID - CDPPROTHROMBIN TIME/[id number] 21:14:00 Test Item Value Reference Range Interpretation [...] mechanical heart valves.CBC W/PLT COUNT & AUTO [id number] 21:08:00 Test Item Value Reference Range Interpretation [...] (test code = No acid fast bacilli 79124-2) seen [facility] HospitalAFB [facility]ULT[facility] + SMEAR (NON-SPUTUM)2019-05-26 15:52:00 Test [...] code = 994) seen FUNGUS CULTURE + [id number] 16:19:00 Test Item Value Reference Range Interpretation Comments CULTURE (BEAKER) (test No fungus isolated in code = 1095) 28 days FUNGUS SMEAR (BEAKER) No fungi seen (test code = 1406) FUNGUS CULTURE + [id number] 16:19:00 Test Item Value Reference Range Interpretation Comments CULTURE (BEAKER) (test No fungus isolated in code = 1095) 28 days FUNGUS SMEAR (BEAKER) <1+ yeast (test code = 1406) FUNGUS CULTURE + [id number] 16:19:00 Test Item Value Reference Range Interpretation Comments CULTURE (BEAKER) (test No fungus isolated in code = 1095) 28 days FUNGUS SMEAR (BEAKER) <1+ yeast (test code = 1406) FUNGUS CULTURE + [id number] 16:19:00 Test Item Value Reference Range Interpretation Comments CULTURE (BEAKER) (test No fungus isolated in code = 1095) 28 days FUNGUS SMEAR (BEAKER) No fungi seen (test code = 1406) FUNGUS CULTURE + [id number] 16:19:00 Test Item Value Reference Range Interpretation Comments CULTURE (BEAKER) (test No fungus isolated in code = 1095) 28 days FUNGUS SMEAR (BEAKER) <1+ yeast (test code = 1406) RAD, CHEST, 2 [id number] 08:51:00Reason for Exam:->PLEURAL EFFUSIONFINAL REPORT EXAMINATION: PA [...] Hua Verified Date/Time: 05/09/2019 08:51:36 Reading Location: [facility] [employer] Reading Room [address] [place] [address] XR chest 2 [id number] 08:51:00Interface, External Ris In - 05/09/2019 8:53 [...] Verified Date/Time: 05/09/2019 08:51:36 Reading Location: [facility] [employer] Reading Room [address] [place] [address] [facility] (NON-SPUTUM)2019-05-06 22:55:00 Test [...] code = 994) seen Fungus culture + [id number] 17:35:00 Test Item Value Reference Range Interpretation Comments Result (test code = <1+ Ana A 6463-4) albicans Fungus Smear (test code = No fungi seen 1406) Lab Interpretation (test Abnormal code = 65849-8) [facility] HospitalFUN[facility] + [id number] 17:35:00 Test Item Value Reference Range Interpretation Comments CULTURE (BEAKER) A <1+ Ana albicans (test code = 1095) FUNGUS SMEAR No fungi seen (BEAKER) (test code = 1406) RAD, CHEST, 1 VIEW, NON [id number] 08:25:00Reason for exam:->s/p R VATSShould this be [...] MDReport Verified Date/Time: 04/25/2019 08:25:05 Reading Location: [facility] Radiology Reading Room CBC W/PLT COUNT & AUTO [id number] 07:17:00 Test Item Value Reference Range Interpretation [...] 0-1 PERCENT (BEAKER) (test code = 2801) [id number] 06:30:00 Test Item Value Reference Range Interpretation Comments PHOSPHORUS (BEAKER) (test code = 2.6 mg/dL 2.3-4.7 604) Computer Installer ID Sultana PHAN [id number] 06:30:00 Test Item Value Reference Range Interpretation Comments MAGNESIUM (BEAKER) (test code = 1.7 mg/dL 1.6-2.6 627) Computer Installer ID Sultana PHAN LBASIC METABOLIC [id number] 06:30:00 Test Item Value Reference Range Interpretation [...] S NOT APPLICABLE FOR DIALYSIS PATIEN TS. Computer Installer ID Sultana PHAN LRAD, CHEST, 1 VIEW, NON [id number] 09:38:00Reason for exam:->s/p R VATSShould this be [...] MDReport Verified Date/Time: 04/24/2019 09:38:07 Reading Location: [facility] Radiology Reading Room BASIC METABOLIC [id number] 06:26:00 Test Item Value Reference Range Interpretation [...] S NOT APPLICABLE FOR DIALYSIS PATIEN TS. Computer Installer ID - EMILIE LSpecimen slightly [id number] 06:19:00 Test Item Value Reference Range Interpretation Comments PHOSPHORUS (BEAKER) (test code = 3.3 mg/dL 2.3-4.7 604) Computer Installer ID - EMILIE [id number] 06:19:00 Test Item Value Reference Range Interpretation Comments MAGNESIUM (BEAKER) (test code = 1.8 mg/dL 1.6-2.6 627) Computer Installer ID - EMILIE LCBC W/PLT COUNT & AUTO [id number] 04:39:00 Test Item Value Reference Range Interpretation [...] FL, ESOPH, SWALLOW FUNCTION, WITH CINE OR [id number] 14:55:00Reason for exam:->dysphagiaFINAL REPORT Modified barium swallow [...] [place] Verified Date/Time: 04/23/2019 14:55:57 Reading Location: [address] , CHEST, 1 VIEW, NON [id number] 14:41:00Reason for exam:->s/p ct removalShould this be [...] MDReport Verified Date/Time: 04/23/2019 14:41:23 Reading Location: [facility] Radiology Reading Room RAD, CHEST, 1 VIEW, NON [id number] 09:12:00Reason for exam:->s/p R VATSShould this be [...] Signed: JR Marek, Christie HEARNeport Verified Date/Time: 04/23/2019 09:12:53 Reading Location: [facility] Radiology Reading Room BASIC METABOLIC [id number] 05:25:00 Test Item Value Reference Range Interpretation [...] S NOT APPLICABLE FOR DIALYSIS PATIEN TS. Computer Installer ID - ELISSA [id number] 05:24:00 Test Item Value Reference Range Interpretation Comments Prealbumin (test code = 7 mg/dL 14-45 L 42787-1) DORI (test code = DORI) Computer Installer ID - ELISSA M Lab Interpretation (test Abnormal code = 91766-7) [facility] HospitalPREALBUMIN2020-02-26 05:24:00 Test Item Value Reference Range Interpretation Comments PREALBUMIN (BEAKER) (test code = 586) 7 mg/dL 14-45 L Computer Installer ID - ELISSA [id number] 05:23:00 Test Item Value Reference Range Interpretation Comments PHOSPHORUS (BEAKER) (test code = 2.8 mg/dL 2.3-4.7 604) Computer Installer ID - ELISSA [id number] 05:23:00 Test Item Value Reference Range Interpretation Comments MAGNESIUM (BEAKER) (test code = 1.9 mg/dL 1.6-2.6 627) Computer Installer ID - ELISSA MCBC W/PLT COUNT & AUTO [id number] 04:58:00 Test Item Value Reference Range Interpretation [...] = 2801) RAD, CHEST, 1 VIEW, NON [id number] 10:13:00Reason for exam:->s/p R VATSShould this be [...] MDReport Verified Date/Time: 04/22/2019 10:13:43 Reading Location: [facility] Radiology Reading Room 10:13 AMBASIC METABOLIC [id number] 04:59:00 Test Item Value Reference Range Interpretation [...] S NOT APPLICABLE FOR DIALYSIS PATIEN TS. Computer Installer ID - ELISSA [id number] 04:57:00 Test Item Value Reference Range Interpretation Comments PHOSPHORUS (BEAKER) (test code = 2.7 mg/dL 2.3-4.7 604) Computer Installer ID - ELISSA [id number] 04:57:00 Test Item Value Reference Range Interpretation Comments MAGNESIUM (BEAKER) (test code = 1.9 mg/dL 1.6-2.6 627) Computer Installer ID - ELISSA MCBC W/PLT COUNT & AUTO [id number] 03:33:00 Test Item Value Reference Range Interpretation [...] PERCENT (BEAKER) (test code = 2801) Anaerobic [id number] 17:25:00 Test Item Value Reference Range Interpretation Comments Result (test code = No anaerobes isolated 6463-4) [facility] [id number] 17:25:00 Test Item Value Reference Range Interpretation Comments CULTURE (BEAKER) (test No anaerobes isolated code = 1095) ANAEROBIC [id number] 17:24:00 Test Item Value Reference Range Interpretation Comments CULTURE (BEAKER) (test No anaerobes isolated code = 1095) ANAEROBIC [id number] 17:24:00 Test Item Value Reference Range Interpretation Comments CULTURE (BEAKER) (test No anaerobes isolated code = 1095) ANAEROBIC [id number] 17:23:00 Test Item Value Reference Range Interpretation Comments CULTURE (BEAKER) (test No anaerobes isolated code = 1095) ANAEROBIC [id number] 17:23:00 Test Item Value Reference Range Interpretation Comments CULTURE (BEAKER) (test No anaerobes isolated code = 1095) BASIC METABOLIC [id number] 12:47:00 Test Item Value Reference Range Interpretation [...] S NOT APPLICABLE FOR DIALYSIS PATIEN TS. Computer Installer ID Sultana SCOTT [id number] 12:46:00 Test Item Value Reference Range Interpretation Comments MAGNESIUM (BEAKER) 2.2 mg/dL 1.6-2.6 Specimen slightly (test code = 627) hemolyzed Computer Installer ID Sultana SCOTT FBASIC METABOLIC [id number] 05:36:00 Test Item Value Reference Range Interpretation [...] S NOT APPLICABLE FOR DIALYSIS PATIEN TS. Computer Installer ID Sultana FLORES [id number] 05:32:00 Test Item Value Reference Range Interpretation Comments PHOSPHORUS (BEAKER) (test code = 3.4 mg/dL 2.3-4.7 604) Computer Installer ID - SANDRA [id number] 05:32:00 Test Item Value Reference Range Interpretation Comments MAGNESIUM (BEAKER) (test code = 2.0 mg/dL 1.6-2.6 627) Computer Installer ID - SANDRA WCBC W/PLT COUNT & AUTO [id number] 05:07:00 Test Item Value Reference Range Interpretation [...] = 2801) RAD, CHEST, 1 VIEW, NON [id number] 04:30:00Reason for exam:->s/p R VATSShould this be [...] MDReport Verified Date/Time: 04/21/2019 04:30:21 BASIC METABOLIC [id number] 16:21:00 Test Item Value Reference Range Interpretation [...] S NOT APPLICABLE FOR DIALYSIS PATIEN TS. Computer Installer ID - SONIA [id number] 15:52:00 Test Item Value Reference Range Interpretation Comments PHOSPHORUS (BEAKER) (test code = 2.7 mg/dL 2.3-4.7 604) Computer Installer ID - SONIA [id number] 15:52:00 Test Item Value Reference Range Interpretation Comments MAGNESIUM (BEAKER) (test code = 2.0 mg/dL 1.6-2.6 627) Computer Installer ID - SONIA FCBC W/PLT COUNT & AUTO [id number] 15:27:00 Test Item Value Reference Range Interpretation [...] PERCENT (BEAKER) (test code = 2801) POCT-GLUCOSE [id number] 12:28:00 Test Item Value Reference Range Interpretation Comments POC-GLUCOSE METER 104 mg/dL 70-110 : TESTED A T [facility] 6720 (BEAKER) (test code = ILDA Calvert [facility], 1538) [address]: 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 ID = [id number] for JON ARCEO RAD, CHEST, 1 VIEW, NON [id number] 08:05:00Reason for exam:->s/p R VATSShould this be [...] MDReport Verified Date/Time: 04/20/2019 08:05:30 Reading Location: [address] Neuro Reading Room BASIC METABOLIC PANEL [...] S NOT APPLICABLE FOR DIALYSIS PATIEN TS. Computer Installer ID - [id number] 04:57:00 Test Item Value Reference Range Interpretation Comments PHOSPHORUS (BEAKER) (test code = 3.9 mg/dL 2.3-4.7 604) Computer Installer ID - [id number] 04:57:00 Test Item Value Reference Range Interpretation Comments MAGNESIUM (BEAKER) (test code = 2.2 mg/dL 1.6-2.6 627) Computer Installer ID - DBCBC W/PLT COUNT & AUTO [id number] 03:45:00 Test Item Value Reference Range Interpretation [...] PERCENT (BEAKER) (test code = 2801) POCT-GLUCOSE [id number] 00:19:00 Test Item Value Reference Range Interpretation Comments POC-GLUCOSE METER 115 mg/dL 70-110 H : TESTED A T [facility] 6720 (BEAKER) (test code = ILDA [address], 1538) [address]: 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 ID = [id number] for NE MS, SENORA FUNGUS CULTURE + [id number] 18:47:00 Test Item Value Reference Range Interpretation Comments CULTURE (BEAKER) (test No fungus isolated in code = 1095) 28 days FUNGUS SMEAR (BEAKER) No fungi seen (test code = 1406) FUNGUS CULTURE + [id number] 18:47:00 Test Item Value Reference Range Interpretation Comments CULTURE (BEAKER) (test No fungus isolated in code = 1095) 28 days FUNGUS SMEAR (BEAKER) No fungi seen (test code = 1406) FUNGUS CULTURE + [id number] 18:35:00 Test Item Value Reference Range Interpretation Comments CULTURE (BEAKER) (test No fungus isolated in code = 1095) 28 days FUNGUS SMEAR (BEAKER) No fungi seen (test code = 1406) [id number] 18:02:00 Test Item Value Reference Range Interpretation Comments PHOSPHORUS (BEAKER) (test code = 1.3 mg/dL 2.3-4.7 LL 604) Computer Installer ID Sultana SONIA FBASIC METABOLIC [id number] 17:59:00 Test Item Value Reference Range Interpretation [...] S NOT APPLICABLE FOR DIALYSIS PATIEN TS. Computer Installer ID Sultana SONIA [id number] 17:58:00 Test Item Value Reference Range Interpretation Comments MAGNESIUM (BEAKER) (test code = 2.1 mg/dL 1.6-2.6 627) Computer Installer ID - SONIA FCBC W/PLT COUNT & AUTO [id number] 17:41:00 Test Item Value Reference Range Interpretation [...] = 2801) RAD, CHEST, 1 VIEW, NON [id number] 09:28:00Reason for exam:->s/p R VATSShould this be [...] GarciaMDReport Verified Date/Time: 04/19/2019 09:28:51 Reading Location: [address] Neuro Reading Room BASIC METABOLIC [id number] 04:18:00 Test Item Value Reference Range Interpretation [...] S NOT APPLICABLE FOR DIALYSIS PATIEN TS. Computer Installer ID - ELISSA [id number] 04:16:00 Test Item Value Reference Range Interpretation Comments MAGNESIUM (BEAKER) 1.8 mg/dL 1.6-2.6 Specimen slightly (test code = 627) hemolyzed Computer Installer ID - ELISSA [id number] 04:16:00 Test Item Value Reference Range Interpretation Comments PHOSPHORUS (BEAKER) 1.9 mg/dL 2.3-4.7 L Specimen slightly (test code = 604) hemolyzed Computer Installer ID - ELISSA MCBC W/PLT COUNT & AUTO [id number] 03:48:00 Test Item Value Reference Range Interpretation [...] PERCENT (BEAKER) (test code = 2801) POCT-GLUCOSE [id number] 00:35:00 Test Item Value Reference Range Interpretation Comments POC-GLUCOSE METER 104 mg/dL 70-110 : TESTED A T [facility] 6720 (BEAKER) (test code = ILDA [place], 1538) [address]: 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 ID = [id number] for NE MS, NEEL Prepare Leuko-Red [id number] 23:54:00 Test Item Value Reference Range Interpretation Comments CROSSMATCH (test code = 2264) COMPATIBLE Unit ABO (test code = A Neg 7777291) UNIT NUMBER (test code = [id number] 934-0) Status (test code = 1203317) TX_TIMEINCHART Blood Bank Product (test code RED BLOOD CELLS = 2263) PRODUCT CODE (test code = J8819G29 933-2) [facility] [id number] 19:39:00 Test Item Value Reference Range Interpretation [...] S NOT APPLICABLE FOR DIALYSIS PATIEN TS. Computer Installer ID - [id number] 19:37:00 Test Item Value Reference Range Interpretation Comments PHOSPHORUS (BEAKER) (test code = 1.8 mg/dL 2.3-4.7 L 604) Computer Installer ID - [id number] 19:37:00 Test Item Value Reference Range Interpretation Comments MAGNESIUM (BEAKER) (test code = 1.8 mg/dL 1.6-2.6 627) Computer Installer ID - DBPOCT-GLUCOSE [id number] 18:39:00 Test Item Value Reference Range Interpretation Comments POC-GLUCOSE METER 115 mg/dL 70-110 H : Notified RN/MD: (BEAKER) (test code = TESTED AT [facility] 7511 3451) [facility], [address]: 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 ID = [id number] for Renetta Guerrier CBC W/PLT COUNT & AUTO [id number] 18:15:00 Test Item Value Reference Range Interpretation [...] = 2801) Surgically obtained culture + gram [id number] 16:40:00 Test Item Value Reference Range Interpretation Comments Result (test code = 6463-4) No growth Gram Stain Result (test No organisms seen code = 1123) [facility] GRAM [id number] 16:40:00 Test Item Value Reference Range Interpretation Comments CULTURE (BEAKER) (test code No growth = 1095) GRAM STAIN RESULT (BEAKER) 1+ WBCs (test code = 1123) GRAM STAIN RESULT (BEAKER) No organisms seen (test code = 29768) SURGICALLY OBTAINED CULTURE + GRAM [id number] 16:40:00 Test Item Value Reference Range Interpretation Comments CULTURE (BEAKER) (test code No growth = 1095) GRAM STAIN RESULT (BEAKER) 1+ WBCs (test code = 1123) GRAM STAIN RESULT (BEAKER) No organisms seen (test code = 23991) SURGICALLY OBTAINED CULTURE + GRAM [id number] 16:40:00 Test Item Value Reference Range Interpretation Comments CULTURE (BEAKER) (test code No growth = 1095) GRAM STAIN RESULT (BEAKER) 1+ WBCs (test code = 1123) GRAM STAIN RESULT (BEAKER) No organisms seen (test code = 44654) SURGICALLY OBTAINED CULTURE + GRAM [id number] 16:40:00 Test Item Value Reference Range Interpretation Comments CULTURE (BEAKER) (test code No growth = 1095) GRAM STAIN RESULT (BEAKER) 1+ WBCs (test code = 1123) GRAM STAIN RESULT (BEAKER) No organisms seen (test code = 61162) SURGICALLY OBTAINED CULTURE + GRAM [id number] 16:40:00 Test Item Value Reference Range Interpretation Comments CULTURE (BEAKER) (test code No growth = 1095) GRAM STAIN RESULT (BEAKER) 1+ WBCs (test code = 1123) GRAM STAIN RESULT (BEAKER) No organisms seen (test code = 02322) POCT-GLUCOSE [id number] 11:57:00 Test Item Value Reference Range Interpretation Comments POC-GLUCOSE METER 126 mg/dL 70-110 H : Notified RN/MD: (YELITZA) (test code = TESTED AT [facility] 6720 1538) [facility], [address]: 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 ID = [id number] for Si mmons, Renetta RAD, CHEST, 1 VIEW, NON [id number] 10:13:00Reason for exam:->s/p R VATSShould this be performed at the bedside?->YesFINAL REPORT CLINICAL HISTORY: s/p R VATS TECHNIQUE: 1 view of the chest. [facility]: 04/17/2019 IMPRESSION: The ETT and three right-sided chest tubes appear unchanged position. There is no pneumothorax. Right hemithorax pleural- parenchymal opacity is unchanged. Left lung base opacity and a small left pleural effusion are also unchanged. The cardiomediastinal silhouette is magnif ied by technique with sternotomy wires. Signed: Jenny Rosado MDReport Verified Date/Time: 04/18/2019 10:13:43 Reading Location: [facility] Radiology Reading Room POCT-GLUCOSE [id number] 06:07:00 Test Item Value Reference Range Interpretation Comments POC-GLUCOSE METER 136 mg/dL 70-110 H : TESTED A T [facility] 6720 (BEAKER) (test code = ILDA Calvert [facility], 1538) [address]: 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 ID = [id number] for Ed wards, [place] BASIC METABOLIC [id number] 03:23:00 Test Item Value Reference Range Interpretation [...] S NOT APPLICABLE FOR DIALYSIS PATIEN TS. Computer Installer ID - ELISSA [id number] 03:09:00 Test Item Value Reference Range Interpretation Comments PHOSPHORUS (BEAKER) (test code = 2.9 mg/dL 2.3-4.7 604) Computer Installer ID - ELISSA [id number] 03:09:00 Test Item Value Reference Range Interpretation Comments MAGNESIUM (BEAKER) (test code = 2.0 mg/dL 1.6-2.6 627) Computer Installer ID - ELISSA MBLOOD GAS, [id number] 02:53:00 Test Item Value Reference Range Interpretation [...] 40.0 % CBC W/PLT COUNT & AUTO [id number] 02:51:00 Test Item Value Reference Range Interpretation [...] PERCENT (BEAKER) (test code = 2801) POCT-GLUCOSE [id number] 00:31:00 Test Item Value Reference Range Interpretation Comments POC-GLUCOSE METER 121 mg/dL 70-110 H : TESTED A T [facility] 6720 (BEAKER) (test code = [facility], 153) [address]: 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 ID = [id number] for NAYELY FRAIRE POCT-GLUCOSE [id number] 18:46:00 Test Item Value Reference Range Interpretation Comments POC-GLUCOSE METER 114 mg/dL 70-110 H : TESTED A T [facility] 6720 (BEAKER) (test code = [facility], 153) [address]: 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 ID = [id number] for ALAN BONILLA BASIC METABOLIC [id number] 17:17:00 Test Item Value Reference Range Interpretation [...] S NOT APPLICABLE FOR DIALYSIS PATIEN TS. Computer Installer ID - BSSpecimen slightly [id number] 17:14:00 Test Item Value Reference Range Interpretation Comments PHOSPHORUS (BEAKER) (test code = 4.2 mg/dL 2.3-4.7 604) Computer Installer ID - [id number] 17:14:00 Test Item Value Reference Range Interpretation Comments MAGNESIUM (BEAKER) (test code = 2.1 mg/dL 1.6-2.6 627) Computer Installer ID - BSCBC W/PLT COUNT & AUTO [id number] 16:29:00 Test Item Value Reference Range Interpretation [...] (BEAKER) (test code = 2801) BLOOD GAS, [id number] 16:23:00 Test Item Value Reference Range Interpretation [...] (test code = 1819) 40.0 % POCT-GLUCOSE [id number] 13:26:00 Test Item Value Reference Range Interpretation Comments POC-GLUCOSE METER 94 mg/dL 70-110 : TESTED A T [facility] 6720 (BEAKER) (test code = ILDA [address], 1538) [address]: 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 ID = [id number] for [employer] FINCH Bronchial culture + gram [id number] 11:54:00 Test Item Value Reference Range Interpretation Comments Result (test code = 6463-4) No growth Gram Stain Result (test No organisms seen code = 1123) [facility] [id number] 11:54:00 Test Item Value Reference Range Interpretation Comments CULTURE (BEAKER) (test code No growth = 1095) GRAM STAIN RESULT (BEAKER) 1+ WBCs (test code = 1123) GRAM STAIN RESULT (BEAKER) No organisms seen (test code = 25804) Tissue [id number] 11:43:00 Test Item Value Reference Range Interpretation Comments Case Report (test code Surgical Pathology = 104) Report Case: [id number] Authorizing Provider: Fernando Andrews MD Collected: 04/14/2019 1654 Ordering Location: [facility] Received: 04/15/2019 0933 PERIOPERATIVE SERVICES Pathologist: Gay Puentes MD Specimens: A) - Pleura, PARIETAL PLEURA B) - Lung, Right Lower Lobe, Right lower lobe C) - Lung, Right Middle Lobe, Right middle lobe D) - Lung, Right Upper Lobe, Right upper lobe DIAGNOSIS (test code = b2brqABfIXOqi1qrGHZkkGF 3220) uZzEwMzNcZnRuYmpcdWMxIH iyktErNZwan7OfO7OoMgYcP FxhbnNpXGRlZmxhbmcxMDMz PRD1yeSlNKVkWZhhESHhRBs bZf6sfFGibUhoCgSfSBSpc5 nqgdKFdajjaIs8z4pjEQHbN bQ9gTWtDIenU7ehnbEivKLb MNHeZUc4zBybEbYhXKAcq88 hbiBcZmNoYXJzZXQwIEFyaW FjL867s0smi3vruqWwrOJ5D KDcVWX0PHrdvhMyusS0KNhr tGNqXcJ4ZVsfrhMnWFOxF1Z sAX5uGMteqWKnYNNdO6odKP DhVVniPHMdZOpmeUCaZUB7h Ywat3I0sOKxaPVndVafAqFl DwGwVHCYb0InQUw5kWrkG6F dLSDdWfE7fPJpIHQqWMpxBH KhTBIffxM0xG60DGzblrJ0z PSoe4Iir36rm812rA7xyIJf KXF5BNCvMNGtaGSpKBAzLVF 0CWKvxFEgW4b1XcKnfQLhQ4 Z6EdVmfJYxQ3S1IbOphHUsR 9Y5UgTixIEgZXItaDUpJh2c oCWfxBWyxp4zsl56NYW2e9X xuUdoZNB9NNW7QfHwJe2jcB WrYKLuWU1bTzTmzNAuBJYip m42lJflRMthxcQkmK2tWtSc UJ6mpOjlb89vZOYaRK5gaY4 mwa9qugThBJuzlJEnwKS7nr tnOJL6YGZvpyYoy0Req9umW fOzhfErA5ynH6GnIMSvAAQj IYRnGdOnqpXvl3Jdv8CqvVS tdHa7j9qdXIKyMZZxySchu6 gaZVD9UZZtI6F9mLKta8hzI YpbHLUndEP7tncyYSgoIEVb mnQ2ozxkCLbqHFSouDN0kjl hWSofTWUkEtY5kkaqMRqzZI PhDRB3FLzfi104UHE1FEyhE mtwYWdlXHBnbmNvbnRccGdu ZGVjXHBsYWluXHBsYWluXGY yANDpJbNobAxhxUgcdV6nJz BnQbEiZJqzJP5wQIKwB4mqn MLlNQKqWVBhM7qfZdJyvN8o aFxmMVxmczIwXHBhciBBLiB WWHJYQqQzTHAQT4fWHBMVYV JJRVRBTCBQTEVVUkEsIERFQ 50DARsFGANQG919AVPcmuBl ICAgLSBDSFJPTklDIEZJQlJ WY0cJSvPKHHRDXtuTRVExPE BhciAgICAgLSBORUdBVElWR QLJA2TyGYCCERePJT3ODYwh YXJccGFyIEIuIExVTkcsIFJ NU4hHZOfMY1OPWBdGKpDpWU KLZ40ETXbDONUJZ486HFRdg iAgICAgLSBDSFJPTklDIEZJ SqJVS2eJVoVOKLCBSxvGLQC lW0sTGVMXU2IXLOLUH1MEWO EXRdSHDP5UUIYUF46iXQDfa oXyOKBgPUUYRV7BXKJLXmAL E9nNZDVaQ0eBDJQEBSUAECW ENiARRvPOKhrMAtetIG7MJE KOIGPZL78MFK6ilXPpPPMlM ZQgQL5RB1DNZENWFLZMBxCX XHxVI19ZJkKOQUYjoqenWVX pKw4aHLRETioaCprFNNJcOJ sASAoARDmRByMjWLPYF04JR RjFBWMCK820QYTqawJnHHIu XLPDOTARBiwJKBZZKfKVJ9w ORyBQTEVVUklUSVMuXHBhci AgICAgLSBORUdBVElWRSBGT 8OzSYHYBKsOGG6GLM2tzMQs XHBhclxwYXJkXHBsYWluXGY lMYIqMbDkqSzjkB7mMpMvJd XlGJgeBE3zQMStC6rteWIxE XQrQSHeM4klBfXudQ8mrRdu MVxmczIwIEQuIExVTkcsIFJ YA1vUTBMKHGNQUWvVXuBvUA XKS25NYJePAOGLL910XXXlx lxxbFxwbGFpblxmMFxmczI0 XHBsYWluXGYxXGZzMjBcbGF uZzEwMzNcaGljaFxmMVxkYm MtVGMaFWxaA0vsTjRzApXpS CAgICAgLSBDSFJPTklDIEZJ SpLXU7bXXiQVEKDMDlqCVEC uXHBhciAgICAgLSBORUdBVE cJRIZJC2KiOKYAOUuENR1JY W8blJOnVFCjEREkWZcLNvqb DZIOQD9BBQhNYJJDNTGIMRw wbGFpblxmMlxmczIwXGxhbm wtWHUlPHonU1gxHsPvPJDoo SfiTlosl4CnVEQyZBGzEuaa jvDhNYx5umRgTT9DTDQWN60 UNocOGX0NCWFFRAaBC0AYPA MgQUxURVJBVElPTlxwbGFpb lxmMVxmczIwXGxhbmcxMDMz OOeaL1igUhNxLJBouNzrPBb zj9NfISIwXINxOhsomcVhKP 3rsBkirH7cOsKnJaPvYZzbA E7lVMOzG3fptSUpCYJyLDPi A2jbGqEqgR5ujRjeQIqqqnK tJMAqcipdUOW1t9iyfDIxLH NzdGUxODAwMFxhbnNpXGRlZ pumnqvoDJUsRFT5dkNdJVJl MZugTQZoJHoiOi6fqAJspCo mMbFdRNEzi7hkmzCCldcslP w7x1jbBEApXmZ9fCScJGiwE 4jpvfUoyMPoVTEhFIl8gD14 YBXzuV8ucIIaWFhsqhQwBdO 9DRidOHUzBtK1YWTnzBTvLU WgJ0neGCYuQHmoJVZhIZstb RIkSXD1wNgli3C6fNVesRSm pDpaUuFwQzFkTtRHj9ExGPg 9pIkwT7WmSGJlLnL4cTEdTJ OcOOdaNBHeHGZuqtI3hI70A WzihvD2sSSlw8Wjr70jz054 eW7cnBCsYNY2OLDdVXZsqDA hNEPrRHG3YUOkpXIsH6srLN RuIE8fpgeeCWlrLOtgAYMiw ZT0TWIsqEQsZ3DbQYJiHEbs HKXuiqy3JsBfSe1ucFOutHm vDJdkw8fex0oqsMTvZcm6NX FwYxMbJczrEGtyp8Kkq9cdD RQunr2uWYE7tJArtEyfr4T2 lWYeFWTpvGQzLUQlPA5exEQ iCKSopA0yxgmbTKSdKzDfyo oyOKMvqGidnvVpBe5xtXhnO YX5DIwdW3bobF0dRfE3BLrx T9mscK8hJVr6CMcmMIWbdGD 3qsU6FCAjqZRtE2VcsB8dUH RcJP6xfxg5w7eaEUC4LPiiV GJpUzG6mzK5EUEytKAnXKKg gYppCQjkm294LPO7HvUhZUD ar1CiH4FmrAheX96cxQbsE2 4sIXWloCgskI3fhVpxhW4bR fQqFqNfXNcdhTerYA2qUPJn R0wzxPNiMAMuBJVfU1brQvF pyV0ilFfwGBbxmxXoPMDgNf o5EYJzsNWpWVBnXzi0KTLtH PVfV12rzxchTHX7eT4zj9ag w7BeMMzrXQK1LAAxf80cLTl zdaH5YGmtFo20QReeZTI6CX dsNGE8yE== CPT Code(s) (test code q6lelKIuIPCioHYlRdZaWVD = 3357) vCCGie2fmPMUauDStZfTqXs NcZnRuYmpcdWMxXGRlZmYwe 5csy750dEOik5imNCVfMjP0 mDNzMJLyrGRmP314o4ffw8v ycfCvdHI5DPPmTPF0HMqypi YriaI3NThdxMOcMjG2EMxyu lVrWDpalzTokgXmUzz1LIAz X807QLO7xUuyp9saBMY5PUB xRXWtBvOpFt3fwRMoR908AK XlOQNJSBNiuKy9HGNjgkKrm zHqbMYAf654U349q7rcZAZy ayNfbDfClnumb5xjY862BFO hcGVydzEyMjQwXHBhcGVyaD J1UMWeBJ2yzllpDcHrSY6xy bsvLvHmMF6qtsr4JzWlBL0y cmdiNzIwXGhlYWRlcnkwXGZ or9YxucvuJH9wC0Mrz6P9lJ 9maXRcZGVmdGFiNzIwXGZvc h0sbVXsRRvmy5TbLNR8ofM9 nGIpoKQqXSYpPO86Vxewu4Q rNtbeGVV2OCMhupIhk2Mtw4 pqRdUezyJtX5xoO3JgAQEhC ZGqQIUfGrOlgmHjf4Raw2Ue rXIcdQc6y0xdWNTaDBCvzRc nd4ktKFB8QNVyW5F3sJPij7 frJSioOHQtcQU8empzNJqbI EOepfG1dcdrQKasZCScxBJ1 vnieVSpxUZLkRgD1rinuIMf sJXAjDMR9CQfte664XHS9XI xzYmtwYWdlXHBnbmNvbnRcc GduZGVjXHBsYWluXHBsYWlu XGYwXGZzMjRccWxccGxhaW5 sLbAhDrSwHMrdZR6iZBDiM7 qgeZGpTJCiVLJaD7axOtGnt A3byIvhRXdkqbHbIBp3PlI9 IFggNFxwYXJ9 CLINICAL HISTORY (test p5xnkVXmRSHopKZgAmFaEFX code = 3356) qVFUwx9rmXJCiwBSnNeFhTr NcZnRuYmpcdWMxXGRlZmYwe 5tac045aLPzo2rlLJSgPrD0 mEKqNPStyLQgC810n8uuq8o kceDbzKK9JBQkROQ3VYqenu FjpcH8QZmxxNYfWoT9ZBnpg hRlGGedbhDfvmEmEfm2DRQi Q586EEK7cLfya3hsPCN4RXQ nBUJnJfPqOh3gyALtN117TK UrLPHMWSUloZt9QKYqxfSyn uInkPMCo476E322e7xxPLUn gzSxzWpMyqmvj5bkW235RJK hcGVydzEyMjQwXHBhcGVyaD M5KXHdKI0zcxhtWdRuTO2hy hkjTvHkUJ6allf8LyEzVT5n cmdiNzIwXGhlYWRlcnkwXGZ vh5HelgmtBL6sL4Bxo7L1xH 9maXRcZGVmdGFiNzIwXGZvc b1umNYgEFcmz4HlQAD9nhR2 dETblNUiHTQrHK87Lphqd3U mQojuNWH8DWIxicWsa0Jdr7 xmRxBqpyNuB9ppQ5QiBPAeO JKxSGKrQqAlucSjm1Fbp9Pa kPJaqFu3w3sqZNTfGUWfjOq kk2tbGTL7VSZyI0Q6aSFca8 ftUUevTQEvtSD6lfdfEYlsA CGuoaD7potjJBipUNLvmWA4 ebdzVSjfSCOeEfW2xgtuRFn wXYChRTI2SNkxe682IKM5FP xzYmtwYWdlXHBnbmNvbnRcc GduZGVjXHBsYWluXHBsYWlu XGYwXGZzMjRccWxccGxhaW5 yTpFwEeVjDYkgVM7qLFKhY1 qqvCDkHRLlTDGyE8eeSyMpe E2roMijZCqcnwPlFKPooYle aAZeZBZyJ1o8NkisFTD1 SPECIMEN SOURCE (test n2evuOSvECQzxZQrAwJfFWW code = 3377) mHPDms0jnMUNbtSJbBiBwRy NcZnRuYmpcdWMxXGRlZmYwe 6fwk340uUJqq7yeLCKlBzU4 gRIdVFHzxFHbK110t3ltn1t hwsMntUD7DFIhHPL5GDwxgh QsxyI4PDidgTOyHmN5GEwgw bLbCSaqgbEkczPeLfr4JRYk P932MLV9aQdwr9ncYSJ0EKO mCRGnLzImAr3vkHXsM629OC BaZVFDLNFzeEu8KIVyvwCro zXbaTADo661Q473w4oeSOXu qdJpeVsKbanze2oqK028GIF hcGVydzEyMjQwXHBhcGVyaD F8ORUsRD5icotqViSkKA3tr lbzOaPpWK7xoad2GdCbHX1b cmdiNzIwXGhlYWRlcnkwXGZ mh1AeuthbDN7cG8Pgh2W4eZ 9maXRcZGVmdGFiNzIwXGZvc j8muDCtDBmjf9AvPMU0lvE2 yBSksYGwRQUtLC66Qaunw8O qSxwvGGD2IHKivdFuh5Nnd9 igAlBzmfPjA6ciN6JwRHDmX CBvZJGeKqTimrWnf1Hjh1St gFWsrWp5t3yqTJMrLHXhlAt rq6jdWPV1SWPlY2B8tGRaz3 rsWHjqZVRpqVK3mmtjANvpI PZbuxG3gejdPPyjYXYdiSA0 gjpvCEwoAUBoIkZ0xhjoDCl fQUEaIGJ4JOwjl978OQB2PM xzYmtwYWdlXHBnbmNvbnRcc GduZGVjXHBsYWluXHBsYWlu XGYwXGZzMjRccWxccGxhaW5 mXwLnUiWrVWdnZZ2vREWpL1 lyuQVtPCTwWYGuJ5ccNnLrp O0jdHmhHSicktRoRXOuVSJh OLJiQC3sOj1vNJWfRysuzpk nyTGsuS19TVCieT5oHI2tWo 4gTHVuZywgcmlnaHQgbWlkZ QjgMVreJvQcGGTdXRr3ndma TXRzW9r3GJXehAEqAUthBlP gXHBhcn0= GROSS DESCRIPTION r2hprLZjZSTreDZvBrGeEOC (test code = 3366) dMJPmr9vyUNEhmTKyFqWgBg NcZnRuYmpcdWMxXGRlZmYwe 9wtd082wYPkk3uhAWUhGuW5 wTUuLFKznBUmZ476GXMhXOq vn9uuc9FqVESkzKVgr1V2DL GRpnmiuLb9bXgxG67gf4D1Y wnoG5wiNNKpXJObL6KhCM0m YICmGew5ABF1TJZ5FNPcYYG rS3KqVV3vJDZimWFyXJr4z2 icxFteLYUnMLY7f6arQJyqj aTkZY7xlf1vyNe2n6slzcNn WRYpVKOeeRJTRLKlI6MmfZy xPt4bvPt7dNqmMzjwTCT7Py q4TQ8kuo42bvr2yFgzFFZgc lvvHnP1WLmpWQSvvrhkIFi6 MFxtYXJnbDcyMFxtYXJncjc yMFxtYXJndDcyMFxtYXJnYj fuOTtkHMUeCKE9USbwn548W PM5YDrnq6lei2ecuXIcLxo4 BYRqCdZvCiyuKQrjs3Okc6q pQEMyrx4gBJS1kMVerIpwb3 N5xDYaPMPlgKNsbdVoDPUkI zZ3AFzxGG3dbf83NLLsTTW9 yf0wiTZgjAwzopWbwRPoHKl qK8SuJRPgn691QNFtG8SbFF Iev1C1bfYgVqHxONQsxPM9p oL6VJJmDAk9fNVwwfM9cfRz rHRwZ7ymdE59XiRcgEKrD6Z jcQ08DnHdeKQpN2ZcdA71Lw UeqQPnJ1CegB41McRrpIOjF PRpoLJkZi5fcTUppVSpb0Gf qRDoEBxjF66ho571VSXttsY mD4omjSBayvpfwPEvzokbKW pejmI8GRo0pjAlyaltuNceo GFpblxmMVxmczIwXGxhbmcx BVCmYRbwL1slFaZiOTQjeCe fBXffh1IwQIErTJKdMyXaON 0vWeOvHSh0JPUaaH7bJa3aq ZNjsC8uoRNtWVplTDB8cPUs WASiOIQiMZMpJP04J4XwieX zDPkdQNXpDZSrnE1vMM89uA JlciBhbmQgInBhcmlldGFsI HBsZXVyYSIgaXMgYSAxLjUg sKIjXjrdaLUrBpFeO50srN8 dzJvylpVyXmR1GF5zoKwftw PsvYXuu72ftJKiYF3tqOPox Arxv7NpURH9mEcjfKNlzvUw roYrrqHlqGGboVQtnSU4RIJ vaG5zGFWjKUSleshnQTIhUo 9uIqAaNGl2TIRqbE8xKg3od WHjsB6zfMGiTZqzWFW1iXLk PZHvEPNsGKHvYC60B3HaoxQ kSYgbLXPbZVKviM0iMM79qW RjscMirbLfEvIqQ7w3QZsjs 1FiCNbyAhLpWTagKVGyXL1b GTwhMl5fTSulIB3dJRTdXCF czfRdx36qk1BbjQNtEOSujv vpLCGbU4AogDgmfPTod4Rkw GFnaWMsIGZpYnJvbWVtYnJh uv90ptZ1hSAjuUFdZIubmAA vRWkyGPLjoUhjSMb9VNU9Pk 2ccGHlHXDnhrSFGS0QIi4gM HBhclxwYXJccGFyZFxwbGFp kujeFSxzfpF6BVOkDWozHSZ xXGZzMjBcbGFuZzEwMzNcaG ljaFxmMVxkYmNoXGYxXGxvY 2hcZjFcZnMyMCBDLiBSZWNl dQFkVHSbqrNqm5JnWYbnnlU sYWJlbGVkIHdpdGggdGhlIH DuoYhsavIwbzLaCU8bXNRiC 8Jyo6Wfg78uwrDoMpKyODEp ZCAibHVuZywgcmlnaHQgbWl kZGxlIGxvYmUiIGlzIGEgMy 09EPeiFU04VRaoEC4eEZExM BAtmtNue33wr4SuhGFxYVOm sazqTmmlhg3tRY6vyhBgl0Y wCKLsb4Q3DLfgs8nlY1vjsU GbPN14qJNcnQpgg5HjmIo7x GVkIGluIEMxLiBccGFyXHBh ciBELiBSZWNlaXZlZCBpbiB xn3KeHKvjaeEdQUShyHHwKZ dpdGggdGhlIHBhdGllbnQnc qXlMF8hZRByR6Fmi2Klk94j bnVtYmVyIGFuZCAicmlnaHQ xlIGjUUKwzQ3dMPSylJMoZL AyLjMgeCAwLjcgeCAwLjIgY 60jlBSgUUQnsjotZvgtje0s XS5xpxMyo4XhBVNef3X0WCq yh4zdW1ocaINnGO02sMIigL pts8QrdUd3aEDfNMtcFGNsB uTOTY9spdGwqRUyxI== MICROSCOPIC i4zzcSAqADAzpGBkPdMiPIN DESCRIPTION (test code yASBix5sgGPOumEKxRjVaQd = 3371) NcZnRuYmpcdWMxXGRlZmYwe 6iez137mUUlu8sjOESoDlF9 lFPiIWQsyAWiO504n1frt2i bqrBlcQW0VWLfFEX4ZWjpvf CzetJ8FIseaHEgEuN8KBcvd yAaQMorrdFavhUrIra6ARAf W981HEL2iYktl5ouTQM9BGW eXYTvOyFgIh4yoHMkI109JR VzEUFEZWTduNo2WQBsgzVjz fLjmGRMb349L874p2hfKAUd xuOgfZnYodrxp4qeU117ZZC hcGVydzEyMjQwXHBhcGVyaD T7ZVQyTO8pnxxdTbXbRH7oy ooaVwNpBT8qgox4LeMyNX4l cmdiNzIwXGhlYWRlcnkwXGZ ve1BeaxjnJG1yH1Det3P5oA 9maXRcZGVmdGFiNzIwXGZvc x8thLKsWTuwy6FlDCW7ktR8 sDWjuWIvVWYfNC77Lofuv4O iRsacJKW5LSFixtRdb3Hkf5 efSmGndkIiH1liC1EfNUKoW COpAQKbBrFrdjQbc4Pzc8Wk nOTzlPe5s2pzLXEmGDApdQf xc6oaOFM9CNZsN0R6sIBvj3 tlLIvhJVShvGL6rqmoONakX DKddsT5qvdhGVtqKXIqmIP8 cfevWJhpCELnMsO9gexnMRo aMZVnRVP8THuny139HPT0EL xzYmtwYWdlXHBnbmNvbnRcc GduZGVjXHBsYWluXHBsYWlu XGYwXGZzMjRccWxccGxhaW5 iQhDpIzGvVCnuOA7uMXMoG6 qnaHBxOYFbDPFdU8kkJfSvu C7oyPrgCHmsjpKeJIQawlWj dc1cNO7xeNCkwP== Gross assessment was [facility] performed at ([facility], code = 2777) Department of Pathology, [address] [place] [address], Technical component [facility] was performed at ([facility], code = 2778) Department of Pathology, [address] [place] [address], Professional component [facility] was performed at ([facility], code = 2779) Department of Pathology, [address] [place] [address], [facility] [id number] 11:43:00Surgical Pathology Report Case: [id number] Authorizing Provider: Fernando Andrews MD Collected: 04/14/2019 1654 Ordering Location: [facility] Received: 04/15/2019 0933 PERIOPERATIVE SERVICES Pathologist: aGy Puentes MD Specimens: A) - Pleura, PARIETAL [...] DIAGNOSTIC ALTERATION. Signing Pathologist Direct Phone Line: [phone], right.A. Pleura. B. Lung, right [...] tissue, which is entirely submitted in D1. PA/ewPerformed.[facility], Department of Pathology, [address] [place] [address], [facility], Department of Pathology, [address] [place] [address], [facility], Department of Pathology, [address] [place] [address], COO, CHEST, 1 VIEW, NON [id number] 10:13:00Reason for exam:->s/p R VATSShould this be [...] [place] Verified Date/Time: 04/17/2019 10:13:50 Reading Location: [facility] Radiology Reading Room POCT- GLUCOSE [id number] 05:44:00 Test Item Value Reference Range Interpretation Comments POC-GLUCOSE METER 99 mg/dL 70-110 : TESTED A T [facility] (BEAKER) (test code = [place], 1538) [address]: 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 ID = [id number] for [employer]OL[employer] [id number] 04:57:00 Test Item Value Reference Range Interpretation [...] S NOT APPLICABLE FOR DIALYSIS PATIEN TS. Computer Installer ID - [id number] 04:36:00 Test Item Value Reference Range Interpretation Comments PHOSPHORUS (BEAKER) (test code = 3.8 mg/dL 2.3-4.7 604) Computer Installer ID - [id number] 04:36:00 Test Item Value Reference Range Interpretation Comments MAGNESIUM (BEAKER) (test code = 2.3 mg/dL 1.6-2.6 627) Computer Installer ID - [id number] 04:08:00 Test Item Value Reference Range Interpretation Comments PTT (test code = 18363-9) 41.6 22.5- 36.0 seconds H Lab Interpretation (test code = Abnormal 17911-9) [facility]APTT[facility] 04:08:00 Test Item Value Reference Range Interpretation Comments PARTIAL THROMBOPLASTIN TIME 41.6 seconds 22.5-36.0 H (BEAKER) (test code = 760) PROTHROMBIN TIME/[id number] 04:07:00 Test Item Value Reference Range Interpretation [...] for patients wiht mechanical heart valves.BLOOD GAS, [id number] 04:02:00 Test Item Value Reference Range Interpretation [...] 40.0 % CBC W/PLT COUNT & AUTO [id number] 03:56:00 Test Item Value Reference Range Interpretation [...] (BEAKER) (test code = 2801) Hemoglobin and qflwvkwgve3687-40-21 00:46:00 Test Item Value Reference Range Interpretation Comments Hemoglobin (test code = 7.7 13.7- 17.5 GM/DL L 786-4) Hematocrit (test code = 23.6 % 40.1-51 L 4544-3) DORI (test code = DORI) Computer Installer ID - [id number] Lab Interpretation (test Abnormal code = 75557-2) [facility] HospitalHEMOGLOBIN AND [id number] 00:46:00 Test Item Value Reference Range Interpretation Comments HEMOGLOBIN (BEAKER) (test code = 7.7 GM/DL 13.7-17.5 L 410) HEMATOCRIT (BEAKER) (test code = 23.6 % 40.1-51.0 L 411) Computer Installer ID - [id number]-GLUCOSE LOHLE7310-78-32 00:22:00 Test Item Value Reference Range Interpretation Comments POC-GLUCOSE METER 98 mg/dL 70-110 : TESTED A T [facility] (BEAKER) (test code = [place], 1538) [address]: 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 ID = [id number] for SAGA Y, SANDRA Prepare sqrbujwinxgrmrp2626-76-26 23:54:00 Test Item Value Reference Range Interpretation Comments Unit ABO (test code = A Pos 0069598) UNIT NUMBER (test code = [id number] 934-0) Status (test code = 6757053) TX_TIMEINCHART Blood Bank Product (test code CRYOPRECIPITATE = 2263) PRODUCT CODE (test code = L8626A81 933-2) [facility] [id number] 23:54:00 Test Item Value Reference Range Interpretation Comments Unit ABO (test code = 5162130) A Pos UNIT NUMBER (test code = [id number] 934-0) Status (test code = 8380999) TX_TIMEINCHART Blood Bank Product (test code FFP = 2263) PRODUCT CODE (test code = W0487D71 933-2) [facility] [id number] 19:03:00 Test Item Value Reference Range Interpretation Comments POC-GLUCOSE METER 93 mg/dL 70-110 : TESTED A T [facility] 6720 (BEAKER) (test code = ILDA Calvert [facility], 1538) [address]: 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 ID = [id number] for DRU MONTE BASIC METABOLIC [id number] 17:08:00 Test Item Value Reference Range Interpretation [...] S NOT APPLICABLE FOR DIALYSIS PATIEN TS. Computer Installer ID - [id number] 17:06:00 Test Item Value Reference Range Interpretation Comments PHOSPHORUS (BEAKER) 4.5 mg/dL 2.3-4.7 Specimen slightly (test code = 604) hemolyzed Computer Installer ID - BSCBC W/PLT COUNT & AUTO [id number] 16:39:00 Test Item Value Reference Range Interpretation [...] (BEAKER) (test code = 2801) BLOOD GAS, [id number] 16:16:00 Test Item Value Reference Range Interpretation [...] (test code = 1819) 40.0 % POCT-GLUCOSE [id number] 13:36:00 Test Item Value Reference Range Interpretation Comments POC-GLUCOSE METER 93 mg/dL 70-110 : [facility] (test code = ILDA Calvert [facility], 1538) [address]: 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 ID = [id number] for MICHAELU NTMYLES Venous doppler arm, [id number] 10:57:26Ejection FractionSLEH ECHO HEARTLAB MKCKESSON CPACS Left [...] of Study 04/15/2019 Age 63 Visit Number [id number] Gender Male Accession Number [id number] Date of 1955 Referring Yonathan Najera Room Number 7A05 Physician Nawaf, COMMUNICATIONS PROGRAM MANAGER Public Relations Aidee Ruggiero, RVT Interpreting Asia Tapia, Physician [...] in cm/s ; Diameters are measured in [facility] HEMOGLOBIN AND [id number] 09:42:00 Test Item Value Reference Range Interpretation Comments HEMOGLOBIN (BEAKER) (test code = 8.0 GM/DL 13.7-17.5 L 410) HEMATOCRIT (BEAKER) (test code = 24.1 % 40.1-51.0 L 411) Computer Installer ID - [id number], CHEST, 1 VIEW, NON [id number] 06:37:00Reason for exam:->s/p R VATSShould this be [...] S NOT APPLICABLE FOR DIALYSIS PATIEN TS. Computer Installer ID - DBSpecimen slightly esjmqjlPNVEANECCP2801-70-47 04:26:00 Test Item Value Reference Range Interpretation Comments PHOSPHORUS (BEAKER) (test code = 5.1 mg/dL 2.3-4.7 H 604) Computer Installer ID - [id number] 04:26:00 Test Item Value Reference Range Interpretation Comments MAGNESIUM (BEAKER) (test code = 2.2 mg/dL 1.6-2.6 627) Computer Installer ID - AHHSWS4331-16-08 04:09:00 Test Item Value Reference Range Interpretation Comments PARTIAL THROMBOPLASTIN TIME 35.4 seconds 22.5-36.0 (BEAKER) (test code = 760) PROTHROMBIN TIME/[id number] 04:08:00 Test Item Value Reference Range Interpretation [...] mechanical heart valves.CBC W/PLT COUNT & AUTO [id number] 03:57:00 Test Item Value Reference Range Interpretation [...] PERCENT (BEAKER) (test code = 2801) Calcium, [id number] 03:44:00 Test Item Value Reference Range Interpretation Comments Calcium, Ion (test code = 1994-3) 1.09 mmol/L 1.12-1.27 L pH, Blood (test code = 28674-5) 7.44 Lab Interpretation (test code = Abnormal 70106-7) [facility], [id number] 03:44:00 Test Item Value Reference Range Interpretation Comments CALCIUM IONIZED (BEAKER) (test 1.09 mmol/L 1.12-1.27 L code = 698) PH, BLOOD (BEAKER) (test code = 7.44 1810) BLOOD GAS, [id number] 03:44:00 Test Item Value Reference Range Interpretation [...] (test code = 1819) 40.0 % POCT-GLUCOSE [id number] 23:26:00 Test Item Value Reference Range Interpretation Comments POC-GLUCOSE METER 117 mg/dL 70-110 H : TESTED A T [facility] 6720 (BEAKER) (test code = ILDA [address], 1538) [address]: 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 ID = [id number] for NE NEEL PRESSLEY CBC W/PLT COUNT & AUTO [id number] 23:13:00 Test Item Value Reference Range Interpretation [...] PERCENT (BEAKER) (test code = 2801) Central [id number] 17:48:17Enoch Chung NP 04/15/2019 5:50 PMCentral LineDate/Time: [...] called to verify the correct patient, procedure, equipment,technical support representative and site/side marked as required.Indications: vascular accessPreparation: [...] NoneType of anesthesia: NoneGrafts or Implants: NoneCHI [facility] CenterBASIC METABOLIC [id number] 16:33:00 Test Item Value Reference Range Interpretation [...] S NOT APPLICABLE FOR DIALYSIS PATIEN TS. Computer Installer ID - JOSE [id number] 16:29:00 Test Item Value Reference Range Interpretation Comments PHOSPHORUS (BEAKER) (test code = 5.0 mg/dL 2.3-4.7 H 604) Computer Installer ID - JOSE EBLOOD GAS, [id number] 16:18:00 Test Item Value Reference Range Interpretation [...] 45.0 % CBC W/PLT COUNT & AUTO [id number] 16:17:00 Test Item Value Reference Range Interpretation [...] = 2801) RAD, CHEST, 1 VIEW, NON [id number] 14:28:00Reason for exam:- >hemothoraxShould this be performed [...] Cruz Verified Date/Time: 04/15/2019 14:28:00 Reading Location: [facility] Radiology Reading Room SPIN/CONCENTRATION CHARGE 2019-04-15 14:00:00 Test Item Value Reference Range Interpretation Comments Concentration charged (test code = Done 2657) [facility] [id number] 14:00:00 Test Item Value Reference Range Interpretation Comments CONCENTRATION CHARGED (BEAKER) (test Done code = 2657) Thromboelastograph (TEG)2019-04-15 13:00:00 Test Item Value Reference Range Interpretation Comments TEG Activated Clotting Time (test 5.0 4.0- 7.0 minutes code = 68140-9) TEG Fibrinogen Activity (test 75.9 61.0- 73.0 degrees H code = 36903-3) TEG Platelet Aggregation (test 69.6 55.0- 65.0 MM H code = 94826-1) TEG Fibrinolysis (test code = 0.1 % 0-5 66937-0) TEG-H Activated Clotting Time 5.1 4.0- 7.0 minutes (test code = 1411) TEG-H Fibrinogen Activity (test 76.0 61.0- 73.0 degrees H code = 1412) TEG-H Platelet Aggregation (test 65.7 55.0- 65.0 MM H code = 1413) TEG-H Fibrinolysis (test code = 4.1 % 0-5 1414) Lab Interpretation (test code = Abnormal 29162-8) [facility] HospitalTHROMBOELASTOGRAPH (TEG)2019-04-15 13:00:00 Test Item Value Reference [...] (test 4.1 % 0.0-5.0 code = 1414) [id number] 11:47:00 Test Item Value Reference Range Interpretation Comments Case Report (test code Medical Cytology Report = 104) Case: [id number] Authorizing Provider: Fernando Andrews MD Collected: 04/14/2019 1548 Ordering Location: [facility] Received: 04/15/2019 0913 PERIOPERATIVE SERVICES Pathologist: Sean Piedra MD Specimen: Pleural, Right, Multi loculated pleural effusions DIAGNOSIS (test code = u6xkaNHnQKQmx6ztZIEmuUX 3220) uZzEwMzNcZnRuYmpcdWMxIH rjloZmUTiny0XhE1BwAvJcN FxhbnNpXGRlZmxhbmcxMDMz FVJ2orVmAHArOWobPMPyGCb eKy1jjRIrlTrkKaIuZCUaf0 kglmCIbhvntTg7w6qfNPBrD xP8qQIgXYwgU8ecxbLdhATb LLOpQHk4pG95URVkgF5jeCO yCSynhvVvXrM8PIsfYYRbWb D8NQPknILkKRCwT8lmCDTeK WxzISPvXLvcxAAdGBR9pKgb p6T5aKVohBSkkHnmMqCkGpC cVUHKp1AaJRr1kVukQ4RzIA QrOmI7lIFkATGoBRqpZAGhW LBsnwW8aC22DDpiwiK2oFIf q8Ncm13tb815hW7udMRwGSW 8YEXxEBMjvCBtKMXoZFY1FP KjuEUvB3m1PiZnkAGkZ3F4Y yArgLIuV2V8HiVubIDxX8T2 BgTboFWuDDDvsZEiIu4whBQ ivNFatz5sth12HKL2t8HnaD kdWYA1ENR2DyQoUn3fjLFtT WXxNX3rXpWgcULtKREfre06 yUoyGLamtkHtfQ1xCbEbYNH jcTLsBGEyOY9saXTnHJJteI 5ucmxjXHBnYnJkcmhlYWRcc VjwseIdGb6ldAvdXPS0ASkm I1chsX5nClB1FEpsN4kfbO9 tCNz1AXhzeLZ6OSXwjN2rMI 9songnc3ceMjYgKS7vkpara 1jlZaTvMC0gnlv8f8biNsEa CD0aguhux3qxIyRlXHqrZVX zsecdJEMod1CzcehhKEIge8 YjC6ShjIisO70tsYseE43qF AOejJtvaG9rsZmfzG0tWzAj ZnMyNFxxbFxwbGFpblxmMVx mczIwXGxhbmcxMDMzXGhpY2 eaXvRaHIZjgFjzCAayt9NuO GYxXGZzMjAgUklHSFQgUExF BJBCNSKBAFLGTGQxQ6mHY1O CPQ5BTOcpmExmETFgKPSpPL 9HO8EIAWEFXGRRCoIKRRrPT 05BTkNZXHBhciAgICAgIFBS OPMYOLjRIG5EKFppVahSK3G yrVRldWmwfbMjPClyb1WlGI blVCFiFH5ixVmaSSLwEE5eK WJpX3svnR4pbgx1AzIjRVGh KzV4YYIleeU3Muv3JNPoEOc ib5wtg7OjAFAlEWu8mTboXo PjNFIlk5wynkYmFvWcMUBxD KSbTDKnkTTmP362n4jyb2xf mnSzaHX6EHQjVOP4GBcsxpS gksM3GWtvmRUcEtL9FRrcfw YsNNmqdoBxliWiXpt0OLBwI 305HMP3yPyck1xrHRN9YCLo EICfDaZsUd6xpKUeU603JKX kXWPOVOFibDc0GIKideMhxx AlvUJOh581C951o3ziVSRyj gAezKoKvephe6irU910XNYq cGVydzEyMjQwXHBhcGVyaDE 0PSGsTU4bexniIPmdLShhZZ ZcgnO9PFHhxVTvJ3RbAVYzW H4hqyfxSIC8JSpwEMPoQFF3 QuDhRNCcm3Lneor7XwNoqd9 vre54DOS7w5YrhLbnRXZ5AV E1BnOsIo0kaBEnBLCzAG1kS oGehJXsZOCibx41yIkvPHet SIB3WATyvpYih0Vjw8miVmF qrkCcP5saW2GqPOYoNTRtUK MoNzGackJyi5Gsk8KjrIHmr Zk5l3yiOCUdBIPlhIssz3hn HBI7QIEgePJrP5gybN8cSXF xRO7olbyez0buOMnvHVtzTN OrjPI8evT7VWVinYWwL6Jtj T8nZRZcTJtdKZCjhmk0GmRk Zv6onVEmxLzuKYseMshnVUm lXHBnbmNvbnRccGduZGVjXH BsYWluXHBsYWluXGYwXGZzM jRccWxcbGFuZzEwMzNcaGlj mVlkFOufGlUyLHRvWWfuU5y dGwGqVcGfQwq8SCJvdVWpVL GqFth7YQRbbCIvYIPIsGcwy R6xODQimPhivD8krBI0LMEl wvOwnDQCyQ3lAKQApG7qLwE 5BqTuGuT5NNKrKKwBKSHlaj 19 CPT Code(s) (test code z2zwyYWnCTYoaTTjQlPaFLT = 3357) fKNKqy3bxAJWlfZDaHiJgVk NcZnRuYmpcdWMxXGRlZmYwe 6uyw943pJIba4mzKRZzSmB4 zRGhXHEutRVaG500n0oef4w zdlFnfQB1YVHyPUW4DKgzks ZwkfM2NGefxYRsCoY9YJjcq cCoFPobdgCpkeSxUmt7KEIi O776RGP3rQhxa7ezWLZ4NAT zYDFeUxIeFb2fxBInB084YD HaTCXBSTIxoBu0FBNizrYlx tYozULHx047O785v6phKMGw gmVviOiRvopgy5moQ823RJG hcGVydzEyMjQwXHBhcGVyaD Z2CFQqDI8jsviuYzWlEM1sd iwyEfDmYN3nrtg6ZcUcHC8z cmdiNzIwXGhlYWRlcnkwXGZ sj0ZhfkuyNI9zL4Zll1F0kZ 9maXRcZGVmdGFiNzIwXGZvc d3ohQXqPOsov4KzCXN2oqR3 kFXczCBmHGLxXK71Ebalo4B tLremGRU8AMAgmvHat2Qww3 ezVmDitpLmH5dhR5AfDJCfS EYvWPYdXbOjnqSif2Yzd3Al dJNlySw9n1gjNBGeDAXgxYe nc6cqJGN3KMAfA5L3rAFgi4 crMLdjHMVasAI4fcxrXLrwN KSqadD0zzjhWUwjXBSihMN2 mvacCYnqTSFoUuM5mjqyXHp iUTHzQYN2BQyhf038MIE5OO xzYmtwYWdlXHBnbmNvbnRcc GduZGVjXHBsYWluXHBsYWlu XGYwXGZzMjRccWxccGxhaW5 aKzWhVkIaWAmcRB1kGFWmU7 rqwJPcGZPyQTGgC9sxMgQav O3ebNwiPVtofbImWGk3KUT3 XHBhcn0= CLINICAL DATA (test g9arkWLhDZHfrSNiVpKsGLZ code = 3351) nFVIdh1ikGZJosLNnXoDvJq NcZnRuYmpcdWMxXGRlZmYwe 9sye506vBRew5adBUBqWaB2 tGCsLPLpbBPoQ275AEYsKUo xd5odk7IsGVGsbZRtv3A6EP OHsxpjoHk8oLraR31jx7W1X tetS2tpARIyUWIcF0MpBS1e PXPiYza3FIL8ESD1MRWzEFN sY4IgGW8pUWHzfDEpNYe3g3 vmcGxiDFDlVUX4q9yzOFnic kAlRJ5byd4kxHq8k1rfnjYt AHXtMFYuwJPWAZRwV0AtnQs aYz8uzKl8qBagPtscKUT3Gh i0TW4vcw58aao7qIjqYTBeq bgdTkS8KJkaUJLjvxhnRUd6 MFxtYXJnbDcyMFxtYXJncjc yMFxtYXJndDcyMFxtYXJnYj uqVLpjQOZeRPB4TEskb491P ID8WZsif4rgc5kdhJXjLua5 LQJdKbWiZiwwLYfdd2Ogv1v iKVUysx0oZUP3rVBdsWelx4 Y0kTMkWTOfkSEkufMoVYHzJ eO1VIafNL0sxu09BCKsQAR6 uf6qqAPyyZjtlhVbyWGxJHt xL5FkJZFzp979LXRiI6QnNP Kvq8X6qaJfZxKxNFLfkYB6m vO5UULhFPa6aRLnnnY0hrTi eMRtB1xmsE50AoCuxDFdV4U deC60TpHtiUOeB5WypL15Ql RagMKiS1GbhS05DeXbhGPrX XJelMRsEs6jdSGsyAGyj5Uu aBRlUVqjH93ku013KPVfxbW kU4qjmSLsyalbaTWhntskDM xmgbC5SRKlTPVmQQhoZKVnU GZzMjBcbGFuZzEwMzNcaGlj iGnoCZduVjHhYYSrWOarG4v cZjFcZnMyMCBSaWdodCBtdW n9bFCrn9M2zWB6IVJgrSptw RBafCDeWkA2q0zrmsBzNLJn YGPxs94wWZhzWOG2tTDickH zcGlyYXRvcnkgZmFpbHVyZV xwYXJ9 SPECIMEN SOURCE (test n3heiVOgCTUciYWpJnTzOTY code = 3377) vOSUon9ywWVDegNHnYzJnEb NcZnRuYmpcdWMxXGRlZmYwe 4twy625lFWuy8yhRRIdBfS9 rGBnIERfhJVrA487d1cho1p xukAblDI5HVOxLDC5PUjwxi SegyQ5BCdolGYtJdG5HLovg eBdOPieduGdvxSjYoc1FYDa V983XAM9mQspc0fzHUD1XRP fXFJaEmDpJi4ljIVqD164ZQ XkDMBPWJEpxPb6DXWjqpWrc jKdvDKPa595K123q9vaPSXc agGchUaYoneai4hlD948NRP hcGVydzEyMjQwXHBhcGVyaD T8GRQtLW9eaulfOxGxMZ8sk kzdUeQaVN2hpvr5WtMvWI4d cmdiNzIwXGhlYWRlcnkwXGZ yk6AinaunUS1rB4Ami7T9qH 9maXRcZGVmdGFiNzIwXGZvc x5txXEqBVsco9FpMKD1pvR2 eTCstOQpCNGsIM38Mjrft4E zQvrfAUX4RXVnqxUmm0Tlu7 qpPbBeimRnN5omM3OpMQCjX YHyNCBoDkQvnlKof0Wer3Zf pSKylEz2w7thFPLhOEHvjHc ho8pbNFP9JIOzL7R3oQMku5 evUDktDBZjtKT2keqxEVohA UJyrjY5tldvHYmxQMWnePN7 phliOIbgFGTcLtC3dbgjGCs pNZGyZCP4MXyim646RDW6WH xzYmtwYWdlXHBnbmNvbnRcc GduZGVjXHBsYWluXHBsYWlu XGYwXGZzMjRccWxccGxhaW5 qRmCnFsKoYDoaFH3fDSQgM3 mltIEfNABsYRPpH3rhQoMvz S9wuAwuGEiyjhPlMNBRO0pO IFBMRVVSQUwgRkxVSURccGF yfQ== GROSS DESCRIPTION o7fucYPtYXDkuXUqYhZjMQD (test code = 3366) tJMHym4eyFXJxmJVuIuPtJt NcZnRuYmpcdWMxXGRlZmYwe 2pdx602rIHjj6grMBKoHwE0 bVOoVXHzfQUhU118KQAkAIs ac3gnn4GiANQndNYyc6E8YN YDagghhXk3mMwlJ21et0W2L bgkP7hrHPEvIIGiT1QkLQ5a TUWtZgm9SLH3GXG8JXCoGNH vX4IgFI5yWQSvnJAoMWf3g9 tqqNlnUJMxAVJ7l1tlRJiqs fUsCO2xot2dtFu2y9mdggWp YTGuZVMapYROUWLjP8EmoAk qBs5haTv9pAuaKswiXDT7Zp s2QG0ovl33iho4sHnhHITli yopZaT3NZzfAJYiwrzhZGh9 MFxtYXJnbDcyMFxtYXJncjc yMFxtYXJndDcyMFxtYXJnYj rqDDsnIRGkNVW7YYmnn391J NC1ONtma4qlh3pghPYtMgh1 WRMlUvGoDhvrWEtye7Vkp3m fHQOiim0hVNQ0jJIbtGsti4 L5sFYzCSFolSIfndAkHFLwB pN3LYyvJI3ysb07NOQdXLU3 kq0jzLGkyAmwbqIfeFZdXHg qP5CdLKVjw287RVNfR8YnWI Lkg1L7lhGsOaLmZFTgwOK1y qJ1LANxCJy1dBRuovJ2xnHc rGVwB0anbH25SwAfzKFoW2Y rfK45ZoJqtQAvU8AlgG27Ui HncLPyE1MqhR40ApWqvMPxU WTzvZToMt2htSRzzYBjs2En iJHuADzlL87mi993ZKPbnrY wX4kllQUxllfzgZTyhkhmGH mtegJ3HGQvCGTqOAwtEVPfW GZzMjJcbGFuZzEwMzNcaGlj qXmnYSpzQqVzIGOvKAgoR0j eLvSkLuIbTqZ6QWKmdSaxXM Yll90bvNfaGZJsaSTbu9Bom eBbsFOeYNHroEbwT3MjYBhq MDIxNzIwXHBhciBSZWNlaXZ lZDogMDIxODIwXHBhcn0= STATEMENT OF ADEQUACY Satisfactory (test code = 2757) Gross assessment was [facility] performed at ([facility], code = 2777) Department of Pathology, [address] [place] [address], Technical component [facility] was performed at ([facility], code = 2778) Department of Pathology, [address] [place], [place] [address], Professional component [facility] was performed at ([facility], code = 2779) Department of Pathology, [address] [place] [address], [facility] 11:47:00Medical Cytology Report Case: [id number] Aut horizing Provider: Fernando Andrews MD Collected: 04/14/2019 1548 Ordering Location: [facility] Received: 04/15/2019 0913 PERIOPERATIVE SERVICES Pathologist: Sean Piedra MD Specimen: Pleural, Right, Multi loculated pleural effusions RIGHT PLEURAL FLUID (CYTOSPINS): - NEGATIVE FOR MALIGNANCY PREDOMINANTLY BLOOD Signing Pathologist Direct Phone Line: [phone] signed by Sean Piedra MD on 04/15/2019 at 11:47 [id number] multi loculated pleural effusions, pneumonia, acute respiratory failureRIGHT PLEURAL MEVIT152 mls bloody; 4 cytospinsCollected: [id number]: [id number] [facility],Department of Pathology, [address] [place] [address], [facility], Department of Pathology, [address] [place] [address], [facility], Department of Pathology, [address] [place] [address], HCDN-GLUCOSE [id number] 11:33:00 Test Item Value Reference Range Interpretation Comments POC-GLUCOSE METER 113 mg/dL 70-110 H : TESTED A T [facility] (BEAKER) (test code = DOROTAJAVI [address], 1538) [address]: 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 ID = [id number] for JIGNA ALEJANDRE CBC W/PLT COUNT & AUTO [id number] 09:14:00 Test Item Value Reference Range Interpretation [...] PERCENT (BEAKER) (test code = 2801) CALCIUM, [id number] 06:51:00 Test Item Value Reference Range Interpretation Comments CALCIUM IONIZED (BEAKER) (test 1.11 mmol/L 1.12-1.27 L code = 698) PH, BLOOD (BEAKER) (test code = 7.47 1810) RAD, CHEST, 1 VIEW, NON [id number] 05:32:00Reason for exam:->s/p R VATSShould this be performed at the bedside?->YesFINAL REPORT CLINICAL INDICATION: Postop Comparison: 04/14/20192 hours The cardiomediastinal contours are stable. Right-sided parenchymal and pleural opacities are similar toprevious. A small right pneumothorax is noted at the lateral mid to upper chest. Support lines are stable. Signed: Reji [facility] Verified Date/Time: 04/15/2019 05:32:15 BLOOD GAS, [id number] 05:01:00 Test Item Value Reference Range Interpretation [...] code = 1819) 100.0 % Lactic Acid, [id number] 04:56:00 Test Item Value Reference Range Interpretation Comments Lactate, Art (test code = 1.2 mmol/L 0.5-2.2 2874) DORI (test code = DORI) Computer Installer ANGELI BOWERS M Lab Interpretation (test Normal code = 39874-2) [facility]OLIC [id number] 04:56:00 Test Item Value Reference Range Interpretation [...] S NOT APPLICABLE FOR DIALYSIS PATIEN TS. Computer Installer ID - ELISSA MLACTIC ACID, [id number] 04:56:00 Test Item Value Reference Range Interpretation Comments LACTATE BLOOD ARTERIAL (2) 1.2 mmol/L 0.5-2.2 (BEAKER) (test code = 2874) Computer Installer ID - ELISSA [id number] 04:53:00 Test Item Value Reference Range Interpretation Comments PHOSPHORUS (BEAKER) (test code = 4.3 mg/dL 2.3-4.7 604) Computer Installer ID - ELISSA [id number] 04:53:00 Test Item Value Reference Range Interpretation Comments MAGNESIUM (BEAKER) (test code = 2.0 mg/dL 1.6-2.6 627) Computer Installer ID - ELISSA MCBC W/PLT COUNT & AUTO [id number] 04:41:00 Test Item Value Reference Range Interpretation [...] 0-1 PERCENT (BEAKER) (test code = 2801) [id number] 02:37:00 Test Item Value Reference Range Interpretation Comments Fibrinogen (test code = 3255-7) 177 mg/dl 225-434 L Lab Interpretation (test code = Abnormal 76212-3) [facility] HospitalPT/[id number] 02:37:00 Test Item Value Reference Range Interpretation Comments Protime (test code = 19.8 11.9- 14.2 H 5902-2) seconds INR (test code = 1.7 <=5.9 6301-6) PTT (test code = 41.1 22.5- 36.0 H 81911-7) seconds DORI (test code = DORI) Effective 07/24/2018: PT Reference Range ChangeNew: 11.9-14.2 Previous: 11.7-14.7 RECOMMENDED COUMADIN/WARFARIN INR THERAPY RANGESSTANDARD DOSE: 2.0-3.0 Includes: PROPHYLAXIS for venous thrombosis, systemic embolization; TREATMENT for venous thrombosis and/or pulmonary embolus.HIGH RISK: Target INR is 2.5-3.5 for patients wiht mechanical heart valves. Lab Interpretation Abnormal (test code = 34850-1) [facility] HospitalFIBRINOGEN2020-02-18 02:37:00 Test Item Value Reference Range Interpretation Comments FIBRINOGEN LEVEL (BEAKER) (test 177 mg/dl 225-434 L code = 658) PT/[id number] 02:37:00 Test Item Value Reference Range Interpretation [...] INR is2.5-3.5 for patients wiht mechanical heart valves.[id number] 02:37:00 Test Item Value Reference Range Interpretation Comments PARTIAL THROMBOPLASTIN TIME 41.1 seconds 22.5-36.0 H (BEAKER) (test code = 760) PROTHROMBIN TIME/[id number] 02:36:00 Test Item Value Reference Range Interpretation [...] mechanical heart valves.CBC W/PLT COUNT & AUTO [id number] 01:17:00 Test Item Value Reference Range Interpretation Comments WHITE BLOOD CELL COUNT 10.9 K/ L 3.5-10.5 H (BEAKER) (test code = 775) RED BLOOD CELL COUNT 1.74 M/ L 4.63-6.08 L (BEAKER) (test code = 761) HEMOGLOBIN (BEAKER) 4.4 GM/DL 13.7-17.5 LL Post jordy stevie (test code = 410) specimen p er B.no.[id number]. HEMATOCRIT (BEAKER) 14.6 % 40.1-51.0 L (test [...] GRANULOCYTES-RELATIVE PERCENT (BEAKER) (test code = 2801) [id number] 00:58:00 Test Item Value Reference Range Interpretation Comments Cortisol, Total (test code = 10.6 ug/dL 3.7-19.4 2755) DORI (test code = DORI) Computer Installer ID - BS Lab Interpretation (test Normal code = 81293-1) [facility] HospitalCORTISOL2020-02-18 00:58:00 Test Item Value Reference Range Interpretation Comments CORTISOL, TOTAL (BEAKER) (test 10.6 ug/dL 3.7-19.4 code = 2755) Computer Installer ID - BSPOCT-GLUCOSE [id number] 00:35:00 Test Item Value Reference Range Interpretation Comments POC-GLUCOSE METER 105 mg/dL 70-110 : TESTED A T [facility] (BEAKER) (test code = ILDA [address], 1538) [address]: 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 ID = [id number] for Yuli Conklin RAD, CHEST, 1 VIEW, NON [id number] 22:34:00[facility] arrival to [facility] for exam:->s/p R VATS decorticationShould this be performed at the [facility] e?->YesFINAL REPORT TECHNIQUE: Frontal view of the [...] Verified Date/Time: 04/14/2019 22:34:49 Reading Location: [address] Consult Reading Room [id number] 20:24:00 Test Item Value Reference Range Interpretation Comments PHOSPHORUS (BEAKER) (test code = 4.0 mg/dL 2.3-4.7 604) Computer Installer ID - [id number] 20:24:00 Test Item Value Reference Range Interpretation Comments MAGNESIUM (BEAKER) (test code = 1.8 mg/dL 1.6-2.6 627) Computer Installer ID - BSBLOOD GAS, [id number] 20:22:00 Test Item Value Reference Range Interpretation [...] (test code = 1819) 80.0 % CALCIUM, [id number] 20:19:00 Test Item Value Reference Range Interpretation Comments CALCIUM IONIZED (BEAKER) (test 1.23 mmol/L 1.12-1.27 code = 698) PH, BLOOD (BEAKER) (test code = 7.44 1810) COMPREHENSIVE METABOLIC [id number] 19:53:00 Test Item Value Reference Range Interpretation [...] S NOT APPLICABLE FOR DIALYSIS PATIEN TS. Computer Installer ID - BSHGB/HCT (H&H)-Stat [id number] 17:56:00 Test Item Value Reference Range Interpretation Comments Hemoglobin (test code = 786-4) 9.0 g/dL 13-16.8 L Hematocrit (test code = 4544-3) 26.0 % 40-50 L Lab Interpretation (test code = Abnormal 19557-1) [facility] HospitalPotassium-Stat [id number] 17:56:00 Test Item Value Reference Range Interpretation Comments Potassium (test code = 2823-3) 3.4 meq/L 3.6-5.5 L Lab Interpretation (test code = Abnormal 96592-0) [facility] HospitalBLOOD GAS, [id number] 17:56:00 Test Item Value Reference Range Interpretation [...] (test code = 1819) 100.0 % CALCIUM, [id number] 17:56:00 Test Item Value Reference Range Interpretation Comments CALCIUM IONIZED (BEAKER) (test 1.30 mmol/L 1.12-1.27 H code = 698) PH, BLOOD (BEAKER) (test code = 7.46 1810) POTASSIUM-STAT [id number] 17:56:00 Test Item Value Reference Range Interpretation Comments POTASSIUM (BEAKER) (test code = 3.4 meq/L 3.6-5.5 L 379) HGB/HCT (H&H) - STAT [id number] 17:56:00 Test Item Value Reference Range Interpretation Comments HEMOGLOBIN (BEAKER) (test code = 9.0 g/dL 13.0-16.8 L 410) HEMATOCRIT (BEAKER) (test code = 26.0 % 40.0-50.0 L 411) Glucose-Stat [id number] 17:55:00 Test Item Value Reference Range Interpretation Comments Glucose (test code = 2345-7) 100 mg/dL 70-110 Lab Interpretation (test code = Normal 46363-8) [facility] [id number] 17:55:00 Test Item Value Reference Range Interpretation Comments Sodium (test code = 2951-2) 138 meq/L 135-148 Lab Interpretation (test code = Normal 88792-8) [facility] HospitalGLU[facility]SE-STAT [id number] 17:55:00 Test Item Value Reference Range Interpretation Comments GLUCOSE RANDOM (BEAKER) (test code 100 mg/dL 70-110 = 652) SODIUM NA-STAT [id number] 17:55:00 Test Item Value Reference Range Interpretation Comments SODIUM (BEAKER) (test code = 381) 138 meq/L 135-148 BLOOD GAS, [id number] 16:42:00 Test Item Value Reference Range Interpretation [...] (test code = 1819) 100.0 % POTASSIUM-STAT [id number] 16:42:00 Test Item Value Reference Range Interpretation Comments POTASSIUM (BEAKER) (test code = 3.4 meq/L 3.6-5.5 L 379) HGB/HCT (H&H) - STAT [id number] 16:42:00 Test Item Value Reference Range Interpretation Comments HEMOGLOBIN (BEAKER) (test code = 10.1 g/dL 13.0-16.8 L 410) HEMATOCRIT (BEAKER) (test code = 30.0 % 40.0-50.0 L 411) CALCIUM, [id number] 16:41:00 Test Item Value Reference Range Interpretation Comments CALCIUM IONIZED (BEAKER) (test 1.12 mmol/L 1.12-1.27 code = 698) PH, BLOOD (BEAKER) (test code = 7.51 1810) GLUCOSE-STAT [id number] 16:39:00 Test Item Value Reference Range Interpretation Comments GLUCOSE RANDOM (BEAKER) (test code 104 mg/dL 70-110 = 652) SODIUM NA-STAT [id number] 16:39:00 Test Item Value Reference Range Interpretation Comments SODIUM (BEAKER) (test code = 381) 137 meq/L 135-148 GLUCOSE-STAT [id number] 15:31:00 Test Item Value Reference Range Interpretation Comments GLUCOSE RANDOM (BEAKER) (test code = 92 mg/dL 70-110 652) SODIUM NA-STAT [id number] 15:31:00 Test Item Value Reference Range Interpretation Comments SODIUM (BEAKER) (test code = 381) 135 meq/L 135-148 CALCIUM, [id number] 15:31:00 Test Item Value Reference Range Interpretation Comments CALCIUM IONIZED (BEAKER) (test 1.07 mmol/L 1.12-1.27 L code = 698) PH, BLOOD (BEAKER) (test code = 7.55 1810) BLOOD GAS, [id number] 15:31:00 Test Item Value Reference Range Interpretation [...] (test code = 1819) 100.0 % POTASSIUM-STAT [id number] 15:31:00 Test Item Value Reference Range Interpretation Comments POTASSIUM (BEAKER) (test code = 3.4 meq/L 3.6-5.5 L 379) HGB/HCT (H&H) - STAT [id number] 15:31:00 Test Item Value Reference Range Interpretation Comments HEMOGLOBIN (BEAKER) (test code = 10.2 g/dL 13.0-16.8 L 410) HEMATOCRIT (BEAKER) (test code = 30.0 % 40.0-50.0 L 411) RAD, CHEST, 1 VIEW, NON [id number] 10:51:00Reason for exam:->eval pleural effusionsShould this be [...] MDReport Verified Date/Time: 04/14/2019 10:51:03 Reading Location: [facility] Type and screen, automated 2019-04-14 02:31:00 Test Item Value Reference Range Interpretation Comments ABO/RH AUTOMATED (BEAKER) (test A NEGATIVE code = 2260) Ab Scrn (test code = 890-4) NEGATIVE [facility]OLIC [id number] 01:52:00 Test Item Value Reference Range Interpretation [...] S NOT APPLICABLE FOR DIALYSIS PATIEN TS. Computer Installer ID - EMILIE [id number] 01:51:00 Test Item Value Reference Range Interpretation Comments PHOSPHORUS (BEAKER) (test code = 2.8 mg/dL 2.3-4.7 604) Computer Installer ID - EMILIE [id number] 01:51:00 Test Item Value Reference Range Interpretation Comments MAGNESIUM (BEAKER) (test code = 2.1 mg/dL 1.6-2.6 627) Computer Installer ID - EMILIE LCBC W/PLT COUNT & AUTO [id number] 01:30:00 Test Item Value Reference Range Interpretation [...] PERCENT (BEAKER) (test code = 2801) PROTHROMBIN [id number] 01:26:00 Test Item Value Reference Range Interpretation [...] is2.5-3.5 for patients wiht mechanical heart valves.POCT-GLUCOSE [id number] 20:47:00 Test Item Value Reference Range Interpretation Comments POC-GLUCOSE METER 114 mg/dL 70-110 H : TESTED A T [facility] 6720 (BEAKER) (test code = ILDA Calvert [facility], 1538) [address]: 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 ID = [id number] for ALBERTINA MEADE POCT-GLUCOSE [id number] 17:43:00 Test Item Value Reference Range Interpretation Comments POC-GLUCOSE METER 117 mg/dL 70-110 H : TESTED A T [facility] [address] (BEAKER) (test code [facility], = 1538) 220[address]: 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 ID = [id number] for LEWI S, [place] POCT-GLUCOSE [id number] 12:16:00 Test Item Value Reference Range Interpretation Comments POC-GLUCOSE METER 111 mg/dL 70-110 H : TESTED A T [facility] [address] (BEAKER) (test code [facility], = 1538) [address]: 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 ID = [id number] for LEWI S, [place] RAD, CHEST, 1 VIEW, NON [id number] 08:47:00Reason for exam:->right pleural effusion s/p TPAShould [...] [place] Verified Date/Time: 04/13/2019 08:47:02 Reading Location: [facility] C013T Transitional Reading Room Electronically s [...] S NOT APPLICABLE FOR DIALYSIS PATIEN TS. Computer Installer ID - KENNHepatic function [id number] 06:12:00 Test Item Value Reference Range Interpretation Comments Protein, Total (test code 5.5 6.0- 8.3 gm/dL L = 2885-2) Albumin (test code = 1.8 g/dL 3.5-5 L 47820-6) Total Bilirubin (test code 1.1 mg/dL 0.2-1.2 = 1975-2) Bilirubin, Direct (test 0.7 mg/dL 0.1-0.5 H code = 1968-7) Alkaline Phosphatase (test 157 U/L 40-150 H code = 6768-6) AST (test code = 1920-8) 38 U/L 5-34 H ALT (test code = 1742-6) 34 U/L 6-55 DORI (test code = DORI) Computer Installer ID - CHELSEY Lab Interpretation (test Abnormal code = 14303-7) [facility] HospitalHEPATIC FUNCTION [id number] 06:12:00 Test Item Value Reference Range Interpretation [...] (test code = 34 U/L 6-55 347) Computer Installer ID - KENNPOCT-GLUCOSE [id number] 06:10:00 Test Item Value Reference Range Interpretation Comments POC-GLUCOSE METER 126 mg/dL 70-110 H : TESTED A T [facility] (BEAKER) (test code = ILDA [address], 1538) [address]: 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 ID = [id number] for CH UA, HENRISON CBC W/PLT COUNT & AUTO [id number] 06:07:00 Test Item Value Reference Range Interpretation [...] 0-1 PERCENT (BEAKER) (test code = 2801) [id number] 06:07:00 Test Item Value Reference Range Interpretation Comments PHOSPHORUS (BEAKER) (test code = 3.0 mg/dL 2.3-4.7 604) Computer Installer ID - [id number] 06:07:00 Test Item Value Reference Range Interpretation Comments MAGNESIUM (BEAKER) (test code = 2.1 mg/dL 1.6-2.6 627) Computer Installer ID - [id number] 05:52:00 Test Item Value Reference Range Interpretation Comments PARTIAL THROMBOPLASTIN TIME 32.7 seconds 22.5-36.0 (BEAKER) (test code = 760) POCT-GLUCOSE [id number] 17:32:00 Test Item Value Reference Range Interpretation Comments POC-GLUCOSE METER 83 mg/dL 70-110 : TESTED A T [facility] (BEAKER) (test code = ILDA [address], 1538) [address]: 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 ID = [id number] for STOJ CIC, NADA Body fluid culture + gram [id number] 14:07:00 Test Item Value Reference Range Interpretation Comments Result (test code = No growth 6463-4) Gram Stain Result <1+ gram negative rods (test code = 1123) [facility] [id number] 14:07:00 Test Item Value Reference Range Interpretation Comments CULTURE (BEAKER) (test No growth code = 1095) GRAM STAIN RESULT <1+ WBCs (BEAKER) (test code = 1123) GRAM STAIN RESULT <1+ gram negative rods (BEAKER) (test code = 60072) POCT-GLUCOSE [id number] 12:20:00 Test Item Value Reference Range Interpretation Comments POC-GLUCOSE METER 84 mg/dL 70-110 : TESTED A T [facility] 6720 (BEAKER) (test code = ILDA Calvert [facility], 1538) [address]: 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 ID = [id number] for STOJ CIC, NADA RAD, CHEST, 1 VIEW, NON [id number] 07:44:00Reason for exam:->eval pleural effusionsShould this be [...] Rivas MDReport Verified Date/Time: 04/12/201907:44:33 Reading Location: [address] Body Reading Room BASIC METABOLIC [id number] 06:46:00 Test Item Value Reference Range Interpretation [...] S NOT APPLICABLE FOR DIALYSIS PATIEN TS. Computer Installer ID - ELISSA [facility] W/PLT COUNT & AUTO [id number] 06:45:00 Test Item Value Reference Range Interpretation [...] 0-1 PERCENT (BEAKER) (test code = 2801) [id number] 06:45:00 Test Item Value Reference Range Interpretation Comments PHOSPHORUS (BEAKER) (test code = 3.8 mg/dL 2.3-4.7 604) Computer Installer ID - ELISSA [id number] 06:45:00 Test Item Value Reference Range Interpretation Comments MAGNESIUM (BEAKER) (test code = 2.1 mg/dL 1.6-2.6 627) Computer Installer ID - ELISSA MPOCT-GLUCOSE [id number] 05:33:00 Test Item Value Reference Range Interpretation Comments POC-GLUCOSE METER 78 mg/dL 70-110 : TESTED A T [facility] 6720 (BEAKER) (test code = ILDA Calvert [facility], 1538) [address]: 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 ID = [id number] for LEGA SPI, BARI POCT-GLUCOSE [id number] 00:19:00 Test Item Value Reference Range Interpretation Comments POC-GLUCOSE METER 78 mg/dL 70-110 : Notified RN/MD: TESTED (BEAKER) (test code = AT [facility] 67[address] DANIEL 1538) [facility], 770 30: 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 ID = [id number] for LEGA SPI, BARI POCT-GLUCOSE [id number] 17:51:00 Test Item Value Reference Range Interpretation Comments POC-GLUCOSE METER 89 mg/dL 70-110 : TESTED A T [facility] 6720 (BEAKER) (test code = ILDA Calvert [facility], 1538) [address]: 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 ID = [id number] for RADHA CLAROS RAD, CHEST, 1 VIEW, NON [id number] 13:20:00Reason for exam:->eval pleural effusionsShould this be [...] Robert MDReport Verified Date/Time: 04/11/2019 13:20:58 ReadingLocation: [facility] Radiology Reading Room POCT-GLUCOSE METER 2019-04-11 12:21:00 Test Item Value Reference Range Interpretation Comments POC-GLUCOSE METER 82 mg/dL 70-110 : TESTED A T [facility] 6720 (BEAKER) (test code = [facility] Enrike [facility], 1538) [address]: 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 ID = [id number] for RADHA CLAROS POCT-GLUCOSE [id number] 10:51:00 Test Item Value Reference Range Interpretation Comments POC-GLUCOSE METER 84 mg/dL 70-110 : TESTED A T [facility] 6720 (BEAKER) (test code = [facility] [employer] [facility], 1538) [address]: 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 ID = [id number] for DANIELLE CAROLINAMIKE ALDRIDGE BASIC METABOLIC [id number] 08:47:00 Test Item Value Reference Range Interpretation [...] S NOT APPLICABLE FOR DIALYSIS PATIEN TS. Computer Installer ID Sultana SCOTT [id number] 08:46:00 Test Item Value Reference Range Interpretation Comments PHOSPHORUS (BEAKER) (test code = 3.3 mg/dL 2.3-4.7 604) Computer Installer ID Sultana SCOTT [id number] 08:46:00 Test Item Value Reference Range Interpretation Comments MAGNESIUM (BEAKER) (test code = 2.2 mg/dL 1.6-2.6 627) Computer Installer ID Sultana LUIOCT-GLUCOSE [id number] 07:13:00 Test Item Value Reference Range Interpretation Comments POC-GLUCOSE METER 84 mg/dL 70-110 : TESTED A T [facility] 6720 (BEAKER) (test code = IL[address], 1538) [address]: 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 ID = [id number] for SUBL MARÍA FENG CBC W/PLT COUNT & AUTO [id number] 06:26:00 Test Item Value Reference Range Interpretation [...] PERCENT (BEAKER) (test code = 2801) PROTHROMBIN [id number] 06:22:00 Test Item Value Reference Range Interpretation [...] is2.5-3.5 for patients wiht mechanical heart valves.POCT-GLUCOSE [id number] 00:28:00 Test Item Value Reference Range Interpretation Comments POC-GLUCOSE METER 97 mg/dL 70-110 : TESTED A T [facility] 6720 (BEAKER) (test code = ILDA Calvert [facility], 1538) 56163: 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 ID = [id number] for MARÍA DON POCT-GLUCOSE [id number] 15:14:00 Test Item Value Reference Range Interpretation Comments POC-GLUCOSE METER 97 mg/dL 70-110 : TESTED A T [facility] 6720 (BEAKER) (test code = [employer] [facility], 1538) 25940: 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 ID = [id number] for JAVIER IVY RAD, CHEST, 1 VIEW, NON [id number] 09:36:00Reason for exam:->eval pleural effusionsShould this be [...] MDReport Verified Date/Time: 04/10/2019 09:36:48 Reading Location: [facility] Radiology ReadingRoom BASIC METABOLIC PANEL 2019-04-10 [...] S NOT APPLICABLE FOR DIALYSIS PATIEN TS. Computer Installer ID - [id number] 06:06:00 Test Item Value Reference Range Interpretation Comments PHOSPHORUS (BEAKER) (test code = 3.7 mg/dL 2.3-4.7 604) Computer Installer ID - [id number] 06:06:00 Test Item Value Reference Range Interpretation Comments MAGNESIUM (BEAKER) (test code = 2.0 mg/dL 1.6-2.6 627) Computer Installer ID - LACBC W/PLT COUNT & AUTO [id number] 05:54:00 Test Item Value Reference Range Interpretation [...] PERCENT (BEAKER) (test code = 2801) POCT-GLUCOSE [id number] 00:49:00 Test Item Value Reference Range Interpretation Comments POC-GLUCOSE METER 113 mg/dL 70-110 H : TESTED A T [facility] 6720 (BEAKER) (test code = [facility], 1538) 15350: 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 ID = [id number] for CL ARK, ALBERTINA POCT-GLUCOSE [id number] 17:50:00 Test Item Value Reference Range Interpretation Comments POC-GLUCOSE METER 86 mg/dL 70-110 : TESTED A T [facility] 6720 (BEAKER) (test code = [facility], 1538) 05243: 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 ID = [id number] for STOJ CIC, NADA FL, LEXIS, SWALLOW FUNCTION, WITH CINE OR [id number] 16:22:00Reason for exam:->dysphagia, on TFsFINAL REPORT Modified [...] MDReport Verified Date/Time: 04/09/2019 16:22:18 Reading Location: [facility] Radiology Reading Room POCT-GLUCOSE [id number] 12:00:00 Test Item Value Reference Range Interpretation Comments POC-GLUCOSE METER 97 mg/dL 70-110 : TESTED A T [facility] 6720 (BEWevebob) (test code = [employer] [facility], 1538) 45474: 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 ID = [id number] for DUON G, PRISCILLA POCT-GLUCOSE [id number] 09:53:00 Test Item Value Reference Range Interpretation Comments POC-GLUCOSE METER 102 mg/dL 70-110 : TESTED A T [facility] 6720 (BEAKER) (test code = [employer] [place], 1538) 31981: 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 ID = [id number] for DU GILBERTO, PRISCILLA RAD, CHEST, 1 VIEW, NON [id number] 07:20:00Reason for exam:->eval pleural effusionsShould this be [...] Signed: JR Marek, Christie HEARNeport Verified Date/Time: 04/09/2019 07:20:55 [facility] Electronically signed by: CHRISTIE Piña 04/09/2019 07:20 [id number] 06:48:00 Test Item Value Reference Range Interpretation Comments PHOSPHORUS (BEAKER) (test code = 2.8 mg/dL 2.3-4.7 604) Computer Installer ID - [id number] 06:48:00 Test Item Value Reference Range Interpretation Comments MAGNESIUM (BEAKER) (test code = 1.8 mg/dL 1.6-2.6 627) Computer Installer ID - GALAPBASIC METABOLIC [id number] 06:48:00 Test Item Value Reference Range Interpretation [...] S NOT APPLICABLE FOR DIALYSIS PATIEN TS. Computer Installer ID - GALAPCBC W/PLT COUNT & AUTO [id number] 06:39:00 Test Item Value Reference Range Interpretation [...] PERCENT (BEAKER) (test code = 2801) POCT-GLUCOSE [id number] 06:29:00 Test Item Value Reference Range Interpretation Comments POC-GLUCOSE METER 70 mg/dL 70-110 : TESTED A T [facility] 6720 (BEAKER) (test code = [facility] [employer] [facility], 1538) 23978: 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 ID = [id number] for CARROLL GRIMMA POCT-GLUCOSE [id number] 05:40:00 Test Item Value Reference Range Interpretation Comments POC-GLUCOSE METER 90 mg/dL 70-110 : TESTED A T [facility] 6720 (BEAKER) (test code = [facility], 1538) 16529: 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 ID = [id number] for AMIE KEARNEY POCT-GLUCOSE [id number] 17:57:00 Test Item Value Reference Range Interpretation Comments POC-GLUCOSE METER 90 mg/dL 70-110 : TESTED A T [facility] 6720 (BEAKER) (test code = [facility] [employer] [facility], 1538) 40965: 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 ID = [id number] for ADILSON PRUITT, NADA POCT-GLUCOSE [id number] 12:47:00 Test Item Value Reference Range Interpretation Comments POC-GLUCOSE METER 97 mg/dL 70-110 : TESTED A T [facility] 6720 (BEAKER) (test code = [facility], 1538) 61046: 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 ID = [id number] for TONY Yañez JAVIER RAD, CHEST, 1 VIEW, NON [id number] 07:33:00Reason for exam:->eval pleural effusionsShould this be [...] MDReport Verified Date/Time: 04/08/2019 07:33:22 Reading Location: [facility] Radiology Reading Room POCT-GLUCOSE [id number] 05:33:00 Test Item Value Reference Range Interpretation Comments POC-GLUCOSE METER 97 mg/dL 70-110 : [facility] (test code = [place], 1538) 31364: 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 ID = [id number] for ELIAZAR DEY BASIC METABOLIC [id number] 05:33:00 Test Item Value Reference Range Interpretation [...] S NOT APPLICABLE FOR DIALYSIS PATIEN TS. Computer Installer ID - [id number] 05:16:00 Test Item Value Reference Range Interpretation Comments PHOSPHORUS (BEAKER) (test code = 2.5 mg/dL 2.3-4.7 604) Computer Installer ID - [id number] 05:16:00 Test Item Value Reference Range Interpretation Comments MAGNESIUM (BEAKER) (test code = 1.9 mg/dL 1.6-2.6 627) Computer Installer ID - GALAPCBC W/PLT COUNT & AUTO [id number] 05:10:00 Test Item Value Reference Range Interpretation [...] PERCENT (BEAKER) (test code = 2801) POCT-GLUCOSE [id number] 00:34:00 Test Item Value Reference Range Interpretation Comments POC-GLUCOSE METER 111 mg/dL 70-110 H : TESTED A T [facility] 6720 (BEAKER) (test code = [facility], 1538) 01378: 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 ID = [id number] for ELIAZAR ANAND BASIC METABOLIC [id number] 18:38:00 Test Item Value Reference Range Interpretation [...] S NOT APPLICABLE FOR DIALYSIS PATIEN TS. Computer Installer ID - BSPOCT-GLUCOSE [id number] 17:48:00 Test Item Value Reference Range Interpretation Comments POC-GLUCOSE METER 113 mg/dL 70-110 H : TESTED A T [facility] 6720 (BEAKER) (test code = [facility] [place], 1538) 48614: 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 ID = [id number] for MARQUIS SMITH FUNGUS CULTURE + [id number] 17:33:00 Test Item Value Reference Range Interpretation [...] to previous culture of Ana albicansAlbumin Pleural [id number] 16:52:00 Test Item Value Reference Range Interpretation Comments Albumin, Pleural Fluid (test code = 0.8 1748-3) [facility] [id number] 16:50:00 Test Item Value Reference Range Interpretation Comments PROTEIN, TOTAL, PLEURAL FLUID (test 2.6 code = 2882-9) [facility] [id number] 11:47:00 Test Item Value Reference Range Interpretation Comments POC-GLUCOSE METER 102 mg/dL 70-110 : TESTED A T [facility] 6720 (BEAKER) (test code = IL[place], 1538) 76829: 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 ID = [id number] for MARQUIS SMITH RAD, CHEST, 1 VIEW, NON [id number] 11:26:00Reason for exam:->S/p L chest tube removalFINAL [...] MDReport Verified Date/Time: 04/07/2019 11:26:55 Reading Location: [facility] Radiology Reading Room RAD, CHEST, 1 VIEW, NON [id number] 10:15:00Reason for exam:->eval pleural effusionsShould this be [...] Sanz Verified Date/Time: 04/07/2019 10:15:23 [facility] Reading Room 10:15 [id number] 08:15:00 Test Item Value Reference Range Interpretation Comments PHOSPHORUS (BEAKER) (test code = 3.3 mg/dL 2.3-4.7 604) Computer Installer ID - PHILIP [id number] 08:15:00 Test Item Value Reference Range Interpretation Comments MAGNESIUM (BEAKER) (test code = 2.0 mg/dL 1.6-2.6 627) Computer Installer ID - PHILIP CBASIC METABOLIC [id number] 08:15:00 Test Item Value Reference Range Interpretation [...] S NOT APPLICABLE FOR DIALYSIS PATIEN TS. Computer Installer ID - PHILIP CCBC W/PLT COUNT & AUTO [id number] 07:40:00 Test Item Value Reference Range Interpretation [...] PERCENT (BEAKER) (test code = 2801) POCT-GLUCOSE [id number] 06:50:00 Test Item Value Reference Range Interpretation Comments POC-GLUCOSE METER 92 mg/dL 70-110 : TESTED A T [facility] 6720 (BEAKER) (test code = [facility], 1538) 40896: 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 ID = [id number] for ELIAZAR DEY POCT-GLUCOSE [id number] 00:17:00 Test Item Value Reference Range Interpretation Comments POC-GLUCOSE METER 109 mg/dL 70-110 : TESTED A T [facility] 6720 (BEAKER) (test code = [facility], 1538) 37756: 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 ID = [id number] for ELIAZAR ANAND POCT-GLUCOSE [id number] 18:05:00 Test Item Value Reference Range Interpretation Comments POC-GLUCOSE METER 100 mg/dL 70-110 : TESTED A T [facility] 6720 (BEAKER) (test code = [facility], 1538) 57973: 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 ID = [id number] for JOHN SIMONERICARDO BUI POCT-GLUCOSE [id number] 18:05:00 Test Item Value Reference Range Interpretation Comments POC-GLUCOSE METER 90 mg/dL 70-110 : TESTED A T [facility] 6720 (BEAKER) (test code = [facility], 1538) 62030: 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 ID = [id number] for CLAY REBOLLEDO EVANS BASIC METABOLIC [id number] 17:33:00 Test Item Value Reference Range Interpretation [...] S NOT APPLICABLE FOR DIALYSIS PATIEN TS. Computer Installer ID - ALMA FERNANDEZAD, CHEST, 1 VIEW, NON [id number] 08:21:00Reason for exam:->eval pleural effusionsShould this be [...] Signed: Delaney Rajan Verified Date/Time: 04/06/2019 08:21:47 [id number] 07:38:00 Test Item Value Reference Range Interpretation Comments PHOSPHORUS (BEAKER) (test code = 3.7 mg/dL 2.3-4.7 604) Computer Installer ID - SONIA [id number] 07:38:00 Test Item Value Reference Range Interpretation Comments MAGNESIUM (BEAKER) (test code = 2.1 mg/dL 1.6-2.6 627) Computer Installer ID Sultana SCOTT FBASIC METABOLIC [id number] 07:38:00 Test Item Value Reference Range Interpretation [...] S NOT APPLICABLE FOR DIALYSIS PATIEN TS. Computer Installer ID - PERRY FCBC W/PLT COUNT & AUTO [id number] 07:35:00 Test Item Value Reference Range Interpretation [...] PERCENT (BEAKER) (test code = 2801) POCT-GLUCOSE [id number] 05:27:00 Test Item Value Reference Range Interpretation Comments POC-GLUCOSE METER 89 mg/dL 70-110 : TESTED A T [facility] 6720 (BEAKER) (test code = [place], 1538) 59927: 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 ID = [id number] for CANDIDO LEMUS BASIC METABOLIC [id number] 17:09:00 Test Item Value Reference Range Interpretation [...] S NOT APPLICABLE FOR DIALYSIS PATIEN TS. Computer Installer ID - ELISSA MPOCT-GLUCOSE [id number] 11:34:00 Test Item Value Reference Range Interpretation Comments POC-GLUCOSE METER 104 mg/dL 70-110 : TESTED A T [facility] 6720 (BEAKER) (test code = ILDA [place], 1538) 48639: 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 ID = [id number] for JIGNA ALEJANDRE BASIC METABOLIC [id number] 05:51:00 Test Item Value Reference Range Interpretation [...] S NOT APPLICABLE FOR DIALYSIS PATIEN TS. Computer Installer ID - ELISSA [id number] 05:43:00 Test Item Value Reference Range Interpretation Comments PHOSPHORUS (BEAKER) (test code = 3.5 mg/dL 2.3-4.7 604) Computer Installer ID - ELISSA [id number] 05:43:00 Test Item Value Reference Range Interpretation Comments MAGNESIUM (BEAKER) (test code = 1.9 mg/dL 1.6-2.6 627) Computer Installer ID - ELISSA MCBC W/PLT COUNT & AUTO [id number] 05:28:00 Test Item Value Reference Range Interpretation [...] = 2801) RAD, CHEST, 1 VIEW, NON [id number] 04:46:00Reason for exam:->eval pleural effusionsShould this be [...] Stiles MDReport Verified Date/Time: 04/05/2019 04:46:52 POCT-GLUCOSE [id number] 23:55:00 Test Item Value Reference Range Interpretation Comments POC-GLUCOSE METER 103 mg/dL 70-110 : TESTED A T [facility] 6720 (BEAKER) (test code [facility], = 1538) 41409: 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 ID = [id number] for SUGU , SHEENAMOL FUNGUS CULTURE + [id number] 18:09:00 Test Item Value Reference Range Interpretation Comments CULTURE (BEAKER) A 2+ Ana albicans (test code = 1095) FUNGUS SMEAR No fungi seen (BEAKER) (test code = 1406) RAD, ABDOMEN/KUB, 1 VIEW [id number] 18:03:00Reason for exam:->TFFINAL REPORT Abdomen date 04/04/2019 Comment: Frontal view of the abdomen demonstrates a feeding tube present with tip noted in the descending duodenum. Signed: Tomasa Foss MDReport Verified Date/Time: 04/04/2019 18:03:16 Reading Location: [address] Consult Reading Room XR abdomen / KUB 1 [id number] 18:03:00Interface, External Ris In - 04/04/2019 6:05 PM CSTFINAL REPORT Abdomen date04/04/2019 Comment: Frontal view of the abdomen demonstrates a feeding tube present with tip noted inthe descending duodenum. Signed: Tomasa Foss MDReport Verified Date/Time: 04/04/2019 18:03:16 Reading Location: [facility] C013W [facility] [id number] 17:54:00 Test Item Value Reference Range Interpretation Comments POC-GLUCOSE METER 82 mg/dL 70-110 : TESTED A T [facility] 6720 (BEAKER) (test code = [place], 1538) 02128: 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 ID = [id number] for MJ ERS, ISABELA BASIC METABOLIC [id number] 17:40:00 Test Item Value Reference Range Interpretation [...] S NOT APPLICABLE FOR DIALYSIS PATIEN TS. Computer Installer ID - BSRAD, ABDOMEN/KUB, 1 VIEW [id number] 15:46:00Reason for exam:- >korpak placementFINAL REPORT RAD, [...] Garcia Verified Date/Time: 04/04/2019 15:46:45 Reading Location: [facility] Radiology Reading Room POCT-GLUCOSE [id number] 12:21:00 Test Item Value Reference Range Interpretation Comments POC-GLUCOSE METER 94 mg/dL 70-110 : TESTED A T [facility] 6720 (BEAKER) (test code = [place], 1538) 19883: 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 ID = [id number] for SAND ERS, ISABELA RAD, CHEST, 1 VIEW, NON [id number] 08:56:00Reason for exam:->eval pleural effusion, CT in [...] Infante Verified Date/Time: 04/04/2019 08:56:32 Reading Location: [facility] Radiology Reading Room CBC W/PLT COUNT [...] PERCENT (BEAKER) (test code = 2801) POCT-GLUCOSE [id number] 05:41:00 Test Item Value Reference Range Interpretation Comments POC-GLUCOSE METER 107 mg/dL 70-110 : TESTED A T [facility] 6720 (BEAKER) (test code = [place], 1538) 34745: 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 ID = [id number] for EDISON BELTRAN [id number] 05:17:00 Test Item Value Reference Range Interpretation Comments PHOSPHORUS (BEAKER) (test code = 4.2 mg/dL 2.3-4.7 604) Computer Installer ID - ELISSA [id number] 05:17:00 Test Item Value Reference Range Interpretation Comments MAGNESIUM (BEAKER) (test code = 1.9 mg/dL 1.6-2.6 627) Computer Installer ID - ELISSA MBASIC METABOLIC [id number] 05:17:00 Test Item Value Reference Range Interpretation [...] S NOT APPLICABLE FOR DIALYSIS PATIEN TS. Computer Installer ID - ELISSA MPOCT-GLUCOSE [id number] 00:06:00 Test Item Value Reference Range Interpretation Comments POC-GLUCOSE METER 109 mg/dL 70-110 : TESTED A T [facility] 6720 (BEAKER) (test code = [place], 1538) 49478: 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 ID = [id number] for EDISON BELTRAN [id number] 20:00:00 Test Item Value Reference Range Interpretation Comments MAGNESIUM (BEAKER) 1.9 mg/dL 1.6-2.6 Specimen slightly (test code = 627) hemolyzed Computer Installer ID - ANHOCT-GLUCOSE [id number] 17:14:00 Test Item Value Reference Range Interpretation Comments POC-GLUCOSE METER 114 mg/dL 70-110 H : TESTED A T [facility] 6720 (BEAKER) (test code = [facility], 1538) 24900: 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 ID = [id number] for COLLIN ESCOBAR BASIC METABOLIC [id number] 16:17:00 Test Item Value Reference Range Interpretation [...] S NOT APPLICABLE FOR DIALYSIS PATIEN TS. Computer Installer ID - BSPOCT-GLUCOSE [id number] 12:20:00 Test Item Value Reference Range Interpretation Comments POC-GLUCOSE METER 108 mg/dL 70-110 : TESTED A T [facility] 6720 (BEAKER) (test code = [facility], 1538) 57451: 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 ID = [id number] for STEFANI FARMER POCT-GLUCOSE [id number] 06:08:00 Test Item Value Reference Range Interpretation Comments POC-GLUCOSE METER 96 mg/dL 70-110 : TESTED A T [facility] 6720 (BEAKER) (test code = [facility], 1538) 61791: 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 ID = [id number] for SUGU , SHEENAMOL RAD, CHEST, 1 VIEW, NON [id number] 05:49:00Reason for exam:->chest tubesShould this be performed [...] There is no pneumothorax. Signed: Nakia [facility] Verified Date/Time: 04/03/2019 05:49:51 [id number] 02:46:00 Test Item Value Reference Range Interpretation Comments PHOSPHORUS (BEAKER) (test code = 3.1 mg/dL 2.3-4.7 604) Computer Installer ID - SANDRA [id number] 02:46:00 Test Item Value Reference Range Interpretation Comments MAGNESIUM (BEAKER) (test code = 1.8 mg/dL 1.6-2.6 627) Computer Installer ID - SANDRA WBASIC METABOLIC [id number] 02:46:00 Test Item Value Reference Range Interpretation [...] S NOT APPLICABLE FOR DIALYSIS PATIEN TS. Computer Installer ID - SANDRA WCBC W/PLT COUNT & AUTO [id number] 02:35:00 Test Item Value Reference Range Interpretation [...] PERCENT (BEAKER) (test code = 2801) POCT-GLUCOSE [id number] 00:12:00 Test Item Value Reference Range Interpretation Comments POC-GLUCOSE METER 87 mg/dL 70-110 : TESTED A T [facility] 6720 (BEAKER) (test code = [place], 1538) 61705: 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 ID = [id number] for SUGU , SHEENAMOL [id number] 23:01:00 Test Item Value Reference Range Interpretation Comments PARTIAL THROMBOPLASTIN TIME 88.0 seconds 22.5-36.0 H (BEAKER) (test code = 760) BASIC METABOLIC [id number] 18:04:00 Test Item Value Reference Range Interpretation [...] S NOT APPLICABLE FOR DIALYSIS PATIEN TS. Computer Installer ID - [id number] 17:41:00 Test Item Value Reference Range Interpretation Comments PARTIAL THROMBOPLASTIN TIME 75.2 seconds 22.5-36.0 H (BEAKER) (test code = 760) POCT-GLUCOSE [id number] 17:38:00 Test Item Value Reference Range Interpretation Comments POC-GLUCOSE METER 100 mg/dL 70-110 : TESTED A T [facility] 6720 (BEAKER) (test code = [facility], 1538) 00204: 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 ID = [id number] for ELADIA WHELAN POCT-GLUCOSE [id number] 12:31:00 Test Item Value Reference Range Interpretation Comments POC-GLUCOSE METER 88 mg/dL 70-110 : TESTED A T [facility] 6720 ([facility]) (test code = [facility], 1538) 50691: 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 ID = [id number] for PEG IAMS ELADIA RAD, CHEST, 1 VIEW, NON [id number] 09:47:00Reason for exam:->naShould this be performed at the bedside?->YesFINAL REPORT Comparison: 04/01/2019 TECHNIQUE: Single view of the chest FINDINGS: Patchy interstitial opacities and small pleural effusions, right greater than left are stable. No gross pneumothorax. Interval removal of right internal jugular central line. Remaining support lines and tubes are stable. Signed: Aiden Willettort Verified Date/Time: 04/02/2019 09:47:11 Reading Location: [facility] Radiology Reading Room 09:47 [id number] 08:29:00 Test Item Value Reference Range Interpretation Comments PARTIAL THROMBOPLASTIN TIME 41.5 seconds 22.5-36.0 H (BEAKER) (test code = 760) POCT-GLUCOSE [id number] 05:53:00 Test Item Value Reference Range Interpretation Comments POC-GLUCOSE METER 96 mg/dL 70-110 : TESTED A T [facility] 6720 (BEAKER) (test code = [facility], 1538) 24302: 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 ID = [id number] for SUGU , SHEENAMOL [id number] 02:06:00 Test Item Value Reference Range Interpretation Comments PARTIAL THROMBOPLASTIN TIME 75.8 seconds 22.5-36.0 H (BEAKER) (test code = 760) [id number] 01:58:00 Test Item Value Reference Range Interpretation Comments PHOSPHORUS (BEAKER) (test code = 3.3 mg/dL 2.3-4.7 604) Computer Installer ID - [id number] 01:58:00 Test Item Value Reference Range Interpretation Comments MAGNESIUM (BEAKER) (test code = 1.8 mg/dL 1.6-2.6 627) Computer Installer ID - ASBASIC METABOLIC [id number] 01:58:00 Test Item Value Reference Range Interpretation [...] S NOT APPLICABLE FOR DIALYSIS PATIEN TS. Computer Installer ID - ASBLOOD GAS, [id number] 01:35:00 Test Item Value Reference Range Interpretation [...] 21.0 % CBC W/PLT COUNT & AUTO [id number] 01:35:00 Test Item Value Reference Range Interpretation [...] PERCENT (BEAKER) (test code = 2801) POCT-GLUCOSE [id number] 00:00:00 Test Item Value Reference Range Interpretation Comments POC-GLUCOSE METER 100 mg/dL 70-110 : TESTED A T [facility] 6720 (BEAKER) (test code [facility], = 1538) 12642: 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 ID = [id number] for SUGU , SHEENAMOL BASIC METABOLIC [id number] 19:33:00 Test Item Value Reference Range Interpretation [...] S NOT APPLICABLE FOR DIALYSIS PATIEN TS. Computer Installer ID - [id number] 19:04:00 Test Item Value Reference Range Interpretation Comments PARTIAL THROMBOPLASTIN TIME 57.5 seconds 22.5-36.0 H (BEAKER) (test code = 760) POCT-GLUCOSE [id number] 18:18:00 Test Item Value Reference Range Interpretation Comments POC-GLUCOSE METER 105 mg/dL 70-110 : TESTED A T [facility] 6720 (BEAKER) (test code = [facility], 1538) 41737: 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 ID = [id number] for [place] LLIAMS, ELADIA POCT-GLUCOSE [id number] 11:54:00 Test Item Value Reference Range Interpretation Comments POC-GLUCOSE METER 90 mg/dL 70-110 : TESTED A T [facility] 6720 (BEAKER) (test code = [facility], 1538) 54466: 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 ID = [id number] for WILL IAMS, ELADIA [id number] 11:32:00 Test Item Value Reference Range Interpretation Comments PARTIAL THROMBOPLASTIN TIME 70.7 seconds 22.5-36.0 H (BEAKER) (test code = 760) RAD, CHEST, 1 VIEW, NON [id number] 10:46:00Reason for exam:->CT in placeShould this be [...] MDRepanni Verified Date/Time: 04/01/2019 10:46:42 Reading Location: [facility] Radiology Reading Room Legionella [id number] 10:17:00 Test Item Value Reference Range Interpretation Comments Result (test code = No Legionella species 6463-4) [facility] [id number] 10:17:00 Test Item Value Reference Range Interpretation Comments CULTURE (BEAKER) No Legionella species (test code = 1095) isolated POCT-GLUCOSE [id number] 06:39:00 Test Item Value Reference Range Interpretation Comments POC-GLUCOSE METER 100 mg/dL 70-110 : [facility] ([facility] ([facility], = 1538) 10787: 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 ID = [id number] for SUGU , SHEENAMOL [id number] 04:13:00 Test Item Value Reference Range Interpretation Comments PARTIAL THROMBOPLASTIN TIME 108.7 seconds 22.5-36.0 H (BEAKER) (test code = 760) BLOOD GAS, [id number] 04:03:00 Test Item Value Reference Range Interpretation [...] (BEAKER) (test code = 1819) 21.0 % [id number] 03:53:00 Test Item Value Reference Range Interpretation Comments PHOSPHORUS (BEAKER) (test code = 3.9 mg/dL 2.3-4.7 604) Computer Installer ID - ELISSA [id number] 03:53:00 Test Item Value Reference Range Interpretation Comments MAGNESIUM (BEAKER) (test code = 2.1 mg/dL 1.6-2.6 627) Computer Installer ID - ELISSA MBASIC METABOLIC [id number] 03:53:00 Test Item Value Reference Range Interpretation [...] S NOT APPLICABLE FOR DIALYSIS PATIEN TS. Computer Installer ID - ELISSA MCBC W/PLT COUNT & AUTO [id number] 03:44:00 Test Item Value Reference Range Interpretation [...] PERCENT (BEAKER) (test code = 2801) POCT-GLUCOSE [id number] 00:02:00 Test Item Value Reference Range Interpretation Comments POC-GLUCOSE METER 87 mg/dL 70-110 : TESTED A T [facility] 6720 (BEAKER) (test code = [facility], 1538) 97903: 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 ID = [id number] for SUGU , RENETTAENAMOL [id number] 22:40:00 Test Item Value Reference Range Interpretation Comments PARTIAL THROMBOPLASTIN TIME 43.8 seconds 22.5-36.0 H (BEAKER) (test code = 760) [id number] 20:55:00 Test Item Value Reference Range Interpretation Comments PARTIAL THROMBOPLASTIN TIME 115.9 seconds 22.5-36.0 H (BEAKER) (test code = 760) POCT-GLUCOSE [id number] 18:19:00 Test Item Value Reference Range Interpretation Comments POC-GLUCOSE METER 92 mg/dL 70-110 : TESTED A T [facility] 6720 (BEAKER) (test code = [facility], 1538) 76906: 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 ID = [id number] for PEG LUCRECIAELADIA [id number] 16:03:00Medical Cytology Report Case: [id number] Authorizing Provider: Jerald Bartlett Collected: 03/28/2019 0803 MD Devonte Ordering Location: [place] [address] ICU Received: 03/28/2019 1332 Pathologist: Lexus Robbins MD Specimen: Pleural PLEURAL FLUID (CYTOSPINS): - RARE REACTIVE MESOTHELIAL CELLS PRESENT IN A BACKGROUND OF ABUNDANT ACUTE INFLAMMATION Signing Pathologist Direct Phone Line: [phone] signed by Lexus Robbins MD on 03/31/2019 at 4:03 [id number] effusion; HFpEF, bioprosthetic valve, COPD, Afib, and chronic right pleural effusion who presented to OSH on 03/11 w/ respiratory failure and now bilateral pleural effusionsPLEURAL FLUID (LATERALITY NOT DESIGNATED)Received 20 ml dark orange fluidPrepared 4 cytospinsCollected: [id number]: [id number].[facility], Department of Pa thology, [address] [place] [address], [facility], Department of Pathology, [address] [place] [address], [facility]vtndqHigh[facility], Department of Pathology, [address] [place] [address], Hmkhxala I 2019-03-31 14:43:00 Test Item Value Reference Range Interpretation Comments Troponin I (test code = 0.20 ng/mL 0-0.03 95658-2) DORI (test code = DORI) Troponin I [...] neurological disease, and persistent tachyarrhythmia.[facility] F Lab Interpretation (test Abnormal code = 00500-6) [facility] [id number] 14:43:00 Test Item Value Reference Range Interpretation [...] failure, acidosis, acute neurological disease, and persistent tachyarrhythmia.Computer Installer ID - SONIA OMPREHENSIVE METABOLIC [id number] 14:39:00 Test Item Value Reference Range Interpretation [...] S NOT APPLICABLE FOR DIALYSIS PATIEN TS. Computer Installer ID - SONIA [id number] 14:33:00 Test Item Value Reference Range Interpretation Comments PHOSPHORUS (BEAKER) (test code = 3.7 mg/dL 2.3-4.7 604) Computer Installer ID Sultana SCOTT [id number] 14:33:00 Test Item Value Reference Range Interpretation Comments MAGNESIUM (BEAKER) (test code = 2.1 mg/dL 1.6-2.6 627) Computer Installer ID - SONIA FBASIC METABOLIC [id number] 14:33:00 Test Item Value Reference Range Interpretation [...] S NOT APPLICABLE FOR DIALYSIS PATIEN TS. PT/[id number] 14:31:00 Test Item Value Reference Range Interpretation [...] INR is2.5-3.5 for patients wiht mechanical heart valves.[id number] 14:31:00 Test Item Value Reference Range Interpretation Comments PARTIAL THROMBOPLASTIN TIME 68.3 seconds 22.5-36.0 H (BEAKER) (test code = 760) Lactic acid, [id number] 14:30:00 Test Item Value Reference Range Interpretation Comments Lactate, Venous (test code 1.7 mmol/L 0.5-2.2 = 2872) DORI (test code = DORI) Computer Installer ID - SONIA F Lab Interpretation (test Normal code = 52582-0) [facility], [id number] 14:30:00 Test Item Value Reference Range Interpretation Comments LACTATE BLOOD VENOUS (2) (BEAKER) 1.7 mmol/L 0.5-2.2 (test code = 2872) Computer Installer ID - SONIA LAGUERRED, CHEST, 1 VIEW, NON [id number] 12:14:00Reason for exam:->CT in placeShould this be [...] MDReport Verified Date/Time: 03/31/2019 12:14:06 Reading Location: [facility] Mammo Reading Room POCT-GLUCOSE [id number] 12:02:00 Test Item Value Reference Range Interpretation Comments POC-GLUCOSE METER 97 mg/dL 70-110 : TESTED A T [facility] 6720 (BEAKER) (test code = [facility], 1538) 45067: 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 ID = [id number] for WILL IAMS, ELADIA RAD, ABDOMEN/KUB, 1 VIEW [id number] 11:36:00Reason for exam:->NGT placement FINAL REPORT RAD, ABDOMEN/KUB, 1 VIEW AP INDICATION: NGT placement COMPARISON: None TECHNIQUE: Limited portable radiograph of the lower chest and upper abdomen was acquired for purposes of evaluating nasogastric tube placement FINDINGS:Nasogastric tube tip overlies the stomach Signed: Yonathan Garciaort Verified Date/Time: 03/31/2019 11:36:59 Reading Location: [facility] Radiology Reading Room TROPONIN [id number] 10:05:00 Test Item Value Reference Range Interpretation [...] failure, acidosis, acute neurological disease, and persistent tachyarrhythmia.Computer Installer ID - SONIA [id number] 07:11:00 Test Item Value Reference Range Interpretation Comments PARTIAL THROMBOPLASTIN TIME 44.8 seconds 22.5-36.0 H (BEAKER) (test code = 760) BLOOD GAS, [id number] 06:56:00 Test Item Value Reference Range Interpretation [...] code = 1819) 40.0 % BASIC METABOLIC [id number] 06:08:00 Test Item Value Reference Range Interpretation [...] S NOT APPLICABLE FOR DIALYSIS PATIEN TS. Computer Installer ID - EMILIE LPOCT-GLUCOSE [id number] 05:52:00 Test Item Value Reference Range Interpretation Comments POC-GLUCOSE METER 89 mg/dL 70-110 : [facility] ([facility] (test code = [facility] [employer] [facility], 1538) 30766: 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 ID = [id number] for SATISH CALDWELLN [id number] 05:29:00 Test Item Value Reference Range Interpretation Comments PARTIAL THROMBOPLASTIN TIME 111.7 seconds 22.5-36.0 H (BEAKER) (test code = 760) [id number] 05:27:00 Test Item Value Reference Range Interpretation Comments PHOSPHORUS (BEAKER) (test code = 3.6 mg/dL 2.3-4.7 604) Computer Installer ID Sultana PHAN [id number] 05:27:00 Test Item Value Reference Range Interpretation Comments MAGNESIUM (BEAKER) (test code = 2.1 mg/dL 1.6-2.6 627) Computer Installer ID Sultana PHAN LLACTIC ACID, [id number] 04:56:00 Test Item Value Reference Range Interpretation Comments LACTATE BLOOD VENOUS (2) (BEAKER) 1.8 mmol/L 0.5-2.2 (test code = 2872) Computer Installer ID Sultana PHAN LCBC W/PLT COUNT & AUTO [id number] 04:41:00 Test Item Value Reference Range Interpretation [...] (BEAKER) (test code = 2801) BLOOD GAS, [id number] 04:30:00 Test Item Value Reference Range Interpretation [...] = 1819) 40.0 % CT, BRAIN, WITHOUT [id number] 04:20:00FINAL REPORT EXAM: CT, BRAIN, WITHOUT CONTRAST [...] characterization. Signed: Tomasa Luque VerifiedDate/Time: 03/31/2019 04:20:24 [facility] brain without IV [id number] 04:20:00Interface, External Ris In - 03/31/2019 4:22 [...] LUQUE MD on 03/31/2019 04:20 [facility] [id number] 02:38:00 Test Item Value Reference Range Interpretation Comments TROPONIN I ([facility]) (test code = 0.22 ng/mL 0.00-0.03 397) [...] failure, acidosis, acute neurological disease, and persistent tachyarrhythmia.Computer Installer ID - EMILIE LB-TYPE NATRIURETIC FACTOR (BNP)2019-03-31 02:23:00 Test Item Value Reference Range Interpretation Comments B-TYPE NATRIURETIC PEPTIDE 1761 pg/mL 0-100 H ([facility]) (test code = 700) Computer Installer ID - EMILIE LLACTIC ACID, [id number] 02:14:00 Test Item Value Reference Range Interpretation Comments LACTATE BLOOD VENOUS (2) ([facility]) 1.8 mmol/L 0.5-2.2 (test code = 2872) Computer Installer ID - LCBECKY LPOCT-GLUCOSE [id number] 00:30:00 Test Item Value Reference Range Interpretation Comments POC-GLUCOSE METER 94 mg/dL 70-110 : [facility]) (test code = ILDA Calvert [facility], 1538) 35555: 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 ID = [id number] for EDISON CALDWELL CT, CHEST WITH IV CONTRAST- PE TEST [id number] 00:25:00FINAL REPORT Comparison: CT chest dated 03/17/2019 [...] Amy Hanson MDReport Verified Date/Time: 03/31/2019 00:25:44 [facility] chest for pulmonary [id number] 00:25:00Interface, External Ris In - 03/31/2019 12:29 [...] Amy Hanson MDReport Verified Date/Time: 03/31/2019 00:25:44 [id number] 21:46:00 Test Item Value Reference Range Interpretation Comments MAGNESIUM (BEAKER) (test code = 2.1 mg/dL 1.6-2.6 627) Computer Installer ID - KENNCOMPREHENSIVE METABOLIC [id number] 21:46:00 Test Item Value Reference Range Interpretation [...] S NOT APPLICABLE FOR DIALYSIS PATIEN TS. Computer Installer ID - NTPOperator ID - JOCELYNROPONIN [id number] 21:23:00 Test Item Value Reference Range Interpretation [...] failure, acidosis, acute neurological disease, and persistent tachyarrhythmia.Computer Installer ID - [id number] 21:21:00 Test Item Value Reference Range Interpretation Comments PHOSPHORUS (BEAKER) (test code = 4.5 mg/dL 2.3-4.7 604) Computer Installer ID - NTPLACTIC ACID, [id number] 21:15:00 Test Item Value Reference Range Interpretation Comments LACTATE BLOOD VENOUS (2) (BEAKER) 4.5 mmol/L 0.5-2.2 H (test code = 2872) Computer Installer ID - NTPRAD, CHEST, 1 VIEW, NON [id number] 21:13:00Reason for exam:->cardiac arrestShould this be performed [...] Hanson Verified Date/Time: 03/30/2019 21:13:13 POC- Calcium [id number] 20:57:00 Test Item Value Reference Range Interpretation Comments POC-Calcium Ionized 1.63 mmol/L 1.12-1.27 TESTED A T [facility] (test code = 1536) 6720 [facility] 7703 0 Lab Interpretation (test Abnormal code = 47817-7) [facility][id number] 20:57:00 Test Item Value Reference Range Interpretation Comments POC-Hemoglobin (test code 9.5 g/dL 13-16.8 L TE STED AT [facility] = 1856) 6720 [facility] [address]XWSZXU AT [facility] 67[address] [facility] 7703 0 Lab Interpretation (test Abnormal code = 31547-1) [facility]POCT-[id number] 20:57:00 Test Item Value Reference Range Interpretation Comments POC-Hematocrit (test code 28 % 40-50 L TE STED AT [facility] = 1857) [address] [place] [address] 7703 0 Lab Interpretation (test Abnormal code = 33076-9) [facility]-CALCIUM [id number] 20:57:00 Test Item Value Reference Range Interpretation Comments POC-CALCIUM IONIZED 1.63 mmol/L 1.12-1.27 HH TESTED A T [place] [address] ([facility]) (test code = [facility] 1536) [address] [id number] 20:57:00 Test Item Value Reference Range Interpretation Comments POC-HEMATOCRIT 28 % 40-50 L TESTED AT [place] [address] ([facility]) (test code = [facility] 238[address] 1857) [id number] 20:57:00 Test Item Value Reference Range Interpretation Comments POC-HEMOGLOBIN 9.5 g/dL 13.0-16.8 L TESTED AT [place] [address] ([facility]) (test code = [facility] 1856) 375[address]HJYTWN AT [facility] 6720 [facility] [address] POC-Blood gases, [id number] 20:56:00 Test Item Value Reference Range Interpretation Comments Temp. Celsius-POC (test 36.1 code = 1834) FIO2-POC (test code = 100 TESTED AT [facility] 1835) [address] [place] [address] 7703 0 pH, Arterial-POC (test 7.320 7.350-7.450 [...] 1841) Lab Interpretation (test Abnormal code = 67718-2) [facility]-[id number] 20:56:00 Test Item Value Reference Range Interpretation Comments POC-Potassium (test code 4.1 meq/L 3.6-5.5 ABUNDIO ARLENE AT [facility] = 1540) [address] [place] [address] 7703 0 Lab Interpretation (test Normal code = 67202-0) [facility]-[id number] 20:56:00 Test Item Value Reference Range Interpretation Comments POC-Sodium (test code = 147 meq/L 135-148 TEST ED AT [facility] 1542) [address] [place] [address] 7703 0 Lab Interpretation (test Normal code = 46531-9) [facility]-[id number] 20:56:00 Test Item Value Reference Range Interpretation Comments POC-Glucose (test code = 249 mg/dL 70-110 H ABUNDIO ARLENE AT [facility] 1855) [address] [place] [address] 7703 0 Lab Interpretation (test Abnormal code = 32425-5) [facility]-BLOOD GASES, [id number] 20:56:00 Test Item Value Reference Range Interpretation Comments TEMP, CELSIUS-POC 36.1 (BEAKER) (test code = 1834) FIO2-POC (BEAKER) 100 TESTED AT [facility] 6720 (test code = 1835) [place] [address] PH, ARTERIAL-POC 7.320 7.350-7.450 L (BEAKER) (test [...] H ARTERIAL-POC (BEAKER) (test code = 1841) [id number] 20:56:00 Test Item Value Reference Range Interpretation Comments POC-SODIUM (BEAKER) 147 meq/L 135-148 TESTED A T [facility] 67 (test code = 1542) [facility] [facility] [address] GITJ-[id number] 20:56:00 Test Item Value Reference Range Interpretation Comments POC-POTASSIUM 4.1 meq/L 3.6-5.5 TESTED AT [facility] 6720 (BEAKER) (test code [facility] [address] = 1540) [id number] 20:56:00 Test Item Value Reference Range Interpretation Comments POC-GLUCOSE (BEAKER) 249 mg/dL 70-110 H TESTED AT [facility] 6720 (test code = 1855) [place] [facility] [address] CBC W/PLT COUNT & AUTO [id number] 20:54:00 Test Item Value Reference Range Interpretation [...] H PERCENT (BEAKER) (test code = 2801) [id number] 18:34:00 Test Item Value Reference Range Interpretation Comments PARTIAL THROMBOPLASTIN TIME 74.5 seconds 22.5-36.0 H (BEAKER) (test code = 760) POCT-GLUCOSE [id number] 18:06:00 Test Item Value Reference Range Interpretation Comments POC-GLUCOSE METER 123 mg/dL 70-110 H : TESTED A T [facility] 6720 (BEAKER) (test code = [facility] [facility], 1538) 96229: 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 ID = [id number] for VILLAR YES, CRYSTAL BASIC METABOLIC [id number] 16:18:00 Test Item Value Reference Range Interpretation [...] S NOT APPLICABLE FOR DIALYSIS PATIEN TS. Computer Installer ID - [id number] 12:36:00 Test Item Value Reference Range Interpretation Comments PARTIAL THROMBOPLASTIN TIME 80.4 seconds 22.5-36.0 H (BEAKER) (test code = 760) POCT-GLUCOSE [id number] 12:00:00 Test Item Value Reference Range Interpretation Comments POC-GLUCOSE METER 116 mg/dL 70-110 H : TESTED A T [facility] 6720 (BEAKER) (test code = ILDA Calvert [facility], 1538) 54[address]: 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 ID = [id number] for SA NDERS, ISABELA BLOOD [id number] 11:00:00 Test Item Value Reference Range Interpretation Comments CULTURE (BEAKER) (test No growth in 5 days code = 1095) BLOOD [id number] 11:00:00 Test Item Value Reference Range Interpretation Comments CULTURE (BEAKER) (test No growth in 5 days code = 1095) RAD, CHEST, 1 VIEW, NON [id number] 10:31:00Reason for exam:->CT in placeShould this be [...] MDReport Verified Date/Time: 03/30/2019 10:31:51 Reading Location: [address] Transitional Reading Room [id number] 06:59:00 Test Item Value Reference Range Interpretation Comments PARTIAL THROMBOPLASTIN TIME 53.3 seconds 22.5-36.0 H (BEAKER) (test code = 760) POCT-GLUCOSE [id number] 06:06:00 Test Item Value Reference Range Interpretation Comments POC-GLUCOSE METER 103 mg/dL 70-110 : TESTED A T [facility] 6720 (BEAKER) (test code = ILDA Calvert [facility], 1538) 15353: 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 ID = [id number] for SILVIO BARRETT [id number] 05:16:00 Test Item Value Reference Range Interpretation Comments PHOSPHORUS (BEAKER) (test code = 3.4 mg/dL 2.3-4.7 604) Computer Installer ID - EMILIE [id number] 05:16:00 Test Item Value Reference Range Interpretation Comments MAGNESIUM (BEAKER) (test code = 2.2 mg/dL 1.6-2.6 627) Computer Installer ID - EMILIE LBASIC METABOLIC [id number] 05:16:00 Test Item Value Reference Range Interpretation [...] S NOT APPLICABLE FOR DIALYSIS PATIEN TS. Computer Installer ID - PIAYA [id number] 05:13:00 Test Item Value Reference Range Interpretation Comments PARTIAL THROMBOPLASTIN TIME 118.9 seconds 22.5-36.0 H (BEAKER) (test code = 760) CBC W/PLT COUNT & AUTO [id number] 04:58:00 Test Item Value Reference Range Interpretation [...] PERCENT (BEAKER) (test code = 2801) POCT-GLUCOSE [id number] 00:28:00 Test Item Value Reference Range Interpretation Comments POC-GLUCOSE METER 108 mg/dL 70-110 : TESTED A T [facility] 6720 (BEAKER) (test code = [facility], 1538) 57967: 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 ID = [id number] for SILVIO BARRETT POCT-GLUCOSE [id number] 18:26:00 Test Item Value Reference Range Interpretation Comments POC-GLUCOSE METER 90 mg/dL 70-110 : TESTED A T [facility] 6720 (BEAKER) (test code = [facility], 1538) [address]57[address]: 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 ID = [id number] for ISABELA LE BASIC METABOLIC [id number] 12:56:00 Test Item Value Reference Range Interpretation [...] S NOT APPLICABLE FOR DIALYSIS PATIEN TS. Computer Installer ID - EMILIE LPOCT-GLUCOSE [id number] 12:30:00 Test Item Value Reference Range Interpretation Comments POC-GLUCOSE METER 109 mg/dL 70-110 : TESTED A T [facility] 6720 ([facility]) (test code = [facility] [employer]rike [facility], 1538) 74[address]: 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 ID = [id number] for ISABELA STREET RAD, CHEST, 1 VIEW, NON [id number] 09:49:00Reason for exam:->ETT, chest tubesShould this be [...] MDReport Verified Date/Time: 03/29/2019 09:49:18 Reading Location: [facility] C0[facility] Transitional Reading Room POCT-GLUCOSE [id number] 06:12:00 Test Item Value Reference Range Interpretation Comments POC-GLUCOSE METER 115 mg/dL 70-110 H : TESTED A T [facility] 6720 ([facility]) (test code = [facility] [employer] [facility], 1538) 158[address]: 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 ID = [id number] for VAL KULKARNI BASIC METABOLIC [id number] 04:51:00 Test Item Value Reference Range Interpretation [...] S NOT APPLICABLE FOR DIALYSIS PATIEN TS. Computer Installer ID - PIAYA LCBC W/PLT COUNT & AUTO [id number] 04:44:00 Test Item Value Reference Range Interpretation [...] 0-1 PERCENT (BEAKER) (test code = 2801) [id number] 04:43:00 Test Item Value Reference Range Interpretation Comments PHOSPHORUS (BEAKER) (test code = 4.4 mg/dL 2.3-4.7 604) Computer Installer ID - LCBECKY [id number] 04:43:00 Test Item Value Reference Range Interpretation Comments MAGNESIUM (BEAKER) (test code = 2.2 mg/dL 1.6-2.6 627) Computer Installer ID - LCBECKY [id number] 04:39:00 Test Item Value Reference Range Interpretation Comments PARTIAL THROMBOPLASTIN TIME 83.9 seconds 22.5-36.0 H (BEAKER) (test code = 760) POCT-GLUCOSE [id number] 00:34:00 Test Item Value Reference Range Interpretation Comments POC-GLUCOSE METER 112 mg/dL 70-110 H : TESTED A T [facility] 6720 (BEAKER) (test code = [facility]LA [address], 1538) [address]: 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 ID = [id number] for VAL KULKARNI VANCOMYCIN LEVEL, [id number] 23:23:00 Test Item Value Reference Range Interpretation Comments VANCOMYCIN TROUGH (BEAKER) (test 17.0 ug/mL 10.0-20.0 code = 522) Computer Installer ID - [id number] 21:15:00 Test Item Value Reference Range Interpretation Comments PARTIAL THROMBOPLASTIN TIME 84.7 seconds 22.5-36.0 H (BEAKER) (test code = 760) POCT-GLUCOSE [id number] 17:46:00 Test Item Value Reference Range Interpretation Comments POC-GLUCOSE METER 110 mg/dL 70-110 : TESTED A T [facility] 6720 (BEAKER) (test code = [facility]DA [facility] [facility], 1538) 74429: 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 ID = [id number] for DANIEL NOLAND SLIME BASIC METABOLIC [id number] 16:41:00 Test Item Value Reference Range Interpretation [...] S NOT APPLICABLE FOR DIALYSIS PATIEN TS. Computer Installer ID - AAHAMIDANG, DRAINAGE TUBE CHANGE (GASTRO, [...] blood loss: < 5 cc. Specimen: None. hydrogen braze furnace operator: Nato Dang MD. Ingot Car Operator: Lauren. Fluoroscopy Time: 0.5 min.Reference Air Kerma [...] removed over the guidewire. A new 8.5 Estonian Cook multipurpose drainage catheter was advanced over [...] MDReport Verified Date/Time: 03/28/2019 14:57:26 Reading Location: [place] [id number] Angio Body Reading Room IR Drainage Catheter [id number] 14:57:00Interface, External Ris In - 03/28/2019 2:59 PM CSTFINAL REPORT Fluoroscopic guided replacement of a right chest tube. History: Patient's right chest tube has been retracted and is poorly draining.. Modality: Fluoroscopy Sedation: None Anesthesia: Two percent Lidocaine without epinephrine. Approach: Existing right chest tube Estimated blood loss: < 5 cc. Specimen: None. hydrogen braze furnace operator: Nato Dang MD. Ingot Car Operator: Lauren. Fluoroscopy Time: 0.5 min.Reference Air Kerma [...] removed over the guidewire. A new 8.5 Estonian Cook multipurpose drainage catheter wasadvanced over the [...] MDReport Verified Date/Time: 03/28/2019 14:57:26 Reading Location: [place] [address] Angio Body Reading Room [facility] [id number] 14:39:00 Test Item Value Reference Range Interpretation Comments PARTIAL THROMBOPLASTIN TIME 77.6 seconds 22.5-36.0 H (YELITZA) (test code = 760) POCT-GLUCOSE [id number] 13:05:00 Test Item Value Reference Range Interpretation Comments POC-GLUCOSE METER 96 mg/dL 70-110 : TESTED A T [facility] 6720 (YELITZA) (test code = ILDA [facility] [facility], 1538) [address]: 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 ID = [id number] for SLIME RAMAN RAD, CHEST, 1 VIEW, NON [id number] 06:59:00Reason for exam:->ETT, chest tubesShould this be [...] MDReport Verified Date/Time: 03/28/2019 06:59:41 Reading Location: [facility] Radiology Reading Room [id number] 06:54:00 Test Item Value Reference Range Interpretation Comments PARTIAL THROMBOPLASTIN TIME 36.3 seconds 22.5-36.0 H (BEAKER) (test code = 760) [id number] 05:09:00 Test Item Value Reference Range Interpretation Comments PARTIAL THROMBOPLASTIN TIME 111.4 seconds 22.5-36.0 H (BEAKER) (test code = 760) [id number] 05:05:00 Test Item Value Reference Range Interpretation Comments PHOSPHORUS (BEAKER) (test code = 5.0 mg/dL 2.3-4.7 H 604) Computer Installer ID - SANDRA [id number] 05:05:00 Test Item Value Reference Range Interpretation Comments MAGNESIUM (BEAKER) (test code = 2.2 mg/dL 1.6-2.6 627) Computer Installer ID - SANDRA WBASIC METABOLIC [id number] 05:05:00 Test Item Value Reference Range Interpretation [...] S NOT APPLICABLE FOR DIALYSIS PATIEN TS. Computer Installer ID - SANDRA WCBC W/PLT COUNT & AUTO [id number] 05:01:00 Test Item Value Reference Range Interpretation [...] (BEAKER) (test code = 2801) pH, body [id number] 03:46:00 Test Item Value Reference Range Interpretation Comments pH, Body Fluid 7.5 (test code = 2748-2) PH FLUID TYPE Body fluid Reference (test code = range:Reference 31019-5) ranges have not been established on thistype of flu id for this test. DORI (test code Performing Lab = DORI) *[facility], [address] [place] [address] [place] [address] Pearl Kent MD, PhD [facility]PO[facility] [id number] 00:25:00 Test Item Value Reference Range Interpretation Comments POC-GLUCOSE METER 114 mg/dL 70-110 H : TESTED A T [facility] 6720 (BEAKER) (test code = [facility], 1538) [address]: 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 ID = [id number] for EDISON BELTRAN POCT-GLUCOSE [id number] 17:52:00 Test Item Value Reference Range Interpretation Comments POC-GLUCOSE METER 111 mg/dL 70-110 H : TESTED A T [facility] 6720 (BEAKER) (test code = [facility], 1538) [address]: 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 ID = [id number] for [place] LLIAMS, ELADIA BASIC METABOLIC [id number] 17:02:00 Test Item Value Reference Range Interpretation [...] S NOT APPLICABLE FOR DIALYSIS PATIEN TS. Computer Installer ID - [id number] 12:34:00 Test Item Value Reference Range Interpretation Comments PARTIAL THROMBOPLASTIN TIME 82.8 seconds 22.5-36.0 H (BEAKER) (test code = 760) Sputum Culture + Gram [id number] 11:50:00 Test Item Value Reference Range Interpretation Comments Result (test code = See comment 6463-4) Gram Stain Result No organisms seen (test code = 1123) DORI (test code = 2+ YeastNo Normal DORI) respiratory rigo present [facility] [id number] 11:50:00 Test Item Value Reference Range Interpretation Comments CULTURE (BEAKER) (test See comment code = 1095) GRAM STAIN RESULT 4+ WBCs (BEAKER) (test code = 1123) GRAM STAIN RESULT 0-5 epithelial cells (BEAKER) (test code = 647133) GRAM STAIN RESULT No organisms seen (BEAKER) (test code = 875006) 2+ YeastNo Normal respiratory rigo presentPOCT-GLUCOSE [id number] 11:42:00 Test Item Value Reference Range Interpretation Comments POC-GLUCOSE METER 117 mg/dL 70-110 H : Pt. refu sed rpt tst: (BEAKER) (test code = TESTED AT [facility] 0824 0132) [place], [address]: 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 ID = [id number] for ELADIA WHELAN BLOOD [id number] 11:00:00 Test Item Value Reference Range Interpretation Comments CULTURE (BEAKER) (test No growth in 5 days code = 1095) BLOOD [id number] 11:00:00 Test Item Value Reference Range Interpretation Comments CULTURE (BEAKER) (test No growth in 5 days code = 1095) Adenosine Deaminase, [id number] 10:22:00 Test Item Value Reference Interpretation Comments [...] of thistest have b een [place] This test shouldnot be us ed for diagnosis witho ut confirmation by other medically estab lished means. DORI (test code = Performing Lab DORI) 15 [employer] [facility], [address] [place] [address] [place] [address] Pearl Kent MD, PhD Lab Interpretation Abnormal (test code = 97813-9) [facility]RAD[facility], 1 VIEW, NON [id number] 06:18:00 Reason for exam:->ETT, chest tubesShould this be performed at the bedside?->YesFINAL REPORT RAD, CHEST, 1 VIEW, NON DEPT INDICATION: ETT, chest tubes COMPARISON: Prior day's exam FINDINGS: Portable frontal view of the chest. IMPRESSION: Support Lines: Stable. Lungs and pleura: Unchanged bilateral small pleural effusions and scattered interstitial opacities. No pneumothorax.Heart and mediastinum: Stable contours. Stable surgical changes.Additional findings: None. Signed: Rebel, Tomasa MDReport Verified Date/Time: 03/27/2019 06:18:48 [id number] 06:00:00 Test Item Value Reference Range Interpretation Comments PARTIAL THROMBOPLASTIN TIME 82.3 seconds 22.5-36.0 H (BEAKER) (test code = 760) BASIC METABOLIC [id number] 05:35:00 Test Item Value Reference Range Interpretation [...] S NOT APPLICABLE FOR DIALYSIS PATIEN TS. Computer Installer ID - ELISSA MSpecimen slightly [id number] 05:33:00 Test Item Value Reference Range Interpretation Comments PHOSPHORUS (BEAKER) (test code = 4.7 mg/dL 2.3-4.7 604) Computer Installer ID - ELISSA [id number] 05:33:00 Test Item Value Reference Range Interpretation Comments MAGNESIUM (BEAKER) (test code = 2.2 mg/dL 1.6-2.6 627) Computer Installer ID - ELISSA MCBC W/PLT COUNT & AUTO [id number] 05:19:00 Test Item Value Reference Range Interpretation [...] PERCENT (BEAKER) (test code = 2801) POCT-GLUCOSE [id number] 05:17:00 Test Item Value Reference Range Interpretation Comments POC-GLUCOSE METER 118 mg/dL 70-110 H : TESTED A T [facility] 6720 (BEAKER) (test code = [facility] Enrike [facility], 1538) [address]: 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 ID = [id number] for NEDA GARLAND [id number] 20:41:00 Test Item Value Reference Range Interpretation Comments PARTIAL THROMBOPLASTIN TIME 36.4 seconds 22.5-36.0 H (BEAKER) (test code = 760) Glucose Pleural [id number] 19:27:00 Test Item Value Reference Range Interpretation Comments Glucose, 29 mg/dL SAMPLE SLIGHTLY Pleural Fluid LIPEMIC.SAMPLE (test code = MODERATELY 2346-5) HEMOLYZED. Refe rence range approxima abundio that found in s joseph. DORI (test code Performing Lab = DORI) EZ [facility] [address] [place] [address] Anne Luna MD, PhD, SOTO [facility] HospitalPOCT-GLUCOSE [id number] 18:31:00 Test Item Value Reference Range Interpretation Comments POC-GLUCOSE METER 97 mg/dL 70-110 : TESTED A T [facility] 6720 (BEAKER) (test code = [facility] Enrike [facility], 1538) [address]: 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 ID = [id number] for ISABELA LE BASIC METABOLIC [id number] 18:22:00 Test Item Value Reference Range Interpretation [...] I S NOT APPLICABLE FOR DIALYSIS PATIEN RONA. Computer Installer ID - BSSpecimen slightly ictericUrine [id number] 14:01:00 Test Item Value Reference Range Interpretation Comments Result (test code = 6463-4) No growth [facility] CenterAPTT2020-01-29 13:23:00 Test Item Value Reference Range Interpretation Comments PARTIAL THROMBOPLASTIN TIME 40.6 seconds 22.5-36.0 H (BEAKER) (test code = 760) POCT-GLUCOSE [id number] 12:06:00 Test Item Value Reference Range Interpretation Comments POC-GLUCOSE METER 113 mg/dL 70-110 H : TESTED A T [facility] 6720 (YELITZA) (test code = ILDA Calvert [facility], 1538) [address]: 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 ID = [id number] for ISABELA STREET [id number] 10:59:00 Test Item Value Reference Range Interpretation Comments PARTIAL THROMBOPLASTIN TIME 61.4 seconds 22.5-36.0 H (MACYAKER) (test code = 760) 2D Echo W/Doppler(CW/PW/Color)2019-03-26 08:34:44Ejection FractionSLEH ECHO HEARTLAB MKCKESSON CPACSInterface, External Ris In - 03/26/2019 8:35 AM C STTransthoracic Echocardiography Report (TTE) Demographics Patient Name JOHN DELUNA Date of Study 03/25/2019 Gender Male Visit Number [id number] Race Unknown Room Number 7102 Number Date of 1955 Referring Physician Jerald Christensen Age 63 year(s) Public Relations Abimael Jimenez Interpreting Carlos Alberto Estrada MD [...] l/min LVOT CI: 2.95 l/min/m^2 Tricuspid ValveCHI Banner Lassen Medical CenterPOCT-GLUCOSE METER 2019-03-26 06:53:00 Test Item Value Reference Range Interpretation Comments POC-GLUCOSE METER 112 mg/dL 70-110 H : [facility] (test code = [place], 1538) [address]: 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 ID = [id number] for [place] RRDON, FAUSTO RAD, CHEST, 1 VIEW, NON [id number] 05:01:00Reason for exam:->intubated w/ empyemaShould this be [...] Signed: Nakia Goldstein MDReportVerified Date/Time: 03/26/2019 05:01:34 [id number] 03:48:00 Test Item Value Reference Range Interpretation Comments PHOSPHORUS (BEAKER) (test code = 3.9 mg/dL 2.3-4.7 604) Computer Installer ID - ELISSA [id number] 03:48:00 Test Item Value Reference Range Interpretation Comments MAGNESIUM (BEAKER) (test code = 2.1 mg/dL 1.6-2.6 627) Computer Installer ID - ELISSA MBASIC METABOLIC [id number] 03:48:00 Test Item Value Reference Range Interpretation [...] S NOT APPLICABLE FOR DIALYSIS PATIEN TS. Computer Installer ID - ELISSA MSpecimen slightly [id number] 03:23:00 Test Item Value Reference Range Interpretation Comments PARTIAL THROMBOPLASTIN TIME 98.7 seconds 22.5-36.0 H (BEAKER) (test code = 760) BLOOD GAS, [id number] 03:22:00 Test Item Value Reference Range Interpretation [...] 30.0 % CBC W/PLT COUNT & AUTO [id number] 03:14:00 Test Item Value Reference Range Interpretation [...] PERCENT (BEAKER) (test code = 2801) POCT-GLUCOSE [id number] 00:13:00 Test Item Value Reference Range Interpretation Comments POC-GLUCOSE METER 115 mg/dL 70-110 H : TESTED A T [facility] 6720 (BEAKER) (test code = ILDA Calvert [facility], 1538) [address]: 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 ID = [id number] for Barbara Grigsby BASIC METABOLIC [id number] 20:31:00 Test Item Value Reference Range Interpretation [...] S NOT APPLICABLE FOR DIALYSIS PATIEN TS. Computer Installer ID - BSSpecimen slightly ictericTriglycerides, Pleural [id number] 18:39:00 Test Item Value Reference Range Interpretation Comments TRIGLYCERIDES, 35 mg/dL See Note: Reference PLEURAL FLUID Range:CHYLOUS: (test code = >110NONCHYLOUS: 9619-8) <50SAMPLE SLIGH TLY LIPEMIC.SAMPLE MODERATELY HEMOLYZED. DORI (test code = Performing Lab DORI) EZ [facility] [address] [place] [address] Anne Luna MD, PhD, SOTO [facility] HospitalCT, CHEST, WITHOUT [id number] 18:26:00FINAL REPORT CT of the Chest, abdomen [...] Foss Verified Date/Time: 03/25/2019 18:26:29 Reading Location: [facility] C013Y CT Body Reading [facility], [id number] 18:26:00FINAL REPORT CT of the Chest, abdomen [...] MDReport Verified Date/Time: 03/25/2019 18:26:29 Reading Location: [facility] C013Y CT Body Reading Room CT abdomen/pelvis without iv [id number] 18:26:00Interface, External Ris In - 03/25/2019 6:[address] of the Chest, abdomen and pelvis dated 03/25/2019 COMPARISON: March 20, 2019 Clinical information: Pleural effusion Comment: Axial images of the chest, abdomen, and pelvis were obtained from thoracic inlet tothe pubic symphysis without GI or intravenous contrast. This exam was performed according to ourmipartmental dose-optimization program, which includes automated exposure control, [...] MDReport Verified Date/Time: 03/25/2019 18:26:29 Reading Location: [facility] B1 C013Y CT Body Reading Room Electronically signed by: TOMASA FOSS M.D.on 03/25/2019 06:26 [facility] [id number] 18:26:00Interface, External Ris In - 03/25/2019 6:29 [...] MDReport Verified Date/Time: 03/25/2019 18:26:29 Reading Location: [facility] B1 C013Y CT Body Reading Room Electronically signed by: TOMASA FOSS M.D.on 03/25/2019 06:26 [facility]PO[facility] [id number] 18:22:00 Test Item Value Reference Range Interpretation Comments POC-GLUCOSE METER 95 mg/dL 70-110 : TESTED A T [facility] 6720 (BEAKER) (test code = ILDA Calvret [facility], 1538) [address]: 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 ID = [id number] for SAND ERS, ISABELA Lactate Dehydrogenase (LD), Pleural [id number] 18:06:00 Test Item Value Reference Interpretation Comments Range Lactate >1300 See Note: U/L Reference Dehydrogenase (LD), Range:TR ANSUDATE: Pleural Fluid (test <113EXUD ATE: code = 33907-4) >113SAMPLE S LIGHTLY LIPEMIC.SAMPLE MODERATELY HEMOLYZED.This fluid sample was rece ived hemolyzed in e laboratory. Jeana n minimalhemolysi s causes signific ant increase in LD due to high levels of this enzymein red ce lls. Please interpre t result with caution.RESULTS CONFIRMED BY RE PEAT ANALYSIS. DORI (test code = Performing Lab DORI) EZ [facility] [address] [place] [address] Anne Luna MD, PhD, SOTO [facility] HospitalRAD, CHEST, 1 VIEW, NON [id number] 16:20:00 Reason for exam:->Central Line PlacementShould this [...] MDReport Verified Date/Time: 03/25/2019 16:20:19 Reading Location: [facility] B1 C013W Consult Reading Room [id number] 15:56:00 Test Item Value Reference Range Interpretation Comments PARTIAL THROMBOPLASTIN TIME 83.0 seconds 22.5-36.0 H (BEAKER) (test code = 760) BRONCHIAL CULTURE + GRAM [id number] 12:23:00 Test Item Value Reference Range Interpretation Comments CULTURE (BEAKER) See comment (test code = 1095) GRAM STAIN RESULT 4+ WBCs (BEAKER) (test code = 1123) GRAM STAIN RESULT <1+ yeast with (BEAKER) (test code pseudohyphae = 681977) 2+ Yeast with feetNo Normal respiratory rigo [...] S NOT APPLICABLE FOR DIALYSIS PATIEN TS. Computer Installer ID - LENNY MCGREGOROOD GAS, [id number] 12:00:00 Test Item Value Reference Range Interpretation [...] (test code = 1819) 30.0 % POCT-GLUCOSE [id number] 11:51:00 Test Item Value Reference Range Interpretation Comments POC-GLUCOSE METER 114 mg/dL 70-110 H : TESTED A T [facility] 6720 (BEAKER) (test code = [place] [address] [place], 1538) [address]: 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 ID = [id number] for SA ELADIA, ISABELA BODY FLUID CULTURE + GRAM [id number] 10:54:00 Test Item Value Reference Range Interpretation Comments CULTURE (BEAKER) (test code No growth = 1095) GRAM STAIN RESULT (BEAKER) 2+ WBCs (test code = 1123) GRAM STAIN RESULT (BEAKER) No organisms seen (test code = 58231) BODY FLUID CULTURE + GRAM [id number] 10:54:00 Test Item Value Reference Range Interpretation Comments CULTURE (BEAKER) (test code No growth = 1095) GRAM STAIN RESULT (BEAKER) 1+ WBCs (test code = 1123) GRAM STAIN RESULT (BEAKER) No organisms seen (test code = 01765) Urinalysis w/Microscopic + Reflex to [id number] 10:03:00 Test Item Value Reference Range Interpretation Comments Color, UA (test code = Yellow 5778-6) Clarity, UA (test code = Hazy 5767-9) Specific [place], UA (test 1.018 1.001-1.035 code = 5811-5) pH, UA (test code = 5.5 5.0-8.0 5803-2) Protein, UA (test code = 50 mg/dL Negative A 00492-0) Glucose, UA (test code = Negative Negative 365) Ketones, UA (test code = Negative Negative 2514-8) Bilirubin, UA (test code = Negative Negative 21047-8) Blood, UA (test code = Small Negative A 04246-7) Nitrite, UA (test code = Negative Negative 5802-4) Leukocytes, UA (test code Large Negative A = 5799-2) Urobilinogen, UA (test 6.0 mg/dL 0.2-1 H code = 86101-5) RBC, UA (test code = <1 /HPF 45547-4) WBC, UA (test code = 54 /HPF 5821-4) Bacteria, UA (test code = Few 03261-8) Mucus (test code = 8247-9) Few Squam Epithel, UA (test <1 /HPF code = 97046-0) Hyaline Casts, UA (test 1 /LPF code = 08718-2) Specimen Source (test code = 2795) DORI (test code = DORI) Computer Installer ID - [auto]Computer Installer ID - ramya Lab Interpretation (test Abnormal code = 31319-5) [facility]UR[facility] W/ REFLEX URINE [id number] 10:03:00 Test Item Value Reference Range Interpretation [...] /LPF 514) SOURCE(BEAKER) (test code = 2795) Computer Installer ID - [auto]Computer Installer ID - [id number] 09:58:00 Test Item Value Reference Range Interpretation Comments PARTIAL THROMBOPLASTIN TIME 83.1 seconds 22.5-36.0 H (BEAKER) (test code = 760) BLOOD [id number] 07:00:00 Test Item Value Reference Range Interpretation Comments CULTURE (BEAKER) (test No growth in 5 days code = 1095) RAD, CHEST, 1 VIEW, NON [id number] 06:48:00Reason for exam:->intubated w/ empyemaShould this be [...] Luque MDReport Verified Date/Time: 03/25/2019 06:48:46 POCT-GLUCOSE [id number] 06:17:00 Test Item Value Reference Range Interpretation Comments POC-GLUCOSE METER 101 mg/dL 70-110 : TESTED A T [facility] 6720 (BEAKER) (test code [place], = 1538) [address]: 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 ID = [id number] for JACKSON BOLDEN CBC W/PLT COUNT & AUTO [id number] 04:23:00 Test Item Value Reference Range Interpretation [...] PERCENT (BEAKER) (test code = 2801) BLOOD [id number] 04:02:00 Test Item Value Reference Range Interpretation Comments CULTURE (BEAKER) (test No growth in 5 days code = 1095) BASIC METABOLIC [id number] 03:59:00 Test Item Value Reference Range Interpretation [...] S NOT APPLICABLE FOR DIALYSIS PATIEN TS. Computer Installer ID - ELISSA MSpecimen slightly [id number] 03:57:00 Test Item Value Reference Range Interpretation Comments PHOSPHORUS (BEAKER) (test code = 2.8 mg/dL 2.3-4.7 604) Computer Installer ID - ELISSA [id number] 03:57:00 Test Item Value Reference Range Interpretation Comments MAGNESIUM (BEAKER) (test code = 2.0 mg/dL 1.6-2.6 627) Computer Installer ID - ELISSA [id number] 03:30:00 Test Item Value Reference Range Interpretation Comments PARTIAL THROMBOPLASTIN TIME 63.6 seconds 22.5-36.0 H (BEAKER) (test code = 760) POCT-GLUCOSE [id number] 00:15:00 Test Item Value Reference Range Interpretation Comments POC-GLUCOSE METER 110 mg/dL 70-110 : TESTED A T [facility] 6720 (BEAKER) (test code [facility], = 1538) [address]: 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 ID = [id number] for SUGU , SHEENAMOL [id number] 21:11:00 Test Item Value Reference Range Interpretation Comments PARTIAL THROMBOPLASTIN TIME 68.8 seconds 22.5-36.0 H (BEAKER) (test code = 760) BASIC METABOLIC [id number] 21:09:00 Test Item Value Reference Range Interpretation [...] S NOT APPLICABLE FOR DIALYSIS PATIEN TS. Computer Installer ID - JOSE Castellano slightly ictericRAD, ABDOMEN/KUB, 1 VIEW AP 2019-03-24 19:29:00Reason for exam:->NGT fell outAddendum BeginsREPORT STATUS:A Two views were obtained. Signed: Edwin Salazar MDReport Verified Date/Time: 03/24/2019 19:29:02 Reading Location: [address] Consult Reading RoomAddendum EndsFINAL REPORT Abdomen. HISTORY: Nasogastric tube fell out. COMPARISON STUDY: None available FINDINGS: A single supine view the abdomen demonstrates a nasogastric tube in place, the tip projecting over the distal stomach. No dilated loops of bowel are seen. Degenerative changes are noted. This film is insensitive for the detection of free air. Signed: Edwin Salazar Verified Date/Time: 03/24/2019 19:24:17 Reading Location: [address] Consult Reading Room POCT- GLUCOSE [id number] 18:19:00 Test Item Value Reference Range Interpretation Comments POC-GLUCOSE METER 97 mg/dL 70-110 : TESTED A T [facility] 6720 ([facility]) (test code = [address], 1538) [address]: 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 ID = [id number] for SAND ERS, ISABELA RAD, CHEST, 1 VIEW, NON [id number] 18:11:00Reason for exam:->Chest tube placement, possible dislodgementShould [...] No other significant change. Signed: Edwin Salazar Verified Date/Time: 03/24/2019 18:11:57 Reading Location: [address] Consult Reading Room BODY FLUID CULTURE + GRAM [id number] 16:09:00 Test Item Value Reference Range Interpretation Comments CULTURE (BEAKER) (test No growth code = 1095) GRAM STAIN RESULT 1+ White blood cells (BEAKER) (test code = seen 1123) GRAM STAIN RESULT No organisms seen (BEAKER) (test code = 27118) BRONCHIAL CULTURE + GRAM [id number] 14:05:00 Test Item Value Reference Range Interpretation Comments CULTURE (BEAKER) (test code No growth = 1095) GRAM STAIN RESULT (BEAKER) <1+ WBCs (test code = 1123) GRAM STAIN RESULT (BEAKER) No organisms seen (test code = 59253) BASIC METABOLIC [id number] 13:09:00 Test Item Value Reference Range Interpretation [...] S NOT APPLICABLE FOR DIALYSIS PATIEN TS. Computer Installer ID - SONIA [id number] 13:04:00 Test Item Value Reference Range Interpretation Comments PARTIAL THROMBOPLASTIN TIME 58.9 seconds 22.5-36.0 H (BEAKER) (test code = 760) EEG EXTENDED MONITORING, 40-60 [id number] 12:32:00For STAT EEG- after 5 PM weekdays, weekends and holidays, page the on-call EEG TechReason for exam:-& gt;Concern for Subclinical StatusShould this be performed at the bedside?->YesDate(s) of EE03/24/2019 DATE OF REPORT: 03/24/2019ACC: [id number] Number: [id number] Location: Inpatient ICUStart time: 03/24/2019 10:42Stop time: 03/24/2019 11:23ICD-10: R56.9 CPT Code: 30860 HISTORY: 63 y.o. male with hypertension, diastolic heart failure, chronic kidney disease who was transferred to [facility] for effusions and remains altered with concern [...] inflammation, aftermath of earlier seizure activity, other DIESEL [employer]TER MECHANIC insult, or toxic-metabolic derangements. An EEG without epileptiform discharges does not exclude the possibility of epilepsy. If the clinical suspicion of epilepsy remains, consider additional EEG recordings. Nando Metz MDNeurophysiology Fellow Taya Martinez M.D., FACNS, FAAN, FAESProfessor of Neurology, [facility] Community HospitalDirector, [facility] Comprehensive Epilepsy CenterJohn Saab Neurophysiology Lab at [place], [place] EXTENDED MONITORING 40 - 60 [id number] 12:32:00Interface, External Ris In - 03/24/2019 12:32 PM CSTDate(s) of EE03/24/2019 DATE OF REPORT: 03/24/2019ACC: [id number] Number: [id number] Location: Inpatient ICUStart time: 03/24/2019 10:42Stoptime: 03/24/2019 11:23ICD-10: R56.9 CPT Code: 80644 HISTORY: 63 y.o. male with hypertension, diastolic heart failure, chronic kidney disease who was transferred to [facility] for effusions and remains altered with concern [...] inflammation, aftermath of earlier seizure activity, other DIESEL FITTER MECHANIC insult, or toxic-metabolic derangements. An EEG without epileptiform discharges does not exclude the possibility of epilepsy. If the clinical suspicion of epilepsy remains, consider additional EEG recordings. Nando Metz MDNeurophysiology Fellow Taya Martinez M.D., FARIDA, FAAN, FAESProfessor of Neurology, [facility] Metro[facility] SystemDirector, [facility] Epilepsy CenterJohn Saab Neurophysiology Lab at [place], [place] [facility] HospitalPOCT-GLUCOSE [id number] 12:29:00 Test Item Value Reference Range Interpretation Comments POC-GLUCOSE METER 109 mg/dL 70-110 : TESTED A T [facility] 6720 (BEAKER) (test code = [facility], 153) [address]: 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 ID = [id number] for SA NDERS, ISABELA BLOOD GAS, [id number] 12:11:00 Test Item Value Reference Range Interpretation [...] (test code = 1819) 30.0 % POCT-GLUCOSE [id number] 06:09:00 Test Item Value Reference Range Interpretation Comments POC-GLUCOSE METER 122 mg/dL 70-110 H : TESTED A T [facility] 6720 (BEAKER) (test code = [facility], 153) [address]: 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 ID = [id number] for DA EDISON FLYNN BLOOD GAS, [id number] 05:35:00 Test Item Value Reference Range Interpretation [...] (BEAKER) (test code = 1819) 30.0 % [id number] 05:09:00 Test Item Value Reference Range Interpretation Comments PHOSPHORUS (BEAKER) (test code = 3.2 mg/dL 2.3-4.7 604) Computer Installer ID - SANDRA [id number] 05:09:00 Test Item Value Reference Range Interpretation Comments MAGNESIUM (BEAKER) (test code = 1.9 mg/dL 1.6-2.6 627) Computer Installer ID - SANDRA WBASIC METABOLIC [id number] 05:09:00 Test Item Value Reference Range Interpretation [...] S NOT APPLICABLE FOR DIALYSIS PATIEN TS. Computer Installer ID - SANDRA WSpecimen slightly [id number] 04:59:00 Test Item Value Reference Range Interpretation Comments PARTIAL THROMBOPLASTIN TIME 61.1 seconds 22.5-36.0 H (BEAKER) (test code = 760) CBC W/PLT COUNT & AUTO [id number] 04:52:00 Test Item Value Reference Range Interpretation [...] = 2801) RAD, CHEST, 1 VIEW, NON [id number] 03:57:00Reason for exam:->intubated w/ empyemaShould this be [...] MDReport Verified Date/Time: 03/24/2019 03:57:49 VANCOMYCIN LEVEL, [id number] 01:53:00 Test Item Value Reference Range Interpretation Comments VANCOMYCIN TROUGH (BEAKER) (test 17.9 ug/mL 10.0-20.0 code = 522) Computer Installer ID - SANDRA WCT, BRAIN, WITHOUT [id number] 01:31:00FINAL REPORT EXAM: CT head without contrast. [...] Goldstein MDReport Verified Date/Time: 03/24/2019 01:31:09 POCT-GLUCOSE [id number] 00:17:00 Test Item Value Reference Range Interpretation Comments POC-GLUCOSE METER 122 mg/dL 70-110 H : TESTED A T [facility] 6720 (BEAKER) (test code = [facility], 1538) [address]: 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 ID = [id number] for EDISON BELTRAN BASIC METABOLIC [id number] 21:04:00 Test Item Value Reference Range Interpretation [...] S NOT APPLICABLE FOR DIALYSIS PATIEN TS. Computer Installer ID - Nicholas nolanericBASIC METABOLIC [id number] 16:30:00 Test Item Value Reference Range Interpretation [...] S NOT APPLICABLE FOR DIALYSIS PATIEN TS. Computer Installer ID - ALMA WHEPATIC FUNCTION [id number] 16:22:00 Test Item Value Reference Range Interpretation [...] (test code = 7 U/L 6-55 347) Computer Installer ID - ALMA [id number] 16:05:00 Test Item Value Reference Range Interpretation Comments AMMONIA (BEAKER) (test code = 348) 29 mol/L 18-72 Computer Installer ID - ALMA RAMIREZ [id number] 11:27:00 Test Item Value Reference Range Interpretation Comments CULTURE (BEAKER) (test code No MRSA isolated = 1095) Manual [id number] 10:18:00 Test Item Value Reference Range Interpretation [...] Ovalocytes (test code = 1+ few 477) [place] Cells (test code = 1+ few 474) Artifact (test code = Present 3432) Platelet Conc (test code Adequate = 3438) DORI (test code = DORI) Computer Installer ID - Mariela OverholtUser comments: Slide comments: Lab Interpretation (test Abnormal code = 09198-4) [facility] W/PLT COUNT & AUTO [id number] 10:18:00 Test Item Value Reference Range Interpretation [...] CONCENTRATION Adequate (CELLAVISION)(BEAKER) (test code = 3438) Computer Installer ID Sultana Sierra OverholtUser comments: Slide comments:SPIN/CONCENTRATION [id number] 10:03:00 Test Item Value Reference Range Interpretation Comments CONCENTRATION CHARGED (BEAKER) (test Done code = 2657) SPIN/CONCENTRATION [id number] 10:03:00 Test Item Value Reference Range Interpretation Comments CONCENTRATION CHARGED (BEAKER) (test Done code = 2657) SPIN/CONCENTRATION [id number] 10:03:00 Test Item Value Reference Range Interpretation Comments CONCENTRATION CHARGED (BEAKER) (test Done code = 2657) [id number] 07:00:00 Test Item Value Reference Range Interpretation Comments PARTIAL THROMBOPLASTIN TIME 70.1 seconds 22.5-36.0 H (BEAKER) (test code = 760) [id number] 06:46:00 Test Item Value Reference Range Interpretation Comments PHOSPHORUS (BEAKER) (test code = 2.8 mg/dL 2.3-4.7 604) Computer Installer ID Sultana FLORES [id number] 06:46:00 Test Item Value Reference Range Interpretation Comments MAGNESIUM (BEAKER) (test code = 1.9 mg/dL 1.6-2.6 627) Computer Installer ID Sultana FLORES WBASIC METABOLIC [id number] 06:46:00 Test Item Value Reference Range Interpretation [...] S NOT APPLICABLE FOR DIALYSIS PATIEN TS. Computer Installer ID - SANDRA SEWELLpecimecely slightly ictericBLOOD GAS, [id number] 06:18:00 Test Item Value Reference Range Interpretation [...] (test code = 1819) 30.0 % POCT-GLUCOSE [id number] 05:36:00 Test Item Value Reference Range Interpretation Comments POC-GLUCOSE METER 122 mg/dL 70-110 H : TESTED A T [facility] 6720 (BEAKER) (test code = [facility], 1538) [address]: 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 ID = [id number] for EDISON BELTRAN [id number] 00:47:00 Test Item Value Reference Range Interpretation Comments PARTIAL THROMBOPLASTIN TIME 62.9 seconds 22.5-36.0 H (BEAKER) (test code = 760) POCT-GLUCOSE [id number] 00:39:00 Test Item Value Reference Range Interpretation Comments POC-GLUCOSE METER 131 mg/dL 70-110 H : TESTED A T [facility] 6720 (BEAKER) (test code = [facility], 1538) [address]: 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 ID = [id number] for DA ASAEL FLYNNLYN BASIC METABOLIC [id number] 20:51:00 Test Item Value Reference Range Interpretation [...] S NOT APPLICABLE FOR DIALYSIS PATIEN TS. Computer Installer ID - ELISSA MSpecimen slightly ictericPT/[id number] 17:40:00 Test Item Value Reference Range Interpretation [...] mechanical heart valves.BODY FLUID CELL COUNT WITH [id number] 17:31:00 Test Item Value Reference Range Interpretation Comments APPEARANCE FLUID (BEAKER) (test Bloody Clear A code = 510) COLOR FLUID (BEAKER) (test code Red Colorless, Straw A = 511) RBC FLUID (BEAKER) (test code = 97343 /cu mm <=1 H 513) ADJUSTED WBC [...] = 2873) Body fluid cell count with [id number] 17:22:00 Test Item Value Reference Range Interpretation Comments Appearance (test code = 9335-1) Bloody Clear A Color (test code = 6824-7) Red Colorless, Straw A RBCs (test code = 43534-2) 13284 <=1 /cu mm H Adjusted WBC Count (test code = 88988 <=5 /cu mm H 80474-3) Lining Cells (test code = 13413-6) 364 <=1 /cu mm H % Segs (test code = 55679-4) 85 % % Lymphs (test code = 53755-6) 4 % % Monos (test code = 70398-5) 10 % % Eos (test code = 80616-4) 1 % % Baso (test code = 58864-2) 0 % Container Body Fluid (test code = EDTA Tube 2873) Lab Interpretation (test code = Abnormal 43456-2) [facility] WITH [id number] 17:22:00 Test Item Value Reference Range Interpretation Comments APPEARANCE FLUID (BEAKER) (test Bloody Clear A code = 510) COLOR FLUID (BEAKER) (test code Red Colorless, Straw A = 511) RBC FLUID (BEAKER) (test code = 23912 /cu mm <=1 H 513) ADJUSTED WBC FLUID (BEAKER) 01435 /cu mm <=5 H (test code = [...] code = 2873) SPUTUM CULTURE + GRAM [id number] 13:08:00 Test Item Value Reference Range Interpretation Comments CULTURE (BEAKER) (test See comment code = 1095) GRAM STAIN RESULT 2+ WBCs (BEAKER) (test code = 1123) GRAM STAIN RESULT 0-5 epithelial cells (BEAKER) (test code = 350725) GRAM STAIN RESULT No organisms seen (BEAKER) (test code = 800043) <1+ YeastNo Normal respiratory rigo presentBASIC METABOLIC [id number] 10:04:00 Test Item Value Reference Range Interpretation [...] S NOT APPLICABLE FOR DIALYSIS PATIEN TS. Computer Installer ID - ELISSA MSpecimen slightly [id number] 10:02:00 Test Item Value Reference Range Interpretation Comments PARTIAL THROMBOPLASTIN TIME 35.5 seconds 22.5-36.0 (BEAKER) (test code = 760) 6 hours after starting heparin infusion and as indicated per sliding scaleRAD, CHEST, 1 VIEW, NON [id number] 09:09:00Reason for exam:->intubated, bilateral chest tubesShould this [...] noted. IMPRESSION: No significant change. Signed: Edwin Salazareport Verified Date/Time: 03/22/2019 09:09:11 Reading Location: [address] Consult Reading Room POCT-GLUCOSE [id number] 06:06:00 Test Item Value Reference Range Interpretation Comments POC-GLUCOSE METER 105 mg/dL 70-110 : TESTED A T [facility] 6720 (BEAKER) (test code = [address], 1538) [address]: 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 ID = [id number] for EDISON BELTRAN VANCOMYCIN LEVEL, [id number] 02:59:00 Test Item Value Reference Range Interpretation Comments VANCOMYCIN TROUGH (BEAKER) (test 15.2 ug/mL 10.0-20.0 code = 522) Computer Installer ID - JOSE [id number] 02:42:00 Test Item Value Reference Range Interpretation Comments PHOSPHORUS (BEAKER) (test code = 3.8 mg/dL 2.3-4.7 604) Computer Installer ID - JOSE [id number] 02:42:00 Test Item Value Reference Range Interpretation Comments MAGNESIUM (BEAKER) (test code = 2.0 mg/dL 1.6-2.6 627) Computer Installer ID - JOSE EBASIC METABOLIC [id number] 02:42:00 Test Item Value Reference Range Interpretation [...] S NOT APPLICABLE FOR DIALYSIS PATIEN TS. Computer Installer ID - JOSE ESpecimen slightly ictericCBC W/PLT COUNT & AUTO [id number] 02:27:00 Test Item Value Reference Range Interpretation [...] PERCENT (BEAKER) (test code = 2801) POCT-GLUCOSE [id number] 00:42:00 Test Item Value Reference Range Interpretation Comments POC-GLUCOSE METER 95 mg/dL 70-110 : TESTED A T [facility] 6720 (BEAKER) (test code = [facility] [address], 1538) [address]: 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 ID = [id number] for OLENA Kunal EDISON BASIC METABOLIC [id number] 22:23:00 Test Item Value Reference Range Interpretation [...] S NOT APPLICABLE FOR DIALYSIS PATIEN TS. Computer Installer ID - BSSpecimen slightly ictericBODY FLUID CELL COUNT WITH DIFFERENTIAL 2019-03-21 20:29:00 Test Item Value Reference Range Interpretation Comments APPEARANCE FLUID (BEAKER) (test Hazy Clear A code = 510) COLOR FLUID (BEAKER) (test code Kierra Colorless, Straw A = 511) RBC FLUID (BEAKER) (test code = 04596 /cu mm <=1 H 513) ADJUSTED WBC [...] = 2873) U/S, DRAINAGE, CHEST, WITH TUBE [id number] 19:48:00Please place a 3-way stopcock on the [...] loss: < 5 cc. Specimen: Left bedside. hydrogen braze furnace operator: Nato Dang MD. Ingot Car Operator: None. Technique: Informed written consent was obtained. [...] space. Under direct ultrasound guidance an 8 Estonian skater pigtail drain was advanced into the [...] the patient's left chest and an 8 Estonian skater pigtail drain was placed in a similar fashion and connected to the atrium pleura. The patient tolerated the procedure well without evidence of immediate competition. Impression: Te chnically successful and uncomplicated placement of bilateral pigtail chest tubes under ultrasound guidance. Signed: Nato Dang MDRort Verified Date/Time: 03/21/2019 19:48:47 Reading Location: [place] [address] Angio Body Reading Room US drainage chest with tube [id number] 19:48:00 Interface, External Ris In - 03/21/2019 7:50 PM CSTFINAL REPORT Ultrasound guided insertion of bilateral pigtail chest tube catheters. History: Bilateral loculated pleural effusions. Modality: Ultrasound Sedation: None Anesthesia: Two percent Lidocaine without epinephrine. Approach: Bilateral mid axillary line Estimated blood loss: < 5 cc. Specimen: Left bedside. hydrogen braze furnace operator: Nato Dang MD. Ingot Car Operator: None. Technique: Informed written consent was obtained. [...] space. Under direct ultrasound guidance an 8 Estonian skater pigtail drain was advanced into the [...] the patient's left chest and an 8 Estonian skater pigtail drain was placed in a similar fashion and connected to the atrium pleura. The patient tolerated the procedure well without evidence of immediate competition. Impression: Technically successful and uncomplicated placementof bilateral pigtail chest tubes under ultrasound guidance. Signed: Rissa Dang MDReport Verified Date/Time: 03/21/2019 19:48:47 Reading Location: [facility] [address] [place] [address] Body Reading [facility] 2019-03-21 12:39:00 Test Item Value Reference Range Interpretation Comments Human Metapneumovirus Not detected Not detected, (test code = 96891-9) Equivocal Rhinovirus (test code = Not detected Not detected, 54076-5) Equivocal INFLUENZA A (NO Not detected Not detected, SUBTYPE) (test code = Equivocal 91595-5) Influenza A subtype H1 (test code = 91832-9) Influenza A Subtype H3 (test code = 71969-4) Influenza A Subtype H1-2009 (test code = 32264-5) Influenza B (test code Not detected Not detected, = 87243-5) Equivocal Respiratory Syncytial Not detected Not detected, Virus (test code = Equivocal 44102-9) Parainfluenza Virus 1 Not detected Not detected, (test code = 43289-2) Equivocal Parainfluenza Virus 2 Not detected Not detected, (test code = 02164-0) Equivocal Parainfluenza virus 3 Not detected Not detected, (test code = 62731-2) Equivocal Parainfluenza Virus 4 Not detected Not detected, (test code = 44818-1) Equivocal Adenovirus (test code = Not detected Not detected, 80551-5) Equivocal Coronavirus 229E (test Not detected Not detected, code = 11589-8) Equivocal Coronavirus HKU1 (test Not detected Not detected, code = 08303-2) Equivocal Coronavirus NL63 (test Not detected Not detected, code = 91476-4) Equivocal Coronavirus OC43 (test Not detected Not detected, code = 45800-7) Equivocal Bordetella Pertussis Not detected Not detected, (test code = 66047-2) Equivocal Chlamydophila Not detected Not detected, Pneumoniae (test code = Equivocal 59608-3) Mycoplasma Pneumoniae Not detected Not detected, (test code = 26854-9) Equivocal DORI (test code = DORI) Other viruses and bacteria not targeted by this PCR panel cannot be excluded; therefore clinical correlation and follow up of serology, culture results, and other molecular studies is required. The results are not intended to be used as the sole means for clinical diagnosis or patient management decisions. This sample was tested at the [facility] using the [employer] MediaArray Respiratory Panel. It is FDA cleared and has been verified and approved by the [facility] for clinical use on nasopharyngeal swab specimens. The performance of the FilmArray RP has not been established in individuals who received influenza vaccine. Recent administration of a nasal influenza vaccine may cause false positive results for Influenza A and/orInfluenza B. [facility] Center[facility] PAN[facility] [id number] 12:39:00 Test Item Value Reference Range Interpretation [...] decisions. This sample was tested at the [facility] using the [employer] MediaArray Respiratory Panel. It is FDA cleared and has been verified and approved by the [facility] for clinical use on nasopharyngeal swab specimens.The performance of the FilmArrayRP has not been established in individuals who received influenza vaccine. Recent administration ofa nasal influenza vaccine may cause false positive results for Influenza A and/orInfluenza B.Vitamin B12 and [id number] 10:20:00 Test Item Value Reference Range Interpretation Comments Vitamin B12 (test code = >2000 213-816 H 2132-9) Folate (test code = 17.3 ng/mL >=7.0 2284-8) DORI (test code = DORI) Computer Installer ID - ELISSA Lab Interpretation (test Abnormal code = 43163-9) [facility] HospitalVITAMIN B12 AND [id number] 10:20:00 Test Item Value Reference Range Interpretation Comments VITAMIN B12 (BEAKER) (test code = > pg/mL 213-816 H 774) FOLATE (BEAKER) (test code = 362) 17.3 ng/mL >=7.0 Computer Installer ID - ELISSA [id number] 10:16:00 Test Item Value Reference Range Interpretation Comments Ferritin (test code = 1076 ng/mL 5-275 H 2276-4) DORI (test code = DORI) Computer Installer ID - ELISSA Lab Interpretation (test Abnormal code = 57073-6) [facility] HospitalFERRITIN2020-01-24 10:16:00 Test Item Value Reference Range Interpretation Comments FERRITIN (BEAKER) (test code = 1076 ng/mL 5-275 H 361) Computer Installer ID - ELISSA MLactate dehydrogenase (LDH)2019-03-21 09:41:00 Test Item Value Reference Range Interpretation Comments LDH (test code = 2532-0) 300 U/L 125-220 H DORI (test code = DORI) Computer Installer ID - ELISSA Lab Interpretation (test Abnormal code = 74805-6) [facility] HospitalMAGNESIUM2020-01-24 09:41:00 Test Item Value Reference Range Interpretation Comments MAGNESIUM (BEAKER) (test code = 2.0 mg/dL 1.6-2.6 627) Computer Installer ID - ELISSA MBASIC METABOLIC [id number] 09:41:00 Test Item Value Reference Range Interpretation [...] S NOT APPLICABLE FOR DIALYSIS PATIEN TS. Computer Installer ID - ELISSA MSpecimen slightly ictericLACTATE DEHYDROGENASE (LDH) 2019-03-21 09:41:00 Test Item Value Reference Range Interpretation Comments LACTATE DEHYDROGENASE (BEAKER) (test 300 U/L 125-220 H code = 635) Computer Installer ID Sultana Newby, TIBC, % sat. (without ferritin)2019-03-21 09:39:00 Test Item Value Reference Range Interpretation Comments Iron (test code = 2498-4) 39.0 ug/dL 40-160 L TIBC (test code = 2500-7) 113 ug/dL 250-450 L Iron % Saturation (test 35 % 20-55 code = 2502-3) DORI (test code = DORI) Computer Installer ID Sultana ELISSA Vladislav Lab Interpretation (test Abnormal code = 89979-7) [facility] HospitalIRON, TIBC, % SAT. (WITHOUT FERRITIN)2019-03-21 09:39:00 Test Item Value Reference Range Interpretation Comments IRON (BEAKER) (test code = 547) 39.0 ug/dL 40.0-160.0 L TOTAL IRON BINDING CAPACITY 113 ug/dL 250-450 L (BEAKER) (test code = 769) IRON % SATURATION (2) (BEAKER) 35 % 20-55 (test code = 2590) Computer Installer ID - ELISSA Thuan Influenza A&B [id number] 09:34:00 Test Item Value Reference Range Interpretation Comments Rapid Influenza A Antigen Negative Negative, Inconclusive (test code = 70482-3) Rapid influenza B Antigen Negative Negative, Inconclusive (test code = 15228-7) Lab Interpretation (test code Normal = 11010-2) [facility] HospitalRAD INFLUENZA A&B [id number] 09:34:00 Test Item Value Reference Range Interpretation Comments RAPID INFLUENZA A AG (BEAKER) Negative Negative, Inconclusive (test code = 1622) RAPID INFLUENZA B AG (BEAKER) Negative Negative, Inconclusive (test code = 1623) Reticulocyte [id number] 09:20:00 Test Item Value Reference Range Interpretation Comments % Retic (test code = 1.9 % 0.5-1.8 H 26160-1) DORI (test code = DORI) Computer Installer ID - [id number] Lab Interpretation (test Abnormal code = 68843-9) [facility] HospitalRETICULOCYTE [id number] 09:20:00 Test Item Value Reference Range Interpretation Comments RETICULOCYTE COUNT PCT (BEAKER) (test 1.9 % 0.5-1.8 H code = 575) Computer Installer ID - [id number] W/PLT COUNT & AUTO [id number] 08:50:00 Test Item Value Reference Range Interpretation [...] CONCENTRATION Adequate (CELLAVISION)(BEAKER) (test code = 3438) Computer Installer ID - Mariela OverholtUser comments: Slide comments:POCT-GLUCOSE METER 2019-03-21 05:45:00 Test Item Value Reference Range Interpretation Comments POC-GLUCOSE METER 89 mg/dL 70-110 : TESTED A T [facility] 6720 (BEAKER) (test code = [place], 1538) [address]: 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 ID = [id number] for EDISON CALDWELL U/S, ABDOMINAL, [id number] 05:36:00Abdomen limited area? Add comment if clarification [...] Luque MD Report Verified Date/Time: 03/21/2019 05:36:04 [id number] 03:16:00 Test Item Value Reference Range Interpretation Comments MAGNESIUM (BEAKER) 2.1 mg/dL 1.6-2.6 Specimen slightly (test code = 627) hemolyzed Computer Installer ID - ELISSA [id number] 03:16:00 Test Item Value Reference Range Interpretation Comments PHOSPHORUS (BEAKER) 4.4 mg/dL 2.3-4.7 Specimen slightly (test code = 604) hemolyzed Computer Installer ID - ELISSA [id number] 02:32:00 Test Item Value Reference Range Interpretation Comments MAGNESIUM (BEAKER) 2.1 mg/dL 1.6-2.6 Specimen slightly (test code = 627) hemolyzed Computer Installer ID - ALEM BBASIC METABOLIC [id number] 01:30:00 Test Item Value Reference Range Interpretation [...] S NOT APPLICABLE FOR DIALYSIS PATIEN TS. Computer Installer ID - ALEM BSpecimen slightly ictericPOCT-GLUCOSE [id number] 23:58:00 Test Item Value Reference Range Interpretation Comments POC-GLUCOSE METER 114 mg/dL 70-110 H : TESTED A T [facility] (BEWevebob) (test [facility] = [facility] [employer] [facility], 1538) [address]: 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 ID = [id number] for EDISON BELTRAN [id number] 20:21:00 Test Item Value Reference Range Interpretation Comments MAGNESIUM (BEAKER) (test code = 2.1 mg/dL 1.6-2.6 627) Computer Installer ID - ALEM BPOCT-GLUCOSE [id number] 18:23:00 Test Item Value Reference Range Interpretation Comments POC-GLUCOSE METER 98 mg/dL 70-110 : TESTED A T [facility] 6720 (BEAKER) (test code = [facility] [employer] [facility], 1538) [address]: 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 ID = [id number] for SAND ERS, ISABELA BASIC METABOLIC [id number] 17:43:00 Test Item Value Reference Range Interpretation [...] S NOT APPLICABLE FOR DIALYSIS PATIEN TS. Computer Installer ID - AAHAMIDSpecimen slightly ictericBLOOD GAS, [id number] 16:45:00 Test Item Value Reference Range Interpretation [...] of Study 03/20/2019 Gender Male Visit Number [id number] Race Unknown Room Number 7102 Number Date of 1955 Referring Physician Age 63 year(s) Public Relations Gabrielle Gusman [facility] Interpreting Ziyad Bentley MD Physician Procedure Type [...] but severity assessmentis unreliable . Aortic Valve Loet-ec-bmksydwt AoV cusp calcification. Mild aortic stenosis. AoV [...] CO: 7.28 l/min LVOT CI: 3.5 l/min/m^2[facility] CenterCT, CHEST, WITHOUT [id number] 14:58:00FINAL REPORT CT of the Chest dated [...] [place] Verified Date/Time: 03/20/2019 14:58:27 Reading Location: [facility] B1 C013Y CT Body Reading Room VANCOMYCIN LEVEL, TROUGH 2019-03-20 13:36:00 Test Item Value Reference Range Interpretation Comments VANCOMYCIN TROUGH (BEAKER) (test 24.0 ug/mL 10.0-20.0 H code = 522) Computer Installer ID - BSPOCT-GLUCOSE [id number] 12:46:00 Test Item Value Reference Range Interpretation Comments POC-GLUCOSE METER 87 mg/dL 70-110 : TESTED A T [facility] 6720 (BEAKER) (test code = [place] [address], 1538) [address]: 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 ID = [id number] for ISABELA LE Hemoglobin [id number] 09:33:00 Test Item Value Reference Range Interpretation Comments Hemoglobin A1C (test code = 4548-4) 6.2 % 4.3-6.1 H Lab Interpretation (test code = Abnormal 79942-6) [facility] HospitalHEMOGLOBIN [id number] 09:33:00 Test Item Value Reference Range Interpretation Comments HEMOGLOBIN A1C (BEAKER) (test code = 6.2 % 4.3-6.1 H 368) Osmolality, [id number] 07:32:00 Test Item Value Reference Range Interpretation Comments Osmolality, Ur (test code = 2695-5) 540 40-1,400 mOsm/kg Lab Interpretation (test code = Normal 87963-5) [facility] HospitalOSMOLALITY, [id number] 07:32:00 Test Item Value Reference Range Interpretation Comments OSMOLALITY URINE (BEAKER) (test 540 mOsm/kg 40-1,400 code = 614) ABORH, [id number] 06:44:00 Test Item Value Reference Range Interpretation Comments ABO Grouping (test code = 2588) A Rh Factor (test code = 2589) NEG [facility] HospitalTROPONIN [id number] 06:34:00 Test Item Value Reference Range Interpretation [...] failure, acidosis, acute neurological disease, and persistent tachyarrhythmia.Computer Installer ID - SANDRA WLACTIC ACID, VENOUS 2019-03-20 06:14:00 Test Item Value Reference Range Interpretation Comments LACTATE BLOOD VENOUS (2) (BEAKER) 2.0 mmol/L 0.5-2.2 (test code = 2872) Computer Installer ID - SANDRA SEWELLpecimen slightly ictericPOCT-GLUCOSE [id number] 05:56:00 Test Item Value Reference Range Interpretation Comments POC-GLUCOSE METER 86 mg/dL 70-110 : TESTED A T [facility] 6720 (BEAKER) (test code = [place] [address], 1538) [address]: 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 ID = [id number] for CHARLEEN OLIVER CBC W/PLT COUNT & AUTO [id number] 05:35:00 Test Item Value Reference Range Interpretation [...] code = 2801) URINALYSIS W/ REFLEX URINE [id number] 04:38:00 Test Item Value Reference Range Interpretation [...] = 516) SOURCE(BEAKER) (test code = 2795) Computer Installer ID - [auto]Computer Installer ID - techRAD, CHEST, 1 VIEW, NON [id number] 04:29:00Reason for exam:->pneumonia, COPD exac, CHF exacShould [...] changes. There is no pneumothorax. Signed: Nakia Goldsteinort Verified Date/Time: 03/20/2019 04:29:54 BLOOD GAS, [id number] 04:12:00 Test Item Value Reference Range Interpretation [...] = 1819) 30.0 % TSH/Free T4 If [id number] 04:07:00 Test Item Value Reference Range Interpretation Comments TSH (test code = 78392-7) 3.06 0.35- 4.94 uIU/mL DORI (test code = DORI) Computer Installer ID - BS Lab Interpretation (test Normal code = 29041-9) [facility] HospitalTSH/FREE T4 IF [id number] 04:07:00 Test Item Value Reference Range Interpretation Comments THYROID STIMULATING HORMONE 3.06 uIU/mL 0.35-4.94 (BEAKER) (test code = 772) Computer Installer ID - BSTROPONIN [id number] 03:57:00 Test Item Value Reference Range Interpretation [...] failure, acidosis, acute neurological disease, and persistent tachyarrhythmia.Computer Installer ID - SANDRA WB-TYPE NATRIURETIC FACTOR (BNP)2019-03-20 03:53:00 Test Item Value Reference Range Interpretation Comments B-TYPE NATRIURETIC PEPTIDE (BEAKER) 907 pg/mL 0-100 H (test code = 700) Computer Installer ID - BSLipid [id number] 03:52:00 Test Item Value Reference Range Interpretation Comments Triglycerides (test 60 mg/dL Specimen code = 2571-8) slightly hemolyzed Cholesterol (test 55 mg/dL Specimen code = 2093-3) slightly hemolyzed HDL (test code = 15 mg/dL 5-9) LDL Calculated (test 28 mg/dL code = 79809-1) DORI (test code = Triglyceride DORI) Reference Range: Low Risk <150 Borderline 150-199 High Risk 200-499 Very High Risk >=500 Cholesterol Reference Range: Low Risk <200 Borderline 200-239 High Risk >240 HDL Cholesterol Reference Range: Low Risk >=60 High Risk <40 LDL Cholesterol Reference Range: Optimal <100 Near Optimal 100-129 Borderline 130-159 High 160-189 Very High >=190 Computer Installer ID - SANDRA WSpecimen slightly icteric [facility]OLIC [id number] 03:52:00 Test Item Value Reference Range Interpretation [...] S NOT APPLICABLE FOR DIALYSIS PATIEN TS. Computer Installer ID Sultana SEWELLpecimecely slightly ictericHEPATIC FUNCTION [id number] 03:52:00 Test Item Value Reference Range Interpretation [...] Specimen slightly (test code = 347) hemolyzed Computer Installer ID - SANDRA SEWELLpecimen slightly ictericLIPID [id number] 03:52:00 Test Item Value Reference Range Interpretation [...] Borderline 130-159 High 160-189 Very High >=190 Computer Installer ID - SANDRAWSpecimen slightly ictericVANCOMYCIN LEVEL, RANDOM 2019-03-20 03:51:00 Test Item Value Reference Range Interpretation Comments VANCOMYCIN RANDOM (BEAKER) (test 52.3 ug/mL code = 523) Reference Range: No NormalsOperator ID Sultana FLORES [id number] 03:49:00 Test Item Value Reference Range Interpretation Comments MAGNESIUM (BEAKER) 2.1 mg/dL 1.6-2.6 Specimen slightly (test code = 627) hemolyzed Computer Installer ID - SANDRA [id number] 03:49:00 Test Item Value Reference Range Interpretation Comments PHOSPHORUS (BEAKER) 3.0 mg/dL 2.3-4.7 Specimen slightly (test code = 604) hemolyzed Computer Installer ID - SANDRA [id number] 03:36:00 Test Item Value Reference Range Interpretation Comments FIBRINOGEN LEVEL (BEAKER) (test 492 mg/dl 225-434 H code = 658) [id number] 03:36:00 Test Item Value Reference Range Interpretation [...] is2.5-3.5 for patients wiht mechanical heart valves.PROTHROMBIN [id number] 03:35:00 Test Item Value Reference Range Interpretation [...] for patients wiht mechanical heart valves.Chloride, random [id number] 03:33:00 Test Item Value Reference Range Interpretation Comments ChlorideUr (test <20 meq/L code = 97613-0) DORI (test code = Reference Range: No DORI) NormalsOperator ID - BS [facility] [id number] 03:33:00 Test Item Value Reference Range Interpretation Comments SODIUM URINE (BEAKER) (test code = < meq/L 243) Reference Range: No NormalsOperator ID - BSCHLORIDE, RANDOM [id number] 03:33:00 Test Item Value Reference Range Interpretation Comments CHLORIDE URINE (BEAKER) (test code = < meq/L 682) Reference Range: No NormalsOperator ID - BSProtein, random [id number] 03:32:00 Test Item Value Reference Range Interpretation Comments Protein, Urine (test code = 72 mg/dL 0-14 H 2888-6) DORI (test code = DORI) Computer Installer ID - BS Lab Interpretation (test Abnormal code = 93209-2) [facility] [id number] 03:32:00 Test Item Value Reference Range Interpretation Comments CREATININE URINE (BEAKER) (test 120.7 mg/dL code = 375) Reference Range: No NormalsOperator ID - BSPROTEIN, RANDOM [id number] 03:32:00 Test Item Value Reference Range Interpretation Comments PROTEIN, URINE (BEAKER) (test code = 72 mg/dL 0-14 H 1569) Computer Installer ID - BSUREA NITROGEN, RANDOM [id number] 03:32:00 Test Item Value Reference Range Interpretation Comments UREA NITROGEN URINE (BEAKER) (test 915 mg/dL code = 538) Reference Range: No NormalsOperator ID - BSStrep pneumoniae [id number] 03:31:00 Test Item Value Reference Range Interpretation Comments Strep pneumoniae Presumptive negative Presumptive Antigen (test code = [place] [address]-9) pneumonia - see pneumococcal comment pneumonia - see comment, Presumptive negative for pneumococcal meningitis DORI (test code = DORI) Presumptive negative for pneumococcal pneumonia, suggesting no current or recent pneumococcal infection. Infection due to S. pneumoniae cannot be ruled out since the antigen present in the sample may be below the detection limit of the test. Lab Interpretation Normal (test code = 43203-1) [facility] HospitalTRE PNEUMONIAE [id number] 03:31:00 Test Item Value Reference Range Interpretation [...] the detection limit of the test.Legionella antigen, [id number] 03:30:00 Test Item Value Reference Range Interpretation Comments Legionella Urine Negative - see Negative for L. Antigen (test code comment pneumophi la = 04957-9) serogroup 1 ant igen, suggesting no r ecent or current infe ction with this serog roup. Legionellosis c annot be ruled out si nce other serogroup s and species may cau se disease. [facility] HospitalLEGIONELLA ANTIGEN, [id number] 03:30:00 Test Item Value Reference Range Interpretation Comments L. PNEUMOPHILA Negative - see Negative fo r L. SEROGP 1 UR AG comment pneumophila (BEAKER) (test code serogrou p 1 antigen, = 1156) suggesting no r ecent or current infe ction with this serog roup. Legionellosis c annot be ruled out si nce other serogroup s and species may cau se disease. POCT-GLUCOSE [id number] 00:50:00 Test Item Value Reference Range Interpretation Comments POC-GLUCOSE METER 87 mg/dL 70-110 : TESTED A T [facility] 6720 (BEAKER) (test code = ILDA ROBLERO CT, 1538) 10222: 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 ID = [id number] for CHARLEEN OLIVER [id number] 09:16:00 Test Item Value Reference Range Interpretation Comments MAGNESIUM (BEAKER) (test code = 1.7 mg/dL 1.6-2.6 627) [id number] 09:16:00 Test Item Value Reference Range Interpretation Comments PHOSPHORUS (BEAKER) (test code = 4.2 mg/dL 2.3-4.7 604) BASIC METABOLIC [id number] 05:44:00 Test Item Value Reference Range Interpretation [...] PATIEN TS. CBC W/PLT COUNT & AUTO [id number] 05:29:00 Test Item Value Reference Range Interpretation [...] PERCENT (BEAKER) (test code = 2801) TROPONIN [id number] 22:36:00 Test Item Value Reference Range Interpretation [...] acidosis, acute neurological disease, and persistent tachyarrhythmia.TROPONIN [id number] 16:36:00 Test Item Value Reference Range Interpretation [...] neurological disease, and persistent tachyarrhythmia.TSH/FREE T4 IF [id number] 10:58:00 Test Item Value Reference Range Interpretation Comments THYROID STIMULATING HORMONE 1.16 uIU/mL 0.35-4.94 (MACYAKER) (test code = 772) TROPONIN [id number] 10:44:00 Test Item Value Reference Range Interpretation [...] of Study 01/22/2019 Gender Male Visit Number [id number] Race Unknown Room Number 2238 Number Date of 1955 Referring [facility] Physician Age 63 year(s) Public Relations Johnny Eller, NB, RDCS,RVT,RDMS Post Manager Aliya Yee Interpreting Lyn Mike MD [facility] Physician Procedure Type of Study TTE procedure:2DECHO [...] of 1.82 cm2. 4. Mild mitral regurgitation. Kfwh-af-tiduipvw mitral stenosis secondary to MAC. 5. Aortic [...] severity assessment is unreliable . Aortic Valve Gfor-sz-duiynquf AoV cusp calcification. Mild aortic stenosis. AoV area at rest by continuity equation is in the range of 1.82 cm2. Preserved stroke volume. Mitral Valve Mild MV leaflet thickening. Severe mitral annular and subvalvular calcification. Mild mitral regurgitation. Kbbz-ix-lqbupszl mitral stenosis secondary to MAC. MV area [...] CO: 4.89 l/min LVOT CI: 2.42 l/min/m^2[facility] CenterMAGNESIUM2019-11-28 10:05:00 Test Item Value Reference Range Interpretation Comments MAGNESIUM (BEAKER) (test code = 1.7 mg/dL 1.6-2.6 627) MR, MRA, BRAIN, WITHOUT [id number] 08:26:00FINAL REPORT MRV Head CLINICAL HISTORY:Stroke, follow upconcern for transverse sinus thrombosis, need MRV please TECHNIQUE: MRV of the head utilizing 2-D nkmx-fd-gvpidc technique. COMPARISON: CTA 01/22/2019 FINDINGS: There is an irregular filling defect within the medial aspect of the left transverse sinus, corresponding with the abnormality seen on yesterday's CTA. The other major dural venous sinuses in the brain are patent. IMPRESSION: Filling defect within the medial aspect of the left transverse sinus remains concerning for venous thrombosis. Signed: Delaney Rajan MDReport Verified Date/Time: 01/23/2019 08:26:36 MRA head without IV [id number] 08:26:00Interface, External Ris In - 01/23/2019 8:29 AM CSTFINAL REPORT MRV Head CLIN ICAL HISTORY:Stroke, follow upconcern for transverse sinus thrombosis, need MRV please TECHNIQUE: MRV of the head utilizing 2-D gggs-le-mcfzyr technique. COMPARISON: CTA 01/22/2019 FINDINGS: There is an irregular filling defect within the medial aspect of the left transverse sinus, corresponding with the abnormality seen on yesterday's CTA. The other major dural venous sinuses in the brain are patent. IMPRESSION: Filling defect within the medial aspect of the left transverse sinus remains concerningfor venous thrombosis. Signed: Delaney Rajan Verified Date/Time: 01/23/2019 08:26:36 [facility] [id number] 05:55:00 Test Item Value Reference Range Interpretation [...] PATIEN TS. CBC W/PLT COUNT & AUTO [id number] 05:34:00 Test Item Value Reference Range Interpretation [...] 0-1 PERCENT (BEAKER) (test code = 2801) [id number] 20:49:00 Test Item Value Reference Range Interpretation Comments POTASSIUM (BEAKER) (test code = 2.8 meq/L 3.5-5.1 L 379) MR, BRAIN, WITHOUT [id number] 19:25:00Reason for exam:->Ischemic Stroke EvaluationFINAL REPORT MR, [...] Date/Time: 01/22/2019 19:25:11 MR brain without IV [id number] 19:25:00Interface, External Ris In - 01/22/2019 7:28 [...] Signed: Delaney Rajan Verified Date/Time: 01/22/2019 19:25:11 [facility] [id number] 19:16:00FINAL REPORT CLINICAL HISTORY: Neuro deficit, acute, [...] RICH on 01/22/2019 7:14 PM. Signed: Delaney Rajaneport Verified Date/Time: 01/22/2019 19:16:06 CT, CAROTID, [id number] 19:16:00FINAL REPORT CLINICAL HISTORY: Neuro deficit, acute, [...] Rajan MDReport Verified Date/Time: 01/22/2019 19:16:06 CTA [id number] 19:16:00Interface, External Ris In - 01/22/2019 7:18 [...] Delaney Rajan MDReport Verified Date/Time: 01/22/2019 19:16:06 [facility] CTA [id number] 19:16:00Interface, External Ris In - 01/24/2019 2:56 [...] Delaney Rajan MDReport Verified Date/Time: 01/22/2019 19:16:06 [facility] CenterRPR2019-11-27 11:47:00 Test Item Value Reference Range Interpretation Comments RPR (test code = 41588-9) Nonreactive Nonreactive Lab Interpretation (test code = Normal 06175-0) [facility] CenterRPR2019-11-27 11:47:00 Test Item Value Reference Range Interpretation Comments RPR SCREEN (BEAKER) (test code = Nonreactive Nonreactive 420) [id number] 08:23:00 Test Item Value Reference Range Interpretation Comments MAGNESIUM (BEAKER) (test code = 1.7 mg/dL 1.6-2.6 627) FastingHEMOGLOBIN [id number] 08:10:00 Test Item Value Reference Range Interpretation Comments HEMOGLOBIN A1C (BEAKER) (test code = 5.7 % 4.3-6.1 368) FastingLIPID [id number] 05:15:00 Test Item Value Reference Range Interpretation [...] 130-159 High 160-189 Very High >=190 FastingTROPONIN [id number] 05:11:00 Test Item Value Reference Range Interpretation [...] neurological disease, and persistent tachyarrhythmia.FastingVITAMIN B12 AND [id number] 04:01:00 Test Item Value Reference Range Interpretation Comments VITAMIN B12 (BEAKER) (test code = 1973 pg/mL 213-816 H 774) FOLATE (BEAKER) (test code = 362) 18.5 ng/mL >=7.0 TSH/FREE T4 IF [id number] 03:48:00 Test Item Value Reference Range Interpretation Comments THYROID STIMULATING HORMONE 1.38 uIU/mL 0.35-4.94 (BEAKER) (test code = 772) TROPONIN [id number] 00:15:00 Test Item Value Reference Range Interpretation [...] acute neurological disease, and persistent tachyarrhythmia.BASIC METABOLIC [id number] 00:11:00 Test Item Value Reference Range Interpretation [...] FOR DIALYSIS PATIEN TS. Specimen slightly ictericPROTHROMBIN TIME/[id number] 23:48:00 Test Item Value Reference Range Interpretation [...] mechanical heart valves.RAD, CHEST, 1 VIEW, NON [id number] 23:46:00Reason for exam:->strokeShould this be performed at the bedside?->YesFINAL REPORT INDICATION: stroke TECHNIQUE: Chest radiograph, single view, portable technique. FINDINGS / IMPRESSION: Patient is status post median sternotomy.Heart shadow is enlarged and there is a small right pleural effusion.No overt pulmonary edema, discrete pneumonia, or pneumothorax is demonstrated.Osseous structures unremarkable. Signed: Jesus Granteport VerifiedDate/Time: 01/21/2019 23:46:27 Reading Location: [address] Consult Reading Room CBC W/PLT COUNT & AUTO [id number] 23:39:00 Test Item Value Reference Range Interpretation [...]
[2019-09-08 03:39] LABS: Absolute Lymphocytes (CBC) 1.7 K/uL (0.7-4.9); Basophils % 0.9 % (0-1.3); Hematocrit 36.3 % (39.6-49.0); Lymphocytes % 19.7 % (15.3-44.8); MPV 9.1 fL (7.6-11.3); RBC Red Blood Cell Count 4.68 M/uL (4.33-5.43)
[2019-09-08 03:40] LABS: Protime INR 2.06
[2019-09-08 06:46] LABS: Urine Blood NEGATIVE (NEG); Urine Glucose NEGATIVE (NEG); Urine Protein NEGATIVE (NEG); Urine pH 8.5 (5.0-7.0)
[2019-09-08 07:46] LABS: ALT/SGPT 31 U/L (12-78); AST/SGOT 44 U/L (15-37); Alkaline Phosphatase 122 U/L (45-117); BUN Blood Urea Nitrogen 31 mg/dL (7-18); Bicarbonate 38 mmol/L (21-32); Bilirubin Direct 0.4 mg/dL (0-0.2); Bilirubin Total 0.7 mg/dL (0.2-1.0); CKMB Creatine Kinase MB < 1.0 ng/mL (0.3-3.6); Creatine Phosphokinase 42 U/L (39-308); Glucose Level 82 mg/dL (74-106); Lipase 38 U/L (73-393); Magnesium 2.5 mg/dL (1.8-2.4); Potassium 2.7 mmol/L (3.5-5.1); Protein, Total 6.3 g/dL (6.4-8.2); Sodium Level 139 mmol/L (136-145); Troponin (Emerg Dept Use Only) 0.02 ng/mL (0.0-0.045)
--- NOTE | 2019-09-08 08:03 | ER ---
Nurse's Notes [facility] Name: Tex Vergara Age: 63 yrs Sex: Male : 1955 Arrival Date: 09/08/2019 Time: 02:34 Bed 3 Private MD: Diagnosis: Hypokalemia;Altered mental status, unspecified Presentation: 09/07 02:38 Chief complaint: EMS states: "we were called for a pt with AMS and multiple falls jd3 today. it is possible that it is dementia, but he has not been diagnosed. no injuries that we know of with the falls, the main report from the family was the altered mental status. the family is reporting that one minute he is fine and the next he will be trying to use the restroom as if he thinks he is in the bathroom.". Coronavirus screen: Proceed with normal triage. Ebola Screen: Patient negative for fever greater than or equal to 101.5 degrees Fahrenheit, and additional compatible Ebola Virus Disease symptoms. Initial Sepsis Screen: Does the patient meet any 2 criteria? No. Patient's initial sepsis screen is negative. Does the patient have a suspected source of infection? No. Patient's initial sepsis screen is negative. Risk Assessment: Do you want to hurt yourself or someone else? Patient reports no desire to harm self or others. Onset of symptoms was September 08, 2019. 02:38 Method Of Arrival: EMS: [facility] jd3 02:38 Acuity: SUMMER 2 jd3 Historical: - Allergies: 02:45 No Known Allergies; jd3 - Home Meds: 02:45 Amiodarone Oral [Active]; Aspirin Oral [Active]; atorvastatin Oral [Active]; Bupropion jd3 Oral [Active]; diltiazem HCl 120 mg Oral cpER 1 cap once daily [Active]; Eliquis 5 mg Oral tab 1 tab 2 times per day [Active]; Ferrous Sulfate Oral [Active]; folic acid 1 mg Oral tab 1 tab once daily [Active]; furosemide 40 mg Oral tab 1 tab 2 times per day [Active]; Furosemide Oral [Active]; gabapentin 300 mg Oral cap 1 cap 3 times per day [Active]; hydrocodone-acetaminophen 7.5-325 mg Oral tab 1 tab every 4-6 hours [Active]; magnesium oxide 400 mg Oral cap [Active]; Melatonin Oral [Active]; metolazone 5 mg Oral tab [Active]; metoprolol tartrate 100 mg Oral tab 1 tab 2 times per day [Active]; midodrine Oral [Active]; Multiple Vitamins Oral [Active]; potassium chloride 20 mEq Oral TbER 1 tab once daily [Active]; Potassium Chloride Oral [Active]; Vitamin B-12 500 mcg Oral tab [Active]; - PMHx: 02:45 COPD; TIA; Hypertension; Atrial Fib; CHF; stroke; jd3 - PSHx: 02:45 peg tube; heart transplant; CABG; jd3 - Immunization history:: Adult Immunizations unknown. - Social history:: Smoking status: unknown. Screenin:33 Abuse screen: Denies threats or abuse. Nutritional screening: No deficits noted. jd3 Tuberculosis screening: No symptoms or risk factors identified. Fall Risk Fall in past 12 months (25 points). IV access (20 points). Ambulatory Aid- None/Bed Rest/Nurse Assist (0 pts). Gait- Weak (10 pts.). Mental Status- Overestimates/Forgets Limitations (15 pts.). Total Jason Fall Scale indicates High Risk Score (45 or more points). Fall prevention measures have been instituted. Side Rails Up X 2 Placed Close to Nursing Station Frequent Obs/Assessments Occuring Family Present and informed to notify staff if the need to leave the bedside. Assessment: 02:50 General: Appears in no apparent distress. comfortable, Behavior is calm, cooperative, jd3 appropriate for age. Pain: Denies pain. Neuro: Level of Consciousness is awake, alert, obeys commands, confused, Oriented to person. Cardiovascular: Denies chest pain, Capillary refill < 3 seconds Patient's skin is warm and dry. Respiratory: Airway is patent Respiratory effort is even, unlabored, Respiratory pattern is regular, symmetrical, Denies cough, shortness of breath. GI: No signs and/or symptoms were reported involving the gastrointestinal system. : No signs and/or symptoms were reported regarding the genitourinary system. EENT: No signs and/or symptoms were reported regarding the EENT system. Derm: Skin is intact, Skin is dry, Skin is normal, Skin temperature is warm Bruising that is dark purple, on right flank. Musculoskeletal: Circulation, motion, and sensation intact. Range of motion: intact in all extremities. 04:14 Reassessment: Patient appears in no apparent distress at this time. No changes from j previously documented assessment. Patient and/or family updated on plan of care and expected duration. Pain level reassessed. 05:34 Reassessment: Patient appears in no apparent distress at this time. Patient and/or jd3 family updated on plan of care and expected duration. Pain level reassessed. awaiting results and disposition. 06:18 Reassessment: Patient appears in no apparent distress at this time. Patient and/or mg2 family updated on plan of care and expected duration. Pain level reassessed. 07:15 Reassessment: Patient appears in no apparent distress at this time. Patient and/or hb family updated on plan of care and expected duration. Pain level reassessed. 08:15 Reassessment: Patient appears in no apparent distress at this time. No changes from previously documented assessment. Patient and/or family updated on plan of care and expected duration. Pain level reassessed. 09:15 Reassessment: Patient appears in no apparent distress at this time. No changes from previously documented assessment. Patient and/or family updated on plan of care and expected duration. Pain level reassessed. 10:10 Reassessment: Patient appears in no apparent distress at this time. Patient and/or hb family updated on plan of care and expected duration. Pain level reassessed. Admission ordered, awaiting room assignment at this time. 10:11 Reassessment: ER HOLD, CHARTING CONTINUED IN [facility]. Vital Signs: 02:36 BP 110 / 73; Pulse 64; Resp 16 S; Temp 98.5(O); Pulse Ox 98% on R/A; Weight 81.65 kg jd3 (R); Height 6 ft. 0 in. (182.88 cm) (R); Pain 0/10; 04:14 BP 103 / 54; Pulse 60; Resp 16 S; Pulse Ox 100% on R/A; jd3 05:33 BP 104 / 77; Pulse 69; Resp 19 S; Pulse Ox 99% on R/A; jd3 06:18 BP 111 / 57; Pulse 66; Resp 18; Pulse Ox 98% on R/A; mg2 07:30 BP 104 / 67; Pulse 73; Resp 18; Pulse Ox 100% on R/A; hb 08:30 BP 121 / 61; Pulse 65; Resp 17; Pulse Ox 99% on R/A; hb 10:00 BP 106 / 65; Pulse 67; Resp 19; Pulse Ox 100% on R/A; hb 02:36 Body Mass Index 24.41 (81.65 kg, 182.88 cm) jd3 ED Course: 02:34 Patient arrived in ED. ds1 02:41 Triage completed. jd3 02:41 Benito Hooker MD is Attending Physician. tw4 02:45 Arm band placed on. jd3 02:50 Inserted saline lock: 20 gauge in right antecubital area, using aseptic technique. mg2 Blood collected. 03:11 No provider procedures requiring assistance completed. mg2 03:12 Raheem Castillo, ALMA is Primary Nurse. jd3 03:12 EKG done, by ED staff, reviewed by Benito Hooker MD. ds4 03:34 Patient has correct armband on for positive identification. Placed in gown. Bed in low jd3 position. Call light in reach. Side rails up X2. Adult w/ patient. summer sessions director on. Pulse ox on. NIBP on. 04:12 CT Head Brain wo Cont In Process Unspecified. EDMS 06:18 Martinez cath inserted, using sterile technique, 16 Fr., by merchandise manager, balloon inflated, mg2 urine specimen collected. 08:02 Luca Morales DO is Hospitalizing Provider. tw4 08:34 Attending Physician role handed off by Benito Hooker MD wendy 08:34 Peter Peacock MD is Attending Physician. wendy 10:12 Patient admitted, IV remains in place. hb Administered Medications: 08:43 Drug: NS 0.9% 1000 ml Route: IV; Rate: 125 ml/hr; Site: right antecubital; hb 10:12 Follow up: Response: No adverse reaction; IV Status: Infusion continued upon admission; hb IV Intake: 200ml 08:44 Drug: Potassium Chloride 20 mEq Route: IV; Rate: calculated rate; Site: right hb antecubital; 10:12 Follow up: Response: No adverse reaction; IV Status: Infusion continued upon admission; hb IV Intake: 75ml Intake: 08:44 PO: 0ml; Total: 0ml. hb 10:12 IV: 200ml; Total: 200ml. hb 10:12 IV: 75ml; Total: 275ml. hb Output: 08:44 Urine: 700ml (Martinez); Total: 700ml. hb Outcome: 08:02 Decision to Hospitalize by Provider. tw4 10:11 Admitted to ER Hold. Please see [facility] for further documentation. hb 10:11 Condition: stable 10:11 Instructed on the need for admit. 13:09 Patient left the ED. hb Signatures: Dispatcher [employer] EDMS Peter Peacock MD MD cha Sanford, Demi ds1 Mazin Matute ds4 Barbara Johnston, ALMA RN Raheem Castillo RN RN jd3 Benito Hooker MD MD tw4 Yannick Mitchell RN RN mg2 Corrections: (The following items were deleted from the chart) 03:34 03:34 Patient has correct armband on for positive identification. Placed in gown. Bed jd3 in low position. Call light in reach. Side rails up X 1. Adult w/ patient. jd3 03:34 03:33 Fall Risk Ambulatory Aid- None/Bed Rest/Nurse Assist (0 pts). Gait- Normal/Bed jd3 Rest/Wheelchair (0 pts) Mental Status- Oriented to own ability (0 pts). Total Jason Fall Scale indicates No Risk (0-24 pts). jd3
--- NOTE | 2019-09-08 08:03 | EDPHYS ---
Physician Documentation [facility] Name: Tex Vergara Age: 63 yrs Sex: Male : 1955 Arrival Date: 09/08/2019 Time: 02:34 Bed 3 Private MD: ED Physician Peter Peacock HPI: 09/07 02:57 This 63 yrs old Male presents to ER via EMS with complaints of Altered Mental tw4 Status. 02:57 The patient presents with decreased mental status, decreased responsiveness, tw4 disorientation, to person, to place, to time. Onset: The symptoms/episode began/occurred last week, and became worse today. Possible causes: unknown. Associated signs and symptoms: The patient has no apparent associated signs or symptoms. Patient's baseline: Neuro: alert but confused, Motor: no deficits, Ambulation: walks without assistance, Speech: normal. Unable to obtain HPI due to altered mental status, obtunded state. The patient has not experienced similar symptoms in the past. Historical: - Allergies: 02:45 No Known Allergies; jd3 - Home Meds: 02:45 Amiodarone Oral [Active]; Aspirin Oral [Active]; atorvastatin Oral [Active]; Bupropion jd3 Oral [Active]; diltiazem HCl 120 mg Oral cpER 1 cap once daily [Active]; Eliquis 5 mg Oral tab 1 tab 2 times per day [Active]; Ferrous Sulfate Oral [Active]; folic acid 1 mg Oral tab 1 tab once daily [Active]; furosemide 40 mg Oral tab 1 tab 2 times per day [Active]; Furosemide Oral [Active]; gabapentin 300 mg Oral cap 1 cap 3 times per day [Active]; hydrocodone-acetaminophen 7.5-325 mg Oral tab 1 tab every 4-6 hours [Active]; magnesium oxide 400 mg Oral cap [Active]; Melatonin Oral [Active]; metolazone 5 mg Oral tab [Active]; metoprolol tartrate 100 mg Oral tab 1 tab 2 times per day [Active]; midodrine Oral [Active]; Multiple Vitamins Oral [Active]; potassium chloride 20 mEq Oral TbER 1 tab once daily [Active]; Potassium Chloride Oral [Active]; Vitamin B-12 500 mcg Oral tab [Active]; - PMHx: 02:45 COPD; TIA; Hypertension; Atrial Fib; CHF; stroke; jd3 - PSHx: 02:45 peg tube; heart transplant; CABG; jd3 - Immunization history:: Adult Immunizations unknown. - Social history:: Smoking status: unknown. ROS: 03:01 Constitutional: Negative for fever, chills, and weight loss, Eyes: Negative for injury, tw4 pain, redness, and discharge, Cardiovascular: Negative for chest pain, palpitations, and edema, Respiratory: Negative for shortness of breath, cough, wheezing, and pleuritic chest pain, Abdomen/GI: Negative for abdominal pain, nausea, vomiting, diarrhea, and constipation, Back: Negative for injury and pain, MS/Extremity: Negative for injury and deformity, Skin: Negative for injury, rash, and discoloration. 03:01 Neuro: Positive for altered mental status. Exam: 02:57 Constitutional: This is a well developed, well nourished patient who is awake, alert, tw4 and in no acute distress. Head/Face: Normocephalic, atraumatic. Neck: Trachea midline, no thyromegaly or masses palpated, and no cervical lymphadenopathy. Supple, full range of motion without nuchal rigidity, or vertebral point tenderness. No Meningismus. Chest/axilla: Normal chest wall appearance and motion. Nontender with no deformity. No lesions are appreciated. Cardiovascular: Regular rate and rhythm with a normal S1 and S2. No gallops, murmurs, or rubs. Normal PMI, no JVD. No pulse deficits. Respiratory: Lungs have equal breath sounds bilaterally, clear to auscultation and percussion. No rales, rhonchi or wheezes noted. No increased work of breathing, no retractions or nasal flaring. Abdomen/GI: Soft, non-tender, with normal bowel sounds. No distension or tympany. No guarding or rebound. No evidence of tenderness throughout. MS/ Extremity: Pulses equal, no cyanosis. Neurovascular intact. Full, normal range of motion. 02:57 Neuro: Orientation: is normal, Mentation: slow to respond. Vital Signs: 02:36 BP 110 / 73; Pulse 64; Resp 16 S; Temp 98.5(O); Pulse Ox 98% on R/A; Weight 81.65 kg jd3 (R); Height 6 ft. 0 in. (182.88 cm) (R); Pain 0/10; 04:14 BP 103 / 54; Pulse 60; Resp 16 S; Pulse Ox 100% on R/A; jd3 05:33 BP 104 / 77; Pulse 69; Resp 19 S; Pulse Ox 99% on R/A; jd3 06:18 BP 111 / 57; Pulse 66; Resp 18; Pulse Ox 98% on R/A; mg2 07:30 BP 104 / 67; Pulse 73; Resp 18; Pulse Ox 100% on R/A; hb 08:30 BP 121 / 61; Pulse 65; Resp 17; Pulse Ox 99% on R/A; hb 10:00 BP 106 / 65; Pulse 67; Resp 19; Pulse Ox 100% on R/A; hb 02:36 Body Mass Index 24.41 (81.65 kg, 182.88 cm) jd3 MDM: 02:41 Patient medically screened. tw4 03:09 Data reviewed: vital signs, nurses notes. Data interpreted: Pulse oximetry: tw4 Interpretation: normal. Counseling: I had a detailed discussion with the patient and/or guardian regarding: the historical points, exam findings, and any diagnostic results supporting the discharge/admit diagnosis. 08:01 Differential Diagnosis: CVA, electrolyte abnormality. Physician consultation: Luca [facility] Andrew ROSAS regarding admission, to the telemetry unit. patient's condition, and will see patient in inpatient room. 08:34 Patient medically screened. [facility] 09/07 02:55 Order name: Glucose, Ancillary Testing; Complete Time: 05:02 EDIL 09/07 03:09 Order name: Basic Metabolic Panel; Complete Time: 07:57 tw 09/07 07:57 Interpretation: Normal except: K 2.7; CL 96; CO2 38; BUN 31; GFR 63. [facility] 09/07 03:09 Order name: CBC with Diff; Complete Time: 05:02 tw4 09/07 05:03 Interpretation: Normal except: WBC 8.6; HGB 11.9; HCT 36.3; MCV 77.6; MCH 25.4; RDW tw4 15.8. 09/07 03:09 Order name: Ckmb; Complete Time: 07:57 [facility] 09/07 07:59 Interpretation: Within normal limits: CKMB < 1.0. [facility] 09/07 03:09 Order name: CPK; Complete Time: 07:57 tw 09/07 07:59 Interpretation: CPK 42. 09/07 03:09 Order name: Hepatic Function; Complete Time: 07:57 09/07 07:57 Interpretation: Normal except: A/G 0.5; GLOB 4.3; ALB 2.0; TP 6.3; BILID 0.4; ALK 122; tw4 AST 44. 09/07 03:09 Order name: CT Head Brain wo Cont 09/07 03:09 Order name: Lipase; Complete Time: 07:57 09/07 07:58 Interpretation: Within normal limits: LIP 38. 09/07 03:09 Order name: Magnesium; Complete Time: 07:57 09/07 03:09 Order name: Protime (+inr); Complete Time: 05:02 09/07 05:03 Interpretation: Abnormal: PT 24.0. 09/07 03:09 Order name: Ptt, Activated; Complete Time: 05:02 09/07 05:02 Interpretation: Abnormal: PTT 39.1. 09/07 03:09 Order name: Troponin (emerg Dept Use Only); Complete Time: 07:57 09/07 06:36 Order name: Urine Dipstick--Ancillary (enter results); Complete Time: 07:02 09/07 11:37 Order name: RAD EDMS 09/07 03:09 Order name: EKG; Complete Time: 03:10 09/07 03:09 Order name: Cardiac monitoring; Complete Time: 03:10 09/07 03:09 Order name: EKG - Nurse/Tech; Complete Time: 03:10 09/07 03:09 Order name: IV Saline Lock; Complete Time: 03:10 09/07 03:09 Order name: Labs collected and sent; Complete Time: 03:10 09/07 03:09 Order name: NPO; Complete Time: 03:11 09/07 03:09 Order name: O2 Per Protocol; Complete Time: 03:11 09/07 03:09 Order name: O2 Sat Monitoring; Complete Time: 03:11 09/07 03:09 Order name: Urine Dipstick-Ancillary (obtain specimen); Complete Time: 06:19 09/07 03:37 Order name: Labs - recollect needed: Green top- hemolyzed; Complete Time: 03:48 sg EC:09 Rate is 69 beats/min. Rhythm is irregularly irregular, A fib with Left bundle branch tw4 block. QRS [place] is Normal. LA interval is normal. QRS interval is normal. QT interval is normal. No Q waves. T waves are Normal. No ST changes noted. Clinical impression: Atrial Fibrillation. Interpreted by me. Reviewed by me. Administered Medications: 08:43 Drug: NS 0.9% 1000 ml Route: IV; Rate: 125 ml/hr; Site: right antecubital; 10:12 Follow up: Response: No adverse reaction; IV Status: Infusion continued upon admission; hb IV Intake: 200ml 08:44 Drug: Potassium Chloride 20 mEq Route: IV; Rate: calculated rate; Site: right antecubital; 10:12 Follow up: Response: No adverse reaction; IV Status: Infusion continued upon admission; hb IV Intake: 75ml Disposition: 09/08/19 08:02 Hospitalization ordered by Luca Morales for Inpatient Admission. Preliminary diagnosis are Hypokalemia, Altered mental status, unspecified. - Bed requested for Telemetry/MedSurg (Inpatient). - Status is Inpatient Admission. hb - Condition is Stable. - Problem is an ongoing problem. - Symptoms are unchanged. Signatures: Dispatcher [employer] EDMS France Becerra RN RN kl Gay, Steven, RN RN sg Anderson, Corey, MD MD cha Smirch, Shelby, RN RN ss Baxter, Heather, RN RN hb Davies, Jonathon, RN RN jd3 Wadley, Terrence, MD MD tw4 Corrections: (The following items were deleted from the chart) 03:03 02:57 Constitutional: Negative for fever, chills, and weight loss, Eyes: Negative for tw4 injury, pain, redness, and discharge, Cardiovascular: Negative for chest pain, palpitations, and edema, Respiratory: Negative for shortness of breath, cough, wheezing, and pleuritic chest pain, Abdomen/GI: Negative for abdominal pain, nausea, vomiting, diarrhea, and constipation, Back: Negative for injury and pain, Skin: Negative for injury, rash, and discoloration, Neuro: Negative for headache, weakness, numbness, tingling, and seizure, tw4 10:11 08:02 Hospitalization Ordered by Luca Morales DO for Inpatient Admission. Preliminary ss diagnosis is Hypokalemia; Altered mental status, unspecified. Bed requested for Telemetry/MedSurg (Inpatient). Status is Inpatient Admission. Condition is Stable. Problem is an ongoing problem. Symptoms are unchanged. tw4 12:03 10:11 09/08/2019 08:02 Hospitalization Ordered by Luca Morales DO for Inpatient kl Admission. Preliminary diagnosis is Hypokalemia; Altered mental status, unspecified. Bed requested for [facility] ER HOLD. Status is Inpatient Admission. Condition is Stable. Problem is an ongoing problem. Symptoms are unchanged. ss 13:09 12:09/08/2019 08:02 Hospitalization Ordered by Luca Morales DO for Inpatient hb Admission. Preliminary diagnosis is Hypokalemia; Altered mental status, unspecified. Bed requested for Telemetry/MedSurg (Inpatient). Status is Inpatient Admission. Condition is Stable. Problem is an ongoing problem. Symptoms are unchanged. kl
[2019-09-08] MEDS ORDERED: NA CHLORIDE 0.9% 1,000 ML ONE (08:40)
[2019-09-08] MEDS ORDERED: KCL 20 MEQ/100 mL IVPB 20 MEQ/100 ML BAG IV ONE (08:41)
--- NOTE | 2019-09-08 09:34 | P.HP ---
Certification for Inpatient Patient admitted to: Inpatient With expected LOS: >2 Midnights Patient will require the following post-hospital care: Rehabilitation Practitioner: I am a practitioner with admitting privileges, knowledge of patient current condition, hospital course, and medical plan of care. Services: Services provided to patient in accordance with Admission requirements found in Title 42 Section 412.3 of the Code of Federal Regulations <Kavon Kim - Last Filed: 09/08/19 09:29> Patient History Date of Service: 09/08/19 Primary Care Provider: out Of town doctor Reason for admission: AMS, weakness, hypokalemia History of Present Illness: 63-year-old male with medical history of CHF, atrial fibrillation, hypertension, depression, COPD, CVA presented emergency department with decrease in mentation, multiple falls in the last couple of days. Family states that patient has been admitted twice in the past month for similar symptoms, that he stays in the hospital for a few days we correct his electrolytes, he starts moving around and he is discharged but it keeps happening over and over again. Patient currently alert, oriented to person and place but not to situation. Called daughter on phone, she reports that she would be more comfortable if we could arrange for home health and physical therapy for rehabilitation at that facility. The patient was evaluated in the emergency department found to have hypokalemia as well. When reviewing patient's previous admission note is echocardiogram was deemed to be a poor quality. Patient be admitted for further evaluation and management. When I saw the patient in the emergency department he was drowsy but alert, oriented to person and place but not situation. Patient is not appear septic at this time. Patient be admitted for further evaluation. - Past Medical/Surgical History Diabetic: No -: Hypertension -: Chronic back pain -: CHF -: Atrial Fibrillation -: Mild Stroke -: Depression -: Back surgery -: CABG -: PEG tube Psychosocial/ Personal History: Patient lives at home with his daughter - Family History Mother -: Heart disease Notes: Multiple strokes - Social History Smoking Status: Unknown if ever smoked Alcohol use: Yes CD- Drugs: No Caffeine use: Yes <Kavon Kim - Last Filed: 09/08/19 09:29> Date of Service: 09/08/19 Home medications list reviewed: Yes - Social History Place of Residence: Home <Luca Morales - Last Filed: 09/08/19 21:26> Allergies No Known Allergies Allergy (Verified 05/15/18 11:25) Home Medications: Apixaban [Eliquis] 5 mg PO BID 03/11/19 Furosemide 40 mg FT BID 03/11/19 Amiodarone HCl [Cordarone*] 200 mg FT BID 08/22/19 Aspirin Chewable [Aspirin Chewable*] 81 mg FT DAILY 08/22/19 Atorvastatin Calcium [Lipitor] 40 mg FT BEDTIME 08/22/19 Ferrous Sulfate [Ferrous Sulfate*] 325 mg FT BID 08/22/19 Midodrine HCl [Proamatine*] 5 mg FT TID 08/22/19 Bupropion HCl [Wellbutrin Sr] 100 mg FT DAILY 08/30/19 Jevity 1.5 Barney [Jevity 1.5 Barney*] 1 can FT QID 08/30/19 Lactulose [Cephulac*] 30 ml PO BID #1800 ml 09/01/19 Potassium Chloride 15 ml FT BID #1000 09/01/19 Review of Systems is unable to be obtained (Patient is unable to cooperate with exam.) <Kavon Kim - Last Filed: 09/08/19 09:29> Physical Examination - Physical Exam General: Alert, In no apparent distress, Other (Lethargic) HEENT: Atraumatic, Normocephalic, PERRLA, Other (The these membranes dry) Neck: Supple Respiratory: Normal air movement, Diminished (Bilaterally) Cardiovascular: No edema, Regular rate/rhythm, Normal S1 S2 Capillary refill: <2 Seconds Gastrointestinal: Normal bowel sounds, Soft and benign Musculoskeletal: No contractures, No erythema, No tenderness Integumentary: No significant lesion, No tenderness/swelling, No erythema Neurological: Normal speech, Normal tone - Studies Laboratory Data (last 24 hrs) 09/08/19 07:00: Sodium 139, Potassium 2.7 L*, BUN 31 H D, Creatinine 1.16, Glucose 82, Magnesium 2.5 H, Total Bilirubin 0.7, AST 44 H, ALT 31, Alkaline Phosphatase 122 H, Lipase 38 L 09/08/19 02:52: PT 24.0 H, INR 2.06, APTT 39.1 H 09/08/19 02:52: WBC 8.6 D, Hgb 11.9 L, Hct 36.3 L, Plt Count 277 <Kavon Kim - Last Filed: 09/08/19 09:29> - Studies Laboratory Data (last 24 hrs) 09/08/19 07:00: Sodium 139, Potassium 2.7 L*, BUN 31 H D, Creatinine 1.16, Glucose 82, Magnesium 2.5 H, Total Bilirubin 0.7, AST 44 H, ALT 31, Alkaline Phosphatase 122 H, Lipase 38 L 09/08/19 02:52: PT 24.0 H, INR 2.06, APTT 39.1 H 09/08/19 02:52: WBC 8.6 D, Hgb 11.9 L, Hct 36.3 L, Plt Count 277 <Luca Morales - Last Filed: 09/08/19 21:26> Assessment and Plan - Plan Assessment Dehydration with hypokalemia complicated with feeding tube use Generalize weakness with multiple falls Atrial fibrillation on chronic anticoagulation therapy History of CVA COPD CHF Plan Dehydration with hypokalemia complicated with feeding tube use: Will continue with gentle hydration, continue with dietary recommendations and tube feedings. Electrolyte protocol in place. Patient will remain on telemetry throughout this hospitalization. Will continue patient's Eliquis for DVT prophylaxis. Anticipate clinical improvement next 24-48 hr, patient will likely benefit from placement at a rehab facility or aggressive home health and physical therapy. Generalize weakness with multiple falls: Fall precautions in place. Will continue to monitor closely. Atrial fibrillation on chronic anticoagulation therapy: Continue patient's Eliquis, obtain repeat echocardiogram as previous echocardiogram was of poor quality. History of CVA: Continue patient's Eliquis, monitor patient closely. COPD: Will provide patient with albuterol inhaler as needed. Chronic diastolic heart failure without acute exacerbation: Half continue patient's Lasix, will keep close eye on patient's fluid status. Discharge Plan: [facility] Plan to discharge in: 48 Hours - Advance Directives Does patient have a Living Will: No Does patient have a Durable POA for Healthcare: No - Code Status/Comfort Care Code Status Assessed: Yes (Patient is full code) Critical Care: No Time Spent Managing Pts Care (In Minutes): 55 <Kavon Kim - Last Filed: 09/08/19 09:29> - Plan Cased discussed with [employer]RE TR[employer]IVER. Agree with evaluation, assessment and plan of care. Will hydrate. Dietary consult ordered to address daily needs. Will order PT to assess for inpatient rehab vs SNF. Continue with meds. Adjust diuretic. <Luca Morales - Last Filed: 09/08/19 21:26>
[2019-09-08] MEDS ORDERED: ACETAMINOPHEN 500 MG TAB PO PRN (10:15)
[2019-09-08] MEDS ORDERED: ONDANSETRON 4 MG/2 ML VIAL IV PRN (10:15)
[2019-09-08] MEDS ORDERED: ALBUTEROL INHALER 60 PUFF/8 GM IH PRN (10:15)
[2019-09-08] MEDS: NA CHLORIDE 0.9% 1,000 ML IV SCH ×2 (10:15→22:14)
[2019-09-08 11:00] VITALS: BMI 23.0
--- NOTE | 2019-09-08 11:34 | RAD REPORT ---
EXAM DESCRIPTION: [place] Single View09/08/2019 10:56 am CLINICAL HISTORY: Chest pain COMPARISON: August 29, 2019 FINDINGS: Small loculated right pleural effusion without significant change. Right basilar atelecta sis is present. The left lung appears clear of acute infiltrate. The heart remains enlarged. Postsurgical changes involve chest
--- NOTE | 2019-09-08 12:17 | RAD REPORT ---
EXAM DESCRIPTION: CT - Head Brain Wo Cont - 09/08/2019 4:38 am CLINICAL HISTORY: CONFUSED COMPARISON: CT head without contrast 08/29/2019. TECHNIQUE: Axial unenhanced CT imaging of the brain. Reformatted coronal and sagittal images obtaine d. This examination was performed according to our departmental dose optimization program, which include s automated exposure control, adjustment of the mA and/or kV according to patient size and/or use of iterative reconstruction technique. FINDINGS: Mild generalized cortical atrophy. There is moderate decreased white matter attenuation du e to chronic microvascular ischemic change. There is no intraparenchymal or extra-axial hemorrhage. N o edema, mass or midline shift. No large acute territorial infarction or hyperdense vessel. Normal cerebellum and vermis. Fourth ventricle is midline. Prepontine cisterns are not effaced. Viviana l sella contents. Intraorbital contents appear normal. Clear paranasal sinuses. Mastoid air cells are minimally opacifi ed bilaterally. Intact skull base and calvarium. Normal scalp soft tissues. IMPRESSION: 1. Mild to moderate senescent brain changes. No intracranial acute finding. 2. Mild bilateral mastoid effusion. Electronically signed by: Jaylene Yoo DO 09/08/2019 4:19 AM CDT Due to temporary technical issues with the PACS/Fluency reporting system, reports are being signed by the in house radiologist without review as a courtesy to ensure prompt reporting. The interpreting r adiologist is fully responsible for the content of the report.
[2019-09-08] MEDS: MIDODRINE HCL 5 MG TABLET FT SCH ×2 (16:24→21:56)
[2019-09-08] MEDS: JEVITY 1.5 CAL LIQUID 1,000 ML BOT FT SCH ×2 (16:24→21:00)
[2019-09-08] MEDS: FUROSEMIDE 40 MG TABLET FT SCH (16:24)
[2019-09-08] MEDS ORDERED: BUPROPRION HCL S.R. 150MG TAB PO SCH (21:00)
[2019-09-08] MEDS: FERROUS SULFATE 325 MG TAB PO SCH ×2 (21:00→21:57)
[2019-09-08] MEDS: AMIODARONE HCL 200 MG TAB FT SCH (21:57)
[2019-09-08] MEDS: APIXABAN 5 MG TABLET FT SCH (21:57)
[2019-09-08] MEDS: ATORVASTATIN 40 MG TAB FT SCH (21:57)
[2019-09-08] MEDS: buPROPion HCL 100 MG TAB FT SCH (21:58)
[2019-09-09] MEDS: KCL 20 MEQ/100 mL IVPB 20 MEQ/100 ML BAG IV SCH ×4 (03:09→23:12)
[2019-09-09 04:37] LABS: Absolute Lymphocytes (CBC) 1.5 K/uL (0.7-4.9); Basophils % 0.9 % (0-1.3); Hematocrit 35.8 % (39.6-49.0); RBC Red Blood Cell Count 4.62 M/uL (4.33-5.43)
[2019-09-09 04:57] LABS: ALT/SGPT 28 U/L (12-78); AST/SGOT 39 U/L (15-37); Albumin 1.9 g/dL (3.4-5.0); Alkaline Phosphatase 123 U/L (45-117); BUN Blood Urea Nitrogen 24 mg/dL (7-18); Bicarbonate 35 mmol/L (21-32); Bilirubin Total 0.9 mg/dL (0.2-1.0); Glucose Level 76 mg/dL (74-106); Magnesium 2.2 mg/dL (1.8-2.4); Sodium Level 142 mmol/L (136-145)
[2019-09-09 05:11] LABS: Potassium 2.4 mmol/L (3.5-5.1)
[2019-09-09] MEDS: JEVITY 1.5 CAL LIQUID 1,000 ML BOT FT SCH ×5 (08:00→21:00)
[2019-09-09] MEDS: ASPIRIN 81 MG CHEWABLE TABLET FT SCH (09:49)
[2019-09-09] MEDS: FUROSEMIDE 40 MG TABLET FT SCH ×2 (09:49→17:43)
[2019-09-09] MEDS: FERROUS SULFATE 325 MG TAB PO SCH ×2 (09:50→21:00)
[2019-09-09] MEDS: MIDODRINE HCL 5 MG TABLET FT SCH ×3 (09:50→21:57)
[2019-09-09] MEDS: APIXABAN 5 MG TABLET FT SCH ×2 (09:50→21:58)
[2019-09-09] MEDS: AMIODARONE HCL 200 MG TAB FT SCH ×2 (09:50→21:58)
[2019-09-09] MEDS: NA CHLORIDE 0.9% 1,000 ML IV SCH ×2 (09:52→19:55)
--- NOTE | 2019-09-09 15:33 | P.PN ---
Subjective Date of Service: 09/09/19 Primary Care Provider: out Of [facility] doctor Chief Complaint: AMS, weakness, hypokalemia Subjective: No new changes, Doing well Review of Systems 10-point ROS is otherwise unremarkable Physical Examination - Vital Signs Temperature: 98.3 F Blood Pressure: 104/49 Pulse: 69 Respirations: 16 Pulse Ox (%): 98 - Physical Exam General: Alert, In no apparent distress, Oriented x3 HEENT: Atraumatic, Normocephalic, PERRLA Neck: Supple, Other (Trachea midline) Respiratory: Clear to auscultation bilaterally, Normal air movement Cardiovascular: No edema, Normal pulses, Regular rate/rhythm, Normal S1 S2 Capillary refill: <2 Seconds Gastrointestinal: Normal bowel sounds, Soft and benign, Non-distended, Other (PEG tube in place, tolerating feeds) Musculoskeletal: No clubbing, No swelling, No contractures, No erythema Integumentary: No rashes, No breakdown, No significant lesion Neurological: Normal gait, Normal speech, Normal strength at 5/5 x4 extr, Normal tone Assessment And Plan - Plan Assessment Dehydration with hypokalemia complicated with feeding tube use Generalize weakness with multiple falls Atrial fibrillation on chronic anticoagulation therapy History of CVA COPD CHF Plan Dehydration with hypokalemia complicated with feeding tube use: Slowly i mproving. Will continue gentle hydration, continue with dietary recommendations and tube feedings. Tolerating tube feeds so far. Electrolyte protocol in place. Will continue replacing electrolytes as needed. Patient will remain on telemetry throughout this hospitalization. Will continue patient's Eliquis for DVT prophylaxis. Anticipate clinical improvement next 24-48 hr, patient will likely benefit from placement at a rehab facility or aggressive home health and physical therapy. Case management working on longterm placement. Generalize weakness with multiple falls: Fall precautions in place. Will continue to monitor closely. Atrial fibrillation on chronic anticoagulation therapy: Continue patient's Eliquis, obtain repeat echocardiogram as previous echocardiogram was of poor quality. History of CVA: Continue patient's Eliquis, monitor patient closely. COPD: Will provide patient with albuterol inhaler as needed. Patient is not our current O2 support at this time. Chronic diastolic heart failure without acute exacerbation: Half continue patie nt's Lasix, will keep close eye on patient's fluid status. Echocardiogram pending Discharge Plan: Care Home. Case management working home placement. Plan to discharge in: 48 Hours Discharge Plan: Care Home Plan to discharge in: 48 Hours - Code Status/Comfort Care Code Status Assessed: Yes Time Spent Managing PTS Care (In Minutes): 45
[2019-09-09] MEDS ORDERED: KCL 20 MEQ/100 mL IVPB 20 MEQ/100 ML BAG IV SCH (16:00)
[2019-09-09] MEDS: buPROPion HCL 100 MG TAB FT SCH (21:58)
[2019-09-09] MEDS: ATORVASTATIN 40 MG TAB FT SCH (21:58)
[2019-09-10] MEDS: NA CHLORIDE 0.9% 1,000 ML IV SCH ×2 (02:15→05:36)
[2019-09-10] MEDS: KCL 20 MEQ/100 mL IVPB 20 MEQ/100 ML BAG IV SCH ×2 (03:16→08:18)
[2019-09-10 04:46] LABS: Absolute Lymphocytes (CBC) 1.8 K/uL (0.7-4.9); Basophils % 0.9 % (0-1.3); Lymphocytes % 18.3 % (15.3-44.8); MPV 9.3 fL (7.6-11.3); RBC Red Blood Cell Count 4.67 M/uL (4.33-5.43)
[2019-09-10 05:06] LABS: ALT/SGPT 33 U/L (12-78); AST/SGOT 43 U/L (15-37); Alkaline Phosphatase 131 U/L (45-117); BUN Blood Urea Nitrogen 19 mg/dL (7-18); Bicarbonate 34 mmol/L (21-32); Glucose Level 82 mg/dL (74-106); Magnesium 1.9 mg/dL (1.8-2.4); Protein, Total 6.4 g/dL (6.4-8.2); Sodium Level 141 mmol/L (136-145)
[2019-09-10 05:08] LABS: Potassium 2.7 mmol/L (3.5-5.1)
[2019-09-10] MEDS: JEVITY 1.5 CAL LIQUID 1,000 ML BOT FT SCH ×5 (08:00→21:00)
[2019-09-10] MEDS: FERROUS SULFATE 325 MG TAB PO SCH ×2 (08:17→21:58)
[2019-09-10] MEDS: FUROSEMIDE 40 MG TABLET FT SCH ×2 (08:17→18:04)
[2019-09-10] MEDS: AMIODARONE HCL 200 MG TAB FT SCH ×2 (08:17→21:58)
[2019-09-10] MEDS: APIXABAN 5 MG TABLET FT SCH ×2 (08:17→21:57)
[2019-09-10] MEDS: ASPIRIN 81 MG CHEWABLE TABLET FT SCH (08:17)
[2019-09-10] MEDS: MIDODRINE HCL 5 MG TABLET FT SCH ×3 (08:17→22:01)
--- NOTE | 2019-09-10 11:50 | P.PN ---
Subjective Date of Service: 09/10/19 Primary Care Provider: out Of town doctor Chief Complaint: AMS, weakness, hypokalemia Subjective: Improving, Doing well <FerntoniaOebd henao - Last Filed: 09/10/19 11:52> Date of Service: 09/10/19 <Luca Morales - Last Filed: 09/10/19 14:49> Review of Systems General: Unremarkable Eyes: Unremarkable ENT: Unremarkable Respiratory: Unremarkable Cardiovascular: Unremarkable Gastrointestinal: Unremarkable Musculoskeletal: Unremarkable Integumentary: Bruising (Right lateral thorax) Neurological: Unremarkable <YouObed - Last Filed: 09/10/19 11:52> Physical Examination - Vital Signs Temperature: 98 F Blood Pressure: 105/61 Pulse: 80 Respirations: 18 Pulse Ox (%): 99 - Physical Exam General: Alert, In no apparent distress, Oriented x3 HEENT: Atraumatic, Normocephalic, PERRLA Neck: Supple, No Thyromegaly Respiratory: Clear to auscultation bilaterally, Normal air movement Cardiovascular: No edema, Normal pulses, Regular rate/rhythm, Normal S1 S2 Capillary refill: <2 Seconds Gastrointestinal: Normal bowel sounds, Soft and benign, Non-distended Musculoskeletal: No clubbing, No swelling, No contractures Integumentary: No rashes, No breakdown, No significant lesion Neurological: Normal gait, Normal speech, Normal strength at 5/5 x4 extr, Normal tone <FerntnoiaObed henao - Last Filed: 09/10/19 11:52> Assessment And Plan - Plan Assessment Dehydration with hypokalemia complicated with feeding tube use Generalize weakness with multiple falls Atrial fibrillation on chronic anticoagulation therapy History of CVA COPD CHF Plan Dehydration with hypokalemia complicated with feeding tube use: Dehydration results. Continue with dietary recommendations and bolus tube feedings q.i.d.. Tolerating tube feeds so far. Electrolyte protocol in place. Potassium continues low with latest reading of 2.7. This is likely a chronic condition. Will continue replacing electrolytes as needed. Patient will remain on telemetry throughout this hospitalization. Will continue patient's Eliquis for DVT prophylaxis. Anticipate clinical improvement next 24-48 hr, patient will likely benefit from placement at a rehab facility or aggressive home health and physical therapy. Case management working on [facility] placement. Generalize weakness with multiple falls: Fall precautions in place. Will c ontinue to monitor closely. Atrial fibrillation on chronic anticoagulation therapy: Continue patient's Eliquis, discontinue repeat echocardiogram. Previous echocardiogram was of poor quality. Patient would likely benefit from RICO. This would likely have to be done outpatient. History of CVA: Continue patient's Eliquis, monitor patient closely. COPD: Will provide patient with albuterol inhaler as needed. Patient is 95% O2 saturation on room air. Chronic diastolic heart failure without acute exacerbation: Continue patient's Lasix, will keep close eye on patient's fluid status. Echocardiogram done 09/01/2019 was of poor quality but the EF was estimated at 65% with heavily calcified aortic valve. Discharge Plan: [facility]. Case management working home placement. Plan to discharge in: 48 Hours Discharge Plan: [facility] Plan to discharge in: 48 Hours - Code Status/Comfort Care Code Status Assessed: Yes <Obed Orta - Last Filed: 09/10/19 11:52> - Plan Case discussed at length with PA. Agree with evaluation, assessment and plan of care. Case also discuss with web content & social media manager. Need to pursue skilled placement. Await recommendations by physical therapy. Continue to replace low potassium. Continue home medications. Will monitor closely. Time Spent Managing PTS Care (In Minutes): 55 <Luca Morales - Last Filed: 09/10/19 14:49>
[2019-09-10] MEDS ORDERED: POTASSIUM 25 MEQ EFFERV TAB PO ONE (18:00)
[2019-09-10] MEDS: ATORVASTATIN 40 MG TAB FT SCH (21:57)
[2019-09-10] MEDS: buPROPion HCL 100 MG TAB FT SCH (22:01)
[2019-09-11] MEDS ORDERED: POTASSIUM 25 MEQ EFFERV TAB PO ONE ×2 (01:30→08:00)
[2019-09-11 05:23] LABS: Absolute Lymphocytes (CBC) 2.4 K/uL (0.7-4.9); Hematocrit 35.3 % (39.6-49.0); Lymphocytes % 22.2 % (15.3-44.8); MPV 9.6 fL (7.6-11.3); RBC Red Blood Cell Count 4.57 M/uL (4.33-5.43)
[2019-09-11 05:40] LABS: ALT/SGPT 35 U/L (12-78); AST/SGOT 51 U/L (15-37); Albumin 1.9 g/dL (3.4-5.0); Alkaline Phosphatase 125 U/L (45-117); BUN Blood Urea Nitrogen 22 mg/dL (7-18); Bicarbonate 36 mmol/L (21-32); Bilirubin Total 0.8 mg/dL (0.2-1.0); Glucose Level 90 mg/dL (74-106); Potassium 3.8 mmol/L (3.5-5.1); Protein, Total 6.1 g/dL (6.4-8.2); Sodium Level 141 mmol/L (136-145)
[2019-09-11] MEDS: JEVITY 1.5 CAL LIQUID 1,000 ML BOT FT SCH ×5 (08:00→21:45)
[2019-09-11] MEDS: FUROSEMIDE 40 MG TABLET FT SCH ×2 (09:13→17:36)
[2019-09-11] MEDS: ASPIRIN 81 MG CHEWABLE TABLET FT SCH (09:13)
[2019-09-11] MEDS: APIXABAN 5 MG TABLET FT SCH ×2 (09:13→21:44)
[2019-09-11] MEDS: FERROUS SULFATE 325 MG TAB PO SCH ×2 (09:13→21:44)
[2019-09-11] MEDS: AMIODARONE HCL 200 MG TAB FT SCH ×2 (09:13→21:44)
[2019-09-11] MEDS: MIDODRINE HCL 5 MG TABLET FT SCH ×3 (09:13→21:44)
--- NOTE | 2019-09-11 16:23 | P.PN ---
Subjective Date of Service: 09/11/19 Primary Care Provider: out Of [facility] doctor Chief Complaint: AMS, weakness, hypokalemia Subjective: Doing well Physical Examination - Vital Signs Temperature: 98.7 F Blood Pressure: 104/54 Pulse: 80 Respirations: 16 Pulse Ox (%): 97 - Physical Exam General: Alert, Cooperative HEENT: Atraumatic Neck: Supple Respiratory: Clear to auscultation bilaterally, Normal air movement Cardiovascular: Normal pulses, Regular rate/rhythm Neurological: Normal speech, Normal strength at 5/5 x4 extr, Normal tone, Normal affect - Studies Medications List Reviewed: Yes Assessment & Plan Discharge Plan: Other ([facility] facility) Plan to discharge in: 24 Hours Physician Review Additional Text: Assessment Dehydration with hypokalemia complicated with feeding tube use Generalized weakness with multiple falls Atrial fibrillation on chronic anticoagulation therapy History of CVA COPD Chronic diastolic CHF without exacerbation Plan Dehydration with hypokalemia complicated with feeding tube use: Patient do well this time. Hypokalemia resolved. Continue current tube feeds. Continue current medication. Awaiting approval to go to skilled facility to continue rehabilitation. The will discontinue Martinez catheter. Anticipate discharge within the next 24 hr. COVID test negative. I will turn the service over to the hospitalist team tomorrow. I will go over the plan of care with him. Generalized weakness with multiple falls: Fall precautions in place. Will continue to monitor closely. Continue physical therapy. Await discharge to skilled facility. Atrial fibrillation on chronic anticoagulation therapy: Continue patient's Eliquis. Previous echocardiogram was of poor quality. It would is recommended at that time that he would need require a RICO. This can be done as an outpatient. History of CVA: Continue patient's Eliquis, monitor patient closely. COPD: Will provide patient with albuterol inhaler as needed. Continue current medication. Patient is 95% O2 saturation on room air. Chronic diastolic heart failure without acute exacerbation: Continue patient's Lasix, will keep close eye on patient's fluid status. Echocardiogram done 09/01/2019 was of poor quality but the EF was estimated at 65% with heavily calcified aortic valve. Time Spent Managing Pts Care (In Minutes): 55
[2019-09-11] MEDS: buPROPion HCL 100 MG TAB FT SCH (21:44)
[2019-09-11] MEDS: ATORVASTATIN 40 MG TAB FT SCH (21:44)
[2019-09-12 06:02] LABS: BUN Blood Urea Nitrogen 20 mg/dL (7-18); Bicarbonate 39 mmol/L (21-32); Glucose Level 87 mg/dL (74-106); Potassium 3.3 mmol/L (3.5-5.1); Sodium Level 142 mmol/L (136-145)
[2019-09-12] MEDS: JEVITY 1.5 CAL LIQUID 1,000 ML BOT FT SCH ×5 (08:00→20:44)
[2019-09-12] MEDS ORDERED: POTASSIUM 25 MEQ EFFERV TAB PO ONE ×2 (09:00→20:00)
[2019-09-12] MEDS: FUROSEMIDE 40 MG TABLET FT SCH ×2 (09:33→17:00)
[2019-09-12] MEDS: FERROUS SULFATE 325 MG TAB PO SCH ×2 (09:33→20:43)
[2019-09-12] MEDS: ASPIRIN 81 MG CHEWABLE TABLET FT SCH (09:33)
[2019-09-12] MEDS: AMIODARONE HCL 200 MG TAB FT SCH ×2 (09:34→20:43)
[2019-09-12] MEDS: MIDODRINE HCL 5 MG TABLET FT SCH ×3 (09:34→20:44)
[2019-09-12] MEDS: APIXABAN 5 MG TABLET FT SCH ×2 (09:34→20:44)
--- NOTE | 2019-09-12 11:22 | P.PN ---
Subjective Date of Service: 09/12/19 Primary Care Provider: out Of town doctor Chief Complaint: AMS, weakness, hypokalemia Subjective: No new changes, Doing well <Obed Orta - Last Filed: 09/12/19 11:24> Date of Service: 09/12/19 <Hong Preciado - Last Filed: 09/12/19 14:07> Review of Systems 10-point ROS is otherwise unremarkable <FerntoniaObed henao - Last Filed: 09/12/19 11:24> Physical Examination - Vital Signs Temperature: 96.9 F Blood Pressure: 109/57 Pulse: 87 Respirations: 16 Pulse Ox (%): 98 - Physical Exam General: Alert, In no apparent distress, Oriented x3 HEENT: Atraumatic, Normocephalic, PERRLA Respiratory: Clear to auscultation bilaterally, Normal air movement Cardiovascular: No edema, Normal pulses, Regular rate/rhythm, Normal S1 S2 Capillary refill: <2 Seconds Gastrointestinal: Normal bowel sounds, Soft and benign, Non-distended Musculoskeletal: No clubbing, No swelling, No contractures Integumentary: No rashes, No tenderness/swelling, No erythema Neurological: Normal gait, Normal speech, Normal tone, Abnormal strength Other Physical/Emotional Findings: Calm and cooperative - Studies Medications List Reviewed: Yes <FerntoniaObed henao - Last Filed: 09/12/19 11:24> Assessment And Plan - Plan Assessment Dehydration with hypokalemia complicated with feeding tube use: Generalized weakness with multiple falls: Atrial fibrillation on chronic anticoagulation therapy: History of CVA: COPD: Chronic diastolic CHF without exacerbation: Plan Dehydration with hypokalemia complicated with feeding tube use: Patient do well at this time. Potassium of 3.3 this morning. Will replace. Continue current tube feeds. Continue current medication. Awaiting approval to go to skilled facility to continue rehabilitation. Anticipate discharge within the next 24-48 hr. COVID test negative. Generalized weakness with multiple falls: Fall precautions in place. Will continue to monitor closely. Continue physical therapy. Await discharge to skilled facility. Atrial fibrillation on chronic anticoagulation therapy: Continue patient's Eliquis. Previous echocardiogram was of poor quality. Recommendation is for patient to have a RICO. This can be done as an outpatient. History of CVA: Continue patient's Eliquis, monitor patient closely. COPD: Doing well. In no respiratory distress. Continue albuterol inhaler as needed. Continue current medication. Patient is 95% O2 saturation on room air. Chronic diastolic heart failure without acute exacerbation: Continue patient's Lasix, will keep close eye on patient's fluid status. Echocardiogram done 09/01/2019 was of poor quality but the EF was estimated at 65% with heavily calcified aortic valve. [facility] Plan to discharge in: 48 Hours - Code Status/Comfort Care Code Status Assessed: Yes Physician Review Additional Text: Assessment Dehydration with hypokalemia complicated with feeding tube use Generalized weakness with multiple falls Atrial fibrillation on chronic anticoagulation therapy History of CVA COPD Chronic diastolic CHF without exacerbation Plan Dehydration with hypokalemia complicated with feeding tube use: Patient do well this time. Hypokalemia resolved. Continue current tube feeds. Continue current medication. Awaiting approval to go to skilled facility to continue rehabilitation. The will discontinue Martinez catheter. Anticipate discharge within the next 24 hr. COVID test negative. I will turn the service over to the hospitalist team tomorrow. I will go over the plan of care with him. Generalized weakness with multiple falls: Fall precautions in place. Will continue to monitor closely. Continue physical therapy. Await discharge to skilled facility. Atrial fibrillation on chronic anticoagulation therapy: Continue patient's Eliquis. Previous echocardiogram was of poor quality. It would is recommended at that time that he would need require a RICO. This can be done as an outpatient. History of CVA: Continue patient's Eliquis, monitor patient closely. COPD: Will provide patient with albuterol inhaler as needed. Continue current medication. Patient is 95% O2 saturation on room air. Chronic diastolic heart failure without acute exacerbation: Continue patient's Lasix, will keep close eye on patient's fluid status. Echocardiogram done 09/01/2019 was of poor quality but the EF was estimated at 65% with heavily calcified aortic valve. Time Spent Managing PTS Care (In Minutes): 50 <bOed Orta - Last Filed: 09/12/19 11:24> Physician Review Additional Text: Patient was seen and examined and findings were discussed with MAGNUS Agree with the assessment and plan as documented by MAGNUS <Hong Preciado - Last Filed: 09/12/19 14:07>
[2019-09-12] MEDS ORDERED: KCL 20 MEQ/100 mL IVPB 20 MEQ/100 ML BAG IV SCH (17:00)
[2019-09-12] MEDS ORDERED: NA CHLORIDE 0.9% 250 ML ONE (17:20)
[2019-09-12] MEDS: buPROPion HCL 100 MG TAB FT SCH (20:43)
[2019-09-12] MEDS: ATORVASTATIN 40 MG TAB FT SCH (20:43)
[2019-09-13 05:48] LABS: BUN Blood Urea Nitrogen 21 mg/dL (7-18); Bicarbonate 39 mmol/L (21-32); Glucose Level 88 mg/dL (74-106); Potassium 3.8 mmol/L (3.5-5.1); Sodium Level 140 mmol/L (136-145)
[2019-09-13] MEDS: JEVITY 1.5 CAL LIQUID 1,000 ML BOT FT SCH ×5 (08:00→20:29)
[2019-09-13] MEDS ORDERED: POTASSIUM 25 MEQ EFFERV TAB PO ONE (09:00)
[2019-09-13] MEDS: ASPIRIN 81 MG CHEWABLE TABLET FT SCH (09:00)
[2019-09-13] MEDS: MIDODRINE HCL 5 MG TABLET FT SCH ×3 (09:00→20:26)
[2019-09-13] MEDS: FERROUS SULFATE 325 MG TAB PO SCH ×2 (09:00→20:26)
[2019-09-13] MEDS: APIXABAN 5 MG TABLET FT SCH ×2 (09:00→20:27)
[2019-09-13] MEDS: AMIODARONE HCL 200 MG TAB FT SCH ×2 (09:00→20:26)
[2019-09-13] MEDS: FUROSEMIDE 40 MG TABLET FT SCH ×2 (09:00→17:02)
--- NOTE | 2019-09-13 09:41 | P.PN ---
Subjective Date of Service: 09/13/19 Primary Care Provider: out Of town doctor Chief Complaint: AMS, weakness, hypokalemia Subjective: No new changes, Tolerating diet, Doing well <FerntoniajulianoObed - Last Filed: 09/13/19 09:44> Date of Service: 09/13/19 <OzzyHong Ricardo - Last Filed: 09/13/19 11:50> Review of Systems Unremarkable <Obed Orta - Last Filed: 09/13/19 09:44> Physical Examination - Vital Signs Temperature: 97.2 F Blood Pressure: 118/70 Pulse: 104 Respirations: 17 Pulse Ox (%): 95 - Physical Exam General: Alert, In no apparent distress, Oriented x3 HEENT: Atraumatic, Normocephalic, PERRLA Neck: Supple, No Thyromegaly Respiratory: Clear to auscultation bilaterally, Normal air movement Cardiovascular: No edema, Normal pulses, Regular rate/rhythm Capillary refill: <2 Seconds Gastrointestinal: Normal bowel sounds, Soft and benign Musculoskeletal: No swelling, No contractures, No erythema, No tenderness Integumentary: No breakdown, No significant lesion, No tenderness/swelling Neurological: Normal speech, Normal tone Other Physical/Emotional Findings: Calm and cooperative - Studies Medications List Reviewed: Yes <YouObed - Last Filed: 09/13/19 09:44> Assessment And Plan - Plan Assessment Dehydration with hypokalemia complicated with feeding tube use: Generalized weakness with multiple falls: Atrial fibrillation on chronic anticoagulation therapy: History of CVA: COPD: Chronic diastolic CHF without exacerbation: Plan Dehydration with hypokalemia complicated with feeding tube use: Patient do well at this time. Potassium of 3.3 yesterday improved to 3.8 this morning. Will continue to replace as needed. Continue current tube feeds. Patient tolerating tube feeds. Continue current medication. [facility]waiting [facility]. Anticipate discharge within the next 24-48 hr. COVID test negative. Generalized weakness with multiple falls: Fall precautions in place. Will continue to monitor closely. Continue physical therapy. Participating well. Await discharge to skilled facility. Atrial fibrillation on chronic anticoagulation therapy: Continue patient's Eliquis. Previous echocardiogram was of poor quality but estimated EF is 65%. Recommendation is for patient to have a RICO. This can be done as an outpatient. History of CVA: Continue patient's Eliquis, monitor patient closely. COPD: Doing well. In no respiratory distress. Continue albuterol inhaler as needed. Continue current medication. Patient continues at 95% O2 saturation on room air. Chronic diastolic heart failure without acute exacerbation: Continue patient's Lasix, will keep close eye on patient's fluid status. Echocardiogram done 09/01/2019 was of poor quality but the EF was estimated at 65% with heavily calcified aortic valve. Discharge Plan: [facility] Plan to discharge in: 48 Hours - Code Status/Comfort Care Code Status Assessed: Yes Physician Review Additional Text: Patient was seen and examined and findings were discussed with MAGNUS Agree with the assessment and plan as documented by MAGNUS Time Spent Managing PTS Care (In Minutes): 45 <Obed Orta - Last Filed: 09/13/19 09:44>
[2019-09-13] MEDS: buPROPion HCL 100 MG TAB FT SCH (20:26)
[2019-09-13] MEDS: ATORVASTATIN 40 MG TAB FT SCH (20:26)
[2019-09-13 21:46] VITALS: O2SAT 96
[2019-09-14 05:44] LABS: Absolute Lymphocytes (CBC) 1.9 K/uL (0.7-4.9); Basophils % 1.8 % (0-1.3); Hematocrit 34.6 % (39.6-49.0); Lymphocytes % 23.5 % (15.3-44.8); RBC Red Blood Cell Count 4.48 M/uL (4.33-5.43)
[2019-09-14 05:51] LABS: Potassium 3.7 mmol/L (3.5-5.1)
[2019-09-14] MEDS: ASPIRIN 81 MG CHEWABLE TABLET FT SCH (07:56)
[2019-09-14] MEDS: APIXABAN 5 MG TABLET FT SCH (07:56)
[2019-09-14] MEDS: MIDODRINE HCL 5 MG TABLET FT SCH ×2 (07:57→14:22)
[2019-09-14] MEDS: FUROSEMIDE 40 MG TABLET FT SCH ×2 (07:57→16:25)
[2019-09-14] MEDS: FERROUS SULFATE 325 MG TAB PO SCH (07:57)
[2019-09-14] MEDS: AMIODARONE HCL 200 MG TAB FT SCH (07:57)
[2019-09-14] MEDS ORDERED: POTASSIUM 25 MEQ EFFERV TAB PO ONE (09:00)
[2019-09-14] MEDS: JEVITY 1.5 CAL LIQUID 1,000 ML BOT FT SCH ×4 (09:00→17:17)
--- NOTE | 2019-09-14 09:41 | P.PN ---
Subjective Date of Service: 09/14/19 Primary Care Provider: out Of [facility] doctor Chief Complaint: AMS, weakness, hypokalemia Subjective: No new changes, Doing well Review of Systems General: Unremarkable Eyes: Unremarkable ENT: Unremarkable Respiratory: Unremarkable Cardiovascular: Unremarkable Gastrointestinal: Unremarkable Genitourinary: Unremarkable Musculoskeletal: Unremarkable Integumentary: Unremarkable Neurological: Unremarkable Physical Examination - Vital Signs Temperature: 97.5 F Blood Pressure: 102/60 Pulse: 95 Respirations: 18 Pulse Ox (%): 97 - Physical Exam General: Alert, In no apparent distress, Oriented x3 HEENT: Atraumatic, Normocephalic, PERRLA Neck: Supple, Other Respiratory: Clear to auscultation bilaterally, Normal air movement Cardiovascular: No edema, Normal pulses, Regular rate/rhythm, Normal S1 S2 Capillary refill: <2 Seconds Gastrointestinal: Normal bowel sounds, Soft and benign Musculoskeletal: No clubbing, No swelling, No contractures Integumentary: No rashes, No breakdown, No significant lesion Neurological: Normal gait, Normal speech, Normal strength at 5/5 x4 extr, Normal tone Other Physical/Emotional Findings: Calm and cooperative - Studies Medications List Reviewed: Yes Assessment And Plan - Plan Assessment Dehydration with hypokalemia complicated with feeding tube use: Generalized weakness with multiple falls: Atrial fibrillation on chronic anticoagulation therapy: History of CVA: COPD: Chronic diastolic CHF without exacerbation: Plan Dehydration with hypokalemia complicated with feeding tube use: Patient continues do well at this time. Potassium of 3.7 today. Will continue to replace as needed. Continue current tube feeds. Patient tolerating tube feeds. Continue current medication. Awaiting approval to go to senior care facility to continue rehabilitation. Anticipate discharge within the next 24-48 hr. COVID test negative. Generalized weakness with multiple falls: Fall precautions in place. Will continue to monitor closely. Continue physical therapy. Participating well. Await discharge to skilled facility. Atrial fibrillation on chronic anticoagulation therapy: Continue patient's Eliquis. Previous echocardiogram was of poor quality but estimated EF is 65%. Recommendation is for patient to have a RICO. This can be done as an outpatient. Telemetry showing AFib with a rate of 95 beats per min. No change from prior day. History of CVA: Continue patient's Eliquis, monitor patient closely. COPD: Doing well. In no respiratory distress. Continue albuterol inhaler as needed. Continue current medication. Patient continues at 95-96% O2 saturation on room air. Chronic diastolic heart failure without acute exacerbation: Continue patient's Lasix, will keep close eye on patient's fluid status. Echocardiogram done 09/01/2019 was of poor quality but the EF was estimated at 65% with heavily calcified aortic valve. At baseline. [facility] Plan to discharge in: 48 Hours - Code Status/Comfort Care Code Status Assessed: Yes Physician Review Additional Text: Patient was seen and examined and findings were discussed with MAGNUS Agree with the assessment and plan as documented by MAGNUS Time Spent Managing PTS Care (In Minutes): 45
[2019-09-14 16:25] VITALS: BP 132/73
[2019-09-14 17:16] VITALS: TEMP 98.6
--- NOTE | 2019-09-15 07:36 | P.DS ---
Admission Date: 09/08/19 Discharge Date: 09/15/19 Primary Care Provider: out Of town doctor Disposition: TRANSFER TO INPATIENT REHAB Discharge Condition: GOOD Reason for Admission: AMS, weakness, hypokalemia Procedures: CT head- FINDINGS: Mild generalized cortical atrophy. There is moderate decreased white matter attenuation due to chronic microvascular ischemic change. There is no intraparenchymal or extra-axial hemorrhage. No edema, mass or midline shift. No large acute territorial infarction or hyperdense vessel. Normal cerebellum and vermis. Fourth ventricle is midline. Prepontine cisterns are not effaced. Normal sella contents. Intraorbital contents appear normal. Clear paranasal sinuses. Mastoid air cells are minimally opacified bilaterally. Intact skull base and calvarium. Normal s calp soft tissues. IMPRESSION: 1. Mild to moderate senescent brain changes. No intracranial acute finding. 2. Mild bilateral mastoid effusion. Chest x-ray- FINDINGS: Small loculated right pleural effusion without significant change. Right basilar atelectasis is present. The left lung appears clear of acute infiltrate. The heart remains enlarged. Postsurgical changes involve chest Brief History of Present Illness: 63-year-old male with medical history of CHF, atrial fibrillation, hypertension, depression, COPD, CVA presented emergency department with decrease in mentation, multiple falls in the last couple of days. Family states that patient has been admitted twice in the past month for similar symptoms, that he stays in the hospital for a few days we correct his electrolytes, he starts moving around and he is discharged but it keeps happening over and over again. Patient currently alert, oriented to person and place but not to situation. Called daughter on phone, she reports that she would be more comfortable if we could arrange for home health and physical therapy for rehabilitation at that facility. The patient was evaluated in the emergency department found to have hypokalemia as well. When reviewing patient's previous admission note is echocardiogram was deemed to be a poor quality. Patient be admitted for further evaluation and management. Hospital Course: Dehydration with hypokalemia complicated with feeding tube use: Generalized weakness with multiple falls: Atrial fibrillation on chronic anticoagulation therapy: History of CVA: COPD: Chronic diastolic CHF without exacerbation: During this hospital course patient's hypokalemia and dehydration were addressed with IV fluids and potassium replacement. Patient tolerated therapy well and was at baseline on discharge. Patient's potassium was 3.7, blood pressure 128/61, pulse rate of 91, room air saturations of 97% and a temperature of 98.1. He was participating well with PT and was slowly improving. He would still benefit from continued inpatient rehabilitation. Patient was pending insurance approval to be transferred to an inpatient rehabilitation facility. Insurance approved and the er medical technician accepted patient. Patient was discharged late yesterday evening. Patient's Covid test was negative. Vital Signs/Physical Exam: Temp Pulse Resp BP Pulse Ox 98.6 F 106 H 18 132/73 98 09/14/19 16:00 09/14/19 16:25 09/14/19 16:00 09/14/19 16:25 09/14/19 16:00 General: Alert, In no apparent distress, Oriented x3 HEENT: Atraumatic, Normocephalic, PERRLA Neck: Supple, Other (Trachea midline) Respiratory: Clear to auscultation bilaterally, Normal air movement Cardiovascular: No edema, Normal pulses, Regular rate/rhythm Gastrointestinal: Normal bowel sounds, Soft and benign, Non-distended (Peg tube in place) Musculoskeletal: No clubbing, No swelling, No contractures Integumentary: No rashes, No breakdown, No significant lesion, No tenderness/swelling Neurological: Normal speech, Normal tone, Sensation intact Other Physical/Emotional Findings: Calm and cooperative Laboratory Data at Discharge: WBC 8.3 K/uL (4.3-10.9) D 09/14/19 05:15 Hgb 11.3 g/dL (13.6-17.9) L 09/14/19 05:15 Hct 34.6 % (39.6-49.0) L 09/14/19 05:15 Plt Count 254 K/uL (152-406) 09/14/19 05:15 PT 24.0 SECONDS (9.5-12.5) H 09/08/19 02:52 INR 2.06 09/08/19 02:52 APTT 39.1 SECONDS (24.3-36.9) H 09/08/19 02:52 Sodium 142 mmol/L (136-145) 09/14/19 05:15 Potassium 3.7 mmol/L (3.5-5.1) 09/14/19 05:15 BUN 23 mg/dL (7-18) H 09/14/19 05:15 Creatinine 0.95 mg/dL (0.55-1.3) 09/14/19 05:15 Glucose 83 mg/dL (74-106) 09/14/19 05:15 Magnesium 2.0 mg/dL (1.8-2.4) 09/11/19 04:45 Total Bilirubin 0.8 mg/dL (0.2-1.0) 09/11/19 04:45 AST 51 U/L (15-37) H 09/11/19 04:45 ALT 35 U/L (12-78) 09/11/19 04:45 Alkaline Phosphatase 125 U/L (45-117) H 09/11/19 04:45 Lipase 38 U/L (73-393) L 09/08/19 07:00 Home Medications: Apixaban [Eliquis] 5 mg PO BID 03/11/19 Furosemide 40 mg FT BID 03/11/19 Amiodarone HCl [Cordarone*] 200 mg FT BID 08/22/19 Aspirin Chewable [Aspirin Chewable*] 81 mg FT DAILY 08/22/19 Atorvastatin Calcium [Lipitor] 40 mg FT BEDTIME 08/22/19 Ferrous Sulfate [Ferrous Sulfate*] 325 mg FT BID 08/22/19 Midodrine HCl [Proamatine*] 5 mg FT TID 08/22/19 Bupropion HCl [Wellbutrin Sr] 100 mg FT DAILY 08/30/19 Lactulose [Cephulac*] 30 ml PO BID #1800 ml 09/01/19 Potassium Chloride 15 ml FT BID #1000 09/01/19 Metoprolol Tartrate [Lopressor] 100 mg PO BID 09/10/19 Quetiapine [Seroquel*] 0.5 tab FT DAILY 09/10/19 Tramadol HCl [Ultram] 50 mg FT BID PRN 09/10/19 Trazodone [Desyrel*] 50 mg FT BEDTIME PRN 09/10/19 metOLazone [Metolazone] 2 tab FT DAILY 09/10/19 Diet: Tube feed diet Activity: Fall precautions Time spent managing pt's care (in minutes): 45
== END 2019-09-14 19:25 | DRG 641 ==
LOC: ER 02:32 → ERHOLD 09:18 → 4TH 12:27 → 2ND 09-11 18:10
PROVIDERS: ADMIT Family Medicine; ATTEND Family Medicine
DX: E87.6 Hypokalemia (principal); I50.32 Chronic diastolic (congestive) heart failure; E86.0 Dehydration; I11.0 Hypertensive heart disease with heart failure; I48.91 Unspecified atrial fibrillation; J44.9 Chronic obstructive pulmonary disease, unspecified; R53.1 Weakness; Z86.73 Personal history of transient ischemic attack (TIA), and cerebral infarction without residual deficits; Z95.1 Presence of aortocoronary bypass graft; Z79.01 Long term (current) use of anticoagulants; Z91.81 History of falling; Z93.1 Gastrostomy status; Z79.82 Long term (current) use of aspirin; Z79.899 Other long term (current) drug therapy; Z11.59 Encounter for screening for other viral diseases
CPT/HCPCS: 36415; 51702; 70450; 71045; 80048; 80053; 80076; 81003; 82140; 82550; 82553; 82947; 83690; 83735; 84132; 84439; 84443; 84484; 85025; 85610; 85730; 93005; 96365; 97112; 97116; 97161; 97530; 99285; J3480; J7030; J7050; U0002

== ENCOUNTER 2019-10-08 06:15 | Inpatient (IN) | payer OTHER ==
--- OUTSIDE RECORDS SUMMARY | 2019-10-08 06:22 | XMS REPORT | Clinical Summary ---
:1955 Author Organization [facility] Address [address] [place] [address] Care Team Providers Name Role Phone Pcp, [...] MD Ammy Simple chronic bronchitis ([facility]); [place] Drake History of alcohol use disorder; MD Leonor Severe protein- calorie malnutrition (HCC); Metabolic alkal osis; Elevated liver function tests 05/30/2019 Telephone Critical Care Petrona Fountain, Ijrb-[id number] Call Medicine 05/08/2019 Hospital Encounter Radiology Manoje, [place] Pleural effusion Nia 05/08/2019 Outside Orders Central Scheduling Manoje, [place] Pleura l effusion Nia (Primary Dx) 04/23/2019 Travel 04/14/2019 Surgery Fernando Andrews THORACOSCOPY MD Bob (VATS),DECORTIC ATION 04/14/2019 Anesthesia Event Elham Holguin MD 04/11/2019 Anesthesia Event Gastroenterology Quiana Chavez, CUSTODIAN 04/11/2019 Surgery Gastroenterology Gabriel Peña UPPER END OSCOPY,PEG MD Kadeem 03/20/2019 Orders Only General Internal Medicine 03/19/2019 Hospital Encounter Cardiology Robb, Hypovolem ic shock (HCC) (Primary Dx); - Britton Acute hypercapn ic respiratory failure (HCC); 04/25/2019 MD Johnnie Cerebrovascular accident (CVA), unspecif ied mechanism ([facility]); Tomer Lora Acute metaboli c encephalopathy; MD Evelyn Longstanding persistent atrial fibrillat ion; Laya Tabares, Moderate pr otein-calorie malnutrition (HCC); Jerald Whitney, Acute on chr onic diastolic CHF (congestive heart failure), NYHA class 4 ([facility]); Atrial fibrillation with RVR ([facility]); Jean Marie Leukocytosis, u nspecified type; Britton Other specified hypotension; MD Irineo Chronic pleural effusion; Areli Hong MD Bilateral pleural effusion; Nalam, Yahaira Acute respirato ry failure with hypoxia and hypercapnia ([facility]); MD Sangita Aspiration pneumonia, unspecified aspira tion pneumonia type, unspecified laterality, unspecified part of lung ([facility]); Bharti Kamara MD Acute on chronic respiratory [...] Documentation Internal Medicine Inna Bailey MD after 10/07/2018 Family History Medical History Relation Name Comments [...] containing 4 or more times a w menominee 01/21/2019 alcohol? How many drinks containing alcohol [...] - 1961 PPSV23) INFLUENZA VACCINE (#1) 2019 LIPID PANEL 03/20/2022 03/20/2019 Procedures Procedure Name Priority Date/Time Associated Comments [...] RHYTHM STRIP - SCAN 05/01/2019 5:29 PM HEAD WAITRESS RHYTHM STRIP - SCAN 04/28/2019 3:01 PM HEAD WAITRESS RHYTHM STRIP - SCAN 04/28/2019 3:01 PM HEAD WAITRESS XR CHEST 1 VIEW Routine 04/25/2019 6:45 Results for PORTABLE/BEDSIDE AM HEAD WAITRESS this proced ure are in the results section. CBC W/PLT COUNT & AUTO Routine 04/25/2019 4:52 R esults for DIFFERENTIAL AM HEAD WAITRESS this procedure are in the results section. PHOSPHORUS Routine 04/25/2019 4:52 Results for AM HEAD WAITRESS this procedure are in the results section. MAGNESIUM Routine 04/25/2019 4:52 Results for AM HEAD WAITRESS this procedure are in the results section. CBC W/PLT COUNT & AUTO Routine 04/25/2019 4:52 R esults for DIFFERENTIAL AM HEAD WAITRESS this procedure are in the results section. BASIC METABOLIC PANEL (7) Routine 04/25/2019 4:52 Results for AM HEAD WAITRESS this procedure are in the results section. XR CHEST 1 VIEW Routine 04/24/2019 6:56 Results for PORTABLE/BEDSIDE AM HEAD WAITRESS this proced ure are in the results section. CBC W/PLT COUNT & AUTO Routine 04/24/2019 4:11 R esults for DIFFERENTIAL AM HEAD WAITRESS this procedure are in the results section. PHOSPHORUS Routine 04/24/2019 4:11 Results for AM HEAD WAITRESS this procedure are in the results section. MAGNESIUM Routine 04/24/2019 4:11 Results for AM HEAD WAITRESS this procedure are in the results section. CBC W/PLT COUNT & AUTO Routine 04/24/2019 4:11 R esults for DIFFERENTIAL AM HEAD WAITRESS this procedure are in the results section. BASIC METABOLIC PANEL (7) Routine 04/24/2019 4:11 Results for AM HEAD WAITRESS this procedure are in the results section. XR CHEST 1 VIEW Routine 04/23/2019 1:57 Results for PORTABLE/BEDSIDE PM HEAD WAITRESS this proced ure are in the results section. XR CHEST 1 VIEW Routine 04/23/2019 6:31 Results for PORTABLE/BEDSIDE AM HEAD WAITRESS this proced ure are in the results section. CBC W/PLT COUNT & AUTO Routine 04/23/2019 3:53 R esults for DIFFERENTIAL AM HEAD WAITRESS this procedure are in the results section. PREALBUMIN Routine 04/23/2019 3:53 Results for AM HEAD WAITRESS this procedure are in the results section. PHOSPHORUS Routine 04/23/2019 3:53 Results for AM HEAD WAITRESS this procedure are in the results section. MAGNESIUM Routine 04/23/2019 3:53 Results for AM HEAD WAITRESS this procedure are in the results section. CBC W/PLT COUNT & AUTO Routine 04/23/2019 3:53 R esults for DIFFERENTIAL AM HEAD WAITRESS this procedure are in the results section. BASIC METABOLIC PANEL (7) Routine 04/23/2019 3:53 Results for AM HEAD [facility]RESS this procedure are in the results section. XR ESOPH SWALLOW FUNCTION Routine 04/22/2019 2:30 Results for W/CINE VIDEO PM HEAD [facility]RESS this procedure are in the results section. XR CHEST 1 VIEW Routine 04/22/2019 5:49 Results for PORTABLE/BEDSIDE AM HEAD WAITRESS this proced ure are in the results section. PHOSPHORUS Routine 04/22/2019 4:02 Results for AM HEAD WAITRESS this procedure are in the results section. MAGNESIUM Routine 04/22/2019 4:02 Results for AM HEAD WAITRESS this procedure are in the results section. BASIC METABOLIC PANEL (7) Routine 04/22/2019 4:02 Results for AM HEAD WAITRESS this procedure are in the results section. CBC W/PLT COUNT & AUTO Routine 04/22/2019 3:23 R esults for DIFFERENTIAL AM HEAD WAITRESS this procedure are in the results section. CBC W/PLT COUNT & AUTO Routine 04/22/2019 3:23 R esults for DIFFERENTIAL AM HEAD WAITRESS this procedure are in the results section. MAGNESIUM Routine 04/21/2019 12:23 Results for PM HEAD WAITRESS this procedure are in the results section. BASIC METABOLIC PANEL (7) Routine 04/21/2019 12:23 Results for PM HEAD WAITRESS this procedure are in the results section. XR CHEST 1 VIEW Routine 04/21/2019 3:59 Results for PORTABLE/BEDSIDE AM HEAD WAITRESS this proced ure are in the results section. PHOSPHORUS Routine 04/21/2019 3:43 Results for AM HEAD WAITRESS this procedure are in the results section. MAGNESIUM Routine 04/21/2019 3:43 Results for AM HEAD WAITRESS this procedure are in the results section. BASIC METABOLIC PANEL (7) Routine 04/21/2019 3:43 Results for AM HEAD WAITRESS this procedure are in the results section. CBC W/PLT COUNT & AUTO Routine 04/21/2019 3:42 R esults for DIFFERENTIAL AM HEAD WAITRESS this procedure are in the results section. CBC W/PLT COUNT & AUTO Routine 04/21/2019 3:42 R esults for DIFFERENTIAL AM HEAD WAITRESS this procedure are in the results section. CBC W/PLT COUNT & AUTO Routine 04/20/2019 3:19 R esults for DIFFERENTIAL PM HEAD WAITRESS this procedure are in the results section. MAGNESIUM Routine 04/20/2019 3:19 Results for PM HEAD WAITRESS this procedure are in the results section. CBC W/PLT COUNT & AUTO Routine 04/20/2019 3:19 R esults for DIFFERENTIAL PM HEAD WAITRESS this procedure are in the results section. PHOSPHORUS Routine 04/20/2019 3:19 Results for PM HEAD WAITRESS this procedure are in the results section. BASIC METABOLIC PANEL (7) Routine 04/20/2019 3:19 Results for PM HEAD WAITRESS this procedure are in the results section. POCT-GLUCOSE METER Routine 04/20/2019 12:17 Resul ts for PM HEAD WAITRESS this procedure are in the results section. XR CHEST 1 VIEW Routine 04/20/2019 5:50 Results for PORTABLE/BEDSIDE AM HEAD WAITRESS this proced ure are in the results section. CBC W/PLT COUNT & AUTO Routine 04/20/2019 3:21 R esults for DIFFERENTIAL AM HEAD WAITRESS this procedure are in the results section. MAGNESIUM Routine 04/20/2019 3:21 Results for AM HEAD WAITRESS this procedure are in the results section. CBC W/PLT COUNT & AUTO Routine 04/20/2019 3:21 R esults for DIFFERENTIAL AM HEAD WAITRESS this procedure are in the results section. PHOSPHORUS Routine 04/20/2019 3:21 Results for AM HEAD WAITRESS this procedure are in the results section. BASIC METABOLIC PANEL (7) Routine 04/20/2019 3:21 Results for AM HEAD WAITRESS this procedure are in the results section. POCT-GLUCOSE METER Routine 04/20/2019 12:07 Resul ts for AM HEAD WAITRESS this procedure are in the results section. TRANSFUSION SERVICE 04/19/2019 6:02 REPORT - SCAN PM HEAD WAITRESS CBC W/PLT COUNT & AUTO Routine 04/19/2019 5:34 R esults for DIFFERENTIAL PM HEAD WAITRESS this procedure are in the results section. MAGNESIUM Routine 04/19/2019 5:34 Results for PM HEAD WAITRESS this procedure are in the results section. CBC W/PLT COUNT & AUTO Routine 04/19/2019 5:34 R esults for DIFFERENTIAL PM HEAD WAITRESS this procedure are in the results section. PHOSPHORUS Routine 04/19/2019 5:34 Results for PM HEAD WAITRESS this procedure are in the results section. BASIC METABOLIC PANEL (7) Routine 04/19/2019 5:34 Results for PM HEAD WAITRESS this procedure are in the results section. XR CHEST 1 VIEW Routine 04/19/2019 5:48 Results for PORTABLE/BEDSIDE AM HEAD WAITRESS this proced ure are in the results section. CBC W/PLT COUNT & AUTO Routine 04/19/2019 3:26 R esults for DIFFERENTIAL AM HEAD WAITRESS this procedure are in the results section. MAGNESIUM Routine 04/19/2019 3:26 Results for AM HEAD WAITRESS this procedure are in the results section. CBC W/PLT COUNT & AUTO Routine 04/19/2019 3:26 R esults for DIFFERENTIAL AM HEAD WAITRESS this procedure are in the results section. PHOSPHORUS Routine 04/19/2019 3:26 Results for AM HEAD WAITRESS this procedure are in the results section. BASIC METABOLIC PANEL (7) Routine 04/19/2019 3:26 Results for AM HEAD WAITRESS this procedure are in the results section. POCT-GLUCOSE METER Routine 04/19/2019 12:23 Resul ts for AM HEAD WAITRESS this procedure are in the results section. PREPARE LEUKO-REDUCED RBC Routine 04/18/2019 11:54 Results for PM HEAD WAITRESS this procedure are in the results section. POCT-GLUCOSE METER Routine 04/18/2019 6:27 Resul ts for PM HEAD WAITRESS this procedure are in the results section. TRANSFUSION SERVICE 04/18/2019 6:02 REPORT - SCAN PM [facility] WA[facility] CBC W/PLT COUNT & AUTO Routine 04/18/2019 6:02 R esults for DIFFERENTIAL PM HEAD WAITRESS this procedure are in the results section. MAGNESIUM Routine 04/18/2019 6:02 Results for PM HEAD WAITRESS this procedure are in the results section. CBC W/PLT COUNT & AUTO Routine 04/18/2019 6:02 R esults for DIFFERENTIAL PM HEAD WAITRESS this procedure are in the results section. PHOSPHORUS Routine 04/18/2019 6:02 Results for PM HEAD WAITRESS this procedure are in the results section. BASIC METABOLIC PANEL (7) Routine 04/18/2019 6:02 Results for PM HEAD WAITRESS this procedure are in the results section. POCT-GLUCOSE METER Routine 04/18/2019 11:46 Resul ts for AM HEAD WAITRESS this procedure are in the results section. POCT-GLUCOSE METER Routine 04/18/2019 5:54 Resul ts for AM HEAD WAITRESS this procedure are in the results section. XR CHEST 1 VIEW Routine 04/18/2019 5:36 Results for PORTABLE/BEDSIDE AM HEAD WAITRESS this proced ure are in the results section. BLOOD GAS, ARTERIAL Routine 04/18/2019 2:37 Resu lts for AM HEAD WAITRESS this procedure are in the results section. CBC W/PLT COUNT & AUTO Routine 04/18/2019 2:36 R esults for DIFFERENTIAL AM HEAD WAITRESS this procedure are in the results section. MAGNESIUM Routine 04/18/2019 2:36 Results for AM HEAD WAITRESS this procedure are in the results section. CBC W/PLT COUNT & AUTO Routine 04/18/2019 2:36 R esults for DIFFERENTIAL AM HEAD WAITRESS this procedure are in the results section. PHOSPHORUS Routine 04/18/2019 2:36 Results for AM HEAD WAITRESS this procedure are in the results section. BASIC METABOLIC PANEL (7) Routine 04/18/2019 2:36 Results for AM HEAD WAITRESS this procedure are in the results section. POCT-GLUCOSE METER Routine 04/18/2019 12:19 Resul ts for AM HEAD WAITRESS this procedure are in the results section. POCT-GLUCOSE METER Routine 04/17/2019 6:30 Resul ts for PM HEAD WAITRESS this procedure are in the results section. TRANSFUSION SERVICE 04/17/2019 5:52 REPORT - SCAN PM HEAD WAITRESS BLOOD GAS, ARTERIAL Routine 04/17/2019 4:17 Resu lts for PM HEAD WAITRESS this procedure are in the results section. CBC W/PLT COUNT & AUTO Routine 04/17/2019 4:16 R esults for DIFFERENTIAL PM HEAD WAITRESS this procedure are in the results section. MAGNESIUM Routine 04/17/2019 4:16 Results for PM HEAD WAITRESS this procedure are in the results section. CBC W/PLT COUNT & AUTO Routine 04/17/2019 4:16 R esults for DIFFERENTIAL PM HEAD WAITRESS this procedure are in the results section. PHOSPHORUS Routine 04/17/2019 4:16 Results for PM HEAD WAITRESS this procedure are in the results section. BASIC METABOLIC PANEL (7) Routine 04/17/2019 4:16 Results for PM HEAD WAITRESS this procedure are in the results section. POCT-GLUCOSE METER Routine 04/17/2019 1:14 Resul ts for PM HEAD WAITRESS this procedure are in the results section. TRANSFUSE LEUKO-REDUCED Routine 04/17/2019 11:41 RED BLOOD CELLS AM HEAD WAITRESS XR CHEST 1 VIEW Routine 04/17/2019 6:07 Results for PORTABLE/BEDSIDE AM HEAD WAITRESS this proced ure are in the results section. POCT-GLUCOSE METER Routine 04/17/2019 5:32 Resul ts for AM HEAD WAITRESS this procedure are in the results section. CBC W/PLT COUNT & AUTO Routine 04/17/2019 3:30 R esults for DIFFERENTIAL AM HEAD WAITRESS this procedure are in the results section. MAGNESIUM Routine 04/17/2019 3:30 Results for AM HEAD WAITRESS this procedure are in the results section. APTT Routine 04/17/2019 3:30 Results for AM HEAD WA[facility]RESS this procedure are in the results section. PROTHROMBIN TIME/INR Routine 04/17/2019 3:30 Res ults for AM HEAD WA[facility]RESS this procedure are in the results section. CBC W/PLT COUNT & AUTO Routine 04/17/2019 3:30 R esults for DIFFERENTIAL AM HEAD WA[facility]RESS this procedure are in the results section. PHOSPHORUS Routine 04/17/2019 3:30 Results for AM HEAD WAITRESS this procedure are in the results section. BASIC METABOLIC PANEL (7) Routine 04/17/2019 3:30 Results for AM HEAD WAITRESS this procedure are in the results section. BLOOD GAS, ARTERIAL Routine 04/17/2019 3:30 Resu lts for AM HEAD WAITRESS this procedure are in the results section. HEMOGLOBIN AND HEMATOCRIT STAT 04/17/2019 12:27 Results for AM HEAD [facility] this procedure are in the results section. POCT-GLUCOSE METER Routine 04/17/2019 12:10 Resul ts for AM HEAD [facility] this procedure are in the results section. PREPARE LEUKO-REDUCED RBC STAT 04/16/2019 11:54 Results for PM HEAD WAITRESS this procedure are in the results section. PREPARE LEUKO-REDUCED RBC STAT 04/16/2019 11:54 Results for PM HEAD WAITRESS this procedure are in the results section. PREPARE LEUKO-REDUCED RBC STAT 04/16/2019 11:54 Results for PM HEAD WAITRESS this procedure are in the results section. PREPARE PLASMA STAT 04/16/2019 11:54 Results f or PM HEAD WA[facility]RESS this procedure are in the results section. PREPARE CRYOPRECIPITATE Routine 04/16/2019 11:54 Results for PM HEAD WAITRESS this procedure are in the results section. PREPARE LEUKO-REDUCED RBC Routine 04/16/2019 11:54 Results for PM HEAD WAITRESS this procedure are in the results section. PREPARE LEUKO-REDUCED RBC Routine 04/16/2019 11:54 Results for PM HEAD WAITRESS this procedure are in the results section. PERIPHERAL VASCULAR 04/16/2019 9:23 REPORT - SCAN PM [facility] POCT-GLUCOSE METER Routine 04/16/2019 6:48 Resul ts for PM HEAD WA[facility] this procedure are in the results section. TRANSFUSION SERVICE 04/16/2019 5:52 REPORT - SCAN PM HEAD [facility] CBC W/PLT COUNT & AUTO Routine 04/16/2019 4:02 R esults for DIFFERENTIAL PM HEAD [facility] this procedure are in the results section. BASIC METABOLIC PANEL (7) Routine 04/16/2019 4:02 Results for PM HEAD WAITRESS this procedure are in the results section. CBC W/PLT COUNT & AUTO Routine 04/16/2019 4:02 R esults for DIFFERENTIAL PM HEAD WAITRESS this procedure are in the results section. PHOSPHORUS Routine 04/16/2019 4:02 Results for PM HEAD WAITRESS this procedure are in the results section. BLOOD GAS, ARTERIAL Routine 04/16/2019 4:02 Resu lts for PM HEAD WAITRESS this procedure are in the results section. POCT-GLUCOSE METER Routine 04/16/2019 1:24 Resul ts for PM HEAD WAITRESS this procedure are in the results section. HEMOGLOBIN AND HEMATOCRIT Routine 04/16/2019 9:09 Results for AM HEAD WA[facility]RESS this procedure are in the results section. XR CHEST 1 VIEW Routine 04/16/2019 3:46 Results for PORTABLE/BEDSIDE AM HEAD WA[facility]RESS this proced ure are in the results section. CBC W/PLT COUNT & AUTO Routine 04/16/2019 3:28 R esults for DIFFERENTIAL AM HEAD WAITRESS this procedure are in the results section. CALCIUM, IONIZED STAT 04/16/2019 3:28 Results for AM HEAD WA[facility]RESS this procedure are in the results section. APTT Routine 04/16/2019 3:28 Results for AM HEAD WAITRESS this procedure are in the results section. PROTHROMBIN TIME/INR Routine 04/16/2019 3:28 Res ults for AM HEAD WAITRESS this procedure are in the results section. CBC W/PLT COUNT & AUTO Routine 04/16/2019 3:28 R esults for DIFFERENTIAL AM HEAD WAITRESS this procedure are in the results section. PHOSPHORUS Routine 04/16/2019 3:28 Results for AM HEAD WAITRESS this procedure are in the results section. BASIC METABOLIC PANEL (7) Routine 04/16/2019 3:28 Results for AM HEAD WAITRESS this procedure are in the results section. MAGNESIUM Routine 04/16/2019 3:28 Results for AM HEAD WAITRESS this procedure are in the results section. BLOOD GAS, ARTERIAL Routine 04/16/2019 3:24 Resu lts for AM HEAD WAITRESS this procedure are in the results section. TRANSFUSE LEUKO-REDUCED Routine 04/16/2019 1:54 RED BLOOD CELLS AM HEAD WAITRESS POCT-GLUCOSE METER Routine 04/15/2019 11:14 Resul ts for PM HEAD WAITRESS this procedure are in the results section. CBC W/PLT COUNT & AUTO Routine 04/15/2019 10:51 R esults for DIFFERENTIAL PM HEAD WAITRESS this procedure are in the results section. CBC W/PLT COUNT & AUTO Routine 04/15/2019 10:51 R esults for DIFFERENTIAL PM HEAD WAITRESS this procedure are in the results section. TRANSFUSE LEUKO-REDUCED Routine 04/15/2019 9:45 RED BLOOD CELLS PM [facility] TRANSFUSION SERVICE 04/15/2019 6:08 REPORT - SCAN PM [facility] US GUIDE, VASCULAR ACCESS Routine 04/15/2019 5:48 Hypovolemic shock Results for PM HEAD [facility]RESS (HCC) this procedure are in the results section. INSERT NON-TUNNEL CV CATH Routine 04/15/2019 5:48 Hypovolemic shock Results for PM HEAD WAITRESS (HCC) this procedure are in the results section. BLOOD GAS, ARTERIAL Routine 04/15/2019 4:04 Resu lts for PM HEAD WAITRESS this procedure are in the results section. CBC W/PLT COUNT & AUTO Routine 04/15/2019 4:03 R esults for DIFFERENTIAL PM HEAD WAITRESS this procedure are in the results section. CBC W/PLT COUNT & AUTO Routine 04/15/2019 4:03 R esults for DIFFERENTIAL PM HEAD WAITRESS this procedure are in the results section. PHOSPHORUS Routine 04/15/2019 4:03 Results for PM HEAD WAITRESS this procedure are in the results section. BASIC METABOLIC PANEL (7) Routine 04/15/2019 4:03 Results for PM HEAD WAITRESS this procedure are in the results section. TRANSFUSE LEUKO-REDUCED STAT 04/15/2019 2:21 RED BLOOD CELLS PM HEAD WAITRESS XR CHEST 1 VIEW STAT 04/15/2019 2:01 Results for PORTABLE/BEDSIDE PM HEAD [facility] this proced ure are in the results section. VENOUS DOPPLER ARM, LEFT CHRISSIE 04/15/2019 11:30 Results for AM HEAD [facility] this procedure are in the results section. THROMBOELASTOGRAPH (TEG) STAT 04/15/2019 11:28 Results for AM [facility] this procedure are in the results section. POCT-GLUCOSE METER Routine 04/15/2019 11:22 Resul ts for AM [facility] this procedure are in the results section. TRANSFUSE PLASMA Routine 04/15/2019 11:03 AM [facility] ECG 12-LEAD Routine 04/15/2019 10:36 AM [facility] Procedure Note - Interface, External Ris In - 04/15/2019 10:41 AM [facility] Ventricular Rate 51 BPM Atrial Rate 51 BPM QRS Duration 118 ms Q-T Interval 492 ms QTC Calculation(Bazett) 453 ms P [place] 63 degrees R [place] 23 degrees T [place] 5 degrees Sinus bradycardia Septal infarct , age undeter mined Abnormal ECG When compared with ECG of 12:19, Septal infarct is now Presen t Nonspecific T wave abnormali ty now evident in Lateral leads ECG 12-LEAD STAT 04/15/2019 10:36 AM Results for this [facility] procedure are i n the results section. ECG 12-LEAD Routine 04/15/2019 10:35 AM Results for this [facility] procedure are i n the results section. TRANSFUSE Routine 04/15/2019 9:22 AM CRYOPRECIPITATE HEAD WAITRESS CBC W/PLT COUNT & AUTO STAT 04/15/2019 8:52 AM Results for this DIFFERENTIAL HEAD WAITRESS procedure are i n the results section. CBC W/PLT COUNT & AUTO STAT 04/15/2019 8:52 AM Results for this DIFFERENTIAL HEAD WAITRESS procedure are i n the results section. TRANSFUSE LEUKO-REDUCED Routine 04/15/2019 7:56 AM RED BLOOD CELLS HEAD WAITRESS TRANSFUSE LEUKO-REDUCED Routine 04/15/2019 6:24 AM RED BLOOD CELLS HEAD WAITRESS XR CHEST 1 VIEW Routine 04/15/2019 4:38 AM Resul ts for this PORTABLE/BEDSIDE HEAD WA[facility]RESS procedure a re in the results section. BLOOD GAS, ARTERIAL Routine 04/15/2019 4:07 AM R esults for this HEAD WA[facility]RESS procedure are i n the results section. CBC W/PLT COUNT & AUTO Routine 04/15/2019 4:05 AM Results for this DIFFERENTIAL HEAD WAITRESS procedure are i n the results section. CBC W/PLT COUNT & AUTO Routine 04/15/2019 4:05 AM Results for this DIFFERENTIAL HEAD WA[facility]RESS procedure are i n the results section. CALCIUM, IONIZED Routine 04/15/2019 4:05 AM Resu lts for this HEAD WA[facility] procedure are i n the results section. LACTIC ACID, ARTERIAL Routine 04/15/2019 4:05 AM Results for this [facility] procedure are i n the results section. PHOSPHORUS Routine 04/15/2019 4:05 AM Results for this [facility] procedure are i n the results section. BASIC METABOLIC PANEL Routine 04/15/2019 4:05 AM Results for this (7) HEAD WAITRESS procedure are i n the results section. MAGNESIUM Routine 04/15/2019 4:05 AM Results for this HEAD WA[facility]RESS procedure are i n the results section. TRANSFUSE LEUKO-REDUCED Routine 04/15/2019 3:39 AM RED BLOOD CELLS HEAD WAITRESS TRANSFUSE LEUKO-REDUCED Routine 04/15/2019 2:17 AM RED BLOOD CELLS HEAD WAITRESS FIBRINOGEN Routine 04/15/2019 1:58 AM Results for this [facility] procedure are i n the results section. PT/APTT STAT 04/15/2019 1:58 AM Results for this [facility] procedure are i n the results section. APTT Routine 04/15/2019 1:58 AM Results for this [facility] procedure are i n the results section. PROTHROMBIN TIME/INR Routine 04/15/2019 1:58 AM Results for this [facility] procedure are i n the results section. POCT-GLUCOSE METER Routine 04/15/2019 12:23 AM Re sults for this [facility] procedure are i n the results section. CBC W/PLT COUNT & AUTO Routine 04/15/2019 12:07 AM Results for this DIFFERENTIAL HEAD WAITRESS procedure are i n the results section. CBC W/PLT COUNT & AUTO Routine 04/15/2019 12:07 AM Results for this DIFFERENTIAL [facility] WA[facility] procedure are i n the results section. CORTISOL Routine 04/15/2019 12:07 AM Results for this [facility] procedure are i n the results section. XR CHEST 1 VIEW STAT 04/14/2019 8:32 PM Resul ts for this PORTABLE/BEDSIDE HEAD WAITRESS procedure a re in the results section. BLOOD GAS, ARTERIAL STAT 04/14/2019 8:00 PM R esults for this HEAD [facility]RESS procedure are i n the results section. CALCIUM, IONIZED Routine 04/14/2019 7:57 PM Resu lts for this HEAD WA[facility]RESS procedure are i n the results section. PHOSPHORUS Routine 04/14/2019 7:57 PM Results for this HEAD WA[facility]RESS procedure are i n the results section. MAGNESIUM Routine 04/14/2019 7:57 PM Results for this HEAD WA[facility]RESS procedure are i n the results section. AFB CULTURE + SMEAR Routine 04/14/2019 6:48 PM R esults for this (NON-SPUTUM) HEAD WAITRESS procedure are i n the results section. FUNGUS CULTURE + SMEAR Routine 04/14/2019 6:48 PM Results for this [facility] procedure are i n the results section. SPIN/CONCENTRATION Routine 04/14/2019 6:48 PM Re sults for this CHARGE HEAD WAITRESS procedure are i n the results section. BRONCHIAL CULTURE + GRAM Routine 04/14/2019 6:48 PM Results for this STAIN HEAD WAITRESS procedure are i n the results section. HGB/HCT (H&H) - STAT LAB STAT 04/14/2019 5:49 PM Results for this HEAD WAITRESS procedure are i n the results section. GLUCOSE-STAT LAB STAT 04/14/2019 5:49 PM Resu lts for this HEAD WAITRESS procedure are i n the results section. POTASSIUM-STAT LAB STAT 04/14/2019 5:49 PM Re sults for this HEAD WAITRESS procedure are i n the results section. SODIUM NA-STAT LAB STAT 04/14/2019 5:49 PM Re sults for this HEAD WAITRESS procedure are i n the results section. BLOOD GAS, ARTERIAL STAT 04/14/2019 5:49 PM R esults for this HEAD WAITRESS procedure are i n the results section. CALCIUM, IONIZED STAT 04/14/2019 5:49 PM Resu lts for this HEAD WAITRESS procedure are i n the results section. RRL CRITICAL LABS STAT 04/14/2019 5:49 PM Res ults for this (ABG,NA,K,H&H,GLUCOSE) HEAD WAITRESS proce dure are in the results section. SURGICALLY OBTAINED Routine 04/14/2019 5:15 PM R esults for this CULTURE + GRAM STAIN HEAD WAITRESS procedu re are in the results section. FUNGUS CULTURE + SMEAR Routine 04/14/2019 5:15 PM Results for this HEAD WA[facility]RESS procedure are i n the results section. ANAEROBIC CULTURE Routine 04/14/2019 5:15 PM Res ults for this HEAD WA[facility]RESS procedure are i n the results section. AFB CULTURE + SMEAR Routine 04/14/2019 5:15 PM R esults for this (NON-SPUTUM) HEAD WAITRESS procedure are i n the results section. SURGICALLY OBTAINED Routine 04/14/2019 5:10 PM R esults for this CULTURE + GRAM STAIN HEAD WAITRESS procedu re are in the results section. FUNGUS CULTURE + SMEAR Routine 04/14/2019 5:10 PM Results for this HEAD WAITRESS procedure are i n the results section. ANAEROBIC CULTURE Routine 04/14/2019 5:10 PM Res ults for this HEAD WAITRESS procedure are i n the results section. AFB CULTURE + SMEAR Routine 04/14/2019 5:10 PM R esults for this (NON-SPUTUM) HEAD WAITRESS procedure are i n the results section. FUNGUS CULTURE + SMEAR Routine 04/14/2019 5:08 PM Results for this HEAD WA[facility]RESS procedure are i n the results section. SURGICALLY OBTAINED Routine 04/14/2019 5:08 PM R esults for this CULTURE + GRAM STAIN HEAD WAITRESS procedu re are in the results section. ANAEROBIC CULTURE Routine 04/14/2019 5:08 PM Res ults for this HEAD WAITRESS procedure are i n the results section. AFB CULTURE + SMEAR Routine 04/14/2019 5:08 PM R esults for this (NON-SPUTUM) HEAD WAITRESS procedure are i n the results section. SURGICALLY OBTAINED Routine 04/14/2019 5:00 PM R esults for this CULTURE + GRAM STAIN HEAD WAITRESS procedu re are in the results section. FUNGUS CULTURE + SMEAR Routine 04/14/2019 5:00 PM Results for this HEAD WAITRESS procedure are i n the results section. ANAEROBIC CULTURE Routine 04/14/2019 5:00 PM Res ults for this HEAD WAITRESS procedure are i n the results section. AFB CULTURE + SMEAR Routine 04/14/2019 5:00 PM R esults for this (NON-SPUTUM) HEAD WAITRESS procedure are i n the results section. TISSUE EXAM AP Routine 04/14/2019 4:54 PM Results for this HEAD WAITRESS procedure are i n the results section. HGB/HCT (H&H) - STAT LAB STAT 04/14/2019 4:30 PM Results for this HEAD WA[facility]RESS procedure are i n the results section. GLUCOSE-STAT LAB STAT 04/14/2019 4:30 PM Resu lts for this HEAD WAITRESS procedure are i n the results section. POTASSIUM-STAT LAB STAT 04/14/2019 4:30 PM Re sults for this HEAD WA[facility]RESS procedure are i n the results section. SODIUM NA-STAT LAB STAT 04/14/2019 4:30 PM Re sults for this HEAD WAITRESS procedure are i n the results section. BLOOD GAS, ARTERIAL STAT 04/14/2019 4:30 PM R esults for this HEAD WAITRESS procedure are i n the results section. CALCIUM, IONIZED STAT 04/14/2019 4:30 PM Resu lts for this HEAD WAITRESS procedure are i n the results section. RRL CRITICAL LABS STAT 04/14/2019 4:30 PM Res ults for this (ABG,NA,K,H&H,GLUCOSE) HEAD WAITRESS proce dure are in the results section. CYTOLOGY AP Routine 04/14/2019 3:48 PM Results for this HEAD WAITRESS procedure are i n the results section. ANAEROBIC CULTURE Routine 04/14/2019 3:41 PM Res ults for this HEAD WAITRESS procedure are i n the results section. FUNGUS CULTURE + SMEAR Routine 04/14/2019 3:41 PM Results for this HEAD WAITRESS procedure are i n the results section. AFB CULTURE + SMEAR Routine 04/14/2019 3:41 PM R esults for this (NON-SPUTUM) HEAD WAITRESS procedure are i n the results section. SURGICALLY OBTAINED Routine 04/14/2019 3:41 PM R esults for this CULTURE + GRAM STAIN HEAD WAITRESS procedu re are in the results section. HGB/HCT (H&H) - STAT LAB STAT 04/14/2019 3:24 PM Results for this HEAD WAITRESS procedure are i n the results section. GLUCOSE-STAT LAB STAT 04/14/2019 3:24 PM Resu lts for this HEAD WAITRESS procedure are i n the results section. POTASSIUM-STAT LAB STAT 04/14/2019 3:24 PM Re sults for this HEAD WAITRESS procedure are i n the results section. SODIUM NA-STAT LAB STAT 04/14/2019 3:24 PM Re sults for this HEAD WAITRESS procedure are i n the results section. BLOOD GAS, ARTERIAL STAT 04/14/2019 3:24 PM R esults for this HEAD WAITRESS procedure are i n the results section. CALCIUM, IONIZED STAT 04/14/2019 3:24 PM Resu lts for this HEAD WAITRESS procedure are i n the results section. RRL CRITICAL LABS STAT 04/14/2019 3:24 PM Res ults for this (ABG,NA,K,H&H,GLUCOSE) HEAD WAITRESS proce dure are in the results section. BRONCHOSCOPY 04/14/2019 1:25 PM Empyema, right HEAD WAITRESS (HCC) THORACOSCOPY 04/14/2019 1:25 PM Empyema, right (VATS),DECORTICATION HEAD WAITRESS (HCC) ECG 12-LEAD Routine 04/14/2019 12:19 PM HEAD WAITRESS Procedure Note - Interface, External Ris In - 04/14/2019 12:20 PM HEAD WAITRESS Ventricular Rate 45 BPM Atrial Rate 45 BPM P-R Interval 178 ms QRS Duration 118 ms Q-T Interval 542 ms QTC Calculation(Bazett) 468 ms P Butterfield 67 degrees R Butterfield 20 degrees T Butterfield -1 degrees Sinus bradycardia Left ventricular hypertrophy with QRS widening Nonspecific ST abnormality Abnormal ECG When compared with ECG of 08:09, Sinus rhythm has replaced At ria fibrillation Vent. rate has decreased BY [address] now depressed in Anterior leads T wave inversion now evident in Inferior leads Nonspecific T wave abnormali ty no longer evident in Lateral leads ECG 12-LEAD STAT 04/14/2019 12:19 Results for this PM HEAD WAITRESS procedure are i n the results section. XR CHEST 1 VIEW Routine 04/14/2019 10:05 Results for this PORTABLE/BEDSIDE AM HEAD WAITRESS procedure a re in the results section. CBC W/PLT COUNT & AUTO Routine 04/14/2019 1:01 R esults for this DIFFERENTIAL AM HEAD WA[facility] procedure are i n the results section. TYPE AND SCREEN, Routine 04/14/2019 1:01 Results for this AUTOMATED AM HEAD [facility]ITRESS procedure are i n the results section. COMPREHENSIVE Add-On 04/14/2019 1:01 Results fo r this METABOLIC PANEL AM HEAD WAITRESS procedure ar e in the results section. PROTHROMBIN TIME/INR Routine 04/14/2019 1:01 Res ults for this AM [facility] procedure are i n the results section. BASIC METABOLIC PANEL Routine 04/14/2019 1:01 Re sults for this (7) AM HEAD WA[facility] procedure are i n the results section. PHOSPHORUS Routine 04/14/2019 1:01 Results for this AM [facility] procedure are i n the results section. MAGNESIUM Routine 04/14/2019 1:01 Results for this AM HEAD WA[facility] procedure are i n the results section. CBC W/PLT COUNT & AUTO Routine 04/14/2019 1:01 R esults for this DIFFERENTIAL AM HEAD [facility] procedure are i n the results section. POCT-GLUCOSE METER Routine 04/13/2019 7:57 Resul ts for this PM HEAD WAITRESS procedure are i n the results section. POCT-GLUCOSE METER Routine 04/13/2019 5:17 Resul ts for this PM HEAD WAITR[facility] procedure are i n the results section. POCT-GLUCOSE METER Routine 04/13/2019 11:52 Resul ts for this AM [facility] procedure are i n the results section. XR CHEST 1 VIEW Routine 04/13/2019 8:26 Results for this PORTABLE/BEDSIDE AM HEAD WAITRESS procedure a re in the results section. POCT-GLUCOSE METER Routine 04/13/2019 5:58 Resul ts for this AM [facility] procedure are i n the results section. CBC W/PLT COUNT & AUTO Routine 04/13/2019 4:50 R esults for this DIFFERENTIAL AM HEAD WA[facility] procedure are i n the results section. CBC W/PLT COUNT & AUTO Routine 04/13/2019 4:50 R esults for this DIFFERENTIAL AM [facility] procedure are i n the results section. HEPATIC FUNCTION PANEL Routine 04/13/2019 4:39 R esults for this AM [facility] procedure are i n the results section. BASIC METABOLIC PANEL Routine 04/13/2019 4:39 Re sults for this (7) AM [facility] procedure are i n the results section. PHOSPHORUS Routine 04/13/2019 4:39 Results for this AM HEAD WA[facility] procedure are i n the results section. MAGNESIUM Routine 04/13/2019 4:39 Results for this AM HEAD [facility] procedure are i n the results section. APTT Routine 04/13/2019 4:29 Results for this AM [facility] procedure are i n the results section. POCT-GLUCOSE METER Routine 04/12/2019 5:20 Resul ts for this PM HEAD WA[facility] procedure are i n the results section. POCT-GLUCOSE METER Routine 04/12/2019 12:05 Resul ts for this PM [facility] procedure are i n the results section. XR CHEST 1 VIEW Routine 04/12/2019 6:43 Results for this PORTABLE/BEDSIDE AM HEAD WAITR[facility] procedure a re in the results section. POCT-GLUCOSE METER Routine 04/12/2019 5:21 Resul ts for this AM [facility] procedure are i n the results section. CBC W/PLT COUNT & AUTO Routine 04/12/2019 5:17 R esults for this DIFFERENTIAL AM HEAD WA[facility] procedure are i n the results section. BASIC METABOLIC PANEL Routine 04/12/2019 5:17 Re sults for this (7) AM HEAD [facility] procedure are i n the results section. PHOSPHORUS Routine 04/12/2019 5:17 Results for this AM HEAD [facility] procedure are i n the results section. MAGNESIUM Routine 04/12/2019 5:17 Results for this AM [facility] procedure are i n the results section. CBC W/PLT COUNT & AUTO Routine 04/12/2019 5:17 R esults for this DIFFERENTIAL AM HEAD WAITR[facility] procedure are i n the results section. POCT-GLUCOSE METER Routine 04/12/2019 12:04 Resul ts for this AM [facility] procedure are i n the results section. POCT-GLUCOSE METER Routine 04/11/2019 5:35 Resul ts for this PM [facility] WA[facility] procedure are i n the results section. XR CHEST 1 VIEW Routine 04/11/2019 1:04 Results for this PORTABLE/BEDSIDE PM HEAD WAITRESS procedure a re in the results section. POCT-GLUCOSE METER Routine 04/11/2019 12:09 Resul ts for this PM HEAD WA[facility] procedure are i n the results section. POCT-GLUCOSE METER Routine 04/11/2019 10:39 Resul ts for this AM [facility] procedure are i n the results section. REPORT OF PROCEDURE - 04/11/2019 10:15 ENDOSCOPY URL AM HEAD WAITRESS UPPER ENDOSCOPY,PEG 04/11/2019 9:00 Dysphagia, AM HEAD WAITRESS unspecified type POCT-GLUCOSE METER Routine 04/11/2019 7:01 Resul ts for this AM HEAD [facility] procedure are i n the results section. CBC W/PLT COUNT & AUTO Routine 04/11/2019 5:28 R esults for this DIFFERENTIAL AM HEAD WA[facility] procedure are i n the results section. PROTHROMBIN TIME/INR Routine 04/11/2019 5:28 Res ults for this AM [facility] procedure are i n the results section. BASIC METABOLIC PANEL Routine 04/11/2019 5:28 Re sults for this (7) AM HEAD [facility] procedure are i n the results section. PHOSPHORUS Routine 04/11/2019 5:28 Results for this AM HEAD [facility] procedure are i n the results section. MAGNESIUM Routine 04/11/2019 5:28 Results for this AM HEAD [facility] procedure are i n the results section. CBC W/PLT COUNT & AUTO Routine 04/11/2019 5:28 R esults for this DIFFERENTIAL AM HEAD WAITR[facility] procedure are i n the results section. POCT-GLUCOSE METER Routine 04/11/2019 12:16 Resul ts for this AM [facility] procedure are i n the results section. POCT-GLUCOSE METER Routine 04/10/2019 2:51 Resul ts for this PM HEAD WAITRESS procedure are i n the results section. XR CHEST 1 VIEW Routine 04/10/2019 9:16 Results for this PORTABLE/BEDSIDE AM HEAD WAITR[facility] procedure a re in the results section. CBC W/PLT COUNT & AUTO Routine 04/10/2019 4:41 R esults for this DIFFERENTIAL AM HEAD WAITR[facility] procedure are i n the results section. BASIC METABOLIC PANEL Routine 04/10/2019 4:41 Re sults for this (7) AM HEAD WA[facility] procedure are i n the results section. PHOSPHORUS Routine 04/10/2019 4:41 Results for this AM HEAD [facility] procedure are i n the results section. MAGNESIUM Routine 04/10/2019 4:41 Results for this AM [facility] procedure are i n the results section. CBC W/PLT COUNT & AUTO Routine 04/10/2019 4:41 R esults for this DIFFERENTIAL AM HEAD WA[facility] procedure are i n the results section. POCT-GLUCOSE METER Routine 04/10/2019 12:37 Resul ts for this AM [facility] procedure are i n the results section. POCT-GLUCOSE METER Routine 04/09/2019 5:19 Resul ts for this PM [facility] procedure are i n the results section. XR ESOPH SWALLOW Routine 04/09/2019 1:56 Results for this FUNCTION W/CINE VIDEO PM HEAD WAITRESS proced ure are in the results section. BODY FLUID CULTURE + CHRISSIE 04/09/2019 12:10 Res ults for this GRAM STAIN PM HEAD WA[facility] procedure are i n the results section. POCT-GLUCOSE METER Routine 04/09/2019 11:47 Resul ts for this AM [facility] procedure are i n the results section. POCT-GLUCOSE METER Routine 04/09/2019 9:21 Resul ts for this AM [facility] procedure are i n the results section. XR CHEST 1 VIEW Routine 04/09/2019 6:51 Results for this PORTABLE/BEDSIDE AM HEAD WAITR[facility] procedure a re in the results section. POCT-GLUCOSE METER Routine 04/09/2019 6:16 Resul ts for this AM HEAD [facility] procedure are i n the results section. CBC W/PLT COUNT & AUTO Routine 04/09/2019 5:32 R esults for this DIFFERENTIAL AM HEAD WA[facility] procedure are i n the results section. BASIC METABOLIC PANEL Routine 04/09/2019 5:32 Re sults for this (7) AM HEAD [facility] procedure are i n the results section. PHOSPHORUS Routine 04/09/2019 5:32 Results for this AM HEAD [facility] procedure are i n the results section. MAGNESIUM Routine 04/09/2019 5:32 Results for this AM HEAD [facility] procedure are i n the results section. CBC W/PLT COUNT & AUTO Routine 04/09/2019 5:32 R esults for this DIFFERENTIAL AM HEAD WA[facility] procedure are i n the results section. POCT-GLUCOSE METER Routine 04/09/2019 1:56 Resul ts for this AM [facility] procedure are i n the results section. POCT-GLUCOSE METER Routine 04/08/2019 5:45 Resul ts for this PM HEAD WAITR[facility] procedure are i n the results section. POCT-GLUCOSE METER Routine 04/08/2019 12:36 Resul ts for this PM HEAD WA[facility] procedure are i n the results section. XR CHEST 1 VIEW Routine 04/08/2019 6:25 Results for this PORTABLE/BEDSIDE AM HEAD WAITR[facility] procedure a re in the results section. POCT-GLUCOSE METER Routine 04/08/2019 5:17 Resul ts for this AM [facility] procedure are i n the results section. CBC W/PLT COUNT & AUTO Routine 04/08/2019 4:12 R esults for this DIFFERENTIAL AM HEAD WA[facility] procedure are i n the results section. BASIC METABOLIC PANEL Routine 04/08/2019 4:12 Re sults for this (7) AM HEAD [facility] procedure are i n the results section. PHOSPHORUS Routine 04/08/2019 4:12 Results for this AM HEAD [facility] procedure are i n the results section. MAGNESIUM Routine 04/08/2019 4:12 Results for this AM [facility] WA[facility] procedure are i n the results section. CBC W/PLT COUNT & AUTO Routine 04/08/2019 4:12 R esults for this DIFFERENTIAL AM HEAD [facility] procedure are i n the results section. POCT-GLUCOSE METER Routine 04/08/2019 12:22 Resul ts for this AM [facility] procedure are i n the results section. BASIC METABOLIC PANEL Routine 04/07/2019 6:08 Re sults for this (7) PM HEAD WAITR[facility] procedure are i n the results section. POCT-GLUCOSE METER Routine 04/07/2019 5:36 Resul ts for this PM HEAD WAITR[facility] procedure are i n the results section. POCT-GLUCOSE METER Routine 04/07/2019 11:35 Resul ts for this AM [facility] procedure are i n the results section. XR CHEST 1 VIEW STAT 04/07/2019 11:21 Results for this PORTABLE/BEDSIDE AM HEAD WAITR[facility] procedure a re in the results section. XR CHEST 1 VIEW Routine 04/07/2019 9:52 Results for this PORTABLE/BEDSIDE AM HEAD [facility] procedure a re in the results section. POCT-GLUCOSE METER Routine 04/07/2019 6:38 Resul ts for this AM [facility] procedure are i n the results section. CBC W/PLT COUNT & AUTO Routine 04/07/2019 6:07 R esults for this DIFFERENTIAL AM HEAD WAITR[facility] procedure are i n the results section. BASIC METABOLIC PANEL Routine 04/07/2019 6:07 Re sults for this (7) AM [facility] procedure are i n the results section. PHOSPHORUS Routine 04/07/2019 6:07 Results for this AM [facility] procedure are i n the results section. MAGNESIUM Routine 04/07/2019 6:07 Results for this AM [facility] procedure are i n the results section. CBC W/PLT COUNT & AUTO Routine 04/07/2019 6:07 R esults for this DIFFERENTIAL AM HEAD WAITR[facility] procedure are i n the results section. POCT-GLUCOSE METER Routine 04/06/2019 11:48 Resul ts for this PM HEAD WAITR[facility] procedure are i n the results section. POCT-GLUCOSE METER Routine 04/06/2019 5:17 Resul ts for this PM HEAD WA[facility] procedure are i n the results section. BASIC METABOLIC PANEL Routine 04/06/2019 4:40 Re sults for this (7) PM HEAD WAITR[facility] procedure are i n the results section. POCT-GLUCOSE METER Routine 04/06/2019 12:37 Resul ts for this PM HEAD [facility] procedure are i n the results section. XR CHEST 1 VIEW Routine 04/06/2019 6:49 Results for this PORTABLE/BEDSIDE AM HEAD WAITRESS procedure a re in the results section. CBC W/PLT COUNT & AUTO Routine 04/06/2019 6:33 R esults for this DIFFERENTIAL AM HEAD WAITR[facility] procedure are i n the results section. BASIC METABOLIC PANEL Routine 04/06/2019 6:33 Re sults for this (7) AM HEAD WA[facility] procedure are i n the results section. PHOSPHORUS Routine 04/06/2019 6:33 Results for this AM HEAD [facility] procedure are i n the results section. MAGNESIUM Routine 04/06/2019 6:33 Results for this AM [facility] procedure are i n the results section. CBC W/PLT COUNT & AUTO Routine 04/06/2019 6:33 R esults for this DIFFERENTIAL AM HEAD [facility] procedure are i n the results section. POCT-GLUCOSE METER Routine 04/06/2019 5:15 Resul ts for this AM [facility] procedure are i n the results section. BASIC METABOLIC PANEL Routine 04/05/2019 4:43 Re sults for this (7) PM HEAD WAITR[facility] procedure are i n the results section. POCT-GLUCOSE METER Routine 04/05/2019 11:21 Resul ts for this AM [facility] procedure are i n the results section. CBC W/PLT COUNT & AUTO Routine 04/05/2019 4:50 R esults for this DIFFERENTIAL AM HEAD WA[facility] procedure are i n the results section. BASIC METABOLIC PANEL Routine 04/05/2019 4:50 Re sults for this (7) AM HEAD [facility] procedure are i n the results section. PHOSPHORUS Routine 04/05/2019 4:50 Results for this AM HEAD [facility] procedure are i n the results section. MAGNESIUM Routine 04/05/2019 4:50 Results for this AM [facility] procedure are i n the results section. CBC W/PLT COUNT & AUTO Routine 04/05/2019 4:50 R esults for this DIFFERENTIAL AM [facility] procedure are i n the results section. XR CHEST 1 VIEW Routine 04/05/2019 1:58 Results for this PORTABLE/BEDSIDE AM HEAD [facility] procedure a re in the results section. POCT-GLUCOSE METER Routine 04/04/2019 11:42 Resul ts for this PM HEAD WAITR[facility] procedure are i n the results section. POCT-GLUCOSE METER Routine 04/04/2019 5:43 Resul ts for this PM [facility] procedure are i n the results section. BASIC METABOLIC PANEL Routine 04/04/2019 4:28 Re sults for this (7) PM [facility] procedure are i n the results section. XR ABDOMEN / KUB 1 STAT 04/04/2019 3:58 Resul ts for this VIEW PM HEAD [facility] procedure are i n the results section. XR ABDOMEN / KUB 1 STAT 04/04/2019 3:39 Resul ts for this VIEW PM HEAD [facility] procedure are i n the results section. POCT-GLUCOSE METER Routine 04/04/2019 12:09 Resul ts for this PM [facility] procedure are i n the results section. XR CHEST 1 VIEW STAT 04/04/2019 8:30 Results for this PORTABLE/BEDSIDE AM HEAD [facility] procedure a re in the results section. POCT-GLUCOSE METER Routine 04/04/2019 5:29 Resul ts for this AM [facility] procedure are i n the results section. CBC W/PLT COUNT & AUTO Routine 04/04/2019 4:42 R esults for this DIFFERENTIAL AM [facility] procedure are i n the results section. BASIC METABOLIC PANEL Routine 04/04/2019 4:42 Re sults for this (7) AM [facility] procedure are i n the results section. PHOSPHORUS Routine 04/04/2019 4:42 Results for this AM [facility] procedure are i n the results section. MAGNESIUM Routine 04/04/2019 4:42 Results for this AM [facility] procedure are i n the results section. CBC W/PLT COUNT & AUTO Routine 04/04/2019 4:42 R esults for this DIFFERENTIAL AM [facility] procedure are i n the results section. POCT-GLUCOSE METER Routine 04/03/2019 11:54 Resul ts for this PM [facility] procedure are i n the results section. POCT-GLUCOSE METER Routine 04/03/2019 5:02 Resul ts for this PM [facility] procedure are i n the results section. MAGNESIUM Add-On 04/03/2019 3:27 Results for this PM [facility] procedure are i n the results section. BASIC METABOLIC PANEL Routine 04/03/2019 3:27 Re sults for this (7) PM HEAD [facility] procedure are i n the results section. POCT-GLUCOSE METER Routine 04/03/2019 12:07 Resul ts for this PM [facility] procedure are i n the results section. POCT-GLUCOSE METER Routine 04/03/2019 5:53 Resul ts for this AM [facility] procedure are i n the results section. XR CHEST 1 VIEW CHRISSIE 04/03/2019 5:14 Results for this PORTABLE/BEDSIDE AM [facility] procedure a re in the results section. CBC W/PLT COUNT & AUTO Routine 04/03/2019 2:13 R esults for this DIFFERENTIAL AM [facility] procedure are i n the results section. BASIC METABOLIC PANEL Routine 04/03/2019 2:13 Re sults for this (7) AM [facility] procedure are i n the results section. PHOSPHORUS Routine 04/03/2019 2:13 Results for this AM [facility] procedure are i n the results section. MAGNESIUM Routine 04/03/2019 2:13 Results for this AM [facility] procedure are i n the results section. CBC W/PLT COUNT & AUTO Routine 04/03/2019 2:13 R esults for this DIFFERENTIAL AM [facility] procedure are i n the results section. POCT-GLUCOSE METER Routine 04/02/2019 11:54 Resul ts for this PM [facility] procedure are i n the results section. APTT Routine 04/02/2019 10:44 Results for this PM HEAD [facility] procedure are i n the results section. POCT-GLUCOSE METER Routine 04/02/2019 5:26 Resul ts for this PM HEAD [facility] procedure are i n the results section. APTT Routine 04/02/2019 4:42 Results for this PM [facility] procedure are i n the results section. BASIC METABOLIC PANEL Routine 04/02/2019 4:42 Re sults for this (7) PM HEAD [facility] procedure are i n the results section. POCT-GLUCOSE METER Routine 04/02/2019 12:20 Resul ts for this PM HEAD WA[facility] procedure are i n the results section. APTT Routine 04/02/2019 8:12 Results for this AM [facility] procedure are i n the results section. XR CHEST 1 VIEW Routine 04/02/2019 6:02 Results for this PORTABLE/BEDSIDE AM HEAD [facility] procedure a re in the results section. POCT-GLUCOSE METER Routine 04/02/2019 5:34 Resul ts for this AM [facility] procedure are i n the results section. APTT Routine 04/02/2019 1:20 Results for this AM [facility] procedure are i n the results section. BLOOD GAS, ARTERIAL Routine 04/02/2019 1:19 Resu lts for this AM [facility] procedure are i n the results section. CBC W/PLT COUNT & AUTO Routine 04/02/2019 1:18 R esults for this DIFFERENTIAL AM [facility] procedure are i n the results section. BASIC METABOLIC PANEL Routine 04/02/2019 1:18 Re sults for this (7) AM [facility] procedure are i n the results section. PHOSPHORUS Routine 04/02/2019 1:18 Results for this AM [facility] procedure are i n the results section. MAGNESIUM Routine 04/02/2019 1:18 Results for this AM HEAD [facility] procedure are i n the results section. CBC W/PLT COUNT & AUTO Routine 04/02/2019 1:18 R esults for this DIFFERENTIAL [facility] procedure are i n the results section. POCT-GLUCOSE METER Routine 04/01/2019 11:48 Resul ts for this [facility] procedure are i n the results section. BASIC METABOLIC PANEL Routine 04/01/2019 7:06 Re sults for this (7) [facility] procedure are i n the results section. APTT Routine 04/01/2019 6:47 Results for this [facility] procedure are i n the results section. POCT-GLUCOSE METER Routine 04/01/2019 5:51 Resul ts for this [facility] procedure are i n the results section. POCT-GLUCOSE METER Routine 04/01/2019 11:41 Resul ts for this [facility] procedure are i n the results section. APTT Routine 04/01/2019 11:07 Results for this [facility] procedure are i n the results section. POCT-GLUCOSE METER Routine 04/01/2019 6:26 Resul ts for this [facility] procedure are i n the results section. XR CHEST 1 VIEW Routine 04/01/2019 5:07 Results for this PORTABLE/BEDSIDE [facility] procedure a re in the results section. BLOOD GAS, ARTERIAL Routine 04/01/2019 3:25 Resu lts for this [facility] procedure are i n the results section. CBC W/PLT COUNT & AUTO Routine 04/01/2019 3:23 R esults for this DIFFERENTIAL [facility] procedure are i n the results section. APTT Routine 04/01/2019 3:23 Results for this [facility] procedure are i n the results section. BASIC METABOLIC PANEL Routine 04/01/2019 3:23 Re sults for this (7) [facility] procedure are i n the results section. PHOSPHORUS Routine 04/01/2019 3:23 Results for this [facility] procedure are i n the results section. MAGNESIUM Routine 04/01/2019 3:23 Results for this [facility] procedure are i n the results section. CBC W/PLT COUNT & AUTO Routine 04/01/2019 3:23 R esults for this DIFFERENTIAL [facility] procedure are i n the results section. POCT-GLUCOSE METER Routine 03/31/2019 11:51 Resul ts for this [facility] procedure are i n the results section. APTT Routine 03/31/2019 10:13 Results for this [facility] procedure are i n the results section. APTT Routine 03/31/2019 7:52 Results for this [facility] procedure are i n the results section. POCT-GLUCOSE METER Routine 03/31/2019 6:08 Resul ts for this [facility] procedure are i n the results section. APTT Routine 03/31/2019 1:59 Results for this [facility] procedure are i n the results section. BASIC METABOLIC PANEL Routine 03/31/2019 1:59 Re sults for this (7) [facility] procedure are i n the results section. LACTIC ACID, VENOUS Routine 03/31/2019 1:59 Resu lts for this [facility] procedure are i n the results section. PHOSPHORUS STAT 03/31/2019 1:59 Results for this [facility] procedure are i n the results section. MAGNESIUM STAT 03/31/2019 1:59 Results for this [facility] procedure are i n the results section. PT/APTT STAT 03/31/2019 1:59 Results for this [facility] procedure are i n the results section. COMPREHENSIVE STAT 03/31/2019 1:59 Results fo r this METABOLIC PANEL [facility] procedure ar e in the results section. TROPONIN I STAT 03/31/2019 1:59 Results for this [facility] procedure are i n the results section. POCT-GLUCOSE METER Routine 03/31/2019 11:50 Resul ts for this [facility] procedure are i n the results section. XR ABDOMEN / KUB 1 STAT 03/31/2019 11:33 Resul ts for this VIEW [facility] procedure are i n the results section. TROPONIN I Routine 03/31/2019 9:12 Results for this [facility] procedure are i n the results section. APTT Routine 03/31/2019 6:42 Results for this [facility] procedure are i n the results section. BLOOD GAS, ARTERIAL Routine 03/31/2019 6:42 Resu lts for this [facility] procedure are i n the results section. POCT-GLUCOSE METER Routine 03/31/2019 5:40 Resul ts for this [facility] procedure are i n the results section. XR CHEST 1 VIEW Routine 03/31/2019 5:29 Results for this PORTABLE/BEDSIDE [facility] procedure a re in the results section. APTT Routine 03/31/2019 4:20 Results for this [facility] procedure are i n the results section. BLOOD GAS, ARTERIAL Routine 03/31/2019 3:52 Resu lts for this [facility] procedure are i n the results section. CBC W/PLT COUNT & AUTO Routine 03/31/2019 3:51 R esults for this DIFFERENTIAL [facility] procedure are i n the results section. BASIC METABOLIC PANEL Routine 03/31/2019 3:51 Re sults for this (7) [facility] procedure are i n the results section. PHOSPHORUS Routine 03/31/2019 3:51 Results for this [facility] procedure are i n the results section. MAGNESIUM Routine 03/31/2019 3:51 Results for this [facility] procedure are i n the results section. CBC W/PLT COUNT & AUTO Routine 03/31/2019 3:51 R esults for this DIFFERENTIAL [facility] procedure are i n the results section. LACTIC ACID, VENOUS STAT 03/31/2019 3:51 Resu lts for this [facility] procedure are i n the results section. TROPONIN I Routine 03/31/2019 1:30 Results for this [facility] procedure are i n the results section. LACTIC ACID, VENOUS Routine 03/31/2019 1:30 Resu lts for this [facility] procedure are i n the results section. B-TYPE NATRIURETIC STAT 03/31/2019 1:30 Resul ts for this FACTOR (BNP) [facility] procedure are i n the results section. POCT-GLUCOSE METER Routine 03/31/2019 12:17 Resul ts for this [facility] procedure are i n the results section. CT BRAIN WITHOUT IV Routine 03/30/2019 11:54 Resu lts for this CONTRAST [facility] procedure are i n the results section. CT CHEST PE TEST Routine 03/30/2019 11:54 Results for this DESIGN [facility] procedure are i n the results section. POCT-HEMOGLOBIN Routine 03/30/2019 8:53 Results for this [facility] procedure are i n the results section. POCT-HEMATOCRIT Routine 03/30/2019 8:53 Results for this [facility] procedure are i n the results section. POCT-CALCIUM IONIZED Routine 03/30/2019 8:53 Res ults for this [facility] procedure are i n the results section. POCT-GLUCOSE Routine 03/30/2019 8:53 Results for this [facility] procedure are i n the results section. POCT-POTASSIUM Routine 03/30/2019 8:53 Results f or this [facility] procedure are i n the results section. POCT-SODIUM Routine 03/30/2019 8:53 Results for this [facility] procedure are i n the results section. POCT-BLOOD GASES, Routine 03/30/2019 8:53 Result s for this ARTERIAL [facility] procedure are i n the results section. CBC W/PLT COUNT & AUTO STAT 03/30/2019 8:44 R esults for this DIFFERENTIAL [facility] procedure are i n the results section. LACTIC ACID, VENOUS Routine 03/30/2019 8:44 Resu lts for this [facility] procedure are i n the results section. PHOSPHORUS STAT 03/30/2019 8:44 Results for this [facility] procedure are i n the results section. MAGNESIUM STAT 03/30/2019 8:44 Results for this [facility] procedure are i n the results section. TROPONIN I STAT 03/30/2019 8:44 Results for this [facility] procedure are i n the results section. COMPREHENSIVE STAT 03/30/2019 8:44 Results fo r this METABOLIC PANEL [facility] procedure ar e in the results section. CBC W/PLT COUNT & AUTO STAT 03/30/2019 8:44 R esults for this DIFFERENTIAL [facility] procedure are i n the results section. XR CHEST 1 VIEW STAT 03/30/2019 8:34 Results for this PORTABLE/BEDSIDE [facility] procedure a re in the results section. APTT Routine 03/30/2019 5:57 Results for this [facility] procedure are i n the results section. POCT-GLUCOSE METER Routine 03/30/2019 5:54 Resul ts for this [facility] procedure are i n the results section. BASIC METABOLIC PANEL Routine 03/30/2019 3:46 Re sults for this (7) [facility] procedure are i n the results section. APTT Routine 03/30/2019 12:08 Results for this [facility] procedure are i n the results section. POCT-GLUCOSE METER Routine 03/30/2019 11:49 Resul ts for this [facility] procedure are i n the results section. XR CHEST 1 VIEW Routine 03/30/2019 7:47 Results for this PORTABLE/BEDSIDE [facility] procedure a re in the results section. APTT Routine 03/30/2019 6:32 Results for this [facility] procedure are i n the results section. POCT-GLUCOSE METER Routine 03/30/2019 5:55 Resul ts for this [facility] procedure are i n the results section. CBC W/PLT COUNT & AUTO Routine 03/30/2019 4:31 R esults for this DIFFERENTIAL [facility] procedure are i n the results section. APTT Routine 03/30/2019 4:31 Results for this [facility] procedure are i n the results section. BASIC METABOLIC PANEL Routine 03/30/2019 4:31 Re sults for this (7) [facility] procedure are i n the results section. PHOSPHORUS Routine 03/30/2019 4:31 Results for this [facility] procedure are i n the results section. MAGNESIUM Routine 03/30/2019 4:31 Results for this [facility] procedure are i n the results section. CBC W/PLT COUNT & AUTO Routine 03/30/2019 4:31 R esults for this DIFFERENTIAL [facility] procedure are i n the results section. POCT-GLUCOSE METER Routine 03/30/2019 12:16 Resul ts for this [facility] procedure are i n the results section. POCT-GLUCOSE METER Routine 03/29/2019 6:14 Resul ts for this [facility] procedure are i n the results section. BASIC METABOLIC PANEL Routine 03/29/2019 12:20 Re sults for this (7) [facility] procedure are i n the results section. POCT-GLUCOSE METER Routine 03/29/2019 12:18 Resul ts for this [facility] procedure are i n the results section. POCT-GLUCOSE METER Routine 03/29/2019 6:00 Resul ts for this [facility] procedure are i n the results section. XR CHEST 1 VIEW Routine 03/29/2019 4:42 Results for this PORTABLE/BEDSIDE [facility] procedure a re in the results section. APTT Routine 03/29/2019 3:33 Results for this [facility] procedure are i n the results section. CBC W/PLT COUNT & AUTO Routine 03/29/2019 3:30 R esults for this DIFFERENTIAL [facility] procedure are i n the results section. BASIC METABOLIC PANEL Routine 03/29/2019 3:30 Re sults for this (7) [facility] procedure are i n the results section. PHOSPHORUS Routine 03/29/2019 3:30 Results for this [facility] procedure are i n the results section. MAGNESIUM Routine 03/29/2019 3:30 Results for this [facility] procedure are i n the results section. CBC W/PLT COUNT & AUTO Routine 03/29/2019 3:30 R esults for this DIFFERENTIAL [facility] procedure are i n the results section. POCT-GLUCOSE METER Routine 03/29/2019 12:23 Resul ts for this [facility] procedure are i n the results section. APTT Routine 03/28/2019 8:25 Results for this [facility] procedure are i n the results section. VANCOMYCIN LEVEL, Timed 03/28/2019 8:25 Result s for this TROUGH [facility] procedure are i n the results section. POCT-GLUCOSE METER Routine 03/28/2019 5:33 Resul ts for this [facility] procedure are i n the results section. BASIC METABOLIC PANEL Routine 03/28/2019 4:03 Re sults for this (7) [facility] procedure are i n the results section. APTT Routine 03/28/2019 2:03 Results for this [facility] procedure are i n the results section. POCT-GLUCOSE METER Routine 03/28/2019 12:26 Resul ts for this [facility] procedure are i n the results section. CYTOLOGY AP Routine 03/28/2019 8:03 Results for this [facility] procedure are i n the results section. APTT Routine 03/28/2019 6:30 Results for this [facility] procedure are i n the results section. CBC W/PLT COUNT & AUTO Routine 03/28/2019 4:21 R esults for this DIFFERENTIAL [facility] procedure are i n the results section. APTT Routine 03/28/2019 4:21 Results for this [facility] procedure are i n the results section. BASIC METABOLIC PANEL Routine 03/28/2019 4:21 Re sults for this (7) [facility] procedure are i n the results section. PHOSPHORUS Routine 03/28/2019 4:21 Results for this [facility] procedure are i n the results section. MAGNESIUM Routine 03/28/2019 4:21 Results for this [facility] procedure are i n the results section. CBC W/PLT COUNT & AUTO Routine 03/28/2019 4:21 R esults for this DIFFERENTIAL [facility] procedure are i n the results section. XR CHEST 1 VIEW Routine 03/28/2019 3:24 Results for this PORTABLE/BEDSIDE [facility] procedure a re in the results section. POCT-GLUCOSE METER Routine 03/28/2019 12:13 Resul ts for this [facility] procedure are i n the results section. POCT-GLUCOSE METER Routine 03/27/2019 5:40 Resul ts for this [facility] procedure are i n the results section. BASIC METABOLIC PANEL Routine 03/27/2019 4:05 Re sults for this (7) [facility] procedure are i n the results section. APTT Routine 03/27/2019 12:05 Results for this [facility] procedure are i n the results section. POCT-GLUCOSE METER Routine 03/27/2019 11:31 Resul ts for this [facility] procedure are i n the results section. APTT Routine 03/27/2019 5:34 Results for this [facility] procedure are i n the results section. POCT-GLUCOSE METER Routine 03/27/2019 5:05 Resul ts for this [facility] procedure are i n the results section. CBC W/PLT COUNT & AUTO Routine 03/27/2019 4:32 R esults for this DIFFERENTIAL [facility] procedure are i n the results section. BASIC METABOLIC PANEL Routine 03/27/2019 4:32 Re sults for this (7) [facility] procedure are i n the results section. PHOSPHORUS Routine 03/27/2019 4:32 Results for this [facility] procedure are i n the results section. MAGNESIUM Routine 03/27/2019 4:32 Results for this [facility] procedure are i n the results section. CBC W/PLT COUNT & AUTO Routine 03/27/2019 4:32 R esults for this DIFFERENTIAL [facility] procedure are i n the results section. XR CHEST 1 VIEW Routine 03/27/2019 3:54 Results for this PORTABLE/BEDSIDE [facility] procedure a re in the results section. ECHOCARDIOGRAM REPORT 03/26/2019 9:11 - SCAN [facility] APTT Routine 03/26/2019 8:13 Results for this [facility] procedure are i n the results section. IR DRAINAGE CATHETER CHRISSIE 03/26/2019 7:30 Res ults for this CHANGE [facility] procedure are i n the results section. POCT-GLUCOSE METER Routine 03/26/2019 6:20 Resul ts for this [facility] procedure are i n the results section. BASIC METABOLIC PANEL Routine 03/26/2019 5:33 Re sults for this (7) [facility] procedure are i n the results section. APTT Routine 03/26/2019 12:53 Results for this [facility] procedure are i n the results section. POCT-GLUCOSE METER Routine 03/26/2019 11:54 Resul ts for this [facility] procedure are i n the results section. APTT Routine 03/26/2019 10:27 Results for this [facility] procedure are i n the results section. POCT-GLUCOSE METER Routine 03/26/2019 6:42 Resul ts for this [facility] procedure are i n the results section. XR CHEST 1 VIEW Routine 03/26/2019 3:58 Results for this PORTABLE/BEDSIDE [facility] procedure a re in the results section. BLOOD GAS, ARTERIAL Routine 03/26/2019 3:08 Resu lts for this [facility] procedure are i n the results section. CBC W/PLT COUNT & AUTO Routine 03/26/2019 3:00 R esults for this DIFFERENTIAL [facility] procedure are i n the results section. APTT Routine 03/26/2019 3:00 Results for this [facility] procedure are i n the results section. BASIC METABOLIC PANEL Routine 03/26/2019 3:00 Re sults for this (7) [facility] procedure are i n the results section. PHOSPHORUS Routine 03/26/2019 3:00 Results for this [facility] procedure are i n the results section. MAGNESIUM Routine 03/26/2019 3:00 Results for this [facility] procedure are i n the results section. CBC W/PLT COUNT & AUTO Routine 03/26/2019 3:00 R esults for this DIFFERENTIAL [facility] procedure are i n the results section. POCT-GLUCOSE METER Routine 03/26/2019 12:02 Resul ts for this [facility] procedure are i n the results section. BASIC METABOLIC PANEL Routine 03/25/2019 8:05 Re sults for this (7) [facility] procedure are i n the results section. 2D ECHO W/ DOPPLER STAT 03/25/2019 7:04 Resul ts for this (CW/PW/COLOR) [facility] procedure are in the results section. POCT-GLUCOSE METER Routine 03/25/2019 6:10 Resul ts for this [facility] procedure are i n the results section. CT ABDOMEN/PELVIS STAT 03/25/2019 6:00 Result s for this WITHOUT IV CONTRAST [facility] procedur e are in the results section. CT CHEST WITHOUT IV STAT 03/25/2019 6:00 Resu lts for this CONTRAST [facility] procedure are i n the results section. XR CHEST 1 VIEW STAT 03/25/2019 4:10 Results for this PORTABLE/BEDSIDE [facility] procedure a re in the results section. APTT Routine 03/25/2019 3:30 Results for this [facility] procedure are i n the results section. BASIC METABOLIC PANEL Routine 03/25/2019 11:46 Re sults for this (7) [facility] procedure are i n the results section. BLOOD GAS, ARTERIAL Routine 03/25/2019 11:43 Resu lts for this [facility] procedure are i n the results section. POCT-GLUCOSE METER Routine 03/25/2019 11:40 Resul ts for this [facility] procedure are i n the results section. APTT Routine 03/25/2019 9:33 Results for this [facility] procedure are i n the results section. BLOOD CULTURE Routine 03/25/2019 9:32 Results fo r this [facility] procedure are i n the results section. BLOOD CULTURE Routine 03/25/2019 9:32 Results fo r this [facility] procedure are i n the results section. URINALYSIS W/ REFLEX Routine 03/25/2019 9:08 Res ults for this URINE CULTURE [facility] procedure are in the results section. URINE CULTURE Routine 03/25/2019 9:08 Results fo r this [facility] procedure are i n the results section. SPUTUM CULTURE + GRAM Routine 03/25/2019 9:08 Re sults for this STAIN [facility] procedure are i n the results section. ECG 12-LEAD STAT 03/25/2019 8:09 Results for this [facility] procedure are i n the results section. POCT-GLUCOSE METER Routine 03/25/2019 6:06 Resul ts for this [facility] procedure are i n the results section. XR CHEST 1 VIEW Routine 03/25/2019 4:03 Results for this PORTABLE/BEDSIDE [facility] procedure a re in the results section. BASIC METABOLIC PANEL Routine 03/25/2019 3:30 Re sults for this (7) [facility] procedure are i n the results section. PHOSPHORUS Routine 03/25/2019 3:30 Results for this [facility] procedure are i n the results section. MAGNESIUM Routine 03/25/2019 3:30 Results for this [facility] procedure are i n the results section. CBC W/PLT COUNT & AUTO Routine 03/25/2019 3:09 R esults for this DIFFERENTIAL [facility] procedure are i n the results section. APTT Routine 03/25/2019 3:09 Results for this [facility] procedure are i n the results section. CBC W/PLT COUNT & AUTO Routine 03/25/2019 3:09 R esults for this DIFFERENTIAL [facility] procedure are i n the results section. POCT-GLUCOSE METER Routine 03/25/2019 12:01 Resul ts for this [facility] procedure are i n the results section. APTT Routine 03/24/2019 8:31 Results for this [facility] procedure are i n the results section. BASIC METABOLIC PANEL Routine 03/24/2019 8:31 Re sults for this (7) [facility] procedure are i n the results section. POCT-GLUCOSE METER Routine 03/24/2019 6:07 Resul ts for this [facility] procedure are i n the results section. XR ABDOMEN / KUB 1 STAT 03/24/2019 5:12 Resul ts for this VIEW [facility] procedure are i n the results section. XR CHEST 1 VIEW STAT 03/24/2019 5:12 Results for this PORTABLE/BEDSIDE [facility] procedure a re in the results section. APTT Routine 03/24/2019 12:36 Results for this [facility] procedure are i n the results section. BASIC METABOLIC PANEL Routine 03/24/2019 12:36 Re sults for this (7) [facility] procedure are i n the results section. POCT-GLUCOSE METER Routine 03/24/2019 12:17 Resul ts for this [facility] procedure are i n the results section. BLOOD GAS, ARTERIAL Routine 03/24/2019 12:04 Resu lts for this [facility] procedure are i n the results section. EEG EXTENDED STAT 03/24/2019 11:23 Results for this MONITORING 40 - 60 [facility] procedure are in MINUTES the results section. POCT-GLUCOSE METER Routine 03/24/2019 5:58 Resul ts for this [facility] procedure are i n the results section. BLOOD GAS, ARTERIAL STAT 03/24/2019 4:29 Resu lts for this [facility] procedure are i n the results section. APTT Routine 03/24/2019 4:25 Results for this [facility] procedure are i n the results section. CBC W/PLT COUNT & AUTO Routine 03/24/2019 4:10 R esults for this DIFFERENTIAL [facility] procedure are i n the results section. BASIC METABOLIC PANEL Routine 03/24/2019 4:10 Re sults for this (7) [facility] procedure are i n the results section. PHOSPHORUS Routine 03/24/2019 4:10 Results for this [facility] procedure are i n the results section. MAGNESIUM Routine 03/24/2019 4:10 Results for this [facility] procedure are i n the results section. CBC W/PLT COUNT & AUTO Routine 03/24/2019 4:10 R esults for this DIFFERENTIAL [facility] procedure are i n the results section. XR CHEST 1 VIEW Routine 03/24/2019 3:00 Results for this PORTABLE/BEDSIDE [facility] procedure a re in the results section. CT BRAIN WITHOUT IV Routine 03/24/2019 1:12 Resu lts for this CONTRAST [facility] procedure are i n the results section. POCT-GLUCOSE METER Routine 03/24/2019 12:05 Resul ts for this [facility] procedure are i n the results section. VANCOMYCIN LEVEL, Timed 03/23/2019 11:59 Result s for this TROUGH [facility] procedure are i n the results section. BASIC METABOLIC PANEL Routine 03/23/2019 7:44 Re sults for this (7) [facility] procedure are i n the results section. AMMONIA STAT 03/23/2019 3:55 Results for this [facility] procedure are i n the results section. HEPATIC FUNCTION PANEL Routine 03/23/2019 3:55 R esults for this [facility] procedure are i n the results section. BASIC METABOLIC PANEL Routine 03/23/2019 3:55 Re sults for this (7) [facility] procedure are i n the results section. (CELLAVISION MANUAL Routine 03/23/2019 5:58 Resu lts for this DIFF) [facility] procedure are i n the results section. CBC W/PLT COUNT & AUTO Routine 03/23/2019 5:58 R esults for this DIFFERENTIAL [facility] procedure are i n the results section. BLOOD GAS, ARTERIAL Routine 03/23/2019 5:58 Resu lts for this [facility] procedure are i n the results section. APTT Routine 03/23/2019 5:58 Results for this [facility] procedure are i n the results section. BASIC METABOLIC PANEL Routine 03/23/2019 5:58 Re sults for this (7) [facility] procedure are i n the results section. PHOSPHORUS Routine 03/23/2019 5:58 Results for this [facility] procedure are i n the results section. MAGNESIUM Routine 03/23/2019 5:58 Results for this [facility] procedure are i n the results section. CBC W/PLT COUNT & AUTO Routine 03/23/2019 5:58 R esults for this DIFFERENTIAL [facility] procedure are i n the results section. POCT-GLUCOSE METER Routine 03/23/2019 5:24 Resul ts for this [facility] procedure are i n the results section. POCT-GLUCOSE METER Routine 03/23/2019 12:09 Resul ts for this [facility] procedure are i n the results section. APTT Routine 03/22/2019 11:35 Results for this [facility] procedure are i n the results section. BASIC METABOLIC PANEL Routine 03/22/2019 8:05 Re sults for this (7) [facility] procedure are i n the results section. PT/APTT Routine 03/22/2019 5:15 Results for this [facility] procedure are i n the results section. SPIN/CONCENTRATION Routine 03/22/2019 2:37 Resul ts for this CHARGE [facility] procedure are i n the results section. FUNGUS CULTURE + Routine 03/22/2019 2:37 Results for this SMEAR [facility] procedure are i n the results section. BODY FLUID CELL COUNT Routine 03/22/2019 2:37 Re sults for this WITH DIFFERENTIAL [facility] procedure are in the results section. AFB CULTURE + SMEAR Routine 03/22/2019 2:37 Resu lts for this (NON-SPUTUM) PM HEAD WAITRESS procedure are i n the results section. TRIGLYCERIDES, PLEURAL Routine 03/22/2019 2:36 R esults for this FLUID PM HEAD WAITRESS procedure are i n the results section. PROTEIN, TOTAL, Routine 03/22/2019 2:36 Results for this PLEURAL FLUID PM HEAD WAITRESS procedure are in the results section. PH, BODY FLUID Routine 03/22/2019 2:36 Results f or this PM HEAD WAITRESS procedure are i n the results section. LACTATE DEHYDROGENASE Routine 03/22/2019 2:36 Re sults for this (LD), PLEURAL FLUID PM HEAD WAITRESS procedur e are in the results section. GLUCOSE PLEURAL FLUID Routine 03/22/2019 2:36 Re sults for this PM HEAD WAITRESS procedure are i n the results section. BODY FLUID CULTURE + Routine 03/22/2019 2:36 Res ults for this GRAM STAIN PM HEAD WAITRESS procedure are i n the results section. ADENOSINE DEAMINASE, Routine 03/22/2019 2:36 Res ults for this FLUID PM HEAD WAITRESS procedure are i n the results section. TRIGLYCERIDES, PLEURAL Routine 03/22/2019 2:35 R esults for this FLUID PM HEAD WAITRESS procedure are i n the results section. PH, BODY FLUID Routine 03/22/2019 2:35 Results f or this PM HEAD WAITRESS procedure are i n the results section. PROTEIN, TOTAL, Routine 03/22/2019 2:35 Results for this PLEURAL FLUID PM HEAD WAITRESS procedure are in the results section. LACTATE DEHYDROGENASE Routine 03/22/2019 2:35 Re sults for this (LD), PLEURAL FLUID PM HEAD WAITRESS procedur e are in the results section. GLUCOSE PLEURAL FLUID Routine 03/22/2019 2:35 Re sults for this PM HEAD WAITRESS procedure are i n the results section. FUNGUS CULTURE + Routine 03/22/2019 2:35 Results for this SMEAR PM HEAD WAITRESS procedure are i n the results section. BODY FLUID CULTURE + Routine 03/22/2019 2:35 Res ults for this GRAM STAIN PM HEAD WAITRESS procedure are i n the results section. BODY FLUID CELL COUNT Routine 03/22/2019 2:35 Re sults for this WITH DIFFERENTIAL PM HEAD WAITRESS procedure are in the results section. ALBUMIN PLEURAL FLUID Routine 03/22/2019 2:35 Re sults for this PM HEAD WAITRESS procedure are i n the results section. AFB CULTURE + SMEAR Routine 03/22/2019 2:35 Resu lts for this (NON-SPUTUM) PM HEAD WAITRESS procedure are i n the results section. ADENOSINE DEAMINASE, Routine 03/22/2019 2:35 Res ults for this FLUID PM HEAD WAITRESS procedure are i n the results section. SPIN/CONCENTRATION Routine 03/22/2019 2:32 Resul ts for this CHARGE PM HEAD WAITRESS procedure are i n the results section. SPIN/CONCENTRATION Routine 03/22/2019 2:32 Resul ts for this CHARGE PM HEAD WAITRESS procedure are i n the results section. AFB CULTURE + SMEAR CHRISSIE 03/22/2019 2:32 Resu lts for this (NON-SPUTUM) PM HEAD WAITRESS procedure are i n the results section. LEGIONELLA CULTURE Routine 03/22/2019 2:32 Resul ts for this PM HEAD WAITRESS procedure are i n the results section. FUNGUS CULTURE + CHRISSIE 03/22/2019 2:32 Results for this SMEAR PM HEAD WAITRESS procedure are i n the results section. BRONCHIAL CULTURE + CHRISSIE 03/22/2019 2:32 Resu lts for this GRAM STAIN PM HEAD WAITRESS procedure are i n the results section. FUNGUS CULTURE + Routine 03/22/2019 2:32 Results for this SMEAR PM HEAD WAITRESS procedure are i n the results section. AFB CULTURE + SMEAR Routine 03/22/2019 2:32 Resu lts for this (NON-SPUTUM) PM HEAD WAITRESS procedure are i n the results section. BRONCHIAL CULTURE + Routine 03/22/2019 2:32 Resu lts for this GRAM STAIN PM HEAD WAITRESS procedure are i n the results section. APTT Routine 03/22/2019 9:35 Results for this AM HEAD WAITRESS procedure are i n the results section. BASIC METABOLIC PANEL Routine 03/22/2019 9:35 Re sults for this (7) AM HEAD WAITRESS procedure are i n the results section. BLOOD CULTURE Routine 03/22/2019 9:35 Results fo r this AM HEAD WAITRESS procedure are i n the results section. BLOOD CULTURE Routine 03/22/2019 9:35 Results fo r this AM HEAD WAITRESS procedure are i n the results section. XR CHEST 1 VIEW Routine 03/22/2019 8:09 Results for this PORTABLE/BEDSIDE AM HEAD WAITRESS procedure a re in the results section. POCT-GLUCOSE METER Routine 03/22/2019 5:53 Resul ts for this AM HEAD WAITRESS procedure are i n the results section. CBC W/PLT COUNT & AUTO Routine 03/22/2019 1:58 R esults for this DIFFERENTIAL AM HEAD WAITRESS procedure are i n the results section. BASIC METABOLIC PANEL Routine 03/22/2019 1:58 Re sults for this (7) AM HEAD WAITRESS procedure are i n the results section. PHOSPHORUS Routine 03/22/2019 1:58 Results for this AM HEAD WAITRESS procedure are i n the results section. CBC W/PLT COUNT & AUTO Routine 03/22/2019 1:58 R esults for this DIFFERENTIAL AM HEAD WAITRESS procedure are i n the results section. MAGNESIUM STAT 03/22/2019 1:58 Results for this AM HEAD WAITRESS procedure are i n the results section. VANCOMYCIN LEVEL, Routine 03/22/2019 1:58 Result s for this TROUGH AM HEAD WAITRESS procedure are i n the results section. POCT-GLUCOSE METER Routine 03/22/2019 12:30 Resul ts for this AM HEAD WAITRESS procedure are i n the results section. BASIC METABOLIC PANEL Routine 03/21/2019 9:52 Re sults for this (7) PM HEAD WAITRESS procedure are i n the results section. TRANSFUSION SERVICE 03/21/2019 9:06 REPORT - SCAN PM HEAD WAITRESS BODY FLUID CULTURE + Routine 03/21/2019 7:34 Res ults for this GRAM STAIN PM HEAD WAITRESS procedure are i n the results section. TRIGLYCERIDES, PLEURAL Routine 03/21/2019 7:10 R esults for this FLUID PM HEAD WAITRESS procedure are i n the results section. PROTEIN, TOTAL, Routine 03/21/2019 7:10 Results for this PLEURAL FLUID PM HEAD WAITRESS procedure are in the results section. PH, BODY FLUID Routine 03/21/2019 7:10 Results f or this PM HEAD WAITRESS procedure are i n the results section. FUNGUS CULTURE + Routine 03/21/2019 7:10 Results for this SMEAR PM HEAD WAITRESS procedure are i n the results section. BODY FLUID CELL COUNT Routine 03/21/2019 7:10 Re sults for this WITH DIFFERENTIAL PM HEAD WAITRESS procedure are in the results section. LACTATE DEHYDROGENASE Routine 03/21/2019 7:09 Re sults for this (LD), PLEURAL FLUID PM HEAD WAITRESS procedur e are in the results section. GLUCOSE PLEURAL FLUID Routine 03/21/2019 7:09 Re sults for this PM HEAD WAITRESS procedure are i n the results section. ALBUMIN PLEURAL FLUID Routine 03/21/2019 7:09 Re sults for this PM HEAD WAITRESS procedure are i n the results section. US DRAINAGE CHEST WITH STAT 03/21/2019 6:25 R esults for this TUBE INSERTION PM HEAD WAITRESS procedure are in the results section. RETICULOCYTE COUNT Routine 03/21/2019 8:50 Resul ts for this AM HEAD WAITRESS procedure are i n the results section. RESPIRATORY PANEL [facility]HS Routine 03/21/2019 8:50 R esults for this AM HEAD WAITRESS procedure are i n the results section. RAPID INFLUENZA A&B STAT 03/21/2019 8:50 Resu lts for this SCREEN AM HEAD WAITRESS procedure are i n the results section. MRSA SCREEN STAT 03/21/2019 8:50 Results for this AM HEAD WAITRESS procedure are i n the results section. MAGNESIUM Add-On 03/21/2019 8:49 Results for this AM HEAD WAITRESS procedure are i n the results section. BASIC METABOLIC PANEL Routine 03/21/2019 8:49 Re sults for this (7) AM HEAD WAITRESS procedure are i n the results section. VITAMIN B12 AND FOLATE Routine 03/21/2019 8:49 R esults for this AM HEAD WAITRESS procedure are i n the results section. LACTATE DEHYDROGENASE Routine 03/21/2019 8:49 Re sults for this (LDH) AM HEAD WAITRESS procedure are i n the results section. IRON, TIBC, % SAT. Routine 03/21/2019 8:49 Resul ts for this (WITHOUT FERRITIN) AM HEAD WAITRESS procedure are in the results section. FERRITIN Routine 03/21/2019 8:49 Results for this AM HEAD WAITRESS procedure are i n the results section. POCT-GLUCOSE METER Routine 03/21/2019 5:34 Resul ts for this AM HEAD WAITRESS procedure are i n the results section. US ABDOMEN LIMITED Routine 03/21/2019 3:55 Resul ts for this AM HEAD WAITRESS procedure are i n the results section. (CELLAVISION MANUAL Routine 03/21/2019 2:03 Resu lts for this DIFF) AM HEAD WAITRESS procedure are i n the results section. CBC W/PLT COUNT & AUTO Routine 03/21/2019 2:03 R esults for this DIFFERENTIAL AM HEAD WAITRESS procedure are i n the results section. PHOSPHORUS Routine 03/21/2019 2:03 Results for this AM HEAD WAITRESS procedure are i n the results section. MAGNESIUM Routine 03/21/2019 2:03 Results for this AM HEAD WAITRESS procedure are i n the results section. CBC W/PLT COUNT & AUTO Routine 03/21/2019 2:03 R esults for this DIFFERENTIAL AM HEAD WAITRESS procedure are i n the results section. MAGNESIUM STAT Add-on 03/21/2019 12:18 Results for this AM HEAD WAITRESS procedure are i n the results section. BASIC METABOLIC PANEL Routine 03/21/2019 12:18 Re sults for this (7) AM HEAD WAITRESS procedure are i n the results section. POCT-GLUCOSE METER Routine 03/20/2019 11:46 Resul ts for this PM HEAD WAITRESS procedure are i n the results section. ECHOCARDIOGRAM REPORT 03/20/2019 9:22 - SCAN PM HEAD WAITRESS POCT-GLUCOSE METER Routine 03/20/2019 6:11 Resul ts for this PM HEAD WAITRESS procedure are i n the results section. BLOOD GAS, ARTERIAL STAT 03/20/2019 4:34 Resu lts for this PM HEAD WAITRESS procedure are i n the results section. MAGNESIUM STAT Add-on 03/20/2019 4:33 Results for this PM HEAD WAITRESS procedure are i n the results section. BASIC METABOLIC PANEL Routine 03/20/2019 4:33 Re sults for this (7) PM HEAD WAITRESS procedure are i n the results section. VANCOMYCIN LEVEL, STAT 03/20/2019 12:58 Result s for this TROUGH PM HEAD WAITRESS procedure are i n the results section. ECG 12-LEAD Routine 03/20/2019 12:42 PM HEAD WAITRESS Procedure Note - Interface, External Ris In - 03/20/2019 1:04 PM HEAD WAITRESS Ventricular Rate 95 BPM Atrial Rate 326 BPM QRS Duration 106 ms Q-T Interval 362 ms QTC Calculation(Bazett) 454 ms R Butterfield 15 degrees T Butterfield 134 degrees Atrial fibrillation Minimal voltage criteria for LVH, may be normal variant Nonspecific ST and T wave ab normality , probably digitalis effect Abnormal ECG When compared with ECG of 00:28, T wave inversion no longer e vident in Anterior leads ECG 12-LEAD Routine 03/20/2019 12:42 PM HEAD WAITRESS Resu lts for this procedure are i n the results section . POCT-GLUCOSE METER Routine 03/20/2019 12:14 PM HEAD WAITRESS Results for this procedure are i n the results section . 2D ECHO W/ DOPPLER STAT 03/20/2019 11:05 AM HEAD WAITRESS Results for this (CW/PW/COLOR) procedure are in the results section . CT CHEST WITHOUT IV STAT 03/20/2019 10:45 AM HEAD WAITRESS Results for this CONTRAST procedure are i n the results section . SPUTUM CULTURE + GRAM STAIN Routine 03/20/2019 6:31 AM HEAD WAITRESS Results for this procedure are i n the results section . TROPONIN I Routine 03/20/2019 5:49 AM HEAD WAITRESS Resu lts for this procedure are i n the results section . ABORH, MANUAL STAT 03/20/2019 5:48 AM HEAD WAITRESS Res ults for this procedure are i n the results section . POCT-GLUCOSE METER Routine 03/20/2019 5:44 AM HEAD WAITRESS Results for this procedure are i n the results section . XR CHEST 1 VIEW STAT 03/20/2019 4:05 AM HEAD WAITRESS R esults for this PORTABLE/BEDSIDE procedure a re in the results section . BLOOD GAS, ARTERIAL STAT 03/20/2019 3:14 AM HEAD WAITRESS Results for this procedure are i n the results section . BLOOD CULTURE Routine 03/20/2019 3:08 AM HEAD WAITRESS Res ults for this procedure are i n the results section . BLOOD CULTURE Routine 03/20/2019 3:08 AM HEAD WAITRESS Res ults for this procedure are i n the results section . TYPE AND SCREEN, AUTOMATED STAT 03/20/2019 3:00 AM HEAD WAITRESS Results for this procedure are i n the results section . FIBRINOGEN STAT 03/20/2019 3:00 AM HEAD WAITRESS Resu lts for this procedure are i n the results section . LACTIC ACID, VENOUS STAT 03/20/2019 3:00 AM HEAD WAITRESS Results for this procedure are i n the results section . PT/APTT Routine 03/20/2019 3:00 AM HEAD WAITRESS Resu lts for this procedure are i n the results section . PROTHROMBIN TIME/INR Routine 03/20/2019 3:00 AM HEAD WAITRESS Results for this procedure are i n the results section . TSH/FREE T4 IF INDICATED Routine 03/20/2019 3:00 AM HEAD WAITRESS Results for this procedure are i n the results section . HEMOGLOBIN A1C Routine 03/20/2019 3:00 AM HEAD WAITRESS Re sults for this procedure are i n the results section . B-TYPE NATRIURETIC FACTOR STAT 03/20/2019 3:00 AM HEAD WAITRESS Results for this (BNP) procedure are i n the results section . VANCOMYCIN LEVEL, RANDOM Routine 03/20/2019 3:00 AM HEAD WAITRESS Results for this procedure are i n the results section . CBC W/PLT COUNT & AUTO Routine 03/20/2019 2:59 AM HEAD WAITRESS Results for this DIFFERENTIAL procedure are i n the results section . CBC W/PLT COUNT & AUTO Routine 03/20/2019 2:59 AM HEAD WAITRESS Results for this DIFFERENTIAL procedure are i n the results section . LIPID PANEL Routine 03/20/2019 2:59 AM HEAD WAITRESS Resu lts for this procedure are i n the results section . TROPONIN I Routine 03/20/2019 2:59 AM HEAD WAITRESS Resu lts for this procedure are i n the results section . PHOSPHORUS STAT 03/20/2019 2:59 AM HEAD WAITRESS Resu lts for this procedure are i n the results section . MAGNESIUM STAT 03/20/2019 2:59 AM HEAD WAITRESS Resu lts for this procedure are i n the results section . HEPATIC FUNCTION PANEL STAT 03/20/2019 2:59 AM HEAD WAITRESS Results for this procedure are i n the results section . BASIC METABOLIC PANEL (7) STAT 03/20/2019 2:59 AM HEAD WAITRESS Results for this procedure are i n the results section . LEGIONELLA URINE ANTIGEN Routine 03/20/2019 2:23 AM HEAD WAITRESS Results for this procedure are i n the results section . STREP PNEUMONIAE ANTIGEN Routine 03/20/2019 2:23 AM HEAD WAITRESS Results for this procedure are i n the results section . URINALYSIS W/ REFLEX URINE Routine 03/20/2019 2:22 AM HEAD WAITRESS Results for this CULTURE procedure are i n the results section . OSMOLALITY, URINE Routine 03/20/2019 2:22 AM HEAD WAITRESS Results for this procedure are i n the results section . PROTEIN, RANDOM URINE Routine 03/20/2019 2:22 AM HEAD WAITRESS Results for this procedure are i n the results section . UREA NITROGEN, RANDOM URINE Routine 03/20/2019 2:22 AM HEAD WAITRESS Results for this procedure are i n the results section . CREATININE, RANDOM URINE Routine 03/20/2019 2:22 AM HEAD WAITRESS Results for this procedure are i n the results section . CHLORIDE, RANDOM URINE Routine 03/20/2019 2:22 AM HEAD WAITRESS Results for this procedure are i n the results section . SODIUM, RANDOM URINE Routine 03/20/2019 2:22 AM HEAD WAITRESS Results for this procedure are i n the results section . URINE CULTURE Routine 03/20/2019 2:22 AM HEAD WAITRESS Res ults for this procedure are i n the results section . POCT-GLUCOSE METER Routine 03/20/2019 12:39 AM HEAD WAITRESS Results for this procedure are i n the results section . 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 REPORT OF PROCEDURE - 01/28/2019 1:40 PM HEAD WAITRESS ENDOSCOPY SCAN RHYTHM STRIP - SCAN 01/28/2019 1:40 PM HEAD WAITRESS CBC W/PLT COUNT & AUTO Routine 01/24/2019 4:31 AM HEAD WAITRESS Results for this DIFFERENTIAL procedure are i n the results section . PHOSPHORUS STAT Add-on 01/24/2019 4:31 AM HEAD WAITRESS Resu lts for this procedure are i n the results section . MAGNESIUM STAT Add-on 01/24/2019 4:31 AM HEAD WAITRESS Resu lts for this procedure are i n the results section . BASIC METABOLIC PANEL (7) Routine 01/24/2019 4:31 AM HEAD WAITRESS Results for this procedure are i n the results section . CBC W/PLT COUNT & AUTO Routine 01/24/2019 4:31 AM HEAD WAITRESS Results for this DIFFERENTIAL procedure are i n the results section . TROPONIN I STAT 01/23/2019 9:59 PM HEAD WAITRESS Resu lts for this procedure are i n the results section . ECHOCARDIOGRAM REPORT - 01/23/2019 9:21 PM HEAD WAITRESS SCAN TROPONIN I STAT 01/23/2019 4:02 PM HEAD WAITRESS Resu lts for this procedure are i n the results section . B-TYPE NATRIURETIC FACTOR STAT 01/23/2019 10:13 AM HEAD WAITRESS Results for this (BNP) procedure are i n the results section . TROPONIN I STAT 01/23/2019 10:13 AM HEAD WAITRESS Resu lts for this procedure are i n the results section . TSH/FREE T4 IF INDICATED CHRISSIE 01/23/2019 10:13 AM HEAD WAITRESS Results for this procedure are i n the results section . ECG 12-LEAD STAT 01/23/2019 9:00 AM HEAD WAITRESS Resu lts for this procedure are i n the results section . MRA HEAD WITHOUT IV STAT 01/23/2019 8:01 AM HEAD WAITRESS Results for this CONTRAST procedure are i n the results section . CBC W/PLT COUNT & AUTO Routine 01/23/2019 4:59 AM HEAD WAITRESS Results for this DIFFERENTIAL procedure are i n the results section . MAGNESIUM STAT Add-on 01/23/2019 4:59 AM HEAD WAITRESS Resu lts for this procedure are i n the results section . BASIC METABOLIC PANEL (7) Routine 01/23/2019 4:59 AM HEAD WAITRESS Results for this procedure are i n the results section . CBC W/PLT COUNT & AUTO Routine 01/23/2019 4:59 AM HEAD WAITRESS Results for this DIFFERENTIAL procedure are i n the results section . POTASSIUM Routine 01/22/2019 7:43 PM HEAD WAITRESS Resu lts for this procedure are i n the results section . MR BRAIN WITHOUT IV Routine 01/22/2019 6:11 PM HEAD WAITRESS Results for this CONTRAST procedure are i n the results section . CT/CTA CAROTID Routine 01/22/2019 4:59 PM HEAD WAITRESS Re sults for this procedure are i n the results section . CTA BRAIN Routine 01/22/2019 4:59 PM HEAD WAITRESS Resu lts for this procedure are i n the results section . 2D ECHO W/ DOPPLER Routine 01/22/2019 1:16 PM HEAD WAITRESS Results for this (CW/PW/COLOR) procedure are in the results section . MAGNESIUM STAT Add-on 01/22/2019 4:17 AM HEAD WAITRESS Resu lts for this procedure are i n the results section . TROPONIN I Routine 01/22/2019 4:17 AM HEAD WAITRESS Resu lts for this procedure are i n the results section . HEMOGLOBIN A1C Routine 01/22/2019 4:17 AM HEAD WAITRESS Re sults for this procedure are i n the results section . LIPID PANEL Routine 01/22/2019 4:17 AM HEAD WAITRESS Resu lts for this procedure are i n the results section . CBC W/PLT COUNT & AUTO Routine 01/21/2019 11:26 PM HEAD WAITRESS Results for this DIFFERENTIAL procedure are i n the results section . PROTHROMBIN TIME/INR Routine 01/21/2019 11:26 PM HEAD WAITRESS Results for this procedure are i n the results section . VITAMIN B12 AND FOLATE Routine 01/21/2019 11:26 PM HEAD WAITRESS Results for this procedure are i n the results section . RPR Routine 01/21/2019 11:26 PM HEAD WAITRESS Resu lts for this procedure are i n the results section . TSH/FREE T4 IF INDICATED Routine 01/21/2019 11:26 PM HEAD WAITRESS Results for this procedure are i n the results section . TROPONIN I Routine 01/21/2019 11:26 PM HEAD WAITRESS Resu lts for this procedure are i n the results section . CBC W/PLT COUNT & AUTO Routine 01/21/2019 11:26 PM HEAD WAITRESS Results for this DIFFERENTIAL procedure are i n the results section . BASIC METABOLIC PANEL (7) Routine 01/21/2019 11:26 PM HEAD WAITRESS Results for this procedure are i n the results section . XR CHEST 1 VIEW Routine 01/21/2019 11:19 PM HEAD WAITRESS R esults for this PORTABLE/BEDSIDE procedure a re in the results section . after 10/07/2018 Results RHYTHM STRIP - SCAN (07/02/2019 12:50 [...] : TESTED AT 70 - 110 mg/dL [facility] [address] [facility], [id number]: Refrigerator Room Clerk/Psychic Reader ID = [id number] for [place] Specimen Blood Performing Organization Address City/State/Zipcode Phone Number [address] [phone] CENTER Comprehensive metabolic panel (06/09/2019 11:30 AM CDT)Only the most recent of10 resultswithin the time period is included. Protein, Total 6.7Comment: Specimen 6.0 - 8.3 gm/dL [facility] slightly hemolyzed [facility] Albumin 2.1 (L)Comment: Specimen 3.5 - 5.0 g/dL [facility] slightly hemolyzed [facility] Alkaline Phosphatase 202 (H) 40 - 150 U/L [facility]ICAL [facility] Total Bilirubin 1.2Comment: Specimen 0.2 - 1.2 mg/dL [facility] slightly hemolyzed [facility] Sodium 142 136 - 145 meq/L [facility] Potassium 4.4Comment: Specimen 3.5 - 5.1 meq/L [facility] slightly hemolyzed [facility] Chloride 107 98 - 107 meq/L [facility] CO2 30 (H) 22 - 29 meq/L [facility] BUN 25 (H) 7 - 21 mg/dL [facility] Creatinine 0.76Comment: Specimen 0.57 - 1.25 mg/dL [facility] slightly hemolyzed [facility] Glucose 108 (H) 70 - 105 mg/dL [facility] ER Calcium 7.9 (L) 8.4 - 10.2 mg/dL [facility] ER AST 77 (H)Comment: Specimen 5 - 34 U/L [facility] slightly hemolyzed [facility] ALT 86 (H)Comment: Specimen 6 - 55 U/L [facility] slightly hemolyzed [facility] C [facility] EGFR 103Comment: ESTIMATED mL/min/1.73 sq m [facility] GFR IS NOT ACCURATE [facility] CREATININE CLEARANCE IN PREDICTING GLOMERULAR FILTRATION RATE. ESTIMATED GFR IS NOT APPLICABLE FOR DIALYSIS PATIENTS. Specimen Blood Narrative Performed At Refrigerator Room Clerk ID - ELISSA M [facility] Performing Organization Address City/[facility] [place] [address] CENTER Potassium (06/05/2019 4:31 PM CDT)Only the most recent of2 resultswithin the time period is included. Potassium 3.9 3.5 - 5.1 meq/L [facility] Specimen Blood Narrative Performed At Refrigerator Room Clerk ID - BS [facility] Performing Organization Address City/[facility]/Zipcode Phone Number [address] [phone] [place] Basic Metabolic Panel (06/05/2019 6:01 AM CDT)Only the most recent of74 results within the time period is included. Sodium 145 136 - 145 meq/L [facility] Potassium 3.0 (L) 3.5 - 5.1 meq/L [facility] Chloride 101 98 - 107 meq/L [facility] CO2 38 (H) 22 - 29 meq/L [facility] BUN 28 (H) 7 - 21 mg/dL [facility] Creatinine 0.87 0.57 - 1.25 mg/dL [facility] Glucose 110 (H) 70 - 105 mg/dL [facility] Calcium 7.9 (L) 8.4 - 10.2 mg/dL [facility] EGFR 88Comment: ESTIMATED GFR IS mL/min/1.73 sq m [facility] NOT ACCURATE CREATININE [facility] CLEARANCE IN PREDICTING GLOMERULAR FILTRATION RATE. ESTIMATED GFR IS NOT APPLICABLE FOR DIALYSIS PATIENTS. Specimen Blood Narrative Performed At Refrigerator Room Clerk ID - PIAYA L [facility] Performing Organization Address City/State/Zipcode Phone Number [facility] [address] [place] [address] [facility] esoph swallow funct with cine video [...] MD Report Verified Date/Time:06/04/2019 15:08:42 Reading Location: [address] Reading Room Procedure Note Interface, External [...] Verified Date/Time: 06/04/2019 1 5:08:42 Reading Location: [facility] [address] [place] [address] Reading Room Performing Organization Address City/State/Zipcode Phone Number GE RIS CBC with platelet count + automated diff (06/04/2019 5:15 AM CDT)Only the most recent of56 resultswithin the time period is included. WBC 13.3 (H) 3.5 - 10.5 K/L [facility] RBC 4.12 (L) 4.63 - 6.08 M/L [facility] Hemoglobin 10.8 (L) 13.7 - 17.5 GM/DL [facility] Hematocrit 35.6 (L) 40.1 - 51.0 % [facility] MCV 86.4 79.0 - 92.2 fL [facility] MCH 26.2 25.7 - 32.2 pg [facility] MCHC 30.3 (L) 32.3 - 36.5 GM/DL [facility] RDW 20.1 (H) 11.6 - 14.4 % [facility] Platelets 240 150 - 450 K/CU MM [facility] MPV 12.3 9.4 - 12.4 fL [facility] nRBC 0 0 - 0 /100 WBC [facility] % Neutros 71 % [facility] % Lymphs 16 % [facility] % Monos 9 % [facility] HE ALTH [facility] % Eos 3 % [facility] ALTH [facility] % Baso 1 % [facility] # Neutros 9.45 (H) 1.78 - 5.38 K/L [facility] # Lymphs 2.08 1.32 - 3.57 K/L [facility] # Monos 1.24 (H) 0.30 - 0.82 K/L [facility] # Eos 0.43 0.04 - 0.54 K/L [facility] # Baso 0.07 0.01 - 0.08 K/L [facility] Immature Granulocytes-Relative 0 0 - 1 % C [facility] Specimen Blood Performing Organization Address City/State/Zipcode Phone Number [facility] [address] [place] [address] [place] US abdomen limited (06/04/2019 2:10 AM CDT)Only the most recent of2 results within the time period is included. Specimen Narrative Performed At FINAL REPORT Find That File History: Elevated LFTs Abdominal ultrasound dated 06/04/2019 [...] Date/Time: 06/04/2019 0 4:00:37 Performing Organization Address City/[facility]/Zipcode Phone Number [facility] Ammonia (06/03/2019 2:56 PM CDT)Only the most recent of2 resultswithin the time period is included. Ammonia 82 (H) 18 - 72 mol/L [facility] Specimen Blood Narrative Performed At Refrigerator Room Clerk ID - BS [facility] Performing Organization Address City/[facility]/Zipcode Phone Number [facility] MEDICAL [address] [place] [address] CENTER Magnesium (06/03/2019 5:25 AM CDT)Only the most recent of55 resultswithin the time period is included. Magnesium 2.2Comment: Specimen slightly 1.6 - 2.6 mg/dL [facility] hemolyzed MEDICAL [place] Specimen Blood Narrative Performed At Refrigerator Room Clerk ID - BS [facility] Performing Organization Address City/[facility]/Zipcode Phone Number [address] [address] [place] Blood gas, arterial (06/02/2019 8:15 AM CDT)Only the most recent of23 results within the time period is included. pH, Arterial 7.57 (H) 7.35 - 7.45 [facility] pCO2, Arterial 50 (H) 35 - 45 mmHg [facility] pO2, Arterial 68 (L) 80 - 90 mmHg [facility] O2 Sat, Arterial 95.6 (L) 96.0 - 97.0 % [facility] HCO3, Arterial 45 (HH) 21 - 29 mmol/L [facility] Base Excess, Arterial 20.4 (H) -2.0 - 3.0 mmol/L [facility] Patient Temperature 36.7 C [facility] FIO2 21.0 % [facility] Specimen Blood, Arterial Performing Organization Address [facility] Phone Number [address] [address] [place] Vancomycin level, trough (06/02/2019 1:24 AM CDT)Only the most recent of5 resultswithin the time period is included. Vancomycin Tr 32.2 (HH) 10.0 - 20.0 ug/mL [facility] Specimen Blood Narrative Performed At Refrigerator Room Clerk ID - SANDRA Richards [facility] Performing Organization Address City/[facility]/Zipcode Phone Number [address] [address] [place] ECHOCARDIOGRAM REPORT - SCAN (06/01/2019 9:20 PM CDT) Narrative Performed At This result has an attachment that is no t available. 2D Echo W/Doppler(CW/PW/Color) (06/01/2019 2:50 PM CDT) Ejection Fraction [facility]LAB [facility] [place] [place] Specimen Narrative Performed At Transthoracic Echocardiography Report (T TE) [facility] HEART[facility] Demographics Patient Roya Valdes of Study06/01/2019 Male Visit [id number] Unknown Room [id number] Number Date of 1955Referring PhysicianOle Dominguez MD Age 63 year(s)Convex Grinder Operator Isael Middleton Service Coordinator Aliya Yee Interpreting Stephan Conklin MD Procedure [...] of Study 06/01/2019 Gender Male Visit Number [id number] Race Unknown [facility] C724 Number Date of 1955 Referri Physician Ole Dominguez MD Age 63 year(s) Sonogra pher Abed Kane Service Coordinator Aliya Yee Interpr eting Isaac Gonzalez MD [...] T CI: 2.59 l/min/m^2 Performing Organization Address City/[facility] Hospitalcoid Phone Number [facility]ART[facility] MRSA screen (06/01/2019 10:47 AM CDT)Only the most recent of2 resultswithin the time period is included. Result No MRSA isolated [facility] Specimen Nasal Performing Organization Address [facility] Phone Number [address] [address] CENTER Phosphorus (06/01/2019 10:46 AM CDT)Only the most recent of48 resultswithin the time period is included. Phosphorus 4.3 2.3 - 4.7 mg/dL [facility] Specimen Blood Narrative Performed At Refrigerator Room Clerk ID - CAROLINA F [facility] MED [facility]ENTER Performing Organization Address [facility] Phone Number [address] [address] C[place] Prothrombin time/INR (05/31/2019 10:31 AM CDT)Only the most recent of9 results within the time period is included. Protime 17.8 (H) 11.9 - 14.2 seconds [facility] INR 1.5 <=5.9 [facility] Specimen Blood Narrative Performed At Effective 07/24/2018: PT Reference Range [facility] Change New: 11.9-14.2Previous: 11.7-14.7 RECOMMENDED COUMADIN/WARFARIN INR THERAPY RANGES STANDARD DOSE: 2.0-3.0Includes: PROPHYLAXIS for venous thrombosis, systemic embolization; TREATMENT for venous thrombosis and/or pulmonary embolus. HIGH RISK: Target INR is 2.5-3.5 for patients wiht mechanical heart valves. Performing Organization Address City/State/Zipcode Phone Number [address] [address] C[place] Hepatitis panel, acute (05/31/2019 8:24 AM CDT) Hep A IgM Reactive (A) Nonreactive [facility] Hep B C IgM Nonreactive Nonreactive [facility] Hepatitis C Ab Nonreactive Nonreactive [facility] HBsAg Screen Nonreactive Nonreactive [facility] Specimen Blood Narrative Performed At Refrigerator Room Clerk ID - SONIA Lloyd [facility] Performing Organization Address City/[facility] Phone Number [address] [address] C[place] B-type Natriuretic Factor (BNP) (05/31/2019 8:23 AM CDT)Only the most recent of 4 resultswithin the time period is included. BNP 1,536 (H) 0 - 100 pg/mL [facility] Specimen Blood Narrative Performed At Refrigerator Room Clerk ID Sultana Richards [facility] Performing Organization Address City/[facility]/Zipcode Phone Number [address] [address] C[place] Vancomycin level, random (05/31/2019 8:23 AM CDT)Only the most recent of2 resultswithin the time period is included. Vancomycin Rm 18.6 ug/mL [facility] Specimen Blood Narrative Performed At Reference Range: No Normals [facility] Refrigerator Room Clerk ID - ALMA Richards Performing Organization Address City/State/Zipcode Phone Number [facility] [address] [place] [address] [place] Blood Culture - Routine (Right Venipuncture) (05/31/2019 8:22 AM CDT)Only the most recent of8 resultswithin the time period is included. Result No growth in 5 days [facility] Specimen Blood Performing Organization Address [facility] Hospital[facility]oid Phone Number [address] [address] [place] ECG 12 lead (05/31/2019 7:21 AM CDT)Only the most recent of9 resultswithin the time period is included. Specimen Narrative Performed At Ventricular Rate 83 BPM GE MUSE Atrial Rate 76 BPM QRS Duration 122 ms Q-T Interval 376 ms QTC Calculation(Bazett) 441 ms R Butterfield 9 degrees T Butterfield 168 degrees Atrial fibrillation Left ventricular hypertrophy [...] 376 ms QTC Calculation(Bazett) 441 ms R Butterfield 9 degrees T Butterfield 168 degrees Atrial fibrillation Left ventricular hypertrophy with QRS wi dening Nonspecific ST and T wave abnormality Abnormal ECG When compared with ECG of 30-MAY-2019 19 :25, No significant change was found Confirmed by MD YO YOCHAI ([id number]) on 06/02/2019 7:02:10 AM Performing Organization Address City/[facility]/Zipcode Phone Number GE MUSE Urea Nitrogen, random urine (05/31/2019 3:26 AM CDT)Only the most recent of2 resultswithin the time period is included. Urea Nitrogen, Ur 332 mg/dL [facility] Specimen Urine Narrative Performed At Reference Range: No Normals [facility] Refrigerator Room Clerk ID - PIAYA L Performing Organization Address [facility]/Zipcode Phone Number [address] [address] [place] Sodium, random urine (05/31/2019 3:26 AM CDT)Only the most recent of2 results within the time period is included. Sodium Urine 59 meq/L [facility] Specimen Urine Narrative Performed At Reference Range: No Normals [facility] Refrigerator Room Clerk ID - PIAYA L Performing Organization Address [facility] Phone Number [address] [address] [place] Creatinine, random urine (05/31/2019 3:26 AM CDT)Only the most recent of2 resultswithin the time period is included. Creatinine, Ur 24.9 mg/dL [facility] Specimen Urine Narrative Performed At Reference Range: No Normals [facility] Refrigerator Room Clerk ID - PIAYA L Performing Organization Address [facility] Phone Number [address] [address] [place] XR chest 1 view portable / bedside (05/30/2019 9:03 PM CDT)Only the most recent of44 resultswithin the time period is included. Specimen Narrative Performed At FINAL REPORT GE [facility] History: Right-sided effusion noted on o [...] 2:00:23 Performing Organization Address City/State/Zipcode Phone Number Find That File XR chest 2 views (05/08/2019 12:14 PM CDT) Specimen Narrative Performed At FINAL REPORT Find That File EXAMINATION: PA and lateral views of the [...] 08:51:36 Reading Location: [facility] Reading Dennise wallace 1 - B01.627 Procedure Note Interface, External [...] Verified Date/Time: 05/09/2019 0 8:51:36 Reading Location: [facility] Reading Dennise wallace 1 - B01.627 Performing Organization Address City/State/Zipcode Phone Number GE RIS Prealbumin (04/23/2019 3:53 AM HEAD WAITRESS) Prealbumin 7 (L) 14 - 45 mg/dL [facility] Specimen Blood Narrative Performed At Refrigerator Room Clerk ID - ELISSA Wallace [facility] CENTER Performing Organization Address [facility] Phone Number [address] [address] [place] TRANSFUSION SERVICE REPORT - SCAN (04/19/2019 6:02 PM HEAD WAITRESS)Only the most recent of6 resultswithin the time period is included. Narrative Performed At This result has an attachment that is no t available. Prepare Leuko-Red RBC (04/18/2019 11:54 PM HEAD WAITRESS)Only the most recent of6 results within the time period is included. CROSSMATCH COMPATIBLE SAFETRACE TX Unit ABO A Neg [facility] TX UNIT NUMBER [id number] [facility]AFET[facility]ACE TX Status TX_TIMEINCHART [facility] [place] Blood Bank Product RED BLOOD CELLS [facility] [place] PRODUCT CODE [id number] [facility] [place] Specimen Other Performing Organization Address [facility] Phone Number SAFETRACE TX Transfuse Leuko-Red RBC (04/17/2019 11:41 AM HEAD WAITRESS)Only the most recent of14 resultswithin the time period is included.aPTT (04/17/2019 3:30 AM HEAD WAITRESS)Only the most recent of40 resultswithin the time period is included. PTT 41.6 (H) 22.5 - 36.0 seconds [facility] Specimen Blood Performing Organization Address [facility]code Phone Number [address] [address] [place] Hemoglobin and hematocrit (04/17/2019 12:27 AM HEAD WAITRESS)Only the most recent of2 resultswithin the time period is included. Hemoglobin 7.7 (L) 13.7 - 17.5 GM/DL [facility] Hematocrit 23.6 (L) 40.1 - 51.0 % [facility] Specimen Blood Narrative Performed At Refrigerator Room Clerk ID - [id number] [facility] Performing Organization Address [facility] Hospitalcode Phone Number [address] [address] CENTER Prepare plasma (04/16/2019 11:54 PM HEAD WAITRESS) Unit ABO A Pos SAFETRACE TX UNIT NUMBER [id number] SAFETRACE TX Status TX_TIMEINCHART [facility] [place] Blood Bank Product FFP SAF[facility]ACE TX PRODUCT CODE [id number] [facility] [place] Specimen Blood Performing Organization Address [facility] Phone Number SAFETRACE TX Prepare cryoprecipitate (04/16/2019 11:54 PM HEAD WAITRESS) Unit ABO A Pos [facility]AFETRACE TX UNIT NUMBER [id number] SAFETRACE TX Status TX_TIMEINCHART [facility]AFET[facility]ACE TX Blood Bank Product CRYOPRECIPITATE SAFETRACE [place] PRODUCT CODE [id number] [facility] [place] Specimen Blood Performing Organization Address [facility] Phone Number SAFETRACE TX PERIPHERAL VASCULAR REPORT - SCAN (04/16/2019 9:23 PM HEAD WAITRESS) Narrative Performed At This result has an attachment that is no t available. Calcium, Ionized (04/16/2019 3:28 AM HEAD WAITRESS)Only the most recent of6 resultswithin the time period is included. Calcium, Ion 1.09 (L) 1.12 - 1.27 mmol/L [facility] pH, Blood 7.44 [facility] Specimen Blood Performing Organization Address [facility] Phone Number [facility] MEDICAL [address] [place] [address] CENTER Central Line (04/15/2019 5:48 PM HEAD WAITRESS) Narrative Performed At Enoch Chung NP 5:50 PM Central Line Date/Time: 04/15/2019 5:48 PM Performed by: Enoch Chung NP Authorized by: Enoch Chung NP Consent: The procedure was performed in an emergent situation. Site marked: the operative site was mian ed Imaging studies: imaging studies availab le (Ultrasound) Required items: required blood products, implants, devices, and special equipment available Patient identity confirmed: arm band, pr ovided demographic data, hospital-assigned identification number and anonymous protocol, patient vented/unresponsive Time out: Immediately prior to procedure a "time out" was called to verify the correct patient, procedure, equipmen t, business support coordinator and site/side marked as required. [...] Venous doppler arm, left (04/15/2019 11:30 AM HEAD WAITRESS) [facility] ECHO HEAR TLAB [facility] [place] Specimen Impressions Performed At [facility] HEART[facility] Left Impression 1. There is total deep [...] are measured in cm Narrative Performed At PV LAB - Upper Extremities Veins [facility] HEART[facility] Demographics Patient Name JOHN VERGARA Date of Study04/15/2019 [id number] Visit Number [id number] Gender Male Accession Number [id number] Date of Birth1955 [facility] Room [id number] TANIA Patten SonographerAidee Ruggiero, RVTInterpreting Physician DeborahMD Procedure Type of Study: Veins: Upper Extremities [...] External Ris In - 04/16/2019 10:57 AM HEAD WAITRESS PV LAB - Upper Extremities Veins Demographics Patient Name JOHN VERGARA ate of Study 04/15/2019 A ge 63 Visit Number [id number] G amalia Male Accession Number [id number] D ate of 1955 Referring Alicia Calvert brisa Number [id number] Physician TANIA Mccracken Convex Grinder Operator Aidee Ruggiero, RVT I nterpreting Pearl [...] City/State/Zipcode Phone Number [facility] E[facility] HEARTLAB [facility] Thromboelastograph (TEG) (04/15/2019 11:28 AM HEAD WAITRESS) TEG Activated Clotting Time 5.0 4.0 - 7.0 minutes I [facility] TEG Fibrinogen Activity 75.9 (H) 61.0 - 73.0 degrees [facility] TEG Platelet Aggregation 69.6 (H) 55.0 - 65.0 MM [facility] TEG Fibrinolysis 0.1 0.0 - 5.0 % [facility] TEG-H Activated Clotting Time 5.1 4.0 - 7.0 minutes [facility] TEG-H Fibrinogen Activity 76.0 (H) 61.0 - 73.0 degrees [facility] TEG-H Platelet Aggregation 65.7 (H) 55.0 - 65.0 MM [facility] TEG-H Fibrinolysis 4.1 0.0 - 5.0 % [facility] Specimen Blood Performing Organization Address City/[facility] Phone Number [facility] [address] [place] [address] CENTER Transfuse plasma (04/15/2019 11:03 AM HEAD WAITRESS)Only the most recent of2 resultswithin the time period is included.Transfuse cryoprecipitate (04/15/2019 9:22 AM HEAD WAITRESS) Only the most recent of2 resultswithin the time period is included.Lactic Acid, Arterial (04/15/2019 4:05 AM HEAD WAITRESS) Lactate, Art 1.2 0.5 - 2.2 mmol/L [facility] Specimen Blood, Arterial Narrative Performed At Refrigerator Room Clerk ANGELI Wallace [facility] MED ICAL CENTER Performing Organization Address City/[facility] Phone Number [facility] [address] [place] [address] CENTER PT/aPTT (04/15/2019 1:58 AM HEAD WAITRESS)Only the most recent of4 resultswithin the time period is included. Protime 19.8 (H) 11.9 - 14.2 seconds [facility] INR 1.7 <=5.9 [facility] PTT 41.1 (H) 22.5 - 36.0 seconds [facility] Specimen Blood Narrative Performed At Effective 07/24/2018: PT Reference Range [facility] Change New: 11.9-14.2Previous: 11.7-14.7 RECOMMENDED COUMADIN/WARFARIN INR THERAPY RANGES STANDARD DOSE: 2.0-3.0Includes: PROPHYLAXIS for venous thrombosis, systemic embolization; TREATMENT for venous thrombosis and/or pulmonary embolus. HIGH RISK: Target INR is 2.5-3.5 for patients wiht mechanical heart valves. Performing Organization Address City/[facility] Phone Number [address] [address] C[place] Fibrinogen (04/15/2019 1:58 AM HEAD WAITRESS)Only the most recent of2 resultswithin the time period is included. Fibrinogen 177 (L) 225 - 434 mg/dl [facility] Specimen Blood Performing Organization Address [facility] Phone Number [address] [address] CENTER Cortisol (04/15/2019 12:07 AM HEAD WAITRESS) Cortisol, Total 10.6 3.7 - 19.4 ug/dL [facility] Specimen Blood Narrative Performed At Refrigerator Room Clerk ID - BS [facility] MED ICAL CENTER Performing Organization Address [facility] Phone Number [address] [address] CENTER AFB culture + smear (non-sputum) (04/14/2019 6:48 PM HEAD WAITRESS)Only the most recent of10 resultswithin the time period is included. Result No acid-fast bacilli isolated in [facility] 42 days CENTER AFB Smear No acid fast bacilli seen [facility] Specimen BAL Performing Organization Address [facility] Phone Number [address] [address] CENTER Fungus culture + smear (04/14/2019 6:48 PM HEAD WAITRESS)Only the most recent of11 resultswithin the time period is included. Result <1+ Ana albicans (A) [facility] Fungus Smear No fungi seen [facility] Specimen BAL Performing Organization Address [facility] Phone Number [address] [address] CENTER SPIN/CONCENTRATION CHARGE (04/14/2019 6:48 PM HEAD WAITRESS)Only the most recent of4 resultswithin the time period is included. Concentration charged Done [facility] Specimen BAL Performing Organization Address [facility] Phone Number [address] [address] [place] Bronchial culture + gram stain (04/14/2019 6:48 PM HEAD WAITRESS)Only the most recent of3 resultswithin the time period is included. Result No growth [facility] Gram Stain Result 1+ WBCs [facility] Gram Stain Result No organisms seen [facility] Specimen BAL Performing Organization Address [facility] Phone Number [address] [address] [place] Potassium-Stat Lab (04/14/2019 5:49 PM HEAD WAITRESS)Only the most recent of3 results within the time period is included. Potassium 3.4 (L) 3.6 - 5.5 meq/L [facility] Specimen Blood, Arterial Performing Organization Address [facility] Phone Number [address] [address] [place] Sodium Na-Stat Lab (04/14/2019 5:49 PM HEAD WAITRESS)Only the most recent of3 results within the time period is included. Sodium 138 135 - 148 meq/L [facility] Specimen Blood, Arterial Performing Organization Address City/[facility] Phone Number [address] [address] CENTER Glucose-Stat Lab (04/14/2019 5:49 PM HEAD WAITRESS)Only the most recent of3 resultswithin the time period is included. Glucose 100 70 - 110 mg/dL [facility] Specimen Blood, Arterial Performing Organization Address City/[facility] Phone Number [address] [address] [place] HGB/HCT (H&H)-Stat Lab (04/14/2019 5:49 PM HEAD WAITRESS)Only the most recent of3 resultswithin the time period is included. Hemoglobin 9.0 (L) 13.0 - 16.8 g/dL [facility] Hematocrit 26.0 (L) 40.0 - 50.0 % [facility] Specimen Blood, Arterial Performing Organization Address [facility] Phone Number [address] [address] [place] Anaerobic culture (04/14/2019 5:15 PM HEAD WAITRESS)Only the most recent of5 results within the time period is included. Result No anaerobes isolated [facility] Specimen Tissue Performing Organization Address [facility] Phone Number [address] [address] [place] Surgically obtained culture + gram stain (04/14/2019 5:15 PM HEAD WAITRESS)Only the most recent of5 resultswithin the time period is included. Result No growth [facility] Gram Stain Result 1+ WBCs [facility] Gram Stain Result No organisms seen [facility] Specimen Tissue Performing Organization Address [facility] Phone Number [address] [address] [place] Tissue Exam (04/14/2019 4:54 PM HEAD WAITRESS) Case Report Surgical Pathology Report Case: [id number] [facility] Authorizing Provider:Fernando Esquivel MD Collected: 04/14/2019 1654 [facility] Ordering Location: [facility] Received:04/15/2019 0933 PERIOPERATIVE SERVICES Pathologist: Gay Puentes MD Specimens: A) - Pleura, PARIETAL PLEURA B) - Lung, Right Lower Lobe, Right lower lobe C) - Lung, Right Middle Lobe, Right middle lobe D) - Lung, Right Upper Lobe, Right upper lobe DIAGNOSIS [facility] A. PLEURA, RIGHT, PARIETAL PLEURA, DECORTICATION : [facility] - CHRONIC FIBROSING PLEURITIS. - [...] STIC ALTERATION. Signing Pathologist Direct Phone Line: [phone] CPT Code(s) 39896 X 4 [facility] CLINICAL HISTORY Empyema, right. [facility] SPECIMEN SOURCE A. Pleura. B. Lung, right [facility] lower lobe. C. Lung, right [facility] middle lobe. D. Lung, right upper lobe GROSS DESCRIPTION A. Received in formalin labe led with the patient's name, accession number and "parietal pleura" is a 1.5 x 0.8 x 0.1 cm portion of devlin- pink fibromembranous tissue, which is entirely submitted in A1. [facility] B. Received in formalin labe led with [...] submitted in D1. PA/ew MICROSCOPIC DESCRIPTION Performed. [facility] Gross assessment was [facility] performed at [place], Department of [facility] Pathology, [address] [place] [address], Technical component was [facility] performed at [place], Department of [facility] Pathology, [address] [place] [address], Professional component [facility] was performed at [place], Department of [facility] Pathology, [address] [place] [address], Specimen Tissue Tissue - Structure of lower lobe of righ t lung (body structure) Tissue - Structure of middle lobe of rig ht lung (body structure) Tissue - Structure of upper lobe of righ t lung (body structure) Performing Organization Address City/State/Zipcode Phone Number [address] [address] [place] Cytology (04/14/2019 3:48 PM HEAD WAITRESS)Only the most recent of2 resultswithin the time period is included. Case Report Medical Cytology Report Case: [id number] [facility] Authorizing Provider:Fernando Esquivel MD Collected: 04/14/2019 1548 [facility] Ordering Location: [facility] Received:04/15/2019 0913 PERIOPERATIVE SERVICES Pathologist: Sean Piedra MD Specimen:Pleural, Ri ght, Multi loculated pleural effusions DIAGNOSIS RIGHT PLEURAL FLUID (CYTOSPINS): [facility] - NEGATIVE FOR MALIGNANCY [facility] PREDOMINANTLY BLOOD Signing Pathologist Direct Phone Line: CPT Code(s) 33104 [facility] CLINICAL DATA Right multi loculated [facility] pleural effusions, [facility] pneumonia, acute respiratory failure SPECIMEN SOURCE RIGHT PLEURAL FLUID [facility] GROSS DESCRIPTION 750 mls bloody; 4 cytospins [facility] I [facility] Collected: [id number] [facility] MEDICAL CE NTER Received: [id number] STATEMENT OF ADEQUACY Satisfactory [facility] Gross assessment was [facility] performed at [place], Department of [facility] Pathology, [address] [place] [address], Technical component was [facility] performed at [place], Department of [facility] Pathology, [address] [place] [address], Professional component was [facility] performed at [place], Department of [facility] Pathology, [address] [place] [address], Specimen Body Fluid Narrative Performed At This result has an attachment that is no t available. Performing Organization Address City/[facility] Phone Number [address] [address] CENTER Type and screen, automated (04/14/2019 1:01 AM HEAD WAITRESS)Only the most recent of2 resultswithin the time period is included. ABO/RH AUTOMATED (BEAKER) A NEGATIVE [facility] Ab Scrn NEGATIVE [facility] Specimen Blood Performing Organization Address City/[facility] Phone Number [address] [address] Hepatic function panel (04/13/2019 4:39 AM HEAD WAITRESS)Only the most recent of3 results within the time period is included. Protein, Total 5.5 (L) 6.0 - 8.3 gm/dL [facility] Albumin 1.8 (L) 3.5 - 5.0 g/dL [facility] Total Bilirubin 1.1 0.2 - 1.2 mg/dL [facility] Bilirubin, Direct 0.7 (H) 0.1 - 0.5 mg/dL [facility] Alkaline Phosphatase 157 (H) 40 - 150 U/L [facility] AST 38 (H) 5 - 34 U/L [facility] ALT 34 6 - 55 U/L [facility] Specimen Blood Narrative Performed At Refrigerator Room Clerk ID - CHELSEY [facility] Performing Organization Address City/[facility]/Zipcode Phone Number [address] [address] CENTER REPORT OF PROCEDURE - ENDOSCOPY URL (04/11/2019 10:15 AM HEAD WAITRESS) Narrative Performed At This result has an attachment that is no t available. Body fluid culture + gram stain (04/09/2019 12:10 PM HEAD WAITRESS)Only the most recent of 4 resultswithin the time period is included. Result No growth [facility] Gram Stain Result <1+ WBCs [facility] Gram Stain Result <1+ gram negative rods [facility] Specimen Body Fluid Performing Organization Address City/[facility]/Zipcode Phone Number [address] [address] CENTER XR abdomen / KUB 1 view (04/04/2019 3:58 PM HEAD WAITRESS)Only the most recent of4 resultswithin the time period is included. Specimen Narrative Performed At FINAL REPORT GE RIS Abdomen date 04/04/2019 Comment:Frontal view of the abdomen demonstrates a feeding tube present with tip noted in the descending duodenum. Signed: Tomasa Foss MD Report Verified Date/Time:04/04/2019 18:03:16 Reading Location: [facility] C013W [facility] Room Procedure Note Interface, External Ris In - 04/04/2019 6:05 PM HEAD WAITRESS FINAL REPORT Abdomen date 04/04/2019 Comment: Frontal view of the abdomen de monstrates a feeding tube present with tip noted in the descending duodenum. Signed: Tomasa Foss MD Report Verified Date/Time: 04/04/2019 1 8:03:16 Reading Location: [facility] C013W [facility] Performing Organization Address City/State/Zipcode Phone Number GE RIS Troponin I (03/31/2019 1:59 PM HEAD WAITRESS)Only the most recent of11 resultswithin the time period is included. Troponin I 0.20 (HH) 0.00 - 0.03 ng/mL [facility] Specimen Blood Narrative Performed At Troponin I (TnI) levels must be interpreted [facility] in the context of the presenting [...] acidosis, acute neurological disease, and persistent tachyarrhythmia. Refrigerator Room Clerk ID - SONIA Lloyd Performing Organization Address City/[facility] Phone Number [address] [address] CENTER Lactic acid, venous (03/31/2019 1:59 PM HEAD WAITRESS)Only the most recent of5 results within the time period is included. Lactate, Venous 1.7 0.5 - 2.2 mmol/L [facility] Specimen Blood Narrative Performed At Refrigerator Room Clerk ID - SONIA Lloyd [facility] Performing Organization Address City/[facility]/Zipcode Phone Number [address] [address] chest for pulmonary embolus (03/30/2019 11:54 PM HEAD WAITRESS) Specimen Narrative Performed At FINAL REPORT GE [...] This exam was performed according to the [facility] dose optimization program which includes [...] External Ris In - 03/31/2019 12:29 AM HEAD WAITRESS FINAL REPORT Comparison: CT chest dated 03/17/2019 [...] This exam was performed according to the [facility] dose optimization program which includes [...] 0:25:44 Performing Organization Address City/State/Zipcode Phone Number Find That File CT brain without IV contrast (03/30/2019 11:54 PM HEAD WAITRESS)Only the most recent of2 resultswithin the time period is included. Specimen Narrative Performed At FINAL REPORT Find That File EXAM: CT, BRAIN, WITHOUT CONTRAST CLINICAL INDICATION: [...] External Ris In - 03/31/2019 4:22 AM HEAD WAITRESS FINAL REPORT EXAM: CT, BRAIN, WITHOUT CONTRAST [...] 4:20:24 Performing Organization Address City/State/Zipcode Phone Number [facility] POCT-HEMATOCRIT (03/30/2019 8:53 PM HEAD WAITRESS) POC-Hematocrit 28 (L)Comment: TESTED AT 40 - 50 % [address] [facility] [address] Specimen Blood Performing Organization Address [facility]/Zipcode Phone Number [address] [address] [place] POCT-HEMOGLOBIN (03/30/2019 8:53 PM HEAD WAITRESS) POC-Hemoglobin 9.5 (L)Comment: TESTED AT 13.0 - 16.8 g/dL [address] [place] [address]TRPQQY AT [address] [address] Specimen Blood Performing Organization Address [facility] Phone Number [address] [address] [place] POCT-GLUCOSE (03/30/2019 8:53 PM HEAD WAITRESS) POC-Glucose 249 (H)Comment: TESTED AT 70 - 110 mg/dL [address] [address] Specimen Blood Performing Organization Address [facility] Phone Number [address] [address] [place] POC-Sodium (03/30/2019 8:53 PM HEAD WAITRESS) POC-Sodium 147Comment: TESTED AT [facility] 135 - 148 meq/L [address] [address] Specimen Blood Performing Organization Address City/[facility]/Zipcode Phone Number [address] [address] [place] POC-Potassium (03/30/2019 8:53 PM HEAD WAITRESS) POC-Potassium 4.1Comment: TESTED AT [facility] 3.6 - 5.5 meq/L [address] [address] Specimen Blood Performing Organization Address City/[facility]/Zipcode Phone Number [address] [place] [phone] [place] POC-Calcium ionized (03/30/2019 8:53 PM HEAD WAITRESS) POC-Calcium Ionized 1.63 ()Comment: 1.12 - 1.27 mmol/L [facility] TESTED AT [address] [address] Specimen Blood Performing Organization Address City/[facility]/Zipcode Phone Number [address] [address] [place] POC-Blood gases, arterial (03/30/2019 8:53 PM HEAD WAITRESS) Temp. Celsius-POC 36.1 [facility] FIO2-POC 100Comment: TESTED AT [address] [address] pH, Arterial-POC 7.320 (L) 7.350 - 7.450 [facility] PCO2, Arterial-POC 61.8 (H) 35.0 - 45.0 mm Hg [facility] PO2, Arterial-POC 409.0 (H) 80.0 - 90.0 mm Hg [facility] SO2, Arterial-POC 100.0 (H) 96.0 - 97.0 % [facility] HCO3, Arterilal-POC 32.2 (H) 21.0 - 29.0 meq/L [facility] BE, Arterial-POC 6.0 (H) -2.0 - 3.0 meq/L [facility] Specimen Blood Performing Organization Address City/State/Zipcode Phone Number [address] [address] [place] ECHOCARDIOGRAM REPORT - SCAN (03/26/2019 9:11 PM HEAD WAITRESS) Narrative Performed At This result has an attachment that is no t available. IR Drainage Catheter Change (03/26/2019 7:30 PM HEAD WAITRESS) Specimen Narrative Performed At FINAL REPORT GE RIS Fluoroscopic guided replacement of a right chest tube. History: Patient's right chest tube has been retracted and is poorly draining.. Modality: Fluoroscopy Sedation: None Anesthesia:Two percent Lidocaine without epinephrine. Approach:Existing right chest tube Estimated blood loss:< 5 cc. Specimen: None. mangle roll operator: Nato Dang MD. Stone Finisher: Lauren. Fluoroscopy Time: 0.5 min. Reference [...] ove r the guidewire. A new 8.5 Macedonian Cook multipurpose drainage cathet er was advanced [...] MD Report Verified Date/Time:03/28/2019 14:57:26 Reading Location: [place] [address] Angio Body Reading Room Procedure Note Interface, External Ris In - 03/28/2019 2:59 PM HEAD WAITRESS FINAL REPORT Fluoroscopic guided replacement of a ri ght chest tube. History: Patient's right chest tube has been retracted and is poorly draining.. Modality: Fluoroscopy Sedation: None Anesthesia: Two percent Lidocaine witho ut epinephrine. Approach: Existing right chest tube Estimated blood loss: < 5 cc. Specimen: None. mangle roll operator: Nato Dang MD. Stone Finisher: Lauren. Fluoroscopy Time: 0.5 min. Reference [...] ove r the guidewire. A new 8.5 Macedonian Cook multipurpose drainage cathet er was advanced [...] Verified Date/Time: 03/28/2019 1 4:57:26 Reading Location: [facility] P048 Angio Body Reading Room Performing Organization Address City/State/Zipcode Phone Number Find That File 2D Echo W/Doppler(CW/PW/Color) (03/25/2019 7:04 PM HEAD WAITRESS) Ejection Fraction [facility] TLAB [employer] [facility] Specimen Narrative Performed At Transthoracic Echocardiography Report (T TE) [facility] Demographics Patient NameSJOHN FARLEY Date of Study03/25/2019 Gender Male Visit [id number] Race Luis Carlos krausen [id number] Number Date of 1955 Referring PhysicianJerald Christensen [...] External Ris In - 03/26/2019 8:35 AM HEAD WAITRESS Transthoracic Echocardiography Report (TTE) Demographics Patient Name JOHN VERGARA Date of Study 03/25/2019 Gender Male Visit Number [id number] Race Unknown Room Num [facility] 7102 Number Date of 1955 Referrin g Physician Jerald Christensen Age 63 year(s) Sonograp [...] Performing Organization Address City/State/Zipcode Phone Number [email or web address] chest without IV contrast (03/25/2019 6:00 PM HEAD WAITRESS)Only the most recent of2 resultswithin the time period is included. Specimen Narrative Performed At FINAL REPORT Find That File CT of the Chest, abdomen and pelvis [...] MD Report Verified Date/Time:03/25/2019 18:26:29 Reading Location: [facility] C013Y CT Body R [facility] Room Procedure Note Interface, External Ris In - 03/25/2019 6:29 PM HEAD WAITRESS FINAL REPORT CT of the Chest, abdomen [...] Verified Date/Time: 03/25/2019 1 8:26:29 Reading Location: [facility] B1 C013Y CT Body R eading Room Performing Organization Address City/State/Zipcode Phone Number Find That File CT abdomen/pelvis without iv contrast (03/25/2019 6:00 PM HEAD WAITRESS) Specimen Narrative Performed At FINAL REPORT Find That File CT of the Chest, abdomen and pelvis [...] MD Report Verified Date/Time:03/25/2019 18:26:29 Reading Location: [facility] C013Y CT Body R [facility] Room Procedure Note Interface, External Ris In - 03/25/2019 6:29 PM HEAD WAITRESS FINAL REPORT CT of the Chest, abdomen [...] Verified Date/Time: 03/25/2019 1 8:26:29 Reading Location: [facility] B1 C013Y CT Body R eading Room Performing Organization Address City/State/Zipcode Phone Number GE RIS Urinalysis w/Microscopic + Reflex to Culture (03/25/2019 9:08 AM HEAD WAITRESS)Only the most recent of2 resultswithin the time period is included. Color, UA Yellow [facility] Clarity, UA Hazy [facility] Specific [place], UA 1.018 1.001 - 1.035 [facility] pH, UA 5.5 5.0 - 8.0 [facility] Protein, UA 50 mg/dL (A) Negative [facility] Glucose, UA Negative Negative [facility] Ketones, UA Negative Negative [facility] Bilirubin, UA Negative Negative [facility] Blood, UA Small (A) Negative [facility] Nitrite, UA Negative Negative [facility] Leukocytes, UA Large (A) Negative [facility] Urobilinogen, UA 6.0 (H) 0.2 - 1.0 mg/dL [facility] RBC, UA <1 /HPF [facility] WBC, UA 54 /HPF [facility] Bacteria, UA Few [facility] Mucus Few [facility] Squam Epithel, UA <1 /HPF [facility] Hyaline Casts, UA 1 /LPF [facility] Specimen Source [facility] Specimen Urine Narrative Performed At Refrigerator Room Clerk ID - [auto] [facility] Refrigerator Room Clerk ID - [email or web address] Performing Organization Address City/State/Zipcode Phone Number [address] [address] [place] Sputum Culture + Gram Stain (03/25/2019 9:08 AM HEAD WAITRESS)Only the most recent of2 resultswithin the time period is included. Result See comment [facility] Gram Stain Result 4+ WBCs [facility] Gram Stain Result 0-5 epithelial cells [facility] Gram Stain Result No organisms seen [facility] Specimen Sputum Narrative Performed At 2+ Yeast [facility] No Normal respiratory rigo present Performing Organization Address City/State/Zipcode Phone Number [address] [address] [place] Urine culture (03/25/2019 9:08 AM HEAD WAITRESS)Only the most recent of2 resultswithin the time period is included. Result No growth [facility] Specimen Urine Performing Organization Address City/State/Zipcode Phone Number [facility] [address] [place] [address] CENTER EEG EXTENDED MONITORING 40 - 60 MINUTES (03/24/2019 11:23 AM HEAD WAITRESS) Specimen Narrative Performed At Date(s) of EE03/24/2019 GE RIS DATE OF REPORT:03/24/2019 ACC: [id number] EEG Number: [id number] Test Location: Inpatient ICU Start time: 03/24/2019 10:42 Stop time: 03/24/2019 11:23 ICD-10: R56.9 CPT Code: 64757 HISTORY: 63 y.o. male with hypertens ion, [...] aftermath of ear lier seizure activity, other LABORATORY ASST insult, or toxic-metabolic derangeme nts. An EEG without epileptiform discharges does not exclude the possibili ty of epilepsy. If the clinical suspicion of epilepsy re spencer, consider additional EEG recordings. Nando Metz MD Neurophysiology Fellow Elia Martinez M.D., FACNS, FAAN, CALIN Syed Professor of Neurology, [facility] Medicine Director, [facility] e Epilepsy Center Head, [facility] [place], [place] Procedure Note Interface, External Ris In - 03/24/2019 12:32 PM HEAD WAITRESS Date(s) of EE03/24/2019 DATE OF REPORT: 03/24/2019 ACC: [id number] EEG Number: [id number] Test Location: Inpatient ICU Start time: 03/24/2019 10:42 Stop time: 03/24/2019 11:23 ICD-10: R56.9 CPT Code: 86168 HISTORY: 63 y.o. male with hypertensio n, [...] aftermath of ear lier seizure activity, other LABORATORY ASST insult, or toxic-metabolic derangeme nts. An EEG without epileptiform discharges does not exclude the possibility of epilepsy. If the clinical suspicion of epilepsy re spencer, consider additional EEG recordings. Nando Metz MD Neurophysiology Fellow Elia Martinez M.D., FACDEB, FAAN, CALIN S Professor of Neurology, [facility] Director, [facility] Epilepsy Center Head, [facility] [place], [place] Performing Organization Address City/State/Zipcode Phone Number GE RIS Manual Differential (03/23/2019 5:58 AM HEAD WAITRESS)Only the most recent of2 results within the time period is included. % Neutros 93 % [facility] % Lymphs 4 % [facility] % Monos 2 % [facility] % Atypical Lymphs 1 (H) 0 - 0 % [facility] # Neutros 22.69 (H) 1.78 - 5.38 K/ul [facility] # Lymphs 0.98 (L) 1.32 - 3.57 K/ul [facility] # Monos 0.49 0.30 - 0.82 K/uL [facility] # Atypical Lymphs 0.24 (H) 0.00 - 0.00 K/uL [facility] Total Counted 100 [facility] WBC Morphology Normal [facility] Platelet Morphology Normal [facility] An[facility]ocytosis 1+ few [facility] Poikilocytes 1+ few [facility] Ovalocytes 1+ few [facility] Rei Cells 1+ few [facility] Artifact Present [facility] Platelet Conc Adequate [facility] Specimen Blood Narrative Performed At Refrigerator Room Clerk ID - Mariela Overholt [facility] User comments: Slide comments: Performing Organization Address City/[facility]/Zipcode Phone Number [address] [address] CENTER Body fluid cell count with differential (03/22/2019 2:37 PM HEAD WAITRESS)Only the most recent of3 resultswithin the time period is included. Appearance Bloody (A) Clear [facility] Color Red (A) Colorless, Straw [facility] RBCs 88,000 (H) <=1 /cu mm [facility] Adjusted WBC Count 36,367 (H) <=5 /cu mm [facility] Lining Cells 364 (H) <=1 /cu mm [facility] % Segs 85 % [facility] % Lymphs 4 % [facility] % Monos 10 % [facility] % Eos 1 % [facility] % Baso 0 % [facility] Container Body Fluid EDTA Tube [facility] Specimen Body Fluid Performing Organization Address City/State/Zipcode Phone Number [facility] [address] [place] [address] CENTER Triglycerides, Pleural Fluid (03/22/2019 2:36 PM HEAD WAITRESS)Only the most recent of3 resultswithin the time period is included. TRIGLYCERIDES, PLEURAL 35 See Note: mg/dL [facility] Comment: INCORPORATED Reference Range: CHYLOUS: >110 NONCHYLOUS:<50 SAMPLE SLIGHTLY LIPEMIC. SAMPLE MODERATELY HEMOLYZED. Specimen Body Fluid Narrative Performed At Performing Lab [facility] EZ [facility] [address] [address] [place] [address] Alia Luna MD, PhD, SOTO Performing Organization Address [facility] Number [facility] [place], [place] [address] INCORPORATED [address] Blurb Protein, Total, Pleural Fluid (03/22/2019 2:36 PM HEAD WAITRESS)Only the most recent of3 resultswithin the time period is included. PROTEIN, TOTAL, PLEURAL FLUID 2.6 [facility] Specimen Body Fluid Performing Organization Address [facility] [place] [address] INCOR[place]ATED [address] [facility] Lactate Dehydrogenase (LD), Pleural Fluid (03/22/2019 2:36 PM HEAD WAITRESS)Only the most recent of3 resultswithin the time [...] At Performing Lab [facility] EZ [facility] [address] [address] [place] [address] Alia Luna MD, PhD, SOTO Performing Organization Address [facility] Phone [place] [address] INCORPORATED [address] [address] Glucose Pleural Fluid (03/22/2019 2:36 PM HEAD WAITRESS)Only the most recent of3 results within the time period is included. Glucose, Pleural Fluid 29 mg/dL [facility] Comment: INCORPORATED SAMPLE SLIGHTLY LIPEMIC. SAMPLE MODERATELY HEMOLYZED. Reference range approximates that found in serum . Specimen Body Fluid Narrative Performed At Performing Lab [facility] [address] [address] [place] [address] Alia Luna MD, PhD, SOTO Performing Organization Address [facility] Phone Number [facility] [place] [address] [facility] pH, body fluid (03/22/2019 2:36 PM HEAD WAITRESS)Only the most recent of3 resultswithin the time period is included. pH, Body Fluid 7.5 [facility] PH FLUID TYPE Body fluid [facility] Comment: Reference range: Reference ranges have not been established on is type of fluid for this test. Specimen Body Fluid Narrative Performed At Performing Lab [facility] [employer] DIAGNOSTIC [facility] *RYLEY [employer] [place], [address] [place] [address] Dr. Guill[place], [place] Pearl Kent MD, PhD Performing Organization Address [facility] Number [facility] [place] [address] [address] [facility] Adenosine Deaminase, Fluid (03/22/2019 2:36 PM HEAD WAITRESS)Only the most recent of2 resultswithin the time [...] of this test have been determined by [employer], [place].This test s hould not be used for diagnosis without confirmation b y other medically established means. Specimen Body Fluid Narrative Performed At Performing Lab [facility] [employer] DIAGNOSTIC [facility] 15 [employer] [place] [employer], [address] [place] [address] Dr. Guill[place], [place] Pearl Kent MD, PhD Performing Organization Address [facility] Number [employer] DIAGNOSTIC [place] [address] [facility] Albumin Pleural Fluid (03/22/2019 2:35 PM HEAD WAITRESS)Only the most recent of2 results within the time period is included. Albumin, Pleural Fluid 0.8 [facility] Specimen Body Fluid Performing Organization Address City/State/Zipcode Phone Number [facility], [place] [address] [address] [facility] Legionella culture (03/22/2019 2:32 PM HEAD WAITRESS) Result No Legionella species isolated C [facility] Specimen BAL Performing Organization Address City/State/Zipcode Phone Number [place] [address] [place] [address] CENTER US drainage chest with tube insertion (03/21/2019 6:25 PM HEAD WAITRESS) Specimen Narrative Performed At FINAL REPORT [facility] Ultrasound guided insertion of bilatera l pigtail chest tube catheters. History: Bilateral loculated pleural effusions. Modality: Ultrasound Sedation: None Anesthesia:Two percent Lidocaine without epinephrine. Approach:Bilateral mid axillary line Estimated blood loss:< 5 cc. Specimen: Left bedside. mangle roll operator: Nato Dang MD. Stone Finisher: None. Technique: Informed written consent was [...] a large loculated right pleural effusion. [facility] axillary line was marked, prepped with correcting, draped in the u sual sterile fashion. After local anesthesia was achieved with lidoc tiera small skin incision was made along the right midaxillary line at a low intercostal space. Under direct ultrasound guidance an 8 [facility] skater pigtail drain was advanced [...] patient 's left chest and an 8 Macedonian skater pigtail drain was placed in a sim ilar fashion and connected to the atrium pleura. The patient tolerated the procedure well without evidence of immediate competition. Impression: Technically successful and uncomplicated placement of bilateral pigtail chest tubes under ultrasound guidance. Signed: Nato Dang MD Report Verified Date/Time:03/21/2019 19:48:47 Reading Location: [place] [address] Angio Body Reading Room Procedure Note Interface, External Ris In - 03/21/2019 7:50 PM HEAD WAITRESS FINAL REPORT Ultrasound guided insertion of bilatera l pigtail chest tube catheters. History: Bilateral loculated pleural eff usions. Modality: Ultrasound Sedation: None Anesthesia: Two percent Lidocaine witho ut epinephrine. Approach: Bilateral mid axillary line Estimated blood loss: < 5 cc. Specimen: Left bedside. mangle roll operator: Nato Dang MD. Stone Finisher: None. Technique: Informed written consent was [...] a large loculated right pleural effusion. [facility] axillary line was marked, prepped with [...] patient 's left chest and an 8 Macedonian skater pigtail drain was placed in a sim ilar fashion and connected to the atrium pleura. The patient tolerated the procedure well without evidence of immediate competition. Impression: Technically successful and uncomplicated placement of bilateral pigtail chest tubes under ultrasound es dance. Signed: Nato Dang MD Report Verified Date/Time: 03/21/2019 1 9:48:47 Reading Location: [facility] P048 Angio Body Reading Room Performing Organization Address City/State/Zipcode Phone Number Find That File Respiratory Panel [facility] (03/21/2019 8:50 AM HEAD WAITRESS) Human Metapneumovirus Not detected Not detected, [facility] Equivocal [facility] MED[facility] Rhinovirus Not detected Not detected, [facility] Equ[employer]ocal [facility] Influenza A Not detected Not detected, [facility] Equ[employer]ocal [facility] INFLUENZA A (NO SUBTYPE) [facility] Influenza A subtype H1 [facility] Influenza A Subtype H3 [facility] Influenza A Subtype H1-2009 [facility] Influenza B Not detected Not detected, [facility] [employer]ocal [facility] Respiratory Syncytial Virus Not detected Not detected, [facility] Equivocal [facility] Parainfluenza Virus 1 Not detected Not detected, [facility] Equ[employer]ocal [facility] Parainfluenza Virus 2 Not detected Not detected, [facility] [employer] [facility] Parainfluenza virus 3 Not detected Not detected, [facility] [employer] [facility] Parainfluenza Virus 4 Not detected Not detected, [facility] Equ[employer]ocal [facility] Adenovirus Not detected Not detected, [facility] [employer] [facility] Coronavirus 229E Not detected Not detected, [facility]ocal [facility] Coronavirus HKU1 Not detected Not detected, [facility] [employer] [facility] Coronavirus NL63 Not detected Not detected, [facility] [employer] [facility] Coronavirus OC43 Not detected Not detected, [facility] [employer] [facility] Bordetella Pertussis Not detected Not detected, [facility] Equivocal [facility] Chlamydophila Pneumoniae Not detected Not detected, [facility] Equivocal [facility] Mycoplasma Pneumoniae Not detected Not detected, [facility] [employer] [facility] Specimen Nasopharyngeal Narrative Performed At Other viruses and bacteria not targeted by [facility] this PCR panel cannot be excluded; therefore clinical correlation and follow up of serology, culture results, and other molecular studies is required. The results are not intended to be used as the sole means for clinical diagnosis or patient management decisions. This sample was tested at the [facility] Molecular Diagnostics Laboratory using the [employer] Respiratory Panel. It is FDA cleared [...] A and/or Influenza B. Performing Organization Address City/[facility] Phone Number [address] [address] CENTER Reticulocyte count (03/21/2019 8:50 AM HEAD WAITRESS) % Retic 1.9 (H) 0.5 - 1.8 % [facility] Specimen Blood Narrative Performed At Refrigerator Room Clerk ID - [id number] [facility]ENTER Performing Organization Address [facility] Phone Number [place] [phone] [place] [address] CENTER Rapid Influenza A&B Screen (03/21/2019 8:50 AM HEAD WAITRESS) Rapid Influenza A Antigen Negative Negative, Inconclusive [facility] Rapid influenza B Antigen Negative Negative, Inconclusive [facility] Specimen Nasal Performing Organization Address City/[facility] Phone Number [address] [address] [place] Vitamin B12 and Folate (03/21/2019 8:49 AM HEAD WAITRESS)Only the most recent of2 results within the time period is included. Vitamin B12 >2000 (H) 213 - 816 pg/mL [facility] Folate 17.3 >=7.0 ng/mL [facility] Specimen Blood Narrative Performed At Refrigerator Room Clerk ID - ELISSA Wallace [facility] ICAL [place] Performing Organization Address [facility] Phone Number [address] [address] [place] Iron, TIBC, % sat. (without ferritin) (03/21/2019 8:49 AM HEAD WAITRESS) Iron 39.0 (L) 40.0 - 160.0 ug/dL [facility] TIBC 113 (L) 250 - 450 ug/dL [facility] Iron % Saturation 35 20 - 55 % [facility] Specimen Blood Narrative Performed At Refrigerator Room Clerk ID - ELISSA Wallace [facility] [place] Performing Organization Address City/[facility] Phone Number [address] [address] [place] Lactate dehydrogenase (LDH) (03/21/2019 8:49 AM HEAD WAITRESS) LDH 300 (H) 125 - 220 U/L [facility] Specimen Blood Narrative Performed At Refrigerator Room Clerk ID - ELISSA [facility] Performing Organization Address City/[facility] Phone Number [facility] [address] [place] [address] CENTER Ferritin (03/21/2019 8:49 AM HEAD WAITRESS) Ferritin 1,076 (H) 5 - 275 ng/mL [facility] Specimen Blood Narrative Performed At Refrigerator Room Clerk ID - ELISSA Wallace [facility] Performing Organization Address City/State/Zipcode Phone Number [facility] [address] [place] [address] [place] ECHOCARDIOGRAM REPORT - SCAN (03/20/2019 9:22 PM HEAD WAITRESS) Narrative Performed At This result has an attachment that is no t available. 2D Echo W/Doppler(CW/PW/Color) (03/20/2019 11:05 AM HEAD WAITRESS) Ejection Fraction [facility] Specimen Narrative Performed At Transthoracic Echocardiography Report (T TE) [facility] CourseHorseESSON [facility] Demographics Patient JOHN Valdes Date of Study03/20/2019 Gender Male Visit [id number] Race Unk nown [id number] Number Date of 1955 Referring Physician Age [...] severity assessment is unreliable . Aortic Valve Oaok-mt-bpzdcbjr AoV cusp calcification. Mi ld aortic stenosis. [...] External Ris In - 03/20/2019 3:29 PM HEAD WAITRESS Transthoracic Echocardiography Report (TTE) Demographics Patient Name JOHN VERGARA Date of Study 03/20/2019 Gender Male Visit Number [id number] Race Unknown Room Num [facility] 7102 Number Date of 1955 Eileen perdomo Physician Age 63 year(s) Sonograp her Gabrielle Melhem RDCS [facility] Ziyad Bentley MD Physicia n Procedure Type of Study TTE procedure:2DECHO W DOPPLE R(CW/PW/COLOR) (STAT) Indications:Sustained or non sustained A [...] severity assessment is unreliable . Aortic Valve Nqaa-dh-ainejuls AoV cusp calcification. Mild aortic sten osis. [...] T CI: 3.5 l/min/m^2 Performing Organization Address City/[facility]/Zipcode Phone Number [facility] MKCKESSON CPACS ABORH, manual (03/20/2019 5:48 AM HEAD WAITRESS) ABO Grouping A [facility] Rh Factor NEG [facility] Specimen Blood Performing Organization Address [facility] Phone Number [address] [address] TSH/Free T4 If Indicated (03/20/2019 3:00 AM HEAD WAITRESS)Only the most recent of3 resultswithin the time period is included. TSH 3.06 0.35 - 4.94 uIU/mL [facility] Specimen Blood Narrative Performed At Refrigerator Room Clerk ID - BS [facility]ENTER Performing Organization Address [facility] Hospital[facility]oid Phone Number [address] [address] CENTER Hemoglobin A1c (03/20/2019 3:00 AM HEAD WAITRESS)Only the most recent of2 resultswithin the time period is included. Hemoglobin A1C 6.2 (H) 4.3 - 6.1 % [facility] Specimen Blood Performing Organization Address [facility]/Zipcode Phone Number [address] [address] CENTER Lipid panel (03/20/2019 2:59 AM HEAD WAITRESS)Only the most recent of2 resultswithin the time period is included. Triglycerides 60Comment: Specimen slightly mg/dL [facility] hemolyzed [facility] Cholesterol 55Comment: Specimen slightly mg/dL [facility] hemolyzed [facility] HDL 15 mg/dL [facility] LDL Calculated 28 mg/dL [facility] Specimen Blood Narrative Performed At Triglyceride Reference Range: [facility] Low Risk <150 [id number] High Risk 200-499 Very High Risk>=500 Cholesterol Reference Range: Low Risk <200 Apyilhtmeh701-855 High Risk>240 HDL Cholesterol Reference Range: Low Risk >=60 High Risk <40 LDL Cholesterol Reference Range: Optimal<100 Near Uwboyoh669-585 Eqcbzzeoci563-170 Crox521-059 Very High >=190 Refrigerator Room Clerk ID - SANDRA Maurice Specimen slightly icteric Performing Organization Address City/[facility] Phone Number [address] [address] CENTER Strep pneumoniae antigen (03/20/2019 2:23 AM HEAD WAITRESS) Strep pneumoniae Presumptive negative Presumptive negative [facility] Una [facility] Antigen for pneumococcal for pneumococcal [facility] ICA pneumonia - see comment pneumonia - see CENTER comment, Presumptive negative for pneumococcal meningitis - see comment Specimen Urine Narrative Performed At Presumptive negative for pneumococcal [facility] pneumonia, suggesting no current or recent pneumococcal infection. Infection due to S. pneumoniae cannot be ruled out since the antigen present in the sample may be below the detection limit of the test. Performing Organization Address City/[facility] Phone Number [address] [address] [place] Legionella antigen, urine (03/20/2019 2:23 AM HEAD WAITRESS) Legionella Urine Antigen Negative - see [facility] commentComment: Negative [facility] for L. pneumophila serogroup 1 antigen, suggesting no recent or current infection with this serogroup. Legionellosis cannot be ruled out since other serogroups and species may cause disease. Specimen Urine Performing Organization Address City/[facility]/Zipcode Phone Number [address] [address] CENTER Protein, random urine (03/20/2019 2:22 AM HEAD WAITRESS) Protein, Urine 72 (H) 0 - 14 mg/dL [facility] Specimen Urine Narrative Performed At Refrigerator Room Clerk ID - BS [facility]ENTER Performing Organization Address City/State/Zipcode Phone Number [address] [address] [place] Osmolality, urine (03/20/2019 2:22 AM HEAD WAITRESS) Osmolality, Ur 540 40-1,400 mOsm/kg [facility] Specimen Urine Performing Organization Address [facility]/Zipcode Phone Number [address] [address] [place] Chloride, random urine (03/20/2019 2:22 AM HEAD WAITRESS) ChlorideUr <20 meq/L [facility] Specimen Urine Narrative Performed At Reference Range: No Normals [facility] Refrigerator Room Clerk ID - BS Performing Organization Address [facility] Phone Number [address] [address] [place] ECHOCARDIOGRAM REPORT - SCAN (01/23/2019 9:21 PM HEAD WAITRESS) Narrative Performed At This result has an attachment that is no t available. MRA head without IV contrast (01/23/2019 8:01 AM HEAD WAITRESS) Specimen Narrative Performed At FINAL REPORT So[facility] MRV Head CLINICAL HISTORY:Stroke, follow up concern for transverse sinus thrombosis, need MRV please TECHNIQUE: MRV of the head utilizing 2-D jupl-lb-bthpnx technique. COMPARISON: CTA 01/22/2019 FINDINGS: There is [...] External Ris In - 01/23/2019 8:29 AM HEAD WAITRESS FINAL REPORT MRV Head CLINICAL HISTORY:Stroke, follow up concern for transverse sinus thrombosis, need MRV please TECHNIQUE: MRV of the head utilizing 2-D fqop-kl-gvrdoq technique. COMPARISON: CTA 01/22/2019 FINDINGS: There is [...] 8:26:36 Performing Organization Address City/State/Zipcode Phone Number Find That File MR brain without IV contrast (01/22/2019 6:11 PM HEAD WAITRESS) Specimen Narrative Performed At FINAL REPORT Find That File MR, BRAIN, WITHOUT CONTRAST INDICATION: Stroke, follow [...] External Ris In - 01/22/2019 7:28 PM HEAD WAITRESS FINAL REPORT MR, BRAIN, WITHOUT CONTRAST INDICATION: [...] 9:25:11 Performing Organization Address City/State/Zipcode Phone Number [facility] CTA carotid (01/22/2019 4:59 PM HEAD WAITRESS) Specimen Narrative Performed At FINAL REPORT [facility] CLINICAL HISTORY: Neuro deficit, acute, stroke suspected [...] External Ris In - 01/24/2019 2:56 PM HEAD WAITRESS FINAL REPORT CLINICAL HISTORY: Neuro deficit, acute, [...] 9:16:06 Performing Organization Address City/State/Zipcode Phone Number Find That File CTA brain (01/22/2019 4:59 PM HEAD WAITRESS) Specimen Narrative Performed At FINAL REPORT Find That File CLINICAL HISTORY: Neuro deficit, acute, stroke suspected [...] External Ris In - 01/22/2019 7:18 PM HEAD WAITRESS FINAL REPORT CLINICAL HISTORY: Neuro deficit, acute, [...] 9:16:06 Performing Organization Address City/State/Zipcode Phone Number Find That File Transthoracic 2D echo w/ doppler (cw/pw/color) (01/22/2019 1:16 PM HEAD WAITRESS) Ejection Fraction [facility] Specimen Narrative Performed At Transthoracic Echocardiography Report (T TE) [facility] MKCKESSON [facility] Demographics Patient JOHN Valdes Date of Study01/22/2019 Gender Male Visit [id number] Race Unknown [id number] Number Date of 1955 ReferringCHRISTOPHER GOODRICH Physician Age 63 year(s) [facility] Fredi Eller, LAY, RDCS,RVT,RDMS Service Coordinator Aliya YeeInterpreting Lyn Mike MD [facility] Procedure Type of Study TTE procedure:2DECHO [...] of 1.82 cm2. 4. Mild mitral regurgitation. 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 5. Aortic [...] severity assessment is unreliable . Aortic Valve Krrh-jq-fupladtb AoV cusp calcification. Mi ld aortic stenosis. Ao V area at rest by continuity equation is in the ra nge of 1.82 cm2. Preserved stroke volume . Mitral Valve Mild MV leaflet thickening. Se giles mitral annular and subvalvular ca lcification. Mi ld mitral regurgitation. Mi cl-xn-whnfdhws mitral stenosis secondary to MAC. MV area [...] External Ris In - 01/23/2019 10:36 AM HEAD WAITRESS Transthoracic Echocardiography Report (TTE) Demographics Patient Name JOHN VERGARA Date of St udy 01/22/2019 Gender Male Visit Number [id number] Race Unknown [place] [address] Number Date of 1955 Referring BRITTON GOODRICH Physician Age 63 year(s) Sonographe gracie Eller, NB, RDCS,RVT,RDMS Service Coordinator Aliya Hobbsi MD Isaac Ponce Physician Procedure Type of Study TTE procedure:2DECHO [...] severity assessment is unreliable . Aortic Valve Mccr-uj-rkjihhkq AoV cusp calcification. Mild aortic sten osis. AoV area at rest by continuity equation is in the range of 1.82 cm 2. Preserved stroke volume. Mitral Valve Mild MV leaflet thickening. Severe mitral an nular and subvalvular calcification. Mild mitral regu rgitation. Gesz-cg-fsahzgtc mitral stenosis secondary to MAC. MV area [...] T CI: 2.42 l/min/m^2 Performing Organization Address City/[facility]/Zipcode Phone Number [facility]ON [facility] (01/21/2019 11:26 PM HEAD WAITRESS) RPR Nonreactive Nonreactive [facility] Specimen Blood Performing Organization Address City/State/Zipcode Phone Number [facility] MEDICAL [address] [place] [address] CENTER after 10/07/2018 Insurance Payer Benefit Plan / Group Subscriber ID Type Phone A nena DAIGLE xxxxxxxxxxx (Home) [place] [address] Advance Directives For more information, please contact:[place] [address] [address] [place], [place] [phone] Code Status Date Activated Date Inactivated Comments Full Code 05/30/2019 8:01 PM 06/09/2019 10:53 PM This code status was determined by: Patient Full Code 03/19/2019 11:39 PM 04/25/2019 7:15 PM This code status was determined by: Patient Full Code 01/21/2019 8:37 PM 01/24/2019 4:42 PM This code status was determined by: Patient
[2019-10-08 06:38] LABS: Absolute Lymphocytes (CBC) 1.1 K/uL (0.7-4.9); Basophils % 0.6 % (0-1.3); Hematocrit 31.5 % (39.6-49.0); Lymphocytes % 10.8 % (15.3-44.8); MPV 10.5 fL (7.6-11.3); RBC Red Blood Cell Count 4.09 M/uL (4.33-5.43)
--- OUTSIDE RECORDS SUMMARY | 2019-10-08 06:40 | XMS REPORT | Continuity of Care Document ---
:1955 Author Organization [facility] t Address [address] [place] [place] [id number] Care Team Providers Name Role Phone Pcp Primary Care Physician Unavailable Thanh Edmond MD Attending Clinician Doctor Unassigned, Name Attending Clinician Unavailable Mukesh Palafox MD Attending Clinician Delaney Horne MD Attending Clinician Alberto CAMERON, Ammy Attending Clinician Leonor Drake MD Attending Clinician Mukesh PALAFOX Attending Clinician Unavailable Essie CAMERON Attending Clinician Nia Lambert Attending Clinician Darryl CAMERON Attending Clinician EDILMA ZAMUDIO Attending Clinician Unavailable Edilma Zamudio MD Attending Clinician Evelyn Lora MD Attending Clinician Laya Tabares MD, Devonte Attending Clinician [phone] Irineo Aj MD Attending Clinician Hal CAMERON Attending Clinician Sangita Breaux MD Attending Clinician Anh CAMERON Attending Clinician Bob Andrews MD Attending Clinician Checo Holguin MD Attending Clinician Miranda Chavez CRNA Attending Clinician [phone] Kadeem Peña MD Attending Clinician Fara CAMERON Attending Clinician Ricardo Hamilton MD Attending Clinician Hilario CAMERON Attending Clinician FARA Attending Clinician Unavailable DELANEY HORNE Admitting Clinician Unavailable EDILMA ZAMUDIO Admitting Clinician Unavailable HILARIO Admitting Clinician Unavailable Payers Payer Name Policy Policy Number Effective Expiration Source Type Date Date AMBETTERAMBETTER xxxxxxxxxxx [facility] Problems Condition Condition Condition Status Onset Resolution Last Treating Co mments Source Name Details Category Date Date Treatment Clinician Date Volume Volume Disease Active 2020-[address] [facility] overload overload 4-03 [facility]: Medical 00 [place] Delirium Delirium Disease Active 2020-0 [facility] Medical 00 [place] Dysphagia Dysphagia Disease Active 2020-[address] 2-22 [facility] - 00:[facility]: Medical 00 [place] Severe Severe Disease Active 2020-[address] [facility] [...] 1-24 [facility] - diastolic diastolic 00:00: Medi asleem CHF CHF 00 Center (congestiv (congestiv e heart e heart failure), failure), NYHA class NYHA class 4 4 Atrial Atrial Disease Active [facility] fibrillati fibrillati -24 [facility] - on on 00:00: Medical 00 Center Pneumonia Pneumonia Disease Active [facility] -24 [facility] - 00:[facility]: Medical 00 [place] Hydropneum Hydropneum Disease Active C HI [facility] othorax othorax -24 [facility] - 00:[facility]: Medical 00 Center Acute Acute Disease Active [facility] metabolic metabolic - Luke s - encephalop encephalop 00:00: Me dical athy athy 00 Center Acute Acute Disease Active [facility] respirator respirator - Ebonie kes - y failure y failure 00:00: Medi saleem with with 00 Center hypoxia hypoxia and and hypercapni hypercapni a a Hypovolemi Hypovolemi Disease Active C HI [facility] c shock c shock [facility] History of Past Illness Condition Condition [...] Date Stop Date Source Natural father Hypertension [facility] Natural mother Diabetes [facility] Social History Social Habit Start Date Stop Date Quantity Comments Source History of tobacco 1967-01-[address] [facility] - use 00:00:00 day smoker Medical Center History SDOH [facility] - Alcohol Binge Medical [address] Sex Assigned At [facility] Cigarettes smoked 2019-04-14 2019-04-[address] [facility] - current (pack per 00:00:00 00:00:00 Medical Center day) - Reported Cigarette 2019-04-14 2019-04-[address] [facility] - pack-years 00:00:00 00:00:00 [facility] Alcohol Comment 2019-03-20 2019-03-20 4 cans of beer [facility] - 00:[facility]:00 00:00:00 every evening [facility] [address] History [facility] 2019-01-21 2019-01-[address] [facility] - Alcohol Frequency 00:00:00 00:00:00 Medical Center History [facility] 2019-01-21 2019-01-[address] [facility] - Alcohol Std Drinks 00:00:00 00:00:00 Medica l [place] Tobacco Comment 2019-01-21 2019-01-[address] [facility] - 00:00:00 00:00:00 ready to quit Medical [address] smoking Smoking Status Start Date Stop Date Source Current every day smoker 2019-04-14 00:00:00 [facility] Medications Ordered Filled Start Stop Current Ordering Indication Dosage Frequency Signature Comments Components Source Medication Medication Date Date Medication? Clinician (SIG) Name Name gabapentin 2019- No 300mg Q.[id number] Take [address] (NEURONTIN) 4-13 04-13 [id number] mg by [facility] - 300 MG 17:03: 00:00 3D mouth 3 Medical capsule 56 :00 (three) Center times daily. magnesium 2019- No 400mg QD Take [address] oxide - 04-13 mg by [facility] - (MAG-OX) 17:03: 00:00 mouth Medical 400 mg 56 :00 daily. [place] (241.3 mg magnesium) tablet metOLazone 2019- No 5mg Q.5W Take [address] (ZAROXOLYN) - 04-13 by mouth Melvina es - 5 MG tablet 17:03: 00:00 twice a Me dical 55 :00 week On [place] Sunday and Sunday . QUEtiapine 2019- No 12.5mg QD Take 12.[address] (SEROQUEL) 4-13 04-13 mg by [facility] - 25 MG 17:03: 00:00 mouth Medical tablet 55 :00 nightly. [place] dilTIAZem 2019- No 120mg QD Take 120 [...] 400mg QD Take [address] (PACERONE) - 05-29 tablet [facility] - 400 MG 00:00: 23:59 (400 mg Medical tablet 00 :00 total) by Center mouth daily for 90 days. aspirin 81 2019- No 81mg QD Take [address] MG chewable -24 07-29 tablet (81 L ukes - tablet 00:00: 23:59 mg total) Medic al 00 :00 by mouth Center daily for 90 days. pantoprazol 2019- No 40mg QD Take [address] e 2-24 06-06 tablet (40 [facility] - (PROTONIX) 00:00: 00:00 mg total) M edical 40 MG 00 :00 by mouth Center tablet daily for 90 days. dilTIAZem 2019- No 120mg QD Take [address] (CARDIZEM) 2-28 02-28 mg by [facility] - 120 MG 14:21: 00:00 mouth Medical tablet 16 :00 daily. [place] metOLazone 2019- No high blood 5mg Q.5W Take [address] (ZAROXOLYN) 04-25 pressure by mouth [facility]ukes - 5 MG tablet 14:21: 00:00 twice a Me dical 16 :00 week. Center magnesium 2019- No 400mg QD Take [address] oxide 04-25 mg by [facility]ukes - (MAG-OX) 14:21: 00:00 mouth Medical 400 mg 16 :00 daily. Center (241.3 mg magnesium) tablet gabapentin No 300mg [id number] Take [address] (NEURONTIN) 04-25 [id number] mg by [facility] - 300 MG 14:21: [...] for 90 days. midodrine 2019- No 5mg Q.[id number] Take [address] (PROAMATINE 04-25 [id number] tablet (5 [facility] - ) 5 MG 00:00: 23:59 3D mg total) Medic al tablet 00 :00 by mouth 3 Center (three) times daily for 90 days. QUEtiapine 2019- No 25mg QD Take [address] (SEROQUEL) 04-25 tablet (25 Ebonie kes - 25 MG 00:00: 23:59 mg total) Medica l tablet 00 :00 by mouth Center nightly for 30 days. fluconazole 2020-0 2020- No 200mg QD Take 1 CH I [...] total) by Center mouth daily. nicotine 2018-02- No 1{patch QD Place [address] (NICODERM 03-27 } patch onto Melvina es - CQ) 14 00:00: 23:59 the skin Medica l mg/24 hr 00 :00 daily for Center patch 30 days. atorvastati 2018-02- No 80mg QD Take [address] n (LIPITOR) 03-26-13 tablet (80 L ukes - 80 MG [...] Center Heart rate 2019-06-09 20:05:00 90 /min [facility] Body temperature 2019-06-09 20:00:00 36.61 Stephanie [facility] Respiratory rate 2019-06-09 20:00:00 22 /min [facility] Oxygen saturation in 2019-06-09 20:00:00 98 /min [facility] Arterial blood by Medical Ce nter Pulse oximetry Body weight Measured 2019-06-09 06:00:00 71.1 kg [facility] BMI 2019-06-09 06:00:00 23.15 kg/m2 [facility] Body height 2019-06-02 06:00:00 175.3 cm [facility] Procedures Procedure Date / Time Performing Clinician Source Performed RHYTHM STRIP - SCAN 2019-07-02 12:50:08 Provider, [facility] REPORT OF PROCEDURE - 2019-07-02 12:50:05 Provider, [facility] RHYTHM STRIP - SCAN 2019-06-12 14:00:10 Provider, [facility] RHYTHM STRIP - SCAN 2019-06-12 14:00:08 Provider, [facility] POCT-GLUCOSE METER 2019-06-09 18:23:00 France Drake [facility] POCT-GLUCOSE METER 2019-06-09 12:40:00 France Drake [facility] COMPREHENSIVE METABOLIC 2019-06-09 11:30:[address] [facility] POCT-GLUCOSE METER 2019-06-09 05:42:00 France Drake [facility] POCT-GLUCOSE METER 2019-06-08 23:32:00 France Drake [facility] POCT-GLUCOSE METER 2019-06-08 18:13:00 France Drake [facility] POCT-GLUCOSE METER 2019-06-08 05:26:00 France Drake [facility] POCT-GLUCOSE METER 2019-06-07 23:19:00 Vidal France Galvez [facility] POCT-GLUCOSE METER 2019-06-07 18:41:00 Vidal, France Galvez [facility] POCT-GLUCOSE METER 2019-06-07 17:14:00 Vidal, France Galvez [facility] POCT-GLUCOSE METER 2019-06-07 14:17:00 Vidal, France Ann [facility] POCT-GLUCOSE METER 2019-06-07 06:16:00 Vidal, France [facility] POCT-GLUCOSE METER 2019-06-06 23:38:00 Vidal, France [facility] POCT-GLUCOSE METER 2019-06-06 17:48:00 Vidal, France [facility] POCT-GLUCOSE METER 2019-06-06 12:00:00 Vidal France [facility] POCT-GLUCOSE METER 2019-06-06 05:44:00 Vidal France Galvez [facility] COMPREHENSIVE METABOLIC 2019-06-06 03:50:[address] [facility] POCT-GLUCOSE METER 2019-06-05 23:58:00 Vidal France [facility] POCT-GLUCOSE METER 2019-06-05 16:45:00 Vidal France Leonor [facility] POTASSIUM 2019-06-05 16:31:00 Vidal France Leonor [facility] POCT-GLUCOSE METER 2019-06-05 12:17:00 Vidal France Leonor [facility] BASIC METABOLIC PANEL (7) 2019-06-05 06:01:00 France Drake [facility] POCT-GLUCOSE METER 2019-06-05 06:01:00 Vidal France [facility] POCT-GLUCOSE METER 2019-06-05 00:03:00 [facility] 2019-06-04 17:43:[address] [facility] [place] XR ESOPH SWALLOW FUNCTION 2019-06-04 14:45:00 Serafin Palafox [facility] POCT-GLUCOSE METER 2019-06-04 11:44:[address] [facility] [place] POCT-GLUCOSE METER 2019-06-04 06:06:[address] [facility] [place] COMPREHENSIVE METABOLIC 2019-06-04 05:15:[address] [facility] CBC W/PLT COUNT & AUTO 2019-06-04 05:15:00 Alberto, Ole Welleri C [facility] US ABDOMEN LIMITED 2019-06-04 02:10:[address] [facility] [place] POCT-GLUCOSE METER 2019-06-03 23:38:[address] [facility] [place] POCT-GLUCOSE METER 2019-06-03 17:47:[address] [facility] [place] AMMONIA 2019-06-03 14:56:[address] [facility] [place] POCT-GLUCOSE METER 2019-06-03 12:09:[address] [facility] [place] POCT-GLUCOSE METER 2019-06-03 06:21:00 Serafin Palafox [facility] COMPREHENSIVE METABOLIC 2019-06-03 05:25:[address] [facility] MAGNESIUM 2019-06-03 05:25:00 Serafin Palafox [facility] CBC W/PLT COUNT & AUTO 2019-06-03 05:25:00 Alberto, Lawsondaniel Ammy C [facility] POCT-GLUCOSE METER 2019-06-03 00:10:00 Serafin Palafox [facility] POCT-GLUCOSE METER 2019-06-02 17:53:00 Serafin Palafox [facility] BASIC METABOLIC PANEL (7) 2019-06-02 15:03:00 Serafin Palafox [facility] POCT-GLUCOSE METER 2019-06-02 12:29:00 Serafin Palafox [facility] BLOOD GAS, ARTERIAL 2019-06-02 08:15:00 Serafin Palafox [facility] POCT-GLUCOSE METER 2019-06-02 05:38:00 Serafin Palafox [facility] VANCOMYCIN LEVEL, TROUGH 2019-06-02 01:24:00 Val Mohr [facility] COMPREHENSIVE METABOLIC 2019-06-02 01:24:00 [facility] MAGNESIUM 2019-06-02 01:24:00 Floerncio Whitaker [facility] CBC W/PLT COUNT & AUTO 2019-06-02 01:24:00 Alberto, Ole Boyd [facility] POCT-GLUCOSE METER 2019-06-01 23:14:00 Alberto, [facility] ECHOCARDIOGRAM REPORT - SCAN 2019-06-01 21:20:04 ProviderUday lt [facility] POCT-GLUCOSE METER 2019-06-01 17:49:00 Alberto, [facility] 2D ECHO W/ DOPPLER 2019-06-01 14:50:21 Alberto, [facility] (CW/PW/COLOR) [facility] POCT-GLUCOSE METER 2019-06-01 11:54:00 Alberto, [facility] MRSA SCREEN 2019-06-01 10:47:00 Val Mohr [facility] BASIC METABOLIC PANEL (7) 2019-06-01 10:46:00 Alberto, Ole Weller i [facility] MAGNESIUM 2019-06-01 10:46:00 [facility] 2019-06-01 10:46:00 Alberto, [facility] CBC W/PLT COUNT & AUTO 2019-06-01 10:46:00 Alberto, [facility] POCT-GLUCOSE METER 2019-06-01 05:37:00 Alberto, [facility] POCT-GLUCOSE METER 2019-05-31 23:21:00 Alberto, [facility] POCT-GLUCOSE METER 2019-05-31 17:44:00 Alberto, [facility] POCT-GLUCOSE METER 2019-05-31 11:21:00 Alberto, [facility] PROTHROMBIN TIME/INR 2019-05-31 10:31:00 Manolo [facility] HEPATITIS PANEL, ACUTE 2019-05-31 08:24:00 Manolo [facility] VANCOMYCIN LEVEL, RANDOM 2019-05-31 08:23:00 John Mendenhall [facility] COMPREHENSIVE METABOLIC 2019-05-31 08:23:00 Manolo [facility] PANEL [facility] B-TYPE NATRIURETIC FACTOR 2019-05-31 08:23:00 Manolo [facility] (BNP) [facility] CBC W/PLT COUNT & AUTO 2019-05-31 08:23:00 Manolo [facility] BLOOD CULTURE 2019-05-31 08:22:00 Manolo [facility] ECG 12-LEAD 2019-05-31 07:21:40 Manolo [facility] POCT-GLUCOSE METER 2019-05-31 05:54:00 Liza Horne [facility] SODIUM, RANDOM URINE 2019-05-31 03:26:00 Manolo [facility] UREA NITROGEN, RANDOM URINE 2019-05-31 03:26:00 Manolo [facility] CREATININE, RANDOM URINE 2019-05-31 03:26:00 [facility] BLOOD CULTURE 2019-05-31 00:25:00 French [facility] POCT-GLUCOSE METER 2019-05-30 23:51:00 Liza Horne [facility] XR CHEST 1 VIEW 2019-05-30 21:03:00 [facility] COMPREHENSIVE METABOLIC 2019-05-30 20:55:00 [facility] PROTHROMBIN TIME/INR 2019-05-30 20:55:00 [facility] CBC W/PLT COUNT & AUTO 2019-05-30 20:55:00 [facility] S t [facility] DIFFERENTIAL [facility] ECG 12-LEAD 2019-05-30 19:25:56 Unknown, H[facility] Doctor [facility] XR CHEST 2 VIEWS 2019-05-08 12:14:00 Adelaide Lambert [facility] RHYTHM STRIP - SCAN 2019-05-01 17:29:28 Provider, [facility] RHYTHM STRIP - SCAN 2019-04-28 15:01:14 Provider, [facility] RHYTHM STRIP - SCAN 2019-04-28 15:01:12 Provider, [facility] XR CHEST 1 VIEW 2019-04-25 06:45:00 Zhao Moreno [facility] PORTABLE/BEDSIDE [facility] BASIC METABOLIC PANEL (7) 2019-04-25 04:52:00 Gustavo George [facility] MAGNESIUM 2019-04-25 04:52:00 Gustavo George [facility] PHOSPHORUS 2019-04-25 04:52:00 Gustavo George [facility] CBC W/PLT COUNT & AUTO 2019-04-25 04:52:[address] [facility] XR CHEST 1 VIEW 2019-04-24 06:56:00 Josh, [facility] PORTABLE/BEDSIDE Medical [place] BASIC METABOLIC PANEL (7) 2019-04-24 04:11:00 Gustavo George [facility] MAGNESIUM 2019-04-24 04:11:00 Gustavo George [facility] PHOSPHORUS 2019-04-24 04:11:[address] [facility] CBC W/PLT COUNT & AUTO 2019-04-24 04:11:[address] [facility] XR CHEST 1 VIEW 2019-04-23 13:57:00 [facility] PORTABLE/BEDSIDE [facility] XR CHEST 1 VIEW 2019-04-23 06:31:00 Josh [facility] BASIC METABOLIC PANEL (7) 2019-04-23 03:53:00 Gustavo George [facility] MAGNESIUM 2019-04-23 03:53:[address] [facility] PHOSPHORUS 2019-04-23 03:53:00 Gustavo George [facility] PREALBUMIN 2019-04-23 03:53:00 [facility] W/PLT COUNT & AUTO 2019-04-23 03:53:[address] [facility] XR ESOPH SWALLOW FUNCTION 2019-04-22 14:30:00 Yonathan Mccracken [facility] - W/CINE VIDEO [facility] XR CHEST 1 VIEW 2019-04-22 05:49:00 Josh [facility] PORTABLE/[facility] BASIC METABOLIC PANEL (7) 2019-04-22 04:02:00 Gustavo George [facility] MAGNESIUM 2019-04-22 04:02:[address] [facility] PHOSPHORUS 2019-04-22 04:02:[address] [facility] CBC W/PLT COUNT & AUTO 2019-04-22 03:23:[address] [facility] BASIC METABOLIC PANEL (7) 2019-04-21 12:23:00 Enoch Chung [facility] MAGNESIUM 2019-04-21 12:23:00 [facility] XR CHEST 1 VIEW 2019-04-21 03:59:00 [facility] Medical [place] BASIC METABOLIC PANEL (7) 2019-04-21 03:43:00 Gustavo George Christie [facility] MAGNESIUM 2019-04-21 03:43:00 Gustavo George [facility] PHOSPHORUS 2019-04-21 03:43:00 Gustavo George [facility] CBC W/PLT COUNT & AUTO 2019-04-21 03:42:00 Gustavo George [facility] BASIC METABOLIC PANEL (7) 2019-04-20 15:19:00 Zhao Moreno [facility] PHOSPHORUS 2019-04-20 15:19:00 Josh [facility] MAGNESIUM 2019-04-20 15:19:00 [facility] CBC W/PLT COUNT & AUTO 2019-04-20 15:19:00 Zhao Moreno [facility] POCT-GLUCOSE METER 2019-04-20 12:17:00 Fernando Andrews [facility] XR CHEST 1 VIEW 2019-04-20 05:50:00 Zhao Moreno [facility] PORTABLE/BEDSIDE [facility] BASIC METABOLIC PANEL (7) 2019-04-20 03:21:00 Zhao Moreno [facility] PHOSPHORUS 2019-04-20 03:21:00 [facility] 2019-04-20 03:21:00 [facility] CBC W/PLT COUNT & AUTO 2019-04-20 03:21:00 [facility] POCT-GLUCOSE METER 2019-04-20 00:07:00 Fernando Andrews [facility] TRANSFUSION SERVICE REPORT - 2019-04-19 18:02:04 Provider, Uday macias [facility] BASIC METABOLIC PANEL (7) 2019-04-19 17:34:00 Josh Zhao [facility] PHOSPHORUS 2019-04-19 17:34:00 Josh [facility] MAGNESIUM 2019-04-19 17:34:00 [facility] CBC W/PLT COUNT & AUTO 2019-04-19 17:34:[address] [facility] XR CHEST 1 VIEW 2019-04-19 05:48:00 [facility] PORTABLE/BEDSIDE [facility] BASIC METABOLIC PANEL (7) 2019-04-19 03:26:00 Zhao Moreno [facility] PHOSPHORUS 2019-04-19 03:26:00 Josh [facility] MAGNESIUM 2019-04-19 03:26:00 [facility] CBC W/PLT COUNT & AUTO 2019-04-19 03:26:[address] [facility] POCT-GLUCOSE METER 2019-04-19 00:23:00 Fernando Andrews [facility] PREPARE LEUKO-REDUCED RBC 2019-04-18 23:54:00 Yonathan Mccracken [facility] POCT-GLUCOSE METER 2019-04-18 18:27:00 Fernando Andrews [facility] TRANSFUSION SERVICE REPORT - 2019-04-18 18:02:42 Provider, Uday macias [facility] BASIC METABOLIC PANEL (7) 2019-04-18 18:02:00 Zhao Moreno [facility] PHOSPHORUS 2019-04-18 18:02:00 Josh [facility] MAGNESIUM 2019-04-18 18:02:[facility] W/PLT COUNT & AUTO 2019-04-18 18:02:00 [facility] POCT-GLUCOSE METER 2019-04-18 11:46:00 Fernando Andrews [facility] POCT-GLUCOSE METER 2019-04-18 05:54:00 Fernando Andrews [facility] XR CHEST 1 VIEW 2019-04-18 05:36:00 Josh [facility] PORTABLE/BEDSIDE Medical Center BLOOD GAS, ARTERIAL 2019-04-18 02:37:00 Josh [facility] BASIC METABOLIC PANEL (7) 2019-04-18 02:36:00 Josh [facility] PHOSPHORUS 2019-04-18 02:36:00 Josh [facility] MAGNESIUM 2019-04-18 02:36:00 [facility] CBC W/PLT COUNT & AUTO 2019-04-18 02:36:[address] [facility] POCT-GLUCOSE METER 2019-04-18 00:19:00 Fernando Andrews [facility] POCT-GLUCOSE METER 2019-04-17 18:30:00 Fernando Andrews [facility] TRANSFUSION SERVICE REPORT - 2019-04-17 17:52:[address] [facility] BLOOD GAS, ARTERIAL 2019-04-17 16:17:00 Josh [facility] BASIC METABOLIC PANEL (7) 2019-04-17 16:16:00 Josh Zhao [facility] PHOSPHORUS 2019-04-17 16:16:00 Josh [facility] MAGNESIUM 2019-04-17 16:16:00 [facility] CBC W/PLT COUNT & AUTO 2019-04-17 16:16:[address] [facility] POCT-GLUCOSE METER 2019-04-17 13:14:00 Fernando Andrews [facility] TRANSFUSE LEUKO-REDUCED RED 2019-04-17 11:41:31 Yonathan Mccracken [facility] BLOOD CELLS [facility] XR CHEST 1 VIEW 2019-04-17 06:07:00 [facility] POCT-GLUCOSE METER 2019-04-17 05:32:00 Fernando Andrews [facility] BLOOD GAS, ARTERIAL 2019-04-17 03:30:00 [facility] BASIC METABOLIC PANEL (7) 2019-04-17 03:30:00 Josh [facility] PHOSPHORUS 2019-04-17 03:30:00 [facility] PROTHROMBIN TIME/INR 2019-04-17 03:30:00 [facility] APTT 2019-04-17 03:30:00 Josh [facility] MAGNESIUM 2019-04-17 03:30:00 Enoch Chung [facility] CBC W/PLT COUNT & AUTO 2019-04-17 03:30:00 [facility] HEMOGLOBIN AND HEMATOCRIT 2019-04-17 00:27:00 Celestina Estrada [facility] POCT-GLUCOSE METER 2019-04-17 00:10:00 Fernando Andrews [facility] PREPARE CRYOPRECIPITATE 2019-04-16 23:54:00 Sean Celestina [facility] PREPARE PLASMA 2019-04-16 23:54:00 Sean Henry [facility] PREPARE LEUKO-REDUCED RBC 2019-04-16 23:54:00 Enoch Chung [facility] PERIPHERAL VASCULAR REPORT - 2019-04-16 21:23:[address] [facility] POCT-GLUCOSE METER 2019-04-16 18:48:00 Fernando Andrews [facility] TRANSFUSION SERVICE REPORT - 2019-04-16 17:52:[address] [facility] BLOOD GAS, ARTERIAL 2019-04-16 16:02:00 [facility] PHOSPHORUS 2019-04-16 16:02:00 [facility] BASIC METABOLIC PANEL (7) 2019-04-16 16:02:00 Enoch Chung [facility] CBC W/PLT COUNT & AUTO 2019-04-16 16:02:00 [facility] POCT-GLUCOSE METER 2019-04-16 13:24:00 Fernando Andrews [facility] HEMOGLOBIN AND HEMATOCRIT 2019-04-16 09:09:00 [facility] 2019-04-16 03:46:00 [facility] PORTABLE/BEDSIDE Medical Center MAGNESIUM 2019-04-16 03:28:00 Antonio Grace [facility] BASIC METABOLIC PANEL (7) 2019-04-16 03:28:00 [facility] PHOSPHORUS 2019-04-16 03:28:00 [facility] PROTHROMBIN TIME/INR 2019-04-16 03:28:00 [facility] APTT 2019-04-16 03:28:00 [facility] CALCIUM, IONIZED 2019-04-16 03:28:00 Sean [facility] CBC W/PLT COUNT & AUTO 2019-04-16 03:28:00 [facility] BLOOD GAS, ARTERIAL 2019-04-16 03:24:00 [facility] TRANSFUSE LEUKO-REDUCED RED 2019-04-16 01:54:16 Sean [facility] BLOOD CELLS [facility] POCT-GLUCOSE METER 2019-04-15 23:14:00 Fernando Andrews [facility] CBC W/PLT COUNT & AUTO 2019-04-15 22:51:00 Celestina Estrada [facility] TRANSFUSE LEUKO-REDUCED RED 2019-04-15 21:45:24 Yonathan Mccracken [facility] TRANSFUSION SERVICE REPORT - 2019-04-15 18:08:22 Provider, Uday macias [facility] US GUIDE, VASCULAR ACCESS 2019-04-15 17:48:17 Enoch Chung [facility] BLOOD GAS, ARTERIAL 2019-04-15 16:04:00 [facility] BASIC METABOLIC PANEL (7) 2019-04-15 16:03:00 Zhao Moreno [facility] PHOSPHORUS 2019-04-15 16:03:00 Zhao Moreno [facility] CBC W/PLT COUNT & AUTO 2019-04-15 16:03:00 Zhao Moreno [facility] TRANSFUSE LEUKO-REDUCED RED 2019-04-15 14:21:08 Enoch Chung [facility] XR CHEST 1 VIEW 2019-04-15 14:01:00 Enoch Chung [facility] VENOUS DOPPLER ARM, LEFT 2019-04-15 11:30:00 Yonathan Mccracken [facility] THROMBOELASTOGRAPH (TEG) 2019-04-15 11:28:00 Enoch Chung [facility] POCT-GLUCOSE METER 2019-04-15 11:22:00 Fernando Andrews [facility] TRANSFUSE PLASMA 2019-04-15 11:03:06 Celestina Estrada [facility] ECG 12-LEAD 2019-04-15 10:36:36 Unknown, Hl7 [facility] ECG 12-LEAD 2019-04-15 10:35:51 Lucio Guillory [facility] TRANSFUSE CRYOPRECIPITATE 2019-04-15 09:22:40 Sean Celestina [facility] CBC W/PLT COUNT & AUTO 2019-04-15 08:52:[address] [facility] TRANSFUSE LEUKO-REDUCED RED 2019-04-15 07:56:15 [facility]SF[facility] LEUKO-REDUCED RED 2019-04-15 06:24:[address] [facility] XR CHEST 1 VIEW 2019-04-15 04:38:00 [facility] PORTABLE/BEDSIDE Medical Center BLOOD GAS, ARTERIAL 2019-04-15 04:07:00 Josh [facility] MAGNESIUM 2019-04-15 04:05:00 Antonio Grace [facility] BASIC METABOLIC PANEL (7) 2019-04-15 04:05:00 AparnaamYahaira [facility] PHOSPHORUS 2019-04-15 04:05:00 [facility] LACTIC ACID, ARTERIAL 2019-04-15 04:05:00 Sean Henry [facility] CALCIUM, IONIZED 2019-04-15 04:05:00 Sean [facility] CBC W/PLT COUNT & AUTO 2019-04-15 04:05:00 Sean [facility] TRANSFUSE LEUKO-REDUCED RED 2019-04-15 03:39:[address] [facility] TRANSFUSE LEUKO-REDUCED RED 2019-04-15 02:17:[address] [facility] PROTHROMBIN TIME/INR 2019-04-15 01:58:00 Josh [facility] PT/APTT 2019-04-15 01:58:00 Sean Henry [facility] FIBRINOGEN 2019-04-15 01:58:00 [facility] POCT-GLUCOSE METER 2019-04-15 00:23:00 Bharti Kamara [facility] CORTISOL 2019-04-15 00:07:00 Jude Stewart [facility] CBC W/PLT COUNT & AUTO 2019-04-15 00:07:00 TerryJude [facility] DIFFERENTIAL [facility] XR CHEST 1 VIEW 2019-04-14 20:32:00 [facility] PORTABLE/BEDSIDE Medical Center BLOOD GAS, ARTERIAL 2019-04-14 20:00:00 Elma Estradanya [facility] MAGNESIUM 2019-04-14 19:57:00 Josh [facility] PHOSPHORUS 2019-04-14 19:57:00 [facility] CALCIUM, IONIZED 2019-04-14 19:57:00 [facility] FUNGUS CULTURE + SMEAR 2019-04-14 18:48:03 DarrylFernando [facility] AFB CULTURE + SMEAR 2019-04-14 18:48:03 DarrylFernando [facility] (NON-SPUTUM) [facility] BRONCHIAL CULTURE + GRAM 2019-04-14 18:48:00 Fernando Andrews [facility] SPIN/CONCENTRATION CHARGE 2019-04-14 18:48:00 Fernando Andrews [facility] CALCIUM, IONIZED 2019-04-14 17:49:02 Elham Holguin [facility] BLOOD GAS, ARTERIAL 2019-04-14 17:49:02 Elham Holguin [facility] SODIUM NA-STAT LAB 2019-04-14 17:49:02 Elham Holguin [facility] POTASSIUM-STAT LAB 2019-04-14 17:49:02 Elham Holguin [facility] GLUCOSE-STAT LAB 2019-04-14 17:49:02 Elham Holguin [facility] HGB/HCT (H&H) - STAT LAB 2019-04-14 17:49:02 Elham Holguin [facility] AFB CULTURE + SMEAR 2019-04-14 17:15:20 Darryl, Fernando [facility] (NON-SPUTUM) [facility] ANAEROBIC CULTURE 2019-04-14 17:15:20 [facility] FUNGUS CULTURE + SMEAR 2019-04-14 17:15:20 [facility] SURGICALLY OBTAINED CULTURE 2019-04-14 17:15:20 [facility] + GRAM STAIN [facility] AFB CULTURE + SMEAR 2019-04-14 17:10:41 [facility] (NON-SPUTUM) [facility] ANAEROBIC CULTURE 2019-04-14 17:10:41 [facility] Fernando [facility] FUNGUS CULTURE + SMEAR 2019-04-14 17:10:41 [facility] SURGICALLY OBTAINED CULTURE 2019-04-14 17:10:41 [facility] + GRAM STAIN [facility] AFB CULTURE + SMEAR 2019-04-14 17:08:01 [facility]rylFernando [facility] ([facility] ANAEROBIC CULTURE 2019-04-14 17:08:01 [facility]ED CULTURE 2019-04-14 17:08:01 Fernando Andrews [facility] + GRAM STAIN [facility] FUNGUS CULTURE + SMEAR 2019-04-14 17:08:01 [facility] AFB CULTURE + SMEAR 2019-04-14 17:00:33 [facility] ([facility] ANAEROBIC CULTURE 2019-04-14 17:00:33 DarrylAlanwn [facility] FUNGUS CULTURE + SMEAR 2019-04-14 17:00:33 [facility] SURGICALLY OBTAINED CULTURE 2019-04-14 17:00:33 DarrylFernando [facility] - + GRAM STAIN [facility] TISSUE EXAM 2019-04-14 16:54:00 Fernando Andrews [facility] CALCIUM, IONIZED 2019-04-14 16:30:09 Elham Holguin [facility] BLOOD GAS, ARTERIAL 2019-04-14 16:30:09 Elham Holguin [facility] SODIUM NA-STAT LAB 2019-04-14 16:30:09 Elham Holguin [facility] POTASSIUM-STAT LAB 2019-04-14 16:30:09 Elham Holguin [facility] GLUCOSE-STAT LAB 2019-04-14 16:30:09 Elham Holguin [facility] HGB/HCT (H&H) - STAT LAB 2019-04-14 16:30:09 Elham Holguin [facility] CYTOLOGY 2019-04-14 15:48:00 Fernando Andrews [facility] SURGICALLY OBTAINED CULTURE 2019-04-14 15:41:33 Fernando Andrews [facility] - + GRAM STAIN [facility] AFB CULTURE + SMEAR 2019-04-14 15:41:33 [facility] [place] FUNGUS CULTURE + SMEAR 2019-04-14 15:41:33 [facility] ANAEROBIC CULTURE 2019-04-14 15:41:33 [facility], IONIZED 2019-04-14 15:24:34 Elham Holguin [facility] BLOOD GAS, ARTERIAL 2019-04-14 15:24:34 Elham Holguin [facility] SODIUM NA-STAT LAB 2019-04-14 15:24:34 Elham Holguin [facility] POTASSIUM-STAT LAB 2019-04-14 15:24:34 Elham Holguin [facility] GLUCOSE-STAT LAB 2019-04-14 15:24:34 Elham Holguin [facility] HGB/HCT (H&H) - STAT LAB 2019-04-14 15:24:34 Elham Holguin [facility] THORACOSCOPY 2019-04-14 13:25:00 Fernando Andrews [facility] (VATS),DECORTICATION Medical [address] BRONCHOSCOPY 2019-04-14 13:25:00 Fernando Andrews [facility] ECG 12-LEAD 2019-04-14 12:19:58 Unknown, Hl7 [facility] XR CHEST 1 VIEW 2019-04-14 10:05:00 Yonathan Mccracken [facility] PORTABLE/BEDSIDE [facility] MAGNESIUM 2019-04-14 01:01:00 Antonio Grace [facility] PHOSPHORUS 2019-04-14 01:01:00 Antonio Grace [facility] BASIC METABOLIC PANEL (7) 2019-04-14 01:01:00 [facility] PROTHROMBIN TIME/INR 2019-04-14 01:01:00 [facility] COMPREHENSIVE METABOLIC 2019-04-14 01:01:[address] [facility] TYPE AND SCREEN, AUTOMATED 2019-04-14 01:01:00 Aparna [facility] CBC W/PLT COUNT & AUTO 2019-04-14 01:01:00 Antonio Grace [facility] POCT-GLUCOSE METER 2019-04-13 19:57:00 Nal [facility] POCT-GLUCOSE METER 2019-04-13 17:17:00 Nalam, [facility] POCT-GLUCOSE METER 2019-04-13 11:52:00 [facility], [facility] XR CHEST 1 VIEW 2019-04-13 08:26:00 Jude Stewart [facility] PORTABLE/BEDSIDE [facility] POCT-GLUCOSE METER 2019-04-13 05:58[facility] & AUTO 2019-04-13 04:50:00 Antonio Grace [facility] MAGNESIUM 2019-04-13 04:39:00 Antonio Grace [facility] PHOSPHORUS 2019-04-13 04:39:00 Antonio Grace [facility] BASIC METABOLIC PANEL (7) 2019-04-13 04:39:00 Nal, [facility] HEPATIC FUNCTION PANEL 2019-04-13 04:39:00 Nalam, [facility] APTT 2019-04-13 04:29:00 Britton Renee [facility] POCT-GLUCOSE METER 2019-04-12 17:20:00 Nalam, [facility] POCT-GLUCOSE METER 2019-04-12 12:05:00 [facility], [facility] XR CHEST 1 VIEW 2019-04-12 06:43:00 Yonathan Mccracken [facility] - PORTABLE/BEDSIDE [facility] POCT-GLUCOSE METER 2019-04-12 05:21:00 Nalam, [facility] MAGNESIUM 2019-04-12 05:17:00 Antonio Grace [facility] PHOSPHORUS 2019-04-12 05:17:00 Sanjay Antonio Vladislav [facility] BASIC METABOLIC PANEL (7) 2019-04-12 05:17:00 [facility], [facility] CBC W/PLT COUNT & AUTO 2019-04-12 05:17:00 Antonio Grace [facility] POCT-GLUCOSE METER 2019-04-12 00:04:00 Nalam, [facility] POCT-GLUCOSE METER 2019-04-11 17:35:00 [facility], [facility] XR CHEST 1 VIEW 2019-04-11 13:04:00 [facility] POCT-GLUCOSE METER 2019-04-11 12:09:00 Nalam, [facility] POCT-GLUCOSE METER 2019-04-11 10:39:00 Yahaira Breaux [facility] REPORT OF PROCEDURE - 2019-04-11 10:15:36 [facility] UPPER ENDOS[facility],PEG 2019-04-11 09:00:00 Gabriel Peña [facility] POCT-GLUCOSE METER 2019-04-11 07:01:00 [facility] 2019-04-11 05:28:00 Antonio Grace [facility] PHOSPHORUS 2019-04-11 05:28:00 Antonio Grace [facility] BASIC METABOLIC PANEL (7) 2019-04-11 05:28:00 [facility] PROTHROMBIN TIME/INR 2019-04-11 05:28:00 Reena Mayorga [facility] CBC W/PLT COUNT & AUTO 2019-04-11 05:28:[address] [facility] POCT-GLUCOSE METER 2019-04-11 00:16:00 [facility] POCT-GLUCOSE METER 2019-04-10 14:51:00 [facility] CHEST 1 VIEW 2019-04-10 09:16:00 Yonathan Mccracken [facility] - PORTABLE/BEDSIDE [facility] MAGNESIUM 2019-04-10 04:41:00 Antonio Grace [facility] PHOSPHORUS 2019-04-10 04:41:00 Antonio Grace [facility] BASIC METABOLIC PANEL (7) 2019-04-10 04:41:00 Namita [facility] CBC W/PLT COUNT & AUTO 2019-04-10 04:41:[address] [facility] POCT-GLUCOSE METER 2019-04-10 00:37:00 Nalam, [facility] POCT-GLUCOSE METER 2019-04-09 17:19:00 Aparna [facility] XR ESOPH SWALLOW FUNCTION 2019-04-09 13:56:00 [facility] BODY FLUID CULTURE + GRAM 2019-04-09 12:10:00 Yonathan Mccracken [facility] POCT-GLUCOSE METER 2019-04-09 11:47:00 Nalam, [facility] POCT-GLUCOSE METER 2019-04-09 09:21:00 Nalam, [facility] XR CHEST 1 VIEW 2019-04-09 06:51:00 Yonathan Mccracken [facility] POCT-GLUCOSE METER 2019-04-09 06:16:00 Aparnavíctor, [facility] MAGNESIUM 2019-04-09 05:32:00 Sanjay [facility] PHOSPHORUS 2019-04-09 05:32:00 Sanjay [facility] BASIC METABOLIC PANEL (7) 2019-04-09 05:32:00 [facility] CBC W/PLT COUNT & AUTO 2019-04-09 05:32:[address] [facility] POCT-GLUCOSE METER 2019-04-09 01:56:00 [facility] POCT-GLUCOSE METER 2019-04-08 17:45:00 [facility] POCT-GLUCOSE METER 2019-04-08 12:36:00 [facility], [facility] XR CHEST 1 VIEW 2019-04-08 06:25:00 Yonathan Mccracken [facility] PORTABLE/[facility] POCT-GLUCOSE METER 2019-04-08 05:17:00 Nalam, [facility] MAGNESIUM 2019-04-08 04:12:00 Sanjay [facility] PHOSPHORUS 2019-04-08 04:12:00 Antonio Grace [facility] BASIC METABOLIC PANEL (7) 2019-04-08 04:12:00 [facility] W/PLT COUNT & AUTO 2019-04-08 04:12:00 Antonio Grace [facility] POCT-GLUCOSE METER 2019-04-08 00:22:00 Nalam [facility] BASIC METABOLIC PANEL (7) 2019-04-07 18:08:00 Sean Bates [facility] POCT-GLUCOSE METER 2019-04-07 17:36:00 Nalam, [facility] POCT-GLUCOSE METER 2019-04-07 11:35:00 Nalam, [facility] XR CHEST 1 VIEW 2019-04-07 11:21:00 Britton Dixon [facility] - PORTABLE/BEDSIDE [facility] XR CHEST 1 VIEW 2019-04-07 09:52:00 Yonathan Mccracken [facility] - PORTABLE/BEDSIDE [facility] POCT-GLUCOSE METER 2019-04-07 06:38:00 Namita, [facility] MAGNESIUM 2019-04-07 06:07:00 Antonio Grace [facility] PHOSPHORUS 2019-04-07 06:07:00 Antonio Grace [facility] BASIC METABOLIC PANEL (7) 2019-04-07 06:07:00 Sean Bates [facility] CBC W/PLT COUNT & AUTO 2019-04-07 06:07:00 CarleeAntonio yañez [facility] POCT-GLUCOSE METER 2019-04-06 23:48:00 Hal, Areli [facility] POCT-GLUCOSE METER 2019-04-06 17:17:00 Hal, Raeli [facility] BASIC METABOLIC PANEL (7) 2019-04-06 16:40:00 Sean Bates [facility] POCT-GLUCOSE METER 2019-04-06 12:37:00 Hal, [facility] XR CHEST 1 VIEW 2019-04-06 06:49:00 Nawaf [facility] PORTABLE/BEDSIDE [facility] MAGNESIUM 2019-04-06 06:33:00 CombithsAntonio [facility] PHOSPHORUS 2019-04-06 06:33:00 Combiths [facility] BASIC METABOLIC PANEL (7) 2019-04-06 06:33:00 Jana [facility] CBC W/PLT COUNT & AUTO 2019-04-06 06:33:[address] [facility] POCT-GLUCOSE METER 2019-04-06 05:15:00 Hal, [facility] BASIC METABOLIC PANEL (7) 2019-04-05 16:43:00 Jana [facility] POCT-GLUCOSE METER 2019-04-05 11:21:00 Hal, [facility] MAGNESIUM 2019-04-05 04:50:00 Combiths Hazel [facility] PHOSPHORUS 2019-04-05 04:50:00 Combiths [facility] BASIC METABOLIC PANEL (7) 2019-04-05 04:50:00 Jana [facility] CBC W/PLT COUNT & AUTO 2019-04-05 04:50:[address] [facility] XR CHEST 1 VIEW 2019-04-05 01:58:00 Nawaf [facility] PORTABLE/BEDSIDE [facility] POCT-GLUCOSE METER 2019-04-04 23:42:00 Hal, [facility] POCT-GLUCOSE METER 2019-04-04 17:43:00 Hal, [facility] BASIC METABOLIC PANEL (7) 2019-04-04 16:28:00 Jana [facility] XR ABDOMEN / KUB 1 VIEW 2019-04-04 15:58:00 Buddy Ford [facility] XR ABDOMEN / KUB 1 VIEW 2019-04-04 15:39:00 Britton Aj [facility] POCT-GLUCOSE METER 2019-04-04 12:09:00 Hal, [facility] XR CHEST 1 VIEW 2019-04-04 08:30:00 Yonathan Mccracken [facility] PORTABLE/BEDSIDE [facility] POCT-GLUCOSE METER 2019-04-04 05:29:00 Hal, [facility] MAGNESIUM 2019-04-04 04:42:00 Antonio Grace [facility] PHOSPHORUS 2019-04-04 04:42:00 Antonio Garce [facility] BASIC METABOLIC PANEL (7) 2019-04-04 04:42:00 Sean Bates [facility] CBC W/PLT COUNT & AUTO 2019-04-04 04:42:00 Antonio Grace [facility] POCT-GLUCOSE METER 2019-04-03 23:54:00 Hal, [facility] POCT-GLUCOSE METER 2019-04-03 17:02:00 Hal, [facility] BASIC METABOLIC PANEL (7) 2019-04-03 15:27:00 Sean Bates [facility] MAGNESIUM 2019-04-03 15:27:00 Carlos Alberto Caraballo [facility] POCT-GLUCOSE METER 2019-04-03 12:07:00 Jean Marie [facility] POCT-GLUCOSE METER 2019-04-03 05:53:00 Jean Marie [facility] XR CHEST 1 VIEW 2019-04-03 05:14:00 David Sellers [facility] PORTABLE/BEDSIDE [facility] MAGNESIUM 2019-04-03 02:13:00 Antonio Grace [facility] PHOSPHORUS 2019-04-03 02:13:00 Antonio Grace [facility] BASIC METABOLIC PANEL (7) 2019-04-03 02:13:00 Sean Bates [facility] CBC W/PLT COUNT & AUTO 2019-04-03 02:13:00 Antonio Grace [facility] POCT-GLUCOSE METER 2019-04-02 23:54:00 Jean Marie [facility] APTT 2019-04-02 22:44:00 Thelma [facility] POCT-GLUCOSE METER 2019-04-02 17:26:00 Jean Marie [facility] BASIC METABOLIC PANEL (7) 2019-04-02 16:42:00 Sean Bates [facility] APTT 2019-04-02 16:42:00 [facility] POCT-GLUCOSE METER 2019-04-02 12:20:00 Jean Marie [facility] APTT 2019-04-02 08:12:00 [facility] XR CHEST 1 VIEW 2019-04-02 06:02:00 Carlos Alberto Caraballo [facility] - PORTABLE/BEDSIDE [facility] POCT-GLUCOSE METER 2019-04-02 05:34:00 Jean Marie [facility] APTT 2019-04-02 01:20:00 [facility] BLOOD GAS, ARTERIAL 2019-04-02 01:19:00 Lucio Guillory [facility] MAGNESIUM 2019-04-02 01:18:00 Antonio Grace Vladislav [facility] PHOSPHORUS 2019-04-02 01:18:00 Antonio Grace Vladislav [facility] BASIC METABOLIC PANEL (7) 2019-04-02 01:18:00 Sean Bates [facility] CBC W/PLT COUNT & AUTO 2019-04-02 01:18:00 Antonio Grace [facility] POCT-GLUCOSE METER 2019-04-01 23:48:00 Jean Marie [facility] BASIC METABOLIC PANEL (7) 2019-04-01 19:06:00 Sean Bates [facility] APTT 2019-04-01 18:47:00 Britton Renee [facility] POCT-GLUCOSE METER 2019-04-01 17:51:00 [facility] POCT-GLUCOSE METER 2019-04-01 11:41:[address] [facility] APTT 2019-04-01 11:07:00 NemBritton albarran [facility] POCT-GLUCOSE METER 2019-04-01 06:26:00 Jean Marie [facility] XR CHEST 1 VIEW 2019-04-01 05:07:00 Buddy Ford [facility] PORTABLE/BEDSIDE [facility] BLOOD GAS, ARTERIAL 2019-04-01 03:25:00 Lucio Guillory [facility] MAGNESIUM 2019-04-01 03:23:00 Antonio Grace [facility] PHOSPHORUS 2019-04-01 03:23:00 Antonio Grace [facility] BASIC METABOLIC PANEL (7) 2019-04-01 03:23:00 Sean Bates [facility] APTT 2019-04-01 03:23:00 [facility]deion [facility] Mac[facility] CBC W/PLT COUNT & AUTO 2019-04-01 03:23:00 Antonio Grace [facility] POCT-GLUCOSE METER 2019-03-31 23:51:00 Jean Marie [facility] APTT 2019-03-31 22:13:00 Nemeh [facility] Mackey [facility] APTT 2019-03-31 19:52:00 Thelma [facility] POCT-GLUCOSE METER 2019-03-31 18:08:00 Jean Marie [facility] TROPONIN I 2019-03-31 13:59:00 Carrol Burroughs [facility] COMPREHENSIVE METABOLIC 2019-03-31 13:59:[address] [facility] PT/APTT 2019-03-31 13:59:00 Carrol Burrougsh [facility] MAGNESIUM 2019-03-31 13:59:00 Carrol Burroughs [facility] PHOSPHORUS 2019-03-31 13:59:00 Carrol Burroughs [facility] LACTIC ACID, VENOUS 2019-03-31 13:59:00 Lucio Guillory [facility] BASIC METABOLIC PANEL (7) 2019-03-31 13:59:00 Sean Bates [facility] APTT 2019-03-31 13:59:00 Britton Renee [facility] [facility] POCT-GLUCOSE METER 2019-03-31 11:50:00 Laya Tabares [facility] XR ABDOMEN / KUB 1 VIEW 2019-03-31 11:33:00 Britton Renee [facility] TROPONIN I 2019-03-31 09:12:00 Lucio Guillory [facility] BLOOD GAS, ARTERIAL 2019-03-31 06:42:00 Lucio Guillory [facility] APTT 2019-03-31 06:42:00 Britton Renee [facility] POCT-GLUCOSE METER 2019-03-31 05:40:00 Laya Tabares [facility] XR CHEST 1 VIEW 2019-03-31 05:29:00 Buddy Ford [facility] PORTABLE/BEDSIDE [facility] APTT 2019-03-31 04:20:00 Britton Renee [facility] BLOOD GAS, ARTERIAL 2019-03-31 03:52:00 Lucio Guillory [facility] LACTIC ACID, VENOUS 2019-03-31 03:51:00 Carrol Burroughs [facility] MAGNESIUM 2019-03-31 03:51:00 Antonio Grace [facility] PHOSPHORUS 2019-03-31 03:51:00 LisaAntonio ortiz [facility] BASIC METABOLIC PANEL (7) 2019-03-31 03:51:00 Sean Bates [facility] CBC W/PLT COUNT & AUTO 2019-03-31 03:51:00 SanjayAntonio [facility] B-TYPE NATRIURETIC FACTOR 2019-03-31 01:30:00 Carrol Burroughs [facility] (BNP) [facility] LACTIC ACID, VENOUS 2019-03-31 01:30:00 Pastora [facility] TROPONIN I 2019-03-31 01:30:00 Pastora [facility] POCT-GLUCOSE METER 2019-03-31 00:17:00 [facility] TEST DESIGN 2019-03-30 23:54:00 Pastora [facility] CT BRAIN WITHOUT IV CONTRAST 2019-03-30 23:54:00 Lucio Guillory [facility] POCT-BLOOD GASES, ARTERIAL 2019-03-30 20:53:00 Laya [facility] POCT-SODIUM 2019-03-30 20:53:00 [facility]OT[facility]SI[facility] 2019-03-30 20:53:00 [facility] POCT-GLUCOSE 2019-03-30 20:53:00 [facility] POCT-CALCIUM IONIZED 2019-03-30 20:53:00 [facility] PO[facility]-HEMATOCRIT 2019-03-30 20:53:00 [facility] POCT-HEMOGLOBIN 2019-03-30 20:53:00 [facility] COMPREHENSIVE METABOLIC 2019-03-30 20:44:[address] [facility] TROPONIN I 2019-03-30 20:44:00 Miguel Burroughsirma Stephens [facility] MAGNESIUM 2019-03-30 20:44:00 Miguel Burroughsirma Stephens [facility] PHOSPHORUS 2019-03-30 20:44:00 Miguel Burroughsia Kat [facility] LACTIC ACID, VENOUS 2019-03-30 20:44:00 Britton Zamudio [facility] CBC W/PLT COUNT & AUTO 2019-03-30 20:44:00 Carrol Burroughs [facility] XR CHEST 1 VIEW 2019-03-30 20:34:00 Miguel Burroughsia Kat [facility] PORTABLE/BEDSIDE [facility] APTT 2019-03-30 17:57:00 Britton Renee [facility] POCT-GLUCOSE METER 2019-03-30 17:54:00 [facility] BASIC METABOLIC PANEL (7) 2019-03-30 15:46:00 Sean Bates [facility] APTT 2019-03-30 12:08:00 Britton Renee [facility] POCT-GLUCOSE METER 2019-03-30 11:49:00 Laya [facility] XR CHEST 1 VIEW 2019-03-30 07:47:00 Buddy Ford [facility]/BEDSIDE [facility] APTT 2019-03-30 06:32:00 Britton Renee [facility] POCT-GLUCOSE METER 2019-03-30 05:55:00 [facility]UM 2019-03-30 04:31:00 Antonio Grace [facility] PHOSPHORUS 2019-03-30 04:31:00 Antonio Grace [facility] BASIC METABOLIC PANEL (7) 2019-03-30 04:31:00 Sean Bates eph [facility] APTT 2019-03-30 04:31:00 Britton Renee [facility] CBC W/PLT COUNT & AUTO 2019-03-30 04:31:00 Antonio Grace [facility] POCT-GLUCOSE METER 2019-03-30 00:16:00 [facility] POCT-GLUCOSE METER 2019-03-29 18:14:00 [facility] BASIC METABOLIC PANEL (7) 2019-03-29 12:20:[address] [facility] POCT-GLUCOSE METER 2019-03-29 12:18:00 [facility] POCT-GLUCOSE METER 2019-03-29 06:00:00 [facility] 1 VIEW 2019-03-29 04:42:00 Sean Bates [facility] PORTABLE/BEDSIDE [facility] APTT 2019-03-29 03:33:00 Britton Renee [facility] MAGNESIUM 2019-03-29 03:30:00 Antonio Grace [facility] PHOSPHORUS 2019-03-29 03:30:00 Antonio Grace [facility] BASIC METABOLIC PANEL (7) 2019-03-29 03:30:00 Sean Bates [facility] CBC W/PLT COUNT & AUTO 2019-03-29 03:30:00 Antonio Grace [facility] POCT-GLUCOSE METER 2019-03-29 00:23:00 Laya [facility] VANCOMYCIN LEVEL, TROUGH 2019-03-28 20:25:00 Alexandrea Hoffman [facility] APTT 2019-03-28 20:25:00 Britton Renee [facility] POCT-GLUCOSE METER 2019-03-28 17:33:00 Laya [facility] BASIC METABOLIC PANEL (7) 2019-03-28 16:03:00 Sean Bates [facility] APTT 2019-03-28 14:03:00 Britton Renee [facility] POCT-GLUCOSE METER 2019-03-28 12:26:00 Laya Tabares [facility] CYTOLOGY 2019-03-28 08:03:00 Britton Renee [facility] APTT 2019-03-28 06:30:00 Britton Renee [facility] MAGNESIUM 2019-03-28 04:21:00 Antonio Grace [facility] PHOSPHORUS 2019-03-28 04:21:00 Antonio Grace [facility] BASIC METABOLIC PANEL (7) 2019-03-28 04:21:00 Sean Bates [facility] APTT 2019-03-28 04:21:00 Britton Renee [facility] CBC W/PLT COUNT & AUTO 2019-03-28 04:21:00 Antonio Grace [facility] XR CHEST 1 VIEW 2019-03-28 03:24:00 Sean Bates [facility]/BEDSIDE [facility] POCT-GLUCOSE METER 2019-03-28 00:13:00 Laya Tabares [facility] POCT-GLUCOSE METER 2019-03-27 17:40:00 Laya Tabares [facility] BASIC METABOLIC PANEL (7) 2019-03-27 16:05:00 Sean Bates [facility] APTT 2019-03-27 12:05:00 Britton Renee [facility] POCT-GLUCOSE METER 2019-03-27 11:31:00 Laya Tabares [facility] APTT 2019-03-27 05:34:00 Britton Renee [facility] POCT-GLUCOSE METER 2019-03-27 05:05:00 Laya Tabares [facility] MAGNESIUM 2019-03-27 04:32:00 Antonio Grace [facility] PHOSPHORUS 2019-03-27 04:32:00 Antonio Grace [facility] BASIC METABOLIC PANEL (7) 2019-03-27 04:32:00 Sean Bates [facility] CBC W/PLT COUNT & AUTO 2019-03-27 04:32:00 Antonio Grace [facility] XR CHEST 1 VIEW 2019-03-27 03:54:00 Sean Bates [facility]/BEDSIDE [facility] ECHOCARDIOGRAM REPORT - SCAN 2019-03-26 21:11:42 Uday Wilkes lt [facility] APTT 2019-03-26 20:13:00 Britton Renee [facility] IR DRAINAGE CATHETER CHANGE 2019-03-26 19:30:00 Yonathan Mccracken [facility] POCT-GLUCOSE METER 2019-03-26 18:20:00 Laya Tabares [facility] BASIC METABOLIC PANEL (7) 2019-03-26 17:33:00 Britton Renee [facility] APTT 2019-03-26 12:53:00 Britton Renee [facility] POCT-GLUCOSE METER 2019-03-26 11:54:00 Laya Tabares [facility] APTT 2019-03-26 10:27:00 Britton Renee [facility] POCT-GLUCOSE METER 2019-03-26 06:42:00 Laya Tabares [facility] XR CHEST 1 VIEW 2019-03-26 03:58:00 Artur Ariza [facility] BLOOD GAS, ARTERIAL 2019-03-26 03:08:00 Antonio Grace [facility] MAGNESIUM 2019-03-26 03:00:00 Antonio Grace [facility] PHOSPHORUS 2019-03-26 03:00:00 Antonio Grace [facility] BASIC METABOLIC PANEL (7) 2019-03-26 03:00:00 Tomer Lora [facility] APTT 2019-03-26 03:00:00 Britton Renee [facility] CBC W/PLT COUNT & AUTO 2019-03-26 03:00:00 Antonio Grace [facility] POCT-GLUCOSE METER 2019-03-26 00:02:00 Laya Tabares [facility] BASIC METABOLIC PANEL (7) 2019-03-25 20:05:00 Tomer Lora [facility] 2D ECHO W/ DOPPLER 2019-03-25 19:04:43 GucciBritton [facility] (CW/PW/COLOR) [facility] POCT-GLUCOSE METER 2019-03-25 18:10:00 Laya Tabares [facility] CT CHEST WITHOUT IV CONTRAST 2019-03-25 18:00:00 [facility] CT ABDOMEN/PELVIS WITHOUT IV 2019-03-25 18:00:00 [facility] XR CHEST 1 VIEW 2019-03-25 16:10:00 GucciBritton [facility]/BEDSIDE [facility] APTT 2019-03-25 15:30:00 [facility] BASIC METABOLIC PANEL (7) 2019-03-25 11:46:00 Tomer Lora [facility] BLOOD GAS, ARTERIAL 2019-03-25 11:43:00 Broderick Nieto [facility], [facility] POCT-GLUCOSE METER 2019-03-25 11:40:00 Laya Tabares [facility] APTT 2019-03-25 09:33:00 Britton Renee [facility] BLOOD CULTURE 2019-03-25 09:32:00 [facility] SPUTUM CULTURE + GRAM STAIN 2019-03-25 09:08:00 Dread Renee [facility] URINE CULTURE 2019-03-25 09:08:00 Britton Renee [facility] URINALYSIS W/ REFLEX URINE 2019-03-25 09:08:00 Steve Renee [facility] ECG 12-LEAD 2019-03-25 08:09:17 Britton Renee [facility] POCT-GLUCOSE METER 2019-03-25 06:06:00 Laya Tabares [facility] XR CHEST 1 VIEW 2019-03-25 04:03:00 Artur Ariza [facility] MAGNESIUM 2019-03-25 03:30:00 Antonio Grace [facility] PHOSPHORUS 2019-03-25 03:30:00 Antonio Grace [facility] BASIC METABOLIC PANEL (7) 2019-03-25 03:30:00 Tomer Lora [facility] APTT 2019-03-25 03:09:00 Britton Renee [facility] CBC W/PLT COUNT & AUTO 2019-03-25 03:09:00 Antonio Grace [facility] POCT-GLUCOSE METER 2019-03-25 00:01:00 Laya Tabares [facility] BASIC METABOLIC PANEL (7) 2019-03-24 20:31:00 Tomer Lora [facility] APTT 2019-03-24 20:31:00 Britton Renee [facility] POCT-GLUCOSE METER 2019-03-24 18:07:00 Laya Tabares [facility] XR CHEST 1 VIEW 2019-03-24 17:12:00 Aurelio Cassidy [facility]/BEDSIDE [facility] XR ABDOMEN / KUB 1 VIEW 2019-03-24 17:12:00 Aurelio Cassidy [facility] BASIC METABOLIC PANEL (7) 2019-03-24 12:36:00 Tomer Lora [facility] APTT 2019-03-24 12:36:00 NemBritton albarran [facility] POCT-GLUCOSE METER 2019-03-24 12:17:00 Laya Tabares [facility] BLOOD GAS, ARTERIAL 2019-03-24 12:04:00 Gerson Vonnierocio Ponce [facility] EEG EXTENDED MONITORING 40 - 2019-03-24 11:23:00 NemehAden [facility] 60 MINUTES [facility] POCT-GLUCOSE METER 2019-03-24 05:58:00 Tomer Lora [facility] BLOOD GAS, ARTERIAL 2019-03-24 04:29:00 Fredi Acosta [facility] APTT 2019-03-24 04:25:00 Britton Renee [facility] MAGNESIUM 2019-03-24 04:10:00 Antonio Grace [facility] PHOSPHORUS 2019-03-24 04:10:00 Antonio Grace [facility] BASIC METABOLIC PANEL (7) 2019-03-24 04:10:00 Tomer Lora [facility] CBC W/PLT COUNT & AUTO 2019-03-24 04:10:00 Antonio Grace [facility] XR CHEST 1 VIEW 2019-03-24 03:00:00 Artur Ariza [facility] CT BRAIN WITHOUT IV CONTRAST 2019-03-24 01:12:00 Fredi Acosta [facility] POCT-GLUCOSE METER 2019-03-24 00:05:00 Tomer Lora [facility] VANCOMYCIN LEVEL, TROUGH 2019-03-23 23:59:00 Lina Adkins [facility] BASIC METABOLIC PANEL (7) 2019-03-23 19:44:00 Tomer Lora [facility] BASIC METABOLIC PANEL (7) 2019-03-23 15:55:00 Tomer Lora [facility] HEPATIC FUNCTION PANEL 2019-03-23 15:55:00 Tomer Lora [facility] AMMONIA 2019-03-23 15:55:00 MedstephanieArtur [facility] MAGNESIUM 2019-03-23 05:58:00 Antonio Grace [facility] PHOSPHORUS 2019-03-23 05:58:00 Antonio Grace [facility] BASIC METABOLIC PANEL (7) 2019-03-23 05:58:00 Tomer Lora [facility] APTT 2019-03-23 05:58:00 [facility] BLOOD GAS, ARTERIAL 2019-03-23 05:58:00 Petrona Fountain [facility] CBC W/PLT COUNT & AUTO 2019-03-23 05:58:00 Antonio Grace [facility] (CELLAVISION MANUAL DIFF) 2019-03-23 05:58:00 Antonio Grace [facility] POCT-GLUCOSE METER 2019-03-23 05:24:00 Tomer Lora [facility] POCT-GLUCOSE METER 2019-03-23 00:09:00 Tomer Lora [facility] APTT 2019-03-22 23:35:00 Britton Renee [facility] BASIC METABOLIC PANEL (7) 2019-03-22 20:05:00 Tomer Lora [facility] PT/APTT 2019-03-22 17:15:00 Tomer Lora [facility] AFB CULTURE + SMEAR 2019-03-22 14:37:00 Tomer Lora [facility] (NON-SPUTUM) [facility] BODY FLUID CELL COUNT WITH 2019-03-22 14:37:00 Tomer Lora [facility] FUNGUS CULTURE + SMEAR 2019-03-22 14:37:00 Tomer Lora [facility] SPIN/CONCENTRATION CHARGE 2019-03-22 14:37:00 Tomer Lora [facility] ADENOSINE DEAMINASE, FLUID 2019-03-22 14:36:00 Tomer Lora [facility] BODY FLUID CULTURE + GRAM 2019-03-22 14:36:00 Tomer Lora [facility] GLUCOSE PLEURAL FLUID 2019-03-22 14:36:00 Tomer Lora [facility] LACTATE DEHYDROGENASE (LD), 2019-03-22 14:36:00 Tomer Lora Ba [facility] PH, BODY FLUID 2019-03-22 14:36:00 Tomer Lora [facility] PROTEIN, TOTAL, PLEURAL 2019-03-22 14:36:00 Tomer Lora [facility] TRIGLYCERIDES, PLEURAL FLUID 2019-03-22 14:36:00 Tomer Lora [facility] ADENOSINE DEAMINASE, FLUID 2019-03-22 14:35:00 Tomer Lora [facility] AFB CULTURE + SMEAR 2019-03-22 14:35:00 Tomer Lora [facility] (NON-SPUTUM) [facility] ALBUMIN PLEURAL FLUID 2019-03-22 14:35:00 Tomer Lora [facility] BODY FLUID CELL COUNT WITH 2019-03-22 14:35:00 Tomer Lora [facility] BODY FLUID CULTURE + GRAM 2019-03-22 14:35:00 Tomer Lora [facility] FUNGUS CULTURE + SMEAR 2019-03-22 14:35:00 Tomer Lora [facility] GLUCOSE PLEURAL FLUID 2019-03-22 14:35:00 Tomer Lora [facility] LACTATE DEHYDROGENASE (LD), 2019-03-22 14:35:00 Tomer Lora Ba [facility] PROTEIN, TOTAL, PLEURAL 2019-03-22 14:35:00 Tomer Lora [facility] PH, BODY FLUID 2019-03-22 14:35:00 Tomer Lora [facility] TRIGLYCERIDES, PLEURAL FLUID 2019-03-22 14:35:00 Tomer Lora [facility] BRONCHIAL CULTURE + GRAM 2019-03-22 14:32:00 Tomer Lora ra [facility] FUNGUS CULTURE + SMEAR 2019-03-22 14:32:00 Tomer Lora [facility] LEGIONELLA CULTURE 2019-03-22 14:32:00 Tomer Lora [facility] AFB CULTURE + SMEAR 2019-03-22 14:32:00 Tomer Lora CH, I [facility] (NON-SPUTUM) [facility] SPIN/CONCENTRATION CHARGE 2019-03-22 14:32:00 Tomer Lora [facility] BLOOD CULTURE 2019-03-22 09:35:00 Britton Renee [facility] BASIC METABOLIC PANEL (7) 2019-03-22 09:35:00 Tomer Lora [facility] APTT 2019-03-22 09:35:00 Britton Renee [facility] XR CHEST 1 VIEW 2019-03-22 08:09:00 Antonio Grace [facility] PORTABLE/BEDSIDE [facility] Center POCT-GLUCOSE METER 2019-03-22 05:53:00 Tomer Lora [facility] VANCOMYCIN LEVEL, TROUGH 2019-03-22 01:58:00 Josh Keri [facility] MAGNESIUM 2019-03-22 01:58:00 Antonio Grace [facility] PHOSPHORUS 2019-03-22 01:58:00 Antonio Grace [facility] BASIC METABOLIC PANEL (7) 2019-03-22 01:58:00 Tomer Lora [facility] CBC W/PLT COUNT & AUTO 2019-03-22 01:58:00 Antonio Grace [facility] POCT-GLUCOSE METER 2019-03-22 00:30:00 Tomer Lora [facility] BASIC METABOLIC PANEL (7) 2019-03-21 21:52:00 Tomer Lora [facility] TRANSFUSION SERVICE REPORT - 2019-03-21 21:06:03 Provider, Uday macias [facility] BODY FLUID CULTURE + GRAM 2019-03-21 19:34:00 Broderick Nieto [facility] BODY FLUID CELL COUNT WITH 2019-03-21 19:10:00 Broderick Nieto [facility] FUNGUS CULTURE + SMEAR 2019-03-21 19:10:00 [facility] PH, BODY FLUID 2019-03-21 19:10:00 Kishore [facility] PROTEIN, TOTAL, PLEURAL 2019-03-21 19:10:[address] [facility] TRIGLYCERIDES, PLEURAL FLUID 2019-03-21 19:10:00 Patricia Nieto [facility] ALBUMIN PLEURAL FLUID 2019-03-21 19:09:00 Kishore [facility] GLUCOSE PLEURAL FLUID 2019-03-21 19:09:00 Broderick Nieto [facility] LACTATE DEHYDROGENASE (LD), 2019-03-21 19:09:00 Devon Nieto [facility] US DRAINAGE CHEST WITH TUBE 2019-03-21 18:25:00 Tomer oLra Ba [facility] MRSA SCREEN 2019-03-21 08:50:00 Britton Renee [facility] RAPID INFLUENZA A&B SCREEN 2019-03-21 08:50:00 Tomer Lora [facility] RESPIRATORY PANEL [facility] 2019-03-21 08:50:00 Tomer Lora [facility] RETICULOCYTE COUNT 2019-03-21 08:50:00 Tomer Lora [facility] FERRITIN 2019-03-21 08:49:00 Tomer Lora [facility] IRON, TIBC, % SAT. (WITHOUT 2019-03-21 08:49:00 Lora, Tomer Ba [facility] LACTATE DEHYDROGENASE (LDH) 2019-03-21 08:49:00 [facility] VIT[facility] B12 AND FOLATE 2019-03-21 08:49:00 Tomer Lora [facility] BASIC METABOLIC PANEL (7) 2019-03-21 08:49:00 Tomer Lora [facility] MAGNESIUM 2019-03-21 08:49:00 Tomer Lora [facility] POCT-GLUCOSE METER 2019-03-21 05:34:00 Tomer Lora [facility] US ABDOMEN LIMITED 2019-03-21 03:55:00 Antonio Grace [facility] MAGNESIUM 2019-03-21 02:03:00 Antonio Grace [facility] PHOSPHORUS 2019-03-21 02:03:00 Antonio Grace [facility] CBC W/PLT COUNT & AUTO 2019-03-21 02:03:00 Antonio Grace [facility] (CELLAVISION MANUAL DIFF) 2019-03-21 02:03:00 Antonio Grace [facility] BASIC METABOLIC PANEL (7) 2019-03-21 00:18:00 Broderick Nieto [facility] MAGNESIUM 2019-03-21 00:18:00 Antonio Grace [facility] POCT-GLUCOSE METER 2019-03-20 23:46:00 Tomer Lora [facility] ECHOCARDIOGRAM REPORT - SCAN 2019-03-20 21:22:37 Uday Wilkes lt [facility] POCT-GLUCOSE METER 2019-03-20 18:11:00 Tomer Lora [facility] BLOOD GAS, ARTERIAL 2019-03-20 16:34:00 Britton Renee [facility] BASIC METABOLIC PANEL (7) 2019-03-20 16:33:00 Borderick Nieto [facility] MAGNESIUM 2019-03-20 16:33:00 Antonio Grace [facility] VANCOMYCIN LEVEL, TROUGH 2019-03-20 12:58:00 Britton Renee [facility] ECG 12-LEAD 2019-03-20 12:42:24 Unknown, [id number] [facility] POCT-GLUCOSE METER 2019-03-20 12:14:00 Guido Tomer [facility] 2D ECHO W/ DOPPLER 2019-03-20 11:05:52 Tomer Lora [facility] (CW/PW/COLOR) [facility] CT CHEST WITHOUT IV CONTRAST 2019-03-20 10:45:00 Aden Renee [facility] SPUTUM CULTURE + GRAM STAIN 2019-03-20 06:31:00 Antonio Grace [facility] TROPONIN I 2019-03-20 05:49:00 Antonio Grace [facility] ABORH, MANUAL 2019-03-20 05:48:00 Trista Salmeron [facility] POCT-GLUCOSE METER 2019-03-20 05:44:00 Tomer Lora [facility] XR CHEST 1 VIEW 2019-03-20 04:05:00 Antonio Grace [facility] Medical Center BLOOD GAS, ARTERIAL 2019-03-20 03:14:00 Sanjay [facility] BLOOD CULTURE 2019-03-20 03:08:00 Antonio Grace [facility] VANCOMYCIN LEVEL, RANDOM 2019-03-20 03:00:00 Antonio Grace [facility] B-TYPE NATRIURETIC FACTOR 2019-03-20 03:00:00 Antonio Grace [facility] (BNP) [facility] HEMOGLOBIN A1C 2019-03-20 03:00:00 Sanjay [facility] TSH/FREE T4 IF INDICATED 2019-03-20 03:00:00 Antonio Grace [facility] PROTHROMBIN TIME/INR 2019-03-20 03:00:00 Sanjay [facility] PT/APTT 2019-03-20 03:00:00 [facility] LACTIC ACID, VENOUS 2019-03-20 03:00:00 [facility], [facility] FIBRINOGEN 2019-03-20 03:00:00 Combdiana [facility] TYPE AND SCREEN, AUTOMATED 2019-03-20 03:00:00 Sanjay [facility] BASIC METABOLIC PANEL (7) 2019-03-20 02:59:00 [facility] HEPATIC FUNCTION PANEL 2019-03-20 02:59:00 [facility], [facility] MAGNESIUM 2019-03-20 02:59:00 [facility] PHOSPHORUS 2019-03-20 02:59:00 [facility] TROPONIN I 2019-03-20 02:59:00 [facility] LIPID PANEL 2019-03-20 02:59:00 [facility] CBC W/PLT COUNT & AUTO 2019-03-20 02:59:[address] [facility] LEGIONELLA URINE ANTIGEN 2019-03-20 02:23:00 [facility] URINE CULTURE 2019-03-20 02:22:00 Sanjay [facility] SODIUM, RANDOM URINE 2019-03-20 02:22:00 [facility] CHLORIDE, RANDOM URINE 2019-03-20 02:22:00 [facility] CREATININE, RANDOM URINE 2019-03-20 02:22:00 [facility] UREA NITROGEN, RANDOM URINE 2019-03-20 02:22:00 [facility] PROTEIN, RANDOM URINE 2019-03-20 02:22:00 Combithkunal [facility] OSMOLALITY, URINE 2019-03-20 02:22:00 [facility] URINALYSIS W/ REFLEX URINE 2019-03-20 02:22:00 Antonio Grace [facility] POCT-GLUCOSE METER 2019-03-20 00:39:00 Tomer Lora [facility] ECG 12-LEAD 2019-03-20 00:28:11 Unknown, [id number] [facility] REPORT OF PROCEDURE - 2019-01-28 13:40:05 Provider, [facility] ENDOSCOPY SCAN Scanning [facility] RHYTHM STRIP - SCAN 2019-01-28 13:40:02 Provider, [facility] BASIC METABOLIC PANEL (7) 2019-01-24 04:31:00 Josue Rich [facility] MAGNESIUM 2019-01-24 04:31:[facility] 2019-01-24 04:31:00 Jose [facility] CBC W/PLT COUNT & AUTO 2019-01-24 04:31:00 Josue Rich [facility] TROPONIN I 2019-01-23 21:59:00 [facility] - SCAN 2019-01-23 21:21:25 [facility], [facility] TROPONIN I 2019-01-23 16:02:00 Josue Rich [facility] TSH/FREE T4 IF INDICATED 2019-01-23 10:13:00 [facility] 2019-01-23 10:13:00 Josue Rich [facility] B-TYPE NATRIURETIC FACTOR 2019-01-23 10:13:00 Josue Rich [facility] (BNP) [facility] ECG 12-LEAD 2019-01-23 09:00:25 Hilario [facility] MRA HEAD WITHOUT IV CONTRAST 2019-01-23 08:01:00 Josue Rich [facility] BASIC METABOLIC PANEL (7) 2019-01-23 04:59:00 Josue Rich CH, I [facility] MAGNESIUM 2019-01-23 04:59:00 Josue Rich [facility] CBC W/PLT COUNT & AUTO 2019-01-23 04:59:00 Josue Rich [facility] POTASSIUM 2019-01-22 19:43:00 Josue Rich [facility] MR BRAIN WITHOUT IV CONTRAST 2019-01-22 18:11:00 Aden Hamilton [facility] CTA BRAIN 2019-01-22 16:59:00 Katiana Earl [facility] CT/CTA CAROTID 2019-01-22 16:59:00 Laureano [facility] 2D ECHO W/ DOPPLER 2019-01-22 13:16[facility] LIPID PANEL 2019-01-22 04:17:00 [facility] HEMOGLOBIN A1C 2019-01-22 04:17:00 [facility] TROPONIN I 2019-01-22 04:17:00 [facility] MAGNESIUM 2019-01-22 04:17:00 Hilario [facility] BASIC METABOLIC PANEL (7) 2019-01-21 23:26:00 [facility] TROPONIN I 2019-01-21 23:26:00 [facility] TSH/FREE T4 IF INDICATED 2019-01-21 23:26:00 Iris Freeman [facility] RPR 2019-01-21 23:26:00 Iris Freeman [facility] VITAMIN B12 AND FOLATE 2019-01-21 23:26:00 Iris Freeman [facility] PROTHROMBIN TIME/INR 2019-01-21 23:26:00 Iris Freeman CH [facility] CBC W/PLT COUNT & AUTO 2019-01-21 23:26:00 Britton Hamilton CH I [facility] - DIFFERENTIAL [facility] XR CHEST 1 VIEW 2019-01-21 23:19:00 Iris Freeman [facility] - PORTABLE/BEDSIDE Medical Center Plan of Care Planned Activity Planned Date Details Comments Source Future Scheduled 2022-03-20 Lipid panel [facility] s - Test 00:00:00 (procedure) [code = Medical Center [id number]] Future Scheduled 2019-10-28 INFLUENZA VACCINE (#1) [facility] - Test 00:00:00 [code = INFLUENZA Medical Ce nter VACCINE (#1)] Future Scheduled [address] [facility] - Test 00:00:00 2-64 YEARS AT RISK (1 Medica l Center of 1 - PPSV23) [code = PNEUMOCOCCAL VACCINE 2-64 YEARS AT RISK (1 of 1 - PPSV23)] Future Scheduled 1955 Screening for [facility] es - Test 00:00:00 [facility] (procedure) [code = 708154174] Encounters Start End Encounter Admission Attending Care Care Encounter Source Date/Time Date/Time Type Type Clinicians Facility Department ID 2019-08-20 2019-08-20 Refill NATAN Edmond 1.2.840.114 [id number] 00:00:00 00:00:00 Wonrhys Figueroa 350.1.13.10 [place] 4.2.7.2.[id number] 2019-08-08 2019-08-08 Orders Doctor HYACINTH 1.2.840.114 [id number] 00:00:00 00:00:00 Only Unassigned, MARIO 350.1.13.10 [facility] 4.2.7.2.686 [id number] 2019-08-07 2019-08-07 Office NATAN Edmond 1.2.840.114 [id number] 13:49:25 22:20:07 Visit Wonrhys Figueroa 350.1.13.10 [place] 4.2.7.2.686 Sg [id number] nal 044 [facility] 2019-05-08 2019-05-08 Office CORNELL Andrews 1.2.840.114 [id number] 10:44:48 16:34:59 Visit Fernando AMBULATOR 350.1.13.21 Y 0.2.7.2.686 [id number] Results Test Description Test Time Test Comments Results Result Comments Source POC-Glucose meter 2019-06-09 18:49:00 Test Item Value Reference Range Interpretation Comme nts POC-Glucose Meter (test code = 72 mg/dL 70-110 : TESTED AT [facility] [facility] 1538) [facility], 770 30: Pulpit Operator/Techni aaron ID = [id number] for RYAN ECHOLS Lab Interpretation (test code = Normal 02400-9) [facility] [id number] 18:49:00 Test Item Value Reference Range Interpretation Comments POC-GLUCOSE METER 72 mg/dL 70-110 : TESTED A T [facility] [address] (BEAKER) (test code = [facility], 1538) 35779: Pulpit Operator/Techni aaron ID = [id number] for LARISSACely RYAN OCHOA POCT-GLUCOSE [id number] 13:07:00 Test Item Value Reference Range Interpretation Comments POC-GLUCOSE METER 83 mg/dL 70-110 : [facility] (BEAKER) (test code = [facility], 1538) 71503: Pulpit Operator/Techni aaron ID = [id number] for RYAN NICE Comprehensive metabolic [id number] 12:12:00 Test Item Value Reference Range Interpretation Comments Protein, Total (test 6.7 6.0- 8.3 gm/dL Speci men slightly code = 2885-2) hemolyzed Albumin (test code = 2.1 g/dL 3.5-5 L Specime n slightly 78323-9) hemolyzed Alkaline Phosphatase 202 U/L 40-150 H (test code = 6768-6) Total Bilirubin (test 1.2 mg/dL 0.2-1.2 Specim en slightly code = 1975-2) hemolyzed Sodium (test code = 142 meq/L 360-394 2876-2) Potassium (test code = 4.4 meq/L 3.5-5.1 Speci men slightly 2823-3) hemolyzed Chloride (test code = 107 meq/L 98-107 5-0) CO2 (test code = 30 meq/L 22-29 H 8-9) BUN (test code = 25 mg/dL 7-21 H 3094-0) Creatinine (test code 0.76 mg/dL 0.57-1.25 Specim en slightly = 2160-0) hemolyzed Glucose (test code = 108 mg/dL 70-105 H 2345-7) Calcium (test code = 7.9 mg/dL 8.4-10.2 L 11911-4) AST (test code = 77 U/L 5-34 H Specimen sl ightly 1920-8) hemolyzed ALT (test code = 86 U/L 6-55 H Specimen sl ightly 1742-6) hemolyzed EGFR (test code = 103 mL/min/1.73 [place] [address]-9) NOT ACCURATE CREATININE CLEARANCE IN PREDICTING GLOMERULAR FILTRATION RATE . ESTIMATED GFR I S NOT APPLICABLE FOR DIALYSIS PATIENTS. DORI (test code = DORI) Pulpit Operator ID - ELISSA M Lab Interpretation Abnormal (test code = 54791-4) [facility] Center[facility]PRE[facility]ENSIVE METABOLIC [id number] 12:12:00 Test Item Value Reference Range Interpretation [...] S NOT APPLICABLE FOR DIALYSIS PATIEN TS. Pulpit Operator ID - ELISSA MPOCT-GLUCOSE [id number] 06:17:00 Test Item Value Reference Range Interpretation Comments POC-GLUCOSE METER 105 mg/dL 70-110 : TESTED A T [facility] 6720 (BEVerold) (test code = [facility], 153) 00938: Pulpit Operator/Techni aaron ID = [id number] for DO ELIDIA SIMS POCT-GLUCOSE [id number] 23:52:00 Test Item Value Reference Range Interpretation Comments POC-GLUCOSE METER 97 mg/dL 70-110 : [facility] T [facility] 67[facility] (test code = [facility], 153) 73425: Pulpit Operator/Techni aaron ID = [id number] for DULCE BELLO, ELIDIA POCT-GLUCOSE [id number] 18:31:00 Test Item Value Reference Range Interpretation Comments POC-GLUCOSE METER 102 mg/dL 70-110 : TESTED A T [facility] 6720 (Cint) (test code = [facility], 153) 22385: Pulpit Operator/Techni aaron ID = [id number] for CO RTEZ, JOSY POCT-GLUCOSE [id number] 17:27:00 Test Item Value Reference Range Interpretation Comments POC-GLUCOSE METER 106 mg/dL 70-110 : TESTED A T [facility] 6720 (BEAKER) (test code = [facility], 153) 41350: Pulpit Operator/Techni aaron ID = [id number] for RA GLAND, LATOYA POCT-GLUCOSE [id number] 23:31:00 Test Item Value Reference Range Interpretation Comments POC-GLUCOSE METER 101 mg/dL 70-110 : TESTED A T [facility] 6720 (BEAKER) (test code = [facility], 153) 50379: Pulpit Operator/Techni aaron ID = [id number] for RA GLAND, LATOYA POCT-GLUCOSE [id number] 18:53:00 Test Item Value Reference Range Interpretation Comments POC-GLUCOSE METER 89 mg/dL 70-110 : TESTED A T [facility] 6720 (BEAKER) (test code [facility], [address]: = 1538) Pulpit Operator/Techni aaron ID = [id number] for VALORIE HONG JAX POCT-GLUCOSE [id number] 17:25:00 Test Item Value Reference Range Interpretation Comments POC-GLUCOSE METER 67 mg/dL 70-110 L : TESTED A T [facility] 6720 (BEAKER) (test code = [facility], 153) 12094: Pulpit Operator/Techni aaron ID = [id number] for DE LA ROSA-DELUNA, KIRSTEN POCT-GLUCOSE [id number] 14:28:00 Test Item Value Reference Range Interpretation Comments POC-GLUCOSE METER 88 mg/dL 70-110 : TESTED A T [facility] 6720 (BEAKER) (test code = [facility], 153) 91663: Pulpit Operator/Techni aaron ID = [id number] for DE LA ROSA-DELUNA, KIRSTEN POCT-GLUCOSE [id number] 06:27:00 Test Item Value Reference Range Interpretation Comments POC-GLUCOSE METER 101 mg/dL 70-110 : TESTED A T [facility] 6720 (BEAKER) (test code = [facility], 153) 98736: Pulpit Operator/Techni aaron ID = [id number] for RA GLAND, LATOYA POCT-GLUCOSE [id number] 23:55:00 Test Item Value Reference Range Interpretation Comments POC-GLUCOSE METER 97 mg/dL 70-110 : TESTED A T [facility] 6720 (BEAKER) (test code = [facility], 153) 12139: Pulpit Operator/Techni aaron ID = [id number] for RAGL AND, LATOYA POCT-GLUCOSE [id number] 17:59:00 Test Item Value Reference Range Interpretation Comments POC-GLUCOSE METER 92 mg/dL 70-110 : TESTED A T [facility] 6720 (BEAKER) (test code = [facility], 153) 63126: Pulpit Operator/Techni aaron ID = [id number] for Cuco, Leeanna POCT-GLUCOSE [id number] 12:15:00 Test Item Value Reference Range Interpretation Comments POC-GLUCOSE METER 103 mg/dL 70-110 : TESTED A T [facility] 6720 (BEAKER) (test code = [facility], 1538) 55984: Pulpit Operator/Techni aaron ID = [id number] for Ree d, Leeanna POCT-GLUCOSE [id number] 05:55:00 Test Item Value Reference Range Interpretation Comments POC-GLUCOSE METER 105 mg/dL 70-110 : TESTED A T [facility] 6720 (BEAKER) (test code = [facility], 153) 05707: Pulpit Operator/Techni aaron ID = [id number] for AHMET CASTELLANOS COMPREHENSIVE METABOLIC [id number] 04:31:00 Test Item Value Reference Range Interpretation [...] S NOT APPLICABLE FOR DIALYSIS PATIEN TS. Pulpit Operator ID - SANDRA WPOCT-GLUCOSE [id number] 00:14:00 Test Item Value Reference Range Interpretation Comments POC-GLUCOSE METER 106 mg/dL 70-110 : TESTED A T [facility] 6720 (BEAKER) (test code = [facility], 1538) 15844: Pulpit Operator/Techni aaron ID = [id number] for UE COSME, AHMET POCT-GLUCOSE [id number] 19:00:00 Test Item Value Reference Range Interpretation Comments POC-GLUCOSE METER 111 mg/dL 70-110 H : TESTED A T [facility] 6720 (BEAKER) (test code = [facility], 1538) 17875: Pulpit Operator/Techni aaron ID = [id number] for CO RTEZ, JOSY POCT-GLUCOSE [id number] 17:05:00 Test Item Value Reference Range Interpretation Comments POC-GLUCOSE METER 101 mg/dL 70-110 : TESTED A T [facility] 6720 (BEAKER) (test code = [facility], 1538) 78374: Pulpit Operator/Techni aaron ID = [id number] for CO RTEZ, JOSY [id number] 17:03:00 Test Item Value Reference Range Interpretation Comments Potassium (test code = 3.9 meq/L 3.5-5.1 2823-3) DORI (test code = DORI) Pulpit Operator ID - BS Lab Interpretation (test Normal code = 37013-5) [facility]2020-[facility] 17:03:00 Test Item Value Reference Range Interpretation Comments POTASSIUM (BEAKER) (test code = 3.9 meq/L 3.5-5.1 379) Pulpit Operator ID - BSBlood Culture - Routine (Right Venipuncture)2019-06-05 10:00:00 Test Item Value Reference Range Interpretation Comments Result (test code = No growth in 5 days 6463-4) [facility] CenterBLO[facility] [id number] 10:00:00 Test Item Value Reference Range Interpretation Comments CULTURE (BEAKER) (test No growth in 5 days code = 1095) Basic Metabolic [id number] 06:28:00 Test Item Value Reference Range Interpretation Comments Sodium (test code = 145 meq/L 595-774 9022-2) Potassium (test code = 3.0 meq/L 3.5-5.1 L 2823-3) Chloride (test code = 101 meq/L 98-107 2075-0) CO2 (test code = 38 meq/L 22-29 H 2028-9) BUN (test code = 28 mg/dL 7-21 H 3094-0) Creatinine (test code 0.87 mg/dL 0.57-1.25 = 2160-0) Glucose (test code = 110 mg/dL 70-105 H 2345-7) Calcium (test code = 7.9 mg/dL 8.4-10.2 L 92173-3) EGFR (test code = 88 mL/min/1.73 [place] [address]-0) NOT ACCURATE CREATININE CLEARANCE IN PREDICTING GLOMERULAR FILTRATION RATE . ESTIMATED GFR I S NOT APPLICABLE FOR DIALYSIS PATIENTS. DORI (test code = DORI) Pulpit Operator ID - PIAYA L Lab Interpretation Abnormal (test code = 80101-6) [facility] Center[facility]IC MET[facility]OLIC [id number] 06:28:00 Test Item Value Reference Range Interpretation [...] S NOT APPLICABLE FOR DIALYSIS PATIEN TS. Pulpit Operator ID - PIAYA LPOCT-GLUCOSE [id number] 06:13:00 Test Item Value Reference Range Interpretation Comments POC-GLUCOSE METER 119 mg/dL 70-110 H : TESTED A T [facility] 6720 (Verold) (test code = [facility], 1538) 03288: Pulpit Operator/Techni aaron ID = [id number] for UE COSME, AHMET BLOOD [id number] 03:01:00 Test Item Value Reference Range Interpretation Comments CULTURE ([facility]) (test No growth in 5 days code = 1095) POCT-GLUCOSE [id number] 00:16:00 Test Item Value Reference Range Interpretation Comments POC-GLUCOSE METER 92 mg/dL 70-110 : TESTED A T [facility] 6720 (Cint) (test code = [facility], 1538) 75733: Pulpit Operator/Techni aaron ID = [id number] for UEMA RU, AHMET POCT-GLUCOSE [id number] 17:55:00 Test Item Value Reference Range Interpretation Comments POC-GLUCOSE METER 104 mg/dL 70-110 : TESTED A T [facility] 6720 (Cint) (test code = [facility], 1538) 23073: Pulpit Operator/Techni aaron ID = [id number] for AN GULO, GEM FL, ESOPH, SWALLOW FUNCTION, WITH CINE OR [id number] 15:08:00Reason for exam:->dysphagiaFINAL REPORT EXAMINATION: Modified barium [...] Lucas Verified Date/Time: 06/04/2019 15:08:42 Reading Location: [address] Transitional Reading Room [place] esoph swallow funct with cine [id number] 15:08:00 Interface, External Ris In - 06/09/2019 [...] Lucas Verified Date/Time: 06/04/2019 15:08:42 Reading Location: [address] Transitional Reading Room Electronically signed by: FREDI LUCAS MDon 06/04/2019 03:08 [facility] [id number] 11:56:00 Test Item Value Reference Range Interpretation Comments POC-GLUCOSE METER 111 mg/dL 70-110 H : [facility] T [facility] (test code = [facility], 153) 05465: Pulpit Operator/Techni aaron ID = [id number] for AN GEM CUMMINGS POCT-GLUCOSE [id number] 06:18:00 Test Item Value Reference Range Interpretation Comments POC-GLUCOSE METER 110 mg/dL 70-110 : [facility] T [facility] 67[facility] (test code = [facility] Enrike [facility], 1538) 68211: Pulpit Operator/Techni aaron ID = [id number] for DO ELIDIA SIMS COMPREHENSIVE METABOLIC [id number] 05:51:00 Test Item Value Reference Range Interpretation [...] S NOT APPLICABLE FOR DIALYSIS PATIEN TS. Pulpit Operator ID - ELISSA MCBC with platelet count + automated [id number] 05:29:00 Test Item Value Reference Range Interpretation [...] 450 K/CU MM MPV (test code = 89153-8) 12.3 fL 9.4-12.4 nRBC (test code = [...] 2801) Lab Interpretation (test code = Abnormal 29356-4) [facility] W/PLT COUNT & AUTO [id number] 05:29:00 Test Item Value Reference Range Interpretation [...] (BEAKER) (test code = 2801) U/S, ABDOMINAL, [id number] 04:00:00Abdomen limited area? Add comment if clarification [...] Tyler MDReport Verified Date/Time:06/04/2019 04:00:37 US abdomen [id number] 04:00:00 Interface, External Ris In - 06/04/2019 [...] explain the patient's elevated LFTs.Signed: Reji Tyler MDReport Verified Date/Time: 06/04/2019 04:00:37 [facility] [id number] 23:50:00 Test Item Value Reference Range Interpretation Comments POC-GLUCOSE METER 115 mg/dL 70-110 H : TESTED A T [facility] 6720 (Cint) (test code = [facility], 1538) 12935: Pulpit Operator/Techni aaron ID = [id number] for ELIDIA VALDES POCT-GLUCOSE [id number] 18:03:00 Test Item Value Reference Range Interpretation Comments POC-GLUCOSE METER 126 mg/dL 70-110 H : TESTED A T [facility] 6720 (Cint) (test code = [facility] Enrike [facility], 1538) 84251: Pulpit Operator/Techni aaron ID = [id number] for ALAN BONILLA [id number] 15:27:00 Test Item Value Reference Range Interpretation Comments Ammonia (test code = 82 18- 72 mol/L H 01999-6) DORI (test code = DORI) Pulpit Operator ID - BS Lab Interpretation (test Abnormal code = 32350-2) [facility] CenterAMMONIA2020-04-07 15:27:00 Test Item Value Reference Range Interpretation Comments AMMONIA (BEAKER) (test code = 348) 82 mol/L 18-72 H Pulpit Operator ID - BSMRSA [id number] 12:47:00 Test Item Value Reference Range Interpretation Comments Result (test code = 6463-4) No MRSA isolated [facility] CenterMRSA [id number] 12:47:00 Test Item Value Reference Range Interpretation Comments CULTURE (BEAKER) (test code No MRSA isolated = 1095) POCT-GLUCOSE [id number] 12:25:00 Test Item Value Reference Range Interpretation Comments POC-GLUCOSE METER 123 mg/dL 70-110 H : TESTED A T [facility] 6720 (BEAKER) (test code = [facility], 1538) 43554: Pulpit Operator/Techni aaron ID = [id number] for ALAN BONILLA POCT-GLUCOSE [id number] 06:32:00 Test Item Value Reference Range Interpretation Comments POC-GLUCOSE METER 106 mg/dL 70-110 : TESTED A T [facility] 6720 (BEAKER) (test code = [facility], 1538) 20847: Pulpit Operator/Techni aaron ID = [id number] for ELIDIA VALDES [id number] 06:13:00 Test Item Value Reference Range Interpretation Comments Magnesium (test code = 2.2 mg/dL 1.6-2.6 Speci men 20803-7) slightly hemolyzed DORI (test code = DORI) Pulpit Operator ID - BS Lab Interpretation Normal (test code = 61865-0) [facility] CenterMAGNESIUM2020-04-07 06:13:00 Test Item Value Reference Range Interpretation Comments MAGNESIUM (BEAKER) 2.2 mg/dL 1.6-2.6 Specimen slightly (test code = 627) hemolyzed Pulpit Operator ID - BSCOMPREHENSIVE METABOLIC [id number] 06:13:00 Test Item Value Reference Range Interpretation [...] S NOT APPLICABLE FOR DIALYSIS PATIEN TS. Pulpit Operator ID - BSCBC W/PLT COUNT & AUTO [id number] 05:58:00 Test Item Value Reference Range Interpretation [...] PERCENT (BEAKER) (test code = 2801) POCT-GLUCOSE [id number] 00:22:00 Test Item Value Reference Range Interpretation Comments POC-GLUCOSE METER 133 mg/dL 70-110 H : TESTED A T [facility] 6720 (BEAKER) (test code = [facility], 1538) 21602: Pulpit Operator/Techni aaron ID = [id number] for ELIDIA VALDES POCT-GLUCOSE [id number] 18:09:00 Test Item Value Reference Range Interpretation Comments POC-GLUCOSE METER 129 mg/dL 70-110 H : TESTED A T [facility] 6720 (BEAKER) (test code = [facility], 1538) 76896: Pulpit Operator/Techni aaron ID = [id number] for DE NNIS, RYAN BASIC METABOLIC [id number] 16:10:00 Test Item Value Reference Range Interpretation [...] S NOT APPLICABLE FOR DIALYSIS PATIEN TS. Pulpit Operator ID - BSPOCT-GLUCOSE [id number] 12:41:00 Test Item Value Reference Range Interpretation Comments POC-GLUCOSE METER 120 mg/dL 70-110 H : TESTED A T [facility] 6720 (BEAKER) (test code = [facility], 1538) 23809: Pulpit Operator/Techni aaron ID = [id number] for DE RYAN PLEITEZ Blood gas, [id number] 08:24:00 Test Item Value Reference Range Interpretation [...] % Lab Interpretation (test code = Abnormal 44499-6) [facility] CenterBLOOD GAS, [id number] 08:24:00 Test Item Value Reference Range Interpretation [...] (test code = 1819) 21.0 % POCT-GLUCOSE [id number] 08:22:00 Test Item Value Reference Range Interpretation Comments POC-GLUCOSE METER 143 mg/dL 70-110 H : TESTED A T [facility] 6720 (BEAKER) (test code = [facility], 1538) 16644: Pulpit Operator/Techni aaron ID = [id number] for GENEVIEVE LERMAISAlia ECG 12 [id number] 07:02:11Interface, External Ris In - 06/02/2019 7:02 AM CDTVentricular Rate 83 BPMAtrial Rate 76 BPMQRS Duration 122 msQ-T Interval 376 msQTC Calculation(Bazett) 441 msR Dundee 9 degreesT [place] 168 degreesAtrial fibrillationLeft ventricular hypertrophy with QRS wideningNonspecific ST and T wave abnormalityAbnormal ECGWhen compared with ECG of 30-MAY-2019 19:25,No significant change was foundConfirmed by MD SANAZ, GETACHEW ([id number]) on 06/02/2019 7:02:10 [facility] 03:10:00 Test Item Value Reference Range Interpretation Comments MAGNESIUM (BEAKER) (test code = 1.9 mg/dL 1.6-2.6 627) Pulpit Operator ID - SANDRA WCOMPREHENSIVE METABOLIC [id number] 02:30:00 Test Item Value Reference Range Interpretation [...] S NOT APPLICABLE FOR DIALYSIS PATIEN TS. Pulpit Operator ID - SANDRA RichardsVancomycin level, [id number] 02:22:00 Test Item Value Reference Range Interpretation Comments Vancomycin Tr (test code = 32.2 ug/mL 10-20 4092-3) DORI (test code = DORI) Pulpit Operator ID - SANDRA W Lab Interpretation (test Abnormal code = 98666-4) [facility] CenterVANCOMYCIN LEVEL, [id number] 02:22:00 Test Item Value Reference Range Interpretation Comments VANCOMYCIN TROUGH (BEAKER) (test 32.2 ug/mL 10.0-20.0 code = 522) Pulpit Operator ID - SANDRA WCBC W/PLT COUNT & AUTO [id number] 02:07:00 Test Item Value Reference Range Interpretation [...] PERCENT (BEAKER) (test code = 2801) POCT-GLUCOSE [id number] 23:29:00 Test Item Value Reference Range Interpretation Comments POC-GLUCOSE METER 93 mg/dL 70-110 : TESTED A T [facility] 6720 (BEAKER) (test code = [facility], 1538) 75533: Pulpit Operator/Techni aaron ID = [id number] for MSIB I, MNCEDISI POCT-GLUCOSE [id number] 18:01:00 Test Item Value Reference Range Interpretation Comments POC-GLUCOSE METER 80 mg/dL 70-110 : TESTED A T [facility] 6720 (BEAKER) (test code = [facility], 1538) [address]: Pulpit Operator/Techni aaron ID = [id number] for GEM MOREJON 2D Echo W/Doppler(CW/PW/Color)2019-06-01 17:21:41Ejection FractionSLEH ECHO HEARTLAB MKCKESSON CPACSInterface, External Ris In - 06/01/2019 5:21 PM C DTTransthoracic Echocardiography Report (TTE) Demographics Patient Name JOHN DELUNA Date of Study 06/01/2019 Gender Male Visit Number [id number] Race Unknown Room Number C724 Number Date of 1955 Referring Physician Ole Dominguez MD Age 63 year(s) 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 6720 (BEAKER) (test code = [place], 1538) [address]: Pulpit Operator/Techni aaron ID = [id number] for GEM MOREJON BASIC METABOLIC [id number] 11:33:00 Test Item Value Reference Range Interpretation [...] S NOT APPLICABLE FOR DIALYSIS PATIEN TS. Pulpit Operator ID Sultana SCOTT WFygvpexfsx8953-74-25 11:30:00 Test Item Value Reference Range Interpretation Comments Phosphorus (test code = 4.3 mg/dL 2.3-4.7 2777-1) DORI (test code = DORI) Pulpit Operator ID - SONIA F Lab Interpretation (test Normal code = 54568-9) [facility] 11:30:00 Test Item Value Reference Range Interpretation Comments PHOSPHORUS (BEAKER) (test code = 4.3 mg/dL 2.3-4.7 604) Pulpit Operator ID - SONIA [id number] 11:30:00 Test Item Value Reference Range Interpretation Comments MAGNESIUM (BEAKER) (test code = 1.7 mg/dL 1.6-2.6 627) Pulpit Operator ID - SONIA FCBC W/PLT COUNT & AUTO [id number] 11:20:00 Test Item Value Reference Range Interpretation [...] PERCENT (BEAKER) (test code = 2801) POCT-GLUCOSE [id number] 07:42:00 Test Item Value Reference Range Interpretation Comments POC-GLUCOSE METER 82 mg/dL 70-110 : TESTED A T [facility] 6720 (BEAKER) (test code = [facility], 1538) [address]: Pulpit Operator/Techni aaron ID = [id number] for RAGL AND, LATOYA POCT-GLUCOSE [id number] 23:33:00 Test Item Value Reference Range Interpretation Comments POC-GLUCOSE METER 90 mg/dL 70-110 : TESTED A T [facility] 6720 (BEAKER) (test code = [facility], 1538) 77[address]: Pulpit Operator/Techni aaron ID = [id number] for RAGL AND, LATOYA POCT-GLUCOSE [id number] 18:34:00 Test Item Value Reference Range Interpretation Comments POC-GLUCOSE METER 83 mg/dL 70-110 : TESTED A T [facility] 6720 (BEAKER) (test code = ILDA Calvert [facility], 1538) [address]: Pulpit Operator/Techni aaron ID = [id number] for GEM MOREJON POCT-GLUCOSE [id number] 18:27:00 Test Item Value Reference Range Interpretation Comments POC-GLUCOSE METER 88 mg/dL 70-110 : TESTED A T [facility] 6720 (YELITZA) (test code = [facility] Enrike [facility], 1538) 61469: Pulpit Operator/Techni aaron ID = [id number] for GEM MOREJON POCT-GLUCOSE [id number] 18:22:00 Test Item Value Reference Range Interpretation Comments POC-GLUCOSE METER 84 mg/dL 70-110 : TESTED A T [facility] 6720 (YELITZA) (test code = [facility] Enrike [facility], 1538) 45[address]: Pulpit Operator/Techni aaron ID = [id number] for ELIDIA BLACKWOOD Prothrombin time/[id number] 11:01:00 Test Item Value Reference Range Interpretation [...] valves. Lab Interpretation Abnormal (test code = 24235-2) [facility] CenterPROTHROMBIN TIME/[id number] 11:01:00 Test Item Value Reference Range Interpretation [...] for patients wiht mechanical heart valves.Hepatitis panel, [id number] 09:24:00 Test Item Value Reference Range Interpretation Comments Hep A IgM (test code = Reactive Nonreactive A 21162-6) Hep B C IgM (test code = Nonreactive Nonreactive 96491-7) Hepatitis C Ab (test Nonreactive Nonreactive code = 18916-4) HBsAg Screen (test code Nonreactive Nonreactive = 5195-3) DORI (test code = DORI) Pulpit Operator ID - SONIA F Lab Interpretation (test Abnormal code = 05880-2) [facility] Center[facility]AT[facility]IS PANEL, [id number] 09:24:00 Test Item Value Reference Range Interpretation Comments HEPATITIS A IGM ANTIBODY (BEAKER) Reactive Nonreactive A (test code = 498) HEPATITIS B CORE IGM ANTIBODY Nonreactive Nonreactive (BEAKER) (test code = 645) HEPATITIS C ANTIBODY (BEAKER) Nonreactive Nonreactive (test code = 367) HEPATITIS B SURFACE ANTIGEN (2) Nonreactive Nonreactive (BEAKER) (test code = 2585) Pulpit Operator ID - SONIA FB-type Natriuretic Factor (BNP)2019-05-31 09:06:00 Test Item Value Reference Range Interpretation Comments BNP (test code = 83398-9) 1536 pg/mL 0-100 H DORI (test code = DORI) Pulpit Operator ID - ALMA W Lab Interpretation (test Abnormal code = 01824-2) [facility] CenterB-TYPE NATRIURETIC FACTOR (BNP)2019-05-31 09:06:00 Test Item Value Reference Range Interpretation Comments B-TYPE NATRIURETIC PEPTIDE 1536 pg/mL 0-100 H (BEAKER) (test code = 700) Pulpit Operator ID - ALMA WCOMPREHENSIVE METABOLIC [id number] 09:02:00 Test Item Value Reference Range Interpretation [...] S NOT APPLICABLE FOR DIALYSIS PATIEN TS. Pulpit Operator ID - ALMA RichardsVancomycin level, [id number] 08:59:00 Test Item Value Reference Range Interpretation Comments Vancomycin Rm (test 18.6 ug/mL code = 92237-3) DORI (test code = Reference Range: No DORI) NormalsOperator ID - ALMA Richards [facility] CenterVANCOMYCIN LEVEL, [id number] 08:59:00 Test Item Value Reference Range Interpretation Comments VANCOMYCIN RANDOM (BEAKER) (test 18.6 ug/mL code = 523) Reference Range: No NormalsOperator ID - ALMA WCBC W/PLT COUNT & AUTO [id number] 08:43:00 Test Item Value Reference Range Interpretation [...] (BEAKER) (test code = 2801) Creatinine, random [id number] 05:47:00 Test Item Value Reference Range Interpretation Comments Creatinine, Ur 24.9 mg/dL (test code = 2161-8) DORI (test code = Reference Range: No DORI) NormalsOperator ID - PIAYA L [facility]odium[facility] [id number] 05:47:00 Test Item Value Reference Range Interpretation Comments Sodium Urine (test 59 meq/L code = 2955-3) DORI (test code = Reference Range: No DORI) NormalsOperator ID - PIAYA L [facility] CenterUrea Nitrogen, random [id number] 05:47:00 Test Item Value Reference Range Interpretation Comments Urea Nitrogen, Ur 332 mg/dL (test code = 3095-7) DORI (test code = Reference Range: No DORI) NormalsOperator ID - PIAYA L [facility] CenterCREATININE, RANDOM [id number] 05:47:00 Test Item Value Reference Range Interpretation Comments CREATININE URINE (BEAKER) (test 24.9 mg/dL code = 375) Reference Range: No NormalsOperator ID - PIAYA LSODIUM, RANDOM [id number] 05:47:00 Test Item Value Reference Range Interpretation Comments SODIUM URINE (BEAKER) (test code = 59 meq/L 243) Reference Range: No NormalsOperator ID - PIAYA LUREA NITROGEN, RANDOM URINE 2019-05-31 05:47:00 Test Item Value Reference Range Interpretation Comments UREA NITROGEN URINE (BEAKER) (test 332 mg/dL code = 538) Reference Range: No NormalsOperator ID - PIAYA LPOCT-GLUCOSE [id number] 00:03:00 Test Item Value Reference Range Interpretation Comments POC-GLUCOSE METER 89 mg/dL 70-110 : TESTED A T [facility] 6720 (BEAKER) (test code = IL[place], 1538) [address]: Pulpit Operator/Techni aaron ID = [id number] for ELIDIA BLACKWOOD RAD, CHEST, 1 VIEW, NON [id number] 22:00:00Reason for exam:->Pt with noted OSH R [...] overlies the left upper quadrant. Signed: Reji Tylerort Verified Date/Time: 05/30/2019 22:00:23 XR chest 1 view portable / [id number] 22:00:00Interface, External Ris In - 05/30/2019 10:02 [...] overlies the left upper quadrant. Signed: Reji Tylerort Verified Date/Time: 05/30/2019 22:00:23 [facility]COM[facility] [id number] 21:22:00 Test Item Value Reference Range Interpretation [...] S NOT APPLICABLE FOR DIALYSIS PATIEN TS. Pulpit Operator ID - CDPPROTHROMBIN TIME/[id number] 21:14:00 Test Item Value Reference Range Interpretation [...] mechanical heart valves.CBC W/PLT COUNT & AUTO [id number] 21:08:00 Test Item Value Reference Range Interpretation [...] (test code = No acid fast bacilli 25382-7) seen [facility] CenterAFB CULTURE + SMEAR (NON-SPUTUM)2019-05-26 15:52:00 Test Item [...] code = 994) seen FUNGUS CULTURE + [id number] 16:19:00 Test Item Value Reference Range Interpretation Comments CULTURE (BEAKER) (test No fungus isolated in code = 1095) 28 days FUNGUS SMEAR (BEAKER) No fungi seen (test code = 1406) FUNGUS CULTURE + [id number] 16:19:00 Test Item Value Reference Range Interpretation Comments CULTURE (BEAKER) (test No fungus isolated in code = 1095) 28 days FUNGUS SMEAR (BEAKER) <1+ yeast (test code = 1406) FUNGUS CULTURE + [id number] 16:19:00 Test Item Value Reference Range Interpretation Comments CULTURE (BEAKER) (test No fungus isolated in code = 1095) 28 days FUNGUS SMEAR (BEAKER) <1+ yeast (test code = 1406) FUNGUS CULTURE + [id number] 16:19:00 Test Item Value Reference Range Interpretation Comments CULTURE (BEAKER) (test No fungus isolated in code = 1095) 28 days FUNGUS SMEAR (BEAKER) No fungi seen (test code = 1406) FUNGUS CULTURE + [id number] 16:19:00 Test Item Value Reference Range Interpretation Comments CULTURE (BEAKER) (test No fungus isolated in code = 1095) 28 days FUNGUS SMEAR (BEAKER) <1+ yeast (test code = 1406) RAD, CHEST, 2 [id number] 08:51:00Reason for Exam:->PLEURAL EFFUSIONFINAL REPORT EXAMINATION: PA [...] Hua Verified Date/Time: 05/09/2019 08:51:36 Reading Location: [facility] Reading Room [address] [place] [address] XR chest 2 [id number] 08:51:00Interface, External Ris In - 05/09/2019 8:53 [...] Hua Verified Date/Time: 05/09/2019 08:51:36 Reading Location: [facility] Reading Room [address] [place] [address] [facility] (NON-SPUTUM)2019-05-06 22:55:00 Test [...] code = 994) seen Fungus culture + [id number] 17:35:00 Test Item Value Reference Range Interpretation Comments Result (test code = <1+ Ana A 6463-4) albicans Fungus Smear (test code = No fungi seen 1406) Lab Interpretation (test Abnormal code = 15524-5) [facility] CenterFUNGUS CULTURE + [id number] 17:35:00 Test Item Value Reference Range Interpretation Comments CULTURE (BEAKER) A <1+ Ana albicans (test code = 1095) FUNGUS SMEAR No fungi seen (BEAKER) (test code = 1406) RAD, CHEST, 1 VIEW, NON [id number] 08:25:00Reason for exam:->s/p R VATSShould this be [...] MDReport Verified Date/Time: 04/25/2019 08:25:05 Reading Location: [facility] Radiology Reading Room CBC W/PLT COUNT & AUTO [id number] 07:17:00 Test Item Value Reference Range Interpretation [...] 0-1 PERCENT (BEAKER) (test code = 2801) [id number] 06:30:00 Test Item Value Reference Range Interpretation Comments PHOSPHORUS (BEAKER) (test code = 2.6 mg/dL 2.3-4.7 604) Pulpit Operator ID - EMILIE [id number] 06:30:00 Test Item Value Reference Range Interpretation Comments MAGNESIUM (BEAKER) (test code = 1.7 mg/dL 1.6-2.6 627) Pulpit Operator ID - EMILIE LBASIC METABOLIC [id number] 06:30:00 Test Item Value Reference Range Interpretation [...] S NOT APPLICABLE FOR DIALYSIS PATIEN TS. Pulpit Operator ID - PIBECKY LRAD, CHEST, 1 VIEW, NON [id number] 09:38:00Reason for exam:->s/p R VATSShould this be [...] MDReport Verified Date/Time: 04/24/2019 09:38:07 Reading Location: [facility] Radiology Reading Room BASIC METABOLIC [id number] 06:26:00 Test Item Value Reference Range Interpretation [...] S NOT APPLICABLE FOR DIALYSIS PATIEN TS. Pulpit Operator ID - EMILIE LSpecimen slightly [id number] 06:19:00 Test Item Value Reference Range Interpretation Comments PHOSPHORUS (BEAKER) (test code = 3.3 mg/dL 2.3-4.7 604) Pulpit Operator ID - EMILIE [id number] 06:19:00 Test Item Value Reference Range Interpretation Comments MAGNESIUM (BEAKER) (test code = 1.8 mg/dL 1.6-2.6 627) Pulpit Operator ID - EMILIE LCBC W/PLT COUNT & AUTO [id number] 04:39:00 Test Item Value Reference Range Interpretation [...] FL, ESOPH, SWALLOW FUNCTION, WITH CINE OR [id number] 14:55:00Reason for exam:->dysphagiaFINAL REPORT Modified barium swallow [...] Moncada Verified Date/Time: 04/23/2019 14:55:57 [address] Location[address] , CHEST, 1 VIEW, NON [id number] 14:41:00Reason for exam:->s/p ct removalShould this be [...] MDReport Verified Date/Time: 04/23/2019 14:41:23 Reading Location: [facility] Radiology Reading Room RAD, CHEST, 1 VIEW, NON [id number] 09:12:00Reason for exam:->s/p R VATSShould this be [...] Signed: JR Marek, Christie Sanz Verified Date/Time: 04/23/2019 09:12:53 Reading Location: [facility] Radiology Reading Room BASIC METABOLIC [id number] 05:25:00 Test Item Value Reference Range Interpretation [...] S NOT APPLICABLE FOR DIALYSIS PATIEN TS. Pulpit Operator ID - ELISSA [id number] 05:24:00 Test Item Value Reference Range Interpretation Comments Prealbumin (test code = 7 mg/dL 14-45 L 70649-2) DORI (test code = DORI) Pulpit Operator ID - ELISSA M Lab Interpretation (test Abnormal code = 31116-2) [facility] CenterPREALBUMIN2020-02-26 05:24:00 Test Item Value Reference Range Interpretation Comments PREALBUMIN (BEAKER) (test code = 586) 7 mg/dL 14-45 L Pulpit Operator ID - ELISSA [id number] 05:23:00 Test Item Value Reference Range Interpretation Comments PHOSPHORUS (BEAKER) (test code = 2.8 mg/dL 2.3-4.7 604) Pulpit Operator ID - ELISSA [id number] 05:23:00 Test Item Value Reference Range Interpretation Comments MAGNESIUM (BEAKER) (test code = 1.9 mg/dL 1.6-2.6 627) Pulpit Operator ID - ELISSA MCBC W/PLT COUNT & AUTO [id number] 04:58:00 Test Item Value Reference Range Interpretation [...] = 2801) RAD, CHEST, 1 VIEW, NON [id number] 10:13:00Reason for exam:->s/p R VATSShould this be [...] MDReport Verified Date/Time: 04/22/2019 10:13:43 Reading Location: [facility] Radiology Reading Room 10:13 AMBASIC METABOLIC [id number] 04:59:00 Test Item Value Reference Range Interpretation [...] S NOT APPLICABLE FOR DIALYSIS PATIEN TS. Pulpit Operator ID - ELISSA [id number] 04:57:00 Test Item Value Reference Range Interpretation Comments PHOSPHORUS (BEAKER) (test code = 2.7 mg/dL 2.3-4.7 604) Pulpit Operator ID - ELISSA [id number] 04:57:00 Test Item Value Reference Range Interpretation Comments MAGNESIUM (BEAKER) (test code = 1.9 mg/dL 1.6-2.6 627) Pulpit Operator ID - ELISSA MCBC W/PLT COUNT & AUTO [id number] 03:33:00 Test Item Value Reference Range Interpretation [...] PERCENT (BEAKER) (test code = 2801) Anaerobic [id number] 17:25:00 Test Item Value Reference Range Interpretation Comments Result (test code = No anaerobes isolated 6463-4) [facility] [id number] 17:25:00 Test Item Value Reference Range Interpretation Comments CULTURE (BEAKER) (test No anaerobes isolated code = 1095) ANAEROBIC [id number] 17:24:00 Test Item Value Reference Range Interpretation Comments CULTURE (BEAKER) (test No anaerobes isolated code = 1095) ANAEROBIC [id number] 17:24:00 Test Item Value Reference Range Interpretation Comments CULTURE (BEAKER) (test No anaerobes isolated code = 1095) ANAEROBIC [id number] 17:23:00 Test Item Value Reference Range Interpretation Comments CULTURE (BEAKER) (test No anaerobes isolated code = 1095) ANAEROBIC [id number] 17:23:00 Test Item Value Reference Range Interpretation Comments CULTURE (BEAKER) (test No anaerobes isolated code = 1095) BASIC METABOLIC [id number] 12:47:00 Test Item Value Reference Range Interpretation [...] S NOT APPLICABLE FOR DIALYSIS PATIEN TS. Pulpit Operator ID Sultana SCOTT [id number] 12:46:00 Test Item Value Reference Range Interpretation Comments MAGNESIUM (BEAKER) 2.2 mg/dL 1.6-2.6 Specimen slightly (test code = 627) hemolyzed Pulpit Operator ANGELI SCOTT FBASIC METABOLIC [id number] 05:36:00 Test Item Value Reference Range Interpretation [...] S NOT APPLICABLE FOR DIALYSIS PATIEN TS. Pulpit Operator ID - SANDRA [id number] 05:32:00 Test Item Value Reference Range Interpretation Comments PHOSPHORUS (BEAKER) (test code = 3.4 mg/dL 2.3-4.7 604) Pulpit Operator ID - SANDRA [id number] 05:32:00 Test Item Value Reference Range Interpretation Comments MAGNESIUM (BEAKER) (test code = 2.0 mg/dL 1.6-2.6 627) Pulpit Operator ID - SANDRA WCBC W/PLT COUNT & AUTO [id number] 05:07:00 Test Item Value Reference Range Interpretation [...] = 2801) RAD, CHEST, 1 VIEW, NON [id number] 04:30:00Reason for exam:->s/p R VATSShould this be [...] Stable surgical changes.Additional findings: None. Signed:Tomasa Luque MDRepresearch psychiatric center Verified Date/Time: 04/21/2019 04:30:21 BASIC METABOLIC [id number] 16:21:00 Test Item Value Reference Range Interpretation [...] S NOT APPLICABLE FOR DIALYSIS PATIEN TS. Pulpit Operator ID - SONIA [id number] 15:52:00 Test Item Value Reference Range Interpretation Comments PHOSPHORUS (BEAKER) (test code = 2.7 mg/dL 2.3-4.7 604) Pulpit Operator ID Sultana SONIA [id number] 15:52:00 Test Item Value Reference Range Interpretation Comments MAGNESIUM (BEAKER) (test code = 2.0 mg/dL 1.6-2.6 627) Pulpit Operator ID Sultana SONIA FCBC W/PLT COUNT & AUTO [id number] 15:27:00 Test Item Value Reference Range Interpretation [...] PERCENT (BEAKER) (test code = 2801) POCT-GLUCOSE [id number] 12:28:00 Test Item Value Reference Range Interpretation Comments POC-GLUCOSE METER 104 mg/dL 70-110 : [facility]ED [facility] T [facility] 6720 (BEAKER) (test code = ILDA Calvert [facility], 1538) [address]: Pulpit Operator/Techni aaron ID = [id number] for JON ARCEO RAD, CHEST, 1 VIEW, NON [id number] 08:05:00Reason for exam:->s/p R VATSShould this be [...] Stable contours. Additional findings: None. Signed: Yonathan Garciaeport Verified Date/Time: 04/20/2019 08:05:30 Reading Location: [facility] C013V Neuro Reading Room BASIC METABOLIC PANEL [...] S NOT APPLICABLE FOR DIALYSIS PATIEN TS. Pulpit Operator ID - [id number] 04:57:00 Test Item Value Reference Range Interpretation Comments PHOSPHORUS (BEAKER) (test code = 3.9 mg/dL 2.3-4.7 604) Pulpit Operator ID - [id number] 04:57:00 Test Item Value Reference Range Interpretation Comments MAGNESIUM (BEAKER) (test code = 2.2 mg/dL 1.6-2.6 627) Pulpit Operator ID - DBCBC W/PLT COUNT & AUTO [id number] 03:45:00 Test Item Value Reference Range Interpretation [...] PERCENT (BEAKER) (test code = 2801) POCT-GLUCOSE [id number] 00:19:00 Test Item Value Reference Range Interpretation Comments POC-GLUCOSE METER 115 mg/dL 70-110 H : TESTED A T [facility] 6720 (BEAKER) (test code = ILDA UMANA, 1538) [address]: Pulpit Operator/Techni aaron ID = [id number] for [place] MS, SENORA FUNGUS CULTURE + [id number] 18:47:00 Test Item Value Reference Range Interpretation Comments CULTURE (BEAKER) (test No fungus isolated in code = 1095) 28 days FUNGUS SMEAR (BEAKER) No fungi seen (test code = 1406) FUNGUS CULTURE + [id number] 18:47:00 Test Item Value Reference Range Interpretation Comments CULTURE (BEAKER) (test No fungus isolated in code = 1095) 28 days FUNGUS SMEAR (BEAKER) No fungi seen (test code = 1406) FUNGUS CULTURE + [id number] 18:35:00 Test Item Value Reference Range Interpretation Comments CULTURE (BEAKER) (test No fungus isolated in code = 1095) 28 days FUNGUS SMEAR (BEAKER) No fungi seen (test code = 1406) [id number] 18:02:00 Test Item Value Reference Range Interpretation Comments PHOSPHORUS (BEAKER) (test code = 1.3 mg/dL 2.3-4.7 LL 604) Pulpit Operator ID Sultana SCOTT FBASIC METABOLIC [id number] 17:59:00 Test Item Value Reference Range Interpretation [...] S NOT APPLICABLE FOR DIALYSIS PATIEN TS. Pulpit Operator ID Sultana SCOTT [id number] 17:58:00 Test Item Value Reference Range Interpretation Comments MAGNESIUM (BEAKER) (test code = 2.1 mg/dL 1.6-2.6 627) Pulpit Operator ID Sultana SCOTT FCBC W/PLT COUNT & AUTO [id number] 17:41:00 Test Item Value Reference Range Interpretation [...] = 2801) RAD, CHEST, 1 VIEW, NON [id number] 09:28:00Reason for exam:->s/p R VATSShould this be [...] GarciaMDReport Verified Date/Time: 04/19/2019 09:28:51 Reading Location: [address] Neuro Reading Room BASIC METABOLIC [id number] 04:18:00 Test Item Value Reference Range Interpretation [...] S NOT APPLICABLE FOR DIALYSIS PATIEN TS. Pulpit Operator ID - ELISSA [id number] 04:16:00 Test Item Value Reference Range Interpretation Comments MAGNESIUM (BEAKER) 1.8 mg/dL 1.6-2.6 Specimen slightly (test code = 627) hemolyzed Pulpit Operator ID - ELISSA [id number] 04:16:00 Test Item Value Reference Range Interpretation Comments PHOSPHORUS (BEAKER) 1.9 mg/dL 2.3-4.7 L Specimen slightly (test code = 604) hemolyzed Pulpit Operator ID - ELISSA MCBC W/PLT COUNT & AUTO [id number] 03:48:00 Test Item Value Reference Range Interpretation [...] PERCENT (BEAKER) (test code = 2801) POCT-GLUCOSE [id number] 00:35:00 Test Item Value Reference Range Interpretation Comments POC-GLUCOSE METER 104 mg/dL 70-110 : [facility] 6720 (BEAKER) (test code = ILDA [place], 1538) [address]: Pulpit Operator/Techni aaron ID = [id number] for [place] NEEL PRESSLEY Prepare Leuko-Red [id number] 23:54:00 Test Item Value Reference Range Interpretation Comments CROSSMATCH (test code = 2264) COMPATIBLE Unit ABO (test code = A Neg [id number]) UNIT NUMBER (test code = [id number] 934-0) Status (test code = 1053443) [place]_TIMEINCHART Blood Bank Product (test code RED BLOOD CELLS = 2263) PRODUCT CODE (test code = M7742X19 933-2) [facility] METABOLIC [id number] 19:39:00 Test Item Value Reference Range Interpretation [...] S NOT APPLICABLE FOR DIALYSIS PATIEN TS. Pulpit Operator ID - [id number] 19:37:00 Test Item Value Reference Range Interpretation Comments PHOSPHORUS (BEAKER) (test code = 1.8 mg/dL 2.3-4.7 L 604) Pulpit Operator ID - [id number] 19:37:00 Test Item Value Reference Range Interpretation Comments MAGNESIUM (BEAKER) (test code = 1.8 mg/dL 1.6-2.6 627) Pulpit Operator ID - DBPOCT-GLUCOSE [id number] 18:39:00 Test Item Value Reference Range Interpretation Comments POC-GLUCOSE METER 115 mg/dL 70-110 H : Notified RN/MD: (MACYAKER) (test code = TESTED AT [facility] 4649 8298) [facility], [address]: Pulpit Operator/Techni aaron ID = [id number] for Si payton Renetta CBC W/PLT COUNT & AUTO [id number] 18:15:00 Test Item Value Reference Range Interpretation [...] = 2801) Surgically obtained culture + gram [id number] 16:40:00 Test Item Value Reference Range Interpretation Comments Result (test code = 6463-4) No growth Gram Stain Result (test No organisms seen code = 1123) [facility] [id number] 16:40:00 Test Item Value Reference Range Interpretation Comments CULTURE (BEAKER) (test code No growth = 1095) GRAM STAIN RESULT (BEAKER) 1+ WBCs (test code = 1123) GRAM STAIN RESULT (BEAKER) No organisms seen (test code = 50271) SURGICALLY OBTAINED CULTURE + GRAM [id number] 16:40:00 Test Item Value Reference Range Interpretation Comments CULTURE (BEAKER) (test code No growth = 1095) GRAM STAIN RESULT (BEAKER) 1+ WBCs (test code = 1123) GRAM STAIN RESULT (BEAKER) No organisms seen (test code = 74581) SURGICALLY OBTAINED CULTURE + GRAM [id number] 16:40:00 Test Item Value Reference Range Interpretation Comments CULTURE (BEAKER) (test code No growth = 1095) GRAM STAIN RESULT (BEAKER) 1+ WBCs (test code = 1123) GRAM STAIN RESULT (BEAKER) No organisms seen (test code = 66940) SURGICALLY OBTAINED CULTURE + GRAM [id number] 16:40:00 Test Item Value Reference Range Interpretation Comments CULTURE (BEAKER) (test code No growth = 1095) GRAM STAIN RESULT (BEAKER) 1+ WBCs (test code = 1123) GRAM STAIN RESULT (BEAKER) No organisms seen (test code = 66796) SURGICALLY OBTAINED CULTURE + GRAM [id number] 16:40:00 Test Item Value Reference Range Interpretation Comments CULTURE (BEAKER) (test code No growth = 1095) GRAM STAIN RESULT (BEAKER) 1+ WBCs (test code = 1123) GRAM STAIN RESULT (BEAKER) No organisms seen (test code = 62337) POCT-GLUCOSE [id number] 11:57:00 Test Item Value Reference Range Interpretation Comments POC-GLUCOSE METER 126 mg/dL 70-110 H : Notified RN/MD: (YELITZA) (test code = TESTED AT [facility] 6720 1538) [facility], [address]: Pulpit Operator/Techni aaron ID = [id number] for Si mmons, Renetta RAD, CHEST, 1 VIEW, NON [id number] 10:13:00Reason for exam:->s/p R VATSShould this be performed at the bedside?->YesFINAL REPORT CLINICAL HISTORY: s/p R VATS TECHNIQUE: 1 view of the chest. [facility] IMPRESSION: The ETT and three right-sided chest tubes appear unchanged position. There is no pneumothorax. Right hemithorax pleural- parenchymal opacity is unchanged. Left lung base opacity and a small left pleural effusion are also unchanged. The cardiomediastinal silhouette is magnif ied by technique with sternotomy wires. Signed: Jenny Rosado MDReport Verified Date/Time: 04/18/2019 10:13:43 Reading Location: [facility] Radiology Reading Room POCT-GLUCOSE [id number] 06:07:00 Test Item Value Reference Range Interpretation Comments POC-GLUCOSE METER 136 mg/dL 70-110 H : TESTED A T [facility] 6720 (BEAKER) (test code = [place], 1538) [address]: Pulpit Operator/Techni aaron ID = [id number] for Ed wards, [place] BASIC METABOLIC [id number] 03:23:00 Test Item Value Reference Range Interpretation [...] S NOT APPLICABLE FOR DIALYSIS PATIEN TS. Pulpit Operator ID - ELISSA [id number] 03:09:00 Test Item Value Reference Range Interpretation Comments PHOSPHORUS (BEAKER) (test code = 2.9 mg/dL 2.3-4.7 604) Pulpit Operator ID - ELISSA [id number] 03:09:00 Test Item Value Reference Range Interpretation Comments MAGNESIUM (BEAKER) (test code = 2.0 mg/dL 1.6-2.6 627) Pulpit Operator ID - ELISSA MBLOOD GAS, [id number] 02:53:00 Test Item Value Reference Range Interpretation [...] 40.0 % CBC W/PLT COUNT & AUTO [id number] 02:51:00 Test Item Value Reference Range Interpretation [...] PERCENT (BEAKER) (test code = 2801) POCT-GLUCOSE [id number] 00:31:00 Test Item Value Reference Range Interpretation Comments POC-GLUCOSE METER 121 mg/dL 70-110 H : TESTED A T [facility] 6720 (BEAKER) (test code = [facility], 1538) [address]: Pulpit Operator/Techni aaron ID = [id number] for NAYELY FRAIRE POCT-GLUCOSE [id number] 18:46:00 Test Item Value Reference Range Interpretation Comments POC-GLUCOSE METER 114 mg/dL 70-110 H : TESTED A T [facility] 6720 (BEAKER) (test code = [facility], 153) [address]: Pulpit Operator/Techni aaron ID = [id number] for ALAN BONILLA LIZETTE BASIC METABOLIC [id number] 17:17:00 Test Item Value Reference Range Interpretation [...] S NOT APPLICABLE FOR DIALYSIS PATIEN TS. Pulpit Operator ID - BSSpecimen slightly [id number] 17:14:00 Test Item Value Reference Range Interpretation Comments PHOSPHORUS (BEAKER) (test code = 4.2 mg/dL 2.3-4.7 604) Pulpit Operator ID - FRNNQYFYPYP9576-03-24 17:14:00 Test Item Value Reference Range Interpretation Comments MAGNESIUM (BEAKER) (test code = 2.1 mg/dL 1.6-2.6 627) Pulpit Operator ID - BSCBC W/PLT COUNT & AUTO [id number] 16:29:00 Test Item Value Reference Range Interpretation [...] (BEAKER) (test code = 2801) BLOOD GAS, [id number] 16:23:00 Test Item Value Reference Range Interpretation [...] (test code = 1819) 40.0 % POCT-GLUCOSE [id number] 13:26:00 Test Item Value Reference Range Interpretation Comments POC-GLUCOSE METER 94 mg/dL 70-110 : TESTED A T [facility] 6720 (BEAKER) (test code = [place], 1538) [address]: Pulpit Operator/Techni aaron ID = [id number] for RICARDO I, DARIUSA Bronchial culture + gram [id number] 11:54:00 Test Item Value Reference Range Interpretation Comments Result (test code = 6463-4) No growth Gram Stain Result (test No organisms seen code = 1123) [facility] [id number] 11:54:00 Test Item Value Reference Range Interpretation Comments CULTURE (BEAKER) (test code No growth = 1095) GRAM STAIN RESULT (BEAKER) 1+ WBCs (test code = 1123) GRAM STAIN RESULT (BEAKER) No organisms seen (test code = 44315) Tissue [id number] 11:43:00 Test Item Value Reference Range Interpretation Comments Case Report (test code Surgical Pathology = 104) Report Case: [id number] Authorizing Provider: Fernando Andrews MD Collected: 04/14/2019 1654 Ordering Location: [facility] Received: 04/15/2019 0933 PERIOPERATIVE SERVICES Pathologist: Gay Puentes MD Specimens: A) - Pleura, PARIETAL PLEURA B) - Lung, Right Lower Lobe, Right lower lobe C) - Lung, Right Middle Lobe, Right middle lobe D) - Lung, Right Upper Lobe, Right upper lobe DIAGNOSIS (test code = h7ymqEEvXVNqy0bzIQKvrSB 3220) uZzEwMzNcZnRuYmpcdWMxIH xnrxJuXXebg9UpB0LxZdMcR FxhbnNpXGRlZmxhbmcxMDMz GVK9rvEeOWMuDPfdYCOfGVk eUr6lvPMxcRosUeDcDPZfp5 nmyqNPrnwctNu2w1vxWWWgQ wJ9xVOiWTuyA0vishDiqLPr CCJgPQi7yZjyHcLdHFQoi99 hbiBcZmNoYXJzZXQwIEFyaW IuM969m6asm3gnxfNjxOR9P AYjAAT9OYxegmEewdS1XJbj aEHrCxF5XFguitDqJSThK4T jVE8qXUwzmAWaARSrE7hbFA GtXDivDGAeANccyKUbKQL6k Jktv7J9fRGxhFRqcKxwFvXx MjHeUXROc9CjJIh7vHnzV7Y hKCIyTxL0wIEiAOHjBQaxEV PyKPWoozM6lF74DUfjzsM5y IUpn0Ead58ba318oB3siCYm RNX0YOMoOIAkuXOtJKYqMRE 2ABYdoYEiC8q5DrYoiACjV4 C4YhDblAVeI3E3DhXrxBQaG 7U1KdEdkCRpXGKwiPKlIg4v yNQovPOkis7szi13VHR9o3V qhAfeVAM9TCB6UsDlOo5lvY TyLGTbED4vFbXekVYpICXew t28oCblNDliptKphP5eXmVc OY4brGirm38jHZGgEW6spA2 aoi9attSsUWsezDLtbMS0zc deDET5QSZsciNny0Jvo6ewX iOhgnQyN7djA2RnLYBoOYBj LDGmMoLmrgVzo3Xhz1GelSQ bhXf0m4alBKWfFIWfuZawg9 ayCOS9HIJkK1H1oZLoq2wvA ZcnPYFemIR7ytdlBDlmQFUp zrH2ipiiRMrhOSNgkAU9cuk yHBbuIHBnBkP7smxzDBykUP RlBFG9NHvzr631UIL1BJksL mtwYWdlXHBnbmNvbnRccGdu ZGVjXHBsYWluXHBsYWluXGY wSTUxVkFywFiwpEsvcM5yKh SjRpSdEQfuGV8bUAGxW2nlx NRfCAPqBOTeB1poIbQijG7g aFxmMVxmczIwXHBhciBBLiB SAUIZYgOoXUYTE8sFITCYMS JJRVRBTCBQTEVVUkEsIERFQ 60ELBlTWOQKM008BPPntpQp ICAgLSBDSFJPTklDIEZJQlJ IE2wVZqHDOGGNWtaPMXSlPM BhciAgICAgLSBORUdBVElWR DMVD1QrXJNFFSlLST3INMln YXJccGFyIEIuIExVTkcsIFJ CS8mHKDiMA4BXMOsSNqCpXQ ZZG12PFDjPQIOLM792BGDuy iAgICAgLSBDSFJPTklDIEZJ YwAEK4gIXjFLRXSDStxYKKQ pG5qJGDDWB3IZGDTNY5SGJG DPTlVLIW3KIOIQC53bGOLgi wEhMNIsSNRYAA4EWQYUCrTY N5bGKJRhC1hILGBKCQAWCTS SIjORDdZDWynYJofaFI3PLM FDIISRH27BEP0rbWRjRUSsR IGaVG2OY6ELWBFVWFNYVkSC UEsWF88MGjMJQRJgqinmRSN cBk4vBGFMDeqqCphJXBUrVY sSLZuNKDaNDrPfHCLUI73BP MeDCOJNO061JMGnvcSuMADw NNANILSXGuwYXVAURvVBW5r ORyBQTEVVUklUSVMuXHBhci AgICAgLSBORUdBVElWRSBGT 4RpQDBQMDiGFL6UBO5vtDQv XHBhclxwYXJkXHBsYWluXGY sSESqDzAviAlvwJ9eFuGwTy VmZGxqDN7qMUZqM0gawPWkF OYpMPMiV8lpKqXiiL9nxLaj MVxmczIwIEQuIExVTkcsIFJ QL4oNUTNQQJENCMkYLuUaKA WCK90ETBzYPVHFP196DOLpi lxxbFxwbGFpblxmMFxmczI0 XHBsYWluXGYxXGZzMjBcbGF uZzEwMzNcaGljaFxmMVxkYm LjNPLiUDnzB1adFyEqKtFkV CAgICAgLSBDSFJPTklDIEZJ JuPAO4bDKwNLFCQYLxjETWV uXHBhciAgICAgLSBORUdBVE fKVLHSW5PsVYVNQDnSPG0BF P4rlBIcDZMiBBNnKNnLYwuh XQUHVI9SPZhKKUQZHQQBNZm wbGFpblxmMlxmczIwXGxhbm gdKROvEZiqP2rbVbRcXPNui XnlRjxqe6IsUGTjCOJuPstp zkOjCUy9maVzTY6YIFZRG27 JXxyORO4NKRMKCKtQB3ZGEE MgQUxURVJBVElPTlxwbGFpb lxmMVxmczIwXGxhbmcxMDMz FRasH5alFqUnTHGmpIezEDq qu2ZyWUDaSFFeLvtpunYqYT 6vjVsflQ6mDyXpPmKhUOdbL H0yHFBiK3iilPQyWEExQWKo A5ybRmDczT0hpGycPEvrrzW nLTXwegrvCFN1d1nobEWkOQ NzdGUxODAwMFxhbnNpXGRlZ xeljmnxVDXqVEA4brWiEITn WTnqFKAbGEbyOx0egVJtkJc jKzOdLEOym2keyjDWawxfcR y5s2rrUCDoMyM8aBJhDLxdI 5uefqJqgIIeJSEjXMj5yI16 RKRdbY8ibLEzPJwybpKiCeG 2OEpvHEAfNjB6FNVfuXWoXX DgR2lfUHBhSZwaESMcFEemy CYvWHM4lJyeg5Q4aIRayCUm bGzuPcOcMnWbFkTTt8IwUFh 6oKjpZ5ZpBWYqTpE9xUNlRJ BoYKanLHWeSRLvugH7tZ58X DefnfJ5hWCja0Nrx90en715 rW4dhIGuSNJ5HAYfHDEpoVW vIHMqHKQ7QOQhjPJjT3dfSK BgBP0ltlojHTuhDMfoHKMnw HT3MNZjsQUrE2NdFMQqJCtg QCBvwpc8JyCxJs5zoRUouLw zTOxog1twd9bteXMnAxm9JN XqYkXwTciwMOizb4Mqa4vzE UFfmw8bCRH9zSPmwDrtc4T5 sGIyPMZjjZTpPTPlIC2tkDV sFQUlsQ2tvmmiZLFeFcJlbo qvVXXvvTobzrAnKl5dpNqxF HJ5TLksP0wfmX9mUaW8EMra T7epcA4uYJc2TDhhLHUpoJT 3cgT0HFIcsNDnR6WvzS6pDU IzUD9porw1z1urBER5EZzoX UVqRfL3wqG4BAVuxNXhWFJh fCyrMAgit372DDQ5BsPtFUX nz4JqM3KskQpdA80mgUheG8 4iXUFxjIqunO8deBfhuN7bT nDwZfMvBWllfTxzIM9gJSGk I0ysmYVhTUFnVBNkP5huFmK keZ6yrWjnKPlthiMvQZLiPn u9FSVkpFNwAXVcIue2IXFsN HGeO34puaydURQ9vC7dx4zl s0ZhNZbwVRH5KLAes99fRRi frwK4EKinVy24IBtzDZX7FD ddYYQ2aB== CPT Code(s) (test code c5puyULiFDVutYOfWtCzFVK = 3357) gGUJny8cxKGBmtYUrHhJvJm NcZnRuYmpcdWMxXGRlZmYwe 9ixv602sEAao4wbJQItCvW1 sEAgBNLclHFgI756k9owk7t rkeIrkCB1DHRgEYS4FLficy JiffP3JJmevHUlXxS7BFhqs mXmKNrxowJylpVyDvr8FKWe U621WXV9uQbmw3lxBCE6DQY nEGDuTwSkRo6nhAErW775FK VdLJZAOKPftGq3LRHupzAve rTabJRJc104L215k0njTFKb dtMudPwJbjsss0xwT142PKT hcGVydzEyMjQwXHBhcGVyaD U9ANPzIN7mnufmDcSeCG8hr djuMbWtRB1sfog3ByJsQE4w cmdiNzIwXGhlYWRlcnkwXGZ qh1UghkayLU1lJ1Mrp7S6vB 9maXRcZGVmdGFiNzIwXGZvc m7aqJIuJWigv3XmDJH6msE4 rKNrxFDmYAUvKY26Qkzvl6S hXtjoGMF3ZZVmzvMoy2Ccx4 vdQsUjpmHmW5syL2RaMPUlC FUwWSGwFcUmdyHjj5Qyq3Sj uQXqrTg1c5miZMFnVVTurHd jd5grLPO2CFMxJ5P6tCTij3 eqEFtcHKQknYP6syzuDYqvI GWxxxV3qjosINqmXFSjdTE8 qoqiSTmaXKXwHwG3uacrFCh mZPIrYMW8ZGagg599JXX8ND xzYmtwYWdlXHBnbmNvbnRcc GduZGVjXHBsYWluXHBsYWlu XGYwXGZzMjRccWxccGxhaW5 bLnSuBcBkOOeyUQ4mZNGzT4 qraXSrAYVoJDJiH0bcGiLig P0jdAyvAMwasyXfJIx1ErO8 IFggNFxwYXJ9 CLINICAL HISTORY (test r9akdJEuBMAuhPUzZqHyIGJ code = 3356) xTSQbk0xhIWChtMZjEfTiFl NcZnRuYmpcdWMxXGRlZmYwe 7trv206tZCnj1yqNDGmHgV8 bGFgXCIqjGLcY290h4tuo1w mkxHneDF3FODsCCL9YYnuhp RczaR2CRmyqIAgGuH0EFxdi gTeHCnobvSapkLaRny3IITu A692SIF9uBpcc6hpBYJ5JKP oZSSeHuVaPb7oqFOvS786ID JuUGVUYJIbyKo3XFTzpaXsc fWulYOOs391P833d8bhDTKf ojGbsHxTcrapg2xyF654BDK hcGVydzEyMjQwXHBhcGVyaD K0LGFqNE2zlzvjGhAwOF2ls qsmJfWsRY9ncqq4RoSuNO4p cmdiNzIwXGhlYWRlcnkwXGZ el5EvhotlHS5eS6Ygp1K7aP 9maXRcZGVmdGFiNzIwXGZvc o2ttTPjKLosw9FnAPM8lvI0 iMMrjYSyWXWdLQ93Etefx8V iLdegANA8VZOqqkGnr9Jxr8 rmBqZsmiOdN0phB6RtCAMlH ADdTIZiPuSmrjSck2Qbt2Fj lULrgEy7u4ctLHTmZJEmkGm wd4zrQFN7PMKqY6R2oWQwo2 pjIOwrPYUqqLI7mjfhMAoaG YJmcyK4asqsHNhcKKRkfQX8 pktjWDljYRAkDgN1fvbpZDk uSFOeUCU8OSive050CGK6MY xzYmtwYWdlXHBnbmNvbnRcc GduZGVjXHBsYWluXHBsYWlu XGYwXGZzMjRccWxccGxhaW5 aFkBdNxTySVnyCM4tVTPqX6 zolZXlXQXuVHVlM9jvToNir L8kvPixSRynbhOeZPBozEeh mYGxTTPjJ6x5HkamZKU5 SPECIMEN SOURCE (test v8cphJFzFRXbyNQjCwTgYOH code = 3377) yHVBti5slIJMdzYInAiQkBx NcZnRuYmpcdWMxXGRlZmYwe 7mjt670sAQoz2kcWURdOxS9 aJMpHNJwsSFaF633k5sfu3m ivyEhpTS9MTHtJRZ3FKxmvn VrmiN6OVaojMHtIbN0PUuis oXmKWhhueZenyOuIld1ZFWl Z638XRU2gLido5dmCHY5JGE lMXWaVoNuBi3kqWIuF949IE HuRDSFYQXxsFo1NTZeuzJpo gNdgMIFv768L615f4kiVUJq joJqtUdEsvqms2psU134DRH hcGVydzEyMjQwXHBhcGVyaD P7EEWlSP9hjlyoFqUkDX2fo cydBrErFP5pqyo6EuVnRD1t cmdiNzIwXGhlYWRlcnkwXGZ un9HhscdjLH6oX5Exp6B4qN 9maXRcZGVmdGFiNzIwXGZvc y8cgRPlXKywl1XcSMW4bgF9 qPGbfRGvGXWwHJ96Hypdv6B sNhlnYZU9XEDcqrLia8Bfr7 viHwFxtzLwA7usT2YxKEYmU DSuIBJrQtUxdqJhl1Swy6Ud zXJcuVk4t6uaXEBkRKSwzPo wn2bjNTM6GMGqV8A2lKBuw3 jtENywZRYmnEA2rrfnQRlmB MBfnqP7habkZBrfDKWcgNC6 zzpqHGlrXNPfZyD4fownGFi pIFEsXUR3AIoof839QIK1JW xzYmtwYWdlXHBnbmNvbnRcc GduZGVjXHBsYWluXHBsYWlu XGYwXGZzMjRccWxccGxhaW5 zXhWqTaAuKDaxNO9oKUYbE3 bhrAGrMCGaRQBiN1vfDdJqe E3szYvbLMyiksZfGDXgWGRh DBFnRZ4zXe3bYARcZibpjsj xwRMtbM93IRUzyQ6xIP9yBk 4gTHVuZywgcmlnaHQgbWlkZ UyuQWomVsXkOKJdDSe6rjoj DEFkT5g6IZEydUYrYQgyQmM gXHBhcn0= GROSS DESCRIPTION k6upzKUcGLEsxAWkZqSqSYV (test code = 3366) hHKTza6neVOCsiTPfYwJkDs NcZnRuYmpcdWMxXGRlZmYwe 8sps101sDTrv5zgTGVlCzI1 pOPhZIDvrTFoU882EBVdVGv ut4ufd2SlADWdeTQnp4D7CO REeuglvXs9xVxgS21ku3X1M duyI7atTABdRNBeW8NjAT9w LMGlKgt2YUZ0FCW3UXBcTNI xA8WiHN8iEOXosSSpIEz3m5 fnfRkuBEErTOV1n5bnLEypx eSiPG7ysm3ewZa5n6wbsjAv KDYqOJQtxBQGIQOoA2UzeCa dSs2dpAf4eYndNauoEJN9Te l6ZL5ftc51ppz3hXzhIDCaj dpvAiP9HJboYPXdycbuVDb8 MFxtYXJnbDcyMFxtYXJncjc yMFxtYXJndDcyMFxtYXJnYj upTOcuMPCyDNP5AXvpe051P KF6MJadz1gbu3gftAGzQoc4 ZLLuYeLlExldLLcxt6Xkt6x eWPTgsf9rOKL6jVAltOdjd4 S5iIXuMBJfnZPwdxNbQYFeX aB5NHbnKM9mjd02JULxPOU9 iz3ymXFlrUlobbDkpYOnEDc xR9CrCPPlm838WYVjI0SzBO Ekw6Y0haGaRzOjSUVqaXH0c tC7MEBiNEl1iZSoulS7ufTx rBXqY4jqeI33RyGofJXpZ9D mmO70PjUmdXIqU6CqoR76Ya SxmSAqX8FuuL35YoPqfMGeF BFetRZlWk8ukJParPKhh3Pf lMGdHLpoI26oy282VMWqtmO qH0scaKCilseoiSUfenwkFN vhteW3KGs8mwHtddntlTmhc GFpblxmMVxmczIwXGxhbmcx SSIjBOkiQ4qrMlYoNUYxwWx zLJigg9KcUJRpOGIiCgXcUN 5yAfKsIAt7ZQUmdB4lEa0re XWauH8puDVoDFiiABN7pHVa ZJWkBEGnNBHsIT27I7SybuJ hOWzzMVBcLNFftA1mDP88eD JlciBhbmQgInBhcmlldGFsI HBsZXVyYSIgaXMgYSAxLjUg eOEkWdzwzTGaYgKmA64jvZ9 cyIcpmbFoPmY8UO9ipBvgzb JjiRAro47dzITwOH4tzOYyd Xjky7AgOGO9pEdetGNeavUc swFfsnNugJNlwHXlyFW5YTB jyD1tORXeLOSvfvhaDWWkTd 4oBcYaLSa9ULTvwW3kUu3jd PWzaU5rvHIgDDgfTVJ2kENq YKOpRBGfDYNdZX52M0DmmdP qRNkcSCHsMEXneZ7qHR36gC EybuKyvbUtTgOkS3o1UJogy 5NnMXmvNkJaIQrwTBOzFL4n VUdlNu6sCAlsUB9tTRPbKVA dhnXxe21ql3VxeXQxBZFrto evQBWgK6MydSciyEBaq4Mbb GFnaWMsIGZpYnJvbWVtYnJh wl86poJ7hZEpbFFdXXmbxHF cYQuxPRRhjDcoOWr4DDV9Ko 1prSNmBBHoxyORJN6UTk1xN HBhclxwYXJccGFyZFxwbGFp ghtiOLjhmuJ5UJAtDSknCEY xXGZzMjBcbGFuZzEwMzNcaG ljaFxmMVxkYmNoXGYxXGxvY 2hcZjFcZnMyMCBDLiBSZWNl sDOdKULthvSwl4ZsPNtmttA sYWJlbGVkIHdpdGggdGhlIH ElzAzmrmAmqzRhUL4jZJUiI 9Ori3Sgm21iyqIdRlPgBHGp ZCAibHVuZywgcmlnaHQgbWl kZGxlIGxvYmUiIGlzIGEgMy 41ICfmNN11QUdtSS6xRPBgN OFlgfRir90ki2PniBEfDZDk rgyxTehsvz9yVK9jelAlu0I lRLFur3Q4KWjcu7ljD7tmvO WlZI22tMKtcSbbi6RpqPa1i GVkIGluIEMxLiBccGFyXHBh ciBELiBSZWNlaXZlZCBpbiB bi9DmRUfzaeGeNOWquOTpCR dpdGggdGhlIHBhdGllbnQnc bRlFX7uCANkX1Lvx2Yix16e bnVtYmVyIGFuZCAicmlnaHQ syOEkMQNfoA1nSPMivEUfFD AyLjMgeCAwLjcgeCAwLjIgY 31zzCYvBVHywbqtVxxlta0y TZ0vgvHkw1AtNIMjz9P6KOd nn2owN2jtjQMrMR70xLKksX cmr3QlqLo6jPHyIGnwNBQiI fKPWT8ycnZbiXXijZ== MICROSCOPIC v9yhvBOjQCArfCMoJvSrQRP DESCRIPTION (test code nTPGgl5arNRSfwWMiAsGqXy = 3371) NcZnRuYmpcdWMxXGRlZmYwe 8vxk262kSAmk8rvOXCpKfI2 nUVdQFDspBRbK951r7ynl1k stdQcgOQ8NLKtPMO1DIshqw DjqdY4RSdaeQOvUtF6OXqig yBvRErewsEcbdRhHyk7CHKt J122FYH7qWqjo4ukMCA5NGB rNVVcVpSlAb3frQKqB738WV NvFDTMLZPglBy6ERIohfZnx jLfkLGOi365D296n6egEIQb muJgbMqFqditj9hhK959FRK hcGVydzEyMjQwXHBhcGVyaD K3BNNdSG6wxvstBzQjDF0ng xucBpMyIB1yltl7KbOoYW2i cmdiNzIwXGhlYWRlcnkwXGZ qz8PfzmdgFI1iR8Roh4V5rM 9maXRcZGVmdGFiNzIwXGZvc b0xxKObIVocy5CzNLF1daX4 iJEkbBJwOYRwMM72Kvzst3T oJdfsDWL3MXUoqaZuq7Ksv6 wlNoTeavZsV2mpR0DbHRJfS NQgQHUuYzLqlpOsg4Oks6Ht nOXxzUs0m2ecSAYjCXJnrAl jq5zzIVQ9MTQwG7H8jIGke1 dhBGarJJDnvDQ5kwrcPGooZ WTvusD2wvtxMYfaLDFxjJI8 xjjpXMwqKSWlTsZ4ncltNJb cYFQmUTT4IMxfr985GIL7TV xzYmtwYWdlXHBnbmNvbnRcc GduZGVjXHBsYWluXHBsYWlu XGYwXGZzMjRccWxccGxhaW5 mFlDgDqQvLXiwSL9mRHRtX3 sjxXBrYGJhTUUcR3viGcImh J4ibAhgGOufwdZgKQCmxpQh le7rNY3zqLXbiQ== Gross assessment was [facility] performed at ([facility], code = 2777) Department of Pathology, [address] [place] [address], Technical component [facility] was performed at ([facility], code = 2778) Department of Pathology, [address] [place] [id number], Professional component [facility] was performed at ([facility], code = 2779) Department of Pathology, [address] [place] [address], [facility] CenterT[facility] [id number] 11:43:00Surgical Pathology Report Case: [id number] Authorizing Provider: Fernando Andrews MD Collected: 04/14/2019 1654 Ordering Location: [facility] Received: 04/15/2019 0942 PERIOPERATIVE SERVICES Pathologist: Gay Puentes MD Specimens: [...] DIAGNOSTIC ALTERATION. Signing Pathologist Direct Phone Line: [phone], right.A. Pleura. B. Lung, right [...] tissue, which is entirely submitted in D1. PA/ewPerformed.[facility], Department of Pathology, [address] [place] [address], [facility], Department of Pathology, [address] [place] [address], [facility], Department of Pathology, [address] [place] [address], BYV, CHEST, 1 VIEW, NON [id number] 10:13:00Reason for exam:->s/p R VATSShould this be [...] MDReport Verified Date/Time: 04/17/2019 10:13:50 Reading Location: [facility] Radiology Reading Room POCT- GLUCOSE [id number] 05:44:00 Test Item Value Reference Range Interpretation Comments POC-GLUCOSE METER 99 mg/dL 70-110 : TESTED A T [facility] 6720 (BEAKER) (test code = IL[place], 1538) [address]: Pulpit Operator/Techni aaron ID = [id number] for CLARKE RILEY BASIC METABOLIC [id number] 04:57:00 Test Item Value Reference Range Interpretation [...] S NOT APPLICABLE FOR DIALYSIS PATIEN TS. Pulpit Operator ID - [id number] 04:36:00 Test Item Value Reference Range Interpretation Comments PHOSPHORUS (BEAKER) (test code = 3.8 mg/dL 2.3-4.7 604) Pulpit Operator ID - [id number] 04:36:00 Test Item Value Reference Range Interpretation Comments MAGNESIUM (BEAKER) (test code = 2.3 mg/dL 1.6-2.6 627) Pulpit Operator ID - [id number] 04:08:00 Test Item Value Reference Range Interpretation Comments PTT (test code = 00745-3) 41.6 22.5- 36.0 seconds H Lab Interpretation (test code = Abnormal 41409-7) [facility] CenterAPTT2020-02-[facility] 04:08:00 Test Item Value Reference Range Interpretation Comments PARTIAL THROMBOPLASTIN TIME 41.6 seconds 22.5-36.0 H (BEAKER) (test code = 760) PROTHROMBIN TIME/[id number] 04:07:00 Test Item Value Reference Range Interpretation [...] for patients wiht mechanical heart valves.BLOOD GAS, [id number] 04:02:00 Test Item Value Reference Range Interpretation [...] 40.0 % CBC W/PLT COUNT & AUTO [id number] 03:56:00 Test Item Value Reference Range Interpretation [...] (BEAKER) (test code = 2801) Hemoglobin and [id number] 00:46:00 Test Item Value Reference Range Interpretation Comments Hemoglobin (test code = 7.7 13.7- 17.5 GM/DL L 786-4) Hematocrit (test code = 23.6 % 40.1-51 L 4544-3) DORI (test code = DORI) Pulpit Operator ID - [id number] Lab Interpretation (test Abnormal code = 24080-5) [facility] CenterHEMOGLOBIN AND [id number] 00:46:00 Test Item Value Reference Range Interpretation Comments HEMOGLOBIN (BEAKER) (test code = 7.7 GM/DL 13.7-17.5 L 410) HEMATOCRIT (BEAKER) (test code = 23.6 % 40.1-51.0 L 411) Pulpit Operator ID - [id number]-GLUCOSE [id number] 00:22:00 Test Item Value Reference Range Interpretation Comments POC-GLUCOSE METER 98 mg/dL 70-110 : TESTED A T [facility] 6720 (BEAKER) (test code = ILDA ROBL[place], 1538) [address]: Pulpit Operator/Techni aaron ID = [id number] for SANDRA FERNANDEZ Prepare [id number] 23:54:00 Test Item Value Reference Range Interpretation Comments Unit ABO (test code = A Pos 3911838) UNIT NUMBER (test code = [id number] 934-0) Status (test code = 4302944) TX_TIMEINCHART Blood Bank Product (test code CRYOPRECIPITATE = 2263) PRODUCT CODE (test code = T4234P41 933-2) [facility] Center[facility]are [id number] 23:54:00 Test Item Value Reference Range Interpretation Comments Unit ABO (test code = 0898162) A Pos UNIT NUMBER (test code = [id number] 934-0) Status (test code = 9919803) TX_TIMEINCHART Blood Bank Product (test code FFP = 2263) PRODUCT CODE (test code = P6138P08 933-2) [facility] CenterPOCT-GLUCOSE [id number] 19:03:00 Test Item Value Reference Range Interpretation Comments POC-GLUCOSE METER 93 mg/dL 70-110 : TESTED A T [facility] 6720 (BEAKER) (test code = ILDA [place] PR, 1538) [address]: Pulpit Operator/Techni aaron ID = [id number] for DRU MONTE BASIC METABOLIC [id number] 17:08:00 Test Item Value Reference Range Interpretation [...] S NOT APPLICABLE FOR DIALYSIS PATIEN TS. Pulpit Operator ID - [id number] 17:06:00 Test Item Value Reference Range Interpretation Comments PHOSPHORUS (BEAKER) 4.5 mg/dL 2.3-4.7 Specimen slightly (test code = 604) hemolyzed Pulpit Operator ID - BSCBC W/PLT COUNT & AUTO [id number] 16:39:00 Test Item Value Reference Range Interpretation [...] (BEAKER) (test code = 2801) BLOOD GAS, [id number] 16:16:00 Test Item Value Reference Range Interpretation [...] (test code = 1819) 40.0 % POCT-GLUCOSE [id number] 13:36:00 Test Item Value Reference Range Interpretation Comments POC-GLUCOSE METER 93 mg/dL 70-110 : TESTED A T [facility] 6720 (BEAKER) (test code = ILDA [place], 1538) [address]: Pulpit Operator/Techni aaron ID = [id number] for BLOU NT, MYLES Venous doppler arm, [id number] 10:57:26Ejection FractionSST. [facility] MKCKESSON CPACS Left Impression1. There [...] of Study 04/15/2019 Age 63 Visit Number [id number] Gender Male Accession Number [id number] Date of 1955 Referring Yonathan Najera Room Number 7A05 Physician Nawaf, TANIA Casting Room Helper Aidee Ruggiero, RVT Interpreting Asia Tapia, Physician [...] in cm/s ; Diameters are measured in [facility] HEMOGLOBIN AND [id number] 09:42:00 Test Item Value Reference Range Interpretation Comments HEMOGLOBIN (BEAKER) (test code = 8.0 GM/DL 13.7-17.5 L 410) HEMATOCRIT (BEAKER) (test code = 24.1 % 40.1-51.0 L 411) Pulpit Operator ID - [id number], CHEST, 1 VIEW, NON [id number] 06:37:00Reason for exam:->s/p R VATSShould this be performed at the bedside?->YesFINAL REPORT CLINICAL INDICATION: Postop Comparison: 04/15/2019 1353 hours The cardiomediastinal contours are stable. Central pulmonary vascular prominence and right greater thanleft parenchymal and pleural opacities are unchanged. There is no pneumothorax. Support lines are stable. Signed: Reji Tyler Verified Date/Time: 04/16/2019 06:37:16 Electronically sig lalita [...] S NOT APPLICABLE FOR DIALYSIS PATIEN TS. Pulpit Operator ID - DBSpecimen slightly [id number] 04:26:00 Test Item Value Reference Range Interpretation Comments PHOSPHORUS (BEAKER) (test code = 5.1 mg/dL 2.3-4.7 H 604) Pulpit Operator ID - [id number] 04:26:00 Test Item Value Reference Range Interpretation Comments MAGNESIUM (BEAKER) (test code = 2.2 mg/dL 1.6-2.6 627) Pulpit Operator ID - [id number] 04:09:00 Test Item Value Reference Range Interpretation Comments PARTIAL THROMBOPLASTIN TIME 35.4 seconds 22.5-36.0 (BEAKER) (test code = 760) PROTHROMBIN TIME/[id number] 04:08:00 Test Item Value Reference Range Interpretation [...] mechanical heart valves.CBC W/PLT COUNT & AUTO [id number] 03:57:00 Test Item Value Reference Range Interpretation [...] PERCENT (BEAKER) (test code = 2801) Calcium, [id number] 03:44:00 Test Item Value Reference Range Interpretation Comments Calcium, Ion (test code = 1993-) 1.09 mmol/L 1.12-1.27 L pH, Blood (test code = 81705-5) 7.44 Lab Interpretation (test code = Abnormal 28659-2) [facility] CenterCALCIUM, [id number] 03:44:00 Test Item Value Reference Range Interpretation Comments CALCIUM IONIZED (BEAKER) (test 1.09 mmol/L 1.12-1.27 L code = 698) PH, BLOOD (BEAKER) (test code = 7.44 1810) BLOOD GAS, [id number] 03:44:00 Test Item Value Reference Range Interpretation [...] (test code = 1819) 40.0 % POCT-GLUCOSE [id number] 23:26:00 Test Item Value Reference Range Interpretation Comments POC-GLUCOSE METER 117 mg/dL 70-110 H : TESTED A T [facility] 6720 (BEAKER) (test code = IL[place], 1538) [address]: Pulpit Operator/Techni araon ID = [id number] for [place] MS, SENORA CBC W/PLT COUNT & AUTO [id number] 23:13:00 Test Item Value Reference Range Interpretation [...] PERCENT (BEAKER) (test code = 2801) Central [id number] 17:48:17Enoch Chung NP 04/15/2019 5:50 PMCentral LineDate/Time: [...] called to verify the correct patient, procedure, equipment,senior support analyst and site/side marked as required.Indications: vascular accessPreparation: [...] NoneType of anesthesia: NoneGrafts or Implants: NoneCHI Huntington HospitalBASI METABOLIC [id number] 16:33:00 Test Item Value Reference Range Interpretation [...] S NOT APPLICABLE FOR DIALYSIS PATIEN TS. Pulpit Operator ID - JOSE [id number] 16:29:00 Test Item Value Reference Range Interpretation Comments PHOSPHORUS (BEAKER) (test code = 5.0 mg/dL 2.3-4.7 H 604) Pulpit Operator ID - JOSE EBLOOD GAS, [id number] 16:18:00 Test Item Value Reference Range Interpretation [...] 45.0 % CBC W/PLT COUNT & AUTO [id number] 16:17:00 Test Item Value Reference Range Interpretation [...] = 2801) RAD, CHEST, 1 VIEW, NON [id number] 14:28:00Reason for exam:- >hemothoraxShould this be performed [...] Cruz Verified Date/Time: 04/15/2019 14:28:00 Reading Location: [facility] Radiology Reading Room SPIN/CONCENTRATION CHARGE 2019-04-15 14:00:00 Test Item Value Reference Range Interpretation Comments Concentration charged (test code = Done 2657) [facility] [id number] 14:00:00 Test Item Value Reference Range Interpretation Comments CONCENTRATION CHARGED (BEAKER) (test Done code = 2657) Thromboelastograph (TEG)2019-04-15 13:00:00 Test Item Value Reference Range Interpretation Comments TEG Activated Clotting Time (test 5.0 4.0- 7.0 minutes code = 43080-2) TEG Fibrinogen Activity (test 75.9 61.0- 73.0 degrees H code = 97983-6) TEG Platelet Aggregation (test 69.6 55.0- 65.0 MM H code = 59858-6) TEG Fibrinolysis (test code = 0.1 % 0-5 32494-2) TEG-H Activated Clotting Time 5.1 4.0- 7.0 minutes (test code = 1411) TEG-H Fibrinogen Activity (test 76.0 61.0- 73.0 degrees H code = 1412) TEG-H Platelet Aggregation (test 65.7 55.0- 65.0 MM H code = 1413) TEG-H Fibrinolysis (test code = 4.1 % 0-5 1414) Lab Interpretation (test code = Abnormal 89728-3) [facility]2019-[facility]-15 13:00:00 Test Item Value Reference Range [...] (test 4.1 % 0.0-5.0 code = 1414) [id number] 11:47:00 Test Item Value Reference Range Interpretation Comments Case Report (test code Medical Cytology Report = 104) Case: [id number] Authorizing Provider: Fernando Andrews MD Collected: 04/14/2019 1548 Ordering Location: [facility] Received: 04/15/2019 0913 PERIOPERATIVE SERVICES Pathologist: Sean Piedra MD Specimen: Pleural, Right, Multi loculated pleural effusions DIAGNOSIS (test code = j7gboXKvCMCyu0nzCLYhaNO 3220) uZzEwMzNcZnRuYmpcdWMxIH scptNlHLnlf8NjI7DzQkMkV FxhbnNpXGRlZmxhbmcxMDMz MJF0tvItZWPwNDjtKOGeOIb dRs8wjXGflMfhJdCmOHVvd9 cwptRWwrnslFt5e1iaFRFaP lO7uONdTDcsZ8ssofPjcMVo JGMaMRk3jF92RRMinR9nkSH sRYzxsnTmLxH1GBfvMCNiOi J1YORqcLLdJZGlC2zbVPLjH HdeMBNiOWagkRFrCJI5uPoc s4U2oEEqrMSweAjbWcVqFuT eAEUTx1AaUFl3fMtvW7WkMJ FzHaG6wVFhRMPjSDqrSFCjV YNmzaR8qE67ITxbfoU2tLVc s4Pns69hq673yJ5mhRNxWNL 2RHMuJRIzaGHmERIgDRT1IE YwoRZfM0q4SuSxsNYuW6B3Y qPckIGrZ2H6MoOzaUHfE1T6 ByHdcKOzYAAgpBWpDa4lfZL srVOwkz2loq50QFH9n8WvmO pzYNO1WQV8QjOxHu8mfWRlO UXpLN6nAwVfcZDsCBJtrx66 xRxvQKmcyhTxmL4nAvGdBWE llTHdSFVyZP4pbSToTTXojJ 5ucmxjXHBnYnJkcmhlYWRcc FsoksEkAa2rqWetNVD0HFib A8sknB9eBdO2RHqnT3hfiC5 aMWz3GIycyGQ3FSTwwE0jGM 7wadqha0lrLlBmUX8brsklf 9moXtIpWU2yqyy9n1tnJeEu JB8poxvgr3tpYkIlQPhfILO uwwrlBRZri0BumcbqFTSbh5 ZxA5DxoUfuD98fmPqgT49oL JHdzPvszB5bnYxbgU5iMzZp ZnMyNFxxbFxwbGFpblxmMVx mczIwXGxhbmcxMDMzXGhpY2 wlWkCgQGIlbPywWTucg7AsO GYxXGZzMjAgUklHSFQgUExF AGTTENCAMLAJQEPcG4tHL3Z DYB4QZUgswEdoFLEbQMPfQS 9EG3JVXJQLSZRNQxCPBAlEY 05BTkNZXHBhciAgICAgIFBS EDWZPGuHUN4URPtxHybRT9S jdLVtzCkyhqTxKFmsa0AsOK tzFABfFU0prKztBXMiTX5tP ULvZ9wqaI8mxty5PxQeCIAw KnG9HGVakoK7Lls6NSXwQRz kk5qwu5WdJDFqBEu3hBzxGp YqVNQmd8bzjfXcTpDrYDXyE VDbOWRryDVwH149q2fsm1bi irFliKW4PWInOZH4VClffoB purM0BYdycCJtNfB4SUjjgn UbGKqpsdGotzSmIef5PAUdN 596KIY1nBorn1igHAC4ZGNh FWXrYnRgSp7zoZKcZ491XUN vESPIYKSlrWa2BCBngzFsyo BldQSZx857V262m4xyLXLha mJovQwWnsalm7glH850AVSq cGVydzEyMjQwXHBhcGVyaDE 1RPWhMV5xmxzuSHprCKrjBL XkdkS1OWFxxWSeF5FzKYBmT V6kyffuDHO0IFwmKTHdSZD0 SyAmXQOfr3Ilmvu9DaYlxp4 yxd03XIL7d2IvsLycNBU7ZF V4RmRrAg7taZHtVUUgQA4aZ oNitCTvBYTlrr59uAniCLbq DCQ0NFLjrrLle8Pxf1yxHvM ssnHjX9laU2LyCVAsSTFuKG CnQjKmoiQbn8Lnh2TtcDXen Ju5l3edKLLlOPOshAwvc6st ISL4ORGzyVUwM6hopP9vNHD cYJ4qfnztf3txHGruBAhqKS BhyJM8imO5PRGdrMYgI2Vbc Y3gEPDoBKxmKORdzcp9NsKc Is9myVVpwQqgLLzxUjibZVl lXHBnbmNvbnRccGduZGVjXH BsYWluXHBsYWluXGYwXGZzM jRccWxcbGFuZzEwMzNcaGlj wChmUFxhEaDyNHOhPSymU4l gApBvLpApUei4KOKudQSoUD WnYfe4ADNnaIGfBSGMxPbts P5dJNSkuPbpoY2sqVE0ABOg vkDfdOVKlE4lIPDLaA2tSsS 1DuMmQjT4KIDbYJrDDRKaul 19 CPT Code(s) (test code d1ahqWKlLNBokPVxLbBfSYW = 3357) eSUShv7elOYZhdYRtXsKvCv NcZnRuYmpcdWMxXGRlZmYwe 1ffp203cYEdb9ojAFLoUfN5 tABnQLCyxGSgJ094z6dzf5x zghDmwSF7PAPiPRR9YHiswn RwbvR3YUmnxVSnToC8AVfxl fVoAAexwaRgjmAhEio9WDDf N641QRH7ePjem8qcLCO4MVN uVKDjYlOoKr3frNWzD524EX OmMEBLGHJcnXp5CVAweiQvs xIuwFMRu203V890t5brVIUz hyKajLoJvqrrk3mcE649CCD hcGVydzEyMjQwXHBhcGVyaD I0AINeKX7prieuSqZeBN3vn bjwQoQyNC9dsxl9WwRsKK7z cmdiNzIwXGhlYWRlcnkwXGZ gd1HupxpnRH3hW2Fwu6A6aK 9maXRcZGVmdGFiNzIwXGZvc b3msOJeYKiqe7OoQDG5cyD6 rWDltXPyAWQgBV64Ylnom4Z iAvjmKRY4WWWexiKmj4Cad6 vcMbFhofIkU0jpD8FkXZOfX CNjQZKzOrIrnaXdf0Jyb7Qk eUIcrRo8d6cdDNIfTPIvfPf tm9vaFEM0VYCxQ9Q1jQEgy5 zpBTxqSTMdhCU2snaoUEadY FMpndS2fitpWVgiVZWvnQY0 qxewTLfyFCTkVoA5tzwiQWt hISXsTJE8RXafg959ORQ4QL xzYmtwYWdlXHBnbmNvbnRcc GduZGVjXHBsYWluXHBsYWlu XGYwXGZzMjRccWxccGxhaW5 lJqDkRyKsOIreUX5fIIGhB6 xrmXKwWMSuJVIpJ4mhOyLpx I3kmJgnQWpemkJdGLc3YCS6 XHBhcn0= CLINICAL DATA (test j9lygQIpKSBrsDHdBoVmPVS code = 3355) fBDKeq7jdNXSwrCLyBfDuRz NcZnRuYmpcdWMxXGRlZmYwe 6jlj250gDQgy6nxHSDtRaC7 nGNfEKKjcCUtR278FUXkWSa df4rol4SqTYJngXKvj3V4PH OGucmqzQh8hKklR91pg4S1K jvgE6oiPJJqPRUeJ9XdEH3i QBCnHic4XNY7MVQ7NOHfVWR xJ2HmTP5uSFFqcVRlOKg7j1 ohyWduGWPkFKP0a0glAGhhx nLcQF0ixx5drKr6q3hmpcJp FLYlGGJloWYCJBRpL7QzrNy bXf2bwEw9cIoxEwsoRBW5Sz b3FK5vzs42bhi5jIdcEZUnz gyaRyU6TKrmKUClgyykFKv2 MFxtYXJnbDcyMFxtYXJncjc yMFxtYXJndDcyMFxtYXJnYj kiBYghBLJoKXH9SXirw795Y NZ6QKdqf2xtx4pmcXMcLcb2 IODnJqFgTmjmYRwsj9Hqo9z dNQWkez2vZRJ7hAHfxZcdq7 N2mNOgSSGztKGnxjRoKFTsQ yC8YYujWK8oep91TKFdFVW5 ra8gtEMalUrkstYliVVgEIb pM4RqSAMtv498DHYfM1ImGZ Nan6S0esShCzXxVWXabIJ7f kB2QZDaKSx5kCWuiaQ4odXs iWDcE0cepI12YhRnpGXfV7Z xbH70GvJydXYyH4QujQ00Io CdgDXhJ3QrdO50CgDwrMVmS IEidVWnVa4apSMxaDAel2Ww gRSkZGapZ58de994XXXyajI cA4muhZSgysfotEBowphsMD jlohD1QKHoKSNeIZnfTKIjL GZzMjBcbGFuZzEwMzNcaGlj fOkxDFzaChEpQWDjNFlzK1q cZjFcZnMyMCBSaWdodCBtdW w5kJHlf9N0lVM3PCCzaSybc MFqtSPwNhR1x9wjofQdVXNd XKIgb73nATjnUKE2gEMfxbB zcGlyYXRvcnkgZmFpbHVyZV xwYXJ9 SPECIMEN SOURCE (test m0gixPSfLPYlaIUwSgOkCGS code = 3377) uPBQzw7ovYMVszTOsDaQuZe NcZnRuYmpcdWMxXGRlZmYwe 5elz722oRCyg7viMSFuZfZ8 yEOnFCDhnUIgZ001b1tqs7u ymqQedNA9VLAjTCX1KLuqbf ClqhY3SSpxaZWgGxS1YQvfn sYjPEvithCjybOnEod5TWQr O777GXO9tJprb9shWAX3NDP kJOLaAxYjZt5zrQWpU106BI JnBSIMRMLgwHr5GRNgnpJkq zQxtURQd006T005p7ofKENy elMvdMpKtdmds9kpP720YHW hcGVydzEyMjQwXHBhcGVyaD U5AVBsSA7sabsnLzZwZM0wp dbpKqJrEQ7jbfy8LiViMW3o cmdiNzIwXGhlYWRlcnkwXGZ mo1BmwtqwIX9eK8Dng8J2nJ 9maXRcZGVmdGFiNzIwXGZvc z9eiQAtUQboc4DnAYU6peI3 lYPqpVFmCVVrTA70Gtiuc5I sZmibFMO5MAFpphAla2Rhj1 dhFhTkohIdF5mcH4VwZGYbU IJfNCVuVcCionXcr8Wdu0Yc wWIzuUr4m9liKBLjAXIzcWf ik8kqRVV3IBXqE8C1jMAvc9 mpLAokILRwcHS7wjafXQdxF JJpopI1jgcaXRroGELvjSM7 idlpVMszSZTmCzA6dpvtVLo aAXBjAGJ6JBlet176XGU7GP xzYmtwYWdlXHBnbmNvbnRcc GduZGVjXHBsYWluXHBsYWlu XGYwXGZzMjRccWxccGxhaW5 nUtIzDyHnCGboFX9hRUVbN9 hsxLMiUSPjXWBwD9lhNfXwl G3uaOibOIvtcwFsYWYRS8pP IFBMRVVSQUwgRkxVSURccGF yfQ== GROSS DESCRIPTION e8yzqBCxBWAvdJShDcGnDFT (test code = 3366) qFRTgp8mlOAOeyMThWvPrTn NcZnRuYmpcdWMxXGRlZmYwe 7rzd533zZGud1lbIBOvBkO6 aTCdXBKwaALpP479QCVjDWt qt4yoj9UwQHTheLBya7T0AR QBzmfbdQy5oMfmM88cl9D6N zxvF5zrBEDmNYCbL6SyAW4m GDHuKkb7NLJ7LSQ2UVNwJBQ hE3EkZV9qTCMxtTGpUXt8y0 hcqFlfBEDhOKP7p1ilMNtof hCpTG8lol2roPp5m5lxphTs HGTvJZIguSLMXIWyT9XvzNr zJm9izTj4kSanXfklWCG1Le x1CH7xlx47oby4fBolPFLpc zvjEgZ3KJcnGMSjesmyOAx6 MFxtYXJnbDcyMFxtYXJncjc yMFxtYXJndDcyMFxtYXJnYj urZMnwWHZzBFT1FMqnc588Q ZA3AAmxx7mrp9qmmJMdCko4 NTZmVgXpPzroQWnjs9Yno0w yKOYyzt1pDYE7xOGrfIszr7 F0wGSmTKPvqWVpulPfYEVqQ pK5UUnlUT4vzy98ZLTjRNM2 gk2aaQGzeEfpatRnmVYfIUx jD8AlFOZnl631VJKvI4IpYT Pwe7S8kzZpOiByUGEreBZ1g pG4FPJrXOo1qLYgnwT3jyEq kDLiE3xefR25LlVcpVUnJ0C imU08KiBgvRHnU4RjsG34Uy QprVAoQ3TjzF37NgMttFPgA NUviSBoDm0jiLLffOZyd1Zn cNSyBVwhV87pe075BOIporJ oU5hxlZBohcthiFGplzncSE toifB7AIGnZIZjNTcySNTgO GZzMjJcbGFuZzEwMzNcaGlj rXmgNZnjZpTkCCHnQMewI8p vRaYpOxIkMuX8GUTkrUubST Vdv22liXguYDFgxLAgi1Eii uUlbOPhNHBnqTvuU0FkRQow MDIxNzIwXHBhciBSZWNlaXZ lZDogMDIxODIwXHBhcn0= STATEMENT OF ADEQUACY Satisfactory (test code = 2757) Gross assessment was [facility] performed at ([facility], code = 2777) Department of Pathology, [address] [place] [address], Technical component [facility] was performed at ([facility], code = 2778) Department of Pathology, [address] [place] [address] 18[address], Professional component [facility] was performed at ([facility], code = 2779) Department of Pathology, [address] [place] [address], [facility] 11:47:00Medical Cytology Report Case: [id number] Aut horizing Provider: Fernando Andrews MD Collected: 04/14/2019 1548 Ordering Location: [facility] Received: 04/15/2019 0913 PERIOPERATIVE SERVICES Pathologist: Sean Piedra MD Specimen: Pleural, Right, Multi loculated pleural effusions RIGHT PLEURAL FLUID (CYTOSPINS): - NEGATIVE FOR MALIGNANCY PREDOMINANTLY BLOOD Signing Pathologist Direct Phone Line: [phone] signed by Sean Piedra MD on 04/15/2019 at 11:47 [id number] multi loculated pleural effusions, pneumonia, acute respiratory failureRIGHT PLEURAL [id number] mls bloody; 4 cytospinsCollected: [id number]: [id number] [facility],Department of Pathology, [address] [place] [address], [facility], Department of Pathology, [address] [place] [address], [facility], Department of Pathology, [address] [place] [address], QFKE-GLUCOSE [id number] 11:33:00 Test Item Value Reference Range Interpretation Comments POC-GLUCOSE METER 113 mg/dL 70-110 H : TESTED [facility] 6720 (BEAKER) (test code = ILDA Calvert [facility], 1538) [id number]: Pulpit Operator/Techni aaron ID = [id number] for JIGNA ALEJANDRE CBC W/PLT COUNT & AUTO [id number] 09:14:00 Test Item Value Reference Range Interpretation [...] PERCENT (BEAKER) (test code = 2801) CALCIUM, [id number] 06:51:00 Test Item Value Reference Range Interpretation Comments CALCIUM IONIZED (BEAKER) (test 1.11 mmol/L 1.12-1.27 L code = 698) PH, BLOOD (BEAKER) (test code = 7.47 1810) RAD, CHEST, 1 VIEW, NON [id number] 05:32:00Reason for exam:->s/p R VATSShould this be performed at the bedside?->YesFINAL REPORT CLINICAL INDICATION: Postop Comparison: 04/14/2019 2032 hours The cardiomediastinal contours are stable. Right-sided parenchymal and pleural opacities are similar toprevious. A small right pneumothorax is noted at the lateral mid to upper chest. Support lines are stable. Signed: Reji Tyler MDReport Verified Date/Time: 04/15/2019 05:32:15 BLOOD GAS, [id number] 05:01:00 Test Item Value Reference Range Interpretation [...] code = 1819) 100.0 % Lactic Acid, [id number] 04:56:00 Test Item Value Reference Range Interpretation Comments Lactate, Art (test code = 1.2 mmol/L 0.5-2.2 2874) DORI (test code = DORI) Pulpit Operator ANGELI BOWERS M Lab Interpretation (test Normal code = 02103-9) [facility] METABOLIC [id number] 04:56:00 Test Item Value Reference Range Interpretation [...] S NOT APPLICABLE FOR DIALYSIS PATIEN TS. Pulpit Operator ID - ELISSA MLACTIC ACID, [id number] 04:56:00 Test Item Value Reference Range Interpretation Comments LACTATE BLOOD ARTERIAL (2) 1.2 mmol/L 0.5-2.2 (BEAKER) (test code = 2874) Pulpit Operator ID - ELISSA [id number] 04:53:00 Test Item Value Reference Range Interpretation Comments PHOSPHORUS (BEAKER) (test code = 4.3 mg/dL 2.3-4.7 604) Pulpit Operator ID - ELISSA [id number] 04:53:00 Test Item Value Reference Range Interpretation Comments MAGNESIUM (BEAKER) (test code = 2.0 mg/dL 1.6-2.6 627) Pulpit Operator ANGELI BOWERS [facility] W/PLT COUNT & AUTO [id number] 04:41:00 Test Item Value Reference Range Interpretation [...] 0-1 PERCENT (BEAKER) (test code = 2801) [id number] 02:37:00 Test Item Value Reference Range Interpretation Comments Fibrinogen (test code = 3255-7) 177 mg/dl 225-434 L Lab Interpretation (test code = Abnormal 94745-0) [facility] CenterPT/[id number] 02:37:00 Test Item Value Reference Range Interpretation Comments Protime (test code = 19.8 11.9- 14.2 H 5902-2) seconds INR (test code = 1.7 <=5.9 6301-6) PTT (test code = 41.1 22.5- 36.0 H 42241-1) seconds DORI (test code = DORI) Effective 07/24/2018: PT Reference Range ChangeNew: 11.9-14.2 Previous: 11.7-14.7 RECOMMENDED COUMADIN/WARFARIN INR THERAPY RANGESSTANDARD DOSE: 2.0-3.0 Includes: PROPHYLAXIS for venous thrombosis, systemic embolization; TREATMENT for venous thrombosis and/or pulmonary embolus.HIGH RISK: Target INR is 2.5-3.5 for patients wiht mechanical heart valves. Lab Interpretation Abnormal (test code = 38062-4) [facility] CenterFIBRINOGEN2020-02-18 02:37:00 Test Item Value Reference Range Interpretation Comments FIBRINOGEN LEVEL (BEAKER) (test 177 mg/dl 225-434 L code = 658) [id number] 02:37:00 Test Item Value Reference Range Interpretation [...] INR is2.5-3.5 for patients wiht mechanical heart valves.[id number] 02:37:00 Test Item Value Reference Range Interpretation Comments PARTIAL THROMBOPLASTIN TIME 41.1 seconds 22.5-36.0 H (BEAKER) (test code = 760) PROTHROMBIN TIME/[id number] 02:36:00 Test Item Value Reference Range Interpretation [...] mechanical heart valves.CBC W/PLT COUNT & AUTO [id number] 01:17:00 Test Item Value Reference Range Interpretation Comments WHITE BLOOD CELL COUNT 10.9 K/ L 3.5-10.5 H (BEAKER) (test code = 775) RED BLOOD CELL COUNT 1.74 M/ L 4.63-6.08 L (BEAKER) (test code = 761) HEMOGLOBIN (BEAKER) 4.4 GM/DL 13.7-17.5 LL Post jordy stevie (test code = 410) specimen p er B.no.[id number]. HEMATOCRIT (BEAKER) 14.6 % 40.1-51.0 L (test [...] GRANULOCYTES-RELATIVE PERCENT (BEAKER) (test code = 2801) [id number] 00:58:00 Test Item Value Reference Range Interpretation Comments Cortisol, Total (test code = 10.6 ug/dL 3.7-19.4 2755) DORI (test code = DORI) Pulpit Operator ID - BS Lab Interpretation (test Normal code = 79745-8) [facility] CenterCORTISOL2020-02-18 00:58:00 Test Item Value Reference Range Interpretation Comments CORTISOL, TOTAL (BEAKER) (test 10.6 ug/dL 3.7-19.4 code = 2755) Pulpit Operator ID - BSPOCT-GLUCOSE [id number] 00:35:00 Test Item Value Reference Range Interpretation Comments POC-GLUCOSE METER 105 mg/dL 70-110 : TESTED A T [facility] 6720 (BEAKER) (test code = ILDA Calvert [facility], 1538) 472[address]: Pulpit Operator/Techni aaron ID = [id number] for Yuli Conklin, CHEST, 1 VIEW, NON [id number] 22:34:00On arrival to [facility] for exam:->s/p R VATS decorticationShould this be performed at the bedsid e?->YesFINAL REPORT TECHNIQUE: Frontal view of the [...] MDReport Verified Date/Time: 04/14/2019 22:34:49 Reading Location: [address] Consult Reading Room [id number] 20:24:00 Test Item Value Reference Range Interpretation Comments PHOSPHORUS (BEAKER) (test code = 4.0 mg/dL 2.3-4.7 604) Pulpit Operator ID - [id number] 20:24:00 Test Item Value Reference Range Interpretation Comments MAGNESIUM (BEAKER) (test code = 1.8 mg/dL 1.6-2.6 627) Pulpit Operator ID - BSBLOOD GAS, [id number] 20:22:00 Test Item Value Reference Range Interpretation [...] (test code = 1819) 80.0 % CALCIUM, [id number] 20:19:00 Test Item Value Reference Range Interpretation Comments CALCIUM IONIZED (BEAKER) (test 1.23 mmol/L 1.12-1.27 code = 698) PH, BLOOD (BEAKER) (test code = 7.44 1810) COMPREHENSIVE METABOLIC [id number] 19:53:00 Test Item Value Reference Range Interpretation [...] S NOT APPLICABLE FOR DIALYSIS PATIEN TS. Pulpit Operator ID - BSHGB/HCT (H&H)-Stat [id number] 17:56:00 Test Item Value Reference Range Interpretation Comments Hemoglobin (test code = 786-4) 9.0 g/dL 13-16.8 L Hematocrit (test code = 4544-3) 26.0 % 40-50 L Lab Interpretation (test code = Abnormal 32295-1) [facility] CenterPotassium-Stat [id number] 17:56:00 Test Item Value Reference Range Interpretation Comments Potassium (test code = 2823-3) 3.4 meq/L 3.6-5.5 L Lab Interpretation (test code = Abnormal 35495-3) [facility] CenterBLOOD GAS, [id number] 17:56:00 Test Item Value Reference Range Interpretation [...] (test code = 1819) 100.0 % CALCIUM, [id number] 17:56:00 Test Item Value Reference Range Interpretation Comments CALCIUM IONIZED (BEAKER) (test 1.30 mmol/L 1.12-1.27 H code = 698) PH, BLOOD (BEAKER) (test code = 7.46 1810) POTASSIUM-STAT [id number] 17:56:00 Test Item Value Reference Range Interpretation Comments POTASSIUM (BEAKER) (test code = 3.4 meq/L 3.6-5.5 L 379) HGB/HCT (H&H) - STAT [id number] 17:56:00 Test Item Value Reference Range Interpretation Comments HEMOGLOBIN (BEAKER) (test code = 9.0 g/dL 13.0-16.8 L 410) HEMATOCRIT (BEAKER) (test code = 26.0 % 40.0-50.0 L 411) Glucose-Stat [id number] 17:55:00 Test Item Value Reference Range Interpretation Comments Glucose (test code = 2345-7) 100 mg/dL 70-110 Lab Interpretation (test code = Normal 66104-6) [facility] [id number] 17:55:00 Test Item Value Reference Range Interpretation Comments Sodium (test code = 2951-2) 138 meq/L 135-148 Lab Interpretation (test code = Normal 46326-4) [facility] CenterGLUCOSE-STAT [id number] 17:55:00 Test Item Value Reference Range Interpretation Comments GLUCOSE RANDOM (BEAKER) (test code 100 mg/dL 70-110 = 652) SODIUM NA-STAT [id number] 17:55:00 Test Item Value Reference Range Interpretation Comments SODIUM (BEAKER) (test code = 381) 138 meq/L 135-148 BLOOD GAS, [id number] 16:42:00 Test Item Value Reference Range Interpretation [...] (test code = 1819) 100.0 % POTASSIUM-STAT [id number] 16:42:00 Test Item Value Reference Range Interpretation Comments POTASSIUM (BEAKER) (test code = 3.4 meq/L 3.6-5.5 L 379) HGB/HCT (H&H) - STAT [id number] 16:42:00 Test Item Value Reference Range Interpretation Comments HEMOGLOBIN (BEAKER) (test code = 10.1 g/dL 13.0-16.8 L 410) HEMATOCRIT (BEAKER) (test code = 30.0 % 40.0-50.0 L 411) CALCIUM, [id number] 16:41:00 Test Item Value Reference Range Interpretation Comments CALCIUM IONIZED (BEAKER) (test 1.12 mmol/L 1.12-1.27 code = 698) PH, BLOOD (BEAKER) (test code = 7.51 1810) GLUCOSE-STAT [id number] 16:39:00 Test Item Value Reference Range Interpretation Comments GLUCOSE RANDOM (BEAKER) (test code 104 mg/dL 70-110 = 652) SODIUM NA-STAT [id number] 16:39:00 Test Item Value Reference Range Interpretation Comments SODIUM (BEAKER) (test code = 381) 137 meq/L 135-148 GLUCOSE-STAT [id number] 15:31:00 Test Item Value Reference Range Interpretation Comments GLUCOSE RANDOM (BEAKER) (test code = 92 mg/dL 70-110 652) SODIUM NA-STAT [id number] 15:31:00 Test Item Value Reference Range Interpretation Comments SODIUM (BEAKER) (test code = 381) 135 meq/L 135-148 CALCIUM, [id number] 15:31:00 Test Item Value Reference Range Interpretation Comments CALCIUM IONIZED (BEAKER) (test 1.07 mmol/L 1.12-1.27 L code = 698) PH, BLOOD (BEAKER) (test code = 7.55 1810) BLOOD GAS, [id number] 15:31:00 Test Item Value Reference Range Interpretation [...] (test code = 1819) 100.0 % POTASSIUM-STAT [id number] 15:31:00 Test Item Value Reference Range Interpretation Comments POTASSIUM (BEAKER) (test code = 3.4 meq/L 3.6-5.5 L 379) HGB/HCT (H&H) - STAT [id number] 15:31:00 Test Item Value Reference Range Interpretation Comments HEMOGLOBIN (BEAKER) (test code = 10.2 g/dL 13.0-16.8 L 410) HEMATOCRIT (BEAKER) (test code = 30.0 % 40.0-50.0 L 411) RAD, CHEST, 1 VIEW, NON [id number] 10:51:00Reason for exam:->eval pleural effusionsShould this be [...] MDReport Verified Date/Time: 04/14/2019 10:51:03 Reading Location: [facility] Type and screen, automated 2019-04-14 02:31:00 Test Item Value Reference Range Interpretation Comments ABO/RH AUTOMATED (BEAKER) (test A NEGATIVE code = 2260) Ab Scrn (test code = 890-4) [facility]IVE [facility]OL[facility] [id number] 01:52:00 Test Item Value Reference Range Interpretation [...] S NOT APPLICABLE FOR DIALYSIS PATIEN TS. Pulpit Operator ID - EMILIE [id number] 01:51:00 Test Item Value Reference Range Interpretation Comments PHOSPHORUS (BEAKER) (test code = 2.8 mg/dL 2.3-4.7 604) Pulpit Operator ID - EMILIE [id number] 01:51:00 Test Item Value Reference Range Interpretation Comments MAGNESIUM (BEAKER) (test code = 2.1 mg/dL 1.6-2.6 627) Pulpit Operator ID - EMILIE LCBC W/PLT COUNT & AUTO [id number] 01:30:00 Test Item Value Reference Range Interpretation [...] PERCENT (BEAKER) (test code = 2801) PROTHROMBIN [id number] 01:26:00 Test Item Value Reference Range Interpretation [...] is2.5-3.5 for patients wiht mechanical heart valves.POCT-GLUCOSE [id number] 20:47:00 Test Item Value Reference Range Interpretation Comments POC-GLUCOSE METER 114 mg/dL 70-110 H : TESTED A T [facility] 6720 (BEAKER) (test code = [facility], 1538) [address]: Pulpit Operator/Techni aaron ID = [id number] for CL ARKDORONALBERTINA POCT-GLUCOSE [id number] 17:43:00 Test Item Value Reference Range Interpretation Comments POC-GLUCOSE METER 117 mg/dL 70-110 H : TESTED A T [facility] 6720 (BEAKER) (test code [facility], = 1538) [address]73: Pulpit Operator/Techni aaron ID = [id number] for LEWI S, [place] POCT-GLUCOSE [id number] 12:16:00 Test Item Value Reference Range Interpretation Comments POC-GLUCOSE METER 111 mg/dL 70-110 H : TESTED A T [facility] 6720 (BEAKER) (test code [facility], = 1538) [address]200: Pulpit Operator/Techni aaron ID = [id number] for LEWI S, [place] RAD, CHEST, 1 VIEW, NON [id number] 08:47:00Reason for exam:->right pleural effusion s/p TPAShould [...] MDReport Verified Date/Time: 04/13/2019 08:47:02 Reading Location: [address] Transitional Reading Room Electronically s igned [...] S NOT APPLICABLE FOR DIALYSIS PATIEN TS. Pulpit Operator ID - GEORGINAepatic function [id number] 06:12:00 Test Item Value Reference Range Interpretation Comments Protein, Total (test code 5.5 6.0- 8.3 gm/dL L = 2885-2) Albumin (test code = 1.8 g/dL 3.5-5 L 73539-2) Total Bilirubin (test code 1.1 mg/dL 0.2-1.2 = 1975-2) Bilirubin, Direct (test 0.7 mg/dL 0.1-0.5 H code = 1968-7) Alkaline Phosphatase (test 157 U/L 40-150 H code = 6768-6) AST (test code = 1920-8) 38 U/L 5-34 H ALT (test code = 1742-6) 34 U/L 6-55 DORI (test code = DORI) Pulpit Operator ID - CHELSEY Lab Interpretation (test Abnormal code = 39037-8) [facility] [id number] 06:12:00 Test Item Value Reference Range Interpretation [...] (test code = 34 U/L 6-55 347) Pulpit Operator ID - KENNPOCT-GLUCOSE [id number] 06:10:00 Test Item Value Reference Range Interpretation Comments POC-GLUCOSE METER 126 mg/dL 70-110 H : TESTED A T [facility] 6720 (BEAKER) (test code = [place], 1538) [address]: Pulpit Operator/Techni aaron ID = [id number] for CH UA, HENRISON CBC W/PLT COUNT & AUTO [id number] 06:07:00 Test Item Value Reference Range Interpretation [...] 0-1 PERCENT (BEAKER) (test code = 2801) [id number] 06:07:00 Test Item Value Reference Range Interpretation Comments PHOSPHORUS (BEAKER) (test code = 3.0 mg/dL 2.3-4.7 604) Pulpit Operator ID - [id number] 06:07:00 Test Item Value Reference Range Interpretation Comments MAGNESIUM (BEAKER) (test code = 2.1 mg/dL 1.6-2.6 627) Pulpit Operator ID - [id number] 05:52:00 Test Item Value Reference Range Interpretation Comments PARTIAL THROMBOPLASTIN TIME 32.7 seconds 22.5-36.0 (BEAKER) (test code = 760) POCT-GLUCOSE [id number] 17:32:00 Test Item Value Reference Range Interpretation Comments POC-GLUCOSE METER 83 mg/dL 70-110 : TESTED A T [facility] 6720 (BEAKER) (test code = [place], 1538) 37[address]: Pulpit Operator/Techni aaron ID = [id number] for STOJ CIC, NADA Body fluid culture + gram [id number] 14:07:00 Test Item Value Reference Range Interpretation Comments Result (test code = No growth 6463-4) Gram Stain Result <1+ gram negative rods (test code = 1123) [facility] GRAM [id number] 14:07:00 Test Item Value Reference Range Interpretation Comments CULTURE (BEAKER) (test No growth code = 1095) GRAM STAIN RESULT <1+ WBCs (BEAKER) (test code = 1123) GRAM STAIN RESULT <1+ gram negative rods (BEAKER) (test code = 07479) POCT-GLUCOSE [id number] 12:20:00 Test Item Value Reference Range Interpretation Comments POC-GLUCOSE METER 84 mg/dL 70-110 : TESTED A T [facility] 6720 (BEAKER) (test code = ILDA Calvert [facility], 1538) 78731: Pulpit Operator/Techni aaron ID = [id number] for STOJ CIC, NADA RAD, CHEST, 1 VIEW, NON [id number] 07:44:00Reason for exam:->eval pleural effusionsShould this be [...] Tonie Rivas Verified Date/Time: 04/12/201907:44:33 Reading Location: [facility] C013Y CT Body Reading Room BASIC METABOLIC [id number] 06:46:00 Test Item Value Reference Range Interpretation [...] S NOT APPLICABLE FOR DIALYSIS PATIEN TS. Pulpit Operator ID - ELISSA MCBC W/PLT COUNT & AUTO [id number] 06:45:00 Test Item Value Reference Range Interpretation [...] 0-1 PERCENT (BEAKER) (test code = 2801) [id number] 06:45:00 Test Item Value Reference Range Interpretation Comments PHOSPHORUS (BEAKER) (test code = 3.8 mg/dL 2.3-4.7 604) Pulpit Operator ID - ELISSA [id number] 06:45:00 Test Item Value Reference Range Interpretation Comments MAGNESIUM (BEAKER) (test code = 2.1 mg/dL 1.6-2.6 627) Pulpit Operator ID - ELISSA MPOCT-GLUCOSE [id number] 05:33:00 Test Item Value Reference Range Interpretation Comments POC-GLUCOSE METER 78 mg/dL 70-110 : TESTED A Una [facility] 6720 (BEAKER) (test code = [place], 1538) 16912: Pulpit Operator/Techni aaron ID = [id number] for BARI VICTOR POCT-GLUCOSE [id number] 00:19:00 Test Item Value Reference Range Interpretation Comments POC-GLUCOSE METER 78 mg/dL 70-110 : Notified RN/MD: TESTED (BEAKER) (test code = AT BS [facility] 6720 [facility] 1538) [facility], 770 30: Pulpit Operator/Techni aaron ID = [id number] for BARI VICTOR POCT-GLUCOSE [id number] 17:51:00 Test Item Value Reference Range Interpretation Comments POC-GLUCOSE METER 89 mg/dL 70-110 : TESTED A T [facility] 6720 (YELITZA) (test code = [facility], 1538) 09754: Pulpit Operator/Techni aaron ID = [id number] for RADHA CLAROS RAD, CHEST, 1 VIEW, NON [id number] 13:20:00Reason for exam:->eval pleural effusionsShould this be [...] Verified Date/Time: 04/11/2019 13:20:58 ReadingLocation: [facility] Reading Room POCT-GLUCOSE METER 2019-04-11 12:21:00 Test Item Value Reference Range Interpretation Comments POC-GLUCOSE METER 82 mg/dL 70-110 : TESTED A T [facility] 6720 (BESHAYLA) (test code = [facility], 1538) 72016: Pulpit Operator/Techni aaron ID = [id number] for RADHA CLAROS POCT-GLUCOSE [id number] 10:51:00 Test Item Value Reference Range Interpretation Comments POC-GLUCOSE METER 84 mg/dL 70-110 : TESTED A T [facility] 6720 (BEAKER) (test code = [facility], 1538) 40812: Pulpit Operator/Techni aaron ID = [id number] for MIKE DAVIDSON BASIC METABOLIC [id number] 08:47:00 Test Item Value Reference Range Interpretation [...] S NOT APPLICABLE FOR DIALYSIS PATIEN TS. Pulpit Operator ID Sultana SCOTT [id number] 08:46:00 Test Item Value Reference Range Interpretation Comments PHOSPHORUS (BEAKER) (test code = 3.3 mg/dL 2.3-4.7 604) Pulpit Operator ID Sultana SCOTT [id number] 08:46:00 Test Item Value Reference Range Interpretation Comments MAGNESIUM (BEAKER) (test code = 2.2 mg/dL 1.6-2.6 627) Pulpit Operator ID Sultana SCOTT FPOCT-GLUCOSE [id number] 07:13:00 Test Item Value Reference Range Interpretation Comments POC-GLUCOSE METER 84 mg/dL 70-110 : TESTED A T [facility] 6720 (BEAKER) (test code = ILDA Calvert [facility], 1538) 63439: Pulpit Operator/Techni aaron ID = [id number] for SUBL ETMARÍA CBC W/PLT COUNT & AUTO [id number] 06:26:00 Test Item Value Reference Range Interpretation [...] PERCENT (BEAKER) (test code = 2801) PROTHROMBIN [id number] 06:22:00 Test Item Value Reference Range Interpretation [...] is2.5-3.5 for patients wiht mechanical heart valves.POCT-GLUCOSE [id number] 00:28:00 Test Item Value Reference Range Interpretation Comments POC-GLUCOSE METER 97 mg/dL 70-110 : TESTED A T [facility] 6720 (Cint) (test code = Netscape [facility], 1538) 00043: Pulpit Operator/Techni aaron ID = [id number] for MARÍA DON POCT-GLUCOSE [id number] 15:14:00 Test Item Value Reference Range Interpretation Comments POC-GLUCOSE METER 97 mg/dL 70-110 : TESTED A T [facility] 6720 (Cint) (test code = [employer] [facility], 1538) 39659: Pulpit Operator/Techni aaron ID = [id number] for JAVIER IVY RAD, CHEST, 1 VIEW, NON [id number] 09:36:00Reason for exam:->eval pleural effusionsShould this be [...] MDReport Verified Date/Time: 04/10/2019 09:36:48 Reading Location: [facility] [place] ReadingRoom BASIC METABOLIC PANEL 2019-04-10 06:20:00 Test [...] S NOT APPLICABLE FOR DIALYSIS PATIEN TS. Pulpit Operator ID - [id number] 06:06:00 Test Item Value Reference Range Interpretation Comments PHOSPHORUS (BEAKER) (test code = 3.7 mg/dL 2.3-4.7 604) Pulpit Operator ID - [id number] 06:06:00 Test Item Value Reference Range Interpretation Comments MAGNESIUM (BEAKER) (test code = 2.0 mg/dL 1.6-2.6 627) Pulpit Operator ID - LACBC W/PLT COUNT & AUTO [id number] 05:54:00 Test Item Value Reference Range Interpretation [...] PERCENT (BEAKER) (test code = 2801) POCT-GLUCOSE [id number] 00:49:00 Test Item Value Reference Range Interpretation Comments POC-GLUCOSE METER 113 mg/dL 70-110 H : TESTED A T [facility] 6720 (BEAKER) (test code = ILDA [place], 1538) 80005: Pulpit Operator/Techni aaron ID = [id number] for ALBERTINA MEADE POCT-GLUCOSE [id number] 17:50:00 Test Item Value Reference Range Interpretation Comments POC-GLUCOSE METER 86 mg/dL 70-110 : TESTED A T [facility] 6720 (BEAKER) (test code = [facility], 1538) 43398: Pulpit Operator/Techni aaron ID = [id number] for STOKat CIC, [place] FL, ESOPH, SWALLOW FUNCTION, WITH CINE OR [id number] 16:22:00Reason for exam:->dysphagia, on TFsFINAL REPORT Modified [...] minutes Number of images: 8 Signed: Edwin Salazareport Verified Date/Time: 04/09/2019 16:22:18 Reading Location: [facility] Radiology Reading Room POCT-GLUCOSE [id number] 12:00:00 Test Item Value Reference Range Interpretation Comments POC-GLUCOSE METER 97 mg/dL 70-110 : TESTED A T [facility] 6720 (BEAKER) (test code = [facility], 1538) 36487: Pulpit Operator/Techni aaron ID = [id number] for DUON G, PRISCILLA POCT-GLUCOSE [id number] 09:53:00 Test Item Value Reference Range Interpretation Comments POC-GLUCOSE METER 102 mg/dL 70-110 : TESTED A T [facility] 6720 (BEAKER) (test code = [facility], 1538) 50966: Pulpit Operator/Techni aaron ID = [id number] for DU GILBERTO, PRISCILLA RAD, CHEST, 1 VIEW, NON [id number] 07:20:00Reason for exam:->eval pleural effusionsShould this be [...] Sanz Verified Date/Time: 04/09/2019 07:20:55 Reading Location: [facility] Radiology Reading Room Electronically signed by: CHRISTIE Piña 04/09/2019 07:20 [id number] 06:48:00 Test Item Value Reference Range Interpretation Comments PHOSPHORUS (BEAKER) (test code = 2.8 mg/dL 2.3-4.7 604) Pulpit Operator ID - [id number] 06:48:00 Test Item Value Reference Range Interpretation Comments MAGNESIUM (BEAKER) (test code = 1.8 mg/dL 1.6-2.6 627) Pulpit Operator ID - GALAPBASIC METABOLIC [id number] 06:48:00 Test Item Value Reference Range Interpretation [...] S NOT APPLICABLE FOR DIALYSIS PATIEN TS. Pulpit Operator ID - GALAPCBC W/PLT COUNT & AUTO [id number] 06:39:00 Test Item Value Reference Range Interpretation [...] PERCENT (BEAKER) (test code = 2801) POCT-GLUCOSE [id number] 06:29:00 Test Item Value Reference Range Interpretation Comments POC-GLUCOSE METER 70 mg/dL 70-110 : TESTED A T [facility] 6720 (BEAKER) (test code = [facility], 1538) 17605: Pulpit Operator/Techni aaron ID = [id number] for SAURAV GRIMM POCT-GLUCOSE [id number] 05:40:00 Test Item Value Reference Range Interpretation Comments POC-GLUCOSE METER 90 mg/dL 70-110 : TESTED A T [facility] 6720 (BEAKER) (test code = [facility], 1538) 10552: Pulpit Operator/Techni aaron ID = [id number] for AMIE KEARNEY POCT-GLUCOSE [id number] 17:57:00 Test Item Value Reference Range Interpretation Comments POC-GLUCOSE METER 90 mg/dL 70-110 : TESTED A T [facility] 6720 (BEAKER) (test code = [facility], 1538) 42002: Pulpit Operator/Techni aaron ID = [id number] for ADILSON PRUITT NADA POCT-GLUCOSE [id number] 12:47:00 Test Item Value Reference Range Interpretation Comments POC-GLUCOSE METER 97 mg/dL 70-110 : TESTED A T [facility] 6720 (BEAKER) (test code = [facility], 1538) 69041: Pulpit Operator/Techni aaron ID = [id number] for JAVIER IVY RAD, CHEST, 1 VIEW, NON [id number] 07:33:00Reason for exam:->eval pleural effusionsShould this be [...] MDReport Verified Date/Time: 04/08/2019 07:33:22 [facility] POCT-GLUCOSE [id number] 05:33:00 Test Item Value Reference Range Interpretation Comments POC-GLUCOSE METER 97 mg/dL 70-110 : TESTED A T [facility] 6720 (BEAKER) (test code = IL[place], 1538) 19351: Pulpit Operator/Techni aaron ID = [id number] for ELIAZAR DEY BASIC METABOLIC [id number] 05:33:00 Test Item Value Reference Range Interpretation [...] S NOT APPLICABLE FOR DIALYSIS PATIEN TS. Pulpit Operator ID - [id number] 05:16:00 Test Item Value Reference Range Interpretation Comments PHOSPHORUS (BEAKER) (test code = 2.5 mg/dL 2.3-4.7 604) Pulpit Operator ID - [id number] 05:16:00 Test Item Value Reference Range Interpretation Comments MAGNESIUM (BEAKER) (test code = 1.9 mg/dL 1.6-2.6 627) Pulpit Operator ID - GALAPCBC W/PLT COUNT & AUTO [id number] 05:10:00 Test Item Value Reference Range Interpretation [...] PERCENT (BEAKER) (test code = 2801) POCT-GLUCOSE [id number] 00:34:00 Test Item Value Reference Range Interpretation Comments POC-GLUCOSE METER 111 mg/dL 70-110 H : TESTED A T [facility] 6720 (BEAKER) (test code = [facility], 1538) 24661: Pulpit Operator/Techni aaron ID = [id number] for ELIAZAR ANAND BASIC METABOLIC [id number] 18:38:00 Test Item Value Reference Range Interpretation [...] S NOT APPLICABLE FOR DIALYSIS PATIEN TS. Pulpit Operator ID - BSPOCT-GLUCOSE [id number] 17:48:00 Test Item Value Reference Range Interpretation Comments POC-GLUCOSE METER 113 mg/dL 70-110 H : TESTED A T [facility] 6720 (BEAKER) (test code = [facility], 1538) 03243: Pulpit Operator/Techni aaron ID = [id number] for MARQUIS SMITH FUNGUS CULTURE + [id number] 17:33:00 Test Item Value Reference Range Interpretation [...] to previous culture of Ana albicansAlbumin Pleural [id number] 16:52:00 Test Item Value Reference Range Interpretation Comments Albumin, Pleural Fluid (test code = 0.8 1748-3) [facility] [id number] 16:50:00 Test Item Value Reference Range Interpretation Comments PROTEIN, TOTAL, PLEURAL FLUID (test 2.6 code = 2882-9) [facility] [id number] 11:47:00 Test Item Value Reference Range Interpretation Comments POC-GLUCOSE METER 102 mg/dL 70-110 : TESTED A T [facility] 6720 (YELITZA) (test code = ILDA [place], 1538) 71900: Pulpit Operator/Techni aaron ID = [id number] for MARQUIS SMITH RAD, CHEST, 1 VIEW, NON [id number] 11:26:00Reason for exam:->S/p L chest tube removalFINAL [...] MDReport Verified Date/Time: 04/07/2019 11:26:55 Reading Location: [facility] Radiology Reading Room RAD, CHEST, 1 VIEW, NON [id number] 10:15:00Reason for exam:->eval pleural effusionsShould this be [...] Sanz Verified Date/Time: 04/07/2019 10:15:23 Reading Location: [facility] Radiology Reading Room 10:15 [id number] 08:15:00 Test Item Value Reference Range Interpretation Comments PHOSPHORUS (BEAKER) (test code = 3.3 mg/dL 2.3-4.7 604) Pulpit Operator ID - PHILIP [id number] 08:15:00 Test Item Value Reference Range Interpretation Comments MAGNESIUM (BEAKER) (test code = 2.0 mg/dL 1.6-2.6 627) Pulpit Operator ID - PHILIP CBASIC METABOLIC [id number] 08:15:00 Test Item Value Reference Range Interpretation [...] S NOT APPLICABLE FOR DIALYSIS PATIEN TS. Pulpit Operator ID - PHILIP CCBC W/PLT COUNT & AUTO [id number] 07:40:00 Test Item Value Reference Range Interpretation [...] PERCENT (BEAKER) (test code = 2801) POCT-GLUCOSE [id number] 06:50:00 Test Item Value Reference Range Interpretation Comments POC-GLUCOSE METER 92 mg/dL 70-110 : TESTED A T [facility] 6720 (BEAKER) (test code = [facility], 1538) 59886: Pulpit Operator/Techni aaron ID = [id number] for ELIAZAR DEY POCT-GLUCOSE [id number] 00:17:00 Test Item Value Reference Range Interpretation Comments POC-GLUCOSE METER 109 mg/dL 70-110 : TESTED A T [facility] 6720 (BEAKER) (test code = [facility], 1538) 82748: Pulpit Operator/Techni aaron ID = [id number] for ELIAZAR ANAND POCT-GLUCOSE [id number] 18:05:00 Test Item Value Reference Range Interpretation Comments POC-GLUCOSE METER 100 mg/dL 70-110 : TESTED A T [facility] 6720 (BEAKER) (test code = [facility], 1538) 22124: Pulpit Operator/Techni aaron ID = [id number] for RICARDO KEMP POCT-GLUCOSE [id number] 18:05:00 Test Item Value Reference Range Interpretation Comments POC-GLUCOSE METER 90 mg/dL 70-110 : TESTED A T [facility] 6720 (BEAKER) (test code = [facility], 1538) 54099: Pulpit Operator/Techni aaron ID = [id number] for TORR ES, EVANS BASIC METABOLIC [id number] 17:33:00 Test Item Value Reference Range Interpretation [...] S NOT APPLICABLE FOR DIALYSIS PATIEN TS. Pulpit Operator ID - ALMA WRAD, CHEST, 1 VIEW, NON [id number] 08:21:00Reason for exam:->eval pleural effusionsShould this be [...] unchanged. IMPRESSION:No significant interval change. Signed: Delaney Rajaneport Verified Date/Time: 04/06/2019 08:21:47 [id number] 07:38:00 Test Item Value Reference Range Interpretation Comments PHOSPHORUS (BEAKER) (test code = 3.7 mg/dL 2.3-4.7 604) Pulpit Operator ID - SONIA [id number] 07:38:00 Test Item Value Reference Range Interpretation Comments MAGNESIUM (BEAKER) (test code = 2.1 mg/dL 1.6-2.6 627) Pulpit Operator ID - SONIA FBASIC METABOLIC [id number] 07:38:00 Test Item Value Reference Range Interpretation [...] S NOT APPLICABLE FOR DIALYSIS PATIEN TS. Pulpit Operator ID - SONIA FCBC W/PLT COUNT & AUTO [id number] 07:35:00 Test Item Value Reference Range Interpretation [...] PERCENT (BEAKER) (test code = 2801) POCT-GLUCOSE [id number] 05:27:00 Test Item Value Reference Range Interpretation Comments POC-GLUCOSE METER 89 mg/dL 70-110 : TESTED A T [facility] 6720 (BEAKER) (test code = [place], 1538) 95175: Pulpit Operator/Techni aaron ID = [id number] for CANDIDO LEMUS BASIC METABOLIC [id number] 17:09:00 Test Item Value Reference Range Interpretation [...] S NOT APPLICABLE FOR DIALYSIS PATIEN TS. Pulpit Operator ID - ELISSA MPOCT-GLUCOSE [id number] 11:34:00 Test Item Value Reference Range Interpretation Comments POC-GLUCOSE METER 104 mg/dL 70-110 : TESTED A T [facility] 6720 (BEAKER) (test code = [place], 1538) 54664: Pulpit Operator/Techni aaron ID = [id number] for JIGNA ALEJANDRE BASIC METABOLIC [id number] 05:51:00 Test Item Value Reference Range Interpretation [...] S NOT APPLICABLE FOR DIALYSIS PATIEN TS. Pulpit Operator ID - ELISSA [id number] 05:43:00 Test Item Value Reference Range Interpretation Comments PHOSPHORUS (BEAKER) (test code = 3.5 mg/dL 2.3-4.7 604) Pulpit Operator ID - ELISSA [id number] 05:43:00 Test Item Value Reference Range Interpretation Comments MAGNESIUM (BEAKER) (test code = 1.9 mg/dL 1.6-2.6 627) Pulpit Operator ID - ELISSA MCBC W/PLT COUNT & AUTO [id number] 05:28:00 Test Item Value Reference Range Interpretation [...] = 2801) RAD, CHEST, 1 VIEW, NON [id number] 04:46:00Reason for exam:->eval pleural effusionsShould this be [...] Stable contours. Additional findings: None. Signed: Rashad Stilesort Verified Date/Time: 04/05/2019 04:46:52 POCT-GLUCOSE [id number] 23:55:00 Test Item Value Reference Range Interpretation Comments POC-GLUCOSE METER 103 mg/dL 70-110 : TESTED A T [facility] 6720 (BEAKER) (test code [facility], = 1538) 87120: Pulpit Operator/Techni aaron ID = [id number] for SUGU , SHEENAMOL FUNGUS CULTURE + [id number] 18:09:00 Test Item Value Reference Range Interpretation Comments CULTURE (BEAKER) A 2+ Ana albicans (test code = 1095) FUNGUS SMEAR No fungi seen (BEAKER) (test code = 1406) RAD, ABDOMEN/KUB, 1 VIEW [id number] 18:03:00Reason for exam:->TFFINAL REPORT Abdomen date 04/04/2019 Comment: Frontal view of the abdomen demonstrates a feeding tube present with tip noted in the descending duodenum. Signed: Tomasa Fossort Verified Date/Time: 04/04/2019 18:03:16 Reading Location: [facility] C013W Consult Reading Room XR abdomen / KUB 1 [id number] 18:03:00Interface, External Ris In - 04/04/2019 6:05 PM CSTFINAL REPORT Abdomen date04/04/2019 Comment: Frontal view of the abdomen demonstrates a feeding tube present with tip noted inthe descending duodenum. Signed: Tomasa Foss MDReport Verified Date/Time: 04/04/2019 18:03:16 Reading Location: [facility] C013W Consult [facility] [id number] 17:54:00 Test Item Value Reference Range Interpretation Comments POC-GLUCOSE METER 82 mg/dL 70-110 : TESTED A T [facility] 6720 (BEAKER) (test code = [place], 1538) 72086: Pulpit Operator/Techni aaron ID = [id number] for ISABELA LE BASIC METABOLIC [id number] 17:40:00 Test Item Value Reference Range Interpretation [...] S NOT APPLICABLE FOR DIALYSIS PATIEN TS. Pulpit Operator ID - BSRAD, ABDOMEN/KUB, 1 VIEW [id number] 15:46:00Reason for exam:- >korpak placementFINAL REPORT RAD, [...] Garcia Verified Date/Time: 04/04/2019 15:46:45 Reading Location: [facility] Radiology Reading Room POCT-GLUCOSE [id number] 12:21:00 Test Item Value Reference Range Interpretation Comments POC-GLUCOSE METER 94 mg/dL 70-110 : TESTED A T [facility] 6720 (BEAKER) (test code = [place], 1538) 61948: Pulpit Operator/Techni aaron ID = [id number] for SAND ERS, ISABELA RAD, CHEST, 1 VIEW, NON [id number] 08:56:00Reason for exam:->eval pleural effusion, CT in [...] Infante Verified Date/Time: 04/04/2019 08:56:32 Reading Location: [facility] Radiology Reading Room CBC W/PLT COUNT & [...] PERCENT (BEAKER) (test code = 2801) POCT-GLUCOSE [id number] 05:41:00 Test Item Value Reference Range Interpretation Comments POC-GLUCOSE METER 107 mg/dL 70-110 : TESTED A T [facility] 6720 (BEAKER) (test code = ILDA [place], 1538) 71794: Pulpit Operator/Techni aaron ID = [id number] for ASAEL BELTRANLYN [id number] 05:17:00 Test Item Value Reference Range Interpretation Comments PHOSPHORUS (BEAKER) (test code = 4.2 mg/dL 2.3-4.7 604) Pulpit Operator ID - ELISSA [id number] 05:17:00 Test Item Value Reference Range Interpretation Comments MAGNESIUM (BEAKER) (test code = 1.9 mg/dL 1.6-2.6 627) Pulpit Operator ID - ELISSA MBASIC METABOLIC [id number] 05:17:00 Test Item Value Reference Range Interpretation [...] S NOT APPLICABLE FOR DIALYSIS PATIEN TS. Pulpit Operator ID - ELISSA MPOCT-GLUCOSE [id number] 00:06:00 Test Item Value Reference Range Interpretation Comments POC-GLUCOSE METER 109 mg/dL 70-110 : TESTED A T [facility] 6720 (BEAKER) (test code = [facility] Enrike [facility], 1538) 88262: Pulpit Operator/Techni aaron ID = [id number] for DA ASAEL FLYNNLYN [id number] 20:00:00 Test Item Value Reference Range Interpretation Comments MAGNESIUM (BEAKER) 1.9 mg/dL 1.6-2.6 Specimen slightly (test code = 627) hemolyzed Pulpit Operator ID - BSPOCT-GLUCOSE [id number] 17:14:00 Test Item Value Reference Range Interpretation Comments POC-GLUCOSE METER 114 mg/dL 70-110 H : TESTED A T [facility] 6720 (BEAKER) (test code = [facility], 1538) 83480: Pulpit Operator/Techni aaron ID = [id number] for COLLIN ESCOBAR BASIC METABOLIC [id number] 16:17:00 Test Item Value Reference Range Interpretation [...] S NOT APPLICABLE FOR DIALYSIS PATIEN TS. Pulpit Operator ID - BSPOCT-GLUCOSE [id number] 12:20:00 Test Item Value Reference Range Interpretation Comments POC-GLUCOSE METER 108 mg/dL 70-110 : TESTED A T [facility] 6720 (BEAKER) (test code = [facility], 1538) 26617: Pulpit Operator/Techni aaron ID = [id number] for STEFANI FARMER POCT-GLUCOSE [id number] 06:08:00 Test Item Value Reference Range Interpretation Comments POC-GLUCOSE METER 96 mg/dL 70-110 : TESTED A T [facility] 6720 (BEAKER) (test code = [facility], 1538) 16915: Pulpit Operator/Techni aaron ID = [id number] for SUGU , ARIESL RAD, CHEST, 1 VIEW, NON [id number] 05:49:00Reason for exam:->chest tubesShould this be performed [...] effusions. There is no pneumothorax. Signed: Nakia [facility]inthe [facility] Verified Date/Time: 04/03/2019 05:49:51 [id number] 02:46:00 Test Item Value Reference Range Interpretation Comments PHOSPHORUS (BEAKER) (test code = 3.1 mg/dL 2.3-4.7 604) Pulpit Operator ID - SANDRA [id number] 02:46:00 Test Item Value Reference Range Interpretation Comments MAGNESIUM (BEAKER) (test code = 1.8 mg/dL 1.6-2.6 627) Pulpit Operator ID - SANDRA WBASIC METABOLIC [id number] 02:46:00 Test Item Value Reference Range Interpretation [...] S NOT APPLICABLE FOR DIALYSIS PATIEN TS. Pulpit Operator ID - SANDRA WCBC W/PLT COUNT & AUTO [id number] 02:35:00 Test Item Value Reference Range Interpretation [...] PERCENT (BEAKER) (test code = 2801) POCT-GLUCOSE [id number] 00:12:00 Test Item Value Reference Range Interpretation Comments POC-GLUCOSE METER 87 mg/dL 70-110 : [facility] 6720 (BEAKER) (test code = [place], 1538) 26343: Pulpit Operator/Techni aaron ID = [id number] for SUGU , SHEENAMOL [id number] 23:01:00 Test Item Value Reference Range Interpretation Comments PARTIAL THROMBOPLASTIN TIME 88.0 seconds 22.5-36.0 H (BEAKER) (test code = 760) BASIC METABOLIC [id number] 18:04:00 Test Item Value Reference Range Interpretation [...] S NOT APPLICABLE FOR DIALYSIS PATIEN TS. Pulpit Operator ID - [id number] 17:41:00 Test Item Value Reference Range Interpretation Comments PARTIAL THROMBOPLASTIN TIME 75.2 seconds 22.5-36.0 H (BEAKER) (test code = 760) POCT-GLUCOSE [id number] 17:38:00 Test Item Value Reference Range Interpretation Comments POC-GLUCOSE METER 100 mg/dL 70-110 : TESTED A T [facility] 6720 (Cint) (test code = [facility], 1538) [address]: Pulpit Operator/Techni aaron ID = [id number] for ELADIA WHELAN POCT-GLUCOSE [id number] 12:31:00 Test Item Value Reference Range Interpretation Comments POC-GLUCOSE METER 88 mg/dL 70-110 : TESTED A T [facility] 6720 (Cint) (test code = [facility] [employer] [facility], 1538) [address]: Pulpit Operator/Techni aaron ID = [id number] for ELADIA KEARNEY RAD, CHEST, 1 VIEW, NON [id number] 09:47:00Reason for exam:->naShould this be performed at the bedside?->YesFINAL REPORT Comparison: 04/01/2019 TECHNIQUE: Single view of the chest FINDINGS: Patchy interstitial opacities and small pleural effusions, right greater than left are stable. No gross pneumothorax. Interval removal of right internal jugular central line. Remaining support lines and tubes are stable. Signed: Aiden Willett MDReport Verified Date/Time: 04/02/2019 09:47:11 Reading Location: [facility] Radiology Reading Room 09:47 [id number] 08:29:00 Test Item Value Reference Range Interpretation Comments PARTIAL THROMBOPLASTIN TIME 41.5 seconds 22.5-36.0 H (BEAKER) (test code = 760) POCT-GLUCOSE [id number] 05:53:00 Test Item Value Reference Range Interpretation Comments POC-GLUCOSE METER 96 mg/dL 70-110 : TESTED A T [facility] 6720 (Cint) (test code = [place], 1538) [address]: Pulpit Operator/Techni aaron ID = [id number] for JACKSON BOLDEN [id number] 02:06:00 Test Item Value Reference Range Interpretation Comments PARTIAL THROMBOPLASTIN TIME 75.8 seconds 22.5-36.0 H (BEAKER) (test code = 760) [id number] 01:58:00 Test Item Value Reference Range Interpretation Comments PHOSPHORUS (BEAKER) (test code = 3.3 mg/dL 2.3-4.7 604) Pulpit Operator ID - [id number] 01:58:00 Test Item Value Reference Range Interpretation Comments MAGNESIUM (BEAKER) (test code = 1.8 mg/dL 1.6-2.6 627) Pulpit Operator ID - ASBASIC METABOLIC [id number] 01:58:00 Test Item Value Reference Range Interpretation [...] S NOT APPLICABLE FOR DIALYSIS PATIEN TS. Pulpit Operator ID - ASBLOOD GAS, [id number] 01:35:00 Test Item Value Reference Range Interpretation [...] 21.0 % CBC W/PLT COUNT & AUTO [id number] 01:35:00 Test Item Value Reference Range Interpretation [...] PERCENT (BEAKER) (test code = 2801) POCT-GLUCOSE [id number] 00:00:00 Test Item Value Reference Range Interpretation Comments POC-GLUCOSE METER 100 mg/dL 70-110 : TESTED A T [facility] 6720 (BEAKER) (test code [facility], = 1538) 637[address]: Pulpit Operator/Techni aaron ID = [id number] for SUGU ANNMOL BASIC METABOLIC [id number] 19:33:00 Test Item Value Reference Range Interpretation [...] S NOT APPLICABLE FOR DIALYSIS PATIEN TS. Pulpit Operator ID - [id number] 19:04:00 Test Item Value Reference Range Interpretation Comments PARTIAL THROMBOPLASTIN TIME 57.5 seconds 22.5-36.0 H (BEAKER) (test code = 760) POCT-GLUCOSE [id number] 18:18:00 Test Item Value Reference Range Interpretation Comments POC-GLUCOSE METER 105 mg/dL 70-110 : TESTED A T [facility] 6720 (BEAKER) (test code = [facility], 1538) 77249: Pulpit Operator/Techni aaron ID = [id number] for [place] LLIAMS, ELADIA POCT-GLUCOSE [id number] 11:54:00 Test Item Value Reference Range Interpretation Comments POC-GLUCOSE METER 90 mg/dL 70-110 : TESTED A T [facility] 6720 (BEAKER) (test code = [facility] Enrike [facility], 1538) 68038: Pulpit Operator/Techni aaron ID = [id number] for WILL IAMS, ELADIA [id number] 11:32:00 Test Item Value Reference Range Interpretation Comments PARTIAL THROMBOPLASTIN TIME 70.7 seconds 22.5-36.0 H (BEAKER) (test code = 760) RAD, CHEST, 1 VIEW, NON [id number] 10:46:00Reason for exam:->CT in placeShould this be [...] surgical changes.Additional findings: None. Signed: Yonathan Garcia Verified Date/Time: 04/01/2019 10:46:42 Reading Location: [facility] Radiology Reading Room Legionella [id number] 10:17:00 Test Item Value Reference Range Interpretation Comments Result (test code = No Legionella species 6463-4) [facility] [id number] 10:17:00 Test Item Value Reference Range Interpretation Comments CULTURE (BEAKER) No Legionella species (test code = 1095) isolated POCT-GLUCOSE [id number] 06:39:00 Test Item Value Reference Range Interpretation Comments POC-GLUCOSE METER 100 mg/dL 70-110 : TESTED A T [facility] 6720 (BEAKER) (test code [facility], = 1538) 99997: Pulpit Operator/Techni aaron ID = [id number] for SUGU , SHEENAMOL [id number] 04:13:00 Test Item Value Reference Range Interpretation Comments PARTIAL THROMBOPLASTIN TIME 108.7 seconds 22.5-36.0 H (BEAKER) (test code = 760) BLOOD GAS, [id number] 04:03:00 Test Item Value Reference Range Interpretation [...] (BEAKER) (test code = 1819) 21.0 % [id number] 03:53:00 Test Item Value Reference Range Interpretation Comments PHOSPHORUS (BEAKER) (test code = 3.9 mg/dL 2.3-4.7 604) Pulpit Operator ID - ELISSA [id number] 03:53:00 Test Item Value Reference Range Interpretation Comments MAGNESIUM (BEAKER) (test code = 2.1 mg/dL 1.6-2.6 627) Pulpit Operator ID - ELISSA MBASIC METABOLIC [id number] 03:53:00 Test Item Value Reference Range Interpretation [...] S NOT APPLICABLE FOR DIALYSIS PATIEN TS. Pulpit Operator ID - ELISSA MCBC W/PLT COUNT & AUTO [id number] 03:44:00 Test Item Value Reference Range Interpretation [...] PERCENT (BEAKER) (test code = 2801) POCT-GLUCOSE [id number] 00:02:00 Test Item Value Reference Range Interpretation Comments POC-GLUCOSE METER 87 mg/dL 70-110 : [facility] 6720 [facility] (test code = [facility], 1538) 69118: Pulpit Operator/Techni aaron ID = [id number] for SUGU , SHEENAMOL [id number] 22:40:00 Test Item Value Reference Range Interpretation Comments PARTIAL THROMBOPLASTIN TIME 43.8 seconds 22.5-36.0 H (BEAKER) (test code = 760) [id number] 20:55:00 Test Item Value Reference Range Interpretation Comments PARTIAL THROMBOPLASTIN TIME 115.9 seconds 22.5-36.0 H (BEAKER) (test code = 760) POCT-GLUCOSE [id number] 18:19:00 Test Item Value Reference Range Interpretation Comments POC-GLUCOSE METER 92 mg/dL 70-110 : [facility] 6720 [facility] (test code = [facility], 1538) 50175: Pulpit Operator/Techni aaron ID = [id number] for ELADIA KEARNEY [id number] 16:03:00Medical Cytology Report Case: [id number] Authorizing Provider: Jerald Bartlett Collected: 03/28/2019 Kimberly Whitney MD Ordering Location: [place] [address] ICU Received: 03/28/2019 1332 Pathologist: Lexus Robbins MD Specimen: Pleural PLEURAL FLUID (CYTOSPINS): - RARE REACTIVE MESOTHELIAL CELLS PRESENT IN A BACKGROUND OF ABUNDANT ACUTE INFLAMMATION Signing Pathologist Direct Phone Line: [phone] signed by Lexus Robbins MD on 03/31/2019 at 4:03 [id number] effusion; HFpEF, bioprosthetic valve, COPD, Afib, and chronic right pleural effusion who presented to OSH on 03/11 w/ respiratory failure and now bilateral pleural effusionsPLEURAL FLUID (LATERALITY NOT DESIGNATED)Received 20 ml dark orange fluidPrepared 4 cytospinsCollected: [id number]: [id number].[facility], Department of Pa thology, [address] [place] [address], [facility], [facility] of [facility]ology, [address] [place] [address], [facility], Department of Pathology, [address] [place] [address], Lksqvonk I 2019-03-31 14:43:00 Test Item Value Reference Range Interpretation Comments Troponin I (test code = 0.20 ng/mL 0-0.03 82249-4) DORI (test code = DORI) Troponin I [...] acidosis, acute neurological disease, and persistent tachyarrhythmia.Traceya pb [facility] - SONIA Lloyd Lab Interpretation (test Abnormal code = 21518-4) [facility] CenterTRHEATHN [id number] 14:43:00 Test Item Value Reference Range Interpretation [...] failure, acidosis, acute neurological disease, and persistent tachyarrhythmia.Pulpit Operator ID - SONIA OMPREHENSIVE METABOLIC [id number] 14:39:00 Test Item Value Reference Range Interpretation [...] S NOT APPLICABLE FOR DIALYSIS PATIEN TS. Pulpit Operator ID - SONIA [id number] 14:33:00 Test Item Value Reference Range Interpretation Comments PHOSPHORUS (BEAKER) (test code = 3.7 mg/dL 2.3-4.7 604) Pulpit Operator ID - SONIA [id number] 14:33:00 Test Item Value Reference Range Interpretation Comments MAGNESIUM (BEAKER) (test code = 2.1 mg/dL 1.6-2.6 627) Pulpit Operator ID - SONIA FBASIC METABOLIC [id number] 14:33:00 Test Item Value Reference Range Interpretation [...] S NOT APPLICABLE FOR DIALYSIS PATIEN TS. [id number] 14:31:00 Test Item Value Reference Range Interpretation [...] INR is2.5-3.5 for patients wiht mechanical heart valves.[id number] 14:31:00 Test Item Value Reference Range Interpretation Comments PARTIAL THROMBOPLASTIN TIME 68.3 seconds 22.5-36.0 H (BEAKER) (test code = 760) Lactic acid, [id number] 14:30:00 Test Item Value Reference Range Interpretation Comments Lactate, Venous (test code 1.7 mmol/L 0.5-2.2 = 2872) DORI (test code = DORI) Pulpit Operator ID - SONIA Prema Lab Interpretation (test Normal code = 23182-8) [facility] CenterLACT[facility] ACID, [id number] 14:30:00 Test Item Value Reference Range Interpretation Comments LACTATE BLOOD VENOUS (2) (BEAKER) 1.7 mmol/L 0.5-2.2 (test code = 2872) Pulpit Operator ID - SONIA LAGUERRED, CHEST, 1 VIEW, NON [id number] 12:14:00Reason for exam:->CT in placeShould this be [...] Maldonado Verified Date/Time: 03/31/2019 12:14:06 Reading Location: [facility] Mammo Reading Room POCT-GLUCOSE [id number] 12:02:00 Test Item Value Reference Range Interpretation Comments POC-GLUCOSE METER 97 mg/dL 70-110 : TESTED A T [facility] 6720 (BEAKER) (test code = [place], 1538) 5[address]: Pulpit Operator/Techni aaron ID = [id number] for WILL ELADIA BLUM RAD, ABDOMEN/KUB, 1 VIEW [id number] 11:36:00Reason for exam:->NGT placement FINAL REPORT RAD, ABDOMEN/KUB, 1 VIEW AP INDICATION: NGT placement COMPARISON: None TECHNIQUE: Limited portable radiograph of the lower chest and upper abdomen was acquired for purposes of evaluating nasogastric tube placement FINDINGS:Nasogastric tube tip overlies the stomach Signed: Yonathan Garciaort Verified Date/Time: 03/31/2019 11:36:59 Reading Location: [facility] Radiology Reading Room TROPONIN [id number] 10:05:00 Test Item Value Reference Range Interpretation Comments TROPONIN I (BEAKER) (test code = 0.25 ng/mL 0.00-0.03 397) Troponin I (TnI) levels [...] failure, acidosis, acute neurological disease, and persistent tachyarrhythmia.Pulpit Operator ID - SONIA [id number] 07:11:00 Test Item Value Reference Range Interpretation Comments PARTIAL THROMBOPLASTIN TIME 44.8 seconds 22.5-36.0 H (BEAKER) (test code = 760) BLOOD GAS, [id number] 06:56:00 Test Item Value Reference Range Interpretation [...] code = 1819) 40.0 % BASIC METABOLIC [id number] 06:08:00 Test Item Value Reference Range Interpretation [...] S NOT APPLICABLE FOR DIALYSIS PATIEN TS. Pulpit Operator ID - EMILIE LPOCT-GLUCOSE [id number] 05:52:00 Test Item Value Reference Range Interpretation Comments POC-GLUCOSE METER 89 mg/dL 70-110 : TESTED A T [facility] 6720 (BEAKER) (test code = [place], 1538) 27878: Pulpit Operator/Techni aaron ID = [id number] for EDISON CALDWELL [id number] 05:29:00 Test Item Value Reference Range Interpretation Comments PARTIAL THROMBOPLASTIN TIME 111.7 seconds 22.5-36.0 H (BEAKER) (test code = 760) [id number] 05:27:00 Test Item Value Reference Range Interpretation Comments PHOSPHORUS (BEAKER) (test code = 3.6 mg/dL 2.3-4.7 604) Pulpit Operator ID - EMILIE [id number] 05:27:00 Test Item Value Reference Range Interpretation Comments MAGNESIUM (BEAKER) (test code = 2.1 mg/dL 1.6-2.6 627) Pulpit Operator ANGELI PHAN LLACTIC ACID, [id number] 04:56:00 Test Item Value Reference Range Interpretation Comments LACTATE BLOOD VENOUS (2) (BEAKER) 1.8 mmol/L 0.5-2.2 (test code = 2872) Pulpit Operator ANGELI PHAN LCBC W/PLT COUNT & AUTO [id number] 04:41:00 Test Item Value Reference Range Interpretation [...] (BEAKER) (test code = 2801) BLOOD GAS, [id number] 04:30:00 Test Item Value Reference Range Interpretation [...] = 1819) 40.0 % CT, BRAIN, WITHOUT [id number] 04:20:00FINAL REPORT EXAM: CT, BRAIN, WITHOUT CONTRAST [...] is recommended for further characterization. Signed: Tomasa Luqueeport VerifiedDate/Time: 03/31/2019 04:20:24 CT brain without IV [id number] 04:20:00Interface, External Ris In - 03/31/2019 4:22 [...] is recommended for further characterization. Signed: Tomasa Luqueeport Verified Date/Time: 03/31/2019 04:20:24 Electronic ally signed by: TOMASA LUQUE MD on 03/31/2019 04:20 [facility] [id number] 02:38:00 Test Item Value Reference Range Interpretation Comments TROPONIN I (YELITZA) (test code = 0.22 ng/mL 0.00-0.03 397) [...] failure, acidosis, acute neurological disease, and persistent tachyarrhythmia.Pulpit Operator ID - LCBECKY LB-TYPE NATRIURETIC FACTOR (BNP)2019-03-31 02:23:00 Test Item Value Reference Range Interpretation Comments B-TYPE NATRIURETIC PEPTIDE 1761 pg/mL 0-100 H (SHAYLA) (test code = 700) Pulpit Operator ID - LCBECKY LLACTIC ACID, [id number] 02:14:00 Test Item Value Reference Range Interpretation Comments LACTATE BLOOD VENOUS (2) (YELITZA) 1.8 mmol/L 0.5-2.2 (test code = 2872) Pulpit Operator ID - LCBECKY LPOCT-GLUCOSE [id number] 00:30:00 Test Item Value Reference Range Interpretation Comments POC-GLUCOSE METER 94 mg/dL 70-110 : TESTED A T [facility] 6720 ([facility]) (test code = ILDA Calvert [facility], 1538) 34978: Pulpit Operator/Techni aaron ID = [id number] for OLENA Yañez EDISON CT, CHEST WITH IV CONTRAST- PE TEST [id number] 00:25:00FINAL REPORT Comparison: CT chest dated 03/17/2019 [...] Amy Hanson MDReport Verified Date/Time: 03/31/2019 00:25:44 [facility] for pulmonary [id number] 00:25:00Interface, External Ris In - 03/31/2019 12:29 [...] anterior eighth right rib. Signed: Amy Hanson Verified Date/Time: 03/31/2019 00:25:44 [facility]2020-02-02 21:46:00 Test Item Value Reference Range Interpretation Comments MAGNESIUM (BEAKER) (test code = 2.1 mg/dL 1.6-2.6 627) Pulpit Operator ID - KENNCOMPREHENSIVE METABOLIC [id number] 21:46:00 Test Item Value Reference Range Interpretation [...] S NOT APPLICABLE FOR DIALYSIS PATIEN TS. Pulpit Operator ID - NTPOperator ID - KAUSHIKNTROPONIN [id number] 21:23:00 Test Item Value Reference Range Interpretation [...] failure, acidosis, acute neurological disease, and persistent tachyarrhythmia.Pulpit Operator ID - [id number] 21:21:00 Test Item Value Reference Range Interpretation Comments PHOSPHORUS (BEAKER) (test code = 4.5 mg/dL 2.3-4.7 604) Pulpit Operator ID - NTPLACTIC ACID, [id number] 21:15:00 Test Item Value Reference Range Interpretation Comments LACTATE BLOOD VENOUS (2) (BEAKER) 4.5 mmol/L 0.5-2.2 H (test code = 2872) Pulpit Operator ID - NTPRAD, CHEST, 1 VIEW, NON [id number] 21:13:00Reason for exam:->cardiac arrestShould this be performed [...] Stable surgical changes.Additional findings: None. Signed: Amy Hansonepanni Verified Date/Time: 03/30/2019 21:13:13 POC- Calcium [id number] 20:57:00 Test Item Value Reference Range Interpretation Comments POC-Calcium Ionized 1.63 mmol/L 1.12-1.27 HH TESTED A T [facility] (test code = 1536) 6720 [facility] 7703 0 Lab Interpretation (test Abnormal code = 64285-4) [facility] CenterPOCT-[id number] 20:57:00 Test Item Value Reference Range Interpretation Comments POC-Hemoglobin (test code 9.5 g/dL 13-16.8 L TE STED AT [facility] = 1856) [address] [place] [address] [facility] 6720 [facility] 7703 0 Lab Interpretation (test Abnormal code = 09899-7) [facility] CenterPOCT-[id number] 20:57:00 Test Item Value Reference Range Interpretation Comments POC-Hematocrit (test code 28 % 40-50 L TE STED AT [facility] = 1857) [address] [place] [address] 7703 0 Lab Interpretation (test Abnormal code = 80007-6) [facility] CenterPOCT-CALCIUM [id number] 20:57:00 Test Item Value Reference Range Interpretation Comments POC-CALCIUM IONIZED 1.63 mmol/L 1.12-1.27 HH TESTED A T [place] [address] ([facility]) (test code = [facility] 1536) [address] [id number] 20:57:00 Test Item Value Reference Range Interpretation Comments POC-HEMATOCRIT 28 % 40-50 L TESTED AT [place] [address] ([facility]) (test code = [facility] [address] 1857) [id number] 20:57:00 Test Item Value Reference Range Interpretation Comments POC-HEMOGLOBIN 9.5 g/dL 13.0-16.8 L TESTED AT [place] [address] ([facility]) (test code = [facility] 1856) 86888OMVVCK AT [facility] [address] [place] [address] POC-Blood gases, [id number] 20:56:00 Test Item Value Reference Range Interpretation Comments Temp. Celsius-POC (test 36.1 code = 1834) FIO2-POC (test code = [address] [facility] 1835) [address] [place] [address] 7703 0 pH, Arterial-POC (test 7.320 7.350-7.450 [...] 1841) Lab Interpretation (test Abnormal code = 16207-3) [facility]-[id number] 20:56:00 Test Item Value Reference Range Interpretation Comments POC-Potassium (test code 4.1 meq/L 3.6-5.[address] [facility] = 1540) [address] [place], [place] [address] 0 Lab Interpretation (test Normal code = 63835-1) [facility]-[id number] 20:56:00 Test Item Value Reference Range Interpretation Comments POC-Sodium (test code = 147 meq/L 135-[address] [facility] 1542) [address] [place] [address] 7703 0 Lab Interpretation (test Normal code = 53933-5) [facility]-[id number] 20:56:00 Test Item Value Reference Range Interpretation Comments POC-Glucose (test code = 249 mg/dL 70-110 H [address]ENE [address] [facility] 1855) [address] [place], [place] [address] 0 Lab Interpretation (test Abnormal code = 05106-0) [facility]-BLOOD GASES, [id number] 20:56:00 Test Item Value Reference Range Interpretation Comments TEMP, CELSIUS-POC 36.1 (BEAKER) (test code = 1834) FIO2-POC (BEAKER) [address] [facility] 6720 (test code = 1835) [place] [address] PH, ARTERIAL-POC 7.320 7.350-7.450 L (BEAKER) (test [...] H ARTERIAL-POC (BEAKER) (test code = 1841) [id number] 20:56:00 Test Item Value Reference Range Interpretation Comments POC-SODIUM (BEAKER) 147 meq/L 135-148 TESTED A T [place] [address] (test code = 1542) [facility]EL [facility] [address] [id number]-[id number] 20:56:00 Test Item Value Reference Range Interpretation Comments POC-POTASSIUM 4.1 meq/L 3.6-5.5 TESTED AT [facility] 6720 (BEAKER) (test code [facility] [address] = 1540) [id number] 20:56:00 Test Item Value Reference Range Interpretation Comments POC-GLUCOSE (BEAKER) 249 mg/dL 70-[address] [facility] 67 (test code = 1855) DANIEL Sheikh [facility] [address] CBC W/PLT COUNT & AUTO [id number] 20:54:00 Test Item Value Reference Range Interpretation [...] H PERCENT (BEAKER) (test code = 2801) [id number] 18:34:00 Test Item Value Reference Range Interpretation Comments PARTIAL THROMBOPLASTIN TIME 74.5 seconds 22.5-36.0 H (BEAKER) (test code = 760) POCT-GLUCOSE [id number] 18:06:00 Test Item Value Reference Range Interpretation Comments POC-GLUCOSE METER 123 mg/dL 70-110 H : TESTED A T [facility] 6720 (BEAKER) (test code = [place], 1538) [address]: Pulpit Operator/Techni aaron ID = [id number] for VILLAR YES, CRYSTAL BASIC METABOLIC [id number] 16:18:00 Test Item Value Reference Range Interpretation [...] S NOT APPLICABLE FOR DIALYSIS PATIEN TS. Pulpit Operator ID - [id number] 12:36:00 Test Item Value Reference Range Interpretation Comments PARTIAL THROMBOPLASTIN TIME 80.4 seconds 22.5-36.0 H (BEAKER) (test code = 760) POCT-GLUCOSE [id number] 12:00:00 Test Item Value Reference Range Interpretation Comments POC-GLUCOSE METER 116 mg/dL 70-110 H : TESTED A T [facility] 6720 (BEAKER) (test code = ILDA Calvert [facility], 1538) [address]: Pulpit Operator/Techni aaron ID = [id number] for SA NDERS, ISABELA BLOOD [id number] 11:00:00 Test Item Value Reference Range Interpretation Comments CULTURE (BEAKER) (test No growth in 5 days code = 1095) BLOOD [id number] 11:00:00 Test Item Value Reference Range Interpretation Comments CULTURE (BEAKER) (test No growth in 5 days code = 1095) RAD, CHEST, 1 VIEW, NON [id number] 10:31:00Reason for exam:->CT in placeShould this be [...] MDReport Verified Date/Time: 03/30/2019 10:31:51 Reading Location: [address] Transitional Reading Room [id number] 06:59:00 Test Item Value Reference Range Interpretation Comments PARTIAL THROMBOPLASTIN TIME 53.3 seconds 22.5-36.0 H (BEAKER) (test code = 760) POCT-GLUCOSE [id number] 06:06:00 Test Item Value Reference Range Interpretation Comments POC-GLUCOSE METER 103 mg/dL 70-110 : TESTED A T [facility] 6720 (BEAKER) (test code = ILDA Calvert [facility], 1538) 408[address]: Pulpit Operator/Techni aaron ID = [id number] for SILVIO BARRETT [id number] 05:16:00 Test Item Value Reference Range Interpretation Comments PHOSPHORUS (BEAKER) (test code = 3.4 mg/dL 2.3-4.7 604) Pulpit Operator ID - EMILIE [id number] 05:16:00 Test Item Value Reference Range Interpretation Comments MAGNESIUM (BEAKER) (test code = 2.2 mg/dL 1.6-2.6 627) Pulpit Operator ID - EMILIE LBASIC METABOLIC [id number] 05:16:00 Test Item Value Reference Range Interpretation [...] S NOT APPLICABLE FOR DIALYSIS PATIEN TS. Pulpit Operator ID - PIAYA [id number] 05:13:00 Test Item Value Reference Range Interpretation Comments PARTIAL THROMBOPLASTIN TIME 118.9 seconds 22.5-36.0 H (BEAKER) (test code = 760) CBC W/PLT COUNT & AUTO [id number] 04:58:00 Test Item Value Reference Range Interpretation [...] PERCENT (BEAKER) (test code = 2801) POCT-GLUCOSE [id number] 00:28:00 Test Item Value Reference Range Interpretation Comments POC-GLUCOSE METER 108 mg/dL 70-110 : TESTED A T [facility] 6720 (BEAKER) (test code = [facility], 1538) [address]: Pulpit Operator/Techni aaron ID = [id number] for SILVIO BARRETT POCT-GLUCOSE [id number] 18:26:00 Test Item Value Reference Range Interpretation Comments POC-GLUCOSE METER 90 mg/dL 70-110 : TESTED A T [facility] 6720 (BEAKER) (test code = [facility] [employer] [facility], 1538) [address]: Pulpit Operator/Techni aaron ID = [id number] for MJ COLE ISABELA BASIC METABOLIC [id number] 12:56:00 Test Item Value Reference Range Interpretation [...] S NOT APPLICABLE FOR DIALYSIS PATIEN TS. Pulpit Operator ID - PIAYA LPOCT-GLUCOSE [id number] 12:30:00 Test Item Value Reference Range Interpretation Comments POC-GLUCOSE METER 109 mg/dL 70-110 : TESTED A [employer] 6720 (Cint) (test code = [employer] [facility], 1538) [address]: Pulpit Operator/Techni aaron ID = [id number] for SA NDERS, ISABELA RAD, CHEST, 1 VIEW, NON [id number] 09:49:00Reason for exam:->ETT, chest tubesShould this be [...] MDReport Verified Date/Time: 03/29/2019 09:49:18 Reading Location: [address] Transitional Reading Room POCT-GLUCOSE [id number] 06:12:00 Test Item Value Reference Range Interpretation Comments POC-GLUCOSE METER 115 mg/dL 70-110 H : TESTED A [employer] [facility] 6720 (Cint) (test code = Netscape [facility], 1538) [address]: Pulpit Operator/Techni aaron ID = [id number] for VAL KULKARNI BASIC METABOLIC [id number] 04:51:00 Test Item Value Reference Range Interpretation [...] S NOT APPLICABLE FOR DIALYSIS PATIEN TS. Pulpit Operator ID - PIAYA LCBC W/PLT COUNT & AUTO [id number] 04:44:00 Test Item Value Reference Range Interpretation [...] 0-1 PERCENT (BEAKER) (test code = 2801) [id number] 04:43:00 Test Item Value Reference Range Interpretation Comments PHOSPHORUS (BEAKER) (test code = 4.4 mg/dL 2.3-4.7 604) Pulpit Operator ID Sultana PLATTBECKY [id number] 04:43:00 Test Item Value Reference Range Interpretation Comments MAGNESIUM (BEAKER) (test code = 2.2 mg/dL 1.6-2.6 627) Pulpit Operator ID Sultana PHAN [id number] 04:39:00 Test Item Value Reference Range Interpretation Comments PARTIAL THROMBOPLASTIN TIME 83.9 seconds 22.5-36.0 H (BEAKER) (test code = 760) POCT-GLUCOSE [id number] 00:34:00 Test Item Value Reference Range Interpretation Comments POC-GLUCOSE METER 112 mg/dL 70-110 H : TESTED A T [facility] 6720 (BEAKER) (test code = [facility] [place], 1538) [address]: Pulpit Operator/Techni aaron ID = [id number] for VAL KULKARNI VANCOMYCIN LEVEL, [id number] 23:23:00 Test Item Value Reference Range Interpretation Comments VANCOMYCIN TROUGH (BEAKER) (test 17.0 ug/mL 10.0-20.0 code = 522) Pulpit Operator ID - [id number] 21:15:00 Test Item Value Reference Range Interpretation Comments PARTIAL THROMBOPLASTIN TIME 84.7 seconds 22.5-36.0 H (BEAKER) (test code = 760) POCT-GLUCOSE [id number] 17:46:00 Test Item Value Reference Range Interpretation Comments POC-GLUCOSE METER 110 mg/dL 70-110 : TESTED A T [facility] 6720 (BEAKER) (test code = [facility] [place], 1538) [address]: Pulpit Operator/Techni aaron ID = [id number] for SLIME COLEY BASIC METABOLIC [id number] 16:41:00 Test Item Value Reference Range Interpretation [...] S NOT APPLICABLE FOR DIALYSIS PATIEN TS. Pulpit Operator ID - AAHAMIDANG, DRAINAGE TUBE CHANGE (GASTRO, [...] blood loss: < 5 cc. Specimen: None. cloth boil off machine operator: Nato Dang MD. Assistant Boiler Operator: Lauren. Fluoroscopy Time: 0.5 min.Reference Air [...] removed over the guidewire. A new 8.5 Jamaican Cook multipurpose drainage catheter was advanced over [...] MDReport Verified Date/Time: 03/28/2019 14:57:26 Reading Location: [place] [address] Angio Body Reading Room IR Drainage Catheter [id number] 14:57:00Interface, External Ris In - 03/28/2019 2:59 PM CSTFINAL REPORT Fluoroscopic guided replacement of a right chest tube. History: Patient's right chest tube has been retracted and is poorly draining.. Modality: Fluoroscopy Sedation: None Anesthesia: Two percent Lidocaine without epinephrine. Approach: Existing right chest tube Estimated blood loss: < 5 cc. Specimen: None. cloth boil off machine operator: Nato Dang MD. Assistant Boiler Operator: Lauren. Fluoroscopy Time: 0.5 min.Reference Air [...] removed over the guidewire. A new 8.5 Jamaican Workable multipurpose drainage catheter wasadvanced over the guidewire [...] pleural pigtail drainage catheter. Signed: Nato Dang MDRepresearch psychiatric center Verified Date/Time: 03/28/2019 14:57:26 Reading Location: [facility] B1 P048 Angio Body Reading Room [facility] [id number] 14:39:00 Test Item Value Reference Range Interpretation Comments PARTIAL THROMBOPLASTIN TIME 77.6 seconds 22.5-36.0 H (BEAKER) (test code = 760) POCT-GLUCOSE [id number] 13:05:00 Test Item Value Reference Range Interpretation Comments POC-GLUCOSE METER 96 mg/dL 70-110 : TESTED A T [facility] 6720 (BEAKER) (test code = [place], 1538) [address]: Pulpit Operator/Techni aaron ID = [id number] for SLIME RAMAN RAD, CHEST, 1 VIEW, NON [id number] 06:59:00Reason for exam:->ETT, chest tubesShould this be [...] MDReport Verified Date/Time: 03/28/2019 06:59:41 Reading Location: [facility] Radiology Reading Room [id number] 06:54:00 Test Item Value Reference Range Interpretation Comments PARTIAL THROMBOPLASTIN TIME 36.3 seconds 22.5-36.0 H (BEAKER) (test code = 760) [id number] 05:09:00 Test Item Value Reference Range Interpretation Comments PARTIAL THROMBOPLASTIN TIME 111.4 seconds 22.5-36.0 H (BEAKER) (test code = 760) [id number] 05:05:00 Test Item Value Reference Range Interpretation Comments PHOSPHORUS (BEAKER) (test code = 5.0 mg/dL 2.3-4.7 H 604) Pulpit Operator ID - SANDRA [id number] 05:05:00 Test Item Value Reference Range Interpretation Comments MAGNESIUM (BEAKER) (test code = 2.2 mg/dL 1.6-2.6 627) Pulpit Operator ID - SANDRA WBASIC METABOLIC [id number] 05:05:00 Test Item Value Reference Range Interpretation [...] S NOT APPLICABLE FOR DIALYSIS PATIEN TS. Pulpit Operator ID - SANDRA WCBC W/PLT COUNT & AUTO [id number] 05:01:00 Test Item Value Reference Range Interpretation [...] (BEAKER) (test code = 2801) pH, body [id number] 03:46:00 Test Item Value Reference Range Interpretation Comments pH, Body Fluid 7.5 (test code = 2748-2) PH FLUID TYPE Body fluid Reference (test code = range:Reference 55765-7) ranges have not been established on thistype of flu id for this test. DORI (test code Performing Lab = DORI) *RYLEY [facility], [address] [place] [address] [place] [address] Pearl Kent MD, PhD [facility] CenterPO[facility] [id number] 00:25:00 Test Item Value Reference Range Interpretation Comments POC-GLUCOSE METER 114 mg/dL 70-110 H : TESTED A T [facility] 6720 (BEAKER) (test code = [place], 1538) [address]: Pulpit Operator/Techni aaron ID = [id number] for PRASHANTH FLYNN EDISON POCT-GLUCOSE [id number] 17:52:00 Test Item Value Reference Range Interpretation Comments POC-GLUCOSE METER 111 mg/dL 70-110 H : TESTED A T [facility] 6720 (BEAKER) (test code = [place], 1538) [address]: Pulpit Operator/Techni aaron ID = [id number] for ELADIA WHELAN BASIC METABOLIC [id number] 17:02:00 Test Item Value Reference Range Interpretation [...] S NOT APPLICABLE FOR DIALYSIS PATIEN TS. Pulpit Operator ID - [id number] 12:34:00 Test Item Value Reference Range Interpretation Comments PARTIAL THROMBOPLASTIN TIME 82.8 seconds 22.5-36.0 H (BEAKER) (test code = 760) Sputum Culture + Gram [id number] 11:50:00 Test Item Value Reference Range Interpretation Comments Result (test code = See comment 6463-4) Gram Stain Result No organisms seen (test code = 1123) DORI (test code = 2+ YeastNo Normal DORI) [facility]o [facility] [id number] 11:50:00 Test Item Value Reference Range Interpretation Comments CULTURE (BEAKER) (test See comment code = 1095) GRAM STAIN RESULT 4+ WBCs (BEAKER) (test code = 1123) GRAM STAIN RESULT 0-5 epithelial cells (BEAKER) (test code = 754810) GRAM STAIN RESULT No organisms seen (BEAKER) (test code = 168401) 2+ YeastNo Normal respiratory rigo presentPOCT-GLUCOSE [id number] 11:42:00 Test Item Value Reference Range Interpretation Comments POC-GLUCOSE METER 117 mg/dL 70-110 H : Pt. refu sed rpt tst: (BEAKER) (test code = TESTED AT [facility] 6756 1102) DANIEL [facility], [address]: Pulpit Operator/Techni aaron ID = [id number] for ELADIA WHELAN BLOOD [id number] 11:00:00 Test Item Value Reference Range Interpretation Comments CULTURE (BEAKER) (test No growth in 5 days code = 1095) BLOOD [id number] 11:00:00 Test Item Value Reference Range Interpretation Comments CULTURE (BEAKER) (test No growth in 5 days code = 1095) Adenosine Deaminase, [id number] 10:22:00 Test Item Value Reference Interpretation Comments [...] of thistest have b een determined [place] This test shouldnot be us ed for diagnosis witho ut confirmation by other medically estab lished means. DORI (test code = Performing Lab DORI) 15 [facility], [address] [facility] [place] [address] Pearl Kent MD, PhD Lab Interpretation Abnormal (test code = 35625-3) [facility], 1 VIEW, NON [id number] 06:18:00 Reason for exam:->ETT, chest tubesShould this [...] Signed: Tomasa Luque Verified Date/Time: 03/27/2019 06:18:48 [id number] 06:00:00 Test Item Value Reference Range Interpretation Comments PARTIAL THROMBOPLASTIN TIME 82.3 seconds 22.5-36.0 H (BEAKER) (test code = 760) BASIC METABOLIC [id number] 05:35:00 Test Item Value Reference Range Interpretation [...] S NOT APPLICABLE FOR DIALYSIS PATIEN TS. Pulpit Operator ID - ELISSA MSpecimen slightly [id number] 05:33:00 Test Item Value Reference Range Interpretation Comments PHOSPHORUS (BEAKER) (test code = 4.7 mg/dL 2.3-4.7 604) Pulpit Operator ID - ELISSA [id number] 05:33:00 Test Item Value Reference Range Interpretation Comments MAGNESIUM (BEAKER) (test code = 2.2 mg/dL 1.6-2.6 627) Pulpit Operator ID - ELISSA MCBC W/PLT COUNT & AUTO [id number] 05:19:00 Test Item Value Reference Range Interpretation [...] PERCENT (BEAKER) (test code = 2801) POCT-GLUCOSE [id number] 05:17:00 Test Item Value Reference Range Interpretation Comments POC-GLUCOSE METER 118 mg/dL 70-110 H : TESTED A T [facility] 6720 (BEAKER) (test code = DOROTACO Enrike [facility], 1538) [address]: Pulpit Operator/Techni aaron ID = [id number] for NEDA GARLAND [id number] 20:41:00 Test Item Value Reference Range Interpretation Comments PARTIAL THROMBOPLASTIN TIME 36.4 seconds 22.5-36.0 H (BEAKER) (test code = 760) Glucose Pleural [id number] 19:27:00 Test Item Value Reference Range Interpretation Comments Glucose, 29 mg/dL SAMPLE SLIGHTLY Pleural Fluid LIPEMIC.SAMPLE (test code = MODERATELY 2346-5) HEMOLYZED. Refe rence range approxima abundio that found in s joseph. DORI (test code Performing Lab = DORI) EZ [facility] [address] [place] [address] Alia Luna MD, PhD, SOTO [facility] CenterPOCT-GLUCOSE [id number] 18:31:00 Test Item Value Reference Range Interpretation Comments POC-GLUCOSE METER 97 mg/dL 70-110 : TESTED A T [facility] 6720 (BEAKER) (test code = [facility] Enrike [facility], 1538) [address]: Pulpit Operator/Techni aaron ID = [id number] for ISABELA LE BASIC METABOLIC [id number] 18:22:00 Test Item Value Reference Range Interpretation [...] S NOT APPLICABLE FOR DIALYSIS PATIEN TS. Pulpit Operator ID - BSSpecimen slightly ictericUrine [id number] 14:01:00 Test Item Value Reference Range Interpretation Comments Result (test code = 6463-4) No growth [id number] 13:23:00 Test Item Value Reference Range Interpretation Comments PARTIAL THROMBOPLASTIN TIME 40.6 seconds 22.5-36.0 H (BEAKER) (test code = 760) POCT-GLUCOSE [id number] 12:06:00 Test Item Value Reference Range Interpretation Comments POC-GLUCOSE METER 113 mg/dL 70-110 H : TESTED A T [facility] 6720 (BEAKER) (test code = ILDA Calvert [facility], 1538) [address]: Pulpit Operator/Techni aaron ID = [id number] for ISABELA STREET [id number] 10:59:00 Test Item Value Reference Range Interpretation Comments PARTIAL THROMBOPLASTIN TIME 61.4 seconds 22.5-36.0 H (BEAKER) (test code = 760) 2D Echo W/Doppler(CW/PW/Color)2019-03-26 08:34:44Ejection FractionSLEH ECHO HEARTLAB MKCKESSON CPACSInterface, External Ris In - 03/26/2019 8:35 AM C STTransthoracic Echocardiography Report (TTE) Demographics Patient Name JOHN DELUNA Date of Study 03/25/2019 Gender Male Visit Number [id number] Race Unknown Room Number 7102 Number Date of 1955 Referring Physician Jerald Christensen Age 63 year(s) Casting Room Helper Abimael Jimenez Interpreting Carlos Alberto Estrada MD [...] l/min LVOT CI: 2.95 l/min/m^2 Tricuspid ValveCHI [facility] HospitalPOCT-GLUCOSE METER 2019-03-26 06:53:00 Test Item Value Reference Range Interpretation Comments POC-GLUCOSE METER 112 mg/dL 70-110 H : [facility] 6720 (BEAKER) (test code = [place], 1538) [address]: Pulpit Operator/Techni aaron ID = [id number] for MO LC, FAUSTO RAD, CHEST, 1 VIEW, NON [id number] 05:01:00Reason for exam:->intubated w/ empyemaShould this be [...] Signed: Nakia Goldstein MDReportVerified Date/Time: 03/26/2019 05:01:34 [id number] 03:48:00 Test Item Value Reference Range Interpretation Comments PHOSPHORUS (BEAKER) (test code = 3.9 mg/dL 2.3-4.7 604) Pulpit Operator ID - ELISSA [id number] 03:48:00 Test Item Value Reference Range Interpretation Comments MAGNESIUM (BEAKER) (test code = 2.1 mg/dL 1.6-2.6 627) Pulpit Operator ID - ELISSA MBASIC METABOLIC [id number] 03:48:00 Test Item Value Reference Range Interpretation [...] S NOT APPLICABLE FOR DIALYSIS PATIEN TS. Pulpit Operator ID - ELISSA MSpecimen slightly [id number] 03:23:00 Test Item Value Reference Range Interpretation Comments PARTIAL THROMBOPLASTIN TIME 98.7 seconds 22.5-36.0 H (BEAKER) (test code = 760) BLOOD GAS, [id number] 03:22:00 Test Item Value Reference Range Interpretation [...] 30.0 % CBC W/PLT COUNT & AUTO [id number] 03:14:00 Test Item Value Reference Range Interpretation [...] PERCENT (BEAKER) (test code = 2801) POCT-GLUCOSE [id number] 00:13:00 Test Item Value Reference Range Interpretation Comments POC-GLUCOSE METER 115 mg/dL 70-110 H : TESTED A T [facility] 6720 (BEAKER) (test code = [place], 1538) [address]: Pulpit Operator/Techni aaron ID = [id number] for Barbara Grigsby BASIC METABOLIC [id number] 20:31:00 Test Item Value Reference Range Interpretation [...] S NOT APPLICABLE FOR DIALYSIS PATIEN TS. Pulpit Operator ID - BSSpecimen slightly ictericTriglycerides, Pleural [id number] 18:39:00 Test Item Value Reference Range Interpretation Comments TRIGLYCERIDES, 35 mg/dL See Note: Reference PLEURAL FLUID Range:CHYLOUS: (test code = >110NONCHYLOUS: 9619-8) <50SAMPLE SLIGH TLY LIPEMIC.SAMPLE MODERATELY HEMOLYZED. DORI (test code = Performing Lab DORI) EZ [facility] [address] [place] [address] Alia Luna MD, PhD, SOTO [facility] CenterCT, CHEST, WITHOUT [id number] 18:26:00FINAL REPORT CT of the Chest, abdomen [...] MDReport Verified Date/Time: 03/25/2019 18:26:29 Reading Location: [facility] B1 C013Y CT Body Reading Room CT, [id number] 18:26:00FINAL REPORT CT of the Chest, abdomen [...] abscess.5. Ascending thoracic aortic aneurysm. Signed: Tomasa Fosseport Verified Date/Time: 03/25/2019 18:26:29 Reading Location: [facility] B1 C013Y CT Body Reading Room CT abdomen/pelvis without iv [id number] 18:26:00Interface, External Ris In - 03/25/2019 6:29 [...] MDReport Verified Date/Time: 03/25/2019 18:26:29 Reading Location: [facility] B1 C013Y CT Body Reading Room Electronically signed by: TOMASA FOSS M.D.on 03/25/2019 06:26 [facility] [id number] 18:26:00Interface, External Ris In - 03/25/2019 6:29 [...] MDReport Verified Date/Time: 03/25/2019 18:26:29 Reading Location: [facility] C0Y CT Body Reading Room Electronically signed by: TOMASA FOSS M.D.on 03/25/2019 06:26 [facility] [id number] 18:22:00 Test Item Value Reference Range Interpretation Comments POC-GLUCOSE METER 95 mg/dL 70-110 : TESTED A T [facility] 6720 (BEAKER) (test code = DOROTAJAVI Calvert [facility], 1538) [address]: Pulpit Operator/Techni aaron ID = [id number] for ISABELA LE Lactate Dehydrogenase (LD), Pleural [id number] 18:06:00 Test Item Value Reference Interpretation Comments Range Lactate >1300 See Note: U/L Reference Dehydrogenase (LD), Range:TR ANSUDATE: Pleural Fluid (test <113EXUD ATE: code = 38812-6) >113SAMPLE S LIGHTLY LIPEMIC.SAMPLE MODERATELY HEMOLYZED.This fluid sample was rece ived hemolyzed in e laboratory. Jeana n minimalhemolysi s causes signific ant increase in LD due to high levels of this enzymein red ce lls. Please interpre t result with caution.RESULTS CONFIRMED BY RE PEAT ANALYSIS. DORI (test code = Performing Lab DORI) EZ [facility] [address] [place] [address] Alia Luna MD, PhD, SOTO [facility] CenterRAD, CHEST, 1 VIEW, NON [id number] 16:20:00 Reason for exam:->Central Line PlacementShould this [...] MDReport Verified Date/Time: 03/25/2019 16:20:19 Reading Location: [address] Consult Reading Room [id number] 15:56:00 Test Item Value Reference Range Interpretation Comments PARTIAL THROMBOPLASTIN TIME 83.0 seconds 22.5-36.0 H (BEAKER) (test code = 760) BRONCHIAL CULTURE + GRAM [id number] 12:23:00 Test Item Value Reference Range Interpretation Comments CULTURE (BEAKER) See comment (test code = 1095) GRAM STAIN RESULT 4+ WBCs (BEAKER) (test code = 1123) GRAM STAIN RESULT <1+ yeast with (BEAKER) (test code pseudohyphae = 239168) 2+ Yeast with feetNo Normal respiratory rigo [...] S NOT APPLICABLE FOR DIALYSIS PATIEN TS. Pulpit Operator ID - LENNY MCGREGOROOD GAS, [id number] 12:00:00 Test Item Value Reference Range Interpretation [...] (test code = 1819) 30.0 % POCT-GLUCOSE [id number] 11:51:00 Test Item Value Reference Range Interpretation Comments POC-GLUCOSE METER 114 mg/dL 70-110 H : [facility] 6720 (BEAKER) (test code = ILDA Calvert [facility], 1538) [address]: Pulpit Operator/Techni aaron ID = [id number] for SA NDERS, ISABELA BODY FLUID CULTURE + GRAM [id number] 10:54:00 Test Item Value Reference Range Interpretation Comments CULTURE (BEAKER) (test code No growth = 1095) GRAM STAIN RESULT (BEAKER) 2+ WBCs (test code = 1123) GRAM STAIN RESULT (BEAKER) No organisms seen (test code = 15197) BODY FLUID CULTURE + GRAM [id number] 10:54:00 Test Item Value Reference Range Interpretation Comments CULTURE (BEAKER) (test code No growth = 1095) GRAM STAIN RESULT (BEAKER) 1+ WBCs (test code = 1123) GRAM STAIN RESULT (BEAKER) No organisms seen (test code = 39585) Urinalysis w/Microscopic + Reflex to [id number] 10:03:00 Test Item Value Reference Range Interpretation Comments Color, UA (test code = Yellow 5778-6) Clarity, UA (test code = Hazy 5767-9) Specific [place], UA (test 1.018 1.001-1.035 code = 5811-5) pH, UA (test code = 5.5 5.0-8.0 5803-2) Protein, UA (test code = 50 mg/dL Negative A 55643-1) Glucose, UA (test code = Negative Negative 365) Ketones, UA (test code = Negative Negative 2514-8) Bilirubin, UA (test code = Negative Negative 25602-0) Blood, UA (test code = Small Negative A 88035-6) Nitrite, UA (test code = Negative Negative 5802-4) Leukocytes, UA (test code Large Negative A = 5799-2) Urobilinogen, UA (test 6.0 mg/dL 0.2-1 H code = 67176-2) RBC, UA (test code = <1 /HPF 78357-1) WBC, UA (test code = 54 /HPF 5821-4) Bacteria, UA (test code = Few 30441-1) Mucus (test code = 8247-9) Few Squam Epithel, UA (test <1 /HPF code = 27895-0) Hyaline Casts, UA (test 1 /LPF code = 54255-4) Specimen Source (test code = 2795) DORI (test code = DORI) Pulpit Operator ID - [auto]Pulpit Operator ID - ramya Lab Interpretation (test Abnormal code = 84081-7) [facility] Center[facility]/ REFLEX URINE [id number] 10:03:00 Test Item Value Reference Range Interpretation [...] /LPF 514) SOURCE(BEAKER) (test code = 2795) Pulpit Operator ID - [auto]Pulpit Operator ID - [id number] 09:58:00 Test Item Value Reference Range Interpretation Comments PARTIAL THROMBOPLASTIN TIME 83.1 seconds 22.5-36.0 H (BEAKER) (test code = 760) BLOOD [id number] 07:00:00 Test Item Value Reference Range Interpretation Comments CULTURE (BEAKER) (test No growth in 5 days code = 1095) RAD, CHEST, 1 VIEW, NON [id number] 06:48:00Reason for exam:->intubated w/ empyemaShould this be [...] surgical changes.Additional findings: None. Signed: Tomasa Luque [facility] Verified Date/Time: 03/25/2019 06:48:46 POCT-GLUCOSE [id number] 06:17:00 Test Item Value Reference Range Interpretation Comments POC-GLUCOSE METER 101 mg/dL 70-110 : TESTED A T [facility] 6720 (BEAKER) (test code DANIEL [facility], = 1538) [address]: Pulpit Operator/Techni aaron ID = [id number] for JACKSON BOLDEN CBC W/PLT COUNT & AUTO [id number] 04:23:00 Test Item Value Reference Range Interpretation [...] PERCENT (BEAKER) (test code = 2801) BLOOD [id number] 04:02:00 Test Item Value Reference Range Interpretation Comments CULTURE (BEAKER) (test No growth in 5 days code = 1095) BASIC METABOLIC [id number] 03:59:00 Test Item Value Reference Range Interpretation [...] S NOT APPLICABLE FOR DIALYSIS PATIEN TS. Pulpit Operator ID - ELISSA MSpecimen slightly [id number] 03:57:00 Test Item Value Reference Range Interpretation Comments PHOSPHORUS (BEAKER) (test code = 2.8 mg/dL 2.3-4.7 604) Pulpit Operator ID - ELISSA [id number] 03:57:00 Test Item Value Reference Range Interpretation Comments MAGNESIUM (BEAKER) (test code = 2.0 mg/dL 1.6-2.6 627) Pulpit Operator ID - ELISSA [id number] 03:30:00 Test Item Value Reference Range Interpretation Comments PARTIAL THROMBOPLASTIN TIME 63.6 seconds 22.5-36.0 H (BEAKER) (test code = 760) POCT-GLUCOSE [id number] 00:15:00 Test Item Value Reference Range Interpretation Comments POC-GLUCOSE METER 110 mg/dL 70-110 : TESTED A T [facility] 6720 (BEAKER) ([facility], = 1538) [address]: Pulpit Operator/Techni aaron ID = [id number] for SUGU , SHEENAMOL [id number] 21:11:00 Test Item Value Reference Range Interpretation Comments PARTIAL THROMBOPLASTIN TIME 68.8 seconds 22.5-36.0 H (BEAKER) (test code = 760) BASIC METABOLIC [id number] 21:09:00 Test Item Value Reference Range Interpretation [...] S NOT APPLICABLE FOR DIALYSIS PATIEN TS. Pulpit Operator ID - JOSE Sanchezimecely slightly ictericRAD, ABDOMEN/KUB, 1 VIEW AP 2019-03-24 19:29:00Reason for exam:->NGT fell outAddendum BeginsREPORT STATUS:A Two views were obtained. Signed: Edwin Salazar MDReport Verified Date/Time: 03/24/2019 19:29:02 Reading Location: [address] Consult Reading RoomAddendum EndsFINAL REPORT Abdomen. [...] MDReport Verified Date/Time: 03/24/2019 19:24:17 Reading Location: [address] Consult Reading Room POCT- GLUCOSE [id number] 18:19:00 Test Item Value Reference Range Interpretation Comments POC-GLUCOSE METER 97 mg/dL 70-110 : TESTED A T [facility] 6720 (Cint) (test code = ILDA Calvert [facility], 1538) [address]: Pulpit Operator/Techni aaron ID = [id number] for SAND ERS, ISABELA RAD, CHEST, 1 VIEW, NON [id number] 18:11:00Reason for exam:->Chest tube placement, possible dislodgementShould [...] MDReport Verified Date/Time: 03/24/2019 18:11:57 Reading Location: [facility] B1 C013W Consult Reading Room BODY FLUID CULTURE + GRAM [id number] 16:09:00 Test Item Value Reference Range Interpretation Comments CULTURE (BEAKER) (test No growth code = 1095) GRAM STAIN RESULT 1+ White blood cells (BEAKER) (test code = seen 1123) GRAM STAIN RESULT No organisms seen (BEAKER) (test code = 79743) BRONCHIAL CULTURE + GRAM [id number] 14:05:00 Test Item Value Reference Range Interpretation Comments CULTURE (BEAKER) (test code No growth = 1095) GRAM STAIN RESULT (BEAKER) <1+ WBCs (test code = 1123) GRAM STAIN RESULT (BEAKER) No organisms seen (test code = 55269) BASIC METABOLIC [id number] 13:09:00 Test Item Value Reference Range Interpretation [...] S NOT APPLICABLE FOR DIALYSIS PATIEN TS. Pulpit Operator ID - SONIA [id number] 13:04:00 Test Item Value Reference Range Interpretation Comments PARTIAL THROMBOPLASTIN TIME 58.9 seconds 22.5-36.0 H (BEAKER) (test code = 760) EEG EXTENDED MONITORING, 40-60 [id number] 12:32:00For STAT EEG- after 5 PM weekdays, weekends and holidays, page the on-call EEG TechReason for exam:-& gt;Concern for Subclinical StatusShould this be performed at the bedside?->YesDate(s) of EE03/24/2019 DATE OF REPORT: 03/24/2019ACC: [id number] Number: [id number] Location: Inpatient ICUStart time: 03/24/2019 10:42Stop time: 03/24/2019 11:23ICD-10: R56.9 CPT Code: [address] HISTORY: 63 y.o. male with hypertension, diastolic heart failure, chronic kidney disease who was transferred to [facility] for effusions and remains altered [...] inflammation, aftermath of earlier seizure activity, other SVP MONETIZATION insult, or toxic-metabolic derangements. An EEG without epileptiform discharges does not exclude the possibility of epilepsy. If the clinical suspicion of epilepsy remains, consider additional EEG recordings. Nando Metz MDNeurophysiology Fellow Taya Martinez M.D., FACNS, FAAN, FAESProfessor of Neurology, [facility] HospitalDirector, [facility] Epilepsy CenterJohn Saab Neurophys[facility] at [place], [place] EXTENDED MONITORING 40 - 60 [id number] 12:32:00Interface, External Ris In - 03/24/2019 12:32 PM CSTDate(s) of EE03/24/2019 DATE OF REPORT: 03/24/2019ACC: [id number] Number: [id number] Location: Inpatient ICUStart time: 03/24/2019 10:42Stoptime: 03/24/2019 11:23ICD-10: R56.9 CPT Code: 75800 HISTORY: 63 y.o. male with hypertension, diastolic heart failure, chronic kidney disease who was transferred to [facility] for effusions and remains altered [...] inflammation, aftermath of earlier seizure activity, other SVP MONETIZATION insult, or toxic-metabolic derangements. An EEG without epileptiform discharges does not exclude the possibility of epilepsy. If the clinical suspicion of epilepsy remains, consider additional EEG recordings. Nando Metz MDNeurophysiology Fellow Taya Martinez M.D., [facility], FAAN, FAESProfessor of Neurology, [facility] HospitalDirector, [facility] Epilepsy CenterJohn Saab Neurophys[facility] at [place], [place] [facility] CenterPOCT-GLUCOSE [id number] 12:29:00 Test Item Value Reference Range Interpretation Comments POC-GLUCOSE METER 109 mg/dL 70-110 : TESTED A T [facility] 6720 (BEAKER) (test code = Netscape [facility], 1538) [address]: Pulpit Operator/Techni aaorn ID = [id number] for [address] BLOOD GAS, [id number] 12:11:00 Test Item Value Reference Range Interpretation [...] (test code = 1819) 30.0 % POCT-GLUCOSE [id number] 06:09:00 Test Item Value Reference Range Interpretation Comments POC-GLUCOSE METER 122 mg/dL 70-110 H : TESTED A T [facility] 6720 (BEAKER) (test code = Netscape [facility], 1538) 83333: Pulpit Operator/Techni aaron ID = [id number] for EDISON BELTRAN BLOOD GAS, [id number] 05:35:00 Test Item Value Reference Range Interpretation [...] (BEAKER) (test code = 1819) 30.0 % [id number] 05:09:00 Test Item Value Reference Range Interpretation Comments PHOSPHORUS (BEAKER) (test code = 3.2 mg/dL 2.3-4.7 604) Pulpit Operator ID - SANDRA [id number] 05:09:00 Test Item Value Reference Range Interpretation Comments MAGNESIUM (BEAKER) (test code = 1.9 mg/dL 1.6-2.6 627) Pulpit Operator ID Sultana FLORES WBASIC METABOLIC [id number] 05:09:00 Test Item Value Reference Range Interpretation [...] I S NOT APPLICABLE FOR DIALYSIS PATIEN TSGogo Pulpit Operator ID - SANDRA WSpecimen slightly [id number] 04:59:00 Test Item Value Reference Range Interpretation Comments PARTIAL THROMBOPLASTIN TIME 61.1 seconds 22.5-36.0 H (BEAKER) (test code = 760) CBC W/PLT COUNT & AUTO [id number] 04:52:00 Test Item Value Reference Range Interpretation [...] = 2801) RAD, CHEST, 1 VIEW, NON [id number] 03:57:00Reason for exam:->intubated w/ empyemaShould this be [...] MDReport Verified Date/Time: 03/24/2019 03:57:49 VANCOMYCIN LEVEL, [id number] 01:53:00 Test Item Value Reference Range Interpretation Comments VANCOMYCIN TROUGH (BEAKER) (test 17.9 ug/mL 10.0-20.0 code = 522) Pulpit Operator ID - SANDRA WCT, BRAIN, WITHOUT [id number] 01:31:00FINAL REPORT EXAM: CT head without contrast. [...] for acute intracranial pathology persists. Signed: Nakia Goldsteineport Verified Date/Time: 03/24/2019 01:31:09 POCT-GLUCOSE [id number] 00:17:00 Test Item Value Reference Range Interpretation Comments POC-GLUCOSE METER 122 mg/dL 70-110 H : TESTED A T [facility] 6720 (BEAKER) (test code = [facility], 1538) 927[address]: Pulpit Operator/Techni aaron ID = [id number] for SATISH BELTRANN BASIC METABOLIC [id number] 21:04:00 Test Item Value Reference Range Interpretation [...] S NOT APPLICABLE FOR DIALYSIS PATIEN TS. Pulpit Operator ID - Nicholas milton ictericBASIC METABOLIC [id number] 16:30:00 Test Item Value Reference Range Interpretation [...] S NOT APPLICABLE FOR DIALYSIS PATIEN TS. Pulpit Operator ID - ALMA [facility]PAT[facility] FUNCTION [id number] 16:22:00 Test Item Value Reference Range Interpretation [...] (test code = 7 U/L 6-55 347) Pulpit Operator ID - ALMA [id number] 16:05:00 Test Item Value Reference Range Interpretation Comments AMMONIA (BEAKER) (test code = 348) 29 mol/L 18-72 Pulpit Operator ID - ALMA HALEYRSA [id number] 11:27:00 Test Item Value Reference Range Interpretation Comments CULTURE (BEAKER) (test code No MRSA isolated = 1095) Manual [id number] 10:18:00 Test Item Value Reference Range Interpretation [...] Ovalocytes (test code = 1+ few 477) Farner Cells (test code = 1+ few 474) Artifact (test code = Present 3432) Platelet Conc (test code Adequate = 3438) DORI (test code = DORI) Pulpit Operator ID - Mariela OverholtUser comments: Slide comments: Lab Interpretation (test Abnormal code = 25962-1) [facility] W/PLT COUNT & AUTO [id number] 10:18:00 Test Item Value Reference Range Interpretation [...] CONCENTRATION Adequate (CELLAVISION)(BEAKER) (test code = 3438) Pulpit Operator ID Sultana Sierra OverholtUser comments: Slide comments:SPIN/CONCENTRATION [id number] 10:03:00 Test Item Value Reference Range Interpretation Comments CONCENTRATION CHARGED (BEAKER) (test Done code = 2657) SPIN/CONCENTRATION [id number] 10:03:00 Test Item Value Reference Range Interpretation Comments CONCENTRATION CHARGED (BEAKER) (test Done code = 2657) SPIN/CONCENTRATION [id number] 10:03:00 Test Item Value Reference Range Interpretation Comments CONCENTRATION CHARGED (BEAKER) (test Done code = 2657) [id number] 07:00:00 Test Item Value Reference Range Interpretation Comments PARTIAL THROMBOPLASTIN TIME 70.1 seconds 22.5-36.0 H (BEAKER) (test code = 760) [id number] 06:46:00 Test Item Value Reference Range Interpretation Comments PHOSPHORUS (BEAKER) (test code = 2.8 mg/dL 2.3-4.7 604) Pulpit Operator ID - SANDRA [id number] 06:46:00 Test Item Value Reference Range Interpretation Comments MAGNESIUM (BEAKER) (test code = 1.9 mg/dL 1.6-2.6 627) Pulpit Operator ID - SANDRA WBASIC METABOLIC [id number] 06:46:00 Test Item Value Reference Range Interpretation [...] S NOT APPLICABLE FOR DIALYSIS PATIEN TS. Pulpit Operator ID - SANDRA SEWELLpecimecely slightly ictericBLOOD GAS, [id number] 06:18:00 Test Item Value Reference Range Interpretation [...] (test code = 1819) 30.0 % POCT-GLUCOSE [id number] 05:36:00 Test Item Value Reference Range Interpretation Comments POC-GLUCOSE METER 122 mg/dL 70-110 H : TESTED A T [facility] 6720 (BEAKER) (test code = [place], 1538) 69[address]: Pulpit Operator/Techni aaron ID = [id number] for EDISON BELTRAN [id number] 00:47:00 Test Item Value Reference Range Interpretation Comments PARTIAL THROMBOPLASTIN TIME 62.9 seconds 22.5-36.0 H (BEAKER) (test code = 760) POCT-GLUCOSE [id number] 00:39:00 Test Item Value Reference Range Interpretation Comments POC-GLUCOSE METER 131 mg/dL 70-110 H : TESTED A T [facility] 6720 (BEAKER) (test code = ILDA Calvert [facility], 1538) 82407: Pulpit Operator/Techni aaron ID = [id number] for EDISON BELTRAN BASIC METABOLIC [id number] 20:51:00 Test Item Value Reference Range Interpretation [...] S NOT APPLICABLE FOR DIALYSIS PATIEN TS. Pulpit Operator ID - ELISSA Hendricksonecimen slightly ictericPT/[id number] 17:40:00 Test Item Value Reference Range Interpretation [...] mechanical heart valves.BODY FLUID CELL COUNT WITH [id number] 17:31:00 Test Item Value Reference Range Interpretation Comments APPEARANCE FLUID (BEAKER) (test Bloody Clear A code = 510) COLOR FLUID (BEAKER) (test code Red Colorless, Straw A = 511) RBC FLUID (BEAKER) (test code = 71335 /cu mm <=1 H 513) ADJUSTED WBC [...] = 2873) Body fluid cell count with [id number] 17:22:00 Test Item Value Reference Range Interpretation Comments Appearance (test code = 9335-1) Bloody Clear A Color (test code = 6824-7) Red Colorless, Straw A RBCs (test code = 15621-7) 11631 <=1 /cu mm H Adjusted WBC Count (test code = 40772 <=5 /cu mm H 79110-8) Lining Cells (test code = 19248-6) 364 <=1 /cu mm H % Segs (test code = 25803-5) 85 % % Lymphs (test code = 54211-7) 4 % % Monos (test code = 51050-3) 10 % % Eos (test code = 07471-4) 1 % % Baso (test code = 93406-2) 0 % Container Body Fluid (test code = EDTA Tube 2873) Lab Interpretation (test code = Abnormal 17727-4) [facility] CenterB[facility] FLUID CE[facility] COUNT WITH [id number] 17:22:00 Test Item Value Reference Range Interpretation Comments APPEARANCE FLUID (BEAKER) (test Bloody Clear A code = 510) COLOR FLUID (BEAKER) (test code Red Colorless, Straw A = 511) RBC FLUID (BEAKER) (test code = 67571 /cu mm <=1 H 513) ADJUSTED WBC FLUID (BEAKER) 34374 /cu mm <=5 H (test code = [...] code = 2873) SPUTUM CULTURE + GRAM [id number] 13:08:00 Test Item Value Reference Range Interpretation Comments CULTURE (BEAKER) (test See comment code = 1095) GRAM STAIN RESULT 2+ WBCs (BEAKER) (test code = 1123) GRAM STAIN RESULT 0-5 epithelial cells (BEAKER) (test code = 392291) GRAM STAIN RESULT No organisms seen (BEAKER) (test code = 028685) <1+ YeastNo Normal respiratory rigo presentBASIC METABOLIC [id number] 10:04:00 Test Item Value Reference Range Interpretation [...] S NOT APPLICABLE FOR DIALYSIS PATIEN TS. Pulpit Operator ID - ELISSA MSpecimen slightly [id number] 10:02:00 Test Item Value Reference Range Interpretation Comments PARTIAL THROMBOPLASTIN TIME 35.5 seconds 22.5-36.0 (BEAKER) (test code = 760) 6 hours after starting heparin infusion and as indicated per sliding scaleRAD, CHEST, 1 VIEW, NON [id number] 09:09:00Reason for exam:->intubated, bilateral chest tubesShould this [...] MDReport Verified Date/Time: 03/22/2019 09:09:11 Reading Location: [address] Ortho Consult Reading Room POCT-GLUCOSE [id number] 06:06:00 Test Item Value Reference Range Interpretation Comments POC-GLUCOSE METER 105 mg/dL 70-110 : TESTED A T [facility] 6720 (BEAKER) (test code = ILDA Calvert [facility], 1538) 70268: Pulpit Operator/Techni aaron ID = [id number] for EDISON BELTRAN VANCOMYCIN LEVEL, [id number] 02:59:00 Test Item Value Reference Range Interpretation Comments VANCOMYCIN TROUGH (BEAKER) (test 15.2 ug/mL 10.0-20.0 code = 522) Pulpit Operator ID - JOSE [id number] 02:42:00 Test Item Value Reference Range Interpretation Comments PHOSPHORUS (BEAKER) (test code = 3.8 mg/dL 2.3-4.7 604) Pulpit Operator ID - JOSE [id number] 02:42:00 Test Item Value Reference Range Interpretation Comments MAGNESIUM (BEAKER) (test code = 2.0 mg/dL 1.6-2.6 627) Pulpit Operator ID - JOSE EBASIC METABOLIC [id number] 02:42:00 Test Item Value Reference Range Interpretation [...] S NOT APPLICABLE FOR DIALYSIS PATIEN TS. Pulpit Operator ID - JOSE ESpecimen slightly ictericCBC W/PLT COUNT & AUTO [id number] 02:27:00 Test Item Value Reference Range Interpretation [...] PERCENT (BEAKER) (test code = 2801) POCT-GLUCOSE [id number] 00:42:00 Test Item Value Reference Range Interpretation Comments POC-GLUCOSE METER 95 mg/dL 70-110 : TESTED A T [facility] 6720 (BEAKER) (test code = [place], 1538) 92278: Pulpit Operator/Techni aaron ID = [id number] for SATISH CALDWELLN BASIC METABOLIC [id number] 22:23:00 Test Item Value Reference Range Interpretation [...] S NOT APPLICABLE FOR DIALYSIS PATIEN TS. Pulpit Operator ID - BSSpecimen slightly ictericBODY FLUID CELL COUNT WITH DIFFERENTIAL 2019-03-21 20:29:00 Test Item Value Reference Range Interpretation Comments APPEARANCE FLUID (BEAKER) (test Hazy Clear A code = 510) COLOR FLUID (BEAKER) (test code Kierra Colorless, Straw A = 511) RBC FLUID (BEAKER) (test code = 79145 /cu mm <=1 H 513) ADJUSTED WBC [...] = 2873) U/S, DRAINAGE, CHEST, WITH TUBE [id number] 19:48:00Please place a 3-way stopcock on the [...] loss: < 5 cc. Specimen: Left bedside. cloth boil off machine operator: Nato Dang MD. Assistant Boiler Operator: None. Technique: Informed written consent was [...] space. Under direct ultrasound guidance an 8 Jamaican skater pigtail drain was advanced into the [...] the patient's left chest and an 8 Jamaican skater pigtail drain was placed in a similar fashion and connected to the atrium pleura. The patient tolerated the procedure well without evidence of immediate competition. Impression: Te chnically successful and uncomplicated placement of bilateral pigtail chest tubes under ultrasound guidance. Signed: Nato Dang MDReport Verified Date/Time: 03/21/2019 19:48:47 Reading Location: [address] Body Reading Room US drainage chest with tube [id number] 19:48:00 Interface, External Ris In - 03/21/2019 7:50 PM CSTFINAL REPORT Ultrasound guided insertion of bilateral pigtail chest tube catheters. History: Bilateral loculated pleural effusions. Modality: Ultrasound Sedation: None Anesthesia: Two percent Lidocaine without epinephrine. Approach: Bilateral mid axillary line Estimated blood loss: < 5 cc. Specimen: Left bedside. cloth boil off machine operator: Nato Dang MD. Assistant Boiler Operator: None. Technique: Informed written consent was [...] space. Under direct ultrasound guidance an 8 Jamaican skater pigtail drain was advanced into the [...] the patient's left chest and an 8 Jamaican skater pigtail drain was placed in a similar fashion and connected to the atrium pleura. The patient tolerated the procedure well without evidence of immediate competition. Impression: Technically successful and uncomplicated placementof bilateral pigtail chest tubes under ultrasound guidance. Signed: Rissa Dang MDReport Verified Date/Time: 03/21/2019 19:48:47 Reading Location: [address] Body Reading [facility] 2019-03-21 12:39:00 Test Item Value Reference Range Interpretation Comments Human Metapneumovirus Not detected Not detected, (test code = 32281-0) Equivocal Rhinovirus (test code = Not detected Not detected, 13465-2) Equivocal INFLUENZA A (NO Not detected Not detected, SUBTYPE) (test code = Equivocal 46951-5) Influenza A subtype H1 (test code = 53639-0) Influenza A Subtype H3 (test code = 30539-5) Influenza A Subtype H1-2009 (test code = 80998-7) Influenza B (test code Not detected Not detected, = 43180-7) Equivocal Respiratory Syncytial Not detected Not detected, Virus (test code = Equivocal 91411-1) Parainfluenza Virus 1 Not detected Not detected, (test code = 08998-1) Equivocal Parainfluenza Virus 2 Not detected Not detected, (test code = 54338-2) Equivocal Parainfluenza virus 3 Not detected Not detected, (test code = 10610-3) Equivocal Parainfluenza Virus 4 Not detected Not detected, (test code = 28592-7) Equivocal Adenovirus (test code = Not detected Not detected, 34820-1) Equivocal Coronavirus 229E (test Not detected Not detected, code = 62657-4) Equivocal Coronavirus HKU1 (test Not detected Not detected, code = 52703-8) Equivocal Coronavirus NL63 (test Not detected Not detected, code = 81948-3) Equivocal Coronavirus OC43 (test Not detected Not detected, code = 10025-4) Equivocal Bordetella Pertussis Not detected Not detected, (test code = 78158-3) Equivocal Chlamydophila Not detected Not detected, Pneumoniae (test code = Equivocal 36038-0) Mycoplasma Pneumoniae Not detected Not detected, (test code = 22618-6) Equivocal DORI (test code = DORI) Other viruses and bacteria not targeted by this PCR panel cannot be excluded; therefore clinical correlation and follow up of serology, culture results, and other molecular studies is required. The results are not intended to be used as the sole means for clinical diagnosis or patient management decisions. This sample was tested at the [facility] Molecular Diagnostics Laboratory using the MetropolistArray Respiratory Panel. It is FDA cleared and has been verified and approved by the [facility] Molecular Diagnostics Laboratory for clinical use on nasopharyngeal swab specimens. The performance of the FilmArray RP has not been established in individuals who received influenza vaccine. Recent administration of a nasal influenza vaccine may cause false positive results for Influenza A and/orInfluenza B. [facility] [id number] 12:39:00 Test Item Value Reference Range Interpretation [...] sample was tested at the [facility] Molecular Diagnostics Laboratory using the MetropolistArray Respiratory Panel. It is FDA cleared and has been verified and approved by the [facility] Molecular Diagnostics Laboratory for clinical use on nasopharyngeal swab specimens.The performance of the FilmArrayRP has not been established in individuals who received influenza vaccine. Recent administration ofa nasal influenza vaccine may cause false positive results for Influenza A and/orInfluenza B.Vitamin B12 and [id number] 10:20:00 Test Item Value Reference Range Interpretation Comments Vitamin B12 (test code = >2000 213-816 H 2132-9) Folate (test code = 17.3 ng/mL >=7.0 2284-8) DORI (test code = DORI) Pulpit Operator ANGELI Loomis Lab Interpretation (test Abnormal code = 89092-6) [facility] CenterVITAMIN B12 AND [id number] 10:20:00 Test Item Value Reference Range Interpretation Comments VITAMIN B12 (BEAKER) (test code = > pg/mL 213-816 H 774) FOLATE (BEAKER) (test code = 362) 17.3 ng/mL >=7.0 Pulpit Operator ANGELI BOWERS [id number] 10:16:00 Test Item Value Reference Range Interpretation Comments Ferritin (test code = 1076 ng/mL 5-275 H 2276-4) DORI (test code = DORI) Pulpit Operator ANGELI Sultana Loomis Lab Interpretation (test Abnormal code = 75945-1) [facility] [id number] 10:16:00 Test Item Value Reference Range Interpretation Comments FERRITIN (BEAKER) (test code = 1076 ng/mL 5-275 H 361) Pulpit Operator ANGELI BOWERS MLactate dehydrogenase (LDH)2019-03-21 09:41:00 Test Item Value Reference Range Interpretation Comments LDH (test code = 2532-0) 300 U/L 125-220 H DORI (test code = DORI) Pulpit Operator ANGELI Loomis Lab Interpretation (test Abnormal code = 84746-2) [facility] CenterMAGNESIUM2020-01-24 09:41:00 Test Item Value Reference Range Interpretation Comments MAGNESIUM (BEAKER) (test code = 2.0 mg/dL 1.6-2.6 627) Pulpit Operator ANGELI BOWERS MBASIC METABOLIC [id number] 09:41:00 Test Item Value Reference Range Interpretation [...] S NOT APPLICABLE FOR DIALYSIS PATIEN TS. Pulpit Operator ID - ELISSA MSpecimen slightly ictericLACTATE DEHYDROGENASE (LDH) 2019-03-21 09:41:00 Test Item Value Reference Range Interpretation Comments LACTATE DEHYDROGENASE (BEAKER) (test 300 U/L 125-220 H code = 635) Pulpit Operator ID - ELISSA Newby, TIBC, % sat. (without ferritin)2019-03-21 09:39:00 Test Item Value Reference Range Interpretation Comments Iron (test code = 2498-4) 39.0 ug/dL 40-160 L TIBC (test code = 2500-7) 113 ug/dL 250-450 L Iron % Saturation (test 35 % 20-55 code = 2502-3) DORI (test code = DORI) Pulpit Operator ID Sultana BOWERS Vladislav Lab Interpretation (test Abnormal code = 48227-3) [facility] CenterIRON, TIBC, % SAT. (WITHOUT FERRITIN)2019-03-21 09:39:00 Test Item Value Reference Range Interpretation Comments IRON (BEAKER) (test code = 547) 39.0 ug/dL 40.0-160.0 L TOTAL IRON BINDING CAPACITY 113 ug/dL 250-450 L (BEAKER) (test code = 769) IRON % SATURATION (2) (BEAKER) 35 % 20-55 (test code = 2590) Pulpit Operator ID Sultana ELISSA Thuan Influenza A&B [id number] 09:34:00 Test Item Value Reference Range Interpretation Comments Rapid Influenza A Antigen Negative Negative, Inconclusive (test code = 84756-6) Rapid influenza B Antigen Negative Negative, Inconclusive (test code = 47726-4) Lab Interpretation (test code Normal = 98274-7) [facility] CenterRAPID INFLUENZA A&B [id number] 09:34:00 Test Item Value Reference Range Interpretation Comments RAPID INFLUENZA A AG (BEAKER) Negative Negative, Inconclusive (test code = 1622) RAPID INFLUENZA B AG (BEAKER) Negative Negative, Inconclusive (test code = 1623) Reticulocyte [id number] 09:20:00 Test Item Value Reference Range Interpretation Comments % Retic (test code = 1.9 % 0.5-1.8 H 48889-7) DORI (test code = DORI) Pulpit Operator ID - [id number] Lab Interpretation (test Abnormal code = 93602-1) [facility] CenterRETICULOCYTE [id number] 09:20:00 Test Item Value Reference Range Interpretation Comments RETICULOCYTE COUNT PCT (BEAKER) (test 1.9 % 0.5-1.8 H code = 575) Pulpit Operator ID - [id number] W/PLT COUNT & AUTO [id number] 08:50:00 Test Item Value Reference Range Interpretation [...] PLATELET CONCENTRATION Adequate (CELLAVISION)(BEAKER) (test code = 3308) Pulpit Operator ID - Mariela OverholtUser comments: Slide comments:POCT-GLUCOSE METER 2019-03-21 05:45:00 Test Item Value Reference Range Interpretation Comments POC-GLUCOSE METER 89 mg/dL 70-110 : TESTED A T [facility] 6720 (BEAKER) (test code = [place], 1538) 47060: Pulpit Operator/Techni aaron ID = [id number] for OLENA SEDISON U/S, ABDOMINAL, [id number] 05:36:00Abdomen limited area? Add comment if clarification [...] Luque MD Report Verified Date/Time: 03/21/2019 05:36:04 [id number] 03:16:00 Test Item Value Reference Range Interpretation Comments MAGNESIUM (BEAKER) 2.1 mg/dL 1.6-2.6 Specimen slightly (test code = 627) hemolyzed Pulpit Operator ID - ELISSA [id number] 03:16:00 Test Item Value Reference Range Interpretation Comments PHOSPHORUS (BEAKER) 4.4 mg/dL 2.3-4.7 Specimen slightly (test code = 604) hemolyzed Pulpit Operator ID - ELISSA [id number] 02:32:00 Test Item Value Reference Range Interpretation Comments MAGNESIUM (BEAKER) 2.1 mg/dL 1.6-2.6 Specimen slightly (test code = 627) hemolyzed Pulpit Operator ID - ALEM BBASIC METABOLIC [id number] 01:30:00 Test Item Value Reference Range Interpretation [...] S NOT APPLICABLE FOR DIALYSIS PATIEN TS. Pulpit Operator ID - ALEM BSpecimen slightly ictericPOCT-GLUCOSE [id number] 23:58:00 Test Item Value Reference Range Interpretation Comments POC-GLUCOSE METER 114 mg/dL 70-110 H : TESTED A T [facility] 6720 (BEAKER) (test code = [place], 1538) 64047: Pulpit Operator/Techni aaron ID = [id number] for EDISON BELTRAN [id number] 20:21:00 Test Item Value Reference Range Interpretation Comments MAGNESIUM (BEAKER) (test code = 2.1 mg/dL 1.6-2.6 627) Pulpit Operator ID - ALEM BPOCT-GLUCOSE [id number] 18:23:00 Test Item Value Reference Range Interpretation Comments POC-GLUCOSE METER 98 mg/dL 70-110 : TESTED A T [facility] 6720 (BEAKER) (test code = [place], 1538) 73444: Pulpit Operator/Techni aaron ID = [id number] for ISABELA LE BASIC METABOLIC [id number] 17:43:00 Test Item Value Reference Range Interpretation [...] S NOT APPLICABLE FOR DIALYSIS PATIEN TS. 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 Aortic Valve Qjiq-dj-gjyecncg AoV cusp calcification. Mild aortic stenosis. AoV [...] CO: 7.28 l/min LVOT CI: 3.5 l/min/m^2[facility] HospitalCT[facility], WITHOUT [id number] 14:58:00FINAL REPORT CT of the Chest dated [...] compressive atelectasis. Signed: Tomasa Foss Verified Date/Time: 03/20/2019 14:58:27 Reading Location: [address] Body Reading Room VANCOMYCIN LEVEL, TROUGH 2019-03-20 13:36:00 Test Item Value Reference Range Interpretation Comments VANCOMYCIN TROUGH (BEAKER) (test 24.0 ug/mL 10.0-20.0 H code = 522) Pulpit Operator ID - BSPOCT-GLUCOSE [id number] 12:46:00 Test Item Value Reference Range Interpretation Comments POC-GLUCOSE METER 87 mg/dL 70-110 : TESTED A T [facility] 6720 (BEAKER) (test code = IL[place], 1538) [address]: Pulpit Operator/Techni aaron ID = [id number] for ISABELA LE Hemoglobin [id number] 09:33:00 Test Item Value Reference Range Interpretation Comments Hemoglobin A1C (test code = 4548-4) 6.2 % 4.3-6.1 H Lab Interpretation (test code = Abnormal 30907-3) [facility] [id number] 09:33:00 Test Item Value Reference Range Interpretation Comments HEMOGLOBIN A1C (BEAKER) (test code = 6.2 % 4.3-6.1 H 368) Osmolality, [id number] 07:32:00 Test Item Value Reference Range Interpretation Comments Osmolality, Ur (test code = 2695-5) 540 40-1,400 mOsm/kg Lab Interpretation (test code = Normal 41499-9) [facility] CenterOSMOLALITY, [id number] 07:32:00 Test Item Value Reference Range Interpretation Comments OSMOLALITY URINE (BEAKER) (test 540 mOsm/kg 40-1,400 code = 614) ABORH, [id number] 06:44:00 Test Item Value Reference Range Interpretation Comments ABO Grouping (test code = 2588) A Rh Factor (test code = 2589) NEG [facility] CenterTROPONIN [id number] 06:34:00 Test Item Value Reference Range Interpretation [...] failure, acidosis, acute neurological disease, and persistent tachyarrhythmia.Pulpit Operator ID - SANDRA WLACTIC ACID, VENOUS 2019-03-20 06:14:00 Test Item Value Reference Range Interpretation Comments LACTATE BLOOD VENOUS (2) (BEAKER) 2.0 mmol/L 0.5-2.2 (test code = 2872) Pulpit Operator ID - SANDRA WSpecimen slightly ictericPOCT-GLUCOSE [id number] 05:56:00 Test Item Value Reference Range Interpretation Comments POC-GLUCOSE METER 86 mg/dL 70-110 : TESTED A T [facility] 6720 (BEAKER) (test code = IL[place], 1538) [address]: Pulpit Operator/Techni aarno ID = [id number] for CHARLEEN OLIVER CBC W/PLT COUNT & AUTO [id number] 05:35:00 Test Item Value Reference Range Interpretation [...] code = 2801) URINALYSIS W/ REFLEX URINE [id number] 04:38:00 Test Item Value Reference Range Interpretation [...] = 516) SOURCE(BEAKER) (test code = 2795) Pulpit Operator ID - [auto]Pulpit Operator ID - techVANESSA, CHEST, 1 VIEW, NON [id number] 04:29:00Reason for exam:->pneumonia, COPD exac, CHF exacShould [...] Goldstein Verified Date/Time: 03/20/2019 04:29:54 BLOOD GAS, [id number] 04:12:00 Test Item Value Reference Range Interpretation [...] = 1819) 30.0 % TSH/Free T4 If [id number] 04:07:00 Test Item Value Reference Range Interpretation Comments TSH (test code = 70522-4) 3.06 0.35- 4.94 uIU/mL DORI (test code = DORI) Pulpit Operator ID - BS Lab Interpretation (test Normal code = 28709-7) [facility] CenterTSH/FREE T4 IF [id number] 04:07:00 Test Item Value Reference Range Interpretation Comments THYROID STIMULATING HORMONE 3.06 uIU/mL 0.35-4.94 (BEAKER) (test code = 772) Pulpit Operator ID - SUJATHAROPOPANDA [id number] 03:57:00 Test Item Value Reference Range Interpretation [...] failure, acidosis, acute neurological disease, and persistent tachyarrhythmia.Pulpit Operator ID Sultana FLORES WB-TYPE NATRIURETIC FACTOR (BNP)2019-03-20 03:53:00 Test Item Value Reference Range Interpretation Comments B-TYPE NATRIURETIC PEPTIDE (BEAKER) 907 pg/mL 0-100 H (test code = 700) Pulpit Operator ID - BSLipid [id number] 03:52:00 Test Item Value Reference Range Interpretation Comments Triglycerides (test 60 mg/dL Specimen code = 2571-8) slightly hemolyzed Cholesterol (test 55 mg/dL Specimen code = 2093-3) slightly hemolyzed HDL (test code = 15 mg/dL 5-9) LDL Calculated (test 28 mg/dL code = 24815-0) DORI (test code = Triglyceride DORI) Reference Range: Low Risk <150 Borderline 150-199 High Risk 200-499 Very High Risk >=500 Cholesterol Reference Range: Low Risk <200 Borderline 200-239 High Risk >240 HDL Cholesterol Reference Range: Low Risk >=60 High Risk <40 LDL Cholesterol Reference Range: Optimal <100 Near Optimal 100-129 Borderline 130-159 High 160-189 Very High >=190 Pulpit Operator ID - SANDRA WSpecimen slightly icteric [facility] CenterBASIC METABOLIC [id number] 03:52:00 Test Item Value Reference Range Interpretation [...] S NOT APPLICABLE FOR DIALYSIS PATIEN TS. Pulpit Operator ID - SANDRA WSpecimen slightly ictericHEPATIC FUNCTION [id number] 03:52:00 Test Item Value Reference Range Interpretation [...] Specimen slightly (test code = 347) hemolyzed Pulpit Operator ID - SANDRA WSpecimen slightly ictericLIPID [id number] 03:52:00 Test Item Value Reference Range Interpretation [...] Borderline 130-159 High 160-189 Very High >=190 Pulpit Operator ID - SANDRAWSpecimen slightly ictericVANCOMYCIN LEVEL, RANDOM 2019-03-20 03:51:00 Test Item Value Reference Range Interpretation Comments VANCOMYCIN RANDOM (BEAKER) (test 52.3 ug/mL code = 523) Reference Range: No NormalsOperator ID Sultana FLORES [id number] 03:49:00 Test Item Value Reference Range Interpretation Comments MAGNESIUM (BEAKER) 2.1 mg/dL 1.6-2.6 Specimen slightly (test code = 627) hemolyzed Pulpit Operator ID - SANDRA [id number] 03:49:00 Test Item Value Reference Range Interpretation Comments PHOSPHORUS (BEAKER) 3.0 mg/dL 2.3-4.7 Specimen slightly (test code = 604) hemolyzed Pulpit Operator ID - SANDRA [id number] 03:36:00 Test Item Value Reference Range Interpretation Comments FIBRINOGEN LEVEL (BEAKER) (test 492 mg/dl 225-434 H code = 658) [id number] 03:36:00 Test Item Value Reference Range Interpretation [...] is2.5-3.5 for patients wiht mechanical heart valves.PROTHROMBIN TIME/[id number] 03:35:00 Test Item Value Reference Range Interpretation [...] for patients wiht mechanical heart valves.Chloride, random [id number] 03:33:00 Test Item Value Reference Range Interpretation Comments ChlorideUr (test <20 meq/L code = 42780-7) DORI (test code = Reference Range: No DORI) NormalsOperator ID - BS [facility] [id number] 03:33:00 Test Item Value Reference Range Interpretation Comments SODIUM URINE (BEAKER) (test code = < meq/L 243) Reference Range: No NormalsOperator ID - BSCHLORIDE, RANDOM [id number] 03:33:00 Test Item Value Reference Range Interpretation Comments CHLORIDE URINE (BEAKER) (test code = < meq/L 682) Reference Range: No NormalsOperator ID - BSProtein, random [id number] 03:32:00 Test Item Value Reference Range Interpretation Comments Protein, Urine (test code = 72 mg/dL 0-14 H 2888-6) DORI (test code = DORI) Pulpit Operator ID - BS Lab Interpretation (test Abnormal code = 20235-8) [facility] CenterCREATININE, RANDOM [id number] 03:32:00 Test Item Value Reference Range Interpretation Comments CREATININE URINE (BEAKER) (test 120.7 mg/dL code = 375) Reference Range: No NormalsOperator ID - BSPROTEIN, RANDOM [id number] 03:32:00 Test Item Value Reference Range Interpretation Comments PROTEIN, URINE (BEAKER) (test code = 72 mg/dL 0-14 H 1569) Pulpit Operator ID - BSUREA NITROGEN, RANDOM [id number] 03:32:00 Test Item Value Reference Range Interpretation Comments UREA NITROGEN URINE (BEAKER) (test 915 mg/dL code = 538) Reference Range: No NormalsOperator ID - BSStrep pneumoniae [id number] 03:31:00 Test Item Value Reference Range Interpretation Comments Strep pneumoniae Presumptive negative Presumptive Antigen (test code = [place] [address]-1) pneumonia - see pneumococcal comment pneumonia - see comment, Presumptive negative for pneumococcal meningitis DORI (test code = DORI) Presumptive negative for pneumococcal pneumonia, suggesting no current or recent pneumococcal infection. Infection due to S. pneumoniae cannot be ruled out since the antigen present in the sample may be below the detection limit of the test. Lab Interpretation Normal (test code = 56328-8) [facility] HospitalTRE PNEUMONIAE [id number] 03:31:00 Test Item Value Reference Range Interpretation [...] the detection limit of the test.Legionella antigen, [id number] 03:30:00 Test Item Value Reference Range Interpretation Comments Legionella Urine Negative - see Negative for L. Antigen (test code comment pneumophi la = 28771-7) serogroup 1 ant igen, suggesting no r ecent or current infe ction with this serog roup. Legionellosis c annot be ruled out si nce other serogroup s and species may cau se disease. [facility] CenterLEGIONELLA ANTIGEN, [id number] 03:30:00 Test Item Value Reference Range Interpretation Comments L. PNEUMOPHILA Negative - see Negative fo r L. SEROGP 1 UR AG comment pneumophila (BEAKER) (test code serogrou p 1 antigen, = 1156) suggesting no r ecent or current infe ction with this serog roup. Legionellosis c annot be ruled out si nce other serogroup s and species may cau se disease. POCT-GLUCOSE [id number] 00:50:00 Test Item Value Reference Range Interpretation Comments POC-GLUCOSE METER 87 mg/dL 70-110 : TESTED A T [facility] 6720 (BEAKER) (test code = IL[place], 1538) [address]: Pulpit Operator/Techni aaron ID = [id number] for CHARLEEN OLIVER [id number] 09:16:00 Test Item Value Reference Range Interpretation Comments MAGNESIUM (BEAKER) (test code = 1.7 mg/dL 1.6-2.6 627) [id number] 09:16:00 Test Item Value Reference Range Interpretation Comments PHOSPHORUS (BEAKER) (test code = 4.2 mg/dL 2.3-4.7 604) BASIC METABOLIC [id number] 05:44:00 Test Item Value Reference Range Interpretation [...] PATIEN TS. CBC W/PLT COUNT & AUTO [id number] 05:29:00 Test Item Value Reference Range Interpretation [...] PERCENT (BEAKER) (test code = 2801) TROPONIN [id number] 22:36:00 Test Item Value Reference Range Interpretation [...] acidosis, acute neurological disease, and persistent tachyarrhythmia.TROPONIN [id number] 16:36:00 Test Item Value Reference Range Interpretation [...] neurological disease, and persistent tachyarrhythmia.TSH/FREE T4 IF [id number] 10:58:00 Test Item Value Reference Range Interpretation Comments THYROID STIMULATING HORMONE 1.16 uIU/mL 0.35-4.94 (BEAKER) (test code = 772) TROPONIN [id number] 10:44:00 Test Item Value Reference Range Interpretation [...] Transthoracic 2D echo w/ doppler (cw/pw/color)2019-01-23 10:36:33Ejection FractionSLEH ECHO HEARTLAB MKCKESSON CPACSInterface, External Ris In - 01/23/2019 10:36 AM CSTTransthoracic Echocardiography Report (TTE) Demographics Patient Name JOHN DELUNA Date of Study 01/22/2019 Gender Male Visit Number [id number] Race Unknown Room Number 2238 Number Date of 1955 Referring BRITTON HAMILTON Physician Age 63 year(s) 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 4. Mild mitral regurgitation. Zvhu-mx-kzxlhslk mitral stenosis secondary to MAC. 5. Aortic [...] severity assessment is unreliable . Aortic Valve Kudv-pi-qxothueb AoV cusp calcification. Mild aortic stenosis. AoV area at rest by continuity equation is in the range of 1.82 cm2. Preserved stroke volume. Mitral Valve Mild MV leaflet thickening. Severe mitral annular and subvalvular calcification. Mild mitral regurgitation. Saoa-km-azrmusiz mitral stenosis secondary to MAC. MV area [...] CO: 4.89 l/min LVOT CI: 2.42 l/min/m^2[facility] HospitalMAGNESIUM2019-11-28 10:05:00 Test Item Value Reference Range Interpretation Comments MAGNESIUM (BEAKER) (test code = 1.7 mg/dL 1.6-2.6 627) MR, MRA, BRAIN, WITHOUT [id number] 08:26:00FINAL REPORT MRV Head CLINICAL HISTORY:Stroke, follow upconcern for transverse sinus thrombosis, need MRV please TECHNIQUE: MRV of the head utilizing 2-D xflt-bf-algved technique. COMPARISON: CTA 01/22/2019 FINDINGS: There is [...] Date/Time: 01/23/2019 08:26:36 MRA head without IV [id number] 08:26:00Interface, External Ris In - 01/23/2019 8:29 AM CSTFINAL REPORT MRV Head CLIN ICAL HISTORY:Stroke, follow upconcern for transverse sinus thrombosis, need MRV please TECHNIQUE: MRV of the head utilizing 2-D lrqm-go-oangxh technique. COMPARISON: CTA 01/22/2019 FINDINGS: There is an irregular filling defect within the medial aspect of the left transverse sinus, corresponding with the abnormality seen on yesterday's CTA. The other major dural venous sinuses in the brain are patent. IMPRESSION: Filling defect within the medial aspect of the left transverse sinus remains concerningfor venous thrombosis. Signed: Delaney Rajan Verified Date/Time: 01/23/2019 08:26:36 [facility] METABOLIC [id number] 05:55:00 Test Item Value Reference Range Interpretation [...] PATIEN TS. CBC W/PLT COUNT & AUTO [id number] 05:34:00 Test Item Value Reference Range Interpretation [...] 0-1 PERCENT (BEAKER) (test code = 2801) [id number] 20:49:00 Test Item Value Reference Range Interpretation Comments POTASSIUM (BEAKER) (test code = 2.8 meq/L 3.5-5.1 L 379) MR, BRAIN, WITHOUT [id number] 19:25:00Reason for exam:->Ischemic Stroke EvaluationFINAL REPORT MR, [...] Signed: Delaney Rajan MDReport Verified Date/Time: 01/22/2019 19:25:11 MR brain without IV [id number] 19:25:00Interface, External Ris In - 01/22/2019 7:28 [...] Signed: Delaney Rajan MDReport Verified Date/Time: 01/22/2019 19:25:11 [facility] [id number] 19:16:00FINAL REPORT CLINICAL HISTORY: Neuro deficit, acute, [...] Delaney Rajan MDReport Verified Date/Time: 01/22/2019 19:16:06 CT, CAROTID, [id number] 19:16:00FINAL REPORT CLINICAL HISTORY: Neuro deficit, acute, [...] Delaney Rajan MDReport Verified Date/Time: 01/22/2019 19:16:06 [facility] [id number] 19:16:00Interface, External Ris In - 01/22/2019 7:18 [...] Delaney Rajan MDReport Verified Date/Time: 01/22/2019 19:16:06 [facility] CTA [id number] 19:16:00Interface, External Ris In - 01/24/2019 2:56 [...] Signed: Delaney Rajan Verified Date/Time: 01/22/2019 19:16:06 [facility]RPR2019-11-27 11:47:00 Test Item Value Reference Range Interpretation Comments RPR (test code = 30713-3) Nonreactive Nonreactive Lab Interpretation (test code = Normal 59425-9) [facility]PR2019-[facility]-27 11:47:00 Test Item Value Reference Range Interpretation Comments RPR SCREEN (BEAKER) (test code = Nonreactive Nonreactive 420) [id number] 08:23:00 Test Item Value Reference Range Interpretation Comments MAGNESIUM (BEAKER) (test code = 1.7 mg/dL 1.6-2.6 627) FastingHEMOGLOBIN [id number] 08:10:00 Test Item Value Reference Range Interpretation Comments HEMOGLOBIN A1C (BEAKER) (test code = 5.7 % 4.3-6.1 368) FastingLIPID [id number] 05:15:00 Test Item Value Reference Range Interpretation [...] 130-159 High 160-189 Very High >=190 FastingTROPONIN [id number] 05:11:00 Test Item Value Reference Range Interpretation [...] neurological disease, and persistent tachyarrhythmia.FastingVITAMIN B12 AND [id number] 04:01:00 Test Item Value Reference Range Interpretation Comments VITAMIN B12 (BEAKER) (test code = 1973 pg/mL 213-816 H 774) FOLATE (BEAKER) (test code = 362) 18.5 ng/mL >=7.0 TSH/FREE T4 IF [id number] 03:48:00 Test Item Value Reference Range Interpretation Comments THYROID STIMULATING HORMONE 1.38 uIU/mL 0.35-4.94 (BEAKER) (test code = 772) TROPONIN [id number] 00:15:00 Test Item Value Reference Range Interpretation [...] acute neurological disease, and persistent tachyarrhythmia.BASIC METABOLIC [id number] 00:11:00 Test Item Value Reference Range Interpretation [...] FOR DIALYSIS PATIEN TS. Specimen slightly ictericPROTHROMBIN TIME/[id number] 23:48:00 Test Item Value Reference Range Interpretation [...] mechanical heart valves.RAD, CHEST, 1 VIEW, NON [id number] 23:46:00Reason for exam:->strokeShould this be performed at the bedside?->YesFINAL REPORT INDICATION: stroke TECHNIQUE: Chest radiograph, single view, portable technique. FINDINGS / IMPRESSION: Patient is status post median sternotomy.Heart shadow is enlarged and there is a small right pleural effusion.No overt pulmonary edema, discrete pneumonia, or pneumothorax is demonstrated.Osseous structures unremarkable. Signed: Jesus Grant MDReport VerifiedDate/Time: 01/21/2019 23:46:27 Reading Location: [address] Consult Reading Room CBC W/PLT COUNT & AUTO [id number] 23:39:00 Test Item Value Reference Range Interpretation [...] % 0-1 PERCENT (BEAKER) (test code = 8581)
[2019-10-08 06:41] LABS: Protime INR 2.3
[2019-10-08] MEDS ORDERED: GLUCAGON 1 MG/VIAL ONE ×2 (06:44→06:46)
[2019-10-08 07:23] LABS: Albumin 2.2 g/dL (3.4-5.0); Bilirubin Direct 0.5 mg/dL (0-0.2); Bilirubin Total 0.8 mg/dL (0.2-1.0); Magnesium 2.5 mg/dL (1.8-2.4); Potassium 4.1 mmol/L (3.5-5.1); Protein, Total 6.9 g/dL (6.4-8.2); Troponin (Emerg Dept Use Only) 0.03 ng/mL (0.0-0.045)
[2019-10-08] MEDS ORDERED: ONDANSETRON 4 MG/2 ML VIAL ONE (07:26)
[2019-10-08] MEDS ORDERED: PIPER/TAZO/NS 3.375gm 3.375 GM/100 ML BAG ONE (07:26)
--- NOTE | 2019-10-08 07:32 | RAD REPORT ---
EXAM DESCRIPTION: CT - Head Brain Wo Cont - 10/08/2019 7:07 am CLINICAL HISTORY: DECLINING STATE, transient alteration of awareness COMPARISON: Head Brain Wo Cont dated 09/08/2019 TECHNIQUE: Axial 5 mm thick images of the head were obtained without IV contrast. All CT scans are performed using dose optimization technique as appropriate and may include automated exposure control or mA/KV adjustment according to patient size. FINDINGS: No intracranial hemorrhage, mass, edema or shift of mid-line structures. No acute cortical based infarction identified. No cortical edema or sulcal effacement. Atrophy and chronic ischemic ch anges are mild and not clearly different from the short interval September 07 study. Ventricles are in pro portion to volume loss. Mastoid air cells and visualized portions of the paranasal sinuses are clear. No acute bony findings. IMPRESSION: No hemorrhage, mass or other acute intracranial finding. Mild atrophy and mild chronic ischemic changes are present matching September 07 imaging. Chronic ischemic changes can mask nonhemorrhagic acute infarction. MR brain followup can be obtained if there is ongoing concern for acute ischemia.
[2019-10-08] MEDS ORDERED: NA CHLORIDE 0.9% 2,000 ML ONE (07:34)
--- NOTE | 2019-10-08 07:40 | RAD REPORT ---
EXAM DESCRIPTION: RAD - Chest Single View - 10/08/2019 6:41 am CLINICAL HISTORY: AMS, hypertension, shortness of breath COMPARISON: September 07 TECHNIQUE: AP portable chest image was obtained 10/08/2019 6:41 am . FINDINGS: Previously detailed loculated pleural effusion at the right base again noted. This is prob ably not any different than the September 07 examination. Lung parenchymal opacification partially obscure s the right heart border. Heart size is stable. Vasculature is prominent. Interstitial pattern is pro minent but not substantially different from comparison. No pneumothorax. No large left-sided pleural effusion. No acute bony abnormality seen. No acute aortic finding. Resuscitation paddle overlies the right chest. IMPRESSION: Chronic right base pleural and parenchymal opacification not substantially different fro m comparison. Overall prominence of the lung parenchyma and vasculature. Findings are not substantially different f rom comparison.
--- NOTE | 2019-10-08 07:47 | EDPHYS ---
Physician Documentation [facility] Name: Tex Vergara Age: 63 yrs Sex: Male : 1955 Arrival Date: 10/08/2019 Time: 06:16 Bed 3 Private MD: ED Physician Carlos Olivier HPI: 10/07 06:40 This 63 yrs old Male presents to ER via EMS with complaints of Altered Mental tw4 Status. 06:40 The patient presents with decreased responsiveness. Onset: The symptoms/episode tw4 began/occurred 2 day(s) ago. Possible causes: sepsis, unknown. Associated signs and symptoms: The patient has no apparent associated signs or symptoms. Current symptoms: In the emergency department the patient's symptoms are unchanged from the initial presentation. Patient's baseline: Neuro: alert but confused, Motor: no deficits, Ambulation: walks with assist only. The patient has not experienced similar symptoms in the past. Historical: - Allergies: :28 No Known Allergies; bb - Home Meds: :28 amiodarone 200 mg oral tab 0.5 tab once daily [Active]; aspirin 81 mg oral chew 1 tab bb once daily [Active]; atorvastatin 40 mg oral tab 1 tab once daily [Active]; bupropion HCl 100 mg oral tab 1 tab daily [Active]; Eliquis 5 mg Oral tab 1 tab 2 times per day [Active]; furosemide 40 mg Oral tab 1 tab 2 times per day [Active]; ferrous sulfate 325 mg (65 mg iron) oral tab twice a day [Active]; magnesium oxide 400 mg Oral cap daily [Active]; Potassium Chloride 15 mL BID Oral [Active]; metoprolol tartrate 100 mg Oral tab 1 tab 2 times per day [Active]; metolazone 5 mg Oral tab 1 tab twice a day [Active]; quetiapine 25 mg oral tab 1 tab daily [Active]; tramadol 50 mg Oral tab [Active]; fluticasone inhalation inhalation [Active]; - PMHx: 06:28 Atrial Fib; CHF; COPD; Hypertension; stroke; TIA; bb - PSHx: :28 peg tube; heart transplant; CABG; bb - Immunization history:: Adult Immunizations unknown. - Social history:: Smoking status: unknown. ROS: 06:40 Constitutional: Negative for fever, chills, and weight loss, Eyes: Negative for injury, tw4 pain, redness, and discharge, Cardiovascular: Negative for chest pain, palpitations, and edema, Respiratory: Negative for shortness of breath, cough, wheezing, and pleuritic chest pain, Abdomen/GI: Negative for abdominal pain, nausea, vomiting, diarrhea, and constipation, Back: Negative for injury and pain, MS/Extremity: Negative for injury and deformity. 06:40 Neuro: Positive for altered mental status, Negative for dizziness, gait disturbance, seizure activity, speech changes, syncope, near syncope, tingling, tinnitus, tremor, visual changes. Exam: 06:40 Head/Face: Normocephalic, atraumatic. Chest/axilla: Normal chest wall appearance and tw4 motion. Nontender with no deformity. No lesions are appreciated. Respiratory: Lungs have equal breath sounds bilaterally, clear to auscultation and percussion. No rales, rhonchi or wheezes noted. No increased work of breathing, no retractions or nasal flaring. 06:40 Constitutional: The patient appears lethargic. 06:40 Cardiovascular: Rate: bradycardic, actual rate is 35 bpm, Rhythm: regular. Vital Signs: 06:17 BP 124 / 57; Pulse 35; Resp 16 S; Temp 97.7(A); Pulse Ox 97% on R/A; Weight 72.57 kg bb (R); Pain 0/10; 06:45 BP 119 / 50; Pulse 38; Resp 15; Pulse Ox 98% ; rr5 07:05 BP 118 / 77; Pulse 36; Resp 17; Pulse Ox 97% ; jl7 07:20 BP 125 / 45; Pulse 36; Resp 17 S; Pulse Ox 97% on R/A; jl7 07:45 BP 122 / 48; Pulse 36; Resp 17 S; Pulse Ox 98% on R/A; jl7 08:30 BP 117 / 47; Pulse 37; Resp 17 S; Temp 98(C); Pulse Ox 99% on R/A; jl7 09:00 BP 125 / 49; Pulse 38; Resp 17; Pulse Ox 97% ; jl7 14:59 Pulse 57; Resp 19; Pulse Ox 98% ; jl7 Hartman Coma Score: 06:15 Eye Response: to voice(3). Verbal Response: incomprehensible(2). Motor Response: rr5 localizes pain(5). Total: 10. MDM: 07:47 Patient medically screened. kdr 07:47 Data reviewed: vital signs, nurses notes, lab test result(s), radiologic studies. [facility] Physician consultation: Luca Morales DO. 10/07 06:18 Order name: Basic Metabolic Panel; Complete Time: 08:01 tw4 10/07 06:18 Order name: CBC with Diff; Complete Time: 07:24 tw4 10/07 06:18 Order name: LFT's; Complete Time: 08:01 tw4 10/07 06:18 Order name: Magnesium; Complete Time: 08:01 tw4 10/07 06:18 Order name: NT PRO-BNP; Complete Time: 08:01 tw4 10/07 06:18 Order name: PT-INR; Complete Time: 07:24 tw4 10/07 06:18 Order name: Troponin (emerg Dept Use Only); Complete Time: 08:01 tw4 10/07 06:22 Order name: Blood Culture Adult (2) tw4 10/07 06:22 Order name: Lactate; Complete Time: 07:24 tw4 10/07 06:48 Order name: Glucose, Ancillary Testing; Complete Time: 07:24 EDMS 10/07 08:45 Order name: COVID-19 jl7 10/07 09:18 Order name: Urine Dipstick--Ancillary (enter results); Complete Time: 18:07 bd 10/07 09:47 Order name: Lactate Sepsis 2 HR Follow-up; Complete Time: 18:07 EDMS 10/07 12:05 Order name: SARS-COV-2 RT PCR; Complete Time: 18:07 EDMS 10/07 06:18 Order name: XRAY Chest (1 view); Complete Time: 08:01 tw4 10/07 06:18 Order name: EKG; Complete Time: 06:19 tw4 10/07 06:18 Order name: Cardiac monitoring; Complete Time: 06:43 tw4 10/07 06:18 Order name: EKG - Nurse/Tech; Complete Time: 06:43 tw4 10/07 06:18 Order name: IV Saline Lock; Complete Time: 06:43 tw4 10/07 06:18 Order name: Labs collected and sent; Complete Time: 06:43 tw4 10/07 06:18 Order name: O2 Per Protocol; Complete Time: 06:43 tw4 10/07 06:18 Order name: CT Head Brain wo Cont; Complete Time: 08:01 tw4 10/07 13:03 Order name: Urine Culture EDMS 10/07 06:18 Order name: O2 Sat Monitoring; Complete Time: 06:43 tw4 EC:40 Rate is 35 beats/min. Rhythm is regular. QRS Elm Mott is Normal. NC interval is normal. QRS tw4 interval is normal. QT interval is normal. No Q waves. T waves are Inverted in lead III. No ST changes noted. Clinical impression: LVH. Interpreted by me. Reviewed by me. Administered Medications: 06:43 Drug: Glucagon 5 mg Route: IVP; Site: left hand; rr5 07:00 Follow up: Response: No adverse reaction jl7 07:30 Drug: NS 0.9% (30 ml/kg) 30 ml/kg Route: IV; Rate: bolus; Site: left hand; jl7 09:00 Follow up: Response: No adverse reaction; IV Status: Completed infusion; IV Intake: jl7 2000ml 07:45 Drug: Zosyn 3.375 grams Route: IVPB; Infused Over: 60 mins; Site: right hand; jl7 08:45 Follow up: Response: No adverse reaction; IV Status: Completed infusion jl7 12:45 Drug: Haloperidol 2 mg Route: IVP; Site: left hand; jl7 13:05 Follow up: Response: No change in condition jl7 12:49 Not Given (Pt not nauseous at this time): Zofran (Ondansetron) 4 mg IVP once; over 2 jl7 minutes 13:07 Drug: Geodon 10 mg Route: IM; Site: left deltoid; jl7 14:21 Follow up: Response: No adverse reaction; No change in condition jl7 14:22 Drug: Ativan 0.25 mg Route: IVP; Site: left hand; jl7 15:02 Follow up: Response: No adverse reaction; Marked relief of symptoms jl7 Disposition: 10/08/19 07:47 Hospitalization ordered by Luca Morales for Inpatient Admission. Preliminary diagnosis are Altered mental status, unspecified, Bradycardia, unspecified. - Bed requested for Telemetry/MedSurg (Inpatient). - Status is Inpatient Admission. jl7 - Condition is Fair. - Problem is an acute exacerbation. - Symptoms have improved. Signatures: Dispatcher [employer] EDMS France Becerra, RN RN kl Carlos Olivier MD MD kdr Anyi Petersen RN RN bb Ryan Patel RN RN jl7 Benito Hooker MD MD tw4 Ronnie Paul, [place] RN rr5 Corrections: (The following items were deleted from the chart) 09:00 07:47 [facility] Preliminary [facility] diagnosis is Altered mental status, unspecified; Bradycardia, unspecified. Bed requested for Telemetry/MedSurg (observation). Status is Inpatient Admission. Condition is Fair. Problem is an acute exacerbation. Symptoms have improved. [facility] 11:08 09:00 10/08/2019 07:47 Hospitalization Ordered by [facility] for Inpatient kl Admission. Preliminary diagnosis is Altered mental status, unspecified; Bradycardia, unspecified. Bed requested for Intensive Care Unit. Status is Inpatient Admission. Condition is Fair. Problem is an acute exacerbation. Symptoms have improved. [facility] 13:12 11:08 10/08/2019 07:47 Hospitalization Ordered by [facility] for Inpatient jl7 Admission. Preliminary diagnosis is Altered mental status, unspecified; Bradycardia, unspecified. Bed requested for Telemetry/MedSurg (Inpatient). Status is Inpatient Admission. Condition is Fair. Problem is an acute exacerbation. Symptoms have improved. 15:03 13:12 10/08/2019 07:47 Hospitalization Ordered by [facility] for Inpatient jl7 Admission. Preliminary diagnosis is Altered mental status, unspecified; Bradycardia, unspecified. Bed requested for Telemetry/MedSurg (Inpatient). Status is Inpatient Admission. Condition is Fair. Problem is an acute exacerbation. Symptoms have improved. jl7
--- NOTE | 2019-10-08 07:47 | ER ---
Nurse's Notes [facility] Name: Tex Vergara Age: 63 yrs Sex: Male : 1955 Arrival Date: 10/08/2019 Time: 06:16 Bed 3 Private MD: Diagnosis: Altered mental status, unspecified;Bradycardia, unspecified Presentation: 10/07 06:17 Chief complaint: EMS states: they were toned out for report of pt with altered mental bb status x 2 days family states pt has had multiple strokes and MIs in the past the last stroke was in March. Coronavirus screen: At this time, the client does not indicate any symptoms associated with coronavirus-19. Ebola Screen: No symptoms or risks identified at this time. Initial Sepsis Screen: Does the patient meet any 2 criteria? No. Patient's initial sepsis screen is negative. Does the patient have a suspected source of infection? No. Patient's initial sepsis screen is negative. Risk Assessment: Do you want to hurt yourself or someone else? Unable to obtain. Onset of symptoms was October 06, 2019. 06:17 Method Of Arrival: EMS: [facility] bb 06:17 Acuity: SUMMER 1 bb Historical: - Allergies: 06:28 No Known Allergies; bb - Home Meds: 06:28 amiodarone 200 mg oral tab 0.5 tab once daily [Active]; aspirin 81 mg oral chew 1 tab bb once daily [Active]; atorvastatin 40 mg oral tab 1 tab once daily [Active]; bupropion HCl 100 mg oral tab 1 tab daily [Active]; Eliquis 5 mg Oral tab 1 tab 2 times per day [Active]; furosemide 40 mg Oral tab 1 tab 2 times per day [Active]; ferrous sulfate 325 mg (65 mg iron) oral tab twice a day [Active]; magnesium oxide 400 mg Oral cap daily [Active]; Potassium Chloride 15 mL BID Oral [Active]; metoprolol tartrate 100 mg Oral tab 1 tab 2 times per day [Active]; metolazone 5 mg Oral tab 1 tab twice a day [Active]; quetiapine 25 mg oral tab 1 tab daily [Active]; tramadol 50 mg Oral tab [Active]; fluticasone inhalation inhalation [Active]; - PMHx: 06:28 Atrial Fib; CHF; COPD; Hypertension; stroke; TIA; bb - PSHx: 06:28 peg tube; heart transplant; CABG; bb - Immunization history:: Adult Immunizations unknown. - Social history:: Smoking status: unknown. Screenin:15 Abuse screen: Denies threats or abuse. Denies injuries from another. Nutritional rr5 screening: No deficits noted. Tuberculosis screening: No symptoms or risk factors identified. Fall Risk Secondary diagnosis (15 points) impaired mobility, CVA, IV access (20 points). Mental Status- Overestimates/Forgets Limitations (15 pts.). Total Jason Fall Scale indicates High Risk Score (45 or more points). Fall prevention measures have been instituted. Side Rails Up X 2 Placed Close to Nursing Station Frequent Obs/Assessments Occuring As available patient and family educated on Fall Prevention Program and Strategies. Assessment: 06:17 General: Appears in no apparent distress. unkempt, Behavior is listless. Pain: Unable rr5 to use pain scale. Patient appears withdrawn. Neuro: Level of Consciousness is listless. Cardiovascular: Capillary refill < 3 seconds Patient's skin is warm and dry. Rhythm is sinus bradycardia. Respiratory: Airway is patent Respiratory effort is even, unlabored, Respiratory pattern is regular, symmetrical. GI: PEG tube in place, Site clean. : No signs and/or symptoms were reported regarding the genitourinary system. EENT: No signs and/or symptoms were reported regarding the EENT system. Derm: Bruising that is dark purple, on right arm and left arm. Musculoskeletal: Capillary refill < 3 seconds. 06:43 Reassessment: Patient appears in no apparent distress at this time. send for CT scan. rr5 06:55 Reassessment: vomited in CT scan ED provider aware with order made and carried out. rr5 07:00 General: Appears in no apparent distress. ill, unkempt, Behavior is restless. Pain: jl7 Unable to use pain scale. Patient appears restless. Neuro: Level of Consciousness is listless, Oriented to none. Cardiovascular: Patient's skin is warm and dry. Rhythm is sinus bradycardia. Respiratory: Airway is patent Respiratory effort is even, unlabored, Respiratory pattern is regular, symmetrical. GI: PEG tube in place, Site clean. Derm: Bruising that is dark purple, on right gluteus nila, right arm and left arm. 08:00 Reassessment: Patient appears in no apparent distress at this time. No changes from [facility] previously documented assessment. 08:35 Reassessment: Dr. Morales at bedside assessing pt. VO for COVID-19 swab to be done in [facility] the ER prior to admission. 09:00 Reassessment: Patient appears in no apparent distress at this time. No changes from [facility] previously documented assessment. 09:10 Reassessment: Pt agitated, pulled right hand IV out. Bleeding stopped, gauze a Coban jl7 applied. 10:00 Reassessment: pt attempting to get out of bed, pt removed pulse ox and data assistant, [facility] sitter at bedside at this time. 11:00 Reassessment: Patient appears in no apparent distress at this time. No changes from [facility] previously documented assessment. Pt remains agitated and restless. 12:30 Reassessment: Pt remains agitated, attempted to pull at [place] and IVs, Dr. Morales [facility] notified, see [facility] for orders. 14:22 Reassessment: Pt remains restless, Dr. Morales notified, gave VO for 0.25 mg Ativan IVP. [facility] 14:59 Reassessment: Pt appears calm, resting with eyes closed, O2 sats at 98%, HR 57, no [facility] signs of distress noted. Updated ALMA Napolesphotographer still Nurse on 2nd Floor, pt transported to [facility] via stretcher with GUCCI Garg Tech. Vital Signs: 06:17 BP 124 / 57; Pulse 35; Resp 16 S; Temp 97.7(A); Pulse Ox 97% on R/A; Weight 72.57 kg bb (R); Pain 0/10; 06:45 BP 119 / 50; Pulse 38; Resp 15; Pulse Ox 98% ; rr5 07:05 BP 118 / 77; Pulse 36; Resp 17; Pulse Ox 97% ; jl7 07:20 BP 125 / 45; Pulse 36; Resp 17 S; Pulse Ox 97% on R/A; jl7 07:45 BP 122 / 48; Pulse 36; Resp 17 S; Pulse Ox 98% on R/A; jl7 08:30 BP 117 / 47; Pulse 37; Resp 17 S; Temp 98(C); Pulse Ox 99% on R/A; jl7 09:00 BP 125 / 49; Pulse 38; Resp 17; Pulse Ox 97% ; jl7 14:59 Pulse 57; Resp 19; Pulse Ox 98% ; jl7 Russell Coma Score: 06:15 Eye Response: to voice(3). Verbal Response: incomprehensible(2). Motor Response: rr5 localizes pain(5). Total: 10. ED Course: 06:15 EKG done, by ED staff, reviewed by Benito Hooker MD. rr5 06:16 Patient arrived in ED. cl3 06:17 Benito Hooker MD is Attending Physician. tw4 06:19 Triage completed. bb 06:20 Patient has correct armband on for positive identification. Placed in gown. Bed in low rr5 position. Call light in reach. Side rails up X2. personal assistant on. Pulse ox on. NIBP on. 06:20 Warm blanket given. rr5 06:20 Inserted saline lock: 22 gauge in right hand, using aseptic technique. ,using aseptic rr5 technique. inserted by bashir Fingooroo. 06:27 First set of blood cultures drawn by me. rr5 06:28 Arm band placed on Patient placed in an exam room, on a stretcher, on data assistant, bb on pulse oximetry. EKG completed in triage. Results shown to MD. 06:41 XRAY Chest (1 view) In Process Unspecified. EDMS 06:43 Inserted saline lock: 20 gauge in left hand, using aseptic technique. Blood collected. rr5 06:51 Ronnie Paul, RN is Primary Nurse. rr5 07:07 CT Head Brain wo Cont In Process Unspecified. EDMS 07:15 Attending Physician role handed off by Benito Hooker MD kdr 07:15 Carlos Olivier MD is Attending Physician. kdr 07:40 Second set of blood cultures drawn by me. Thermoregulation: warm blanket given to jl7 patient. 07:45 Luca Morales DO is Hospitalizing Provider. kdr 08:00 Speci-cath kit inserted, using sterile technique, 16 Fr., specimen obtained. returned jl7 cloudy urine. 08:15 Dressings: non-adherent dressing x 3 right arm and left arm Tegaderm X 3; right jl7 antecubital area, right elbow and left elbow. 08:54 COVID-19 swab sent to lab. jl7 11:45 COVID-19 Sent. jl7 12:49 No provider procedures requiring assistance completed. Patient admitted, IV remains in jl7 place. Administered Medications: 06:43 Drug: Glucagon 5 mg Route: IVP; Site: left hand; rr5 07:00 Follow up: Response: No adverse reaction jl7 07:30 Drug: NS 0.9% (30 ml/kg) 30 ml/kg Route: IV; Rate: bolus; Site: left hand; jl7 09:00 Follow up: Response: No adverse reaction; IV Status: Completed infusion; IV Intake: jl7 2000ml 07:45 Drug: Zosyn 3.375 grams Route: IVPB; Infused Over: 60 mins; Site: right hand; jl7 08:45 Follow up: Response: No adverse reaction; IV Status: Completed infusion jl7 12:45 Drug: Haloperidol 2 mg Route: IVP; Site: left hand; jl7 13:05 Follow up: Response: No change in condition jl7 12:49 Not Given (Pt not nauseous at this time): Zofran (Ondansetron) 4 mg IVP once; over 2 jl7 minutes 13:07 Drug: Geodon 10 mg Route: IM; Site: left deltoid; jl7 14:21 Follow up: Response: No adverse reaction; No change in condition jl7 14:22 Drug: Ativan 0.25 mg Route: IVP; Site: left hand; jl7 15:02 Follow up: Response: No adverse reaction; Marked relief of symptoms jl7 Intake: 09:00 IV: 2000ml; Total: 2000ml. jl7 Outcome: 07:47 Decision to Hospitalize by Provider. kdr 12:49 Admitted to Tele accompanied by tech, via stretcher, room 219, with chart, Report jl7 called to [facility] [place] 12:49 Condition: stable 12:49 Discharge instructions given to patient, Instructed on the need for admit. 15:03 Patient left the ED. jl7 Signatures: Dispatcher [employer] EDMS Carlos Olivier MD MD kdr Ballard, Brenda, RN RN bb Ryan Patel RN RN jl7 Benito Hooker MD MD tw4 Ronnie Paul RN RN rr5 Lety Becerra cl3 Corrections: (The following items were deleted from the chart) 08:52 07:40 Speci-cath kit inserted, using sterile technique, 16 Fr., specimen obtained. jl7 returned cloudy urine. jl7 12:48 12:47 Response: No adverse reaction; IV Status: Completed infusion; IV Intake: 2000ml jl7 jl7 15:02 09:00 BP 125 / 49; Pulse 83bpm; Resp 17bpm; Pulse Ox 97%; jl7 jl7
[2019-10-08 09:46] LABS: Urine Blood NEGATIVE (NEG); Urine Glucose NEGATIVE (NEG); Urine Protein NEGATIVE (NEG)
[2019-10-08] MEDS ORDERED: HALOPERIDOL LACT 5 MG/ML INJ ONE (12:49)
[2019-10-08] MEDS ORDERED: WATER FOR INJ,STERILE 10 ML ONE (13:10)
[2019-10-08] MEDS ORDERED: ZIPRASIDONE MESYLA 20 MG/VIAL IM ONE (13:10)
--- NOTE | 2019-10-08 14:22 | P.HP ---
Certification for Inpatient Patient admitted to: Inpatient With expected LOS: >2 Midnights Patient will require the following post-hospital care: Other ([facility]PC placement versus hospice) Practitioner: I am a practitioner with admitting privileges, knowledge of patien t current condition, hospital course, and medical plan of care. Services: Services provided to patient in accordance with Admission requirements found in Title 42 Section 412.3 of the Code of Federal Regulations Patient History Date of Service: 10/08/19 Primary Care Provider: Dr. Foster([facility]) Reason for admission: Altered mental status History of Present Illness: 63-year-old male with history of atrial fibrillation on chronic anti coagulation therapy, hypertension, hyperlipidemia, chronic renal disease. Most of the information came from the daughter as the patient presented with altered mental status. Daughter reports the patient was recently hospitalized and sent to [facility] for continued management. The patient was discharge from rehabilitation on October 01. 2 days after the daughter noted increase seen altered mental status. The patient became more confused and combative at home. There was no mention of fever, shortness of breath. Patient had poor oral intake. His agitation he continued to progress. Patient came to the ER for further evaluation. Vital signs stable. Hemoglobin 10.3, white count 10.5, sodium 141, potassium 4.1, BUN of 39, creatinine 1.7 with a GFR 40. Glucose 96. Lactic acid 4.3. Chest x-ray unremarkable. CT head unremarkable. Patient was given IV fluids. Patient admitted for further evaluation. When I saw the patient ER, patient appeared dry. Not able to get adequate history. As mentioned above. Most of history came from the daughter. Daughter reports that lost in April of this year. It appears that he has been declining in health since that time. It has been getting more difficult to take care of the patient at her home as she has kids.. Allergies No Known Allergies Allergy (Verified 05/15/18 11:25) Home medications list reviewed: Yes Home Medications: Apixaban [Eliquis] 5 mg PO BID 03/11/19 Furosemide 40 mg FT BID 03/11/19 Amiodarone HCl [Cordarone*] 200 mg FT BID 08/22/19 Aspirin Chewable [Aspirin Chewable*] 81 mg FT DAILY 08/22/19 Atorvastatin Calcium [Lipitor] 40 mg FT BEDTIME 08/22/19 Ferrous Sulfate [Ferrous Sulfate*] 325 mg FT BID 08/22/19 Midodrine HCl [Proamatine*] 5 mg FT TID 08/22/19 Bupropion HCl [Wellbutrin Sr] 100 mg FT DAILY 08/30/19 Lactulose [Cephulac*] 30 ml PO BID #1800 ml 09/01/19 Potassium Chloride 15 ml FT BID #1000 09/01/19 Metoprolol Tartrate [Lopressor] 100 mg PO BID 09/10/19 Quetiapine [Seroquel*] 0.5 tab FT DAILY 09/10/19 Tramadol HCl [Ultram] 50 mg FT BID PRN 09/10/19 Trazodone [Desyrel*] 50 mg FT BEDTIME PRN 09/10/19 metOLazone [Metolazone] 2 tab FT DAILY 09/10/19 - Past Medical/Surgical History Diabetic: No -: Hypertension -: Chronic back pain -: CHF -: Atrial Fibrillation -: History of CVA -: Depression -: COPD -: Dysphagia now with PEG tube -: Back surgery -: CABG -: PEG tube Psychosocial/ Personal History: Patient lives at home with his daughter - Family History Mother -: Heart disease Notes: Multiple strokes - Social History Smoking Status: Unknown if ever smoked Alcohol use: No CD- Drugs: No Caffeine use: Yes Place of Residence: Home Review of Systems is unable to be obtained Physical Examination - Physical Exam General: Other (Patient confused. Some agitation noted. Patient does not follow commands.) HEENT: Other (Dry mucous membranes) Neck: Supple Respiratory: Clear to auscultation bilaterally, Normal air movement Cardiovascular: Normal pulses, Regular rate/rhythm Gastrointestinal: Normal bowel sounds Integumentary: Other (Muscle wasting to the upper lower extremities. Patient appears malnourished) Neurological: Normal strength at 5/5 x4 extr, Other (Patient able to move all 4s) - Studies Laboratory Data (last 24 hrs) 10/08/19 06:27: PT 26.7 H, INR 2.30 10/08/19 06:27: WBC 10.5, Hgb 10.3 L, Hct 31.5 L, Plt Count 313 10/08/19 06:27: Sodium 141, Potassium 4.1, BUN 39 H, Creatinine 1.74 H, Glucose 96, Magnesium 2.5 H D, Total Bilirubin 0.8, AST 53 H, ALT 60, Alkaline Phosphatase 193 H Assessment and Plan - Plan Impression: Altered mental status likely metabolic encephalopathy complicated with acute renal failure likely from dehydration and poor nutrition Bradycardia with history of Atrial fibrillation on chronic anti coagulation therapy Hypertension Chronic diastolic CHF History of CVALikely underlying dementia History of dysphagia now with PEG tube Moderate protein malnutrition Anemia of chronic disease Plan: Altered mental status likely metabolic encephalopathy complicated with acute renal failure likely from dehydration and poor nutrition: Patient we admitted for further evaluation and treatment. Doubt sepsis at this time. Will hold off on antibiotic therapy. Will obtain blood and urine culture. Urinalysis negative. Chest x-ray negative. Will start IV fluids. Monitor renal function closely. Will obtained MRI for further evaluation. Will consult Nephrology and Neurology for further recommendation. Also consult Cardiology due to bradycardia. Will hold metoprolol at this time. Continue amiodarone. Case discussed at length with daughter who has medical power of employment law attorney. Advanced directives and advanced care planning address in detail. Patient is do not resuscitate. Daughter wishes for the patient to be in long-term care. Will discuss with criminal justice social worker to help with this. Will consider long-term care or hospice at discharge. Bradycardia with history of Atrial fibrillation on chronic anti coagulation therapy: Continue to hold metoprolol. Continue amiodarone and Eliquis. Will monitor closely. Will discuss further with cardiology. Hypertension: Blood pressure stable this time. Will hold lisinopril due to renal function Chronic diastolic CHF: Hold Lasix at this time due to acute renal failure History of CVA Likely underlying dementia: Continue as above. Will discuss further with Neurology. History of dysphagia now with PEG tube: Consult dietary for recommendations Moderate protein malnutrition: Consult dietary for recommendation Anemia of chronic disease: Will monitor this closely. Advance care planning addressed total min 30 min Discharge Plan: Other ([facility]PC placement for long-term care versus hospice at home) Plan to discharge in: Greater than 2 days - Advance Directives Does patient have a Living Will: No Does patient have a Durable POA for Healthcare: No - Code Status/Comfort Care Code Status Assessed: Yes (Discuss with medical power of employment law attorney. Patient DNR) Time Spent Managing Pts Care (In Minutes): 55
[2019-10-08] MEDS ORDERED: LORazepam 2 MG/ML VIAL ONE (14:28)
[2019-10-08] MEDS ORDERED: D5 0.9 NS 1,000 ML IV SCH (16:01)
[2019-10-08] MEDS ORDERED: HALOPERIDOL LACT 5 MG/ML INJ IV PRN (16:01)
[2019-10-08] MEDS ORDERED: ONDANSETRON 4 MG/2 ML VIAL IV PRN (16:01)
[2019-10-08] MEDS ORDERED: LACTULOSE 20 GM/30 ML UCUP FT PRN (16:01)
[2019-10-08] MEDS ORDERED: ACETAMINOPHEN 500 MG TAB FT PRN (16:01)
[2019-10-08] MEDS ORDERED: D5W 0 ML IV ONE (16:17)
[2019-10-08] MEDS ORDERED: D5 0.9 NS 1,000 ML IV ONE (16:22)
[2019-10-08 16:26] VITALS: BMI 25.8
[2019-10-08 17:11] LABS: C-Reactive Protein 34.1 mg/L (<3.00); CKMB Creatine Kinase MB 1.1 ng/mL (0.3-3.6); Troponin I 0.03 ng/mL (0.0-0.045)
[2019-10-08] MEDS: DULERA 100/5 (MOMETASONE/FORMOTEROL) INHALER IH SCH (21:00)
[2019-10-08] MEDS: AMIODARONE HCL 200 MG TAB FT SCH (22:36)
[2019-10-08] MEDS: ATORVASTATIN 40 MG TAB FT SCH (22:36)
[2019-10-08] MEDS: APIXABAN 5 MG TABLET FT SCH (22:37)
[2019-10-08] MEDS: LACTULOSE 20 GM/30 ML UCUP FT SCH (22:37)
[2019-10-08] MEDS: LORazepam 2 MG/ML VIAL IV PRN (22:59)
[2019-10-09 01:11] LABS: CKMB Creatine Kinase MB 1.9 ng/mL (0.3-3.6); Troponin I 0.08 ng/mL (0.0-0.045)
[2019-10-09 03:49] LABS: Absolute Lymphocytes (CBC) 0.9 K/uL (0.7-4.9); Basophils % 0.8 % (0-1.3); Hematocrit 28.4 % (39.6-49.0); Lymphocytes % 3.2 % (15.3-44.8); RBC Red Blood Cell Count 3.69 M/uL (4.33-5.43)
[2019-10-09] MEDS: WATER FOR INJ,STERILE 10 ML IM PRN (04:40)
[2019-10-09] MEDS: ZIPRASIDONE MESYLA 20 MG/VIAL IM PRN (04:45)
[2019-10-09 04:49] LABS: Blood Morphology Comment NOTED (NOT SEEN); Ovalocytes 2+; Platelet Estimate ADEQ
[2019-10-09 07:23] LABS: Protime INR 3.78
--- NOTE | 2019-10-09 07:30 | EKG ---
Test Date: 2019-10-08 Test Time: 06:25:16 Dog Day Care Attendant: MEASUREMENT RESULTS: Intervals: Rate: 36 MS: 162 QRSD: 138 QT: 756 QTc: 584 [place]: P: 80 MS: 162 QRS: 29 T: 48 INTERPRETIVE STATEMENTS: Marked sinus bradycardia Left ventricular hypertrophy with QRS widening T wave abnormality, consider lateral ischemia Abnormal ECG Compared to ECG 09/08/2019 03:02:50 Left ventricular hypertrophy now present T-wave abnormality now present Possible ischemia now present Atrial fibrillation no longer present Left bundle-branch block no longer present Electronically Signed On 10-09-19 07:28:42 CDT by Gabriel Monsalve
[2019-10-09 07:42] LABS: ALT/SGPT 48 U/L (12-78); AST/SGOT 55 U/L (15-37); Albumin 1.9 g/dL (3.4-5.0); Alkaline Phosphatase 124 U/L (45-117); BUN Blood Urea Nitrogen 42 mg/dL (7-18); Bicarbonate 34 mmol/L (21-32); Bilirubin Total 1.3 mg/dL (0.2-1.0); Glucose Level 118 mg/dL (74-106); HDL Cholesterol 34 mg/dL (40-60); Magnesium 2.5 mg/dL (1.8-2.4); Protein, Total 5.5 g/dL (6.4-8.2); Sodium Level 146 mmol/L (136-145)
[2019-10-09 07:46] LABS: LDL Cholesterol, Calculated 10 (<130)
[2019-10-09] MEDS ORDERED: D5 0.45 NS 1,000 ML IV SCH (08:00)
[2019-10-09] MEDS: AMIODARONE HCL 200 MG TAB FT SCH ×2 (08:39→21:20)
[2019-10-09] MEDS: APIXABAN 5 MG TABLET FT SCH ×2 (08:40→21:20)
[2019-10-09] MEDS: DULERA 100/5 (MOMETASONE/FORMOTEROL) INHALER IH SCH ×2 (08:40→21:20)
[2019-10-09] MEDS: LACTULOSE 20 GM/30 ML UCUP FT SCH ×3 (08:40→21:20)
[2019-10-09] MEDS: JEVITY 1.5 CAL LIQUID 1,000 ML BOT FT SCH ×4 (11:04→21:21)
[2019-10-09] MEDS: LORazepam 2 MG/ML VIAL IV PRN ×2 (11:05→17:21)
--- NOTE | 2019-10-09 11:53 | RAD REPORT ---
EXAM DESCRIPTION: Trent Single View10/09/2019 11:36 am CLINICAL HISTORY: Chest pain COMPARISON: October 08, 2019 FINDINGS: The right hemithorax has become more hazy. Prominent reticulonodular opacities within the left lung. The heart is enlarged IMPRESSION: Prominent reticulonodular opacities left lung may indicate aspiration pneumonia Right hemithorax has become more hazy which may indicate right pneumonia superimposed over pleural th ickening/effusion
--- NOTE | 2019-10-09 13:35 | P.PN ---
Subjective Date of Service: 10/09/19 Primary Care Provider: Dr. Foster([facility]) Chief Complaint: Altered mental status Physical Examination - Vital Signs Temperature: 97.0 F Blood Pressure: 123/57 Pulse: 41 Respirations: 17 Pulse Ox (%): 100 - Studies Microbiology Data (last 24 hrs): 10/08/19 07:40 Blood - Blood Anaerobic Blood Culture - Final Assessment & Plan Discharge Plan: Long Term Plan to discharge in: Greater than 2 days Physician Review Additional Text: Impression: Altered mental status likely metabolic encephalopathy complicated with acute re nal failure likely from dehydration and poor nutrition now with aspiration pneumonia Bradycardia with history of Atrial fibrillation on chronic anti coagulation therapy Hypertension Chronic diastolic CHF History of CVALikely underlying dementia History of dysphagia now with PEG tube Moderate protein malnutrition Anemia of chronic disease Plan: Altered mental status likely metabolic/toxic encephalopathy complicated with acute renal failure likely from dehydration and poor nutrition now with aspiration pneumonia: Patient required medication for agitation yesterday. Spoke with Neurology yesterday. EEG recommended. MRI brain pending. White count elevated. Suspect aspiration pneumonia. Will start IV Zosyn. Will consult pulmonology. Await recommendations from nephrology. Patient continues with his medications. Case discussed with cardiology. Cardiology recommends no further intervention at this time. Continue off metoprolol. Patient may c ontinue with amiodarone. Patient on chronic anti coagulation therapy. Case also discuss with daughter. Daughter desires patient to go to a long-term care facility. Daughter reports patient has declined in health. Social work to help with this. Will continue to monitor closely. Await blood and sputum cultures. Bradycardia with history of Atrial fibrillation on chronic anti coagulation therapy: Continue to hold metoprolol. Continue amiodarone and Eliquis. Will monitor closely. Spoke with cardiology. Cardiology agrees to plan of care.. Hypertension: Blood pressure stable this time. Will hold lisinopril due to renal function Chronic diastolic CHF: Hold Lasix at this time due to acute renal failure History of CVA Likely underlying dementia: Continue as above. Will discuss further with Neurology. History of dysphagia now with PEG tube: Consult dietary for recommendations Moderate protein malnutrition: Consult dietary for recommendation Anemia of chronic disease: Will monitor this closely. Time Spent Managing Pts Care (In Minutes): 55
--- NOTE | 2019-10-09 14:35 | RAD REPORT ---
EXAM DESCRIPTION: MRI - Brain Wo Cont - 10/09/2019 2:24 pm CLINICAL HISTORY: encephalopathy, likely from ARF, altered mental status, CVA COMPARISON: Head Brain Wo Cont dated 10/08/2019 TECHNIQUE: Sagittal T1-weighted images were obtained along with axial PD, heavily T2-weighted and T2 -FLAIR images. Axial DWI and ADC mapping sequences were also obtained along with coronal heavily T2-w eighted images. FINDINGS: The exam has very substantial motion degradation limitations. Numerous sequences had to be repeated multiple times. No intracranial hemorrhage, mass or acute infarction. There is no edema or shift of midline structure s. No extra-axial fluid collections. Small-matter/white matter junction is preserved. Signal voids are seen as a normal finding in the major intracranial vessels. Patient has mild atrophy. Scattered whit e matter T2 signal abnormalities are present consistent with chronic ischemic change. No globe or orbital content acute finding. Mastoid air cells and paranasal sinuses are clear. IMPRESSION: Motion degraded study shows no evidence for an acute infarction. No hemorrhage, mass or acute intracranial finding seen. Atrophy and chronic ischemic changes are present matching the CT study. Ventricles are in proportion to the volume loss.
[2019-10-09 15:20] LABS: Potassium 3.1 mmol/L (3.5-5.1)
[2019-10-09] MEDS: PIPER/TAZO/NS 2.25gm 2.25 GM/50 ML BAG IVPB SCH (17:20)
--- NOTE | 2019-10-09 17:46 | P.CNS ---
Date of Consult: 10/09/19 Reason for Consult: JON Requesting Physician: Luca Morales Primary Care Provider: Dr. Foster([facility]) Chief Complaint: Altered mental status History of Present Illness: 63 yo WM presented to the ER with AMS. Limited HPI/ ROS due to AMS. 06:17 Chief complaint: EMS states: they were toned out for report of pt with altered mental bb status x 2 days family states pt has had multiple strokes and MIs in the past the last stroke was in March Allergies No Known Allergies Allergy (Verified 05/15/18 11:25) Home Medications: Amiodarone HCl [Cordarone Tab] 0.5 tab FT DAILY 10/09/19 Apixaban [Eliquis] 1 tab FT BID 10/09/19 Aspirin [Aspirin EC 81 MG] 1 tab FT DAILY 10/09/19 Atorvastatin Calcium 1 tab FT DAILY 10/09/19 Ferrous Sulfate [Ferrous Sulfate*] 1 tab FT BID 10/09/19 Fluticasone [Flonase [employer] [place]*] 2 spray JELENA DAILY 10/09/19 Furosemide [Lasix] 40 mg FT DAILY 10/09/19 Lactulose [Cephulac*] 30 ml FT BID 10/09/19 Magnesium Oxide [Mag 0X*] 1 tab FT DAILY 10/09/19 Midodrine HCl [Proamatine] 5 mg FT BID 10/09/19 Trazodone [Desyrel*] 1 tab FT BEDTIME 10/09/19 - Past Medical/Surgical History Diabetic: No -: Hypertension -: Chronic back pain -: CHF -: Atrial Fibrillation -: History of CVA -: Depression -: COPD -: Dysphagia now with PEG tube -: Back surgery -: CABG -: PEG tube Psychosocial/ Personal History: Patient lives at home with his daughter - Family History Mother Medical History: Heart disease Notes: Multiple strokes - Social History Smoking Status: Unknown if ever smoked Alcohol use: No CD- Drugs: No Caffeine use: Yes Place of Residence: Home Review of Systems is unable to be obtained Physical Examination Temp Pulse Resp BP Pulse Ox 97.1 F 40 L 17 118/62 97 10/09/19 16:00 10/09/19 16:00 10/09/19 16:00 10/09/19 16:00 10/09/19 16:00 General: Unresponsive HEENT: Atraumatic, Normocephalic Neck: Supple Respiratory: Clear to auscultation bilaterally Cardiovascular: No edema, Regular rate/rhythm Gastrointestinal: Soft and benign, Non-distended Musculoskeletal: No clubbing, No contractures Integumentary: No rashes, No cyanosis Neurological: Abnormal tone Blood work reviewed in the chart. Imagings Data: EXAM DESCRIPTION: Trent Single View10/09/2019 11:36 am CLINICAL HISTORY: Chest pain COMPARISON: October 08, 2019 FINDINGS: The right hemithorax has become more hazy. Prominent reticulonodular opacities within the left lung. The heart is enlarged IMPRESSION: Prominent reticulonodular opacities left lung may indicate aspiration pneumonia Right hemithorax has become more hazy which may indicate right pneumonia superimposed over pleural thickening/effusion Conclusions/Impression: A/ JON/ CKD III Hypernatemia/ Dehydration Hypokalemia Hypocalcemia Anemia in chronic illness Severe malnutrition Dysphagia sp PEG Toxic metabolic encephalopathy. P/ Continue current POC and Medications. Increase IVF. Give potassium. May need to increase free water for tube feedings. Consider Vitamin D. No NSAIDs. AM labs. Daily weight. Check iron. Thank you kindly for the consultation.
[2019-10-09] MEDS ORDERED: POTASSIUM 25 MEQ EFFERV TAB FT ONE (18:00)
[2019-10-09] MEDS: D5 0.45 NS 1,000 ML IV SCH (18:28)
[2019-10-09] MEDS: ATORVASTATIN 40 MG TAB FT SCH (21:20)
[2019-10-10] MEDS: PIPER/TAZO/NS 2.25gm 2.25 GM/50 ML BAG IVPB SCH ×3 (00:27→18:29)
[2019-10-10] MEDS: D5 0.45 NS 1,000 ML IV SCH ×4 (04:00→19:18)
[2019-10-10 06:21] LABS: Protime INR 2.87
[2019-10-10 06:22] LABS: Absolute Lymphocytes (CBC) 0.9 K/uL (0.7-4.9); Basophils % 0.3 % (0-1.3); Hematocrit 28.9 % (39.6-49.0); Lymphocytes % 5.5 % (15.3-44.8); MPV 10.8 fL (7.6-11.3); RBC Red Blood Cell Count 3.73 M/uL (4.33-5.43)
[2019-10-10 07:03] LABS: Albumin 1.9 g/dL (3.4-5.0); Bilirubin Total 1.2 mg/dL (0.2-1.0); Folic Acid, (Folate) 12.6 ng/mL (3.1-17.5); Magnesium 2.5 mg/dL (1.8-2.4); Protein, Total 5.8 g/dL (6.4-8.2); Uric Acid 5.3 mg/dL (3.5-7.2)
[2019-10-10 07:58] LABS: Potassium 2.8 mmol/L (3.5-5.1)
[2019-10-10] MEDS: JEVITY 1.5 CAL LIQUID 1,000 ML BOT FT SCH ×5 (08:00→21:00)
[2019-10-10] MEDS ORDERED: POTASSIUM 25 MEQ EFFERV TAB PO ONE ×2 (08:00→10:00)
--- NOTE | 2019-10-10 08:12 | CON ---
Date of Consultation: 10/09/2019 The patient admitted on 10/08/[address] Morales. I saw the patient on 10/09/2019. Reason For Consultation: Bradycardia and history of atrial fibrillation. History Of Present Illness: Mr. Vergara is a 63-year-old white male. He is a do not resuscitate. He came in with hepatic encephalopathy, was found to be bradycardic. Initially had a heart rate of 38 w hich went up to 52. It is of note that the patient at home takes amiodarone and metoprolol for his a trial fibrillation. The metoprolol has been held, his amiodarone is at 200 b.i.d. He remained ekaterina cardic, but no cardiac symptoms. He came in mostly with encephalopathy and was found to have a white count of 27,000. His creatinine was 1.74. His hemoglobin was 9.2. He had a CT of his head that sh owed chronic ischemic changes. Chest x-ray showed chronic interstitial lung disease. His INR was 2. 3. His lactic acid was 5. The thyroid was pending. His BNP was 4287. He did not report any chest pain, nausea, vomiting, diaphoresis, PND, orthopnea, pedal edema, palpitation, or syncope. Past Medical History: 1.Extensive and includes atrial fibrillation. 2.COPD. 3.CVA. 4.History of TIA. 5.Chronic renal disease. 6.Hypertension with orthostatic hypotension. 7.Dyslipidemia. 8.Chronic diastolic congestive heart failure. 9.History of aortic valve replacement. 10.History of PEG tube. Allergies: NONE. Review of Systems: Negative. Social History: Negative. Family History: Noncontributory. Medications: At home include metolazone, midodrine, amiodarone, Eliquis, Lipitor, aspirin, Lasix, me toprolol. Physical Examination: General: Mr. Vergara was awake, alert and oriented x1. Vital Signs: His heart rate was 62. His vital signs were stable, otherwise, he was afebrile. He wa s in sinus ekaterina. HEENT: Negative. Neck: Supple. No bruit. Chest: Clear. Cardiac: Revealed regular rhythm and rate. No murmurs, gallops, or rubs. Abdomen: Benign. Extremities: Revealed no clubbing, cyanosis. He had 1+ edema. Diagnostic Data: As stated earlier. Echocardiogram in August of 2019 showed a normal ejection fractio n with aortic sclerosis, but no stenosis. Ammonia level was elevated. Impression And Plan: 1.Bradycardia secondary to amiodarone and metoprolol combination. I think the metoprolol should be held. The amiodarone should be cut down by half. Eliquis should stay on board. 2.DNR status. 3.Hepatic encephalopathy, elevated ammonia level. Nephrology and Neurology are involved. 4.History of chronic renal disease. 5.History of dyslipidemia. 6.History of hypertension with orthostatic hypotension. 7.Chronic obstructive pulmonary disease. 8.History of cerebrovascular accident and transient ischemic attack. 9.Chronic diastolic congestive heart failure, stable. 10.History of aortic valve replacement. 11.Anemia. 12.Elevated white count. Mr. Vergara's medical regimen should be continued, except for the metoprolol and decrease amiodarone do se as stated earlier. He had an EEG pending. Nephrology and Neurology consultation are pending. Fr om a cardiovascular standpoint, he has chronic diastolic congestive heart failure and aortic valve re placement with a recent echocardiogram showing normal function of his aortic valve. I do not do not have much to add to Mr. Vergara. I think hospice care is being sought by Dr. Morales. I will be availa ble for questions if the need arises. LAY/ELIUDL Voice ID: [id number] Report ID: [id number]
[2019-10-10] MEDS: THIAMINE 200 MG/2 ML INJ IVP SCH (09:00)
[2019-10-10] MEDS: DULERA 100/5 (MOMETASONE/FORMOTEROL) INHALER IH SCH (09:00)
[2019-10-10] MEDS ORDERED: KCL 20 MEQ/100 mL IVPB 20 MEQ/100 ML BAG IV SCH (09:00)
[2019-10-10] MEDS: APIXABAN 5 MG TABLET FT SCH (09:16)
[2019-10-10] MEDS: AMIODARONE HCL 200 MG TAB FT SCH (09:16)
[2019-10-10] MEDS: LACTULOSE 20 GM/30 ML UCUP FT SCH ×3 (09:16→21:25)
--- NOTE | 2019-10-10 09:46 | P.PN ---
Subjective Date of Service: 10/10/19 Primary Care Provider: Dr. Foster([facility]) Chief Complaint: Altered mental status Subjective: Improving (Patient more alert today. Less agitation noted) Physical Examination - Vital Signs Temperature: 96.8 F Blood Pressure: 165/69 Pulse: 69 Respirations: 19 Pulse Ox (%): 92 - Physical Exam General: Alert, Demented, Other (Less agitation noted) Neck: Supple Respiratory: Clear to auscultation bilaterally, Normal air movement Cardiovascular: Normal pulses, Regular rate/rhythm Neurological: Normal strength at 5/5 x4 extr, Dementia - Studies Microbiology Data (last 24 hrs): 10/08/19 07:40 Blood - Blood Anaerobic Blood Culture - Final Medications List Reviewed: Yes Assessment & Plan Discharge Plan: Jail Plan to discharge in: 24 Hours Physician Review Additional Text: Impression: Altered mental status likely metabolic encephalopathy complicated with acute renal failure likely from dehydration and poor nutrition now with aspiration pneumonia Bradycardia with history of Atrial fibrillation on chronic anti coagulation therapy Hypertension Chronic diastolic CHF History of CVALikely underlying dementia History of dysphagia now with PEG tube Moderate protein malnutrition Anemia of chronic disease Plan: Altered mental status likely metabolic/toxic encephalopathy complicated with acute renal failure likely from dehydration and poor nutrition now with aspiration pneumonia: Continue with IV Zosyn. Renal function improved. Continue with dietary recommendations for feeding through feeding tube. Will decrease IV fluids. Potassium to be replaced. Blood cultures negative. Wean off oxygen. MRI brain shows no acute stroke. Patient remains off metoprolol. Continue amiodarone. Continue chronic anti coagulation therapy. Will discuss further with cardiology, neurology and Nephrology. Spoke with daughter at length who has medical power of corporate associate attorney. She agrees with long-term care- snf. Will discuss with social insurance adviser to help with this. She will need to look in to possible hospice in the future at the snf. Bradycardia with history of Atrial fibrillation on chronic anti coagulation therapy: Continue to hold metoprolol. Continue amiodarone and Eliquis. Will monitor closely. Spoke with cardiology. Cardiology agrees to plan of care.. Hypertension: Blood pressure stable this time. Will hold lisinopril due to renal function. Will add additional medication if required. Chronic diastolic CHF: Hold Lasix at this time due to acute renal failure History of CVA Likely underlying dementia: Continue as above. MRI brain negative. EEG pending. Will discuss further with Neurology. History of dysphagia now with PEG tube: Continue dietary recommendations Moderate protein malnutrition: Continue dietary recommendation Anemia of chronic disease with iron deficiency: Will monitor this closely. Restart iron Time Spent Managing Pts Care (In Minutes): 55
--- NOTE | 2019-10-10 11:33 | P.CNS ---
Date of Consult: 10/10/19 Primary Care Provider: Dr. Foster([facility]) Chief Complaint: Altered mental status History of Present Illness: Patient is 63 years of age with multiple medical problems and chronic anticoagulation hypertension hyperlipidemia chronic renal disease presented with altered mental status still very alter does not communicate and delirious was recently hospitalized was discharged from rehab he still continues to be confused combative at home Allergies No Known Allergies Allergy (Verified 05/15/18 11:25) Home Medications: Amiodarone HCl [Cordarone Tab] 0.5 tab FT DAILY 10/09/19 Apixaban [Eliquis] 1 tab FT BID 10/09/19 Aspirin [Aspirin EC 81 MG] 1 tab FT DAILY 10/09/19 Atorvastatin Calcium 1 tab FT DAILY 10/09/19 Ferrous Sulfate [Ferrous Sulfate*] 1 tab FT BID 10/09/19 Fluticasone [Flonase 50MCG Nasal Dazey*] 2 spray JELENA DAILY 10/09/19 Furosemide [Lasix] 40 mg FT DAILY 10/09/19 Lactulose [Cephulac*] 30 ml FT BID 10/09/19 Magnesium Oxide [Mag 0X*] 1 tab FT DAILY 10/09/19 Midodrine HCl [Proamatine] 5 mg FT BID 10/09/19 Trazodone [Desyrel*] 1 tab FT BEDTIME 10/09/19 - Past Medical/Surgical History Diabetic: No -: Hypertension -: Chronic back pain -: CHF -: Atrial Fibrillation -: History of CVA -: Depression -: COPD -: Dysphagia now with PEG tube -: Back surgery -: CABG -: PEG tube Psychosocial/ Personal History: Patient lives at home with his daughter - Family History Mother Medical History: Heart disease Notes: Multiple strokes - Social History Smoking Status: Unknown if ever smoked Alcohol use: No CD- Drugs: No Caffeine use: Yes Place of Residence: Home Review of Systems is unable to be obtained Physical Examination Temp Pulse Resp BP Pulse Ox 96.8 F 69 19 165/69 H 92 10/10/19 09:46 10/10/19 09:46 10/10/19 09:46 10/10/19 09:46 10/10/19 09:46 General: Delirious Respiratory: Clear to auscultation bilaterally Gastrointestinal: Normal bowel sounds Integumentary: Erythema - Problems (1) Delirium Current Visit: Yes Status: Acute Plan: Patient is 63 years of age multiple medical month problems admitted in a delirious state renal function is improving patient is anti coagulated MRI of the brain does not show any evidence of stroke add cultures are negative patient appears to have a loculated effusion on the right side white count is declining presumed sepsis urinalysis is negative amador virus test is also negative he m ay have cirrhosis of the liver ammonia level is at an elevated CT scan shows some nodularity tsh is only minimally elevated chief free T4 is normal doubt hypothyroidism patient is high risk for bleeding consider stopping anticoagulation using aspirin instead
[2019-10-10 12:25] LABS: Arterial Blood Carboxyhemoglob 2.3 % (0-1.5); Blood Gas Oxyhemoglobin 87.3 % (94-97); Blood O2 Saturation 89.8 % (92-98.5)
[2019-10-10] MEDS: IPRATROPIUM BROM 0.5MG/2.5ML NEB SCH ×2 (13:40→20:15)
--- NOTE | 2019-10-10 15:22 | RAD REPORT ---
EXAM DESCRIPTION: CT - Chest Abd Pelvis Wo Con - 10/10/2019 3:11 pm CLINICAL HISTORY: Chest and abdomen pain. aspiration pneumonia, sepsis source COMPARISON: Chest Angio dated 05/11/2017; Brain Wo Cont dated 10/09/2019; Head Brain Wo Cont dated 09/26; Head Brain Wo Cont dated 09/08/2019; Chest Abdomen Pelvis W Cont dated 08/29/2019 TECHNIQUE: A limited noncontrast examination was performed. All CT scans are performed using dose optimization technique as appropriate and may include automated exposure control or mA/KV adjustment according to patient size. FINDINGS: Small left pleural effusion and small right hydropneumothorax noted.Large area of airspace consolidation is seen in the posterior right lung likely representing pneumonia. Mild linear atelect asis is present in the left lung base. Mild COPD.Aneurysmal dilatation of the aortic root is unchange d measuring 5 cm. No pericardial fluid.No intrathoracic adenopathy. Small gallstone in the gallbladder. The liver, spleen, pancreas, adrenal glands and kidneys show no a cute process. Aortoiliac atherosclerosis. Gastrostomy tube is in place. No bowel obstruction, free air, free fluid or abscess. The appendix is not identified as a discrete s tructure, however, no secondary findings of appendicitis are identified. No pathologic lymphadenopa thy in the abdomen or pelvis. Mild lumbar degenerative changes. IMPRESSION: Large area of airspace consolidation in the right lung is present most compatible with p neumonia. Small left pleural effusion and small right hydropneumothorax is noted.
--- NOTE | 2019-10-10 17:42 | CON ---
Reason For Consultation: Consultation called because of altered mental status. History Of Present Illness: Mr. Vergara is a 63-year-old patient with multiple medical problems includ ing chronic atrial fibrillation on anticoagulation, hypertension, dyslipidemia, chronic renal failure , who was discharged from rehabilitation on October 01, went home, 2 days later was more confused, di soriented, and combative. The patient was brought by his daughter to the hospital, [facility]. He d id have an elevated lactic acid level of 4.3, low procalcitonin is seen. Head CT was unremarkable. Chest x-ray did suggest a right pneumonia. Subsequent white blood cell count did elevate to 27,600 w ith neutrophils 92.9%, band neutrophils were 10. He was treated with antibiotics including Zosyn int ravenously. Further ammonia was elevated to 83, and he was treated with lactulose. Past Medical History: Significant for congestive heart failure, prior stroke, depression, COPD, dysp hagia. He is on a PEG tube after the stroke. Surgical History: Back surgery, coronary artery bypass grafting, and PEG tube. Medications: Eliquis 5 mg twice daily, Lasix 40 mg twice daily. Cordarone 200 mg twice daily, aspir in 81 mg daily, Lipitor 40 mg at bedtime. Ferrous sulfate 320 mg daily, midodrine 5 mg 3 times daily . Wellbutrin 100 mg daily. Lactulose 30 mL twice daily, metoprolol 100 mg twice daily. Seroquel 25 mg daily, Ultram 50 mg twice daily. Desyrel 50 mg at bedtime and metolazone 2 tablets daily. Family History: Mother with heart disease and strokes. Social History: Denies any recent alcohol or tobacco use. Review of Systems: At this point, not reliable. The patient answers in simple 1 or 2 word responses, although he does f ollow simple commands and eventually moves his arms and legs when asked to, with repeated encourageme nt. Physical Examination: Vital Signs: Blood pressure 145/70, pulse 68, respiratory rate 16, temperature 97.7, oxygen saturati on 93% on room air, weight 106 pounds, height 5 feet 6 inches, BMI 25.8. General: Mr. Vergara is in bed. He does appear to have a lot of bruising on his left arm. PEG tube i s in place. Appears to be very disheveled, unkempt. Poor dentition and generally does have some dec reased breath sounds, more on the right. Abdomen: Soft. Extremities: Show some bruising in the arms and the legs. No significant edema. Neurological: He is somewhat sleepy but is arousable and does follow simple commands with repeated e ncouragement again to move the arms and legs and they were equal in terms of movement and has respons es, sensations symmetric. Reflexes depressed and symmetric. Unable to fully assess his coordination and gait. His brain MRI showed no acute ischemic or hemorrhagic change. There was mild central ner vous system atrophy. Most recent chest x-ray done yesterday identified prominent reticulonodular opa cities in the left lung, which indicate aspiration pneumonia. The right hemithorax is more hazy bria cating a right pneumonia superimposed on pleural thickening and effusion. Assessment: Mr. Vergara is a 63-year-old patient with likely a toxic encephalopathy secondary to his p neumonia. He does not have evidence of a stroke on examination or on brain imaging. He has, elevate d ammonia levels, which is likely a contributing factor. He is on lactulose. His repeat ammonia yes terday was down to 26 from a high of 83. He does have elevated TSH of 4.3 with elevated free T4 of 1 .81. His B12 is elevated at 1715. Serum folate is normal at 12.6. Liver function studies show elev ated alkaline phosphate of 124 and AST elevated at 85, total bilirubin elevated to 1.3 and direct adriana vated to 0.5. Assessment: Mr. Vergara is a 63-year-old patient with anoxic encephalopathy who is now with bilateral pneumonia. He is on Zosyn. He is on lactulose for his elevated ammonia and that has improved. He h as no evidence of a stroke. Plan: Continue with current treatment regimen of antibiotics and lactulose. Also continue with magn esium supplementation. It should be noted that his recent EEG was consistent with a moderately diffu sely slow background consistent with moderate encephalopathy. However, that finding is nonspecific. There was no epileptiform activity. The patient will be follo wed while in hospital. LB/MODL Voice ID: [id number] Report ID: [id number]
[2019-10-10] MEDS: METHYLPREDNISOLONE 125 MG INJ IV SCH (18:30)
[2019-10-10] MEDS ORDERED: POTASSIUM CL SA 10 MEQ TAB PO ONE (18:36)
[2019-10-10] MEDS ORDERED: POTASSIUM 25 MEQ EFFERV TAB FT ONE ×2 (18:40→22:00)
--- NOTE | 2019-10-10 18:50 | P.PN ---
Date of Service: 10/10/19 Vital Signs Temp Pulse Resp BP Pulse Ox 97.0 F 68 18 145/70 H 91 10/10/19 16:00 10/10/19 16:00 10/10/19 16:00 10/10/19 16:00 10/10/19 16:00 Medications Acetaminophen (Tylenol -Extra Strength) 500 mg FT Q4HP PRN PRN Reason: TEMP > 101' F Stop: 11/07/19 16:02 Arformoterol Tartrate (Brovana) 15 mcg NEB BIDRESP DINORAH Stop: 11/09/19 20:01 Atorvastatin Calcium (Lipitor) 40 mg FT BEDTIME DINORAH Stop: 11/07/19 21:01 Last Admin: 10/09/19 21:20 Dose: 40 mg Documented by: Calcitriol (Rocaltrol) 0.5 mcg PO DAILY DINORAH Stop: 11/10/19 09:01 Haloperidol Lactate (Haldol) 2 mg IV Q6H PRN PRN Reason: AGITATION Stop: 11/07/19 16:02 Last Admin: 10/08/19 22:32 Dose: 2 mg Documented by: Piperacillin/Tazobactam/Sod Chloride (Zosyn 2.25 Gm/50 Ml Ivpb) 2.25 gm in 50 mls @ 100 mls/hr IVPB Q8HR DINORAH; Protocol Stop: 11/08/19 17:01 Last Admin: 10/10/19 18:29 Dose: 50 mls Documented by: Dextrose/Sodium Chloride (Dextrose 5% O.45% Saline) 1,000 mls @ 50 mls/hr IV .Q20H DINORAH Stop: 11/09/19 09:44 Last Admin: 10/10/19 09:43 Dose: 1,000 mls Documented by: Ferric Sodium Gluconate Complex 125 mg/ Sodium Chloride 110 mls @ 100 mls/hr IV DAILY DINORAH Stop: 10/18/19 10:05 Ipratropium [place] (Atrovent Neb) 0.5 mg NEB [id number] DINORAH Stop: 11/09/19 14:01 Last Admin: 10/10/19 13:40 Dose: 0.5 mg Documented by: Lactulose (Cephulac) 20 gm FT TID DINORAH Stop: 11/07/19 21:01 Last Admin: 10/10/19 14:01 Dose: 20 gm Documented by: Lorazepam (Ativan) 0.5 mg IV TID PRN PRN Reason: AGITATION Stop: 11/07/19 21:01 Last Admin: 10/09/19 17:21 Dose: 0.5 mg Documented by: Magnesium Oxide (Mag 0x Tab) 400 mg FT DAILY DINORAH Stop: 11/10/19 09:01 Methylprednisolone Sodium Succinate (Solu-Medrol) 60 mg IV Q6HR DINORAH Stop: 11/09/19 18:01 Last Admin: 10/10/19 18:30 Dose: 60 mg Documented by: Nutritional Formula (Promod Liquid Protein) 30 ml FT BID DINORAH Stop: 11/09/19 21:01 Ondansetron HCl (Zofran) 4 mg IV Q6HP PRN PRN Reason: NAUSEA / VOMITING Stop: 11/07/19 16:02 Potassium Bicarbonate (K-Lyte) 50 meq FT 1X ONE Stop: 10/10/19 18:41 Potassium Bicarbonate (K-Lyte) 25 meq FT 1X ONE Stop: 10/10/19 22:01 Sodium Chloride (Normal Saline Flush) 10 ml IV BID DINORAH Stop: 11/07/19 21:01 Last Admin: 10/10/19 09:00 Dose: Not Given Documented by: Sterile Water (Sterile Water For Inj (10 Ml Vial)) 1.2 ml IM UD PRN PRN Reason: DILUTION OF MED Stop: 11/07/19 16:02 Last Admin: 10/09/19 04:40 Dose: 1.2 ml Documented by: Thiamine HCl (Vitamin B-1) 100 mg IVP DAILY DINORAH Stop: 11/09/19 09:01 Last Admin: 10/10/19 09:00 Dose: Not Given Documented by: Trazodone HCl (Desyrel) 50 mg FT BEDTIME DINORAH Stop: 11/09/19 21:01 Ziprasidone (Geodon) 10 mg IM Q12H PRN PRN Reason: AGITATION Stop: 11/07/19 16:02 Last Admin: 10/09/19 04:45 Dose: 10 mg Documented by: Microbiology Results 10/08/19 07:40 Blood - Blood Aerobic Blood Culture - Preliminary No growth in 24 hours. 10/08/19 07:40 Blood - Blood Anaerobic Blood Culture - Final 10/08/19 06:27 Blood - Blood Aerobic Blood Culture - Preliminary No growth in 24 hours. 10/08/19 06:27 Blood - Blood Anaerobic Blood Culture - Preliminary No growth in 24 hours. Assessment/ Plan: Nephrology CPS stable without CP or SOB. No acute events overnight. Limited IH/ ROS due to AMS. Vitals, medications, blood work and imaging reviewed in the chart. General: Unresponsive HEENT: Atraumatic, Normocephalic Neck: Supple Respiratory: Clear to auscultation bilaterally Cardiovascular: No edema, Regular rate/rhythm Gastrointestinal: Soft and benign, Non-distended Musculoskeletal: No clubbing, No contractures Integumentary: No rashes, No cyanosis Neurological: Abnormal tone Blood work reviewed in the chart. Imagings Data: EXAM DESCRIPTION: [place] Single View10/09/2019 11:36 am CLINICAL HISTORY: Chest pain COMPARISON: October 08, 2019 FINDINGS: The right hemithorax has become more hazy. Prominent reticulonodular opacities within the left lung. The heart is enlarged IMPRESSION: Prominent reticulonodular opacities left lung may indicate aspiration pneumonia Right hemithorax has become more hazy which may indicate right pneumonia superimposed over pleural thickening/effusion Conclusions/Impression: A/ JON/ CKD III Hypernatemia/ Dehydration Hypokalemia Hypocalcemia Anemia in chronic illness Severe malnutrition Dysphagia sp PEG Toxic metabolic encephalopathy. P/ Continue current POC and Medications. Continue IVF. Give potassium. Increase water with tube feeds. Start Promod BID. Start Vitamin D. Agree with IV iron. No NSAIDs. AM labs. Daily weight.
[2019-10-10] MEDS: ARFORMOTEROL TARTRATE 15 MCG/2 ML VIAL.NEB NEB SCH (20:15)
[2019-10-10] MEDS: ATORVASTATIN 40 MG TAB FT SCH (21:25)
[2019-10-10] MEDS: TRAZODONE 50 MG TABLET FT SCH (21:34)
[2019-10-10] MEDS: PROMOD 30 ML DOSE FT SCH (21:54)
[2019-10-11] MEDS: PIPER/TAZO/NS 2.25gm 2.25 GM/50 ML BAG IVPB SCH ×3 (00:33→17:34)
[2019-10-11] MEDS: METHYLPREDNISOLONE 125 MG INJ IV SCH ×2 (00:33→05:34)
[2019-10-11] MEDS: ZIPRASIDONE MESYLA 20 MG/VIAL IM PRN (01:17)
[2019-10-11] MEDS: WATER FOR INJ,STERILE 10 ML IM PRN (01:21)
[2019-10-11] MEDS: IPRATROPIUM BROM 0.5MG/2.5ML NEB SCH ×4 (01:28→19:45)
[2019-10-11] MEDS: D5 0.45 NS 1,000 ML IV SCH ×2 (02:58→19:51)
[2019-10-11] MEDS ORDERED: VANCOMYCIN/NS 1 gm 1 GM/250 ML BAG IVPB SCH (07:45)
[2019-10-11] MEDS: JEVITY 1.5 CAL LIQUID 1,000 ML BOT FT SCH ×5 (08:00→20:57)
[2019-10-11] MEDS: ARFORMOTEROL TARTRATE 15 MCG/2 ML VIAL.NEB NEB SCH ×2 (08:10→19:45)
[2019-10-11] MEDS ORDERED: AMIODARONE HCL 200 MG TAB FT SCH (09:00)
[2019-10-11] MEDS ORDERED: ATORVASTATIN 40 MG TAB FT SCH (09:00)
[2019-10-11] MEDS ORDERED: VANCOMYCIN 1.25 GM in NA CHLORIDE 0.9% 250 ML IVPB SCH (09:00)
[2019-10-11] MEDS: MAGNESIUM OXIDE 400 MG TAB FT SCH (09:00)
[2019-10-11] MEDS: SOD FERRIC GLUC COMPLX/SUCROSE 125 MG in NA CHLORIDE 0.9% 100 ML IV SCH (10:23)
[2019-10-11] MEDS: THIAMINE 200 MG/2 ML INJ IVP SCH (10:23)
[2019-10-11] MEDS: CALCITROL 0.25 MCG CAP PO SCH (10:24)
[2019-10-11] MEDS: LACTULOSE 20 GM/30 ML UCUP FT SCH ×3 (10:26→20:57)
--- NOTE | 2019-10-11 10:30 | P.PN ---
Subjective Date of Service: 10/11/19 Primary Care Provider: Dr. Foster([facility]) Chief Complaint: Altered mental status Subjective: Other (Patient more alert today. Patient appears to be at his baseline level.) Physical Examination - Vital Signs Temperature: 97.1 F Blood Pressure: 168/72 Pulse: 56 Respirations: 18 Pulse Ox (%): 100 - Physical Exam General: Alert, Other (Less confusion noted.) HEENT: Atraumatic Neck: Supple Respiratory: Diminished (Diminished to the bases) Cardiovascular: Normal pulses, Regular rate/rhythm Integumentary: No tenderness/swelling, No erythema, No warmth, No cyanosis Neurological: Normal strength at 5/5 x4 extr - Studies Medications List Reviewed: Yes Assessment & Plan Discharge Plan: Correction Plan to discharge in: 72 Hours Physician Review Additional Text: Impression: Altered mental status likely metabolic encephalopathy complicated with acute renal failure likely from dehydration and poor nutrition now with aspiration pneumonia Bradycardia with history of Atrial fibrillation on chronic anti coagulation therapy Hypertension Chronic diastolic CHF History of CVALikely underlying dementia History of dysphagia now with PEG tube Moderate protein malnutrition Anemia of chronic disease COPD Plan: Altered mental status likely metabolic/toxic encephalopathy complicated with acute renal failure likely from dehydration and poor nutrition now with aspiration pneumonia: Case discussed with pulmonology. Will add vancomycin for MRI assay coverage. Continue IV Zosyn. Will transition off IV steroids to oral. Case discussed with Neurology. No evidence of stroke. Continue with medication. Case also discuss with cardiology who recommends to discontinue amiodarone. Also recommendation was to discontinue chronic anti coalition therapy as the patient is high risk for bleed. Will need to consider restarting metoprolol at a lower dose if rate abnormal. Continue with Nephrology recommendations as well. Spoke with daughter yesterday. Continue with plan of care to send patient to a intermediate long-term. Bradycardia with history of Atrial fibrillation on chronic anti coagulation therapy: Continue to hold metoprolol. Spoke with pulmonology and Cardiology. Both recommend to discontinue Eliquis and amiodarone. Patient high risk for both. May need to restart metoprolol at a lower dose if rate elevated. Hypertension: Blood pressure stable this time. Will hold lisinopril due to renal function. Will add additional medication if required. Chronic diastolic CHF: Hold Lasix at this time due to acute renal failure History of CVA Likely underlying dementia: Continue as above. MRI brain negative. Continue with Neurology recommendations. Continue as above. History of dysphagia now with PEG tube: Continue dietary recommendations Moderate protein malnutrition: Continue dietary recommendation Anemia of chronic disease with iron deficiency: Will monitor this closely. Restart iron COPD: Will transition IV steroids to oral. Continue with COPD treatment. Time Spent Managing Pts Care (In Minutes): 55
--- NOTE | 2019-10-11 11:34 | PN ---
Date of Progress Note: 10/11/2019 Subjective: The patient was seen and examined. He denies any complaints. No overnight events were noted. Physical Examination: Vital Signs: Have been reviewed. Blood pressure is running high in 168/72. Other vitals are stable . General: He appears in no acute distress. Lungs: Auscultation of lungs revealed bilateral equal air entry. Extremities: Showed no evidence of edema. The patient has a PEG tube in place. Current Medications: Include Jevity at 237 mL for feeding tube, lactulose 3 times a day, potassium s upplementation, trazodone at bedtime, vancomycin every 24 hours and Geodon. He is on Zosyn 2.25 g ev kiran 8 hours. Laboratory Data: Blood cultures and urine cultures have been so far negative. Impression: 1.Acute renal failure, currently improving renal function, pending labs from today. 2.Related abnormalities including hypokalemia, being repleted. We will follow up on labs and contin ue repletion as needed. 3.Altered mental status secondary to metabolic encephalopathy versus from medication use. The patie nt is being treated for aspiration pneumonia. At this time cultures have been negative. Continue to monitor closely and Dr. Morris is also following up with the patient at length. 4.Bradycardia with history of atrial fibrillation. Metoprolol is currently on hold. 5.Hypertension. Lisinopril is currently on hold secondary to acute renal failure at the time of adm ission. It could possibly be restarted at this time once renal function comes back down to normal. Plan: Overall the patient is doing okay. Alter mental status seems to be slightly improving. Medic ation adjustments have been made. He is being treated for aspiration pneumonia. Continue potassium replacement and we will follow up on the labs and adjust medications as needed. VV/MODL Voice ID: [id number] Report ID: [id number]
[2019-10-11] MEDS: PROMOD 30 ML DOSE FT SCH ×2 (13:59→20:57)
[2019-10-11 15:06] LABS: Absolute Lymphocytes (CBC) 0.3 K/uL (0.7-4.9); Basophils % 0.6 % (0-1.3); Lymphocytes % 2.9 % (15.3-44.8); MPV 10.5 fL (7.6-11.3); RBC Red Blood Cell Count 3.75 M/uL (4.33-5.43)
[2019-10-11 15:19] LABS: Protime INR 1.63
[2019-10-11 15:21] LABS: ALT/SGPT 49 U/L (12-78); AST/SGOT 51 U/L (15-37); Albumin 1.8 g/dL (3.4-5.0); Alkaline Phosphatase 159 U/L (45-117); BUN Blood Urea Nitrogen 20 mg/dL (7-18); Bicarbonate 31 mmol/L (21-32); Bilirubin Total 1.3 mg/dL (0.2-1.0); Glucose Level 162 mg/dL (74-106); Magnesium 2.2 mg/dL (1.8-2.4); Potassium 3.3 mmol/L (3.5-5.1); Protein, Total 5.7 g/dL (6.4-8.2); Sodium Level 141 mmol/L (136-145)
[2019-10-11] MEDS: LORazepam 2 MG/ML VIAL IV PRN (15:54)
[2019-10-11] MEDS: ATORVASTATIN 40 MG TAB FT SCH (20:56)
[2019-10-11] MEDS: predniSONE 20 MG TAB FT SCH (20:56)
[2019-10-11] MEDS: TRAZODONE 50 MG TABLET FT SCH (20:57)
[2019-10-11] MEDS ORDERED: POTASSIUM CL SA 10 MEQ TAB PO ONE (21:00)
[2019-10-12] MEDS: LORazepam 2 MG/ML VIAL IV PRN (00:07)
[2019-10-12] MEDS: IPRATROPIUM BROM 0.5MG/2.5ML NEB SCH ×2 (00:30→07:50)
[2019-10-12] MEDS: PIPER/TAZO/NS 2.25gm 2.25 GM/50 ML BAG IVPB SCH (00:40)
[2019-10-12] MEDS: ZIPRASIDONE MESYLA 20 MG/VIAL IM PRN (01:53)
[2019-10-12] MEDS: WATER FOR INJ,STERILE 10 ML IM PRN (01:54)
[2019-10-12] MEDS ORDERED: LACTULOSE 20 GM/30 ML UCUP FT PRN (06:28)
[2019-10-12 07:07] LABS: Potassium 3.4 mmol/L (3.5-5.1)
[2019-10-12] MEDS: ARFORMOTEROL TARTRATE 15 MCG/2 ML VIAL.NEB NEB SCH ×2 (07:50→20:00)
[2019-10-12] MEDS: predniSONE 20 MG TAB FT SCH ×2 (08:12→21:28)
[2019-10-12] MEDS: AMOX/K CLAV 500 MG TAB FT SCH ×2 (08:12→21:28)
[2019-10-12] MEDS: DOXYCYCLINE 100 MG CAP PO SCH ×2 (08:12→21:28)
[2019-10-12] MEDS: PROMOD 30 ML DOSE FT SCH ×2 (08:13→21:28)
[2019-10-12] MEDS: CALCITROL 0.25 MCG CAP PO SCH (08:13)
[2019-10-12] MEDS: JEVITY 1.5 CAL LIQUID 1,000 ML BOT FT SCH ×5 (08:13→21:27)
[2019-10-12] MEDS: MAGNESIUM OXIDE 400 MG TAB FT SCH (08:14)
[2019-10-12] MEDS: SOD FERRIC GLUC COMPLX/SUCROSE 125 MG in NA CHLORIDE 0.9% 100 ML IV SCH (08:14)
[2019-10-12] MEDS: THIAMINE 200 MG/2 ML INJ IVP SCH (08:14)
--- NOTE | 2019-10-12 10:33 | P.PN ---
Subjective Date of Service: 10/12/19 Primary Care Provider: Dr. Foster([facility]) Chief Complaint: Altered mental status Subjective: Doing well Physical Examination - Vital Signs Temperature: 97.3 F Blood Pressure: 174/77 Pulse: 64 Respirations: 16 Pulse Ox (%): 94 - Physical Exam General: Alert, Demented HEENT: Atraumatic Neck: Supple Respiratory: Clear to auscultation bilaterally, Normal air movement Cardiovascular: Normal pulses Neurological: Normal speech, Normal strength at 5/5 x4 extr, Normal tone, Other (Patient more alert today.), Dementia - Studies Medications List Reviewed: Yes Assessment & Plan Discharge Plan: Skilled Nursing Plan to discharge in: 24 Hours Physician Review Additional Text: Impression: Altered mental status secondary to metabolic encephalopathy complicated with acute renal failure likely from dehydration and poor nutrition now with aspiration pneumonia/COPD exacerbation Bradycardia with history of Atrial fibrillation on chronic anti coagulation therapy Hypertension Chronic diastolic CHF History of CVALikely underlying dementia History of dysphagia now with PEG tube Moderate protein malnutrition Anemia of chronic disease Plan: Altered mental status secondary to metabolic/toxic encephalopathy complicated with acute renal failure likely from dehydration and poor nutrition now with aspiration pneumonia/COPD exacerbation: Patient has done well. Patient pulled IV catheter. Will transition IV antibiotic therapy to oral. This includes Augmentin and doxycycline. Pharmacy to monitor and adjust. Discontinue IV fluids. Patient appears to be at baseline. As mentioned above cardiology and pulmonology recommend to discontinue amiodarone and Eliquis. Patient high risk for bleeds. Amiodarone discontinued due to his COPD. Renal function stable. Patient in process to be transferred to [facility] once approved. Will discuss further with family. Bradycardia with history of Atrial fibrillation on chronic anti coagulation therapy: Patient off metoprolol and amiodarone/Eliquis. Metoprolol discontinued due to bradycardia. Eliquis/amiodarone discontinued due to risk factors. Continue monitor closely. Will provide DVT prophylaxis. Will start aspirin. Hypertension: Restart low-dose lisinopril. Off metoprolol as directed above. Chronic diastolic CHF: Hold Lasix at this time due to acute renal failure. Fluids appear stable. History of CVA Likely underlying dementia: Continue as above. MRI brain negative. Continue with Neurology recommendations. Continue as above. History of dysphagia now with PEG tube: Continue dietary recommendations Moderate protein malnutrition: Continue dietary recommendation Anemia of chronic disease with iron deficiency: Will monitor this closely. Restart iron Time Spent Managing Pts Care (In Minutes): 55
--- NOTE | 2019-10-12 10:52 | P.PN ---
Subjective Date of Service: 10/12/19 Primary Care Provider: Dr. Foster([facility]) Chief Complaint: Pneumonia Subjective: Improving (Patient is doing much better he is more alert oriented cooperative responsive) Review of Systems General: Weakness Physical Examination - Vital Signs Temperature: 97.3 F Blood Pressure: 174/77 Pulse: 64 Respirations: 16 Pulse Ox (%): 94 - Physical Exam General: Alert, Oriented x3 Cardiovascular: No edema, Normal S1 S2 Gastrointestinal: Normal bowel sounds, Non-distended - Studies Medications List Reviewed: Yes Assessment & Plan - Problems (Diagnosis) (1) Pneumonia Current Visit: Yes Status: Acute Plan: Patient is 63 years of age has improved significantly admitted with right lower lobe pneumonia and altered mental status cultures are negative continue with Augmentin doxycycline for at least 2 weeks bronchodilators with Perforomist or Brovana hypoxic hypercapnic his white count minimally elevated continue with low-dose prednisone 10 mg twice a day for at least 2 weeks Qualifiers: Laterality: right Lung location: lower lobe of lung Physician Review Additional Text: Patient is 63 years of age admitted with right lower lobe pneumonia he has improved significantly continue with Augmentin and doxycycline for at least 2 weeks he probably has underlying obstructive airways disease still benefit from long-acting nebulizer at home with Brovana or Perforomist
[2019-10-12] MEDS: THIAMINE HCL 100 MG TABLET PO SCH (11:08)
[2019-10-12] MEDS: HEPARIN 5000 UNIT/ML 1 ML VIAL SQ SCH ×2 (11:09→21:29)
[2019-10-12] MEDS: lisinopriL 5 MG TAB FT SCH (11:13)
--- NOTE | 2019-10-12 14:43 | P.PN ---
Subjective Date of Service: 10/12/19 Primary Care Provider: Dr. Foster([facility]) Chief Complaint: Pneumonia Subjective: No new changes Review of Systems 10-point ROS is otherwise unremarkable Physical Examination - Vital Signs Temperature: 97.1 F Blood Pressure: 131/60 Pulse: 66 Respirations: 14 Pulse Ox (%): 92 - Physical Exam General: Alert HEENT: Atraumatic Neck: Supple Respiratory: Clear to auscultation bilaterally Cardiovascular: No edema, Normal S1 S2 Gastrointestinal: Normal bowel sounds - Studies Medications List Reviewed: Yes Assessment And Plan Physician Review Additional Text: JON on CKD improving AMS sec to toxic metabolic encephalopathy malnutrition hypokalemia aspiration pneumonia improving Plan : replete KCL AMS improving AM labs continue antibiotics
[2019-10-12] MEDS: IPRATROPIUM BROM 0.5MG/2.5ML NEB PRN (20:00)
[2019-10-12] MEDS: TRAZODONE 50 MG TABLET FT SCH (21:28)
[2019-10-12] MEDS: ATORVASTATIN 40 MG TAB FT SCH (21:28)
[2019-10-13 04:23] LABS: Absolute Lymphocytes (CBC) 0.5 K/uL (0.7-4.9); Basophils % 0.1 % (0-1.3); Hematocrit 30.7 % (39.6-49.0); Lymphocytes % 4.3 % (15.3-44.8); MPV 10.1 fL (7.6-11.3); RBC Red Blood Cell Count 3.99 M/uL (4.33-5.43)
[2019-10-13 04:44] LABS: BUN Blood Urea Nitrogen 23 mg/dL (7-18); Bicarbonate 34 mmol/L (21-32); Glucose Level 119 mg/dL (74-106); Magnesium 2.5 mg/dL (1.8-2.4); Potassium 3.2 mmol/L (3.5-5.1); Sodium Level 143 mmol/L (136-145)
[2019-10-13] MEDS ORDERED: POTASSIUM 25 MEQ EFFERV TAB PO ONE ×2 (05:48→10:30)
[2019-10-13 05:56] LABS: Phosphorus 2.7 mg/dL (2.5-4.9)
[2019-10-13] MEDS: ARFORMOTEROL TARTRATE 15 MCG/2 ML VIAL.NEB NEB SCH ×2 (07:32→19:55)
[2019-10-13 07:50] LABS: Anisocytosis 1+; Blood Morphology Comment NOTED (NOT SEEN); Platelet Estimate ADEQ
[2019-10-13] MEDS: PROMOD 30 ML DOSE FT SCH ×2 (09:52→21:49)
[2019-10-13] MEDS: JEVITY 1.5 CAL LIQUID 1,000 ML BOT FT SCH ×5 (09:52→21:49)
[2019-10-13] MEDS: MAGNESIUM OXIDE 400 MG TAB FT SCH (09:53)
[2019-10-13] MEDS: lisinopriL 5 MG TAB FT SCH (09:53)
[2019-10-13] MEDS: ASPIRIN 81 MG CHEWABLE TABLET FT SCH (09:53)
[2019-10-13] MEDS: HEPARIN 5000 UNIT/ML 1 ML VIAL SQ SCH ×2 (09:53→21:48)
[2019-10-13] MEDS: AMOX/K CLAV 500 MG TAB FT SCH ×2 (09:53→21:47)
[2019-10-13] MEDS: DOXYCYCLINE 100 MG CAP PO SCH ×2 (09:53→21:47)
[2019-10-13] MEDS: THIAMINE HCL 100 MG TABLET PO SCH (09:53)
[2019-10-13] MEDS: CALCITROL 0.25 MCG CAP PO SCH (09:53)
[2019-10-13] MEDS: predniSONE 20 MG TAB FT SCH ×2 (09:53→21:47)
--- NOTE | 2019-10-13 10:34 | P.PN ---
Date of Service: 10/13/19 Vital Signs Temp Pulse Resp BP Pulse Ox 97.6 F 64 18 145/69 H 93 10/13/19 04:00 10/13/19 09:53 10/13/19 04:00 10/13/19 09:53 10/13/19 04:00 Medications Acetaminophen (Tylenol -Extra Strength) 500 mg FT Q4HP PRN PRN Reason: TEMP > 101' F Stop: 11/07/19 16:02 Amoxicillin/Clavulanate Potassium (Augmentin 500-125 Mg Tab) 500 mg FT BID [facility]; Protocol Stop: 11/11/19 09:01 Last Admin: 10/13/19 09:53 Dose: 500 mg Documented by: Arformoterol Tartrate (Brovana) 15 mcg NEB BIDRESP [facility] Stop: 11/09/19 20:01 Last Admin: 10/13/19 07:32 Dose: 15 mcg Documented by: Aspirin (Aspirin Chewable) 81 mg FT DAILY [facility] Stop: 11/12/19 09:01 Last Admin: 10/13/19 09:53 Dose: 81 mg Documented by: Atorvastatin Calcium (Lipitor) 40 mg FT BEDTIME [facility] Stop: 11/07/19 21:01 Last Admin: 10/12/19 21:28 Dose: 40 mg Documented by: Calcitriol (Rocaltrol) 0.5 mcg PO DAILY [facility] Stop: 11/10/19 09:01 Last Admin: 10/13/19 09:53 Dose: 0.5 mcg Documented by: Doxycycline Monohydrate (Vibramycin) 100 mg PO BID [facility]; Protocol Stop: 11/11/19 09:01 Last Admin: 10/13/19 09:53 Dose: 100 mg Documented by: Haloperidol Lactate (Haldol) 2 mg IV Q6H PRN PRN Reason: AGITATION Stop: 11/07/19 16:02 Last Admin: 10/08/19 22:32 Dose: 2 mg Documented by: Heparin Sodium (Porcine) (Heparin 5,000 Units/Ml) 5,000 unit SQ Q12HR [facility] Stop: 11/11/19 11:01 Last Admin: 10/13/19 09:53 Dose: 5,000 unit Documented by: Ipratropium [place] (Atrovent Neb) 0.5 mg NEB [id number] PRN PRN Reason: SHORTNESS OF BREATH Stop: 11/09/19 14:01 Last Admin: 10/12/19 20:00 Dose: 0.5 mg Documented by: Lactulose (Cephulac) 20 gm FT TID PRN PRN Reason: CONSTIPATION Stop: 11/07/19 21:01 Lisinopril (Prinivil) 5 mg FT DAILY [facility] Stop: 11/11/19 11:01 Last Admin: 10/13/19 09:53 Dose: 5 mg Documented by: Lorazepam (Ativan) 0.5 mg IV TID PRN PRN Reason: AGITATION Stop: 11/07/19 21:01 Last Admin: 10/12/19 00:07 Dose: 0.5 mg Documented by: Magnesium Oxide (Mag 0x Tab) 400 mg FT DAILY [facility] Stop: 11/10/19 09:01 Last Admin: 10/13/19 09:53 Dose: 400 mg Documented by: Nutritional Formula (Promod Liquid Protein) 30 ml FT BID [facility] Stop: 11/09/19 21:01 Last Admin: 10/13/19 09:52 Dose: 30 ml Documented by: Ondansetron HCl (Zofran) 4 mg IV Q6HP PRN PRN Reason: NAUSEA / VOMITING Stop: 11/07/19 16:02 Potassium Bicarbonate (K-Lyte) 25 meq PO 1X ONE Stop: 10/13/19 10:31 Prednisone (Deltasone) 20 mg FT BID [facility] Stop: 11/10/19 21:01 Last Admin: 10/13/19 09:53 Dose: 20 mg Documented by: Sodium Chloride (Normal Saline Flush) 10 ml IV BID [facility] Stop: 11/07/19 21:01 Last Admin: 10/13/19 09:00 Dose: Not Given Documented by: Sterile Water (Sterile Water For Inj (10 Ml Vial)) 1.2 ml IM UD PRN PRN Reason: DILUTION OF MED Stop: 11/07/19 16:02 Last Admin: 10/12/19 01:54 Dose: 1.2 ml Documented by: Thiamine HCl (Vitamin B-1) 100 mg PO DAILY [facility] Stop: 11/11/19 11:01 Last Admin: 10/13/19 09:53 Dose: 100 mg Documented by: Trazodone HCl (Desyrel) 50 mg FT BEDTIME [facility] Stop: 11/09/19 21:01 Last Admin: 10/12/19 21:28 Dose: 50 mg Documented by: Ziprasidone (Geodon) 10 mg IM Q12H PRN PRN Reason: AGITATION Stop: 11/07/19 16:02 Last Admin: 10/12/19 01:53 Dose: 10 mg Documented by: Microbiology Results 10/08/19 07:40 Blood - Blood Aerobic Blood Culture - Final No growth in 5 days. 10/08/19 07:40 Blood - Blood Anaerobic Blood Culture - Final 10/08/19 06:27 Blood - Blood Aerobic Blood Culture - Final No growth in 5 days. 10/08/19 06:27 Blood - Blood Anaerobic Blood Culture - Final No growth in 5 days. Assessment/ Plan: Nephrology CPS stable without CP or SOB. Feeling better. Mental status much improved. No acute events overnight. Vitals, medications, blood work and imaging reviewed in the chart. General: NAD HEENT: Atraumatic, Normocephalic Neck: Supple Respiratory: Clear to auscultation bilaterally Cardiovascular: No edema, Regular rate/rhythm Gastrointestinal: Soft and benign, Non-distended. PEG Musculoskeletal: No clubbing, No contractures Integumentary: No rashes, No cyanosis Neurological: Normal tone Blood work reviewed in the chart. Imagings Data: EXAM DESCRIPTION: [place] Single View10/09/2019 11:36 am CLINICAL HISTORY: Chest pain COMPARISON: October 08, 2019 FINDINGS: The right hemithorax has become more hazy. Prominent reticulonodular opacities within the left lung. The heart is enlarged IMPRESSION: Prominent reticulonodular opacities left lung may indicate aspiration pneumonia Right hemithorax has become more hazy which may indicate right pneumonia superimposed over pleural thickening/effusion Conclusions/Impression: A/ JON/ CKD III Hypernatemia/ Dehydration Hypokalemia Hypocalcemia Anemia in chronic illness Severe malnutrition Dysphagia sp PEG Toxic metabolic encephalopathy. P/ Continue current POC and Medications. Give potassium. Increase free water through PEG as needed. Agree with IV iron. Maintain nutrition. No NSAIDs. AM labs. Daily weight.
--- NOTE | 2019-10-13 11:56 | P.PN ---
Subjective Date of Service: 10/13/19 Primary Care Provider: Dr. Foster([facility]) Chief Complaint: Pneumonia Subjective: Doing well Physical Examination - Vital Signs Temperature: 97.6 F Blood Pressure: 145/69 Pulse: 64 Respirations: 18 Pulse Ox (%): 93 - Physical Exam General: Alert HEENT: Atraumatic Neck: Supple Respiratory: Clear to auscultation bilaterally, Normal air movement Cardiovascular: Normal pulses Neurological: Normal strength at 5/5 x4 extr, Normal tone, Dementia (Patient with dementia.) - Studies Microbiology Data (last 24 hrs): 10/08/19 07:40 Blood - Blood Aerobic Blood Culture - Final No growth in 5 days. 10/08/19 07:40 Blood - Blood Anaerobic Blood Culture - Final 10/08/19 06:27 Blood - Blood Aerobic Blood Culture - Final No growth in 5 days. 10/08/19 06:27 Blood - Blood Anaerobic Blood Culture - Final No growth in 5 days. Medications List Reviewed: Yes Assessment & Plan Discharge Plan: [facility] Plan to discharge in: 24 Hours Physician Review Additional Text: Impression: Altered mental status secondary to metabolic encephalopathy complicated with acute renal failure likely from dehydration and poor nutrition now with aspiration pneumonia/COPD exacerbation Bradycardia with history of Atrial fibrillation on chronic anti coagulation therapy Hypertension Chronic diastolic CHF History of CVALikely underlying dementia History of dysphagia now with PEG tube Moderate protein malnutrition Anemia of chronic disease Plan: Altered mental status secondary to metabolic/toxic encephalopathy complicated with acute renal failure likely from dehydration and poor nutrition now with aspiration pneumonia/COPD exacerbation: Patient continues to do well. Continue with Augmentin and doxycycline. Pharmacy to monitor and adjust. Patient appears to be at baseline. As mentioned before cardiology and pulmonology recommend to discontinue amiodarone and Eliquis. Patient high risk for bleeds. Amiodarone discontinued due to his COPD. Renal function stable. Patient in process to be transferred to [facility] once approved. Will discuss further with family. Bradycardia with history of Atrial fibrillation on chronic anti coagulation therapy: Patient off metoprolol and amiodarone/Eliquis. Metoprolol discontinued due to bradycardia. Eliquis/amiodarone discontinued due to risk factors. Continue monitor closely. Will provide DVT prophylaxis. Will start aspirin. Hypertension: Restart low-dose lisinopril. Off metoprolol as directed above. Chronic diastolic CHF: Continue to Hold Lasix at this time due to acute renal failure. Fluids appear stable. History of CVA Likely underlying dementia: Continue as above. MRI brain negative. Continue with Neurology recommendations. Continue as above. History of dysphagia now with PEG tube: Continue dietary recommendations Moderate protein malnutrition: Continue dietary recommendation Anemia of chronic disease with iron deficiency: Will monitor this closely. Continue iron Time Spent Managing Pts Care (In Minutes): 55
--- NOTE | 2019-10-13 13:17 | EEG ---
CHART: [id number] TEST ID#: [id number] DATE OF STUDY: 10/10/2019 THE EEG WAS RECORDED PORTABLE IN THE PATIENT'S ROOM ON A 17 CHANNEL MACHINE. ELECTRODES WERE APPLIED IN THE USUAL MANNER USING THE INTERNATIONAL 10-20 SYSTEM. THE WAKING BACKGROUND RHYTHM IN THIS RECORD CONSISTS OF POORLY DEVELOPED AND POORLY ORGANIZED WAVES OF 4-6 HZ., IN A WIDE DISTRIBUTION WHICH DO NOT ATTENUATE NORMALLY WITH EYE OPENING. MODERATE VOLTAGE 1.5-3 HZ ACTIVITY IS EXPRESSED IN THE FRONTAL AND CENTRAL REGIONS. THERE ARE NO FOCAL OR LATERALIZING FEATURES. NO EPILEPTIFORM ACTIVITY APPEARS. SLEEP DID NOT OCCUR. HYPERVENTILATION WAS NOT PERFORMED. PHOTIC STIMULATION WAS NOT PERFORMED. IMPRESSION: THIS IS A MODERATELY ABNORMAL EEG DUE TO A MODERATELY SLOW BACKGROUND AND FRONTAL DELTA ACTIVITY. THESE FINDINGS ARE CONSISTENT WITH A MMODERATE DIFFUSE BUT NON-SPECIFIC DISTRIBUTION IN CEREBRAL FUNCTION. THESE FINDINGS MAY BE SEEN WITH METABOLIC TOXIC OR HYPOXIC-ISCHEMIC ENCEPHOLOPATHY.
[2019-10-13] MEDS ORDERED: POTASSIUM 25 MEQ EFFERV TAB FT ONE (19:52)
[2019-10-13] MEDS: ATORVASTATIN 40 MG TAB FT SCH (21:47)
[2019-10-13] MEDS: TRAZODONE 50 MG TABLET FT SCH (21:47)
[2019-10-14 05:55] LABS: BUN Blood Urea Nitrogen 24 mg/dL (7-18); Bicarbonate 35 mmol/L (21-32); Glucose Level 112 mg/dL (74-106); Potassium 4.6 mmol/L (3.5-5.1); Sodium Level 146 mmol/L (136-145)
[2019-10-14] MEDS: ARFORMOTEROL TARTRATE 15 MCG/2 ML VIAL.NEB NEB SCH ×2 (07:50→20:10)
[2019-10-14] MEDS: PROMOD 30 ML DOSE FT SCH ×2 (08:52→21:06)
[2019-10-14] MEDS: MAGNESIUM OXIDE 400 MG TAB FT SCH (08:53)
[2019-10-14] MEDS: CALCITROL 0.25 MCG CAP PO SCH (08:53)
[2019-10-14] MEDS: AMOX/K CLAV 500 MG TAB FT SCH ×2 (08:53→21:09)
[2019-10-14] MEDS: THIAMINE HCL 100 MG TABLET PO SCH (08:53)
[2019-10-14] MEDS: ASPIRIN 81 MG CHEWABLE TABLET FT SCH (08:53)
[2019-10-14] MEDS: JEVITY 1.5 CAL LIQUID 1,000 ML BOT FT SCH ×5 (08:53→21:06)
[2019-10-14] MEDS: DOXYCYCLINE 100 MG CAP PO SCH ×2 (08:53→21:06)
--- NOTE | 2019-10-14 08:53 | P.PN ---
Subjective Date of Service: 10/14/19 Primary Care Provider: Dr. Foster([facility]) Chief Complaint: Pneumonia Subjective: Doing well Physical Examination - Vital Signs Temperature: 97.7 F Blood Pressure: 137/64 Pulse: 59 Respirations: 20 Pulse Ox (%): 100 - Physical Exam General: Alert, Cooperative, Demented HEENT: Atraumatic Neck: Supple Respiratory: Clear to auscultation bilaterally Cardiovascular: Normal pulses Gastrointestinal: Normal bowel sounds, No masses, No rebound, No guarding, Other (Feeding tube in place) Neurological: Normal speech, Normal strength at 5/5 x4 extr, Dementia - Studies Microbiology Data (last 24 hrs): 10/08/19 07:40 Blood - Blood Aerobic Blood Culture - Final No growth in 5 days. 10/08/19 07:40 Blood - Blood Anaerobic Blood Culture - Final 10/08/19 06:27 Blood - Blood Aerobic Blood Culture - Final No growth in 5 days. 10/08/19 06:27 Blood - Blood Anaerobic Blood Culture - Final No growth in 5 days. Medications List Reviewed: Yes Assessment & Plan Discharge Plan: [facility] Plan to discharge in: 24 Hours Physician Review Additional Text: Impression: Altered mental status secondary to metabolic encephalopathy complicated with acute renal failure likely from dehydration and poor nutrition now with aspiration pneumonia/COPD exacerbation Bradycardia with history of Atrial fibrillation on chronic anti coagulation therapy Hypertension Chronic diastolic CHF History of CVALikely underlying dementia History of dysphagia now with PEG tube Moderate protein malnutrition Anemia of chronic disease Plan: Altered mental status secondary to metabolic/toxic encephalopathy complicated with acute renal failure likely from dehydration and poor nutrition now with aspiration pneumonia/COPD exacerbation: Patient has done well. Continue with antibiotic treatment. Continue steroid and taper. Will recheck chest x-ray today. Continue COPD treatment. Maintain sats above 93%. Patient overall stable from a respiratory standpoint. Renal failure resolved. Continue with pulmonology and nephrology recommendation. As mentioned previously cardiology and pulmonology recommend to discontinue amiodarone and Eliquis due to multiple risk factors including age, risk for bleeding and COPD. Continue with dietary recommendations. Spoke with daughter in detail about plan of care and advanced care planning. Family working to get patient to half-way near his daughter. Will discuss further with social work. I will turn the service over to the hospitalist team tomorrow. I will go plan of care with him. A advance care planning 30 min. Bradycardia with history of Atrial fibrillation on chronic anti coagulation therapy: Patient no longer on metoprolol and amiodarone/Eliquis. Metoprolol discontinued due to bradycardia. Eliquis/amiodarone discontinued due to risk factors. Continue monitor closely. Will provide DVT prophylaxis. Continue aspirin. Hypertension: Continue low-dose lisinopril. Metoprolol has been discontinued. Chronic diastolic CHF: Lasix continued to be held as fluids/oral intake well controlled. History of CVA Likely underlying dementia: Continue as above. MRI brain negative. Continue with Neurology recommendations. Continue as above. History of dysphagia now with PEG tube: Continue dietary recommendations Moderate protein malnutrition: Continue dietary recommendation Anemia of chronic disease with iron deficiency: Will monitor this closely. Continue iron Time Spent Managing Pts Care (In Minutes): 55
[2019-10-14] MEDS: lisinopriL 5 MG TAB FT SCH (08:54)
[2019-10-14] MEDS: HEPARIN 5000 UNIT/ML 1 ML VIAL SQ SCH ×2 (08:54→21:07)
[2019-10-14] MEDS: predniSONE 20 MG TAB FT SCH ×2 (08:54→21:07)
--- NOTE | 2019-10-14 09:38 | RAD REPORT ---
EXAM DESCRIPTION: RAD - Chest Single View - 10/14/2019 9:10 am CLINICAL HISTORY: follow up pnuemonia Chest pain. COMPARISON: Chest Single View dated 10/09/2019; Chest Single View dated 10/08/2019; Chest Single View dated 09/08/2019; Chest Single View dated 08/29/2019; Chest Abd Pelvis Wo Con dated 10/10/2019 FINDINGS: Portable technique limits examination quality. Since 10/09/2019, mild improvement in right lung aeration is seen since comparative study. Loculated right pleural effusion is again seen, mildly decreased in size since comparative study. Small loculat ed left pleural effusion present. The heart is moderately enlarged with sternotomy wires present.
--- NOTE | 2019-10-14 15:22 | P.PN ---
Date of Service: 10/14/19 Vital Signs Temp Pulse Resp BP Pulse Ox 97.5 F 60 20 117/56 L 96 10/14/19 12:00 10/14/19 12:00 10/14/19 12:00 10/14/19 12:00 10/14/19 12:00 Medications Acetaminophen (Tylenol -Extra Strength) 500 mg FT Q4HP PRN PRN Reason: TEMP > 101' F Stop: 11/07/19 16:02 Amoxicillin/Clavulanate Potassium (Augmentin 500-125 Mg Tab) 500 mg FT BID [facility]; Protocol Stop: 11/11/19 09:01 Last Admin: 10/14/19 08:53 Dose: 500 mg Documented by: Arformoterol Tartrate (Brovana) 15 mcg NEB BIDRESP [facility] Stop: 11/09/19 20:01 Last Admin: 10/14/19 07:50 Dose: 15 mcg Documented by: Aspirin (Aspirin Chewable) 81 mg FT DAILY [facility] Stop: 11/12/19 09:01 Last Admin: 10/14/19 08:53 Dose: 81 mg Documented by: Atorvastatin Calcium (Lipitor) 40 mg FT BEDTIME [facility] Stop: 11/07/19 21:01 Last Admin: 10/13/19 21:47 Dose: 40 mg Documented by: Calcitriol (Rocaltrol) 0.5 mcg PO DAILY [facility] Stop: 11/10/19 09:01 Last Admin: 10/14/19 08:53 Dose: 0.5 mcg Documented by: Doxycycline Monohydrate (Vibramycin) 100 mg PO BID [facility]; Protocol Stop: 11/11/19 09:01 Last Admin: 10/14/19 08:53 Dose: 100 mg Documented by: Haloperidol Lactate (Haldol) 2 mg IV Q6H PRN PRN Reason: AGITATION Stop: 11/07/19 16:02 Last Admin: 10/08/19 22:32 Dose: 2 mg Documented by: Heparin Sodium (Porcine) (Heparin 5,000 Units/Ml) 5,000 unit SQ Q12HR [facility] Stop: 11/11/19 11:01 Last Admin: 10/14/19 08:54 Dose: 5,000 unit Documented by: Ipratropium [place] (Atrovent Neb) 0.5 mg NEB [id number] PRN PRN Reason: SHORTNESS OF BREATH Stop: 11/09/19 14:01 Last Admin: 10/12/19 20:00 Dose: 0.5 mg Documented by: Lactulose (Cephulac) 20 gm FT TID PRN PRN Reason: CONSTIPATION Stop: 11/07/19 21:01 Lisinopril (Prinivil) 5 mg FT DAILY [facility] Stop: 11/11/19 11:01 Last Admin: 10/14/19 08:54 Dose: 5 mg Documented by: Lorazepam (Ativan) 0.5 mg IV TID PRN PRN Reason: AGITATION Stop: 11/07/19 21:01 Last Admin: 10/12/19 00:07 Dose: 0.5 mg Documented by: Magnesium Oxide (Mag 0x Tab) 400 mg FT DAILY [facility] Stop: 11/10/19 09:01 Last Admin: 10/14/19 08:53 Dose: 400 mg Documented by: Nutritional Formula (Promod Liquid Protein) 30 ml FT BID [facility] Stop: 11/09/19 21:01 Last Admin: 10/14/19 08:52 Dose: 30 ml Documented by: Ondansetron HCl (Zofran) 4 mg IV Q6HP PRN PRN Reason: NAUSEA / VOMITING Stop: 11/07/19 16:02 Prednisone (Deltasone) 20 mg FT BID [facility] Stop: 11/10/19 21:01 Last Admin: 10/14/19 08:54 Dose: 20 mg Documented by: Sodium Chloride (Normal Saline Flush) 10 ml IV BID [facility] Stop: 11/07/19 21:01 Last Admin: 10/14/19 08:54 Dose: Not Given Documented by: Sterile Water (Sterile Water For Inj (10 Ml Vial)) 1.2 ml IM UD PRN PRN Reason: DILUTION OF MED Stop: 11/07/19 16:02 Last Admin: 10/12/19 01:54 Dose: 1.2 ml Documented by: Thiamine HCl (Vitamin B-1) 100 mg PO DAILY [facility] Stop: 11/11/19 11:01 Last Admin: 10/14/19 08:53 Dose: 100 mg Documented by: Trazodone HCl (Desyrel) 50 mg FT BEDTIME [facility] Stop: 11/09/19 21:01 Last Admin: 10/13/19 21:47 Dose: 50 mg Documented by: Ziprasidone (Geodon) 10 mg IM Q12H PRN PRN Reason: AGITATION Stop: 11/07/19 16:02 Last Admin: 10/12/19 01:53 Dose: 10 mg Documented by: Microbiology Results 10/08/19 07:40 Blood - Blood Aerobic Blood Culture - Final No growth in 5 days. 10/08/19 07:40 Blood - Blood Anaerobic Blood Culture - Final 10/08/19 06:27 Blood - Blood Aerobic Blood Culture - Final No growth in 5 days. 10/08/19 06:27 Blood - Blood Anaerobic Blood Culture - Final No growth in 5 days. Assessment/ Plan: Nephrology CPS stable without CP or SOB. Doing well. No acute events overnight. Vitals, medications, blood work and imaging reviewed in the chart. General: NAD HEENT: Atraumatic, Normocephalic Neck: Supple Respiratory: Clear to auscultation bilaterally Cardiovascular: No edema, Regular rate/rhythm Gastrointestinal: Soft and benign, Non-distended. PEG Musculoskeletal: No clubbing, No contractures Integumentary: No rashes, No cyanosis Neurological: Normal tone Blood work reviewed in the chart. Imagings Data: EXAM DESCRIPTION: [place] Single View10/09/2019 11:36 am CLINICAL HISTORY: Chest pain COMPARISON: October 08, 2019 FINDINGS: The right hemithorax has become more hazy. Prominent reticulonodular opacities within the left lung. The heart is enlarged IMPRESSION: Prominent reticulonodular opacities left lung may indicate aspiration pneumonia Right hemithorax has become more hazy which may indicate right pneumonia superimposed over pleural thickening/effusion Conclusions/Impression: A/ JON/ CKD III Hypernatemia/ Dehydration Hypokalemia Hypocalcemia Anemia in chronic illness Severe malnutrition Dysphagia sp PEG Toxic metabolic encephalopathy. P/ Continue current POC and Medications. Give potassium prn. Increase free water through PEG 180X2 with each feeding. Agree with IV iron. Maintain nutrition. No NSAIDs. AM labs. Daily weight.
[2019-10-14] MEDS: ATORVASTATIN 40 MG TAB FT SCH (21:07)
[2019-10-14] MEDS: TRAZODONE 50 MG TABLET FT SCH (21:07)
[2019-10-15] MEDS: ARFORMOTEROL TARTRATE 15 MCG/2 ML VIAL.NEB NEB SCH ×2 (08:12→20:40)
[2019-10-15] MEDS: PROMOD 30 ML DOSE FT SCH ×2 (09:05→21:54)
[2019-10-15] MEDS: JEVITY 1.5 CAL LIQUID 1,000 ML BOT FT SCH ×5 (09:05→21:53)
[2019-10-15] MEDS: DOXYCYCLINE 100 MG CAP PO SCH ×2 (09:06→21:53)
[2019-10-15] MEDS: THIAMINE HCL 100 MG TABLET PO SCH (09:06)
[2019-10-15] MEDS: lisinopriL 5 MG TAB FT SCH (09:06)
[2019-10-15] MEDS: AMOX/K CLAV 500 MG TAB FT SCH ×2 (09:06→21:53)
[2019-10-15] MEDS: CALCITROL 0.25 MCG CAP PO SCH (09:06)
[2019-10-15] MEDS: MAGNESIUM OXIDE 400 MG TAB FT SCH (09:07)
[2019-10-15] MEDS: predniSONE 20 MG TAB FT SCH ×2 (09:07→21:53)
[2019-10-15] MEDS: ASPIRIN 81 MG CHEWABLE TABLET FT SCH (09:07)
[2019-10-15] MEDS: HEPARIN 5000 UNIT/ML 1 ML VIAL SQ SCH (09:07)
--- NOTE | 2019-10-15 12:37 | P.PN ---
Subjective Date of Service: 10/15/19 Primary Care Provider: Dr. Foster([facility]) Chief Complaint: Pneumonia Patient remained confused. Noted multiple ecchymosis/bruises on bilateral upper extremities. He has been taking on his arms. Physical Examination - Vital Signs Temperature: 97.7 F Blood Pressure: 122/56 Pulse: 62 Respirations: 18 Pulse Ox (%): 95 - Physical Exam General: Confused, Other (Awake) HEENT: PERRLA, Mucous membr. moist/pink Neck: Supple Respiratory: Clear to auscultation bilaterally, Normal air movement Cardiovascular: No edema, Normal S1 S2, Irregular heart rate/rhythm Gastrointestinal: Normal bowel sounds, Soft and benign, Non-distended, No tenderness Musculoskeletal: Erythema (Ecchymosis bilateral upper extremities) Neurological: Other (He moves all extremities spontaneously. Nonfocal.) - Studies Medications List Reviewed: Yes Assessment And Plan - Plan Altered mental status secondary to metabolic encephalopathy complicated with acute renal failure likely from dehydration and poor nutrition now with aspiration pneumonia/COPD exacerbation Bradycardia with history of Atrial fibrillation on chronic anti coagulation therapy Hypertension Chronic diastolic CHF History of CVALikely underlying dementia History of dysphagia now with PEG tube Moderate protein malnutrition Anemia of chronic disease Plan: Altered mental status secondary to metabolic/toxic encephalopathy complicated with acute renal failure likely from dehydration and poor nutrition now with aspiration pneumonia/COPD exacerbation: Clinically stable Confused. Continue with antibiotic treatment. Continue steroid and taper. Continue COPD treatment. Acute renal failure Resolved. Continue with nephrology recommendation. As mentioned previously cardiology and pulmonology recommend to discontinue amiodarone and Eliquis due to multiple risk factors including age, risk for bleeding and COPD. Continue with dietary recommendations. Spoke with daughter in detail about plan of care and advanced care planning. Family working to get patient to shelter near his daughter. Will discuss further with social work. I will turn the service over to the hospitalist team tomorrow. I will go plan of care with him. A advance care planning 30 min. Bradycardia with history of Atrial fibrillation on chronic anti coagulation therapy: Patient no longer on metoprolol and amiodarone/Eliquis per cardiology and pulmonology recommendation. Metoprolol discontinued due to bradycardia. Eliquis/amiodarone discontinued due to risk factors. Continue monitor closely. Continue aspirin. Hypertension: Continue low-dose lisinopril. Metoprolol has been discontinued. Chronic diastolic CHF: Lasix is on hold. Hypernatremia noted. Hypernatremia being treated with free water via PEG. History of CVA Likely underlying dementia: Continue as above. MRI brain negative. Continue with Neurology recommendations. Continue as above. History of dysphagia now with PEG tube: Continue dietary recommendations Moderate protein malnutrition: Continue dietary recommendation Anemia of chronic disease with iron deficiency: Monitor this closely. Continue iron Physician Review Additional Text: Impression: Altered mental status secondary to metabolic encephalopathy complicated with acute renal failure likely from dehydration and poor nutrition now with aspiration pneumonia/COPD exacerbation Bradycardia with history of Atrial fibrillation on chronic anti coagulation therapy Hypertension Chronic diastolic CHF History of CVALikely underlying dementia History of dysphagia now with PEG tube Moderate protein malnutrition Anemia of chronic disease Plan: Altered mental status secondary to metabolic/toxic encephalopathy complicated with acute renal failure likely from dehydration and poor nutrition now with aspiration pneumonia/COPD exacerbation: Patient has done well. Continue with a ntibiotic treatment. Continue steroid and taper. Will recheck chest x-ray today. Continue COPD treatment. Maintain sats above 93%. Patient overall stable from a respiratory standpoint. Renal failure resolved. Continue with pulmonology and nephrology recommendation. As mentioned previously cardiology and pulmonology recommend to discontinue amiodarone and Eliquis due to multiple risk factors including age, risk for bleeding and COPD. Continue with dietary recommendations. Spoke with daughter in detail about plan of care and advanced care planning. Family working to get patient to shelter near his daughter. Will discuss further with social work. I will turn the service over to the hospitalist team tomorrow. I will go plan of care with him. A advance care planning 30 min. Bradycardia with history of Atrial fibrillation on chronic anti coagulation therapy: Patient no longer on metoprolol and amiodarone/Eliquis. Metoprolol discontinued due to bradycardia. Eliquis/amiodarone discontinued due to risk factors. Continue monitor closely. Will provide DVT prophylaxis. Continue aspirin. Hypertension: Continue low-dose lisinopril. Metoprolol has been discontinued. Chronic diastolic CHF: Lasix continued to be held as fluids/oral intake well controlled. History of CVA Likely underlying dementia: Continue as above. MRI brain negative. Continue with Neurology recommendations. Continue as above. History of dysphagia now with PEG tube: Continue dietary recommendations Moderate protein malnutrition: Continue dietary recommendation Anemia of chronic disease with iron deficiency: Will monitor this closely. Continue iron
[2019-10-15] MEDS: NICOTINE 21 MG/PAT TD SCH (18:32)
[2019-10-15] MEDS: IPRATROPIUM BROM 0.5MG/2.5ML NEB PRN (20:40)
--- NOTE | 2019-10-15 21:26 | P.PN ---
Date of Service: 10/15/19 Vital Signs Temp Pulse Resp BP Pulse Ox 98.0 F 56 18 134/64 98 10/15/19 16:00 10/15/19 16:00 10/15/19 16:00 10/15/19 16:00 10/15/19 16:00 Medications Acetaminophen (Tylenol -Extra Strength) 500 mg FT Q4HP PRN PRN Reason: TEMP > 101' F Stop: 11/07/19 16:02 Last Admin: 10/14/19 21:10 Dose: 500 mg Documented by: Amoxicillin/Clavulanate Potassium (Augmentin 500-125 Mg Tab) 500 mg FT BID [facility]; Protocol Stop: 11/11/19 09:01 Last Admin: 10/15/19 09:06 Dose: 500 mg Documented by: Arformoterol Tartrate (Brovana) 15 mcg NEB BIDRESP DINORAH Stop: 11/09/19 20:01 Last Admin: 10/15/19 20:40 Dose: 15 mcg Documented by: Aspirin (Aspirin Chewable) 81 mg FT DAILY [facility] Stop: 11/12/19 09:01 Last Admin: 10/15/19 09:07 Dose: 81 mg Documented by: Atorvastatin Calcium (Lipitor) 40 mg FT BEDTIME DINORAH Stop: 11/07/19 21:01 Last Admin: 10/14/19 21:07 Dose: 40 mg Documented by: Calcitriol (Rocaltrol) 0.5 mcg PO DAILY [facility] Stop: 11/10/19 09:01 Last Admin: 10/15/19 09:06 Dose: 0.5 mcg Documented by: Doxycycline Monohydrate (Vibramycin) 100 mg PO BID [facility]; Protocol Stop: 11/11/19 09:01 Last Admin: 10/15/19 09:06 Dose: 100 mg Documented by: Haloperidol Lactate (Haldol) 2 mg IV Q6H PRN PRN Reason: AGITATION Stop: 11/07/19 16:02 Last Admin: 10/08/19 22:32 Dose: 2 mg Documented by: Ipratropium [place] (Atrovent Neb) 0.5 mg NEB [id number] PRN PRN Reason: SHORTNESS OF BREATH Stop: 11/09/19 14:01 Last Admin: 10/15/19 20:40 Dose: 0.5 mg Documented by: Lactulose (Cephulac) 20 gm FT TID PRN PRN Reason: CONSTIPATION Stop: 11/07/19 21:01 Lisinopril (Prinivil) 5 mg FT DAILY DINORAH Stop: 11/11/19 11:01 Last Admin: 10/15/19 09:06 Dose: 5 mg Documented by: Lorazepam (Ativan) 0.5 mg IV TID PRN PRN Reason: AGITATION Stop: 11/07/19 21:01 Last Admin: 10/12/19 00:07 Dose: 0.5 mg Documented by: Magnesium Oxide (Mag 0x Tab) 400 mg FT DAILY DINORAH Stop: 11/10/19 09:01 Last Admin: 10/15/19 09:07 Dose: 400 mg Documented by: Nicotine (Nicoderm) 21 mg TD DAILY DINOR[facility] Stop: 11/15/19 09:01 Last Admin: 10/15/19 18:32 Dose: 21 mg Documented by: Nutritional Formula (Promod Liquid Protein) 30 ml FT BID DINORAH Stop: 11/09/19 21:01 Last Admin: 10/15/19 09:05 Dose: 30 ml Documented by: Ondansetron HCl (Zofran) 4 mg IV Q6HP PRN PRN Reason: NAUSEA / VOMITING Stop: 11/07/19 16:02 Prednisone (Deltasone) 20 mg FT BID DINORAH Stop: 11/10/19 21:01 Last Admin: 10/15/19 09:07 Dose: 20 mg Documented by: Sodium Chloride (Normal Saline Flush) 10 ml IV BID DINORAH Stop: 11/07/19 21:01 Last Admin: 10/15/19 09:00 Dose: Not Given Documented by: Sterile Water (Sterile Water For Inj (10 Ml Vial)) 1.2 ml IM UD PRN PRN Reason: DILUTION OF MED Stop: 11/07/19 16:02 Last Admin: 10/12/19 01:54 Dose: 1.2 ml Documented by: Thiamine HCl (Vitamin B-1) 100 mg PO DAILY DINORAH Stop: 11/11/19 11:01 Last Admin: 10/15/19 09:06 Dose: 100 mg Documented by: Trazodone HCl (Desyrel) 50 mg FT BEDTIME DINORAH Stop: 11/09/19 21:01 Last Admin: 10/14/19 21:07 Dose: 50 mg Documented by: Ziprasidone (Geodon) 10 mg IM Q12H PRN PRN Reason: AGITATION Stop: 11/07/19 16:02 Last Admin: 10/12/19 01:53 Dose: 10 mg Documented by: Microbiology Results 10/08/19 07:40 Blood - Blood Aerobic Blood Culture - Final No growth in 5 days. 10/08/19 07:40 Blood - Blood Anaerobic Blood Culture - Final 10/08/19 06:27 Blood - Blood Aerobic Blood Culture - Final No growth in 5 days. 10/08/19 06:27 Blood - Blood Anaerobic Blood Culture - Final No growth in 5 days. Assessment/ Plan: Nephrology CPS stable without CP or SOB. Doing well. No acute events overnight. Vitals, medications, blood work and imaging reviewed in the chart. General: NAD HEENT: Atraumatic, Normocephalic Neck: Supple Respiratory: Clear to auscultation bilaterally Cardiovascular: No edema, Regular rate/rhythm Gastrointestinal: Soft and benign, Non-distended. PEG Musculoskeletal: No clubbing, No contractures Integumentary: No rashes, No cyanosis Neurological: Normal tone Blood work reviewed in the chart. Imagings Data: EXAM DESCRIPTION: Trent Single View10/09/2019 11:36 am CLINICAL HISTORY: Chest pain COMPARISON: October 08, 2019 FINDINGS: The right hemithorax has become more hazy. Prominent reticulonodular opacities within the left lung. The heart is enlarged IMPRESSION: Prominent reticulonodular opacities left lung may indicate aspiration pneumonia Right hemithorax has become more hazy which may indicate right pneumonia superimposed over pleural thickening/effusion Conclusions/Impression: A/ JON/ CKD III Hypernatemia/ Dehydration Hypokalemia Hypocalcemia Anemia in chronic illness Severe malnutrition Dysphagia sp PEG Toxic metabolic encephalopathy. P/ Continue current POC and Medications. Give potassium prn. Increase free water through PEG as needed. Maintain nutrition. No NSAIDs. AM labs. Daily weight.
[2019-10-15] MEDS: TRAZODONE 50 MG TABLET FT SCH (21:53)
[2019-10-15] MEDS: ATORVASTATIN 40 MG TAB FT SCH (21:53)
[2019-10-16] MEDS: ARFORMOTEROL TARTRATE 15 MCG/2 ML VIAL.NEB NEB SCH (07:50)
[2019-10-16] MEDS: MAGNESIUM OXIDE 400 MG TAB FT SCH (09:00)
[2019-10-16] MEDS: lisinopriL 5 MG TAB FT SCH (09:08)
[2019-10-16] MEDS: ASPIRIN 81 MG CHEWABLE TABLET FT SCH (09:09)
[2019-10-16] MEDS: CALCITROL 0.25 MCG CAP PO SCH (09:09)
[2019-10-16] MEDS: AMOX/K CLAV 500 MG TAB FT SCH (09:09)
[2019-10-16] MEDS: DOXYCYCLINE 100 MG CAP PO SCH (09:09)
[2019-10-16] MEDS: NICOTINE 21 MG/PAT TD SCH (09:10)
[2019-10-16] MEDS: predniSONE 20 MG TAB FT SCH (09:10)
[2019-10-16] MEDS: PROMOD 30 ML DOSE FT SCH (09:11)
[2019-10-16] MEDS: JEVITY 1.5 CAL LIQUID 1,000 ML BOT FT SCH ×4 (09:11→17:35)
[2019-10-16] MEDS: THIAMINE HCL 100 MG TABLET PO SCH (09:24)
[2019-10-16 09:32] VITALS: O2SAT 95
--- NOTE | 2019-10-16 12:58 | P.DS ---
Admission Date: Discharge Date: 10/16/19 Primary Care Provider: Dr. Foster([facility]) Disposition: TRANSFER TO [facility] Discharge Condition: FAIR Reason for Admission: Pneumonia Consultations: Pulmonology Nephrology Neurology Brief History of Present Illness: 63-year-old gentleman with a history of CVA, chronic atrial fibrillation on anticoagulation, recently discharged from rehab at an LTAC facility developed confusion and became combative and was brought to the emergency department for evaluation. The patient noted to have acute renal failure. Patient was admitted for further management. Hospital Course: Altered mental status secondary to metabolic/toxic encephalopathy complicated with acute renal failure likely from dehydration and poor nutrition now with aspiration pneumonia/COPD exacerbation: Clinically stable Confused. Patient treated with IV antibiotics and then transition to oral Augmentin and doxycycline. Continue steroid and taper. Continue COPD treatment. Acute renal failure Resolved. Seen by nephrology Cardiology and pulmonology recommend to discontinue amiodarone and Eliquis due to multiple risk factors including age, risk for bleeding and COPD. Continue with dietary recommendations. Spoke with daughter in detail about plan of care and advanced care planning. Family working to get patient to long-term near his daughter. Will discuss further with social work. I will turn the service over to the hospitalist team tomorrow. I will go plan of care with him. A advance care planning 30 min. Bradycardia with history of Atrial fibrillation on chronic anti coagulation therapy: Patient no longer on metoprolol and amiodarone/Eliquis per cardiology and pulmonology recommendation. Metoprolol discontinued due to bradycardia. Eliquis/amiodarone discontinued due to risk factors. Continue monitor closely. Continue aspirin. Hypertension: Continue low-dose lisinopril. Metoprolol has been discontinued. Chronic diastolic CHF: Lasix was held. Hypernatremia noted. Hypernatremia treated with free water via PEG. History of CVA Likely underlying dementia: MRI brain negative. Seen by Neurology recommendations. History of dysphagia now with PEG tube: Continued dietary recommendations and PEG tube feeding with Jevity Moderate protein malnutrition: Peg tube feeding Anemia of chronic disease with iron deficiency: Patient placed on iron therapy. Delirium With agitation. Patient treated with Haldol p.r.n. and Ziprasidone prn for agitation. His agitation improved with treatment. He is more interactive and obeying commands today and deemed clinically stable for discharge. Vital Signs/Physical Exam: Temp Pulse Resp BP Pulse Ox 97.8 F 57 19 146/64 H 98 10/16/19 08:00 10/16/19 09:08 10/16/19 08:00 10/16/19 09:08 10/16/19 08:00 General: Alert, In no apparent distress HEENT: Mucous membr. moist/pink, EOMI Neck: Supple, JVD not distended Respiratory: Clear to auscultation bilaterally, Normal air movement Cardiovascular: No edema, Regular rate/rhythm, Normal S1 S2 Capillary refill: <2 Seconds Gastrointestinal: Normal bowel sounds, Soft and benign, No tenderness Musculoskeletal: Erythema (Ecchymosis bilateral upper extremities.) Neurological: Other (Moves all extremities spontaneously.) Laboratory Data at Discharge: WBC 11.1 K/uL (4.3-10.9) H 10/13/19 04:00 Hgb 10.0 g/dL (13.6-17.9) L 10/13/19 04:00 Hct 30.7 % (39.6-49.0) L 10/13/19 04:00 Plt Count 257 K/uL (152-406) 10/13/19 04:00 PT 19.0 SECONDS (9.5-12.5) H 10/11/19 14:56 INR 1.63 10/11/19 14:56 Sodium 146 mmol/L (136-145) H 10/14/19 04:16 Potassium 4.6 mmol/L (3.5-5.1) 10/14/19 04:16 BUN 24 mg/dL (7-18) H 10/14/19 04:16 Creatinine 0.66 mg/dL (0.55-1.3) 10/14/19 04:16 Glucose 112 mg/dL (74-106) H 10/14/19 04:16 Uric Acid 5.3 mg/dL (3.5-7.2) 10/10/19 05:35 Phosphorus 2.7 mg/dL (2.5-4.9) 10/13/19 04:00 Magnesium 2.5 mg/dL (1.8-2.4) H 10/13/19 04:00 Total Bilirubin 1.3 mg/dL (0.2-1.0) H 10/11/19 14:56 AST 51 U/L (15-37) H 10/11/19 14:56 ALT 49 U/L (12-78) 10/11/19 14:56 Alkaline Phosphatase 159 U/L (45-117) H 10/11/19 14:56 Troponin I 0.08 ng/mL (0.0-0.045) H 10/09/19 00:36 Triglycerides 31 mg/dL (<150) 10/09/19 07:06 Cholesterol < 50 mg/dL (<200) 10/09/19 07:06 HDL Cholesterol 34 mg/dL (40-60) L 10/09/19 07:06 Cholesterol/HDL Ratio 1.47 10/09/19 07:06 Home Medications: Ferrous Sulfate [Ferrous Sulfate*] 1 tab FT BID 10/09/19 Fluticasone [Flonase 50MCG Nasal [place]*] 2 spray EJLENA DAILY 10/09/19 Furosemide [Lasix*] 40 mg FT DAILY 10/09/19 Lactulose [Cephulac*] 30 ml FT BID 10/09/19 Magnesium Oxide [Mag 0X*] 1 tab FT DAILY 10/09/19 Trazodone [Desyrel*] 1 tab FT BEDTIME 10/09/19 Amox/K Clav [Augmentin 600 MG/5 ML Susp] 5 ml FT BID #50 ml 10/16/19 Arformoterol Tartrate [Brovana] 15 mcg NEB BIDRESP #60 vial.neb 10/16/19 Aspirin Chewable [Aspirin Chewable*] 81 mg FT DAILY #30 tab.chew 10/16/19 Atorvastatin Calcium [Lipitor] 40 mg FT BEDTIME #30 tab 10/16/19 Calcitrol [Rocaltrol*] 0.5 mcg PO DAILY #30 cap 10/16/19 Doxycycline Hyclate 100 mg FT BID 10 Days tablet 10/16/19 Doxycycline Hyclate [Vibramycin] 100 mg PO BID #20 capsule 10/16/19 Ipratropium Neb [Atrovent*] 0.5 mg NEB [id number] PRN #120 amp 10/16/19 Jevity 1.5 [place] Liquid 237 ml FT 5XD #0 bot 10/16/19 Lactulose [Cephulac*] 30 ml FT TID PRN ucup 10/16/19 Lactulose [Cephulac*] 30 ml PO TID PRN #900 ml 10/16/19 Nicotine [Nicoderm*] 21 mg TD DAILY patch.td24 10/16/19 Thiamine HCl [Vitamin B-1*] 100 mg PO DAILY tablet 10/16/19 Thiamine HCl [Vitamin B-1*] 100 mg PO DAILY #30 tablet 10/16/19 lisinopriL [Prinivil*] 5 mg FT DAILY tab 10/16/19 lisinopriL [Prinivil*] 5 mg PO DAILY #30 tab 10/16/19 predniSONE [Prednisone*] 20 mg FT BID #10 tab 10/16/19 New Medications: Ipratropium Neb [Atrovent*] 0.5 mg NEB [id number] PRN #120 amp PRN Reason: Shortness Of Breath Aspirin Chewable [Aspirin Chewable*] 81 mg FT DAILY #30 tab.chew Amox/K Clav [Augmentin 600 MG/5 ML Susp] 5 ml FT BID #50 ml Arformoterol Tartrate [Brovana] 15 mcg NEB BIDRESP #60 vial.neb Doxycycline Hyclate 100 mg FT BID 10 Days tablet Atorvastatin Calcium [Lipitor] 40 mg FT BEDTIME #30 tab predniSONE [Prednisone*] 20 mg FT BID #10 tab Calcitrol [Rocaltrol*] 0.5 mcg PO DAILY #30 cap Diet: Jevity tube feeding. Please see med. rec. Time spent managing pt's care (in minutes): 44
[2019-10-16 14:20] VITALS: BP 117/56; TEMP 97.9
--- NOTE | 2019-10-16 17:05 | P.PN ---
Subjective Date of Service: 10/16/19 Primary Care Provider: Dr. Foster([facility]) Chief Complaint: Pneumonia Patient appear more interactive today. No issues overnight. Physical Examination - Vital Signs Temperature: 97.9 F Blood Pressure: 117/56 Pulse: 59 Respirations: 18 Pulse Ox (%): 97 - Physical Exam General: In no apparent distress, Other (Awake) HEENT: Mucous membr. moist/pink Respiratory: Clear to auscultation bilaterally, Normal air movement Cardiovascular: Regular rate/rhythm, Normal S1 S2 Gastrointestinal: Normal bowel sounds, Soft and benign, No tenderness Integumentary: Erythema (Ecchymoses on bilateral upper extremities) Neurological: Other (Moves all extremities spontaneously.) - Studies Medications List Reviewed: Yes Assessment And Plan - Plan Altered mental status secondary to metabolic encephalopathy complicated with acute renal failure likely from dehydration and poor nutrition now with aspiration pneumonia/COPD exacerbation Bradycardia with history of Atrial fibrillation on chronic anti coagulation therapy Hypertension Chronic diastolic CHF History of CVALikely underlying dementia History of dysphagia now with PEG tube Moderate protein malnutrition Anemia of chronic disease Plan: Altered mental status secondary to metabolic/toxic encephalopathy complicated with acute renal failure likely from dehydration and poor nutrition now with aspiration pneumonia/COPD exacerbation: Clinically stable Confused. Continue with antibiotic treatment. Continue steroid and taper. Continue COPD treatment. Acute renal failure Resolved. Continue with nephrology recommendation. Amiodarone and Eliquis discontinued. Family working to get patient to retirement near his daughter. Bradycardia with history of Atrial fibrillation on chronic anti coagulation therapy: Metoprolol, amiodarone and Eliquis discontinued per cardiology and pulmonology recommendation. Metoprolol and amiodarone discontinued due to bradycardia. Eliquis discontinued due to bleeding risk factors. Continue monitor closely. Continue aspirin. Hypertension: Continue low-dose lisinopril. Metoprolol has been discontinued. Chronic diastolic CHF: Lasix is on hold. Hypernatremia noted. Hypernatremia being treated with free water via PEG. History of CVA Likely underlying dementia: Continue as above. MRI brain negative. Continue with Neurology recommendations. Continue as above. History of dysphagia now with PEG tube: Continue dietary recommendations Moderate protein malnutrition: Continue dietary recommendation Anemia of chronic disease with iron deficiency: Monitor this closely. Continue iron
--- NOTE | 2019-10-16 23:01 | P.PN ---
Date of Service: 10/16/19 Vital Signs Temp Pulse Resp BP Pulse Ox 97.9 F 59 18 117/56 L 97 10/16/19 17:06 10/16/19 17:06 10/16/19 17:06 10/16/19 17:06 10/16/19 17:06 Microbiology Results 10/08/19 07:40 Blood - Blood Aerobic Blood Culture - Final No growth in 5 days. 10/08/19 07:40 Blood - Blood Anaerobic Blood Culture - Final 10/08/19 06:27 Blood - Blood Aerobic Blood Culture - Final No growth in 5 days. 10/08/19 06:27 Blood - Blood Anaerobic Blood Culture - Final No growth in 5 days. Assessment/ Plan: Nephrology CPS stable without CP or SOB. Doing well. No acute events overnight. Vitals, medications, blood work and imaging reviewed in the chart. General: NAD HEENT: Atraumatic, Normocephalic Neck: Supple Respiratory: Clear to auscultation bilaterally Cardiovascular: No edema, Regular rate/rhythm Gastrointestinal: Soft and benign, Non-distended. PEG Musculoskeletal: No clubbing, No contractures Integumentary: No rashes, No cyanosis Neurological: Normal tone Blood work reviewed in the chart. Imagings Data: EXAM DESCRIPTION: Trent Single View10/09/2019 11:36 am CLINICAL HISTORY: Chest pain COMPARISON: October 08, 2019 FINDINGS: The right hemithorax has become more hazy. Prominent reticulonodular opacities within the left lung. The heart is enlarged IMPRESSION: Prominent reticulonodular opacities left lung may indicate aspiration pneumonia Right hemithorax has become more hazy which may indicate right pneumonia superimposed over pleural thickening/effusion Conclusions/Impression: A/ JON/ CKD III Hypernatemia/ Dehydration Hypokalemia Hypocalcemia Anemia in chronic illness Severe malnutrition Dysphagia sp PEG Toxic metabolic encephalopathy. P/ Continue current POC and Medications. Give potassium prn. Increase free water through PEG as needed. Maintain nutrition. No NSAIDs. AM labs. Daily weight.
== END 2019-10-16 18:45 | disposition home or self-care (01) | DRG 682 ==
LOC: ER 06:15 → ERHOLD 09:28 → 2ND 11:32
PROVIDERS: ADMIT Family Medicine; ATTEND Internal Medicine
DX: N17.9 Acute kidney failure, unspecified (principal); G92 Toxic encephalopathy; J69.0 Pneumonitis due to inhalation of food and vomit; R40.2222 Coma scale, best verbal response, incomprehensible words, at arrival to emergency department; I13.0 Hypertensive heart and chronic kidney disease with heart failure and stage 1 through stage 4 chronic kidney disease, or unspecified chronic kidney disease; I50.32 Chronic diastolic (congestive) heart failure; J44.1 Chronic obstructive pulmonary disease with (acute) exacerbation; E87.0 Hyperosmolality and hypernatremia; E44.0 Moderate protein-calorie malnutrition; Z94.1 Heart transplant status; N18.3 Chronic kidney disease, stage 3 (moderate); D63.1 Anemia in chronic kidney disease; I48.91 Unspecified atrial fibrillation; E86.0 Dehydration; E87.6 Hypokalemia; E83.51 Hypocalcemia; R40.2362 Coma scale, best motor response, obeys commands, at arrival to emergency department; R40.2132 Coma scale, eyes open, to sound, at arrival to emergency department; R13.10 Dysphagia, unspecified; Z66 Do not resuscitate; E78.5 Hyperlipidemia, unspecified; R41.0 Disorientation, unspecified; Z68.25 Body mass index [BMI] 25.0-25.9, adult; Z79.01 Long term (current) use of anticoagulants; Z87.820 Personal history of traumatic brain injury; Z93.1 Gastrostomy status; Z79.82 Long term (current) use of aspirin; Z11.59 Encounter for screening for other viral diseases
CPT/HCPCS: 36415; 70450; 70551; 71045; 71250; 74176; 80048; 80053; 80061; 80076; 81003; 82140; 82533; 82550; 82553; 82607; 82746; 82805; 82947; 83540; 83605; 83735; 83880; 84100; 84132; 84439; 84443; 84466; 84484; 84550; 85025; 85610; 86140; 87040; 87086; 87088; 93005; 94640; 95816; 96372; 99291; 99292; J1610; J1630; J1644; J2405; J2543; J2916; J2930; J3370; J3411; J3480; J3486; J7030; J7042; J7050; J7512; J7605; J7606; J7799; U0003

== ENCOUNTER 2019-11-20 09:30 | Inpatient (IN) | payer OTHER ==
--- OUTSIDE RECORDS SUMMARY | 2019-11-20 09:36 | XMS REPORT | Clinical Summary ---
:1955 Author Organization [facility] Address [address] [place] [address] Care Team Providers Name Role Phone Pcp, [...] hypercapnia (HCC); MD Ammy Simple chronic bronchitis ([facility]); France Drake History of alcohol use disorder; MD Leonor Severe protein- calorie malnutrition (HCC); Metabolic alkal osis; Elevated liver function tests 05/30/2019 Telephone Critical Care Petrona Fountain, [id number] Call Medicine 05/08/2019 Hospital Encounter Radiology Manoje, [place] Pleural effusion Nia 05/08/2019 Outside Orders Central Scheduling Manoje, [place] Pleura l effusion Nia (Primary Dx) 04/23/2019 Travel 04/14/2019 Surgery Fernando Andrews THORACOSCOPY MD Bob (VATS),DECORTIC ATION 04/14/2019 Anesthesia Event Elham Holguin MD 04/11/2019 Anesthesia Event Gastroenterology Quiana Chavez, CMS EXPERT 04/11/2019 Surgery Gastroenterology Gabriel Peña UPPER END OSCOPY,PEG MD Kadeem 03/20/2019 Orders Only General Internal Medicine 03/19/2019 Hospital Encounter Cardiology Robb, Hypovolem ic shock (HCC) (Primary Dx); - Britton Acute hypercapn ic respiratory failure (HCC); 04/25/2019 MD Johnnie Cerebrovascular accident (CVA), unspecif ied mechanism ([facility]); Tomer Lora Acute metaboli c encephalopathy; MD Evelyn Longstanding persistent atrial fibrillat ion; Laya Tabares, Moderate pr otein-calorie malnutrition (HCC); Jerald Whitney, Acute on chr onic diastolic CHF (congestive heart failure), NYHA class 4 ([facility]); Atrial fibrillation with RVR ([facility]); Jean Marie Leukocytosis, u nspecified type; Britton Other specified hypotension; MD Irineo Chronic pleural effusion; Areli Hong MD Bilateral pleural effusion; Nalam, Yahaira Acute respirato ry failure with hypoxia and hypercapnia ([facility]); MD Sangita Aspiration pneumonia, unspecified aspira tion pneumonia type, unspecified laterality, unspecified part of lung ([facility]); Bharti Kamara MD Acute on chronic respiratory [...] Documentation Internal Medicine Inna Bailey MD after 11/19/2018 Family History Medical History Relation Name Comments [...] containing 4 or more times a w akhiok 01/21/2019 alcohol? How many drinks containing alcohol [...] Comments COLON CANCER SCREENING COLONOSCOPY 1955 PNEUMOCOCCAL 65+ LOW/MEDIUM RISK 10/21/2019 (1 of 2 - PCV13) INFLUENZA VACCINE (#1) 2019 LIPID PANEL 03/20/2022 03/20/2019, 01/22/2019, 11/12/2018, Additional history exists Procedures Procedure Name Priority Date/Time Associated Comments [...] RHYTHM STRIP - SCAN 05/01/2019 5:29 PM MEDICINE WORKER RHYTHM STRIP - SCAN 04/28/2019 3:01 PM MEDICINE WORKER RHYTHM STRIP - SCAN 04/28/2019 3:01 PM MEDICINE WORKER XR CHEST 1 VIEW Routine 04/25/2019 6:45 Results for PORTABLE/BEDSIDE AM MEDICINE WORKER this proced ure are in the results section. CBC W/PLT COUNT & AUTO Routine 04/25/2019 4:52 R esults for DIFFERENTIAL AM MEDICINE WORKER this procedure are in the results section. PHOSPHORUS Routine 04/25/2019 4:52 Results for AM MEDICINE WORKER this procedure are in the results section. MAGNESIUM Routine 04/25/2019 4:52 Results for AM MEDICINE WORKER this procedure are in the results section. CBC W/PLT COUNT & AUTO Routine 04/25/2019 4:52 R esults for DIFFERENTIAL AM MEDICINE WORKER this procedure are in the results section. BASIC METABOLIC PANEL (7) Routine 04/25/2019 4:52 Results for AM MEDICINE WORKER this procedure are in the results section. XR CHEST 1 VIEW Routine 04/24/2019 6:56 Results for PORTABLE/BEDSIDE AM MEDICINE WORKER this proced ure are in the results section. CBC W/PLT COUNT & AUTO Routine 04/24/2019 4:11 R esults for DIFFERENTIAL AM MEDICINE WORKER this procedure are in the results section. PHOSPHORUS Routine 04/24/2019 4:11 Results for AM MEDICINE WORKER this procedure are in the results section. MAGNESIUM Routine 04/24/2019 4:11 Results for AM MEDICINE WORKER this procedure are in the results section. CBC W/PLT COUNT & AUTO Routine 04/24/2019 4:11 R esults for DIFFERENTIAL AM MEDICINE WORKER this procedure are in the results section. BASIC METABOLIC PANEL (7) Routine 04/24/2019 4:11 Results for AM MEDICINE WORKER this procedure are in the results section. XR CHEST 1 VIEW Routine 04/23/2019 1:57 Results for PORTABLE/BEDSIDE PM MEDICINE WORKER this proced ure are in the results section. XR CHEST 1 VIEW Routine 04/23/2019 6:31 Results for PORTABLE/BEDSIDE AM MEDICINE WORKER this proced ure are in the results section. CBC W/PLT COUNT & AUTO Routine 04/23/2019 3:53 R esults for DIFFERENTIAL AM MEDICINE WORKER this procedure are in the results section. PREALBUMIN Routine 04/23/2019 3:53 Results for AM MEDICINE WORKER this procedure are in the results section. PHOSPHORUS Routine 04/23/2019 3:53 Results for AM MEDICINE WORKER this procedure are in the results section. MAGNESIUM Routine 04/23/2019 3:53 Results for AM MEDICINE WORKER this procedure are in the results section. CBC W/PLT COUNT & AUTO Routine 04/23/2019 3:53 R esults for DIFFERENTIAL AM MEDICINE WORKER this procedure are in the results section. BASIC METABOLIC PANEL (7) Routine 04/23/2019 3:53 Results for AM MEDICINE WORKER this procedure are in the results section. XR ESOPH SWALLOW FUNCTION Routine 04/22/2019 2:30 Results for W/CINE VIDEO PM MEDICINE WORKER this procedure are in the results section. XR CHEST 1 VIEW Routine 04/22/2019 5:49 Results for PORTABLE/BEDSIDE AM MEDICINE WORKER this proced ure are in the results section. PHOSPHORUS Routine 04/22/2019 4:02 Results for AM MEDICINE WORKER this procedure are in the results section. MAGNESIUM Routine 04/22/2019 4:02 Results for AM MEDICINE WORKER this procedure are in the results section. BASIC METABOLIC PANEL (7) Routine 04/22/2019 4:02 Results for AM MEDICINE WORKER this procedure are in the results section. CBC W/PLT COUNT & AUTO Routine 04/22/2019 3:23 R esults for DIFFERENTIAL AM MEDICINE WORKER this procedure are in the results section. CBC W/PLT COUNT & AUTO Routine 04/22/2019 3:23 R esults for DIFFERENTIAL AM MEDICINE WORKER this procedure are in the results section. MAGNESIUM Routine 04/21/2019 12:23 Results for PM MEDICINE WORKER this procedure are in the results section. BASIC METABOLIC PANEL (7) Routine 04/21/2019 12:23 Results for PM MEDICINE WORKER this procedure are in the results section. XR CHEST 1 VIEW Routine 04/21/2019 3:59 Results for PORTABLE/BEDSIDE AM MEDICINE WORKER this proced ure are in the results section. PHOSPHORUS Routine 04/21/2019 3:43 Results for AM MEDICINE WORKER this procedure are in the results section. MAGNESIUM Routine 04/21/2019 3:43 Results for AM MEDICINE WORKER this procedure are in the results section. BASIC METABOLIC PANEL (7) Routine 04/21/2019 3:43 Results for AM MEDICINE WORKER this procedure are in the results section. CBC W/PLT COUNT & AUTO Routine 04/21/2019 3:42 R esults for DIFFERENTIAL AM MEDICINE WORKER this procedure are in the results section. CBC W/PLT COUNT & AUTO Routine 04/21/2019 3:42 R esults for DIFFERENTIAL AM MEDICINE WORKER this procedure are in the results section. CBC W/PLT COUNT & AUTO Routine 04/20/2019 3:19 R esults for DIFFERENTIAL PM MEDICINE WORKER this procedure are in the results section. MAGNESIUM Routine 04/20/2019 3:19 Results for PM MEDICINE WORKER this procedure are in the results section. CBC W/PLT COUNT & AUTO Routine 04/20/2019 3:19 R esults for DIFFERENTIAL PM MEDICINE WORKER this procedure are in the results section. PHOSPHORUS Routine 04/20/2019 3:19 Results for PM MEDICINE WORKER this procedure are in the results section. BASIC METABOLIC PANEL (7) Routine 04/20/2019 3:19 Results for PM MEDICINE WORKER this procedure are in the results section. POCT-GLUCOSE METER Routine 04/20/2019 12:17 Resul ts for PM MEDICINE WORKER this procedure are in the results section. XR CHEST 1 VIEW Routine 04/20/2019 5:50 Results for PORTABLE/BEDSIDE AM MEDICINE WORKER this proced ure are in the results section. CBC W/PLT COUNT & AUTO Routine 04/20/2019 3:21 R esults for DIFFERENTIAL AM MEDICINE WORKER this procedure are in the results section. MAGNESIUM Routine 04/20/2019 3:21 Results for AM MEDICINE WORKER this procedure are in the results section. CBC W/PLT COUNT & AUTO Routine 04/20/2019 3:21 R esults for DIFFERENTIAL AM MEDICINE WORKER this procedure are in the results section. PHOSPHORUS Routine 04/20/2019 3:21 Results for AM MEDICINE WORKER this procedure are in the results section. BASIC METABOLIC PANEL (7) Routine 04/20/2019 3:21 Results for AM MEDICINE WORKER this procedure are in the results section. POCT-GLUCOSE METER Routine 04/20/2019 12:07 Resul ts for AM MEDICINE WORKER this procedure are in the results section. TRANSFUSION SERVICE 04/19/2019 6:02 REPORT - SCAN PM MEDICINE WORKER CBC W/PLT COUNT & AUTO Routine 04/19/2019 5:34 R esults for DIFFERENTIAL PM MEDICINE WORKER this procedure are in the results section. MAGNESIUM Routine 04/19/2019 5:34 Results for PM MEDICINE WORKER this procedure are in the results section. CBC W/PLT COUNT & AUTO Routine 04/19/2019 5:34 R esults for DIFFERENTIAL PM MEDICINE WORKER this procedure are in the results section. PHOSPHORUS Routine 04/19/2019 5:34 Results for PM MEDICINE WORKER this procedure are in the results section. BASIC METABOLIC PANEL (7) Routine 04/19/2019 5:34 Results for PM MEDICINE WORKER this procedure are in the results section. XR CHEST 1 VIEW Routine 04/19/2019 5:48 Results for PORTABLE/BEDSIDE AM MEDICINE WORKER this proced ure are in the results section. CBC W/PLT COUNT & AUTO Routine 04/19/2019 3:26 R esults for DIFFERENTIAL AM MEDICINE WORKER this procedure are in the results section. MAGNESIUM Routine 04/19/2019 3:26 Results for AM MEDICINE WORKER this procedure are in the results section. CBC W/PLT COUNT & AUTO Routine 04/19/2019 3:26 R esults for DIFFERENTIAL AM MEDICINE WORKER this procedure are in the results section. PHOSPHORUS Routine 04/19/2019 3:26 Results for AM MEDICINE WORKER this procedure are in the results section. BASIC METABOLIC PANEL (7) Routine 04/19/2019 3:26 Results for AM MEDICINE WORKER this procedure are in the results section. POCT-GLUCOSE METER Routine 04/19/2019 12:23 Resul ts for AM MEDICINE WORKER this procedure are in the results section. PREPARE LEUKO-REDUCED RBC Routine 04/18/2019 11:54 Results for PM MEDICINE WORKER this procedure are in the results section. POCT-GLUCOSE METER Routine 04/18/2019 6:27 Resul ts for PM MEDICINE WORKER this procedure are in the results section. TRANSFUSION SERVICE 04/18/2019 6:02 REPORT - SCAN PM MEDICINE WORKER CBC W/PLT COUNT & AUTO Routine 04/18/2019 6:02 R esults for DIFFERENTIAL PM MEDICINE WORKER this procedure are in the results section. MAGNESIUM Routine 04/18/2019 6:02 Results for PM MEDICINE WORKER this procedure are in the results section. CBC W/PLT COUNT & AUTO Routine 04/18/2019 6:02 R esults for DIFFERENTIAL PM MEDICINE WORKER this procedure are in the results section. PHOSPHORUS Routine 04/18/2019 6:02 Results for PM MEDICINE WORKER this procedure are in the results section. BASIC METABOLIC PANEL (7) Routine 04/18/2019 6:02 Results for PM MEDICINE WORKER this procedure are in the results section. POCT-GLUCOSE METER Routine 04/18/2019 11:46 Resul ts for AM MEDICINE WORKER this procedure are in the results section. POCT-GLUCOSE METER Routine 04/18/2019 5:54 Resul ts for AM MEDICINE WORKER this procedure are in the results section. XR CHEST 1 VIEW Routine 04/18/2019 5:36 Results for PORTABLE/BEDSIDE AM MEDICINE WORKER this proced ure are in the results section. BLOOD GAS, ARTERIAL Routine 04/18/2019 2:37 Resu lts for AM MEDICINE WORKER this procedure are in the results section. CBC W/PLT COUNT & AUTO Routine 04/18/2019 2:36 R esults for DIFFERENTIAL AM MEDICINE WORKER this procedure are in the results section. MAGNESIUM Routine 04/18/2019 2:36 Results for AM MEDICINE WORKER this procedure are in the results section. CBC W/PLT COUNT & AUTO Routine 04/18/2019 2:36 R esults for DIFFERENTIAL AM MEDICINE WORKER this procedure are in the results section. PHOSPHORUS Routine 04/18/2019 2:36 Results for AM MEDICINE WORKER this procedure are in the results section. BASIC METABOLIC PANEL (7) Routine 04/18/2019 2:36 Results for AM MEDICINE WORKER this procedure are in the results section. POCT-GLUCOSE METER Routine 04/18/2019 12:19 Resul ts for AM MEDICINE WORKER this procedure are in the results section. POCT-GLUCOSE METER Routine 04/17/2019 6:30 Resul ts for PM MEDICINE WORKER this procedure are in the results section. TRANSFUSION SERVICE 04/17/2019 5:52 REPORT - SCAN PM MEDICINE WORKER BLOOD GAS, ARTERIAL Routine 04/17/2019 4:17 Resu lts for PM MEDICINE WORKER this procedure are in the results section. CBC W/PLT COUNT & AUTO Routine 04/17/2019 4:16 R esults for DIFFERENTIAL PM MEDICINE WORKER this procedure are in the results section. MAGNESIUM Routine 04/17/2019 4:16 Results for PM MEDICINE WORKER this procedure are in the results section. CBC W/PLT COUNT & AUTO Routine 04/17/2019 4:16 R esults for DIFFERENTIAL PM MEDICINE WORKER this procedure are in the results section. PHOSPHORUS Routine 04/17/2019 4:16 Results for PM MEDICINE WORKER this procedure are in the results section. BASIC METABOLIC PANEL (7) Routine 04/17/2019 4:16 Results for PM MEDICINE WORKER this procedure are in the results section. POCT-GLUCOSE METER Routine 04/17/2019 1:14 Resul ts for PM MEDICINE WORKER this procedure are in the results section. TRANSFUSE LEUKO-REDUCED Routine 04/17/2019 11:41 RED BLOOD CELLS AM MEDICINE WORKER XR CHEST 1 VIEW Routine 04/17/2019 6:07 Results for PORTABLE/BEDSIDE AM MEDICINE WORKER this proced ure are in the results section. POCT-GLUCOSE METER Routine 04/17/2019 5:32 Resul ts for AM MEDICINE WORKER this procedure are in the results section. CBC W/PLT COUNT & AUTO Routine 04/17/2019 3:30 R esults for DIFFERENTIAL AM MEDICINE WORKER this procedure are in the results section. MAGNESIUM Routine 04/17/2019 3:30 Results for AM MEDICINE WORKER this procedure are in the results section. APTT Routine 04/17/2019 3:30 Results for AM MEDICINE WORKER this procedure are in the results section. PROTHROMBIN TIME/INR Routine 04/17/2019 3:30 Res ults for AM MEDICINE WORKER this procedure are in the results section. CBC W/PLT COUNT & AUTO Routine 04/17/2019 3:30 R esults for DIFFERENTIAL AM MEDICINE WORKER this procedure are in the results section. PHOSPHORUS Routine 04/17/2019 3:30 Results for AM MEDICINE WORKER this procedure are in the results section. BASIC METABOLIC PANEL (7) Routine 04/17/2019 3:30 Results for AM MEDICINE WORKER this procedure are in the results section. BLOOD GAS, ARTERIAL Routine 04/17/2019 3:30 Resu lts for AM MEDICINE WORKER this procedure are in the results section. HEMOGLOBIN AND HEMATOCRIT STAT 04/17/2019 12:27 Results for AM MEDICINE WORKER this procedure are in the results section. POCT-GLUCOSE METER Routine 04/17/2019 12:10 Resul ts for AM MEDICINE WORKER this procedure are in the results section. PREPARE LEUKO-REDUCED RBC STAT 04/16/2019 11:54 Results for PM MEDICINE WORKER this procedure are in the results section. PREPARE LEUKO-REDUCED RBC STAT 04/16/2019 11:54 Results for PM MEDICINE WORKER this procedure are in the results section. PREPARE LEUKO-REDUCED RBC STAT 04/16/2019 11:54 Results for PM MEDICINE WORKER this procedure are in the results section. PREPARE PLASMA STAT 04/16/2019 11:54 Results f or PM MEDICINE WORKER this procedure are in the results section. PREPARE CRYOPRECIPITATE Routine 04/16/2019 11:54 Results for PM MEDICINE WORKER this procedure are in the results section. PREPARE LEUKO-REDUCED RBC Routine 04/16/2019 11:54 Results for PM MEDICINE WORKER this procedure are in the results section. PREPARE LEUKO-REDUCED RBC Routine 04/16/2019 11:54 Results for PM MEDICINE WORKER this procedure are in the results section. PERIPHERAL VASCULAR 04/16/2019 9:23 REPORT - SCAN PM MEDICINE WORKER POCT-GLUCOSE METER Routine 04/16/2019 6:48 Resul ts for PM MEDICINE WORKER this procedure are in the results section. TRANSFUSION SERVICE 04/16/2019 5:52 REPORT - SCAN PM MEDICINE WORKER CBC W/PLT COUNT & AUTO Routine 04/16/2019 4:02 R esults for DIFFERENTIAL PM MEDICINE WORKER this procedure are in the results section. BASIC METABOLIC PANEL (7) Routine 04/16/2019 4:02 Results for PM MEDICINE WORKER this procedure are in the results section. CBC W/PLT COUNT & AUTO Routine 04/16/2019 4:02 R esults for DIFFERENTIAL PM MEDICINE WORKER this procedure are in the results section. PHOSPHORUS Routine 04/16/2019 4:02 Results for PM MEDICINE WORKER this procedure are in the results section. BLOOD GAS, ARTERIAL Routine 04/16/2019 4:02 Resu lts for PM MEDICINE WORKER this procedure are in the results section. POCT-GLUCOSE METER Routine 04/16/2019 1:24 Resul ts for PM MEDICINE WORKER this procedure are in the results section. HEMOGLOBIN AND HEMATOCRIT Routine 04/16/2019 9:09 Results for AM MEDICINE WORKER this procedure are in the results section. XR CHEST 1 VIEW Routine 04/16/2019 3:46 Results for PORTABLE/BEDSIDE AM MEDICINE WORKER this proced ure are in the results section. CBC W/PLT COUNT & AUTO Routine 04/16/2019 3:28 R esults for DIFFERENTIAL AM MEDICINE WORKER this procedure are in the results section. CALCIUM, IONIZED STAT 04/16/2019 3:28 Results for AM MEDICINE WORKER this procedure are in the results section. APTT Routine 04/16/2019 3:28 Results for AM MEDICINE WORKER this procedure are in the results section. PROTHROMBIN TIME/INR Routine 04/16/2019 3:28 Res ults for AM MEDICINE WORKER this procedure are in the results section. CBC W/PLT COUNT & AUTO Routine 04/16/2019 3:28 R esults for DIFFERENTIAL AM MEDICINE WORKER this procedure are in the results section. PHOSPHORUS Routine 04/16/2019 3:28 Results for AM MEDICINE WORKER this procedure are in the results section. BASIC METABOLIC PANEL (7) Routine 04/16/2019 3:28 Results for AM MEDICINE WORKER this procedure are in the results section. MAGNESIUM Routine 04/16/2019 3:28 Results for AM MEDICINE WORKER this procedure are in the results section. BLOOD GAS, ARTERIAL Routine 04/16/2019 3:24 Resu lts for AM MEDICINE WORKER this procedure are in the results section. TRANSFUSE LEUKO-REDUCED Routine 04/16/2019 1:54 RED BLOOD CELLS AM MEDICINE WORKER POCT-GLUCOSE METER Routine 04/15/2019 11:14 Resul ts for PM MEDICINE WORKER this procedure are in the results section. CBC W/PLT COUNT & AUTO Routine 04/15/2019 10:51 R esults for DIFFERENTIAL PM MEDICINE WORKER this procedure are in the results section. CBC W/PLT COUNT & AUTO Routine 04/15/2019 10:51 R esults for DIFFERENTIAL PM MEDICINE WORKER this procedure are in the results section. TRANSFUSE LEUKO-REDUCED Routine 04/15/2019 9:45 RED BLOOD CELLS PM MEDICINE WORKER TRANSFUSION SERVICE 04/15/2019 6:08 REPORT - SCAN PM MEDICINE WORKER US GUIDE, VASCULAR ACCESS Routine 04/15/2019 5:48 Hypovolemic shock Results for PM MEDICINE WORKER (HCC) this procedure are in the results section. INSERT NON-TUNNEL CV CATH Routine 04/15/2019 5:48 Hypovolemic shock Results for PM MEDICINE WORKER (HCC) this procedure are in the results section. BLOOD GAS, ARTERIAL Routine 04/15/2019 4:04 Resu lts for PM MEDICINE WORKER this procedure are in the results section. CBC W/PLT COUNT & AUTO Routine 04/15/2019 4:03 R esults for DIFFERENTIAL PM MEDICINE WORKER this procedure are in the results section. CBC W/PLT COUNT & AUTO Routine 04/15/2019 4:03 R esults for DIFFERENTIAL PM MEDICINE WORKER this procedure are in the results section. PHOSPHORUS Routine 04/15/2019 4:03 Results for PM MEDICINE WORKER this procedure are in the results section. BASIC METABOLIC PANEL (7) Routine 04/15/2019 4:03 Results for PM MEDICINE WORKER this procedure are in the results section. TRANSFUSE LEUKO-REDUCED STAT 04/15/2019 2:21 RED BLOOD CELLS PM MEDICINE WORKER XR CHEST 1 VIEW STAT 04/15/2019 2:01 Results for PORTABLE/BEDSIDE PM MEDICINE WORKER this proced ure are in the results section. VENOUS DOPPLER ARM, LEFT CHRISSIE 04/15/2019 11:30 Results for AM MEDICINE WORKER this procedure are in the results section. THROMBOELASTOGRAPH (TEG) STAT 04/15/2019 11:28 Results for AM MEDICINE WORKER this procedure are in the results section. POCT-GLUCOSE METER Routine 04/15/2019 11:22 Resul ts for AM MEDICINE WORKER this procedure are in the results section. TRANSFUSE PLASMA Routine 04/15/2019 11:03 AM MEDICINE WORKER ECG 12-LEAD Routine 04/15/2019 10:36 AM MEDICINE WORKER Procedure Note - Interface, External Ris In - 04/15/2019 10:41 AM MEDICINE WORKER Ventricular Rate 51 BPM Atrial Rate 51 BPM QRS Duration 118 ms Q-T Interval 492 ms QTC Calculation(Bazett) 453 ms P [place] 63 degrees R [place] 23 degrees T [place] 5 degrees Sinus bradycardia Septal infarct , age undeter mined Abnormal ECG When compared with ECG of 12:19, Septal infarct is now Presen t Nonspecific T wave abnormali ty now evident in Lateral leads ECG 12-LEAD STAT 04/15/2019 10:36 AM Results for this MEDICINE WORKER procedure are i n the results section. ECG 12-LEAD Routine 04/15/2019 10:35 AM Results for this MEDICINE WORKER procedure are i n the results section. TRANSFUSE Routine 04/15/2019 9:22 AM CRYOPRECIPITATE MEDICINE WORKER CBC W/PLT COUNT & AUTO STAT 04/15/2019 8:52 AM Results for this DIFFERENTIAL MEDICINE WORKER procedure are i n the results section. CBC W/PLT COUNT & AUTO STAT 04/15/2019 8:52 AM Results for this DIFFERENTIAL MEDICINE WORKER procedure are i n the results section. TRANSFUSE LEUKO-REDUCED Routine 04/15/2019 7:56 AM RED BLOOD CELLS MEDICINE WORKER TRANSFUSE LEUKO-REDUCED Routine 04/15/2019 6:24 AM RED BLOOD CELLS MEDICINE WORKER XR CHEST 1 VIEW Routine 04/15/2019 4:38 AM Resul ts for this PORTABLE/BEDSIDE MEDICINE WORKER procedure a re in the results section. BLOOD GAS, ARTERIAL Routine 04/15/2019 4:07 AM R esults for this MEDICINE WORKER procedure are i n the results section. CBC W/PLT COUNT & AUTO Routine 04/15/2019 4:05 AM Results for this DIFFERENTIAL MEDICINE WORKER procedure are i n the results section. CBC W/PLT COUNT & AUTO Routine 04/15/2019 4:05 AM Results for this DIFFERENTIAL MEDICINE WORKER procedure are i n the results section. CALCIUM, IONIZED Routine 04/15/2019 4:05 AM Resu lts for this MEDICINE WORKER procedure are i n the results section. LACTIC ACID, ARTERIAL Routine 04/15/2019 4:05 AM Results for this MEDICINE WORKER procedure are i n the results section. PHOSPHORUS Routine 04/15/2019 4:05 AM Results for this MEDICINE WORKER procedure are i n the results section. BASIC METABOLIC PANEL Routine 04/15/2019 4:05 AM Results for this (7) MEDICINE WORKER procedure are i n the results section. MAGNESIUM Routine 04/15/2019 4:05 AM Results for this MEDICINE WORKER procedure are i n the results section. TRANSFUSE LEUKO-REDUCED Routine 04/15/2019 3:39 AM RED BLOOD CELLS MEDICINE WORKER TRANSFUSE LEUKO-REDUCED Routine 04/15/2019 2:17 AM RED BLOOD CELLS MEDICINE WORKER FIBRINOGEN Routine 04/15/2019 1:58 AM Results for this MEDICINE WORKER procedure are i n the results section. PT/APTT STAT 04/15/2019 1:58 AM Results for this MEDICINE WORKER procedure are i n the results section. APTT Routine 04/15/2019 1:58 AM Results for this MEDICINE WORKER procedure are i n the results section. PROTHROMBIN TIME/INR Routine 04/15/2019 1:58 AM Results for this MEDICINE WORKER procedure are i n the results section. POCT-GLUCOSE METER Routine 04/15/2019 12:23 AM Re sults for this MEDICINE WORKER procedure are i n the results section. CBC W/PLT COUNT & AUTO Routine 04/15/2019 12:07 AM Results for this DIFFERENTIAL MEDICINE WORKER procedure are i n the results section. CBC W/PLT COUNT & AUTO Routine 04/15/2019 12:07 AM Results for this DIFFERENTIAL MEDICINE WORKER procedure are i n the results section. CORTISOL Routine 04/15/2019 12:07 AM Results for this MEDICINE WORKER procedure are i n the results section. XR CHEST 1 VIEW STAT 04/14/2019 8:32 PM Resul ts for this PORTABLE/BEDSIDE MEDICINE WORKER procedure a re in the results section. BLOOD GAS, ARTERIAL STAT 04/14/2019 8:00 PM R esults for this MEDICINE WORKER procedure are i n the results section. CALCIUM, IONIZED Routine 04/14/2019 7:57 PM Resu lts for this MEDICINE WORKER procedure are i n the results section. PHOSPHORUS Routine 04/14/2019 7:57 PM Results for this MEDICINE WORKER procedure are i n the results section. MAGNESIUM Routine 04/14/2019 7:57 PM Results for this MEDICINE WORKER procedure are i n the results section. AFB CULTURE + SMEAR Routine 04/14/2019 6:48 PM R esults for this (NON-SPUTUM) MEDICINE WORKER procedure are i n the results section. FUNGUS CULTURE + SMEAR Routine 04/14/2019 6:48 PM Results for this MEDICINE WORKER procedure are i n the results section. SPIN/CONCENTRATION Routine 04/14/2019 6:48 PM Re sults for this CHARGE MEDICINE WORKER procedure are i n the results section. BRONCHIAL CULTURE + GRAM Routine 04/14/2019 6:48 PM Results for this STAIN MEDICINE WORKER procedure are i n the results section. HGB/HCT (H&H) - STAT LAB STAT 04/14/2019 5:49 PM Results for this MEDICINE WORKER procedure are i n the results section. GLUCOSE-STAT LAB STAT 04/14/2019 5:49 PM Resu lts for this MEDICINE WORKER procedure are i n the results section. POTASSIUM-STAT LAB STAT 04/14/2019 5:49 PM Re sults for this MEDICINE WORKER procedure are i n the results section. SODIUM NA-STAT LAB STAT 04/14/2019 5:49 PM Re sults for this MEDICINE WORKER procedure are i n the results section. BLOOD GAS, ARTERIAL STAT 04/14/2019 5:49 PM R esults for this MEDICINE WORKER procedure are i n the results section. CALCIUM, IONIZED STAT 04/14/2019 5:49 PM Resu lts for this MEDICINE WORKER procedure are i n the results section. RRL CRITICAL LABS STAT 04/14/2019 5:49 PM Res ults for this (ABG,NA,K,H&H,GLUCOSE) MEDICINE WORKER proce dure are in the results section. SURGICALLY OBTAINED Routine 04/14/2019 5:15 PM R esults for this CULTURE + GRAM STAIN MEDICINE WORKER procedu re are in the results section. FUNGUS CULTURE + SMEAR Routine 04/14/2019 5:15 PM Results for this MEDICINE WORKER procedure are i n the results section. ANAEROBIC CULTURE Routine 04/14/2019 5:15 PM Res ults for this MEDICINE WORKER procedure are i n the results section. AFB CULTURE + SMEAR Routine 04/14/2019 5:15 PM R esults for this (NON-SPUTUM) MEDICINE WORKER procedure are i n the results section. SURGICALLY OBTAINED Routine 04/14/2019 5:10 PM R esults for this CULTURE + GRAM STAIN MEDICINE WORKER procedu re are in the results section. FUNGUS CULTURE + SMEAR Routine 04/14/2019 5:10 PM Results for this MEDICINE WORKER procedure are i n the results section. ANAEROBIC CULTURE Routine 04/14/2019 5:10 PM Res ults for this MEDICINE WORKER procedure are i n the results section. AFB CULTURE + SMEAR Routine 04/14/2019 5:10 PM R esults for this (NON-SPUTUM) MEDICINE WORKER procedure are i n the results section. FUNGUS CULTURE + SMEAR Routine 04/14/2019 5:08 PM Results for this MEDICINE WORKER procedure are i n the results section. SURGICALLY OBTAINED Routine 04/14/2019 5:08 PM R esults for this CULTURE + GRAM STAIN MEDICINE WORKER procedu re are in the results section. ANAEROBIC CULTURE Routine 04/14/2019 5:08 PM Res ults for this MEDICINE WORKER procedure are i n the results section. AFB CULTURE + SMEAR Routine 04/14/2019 5:08 PM R esults for this (NON-SPUTUM) MEDICINE WORKER procedure are i n the results section. SURGICALLY OBTAINED Routine 04/14/2019 5:00 PM R esults for this CULTURE + GRAM STAIN MEDICINE WORKER procedu re are in the results section. FUNGUS CULTURE + SMEAR Routine 04/14/2019 5:00 PM Results for this MEDICINE WORKER procedure are i n the results section. ANAEROBIC CULTURE Routine 04/14/2019 5:00 PM Res ults for this MEDICINE WORKER procedure are i n the results section. AFB CULTURE + SMEAR Routine 04/14/2019 5:00 PM R esults for this (NON-SPUTUM) MEDICINE WORKER procedure are i n the results section. TISSUE EXAM AP Routine 04/14/2019 4:54 PM Results for this MEDICINE WORKER procedure are i n the results section. HGB/HCT (H&H) - STAT LAB STAT 04/14/2019 4:30 PM Results for this MEDICINE WORKER procedure are i n the results section. GLUCOSE-STAT LAB STAT 04/14/2019 4:30 PM Resu lts for this MEDICINE WORKER procedure are i n the results section. POTASSIUM-STAT LAB STAT 04/14/2019 4:30 PM Re sults for this MEDICINE WORKER procedure are i n the results section. SODIUM NA-STAT LAB STAT 04/14/2019 4:30 PM Re sults for this MEDICINE WORKER procedure are i n the results section. BLOOD GAS, ARTERIAL STAT 04/14/2019 4:30 PM R esults for this MEDICINE WORKER procedure are i n the results section. CALCIUM, IONIZED STAT 04/14/2019 4:30 PM Resu lts for this MEDICINE WORKER procedure are i n the results section. RRL CRITICAL LABS STAT 04/14/2019 4:30 PM Res ults for this (ABG,NA,K,H&H,GLUCOSE) MEDICINE WORKER proce dure are in the results section. CYTOLOGY AP Routine 04/14/2019 3:48 PM Results for this MEDICINE WORKER procedure are i n the results section. ANAEROBIC CULTURE Routine 04/14/2019 3:41 PM Res ults for this MEDICINE WORKER procedure are i n the results section. FUNGUS CULTURE + SMEAR Routine 04/14/2019 3:41 PM Results for this MEDICINE WORKER procedure are i n the results section. AFB CULTURE + SMEAR Routine 04/14/2019 3:41 PM R esults for this (NON-SPUTUM) MEDICINE WORKER procedure are i n the results section. SURGICALLY OBTAINED Routine 04/14/2019 3:41 PM R esults for this CULTURE + GRAM STAIN MEDICINE WORKER procedu re are in the results section. HGB/HCT (H&H) - STAT LAB STAT 04/14/2019 3:24 PM Results for this MEDICINE WORKER procedure are i n the results section. GLUCOSE-STAT LAB STAT 04/14/2019 3:24 PM Resu lts for this MEDICINE WORKER procedure are i n the results section. POTASSIUM-STAT LAB STAT 04/14/2019 3:24 PM Re sults for this MEDICINE WORKER procedure are i n the results section. SODIUM NA-STAT LAB STAT 04/14/2019 3:24 PM Re sults for this MEDICINE WORKER procedure are i n the results section. BLOOD GAS, ARTERIAL STAT 04/14/2019 3:24 PM R esults for this MEDICINE WORKER procedure are i n the results section. CALCIUM, IONIZED STAT 04/14/2019 3:24 PM Resu lts for this MEDICINE WORKER procedure are i n the results section. RRL CRITICAL LABS STAT 04/14/2019 3:24 PM Res ults for this (ABG,NA,K,H&H,GLUCOSE) MEDICINE WORKER proce dure are in the results section. BRONCHOSCOPY 04/14/2019 1:25 PM Empyema, right MEDICINE WORKER ([facility]) THORACOSCOPY 04/14/2019 1:25 PM Empyema, right (VATS),DECORTICATION MEDICINE WORKER (HCC) ECG 12-LEAD Routine 04/14/2019 12:19 PM MEDICINE WORKER Procedure Note - Interface, External Ris In - 04/14/2019 12:20 PM MEDICINE WORKER Ventricular Rate 45 BPM Atrial Rate 45 BPM P-R Interval 178 ms QRS Duration 118 ms Q-T Interval 542 ms QTC Calculation(Bazett) 468 ms P [place] 67 degrees R [place] 20 degrees T [place] -1 degrees Sinus bradycardia Left ventricular hypertrophy [...] STAT 04/14/2019 12:19 Results for this PM MEDICINE WORKER procedure are i n the results section. XR CHEST 1 VIEW Routine 04/14/2019 10:05 Results for this PORTABLE/BEDSIDE AM MEDICINE WORKER procedure a re in the results section. CBC W/PLT COUNT & AUTO Routine 04/14/2019 1:01 R esults for this DIFFERENTIAL AM MEDICINE WORKER procedure are i n the results section. TYPE AND SCREEN, Routine 04/14/2019 1:01 Results for this AUTOMATED AM MEDICINE WORKER procedure are i n the results section. COMPREHENSIVE Add-On 04/14/2019 1:01 Results fo r this METABOLIC PANEL AM MEDICINE WORKER procedure ar e in the results section. PROTHROMBIN TIME/INR Routine 04/14/2019 1:01 Res ults for this AM MEDICINE WORKER procedure are i n the results section. BASIC METABOLIC PANEL Routine 04/14/2019 1:01 Re sults for this (7) AM MEDICINE WORKER procedure are i n the results section. PHOSPHORUS Routine 04/14/2019 1:01 Results for this AM MEDICINE WORKER procedure are i n the results section. MAGNESIUM Routine 04/14/2019 1:01 Results for this AM MEDICINE WORKER procedure are i n the results section. CBC W/PLT COUNT & AUTO Routine 04/14/2019 1:01 R esults for this DIFFERENTIAL AM MEDICINE WORKER procedure are i n the results section. POCT-GLUCOSE METER Routine 04/13/2019 7:57 Resul ts for this PM MEDICINE WORKER procedure are i n the results section. POCT-GLUCOSE METER Routine 04/13/2019 5:17 Resul ts for this PM MEDICINE WORKER procedure are i n the results section. POCT-GLUCOSE METER Routine 04/13/2019 11:52 Resul ts for this AM MEDICINE WORKER procedure are i n the results section. XR CHEST 1 VIEW Routine 04/13/2019 8:26 Results for this PORTABLE/BEDSIDE AM MEDICINE WORKER procedure a re in the results section. POCT-GLUCOSE METER Routine 04/13/2019 5:58 Resul ts for this AM MEDICINE WORKER procedure are i n the results section. CBC W/PLT COUNT & AUTO Routine 04/13/2019 4:50 R esults for this DIFFERENTIAL AM MEDICINE WORKER procedure are i n the results section. CBC W/PLT COUNT & AUTO Routine 04/13/2019 4:50 R esults for this DIFFERENTIAL AM MEDICINE WORKER procedure are i n the results section. HEPATIC FUNCTION PANEL Routine 04/13/2019 4:39 R esults for this AM MEDICINE WORKER procedure are i n the results section. BASIC METABOLIC PANEL Routine 04/13/2019 4:39 Re sults for this (7) AM MEDICINE WORKER procedure are i n the results section. PHOSPHORUS Routine 04/13/2019 4:39 Results for this AM MEDICINE WORKER procedure are i n the results section. MAGNESIUM Routine 04/13/2019 4:39 Results for this AM MEDICINE WORKER procedure are i n the results section. APTT Routine 04/13/2019 4:29 Results for this AM MEDICINE WORKER procedure are i n the results section. POCT-GLUCOSE METER Routine 04/12/2019 5:20 Resul ts for this PM MEDICINE WORKER procedure are i n the results section. POCT-GLUCOSE METER Routine 04/12/2019 12:05 Resul ts for this PM MEDICINE WORKER procedure are i n the results section. XR CHEST 1 VIEW Routine 04/12/2019 6:43 Results for this PORTABLE/BEDSIDE AM MEDICINE WORKER procedure a re in the results section. POCT-GLUCOSE METER Routine 04/12/2019 5:21 Resul ts for this AM MEDICINE WORKER procedure are i n the results section. CBC W/PLT COUNT & AUTO Routine 04/12/2019 5:17 R esults for this DIFFERENTIAL AM MEDICINE WORKER procedure are i n the results section. BASIC METABOLIC PANEL Routine 04/12/2019 5:17 Re sults for this (7) AM MEDICINE WORKER procedure are i n the results section. PHOSPHORUS Routine 04/12/2019 5:17 Results for this AM MEDICINE WORKER procedure are i n the results section. MAGNESIUM Routine 04/12/2019 5:17 Results for this AM MEDICINE WORKER procedure are i n the results section. CBC W/PLT COUNT & AUTO Routine 04/12/2019 5:17 R esults for this DIFFERENTIAL AM MEDICINE WORKER procedure are i n the results section. POCT-GLUCOSE METER Routine 04/12/2019 12:04 Resul ts for this AM MEDICINE WORKER procedure are i n the results section. POCT-GLUCOSE METER Routine 04/11/2019 5:35 Resul ts for this PM MEDICINE WORKER procedure are i n the results section. XR CHEST 1 VIEW Routine 04/11/2019 1:04 Results for this PORTABLE/BEDSIDE PM MEDICINE WORKER procedure a re in the results section. POCT-GLUCOSE METER Routine 04/11/2019 12:09 Resul ts for this PM MEDICINE WORKER procedure are i n the results section. POCT-GLUCOSE METER Routine 04/11/2019 10:39 Resul ts for this AM MEDICINE WORKER procedure are i n the results section. REPORT OF PROCEDURE - 04/11/2019 10:15 ENDOSCOPY URL AM MEDICINE WORKER UPPER ENDOSCOPY,PEG 04/11/2019 9:00 Dysphagia, AM MEDICINE WORKER unspecified type POCT-GLUCOSE METER Routine 04/11/2019 7:01 Resul ts for this AM MEDICINE WORKER procedure are i n the results section. CBC W/PLT COUNT & AUTO Routine 04/11/2019 5:28 R esults for this DIFFERENTIAL AM MEDICINE WORKER procedure are i n the results section. PROTHROMBIN TIME/INR Routine 04/11/2019 5:28 Res ults for this AM MEDICINE WORKER procedure are i n the results section. BASIC METABOLIC PANEL Routine 04/11/2019 5:28 Re sults for this (7) AM MEDICINE WORKER procedure are i n the results section. PHOSPHORUS Routine 04/11/2019 5:28 Results for this AM MEDICINE WORKER procedure are i n the results section. MAGNESIUM Routine 04/11/2019 5:28 Results for this AM MEDICINE WORKER procedure are i n the results section. CBC W/PLT COUNT & AUTO Routine 04/11/2019 5:28 R esults for this DIFFERENTIAL AM MEDICINE WORKER procedure are i n the results section. POCT-GLUCOSE METER Routine 04/11/2019 12:16 Resul ts for this AM MEDICINE WORKER procedure are i n the results section. POCT-GLUCOSE METER Routine 04/10/2019 2:51 Resul ts for this PM MEDICINE WORKER procedure are i n the results section. XR CHEST 1 VIEW Routine 04/10/2019 9:16 Results for this PORTABLE/BEDSIDE AM MEDICINE WORKER procedure a re in the results section. CBC W/PLT COUNT & AUTO Routine 04/10/2019 4:41 R esults for this DIFFERENTIAL AM MEDICINE WORKER procedure are i n the results section. BASIC METABOLIC PANEL Routine 04/10/2019 4:41 Re sults for this (7) AM MEDICINE WORKER procedure are i n the results section. PHOSPHORUS Routine 04/10/2019 4:41 Results for this AM MEDICINE WORKER procedure are i n the results section. MAGNESIUM Routine 04/10/2019 4:41 Results for this AM MEDICINE WORKER procedure are i n the results section. CBC W/PLT COUNT & AUTO Routine 04/10/2019 4:41 R esults for this DIFFERENTIAL AM MEDICINE WORKER procedure are i n the results section. POCT-GLUCOSE METER Routine 04/10/2019 12:37 Resul ts for this AM MEDICINE WORKER procedure are i n the results section. POCT-GLUCOSE METER Routine 04/09/2019 5:19 Resul ts for this PM MEDICINE WORKER procedure are i n the results section. XR ESOPH SWALLOW Routine 04/09/2019 1:56 Results for this FUNCTION W/CINE VIDEO PM MEDICINE WORKER proced ure are in the results section. BODY FLUID CULTURE + CHRISSIE 04/09/2019 12:10 Res ults for this GRAM STAIN PM MEDICINE WORKER procedure are i n the results section. POCT-GLUCOSE METER Routine 04/09/2019 11:47 Resul ts for this AM MEDICINE WORKER procedure are i n the results section. POCT-GLUCOSE METER Routine 04/09/2019 9:21 Resul ts for this AM MEDICINE WORKER procedure are i n the results section. XR CHEST 1 VIEW Routine 04/09/2019 6:51 Results for this PORTABLE/BEDSIDE AM MEDICINE WORKER procedure a re in the results section. POCT-GLUCOSE METER Routine 04/09/2019 6:16 Resul ts for this AM MEDICINE WORKER procedure are i n the results section. CBC W/PLT COUNT & AUTO Routine 04/09/2019 5:32 R esults for this DIFFERENTIAL AM MEDICINE WORKER procedure are i n the results section. BASIC METABOLIC PANEL Routine 04/09/2019 5:32 Re sults for this (7) AM MEDICINE WORKER procedure are i n the results section. PHOSPHORUS Routine 04/09/2019 5:32 Results for this AM MEDICINE WORKER procedure are i n the results section. MAGNESIUM Routine 04/09/2019 5:32 Results for this AM MEDICINE WORKER procedure are i n the results section. CBC W/PLT COUNT & AUTO Routine 04/09/2019 5:32 R esults for this DIFFERENTIAL AM MEDICINE WORKER procedure are i n the results section. POCT-GLUCOSE METER Routine 04/09/2019 1:56 Resul ts for this AM MEDICINE WORKER procedure are i n the results section. POCT-GLUCOSE METER Routine 04/08/2019 5:45 Resul ts for this PM MEDICINE WORKER procedure are i n the results section. POCT-GLUCOSE METER Routine 04/08/2019 12:36 Resul ts for this PM MEDICINE WORKER procedure are i n the results section. XR CHEST 1 VIEW Routine 04/08/2019 6:25 Results for this PORTABLE/BEDSIDE AM MEDICINE WORKER procedure a re in the results section. POCT-GLUCOSE METER Routine 04/08/2019 5:17 Resul ts for this AM MEDICINE WORKER procedure are i n the results section. CBC W/PLT COUNT & AUTO Routine 04/08/2019 4:12 R esults for this DIFFERENTIAL AM MEDICINE WORKER procedure are i n the results section. BASIC METABOLIC PANEL Routine 04/08/2019 4:12 Re sults for this (7) AM MEDICINE WORKER procedure are i n the results section. PHOSPHORUS Routine 04/08/2019 4:12 Results for this AM MEDICINE WORKER procedure are i n the results section. MAGNESIUM Routine 04/08/2019 4:12 Results for this AM MEDICINE WORKER procedure are i n the results section. CBC W/PLT COUNT & AUTO Routine 04/08/2019 4:12 R esults for this DIFFERENTIAL AM MEDICINE WORKER procedure are i n the results section. POCT-GLUCOSE METER Routine 04/08/2019 12:22 Resul ts for this AM MEDICINE WORKER procedure are i n the results section. BASIC METABOLIC PANEL Routine 04/07/2019 6:08 Re sults for this (7) PM MEDICINE WORKER procedure are i n the results section. POCT-GLUCOSE METER Routine 04/07/2019 5:36 Resul ts for this PM MEDICINE WORKER procedure are i n the results section. POCT-GLUCOSE METER Routine 04/07/2019 11:35 Resul ts for this AM MEDICINE WORKER procedure are i n the results section. XR CHEST 1 VIEW STAT 04/07/2019 11:21 Results for this PORTABLE/BEDSIDE AM MEDICINE WORKER procedure a re in the results section. XR CHEST 1 VIEW Routine 04/07/2019 9:52 Results for this PORTABLE/BEDSIDE AM MEDICINE WORKER procedure a re in the results section. POCT-GLUCOSE METER Routine 04/07/2019 6:38 Resul ts for this AM MEDICINE WORKER procedure are i n the results section. CBC W/PLT COUNT & AUTO Routine 04/07/2019 6:07 R esults for this DIFFERENTIAL AM MEDICINE WORKER procedure are i n the results section. BASIC METABOLIC PANEL Routine 04/07/2019 6:07 Re sults for this (7) AM MEDICINE WORKER procedure are i n the results section. PHOSPHORUS Routine 04/07/2019 6:07 Results for this AM MEDICINE WORKER procedure are i n the results section. MAGNESIUM Routine 04/07/2019 6:07 Results for this AM MEDICINE WORKER procedure are i n the results section. CBC W/PLT COUNT & AUTO Routine 04/07/2019 6:07 R esults for this DIFFERENTIAL AM MEDICINE WORKER procedure are i n the results section. POCT-GLUCOSE METER Routine 04/06/2019 11:48 Resul ts for this PM MEDICINE WORKER procedure are i n the results section. POCT-GLUCOSE METER Routine 04/06/2019 5:17 Resul ts for this PM MEDICINE WORKER procedure are i n the results section. BASIC METABOLIC PANEL Routine 04/06/2019 4:40 Re sults for this (7) PM MEDICINE WORKER procedure are i n the results section. POCT-GLUCOSE METER Routine 04/06/2019 12:37 Resul ts for this PM MEDICINE WORKER procedure are i n the results section. XR CHEST 1 VIEW Routine 04/06/2019 6:49 Results for this PORTABLE/BEDSIDE AM MEDICINE WORKER procedure a re in the results section. CBC W/PLT COUNT & AUTO Routine 04/06/2019 6:33 R esults for this DIFFERENTIAL AM MEDICINE WORKER procedure are i n the results section. BASIC METABOLIC PANEL Routine 04/06/2019 6:33 Re sults for this (7) AM MEDICINE WORKER procedure are i n the results section. PHOSPHORUS Routine 04/06/2019 6:33 Results for this AM MEDICINE WORKER procedure are i n the results section. MAGNESIUM Routine 04/06/2019 6:33 Results for this AM MEDICINE WORKER procedure are i n the results section. CBC W/PLT COUNT & AUTO Routine 04/06/2019 6:33 R esults for this DIFFERENTIAL AM MEDICINE WORKER procedure are i n the results section. POCT-GLUCOSE METER Routine 04/06/2019 5:15 Resul ts for this AM MEDICINE WORKER procedure are i n the results section. BASIC METABOLIC PANEL Routine 04/05/2019 4:43 Re sults for this (7) PM MEDICINE WORKER procedure are i n the results section. POCT-GLUCOSE METER Routine 04/05/2019 11:21 Resul ts for this AM MEDICINE WORKER procedure are i n the results section. CBC W/PLT COUNT & AUTO Routine 04/05/2019 4:50 R esults for this DIFFERENTIAL AM MEDICINE WORKER procedure are i n the results section. BASIC METABOLIC PANEL Routine 04/05/2019 4:50 Re sults for this (7) AM MEDICINE WORKER procedure are i n the results section. PHOSPHORUS Routine 04/05/2019 4:50 Results for this AM MEDICINE WORKER procedure are i n the results section. MAGNESIUM Routine 04/05/2019 4:50 Results for this AM MEDICINE WORKER procedure are i n the results section. CBC W/PLT COUNT & AUTO Routine 04/05/2019 4:50 R esults for this DIFFERENTIAL AM MEDICINE WORKER procedure are i n the results section. XR CHEST 1 VIEW Routine 04/05/2019 1:58 Results for this PORTABLE/BEDSIDE AM MEDICINE WORKER procedure a re in the results section. POCT-GLUCOSE METER Routine 04/04/2019 11:42 Resul ts for this PM MEDICINE WORKER procedure are i n the results section. POCT-GLUCOSE METER Routine 04/04/2019 5:43 Resul ts for this PM MEDICINE WORKER procedure are i n the results section. BASIC METABOLIC PANEL Routine 04/04/2019 4:28 Re sults for this (7) PM MEDICINE WORKER procedure are i n the results section. XR ABDOMEN / KUB 1 STAT 04/04/2019 3:58 Resul ts for this VIEW PM MEDICINE WORKER procedure are i n the results section. XR ABDOMEN / KUB 1 STAT 04/04/2019 3:39 Resul ts for this VIEW PM MEDICINE WORKER procedure are i n the results section. POCT-GLUCOSE METER Routine 04/04/2019 12:09 Resul ts for this PM MEDICINE WORKER procedure are i n the results section. XR CHEST 1 VIEW STAT 04/04/2019 8:30 Results for this PORTABLE/BEDSIDE AM MEDICINE WORKER procedure a re in the results section. POCT-GLUCOSE METER Routine 04/04/2019 5:29 Resul ts for this AM MEDICINE WORKER procedure are i n the results section. CBC W/PLT COUNT & AUTO Routine 04/04/2019 4:42 R esults for this DIFFERENTIAL AM MEDICINE WORKER procedure are i n the results section. BASIC METABOLIC PANEL Routine 04/04/2019 4:42 Re sults for this (7) AM MEDICINE WORKER procedure are i n the results section. PHOSPHORUS Routine 04/04/2019 4:42 Results for this AM MEDICINE WORKER procedure are i n the results section. MAGNESIUM Routine 04/04/2019 4:42 Results for this AM MEDICINE WORKER procedure are i n the results section. CBC W/PLT COUNT & AUTO Routine 04/04/2019 4:42 R esults for this DIFFERENTIAL AM MEDICINE WORKER procedure are i n the results section. POCT-GLUCOSE METER Routine 04/03/2019 11:54 Resul ts for this PM MEDICINE WORKER procedure are i n the results section. POCT-GLUCOSE METER Routine 04/03/2019 5:02 Resul ts for this PM MEDICINE WORKER procedure are i n the results section. MAGNESIUM Add-On 04/03/2019 3:27 Results for this PM MEDICINE WORKER procedure are i n the results section. BASIC METABOLIC PANEL Routine 04/03/2019 3:27 Re sults for this (7) PM MEDICINE WORKER procedure are i n the results section. POCT-GLUCOSE METER Routine 04/03/2019 12:07 Resul ts for this PM MEDICINE WORKER procedure are i n the results section. POCT-GLUCOSE METER Routine 04/03/2019 5:53 Resul ts for this AM MEDICINE WORKER procedure are i n the results section. XR CHEST 1 VIEW CHRISSIE 04/03/2019 5:14 Results for this PORTABLE/BEDSIDE AM MEDICINE WORKER procedure a re in the results section. CBC W/PLT COUNT & AUTO Routine 04/03/2019 2:13 R esults for this DIFFERENTIAL AM MEDICINE WORKER procedure are i n the results section. BASIC METABOLIC PANEL Routine 04/03/2019 2:13 Re sults for this (7) AM MEDICINE WORKER procedure are i n the results section. PHOSPHORUS Routine 04/03/2019 2:13 Results for this AM MEDICINE WORKER procedure are i n the results section. MAGNESIUM Routine 04/03/2019 2:13 Results for this AM MEDICINE WORKER procedure are i n the results section. CBC W/PLT COUNT & AUTO Routine 04/03/2019 2:13 R esults for this DIFFERENTIAL AM MEDICINE WORKER procedure are i n the results section. POCT-GLUCOSE METER Routine 04/02/2019 11:54 Resul ts for this PM MEDICINE WORKER procedure are i n the results section. APTT Routine 04/02/2019 10:44 Results for this PM MEDICINE WORKER procedure are i n the results section. POCT-GLUCOSE METER Routine 04/02/2019 5:26 Resul ts for this PM MEDICINE WORKER procedure are i n the results section. APTT Routine 04/02/2019 4:42 Results for this PM MEDICINE WORKER procedure are i n the results section. BASIC METABOLIC PANEL Routine 04/02/2019 4:42 Re sults for this (7) PM MEDICINE WORKER procedure are i n the results section. POCT-GLUCOSE METER Routine 04/02/2019 12:20 Resul ts for this PM MEDICINE WORKER procedure are i n the results section. APTT Routine 04/02/2019 8:12 Results for this AM MEDICINE WORKER procedure are i n the results section. XR CHEST 1 VIEW Routine 04/02/2019 6:02 Results for this PORTABLE/BEDSIDE AM MEDICINE WORKER procedure a re in the results section. POCT-GLUCOSE METER Routine 04/02/2019 5:34 Resul ts for this AM MEDICINE WORKER procedure are i n the results section. APTT Routine 04/02/2019 1:20 Results for this AM [employer] WORK[employer] procedure are i n the results section. BLOOD GAS, ARTERIAL Routine 04/02/2019 1:19 Resu lts for this AM [employer] WORKER procedure are i n the results section. CBC W/PLT COUNT & AUTO Routine 04/02/2019 1:18 R esults for this DIFFERENTIAL AM [employer] WORKER procedure are i n the results section. BASIC METABOLIC PANEL Routine 04/02/2019 1:18 Re sults for this (7) AM [employer]INE WORKER procedure are i n the results section. PHOSPHORUS Routine 04/02/2019 1:18 Results for this AM [employer]ICINE WORKER procedure are i n the results section. MAGNESIUM Routine 04/02/2019 1:18 Results for this AM [employer] WORKER procedure are i n the results section. CBC W/PLT COUNT & AUTO Routine 04/02/2019 1:18 R esults for this DIFFERENTIAL AM [employer] WORKER procedure are i n the results section. POCT-GLUCOSE METER Routine 04/01/2019 11:48 Resul ts for this PM [employer]ICINE WORKER procedure are i n the results section. BASIC METABOLIC PANEL Routine 04/01/2019 7:06 Re sults for this (7) PM [employer] WORKER procedure are i n the results section. APTT Routine 04/01/2019 6:47 Results for this PM [employer]ICINE WORKER procedure are i n the results section. POCT-GLUCOSE METER Routine 04/01/2019 5:51 Resul ts for this PM [employer]ICINE WORKER procedure are i n the results section. POCT-GLUCOSE METER Routine 04/01/2019 11:41 Resul ts for this AM [employer] WORKER procedure are i n the results section. APTT Routine 04/01/2019 11:07 Results for this AM [employer]IC[employer] WORKER procedure are i n the results section. POCT-GLUCOSE METER Routine 04/01/2019 6:26 Resul ts for this AM MEDIC[employer] WORKER procedure are i n the results section. XR CHEST 1 VIEW Routine 04/01/2019 5:07 Results for this PORTABLE/BEDSIDE AM MEDICINE WORKER procedure a re in the results section. BLOOD GAS, ARTERIAL Routine 04/01/2019 3:25 Resu lts for this AM MEDIC[employer] WORKER procedure are i n the results section. CBC W/PLT COUNT & AUTO Routine 04/01/2019 3:23 R esults for this DIFFERENTIAL AM [employer] WORKER procedure are i n the results section. APTT Routine 04/01/2019 3:23 Results for this AM [employer]IC[employer] WORKER procedure are i n the results section. BASIC METABOLIC PANEL Routine 04/01/2019 3:23 Re sults for this (7) AM [employer] WORK[employer] procedure are i n the results section. PHOSPHORUS Routine 04/01/2019 3:23 Results for this AM MEDICINE WORKER procedure are i n the results section. MAGNESIUM Routine 04/01/2019 3:23 Results for this AM MEDIC[employer] WORKER procedure are i n the results section. CBC W/PLT COUNT & AUTO Routine 04/01/2019 3:23 R esults for this DIFFERENTIAL AM [employer]IC[employer] WORKER procedure are i n the results section. POCT-GLUCOSE METER Routine 03/31/2019 11:51 Resul ts for this PM [employer]IC[employer] WORKER procedure are i n the results section. APTT Routine 03/31/2019 10:13 Results for this PM MEDICINE WORKER procedure are i n the results section. APTT Routine 03/31/2019 7:52 Results for this PM MEDICINE WORKER procedure are i n the results section. POCT-GLUCOSE METER Routine 03/31/2019 6:08 Resul ts for this PM MEDICINE WORKER procedure are i n the results section. APTT Routine 03/31/2019 1:59 Results for this PM MEDICINE WORKER procedure are i n the results section. BASIC METABOLIC PANEL Routine 03/31/2019 1:59 Re sults for this (7) PM [employer] WORK[employer] procedure are i n the results section. LACTIC ACID, VENOUS Routine 03/31/2019 1:59 Resu lts for this PM [employer]ICINE WORKER procedure are i n the results section. PHOSPHORUS STAT 03/31/2019 1:59 Results for this PM MEDICINE WORKER procedure are i n the results section. MAGNESIUM STAT 03/31/2019 1:59 Results for this PM MEDICINE WORKER procedure are i n the results section. PT/APTT STAT 03/31/2019 1:59 Results for this PM MEDICINE WORKER procedure are i n the results section. COMPREHENSIVE STAT 03/31/2019 1:59 Results fo r this METABOLIC PANEL PM [employer]ICINE WORKER procedure ar e in the results section. TROPONIN I STAT 03/31/2019 1:59 Results for this PM MEDICINE WORKER procedure are i n the results section. POCT-GLUCOSE METER Routine 03/31/2019 11:50 Resul ts for this AM [employer] WORK[employer] procedure are i n the results section. XR ABDOMEN / KUB 1 STAT 03/31/2019 11:33 Resul ts for this VIEW AM [employer] WORK[employer] procedure are i n the results section. TROPONIN I Routine 03/31/2019 9:12 Results for this AM MEDICINE WORKER procedure are i n the results section. APTT Routine 03/31/2019 6:42 Results for this AM MEDIC[employer] WORKER procedure are i n the results section. BLOOD GAS, ARTERIAL Routine 03/31/2019 6:42 Resu lts for this AM MEDICINE WORKER procedure are i n the results section. POCT-GLUCOSE METER Routine 03/31/2019 5:40 Resul ts for this AM MEDICINE WORKER procedure are i n the results section. XR CHEST 1 VIEW Routine 03/31/2019 5:29 Results for this PORTABLE/BEDSIDE AM MEDICINE WORKER procedure a re in the results section. APTT Routine 03/31/2019 4:20 Results for this AM MEDICINE WORKER procedure are i n the results section. BLOOD GAS, ARTERIAL Routine 03/31/2019 3:52 Resu lts for this AM MEDIC[employer] WORKER procedure are i n the results section. CBC W/PLT COUNT & AUTO Routine 03/31/2019 3:51 R esults for this DIFFERENTIAL AM [employer]IC[employer] WORKER procedure are i n the results section. BASIC METABOLIC PANEL Routine 03/31/2019 3:51 Re sults for this (7) AM MEDIC[employer] WORKER procedure are i n the results section. PHOSPHORUS Routine 03/31/2019 3:51 Results for this AM MEDICINE WORKER procedure are i n the results section. MAGNESIUM Routine 03/31/2019 3:51 Results for this AM MEDICINE WORKER procedure are i n the results section. CBC W/PLT COUNT & AUTO Routine 03/31/2019 3:51 R esults for this DIFFERENTIAL AM [employer]IC[employer] WORKER procedure are i n the results section. LACTIC ACID, VENOUS STAT 03/31/2019 3:51 Resu lts for this AM MEDICINE WORKER procedure are i n the results section. TROPONIN I Routine 03/31/2019 1:30 Results for this AM [employer]IC[employer] WORKER procedure are i n the results section. LACTIC ACID, VENOUS Routine 03/31/2019 1:30 Resu lts for this AM MEDIC[employer] WORKER procedure are i n the results section. B-TYPE NATRIURETIC STAT 03/31/2019 1:30 Resul ts for this FACTOR (BNP) AM [employer]ICINE WORKER procedure are i n the results section. POCT-GLUCOSE METER Routine 03/31/2019 12:17 Resul ts for this AM MEDIC[employer] WORKER procedure are i n the results section. CT BRAIN WITHOUT IV Routine 03/30/2019 11:54 Resu lts for this CONTRAST PM [employer]ICINE WORKER procedure are i n the results section. CT CHEST PE TEST Routine 03/30/2019 11:54 Results for this DESIGN PM [employer]ICINE WORKER procedure are i n the results section. POCT-HEMOGLOBIN Routine 03/30/2019 8:53 Results for this PM MEDICINE WORKER procedure are i n the results section. POCT-HEMATOCRIT Routine 03/30/2019 8:53 Results for this PM MEDICINE WORKER procedure are i n the results section. POCT-CALCIUM IONIZED Routine 03/30/2019 8:53 Res ults for this PM MEDICINE WORKER procedure are i n the results section. POCT-GLUCOSE Routine 03/30/2019 8:53 Results for this PM MEDICINE WORKER procedure are i n the results section. POCT-POTASSIUM Routine 03/30/2019 8:53 Results f or this PM MEDICINE WORKER procedure are i n the results section. POCT-SODIUM Routine 03/30/2019 8:53 Results for this PM MEDICINE WORKER procedure are i n the results section. POCT-BLOOD GASES, Routine 03/30/2019 8:53 Result s for this ARTERIAL PM [employer]IC[employer] WORKER procedure are i n the results section. CBC W/PLT COUNT & AUTO STAT 03/30/2019 8:44 R esults for this DIFFERENTIAL PM [employer]ICINE WORKER procedure are i n the results section. LACTIC ACID, VENOUS Routine 03/30/2019 8:44 Resu lts for this PM MEDICINE WORKER procedure are i n the results section. PHOSPHORUS STAT 03/30/2019 8:44 Results for this PM MEDICINE WORKER procedure are i n the results section. MAGNESIUM STAT 03/30/2019 8:44 Results for this PM MEDICINE WORKER procedure are i n the results section. TROPONIN I STAT 03/30/2019 8:44 Results for this PM MEDICINE WORKER procedure are i n the results section. COMPREHENSIVE STAT 03/30/2019 8:44 Results fo r this METABOLIC PANEL PM [employer]IC[employer] WORKER procedure ar e in the results section. CBC W/PLT COUNT & AUTO STAT 03/30/2019 8:44 R esults for this DIFFERENTIAL PM MEDICINE WORKER procedure are i n the results section. XR CHEST 1 VIEW STAT 03/30/2019 8:34 Results for this PORTABLE/BEDSIDE PM MEDICINE WORKER procedure a re in the results section. APTT Routine 03/30/2019 5:57 Results for this PM MEDICINE WORKER procedure are i n the results section. POCT-GLUCOSE METER Routine 03/30/2019 5:54 Resul ts for this PM MEDICINE WORKER procedure are i n the results section. BASIC METABOLIC PANEL Routine 03/30/2019 3:46 Re sults for this (7) PM MEDICINE WORKER procedure are i n the results section. APTT Routine 03/30/2019 12:08 Results for this PM MEDICINE WORKER procedure are i n the results section. POCT-GLUCOSE METER Routine 03/30/2019 11:49 Resul ts for this AM MEDIC[employer] WORKER procedure are i n the results section. XR CHEST 1 VIEW Routine 03/30/2019 7:47 Results for this PORTABLE/BEDSIDE AM MEDICINE WORKER procedure a re in the results section. APTT Routine 03/30/2019 6:32 Results for this AM MEDICINE WORKER procedure are i n the results section. POCT-GLUCOSE METER Routine 03/30/2019 5:55 Resul ts for this AM MEDICINE WORKER procedure are i n the results section. CBC W/PLT COUNT & AUTO Routine 03/30/2019 4:31 R esults for this DIFFERENTIAL AM MEDICINE WORKER procedure are i n the results section. APTT Routine 03/30/2019 4:31 Results for this AM MEDICINE WORKER procedure are i n the results section. BASIC METABOLIC PANEL Routine 03/30/2019 4:31 Re sults for this (7) AM MEDICINE WORKER procedure are i n the results section. PHOSPHORUS Routine 03/30/2019 4:31 Results for this AM MEDICINE WORKER procedure are i n the results section. MAGNESIUM Routine 03/30/2019 4:31 Results for this AM MEDICINE WORKER procedure are i n the results section. CBC W/PLT COUNT & AUTO Routine 03/30/2019 4:31 R esults for this DIFFERENTIAL AM MEDICINE WORKER procedure are i n the results section. POCT-GLUCOSE METER Routine 03/30/2019 12:16 Resul ts for this AM MEDICINE WORKER procedure are i n the results section. POCT-GLUCOSE METER Routine 03/29/2019 6:14 Resul ts for this PM MEDICINE WORKER procedure are i n the results section. BASIC METABOLIC PANEL Routine 03/29/2019 12:20 Re sults for this (7) PM MEDICINE WORKER procedure are i n the results section. POCT-GLUCOSE METER Routine 03/29/2019 12:18 Resul ts for this PM MEDICINE WORKER procedure are i n the results section. POCT-GLUCOSE METER Routine 03/29/2019 6:00 Resul ts for this AM MEDICINE WORKER procedure are i n the results section. XR CHEST 1 VIEW Routine 03/29/2019 4:42 Results for this PORTABLE/BEDSIDE AM MEDICINE WORKER procedure a re in the results section. APTT Routine 03/29/2019 3:33 Results for this AM MEDICINE WORKER procedure are i n the results section. CBC W/PLT COUNT & AUTO Routine 03/29/2019 3:30 R esults for this DIFFERENTIAL AM MEDICINE WORKER procedure are i n the results section. BASIC METABOLIC PANEL Routine 03/29/2019 3:30 Re sults for this (7) AM MEDICINE WORKER procedure are i n the results section. PHOSPHORUS Routine 03/29/2019 3:30 Results for this AM MEDICINE WORKER procedure are i n the results section. MAGNESIUM Routine 03/29/2019 3:30 Results for this AM MEDICINE WORKER procedure are i n the results section. CBC W/PLT COUNT & AUTO Routine 03/29/2019 3:30 R esults for this DIFFERENTIAL AM MEDICINE WORKER procedure are i n the results section. POCT-GLUCOSE METER Routine 03/29/2019 12:23 Resul ts for this AM MEDICINE WORKER procedure are i n the results section. APTT Routine 03/28/2019 8:25 Results for this PM MEDICINE WORKER procedure are i n the results section. VANCOMYCIN LEVEL, Timed 03/28/2019 8:25 Result s for this TROUGH PM MEDIC[employer] WORKER procedure are i n the results section. POCT-GLUCOSE METER Routine 03/28/2019 5:33 Resul ts for this PM MEDICINE WORKER procedure are i n the results section. BASIC METABOLIC PANEL Routine 03/28/2019 4:03 Re sults for this (7) PM MEDICINE WORKER procedure are i n the results section. APTT Routine 03/28/2019 2:03 Results for this PM MEDICINE WORKER procedure are i n the results section. POCT-GLUCOSE METER Routine 03/28/2019 12:26 Resul ts for this PM MEDICINE WORKER procedure are i n the results section. CYTOLOGY AP Routine 03/28/2019 8:03 Results for this AM MEDICINE WORKER procedure are i n the results section. APTT Routine 03/28/2019 6:30 Results for this AM MEDICINE WORKER procedure are i n the results section. CBC W/PLT COUNT & AUTO Routine 03/28/2019 4:21 R esults for this DIFFERENTIAL AM MEDICINE WORKER procedure are i n the results section. APTT Routine 03/28/2019 4:21 Results for this AM MEDICINE WORKER procedure are i n the results section. BASIC METABOLIC PANEL Routine 03/28/2019 4:21 Re sults for this (7) AM MEDICINE WORKER procedure are i n the results section. PHOSPHORUS Routine 03/28/2019 4:21 Results for this AM MEDICINE WORKER procedure are i n the results section. MAGNESIUM Routine 03/28/2019 4:21 Results for this AM MEDICINE WORKER procedure are i n the results section. CBC W/PLT COUNT & AUTO Routine 03/28/2019 4:21 R esults for this DIFFERENTIAL AM MEDICINE WORKER procedure are i n the results section. XR CHEST 1 VIEW Routine 03/28/2019 3:24 Results for this PORTABLE/BEDSIDE AM MEDICINE WORKER procedure a re in the results section. POCT-GLUCOSE METER Routine 03/28/2019 12:13 Resul ts for this AM MEDICINE WORKER procedure are i n the results section. POCT-GLUCOSE METER Routine 03/27/2019 5:40 Resul ts for this PM MEDICINE WORKER procedure are i n the results section. BASIC METABOLIC PANEL Routine 03/27/2019 4:05 Re sults for this (7) PM MEDIC[employer] WORKER procedure are i n the results section. APTT Routine 03/27/2019 12:05 Results for this PM MEDICINE WORKER procedure are i n the results section. POCT-GLUCOSE METER Routine 03/27/2019 11:31 Resul ts for this AM MEDICINE WORKER procedure are i n the results section. APTT Routine 03/27/2019 5:34 Results for this AM MEDICINE WORKER procedure are i n the results section. POCT-GLUCOSE METER Routine 03/27/2019 5:05 Resul ts for this AM MEDICINE WORKER procedure are i n the results section. CBC W/PLT COUNT & AUTO Routine 03/27/2019 4:32 R esults for this DIFFERENTIAL AM MEDICINE WORKER procedure are i n the results section. BASIC METABOLIC PANEL Routine 03/27/2019 4:32 Re sults for this (7) AM MEDICINE WORKER procedure are i n the results section. PHOSPHORUS Routine 03/27/2019 4:32 Results for this AM MEDICINE WORKER procedure are i n the results section. MAGNESIUM Routine 03/27/2019 4:32 Results for this AM MEDICINE WORKER procedure are i n the results section. CBC W/PLT COUNT & AUTO Routine 03/27/2019 4:32 R esults for this DIFFERENTIAL AM MEDIC[employer] WORKER procedure are i n the results section. XR CHEST 1 VIEW Routine 03/27/2019 3:54 Results for this PORTABLE/BEDSIDE AM MEDICINE WORKER procedure a re in the results section. ECHOCARDIOGRAM REPORT 03/26/2019 9:11 - SCAN PM MEDICINE WORKER APTT Routine 03/26/2019 8:13 Results for this PM MEDICINE WORKER procedure are i n the results section. IR DRAINAGE CATHETER CHRISSIE 03/26/2019 7:30 Res ults for this CHANGE PM [employer]IC[employer] WORKER procedure are i n the results section. POCT-GLUCOSE METER Routine 03/26/2019 6:20 Resul ts for this PM MEDICINE WORKER procedure are i n the results section. BASIC METABOLIC PANEL Routine 03/26/2019 5:33 Re sults for this (7) PM MEDIC[employer] WORKER procedure are i n the results section. APTT Routine 03/26/2019 12:53 Results for this PM MEDICINE WORKER procedure are i n the results section. POCT-GLUCOSE METER Routine 03/26/2019 11:54 Resul ts for this AM MEDICINE WORKER procedure are i n the results section. APTT Routine 03/26/2019 10:27 Results for this AM MEDICINE WORKER procedure are i n the results section. POCT-GLUCOSE METER Routine 03/26/2019 6:42 Resul ts for this AM MEDICINE WORKER procedure are i n the results section. XR CHEST 1 VIEW Routine 03/26/2019 3:58 Results for this PORTABLE/BEDSIDE AM [employer]IC[employer] WORKER procedure a re in the results section. BLOOD GAS, ARTERIAL Routine 03/26/2019 3:08 Resu lts for this AM MEDICINE WORKER procedure are i n the results section. CBC W/PLT COUNT & AUTO Routine 03/26/2019 3:00 R esults for this DIFFERENTIAL AM [employer]ICINE WORKER procedure are i n the results section. APTT Routine 03/26/2019 3:00 Results for this AM MEDICINE WORKER procedure are i n the results section. BASIC METABOLIC PANEL Routine 03/26/2019 3:00 Re sults for this (7) AM MEDICINE WORKER procedure are i n the results section. PHOSPHORUS Routine 03/26/2019 3:00 Results for this AM MEDICINE WORKER procedure are i n the results section. MAGNESIUM Routine 03/26/2019 3:00 Results for this AM MEDICINE WORKER procedure are i n the results section. CBC W/PLT COUNT & AUTO Routine 03/26/2019 3:00 R esults for this DIFFERENTIAL AM MEDICINE WORKER procedure are i n the results section. POCT-GLUCOSE METER Routine 03/26/2019 12:02 Resul ts for this AM MEDICINE WORKER procedure are i n the results section. BASIC METABOLIC PANEL Routine 03/25/2019 8:05 Re sults for this (7) PM [employer]IC[employer] WORKER procedure are i n the results section. 2D ECHO W/ DOPPLER STAT 03/25/2019 7:04 Resul ts for this (CW/PW/COLOR) PM [employer]IC[employer] WORKER procedure are in the results section. POCT-GLUCOSE METER Routine 03/25/2019 6:10 Resul ts for this PM [employer]ICINE WORKER procedure are i n the results section. CT ABDOMEN/PELVIS STAT 03/25/2019 6:00 Result s for this WITHOUT IV CONTRAST PM [employer]ICINE WORKER procedur e are in the results section. CT CHEST WITHOUT IV STAT 03/25/2019 6:00 Resu lts for this CONTRAST PM [employer] WORK[employer] procedure are i n the results section. XR CHEST 1 VIEW STAT 03/25/2019 4:10 Results for this PORTABLE/BEDSIDE PM [employer]IC[employer] WORKER procedure a re in the results section. APTT Routine 03/25/2019 3:30 Results for this PM MEDIC[employer] WORKER procedure are i n the results section. BASIC METABOLIC PANEL Routine 03/25/2019 11:46 Re sults for this (7) AM MEDIC[employer] WORKER procedure are i n the results section. BLOOD GAS, ARTERIAL Routine 03/25/2019 11:43 Resu lts for this AM MEDIC[employer] WORKER procedure are i n the results section. POCT-GLUCOSE METER Routine 03/25/2019 11:40 Resul ts for this AM MEDIC[employer] WORKER procedure are i n the results section. APTT Routine 03/25/2019 9:33 Results for this AM MEDICINE WORKER procedure are i n the results section. BLOOD CULTURE Routine 03/25/2019 9:32 Results fo r this AM [employer]IC[employer] WORKER procedure are i n the results section. BLOOD CULTURE Routine 03/25/2019 9:32 Results fo r this AM MEDIC[employer] WORKER procedure are i n the results section. URINALYSIS W/ REFLEX Routine 03/25/2019 9:08 Res ults for this URINE CULTURE AM [employer] WORKER procedure are in the results section. URINE CULTURE Routine 03/25/2019 9:08 Results fo r this AM MEDIC[employer] WORKER procedure are i n the results section. SPUTUM CULTURE + GRAM Routine 03/25/2019 9:08 Re sults for this STAIN AM [employer]IC[employer] WORKER procedure are i n the results section. ECG 12-LEAD STAT 03/25/2019 8:09 Results for this AM MEDIC[employer] WORKER procedure are i n the results section. POCT-GLUCOSE METER Routine 03/25/2019 6:06 Resul ts for this AM MEDIC[employer] WORKER procedure are i n the results section. XR CHEST 1 VIEW Routine 03/25/2019 4:03 Results for this PORTABLE/BEDSIDE AM MEDIC[employer] WORKER procedure a re in the results section. BASIC METABOLIC PANEL Routine 03/25/2019 3:30 Re sults for this (7) AM MEDICINE WORKER procedure are i n the results section. PHOSPHORUS Routine 03/25/2019 3:30 Results for this AM MEDICINE WORKER procedure are i n the results section. MAGNESIUM Routine 03/25/2019 3:30 Results for this AM MEDICINE WORKER procedure are i n the results section. CBC W/PLT COUNT & AUTO Routine 03/25/2019 3:09 R esults for this DIFFERENTIAL AM [employer]IC[employer] WORKER procedure are i n the results section. APTT Routine 03/25/2019 3:09 Results for this AM MEDICINE WORKER procedure are i n the results section. CBC W/PLT COUNT & AUTO Routine 03/25/2019 3:09 R esults for this DIFFERENTIAL AM MEDIC[employer] WORKER procedure are i n the results section. POCT-GLUCOSE METER Routine 03/25/2019 12:01 Resul ts for this AM MEDIC[employer] WORKER procedure are i n the results section. APTT Routine 03/24/2019 8:31 Results for this PM [employer]IC[employer] WORKER procedure are i n the results section. BASIC METABOLIC PANEL Routine 03/24/2019 8:31 Re sults for this (7) PM MEDIC[employer] WORKER procedure are i n the results section. POCT-GLUCOSE METER Routine 03/24/2019 6:07 Resul ts for this PM MEDICINE WORKER procedure are i n the results section. XR ABDOMEN / KUB 1 STAT 03/24/2019 5:12 Resul ts for this VIEW [employer]IC[employer] WORK[employer] procedure are i n the results section. XR CHEST 1 VIEW STAT 03/24/2019 5:12 Results for this PORTABLE/BEDSIDE PM [employer]IC[employer] WORKER procedure a re in the results section. APTT Routine 03/24/2019 12:36 Results for this PM MEDICINE WORKER procedure are i n the results section. BASIC METABOLIC PANEL Routine 03/24/2019 12:36 Re sults for this (7) PM MEDIC[employer] WORKER procedure are i n the results section. POCT-GLUCOSE METER Routine 03/24/2019 12:17 Resul ts for this PM [employer]ICINE WORKER procedure are i n the results section. BLOOD GAS, ARTERIAL Routine 03/24/2019 12:04 Resu lts for this PM MEDICINE WORKER procedure are i n the results section. EEG EXTENDED STAT 03/24/2019 11:23 Results for this MONITORING 40 - 60 AM MEDICINE WORKER procedure are in MINUTES the results section. POCT-GLUCOSE METER Routine 03/24/2019 5:58 Resul ts for this AM MEDICINE WORKER procedure are i n the results section. BLOOD GAS, ARTERIAL STAT 03/24/2019 4:29 Resu lts for this AM MEDICINE WORKER procedure are i n the results section. APTT Routine 03/24/2019 4:25 Results for this AM MEDIC[employer] WORKER procedure are i n the results section. CBC W/PLT COUNT & AUTO Routine 03/24/2019 4:10 R esults for this DIFFERENTIAL AM [employer]IC[employer] WORKER procedure are i n the results section. BASIC METABOLIC PANEL Routine 03/24/2019 4:10 Re sults for this (7) AM MEDICINE WORKER procedure are i n the results section. PHOSPHORUS Routine 03/24/2019 4:10 Results for this AM MEDICINE WORKER procedure are i n the results section. MAGNESIUM Routine 03/24/2019 4:10 Results for this AM MEDICINE WORKER procedure are i n the results section. CBC W/PLT COUNT & AUTO Routine 03/24/2019 4:10 R esults for this DIFFERENTIAL AM [employer]IC[employer] WORKER procedure are i n the results section. XR CHEST 1 VIEW Routine 03/24/2019 3:00 Results for this PORTABLE/BEDSIDE AM [employer]IC[employer] WORKER procedure a re in the results section. CT BRAIN WITHOUT IV Routine 03/24/2019 1:12 Resu lts for this CONTRAST AM [employer]IC[employer] WORKER procedure are i n the results section. POCT-GLUCOSE METER Routine 03/24/2019 12:05 Resul ts for this AM MEDIC[employer] WORKER procedure are i n the results section. VANCOMYCIN LEVEL, Timed 03/23/2019 11:59 Result s for this TROUGH PM [employer] WORK[employer] procedure are i n the results section. BASIC METABOLIC PANEL Routine 03/23/2019 7:44 Re sults for this (7) PM [employer]IC[employer] WORKER procedure are i n the results section. AMMONIA STAT 03/23/2019 3:55 Results for this PM MEDICINE WORKER procedure are i n the results section. HEPATIC FUNCTION PANEL Routine 03/23/2019 3:55 R esults for this PM MEDICINE WORKER procedure are i n the results section. BASIC METABOLIC PANEL Routine 03/23/2019 3:55 Re sults for this (7) PM MEDIC[employer] WORKER procedure are i n the results section. (CELLAVISION MANUAL Routine 03/23/2019 5:58 Resu lts for this DIFF) AM [employer]IC[employer] WORKER procedure are i n the results section. CBC W/PLT COUNT & AUTO Routine 03/23/2019 5:58 R esults for this DIFFERENTIAL AM [employer]IC[employer] WORKER procedure are i n the results section. BLOOD GAS, ARTERIAL Routine 03/23/2019 5:58 Resu lts for this AM MEDIC[employer] WORKER procedure are i n the results section. APTT Routine 03/23/2019 5:58 Results for this AM MEDICINE WORKER procedure are i n the results section. BASIC METABOLIC PANEL Routine 03/23/2019 5:58 Re sults for this (7) AM MEDICINE WORKER procedure are i n the results section. PHOSPHORUS Routine 03/23/2019 5:58 Results for this AM MEDICINE WORKER procedure are i n the results section. MAGNESIUM Routine 03/23/2019 5:58 Results for this AM MEDICINE WORKER procedure are i n the results section. CBC W/PLT COUNT & AUTO Routine 03/23/2019 5:58 R esults for this DIFFERENTIAL AM MEDICINE WORKER procedure are i n the results section. POCT-GLUCOSE METER Routine 03/23/2019 5:24 Resul ts for this AM MEDICINE WORKER procedure are i n the results section. POCT-GLUCOSE METER Routine 03/23/2019 12:09 Resul ts for this AM MEDICINE WORKER procedure are i n the results section. APTT Routine 03/22/2019 11:35 Results for this PM MEDICINE WORKER procedure are i n the results section. BASIC METABOLIC PANEL Routine 03/22/2019 8:05 Re sults for this (7) PM MEDICINE WORKER procedure are i n the results section. PT/APTT Routine 03/22/2019 5:15 Results for this PM MEDICINE WORKER procedure are i n the results section. SPIN/CONCENTRATION Routine 03/22/2019 2:37 Resul ts for this CHARGE PM MEDICINE WORKER procedure are i n the results section. FUNGUS CULTURE + Routine 03/22/2019 2:37 Results for this SMEAR PM MEDICINE WORKER procedure are i n the results section. BODY FLUID CELL COUNT Routine 03/22/2019 2:37 Re sults for this WITH DIFFERENTIAL PM MEDICINE WORKER procedure are in the results section. AFB CULTURE + SMEAR Routine 03/22/2019 2:37 Resu lts for this (NON-SPUTUM) PM MEDICINE WORKER procedure are i n the results section. TRIGLYCERIDES, PLEURAL Routine 03/22/2019 2:36 R esults for this FLUID PM MEDICINE WORKER procedure are i n the results section. PROTEIN, TOTAL, Routine 03/22/2019 2:36 Results for this PLEURAL FLUID PM MEDICINE WORKER procedure are in the results section. PH, BODY FLUID Routine 03/22/2019 2:36 Results f or this PM MEDICINE WORKER procedure are i n the results section. LACTATE DEHYDROGENASE Routine 03/22/2019 2:36 Re sults for this (LD), PLEURAL FLUID PM MEDICINE WORKER procedur e are in the results section. GLUCOSE PLEURAL FLUID Routine 03/22/2019 2:36 Re sults for this PM MEDICINE WORKER procedure are i n the results section. BODY FLUID CULTURE + Routine 03/22/2019 2:36 Res ults for this GRAM STAIN PM MEDICINE WORKER procedure are i n the results section. ADENOSINE DEAMINASE, Routine 03/22/2019 2:36 Res ults for this FLUID PM MEDICINE WORKER procedure are i n the results section. TRIGLYCERIDES, PLEURAL Routine 03/22/2019 2:35 R esults for this FLUID PM MEDICINE WORKER procedure are i n the results section. PH, BODY FLUID Routine 03/22/2019 2:35 Results f or this PM MEDICINE WORKER procedure are i n the results section. PROTEIN, TOTAL, Routine 03/22/2019 2:35 Results for this PLEURAL FLUID PM MEDICINE WORKER procedure are in the results section. LACTATE DEHYDROGENASE Routine 03/22/2019 2:35 Re sults for this (LD), PLEURAL FLUID PM MEDICINE WORKER procedur e are in the results section. GLUCOSE PLEURAL FLUID Routine 03/22/2019 2:35 Re sults for this PM MEDICINE WORKER procedure are i n the results section. FUNGUS CULTURE + Routine 03/22/2019 2:35 Results for this SMEAR PM MEDICINE WORKER procedure are i n the results section. BODY FLUID CULTURE + Routine 03/22/2019 2:35 Res ults for this GRAM STAIN PM MEDICINE WORKER procedure are i n the results section. BODY FLUID CELL COUNT Routine 03/22/2019 2:35 Re sults for this WITH DIFFERENTIAL PM MEDICINE WORKER procedure are in the results section. ALBUMIN PLEURAL FLUID Routine 03/22/2019 2:35 Re sults for this PM MEDICINE WORKER procedure are i n the results section. AFB CULTURE + SMEAR Routine 03/22/2019 2:35 Resu lts for this (NON-SPUTUM) PM MEDICINE WORKER procedure are i n the results section. ADENOSINE DEAMINASE, Routine 03/22/2019 2:35 Res ults for this FLUID PM MEDICINE WORKER procedure are i n the results section. SPIN/CONCENTRATION Routine 03/22/2019 2:32 Resul ts for this CHARGE PM MEDICINE WORKER procedure are i n the results section. SPIN/CONCENTRATION Routine 03/22/2019 2:32 Resul ts for this CHARGE PM MEDICINE WORKER procedure are i n the results section. AFB CULTURE + SMEAR CHRISSIE 03/22/2019 2:32 Resu lts for this (NON-SPUTUM) PM MEDICINE WORKER procedure are i n the results section. LEGIONELLA CULTURE Routine 03/22/2019 2:32 Resul ts for this PM MEDICINE WORKER procedure are i n the results section. FUNGUS CULTURE + CHRISSIE 03/22/2019 2:32 Results for this SMEAR PM MEDICINE WORKER procedure are i n the results section. BRONCHIAL CULTURE + CHRISSIE 03/22/2019 2:32 Resu lts for this GRAM STAIN PM MEDICINE WORKER procedure are i n the results section. FUNGUS CULTURE + Routine 03/22/2019 2:32 Results for this SMEAR PM MEDICINE WORKER procedure are i n the results section. AFB CULTURE + SMEAR Routine 03/22/2019 2:32 Resu lts for this (NON-SPUTUM) PM MEDICINE WORKER procedure are i n the results section. BRONCHIAL CULTURE + Routine 03/22/2019 2:32 Resu lts for this GRAM STAIN PM MEDICINE WORKER procedure are i n the results section. APTT Routine 03/22/2019 9:35 Results for this AM MEDICINE WORKER procedure are i n the results section. BASIC METABOLIC PANEL Routine 03/22/2019 9:35 Re sults for this (7) AM MEDICINE WORKER procedure are i n the results section. BLOOD CULTURE Routine 03/22/2019 9:35 Results fo r this AM MEDICINE WORKER procedure are i n the results section. BLOOD CULTURE Routine 03/22/2019 9:35 Results fo r this AM MEDICINE WORKER procedure are i n the results section. XR CHEST 1 VIEW Routine 03/22/2019 8:09 Results for this PORTABLE/BEDSIDE AM MEDICINE WORKER procedure a re in the results section. POCT-GLUCOSE METER Routine 03/22/2019 5:53 Resul ts for this AM MEDICINE WORKER procedure are i n the results section. CBC W/PLT COUNT & AUTO Routine 03/22/2019 1:58 R esults for this DIFFERENTIAL AM MEDICINE WORKER procedure are i n the results section. BASIC METABOLIC PANEL Routine 03/22/2019 1:58 Re sults for this (7) AM MEDICINE WORKER procedure are i n the results section. PHOSPHORUS Routine 03/22/2019 1:58 Results for this AM MEDICINE WORKER procedure are i n the results section. CBC W/PLT COUNT & AUTO Routine 03/22/2019 1:58 R esults for this DIFFERENTIAL AM MEDICINE WORKER procedure are i n the results section. MAGNESIUM STAT 03/22/2019 1:58 Results for this AM MEDICINE WORKER procedure are i n the results section. VANCOMYCIN LEVEL, Routine 03/22/2019 1:58 Result s for this TROUGH AM MEDICINE WORKER procedure are i n the results section. POCT-GLUCOSE METER Routine 03/22/2019 12:30 Resul ts for this AM MEDICINE WORKER procedure are i n the results section. BASIC METABOLIC PANEL Routine 03/21/2019 9:52 Re sults for this (7) PM MEDICINE WORKER procedure are i n the results section. TRANSFUSION SERVICE 03/21/2019 9:06 REPORT - SCAN PM MEDICINE WORKER BODY FLUID CULTURE + Routine 03/21/2019 7:34 Res ults for this GRAM STAIN PM MEDICINE WORKER procedure are i n the results section. TRIGLYCERIDES, PLEURAL Routine 03/21/2019 7:10 R esults for this FLUID PM MEDICINE WORKER procedure are i n the results section. PROTEIN, TOTAL, Routine 03/21/2019 7:10 Results for this PLEURAL FLUID PM MEDICINE WORKER procedure are in the results section. PH, BODY FLUID Routine 03/21/2019 7:10 Results f or this PM MEDICINE WORKER procedure are i n the results section. FUNGUS CULTURE + Routine 03/21/2019 7:10 Results for this SMEAR PM MEDICINE WORKER procedure are i n the results section. BODY FLUID CELL COUNT Routine 03/21/2019 7:10 Re sults for this WITH DIFFERENTIAL PM MEDICINE WORKER procedure are in the results section. LACTATE DEHYDROGENASE Routine 03/21/2019 7:09 Re sults for this (LD), PLEURAL FLUID PM MEDICINE WORKER procedur e are in the results section. GLUCOSE PLEURAL FLUID Routine 03/21/2019 7:09 Re sults for this PM MEDICINE WORKER procedure are i n the results section. ALBUMIN PLEURAL FLUID Routine 03/21/2019 7:09 Re sults for this PM MEDICINE WORKER procedure are i n the results section. US DRAINAGE CHEST WITH STAT 03/21/2019 6:25 R esults for this TUBE INSERTION PM MEDICINE WORKER procedure are in the results section. RETICULOCYTE COUNT Routine 03/21/2019 8:50 Resul ts for this AM MEDICINE WORKER procedure are i n the results section. RESPIRATORY PANEL [facility] Routine 03/21/2019 8:50 R esults for this AM MEDICINE WORKER procedure are i n the results section. RAPID INFLUENZA A&B STAT 03/21/2019 8:50 Resu lts for this SCREEN AM MEDICINE WORKER procedure are i n the results section. MRSA SCREEN STAT 03/21/2019 8:50 Results for this AM MEDICINE WORKER procedure are i n the results section. MAGNESIUM Add-On 03/21/2019 8:49 Results for this AM MEDICINE WORKER procedure are i n the results section. BASIC METABOLIC PANEL Routine 03/21/2019 8:49 Re sults for this (7) AM MEDICINE WORKER procedure are i n the results section. VITAMIN B12 AND FOLATE Routine 03/21/2019 8:49 R esults for this AM MEDICINE WORKER procedure are i n the results section. LACTATE DEHYDROGENASE Routine 03/21/2019 8:49 Re sults for this (LDH) AM MEDICINE WORKER procedure are i n the results section. IRON, TIBC, % SAT. Routine 03/21/2019 8:49 Resul ts for this (WITHOUT FERRITIN) AM MEDICINE WORKER procedure are in the results section. FERRITIN Routine 03/21/2019 8:49 Results for this AM MEDICINE WORKER procedure are i n the results section. POCT-GLUCOSE METER Routine 03/21/2019 5:34 Resul ts for this AM MEDICINE WORKER procedure are i n the results section. US ABDOMEN LIMITED Routine 03/21/2019 3:55 Resul ts for this AM MEDICINE WORKER procedure are i n the results section. (CELLAVISION MANUAL Routine 03/21/2019 2:03 Resu lts for this DIFF) AM MEDICINE WORKER procedure are i n the results section. CBC W/PLT COUNT & AUTO Routine 03/21/2019 2:03 R esults for this DIFFERENTIAL AM MEDICINE WORKER procedure are i n the results section. PHOSPHORUS Routine 03/21/2019 2:03 Results for this AM MEDICINE WORKER procedure are i n the results section. MAGNESIUM Routine 03/21/2019 2:03 Results for this AM MEDICINE WORKER procedure are i n the results section. CBC W/PLT COUNT & AUTO Routine 03/21/2019 2:03 R esults for this DIFFERENTIAL AM MEDICINE WORKER procedure are i n the results section. MAGNESIUM STAT Add-on 03/21/2019 12:18 Results for this AM MEDICINE WORKER procedure are i n the results section. BASIC METABOLIC PANEL Routine 03/21/2019 12:18 Re sults for this (7) AM MEDICINE WORKER procedure are i n the results section. POCT-GLUCOSE METER Routine 03/20/2019 11:46 Resul ts for this PM MEDICINE WORKER procedure are i n the results section. ECHOCARDIOGRAM REPORT 03/20/2019 9:22 - SCAN PM MEDICINE WORKER POCT-GLUCOSE METER Routine 03/20/2019 6:11 Resul ts for this PM MEDICINE WORKER procedure are i n the results section. BLOOD GAS, ARTERIAL STAT 03/20/2019 4:34 Resu lts for this PM MEDICINE WORKER procedure are i n the results section. MAGNESIUM STAT Add-on 03/20/2019 4:33 Results for this PM MEDICINE WORKER procedure are i n the results section. BASIC METABOLIC PANEL Routine 03/20/2019 4:33 Re sults for this (7) PM MEDICINE WORKER procedure are i n the results section. VANCOMYCIN LEVEL, STAT 03/20/2019 12:58 Result s for this TROUGH PM MEDICINE WORKER procedure are i n the results section. ECG 12-LEAD Routine 03/20/2019 12:42 PM MEDICINE WORKER Procedure Note - Interface, External Ris In - 03/20/2019 1:04 PM MEDICINE WORKER Ventricular Rate 95 BPM Atrial Rate 326 BPM QRS Duration 106 ms Q-T Interval 362 ms QTC Calculation(Bazett) 454 ms R [place] 15 degrees T [place] 134 degrees Atrial fibrillation Minimal voltage criteria for LVH, may be normal variant Nonspecific ST and T wave ab normality , probably digitalis effect Abnormal ECG When compared with ECG of 00:28, T wave inversion no longer e vident in Anterior leads ECG 12-LEAD Routine 03/20/2019 12:42 PM MEDICINE WORKER Resu lts for this procedure are i n the results section . POCT-GLUCOSE METER Routine 03/20/2019 12:14 PM MEDICINE WORKER Results for this procedure are i n the results section . 2D ECHO W/ DOPPLER STAT 03/20/2019 11:05 AM MEDICINE WORKER Results for this (CW/PW/COLOR) procedure are in the results section . CT CHEST WITHOUT IV STAT 03/20/2019 10:45 AM MEDICINE WORKER Results for this CONTRAST procedure are i n the results section . SPUTUM CULTURE + GRAM STAIN Routine 03/20/2019 6:31 AM MEDICINE WORKER Results for this procedure are i n the results section . TROPONIN I Routine 03/20/2019 5:49 AM MEDICINE WORKER Resu lts for this procedure are i n the results section . ABORH, MANUAL STAT 03/20/2019 5:48 AM MEDICINE WORKER Res ults for this procedure are i n the results section . POCT-GLUCOSE METER Routine 03/20/2019 5:44 AM MEDICINE WORKER Results for this procedure are i n the results section . XR CHEST 1 VIEW STAT 03/20/2019 4:05 AM MEDICINE WORKER R esults for this PORTABLE/BEDSIDE procedure a re in the results section . BLOOD GAS, ARTERIAL STAT 03/20/2019 3:14 AM MEDICINE WORKER Results for this procedure are i n the results section . BLOOD CULTURE Routine 03/20/2019 3:08 AM MEDICINE WORKER Res ults for this procedure are i n the results section . BLOOD CULTURE Routine 03/20/2019 3:08 AM MEDICINE WORKER Res ults for this procedure are i n the results section . TYPE AND SCREEN, AUTOMATED STAT 03/20/2019 3:00 AM MEDICINE WORKER Results for this procedure are i n the results section . FIBRINOGEN STAT 03/20/2019 3:00 AM MEDICINE WORKER Resu lts for this procedure are i n the results section . LACTIC ACID, VENOUS STAT 03/20/2019 3:00 AM MEDICINE WORKER Results for this procedure are i n the results section . PT/APTT Routine 03/20/2019 3:00 AM MEDICINE WORKER Resu lts for this procedure are i n the results section . PROTHROMBIN TIME/INR Routine 03/20/2019 3:00 AM MEDICINE WORKER Results for this procedure are i n the results section . TSH/FREE T4 IF INDICATED Routine 03/20/2019 3:00 AM MEDICINE WORKER Results for this procedure are i n the results section . HEMOGLOBIN A1C Routine 03/20/2019 3:00 AM MEDICINE WORKER Re sults for this procedure are i n the results section . B-TYPE NATRIURETIC FACTOR STAT 03/20/2019 3:00 AM MEDICINE WORKER Results for this (BNP) procedure are i n the results section . VANCOMYCIN LEVEL, RANDOM Routine 03/20/2019 3:00 AM MEDICINE WORKER Results for this procedure are i n the results section . CBC W/PLT COUNT & AUTO Routine 03/20/2019 2:59 AM MEDICINE WORKER Results for this DIFFERENTIAL procedure are i n the results section . CBC W/PLT COUNT & AUTO Routine 03/20/2019 2:59 AM MEDICINE WORKER Results for this DIFFERENTIAL procedure are i n the results section . LIPID PANEL Routine 03/20/2019 2:59 AM MEDICINE WORKER Resu lts for this procedure are i n the results section . TROPONIN I Routine 03/20/2019 2:59 AM MEDICINE WORKER Resu lts for this procedure are i n the results section . PHOSPHORUS STAT 03/20/2019 2:59 AM MEDICINE WORKER Resu lts for this procedure are i n the results section . MAGNESIUM STAT 03/20/2019 2:59 AM MEDICINE WORKER Resu lts for this procedure are i n the results section . HEPATIC FUNCTION PANEL STAT 03/20/2019 2:59 AM MEDICINE WORKER Results for this procedure are i n the results section . BASIC METABOLIC PANEL (7) STAT 03/20/2019 2:59 AM MEDICINE WORKER Results for this procedure are i n the results section . LEGIONELLA URINE ANTIGEN Routine 03/20/2019 2:23 AM MEDICINE WORKER Results for this procedure are i n the results section . STREP PNEUMONIAE ANTIGEN Routine 03/20/2019 2:23 AM MEDICINE WORKER Results for this procedure are i n the results section . URINALYSIS W/ REFLEX URINE Routine 03/20/2019 2:22 AM MEDICINE WORKER Results for this CULTURE procedure are i n the results section . OSMOLALITY, URINE Routine 03/20/2019 2:22 AM MEDICINE WORKER Results for this procedure are i n the results section . PROTEIN, RANDOM URINE Routine 03/20/2019 2:22 AM MEDICINE WORKER Results for this procedure are i n the results section . UREA NITROGEN, RANDOM URINE Routine 03/20/2019 2:22 AM MEDICINE WORKER Results for this procedure are i n the results section . CREATININE, RANDOM URINE Routine 03/20/2019 2:22 AM MEDICINE WORKER Results for this procedure are i n the results section . CHLORIDE, RANDOM URINE Routine 03/20/2019 2:22 AM MEDICINE WORKER Results for this procedure are i n the results section . SODIUM, RANDOM URINE Routine 03/20/2019 2:22 AM MEDICINE WORKER Results for this procedure are i n the results section . URINE CULTURE Routine 03/20/2019 2:22 AM MEDICINE WORKER Res ults for this procedure are i n the results section . POCT-GLUCOSE METER Routine 03/20/2019 12:39 AM MEDICINE WORKER Results for this procedure are i n the results section . ECG 12-LEAD Routine 03/20/2019 12:28 AM MEDICINE WORKER Procedure Note - Interface, External Ris In - 03/20/2019 1:55 AM MEDICINE WORKER Ventricular Rate 125 BPM Atrial Rate 129 BPM QRS Duration 106 ms Q-T Interval 356 ms QTC Calculation(Bazett) 513 ms R [place] 15 degrees T [place] 168 degrees Atrial fibrillation with rap id ventricular response with premature ventricular or aberrantly conducted complexes ST & T wave abnormality, con mosaic layer anterolateral ischemia or digitalis effect Abnormal ECG When compared with ECG of 09:00, ST now depressed in Anterior leads Nonspecific T wave abnormali ty has replaced inverted T waves in Inferior leads T wave inversion now evident in Anterior leads ECG 12-LEAD Routine 03/20/2019 12:28 AM MEDICINE WORKER Resu lts for this procedure are i n the results section . REPORT OF PROCEDURE - 01/28/2019 1:40 PM MEDICINE WORKER ENDOSCOPY SCAN RHYTHM STRIP - SCAN 01/28/2019 1:40 PM MEDICINE WORKER CBC W/PLT COUNT & AUTO Routine 01/24/2019 4:31 AM MEDICINE WORKER Results for this DIFFERENTIAL procedure are i n the results section . PHOSPHORUS STAT Add-on 01/24/2019 4:31 AM MEDICINE WORKER Resu lts for this procedure are i n the results section . MAGNESIUM STAT Add-on 01/24/2019 4:31 AM MEDICINE WORKER Resu lts for this procedure are i n the results section . BASIC METABOLIC PANEL (7) Routine 01/24/2019 4:31 AM MEDICINE WORKER Results for this procedure are i n the results section . CBC W/PLT COUNT & AUTO Routine 01/24/2019 4:31 AM MEDICINE WORKER Results for this DIFFERENTIAL procedure are i n the results section . TROPONIN I STAT 01/23/2019 9:59 PM MEDICINE WORKER Resu lts for this procedure are i n the results section . ECHOCARDIOGRAM REPORT - 01/23/2019 9:21 PM MEDICINE WORKER SCAN TROPONIN I STAT 01/23/2019 4:02 PM MEDICINE WORKER Resu lts for this procedure are i n the results section . B-TYPE NATRIURETIC FACTOR STAT 01/23/2019 10:13 AM MEDICINE WORKER Results for this (BNP) procedure are i n the results section . TROPONIN I STAT 01/23/2019 10:13 AM MEDICINE WORKER Resu lts for this procedure are i n the results section . TSH/FREE T4 IF INDICATED CHRISSIE 01/23/2019 10:13 AM MEDICINE WORKER Results for this procedure are i n the results section . ECG 12-LEAD STAT 01/23/2019 9:00 AM MEDICINE WORKER Resu lts for this procedure are i n the results section . MRA HEAD WITHOUT IV STAT 01/23/2019 8:01 AM MEDICINE WORKER Results for this CONTRAST procedure are i n the results section . CBC W/PLT COUNT & AUTO Routine 01/23/2019 4:59 AM MEDICINE WORKER Results for this DIFFERENTIAL procedure are i n the results section . MAGNESIUM STAT Add-on 01/23/2019 4:59 AM MEDICINE WORKER Resu lts for this procedure are i n the results section . BASIC METABOLIC PANEL (7) Routine 01/23/2019 4:59 AM MEDICINE WORKER Results for this procedure are i n the results section . CBC W/PLT COUNT & AUTO Routine 01/23/2019 4:59 AM MEDICINE WORKER Results for this DIFFERENTIAL procedure are i n the results section . POTASSIUM Routine 01/22/2019 7:43 PM MEDICINE WORKER Resu lts for this procedure are i n the results section . MR BRAIN WITHOUT IV Routine 01/22/2019 6:11 PM MEDICINE WORKER Results for this CONTRAST procedure are i n the results section . CT/CTA CAROTID Routine 01/22/2019 4:59 PM MEDICINE WORKER Re sults for this procedure are i n the results section . CTA BRAIN Routine 01/22/2019 4:59 PM MEDICINE WORKER Resu lts for this procedure are i n the results section . 2D ECHO W/ DOPPLER Routine 01/22/2019 1:16 PM MEDICINE WORKER Results for this (CW/PW/COLOR) procedure are in the results section . MAGNESIUM STAT Add-on 01/22/2019 4:17 AM MEDICINE WORKER Resu lts for this procedure are i n the results section . TROPONIN I Routine 01/22/2019 4:17 AM MEDICINE WORKER Resu lts for this procedure are i n the results section . HEMOGLOBIN A1C Routine 01/22/2019 4:17 AM MEDICINE WORKER Re sults for this procedure are i n the results section . LIPID PANEL Routine 01/22/2019 4:17 AM MEDICINE WORKER Resu lts for this procedure are i n the results section . CBC W/PLT COUNT & AUTO Routine 01/21/2019 11:26 PM MEDICINE WORKER Results for this DIFFERENTIAL procedure are i n the results section . PROTHROMBIN TIME/INR Routine 01/21/2019 11:26 PM MEDICINE WORKER Results for this procedure are i n the results section . VITAMIN B12 AND FOLATE Routine 01/21/2019 11:26 PM MEDICINE WORKER Results for this procedure are i n the results section . RPR Routine 01/21/2019 11:26 PM MEDICINE WORKER Resu lts for this procedure are i n the results section . TSH/FREE T4 IF INDICATED Routine 01/21/2019 11:26 PM MEDICINE WORKER Results for this procedure are i n the results section . TROPONIN I Routine 01/21/2019 11:26 PM MEDICINE WORKER Resu lts for this procedure are i n the results section . CBC W/PLT COUNT & AUTO Routine 01/21/2019 11:26 PM MEDICINE WORKER Results for this DIFFERENTIAL procedure are i n the results section . BASIC METABOLIC PANEL (7) Routine 01/21/2019 11:26 PM MEDICINE WORKER Results for this procedure are i n the results section . XR CHEST 1 VIEW Routine 01/21/2019 11:19 PM MEDICINE WORKER R esults for this PORTABLE/BEDSIDE procedure a re in the results section . after 11/19/2018 Results RHYTHM STRIP - SCAN (07/02/2019 12:50 [...] : TESTED AT 70 - 110 mg/dL [facility] [id number] [facility], [id number]: Accountant Property/Indoor Landscape Architect ID = [id number] for RYAN ECHOLS Specimen Blood Performing Organization Address City/State/Zipcode Phone Number [address] [phone] CENTER Comprehensive metabolic panel (06/09/2019 11:30 AM CDT)Only the most recent of10 resultswithin the time period is included. Protein, Total 6.7Comment: Specimen 6.0 - 8.3 gm/dL [facility] slightly hemolyzed [facility] Albumin 2.1 (L)Comment: Specimen 3.5 - 5.0 g/dL [facility] slightly hemolyzed [facility] Alkaline Phosphatase 202 (H) 40 - 150 U/L [facility] Total Bilirubin 1.2Comment: Specimen 0.2 - 1.2 mg/dL [facility] slightly hemolyzed [facility] Sodium 142 136 - 145 meq/L [facility] Potassium 4.4Comment: Specimen 3.5 - 5.1 meq/L [facility] slightly hemolyzed [facility] Chloride 107 98 - 107 meq/L [facility] CO2 30 (H) 22 - 29 meq/L [facility] BUN 25 (H) 7 - 21 mg/dL [facility] Creatinine 0.76Comment: Specimen 0.57 - 1.25 mg/dL [facility] slightly hemolyzed [facility] Glucose 108 (H) 70 - 105 mg/dL [facility] MEDICAL [facility] ER Calcium 7.9 (L) 8.4 - 10.2 mg/dL [facility] AST 77 (H)Comment: Specimen 5 - 34 U/L [facility] slightly hemolyzed [facility] ALT 86 (H)Comment: Specimen 6 - 55 U/L [facility] slightly hemolyzed [facility] EGFR 103Comment: ESTIMATED mL/min/1.73 sq m GFR IS NOT ACCURATE [facility] CREATININE CLEARANCE IN PREDICTING GLOMERULAR FILTRATION RATE. ESTIMATED GFR IS NOT APPLICABLE FOR DIALYSIS PATIENTS. Specimen Blood Narrative Performed At Accountant Property ID - [facility] Performing Organization Address City/[facility]/Zipcode Phone Number [address] [phone] CENTER Potassium (06/05/2019 4:31 PM CDT)Only the most recent of2 resultswithin the time period is included. Potassium 3.9 3.5 - 5.1 meq/L [facility] Specimen Blood Narrative Performed At Accountant Property ID - BS [facility] Performing Organization Address City/[facility]/Zipcode Phone Number [address] [address] CENTER Basic Metabolic Panel (06/05/2019 6:01 AM CDT)Only the most recent of74 results within the time period is included. Sodium 145 136 - 145 meq/L [facility] Potassium 3.0 (L) 3.5 - 5.1 meq/L [facility] Chloride 101 98 - 107 meq/L [facility] CO2 38 (H) 22 - 29 meq/L [facility] BUN 28 (H) 7 - 21 mg/dL [facility] Creatinine 0.87 0.57 - 1.25 mg/dL [facility] Glucose 110 (H) 70 - 105 mg/dL [facility] Calcium 7.9 (L) 8.4 - 10.2 mg/dL [facility] EGFR 88Comment: ESTIMATED GFR IS mL/min/1.73 sq m [facility] NOT ACCURATE CREATININE [facility] CLEARANCE IN PREDICTING GLOMERULAR FILTRATION RATE. ESTIMATED GFR IS NOT APPLICABLE FOR DIALYSIS PATIENTS. Specimen Blood Narrative Performed At Accountant Property ID - PIAYA L [facility] Performing Organization Address City/State/Zipcode Phone Number [facility] [address] [place] [address] [facility] esoph swallow funct with cine video (06/04/2019 2:45 PM CDT)Only the most recent of3 resultswithin the time period is included. Specimen Narrative Performed At FINAL REPORT [facility] EXAMINATION: Modified barium swallow juan carlos dy [...] MD Report Verified Date/Time:06/04/2019 15:08:42 Reading Location: [facility] C013T [facility] Reading Room Procedure Note Interface, External Ris [...] Verified Date/Time: 06/04/2019 1 5:08:42 Reading Location: [facility] C013T [facility] Reading Room Performing Organization Address City/State/Zipcode Phone Number GE RIS CBC with platelet count + automated diff (06/04/2019 5:15 AM CDT)Only the most recent of56 resultswithin the time period is included. WBC 13.3 (H) 3.5 - 10.5 K/L [facility] RBC 4.12 (L) 4.63 - 6.08 M/L [facility] Hemoglobin 10.8 (L) 13.7 - 17.5 GM/DL [facility] Hematocrit 35.6 (L) 40.1 - 51.0 % [facility] MCV 86.4 79.0 - 92.2 fL [facility] MCH 26.2 25.7 - 32.2 pg [facility] MCHC 30.3 (L) 32.3 - 36.5 GM/DL [facility] RDW 20.1 (H) 11.6 - 14.4 % [facility] Platelets 240 150 - 450 K/CU MM [facility] MPV 12.3 9.4 - 12.4 fL [facility] nRBC 0 0 - 0 /100 WBC [facility] % Neutros 71 % [facility] % Lymphs 16 % [facility] % Monos 9 % [facility] % Eos 3 % [facility] % Baso 1 % [facility] # Neutros 9.45 (H) 1.78 - 5.38 K/L [facility] # Lymphs 2.08 1.32 - 3.57 K/L [facility] # Monos 1.24 (H) 0.30 - 0.82 K/L [facility] # Eos 0.43 0.04 - 0.54 K/L [facility] # Baso 0.07 0.01 - 0.08 K/L [facility] Immature Granulocytes-Relative 0 0 - 1 % C HI [facility] Specimen Blood Performing Organization Address City/State/Zipcode Phone Number [facility] [address] [place] [address] CENTER US abdomen limited (06/04/2019 2:10 AM CDT)Only the most recent of2 results within the time period is included. Specimen Narrative Performed At FINAL REPORT [facility] History: Elevated LFTs Abdominal ultrasound dated 06/04/2019 [...] Date/Time: 06/04/2019 0 4:00:37 Performing Organization Address City/State/Zipcode Phone Number [facility] Ammonia (06/03/2019 2:56 PM CDT)Only the most recent of2 resultswithin the time period is included. Ammonia 82 (H) 18 - 72 mol/L [facility] Specimen Blood Narrative Performed At Accountant Property ID - BS [facility] Performing Organization Address City/State/Zipcode Phone Number [facility] [address] [place] [address] CENTER Magnesium (06/03/2019 5:25 AM CDT)Only the most recent of55 resultswithin the time period is included. Magnesium 2.2Comment: Specimen slightly 1.6 - 2.6 mg/dL [facility] hemolyzed [facility] Specimen Blood Narrative Performed At Accountant Property ID - BS [facility] Performing Organization Address City/State/Zipcode Phone Number [address] [address] [place] Blood gas, arterial (06/02/2019 8:15 AM CDT)Only the most recent of23 results within the time period is included. pH, Arterial 7.57 (H) 7.35 - 7.45 [facility] pCO2, Arterial 50 (H) 35 - 45 mmHg [facility] pO2, Arterial 68 (L) 80 - 90 mmHg [facility] O2 Sat, Arterial 95.6 (L) 96.0 - 97.0 % [facility] HCO3, Arterial 45 (HH) 21 - 29 mmol/L [facility] Base Excess, Arterial 20.4 (H) -2.0 - 3.0 mmol/L [facility] Patient Temperature 36.7 C [facility] FIO2 21.0 % [facility] Specimen Blood, Arterial Performing Organization Address [facility] Phone Number [address] [address] [place] Vancomycin level, trough (06/02/2019 1:24 AM CDT)Only the most recent of5 resultswithin the time period is included. Vancomycin Tr 32.2 (HH) 10.0 - 20.0 ug/mL [facility] Specimen Blood Narrative Performed At Accountant Property ID - SANDRA Maurice [facility] Performing Organization Address City/[facility]/Zipcode Phone Number [address] [address] [place] ECHOCARDIOGRAM REPORT - SCAN (06/01/2019 9:20 PM CDT) Narrative Performed At This result has an attachment that is no t available. 2D Echo W/Doppler(CW/PW/Color) (06/01/2019 2:50 PM CDT) Ejection Fraction [facility] ECHO HEAR TLAB [facility] Specimen Narrative Performed At Transthoracic Echocardiography Report (T TE) [facility] ECHO HEARTLAB [facility] Demographics Patient Roya Valdes of Study06/01/2019 Male Visit [id number] Unknown Room [id number] Number Date of 1955Referring PhysicianOle Dominguez MD Age 63 year(s)Sweep Press Operator Isael Middleton Corporate Buyer Aliya Yee Interpreting Stephan Conklin MD Procedure [...] of Study 06/01/2019 Gender Male Visit Number [id number] Race Unknown [facility] C724 Number Date of 1955 Referri Physician Ole Dominguez MD Age 63 year(s) Sonogra pher Abed Kane Corporate Buyer Aliya Yee Interpr eting Isaac Gonzalez MD [...] Gradient: 3.65 mmHg Mean Velocity: 0.62 m/s Nichoel n Gradient: 1.84 mmHg LVOT Diameter: 2.01 cm LVO T VTI: 16.43 cm LVOT Area: 3.17 cm^2 LVO T SV:52.11 ml LVOT CO: 4.9 l/min LVO T CI: 2.59 l/min/m^2 Performing Organization Address [facility] Phone Number [facility] ECHO HEARTLAB [facility] MRSA screen (06/01/2019 10:47 AM CDT)Only the most recent of2 resultswithin the time period is included. Result No MRSA isolated [facility] Specimen Nasal Performing Organization Address [facility] Phone Number [address] [address] CENTER Phosphorus (06/01/2019 10:46 AM CDT)Only the most recent of48 resultswithin the time period is included. Phosphorus 4.3 2.3 - 4.7 mg/dL [facility] Specimen Blood Narrative Performed At Accountant Property ID - SONIA F [facility] Performing Organization Address [facility] Phone Number [address] [address] CENTER Prothrombin time/INR (05/31/2019 10:31 AM CDT)Only the most recent of9 results within the time period is included. Protime 17.8 (H) 11.9 - 14.2 seconds [facility] INR 1.5 <=5.9 [facility] Specimen Blood Narrative Performed At Effective 07/24/2018: PT Reference Range [facility] Change New: 11.9-14.2Previous: 11.7-14.7 RECOMMENDED COUMADIN/WARFARIN INR THERAPY RANGES STANDARD DOSE: 2.0-3.0Includes: PROPHYLAXIS for venous thrombosis, systemic embolization; TREATMENT for venous thrombosis and/or pulmonary embolus. HIGH RISK: Target INR is 2.5-3.5 for patients wiht mechanical heart valves. Performing Organization Address City/State/Zipcode Phone Number [address] [address] CENTER Hepatitis panel, acute (05/31/2019 8:24 AM CDT) Hep A IgM Reactive (A) Nonreactive [facility] Hep B C IgM Nonreactive Nonreactive [facility] Hepatitis C Ab Nonreactive Nonreactive [facility] HBsAg Screen Nonreactive Nonreactive [facility] Specimen Blood Narrative Performed At Accountant Property ID Sultana Lloyd [facility] Performing Organization Address City/[facility] Phone Number [address] [address] CENTER B-type Natriuretic Factor (BNP) (05/31/2019 8:23 AM CDT)Only the most recent of 4 resultswithin the time period is included. BNP 1,536 (H) 0 - 100 pg/mL [facility] Specimen Blood Narrative Performed At Accountant Property ID Sultana Richards [facility] Performing Organization Address City/State/Zipcode Phone Number [address] [address] CENTER Vancomycin level, random (05/31/2019 8:23 AM CDT)Only the most recent of2 resultswithin the time period is included. Vancomycin Rm 18.6 ug/mL [facility] Specimen Blood Narrative Performed At Reference Range: No Normals [facility] Accountant Property ID - ALMA Richards Performing Organization Address [facility] Phone Number [facility] [address] [place] [phone] [place] Blood Culture - Routine (Right Venipuncture) (05/31/2019 8:22 AM CDT)Only the most recent of8 resultswithin the time period is included. Result No growth in 5 days [facility] Specimen Blood Performing Organization Address [facility] Phone Number [facility] [address] [place] [address] [place] ECG 12 lead (05/31/2019 7:21 AM CDT)Only the most recent of9 resultswithin the time period is included. Specimen Narrative Performed At Ventricular Rate 83 BPM GE MUSE Atrial Rate 76 BPM QRS Duration 122 ms Q-T Interval 376 ms QTC Calculation(Bazett) 441 ms R [place] 9 degrees T [place] 168 degrees Atrial fibrillation Left ventricular hypertrophy [...] 376 ms QTC Calculation(Bazett) 441 ms R [place] 9 degrees T [place] 168 degrees Atrial fibrillation Left ventricular hypertrophy with QRS wi dening Nonspecific ST and T wave abnormality Abnormal ECG When compared with ECG of 30-MAY-2019 19 :25, No significant change was found Confirmed by MD YO YOCHAI ([id number]) on 06/02/2019 7:02:10 AM Performing Organization Address City/[facility] Phone Number GE MUSE Urea Nitrogen, random urine (05/31/2019 3:26 AM CDT)Only the most recent of2 resultswithin the time period is included. Urea Nitrogen, Ur 332 mg/dL [facility] Specimen Urine Narrative Performed At Reference Range: No Normals [facility] Accountant Property ID - PIAYA L Performing Organization Address [facility] [address] [place] Sodium, random urine (05/31/2019 3:26 AM CDT)Only the most recent of2 results within the time period is included. Sodium Urine 59 meq/L [facility] Specimen Urine Narrative Performed At Reference Range: No Normals [facility] Accountant Property ID - PIAYA L Performing Organization Address [facility] [place] [place] [address] [place] Creatinine, random urine (05/31/2019 3:26 AM CDT)Only the most recent of2 resultswithin the time period is included. Creatinine, Ur 24.9 mg/dL [facility] Specimen Urine Narrative Performed At Reference Range: No Normals [facility] Accountant Property ID - PIAYA L Performing Organization Address [facility] Phone Number [address] [address] [place] XR chest 1 view portable / bedside (05/30/2019 9:03 PM CDT)Only the most recent of44 resultswithin the time period is included. Specimen Narrative Performed At FINAL REPORT [facility] History: Right-sided effusion noted on o [...] 2:00:23 Performing Organization Address City/State/Zipcode Phone Number AMS[facility] XR chest 2 views (05/08/2019 12:14 PM CDT) Specimen Narrative Performed At FINAL REPORT AMS-Qi EXAMINATION: PA and lateral views of the [...] MD Report Verified Date/Time:05/09/2019 08:51:36 Reading Location: [facility] Reading Dennise wallace 1 - B01.627 Procedure [...] residual bulla or pneumatocele in the ri t lower chest. Stable small bilateral pleural effusions and probable reactive right pleural change. Signed: Fredi Hua MD Report Verified Date/Time: 05/09/2019 0 8:51:36 Reading Location: [facility] Reading Dennise wallace 1 - B01.627 Performing Organization Address City/State/Zipcode Phone Number GE RIS Prealbumin (04/23/2019 3:53 AM MEDICINE WORKER) Prealbumin 7 (L) 14 - 45 mg/dL [facility] Specimen Blood Narrative Performed At Accountant Property ID - ELISSA Wallace [facility] Performing Organization Address City/[facility] Phone Number [address] [address] [place] TRANSFUSION SERVICE REPORT - SCAN (04/19/2019 6:02 PM MEDICINE WORKER)Only the most recent of6 resultswithin the time period is included. Narrative Performed At This result has an attachment that is no t available. Prepare Leuko-Red RBC (04/18/2019 11:54 PM MEDICINE WORKER)Only the most recent of6 results within the time period is included. CROSSMATCH COMPATIBLE SAFETRACE TX Unit ABO A Neg [facility] [place] UNIT NUMBER [id number] SAFET[place]ACE TX Status TX_TIMEINCHART [facility] [place] Blood Bank Product RED BLOOD CELLS [place] PRODUCT CODE [id number] [place] Specimen Other Performing Organization Address [facility] Phone Number S[place]RACE [place] Transfuse Leuko-Red RBC (04/17/2019 11:41 AM MEDICINE WORKER)Only the most recent of14 resultswithin the time period is included.aPTT (04/17/2019 3:30 AM MEDICINE WORKER)Only the most recent of40 resultswithin the time period is included. PTT 41.6 (H) 22.5 - 36.0 seconds [facility] Specimen Blood Performing Organization Address [facility] Phone Number [address] [address] [place] Hemoglobin and hematocrit (04/17/2019 12:27 AM MEDICINE WORKER)Only the most recent of2 resultswithin the time period is included. Hemoglobin 7.7 (L) 13.7 - 17.5 GM/DL [facility] Hematocrit 23.6 (L) 40.1 - 51.0 % [facility] Specimen Blood Narrative Performed At Accountant Property ID - [id number] [facility] Performing Organization Address [facility] Phone Number [address] [address] CENTER Prepare plasma (04/16/2019 11:54 PM MEDICINE WORKER) Unit ABO A Pos [place] UNIT NUMBER [id number] SAFETRACE TX Status TX_TIMEINCHART [facility] Blood Bank Product FFP [place] PRODUCT CODE [id number] [place] Specimen Blood Performing Organization Address [facility] Phone Number [place] Prepare cryoprecipitate (04/16/2019 11:54 PM MEDICINE WORKER) Unit ABO A Pos [place] UNIT NUMBER [id number] SAFETRACE TX Status TX_TIMEINCHART [facility] Blood Bank Product CRYOPRECIPITATE SAF[place] PRODUCT CODE [id number] [place] Specimen Blood Performing Organization Address [facility] Phone Number [place] PERIPHERAL VASCULAR REPORT - SCAN (04/16/2019 9:23 PM MEDICINE WORKER) Narrative Performed At This result has an attachment that is no t available. Calcium, Ionized (04/16/2019 3:28 AM MEDICINE WORKER)Only the most recent of6 resultswithin the time period is included. Calcium, Ion 1.09 (L) 1.12 - 1.27 mmol/L [facility] pH, Blood 7.44 [facility] Specimen Blood Performing Organization Address [facility] Phone Number [facility] [address] [place] [address] CENTER Central Line (04/15/2019 5:48 PM MEDICINE WORKER) Narrative Performed At Enoch Chung NP [...] verify the correct patient, procedure, equipmen t, support engineer and site/side marked as required. Indications: vascular [...] Venous doppler arm, left (04/15/2019 11:30 AM MEDICINE WORKER) [facility] Fraction [facility] ECHO HEAR TLAB [facility] Specimen Impressions Performed At [facility] ECHO HEARTLAB [facility] Left Impression 1. There is total [...] Upper Extremities Veins SLE ECHO HEARTLAB [facility] Demographics Patient Name JOHN VERGARA Date of Study04/15/2019 [id number] Visit Number [id number] Gender Male Accession Number [id number] Date of Birth1955 [facility] Room [id number] PhysicianTANIA Mccracken SonographerAidee Ruggiero, RVTInterpreting Alyssa Cabrera Procedure Type [...] External Ris In - 04/16/2019 10:57 AM MEDICINE WORKER PV LAB - Upper Extremities Veins Demographics Patient Name JOHN VERGARA ate of Study 04/15/2019 A Snackr 63 Visit Number [id number] G amalia Male Accession Number [id number] D ate of 1955 Referring Alicia ledezma Number [id number] Physician Nawaf, TANIA Sweep Press Operator Aidee Ruggiero, RVT I nterpreting Pearl [...] are measured in cm Performing Organization Address City/State/[facility] Phone Number [facility] ECHO HEARTLAB [facility] Thromboelastograph (TEG) (04/15/2019 11:28 AM MEDICINE WORKER) TEG Activated Clotting Time 5.0 4.0 - 7.0 minutes [facility] TEG Fibrinogen Activity 75.9 (H) 61.0 - 73.0 degrees [facility] TEG Platelet Aggregation 69.6 (H) 55.0 - 65.0 MM [facility] TEG Fibrinolysis 0.1 0.0 - 5.0 % [facility] TEG-H Activated Clotting Time 5.1 4.0 - 7.0 minutes [facility] TEG-H Fibrinogen Activity 76.0 (H) 61.0 - 73.0 degrees I [facility] TEG-H Platelet Aggregation 65.7 (H) 55.0 - 65.0 [facility] Fibrinolysis 4.1 0.0 - 5.0 % [facility] Specimen Blood Performing Organization Address City/[facility]/Zipcode Phone Number [facility] [address] [place] [address] [place] Transfuse plasma (04/15/2019 11:03 AM MEDICINE WORKER)Only the most recent of2 resultswithin the time period is included.Transfuse cryoprecipitate (04/15/2019 9:22 AM MEDICINE WORKER) Only the most recent of2 resultswithin the time period is included.Lactic Acid, Arterial (04/15/2019 4:05 AM MEDICINE WORKER) Lactate, Art 1.2 0.5 - 2.2 mmol/L [facility] Specimen Blood, Arterial Narrative Performed At Accountant Property ANGELI Wallace [facility] Performing Organization Address City/State/Zipcode Phone Number [facility] [address] [place] [address] [place] PT/aPTT (04/15/2019 1:58 AM MEDICINE WORKER)Only the most recent of4 resultswithin the time period is included. Protime 19.8 (H) 11.9 - 14.2 seconds [facility] INR 1.7 <=5.9 [facility] PTT 41.1 (H) 22.5 - 36.0 seconds [facility] Specimen Blood Narrative Performed At Effective 07/24/2018: PT Reference Range [facility] Change New: 11.9-14.2Previous: 11.7-14.7 RECOMMENDED COUMADIN/WARFARIN INR THERAPY RANGES STANDARD DOSE: 2.0-3.0Includes: PROPHYLAXIS for venous thrombosis, systemic embolization; TREATMENT for venous thrombosis and/or pulmonary embolus. HIGH RISK: Target INR is 2.5-3.5 for patients wiht mechanical heart valves. Performing Organization Address City/[facility] Phone Number [address] [address] CENTER Fibrinogen (04/15/2019 1:58 AM MEDICINE WORKER)Only the most recent of2 resultswithin the time period is included. Fibrinogen 177 (L) 225 - 434 mg/dl [facility] Specimen Blood Performing Organization Address [facility] Phone Number [address] [address] C[place] Cortisol (04/15/2019 12:07 AM MEDICINE WORKER) Cortisol, Total 10.6 3.7 - 19.4 ug/dL [facility] Specimen Blood Narrative Performed At Accountant Property ID - BS [facility] Performing Organization Address [facility] Phone Number [address] [address] C[place] AFB culture + smear (non-sputum) (04/14/2019 6:48 PM MEDICINE WORKER)Only the most recent of10 resultswithin the time period is included. Result No acid-fast bacilli isolated in [facility] 42 days CENTER AFB Smear No acid fast bacilli seen [facility] Specimen BAL Performing Organization Address [facility] Phone Number [address] [address] C[place] Fungus culture + smear (04/14/2019 6:48 PM MEDICINE WORKER)Only the most recent of11 resultswithin the time period is included. Result <1+ Ana albicans (A) [facility] Fungus Smear No fungi seen [facility] Specimen BAL Performing Organization Address [facility]/Zipcode Phone Number [address] [address] C[place] SPIN/CONCENTRATION CHARGE (04/14/2019 6:48 PM MEDICINE WORKER)Only the most recent of4 resultswithin the time period is included. Concentration charged Done [facility] Specimen BAL Performing Organization Address [facility] Phone Number [address] [address] [place] Bronchial culture + gram stain (04/14/2019 6:48 PM MEDICINE WORKER)Only the most recent of3 resultswithin the time period is included. Result No growth [facility] Gram Stain Result 1+ WBCs [facility] Gram Stain Result No organisms seen [facility] Specimen BAL Performing Organization Address [facility] Phone Number [address] [address] [place] Potassium-Stat Lab (04/14/2019 5:49 PM MEDICINE WORKER)Only the most recent of3 results within the time period is included. Potassium 3.4 (L) 3.6 - 5.5 meq/L [facility] Specimen Blood, Arterial Performing Organization Address [facility] Phone Number [address] [address] [place] Sodium Na-Stat Lab (04/14/2019 5:49 PM MEDICINE WORKER)Only the most recent of3 results within the time period is included. Sodium 138 135 - 148 meq/L [facility] Specimen Blood, Arterial Performing Organization Address City/[facility] Phone Number [address] [address] [place] Glucose-Stat Lab (04/14/2019 5:49 PM MEDICINE WORKER)Only the most recent of3 resultswithin the time period is included. Glucose 100 70 - 110 mg/dL [facility] Specimen Blood, Arterial Performing Organization Address City/[facility] Phone Number [address] [phone] [place] HGB/HCT (H&H)-Stat Lab (04/14/2019 5:49 PM MEDICINE WORKER)Only the most recent of3 resultswithin the time period is included. Hemoglobin 9.0 (L) 13.0 - 16.8 g/dL [facility] Hematocrit 26.0 (L) 40.0 - 50.0 % [facility] Specimen Blood, Arterial Performing Organization Address [facility] Phone Number [address] [address] [place] Anaerobic culture (04/14/2019 5:15 PM MEDICINE WORKER)Only the most recent of5 results within the time period is included. Result No anaerobes isolated [facility] Specimen Tissue Performing Organization Address [facility] Phone Number [address] [phone] [place] Surgically obtained culture + gram stain (04/14/2019 5:15 PM MEDICINE WORKER)Only the most recent of5 resultswithin the time period is included. Result No growth [facility] Gram Stain Result 1+ WBCs [facility] Gram Stain Result No organisms seen [facility] Specimen Tissue Performing Organization Address [facility] Phone Number [address] [address] [place] Tissue Exam (04/14/2019 4:54 PM MEDICINE WORKER) Case Report Surgical Pathology Report Case: [id number] [facility] Authorizing Provider:Fernando Esquivel MD Collected: 04/14/2019 1654 [facility] Ordering Location: [facility] BA Received:04/15/2019 0933 PERIOPERATIVE SERVICES Pathologist: Gay Puentes MD Specimens: A) - Pleura, PARIETAL PLEURA B) - Lung, Right Lower Lobe, Right lower lobe C) - Lung, Right Middle Lobe, Right middle lobe D) - Lung, Right Upper Lobe, Right upper lobe DIAGNOSIS [facility] A. PLEURA, RIGHT, PARIETAL PLEURA, DECORTICATION : [facility] - CHRONIC FIBROSING PLEURITIS. - NEGATIVE [...] Signing Pathologist Direct Phone Line: CPT Code(s) 60031 X 4 [facility] CLINICAL HISTORY Empyema, right. [facility] SPECIMEN SOURCE A. Pleura. B. Lung, right [facility] lower lobe. C. Lung, right [facility] middle lobe. D. Lung, right upper lobe GROSS DESCRIPTION A. Received in formalin labe led with the patient's name, accession number and "parietal pleura" is a 1.5 x 0.8 x 0.1 cm portion of devlin- pink fibromembranous tissue, which is entirely submitted in A1. [facility] B. Received in formalin labe led [...] submitted in D1. PA/ew MICROSCOPIC DESCRIPTION Performed. [facility] ER Gross assessment was [facility] performed at [place], Department of [facility] Pathology, [address] [place] [address], Technical component was [facility] performed at [place], Department of [facility] Pathology, [address] [place] [address], Professional component [facility] was performed at [place], Department of [facility] Pathology, [address] [place] [address], Specimen Tissue Tissue - Structure of lower lobe of righ t lung (body structure) Tissue - Structure of middle lobe of rig ht lung (body structure) Tissue - Structure of upper lobe of righ t lung (body structure) Performing Organization Address City/State/Zipcode Phone Number [address] [address] [place] Cytology (04/14/2019 3:48 PM MEDICINE WORKER)Only the most recent of2 resultswithin the time period is included. Case Report Medical Cytology Report Case: [id number] [facility] Authorizing Provider:Fernando Esquivel MD Collected: 04/14/2019 1548 [facility] Ordering Location: [facility] Received:04/15/2019 0913 PERIOPERATIVE SERVICES Pathologist: Sean Piedra MD Specimen:Pleural, Ri ght, Multi loculated pleural effusions DIAGNOSIS RIGHT PLEURAL FLUID (CYTOSPINS): [facility] - NEGATIVE FOR MALIGNANCY [facility] PREDOMINANTLY BLOOD Signing Pathologist Direct Phone Line: CPT Code(s) 21963 [facility]TH [facility] ER CLINICAL DATA Right multi loculated [facility] pleural effusions, [facility] pneumonia, acute respiratory failure SPECIMEN SOURCE RIGHT PLEURAL FLUID [facility] ER GROSS DESCRIPTION 750 mls bloody; 4 cytospins CH I [facility] Collected: [id number] [facility] MEDICAL CE NTER Received: [id number] STATEMENT OF ADEQUACY Satisfactory [facility] ER Gross assessment was [facility] C HI [facility] performed at [place], Department of [facility] Pathology, [address] [place] [address], Technical component was [facility] performed at [place], Department of [facility] Pathology, [address] [place] [address], Professional component was [facility] performed at [place], Department of [facility] Pathology, [address] [place] [address], Specimen Body Fluid Narrative Performed At This result has an attachment that is no t available. Performing Organization Address City/[facility] Phone Number [address] [address] CENTER Type and screen, automated (04/14/2019 1:01 AM MEDICINE WORKER)Only the most recent of2 resultswithin the time period is included. ABO/RH AUTOMATED (BEAKER) A NEGATIVE [facility] Ab Scrn NEGATIVE [facility] Specimen Blood Performing Organization Address City/[facility]/Zipcode Phone Number [address] [address] Hepatic function panel (04/13/2019 4:39 AM MEDICINE WORKER)Only the most recent of3 results within the time period is included. Protein, Total 5.5 (L) 6.0 - 8.3 gm/dL [facility] Albumin 1.8 (L) 3.5 - 5.0 g/dL [facility] Total Bilirubin 1.1 0.2 - 1.2 mg/dL [facility] Bilirubin, Direct 0.7 (H) 0.1 - 0.5 mg/dL [facility] Alkaline Phosphatase 157 (H) 40 - 150 U/L [facility] AST 38 (H) 5 - 34 U/L [facility] ALT 34 6 - 55 U/L [facility] Specimen Blood Narrative Performed At Accountant Property ID - CHELSEY [facility] Performing Organization Address City/[facility]/Zipcode Phone Number [address] [address] [place] REPORT OF PROCEDURE - ENDOSCOPY URL (04/11/2019 10:15 AM MEDICINE WORKER) Narrative Performed At This result has an attachment that is no t available. Body fluid culture + gram stain (04/09/2019 12:10 PM MEDICINE WORKER)Only the most recent of 4 resultswithin the time period is included. Result No growth [facility] Gram Stain Result <1+ WBCs [facility] Gram Stain Result <1+ gram negative rods [facility] Specimen Body Fluid Performing Organization Address City/State/Zipcode Phone Number [address] [address] [place] XR abdomen / KUB 1 view (04/04/2019 3:58 PM MEDICINE WORKER)Only the most recent of4 resultswithin the time period is included. Specimen Narrative Performed At FINAL REPORT [facility] Abdomen date 04/04/2019 Comment:Frontal view of the abdomen demonstrates a feeding tube present with tip noted in the descending duodenum. Signed: Tomasa Foss MD Report Verified Date/Time:04/04/2019 18:03:16 Reading Location: [facility] [address] [place] [address] Procedure Note Interface, External Ris In - 04/04/2019 6:05 PM MEDICINE WORKER FINAL REPORT Abdomen date 04/04/2019 Comment: Frontal view of the abdomen de monstrates a feeding tube present with tip noted in the descending duodenum. Signed: Tomasa Foss MD Report Verified Date/Time: 04/04/2019 1 8:03:16 Reading Location: [facility] C013W [facility] Performing Organization Address City/[facility]/Zipcode Phone Number GE [facility] Troponin I (03/31/2019 1:59 PM MEDICINE WORKER)Only the most recent of11 resultswithin the time period is included. Troponin I 0.20 (HH) 0.00 - 0.03 ng/mL [facility] Specimen Blood Narrative Performed At Troponin I (TnI) levels must be interpreted [facility] in the context of the presenting symptoms and the clinical findings. Elevated TnI levels indicate myocardial damage, but are not specific for ischemic heart disease. Elevated TnI levels are seen in patients with other cardiac conditions (including myocarditis and congestive heart failure), and slight TnI elevations occur in patients with other conditions, including sepsis, renal failure, acidosis, acute neurological disease, and persistent tachyarrhythmia. Accountant Property ID - SONIA Lloyd Performing Organization Address [facility] Phone Number [address] [address] [place] Lactic acid, venous (03/31/2019 1:59 PM MEDICINE WORKER)Only the most recent of5 results within the time period is included. Lactate, Venous 1.7 0.5 - 2.2 mmol/L [facility] Specimen Blood Narrative Performed At Accountant Property ID - SONIA Lloyd [facility] Performing Organization Address [facility]/Zipcode Phone Number [address] [address] [address] chest for pulmonary embolus (03/30/2019 11:54 PM MEDICINE WORKER) Specimen Narrative Performed At FINAL REPORT [...] exam was performed according to the [facility] dose optimization program which includes [...] External Ris In - 03/31/2019 12:29 AM MEDICINE WORKER FINAL REPORT Comparison: CT chest dated 03/17/2019 Indication: 53-year-old male with acute chest pain, hypoxia, and shortness of breath clinically suspiciou s for acute pulmonary embolism. Technique: Precontrast axial images were obtained a t pulmonary trunk level for the purpose of monitoring subsequent IV contrast. Postcontrast axial images of the chest were obtained from a glod the arch level to the lower chest at maximum enhancement of th e pulmonary artery. This exam was performed according to the [facility] dose optimization program which includes [...] 0:25:44 Performing Organization Address City/State/Zipcode Phone Number AMS-Qi CT brain without IV contrast (03/30/2019 11:54 PM MEDICINE WORKER)Only the most recent of2 resultswithin the time period is included. Specimen Narrative Performed At FINAL REPORT AMS-Qi EXAM: CT, BRAIN, WITHOUT CONTRAST CLINICAL INDICATION: [...] External Ris In - 03/31/2019 4:22 AM MEDICINE WORKER FINAL REPORT EXAM: CT, BRAIN, WITHOUT [...] 4:20:24 Performing Organization Address City/State/Zipcode Phone Number [facility] POCT-HEMATOCRIT (03/30/2019 8:53 PM MEDICINE WORKER) POC-Hematocrit 28 (L)Comment: TESTED AT 40 - 50 % [address] [place] [address] Specimen Blood Performing Organization Address City/[facility]/Zipcode Phone Number [address] [address] [place] POCT-HEMOGLOBIN (03/30/2019 8:53 PM MEDICINE WORKER) POC-Hemoglobin 9.5 (L)Comment: TESTED AT 13.0 - 16.8 g/dL [address] [address]MYCRN[place] AT [address] [address] Specimen Blood Performing Organization Address City/[facility]/Zipcode Phone Number [address] [address] [place] POCT-GLUCOSE (03/30/2019 8:53 PM MEDICINE WORKER) POC-Glucose 249 (H)Comment: TESTED AT 70 - 110 mg/dL [address] [address] Specimen Blood Performing Organization Address [facility] Phone Number [address] [address] [place] POC-Sodium (03/30/2019 8:53 PM MEDICINE WORKER) POC-Sodium 147Comment: TESTED AT [facility] 135 - 148 meq/L [address] [address] Specimen Blood Performing Organization Address City/[facility]/Zipcode Phone Number [address] [address] CENTER POC-Potassium (03/30/2019 8:53 PM MEDICINE WORKER) POC-Potassium 4.1Comment: TESTED AT [facility] 3.6 - 5.5 meq/L [address] [address] Specimen Blood Performing Organization Address City/State/Zipcode Phone Number [address] [phone] [place] POC-Calcium ionized (03/30/2019 8:53 PM MEDICINE WORKER) POC-Calcium Ionized 1.63 ()Comment: 1.12 - 1.27 mmol/L [facility] TESTED AT [address] [address] Specimen Blood Performing Organization Address City/[facility]/Zipcode Phone Number [address] [phone] [place] POC-Blood gases, arterial (03/30/2019 8:53 PM MEDICINE WORKER) Temp. Celsius-POC 36.1 [facility] FIO2-POC 100Comment: TESTED AT [address] [address] pH, Arterial-POC 7.320 (L) 7.350 - 7.450 [facility] PCO2, Arterial-POC 61.8 (H) 35.0 - 45.0 mm Hg [facility] PO2, Arterial-POC 409.0 (H) 80.0 - 90.0 mm Hg [facility] SO2, Arterial-POC 100.0 (H) 96.0 - 97.0 % [facility] HCO3, Arterilal-POC 32.2 (H) 21.0 - 29.0 meq/L [facility] BE, Arterial-POC 6.0 (H) -2.0 - 3.0 meq/L [facility] Specimen Blood Performing Organization Address City/State/Zipcode Phone Number [address] [address] [place] ECHOCARDIOGRAM REPORT - SCAN (03/26/2019 9:11 PM MEDICINE WORKER) Narrative Performed At This result has an attachment that is no t available. IR Drainage Catheter Change (03/26/2019 7:30 PM MEDICINE WORKER) Specimen Narrative Performed At FINAL REPORT [facility] Fluoroscopic guided replacement of a right chest tube. History: Patient's right chest tube has been retracted and is poorly draining.. Modality: Fluoroscopy Sedation: None Anesthesia:Two percent Lidocaine without epinephrine. Approach:Existing right chest tube Estimated blood loss:< 5 cc. Specimen: None. grapple skidder operator: Nato Dang MD. Retail Interior Designer: [facility]. Fluoroscopy Time: 0.5 min. Reference Air Kerma [...] ove r the guidewire. A new 8.5 Indonesian Cook multipurpose drainage cathet er was advanced [...] MD Report Verified Date/Time:03/28/2019 14:57:26 Reading Location: [place] [id number] Angio Body Reading Room Procedure Note Interface, External Ris In - 03/28/2019 2:59 PM MEDICINE WORKER FINAL REPORT Fluoroscopic guided replacement of a ri ght chest tube. History: Patient's right chest tube has been retracted and is poorly draining.. Modality: Fluoroscopy Sedation: None Anesthesia: Two percent Lidocaine witho ut epinephrine. Approach: Existing right chest tube Estimated blood loss: < 5 cc. Specimen: None. grapple skidder operator: Nato Dang MD. Retail Interior Designer: Lauren. Fluoroscopy Time: 0.5 min. Reference Air [...] ove r the guidewire. A new 8.5 Indonesian Cook multipurpose drainage cathet er was advanced [...] Verified Date/Time: 03/28/2019 1 4:57:26 Reading Location: [facility] P048 Angio Body Reading Room Performing Organization Address City/State/Zipcode Phone Number AMS-Qi 2D Echo W/Doppler(CW/PW/Color) (03/25/2019 7:04 PM MEDICINE WORKER) Ejection Fraction [facility] ECHO HEAR TLAB MKCKESSON CPACS Specimen Narrative Performed At Transthoracic Echocardiography Report (T TE) [facility] ECHO HEARTLAB MKCKESSON [facility] Demographics Patient JOHN Valdes Date of Study03/25/2019 Gender Male Visit [id number] Race Luis Carlos tran [id number] Number Date of 1955 Referring PhysicianJerald Christensen [...] External Ris In - 03/26/2019 8:35 AM MEDICINE WORKER Transthoracic Echocardiography Report (TTE) Demographics Patient Name JOHN VERGARA Date of Study 03/25/2019 Gender Male Visit Number [id number] Race Unknown Room [place] [address] Number Date of 1955 Referrin g Physician [...] Performing Organization Address City/State/Zipcode Phone Number [facility] [employer] CKESSON [facility] CT chest without IV contrast (03/25/2019 6:00 PM MEDICINE WORKER)Only the most recent of2 resultswithin the time period is included. Specimen Narrative Performed At FINAL REPORT AMS-Qi CT of the Chest, abdomen and pelvis [...] MD Report Verified Date/Time:03/25/2019 18:26:29 Reading Location: [facility] C013Y CT Body R eading Room Procedure Note Interface, External Ris In - 03/25/2019 6:29 PM MEDICINE WORKER FINAL REPORT CT of the Chest, [...] Verified Date/Time: 03/25/2019 1 8:26:29 Reading Location: [facility] C013Y CT Body R eading Room Performing Organization Address City/State/Zipcode Phone Number AMS-Qi CT abdomen/pelvis without iv contrast (03/25/2019 6:00 PM MEDICINE WORKER) Specimen Narrative Performed At FINAL REPORT AMS-Qi CT of the Chest, abdomen and pelvis [...] MD Report Verified Date/Time:03/25/2019 18:26:29 Reading Location: [facility] C013Y CT Body R [facility] Room Procedure Note Interface, External Ris In - 03/25/2019 6:29 PM MEDICINE WORKER FINAL REPORT CT of the Chest, [...] Verified Date/Time: 03/25/2019 1 8:26:29 Reading Location: [facility] B1 C013Y CT Body R eading Room Performing Organization Address City/State/Zipcode Phone Number GE [facility] Urinalysis w/Microscopic + Reflex to Culture (03/25/2019 9:08 AM MEDICINE WORKER)Only the most recent of2 resultswithin the time period is included. Color, UA Yellow [facility] Clarity, UA Hazy [facility] Specific [place], UA 1.018 1.001 - 1.035 [facility] pH, UA 5.5 5.0 - 8.0 [facility] Protein, UA 50 mg/dL (A) Negative [facility] Glucose, UA Negative Negative [facility] Ketones, UA Negative Negative [facility] Bilirubin, UA Negative Negative [facility] Blood, UA Small (A) Negative [facility] Nitrite, UA Negative Negative [facility] Leukocytes, UA Large (A) Negative [facility] Urobilinogen, UA 6.0 (H) 0.2 - 1.0 mg/dL [facility] RBC, UA <1 /HPF [facility] WBC, UA 54 /HPF [facility] Bacteria, UA Few [facility] Mucus Few [facility] Squam Epithel, UA <1 /HPF [facility] Hyaline Casts, UA 1 /LPF [facility] Specimen Source [facility] Specimen Urine Narrative Performed At Accountant Property ID - [auto] [facility] Accountant Property ID - ramya Performing Organization Address City/State/Zipcode Phone Number [facility] [address] [place] [address] [place] Sputum Culture + Gram Stain (03/25/2019 9:08 AM MEDICINE WORKER)Only the most recent of2 resultswithin the time period is included. Result See comment [facility] Gram Stain Result 4+ WBCs [facility] Gram Stain Result 0-5 epithelial cells [facility] Gram Stain Result No organisms seen [facility] Specimen Sputum Narrative Performed At 2+ Yeast [facility] No Normal respiratory rigo present Performing Organization Address City/State/Zipcode Phone Number [address] [address] [place] Urine culture (03/25/2019 9:08 AM MEDICINE WORKER)Only the most recent of2 resultswithin the time period is included. Result No growth [facility] Specimen Urine Performing Organization Address City/State/Zipcode Phone Number [facility] [address] [place] [address] CENTER EEG EXTENDED MONITORING 40 - 60 MINUTES (03/24/2019 11:23 AM MEDICINE WORKER) Specimen Narrative Performed At Date(s) of EE03/24/2019 GE RIS DATE OF REPORT:03/24/2019 ACC: [id number] EEG Number: [id number] Test Location: Inpatient ICU Start time: 03/24/2019 10:42 Stop time: 03/24/2019 11:23 ICD-10: R56.9 CPT Code: 55341 HISTORY: 63 y.o. male with hypertens ion, diastolic heart failure, chronic kidney disease who was transferr ed to [facility] for effusions and [...] aftermath of ear lier seizure activity, other AUTO PARTS MANAGER insult, or toxic-metabolic derangeme nts. An EEG without epileptiform discharges does not exclude the possibili ty of epilepsy. If the clinical suspicion of epilepsy re spencer, consider additional EEG recordings. Nando Metz MD Neurophysiology Fellow Elia Martinez M.D., FACNS, FAAN, CALIN Syed Professor of Neurology, [facility] Medicine Director, [facility]psy [facility] Head, [facility] [place], [place] Procedure Note Interface, External Ris In - 03/24/2019 12:32 PM MEDICINE WORKER Date(s) of EE03/24/2019 DATE OF REPORT: 03/24/2019 ACC: [id number] EEG Number: [id number] Test Location: Inpatient ICU Start time: 03/24/2019 10:42 Stop time: 03/24/2019 11:23 ICD-10: R56.9 CPT Code: 13568 HISTORY: 63 y.o. male with hypertensio n, diastolic heart failure, chronic kidney disease who was transferr ed to [facility] for effusions and [...] aftermath of ear lier seizure activity, other AUTO PARTS MANAGER insult, or toxic-metabolic derangeme nts. An EEG without epileptiform discharges does not exclude the possibility of epilepsy. If the clinical suspicion of epilepsy re spencer, consider additional EEG recordings. Nando Metz MD Neurophysiology Fellow Elia Martinez M.D., FACNS, FAAN, CALIN S Professor of Neurology, [facility] Director, [facility] Epilepsy Center Head, [facility] [place], [place] Performing Organization Address City/State/Zipcode Phone Number GE [facility] Manual Differential (03/23/2019 5:58 AM MEDICINE WORKER)Only the most recent of2 results within the time period is included. % Neutros 93 % [facility] % Lymphs 4 % [facility] % Monos 2 % [facility] % Atypical Lymphs 1 (H) 0 - 0 % [facility] # Neutros 22.69 (H) 1.78 - 5.38 K/ul [facility] # Lymphs 0.98 (L) 1.32 - 3.57 K/ul [facility] # Monos 0.49 0.30 - 0.82 K/uL [facility] # Atypical Lymphs 0.24 (H) 0.00 - 0.00 K/uL [facility] Total Counted 100 [facility] WBC Morphology [facility] Platelet Morphology Normal [facility] [place] An[facility]ocytosis 1+ few [facility] Poikilocytes 1+ few [facility] Ovalocytes 1+ few [facility] Rei Cells 1+ few [facility] Artifact [facility] Platelet Conc Adequate [facility] Specimen Blood Narrative Performed At Accountant Property ID - Mariela Overholt [facility] User comments: Slide comments: Performing Organization Address City/State/[facility] Phone Number [address] [address] [place] Body fluid cell count with differential (03/22/2019 2:37 PM MEDICINE WORKER)Only the most recent of3 resultswithin the time period is included. Appearance Bloody (A) Clear [facility] Color Red (A) Colorless, Straw [facility] RBCs 88,000 (H) <=1 /cu mm [facility] Adjusted WBC Count 36,367 (H) <=5 /cu mm [facility] Lining Cells 364 (H) <=1 /cu mm [facility] % Segs 85 % [facility] % Lymphs 4 % [facility] % Monos 10 % [facility] % Eos 1 % [facility] % Baso 0 % [facility] Container Body Fluid EDTA Tube [facility] Specimen Body Fluid Performing Organization Address City/State/Zipcode Phone Number [facility] [address] [place] [address] CENTER Triglycerides, Pleural Fluid (03/22/2019 2:36 PM MEDICINE WORKER)Only the most recent of3 resultswithin the time period is included. TRIGLYCERIDES, PLEURAL 35 See Note: mg/dL [facility] Comment: INCORPORATED Reference Range: CHYLOUS: >110 NONCHYLOUS:<50 SAMPLE SLIGHTLY LIPEMIC. SAMPLE MODERATELY HEMOLYZED. Specimen Body Fluid Narrative Performed At Performing Lab [facility] [employer] [employer] [address] [place] [address] Alia Luna MD, PhD, SOTO Performing Organization Address [facility] Phone Number [facility] [place], [place] [address] INCORPORATED [address] [employer] Protein, Total, Pleural Fluid (03/22/2019 2:36 PM MEDICINE WORKER)Only the most recent of3 resultswithin the time period is included. PROTEIN, TOTAL, PLEURAL FLUID 2.6 [facility] Specimen Body Fluid Performing Organization Address [facility] [place] [address] INCOR[place]ATED [address] [facility] Lactate Dehydrogenase (LD), Pleural Fluid (03/22/2019 2:36 PM MEDICINE WORKER)Only the most recent of3 resultswithin the [...] At Performing Lab [facility] [employer] [address] [place] [address] Alia Luna MD, PhD, SOTO Performing Organization Address [facility] Phone Number [employer] [place] [address] INCORPORATED [address] [facility] Glucose Pleural Fluid (03/22/2019 2:36 PM MEDICINE WORKER)Only the most recent of3 results within the time period is included. Glucose, Pleural Fluid 29 mg/dL [facility] Comment: INCORPORATED SAMPLE SLIGHTLY LIPEMIC. SAMPLE MODERATELY HEMOLYZED. Reference range approximates that found in serum . Specimen Body Fluid Narrative Performed At Performing Lab [facility] [employer] [address] [address] [address] [place] [address] Alia Luna MD, PhD, SOTO Performing Organization Address [facility] Phone Number [facility] [place], [place] [address] [address] [facility] pH, body fluid (03/22/2019 2:36 PM MEDICINE WORKER)Only the most recent of3 resultswithin the time period is included. pH, Body Fluid 7.5 [facility] [employer] PH FLUID TYPE Body fluid [facility] Comment: Reference range: Reference ranges have not been established on th is type of fluid for this test. Specimen Body Fluid Narrative Performed At Performing Lab [facility] [facility] *RYLEY [employer] [facility], [address] [place] [address] Dr. Guillen [place] Pearl Kent MD, PhD Performing Organization Address [facility] Phone Number [employer] [place] [address] [address] [facility] Adenosine Deaminase, Fluid (03/22/2019 2:36 PM MEDICINE WORKER)Only the most recent of2 resultswithin the [...] of this test have been determined by via[address] [place], [place].This test s hould not be used for diagnosis without confirmation b y other medically established means. Specimen Body Fluid Narrative Performed At Performing Lab [facility] 15 [employer] [place], [address] [facility] JOHANA Morse Pearl Kent MD, PhD Performing Organization Address City/State/Zipcode Phone Number [facility] [employer] [place], [place], [place] [address] [address] [facility] Albumin Pleural Fluid (03/22/2019 2:35 PM MEDICINE WORKER)Only the most recent of2 results within the time period is included. Albumin, Pleural Fluid 0.8 [facility] Specimen Body Fluid Performing Organization Address [facility] Phone Number [facility], [place] [address] [address] [facility] Legionella culture (03/22/2019 2:32 PM MEDICINE WORKER) Result No Legionella species isolated C HI [facility] Specimen BAL Performing Organization Address City/[facility]/Zipcode Phone Number [place] [phone] [place] [address] CENTER US drainage chest with tube insertion (03/21/2019 6:25 PM MEDICINE WORKER) Specimen Narrative Performed At FINAL REPORT [facility] Ultrasound guided insertion of bilatera l pigtail chest tube catheters. History: Bilateral loculated pleural effusions. Modality: Ultrasound Sedation: None Anesthesia:Two percent Lidocaine without epinephrine. Approach:Bilateral mid axillary line Estimated blood loss:< 5 cc. Specimen: Left bedside. grapple skidder operator: Nato Dang MD. Retail Interior Designer: None. Technique: Informed written consent was obtained. [...] a large loculated right pleural effusion. The [facility] axillary line was marked, prepped with [...] patient 's left chest and an 8 Indonesian skater pigtail drain was placed in a sim ilar fashion and connected to the atrium pleura. The patient tolerated the procedure well without evidence of immediate competition. Impression: Technically successful and uncomplicated placement of bilateral pigtail chest tubes under ultrasound guidance. Signed: Nato Dang MD Report Verified Date/Time:03/21/2019 19:48:47 Reading Location: [place] [address] Angio Body Reading Room Procedure Note Interface, External Ris In - 03/21/2019 7:50 PM MEDICINE WORKER FINAL REPORT Ultrasound guided insertion of bilatera l pigtail chest tube catheters. History: Bilateral loculated pleural eff usions. Modality: Ultrasound Sedation: None Anesthesia: Two percent Lidocaine witho ut epinephrine. Approach: Bilateral mid axillary line Estimated blood loss: < 5 cc. Specimen: Left bedside. grapple skidder operator: Nato Dang MD. Retail Interior Designer: None. Technique: Informed written consent was obtained. [...] a large loculated right pleural effusion. The [facility] axillary line was marked, prepped with [...] patient 's left chest and an 8 Indonesian skater pigtail drain was placed in a sim ilar fashion and connected to the atrium pleura. The patient tolerated the procedure well without evidence of immediate competition. Impression: Technically successful and uncomplicated placement of bilateral pigtail chest tubes under ultrasound es dance. Signed: Nato Dang MD Report Verified Date/Time: 03/21/2019 1 9:48:47 Reading Location: [facility] B1 P048 Angio Body Reading Room Performing Organization Address City/State/Zipcode Phone Number RIS Respiratory Panel [facility] (03/21/2019 8:50 AM MEDICINE WORKER) Human Metapneumovirus Not detected Not detected, [facility] Equ[employer]ocal [facility] Rhinovirus Not detected Not detected, [facility] [employer] [facility] Influenza A Not detected Not detected, [facility] [employer] [facility] INFLUENZA A (NO SUBTYPE) [facility] ER Influenza A subtype H1 [facility] Influenza A Subtype H3 [facility] Influenza A Subtype H1-2009 [facility] Influenza B Not detected Not detected, [facility] [employer] [facility] Respiratory Syncytial Virus Not detected Not detected, [facility] Equ[employer]ocal [facility] Parainfluenza Virus 1 Not detected Not detected, [facility] Equivocal [facility] Parainfluenza Virus 2 Not detected Not detected, [facility] Equ[employer]ocal [facility] Parainfluenza virus 3 Not detected Not detected, [facility] Equivocal [facility] Parainfluenza Virus 4 Not detected Not detected, [facility] Equivocal [facility] ER Adenovirus Not detected Not detected, [facility] [employer] [facility] ER Coronavirus 229E Not detected Not detected, [facility] Equ[employer]ocal [facility] Coronavirus HKU1 Not detected Not detected, [facility] Equ[employer]ocal [facility] Coronavirus NL63 Not detected Not detected, [facility] Equivocal [facility] ER Coronavirus OC43 Not detected Not detected, [facility] Equivocal [facility] ER Bordetella Pertussis Not detected Not detected, [facility] Equivocal [facility] Chlamydophila Pneumoniae Not detected Not detected, [facility] Equivocal [facility] Mycoplasma Pneumoniae Not detected Not detected, [facility] Equivocal [facility] Specimen Nasopharyngeal Narrative Performed At Other viruses and bacteria not targeted by [facility] this PCR panel cannot be excluded; therefore clinical correlation and follow up of serology, culture results, and other molecular studies is required. The results are not intended to be used as the sole means for clinical diagnosis or patient management decisions. This sample was tested at the [facility] Molecular Diagnostics Laboratory using the [employer] Film[employer] Respiratory Panel. It is FDA cleared [...] A and/or Influenza B. Performing Organization Address City/[facility] Phone Number [address] [address] CENTER Reticulocyte count (03/21/2019 8:50 AM MEDICINE WORKER) % Retic 1.9 (H) 0.5 - 1.8 % [facility] Specimen Blood Narrative Performed At Accountant Property ID - [id number] [facility] Performing Organization Address [facility] Phone Number [address] [phone] [place] Rapid Influenza A&B Screen (03/21/2019 8:50 AM MEDICINE WORKER) Rapid Influenza A Antigen Negative Negative, Inconclusive [facility] Rapid influenza B Antigen Negative Negative, Inconclusive [facility] Specimen Nasal Performing Organization Address [facility]/Zipcode Phone Number [address] [address] [place] Vitamin B12 and Folate (03/21/2019 8:49 AM MEDICINE WORKER)Only the most recent of2 results within the time period is included. Vitamin B12 >2000 (H) 213 - 816 pg/mL [facility] Folate 17.3 >=7.0 ng/mL [facility] Specimen Blood Narrative Performed At Accountant Property ID - [facility] Performing Organization Address [facility] Phone Number [address] [address] [place] Iron, TIBC, % sat. (without ferritin) (03/21/2019 8:49 AM MEDICINE WORKER) Iron 39.0 (L) 40.0 - 160.0 ug/dL [facility] TIBC 113 (L) 250 - 450 ug/dL [facility] Iron % Saturation 35 20 - 55 % [facility] Specimen Blood Narrative Performed At Accountant Property ID - [facility] Performing Organization Address City/[facility]/Zipcode Phone Number [address] [address] [place] Lactate dehydrogenase (LDH) (03/21/2019 8:49 AM MEDICINE WORKER) LDH 300 (H) 125 - 220 U/L [facility] Specimen Blood Narrative Performed At Accountant Property ID - [facility] Performing Organization Address City/State/Zipcode Phone Number [place] [phone] [place], [place] [phone] CENTER Ferritin (03/21/2019 8:49 AM MEDICINE WORKER) Ferritin 1,076 (H) 5 - 275 ng/mL [facility] Specimen Blood Narrative Performed At Accountant Property ID - ELISSA Wallace [facility] Performing Organization Address City/[facility]/Zipcode Phone Number [place] [phone] [place] [address] [place] ECHOCARDIOGRAM REPORT - SCAN (03/20/2019 9:22 PM MEDICINE WORKER) Narrative Performed At This result has an attachment that is no t available. 2D Echo W/Doppler(CW/PW/Color) (03/20/2019 11:05 AM MEDICINE WORKER) Ejection Fraction [facility] ECHO HEAR TLAB my[facility]LA [facility] Specimen Narrative Performed At Transthoracic Echocardiography Report (T TE) [facility] ECHO [facility]ARTLAB [facility] Patient JOHN Valdes Date of Study03/20/2019 Gender Male Visit [id number] Race Unk nown [id number] Number Date of 1955 Referring Physician Age [...] severity assessment is unreliable . Aortic Valve Vaxc-te-tgyzsktr AoV cusp calcification. Mi ld aortic stenosis. [...] External Ris In - 03/20/2019 3:29 PM MEDICINE WORKER Transthoracic Echocardiography Report (TTE) Demographics Patient Name JOHN VERGARA Date of Study 03/20/2019 Gender Male Visit Number [id number] Race Unknown Room Num [facility] 7102 Number Date of 1955 Eileen perdomo Physician Age 63 year(s) Sonograp her Gabrielle Melhem RDCS Interpre dyang Ziyad Bentley MD Physicia n Procedure Type [...] severity assessment is unreliable . Aortic Valve Lyws-hz-caolxuus AoV cusp calcification. Mild aortic sten osis. [...] T CI: 3.5 l/min/m^2 Performing Organization Address City/[facility] Phone Number [facility] ECHO HEARTLAB MKCKESSON CPACS ABORH, manual (03/20/2019 5:48 AM MEDICINE WORKER) ABO Grouping A [facility] Rh Factor NEG [facility] Specimen Blood Performing Organization Address [facility] Hospital[facility]n Phone Number [address] [address] TSH/Free T4 If Indicated (03/20/2019 3:00 AM MEDICINE WORKER)Only the most recent of3 resultswithin the time period is included. TSH 3.06 0.35 - 4.94 uIU/mL [facility] Specimen Blood Narrative Performed At Accountant Property ID - BS [facility] Performing Organization Address [facility] Phone Number [address] [address] CENTER Hemoglobin A1c (03/20/2019 3:00 AM MEDICINE WORKER)Only the most recent of2 resultswithin the time period is included. Hemoglobin A1C 6.2 (H) 4.3 - 6.1 % [facility] Specimen Blood Performing Organization Address [facility] Phone Number [address] [address] CENTER Lipid panel (03/20/2019 2:59 AM MEDICINE WORKER)Only the most recent of2 resultswithin the time period is included. Triglycerides 60Comment: Specimen slightly mg/dL [facility] Cholesterol 55Comment: Specimen slightly mg/dL [facility] hemolyzed [facility] HDL 15 mg/dL [facility] LDL Calculated 28 mg/dL [facility] Specimen Blood Narrative Performed At Triglyceride Reference Range: [facility] Low Risk <150 [id number] High Risk 200-499 Very High Risk>=500 Cholesterol Reference Range: Low Risk <200 [id number] High Risk>240 HDL Cholesterol Reference Range: Low Risk >=60 High Risk <40 LDL Cholesterol Reference Range: Optimal<100 Near [id number] Cfubrmjlbj662-240 [id number] Very High >=190 Accountant Property ID - SANDRA Richards Specimen slightly icteric Performing Organization Address City/State/Zipcode Phone Number [address] [address] [place] Strep pneumoniae antigen (03/20/2019 2:23 AM MEDICINE WORKER) Strep pneumoniae Presumptive negative Presumptive negative [facility] Antigen for pneumococcal for pneumococcal [facility] pneumonia - see comment pneumonia - see CENTER comment, Presumptive negative for pneumococcal meningitis - see comment Specimen Urine Narrative Performed At Presumptive negative for pneumococcal [facility] pneumonia, suggesting no current or recent pneumococcal infection. Infection due to S. pneumoniae cannot be ruled out since the antigen present in the sample may be below the detection limit of the test. Performing Organization Address City/[facility]/Zipcode Phone Number [address] [address] [place] Legionella antigen, urine (03/20/2019 2:23 AM MEDICINE WORKER) Legionella Urine Antigen Negative - see [facility] commentComment: Negative [facility] for L. pneumophila serogroup 1 antigen, suggesting no recent or current infection with this serogroup. Legionellosis cannot be ruled out since other serogroups and species may cause disease. Specimen Urine Performing Organization Address City/[facility]/Zipcode Phone Number [address] [address] [place] Protein, random urine (03/20/2019 2:22 AM MEDICINE WORKER) Protein, Urine 72 (H) 0 - 14 mg/dL [facility] Specimen Urine Narrative Performed At Accountant Property ID - BS [facility] Performing Organization Address [facility] Phone Number [address] [address] [place] Osmolality, urine (03/20/2019 2:22 AM MEDICINE WORKER) Osmolality, Ur 540 40-1,400 mOsm/kg [facility] Specimen Urine Performing Organization Address [facility] Phone Number [address] [address] [place] Chloride, random urine (03/20/2019 2:22 AM MEDICINE WORKER) ChlorideUr <20 meq/L [facility] Specimen Urine Narrative Performed At Reference Range: No Normals [facility] Accountant Property ID - BS Performing Organization Address [facility] Phone Number [address] [address] [place] ECHOCARDIOGRAM REPORT - SCAN (01/23/2019 9:21 PM MEDICINE WORKER) Narrative Performed At This result has an attachment that is no t available. MRA head without IV contrast (01/23/2019 8:01 AM MEDICINE WORKER) Specimen Narrative Performed At FINAL REPORT Existence Before Essence MRV Head CLINICAL HISTORY:Stroke, follow up concern for transverse sinus thrombosis, need MRV please TECHNIQUE: MRV of the head utilizing 2-D xwhu-ng-moeeku technique. COMPARISON: CTA 01/22/2019 FINDINGS: There is [...] External Ris In - 01/23/2019 8:29 AM MEDICINE WORKER FINAL REPORT MRV Head CLINICAL HISTORY:Stroke, follow up concern for transverse sinus thrombosis, need MRV please TECHNIQUE: MRV of the head utilizing 2-D ogir-bg-ahdslo technique. COMPARISON: CTA 01/22/2019 FINDINGS: There is [...] 8:26:36 Performing Organization Address City/State/Zipcode Phone Number Existence Before Essence MR brain without IV contrast (01/22/2019 6:11 PM MEDICINE WORKER) Specimen Narrative Performed At FINAL REPORT Existence Before Essence MR, BRAIN, WITHOUT CONTRAST INDICATION: Stroke, follow [...] External Ris In - 01/22/2019 7:28 PM MEDICINE WORKER FINAL REPORT MR, BRAIN, WITHOUT CONTRAST [...] 9:25:11 Performing Organization Address City/State/Zipcode Phone Number Existence Before Essence CTA carotid (01/22/2019 4:59 PM MEDICINE WORKER) Specimen Narrative Performed At FINAL REPORT [facility] CLINICAL HISTORY: Neuro deficit, acute, stroke suspected [...] External Ris In - 01/24/2019 2:56 PM MEDICINE WORKER FINAL REPORT CLINICAL HISTORY: Neuro deficit, [...] 9:16:06 Performing Organization Address City/State/Zipcode Phone Number [facility] CTA brain (01/22/2019 4:59 PM MEDICINE WORKER) Specimen Narrative Performed At FINAL REPORT [facility] CLINICAL HISTORY: Neuro deficit, acute, stroke suspected [...] External Ris In - 01/22/2019 7:18 PM MEDICINE WORKER FINAL REPORT CLINICAL HISTORY: Neuro deficit, [...] 9:16:06 Performing Organization Address City/State/Zipcode Phone Number [facility] Transthoracic 2D echo w/ doppler (cw/pw/color) (01/22/2019 1:16 PM MEDICINE WORKER) Ejection Fraction [facility] ECHO HEAR TLAB [facility] Specimen Narrative Performed At Transthoracic Echocardiography Report (T TE) [facility] ECHO HEARTLAB [facility] Demographics Patient JOHN Valdes Date of Study01/22/2019 Gender Male Visit [id number] Race Unknown [id number] Number Date of 1955 ReferringCHRISTOPHER GOODRICH Physician Age 63 year(s) SonographerJohnny [facility] Fredi Eller, NB, RDCS,RVT,RDMS Corporate Buyer Aliya YeeInterpreting Lyn Mike MD Cigypsyn Physician Procedure Type of Study TTE procedure:2DECHO [...] of 1.82 cm2. 4. Mild mitral regurgitation. 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 5. Aortic [...] severity assessment is unreliable . Aortic Valve Coof-hp-npuazgmq AoV cusp calcification. Mi ld aortic stenosis. Ao V area at rest by continuity equation is in the ra nge of 1.82 cm2. Preserved stroke volume . Mitral Valve Mild MV leaflet thickening. Se giles mitral annular and subvalvular ca lcification. Mi ld mitral regurgitation. Mi kg-ka-psgppqms mitral stenosis secondary to MAC. MV area [...] External Ris In - 01/23/2019 10:36 AM MEDICINE WORKER Transthoracic Echocardiography Report (TTE) Demographics Patient Name JOHN VERGARA Date of St udy 01/22/2019 Gender Male Visit Number [id number] Race Unknown [facility] r 223 Number Date of 1955 Referring BRITTON GOODRICH Physician Age 63 year(s) Sonographe gracie Eller, LAY, RDCS,RVT,RDMS [employer]er Aliya Hobbsi MD Isaac Ponce Physician Procedure [...] severity assessment is unreliable . Aortic Valve Xxvh-la-hsavfjyt AoV cusp calcification. Mild aortic sten osis. AoV area at rest by continuity equation is in the range of 1.82 cm 2. Preserved stroke volume. Mitral Valve Mild MV leaflet thickening. Severe mitral an nular and subvalvular calcification. Mild mitral regu rgitation. Nezd-qe-wjwfmlog mitral stenosis secondary to MAC. MV area [...] City/State/Zipcode Phone Number [facility] (01/21/2019 11:26 PM MEDICINE WORKER) RPR Nonreactive Nonreactive [facility] Specimen Blood Performing Organization Address City/State/Zipcode Phone Number [address] [address] CENTER after 11/19/2018 Insurance Payer Benefit Plan / Group Subscriber ID Type Phone A nena FAIZANR LAURENETTER SUPERIOR xxxxxxxxxxx Advance Directives For more information, please contact:[id number] [place], [place] [phone] Code Status Date Activated Date Inactivated Comments Full Code 05/30/2019 8:01 PM 06/09/2019 10:53 PM This code status was determined by: Patient Full Code 03/19/2019 11:39 PM 04/25/2019 7:15 PM This code status was determined by: Patient Full Code 01/21/2019 8:37 PM 01/24/2019 4:42 PM This code status was determined by: Patient
--- OUTSIDE RECORDS SUMMARY | 2019-11-20 09:48 | XMS REPORT | Summary of Care ---
:1955 Author Organization [facility] Address [address] [place] [address] Care Team Providers Name Role Phone CesiliaaleahDominic Unavailable Kinjal Edmond MD Primary Care Provider Reason for Visit Reason Comments Refill Request Encounter Details Date Type Department Care Team Description 11/13/2019 Refill [facility] Family Medicine Kinjal Snell MD Refill Request - [address] [place] [address] [place] [address] [phone] Allergies No Known Allergiesdocumented as of this encounter (statuses as of 11/13/2019) Medications Medication Sig Dispensed Refills Start Date [...] as of this encounter (statuses as of 11/13/2019) Active Problems Problem Noted Date Gastrostomy tube [...] as of this encounter (statuses as of 11/13/2019) Social History Tobacco Use Types Packs/Day Years Used Date Current Every Day Smoker 1.5 30 Smokeless Tobacco: Never Used Alcohol Use Drinks/Week oz/Week Comments Yes 7 Cans of beer 7.0 0 Standard drinks or equivalent Sex Assigned at Date Recorded Not on file documented as of this encounter Last Filed Vital Signs Not on filedocumented in this encounter Plan of Treatment Date Type Specialty Care Team Description 11/20/2019 Office Visit Family Medicine Fay Edmond MD [address] [place] [address] [phone] Health Maintenance Due Date Last Done Comments DTaP,Tdap,and Td Vaccines (1 - Tdap) 1973 COLON CANCER SCREENING ANNUAL FIT/FOBT 2004 COLON CANCER SCREENING FIT DNA EVERY 3 2004 YEARS COLON CANCER SCREENING SIGMOIDOSCOPY EVERY 2004 5 YEARS COLONOSCOPY 2004 Colorectal Cancer Screening 2004 Zoster Recombinant Vaccine (SHINGRIX) (1 2004 of 2) LUNG CANCER SCREEN: Recommended for age 0204/07/2017 04/07/19 17 55-80 with 30 + pack year history Medicare Wellness Visit 10/21/2019 PNEUMOCOCCAL VACCINES 65+ (1 of 1 - 10/21/2019 PPSV23) INFLUENZA VACCINE (#1) 2019 Depression Screening 08/06/2020 08/07/2019, 08/07/2019 HEPATITIS [...]
--- OUTSIDE RECORDS SUMMARY | 2019-11-20 09:48 | XMS REPORT | Summary of Care ---
:1955 Author Organization [facility] Address [address] [place] [address] Care Team Providers Name Role Phone CesiliaaleahDominic Unavailable Kinjal Edmond MD Primary Care Provider Reason for Visit Reason Comments Refill Request Encounter Details Date Type Department Care Team Description 11/20/2019 Refill [facility] Family Medicine Kinjal Snell MD Refill Request - [address] [place] [address] [place] [address] [phone] Allergies No Known Allergiesdocumented as of this encounter (statuses as of 11/20/2019) Medications Medication Sig Dispensed Refills Start Date [...] as of this encounter (statuses as of 11/20/2019) Active Problems Problem Noted Date Gastrostomy tube [...] as of this encounter (statuses as of 11/20/2019) Social History Tobacco Use Types Packs/Day Years Used Date Current Every Day Smoker 1.5 30 Smokeless Tobacco: Never Used Alcohol Use Drinks/Week oz/Week Comments Not Currently 7 Cans of beer 7.0 0 Standard drinks or equivalent Sex Assigned at Date Recorded Not on file COVID-19 Exposure Response Date Recorded In the last month, have you been in contact with No / Unsure 11/20/2019 8:31 AM CDT someone who was confirmed or suspected to have Coronavirus / COVID-19? 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
--- OUTSIDE RECORDS SUMMARY | 2019-11-20 09:48 | XMS REPORT | Continuity of Care Document ---
:[address] [facility] t Address [address] [place] [address] Care Team Providers Name Role Phone Pcp [...] Clinician Laya Tabares MD, Devonte Attending Clinician [phone] Irineo Aj MD Attending Clinician Hal CAMERON Attending Clinician Sangita Breaux MD Attending Clinician Anh CAMERON Attending Clinician Bob Andrews MD Attending Clinician Checo Holguin MD Attending Clinician Miranda Chavez CRNA Attending Clinician [phone] Kadeem Peña MD Attending Clinician Fara CAMERON Attending Clinician Ricardo Hamilton MD Attending Clinician Hilario CAMERON Attending Clinician FARA Attending Clinician Unavailable DELANEY HORNE Admitting Clinician Unavailable EDILMA ZAMUDIO Admitting Clinician Unavailable HILARIO Admitting Clinician Unavailable Payers Payer Name Policy Policy Number Effective Expiration Source Type Date Date AMBETTERAMBETTER xxxxxxxxxxx [facility]xxx [facility] Problems Condition Condition Condition Status Onset Resolution Last Treating Co mments Source Name Details Category Date Date Treatment Clinician Date Volume Volume Disease Active 2020-[address] [facility] overload overload 4-03 [facility] 00 [place] Delirium Delirium Disease Active 2020-0 [facility] 00 [place] Dysphagia Dysphagia Disease Active 2020-[address] 2-22 [facility] - 00:[facility]: Medical 00 [place] Severe Severe Disease Active 2020-[address] [facility] [...] St -24 [facility] - 00:00: Medical 00 [place] Hydropneum Hydropneum Disease Active C HI [facility] [...] C HI St c shock c shock [facility] History of Past Illness Condition Condition [...] Source Natural father Hypertension [facility] Natural mother Diabetes [facility] Social History Social Habit Start Date Stop Date Quantity Comments Source History of tobacco 1967-01-[address] [facility] - use 00:00:00 day smoker Medical Center History SDOH [facility] - Alcohol Binge Medical [address] Sex Assigned At [facility] Cigarettes smoked 2019-04-14 2019-04-[address] [facility] - current (pack per 00:00:00 00:00:00 Medical Center day) - Reported Cigarette 2019-04-14 2019-04-[address] [facility] - pack-years 00:00:00 00:00:00 [facility] Alcohol Comment 2019-03-20 2019-03-20 4 cans of beer [facility] - 00:[facility] 00:00:00 every evening [facility] [address] History [facility] 2019-01-21 2019-01-[address] [facility] - Alcohol Frequency 00:00:00 00:00:00 Medical Center History [facility] 2019-01-21 2019-01-[address] [facility] - Alcohol Std Drinks 00:00:00 00:00:00 Medica l [place] Tobacco Comment 2019-01-21 2019-01-[address] [facility] - 00:00:00 00:00:00 ready to quit Medical [address] smoking Smoking Status Start Date Stop Date Source Current every day smoker 2019-04-14 00:00:00 [facility] Medications Ordered Filled Start Stop Current Ordering Indication Dosage Frequency Signature Comments Components Source Medication Medication Date Date Medication? Clinician (SIG) Name Name gabapentin 2019- No 300mg [id number] Take [address] (NEURONTIN) 4-13 04-13 [id number] mg by [facility] - 300 MG 17:03: 00:00 3D mouth 3 Medical capsule 56 :00 (three) Center times daily. magnesium 2019- No 400mg QD Take [address] oxide - 04-13 mg by [facility] - (MAG-OX) 17:03: 00:00 mouth Medical 400 mg 56 :00 daily. [place] (241.3 mg magnesium) tablet metOLazone 2019- No 5mg Q.5W Take [address] (ZAROXOLYN) - 04-13 by mouth [place] es - 5 MG tablet 17:03: 00:00 twice a Me dical 55 :00 week On [place] Sunday and Sunday . QUEtiapine 2019- No 12.5mg QD Take 12.[address] (SEROQUEL) 4-13 04-13 mg by [facility] - 25 MG 17:03: 00:00 mouth Medical tablet 55 :00 nightly. [place] dilTIAZem 2019- No 120mg QD Take 120 [...] 00:00 mouth Medical tablet 16 :00 daily. [place] metOLazone 2019- No high blood 5mg Q.5W [...] (241.3 mg magnesium) tablet gabapentin No 300mg Q.[id number] Take [address] (NEURONTIN) 04-25 [id number] mg by [facility] - 300 MG 14:21: [...] for 90 days. midodrine 2019- No 5mg Q.[id number] Take [address] (PROAMATINE 04-25 [id number] tablet (5 [facility] - ) 5 MG [...] Center Heart rate 2019-06-09 20:05:00 90 /min [facility] Body temperature 2019-06-09 20:00:00 36.61 Stephanie [facility] Respiratory rate 2019-06-09 20:00:00 22 /min [facility] Oxygen saturation in 2019-06-09 20:00:00 98 /min [facility] Arterial blood by Medical Ce nter Pulse oximetry Body weight Measured 2019-06-09 06:00:00 71.1 kg [facility] BMI 2019-06-09 06:00:00 23.15 kg/m2 [facility] Body height 2019-06-02 06:00:00 175.3 cm [facility] Procedures Procedure Date / Time Performing Clinician Source Performed RHYTHM STRIP - SCAN 2019-07-02 12:50:08 Provider, [facility] REPORT OF PROCEDURE - 2019-07-02 12:50:05 Provider, [facility] RHYTHM STRIP - SCAN 2019-06-12 14:00:10 Provider, [facility] RHYTHM STRIP - SCAN 2019-06-12 14:00:08 Provider, [facility] POCT-GLUCOSE METER 2019-06-09 18:23:00 France Drake [facility] POCT-GLUCOSE METER 2019-06-09 12:40:00 France Drake [facility] COMPREHENSIVE METABOLIC 2019-06-09 11:30:00 France Drake [facility] POCT-GLUCOSE METER 2019-06-09 05:42:00 France Drake [facility] POCT-GLUCOSE METER 2019-06-08 23:32:00 France Drake [facility] POCT-GLUCOSE METER 2019-06-08 18:13:00 France Drake [facility] POCT-GLUCOSE METER 2019-06-08 05:26:00 France [facility] POCT-GLUCOSE METER 2019-06-07 23:19:00 Vidal France Galvez [facility] POCT-GLUCOSE METER 2019-06-07 18:41:00 Vidal, France Galvez [facility] POCT-GLUCOSE METER 2019-06-07 17:14:00 Vidal, France Galvez [facility] POCT-GLUCOSE METER 2019-06-07 14:17:00 Vidal, France Ann [facility] POCT-GLUCOSE METER 2019-06-07 06:16:00 Vidal, France [facility] POCT-GLUCOSE METER 2019-06-06 23:38:00 Vidal, France [facility] POCT-GLUCOSE METER 2019-06-06 17:48:00 Vidal, France [facility] POCT-GLUCOSE METER 2019-06-06 12:00:00 Vidal France [facility] POCT-GLUCOSE METER 2019-06-06 05:44:00 Vidal France Galvez [facility] COMPREHENSIVE METABOLIC 2019-06-06 03:50:00 Vidal France Galvez [facility] POCT-GLUCOSE METER 2019-06-05 23:58:00 Vidal France [facility] POCT-GLUCOSE METER 2019-06-05 16:45:00 Vidal France Leonor [facility] POTASSIUM 2019-06-05 16:31:00 Vidal France Leonor [facility] POCT-GLUCOSE METER 2019-06-05 12:17:00 Vidal France Leonor [facility] BASIC METABOLIC PANEL (7) 2019-06-05 06:01:00 France [facility] POCT-GLUCOSE METER 2019-06-05 06:01:00 Vidal France [facility] POCT-GLUCOSE METER 2019-06-05 00:03:00 [facility] 2019-06-04 17:43:00 Vidal [facility] XR ESOPH SWALLOW FUNCTION 2019-06-04 14:45:00 Serafin Palafox [facility] POCT-GLUCOSE METER 2019-06-04 11:44:00 Vidal [facility] POCT-GLUCOSE METER 2019-06-04 06:06:00 Vidal [facility] COMPREHENSIVE METABOLIC 2019-06-04 05:15:00 AlbertoLawsondaniel Ammy [facility] CBC W/PLT COUNT & AUTO 2019-06-04 05:15:00 Alberto, Ole Welleri [facility] US ABDOMEN LIMITED 2019-06-04 02:10:00 Vidal [facility] POCT-GLUCOSE METER 2019-06-03 23:38:00 Vidal [facility] POCT-GLUCOSE METER 2019-06-03 17:47:00 Vidal [facility] AMMONIA 2019-06-03 14:56:00 Vidal [facility] POCT-GLUCOSE METER 2019-06-03 12:09:00 Vidal [facility] POCT-GLUCOSE METER 2019-06-03 06:21:00 Serafin Palafox [facility] COMPREHENSIVE METABOLIC 2019-06-03 05:25:00 AlbertoOle savage [facility] MAGNESIUM 2019-06-03 05:25:00 Serafin Palafox [facility] CBC W/PLT COUNT & AUTO 2019-06-03 05:25:00 Alberto, Lawsondaniel Ammy [facility] POCT-GLUCOSE METER 2019-06-03 00:10:00 Serafin Palafox [facility] POCT-GLUCOSE METER 2019-06-02 17:53:00 Serafin Palafox [facility] BASIC METABOLIC PANEL (7) 2019-06-02 15:03:00 Serafin Palafox [facility] POCT-GLUCOSE METER 2019-06-02 12:29:00 Serafin Palafox [facility] BLOOD GAS, ARTERIAL 2019-06-02 08:15:00 Serafin Palafox [facility] POCT-GLUCOSE METER 2019-06-02 05:38:00 Serafin Palafox [facility] VANCOMYCIN LEVEL, TROUGH 2019-06-02 01:24:00 Val Mohr [facility] COMPREHENSIVE METABOLIC 2019-06-02 01:24:00 [facility] 2019-06-02 01:24:[address] [facility] CBC W/PLT COUNT & AUTO 2019-06-02 01:24:00 Alberto, Ole Boyd [facility] POCT-GLUCOSE METER 2019-06-01 23:14:00 Alberto, [facility] ECHOCARDIOGRAM REPORT - SCAN 2019-06-01 21:20:04 ProviderUday lt [facility] POCT-GLUCOSE METER 2019-06-01 17:49:00 Alberto, [facility] 2D ECHO W/ DOPPLER 2019-06-01 14:50:21 Alberto, [facility] (CW/PW/COLOR) [facility] POCT-GLUCOSE METER 2019-06-01 11:54:00 Alberto, [facility] MRSA SCREEN 2019-06-01 10:47:00 Val Mohr [facility] BASIC METABOLIC PANEL (7) 2019-06-01 10:46:00 Alberto, Ole Weller i [facility] MAGNESIUM 2019-06-01 10:46:00 Alberto, [facility] PHOSPH[facility]US 2019-06-01 10:46:00 Alberto, [facility] CBC W/PLT COUNT & AUTO 2019-06-01 10:46:00 Alberto, [facility] POCT-GLUCOSE METER 2019-06-01 05:37:00 Alberto, [facility] POCT-GLUCOSE METER 2019-05-31 23:21:00 Alberto, [facility] POCT-GLUCOSE METER 2019-05-31 17:44:00 Alberto, [facility] POCT-GLUCOSE METER 2019-05-31 11:21:00 Alberto, [facility] PROTHROMBIN TIME/INR 2019-05-31 10:31:00 Manolo [facility] HEPATITIS PANEL, ACUTE 2019-05-31 08:24:00 Manolo [facility] VANCOMYCIN LEVEL, RANDOM 2019-05-31 08:23:00 John Mendenhall [facility] COMPREHENSIVE METABOLIC 2019-05-31 08:23:00 Manolo [facility] PANEL [facility] B-TYPE NATRIURETIC FACTOR 2019-05-31 08:23:00 Manolo [facility] (BNP) [facility] CBC W/PLT COUNT & AUTO 2019-05-31 08:23:00 Manolo [facility] BLOOD CULTURE 2019-05-31 08:22:00 Manolo [facility] ECG 12-LEAD 2019-05-31 07:21:40 Manolo [facility] POCT-GLUCOSE METER 2019-05-31 05:54:[address] [facility] SODIUM, RANDOM URINE 2019-05-31 03:26:00 Manolo [facility] UREA NITROGEN, RANDOM URINE 2019-05-31 03:26:00 Manolo [facility] CREATININE, RANDOM URINE 2019-05-31 03:26:00 [facility] BLOOD CULTURE 2019-05-31 00:25:00 French [facility] POCT-GLUCOSE METER 2019-05-30 23:51:[address] [facility] XR CHEST 1 VIEW 2019-05-30 21:03:00 [facility] COMPREHENSIVE METABOLIC 2019-05-30 20:55:00 [facility] PAN[facility] PROTHROMBIN TIME/INR 2019-05-30 20:55:00 [facility] CBC W/PLT COUNT & AUTO 2019-05-30 20:55:00 [facility] S t [facility] DIFFERENTIAL [facility] ECG 12-LEAD 2019-05-30 19:25:56 Unknown, Hl7 Doctor [facility] XR CHEST 2 VIEWS 2019-05-08 12:14:00 Adelaide Lambert [facility] RHYTHM STRIP - SCAN 2019-05-01 17:29:28 Provider, [facility] RHYTHM STRIP - SCAN 2019-04-28 15:01:14 Provider, [facility] RHYTHM STRIP - SCAN 2019-04-28 15:01:12 Provider, [facility] XR CHEST 1 VIEW 2019-04-25 06:45:00 Zhao Moreno [facility] PORTABLE/BEDSIDE [facility] BASIC METABOLIC PANEL (7) 2019-04-25 04:52:00 Gustavo George [facility] MAGNESIUM 2019-04-25 04:52:00 Gustavo George [facility] PHOSPHORUS 2019-04-25 04:52:00 Gustavo George [facility] CBC W/PLT COUNT & AUTO 2019-04-25 04:52:00 Gustavo George [facility] XR CHEST 1 VIEW 2019-04-24 06:56:00 Josh, [facility] PORTABLE/BEDSIDE Medical [place] BASIC METABOLIC PANEL (7) 2019-04-24 04:11:00 Gustavo George [facility] MAGNESIUM 2019-04-24 04:11:00 Gustavo George [facility] PHOSPHORUS 2019-04-24 04:11:00 Gustavo [facility] CBC W/PLT COUNT & AUTO 2019-04-24 04:11:00 Gustavo George [facility] XR CHEST 1 VIEW 2019-04-23 13:57:00 [facility] X[facility] CHEST 1 VIEW 2019-04-23 06:31:[address] [facility] BASIC METABOLIC PANEL (7) 2019-04-23 03:53:00 Gustavo George [facility] MAGNESIUM 2019-04-23 03:53:00 Gustavo George [facility] PHOSPHORUS 2019-04-23 03:53:00 Gustavo George [facility] PREALBUMIN 2019-04-23 03:53:00 [facility] W/PLT COUNT & AUTO 2019-04-23 03:53:00 Gustavo George [facility] XR ESOPH SWALLOW FUNCTION 2019-04-22 14:30:00 Yonathan Mccracken [facility] - W/CINE VIDEO [facility] XR CHEST 1 VIEW 2019-04-22 05:49:00 Josh [facility] PORTABLE/[facility] BASIC METABOLIC PANEL (7) 2019-04-22 04:02:00 Gustavo George [facility] MAGNESIUM 2019-04-22 04:02:00 Gustavo [facility] PHOSPHORUS 2019-04-22 04:02:00 Gustavo [facility] CBC W/PLT COUNT & AUTO 2019-04-22 03:23:00 Gustavo George [facility] BASIC METABOLIC PANEL (7) 2019-04-21 12:23:00 Enoch Chung [facility] MAGNESIUM 2019-04-21 12:23:00 Sheldon [facility] XR CHEST 1 VIEW 2019-04-21 03:59:00 [facility] Medical [place] BASIC METABOLIC PANEL (7) 2019-04-21 03:43:00 Gustavo George [facility] MAGNESIUM 2019-04-21 03:43:00 Gustavo George [facility] PHOSPHORUS 2019-04-21 03:43:00 Gustavo George [facility] CBC W/PLT COUNT & AUTO 2019-04-21 03:42:00 Gustavo George [facility] BASIC METABOLIC PANEL (7) 2019-04-20 15:19:00 Zhao Moreno [facility] PHOSPHORUS 2019-04-20 15:19:00 Josh [facility] MAGNESIUM 2019-04-20 15:19:00 Sheldon [facility] CBC W/PLT COUNT & AUTO 2019-04-20 15:19:00 Zhao Moreno [facility] S [facility] POCT-GLUCOSE METER 2019-04-20 12:17:00 Fernando Andrews [facility] XR CHEST 1 VIEW 2019-04-20 05:50:00 Zhao Moreno [facility] PORTABLE/BEDSIDE [facility] BASIC METABOLIC PANEL (7) 2019-04-20 03:21:00 Zhao Moreno [facility] PHOSPHORUS 2019-04-20 03:21:00 [facility] 2019-04-20 03:21:00 Sheldon [facility] CBC W/PLT COUNT & AUTO 2019-04-20 03:21:00 [facility] S t [facility] POCT-GLUCOSE METER 2019-04-20 00:07:00 Fernando [facility] TRANSFUSION SERVICE REPORT - 2019-04-19 18:02:04 Provider, Uday mac[facility] BASIC METABOLIC PANEL (7) 2019-04-19 17:34:00 Josh Zhao [facility] PHOSPHORUS 2019-04-19 17:34:00 Josh [facility] MAGNESIUM 2019-04-19 17:34:00 Sheldon [facility] CBC W/PLT COUNT & AUTO 2019-04-19 17:34:00 [facility] XR CHEST 1 VIEW 2019-04-19 05:48:00 [facility] PORTABLE/BEDSIDE [facility] BASIC METABOLIC PANEL (7) 2019-04-19 03:26:00 Zhao Moreno [facility] PHOSPHORUS 2019-04-19 03:26:00 Josh [facility] MAGNESIUM 2019-04-19 03:26:00 Sheldon [facility] CBC W/PLT COUNT & AUTO 2019-04-19 03:26:00 [facility] POCT-GLUCOSE METER 2019-04-19 00:23:00 Fernando [facility] PREPARE LEUKO-REDUCED RBC 2019-04-18 23:54:00 Yonathan Mccracken [facility] POCT-GLUCOSE METER 2019-04-18 18:27:00 Fernando Andrews [facility] TRANSFUSION SERVICE REPORT - 2019-04-18 18:02:42 Provider, Uday macias [facility] BASIC METABOLIC PANEL (7) 2019-04-18 18:02:00 Zhao Moreno [facility] PHOSPHORUS 2019-04-18 18:02:00 Josh [facility] MAGNESIUM 2019-04-18 18:02:00 [facility] W/PLT COUNT & AUTO 2019-04-18 18:02:00 [facility] PO[facility]SE [facility]ER 2019-04-18 11:46:00 Fernando Andrews [facility] POCT-GLUCOSE METER 2019-04-18 05:54:00 Fernando Andrews [facility] XR CHEST 1 VIEW 2019-04-18 05:36:00 Josh [facility] PORTABLE/BEDSIDE Medical Center BLOOD GAS, ARTERIAL 2019-04-18 02:37:00 Josh [facility] BASIC METABOLIC PANEL (7) 2019-04-18 02:36:00 Josh [facility] PHOSPHORUS 2019-04-18 02:36:00 Josh [facility] MAGNESIUM 2019-04-18 02:36:00 [facility] CBC W/PLT COUNT & AUTO 2019-04-18 02:36:00 Josh [facility] POCT-GLUCOSE METER 2019-04-18 00:19:00 Fernando Andrews [facility] POCT-GLUCOSE METER 2019-04-17 18:30:00 Fernando Andrews [facility] TRANSFUSION SERVICE REPORT - 2019-04-17 17:52:04 Uday Wilkes lt [facility] BLOOD GAS, ARTERIAL 2019-04-17 16:17:00 Josh [facility] BASIC METABOLIC PANEL (7) 2019-04-17 16:16:00 Josh Zhao [facility] PHOSPHORUS 2019-04-17 16:16:00 Josh [facility] MAGNESIUM 2019-04-17 16:16:00 Sheldon [facility] CBC W/PLT COUNT & AUTO 2019-04-17 16:16:00 [facility] POCT-GLUCOSE METER 2019-04-17 13:14:00 Fernando [facility] TRANSFUSE LEUKO-REDUCED RED 2019-04-17 11:41:31 Yonathan Mccracken [facility] BLOOD CELLS [facility] XR CHEST 1 VIEW 2019-04-17 06:07:00 [facility] POCT-GLUCOSE METER 2019-04-17 05:32:00 Fernando [facility] BLOOD GAS, ARTERIAL 2019-04-17 03:30:00 [facility] BASIC METABOLIC PANEL (7) 2019-04-17 03:30:00 Josh [facility] PHOSPHORUS 2019-04-17 03:30:00 [facility] PROTHROMBIN TIME/INR 2019-04-17 03:30:00 [facility] APTT 2019-04-17 03:30:00 Josh [facility] MAGNESIUM 2019-04-17 03:30:00 Enoch Chung [facility] CBC W/PLT COUNT & AUTO 2019-04-17 03:30:00 [facility] HEMOGLOBIN AND HEMATOCRIT 2019-04-17 00:27:00 Celestina Estrada [facility] POCT-GLUCOSE METER 2019-04-17 00:10:00 Fernando [facility] PREPARE CRYOPRECIPITATE 2019-04-16 23:54:00 Sean Celestina [facility] PREPARE PLASMA 2019-04-16 23:54:00 Sean [facility] PREPARE LEUKO-REDUCED RBC 2019-04-16 23:54:00 Enoch Chung [facility] PERIPHERAL VASCULAR REPORT - 2019-04-16 21:23:26 Uday Wilkes lt [facility] POCT-GLUCOSE METER 2019-04-16 18:48:00 Fernando Andrews [facility] TRANSFUSION SERVICE REPORT - 2019-04-16 17:52:48 Uday Wilkes lt [facility] BLOOD GAS, ARTERIAL 2019-04-16 16:02:00 [facility] PHOSPHORUS 2019-04-16 16:02:00 [facility] BASIC METABOLIC PANEL (7) 2019-04-16 16:02:00 Enoch Chung [facility] CBC W/PLT COUNT & AUTO 2019-04-16 16:02:00 [facility] POCT-GLUCOSE METER 2019-04-16 13:24:00 Fernando [facility] HEMOGLOBIN AND HEMATOCRIT 2019-04-16 09:09:[facility] 2019-04-16 03:46:00 [facility] PORTABLE/BEDSIDE Medical Center MAGNESIUM 2019-04-16 03:28:00 Antonio Grace [facility] BASIC METABOLIC PANEL (7) 2019-04-16 03:28:00 [facility] PHOSPHORUS 2019-04-16 03:28:00 [facility] PROTHROMBIN TIME/INR 2019-04-16 03:28:00 [facility] APTT 2019-04-16 03:28:00 [facility] CALCIUM, IONIZED 2019-04-16 03:28:00 Sean [facility] CBC W/PLT COUNT & AUTO 2019-04-16 03:28:00 [facility] BLOOD GAS, ARTERIAL 2019-04-16 03:24:00 [facility] TRANSFUSE LEUKO-REDUCED RED 2019-04-16 01:54:16 Sean [facility] BLOOD CELLS [facility] POCT-GLUCOSE METER 2019-04-15 23:14:00 Fernando [facility] CBC W/PLT COUNT & AUTO 2019-04-15 22:51:00 Celestina Estr[facility] TRANSFUSE LEUKO-REDUCED RED 2019-04-15 21:45:24 Yonathan Mccracken [facility] TRANSFUSION SERVICE REPORT - 2019-04-15 18:08:22 Provider, Uday macias [facility] US GUIDE, VASCULAR ACCESS 2019-04-15 17:48:17 Enoch Chung [facility] BLOOD GAS, ARTERIAL 2019-04-15 16:04:00 [facility] BASIC METABOLIC PANEL (7) 2019-04-15 16:03:00 Zhao Moreno [facility] PHOSPHORUS 2019-04-15 16:03:00 Zhao Moreno [facility] CBC W/PLT COUNT & AUTO 2019-04-15 16:03:00 Zhao Moreno [facility] Kunal [facility] TRANSFUSE LEUKO-REDUCED RED 2019-04-15 14:21:08 Enoch Chung [facility] XR CHEST 1 VIEW 2019-04-15 14:01:00 Enoch Chung [facility]/BEDSIDE [facility] VENOUS DOPPLER ARM, LEFT 2019-04-15 11:30:00 Yonathan Mccracken [facility] THROMBOELASTOGRAPH (TEG) 2019-04-15 11:28:00 Enoch Chung [facility] POCT-GLUCOSE METER 2019-04-15 11:22:00 Fernando Andrews [facility] TRANSFUSE PLASMA 2019-04-15 11:03:06 Celestina Estrada [facility] ECG 12-LEAD 2019-04-15 10:36:36 Unknown, Hl7 Doctor [facility] ECG 12-LEAD 2019-04-15 10:35:51 Lucio Guillory [facility] TRANSFUSE CRYOPRECIPITATE 2019-04-15 09:22:40 Sean Celestina [facility] CBC W/PLT COUNT & AUTO 2019-04-15 08:52:00 Enoch Chung [facility] TRANSFUSE LEUKO-REDUCED RED 2019-04-15 07:56:15 [facility]-REDUCED RED 2019-04-15 06:24:[address] [facility] [facility] X[facility] CHEST 1 VIEW 2019-04-15 04:38:00 Josh [facility] PORTABLE/BEDSIDE [facility] Center BLOOD GAS, ARTERIAL 2019-04-15 04:07:00 Josh [facility] MAGNESIUM 2019-04-15 04:05:00 Antonio Grace [facility] BASIC METABOLIC PANEL (7) 2019-04-15 04:05:00 AparnaamYahaira [facility] PHOSPHORUS 2019-04-15 04:05:00 [facility] LACT[facility]ID, ARTERIAL 2019-04-15 04:05:00 Sean [facility] CALCIUM, IONIZED 2019-04-15 04:05:00 Sean [facility] CBC W/PLT COUNT & AUTO 2019-04-15 04:05:00 Sean [facility] TRANSFUSE LEUKO-REDUCED RED 2019-04-15 03:39:[address] [facility] TRANSFUSE LEUKO-REDUCED RED 2019-04-15 02:17:[address] [facility] PROTHROMBIN TIME/INR 2019-04-15 01:58:00 Josh [facility] PT/APTT 2019-04-15 01:58:00 Sean [facility] FIBRINOGEN 2019-04-15 01:58:00 [facility] POCT-GLUCOSE METER 2019-04-15 00:23:00 Bharti Kamara [facility] CORTISOL 2019-04-15 00:07:00 Jude Stewart [facility] CBC W/PLT COUNT & AUTO 2019-04-15 00:07:00 TerryJude [facility] S [facility] DIFFERENTIAL [facility] XR CHEST 1 VIEW 2019-04-14 20:32:00 Josh [facility] PORTABLE/BEDSIDE Medical Center BLOOD GAS, ARTERIAL 2019-04-14 20:00:00 Elma Estradanya [facility] MAGNESIUM 2019-04-14 19:57:00 Josh [facility] PHOSPHORUS 2019-04-14 19:57:00 [facility] CALCIUM, IONIZED 2019-04-14 19:57:00 [facility] FUNGUS CULTURE + SMEAR 2019-04-14 18:48:03 DarrylFernando [facility] AFB CULTURE + SMEAR 2019-04-14 18:48:03 DarrylFernando [facility] (NON-SPUTUM) [facility] BRONCHIAL CULTURE + GRAM 2019-04-14 18:48:[address] [facility] SPIN/CONCENTRATION CHARGE 2019-04-14 18:48:00 Fernando [facility] CALCIUM, IONIZED 2019-04-14 17:49:02 Elham [facility] BLOOD GAS, ARTERIAL 2019-04-14 17:49:02 Elham [facility] SODIUM NA-STAT LAB 2019-04-14 17:49:02 Elham [facility] POTASSIUM-STAT LAB 2019-04-14 17:49:02 Elham [facility] GLUCOSE-STAT LAB 2019-04-14 17:49:02 Elham [facility] HGB/HCT (H&H) - STAT LAB 2019-04-14 17:49:02 Elham [facility] AFB CULTURE + SMEAR 2019-04-14 17:15:20 Darryl, Fernando [facility] (NON-SPUTUM) [facility] ANAEROBIC CULTURE 2019-04-14 17:15:20 [facility] FUNGUS CULTURE + SMEAR 2019-04-14 17:15:20 [facility] SURGICALLY OBTAINED CULTURE 2019-04-14 17:15:20 [facility] + GRAM STAIN [facility] [employer] CULTURE + SMEAR 2019-04-14 17:10:41 [facility] (NON-SPUTUM) [facility] ANAEROBIC CULTURE 2019-04-14 17:10:41 [facility] Fernando [facility] FUNGUS CULTURE + SMEAR 2019-04-14 17:10:41 [facility] SURGICALLY OBTAINED CULTURE 2019-04-14 17:10:41 [facility] + GRAM STAIN [facility] [employer] CULTURE + SMEAR 2019-04-14 17:08:01 [facility]ernando [facility] ANAEROBIC CULTURE 2019-04-14 17:08:01 [facility] OBTAINED CULTURE 2019-04-14 17:08:01 Fernando Andrews [facility] + GRAM STAIN [facility] FUNGUS CULTURE + SMEAR 2019-04-14 17:08:01 DarrylAlanwn [facility] AFB CULTURE + SMEAR 2019-04-14 17:00:33 [facility] (NON-[facility]UTUM) [facility] ANAEROBIC CULTURE 2019-04-14 17:00:33 DarrylAlanwn [facility] FUNGUS CULTURE + SMEAR 2019-04-14 17:00:33 DarrylAlanwn [facility] SURGICALLY OBTAINED CULTURE 2019-04-14 17:00:33 DarrylFernando [facility] - + GRAM STAIN [facility] TISSUE EXAM 2019-04-14 16:54:00 Fernando [facility] CALCIUM, IONIZED 2019-04-14 16:30:09 Elham [facility] BLOOD GAS, ARTERIAL 2019-04-14 16:30:09 Elahm [facility] SODIUM NA-STAT LAB 2019-04-14 16:30:09 Elham [facility] POTASSIUM-STAT LAB 2019-04-14 16:30:09 Elham [facility] GLUCOSE-STAT LAB 2019-04-14 16:30:09 Elham [facility] HGB/HCT (H&H) - STAT LAB 2019-04-14 16:30:09 Elham [facility]guin [facility] CYTOLOGY 2019-04-14 15:48:00 Fernando [facility] SURGICALLY OBTAINED CULTURE 2019-04-14 15:41:33 Fernando Andrews [facility] - + GRAM STAIN [facility] CULTURE + SMEAR 2019-04-14 15:41:33 [facility] [place] FUNGUS CULTURE + SMEAR 2019-04-14 15:41:33 Alan Andrewswn [facility] ANAEROBIC CULTURE 2019-04-14 15:41:33 [facility] CALCIUM, IONIZED 2019-04-14 15:24:34 Elham [facility] BLOOD GAS, ARTERIAL 2019-04-14 15:24:34 Elham [facility] SODIUM NA-STAT LAB 2019-04-14 15:24:34 Elham [facility] POTASSIUM-STAT LAB 2019-04-14 15:24:34 Elham [facility] GLUCOSE-STAT LAB 2019-04-14 15:24:34 Elham [facility] HGB/HCT (H&H) - STAT LAB 2019-04-14 15:24:34 Elham [facility]gu[facility] THORACOSCOPY 2019-04-14 13:25:00 Fernando Andrews [facility] (VATS),DECORTICATION Medical [address] BRONCHOSCOPY 2019-04-14 13:25:00 Fernando [facility] ECG 12-LEAD 2019-04-14 12:19:58 Unknown, Hl7 Doctor [facility] XR CHEST 1 VIEW 2019-04-14 10:05:[address] [facility] PORTABLE[facility]EDSIDE [facility] MAGNESIUM 2019-04-14 01:01:00 Antonio Grace [facility] PHOSPHORUS 2019-04-14 01:01:00 Antonio Grace [facility] BASIC METABOLIC PANEL (7) 2019-04-14 01:01:00 [facility] PROTHROMBIN TIME/INR 2019-04-14 01:01:00 [facility] COMPREHENSIVE METABOLIC 2019-04-14 01:01:00 Zhao Moreno [facility] TYPE AND SCREEN, AUTOMATED 2019-04-14 01:01:00 Aparna [facility] CBC W/PLT COUNT & AUTO 2019-04-14 01:01:00 Atnonio Grace [facility] POCT-GLUCOSE METER 2019-04-13 19:57:00 Nal [facility] POCT-GLUCOSE METER 2019-04-13 17:17:00 Nalam, [facility] POCT-GLUCOSE METER 2019-04-13 11:52:00 [facility] XR CHEST 1 VIEW 2019-04-13 08:26:00 Jude Stewart [facility] PORTABLE/BEDSIDE [facility] POCT-GLUCOSE METER 2019-04-13 05:58:00 [facility] W/PLT COUNT & AUTO 2019-04-13 04:50:00 Antonio Grace [facility] MAGNESIUM 2019-04-13 04:39:00 Antonio Grace [facility] PHOSPHORUS 2019-04-13 04:39:00 Antonio Grace [facility] BASIC METABOLIC PANEL (7) 2019-04-13 04:39:00 Nal, [facility] HEPATIC FUNCTION PANEL 2019-04-13 04:39:00 Nalam, [facility] APTT 2019-04-13 04:29:00 Britton Renee [facility] POCT-GLUCOSE METER 2019-04-12 17:20:00 Nalam, [facility] POCT-GLUCOSE METER 2019-04-12 12:05:00 [facility] XR CHEST 1 VIEW 2019-04-12 06:43:00 Yonathan Mccracken [facility] - PORTABLE/BEDSIDE [facility] POCT-GLUCOSE METER 2019-04-12 05:21:00 Nalam, [facility] MAGNESIUM 2019-04-12 05:17:00 Antonio Grace [facility] PHOSPHORUS 2019-04-12 05:17:00 Sanjay Antonio Vladislav [facility] BASIC METABOLIC PANEL (7) 2019-04-12 05:17:00 [facility] CBC W/PLT COUNT & AUTO 2019-04-12 05:17:00 Antonio Grace [facility] POCT-GLUCOSE METER 2019-04-12 00:04:00 Nalam, [facility] POCT-GLUCOSE METER 2019-04-11 17:35:00 [facility] XR CHEST 1 VIEW 2019-04-11 13:04:00 [facility] POCT-GLUCOSE METER 2019-04-11 12:09:00 Nalam, [facility] POCT-GLUCOSE METER 2019-04-11 10:39:00 [facility] REPORT OF PROCEDURE - 2019-04-11 10:15:36 [facility] UPPER [facility]OS[facility],PEG 2019-04-11 09:00:00 Gabriel Peña [facility] POCT-GLUCOSE METER 2019-04-11 07:01:00 [facility] 2019-04-11 05:28:00 Antonio Grace [facility] PHOSPHORUS 2019-04-11 05:28:00 Antonio Grace [facility] BASIC METABOLIC PANEL (7) 2019-04-11 05:28:00 [facility] PROTHROMBIN TIME/INR 2019-04-11 05:28:00 Reena Mayorga [facility] CBC W/PLT COUNT & AUTO 2019-04-11 05:28:00 Sanjay [facility] POCT-GLUCOSE METER 2019-04-11 00:16:00 Aminah [facility] POCT-GLUCOSE METER 2019-04-10 14:51:00 Aminah [facility] XR CHEST 1 VIEW 2019-04-10 09:16:00 Yonathan Mccracken [facility] - PORTABLE/BEDSIDE [facility] MAGNESIUM 2019-04-10 04:41:00 Antonio Grace [facility] PHOSPHORUS 2019-04-10 04:41:00 Antonio Grace [facility] BASIC METABOLIC PANEL (7) 2019-04-10 04:41:00 Namita [facility] CBC W/PLT COUNT & AUTO 2019-04-10 04:41:00 Sanjay [facility] POCT-GLUCOSE METER 2019-04-10 00:37:00 Nalam, [facility] POCT-GLUCOSE METER 2019-04-09 17:19:00 Aparna [facility] XR ESOPH SWALLOW FUNCTION 2019-04-09 13:56:00 [facility] BODY FLUID CULTURE + GRAM 2019-04-09 12:10:00 Yonathan Mccracken [facility] POCT-GLUCOSE METER 2019-04-09 11:47:00 Nalam, [facility] POCT-GLUCOSE METER 2019-04-09 09:21:00 Nalam, [facility] XR CHEST 1 VIEW 2019-04-09 06:51:00 Yonathan Mccracken [facility] POCT-GLUCOSE METER 2019-04-09 06:16:00 Aparnavíctor, [facility] MAGNESIUM 2019-04-09 05:32:00 Sanjay [facility] PHOSPHORUS 2019-04-09 05:32:00 Sanjay [facility] BASIC METABOLIC PANEL (7) 2019-04-09 05:32:00 [facility] CBC W/PLT COUNT & AUTO 2019-04-09 05:32:00 Sanjay [facility] POCT-GLUCOSE METER 2019-04-09 01:56:00 [facility] POCT-GLUCOSE METER 2019-04-08 17:45:00 [facility] POCT-GLUCOSE METER 2019-04-08 12:36:00 [facility] XR CHEST 1 VIEW 2019-04-08 06:25:[address] [facility] PORTABLE/[facility] POCT-GLUCOSE METER 2019-04-08 05:17:00 Nalam, [facility] MAGNESIUM 2019-04-08 04:12:00 Sanjay [facility] PHOSPHORUS 2019-04-08 04:12:00 Antonio Grace [facility] BASIC METABOLIC PANEL (7) 2019-04-08 04:12:00 Aminah [facility] CBC W/PLT COUNT & AUTO 2019-04-08 04:12:00 Antonio Grace [facility] POCT-GLUCOSE METER 2019-04-08 00:22:00 Nalam [facility] BASIC METABOLIC PANEL (7) 2019-04-07 18:08:00 Sean Bates [facility] POCT-GLUCOSE METER 2019-04-07 17:36:00 Nalam, [facility] POCT-GLUCOSE METER 2019-04-07 11:35:00 Nalam, [facility] XR CHEST 1 VIEW 2019-04-07 11:21:00 Britton Dixon [facility] - PORTABLE/BEDSIDE [facility] XR CHEST 1 VIEW 2019-04-07 09:52:00 Yonathan Mccracken [facility] - PORTABLE/BEDSIDE [facility] POCT-GLUCOSE METER 2019-04-07 06:38:00 Namita, [facility] MAGNESIUM 2019-04-07 06:07:00 Antonio Grace [facility] PHOSPHORUS 2019-04-07 06:07:00 Antonio Grace [facility] BASIC METABOLIC PANEL (7) 2019-04-07 06:07:00 Sean Bates [facility] CBC W/PLT COUNT & AUTO 2019-04-07 06:07:00 CarleeAntonio yañez [facility] POCT-GLUCOSE METER 2019-04-06 23:48:00 Hal, Areli [facility] POCT-GLUCOSE METER 2019-04-06 17:17:00 Hal, Areli [facility] BASIC METABOLIC PANEL (7) 2019-04-06 16:40:00 Sean Bates [facility] POCT-GLUCOSE METER 2019-04-06 12:37:00 Hal, [facility] XR CHEST 1 VIEW 2019-04-06 06:49:00 Nawaf [facility] PORTABLE/BEDSIDE [facility] MAGNESIUM 2019-04-06 06:33:00 CombithsAntonio [facility] PHOSPHORUS 2019-04-06 06:33:00 Combiths [facility] BASIC METABOLIC PANEL (7) 2019-04-06 06:33:00 Jana [facility] CBC W/PLT COUNT & AUTO 2019-04-06 06:33:00 Combiths [facility] POCT-GLUCOSE METER 2019-04-06 05:15:00 Hal, [facility] BASIC METABOLIC PANEL (7) 2019-04-05 16:43:00 Jana [facility] POCT-GLUCOSE METER 2019-04-05 11:21:00 Hal, [facility] MAGNESIUM 2019-04-05 04:50:00 Combiths [facility] PHOSPHORUS 2019-04-05 04:50:00 Combiths [facility] BASIC METABOLIC PANEL (7) 2019-04-05 04:50:00 Jana [facility] CBC W/PLT COUNT & AUTO 2019-04-05 04:50:00 Sanjay [facility] XR CHEST 1 VIEW 2019-04-05 01:58:00 Nawaf [facility] PORTABLE/BEDSIDE [facility] POCT-GLUCOSE METER 2019-04-04 23:42:00 Hal, [facility] POCT-GLUCOSE METER 2019-04-04 17:43:00 Hal, [facility] BASIC METABOLIC PANEL (7) 2019-04-04 16:28:00 Jana [facility] XR ABDOMEN / KUB 1 VIEW 2019-04-04 15:58:00 Buddy Ford [facility] XR ABDOMEN / KUB 1 VIEW 2019-04-04 15:39:[address] [facility] POCT-GLUCOSE METER 2019-04-04 12:09:00 Hal, [facility] XR CHEST 1 VIEW 2019-04-04 08:30:[address] [facility] PORTABLE/BEDSIDE [facility] POCT-GLUCOSE METER 2019-04-04 05:29:00 Hal, [facility] MAGNESIUM 2019-04-04 04:42:00 Antonio Grace [facility] PHOSPHORUS 2019-04-04 04:42:00 Antonio Grace [facility] BASIC METABOLIC PANEL (7) 2019-04-04 04:42:00 Sean [facility] CBC W/PLT COUNT & AUTO 2019-04-04 04:42:00 Antonio Grace [facility] POCT-GLUCOSE METER 2019-04-03 23:54:00 Hal, [facility] POCT-GLUCOSE METER 2019-04-03 17:02:00 Hal, [facility] BASIC METABOLIC PANEL (7) 2019-04-03 15:27:00 Sean [facility] MAGNESIUM 2019-04-03 15:27:00 Carlos Alberto [facility] POCT-GLUCOSE METER 2019-04-03 12:07:00 Jean Marie [facility] POCT-GLUCOSE METER 2019-04-03 05:53:00 Jean Marie [facility] XR CHEST 1 VIEW 2019-04-03 05:14:[address] [facility] PORTABLE/BEDSIDE [facility] MAGNESIUM 2019-04-03 02:13:00 Antonio Grace [facility] PHOSPHORUS 2019-04-03 02:13:00 Antonio Grace [facility] BASIC METABOLIC PANEL (7) 2019-04-03 02:13:00 Sean Bates [facility] CBC W/PLT COUNT & AUTO 2019-04-03 02:13:00 Antonio Grace [facility] POCT-GLUCOSE METER 2019-04-02 23:54:00 Jean Marie [facility] APTT 2019-04-02 22:44:00 Thelma [facility] POCT-GLUCOSE METER 2019-04-02 17:26:00 Jean Marie [facility] BASIC METABOLIC PANEL (7) 2019-04-02 16:42:00 Sean Bates [facility] APTT 2019-04-02 16:42:00 [facility] POCT-GLUCOSE METER 2019-04-02 12:20:00 Jean Marie [facility] APTT 2019-04-02 08:12:00 [facility] XR CHEST 1 VIEW 2019-04-02 06:02:00 Carlos Alberto Caraballo [facility] - PORTABLE/BEDSIDE [facility] POCT-GLUCOSE METER 2019-04-02 05:34:00 Jean Marie [facility] APTT 2019-04-02 01:20:00 [facility] BLOOD GAS, ARTERIAL 2019-04-02 01:19:00 Lucio Guillory [facility] MAGNESIUM 2019-04-02 01:18:00 Antonio Grace Vladislav [facility] PHOSPHORUS 2019-04-02 01:18:00 Antonio Grace Vladislav [facility] BASIC METABOLIC PANEL (7) 2019-04-02 01:18:00 Sean Bates [facility] CBC W/PLT COUNT & AUTO 2019-04-02 01:18:00 Antonio Grace [facility] POCT-GLUCOSE METER 2019-04-01 23:48:00 Jean Marie [facility] BASIC METABOLIC PANEL (7) 2019-04-01 19:06:00 Sean [facility] APTT 2019-04-01 18:47:00 Britton Renee [facility] POCT-GLUCOSE METER 2019-04-01 17:51:00 [facility] POCT-GLUCOSE METER 2019-04-01 11:41:00 Jean [facility] APTT 2019-04-01 11:07:00 NemBritton albarran [facility] POCT-GLUCOSE METER 2019-04-01 06:26:00 Jean Marie [facility] XR CHEST 1 VIEW 2019-04-01 05:07:[address] [facility] PORTABLE/BEDSIDE [facility] BLOOD GAS, ARTERIAL 2019-04-01 03:25:00 Lucio Guillory [facility] MAGNESIUM 2019-04-01 03:23:00 Antonio Grace [facility] PHOSPHORUS 2019-04-01 03:23:00 Antonio Grace [facility] BASIC METABOLIC PANEL (7) 2019-04-01 03:23:00 Sean [facility] APTT 2019-04-01 03:23:00 [facility]deion [facility] CBC W/PLT COUNT & AUTO 2019-04-01 03:23:00 Antonio Grace [facility] POCT-GLUCOSE METER 2019-03-31 23:51:00 Jean Marie [facility] APTT 2019-03-31 22:13:00 Nemeh [facility] APTT 2019-03-31 19:52:00 Thelma [facility] POCT-GLUCOSE METER 2019-03-31 18:08:00 Jean Marie [facility] TROPONIN I 2019-03-31 13:59:00 Carrol Burroughs [facility] COMPREHENSIVE METABOLIC 2019-03-31 13:59:00 Carrol Burroughs [facility] PT/APTT 2019-03-31 13:59:00 Carrol Burroughs [facility] MAGNESIUM 2019-03-31 13:59:00 Carrol Burroughs [facility] PHOSPHORUS 2019-03-31 13:59:00 Carrol Burroughs [facility] LACTIC ACID, VENOUS 2019-03-31 13:59:00 Lucio Guillory [facility] BASIC METABOLIC PANEL (7) 2019-03-31 13:59:00 Sean [facility] APTT 2019-03-31 13:59:00 Britton Renee [facility] POCT-GLUCOSE METER 2019-03-31 11:50:00 Laya Tabares [facility] XR ABDOMEN / KUB 1 VIEW 2019-03-31 11:33:00 Britton Renee [facility] TROPONIN I 2019-03-31 09:12:00 Lucio Guillory [facility] BLOOD GAS, ARTERIAL 2019-03-31 06:42:00 Lucio Guillory [facility] APTT 2019-03-31 06:42:00 Britton Renee [facility] POCT-GLUCOSE METER 2019-03-31 05:40:00 Laya Tabares [facility] XR CHEST 1 VIEW 2019-03-31 05:29:[address] [facility] PORTABLE/BEDSIDE [facility] APTT 2019-03-31 04:20:00 Britton Renee [facility] BLOOD GAS, ARTERIAL 2019-03-31 03:52:00 Lucio Guillory [facility] LACTIC ACID, VENOUS 2019-03-31 03:51:00 Carrol Burroughs [facility] MAGNESIUM 2019-03-31 03:51:00 Antonio Grace [facility] PHOSPHORUS 2019-03-31 03:51:00 LisaAntonio ortiz [facility] BASIC METABOLIC PANEL (7) 2019-03-31 03:51:00 Sean [facility] CBC W/PLT COUNT & AUTO 2019-03-31 03:51:00 SanjayAntonio [facility] B-TYPE NATRIURETIC FACTOR 2019-03-31 01:30:00 Carrol Burroughs [facility] (BNP) [facility] LACTIC ACID, VENOUS 2019-03-31 01:30:00 Pastora [facility] TROPONIN I 2019-03-31 01:30:00 Pastora [facility] POCT-GLUCOSE METER 2019-03-31 00:17:[address] [facility] TEST DESIGN 2019-03-30 23:54:00 Pastora [facility] CT BRAIN WITHOUT IV CONTRAST 2019-03-30 23:54:00 Lucio [facility]ill[facility] POCT-BLOOD GASES, ARTERIAL 2019-03-30 20:53:00 Laya [facility] POCT-SODIUM 2019-03-30 20:53:00 [facility]-POT[facility]SIUM 2019-03-30 20:53:00 [facility] PO[facility]-GLUCOSE 2019-03-30 20:53:00 [facility] POCT-CALCIUM IONIZED 2019-03-30 20:53:00 [facility]-HEMATOCRIT 2019-03-30 20:53:00 [facility]-HEMOGLOBIN 2019-03-30 20:53:00 [facility] COMPREHENSIVE METABOLIC 2019-03-30 20:44:00 Carrol Burroughs [facility] TROPONIN I 2019-03-30 20:44:00 Miguel Burroughsirma Stephens [facility] MAGNESIUM 2019-03-30 20:44:00 Miguel Burroughsirma Stephens [facility] PHOSPHORUS 2019-03-30 20:44:00 Miguel Burroughsia Kat [facility] LACTIC ACID, VENOUS 2019-03-30 20:44:00 Britton Zamudio [facility] CBC W/PLT COUNT & AUTO 2019-03-30 20:44:00 Carrol Burroughs [facility] XR CHEST 1 VIEW 2019-03-30 20:34:[address] [facility] PORTABLE/BEDSIDE [facility] APTT 2019-03-30 17:57:00 Britton Renee [facility] POCT-GLUCOSE METER 2019-03-30 17:54:00 [facility] BASIC METABOLIC PANEL (7) 2019-03-30 15:46:00 Sean [facility] APTT 2019-03-30 12:08:00 Britton Renee [facility] POCT-GLUCOSE METER 2019-03-30 11:49:00 Laya [facility] XR CHEST 1 VIEW 2019-03-30 07:47:00 Buddy Ford [facility]/BEDSIDE [facility] APTT 2019-03-30 06:32:00 Britton Renee [facility] POCT-GLUCOSE METER 2019-03-30 05:55:00 [facility] 2019-03-30 04:31:00 Antonio Grace [facility] PHOSPHORUS 2019-03-30 04:31:00 Antonio Grace [facility] BASIC METABOLIC PANEL (7) 2019-03-30 04:31:00 Sean Bates [facility]ph [facility] APTT 2019-03-30 04:31:00 Britton Renee [facility] CBC W/PLT COUNT & AUTO 2019-03-30 04:31:00 Antonio Grace [facility] POCT-GLUCOSE METER 2019-03-30 00:16:00 [facility]ER 2019-03-29 18:14:00 [facility] BASIC METABOLIC PANEL (7) 2019-03-29 12:20:[address] [facility] POCT-GLUCOSE METER 2019-03-29 12:18:00 [facility] POCT-[facility]UCOSE METER 2019-03-29 06:00:00 [facility] 1 VIEW 2019-03-29 04:42:00 Sean Bates [facility] PORTABLE/BEDSIDE [facility] APTT 2019-03-29 03:33:00 Britton Renee [facility] MAGNESIUM 2019-03-29 03:30:00 Antonio Grace [facility] PHOSPHORUS 2019-03-29 03:30:00 Antonio Grace [facility] BASIC METABOLIC PANEL (7) 2019-03-29 03:30:00 Sean Bates [facility] CBC W/PLT COUNT & AUTO 2019-03-29 03:30:00 Antonio Grace [facility] POCT-GLUCOSE METER 2019-03-29 00:23:00 Laya [facility] VANCOMYCIN LEVEL, TROUGH 2019-03-28 20:25:00 Alexandrea Hoffman [facility] APTT 2019-03-28 20:25:00 Britton Renee [facility] POCT-GLUCOSE METER 2019-03-28 17:33:00 Laya [facility] BASIC METABOLIC PANEL (7) 2019-03-28 16:03:00 Sean Bates [facility] APTT 2019-03-28 14:03:00 Britton Renee [facility] POCT-GLUCOSE METER 2019-03-28 12:26:00 Laya Tabares [facility] CYTOLOGY 2019-03-28 08:03:00 Britton Renee [facility] APTT 2019-03-28 06:30:00 Britton Renee [facility] MAGNESIUM 2019-03-28 04:21:00 Antonio Grace [facility] PHOSPHORUS 2019-03-28 04:21:00 Antonio Grace [facility] BASIC METABOLIC PANEL (7) 2019-03-28 04:21:00 Sean Bates [facility] APTT 2019-03-28 04:21:00 Britton Renee [facility] CBC W/PLT COUNT & AUTO 2019-03-28 04:21:00 Antonio Grace [facility] XR CHEST 1 VIEW 2019-03-28 03:24:00 [facility] POCT-GLUCOSE METER 2019-03-28 00:13:00 Laya Tabares [facility] POCT-GLUCOSE METER 2019-03-27 17:40:00 Laya Tabares [facility] BASIC METABOLIC PANEL (7) 2019-03-27 16:05:00 Sean Bates [facility] APTT 2019-03-27 12:05:00 Britton Renee [facility] POCT-GLUCOSE METER 2019-03-27 11:31:00 Laya Tabares [facility] APTT 2019-03-27 05:34:00 Britton Renee [facility] POCT-GLUCOSE METER 2019-03-27 05:05:00 Laya Tabares [facility] MAGNESIUM 2019-03-27 04:32:00 Antonio Grace [facility] PHOSPHORUS 2019-03-27 04:32:00 Antonio Grace [facility] BASIC METABOLIC PANEL (7) 2019-03-27 04:32:00 Sean Bates [facility] CBC W/PLT COUNT & AUTO 2019-03-27 04:32:00 Antonio Grace [facility] XR CHEST 1 VIEW 2019-03-27 03:54:00 [facility] Bates [facility] ECHOCARDIOGRAM REPORT - SCAN 2019-03-26 21:11:42 Uday Wilkes lt [facility] APTT 2019-03-26 20:13:00 Britton Renee [facility] IR DRAINAGE CATHETER CHANGE 2019-03-26 19:30:00 Yonathan Mccracken [facility] POCT-GLUCOSE METER 2019-03-26 18:20:00 Laya Tabares [facility] BASIC METABOLIC PANEL (7) 2019-03-26 17:33:00 Britton Renee [facility] APTT 2019-03-26 12:53:00 Britton Renee [facility] POCT-GLUCOSE METER 2019-03-26 11:54:00 Laya Tabares [facility] APTT 2019-03-26 10:27:00 Britton Renee [facility] POCT-GLUCOSE METER 2019-03-26 06:42:00 Laya Tabares [facility] XR CHEST 1 VIEW 2019-03-26 03:58:00 Artur Ariza [facility] BLOOD GAS, ARTERIAL 2019-03-26 03:08:00 Antonio Grace [facility] MAGNESIUM 2019-03-26 03:00:00 Antonio Grace [facility] PHOSPHORUS 2019-03-26 03:00:00 Antonio Grace [facility] BASIC METABOLIC PANEL (7) 2019-03-26 03:00:00 Tomer Lora [facility] APTT 2019-03-26 03:00:00 Britton Renee [facility] CBC W/PLT COUNT & AUTO 2019-03-26 03:00:00 Antonio Grace [facility] POCT-GLUCOSE METER 2019-03-26 00:02:00 Laya Tabares [facility] BASIC METABOLIC PANEL (7) 2019-03-25 20:05:00 Tomer Lora [facility] 2D ECHO W/ DOPPLER 2019-03-25 19:04:43 GucciBritton [facility] (CW/PW/COLOR) [facility] POCT-GLUCOSE METER 2019-03-25 18:10:00 Laya Tabares [facility] CT CHEST WITHOUT IV CONTRAST 2019-03-25 18:00:00 [facility]BD[facility]/PELVIS WITHOUT IV 2019-03-25 18:00:00 [facility] XR CHEST 1 VIEW 2019-03-25 16:10:00 GucciBritton [facility] APTT 2019-03-25 15:30:00 [facility] BASIC METABOLIC PANEL (7) 2019-03-25 11:46:00 Tomer Lora [facility] BLOOD GAS, ARTERIAL 2019-03-25 11:43:00 Broderick Nieto CH, I [facility] POCT-GLUCOSE METER 2019-03-25 11:40:00 Laya Tabares [facility] APTT 2019-03-25 09:33:00 Britton Renee [facility] BLOOD CULTURE 2019-03-25 09:32:00 [facility] SPUTUM CULTURE + GRAM STAIN 2019-03-25 09:08:00 Dread Renee [facility] URINE CULTURE 2019-03-25 09:08:00 Britton Renee [facility] URINALYSIS W/ REFLEX URINE 2019-03-25 09:08:00 Steve Renee [facility] ECG 12-LEAD 2019-03-25 08:09:17 Britton Renee [facility] POCT-GLUCOSE METER 2019-03-25 06:06:00 Laya Tabares [facility] XR CHEST 1 VIEW 2019-03-25 04:03:00 Artur Ariza [facility] MAGNESIUM 2019-03-25 03:30:00 Antonio Grace [facility] PHOSPHORUS 2019-03-25 03:30:00 Antonio Grace [facility] BASIC METABOLIC PANEL (7) 2019-03-25 03:30:00 Tomer Lora [facility] APTT 2019-03-25 03:09:00 Britton Renee [facility] CBC W/PLT COUNT & AUTO 2019-03-25 03:09:00 Antonio Grace [facility] POCT-GLUCOSE METER 2019-03-25 00:01:00 Laya Tabares [facility] BASIC METABOLIC PANEL (7) 2019-03-24 20:31:00 Tomer Lora [facility] APTT 2019-03-24 20:31:00 Britton Renee [facility] POCT-GLUCOSE METER 2019-03-24 18:07:00 Laya Tabares [facility] XR CHEST 1 VIEW 2019-03-24 17:12:00 Aurelio Cassidy [facility] XR ABDOMEN / KUB 1 VIEW 2019-03-24 17:12:00 Aurelio Cassidy [facility] BASIC METABOLIC PANEL (7) 2019-03-24 12:36:00 Tomer Lora [facility] APTT 2019-03-24 12:36:00 NemBritton albarran [facility] POCT-GLUCOSE METER 2019-03-24 12:17:00 Laya Tabares [facility] BLOOD GAS, ARTERIAL 2019-03-24 12:04:00 Gerson Vonnierocio Ponce CH I [facility] EEG EXTENDED MONITORING 40 - 2019-03-24 11:23:00 NemehAden [facility] 60 MINUTES [facility] POCT-GLUCOSE METER 2019-03-24 05:58:00 Tomer Lora [facility] BLOOD GAS, ARTERIAL 2019-03-24 04:29:00 Fredi Acosta [facility] APTT 2019-03-24 04:25:00 Britton Renee [facility] MAGNESIUM 2019-03-24 04:10:00 Antonio Grace [facility] PHOSPHORUS 2019-03-24 04:10:00 Antonio Grace [facility] BASIC METABOLIC PANEL (7) 2019-03-24 04:10:00 Tomer Lora [facility] CBC W/PLT COUNT & AUTO 2019-03-24 04:10:00 Antonio Grace [facility] XR CHEST 1 VIEW 2019-03-24 03:00:00 Artur Ariza [facility] CT BRAIN WITHOUT IV CONTRAST 2019-03-24 01:12:00 Fredi Acosta [facility] POCT-GLUCOSE METER 2019-03-24 00:05:00 Tomer Lora [facility] VANCOMYCIN LEVEL, TROUGH 2019-03-23 23:59:00 Lina Adkins [facility] BASIC METABOLIC PANEL (7) 2019-03-23 19:44:00 Tomer Lora [facility] BASIC METABOLIC PANEL (7) 2019-03-23 15:55:00 Tomer Lora [facility] HEPATIC FUNCTION PANEL 2019-03-23 15:55:00 Tomer Lora [facility] AMMONIA 2019-03-23 15:55:00 MedstephanieArtur [facility] MAGNESIUM 2019-03-23 05:58:00 Antonio Grace [facility] PHOSPHORUS 2019-03-23 05:58:00 Antonio Grace [facility] BASIC METABOLIC PANEL (7) 2019-03-23 05:58:00 Tomer Lora [facility] APTT 2019-03-23 05:58:00 [facility] BLOOD GAS, ARTERIAL 2019-03-23 05:58:00 Petrona Fountain [facility] CBC W/PLT COUNT & AUTO 2019-03-23 05:58:00 Antonio Grace [facility] (CELLAVISION MANUAL DIFF) 2019-03-23 05:58:00 Antonio Grace [facility] POCT-GLUCOSE METER 2019-03-23 05:24:00 Tomer Lora [facility] POCT-GLUCOSE METER 2019-03-23 00:09:00 Tomer Lora [facility] APTT 2019-03-22 23:35:00 Britton Renee [facility] BASIC METABOLIC PANEL (7) 2019-03-22 20:05:00 Tomer Lora [facility] PT/APTT 2019-03-22 17:15:00 Tomer Lora [facility] AFB CULTURE + SMEAR 2019-03-22 14:37:00 Tomer Lora [facility] (NON-SPUTUM) [facility] BODY FLUID CELL COUNT WITH 2019-03-22 14:37:00 Tomer Lora [facility] FUNGUS CULTURE + SMEAR 2019-03-22 14:37:00 Tomer Lora [facility] SPIN/CONCENTRATION CHARGE 2019-03-22 14:37:00 Tomer Lora [facility] ADENOSINE DEAMINASE, FLUID 2019-03-22 14:36:00 Tomer Lora [facility] BODY FLUID CULTURE + GRAM 2019-03-22 14:36:[address] [facility] GLUCOSE PLEURAL FLUID 2019-03-22 14:36:00 Tomer Lora [facility] LACTATE DEHYDROGENASE (LD), 2019-03-22 14:36:00 Tomer Lora Ba [facility] PH, BODY FLUID 2019-03-22 14:36:00 Tomer Lora [facility] PROTEIN, TOTAL, PLEURAL 2019-03-22 14:36:00 Tomer Lora [facility] TRIGLYCERIDES, PLEURAL FLUID 2019-03-22 14:36:00 Tomer Lora [facility] ADENOSINE DEAMINASE, FLUID 2019-03-22 14:35:00 Tomer Lora [facility] AFB CULTURE + SMEAR 2019-03-22 14:35:[address] [facility] (NON-SPUTUM) [facility] ALBUMIN PLEURAL FLUID 2019-03-22 14:35:00 Tomer Lora [facility] BODY FLUID CELL COUNT WITH 2019-03-22 14:35:00 Tomer Lora [facility] BODY FLUID CULTURE + GRAM 2019-03-22 14:35:[address] [facility] FUNGUS CULTURE + SMEAR 2019-03-22 14:35:00 Tomer Lora [facility] GLUCOSE PLEURAL FLUID 2019-03-22 14:35:00 Tomer Lora [facility] LACTATE DEHYDROGENASE (LD), 2019-03-22 14:35:00 Tomer Lora Ba [facility] PROTEIN, TOTAL, PLEURAL 2019-03-22 14:35:00 Tomer Lora [facility] PH, BODY FLUID 2019-03-22 14:35:00 Tomer Lora [facility] TRIGLYCERIDES, PLEURAL FLUID 2019-03-22 14:35:00 Tomer Lora [facility] BRONCHIAL CULTURE + GRAM 2019-03-22 14:32:[address] [facility] FUNGUS CULTURE + SMEAR 2019-03-22 14:32:00 Tomer Lora [facility] LEGIONELLA CULTURE 2019-03-22 14:32:00 Tomer Lora [facility] AFB CULTURE + SMEAR 2019-03-22 14:32:00 Tomer Lora CH, I [facility] (NON-SPUTUM) [facility] SPIN/CONCENTRATION CHARGE 2019-03-22 14:32:00 Tomer Lora [facility] BLOOD CULTURE 2019-03-22 09:35:00 Britton Renee [facility] BASIC METABOLIC PANEL (7) 2019-03-22 09:35:00 Tomer Lora [facility] APTT 2019-03-22 09:35:00 Britton Renee [facility] XR CHEST 1 VIEW 2019-03-22 08:09:[address] [facility] PORTABLE/BEDSIDE [facility] POCT-GLUCOSE METER 2019-03-22 05:53:00 Tomer Lora [facility] VANCOMYCIN LEVEL, TROUGH 2019-03-22 01:58:00 Josh Keri [facility] MAGNESIUM 2019-03-22 01:58:00 Antonio Grace [facility] PHOSPHORUS 2019-03-22 01:58:00 Antonio Grace [facility] BASIC METABOLIC PANEL (7) 2019-03-22 01:58:00 Tomer Lora [facility] CBC W/PLT COUNT & AUTO 2019-03-22 01:58:00 Antonio Grace [facility] POCT-GLUCOSE METER 2019-03-22 00:30:00 Tomer Lora [facility] BASIC METABOLIC PANEL (7) 2019-03-21 21:52:00 Tomer Lora [facility] TRANSFUSION SERVICE REPORT - 2019-03-21 21:06:03 Provider, [facility]day [facility] BODY FLUID CULTURE + GRAM 2019-03-21 19:34:00 Broderick Nieto [facility] BODY FLUID CELL COUNT WITH 2019-03-21 19:10:00 Broderick Nieto [facility] FUNGUS CULTURE + SMEAR 2019-03-21 19:10:00 [facility] PH, BODY FLUID 2019-03-21 19:10:00 [facility] PROTEIN, TOTAL, PLEURAL 2019-03-21 19:10:00 [facility] TRIGLYCERIDES, PLEURAL FLUID 2019-03-21 19:10:00 Patricia Nieto [facility] ALBUMIN PLEURAL FLUID 2019-03-21 19:09:00 [facility] GLUCOSE PLEURAL FLUID 2019-03-21 19:09:00 Broderick Nieto [facility] LACTATE DEHYDROGENASE (LD), 2019-03-21 19:09:00 Devon Nieto [facility] US DRAINAGE CHEST WITH TUBE 2019-03-21 18:25:[address] [facility] MRSA SCREEN 2019-03-21 08:50:00 Britton Renee [facility] RAPID INFLUENZA A&B SCREEN 2019-03-21 08:50:00 Tomer Lora [facility] RESPIRATORY PANEL [facility] 2019-03-21 08:50:00 Tomer Lora [facility] RETICULOCYTE COUNT 2019-03-21 08:50:00 Tomer Lora [facility] FERRITIN 2019-03-21 08:49:00 Tomer Lora [facility] IRON, TIBC, % SAT. (WITHOUT 2019-03-21 08:49:00 Lora, Tomer Ba [facility] LACTATE DEHYDROGENASE (LDH) 2019-03-21 08:49:00 [facility] FOLATE 2019-03-21 08:49:00 Tomer Lora [facility] BASIC METABOLIC PANEL (7) 2019-03-21 08:49:00 Tomer Lora [facility] MAGNESIUM 2019-03-21 08:49:00 Tomer Lora [facility] POCT-GLUCOSE METER 2019-03-21 05:34:00 Tomer Lora [facility] US ABDOMEN LIMITED 2019-03-21 03:55:00 Antonio Grace [facility] MAGNESIUM 2019-03-21 02:03:00 Antonio Grace [facility] PHOSPHORUS 2019-03-21 02:03:00 Antonio Grace [facility] CBC W/PLT COUNT & AUTO 2019-03-21 02:03:00 Antonio Grace [facility] (CELLAVISION MANUAL DIFF) 2019-03-21 02:03:00 Antonio Grace [facility] BASIC METABOLIC PANEL (7) 2019-03-21 00:18:00 Brdoerick Nieto [facility] MAGNESIUM 2019-03-21 00:18:00 Antonio Grace [facility] POCT-GLUCOSE METER 2019-03-20 23:46:00 Tomer Lora [facility] ECHOCARDIOGRAM REPORT - SCAN 2019-03-20 21:22:37 Uday Wilkes lt [facility] POCT-GLUCOSE METER 2019-03-20 18:11:00 Tomer Lora [facility] BLOOD GAS, ARTERIAL 2019-03-20 16:34:00 Britton Renee [facility] BASIC METABOLIC PANEL (7) 2019-03-20 16:33:00 Broderick Nieto [facility] MAGNESIUM 2019-03-20 16:33:00 Antonio Grace [facility] VANCOMYCIN LEVEL, TROUGH 2019-03-20 12:58:00 Britton Renee [facility] ECG 12-LEAD 2019-03-20 12:42:24 Unknown, Hl7 Doctor [facility] POCT-GLUCOSE METER 2019-03-20 12:14:00 Guido Tomer [facility] 2D ECHO W/ DOPPLER 2019-03-20 11:05:52 Tomer Lora [facility] (CW/PW/COLOR) [facility] CT CHEST WITHOUT IV CONTRAST 2019-03-20 10:45:00 Aden Renee [facility] SPUTUM CULTURE + GRAM STAIN 2019-03-20 06:31:00 Antonio Grace [facility] TROPONIN I 2019-03-20 05:49:00 Antonio Grace [facility] ABORH, MANUAL 2019-03-20 05:48:00 Trista Salmeron [facility] POCT-GLUCOSE METER 2019-03-20 05:44:00 Tomer Lora [facility] XR CHEST 1 VIEW 2019-03-20 04:05:00 Antonio Grace [facility] BLOOD GAS, ARTERIAL 2019-03-20 03:14:[address] [facility] BLOOD CULTURE 2019-03-20 03:08:00 Antonio Grace [facility] VANCOMYCIN LEVEL, RANDOM 2019-03-20 03:00:00 Antonio Grace [facility] B-TYPE NATRIURETIC FACTOR 2019-03-20 03:00:00 Antonio Grace [facility] (BNP) [facility] HEMOGLOBIN A1C 2019-03-20 03:00:00 Sanjay [facility] TSH/FREE T4 IF INDICATED 2019-03-20 03:00:00 Antonio Grace [facility] PROTHROMBIN TIME/INR 2019-03-20 03:00:[address] [facility] PT/APTT 2019-03-20 03:00:00 Comb[facility]s [facility] LACTIC ACID, VENOUS 2019-03-20 03:00:00 Combiths, [facility] FIBRINOGEN 2019-03-20 03:00:00 Combdiana [facility] TYPE AND SCREEN, AUTOMATED 2019-03-20 03:00:[address] [facility] BASIC METABOLIC PANEL (7) 2019-03-20 02:59:00 [facility] HEPATIC FUNCTION PANEL 2019-03-20 02:59:00 Combiths, [facility] MAGNESIUM 2019-03-20 02:59:00 [facility] PHOSPHORUS 2019-03-20 02:59:00 [facility] TROPONIN I 2019-03-20 02:59:00 [facility] LIPID PANEL 2019-03-20 02:59:00 [facility] CBC W/PLT COUNT & AUTO 2019-03-20 02:59:00 Combdiana [facility] LEGIONELLA URINE ANTIGEN 2019-03-20 02:23:00 Combiths [facility] URINE CULTURE 2019-03-20 02:22:00 Sanjay [facility] SODIUM, RANDOM URINE 2019-03-20 02:22:[address] [facility] CHLORIDE, RANDOM URINE 2019-03-20 02:22:[address] [facility] CREATININE, RANDOM URINE 2019-03-20 02:22:00 Combiths [facility] UREA NITROGEN, RANDOM URINE 2019-03-20 02:22:[address] [facility] PROTEIN, RANDOM URINE 2019-03-20 02:22:00 Combithkunal [facility] OSMOLALITY, URINE 2019-03-20 02:22:00 Combiths Antonio M [facility] URINALYSIS W/ REFLEX URINE 2019-03-20 02:22:00 Antonio Grace [facility] POCT-GLUCOSE METER 2019-03-20 00:39:00 Tomer Lora [facility] ECG 12-LEAD 2019-03-20 00:28:11 Unknown, Hl7 Doctor [facility] REPORT OF PROCEDURE - 2019-01-28 13:40:05 Provider, [facility] ENDOSCOPY SCAN Scanning [facility] RHYTHM STRIP - SCAN 2019-01-28 13:40:02 Provider, [facility] BASIC METABOLIC PANEL (7) 2019-01-24 04:31:00 Josue Rich [facility] MAGNESIUM 2019-01-24 04:31[facility]-01-24 04:31:00 Jose [facility] CBC W/PLT COUNT & AUTO 2019-01-24 04:31:00 Josue Rich [facility] TROPONIN I 2019-01-23 21:59:00 [facility] ECH[facility] REPORT - SCAN 2019-01-23 21:21:25 Provider, Uday [facility] TROPONIN I 2019-01-23 16:02:00 Josue Rich [facility] TSH/FREE T4 IF INDICATED 2019-01-23 10:13:00 [facility] 2019-01-23 10:13:00 Josue Rich [facility] B-TYPE NATRIURETIC FACTOR 2019-01-23 10:13:[address] [facility] (BNP) [facility] ECG 12-LEAD 2019-01-23 09:00:25 Hilario [facility] MRA HEAD WITHOUT IV CONTRAST 2019-01-23 08:01:00 Josue Rich [facility] BASIC METABOLIC PANEL (7) 2019-01-23 04:59:00 Josue Rich CH, I [facility] MAGNESIUM 2019-01-23 04:59:00 Josue Rich [facility] CBC W/PLT COUNT & AUTO 2019-01-23 04:59:00 Josue Rich [facility] S [facility] POTASSIUM 2019-01-22 19:43:00 Josue Rich [facility] MR BRAIN WITHOUT IV CONTRAST 2019-01-22 18:11:00 Aden Hamilton [facility] CTA BRAIN 2019-01-22 16:59:00 Katiana Earl [facility] CT/CTA CAROTID 2019-01-22 16:59:00 Laureano [facility] 2D ECHO W/ DOPPLER 2019-01-22 13:16:[facility] LIPID PANEL 2019-01-22 04:17:00 [facility] HEMOGLOBIN A1C 2019-01-22 04:17:00 [facility] TROPONIN I 2019-01-22 04:17:00 [facility] MAGNESIUM 2019-01-22 04:17:00 Hilario [facility] BASIC METABOLIC PANEL (7) 2019-01-21 23:26:00 [facility] TROPONIN I 2019-01-21 23:26:00 [facility] TSH/FREE T4 IF INDICATED 2019-01-21 23:26:00 Iris Freeman [facility] RPR 2019-01-21 23:26:00 Iris Freeman [facility] VITAMIN B12 AND FOLATE 2019-01-21 23:26:00 Iris Freeman [facility] PROTHROMBIN TIME/INR 2019-01-21 23:26:00 Iris Freeman [facility] CBC W/PLT COUNT & AUTO 2019-01-21 23:26:00 Britton Hamilton CH I [facility] - DIFFERENTIAL [facility] XR CHEST 1 VIEW 2019-01-21 23:19:00 Iris Freeman [facility] - PORTABLE/BEDSIDE Medical Center Plan of Care Planned Activity Planned Date Details Comments Source Future Scheduled 2022-03-20 Lipid panel [facility] s - Test 00:00:00 (procedure) [code = Medical Center [id number]] Future Scheduled 2019-10-28 INFLUENZA VACCINE (#1) [facility] - Test 00:00:00 [code = INFLUENZA Medical Ce nter VACCINE (#1)] Future Scheduled 2019-10-21 [facility]CCAL [address]OW[facility] [code = PNEUMOCOCCAL 65+ LOW/MEDIUM RISK (1 of 2 - PCV13)] Future Scheduled 1955 [facility] - Test 00:00:00 malignant neoplasm of [facility] colon (procedure) [code = 659429860] Encounters Start End Encounter Admission Attending Care Care Encounter Source Date/Time Date/Time Type Type Clinicians Facility Department ID 2019-11-20 2019-11-20 [facility] [id number] 00:00:00 00:00:00 [facility] [id number] Helper [id number] Professio [phone] [place] [address] [address] 2019-11-13 2019-11-13 [facility] [id number] 00:00:00 00:00:00 [facility] [id number] Helper [id number] Professio [phone] [place] [address] [address] 2019-08-20 2019-08-20 [facility] [id number] 00:00:00 00:00:00 Wondiful A Helper [id number] [place] [id number] Professio [phone] [address] 2019-08-08 2019-08-08 Orders Doctor HYACINTH [id number] 00:00:00 00:00:00 Only Unassigned, MARIO [id number] [facility] [id number] 2019-08-07 2019-08-07 Office [place] [id number] 13:49:25 22:20:07 Visit Kinjal Figueroa [id number] [place] [id number] [place] [phone] n[place] 27 [place] [address] 2019-05-08 2019-05-08 Office CORNELL Andrews [id number] 10:44:48 16:34:59 Visit Fernando AMBULATOR 350.1.13.21 Y 0.2.7.2.686 [id number] Results Test Description Test Time Test Comments Results Result Comments Source POC-Glucose meter 2019-06-09 18:49:00 Test Item Value Reference Range Interpretation Comme [facility] POC-Glucose Meter (test code = 72 mg/dL 70-110 : TESTED AT [facility] [address], [address]: Platform Material Handler Manager/Techni aaron ID = [id number] for RYAN ECHOLS Lab Interpretation (test code = Normal 56593-5) [facility] [id number] 18:49:00 Test Item Value Reference Range Interpretation Comments POC-GLUCOSE METER 72 mg/dL 70-110 : [facility] ([employer] [facility]) (test code = [facility], 1538) [address]: Platform Material Handler Manager/Techni aaron ID = [id number] for RYAN NICE POCT-GLUCOSE [id number] 13:07:00 Test Item Value Reference Range Interpretation Comments POC-GLUCOSE METER 83 mg/dL 70-110 : TESTED A T [facility] 6720 (BEAKER) (test code = [facility], 1538) 48067: Platform Material Handler Manager/Techni aaron ID = [id number] for RYAN NICE Comprehensive metabolic [id number] 12:12:00 Test Item Value Reference Range Interpretation Comments Protein, Total (test 6.7 6.0- 8.3 gm/dL Speci men slightly code = 2885-2) hemolyzed Albumin (test code = 2.1 g/dL 3.5-5 L Specime n slightly 65303-0) hemolyzed Alkaline Phosphatase 202 U/L 40-150 H (test code = 6768-6) Total Bilirubin (test 1.2 mg/dL 0.2-1.2 Specim en slightly code = 1975-2) hemolyzed Sodium (test code = 142 meq/L 019-204 2006-2) Potassium (test code = 4.4 meq/L 3.5-5.1 [...] (test code = 7.9 mg/dL 8.4-10.2 L 94957-2) AST (test code = 77 U/L 5-34 H Specimen sl ightly 1920-8) hemolyzed ALT (test code = 86 U/L 6-55 H Specimen sl ightly 1742-6) hemolyzed EGFR (test code = 103 mL/min/1.73 [place] [address]-7) NOT ACCURATE CREATININE CLEARANCE IN PREDICTING GLOMERULAR FILTRATION RATE . ESTIMATED GFR I S NOT APPLICABLE FOR DIALYSIS PATIENTS. DORI (test code = DORI) Platform Material Handler Manager ID - ELISSA M Lab Interpretation Abnormal (test code = 83254-9) [facility] HospitalCOMPREHENSIVE METABOLIC [id number] 12:12:00 Test Item Value Reference Range Interpretation [...] S NOT APPLICABLE FOR DIALYSIS PATIEN TS. Platform Material Handler Manager ID - ELISSA MPOCT-GLUCOSE [id number] 06:17:00 Test Item Value Reference Range Interpretation Comments POC-GLUCOSE METER 105 mg/dL 70-110 : TESTED A T [facility] 6720 (BEAKER) (test code = [facility] [employer] [facility], 1538) [address]: Platform Material Handler Manager/Techni aaron ID = [id number] for DO SIMS ELIDIA POCT-GLUCOSE [id number] 23:52:00 Test Item Value Reference Range Interpretation Comments POC-GLUCOSE METER 97 mg/dL 70-110 : TESTED A T [facility] 6720 (BEAKER) (test code = [facility] [employer] [facility], 1538) [address]: Platform Material Handler Manager/Techni aaron ID = [id number] for ELIDIA BLACKWOOD POCT-GLUCOSE [id number] 18:31:00 Test Item Value Reference Range Interpretation Comments POC-GLUCOSE METER 102 mg/dL 70-110 : TESTED A T [facility] 6720 (BEAKER) (test code = [facility], 153) 02397: Platform Material Handler Manager/Techni aaron ID = [id number] for CO RTEZ, JOSY POCT-GLUCOSE [id number] 17:27:00 Test Item Value Reference Range Interpretation Comments POC-GLUCOSE METER 106 mg/dL 70-110 : TESTED A T [facility] 6720 (BEAKER) (test code = [facility], 153) 87390: Platform Material Handler Manager/Techni aaron ID = [id number] for RA GLAND, LATOYA POCT-GLUCOSE [id number] 23:31:00 Test Item Value Reference Range Interpretation Comments POC-GLUCOSE METER 101 mg/dL 70-110 : TESTED A T [facility] 6720 (BEAKER) (test code = [facility], 153) 853[address]: Platform Material Handler Manager/Techni aaron ID = [id number] for RA GLAND, LATOYA POCT-GLUCOSE [id number] 18:53:00 Test Item Value Reference Range Interpretation Comments POC-GLUCOSE METER 89 mg/dL 70-110 : TESTED A T [facility] 6720 (BEAKER) (test code [facility], [address]: = 1538) Platform Material Handler Manager/Techni aaron ID = [id number] for JAX CARDOSO POCT-GLUCOSE [id number] 17:25:00 Test Item Value Reference Range Interpretation Comments POC-GLUCOSE METER 67 mg/dL 70-110 L : TESTED A T [facility] 6720 (BEAKER) (test code = [facility], 153) 46789: Platform Material Handler Manager/Techni aaron ID = [id number] for KIRSTEN BRANCH POCT-GLUCOSE [id number] 14:28:00 Test Item Value Reference Range Interpretation Comments POC-GLUCOSE METER 88 mg/dL 70-110 : TESTED A T [facility] 6720 (BEAKER) (test code = [facility], 153) 12511: Platform Material Handler Manager/Techni aaron ID = [id number] for KIRSTEN BRANCH POCT-GLUCOSE [id number] 06:27:00 Test Item Value Reference Range Interpretation Comments POC-GLUCOSE METER 101 mg/dL 70-110 : TESTED A T [facility] 6720 (BEAKER) (test code = [facility], [facility]) 07[address]: Platform Material Handler Manager/Techni aaron ID = [id number] for RA GLAND, LATOYA POCT-GLUCOSE [id number] 23:55:00 Test Item Value Reference Range Interpretation Comments POC-GLUCOSE METER 97 mg/dL 70-110 : TESTED A T [facility] 6720 [facility] (test code = [facility], [facility]) 89189: Platform Material Handler Manager/Techni aaron ID = [id number] for RAGL AND, LATOYA POCT-GLUCOSE [id number] 17:59:00 Test Item Value Reference Range Interpretation Comments POC-GLUCOSE METER 92 mg/dL 70-110 : TESTED A T [facility] 6720 ([facility]) (test code = [facility], [facility]) [address]78: Platform Material Handler Manager/Techni aaron ID = [id number] for Cuco, Leeanna POCT-GLUCOSE [id number] 12:15:00 Test Item Value Reference Range Interpretation Comments POC-GLUCOSE METER 103 mg/dL 70-110 : TESTED A T [facility] 6720 (BEAKER) (test code = [facility], [facility]) 384[address]: Platform Material Handler Manager/Techni aaron ID = [id number] for Ree d, Leeanna POCT-GLUCOSE [id number] 05:55:00 Test Item Value Reference Range Interpretation Comments POC-GLUCOSE METER 105 mg/dL 70-110 : TESTED A T [facility] 6720 (BEAKER) (test code = [facility], [facility]) 87527: Platform Material Handler Manager/Techni aaron ID = [id number] for AHMET CASTELLANOS COMPREHENSIVE METABOLIC [id number] 04:31:00 Test Item Value Reference Range Interpretation Comments TOTAL PROTEIN 6.0 gm/dL 6.0-8.3 (BEAKER) (test code = 770) ALBUMIN (AKER) 1.9 g/dL 3.5-5.0 L (test code = [...] S NOT APPLICABLE FOR DIALYSIS PATIEN TS. Platform Material Handler Manager ID - SANDRA WPOCT-GLUCOSE [id number] 00:14:00 Test Item Value Reference Range Interpretation Comments POC-GLUCOSE METER 106 mg/dL 70-110 : TESTED A T [facility] 6720 ([employer]) (test code = [facility], 153) 25072: Platform Material Handler Manager/Techni aaron ID = [id number] for UE COSME, AHMET POCT-GLUCOSE [id number] 19:00:00 Test Item Value Reference Range Interpretation Comments POC-GLUCOSE METER 111 mg/dL 70-110 H : TESTED A T [facility] 6720 ([employer]) (test code = [facility], 153) 52656: Platform Material Handler Manager/Techni aaron ID = [id number] for CO RTEZ, JOSY POCT-GLUCOSE [id number] 17:05:00 Test Item Value Reference Range Interpretation Comments POC-GLUCOSE METER 101 mg/dL 70-110 : TESTED A T [facility] 6720 (BEAKER) (test code = [place], 1538) [address]: Platform Material Handler Manager/Techni aaron ID = [id number] for CO EZ, JOSY [id number] 17:03:00 Test Item Value Reference Range Interpretation Comments Potassium (test code = 3.9 meq/L 3.5-5.1 2823-3) DORI (test code = DORI) Platform Material Handler Manager ID - BS Lab Interpretation (test Normal code = 56070-9) [facility]UM2020-[facility]-09 17:03:00 Test Item Value Reference Range Interpretation Comments POTASSIUM (BEAKER) (test code = 3.9 meq/L 3.5-5.1 379) Platform Material Handler Manager ID - BSBlood Culture - Routine (Right Venipuncture)2019-06-05 10:00:00 Test Item Value Reference Range Interpretation Comments Result (test code = No growth in 5 days 6463-4) [facility] HospitalBLOOD [id number] 10:00:00 Test Item Value Reference Range Interpretation Comments CULTURE (BEAKER) (test No growth in 5 days code = 1095) Basic Metabolic [id number] 06:28:00 Test Item Value Reference Range Interpretation Comments Sodium (test code = 145 meq/L 528-346 2111-2) Potassium (test code = 3.0 meq/L 3.5-5.1 L 2823-3) Chloride (test code = 101 meq/L 98-107 2075-0) CO2 (test code = 38 meq/L 22-29 H 2028-9) BUN (test code = 28 mg/dL 7-21 H 3094-0) Creatinine (test code 0.87 mg/dL 0.57-1.25 = 2160-0) Glucose (test code = 110 mg/dL 70-105 H 2345-7) Calcium (test code = 7.9 mg/dL 8.4-10.2 L 40611-6) EGFR (test code = 88 mL/min/1.73 [place] [address]-9) NOT ACCURATE CREATININE CLEARANCE IN PREDICTING GLOMERULAR FILTRATION RATE . ESTIMATED GFR I S NOT APPLICABLE FOR DIALYSIS PATIENTS. DORI (test code = DORI) Platform Material Handler Manager ID - PIAYA L Lab Interpretation Abnormal (test code = 37607-7) [facility] HospitalBASA[facility] METABOLIC [id number] 06:28:00 Test Item Value Reference Range Interpretation [...] S NOT APPLICABLE FOR DIALYSIS PATIEN TS. Platform Material Handler Manager ID - PIAYA LPOCT-GLUCOSE [id number] 06:13:00 Test Item Value Reference Range Interpretation Comments POC-GLUCOSE METER 119 mg/dL 70-110 H : TESTED A T [facility] 6720 (BEAKER) (test code = [facility], 1538) 12015: Platform Material Handler Manager/Techni aaron ID = [id number] for UE COSME, AHMET BLOOD [id number] 03:01:00 Test Item Value Reference Range Interpretation Comments CULTURE (BEAKER) (test No growth in 5 days code = 1095) POCT-GLUCOSE [id number] 00:16:00 Test Item Value Reference Range Interpretation Comments POC-GLUCOSE METER 92 mg/dL 70-110 : TESTED A T [facility] 6720 (BEAKER) (test code = [facility], 1538) 642[address]: Platform Material Handler Manager/Techni aaron ID = [id number] for UEMA RU, AHMET POCT-GLUCOSE [id number] 17:55:00 Test Item Value Reference Range Interpretation Comments POC-GLUCOSE METER 104 mg/dL 70-110 : TESTED A T [facility] 6720 (BEAKER) (test code = [facility] [place], 1538) [address]: Platform Material Handler Manager/Techni aaron ID = [id number] for AN GULO, GEM FL, ESOPH, SWALLOW FUNCTION, WITH CINE OR [id number] 15:08:00Reason for exam:->dysphagiaFINAL REPORT EXAMINATION: Modified barium [...] Lucas Verified Date/Time: 06/04/2019 15:08:42 Reading Location: [address] Transitional Reading Room F esoph swallow funct with cine [id number] 15:08:00 Interface, External Ris In - 06/09/2019 [...] Lucas Verified Date/Time: 06/04/2019 15:08:42 Reading Location: [address] Transitional Reading Room Electronically signed by: FREDI LUCAS MDon 06/04/2019 03:08 [facility] [id number] 11:56:00 Test Item Value Reference Range Interpretation Comments POC-GLUCOSE METER 111 mg/dL 70-110 H : TESTED A T [facility] 6720 (BEAKER) (test code = [facility] [place] [facility], 1538) 99[address]: Platform Material Handler Manager/Techni aaron ID = [id number] for AN GEM CUMMINGS POCT-GLUCOSE [id number] 06:18:00 Test Item Value Reference Range Interpretation Comments POC-GLUCOSE METER 110 mg/dL 70-110 : TESTED A T [facility] 6720 (BEAKER) (test code = [facility] [employer] [facility], 1538) [address]: Platform Material Handler Manager/Techni aaron ID = [id number] for ELIDIA VALDES COMPREHENSIVE METABOLIC [id number] 05:51:00 Test Item Value Reference Range Interpretation [...] S NOT APPLICABLE FOR DIALYSIS PATIEN TS. Platform Material Handler Manager ID - ELISSA MCBC with platelet count + automated [id number] 05:29:00 Test Item Value Reference Range Interpretation [...] 450 K/CU MM MPV (test code = 03543-9) 12.3 fL 9.4-12.4 nRBC (test code = [...] 2801) Lab Interpretation (test code = Abnormal 54476-3) [facility] W/PLT COUNT & AUTO [id number] 05:29:00 Test Item Value Reference Range Interpretation [...] (BEAKER) (test code = 2801) U/S, ABDOMINAL, [id number] 04:00:00Abdomen limited area? Add comment if clarification [...] Reji Tyler Verified Date/Time:06/04/2019 04:00:37 US abdomen [id number] 04:00:00 Interface, External Ris In - 06/04/2019 [...] LFTs.Signed: Reji Tyler Verified Date/Time: 06/04/2019 04:00:37 [facility] [id number] 23:50:00 Test Item Value Reference Range Interpretation Comments POC-GLUCOSE METER 115 mg/dL 70-110 H : TESTED A T [facility] 6720 (BEAKER) (test code = [facility] [place] [facility], 1538) [address]: Platform Material Handler Manager/Techni aaron ID = [id number] for ELIDIA VALDES POCT-GLUCOSE [id number] 18:03:00 Test Item Value Reference Range Interpretation Comments POC-GLUCOSE METER 126 mg/dL 70-110 H : TESTED A T [facility] 6720 (BEAKER) (test code = [facility] [place] [facility], 1538) 9[address]: Platform Material Handler Manager/Techni aaron ID = [id number] for ALAN BONILLA [id number] 15:27:00 Test Item Value Reference Range Interpretation Comments Ammonia (test code = 82 18- 72 mol/L H 25088-1) DORI (test code = DORI) Platform Material Handler Manager ID - BS Lab Interpretation (test Abnormal code = 70932-8) [facility] HospitalAMMONIA2020-04-07 15:27:00 Test Item Value Reference Range Interpretation Comments AMMONIA (BEAKER) (test code = 348) 82 mol/L 18-72 H Platform Material Handler Manager ID - BSMRSA sanuvz1505-09-22 12:47:00 Test Item Value Reference Range Interpretation Comments Result (test code = 6463-4) No MRSA isolated [facility] HospitalMRSA [id number] 12:47:00 Test Item Value Reference Range Interpretation Comments CULTURE (BEAKER) (test code No MRSA isolated = 1095) POCT-GLUCOSE [id number] 12:25:00 Test Item Value Reference Range Interpretation Comments POC-GLUCOSE METER 123 mg/dL 70-110 H : TESTED A T [facility] 6720 (BEAKER) (test code = [facility] [place] [facility], 1538) 47603: Platform Material Handler Manager/Techni aaron ID = [id number] for ALAN BONILLA POCT-GLUCOSE [id number] 06:32:00 Test Item Value Reference Range Interpretation Comments POC-GLUCOSE METER 106 mg/dL 70-110 : TESTED A T [facility] 6720 (BEAKER) (test code = [facility] [place] [facility], 1538) 56950: Platform Material Handler Manager/Techni aaron ID = [id number] for ELIDIA VALDES [id number] 06:13:00 Test Item Value Reference Range Interpretation Comments Magnesium (test code = 2.2 mg/dL 1.6-2.6 Speci men 50624-2) slightly hemolyzed DORI (test code = DORI) Platform Material Handler Manager ID - BS Lab Interpretation Normal (test code = 62689-9) [facility] 06:13:00 Test Item Value Reference Range Interpretation Comments MAGNESIUM (BEAKER) 2.2 mg/dL 1.6-2.6 Specimen slightly (test code = 627) hemolyzed Platform Material Handler Manager ID - BSCOMPREHENSIVE METABOLIC [id number] 06:13:00 Test Item Value Reference Range Interpretation [...] S NOT APPLICABLE FOR DIALYSIS PATIEN TS. Platform Material Handler Manager ID - BSCBC W/PLT COUNT & AUTO [id number] 05:58:00 Test Item Value Reference Range Interpretation [...] PERCENT (BEAKER) (test code = 2801) POCT-GLUCOSE [id number] 00:22:00 Test Item Value Reference Range Interpretation Comments POC-GLUCOSE METER 133 mg/dL 70-110 H : TESTED A T [facility] 6720 (BEAKER) (test code = [facility], 1538) 22892: Platform Material Handler Manager/Techni aaron ID = [id number] for DO WILDELAZARADEJAHELIDIA POCT-GLUCOSE [id number] 18:09:00 Test Item Value Reference Range Interpretation Comments POC-GLUCOSE METER 129 mg/dL 70-110 H : TESTED A T [facility] 6720 (BEAKER) (test code = [facility], 1538) 63542: Platform Material Handler Manager/Techni aaron ID = [id number] for FÁTIMA VIKDONRYAN BASIC METABOLIC [id number] 16:10:00 Test Item Value Reference Range Interpretation [...] S NOT APPLICABLE FOR DIALYSIS PATIEN TS. Platform Material Handler Manager ID - BSPOCT-GLUCOSE [id number] 12:41:00 Test Item Value Reference Range Interpretation Comments POC-GLUCOSE METER 120 mg/dL 70-110 H : TESTED A T [facility] 6720 (BEAKER) (test code = [place], 1538) [address]68: Platform Material Handler Manager/Techni aaron ID = [id number] for DE RYAN PLEITEZ Blood gas, [id number] 08:24:00 Test Item Value Reference Range Interpretation [...] % Lab Interpretation (test code = Abnormal 70466-8) [facility] HospitalBLOOD GAS, [id number] 08:24:00 Test Item Value Reference Range Interpretation [...] (test code = 1819) 21.0 % POCT-GLUCOSE [id number] 08:22:00 Test Item Value Reference Range Interpretation Comments POC-GLUCOSE METER 143 mg/dL 70-110 H : TESTED A T [facility] 6720 (BEAKER) (test code = [place], 1538) 52985: Platform Material Handler Manager/Techni aaron ID = [id number] for MS IBI, MNCEDISI ECG 12 [id number] 07:02:11Interface, External Ris In - 06/02/2019 7:02 AM CDTVentricular Rate 83 BPMAtrial Rate 76 BPMQRS Duration 122 msQ-T Interval 376 msQTC Calculation(Bazett) 441 msR Frederick 9 degreesT Frederick 168 degreesAtrial fibrillationLeft ventricular hypertrophy with QRS wideningNonspecific ST and T wave abnormalityAbnormal ECGWhen compared with ECG of 30-MAY-2019 19:25,No significant change was foundConfirmed by MD SANAZ, GETACHEW ([id number]) on 06/02/2019 7:02:10 [facility]MAGN[facility]UM2020-[facility]-06 03:10:00 Test Item Value Reference Range Interpretation Comments MAGNESIUM (BEAKER) (test code = 1.9 mg/dL 1.6-2.6 627) Platform Material Handler Manager ID - SANDRA WCOMPREHENSIVE METABOLIC [id number] 02:30:00 Test Item Value Reference Range Interpretation [...] S NOT APPLICABLE FOR DIALYSIS PATIEN TS. Platform Material Handler Manager ID Sultana RichardsVancomycin level, [id number] 02:22:00 Test Item Value Reference Range Interpretation Comments Vancomycin Tr (test code = 32.2 ug/mL 10-20 4092-3) DORI (test code = DORI) Platform Material Handler Manager ID - SANDRA W Lab Interpretation (test Abnormal code = 67842-5) [facility] HospitalVANCOMYCIN LEVEL, [id number] 02:22:00 Test Item Value Reference Range Interpretation Comments VANCOMYCIN TROUGH (BEAKER) (test 32.2 ug/mL 10.0-20.0 HH code = 522) Platform Material Handler Manager ID Sultana FLORES WCBC W/PLT COUNT & AUTO [id number] 02:07:00 Test Item Value Reference Range Interpretation [...] PERCENT (BEAKER) (test code = 2801) POCT-GLUCOSE [id number] 23:29:00 Test Item Value Reference Range Interpretation Comments POC-GLUCOSE METER 93 mg/dL 70-110 : TESTED A T [facility] 6720 (BEAKER) (test code = IL[place], 1538) 70399: Platform Material Handler Manager/Techni aaron ID = [id number] for MSIB I, MATTCEDISI POCT-GLUCOSE [id number] 18:01:00 Test Item Value Reference Range Interpretation Comments POC-GLUCOSE METER 80 mg/dL 70-110 : TESTED A T [facility] 6720 (YELITZA) (test code = [place], 1538) 79[address]: Platform Material Handler Manager/Techni aaron ID = [id number] for GEM MOREJON 2D Echo W/Doppler(CW/PW/Color)2019-06-01 17:21:41Ejection FractionSLEH ECHO HEARTLAB MKCKESSON CPACSInterface, External Ris In - 06/01/2019 5:21 PM C DTTransthoracic Echocardiography Report (TTE) Demographics Patient Name JOHN DELUNA Date of Study 06/01/2019 Gender Male Visit Number [id number] Race Unknown Room Number C724 Number Date of 1955 Referring Physician Ole Dominguez MD Age 63 year(s) Bar Examiner Isael Goldenf Manager Simulation Aliya Yee Interpreting Isaac Gonzalez Physician Procedure [...] CO: 4.9 l/min LVOT CI: 2.59 l/min/m^2[facility] HospitalPO[facility] METER 2019-06-01 12:05:00 Test Item Value Reference Range Interpretation Comments POC-GLUCOSE METER 77 mg/dL 70-110 : TESTED A T [facility] 6720 (YELITZA) (test code = [place], 1538) 289[address]: Platform Material Handler Manager/Techni aaron ID = [id number] for GEM MOREJON BASIC METABOLIC [id number] 11:33:00 Test Item Value Reference Range Interpretation [...] S NOT APPLICABLE FOR DIALYSIS PATIEN TS. Platform Material Handler Manager ID Sultana SCOTT [id number] 11:30:00 Test Item Value Reference Range Interpretation Comments Phosphorus (test code = 4.3 mg/dL 2.3-4.7 2777-1) DORI (test code = DORI) Platform Material Handler Manager ID Sultana SCOTT F Lab Interpretation (test Normal code = 60122-5) [facility] HospitalPHOSPHORUS2020-04-05 11:30:00 Test Item Value Reference Range Interpretation Comments PHOSPHORUS (BEAKER) (test code = 4.3 mg/dL 2.3-4.7 604) Platform Material Handler Manager ID Sultana SCOTT [id number] 11:30:00 Test Item Value Reference Range Interpretation Comments MAGNESIUM (BEAKER) (test code = 1.7 mg/dL 1.6-2.6 627) Platform Material Handler Manager ID Sultana SCOTT FCBC W/PLT COUNT & AUTO [id number] 11:20:00 Test Item Value Reference Range Interpretation [...] PERCENT (BEAKER) (test code = 2801) POCT-GLUCOSE [id number] 07:42:00 Test Item Value Reference Range Interpretation Comments POC-GLUCOSE METER 82 mg/dL 70-110 : TESTED [facility] 6720 (BEAKER) (test code = [place], 1538) 13754: Platform Material Handler Manager/Techni aaron ID = [id number] for RAGL AND, LATOYA POCT-GLUCOSE [id number] 23:33:00 Test Item Value Reference Range Interpretation Comments POC-GLUCOSE METER 90 mg/dL 70-110 : TESTED A T [facility] 6720 (BEAKER) (test code = [facility], 1538) 47176: Platform Material Handler Manager/Techni aaron ID = [id number] for RAGL AND, LATOYA POCT-GLUCOSE [id number] 18:34:00 Test Item Value Reference Range Interpretation Comments POC-GLUCOSE METER 83 mg/dL 70-110 : TESTED A T [facility] 6720 (BEAKER) (test code = [facility], 1538) 41396: Platform Material Handler Manager/Techni aaron ID = [id number] for ANGU LO, GEM POCT-GLUCOSE [id number] 18:27:00 Test Item Value Reference Range Interpretation Comments POC-GLUCOSE METER 88 mg/dL 70-110 : TESTED A T [facility] 6720 (BEAKER) (test code = [facility], 1538) 40850: Platform Material Handler Manager/Techni aaron ID = [id number] for ANGU LO, GEM POCT-GLUCOSE [id number] 18:22:00 Test Item Value Reference Range Interpretation Comments POC-GLUCOSE METER 84 mg/dL 70-110 : TESTED A T [facility] 6720 (BEAKER) (test code = [facility], [facility]8) 11131: Platform Material Handler Manager/Techni aaron ID = [id number] for ELIDIA BLACKWOOD Prothrombin time/[id number] 11:01:00 Test Item Value Reference Range Interpretation [...] valves. Lab Interpretation Abnormal (test code = 10582-4) [facility] HospitalPROTHROMBIN TIME/[id number] 11:01:00 Test Item Value Reference Range Interpretation [...] for patients wiht mechanical heart valves.Hepatitis panel, [id number] 09:24:00 Test Item Value Reference Range Interpretation Comments Hep A IgM (test code = Reactive Nonreactive A 81456-7) Hep B C IgM (test code = Nonreactive Nonreactive 00702-1) Hepatitis C Ab (test Nonreactive Nonreactive code = 79243-1) HBsAg Screen (test code Nonreactive Nonreactive = 5195-3) DORI (test code = DORI) Platform Material Handler Manager ID - SONIA Lloyd Lab Interpretation (test Abnormal code = 78580-6) [facility] HospitalHEPATITIS PANEL, [id number] 09:24:00 Test Item Value Reference Range Interpretation Comments HEPATITIS A IGM ANTIBODY (BEAKER) Reactive Nonreactive A (test code = 498) HEPATITIS B CORE IGM ANTIBODY Nonreactive Nonreactive (BEAKER) (test code = 645) HEPATITIS C ANTIBODY (BEAKER) Nonreactive Nonreactive (test code = 367) HEPATITIS B SURFACE ANTIGEN (2) Nonreactive Nonreactive (BEAKER) (test code = 2585) Platform Material Handler Manager ID - SONIA FB-type Natriuretic Factor (BNP)2019-05-31 09:06:00 Test Item Value Reference Range Interpretation Comments BNP (test code = 25109-1) 1536 pg/mL 0-100 H DORI (test code = DORI) Platform Material Handler Manager ID - ALMA [facility] Interpretation (test Abnormal code = 49295-4) [facility] (BNP)2019-05-31 09:06:00 Test Item Value Reference Range Interpretation Comments B-TYPE NATRIURETIC PEPTIDE 1536 pg/mL 0-100 H (BEAKER) (test code = 700) Platform Material Handler Manager ID - ALMA WCOMPREHENSIVE METABOLIC [id number] 09:02:00 Test Item Value Reference Range Interpretation [...] S NOT APPLICABLE FOR DIALYSIS PATIEN TS. Platform Material Handler Manager ID Sultana MARQUEZ WVancomycin level, [id number] 08:59:00 Test Item Value Reference Range Interpretation Comments Vancomycin Rm (test 18.6 ug/mL code = 26698-9) DORI (test code = Reference Range: No DORI) NormalsOperator ID - ALMA Richards [facility] HospitalVANCOMYCIN LEVEL, [id number] 08:59:00 Test Item Value Reference Range Interpretation Comments VANCOMYCIN RANDOM (BEAKER) (test 18.6 ug/mL code = 523) Reference Range: No NormalsOperator ID - ALMA WCBC W/PLT COUNT & AUTO [id number] 08:43:00 Test Item Value Reference Range Interpretation [...] (BEAKER) (test code = 2801) Creatinine, random [id number] 05:47:00 Test Item Value Reference Range Interpretation Comments Creatinine, Ur 24.9 mg/dL (test code = 2161-8) DORI (test code = Reference Range: No DORI) NormalsOperator ID - PIAYA L [facility] Centerodium, random [id number] 05:47:00 Test Item Value Reference Range Interpretation Comments Sodium Urine (test 59 meq/L code = 2955-3) DORI (test code = Reference Range: No DORI) NormalsOperator ID - PIAYA L [facility] Nitrogen, random [id number] 05:47:00 Test Item Value Reference Range Interpretation Comments Urea Nitrogen, Ur 332 mg/dL (test code = 3095-7) DORI (test code = Reference Range: No DORI) NormalsOperator ID - PIAYA L [facility] HospitalCREATININE, RANDOM [id number] 05:47:00 Test Item Value Reference Range Interpretation Comments CREATININE URINE (BEAKER) (test 24.9 mg/dL code = 375) Reference Range: No NormalsOperator ID - PIAYA LSODIUM, RANDOM [id number] 05:47:00 Test Item Value Reference Range Interpretation Comments SODIUM URINE (BEAKER) (test code = 59 meq/L 243) Reference Range: No NormalsOperator ID - PIAYA LUREA NITROGEN, RANDOM URINE 2019-05-31 05:47:00 Test Item Value Reference Range Interpretation Comments UREA NITROGEN URINE (BEAKER) (test 332 mg/dL code = 538) Reference Range: No NormalsOperator ID - PIAYA LPOCT-GLUCOSE [id number] 00:03:00 Test Item Value Reference Range Interpretation Comments POC-GLUCOSE METER 89 mg/dL 70-110 : TESTED A T [facility] 6720 (YELITZA) (test code = ILDA [place], 1538) [address]: Platform Material Handler Manager/Techni aaron ID = [id number] for ELIDIA BLACKWOOD RAD, CHEST, 1 VIEW, NON [id number] 22:00:00Reason for exam:->Pt with noted OSH R [...] 22:00:23 XR chest 1 view portable / [id number] 22:00:00Interface, External Ris In - 05/30/2019 10:02 [...] Reji Tyler MDReport Verified Date/Time: 05/30/2019 22:00:23 [facility] CenterCOMPREHENS[facility] METABOL[facility] [id number] 21:22:00 Test Item Value Reference Range Interpretation [...] S NOT APPLICABLE FOR DIALYSIS PATIEN TS. Platform Material Handler Manager ID - CDPPROTHROMBIN TIME/[id number] 21:14:00 Test Item Value Reference Range Interpretation [...] mechanical heart valves.CBC W/PLT COUNT & AUTO [id number] 21:08:00 Test Item Value Reference Range Interpretation [...] (test code = No acid fast bacilli 25198-5) seen [facility] HospitalAF[facility] + SMEAR (NON-SPUTUM)2019-05-26 15:52:00 Test [...] code = 994) seen FUNGUS CULTURE + [id number] 16:19:00 Test Item Value Reference Range Interpretation Comments CULTURE (BEAKER) (test No fungus isolated in code = 1095) 28 days FUNGUS SMEAR (BEAKER) No fungi seen (test code = 1406) FUNGUS CULTURE + [id number] 16:19:00 Test Item Value Reference Range Interpretation Comments CULTURE (BEAKER) (test No fungus isolated in code = 1095) 28 days FUNGUS SMEAR (BEAKER) <1+ yeast (test code = 1406) FUNGUS CULTURE + [id number] 16:19:00 Test Item Value Reference Range Interpretation Comments CULTURE (BEAKER) (test No fungus isolated in code = 1095) 28 days FUNGUS SMEAR (BEAKER) <1+ yeast (test code = 1406) FUNGUS CULTURE + [id number] 16:19:00 Test Item Value Reference Range Interpretation Comments CULTURE (BEAKER) (test No fungus isolated in code = 1095) 28 days FUNGUS SMEAR (BEAKER) No fungi seen (test code = 1406) FUNGUS CULTURE + [id number] 16:19:00 Test Item Value Reference Range Interpretation Comments CULTURE (BEAKER) (test No fungus isolated in code = 1095) 28 days FUNGUS SMEAR (BEAKER) <1+ yeast (test code = 1406) RAD, CHEST, 2 [id number] 08:51:00Reason for Exam:->PLEURAL EFFUSIONFINAL REPORT EXAMINATION: PA [...] Hua Verified Date/Time: 05/09/2019 08:51:36 Reading Location: [facility] Room [address] [place] [address] XR chest 2 [id number] 08:51:00Interface, External Ris In - 05/09/2019 8:53 [...] Hua Verified Date/Time: 05/09/2019 08:51:36 Reading Location: [facility] Reading Room [address] [place] [address] [facility] ([facility]-SPUTUM)2019-05-06 22:55:00 Test [...] code = 994) seen Fungus culture + [id number] 17:35:00 Test Item Value Reference Range Interpretation Comments Result (test code = <1+ Ana A 6463-4) albicans Fungus Smear (test code = No fungi seen 1406) Lab Interpretation (test Abnormal code = 96096-6) [facility] HospitalFUN[facility] CULTURE + [id number] 17:35:00 Test Item Value Reference Range Interpretation Comments CULTURE (BEAKER) A <1+ Ana albicans (test code = 1095) FUNGUS SMEAR No fungi seen (BEAKER) (test code = 1406) RAD, CHEST, 1 VIEW, NON [id number] 08:25:00Reason for exam:->s/p R VATSShould this be [...] MDReport Verified Date/Time: 04/25/2019 08:25:05 Reading Location: [facility] Radiology Reading Room CBC W/PLT COUNT & AUTO [id number] 07:17:00 Test Item Value Reference Range Interpretation [...] 0-1 PERCENT (BEAKER) (test code = 2801) [id number] 06:30:00 Test Item Value Reference Range Interpretation Comments PHOSPHORUS (BEAKER) (test code = 2.6 mg/dL 2.3-4.7 604) Platform Material Handler Manager ID - PIAYA [id number] 06:30:00 Test Item Value Reference Range Interpretation Comments MAGNESIUM (BEAKER) (test code = 1.7 mg/dL 1.6-2.6 627) Platform Material Handler Manager ID - PIAYA LBASIC METABOLIC [id number] 06:30:00 Test Item Value Reference Range Interpretation [...] S NOT APPLICABLE FOR DIALYSIS PATIEN TS. Platform Material Handler Manager ID Sultana PHAN LRAD, CHEST, 1 VIEW, NON [id number] 09:38:00Reason for exam:->s/p R VATSShould this be [...] MDReport Verified Date/Time: 04/24/2019 09:38:07 Reading Location: [facility] Radiology Reading Room BASIC METABOLIC [id number] 06:26:00 Test Item Value Reference Range Interpretation [...] S NOT APPLICABLE FOR DIALYSIS PATIEN TS. Platform Material Handler Manager ID - EMILIE LSpecimen slightly [id number] 06:19:00 Test Item Value Reference Range Interpretation Comments PHOSPHORUS (BEAKER) (test code = 3.3 mg/dL 2.3-4.7 604) Platform Material Handler Manager ID Sultana PHAN [id number] 06:19:00 Test Item Value Reference Range Interpretation Comments MAGNESIUM (BEAKER) (test code = 1.8 mg/dL 1.6-2.6 627) Platform Material Handler Manager ID Sultana PHAN LCBC W/PLT COUNT & AUTO [id number] 04:39:00 Test Item Value Reference Range Interpretation [...] FL, ESOPH, SWALLOW FUNCTION, WITH CINE OR [id number] 14:55:00Reason for exam:->dysphagiaFINAL REPORT Modified barium swallow [...] [place]cada Verified Date/Time: 04/23/2019 14:55:57 Reading Location: [address] , CHEST, 1 VIEW, NON [id number] 14:41:00Reason for exam:->s/p ct removalShould this be [...] MDReport Verified Date/Time: 04/23/2019 14:41:23 Reading Location: [facility] Radiology Reading Room RAD, CHEST, 1 VIEW, NON [id number] 09:12:00Reason for exam:->s/p R VATSShould this be [...] MDReport Verified Date/Time: 04/23/2019 09:12:53 Reading Location: [facility] Radiology Reading Room BASIC METABOLIC [id number] 05:25:00 Test Item Value Reference Range Interpretation [...] S NOT APPLICABLE FOR DIALYSIS PATIEN TS. Platform Material Handler Manager ID - ELISSA [id number] 05:24:00 Test Item Value Reference Range Interpretation Comments Prealbumin (test code = 7 mg/dL 14-45 L 90967-0) DORI (test code = DORI) Platform Material Handler Manager ID - ELISSA M Lab Interpretation (test Abnormal code = 17612-2) [facility] HospitalPREAL[facility]UMIN2020-02-26 05:24:00 Test Item Value Reference Range Interpretation Comments PREALBUMIN (BEAKER) (test code = 586) 7 mg/dL 14-45 L Platform Material Handler Manager ID - ELISSA [id number] 05:23:00 Test Item Value Reference Range Interpretation Comments PHOSPHORUS (BEAKER) (test code = 2.8 mg/dL 2.3-4.7 604) Platform Material Handler Manager ID - ELISSA [id number] 05:23:00 Test Item Value Reference Range Interpretation Comments MAGNESIUM (BEAKER) (test code = 1.9 mg/dL 1.6-2.6 627) Platform Material Handler Manager ID - ELISSA MCBC W/PLT COUNT & AUTO [id number] 04:58:00 Test Item Value Reference Range Interpretation [...] = 2801) RAD, CHEST, 1 VIEW, NON [id number] 10:13:00Reason for exam:->s/p R VATSShould this be [...] MDReport Verified Date/Time: 04/22/2019 10:13:43 Reading Location: [facility] Radiology Reading Room 10:13 AMBASIC METABOLIC [id number] 04:59:00 Test Item Value Reference Range Interpretation [...] S NOT APPLICABLE FOR DIALYSIS PATIEN TS. Platform Material Handler Manager ID - ELISSA [id number] 04:57:00 Test Item Value Reference Range Interpretation Comments PHOSPHORUS (BEAKER) (test code = 2.7 mg/dL 2.3-4.7 604) Platform Material Handler Manager ID - ELISSA [id number] 04:57:00 Test Item Value Reference Range Interpretation Comments MAGNESIUM (BEAKER) (test code = 1.9 mg/dL 1.6-2.6 627) Platform Material Handler Manager ID - ELISSA MCBC W/PLT COUNT & AUTO [id number] 03:33:00 Test Item Value Reference Range Interpretation [...] PERCENT (BEAKER) (test code = 2801) Anaerobic [id number] 17:25:00 Test Item Value Reference Range Interpretation Comments Result (test code = No anaerobes isolated 6463-4) [facility] [id number] 17:25:00 Test Item Value Reference Range Interpretation Comments CULTURE (BEAKER) (test No anaerobes isolated code = 1095) ANAEROBIC [id number] 17:24:00 Test Item Value Reference Range Interpretation Comments CULTURE (BEAKER) (test No anaerobes isolated code = 1095) ANAEROBIC [id number] 17:24:00 Test Item Value Reference Range Interpretation Comments CULTURE (BEAKER) (test No anaerobes isolated code = 1095) ANAEROBIC [id number] 17:23:00 Test Item Value Reference Range Interpretation Comments CULTURE (BEAKER) (test No anaerobes isolated code = 1095) ANAEROBIC [id number] 17:23:00 Test Item Value Reference Range Interpretation Comments CULTURE (BEAKER) (test No anaerobes isolated code = 1095) BASIC METABOLIC [id number] 12:47:00 Test Item Value Reference Range Interpretation [...] S NOT APPLICABLE FOR DIALYSIS PATIEN TS. Platform Material Handler Manager ID Sultana SCOTT [id number] 12:46:00 Test Item Value Reference Range Interpretation Comments MAGNESIUM (BEAKER) 2.2 mg/dL 1.6-2.6 Specimen slightly (test code = 627) hemolyzed Platform Material Handler Manager ANGELI SCOTT FBASIC METABOLIC [id number] 05:36:00 Test Item Value Reference Range Interpretation [...] S NOT APPLICABLE FOR DIALYSIS PATIEN TS. Platform Material Handler Manager ID Sultana FLORES [id number] 05:32:00 Test Item Value Reference Range Interpretation Comments PHOSPHORUS (BEAKER) (test code = 3.4 mg/dL 2.3-4.7 604) Platform Material Handler Manager ID - SANDRA [id number] 05:32:00 Test Item Value Reference Range Interpretation Comments MAGNESIUM (BEAKER) (test code = 2.0 mg/dL 1.6-2.6 627) Platform Material Handler Manager ID - SANDRA WCBC W/PLT COUNT & AUTO [id number] 05:07:00 Test Item Value Reference Range Interpretation [...] = 2801) RAD, CHEST, 1 VIEW, NON [id number] 04:30:00Reason for exam:->s/p R VATSShould this be [...] MDReport Verified Date/Time: 04/21/2019 04:30:21 BASIC METABOLIC [id number] 16:21:00 Test Item Value Reference Range Interpretation [...] S NOT APPLICABLE FOR DIALYSIS PATIEN TS. Platform Material Handler Manager ID Sultana SONIA [id number] 15:52:00 Test Item Value Reference Range Interpretation Comments PHOSPHORUS (BEAKER) (test code = 2.7 mg/dL 2.3-4.7 604) Platform Material Handler Manager ID Sultana SCOTT [id number] 15:52:00 Test Item Value Reference Range Interpretation Comments MAGNESIUM (BEAKER) (test code = 2.0 mg/dL 1.6-2.6 627) Platform Material Handler Manager ID - SONIA FCBC W/PLT COUNT & AUTO [id number] 15:27:00 Test Item Value Reference Range Interpretation [...] PERCENT (BEAKER) (test code = 2801) POCT-GLUCOSE [id number] 12:28:00 Test Item Value Reference Range Interpretation Comments POC-GLUCOSE METER 104 mg/dL 70-110 : TESTED A T [facility] 6720 (BEAKER) (test code = ILDA [place], 1538) [address]: Platform Material Handler Manager/Techni aaron ID = [id number] for RE SERA, JON RAD, CHEST, 1 VIEW, NON [id number] 08:05:00Reason for exam:->s/p R VATSShould this be [...] MDReport Verified Date/Time: 04/20/2019 08:05:30 Reading Location: [address] Neuro Reading Room BASIC METABOLIC PANEL [...] S NOT APPLICABLE FOR DIALYSIS PATIEN TS. Platform Material Handler Manager ID - [id number] 04:57:00 Test Item Value Reference Range Interpretation Comments PHOSPHORUS (BEAKER) (test code = 3.9 mg/dL 2.3-4.7 604) Platform Material Handler Manager ID - [id number] 04:57:00 Test Item Value Reference Range Interpretation Comments MAGNESIUM (BEAKER) (test code = 2.2 mg/dL 1.6-2.6 627) Platform Material Handler Manager ID - DBCBC W/PLT COUNT & AUTO [id number] 03:45:00 Test Item Value Reference Range Interpretation [...] PERCENT (BEAKER) (test code = 2801) POCT-GLUCOSE [id number] 00:19:00 Test Item Value Reference Range Interpretation Comments POC-GLUCOSE METER 115 mg/dL 70-110 H : TESTED A T [facility] 6720 (BEAKER) (test code = ILDA [place], 1538) [address]: Platform Material Handler Manager/Techni aaron ID = [id number] for DC MS, NEEL FUNGUS CULTURE + [id number] 18:47:00 Test Item Value Reference Range Interpretation Comments CULTURE (BEAKER) (test No fungus isolated in code = 1095) 28 days FUNGUS SMEAR (BEAKER) No fungi seen (test code = 1406) FUNGUS CULTURE + [id number] 18:47:00 Test Item Value Reference Range Interpretation Comments CULTURE (BEAKER) (test No fungus isolated in code = 1095) 28 days FUNGUS SMEAR (BEAKER) No fungi seen (test code = 1406) FUNGUS CULTURE + [id number] 18:35:00 Test Item Value Reference Range Interpretation Comments CULTURE (BEAKER) (test No fungus isolated in code = 1095) 28 days FUNGUS SMEAR (BEAKER) No fungi seen (test code = 1406) [id number] 18:02:00 Test Item Value Reference Range Interpretation Comments PHOSPHORUS (BEAKER) (test code = 1.3 mg/dL 2.3-4.7 LL 604) Platform Material Handler Manager ID - SONIA FBASIC METABOLIC [id number] 17:59:00 Test Item Value Reference Range Interpretation [...] S NOT APPLICABLE FOR DIALYSIS PATIEN TS. Platform Material Handler Manager ID - SONIA [id number] 17:58:00 Test Item Value Reference Range Interpretation Comments MAGNESIUM (BEAKER) (test code = 2.1 mg/dL 1.6-2.6 627) Platform Material Handler Manager ID - SONIA FCBC W/PLT COUNT & AUTO [id number] 17:41:00 Test Item Value Reference Range Interpretation [...] = 2801) RAD, CHEST, 1 VIEW, NON [id number] 09:28:00Reason for exam:->s/p R VATSShould this be [...] GarciaMDReport Verified Date/Time: 04/19/2019 09:28:51 Reading Location: [address] Neuro Reading Room BASIC METABOLIC [id number] 04:18:00 Test Item Value Reference Range Interpretation [...] S NOT APPLICABLE FOR DIALYSIS PATIEN TS. Platform Material Handler Manager ID - ELISSA [id number] 04:16:00 Test Item Value Reference Range Interpretation Comments MAGNESIUM (BEAKER) 1.8 mg/dL 1.6-2.6 Specimen slightly (test code = 627) hemolyzed Platform Material Handler Manager ID - ELISSA [id number] 04:16:00 Test Item Value Reference Range Interpretation Comments PHOSPHORUS (BEAKER) 1.9 mg/dL 2.3-4.7 L Specimen slightly (test code = 604) hemolyzed Platform Material Handler Manager ID - ELISSA MCBC W/PLT COUNT & AUTO [id number] 03:48:00 Test Item Value Reference Range Interpretation [...] PERCENT (BEAKER) (test code = 2801) POCT-GLUCOSE [id number] 00:35:00 Test Item Value Reference Range Interpretation Comments POC-GLUCOSE METER 104 mg/dL 70-110 : TESTED A T [facility] 6720 (BEAKER) (test code = ILDA UMA[place], 1538) [address]: Platform Material Handler Manager/Techni aaron ID = [id number] for NEEL DAVALOS MS Prepare Leuko-Red [id number] 23:54:00 Test Item Value Reference Range Interpretation Comments CROSSMATCH (test code = 2264) COMPATIBLE Unit ABO (test code = A Neg 5942222) UNIT NUMBER (test code = [id number] 934-0) Status (test code = 1861334) TX_TIMEINCHART Blood Bank Product (test code RED BLOOD CELLS = 2263) PRODUCT CODE (test code = V1156V68 933-2) [facility] METABOLIC [id number] 19:39:00 Test Item Value Reference Range Interpretation [...] S NOT APPLICABLE FOR DIALYSIS PATIEN TS. Platform Material Handler Manager ID - [id number] 19:37:00 Test Item Value Reference Range Interpretation Comments PHOSPHORUS (BEAKER) (test code = 1.8 mg/dL 2.3-4.7 L 604) Platform Material Handler Manager ID - [id number] 19:37:00 Test Item Value Reference Range Interpretation Comments MAGNESIUM (BEAKER) (test code = 1.8 mg/dL 1.6-2.6 627) Platform Material Handler Manager ID - DBPOCT-GLUCOSE [id number] 18:39:00 Test Item Value Reference Range Interpretation Comments POC-GLUCOSE METER 115 mg/dL 70-110 H : Notified RN/MD: (YELITZA) (test code = TESTED AT [facility] 0710 2133) [facility] [place], [address]: Platform Material Handler Manager/Techni aaron ID = [id number] for Si Renetta cain CBC W/PLT COUNT & AUTO [id number] 18:15:00 Test Item Value Reference Range Interpretation [...] = 2801) Surgically obtained culture + gram [id number] 16:40:00 Test Item Value Reference Range Interpretation Comments Result (test code = 6463-4) No growth Gram Stain Result (test No organisms seen code = 1123) [facility] + GRAM [id number] 16:40:00 Test Item Value Reference Range Interpretation Comments CULTURE (BEAKER) (test code No growth = 1095) GRAM STAIN RESULT (BEAKER) 1+ WBCs (test code = 1123) GRAM STAIN RESULT (BEAKER) No organisms seen (test code = 55579) SURGICALLY OBTAINED CULTURE + GRAM [id number] 16:40:00 Test Item Value Reference Range Interpretation Comments CULTURE (BEAKER) (test code No growth = 1095) GRAM STAIN RESULT (BEAKER) 1+ WBCs (test code = 1123) GRAM STAIN RESULT (BEAKER) No organisms seen (test code = 73746) SURGICALLY OBTAINED CULTURE + GRAM [id number] 16:40:00 Test Item Value Reference Range Interpretation Comments CULTURE (BEAKER) (test code No growth = 1095) GRAM STAIN RESULT (BEAKER) 1+ WBCs (test code = 1123) GRAM STAIN RESULT (BEAKER) No organisms seen (test code = 70747) SURGICALLY OBTAINED CULTURE + GRAM [id number] 16:40:00 Test Item Value Reference Range Interpretation Comments CULTURE (BEAKER) (test code No growth = 1095) GRAM STAIN RESULT (BEAKER) 1+ WBCs (test code = 1123) GRAM STAIN RESULT (BEAKER) No organisms seen (test code = 37972) SURGICALLY OBTAINED CULTURE + GRAM [id number] 16:40:00 Test Item Value Reference Range Interpretation Comments CULTURE (BEAKER) (test code No growth = 1095) GRAM STAIN RESULT (BEAKER) 1+ WBCs (test code = 1123) GRAM STAIN RESULT (BEAKER) No organisms seen (test code = 11465) POCT-GLUCOSE [id number] 11:57:00 Test Item Value Reference Range Interpretation Comments POC-GLUCOSE METER 126 mg/dL 70-110 H : Notified RN/MD: (BEAKER) (test code = TESTED AT [facility] 6720 1538) D[facility]EL [facility], [address]: Platform Material Handler Manager/Techni aaron ID = [id number] for Renetta Guerrier RAD, CHEST, 1 VIEW, NON [id number] 10:13:00Reason for exam:->s/p R VATSShould this be [...] by technique with sternotomy wires. Signed: Jenny Rosadoeport Verified Date/Time: 04/18/2019 10:13:43 Reading Location: [facility] Radiology Reading Room POCT-GLUCOSE [id number] 06:07:00 Test Item Value Reference Range Interpretation Comments POC-GLUCOSE METER 136 mg/dL 70-110 H : TESTED A T [facility] 6720 (BEAKER) (test code = ILDA Calvert [facility], 1538) [address]: Platform Material Handler Manager/Techni aaron ID = [id number] for Ed wards, John BASIC METABOLIC [id number] 03:23:00 Test Item Value Reference Range Interpretation [...] S NOT APPLICABLE FOR DIALYSIS PATIEN TS. Platform Material Handler Manager ID - ELISSA [id number] 03:09:00 Test Item Value Reference Range Interpretation Comments PHOSPHORUS (BEAKER) (test code = 2.9 mg/dL 2.3-4.7 604) Platform Material Handler Manager ID - ELISSA [id number] 03:09:00 Test Item Value Reference Range Interpretation Comments MAGNESIUM (BEAKER) (test code = 2.0 mg/dL 1.6-2.6 627) Platform Material Handler Manager ID - ELISSA MBLOOD GAS, [id number] 02:53:00 Test Item Value Reference Range Interpretation [...] 40.0 % CBC W/PLT COUNT & AUTO [id number] 02:51:00 Test Item Value Reference Range Interpretation [...] PERCENT (BEAKER) (test code = 2801) POCT-GLUCOSE [id number] 00:31:00 Test Item Value Reference Range Interpretation Comments POC-GLUCOSE METER 121 mg/dL 70-110 H : TESTED [facility] 6720 (BEAKER) (test code = ILDA [place], 1538) [address]: Platform Material Handler Manager/Techni aaron ID = [id number] for ARHUNMWUNDE, OS AZE POCT-GLUCOSE [id number] 18:46:00 Test Item Value Reference Range Interpretation Comments POC-GLUCOSE METER 114 mg/dL 70-110 H : TESTED A T [facility] 6720 (BEAKER) (test code = IL[place], 1538) [address]: Platform Material Handler Manager/Techni aaron ID = [id number] for ALAN BONILLA BASIC METABOLIC [id number] 17:17:00 Test Item Value Reference Range Interpretation [...] S NOT APPLICABLE FOR DIALYSIS PATIEN TS. Platform Material Handler Manager ID - BSSpecimen slightly [id number] 17:14:00 Test Item Value Reference Range Interpretation Comments PHOSPHORUS (BEAKER) (test code = 4.2 mg/dL 2.3-4.7 604) Platform Material Handler Manager ID - [id number] 17:14:00 Test Item Value Reference Range Interpretation Comments MAGNESIUM (BEAKER) (test code = 2.1 mg/dL 1.6-2.6 627) Platform Material Handler Manager ID - BSCBC W/PLT COUNT & AUTO [id number] 16:29:00 Test Item Value Reference Range Interpretation [...] (BEAKER) (test code = 2801) BLOOD GAS, [id number] 16:23:00 Test Item Value Reference Range Interpretation [...] (test code = 1819) 40.0 % POCT-GLUCOSE [id number] 13:26:00 Test Item Value Reference Range Interpretation Comments POC-GLUCOSE METER 94 mg/dL 70-110 : TESTED A T [facility] 6720 (BEAKER) (test code = DOROTAJAVI Calvert [facility], 1538) [address]: Platform Material Handler Manager/Techni aaron ID = [id number] for SIBA I, ANNESSA Bronchial culture + gram [id number] 11:54:00 Test Item Value Reference Range Interpretation Comments Result (test code = 6463-4) No growth Gram Stain Result (test No organisms seen code = 1123) [facility] [id number] 11:54:00 Test Item Value Reference Range Interpretation Comments CULTURE (BEAKER) (test code No growth = 1095) GRAM STAIN RESULT (BEAKER) 1+ WBCs (test code = 1123) GRAM STAIN RESULT (BEAKER) No organisms seen (test code = 55067) Tissue Isct0200-42-11 11:43:00 Test Item Value Reference Range Interpretation Comments Case Report (test code Surgical Pathology = 104) Report Case: [id number] Authorizing Provider: Fernando Andrews MD Collected: 04/14/2019 4856 Ordering Location: [facility] Received: 04/15/2019 0919 PERIOPERATIVE SERVICES Pathologist: Gay Puentes MD Specimens: A) - Pleura, PARIETAL PLEURA B) - Lung, Right Lower Lobe, Right lower lobe C) - Lung, Right Middle Lobe, Right middle lobe D) - Lung, Right Upper Lobe, Right upper lobe DIAGNOSIS (test code = d8xneEDcMNJkf1nfDVLxrXC 3220) uZzEwMzNcZnRuYmpcdWMxIH ofbpSgUKfhc7AfZ2GzRkScO FxhbnNpXGRlZmxhbmcxMDMz LER1jkBpCAYqINnxOSHwZDm uJx4pmNMwrZwaZqDqJVVhc8 ferdHVdntcvFk5n8czEKZuV xO7pPGgXGkxL9sncgArnPOq GWHuQPv5lNqxBbGzZINmb22 hbiBcZmNoYXJzZXQwIEFyaW EdD132a5num1mdwhEcvSR1M XJmPME7IEkagwPdusC1XHnr tTQeKrV7OSbemeBpMQSrM8V eDU8wQVllmDBrNZKxY9xrYC PxFQptOPLsQWttvZJqMLQ2l Hbkz4M2rQEvsWUpfJumFvFn NkEoZBCKu9LwFAt1lFbgI3P kCAKiPbF5gAAtVNOdLMygDM MhBOGoetU2xG68WZoodlR4m BIcv2Qet74gy481pF5tkJLc LPA7GDApCFDwaZCsHBPuNJK 9XGGsxIMgN1p3ElJqqNHbH1 H1MeYimJZmR4J1ZpMjrXHlT 2A6DlNobYEmVDBgyLRiYm2w lEExeYNway0crz88EIQ7d4I rcUdlYQR7UUW4VkWzZq5pxD NvBKZhTG0tVsHsvNIrXWXrr m05iKfmHCfksnVzsV5oUkIz XM2ikDcou28kYDWbLD4nyE2 oiv1fjhErWAkfsFRnkGK2oc fsTNB4YHXoofVnm2Ich6hpK qRtxuSeJ7hbR0KnTXHcMJPl SSHqTkDjetKir7Hsf6MlmVE doAg2a1jeXSVrYRUsaSymv7 ztQMF6FWCxT7Y5kFXib2dmG FzpPOGnqFW8dbkvMGkdFJFt qeK5uekwIDbaFGOffWL4uaq mVMrhTTDoNbO1osvtHMzbSG EvDYP9NUneo888SVI7CGkcD mtwYWdlXHBnbmNvbnRccGdu ZGVjXHBsYWluXHBsYWluXGY kWHArDaPtjHiyvDbkqH8kCn TbRrQdUUvsZI0nLFLmM9cjs HZvDJXrNBBvI5jjJqTckX5b aFxmMVxmczIwXHBhciBBLiB GGEITApFnKIMZB1nVQWCJZI JJRVRBTCBQTEVVUkEsIERFQ 84JICnYZVZMS158ZLQyxvJg ICAgLSBDSFJPTklDIEZJQlJ IN8mXShFYBQPBNsdKBFHkEP BhciAgICAgLSBORUdBVElWR WWGU2OiKTLIHPvPSL8JCVub YXJccGFyIEIuIExVTkcsIFJ IP5zOXRnEJ8JVFWeTGwVbBB SAN33QOZeZNGCPY604XNTbf iAgICAgLSBDSFJPTklDIEZJ KrRZJ0qHFhFUAIEEYmwCVJM wB2lBNQUFN8GSKBRNF9IAPH KHAkNBZZ0BCDFBI35dFMMdu vLeJJFpCUKYQP1THJMIEnWM A0uFNCGyR0eNVWQHXCHWVUL MJgPPDeSUKfuEYrmjFJ2XAS ZANCRTI86ZNN5voHViNSSlF ZAfCZ0TA3FIOVSWRADZYlNM IYbCV51IOjOGZJXeoouwRZO cBo4eAGTTCdraKnkGUYZuBR pZWTzQRHuSXuYvXTIZH98RD QjXKVJIP355WKEtydOzKPLw HYZJFCYGIrtMSRNSWdYJV9s ORyBQTEVVUklUSVMuXHBhci AgICAgLSBORUdBVElWRSBGT 9JsPRJONQhPDW3UXZ9peAUu XHBhclxwYXJkXHBsYWluXGY dNOSwCmTmmHavjA0wKwTeUk EgLXqeZC9iUMKuC1dssWKzG DBrXCMhT9ubAoNoqZ7lsHbu MVxmczIwIEQuIExVTkcsIFJ SE5qILLXEIFQHZYhWIwOvKZ KGL21SEUtHJUXQD280JFWlg lxxbFxwbGFpblxmMFxmczI0 XHBsYWluXGYxXGZzMjBcbGF uZzEwMzNcaGljaFxmMVxkYm OrKUFeTNvlM8czDaNqDsMvX CAgICAgLSBDSFJPTklDIEZJ HyWEM1jTApBGOGKUGewGVFJ uXHBhciAgICAgLSBORUdBVE qMNMSKV0KwKHPWLEnKNX7JI T0cnICrHIYhOWCvKJyVVtjo QJGPRA7GNTrHYGIFMKNURVy wbGFpblxmMlxmczIwXGxhbm nwGGHvGUvwZ8znNtQxHJHiw UdrHkcga9EyHAHmFNMxPuao zaLrZSn1qqQuWZ8PTSNNI40 ZHexGKM5MSSEZMSuGT4RBEL MgQUxURVJBVElPTlxwbGFpb lxmMVxmczIwXGxhbmcxMDMz SHakA8orNaJbSLCycFegJNk ou2JfIAFmOABrTsujjrBqVQ 9npWuhsK3uImGcDnWyHGajV Z7jYHAsL9meaFIhRNYzBYNj O1huUxHfjK5fcVwzBTcwtjM sPBFoadiqQCY0p7ofnREkNJ NzdGUxODAwMFxhbnNpXGRlZ opovjydMAGzIJR6sgMdAUTs BZuuGBQoHBvfBx2mrVNaaZv dVwXtSVKho4bameCEkvtucH o8i6etIXMmFwE0aKCmCIksW 2fezqUtxNDcUFXfBZl9oR19 UBYoyM1lzTWoMIgronNfGbO 3VYoqQKTyYyL2GCSxaOAtDD JyN6tlXDNjIRdsCHLxHRgkq LCtRTV0rIvcu6E1iMVqsSRs hRomFhLkAtYrQtITy0IsSVv 5cVidR3FyQHFaGlH8tXNuXA TvOLybQOXkOCIibhT1mH92K LniepG4cFVqy2Zdt49kd983 cO5quRUcCWJ5DYWeDYNdsGN uXNQfPWT9DXSteSBpF9sxIF JqPE0ykpusQTlgMMckPRHmi CY2SVOohPBeN6OzWELmILac YVQmyij6EpJcVa6vlXEqzQi lFXlbs8ztb1kdnMZgFmr3CA NhWmHnMzpiTRvor1Hpm8yyY RVunh8sEZY3mVGmbEeid7J8 kZJrEOLysHUmBMLaIO5ytXW jBFNswY9aaqxkSHKnKzIaxp alDYMitMdfnlVlEk1heEwoK QM3AOqnT6zdtC8xTxZ4EUiy A0tsfL4zVTg2WGnrWGTstUP 8uwK9EUUkhGQiT4FugS7vEW QlSM6uidl3b9ynNVA7KUerN NPrHpQ0zuN5LTFzqVNiHFUl zIzwJFzri366EHX5ViCvEVH kq6XgJ7ByvDwkV65gfJubL7 0yURUnpRlkyE4xdVqprH6uM aZwMtBaQWuvoTbvIU3cDKHi X7qwiNEsSXOoUQYmZ9xxQqZ veW7shCjyWOnozoMsHMRpMy e3EWSrtRJbVCXdTbu0UQEuP UZlV70yeyngGAL5hA1hy2di c7BjZMaeTYO2ESSst58gSSe sxrC3QSpkJa46FDwcQRD5WL vsTWY7tB== CPT Code(s) (test code r6ktuCTdTBHalCIgAkTeZMP = 3357) eLBSsl7qaKCGadVOhIgDjXb NcZnRuYmpcdWMxXGRlZmYwe 2pnn916mSZwr3csBHDbDjD2 jLZhEWYuhAIqJ949b7rli5b gluLljKV0BYQqLNK4UKxrcl XvvqH3NIbkfMItRvS0IIjvv nWxIXlgtqLyczQkQdy3XYLt Y166LCF9lPwcs2rzLRY0FUN eVXFgGvDrCp0jzDDyT539CM InGAAGZOBhvCi4AYRegfEbz aEgrTWDi084M025w0ywWTNo tnVrjJnEtkazr7wnI449TPI hcGVydzEyMjQwXHBhcGVyaD B3XTHhCJ2wzbrtPeSrES2js xpyPzZbNK0arcz9YkGnXR4u cmdiNzIwXGhlYWRlcnkwXGZ ty1GhjzxuKN3zU6Iou0O5lL 9maXRcZGVmdGFiNzIwXGZvc q7fvYIjMTgga7MhIUI4vhN1 aFJweJSbRASeEY74Dnlaa5E nIdrwBTX0EUQzxzTpf4Bfw6 jtFkRcwlFmJ3xjW4BiSOKwU ZKpBGWaMyLuttGtt9Gkf4Fs bDYqeVd0x9ucLYOxZSCccYg gn1avYEY8JMHrV5M4vVGnp8 bfMJysMATioLU2zoztJBbaJ FFxupE0fummVBkbUWUqgIJ5 ewsfVYeqPYVcFyO8irzkEFu bWODaBNR3IPwbc355XIC5BO xzYmtwYWdlXHBnbmNvbnRcc GduZGVjXHBsYWluXHBsYWlu XGYwXGZzMjRccWxccGxhaW5 hJlUwRaVfUVpiEU3rENGnC8 ivsQClGMTaHZFfR5tiYsKna U7zrXhvSXwdffFuDJq3OxB8 IFggNFxwYXJ9 CLINICAL HISTORY (test l1twuTYoLVJxiGHcPyYnHLE code = 3358) uCQAsv1vsHEJqdJApZaPrFx NcZnRuYmpcdWMxXGRlZmYwe 5psg543fGVxu9ugRIThBzK8 nFOnRRFazIAgO181k8aev0h utvLbrYS0JYAuXWR6CWfmnr QpzjQ3CVzhzYYfFhU1BMwwy vNvTXxlrxTnjzSwAwy3GXTu W671QKB2qUfkx5ffYHR4KNP sQDLaOqRtVm2mvVOzL861LH MpKJFCVBVfoWt4BTSeglIjn yDfkZDYn269D035n6jdIXTm usWwgLhXxwamc4wyF395LZD hcGVydzEyMjQwXHBhcGVyaD F3EREnCZ6hxhkbNcOiYP1ue pozLaOtYD9evdq6QlNhVI2y cmdiNzIwXGhlYWRlcnkwXGZ az0NgxovqII7fO6Ayx0N4wS 9maXRcZGVmdGFiNzIwXGZvc s4phCZtAGvhg4KePNC7arS0 jXEfmBMnJGVuLQ18Plxmj3R pRddbCWZ6WQRrewPkt9Yxl8 neExVobaEkB9voE8VnRZKqS YZxCRVbWqUjuvDsp2Sri8Jb lFCdtFw4w9qeRODcSUOebGj gn0poWYS8XYNxL2Z7kOGyu9 diMUosDRFwwPA4obftOWzqP ZVwebJ9lxysXIlsIGGgiXU6 yiqtVCehCTOzYrS9qujyCLe aAKGnINP5KIubq055BIF6KD xzYmtwYWdlXHBnbmNvbnRcc GduZGVjXHBsYWluXHBsYWlu XGYwXGZzMjRccWxccGxhaW5 cQrRcFtLnYNqxXJ5cIFYeH1 txdQHqSRYiGBPsG4wrNpXkq T5zkYekTLluriOdKZMdgRun oDUlQTKqZ1e6EftqLKP8 SPECIMEN SOURCE (test c4lhtYQiTAZwvKShVgYrPTD code = 3377) uWHCkg5gtEDMncFUzFxMiKg NcZnRuYmpcdWMxXGRlZmYwe 2orr162tLYbl7anSNYbDdO5 qQBfCQMvrKRiN077y0nkv5g vtdQuyWB4OQAqFPU8NCpycq KkjiT1ZAoxcUNnPeF0NOtsp lOnIBvvpeDkloJiIqq8XZTw T353XND9bTkwk3uaNQR5BFX zAJZuOgPiWo9liPCeQ640JR XaFSWIFLZkhUv4PAJqmcAdo wHksBIZf209C283e4mgUWRr xcGyxJlGfykll8khE129VBT hcGVydzEyMjQwXHBhcGVyaD K5EGZqAS5aikaxSjCwCC0ia hblAlYzIM4vnxp1WxPgCW0m cmdiNzIwXGhlYWRlcnkwXGZ rd2QlzjsfNC2eN6Few0M1eB 9maXRcZGVmdGFiNzIwXGZvc k4xkJBeEKeoh1GkHQT3auN1 wTDqxFRoLWTqVR95Veulq6E zHldhBBM4LLOiffZrj5Rmy2 sdLnPpagYnL6snV7GuGKSdR IPvYLVpYeDwxvQvp5Zwj7Nc cNAhkCl7p9biFWLnJDSosCx fg8kqKJN8DJCuM9W0wCFvn9 nhTGffFZAvoQE5hdgiASobB YKfcmN2drxxQGvdRJVptWW3 uklhGDedPROgCgO0pysbXSe nHHXqYRE5WAtkj508THP8SM xzYmtwYWdlXHBnbmNvbnRcc GduZGVjXHBsYWluXHBsYWlu XGYwXGZzMjRccWxccGxhaW5 rZySmNnFmYMdgPB1xUSFyE2 jlnLAnSHHvOOVhH7geZwEel V9hyFsgSYlbfhPkEUFsOQWg GYKbDK5zSe5cYVOyCbzxwzs jkQAmtU57TGTbkQ7oXN8sPm 4gTHVuZywgcmlnaHQgbWlkZ WqhTFkzQqHzBGXkNDv9gpyc YOTvP1r9BVAyyNJrPAwnRzL gXHBhcn0= GROSS DESCRIPTION p4nxlYDbWGGbgWUiOoBvARO (test code = 3366) eTQGqb4wmRPXcmKWeYfHvPo NcZnRuYmpcdWMxXGRlZmYwe 6ndd653xPReu9rkOZOqHbH5 yCZkKZTaoQIeX473WTAtSVo lm3ana6SuSJRyzGAdy8G2CI WPiqasvHf8pIvuF67qs8N4P uilR6uyFULqLQUxT5QeJK5n MNHeVdn1FKK9NXW4SMAiBYK zA3AcHC2dXHFrkBPbVNg2g7 kxfCydQBWkIJI1v2cwUQxxl gDlMS8wjq4mvKq1k4ctbcHz EKWuKVFrbXYEYUQcE5OjbGb eBp4wlWm2zSgiDfhwGPY7Ne f9RH1ols83hye6jNtvNAPrx nabHfF2NImaADNkvdjtUWs2 MFxtYXJnbDcyMFxtYXJncjc yMFxtYXJndDcyMFxtYXJnYj vcZNcxVTQhLEB9TOmqk368J WI1HZdqg9rzn8ekzEYsTcu6 BHLoFgOgDyfkVWqbf1Vxr3x vNEHvcw3tVRC1vMGfoWbhe9 K0lILkJZLepLHrobIlTSTrQ gL3WGmbMQ2rwr54SSFtRBH6 fh4opGQyeLuwvgSwpKNzZIp fN2GoVBSvx317EJHvN3CaKI Usb3F8ckYiWnDqFZFioQF2j fS2EOLxVLz6zMTeoqA1nfYv nUIkJ9alnZ18JqWqhVUeL6M ufX72VsWzuZIwV1QdfA67Ub WikBBuQ5ZgxO86LjKsaCMnS QThhHAmSk7ybCMapIUwq7St nSIeZEfpE38wm130XKWzkrE mX2shmVFkledqxWRdliadFQ plkjH0HJx1tlQhadsvwVdic GFpblxmMVxmczIwXGxhbmcx MYQxNIhlJ1rrCgQkPUHcfSt eEZjxg5WpAHWhWQWkSnSbTZ 8uNmXbCZm3JUCkzD2cGo6uk YPkoW1bbZFmZYsnENU1gEWp GGFnKSZxCFOhXJ16Z1KdkyR aHIrqRWGkBOGoiD1vQO48hI JlciBhbmQgInBhcmlldGFsI HBsZXVyYSIgaXMgYSAxLjUg cGHtLxdpqPTqUwIiW42qvX8 cdHjpapLdFdB6AS9opXxfpm YkoCNvj64vgOMqNO5lwIBqm Fcpi5GeCNU1bMdotVGsvwHj hzBlktOrmVXmtRNjnZB2DEO fkW5kCVAzPBGhzhnaESYvUm 5yAmEvFQo5FSMdqN2gIe7bu VJluV7vfLUjDAgmEZL8tKAa ESJkDVYnYUKzMO82I5KfcwQ wKUqzUOXqLGJbxB1oFR61xC WjxcFnbjDdJxVwZ7x6JKwrw 6BnZEdsKgMdPIyfRXGbUI1k ERrjRv0tZEnzVE3oGAYtZMP waeThp81ys1IpjOKhRYRopl zdSXXgM2XxnKfrxRUav1Unk GFnaWMsIGZpYnJvbWVtYnJh iq26ywT0gYCeiMZvRHpyhXI yDLduAXJrvOiyAFi3AFS2Va 6whZNdRTNnwxJDMW0CGl0hY HBhclxwYXJccGFyZFxwbGFp jubzXSonggM3RKIeZIbcJTP xXGZzMjBcbGFuZzEwMzNcaG ljaFxmMVxkYmNoXGYxXGxvY 2hcZjFcZnMyMCBDLiBSZWNl cNVsBXDjblDmw1XqRDwiirZ sYWJlbGVkIHdpdGggdGhlIH CcaReyebQvarRyRE5rQAZkI 2Wcy9Pde27racXsHuIxLPLb ZCAibHVuZywgcmlnaHQgbWl kZGxlIGxvYmUiIGlzIGEgMy 62XAlgAC78DOmuYS2cWXFkT ORkewJbz21yj2VmbNVjQHVi vuskXlzbfu5qDS4tfjRzt9C jROKva6C1OGjlk0njW3vfkN OhLO54cDWkqEcrp1RmiNi6x GVkIGluIEMxLiBccGFyXHBh ciBELiBSZWNlaXZlZCBpbiB hj8LqIJkkfpBaWNMydWRtMW dpdGggdGhlIHBhdGllbnQnc tFtKW5jNDKbU1Taa1Aiw28c bnVtYmVyIGFuZCAicmlnaHQ irDUsCJDjwK4aMAXejFCySA AyLjMgeCAwLjcgeCAwLjIgY 03dxGJmIHDsdsdcCipsuj1u BX2mbyHhe7EkTZFgf2P9GCa sb5qpZ2befUXuOU47tQDhhC tfy1CfxKf3fBOmYAxbTSBhR qUIXM3utwTfjQCesJ== MICROSCOPIC q1msyPJiKRZszXIpVmQrLMI DESCRIPTION (test code kTAYuw9laXTWrmIQjKzCdCy = 3371) NcZnRuYmpcdWMxXGRlZmYwe 4wil251xPQdq1yhNIPnXaD8 tYYsJRSfvAYvA043c6guv0c ofkEbuGS5FJUeFJI8ATkxwe SokwH3XSvwvSVfVoA8ULuqa nUbYIbtmdIvidPsRfq6NUTw B727FXN7tWziq0ptBHT2TGA jTTZePqQuQi9xfHTdW326LP MaDHDFUDTjmNn2OYMwbhGvb iJlqBRKi716P768r9nhLAWz xqNfgJrBpbwyg4ssF109XRW hcGVydzEyMjQwXHBhcGVyaD O2RIFuXN8oldbyBbIeKX4bf chyHoAaPM0xmew4BcHpPM7f cmdiNzIwXGhlYWRlcnkwXGZ uo8ErhtlaTO2mO9Wcb2B2dW 9maXRcZGVmdGFiNzIwXGZvc q2xvAVpFZtne2AxZZS8bnO8 nBDftJRvKXBnRN71Igepo8G dIutlLUW4MQSxhfTjx0Umb0 ynRxUkzjSlG4dxJ1QjYPVmB ELzTLYyPlTdkjClr2Pqt4Is oZLzdVs8v9eyQCLlBNSqvTt ra1jpACC0OGJrO0L5sXVgb1 cuENxlSGAzkKI8phluISqwP CPyulO0sogvIVzvMJBzkZZ8 dxzgLAmvTJZjChZ5gjdoREv mYXKwMGM1MEzrq269WUI5RS xzYmtwYWdlXHBnbmNvbnRcc GduZGVjXHBsYWluXHBsYWlu XGYwXGZzMjRccWxccGxhaW5 pJlMkLoXrURazAM2xXGWkT9 cvlYYqQGEgOTKnZ1khZfPwv V6tzXwlEHnppzRaSVBzjqNa ii2mQS6vkMGmpK== Gross assessment was [facility] [place]'s performed at ([facility], code = 2777) Department of Pathology, [address] [place] [address], Technical component [facility]'s was performed at ([facility], code = 2778) Department of Pathology, [address] [place] [address], Professional component [facility]'s was performed at ([facility], code = 2779) Department of Pathology, [address] [place] [address], [facility] [id number] 11:43:00Surgical Pathology Report Case: [id number] Authorizing Provider: Fernando Andrews MD Collected: 04/14/2019 1653 Ordering Location: [facility] Received: 04/15/2019 0961 PERIOPERATIVE SERVICES Pathologist: Gay Puentes MD Specimens: [...] DIAGNOSTIC ALTERATION. Signing Pathologist Direct Phone Line: [phone] X 4Empyema, right.A. Pleura. B. Lung, right [...] tissue, which is entirely submitted in D1. PA/ewPerformed.[facility], Department of Pathology, [address] [place] [address], [place] [address], [facility], [facility] of [facility]ology, [address] [place] [address], [facility], Department of Pathology, [address] [place] [address], WFO, CHEST, 1 VIEW, NON [id number] 10:13:00Reason for exam:->s/p R VATSShould this be [...] [place] Verified Date/Time: 04/17/2019 10:13:50 Reading Location: [facility] Radiology Reading Room POCT- GLUCOSE [id number] 05:44:00 Test Item Value Reference Range Interpretation Comments POC-GLUCOSE METER 99 mg/dL 70-110 : TESTED A T [facility] 6720 (BEAKER) (test code = ILDA Calvert [facility], 1538) [id number]: Platform Material Handler Manager/Techni aaron ID = [id number] for ARHU NMWUNDE, OSAZE BASIC METABOLIC [id number] 04:57:00 Test Item Value Reference Range Interpretation [...] S NOT APPLICABLE FOR DIALYSIS PATIEN TS. Platform Material Handler Manager ID - [id number] 04:36:00 Test Item Value Reference Range Interpretation Comments PHOSPHORUS (BEAKER) (test code = 3.8 mg/dL 2.3-4.7 604) Platform Material Handler Manager ID - [id number] 04:36:00 Test Item Value Reference Range Interpretation Comments MAGNESIUM (BEAKER) (test code = 2.3 mg/dL 1.6-2.6 627) Platform Material Handler Manager ID - [id number] 04:08:00 Test Item Value Reference Range Interpretation Comments PTT (test code = 00293-0) 41.6 22.5- 36.0 seconds H Lab Interpretation (test code = Abnormal 94395-5) [facility]00 Test Item Value Reference Range Interpretation Comments PARTIAL THROMBOPLASTIN TIME 41.6 seconds 22.5-36.0 H (BEAKER) (test code = 760) PROTHROMBIN TIME/[id number] 04:07:00 Test Item Value Reference Range Interpretation [...] for patients wiht mechanical heart valves.BLOOD GAS, [id number] 04:02:00 Test Item Value Reference Range Interpretation [...] 40.0 % CBC W/PLT COUNT & AUTO [id number] 03:56:00 Test Item Value Reference Range Interpretation [...] (BEAKER) (test code = 2801) Hemoglobin and ykytcqvwer3757-74-05 00:46:00 Test Item Value Reference Range Interpretation Comments Hemoglobin (test code = 7.7 13.7- 17.5 GM/DL L 786-4) Hematocrit (test code = 23.6 % 40.1-51 L 4544-3) DORI (test code = DORI) Platform Material Handler Manager ID - [id number] Lab Interpretation (test Abnormal code = 27269-1) [facility] AND [id number] 00:46:00 Test Item Value Reference Range Interpretation Comments HEMOGLOBIN (BEAKER) (test code = 7.7 GM/DL 13.7-17.5 L 410) HEMATOCRIT (BEAKER) (test code = 23.6 % 40.1-51.0 L 411) Platform Material Handler Manager ID - [id number]-GLUCOSE [id number] 00:22:00 Test Item Value Reference Range Interpretation Comments POC-GLUCOSE METER 98 mg/dL 70-110 : TESTED A T [facility] 6720 (BEAKER) (test code = ILDA [place], 1538) [address]: Platform Material Handler Manager/Techni aaron ID = [id number] for SAGA Y SANDRA Prepare [id number] 23:54:00 Test Item Value Reference Range Interpretation Comments Unit ABO (test code = A Pos 3524020) UNIT NUMBER (test code = [id number] 934-0) Status (test code = 2180866) [facility] Product (test code CRYOPRECIPITATE = 2263) PRODUCT CODE (test code = P1727T37 933-2) [facility] [id number] 23:54:00 Test Item Value Reference Range Interpretation Comments Unit ABO (test code = 3045198) A Pos UNIT NUMBER (test code = [id number] 934-0) Status (test code = 1917285) [facility] Product (test code FFP = 2263) PRODUCT CODE (test code = B6682N83 933-2) [facility] [id number] 19:03:00 Test Item Value Reference Range Interpretation Comments POC-GLUCOSE METER 93 mg/dL 70-110 : TESTED A T [facility] 6720 (BEAKER) (test code = ILDA [place], 1538) [address]: Platform Material Handler Manager/Techni aaron ID = [id number] for DRU MONTE BASIC METABOLIC [id number] 17:08:00 Test Item Value Reference Range Interpretation [...] S NOT APPLICABLE FOR DIALYSIS PATIEN TS. Platform Material Handler Manager ID - RKYDDUMMLUBO7296-82-68 17:06:00 Test Item Value Reference Range Interpretation Comments PHOSPHORUS (BEAKER) 4.5 mg/dL 2.3-4.7 Specimen slightly (test code = 604) hemolyzed Platform Material Handler Manager ID - BSCBC W/PLT COUNT & AUTO [id number] 16:39:00 Test Item Value Reference Range Interpretation [...] (BEAKER) (test code = 2801) BLOOD GAS, [id number] 16:16:00 Test Item Value Reference Range Interpretation [...] (test code = 1819) 40.0 % POCT-GLUCOSE [id number] 13:36:00 Test Item Value Reference Range Interpretation Comments POC-GLUCOSE METER 93 mg/dL 70-110 : TESTED A T [facility] 6720 (BEAKER) (test code = ILDA Calvert [facility], 1538) 47[address]: Platform Material Handler Manager/Techni aaron ID = [id number] for MYLES FITZPATRICK Venous doppler arm, [id number] 10:57:26Ejection FractionSLE ECHO HEARTLAB MKCKESSON CPACS Left Impression1. There [...] of Study 04/15/2019 Age 63 Visit Number [id number] Gender Male Accession Number [id number] Date of 1955 Referring Yonathan Najera Room Number 7A05 Physician Nawaf, BASE WAD OPERATOR ADJUSTER Bar Examiner Aidee Ruggiero, T Interpreting Asia Tapia Physician ProcedureType of Study: Veins: Upper Extremities [...] in cm/s ; Diameters are measured in [facility] HEMOGLOBIN AND [id number] 09:42:00 Test Item Value Reference Range Interpretation Comments HEMOGLOBIN (BEAKER) (test code = 8.0 GM/DL 13.7-17.5 L 410) HEMATOCRIT (BEAKER) (test code = 24.1 % 40.1-51.0 L 411) Platform Material Handler Manager ID - [id number], CHEST, 1 VIEW, NON [id number] 06:37:00Reason for exam:->s/p R VATSShould this be [...] S NOT APPLICABLE FOR DIALYSIS PATIEN TS. Platform Material Handler Manager ID - DBSpecimen slightly sdyccbgUQOHBKVLFX5375-72-62 04:26:00 Test Item Value Reference Range Interpretation Comments PHOSPHORUS (BEAKER) (test code = 5.1 mg/dL 2.3-4.7 H 604) Platform Material Handler Manager ID - KZAWPZKYZYZ9833-20-47 04:26:00 Test Item Value Reference Range Interpretation Comments MAGNESIUM (BEAKER) (test code = 2.2 mg/dL 1.6-2.6 627) Platform Material Handler Manager ID - ECFKBK5256-07-52 04:09:00 Test Item Value Reference Range Interpretation Comments PARTIAL THROMBOPLASTIN TIME 35.4 seconds 22.5-36.0 (BEAKER) (test code = 760) PROTHROMBIN TIME/[id number] 04:08:00 Test Item Value Reference Range Interpretation [...] mechanical heart valves.CBC W/PLT COUNT & AUTO [id number] 03:57:00 Test Item Value Reference Range Interpretation [...] PERCENT (BEAKER) (test code = 2801) Calcium, [id number] 03:44:00 Test Item Value Reference Range Interpretation Comments Calcium, Ion (test code = 1993-) 1.09 mmol/L 1.12-1.27 L pH, Blood (test code = 52518-7) 7.44 Lab Interpretation (test code = Abnormal 94335-7) [facility] HospitalCALCI[facility], [id number] 03:44:00 Test Item Value Reference Range Interpretation Comments CALCIUM IONIZED (BEAKER) (test 1.09 mmol/L 1.12-1.27 L code = 698) PH, BLOOD (BEAKER) (test code = 7.44 1810) BLOOD GAS, [id number] 03:44:00 Test Item Value Reference Range Interpretation [...] (test code = 1819) 40.0 % POCT-GLUCOSE [id number] 23:26:00 Test Item Value Reference Range Interpretation Comments POC-GLUCOSE METER 117 mg/dL 70-110 H : TESTED A T [facility] 6720 (BEAKER) (test code = ILDA [place], 1538) [address]: Platform Material Handler Manager/Techni aaron ID = [id number] for DC , NEEL CBC W/PLT COUNT & AUTO [id number] 23:13:00 Test Item Value Reference Range Interpretation [...] PERCENT (BEAKER) (test code = 2801) Central [id number] 17:48:17Enoch Chung NP 04/15/2019 5:50 PMCentral LineDate/Time: [...] called to verify the correct patient, procedure, equipment,pc support specialist and site/side marked as required.Indications: [...] NoneType of anesthesia: NoneGrafts or Implants: NoneCHI Daniel Freeman Memorial HospitalBASI METABOLIC [id number] 16:33:00 Test Item Value Reference Range Interpretation [...] S NOT APPLICABLE FOR DIALYSIS PATIEN TS. Platform Material Handler Manager ID - JOSE [id number] 16:29:00 Test Item Value Reference Range Interpretation Comments PHOSPHORUS (BEAKER) (test code = 5.0 mg/dL 2.3-4.7 H 604) Platform Material Handler Manager ID - JOSE EBLOOD GAS, [id number] 16:18:00 Test Item Value Reference Range Interpretation [...] 45.0 % CBC W/PLT COUNT & AUTO [id number] 16:17:00 Test Item Value Reference Range Interpretation [...] = 2801) RAD, CHEST, 1 VIEW, NON [id number] 14:28:00Reason for exam:- >hemothoraxShould this be performed [...] Cruz Verified Date/Time: 04/15/2019 14:28:00 Reading Location: [facility] Radiology Reading Room SPIN/CONCENTRATION CHARGE 2019-04-15 14:00:00 Test Item Value Reference Range Interpretation Comments Concentration charged (test code = Done 2657) [facility] [id number] 14:00:00 Test Item Value Reference Range Interpretation Comments CONCENTRATION CHARGED (BEAKER) (test Done code = 2657) Thromboelastograph (TEG)2019-04-15 13:00:00 Test Item Value Reference Range Interpretation Comments TEG Activated Clotting Time (test 5.0 4.0- 7.0 minutes code = 04770-8) TEG Fibrinogen Activity (test 75.9 61.0- 73.0 degrees H code = 11010-6) TEG Platelet Aggregation (test 69.6 55.0- 65.0 MM H code = 73458-3) TEG Fibrinolysis (test code = 0.1 % 0-5 96433-7) TEG-H Activated Clotting Time 5.1 4.0- 7.0 minutes (test code = 1411) TEG-H Fibrinogen Activity (test 76.0 61.0- 73.0 degrees H code = 1412) TEG-H Platelet Aggregation (test 65.7 55.0- 65.0 MM H code = 1413) TEG-H Fibrinolysis (test code = 4.1 % 0-5 1414) Lab Interpretation (test code = Abnormal 34229-1) [facility] HospitalTHROMBOELASTOGRAPH (TEG)2019-04-15 13:00:00 Test Item Value Reference [...] (test 4.1 % 0.0-5.0 code = 1414) [id number] 11:47:00 Test Item Value Reference Range Interpretation Comments Case Report (test code Medical Cytology Report = 104) Case: [id number] Authorizing Provider: Fernando Andrews MD Collected: 04/14/2019 1548 Ordering Location: [facility] Received: 04/15/2019 0913 PERIOPERATIVE SERVICES Pathologist: Sean Piedra MD Specimen: Pleural, Right, Multi loculated pleural effusions DIAGNOSIS (test code = h0ivmHCkKRNgc9ocKRVlwPJ 3220) uZzEwMzNcZnRuYmpcdWMxIH sacyZvLDken7SbH3VhPtOcK FxhbnNpXGRlZmxhbmcxMDMz BLP7qyUgPRRdVJxkYLItCGl zNp8cuSPbiMskGgOoHSVex9 cenuWSflljfOe4x7isFSJwO xD6yFJqKKobB8cxtrUxfWRx AYSnWRs2gJ98LDUdsJ1ksBC tROopotBtKmU5EClnUGXjGe V1UYFrnNQsYNWnI9qpHXWgI RgsAZPhSZsdiMXqNYJ1xMsj h5D8mKKszIGciXdxQbEbXfY kDLELz8FrRXa5kNypH3JeHX TaItI7fUHyNFUqQCuaQKVvJ MGcwxU8bO89TEyfjsC9cBMm w9Rdu10qx544yX8mkIKoYAJ 9MCCeEFZydMUwFQCtZYL7VD FizVTzV0b2PjOglJBjX0M2U dFnnEKcD5A8KkCqjTNyE9U9 LxYyhPKmKXTceNXeDd2fhVW diKVozu4wms51WME3a2FvmV uySSX0FDG1CaCgZl0jyGOjX ZVfKN4fMhNaaOYjNOBwzh42 sLtjCTjeqkBkgX9bVfEfFAF fsXSvCKBxCH2plIRcGOZmjI 5ucmxjXHBnYnJkcmhlYWRcc WepqlEeHo2mnZeuNPZ4PGzt R9szuM8rLoN1DUbcC2eutI4 aBCt5WIsovOE5GEUwyC1mLC 6xfwmwz7xfLwKgQR6wwdege 2vqGvMpKY7ghpr6l1oaRqAc VB3tcisag4prFwJbXZmdSYA dcqzeTNRfk5TfzvxzTFMlr4 LmM4TvqQmjM92dwGokX69cN ROurFshnD8cmIuhrJ3rIxAb ZnMyNFxxbFxwbGFpblxmMVx mczIwXGxhbmcxMDMzXGhpY2 vlUlUaNWHhxLclLGdxm8ZkU GYxXGZzMjAgUklHSFQgUExF SBBHMQSAJYTIVBZiS5fQS1V ERH0BAMoeeIveTBWrOQZaDP 2RF7FFYMOFAQONMpSGWSlDM 05BTkNZXHBhciAgICAgIFBS YFZWCHuDSS2TPMyqOqjPY3S ohHHnaKuxuzAbTLjsh5IaWI bpBNRbJD4zeJcnTSIsEU6gB VOxG0odtF8qffg6LbJrAJJq ZmV8FRVapqF1Rtz4GLHtGVr ll5yaj6CvPQClQKk7fNmrNc GlXOLgg7nrbzCuJhKaVLYnV SNnKIYxiGEdH893v6acu9pw rnLzwXO6LXUmBVN1XAcwbpF khfT3ODgreQKyDlO6HJqqnl TlWAtjfrZfbbEwSnt4FJSlS 380AFO5lYkno7poIYT8BSZh XDEuUrXeDu4fdYUfV591JRO nEGBRTCPjlOm6POIjlnXnaf PdlSEAu100G103h1veMWYpi zTufVsBpgpfk5wxF292EVDh cGVydzEyMjQwXHBhcGVyaDE 0JAEcFX0kwqvzPFjzVPtvQU QbldJ6RQXekTPxF8JqPJPjU H8dlhhbVBW8VQwlRTQnVDL8 EhDaYEIfy5Nslxc1CsDhvc8 naj96WXH0r6ZviVkxOFY9RF P0VwFbPu5wlTUcWJHjRE5oN vQelOWaBABaof05xIbcYJzp EKV1QZDurcJpm1Tdq2pjQuT ktkFoN5vwP4HeHHDkDBSjIH QgPnYpnnBpd9Ldb8TcxFPlw Fr4c5muZYHoEQOieYyhr8ya OTA7FHZkvBPaC2zopC5qCRC kJZ8snanyc0rpVGtaHPcmQU BmqFQ2pyG7FUWvhJQxM9Ebp J8qZDPuBNghOINlicg1BfOb Ku7goPUgyYnfLOrcHoluNJm lXHBnbmNvbnRccGduZGVjXH BsYWluXHBsYWluXGYwXGZzM jRccWxcbGFuZzEwMzNcaGlj tTjoSLhdTjSnFKJaYSfeV9v dPbNjOxSuVgc4NTVgaIZlFF ZdKmy0DTXqiFXxASBKuIjnr O7xUIWyjZovmV8eyMP6HRHp guIyhBKMqI8uQMDYvP8xOsO 6BcJlBcJ4XJVtXXhJYOGbiv 19 CPT Code(s) (test code q3baiAEoSIVfgJIoOmZiNZL = 3794) eXYVtt9ilXGQgcGKvMdSlOo NcZnRuYmpcdWMxXGRlZmYwe 3nfm855lCImk1zvOVOaDeP7 kKFhLMFixMJjP104k5mpr7b snqJuzNL8ZQQjINK7HKqnin CiauQ2EIibwWJgRfM7QXssr lHzLHmgyvRwxrUsSku2COYv Q911FCT8rVaxh7ysFZY9TDE kUMObQlFyRc7caOPyY813NJ VxREJQGYMzsEs7KZFrghKay tOaaQCVs294U454e3qwPVCt diZmhBpAxrrkk7kkM777NMV hcGVydzEyMjQwXHBhcGVyaD C3GPFcNO5wdwouEsMpJU0mb pdlZsOmJI6qinq8NgPtNS3a cmdiNzIwXGhlYWRlcnkwXGZ te4NrxrkzXQ2qY5Jwu1U3vM 9maXRcZGVmdGFiNzIwXGZvc z6sgLMvPWypa5KbGFC9voO5 pLEixRPfSXUuOM54Segku9G sCgboRPD2STIpktJen3Ogb5 gyGgPxnnTkQ9stG0MfNNLbR KYpTZXqDcKhsiKir4Ose2Cf cMOgtEs4n8edBZNiMLQdgWb sw0uqKWC7BJXkM8C4bTDrj9 mwGOpfVYXejLK0gyvfNAmpF BPezmZ6irtwSKyhFMFqsAN8 eummMPvcQWFeAgL9xsuzMPl wRTGhXOP7HEnzb572IQL8SL xzYmtwYWdlXHBnbmNvbnRcc GduZGVjXHBsYWluXHBsYWlu XGYwXGZzMjRccWxccGxhaW5 bPvCtFgKfWPysUM2bLJWuP4 bvtVBkEPHdDIZhT2ilCgFef U6peWruGMytzzKoVRj8WLT8 XHBhcn0= CLINICAL DATA (test x2koaXIeLDRoyTOnWhQkIIS code = 3355) zHSRjy1kqMPQxoRGxOdEoTm NcZnRuYmpcdWMxXGRlZmYwe 9wlc158iUDdf0evJZOmYiT2 vIIgJZUleWNqO971NDEfRFu sh2fad8KpURXgfGFjv1B8CI UEeeigmRb4xFnhX55eq2O6F asnM3drPHPsSXQrH2AzVU1x QNMpJfq9KBA9GNP9OSYsTBD vI5NkKF0wKHVrnLOlCIn6r6 lxeZjhEJEjSNT2h9txGNvos vIdTP2mkm1fpNo6o7wldjVt IOFdSWTevHCYBPTlZ5BfiWc jVr0tdIm9rEbhXzykTLV5Td e6EG8psq22zrh4jFmlOEEsn umbAgE5HTqgLLYhtlrcIKv8 MFxtYXJnbDcyMFxtYXJncjc yMFxtYXJndDcyMFxtYXJnYj trYRvbZVWyDUJ8NIobu758L VO5UTlut4aqw9lnrGKfJna7 FQNtJgAaNcfvZEenl7Cdg4e oPBHqrm5gWAB1rTIubMjct9 V2pZAlVOEdmOWuhtZxVUYhX hD7DFoaUW4bwf63DIVwRCL8 st1pwBGruPtslyRqlTOkHQx zH6PrZBPzm119KWBnX9SdQG Bnu2I0uuPhYvIcFSPyxDH9t eE6KUJiPPj1cWDjjmW2fcKd kKEqL4zyfO82MdBavYTdD7E vkM61XnZcrUAwA5XcaW99Qc DohOKaY9VwyX96AlAzhGFuX CExfSIsYj2tpOVhlXBlq8Go vVOhUYraL64cd553RGYjbjR pI0gjjQOxaxdgvEMebykcBF xciuN7QBAzQPAjOEbkPOSpF GZzMjBcbGFuZzEwMzNcaGlj tKvbGZfbIiBbQEZmILohB5w cZjFcZnMyMCBSaWdodCBtdW n9dYDmf5S0vHL0LWYbpSids QDbcOKnFtR1q3lexqNqSTXc DMWwx82hFRtkFYA1qPObltI zcGlyYXRvcnkgZmFpbHVyZV xwYXJ9 SPECIMEN SOURCE (test k0ppwLNjOSNmsTPhKcHcMEO code = 3377) yCNUnf2ncHTSmcLSaBpUcZc NcZnRuYmpcdWMxXGRlZmYwe 6ams976hZZnp4hgNHWdFqP2 nORhVPSlxEDkY563l5hic4z ojwFaiYE9DSGbPBU6ZCgywf RrmvL0YSmpfWZnAcR1OKmho kMeCWsjqcFmgsMdXin3YBPh V287YKA6wMvqf3hqENY0VXF tMESpAnAoEc5kuSItE033AM VfJRFIGMCevHs2NDAlkiEng iHwoLVEz386C268q4euNRMe ofRktRsGzchrh5tfA640NDZ hcGVydzEyMjQwXHBhcGVyaD D2XQLaSQ5harzoOdZnKY3tf wccWzRzKJ0yluu1EsDeKU0c cmdiNzIwXGhlYWRlcnkwXGZ ol4EzsafxTB4rB5Dqo2L3tH 9maXRcZGVmdGFiNzIwXGZvc n9sgLMkNOrvi4TuHYA2shO5 oKKynZYxZRGeQM77Iybjw8A aKatpBMA7TRRfckDru0Rnv3 bkFfUfboJmJ2hhO9PfJHIqW EFiXCXwTwOcelCqq4Mgg3Md xOHwaGz8f4adJEQsASMxtHs qx3taPFI7ZVRvA7W3wXKjj4 lzSJrqDRItgNG8zbdyVFpjW FAeauP8allaVZrpHNHnwRE4 eivuIYhdOPWwUfH8tqvcVRi nEFNxBGL8COjto873LFM6BB xzYmtwYWdlXHBnbmNvbnRcc GduZGVjXHBsYWluXHBsYWlu XGYwXGZzMjRccWxccGxhaW5 xMsHeAcXjAZfnCX8yZRIjN3 imwSIyCZFbDAIqS8kkMoKwc C0ltPgpDCjhfeNcOMGZF8nZ IFBMRVVSQUwgRkxVSURccGF yfQ== GROSS DESCRIPTION o8ykbZKdKWUyhGNcQnMfJQU (test code = 3366) rAPCzi4aeIAOquMKnXoZnMt NcZnRuYmpcdWMxXGRlZmYwe 1tcz532oSWzl2nhLPYmFfG8 iWToDMMyoIQtH270WJQzVUv yk9yff6ZzYJZymLHdu6Z4YM NOddbdqFn4zMezG27nj0B2Y aacX8ssNQHiAZIyQ9TuNC7f SJBrUec0MTS9OCX9EZWqIEM dZ8MaSZ1rPZWmlXCeHDk0u9 prmVetAAQeICM2v9vrWIszk nYvVW5nwl3eiQl6w0xqzeXc IYRqWLErmVKADWPfA7BmaHd uYz9qoZv9jSbwXrkqZGF2Gh q6LF0pzz39ynv6xLxxNPQxe zueInS5HLetOSMhzqzmSFp1 MFxtYXJnbDcyMFxtYXJncjc yMFxtYXJndDcyMFxtYXJnYj dxNBcwUTGkBSP4WOfmq857B CF3CXzat0zdc0zbbQPmEkm2 DPVvDeMlUntvEAcfx3Asf2j xRRXmok0fWNT8hTYcbBqkb5 N5aQGjVKKuqZZkxxLhXHRdS qZ6EMtzHQ4mqt22TMHaWMU4 ug6xoFJxqUcnqhUnpKDvFYj oM7QoNIJwb852WFUbK3ByQR Vvh6E8rbTrSoMpOAEarRU1s lR4ZVIwOPz0pMLybzS6wqYb cYXyR8ngoQ63ZoGunJRmQ1N fqW28UdMtuWFhD8NdwX98Vh PjqOIqY7JhpT00VhHbfIHwU FYgdFNfAg6hmRRksWDbx8Pm eRGcDGttZ90bt476CBLgnwO kT6xntWYegugevAEwyltzRA idutL2GZIwQAIgNQqgSZVbU GZzMjJcbGFuZzEwMzNcaGlj tSueTDwbKeOfUODgLYspS9t fCkVvDyOrZsD8DOHzgLswLW Gco27voZbjGQBilMJiq2Qny cWclNNqRGEjpHgmI5ZqFJdw MDIxNzIwXHBhciBSZWNlaXZ lZDogMDIxODIwXHBhcn0= STATEMENT OF ADEQUACY Satisfactory (test code = 2757) Gross assessment was [facility] performed at ([facility], code = 2777) Department of Pathology, [address] [place] [address], Technical component [facility] was performed at ([facility], code = 2778) Department of Pathology, [address] [place] [address], Professional component [facility] was performed at ([facility], code = 2779) Department of Pathology, [address] [place] [address], [facility] 11:47:00Medical Cytology Report Case: [id number] Aut horizing Provider: Fernando Andrews MD Collected: 04/14/2019 1548 Ordering Location: [facility] Received: 04/15/2019 0913 PERIOPERATIVE SERVICES Pathologist: Sean Piedra MD Specimen: Pleural, Right, Multi loculated pleural effusions RIGHT PLEURAL FLUID (CYTOSPINS): - NEGATIVE FOR MALIGNANCY PREDOMINANTLY BLOOD Signing Pathologist Direct Phone Line: [phone] signed by Sean Piedra MD on 04/15/2019 at 11:47 [id number] multi loculated pleural effusions, pneumonia, acute respiratory failureRIGHT PLEURAL UYDWG195 mls bloody; 4 cytospinsCollected: [id number]: [id number]ns [facility],Department of Pathology, [address] [place] [address], [facility], Department of Pathology, [address] [place] [address], [facility]vkS[facility], Department of Pathology, [address] [place] [address], DDZF-GLUCOSE [id number] 11:33:00 Test Item Value Reference Range Interpretation Comments POC-GLUCOSE METER 113 mg/dL 70-110 H : TESTED A T [facility] 6720 (BEAKER) (test code = ILDA Calvert [facility], 1538) [address]: Platform Material Handler Manager/Techni aaron ID = [id number] for JIGNA ALEJANDRE CBC W/PLT COUNT & AUTO [id number] 09:14:00 Test Item Value Reference Range Interpretation [...] PERCENT (BEAKER) (test code = 2801) CALCIUM, [id number] 06:51:00 Test Item Value Reference Range Interpretation Comments CALCIUM IONIZED (BEAKER) (test 1.11 mmol/L 1.12-1.27 L code = 698) PH, BLOOD (BEAKER) (test code = 7.47 1810) RAD, CHEST, 1 VIEW, NON [id number] 05:32:00Reason for exam:->s/p R VATSShould this be performed at the bedside?->YesFINAL REPORT CLINICAL INDICATION: Postop Comparison: 04/14/2019 2032 hours The cardiomediastinal contours are stable. Right-sided parenchymal and pleural opacities are similar toprevious. A small right pneumothorax is noted at the lateral mid to upper chest. Support lines are stable. Signed: Reji Tyler MDReport Verified Date/Time: 04/15/2019 05:32:15 BLOOD GAS, [id number] 05:01:00 Test Item Value Reference Range Interpretation [...] code = 1819) 100.0 % Lactic Acid, [id number] 04:56:00 Test Item Value Reference Range Interpretation Comments Lactate, Art (test code = 1.2 mmol/L 0.5-2.2 2874) DORI (test code = DORI) Platform Material Handler Manager ID - ELISSA M Lab Interpretation (test Normal code = 72738-5) [facility] HospitalBASI METABOLIC [id number] 04:56:00 Test Item Value Reference Range Interpretation [...] S NOT APPLICABLE FOR DIALYSIS PATIEN TS. Platform Material Handler Manager ID - ELISSA MLACTIC ACID, [id number] 04:56:00 Test Item Value Reference Range Interpretation Comments LACTATE BLOOD ARTERIAL (2) 1.2 mmol/L 0.5-2.2 (BEAKER) (test code = 2874) Platform Material Handler Manager ID - ELISSA [id number] 04:53:00 Test Item Value Reference Range Interpretation Comments PHOSPHORUS (BEAKER) (test code = 4.3 mg/dL 2.3-4.7 604) Platform Material Handler Manager ID - ELISSA [id number] 04:53:00 Test Item Value Reference Range Interpretation Comments MAGNESIUM (BEAKER) (test code = 2.0 mg/dL 1.6-2.6 627) Platform Material Handler Manager ID - ELISSA MCBC W/PLT COUNT & AUTO [id number] 04:41:00 Test Item Value Reference Range Interpretation [...] 0-1 PERCENT (BEAKER) (test code = 2801) [id number] 02:37:00 Test Item Value Reference Range Interpretation Comments Fibrinogen (test code = 3255-7) 177 mg/dl 225-434 L Lab Interpretation (test code = Abnormal 90405-7) [facility] HospitalPT/[id number] 02:37:00 Test Item Value Reference Range Interpretation Comments Protime (test code = 19.8 11.9- 14.2 H 5902-2) seconds INR (test code = 1.7 <=5.9 6301-6) PTT (test code = 41.1 22.5- 36.0 H 24567-3) seconds DORI (test code = DORI) Effective 07/24/2018: PT Reference Range ChangeNew: 11.9-14.2 Previous: 11.7-14.7 RECOMMENDED COUMADIN/WARFARIN INR THERAPY RANGESSTANDARD DOSE: 2.0-3.0 Includes: PROPHYLAXIS for venous thrombosis, systemic embolization; TREATMENT for venous thrombosis and/or pulmonary embolus.HIGH RISK: Target INR is 2.5-3.5 for patients wiht mechanical heart valves. Lab Interpretation Abnormal (test code = 86421-0) [facility] HospitalFIBRINOGEN2020-02-18 02:37:00 Test Item Value Reference Range Interpretation Comments FIBRINOGEN LEVEL (BEAKER) (test 177 mg/dl 225-434 L code = 658) [id number] 02:37:00 Test Item Value Reference Range Interpretation [...] INR is2.5-3.5 for patients wiht mechanical heart valves.[id number] 02:37:00 Test Item Value Reference Range Interpretation Comments PARTIAL THROMBOPLASTIN TIME 41.1 seconds 22.5-36.0 H (BEAKER) (test code = 760) PROTHROMBIN TIME/[id number] 02:36:00 Test Item Value Reference Range Interpretation [...] mechanical heart valves.CBC W/PLT COUNT & AUTO [id number] 01:17:00 Test Item Value Reference Range Interpretation Comments WHITE BLOOD CELL COUNT 10.9 K/ L 3.5-10.5 H (BEAKER) (test code = 775) RED BLOOD CELL COUNT 1.74 M/ L 4.63-6.08 L (BEAKER) (test code = 761) HEMOGLOBIN (BEAKER) 4.4 GM/DL 13.7-17.5 LL Post jordy stevie (test code = 410) specimen p er B.no.[id number]. HEMATOCRIT (BEAKER) 14.6 % 40.1-51.0 L (test [...] 0-1 GRANULOCYTES-RELATIVE PERCENT (BEAKER) (test code = 2809) [id number] 00:58:00 Test Item Value Reference Range Interpretation Comments Cortisol, Total (test code = 10.6 ug/dL 3.7-19.4 2755) DORI (test code = DORI) Platform Material Handler Manager ID - BS Lab Interpretation (test Normal code = 97094-1) [facility] HospitalCORTISOL2020-02-18 00:58:00 Test Item Value Reference Range Interpretation Comments CORTISOL, TOTAL (BEAKER) (test 10.6 ug/dL 3.7-19.4 code = 2755) Platform Material Handler Manager ID - BSPOCT-GLUCOSE [id number] 00:35:00 Test Item Value Reference Range Interpretation Comments POC-GLUCOSE METER 105 mg/dL 70-110 : TESTED A T [facility] 6720 (BEAKER) (test code = DOROTAJAVI [place], 1538) [address]: Platform Material Handler Manager/Techni aaron ID = [id number] for Yuli Conklin, CHEST, 1 VIEW, NON [id number] 22:34:00On arrival to [facility] for exam:->s/p R VATS decorticationShould [facility] e?->YesFINAL REPORT TECHNIQUE: Frontal view of [...] MDReport Verified Date/Time: 04/14/2019 22:34:49 Reading Location: [address] Consult Reading Room [id number] 20:24:00 Test Item Value Reference Range Interpretation Comments PHOSPHORUS (BEAKER) (test code = 4.0 mg/dL 2.3-4.7 604) Platform Material Handler Manager ID - TMODYCSCPGK3815-50-00 20:24:00 Test Item Value Reference Range Interpretation Comments MAGNESIUM (BEAKER) (test code = 1.8 mg/dL 1.6-2.6 627) Platform Material Handler Manager ID - BSBLOOD GAS, [id number] 20:22:00 Test Item Value Reference Range Interpretation [...] (test code = 1819) 80.0 % CALCIUM, [id number] 20:19:00 Test Item Value Reference Range Interpretation Comments CALCIUM IONIZED (BEAKER) (test 1.23 mmol/L 1.12-1.27 code = 698) PH, BLOOD (BEAKER) (test code = 7.44 1810) COMPREHENSIVE METABOLIC [id number] 19:53:00 Test Item Value Reference Range Interpretation [...] S NOT APPLICABLE FOR DIALYSIS PATIEN TS. Platform Material Handler Manager ID - BSHGB/HCT (H&H)-Stat [id number] 17:56:00 Test Item Value Reference Range Interpretation Comments Hemoglobin (test code = 786-4) 9.0 g/dL 13-16.8 L Hematocrit (test code = 4544-3) 26.0 % 40-50 L Lab Interpretation (test code = Abnormal 16571-9) [facility] HospitalPotassium-Stat [id number] 17:56:00 Test Item Value Reference Range Interpretation Comments Potassium (test code = 2823-3) 3.4 meq/L 3.6-5.5 L Lab Interpretation (test code = Abnormal 79159-4) [facility] HospitalBLOOD GAS, [id number] 17:56:00 Test Item Value Reference Range Interpretation [...] (test code = 1819) 100.0 % CALCIUM, [id number] 17:56:00 Test Item Value Reference Range Interpretation Comments CALCIUM IONIZED (BEAKER) (test 1.30 mmol/L 1.12-1.27 H code = 698) PH, BLOOD (BEAKER) (test code = 7.46 1810) POTASSIUM-STAT [id number] 17:56:00 Test Item Value Reference Range Interpretation Comments POTASSIUM (BEAKER) (test code = 3.4 meq/L 3.6-5.5 L 379) HGB/HCT (H&H) - STAT [id number] 17:56:00 Test Item Value Reference Range Interpretation Comments HEMOGLOBIN (BEAKER) (test code = 9.0 g/dL 13.0-16.8 L 410) HEMATOCRIT (BEAKER) (test code = 26.0 % 40.0-50.0 L 411) Glucose-Stat [id number] 17:55:00 Test Item Value Reference Range Interpretation Comments Glucose (test code = 2345-7) 100 mg/dL 70-110 Lab Interpretation (test code = Normal 07820-4) [facility] [id number] 17:55:00 Test Item Value Reference Range Interpretation Comments Sodium (test code = 2951-2) 138 meq/L 135-148 Lab Interpretation (test code = Normal 53249-7) [facility] HospitalGLUCOSE-STAT [id number] 17:55:00 Test Item Value Reference Range Interpretation Comments GLUCOSE RANDOM (BEAKER) (test code 100 mg/dL 70-110 = 652) SODIUM NA-STAT [id number] 17:55:00 Test Item Value Reference Range Interpretation Comments SODIUM (BEAKER) (test code = 381) 138 meq/L 135-148 BLOOD GAS, [id number] 16:42:00 Test Item Value Reference Range Interpretation [...] (test code = 1819) 100.0 % POTASSIUM-STAT [id number] 16:42:00 Test Item Value Reference Range Interpretation Comments POTASSIUM (BEAKER) (test code = 3.4 meq/L 3.6-5.5 L 379) HGB/HCT (H&H) - STAT [id number] 16:42:00 Test Item Value Reference Range Interpretation Comments HEMOGLOBIN (BEAKER) (test code = 10.1 g/dL 13.0-16.8 L 410) HEMATOCRIT (BEAKER) (test code = 30.0 % 40.0-50.0 L 411) CALCIUM, [id number] 16:41:00 Test Item Value Reference Range Interpretation Comments CALCIUM IONIZED (BEAKER) (test 1.12 mmol/L 1.12-1.27 code = 698) PH, BLOOD (BEAKER) (test code = 7.51 1810) GLUCOSE-STAT [id number] 16:39:00 Test Item Value Reference Range Interpretation Comments GLUCOSE RANDOM (BEAKER) (test code 104 mg/dL 70-110 = 652) SODIUM NA-STAT [id number] 16:39:00 Test Item Value Reference Range Interpretation Comments SODIUM (BEAKER) (test code = 381) 137 meq/L 135-148 GLUCOSE-STAT [id number] 15:31:00 Test Item Value Reference Range Interpretation Comments GLUCOSE RANDOM (BEAKER) (test code = 92 mg/dL 70-110 652) SODIUM NA-STAT [id number] 15:31:00 Test Item Value Reference Range Interpretation Comments SODIUM (BEAKER) (test code = 381) 135 meq/L 135-148 CALCIUM, [id number] 15:31:00 Test Item Value Reference Range Interpretation Comments CALCIUM IONIZED (BEAKER) (test 1.07 mmol/L 1.12-1.27 L code = 698) PH, BLOOD (BEAKER) (test code = 7.55 1810) BLOOD GAS, [id number] 15:31:00 Test Item Value Reference Range Interpretation [...] (test code = 1819) 100.0 % POTASSIUM-STAT [id number] 15:31:00 Test Item Value Reference Range Interpretation Comments POTASSIUM (BEAKER) (test code = 3.4 meq/L 3.6-5.5 L 379) HGB/HCT (H&H) - STAT [id number] 15:31:00 Test Item Value Reference Range Interpretation Comments HEMOGLOBIN (BEAKER) (test code = 10.2 g/dL 13.0-16.8 L 410) HEMATOCRIT (BEAKER) (test code = 30.0 % 40.0-50.0 L 411) RAD, CHEST, 1 VIEW, NON [id number] 10:51:00Reason for exam:->eval pleural effusionsShould this be [...] MDReport Verified Date/Time: 04/14/2019 10:51:03 Reading Location: [facility] Women Type and screen, automated 2019-04-14 02:31:00 Test Item Value Reference Range Interpretation Comments ABO/RH AUTOMATED (BEAKER) (test A NEGATIVE code = 2260) Ab Scrn (test code = 890-4) NEGATIVE [facility]ABOL[facility] [id number] 01:52:00 Test Item Value Reference Range Interpretation [...] S NOT APPLICABLE FOR DIALYSIS PATIEN TS. Platform Material Handler Manager ID - PIBECKY [id number] 01:51:00 Test Item Value Reference Range Interpretation Comments PHOSPHORUS (BEAKER) (test code = 2.8 mg/dL 2.3-4.7 604) Platform Material Handler Manager ID - PIBECKY [id number] 01:51:00 Test Item Value Reference Range Interpretation Comments MAGNESIUM (BEAKER) (test code = 2.1 mg/dL 1.6-2.6 627) Platform Material Handler Manager ID - EMILIE LCBC W/PLT COUNT & AUTO [id number] 01:30:00 Test Item Value Reference Range Interpretation [...] 417) IMMATURE GRANULOCYTES-RELATIVE 0 % 0-1 PERCENT (YELITZA) (test code = 2801) PROTHROMBIN TIME/[id number] 01:26:00 Test Item Value Reference Range Interpretation Comments PROTIME (YELITZA) (test code = 14.7 seconds 11.9-14.2 H 759) INR (YELITZA) (test code = 370) 1.2 <=5.9 Effective 07/24/2018: PT Reference Range ChangeNew: 11.9-14.2 Previous: 11.7- 14.7RECOMMENDED COUMADIN/WARFARIN INR THERAPY RANGESSTANDARD DOSE: 2.0-3.0 Includes: PROPHYLAXIS for venous thrombosis, systemic embolization; TREATMENT for venous thrombosis and/or pulmonary embolus.HIGH RISK: Target INR is2.5-3.5 for patients wiht mechanical heart valves.POCT-GLUCOSE [id number] 20:47:00 Test Item Value Reference Range Interpretation Comments POC-GLUCOSE METER 114 mg/dL 70-110 H : TESTED A T [facility] 6720 ([employer]) (test code = [facility], 1538) [address]: Platform Material Handler Manager/Techni aaron ID = [id number] for CL ROBERTO, ALBERTINA POCT-GLUCOSE [id number] 17:43:00 Test Item Value Reference Range Interpretation Comments POC-GLUCOSE METER 117 mg/dL 70-110 H : TESTED A T [facility] 6720 (BEAKER) (test code [facility], = 1538) [address]: Platform Material Handler Manager/Techni aaron ID = [id number] for LEWI S, LATANDRIA POCT-GLUCOSE [id number] 12:16:00 Test Item Value Reference Range Interpretation Comments POC-GLUCOSE METER 111 mg/dL 70-110 H : TESTED A T [facility] 6720 (BEFactorli) (test code [facility], = 1538) [address]: Platform Material Handler Manager/Techni aaron ID = [id number] for LEWI S, LATANDRIA RAD, CHEST, 1 VIEW, NON [id number] 08:47:00Reason for exam:->right pleural effusion s/p TPAShould [...] MDReport Verified Date/Time: 04/13/2019 08:47:02 Reading Location: [facility] B1 C013T Transitional Reading Room Electronically s igned [...] S NOT APPLICABLE FOR DIALYSIS PATIEN TS. Platform Material Handler Manager ID - KENNHepatic function [id number] 06:12:00 Test Item Value Reference Range Interpretation Comments Protein, Total (test code 5.5 6.0- 8.3 gm/dL L = 2885-2) Albumin (test code = 1.8 g/dL 3.5-5 L 21063-6) Total Bilirubin (test code 1.1 mg/dL 0.2-1.2 = 1975-2) Bilirubin, Direct (test 0.7 mg/dL 0.1-0.5 H code = 1968-7) Alkaline Phosphatase (test 157 U/L 40-150 H code = 6768-6) AST (test code = 1920-8) 38 U/L 5-34 H ALT (test code = 1742-6) 34 U/L 6-55 DORI (test code = DORI) Platform Material Handler Manager ID - CHELSEY Lab Interpretation (test Abnormal code = 40976-7) [facility] HospitalHEPATIC FUNCTION [id number] 06:12:00 Test Item Value Reference Range Interpretation [...] (test code = 34 U/L 6-55 347) Platform Material Handler Manager ID - KAUSHIKTANIAOCT-GLUCOSE [id number] 06:10:00 Test Item Value Reference Range Interpretation Comments POC-GLUCOSE METER 126 mg/dL 70-110 H : TESTED A T [facility] 6720 (BEAKER) (test code = ILDA [place], 1538) [address]: Platform Material Handler Manager/Techni aaron ID = [id number] for CH UA, HENRISON CBC W/PLT COUNT & AUTO [id number] 06:07:00 Test Item Value Reference Range Interpretation [...] 0-1 PERCENT (BEAKER) (test code = 2801) [id number] 06:07:00 Test Item Value Reference Range Interpretation Comments PHOSPHORUS (BEAKER) (test code = 3.0 mg/dL 2.3-4.7 604) Platform Material Handler Manager ID - [id number] 06:07:00 Test Item Value Reference Range Interpretation Comments MAGNESIUM (BEAKER) (test code = 2.1 mg/dL 1.6-2.6 627) Platform Material Handler Manager ID - [id number] 05:52:00 Test Item Value Reference Range Interpretation Comments PARTIAL THROMBOPLASTIN TIME 32.7 seconds 22.5-36.0 (BEAKER) (test code = 760) POCT-GLUCOSE [id number] 17:32:00 Test Item Value Reference Range Interpretation Comments POC-GLUCOSE METER 83 mg/dL 70-110 : TESTED A T [facility] 6720 (BEAKER) (test code = [facility], 1538) [address]: Platform Material Handler Manager/Techni aaron ID = [id number] for STOJ CIC, NADA Body fluid culture + gram [id number] 14:07:00 Test Item Value Reference Range Interpretation Comments Result (test code = No growth 6463-4) Gram Stain Result <1+ gram negative rods (test code = 1123) [facility] [id number] 14:07:00 Test Item Value Reference Range Interpretation Comments CULTURE (BEAKER) (test No growth code = 1095) GRAM STAIN RESULT <1+ WBCs (BEAKER) (test code = 1123) GRAM STAIN RESULT <1+ gram negative rods (BEAKER) (test code = 66661) POCT-GLUCOSE [id number] 12:20:00 Test Item Value Reference Range Interpretation Comments POC-GLUCOSE METER 84 mg/dL 70-110 : TESTED A T [facility] 6720 (BEAKER) (test code = [facility], 1538) [address]: Platform Material Handler Manager/Techni aaron ID = [id number] for STOJ CIC, NADA RAD, CHEST, 1 VIEW, NON [id number] 07:44:00Reason for exam:->eval pleural effusionsShould this be [...] Rivas MDReport Verified Date/Time: 04/12/201907:44:33 Reading Location: [place] [id number] CT Body Reading Room BASIC METABOLIC [id number] 06:46:00 Test Item Value Reference Range Interpretation [...] S NOT APPLICABLE FOR DIALYSIS PATIEN TS. Platform Material Handler Manager ID - ELISSA MCBC W/PLT COUNT & AUTO [id number] 06:45:00 Test Item Value Reference Range Interpretation [...] 0-1 PERCENT (BEAKER) (test code = 2801) [id number] 06:45:00 Test Item Value Reference Range Interpretation Comments PHOSPHORUS (BEAKER) (test code = 3.8 mg/dL 2.3-4.7 604) Platform Material Handler Manager ID - ELISSA [id number] 06:45:00 Test Item Value Reference Range Interpretation Comments MAGNESIUM (BEAKER) (test code = 2.1 mg/dL 1.6-2.6 627) Platform Material Handler Manager ID - ELISSA MPOCT-GLUCOSE [id number] 05:33:00 Test Item Value Reference Range Interpretation Comments POC-GLUCOSE METER 78 mg/dL 70-110 : [facility] T [facility] 6720 [facility] (test code = ILDA Calvert [facility], 1538) [address]: Platform Material Handler Manager/Techni aaron ID = [id number] for LEGA ZIYAD GAFFNEYINE POCT-GLUCOSE [id number] 00:19:00 Test Item Value Reference Range Interpretation Comments POC-GLUCOSE METER 78 mg/dL 70-110 : Notified RN/MD: TESTED (YELITZA) (test code = AT [facility] 67[address] [facility] 1538) [facility], 770 30: Platform Material Handler Manager/Techni aaron ID = [id number] for LEGThanh GAFFNEY BARI POCT-GLUCOSE [id number] 17:51:00 Test Item Value Reference Range Interpretation Comments POC-GLUCOSE METER 89 mg/dL 70-110 : TESTED A T [facility] 6720 ([facility]) (test code = [facility] Enrike [facility], 1538) [address]: Platform Material Handler Manager/Techni aaron ID = [id number] for RADHA CLAROS RAD, CHEST, 1 VIEW, NON [id number] 13:20:00Reason for exam:->eval pleural effusionsShould this be [...] MDReport Verified Date/Time: 04/11/2019 13:20:58 ReadingLocation: [facility] Reading Room POCT-GLUCOSE METER 2019-04-11 12:21:00 Test Item Value Reference Range Interpretation Comments POC-GLUCOSE METER 82 mg/dL 70-110 : TESTED A T [facility] 6720 (BEAKER) (test code = [place], 1538) [address]: Platform Material Handler Manager/Techni aaron ID = [id number] for RADHA CLAROS POCT-GLUCOSE [id number] 10:51:00 Test Item Value Reference Range Interpretation Comments POC-GLUCOSE METER 84 mg/dL 70-110 : TESTED A T [facility] 6720 (BEAKER) (test code = ILDA Cal[place], 1538) 78[address]: Platform Material Handler Manager/Techni aaron ID = [id number] for MIKE DAVIDSON BASIC METABOLIC [id number] 08:47:00 Test Item Value Reference Range Interpretation [...] S NOT APPLICABLE FOR DIALYSIS PATIEN TS. Platform Material Handler Manager ID Sultana SCOTT [id number] 08:46:00 Test Item Value Reference Range Interpretation Comments PHOSPHORUS (BEAKER) (test code = 3.3 mg/dL 2.3-4.7 604) Platform Material Handler Manager ID Sultana SCOTT [id number] 08:46:00 Test Item Value Reference Range Interpretation Comments MAGNESIUM (BEAKER) (test code = 2.2 mg/dL 1.6-2.6 627) Platform Material Handler Manager ANGELI SCOTT FPOCT-GLUCOSE [id number] 07:13:00 Test Item Value Reference Range Interpretation Comments POC-GLUCOSE METER 84 mg/dL 70-110 : TESTED A T [facility] 6720 (BEAKER) (test code = [place], 1538) 54[address]: Platform Material Handler Manager/Techni aaron ID = [id number] for MARÍA DON CBC W/PLT COUNT & AUTO [id number] 06:26:00 Test Item Value Reference Range Interpretation [...] PERCENT (BEAKER) (test code = 2801) PROTHROMBIN [id number] 06:22:00 Test Item Value Reference Range Interpretation [...] is2.5-3.5 for patients wiht mechanical heart valves.POCT-GLUCOSE [id number] 00:28:00 Test Item Value Reference Range Interpretation Comments POC-GLUCOSE METER 97 mg/dL 70-110 : TESTED A T [facility] 6720 (BEAKER) (test code = [employer] [facility], 1538) 7[address]: Platform Material Handler Manager/Techni aaron ID = [id number] for MARIPOSA MARÍA FENG POCT-GLUCOSE [id number] 15:14:00 Test Item Value Reference Range Interpretation Comments POC-GLUCOSE METER 97 mg/dL 70-110 : TESTED A T [facility] 6720 (BEAKER) (test code = [employer] [facility], 1538) 65390: Platform Material Handler Manager/Techni aaron ID = [id number] for JAVIER IVY RAD, CHEST, 1 VIEW, NON [id number] 09:36:00Reason for exam:->eval pleural effusionsShould this be [...] Signed: JR Marek, Christie Sanz Verified Date/Time: 04/10/2019 09:36:48 Reading Location: [facility] Radiology ReadingRoom BASIC METABOLIC PANEL 2019-04-10 [...] S NOT APPLICABLE FOR DIALYSIS PATIEN TS. Platform Material Handler Manager ID - [id number] 06:06:00 Test Item Value Reference Range Interpretation Comments PHOSPHORUS (BEAKER) (test code = 3.7 mg/dL 2.3-4.7 604) Platform Material Handler Manager ID - [id number] 06:06:00 Test Item Value Reference Range Interpretation Comments MAGNESIUM (BEAKER) (test code = 2.0 mg/dL 1.6-2.6 627) Platform Material Handler Manager ID - LACBC W/PLT COUNT & AUTO [id number] 05:54:00 Test Item Value Reference Range Interpretation [...] PERCENT (BEAKER) (test code = 2801) POCT-GLUCOSE [id number] 00:49:00 Test Item Value Reference Range Interpretation Comments POC-GLUCOSE METER 113 mg/dL 70-110 H : TESTED A T [facility] 6720 (BEAKER) (test code = [facility], 1538) 65347: Platform Material Handler Manager/Techni aaron ID = [id number] for ALBERTINA MEADE POCT-GLUCOSE [id number] 17:50:00 Test Item Value Reference Range Interpretation Comments POC-GLUCOSE METER 86 mg/dL 70-110 : TESTED A T [facility] 6720 (BEAKER) (test code = [facility], 153) 14678: Platform Material Handler Manager/Techni aaron ID = [id number] for ADILSON CIC, NADA FL, ESOPH, SWALLOW FUNCTION, WITH CINE OR [id number] 16:22:00Reason for exam:->dysphagia, on TFsFINAL REPORT Modified [...] MDReport Verified Date/Time: 04/09/2019 16:22:18 Reading Location: [facility] Radiology Reading Room POCT-GLUCOSE [id number] 12:00:00 Test Item Value Reference Range Interpretation Comments POC-GLUCOSE METER 97 mg/dL 70-110 : TESTED A T [facility] 6720 (BEAKER) (test code = [facility], 153) 91413: Platform Material Handler Manager/Techni aaron ID = [id number] for PRISCILLA RAMON POCT-GLUCOSE [id number] 09:53:00 Test Item Value Reference Range Interpretation Comments POC-GLUCOSE METER 102 mg/dL 70-110 : TESTED A T [facility] 6720 (BEAKER) (test code = [facility], 1538) 68635: Platform Material Handler Manager/Techni aaron ID = [id number] for PRISCILLA HEBERT RAD, CHEST, 1 VIEW, NON [id number] 07:20:00Reason for exam:->eval pleural effusionsShould this be [...] MDReport Verified Date/Time: 04/09/2019 07:20:55 Reading Location: [facility] Radiology Reading Room Electronically signed by: CHRISTIE Piña 04/09/2019 07:20 [id number] 06:48:00 Test Item Value Reference Range Interpretation Comments PHOSPHORUS (BEAKER) (test code = 2.8 mg/dL 2.3-4.7 604) Platform Material Handler Manager ID - [id number] 06:48:00 Test Item Value Reference Range Interpretation Comments MAGNESIUM (BEAKER) (test code = 1.8 mg/dL 1.6-2.6 627) Platform Material Handler Manager ID - GALAPBASIC METABOLIC [id number] 06:48:00 Test Item Value Reference Range Interpretation [...] S NOT APPLICABLE FOR DIALYSIS PATIEN TS. Platform Material Handler Manager ID - GALAPCBC W/PLT COUNT & AUTO [id number] 06:39:00 Test Item Value Reference Range Interpretation [...] PERCENT (BEAKER) (test code = 2801) POCT-GLUCOSE [id number] 06:29:00 Test Item Value Reference Range Interpretation Comments POC-GLUCOSE METER 70 mg/dL 70-110 : TESTED A T [facility] 6720 (BEAKER) (test code = [facility], 153) 78523: Platform Material Handler Manager/Techni aaron ID = [id number] for DOROTHY GERMAN SAURAV POCT-GLUCOSE [id number] 05:40:00 Test Item Value Reference Range Interpretation Comments POC-GLUCOSE METER 90 mg/dL 70-110 : TESTED A T [facility] 6720 (BEAKER) (test code = [facility], 153) 37709: Platform Material Handler Manager/Techni aaron ID = [id number] for VAN KEARNEYID POCT-GLUCOSE [id number] 17:57:00 Test Item Value Reference Range Interpretation Comments POC-GLUCOSE METER 90 mg/dL 70-110 : TESTED A T [facility] 6720 (BEAKER) (test code = [facility], 153) 42422: Platform Material Handler Manager/Techni aaron ID = [id number] for ADILSON PRUITT, NADA POCT-GLUCOSE [id number] 12:47:00 Test Item Value Reference Range Interpretation Comments POC-GLUCOSE METER 97 mg/dL 70-110 : TESTED A T [facility] 6720 (BEAKER) (test code = [facility], 153) 01958: Platform Material Handler Manager/Techni aaron ID = [id number] for JAVIER IVY RAD, CHEST, 1 VIEW, NON [id number] 07:33:00Reason for exam:->eval pleural effusionsShould this be [...] changes.Additional findings: None. Signed: JR Marek, Christie MDReport Verified Date/Time: 04/08/2019 07:33:22 Reading Location: [facility] Radiology Reading Room POCT-GLUCOSE [id number] 05:33:00 Test Item Value Reference Range Interpretation Comments POC-GLUCOSE METER 97 mg/dL 70-110 : TESTED A T [facility] 6720 (BEAKER) (test code = ILDA Calvert [facility], 1538) 16071: Platform Material Handler Manager/Techni aaron ID = [id number] for ELIAZAR DEY BASIC METABOLIC [id number] 05:33:00 Test Item Value Reference Range Interpretation [...] S NOT APPLICABLE FOR DIALYSIS PATIEN TS. Platform Material Handler Manager ID - [id number] 05:16:00 Test Item Value Reference Range Interpretation Comments PHOSPHORUS (BEAKER) (test code = 2.5 mg/dL 2.3-4.7 604) Platform Material Handler Manager ID - [id number] 05:16:00 Test Item Value Reference Range Interpretation Comments MAGNESIUM (BEAKER) (test code = 1.9 mg/dL 1.6-2.6 627) Platform Material Handler Manager ID - GALAPCBC W/PLT COUNT & AUTO [id number] 05:10:00 Test Item Value Reference Range Interpretation [...] PERCENT (BEAKER) (test code = 2801) POCT-GLUCOSE [id number] 00:34:00 Test Item Value Reference Range Interpretation Comments POC-GLUCOSE METER 111 mg/dL 70-110 H : [facility] ([facility] = [facility], 1538) 07131: Platform Material Handler Manager/Techni aaron ID = [id number] for ELIAZAR ANAND BASIC METABOLIC [id number] 18:38:00 Test Item Value Reference Range Interpretation [...] S NOT APPLICABLE FOR DIALYSIS PATIEN TS. Platform Material Handler Manager ID - BSPOCT-GLUCOSE [id number] 17:48:00 Test Item Value Reference Range Interpretation Comments POC-GLUCOSE METER 113 mg/dL 70-110 H : TESTED A T [facility] 6720 (BEAKER) (test code = ILDA Calvert [facility], 1538) 18339: Platform Material Handler Manager/Techni aaron ID = [id number] for MARQUIS SMITH FUNGUS CULTURE + [id number] 17:33:00 Test Item Value Reference Range Interpretation Comments CULTURE (AKER) A Same organi sm has been (test code = isolated from 1095) cultures(s) of the same body site and collection date . Repeat identification and susceptibility testing performed only after consultation wi the clinical microb iology laboratory. FUNGUS SMEAR No fungi seen (BEAKER) (test code = 1406) Refer to previous culture of Ana albicansAlbumin Pleural [id number] 16:52:00 Test Item Value Reference Range Interpretation Comments Albumin, Pleural Fluid (test code = 0.8 1748-3) [facility] [id number] 16:50:00 Test Item Value Reference Range Interpretation Comments PROTEIN, TOTAL, PLEURAL FLUID (test 2.6 code = 2882-9) [facility] [id number] 11:47:00 Test Item Value Reference Range Interpretation Comments POC-GLUCOSE METER 102 mg/dL 70-110 : TESTED A T [facility] 6720 (BEAKER) (test code = ILDA Calvert [facility], 1538) 53564: Platform Material Handler Manager/Techni aaron ID = [id number] for MARQUIS SMITH RAD, CHEST, 1 VIEW, NON [id number] 11:26:00Reason for exam:->S/p L chest tube removalFINAL [...] MDReport Verified Date/Time: 04/07/2019 11:26:55 Reading Location: [facility] [place] Radiology Reading Room RAD, CHEST, 1 VIEW, NON [id number] 10:15:00Reason for exam:->eval pleural effusionsShould this be [...] MDReport Verified Date/Time: 04/07/2019 10:15:23 Reading Location: [facility] [place] [facility]iology Reading Room 10:15 [id number] 08:15:00 Test Item Value Reference Range Interpretation Comments PHOSPHORUS (BEAKER) (test code = 3.3 mg/dL 2.3-4.7 604) Platform Material Handler Manager ID - PHILIP [id number] 08:15:00 Test Item Value Reference Range Interpretation Comments MAGNESIUM (BEAKER) (test code = 2.0 mg/dL 1.6-2.6 627) Platform Material Handler Manager ID - PHILIP CBASIC METABOLIC [id number] 08:15:00 Test Item Value Reference Range Interpretation [...] S NOT APPLICABLE FOR DIALYSIS PATIEN TS. Platform Material Handler Manager ID - PHILIP CCBC W/PLT COUNT & AUTO [id number] 07:40:00 Test Item Value Reference Range Interpretation [...] PERCENT (BEAKER) (test code = 2801) POCT-GLUCOSE [id number] 06:50:00 Test Item Value Reference Range Interpretation Comments POC-GLUCOSE METER 92 mg/dL 70-110 : TESTED A T [facility] 6720 [facility] (test code = [facility], [facility]) 22660: Platform Material Handler Manager/Techni aaron ID = [id number] for BIANKA DEYIA POCT-GLUCOSE [id number] 00:17:00 Test Item Value Reference Range Interpretation Comments POC-GLUCOSE METER 109 mg/dL 70-110 : TESTED A T [facility] 6720 (BEAKER) (test code = [facility], [facility]) 99972: Platform Material Handler Manager/Techni aaron ID = [id number] for BIANKA ANANDIA POCT-GLUCOSE [id number] 18:05:00 Test Item Value Reference Range Interpretation Comments POC-GLUCOSE METER 100 mg/dL 70-110 : TESTED A T [facility] 6720 (BEAKER) (test code = [facility], 153) 92994: Platform Material Handler Manager/Techni aaron ID = [id number] for JOHN KATHLEEN RICARDO POCT-GLUCOSE [id number] 18:05:00 Test Item Value Reference Range Interpretation Comments POC-GLUCOSE METER 90 mg/dL 70-110 : TESTED A T [facility] 6720 (BEAKER) (test code = [facility], 153) 35834: Platform Material Handler Manager/Techni aaron ID = [id number] for CLAY REBOLLEDO EVANS BASIC METABOLIC [id number] 17:33:00 Test Item Value Reference Range Interpretation [...] S NOT APPLICABLE FOR DIALYSIS PATIEN TS. Platform Material Handler Manager ID - ALMA FERNANDEZAD, CHEST, 1 VIEW, NON [id number] 08:21:00Reason for exam:->eval pleural effusionsShould this be [...] Signed: Delaney Rajan Verified Date/Time: 04/06/2019 08:21:47 [id number] 07:38:00 Test Item Value Reference Range Interpretation Comments PHOSPHORUS (BEAKER) (test code = 3.7 mg/dL 2.3-4.7 604) Platform Material Handler Manager ID - SONIA [id number] 07:38:00 Test Item Value Reference Range Interpretation Comments MAGNESIUM (BEAKER) (test code = 2.1 mg/dL 1.6-2.6 627) Platform Material Handler Manager ID Sultana SCOTT FBASIC METABOLIC [id number] 07:38:00 Test Item Value Reference Range Interpretation [...] S NOT APPLICABLE FOR DIALYSIS PATIEN TS. Platform Material Handler Manager ID Sultana SCOTT FCBC W/PLT COUNT & AUTO [id number] 07:35:00 Test Item Value Reference Range Interpretation [...] PERCENT (BEAKER) (test code = 2801) POCT-GLUCOSE [id number] 05:27:00 Test Item Value Reference Range Interpretation Comments POC-GLUCOSE METER 89 mg/dL 70-110 : TESTED A T [facility] 6720 (BEAKER) (test code = ILDA Calvert [facility], 1538) 41876: Platform Material Handler Manager/Techni aaron ID = [id number] for CANDIDO LEMUS BASIC METABOLIC [id number] 17:09:00 Test Item Value Reference Range Interpretation [...] S NOT APPLICABLE FOR DIALYSIS PATIEN TS. Platform Material Handler Manager ID - ELISSA MPOCT-GLUCOSE [id number] 11:34:00 Test Item Value Reference Range Interpretation Comments POC-GLUCOSE METER 104 mg/dL 70-110 : TESTED A T [facility] 6720 (BEAKER) (test code = ILDA [place], 1538) 84409: Platform Material Handler Manager/Techni aaron ID = [id number] for JIGNA ALEJANDRE BASIC METABOLIC [id number] 05:51:00 Test Item Value Reference Range Interpretation [...] S NOT APPLICABLE FOR DIALYSIS PATIEN TS. Platform Material Handler Manager ID - ELISSA [id number] 05:43:00 Test Item Value Reference Range Interpretation Comments PHOSPHORUS (BEAKER) (test code = 3.5 mg/dL 2.3-4.7 604) Platform Material Handler Manager ID - ELISSA [id number] 05:43:00 Test Item Value Reference Range Interpretation Comments MAGNESIUM (BEAKER) (test code = 1.9 mg/dL 1.6-2.6 627) Platform Material Handler Manager ID - ELISSA MCBC W/PLT COUNT & AUTO [id number] 05:28:00 Test Item Value Reference Range Interpretation [...] = 2801) RAD, CHEST, 1 VIEW, NON [id number] 04:46:00Reason for exam:->eval pleural effusionsShould this be [...] Stiles MDReport Verified Date/Time: 04/05/2019 04:46:52 POCT-GLUCOSE [id number] 23:55:00 Test Item Value Reference Range Interpretation Comments POC-GLUCOSE METER 103 mg/dL 70-110 : TESTED A T [facility] 6720 (BEAKER) (test code [facility], = 1538) 71475: Platform Material Handler Manager/Techni aaron ID = [id number] for JACKSON BOLDEN FUNGUS CULTURE + [id number] 18:09:00 Test Item Value Reference Range Interpretation Comments CULTURE (BEAKER) A 2+ Ana albicans (test code = 1095) FUNGUS SMEAR No fungi seen (BEAKER) (test code = 1406) RAD, ABDOMEN/KUB, 1 VIEW [id number] 18:03:00Reason for exam:->TFFINAL REPORT Abdomen date 04/04/2019 Comment: Frontal view of the abdomen demonstrates a feeding tube present with tip noted in the descending duodenum. Signed: Tomasa Foss MDReport Verified Date/Time: 04/04/2019 18:03:16 Reading Location: [facility] C013W Consult Reading Room XR abdomen / KUB 1 [id number] 18:03:00Interface, External Ris In - 04/04/2019 6:05 PM CSTFINAL REPORT Abdomen date04/04/2019 Comment: Frontal view of the abdomen demonstrates a feeding tube present with tip noted inthe descending duodenum. Signed: Tomasa Fosseport Verified Date/Time: 04/04/2019 18:03:16 Reading Location: [facility] C013W Consult Reading Room [facility] [id number] 17:54:00 Test Item Value Reference Range Interpretation Comments POC-GLUCOSE METER 82 mg/dL 70-110 : TESTED A T [facility] 6720 (BEAKER) (test code = ILDA [place], 1538) 67959: Platform Material Handler Manager/Techni aaron ID = [id number] for MJ COLE, ISABELA BASIC METABOLIC [id number] 17:40:00 Test Item Value Reference Range Interpretation [...] S NOT APPLICABLE FOR DIALYSIS PATIEN TS. Platform Material Handler Manager ID - BSRAD, ABDOMEN/KUB, 1 VIEW [id number] 15:46:00Reason for exam:- >korpak placementFINAL REPORT RAD, [...] Garcia Verified Date/Time: 04/04/2019 15:46:45 Reading Location: [facility] Radiology Reading Room POCT-GLUCOSE [id number] 12:21:00 Test Item Value Reference Range Interpretation Comments POC-GLUCOSE METER 94 mg/dL 70-110 : TESTED A T [facility] 6720 (YELITZA) (test code = DOROTAJAVI Calvert [facility], 1538) 81991: Platform Material Handler Manager/Techni aaron ID = [id number] for SAND ERS, ISABELA RAD, CHEST, 1 VIEW, NON [id number] 08:56:00Reason for exam:->eval pleural effusion, CT in [...] surgical changes.Additional findings: None. Signed: Yonathan Infante MDReport Verified Date/Time: 04/04/2019 08:56:32 Reading Location: [facility] Radiology Reading Room CBC W/PLT COUNT [...] PERCENT (BEAKER) (test code = 2801) POCT-GLUCOSE [id number] 05:41:00 Test Item Value Reference Range Interpretation Comments POC-GLUCOSE METER 107 mg/dL 70-110 : TESTED A T [facility] 6720 (BEAKER) (test code = IL[place], 1538) 37623: Platform Material Handler Manager/Techni aaron ID = [id number] for EDISON BELTRAN [id number] 05:17:00 Test Item Value Reference Range Interpretation Comments PHOSPHORUS (BEAKER) (test code = 4.2 mg/dL 2.3-4.7 604) Platform Material Handler Manager ID - ELISSA [id number] 05:17:00 Test Item Value Reference Range Interpretation Comments MAGNESIUM (BEAKER) (test code = 1.9 mg/dL 1.6-2.6 627) Platform Material Handler Manager ID - ELISSA MBASIC METABOLIC [id number] 05:17:00 Test Item Value Reference Range Interpretation [...] S NOT APPLICABLE FOR DIALYSIS PATIEN TS. Platform Material Handler Manager ID - ELISSA MPOCT-GLUCOSE [id number] 00:06:00 Test Item Value Reference Range Interpretation Comments POC-GLUCOSE METER 109 mg/dL 70-110 : TESTED A T [facility] 6720 (BEAKER) (test code = [facility], 1538) 62727: Platform Material Handler Manager/Techni aaron ID = [id number] for EDISON BELTRAN [id number] 20:00:00 Test Item Value Reference Range Interpretation Comments MAGNESIUM (BEAKER) 1.9 mg/dL 1.6-2.6 Specimen slightly (test code = 627) hemolyzed Platform Material Handler Manager ID - BSPOCT-GLUCOSE [id number] 17:14:00 Test Item Value Reference Range Interpretation Comments POC-GLUCOSE METER 114 mg/dL 70-110 H : TESTED A T [facility] 6720 (BEAKER) (test code = [facility] [employer] [facility], 1538) 95397: Platform Material Handler Manager/Techni aaron ID = [id number] for COLLIN ESCOBAR BASIC METABOLIC [id number] 16:17:00 Test Item Value Reference Range Interpretation [...] S NOT APPLICABLE FOR DIALYSIS PATIEN TS. Platform Material Handler Manager ID - BSPOCT-GLUCOSE [id number] 12:20:00 Test Item Value Reference Range Interpretation Comments POC-GLUCOSE METER 108 mg/dL 70-110 : TESTED A T [facility] 6720 (BEAKER) (test code = [facility], 1538) 28606: Platform Material Handler Manager/Techni aaron ID = [id number] for STEFANI FARMER POCT-GLUCOSE [id number] 06:08:00 Test Item Value Reference Range Interpretation Comments POC-GLUCOSE METER 96 mg/dL 70-110 : TESTED A T [facility] 6720 (BEAKER) (test code = [facility], 1538) 40269: Platform Material Handler Manager/Techni aaron ID = [id number] for LISAAnton ARIESBecca RAD, CHEST, 1 VIEW, NON [id number] 05:49:00Reason for exam:->chest tubesShould this be performed [...] There is no pneumothorax. Signed: Nakia Goldstein MDReport Verified Date/Time: 04/03/2019 05:49:51 [id number] 02:46:00 Test Item Value Reference Range Interpretation Comments PHOSPHORUS (BEAKER) (test code = 3.1 mg/dL 2.3-4.7 604) Platform Material Handler Manager ID - SANDRA [id number] 02:46:00 Test Item Value Reference Range Interpretation Comments MAGNESIUM (BEAKER) (test code = 1.8 mg/dL 1.6-2.6 627) Platform Material Handler Manager ID - SANDRA WBASIC METABOLIC [id number] 02:46:00 Test Item Value Reference Range Interpretation [...] S NOT APPLICABLE FOR DIALYSIS PATIEN TS. Platform Material Handler Manager ID - SANDRA WCBC W/PLT COUNT & AUTO [id number] 02:35:00 Test Item Value Reference Range Interpretation [...] PERCENT (BEAKER) (test code = 2801) POCT-GLUCOSE [id number] 00:12:00 Test Item Value Reference Range Interpretation Comments POC-GLUCOSE METER 87 mg/dL 70-110 : TESTED A T [facility] 6720 (BEAKER) (test code = [place], 1538) 26206: Platform Material Handler Manager/Techni aaron ID = [id number] for SUGU , SHEENAMOL [id number] 23:01:00 Test Item Value Reference Range Interpretation Comments PARTIAL THROMBOPLASTIN TIME 88.0 seconds 22.5-36.0 H (BEAKER) (test code = 760) BASIC METABOLIC [id number] 18:04:00 Test Item Value Reference Range Interpretation [...] S NOT APPLICABLE FOR DIALYSIS PATIEN TS. Platform Material Handler Manager ID - [id number] 17:41:00 Test Item Value Reference Range Interpretation Comments PARTIAL THROMBOPLASTIN TIME 75.2 seconds 22.5-36.0 H (BEAKER) (test code = 760) POCT-GLUCOSE [id number] 17:38:00 Test Item Value Reference Range Interpretation Comments POC-GLUCOSE METER 100 mg/dL 70-110 : TESTED A T [facility] 6720 ([employer]) (test code = [facility], 1538) 53041: Platform Material Handler Manager/Techni aaron ID = [id number] for ELADIA WHELAN POCT-GLUCOSE [id number] 12:31:00 Test Item Value Reference Range Interpretation Comments POC-GLUCOSE METER 88 mg/dL 70-110 : TESTED A T [facility] 6720 ([employer]) (test code = [facility], 1538) 98431: Platform Material Handler Manager/Techni aaron ID = [id number] for WILL IAMS, ELADIA RAD, CHEST, 1 VIEW, NON [id number] 09:47:00Reason for exam:->naShould this be performed at the bedside?->YesFINAL REPORT Comparison: 04/01/2019 TECHNIQUE: Single view of the chest FINDINGS: Patchy interstitial opacities and small pleural effusions, right greater than left are stable. No gross pneumothorax. Interval removal of right internal jugular central line. Remaining support lines and tubes are stable. Signed: Aiden Willett MDReport Verified Date/Time: 04/02/2019 09:47:11 Reading Location: [facility] Radiology Reading Room 09:47 [id number] 08:29:00 Test Item Value Reference Range Interpretation Comments PARTIAL THROMBOPLASTIN TIME 41.5 seconds 22.5-36.0 H (BEAKER) (test code = 760) POCT-GLUCOSE [id number] 05:53:00 Test Item Value Reference Range Interpretation Comments POC-GLUCOSE METER 96 mg/dL 70-110 : TESTED A T [facility] 6720 (BEAKER) (test code = [place], 1538) 31554: Platform Material Handler Manager/Techni aaron ID = [id number] for ANN BOLDENMOL [id number] 02:06:00 Test Item Value Reference Range Interpretation Comments PARTIAL THROMBOPLASTIN TIME 75.8 seconds 22.5-36.0 H (BEAKER) (test code = 760) [id number] 01:58:00 Test Item Value Reference Range Interpretation Comments PHOSPHORUS (BEAKER) (test code = 3.3 mg/dL 2.3-4.7 604) Platform Material Handler Manager ID - [id number] 01:58:00 Test Item Value Reference Range Interpretation Comments MAGNESIUM (BEAKER) (test code = 1.8 mg/dL 1.6-2.6 627) Platform Material Handler Manager ID - ASBASIC METABOLIC [id number] 01:58:00 Test Item Value Reference Range Interpretation [...] S NOT APPLICABLE FOR DIALYSIS PATIEN TS. Platform Material Handler Manager ID - ASBLOOD GAS, [id number] 01:35:00 Test Item Value Reference Range Interpretation [...] 21.0 % CBC W/PLT COUNT & AUTO [id number] 01:35:00 Test Item Value Reference Range Interpretation [...] PERCENT (BEAKER) (test code = 2801) POCT-GLUCOSE [id number] 00:00:00 Test Item Value Reference Range Interpretation Comments POC-GLUCOSE METER 100 mg/dL 70-110 : TESTED A T [facility] 6720 (BEAKER) (test code [facility], = 1538) 88943: Platform Material Handler Manager/Techni aaron ID = [id number] for SUGU , SHEENAMOL BASIC METABOLIC [id number] 19:33:00 Test Item Value Reference Range Interpretation [...] S NOT APPLICABLE FOR DIALYSIS PATIEN TS. Platform Material Handler Manager ID - [id number] 19:04:00 Test Item Value Reference Range Interpretation Comments PARTIAL THROMBOPLASTIN TIME 57.5 seconds 22.5-36.0 H (BEAKER) (test code = 760) POCT-GLUCOSE [id number] 18:18:00 Test Item Value Reference Range Interpretation Comments POC-GLUCOSE METER 105 mg/dL 70-110 : TESTED A T [facility] 6720 (BEAKER) (test code = [facility], 1538) 29905: Platform Material Handler Manager/Techni aaron ID = [id number] for [place] LLIAMS, ELADIA POCT-GLUCOSE [id number] 11:54:00 Test Item Value Reference Range Interpretation Comments POC-GLUCOSE METER 90 mg/dL 70-110 : TESTED A T [facility] 6720 [facility] (test code = [facility], 1538) 76811: Platform Material Handler Manager/Techni aaron ID = [id number] for WILL IAMS, ELADIA [id number] 11:32:00 Test Item Value Reference Range Interpretation Comments PARTIAL THROMBOPLASTIN TIME 70.7 seconds 22.5-36.0 H ([facility]) (test code = 760) RAD, CHEST, 1 VIEW, NON [id number] 10:46:00Reason for exam:->CT in placeShould this be [...] MDReport Verified Date/Time: 04/01/2019 10:46:42 Reading Location: [facility] Radiology Reading Room Legionella [id number] 10:17:00 Test Item Value Reference Range Interpretation Comments Result (test code = No Legionella species 6463-4) [facility] [id number] 10:17:00 Test Item Value Reference Range Interpretation Comments CULTURE (BEAKER) No Legionella species (test code = 1095) isolated POCT-GLUCOSE [id number] 06:39:00 Test Item Value Reference Range Interpretation Comments POC-GLUCOSE METER 100 mg/dL 70-110 : [facility] (BEAKER) (test code [facility], = 1538) 41390: Platform Material Handler Manager/Techni aaron ID = [id number] for SUGU , SHEENAMOL [id number] 04:13:00 Test Item Value Reference Range Interpretation Comments PARTIAL THROMBOPLASTIN TIME 108.7 seconds 22.5-36.0 H (BEAKER) (test code = 760) BLOOD GAS, [id number] 04:03:00 Test Item Value Reference Range Interpretation [...] (BEAKER) (test code = 1819) 21.0 % [id number] 03:53:00 Test Item Value Reference Range Interpretation Comments PHOSPHORUS (BEAKER) (test code = 3.9 mg/dL 2.3-4.7 604) Platform Material Handler Manager ID Sultana BOWERS [id number] 03:53:00 Test Item Value Reference Range Interpretation Comments MAGNESIUM (BEAKER) (test code = 2.1 mg/dL 1.6-2.6 627) Platform Material Handler Manager ID - ELISSA MBASIC METABOLIC [id number] 03:53:00 Test Item Value Reference Range Interpretation [...] S NOT APPLICABLE FOR DIALYSIS PATIEN TS. Platform Material Handler Manager ID - ELISSA MCBC W/PLT COUNT & AUTO [id number] 03:44:00 Test Item Value Reference Range Interpretation [...] PERCENT (BEAKER) (test code = 2801) POCT-GLUCOSE [id number] 00:02:00 Test Item Value Reference Range Interpretation Comments POC-GLUCOSE METER 87 mg/dL 70-110 : TESTED A T [facility] 6720 (BEAKER) (test code = [place], 1538) 06791: Platform Material Handler Manager/Techni aaron ID = [id number] for KIMI RENETTAMYLA [id number] 22:40:00 Test Item Value Reference Range Interpretation Comments PARTIAL THROMBOPLASTIN TIME 43.8 seconds 22.5-36.0 H (BEAKER) (test code = 760) [id number] 20:55:00 Test Item Value Reference Range Interpretation Comments PARTIAL THROMBOPLASTIN TIME 115.9 seconds 22.5-36.0 H (BEAKER) (test code = 760) POCT-GLUCOSE [id number] 18:19:00 Test Item Value Reference Range Interpretation Comments POC-GLUCOSE METER 92 mg/dL 70-110 : TESTED A T [facility] 6720 (BEAKER) (test code = ILDA R [facility], 1538) 27529: Platform Material Handler Manager/Techni aaron ID = [id number] for ELADIA KEARNEY [id number] 16:03:00Medical Cytology Report Case: [id number] Authorizing Provider: Jerald Bartlett Collected: 03/28/2019 Kimberly Whitney MD Ordering Location: [place] [address] ICU Received: 03/28/2019 1332 Pathologist: Lexus Robbins MD Specimen: Pleural PLEURAL FLUID (CYTOSPINS): - RARE REACTIVE MESOTHELIAL CELLS PRESENT IN A BACKGROUND OF ABUNDANT ACUTE INFLAMMATION Signing Pathologist Direct Phone Line: [phone] signed by Lexus Robbins MD on 03/31/2019 at 4:03 [id number] effusion; HFpEF, bioprosthetic valve, COPD, Afib, and chronic right pleural effusion who presented to OSH on 03/11 w/ respiratory failure and now bilateral pleural effusionsPLEURAL FLUID (LATERALITY NOT DESIGNATED)Received 20 ml dark orange fluidPrepared 4 cytospinsCollected: [id number]: [id number].[facility], Department of Pa thology, [address] [place] [address], [facility], Department of Pathology, [address] [place] [address], [facility]xlzftS[facility], Department of Pathology, [address] [place] [address], Zdwbeteg I 2019-03-31 14:43:00 Test Item Value Reference Range Interpretation Comments Troponin I (test code = 0.20 ng/mL 0-0.03 33504-4) DORI (test code = DORI) Troponin I [...] acidosis, acute neurological disease, and persistent tachyarrhythmia.Opera tor ID - SONIA F Lab Interpretation (test Abnormal code = 61775-9) [facility] [id number] 14:43:00 Test Item Value Reference Range Interpretation [...] failure, acidosis, acute neurological disease, and persistent tachyarrhythmia.Platform Material Handler Manager ID - SONIA FCOMPREHENSIVE METABOLIC [id number] 14:39:00 Test Item Value Reference Range Interpretation [...] S NOT APPLICABLE FOR DIALYSIS PATIEN TS. Platform Material Handler Manager ID Sultana SONIA [id number] 14:33:00 Test Item Value Reference Range Interpretation Comments PHOSPHORUS (BEAKER) (test code = 3.7 mg/dL 2.3-4.7 604) Platform Material Handler Manager ID Sultana SONIA [id number] 14:33:00 Test Item Value Reference Range Interpretation Comments MAGNESIUM (BEAKER) (test code = 2.1 mg/dL 1.6-2.6 627) Platform Material Handler Manager ID Sultana SONIA FBASIC METABOLIC [id number] 14:33:00 Test Item Value Reference Range Interpretation [...] S NOT APPLICABLE FOR DIALYSIS PATIEN TS. [id number] 14:31:00 Test Item Value Reference Range Interpretation [...] INR is2.5-3.5 for patients wiht mechanical heart valves.[id number] 14:31:00 Test Item Value Reference Range Interpretation Comments PARTIAL THROMBOPLASTIN TIME 68.3 seconds 22.5-36.0 H (BEAKER) (test code = 760) Lactic acid, [id number] 14:30:00 Test Item Value Reference Range Interpretation Comments Lactate, Venous (test code 1.7 mmol/L 0.5-2.2 = 2872) DORI (test code = DORI) Platform Material Handler Manager ID - SONIA Lloyd Lab Interpretation (test Normal code = 26745-9) [facility] [id number] 14:30:00 Test Item Value Reference Range Interpretation Comments LACTATE BLOOD VENOUS (2) (BEAKER) 1.7 mmol/L 0.5-2.2 (test code = 2872) Platform Material Handler Manager ID - SONIA FRAD, CHEST, 1 VIEW, NON [id number] 12:14:00Reason for exam:->CT in placeShould this be [...] Maldonado Verified Date/Time: 03/31/2019 12:14:06 Reading Location: [facility] Reading Room POCT-GLUCOSE [id number] 12:02:00 Test Item Value Reference Range Interpretation Comments POC-GLUCOSE METER 97 mg/dL 70-110 : TESTED A T [facility] 6720 ([facility] (test code = [place], 1538) 62981: Platform Material Handler Manager/Techni aaron ID = [id number] for WILL IAMS, ELADIA RAD, ABDOMEN/KUB, 1 VIEW [id number] 11:36:00Reason for exam:->NGT placement FINAL REPORT RAD, ABDOMEN/KUB, 1 VIEW AP INDICATION: NGT placement COMPARISON: None TECHNIQUE: Limited portable radiograph of the lower chest and upper abdomen was acquired for purposes of evaluating nasogastric tube placement FINDINGS:Nasogastric tube tip overlies the stomach Signed: Yonathan Garcia Verified Date/Time: 03/31/2019 11:36:59 Reading Location: [facility] Radiology Reading Room TROPONIN [id number] 10:05:00 Test Item Value Reference Range Interpretation Comments TROPONIN I (YELITZA) (test code = 0.25 ng/mL 0.00-0.03 397) [...] failure, acidosis, acute neurological disease, and persistent tachyarrhythmia.Platform Material Handler Manager ID - SONIA [id number] 07:11:00 Test Item Value Reference Range Interpretation Comments PARTIAL THROMBOPLASTIN TIME 44.8 seconds 22.5-36.0 H (BEAKER) (test code = 760) BLOOD GAS, [id number] 06:56:00 Test Item Value Reference Range Interpretation [...] code = 1819) 40.0 % BASIC METABOLIC [id number] 06:08:00 Test Item Value Reference Range Interpretation [...] S NOT APPLICABLE FOR DIALYSIS PATIEN TS. Platform Material Handler Manager ID - PIAYA LPOCT-GLUCOSE [id number] 05:52:00 Test Item Value Reference Range Interpretation Comments POC-GLUCOSE METER 89 mg/dL 70-110 : TESTED A T [facility] 6720 (BEAKER) (test code = [place], 1538) 16091: Platform Material Handler Manager/Techni aaron ID = [id number] for EDISON CALDWELL [id number] 05:29:00 Test Item Value Reference Range Interpretation Comments PARTIAL THROMBOPLASTIN TIME 111.7 seconds 22.5-36.0 H (BEAKER) (test code = 760) [id number] 05:27:00 Test Item Value Reference Range Interpretation Comments PHOSPHORUS (BEAKER) (test code = 3.6 mg/dL 2.3-4.7 604) Platform Material Handler Manager ID - PIBECKY [id number] 05:27:00 Test Item Value Reference Range Interpretation Comments MAGNESIUM (BEAKER) (test code = 2.1 mg/dL 1.6-2.6 627) Platform Material Handler Manager ID - EMILIE LLACTIC ACID, [id number] 04:56:00 Test Item Value Reference Range Interpretation Comments LACTATE BLOOD VENOUS (2) (BEAKER) 1.8 mmol/L 0.5-2.2 (test code = 2872) Platform Material Handler Manager ID - EMILIE LCBC W/PLT COUNT & AUTO [id number] 04:41:00 Test Item Value Reference Range Interpretation [...] (BEAKER) (test code = 2801) BLOOD GAS, [id number] 04:30:00 Test Item Value Reference Range Interpretation [...] = 1819) 40.0 % CT, BRAIN, WITHOUT [id number] 04:20:00FINAL REPORT EXAM: CT, BRAIN, WITHOUT CONTRAST [...] recommended for further characterization. Signed: Tomasa Luque MDReport VerifiedDate/Time: 03/31/2019 04:20:24 CT brain without IV [id number] 04:20:00Interface, External Ris In - 03/31/2019 4:22 [...] recommended for further characterization. Signed: Tomasa Luque MDReport Verified Date/Time: 03/31/2019 04:20:24 Electronic ally signed by: TOMASA LUQUE MD on 03/31/2019 04:20 [facility] [id number] 02:38:00 Test Item Value Reference Range Interpretation Comments TROPONIN I ([facility]) (test code = 0.22 ng/mL 0.00-0.03 [facility]) Troponin I (TnI) levels must be interpreted [...] failure, acidosis, acute neurological disease, and persistent tachyarrhythmia.Platform Material Handler Manager ID - LCBECKY LB-TYPE NATRIURETIC FACTOR (BNP)2019-03-31 02:23:00 Test Item Value Reference Range Interpretation Comments B-TYPE NATRIURETIC PEPTIDE 1761 pg/mL 0-100 H ([facility]) (test code = 700) Platform Material Handler Manager ID - LCBECKY LLACTIC ACID, [id number] 02:14:00 Test Item Value Reference Range Interpretation Comments LACTATE BLOOD VENOUS (2) ([facility]) 1.8 mmol/L 0.5-2.2 (test code = 2872) Platform Material Handler Manager ID - EMILIE LPOCT-GLUCOSE [id number] 00:30:00 Test Item Value Reference Range Interpretation Comments POC-GLUCOSE METER 94 mg/dL 70-110 : TESTED A T [facility] 6720 ([facility]) (test code = [place], 1538) 70306: Platform Material Handler Manager/Techni aaron ID = [id number] for EDISON CALDWELL CT, CHEST WITH IV CONTRAST- PE TEST [id number] 00:25:00FINAL REPORT Comparison: CT chest dated 03/17/2019 [...] Amy Hanson MDReport Verified Date/Time: 03/31/2019 00:25:44 [facility] for pulmonary [id number] 00:25:00Interface, External Ris In - 03/31/2019 12:29 [...] anterior eighth right rib. Signed: Amy Hanson [facility] Verified Date/Time: 03/31/2019 00:25:44 [facility] HospitalMAGNESIUM2020-02-02 21:46:00 Test Item Value Reference Range Interpretation Comments MAGNESIUM (BEAKER) (test code = 2.1 mg/dL 1.6-2.6 627) Platform Material Handler Manager ID - [facility]OMPREHENS[facility] METABOLIC [id number] 21:46:00 Test Item Value Reference Range Interpretation [...] S NOT APPLICABLE FOR DIALYSIS PATIEN TS. Platform Material Handler Manager ID - NTPOperator ID - KAUSHIKNTROPONIN [id number] 21:23:00 Test Item Value Reference Range Interpretation [...] failure, acidosis, acute neurological disease, and persistent tachyarrhythmia.Platform Material Handler Manager ID - [id number] 21:21:00 Test Item Value Reference Range Interpretation Comments PHOSPHORUS (BEAKER) (test code = 4.5 mg/dL 2.3-4.7 604) Platform Material Handler Manager ID - NTPLACTIC ACID, [id number] 21:15:00 Test Item Value Reference Range Interpretation Comments LACTATE BLOOD VENOUS (2) (BEAKER) 4.5 mmol/L 0.5-2.2 H (test code = 2872) Platform Material Handler Manager ID - NTPRAD, CHEST, 1 VIEW, NON [id number] 21:13:00Reason for exam:->cardiac arrestShould this be performed [...] Hanson Verified Date/Time: 03/30/2019 21:13:13 POC- Calcium [id number] 20:57:00 Test Item Value Reference Range Interpretation Comments POC-Calcium Ionized 1.63 mmol/L 1.12-1.[address] [facility] (test code = 1536) 67[address] [facility] 7703 0 Lab Interpretation (test Abnormal code = 34522-4) [facility]PO[facility]-[id number] 20:57:00 Test Item Value Reference Range Interpretation Comments POC-Hemoglobin (test code 9.5 g/dL 13-16.8 L TE STED AT [facility] = 1856) 67[address] [facility] [address] [facility] 6720 [facility] 7703 0 Lab Interpretation (test Abnormal code = 89720-2) [facility] HospitalPOCT-[id number] 20:57:00 Test Item Value Reference Range Interpretation Comments POC-Hematocrit (test code 28 % 40-50 L TE STED AT [facility] = 1857) 6720 [facility] 7703 0 Lab Interpretation (test Abnormal code = 52357-4) [facility] HospitalPO[facility]CALCIUM [id number] 20:57:00 Test Item Value Reference Range Interpretation Comments POC-CALCIUM IONIZED 1.63 mmol/L 1.12-1.27 HH TESTED A T [place] [address] ([facility]) (test code = [facility] 1536) [address] [id number]-[id number] 20:57:00 Test Item Value Reference Range Interpretation Comments POC-HEMATOCRIT 28 % 40-50 L TESTED AT [place] [address] ([facility]) (test code = [place] [address] 1857) [id number] 20:57:00 Test Item Value Reference Range Interpretation Comments POC-HEMOGLOBIN 9.5 g/dL 13.0-16.8 L TESTED AT [facility] 6720 (YELITZA) (test code = [place] 1856) [address] AT [facility] 6720 [facility] [address] POC-Blood gases, [id number] 20:56:00 Test Item Value Reference Range Interpretation Comments Temp. Celsius-POC (test 36.1 code = 1834) FIO2-POC (test code = [address] [facility] 1835) [address] [place] [address] 7703 0 pH, Arterial-POC (test 7.320 7.350-7.450 [...] 1841) Lab Interpretation (test Abnormal code = 34495-5) [facility]-[id number] 20:56:00 Test Item Value Reference Range Interpretation Comments POC-Potassium (test code 4.1 meq/L 3.6-5.[address] [facility] = 1540) [address] [place] [address] 7703 0 Lab Interpretation (test Normal code = 60476-0) [facility]-[id number] 20:56:00 Test Item Value Reference Range Interpretation Comments POC-Sodium (test code = 147 meq/L 135-[address] [facility] 1542) [address] [place] [address] 7703 0 Lab Interpretation (test Normal code = 29879-9) [facility]-[id number] 20:56:00 Test Item Value Reference Range Interpretation Comments POC-Glucose (test code = 249 mg/dL 70-110 [address] [address] [facility] 1855) 6720 [facility] 7703 0 Lab Interpretation (test Abnormal code = 51847-7) [facility]PO[facility]OOD GASES, [id number] 20:56:00 Test Item Value Reference Range Interpretation Comments TEMP, CELSIUS-POC 36.1 (BEAKER) (test code = 1834) FIO2-POC (BEAKER) [address] [facility] 67 (test code = 1835) [place] [address] PH, ARTERIAL-POC 7.320 7.350-7.450 L (BEAKER) (test [...] H ARTERIAL-POC (BEAKER) (test code = 1841) [id number] 20:56:00 Test Item Value Reference Range Interpretation Comments POC-SODIUM (BEAKER) 147 meq/L 135-[address] [facility] 6720 (test code = 1542) [place] [address] XQBY-[id number] 20:56:00 Test Item Value Reference Range Interpretation Comments POC-POTASSIUM 4.1 meq/L 3.6-5.5 TESTED AT [facility] 6720 (BEAKER) (test code [facility] [address] = 1540) [id number] 20:56:00 Test Item Value Reference Range Interpretation Comments POC-GLUCOSE (BEAKER) 249 mg/dL 70-[address] [facility] 6720 (test code = 1855) [place] [address] CBC W/PLT COUNT & AUTO [id number] 20:54:00 Test Item Value Reference Range Interpretation [...] H PERCENT (BEAKER) (test code = 2801) [id number] 18:34:00 Test Item Value Reference Range Interpretation Comments PARTIAL THROMBOPLASTIN TIME 74.5 seconds 22.5-36.0 H (BEAKER) (test code = 760) POCT-GLUCOSE [id number] 18:06:00 Test Item Value Reference Range Interpretation Comments POC-GLUCOSE METER 123 mg/dL 70-110 H : TESTED A T [facility] 6720 (BEAKER) (test code = [place], 1538) [address]: Platform Material Handler Manager/Techni aaron ID = [id number] for VILLAR YES, CRYSTAL BASIC METABOLIC [id number] 16:18:00 Test Item Value Reference Range Interpretation [...] S NOT APPLICABLE FOR DIALYSIS PATIEN TS. Platform Material Handler Manager ID - [id number] 12:36:00 Test Item Value Reference Range Interpretation Comments PARTIAL THROMBOPLASTIN TIME 80.4 seconds 22.5-36.0 H (BEAKER) (test code = 760) POCT-GLUCOSE [id number] 12:00:00 Test Item Value Reference Range Interpretation Comments POC-GLUCOSE METER 116 mg/dL 70-110 H : TESTED A T [facility] 6720 (BEAKER) (test code = ILDA Enrike [facility], 1538) [address]: Platform Material Handler Manager/Techni aaron ID = [id number] for SA MONTILLA, ISABELA BLOOD [id number] 11:00:00 Test Item Value Reference Range Interpretation Comments CULTURE (BEAKER) (test No growth in 5 days code = 1095) BLOOD [id number] 11:00:00 Test Item Value Reference Range Interpretation Comments CULTURE (BEAKER) (test No growth in 5 days code = 1095) RAD, CHEST, 1 VIEW, NON [id number] 10:31:00Reason for exam:->CT in placeShould this be [...] MDReport Verified Date/Time: 03/30/2019 10:31:51 Reading Location: [address] Transitional Reading Room [id number] 06:59:00 Test Item Value Reference Range Interpretation Comments PARTIAL THROMBOPLASTIN TIME 53.3 seconds 22.5-36.0 H (BEAKER) (test code = 760) POCT-GLUCOSE [id number] 06:06:00 Test Item Value Reference Range Interpretation Comments POC-GLUCOSE METER 103 mg/dL 70-110 : TESTED A T [facility] 6720 (BEAKER) (test code = [facility] Enrike [facility], 1538) [address]: Platform Material Handler Manager/Techni aaron ID = [id number] for SILVIO BARRETT [id number] 05:16:00 Test Item Value Reference Range Interpretation Comments PHOSPHORUS (BEAKER) (test code = 3.4 mg/dL 2.3-4.7 604) Platform Material Handler Manager ID - LCAYA [id number] 05:16:00 Test Item Value Reference Range Interpretation Comments MAGNESIUM (BEAKER) (test code = 2.2 mg/dL 1.6-2.6 627) Platform Material Handler Manager ID Sultana PHAN LBASIC METABOLIC [id number] 05:16:00 Test Item Value Reference Range Interpretation [...] S NOT APPLICABLE FOR DIALYSIS PATIEN TS. Platform Material Handler Manager ID - EMILIE [id number] 05:13:00 Test Item Value Reference Range Interpretation Comments PARTIAL THROMBOPLASTIN TIME 118.9 seconds 22.5-36.0 H (BEAKER) (test code = 760) CBC W/PLT COUNT & AUTO [id number] 04:58:00 Test Item Value Reference Range Interpretation [...] PERCENT (BEAKER) (test code = 2801) POCT-GLUCOSE [id number] 00:28:00 Test Item Value Reference Range Interpretation Comments POC-GLUCOSE METER 108 mg/dL 70-110 : TESTED A T [facility] 6720 (BEAKER) (test code = [place], 1538) [address]: Platform Material Handler Manager/Techni aaron ID = [id number] for SILVIO BARRETT POCT-GLUCOSE [id number] 18:26:00 Test Item Value Reference Range Interpretation Comments POC-GLUCOSE METER 90 mg/dL 70-110 : TESTED A T [facility] 6720 (BEAKER) (test code = [facility], 1538) [address]: Platform Material Handler Manager/Techni aaron ID = [id number] for MJ COLE, ISABELA BASIC METABOLIC [id number] 12:56:00 Test Item Value Reference Range Interpretation [...] S NOT APPLICABLE FOR DIALYSIS PATIEN TS. Platform Material Handler Manager ID - PIAYA LPOCT-GLUCOSE [id number] 12:30:00 Test Item Value Reference Range Interpretation Comments POC-GLUCOSE METER 109 mg/dL 70-110 : TESTED A T [facility] 6720 (BEAKER) (test code = [facility], 1538) [address]: Platform Material Handler Manager/Techni aaron ID = [id number] for NDERS, ISABELA RAD, CHEST, 1 VIEW, NON [id number] 09:49:00Reason for exam:->ETT, chest tubesShould this be [...] MDReport Verified Date/Time: 03/29/2019 09:49:18 Reading Location: [address] Transitional Reading Room POCT-GLUCOSE [id number] 06:12:00 Test Item Value Reference Range Interpretation Comments POC-GLUCOSE METER 115 mg/dL 70-110 H : TESTED A T [facility] 6720 (BEAKER) (test code = ILDA Calvert [facility], 1538) [address]: Platform Material Handler Manager/Techni aaron ID = [id number] for AUNG GALEASVAL BASIC METABOLIC [id number] 04:51:00 Test Item Value Reference Range Interpretation [...] S NOT APPLICABLE FOR DIALYSIS PATIEN TS. Platform Material Handler Manager ID - PIAYA LCBC W/PLT COUNT & AUTO [id number] 04:44:00 Test Item Value Reference Range Interpretation [...] 0-1 PERCENT (BEAKER) (test code = 2801) [id number] 04:43:00 Test Item Value Reference Range Interpretation Comments PHOSPHORUS (BEAKER) (test code = 4.4 mg/dL 2.3-4.7 604) Platform Material Handler Manager ID - EMILIE [id number] 04:43:00 Test Item Value Reference Range Interpretation Comments MAGNESIUM (BEAKER) (test code = 2.2 mg/dL 1.6-2.6 627) Platform Material Handler Manager ID - EMILIE [id number] 04:39:00 Test Item Value Reference Range Interpretation Comments PARTIAL THROMBOPLASTIN TIME 83.9 seconds 22.5-36.0 H (BEAKER) (test code = 760) POCT-GLUCOSE [id number] 00:34:00 Test Item Value Reference Range Interpretation Comments POC-GLUCOSE METER 112 mg/dL 70-110 H : TESTED A T [facility] 6720 (BEAKER) (test code = [facility], 1538) [address]: Platform Material Handler Manager/Techni aaron ID = [id number] for VAL KULKARNI VANCOMYCIN LEVEL, [id number] 23:23:00 Test Item Value Reference Range Interpretation Comments VANCOMYCIN TROUGH (BEAKER) (test 17.0 ug/mL 10.0-20.0 code = 522) Platform Material Handler Manager ID - [id number] 21:15:00 Test Item Value Reference Range Interpretation Comments PARTIAL THROMBOPLASTIN TIME 84.7 seconds 22.5-36.0 H (BEAKER) (test code = 760) POCT-GLUCOSE [id number] 17:46:00 Test Item Value Reference Range Interpretation Comments POC-GLUCOSE METER 110 mg/dL 70-110 : TESTED A T [facility] 6720 (BEAKER) (test code = [facility], 1538) [address]: Platform Material Handler Manager/Techni aaron ID = [id number] for SLIME COLEY BASIC METABOLIC [id number] 16:41:00 Test Item Value Reference Range Interpretation [...] S NOT APPLICABLE FOR DIALYSIS PATIEN TS. Platform Material Handler Manager ID - AAHAMIDANG, DRAINAGE TUBE CHANGE (GASTRO, [...] blood loss: < 5 cc. Specimen: None. charter boat operator: Nato Dang MD. Drying Tumbler Operator: Lauren. Fluoroscopy Time: 0.5 min.Reference Air [...] removed over the guidewire. A new 8.5 [place] Cook multipurpose drainage catheter was advanced over [...] MDReport Verified Date/Time: 03/28/2019 14:57:26 Reading Location: [facility] P048 Angio Body Reading Room IR Drainage Catheter [id number] 14:57:00Interface, External Ris In - 03/28/2019 2:59 PM CSTFINAL REPORT Fluoroscopic guided replacement of a right chest tube. History: Patient's right chest tube has been retracted and is poorly draining.. Modality: Fluoroscopy Sedation: None Anesthesia: Two percent Lidocaine without epinephrine. Approach: Existing right chest tube Estimated blood loss: < 5 cc. Specimen: None. charter boat operator: Nato Dang MD. Drying Tumbler Operator: [facility]. Fluoroscopy Time: 0.5 min.Reference Air Kerma [...] removed over the guidewire. A new 8.5 [place] Cook multipurpose drainage catheter wasadvanced over the [...] Dang Verified Date/Time: 03/28/2019 14:57:26 Reading Location: [facility] B1 P048 Angio Body Reading Room [facility] [id number] 14:39:00 Test Item Value Reference Range Interpretation Comments PARTIAL THROMBOPLASTIN TIME 77.6 seconds 22.5-36.0 H (BEAKER) (test code = 760) POCT-GLUCOSE [id number] 13:05:00 Test Item Value Reference Range Interpretation Comments POC-GLUCOSE METER 96 mg/dL 70-110 : TESTED A T [facility] 6720 [facility] (test code = [place], 1538) [address]: Platform Material Handler Manager/Techni aaron ID = [id number] for SLIME RAMAN RAD, CHEST, 1 VIEW, NON [id number] 06:59:00Reason for exam:->ETT, chest tubesShould this be [...] MDReport Verified Date/Time: 03/28/2019 06:59:41 Reading Location: [facility] Reading Room [id number] 06:54:00 Test Item Value Reference Range Interpretation Comments PARTIAL THROMBOPLASTIN TIME 36.3 seconds 22.5-36.0 H (BEAKER) (test code = 760) [id number] 05:09:00 Test Item Value Reference Range Interpretation Comments PARTIAL THROMBOPLASTIN TIME 111.4 seconds 22.5-36.0 H (BEAKER) (test code = 760) [id number] 05:05:00 Test Item Value Reference Range Interpretation Comments PHOSPHORUS (BEAKER) (test code = 5.0 mg/dL 2.3-4.7 H 604) Platform Material Handler Manager ID Sultana FLORES [id number] 05:05:00 Test Item Value Reference Range Interpretation Comments MAGNESIUM (BEAKER) (test code = 2.2 mg/dL 1.6-2.6 627) Platform Material Handler Manager ID Sultana FLORES WBASIC METABOLIC [id number] 05:05:00 Test Item Value Reference Range Interpretation [...] S NOT APPLICABLE FOR DIALYSIS PATIEN TS. Platform Material Handler Manager ID Sultana FLORES WCBC W/PLT COUNT & AUTO [id number] 05:01:00 Test Item Value Reference Range Interpretation [...] (BEAKER) (test code = 2801) pH, body [id number] 03:46:00 Test Item Value Reference Range Interpretation Comments pH, Body Fluid 7.5 (test code = 2748-2) PH FLUID TYPE Body fluid Reference (test code = range:Reference 71922-1) ranges have not been established on thistype of flu id for this test. DORI (test code Performing Lab = DORI) *RYLEY [facility], [address] [place] [address] Pearl Kent MD, PhD [facility] HospitalPO[facility]SE [id number] 00:25:00 Test Item Value Reference Range Interpretation Comments POC-GLUCOSE METER 114 mg/dL 70-110 H : TESTED A T [facility] 6720 (BEAKER) (test code = [facility], 1538) 564[address]: Platform Material Handler Manager/Techni aaron ID = [id number] for EDISON BELTRAN POCT-GLUCOSE [id number] 17:52:00 Test Item Value Reference Range Interpretation Comments POC-GLUCOSE METER 111 mg/dL 70-110 H : TESTED A T [facility] 6720 (BEAKER) (test code = [facility], 1538) 24852: Platform Material Handler Manager/Techni aaron ID = [id number] for ELADIA WHELAN BASIC METABOLIC [id number] 17:02:00 Test Item Value Reference Range Interpretation [...] S NOT APPLICABLE FOR DIALYSIS PATIEN TS. Platform Material Handler Manager ID - [id number] 12:34:00 Test Item Value Reference Range Interpretation Comments PARTIAL THROMBOPLASTIN TIME 82.8 seconds 22.5-36.0 H (BEAKER) (test code = 760) Sputum Culture + Gram [id number] 11:50:00 Test Item Value Reference Range Interpretation Comments Result (test code = See comment 6463-4) Gram Stain Result No organisms seen (test code = 1123) DORI (test code = 2+ YeastNo Normal DORI) respiratory rigo [facility] [id number] 11:50:00 Test Item Value Reference Range Interpretation Comments CULTURE (BEAKER) (test See comment code = 1095) GRAM STAIN RESULT 4+ WBCs (BEAKER) (test code = 1123) GRAM STAIN RESULT 0-5 epithelial cells (BEAKER) (test code = 558832) GRAM STAIN RESULT No organisms seen (BEAKER) (test code = 606620) 2+ YeastNo Normal respiratory rigo presentPOCT-GLUCOSE [id number] 11:42:00 Test Item Value Reference Range Interpretation Comments POC-GLUCOSE METER 117 mg/dL 70-110 H : Pt. refu sed rpt tst: (BEAKER) (test code = TESTED AT [facility] 6759 1533) [facility], [address]: Platform Material Handler Manager/Techni aaron ID = [id number] for ELADIA WHELAN BLOOD [id number] 11:00:00 Test Item Value Reference Range Interpretation Comments CULTURE (BEAKER) (test No growth in 5 days code = 1095) BLOOD [id number] 11:00:00 Test Item Value Reference Range Interpretation Comments CULTURE (BEAKER) (test No growth in 5 days code = 1095) Adenosine Deaminase, [id number] 10:22:00 Test Item Value Reference Interpretation Comments [...] of thistest [facility] b [facility] [place] [place] This test shouldnot be us ed for diagnosis witho ut confirmation by other medically estab lished means. DORI (test code = Performing Lab DORI) [address] [facility], [address] [facility] [place] [address] Pearl Kent MD, PhD Lab Interpretation Abnormal (test code = 94030-5) [facility] HospitalRAD, [facility]ST, 1 VIEW, NON [id number] 06:18:00 Reason for exam:->ETT, chest tubesShould this [...] Signed: Tomasa Luqueeport Verified Date/Time: 03/27/2019 06:18:48 [id number] 06:00:00 Test Item Value Reference Range Interpretation Comments PARTIAL THROMBOPLASTIN TIME 82.3 seconds 22.5-36.0 H (BEAKER) (test code = 760) BASIC METABOLIC [id number] 05:35:00 Test Item Value Reference Range Interpretation [...] S NOT APPLICABLE FOR DIALYSIS PATIEN TS. Platform Material Handler Manager ID - ELISSA MSpecimen slightly [id number] 05:33:00 Test Item Value Reference Range Interpretation Comments PHOSPHORUS (BEAKER) (test code = 4.7 mg/dL 2.3-4.7 604) Platform Material Handler Manager ID - ELISSA [id number] 05:33:00 Test Item Value Reference Range Interpretation Comments MAGNESIUM (BEAKER) (test code = 2.2 mg/dL 1.6-2.6 627) Platform Material Handler Manager ID - ELISSA MCBC W/PLT COUNT & AUTO [id number] 05:19:00 Test Item Value Reference Range Interpretation [...] PERCENT (BEAKER) (test code = 2801) POCT-GLUCOSE [id number] 05:17:00 Test Item Value Reference Range Interpretation Comments POC-GLUCOSE METER 118 mg/dL 70-110 H : TESTED A T [facility] 6720 (BEAKER) (test code = [employer] [facility], 153) [address]: Platform Material Handler Manager/Techni aaron ID = [id number] for NEDA GARLAND [id number] 20:41:00 Test Item Value Reference Range Interpretation Comments PARTIAL THROMBOPLASTIN TIME 36.4 seconds 22.5-36.0 H (BEAKER) (test code = 760) Glucose Pleural [id number] 19:27:00 Test Item Value Reference Range Interpretation Comments Glucose, 29 mg/dL SAMPLE SLIGHTLY Pleural Fluid LIPEMIC.SAMPLE (test code = MODERATELY 2346-5) HEMOLYZED. Refe rence range approxima abundio that found in s joseph. DORI (test code Performing Lab = DORI) EZ [facility] [address] [place] [address] Alia Luna MD, PhD, SOTO [facility] HospitalPOCT-GLUCOSE [id number] 18:31:00 Test Item Value Reference Range Interpretation Comments POC-GLUCOSE METER 97 mg/dL 70-110 : TESTED A T [facility] 6720 (BEAKER) (test code = [employer] [facility], 1538) 7[address]: Platform Material Handler Manager/Techni aaron ID = [id number] for SAND ERS, ISABELA BASIC METABOLIC [id number] 18:22:00 Test Item Value Reference Range Interpretation [...] S NOT APPLICABLE FOR DIALYSIS PATIEN TS. Platform Material Handler Manager ID - BSSpecimen slightly ictericUrine [id number] 14:01:00 Test Item Value Reference Range Interpretation Comments Result (test code = 6463-4) No growth [id number] 13:23:00 Test Item Value Reference Range Interpretation Comments PARTIAL THROMBOPLASTIN TIME 40.6 seconds 22.5-36.0 H (BEAKER) (test code = 760) POCT-GLUCOSE [id number] 12:06:00 Test Item Value Reference Range Interpretation Comments POC-GLUCOSE METER 113 mg/dL 70-110 H : TESTED A T [facility] 6720 (BEAKER) (test code = [place], 1538) [address]: Platform Material Handler Manager/Techni aaron ID = [id number] for SA NDERS, ISABELA [id number] 10:59:00 Test Item Value Reference Range Interpretation Comments PARTIAL THROMBOPLASTIN TIME 61.4 seconds 22.5-36.0 H (BEAKER) (test code = 760) 2D Echo W/Doppler(CW/PW/Color)2019-03-26 08:34:44Ejection FractionSLEH ECHO HEARTLAB MKCKESSON CPACSInterface, External Ris In - 03/26/2019 8:35 AM C STTransthoracic Echocardiography Report (TTE) Demographics Patient Name JOHN DELUNA Date of Study 03/25/2019 Gender Male Visit Number [id number] Race Unknown Room Number 7102 Number Date of 1955 Referring Physician Jerald Christensen Age 63 year(s) Bar Examiner Abimael Jimenez Interpreting Carlos Alberto Estrada MD [...] l/min LVOT CI: 2.95 l/min/m^2 Tricuspid ValveCHI Kindred HospitalCT-GLUCOSE METER 2019-03-26 06:53:00 Test Item Value Reference Range Interpretation Comments POC-GLUCOSE METER 112 mg/dL 70-110 H : TESTED A T [facility] 6720 ([facility] [place] (test code = [place], 1538) [address]: Platform Material Handler Manager/Techni aaron ID = [id number] for MO LC FAUSTO RAD, CHEST, 1 VIEW, NON [id number] 05:01:00Reason for exam:->intubated w/ empyemaShould this be [...] Signed: Nakia Goldstein MDReportVerified Date/Time: 03/26/2019 05:01:34 [id number] 03:48:00 Test Item Value Reference Range Interpretation Comments PHOSPHORUS (BEAKER) (test code = 3.9 mg/dL 2.3-4.7 604) Platform Material Handler Manager ANGELI BOWERS [id number] 03:48:00 Test Item Value Reference Range Interpretation Comments MAGNESIUM (BEAKER) (test code = 2.1 mg/dL 1.6-2.6 627) Platform Material Handler Manager ANGELI BOWERS MBASIC METABOLIC [id number] 03:48:00 Test Item Value Reference Range Interpretation [...] S NOT APPLICABLE FOR DIALYSIS PATIEN TS. Platform Material Handler Manager ANGELI BOWERS MSpecimen slightly [id number] 03:23:00 Test Item Value Reference Range Interpretation Comments PARTIAL THROMBOPLASTIN TIME 98.7 seconds 22.5-36.0 H (BEAKER) (test code = 760) BLOOD GAS, [id number] 03:22:00 Test Item Value Reference Range Interpretation [...] 30.0 % CBC W/PLT COUNT & AUTO [id number] 03:14:00 Test Item Value Reference Range Interpretation [...] PERCENT (BEAKER) (test code = 2801) POCT-GLUCOSE [id number] 00:13:00 Test Item Value Reference Range Interpretation Comments POC-GLUCOSE METER 115 mg/dL 70-110 H : TESTED A T [facility] 6720 (BEAKER) (test code = [place], 1538) [address]: Platform Material Handler Manager/Techni aaron ID = [id number] for Al Barbara villafuerte BASIC METABOLIC [id number] 20:31:00 Test Item Value Reference Range Interpretation [...] S NOT APPLICABLE FOR DIALYSIS PATIEN TS. Platform Material Handler Manager ID - BSSpecimen slightly ictericTriglycerides, Pleural [id number] 18:39:00 Test Item Value Reference Range Interpretation Comments TRIGLYCERIDES, 35 mg/dL See Note: Reference PLEURAL FLUID Range:CHYLOUS: (test code = >110NONCHYLOUS: 9619-8) <50SAMPLE SLIGH TLY LIPEMIC.SAMPLE MODERATELY HEMOLYZED. DORI (test code = Performing Lab DORI) EZ [facility] [address] [place] [address] Alia Luna MD, PhD, SOTO [facility] HospitalCT, CHEST, WITHOUT [id number] 18:26:00FINAL REPORT CT of the Chest, abdomen [...] 18:26:29 Reading Location: [facility] B1 C013Y CT Body Reading Room CT, [id number] 18:26:00FINAL REPORT CT of the Chest, abdomen [...] MDReport Verified Date/Time: 03/25/2019 18:26:29 Reading Location: [facility] C013Y CT Body Reading Room CT abdomen/pelvis without iv [id number] 18:26:00Interface, External Ris In - 03/25/2019 6:29 [...] MDReport Verified Date/Time: 03/25/2019 18:26:29 Reading Location: [facility] C013Y CT Body Reading Room Electronically signed by: TOMASA FOSS M.D.on 03/25/2019 06:26 [facility] without IV [id number] 18:26:00Interface, External Ris In - 03/25/2019 6:29 [...] Ascending thoracic aortic aneurysm. Signed: Tomasa Foss [facility] HOSPITALeport Verified Date/Time: 03/25/2019 18:26:29 Reading Location: [facility] C013Y CT Body Reading Room Electronically signed by: TOMASA FOSS M.D.on 03/25/2019 06:26 [facility] CenterPO[facility]GLUCOSE [id number] 18:22:00 Test Item Value Reference Range Interpretation Comments POC-GLUCOSE METER 95 mg/dL 70-110 : TESTED A T [facility] 6720 (BEAKER) (test code = [place], 1538) [address]: Platform Material Handler Manager/Techni aaron ID = [id number] for ISABELA LE Lactate Dehydrogenase (LD), Pleural [id number] 18:06:00 Test Item Value Reference Interpretation Comments Range Lactate >1300 See Note: U/L Reference Dehydrogenase (LD), Range:TR ANSUDATE: Pleural Fluid (test <113EXUD ATE: code = 82737-5) >113SAMPLE S LIGHTLY LIPEMIC.SAMPLE MODERATELY HEMOLYZED.This fluid sample was rece ived hemolyzed in th e laboratory. Jeana n minimalhemolysi s causes signific ant increase in LD due to high levels of this enzymein red ce lls. Please interpre t result with caution.RESULTS CONFIRMED BY RE PEAT ANALYSIS. DORI (test code = Performing Lab DORI) EZ [facility] [address] [place] [address] I Jeremy CAMERON, PhD, SOTO [facility] HospitalRAD, CHEST, 1 VIEW, NON [id number] 16:20:00 Reason for exam:->Central Line PlacementShould this [...] tube is in place. Signed: Nato Dang [facility] Verified Date/Time: 03/25/2019 16:20:19 Reading Location: [facility] C[facility] Consult Reading Room [id number] 15:56:00 Test Item Value Reference Range Interpretation Comments PARTIAL THROMBOPLASTIN TIME 83.0 seconds 22.5-36.0 H (BEAKER) (test code = 760) BRONCHIAL CULTURE + GRAM [id number] 12:23:00 Test Item Value Reference Range Interpretation Comments CULTURE (BEAKER) See comment (test code = 1095) GRAM STAIN RESULT 4+ WBCs (BEAKER) (test code = 1123) GRAM STAIN RESULT <1+ yeast with (BEAKER) (test code pseudohyphae = 097840) 2+ Yeast with feetNo Normal respiratory rigo [...] S NOT APPLICABLE FOR DIALYSIS PATIEN TS. Platform Material Handler Manager ID - LENNY MBLOOD GAS, [id number] 12:00:00 Test Item Value Reference Range Interpretation [...] (test code = 1819) 30.0 % POCT-GLUCOSE [id number] 11:51:00 Test Item Value Reference Range Interpretation Comments POC-GLUCOSE METER 114 mg/dL 70-110 H : TESTED A T [facility] 6720 (BEAKER) (test code = [place], 1538) [address]: Platform Material Handler Manager/Techni aaron ID = [id number] for SA NDERS, ISABELA BODY FLUID CULTURE + GRAM [id number] 10:54:00 Test Item Value Reference Range Interpretation Comments CULTURE (BEAKER) (test code No growth = 1095) GRAM STAIN RESULT (BEAKER) 2+ WBCs (test code = 1123) GRAM STAIN RESULT (BEAKER) No organisms seen (test code = 07470) BODY FLUID CULTURE + GRAM [id number] 10:54:00 Test Item Value Reference Range Interpretation Comments CULTURE (BEAKER) (test code No growth = 1095) GRAM STAIN RESULT (BEAKER) 1+ WBCs (test code = 1123) GRAM STAIN RESULT (BEAKER) No organisms seen (test code = 21897) Urinalysis w/Microscopic + Reflex to [id number] 10:03:00 Test Item Value Reference Range Interpretation Comments Color, UA (test code = Yellow 5778-6) Clarity, UA (test code = Hazy 5767-9) Specific [place], UA (test 1.018 1.001-1.035 code = 5811-5) pH, UA (test code = 5.5 5.0-8.0 5803-2) Protein, UA (test code = 50 mg/dL Negative A 56231-5) Glucose, UA (test code = Negative Negative 365) Ketones, UA (test code = Negative Negative 2514-8) Bilirubin, UA (test code = Negative Negative 21370-0) Blood, UA (test code = Small Negative A 75946-2) Nitrite, UA (test code = Negative Negative 5802-4) Leukocytes, UA (test code Large Negative A = 5799-2) Urobilinogen, UA (test 6.0 mg/dL 0.2-1 H code = 62706-2) RBC, UA (test code = <1 /HPF 80476-3) WBC, UA (test code = 54 /HPF 5821-4) Bacteria, UA (test code = Few 84365-4) Mucus (test code = 8247-9) Few Squam Epithel, UA (test <1 /HPF code = 23418-7) Hyaline Casts, UA (test 1 /LPF code = 39568-9) Specimen Source (test code = 2795) DORI (test code = DORI) Platform Material Handler Manager ID - [auto]Platform Material Handler Manager ID - ramya Lab Interpretation (test Abnormal code = 95033-8) [facility] HospitalURINALYSIS W/ REFLEX URINE [id number] 10:03:00 Test Item Value Reference Range Interpretation [...] /LPF 514) SOURCE(BEAKER) (test code = 2795) Platform Material Handler Manager ID - [auto]Platform Material Handler Manager ID - [id number] 09:58:00 Test Item Value Reference Range Interpretation Comments PARTIAL THROMBOPLASTIN TIME 83.1 seconds 22.5-36.0 H (BEAKER) (test code = 760) BLOOD [id number] 07:00:00 Test Item Value Reference Range Interpretation Comments CULTURE (BEAKER) (test No growth in 5 days code = 1095) RAD, CHEST, 1 VIEW, NON [id number] 06:48:00Reason for exam:->intubated w/ empyemaShould this be [...] Luque MDReport Verified Date/Time: 03/25/2019 06:48:46 POCT-GLUCOSE [id number] 06:17:00 Test Item Value Reference Range Interpretation Comments POC-GLUCOSE METER 101 mg/dL 70-110 : [facility] ([facility]ER[facility] (test code [facility], = 1538) [address]: Platform Material Handler Manager/Techni aaron ID = [id number] for SUGU ANNMOL CBC W/PLT COUNT & AUTO [id number] 04:23:00 Test Item Value Reference Range Interpretation [...] % 0-1 PERCENT (BEAKER) (test code = 2800) BLOOD [id number] 04:02:00 Test Item Value Reference Range Interpretation Comments CULTURE (BEAKER) (test No growth in 5 days code = 1095) BASIC METABOLIC [id number] 03:59:00 Test Item Value Reference Range Interpretation [...] S NOT APPLICABLE FOR DIALYSIS PATIEN TS. Platform Material Handler Manager ID - ELISSA MSpecimen slightly [id number] 03:57:00 Test Item Value Reference Range Interpretation Comments PHOSPHORUS (BEAKER) (test code = 2.8 mg/dL 2.3-4.7 604) Platform Material Handler Manager ID - ELISSA [id number] 03:57:00 Test Item Value Reference Range Interpretation Comments MAGNESIUM (BEAKER) (test code = 2.0 mg/dL 1.6-2.6 627) Platform Material Handler Manager ID - ELISSA [id number] 03:30:00 Test Item Value Reference Range Interpretation Comments PARTIAL THROMBOPLASTIN TIME 63.6 seconds 22.5-36.0 H (BEAKER) (test code = 760) POCT-GLUCOSE [id number] 00:15:00 Test Item Value Reference Range Interpretation Comments POC-GLUCOSE METER 110 mg/dL 70-110 : TESTED A T [facility] 6720 (BEAKER) (test code [facility], = 1538) [address]: Platform Material Handler Manager/Techni aaron ID = [id number] for SUGU , SHEENAMOL [id number] 21:11:00 Test Item Value Reference Range Interpretation Comments PARTIAL THROMBOPLASTIN TIME 68.8 seconds 22.5-36.0 H (BEAKER) (test code = 760) BASIC METABOLIC [id number] 21:09:00 Test Item Value Reference Range Interpretation [...] S NOT APPLICABLE FOR DIALYSIS PATIEN TS. Platform Material Handler Manager ID - JOSE Castellano slightly ictericRAD, ABDOMEN/KUB, 1 VIEW AP 2019-03-24 19:29:00Reason for exam:->NGT fell outAddendum BeginsREPORT STATUS:A Two views were obtained. Signed: Edwin Salazar MDReport Verified Date/Time: 03/24/2019 19:29:02 Reading Location: [address] Consult Reading RoomAddendum EndsFINAL REPORT Abdomen. HISTORY: Nasogastric tube fell out. COMPARISON STUDY: None available FINDINGS: A single supine view the abdomen demonstrates a nasogastric tube in place, the tip projecting over the distal stomach. No dilated loops of bowel are seen. Degenerative changes are noted. This film is insensitive for the detection of free air. Signed: Edwin Salazareport Verified Date/Time: 03/24/2019 19:24:17 Reading Location: [address] Consult Reading Room POCT- GLUCOSE [id number] 18:19:00 Test Item Value Reference Range Interpretation Comments POC-GLUCOSE METER 97 mg/dL 70-110 : TESTED A T [facility] 6720 (BEAKER) (test code = ILDA [place] [facility], 1538) [address]: Platform Material Handler Manager/Techni aaron ID = [id number] for SAND ERS, ISABELA RAD, CHEST, 1 VIEW, NON [id number] 18:11:00Reason for exam:->Chest tube placement, possible dislodgementShould [...] MDReport Verified Date/Time: 03/24/2019 18:11:57 Reading Location: [address] Consult Reading Room BODY FLUID CULTURE + GRAM [id number] 16:09:00 Test Item Value Reference Range Interpretation Comments CULTURE (BEAKER) (test No growth code = 1095) GRAM STAIN RESULT 1+ White blood cells (BEAKER) (test code = seen 1123) GRAM STAIN RESULT No organisms seen (BEAKER) (test code = 01610) BRONCHIAL CULTURE + GRAM [id number] 14:05:00 Test Item Value Reference Range Interpretation Comments CULTURE (BEAKER) (test code No growth = 1095) GRAM STAIN RESULT (BEAKER) <1+ WBCs (test code = 1123) GRAM STAIN RESULT (BEAKER) No organisms seen (test code = 14149) BASIC METABOLIC [id number] 13:09:00 Test Item Value Reference Range Interpretation [...] 8.4-10.2 L (test code = 697) EGFR (YELITZA) (test 50 mL/min/1.73 ESTIMA ARLENE GFR IS code = 1092) sq m NOT ACCURATE CREATININE CLEARANCE IN PREDICTING GLOMERULAR FILTRATION RATE . ESTIMATED GFR I S NOT APPLICABLE FOR DIALYSIS PATIEN Platform Material Handler Manager ID - SONIA [id number] 13:04:00 Test Item Value Reference Range Interpretation Comments PARTIAL THROMBOPLASTIN TIME 58.9 seconds 22.5-36.0 H (YELITZA) (test code = 760) EEG EXTENDED MONITORING, 40-60 [id number] 12:32:00For STAT EEG- after 5 PM weekdays, weekends and holidays, page the on-call EEG TechReason for exam:-& gt;Concern for Subclinical StatusShould this be performed at the bedside?->YesDate(s) of EE03/24/2019 DATE OF REPORT: 03/24/2019ACC: [id number] Number: [id number] Location: Inpatient ICUStart time: 03/24/2019 10:42Stop time: 03/24/2019 11:23ICD-10: R56.9 CPT Code: 08988 HISTORY: 63 y.o. male with hypertension, diastolic heart failure, chronic kidney disease who was transferred to [facility] for effusions and remains altered [...] inflammation, aftermath of earlier seizure activity, other FIRER BISQUE KILN insult, or toxic-metabolic derangements. An EEG without epileptiform discharges does not exclude the possibility of epilepsy. If the clinical suspicion of epilepsy remains, consider additional EEG recordings. Nando Metz MDNeurophysiology Fellow Taya Martinez M.D., FACDEB, FAAN, FAESProfessor of Neurology, [facility] SouthwoodsDirector, [facility] Epile[facility] CenterSelect [facility] at [place], [place] EXTENDED MONITORING 40 - 60 [id number] 12:32:00Interface, External Ris In - 03/24/2019 12:32 PM CSTDate(s) of EE03/24/2019 DATE OF REPORT: 03/24/2019ACC: [id number] Number: [id number] Location: Inpatient ICUStart time: 03/24/2019 10:42Stoptime: 03/24/2019 11:23ICD-10: R56.9 CPT Code: 98443 HISTORY: 63 y.o. male with hypertension, diastolic heart failure, chronic kidney disease who was transferred to [facility] for effusions and remains altered [...] inflammation, aftermath of earlier seizure activity, other FIRER BISQUE KILN insult, or toxic-metabolic derangements. An EEG without epileptiform discharges does not exclude the possibility of epilepsy. If the clinical suspicion of epilepsy remains, consider additional EEG recordings. Nando Metz MDNeurophysiology Fellow Taya Martinez M.D., FACDEB, FAAN, FAESProfessor of Neurology, [facility] College of MedicineDirector, [facility] Comprehensive Epilepsy CenterSelect [facility] at [place], [place] [facility] HospitalPOCT-GLUCOSE [id number] 12:29:00 Test Item Value Reference Range Interpretation Comments POC-GLUCOSE METER 109 mg/dL 70-110 : TESTED A T [facility] 6720 (BEAKER) (test code = DOROTAJAVI Calvert [facility], 1538) [address]: Platform Material Handler Manager/Techni aaron ID = [id number] for [address] BLOOD GAS, [id number] 12:11:00 Test Item Value Reference Range Interpretation [...] (test code = 1819) 30.0 % POCT-GLUCOSE [id number] 06:09:00 Test Item Value Reference Range Interpretation Comments POC-GLUCOSE METER 122 mg/dL 70-110 H : [facility] (BEAKER) (test code = ILDA [place], 1538) [address]: Platform Material Handler Manager/Techni aaron ID = [id number] for EDISON BELTRAN BLOOD GAS, [id number] 05:35:00 Test Item Value Reference Range Interpretation [...] (BEAKER) (test code = 1819) 30.0 % [id number] 05:09:00 Test Item Value Reference Range Interpretation Comments PHOSPHORUS (BEAKER) (test code = 3.2 mg/dL 2.3-4.7 604) Platform Material Handler Manager ID - SANDRA [id number] 05:09:00 Test Item Value Reference Range Interpretation Comments MAGNESIUM (BEAKER) (test code = 1.9 mg/dL 1.6-2.6 627) Platform Material Handler Manager ID - SANDRA WBASIC METABOLIC [id number] 05:09:00 Test Item Value Reference Range Interpretation [...] S NOT APPLICABLE FOR DIALYSIS PATIEN TS. Platform Material Handler Manager ID - SANDRA WSpecimen slightly [id number] 04:59:00 Test Item Value Reference Range Interpretation Comments PARTIAL THROMBOPLASTIN TIME 61.1 seconds 22.5-36.0 H (BEAKER) (test code = 760) CBC W/PLT COUNT & AUTO [id number] 04:52:00 Test Item Value Reference Range Interpretation [...] = 2801) RAD, CHEST, 1 VIEW, NON [id number] 03:57:00Reason for exam:->intubated w/ empyemaShould this be performed at the bedside?->YesFINAL REPORT RAD, CHEST, 1 VIEW, NON DEPT INDICATION: intubated w/ empyema COM PARISON: Prior day's exam FINDINGS: Portable frontal view of the chest. IMPRESSION: Support Lines: Stable. Lungs and pleura: Unchanged airspace and pleural opacities given variation in positioning. No pneumothorax.Heart and mediastinum: Stable contours. Additional findings: None. Signed: Tomasa Luqueeport Verified Date/Time: 03/24/2019 03:57:49 VANCOMYCIN LEVEL, [id number] 01:53:00 Test Item Value Reference Range Interpretation Comments VANCOMYCIN TROUGH (BEAKER) (test 17.9 ug/mL 10.0-20.0 code = 522) Platform Material Handler Manager ID - SANDRA CORTES, BRAIN, WITHOUT [id number] 01:31:00FINAL REPORT EXAM: CT head without contrast. [...] Goldstein MDReport Verified Date/Time: 03/24/2019 01:31:09 POCT-GLUCOSE [id number] 00:17:00 Test Item Value Reference Range Interpretation Comments POC-GLUCOSE METER 122 mg/dL 70-110 H : TESTED A T [facility] 6720 (BEAKER) (test code = DOROTAJAVI [place], 1538) [address]: Platform Material Handler Manager/Techni aaron ID = [id number] for EDISON BELTRAN BASIC METABOLIC [id number] 21:04:00 Test Item Value Reference Range Interpretation [...] S NOT APPLICABLE FOR DIALYSIS PATIEN TS. Platform Material Handler Manager ID - Nicholas karine ictericBASIC METABOLIC [id number] 16:30:00 Test Item Value Reference Range Interpretation [...] S NOT APPLICABLE FOR DIALYSIS PATIEN TS. Platform Material Handler Manager ID - ALMA WHEPATIC FUNCTION [id number] 16:22:00 Test Item Value Reference Range Interpretation [...] (test code = 7 U/L 6-55 347) Platform Material Handler Manager ID - ALMA [id number] 16:05:00 Test Item Value Reference Range Interpretation Comments AMMONIA (BEAKER) (test code = 348) 29 mol/L 18-72 Platform Material Handler Manager ID - ALMA WMRSA [id number] 11:27:00 Test Item Value Reference Range Interpretation Comments CULTURE (BEAKER) (test code No MRSA isolated = 1095) Manual [id number] 10:18:00 Test Item Value Reference Range Interpretation [...] Ovalocytes (test code = 1+ few 477) Alexander Cells (test code = 1+ few 474) Artifact (test code = Present 3432) Platelet Conc (test code Adequate = 3438) DORI (test code = DORI) Platform Material Handler Manager ID - Mariela OverholtUser comments: Slide comments: Lab Interpretation (test Abnormal code = 94667-4) [facility] W/PLT COUNT & AUTO [id number] 10:18:00 Test Item Value Reference Range Interpretation [...] CONCENTRATION Adequate (CELLAVISION)(BEAKER) (test code = 3438) Platform Material Handler Manager ID - Mariela OverholtUser comments: Slide comments:SPIN/CONCENTRATION [id number] 10:03:00 Test Item Value Reference Range Interpretation Comments CONCENTRATION CHARGED (BEAKER) (test Done code = 2657) SPIN/CONCENTRATION [id number] 10:03:00 Test Item Value Reference Range Interpretation Comments CONCENTRATION CHARGED (BEAKER) (test Done code = 2657) SPIN/CONCENTRATION [id number] 10:03:00 Test Item Value Reference Range Interpretation Comments CONCENTRATION CHARGED (BEAKER) (test Done code = 2657) [id number] 07:00:00 Test Item Value Reference Range Interpretation Comments PARTIAL THROMBOPLASTIN TIME 70.1 seconds 22.5-36.0 H (BEAKER) (test code = 760) [id number] 06:46:00 Test Item Value Reference Range Interpretation Comments PHOSPHORUS (BEAKER) (test code = 2.8 mg/dL 2.3-4.7 604) Platform Material Handler Manager ID - SANDRA [id number] 06:46:00 Test Item Value Reference Range Interpretation Comments MAGNESIUM (BEAKER) (test code = 1.9 mg/dL 1.6-2.6 627) Platform Material Handler Manager ID Sultana FLORES WBASIC METABOLIC [id number] 06:46:00 Test Item Value Reference Range Interpretation [...] S NOT APPLICABLE FOR DIALYSIS PATIEN TS. Platform Material Handler Manager ID Sultana FLORES WSpecimen slightly ictericBLOOD GAS, [id number] 06:18:00 Test Item Value Reference Range Interpretation [...] (test code = 1819) 30.0 % POCT-GLUCOSE [id number] 05:36:00 Test Item Value Reference Range Interpretation Comments POC-GLUCOSE METER 122 mg/dL 70-110 H : TESTED A T [facility] 6720 (BEAKER) (test code = [facility] Enrike [facility], 1538) [address]: Platform Material Handler Manager/Techni aaron ID = [id number] for EDISON BELTRAN [id number] 00:47:00 Test Item Value Reference Range Interpretation Comments PARTIAL THROMBOPLASTIN TIME 62.9 seconds 22.5-36.0 H (BEAKER) (test code = 760) POCT-GLUCOSE [id number] 00:39:00 Test Item Value Reference Range Interpretation Comments POC-GLUCOSE METER 131 mg/dL 70-110 H : TESTED A T [facility] 6720 (BEAKER) (test code = [facility] Enrike [facility], 1538) [address]: Platform Material Handler Manager/Techni aaron ID = [id number] for EDISON BELTRAN BASIC METABOLIC [id number] 20:51:00 Test Item Value Reference Range Interpretation [...] S NOT APPLICABLE FOR DIALYSIS PATIEN TS. Platform Material Handler Manager ID - ELISSA MSpecimen slightly ictericPT/[id number] 17:40:00 Test Item Value Reference Range Interpretation [...] mechanical heart valves.BODY FLUID CELL COUNT WITH [id number] 17:31:00 Test Item Value Reference Range Interpretation Comments APPEARANCE FLUID (BEAKER) (test Bloody Clear A code = 510) COLOR FLUID (BEAKER) (test code Red Colorless, Straw A = 511) RBC FLUID (BEAKER) (test code = 53380 /cu mm <=1 H 513) ADJUSTED WBC [...] = 2873) Body fluid cell count with [id number] 17:22:00 Test Item Value Reference Range Interpretation Comments Appearance (test code = 9335-1) Bloody Clear A Color (test code = 6824-7) Red Colorless, Straw A RBCs (test code = 91919-5) 80730 <=1 /cu mm H Adjusted WBC Count (test code = 14306 <=5 /cu mm H 83572-3) Lining Cells (test code = 75057-4) 364 <=1 /cu mm H % Segs (test code = 12756-0) 85 % % Lymphs (test code = 97277-7) 4 % % Monos (test code = 63848-5) 10 % % Eos (test code = 61250-1) 1 % % Baso (test code = 60508-6) 0 % Container Body Fluid (test code = EDTA Tube 2873) Lab Interpretation (test code = Abnormal 37635-5) [facility] HospitalBODY FLUID CELL COUNT WITH [id number] 17:22:00 Test Item Value Reference Range Interpretation Comments APPEARANCE FLUID (BEAKER) (test Bloody Clear A code = 510) COLOR FLUID (BEAKER) (test code Red Colorless, Straw A = 511) RBC FLUID (BEAKER) (test code = 36947 /cu mm <=1 H 513) ADJUSTED WBC FLUID (BEAKER) 72369 /cu mm <=5 H (test code = [...] code = 2873) SPUTUM CULTURE + GRAM [id number] 13:08:00 Test Item Value Reference Range Interpretation Comments CULTURE (BEAKER) (test See comment code = 1095) GRAM STAIN RESULT 2+ WBCs (BEAKER) (test code = 1123) GRAM STAIN RESULT 0-5 epithelial cells (BEAKER) (test code = 292701) GRAM STAIN RESULT No organisms seen (BEAKER) (test code = 938972) <1+ YeastNo Normal respiratory rigo presentBASIC METABOLIC [id number] 10:04:00 Test Item Value Reference Range Interpretation [...] S NOT APPLICABLE FOR DIALYSIS PATIEN TS. Platform Material Handler Manager ID - ELISSA MSpecimen slightly [id number] 10:02:00 Test Item Value Reference Range Interpretation Comments PARTIAL THROMBOPLASTIN TIME 35.5 seconds 22.5-36.0 (BEAKER) (test code = 760) 6 hours after starting heparin infusion and as indicated per sliding scaleRAD, CHEST, 1 VIEW, NON [id number] 09:09:00Reason for exam:->intubated, bilateral chest tubesShould this [...] [place]port Verified Date/Time: 03/22/2019 09:09:11 Reading Location: [address] Consult Reading Room POCT-GLUCOSE [id number] 06:06:00 Test Item Value Reference Range Interpretation Comments POC-GLUCOSE METER 105 mg/dL 70-110 : TESTED A T [facility] 6720 (YELITZA) (test code = ILDA Calvert [place], 1538) [address]: Platform Material Handler Manager/Techni aaron ID = [id number] for DA VIS, EDISON VANCOMYCIN LEVEL, [id number] 02:59:00 Test Item Value Reference Range Interpretation Comments VANCOMYCIN TROUGH (BEAKER) (test 15.2 ug/mL 10.0-20.0 code = 522) Platform Material Handler Manager ID - JOSE [id number] 02:42:00 Test Item Value Reference Range Interpretation Comments PHOSPHORUS (BEAKER) (test code = 3.8 mg/dL 2.3-4.7 604) Platform Material Handler Manager ID - JOSE [id number] 02:42:00 Test Item Value Reference Range Interpretation Comments MAGNESIUM (BEAKER) (test code = 2.0 mg/dL 1.6-2.6 627) Platform Material Handler Manager ID - JOSE EBASIC METABOLIC [id number] 02:42:00 Test Item Value Reference Range Interpretation [...] S NOT APPLICABLE FOR DIALYSIS PATIEN TS. Platform Material Handler Manager ID - JOSE ESpecimen slightly ictericCBC W/PLT COUNT & AUTO [id number] 02:27:00 Test Item Value Reference Range Interpretation [...] PERCENT (BEAKER) (test code = 2801) POCT-GLUCOSE [id number] 00:42:00 Test Item Value Reference Range Interpretation Comments POC-GLUCOSE METER 95 mg/dL 70-110 : TESTED A T [facility] 6720 (BEAKER) (test code = ILDA Calvert [facility], 1538) [address]42: Platform Material Handler Manager/Techni aaron ID = [id number] for EDISON CALDWELL BASIC METABOLIC [id number] 22:23:00 Test Item Value Reference Range Interpretation [...] S NOT APPLICABLE FOR DIALYSIS PATIEN TS. Platform Material Handler Manager ID - BSSpecimen slightly ictericBODY FLUID CELL COUNT WITH DIFFERENTIAL 2019-03-21 20:29:00 Test Item Value Reference Range Interpretation Comments APPEARANCE FLUID (BEAKER) (test Hazy Clear A code = 510) COLOR FLUID (BEAKER) (test code Kierra Colorless, Straw A = 511) RBC FLUID (BEAKER) (test code = 24567 /cu mm <=1 H 513) ADJUSTED WBC [...] = 2873) U/S, DRAINAGE, CHEST, WITH TUBE [id number] 19:48:00Please place a 3-way stopcock on the [...] loss: < 5 cc. Specimen: Left bedside. charter boat operator: Nato Dang MD. Drying Tumbler Operator: None. Technique: Informed written consent was [...] space. Under direct ultrasound guidance an 8 Bel[place]an skater pigtail drain was advanced into the [...] the patient's left chest and an 8 [place] skater pigtail drain was placed in a similar fashion and connected to the atrium pleura. The patient tolerated the procedure well without evidence of immediate competition. Impression: Te chnically successful and uncomplicated placement of bilateral pigtail chest tubes under ultrasound guidance. Signed: Nato Dang MDReport Verified Date/Time: 03/21/2019 19:48:47 Reading Location: [facility] P048 Angio Body Reading Room US drainage chest with tube [id number] 19:48:00 Interface, External Ris In - 03/21/2019 7:50 PM CSTFINAL REPORT Ultrasound guided insertion of bilateral pigtail chest tube catheters. History: Bilateral loculated pleural effusions. Modality: Ultrasound Sedation: None Anesthesia: Two percent Lidocaine without epinephrine. Approach: Bilateral mid axillary line Estimated blood loss: < 5 cc. Specimen: Left bedside. charter boat operator: Nato Dang MD. Drying Tumbler Operator: None. Technique: Informed written consent was [...] space. Under direct ultrasound guidance an 8 [place] skater pigtail drain was advanced into the [...] the patient's left chest and an 8 [place] skater pigtail drain was placed in a similar fashion and connected to the atrium pleura. The patient tolerated the procedure well without evidence of immediate competition. Impression: Technically successful and uncomplicated placementof bilateral pigtail chest tubes under ultrasound guidance. Signed: Rissa Dang en MDReport Verified Date/Time: 03/21/2019 19:48:47 Reading Location: [facility] P048 Angio Body Reading Room [facility] 2019-03-21 12:39:00 Test Item Value Reference Range Interpretation Comments Human Metapneumovirus Not detected Not detected, (test code = 72754-4) Equivocal Rhinovirus (test code = Not detected Not detected, 34691-4) Equivocal INFLUENZA A (NO Not detected Not detected, SUBTYPE) (test code = Equivocal 90488-7) Influenza A subtype H1 (test code = 31033-8) Influenza A Subtype H3 (test code = 88509-4) Influenza A Subtype H1-2009 (test code = 27336-5) Influenza B (test code Not detected Not detected, = 99385-5) Equivocal Respiratory Syncytial Not detected Not detected, Virus (test code = Equivocal 53923-9) Parainfluenza Virus 1 Not detected Not detected, (test code = 81478-3) Equivocal Parainfluenza Virus 2 Not detected Not detected, (test code = 58348-8) Equivocal Parainfluenza virus 3 Not detected Not detected, (test code = 98363-3) Equivocal Parainfluenza Virus 4 Not detected Not detected, (test code = 68418-7) Equivocal Adenovirus (test code = Not detected Not detected, 97286-9) Equivocal Coronavirus 229E (test Not detected Not detected, code = 21121-1) Equivocal Coronavirus HKU1 (test Not detected Not detected, code = 46406-0) Equivocal Coronavirus NL63 (test Not detected Not detected, code = 84642-4) Equivocal Coronavirus OC43 (test Not detected Not detected, code = 96553-1) Equivocal Bordetella Pertussis Not detected Not detected, (test code = 99968-3) Equivocal Chlamydophila Not detected Not detected, Pneumoniae (test code = Equivocal 66873-8) Mycoplasma Pneumoniae Not detected Not detected, (test code = 79393-9) Equivocal DORI (test code = DORI) Other viruses and bacteria not targeted by this PCR panel cannot be excluded; therefore clinical correlation and follow up of serology, culture results, and other molecular studies is required. The results are not intended to be used as the sole means for clinical diagnosis or patient management decisions. This sample was tested at the [facility] Molecular Diagnostics Laboratory using the ReviverMx Respiratory Panel. It is FDA cleared and has been verified and approved by the [facility] Molecular Diagnostics Laboratory for clinical use on nasopharyngeal swab specimens. The performance of the TempMineArray RP has not been established in individuals who received influenza vaccine. Recent administration of a nasal influenza vaccine may cause false positive results for Influenza A and/orInfluenza B. [facility] [id number] 12:39:00 Test Item Value Reference Range Interpretation [...] sample was tested at the [facility] Molecular Diagnostics Laboratory using the MVious XoticsArray Respiratory Panel. It is FDA cleared and has been verified and approved by the [facility] Molecular Diagnostics Laboratory for clinical use on nasopharyngeal swab specimens.The performance of the FilmArrayRP has not been established in individuals who received influenza vaccine. Recent administration ofa nasal influenza vaccine may cause false positive results for Influenza A and/orInfluenza B.Vitamin B12 and [id number] 10:20:00 Test Item Value Reference Range Interpretation Comments Vitamin B12 (test code = >2000 213-816 H 2132-9) Folate (test code = 17.3 ng/mL >=7.0 2284-8) DORI (test code = DORI) Platform Material Handler Manager ID - ELISSA M Lab Interpretation (test Abnormal code = 12487-4) [facility] HospitalVITAMIN B12 AND [id number] 10:20:00 Test Item Value Reference Range Interpretation Comments VITAMIN B12 (BEAKER) (test code = > pg/mL 213-816 H 774) FOLATE (BEAKER) (test code = 362) 17.3 ng/mL >=7.0 Platform Material Handler Manager ID - ELISSA [id number] 10:16:00 Test Item Value Reference Range Interpretation Comments Ferritin (test code = 1076 ng/mL 5-275 H 2276-4) DORI (test code = DORI) Platform Material Handler Manager ID - ELISSA M Lab Interpretation (test Abnormal code = 75470-9) [facility] HospitalFERRITIN2020-01-24 10:16:00 Test Item Value Reference Range Interpretation Comments FERRITIN (BEAKER) (test code = 1076 ng/mL 5-275 H 361) Platform Material Handler Manager ID - ELISSA MLactate dehydrogenase (LDH)2019-03-21 09:41:00 Test Item Value Reference Range Interpretation Comments LDH (test code = 2532-0) 300 U/L 125-220 H DORI (test code = DORI) Platform Material Handler Manager ID - ELISSA M Lab Interpretation (test Abnormal code = 29729-8) [facility] HospitalMAGNESIUM2020-01-24 09:41:00 Test Item Value Reference Range Interpretation Comments MAGNESIUM (BEAKER) (test code = 2.0 mg/dL 1.6-2.6 627) Platform Material Handler Manager ANGELI BOWERS MBASIC METABOLIC [id number] 09:41:00 Test Item Value Reference Range Interpretation [...] S NOT APPLICABLE FOR DIALYSIS PATIEN TS. Platform Material Handler Manager ANGELI HILLA MSpecimen slightly ictericLACTATE DEHYDROGENASE (LDH) 2019-03-21 09:41:00 Test Item Value Reference Range Interpretation Comments LACTATE DEHYDROGENASE (BEAKER) (test 300 U/L 125-220 H code = 635) Platform Material Handler Manager ANGELI BOWERS Odin, TIBC, % sat. (without ferritin)2019-03-21 09:39:00 Test Item Value Reference Range Interpretation Comments Iron (test code = 2498-4) 39.0 ug/dL 40-160 L TIBC (test code = 2500-7) 113 ug/dL 250-450 L Iron % Saturation (test 35 % 20-55 code = 2502-3) DORI (test code = DORI) Platform Material Handler Manager ANGELI Loomis Lab Interpretation (test Abnormal code = 23391-9) [facility] HospitalIRON, TIBC, % SAT. (WITHOUT FERRITIN)2019-03-21 09:39:00 Test Item Value Reference Range Interpretation Comments IRON (BEAKER) (test code = 547) 39.0 ug/dL 40.0-160.0 L TOTAL IRON BINDING CAPACITY 113 ug/dL 250-450 L (BEAKER) (test code = 769) IRON % SATURATION (2) (BEAKER) 35 % 20-55 (test code = 2590) Platform Material Handler Manager ID - ELISSA MRapid Influenza A&B [id number] 09:34:00 Test Item Value Reference Range Interpretation Comments Rapid Influenza A Antigen Negative Negative, Inconclusive (test code = 60212-4) Rapid influenza B Antigen Negative Negative, Inconclusive (test code = 97294-0) Lab Interpretation (test code Normal = 51530-7) [facility] HospitalRAPID INFLUENZA A&B [id number] 09:34:00 Test Item Value Reference Range Interpretation Comments RAPID INFLUENZA A AG (BEAKER) Negative Negative, Inconclusive (test code = 1622) RAPID INFLUENZA B AG (BEAKER) Negative Negative, Inconclusive (test code = 1623) Reticulocyte [id number] 09:20:00 Test Item Value Reference Range Interpretation Comments % Retic (test code = 1.9 % 0.5-1.8 H 71624-6) DORI (test code = DORI) Platform Material Handler Manager ID - [id number] Lab Interpretation (test Abnormal code = 71522-9) [facility] HospitalRETICULOCYTE [id number] 09:20:00 Test Item Value Reference Range Interpretation Comments RETICULOCYTE COUNT PCT (BEAKER) (test 1.9 % 0.5-1.8 H code = 575) Platform Material Handler Manager ID - [id number] W/PLT COUNT & AUTO [id number] 08:50:00 Test Item Value Reference Range Interpretation [...] CONCENTRATION Adequate (CELLAVISION)(BEAKER) (test code = 3438) Platform Material Handler Manager ID - Mariela OverholtUser comments: Slide comments:POCT-GLUCOSE METER 2019-03-21 05:45:00 Test Item Value Reference Range Interpretation Comments POC-GLUCOSE METER 89 mg/dL 70-110 : TESTED A T [facility] 6720 (BEAKER) (test code = ILDA Calvert [facility], 1538) [address]: Platform Material Handler Manager/Techni aaron ID = [id number] for OLENA S EDISON U/S, ABDOMINAL, [id number] 05:36:00Abdomen limited area? Add comment if clarification [...] Luque MD Report Verified Date/Time: 03/21/2019 05:36:04 [id number] 03:16:00 Test Item Value Reference Range Interpretation Comments MAGNESIUM (BEAKER) 2.1 mg/dL 1.6-2.6 Specimen slightly (test code = 627) hemolyzed Platform Material Handler Manager ID - ELISSA [id number] 03:16:00 Test Item Value Reference Range Interpretation Comments PHOSPHORUS (BEAKER) 4.4 mg/dL 2.3-4.7 Specimen slightly (test code = 604) hemolyzed Platform Material Handler Manager ID - ELISSA [id number] 02:32:00 Test Item Value Reference Range Interpretation Comments MAGNESIUM (BEAKER) 2.1 mg/dL 1.6-2.6 Specimen slightly (test code = 627) hemolyzed Platform Material Handler Manager ID - ALEM BBASIC METABOLIC [id number] 01:30:00 Test Item Value Reference Range Interpretation [...] S NOT APPLICABLE FOR DIALYSIS PATIEN TS. Platform Material Handler Manager ID - ALEM BSpecimen slightly ictericPOCT-GLUCOSE [id number] 23:58:00 Test Item Value Reference Range Interpretation Comments POC-GLUCOSE METER 114 mg/dL 70-110 H : TESTED A T [facility] 6720 (BEAKER) (test code = ILDA [place], 1538) [address]: Platform Material Handler Manager/Techni aaron ID = [id number] for EDISON BELTRAN [id number] 20:21:00 Test Item Value Reference Range Interpretation Comments MAGNESIUM (BEAKER) (test code = 2.1 mg/dL 1.6-2.6 627) Platform Material Handler Manager ID - ALEM BPOCT-GLUCOSE [id number] 18:23:00 Test Item Value Reference Range Interpretation Comments POC-GLUCOSE METER 98 mg/dL 70-110 : TESTED A T [facility] 6720 (BEAKER) (test code = ILDA Calvert [place], 1538) [address]: Platform Material Handler Manager/Techni aaron ID = [id number] for ISABELA LE BASIC METABOLIC [id number] 17:43:00 Test Item Value Reference Range Interpretation [...] S NOT APPLICABLE FOR DIALYSIS PATIEN TS. Platform Material Handler Manager ID - AAHAMIDSpecimen slightly ictericBLOOD GAS, [id number] 16:45:00 Test Item Value Reference Range Interpretation [...] of Study 03/20/2019 Gender Male Visit Number [id number] Race Unknown Room Number 7102 Number Date of 1955 Referring Physician Age 63 year(s) Bar Examiner Gabrielle Gusman [facility] Interpreting Ziyad Bentley MD Physician Procedure [...] but severity assessmentis unreliable . Aortic Valve Nitp-mm-vribsnev AoV cusp calcification. Mild aortic stenosis. AoV [...] LVOT CO: 7.28 l/min LVOT CI: 3.5 l/min/m^2CS[facility] HospitalCT, [facility], WITHOUT [id number] 14:58:00FINAL REPORT CT of the Chest dated [...] MDReport Verified Date/Time: 03/20/2019 14:58:27 Reading Location: [facility] C013Y CT Body Reading Room VANCOMYCIN LEVEL, TROUGH 2019-03-20 13:36:00 Test Item Value Reference Range Interpretation Comments VANCOMYCIN TROUGH (BEAKER) (test 24.0 ug/mL 10.0-20.0 H code = 522) Platform Material Handler Manager ID - BSPOCT-GLUCOSE [id number] 12:46:00 Test Item Value Reference Range Interpretation Comments POC-GLUCOSE METER 87 mg/dL 70-110 : TESTED A T [facility] 6720 (BEAKER) (test code = ILDA Calvert [facility], 1538) [address]: Platform Material Handler Manager/Techni aaron ID = [id number] for ISABELA LE Hemoglobin [id number] 09:33:00 Test Item Value Reference Range Interpretation Comments Hemoglobin A1C (test code = 4548-4) 6.2 % 4.3-6.1 H Lab Interpretation (test code = Abnormal 26896-2) [facility] [id number] 09:33:00 Test Item Value Reference Range Interpretation Comments HEMOGLOBIN A1C (BEAKER) (test code = 6.2 % 4.3-6.1 H 368) Osmolality, [id number] 07:32:00 Test Item Value Reference Range Interpretation Comments Osmolality, Ur (test code = 2695-5) 540 40-1,400 mOsm/kg Lab Interpretation (test code = Normal 36750-4) [facility]OLALITY, [id number] 07:32:00 Test Item Value Reference Range Interpretation Comments OSMOLALITY URINE (BEAKER) (test 540 mOsm/kg 40-1,400 code = 614) ABORH, [id number] 06:44:00 Test Item Value Reference Range Interpretation Comments ABO Grouping (test code = 2588) A Rh Factor (test code = 2589) NEG [facility] HospitalTROPOLAVERNEN [id number] 06:34:00 Test Item Value Reference Range Interpretation [...] failure, acidosis, acute neurological disease, and persistent tachyarrhythmia.Platform Material Handler Manager ID Sultana JORDANNA WLACTIC ACID, VENOUS 2019-03-20 06:14:00 Test Item Value Reference Range Interpretation Comments LACTATE BLOOD VENOUS (2) (BEAKER) 2.0 mmol/L 0.5-2.2 (test code = 2872) Platform Material Handler Manager ID Sultana FLORES WSpecimen slightly ictericPOCT-GLUCOSE [id number] 05:56:00 Test Item Value Reference Range Interpretation Comments POC-GLUCOSE METER 86 mg/dL 70-110 : TESTED A T [facility] 6720 (BEAKER) (test code = ILDA [place], 1538) [address]: Platform Material Handler Manager/Techni aaron ID = [id number] for CHARLEEN OLIVER CBC W/PLT COUNT & AUTO [id number] 05:35:00 Test Item Value Reference Range Interpretation [...] code = 2801) URINALYSIS W/ REFLEX URINE [id number] 04:38:00 Test Item Value Reference Range Interpretation [...] = 516) SOURCE(BEAKER) (test code = 2795) Platform Material Handler Manager ID - [auto]Platform Material Handler Manager ID - techVANESSA, CHEST, 1 VIEW, NON [id number] 04:29:00Reason for exam:->pneumonia, COPD exac, CHF exacShould [...] There is no pneumothorax. Signed: Nakia Goldstein [facility] Verified Date/Time: 03/20/2019 04:29:54 BLOOD GAS, [id number] 04:12:00 Test Item Value Reference Range Interpretation [...] = 1819) 30.0 % TSH/Free T4 If [id number] 04:07:00 Test Item Value Reference Range Interpretation Comments TSH (test code = 67349-0) 3.06 0.35- 4.94 uIU/mL DORI (test code = DORI) Platform Material Handler Manager ID - BS Lab Interpretation (test Normal code = 92579-3) [facility] HospitalTSH/FREE T4 IF [id number] 04:07:00 Test Item Value Reference Range Interpretation Comments THYROID STIMULATING HORMONE 3.06 uIU/mL 0.35-4.94 (BEAKER) (test code = 772) Platform Material Handler Manager ID - BSTROPONIN [id number] 03:57:00 Test Item Value Reference Range Interpretation [...] failure, acidosis, acute neurological disease, and persistent tachyarrhythmia.Platform Material Handler Manager ID - SANDRA WB-TYPE NATRIURETIC FACTOR (BNP)2019-03-20 03:53:00 Test Item Value Reference Range Interpretation Comments B-TYPE NATRIURETIC PEPTIDE (BEAKER) 907 pg/mL 0-100 H (test code = 700) Platform Material Handler Manager ID - BSLipid [id number] 03:52:00 Test Item Value Reference Range Interpretation Comments Triglycerides (test 60 mg/dL Specimen code = 2571-8) slightly hemolyzed Cholesterol (test 55 mg/dL Specimen code = 2093-3) slightly hemolyzed HDL (test code = 15 mg/dL 2085-9) LDL Calculated (test 28 mg/dL code = 16286-0) DORI (test code = Triglyceride DORI) Reference Range: Low Risk <150 Borderline 150-199 High Risk 200-499 Very High Risk >=500 Cholesterol Reference Range: Low Risk <200 Borderline 200-239 High Risk >240 HDL Cholesterol Reference Range: Low Risk >=60 High Risk <40 LDL Cholesterol Reference Range: Optimal <100 Near Optimal 100-129 Borderline 130-159 High 160-189 Very High >=190 Platform Material Handler Manager ID - SANDRA Christiansen slightly icteric [facility] METABOLIC [id number] 03:52:00 Test Item Value Reference Range Interpretation [...] S NOT APPLICABLE FOR DIALYSIS PATIEN TS. Platform Material Handler Manager ID Sultana Cidimecely slightly ictericHEPATIC FUNCTION [id number] 03:52:00 Test Item Value Reference Range Interpretation [...] Specimen slightly (test code = 347) hemolyzed Platform Material Handler Manager ID - SANDRA WSpecimen slightly ictericLIPID [id number] 03:52:00 Test Item Value Reference Range Interpretation [...] Borderline 130-159 High 160-189 Very High >=190 Platform Material Handler Manager ID - SANDRAWSpecimen slightly ictericVANCOMYCIN LEVEL, RANDOM 2019-03-20 03:51:00 Test Item Value Reference Range Interpretation Comments VANCOMYCIN RANDOM (BEAKER) (test 52.3 ug/mL code = 523) Reference Range: No NormalsOperator ID - SANDRA [id number] 03:49:00 Test Item Value Reference Range Interpretation Comments MAGNESIUM (BEAKER) 2.1 mg/dL 1.6-2.6 Specimen slightly (test code = 627) hemolyzed Platform Material Handler Manager ID - SANDRA [id number] 03:49:00 Test Item Value Reference Range Interpretation Comments PHOSPHORUS (BEAKER) 3.0 mg/dL 2.3-4.7 Specimen slightly (test code = 604) hemolyzed Platform Material Handler Manager ID - SANDRA [id number] 03:36:00 Test Item Value Reference Range Interpretation Comments FIBRINOGEN LEVEL (BEAKER) (test 492 mg/dl 225-434 H code = 658) [id number] 03:36:00 Test Item Value Reference Range Interpretation [...] is2.5-3.5 for patients wiht mechanical heart valves.PROTHROMBIN TIME/[id number] 03:35:00 Test Item Value Reference Range Interpretation [...] for patients wiht mechanical heart valves.Chloride, random [id number] 03:33:00 Test Item Value Reference Range Interpretation Comments ChlorideUr (test <20 meq/L code = 98971-2) DORI (test code = Reference Range: No DORI) NormalsOperator ID - BS [facility] CenterSODIUM, RANDOM [id number] 03:33:00 Test Item Value Reference Range Interpretation Comments SODIUM URINE (BEAKER) (test code = < meq/L 243) Reference Range: No NormalsOperator ID - BSCHLORIDE, RANDOM [id number] 03:33:00 Test Item Value Reference Range Interpretation Comments CHLORIDE URINE (BEAKER) (test code = < meq/L 682) Reference Range: No NormalsOperator ID - BSProtein, random [id number] 03:32:00 Test Item Value Reference Range Interpretation Comments Protein, Urine (test code = 72 mg/dL 0-14 H 2888-6) DORI (test code = DORI) Platform Material Handler Manager ID - BS Lab Interpretation (test Abnormal code = 74567-2) [facility]CREAT[facility]INE[facility] RANDOM [id number] 03:32:00 Test Item Value Reference Range Interpretation Comments CREATININE URINE (BEAKER) (test 120.7 mg/dL code = 375) Reference Range: No NormalsOperator ID - BSPROTEIN, RANDOM [id number] 03:32:00 Test Item Value Reference Range Interpretation Comments PROTEIN, URINE (BEAKER) (test code = 72 mg/dL 0-14 H 1569) Platform Material Handler Manager ID - BSUREA NITROGEN, RANDOM [id number] 03:32:00 Test Item Value Reference Range Interpretation Comments UREA NITROGEN URINE (BEAKER) (test 915 mg/dL code = 538) Reference Range: No NormalsOperator ID - BSStrep pneumoniae [id number] 03:31:00 Test Item Value Reference Range Interpretation Comments Strep pneumoniae Presumptive negative Presumptive Antigen (test code = [place] [address]-9) pneumonia - see pneumococcal comment pneumonia - see comment, Presumptive negative for pneumococcal meningitis DORI (test code = DORI) Presumptive negative for pneumococcal pneumonia, suggesting no current or recent pneumococcal infection. Infection due to S. pneumoniae cannot be ruled out since the antigen present in the sample may be below the detection limit of the test. Lab Interpretation Normal (test code = 26710-3) [facility] CenterTREP PNEUMONIAE [id number] 03:31:00 Test Item Value Reference Range Interpretation [...] the detection limit of the test.Legionella antigen, [id number] 03:30:00 Test Item Value Reference Range Interpretation Comments Legionella Urine Negative - see Negative for L. Antigen (test code comment pneumophi la = 09612-9) serogroup 1 ant igen, suggesting no r ecent or current infe ction with this serog roup. Legionellosis c annot be ruled out si nce other serogroup s and species may cau se disease. [facility] HospitalLEGIONELLA ANTIGEN, [id number] 03:30:00 Test Item Value Reference Range Interpretation Comments L. PNEUMOPHILA Negative - see Negative fo r L. SEROGP 1 UR AG comment pneumophila (BEAKER) (test code serogrou p 1 antigen, = 1156) suggesting no r ecent or current infe ction with this serog roup. Legionellosis c annot be ruled out si nce other serogroup s and species may cau se disease. POCT-GLUCOSE [id number] 00:50:00 Test Item Value Reference Range Interpretation Comments POC-GLUCOSE METER 87 mg/dL 70-110 : TESTED A T [facility] 6720 (BEAKER) (test code = ILDA [place], 1538) [address]: Platform Material Handler Manager/Techni aaron ID = [id number] for CHARLEEN OLIVER [id number] 09:16:00 Test Item Value Reference Range Interpretation Comments MAGNESIUM (BEAKER) (test code = 1.7 mg/dL 1.6-2.6 627) [id number] 09:16:00 Test Item Value Reference Range Interpretation Comments PHOSPHORUS (BEAKER) (test code = 4.2 mg/dL 2.3-4.7 604) BASIC METABOLIC [id number] 05:44:00 Test Item Value Reference Range Interpretation [...] PATIEN TS. CBC W/PLT COUNT & AUTO [id number] 05:29:00 Test Item Value Reference Range Interpretation [...] PERCENT (BEAKER) (test code = 2801) TROPONIN [id number] 22:36:00 Test Item Value Reference Range Interpretation [...] acidosis, acute neurological disease, and persistent tachyarrhythmia.TROPONIN [id number] 16:36:00 Test Item Value Reference Range Interpretation [...] neurological disease, and persistent tachyarrhythmia.TSH/FREE T4 IF [id number] 10:58:00 Test Item Value Reference Range Interpretation Comments THYROID STIMULATING HORMONE 1.16 uIU/mL 0.35-4.94 (BEAKER) (test code = 772) TROPONIN [id number] 10:44:00 Test Item Value Reference Range Interpretation [...] of Study 01/22/2019 Gender Male Visit Number [id number] Race Unknown Room Number 2238 Number Date of 1955 Referring BRITTON HAMILTON Physician Age 63 year(s) Bar Examiner Johnny Eller, LAY, RDCS,RVT,RDMS Manager Simulation Aliya Yee Interpreting MD Isaac Grier Physician Procedure Type of Study TTE procedure:2DECHO [...] of 1.82 cm2. 4. Mild mitral regurgitation. 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 5. Aortic [...] severity assessment is unreliable . Aortic Valve Hske-oq-xajtenol AoV cusp calcification. Mild aortic stenosis. AoV area at rest by continuity equation is in the range of 1.82 cm2. Preserved stroke volume. Mitral Valve Mild MV leaflet thickening. Severe mitral annular and subvalvular calcification. Mild mitral regurgitation. Wbxu-mz-ipjoqrix mitral stenosis secondary to MAC. MV area [...] CO: 4.89 l/min LVOT CI: 2.42 l/min/m^2[facility] HospitalMAGNESIUM2019-11-28 10:05:00 Test Item Value Reference Range Interpretation Comments MAGNESIUM (BEAKER) (test code = 1.7 mg/dL 1.6-2.6 627) MR, MRA, BRAIN, WITHOUT [id number] 08:26:00FINAL REPORT MRV Head CLINICAL HISTORY:Stroke, follow upconcern for transverse sinus thrombosis, need MRV please TECHNIQUE: MRV of the head utilizing 2-D zmbb-ir-hrtrpf technique. COMPARISON: CTA 01/22/2019 FINDINGS: There is an irregular filling defect within the medial aspect of the left transverse sinus, corresponding with the abnormality seen on yesterday's CTA. The other major dural venous sinuses in the brain are patent. IMPRESSION: Filling defect within the medial aspect of the left transverse sinus remains concerning for venous thrombosis. Signed: Delaney Rajan Verified Date/Time: 01/23/2019 08:26:36 MRA head without IV [id number] 08:26:00Interface, External Ris In - 01/23/2019 8:29 AM CSTFINAL REPORT MRV Head CLIN ICAL HISTORY:Stroke, follow upconcern for transverse sinus thrombosis, need MRV please TECHNIQUE: MRV of the head utilizing 2-D omur-ur-ypifco technique. COMPARISON: CTA 01/22/2019 FINDINGS: There is an irregular filling defect within the medial aspect of the left transverse sinus, corresponding with the abnormality seen on yesterday's CTA. The other major dural venous sinuses in the brain are patent. IMPRESSION: Filling defect within the medial aspect of the left transverse sinus remains concerningfor venous thrombosis. Signed: Delaney Rajan Verified Date/Time: 01/23/2019 08:26:36 [facility] [id number] 05:55:00 Test Item Value Reference Range Interpretation [...] PATIEN TS. CBC W/PLT COUNT & AUTO [id number] 05:34:00 Test Item Value Reference Range Interpretation [...] 0-1 PERCENT (BEAKER) (test code = 2801) [id number] 20:49:00 Test Item Value Reference Range Interpretation Comments POTASSIUM (BEAKER) (test code = 2.8 meq/L 3.5-5.1 L 379) MR, BRAIN, WITHOUT [id number] 19:25:00Reason for exam:->Ischemic Stroke EvaluationFINAL REPORT MR, [...] RICH on 01/22/2019 7:14 PM. Signed: Delaney Rajanort Verified Date/Time: 01/22/2019 19:25:11 MR brain without IV [id number] 19:25:00Interface, External Ris In - 01/22/2019 7:28 [...] Signed: Delaney Rajan Verified Date/Time: 01/22/2019 19:25:11 [facility]CT[facility] CTANGIO [id number] 19:16:00FINAL REPORT CLINICAL HISTORY: Neuro deficit, acute, [...] Rajan Verified Date/Time: 01/22/2019 19:16:06 CT, CAROTID, [id number] 19:16:00FINAL REPORT CLINICAL HISTORY: Neuro deficit, acute, [...] Rajan MDReport Verified Date/Time: 01/22/2019 19:16:06 CTA [id number] 19:16:00Interface, External Ris In - 01/22/2019 7:18 [...] Signed: Delaney Rajaneport Verified Date/Time: 01/22/2019 19:16:06 [facility] CTA [id number] 19:16:00Interface, External Ris In - 01/24/2019 2:56 [...] Signed: Delaney Rajan Verified Date/Time: 01/22/2019 19:16:06 [facility] CenterRPR2019-11-27 11:47:00 Test Item Value Reference Range Interpretation Comments RPR (test code = 37452-0) Nonreactive Nonreactive Lab Interpretation (test code = Normal 11028-2) [facility] 11:47:00 Test Item Value Reference Range Interpretation Comments RPR SCREEN (BEAKER) (test code = Nonreactive Nonreactive 420) [id number] 08:23:00 Test Item Value Reference Range Interpretation Comments MAGNESIUM (BEAKER) (test code = 1.7 mg/dL 1.6-2.6 627) FastingHEMOGLOBIN [id number] 08:10:00 Test Item Value Reference Range Interpretation Comments HEMOGLOBIN A1C (BEAKER) (test code = 5.7 % 4.3-6.1 368) FastingLIPID [id number] 05:15:00 Test Item Value Reference Range Interpretation [...] 130-159 High 160-189 Very High >=190 FastingTROPONIN [id number] 05:11:00 Test Item Value Reference Range Interpretation [...] neurological disease, and persistent tachyarrhythmia.FastingVITAMIN B12 AND [id number] 04:01:00 Test Item Value Reference Range Interpretation Comments VITAMIN B12 (BEAKER) (test code = 1973 pg/mL 213-816 H 774) FOLATE (BEAKER) (test code = 362) 18.5 ng/mL >=7.0 TSH/FREE T4 IF [id number] 03:48:00 Test Item Value Reference Range Interpretation Comments THYROID STIMULATING HORMONE 1.38 uIU/mL 0.35-4.94 (BEAKER) (test code = 772) TROPONIN [id number] 00:15:00 Test Item Value Reference Range Interpretation [...] acute neurological disease, and persistent tachyarrhythmia.BASIC METABOLIC [id number] 00:11:00 Test Item Value Reference Range Interpretation [...] FOR DIALYSIS PATIEN TS. Specimen slightly ictericPROTHROMBIN TIME/[id number] 23:48:00 Test Item Value Reference Range Interpretation [...] mechanical heart valves.RAD, CHEST, 1 VIEW, NON [id number] 23:46:00Reason for exam:->strokeShould this be performed at the bedside?->YesFINAL REPORT INDICATION: stroke TECHNIQUE: Chest radiograph, single view, portable technique. FINDINGS / IMPRESSION: Patient is status post median sternotomy.Heart shadow is enlarged and there is a small right pleural effusion.No overt pulmonary edema, discrete pneumonia, or pneumothorax is demonstrated.Osseous structures unremarkable. Signed: Jesus Grant MDReport VerifiedDate/Time: 01/21/2019 23:46:27 Reading Location: [facility] B1 C013W Consult Reading Room CBC W/PLT COUNT & AUTO [id number] 23:39:00 Test Item Value Reference Range Interpretation [...] % 0-1 PERCENT (BEAKER) (test code = 0660)
[2019-11-20 10:22] LABS: Absolute Lymphocytes (CBC) 0.9 K/uL (0.7-4.9); Basophils % 0.7 % (0-1.3); Hematocrit 40.1 % (39.6-49.0); Lymphocytes % 11.1 % (15.3-44.8); MPV 8.6 fL (7.6-11.3); Protime INR 1.26; RBC Red Blood Cell Count 4.94 M/uL (4.33-5.43)
[2019-11-20] MEDS ORDERED: FUROSEMIDE 100 MG/10 ML VIAL IV ONE (10:26)
[2019-11-20 10:42] LABS: ALT/SGPT 33 U/L (12-78); AST/SGOT 32 U/L (15-37); Albumin 2.2 g/dL (3.4-5.0); Alkaline Phosphatase 176 U/L (45-117); BUN Blood Urea Nitrogen 9 mg/dL (7-18); Bicarbonate 35 mmol/L (21-32); Bilirubin Direct 0.7 mg/dL (0-0.2); Glucose Level 108 mg/dL (74-106); Magnesium 2.4 mg/dL (1.8-2.4); NT PRO-BNP 2356 pg/mL (<125); Potassium 3.9 mmol/L (3.5-5.1); Protein, Total 6.5 g/dL (6.4-8.2); Sodium Level 138 mmol/L (136-145); Troponin (Emerg Dept Use Only) 0.06 ng/mL (0.0-0.045)
[2019-11-20 10:49] LABS: Anisocytosis 1+; Blood Morphology Comment NOTED (NOT SEEN); Platelet Estimate ADEQ
--- NOTE | 2019-11-20 10:54 | ER ---
Nurse's Notes [facility] Name: Tex Vergara Age: 64 yrs Sex: Male : 1955 Arrival Date: 11/20/2019 Time: 09:32 Bed 5 Private MD: Diagnosis: Acute combined systolic (congestive) and diastolic (congestive) heart failure;Acute pulmonary edema;Acute respiratory failure with hypoxia;Anasarca Presentation: 11/19 09:40 Chief complaint: Patient's son or daughter states: "He lived with my daughter, but she ss moved out 3 weeks ago, and since then he has been becoming more short of breath, his legs are swollen and weeping. We tried to take him to the doctor to get his medications refilled, but they wouldn't see him and told us to come here. We are trying to get everything lined up for him to move in with us in [place].". Coronavirus screen: Client denies travel out of the [place] in the last 14 days. Ebola Screen: Patient denies exposure to infectious person. Patient denies travel to an Ebola-affected area in the 21 days before illness onset. Initial Sepsis Screen: Does the patient meet any 2 criteria? No. Patient's initial sepsis screen is negative. Does the patient have a suspected source of infection? No. Patient's initial sepsis screen is negative. Risk Assessment: Do you want to hurt yourself or someone else? Patient reports no desire to harm self or others. Onset of symptoms is unknown. 09:40 Method Of Arrival: Ambulatory ss 09:40 Acuity: SUMMER 2 ss Historical: - Allergies: 09:38 No Known Allergies; ss - Home Meds: 09:38 amiodarone 200 mg Oral tab 0.5 tab once daily [Active]; aspirin 81 mg Oral chew 1 tab ss once daily [Active]; atorvastatin 40 mg Oral tab 1 tab once daily [Active]; bupropion HCl 100 mg Oral tab 1 tab daily [Active]; Eliquis 5 mg Oral tab 1 tab 2 times per day [Active]; ferrous sulfate 325 mg (65 mg iron) Oral tab twice a day [Active]; furosemide 40 mg Oral tab 1 tab 2 times per day [Active]; fluticasone inhalation [Active]; metolazone 5 mg Oral tab 1 tab twice a day [Active]; magnesium oxide 400 mg Oral cap daily [Active]; metoprolol tartrate 100 mg Oral tab 1 tab 2 times per day [Active]; quetiapine 25 mg Oral tab 1 tab daily [Active]; tramadol 50 mg Oral tab [Active]; Potassium Chloride 15 mL BID Oral [Active]; - PMHx: 09:38 Atrial Fib; CHF; COPD; Hypertension; stroke; TIA; ss - PSHx: 09:38 peg tube; CABG; ss - Immunization history:: Adult Immunizations unknown. - Social history:: Smoking status: Patient reports the use of cigarette tobacco products, smokes two packs cigarettes per day. Screenin:55 Abuse screen: Denies threats or abuse. Nutritional screening: No deficits noted. tw2 Tuberculosis screening: No symptoms or risk factors identified. Fall Risk Secondary diagnosis (15 points) impaired mobility. Assessment: 09:54 Reassessment: provider at bedside at this time. tw2 10:00 General: Appears in no apparent distress. slender, well groomed, Behavior is calm, tw2 cooperative, appropriate for age. Pain: Complains of pain in chest, right leg and left leg. Neuro: Level of Consciousness is awake, alert, obeys commands, Oriented to person, place, time, situation. Cardiovascular: Reports chest pain, shortness of breath, Heart tones S1 S2 Patient's skin is warm and dry. Cardiovascular: Edema is 3+ to left upper thigh, left knee, left midcalf, left ankle, right upper thigh, right knee, right midcalf and right ankle. Respiratory: Reports shortness of breath at rest on exertion Breath sounds with rales bilaterally. GI: No signs and/or symptoms were reported involving the gastrointestinal system. Abdomen is round non-distended, Bowel sounds present X 4 quads. pt has PEG tube noted. : No signs and/or symptoms were reported regarding the genitourinary system. EENT: No signs and/or symptoms were reported regarding the EENT system. Derm: No signs and/or symptoms reported regarding the dermatologic system. Musculoskeletal: Range of motion: intact in all extremities. 10:31 Pain: Pain does not radiate. Pain began 2-3 days ago. tw2 11:10 Reassessment: Patient appears in no apparent distress at this time. No changes from tw2 previously documented assessment. Patient and/or family updated on plan of care and expected duration. Pain level reassessed. 12:10 Reassessment: Patient appears in no apparent distress at this time. No changes from tw2 previously documented assessment. Patient and/or family updated on plan of care and expected duration. Pain level reassessed. 13:09 Reassessment: Patient appears in no apparent distress at this time. No changes from tw2 previously documented assessment. Patient and/or family updated on plan of care and expected duration. Pain level reassessed. 14:33 Reassessment: Patient appears in no apparent distress at this time. No changes from tw2 previously documented assessment. Patient and/or family updated on plan of care and expected duration. Pain level reassessed. 15:27 Reassessment: Patient appears in no apparent distress at this time. No changes from tw2 previously documented assessment. Patient and/or family updated on plan of care and expected duration. Pain level reassessed. 15:48 Reassessment: Report given to [facility]. ss 15:52 Reassessment: Patient appears in no apparent distress at this time. No changes from tw2 previously documented assessment. Patient and/or family updated on plan of care and expected duration. Pain level reassessed. lab at bedside at this time. Vital Signs: 09:38 BP 141 / 64; Pulse 61; Resp 25; Temp 98.0(TE); Pulse Ox 94% on R/A; ss 09:54 Resp 15; Pulse Ox 89% on R/A; tw2 10:09 BP 143 / 60; Pulse 56; Resp 20; Pulse Ox 97% on R/A; tw2 10:30 Weight 81.74 kg (M); tw2 11:10 BP 147 / 65; Pulse 70; Resp 19; Pulse Ox 94% on R/A; tw2 12:10 BP 143 / 69; Pulse 71; Resp 22; Pulse Ox 89% on R/A; tw2 13:08 BP 146 / 61; Pulse 68; Resp 19; Pulse Ox 93% on R/A; tw2 14:32 BP 148 / 61; Pulse 67; Resp 16; Pulse Ox 95% on 2 lpm NC; tw2 15:26 BP 153 / 62; Pulse 67; Resp 18; Pulse Ox 98% on 2 lpm NC; tw2 ED Course: 09:32 Patient arrived in ED. ag5 09:38 Arm band placed on right wrist. ss 09:42 Triage completed. ss 09:46 Placed in gown. Bed in low position. Call light in reach. Side rails up X 1. Adult w/ tw2 patient. recruiter coordinator on. Pulse ox on. NIBP on. 09:48 Alessandro Garcia PA is PHCP. jr8 09:48 Wale Concepcion MD is Attending Physician. jr8 09:50 Ryan Patel RN is Primary Nurse. jl7 10:05 Inserted saline lock: 20 gauge in right antecubital area, using aseptic technique. tw2 Blood collected. 10:30 Patient maintains SpO2 saturation greater than 95% on room air. tw2 10:43 XRAY Chest (1 view) In Process Unspecified. EDMS 10:53 Ziyad Ponce is Hospitalizing Provider. jr8 15:26 No provider procedures requiring assistance completed. Patient admitted, IV remains in tw2 place. 15:30 Awaiting: unsuccessful attempt to call report at this time. tw2 Administered Medications: 10:20 Drug: Lasix 80 mg Route: IVP; Site: right antecubital; tw2 12:11 Follow up: Response: No adverse reaction tw2 Output: 11:18 Urine: 750ml (Voided); Total: 750ml. tw2 12:06 Urine: 750ml (Voided); Total: 1500ml. tw2 13:46 Urine: 1300ml (Voided); Total: 2800ml. tw2 15:51 Urine: 1300ml (Voided); Total: 4100ml. tw2 Outcome: 10:54 Decision to Hospitalize by Provider. jr8 15:51 Admitted to Med/surg accompanied by [facility], room 206. tw2 15:51 Condition: stable 15:51 Instructed on the need for admit. 15:56 Patient left the ED. Signatures: Dispatcher [employer] [facility] Nani Watts RN RN Alessandro Garcia PA PA jr8 Caroline Rondon RN RN tw2 Ryan Patel RN RN jl7 Marco A Bañuelos ag5 Corrections: (The following items were deleted from the chart) 09:43 09:38 PSHx: heart transplant; [facility] 09:55 09:54 Pulse Ox 89% RA; tw2 tw2 13:51 10:00 GI: No signs and/or symptoms were reported involving the gastrointestinal system. tw2 Abdomen is round non-distended, Bowel sounds present X 4 quads. tw2
--- NOTE | 2019-11-20 10:54 | EDPHYS ---
Physician Documentation [facility] Name: Tex Vergara Age: 64 yrs Sex: Male : 1955 Arrival Date: 11/20/2019 Time: 09:32 Bed 5 Private MD: ED Physician Wale Concepcion HPI: 11/19 10:49 This 64 yrs old Male presents to ER via Ambulatory with complaints of Chest jr8 Pain, Breathing Difficulty, Leg Swelling, Leg Pain. 10:49 The patient has shortness of breath at rest. Onset: The symptoms/episode began/occurred jr8 gradually, 2 week(s) ago, and became worse and became persistent. Duration: The symptoms are continuous. The patient's shortness of breath is aggravated by prone position, walking. Associated signs and symptoms: Pertinent positives: lower extremity edema . Severity of symptoms: At their worst the symptoms were moderate in the emergency department the symptoms are unchanged. It is unknown whether or not the patient has had similar symptoms in the past. The patient has not recently seen a physician. Family stated that patient has been like this for some time. Has known heart problems. PCP not filling his medications. Stated that they just took over his care. Mildly handicapped secondary to his previous strokes. Historical: - Allergies: 09:38 No Known Allergies; ss - Home Meds: 09:38 amiodarone 200 mg Oral tab 0.5 tab once daily [Active]; aspirin 81 mg Oral chew 1 tab ss once daily [Active]; atorvastatin 40 mg Oral tab 1 tab once daily [Active]; bupropion HCl 100 mg Oral tab 1 tab daily [Active]; Eliquis 5 mg Oral tab 1 tab 2 times per day [Active]; ferrous sulfate 325 mg (65 mg iron) Oral tab twice a day [Active]; furosemide 40 mg Oral tab 1 tab 2 times per day [Active]; fluticasone inhalation [Active]; metolazone 5 mg Oral tab 1 tab twice a day [Active]; magnesium oxide 400 mg Oral cap daily [Active]; metoprolol tartrate 100 mg Oral tab 1 tab 2 times per day [Active]; quetiapine 25 mg Oral tab 1 tab daily [Active]; tramadol 50 mg Oral tab [Active]; Potassium Chloride 15 mL BID Oral [Active]; - PMHx: 09:38 Atrial Fib; CHF; COPD; Hypertension; stroke; TIA; ss - PSHx: 09:38 peg tube; CABG; ss - Immunization history:: Adult Immunizations unknown. - Social history:: Smoking status: Patient reports the use of cigarette tobacco products, smokes two packs cigarettes per day. ROS: 10:49 Eyes: Negative for injury, pain, redness, and discharge, ENT: Negative for injury, jr8 pain, and discharge, Neck: Negative for injury, pain, and swelling, Abdomen/GI: Negative for abdominal pain, nausea, vomiting, diarrhea, and constipation, Back: Negative for injury and pain, MS/Extremity: Negative for injury and deformity, Skin: Negative for injury, rash, and discoloration, Neuro: Negative for headache, weakness, numbness, tingling, and seizure. 10:49 Cardiovascular: Positive for edema, orthopnea. 10:49 Respiratory: Positive for dyspnea on exertion, orthopnea, shortness of breath. Exam: 10:49 Eyes: Pupils equal round and reactive to light, extra-ocular motions intact. Lids and jr8 lashes normal. Conjunctiva and sclera are non-icteric and not injected. Cornea within normal limits. Periorbital areas with no swelling, redness, or edema. ENT: Nares patent. No nasal discharge, no septal abnormalities noted. Tympanic membranes are normal and external auditory canals are clear. Oropharynx with no redness, swelling, or masses, exudates, or evidence of obstruction, uvula midline. Mucous membranes moist. Neck: Trachea midline, no thyromegaly or masses palpated, and no cervical lymphadenopathy. Supple, full range of motion without nuchal rigidity, or vertebral point tenderness. No Meningismus. Abdomen/GI: Soft, non-tender, with normal bowel sounds. No distension or tympany. No guarding or rebound. No evidence of tenderness throughout. Back: No spinal tenderness. No costovertebral tenderness. Full range of motion. Skin: Warm, dry with normal turgor. Normal color with no rashes, no lesions, and no evidence of cellulitis. MS/ Extremity: Pulses equal, no cyanosis. Neurovascular intact. Full, normal range of motion. Neuro: Awake and alert, GCS 15, oriented to person, place, time, and situation. Cranial nerves II-XII grossly intact. Motor strength 5/5 in all extremities. Sensory grossly intact. Cerebellar exam normal. Normal gait. 10:49 Cardiovascular: Rate: normal, Rhythm: irregular, Pulses: Pulses are 2+ in right radial artery and left radial artery. Heart sounds: murmur, systolic, grade 4 over 6, heard in the aortic area, S1, normal, S2, normal, Edema: 4+ edema to level of waist, pubic area, left upper thigh, left lower thigh, left knee, left midcalf, left ankle, right upper thigh, right lower thigh, right knee, right midcalf and right ankle, pedal edema. 10:49 Respiratory: the patient does not display signs of respiratory distress, Respirations: jr8 normal, Breath sounds: rales, that are moderate, are located in both bases. Vital Signs: 09:38 BP 141 / 64; Pulse 61; Resp 25; Temp 98.0(TE); Pulse Ox 94% on R/A; ss 09:54 Resp 15; Pulse Ox 89% on R/A; tw2 10:09 BP 143 / 60; Pulse 56; Resp 20; Pulse Ox 97% on R/A; tw2 10:30 Weight 81.74 kg (M); tw2 11:10 BP 147 / 65; Pulse 70; Resp 19; Pulse Ox 94% on R/A; tw2 12:10 BP 143 / 69; Pulse 71; Resp 22; Pulse Ox 89% on R/A; tw2 13:08 BP 146 / 61; Pulse 68; Resp 19; Pulse Ox 93% on R/A; tw2 14:32 BP 148 / 61; Pulse 67; Resp 16; Pulse Ox 95% on 2 lpm NC; tw2 15:26 BP 153 / 62; Pulse 67; Resp 18; Pulse Ox 98% on 2 lpm NC; tw2 MDM: 09:48 Patient medically screened. jr8 10:53 Data reviewed: vital signs, nurses notes, lab test result(s), EKG, radiologic studies, jr8 plain films. Data interpreted: Pulse oximetry: on room air is 89 %. Interpretation: hypoxia. Counseling: I had a detailed discussion with the patient and/or guardian regarding: the historical points, exam findings, and any diagnostic results supporting the discharge/admit diagnosis, lab results, radiology results, the need for further work-up and treatment in the hospital. 11/19 09:49 Order name: Basic Metabolic Panel; Complete Time: 10:46 11/19 09:49 Order name: CBC with Diff; Complete Time: 10:54 11/19 09:49 Order name: LFT's; Complete Time: 10:46 11/19 09:49 Order name: Magnesium; Complete Time: 10:46 11/19 09:49 Order name: NT PRO-BNP; Complete Time: 10:46 11/19 09:49 Order name: PT-INR; Complete Time: 10:41 11/19 09:49 Order name: Troponin (emerg Dept Use Only); Complete Time: 10:46 11/19 09:49 Order name: XRAY Chest (1 view); Complete Time: 11:39 11/19 09:49 Order name: EKG; Complete Time: 09:49 11/19 09:49 Order name: Cardiac monitoring; Complete Time: 10:10 11/19 09:49 Order name: EKG - Nurse/Tech; Complete Time: 10:10 11/19 09:49 Order name: IV Saline Lock; Complete Time: 10:10 11/19 10:49 Order name: Manual Differential; Complete Time: 10:54 EDHI 11/19 09:49 Order name: Labs collected and sent; Complete Time: 10:10 11/19 09:49 Order name: O2 Per Protocol; Complete Time: 09:56 11/19 09:49 Order name: O2 Sat Monitoring; Complete Time: 09:56 Administered Medications: 10:20 Drug: Lasix 80 mg Route: IVP; Site: right antecubital; tw2 12:11 Follow up: Response: No adverse reaction tw2 Disposition: 17:33 Co-signature as Attending Physician, Wale Concepcion MD. rn Disposition: 11/20/19 10:54 Hospitalization ordered by Ziyad Ponce for Inpatient Admission. Preliminary diagnosis are Acute combined systolic (congestive) and diastolic (congestive) heart failure, Acute pulmonary edema, Acute respiratory failure with hypoxia, Anasarca. - Bed requested for Telemetry/MedSurg (Inpatient). - Status is Inpatient Admission. ss - Condition is Fair. - Problem is new. - Symptoms have improved. Signatures: Dispatcher [facility] Viky Monge RN RN dw Wale Concepcion MD MD rn Smirch, Shelby, RN RN Alessandro Garcia PA PA jr8 Caroline Rondon RN RN tw2 Corrections: (The following items were deleted from the chart) 09:43 09:38 PSHx: heart transplant; ss ss 12:39 10:54 Hospitalization Ordered by Ziyad Ponce for Inpatient Admission. Preliminary 8 diagnosis is Acute combined systolic (congestive) and diastolic (congestive) heart failure; Acute pulmonary edema; Acute respiratory failure with hypoxia. Bed requested for Telemetry/MedSurg (Inpatient). Status is Inpatient Admission. Condition is Fair. Problem is new. Symptoms have improved. 8 15:19 12:39 11/20/2019 10:54 Hospitalization Ordered by Ziyad Ponce for Inpatient Admission. Preliminary diagnosis is Acute combined systolic (congestive) and diastolic (congestive) heart failure; Acute pulmonary edema; Acute respiratory failure with hypoxia; Anasarca. Bed requested for Telemetry/MedSurg (Inpatient). Status is Inpatient Admission. Condition is Fair. Problem is new. Symptoms have improved. [facility] 15:21 15:19 11/20/2019 10:54 Hospitalization Ordered by Ziyad Ponce for Inpatient dw Admission. Preliminary diagnosis is Acute combined systolic (congestive) and diastolic (congestive) heart failure; Acute pulmonary edema; Acute respiratory failure with hypoxia; Anasarca. Bed requested for Telemetry/MedSurg (Inpatient). Status is Inpatient Admission. Condition is Fair. Problem is new. Symptoms have improved. 15:56 15:21 11/20/2019 10:54 Hospitalization Ordered by Ziyad Ponce for Inpatient ss Admission. Preliminary diagnosis is Acute combined systolic (congestive) and diastolic (congestive) heart failure; Acute pulmonary edema; Acute respiratory failure with hypoxia; Anasarca. Bed requested for Telemetry/MedSurg (Inpatient). Status is Inpatient Admission. Condition is Fair. Problem is new. Symptoms have improved.
--- NOTE | 2019-11-20 11:15 | RAD REPORT ---
EXAM DESCRIPTION: RAD - Chest Single View - 11/20/2019 10:43 am CLINICAL HISTORY: DYSPNEA COMPARISON: Single-view chest October 13 TECHNIQUE: AP portable chest image was obtained 11/20/2019 10:43 am . FINDINGS: Right base pleural effusion with infiltrate and/ or atelectasis at the right base not shital rly different from comparison. Pleural fluid on the left may have increased slightly. Interstitial ma rkings are prominent. Vasculature has decreased in prominence. Sternotomy wires are in place. Mild ca rdiomegaly is present without vascular engorgement. No pneumothorax. IMPRESSION: Bilateral pleural effusions with bilateral lung base infiltrate and/ or atelectasis. Mid and upper lung contreras are similar to comparison. Left pleural effusion may be slightly worse.
--- NOTE | 2019-11-20 14:04 | P.HP ---
Certification for Inpatient Patient admitted to: Inpatient With expected LOS: >2 Midnights Practitioner: I am a practitioner with admitting privileges, knowledge of patient current condition, hospital course, and medical plan of care. Services: Services provided to patient in accordance with Admission requirements found in Title 42 Section 412.3 of the Code of Federal Regulations Patient History Date of Service: 11/20/19 Reason for admission: Increased body swelling History of Present Illness: 64-year-old gentleman with a history of chronic diastolic heart failure, CVA, dysphagia on PEG tube feeding was brought to the emergency department due to increasing lower extremity swelling. Patient is on Lasix therapy which he stated he has been compliant with. He also stated he ran out of his other medications and has been experiencing increasing swelling of his lower extremities. His daughter asked him to come to the ER to be evaluated. His chest x-ray shows bilateral pleural effusion. His serum creatinine is normal. BNP elevated. Patient is admitted for CHF exacerbation. Allergies No Known Allergies Allergy (Verified 05/15/18 11:25) Home Medications: Ferrous Sulfate [Ferrous Sulfate*] 1 tab FT BID 10/09/19 Fluticasone [Flonase 50MCG Nasal [place]*] 2 spray JELENA DAILY 10/09/19 Furosemide [Lasix*] 40 mg FT DAILY 10/09/19 Lactulose [Cephulac*] 30 ml FT BID 10/09/19 Magnesium Oxide [Mag 0X*] 1 tab FT DAILY 10/09/19 Trazodone [Desyrel*] 1 tab FT BEDTIME 10/09/19 Amox/K Clav [Augmentin 600 MG/5 ML Susp] 5 ml FT BID #50 ml 10/16/19 Arformoterol Tartrate [Brovana] 15 mcg NEB BIDRESP #60 vial.neb 10/16/19 Aspirin Chewable [Aspirin Chewable*] 81 mg FT DAILY #30 tab.chew 10/16/19 Atorvastatin Calcium [Lipitor] 40 mg FT BEDTIME #30 tab 10/16/19 Calcitrol [Rocaltrol*] 0.5 mcg PO DAILY #30 cap 10/16/19 Doxycycline Hyclate [Vibramycin] 100 mg PO BID #20 capsule 10/16/19 Ipratropium Neb [Atrovent*] 0.5 mg NEB [id number] PRN #120 amp 10/16/19 Jevity 1.5 Barney Liquid 237 ml FT 5XD #0 bot 10/16/19 Lactulose [Cephulac*] 30 ml PO TID PRN #900 ml 10/16/19 Nicotine [Nicoderm*] 21 mg TD DAILY patch.td24 10/16/19 Thiamine HCl [Vitamin B-1*] 100 mg PO DAILY #30 tablet 10/16/19 lisinopriL [Prinivil*] 5 mg PO DAILY #30 tab 10/16/19 predniSONE [Prednisone*] 20 mg FT BID #10 tab 10/16/19 - Past Medical/Surgical History Diabetic: No -: Hypertension -: Chronic back pain -: CHF -: Atrial Fibrillation -: History of CVA -: Depression -: COPD -: Dysphagia now with PEG tube -: Back surgery -: CABG -: PEG tube Psychosocial/ Personal History: Patient lives at home with his daughter - Family History Mother -: Heart disease Notes: Multiple strokes - Social History Alcohol use: No CD- Drugs: No Caffeine use: Yes Review of Systems Other: Except as documented, all other systems reviewed and negative. Physical Examination - Physical Exam General: Alert, In no apparent distress HEENT: Mucous membr. moist/pink Neck: Supple, JVD not distended Respiratory: Clear to auscultation bilaterally, Normal air movement Cardiovascular: Normal S1 S2, Edema (3+ bilateral lower extremity pitting edema), Irregular heart rate/rhythm Gastrointestinal: Normal bowel sounds, Soft and benign, Non-distended, Other (PEG tube) Musculoskeletal: Erythema (Bilateral legs) Neurological: Normal speech, Normal strength at 5/5 x4 extr - Studies Laboratory Data (last 24 hrs) 11/20/19 10:05: PT 14.8 H, INR 1.26 11/20/19 10:05: WBC 7.7, Hgb 12.4 L, Hct 40.1, Plt Count 276 11/20/19 10:05: Sodium 138, Potassium 3.9, BUN 9, Creatinine 0.85, Glucose 108 H, Magnesium 2.4, Total Bilirubin 1.0, AST 32, ALT 33, Alkaline Phosphatase 176 H Assessment and Plan - Problems (Diagnosis) (1) Anasarca Current Visit: Yes Status: Acute (2) Acute on chronic diastolic heart failure Current Visit: Yes Status: Acute (3) Chronic atrial fibrillation Current Visit: No Status: Acute (4) Pleural effusion Current Visit: No Status: Acute - Plan Admit to the medical floor. Start IV Lasix 80 mg b.i.d. Monitor renal function Fluid restriction to 1500 mL per day. I suspect his anasarca secondary to chronic liver disease. Elevated troponin likely secondary to demand ischemia. Continue tube feeding Blood pressure control. Obtain Liver ultrasound. - Advance Directives Does patient have a Living Will: Yes Does patient have a Durable POA for Healthcare: No
[2019-11-20 16:30] VITALS: BMI 27.3
[2019-11-20] MEDS ORDERED: POTASSIUM 25 MEQ EFFERV TAB PO ONE (16:45)
[2019-11-20] MEDS ORDERED: PNEUMOCOCCAL VACCINE 0.5 ML IMVAC ONE (17:00)
[2019-11-20] MEDS: FUROSEMIDE 40 MG/4 ML VIAL IV SCH (17:09)
[2019-11-20] MEDS: ENOXAPARIN 40 MG/0.4 ML SQ SCH (17:10)
[2019-11-21 06:21] LABS: Basophils % 1.1 % (0-1.3); Hematocrit 36.7 % (39.6-49.0); MPV 8.8 fL (7.6-11.3)
[2019-11-21 06:43] LABS: BUN Blood Urea Nitrogen 9 mg/dL (7-18); Bicarbonate 39 mmol/L (21-32); Glucose Level 85 mg/dL (74-106); HDL Cholesterol 45 mg/dL (40-60); LDL Cholesterol, Calculated 19 (<130); Magnesium 2.2 mg/dL (1.8-2.4); Potassium 3.7 mmol/L (3.5-5.1); Sodium Level 144 mmol/L (136-145)
--- NOTE | 2019-11-21 07:19 | RAD REPORT ---
EXAM DESCRIPTION: US - Liver Only - 11/20/2019 10:34 pm CLINICAL HISTORY: Abdominal pain/anasarca COMPARISON: August 2019 cat scan FINDINGS: The liver has an increased echotexture. Hepatopetal flow. A lesion is not visualized. The spleen measures 11.8 centimeters. Small amount of ascites is present. Small to moderate left pleural effusion. Small right pleural effusion IMPRESSION: Increased hepatic echotexture consistent with parenchymal disease. This may represent fa tty infiltration or inflammation Unremarkable ultrasound spleen
[2019-11-21] MEDS ORDERED: POTASSIUM 25 MEQ EFFERV TAB PO ONE (09:00)
[2019-11-21] MEDS: FUROSEMIDE 40 MG/4 ML VIAL IV SCH ×2 (09:23→17:04)
[2019-11-21] MEDS: ENOXAPARIN 40 MG/0.4 ML SQ SCH (09:24)
[2019-11-21 10:25] LABS: Anisocytosis 1+; Blood Morphology Comment NOTED (NOT SEEN); Hypochromasia 1+; Platelet Estimate ADEQ; White Blood Cell Scan OK (OK)
[2019-11-21] MEDS ORDERED: ENSURE ENLIVE 237 ML CAN PO PRN (14:27)
--- NOTE | 2019-11-21 17:14 | P.PN ---
Subjective Date of Service: 11/21/19 Chief Complaint: Increased body swelling Patient's leg edema is improving. He is mobile, significantly diuresed with the IV Lasix. Physical Examination - Vital Signs Temperature: 98.2 F Blood Pressure: 114/50 Pulse: 62 Respirations: 15 Pulse Ox (%): 93 - Physical Exam General: Alert, In no apparent distress HEENT: Mucous membr. moist/pink Neck: Supple Respiratory: Clear to auscultation bilaterally, Normal air movement Cardiovascular: Regular rate/rhythm, Normal S1 S2, Edema (3+ bilateral lower extremity pitting edema) Gastrointestinal: Normal bowel sounds, Soft and benign, Non-distended, Other (Peg tube) Musculoskeletal: Erythema (Bilateral lower extremities) Integumentary: Other (Bilateral venous stasis dermatitis.) Neurological: Normal strength at 5/5 x4 extr Assessment And Plan - Current Problems (Diagnosis) (1) Anasarca Current Visit: Yes Status: Acute (2) Acute on chronic diastolic heart failure Current Visit: Yes Status: Acute (3) Chronic atrial fibrillation Current Visit: No Status: Acute (4) Pleural effusion Current Visit: No Status: Acute - Plan Continue IV Lasix 80 mg b.i.d. Monitor renal function Fluid restriction to 1500 mL per day. Monitor intake and output. I suspect his anasarca secondary to chronic liver disease. Liver ultrasound shows chronic liver disease. Elevated troponin likely secondary to demand ischemia. Troponin trended flat. Continue tube feeding Blood pressure control.
[2019-11-22] MEDS ORDERED: LORazepam 2 MG/ML VIAL IV ONE (02:56)
[2019-11-22] MEDS ORDERED: LORazepam 2 MG/ML VIAL ONE (03:11)
[2019-11-22 06:57] LABS: Potassium 3.6 mmol/L (3.5-5.1)
[2019-11-22 07:05] LABS: Absolute Lymphocytes (CBC) 0.8 K/uL (0.7-4.9); Basophils % 1.5 % (0-1.3); Hematocrit 38.5 % (39.6-49.0); Lymphocytes % 9.8 % (15.3-44.8); RBC Red Blood Cell Count 4.66 M/uL (4.33-5.43)
[2019-11-22] MEDS ORDERED: POTASSIUM 25 MEQ EFFERV TAB PO ONE (09:00)
[2019-11-22] MEDS: ENOXAPARIN 40 MG/0.4 ML SQ SCH (09:16)
[2019-11-22] MEDS: FUROSEMIDE 40 MG/4 ML VIAL IV SCH ×2 (09:16→17:51)
[2019-11-22 11:01] LABS: Blood Gas Oxyhemoglobin 61.2 % (94-97); Blood O2 Saturation 62.9 % (92-98.5)
[2019-11-22] MEDS ORDERED: KCL 20 MEQ/100 mL IVPB 20 MEQ/100 ML BAG IV SCH (12:00)
[2019-11-22] MEDS ORDERED: NA CHLORIDE 0.9% 250 ML IV PRN (12:35)
[2019-11-22] MEDS ORDERED: NA CHLORIDE 0.9% 250 ML ONE (12:49)
--- NOTE | 2019-11-22 13:06 | P.PN ---
Subjective Date of Service: 11/22/19 Chief Complaint: Increased body swelling Patient's leg edema is improving. Patient got confused last night. Nursing staff report he was agitated and received a dose of Ativan. Patient remain confused and somnolent. Physical Examination - Vital Signs Temperature: 98.1 F Blood Pressure: 126/62 Pulse: 64 Respirations: 16 Pulse Ox (%): 99 - Physical Exam General: Confused Respiratory: Clear to auscultation bilaterally, Normal air movement Cardiovascular: Regular rate/rhythm, Normal S1 S2, Edema (2+ bilateral lower extremity pitting edema) Gastrointestinal: Normal bowel sounds, Soft and benign Musculoskeletal: Erythema (Bilateral lower extremities) - Studies Laboratory Data (last 24 hrs) 11/22/19 06:13: Sodium 144, Potassium 3.6, BUN 11, Creatinine 0.95, Glucose 105 11/22/19 06:13: WBC 8.1, Hgb 11.8 L, Hct 38.5 L, Plt Count 257 Microbiology Data (last 24 hrs): 11/21/19 14:45 Nasopharnyx Coronavirus COVID-19 PCR - Final Assessment And Plan - Current Problems (Diagnosis) (1) Anasarca Current Visit: Yes Status: Acute (2) Acute on chronic diastolic heart failure Current Visit: Yes Status: Acute (3) Chronic atrial fibrillation Current Visit: No Status: Acute (4) Pleural effusion Current Visit: No Status: Acute (5) Metabolic encephalopathy Current Visit: Yes Status: Acute (6) Acute respiratory failure with hypercapnia Current Visit: Yes Status: Acute - Plan Continue IV Lasix 80 mg b.i.d. Monitor renal function Fluid restriction to 1500 mL per day. Monitor intake and output. I suspect his anasarca secondary to chronic liver disease. Liver ultrasound shows chronic liver disease. Elevated troponin likely secondary to demand ischemia. Troponin trended flat. Continue tube feeding. BiPAP for hypercapnic respiratory failure. Supplemental oxygen. Bronchodilators.
[2019-11-23 06:42] LABS: BUN Blood Urea Nitrogen 14 mg/dL (7-18); Bicarbonate > 45 mmol/L (21-32); Glucose Level 119 mg/dL (74-106); Sodium Level 145 mmol/L (136-145)
[2019-11-23 06:46] LABS: Arterial Blood Carboxyhemoglob 2.1 % (0-1.5); Blood Gas Oxyhemoglobin 95.6 % (94-97); Blood O2 Saturation 98.5 % (92-98.5)
[2019-11-23 08:31] LABS: Arterial Blood Carboxyhemoglob 2.3 % (0-1.5); Blood Gas Oxyhemoglobin 92.7 % (94-97); Blood O2 Saturation 95.7 % (92-98.5)
[2019-11-23] MEDS: ENOXAPARIN 40 MG/0.4 ML SQ SCH (08:34)
[2019-11-23] MEDS: FUROSEMIDE 40 MG/4 ML VIAL IV SCH ×2 (08:34→17:12)
[2019-11-23] MEDS: NICOTINE 21 MG/PAT TD SCH (10:40)
[2019-11-23] MEDS ORDERED: LORazepam 2 MG/ML VIAL IV ONE ×2 (11:00→20:25)
--- NOTE | 2019-11-23 11:40 | P.PN ---
Subjective Date of Service: 11/23/19 Chief Complaint: Increased body swelling Patient's leg edema has significantly improved but he remained confused and now agitated. He has also been retaining CO2. Physical Examination - Vital Signs Temperature: 97.4 F Blood Pressure: 154/67 Pulse: 61 Respirations: 21 Pulse Ox (%): 95 - Physical Exam General: Confused HEENT: Mucous membr. moist/pink Neck: Supple Respiratory: Clear to auscultation bilaterally, Diminished Cardiovascular: Regular rate/rhythm, Normal S1 S2, Edema (1+ bilateral lower extremity edema. Lower extremity edema significantly improved.) Gastrointestinal: Normal bowel sounds, Soft and benign, Non-distended Integumentary: Erythema (Bilateral lower extremity venostasis dermatitis) Neurological: Other (Nonfocal, confused.) Assessment And Plan - Current Problems (Diagnosis) (1) Anasarca Current Visit: Yes Status: Acute (2) Acute on chronic diastolic heart failure Current Visit: Yes Status: Acute (3) Chronic atrial fibrillation Current Visit: No Status: Acute (4) Pleural effusion Current Visit: No Status: Acute (5) Metabolic encephalopathy Current Visit: Yes Status: Acute (6) Acute respiratory failure with hypercapnia Current Visit: Yes Status: Acute - Plan Continue IV Lasix 80 mg b.i.d for 1 more day. Monitor renal function Fluid restriction to 1500 mL per day. Monitor intake and output. I suspect his anasarca secondary to chronic liver disease. Liver ultrasound shows chronic liver disease. Elevated troponin likely secondary to demand ischemia. Troponin trended flat. Continue tube feeding. Continue BiPAP for hypercapnic respiratory failure. Ativan p.r.n. for agitation. Monitor blood gas Supplemental oxygen. Bronchodilators.
[2019-11-23] MEDS ORDERED: LORazepam 2 MG/ML VIAL IV PRN (23:41)
[2019-11-23] MEDS ORDERED: LORazepam 2 MG/ML VIAL ONE (23:52)
[2019-11-24] MEDS ORDERED: HALOPERIDOL LACT 5 MG/ML INJ IV PRN ×2 (01:30→11:55)
[2019-11-24 04:30] LABS: Basophils % 0.6 % (0-1.3); Hematocrit 38.3 % (39.6-49.0); Lymphocytes % 10.5 % (15.3-44.8); MPV 8.8 fL (7.6-11.3); RBC Red Blood Cell Count 4.71 M/uL (4.33-5.43)
[2019-11-24 05:09] LABS: BUN Blood Urea Nitrogen 13 mg/dL (7-18); Glucose Level 82 mg/dL (74-106); Phosphorus 1.5 mg/dL (2.5-4.9); Sodium Level 145 mmol/L (136-145)
[2019-11-24 05:10] LABS: Potassium 2.9 mmol/L (3.5-5.1)
[2019-11-24 05:11] LABS: Bicarbonate 60 mmol/L (21-32)
[2019-11-24] MEDS: KCL 20 MEQ/100 mL IVPB 20 MEQ/100 ML BAG IV SCH ×3 (05:29→14:41)
[2019-11-24] MEDS ORDERED: NA CHLORIDE 0.9% 500 ML ONE (05:41)
[2019-11-24] MEDS ORDERED: POTASSIUM PHOS IN 0.9 % NACL 15 MMOL/250 ML BAG IV ONE (09:00)
[2019-11-24] MEDS: FUROSEMIDE 40 MG/4 ML VIAL IV SCH (09:16)
[2019-11-24] MEDS: ENOXAPARIN 40 MG/0.4 ML SQ SCH (09:20)
[2019-11-24] MEDS: NICOTINE 21 MG/PAT TD SCH (09:20)
[2019-11-24] MEDS ORDERED: LORazepam 2 MG/ML VIAL IV PRN (10:17)
[2019-11-24] MEDS ORDERED: RSI MEDICATION KIT IV ONE (11:06)
[2019-11-24] MEDS: propofoL 1,000 MG/100 ML VIAL IV PRN ×2 (11:07→21:15)
[2019-11-24] MEDS ORDERED: propofoL 1,000 MG/100 ML VIAL IV ONE ×2 (11:14→20:09)
[2019-11-24] MEDS ORDERED: MIDAZOLAM HCL 2 MG/2 ML INJ IV PRN (11:55)
[2019-11-24] MEDS ORDERED: FENTANYL CITR 100 MCG/2 ML IV PRN (11:55)
--- NOTE | 2019-11-24 12:05 | RAD REPORT ---
EXAM DESCRIPTION: RAD - Chest Single View - 11/24/2019 11:52 am CLINICAL HISTORY: ett, intubation, respiratory distress COMPARISON: November 19 TECHNIQUE: AP portable chest image was obtained 11/24/2019 11:52 am . FINDINGS: Endotracheal tube is in place. Tip is mid aortic arch level 3 cm above the shruthi. Bilateral pleural and parenchymal lung base opacification present. Interstitial and alveolar opacitie s are present with the alveolar opacification progressive from November 19. Heart size is upper norm al. No pneumothorax. IMPRESSION: Endotracheal tube in good position mid aortic arch level. Alveolar edema or infiltrate changes superimposed on chronic interstitial lung disease. Chronic bilateral lung base pleural and parenchymal opacification.
[2019-11-24] MEDS ORDERED: NA CHLORIDE 0.9% 1,000 ML ONE ×2 (12:44→16:43)
[2019-11-24] MEDS ORDERED: ALBUMIN HUMAN 25% 100 ML IV ONE ×2 (12:44→13:47)
--- NOTE | 2019-11-24 12:57 | P.CNS ---
Date of Consult: 11/24/19 Reason for Consult: Respiratory failure patient on a ventilator Chief Complaint: Respiratory failure History of Present Illness: Patient is 64 years of age with chronic diastolic heart failure see the AE dysphagia has a PEG tube lower extremity edema the DNR of his medications swelling started to get worse came to the emergency room was admitted became progressively worse was hypoxic hypercapnic and was intubated this morning Allergies No Known Allergies Allergy (Verified 05/15/18 11:25) Home Medications: Ferrous Sulfate [Ferrous Sulfate*] 1 tab FT BID 10/09/19 Fluticasone [Flonase 50MCG Nasal Burt*] 2 spray JELENA DAILY 10/09/19 Furosemide [Lasix*] 40 mg FT DAILY 10/09/19 Lactulose [Cephulac*] 30 ml FT BID 10/09/19 Magnesium Oxide [Mag 0X*] 1 tab FT DAILY 10/09/19 Trazodone [Desyrel*] 1 tab FT BEDTIME 10/09/19 Amox/K Clav [Augmentin 600 MG/5 ML Susp] 5 ml FT BID #50 ml 10/16/19 Arformoterol Tartrate [Brovana] 15 mcg NEB BIDRESP #60 vial.neb 10/16/19 Aspirin Chewable [Aspirin Chewable*] 81 mg FT DAILY #30 tab.chew 10/16/19 Atorvastatin Calcium [Lipitor] 40 mg FT BEDTIME #30 tab 10/16/19 Doxycycline Hyclate [Vibramycin] 100 mg PO BID #20 capsule 10/16/19 Thiamine HCl [Vitamin B-1*] 100 mg PO DAILY #30 tablet 10/16/19 lisinopriL [Prinivil*] 5 mg PO DAILY #30 tab 10/16/19 predniSONE [Prednisone*] 20 mg FT BID #10 tab 10/16/19 - Past Medical/Surgical History Diabetic: No -: Hypertension -: Chronic back pain -: CHF -: Atrial Fibrillation -: History of CVA -: Depression -: COPD -: Dysphagia now with PEG tube -: Back surgery -: CABG -: PEG tube Psychosocial/ Personal History: Patient lives at home with his daughter - Family History Mother History Unknown: Yes Medical History: Heart disease Notes: Multiple strokes Father History Unknown: Yes - Social History Smoking Status: Current every day smoker Alcohol use: No CD- Drugs: No Caffeine use: No Place of Residence: Home Physical Examination Temp Pulse Resp BP Pulse Ox 97.7 F 69 24 H 107/54 L 91 11/24/19 08:00 11/24/19 09:16 11/24/19 08:00 11/24/19 09:16 11/24/19 08:00 - Problems (1) Respiratory failure Current Visit: Yes Status: Acute Plan: Patient is 64 years of age admitted with hypoxic hypercapnic respiratory failure he seems to have cardiomegaly and a loculated effusion on the right side recently presented with severe bilateral pneumonia patient has a PEG tube is currently intubated laboratory data reviewed white count is normal is hypokalemic hypoxic hypercapnic amador virus negative
[2019-11-24] MEDS ORDERED: LORazepam 2 MG/ML VIAL ONE ×2 (13:09→15:15)
[2019-11-24] MEDS: LORazepam 2 MG/ML VIAL IV PRN ×2 (13:09→15:06)
--- NOTE | 2019-11-24 13:26 | P.PN ---
Subjective Date of Service: 11/24/19 Chief Complaint: Respiratory failure Patient remained confused. He was not tolerating BiPAP and was taking it off. Blood gases have shown CO2 retention. Bicarb level very high today. Patient intubated for CO2 retention. He was given a muscle relaxant-rocuronium and suxamethonium for intubate and started on propofol drip. Systolic blood pressure dropped in the 60s. Patient given 500 mL bolus of normal saline. Repeat ABG shows improvement in PCO2 but patient is alkalotic. He has been having PVCs. Potassium level is low which is being replaced. Nurse report possible seizure activity. Family states patient continue to drink alcohol. Family-Daugter updated on patient's current condition. Physical Examination - Vital Signs Temperature: 97.7 F Blood Pressure: 107/54 Pulse: 69 Respirations: 24 Pulse Ox (%): 91 - Physical Exam General: Other (Sedated) HEENT: Other (Intubated.) Neck: Supple Respiratory: Diminished (Bilateral) Cardiovascular: Other (Bilateral lower extremity edema significantly improved.) Gastrointestinal: Normal bowel sounds, Soft and benign, Other (PEG tube) Integumentary: Erythema (Bilateral lower extremities) Neurological: Other (Sedated. Nonfocal.) Assessment And Plan - Current Problems (Diagnosis) (1) Anasarca Current Visit: Yes Status: Acute (2) Acute on chronic diastolic heart failure Current Visit: Yes Status: Acute (3) Chronic atrial fibrillation Current Visit: No Status: Acute (4) Pleural effusion Current Visit: No Status: Acute (5) Metabolic encephalopathy Current Visit: Yes Status: Acute (6) Acute respiratory failure with hypercapnia Current Visit: Yes Status: Acute (7) Metabolic alkalosis Current Visit: Yes Status: Acute (8) Seizure-like activity Current Visit: Yes Status: Acute (9) Alcohol use Current Visit: No Status: Acute - Plan Continue mechanical ventilation. CO2 improved after intubation. I suspect metabolic alkalosis/contraction alkalosis contributing. Discontinue IV Lasix. Monitor renal function. Patient is slated for 500 mL bolus. Also ordered albumin infusion. Levophed drip and blood pressure does not respond to NS bolus and albumin infusion. Pulmonary consult appreciated. Monitor intake and output. Repeat troponin. Hold tube feeding. Empiric IV antibiotics given bilateral opacities on the x-ray. Probable fall on hold secondary to hypotension. Ativan p.r.n. for agitation. Monitor blood gas Bronchodilators. IV Keppra. Neurology consult. Critical Care: Yes (Critical care time spent was about 62 min) Time Spent Managing PTS Care (In Minutes): 78
[2019-11-24 13:42] LABS: Arterial Blood Carboxyhemoglob 2.7 % (0-1.5); Blood Gas Oxyhemoglobin 90.4 % (94-97); Blood O2 Saturation 93.5 % (92-98.5)
[2019-11-24 13:52] LABS: Albumin 2.4 g/dL (3.4-5.0); Troponin I 0.21 ng/mL (0.0-0.045)
[2019-11-24] MEDS ORDERED: Levofloxacin 750mg IV 750 MG/150 ML BAG IV SCH (14:00)
[2019-11-24] MEDS ORDERED: NOREPINEPHRINE 4 MG in D5W 250 ML IV PRN (14:03)
[2019-11-24] MEDS: levETIRAcetam 500 MG in NA CHLORIDE 0.9% 100 ML IV SCH ×2 (14:18→20:44)
[2019-11-24 14:23] LABS: BUN Blood Urea Nitrogen 16 mg/dL (7-18); Glucose Level 73 mg/dL (74-106); Magnesium 1.9 mg/dL (1.8-2.4); Phosphorus 1.1 mg/dL (2.5-4.9); Potassium 3.4 mmol/L (3.5-5.1); Sodium Level 146 mmol/L (136-145)
[2019-11-24 14:46] LABS: Bicarbonate > 45 mmol/L (21-32)
[2019-11-24] MEDS ORDERED: Levofloxacin 750mg IV 750 MG/150 ML BAG IV ONE (14:52)
[2019-11-24] MEDS ORDERED: KCL 20 MEQ/100 mL IVPB 20 MEQ/100 ML BAG IV ONE ×2 (14:53→21:26)
[2019-11-24] MEDS ORDERED: NA CHLORIDE 0.9% 500 ML IV ONE (15:47)
[2019-11-24] MEDS ORDERED: WATER FOR INJ,STERILE 10 ML IV PRN (15:59)
[2019-11-24] MEDS ORDERED: ACETAZOLAMIDE 500 MG IV IV ONE (16:00)
[2019-11-24] MEDS ORDERED: levETIRAcetam 500 MG in NA CHLORIDE 0.9% 100 ML IV ONE (16:00)
[2019-11-24] MEDS ORDERED: KCL 20 MEQ/100 mL IVPB 20 MEQ/100 ML BAG IV SCH ×2 (16:00→21:00)
[2019-11-24 16:10] LABS: Thyroid Stimulating Hormone 3.08 uIU/mL (0.360-3.740); Uric Acid 6.6 mg/dL (3.5-7.2)
[2019-11-24] MEDS: PIPER/TAZO/NS 3.375gm 3.375 GM/100 ML BAG IVPB SCH (16:32)
[2019-11-24] MEDS: NS KCL 40MEQ 40 MEQ/1,000 ML BAG IV SCH (16:34)
[2019-11-24] MEDS: NA CHLORIDE 0.9% 1,000 ML IV SCH (16:34)
[2019-11-24] MEDS ORDERED: MAGNESIUM SULFATE 1 gm IVPB 1 GM/100 ML BAG IV ONE ×2 (16:43→17:00)
[2019-11-24] MEDS ORDERED: PIPER/TAZO/NS 3.375gm 3.375 GM/100 ML BAG ONE ×2 (16:43→23:45)
--- NOTE | 2019-11-24 17:22 | RAD REPORT ---
EXAM DESCRIPTION: RAD - Chest Single View - 11/24/2019 5:14 pm CLINICAL HISTORY: Device placement PICC line placement IMPRESSION: PICC line with its tip in the distal superior vena cava
[2019-11-24 19:49] VITALS: O2SAT 100
[2019-11-24 20:17] LABS: BUN Blood Urea Nitrogen 18 mg/dL (7-18); Bicarbonate > 45 mmol/L (21-32); Glucose Level 82 mg/dL (74-106); Sodium Level 149 mmol/L (136-145)
[2019-11-24 20:20] LABS: Potassium 2.8 mmol/L (3.5-5.1)
[2019-11-24 20:24] LABS: Magnesium 2.1 mg/dL (1.8-2.4)
[2019-11-24 20:25] LABS: Phosphorus 0.7 mg/dL (2.5-4.9)
[2019-11-24] MEDS ORDERED: FAMOTIDINE 20 MG/2 ML VIAL IV ONE (20:44)
[2019-11-24] MEDS: FAMOTIDINE 20 MG/2 ML VIAL IV SCH (20:44)
[2019-11-24] MEDS: POTASSIUM PHOS IN 0.9 % NACL 15 MMOL/250 ML BAG IV SCH (20:59)
[2019-11-24] MEDS: POTASSIUM PHOS IN 0.9 % NACL 30 MMOL/500 ML BAG IV ONE ×2 (21:00→21:02)
--- NOTE | 2019-11-24 21:19 | CON ---
Date of Consultation: 11/24/2019 Reason For Consultation: Frequent ectopies. History Of Present Illness: A 64-year-old male with very complicated medical history including hyper tension, congestive heart failure, atrial fibrillation, CVA, COPD, history of coronary artery bypass surgery. He has a PEG tube. He presented to the hospital with an edema all over and shortness of br eath. Apparently, the patient was admitted on the floor initially and he started to get altered, mor e short of breath, and went into acute mixed hypoxic and hypercapnic respiratory failure, required in tubation. On telemetry, he has been having frequent PVCs and short runs of nonsustained V-tach. As such, I was consulted. The patient is intubated and unable to take any history from him. Past Medical History: As outlined above in the HPI with add on of chronic alcoholism. Medications: Refer to reconciliation sheet for detailed list. Allergies: NO KNOWN DRUG ALLERGIES. Social History: Drinks alcohol. Does not smoke or use any drugs. Review of Systems: Unable to review due to being intubated and mental status is completely altered. Physical Examination: Vital Signs: Temperature is 97.7, pulse 69, breathing at 24, blood pressure is 107/54, saturating 96 % on mechanical ventilator. Head and Neck: There is no cervical lymphadenopathy. No JVD. Lungs: Rhonchi bilaterally with breathing comfortably with the vent. Heart: Irregular. No extra sounds. Abdomen: Soft, nontender. Bowel sounds positive. Extremities: No clubbing, cyanosis. Intact pulses. Skin: No rash. No nodules. Neuro: Sedated on the vent. Lymph Nodes: No cervical or axillary lymphadenopathy. Investigations: Sodium 146, potassium 3.4, earlier was 2.9. Creatinine 0.99, magnesium 1.9. Tropon in 0.21 and first troponin was 0.06. NT-proBNP was 2356. Chest x-ray, bilateral pleural effusion an d infiltrates. Assessment And Plan: 1.Respiratory failure, hypoxic and hypercapnic, is being managed by Pulmonary on the ventilator. A congestive heart failure could be a component of the etiology. Obtain echocardiogram please and do s erial sets of cardiac enzymes and recommend IV diuresis and Lasix 40 mg IV q.8 hours and monitor care fully BUN, creatinine, electrolytes. Further plan and recommendations based on the echocardiogram magalie melendez. 2.Frequent premature ventricular contractions and short runs of the ventricular tachycardia. Please make sure potassium level is above 4 and magnesium level is above 2. Do serial sets of cardiac enzy mes and obtain echo to further evaluate and treat the congestive heart failure with IV Lasix as above . 3.Congestive heart failure with bilateral pleural effusion and likely pulmonary edema. Obtain echo to further evaluate. SR/MODL Voice ID: [id number] Report ID: [id number]
[2019-11-25] MEDS: PIPER/TAZO/NS 3.375gm 3.375 GM/100 ML BAG IVPB SCH ×3 (00:25→16:48)
[2019-11-25] MEDS: POTASSIUM PHOS IN 0.9 % NACL 15 MMOL/250 ML BAG IV SCH (00:39)
[2019-11-25] MEDS: NS KCL 40MEQ 40 MEQ/1,000 ML BAG IV SCH (07:20)
[2019-11-25] MEDS ORDERED: propofoL 1,000 MG/100 ML VIAL IV ONE ×2 (07:31→23:01)
[2019-11-25] MEDS ORDERED: POTASSIUM PHOS 20 MM in NA CHLORIDE 0.9% 500 ML IV ONE (07:47)
[2019-11-25 07:52] LABS: Absolute Lymphocytes (CBC) 1.5 K/uL (0.7-4.9); Hematocrit 36.6 % (39.6-49.0); Lymphocytes % 13.7 % (15.3-44.8); MPV 9.4 fL (7.6-11.3); RBC Red Blood Cell Count 4.57 M/uL (4.33-5.43)
[2019-11-25] MEDS ORDERED: POTASSIUM CL 40 MEQ in NA CHLORIDE 0.9% 500 ML IV SCH ×2 (08:00→12:00)
[2019-11-25 08:21] LABS: Albumin 1.9 g/dL (3.4-5.0); Bilirubin Total 1.9 mg/dL (0.2-1.0); Magnesium 1.9 mg/dL (1.8-2.4); Phosphorus 2.1 mg/dL (2.5-4.9); Protein, Total 5.3 g/dL (6.4-8.2); Troponin I 0.35 ng/mL (0.0-0.045)
[2019-11-25 08:28] LABS: Potassium 2.4 mmol/L (3.5-5.1)
[2019-11-25] MEDS: KCL 20 MEQ/100 mL IVPB 20 MEQ/100 ML BAG IV SCH ×3 (08:33→18:23)
[2019-11-25] MEDS: Magnesium Sulfate 2gm IVPB 2 G/50 ML BAG IV ONE ×2 (08:34)
[2019-11-25] MEDS ORDERED: Magnesium Sulfate 2gm IVPB 2 G/50 ML BAG IV ONE (08:39)
[2019-11-25] MEDS ORDERED: KCL 20 MEQ/100 mL IVPB 60 MEQ/300 ML BAG IV ONE (08:39)
[2019-11-25] MEDS: levETIRAcetam 500 MG in NA CHLORIDE 0.9% 100 ML IV SCH ×2 (08:54→22:16)
--- NOTE | 2019-11-25 08:57 | P.PN ---
Subjective Date of Service: 11/25/19 Chief Complaint: Respiratory failure Subjective: No new changes (intubated, sedated Nursing reports no seizure activity overnight. Continues to have frequent PVCs / non-sustained Vtach) Physical Examination - Vital Signs Temperature: 97.9 F Blood Pressure: 138/63 Pulse: 82 Respirations: 17 Pulse Ox (%): 100 - Physical Exam General: Other (intubated/sedated) Respiratory: Rhonchi/gurgles (mild bilaterally at bases) Cardiovascular: Edema (2+ b/l up to thighs), Irregular heart rate/rhythm (PVCs, non-sustained Vtach (for 3-5 seconds) ) Gastrointestinal: Hypoactive, Soft and benign, Non-distended Musculoskeletal: No erythema Assessment & Plan Physician Review Additional Text: Anasarca, Acute on chronic diastolic heart failure Pleural effusion Chronic atrial fibrillation frequent PVCs & nonsustained VTach Metabolic encephalopathy Acute respiratory failure with hypercapnia Metabolic alkalosis Seizure-like activity Alcohol use Anasarca, Acute on chronic diastolic heart failure Pleural effusion Chronic atrial fibrillation frequent PVCs & nonsustained VTach -initially receiving IV lasix 40mg BID, then held due to concern for contraction akalosis and hypotension -cardiology consulted appreciate assistance - TTE ordered for today -monitoring and replacing electrolytes -PVCs and nonsustained Vtach seem to be increasing in frequency overnight -will discuss with cardiology - ?start beta scarlett vs amiodarone Metabolic encephalopathy Acute respiratory failure with hypercapnia Metabolic alkalosis Seizure-like activity Alcohol use -per nursing report - witnessed seizure-like activity on 11/23, started on Keppra -concern for alcohol withdrawal / delirium tremens, started thiamine and folic acid on 11/24 -intubated on 11/23 due to hypercarbia and metabolic encephalopathy -pulmonology consulted for assistance with ventilator management -nephrology consulted given metabolic alkalosis and electrolyte abnormalities -neurology consulted due to seizure-like activity -tube feeding held yesterday -Empiric IV antibiotics (zosyn & levaquin) started on 11/23 due to bilateral opacities on x-ray. Dispo: continue ICU level of care Time Spent Managing Pts Care (In Minutes): 45
[2019-11-25] MEDS ORDERED: FOLIC ACID 5 MG/ML VIAL IVP SCH (09:00)
[2019-11-25] MEDS ORDERED: THIAMINE 200 MG/2 ML INJ IVP SCH (09:00)
[2019-11-25] MEDS: FAMOTIDINE 20 MG/2 ML VIAL IV SCH ×2 (09:00→22:15)
[2019-11-25] MEDS ORDERED: FOLIC ACID 1 MG in NA CHLORIDE 0.9% 50 ML IV SCH (09:00)
--- NOTE | 2019-11-25 09:05 | CON ---
Date of Consultation: 11/24/2019 Chief Complaint: Congestive heart failure, fluid overload, electrolyte abnormalities, metabolic em losis. History Of Present Illness: Patient is a 64-year-old man with chronic diastolic congestive heart olivia lure, history of dysphagia. Previously, he had a PEG tube placed. He presented to the hospital [facility] use of severe shortness of breath with generalized weakness and hypoxemic respiratory failure. He wa s started on Lasix for volume control. Primarily, he was admitted on 11/20/2019 and underwent cardia c workup to rule out acute coronary syndrome. He has history of chronic diastolic heart failure and CVA. He is not a very good historian. Currently, he is intubated, cannot provide medical history. Medical history is reviewed from the chart. Past Medical History: Includes hypertension, chronic back pain, osteoarthritis, congestive heart olivia lure, hypertensive heart disease, atrial fibrillation, CVA, depression, COPD, dysphagia with PEG, ___ , coronary artery disease, PEG tube placement. Family History: Mother had multiple strokes. Social History: Denies tobacco, alcohol, or illicit drugs. Review of Systems: Unobtainable. Patient is intubated, ventilated. Physical Examination: General: Patient is intubated, ventilated. Eyes: Anicteric sclerae. Neck: Supple. No bruits. Lungs: Bilateral breath sounds present. No wheezing. No rhonchi. Heart: S1 and S2. No pericardial friction rub. Abdomen: Soft, benign. No rebound. No guarding. Extremities: Edema bilaterally present. Chronic dermatitis. No oozing. No drainage. Neurological: No tremor. No seizure. Patient moving extremities. Skin: Warm and dry. There is peripheral edema, anasarca. Laboratory Data: Sodium 138, potassium 3.9, BUN 9, creatinine 0.85, glucose 108, magnesium 2.4, AP 1 76, hemoglobin 12.0, WBC 9.1, platelet count 156,000. Sodium 146, potassium 3.4, chloride 92, bicarbonate greater than 45, BUN 16, creatinine 0.9, calcium 8.9, phosphorus 1.1, magnesium 1.9. Sodium 149, potassium 2.8, chloride 97, CO2 of 45, BUN 18, creatinine 0.97, magnesium 2.1, phosphorus 0.7. Impression And Plan: 1.Congestive heart failure, fluid overload, respiratory failure, severe metabolic alkalosis, hypopho sphatemia, and hypomagnesemia. Patient has history of alcohol intake and poor nutrition, he has PEG tube placement. Patient will need to have replacement with electrolytes and potassium phosphate was started for severe hypophosphatemia. Patient has metabolic alkalosis and he will have Diamox to brenadine t metabolic alkalosis. Patient will continue sodium chloride infusion. Patient receives normal sali ne bolus and Lasix currently is on hold. Patient will require potassium replacement to treat electro lyte abnormalities and provide management for metabolic alkalosis. 2.History of alcohol abuse. Continue thiamine and advance nutrition. Monitor phosphorus level and continue phosphorus replacement. 3.History of coronary artery disease. Patient presented with congestive heart failure. Recommend c ardiac workup when patient is stable and further recommendation appreciated from Cardiology. TAO/MODL Voice ID: [id number] Report ID: [id number]
[2019-11-25] MEDS: propofoL 1,000 MG/100 ML VIAL IV PRN ×2 (09:12→22:55)
[2019-11-25] MEDS: NICOTINE 21 MG/PAT TD SCH (09:17)
[2019-11-25] MEDS: ENOXAPARIN 40 MG/0.4 ML SQ SCH (09:18)
[2019-11-25] MEDS ORDERED: NICOTINE 21 MG/PAT TD ONE (09:29)
[2019-11-25] MEDS ORDERED: FAMOTIDINE 20 MG/2 ML VIAL IV ONE ×2 (09:29→22:23)
[2019-11-25] MEDS ORDERED: ENOXAPARIN 40 MG/0.4 ML SQ ONE (09:29)
[2019-11-25] MEDS ORDERED: AMIODARONE HCL 900 MG in Dextrose 5%-Water 482 ML IV SCH (10:00)
--- NOTE | 2019-11-25 10:46 | EKG ---
Test Date: 2019-11-24 Test Time: 12:23:57 Play Therapist: DIALLO MEASUREMENT RESULTS: Intervals: Rate: 84 TX: QRSD: 114 QT: 422 QTc: 498 [place]: P: TX: QRS: 14 T: 108 INTERPRETIVE STATEMENTS: afib Left ventricular hypertrophy with repolarization abnormality Prolonged QT Abnormal ECG Compared to ECG 11/20/2019 09:59:04 Prolonged QT interval now present Sinus bradycardia no longer present Electronically Signed On 11-25-19 10:44:56 CDT by Gabriel Monsalve
[2019-11-25] MEDS: NA CHLORIDE 0.9% 1,000 ML IV SCH (12:00)
--- NOTE | 2019-11-25 12:07 | P.PN ---
Subjective Date of Service: 11/30/19 Chief Complaint: Respiratory failure and frequent V-tach No change in patient's condition minimally responsive frequent episodes of V- tach Physical Examination - Vital Signs Temperature: 97.9 F Blood Pressure: 138/63 Pulse: 82 Respirations: 17 Pulse Ox (%): 100 - Physical Exam General: Unresponsive Respiratory: Clear to auscultation bilaterally Cardiovascular: Regular rate/rhythm Assessment & Plan - Problems (Diagnosis) (1) Respiratory failure Status: Acute Plan: Patient is in respiratory failure intubated hemodynamically unstable frequent episodes of the tach patient started on amiodarone the new with electrolyte replacement start PEG tubes to water replacement Dc level Floxin weaned off propofol use Ativan is no clinical evidence of sepsis he has an FiO2 50% saturating 100% Qualifiers: Chronicity: acute on chronic
[2019-11-25] MEDS ORDERED: KCL 20 MEQ/100 mL IVPB 40 MEQ/200 ML BAG IV ONE (12:25)
[2019-11-25 12:34] LABS: Blood Gas Oxyhemoglobin 96.6 % (94-97); Blood O2 Saturation 99.3 % (92-98.5)
--- NOTE | 2019-11-25 12:59 | PN ---
Date of Progress Note: 11/25/2019 Subjective: The patient was admitted with CHF exacerbation, diastolic dysfunction. The patient afte r aggressive diuresis had low blood pressure, hypercapnic respiratory failure, intubated. The patien t had declined severe depleted potassium and magnesium with alkalosis. For that reason, we have been consulted. Over the night, we gave the patient IV fluid. Blood pressure has been stabilized. Objective: Vital Signs: Blood pressure 138/63, pulse of 82, afebrile. The patient continued to hav e good urine output of 800. The patient was even balanced. Chest: Clear to auscultation. Heart: S1, S2. Systolic murmur. Abdomen: Soft, nontender. Extremities: Trace edema, erythema bilateral. Neuro: The patient is sedated, on vent. Laboratory Data: Sodium 149, potassium 2.4, bicarb 39, BUN 18, creatinine 1, GFR of 70, phosphorus 2 .1, calcium 7.4, magnesium 1.9. BNP 2300. TSH is 3.08. WBC 10.7, H and H 11.5/36.6, platelet 140. Current Medications: The patient on its include; 1.Zosyn. 2.Lovenox. 3.Amiodarone. 4.Keppra. 5.Midazolam. 6.Pepcid. 7.Magnesium oxide. 8.KCl. 9.K-Phos. 10.Thiamine. 11.IV fluid with KCl at 75 per hour. Assessment And Plan: 1.Contraction alkalosis secondary to over diuresis, complicated with severe hypokalemia, hypernatrem ia and hypomagnesemia. Looked to me started to be normal volume. I am going to go ahead and decreas e IV fluid to 50 per hour and we will follow up the patient. Given the hypernatremia, I am going to change IV fluid to D5 half to avoid worsening in the hypernatremia. 2.Hypernatremia. Change IV fluid to D5 half with KCl and we will monitor. 3.Hypomagnesemia, hypophosphatemia, hypokalemia. We will continue supplement. If persist even afte r stopping the diuresis, at that time I am going to send for urine electrolyte and we will follow up. TONIE/ALICE Voice ID: [id number] Report ID: [id number]
[2019-11-25] MEDS ORDERED: D5.45NS W/KCL 40MEQ 40 MEQ/1,000 ML BAG IV SCH (13:00)
[2019-11-25] MEDS ORDERED: JEVITY 1.5 CAL LIQUID 1,000 ML BOT RTH SCH (14:00)
[2019-11-25 16:35] LABS: Magnesium 2.5 mg/dL (1.8-2.4)
[2019-11-25] MEDS ORDERED: PNEUMOCOCCAL VACCINE 0.5 ML IMVAC ONE (16:55)
[2019-11-25] MEDS ORDERED: PIPER/TAZO/NS 3.375gm 3.375 GM/100 ML BAG ONE (16:55)
[2019-11-25] MEDS ORDERED: NOREPINEPHRINE 4 MG in D5W 250 ML IV PRN (18:36)
[2019-11-25] MEDS ORDERED: LEVETIRACETAM 500 MG/5 ML VIAL IV ONE ×2 (22:20→22:23)
[2019-11-25] MEDS ORDERED: POTASSIUM PHOS IN 0.9 % NACL 30 MMOL/500 ML BAG IV ONE (22:49)
[2019-11-25] MEDS: POTASSIUM PHOS IN 0.9 % NACL 30 MMOL/500 ML BAG IV ONE ×2 (22:51→23:27)
[2019-11-25 23:46] LABS: Albumin 1.8 g/dL (3.4-5.0); Potassium 4.9 mmol/L (3.5-5.1); Protein, Total 5.4 g/dL (6.4-8.2)
[2019-11-26] MEDS: PIPER/TAZO/NS 3.375gm 3.375 GM/100 ML BAG IVPB SCH ×2 (01:00→09:00)
[2019-11-26 05:31] LABS: Absolute Lymphocytes (CBC) 2.2 K/uL (0.7-4.9); Basophils % 0.8 % (0-1.3); Hematocrit 41.8 % (39.6-49.0); Lymphocytes % 14.2 % (15.3-44.8); RBC Red Blood Cell Count 5.25 M/uL (4.33-5.43)
--- NOTE | 2019-11-26 05:44 | PN ---
Date of Progress Note: 11/25/2019 Subjective: Mr. Tex Vergara is a 64-year-old who has an extensive past medical history. He remain s intubated now, has had a history of coronary artery bypass surgery, CVA, hypertension, congestive h eart failure, COPD, and atrial fibrillation. He has also a PEG tube. The patient has been taking am iodarone and Lasix in addition to aspirin, Lipitor, lisinopril, inhalers, prednisone, and Eliquis at home. He also takes metoprolol, metolazone, and potassium at home. Since he has been here, been int ubated, he has not gotten his amiodarone. He has had multiple episodes of ventricular tachycardia. Plan: I recommend to put him on IV amiodarone after a bolus and a drip. Echocardiogram is pending. He is improving from an oxygenation and diuresis standpoint. We will continue to follow him. The p atient is on Lovenox. LAY/ALICE Voice ID: [id number] Report ID: [id number]
[2019-11-26 05:46] LABS: Albumin 1.9 g/dL (3.4-5.0); Magnesium 2.4 mg/dL (1.8-2.4); Phosphorus 3.8 mg/dL (2.5-4.9); Potassium 4.8 mmol/L (3.5-5.1); Protein, Total 5.5 g/dL (6.4-8.2)
[2019-11-26] MEDS ORDERED: LORazepam 2 MG/ML VIAL ONE (07:26)
--- NOTE | 2019-11-26 08:03 | ECHO ---
HEIGHT: 5 ft 8 in WEIGHT: 180 lb 0 oz DATE OF STUDY: 11/25/[address]: William Balderas 2-DIMENSIONAL: YES M.MODE: YES DOPPLER: YES COLOR FLOW: YES TDS: YES PORTABLE: DEFINITY: BUBBLE STUDY: DIAGNOSIS: CONGESTIVE HEART FAILURE CARDIAC HISTORY: CATHERIZATION: SURGERY: PROSTHETIC VALVE: PACEMAKER: MEASUREMENTS (cm) DIASTOLIC (NORMALS) SYSTOLIC (NORMALS) IVSd 1.1 (0.6-1.2) LA Diam (1.9-4.0) LVEF 20-25% LVIDd 2.8 (3.5-5.7) LVIDs 2.0 (2.0-3.5) %FS % LVPWd 0.8 (0.6-1.2) Ao Diam 3.0 (2.0-3.7) 2 DIMENSIONAL ASSESSMENT: RIGHT ATRIUM: NORMAL LEFT ATRIUM: NORMAL RIGHT VENTRICLE: NORMAL LEFT VENTRICLE: NORMAL SIZE TRICUSPID VALVE: NORMAL MITRAL VALVE: MITRAL ANNULAR CALCIFICATION PULMONIC VALVE: NORMAL AORTIC VALVE: SCLEROSIS PERICARDIAL EFFUSION: NONE AORTIC ROOT: NORMAL LEFT VENTRICULAR WALL MOTION: SEVERE GLOBAL HYPOKINESIS DOPPLER/COLOR FLOW: MODERATE TRICUSPID REGURGITATION. MODERATE PULMONARY HYPERTENSION. RIGHT VENTRICULAR SYSTOLIC PRESSURE 54 mmHg. COMMENTS: SEVERE GLOBAL HYPOKINESIS. EJECTION FRACTION 20-25%. MODERATE PULMONARY HYPERTENSION. RIGHT VENTRICULAR SYSTOLIC PRESSURE 54 mmHg. MITRAL ANNULAR CALCIFICATION. AORTIC SCLEROSIS. PLEURAL EFFUSION. TECHNOLOGIST: KARINA PRETTY/ RENNY JACOBS
[2019-11-26] MEDS ORDERED: D5 0.45 NS 500 ML IV ONE (08:37)
--- NOTE | 2019-11-26 10:02 | RAD REPORT ---
EXAM DESCRIPTION: RAD - Chest Single View - 11/26/2019 9:44 am CLINICAL HISTORY: intubated, CHF Chest pain. COMPARISON: Chest Single View dated 11/24/2019; Chest Single View dated 11/24/2019; Chest Single View dated 11/20/2019; Chest Single View dated 10/14/2019 FINDINGS: Portable technique limits examination quality. Tip of the ET tube is above the shruthi. Bilateral pulmonary opacities with right greater than left pl eural effusions appear stable. The heart is mildly prominent size with sternotomy wires present. Righ t-sided PICC line is unchanged in position. IMPRESSION: Stable chest since 11/24/2019.
[2019-11-26] MEDS: FAMOTIDINE 20 MG/2 ML VIAL IV SCH (10:28)
[2019-11-26] MEDS ORDERED: NICOTINE 21 MG/PAT TD ONE (10:33)
[2019-11-26] MEDS ORDERED: PIPER/TAZO/NS 3.375gm 3.375 GM/100 ML BAG ONE (10:34)
[2019-11-26] MEDS ORDERED: FAMOTIDINE 20 MG/2 ML VIAL IV ONE (10:34)
[2019-11-26] MEDS ORDERED: ENOXAPARIN 40 MG/0.4 ML SQ ONE (10:34)
[2019-11-26] MEDS ORDERED: D5 0.45 NS 1,000 ML IV SCH (11:00)
[2019-11-26] MEDS ORDERED: ROCURONIUM 50 MG/5 ML VIAL IV ONE (12:15)
[2019-11-26] MEDS ORDERED: SUCCINYLCHOLINE 20 MG/ML (10 ML) IV ONE (12:15)
--- NOTE | 2019-11-26 12:30 | PN ---
Date of Progress Note: 11/26/2019 Subjective: The patient was admitted with respiratory failure, alkalosis. Has contraction alkalosis secondary to over diuresis and depleted electrolyte. Physical Examination: Vital Signs: When I saw the patient, blood pressure 139/65, pulse of 67. The patient had urine outp ut of 1 L, positive 1300. Chest: Decreased air entry bilateral base. Faint rales on the left. Heart: S1, S2. Systolic murmur. Abdomen: Soft, nontender. Extremities: No edema. Laboratory Data: WBC 13.3, H and H 13/41.8, platelets 123. Sodium 146, potassium 4.8, bicarb 29, BU N 19, creatinine 0.9, GFR of 81, calcium 7.2, phosphorus 3.8, magnesium 2.4. Current Medications: The patient on include; 1.Zosyn. 2.Amiodarone. 3.Lovenox. 4.Keppra. 5.Folic acid. 6.D5 half. Assessment And Plan: 1.Contraction alkalosis, recovered, resolved. Continue current hydration. 2.Hypernatremia secondary to over diuresis. Keep holding Lasix. Continue current IV fluid D5 half. 3.Hypokalemia, status post supplement, recovered, resolved. 4.Hypomagnesemia, resolved. 5.Respiratory failure secondary to congestive heart failure, pneumonia, recovering. Continue vent. Follow up with Pulmonary. TONIE/ALICE Voice ID: [id number] Report ID: [id number]
--- NOTE | 2019-11-26 12:42 | P.PN ---
Subjective Date of Service: 11/30/19 Chief Complaint: Respiratory failure and frequent V-tach Patient is much more stable no longer has V-tach occured an alkalosis Review of Systems is unable to be obtained Physical Examination - Vital Signs Temperature: 98.9 F Blood Pressure: 139/65 Pulse: 67 Respirations: 17 Pulse Ox (%): 98 - Physical Exam General: Unresponsive Respiratory: Clear to auscultation bilaterally Cardiovascular: No edema, Regular rate/rhythm Assessment & Plan - Problems (Diagnosis) (1) Respiratory failure Status: Acute Plan: P patient admitted with respiratory failure he is much more stable now patient has a respiratory alkalosis the to reduce his vent rate sputum cultures negative white count mildly elevated blood cultures have been sent currently on Zosyn patient was started on amiodarone yesterday mildly hypernatremic he has only an FiO2 of 35% can be weaned off patient is stable for transfer to [place] chest x- ray abnormal has partially loculated effusion was recently admitted with is pneumonia no recent history of AH alcohol intake Qualifiers: Chronicity: acute on chronic
--- NOTE | 2019-11-26 13:41 | P.DS ---
Admission Date: 11/22/19 Discharge Date: 11/26/19 Disposition: TRANSFER TO [facility] Discharge Condition: CRITICAL Reason for Admission: Respiratory failure and frequent V-tach Consultations: Cardiology - Dr. Balderas & Gricel Pulmonology - Dr. Pierre Neurology - Dr. Morris Nephrology - Dr. Kirby-Alphonso & Dolly Procedures: CXR (11/19): Bilateral pleural effusions with bilateral lung base infiltrate and or atelectasis. Left pleural effusion noted. Liver ultrasound (11/19): Increased hepatic echotexture consistent with parenchymal disease. This may represent fatty infiltration or inflammation. Unremarkable spleen CXR (11/23): Endotracheal tube in good position. Her estimated aortic arch level, of the alert edema or infiltrate changes superimposed on chronic interstitial lung disease, chronic bilateral lung base pleural and parenchymal opacifications CXR (11/25): Tip of the ET tube is above the shruthi. Bilateral pulmonary opacities with right greater than left pleural effusions appear stable. The heart is mildly prominent size of sternotomy wires present. Right-sided PICC line is unchanged in position. TTE (11/23): Severe global hypokinesis. EF 20-25%. Moderate pulmonary hypertension. RV systolic pressure: 54mmHg, mitral annular calcification, aortic sclerosis, pleural effusion. Moderate tricuspid regurgitation Problem list Anasarca, Acute on chronic diastolic heart failure Pleural effusion elevated troponins frequent PVCs & nonsustained VTach Metabolic encephalopathy Acute respiratory failure with hypercapnia Metabolic alkalosis Seizure-like activity h/o CVA with residual dysphagia (s/p PEG Tube placement) Chronic atrial fibrillation h/o CAD s/p CABG Alcohol use Brief History of Present Illness: 64-year-old gentleman with a history of chronic diastolic heart failure, CVA, dysphagia on PEG tube feeding was brought to the emergency department due to increasing lower extremity swelling. Patient is on Lasix therapy which he stated he has been compliant with. He also stated he ran out of his other med ications and has been experiencing increasing swelling of his lower extremities. His daughter asked him to come to the ER to be evaluated. His chest x-ray shows bilateral pleural effusion. His serum creatinine is normal. BNP elevated. Patient is admitted for CHF exacerbation. Hospital Course: by problem: Anasarca, Acute on chronic diastolic heart failure Pleural effusion Chronic atrial fibrillation h/o CAD s/p CABG elevated troponins frequent PVCs & nonsustained VTach -Patient received IV 80 mg Lasix b.i.d. from admission on 11/19 until the morning of 11/23. , then held due to concern for contraction akalosis, hypotension, and electrolyte abnormalities -Troponin (11/19): 0.06, Troponins from 11/23 to 11/24: 0.21-> 0.35-> 0.29 -Cardiology was consulted and a TTE was obtained: poor EF 20-25% as noted above. -it was felt this his elevated troponins were likely secondary to demand ischemia -On 11/23 and into 11/24 patient was noted to have PVCs and nonsustained Vtach (~4-5 seconds every few minutes), which seemed to be increasing in frequency. The patient was started on amiodarone drip with resolution of the arrhythmia. Patient has a history of chronic AFib and was noncompliant with his home amiodarone. -throughout his hospitalization patient was treated with Lovenox 40 mg daily for DVT prophylaxis -His kidney function remained fairly stable. Creatinine: 0.85 on admission, peaked at 1.06 on 11/24, and was 0.94 on the morning of transfer. Metabolic encephalopathy Acute respiratory failure with hypercapnia Metabolic alkalosis Alcohol use The morning of 11/24/2019, patient was reportedly still confused, refusing to wear his BiPAP, an ABG was consistent with significant CO2 retention and hypoxemia ABG (11/22): 7.27/114/115/50/28% PH/pCO2/PO2/8 CO3/FiO2 ABG (11/22): 7.38/88.4/71.8/51.1/35% ABG (11/23): 7.63/49.8/54.9/53.4/40% (after intubation) ABG (11/24): 7.59/36.3/118/35/40% He was intubated on the morning of 11/23. Pulmonology was consulted, and a repeat chest x-ray at this time revealed bilateral pleural and parenchymal lung base opacification 's. Interstitial and alveolar opacities are present with feliz eolar opacification progressive from 11/19. He was started on Zosyn and Levaquin for possible pneumonia, however at that time he had no leukocytosis and remained afebrile. His Levaquin was discontinued on 11/24. Patient did not require pressor support. His family had discussed with the hospital physician on 11/23 that they would prefer patient be transferred to higher level of care and [place] would be much closer to their residence. Patient's case was discussed with Dr. Zamudio at [facility] in [place] who accepted the patient for transfer to PCU. On 11/23, patient was noted to have hypokalemia of 2.9 from 4.0 the day prior, hypophosphatemia down to 1.1. Nephrology was consulted given the electrolyte abnormalities and it was felt due to contraction alkalosis. This recovered/resolved with discontinuation of Lasix and gentle rehydration. Seizure-like activity h/o CVA with residual dysphagia (s/p PEG Tube placement) -per nursing report - witnessed seizure-like activity on 11/23, started on Keppra -concern for alcohol withdrawal / delirium tremens, started thiamine and folic acid on 11/24, however later that day family reported patient has not had an alcoholic drink in at least 3 weeks. Neurology was consulted for reported seizure-like activity. Differential was seizure vs alcohol withdrawal/ DTs (later eliminated), vs hypercarbia/hypoxemia He was started on IV Keppra 500mg BID on 11/23. tube feedings were initially held on 11/23 for intubation and transfer to ICU and resumed on 11/24 Below is a list of his home medications along with IV medications he was receiving (not including zosyn and amiodarone drip) Vital Signs/Physical Exam: Temp Pulse Resp BP Pulse Ox 98.9 F 67 17 139/65 98 11/26/19 12:42 11/26/19 12:42 11/26/19 12:42 11/26/19 12:42 11/26/19 12:42 General: Other (Intubated and sedated) HEENT: Sclerae nonicteric Respiratory: Diminished (At bases bilaterally), Crackles/rales (Bilaterally) Cardiovascular: Regular rate/rhythm, Edema (2+ up to upper thighs bilaterally) Gastrointestinal: Soft and benign, Non-distended, Other (PEG Tube in place) Musculoskeletal: No erythema Integumentary: No rashes Neurological: Other (intubated/sedated) Urinary: Martinze catheter (in place) Laboratory Data at Discharge: WBC 15.3 K/uL (4.3-10.9) H D 11/26/19 05:14 Hgb 13.0 g/dL (13.6-17.9) L 11/26/19 05:14 Hct 41.8 % (39.6-49.0) 11/26/19 05:14 Plt Count 123 K/uL (152-406) L 11/26/19 05:14 PT 14.8 SECONDS (9.5-12.5) H 11/20/19 10:05 INR 1.26 11/20/19 10:05 Sodium 146 mmol/L (136-145) H 11/26/19 05:14 Potassium 4.8 mmol/L (3.5-5.1) 11/26/19 05:14 BUN 19 mg/dL (7-18) H 11/26/19 05:14 Creatinine 0.94 mg/dL (0.55-1.3) 11/26/19 05:14 Glucose 80 mg/dL (74-106) 11/26/19 05:14 Uric Acid 6.6 mg/dL (3.5-7.2) 11/24/19 13:21 Phosphorus 3.8 mg/dL (2.5-4.9) D 11/26/19 05:14 Magnesium 2.4 mg/dL (1.8-2.4) 11/26/19 05:14 Total Bilirubin 2.0 mg/dL (0.2-1.0) H 11/26/19 05:14 AST 32 U/L (15-37) 11/26/19 05:14 ALT 18 U/L (12-78) 11/26/19 05:14 Alkaline Phosphatase 118 U/L (45-117) H 11/26/19 05:14 Troponin I 0.29 ng/mL (0.0-0.045) H 11/25/19 13:20 Triglycerides 34 mg/dL (<150) 11/21/19 05:42 Cholesterol 71 mg/dL (<200) 11/21/19 05:42 HDL Cholesterol 45 mg/dL (40-60) 11/21/19 05:42 Cholesterol/HDL Ratio 1.58 11/21/19 05:42 Home Medications: Ferrous Sulfate [Ferrous Sulfate*] 1 tab FT BID 10/09/19 Fluticasone [Flonase 50MCG Nasal [place]*] 2 spray JELENA DAILY 10/09/19 Furosemide [Lasix*] 40 mg FT DAILY 10/09/19 Lactulose [Cephulac*] 30 ml FT BID 10/09/19 Magnesium Oxide [Mag 0X*] 1 tab FT DAILY 10/09/19 Trazodone [Desyrel*] 1 tab FT BEDTIME 10/09/19 Arformoterol Tartrate [Brovana] 15 mcg NEB BIDRESP #60 vial.neb 10/16/19 Aspirin Chewable [Aspirin Chewable*] 81 mg FT DAILY #30 tab.chew 10/16/19 Atorvastatin Calcium [Lipitor] 40 mg FT BEDTIME #30 tab 10/16/19 Doxycycline Hyclate [Vibramycin] 100 mg PO BID #20 capsule 10/16/19 Thiamine HCl [Vitamin B-1*] 100 mg PO DAILY #30 tablet 10/16/19 lisinopriL [Prinivil*] 5 mg PO DAILY #30 tab 10/16/19 predniSONE [Prednisone*] 20 mg FT BID #10 tab 10/16/19 Enoxaparin Sodium [Lovenox 40 MG INJ*] 40 mg SQ DAILY syr 11/26/19 Famotidine [Pepcid*] 20 mg IV BID vial 11/26/19 Jevity 1.5 Barney Liquid 60 ml RTH TID bot 11/26/19 Midazolam HCl [Versed*] 2 mg IV Q2HP PRN vial 11/26/19 Nicotine [Nicoderm*] 21 mg TD DAILY patch.td24 11/26/19 Diet: NPO Time spent managing pt's care (in minutes): 60
--- NOTE | 2019-11-29 11:06 | PN ---
Date of Progress Note: 11/26/2019 Mr. Vergara has come in with multiple issues including acute respiratory failure, has been intubated an d remained intubated. He has had some ventricular tachycardia. The patient has had paroxysmal atria l fibrillation in the past. Yesterday, he was placed on amiodarone and his ventricular tachycardia h as resolved. He remains on antibiotics, Keppra, Lovenox and Lasix. His last creatinine is 0.99. Hi s blood gases show a pO2 of 118, pCO2 36, pH of 7.59. He is known to have an ejection of 20%. I thi nk there is a plan to transfer Mr. Vergara to a tertiary care center. I agree with his present regimen . Pulmonary is following and I agree with his regimen. We will be available for questions if the ne ed arises between now and the time he gets transferred. LAY/ALICE Voice ID: [id number] Report ID: [id number]
[2019-11-30 10:20] VITALS: BP 138/63; TEMP 97.9
== END 2019-11-26 13:00 | disposition short-term general hospital (02) | DRG 291 ==
LOC: ER 09:30 → ERHOLD 13:55 → INTOOBSV 13:55 → 2ND 15:48 → OBSVTOIN 11-22 06:20 → ERHOLD 11-24 10:28
PROVIDERS: ADMIT Internal Medicine; ATTEND Hospitalist
PROC: 5A1945Z Respiratory Ventilation, 24-96 Consecutive Hours (ICD-10-PCS; principal; 2019-11-24)
PROC: 0BH17EZ Insertion of Endotracheal Airway into Trachea, Via Natural or Artificial Opening (ICD-10-PCS; 2019-11-24)
PROC: 02HV33Z Insertion of Infusion Device into Superior Vena Cava, Percutaneous Approach (ICD-10-PCS; 2019-11-24)
DX: I11.0 Hypertensive heart disease with heart failure (principal); G93.41 Metabolic encephalopathy; J18.9 Pneumonia, unspecified organism; J96.21 Acute and chronic respiratory failure with hypoxia; J96.22 Acute and chronic respiratory failure with hypercapnia; I48.20 Chronic atrial fibrillation, unspecified; J44.0 Chronic obstructive pulmonary disease with (acute) lower respiratory infection; E87.3 Alkalosis; I47.2 Ventricular tachycardia; E87.0 Hyperosmolality and hypernatremia; I24.8 Other forms of acute ischemic heart disease; F10.239 Alcohol dependence with withdrawal, unspecified; I50.33 Acute on chronic diastolic (congestive) heart failure; Z93.1 Gastrostomy status; Z79.82 Long term (current) use of aspirin; Z79.899 Other long term (current) drug therapy; Z79.52 Long term (current) use of systemic steroids; G89.29 Other chronic pain; M54.9 Dorsalgia, unspecified; R60.1 Generalized edema; K76.9 Liver disease, unspecified; R79.89 Other specified abnormal findings of blood chemistry; F17.200 Nicotine dependence, unspecified, uncomplicated; E87.6 Hypokalemia; R56.9 Unspecified convulsions; Z95.1 Presence of aortocoronary bypass graft; I49.3 Ventricular premature depolarization; E83.39 Other disorders of phosphorus metabolism; E83.42 Hypomagnesemia; I69.391 Dysphagia following cerebral infarction; R13.10 Dysphagia, unspecified; Z91.14 Patient's other noncompliance with medication regimen; Z20.828 Contact with and (suspected) exposure to other viral communicable diseases
CPT/HCPCS: 36415; 71045; 76705; 80048; 80053; 80061; 80076; 82040; 82140; 82805; 83735; 83880; 84100; 84145; 84443; 84484; 84550; 85025; 85610; 87070; 87077; 87186; 87205; 90670; 93005; 93306; 94002; 94003; 94660; 94760; 96374; 99285; G0378; J0282; J0330; J1120; J1630; J1650; J1940; J1953; J2543; J2704; J3475; J3480; J7030; J7040; J7050; J7060; J7799; P9047; U0002; U0003